=== PATIENT | female | born 1990 | race Caucasian/White ===

== ENCOUNTER 2024-04-24 13:57 | Outpatient (OUT) | payer MEDICAID, SELFPAY ==
--- NOTE | 2024-04-24 13:59 | US_ITS ---
The [address] [address] Patient Name: ELLEN MITCHELL MRN: [id number] date: 1990 Sex: F Assigned Patient Location: Current Patient Location: Accession/Order Number: [id number] Exam Date: 04/24/2024 14:00 Report Date: 04/25/2024 06:34 At the request of: ISRAEL LUNA Procedure: US pelvis w/ transvaginal EXAMINATION: US pelvis w/ transvaginal HISTORY: Polycystic Ovarian Syndrome E28.2 . COMPARISON: No relevant comparison available. TECHNIQUE: Transabdominal and/or transvaginal sonographic examination was performed as indicated by examination type. FINDINGS: UTERUS: Normal size and appearance. Uterus size: 6.7 x 3.9 x 5.1 cm ENDOMETRIUM: Contains a few tiny calcifications; likely dystrophic. Normal homogeneous appearance. Endometrial thickness: 11 mm RIGHT OVARY: Normal size and appearance. Duplex Doppler demonstrates normal waveform and flow; resistive index 0.5. Ovary size: 2. 63.1 x 2.0 cm LEFT OVARY: Normal size and appearance. Duplex Doppler demonstrates normal waveform and flow; resistive index 0.3. Ovary size: 2.8 x 2.1 x 2.1 cm CUL-DE-SAC: Unremarkable. No significant free fluid. BLADDER: Unremarkable. OTHER: None. US/US pelvis w/ transvaginal IMPRESSION: 1. Normal appearance of ovaries. No findings to suggest polycystic ovarian syndrome. Electronically authenticated by: LUBNA HERCULES Date: 04/25/2024 06:34
[2024-04-24 14:56] LABS: Basophils Absolute Auto 0.1 10^3/uL (0.0-0.1); Basophils Percent Auto 0.5 % (0.2-2.0); Eosinophils Absolute Auto 0.3 10^3/uL (0.0-0.7); Eosinophils Percent Auto 2.8 % (0.9-7.0); Hematocrit 39.7 % (36.0-48.0); Hemoglobin 13.4 g/dL (12.0-16.0); Immature Granulocytes Abs Auto 0.03 10^3/uL (0.00-0.03); Immature Granulocytes Pct Auto 0.3 % (0.0-0.5); Lymphocytes Absolute Auto 2.9 10^3/uL (1.2-3.8); Lymphocytes Percent Auto 24.4 % (20.5-60.0); Mean Corpuscular HGB Conc 33.8 g/dL (29.9-35.2); Mean Corpuscular Hemoglobin 30.7 pg (26.7-34.0); Mean Corpuscular Volume 91.1 fL (81.0-99.0); Mean Platelet Volume 10.1 fL (9.5-13.5); Monocytes Absolute Auto 0.6 10^3/uL (0.3-0.8); Monocytes Percent Auto 5.2 % (1.7-12.0); Neutrophils Percent Auto 66.8 % (43.0-75.0); Platelet Count 303 10^3/uL (150-450); Red Blood Count 4.36 10^6/uL (4.20-5.40)
[2024-04-25 04:10] LABS: FSH 2.2 mIU/mL (.); Luteinizing Hormone(LH) 3.7 mIU/mL (.)
[2024-04-25 09:35] LABS: Thyroid Stimulating Hormone 1.117 uIU/mL (0.358-3.740)
[2024-04-25 09:36] LABS: HCG Quantitative <1 mIU/mL
[2024-04-25 09:55] LABS: Free T4 1.02 ng/dL (0.76-1.46)
[2024-04-25 10:46] LABS: Estimated Average Glucose 100 mg/dL; Glycohemoglobin A1C 5.1 % (4.5-6.2)
[2024-04-27 00:10] LABS: DHEA, Serum 250 ng/dL (31-701)
[2024-04-27 03:09] LABS: Anti-Mullerian Hormone (AMH) 2.68 ng/mL (.)
== END 2024-04-24 13:58 | disposition home or self-care (01) ==
LOC: US 13:57
PROVIDERS: PCP Nurse Practitioner; Visit Provider Obstetrics & Gynecology
DX: E28.2 Polycystic ovarian syndrome (principal); R10.2 Pelvic and perineal pain; N93.9 Abnormal uterine and vaginal bleeding, unspecified
CPT/HCPCS: 36415; 76830; 76856; 82397; 82626; 82627; 83001; 83002; 83036; 84439; 84443; 84702; 85025

== ENCOUNTER 2024-05-18 12:18 | Outpatient (OUT) | payer MEDICAID, SELFPAY ==
--- OUTSIDE RECORDS SUMMARY | 2024-05-18 12:20 | XMS_ITS | CCD ---
Author Organization [facility] Care Team Providers Care [employer] Team Member Name Role Phone Pinky Singh Unavailable JOHNNY DELEON Referring Unavailable SERVICES, [facility] Primary Care Unava TUCKER Blake Attending Unavailable JOHNNY DELEON Referring Unavailable SERVICES, [facility] Unava ilISRAEL Moran Attending Unavailable ISRAEL LUNA Attending Unavailable Medications Current Medications Medication Drug Class(es) Dates Sig (Normalized) Sig (Original) amoxicillin 875 mg / clavulanate 125 mg oral tablet (1 source) Penicillin-class Antibacterial Start: 11-24-2023 take 1 tablet by mouth twice daily Amoxicillin-Pot Clavulanate Active 1 TAB PO Twice daily November 24, 2023 12:00am fluticasone propionate 0.05 mg/actuat metered dose nasal spray (1 source) Corticosteroid Start: 11-24-2023 take 1 spray(s) nasal route once daily Fluticasone Propionate Active 2 SPRAY INTRANASAL Daily November 24, 2023 12:00am administer into each nostril predniSONE 20 mg oral tablet (1 source) Start: 11-24-2023 take 20 mg by mouth twice daily Prednisone Active 20 MG PO Twice daily 10 November 24, 2023 12:00am Problems Active Problems Problem Classification Problem Date Documented Da te Episodic/Chronic Cardiac dysrhythmias (1 source) Palpitations; Translations: [Palpitations] Onset: 03-13-2024 Episodic Immunizations and screening for infectious disease (3 sources) Contact with and (suspected) exposure to other viral communicable diseases; Translations: [Contact with or exposure to other viral diseases] Episodic Other upper respiratory infections (1 source) Chronic sinusitis, unspecified; Translations: [Unspecified sinusitis (chronic)] 11-24-2023 Chronic Other upper respiratory infections (2 sources) Sore throat symptom; Translations: [Acute pharyngitis, unspecified] 11-24-2023 Episodic Unclassified (1 source) New Patient Onset: 03-13-2024 Past or Other Problems Problem Classification Problem Date Documented Da te Episodic/Chronic Viral infection (1 source) COVID-19 Results Test Name Value Interpretation Reference Range Facil ity No Panel InformationOrdered By: Pinky Singh on 11-24-2023 Quick Strep (POC) [facility] COVID/FLU/RSV RT-PCRon 10-11 SARS-CoV-2 (COVID-19) RNA PEACE+probe Ql (Unsp spec) Positive [facility] [employer] Other COVID/FLU/RSV RT-PCR Negative [facility] [employer] Other Vital Signs Date Time Vital Sign Value Performing Clinician Facility 11-24-2023 12:26-0400 Body height 172.72 cm [facility] 11-24-2023 12:26-0400 Body mass index (BMI) [Ratio] 42.6 kg/m2 [facility] 11-24-2023 12:26-0400 Body temperature 97.3 [degF] [facility] 11-24-2023 12:26-0400 Body weight 127.11 kg [facility] 11-24-2023 12:26-0400 Diastolic blood pressure 84 mm[Hg] [facility] 11-24-2023 12:26-0400 Heart rate 75 /min [facility] 11-24-2023 12:26-0400 Respiratory rate 18 /min [facility] 11-24-2023 12:26-0400 SaO2% (BldA) [Mass fraction] 98 % [facility] 11-24-2023 12:26-0400 Systolic blood pressure 130 mm[Hg] [facility] 10-11-2022 11:35-0500 Body height 172.72 cm Pinky Singh Other [facility] [employer] Other 10-11-2022 11:35-0500 Body mass index (BMI) [Ratio] 42.27 kg/m2 Pinky Singh Other [email or web address] Other 10-11-2022 11:35-0500 Body temperature 97.8 [degF] Pinky Hernandezmond Other [email or web address] Other 10-11-2022 11:35-0500 Body weight 126.1 kg Pinky Singh Other [email or web address] Other 10-11-2022 11:35-0500 Respiratory rate 18 /min Pinky Hernandezmond Other [email or web address] Other 10-11-2022 11:35-0500 SaO2% (BldA) [Mass fraction] 98 % Pinky Hernandezmond Other [email or web address] Other Encounters Encounter Date Encounter Type Care Provider Facility Start: 05-03-2024 End: 05-03-2024 ambulatory ISRAEL CHERYL Not Available Start: 04-10-2024 End: 04-10-2024 ambulatory ISRAEL CHERYL Not Available Start: 03-13-2024 End: 03-13-2024 ambulatory TUCKER Lerner [facility] Start: 02-06-2024 End: 02-06-2024 ambulatory JOHNNY DELEON [facility] Start: 11-24-2023 End: 11-24-2023 ambulatory [facility] Work Phone: Start: 11-24-2023 End: 11-24-2023 Patient encounter procedure [facility] Work Phone: Start: 10-11-2022 End: 10-11-2022 ambulatory Pinky Singh Other [email or web address] Other Start: 10-11-2022 Office outpatient ne w 20 minutes Pinky Singh [facility] Procedures Date Procedure Procedure Detail Performing Clinician Start: 11-24-2023 Quick Strep (POC) Payers Date Payer Category Payer Medicaid [id number] 2. [id number] 1990 Unknown [id number] 1990 Unknown [id number] 1990 Unknown [id number] [id number] 1990 Unknown [id number] 2.16.84 [id number] Social History Date Type Detail Facility Sex Assigned At [facility] [employer] Other Start: 1990 Sex Assigned At Female F [facility] Evaluation note 10-11-2022 Note Date & Type Note Facility 10-11-2022 Evaluation note Encounter Date Diagnosis Assessment Notes Sep, Contact with and (suspected) exposure to other viral communicable diseases (ICD-10 - Z20.828) Sep, COVID-19 (ICD-10 - U07.1) Discharge Instructions for COVID-19 (Suspected or Confirmed ) material was printed Drink plenty fluids, get plenty of rest. Take Tylenol or Motrin as needed for aches pains or fevers. Follow-up with your family physician if no improvement in 2 to 3 days. You must quarantine for 5 days after the onset of your symptoms of COVID [facility] [employer] Other Chief complaint+Reason for visit Narrative Note Date & Type Note Facility Chief complaint+Reason for visit Narrative Reason for Visit Contact with and (suspected) exposure to covid-19 Sore throat Sinusitis [facility] Work Phone: Evaluation note Note Date & Type Note Facility Evaluation note Diagnosis Onset Date Contact with and (suspected) exposure to covid-19 acute Sore throat acute Sinusitis noneactive [facility] Work Phone: Family History No Family History Records Found Relationship Condition Age at Onset Recorded Date/T ellis father Hypertension Unknown Diabetes mellitus Unknown Not Specified Hypertension Unknown Advance Directives No Advanced Directives Records Found Advance Directive Response Recorded Date/ Time Advance Directives No November 23 12:20pm Summary Purpose Additional Source Comments REASON FOR VISIT (unrecogniz ed section and content) COUGH, CONGESTION, H/A Care Teams (unrecognized sec tion and content) Team Status: Active Member Role Status Dates PHYSICIAN NO FAMILY Primary Care Provider Active Team Status: Inactive Member Role Status Dates PHYSICIAN NO FAMILY Primary Care Provider Active Start: November 24, 2023 End: November 24, 2023 FABI Farias Attending Provider Active S tart: November 24, 2023 End: November 24, 2023 Goals (unrecognized section and content) Goals may be documented in a n alternate section INFORMATION SOURCE (unrecogn ized section and content) DATE CREATED AUTHOR 03/15/2024 [facility] DATE CREATED AUTHOR 'Trent ORGANIZ ATION 05/05/2024 [facility] EPIC FOR RECORDS PERTAINING TO PATIENTS WHO ARE OR HAVE BEEN ENROLLED IN A CHEMICAL DEPENDENCY/SUBSTANCEABUSE PROGRAM, SOME INFORMATION MAY BE OMITTED. This clinical summary was aggregated from multiple sources. Caution should be exercised in using it in the provision of clinical care. This summary normalizes information from multiple sources, and as a consequence, information in this document may materially change the coding, format and clinical context of patient data. In addition, data may be omitted in some cases. CLINICAL DECISIONS SHOULD BE BASED ON THE PRIMARY CLINICAL RECORDS. [facility] [employer] [facility]. provides no warranty or guarantee of the accuracy or completeness of information in this document.
== END 2024-05-18 12:19 | disposition home or self-care (01) ==
LOC: PST 12:18
PROVIDERS: PCP Nurse Practitioner; Visit Provider Obstetrics & Gynecology
DX: Z01.818 Encounter for other preprocedural examination (principal); R10.2 Pelvic and perineal pain; N83.9 Noninflammatory disorder of ovary, fallopian tube and broad ligament, unspecified

== ENCOUNTER 2024-06-01 08:10 | Day surgery (SDC) | payer MEDICAID, SELFPAY ==
[2024-05-18 12:50] VITALS: BP 153/94; PULSE 80; TEMP 36.3; O2SAT 96; BMI 39.9
[2024-06-01] VITALS (20 sets, daily range): BP systolic 110–149; BP diastolic 67–94; PULSE 51–91; TEMP 36.1–36.3; O2SAT 15–99; BMI 39.3
--- OUTSIDE RECORDS SUMMARY | 2024-06-01 08:24 | XMS_ITS | CCD ---
Author Organization [facility] Care Team Providers Care Microfilm Processor Name Role Phone Pinky Singh Unavailable JOHNNY DELEON Referring Unavailable SERVICES, [facility] Primary Care Unava TUCKER Blake Attending Unavailable JOHNNY DELEON Referring Unavailable SERVICES, [facility] Unava ilISRAEL Moran Attending Unavailable ISRAEL LUNA [...] Pinky Singh on 11-24-2023 Quick Strep (POC) [facility] COVID/FLU/RSV RT-PCRon 10-11 SARS-CoV-2 (COVID-19) RNA PEACE+probe Ql (Unsp spec) Positive [place] [employer] Other COVID/FLU/RSV RT-PCR Negative [facility] [employer] Other Vital Signs Date Time Vital Sign Value Performing Clinician Facility 11-24-2023 12:26-0400 Body height 172.72 cm [facility] 11-24-2023 12:26-0400 Body mass index (BMI) [Ratio] 42.6 kg/m2 [facility] 11-24-2023 12:26-0400 Body temperature 97.3 [degF] [facility] 11-24-2023 12:26-0400 Body weight 127.11 kg [facility] 11-24-2023 12:26-0400 Diastolic blood pressure 84 mm[Hg] [facility] 11-24-2023 12:26-0400 Heart rate 75 /min [facility] 11-24-2023 12:26-0400 Respiratory rate 18 /min [facility] 11-24-2023 12:26-0400 SaO2% (BldA) [Mass fraction] 98 % [facility] 11-24-2023 12:26-0400 Systolic blood pressure 130 mm[Hg] [facility] 10-11-2022 11:35-0500 Body height 172.72 cm Pinky Singh Other [place] [employer] Other 10-11-2022 11:35-0500 Body mass index (BMI) [Ratio] 42.27 kg/m2 Pinky Singh Other [facility] Other 10-11-2022 11:35-0500 Body temperature 97.8 [degF] Pinky Hernandezmond Other [facility] Other 10-11-2022 11:35-0500 Body weight 126.1 kg Pinky Singh Other [facility] Other 10-11-2022 11:35-0500 Respiratory rate 18 /min Pinky Hernandezmond Other [facility] Other 10-11-2022 11:35-0500 SaO2% (BldA) [Mass fraction] 98 % Pinky Hernandezmond Other [facility] Other Encounters Encounter Date Encounter Type Care Provider Facility Start: 05-03-2024 End: 05-03-2024 ambulatory ISRAEL CHERYL Not Available Start: 04-10-2024 End: 04-10-2024 ambulatory ISRAEL CHERYL Not Available Start: 03-13-2024 End: 03-13-2024 ambulatory TUCKER Lerner [facility] Start: 02-06-2024 End: 02-06-2024 ambulatory JOHNNY DELEON [facility] Start: 11-24-2023 End: 11-24-2023 ambulatory [facility] Work Phone: Start: 11-24-2023 End: 11-24-2023 Patient encounter procedure [facility] Work Phone: Start: 10-11-2022 End: 10-11-2022 ambulatory Pinky Singh Other [facility] Other Start: 10-11-2022 Office outpatient ne w 20 minutes Pinky Singh [facility] Procedures Date Procedure Procedure Detail Performing Clinician Start: 11-24-2023 Quick Strep (POC) Payers Date Payer Category Payer Medicaid [id number] 2. [id number] 1990 Unknown [id number] [id number] 1990 Unknown [id number] [id number] [id number] 1990 Unknown [id number] [id number] 1990 Unknown [id number] [id number] Social History Date Type Detail Facility Sex Assigned At [facility] Other Start: 1990 Sex Assigned At Female F [facility] Evaluation note 10-11-2022 Note Date & Type [...] the onset of your symptoms of COVID [facility] Other Chief complaint+Reason for visit Narrative Note Date & Type Note Facility Chief complaint+Reason for visit Narrative Reason for Visit Contact with and (suspected) exposure to covid-19 Sore throat Sinusitis [facility] Work Phone: Evaluation note Note Date & Type Note Facility Evaluation note Diagnosis Onset Date Contact with and (suspected) exposure to covid-19 acute Sore throat acute Sinusitis noneactive [facility] Work Phone: Family History No Family History [...] section and content) DATE CREATED AUTHOR 03/15/2024 [facility] DATE CREATED AUTHOR 'Trent ORGANIZ ATION 05/05/2024 [facility] EPIC FOR RECORDS PERTAINING TO [...] BE BASED ON THE PRIMARY CLINICAL RECORDS. [facility] [employer] [facility]. provides no warranty or guarantee of the accuracy or completeness of information in this document.
[2024-06-01 08:31] LABS: Basophils Absolute Auto 0.1 10^3/uL (0.0-0.1); Basophils Percent Auto 0.6 % (0.2-2.0); Eosinophils Absolute Auto 0.2 10^3/uL (0.0-0.7); Eosinophils Percent Auto 2.8 % (0.9-7.0); Hematocrit 40.6 % (36.0-48.0); Hemoglobin 13.5 g/dL (12.0-16.0); Immature Granulocytes Abs Auto 0.02 10^3/uL (0.00-0.03); Immature Granulocytes Pct Auto 0.3 % (0.0-0.5); Lymphocytes Absolute Auto 1.8 10^3/uL (1.2-3.8); Mean Corpuscular HGB Conc 33.3 g/dL (29.9-35.2); Mean Corpuscular Hemoglobin 30.6 pg (26.7-34.0); Mean Corpuscular Volume 92.1 fL (81.0-99.0); Mean Platelet Volume 9.8 fL (9.5-13.5); Monocytes Absolute Auto 0.5 10^3/uL (0.3-0.8); Monocytes Percent Auto 6.6 % (1.7-12.0); Neutrophils Absolute Auto 5.3 10^3/uL (1.4-6.5); Neutrophils Percent Auto 66.7 % (43.0-75.0); Platelet Count 284 10^3/uL (150-450); Red Blood Count 4.41 10^6/uL (4.20-5.40); Red Cell Distribution Width 12.1 % (11.0-15.0)
[2024-06-01 08:47] LABS: HCG Quantitative <1 mIU/mL
[2024-06-01] MEDS: 0.9 % SODIUM CHLORIDE 500 ML 50 ML IV ×3 (08:47→12:46)
--- NOTE | 2024-06-01 10:09 | P.ON_ITS ---
Brief Operative Note Date of procedure: 06/01/24 Pre-op diagnosis general: pelvic pain Post-op diagnosis: same as pre-op Procedure: NAME OF PROCEDURE: [diagnostic laparoscopy with chromopertubation ] PROCEDURE: The patient was taken back to the Operating Room where she was placed in dorsal lithotomy position after given general anesthesia. The patient was prepped and draped in normal sterile fashion. A humi manipulator was placed into the patient's uterus. Attention was turned to the patient's abdomen, where a small umbilical incision was made. The fascia was tented using Augustina clamps and the fascia was entered sharply. Confirmation of intraabdominal placement of the 10 mm port was confirmed under direct visualization using a laparoscope. The patient's abdomen was then insufflated using CO2 gas with approximately 4 liters. A second port was placed left laterally, this was done under direct visualization with a 5 mm port. Survey of the patient's abdomen demonstrated normal liver and gallbladder. Survey of the patient's pelvic anatomy demonstrated normal appearing rt and lt ovary and tubes as well as normal appearing uterus. spillage of dye seen from both tubes. No endometrial implants could be noted, no evidence of any pelvic disease was seen, normal appearing pelvic cavity. All instruments were removed from the patient's abdomen. The patient's abdomen was deinsufflated of CO2 gas. The patient tolerated the procedure well. Sponge stick was removed from the patient's vagina. The patient's infraumbilical fascia was closed using #0 Vicryl on a GI needle. The patient's skin was closed laterally and infraumbilically using 4-0 Vicryl. The patient tolerated the procedure well. Sponge, lap and needle counts were correct x 2. The patient was taken to Recovery Room in stable condition. Anesthesia: EDIA Surgeon: Caesar Broderick Engagement Specialist: Laverne Mallory Estimated blood loss (mL): 5 Pathology: none sent Condition: stable Disposition: PACU Urinary Catheter Management Urinary Catheter Management Urethral: Cath placed during this visit: no
[2024-06-01] MEDS: METHYLENE BLUE 50 MG/10 ML AMPULE INJ (10:15)
[2024-06-01] MEDS: HYDROCODONE/ACET 5-325 MG TABLET 1 TAB PO (10:47)
[2024-06-01] MEDS: HYDROMORPHONE HCL 0.5 MG/0.5 ML SYRINGE IV (10:55)
[2024-06-01] MEDS: PROMETHAZINE HCL 25 MG TABLET PO (11:01)
[2024-06-01] MEDS: MEPERIDINE HCL/PF 25 MG/ML VIAL IM (11:20)
[2024-06-01] MEDS: PROMETHAZINE HCL 25 MG/ML VIAL IM (11:20)
== END 2024-06-01 13:18 | disposition home or self-care (01) ==
PROVIDERS: PCP Nurse Practitioner; Visit Provider Obstetrics & Gynecology
PROC: (CPT 840; principal; 2024-06-01 09:30)
DX: R10.2 Pelvic and perineal pain (principal); N83.9 Noninflammatory disorder of ovary, fallopian tube and broad ligament, unspecified; K21.9 Gastro-esophageal reflux disease without esophagitis
CPT/HCPCS: 00840; 00952; 49320; 58350; 36415; 84702; 85025; J0131; J1100; J1171; J1885; J2175; J2250; J2405; J2704; J3010; Q0169

== ENCOUNTER 2024-07-18 11:38 | Outpatient (RCR) | payer MEDICAID, SELFPAY ==
[2024-07-19 04:07] LABS: Progesterone 16.8 ng/mL (.)
== END 2024-08-21 23:59 | disposition home or self-care (01) ==
LOC: LAB 11:38
PROVIDERS: PCP Nurse Practitioner; Visit Provider Obstetrics & Gynecology
DX: N83.9 Noninflammatory disorder of ovary, fallopian tube and broad ligament, unspecified (principal); E28.2 Polycystic ovarian syndrome
CPT/HCPCS: 36415; 84144

== ENCOUNTER 2024-08-16 15:24 | Outpatient (RCR) | payer MEDICAID, SELFPAY ==
[2024-08-18 04:07] LABS: Progesterone 8.5 ng/mL (.)
== END 2024-08-21 10:42 | disposition home or self-care (01) ==
LOC: LAB 15:24
PROVIDERS: PCP Nurse Practitioner; Visit Provider Obstetrics & Gynecology
DX: N83.9 Noninflammatory disorder of ovary, fallopian tube and broad ligament, unspecified (principal); E28.2 Polycystic ovarian syndrome
CPT/HCPCS: 36415; 84144

== ENCOUNTER 2024-09-17 14:10 | Outpatient (OUT) | payer MEDICAID, SELFPAY ==
--- OUTSIDE RECORDS SUMMARY | 2024-09-17 14:16 | XMS_ITS | CCD ---
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 Name Role Phone Pinky Singh Unavailable JOHNNY DELEON Referring Unavailable SERVICES, Primary Care Unava ilable TUCKER FLORES Attending Unavailable JOHNNY DELEON Referring Unavailable SERVICES, Primary Care Unava ilable Krolman Judy Unavailable Unavailable ISRAEL BRODERICK Attending Unavailable ISRAEL BRODERICK Attending Unavailable ISRAEL BRODERICK Attending Unavailable ISRAEL BRODERICK Attending Unavailable Unavailable Primary Care Provider Unavailabl e Medications Current Medications Medication Drug Class(es) Dates Sig (Normalized) Sig (Original) amoxicillin 875 mg / clavulanate 125 mg oral tablet (1 source) Penicillin-class Antibacterial Start: 11-24-2023 take 1 tablet by mouth twice daily Amoxicillin-Pot Clavulanate Active 1 TAB PO Twice daily November 24, 2023 12:00am fluticasone propionate 0.05 mg/actuat metered dose nasal spray (3 sources) Corticosteroid Start: 11-24-2023 End: 04-10-2024 fluticasone (Flonase) 50 MCG/ACT nasal spray Daily 11/24/2023 04/10/2024 Discontinued (Other) Start: 11-24-2023 take 1 spray(s) nasa l route once daily Fluticasone Propionate Active 2 SPRAY INTRANASAL Daily November 24, 2023 12:00am administer into each nostril 24 hr metFORMIN hydrochloride 500 mg extended release oral tablet (11 sources) Biguanide Start: 04-10-2024 End: 05-10-2024 take 1 tablet by mouth every twenty-four hours at mealtime metFORMIN XR (Glucophage-XR) 500 MG 24 hr tablet Indications: PCOS (polycystic ovarian syndrome) , Abnormal uterine bleeding (AUB) Take 1 tablet (500 mg) by mouth in the evening. Take with meals Do not crush, chew, or split. 30 tablet 11 04/10/2024 Active omeprazole 20 mg delayed release oral capsule (13 sources) Proton Pump Inhibitor Start: 01-24-2024 take 1 capsule by mouth in the morning omeprazole (PriLOSEC) [address] capsule Take 20 mg by mouth in the morning. 01/24/2024 Active predniSONE 20 mg oral tablet (1 source) Start: 11-24-2023 take 20 mg by mouth twice daily Prednisone Active 20 MG PO Twice daily 10 November 24, 2023 12:00am sertraline 50 mg oral tablet (3 sources) Serotonin Reuptake Inhibitor Start: 08-04-2023 End: 04-10-2024 take 1 tablet by mouth once daily sertraline (Zoloft) 50 MG tablet Take 50 mg by mouth Daily 08/04/2023 04/10/2024 Discontinued (Other) End: 05-03-2024 sertraline (Zoloft) 25 MG ta blet Take by mouth Daily 05/03/2024 Discontinued (Therapy completed) Completed/Discontinued Medications Medication Drug Class(es) Dates Sig (Normalized) Sig (Original) cholecalciferol 0.01 mg chewable tablet (14 sources) Vitamin D Start: 01-26-2024 End: 05-03-2024 Cholecalciferol 10 MCG (400 UNIT) chewable tablet 1 (one) time each day at the same time 01/26/2024 05/03/2024 Discontinued (Therapy completed) take 2 tablets by mouth once blaine ly D-400 10 MCG (400 UNIT) tablet TAKE 2 TABLETS BY MOUTH ONCE DAILY FOR 30 DAYS Active Problems Active Problems Problem Classification Problem Date Documented Date Episodic/Chronic Abdominal pain (3 sources) Pain in female pelvis; Translations: [Pelvic and perineal pain] 05-03-2024 Episodic Cardiac dysrhythmias (1 source) Palpitations; Translations: [Palpitations] Onset: 03-13-2024 Episodic Contraceptive and procreative management (4 sources) Patient encounter status; Translations: [Encounter for other procreative management] 07-23-2024 Episodic Immunizations and screening for infectious disease (3 sources) Contact with and (suspected) exposure to other viral communicable diseases; Translations: [Contact with or exposure to other viral diseases] Episodic Other aftercare (2 sources) Postoperative visit; Translations: [Encounter for other specified surgical aftercare] 06-11-2024 Episodic Other endocrine disorders (5 sources) Polycystic ovary syndrome; Translations: [Polycystic ovarian syndrome] Onset: 07-30-2024 07-23-2024 Chronic Other female genital disorders (2 sources) Abnormal uterine bleeding; Translations: [Abnormal uterine and vaginal bleeding, unspecified] 04-10-2024 Chronic Other female genital disorders (2 sources) Fallopian tube disorder; Translations: [Noninflammatory disorder of ovary, fallopian tube and broad ligament, unspecified] Onset: 07-30-2024 05-03-2024 Episodic Other upper respiratory infections (1 source) Chronic sinusitis, unspecified; Translations: [Unspecified sinusitis (chronic)] 11-24-2023 Chronic Other upper respiratory infections (2 sources) Sore throat symptom; Translations: [Acute pharyngitis, unspecified] 11-24-2023 Episodic Residual codes; unclassified (2 sources) History of laparoscopy; Translations: [Other specified postprocedural states] 06-11-2024 Episodic Unclassified (1 source) New Patient Onset: 03-13-2024 Past or Other Problems Problem Classification Problem Date Documented Da te Episodic/Chronic Viral infection (1 source) COVID-19 Results Test Name Value Interpretation Reference Range Facility ALL PROGESTERONEon 4 PROGESTERONE 8.5 ng/mL . [facility] are Comment on above: Follicular phase 0.1 - 0.9 Luteal phase 1.8 - 23.9 Ovulation phase 0.1 - 12.0 First trimester 11.0 - 44.3 Second trimester 25.4 - 83.3 Third trimester 58.7 - 214.0 Postmenopausal 0.0 - 0.1 Performed at: - [facility] [id number] Mold Filler And Drainer: Yobany Blount PhD, Phone: [phone] [facility] ALL PROGESTERONEon 4 PROGESTERONE 16.8 ng/mL . [facility] are Comment on above: Follicular phase 0.1 - 0.9 Luteal phase 1.8 - 23.9 Ovulation phase 0.1 - 12.0 First trimester 11.0 - 44.3 Second trimester 25.4 - 83.3 Third trimester 58.7 - 214.0 Postmenopausal 0.0 - 0.1 Performed at: - [facility] [id number] [employer] Filler And Drainer: Yobany Blount PhD, Phone: [phone] [facility] ALL CBC WITH AUTO DIFFon BASOPHILS ABSOLUTE AUTO 0.1 N [facility] Basophils/100 WBC (Bld) 0.6 % 0.2 - 2.0 % [facility] Eosinophils/100 WBC (Bld) 2.8 % 0.9 - 7.0 % [facility] Erythrocyte distribution width (RBC) [Ratio] 12.1 % 11.0 - 15.0 % [facility] Hematocrit (Bld) [Volume fraction] 40.6 % 36.0 - 48.0 % [facility] Hemoglobin (Bld) [Mass/Vol] 13.5 g/dL 12.0 - 16.0 g/dL [facility] IMMATURE GRANULOCYTES ABS AUTO 0.02 [facility] Immature granulocytes/100 WBC (Bld) 0.3 % 0.0 - 0.5 % [facility] LYMPHOCYTES ABSOLUTE AUTO 1.8 [facility] Lymphocytes/100 WBC (Bld) 23.0 % 20.5 - 60.0 % [facility] MCH (RBC) [Entitic mass] 30.6 pg 26.7 - 34.0 pg [facility] MCHC (RBC) [Mass/Vol] 33.3 g/dL 29.9 - 35.2 g/dL [facility] MCV (RBC) [Entitic vol] 92.1 fL 81.0 - 99.0 fL [facility] MONOCYTES ABSOLUTE AUTO 0.5 N [facility] Monocytes/100 WBC (Bld) 6.6 % 1.7 - 12.0 % [facility] NEUTROPHILS ABSOLUTE AUTO 5.3 [facility] Neutrophils/100 WBC (Bld) 66.7 % 43.0 - 75.0 % [facility] Platelet mean volume (Bld) [Entitic vol] 9.8 fL 9.5 - 13.5 fL [facility] EO # 0.2 [facility] PLT 284 [facility] RBC 4.41 [facility] WBC 8.0 [facility] ALL CBC WITH AUTO DIFFon BASOPHILS ABSOLUTE AUTO 0.1 N [facility] Basophils/100 WBC (Bld) 0.5 % 0.2 - 2.0 % [facility] Eosinophils/100 WBC (Bld) 2.8 % 0.9 - 7.0 % [facility] Erythrocyte distribution width (RBC) [Ratio] 12.0 % 11.0 - 15.0 % [facility] Hematocrit (Bld) [Volume fraction] 39.7 % 36.0 - 48.0 % [facility] Hemoglobin (Bld) [Mass/Vol] 13.4 g/dL 12.0 - 16.0 g/dL [facility] IMMATURE GRANULOCYTES ABS AUTO 0.03 [facility] Immature granulocytes/100 WBC (Bld) 0.3 % 0.0 - 0.5 % [facility] Interpretation and review of laboratory results Abnormal [facility] LYMPHOCYTES ABSOLUTE AUTO 2.9 [facility] Lymphocytes/100 WBC (Bld) 24.4 % 20.5 - 60.0 % [facility] MCH (RBC) [Entitic mass] 30.7 pg 26.7 - 34.0 pg [facility] MCHC (RBC) [Mass/Vol] 33.8 g/dL 29.9 - 35.2 g/dL [facility] MCV (RBC) [Entitic vol] 91.1 fL 81.0 - 99.0 fL [facility] MONOCYTES ABSOLUTE AUTO 0.6 N [facility] Monocytes/100 WBC (Bld) 5.2 % 1.7 - 12.0 % [facility] NEUTROPHILS ABSOLUTE AUTO 8.0 High [facility] Neutrophils/100 WBC (Bld) 66.8 % 43.0 - 75.0 % [facility] Platelet mean volume (Bld) [Entitic vol] 10.1 fL 9.5 - 13.5 fL [facility] EO # 0.3 [facility] PLT 303 [facility] RBC 4.36 [facility] WBC 12.0 High [facility] No Panel InformationOrdered By: Pinky Singh on 11-24-2023 Quick Strep (POC) [facility] Cervical or vaginal smear or scraping studyon 11-19-2022 [facility] COVID/FLU/RSV RT-PCRon 10-11 SARS-CoV-2 (COVID-19) RNA PEACE+probe Ql (Unsp spec) Positive [facility] Other COVID/FLU/RSV RT-PCR Negative [facility] Other Vital Signs Date Time Vital Sign Value Performing Clinician Facility 07-23-2024 13:12-0500 Body mass index (BMI) [Ratio] 40.01 kg/m2 Israel Davie DO Work Phone: [facility] 07-23-2024 13:12-0500 Body weight 119.35 kg Israel Davie DO Work Phone: [facility] 07-23-2024 13:12-0500 Diastolic blood pressure 78 mm[Hg] Israel Davie DO Work Phone: [facility] 07-23-2024 13:12-0500 Systolic blood pressure 130 mm[Hg] Israel Davie DO Work Phone: [facility] 06-11-2024 14:39-0400 Body height 172.7 cm Israel Davie DO Work Phone: [facility] 06-11-2024 14:39-0400 Body mass index (BMI) [Ratio] 39.53 kg/m2 Israel Davie DO Work Phone: [facility] 06-11-2024 14:39-0400 Body weight 117.94 kg Israel Davie DO Work Phone: [facility] 06-11-2024 14:39-0400 Diastolic blood pressure 76 mm[Hg] Israel Davie DO Work Phone: [facility] 06-11-2024 14:39-0400 Systolic blood pressure 128 mm[Hg] Israel Davie DO Work Phone: [facility] 05-03-2024 11:39-0400 Body weight 118.84 kg Israel Davie DO Work Phone: [facility] 05-03-2024 11:39-0400 Diastolic blood pressure 78 mm[Hg] Israel Davie DO Work Phone: [facility] 05-03-2024 11:39-0400 Systolic blood pressure 130 mm[Hg] Israel Davie DO Work Phone: [facility] 04-10-2024 09:36-0400 Body weight 120.57 kg Israel Davie DO Work Phone: [facility] 04-10-2024 09:36-0400 Diastolic blood pressure 78 mm[Hg] Israel Davie DO Work Phone: [facility] 04-10-2024 09:36-0400 Systolic blood pressure 130 mm[Hg] Israel Davie DO Work Phone: [facility] 11-24-2023 12:26-0400 Body height 172.72 cm [facility] 11-24-2023 12:26-0400 Body mass index (BMI) [Ratio] 42.6 kg/m2 [facility] 11-24-2023 12:26-0400 Body temperature 97.3 [degF] [facility] 11-24-2023 12:26-0400 Body weight 127.11 kg [facility] 11-24-2023 12:26-0400 Diastolic blood pressure 84 mm[Hg] [facility] 11-24-2023 12:26-0400 Heart rate 75 /min [facility] 11-24-2023 12:26-0400 Respiratory rate 18 /min [facility] 11-24-2023 12:26-0400 SaO2% (BldA) [Mass fraction] 98 % [facility] 11-24-2023 12:26-0400 Systolic blood pressure 130 mm[Hg] [facility] 10-11-2022 11:35-0500 Body height 172.72 cm Pinky Singh Other [facility] Other 10-11-2022 11:35-0500 Body mass index (BMI) [Ratio] 42.27 kg/m2 Pinky Singh Other [facility] Other 10-11-2022 11:35-0500 Body temperature 97.8 [degF] Pinky Singh Other [facility] Other 10-11-2022 11:35-0500 Body weight 126.1 kg Pinky Singh Other [facility] Other 10-11-2022 11:35-0500 Respiratory rate 18 /min Pinky Singh Other [facility] Other 10-11-2022 11:35-0500 SaO2% (BldA) [Mass fraction] 98 % Pinky Singh Other [facility] Other Encounters Encounter Date Encounter Type Care Provider Facility Start: 08-16-2024 End: 08-18-2024 [facility] Result Encounter Israel Davie DO Work Phone: [facility] Unsolicited Start: 08-16-2024 End: 08-18-2024 [facility] Result Encounter Israel Davie DO Work Phone: [facility] Unsolicited Start: 07-23-2024 End: 07-23-2024 Bamboo flowsheet Israel Davie DO Work Phone: [facility] Start: 07-23-2024 End: 07-23-2024 Bamboo flowsheet Israel Davie DO Work Phone: [facility] Start: 07-23-2024 End: 07-23-2024 ambulatory ISRAEL DAVIE Not Available Start: 07-23-2024 End: 07-23-2024 Office outpatient visit 15 minutes Israel Davie DO Work Phone: [facility] Comment on above: PCOS (polycystic ova charly syndrome); Encounter for fertility planning Start: 07-18-2024 End: 07-19-2024 [facility] Result Encounter Israel Davie DO Work Phone: [facility] External Department Unsolicited Start: 07-18-2024 End: 07-19-2024 [facility] Result Encounter Israel Davie DO Work Phone: [facility] Unsolicited Start: 06-11-2024 End: 06-11-2024 Postop follow up visit related to original px Israel Davie DO Work Phone: [facility] Comment on above: Postoperative visit; S/P laparoscopic procedure Start: 06-11-2024 End: 06-11-2024 Bamboo flowsheet Israel Davie DO Work Phone: [facility] Start: 06-11-2024 End: 06-11-2024 Bamboo flowsheet Israel Davie DO Work Phone: [facility] Start: 06-11-2024 End: 06-11-2024 ambulatory ISRAEL DAVIE Not Available Start: 06-01-2024 End: 06-01-2024 [facility] Result Encounter Israel Davie DO Work Phone: [facility] External Department Unsolicited Start: 06-01-2024 End: 06-01-2024 [facility] Result Encounter Israel Davie DO Work Phone: [facility] External Department Unsolicited Start: 05-03-2024 End: 05-03-2024 Office outpatient visit 15 minutes Israel Davie DO Work Phone: [facility] Comment on above: Pre-op examination; Pelvic pain in female; Fallopian tube disorder Start: 05-03-2024 End: 05-03-2024 Preprocedural examination done Israel Davie DO Work Phone: [facility] Start: 05-03-2024 End: 05-03-2024 ambulatory ISRAEL DAVIE Not Available Start: 04-24-2024 End: 04-24-2024 [facility] Result Encounter Israel Davie DO Work Phone: [facility] External Department Unsolicited Start: 04-24-2024 End: 04-24-2024 [facility] Result Encounter Israel Davie DO Work Phone: [facility] External Department Unsolicited Start: 04-10-2024 End: 04-10-2024 Bamboo flowsheet Israel Davie DO Work Phone: [facility] Start: 04-10-2024 End: 04-10-2024 Bamboo flowsheet Israel Davie DO Work Phone: [facility] Start: 04-10-2024 End: 04-10-2024 Office outpatient visit 15 minutes Israel Davie DO Work Phone: [facility] Comment on above: Encounter for fertil ity planning; PCOS (polycystic ovarian syndrome); Pelvic pain in female; Abnormal uterine bleeding (AUB) Start: 04-10-2024 End: 04-10-2024 ambulatory ISRAEL DAVIE Not Available Start: 03-13-2024 End: 03-13-2024 ambulatory [facility] Start: 02-06-2024 End: 02-06-2024 ambulatory [facility] Start: 11-24-2023 End: 11-24-2023 ambulatory [facility] Work Phone: Start: 11-24-2023 End: 11-24-2023 Patient encounter procedure [facility] Physician [facility] Work Phone: Start: 10-11-2022 End: 10-11-2022 ambulatory Pinky Singh Other [facility] Other Start: 10-11-2022 Office outpatient ne w 20 minutes Pinky Singh [facility] Procedures Date Procedure Procedure Detail Performing Clinician Start: 08-16-2024 ALL PROGESTERONE Israel Davie DO Work Phone: Start: 07-18-2024 ALL PROGESTERONE Israel Davie DO Work Phone: Start: 06-01-2024 ALL CBC WITH AUTO DIFF Israel Davie DO Work Phone: Start: 04-24-2024 ALL CBC WITH AUTO DIFF Israel Davie DO Work Phone: Start: 11-24-2023 Quick Strep (POC) Start: 11-19-2022 Microscopic observat ion [Identifier] in Cervix by Cyto stain Israel Davie DO Work Phone: Start: 11-19-2022 Cytp cerv/vag auto t hin layer prep mnl screen Bethany Raymundo MITER SAW OPERATOR Work Phone: Plan of Treatment Date Care Activity Detail Author Start: 11-24-2027 Screening for malign ant neoplasm of cervix [facility] Start: 11-19-2025 Screening for malign ant neoplasm of cervix Pap Smear [facility] Start: 11-12-2024 End: 11-12-2024 Patient encounter procedure 11/12/2024 2:10 PM EDT Office Visit [facility] [address] [place] [id number] Israel Broderick, DO [address] [place], [place] [id number] [facility] Start: 07-23-2024 End: 07-23-2024 Patient encounter procedure 07/23/2024 1:00 PM EST Office Visit [facility] [address] [place] [address] Israel Broderick, DO [address] [place] [address] [facility] Start: 06-11-2024 End: 06-11-2024 Patient encounter procedure 06/11/2024 2:20 PM EDT Office Visit [facility] [address] [place] [address] Israel Broderick, DO [address] [place], [place] [id number] Arrived [facility] Comment on above: Arrived Start: 06-01-2024 End: 06-01-2024 Patient encounter procedure 06/01/2024 8:30 AM EDT Procedure Visit [facility] Israel Broderick, DO [address] [facility] [place] [address] [facility] Start: 05-03-2024 End: 05-03-2024 Patient encounter procedure 05/03/2024 11:40 AM EDT Consult [facility] [address] [facility] [place] [id number] Israel Broderick, DO [address] [place] [address] [facility] Start: 04-22-2024 Influenza vaccination Influenza Vacc ine (#1) [facility] Start: 04-10-2024 End: 04-10-2025 Antimullerian hormone (AMH) Antimullerian hormone (AMH) Lab Routine PCOS (polycystic ovarian syndrome) Expected: 04/10/2024 (Approximate), Expires: 04/10/2025 [facility] Comment on above: Expected: 04/10/2024 (Approximate), Expires: 04/10/2025 Start: 04-10-2024 End: 04-10-2025 DHEA DHEA Lab Routine PCOS (polycystic ovarian syndrome) Expected: 04/10/2024 (Approximate), Expires: 04/10/2025 [facility] Comment on above: Expected: 04/10/2024 (Approximate), Expires: 04/10/2025 Start: 04-10-2024 End: 04-10-2025 US for US PELVIS-TRANSVAG IF INDICATED Imaging Routine PCOS (polycystic ovarian syndrome) Pelvic pain in female Expected: 04/10/2024 (Approximate), Expires: 04/10/2025 [facility] Comment on above: Expected: 04/10/2024 (Approximate), Expires: 04/10/2025 Start: 04-10-2024 End: 04-10-2024 Patient encounter procedure 04/10/2024 9:10 AM EDT Office Visit [facility] [address] [facility] [place] [id number] Israel Broderick DO [address] [place] [address] Arrived [facility] Comment on above: Arrived CBC W Auto Different ial panel - Blood CBC and differential Lab Routine PCOS (polycystic ovarian syndrome) Ordered: 04/10/2024 [facility] Comment on above: Ordered: 04/10/2024 DHEA-sulfate DHEA-sulfate Lab Routine PCOS (polycystic ovarian syndrome) Ordered: 04/10/2024 [facility] Comment on above: Ordered: 04/10/2024 Follicle stimulating hormone Follicle stimulating hormone Lab Routine PCOS (polycystic ovarian syndrome) Ordered: 04/10/2024 [facility] Comment on above: Ordered: 04/10/2024 hCG, quantitative, hCG, quantitative, Lab Routine PCOS (polycystic ovarian syndrome) Ordered: 04/10/2024 [facility] Work Phone: Comment on above: Ordered: 04/10/2024 Hemoglobin A1c/Hemoglobin.total in Blood Hemoglobin A1c Lab Routine Pelvic pain in female Abnormal uterine bleeding (AUB) Ordered: 04/10/2024 [facility] Comment on above: Ordered: 04/10/2024 Luteinizing hormone Luteinizing hormone Lab Routine PCOS (polycystic ovarian syndrome) Ordered: 04/10/2024 [facility] Comment on above: Ordered: 04/10/2024 Thyrotropin [Units/volume] in Serum or Plasma TSH Lab Routine PCOS (polycystic ovarian syndrome) Ordered: 04/10/2024 [facility] Comment on above: Ordered: 04/10/2024 Thyroxine (T4) free [Mass/volume] in Serum or Plasma T4, free Lab Routine PCOS (polycystic ovarian syndrome) Ordered: 04/10/2024 [facility] Comment on above: Ordered: 04/10/2024 Payers Date Payer Category Payer Medicaid [id number] 2022 Medicaid [id number] 2. [id number] 1992 Unknown [id number] 1992 Unknown [id number] [id number] 1992 Unknown [id number] [id number] 1992 Unknown [id number] [id number] 1992 Unknown [id number] [id number] 1992 Unknown [id number] [id number] Social History Date Type Detail Facility Sex Assigned At [facility] Other Start: 1990 Sex Assigned At Female F [facility] Tobacco smoking status [facility] Tobacco smoking consumption unknown [facility] Start: 1990 Sex assigned at Not on file [facility] Clinical Notes 10-11-2022 to 07-23-2024 Kita Griggs LPN - 07/23/2024 1:00 PM Katie Casillas LPN - 06/11/2024 2:20 PM Ana Laura Painting - 05/03/2024 11:40 AM Levi Griggs LPN - 04/10/2024 9:10 AM EDT Note Date & Type Note Facility 07-23-2024 History of Presen t illness Narrative Reason for Appointment: Patient ID: Chayo Ramires is a 34 y.o. female who presents for Discuss endocrin referral Patient presents today for Fertility Follow Up appointment. MEDICATIONS Current Outpatient Medications Medication Instructions D-400 10 MCG (400 UNIT) tablet TAKE 2 TABLETS BY MOUTH ONCE DAILY FOR 30 DAYS metFORMIN XR (GLUCOPHAGE-XR) 500 mg, Oral, Daily with evening meal, Do not crush, chew, or split. omeprazole (PRILOSEC) 20 mg, Oral, Daily RT ALLERGIES No Known Allergies PROBLEMS Active Ambulatory Problems Diagnosis Date Noted No Active Ambulatory Problems Resolved Ambulatory Problems Diagnosis Date Noted No Resolved Ambulatory Problems No Additional Past Medical History HISTORY PAST MEDICAL HISTORY SOCIAL HISTORY History reviewed. No pertinent past medical history. Social History Tobacco Use Smoking status: Not on file Smokeless tobacco: Not on file Substance Use Topics Alcohol use: Not on file Drug use: Not on file FAMILY HISTORY Family History Problem Relation Name Age of Onset Other (htn) Mother Other (HTN) Father Diabetes Father Other (epilepsy) Brother Pancreatic cancer Maternal Grandfather SURGICAL HISTORY Past Surgical History: Procedure Laterality Date LAPAROSCOPY DIAGNOSTIC / BIOPSY / ASPIRATION / LYSIS 06/01/2024 WISDOM TOOTH EXTRACTION REVIEW OF SYSTEMS Review of Systems: Review of Systems Constitutional: Negative. HENT: Negative. Eyes: Negative. Respiratory: Negative. Cardiovascular: Negative. Gastrointestinal: Negative. Genitourinary: Negative. Musculoskeletal: Negative. Skin: Negative. Neurological: Negative. All other systems reviewed and are negative. Hematological: Negative. Endocrine: Negative. Allergic/Immunologic: Negative. OBJECTIVE Objective: Physical Exam Constitutional: Appearance: Normal appearance. She is well-developed. Cardiovascular: Rate and Rhythm: Normal rate and regular rhythm. Pulmonary: Effort: Pulmonary effort is normal. Breath sounds: Normal breath sounds. Abdominal: General: Bowel sounds are normal. There is no distension. Palpations: Abdomen is soft. Tenderness: There is no abdominal tenderness. There is no guarding or rebound. Musculoskeletal: General: No swelling. Normal range of motion. Right lower leg: No edema. Left lower leg: No edema. Neurological: Mental Status: She is alert and oriented to person, place, and time. Skin: General: Skin is warm and dry. Psychiatric: Mood and Affect: Mood normal. Behavior: Behavior normal. Vitals and nursing note reviewed. Exam conducted with a laborer heading present. Vitals: Estimated body mass index is 40.01 kg/m as calculated from the following: Height as of 06/11/24: 5' 8 . Weight as of this encounter: 263 lb 1.9 oz. BP: 130/78 No LMP recorded. ASSESSMENT & PLAN ICD-10-CM 1. PCOS (polycystic ovarian syndrome) E28.2 2. Encounter for fertility planning Z31.89 Pt presents to discuss fertility. Pt was on femara this past month. Pt to continue with plan of care- progesterone was 16.8. Pt to be referred to Dr Cisse. Documented by Kita Griggs LPN on behalf of: Israel Broderick DO documented in this encounter [facility] 06-11-2024 History of Presen t illness Narrative Reason for Appointment: Patient ID: Chayo Ramires is a 34 y.o. female who presents for Post-op Visit (Pt present today for post operative visit. Pt had a Dx lap on 06/01/2024.) Patient presents today for Post Op and Consult appointment. MEDICATIONS Current Outpatient Medications Medication Instructions D-400 10 MCG (400 UNIT) tablet TAKE 2 TABLETS BY MOUTH ONCE DAILY FOR 30 DAYS metFORMIN XR (GLUCOPHAGE-XR) 500 mg, Oral, Daily with evening meal, Do not crush, chew, or split. omeprazole (PRILOSEC) 20 mg, Oral, Daily RT ALLERGIES No Known Allergies PROBLEMS Active Ambulatory Problems Diagnosis Date Noted No Active Ambulatory Problems Resolved Ambulatory Problems Diagnosis Date Noted No Resolved Ambulatory Problems No Additional Past Medical History HISTORY PAST MEDICAL HISTORY SOCIAL HISTORY No past medical history on file. Social History Tobacco Use Smoking status: Not on file Smokeless tobacco: Not on file Substance Use Topics Alcohol use: Not on file Drug use: Not on file FAMILY HISTORY Family History Problem Relation Name Age of Onset Other (htn) Mother Other (HTN) Father Diabetes Father Other (epilepsy) Brother Pancreatic cancer Maternal Grandfather SURGICAL HISTORY Past Surgical History: Procedure Laterality Date LAPAROSCOPY DIAGNOSTIC / BIOPSY / ASPIRATION / LYSIS 06/01/2024 WISDOM TOOTH EXTRACTION REVIEW OF SYSTEMS Review of Systems: Review of Systems All other systems reviewed and are negative. OBJECTIVE Objective: Physical Exam Constitutional: Appearance: Normal appearance. She is well-developed. Cardiovascular: Rate and Rhythm: Normal rate and regular rhythm. Pulmonary: Effort: Pulmonary effort is normal. Breath sounds: Normal breath sounds. Abdominal: General: Bowel sounds are normal. There is no distension. Palpations: Abdomen is soft. Tenderness: There is no abdominal tenderness. There is no guarding or rebound. Musculoskeletal: General: No swelling. Normal range of motion. Right lower leg: No edema. Left lower leg: No edema. Neurological: Mental Status: She is alert and oriented to person, place, and time. Skin: General: Skin is warm and dry. Psychiatric: Mood and Affect: Mood normal. Behavior: Behavior normal. Vitals and nursing note reviewed. Exam conducted with a laborer heading present. Vitals: Estimated body mass index is 39.53 kg/m as calculated from the following: Height as of this encounter: 5' 8 . Weight as of this encounter: 260 lb. BP: 128/76 Patient's last menstrual period was 05/29/2024 (approximate). ASSESSMENT & PLAN ICD-10-CM 1. Postoperative visit Z48.89 2. S/P laparoscopic procedure Z98.890 Patient presents for post operative appointment. Patient presents today to discuss fertility. Patient was given a standing lab order and ultrasound to have obtained. Patient was instructed to call the office once menstrual cycle begins so femara can be called into patients pharmacy. Patient has been instructed to take Femara on days 3-7 of cycle. On day 21 of cycle patient is to have progesterone labs drawn. Patient was advised to have intercourse on days 12, 14, 16, 18, and 20 of cycle. We will do three rounds of Femara and if patient has not conceived by then, we will perform HSG. Patient has voiced understanding and will call our office for any further questions/concerns. Follow Up: Follow up in months to discuss fertility if not . Patient to also setup for annual appointment. Documented by Karoline Casillas LPN on behalf of: Israel Broderick DO documented in this encounter [facility] 05-03-2024 History of Presen t illness Narrative Reason for Appointment: Patient ID: Chayo Ramires is a 34 y.o. female who presents for Pre-op Visit Patient presents today for Pre Op appointment. Patient is scheduled to undergo Diagnostic Laparoscopy, possible FLAKITO, possible FOE, possible BSO, possible Chromopertubation on 06/01/[address] Broderick at [facility]. MEDICATIONS Current Outpatient Medications Medication Instructions D-400 10 MCG (400 UNIT) tablet TAKE 2 TABLETS BY MOUTH ONCE DAILY FOR 30 DAYS metFORMIN XR (GLUCOPHAGE-XR) 500 mg, Oral, Daily with evening meal, Do not crush, chew, or split. omeprazole (PRILOSEC) 20 mg, Oral, Daily RT ALLERGIES No Known Allergies PROBLEMS Active Ambulatory Problems Diagnosis Date Noted No Active Ambulatory Problems Resolved Ambulatory Problems Diagnosis Date Noted No Resolved Ambulatory Problems No Additional Past Medical History HISTORY PAST MEDICAL HISTORY SOCIAL HISTORY No past medical history on file. Social History Tobacco Use Smoking status: Not on file Smokeless tobacco: Not on file Substance Use Topics Alcohol use: Not on file Drug use: Not on file FAMILY HISTORY Family History Problem Relation Name Age of Onset Other (htn) Mother Other (HTN) Father Diabetes Father Other (epilepsy) Brother Pancreatic cancer Maternal Grandfather SURGICAL HISTORY Past Surgical History: Procedure Laterality Date WISDOM TOOTH EXTRACTION REVIEW OF SYSTEMS Review of Systems: Review of Systems Constitutional: Negative. HENT: Negative. Eyes: Negative. Respiratory: Negative. Cardiovascular: Negative. Gastrointestinal: Negative. Genitourinary: Positive for pelvic pain. Musculoskeletal: Negative. Skin: Negative. Neurological: Negative. All other systems reviewed and are negative. Hematological: Negative. Endocrine: Negative. Allergic/Immunologic: Negative. OBJECTIVE Objective: Physical Exam Constitutional: Appearance: Normal appearance. She is well-developed. Cardiovascular: Rate and Rhythm: Normal rate and regular rhythm. Pulmonary: Effort: Pulmonary effort is normal. Breath sounds: Normal breath sounds. Abdominal: General: Bowel sounds are normal. There is no distension. Palpations: Abdomen is soft. Tenderness: There is no abdominal tenderness. There is no guarding or rebound. Musculoskeletal: General: No swelling. Normal range of motion. Right lower leg: No edema. Left lower leg: No edema. Neurological: Mental Status: She is alert and oriented to person, place, and time. Skin: General: Skin is warm and dry. Psychiatric: Mood and Affect: Mood normal. Behavior: Behavior normal. Vitals and nursing note reviewed. Exam conducted with a laborer heading present. Vitals: There is no height or weight on file to calculate BMI. BP: Patient's last menstrual period was 03/30/2024. ASSESSMENT & PLAN ICD-10-CM 1. Pre-op examination Z01.818 2. Pelvic pain in female R10.2 3. 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 I have discussed conservative management vs. surgical management with the patient in detail and patient desires surgical management at this time. Patient will undergo Diagnostic Laparoscopy, possible FLAKITO, possible FOE, possible BSO, possible Chromopertubation on 06/01/2024. Surgical consents were signed, mmc was reviewed, and patient is to proceed to [facility] OR. Follow Up: Patient is to follow up between 1-2 weeks post operative to assess proper healing and recovery from procedure. Documented by Karoline Casillas LPN on behalf of: Israel Broderick DO documented in this encounter [facility] 04-10-2024 History of Presen t illness Narrative Reason for Appointment: Patient ID: Chayo Rmaires is a 34 y.o. female who presents for Infertility Patient presents today for Acute Visit. MEDICATIONS Current Outpatient Medications Medication Instructions D-400 10 MCG (400 UNIT) tablet TAKE 2 TABLETS BY MOUTH ONCE DAILY FOR 30 DAYS omeprazole (PRILOSEC) 20 mg, Oral, Daily RT ALLERGIES No Known Allergies PROBLEMS Active Ambulatory Problems Diagnosis Date Noted No Active Ambulatory Problems Resolved Ambulatory Problems Diagnosis Date Noted No Resolved Ambulatory Problems No Additional Past Medical History HISTORY PAST MEDICAL HISTORY SOCIAL HISTORY History reviewed. No pertinent past medical history. Social History Tobacco Use Smoking status: Not on file Smokeless tobacco: Not on file Substance Use Topics Alcohol use: Not on file Drug use: Not on file FAMILY HISTORY Family History Problem Relation Name Age of Onset Other (htn) Mother Other (HTN) Father Diabetes Father Other (epilepsy) Brother Pancreatic cancer Maternal Grandfather SURGICAL HISTORY Past Surgical History: Procedure Laterality Date WISDOM TOOTH EXTRACTION REVIEW OF SYSTEMS Review of Systems: Review of Systems Constitutional: Negative. HENT: Negative. Eyes: Negative. Respiratory: Negative. Cardiovascular: Negative. Gastrointestinal: Negative. Genitourinary: Positive for menstrual problem and pelvic pain. Musculoskeletal: Negative. Skin: Negative. Neurological: Negative. All other systems reviewed and are negative. Hematological: Negative. Endocrine: Negative. Allergic/Immunologic: Negative. OBJECTIVE Objective: Physical Exam Constitutional: Appearance: Normal appearance. She is well-developed. Cardiovascular: Rate and Rhythm: Normal rate and regular rhythm. Pulmonary: Effort: Pulmonary effort is normal. Breath sounds: Normal breath sounds. Abdominal: General: Bowel sounds are normal. There is no distension. Palpations: Abdomen is soft. Tenderness: There is no abdominal tenderness. There is no guarding or rebound. Musculoskeletal: General: No swelling. Normal range of motion. Right lower leg: No edema. Left lower leg: No edema. Neurological: Mental Status: She is alert and oriented to person, place, and time. Skin: General: Skin is warm and dry. Psychiatric: Mood and Affect: Mood normal. Behavior: Behavior normal. Vitals and nursing note reviewed. Exam conducted with a laborer heading present. Vitals: There is no height or weight on file to calculate BMI. BP: 130/78 Patient's last menstrual period was 03/30/2024. ASSESSMENT & PLAN ICD-10-CM 1. Encounter for fertility planning Z31.89 2. PCOS (polycystic ovarian syndrome) E28.2 3. Pelvic pain in female R10.2 Patient presents today to discuss fertility. Pt having pelvic pain thinking endometriosis- discussed dx lap with isiah Arvizu, isiah chromopertubation. Pt to start metformin, rx for metformin faxed to pharmacy. Patient was given a standing lab order and ultrasound to have obtained. Patient was instructed to call the office once menstrual cycle begins so femara can be called into patients pharmacy. Patient has been instructed to take Femara on days 3-7 of cycle. On day 21 of cycle patient is to have progesterone labs drawn. Patient was advised to have intercourse on days 12, 14, 16, 18, and 20 of cycle. We will do three rounds of Femara and if patient has not conceived by then, we will perform HSG. Discussed semen analysis. Pt given semen analysis for partner. Patient has voiced understanding and will call our office for any further questions/concerns. Pt to have dx lap then return for fertility and femara. Pt to return for preop/ annual. Orders Placed This Encounter Procedures US PELVIS-TRANSVAG IF INDICATED hCG, quantitative, TSH T4, free CBC and differential Follicle stimulating hormone Luteinizing hormone Hemoglobin A1c DHEA-sulfate DHEA Antimullerian hormone (AMH) Follow Up: Preop/annual. Documented by Kita Griggs LPN on behalf of: Israel Broderick DO documented in this encounter [facility] 10-11-2022 Evaluation note Encounter Date Diagnosis Assessment [...] the onset of your symptoms of COVID [employer] Other Chief complaint+Reason for visit Narrative* Chief Complaint sinus pressure, coug h Reason for Visit Contact with and (matt spected) exposure to covid-19 Sore throat Sinusitis [facility] Work Phone: Evaluation note* Diagnosis Onset Date Resolution Status Contact with and (suspected) exposure to covid-19 acute Sore throat acute Sinusitis noneactive [facility] Work Phone: Evaluation note* Diagnosis Postoperative visit S/P laparoscopic procedure Other postprocedural status documented in this encounter [facility] HealthcareEvaluation note* Diagnosis PCOS (polycystic ovarian syndrome) Polycystic ovaries Encounter for fertility planning documented in this encounter [facility] HealthcareEvaluation note* Diagnosis Pre-op examination Pelvic pain in female Unspecified symptom associated with female genital organs Fallopian tube disorder Unspecified noninflammatory disorder of ovary, fallopian tube, and broad ligament documented in this encounter [facility] HealthcareEvaluation note* Diagnosis Encounter for fertility planning PCOS (polycystic ovarian syndrome) Polycystic ovaries Pelvic pain in female Unspecified symptom associated with female genital organs Abnormal uterine bleeding (AUB) documented in this encounter [facility] Family History Relationship Condition Age at Onset Recorded Date/T ellis father Hypertension Unknown Diabetes mellitus Unknown Not Specified Hypertension Unknown Advance Directives Advance Directive Response Recorded Date/ Time Advance Directives No November 23 12:20pm Summary Purpose Additional Source Comments REASON FOR VISIT (unrecogniz ed section and content) Reason Comments Post-op Visit Pt present today for post operative visit. Pt had a Dx lap on 06/01/2024. Reason Comments Discuss endocrin referral Reason Comments Pre-op Visit Reason Comments [facility] Care Teams (unrecognized sec tion and content) Team Status: Active Member Role Status Dates PHYSICIAN NO FAMILY Primary Care Provider Active Team Status: Inactive Member Role Status Dates PHYSICIAN NO FAMILY Primary Care Provider Active Start: November 24, 2023 End: November 24, 2023 Pinky Singh , JEM-C Attending Provider Active S tart: November 24, 2023 End: November 24, 2023 Senior Mechanical Design Engineer Relationship Specialty Start Date End Date Lima Caalsa PCP - [facility] 02/20/24 Senior Mechanical Design Engineer Relationship Specialty Start Date End Date Kromer, Judy PCP - [facility] 02/20/24 Senior Mechanical Design Engineer Relationship Specialty Start Date End Date Kromer, Judy PCP - [facility] [place] [facility] 02/20/24 Senior Mechanical Design Engineer Relationship Specialty Start Date End Date Kromer, Judy PCP - [facility] [place] [facility] 02/20/24 Senior Mechanical Design Engineer Relationship Specialty Start Date End Date Kromer, Judy PCP - [facility] [place] [facility] 02/20/24 Senior Mechanical Design Engineer Relationship Specialty Start Date End Date Kromer, Judy PCP - [facility] [place] [facility] 02/20/24 Goals (unrecognized section and content) Goals may be documented in a n alternate section INFORMATION SOURCE (unrecogn ized section and content) DATE CREATED AUTHOR 03/15/2024 [facility] DATE CREATED AUTHOR AUTHORGallo RUSSELL 07/24/2024 [facility] EPIC FOR RECORDS PERTAINING TO [...] THE PRIMARY CLINICAL RECORDS. [facility] [employer] provides no warranty or guarantee of the accuracy or completeness of information in this document.
[2024-09-18 04:07] LABS: Progesterone 22.3 ng/mL (.)
== END 2024-09-17 14:11 | disposition home or self-care (01) ==
LOC: LAB 14:11
PROVIDERS: PCP Nurse Practitioner; Visit Provider Obstetrics & Gynecology
DX: N83.9 Noninflammatory disorder of ovary, fallopian tube and broad ligament, unspecified (principal); E28.2 Polycystic ovarian syndrome
CPT/HCPCS: 36415; 84144

== ENCOUNTER 2024-10-18 12:43 | Outpatient (RCR) | payer MEDICAID, SELFPAY ==
[2024-10-19 04:07] LABS: Progesterone 13.8 ng/mL (.)
== END 2024-10-19 16:57 | disposition home or self-care (01) ==
LOC: LAB 12:43
PROVIDERS: PCP Nurse Practitioner; Visit Provider Obstetrics & Gynecology
DX: N83.9 Noninflammatory disorder of ovary, fallopian tube and broad ligament, unspecified (principal); E28.2 Polycystic ovarian syndrome
CPT/HCPCS: 36415; 84144

== ENCOUNTER 2024-11-16 13:09 | Outpatient (OUT) | payer MEDICAID, SELFPAY ==
--- OUTSIDE RECORDS SUMMARY | 2024-11-16 13:13 | XMS_ITS | CCD ---
Author Organization [facility] Care Team Providers Care Beam Press Operator Name Role Phone Pinky Singh Unavailable Judy Caal Unavailable Unavailable Unavailable Primary Care Provider Unavailabl e Services, [facility] Primary Care Provider SABIHA DELEON Referring Unavailable SERVICES, [facility] Primary Care Unava ilable TUCKER FRAIRE Attending Unavailable SABIHA DELEON Referring Unavailable SERVICES, [facility] Primary Care Unava ilable SERVICES, [facility] Primary Care Unava ilable MILLIE VILLAGRAN Attending Unavailable ISRAEL BRODERICK Attending Unavailable ISRAEL BRODERICK Attending Unavailable DAVIE, ISRAEL Attending Unavailable DAVIEISRAEL MARKS Attending Unavailable ISRAEL BRODERICK Attending Unavailable Medications Current Medications Medication Drug Class(es) Dates Sig (Normalized) Sig (Original) amoxicillin 875 mg / clavulanate 125 mg oral tablet (1 source) Penicillin-class Antibacterial Start: 11-24-2023 take 1 tablet by mouth twice daily Amoxicillin-Pot Clavulanate Active 1 TAB PO Twice daily November 24, 2023 12:00am cholecalciferol 0.01 mg oral tablet (20 sources) Vitamin D Start: 01-26-2024 cholecalciferol 10 mcg (400 unit) tablet 2 tablets (800 Units total) in the morning. 01/26/2024 Active Start: 01-26-2024 End: 05-03-2024 Cholecalciferol 10 MCG (400 UNIT) chewable tablet 1 (one) time each day at the same time 01/26/2024 05/03/2024 Discontinued (Therapy completed) take 2 tablets by [facility] once daily D-400 10 MCG (400 UNIT) tablet TAKE 2 TABLETS BY MOUTH ONCE DAILY FOR 30 DAYS Active clomiPHENE citrate 50 mg oral tablet (2 sources) Estrogen Agonist/Antagonist Start: 11-12-2024 End: 11-17-2024 take 2 tablets by mouth once daily clomiPHENE (Clomid) 50 MG tablet Indications: Encounter for fertility planning , PCOS (polycystic ovarian syndrome) , Fallopian tube disorder Take 2 tablets (100 mg) by mouth Daily for 5 days 10 tablet 11/12/2024 11/17/2024 Active fluticasone propionate 0.05 mg/actuat metered dose nasal spray (3 sources) Corticosteroid Start: 11-24-2023 End: 04-10-2024 fluticasone (Flonase) 50 MCG/ACT nasal spray Daily 11/24/2023 04/10/2024 Discontinued (Other) Start: 11-24-2023 take 1 spray(s) nasa l route once daily Fluticasone Propionate Active 2 SPRAY INTRANASAL Daily November 24, 2023 12:00am administer into each nostril 24 hr metFORMIN hydrochloride 500 mg extended release oral tablet (14 sources) Biguanide Start: 04-10-2024 End: 05-10-2024 take [...] omeprazole 20 mg delayed release oral capsule (19 sources) Proton Pump Inhibitor Start: 01-24-2024 take 1 capsule by mouth in the morning omeprazole (PriLOSEC) [address] capsule Take 20 mg by mouth in the morning. 01/24/2024 Active predniSONE 20 mg oral tablet (1 source) Start: 11-24-2023 take 20 mg by mouth twice daily Prednisone Active 20 MG PO Twice daily 10 November 24, 2023 12:00am sertraline 25 mg oral tablet (8 sources) Serotonin Reuptake Inhibitor Start: 11-06-2024 sertraline (Zoloft) 25 MG tablet 1 (one) time each day at the same time 11/06/2024 Active Start: 08-04-2023 End: 04-10-2024 take 1 tablet by mouth once daily sertraline (Zoloft) 50 MG tablet Take 50 mg by mouth Daily 08/04/2023 04/10/2024 Discontinued (Other) End: 05-03-2024 sertraline (Zoloft) 25 MG ta blet Take by mouth Daily 05/03/2024 Discontinued (Therapy completed) Problems Active Problems Problem Classification Problem Date Documented Date Episodic/Chronic Abdominal pain (3 sources) Pain in female pelvis; Translations: [Pelvic and perineal pain] 05-03-2024 Episodic Contraceptive and procreative management (6 sources) Patient encounter status; Translations: [Encounter for other procreative management] 07-23-2024 Episodic Immunizations and screening for infectious disease (3 sources) Contact with and (suspected) exposure to other viral communicable diseases; Translations: [Contact with or exposure to other viral diseases] Episodic Nonspecific chest pain (3 sources) Chest pain, unspecified; Translations: [Chest pain] Onset: 11-03-2024 Episodic Other aftercare (2 sources) Postoperative visit; Translations: [Encounter for other specified surgical aftercare] 06-11-2024 Episodic Other endocrine disorders (14 sources) Polycystic ovary syndrome; Translations: [Polycystic ovarian syndrome] Onset: 07-30-2024 07-23-2024 Chronic Other female genital disorders (2 sources) Abnormal uterine bleeding; Translations: [Abnormal uterine and vaginal bleeding, unspecified] 04-10-2024 Chronic Other female genital disorders (11 sources) Fallopian tube disorder; Translations: [Noninflammatory disorder [...] Unclassified (1 source) New Patient Onset: 03-13-2024 Urinary tract infections (3 sources) Acute cystitis without hematuria; Translations: [Acute cystitis] Onset: 11-03-2024 11-12-2024 Episodic Past or Other Problems Problem Classification Problem Date Documented Da te Episodic/Chronic Cardiac dysrhythmias (3 sources) Palpitations; Translations: [Palpitations] Onset: 03-13-2024 03-13-2024 Episodic Unclassified (2 sources) Patient encounter status 11-12-2024 Viral infection (1 source) COVID-19 Results Test Name Value Interpretation Reference Range Facility CBC AND AUTO DIFFon 11-05-19 25 ABSOLUTE BASOPHIL 0.1 X10E9/L Normal 0.0-0.2 [facility] Comment on above: Performed By: #### C BCA, CMP, 62255-7, 01408-7, THYR #### [facility] ([id number]) [address] [place] [address] 56128 ABSOLUTE NEUTROPHIL 6.9 X10E9/L High 1.5-6.6 [facility] Comment on above: Performed By: #### C BCA, CMP, 01408-4, 84778-1, THYR #### [facility] ([id number]) [address] [place] [address] 72504 Basophils/100 WBC (Bld) 1.1 % Normal [facility] Comment on above: Performed By: #### C BCA, CMP, , 10216-5, THYR #### [facility] ([id number]) [address] [place] [address] 05508 Eosinophils (Bld) [#/Vol] 0.3 10*3/uL Normal 0.0-0.4 [facility] Comment on above: Performed By: #### C BCA, CMP, 70167-5, 40092-1, THYR #### [facility] ([id number]) [address] [place] [address] 68852 Eosinophils/100 WBC (Bld) 2.3 % Normal [facility] Comment on above: Performed By: #### C BCA, CMP, 19497-9, 43003-2, THYR #### [facility] ([id number]) [address] [place] [address] 03201 Erythrocyte distribution width (RBC) [Ratio] 12.6 % Normal 11.5-15.0 [facility] Comment on above: Performed By: #### C COOPER, CMP, , 62061-1, THYR #### [facility] ([id number]) [address] [place] [address] 06963 Hematocrit (Bld) [Volume fraction] 40.4 % Normal 35-47 [facility] Comment on above: Performed By: #### C COOPER, CMP, , 58307-8, THYR #### [facility] ([id number]) [address] [place] [address] 55398 Hemoglobin (Bld) [Mass/Vol] 13.7 g/dL Normal 11.7-15.5 [facility] Comment on above: Performed By: #### Taran GAMBOA, CMP, , 00355-9, THYR #### [facility] ([id number]) [address] [place] [address] 50132 Lymphocytes (Bld) [#/Vol] 3.6 10*3/uL High 1.0-3.5 [facility] Comment on above: Performed By: #### C COOPER, CMP, , 55148-5, THYR #### [facility] ([id number]) [address] [place] [address] 48659 Lymphocytes/100 WBC (Bld) 31.6 % Normal [facility] Comment on above: Performed By: #### C BCA, CMP, , 30545-8, THYR #### [facility] ([id number]) [address] [place] [address] 88207 MCH (RBC) [Entitic mass] 30.9 pg Normal 27-34 [facility] Comment on above: Performed By: #### Taran BCA, CMP, , 83904-5, THYR #### [facility] ([id number]) [address] [place] [address] 43650 MCHC (RBC) [Mass/Vol] 34.0 g/dL Normal 32-36 [facility] Comment on above: Performed By: #### C BCA, CMP, 78682-1, 82343-1, THYR #### [facility] ([id number]) [address] [place] [address] 34158 MCV (RBC) [Entitic vol] 91 fL Normal 80-100 [facility] Comment on above: Performed By: #### C BCA, CMP, , 75813-7, THYR #### [facility] ([id number]) [address] [place] [address] 84900 Monocytes (Bld) [#/Vol] 0.6 10*3/uL Normal 0-0.9 [facility] Comment on above: Performed By: #### C BCA, CMP, , 99765-8, THYR #### [facility] ([id number]) [address] [place] [address] 94061 Monocytes/100 WBC (Bld) 5.4 % Normal [facility] Comment on above: Performed By: #### C BCA, CMP, , 43469-5, THYR #### [facility] ([id number]) [address] [place] [address] 01547 Neutrophils/100 WBC (Bld) 59.6 % Normal [facility] Comment on above: Performed By: #### C BCA, CMP, , 56239-2, THYR #### [facility] ([id number]) [address] [place] [address] 52800 Platelet mean volume (Bld) [Entitic vol] 7.9 fL Normal 7-12 [facility] Comment on above: Performed By: #### C BCA, CMP, 72676-8, 79279-8, THYR #### [facility] ([id number]) [address] [place] [address] 36580 Platelets (Bld) [#/Vol] 346 10*3/uL Normal 150-450 [facility] Comment on above: Performed By: #### C BCA, CMP, 86934-2, 41500-0, THYR #### [facility] ([id number]) [address] [place] [address] 35657 RBC COUNT 4.44 X10E12/L Normal 3.80-5.20 [facility] Comment on above: Performed By: #### C BCA, CMP, , 20486-4, THYR #### [facility] ([id number]) [address] [place] [address] 24531 WBC (Bld) [#/Vol] 11.5 10*3/uL High 4.0-11.0 [facility] Comment on above: Performed By: #### C BCA, CMP, , 53183-5, THYR #### [facility] ([id number]) [address] [place] [address] 93670 COMPREHENSIVE METABOLIC PANE Sabas 11-04-2024 Albumin [Mass/Vol] 4.0 g/dL Normal 3.2-5.3 [facility] Comment on above: Performed By: #### C BCA, CMP, 72954-4, 99880-6, THYR #### [facility] ([id number]) [address] [place] [address] 83920 ALP [Catalytic activity/Vol] 50 U/L Normal 39-130 [facility] Comment on above: Performed By: #### C BCA, CMP, 97438-4, 00586-6, THYR #### [facility] ([id number]) [address] [place] [address] ALT [Catalytic activity/Vol] 19 U/L Normal 0-31 [facility] Comment on above: Performed By: #### C BCA, CMP, 30686-6, 37681-2, THYR #### [facility] ([id number]) [address] [place] [address] 58560 Anion gap [Moles/Vol] 11 mmol/L Normal 5-15 [facility] Comment on above: Performed By: #### C BCA, CMP, 52597-0, 35304-9, THYR #### [facility] ([id number]) [address] [place] [address] 40999 AST [Catalytic activity/Vol] 18 U/L Normal 0-41 [facility] Comment on above: Performed By: #### C BCA, CMP, 42157-2, 04967-5, THYR #### [facility] ([id number]) [address] [place] [address] [place] [address] Bilirubin [Mass/Vol] 0.4 mg/dL Normal 0.3-1.2 [facility] Comment on above: Performed By: #### C BCA, CMP, 10065-1, 49127-6, THYR #### [facility] ([id number]) [address] [place] [address] 88871 Calcium [Mass/Vol] 9.4 mg/dL Normal 8.5-10.5 [facility] Comment on above: Performed By: #### C BCA, CMP, 09090-6, 02593-1, THYR #### [facility] ([id number]) [address] [place] [address] 16903 Chloride [Moles/Vol] 106 mmol/L Normal 98-109 [facility] Comment on above: Performed By: #### C BCA, CMP, 26935-3, 23829-0, THYR #### [facility] ([id number]) [address] [place] [address] [place] [address] CO2 [Moles/Vol] 23 mmol/L Normal 22-32 [facility] Comment on above: Performed By: #### C BCA, CMP, 47984-0, 68869-1, THYR #### [facility] ([id number]) [address] [place] [address] 94473 Creatinine [Mass/Vol] 0.76 mg/dL Normal 0.40-1.00 [facility] Comment on above: Result Comment: METH OD TRACEABLE TO IDMS STANDARD Performed By: #### C COOPER, CMP, 38162-9, 72211-5, THYR #### [facility] ([id number]) [address] [place] [address] 24951 eGFR (CKD-EPI) NON-RACE DEPENDENT >90 Normal >59 [facility] Comment on above: Result Comment: Reported eGFR is based on the CKD-EPI 2020 equation that does not use a race coefficient. Performed By: #### C BCA, CMP, , 52866-4, THYR #### [facility] ([id number]) [address] [place] [address] 40552 Glucose [Mass/Vol] 114 mg/dL High 65-99 [facility] Comment on above: Performed By: #### C BCA, CMP, , 75763-1, THYR #### [facility] ([id number]) [address] [place] [address] 27766 Potassium [Moles/Vol] 4.1 mmol/L Normal 3.5-5.0 [facility] Comment on above: Performed By: #### C BCA, CMP, 75203-9, 88960-2, THYR #### [facility] ([id number]) [address] [place] [address] 44355 Protein [Mass/Vol] 7.3 g/dL Normal 6.0-8.0 [facility] Comment on above: Performed By: #### C COOPER, CMP, 38316-7, 96511-4, THYR #### [facility] ([id number]) [address] [place] [address] 36191 Sodium [Moles/Vol] 140 mmol/L Normal 134-146 [facility] Comment on above: Performed By: #### C COOPER, CMP, 03197-4, 70050-0, THYR #### [facility] ([id number]) [address] [place] [address] 60937 Urea nitrogen [Mass/Vol] 13 mg/dL Normal 5-23 [facility] Comment on above: Performed By: #### C COOPER, LUKAS, 50551-3, 62630-9, THYR #### [facility] ([id number]) [address] [place] [address] 72759 Fibrin D-dimer DDU (PPP) [Ma ss/Vol]on 11-04-2024 D DIMER <150 Normal <255 [facility] Comment on above: Result Comment: Results <255 ng/mL DDU: The presence of a VTE can safely be excluded with a negative D-Dimer result and Wells score. A negative result doesn't exclude the possibility of DIC. The test be repeated along with other diagnostic tests if the patient's symptoms persist or worsen. [email or web address] Performed By: #### C BCA, CMP, 43934-8, 68447-6, THYR #### [facility] ([id number]) [address] [place] [address] 70510 HCG ( test) Ql (U)o n 11-04-2024 Beta HCG ( test) Ql (U) Negative Normal NEG [facility] Comment on above: Performed By: #### 2 106-3 #### [facility] ([id number]) [address] [place] [address] 46173 MAGNESIUMon 11-04-2024 Magnesium [Mass/Vol] 2.3 mg/dL Normal 1.8-2.6 [facility] Comment on above: Performed By: #### C LUKAS GAMBOA, 06676-6, 56451-3, THYR #### [facility] ([id number]) [address] [place] [address] 85698 THYROID PROFILEon 11-04-2024 Free T4 [Mass/Vol] 0.88 ng/dL Normal 0.61-1.60 [facility] Comment on above: Performed By: #### C LUKAS GAMBOA, , 35048-7, THYR #### [facility] ([id number]) [address] [place] [address] 68207 TSH 1.78 uIU/mL Normal 0.49-4.67 [facility] Comment on above: Performed By: #### C [facility]OPER [facility], , 27015-9, THYR #### [facility] ([id number]) [address] [place] [address], [place] [address] URN MACROSCOPIC NURon 2024 BILIRUBIN LEIDA Negative Normal NEG [facility] Comment on above: Performed By: #### N UM #### [facility] ([id number]) [address] [place] [address] [place] [address] BLOOD/HGB LEIDA Trace Abnormal NEG [facility] Comment on above: Performed By: #### N UM #### [facility] ([id number]) [address] [place] [address] [place] [address] GLUCOSE LEIDA Negative Normal NEG [facility] Comment on above: Performed By: #### N UM #### [facility] ([id number]) [address] [place] [address] [place] [address] KETONES LEIDA Negative Normal NEG [facility] Comment on above: Performed By: #### N UM #### [facility] ([id number]) [address] [place] [address] 52316 LEUKOCYTE ESTERASE LEIDA Small Abnormal NEG [facility] Comment on above: Performed By: #### N UM #### [facility] ([id number]) [address] [place] [address] 22503 NITRITE LEIDA Negative Normal NEG [facility] Comment on above: Performed By: #### N UM #### [facility] ([id number]) [address] [place] [address] 91805 PH LEIDA 6.0 Normal 5.0-8.5 [facility] Comment on above: Performed By: #### N UM #### [facility] ([id number]) [address] [place] [address] 06075 PROTEIN LEIDA Negative Normal NEG [facility] Comment on above: Performed By: #### N UM #### [facility] ([id number]) [address] [place] [address] 66745 SPECIFIC GRAVITY LEIDA 1.025 Normal 1.003-1.035 [facility] Comment on above: Performed By: #### N UM #### [facility] ([id number]) [address] [place] [address] 20063 UROBILINOGEN LEIDA 0.2 eu/dL Normal <1.1 [facility] Comment on above: Performed By: #### N UM #### [facility] ([id number]) [address] [place] [address] 03360 XR CHEST 1 VWon 11-04-2024 XR CHEST 1 VW XR CHEST 1 VW History: Palpitations Exam/Technique: Portable upright AP chest Comparison: 11/12/2022 Findings: There is no active pulmonary or pleural disease displayed. Cardiac and mediastinal contours appear within normal limits on this AP projection. IMPRESSION: No evidence of active pulmonary disease. 227 Finalized by Tres Giron MD on 11/04/2024 1:02 AM [facility] ALL PROGESTERONEon 5 PROGESTERONE 13.8 ng/mL . [facility] are Comment on above: Follicular phase 0.1 - 0.9 Luteal phase 1.8 - 23.9 Ovulation phase 0.1 - 12.0 First trimester 11.0 - 44.3 Second trimester 25.4 - 83.3 Third trimester 58.7 - 214.0 Postmenopausal 0.0 - 0.1 Performed at: [employer] [id number] Chief Lock Operator: Yobany Blount PhD, Phone: [phone] e ALL PROGESTERONEon 5 PROGESTERONE 22.3 ng/mL . [facility] are Comment on above: Follicular phase 0.1 - 0.9 Luteal phase 1.8 - 23.9 Ovulation phase 0.1 - 12.0 First trimester 11.0 - 44.3 Second trimester 25.4 - 83.3 Third trimester 58.7 - 214.0 Postmenopausal 0.0 - 0.1 Performed at: [address] [id number] Chief Lock Operator: Yobany Blount PhD, Phone: [facility] [employer] ALL PROGESTERONEon 4 PROGESTERONE 8.5 ng/mL . [facility] are Comment on above: Follicular phase 0.1 - 0.9 Luteal phase 1.8 - 23.9 Ovulation phase 0.1 - 12.0 First trimester 11.0 - 44.3 Second trimester 25.4 - 83.3 Third trimester 58.7 - 214.0 Postmenopausal 0.0 - 0.1 Performed at: [facility] [address] [id number] Chief Lock Operator: Yobany Blount PhD, Phone: [phone] [facility] ALL PROGESTERONEon 4 PROGESTERONE 16.8 ng/mL . [facility] are Comment on above: Follicular phase 0.1 - 0.9 Luteal phase 1.8 - 23.9 Ovulation phase 0.1 - 12.0 First trimester 11.0 - 44.3 Second trimester 25.4 - 83.3 Third trimester 58.7 - 214.0 Postmenopausal 0.0 - 0.1 Performed at: [facility] [employer] [id number] Chief Lock Operator: Yobany Blount PhD, Phone: [phone] [facility] ALL CBC WITH AUTO DIFFon BASOPHILS ABSOLUTE AUTO 0.1 [facility] Basophils/100 WBC (Bld) 0.6 % 0.2 - 2.0 % [facility] Eosinophils/100 WBC (Bld) 2.8 % 0.9 - 7.0 % [facility] Erythrocyte distribution width (RBC) [Ratio] 12.1 % 11.0 - 15.0 % [facility] Hematocrit (Bld) [Volume fraction] 40.6 % 36.0 - 48.0 % [facility] Hemoglobin (Bld) [Mass/Vol] 13.5 g/dL 12.0 - 16.0 g/dL [facility] IMMATURE GRANULOCYTES ABS AUTO 0.02 [facility] Immature granulocytes/100 WBC (Bld) 0.3 % 0.0 - 0.5 % [facility] LYMPHOCYTES ABSOLUTE AUTO 1.8 [facility] Lymphocytes/100 WBC (Bld) 23.0 % 20.5 - 60.0 % [facility] MCH (RBC) [Entitic mass] 30.6 pg 26.7 - 34.0 pg [facility] MCHC (RBC) [Mass/Vol] 33.3 g/dL 29.9 - 35.2 g/dL [facility] MCV (RBC) [Entitic vol] 92.1 fL 81.0 - 99.0 fL [facility] MONOCYTES ABSOLUTE AUTO 0.5 N [facility] Monocytes/100 WBC (Bld) 6.6 % 1.7 - 12.0 % [facility] NEUTROPHILS ABSOLUTE AUTO 5.3 [facility] Neutrophils/100 WBC (Bld) 66.7 % 43.0 - 75.0 % [facility] Platelet mean volume (Bld) [Entitic vol] 9.8 fL 9.5 - 13.5 fL [facility] EO # 0.2 [facility] PLT 284 [facility] RBC 4.41 [facility] WBC 8.0 [facility] ALL CBC WITH AUTO DIFFon BASOPHILS ABSOLUTE AUTO 0.1 N [facility] Basophils/100 WBC (Bld) 0.5 % 0.2 - 2.0 % [facility] Eosinophils/100 WBC (Bld) 2.8 % 0.9 - 7.0 % [facility] Erythrocyte distribution width (RBC) [Ratio] 12.0 % 11.0 - 15.0 % [facility] Hematocrit (Bld) [Volume fraction] 39.7 % 36.0 - 48.0 % [facility] Hemoglobin (Bld) [Mass/Vol] 13.4 g/dL 12.0 - 16.0 g/dL [facility] IMMATURE GRANULOCYTES ABS AUTO 0.03 [facility] Immature granulocytes/100 WBC (Bld) 0.3 % 0.0 - 0.5 % [facility] Interpretation and review of laboratory results Abnormal [facility] LYMPHOCYTES ABSOLUTE AUTO 2.9 [facility] Lymphocytes/100 WBC (Bld) 24.4 % 20.5 - 60.0 % [facility] MCH (RBC) [Entitic mass] 30.7 pg 26.7 - 34.0 pg [facility] MCHC (RBC) [Mass/Vol] 33.8 g/dL 29.9 - 35.2 g/dL [facility] MCV (RBC) [Entitic vol] 91.1 fL 81.0 - 99.0 fL [facility] MONOCYTES ABSOLUTE AUTO 0.6 N [facility] Monocytes/100 WBC (Bld) 5.2 % 1.7 - 12.0 % [facility] NEUTROPHILS ABSOLUTE AUTO 8.0 High [facility] Neutrophils/100 WBC (Bld) 66.8 % 43.0 - 75.0 % [facility] Platelet mean volume (Bld) [Entitic vol] 10.1 fL 9.5 - 13.5 fL [facility] EO # 0.3 [facility] PLT 303 [facility] RBC 4.36 [facility] WBC 12.0 High [facility] POCT EKGOrdered By: Sheyla Powell on 03-13-2024 [facility] No Panel InformationOrdered By: Pikny Singh on 11-24-2023 Quick Strep (POC) [facility] Cytology Cervical or vaginal smear or scraping studyon 11-19-2022 [facility] COVID/FLU/RSV RT-PCRon 10-11 SARS-CoV-2 (COVID-19) RNA PEACE+probe Ql (Unsp spec) Positive [facility] Other COVID/FLU/RSV RT-PCR Negative [facility] Other Vital Signs Date Time Vital Sign Value Performing Clinician Facility 11-12-2024 14:03-0400 Diastolic blood pressure 86 mm[Hg] Israel Davie DO Work Phone: [facility] 11-12-2024 14:03-0400 Systolic blood pressure 120 mm[Hg] Israel Davie DO Work Phone: [facility] 07-23-2024 13:12-0500 Body mass index (BMI) [Ratio] 40.01 kg/m2 Israel Davie DO Work Phone: [facility] 07-23-2024 13:12-0500 Body weight 119.35 kg Israel Davie DO Work Phone: [facility] 07-23-2024 13:12-0500 Diastolic blood pressure 78 mm[Hg] Israel Davie DO Work Phone: [facility] 07-23-2024 13:12-0500 Systolic blood pressure 130 mm[Hg] Israel Davie DO Work Phone: [facility] 06-11-2024 14:39-0400 Body height 172.7 cm Israel Davie DO [facility] [facility] 06-11-2024 14:39-0400 Body mass index (BMI) [Ratio] 39.53 kg/m2 Israel Davie DO Work Phone: [facility] 06-11-2024 14:39-0400 Body weight 117.94 kg Israel Davie DO Work Phone: [facility] 06-11-2024 14:39-0400 Diastolic blood pressure 76 mm[Hg] Israel Davie DO Work Phone: [facility] 06-11-2024 14:39-0400 Systolic blood pressure 128 mm[Hg] Israel Davie DO Work Phone: [facility] 05-03-2024 11:39-0400 Body weight 118.84 kg Israel Davie DO Work Phone: [facility] 05-03-2024 11:39-0400 Diastolic blood pressure 78 mm[Hg] Israel Davie DO Work Phone: [facility] 05-03-2024 11:39-0400 Systolic blood pressure 130 mm[Hg] Israel Davie DO Work Phone: [facility] 04-10-2024 09:36-0400 Body weight 120.57 kg Israel Davie DO Work Phone: [facility] 04-10-2024 09:36-0400 Diastolic blood pressure 78 mm[Hg] Israel Davie DO Work Phone: [facility] 04-10-2024 09:36-0400 Systolic blood pressure 130 mm[Hg] Israel Davie DO Work Phone: [facility] 03-13-2024 10:50-0400 Body height 172.7 cm Tucker Fraire MD Work Phone: [facility] 03-13-2024 10:50-0400 Body mass index (BMI) [Ratio] 40.66 kg/m2 Tucker Fraire MD Work Phone: [facility] 03-13-2024 10:50-0400 Body weight 121.29 kg Tucker Fraire MD Work Phone: [facility] 03-13-2024 10:50-0400 Diastolic blood pressure 94 mm[Hg] Tucker Fraire MD Work Phone: [facility] 03-13-2024 10:50-0400 Heart rate 83 /min Tucker Fraire MD Work Phone: [facility] 03-13-2024 10:50-0400 SaO2% (BldA) [Mass fraction] 98 % Tucker Fraire MD Work Phone: [facility] 03-13-2024 10:50-0400 Systolic blood pressure 136 mm[Hg] Tucker Fraire MD Work Phone: [facility] 11-24-2023 12:26-0400 Body height 172.72 cm [facility] 11-24-2023 12:26-0400 Body mass index (BMI) [Ratio] 42.6 kg/m2 [facility] 11-24-2023 12:26-0400 Body temperature 97.3 [degF] [facility] 11-24-2023 12:26-0400 Body weight 127.11 kg [facility] 11-24-2023 12:26-0400 Diastolic blood pressure 84 mm[Hg] [facility] 11-24-2023 12:26-0400 Heart rate 75 /min [facility] 11-24-2023 12:26-0400 Respiratory rate 18 /min [facility] 11-24-2023 12:26-0400 SaO2% (BldA) [Mass fraction] 98 % [facility] 11-24-2023 12:26-0400 Systolic blood pressure 130 mm[Hg] [facility] 10-11-2022 11:35-0500 Body height 172.72 cm Pinky Singh Other [employer] [facility] [employer] Other 10-11-2022 11:35-0500 Body mass index (BMI) [Ratio] 42.27 kg/m2 Pinky Singh Other [employer] Other 10-11-2022 11:35-0500 Body temperature 97.8 [degF] Pinky Singh Other [employer] Other 10-11-2022 11:35-0500 Body weight 126.1 kg Pinky Singh Other [employer] Other 10-11-2022 11:35-0500 Respiratory rate 18 /min Pinky Singh Other [employer] Other 10-11-2022 11:35-0500 SaO2% (BldA) [Mass fraction] 98 % Pinky Singh Other [employer] Other Encounters Encounter Date Encounter Type Care Provider Facility Start: 11-12-2024 End: 11-12-2024 Office outpatient visit 15 minutes Israel Davie DO Work Phone: [facility] Comment on above: Encounter for fertil ity planning; Acute cystitis without hematuria; PCOS (polycystic ovarian syndrome); Fallopian tube disorder Start: 11-12-2024 End: 11-12-2024 Bamboo flowsheet Israel Davie DO Work Phone: [facility] Start: 11-12-2024 End: 11-12-2024 Bamboo flowsheet Israel Davie DO Work Phone: [facility] Start: 11-12-2024 End: 11-12-2024 ambulatory ISRAEL DAVIE Not Available Start: 11-03-2024 End: 11-04-2024 Emergency department patient visit [facility] Start: 10-18-2024 End: 10-19-2024 Clinisync Result Encounter Israel Davie DO Work Phone: [facility] Unsolicited Start: 10-18-2024 End: 10-19-2024 Clinisync Result Encounter Israel Davie DO Work Phone: [facility] Unsolicited Start: 09-17-2024 End: 09-18-2024 Clinisync Result Encounter Israel Davie DO Work Phone: [facility] Unsolicited Start: 09-17-2024 End: 09-18-2024 Clinisync Result Encounter Israel Davie DO Work [...] Work Phone: [facility] Unsolicited Start: 07-18-2024 End: 07-19-2024 Clinisync Result Encounter Israel Davie DO Work Phone: [facility] Unsolicited Start: 06-11-2024 End: 06-11-2024 Postop follow up visit related to original px Israel Davie DO Work Phone: [facility] Comment on above: Postoperative visit; S/P laparoscopic procedure Start: 06-11-2024 End: 06-11-2024 Bamboo flowsheet Israel Davie DO Work Phone: [facility] Start: 06-11-2024 End: 06-11-2024 Bamboo flowsheet Israel Davie DO Work Phone: [facility] Start: 06-11-2024 End: 06-11-2024 ambulatory ISRAEL DAVIE Not Available Start: 06-01-2024 End: 06-01-2024 Clinisync Result Encounter Israel Davie DO Work Phone: [facility] Unsolicited Start: 06-01-2024 End: 06-01-2024 Clinisync Result Encounter Israel Davie DO Work Phone: [facility] Unsolicited Start: 05-03-2024 End: 05-03-2024 Office outpatient visit 15 minutes Israel Davie DO Work Phone: [facility] Comment on above: Pre-op examination; Pelvic pain in female; Fallopian tube disorder Start: 05-03-2024 End: 05-03-2024 Preprocedural examination done Israel Davie DO Work Phone: [facility] Start: 05-03-2024 End: 05-03-2024 ambulatory ISRAEL DAVIE Not Available Start: 04-24-2024 End: 04-24-2024 Clinisync Result Encounter Israel Davie DO Work Phone: [facility] Unsolicited Start: 04-24-2024 End: 04-24-2024 Clinisync Result Encounter Israel Davie DO Work Phone: [facility] Unsolicited Start: 04-10-2024 End: 04-10-2024 Bamboo flowsheet Israel Davie DO Work Phone: [facility] Start: 04-10-2024 End: 04-10-2024 Bamboo flowsheet Israel Davie DO Work Phone: [facility] Start: 04-10-2024 End: 04-10-2024 Office outpatient visit 15 minutes Israel Davie DO Work Phone: [facility] Comment on above: Encounter for fertil ity planning; PCOS (polycystic ovarian syndrome); Pelvic pain in female; Abnormal uterine bleeding (AUB) Start: 04-10-2024 End: 04-10-2024 ambulatory ISRAEL DAVIE Not Available Start: 03-13-2024 End: 03-13-2024 Office outpatient visit 15 minutes Tucker Fraire MD Work Phone: [facility] Comment on above: Heart palpitations ( Primary Dx) Start: 03-13-2024 End: 03-13-[address] [facility] Start: 03-12-2024 End: 03-12-2024 Telephone encounter Sheyla Powell [facility] Start: 02-22-2024 End: 02-22-2024 Chart abstracting Scanning Provider External [facility] Start: 02-06-2024 End: 02-06-2024 ambulatory [facility] Start: 11-24-2023 End: 11-24-2023 ambulatory [facility] Work Phone: Start: 11-24-2023 End: 11-24-2023 Patient encounter procedure [facility] Work Phone: Start: 10-11-2022 End: 10-11-2022 ambulatory Pinky Singh Other [employer] Other Start: 10-11-2022 Office outpatient ne w 20 minutes Pinky Singh [facility] Procedures Date Procedure Procedure Detail Performing Clinician Start: 10-18-2024 ALL PROGESTERONE Israel Davie DO Work Phone: Start: 09-17-2024 ALL PROGESTERONE Israel Davie DO Work Phone: Start: 08-16-2024 ALL PROGESTERONE Israel Davie DO Work Phone: Start: 07-18-2024 ALL PROGESTERONE Israel Davie DO Work Phone: Start: 06-01-2024 ALL CBC WITH AUTO DIFF Israel Davie DO Work Phone: Start: 04-24-2024 ALL CBC WITH AUTO DIFF Israel Davie DO Work Phone: Start: 03-13-2024 Ecg routine ecg w/le ast 12 lds w/i&r Tucker Fraire MD Work Phone: Start: 11-24-2023 Quick Strep (POC) Start: 11-23-2022 Microscopic observat ion [Identifier] in Cervix by Cyto stain Scanning External Start: 11-19-2022 Microscopic observat ion [Identifier] in Cervix by Cyto stain Israel Broderick DO Work Phone: Start: 11-19-2022 Cytp cerv/vag auto t hin layer prep mnl screen Bethany Zackary [employer] Work Phone: Plan of Treatment Date Care Activity Detail Author Start: 11-24-2027 Screening for malign ant neoplasm of cervix [facility] Start: 11-23-2025 Screening for malign ant neoplasm of cervix Pap Smear [facility] Start: 11-19-2025 Screening for malign ant neoplasm of cervix Pap Smear [facility] Start: 03-13-2025 Adult BMI Screening Adult BMI Screen ing [facility] Start: 03-13-2025 Tobacco Screening Tobacco Screening [facility] Start: 12-10-2024 End: 12-10-2024 Patient encounter procedure 12/10/2024 2:40 PM EDT Office Visit [facility] [address] [place] [phone] Israel Broderick, DO [address] [place] [address] [facility] Start: 11-12-2024 End: 11-12-2024 Patient encounter procedure [facility] Comment on above: Arrived Start: 07-23-2024 End: 07-23-2024 Patient encounter procedure 07/23/2024 1:00 PM EST Office Visit [facility] [address] [place] [phone] Israel Broderick, DO [address] [place], [place] [id number] [facility] Start: 06-11-2024 End: 06-11-2024 Patient encounter procedure 06/11/2024 2:20 PM EDT Office Visit [facility] [address] [place] [phone] Israel Broderick, DO [address] [place] [address] [facility]rived [facility] Comment on above: Arrived Start: 06-01-2024 End: 06-01-2024 Patient encounter procedure 06/01/2024 8:30 AM EDT Procedure Visit [facility] Israel Broderick, DO [address] [place] [address] [facility] Start: 05-03-2024 End: 05-03-2024 Patient encounter procedure 05/03/2024 11:40 AM EDT Consult [facility] [address] [place] [phone] Israel Broderick, DO [address] [place] [address] [facility] Start: 04-22-2024 Influenza vaccination [facility] Start: 04-10-2024 End: 04-10-2025 Antimullerian hormone (AMH) Antimullerian hormone (AMH) Lab Routine PCOS (polycystic ovarian syndrome) Expected: 04/10/2024 (Approximate), Expires: 04/10/2025 [facility] Comment on above: Expected: 04/10/2024 (Approximate), Expires: 04/10/2025 Start: 04-10-2024 End: 04-10-2025 DHEA DHEA Lab Routine PCOS (polycystic ovarian syndrome) Expected: 04/10/2024 (Approximate), Expires: 04/10/2025 [facility] Comment on above: Expected: 04/10/2024 (Approximate), Expires: 04/10/2025 Start: 04-10-2024 End: 04-10-2025 US for US PELVIS-TRANSVAG IF INDICATED Imaging Routine PCOS (polycystic ovarian syndrome) Pelvic pain in female Expected: 04/10/2024 (Approximate), Expires: 04/10/2025 [facility] Comment on above: Expected: 04/10/2024 (Approximate), Expires: 04/10/2025 Start: 04-10-2024 End: 04-10-2024 Patient encounter procedure 04/10/2024 9:10 AM EDT Office Visit [facility] [address] [place] [address] Israel Broderick DO [address] [place] [address] Arrived [facility] Comment on above: Arrived Start: 03-13-2024 End: 03-13-2024 Patient encounter procedure 03/13/2024 11:00 AM EDT Office Visit [facility] [address] [place] [address] Tucker Fraire MD [address] [place] [facility] [place] [address] [facility] Start: 01-21-2024 Adult BMI Screening Adult BMI Screen ing [facility] Start: 01-21-2024 Tobacco Screening Tobacco Screening [facility] Start: 2011 DTaP,Tdap and Td Vaccines (1 - Tdap) DTaP,Tdap and Td Vaccines (1 - Tdap) [facility] Start: 2010 Adult BMI Follow Up Plan Adult BMI Follow Up Plan [facility] Start: 2004 Depression Screening Depression Scre ening [facility] CBC W Auto Different ial panel - Blood CBC and differential Lab Routine PCOS (polycystic ovarian syndrome) Ordered: 04/10/2024 [facility] Comment on above: Ordered: 04/10/2024 DHEA-sulfate DHEA-sulfate Lab Routine PCOS (polycystic ovarian syndrome) Ordered: 04/10/2024 [facility] Comment on above: Ordered: 04/10/2024 Follicle stimulating hormone Follicle stimulating hormone Lab Routine PCOS (polycystic ovarian syndrome) Ordered: 04/10/2024 [facility] Comment on above: Ordered: 04/10/2024 hCG, quantitative, hCG, quantitative, Lab Routine PCOS (polycystic ovarian syndrome) Ordered: 04/10/2024 [facility] [employer] Work Phone: Comment on above: Ordered: 04/10/2024 Hemoglobin A1c/Hemoglobin.total in Blood Hemoglobin A1c Lab Routine Pelvic pain in female Abnormal uterine bleeding (AUB) Ordered: 04/10/2024 [facility] Comment on above: Ordered: 04/10/2024 Luteinizing hormone Luteinizing hormone Lab Routine PCOS (polycystic ovarian syndrome) Ordered: 04/10/2024 [facility] Comment on above: Ordered: 04/10/2024 Thyrotropin [Units/volume] in Serum or Plasma TSH Lab Routine PCOS (polycystic ovarian syndrome) Ordered: 04/10/2024 [facility] Comment on above: Ordered: 04/10/2024 Thyroxine (T4) free [Mass/volume] in Serum or Plasma T4, free Lab Routine PCOS (polycystic ovarian syndrome) Ordered: 04/10/2024 [facility] [employer] Comment on above: Ordered: 04/10/2024 Payers Date Payer Category Payer Medicaid [id number] 2022 Medicaid [id number] 2. [id number] 1990 Unknown [id number] [id number]. [id number] 1990 Unknown [id number] 2.16.8 [id number] 1990 Unknown [id number] 2.16.8 [id number] 1990 Unknown [id number] 2.16.84 [id number] 1992 Unknown [id number] 2.16.84 [id number] 1992 Unknown [id number] 2.16.84 [id number] 1990 Unknown [id number] 2.16.84 [id number] 1990 Unknown [id number] [id number] Social History Date Type Detail Facility Start: 02-22-2024 End: 03-13-2024 Sex Assigned At [facility] Other Start: 1990 Sex Assigned At Female F [facility] Tobacco smoking status [facility] Tobacco smoking consumption unknown [facility] Start: 1990 Sex assigned at Not on file P [facility] Start: 10-09-2022 Tobacco smoking status [facility] Never smoked tobacco [facility] Start: 10-09-2022 Tobacco use and exposure Smokeless tobacco non-user [facility] Start: 02-22-2024 End: 03-13-2024 Alcoholic beverage intake Ex-drinker (finding) [facility] Start: 02-22-2024 End: 03-13-2024 History of Social function [facility] Within the past 12 months we worried whether our food would run out before we got money to buy more. Never True [facility] Clinical Notes 10-11-2022 to 11-12-2024 Karoline Casillas LPN - 11/12/2024 2:10 PM Levi Griggs LPN - 07/23/2024 1:00 PM Katie Casillas RN [facility] - 06/11/2024 2:20 PM Ana Laura Painting - 05/03/2024 11:40 AM EDT Note Date & Type Note Facility 11-12-2024 History of Presen t illness Narrative Reason for Appointment: Patient ID: Chayo Ramires is a 34 y.o. female who presents for Follow-up Patient presents today for Consult appointment. MEDICATIONS Current Outpatient Medications Medication Instructions D-400 10 MCG (400 UNIT) tablet TAKE 2 TABLETS BY MOUTH ONCE DAILY FOR 30 DAYS metFORMIN XR (GLUCOPHAGE-XR) 500 mg, Oral, Daily with evening meal, Do not crush, chew, or split. omeprazole (PRILOSEC) 20 mg, Oral, Daily RT sertraline (Zoloft) 25 MG tablet Every 24 hours ALLERGIES No Known Allergies PROBLEMS Active Ambulatory Problems Diagnosis Date Noted Fallopian tube disorder 07/30/2024 PCOS (polycystic ovarian syndrome) 07/30/2024 Resolved Ambulatory Problems Diagnosis Date Noted No [...] SYSTEMS Review of Systems: Review of Systems OBJECTIVE Objective: OBGyn Exam Vitals: Estimated body mass index is 40.01 kg/m as calculated from the following: Height as of 06/11/24: 5' 8 . Weight as of 07/23/24: 263 lb 1.9 oz. BP: 120/86 No LMP recorded. ASSESSMENT & PLAN ICD-10-CM 1. Encounter for fertility planning Z31.89 2. Acute cystitis without hematuria N30.00 Patient presents today to discuss fertility medication. Patient does not have a referral appointment with Dr. Cisse until December. Patient will switch to Clomid with next cycle if she does not conceive with this last round of Femara. Patient will start out at 100mg of Clomid. Patient to return to clinic in 4 weeks for annual. Documented by Karoline Casillas LPN on behalf of: Israel Broderick DO documented in this encounter [facility] 07-23-2024 History of Presen t illness Narrative [...] nursing note reviewed. Exam conducted with a bridge painter helper present. Vitals: Estimated body mass index is [...] Israel Broderick DO documented in this encounter [facility] 06-11-2024 History of Presen t illness Narrative [...] nursing note reviewed. Exam conducted with a bridge painter helper present. Vitals: Estimated body mass index is [...] Israel Broderick DO documented in this encounter [facility] 05-03-2024 History of Presen t illness Narrative Reason for Appointment: Patient ID: Chayo Ramires is a 34 y.o. female who presents for Pre-op Visit Patient presents today for Pre Op appointment. Patient is scheduled to undergo Diagnostic Laparoscopy, possible FLAKITO, possible FOE, possible BSO, possible Chromopertubation on 06/01/[address] Broderick at [facility]. MEDICATIONS Current Outpatient Medications Medication Instructions D-400 [...] nursing note reviewed. Exam conducted with a bridge painter helper present. Vitals: There is no height or [...] reviewed, and patient is to proceed to [facility] OR. Follow Up: Patient is to follow up between 1-2 weeks post operative to assess proper healing and recovery from procedure. Documented by Karoline Casillas LPN on behalf of: Israel Broderick DO documented in this encounter [facility] 04-10-2024 History of Presen t illness Narrative [...] nursing note reviewed. Exam conducted with a bridge painter helper present. Vitals: There is no height or weight on file to calculate BMI. BP: 130/78 Patient's last menstrual period was 03/30/2024. ASSESSMENT & PLAN ICD-10-CM 1. Encounter for fertility planning Z31.89 2. PCOS (polycystic ovarian syndrome) E28.2 3. Pelvic pain in female R10.2 Patient presents today to discuss fertility. Pt having pelvic pain thinking endometriosis- discussed dx lap with isiah Arvizu poss chromopertubation. Pt to start metformin, rx for [...] Israel Broderick DO documented in this encounter [facility] 03-13-2024 History of Presen t illness Narrative Chayo Ramires Date of visit: 03/13/2024 Date of : 1990 Age: 33 y.o. There is no problem list on file for this patient. No Known Allergies Current Outpatient Medications Medication Sig Dispense Refill cholecalciferol 10 mcg (400 unit) tablet 2 tablets (800 Units total) in the morning. omeprazole (PriLOSEC) 20 mg capsule Take 1 capsule (20 mg total) by mouth in the morning. sertraline (ZOLOFT) 25 mg tablet Take by mouth daily. (Patient not taking: Reported on 03/13/2024) No current facility-administered medications for this visit. Chief Complaint Patient presents with New Patient DIVISION CHAIR PALPITATIONS SCHED W/ PT LABS HM AT [facility]S AT PCP History of Present Illness Patient had episode of palpitations related to which sounds like more of a phonetic. Of events where she was traveling and was under a bit of stress. She had no real chest pain no decline in function actually she is done really well she is started to exercise over the past month in his lost 14 or so lb she feels better she has no further palpitations . She had a monitor but by the time she had the monitor she was not having very many symptoms a monitor was benign she only had 3 PVCs during the entire monitoring. It when she did have symptoms she would sinus rhythm documented on the monitor Past Medical History: Diagnosis Date Anxiety Depression No data recorded No data recorded No data recorded Past Surgical History: Procedure Laterality Date WISDOM TOOTH EXTRACTION Family History Problem Relation Age of Onset Hypertension Mother Diabetes Father Hypertension Father Cancer Maternal Grandfather Hypertension Paternal Grandfather Heart disease Paternal Grandfather Social History Socioeconomic History Marital status: Spouse name: Not on file Number of children: Not on file Years of education: Not on file Highest education level: Not on file Occupational History Not on file Tobacco Use Smoking status: Never Smokeless tobacco: Never Vaping Use Vaping status: Never Used Substance and Sexual Activity Alcohol use: Not Currently Drug use: Never Sexual activity: Not on file Other Topics Concern Caffeine Use No Social History Narrative Not on file Social Determinants of Health Financial Resource Strain: Not on file Food Insecurity: No Food Insecurity (03/13/2024) Hunger Screening Food Insecurity - Worry: Never True Food Insecurity - Inability: Never True Transportation Needs: Not on file Physical Activity: Not on file Stress: Not on file Social Connections: Not on file Interpersonal Safety: Not on file Housing Instability: Not on file Review of Systems Review of Systems Constitutional: Negative. HENT: Negative. Eyes: Negative. Cardiovascular: Negative. Respiratory: Negative. Endocrine: Negative. Hematologic/Lymphatic: Negative. Skin: Negative. Musculoskeletal: Positive for back pain. Gastrointestinal: Negative. Genitourinary: Negative. Neurological: Negative. Psychiatric/Behavioral: The patient is nervous/anxious. Allergic/Immunologic: Negative. Vascular: Negative. CARDIOVASCULAR: Please review HPI. Physical Examination General appearance: Alert, oriented and cooperative. In no acute distress. Skin: Warm and dry to touch. Head: Normocephalic, without obvious abnormality, atraumatic. Ears, Nose, Mouth, Throat: Throat clear without erythema or exudate. Dentition intact. Eyes: Conjunctivae unremarkable, EOM intact. Neck: No JVD, No carotid bruit. Neck supple, trachea midline. Respiratory: Clear to auscultation bilaterally, no use of accessory muscles. Cardiovascular: RRR with normal S1 and S2 with no murmurs. Gastrointestinal: Soft, non-tender. Bowel sounds normal. Musculoskeletal: No peripheral edema. Neurologic: Oriented to time, person and place, affect appropriate. No focal/major motor defects noted. Psychiatric: Appropriate mood, memory and judgement. VITAL SIGNS: BP (!) 136/94 (BP Site: Left Arm, BP Postition: Sitting) Pulse 83 Ht 172.7 cm (5' 8 ) Wt 121.3 kg (267 lb 6.4 oz) SpO2 98% BMI 40.66 kg/m Orders Placed or Reconciled This Encounter Medications omeprazole (PriLOSEC) 20 mg capsule Sig: Take 1 capsule (20 mg total) by mouth in the morning. cholecalciferol 10 mcg (400 unit) tablet Si tablets (800 Units total) in the morning. There are no discontinued medications. IMPRESSIONS/PLAN 1. Heart palpitations - Ambulatory referral to Cardiology ([facility]) 1. Palpitations have resolved most likely from PVCs her stress she is a otherwise doing extremely well losing weight exercising and feels fine presently so I would just wait at this time. If she gets a lot of palpitations again we can always send a monitor to her house TODAYS ORDERS No orders of the defined types were placed in this encounter. FOLLOW UP No follow-ups on file. PCP: MELISSA Noyola Referring Physician: Sabiha Deleon APRN-THEA [address] [place] [phone] documented in this encounter [facility] 03-12-2024 Miscellaneous Notes Left message for patient to remind them to bring their most current medication list with them to their appointment. documented in this encounter [facility] 03-12-2024 Telephone encounter Note Left message for patient to remind them to bring their most current medication list with them to their appointment. [facility] 10-11-2022 Evaluation note Encounter Date Diagnosis Assessment [...] the onset of your symptoms of COVID [employer] Other Chizn complaint+Reason for visit Narrative* Chief Complaint sinus pressure, coug h Reason for Visit Contact with and (matt spected) exposure to covid-19 Sore throat Sinusitis [facility] Work Phone: Evaluation note* Diagnosis Onset Date Resolution Status Contact with and (suspected) exposure to covid-19 acute Sore throat acute Sinusitis noneactive [facility] Work Phone: Evaluation note* Diagnosis Postoperative visit S/P laparoscopic procedure Other postprocedural status [facility] Diagnosis PCOS (polycystic ovarian syndrome) Polycystic ovaries Encounter for fertility planning [facility] Diagnosis Pre-op examination Pelvic pain in female Unspecified symptom associated with female genital organs Fallopian tube disorder Unspecified noninflammatory disorder of ovary, fallopian tube, and broad ligament [facility] Diagnosis Encounter for fertility planning PCOS (polycystic ovarian syndrome) Polycystic ovaries Pelvic pain in female Unspecified symptom associated with female genital organs Abnormal uterine bleeding (AUB) [facility]* Diagnosis Heart palpitations- Primary Palpitations [facility] Diagnosis Encounter for fertility planning Acute cystitis without hematuria PCOS (polycystic ovarian syndrome) Polycystic ovaries Fallopian tube disorder Unspecified noninflammatory disorder of ovary, fallopian tube, and broad ligament documented in this encounter [facility] HealthcareInstructionsNot on filedocumented in this encounterPro[facility] SystemInstructionsNot on filedocumented in this encounterPro[facility] SystemInstructionsNot on filedocumented in this encounterProWexner [facility] System Family History No Family History Records Found [...] Reason Comments Pre-op Visit Reason Comments Infertility Reason Comments New Patient DIVISION CHAIR PALPITATIONS SCHE D W/ PT LABS [facility] AT [facility] AT PCP Specialty Diagnoses / Procedures Referred By Radha t Referred To Contact Cardiology Diagnoses Heart palpitations Sabiha Deleon APRN-THEA [address] [place] [address] [facility] [address] [address] Referral ID Status Reason Start Date Expiration Date Visits Requested Visits Authorized [id number] Pending Review Specialty Services Required 01/25/2024 01/24/2025 1 1 Reason Comments Follow-up Care Teams (unrecognized sec tion and content) Team Status: Active Member Role Status Dates PHYSICIAN NO FAMILY Primary Care Provider Active Team Status: Inactive Member Role Status Dates PHYSICIAN NO FAMILY Primary Care Provider Active Start: November 24, 2023 End: November 24, 2023 DANA FariasC Attending Provider Active S tart: November 24, 2023 End: November 24, 2023 Beam Press Operator Relationship Specialty Start Date End Date Kromer, Judy PCP - [facility] [employer] 02/20/24 Beam Press Operator Relationship Specialty Start Date End Date Kromer, Judy PCP - [facility] [employer] [facility] 02/20/24 Beam Press Operator Relationship Specialty Start Date End Date Kromer, Judy PCP - [facility] [place] [employer] [facility] 02/20/24 Beam Press Operator Relationship Specialty Start Date End Date Kromer, Judy PCP - [facility] [place] [employer] [facility] 02/20/24 Beam Press Operator Relationship Specialty Start Date End Date Kromer, Judy PCP - [facility] [place] [employer] [facility] 02/20/24 Beam Press Operator Relationship Specialty Start Date End Date Kromer, Judy PCP - [facility] [place] [employer] [facility] 02/20/24 Beam Press Operator Relationship Specialty Start Date End Date Kromer, Judy PCP - [facility] [place] [employer] [facility] 02/20/24 Beam Press Operator Relationship Specialty Start Date End Date [facility], [facility] [address], [place] PCP - General Family Medicine 11/12/22 Beam Press Operator Relationship Specialty Start Date End Date [facility] [address] [place] PCP - General Family Medicine 11/12/22 Beam Press Operator Relationship Specialty Start Date End Date [facility] [address] [place] PCP - General Family Medicine 11/12/22 Beam Press Operator Relationship Specialty Start Date End Date Kromer, Judy PCP - [facility] [place] [employer] 02/20/24 Goals (unrecognized section and content) Goals may be documented in a n alternate section INFORMATION SOURCE (unrecogn ized section and content) DATE CREATED AUTHOR 11/06/2024 [facility] DATE CREATED AUTHOR AUTHOR'S EULA RUSSELL 11/13/2024 [facility] EPIC FOR RECORDS PERTAINING TO PATIENTS [...] BE BASED ON THE PRIMARY CLINICAL RECORDS. [facility]. provides no warranty or guarantee of the accuracy or completeness of information in this document.
[2024-11-17 04:11] LABS: Progesterone 11.2 ng/mL (.)
== END 2024-11-16 13:10 | disposition home or self-care (01) ==
LOC: LAB 13:11
PROVIDERS: PCP Nurse Practitioner; Visit Provider Obstetrics & Gynecology
DX: N83.9 Noninflammatory disorder of ovary, fallopian tube and broad ligament, unspecified (principal); E28.2 Polycystic ovarian syndrome
CPT/HCPCS: 36415; 84144

== ENCOUNTER 2024-12-10 20:41 | Outpatient (REF) | payer MEDICAID, SELFPAY ==
[2024-12-13 15:08] LABS: Age Gdln ACOG Testing Note (.); HPV Aptima Negative (Negative); IGP, Aptima HPV, rfx 16/18,45 Note (.)
== END 2024-12-10 20:42 | disposition home or self-care (01) ==
LOC: LAB 20:41
PROVIDERS: PCP Nurse Practitioner; Visit Provider Obstetrics & Gynecology
DX: Z01.419 Encounter for gynecological examination (general) (routine) without abnormal findings (principal)
CPT/HCPCS: 87624; 88175

== ENCOUNTER 2024-12-17 13:00 | Outpatient (OUT) | payer MEDICAID, SELFPAY ==
[2024-12-18 05:09] LABS: Progesterone 37.9 ng/mL (.)
== END 2024-12-17 13:01 | disposition home or self-care (01) ==
LOC: LAB 13:01
PROVIDERS: PCP Nurse Practitioner; Visit Provider Obstetrics & Gynecology
DX: N83.9 Noninflammatory disorder of ovary, fallopian tube and broad ligament, unspecified (principal); E28.2 Polycystic ovarian syndrome
CPT/HCPCS: 36415; 84144

== ENCOUNTER 2024-12-18 14:26 | Outpatient (REF) | payer MEDICAID, SELFPAY | END 2024-12-18 14:27 | disposition home or self-care (01) | LOC: LAB 14:26 | PROVIDERS: PCP Nurse Practitioner; Visit Provider Obstetrics & Gynecology | DX: D22.9 Melanocytic nevi, unspecified (principal) ==

== ENCOUNTER 2025-01-16 15:11 | Outpatient (OUT) | payer MEDICAID, SELFPAY ==
[2025-01-18 05:08] LABS: Progesterone 8.7 ng/mL (.)
== END 2025-01-16 15:12 | disposition home or self-care (01) ==
LOC: LAB 15:11
PROVIDERS: PCP Nurse Practitioner; Visit Provider Obstetrics & Gynecology
DX: N83.9 Noninflammatory disorder of ovary, fallopian tube and broad ligament, unspecified (principal); E28.2 Polycystic ovarian syndrome
CPT/HCPCS: 36415; 84144

== ENCOUNTER 2025-03-20 12:30 | Outpatient (OUT) | payer MEDICAID, SELFPAY ==
--- OUTSIDE RECORDS SUMMARY | 2025-03-05 09:15 | XMS_ITS ---
Author Organization [facility] vices Address [address] [place], [place] [phone] Care Team Providers Care Photograph Retoucher Name Role Phone Sabiha Aviles Primary Care Provider REASON FOR VISIT 3m depression, anxiety Social History Sex Assigned At : Social History Observation Description Sex Assigned At Female Encounters Encounter Location Date Provider Diagnosis East [address] [place] [phone] 03/05 Sabiha Aviles Plan Of Treatment No Information Progress Notes * Chayo RAMIRESDOB: 2 (35 yo F)Acc No.[id number]:03/05/2025 Medical Note Patient: Trent MORALESChayo Biggs Provider: Jill Aviles :1990 A ge:34 Y S ex:Female Date:03/05/2025 Address:[address] [place], [place] [phone] Subjective: * Chief Complaints: * 1 . 3m depression, anxiety. * Medical History: Objective: * Vitals: Assessment: Plan: * Treatment: * Billing Information: * Visit Code: * Procedure Codes: * Electronic signature of THEA Turk on 03/20/2025 at 12:33 PM EDT Sign off status: Pending * Provider: Jill Aviles Date: 03/05/2025 Generated for Carol ng/Jeannie/eTransmitting on: 03/20/2025 12:33 PM EDT
--- OUTSIDE RECORDS SUMMARY | 2025-03-20 12:34 | XMS_ITS | Clinical Summary ---
Author Organization [facility] Address [address] [facility] [place] [address] Care Team Providers Care Transportation Broker Name Role Phone Judy Caal Unavailable Unavailable Allergies No known active allergies Medications D-400 10 MCG (400 UNIT) tablet TAKE 2 TABLETS BY MOUTH ONCE DAILY FOR 30 DAYS Active omeprazole (PriLOSEC) [address] capsule Take 20 mg by mouth in the morning. 4 Active sertraline (Zoloft) 25 MG tablet Take 50 mg by mouth 1 (one) time each day at the same time 5 Active metFORMIN XR (Glucophage-XR) 500 MG 24 hr tabletIndicatio ns:PCOS (polycystic ovarian syndrome),Abnor mal uterine bleeding (AUB) Take 1 tablet (500 mg) by mouth in the evening. Take with meals Do not crush, chew, or split. 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 PCOS (polycystic ovarian syndrome) 07/30/2024 Comments Yes Encounters Date Type Department Care Team Description 03/01/2025 9:30 AM EDT Initial [facility] [address] [place] [id number] 03/01/2025 9:00 AM EDT Ancillary Procedure [facility] [address] [place] [address] Missed menses 02/22/2025 Travel 01/16/2025 Clinisync Result Encounter [facility] External Department Unsolicited Caesar Broderick, 01/03/2025 Abstract [facility] [address] [place] [address] [place] 01/03/2025 Telephone [facility] [address] [facility] [place] [address] T[place], [place] 12/27/2024 Telephone [facility] [address] [place] [address] Karoline Casillas LPN 12/25/2024 Orders Only [facility] [address] [facility] [place] [address] Luz Marina Velez LPN from Last 3 Months Family History Medical History Relation Name Comments epilepsy Brother Diabetes Father HTN Father Pancreatic cancer Maternal Grandfather htn Mother Relation Name Status Comments Brother Father Maternal Grandfather Mother Social History Tobacco Use Types Packs/Day Years Used Date Smoking Tobacco: Never Assessed Comments Yes Sex and Gender Information Value Date Recorded Sex Assigned at Not on file Legal Sex Female 9:48 AM EDT Gender Identity Not on file Sexual Orientation Not on file Last Filed Vital Signs Vital Sign Reading Time Taken Comments Blood Pressure 124/76 03/01/2025 10:03 AM EDT Pulse - - Temperature - - Respiratory Rate - - Oxygen Saturation - - Inhaled Oxygen Concentration - - Weight 124 kg (274 lb) 03/01/2025 10:03 AM EDT Height 172.7 cm (5' 8 ) 06/11/2024 2:39 PM EDT Body Mass Index 41.66 06/11/2024 2:39 PM EDT Plan of Treatment Upcoming Encounters Date Type Department Care Team (Late st Contact Info) Description 03/28/2025 11:40 AM EDT Routine [facility] [address] [place] [address] Caesar Broderick, DO [address] [place] [address] 12/16/2025 3:00 PM EDT Office Visit [facility] [address] [facility] [place] [address] Caesar Broderick, [address] [facility] [place] [address] Health Maintenance Due Date Last Done Comments Influenza Vaccine (#1) 2025 HPV/Cotest 11/24/2027 11/23/2022 Cervical Cancer Screening 12/11/2027 Pap Smear 12/11/2027 12/10/2024, 11/19/2022 Procedures Procedure Name Priority Date/Time Associated Diagnosis Comments POCT URINALYSIS DIPSTICK Routine 03/01/2025 10:11 AM EDT Missed menses POCT , URINE Routine 03/01/2025 10:10 AM EDT Missed menses US OB TRANSVAGINAL Routine 03/01/2025 9: 24 AM EDT Missed menses ALL PROGESTERONE Routine 01/16/2025 3:27 PM EDT PAP SMEAR Routine 12/10/2024 12:00 AM EDT from Last 3 Months or Most Recently Relevant to Health Maintenance Results * POCT urinalysis dipstick manually resulted (03/01/2025 10:11 AM EDT) Color, UA Yellow Clarity, UA Clear Glucose, UA Negative Negative - 1999(110) ++++ mg/dL Bilirubin, UA Negative Negative - 4(70) +++ mg/dL Ketones, UA Negative Negative - 160(16) ++++ mg/dL Spec Grav, UA 1.005 1 - 1.03 Blood, UA Negative Negative - 50 Surjit/mcL pH, UA 7.0 5 - 9 Protein, UA Negative Negative - 1999(20) ++++ mg/dL Urobilinogen, UA 0.2 0.2 - 12 mg/dL Leukocytes, UA Negative Negative - 500+++ Kaleigh/mcL Nitrite, UA Negative Negative - Positive Urine 03/01/2025 10:1 1 AM EDT us Caesar Davie DO POINT OF CARE TEST ENTER/EDIT OR DERABLES Final Result * (ABNORMAL) POCT , urine manually resulted (03/01/2025 10:10 AM EDT) Preg Test, Ur Positive Negative Urine 03/01/2025 10:1 0 AM EDT us Caesar Davie DO POINT OF CARE TEST ENTER/EDIT OR DERABLES Final Result * US OB transvaginal (03/01/2025 9:24 AM EDT) Anatomical Region Laterality Modality Body Ultrasound 03/01/2025 6:14 PM EDT Impressions 03/04/2025 8:01 AM EDT 1. Findings consistent with a live intrauterine gestation, current sonographic age of 9 weeks and 0 days resulting in an estimated date of delivery of October 04, 2025. 2. Left ovarian benign cysts, overall left ovarian size 5.6 x 6.1 x 6.9 cm (123 cc volume). This can serve as a baseline for follow-up examinations if this represents a new finding. TRANSCRIBED BY: ELECTRONICALLY SIGNED BY: Mariusz Altamirano MD Narrative 03/04/2025 8:01 AM EDT FINDINGS: A single intrauterine gestational sac is present. No subchorionic hemorrhage. A single pole is present. Normal heart rate at 180 beats per minute. Yolk sac also is seen. Current sonographic age is 9 weeks and 0 days based on the crown-rump length measurement of 2.3 cm. Based on this age, current estimated date of delivery is October 04, 2025. No pelvic fluid or adnexal mass present. Left adnexal multiseptated cysts, no shadowing or increase in vascularity, largest of the three 6.2 x 5.2 x 5.1 cm, the remaining two measure 2.0 - 3.5 cm. Small amount of pelvic fluid. Procedure Note Mariusz Altamirano MD - 03/04/2025 FINDINGS: A single intrauterine gestational sac is present. No subchorionichemorrhage. A single pole is present. Normal heart rate at180 beats per minute. Yolk sac also is seen. Current sonographic age is9 weeks and 0 days based on the crown-rump length measurement of 2.3 cm.Based on this age, current estimated date of delivery is September. No pelvic fluid or adnexal mass present. Left adnexal multiseptated cysts, no shadowing or increase in vascularity,largest of the three 6.2 x 5.2 x 5.1 cm, the remaining two measure 2.0 -3.5 cm. Small amount of pelvic fluid. IMPRESSION: 1. Findings consistent with a live intrauterine gestation, currentsonographic age of 9 weeks and 0 days resulting in an estimated date ofdelivery of October 04, 2025. 2. Left ovarian benign cysts, overall left ovarian size 5.6 x 6.1 x 6.9 cm(123 cc volume). This can serve as a baseline for follow-up examinationsif this represents a new finding. TRANSCRIBED BY: ELECTRONICALLY SIGNED BY: Mariusz Altamirano MD us Caesar Broderick DO [facility] OB US PROCEDURES Final Resul t * ALL PROGESTERONE (01/16/2025 3:27 PM EDT) PROGESTERONE 8.7 . ng/mL TB Comment: Follicular phase 0.1 - 0.9 Luteal phase 1.8 - 23.9 Ovulation phase 0.1 - 12.0 First trimester 11.0 - 44.3 Second trimester 25.4 - 83.3 Third trimester 58.7 - 214.0 Postmenopausal 0.0 - 0.1 Performed at: [facility] [id number] Eligibility Consultant: Yobany Blount PhD, Phone: [phone] 01/16/2025 3:27 PM EDT 01/16/2025 3:28 PM EDT Narrative [facility] - 01/18/2025 5:08 AM EDT us Caesar Heatho DO [facility] Final Result [facility] * Pap Smear (12/10/2024 12:00 AM EDT) Swab Cervical swab / Unknown us Davie Nurse [facility] CYTOLOGY ORDERABLES Final Result EXTERNAL LAB from Last 3 Months or Most Recently Relevant to Health Maintenance Insurance [employer] [employer] [place] Care Teams Transportation Broker Relationship Specialty Start Date End Date Judy Caal PCP - [facility] MAIL CLERK BILLS 02/20/24
--- OUTSIDE RECORDS SUMMARY | 2025-03-20 12:34 | XMS_ITS | Patient Health Record ---
Author Organization [facility] vices Address [address] [place], [place] [id number] Care Team Providers Care Chain Sales Consultant Name Role Phone Sabiha Aviles Primary Care Provider Noelle Chris Unavailable [phone] Judy Yepez Unavailable [phone] Allergies No Known Allergies Results Component Value Reference Range Notes VITAMIN D 25 HYDROXY Reviewed date:02/08/2025 09:10:44 AM Interpretation: Performing Lab: Notes/Report: VITAMIN D, 25 HYDROXY 22.6 30.0-100.0 ng/mL 25-OH VITAMIN D INTERPRETATION Deficiency.... <20.0 ng/ml Insufficiency..20.0-29.0 ng/ml Sufficiency....30.0-100.0 ng/ml Possible Toxicity...>150 ng/ml UNLESS OTHERWISE INDICATED, ALL TESTING PERFORMED AT: [facility] [address] [place] [address] LIGHTHOUSE KEEPER: BARBARA DASH M.D. CLIA NUMBER [id number] CAP ACCREDITATION AUID [id number] CBC NO DIFF Reviewed date:02/08/2025 11:13:49 AM Interpretation: Performing Lab: Notes/Report: WBC 13.8 3.6-11.0 THDS/CMM RBC 4.25 3.80-5.20 MILL/CMM HGB 13.3 11.9-16.0 G/DL HCT 40.0 35-47 % MCV 94 75-100 fL MCH 31.3 26.0-33.0 pg MCHC 33.3 32.0-35.0 g/dl RDW 12.8 11.2-14.8 % PLATELET 301 140-440 THOUS/CMM COMPREHENSIVE METABOLIC PANE L WITH GFR Reviewed date:02/08/2025 08:56:14 AM Interpretation: Performing Lab: Notes/Report: GLUCOSE 80 70-100 mg/dL BUN 7 6-20 mg/dL CALCIUM 9.4 8.6-10.5 mg/dL CREATININE, BLOOD 0.71 0.51-1.15 mg/dL eGFR (2020 CKD-EPI) 116 >59 mL/min/1.73m2 SODIUM 137 135-148 mmol/L POTASSIUM 4.4 3.5-5.4 mmol/L CHLORIDE 104 96-107 mmol/L CO2 22 18-32 mmol/L ANION GAP 11 7-16 mmol/L T. BILIRUBIN 0.2 <1.3 mg/dL ALK PHOS 50 30-101 U/L AST-SGOT 20 9-40 U/L ALT-SGPT 22 5-33 U/L T. PROTEIN 6.5 6.0-8.3 g/dL ALBUMIN 4.2 3.5-5.2 g/dL TSH + FREE T4 PROFILE Reviewed date:02/08/2025 08:56:14 AM Interpretation: Performing Lab: Notes/Report: TSH 1.69 0.270-4.200 uIU/mL The [place] [employer] (HUGO) recommends the following reference ranges for TSH levels during : First trimester: 0.1 to 2.5 mIU/L Second trimester: 0.2 to 3.0 mIU/L Third trimester: 0.3 to 3.0 mIU/L FREE T4 1.12 0.80-1.90 ng/dL LIPID PANEL WITH REFLEX TO D IRECT LDL Reviewed date:02/08/2025 11:13:42 AM Interpretation: Performing Lab: Notes/Report: CHOLESTEROL 170 100-199 mg/dL TRIGLYCERIDES 208 20-149 mg/dL VLDL-CHOL, CALCULATED 42 <30 mg/dL HDL-CHOL 45 >=50 mg/dL LDL-CHOL, CALCULATED 83 <130 mg/dL ADULT LDL CHOLESTEROL CLASSIFICATION <100mg/dL Optimal 100-129mg/dL Near/Abov e Optimal 130-159mg/dL Borderlin e High >160mg/dL High Risk Desirable range <100 mg/dL for patients with CHD or diabetes and <70 mg/dL for diabetic patients with known heart disease. Direct LDL is recommended for patients with triglycerides >400. LDL/HDL 1.8 <4.1 LDL/HDL RATIO MALE FEMALE below average risk <2.3 <2.3 average risk <5.0 <4.1 moderate risk <7.1 <5.6 high risk >7.1 >5.6 CHOL/HDL 3.8 2.0-4.5 Urine Dip Reviewed date:11/12/2024 05:53:24 PM Interpretation: Performing Lab: Notes/Report: Bilirubin - Occult Blood - Glucose - Ketones - WBC - Nitrite - Ph 6.0 Protein - Specific [place] 1.010 Color yellow Appearance clear URINALYSIS - REFLEX CULTURE/ SENS Reviewed date:11/13/2024 11:59:49 AM Interpretation: Performing Lab: Notes/Report: PH 6.5 5.0-8.0 SP GRAVITY 1.006 1.005-1.030 APPEARANCE CLEAR CLEAR COLOR YELLOW YELLOW PROTEIN NEGATIVE NEGATIVE GLUCOSE NEGATIVE NEGATIVE KETONES NEGATIVE NEGATIVE BILIRUBIN NEGATIVE NEGATIVE OCCULT BLOOD NEGATIVE NEGATIVE LEUKO DANIEL NEGATIVE NEGATIVE NITRITE NEGATIVE NEGATIVE UROBILINOGEN 0.2 <2 mg/dL UNLESS OTHERWISE INDICATED, ALL TESTING PERFORMED AT: [facility] [address] [place] [address] LIGHTHOUSE KEEPER: BARBARA DASH M.D. CLIA NUMBER [id number] [facility] ACCREDITATION AUID [id number] Reason For Referral No Information Medications Medication SIG (Take, Route, Frequency, Duration) Notes Start Date End Date Status Omeprazole 20 MG 1 capsule 30 minutes before morning meal Orally Once a day for 30 day(s) 01/24/2024 Not-Taking Cholecalciferol 10 MCG (400 UNIT) 2 capsules Orally Once a day PA submitted 02/0801/26/2024 Not-Taking Sertraline HCl 50 MG 1 tablet Orally Once a day for 30 days dose increase on 12/04/2024 11/06/2024 Active metFORMIN HCl ER 500 MG 1 tablet with evening meal Orally Once a day for 30 days Not-Taking Clomid 50 MG 1 tablet Oral Once a day for 5 days Not-Taking Social History Tobacco Use: Social History Observation Description Date Details (start date - stop date) Never Smoker NA - NA Sex Assigned At : Social History Observation Description Sex Assigned At Female Household Question Answer Notes Number of adults in household: 1 Number of children in household: 1 Tobacco Use/Smoking Question Answer Notes Tobacco use: nonsmoker patient enter ed data CAGE-AID Questionnaire (2018 Edition) Question Answer Notes Have you ever felt that you ought to cut down on your drinking or drug use? No patient entered data Have people annoyed you by c riticizing your drinking or drug use? No patient entered data Have you ever felt bad or gu ilty about your drinking or drug use? No patient entered data Have you ever had a drink or used drugs first thing in the morning to steady your nerves or to get rid of a hangover? No patient entered data CAGE-AID Score 0 Interpretation Negative PRAPARE Question Answer Notes Date Completed/Updated: 11/06/2024 lucas babin entered data What is your current housing situation? I have housing patient entered data Are you worried about losing your housing? No patient entered data What is the highest level of school that you have finished? 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 Check all that apply I do not have problems meeting my needs Has lack of transportation k ept you from medical appointments, meetings, work or from getting things needed for daily living? No How often do you see or talk to people that you care about and feel close to? (For example: talking to friends on the phone, visiting friends or family, going to sabianism or club meetings) More than 5 times a week patient entered data How stressed are you? Stress is when someone feels tense, nervous, anxious, or can't sleep at night because their mind is troubled Quite a bit patient entered data In the past year have you sp ent more than 2 nights in a row in a group home, custodial, long-term center, or juvenile correctional facility? No patient entered suzette a Are you a refugee? No patient en tered data What country are you from? [place] jillian buckley entered data Do you feel physically and emotionally safe where you currently live? Yes patient entered data In the past year, have you b een afraid of your partner or ex-partner? 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) Active confirmed Vital Signs Heart Rate 74 /min 02/05/2025 Deidre Virk 02/05/2025 02:02:29 PM EDT > Temperature 98.3 degrees Fahrenheit 02/05/2025 Deidre Madrid 02/05/2025 02:02:29 PM EDT > Respiratory Rate 18 /min 02/05/2025 Kaitlin Virk 02/05/2025 02:02:29 PM EDT > Blood pressure diastolic 84 mm Hg 02/05/2025 Deidre Ng 02/05/2025 02:02:29 PM EDT > Oximetry 97 % 02/05/2025 Deidre Virk 02/05/2025 02:02:29 PM EDT > Height-cm 172.72 cm 02/05/2025 Deidre Virk 02/05/2025 02:02:29 PM EDT > Weight-kg 123.61 kg 02/05/2025 Deidre Virk 02/05/2025 02:02:29 PM EDT > Height 68 in 02/05/2025 Deidre Virk 02/05/2025 02:02:29 PM EDT > Blood pressure systolic 131 mm Hg 02/05/2025 Deidre Madrid 02/05/2025 02:02:29 PM EDT > Weight 272.5 lbs 02/05/2025 Deidre Virk 02/05/2025 02:02:29 PM EDT > BMI 41.43 kg/m2 02/05/2025 Deidre Virk 02/05/2025 02:02:29 PM EDT > Encounters Encounter Location Date Provider Diagnosis [address] [id number] 11/06/2024 [facility] Depression with an xiety F41.8 and Hospital discharge follow-up Z09 [address] [id number] 11/12/2024 [facility] Dysuria R30.[address] [id number] [facility] [id number] 02/05/2025 [facility] Encounter for well ness examination Z00.00 ; Screening for cardiovascular condition Z13.6 ; Exercise counseling Z71.82 ; Nutritional counseling Z71.3 ; Screening for thyroid disorder Z13.29 and Vitamin D deficiency E55.9 [address] [place], [place] [id number] 06/24/2024 Judy Yepez Assessments Encounter Date Diagnosis (ICD Code) Assessment Notes Treatment Notes Treatment Clinical Notes Section Notes 11/06/2024 Depression with anxiety (ICD-10 - F41.8) begin zoloft will start with 25mg and increase to 50mg if needed f.u in 4 weeks or sooner if needed if develop SI, please go to ER or call 911. 11/12/2024 Dysuria (ICD-10 - R30.0) urine dip normal in office will send for culture 12/04/2024 Anxiety with depression (ICD-10 - F41.8) increasing zoloft f.u in 3 months or sooner if needed 02/05/2025 Encounter for wellness examination (ICD-10 - Z00.00) The patient comes in today to complete yearly wellness exam with this provider. Blood work that is ordered is explained to the patient as to what we would be screening for and what the blood work specifically looks at. All blood work will be reviewed as it is resulted and then corresponded to the patient either by phone, during a visit, or both. 02/05/2025 Screening for cardiovascular condition (ICD-10 - Z13.6) Based on this patients' elevated BMI, it is in the medical opinion of myself that they are screened for any cardiovascular condition that may detrimental to their health and wellbeing. This is to include a cholesterol panel to evaluate any concerning elevations of their lipids. Based on these findings a collaboration between the patient and this provider will be had either on the phone or at their next office visit to discuss the best course of treatment to help minimize the worsening of any cardiovascular conditions. 02/05/2025 Exercise counseling (ICD-10 - Z71.82) The patient was encouraged to increase exercise weekly to at least 3-4 times per week for 30-45 minutes for each session. Exercise may include but is not limited to walking, jogging, running, resistance training, water aerobics and strength training. Additionally, the patient was encouraged to inquire with their current insurance for any sponsored exercise regimens that would be covered their insurance as well. Benefits of increasing exercise regimens may include healthier lifestyle, stronger bone health, diminished aches and pain, and better metabolism. 11/06/2024 Hospital discharge follow-up (ICD-10 - Z09) 02/05/2025 Nutritional counseling (ICD-10 - Z71.3) The patient was counseled on appropriate nutritional diet choices that should be made daily. It was encouraged that there should be 3 well balanced meals that occur daily with 1-2 healthy snacks that may occur in between those meals. Strong advisement was given to the patient to avoid all fast foods, fried foods, fatty foods, and greasy foods to alleviate any detrimental conditions in the future. The patient was encouraged to reach back out to the office if they find themselves unable to afford fresh fruits and vegetables for themselves or their family and be directed to local groups that would best help their dietary needs. 02/05/2025 Screening for thyroid disorder (ICD-10 - Z13.29) 02/05/2025 Vitamin D deficiency (ICD-10 - E55.9) 02/05/2025 Other Plan Of Treatment No Information Insurance Providers Payer Name Payer Address Payer Phone Subscriber Number Group Number Insured Name Patient Relationship to Insured Coverage Start Date Coverage End Date Rosey [facility] [address] [place] [phone] [id number] [id number] Chayo Ramires Self - patient is the insured 3 Medicaid C[employer] after Rosey [address] [place] [address] [id number] Chayo Ramires Self - patient is the insured 3 Medical (General) History Medical History History ICD Code anxiety depression Surgical History Surgery Date(Month/Year) [place] teeth laparoscopy- endometriosis
--- OUTSIDE RECORDS SUMMARY | 2025-03-20 12:34 | XMS_ITS | Encounter Summary ---
Author Organization [facility] Address [address] [place] [address] Care Team Providers Care Bargain Table Clerk Name Role Phone Judy Caal Unavailable Unavailable Encounter Details Date Type Department Care Team (Late st Contact Info) Description 06/01/2024 Abstract [facility] [place] [address] Caesar Broderick DO [address] [place], [id number] Social History Tobacco Use Types Packs/Day Years Used Date Smoking Tobacco: Never Assessed Comments No Sex and Gender Information Value Date Recorded Sex Assigned at Not on file Legal Sex Female 9:48 AM EDT Gender Identity Not on file Sexual Orientation Not on file documented as of this encounter Plan of Treatment Upcoming Encounters Date Type Department Care Team (Late st Contact Info) Description 03/28/2025 11:40 AM EDT Routine [facility] [place] [address] Caesar Broderick DO [address] [place], [id number] 12/16/2025 3:00 PM EDT Office Visit [facility] [address] [place] [address] Caesar Broderick DO [address] [place], [id number] documented as of this encounter Visit Diagnoses Not on filedocumented in this encounter Care Teams Bargain Table Clerk Relationship Specialty Start Date End Date Judy Caal PCP - [facility] SUPPLY CHAIN PROGRAM MANAGER 02/20/24 documented as of this encounter
--- OUTSIDE RECORDS SUMMARY | 2025-03-20 12:34 | XMS_ITS | Encounter Summary ---
Author Organization [facility] Address [address] [facility] [place] [address] Care Team Providers Care Sanitation Worker Name Role Phone Judy Caal Unavailable Unavailable Encounter Details Date Type Department Care Team (Late st Contact Info) Description 01/03/2025 Abstract [facility] HEAD [facility] [place] [address] Tsering Willingham [place] Social History Tobacco Use Types Packs/Day Years [...] Description 03/28/2025 11:40 AM EDT Routine [facility] EHAD [address] [place] [address] [place] [address] Caesar Broderick DO [address] [place], [place] [id number] 12/16/2025 3:00 PM EDT Office Visit [facility] [address] [place] [address] Caesar Broderick DO [address] [place], [place] [id number] documented as of this encounter Visit Diagnoses Not on filedocumented in this encounter Care Teams Sanitation Worker Relationship Specialty Start Date End Date Judy Caal PCP - [facility] FIELD SALES ASSOCIATE 02/20/24 documented as of this encounter
--- OUTSIDE RECORDS SUMMARY | 2025-03-20 12:34 | XMS_ITS | Encounter Summary ---
Author Organization [facility] Address [address] [place] [address] Care Team Providers Care Grey Goods Marker Name Role Phone Judy Caal Unavailable Unavailable Encounter Details Date Type Department Care Team (Late st Contact Info) Description 06/01/2024 Abstract LIANA HEAD [facility] [place] [address] Caesar Broderick DO [address], [facility]11 Social History Tobacco Use Types Packs/Day Years [...] 03/28/2025 11:40 AM EDT Routine LIANA HEAD [facility] [place] [address] Caesar Broderick DO [address], [facility]11 12/16/2025 3:00 PM EDT Office Visit LIANA HEAD [address] [place] [address] Caesar Broderick DO [address], [facility]11 documented as of this encounter Visit Diagnoses Not on filedocumented in this encounter Care Teams Grey Goods Marker Relationship Specialty Start Date End Date Judy Caal PCP - [facility] FEDERAL DISTRICT CLERK 02/20/24 documented as of this encounter
--- OUTSIDE RECORDS SUMMARY | 2025-03-20 12:34 | XMS_ITS | Clinical Summary ---
Author Organization [facility] Address [address] [place] [address] Phone Care Team Providers Care Hot Iron Worker Name Role Phone June Trinidad LPN Unavailable Unavailable Allergies No known active allergies Medications metFORMIN (Glucophage) 500 mg tablet 1 tablet (500 mg). 05/22/2024 Active Encounters Date Type Department Care Team Description 01/03/2025 10:45 AM EDT Consult [address] [address] Franchesca Cisse MD Encounter for preprocedural laboratory examination (Primary Dx); Abnormal uterine bleeding 01/03/2025 Travel 01/02/2025 Travel from Last 3 Months Social History Tobacco Use Types Packs/Day Years Used Date Smoking Tobacco: Never Smokeless Tobacco: Never Tobacco Cessation:Counseling Given: No Alcohol Use Standard Drinks/Week Comments Never 0 (1 standard drink = 0.6 oz pur e alcohol) PHQ-2 Answer Date Recorded Patient Health Questionnaire-2 Score 0 01/03/2025 Comments Unknown Sex and Gender Information Value Date Recorded Sex Assigned at Not on file Legal Sex Female 12:03 PM EST Gender Identity Not on file Sexual Orientation Not on file Last Filed Vital Signs Vital Sign Reading Time Taken Comments Blood Pressure 132/78 01/03/2025 10:52 AM EDT Pulse 73 01/03/2025 10:52 AM EDT Temperature 36.6 C (97.8 F) 01/03/2025 10:52 AM EDT Respiratory Rate - - Oxygen Saturation - - Inhaled Oxygen Concentration - - Weight 122 kg (268 lb 9.6 oz) 01/03/2025 10:52 A M EDT Height 172.7 cm (5' 8 ) 01/03/2025 10:52 AM EDT Body Mass Index 40.84 01/03/2025 10:52 AM EDT Plan of Treatment Health Maintenance Due Date Last Done Comments HIV Screening 1992 Lipid Panel 1992 MMR Vaccines (1 of 1 - Stand jacques series) 1993 Hepatitis C Screening 2010 Hepatitis B Vaccines (1 of 3 - 19+ 3-dose series) 2011 HPV/Cotest 2013 DTaP/Tdap/Td Vaccines (1 - Tdap) 2014 HPV Vaccines (1 - 3-dose sta ndard series) 2019 COVID-19 Vaccine (1 - 2023-2 5 season) 2024 Influenza Vaccine (#1) 2025 Yearly Adult Physical 12/11/2025 12/10/2024 Cervical Cancer Screening 12/11/2027 Pap Smear 12/11/2027 12/10/2024 Zoster Vaccines (1 of 2) 2042 HIB Vaccines Aged Out No longer eligi ble based on patient's age to complete this topic Hepatitis A Vaccines Aged Out No long er eligible based on patient's age to complete this topic IPV Vaccines Aged Out No longer eligi ble based on patient's age to complete this topic Meningococcal Vaccine Aged Out No shy dean eligible based on patient's age to complete this topic Pneumococcal Vaccine: Pediat rics and At-Risk Adult Patients Aged Out No longer chani gible based on patient's age to complete this topic Rotavirus Vaccines Aged Out No longer eligible based on patient's age to complete this topic Insurance [facility] MEDICAID [place] MED[place]ID Care Teams Hot Iron Worker Relationship Specialty Start Date End Date June Trinidad LPN Licensed Practical Nurse Reproductive Endocrinology and Infertility 01/01/25
--- OUTSIDE RECORDS SUMMARY | 2025-03-20 12:34 | XMS_ITS | Encounter Summary ---
Author Organization [facility] Address [facility] [id number] [address] [place] [address] Care Team Providers Care Citrus Fruit Packer Name Role Phone Services, [facility] Primary Care Provider Encounter Details Date Type Department Care Team (Late st Contact Info) Description 03/21/2024 Orders Only [facility] [address] [place] [id number] External, Scanning Provider Social History Tobacco Use Types Packs/Day Years Used Date Smoking Tobacco: Never Smokeless Tobacco: Never Alcohol Use Standard Drinks/Week Comments Not Currently 0 (1 standard drink = 0.6 oz pur e alcohol) Hunger Screening Answer Date Recorded Within the past 12 months we worried whether our food would run out before we got money to buy more. Never True 03/13/2024 Within the past 12 months th e food we bought just didn't last and we didn't have money to get more. Never True 03/13/2024 Comments Unknown Sex and Gender Information Value Date Recorded Sex Assigned at Not on file Legal Sex Female 2:11 PM EST Gender Identity Not on file Sexual Orientation Not on file documented as of this encounter Plan of Treatment Not on file documented as of this encounter Procedures Procedure Name Priority Date/Time Associated Diagnosis Comments MULTIPLE LABS Routine 03/21/2024 11:19 AM EDT LIPID PROFILE Routine 03/21/2024 documented in this encounter Results * Multiple labs (03/21/2024 11:19 AM EDT) us Scanning Provider External [facility] Final Result MANUALLY TRANSCRIBED RESULTS * Lipid profile (03/21/2024) External Cholesterol 153 MANUALLY TRANSCRIBED RESULTS External Cholesterol:Hdl 3.6 MANUALLY TRANSCRIBED RESULTS External Hdl Cholesterol 43 MANUALLY TRANSCRIBED RESULTS External Ldl (Calc) 82 MANUALLY TRANSCRIBED RESULTS External Triglycerides 140 MANUALLY TRANSCRIBED RESULTS Ldl/Hdl Ratio 1.9 MANUAL LY TRANSCRIBED RESULTS us Scanning Provider External LAB BLOOD ORDERABLES Edited Result - Final Performing Organization Address City/[facility]/ZIP Co de Phone Number MANUALLY TRANSCRIBED RESULTS documented in this encounter Visit Diagnoses Not on filedocumented in this encounter Care Teams Citrus Fruit Packer Relationship Specialty Start Date End Date Services, [facility] [address] [place], [place] PCP - General Family Medicine 11/03/24 documented as of this encounter
--- OUTSIDE RECORDS SUMMARY | 2025-03-20 12:34 | XMS_ITS | Encounter Summary ---
Author Organization [facility] Address [address] [place] [address] Care Team Providers Care Horticultural Agent Name Role Phone Judy Caal Unavailable Unavailable Encounter Details Date Type Department Care Team (Late st Contact Info) Description 04/10/2024 Abstract LIANA HEAD [facility] [place] [address] Caesar Broderick DO [address], [facility]11 Social History Tobacco Use Types Packs/Day Years [...] 03/28/2025 11:40 AM EDT Routine LIANA HEAD [facility] [place] [address] Caesar Broderick DO [address], [facility]11 12/16/2025 3:00 PM EDT Office Visit LIANA HEAD [address] [place] [address] Caesar Broderick DO [address], [facility]11 documented as of this encounter Visit Diagnoses Not on filedocumented in this encounter Care Teams Horticultural Agent Relationship Specialty Start Date End Date Judy Caal PCP - [facility] DESIGN CHECKER 02/20/24 documented as of this encounter
--- OUTSIDE RECORDS SUMMARY | 2025-03-20 12:34 | XMS_ITS | Encounter Summary ---
Author Organization [facility] Address [address] [facility] [place] [address] Care Team Providers Care Railcar Carpenter Name Role Phone Judy Caal Unavailable Unavailable Encounter Details Date Type Department Care Team (Late st Contact Info) Description 07/05/2024 Abstract LIANA HEAD [address] [place] [address] [place] [address] Karoline Casillas LPN Social History Tobacco Use Types Packs/Day Years [...] 03/28/2025 11:40 AM EDT Routine LIANA HEAD [address] [place] [address] Caesar Broderick DO [address] 12/16/2025 3:00 PM EDT Office Visit LIANA HEAD [address] [place] [address] Caesar Broderick DO [address], [place] [id number] documented as of this encounter Visit Diagnoses Not on filedocumented in this encounter Care Teams Railcar Carpenter Relationship Specialty Start Date End Date Judy Caal PCP - [facility] PORTRAIT PAINTER 02/20/24 documented as of this encounter
--- OUTSIDE RECORDS SUMMARY | 2025-03-20 12:34 | XMS_ITS | Clinical Summary ---
Author Organization [facility] Address [id number] [address] [place] [address] Care Team Providers Care Freezer Tunnel Operator Name Role Phone [facility] Primary Care Provider Allergies No known active allergies Medications sertraline (ZOLOFT) 25 mg tablet Take by mouth daily. Active omeprazole (PriLOSEC) 20 mg capsule Take 1 capsule (20 mg total) by mouth in the morning. Active cholecalciferol 10 mcg (400 unit) tablet 2 tablets (800 Units total) in the morning. 01/26/2024 Active Active Problems Problem Noted Date Diagnosed Date Heart palpitations 03/13/2024 Family History Medical History Relation Name Comments Diabetes Father Hypertension Father Cancer Maternal Grandfather Hypertension Mother Heart disease Paternal Grandfather Hypertension Paternal Grandfather Relation Name Status Comments Father Maternal Grandfather Maternal Grandmother Mother Paternal Grandfather Paternal Grandmother Social History Tobacco Use Types Packs/Day Years Used Date Smoking Tobacco: Never Smokeless Tobacco: Never Tobacco Cessation:Counseling Given: Not Answered Alcohol Use Standard Drinks/Week Comments Not Currently 0 (1 standard drink = 0.6 oz pur e alcohol) Hunger Screening Answer Date Recorded Within the past 12 months we worried whether our food would run out before we got money to buy more. Never True 11/03/2024 Within the past 12 months th e food we bought just didn't last and we didn't have money to get more. Never True 11/03/2024 Comments No Sex and Gender Information Value Date Recorded Sex Assigned at Not on file Legal Sex Female 2:11 PM EST Gender Identity Not on file Sexual Orientation Not on file Last Filed Vital Signs Vital Sign Reading Time Taken Comments Blood Pressure 133/92 11/04/2024 1:45 AM EDT Pulse 71 11/04/2024 1:00 AM EDT Temperature 37 C (98.6 F) 11/03/2024 9:11 PM EDT Respiratory Rate 18 11/04/2024 1:00 AM EDT Oxygen Saturation 97% 11/04/2024 1:45 AM EDT Inhaled Oxygen Concentration - - Weight 121.3 kg (267 lb 6.4 oz) 024 10:50 AM EDT Height 172.7 cm (5' 8 ) 03/13/2024 10:5 0 AM EDT Body Mass Index 40.66 03/13/2024 10:50 AM EDT Plan of Treatment Health Maintenance Due Date Last Done Comments Depression Screening 2004 DTaP,Tdap and Td Vaccines (1 - Tdap) 2011 Adult BMI Screening 03/13/2025 03/13/2024 Influenza Vaccine 04/22/2025 Tobacco Screening 11/03/2025 11/03/2024 Pap Smear 11/23/2025 11/23/2022, 04/0 11/2022, 11/19/2022 Medical Devices Not on file Procedures Procedure Name Priority Date/Time Associated Diagnosis Comments PAP SMEAR Routine 11/23/2022 5:20 AM EDT Encounter for screening for malignant neoplasm of cervix Encounter for screening for human papillomavirus (HPV) from Last 3 Months or Most Recently Relevant to Health Maintenance Results * Pap Smear (11/23/2022 5:20 AM EDT) 11/23/2022 5:20 AM EDT 11/23/2022 5:29 AM EDT Narrative COPATH - 11/24/2022 1:05 PM EDT [facility] [address] [place] [address] Gynecologic Cytology Consultation Patient Name:ELLEN RAMIRES:1990 (Age: 32)Gender:FTaken:11/23/2022Reported:4/5/2023Physician(s):Bethany Raymundo CNP ([phone])Copy To: Rec. #:[id number]: #[id number] Final Cytologic Interpretation ThinPrep Pap Test (Cervical): Satisfactory for evaluation. A transformation zone component is present. NEGATIVE FOR INTRAEPITHELIAL LESION OR MALIGNANCY. [facility]/11/24/2022 Interpretation performed at [facility], [address] [place] [id number], License number: [id number]. Electronically Signed Out By ZORA Walter(ASCP) Date of Last Menstrual Period: (None Given) Other Clinical Conditions: Z12.4 Screening for malignant neoplasm of cervix Z11.51 Screening for HPV Source of Specimen ThinPrep Pap Test (Cervical) Thin Prep Pap (FOOD ADVISER) Fee Code(s): G0145 us Bethany Raymundo SUPERVISOR MAILS-UNDERCOVER AGENT PATHOLOGY/CYTOLOGY JYOTSNA STANLEY Final Result COPATH from Last 3 Months or Most Recently Relevant to Health Maintenance Insurance [place] MEDICAID Care Teams Freezer Tunnel Operator Relationship Specialty Start Date End Date Services, [facility] [address] [facility] [facility] [place], [place] PCP - General Family Medicine 11/03/24
--- OUTSIDE RECORDS SUMMARY | 2025-03-20 12:34 | XMS_ITS | Encounter Summary ---
Author Organization [facility] Address [address] [place] [address] Care Team Providers Care Security Alarm Technician Name Role Phone Judy Caal Unavailable Unavailable Encounter Details Date Type Department Care Team (Late st Contact Info) Description 12/25/2024 Orders Only LIANA HEAD [address] [employer] [address] [place] [address] Luz Marina Velez LPN [address] [facility] [place], [facility]11 Social History Tobacco Use Types Packs/Day [...] 03/28/2025 11:40 AM EDT Routine LIANA HEAD [facility] [employer] [address] [place] [place] [address] Caesar Broderick, DO [address] [employer] [address] [place], [place] [id number] 12/16/2025 3:00 PM EDT Office Visit LIANA HEAD [address] [place] [address] Caesar Broderick DO [address] [place], [place] [id number] documented as of this encounter Procedures Procedure Name Priority Date/Time Associated Diagnosis Comments PAP SMEAR Routine 12/10/2024 12:00 AM EDT documented in this encounter Results * Pap Smear (12/10/2024 12:00 AM EDT) Swab Cervical swab / Unknown us Davie Nurse [facility] Ob LAB CYTOLOGY ORDERABLES Final Result EXTERNAL LAB documented in this encounter Visit Diagnoses Not on filedocumented in this encounter Care Teams Security Alarm Technician Relationship Specialty Start Date End Date Judy Caal PCP - [facility] ELECTRICAL INTEGRATOR 02/20/24 documented as of this encounter
--- OUTSIDE RECORDS SUMMARY | 2025-03-20 12:34 | XMS_ITS | Encounter Summary ---
Author Organization [facility] Address [address] [place] [address] Care Team Providers Care Desktop Support Manager Name Role Phone Judy Caal Unavailable Unavailable Encounter Details Date Type Department Care Team (Late st Contact Info) Description 06/21/2024 Abstract LIANA HEAD [facility] [place] [address] Caesar Broderick DO [address], [facility]11 Social History Tobacco Use Types Packs/Day Years [...] 03/28/2025 11:40 AM EDT Routine LIANA HEAD [facility] [place] [address] Caesar Broderick DO [address], [facility]11 12/16/2025 3:00 PM EDT Office Visit LIANA HEAD [address] [place] [address] Caesar Broderick DO [address], [facility]11 documented as of this encounter Visit Diagnoses Not on filedocumented in this encounter Care Teams Desktop Support Manager Relationship Specialty Start Date End Date Judy Caal PCP - [facility] Rose[facility] IN FLIGHT REFUELING SYSTEM REPAIRER 02/20/24 documented as of this encounter
--- OUTSIDE RECORDS SUMMARY | 2025-03-20 12:34 | XMS_ITS | Encounter Summary ---
Author Organization [facility] Address [address] [place] [address] Care Team Providers Care Forest Pathologist Name Role Phone Judy Caal Unavailable Unavailable Encounter Details Date Type Department Care Team (Late st Contact Info) Description 04/25/2024 Clinisync Result Encounter [facility] External Department Unsolicited Israel Broderick, DO [address], [facility]11 Social History Tobacco Use Types Packs/Day [...] 03/28/2025 11:40 AM EDT Routine LIANA HEAD [facility] [place] [address] Israel Broderick, DO [address], [place] [id number] 12/16/2025 3:00 PM [place] [address] Israel Broderick, DO [address], [place] [id number] documented as of this encounter Procedures Procedure Name Priority Date/Time Associated Diagnosis Comments US PELVIS W/ TRANSVAGINAL 04/25/2024 6:34 AM EDT documented in this encounter Results * US PELVIS W/ TRANSVAGINAL (04/25/2024 6:34 AM EDT) Anatomical Region Laterality Modality Other 04/25/2024 6:34 AM EDT Narrative 04/25/2024 6:37 [place] [address] Ultrasound Report Signed Patient: ELLEN RAMIRES MR#: [id number] : 1990 Acct:[id number] Age/Sex: 34 / F ADM Date: 04/24/24 Loc: US Attending Dr: Israel Broderick D.O. Ordering Physician: Israel Broderick D.O. Date of Service: 04/24/24 Procedure(s): US pelvis w/ transvaginal Accession Number(s): [id number] cc: Israel Broderick D.O.; Sabiha Aviles [place] [address] Patient Name: ELLEN RAMIRES MRN: [id number] date: 1990 Sex: F Assigned Patient Location: Current Patient Location: Accession/Order Number: [id number] Exam Date: 04/24/2024 14:00 Report Date: 04/25/2024 06:34 At the request of: ISRAEL BRODERICK Procedure: US pelvis w/ transvaginal EXAMINATION: US pelvis w/ transvaginal HISTORY: Polycystic Ovarian Syndrome E28.2 . COMPARISON: No relevant comparison available. TECHNIQUE: Transabdominal and/or transvaginal sonographic examination was performed as indicated by examination type. FINDINGS: UTERUS: Normal size and appearance. Uterus size: 6.7 x 3.9 x 5.1 cm ENDOMETRIUM: Contains a few tiny calcifications; likely dystrophic. Normal homogeneous appearance. Endometrial thickness: 11 mm RIGHT OVARY: Normal size and appearance. Duplex Doppler demonstrates normal waveform and flow; resistive index 0.5. Ovary size: 2. 63.1 x 2.0 cm LEFT OVARY: Normal size and appearance. Duplex Doppler demonstrates normal waveform and flow; resistive index 0.3. Ovary size: 2.8 x 2.1 x 2.1 cm CUL-DE-SAC: Unremarkable. No significant free fluid. BLADDER: Unremarkable. OTHER: None. US/US pelvis w/ transvaginal IMPRESSION: 1. Normal appearance of ovaries. No findings to suggest polycystic ovarian syndrome. Electronically authenticated by: MICHAEL DEAN Date: 04/25/2024 06:34 Dictated By: Michael Dean M.D. Signed By: 04/25/2437 DD/ 3 TD/TT: Car Construction Superintendent: Procedure Note Radiology, Radiologist, MD - 04/25/2024 [place] [address] Ultrasound Report Signed Patient: ELLEN RAMIRES R#: [id number] : 1990Acct:[id number] Age/Sex: 34 / FADM Date: 04/24/24 Loc: US Attending Dr: Israel Broderick D.O. Ordering Physician: Israel Broderick D.O. Date of Service: 04/24/24 Procedure(s): US pelvis w/ transvaginal Accession Number(s): [id number] cc: Israel Broderick D.O.; Sabiha Aviles [employer] The [place] [id number] Patient Name: ELLEN RAMIRES MRN: [id number] date: 1990 Sex: F Assigned Patient Location: Current Patient Location: Accession/Order Number: [id number] Exam Date: 04/24/2024 14:00 Report Date: 04/25/2024 06:34 At the request of: ISRAEL BRODERICK Procedure: US pelvis w/ transvaginal EXAMINATION: US pelvis w/ transvaginal HISTORY: Polycystic Ovarian Syndrome E28.2 . COMPARISON: No relevant comparison available. TECHNIQUE: Transabdominal and/or transvaginal sonographic examination was performed as indicated by examination type. FINDINGS: UTERUS: Normal size and appearance. Uterus size: 6.7 x 3.9 x 5.1 cm ENDOMETRIUM: Contains a few tiny calcifications; likely dystrophic. Normal homogeneous appearance. Endometrial thickness: 11 mm RIGHT OVARY: Normal size and appearance. Duplex Doppler demonstratesnormal waveform and flow; resistive index 0.5. Ovary size: 2. 63.1 x 2.0 cm LEFT OVARY: Normal size and appearance. Duplex Doppler demonstrates normal waveform and flow; resistive index 0.3. Ovary size: 2.8 x 2.1 x 2.1 cm CUL-DE-SAC: Unremarkable. No significant free fluid. BLADDER: Unremarkable. OTHER: None. US/US pelvis w/ transvaginal IMPRESSION: 1. Normal appearance of ovaries. No findings to suggest polycystic ovarian syndrome. Electronically authenticated by: MICHAEL DEAN Date: 04/25/2024 06:34 Dictated By: Michael Dean M.D. Signed By:04/25/24 0637 DD/ 0634 TD/TT: Car Construction Superintendent: us Israel Davie DO [facility] Final Result documented in this encounter Visit Diagnoses Not on filedocumented in this encounter Care Teams Forest Pathologist Relationship Specialty Start Date End Date Judy Caal PCP - [facility] 02/20/24 documented as of this encounter
[2025-03-20 12:55] LABS: Hematocrit 36.4 % (36.0-48.0); Hemoglobin 12.4 g/dL (12.0-16.0); Immature Granulocytes Abs Auto 0.08 10^3/uL (0.00-0.03); Immature Granulocytes Pct Auto 0.6 % (0.0-0.5); Lymphocytes Absolute Auto 2.6 10^3/uL (1.2-3.8); Mean Corpuscular HGB Conc 34.1 g/dL (29.9-35.2); Mean Corpuscular Hemoglobin 31.5 pg (26.7-34.0); Mean Corpuscular Volume 92.4 fL (81.0-99.0); Platelet Count 261 10^3/uL (150-450); Red Blood Count 3.94 10^6/uL (4.20-5.40); White Blood Count 13.9 10^3/uL (4.0-11.0)
[2025-03-20 14:02] LABS: Cannabinoid Screen Urine NEGATIVE (NEGATIVE); Methamphetamines Screen Urine NEGATIVE (NEGATIVE); Tricyclic Antidepressant Urine NEGATIVE (NEGATIVE)
[2025-03-21 05:07] LABS: Rubella Antibodies, IgG 1.99 index (Immune >0.99)
[2025-03-21 11:11] LABS: Rapid Plasma Reagin, Quant Non Reactive titer (NonRea<1:1)
== END 2025-03-20 12:31 | disposition home or self-care (01) ==
LOC: LAB 12:31
PROVIDERS: PCP Nurse Practitioner; Visit Provider Obstetrics & Gynecology
DX: Z34.01 Encounter for supervision of normal first pregnancy, first trimester (principal); N92.6 Irregular menstruation, unspecified
CPT/HCPCS: 36415; 80307; 83036; 85025; 86592; 86762; 86803; 86850; 86900; 86901; 87086; 87340; 87389

== ENCOUNTER 2025-04-17 12:53 | Outpatient (OUT) | payer MEDICAID, SELFPAY ==
--- OUTSIDE RECORDS SUMMARY | 2025-03-05 09:15 | XMS_ITS ---
Author Organization [facility] vices Address [address] [place], [place] [phone] Care Team Providers Care Oral And Maxillofacial Surgery Resident Name Role Phone Sabiha Aviles Primary Care Provider [phone] REASON FOR VISIT 3m depression, anxiety Social History Sex Assigned At : Social History Observation Description Sex Assigned At Female Encounters Encounter Location Date Provider Diagnosis East [address] [place] [phone] 03/05 Sabiha Aviles Plan Of Treatment No Information Progress Notes * Chayo RAMIRESDOB: 2 (35 yo F)Acc No.[id number]:03/05/2025 Medical Note Patient: Trent MORALESChayo Biggs Provider: Jill Aviles :1990 A ge:34 Y S ex:Female Date:03/05/2025 Address:[address] [place], [place] [phone] Subjective: * Chief Complaints: * 1 . 3m depression, anxiety. * Medical History: Objective: * Vitals: Assessment: Plan: * Treatment: * Billing Information: * Visit Code: * Procedure Codes: * Electronic signature of THEA Turk on 04/17/2025 at 12:57 PM EDT Sign off status: Pending * Provider: Jill Aviles Date: 03/05/2025 Generated for Carol ng/Jeannie/eTransmitting on: 04/17/2025 12:57 PM EDT
--- OUTSIDE RECORDS SUMMARY | 2025-04-11 10:30 | XMS_ITS | Encounter Summary ---
Author Organization [facility] Address [address] [place] [address] Care Team Providers Care Ceiling Installer Name Role Phone Judy Caal Unavailable Unavailable Reason for Visit * Reason Comments Routine Visit Encounter Details Date Type Department Care Team (Latest Contact Info) Description 04/11/2025 10:30 AM EDT Routine [facility] [place] [facility] [address] [place] [address] Caesar Broderick DO [address] [facility] [place] [address] 15 weeks gestation of (HHS-HCC); Second trimester [...] this encounter Progress Notes * Karoline Casillas, CASKET COVERER - 04/11/2025 10:30 AM EDT Reason for [...] nursing note reviewed. Exam conducted with a sales representative printing present. Vitals: Estimated body mass index is 42.63 kg/m?? as calculated from the following: Height as of 06/11/24: 5' 8 . Weight as of this encounter: 280 lb 6.4 oz. BP: 140/86 Patient's last menstrual period was 12/26/2024. ASSESSMENT & PLAN ICD-10-CM 1. 15 weeks gestation of ([facility]) Z3A.15 POCT urinalysis dipstick manually resulted 2. Second trimester ([facility]) Z34.92 POCT urinalysis dipstick manually resulted 3. Acute nonintractable headache, unspecified headache type R51.9 4. BP check Z01.30 Patient presents today for a routine obstetrics appointment. Patient is currently 15w1d with a Estimated Date of Delivery: 10/02/25. Patient is having persistent elevated HTN. Discussed patient being referred to [facility] for management and recommendations for Gestational HTN. Patient is agreeable with referral. Patient to be started on Labetalol 200mg BID. Patient given labs and 24 hour urine to have obtained for baseline testing. Patient aware that once lab results are obtained then referral will be completed, so then all results can be sent to [facility] at onetime. Patient to return to [...] EDT Routine [facility] [address] [place] [address] Caesar Broderick DO [address] [place] [address] 12/16/2025 3:00 PM EDT Office Visit [facility] [address] [place] [address] Caesar Broderick, DO [address] [place] [address] [address] [place], [place] [id number] Scheduled Orders Name Type Priority Associated Diagnoses [...] 11:06 AM EDT 15 weeks gestation of ([facility]-HCC) Second trimester ([facility]) documented in this encounter Results * POCT [...] Visit Diagnoses Diagnosis 15 weeks gestation of ([facility]-HCC) Second trimester ([facility]-H[facility]) state, incidental Acute nonintractable headache, unspecified headache type BP check Screening for hypertension Gestational hypertension, antepartum ([facility]) induced hypertension, antepartum ([facility]) Transient hypertension of , antepartum documented in this encounter Care Teams Ceiling Installer Relationship Specialty Start Date End Date Judy Caal PCP - [facility] FURNACE LINER 02/20/24 documented as of this encounter
--- OUTSIDE RECORDS SUMMARY | 2025-04-17 12:57 | XMS_ITS | Encounter Summary ---
Author Organization [facility] Address [id number] [address] [place] [address] Care Team Providers Care Iuss Analyst Name Role Phone Services, [facility] Primary Care Provider Encounter Details Date Type Department Care Team (Late st Contact Info) Description 03/21/2024 Orders Only [facility] [address] [place] [phone] External, Scanning Provider Social History Tobacco Use [...] 11:19 AM EDT) us Scanning Provider External RI IMAGING Final Result MANUALLY TRANSCRIBED RESULTS * Lipid profile (03/21/2024) External Cholesterol 153 MANUALLY TRANSCRIBED RESULTS External Cholesterol:Hdl 3.6 MANUALLY TRANSCRIBED RESULTS External Hdl Cholesterol 43 MANUALLY TRANSCRIBED RESULTS External Ldl (Calc) 82 MANUALLY TRANSCRIBED RESULTS External Triglycerides 140 MANUALLY TRANSCRIBED RESULTS Ldl/Hdl Ratio 1.9 MANUAL LY TRANSCRIBED RESULTS us Scanning Provider External LAB BLOOD ORDERABLES Edited Result - Final Performing Organization Address City/[facility]/ZIP Co de Phone Number MANUALLY TRANSCRIBED RESULTS documented in this encounter Visit Diagnoses Not on filedocumented in this encounter Care Teams Iuss Analyst Relationship Specialty Start Date End Date Services, [facility] [address] [place], [place] PCP - General Family Medicine 11/03/24 documented as of this encounter
--- OUTSIDE RECORDS SUMMARY | 2025-04-17 12:57 | XMS_ITS | Encounter Summary ---
Author Organization [facility] Address [address] [facility] [place] [address] Care Team Providers Care Cupola Repairer Name Role Phone Judy Caal Unavailable Unavailable Encounter Details Date Type Department Care Team (Late st Contact Info) Description 01/03/2025 Abstract [facility] [place] [address] Tsering Willingham MA Social History Tobacco [...] 04/25/2025 11:10 AM EDT Routine LIA[facility] HEAD [address] [place] [place] [address] [place] [address] Caeasr Broderick DO [address] [place], [place] [id number] 12/16/2025 3:00 PM EDT Office Visit [facility] [address] [place] [address] Caesar Broderick DO [address] [place], [place] [address] documented as of this encounter Visit Diagnoses Not on filedocumented in this encounter Care Teams Cupola Repairer Relationship Specialty Start Date End Date Judy Caal PCP - [facility] MEDICAL APPARATUS MODEL MAKER 02/20/24 documented as of this encounter
--- OUTSIDE RECORDS SUMMARY | 2025-04-17 12:57 | XMS_ITS | Encounter Summary ---
Author Organization [facility] Address [address] [place] [address] Care Team Providers Care Operations Clerk Name Role Phone Judy Caal Unavailable Unavailable Encounter Details Date Type Department Care Team (Late st Contact Info) Description 12/25/2024 Orders Only LIANA HEAD [facility] [employer] [place] [place] [address] Luz Marina Velez LPN [address] [facility] [place], [facility]11 Social History Tobacco Use Types Packs/Day Years [...] 04/25/2025 11:10 AM EDT Routine LIANA HEAD [facility] [employer] [place] [address] Caesar Broderick, DO [address] [place], [place] [address] 12/16/2025 3:00 PM EDT Office Visit L[facility]NA HEAD [address] [place] [address] Caesar Broderick DO [address] [place], [place] [address] documented as of this encounter Procedures Procedure Name Priority Date/Time Associated Diagnosis Comments PAP SMEAR Routine 12/10/2024 12:00 AM EDT documented in this encounter Results * Pap Smear (12/10/2024 12:00 AM EDT) Swab Cervical swab / Unknown us Davie Nurse [facility] Ob LAB CYTOLOGY ORDERABLES Final Result EXTERNAL LAB documented in this encounter Visit Diagnoses Not on filedocumented in this encounter Care Teams Operations Clerk Relationship Specialty Start Date End Date Judy Caal PCP - [facility] TUBER MACHINE OPERATOR 02/20/24 documented as of this encounter
--- OUTSIDE RECORDS SUMMARY | 2025-04-17 12:58 | XMS_ITS | Encounter Summary ---
Author Organization [facility] Address [address] [place] [address] Care Team Providers Care Tire Duster Name Role Phone Judy Caal Unavailable Unavailable Encounter Details Date Type Department Care Team (Late st Contact Info) Description 04/25/2024 Clinisync Result Encounter [facility] External Department Unsolicited Israel Broderick, DO [address] [place], [facility]11 Social History Tobacco Use Types Packs/Day Years [...] 04/25/2025 11:10 AM EDT Routine LIANA HEAD [facility] [place] [address] Israel Broderick, DO [address] [place], [place] [id number] 12/16/2025 3:00 PM [place] [address] Israel Broderick, DO [address] [place], [place] [id number] documented as of this encounter Procedures Procedure Name Priority Date/Time Associated Diagnosis Comments US PELVIS W/ TRANSVAGINAL 04/25/2024 6:34 AM EDT documented in this encounter Results * US PELVIS W/ TRANSVAGINAL (04/25/2024 6:34 AM EDT) Anatomical Region Laterality Modality Other 04/25/2024 6:34 AM EDT Narrative 04/25/2024 6:37 [place] [address] Ultrasound Report Signed Patient: ELLEN RAMIRES MR#: [id number] : 1990 Acct:[id number] Age/Sex: 34 / F ADM Date: 04/24/24 Loc: US Attending Dr: Israel Broderick D.O. Ordering Physician: Israel Broderick D.O. Date of Service: 04/24/24 Procedure(s): US pelvis w/ transvaginal Accession Number(s): [id number] cc: Israel Broderick D.O.; Sabiha Aviles [place] [address] Patient Name: ELLEN RAMIRES MRN: [id number] date: 1990 Sex: F Assigned Patient Location: Current Patient Location: Accession/Order Number: [id number] Exam Date: 04/24/2024 14:00 Report Date: 04/25/2024 [...] M.D. Signed By: 04/25/2437 DD/ 3 TD/TT: Diamond Grinder: Procedure Note Radiology, Radiologist, MD - 04/25/2024 [place] [address] Ultrasound Report Signed Patient: ELLEN RAMIRES R#: [id number] : 1990Acct:[id number] Age/Sex: 34 / FADM Date: 04/24/24 Loc: US Attending Dr: Israel Broderick D.O. Ordering Physician: Israel Broderick D.O. Date of Service: 04/24/24 Procedure(s): US pelvis w/ transvaginal Accession Number(s): [id number] cc: Israel Broderick D.O.; Sabiha Aviles ELECTRIC SHAVER MECHANIC The [place] [id number] Patient Name: ELLEN RAMIRES MRN: [id number] date: 1990 Sex: F Assigned Patient Location: Current Patient Location: Accession/Order Number: [id number] Exam Date: 04/24/2024 14:00 Report Date: 04/25/2024 [...] M.D. Signed By:04/25/24 0637 DD/ 0634 TD/TT: Diamond Grinder: us Israel Davie DO [facility] Final Result documented in this encounter Visit Diagnoses Not on filedocumented in this encounter Care Teams Tire Duster Relationship Specialty Start Date End Date Judy Caal PCP - [facility] 02/20/24 documented as of this encounter
--- OUTSIDE RECORDS SUMMARY | 2025-04-17 12:58 | XMS_ITS | Encounter Summary ---
Author Organization [facility] Address [address] [place] [address] Care Team Providers Care Professor Of Nursing Name Role Phone Judy Caal Unavailable Unavailable Encounter Details Date Type Department Care Team (Late st Contact Info) Description 06/21/2024 Abstract LIANA HEAD [facility] [place] [address] Caesar Broderick DO [address] [place], [facility]11 Social History Tobacco Use Types Packs/Day Years [...] Routine LIANA HEAD [facility] [place] [address] Caesar Broderick DO [address] [place], [facility]11 12/16/2025 3:00 PM EDT Office Visit LIANA HEAD [address] [place] [address] Caesar Broderick DO [address] [place], [facility]11 documented as of this encounter Visit Diagnoses Not on filedocumented in this encounter Care Teams Professor Of Nursing Relationship Specialty Start Date End Date Judy Caal PCP - [facility] CLAY PROCESSING FACTORY WORKER 02/20/24 documented as of this encounter
--- OUTSIDE RECORDS SUMMARY | 2025-04-17 12:58 | XMS_ITS | Clinical Summary ---
Author Organization [facility] tem Address [id number] [address] [place] [address] Care Team Providers Care Pan Devulcanizer Name Role Phone [facility], [facility] Primary Care Provider Allergies No known active [...] Narrative COPATH - 11/24/2022 1:05 PM EDT [facility] [address] [place] [address] Gynecologic Cytology Consultation Patient Name:ELLEN RAMIRES:1990 (Age: 32)Gender:FTaken:11/23/2022Reported:4/5/2023Physician(s):Bethany Raymundo CNP ([phone])Copy To: Rec. #:[id number]: #[id number] Final Cytologic Interpretation ThinPrep Pap Test (Cervical): Satisfactory for evaluation. A transformation zone component is present. NEGATIVE FOR INTRAEPITHELIAL LESION OR MALIGNANCY. [facility]/11/24/2022 Interpretation performed at [place], [address] [place] [id number], License number: [id number]. Electronically Signed Out By ZORA Walter(ASCP) Date of Last Menstrual Period: (None Given) Other Clinical Conditions: Z12.4 Screening for malignant neoplasm of cervix Z11.51 Screening for HPV Source of Specimen ThinPrep Pap Test (Cervical) Thin Prep Pap (VARNISH FINISHER) Fee Code(s): G0145 us Bethany Raymundo HOOP PUNCHER-PROP AND EFFECTS DESIGNER PATHOLOGY/CYTOLOGY JYOTSNA STANLEY Final Result COPATH from Last 3 Months or Most Recently Relevant to Health Maintenance Insurance [employer] Care Teams Pan Devulcanizer Relationship Specialty Start Date End Date Services, [facility] [address] [facility] [address] [facility] [place], [place] PCP - General Family Medicine 11/03/24
--- OUTSIDE RECORDS SUMMARY | 2025-04-17 12:58 | XMS_ITS | Encounter Summary ---
Author Organization [facility] Address [address] [facility] [place] [address] Care Team Providers Care Missile And Missile Checkout Technician Name Role Phone Judy Caal Unavailable Unavailable Encounter Details Date Type Department Care Team (Late st Contact Info) Description 07/05/2024 Abstract LIANA HEAD [address] [place] [address] [place] [address] Karoline Casillas LPN Social History Tobacco [...] 04/25/2025 11:10 AM EDT Routine LIANA HEAD [address] [place] [address] [place] [address] Caesar Broderick DO [address] [place], [facility] 12/16/2025 3:00 PM EDT Office Visit LIANA HEAD [address] [place] [address] Caesar Broderick DO [address] [place], [place] [id number] documented as of this encounter Visit Diagnoses Not on filedocumented in this encounter Care Teams Missile And Missile Checkout Technician Relationship Specialty Start Date End Date Judy Caal PCP - [facility] SWIFT TENDER 02/20/24 documented as of this encounter
--- OUTSIDE RECORDS SUMMARY | 2025-04-17 12:58 | XMS_ITS | Encounter Summary ---
Author Organization [facility] Address [address] [place] [address] Care Team Providers Care Coconut Candy Maker Name Role Phone Judy Caal Unavailable Unavailable Encounter Details Date Type Department Care Team (Late Contact Info) Description 04/11/2025 Bamboo flowsheet LIANA HEAD [address] [place] [address] Caesar Broderick DO [address] [place], [facility]11 Social History Tobacco Use Types Packs/Day Years [...] Info) Description 04/25/2025 11:10 AM EDT Routine [facility] HEAD [address] [place] [address] Caesar Broderick DO [address] [place], [place] [id number] 12/16/2025 3:00 PM EDT Office Visit LIANA HEAD [address] [place] [address] Caesar Broderick, DO [address] [place] [address] Dr [address] [place] [id number] documented as of this encounter Visit Diagnoses Not on filedocumented in this encounter Care Teams Coconut Candy Maker Relationship Specialty Start Date End Date Judy Caal PCP - [facility] [place] MAGENTO WEB DEVELOPER 02/20/24 documented as of this encounter
--- OUTSIDE RECORDS SUMMARY | 2025-04-17 12:58 | XMS_ITS | Patient Health Record ---
Author Organization [facility] vices Address [address] [place], [place] [id number] Care Team Providers Care Associate Media Director Name Role Phone Sabiha Aviles Primary Care Provider [phone] Noelle Chris Unavailable [phone] MarleniLima sparkssa Unavailable [phone] Allergies No Known Allergies Results Component Value Reference Range Notes URINALYSIS - REFLEX CULTURE/ SENS Reviewed date:11/13/2024 11:59:49 AM Interpretation: Performing Lab: Notes/Report: PH 6.5 5.0-8.0 SP GRAVITY 1.006 1.005-1.030 APPEARANCE CLEAR CLEAR COLOR YELLOW YELLOW PROTEIN NEGATIVE NEGATIVE GLUCOSE NEGATIVE NEGATIVE KETONES NEGATIVE NEGATIVE BILIRUBIN NEGATIVE NEGATIVE OCCULT BLOOD NEGATIVE NEGATIVE LEUKO DANIEL NEGATIVE NEGATIVE NITRITE NEGATIVE NEGATIVE UROBILINOGEN 0.2 <2 mg/dL UNLESS OTHERWISE INDICATED, ALL TESTING PERFORMED AT: [facility] [address] [place] [address] FLIGHT ENGINEER: BARBARA DASH M.D. CLIA NUMBER [id number] CAP ACCREDITATION AUID [id number] Urine Dip Reviewed date:11/12/2024 05:53:24 PM Interpretation: Performing Lab: Notes/Report: Bilirubin - Occult Blood - Glucose - Ketones - WBC - Nitrite - Ph 6.0 Protein - Specific [place] 1.010 Color yellow Appearance clear LIPID PANEL WITH REFLEX TO D IRECT [...] high risk >7.1 >5.6 CHOL/HDL 3.8 2.0-4.5 TSH + FREE T4 PROFILE Reviewed date:02/08/2025 08:56:14 AM Interpretation: Performing Lab: Notes/Report: TSH 1.69 0.270-4.200 uIU/mL The [employer] (HUGO) recommends the following reference ranges for TSH levels during : First trimester: 0.1 to 2.5 mIU/L Second trimester: 0.2 to 3.0 mIU/L Third trimester: 0.3 to 3.0 mIU/L FREE T4 1.12 0.80-1.90 ng/dL COMPREHENSIVE METABOLIC PANE L WITH GFR Reviewed [...] 6.5 6.0-8.3 g/dL ALBUMIN 4.2 3.5-5.2 g/dL CBC NO DIFF Reviewed date:02/08/2025 11:13:49 AM Interpretation: Performing Lab: Notes/Report: WBC 13.8 3.6-11.0 THDS/CMM RBC 4.25 3.80-5.20 MILL/CMM HGB 13.3 11.9-16.0 G/DL HCT 40.0 35-47 % MCV 94 75-100 fL MCH 31.3 26.0-33.0 pg MCHC 33.3 32.0-35.0 g/dl RDW 12.8 11.2-14.8 % PLATELET 301 140-440 THOUS/CMM VITAMIN D 25 HYDROXY Reviewed date:02/08/2025 09:10:44 AM Interpretation: Performing Lab: Notes/Report: VITAMIN D, 25 HYDROXY 22.6 30.0-100.0 ng/mL 25-OH VITAMIN D INTERPRETATION Deficiency.... <20.0 ng/ml Insufficiency..20.0-29.0 ng/ml Sufficiency....30.0-100.0 ng/ml Possible Toxicity...>150 ng/ml UNLESS OTHERWISE INDICATED, ALL TESTING PERFORMED AT: [facility] [address] [place] [address] FLIGHT ENGINEER: BARBARA DASH M.D. CLIA NUMBER [id number] CAP ACCREDITATION AUID [id number] Reason For Referral No Information Medications Medication SIG (Take, Route, Frequency, Duration) Notes Start Date End Date Status Omeprazole 20 MG 1 capsule 30 minutes before morning meal Orally Once a day; Duration: 30 day(s) 01/24/2024 Not-Taking Cholecalciferol 10 MCG (400 UNIT) 2 capsules Orally Once a day PA submitted 02/0801/26/2024 Not-Taking Sertraline HCl 50 MG 1 tablet Orally Once a day; Duration: 30 days dose increase on 12/04/2024 11/06/2024 Active metFORMIN HCl ER 500 MG 1 tablet with evening meal Orally Once a day; Duration: 30 days Not-Taking Clomid 50 MG 1 tablet Oral Once a day; Duration: 5 days Not-Taking Social History Tobacco Use: [...] data 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 Stress is when someone feels tense, nervous, anxious, or can't sleep at night because their mind is troubled Quite a bit patient entered data In the past year have you sp ent more than 2 nights in a row in a assisted, snf, chcf center, or juvenile correctional facility? No patient [...] Problem Status W/U Status Risk Notes Problem Exercises teaching, guidance, and counseling (646964876) Exercise counseling (Z71.82) Active confirmed Problem Missed period (59918875) Missed period (N92.6) Active confirmed Problem Vitamin D deficiency (74589399) Vitamin D deficiency (E55.9) Active confirmed Problem Burning sensation of vagina (finding) (620311934) Vaginal burning (N94.9) Active confirmed Problem Anxiety depression (478693715) Anxiety with depression (F41.8) Active confirmed Problem Dietary management surveillance (530365215) Dietary counseling (Z71.3) Active confirmed Problem Female infertility (9119374) Female fertility problem (N97.9) Active confirmed Vital [...] > Encounters Encounter Location Date Provider Diagnosis [address] [id number] [facility] with an xiety F41.8 and Hospital discharge follow-up Z09 [address] [id number] 11/[facility] Dysuria R30.[address] [id number] 12/04[facility] Anxiety with depre ssion F41.[address] [id number] 02/05/2025 [facility] Encounter for well ness examination Z00.00 ; Screening for cardiovascular condition Z13.6 ; Exercise counseling Z71.82 ; Nutritional counseling Z71.3 ; Screening for thyroid disorder Z13.29 and Vitamin D deficiency E55.9 [facility] [address] [place], [place] [id number] 06/24/2024 Judy Yepez Assessments Encounter Date Diagnosis [...] Insured Coverage Start Date [facility]age End Date [facility] [address] [place] [address] [id number] [id number] [employer] Self - patient is the insured 3 Medicaid [employer] after [place] [address] [place] [address] [id number] Chayo Ramires Self - patient is the insured 3 Medical (General) History Medical History History ICD Code anxiety depression Surgical History Surgery Date(Month/Year) [place] teeth laparoscopy- endometriosis
--- OUTSIDE RECORDS SUMMARY | 2025-04-17 12:58 | XMS_ITS | Clinical Summary ---
Author Organization [facility] Address [address] [place] [address] Phone Care Team Providers Care Battalion Fire Chief Name Role Phone June Trinidad LPN Unavailable Unavailable Allergies No known active allergies Medications metFORMIN (Glucophage) 500 mg tablet 1 tablet (500 mg). 05/22/2024 Active Social History Tobacco Use Types Packs/Day Years [...] patient's age to complete this topic Insurance [address] [place] [id number] [employer] MEDICAID [address] [place] [id number] [facility] [address] Care Teams Battalion Fire Chief Relationship Specialty Start Date End Date June Trinidad LPN Licensed Practical Nurse Reproductive Endocrinology and Infertility 01/01/25
--- OUTSIDE RECORDS SUMMARY | 2025-04-17 12:58 | XMS_ITS | Encounter Summary ---
Author Organization [facility] Address [address] [place] [address] Care Team Providers Care Caterpillar Mechanic Name Role Phone Judy Caal Unavailable Unavailable Encounter Details Date Type Department Care Team (Late st Contact Info) Description 06/01/2024 Abstract LIA[facility] [place] [address] Caesar Broderick DO [address], [facility] Social History Tobacco Use Types [...] 04/25/2025 11:10 AM EDT Routine [facility]IA[facility] [place] [address] Caesar Broderick DO [address], [facility] 12/16/2025 3:00 PM EDT Office Visit LIANA HEAD [facility] [place] [address] Caesar Broderick DO [address], [facility] documented as of this encounter Visit Diagnoses Not on filedocumented in this encounter Care Teams Caterpillar Mechanic Relationship Specialty Start Date End Date Judy Caal PCP - [facility] FINGER BUFF SEWER 02/20/24 documented as of this encounter
--- OUTSIDE RECORDS SUMMARY | 2025-04-17 12:58 | XMS_ITS | Encounter Summary ---
Author Organization [facility] Address [address] [place] [address] Care Team Providers Care Studio Technician Name Role Phone Judy Caal Unavailable Unavailable Encounter Details Date Type Department Care Team (Late st Contact Info) Description 04/10/2024 Abstract [facility]IANA [facility] [place] [address] Caesar Broderick DO [address], [facility] Social History Tobacco Use Types Packs/Day [...] 04/25/2025 11:10 AM EDT Routine LIA[facility] [place] [address] Caesar Broderick DO [address], [facility] 12/16/2025 3:00 PM EDT Office Visit LIANA HEAD [address] [place] [address] Caesar Broderick DO [address], [facility] documented as of this encounter Visit Diagnoses Not on filedocumented in this encounter Care Teams Studio Technician Relationship Specialty Start Date End Date Judy Caal PCP - [facility] SODIUM METHYLATE OPERATOR 02/20/24 documented as of this encounter
--- OUTSIDE RECORDS SUMMARY | 2025-04-17 12:58 | XMS_ITS | Encounter Summary ---
Author Organization [facility] Address [address] [place] [address] Care Team Providers Care Reference And Instruction Librarian Name Role Phone Judy Caal Unavailable Unavailable Encounter Details Date Type Department Care Team (Late st Contact Info) Description 06/01/2024 Abstract LIANA HEAD [facility] [place] [address] Caesar Broderick DO [address], [facility]11 Social History Tobacco Use Types Packs/Day [...] 04/25/2025 11:10 AM EDT Routine LIANA HEAD [facility] [place] [address] Caesar Broderick DO [address], [facility] 12/16/2025 3:00 PM EDT Office Visit LIANA HEAD [facility] [place] [address] Caesar Broderick DO [address], [facility] documented as of this encounter Visit Diagnoses Not on filedocumented in this encounter Care Teams Reference And Instruction Librarian Relationship Specialty Start Date End Date Judy Caal PCP - [facility] RAILROAD DINING CAR STEWARDESS 02/20/24 documented as of this encounter
--- OUTSIDE RECORDS SUMMARY | 2025-04-17 13:13 | XMS_ITS | CCD ---
Author Organization [facility] Care Team Providers Care Paper Colorer Name Role Phone Pinky Singh Unavailable Judy Caal Unavailable Unavailable Unavailable Primary Care Provider Unavailabl e Services, [facility] Primary Care Provider SABIHA DELEON Referring Unavailable SERVICES, [facility] Primary Care Unava ilable TUCKER FRAIRE Attending Unavailable SABIHA DELEON Referring Unavailable SERVICES, [facility] Primary Care Unava ilable SERVICES, [facility] Primary Care Unava ilable MILLIE VILLAGRAN Attending Unavailable Israel Broderick DO Attending Provider DavieIsrael koch Attending Unavailable Israel Broderick Admitting Unavailable White BUYING INTERN, June A Unavailable Unavailable ROBBIE LOPEZ Attending Unavailable DAVIE, ISRAEL Attending Unavailable DAVIE, ISRAEL Attending Unavailable DAVIE, ISRAEL Attending Unavailable DAVIE, ISRAEL Attending Unavailable DAVIE, ISRAEL Attending Unavailable DAVIE, ISRAEL Attending Unavailable DAVIE, ISRAEL Attending Unavailable DAVIE, ISRAEL Attending Unavailable Medications Current Medications Medication Drug Class(es) Dates Sig (Normalized) Sig (Original) amoxicillin 875 mg / clavulanate 125 mg oral tablet (2 sources) Penicillin-class Antibacterial Start: 11-24-2023 take 1 tablet by mouth twice daily Amoxicillin-Pot Clavulanate 875-125 mg tablet Active 1 TAB PO Twice daily November 24, 2023 12:00am cholecalciferol 0.01 mg oral tablet (20 sources) Vitamin D Start: 01-26-2024 cholecalciferol 10 mcg (400 unit) tablet 2 tablets (800 Units total) in the morning. 01/26/2024 Active Start: 01-26-2024 End: 05-03-2024 Cholecalciferol 10 MCG (400 UNIT) chewable tablet 1 (one) time each day at the same time 01/26/2024 05/03/2024 Discontinued (Therapy completed) End: 03-28-2025 take 2 tablets by mouth once daily D-400 10 MCG (400 UNIT) tablet TAKE 2 TABLETS BY MOUTH ONCE DAILY FOR 30 DAYS 03/28/2025 Discontinued clomiPHENE citrate 50 mg oral tablet (3 sources) Estrogen Agonist/Antagonist Start: 11-12-2024 End: 11-17-2024 take 2 tablets by mouth once daily clomiPHENE (Clomid) 50 MG tablet Indications: Encounter for fertility planning , PCOS (polycystic ovarian syndrome) , Fallopian tube disorder Take 2 tablets (100 mg) by mouth Daily for 5 days 10 tablet 11/12/2024 11/17/2024 Active fluticasone propionate 0.05 mg/actuat metered dose nasal spray (4 sources) Corticosteroid Start: 11-24-2023 End: 04-10-2024 fluticasone (Flonase) 50 MCG/ACT nasal spray Daily 11/24/2023 04/10/2024 Discontinued (Other) Start: 11-24-2023 take 1 spray(s) nasa l route once daily Fluticasone Propionate 50 mcg/actuation spray,suspension Active 2 SPRAY INTRANASAL Daily November 24, 2023 12:00am administer into each nostril labetalol hydrochloride 200 mg oral tablet (2 sources) beta-Adrenergic Noah Start: 04-11-2025 End: 05-11-2025 take 1 tablet by mouth once in the morning labetalol (Normodyne) 200 MG tablet Indications: Second trimester (HHS-HCC) , Gestational hypertension, antepartum (HHS-HCC) Take 1 tablet (200 mg) by mouth in the morning and 1 tablet (200 mg) before bedtime. 60 tablet 04/11/2025 05/11/2025 Active magnesium oxide 400 mg oral tablet (5 sources) Start: 03-28-2025 End: 04-27-2025 take 1 tablet by mouth once daily magnesium oxide (Mag-Ox) 400 MG tablet Indications: Second trimester (HHS-HCC) , Acute nonintractable headache, unspecified headache type Take 1 tablet (400 mg) by mouth Daily 30 tablet 6 03/28/2025 04/27/2025 Active metFORMIN hydrochloride 500 mg oral tablet (20 sources) Biguanide Start: 05-22-2024 metFORMIN (Glucophage) 500 mg tablet 1 tablet (500 mg). 05/22/2024 Active Start: 04-10-2024 End: 03-01-2025 take 1 tablet by mouth every twenty-four hours at mealtime metFORMIN XR (Glucophage-XR) 500 MG 24 hr tablet Indications: PCOS (polycystic ovarian syndrome) , Abnormal uterine bleeding (AUB) Take 1 tablet (500 mg) by mouth in the evening. Take with meals Do not crush, chew, or split. 30 tablet 11 04/10/2024 03/01/2025 Discontinued (Therapy completed) predniSONE 20 mg oral tablet (2 sources) Start: 11-24-2023 take 1 tablet by mouth twice daily Prednisone 20 mg tablet Active 20 MG PO Twice daily 10 November 24, 2023 12:00am sertraline 25 mg oral tablet (20 sources) Serotonin Reuptake Inhibitor Start: 11-06-2024 take 2 tablets by mouth once daily sertraline (Zoloft) 25 MG tablet Take 50 mg by mouth 1 (one) time each day at the same time 11/06/2024 Active Start: 11-06-2024 sertraline (Zo loft) 25 MG tablet 1 (one) time each [...] Drug Class(es) Dates Sig (Normalized) Sig (Original) omeprazole 20 mg delayed release oral capsule (20 sources) Proton Pump Inhibitor Start: 01-24-2024 End: 03-28-2025 take 1 capsule by mouth in the morning omeprazole (PriLOSEC) [address] capsule Take 20 mg by mouth in the morning. 01/24/2024 03/28/2025 Discontinued Problems Active Problems Problem Classification Problem Date Documented Date Episodic/Chronic Abdominal pain (3 sources) Pain in female pelvis; Translations: [Pelvic and perineal pain] 05-03-2024 Episodic Contraceptive and procreative management (6 sources) Patient encounter status; Translations: [Encounter for other procreative management] 07-23-2024 Episodic Headache; including migraine (4 sources) Acute headache; Translations: [Acute nonintractable headache, unspecified headache type] 03-28-2025 Episodic Hypertension complicating ; childbirth and the puerperium (4 sources) Hypertension AND/OR vomiting complicating childbirth AND/OR puerperium; Translations: [Gestational [-induced] hypertension without significant proteinuria, unspecified trimester] 04-11-2025 Episodic Immunizations and screening for infectious disease (4 sources) Contact with and (suspected) exposure to other viral communicable diseases; Translations: [Contact with or exposure to other viral diseases] Episodic Menstrual disorders (2 sources) Amenorrhea; Translations: [Amenorrhea, unspecified] 03-01-2025 Chronic Nonspecific chest pain (3 sources) Chest pain, unspecified; Translations: [Chest pain] Onset: 11-03-2024 Episodic Nutritional deficiencies (1 source) Vitamin D deficiency; Translations: [Vitamin D deficiency, unspecified] 03-01-2025 Chronic Other aftercare (2 sources) Postoperative visit; Translations: [Encounter for other specified surgical aftercare] 06-11-2024 Episodic Other and unspecified benign neoplasm (1 source) Pigmented skin lesion ; Translations: [Melanocytic nevi, unspecified] 12-18-2024 Episodic Other circulatory disease (1 source) H/O: hypertension; Translations: [Personal history of other diseases of the circulatory system] 03-01-2025 Episodic Other endocrine disorders (20 sources) Polycystic ovary syndrome; Translations: [Polycystic ovarian syndrome] Onset: 07-30-2024 07-23-2024 Chronic Other female genital disorders (4 sources) Abnormal uterine bleeding; Translations: [Abnormal uterine and vaginal bleeding, unspecified] 04-10-2024 Chronic Other female genital disorders (2 sources) Abnormal uterine and vaginal bleeding, unspecified; Translations: [Abnormal uterine and vaginal bleeding, unspecified] Onset: 01-03-2025 Chronic Other and delivery including normal (6 sources) ; Translations: [Encounter for supervision of normal , unspecified, unspecified trimester] 03-01-2025 Episodic Other upper respiratory infections (1 source) Chronic sinusitis, unspecified; Translations: [Unspecified sinusitis (chronic)] 11-24-2023 Chronic Other upper respiratory infections (3 sources) Sore throat symptom; Translations: [Acute pharyngitis, unspecified] 11-24-2023 Episodic Residual codes; unclassified (2 sources) History of laparoscopy; Translations: [Other specified postprocedural states] 06-11-2024 Episodic Residual codes; unclassified (1 source) Gestation period, 9 weeks; Translations: [9 weeks gestation of ] 03-01-2025 Episodic Residual codes; unclassified (2 sources) Gestation period, 13 weeks; Translations: [13 weeks gestation of ] 03-28-2025 Episodic Residual codes; unclassified (2 sources) Gestation period, 15 weeks; Translations: [15 weeks gestation of ] 04-11-2025 Episodic Unclassified (1 source) New Patient Onset: 03-13-2024 Urinary tract infections (3 sources) Acute cystitis without hematuria; Translations: [Acute cystitis] Onset: 11-03-2024 11-12-2024 Episodic Past or Other Problems Problem Classification Problem Date Documented Da te Episodic/Chronic Cardiac dysrhythmias (3 sources) Palpitations; Translations: [Palpitations] Onset: 03-13-2024 03-13-2024 Episodic Other female genital disorders (20 sources) Fallopian tube disorder; Translations: [Noninflammatory disorder of ovary, fallopian tube and broad ligament, unspecified] Onset: 07-30-2024 05-03-2024 Episodic Unclassified (2 sources) Patient encounter status 11-12-2024 Unclassified (1 source) Onset: 01-03-2025 01-03-2025 Viral infection (1 source) COVID-19 Results Test Name Value Interpretation Reference Range Facility Urinalysis macro (dipstick) panel (U)on 04-11-2025 Bilirubin, UA Negative Negative - 4(70) +++ mg/dL [facility] Blood, UA Negative Negative - 50 Surjit/mcL [facility] Clarity, UA Clear [facility] re Color, UA Yellow [facility] Glucose, UA Negative Negative - 2000(110) ++++ mg/dL [facility] Interpretation and review of laboratory results Normal [facility] Ketones, UA Negative Negative - 160(16) ++++ mg/dL [facility] Leukocytes, UA Negative Negative - 500+++ Kaleigh/mcL [facility] Nitrite, UA Negative Negative - Positive [facility] pH, UA 6 5 - 9 [facility] Protein, UA Negative Negative - 1999(20) ++++ mg/dL [facility] Spec Grav, UA 1.015 1 - 1.03 [facility] Urobilinogen, UA 1.0 0.2 - 12 mg/dL [facility] Urinalysis macro (dipstick) panel (U)on 03-28-2025 Bilirubin, UA Negative Negative - 4(70) +++ mg/dL [facility] Blood, UA Negative Negative - 50 Surjit/mcL [facility] Clarity, UA Clear [facility] re Color, UA Yellow [facility] Glucose, UA Negative Negative - 1999(110) ++++ mg/dL [facility] Interpretation and review of laboratory results Abnormal [facility] Ketones, UA Negative Negative - 160(16) ++++ mg/dL [facility] Leukocytes, UA Positive Negative - 500+++ Kaleigh/mcL [facility] Comment on above: 2+ Nitrite, UA Negative Negative - Positive [facility] pH, UA 6 5 - 9 [facility] Protein, UA Negative Negative - 1999(20) ++++ mg/dL [facility] Spec Grav, UA 1.02 1 - 1.03 [facility] Urobilinogen, UA 1.0 0.2 - 12 mg/dL [facility] ALL CBC WITH AUTO DIFFon BASOPHILS ABSOLUTE AUTO 0.1 [facility] Basophils/100 WBC (Bld) 0.5 % 0.2 - 2.0 % [facility] Eosinophils/100 WBC (Bld) 4 % 0.9 - 7.0 % [facility] Erythrocyte distribution width (RBC) [Ratio] 12.2 % 11.0 - 15.0 % [facility] Hematocrit (Bld) [Volume fraction] 36.4 % 36.0 - 48.0 % [facility] Hemoglobin (Bld) [Mass/Vol] 12.4 g/dL 12.0 - 16.0 g/dL [facility] IMMATURE GRANULOCYTES ABS AUTO 0.08 High [facility] Immature granulocytes/100 WBC (Bld) 0.6 % High 0.0 - 0.5 % [facility] Interpretation and review of laboratory results Abnormal [facility] LYMPHOCYTES ABSOLUTE AUTO 2.6 [facility] Lymphocytes/100 WBC (Bld) 18.4 % Low 20.5 - 60.0 % [facility] MCH (RBC) [Entitic mass] 31.5 pg 26.7 - 34.0 pg [facility] MCHC (RBC) [Mass/Vol] 34.1 g/dL 29.9 - 35.2 g/dL [facility] MCV (RBC) [Entitic vol] 92.4 fL 81.0 - 99.0 fL [facility] MONOCYTES ABSOLUTE AUTO 0.6 [facility] Monocytes/100 WBC (Bld) 4.3 % 1.7 - 12.0 % [facility] NEUTROPHILS ABSOLUTE AUTO 10.1 High [facility] Neutrophils/100 WBC (Bld) 72.2 % 43.0 - 75.0 % [facility] Platelet mean volume (Bld) [Entitic vol] 10.2 fL 9.5 - 13.5 fL [facility] EO # 0.6 [facility] TBH PLT 261 [facility] e TB RBC 3.94 Low [facility] TBH WBC 13.9 High [facility] HCG ( test) Ql (U)o n 03-01-2025 Interpretation and review of laboratory results Abnormal [facility] Preg Test, Ur Positive Negative [facility] US OB TRANSVAGINALon 025 US OB TRANSVAGINAL FINDINGS: A single intrauterine gestational sac is [...] 3.5 cm. Small amount of pelvic fluid. IMPRESSION: [...] new finding. TRANSCRIBED BY: ELECTRONICALLY SIGNED BY: Mariuzs Altamirano MD Normal Not Available Comment on above: Order Comment: US OB TRANSVAGINAL No LMP recorded. Urinalysis macro (dipstick) panel (U)on 03-01-2025 Bilirubin, UA Negative Negative - 4(70) +++ mg/dL [facility] Blood, UA Negative Negative - 50 Surjit/mcL [facility] Clarity, UA Clear [facility] re Color, UA Yellow [facility] e Glucose, UA Negative Negative - 1999(110) ++++ mg/dL [facility] Interpretation and review of laboratory results Normal [facility] Ketones, UA Negative Negative - 160(16) ++++ mg/dL [facility] Leukocytes, UA Negative Negative - 500+++ Kaleigh/mcL [facility] Nitrite, UA Negative Negative - Positive [facility] pH, UA 7 5 - 9 [facility] e Protein, UA Negative Negative - 1999(20) ++++ mg/dL [facility] Spec Grav, UA 1.005 1 - 1.03 [facility] Urobilinogen, UA 0.2 0.2 - 12 mg/dL [facility] ALL PROGESTERONEon PROGESTERONE 8.7 ng/mL . [facility] are Comment on above: Follicular phase 0.1 - 0.9 Luteal phase 1.8 - 23.9 Ovulation phase 0.1 - 12.0 First trimester 11.0 - 44.3 Second trimester 25.4 - 83.3 Third trimester 58.7 - 214.0 Postmenopausal 0.0 - 0.1 Performed at: - [facility] [id number] Dye Tub Operator: Yobany Blount PhD, Phone: [phone] [facility] RE[facility] FOR LAB CO RPon 12-26-2024 PATHOLOGY REQUEST FOR LAB RENA [facility] Comment on above: See report. Scanned copy available in EMR. SKIN SPECIMEN [facility] Health[facility] e ALL PROGESTERONEon PROGESTERONE 37.9 ng/mL . [facility] are Comment on above: Follicular phase 0.1 - 0.9 Luteal phase 1.8 - 23.9 Ovulation phase 0.1 - 12.0 First trimester 11.0 - 44.3 Second trimester 25.4 - 83.3 Third trimester 58.7 - 214.0 Postmenopausal 0.0 - 0.1 Performed at: [facility] [id number] Dye Tub Operator: Yobany Blount PhD, Phone: [phone] [facility] Health[facility] e Pathology Request for Lab Co rpon 12-18-2024 Pathology Request for Lab Rena Normal [facility] Comment on above: Order Comment: SKIN SPECIMEN Result Comment: See report. Scanned copy available in EMR. PERFORMED BY: [facility] [address] [place] [address] PATHOLOGIST SENIOR CONSTRUCTION ESTIMATOR ANAHI TRAN M.D. Performed By: #### P ATH TO [facility] #### [facility] [address] IGP,APTIMA HPV,AGE GDLNon AGE GDLN ACOG TESTING Note . [facility] Comment on above: TESTS RESULT FLAG UN ITS REF RANGE LAB Clinician Provided Cytology Information Source.............Cervix;Endocervix No. of containers..01 ThinPrep Vial Age Algo ACOG Marjorie... FLAG LEGEND: L-Low Normal,H-High Normal,LL-Alert Low,HH-Alert High <-Panic Low,>-Panic High,A-Abnormal,AA-Critical Abnormal Performed at: 01 =[address] [address] Vonnie Woodard MD, HPV APTIMA Negative Negative [facility] Comment on above: This nucleic acid am plification test detects fourteen high- risk HPV types (16,18,31,33,35,39,45,51,52,56,58,59,66,68) without differentiation. Performed at: =[address] [id number] Dye Tub Operator: Vonnie Woodard MD, Phone: [phone] Performed at: [address] [id number] Dye Tub Operator: Vonnie Woodard MD, Phone: [phone] IGP, APTIMA HPV, RFX 16/18,45 Note . [facility] Comment on above: TESTS RESULT FLAG U NITS REF RANGE LAB DIAGNOSIS: 02 NEGATIVE FOR INTRAEPITHELIAL LESION OR MALIGNANCY. Specimen adequacy: 02 Satisfactory for evaluation. Endocervical and/or squamous metaplastic cells (endocervical component) are present. Performed by: 02 Quiana Vyas Burlesque Dancer (ASCP) . 02 Note: Note 02 The Pap smear is a screening test designed to aid in the detection of premalignant and malignant conditions of the uterine cervix. It is not a diagnostic procedure and should not be used as the sole means of detecting cervical cancer. Both false-positive and false-negative reports do occur. Test Methodology: Note 02 This liquid based ThinPrep(R) pap test was screened with the use of an image guided system. HPV Genotype Reflex Note 02 Criteria not met, HPV Genotype not performed. FLAG LEGEND: L-Low Normal,H-High Normal,LL-Alert Low,HH-Alert High <-Panic Low,>-Panic High,A-Abnormal,AA-Critical Abnormal Performed at: [address] [facility] [address] [address] Vonnie Woodard MD, BRUSH-SPATULA CERVIX ENDOCERVIX [facility] ALL PROGESTERONEon 5 PROGESTERONE 11.2 ng/mL . [facility] are Comment on above: Follicular phase 0. 1 - 0.9 Luteal phase 1.8 - 23.9 Ovulation phase 0.1 - 12.0 First trimester 11.0 - 44.3 Second trimester 25.4 - 83.3 Third trimester 58.7 - 214.0 Postmenopausal 0.0 - 0.1 Performed at: - [facility] [address] [id number] Dye Tub Operator: Yobany Blount PhD, Phone: [phone] [facility] CBC AND AUTO DIFFon 11-05-19 25 ABSOLUTE BASOPHIL 0.1 X10E9/L Normal 0.0-0.2 [facility] Comment on above: Performed By: #### C BCA, CMP, 93287-9, 18384-2, THYR #### [facility] ([id number]) [address] [place] [address], [place] [address] ABSOLUTE NEUTROPHIL 6.9 X10E9/L High 1.5-6.6 [facility] Comment on above: Performed By: #### C BCA, CMP, , 56935-1, THYR #### [facility] ([id number]) [address] [place] [address] Basophils/100 WBC (Bld) 1.1 % Normal [facility] Comment on above: Performed By: #### C BCA, CMP, , 27997-1, THYR #### [facility] ([id number]) [address] [place] [address] Eosinophils (Bld) [#/Vol] 0.3 10*3/uL Normal 0.0-0.4 [facility] Comment on above: Performed By: #### C BCA, CMP, , 12714-2, THYR #### [facility] ([id number]) [address] [place] [address] Eosinophils/100 WBC (Bld) 2.3 % Normal [facility] Comment on above: Performed By: #### C BCA, CMP, , 11822-2, THYR #### [facility] ([id number]) [address] [place] [address] Erythrocyte distribution width (RBC) [Ratio] 12.6 % Normal 11.5-15.0 [facility] Comment on above: Performed By: #### C BCA, CMP, , 58771-6, THYR #### [facility] ([id number]) [address] [place] [address] Hematocrit (Bld) [Volume fraction] 40.4 % Normal 35-47 [facility] Comment on above: Performed By: #### C BCA, CMP, 09522-8, 73270-0, THYR #### [facility] ([id number]) [address] [place] [address] Hemoglobin (Bld) [Mass/Vol] 13.7 g/dL Normal 11.7-15.5 [facility] Comment on above: Performed By: #### C BCA, CMP, , 24546-5, THYR #### [facility] ([id number]) [address] [place] [address] Lymphocytes (Bld) [#/Vol] 3.6 10*3/uL High 1.0-3.5 [facility] Comment on above: Performed By: #### C BCA, CMP, , 51026-5, THYR #### [facility] ([id number]) [address] [place] [address] Lymphocytes/100 WBC (Bld) 31.6 % Normal [facility] Comment on above: Performed By: #### C BCA, CMP, , 17306-4, THYR #### [facility] ([id number]) [address] [place] [address] MCH (RBC) [Entitic mass] 30.9 pg Normal 27-34 [facility] Comment on above: Performed By: #### C BCA, CMP, , 07469-3, THYR #### [facility] ([id number]) [address] [place] [address] MCHC (RBC) [Mass/Vol] 34.0 g/dL Normal 32-36 [facility] Comment on above: Performed By: #### C BCA, CMP, , 38476-0, THYR #### [facility] ([id number]) [address] [place] [address] MCV (RBC) [Entitic vol] 91 fL Normal 80-100 [facility] Comment on above: Performed By: #### C BCA, CMP, 46189-7, 48810-9, THYR #### [facility] ([id number]) [address] [place] [address] Monocytes (Bld) [#/Vol] 0.6 10*3/uL Normal 0-0.9 [facility] Comment on above: Performed By: #### C BCA, CMP, 16758-7, 14814-6, THYR #### [facility] ([id number]) [address] [place] [address] Monocytes/100 WBC (Bld) 5.4 % Normal [facility] Comment on above: Performed By: #### C BCA, CMP, 45840-9, 59478-2, THYR #### [facility] ([id number]) [address] [place] [address]392 Neutrophils/100 WBC (Bld) 59.6 % Normal [facility] Comment on above: Performed By: #### C BCA, CMP, 81427-5, 19543-0, THYR #### [facility] ([id number]) [address] [place] [address] Platelet mean volume (Bld) [Entitic vol] 7.9 fL Normal 7-12 [facility] Comment on above: Performed By: #### C BCA, CMP, 20155-9, 15256-7, THYR #### [facility] ([id number]) [address] [place] [address] 23027 Platelets (Bld) [#/Vol] 346 10*3/uL Normal 150-450 [facility] Comment on above: Performed By: #### C BCA, CMP, 84177-0, 96539-8, THYR #### [facility] ([id number]) [address] [place] [address] RBC COUNT 4.44 X10E12/L Normal 3.80-5.20 [facility] Comment on above: Performed By: #### Taran BCA, CMP, 69258-9, 14340-9, THYR #### [facility] ([id number]) [address] [place] [address] WBC (Bld) [#/Vol] 11.5 10*3/uL High 4.0-11.0 [facility] Comment on above: Performed By: #### C BCA, CMP, 43067-3, 44753-7, THYR #### [facility] ([id number]) [address] [place] [address] COMPREHENSIVE METABOLIC PANE [place] 11-04-2024 Albumin [Mass/Vol] 4.0 g/dL Normal 3.2-5.3 [facility] Comment on above: Performed By: #### C BCA, CMP, 01942-9, 64605-9, THYR #### [facility] ([id number]) [address] [place] [address]181 ALP [Catalytic activity/Vol] 50 U/L Normal 39-130 [facility] Comment on above: Performed By: #### C BCA, CMP, 47017-8, 11848-6, THYR #### [facility] ([id number]) [address] [place] [address] 35207 ALT [Catalytic activity/Vol] 19 U/L Normal 0-31 [facility] Comment on above: Performed By: #### C BCA, CMP, 54986-6, 74060-7, THYR #### [facility] ([id number]) [address] [place] [address]29 Anion gap [Moles/Vol] 11 mmol/L Normal 5-15 [facility] Comment on above: Performed By: #### C BCA, CMP, 53443-3, 72301-3, THYR #### [facility] ([id number]) [address] [place] [address] 44610 AST [Catalytic activity/Vol] 18 U/L Normal 0-41 [facility] Comment on above: Performed By: #### C BCA, CMP, , 19616-1, THYR #### [facility] ([id number]) [address] [place] [address] 31033 Bilirubin [Mass/Vol] 0.4 mg/dL Normal 0.3-1.2 [facility] [place] Comment on above: Performed By: #### C BCA, CMP, , 57164-8, THYR #### [facility] ([id number]) [address] [place] [address] 02568 Calcium [Mass/Vol] 9.4 mg/dL Normal 8.5-10.5 [facility] Comment on above: Performed By: #### C BCA, CMP, , 16471-7, THYR #### [facility] ([id number]) [address] [place] [address] 89618 Chloride [Moles/Vol] 106 mmol/L Normal 98-109 [facility] [place] Comment on above: Performed By: #### C BCA, CMP, , 33128-1, THYR #### [facility] ([id number]) [address] [place] [address] 95957 CO2 [Moles/Vol] 23 mmol/L Normal 22-32 [facility] Comment on above: Performed By: #### C BCA, CMP, , 85343-0, THYR #### [facility] ([id number]) [address] [place] [address] 80298 Creatinine [Mass/Vol] 0.76 mg/dL Normal 0.40-1.00 [facility] Comment on above: Result Comment: METH OD TRACEABLE TO IDMS STANDARD Performed By: #### C BCA, CMP, , 57509-8, THYR #### [facility] ([id number]) [address] [place] [address] 70698 eGFR (CKD-EPI) NON-RACE DEPENDENT >90 Normal >59 [facility] Comment on above: Result Comment: Reported eGFR is based on the CKD-EPI 2020 equation that does not use a race coefficient. Performed By: #### C BCA, CMP, 72645-9, 47088-2, THYR #### [facility] ([id number]) [address] [place] [address] 85759 Glucose [Mass/Vol] 114 mg/dL High 65-99 [facility] Comment on above: Performed By: #### C BCA, CMP, 78076-7, 16437-6, THYR #### [facility] ([id number]) [address] [place] [address] 37327 Potassium [Moles/Vol] 4.1 mmol/L Normal 3.5-5.0 [facility] Comment on above: Performed By: #### C BCA, CMP, 96979-5, 96871-7, THYR #### [facility] ([id number]) [address] [place] [address] 56568 Protein [Mass/Vol] 7.3 g/dL Normal 6.0-8.0 [facility] Comment on above: Performed By: #### C BCA, CMP, 96111-0, 55734-9, THYR #### [facility] ([id number]) [address] [place] [address] 41041 Sodium [Moles/Vol] 140 mmol/L Normal 134-146 [facility] Comment on above: Performed By: #### C BCA, CMP, 55971-0, 28384-7, THYR #### [facility] ([id number]) [address] [place] [address] 07787 Urea nitrogen [Mass/Vol] 13 mg/dL Normal 5-23 [facility] Comment on above: Performed By: #### C BCA, CMP, 01351-0, 89651-0, THYR #### [facility] ([id number]) [address] [place] [address] 66170 Fibrin D-dimer DDU (PPP) [Ma ss/Vol]on 11-04-2024 D DIMER <150 Normal <255 [facility] Comment on above: Result Comment: Results <255 ng/mL DDU: The presence of a VTE can safely be excluded with a negative D-Dimer result and Wells score. A negative result doesn't exclude the possibility of DIC. The test be repeated along with other diagnostic tests if the patient's symptoms persist or worsen. [email or web address] Performed By: #### C LUKAS GAMBOA, 79960-6, 07805-9, THYR #### [facility] ([id number]) [address] [place] [address] 61000 HCG ( test) Ql (U)o n 11-04-2024 Beta HCG ( test) Ql (U) Negative Normal NEG [facility] Comment on above: Performed By: #### 2 106-3 #### [facility] ([id number]) [address] [place] [address] 12339 MAGNESIUMon 11-04-2024 Magnesium [Mass/Vol] 2.3 mg/dL Normal 1.8-2.6 [facility] [place] Comment on above: Performed By: #### C LUKAS GAMBOA, 17628-4, 62505-6, THYR #### [facility] ([id number]) [address] [place] [address] 94379 THYROID PROFILEon 11-04-2024 Free T4 [Mass/Vol] 0.88 ng/dL Normal 0.61-1.60 [facility] Comment on above: Performed By: #### C LUKAS GAMBOA, 45747-9, 53092-2, THYR #### [facility] ([id number]) [address] [place] [address] 04251 TSH 1.78 uIU/mL Normal 0.49-4.67 [facility] Comment on above: Performed By: #### C BCA, CMP, 14987-8, 44775-5, THYR #### [facility] ([id number]) [address] [place] [address] 41409 URN MACROSCOPIC NURon 2024 BILIRUBIN LEIDA Negative Normal NEG [facility] Comment on above: Performed By: #### N UM #### [facility] ([id number]) [address] [place] [address] 50124 BLOOD/HGB LEIDA Trace Abnormal NEG [facility] Comment on above: Performed By: #### N UM #### [facility] ([id number]) [address] [place] [address] 01120 GLUCOSE LEIDA Negative Normal NEG [facility] Comment on above: Performed By: #### N UM #### [facility] ([id number]) [address] [place] [address] [place] [address] KETONES LEIDA Negative Normal NEG [facility] Comment on above: Performed By: #### N UM #### [facility] ([id number]) [address] [place] [address] [place] [address] LEUKOCYTE ESTERASE LEIDA Small Abnormal NEG Pr [facility] Comment on above: Performed By: #### N UM #### [facility] ([id number]) [address] [place] [address] [place] [address] NITRITE LEIDA Negative Normal NEG [facility] Comment on above: Performed By: #### N UM #### [facility] ([id number]) [address] [place] [address] 41814 PH LEIDA 6.0 Normal 5.0-8.5 [facility] Comment on above: Performed By: #### N UM #### [facility] ([id number]) [address] [place] [address] 56424 PROTEIN LEIDA Negative Normal NEG [facility] Comment on above: Performed By: #### N UM #### [facility] ([id number]) [address] [place] [address] 50994 SPECIFIC GRAVITY LEIDA 1.025 Normal 1.003-1.035 [facility] Comment on above: Performed By: #### N UM #### [facility] ([id number]) [address] [place] [address] 46273 UROBILINOGEN LEIDA 0.2 eu/dL Normal <1.1 [facility] Comment on above: Performed By: #### N UM #### [facility] ([id number]) [address] [place] [address] 72389 XR CHEST 1 VWon 11-04-2024 XR CHEST 1 VW XR CHEST 1 VW History: Palpitations Exam/Technique: Portable upright AP chest Comparison: 11/12/2022 Findings: There is no active pulmonary or pleural disease displayed. Cardiac and mediastinal contours appear within normal limits on this AP projection. IMPRESSION: No evidence of active pulmonary disease. 7 Finalized by Tres Giron MD on 11/04/2024 1:02 AM Normal [facility] ALL PROGESTERONEon 5 PROGESTERONE 13.8 ng/mL . [facility] are Comment on above: Follicular phase 0.1 - 0.9 Luteal phase 1.8 - 23.9 Ovulation phase 0.1 - 12.0 First trimester 11.0 - 44.3 Second trimester 25.4 - 83.3 Third trimester 58.7 - 214.0 Postmenopausal 0.0 - 0.1 Performed at: [address] [id number] Dye Tub Operator: Yboany Blount PhD, Phone: [phone] [facility] ALL PROGESTERONEon 5 PROGESTERONE 22.3 ng/mL . [facility] are Comment on above: Follicular phase 0.1 - 0.9 Luteal phase 1.8 - 23.9 Ovulation phase 0.1 - 12.0 First trimester 11.0 - 44.3 Second trimester 25.4 - 83.3 Third trimester 58.7 - 214.0 Postmenopausal 0.0 - 0.1 Performed at: [address] [id number] D[employer] Operator: Yobany Blount PhD, Phone: [phone] [facility] TechnologyWI XYZE e ALL PROGESTERONEon 4 PROGESTERONE 8.5 ng/mL . [facility] are Comment on above: Follicular phase 0.1 - 0.9 Luteal phase 1.8 - 23.9 Ovulation phase 0.1 - 12.0 First trimester 11.0 - 44.3 Second trimester 25.4 - 83.3 Third trimester 58.7 - 214.0 Postmenopausal 0.0 - 0.1 Performed at: [address] [id number] D[employer] Operator: Yobany Blount PhD, Phone: [phone] [facility]ENTERKurve TechnologyST. LUKE'S HOSPITALVia6 e ALL PROGESTERONEon 4 PROGESTERONE 16.8 ng/mL . [facility] Health are Comment on above: Follicular phase 0.1 - 0.9 Luteal phase 1.8 - 23.9 Ovulation phase 0.1 - 12.0 First trimester 11.0 - 44.3 Second trimester 25.4 - 83.3 Third trimester 58.7 - 214.0 Postmenopausal 0.0 - 0.1 Performed at: [address] [id number] D[employer] Tub Operator: Yobany Blount PhD, Phone: [phone] [facility]ENTERKurve TechnologyST. LUKE'S HOSPITALVia6 e ALL CBC WITH AUTO DIFFon BASOPHILS ABSOLUTE AUTO 0.1 [facility] Basophils/100 WBC (Bld) 0.6 % 0.2 - 2.0 % [facility] Eosinophils/100 WBC (Bld) 2.8 % 0.9 - 7.0 % [facility] Erythrocyte distribution width (RBC) [Ratio] 12.1 % 11.0 - 15.0 % [facility] Hematocrit (Bld) [Volume fraction] 40.6 % 36.0 - 48.0 % [facility] [employer] e Hemoglobin (Bld) [Mass/Vol] 13.5 g/dL 12.0 - 16.0 g/dL [facility] IMMATURE GRANULOCYTES ABS AUTO 0.02 [facility] Immature granulocytes/100 WBC (Bld) 0.3 % 0.0 - 0.5 % [facility] LYMPHOCYTES ABSOLUTE AUTO 1.8 [facility] Lymphocytes/100 WBC (Bld) 23.0 % 20.5 - 60.0 % [facility] MCH (RBC) [Entitic mass] 30.6 pg 26.7 - 34.0 pg [facility] MCHC (RBC) [Mass/Vol] 33.3 g/dL 29.9 - 35.2 g/dL [facility] MCV (RBC) [Entitic vol] 92.1 fL 81.0 - 99.0 fL [facility] MONOCYTES ABSOLUTE AUTO 0.5 [facility] Monocytes/100 WBC (Bld) 6.6 % 1.7 - 12.0 % [facility] NEUTROPHILS ABSOLUTE AUTO 5.3 [facility] Neutrophils/100 WBC (Bld) 66.7 % 43.0 - 75.0 % [facility] Platelet mean volume (Bld) [Entitic vol] 9.8 fL 9.5 - 13.5 fL [facility] EO # 0.2 [facility] TB PLT 284 [facility] TB RBC 4.41 [facility] Healthcar e TB WBC 8.0 [facility] Healthcar e [facility] ALL CBC WITH AUTO DIFFon BASOPHILS ABSOLUTE AUTO 0.1 [facility] Basophils/100 WBC (Bld) 0.5 % 0.2 - 2.0 % [facility] Eosinophils/100 WBC (Bld) 2.8 % 0.9 - 7.0 % [facility] Erythrocyte distribution width (RBC) [Ratio] 12.0 % 11.0 - 15.0 % [facility] Hematocrit (Bld) [Volume fraction] 39.7 % 36.0 - 48.0 % [facility] Health[employer] e Hemoglobin (Bld) [Mass/Vol] 13.4 g/dL 12.0 - 16.0 g/dL [facility] IMMATURE GRANULOCYTES ABS AUTO 0.03 [facility] Immature granulocytes/100 WBC (Bld) 0.3 % 0.0 - 0.5 % [facility] Interpretation and review of laboratory results Abnormal [facility] LYMPHOCYTES ABSOLUTE AUTO 2.9 [facility] Lymphocytes/100 WBC (Bld) 24.4 % 20.5 - 60.0 % [facility] MCH (RBC) [Entitic mass] 30.7 pg 26.7 - 34.0 pg [facility] MCHC (RBC) [Mass/Vol] 33.8 g/dL 29.9 - 35.2 g/dL [facility] MCV (RBC) [Entitic vol] 91.1 fL 81.0 - 99.0 fL [facility] MONOCYTES ABSOLUTE AUTO 0.6 [facility] Monocytes/100 WBC (Bld) 5.2 % 1.7 - 12.0 % [facility] NEUTROPHILS ABSOLUTE AUTO 8.0 High [facility] Neutrophils/100 WBC (Bld) 66.8 % 43.0 - 75.0 % [facility] Platelet mean volume (Bld) [Entitic vol] 10.1 fL 9.5 - 13.5 fL [facility] are [facility] EO # 0.3 [facility] TB[facility] PLT 303 [facility] TB[facility] RBC 4.36 [facility] WBC 12.0 High [facility] POCT EKGOrdered By: Sheyla Powell on 03-13-[address] [facility] No Panel InformationOrdered By: Pinky Singh on 11-24-2023 Quick Strep (POC) [facility] Cytology Cervical or vaginal smear or scraping studyon 11-19-2022 [facility] COVID/FLU/RSV RT-PCRon 10-11 SARS-CoV-2 (COVID-19) RNA PEACE+probe Ql (Unsp spec) Positive [facility] [employer] Other COVID/FLU/RSV RT-PCR Negative [facility] [employer] Other Vital Signs Date Time Vital Sign Value Performing Clinician Facility 04-11-2025 11:00-0400 Body mass index (BMI) [Ratio] 42.63 kg/m2 [employer] Phone: [facility] 04-11-2025 11:00-0400 Body weight 127.19 kg [employer] Work Phone: [facility] 04-11-2025 11:00-0400 Diastolic blood pressure 86 mm[Hg] Sirael Davie DO Work Phone: [facility] 04-11-2025 11:00-0400 Systolic blood pressure 140 mm[Hg] Israel Davie DO Work Phone: [facility] 03-28-2025 11:42-0400 Body mass index (BMI) [Ratio] 42.29 kg/m2 Israel Davie DO Work Phone: [facility] 03-28-2025 11:42-0400 Body weight 126.15 kg Israel Davie DO Work Phone: [facility] 03-28-2025 11:42-0400 Diastolic blood pressure 80 mm[Hg] Israel Davie DO Work Phone: [facility] 03-28-2025 11:42-0400 Systolic blood pressure 138 mm[Hg] Israel Davie DO Work Phone: [facility] 03-01-2025 10:03-0400 Body mass index (BMI) [Ratio] 41.66 kg/m2 [facility] 03-01-2025 10:03-0400 Body weight 124.29 kg [facility] 03-01-2025 10:03-0400 Diastolic blood pressure 76 mm[Hg] [facility] 03-01-2025 10:03-0400 Systolic blood pressure 124 mm[Hg] [facility] 01-03-2025 10:52-0400 Body height 172.7 cm Robbie Lopez MD Work Phone: [facility] 01-03-2025 10:52-0400 Body mass index (BMI) [Ratio] 40.84 kg/m2 Robbie Lopez MD Work Phone: [facility] 01-03-2025 10:52-0400 Body temperature 97.81 [degF] Robbie Lopez MD Work Phone: [facility] 01-03-2025 10:52-0400 Body weight 121.84 kg Robbie Lopez MD Work Phone: [facility] 01-03-2025 10:52-0400 Diastolic blood pressure 78 mm[Hg] Robbie Lopez MD Work Phone: [facility] 01-03-2025 10:52-0400 Heart rate 73 /min Robbie Lopez MD Work Phone: [facility] 01-03-2025 10:52-0400 Systolic blood pressure 132 mm[Hg] Robbie Lopez MD Work Phone: [facility] 12-18-2024 13:38-0400 Body mass index (BMI) [Ratio] 40.35 kg/m2 Israel Davie DO Work Phone: [facility] 12-18-2024 13:38-0400 Body weight 120.39 kg Israel Davie DO Work Phone: [facility] 12-18-2024 13:38-0400 Diastolic blood pressure 72 mm[Hg] Israel Davie DO Work Phone: [facility] 12-18-2024 13:38-0400 Systolic blood pressure 118 mm[Hg] Israel Davie DO Work Phone: [facility] 12-10-2024 14:36-0400 Body mass index (BMI) [Ratio] 40.75 kg/m2 Israel Davie DO Work Phone: [facility] 12-10-2024 14:36-0400 Body weight 121.56 kg Israel Davie DO Work Phone: [facility] 12-10-2024 14:36-0400 Diastolic blood pressure 78 mm[Hg] Israel Davie DO Work Phone: [facility] 12-10-2024 14:36-0400 Systolic blood pressure 130 mm[Hg] Israel Davie DO Work Phone: [facility] 11-12-2024 14:03-0400 Diastolic blood pressure 86 mm[Hg] Israel Davie DO Work Phone: [facility] 11-12-2024 14:03-0400 Systolic blood pressure 120 mm[Hg] Israel Davie DO Work Phone: [facility] 07-23-2024 13:12-0500 Body mass index (BMI) [Ratio] 40.01 kg/m2 Israel Davie DO Work Phone: [facility] 07-23-2024 13:12-0500 Body weight 119.35 kg Israel Davie DO Work Phone: [facility] 07-23-2024 13:12-0500 Diastolic blood pressure 78 mm[Hg] Israel Davie DO Work Phone: [facility] 07-23-2024 13:12-0500 Systolic blood pressure 130 mm[Hg] Israel Davie DO Work Phone: [facility] 06-11-2024 14:39-0400 Body height 172.7 cm Israel Davie DO Work Phone: [facility] 06-11-2024 14:39-0400 Body mass index (BMI) [Ratio] 39.53 kg/m2 Israel Davie DO Work Phone: [facility] 06-11-2024 14:39-0400 Body weight 117.94 kg Israel Davie DO Work Phone: [facility] 06-11-2024 14:39-0400 Diastolic blood pressure 76 mm[Hg] Israel Davie DO Work Phone: [facility] 06-11-2024 14:39-0400 Systolic blood pressure 128 mm[Hg] Israel Davie DO Work Phone: [facility] 05-03-2024 11:39-0400 Body weight 118.84 kg Israel Davie DO Work Phone: [facility] 05-03-2024 11:39-0400 Diastolic blood pressure 78 mm[Hg] Israel Davie DO Work Phone: [facility] 05-03-2024 11:39-0400 Systolic blood pressure 130 mm[Hg] Israel Davie DO Work Phone: [facility] 04-10-2024 09:36-0400 Body weight 120.57 kg Israel Davie DO Work Phone: [facility] 04-10-2024 09:36-0400 Diastolic blood pressure 78 mm[Hg] Israel Davie DO Work Phone: [facility] 04-10-2024 09:36-0400 Systolic blood pressure 130 mm[Hg] Israel Davie DO Work Phone: [facility] 03-13-2024 10:50-0400 Body height 172.7 cm Tucker Fraire MD Work Phone: [facility] 03-13-2024 10:50-0400 Body mass index (BMI) [Ratio] 40.66 kg/m2 Tucker Fraire MD Work Phone: [facility] 03-13-2024 10:50-0400 Body weight 121.29 kg Tucker Fraire MD Work Phone: [facility] 03-13-2024 10:50-0400 Diastolic blood pressure 94 mm[Hg] Tucker Fraire MD Work Phone: [facility] 03-13-2024 10:50-0400 Heart rate 83 /min Tucker Fraire MD Work Phone: [facility] 03-13-2024 10:50-0400 SaO2% (BldA) [Mass fraction] 98 % Tucker Fraire MD Work Phone: [facility] 03-13-2024 10:50-0400 Systolic blood pressure 136 mm[Hg] Tucker Fraire MD Work Phone: [facility] 11-24-2023 12:26-0400 Body height 172.72 cm [facility] 11-24-2023 12:26-0400 Body mass index (BMI) [Ratio] 42.6 kg/m2 [facility] 11-24-2023 12:26-0400 Body temperature 97.3 [degF] [facility] 11-24-2023 12:26-0400 Body weight 127.11 kg [facility] 11-24-2023 12:26-0400 Diastolic blood pressure 84 mm[Hg] [facility] 11-24-2023 12:26-0400 Heart rate 75 /min [facility] 11-24-2023 12:26-0400 Respiratory rate 18 /min [facility] 11-24-2023 12:26-0400 SaO2% (BldA) [Mass fraction] 98 % [facility] 11-24-2023 12:26-0400 Systolic blood pressure 130 mm[Hg] [facility] 10-11-2022 11:35-0500 Body height 172.72 cm Pinky Samantha Other [employer] [facility] [employer] Other 10-11-2022 11:35-0500 Body mass index (BMI) [Ratio] 42.27 kg/m2 Pinky Samantha Other [employer] Other 10-11-2022 11:35-0500 Body temperature 97.8 [degF] Pinky Samantha Other [employer] Other 10-11-2022 11:35-0500 Body weight 126.1 kg Pinky Samantha Other [employer] Other 10-11-2022 11:35-0500 Respiratory rate 18 /min Pinky Samantha Other [employer] Other 10-11-2022 11:35-0500 SaO2% (BldA) [Mass fraction] 98 % Pinky Singh Other [employer] Other Encounters Encounter Date Encounter Type Care Provider Facility Start: 04-11-2025 End: 04-11-2025 Bamboo flowsheet Israel Davie DO Work Phone: [facility] Start: 04-11-2025 End: 04-11-2025 Bamboo flowsheet Israel Davie DO Work Phone: [facility] Start: 04-11-2025 End: 04-11-2025 Office outpatient visit 15 minutes Israel Davie DO Work Phone: [facility] Comment on above: 15 weeks gestation o f ([facility]); Second trimester ([facility]); Acute nonintractable headache, unspecified headache type; BP check; Gestational hypertension, antepartum ([facility]); induced hypertension, antepartum ([facility]) Start: 04-11-2025 End: 04-11-2025 Patient encounter status Israel Davie DO Work Phone: [facility] Start: 04-11-2025 End: 04-11-2025 ambulatory ISRAEL DAVIE Not Available Start: 03-28-2025 End: 03-28-2025 Bamboo flowsheet Israel Davie DO Work Phone: [facility] Start: 03-28-2025 End: 03-28-2025 Bamboo flowsheet Israel Davie DO Work Phone: [facility] Start: 03-28-2025 End: 03-28-2025 Office outpatient visit 15 minutes Israel Davie DO Work Phone: [facility] Comment on above: 13 weeks gestation o f ([facility]); Second trimester ([facility]); Acute nonintractable headache, unspecified headache type Start: 03-28-2025 End: 03-28-2025 ambulatory ISRAEL DAVIE Not Available Start: 03-20-2025 End: 03-20-2025 Clinisync Result Encounter Israel Davie DO Work Phone: [facility]solic[facility] Start: 03-20-2025 End: 03-20-2025 Clinisync Result Encounter Israel Davie DO Work Phone: [facility] Start: 03-01-2025 End: 03-01-2025 Office outpatient visit 5 minutes Davie [facility] Start: 03-01-2025 End: 03-01-2025 ambulatory ISRAEL DAVIE Not Available Start: 01-16-2025 End: 01-18-2025 Clinisync Result Encounter Israel Davie DO Work Phone: [facility] Start: 01-16-2025 End: 01-18-2025 Clinisync Result Encounter Israel Davie DO Work Phone: [facility] Start: 01-03-2025 End: 01-03-2025 Patient encounter procedure Robbie Lopez MD Work Phone: [facility] Comment on above: Encounter for prepro cedural laboratory examination (Primary Dx); Abnormal uterine bleeding Start: 01-03-2025 End: 01-03-2025 Patient encounter status Robbie Lopez MD Work Phone: [facility] Work Phone: Start: 01-03-2025 End: 01-03-2025 ambulatory ROBBIE Newman [facility] Start: 01-03-2025 End: 01-03-2025 Encounter for preprocedural laboratory examination ROBBIE Newman [facility] Start: 12-18-2024 End: 12-26-2024 External Result Encounter Israel Davie DO Work Phone: [facility]olic[facility] Start: 12-18-2024 End: 12-26-2024 External Result Encounter Israel Davie DO Work Phone: [facility] Start: 12-18-2024 End: 12-18-2024 Patient encounter procedure Israel Davie DO Work Phone: [facility] Comment on above: Skin mole Start: 12-18-2024 End: 12-18-2024 ambulatory Israel Davie [facility] Work Phone: Start: 12-18-2024 End: 12-18-2024 Departed Referred Israel Davie DO Work Phone: [facility] Start: 12-17-2024 End: 12-18-2024 Clinisync Result Encounter Israel Davie DO Work Phone: [facility]solic[facility] Start: 12-17-2024 End: 12-18-2024 Clinisync Result Encounter Israel Davie DO Work Phone: [facility]solic[facility] Start: 12-10-2024 End: 12-10-2024 Patient encounter procedure Israel Davie DO Work Phone: [facility] Start: 12-10-2024 End: 12-10-2024 Periodic preventive med est patient 18-39 yrs Israel Davie DO Work Phone: [facility] Comment on above: Well woman exam with routine gynecological exam Start: 12-10-2024 End: 12-10-2024 ambulatory ISRAEL DAVIE Not Available Start: 12-10-2024 End: 12-10-2024 Bamboo flowsheet Israel Davie DO Work Phone: [facility] Start: 12-10-2024 End: 12-13-2024 Bamboo flowsheet Israel Davie DO Work Phone: [facility] Start: 12-10-2024 End: 12-13-2024 Clinisync Result Encounter Israel Davie DO Work Phone: [facility]solic[facility] Start: 11-16-2024 End: 11-17-2024 Clinisync Result Encounter Israel Davie DO Work Phone: [facility] Unsolicited Start: 11-16-2024 End: 11-17-2024 Clinisync Result Encounter Israel Davie DO Work Phone: [facility] Unsolicited Start: 11-12-2024 End: 11-12-2024 Office outpatient visit 15 minutes Israel Davie DO Work Phone: [facility] Comment on above: Encounter for fertil ity planning; Acute cystitis without hematuria; PCOS (polycystic ovarian syndrome); Fallopian tube disorder Start: 11-12-2024 End: 11-12-2024 Bamboo flowsheet Israel Davie DO Work Phone: [facility] Start: 11-12-2024 End: 11-12-2024 Bamboo flowsheet Israel Davie DO Work Phone: [facility] Start: 11-12-2024 End: 11-12-2024 ambulatory ISRAEL DAVIE Not Available Start: 11-03-2024 End: 11-04-2024 Emergency department patient visit [facility] Start: 10-18-2024 End: 10-19-2024 Clinisync Result Encounter [...] Bamboo flowsheet Israel Davie DO Work Phone: [facility] Start: 07-23-2024 End: 07-23-2024 ambulatory ISRAEL DAVIE Not Available Start: 07-23-2024 End: 07-23-2024 Office outpatient visit 15 minutes Israel Davie DO Work Phone: [facility] Comment on above: PCOS (polycystic ova charly syndrome); Encounter for fertility planning Start: 07-18-2024 End: 07-19-2024 Clinisync Result Encounter Israel Davie DO Work Phone: [facility] External Department Unsolicited Start: 07-18-2024 End: 07-19-2024 Clinisync Result Encounter Israel Davie DO Work Phone: [facility] External [facility] Unsolicited Start: 06-11-2024 End: 06-11-2024 Postop follow up visit related to original px Israel Davie DO Work Phone: [facility] Comment on above: Postoperative visit; S/P laparoscopic procedure Start: 06-11-2024 End: 06-11-2024 Bamboo flowsheet Israel Davie DO Work Phone: [facility] Start: 06-11-2024 End: 06-11-2024 Bamboo flowsheet Israel Davie DO Work Phone: [facility] Start: 06-11-2024 End: 06-11-2024 ambulatory ISRAEL DAVIE Not Available Start: 06-01-2024 End: 06-01-2024 Clinisync Result Encounter Israel Davie DO Work Phone: [facility] External [facility] Unsolicited Start: 06-01-2024 End: 06-01-2024 Clinisync Result Encounter Israel Davie DO Work Phone: [facility] External Department Unsolicited Start: 05-03-2024 End: 05-03-2024 Office outpatient visit 15 minutes Israel Davie DO Work Phone: [facility] Comment on above: Pre-op examination; Pelvic pain in female; Fallopian tube disorder Start: 05-03-2024 End: 05-03-2024 Preprocedural examination done Israel Davie DO Work Phone: [facility] Start: 05-03-2024 End: 05-03-2024 ambulatory ISRAEL DAVIE Not Available Start: 04-24-2024 End: 04-24-2024 Clinisync Result Encounter Israel Davie DO Work Phone: [facility] External Department Unsolicited Start: 04-24-2024 End: 04-24-2024 Clinisync Result Encounter Israel Davie DO Work Phone: [facility] External Department Unsolicited Start: 04-10-2024 End: 04-10-2024 Bamboo flowsheet Israel Davie DO Work Phone: [facility] Start: 04-10-2024 End: 04-10-2024 Bamboo flowsheet Israel Davie DO Work Phone: [facility] Start: 04-10-2024 End: 04-10-2024 Office outpatient visit 15 minutes Israel Davie DO Work Phone: [facility] Comment on above: Encounter for fertil ity planning; PCOS (polycystic ovarian syndrome); Pelvic pain in female; Abnormal uterine bleeding (AUB) Start: 03-13-2024 End: 03-13-2024 Office outpatient visit 15 minutes Tucker Fraire MD Work Phone: [facility] Comment on above: Heart palpitations ( Primary Dx) Start: 03-13-2024 End: 03-13-2024 ambulatory TUCKER FRAIRE [facility] Start: 03-12-2024 End: 03-12-2024 Telephone encounter Sheyla Powell [facility] Start: 02-22-2024 End: 02-22-2024 Chart abstracting Scanning Provider External [facility] Start: 02-06-2024 End: 02-06-2024 ambulatory [facility] Start: 11-24-2023 End: 11-24-[address] [facility] Work Phone: Start: 11-24-2023 End: 11-24-2023 Patient encounter procedure [facility] Work Phone: Start: 10-11-2022 End: 10-11-2022 ambulatory Pinky Singh Other [employer] Other Start: 10-11-2022 Office outpatient ne w 20 minutes Pinky Singh [facility] Procedures Date Procedure Procedure Detail Performing Clinician Start: 04-11-2025 Urnls dip stick/tabl et rgnt non-auto w/o micrscp Israel Davie DO Work Phone: Start: 03-28-2025 Urnls dip stick/tabl et rgnt non-auto w/o micrscp Israel Davie DO Work Phone: Start: 03-20-2025 ALL CBC WITH AUTO DIFF Israel Davie DO Work Phone: Start: 03-01-2025 End: 03-01-2025 Urnls dip stick/tablet rgnt non-auto w/o micrscp Israel Davie DO Work Phone: Start: 01-16-2025 ALL PROGESTERONE Israel Davie DO Work Phone: Start: 12-18-2024 PATHOLOGY REQUEST FO R LAB RENA Israel Davie DO Work Phone: Start: 12-17-2024 ALL PROGESTERONE Israel Davie DO Work Phone: Start: 12-10-2024 IGP,APTIMA HPV,AGE GDLN Israel Davie DO Work Phone: Start: 12-10-2024 Microscopic observat ion [Identifier] in Cervix by Cyto stain Israel Davie DO Work Phone: Start: 11-16-2024 ALL PROGESTERONE Israel Davie DO Work Phone: Start: 10-18-2024 ALL PROGESTERONE Israel Davie DO [...] hin layer prep mnl screen Bethany Raymundo MECH[employer]ICAL EQUIPMENT TEST ENGINEER Work Phone: Plan of Treatment Date Care Activity Detail Author Start: 2042 Zoster Vaccines (1 of 2) Zoster Vaccines (1 of 2) [facility] Start: 12-11-2027 Screening for malignant neoplasm of cervix [facility] Start: 11-24-2027 Screening for malignant neoplasm of cervix [facility] Start: 12-16-2025 End: 12-16-2025 Patient encounter procedure [facility] Start: 11-23-2025 Screening for malignant neoplasm of cervix Pap Smear [facility] Start: 11-19-2025 Screening for malignant neoplasm of cervix Pap Smear [facility] Start: 04-25-2025 End: 04-25-2025 Patient encounter procedure 04/25/2025 11:10 AM EDT [facility] [address] [place] [phone] Israel Broderick DO [address] [place] [address] [facility] Start: 04-22-2025 Influenza vaccination [facility] Start: 04-11-2025 End: 04-11-2026 Alanine aminotransferase [Enzymatic activity/volume] in Serum or Plasma ALT Lab Routine Gestational hypertension, antepartum (HHS-HCC) induced hypertension, antepartum (HHS-HCC) Expected: 04/11/2025 (Approximate), Expires: 04/11/2026 [facility] Comment on above: Expected: 04/11/2025 (Approximate), Expi res: 04/11/2026 Start: 04-11-2025 End: 04-11-2026 Aspartate aminotransferase [Enzymatic activity/volume] in Serum or Plasma AST Lab Routine Gestational hypertension, antepartum (HHS-HCC) induced hypertension, antepartum (HHS-HCC) Expected: 04/11/2025 (Approximate), Expires: 04/11/2026 [facility] Comment on above: Expected: 04/11/2025 (Approximate), Expi res: 04/11/2026 Start: 04-11-2025 End: 04-11-2026 CBC W Auto Differential panel - Blood CBC and differential Lab Routine Gestational hypertension, antepartum (HHS-HCC) induced hypertension, antepartum (HHS-HCC) Expected: 04/11/2025 (Approximate), Expires: 04/11/2026 [facility] Comment on above: Expected: 04/11/2025 (Approximate), Expi res: 04/11/2026 Start: 04-11-2025 End: 04-11-2026 Creatinine [Mass/volume] in Serum or Plasma Creatinine Lab Routine Gestational hypertension, antepartum (HHS-HCC) induced hypertension, antepartum (HHS-HCC) Expected: 04/11/2025 (Approximate), Expires: 04/11/2026 [facility] Work Phone: Comment on above: Expected: 04/11/2025 (Approximate), Expi res: 04/11/2026 Start: 04-11-2025 End: 04-11-2026 Lactate dehydrogenase [Enzymatic activity/volume] in Serum or Plasma by Lactate to pyruvate reaction Lactate dehydrogenase Lab Routine Gestational hypertension, antepartum (HHS-HCC) induced hypertension, antepartum (HHS-HCC) Expected: 04/11/2025, Expires: 04/11/2026 [facility] Comment on above: Expected: 04/11/2025, Expires: Start: 04-11-2025 End: 04-11-2026 Protein, urine, 24 hour Protein, urine, 24 hour Lab Routine Gestational hypertension, antepartum (HHS-HCC) induced hypertension, antepartum (HHS-HCC) Expected: 04/11/2025 (Approximate), Expires: 04/11/2026 [facility] Comment on above: Expected: 04/11/2025 (Approximate), Expi res: 04/11/2026 Start: 04-11-2025 End: 04-11-2026 Pt and ptt Pt and ptt Lab Routine Gestational hypertension, antepartum (HHS-HCC) induced hypertension, antepartum (HHS-HCC) Expected: 04/11/2025, Expires: 04/11/2026 [facility] Comment on above: Expected: 04/11/2025, Expires: Start: 04-11-2025 End: 04-11-2026 Urate [Mass/volume] in Serum or Plasma Uric acid Lab Routine Gestational hypertension, antepartum (HHS-HCC) induced hypertension, antepartum (HHS-HCC) Expected: 04/11/2025 (Approximate), Expires: 04/11/2026 [facility] Comment on above: Expected: 04/11/2025 (Approximate), Expi res: 04/11/2026 Start: 04-11-2025 End: 04-11-2026 Urea nitrogen [Mass/volume] in Serum or Plasma BUN Lab Routine Gestational hypertension, antepartum (HHS-HCC) induced hypertension, antepartum ([facility]) Expected: 04/11/2025, Expires: 04/11/2026 [facility] Comment on above: Expected: 04/11/2025, Expires: Start: 04-11-2025 End: 04-11-2025 Patient encounter procedure [facility] Comment on above: Arrived Start: 03-28-2025 End: 03-28-2025 Patient encounter procedure [facility] Comment on above: Arrived Start: 03-13-2025 Adult BMI Screening Adult BMI Screening [facility] Start: 03-13-2025 Tobacco Screening Tobacco Screening [facility] Start: 03-01-2025 End: 03-01-2026 ABO/Rh ABO/Rh Lab Routine Missed menses , unspecified gestational age ([facility]) Expected: 03/01/2025 (Approximate), Expires: 03/01/2026 [facility] Comment on above: Expected: 03/01/2025 (Approximate), Expi res: 03/01/2026 Start: 03-01-2025 End: 03-01-2026 Blood type and Indirect antibody screen panel - Blood Type and screen Lab Routine Missed menses , unspecified gestational age ([facility]) Expected: 03/01/2025 (Approximate), Expires: 03/01/2026 [facility] Work Phone: Comment on above: Expected: 03/01/2025 (Approximate), Expi res: 03/01/2026 Start: 03-01-2025 End: 03-01-2026 Drugs of abuse panel - Urine by Screen method Rapid drug screen, urine Lab Routine , unspecified gestational age ([facility]) Encounter for supervision of normal first in first trimester ([facility]) Expected: 03/01/2025 (Approximate), Expires: 03/01/2026 [facility] Comment on above: Expected: 03/01/2025 (Approximate), Expi res: 03/01/2026 Start: 02-03-2025 End: 04-05-2025 Choriogonadotropin ( test) [Presence] in Urine POCT , urine manually resulted Point of Care Testing Routine Encounter for preprocedural laboratory examination Expected: 02/03/2025 (Approximate), Expires: 04/05/2025 [facility] Work Phone: Comment on above: Expected: 02/03/2025 (Approximate), Expi res: 04/05/2025 Start: 02-03-2025 End: 01-03-2026 Sonohysterogram Sonohysterogram Procedures Routine Abnormal uterine bleeding Expected: 02/03/2025 (Approximate), Expires: 01/03/2026 [facility] Work Phone: Comment on above: Expected: 02/03/2025 (Approximate), Expi res: 01/03/2026 Start: 02-03-2025 End: 01-03-2026 US.doppler Uterus and Fallopian tubes W saline IU US sonohysterogram Imaging Routine Abnormal uterine bleeding Expected: 02/03/2025 (Approximate), Expires: 01/03/2026 [facility] Work Phone: Comment on above: Expected: 02/03/2025 (Approximate), Expi res: 01/03/2026 Start: 12-18-2024 End: 12-18-2024 Patient encounter procedure 12/18/2024 1:30 PM EDT Procedure Visit [facility] [address] [place] [phone] Israel Broderick, DO [address] [place] [address] [facility] Start: 12-18-2024 [facility] Start: 12-10-2024 End: 12-10-2024 Patient encounter procedure [facility] Comment on above: Arrived Start: 11-12-2024 End: 11-12-2024 Patient encounter procedure [facility] Comment on above: Arrived Start: 07-23-2024 End: 07-23-2024 Patient encounter procedure 07/23/2024 1:00 PM EST Office Visit [facility] [address] [place] [phone] Israel Broderick, DO [address] [place] [address] [facility] Start: 06-11-2024 End: 06-11-2024 Patient encounter procedure 06/11/2024 2:20 PM EDT Office Visit [facility] [address] [place] [phone] Irsael Broderick, DO [address] [place] [address] Arrived [facility] Comment on above: Arrived Start: 06-01-2024 End: 06-01-2024 Patient encounter procedure 06/01/2024 8:30 AM EDT Procedure Visit [facility] Israel Broderick, DO [address] [place] [address] [facility] Start: 05-03-2024 End: 05-03-2024 Patient encounter procedure 05/03/2024 11:40 AM EDT Consult [facility] [address] [facility] [place] [phone] Israel Broderick, DO [address] [place] [address] [facility] Start: 04-22-2024 COVID-19 Vaccine ( season) COVID-19 Vaccine ( season) [facility] Start: 04-22-2024 Influenza vaccination [facility] Start: 04-10-2024 End: 04-10-2025 Antimullerian hormone (AMH) Antimullerian hormone (AMH) Lab Routine PCOS (polycystic ovarian syndrome) Expected: 04/10/2024 (Approximate), Expires: 04/10/2025 [facility] Comment on above: Expected: 04/10/2024 (Approximate), Expi res: 04/10/2025 Start: 04-10-2024 End: 04-10-2025 DHEA DHEA Lab Routine PCOS (polycystic ovarian syndrome) Expected: 04/10/2024 (Approximate), Expires: 04/10/2025 [facility] Comment on above: Expected: 04/10/2024 (Approximate), Expi res: 04/10/2025 Start: 04-10-2024 End: 04-10-2025 US for US PELVIS-TRANSVAG IF INDICATED Imaging Routine PCOS (polycystic ovarian syndrome) Pelvic pain in female Expected: 04/10/2024 (Approximate), Expires: 04/10/2025 [facility] Comment on above: Expected: 04/10/2024 (Approximate), Expi res: 04/10/2025 Start: 04-10-2024 End: 04-10-2024 Patient encounter procedure 04/10/2024 9:10 AM EDT Office Visit [facility] [address] [facility] [facility] [facility] [place] [phone] Israel Broderick DO [address] [place] [address] Arrived [facility] Comment on above: Arrived Start: 03-13-2024 End: 03-13-2024 Patient encounter procedure 03/13/2024 11:00 AM EDT Office Visit [facility] [address] [place] [address] Tucker Fraire MD [address] [place] [address] [facility] Start: 01-21-2024 Adult BMI Screening Adult BMI Screening [facility] Start: 01-21-2024 Tobacco Screening Tobacco Screening [facility] Start: 2014 DTaP/Tdap/Td Vaccines (1 - Tdap) DTaP/Tdap/Td Vaccines (1 - Tdap) [facility] Start: 2013 Screening for malignant neoplasm of cervix HPV/Cotest [facility] Start: 2011 DTaP,Tdap and Td Vaccines (1 - Tdap) DTaP,Tdap and Td Vaccines (1 - Tdap) [facility] Start: 2011 Hepatitis B Vaccines (1 of 3 - 19+ 3-dose series) Hepatitis B Vaccines (1 of 3 - 19+ 3-dose series) [facility] Start: 2010 Adult BMI Follow Up Plan Adult BMI Follow Up Plan [facility] Start: 2010 Hepatitis C screening Hepatitis C Screening [facility] Start: 2005 Varicella vaccination Varicella Vaccines (1 of 2 - 13+ 2-dose series) [facility] Start: 2004 Depression Screening Depression Screening [facility] Start: 1993 MMR Vaccines (1 of 1 - Standard series) MMR Vaccines (1 of 1 - Standard series) [facility] Start: 1992 HIV screening HIV Screening [facility] Start: 1992 Lipid panel Lipid Panel [facility] Start: 1992 Yearly Adult Physical Yearly Adult Physical [facility] Bacteria identified in Urine by Culture Urine culture Microbiology Routine Missed menses Ordered: 03/01/2025 [facility] Comment on above: Ordered: 03/01/2025 CBC W Auto Different ial panel - Blood CBC and differential Lab Routine PCOS (polycystic ovarian syndrome) Ordered: 04/10/2024 [facility] Comment on above: Ordered: 04/10/2024 CBC W Auto Different ial panel - Blood CBC and differential Lab Routine Missed menses , unspecified gestational age ([facility]) Ordered: 03/01/2025 [facility] Comment on above: Ordered: 03/01/2025 Cytology Cervical or vaginal smear or scraping study Pap Smear Pathology and Cytology Routine Well woman exam with routine gynecological exam Ordered: 12/10/2024 [facility] Work Phone: Comment on above: Ordered: 12/10/2024 DHEA-sulfate DHEA-sulfate Lab Routine PCOS (polycystic ovarian syndrome) Ordered: 04/10/2024 [facility] Comment on above: Ordered: 04/10/2024 Follicle stimulating hormone Follicle stimulating hormone Lab Routine PCOS (polycystic ovarian syndrome) Ordered: 04/10/2024 [facility] Comment on above: Ordered: 04/10/2024 hCG, quantitative, hCG, quantitative, Lab Routine PCOS (polycystic ovarian syndrome) Ordered: 04/10/2024 [facility] Work Phone: Comment on above: Ordered: 04/10/2024 Hemoglobin A1c/Hemoglobin.total in Blood Hemoglobin A1c Lab Routine Pelvic pain in female Abnormal uterine bleeding (AUB) Ordered: 04/10/2024 [facility] Comment on above: Ordered: 04/10/2024 Hemoglobin A1c/Hemoglobin.total in Blood Hemoglobin A1c Lab Routine Missed menses , unspecified gestational age ([facility]) Ordered: 03/01/2025 [facility] Comment on above: Ordered: 03/01/2025 Hepatitis B virus matt rface Ag [Presence] in Serum or Plasma by Immunoassay Hepatitis B surface antigen Lab Routine Missed menses , unspecified gestational age ([facility]) Ordered: 03/01/2025 [facility] Comment on above: Ordered: 03/01/2025 Hepatitis C virus Ab [Presence] in Serum or Plasma by Immunoassay Hepatitis C antibody Lab Routine Missed menses , unspecified gestational age ([facility]) Ordered: 03/01/2025 [facility] Comment on above: Ordered: 03/01/2025 HIV-1/HIV-2 antigen/antibody combination immunoassay HIV-1 and HIV-2 antibodies Lab Routine Missed menses , unspecified gestational age ([facility]) Ordered: 03/01/2025 [facility] Comment on above: Ordered: 03/01/2025 Human papilloma viru s DNA [Presence] in Unspecified specimen by Probe with amplification HPV DNA probe, amplified Microbiology Routine Well woman exam with routine gynecological exam Ordered: 12/10/2024 [facility] Comment on above: Ordered: 12/10/2024 Luteinizing hormone Luteinizing hormone Lab Routine PCOS (polycystic ovarian syndrome) Ordered: 04/10/2024 [facility] Comment on above: Ordered: 04/10/2024 Reagin Ab [Presence] in Serum by RPR RPR Lab Routine Missed menses , unspecified gestational age ([facility]) Ordered: 03/01/2025 [facility] Comment on above: Ordered: 03/01/2025 Rubella antibody, IgG Rubella an tibody, IgG Lab Routine Missed menses , unspecified gestational age ([facility]) Ordered: 03/01/2025 [facility] Comment on above: Ordered: 03/01/2025 Thyrotropin [Units/v olume] in Serum or Plasma TSH Lab Routine PCOS (polycystic ovarian syndrome) Ordered: 04/10/2024 [facility] Comment on above: Ordered: 04/10/2024 Thyroxine (T4) free [Mass/volume] in Serum or Plasma T4, free Lab Routine PCOS (polycystic ovarian syndrome) Ordered: 04/10/2024 [facility] Comment on above: Ordered: 04/10/2024 Payers Date Payer Category Payer Self-pay 2022 Medicaid [id number] 2022 Medicaid [id number] 2. [id number] 1992 Unknown [id number] 2.16. [id number] 1992 Unknown [id number] 2.16.8 [id number] 1992 Unknown [id number] 2.16.8 [id number] 1992 Unknown [id number] 2.16.8 [id number] 1992 Unknown [id number] 2.16.8 [id number] 1992 Unknown [id number] 2.16.8 [id number] 1992 Unknown [id number] 2.16.8 [id number] 1992 Unknown [id number] 2.16.84 [id number] 1992 Unknown [id number] 2.16.84 [id number] 1992 Unknown [id number] 2.16.84 [id number] 1992 Unknown [id number] 2.16.84 [id number] 1992 Unknown [id number] 2.16.84 [id number] 1992 Unknown [id number] 2.16.84 [id number] Unknown [id number] 2.16.8 [id number] Social History Date Type Detail Facility Start: 02-22-2024 End: 01-03-2025 Sex Assigned At [facility] Other Start: 1990 Sex Assigned At Female F [facility] Tobacco smoking status MEIS Tobacco smoking consumption unknown [facility] Start: 1990 Sex assigned at Not on file P [facility] Start: 10-09-2022 End: 01-03-2025 Tobacco smoking status [facility] Never smoked tobacco [facility] Start: 10-09-2022 End: 01-03-2025 Tobacco use and exposure Smokeless tobacco non-user [facility] Start: 02-22-2024 End: 03-13-2024 Alcoholic beverage intake Ex-drinker (finding) [facility] Start: 02-22-2024 End: 01-03-2025 History of Social function [facility] Within the past 12 months we worried whether our food would run out before we got money to buy more. 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 Exam conducted with a merchant miller present. Vitals: Estimated body mass index is 42.63 kg/m as calculated from the following: Height as of 06/11/24: 5' 8 . Weight as of this encounter: 280 lb 6.4 oz. BP: 140/86 Patient's last menstrual period was 12/26/2024. ASSESSMENT & PLAN ICD-10-CM 1. 15 weeks gestation of ([facility]) Z3A.15 POCT urinalysis dipstick manually resulted 2. Second trimester ([facility]) Z34.92 POCT urinalysis dipstick manually resulted 3. Acute nonintractable headache, unspecified headache type R51.9 4. BP check Z01.30 Patient presents today for a routine obstetrics appointment. Patient is currently 15w1d with a Estimated Date of Delivery: 10/02/25. Patient is having persistent elevated HTN. Discussed patient being referred to [facility] for management and recommendations for Gestational HTN. Patient is agreeable with referral. Patient to be started on Labetalol 200mg BID. Patient given labs and 24 hour urine to have obtained for baseline testing. Patient aware that once lab results are obtained then referral will be completed, so then all results can be sent to [facility] at onetime. Patient to return to clinic in 4 weeks for routine OB appointment. Patient to reach out to office with any concerns/questions. Documented by Karoline Casillas LPN on behalf of: Israel Broderick DO documented in this encounter [facility] 03-28-2025 History of Present illness Narrative Reason for Appointment: Patient ID: Chayo Ramires is a 35 y.o. female who presents for No chief complaint on file. Patient presents today for Return OB appointment. [...] nursing note reviewed. Exam conducted with a merchant miller present. Vitals: Estimated body mass index is 42.29 kg/m as calculated from the following: Height as of 06/11/24: 5' 8 . Weight as of this encounter: 278 lb 1.9 oz. BP: 138/80 Patient's last menstrual period was 12/26/2024. ASSESSMENT & PLAN ICD-10-CM 1. 13 weeks gestation of ([facility]) Z3A.13 POCT urinalysis dipstick manually resulted 2. Second trimester ([facility]) Z34.92 POCT urinalysis dipstick manually resulted magnesium oxide (Mag-Ox) 400 MG tablet 3. Acute nonintractable headache, unspecified headache type R51.9 magnesium oxide (Mag-Ox) 400 MG tablet New OB: Patient presents today for 1st time obstetrics appointment with provider. Patient is currently 13w1d . Patients history has been reviewed in great detail including any potential risks. Patient stated she currently has no complaints. Expectations throughout regarding labs, ultrasounds, and appointments have been discussed with the patient in detail. It was reiterated that the patient is to drink 6-8 glasses of water a day, eat 6 small meals a day, do not consume raw or undercooked meat, and stay away from [facility]. Patient has been consulted regarding any further do's and don'ts of . Patient voiced understanding and all questions and concerns were answered. Patient complaints of headaches, magnesium oxide sent to pharmacy for patient to start taking daily. Orders Placed This Encounter Procedures POCT urinalysis dipstick manually resulted Follow Up: Patient is to return in 4 weeks for routine OB appointment. Documented by Karoline Casillas LPN on behalf of: Israel Broderick DO documented in this encounter [facility] 03-01-2025 History of Present illness Narrative Reason for Appointment: Patient ID: Chayo Ramires is a 34 y.o. female who presents for Amenorrhea Patient presents today for a Nurse OB Intake appointment. Patient is Unknown with a Estimated Date of Delivery: None noted. OB History Para Term AB Living 2 1 SAB IAB Ectopic Multiple Live Births # Outcome Date GA Lbr Jose/2nd Weight Sex Type Anes PTL Lv 2 Current 2019 Current Medications: has a current medication list which includes the following prescription(s): d-400, omeprazole, and sertraline. 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 PCOS (polycystic ovarian syndrome) 07/30/2024 Resolved Ambulatory Problems Diagnosis Date Noted No Resolved Ambulatory Problems No Additional Past Medical History Family History Problem Relation Name Age of Onset Other (htn) Mother Other (HTN) Father Diabetes Father Other (epilepsy) Brother Pancreatic cancer Maternal Grandfather Social History Tobacco Use Smoking status: Not on file Smokeless tobacco: Not on file Substance Use Topics Alcohol use: Not on file Drug use: Not on file Past Surgical History: Procedure Laterality Date LAPAROSCOPY DIAGNOSTIC / BIOPSY / ASPIRATION / LYSIS 06/01/2024 WISDOM TOOTH EXTRACTION No Known Allergies Vitals: Estimated body mass index is 41.66 kg/m as calculated from the following: Height as of 06/11/24: 5' 8 . Weight as of this encounter: 274 lb. BP: 124/76 Patient's last menstrual period was 11/27/2024 (exact date). Assessment/Plan Diagnoses and all orders for this visit: Amenorrhea Missed menses - Type and screen; Future - ABO/Rh; Future - CBC and differential - Hemoglobin A1c - RPR - Rubella antibody, IgG - Hepatitis B surface antigen - Hepatitis C antibody - HIV-1 and HIV-2 antibodies - Urine culture - POCT , urine manually resulted - POCT urinalysis dipstick manually resulted , unspecified gestational age ([facility]) - Type and screen; Future - ABO/Rh; Future - CBC and differential - Hemoglobin A1c - RPR - Rubella antibody, IgG - Hepatitis B surface antigen - Hepatitis C antibody - HIV-1 and HIV-2 antibodies - Rapid drug screen, urine; Future Encounter for supervision of normal first in first trimester ([facility]) - Rapid drug screen, urine; Future 9 weeks gestation of ([facility]) Nurse Note: Pt uncertain of doing the Ar[place] Billion to one. Advised pt if she does to make sure both labs and Arimo is done at the same time. PVU. Pt did state she had a Vit. D deficiency and has a h/o high blood pressure with G1Meghan Uriarte 3DVista advised patient showed in dating US today of 3 ovarian cysts on left ovary. Pt did state she has a h/o ovarian cysts and most of the time the cysts rupture on their own. Pt was advised Dr. Broderick will get the report to see how big the cysts really are and will f/up with you. OB Intake: Patient presents today for first OB visit. Patients history has been reviewed in great detail including any potential risks. Patient signed consent forms and patient desires testing in both trimesters. Patient currently has no complaints and has been advised to drink 6-8 glasses of water a day, eat no raw or undercooked meat, and stay away from [facility]. Patient has also been advised to not change litter boxes and eat 6 small meals a day. Patient has been consulted regarding the do's and don'ts of . Patient was given labs and all questions and concerns were answered. Follow Up: Patient is to return in 4 weeks for routine OB appointment. Follow Up: Patient is to have labs drawn at directed and return to office for initial OB appointment with provider. Patient may call office as needed with any concerns or questions. Nurse Visit Completed by: Melanie Almaraz MA documented in this encounter [facility] 01-03-2025 History of Present illness Narrative Images from the original note were not included. Visit Type: In Person MD reviewed, Authorization obtained to share with partner. NEW FERTILITY PATIENT VISIT Referred by: Dr. Israel Broderick Accompanied today by: Singh Ramires - Chayo Ramires is a 34 y.o. female who presents with Infertility Have you had any concerns about your fertility treatments so far? No What are you goals for today's visit? Figure out what is causing the infertility What causes of infertility have been identified on your workup so far? None Past Infertility Treatments: Yes Please summarize your fertility treatments to date. Prescription medication to ensure ovulation As far as you are aware, do you have insurance coverage for fertility diagnostic testing and/or fertility treatments? No Patient and partner x 6 years They have child together born 2019- conceived easily No conception since ~ 3 years PRIOR EVALUATION / TREATMENT Has seen Dr. Broderick Had laparoscopy- reports no evidence of endometriosis Reports normal SA Has started metformin and Letrozole/TIC x 5 cycles and Clomid/TIC x 2 cycles--> no conception Hysterosalpingogram: None but reports tubal assessment at time of laparoscopy demonstrated bilateral tubal patency Saline Infused Sonography: None CALL CENTER SUPPORT CONSULTANT Pelvic Ultrasound: 2023 FINDINGS: UTERUS: Normal size and appearance. Uterus [...] No findings to suggest polycystic ovarian syndrome. Prior Labs 10/2024 Thyroid profile includes TSH FT4 Order: [id number] Component Ref Range & Units 2 mo ago TSH 0.49 - 4.67 uIU/mL 1.78 T4, free 0.61 - 1.60 ng/dL 0.88 DHEA-SULFATE -- 137.0 -- -- -- -- -- -- -- -- LUTEINIZING HORMONE(LH) -- -- 3.7 -- -- -- -- -- -- -- THYROID STIMULATING HORMONE -- -- -- 1.117 -- -- -- -- -- -- HCG QUANTITATIVE -- -- -- -- <1 -- -- -- -- -- FREE T4 -- -- -- -- -- 1.02 -- -- -- -- GLYCOHEMOGLOBIN A1C -- -- -- -- -- -- 5.1 -- -- -- ESTIMATED AVERAGE GLUCOSE -- -- -- -- -- -- 100 -- -- -- DHEA, SERUM -- -- -- -- -- -- -- 250 -- -- ANTI-MULLERIAN HORMONE (AMH) -- -- -- -- -- -- -- -- 2.68 -- -labs done Relationship Status: Have you ever been ? Yes How many times have you been ? 1 Have you ever had a miscarriage? No How many times have you had a miscarriage? OB Hx OB History 1 Para 1 Term AB Living SAB IAB Ectopic Multiple Live Births 2019- , had GHTN, delivered at 38 6/7 IOL, no complications with delivery -Breastfed x 1 year CALL CENTER SUPPORT CONSULTANT HISTORY Have you ever been diagnosed with a sexually transmitted disease? No Please select all that are applicable: Have you ever had Pelvic Inflammatory Disease? No Have you had an abnormal PAP smear? No Date & Result of last PAP smear: 2024- WNL and HPV negative Have you ever had an abnormal Mammogram? No Date & result of your last mammogram: Do you have pelvic pain? Yes -Internal How many times per week do you have intercourse? 5 Do you have pain with intercourse? Yes Do you use lubricants with intercourse? Water based Do you have pain with bowel movements? No Do you have pain with a full bladder? No MENSTRUAL HISTORY LMP: Other Menarche: Age 12 Contraception: None Cycle length: 29 -Were somewhat irregular prior to starting the letrozole (~35-40 days cycles) Now regular on letrozole/Clomid Describe your bleeding: Heavy Dysmenorrhea: Yes -No evidence of endometriosis on laparoscopy per patient (report not available to review) ENDOCRINE/INFERTILITY HISTORY Duration of infertility: 1-5 years Coital Activity/week: 5 Nipple Discharge: No Vision changes: No Headaches: No Excess hair growth: No Excessive hair loss: No Acne: No Oily skin: Yes Recent weight change Weight gain: Yes -Fluctuates ~ 20 lbs Weight loss: No Exercise more than 3 times a week: No PMH Medical History[1] MEDICATIONS Medications Ordered Prior to Encounter[2] PSH Surgical History[3] PSYCH HISTORY Have you ever been diagnosed with a mental health Issue? Yes -Anxiety/depression, on sertraline Have you ever been hospitalized for a mental health disorder? 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 No Do you have a history of domestic violence? No Do you feel safe at home? Yes Do you have a history of any negative sexual experience such as incest or rape? 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 Tadalafil - 10mg as needed Injuries: No STD: No Please select all that are applicable: SA: Yes SA Results: Yes -Done at [facility] 2023- reports was told normal, no report available to review today 2.5 cc 38 mil/mL 54% motility 11% normal morph TMC=51 million FAMILY HISTORY Family History[5] CANCER HISTORY Breast: No Ovarian: No Colon: No Endometrial: No FAMILY VTE HISTORY Family History of Blood Clots: No GENETIC HISTORY Ethnic Background Patient: Partner: Genetic Disease in Family Patient: No Partner: No Defects in Family Patient: No Partner: No Genetic screening performed previously: None BMI: BMI Readings from Last 1 Encounters: 01/03/25 40.84 kg/m VITALS: BP 132/78 Pulse 73 Temp 36.6 C (97.8 F) (Temporal) Ht 1.727 m (5' 8 ) Wt 122 kg (268 lb 9.6 oz) LMP 12/26/2024 BMI 40.84 kg/m ASSESSMENT 34 y.o. female with secondary infertility x 3 years, suspected oligoovulation and regular ovulation x 7 cycles with letrozole/Clomid and the following pertinent medical issues: obesity, depression . Partner SA: Normal COUNSELING We discussed causes of infertility including hormonal, egg quality issues, structural problems such as endometriosis, adhesions, or tubal problems, uterine factors such as polyps or fibroids, and sperm issues. Reviewed evaluation of such as well. We discussed various methods for achieving in some detail including, ovulation induction, insemination, superovulation and IVF. We discussed that unexplained infertility likely represents a subclinical form of infertility that we cannot diagnosis using our conventional testing techniques. This does not mean that there is no reason for the infertility, just that we cannot with our current technology discover the reason for the infertility. Therefore, our treatments are empiric and our goal is to improve both the quality and quantity of follicular development and also the quality and quantity of sperm that is present in the uterus. We therefore recommend Clomid and intrauterine insemination as the first line treatment in an attempt to improve both sperm and egg quality. It is possible that by slightly improving the sperm and slightly improving the egg that we can improve the chances of conception. Reviewed lifestyle factors that may influence fertility Routine Testing Fertility Center STDs Within 1 year Genetic carrier Waiver/Completed T&S Within 1 year AMH Within 1 year TSH Within 1 year Rubella/Varicella Within 5 years PLAN Orders Placed This Encounter Procedures Sonohysterogram US sonohysterogram POCT , urine manually resulted Intimate Exam Performed: No, an intimate exam was not performed at this encounter. GENETIC SCREENING PATIENT Waiver PARTNER Yes Semen Analysis: Completed previous Yes Genetic screening: Waiver FOLLOW UP Consults: Financial consult Chart to primary nurse for care coordination and patient check list/education Enroll in Engaged MD Take vitamins, vitamin D 2000 IUs daily Discussed that pap and mammogram must be updated per ACOG guidelines before treatment can begin Discussed that treatment cannot proceed until checklist items are complete 6 week follow up with Any provider Additional testing for BMI < 18 or > 40: Yes Already has had CBC/CMP MD Completion: Ectopic Risk: No Medically Complex: No Fertility Plan Update: Patient and partner have completed all recommended testing for infertility, including laparoscopy with Dr. Broderick Recommend patient get operative report for me to review Also recommend SIS with bubble test if patient desires further assessment- does have irregular periods/abnormal bleeding As they have unexplained infertility, would recommend Clomid 100 mg/IUI (vs. Letrozole IUI) for initial treatment x 3 cycles However, patient currently cannot afford IUI or IVF They will schedule virtual FUV if interested in proceeding with IUI In the meantime recommend taking a break from OI meds for at least 2 months and trying lifestyle modifications Will need preconception screening including STDs for both patient and partner if they want to proceed with IUI or IVF in the future. Robbie Lopez 01/03/2025 11:05 AM [1] History reviewed. No pertinent past medical history. [2] Current Outpatient Medications on File Prior to Visit Medication Sig Dispense Refill metFORMIN (Glucophage) 500 mg tablet 1 tablet (500 mg). No current facility-administered medications on file prior to visit. [3] History reviewed. No pertinent surgical history. [4] Social History Tobacco Use Smoking status: Never Smokeless tobacco: Never Substance Use Topics Alcohol use: Never Drug use: Never [5] No family history on file. documented in this encounter [facility] Work Phone: 01-03-2025 Instructions Robbie Lopez MD - 01/03/2025 10:45 AM EDT ASSESSMENT 34 y.o. female with secondary infertility x 3 years, suspected oligoovulation and regular ovulation x 7 cycles with letrozole/Clomid and the following pertinent medical issues: obesity, depression . Partner SA: Normal COUNSELING We discussed causes of infertility including hormonal, egg quality issues, structural problems such as endometriosis, adhesions, or tubal problems, uterine factors such as polyps or fibroids, and sperm issues. Reviewed evaluation of such as well. We discussed various methods for achieving in some detail including, ovulation induction, insemination, superovulation and IVF. We discussed that unexplained infertility likely represents a subclinical form of infertility that we cannot diagnosis using our conventional testing techniques. This does not mean that there is no reason for the infertility, just that we cannot with our current technology discover the reason for the infertility. Therefore, our treatments are empiric and our goal is to improve both the quality and quantity of follicular development and also the quality and quantity of sperm that is present in the uterus. We therefore recommend Clomid and intrauterine insemination as the first line treatment in an attempt to improve both sperm and egg quality. It is possible that by slightly improving the sperm and slightly improving the egg that we can improve the chances of conception. Reviewed lifestyle factors that may influence fertility Routine Testing Fertility Center STDs Within 1 year Genetic carrier Waiver/Completed T&S Within 1 year AMH Within 1 year TSH Within 1 year Rubella/Varicella Within 5 years PLAN Orders Placed This Encounter Procedures Sonohysterogram US sonohysterogram POCT , urine manually resulted Intimate Exam Performed: No, an intimate exam was not performed at this encounter. GENETIC SCREENING PATIENT Waiver PARTNER Yes Semen Analysis: Completed previous Yes Genetic screening: Waiver FOLLOW UP Consults: Financial consult Chart to primary nurse for care coordination and patient check list/education Enroll in Engaged MD Take vitamins, vitamin D 2000 IUs daily Discussed that pap and mammogram must be updated per ACOG guidelines before treatment can begin Discussed that treatment cannot proceed until checklist items are complete 6 week follow up with Any provider Additional testing for BMI < 18 or > 40: Yes Already has had CBC/CMP MD Completion: Ectopic Risk: No Medically Complex: No Fertility Plan Update: Patient and partner have completed all recommended testing for infertility, including laparoscopy with Dr. Broderick Recommend patient get operative report for me to review Also recommend SIS with bubble test if patient desires further assessment- does have irregular periods/abnormal bleeding As they have unexplained infertility, would recommend Clomid 100 mg/IUI (vs. Letrozole IUI) for initial treatment x 3 cycles However, patient currently cannot afford IUI or IVF They will schedule virtual FUV if interested in proceeding with IUI In the meantime recommend taking a break from OI meds for at least 2 months and trying lifestyle modifications Will need preconception screening including STDs for both patient and partner if they want to proceed with IUI or IVF in the future. Robbie Lopez 01/03/2025 11:05 AM documented in this encounter [facility] Work Phone: 12-18-2024 History of Present illness Narrative Reason for Appointment: Patient ID: Chayo Ramires is a 34 y.o. female who presents for Mole removal Patient presents today for Acute Visit. MEDICATIONS Current Outpatient Medications Medication Instructions D-400 10 MCG (400 UNIT) tablet TAKE 2 TABLETS BY MOUTH ONCE DAILY FOR 30 DAYS metFORMIN XR (GLUCOPHAGE-XR) 500 mg, Oral, Daily with evening meal, Do not crush, chew, or split. omeprazole (PRILOSEC) 20 mg, Oral, Daily RT sertraline (ZOLOFT) 50 mg, Oral, Every 24 hours ALLERGIES No Known Allergies [...] nursing note reviewed. Exam conducted with a merchant miller present. Vitals: Estimated body mass index is 40.35 kg/m as calculated from the following: Height as of 06/11/24: 5' 8 . Weight as of this encounter: 265 lb 6.4 oz. BP: 118/72 Patient's last menstrual period was 11/27/2024 (exact date). ASSESSMENT & PLAN ICD-10-CM 1. Skin mole D22.9 Skin Tag Removal: Patient presents today for skin tag removal. Patient signed consents for procedure. Patient was placed in dorsal lithotomy position and was draped in normal fashion. Area cleansed with alcohol, lidocaine injected after allowing sufficient time to take affect. leaf size picker and scissors used to remove affected area. Placed in formalin and sent to pathology. Post-procedure instructions given. Follow Up: as needed Documented by Kita Griggs LPN on behalf of: Israel Broderick DO documented in this encounter [facility] 12-10-2024 History of Present illness Narrative Reason for Appointment: Patient ID: Chayo Ramires is a 34 y.o. female who presents for Gynecologic Exam Patient presents today for Annual Exam. MEDICATIONS Current Outpatient Medications Medication Instructions D-400 [...] Constitutional: Appearance: Normal appearance. She is well-developed. Genitourinary: Vulva normal. Breasts: Breasts are soft. Right: Normal. Left: Normal. Cardiovascular: Rate and Rhythm: Normal rate and [...] nursing note reviewed. Exam conducted with a merchant miller present. Vitals: Estimated body mass index is 40.01 kg/m as calculated from the following: Height as of 06/11/24: 5' 8 . Weight as of 07/23/24: 263 lb 1.9 oz. BP: No LMP recorded. ASSESSMENT & PLAN ICD-10-CM 1. Well woman exam with routine gynecological exam Z01.419 POCT urinalysis dipstick manually resulted Pap Smear HPV DNA probe, amplified Annual Exam: Patient presents today for an annual exam. Patient states she is doing well and has no complaints. Pap was obtained without difficulty. Orders Placed This Encounter Procedures HPV DNA probe, amplified POCT urinalysis dipstick manually resulted Follow Up: Patient is to return in one year for annual unless needed otherwise. Documented by Melanie Almaraz MA on behalf of: Israel Broderick DO documented in this encounter [facility] 11-12-2024 History of Present illness Narrative Reason for Appointment: Patient ID: [...] not have a referral appointment with Dr. Lopez until December. Patient will switch to Clomid with next cycle if she does not conceive with this last round of Femara. Patient will start out at 100mg of Clomid. Patient to return to clinic in 4 weeks for annual. Documented by Karoline Casillas LPN on behalf of: Israel Broderick DO documented in this encounter [facility] 07-23-2024 History of Present illness Narrative Reason for Appointment: Patient ID: [...] nursing note reviewed. Exam conducted with a merchant miller present. Vitals: Estimated body mass index is [...] 16.8. Pt to be referred to Dr Lopez. Documented by Kita Griggs LPN on behalf of: Israel Broderick DO documented in this encounter [facility] 06-11-2024 History of Present illness Narrative Reason for Appointment: Patient ID: [...] nursing note reviewed. Exam conducted with a merchant miller present. Vitals: Estimated body mass index is [...] Israel Broderick DO documented in this encounter [facility] 05-03-2024 History of Present illness Narrative Reason for Appointment: Patient ID: Chayo Ramires is a 34 y.o. female who presents for Pre-op Visit Patient presents today for Pre Op appointment. Patient is scheduled to undergo Diagnostic Laparoscopy, possible FLAKITO, possible FOE, possible BSO, possible Chromopertubation on 06/01/[address] Broderick at [facility]. MEDICATIONS Current Outpatient Medications Medication Instructions D-400 [...] nursing note reviewed. Exam conducted with a merchant miller present. Vitals: There is no height or [...] reviewed, and patient is to proceed to [facility] OR. Follow Up: Patient is to follow up between 1-2 weeks post operative to assess proper healing and recovery from procedure. Documented by Karoline Casillas LPN on behalf of: Israel Broderick DO documented in this encounter [facility] 04-10-2024 History of Present illness Narrative Reason for Appointment: Patient ID: [...] nursing note reviewed. Exam conducted with a merchant miller present. Vitals: There is no height or weight on file to calculate BMI. BP: 130/78 Patient's last menstrual period was 03/30/2024. ASSESSMENT & PLAN ICD-10-CM 1. Encounter for fertility planning Z31.89 2. PCOS (polycystic ovarian syndrome) E28.2 3. Pelvic pain in female R10.2 Patient presents today to discuss fertility. Pt having pelvic pain thinking endometriosis- discussed dx lap with poss FLAKITO, poss FOE, poss chromopertubation. 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 PCP: MELISSA Noyola Referring Physician: JAYLAN Ward [address] [place], [place] [id number] documented in this encounter [facility] 03-12-2024 Miscellaneous Notes Left message for patient to remind them to bring their most current medication list with them to their appointment. documented in this encounter [facility] 03-12-2024 Telephone encounter Note Left message for patient to remind them to bring their most current medication list with them to their appointment. [facility] 10-11-2022 Evaluation note Encounter Date Diagnosis [...] the onset of your symptoms of COVID [employer] Other Chief complaint+Reason for visit Narrative* Chief Complaint sinus pressure, coug h Reason for Visit Contact with and (matt spected) exposure to covid-[address] [facility] Work Phone: Evaluation note* Diagnosis Onset Date Resolution Status Contact with and (suspected) exposure to covid-19 acute Sore throat acute Sinusitis noneactive [facility] Work Phone: Evaluation note* Diagnosis Postoperative visit S/P laparoscopic procedure Other postprocedural status documented in this encounter [facility] HealthcareEvaluation note* Diagnosis PCOS (polycystic ovarian syndrome) Polycystic ovaries Encounter for fertility planning documented in this encounter [facility] HealthcareEvaluation note* Diagnosis Pre-op examination Pelvic pain in female Unspecified symptom associated with female genital organs Fallopian tube disorder Unspecified noninflammatory disorder of ovary, fallopian tube, and broad ligament documented in this encounter [facility] HealthcareEvaluation note* Diagnosis Encounter for fertility planning PCOS (polycystic ovarian syndrome) Polycystic ovaries Pelvic pain in female Unspecified symptom associated with female genital organs Abnormal uterine bleeding (AUB) documented in this encounter [facility] HealthcareEvaluation note* Diagnosis Heart palpitations- Primary Palpitations [facility] Diagnosis Encounter for fertility planning Acute cystitis without hematuria PCOS (polycystic ovarian syndrome) Polycystic ovaries Fallopian tube disorder Unspecified noninflammatory disorder of ovary, fallopian tube, and broad ligament documented in this encounter [facility] HealthcareEvaluation note* Diagnosis Well woman exam with routine gynecological exam Routine gynecological examination documented in this encounter [facility] HealthcareEvaluation note* Diagnosis Skin mole documented in this encounter [facility] HealthcareEvaluation noteNo assessment information [facility] Work Phone: Evaluation note* Diagnosis Encounter for preprocedural laboratory examination- Primary Abnormal uterine bleeding Unspecified disorder of menstruation and other abnormal bleeding from female genital tract documented in this encounter [facility] Work Phone: Evaluation note* Diagnosis Amenorrhea Absence of menstruation Missed menses , unspecified gestational age ([facility]) Encounter for supervision of normal first in first trimester ([facility]) 9 weeks gestation of ([facility]-HCC) Vitamin D deficiency History of hypertension Personal history of other diseases of circulatory system documented [facility] Diagnosis 13 weeks gestation of ([facility]) Second trimester ([facility]-HCC) state, incidental Acute nonintractable headache, unspecified headache type documented in this encounter [facility]* Diagnosis 15 weeks gestation of ([facility]-HCC) Second trimester ([facility]-HCC) state, incidental Acute nonintractable headache, unspecified headache type BP check Screening for hypertension Gestational hypertension, antepartum ([facility]-HCC) induced hypertension, antepartum ([facility]-HCC) Transient hypertension of , antepartum documented in this encounter [facility] HealthcareInstructionsNot on filedocumented in this encounterProMedior Health SystemInstructionsNot on filedocumented in this encounterProCorey [facility] SystemInstructionsNot on filedocumented in this encounterProCorey Hospital [facility] Family History Relationship Condition Age at Onset Recorded Date/T ellis father Hypertension Unknown Diabetes mellitus Unknown Not Specified Hypertension Unknown Relationship Condition Age at Onset Recorded Date/T ellis father Hypertension Unknown Diabetes mellitus Unknown mother Hypertension Unknown Advance Directives Advance Directive Response Recorded Date/ Time Advance Directives No November 23 12:20pm Summary Purpose Additional Source Comments REASON FOR VISIT (unrecogniz ed section and content) Reason Comments Post-op Visit Pt present today for post operative visit. Pt had a Dx lap on 06/01/2024. 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 SCHE D W/ PT LABS HM AT [facility] LABS AT PCP Specialty Diagnoses / Procedures Referred By Radha t Referred To Contact Cardiology Diagnoses Heart palpitations Sabiha Deleon, GUEST SERVICE TEAM LEADER-MECHANICAL EQUIPMENT TEST ENGINEER [address] [place] [address] [facility] [address] [place] [address] Referral ID Status Reason Start Date Expiration Date Visits Requested Visits Authorized [id number] Pending Review Specialty Services Required 01/25/2024 01/24/2025 1 1 Reason Comments Follow-up Reason Comments Gynecologic Exam Reason Comments Mole removal Reason Comments Infertility Reason Comments Amenorrhea Reason Comments Routine Visit Care Teams (unrecognized sec tion and content) Team Status: Active Member Role Status Dates PHYSICIAN NO FAMILY Primary Care Provider Active Team Status: Inactive Member Role Status Dates PHYSICIAN NO FAMILY Primary Care Provider Active Start: November 24, 2023 End: November 24, 2023 Pinky Singh NP-C Attending Provider Active S tart: November 24, 2023 End: November 24, 2023 Paper Colorer Relationship Specialty Start Date End Date Kromer, Judy PCP - [facility] [place] TRIAGE RN 02/20/24 Paper Colorer Relationship Specialty Start Date End Date Kromer, Judy PCP - [facility] [place] TRIAGE RN 02/20/24 Paper Colorer Relationship Specialty Start Date End Date Kromer, Judy PCP - [facility] [place] TRIAGE RN 02/20/24 Paper Colorer Relationship Specialty Start Date End Date Kromer, Judy PCP - [facility] [place] TRIAGE RN 02/20/24 Paper Colorer Relationship Specialty Start Date End Date Kromer, Judy PCP - [facility] [place] TRIAGE RN 02/20/24 Paper Colorer Relationship Specialty Start Date End Date Kromer, Judy PCP - [facility] [place] TRIAGE RN 02/20/24 Paper Colorer Relationship Specialty Start Date End Date Kromer, Judy PCP - [facility] [place] TRIAGE RN 02/20/24 Paper Colorer Relationship Specialty Start Date End Date [facility] [address] [place], [place] PCP - General Family Medicine 11/12/22 Paper Colorer Relationship Specialty Start Date End Date [facility] [address] [place] PCP - General Family Medicine 11/12/22 Paper Colorer Relationship Specialty Start Date End Date [facility] [address] [place], [place] PCP - General Family Medicine 11/12/22 Paper Colorer Relationship Specialty Start Date End Date Kromer, Judy PCP - [facility] [place] TRIAGE RN 02/20/24 Paper Colorer Relationship Specialty Start Date End Date Krolman, Judy PCP - [facility] [place] [facility] 02/20/24 Paper Colorer Relationship Specialty Start Date End Date KrAndres thurmanyssa PCP - [facility] [place] [facility] 02/20/24 Paper Colorer Relationship Specialty Start Date End Date Kromer, Judy PCP - [facility] [place] [facility] 02/20/24 Team Status: Inactive Member Role Status Dates Israel Broderick DO Attending Provider Active Start : December 18, 2024 End: December 18, 2024 Paper Colorer Relationship Specialty Start Date End Date June Trinidad LPN Licensed Practical Nurse Reproductive Endocrinology and Infertility 01/01/25 Paper Colorer Relationship Specialty Start Date End Date KrAndres thurmanyssa PCP - [facility] [place] [facility] 02/20/24 Paper Colorer Relationship Specialty Start Date End Date Krolman, Judy PCP - [facility] [place] [facility] 02/20/24 Paper Colorer Relationship Specialty Start Date End Date Krolman, Judy PCP - [facility] [place] [facility] 02/20/24 Goals (unrecognized section and content) Goals may be documented in a n alternate section INFORMATION SOURCE (unrecogn ized section and content) DATE CREATED AUTHOR 11/06/2024 [facility] DATE CREATED AUTHOR AUTHOR'S ORGANIZ ATION 12/29/2024 [facility] DATE CREATED AUTHOR AUTHOR'S ORGANIZ ATION 01/07/2025 [facility] DATE CREATED AUTHOR AUTHOR'S ORGANIZ ATION 04/13/2025 [facility] d[facility] Special[facility] [place] FOR RECORDS PERTAINING TO PATIENTS WHO ARE [...] BE BASED ON THE PRIMARY CLINICAL RECORDS. [employer] [facility]. provides no warranty or guarantee of the accuracy or completeness of information in this document.
[2025-04-17 13:26] LABS: Hematocrit 35.4 % (36.0-48.0); Hemoglobin 11.9 g/dL (12.0-16.0); Immature Granulocytes Abs Auto 0.09 10^3/uL (0.00-0.03); Immature Granulocytes Pct Auto 0.7 % (0.0-0.5); Lymphocytes Absolute Auto 2.0 10^3/uL (1.2-3.8); Mean Corpuscular HGB Conc 33.6 g/dL (29.9-35.2); Mean Corpuscular Hemoglobin 31.3 pg (26.7-34.0); Mean Corpuscular Volume 93.2 fL (81.0-99.0); Platelet Count 251 10^3/uL (150-450); Red Blood Count 3.80 10^6/uL (4.20-5.40); White Blood Count 13.0 10^3/uL (4.0-11.0)
[2025-04-17 13:39] LABS: Aspartate Amino Transferase 20 U/L (15-37); Blood Urea Nitrogen 7.0 mg/dL (7.0-18.0); Estimated GFR (African America >60 (>=60 mL/min/1.73m^2); Estimated GFR (Non-African Ame >60 (>=60 mL/min/1.73m^2); Uric Acid 5.1 mg/dL (2.6-6.0)
[2025-04-17 13:40] LABS: INR 0.95; Partial Thromboplastin Time 26.5 sec (22.3-36.2); Prothrombin Time 10.1 sec (9.0-11.6)
== END 2025-04-17 12:54 | disposition home or self-care (01) ==
LOC: LAB 12:55
PROVIDERS: PCP Nurse Practitioner; Visit Provider Obstetrics & Gynecology
DX: O13.9 Gestational [pregnancy-induced] hypertension without significant proteinuria, unspecified trimester (principal)
CPT/HCPCS: 36415; 82565; 83615; 84450; 84520; 84550; 85025; 85610; 85730

== ENCOUNTER 2025-04-21 09:19 | Outpatient (REF) | payer MEDICAID, SELFPAY ==
--- OUTSIDE RECORDS SUMMARY | 2025-03-05 09:15 | XMS_ITS ---
Author Organization [facility] vices Address [address] [place], [place] [phone] Care Team Providers Care Truck Cleaner Name Role Phone Sabiha Aviles Primary Care Provider [phone] REASON FOR VISIT 3m depression, anxiety Social History Sex Assigned At : Social History Observation Description Sex Assigned At Female Encounters Encounter Location Date Provider Diagnosis East [address] [place] [phone] 03/05 Sabiha Aviles Plan Of Treatment No Information Progress Notes * Chayo RAMIRESDOB: 2 (35 yo F)Acc No.[id number]:03/05/2025 Medical Note Patient: Trent MORALESChayo Biggs Provider: Jill Aviles :1990 A ge:34 Y S ex:Female Date:03/05/2025 Address:[address] [place], [place] [phone] Subjective: * Chief Complaints: * 1 . 3m depression, anxiety. * Medical History: Objective: * Vitals: Assessment: Plan: * Treatment: * Billing Information: * Visit Code: * Procedure Codes: * Electronic signature of THEA Turk on 04/21/2025 at 09:25 AM EDT Sign off status: Pending * Provider: Jill Aviles Date: 03/05/2025 Generated for Carol grewal/Jeannie/eTransmitting on: 04/21/2025 09:25 AM EDT
--- OUTSIDE RECORDS SUMMARY | 2025-04-11 10:30 | XMS_ITS | Encounter Summary ---
Author Organization [facility] Address [address] [place] [address] Care Team Providers Care General Assembler Installer Name Role Phone Judy Caal Unavailable Unavailable Reason for Visit * Reason Comments Routine Visit Encounter Details Date Type Department Care Team (Latest Contact Info) Description 04/11/2025 10:30 AM EDT Routine [facility] [place] [facility] [address] [place] [phone] Caesar Broderick DO [address] [facility] [place] [address] 15 weeks gestation of (HHS-HCC); Second trimester (HHS-HCC); Acute nonintractable headache, unspecified headache type; BP check; Gestational hypertension, antepartum (HHS-HCC); induced hypertension, antepartum (HHS-HCC) Social History Tobacco Use Types Packs/Day Years Used Date Smoking Tobacco: Never Assessed Estimated Date of Delivery Comme nts Yes 10/02/2025 Based on last me nstrual period of 12/26/2024 Sex and Gender Information Value Date Recorded Sex Assigned at Not on file Legal Sex Female 9:48 AM EDT Gender Identity Not on file Sexual Orientation Not on file documented as of this encounter Last Filed Vital Signs Vital Sign Reading Time Taken Comments Blood Pressure 140/86 04/11/2025 11:00 AM EDT Pulse - - Temperature - - Respiratory Rate - - Oxygen Saturation - - Inhaled Oxygen Concentration - - Weight 127 kg (280 lb 6.4 oz) 04/11/2025 11:00 A M EDT Height - - Body Mass Index 42.63 06/11/2024 2:39 PM EDT documented in this encounter Progress Notes * Karoline Casillas, QUALITY CONTROL ASSOCIATE - 04/11/2025 10:30 AM EDT Reason for Appointment: Patient ID: Chayo Ramires is a 35 y.o. female who presents for Routine Visit Patient presents today for Return OB appointment. MEDICATIONS Current Outpatient Medications Medication Instructions magnesium oxide (MAG-OX) 400 mg, Oral, Daily sertraline (ZOLOFT) 50 mg, Every 24 hours ALLERGIES No Known Allergies [...] nursing note reviewed. Exam conducted with a engineer technician present. Vitals: Estimated body mass index is 42.63 kg/m?? as calculated from the following: Height as of 06/11/24: 5' 8 . Weight as of this encounter: 280 lb 6.4 oz. BP: 140/86 Patient's last menstrual period was 12/26/2024. ASSESSMENT & PLAN ICD-10-CM 1. 15 weeks gestation of ([facility]) Z3A.15 POCT urinalysis dipstick manually resulted 2. Second trimester ([facility]) Z34.92 POCT urinalysis dipstick manually resulted 3. Acute nonintractable headache, unspecified headache type R51.9 4. BP check Z01.30 Patient presents today for a routine obstetrics appointment. Patient is currently 15w1d with a Estimated Date of Delivery: 10/02/25. Patient is having persistent elevated HTN. Discussed patient being referred to [facility] for management and recommendations for Gestational HTN. Patient is agreeable with referral. Patient to be started on Labetalol 200mg BID. Patient given labs and 24 hour urine to have obtained for baseline testing. Patient aware that once lab results are obtained then referral will be completed, so then all results can be sent to [facility] at onetime. Patient to return to clinic in 4 weeks for routine OB appointment. Patient to reach out to office with any concerns/questions. Documented by Karoline Casillas LPN on behalf of: Caesar Broderick DO documented in this encounter Plan of Treatment Upcoming Encounters Date Type Department Care Team (Late st Contact Info) Description 04/25/2025 11:10 AM EDT Routine [facility] [address] [place] [address] Caesar Broderick DO [address] [place] [address] 12/16/2025 3:00 PM EDT Office Visit [facility] [address] [place] [address] Caesar Broderick, DO [address] [place] [address] [address] [place], [place] [id number] Scheduled Orders Name Type Priority Associated Diagnoses Orde r Schedule Creatinine Lab Routine Gestational hypertension, antepartum (HHS-HCC) induced hypertension, antepartum (HHS-HCC) Expected: 04/11/2025 (Approximate), Expires: 04/11/2026 Protein, urine, 24 hour Lab Routine Gestational hypertension, antepartum (HHS-HCC) induced hypertension, antepartum (HHS-HCC) Expected: 04/11/2025 (Approximate), Expires: 04/11/2026 Pt and ptt Lab Routine Gestational hypertension, antepartum (HHS-HCC) induced hypertension, antepartum (HHS-HCC) Expected: 04/11/2025, Expires: 04/11/2026 CBC and differential Lab Routine Gestational hypertension, antepartum (HHS-HCC) induced hypertension, antepartum (HHS-HCC) Expected: 04/11/2025 (Approximate), Expires: 04/11/2026 Uric acid Lab Routine Gestational hypertension, antepartum (HHS-HCC) induced hypertension, antepartum (HHS-HCC) Expected: 04/11/2025 (Approximate), Expires: 04/11/2026 Lactate dehydrogenase Lab Routine Gestational hypertension, antepartum (HHS-HCC) induced hypertension, antepartum (HHS-HCC) Expected: 04/11/2025, Expires: 04/11/2026 ALT Lab Routine Gestational hypertension, antepartum (HHS-HCC) induced hypertension, antepartum (HHS-HCC) Expected: 04/11/2025 (Approximate), Expires: 04/11/2026 AST Lab Routine Gestational hypertension, antepartum (HHS-HCC) induced hypertension, antepartum (HHS-HCC) Expected: 04/11/2025 (Approximate), Expires: 04/11/2026 BUN Lab Routine Gestational hypertension, antepartum (HHS-HCC) induced hypertension, antepartum (HHS-HCC) Expected: 04/11/2025, Expires: 04/11/2026 documented as of this encounter Procedures Procedure Name Priority Date/Time Associated Diagnosis Comments POCT URINALYSIS DIPSTICK Routine 04/11/2025 11:06 AM EDT 15 weeks gestation of ([facility]-HCC) Second trimester ([facility]-HCC) documented in this encounter Results * POCT urinalysis dipstick manually resulted (04/11/2025 11:06 AM EDT) Color, UA Yellow Clarity, UA Clear Glucose, UA Negative Negative - 2000(110) ++++ mg/dL Bilirubin, UA Negative Negative - 4(70) +++ mg/dL Ketones, UA Negative Negative - 160(16) ++++ mg/dL Spec Grav, UA 1.015 1 - 1.03 Blood, UA Negative Negative - 50 Surjit/mcL pH, UA 6.0 5 - 9 Protein, UA Negative Negative - 2000(20) ++++ mg/dL Urobilinogen, UA 1.0 0.2 - 12 mg/dL Leukocytes, UA Negative Negative - 500+++ Kaleigh/mcL Nitrite, UA Negative Negative - Positive Urine 04/11/2025 11:0 6 AM EDT Caesar Broderick DO POINT OF CARE TEST ENTER/EDIT OR DERABLES Final Result documented in this encounter Visit Diagnoses Diagnosis 15 weeks gestation of ([facility]-HCC) Second trimester ([facility]-HCC) state, incidental Acute nonintractable headache, unspecified headache type BP check Screening for hypertension Gestational hypertension, antepartum ([facility]) induced hypertension, antepartum ([facility]) Transient hypertension of , antepartum documented in this encounter Care Teams General Assembler Installer Relationship Specialty Start Date End Date Judy Caal PCP - [facility] RN MATERNAL CHILD 02/20/24 documented as of this encounter
--- OUTSIDE RECORDS SUMMARY | 2025-04-21 09:25 | XMS_ITS | Encounter Summary ---
Author Organization [facility] Address [address] [place] [address] Care Team Providers Care Manager Of Software Name Role Phone Judy Caal Unavailable Unavailable Encounter Details Date Type Department Care Team (Late st Contact Info) Description 12/25/2024 Orders Only LIANA HEAD [facility] [place] [address] [place] [address] Luz Marina Velez LPN [address] [employer] [facility] Jose [place], [facility]11 Social History Tobacco Use Types [...] Routine LIANA HEAD [facility] [place] [address] [place] [address] Caesar Broderick, DO [address] [place], [place] [id number] 12/16/2025 3:00 PM EDT Office Visit LIANA HEAD [address] [place] [address] Caesar Broderick DO [address] [place], [place] [id number] documented as of this encounter Procedures Procedure Name Priority Date/Time Associated Diagnosis Comments PAP SMEAR Routine 12/10/2024 12:00 AM EDT documented in this encounter Results * Pap Smear (12/10/2024 12:00 AM EDT) Swab Cervical swab / Unknown us Davie Nurse [facility] CYTOLOGY ORDERABLES Final Result EXTERNAL LAB documented in this encounter Visit Diagnoses Not on filedocumented in this encounter Care Teams Manager Of Software Relationship Specialty Start Date End Date Judy Caal PCP - [facility] SENIOR REGULATORY AFFAIRS SPECIALIST 02/20/24 documented as of this encounter
--- OUTSIDE RECORDS SUMMARY | 2025-04-21 09:25 | XMS_ITS | Encounter Summary ---
Author Organization [facility] Address [address] [facility] [place] [address] Care Team Providers Care Filter Machine Operator Name Role Phone Judy Caal Unavailable Unavailable Encounter Details Date Type Department Care Team (Late st Contact Info) Description 01/03/2025 Abstract LIANA HEAD [facility] [place] [address] Tsering Willingham MA Social History Tobacco [...] 04/25/2025 11:10 AM EDT Routine LIANA HEAD [address] [place] [address] [place] [address] Caesar Broderick DO [address], [place] [id number] 12/16/2025 3:00 PM EDT Office Visit LIANA HEAD [address] [place] [address] Caesar Broderick DO [address] [place], [place] [phone] documented as of this encounter Visit Diagnoses Not on filedocumented in this encounter Care Teams Filter Machine Operator Relationship Specialty Start Date End Date Judy Caal PCP - [facility] TREE CUTTER 02/20/24 documented as of this encounter
--- OUTSIDE RECORDS SUMMARY | 2025-04-21 09:25 | XMS_ITS | Encounter Summary ---
Author Organization [facility] Address [address] [place] [address] Care Team Providers Care Rod And Tube Straightener Name Role Phone Judy Caal Unavailable Unavailable Encounter Details Date Type Department Care Team (Late st Contact Info) Description 04/17/2025 Clinisync Result Encounter [facility] External Department Unsolicited Caesar Broderick, DO [address], [facility]11 Social History Tobacco Use Types Packs/Day Years [...] 04/25/2025 11:10 AM EDT Routine [facility] HEAD [facility] [place] [address] Caesar Broderick, DO [address], [place] [address] 12/16/2025 3:00 PM [place] [address] Caesar Broderick, DO [address], [facility]11 documented as of this encounter Procedures Procedure Name Priority Date/Time Associated Diagnosis Comments TBH CREATININE Routine 04/17/2025 1:21 PM EDT [facility] PROTHROMBIN TIME INR W/O COUM Routine 04/17/2025 1:21 PM EDT [facility] AST Routine 04/17/2025 1:21 PM EDT CCF APTT Routine 04/17/2025 1:21 PM EDT ALL URIC ACID Routine 04/17/2025 1:21 PM EDT ALL LDH Routine 04/17/2025 1:21 PM EDT ALL CBC WITH AUTO DIFF Routine 04/17/2025 1:21 PM EDT ALL BUN Routine 04/17/2025 1:21 PM EDT documented in this encounter Results * ALL LDH (04/17/2025 1:21 PM EDT) LACTATE DEHYDROGENASE 117 81 - 234 U/L TB 04/17/2025 1:21 PM EDT 04/17/2025 1:22 PM EDT Narrative CLINISYNC - 04/17/2025 1:56 PM EDT us Caesar Davie DO CLINISYNC Final Result CLINIS[facility]NC TB * CCF AST (04/17/2025 1:21 PM EDT) ASPARTATE AMINO TRANSFERASE 20 15 - 37 U/L TB 04/17/2025 1:21 PM EDT 04/17/2025 1:22 PM EDT Narrative CLINISYNC - 04/17/2025 1:56 PM EDT us Caesar Davie DO CLINISYNC Final Result [facility] * ALL URIC ACID (04/17/2025 1:21 PM EDT) URIC ACID 5.1 2.6 - 6.0 mg/dL TB 04/17/2025 1:21 PM EDT 04/17/2025 1:22 PM EDT Narrative CLINISYNC - 04/17/2025 1:56 PM EDT us Caesar Davie DO CLINISYNC Final Result Performing Organization Address [facility] Co de Phone Number CL[facility]ISYNC [facility] * TB CREATININE (04/17/2025 1:21 PM EDT) CREATININE 0.56 0.55 - 1.02 mg/dL TB TB EGFR-AF GABONESE >60 >=60 mL/min/1.7 3m 2 TBH TBH EGFR-NON AF GABONESE >60 >=60 mL/min/1.7 3m 2 TBH 04/17/2025 1:21 PM EDT 04/17/2025 1:22 PM EDT Narrative CLINISYNC - 04/17/2025 1:56 PM EDT us Caesar Davie DO CLINISYNC Final Result Performing Organization Address City/[facility]/ZIP Co de Phone Number CLINIS[facility]NC [facility] * ALL BUN (04/17/2025 1:21 PM EDT) BLOOD UREA NITROGEN 7.0 7.0 - 18.0 mg/dL TB 04/17/2025 1:21 PM EDT 04/17/2025 1:22 PM EDT Narrative CLINISYNC - 04/17/2025 1:56 PM EDT us Caesar Davie DO CLINISYNC Final Result CLINISYNC TBH * CCF APTT (04/17/2025 1:21 PM EDT) PARTIAL THROMBOPLASTIN TIME 26.5 22.3 - 36.2 sec TBH 04/17/2025 1:21 PM EDT 04/17/2025 1:22 PM EDT Narrative CLINISYNC - 04/17/2025 1:54 PM EDT [facility] Final Result Performing Organization Address [facility]/ZIP Co de Phone Number [facility] * [facility] PROTHROMBIN TIME INR W/O COUM (04/17/2025 1:21 PM EDT) Pathologist [facility] PROTHROMBIN TIME 10.1 9.0 - 11.6 sec [facility] INR 0.95 TB Comment: DESIRED INR: 2.0-3.0 CONDITIONS NOT LISTED BELOW 2.5-3.5 FOR PROSTHETIC HEART VALVE REPLACEMENT 2.5-3.5 RECURRENT THROMBOSIS 04/17/2025 1:21 PM EDT 04/17/2025 1:22 PM EDT Narrative CLINISYNC - 04/17/2025 1:54 PM EDT [facility] Final Result Performing Organization Address [facility]/ZIP Co de Phone Number [facility] * (ABNORMAL) ALL CBC WITH AUTO DIFF (04/17/2025 1:21 PM EDT) TB WBC 13.0(H) 4.0 - 11.0 10 3/uL TBH TB RBC 3.80(L) 4.20 - 5.40 10 6/uL TBH TBH HGB 11.9(L) 12.0 - 16.0 g/dL TBH TBH HCT 35.4(L) 36.0 - 48.0 % TBH TBH MCV 93.2 81.0 - 99.0 fL TBH TB MCH 31.3 26.7 - 34.0 pg TBH TBH MCHC 33.6 29.9 - 35.2 g/dL TBH TBH RDW 12.3 11.0 - 15.0 % TBH TBH PLT 251 150 - 450 10 3/uL TBH TBH MPV 10.2 9.5 - 13.5 fL TBH NEUTROPHILS PERCENT AUTO 76.7(H) 43.0 - 75.0 % TBH LYMPHOCYTES PERCENT AUTO 15.4(L) 20.5 - 60.0 % TBH MONOCYTES PERCENT AUTO 4.1 1.7 - 12.0 % TBH TBH EO % 2.9 0.9 - 7.0 % TBH BASOPHILS PERCENT AUTO 0.2 0.2 - 2.0 % TBH IMMATURE GRANULOCYTES PCT AUTO 0.7(H) 0.0 - 0.5 % TBH NEUTROPHILS ABSOLUTE AUTO 9.9(H) 1.4 - 6.5 10 3/uL TBH LYMPHOCYTES ABSOLUTE AUTO 2.0 1.2 - 3.8 10 3/uL TBH MONOCYTES ABSOLUTE AUTO 0.5 0.3 - 0.8 10 3/uL TBH TBH EO # 0.4 0.0 - 0.7 10 3/uL TBH BASOPHILS ABSOLUTE AUTO 0.0 0.0 - 0.1 10 3/uL TBH IMMATURE GRANULOCYTES ABS AUTO 0.09(H) 0.00 - 0.03 10 3/uL TBH 04/17/2025 1:21 PM EDT 04/17/2025 1:22 PM EDT Narrative CLINISYNC - 04/17/2025 1:31 PM EDT Caesar Broderick DO CLINISYNC Final Result CLINISYNC TB documented in this encounter Visit Diagnoses Not on filedocumented in this encounter Care Teams Rod And Tube Straightener Relationship Specialty Start Date End Date Judy Caal PCP - [facility] [place] EXERCISE PHYSIOLOGIST CERTIFIED 02/20/24 documented as of this encounter
--- OUTSIDE RECORDS SUMMARY | 2025-04-21 09:25 | XMS_ITS | Encounter Summary ---
Author Organization [facility] tem Address [facility] [id number] [address] [place] [address] Care Team Providers Care Wood Furniture Assembler Name Role Phone Services, [facility] Primary Care Provider Encounter Details Date Type Department Care Team (Late Contact Info) Description 03/21/2024 Orders Only [facility] [address] [place] [id number] External, Scanning Provider Social History Tobacco Use [...] Encounters Date Type Department Care Team (Late Contact Info) Description 05/17/2025 7:30 AM EDT Appointment [facility] - [facility] Imaging [address] [place] [address] 05/17/2025 9:00 AM EDT Office Visit Maternal- Medicine at [facility] [address] [place] [phone] Clair Hare MD [address] [place] [address] Sheila Cruz MD [address] [place] [address] documented as of this encounter Procedures Procedure Name Priority Date/Time Associated Diagnosis Comments MULTIPLE LABS Routine 03/21/2024 11:19 AM EDT LIPID PROFILE Routine 03/21/2024 documented in this encounter Results * Multiple labs (03/21/2024 11:19 AM EDT) us Scanning Provider External CO IMAGING Final Result Performing Organization Address City/[facility] Co de Phone Number MANUALLY TRANSCRIBED RESULTS * Lipid profile (03/21/2024) External Cholesterol 153 MANUALLY TRANSCRIBED RESULTS External Cholesterol:Hdl 3.6 MANUALLY TRANSCRIBED RESULTS External Hdl Cholesterol 43 MANUALLY TRANSCRIBED RESULTS External Ldl (Calc) 82 MANUALLY TRANSCRIBED RESULTS External Triglycerides 140 MANUALLY TRANSCRIBED RESULTS Ldl/Hdl Ratio 1.9 MANUAL LY TRANSCRIBED RESULTS us Scanning Provider External LAB BLOOD ORDERABLES Edited Result - Final Performing Organization Address City/[facility] Co de Phone Number MANUALLY TRANSCRIBED RESULTS documented in this encounter Visit Diagnoses Not on filedocumented in this encounter Care Teams Wood Furniture Assembler Relationship Specialty Start Date End Date [facility], [facility] [address] [place], [place] PCP - General Family Medicine 11/03/24 documented as of this encounter
--- OUTSIDE RECORDS SUMMARY | 2025-04-21 09:26 | XMS_ITS | Encounter Summary ---
Author Organization [facility] Address [address] [facility] [place] [address] Care Team Providers Care Receiving Barn Custodian Name Role Phone Judy Caal Unavailable Unavailable Encounter Details Date Type Department Care Team (Late st Contact Info) Description 07/05/2024 Abstract LIANA HEAD [address] [place] [address] [place] [address] Karoline Casillas LPN Social History Tobacco [...] 04/25/2025 11:10 AM EDT Routine LIANA HEAD [address] [place] [address] [place] [address] Caesar Broderick DO [address], [facility] 12/16/2025 3:00 PM EDT Office Visit LIANA HEAD [address] [place] [address] Caesar Broderick DO [address] [place], [place] [phone] documented as of this encounter Visit Diagnoses Not on filedocumented in this encounter Care Teams Receiving Barn Custodian Relationship Specialty Start Date End Date Judy Caal PCP - [facility] [place] PROTECTION CHIEF [employer]USTRIAL PLANT 02/20/24 documented as of this encounter
--- OUTSIDE RECORDS SUMMARY | 2025-04-21 09:26 | XMS_ITS | Patient Health Record ---
Author Organization [facility] vices Address [address] [place], [place] [id number] Care Team Providers Care Supervisor Acoustical Tile Carpenters Name Role Phone Sabiha Aviles Primary Care Provider [phone] Noelle Chris Unavailable Judy Yepez Unavailable [phone] Allergies No Known Allergies Results Component Value Reference Range Notes VITAMIN D 25 HYDROXY Reviewed date:02/08/2025 09:10:44 AM Interpretation: Performing Lab: Notes/Report: VITAMIN D, 25 HYDROXY 22.6 30.0-100.0 ng/mL 25-OH VITAMIN D INTERPRETATION Deficiency.... <20.0 ng/ml Insufficiency..20.0-29.0 ng/ml Sufficiency....30.0-100.0 ng/ml Possible Toxicity...>150 ng/ml UNLESS OTHERWISE INDICATED, ALL TESTING PERFORMED AT: [facility] [address] [place] [address] TEACHER EMOTIONALLY IMPAIRED: BARBARA DASH M.D. CLIA NUMBER [id number] [facility] ACCREDITATION AUID [id number] CBC NO DIFF Reviewed date:02/08/2025 11:13:49 AM [...] Lab: Notes/Report: TSH 1.69 0.270-4.200 uIU/mL The [place] [employer] (HUGO) recommends the following reference [...] Nitrite - Ph 6.0 Protein - Specific [place] 1.010 Color yellow Appearance clear URINALYSIS - [...] UNLESS OTHERWISE INDICATED, ALL TESTING PERFORMED AT: [facility] [address] [place] [address] TEACHER EMOTIONALLY IMPAIRED: BARBARA DASH M.D. 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 Stress is when someone feels tense, nervous, anxious, or can't sleep at night because their mind is troubled Quite a bit patient entered data In the past year have you sp ent more than 2 nights in a row in a [place] facility, fpc, retirement center, or juvenile correctional facility? No patient [...] Problem Status W/U Status Risk Notes Problem Information temporarily unavailable Exercise counseling (Z71.82) Active confirmed Problem Information temporarily unavailable Missed period (N92.6) Active confirmed Problem Information temporarily unavailable Vitamin D deficiency (E55.9) Active confirmed Problem Information temporarily unavailable Vaginal burning (N94.9) Active confirmed Problem Information temporarily unavailable Anxiety with depression (F41.8) Active confirmed Problem Information temporarily unavailable Dietary counseling (Z71.3) Active confirmed Problem Information temporarily unavailable Female fertility problem (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) Active confirmed Vital [...] > Encounters Encounter Location Date Provider Diagnosis [address] [id number] 11/06/2024 [place] [facility] Depression with an xiety F41.8 and Hospital discharge follow-up Z09 [address] [id number] 11/12/2024 [place] [facility] Dysuria R30.[address] [id number] [facility].[address] [id number] 02/05/2025 [facility] Encounter for well ness examination Z00.00 ; Screening for cardiovascular condition Z13.6 ; Exercise counseling Z71.82 ; Nutritional counseling Z71.3 ; Screening for thyroid disorder Z13.29 and Vitamin D deficiency E55.9 [address] [place], [place] [id number] 06/24/2024 Judy Yepez Assessments Encounter Date Diagnosis [...] Insured Coverage Start Date Coverage End Date [facility] [address] [place] [address] [id number] [employer] 1 Chayo Ramires Self - patient is the insured 3 Medicaid C[employer] after Rosey [address] [place] [address] [id number] Chayo Ramires Self - patient is the insured 3 Medical (General) History Medical History History ICD Code anxiety depression Surgical History Surgery Date(Month/Year) [place] teeth laparoscopy- endometriosis
--- OUTSIDE RECORDS SUMMARY | 2025-04-21 09:26 | XMS_ITS | Encounter Summary ---
Author Organization [facility] Address [address] [place] [address] Care Team Providers Care Client Onboarding Analyst Name Role Phone Judy Caal Unavailable Unavailable Encounter Details Date Type Department Care Team (Late st Contact Info) Description 04/25/2024 Clinisync Result Encounter [facility] External Department Unsolicited Israel Broderick, DO [address] [place], [facility] Social History Tobacco Use Types Packs/Day Years [...] 04/25/2025 11:10 AM EDT Routine LIANA HEAD [facility] [place] [address] Israel Broderick, DO [address], [place] [id number] 12/16/2025 3:00 PM [place] [address] Israel Broderick, DO [address], [place] [id number] documented as of this encounter Procedures Procedure Name Priority Date/Time Associated Diagnosis Comments US PELVIS W/ TRANSVAGINAL 04/25/2024 6:34 AM EDT documented in this encounter Results * US PELVIS W/ TRANSVAGINAL (04/25/2024 6:34 AM EDT) Anatomical Region Laterality Modality Other 04/25/2024 6:34 AM EDT Narrative 04/25/2024 6:37 [place] [address] Ultrasound Report Signed Patient: ELLEN RAMIRES MR#: [id number] : 1990 Acct:[id number] Age/Sex: 34 / F ADM Date: 04/24/24 Loc: US Attending Dr: Israel Broderick D.O. Ordering Physician: Israel Broderick D.O. Date of Service: 04/24/24 Procedure(s): US pelvis w/ transvaginal Accession Number(s): [id number] cc: Israel Broderick D.O.; Sabiha Aviles [place] [address] Patient Name: ELLEN RAMIRES MRN: [id number] date: 1990 Sex: F Assigned Patient Location: Current Patient Location: Accession/Order Number: [id number] Exam Date: 04/24/2024 14:00 Report Date: 04/25/2024 [...] M.D. Signed By: 04/25/2437 DD/ 3 TD/TT: Telegraph Service Rater: Procedure Note Radiology, Radiologist, MD - 04/25/2024 [place] [address] Ultrasound Report Signed Patient: ELLEN RAMIRES R#: [id number] : 1990Acct:[id number] Age/Sex: 34 / FADM Date: 04/24/24 Loc: US Attending Dr: Israel Broderick D.O. Ordering Physician: Israel Broderick D.O. Date of Service: 04/24/24 Procedure(s): US pelvis w/ transvaginal Accession Number(s): [id number] cc: Israel Broderick D.O.; Sabiha Aviles SECURITY GUARD The [place] [id number] Patient Name: ELLEN RAMIRES MRN: [id number] date: 1990 Sex: F Assigned Patient Location: Current Patient Location: Accession/Order Number: [id number] Exam Date: 04/24/2024 14:00 Report Date: 04/25/2024 [...] M.D. Signed By:04/25/24 0637 DD/ 0634 TD/TT: Telegraph Service Rater: us Israel Davie DO [facility] Final Result documented in this encounter Visit Diagnoses Not on filedocumented in this encounter Care Teams Client Onboarding Analyst Relationship Specialty Start Date End Date Judy Caal PCP - [facility] 02/20/24 documented as of this encounter
--- OUTSIDE RECORDS SUMMARY | 2025-04-21 09:26 | XMS_ITS | Encounter Summary ---
Author Organization [facility] Address [address] [place] [address] Care Team Providers Care Information Systems Security Developer Name Role Phone Judy Caal Unavailable Unavailable Encounter Details Date Type Department Care Team (Late st Contact Info) Description 06/01/2024 Abstract LIANA HEAD [facility] [place] [address] Caesar Broderick DO [address], [facility] Social History Tobacco Use Types Packs/Day [...] 04/25/2025 11:10 AM EDT Routine LIANA HEAD [facility] [place] [address] Caesar Broderick DO [address], [facility] 12/16/2025 3:00 PM EDT Office Visit LIANA HEAD [facility] [place] [address] Caesar Broderick DO [address], [facility] documented as of this encounter Visit Diagnoses Not on filedocumented in this encounter Care Teams Information Systems Security Developer Relationship Specialty Start Date End Date Judy Caal PCP - [facility] [employer] SPECIALIST 02/20/24 documented as of this encounter
--- OUTSIDE RECORDS SUMMARY | 2025-04-21 09:26 | XMS_ITS | Encounter Summary ---
Author Organization [facility] Address [address] [place] [address] Care Team Providers Care Rn Transport Name Role Phone Judy Caal Unavailable Unavailable Encounter Details Date Type Department Care Team (Late Contact Info) Description 04/11/2025 Bamboo flowsheet LIANA HEAD [address] [place] [address] Caesar Broderick DO [address], [id number] Social History Tobacco Use Types Packs/Day Years [...] EDT Routine NOM[facility] HEAD [address] [place] [address] Caesar Broderick DO [address], [place] [id number] 12/16/2025 3:00 PM EDT Office Visit LIANA HEAD [address] [place] [address] Caesar Broderick, DO [address] [place] [address] Dr Jose Chirinos [place] [id number] documented as of this encounter Visit Diagnoses Not on filedocumented in this encounter Care Teams Rn Transport Relationship Specialty Start Date End Date Judy Caal PCP - [facility] [place] POOL NURSE 02/20/24 documented as of this encounter
--- OUTSIDE RECORDS SUMMARY | 2025-04-21 09:26 | XMS_ITS | Encounter Summary ---
Author Organization [facility] tem Address [id number] [address] [place] [address] Care Team Providers Care Telephone Service Adviser Name Role Phone Services, [facility] Primary Care Provider Reason for Referral * Diagnostic Imaging (Routine) - Pending Review Specialty Diagnoses / Procedures Referred By Controberto t Referred To Contact Maternal and Medicine Diagnoses Hypertension affecting in second trimester Procedures US [facility] with or without consult Caesar Broderick DO [address] [place], [place] [address] [place] [address] Phone: tel: fax: Maternal- Medicine at [facility] [address] [place] [address] Phone: tel: fax: Referral ID Status Reason Start Date Expiration Date V isits Requested Visits Authorized [id number] Pending Review 04/19/2025 04/19/2026 1 1 Encounter Details Date Type Department Care Team (Late st Contact Info) Description 04/19/2025 Orders Only Maternal- Medicine at [place] [address] [place] [address] Joann Moise RN Hypertension affecting in second trimester (Primary Dx) Social History Tobacco Use Types Packs/Day Years [...] Care Team (Late st Contact Info) Description 05/17/2025 7:30 AM EDT Appointment [facility] - [facility] [address] [place] [id number] 05/17/2025 9:00 AM EDT Office Visit Maternal- Medicine at [facility] [address] [place] [address] Clair Hare MD [address] [facility], [address] [place] [address] Sheila Cruz MD [address] [address] Scheduled Orders Name Type Priority Associated Diagnoses Orde r Schedule US [facility] with or without consult Imaging Routine Hypertension affecting in second trimester Expected: 05/20/2025 (Approximate), Expires: 04/19/2026 documented as of this encounter Visit Diagnoses Diagnosis Hypertension affecting in second trimester- Primary documented in this encounter Care Teams Telephone Service Adviser Relationship Specialty Start Date End Date Services, [facility] [address] [place] PCP - General Family Medicine 11/03/24 documented as of this encounter
--- OUTSIDE RECORDS SUMMARY | 2025-04-21 09:26 | XMS_ITS | Clinical Summary ---
Author Organization [facility] Address [address] [place] [address] Phone Care Team Providers Care Head Host/Hostess Name Role Phone June Trinidad LPN Unavailable [...] MMR Vaccines (1 of 1 - Stand jacqeus series) 1993 Hepatitis C Screening 2010 Hepatitis [...] age to complete this topic Insurance [address] [place] [id number] [employer] [address] [place] [id number] [facility] MEDICAID Care Teams Head Host/Hostess Relationship Specialty Start Date End Date June Trinidad LPN Licensed Practical Nurse Reproductive Endocrinology and Infertility 01/01/25
--- OUTSIDE RECORDS SUMMARY | 2025-04-21 09:26 | XMS_ITS | Encounter Summary ---
Author Organization [facility] Address [address] [place] [address] Care Team Providers Care Principal Architectural Firm Name Role Phone Judy Caal Unavailable Unavailable Encounter Details Date Type Department Care Team (Late st Contact Info) Description 06/21/2024 Abstract LIANA HEAD [facility] [place] [address] Caesar Broderick DO [address], [id number] Social History Tobacco Use Types Packs/Day Years [...] 04/25/2025 11:10 AM EDT Routine LIANA HEAD [facility] [place] [address] Caesar Broderick DO [address], [id number] 12/16/2025 3:00 PM EDT Office Visit LIANA HEAD [address] [place] [address] Caesar Broderick DO [address], [id number] documented as of this encounter Visit Diagnoses Not on filedocumented in this encounter Care Teams Principal Architectural Firm Relationship Specialty Start Date End Date Judy Caal PCP - [facility] HEADER SET UP OPERATOR 02/20/24 documented as of this encounter
--- OUTSIDE RECORDS SUMMARY | 2025-04-21 09:26 | XMS_ITS | CCD ---
Author Organization [facility] Care Team Providers Care Photo Mask Inspector Name Role Phone Pinky Singh Unavailable Judy Caal Unavailable Unavailable Unavailable Primary Care Provider Unavailabl e Services, [facility] Primary Care Provider SABIHA DELEON Referring Unavailable SERVICES, [facility] Primary Care Unava ilable TUCKER FRAIRE Attending Unavailable SABIHA DELEON Referring Unavailable SERVICES, [facility] Primary Care Unava ilable SERVICES, [facility] Primary Care Unava ilable MILLIE VILLAGRAN Attending Unavailable Israel Broderick DO Attending Provider DavieIsrael koch Attending Unavailable Davie, Israel Admitting Unavailable 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, June A Unavailable Unavailable ROBBIE LOPEZ Attending Unavailable DAVIE, ISRAEL Attending Unavailable DAVIE, ISRAEL Attending Unavailable DAVIE, ISRAEL Attending Unavailable DAVIE, ISRAEL Attending Unavailable DAVIE, ISRAEL Attending Unavailable DAVIE, ISRAEL Attending Unavailable DAVIE, ISRAEL Attending Unavailable DAVIE, ISRAEL Attending Unavailable Services, [facility] Primary Care Provider Medications Current Medications Medication Drug Class(es) Dates [...] nostril labetalol hydrochloride 200 mg oral tablet (3 sources) beta-Adrenergic Noah Start: 04-11-2025 End: 05-11-2025 take 1 tablet by mouth once in the morning labetalol (Normodyne) 200 MG tablet Indications: Second trimester (HHS-HCC) , Gestational hypertension, antepartum (HHS-HCC) Take 1 tablet (200 mg) by mouth in the morning and 1 tablet (200 mg) before bedtime. 60 tablet 04/11/2025 05/11/2025 Active magnesium oxide 400 mg oral tablet (6 sources) Start: 03-28-2025 End: 04-27-2025 take 1 [...] (20 sources) Serotonin Reuptake Inhibitor Start: 11-06-2024 End: 05-03-2024 sertraline (Zoloft) 25 MG tablet 1 (one) time each day at the same time 11/06/2024 Active Start: 11-06-2024 take 2 tablets by mo uth once daily sertraline (Zoloft) 25 MG tablet Take 50 mg by mouth 1 (one) time each day at the same time 11/06/2024 Active Start: 08-04-2023 End: 04-10-2024 take 1 tablet by mouth once daily sertraline (Zoloft) 50 MG tablet Take 50 mg by mouth Daily 08/04/2023 04/10/2024 Discontinued (Other) Completed/Discontinued Medications Medication Drug Class(es) Dates Sig [...] Hypertension complicating ; childbirth and the puerperium (2 sources) Hypertension complicating ; Translations: [Unspecified maternal hypertension, second trimester] 04-19-2025 Chronic Hypertension complicating ; childbirth and the puerperium [...] Date Documented Da te Episodic/Chronic Cardiac dysrhythmias (4 sources) Palpitations; Translations: [Palpitations] Onset: 03-13-2024 03-13-2024 Episodic Other female genital disorders (20 sources) Fallopian tube disorder; Translations: [Noninflammatory disorder of ovary, fallopian tube and broad ligament, unspecified] Onset: 07-30-2024 05-03-2024 Episodic Unclassified (2 sources) Patient encounter status 11-12-2024 Unclassified (1 source) Onset: 01-03-2025 01-03-2025 Viral infection (1 source) COVID-19 Results Test Name Value Interpretation Reference Range Facility ALL CBC WITH AUTO DIFFon BASOPHILS ABSOLUTE AUTO 0 [facility] Basophils/100 WBC (Bld) 0.2 % 0.2 - 2.0 % [facility] Eosinophils/100 WBC (Bld) 2.9 % 0.9 - 7.0 % [facility] Erythrocyte distribution width (RBC) [Ratio] 12.3 % 11.0 - 15.0 % [facility] Hematocrit (Bld) [Volume fraction] 35.4 % Low 36.0 - 48.0 % [facility] Hemoglobin (Bld) [Mass/Vol] 11.9 g/dL Low 12.0 - 16.0 g/dL [facility] IMMATURE GRANULOCYTES ABS AUTO 0.09 High [facility] Immature granulocytes/100 WBC (Bld) 0.7 % High 0.0 - 0.5 % [facility] Interpretation and review of laboratory results Abnormal [facility] LYMPHOCYTES ABSOLUTE AUTO 2 [facility] Lymphocytes/100 WBC (Bld) 15.4 % Low 20.5 - 60.0 % [facility] MCH (RBC) [Entitic mass] 31.3 pg 26.7 - 34.0 pg [facility] MCHC (RBC) [Mass/Vol] 33.6 g/dL 29.9 - 35.2 g/dL [facility] MCV (RBC) [Entitic vol] 93.2 fL 81.0 - 99.0 fL [facility] MONOCYTES ABSOLUTE AUTO 0.5 [facility] Monocytes/100 WBC (Bld) 4.1 % 1.7 - 12.0 % [facility] NEUTROPHILS ABSOLUTE AUTO 9.9 High [facility] Neutrophils/100 WBC (Bld) 76.7 % High 43.0 - 75.0 % [facility] Platelet mean volume (Bld) [Entitic vol] 10.2 fL 9.5 - 13.5 fL [facility] EO # 0.4 [facility] TB PLT 251 [facility] TB RBC 3.8 Low [facility] TB WBC 13 High [facility] e Urinalysis macro (dipstick) panel (U)on 04-11-2025 Bilirubin, UA Negative Negative - 4(70) +++ mg/dL [facility] Blood, UA Negative Negative - 50 Surjit/mcL [facility] Clarity, UA Clear [facility] Healthca re Color, UA Yellow [facility] Glucose, UA Negative Negative - 2000(110) ++++ mg/dL [facility] Interpretation and review of laboratory results Normal [facility] Ketones, UA Negative Negative - 160(16) ++++ mg/dL [facility] Leukocytes, UA Negative Negative - 500+++ Kaleigh/mcL [facility] Nitrite, UA Negative Negative - Positive [facility] pH, UA 6 5 - 9 [facility] Healthcar e Protein, UA Negative Negative - 1999(20) ++++ mg/dL [facility] Spec Grav, UA 1.015 1 - 1.03 [facility] Urobilinogen, UA 1.0 0.2 - 12 mg/dL [facility] Urinalysis macro (dipstick) panel (U)on 03-28-2025 Bilirubin, UA Negative Negative - 4(70) +++ mg/dL [facility] Blood, UA Negative Negative - 50 Surjit/mcL [facility] Clarity, UA Clear [facility] re Color, UA Yellow [facility] Glucose, UA Negative Negative - 1999(110) ++++ mg/dL [facility] Interpretation and review of laboratory results Abnormal [facility] Ketones, UA Negative Negative - 160(16) ++++ mg/dL [facility] Leukocytes, UA Positive Negative - 500+++ Kaleigh/mcL [facility] Comment on above: 2+ Nitrite, UA Negative Negative - Positive [facility] pH, UA 6 5 - 9 [facility] Health[facility] e Protein, UA Negative Negative - 1999(20) ++++ mg/dL [facility] Spec Grav, UA 1.02 1 - 1.03 [facility] Urobilinogen, UA 1.0 0.2 - 12 mg/dL [facility] Healthcar e ALL CBC WITH AUTO DIFFon BASOPHILS ABSOLUTE AUTO 0.1 [facility] Basophils/100 WBC (Bld) 0.5 % 0.2 - 2.0 % [facility] Eosinophils/100 WBC (Bld) 4 % 0.9 - 7.0 % [facility] Erythrocyte distribution width (RBC) [Ratio] 12.2 % 11.0 - 15.0 % [facility] Hematocrit (Bld) [Volume fraction] 36.4 % 36.0 - 48.0 % [facility] Hemoglobin (Bld) [Mass/Vol] 12.4 g/dL 12.0 - 16.0 g/dL [facility] IMMATURE GRANULOCYTES ABS AUTO 0.08 High [facility] Immature granulocytes/100 WBC (Bld) 0.6 % High 0.0 - 0.5 % [facility] Interpretation and review of laboratory results Abnormal [facility] LYMPHOCYTES ABSOLUTE AUTO 2.6 [facility] Lymphocytes/100 WBC (Bld) 18.4 % Low 20.5 - 60.0 % [facility] MCH (RBC) [Entitic mass] 31.5 pg 26.7 - 34.0 pg [facility] MCHC (RBC) [Mass/Vol] 34.1 g/dL 29.9 - 35.2 g/dL [facility] MCV (RBC) [Entitic vol] 92.4 fL 81.0 - 99.0 fL [facility] MONOCYTES ABSOLUTE AUTO 0.6 [facility] Monocytes/100 WBC (Bld) 4.3 % 1.7 - 12.0 % [facility] NEUTROPHILS ABSOLUTE AUTO 10.1 High [facility] Neutrophils/100 WBC (Bld) 72.2 % 43.0 - 75.0 % [facility] Platelet mean volume (Bld) [Entitic vol] 10.2 fL 9.5 - 13.5 fL [facility] EO # 0.6 [facility] Healthcar e TBH PLT 261 [facility] e TB RBC 3.[address] [facility] e [facility]H WBC 13.9 High [facility]car e [facility] Healthcar e HCG ( test) Ql (U)o n 03-01-2025 Interpretation and review of laboratory results Abnormal [facility] Preg Test, Ur Positive Negative [facility] e US OB TRANSVAGINALon 025 [...] BY: ELECTRONICALLY SIGNED BY: Mariusz Altamirano MD Normal Not Available Comment on above: Order Comment: US OB TRANSVAGINAL No LMP recorded. Urinalysis macro (dipstick) panel (U)on 03-01-2025 Bilirubin, UA Negative Negative - 4(70) +++ mg/dL [facility] Blood, UA Negative Negative - 50 Surjit/mcL [facility] Clarity, UA Clear [facility] re Color, UA Yellow [facility] Oxatis e Glucose, UA Negative Negative - 1999(110) ++++ mg/dL [facility] Interpretation and review of laboratory results Normal [facility] Ketones, UA Negative Negative - 160(16) ++++ mg/dL [facility] Leukocytes, UA Negative Negative - 500+++ Kaleigh/mcL [facility] Nitrite, UA Negative Negative - Positive [facility] pH, UA 7 5 - 9 [facility] Oxatis e Protein, UA Negative Negative - 1999(20) ++++ mg/dL [facility] Spec Grav, UA 1.005 1 - 1.03 [facility] Urobilinogen, UA 0.2 0.2 - 12 mg/dL [facility]Say e ALL PROGESTERONEon 5 PROGESTERONE 8.7 ng/mL . [facility] are Comment on above: Follicular phase 0.1 - 0.9 Luteal phase 1.8 - 23.9 Ovulation phase 0.1 - 12.0 First trimester 11.0 - 44.3 Second trimester 25.4 - 83.3 Third trimester 58.7 - 214.0 Postmenopausal 0.0 - 0.1 Performed at: - [facility] [id number] Nailhead Setter: Yobany Blount PhD, Phone: [phone] [facility] Oxatis e PATHOLOGY REQUEST FOR LAB CO RPon 12-26-2024 PATHOLOGY REQUEST FOR LAB RENA [facility] Comment on above: See report. Scanned copy available in EMR. SKIN SPECIMEN [facility] Oxatis e ALL PROGESTERONEon 5 PROGESTERONE 37.9 ng/mL . [facility] are Comment on above: Follicular phase 0.1 - 0.9 Luteal phase 1.8 - 23.9 Ovulation phase 0.1 - 12.0 First trimester 11.0 - 44.3 Second trimester 25.4 - 83.3 Third trimester 58.7 - 214.0 Postmenopausal 0.0 - 0.1 Performed at: [facility] [address] [id number] Nailhead Setter: Yobany Blount PhD, Phone: [phone] [facility] Healthcar e Pathology Request for Lab Co rpon 12-18-2024 Pathology Request for Lab Rena Normal [facility] Comment on above: Order Comment: SKIN SPECIMEN Result Comment: See report. Scanned copy available in EMR. PERFORMED BY: [place] [address] PATHOLOGIST LEATHER DRIER ANAHI TRAN M.D. Performed By: #### P ATH TO [facility] #### [address] IGP,APTIMA HPV,AGE GDLNon AGE GDLN ACOG TESTING Note . [facility] Comment on above: TESTS RESULT FLAG UN ITS REF RANGE LAB Clinician Provided Cytology Information Source.............Cervix;Endocervix No. of containers..01 ThinPrep Vial Age Algo ACOG Marjorie... 30-65 01 FLAG LEGEND: L-Low Normal,H-High Normal,LL-Alert Low,HH-Alert High <-Panic Low,>-Panic High,A-Abnormal,AA-Critical Abnormal Performed at: 01 =G [address] [place] [address] Vonnie Woodard MD, HPV APTIMA Negative Negative [facility] Comment on above: This nucleic acid am plification test detects fourteen high- risk HPV types (16,18,31,33,35,39,45,51,52,56,58,59,66,68) without differentiation. Performed at: = - [address] [id number] Nailhead Setter: Vonnie Woodard MD, Phone: [phone] Performed at: - [address] [id number] Nailhead Setter: Vonnie Woodard MD, Phone: [phone] IGP, APTIMA HPV, RFX 16/18,45 Note . [facility] Comment on above: TESTS RESULT FLAG UN ITS REF RANGE LAB DIAGNOSIS: 02 NEGATIVE FOR INTRAEPITHELIAL LESION OR MALIGNANCY. Specimen adequacy: 02 Satisfactory for evaluation. Endocervical and/or squamous metaplastic cells (endocervical component) are present. Performed by: 02 Quiana Vyas, Green Plumber (ASCP) . 02 Note: Note 02 The [...] Low,>-Panic High,A-Abnormal,AA-Critical Abnormal Performed at: [address] [facility] [address] [address] Vonnie Woodard MD, BRUSH-SPATULA CERVIX ENDOCERVIX CLINIS[facility] e ALL PROGESTERONEon 5 PROGESTERONE 11.2 ng/mL . [facility] are Comment on above: Follicular phase 0.1 - 0.9 Luteal phase 1.8 - 23.9 Ovulation phase 0.1 - 12.0 First trimester 11.0 - 44.3 Second trimester 25.4 - 83.3 Third trimester 58.7 - 214.0 Postmenopausal 0.0 - 0.1 Performed at: - [facility] [address] [id number] Nailhead Setter: Yobany Blount PhD, Phone: [phone] CLIN[facility] CBC AND AUTO DIFFon 11-05-19 25 ABSOLUTE BASOPHIL 0.1 X10E9/L Normal 0.0-0.2 [facility] Comment on above: Performed By: #### C COOPER CMP, 40575-7, 61015-0, THYR #### [facility] ([id number]) [address] [place] [address] ABSOLUTE NEUTROPHIL 6.9 X10E9/L High 1.5-6.6 [facility] Comment on above: Performed By: #### C COOPER CMP, 46954-3, 79234-4, THYR #### [facility] ([id number]) [address] [place] [address]261 Basophils/100 WBC (Bld) 1.1 % Normal [facility] Comment on above: Performed By: #### C BCA, CMP, , 06245-7, THYR #### [facility] ([id number]) [address] [place] [address] 98866 Eosinophils (Bld) [#/Vol] 0.3 10*3/uL Normal 0.0-0.4 [facility] Comment on above: Performed By: #### C COOPER, CMP, , 98667-9, THYR #### [facility] ([id number]) [address] [place] [address] 04362 Eosinophils/100 WBC (Bld) 2.3 % Normal [facility] Comment on above: Performed By: #### C BCA, CMP, , 97929-1, THYR #### [facility] ([id number]) [address] [place] [address] 42346 Erythrocyte distribution width (RBC) [Ratio] 12.6 % Normal 11.5-15.0 [facility] Comment on above: Performed By: #### C BCA, CMP, , 04967-7, THYR #### [facility] ([id number]) [address] [place] [address] 71092 Hematocrit (Bld) [Volume fraction] 40.4 % Normal 35-47 [facility] Comment on above: Performed By: #### C BCA, CMP, , 78149-9, THYR #### [facility] ([id number]) [address] [place] [address] 02078 Hemoglobin (Bld) [Mass/Vol] 13.7 g/dL Normal 11.7-15.5 [facility] Comment on above: Performed By: #### C BCA, CMP, , 95734-9, THYR #### [facility] ([id number]) [address] [place] [address] 56951 Lymphocytes (Bld) [#/Vol] 3.6 10*3/uL High 1.0-3.5 [facility] Comment on above: Performed By: #### C BCA, CMP, , 52167-6, THYR #### [facility] ([id number]) [address] [place] [address] 54802 Lymphocytes/100 WBC (Bld) 31.6 % Normal [facility] Comment on above: Performed By: #### C COOPER, CMP, , 96727-4, THYR #### [facility] ([id number]) [address] [place] [address] 86381 MCH (RBC) [Entitic mass] 30.9 pg Normal 27-34 [facility] Comment on above: Performed By: #### C COOPER, CMP, , 91014-2, THYR #### [facility] ([id number]) [address] [place] [address] 63411 MCHC (RBC) [Mass/Vol] 34.0 g/dL Normal 32-36 [facility] Comment on above: Performed By: #### C COOPER, CMP, , 83733-0, THYR #### [facility] ([id number]) [address] [place] [address] 94594 MCV (RBC) [Entitic vol] 91 fL Normal 80-100 [facility] Comment on above: Performed By: #### C BCA, CMP, , 69693-2, THYR #### [facility] ([id number]) [address] [place] [address] 00014 Monocytes (Bld) [#/Vol] 0.6 10*3/uL Normal 0-0.9 [facility] Comment on above: Performed By: #### C BCA, CMP, 18383-4, 42694-9, THYR #### [facility] ([id number]) [address] [place] [address] 15976 Monocytes/100 WBC (Bld) 5.4 % Normal [facility] Comment on above: Performed By: #### C BCA, CMP, 83185-2, 82891-0, THYR #### [facility] ([id number]) [address] [place] [address] 50753 Neutrophils/100 WBC (Bld) 59.6 % Normal [facility] Comment on above: Performed By: #### C BCA, CMP, 88252-4, 22479-7, THYR #### [facility] ([id number]) [address] [place] [address] 03479 Platelet mean volume (Bld) [Entitic vol] 7.9 fL Normal 7-12 [facility] Comment on above: Performed By: #### C BCA, CMP, 41624-3, 23152-3, THYR #### [facility] ([id number]) [address] [place] [address] 17653 Platelets (Bld) [#/Vol] 346 10*3/uL Normal 150-450 [facility] Comment on above: Performed By: #### C BCA, CMP, 59145-9, 87889-0, THYR #### [facility] ([id number]) [address] [place] [address] 14568 RBC COUNT 4.44 X10E12/L Normal 3.80-5.20 [facility] Comment on above: Performed By: #### C BCA, CMP, 02097-9, 95778-6, THYR #### [facility] ([id number]) [address] [place] [address] 62194 WBC (Bld) [#/Vol] 11.5 10*3/uL High 4.0-11.0 [facility] Comment on above: Performed By: #### C BCA, CMP, 69918-2, 09653-0, THYR #### [facility] ([id number]) [address] [place] [address] 41044 COMPREHENSIVE METABOLIC PANE Sabas 11-04-2024 Albumin [Mass/Vol] 4.0 g/dL Normal 3.2-5.3 [facility] Comment on above: Performed By: #### C BCA, CMP, 52841-6, 60457-7, THYR #### [facility] ([id number]) [address] [place] [address] 90454 ALP [Catalytic activity/Vol] 50 U/L Normal 39-130 [facility] Comment on above: Performed By: #### C BCA, CMP, 62729-1, 83730-8, THYR #### [facility] ([id number]) [address] [place] [address] 75327 ALT [Catalytic activity/Vol] 19 U/L Normal 0-31 [facility] Comment on above: Performed By: #### C BCA, CMP, 27423-3, 73948-4, THYR #### [facility] ([id number]) [address] [place] [address] [place] [address] Anion gap [Moles/Vol] 11 mmol/L Normal 5-15 [facility] Comment on above: Performed By: #### C BCA, CMP, 78739-1, 41617-1, THYR #### [facility] ([id number]) [address] [place] [address] 66726 AST [Catalytic activity/Vol] 18 U/L Normal 0-41 [facility] Comment on above: Performed By: #### C BCA, CMP, 39425-2, 46286-6, THYR #### [facility] ([id number]) [address] [place] [address] 82154 Bilirubin [Mass/Vol] 0.4 mg/dL Normal 0.3-1.2 [facility] Comment on above: Performed By: #### C BCA, CMP, 15153-8, 83588-5, THYR #### [facility] ([id number]) [address] [place] [address] 11829 Calcium [Mass/Vol] 9.4 mg/dL Normal 8.5-10.5 [facility] Comment on above: Performed By: #### C BCA, CMP, , 16696-9, THYR #### [facility] ([id number]) [address] [place] [address] 72268 Chloride [Moles/Vol] 106 mmol/L Normal 98-109 [facility] Comment on above: Performed By: #### C BCA, CMP, , 52272-5, THYR #### [facility] ([id number]) [address] [place] [address] 85243 CO2 [Moles/Vol] 23 mmol/L Normal 22-32 [facility] Comment on above: Performed By: #### C BCA, CMP, , 10735-1, THYR #### [facility] ([id number]) [address] [place] [address] 85554 Creatinine [Mass/Vol] 0.76 mg/dL Normal 0.40-1.00 [facility] Comment on above: Result Comment: METH OD TRACEABLE TO IDMS STANDARD Performed By: #### C BCA, CMP, , 22755-5, THYR #### [facility] ([id number]) [address] [place] [address] 27760 eGFR (CKD-EPI) NON-RACE DEPENDENT >90 Normal >59 [facility] Comment on above: Result Comment: Reported eGFR is based on the CKD-EPI 2020 equation that does not use a race coefficient. Performed By: #### C BCA, CMP, , 13700-3, THYR #### [facility] ([id number]) [address] [place] [address] 01216 Glucose [Mass/Vol] 114 mg/dL High 65-99 [facility] Comment on above: Performed By: #### C BCA, CMP, , 25216-1, THYR #### [facility] ([id number]) [address] [place] [address] 46095 Potassium [Moles/Vol] 4.1 mmol/L Normal 3.5-5.0 [facility] Comment on above: Performed By: #### C BCA, CMP, , 28203-0, THYR #### [facility] ([id number]) [address] [place] [address] 71833 Protein [Mass/Vol] 7.3 g/dL Normal 6.0-8.0 [facility] Comment on above: Performed By: #### C COOPER, CMP, , 14251-4, THYR #### [facility] ([id number]) [address] [place] [address] 68110 Sodium [Moles/Vol] 140 mmol/L Normal 134-146 [facility] Comment on above: Performed By: #### C BCA, CMP, , 34837-5, THYR #### [facility] ([id number]) [address] [place] [address] 49366 Urea nitrogen [Mass/Vol] 13 mg/dL Normal 5-23 [facility] Comment on above: Performed By: #### C BCA, CMP, , 10954-1, THYR #### [facility] ([id number]) [address] [place] [address] 33998 Fibrin D-dimer DDU (PPP) [Ma ss/Vol]on 11-04-2024 D DIMER <150 Normal <255 [facility] Comment on above: Result Comment: Results <255 ng/mL DDU: The presence of a VTE can safely be excluded with a negative D-Dimer result and Wells score. A negative result doesn't exclude the possibility of DIC. The test be repeated along with other diagnostic tests if the patient's symptoms persist or worsen. [email or web address] Performed By: #### C COOPER CMP, 39223-0, 05563-7, THYR #### [facility] ([id number]) [address] [place] [address] 78583 HCG ( test) Ql (U)o n 11-04-2024 Beta HCG ( test) Ql (U) Negative Normal NEG [facility] Comment on above: Performed By: #### 2 106-3 #### [facility] ([id number]) [address] [place] [address] 90155 MAGNESIUMon 11-04-2024 Magnesium [Mass/Vol] 2.3 mg/dL Normal 1.8-2.6 [facility] Comment on above: Performed By: #### C COOPER, CMP, 84613-5, 94214-0, THYR #### [facility] ([id number]) [address] [place] [address] 91961 THYROID PROFILEon 11-04-2024 Free T4 [Mass/Vol] 0.88 ng/dL Normal 0.61-1.60 [facility] Comment on above: Performed By: #### C COOPER, CMP, 55045-7, 79815-0, THYR #### [facility] ([id number]) [address] [place] [address] 65985 TSH 1.78 uIU/mL Normal 0.49-4.67 [facility] Comment on above: Performed By: #### C BCA, CMP, 71829-3, 70986-5, THYR #### [facility] ([id number]) [address] [place] [address] 92521 URN MACROSCOPIC NURon 2024 BILIRUBIN LEIDA Negative Normal NEG [facility] Comment on above: Performed By: #### N UM #### [facility] ([id number]) [address] [place] [address] [place] [address] BLOOD/HGB LEIDA Trace Abnormal NEG [facility] Comment on above: Performed By: #### N UM #### [facility] ([id number]) [address] [place] [address] [place] [address] GLUCOSE LEIDA Negative Normal NEG [facility] [facility] Comment on above: Performed By: #### N UM #### [facility] ([id number]) [address] [place] [address] [place] [address] KETONES LEIDA Negative Normal NEG [facility] Comment on above: Performed By: #### N UM #### [facility] ([id number]) [address] [place] [address] [place] [address] LEUKOCYTE ESTERASE LEIDA Small Abnormal NEG [facility] Comment on above: Performed By: #### N UM #### [facility] ([id number]) [address] [place] [address] [place] [address] NITRITE LEIDA Negative Normal NEG [facility] Comment on above: Performed By: #### N UM #### [facility] ([id number]) [address] [place] [address] [place] [address] PH LEIDA 6.0 Normal 5.0-8.5 [facility] Comment on above: Performed By: #### N UM #### [facility] ([id number]) [address] [place] [address] PROTEIN LEIDA Negative Normal NEG [facility] Comment on above: Performed By: #### N UM #### [facility] ([id number]) [address] [place] [address] SPECIFIC GRAVITY LEIDA 1.025 Normal 1.003-1.035 Pro [facility] Comment on above: Performed By: #### N UM #### [facility] ([id number]) [address] [place] [address] UROBILINOGEN LEIDA 0.2 eu/dL Normal <1.1 [facility] Comment on above: Performed By: #### N UM #### [facility] ([id number]) [address] [place] [address] XR CHEST 1 VWon 11-04-2024 XR CHEST 1 VW XR CHEST 1 VW History: Palpitations Exam/Technique: Portable upright AP chest Comparison: 11/12/2022 Findings: There is no active pulmonary or pleural disease displayed. Cardiac and mediastinal contours appear within normal limits on this AP projection. IMPRESSION: No evidence of active pulmonary disease. 7 Finalized by Tres Giron MD on 11/04/2024 1:02 AM Normal [facility] ALL PROGESTERONEon 5 PROGESTERONE 13.8 ng/mL . [facility] are Comment on above: Follicular phase 0.1 - 0.9 Luteal phase 1.8 - 23.9 Ovulation phase 0.1 - 12.0 First trimester 11.0 - 44.3 Second trimester 25.4 - 83.3 Third trimester 58.7 - 214.0 Postmenopausal 0.0 - 0.1 Performed at: - [facility] [id number] Nailhead Setter: Yobany Blount PhD, Phone: [phone] [facility] ALL PROGESTERONEon 5 PROGESTERONE 22.3 ng/mL . [facility] are Comment on above: Follicular phase 0.1 - 0.9 Luteal phase 1.8 - 23.9 Ovulation phase 0.1 - 12.0 First trimester 11.0 - 44.3 Second trimester 25.4 - 83.3 Third trimester 58.7 - 214.0 Postmenopausal 0.0 - 0.1 Performed at: [address] [id number] Nailhead Setter: Yobany Blount PhD, Phone: [phone] [facility] [employer] [facility] ALL PROGESTERONEon 4 PROGESTERONE 8.5 ng/mL . [facility] are Comment on above: Follicular phase 0.1 - 0.9 Luteal phase 1.8 - 23.9 Ovulation phase 0.1 - 12.0 First trimester 11.0 - 44.3 Second trimester 25.4 - 83.3 Third trimester 58.7 - 214.0 Postmenopausal 0.0 - 0.1 Performed at: [address] [id number] Nailhead Setter: Yobany Blount PhD, Phone: [phone] [facility] [employer] ALL PROGESTERONEon 4 PROGESTERONE 16.8 ng/mL . [facility] are Comment on above: Follicular phase 0.1 - 0.9 Luteal phase 1.8 - 23.9 Ovulation phase 0.1 - 12.0 First trimester 11.0 - 44.3 Second trimester 25.4 - 83.3 Third trimester 58.7 - 214.0 Postmenopausal 0.0 - 0.1 Performed at: [address] [id number] Nailhead Setter: Yobany Blount PhD, Phone: [phone] [facility] [employer] ALL CBC WITH AUTO DIFFon BASOPHILS ABSOLUTE AUTO 0.1 [facility] Basophils/100 WBC (Bld) 0.6 % 0.2 - 2.0 % [facility] Eosinophils/100 WBC (Bld) 2.8 % 0.9 - 7.0 % [facility] Erythrocyte distribution width (RBC) [Ratio] 12.1 % 11.0 - 15.0 % [facility] Hematocrit (Bld) [Volume fraction] 40.6 % 36.0 - 48.0 % [facility] Hemoglobin (Bld) [Mass/Vol] 13.5 g/dL 12.0 - 16.0 g/dL [facility] IMMATURE GRANULOCYTES ABS AUTO 0.02 [facility] Immature granulocytes/100 WBC (Bld) 0.3 % 0.0 - 0.5 % [facility] LYMPHOCYTES ABSOLUTE AUTO 1.8 [facility] Lymphocytes/100 WBC (Bld) 23.0 % 20.5 - 60.0 % [facility] MCH (RBC) [Entitic mass] 30.6 pg 26.7 - 34.0 [facility]CH[facility] (RBC) [Mass/Vol] 33.3 g/dL 29.9 - 35.2 g/dL [facility] MCV (RBC) [Entitic vol] 92.1 fL 81.0 - 99.0 fL [facility] MONOCYTES ABSOLUTE AUTO 0.5 [facility] Monocytes/100 WBC (Bld) 6.6 % 1.7 - 12.0 % [facility] NEUTROPHILS ABSOLUTE AUTO 5.3 [facility] Neutrophils/100 WBC (Bld) 66.7 % 43.0 - 75.0 % [facility] Platelet mean volume (Bld) [Entitic vol] 9.8 fL 9.5 - 13.5 fL [facility] EO # 0.2 [facility] TB PLT 284 [facility] TB RBC 4.41 [facility] TB WBC 8.0 [facility] CLINISYNC [facility] ALL CBC WITH AUTO DIFFon BASOPHILS ABSOLUTE AUTO 0.1 [facility] Basophils/100 WBC (Bld) 0.5 % 0.2 - 2.0 % [facility] Eosinophils/100 WBC (Bld) 2.8 % 0.9 - 7.0 % [facility] Erythrocyte distribution width (RBC) [Ratio] 12.0 % 11.0 - 15.0 % [facility] Hematocrit (Bld) [Volume fraction] 39.7 % 36.0 - 48.0 % [facility] Hemoglobin (Bld) [Mass/Vol] 13.4 g/dL 12.0 - 16.0 g/dL [facility] IMMATURE GRANULOCYTES ABS AUTO 0.03 [facility] Immature granulocytes/100 WBC (Bld) 0.3 % 0.0 - 0.5 % [facility] Interpretation and review of laboratory results Abnormal [facility] LYMPHOCYTES ABSOLUTE AUTO 2.9 [facility] Lymphocytes/100 WBC (Bld) 24.4 % 20.5 - 60.0 % [facility] MCH (RBC) [Entitic mass] 30.7 pg 26.7 - 34.0 pg [facility] MCHC (RBC) [Mass/Vol] 33.8 g/dL 29.9 - 35.2 g/dL [facility] MCV (RBC) [Entitic vol] 91.1 fL 81.0 - 99.0 fL [facility] MONOCYTES ABSOLUTE AUTO 0.6 [facility] Monocytes/100 WBC (Bld) 5.2 % 1.7 - 12.0 % [facility] NEUTROPHILS ABSOLUTE AUTO 8.0 [facility] Neutrophils/100 WBC (Bld) 66.8 % 43.0 - 75.0 % [facility] Platelet mean volume (Bld) [Entitic vol] 10.1 fL 9.5 - 13.5 fL [facility] are [facility] EO # 0.3 [facility] TB[facility] PLT 303 [facility] RBC 4.36 [facility] TB[facility] WBC 12.0 High [facility] POCT EKGOrdered By: Sheyla Powell on 03-13-2024 [employer] No Panel InformationOrdered By: Pinky Singh on 11-24-2023 Quick Strep (POC) [facility] Cytology Cervical or vaginal smear or scraping studyon 11-19-2022 [facility] COVID/FLU/RSV RT-PCRon 10-11 SARS-CoV-2 (COVID-19) RNA PEACE+probe Ql (Unsp spec) Positive [facility] Other COVID/FLU/RSV RT-PCR Negative [facility] Other Vital Signs Date Time Vital Sign Value Performing Clinician Facility 04-11-2025 11:00-0400 Body mass index (BMI) [Ratio] 42.63 kg/m2 [facility] Work Phone: [facility] 04-11-2025 11:00-0400 Body weight 127.19 kg [employer] Phone: [facility] 04-11-2025 11:00-0400 Diastolic blood pressure 86 mm[Hg] Israel Davie DO Work Phone: [facility] 04-11-2025 11:00-0400 Systolic blood pressure 140 mm[Hg] Israel Davie DO Work Phone: [facility] 03-28-2025 11:42-0400 Body mass index (BMI) [Ratio] 42.29 kg/m2 Israel Davie DO Work Phone: [facility] 03-28-2025 11:42-0400 Body weight 126.15 kg Israel Davie DO Work Phone: [facility] 03-28-2025 11:42-0400 Diastolic blood pressure 80 mm[Hg] Israel Davie DO Work Phone: [facility] 03-28-2025 11:42-0400 Systolic blood pressure 138 mm[Hg] Israel Davie DO Work Phone: [facility] 03-01-2025 10:03-0400 Body mass index (BMI) [Ratio] 41.66 kg/m2 Davie Ob [facility] 03-01-2025 10:03-0400 Body weight 124.29 kg Davie Ob [facility] 03-01-2025 10:03-0400 Diastolic blood pressure 76 mm[Hg] Davie Ob [facility] 03-01-2025 10:03-0400 Systolic blood pressure 124 mm[Hg] Davie Ob [facility] 01-03-2025 10:52-0400 Body height 172.7 cm Robbie Lopez MD Work Phone: [facility] 01-03-2025 10:52-0400 Body mass index (BMI) [Ratio] 40.84 kg/m2 Robbie Lopez MD Work Phone: [facility] 01-03-2025 10:52-0400 Body temperature 97.81 [degF] Robbie Lopez MD Work Phone: [facility] 01-03-2025 10:52-0400 Body weight 121.84 kg Robbie Lopez MD Work Phone: [facility] 01-03-2025 10:52-0400 Diastolic blood pressure 78 mm[Hg] Robbie Lopez MD Work Phone: [facility] 01-03-2025 10:52-0400 Heart rate 73 /min Robbie Lopez MD Work Phone: [facility] 01-03-2025 10:52-0400 Systolic blood pressure 132 mm[Hg] Robbie Lopez MD Work Phone: [facility] 12-18-2024 13:38-0400 Body mass index (BMI) [Ratio] 40.35 kg/m2 Israel Davie DO Work Phone: [facility] 12-18-2024 13:38-0400 Body weight 120.39 kg Israel Davie DO Work Phone: [facility] 12-18-2024 13:38-0400 Diastolic blood pressure 72 mm[Hg] Israel Davie DO Work Phone: [facility] 12-18-2024 13:38-0400 Systolic blood pressure 118 mm[Hg] Israel Davie DO Work Phone: [facility] 12-10-2024 14:36-0400 Body mass index (BMI) [Ratio] 40.75 kg/m2 Israel Davie DO Work Phone: [facility] 12-10-2024 14:36-0400 Body weight 121.56 kg Israel Davie DO Work Phone: [facility] 12-10-2024 14:36-0400 Diastolic blood pressure 78 mm[Hg] Israel Davie DO Work Phone: [facility] 12-10-2024 14:36-0400 Systolic blood pressure 130 mm[Hg] Israel Davie DO Work Phone: [facility] 11-12-2024 14:03-0400 Diastolic blood pressure 86 mm[Hg] Israel Davie DO Work Phone: [facility] 11-12-2024 14:03-0400 Systolic blood pressure 120 mm[Hg] Israel Davie DO Work Phone: [facility] 07-23-2024 13:12-0500 Body mass index (BMI) [Ratio] 40.01 kg/m2 Israel Davie DO Work Phone: [facility] 07-23-2024 13:12-0500 Body weight 119.35 kg Israel Davie DO Work Phone: [facility] 07-23-2024 13:12-0500 Diastolic blood pressure 78 mm[Hg] Sirael Davie DO Work Phone: [facility] 07-23-2024 13:12-0500 Systolic blood pressure 130 mm[Hg] Israel Davie DO Work Phone: [facility] 06-11-2024 14:39-0400 Body height 172.7 cm Israel Davie DO Work Phone: [facility] 06-11-2024 14:39-0400 Body mass index (BMI) [Ratio] 39.53 kg/m2 Israel Davie DO Work Phone: [facility] 06-11-2024 14:39-0400 Body weight 117.94 kg Israel Davie DO Work Phone: [facility] 06-11-2024 14:39-0400 Diastolic blood pressure 76 mm[Hg] Israel Davie DO Work Phone: [facility] 06-11-2024 14:39-0400 Systolic blood pressure 128 mm[Hg] Israel Davie DO Work Phone: [facility] 05-03-2024 11:39-0400 Body weight 118.84 kg Israel Davie DO Work Phone: [facility] 05-03-2024 11:39-0400 Diastolic blood pressure 78 mm[Hg] Israel Davie DO Work Phone: [facility] 05-03-2024 11:39-0400 Systolic blood pressure 130 mm[Hg] Israel Davie DO Work Phone: [facility] 04-10-2024 09:36-0400 Body weight 120.57 kg Israel Davie DO Work Phone: [facility] 04-10-2024 09:36-0400 Diastolic blood pressure 78 mm[Hg] Israel Davie DO Work Phone: [facility] 04-10-2024 09:36-0400 Systolic blood pressure 130 mm[Hg] Israel Davie DO Work Phone: [facility] 03-13-2024 10:50-0400 Body height 172.7 cm Tucker Fraire MD Work Phone: [facility] 03-13-2024 10:50-0400 Body mass index (BMI) [Ratio] 40.66 kg/m2 Tucker Fraire MD Work Phone: [facility] 03-13-2024 10:50-0400 Body weight 121.29 kg Tucker Fraire MD Work Phone: [facility] 03-13-2024 10:50-0400 Diastolic blood pressure 94 mm[Hg] Tucker Fraire MD Work Phone: [facility] 03-13-2024 10:50-0400 Heart rate 83 /min Tucker Fraire MD Work Phone: [facility] 03-13-2024 10:50-0400 SaO2% (BldA) [Mass fraction] 98 % Tucker Fraire MD Work Phone: [facility] 03-13-2024 10:50-0400 Systolic blood pressure 136 mm[Hg] Tucker Fraire MD Work Phone: [facility] 11-24-2023 12:26-0400 Body height 172.72 cm [facility] 11-24-2023 12:26-0400 Body mass index (BMI) [Ratio] 42.6 kg/m2 [facility] 11-24-2023 12:26-0400 Body temperature 97.3 [degF] [facility] 11-24-2023 12:26-0400 Body weight 127.11 kg [facility] 11-24-2023 12:26-0400 Diastolic blood pressure 84 mm[Hg] [facility] 11-24-2023 12:26-0400 Heart rate 75 /min [facility] 11-24-2023 12:26-0400 Respiratory rate 18 /min [facility] 11-24-2023 12:26-0400 SaO2% (BldA) [Mass fraction] 98 % [facility] 11-24-2023 12:26-0400 Systolic blood pressure 130 mm[Hg] [facility] 10-11-2022 11:35-0500 Body height 172.72 cm Pinky Singh Other [email or web address] Other 10-11-2022 11:35-0500 Body mass index (BMI) [Ratio] 42.27 kg/m2 Pinky Singh Other [email or web address] Other 10-11-2022 11:35-0500 Body temperature 97.8 [degF] Pinky Samantha Other [email or web address] Other 10-11-2022 11:35-0500 Body weight 126.1 kg Pinky Singh Other [email or web address] Other 10-11-2022 11:35-0500 Respiratory rate 18 /min Pinky Singh Other [email or web address] Other 10-11-2022 11:35-0500 SaO2% (BldA) [Mass fraction] 98 % Pinky Singh Other [email or web address] Other Encounters Encounter Date Encounter Type Care Provider Facility Start: 04-19-2025 End: 04-19-2025 Orders Only Joann Moise RN [facility] Comment on above: Hypertension affecti ng in second trimester (Primary Dx) Start: 04-17-2025 End: 04-17-2025 Clinisync Result Encounter Israel Davie DO Work Phone: [facility] Unsolicited Start: 04-17-2025 End: 04-17-2025 Clinisync Result Encounter Israel Davie DO Work Phone: [facility] Unsolicited Start: 04-11-2025 End: 04-11-2025 Bamboo flowsheet Israel Davie DO Work Phone: [facility] Start: 04-11-2025 End: 04-11-2025 Bamboo flowsheet Israel Davie DO Work Phone: [facility] Start: 04-11-2025 End: 04-11-2025 Office outpatient visit 15 minutes Israel Davie DO Work Phone: [facility] Comment on above: 15 weeks gestation o f ([facility]-HCC); Second trimester (HHS-HCC); Acute nonintractable headache, unspecified headache type; BP check; Gestational hypertension, antepartum (HHS-HCC); induced hypertension, antepartum (HHS-HCC) Start: 04-11-2025 End: 04-11-2025 Patient encounter status Israel Davie DO Work Phone: [facility] Start: 04-11-2025 End: 04-11-2025 ambulatory ISRAEL DAVIE Not Available Start: 03-28-2025 End: 03-28-2025 Bamboo flowsheet Israel Davie DO Work Phone: [facility] Start: 03-28-2025 End: 03-28-2025 Bamboo flowsheet Israel Davie DO Work Phone: [facility] Start: 03-28-2025 End: 03-28-2025 Office outpatient visit 15 minutes Israel Davie DO Work Phone: [facility] Comment on above: 13 weeks gestation o f ([facility]-HCC); Second trimester ([facility]-HCC); Acute nonintractable headache, unspecified headache type Start: [...] encounter status Robbie Lopez MD Work Phone: [facility] Work Phone: Start: 01-03-2025 End: 01-03-2025 ambulatory ROBBIE LOPEZ [facility] Start: 01-03-2025 End: 01-03-2025 Encounter for preprocedural laboratory examination ROBBIE LOPEZ [facility] Start: 12-18-2024 End: 12-26-2024 External Result Encounter Israel Davie DO Work Phone: [facility] Unsolicited Start: 12-18-2024 End: 12-26-2024 External Result Encounter Israel Davie DO Work Phone: [facility] Unsolicited Start: 12-18-2024 End: 12-18-2024 Patient encounter procedure Israel Davie DO Work Phone: [facility] Comment on above: Skin mole Start: 12-18-2024 End: 12-18-2024 ambulatory Israel Davie [facility] Work Phone: Start: 12-18-2024 End: 12-18-2024 Departed Referred Israel Davie DO Work Phone: [facility] Start: 12-17-2024 End: 12-18-2024 Clinisync Result Encounter Israel Davie DO Work Phone: [facility] Unsolicited Start: 12-17-2024 End: 12-18-2024 Clinisync Result Encounter Irsael Davie DO Work Phone: [facility] [...] 15 minutes Israel Davie DO Work Phone: [facility] Comment on above: Encounter for fertil ity planning; Acute cystitis without hematuria; PCOS (polycystic ovarian syndrome); Fallopian tube disorder Start: 11-12-2024 End: 11-12-2024 Bamboo flowsheet Israel Davie DO Work Phone: [facility] Start: 11-12-2024 End: 11-12-2024 Bamboo flowsheet Israel Davie DO Work Phone: [facility] Start: 11-12-2024 End: 11-12-2024 ambulatory ISRAEL DAVIE Not Available Start: 11-03-2024 End: 11-04-2024 Emergency department patient visit [facility] Start: 10-18-2024 End: 10-19-2024 Clinisync Result [...] 15 minutes Israel Davie DO Work Phone: [facility] Comment on above: Pre-op examination; Pelvic pain in female; Fallopian tube disorder Start: 05-03-2024 End: 05-03-2024 Preprocedural examination done Israel Davie DO Work Phone: [facility] Start: 05-03-2024 End: 05-03-2024 ambulatory ISRAEL DAVIE Not Available Start: 04-24-2024 End: 04-24-2024 Clinisync Result Encounter Israel Davie DO Work Phone: [facility] Unsolicited Start: 04-24-2024 End: 04-24-2024 Clinisync Result Encounter Israel Davie DO Work Phone: [facility] Unsolicited Start: 04-10-2024 End: 04-10-2024 Bamboo flowsheet Irsael Davie DO Work Phone: [facility] Start: 04-10-2024 End: 04-10-2024 Bamboo flowsheet Israel Davie DO Work Phone: [facility] Start: 04-10-2024 End: 04-10-2024 Office outpatient visit 15 minutes Israel Davie DO Work Phone: [facility] Comment on above: Encounter for fertil ity planning; PCOS (polycystic ovarian syndrome); Pelvic pain in female; Abnormal uterine bleeding (AUB) Start: 03-13-2024 End: 03-13-2024 Office outpatient visit 15 minutes Tucker Fraire MD Work Phone: [facility] Comment on above: Heart palpitations ( Primary Dx) Start: 03-13-2024 End: 03-13-2024 ambulatory TUCKER FRAIRE [facility] Start: 03-12-2024 End: 03-12-2024 Telephone encounter Sheyla Powell [facility] Start: 02-22-2024 End: 02-22-2024 Chart abstracting Scanning Provider External [facility] Start: 02-06-2024 End: 02-06-2024 ambulatory [facility] Start: 11-24-2023 End: 11-24-2023 ambulatory [facility] Work Phone: Start: 11-24-2023 End: 11-24-2023 Patient encounter procedure [facility] Work Phone: Start: 10-11-2022 End: 10-11-2022 ambulatory Pinky Singh Other [email or web address] Other Start: 10-11-2022 Office outpatient ne w 20 minutes Pinky Singh [facility] Procedures Date Procedure Procedure Detail Performing Clinician Start: 04-17-2025 ALL CBC WITH AUTO DIFF Israel Davie DO Work Phone: Start: 04-11-2025 Urnls dip stick/tabl et rgnt non-auto w/o micrscp Israel Davie DO Work Phone: Start: 03-28-2025 Urnls dip stick/tabl et rgnt non-auto w/o micrscp Irsael Davie DO Work Phone: Start: 03-20-2025 ALL CBC WITH AUTO DIFF Israel Davie DO Work Phone: Start: 03-01-2025 End: 03-01-2025 Urnls dip stick/tablet rgnt non-auto w/o micrscp Israel Daive DO Work Phone: Start: 01-16-2025 ALL PROGESTERONE [...] hin layer prep mnl screen Bethany Raymundo [employer] Work Phone: Plan of Treatment Date Care Activity Detail Author Start: 2042 Zoster Vaccines (1 of 2) Zoster Vaccines (1 of 2) [facility] Start: 12-11-2027 Screening for malignant neoplasm of cervix [facility] Start: 11-24-2027 Screening for malignant neoplasm of cervix [facility] Start: 12-16-2025 End: 12-16-2025 Patient encounter procedure [facility] Start: 11-23-2025 Screening for malignant neoplasm of cervix Pap Smear [facility] Start: 11-19-2025 Screening for malignant neoplasm of cervix Pap Smear [facility] Start: 11-03-2025 Tobacco Screening Tobacco Screening [facility] Start: 05-20-2025 End: 04-19-2026 US MFM with or without consult [facility] with or without consult Imaging Routine Hypertension affecting in second trimester Expected: 05/20/2025 (Approximate), Expires: 04/19/2026 [facility] Work Phone: Comment on above: Expected: 05/20/2025 (Approximate), Expi res: 04/19/2026 Start: 05-17-2025 End: 05-17-2025 Patient encounter procedure [facility] Imaging Start: 04-25-2025 End: 04-25-2025 Patient encounter procedure 04/25/2025 11:10 AM EDT Routine [facility] [address] [place] [address] Israel Broderick DO [address] [place] [address] [facility] [place] [facility] Start: 04-22-2025 Influenza vaccination [facility] Start: 04-11-2025 End: 04-11-2026 Alanine aminotransferase [Enzymatic activity/volume] in Serum or Plasma ALT Lab Routine Gestational hypertension, antepartum (HHS-HCC) induced hypertension, antepartum (HHS-HCC) Expected: 04/11/2025 (Approximate), Expires: 04/11/2026 [facility] Comment on above: Expected: 04/11/2025 (Approximate), Expi res: 04/11/2026 Start: 04-11-2025 End: 04-11-2026 Aspartate aminotransferase [Enzymatic activity/volume] in Serum or Plasma AST Lab Routine Gestational hypertension, antepartum (HHS-HCC) induced hypertension, antepartum (HHS-HCC) Expected: 04/11/2025 (Approximate), Expires: 04/11/2026 [facility] Comment on above: Expected: 04/11/2025 (Approximate), Expi res: 04/11/2026 Start: 04-11-2025 End: 04-11-2026 CBC W Auto Differential panel - Blood CBC and differential Lab Routine Gestational hypertension, antepartum (HHS-HCC) induced hypertension, antepartum (HHS-HCC) Expected: 04/11/2025 (Approximate), Expires: 04/11/2026 [facility] Comment on above: Expected: 04/11/2025 (Approximate), Expi res: 04/11/2026 Start: 04-11-2025 End: 04-11-2026 Creatinine [Mass/volume] in Serum or Plasma Creatinine Lab Routine Gestational hypertension, antepartum (HHS-HCC) induced hypertension, antepartum (HHS-HCC) Expected: 04/11/2025 (Approximate), Expires: 04/11/2026 [facility] Work Phone: Comment on above: Expected: 04/11/2025 (Approximate), Expi res: 04/11/2026 Start: 04-11-2025 End: 04-11-2026 Lactate dehydrogenase [Enzymatic activity/volume] in Serum or Plasma by Lactate to pyruvate reaction Lactate dehydrogenase Lab Routine Gestational hypertension, antepartum (HHS-HCC) induced hypertension, antepartum (HHS-HCC) Expected: 04/11/2025, Expires: 04/11/2026 [facility] Comment on above: Expected: 04/11/2025, Expires: Start: 04-11-2025 End: 04-11-2026 Protein, urine, 24 hour Protein, urine, 24 hour Lab Routine Gestational hypertension, antepartum (HHS-HCC) induced hypertension, antepartum (HHS-HCC) Expected: 04/11/2025 (Approximate), Expires: 04/11/2026 [facility] Comment on above: Expected: 04/11/2025 (Approximate), Expi res: 04/11/2026 Start: 04-11-2025 End: 04-11-2026 Pt and ptt Pt and ptt Lab Routine Gestational hypertension, antepartum (HHS-HCC) induced hypertension, antepartum (HHS-HCC) Expected: 04/11/2025, Expires: 04/11/2026 [facility] Comment on above: Expected: 04/11/2025, Expires: Start: 04-11-2025 End: 04-11-2026 Urate [Mass/volume] in Serum or Plasma Uric acid Lab Routine Gestational hypertension, antepartum (HHS-HCC) induced hypertension, antepartum (HHS-HCC) Expected: 04/11/2025 (Approximate), Expires: 04/11/2026 [facility] Comment on above: Expected: 04/11/2025 (Approximate), Expi res: 04/11/2026 Start: 04-11-2025 End: 04-11-2026 Urea nitrogen [Mass/volume] in Serum or Plasma BUN Lab Routine Gestational hypertension, antepartum (HHS-HCC) induced hypertension, antepartum (HHS-HCC) Expected: 04/11/2025, Expires: 04/11/2026 [facility] Comment on above: Expected: 04/11/2025, Expires: Start: 04-11-2025 End: 04-11-2025 Patient encounter procedure [facility] Comment on above: Arrived Start: 03-28-2025 End: 03-28-2025 Patient encounter procedure [facility] Comment on above: Arrived Start: 03-13-2025 Adult BMI Screening Adult BMI Screening [facility] Start: 03-13-2025 Tobacco Screening Tobacco Screening [facility] Start: 03-01-2025 End: 03-01-2026 ABO/Rh ABO/Rh Lab Routine Missed menses , unspecified gestational age (HHS-HCC) Expected: 03/01/2025 (Approximate), Expires: 03/01/2026 [facility] Comment on above: Expected: 03/01/2025 (Approximate), Expi res: 03/01/2026 Start: 03-01-2025 End: 03-01-2026 Blood type and Indirect antibody screen panel - Blood Type and screen Lab Routine Missed menses , unspecified gestational age ([facility]) Expected: 03/01/2025 (Approximate), Expires: 03/01/2026 [facility] Work Phone: Comment on above: Expected: 03/01/2025 (Approximate), Expi res: 03/01/2026 Start: 03-01-2025 End: 03-01-2026 Drugs of abuse panel - Urine by Screen method Rapid drug screen, urine Lab Routine , unspecified gestational age ([facility]) Encounter for supervision of normal first in first trimester ([facility]) Expected: 03/01/2025 (Approximate), Expires: 03/01/2026 [facility] Comment on above: Expected: 03/01/2025 (Approximate), Expi res: 03/01/2026 Start: 02-03-2025 End: 04-05-2025 Choriogonadotropin ( test) [Presence] in Urine POCT , urine manually resulted Point of Care Testing Routine Encounter for preprocedural laboratory examination Expected: 02/03/2025 (Approximate), Expires: 04/05/2025 [facility] Work Phone: Comment on above: Expected: 02/03/2025 (Approximate), Expi res: 04/05/2025 Start: 02-03-2025 End: 01-03-2026 Sonohysterogram Sonohysterogram Procedures Routine Abnormal uterine bleeding Expected: 02/03/2025 (Approximate), Expires: 01/03/2026 [facility] Work Phone: Comment on above: Expected: 02/03/2025 (Approximate), Expi res: 01/03/2026 Start: 02-03-2025 End: 01-03-2026 US.doppler Uterus and Fallopian tubes W saline IU US sonohysterogram Imaging Routine Abnormal uterine bleeding Expected: 02/03/2025 (Approximate), Expires: 01/03/2026 [facility] Work Phone: Comment on above: Expected: 02/03/2025 (Approximate), Expi res: 01/03/2026 Start: 12-18-2024 End: 12-18-2024 Patient encounter procedure 12/18/2024 1:30 PM EDT Procedure Visit [facility] [address] [place] [id number] Israel Broderick, DO [address] [place] [address] [facility] Start: 12-18-2024 [facility] Start: 12-10-2024 End: 12-10-2024 Patient encounter procedure [facility] Comment on above: Arrived Start: 11-12-2024 End: 11-12-2024 Patient encounter procedure [facility] Comment on above: Arrived Start: 07-23-2024 End: 07-23-2024 Patient encounter procedure 07/23/2024 1:00 PM EST Office Visit [facility] [address] [place] [phone] Israel Broderick, DO [address] [place] [address] [facility] Start: 06-11-2024 End: 06-11-2024 Patient encounter procedure 06/11/2024 2:20 PM EDT Office Visit [facility] [address] [place] [phone] Israel Broderick, DO [address] [place] [address] Arrived [facility] Comment on above: Arrived Start: 06-01-2024 End: 06-01-2024 Patient encounter procedure 06/01/2024 8:30 AM EDT Procedure Visit [facility] Israel Broderick, DO [address] [place] [address] [facility] Start: 05-03-2024 End: 05-03-2024 Patient encounter procedure 05/03/2024 11:40 AM EDT Consult [facility] [address] [place] [id number] Israel Broderick, DO [address] [place] [address] [facility] Start: 04-22-2024 COVID-19 Vaccine ( season) COVID-19 Vaccine ( season) [facility] Start: 04-22-2024 Influenza vaccination [facility] Start: 04-10-2024 End: 04-10-2025 Antimullerian hormone (AMH) Antimullerian hormone (AMH) Lab Routine PCOS (polycystic ovarian syndrome) Expected: 04/10/2024 (Approximate), Expires: 04/10/2025 [facility] Comment on above: Expected: 04/10/2024 (Approximate), Expi res: 04/10/2025 Start: 04-10-2024 End: 04-10-2025 DHEA DHEA Lab Routine PCOS (polycystic ovarian syndrome) Expected: 04/10/2024 (Approximate), Expires: 04/10/2025 [facility] Comment on above: Expected: 04/10/2024 [...] EDT Office Visit [facility] [address] [facility] [phone] Israel Broderick, DO [address] [place] [address] Arrived [facility] Comment on above: Arrived Start: 03-13-2024 End: 03-13-2024 Patient encounter procedure 03/13/2024 11:00 AM EDT Office Visit [facility] [address] [place] [address] Tucker Fraire MD [address] [facility] [place] [phone] [facility] Start: 01-21-2024 Adult BMI Screening Adult BMI Screening [facility] Start: 01-21-2024 Tobacco Screening Tobacco Screening [facility] Start: 2014 DTaP/Tdap/Td Vaccines (1 - Tdap) DTaP/Tdap/Td Vaccines (1 - Tdap) [facility] Start: 2013 Screening for malignant neoplasm of cervix HPV/Cotest [facility] Start: 2011 DTaP,Tdap and Td Vaccines (1 - Tdap) DTaP,Tdap and Td Vaccines (1 - Tdap) [facility] Start: 2011 Hepatitis B Vaccines (1 of 3 - 19+ 3-dose series) Hepatitis B Vaccines (1 of 3 - 19+ 3-dose series) [facility] Start: 2010 Adult BMI Follow Up Plan Adult BMI Follow Up Plan [facility] Start: 2010 Hepatitis C screening Hepatitis C Screening [facility] Start: 2005 Varicella vaccination Varicella Vaccines (1 of 2 - 13+ 2-dose series) [facility] Start: 2004 Depression Screening Depression Screening [facility] Start: 1993 MMR Vaccines (1 of 1 - Standard series) MMR Vaccines (1 of 1 - Standard series) [facility] Start: 1992 HIV screening HIV Screening [facility] Start: 1992 Lipid panel Lipid Panel [facility] Start: 1992 Yearly Adult Physical Yearly Adult Physical [facility] Bacteria identified in Urine by Culture Urine culture Microbiology Routine Missed menses Ordered: 03/01/2025 [facility] Comment on above: Ordered: 03/01/2025 CBC W Auto Different ial panel - Blood CBC and differential Lab Routine PCOS (polycystic ovarian syndrome) Ordered: 04/10/2024 [facility] Comment on above: Ordered: 04/10/2024 CBC W Auto Different ial panel - Blood CBC and differential Lab Routine Missed menses , unspecified gestational age (HHS-HCC) Ordered: 03/01/2025 [facility] Comment on above: Ordered: 03/01/2025 Cytology Cervical or vaginal smear or scraping study Pap Smear Pathology and Cytology Routine Well woman exam with routine gynecological exam Ordered: 12/10/2024 [facility] Work Phone: Comment on above: Ordered: 12/10/2024 DHEA-sulfate DHEA-sulfate Lab Routine PCOS (polycystic ovarian syndrome) Ordered: 04/10/2024 [facility] Comment on above: Ordered: 04/10/2024 Follicle stimulating hormone Follicle stimulating hormone Lab Routine PCOS (polycystic ovarian syndrome) Ordered: 04/10/2024 [facility] Comment on above: Ordered: 04/10/2024 hCG, quantitative, hCG, quantitative, Lab Routine PCOS (polycystic ovarian syndrome) Ordered: 04/10/2024 [facility] Work Phone: Comment on above: Ordered: 04/10/2024 Hemoglobin A1c/Hemoglobin.total in Blood Hemoglobin A1c Lab Routine Pelvic pain in female Abnormal uterine bleeding (AUB) Ordered: 04/10/2024 [facility] Comment on above: Ordered: 04/10/2024 Hemoglobin A1c/Hemoglobin.total in Blood Hemoglobin A1c Lab Routine Missed menses , unspecified gestational age (HHS-HCC) Ordered: 03/01/2025 [facility] Comment on above: Ordered: 03/01/2025 Hepatitis B virus matt rface Ag [Presence] in Serum or Plasma by Immunoassay Hepatitis B surface antigen Lab Routine Missed menses , unspecified gestational age (HHS-HCC) Ordered: 03/01/2025 [facility] Comment on above: Ordered: 03/01/2025 Hepatitis C virus Ab [Presence] in Serum or Plasma by Immunoassay Hepatitis C antibody Lab Routine Missed menses , unspecified gestational age (HHS-HCC) Ordered: 03/01/2025 [facility] Comment on above: Ordered: 03/01/2025 HIV-1/HIV-2 antigen/antibody combination immunoassay HIV-1 and HIV-2 antibodies Lab Routine Missed menses , unspecified gestational age ([facility]) Ordered: 03/01/2025 [facility] Comment on above: Ordered: 03/01/2025 Human papilloma viru s DNA [Presence] in Unspecified specimen by Probe with amplification HPV DNA probe, amplified Microbiology Routine Well woman exam with routine gynecological exam Ordered: 12/10/2024 [facility] Comment on above: Ordered: 12/10/2024 Luteinizing hormone Luteinizing hormone Lab Routine PCOS (polycystic ovarian syndrome) Ordered: 04/10/2024 [facility] Comment on above: Ordered: 04/10/2024 Reagin Ab [Presence] in Serum by RPR RPR Lab Routine Missed menses , unspecified gestational age ([facility]) Ordered: 03/01/2025 [facility] Comment on above: Ordered: 03/01/2025 Rubella antibody, IgG Rubella an tibody, IgG Lab Routine Missed menses , unspecified gestational age ([facility]) Ordered: 03/01/2025 [facility] Comment on above: Ordered: 03/01/2025 Thyrotropin [Units/v olume] in Serum or Plasma TSH Lab Routine PCOS (polycystic ovarian syndrome) Ordered: 04/10/2024 [facility] Comment on above: Ordered: 04/10/2024 Thyroxine (T4) free [Mass/volume] in Serum or Plasma T4, free Lab Routine PCOS (polycystic ovarian syndrome) Ordered: 04/10/2024 [facility] Comment on above: Ordered: 04/10/2024 Payers Date Payer Category Payer Self-pay 2022 Medicaid [id number] 2022 Medicaid [id number] 2. [id number] 1992 Unknown [id number] 2.16. [id number] 1992 Unknown [id number] 2.16.8 [id number] 1992 Unknown [id number] 2.16.8 40.1.611962.3.579.2.1286 1992 Unknown [id number] 2.16.8 40.1.085025.3.579.2.9 1992 Unknown [id number] 2.16.8 [id number] 1992 Unknown [id number] 2.16.8 40.1.902815.3.579.2.9 1992 Unknown [id number] 2.16.8 40.1.034953.3.579.2.9 1992 Unknown [id number] 2.16.84 0.1.923336.3.579.2.9 1992 Unknown [id number] 2.16.84 0.1.737365.3.579.2.1258 1992 Unknown [id number] 2.16.84 0.1.520309.3.579.2.9 1992 Unknown [id number] 2.16.84 0.1.584264.3.579.2.1258 1992 Unknown [id number] 2.16.84 0.1.543778.3.579.2.9 1992 Unknown [id number] 2.16.84 0.1.461148.3.579.2.9 Unknown [id number] 2.16.8 [id number] Social History Date Type Detail Facility Start: 02-22-2024 End: 11-03-2024 Sex Assigned At [facility] [employer] Other Start: 1990 Sex Assigned At Female F [facility] Tobacco smoking status WIIS Tobacco smoking consumption unknown [facility] Start: 1990 Sex assigned at Not on file [place] [place] [facility] Start: 10-09-2022 End: 01-03-2025 Tobacco smoking status NHIS Never smoked tobacco [facility] [employer] [facility] Start: 10-09-2022 End: 01-03-2025 Tobacco use and exposure Smokeless tobacco non-user [facility] [employer] [employer] [facility] Start: 02-22-2024 End: 11-03-2024 Alcoholic beverage intake [facility]-drinker (finding) [facility] Start: 02-22-2024 End: 11-03-2024 History of Social function [facility] Within the past 12 months we worried whether our food would run out before we got money to buy more. 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 Exam conducted with a enforcement safety officer present. Vitals: Estimated body mass index is 42.63 kg/m as calculated from the following: Height as of 06/11/24: 5' 8 . Weight as of this encounter: 280 lb 6.4 oz. BP: 140/86 Patient's last menstrual period was 12/26/2024. ASSESSMENT & PLAN ICD-10-CM 1. 15 weeks gestation of ([facility]) Z3A.15 POCT urinalysis dipstick manually resulted 2. Second trimester ([facility]) Z34.92 POCT urinalysis dipstick manually resulted 3. Acute nonintractable headache, unspecified headache type R51.9 4. BP check Z01.30 Patient presents today for a routine obstetrics appointment. Patient is currently 15w1d with a Estimated Date of Delivery: 10/02/25. Patient is having persistent elevated HTN. Discussed patient being referred to [facility] for management and recommendations for Gestational HTN. Patient is agreeable with referral. Patient to be started on Labetalol 200mg BID. Patient given labs and 24 hour urine to have obtained for baseline testing. Patient aware that once lab results are obtained then referral will be completed, so then all results can be sent to [facility] at onetime. Patient to return to clinic in 4 weeks for routine OB appointment. Patient to reach out to office with any concerns/questions. Documented by Karoline Casillas LPN on behalf of: Israel Broderick DO documented in this encounter [facility] 03-28-2025 History of Present illness Narrative [...] nursing note reviewed. Exam conducted with a enforcement safety officer present. Vitals: Estimated body mass index is 42.29 kg/m as calculated from the following: Height as of 06/11/24: 5' 8 . Weight as of this encounter: 278 lb 1.9 oz. BP: 138/80 Patient's last menstrual period was 12/26/2024. ASSESSMENT & PLAN ICD-10-CM 1. 13 weeks gestation of ([facility]) Z3A.13 POCT urinalysis dipstick manually resulted 2. Second trimester ([facility]) Z34.92 POCT urinalysis dipstick manually resulted magnesium [...] or undercooked meat, and stay away from [facility] [place]. Patient has been consulted regarding any further [...] Israel Broderick DO documented in this encounter [facility] 03-01-2025 History of Present illness Narrative [...] Sex Type Anes PTL Lv 2 Current 1 2019 Current Medications: has a current medication [...] dipstick manually resulted , unspecified gestational age (HHS-HCC) - Type and screen; Future - ABO/Rh; Future - CBC and differential - Hemoglobin A1c - RPR - Rubella antibody, IgG - Hepatitis B surface antigen - Hepatitis C antibody - HIV-1 and HIV-2 antibodies - Rapid drug screen, urine; Future Encounter for supervision of normal first in first trimester ([facility]) - Rapid drug screen, urine; Future 9 weeks gestation of ([facility]) Nurse Note: Pt uncertain of doing the [place] [employer] to one. Advised pt if she does to make sure both labs and [place] is done at the same time. PVU. Pt did state she had a Vit. D deficiency and has a h/o high blood pressure with G1. [employer] advised patient showed in dating [place] today [...] or undercooked meat, and stay away from [facility] [place]. Patient has also been advised to not [...] Melanie Almaraz MA documented in this encounter [facility] 01-03-2025 History of Present illness Narrative [...] 6 years They have child together born 2020- conceived easily No conception since ~ 3 years PRIOR EVALUATION / TREATMENT Has seen Dr. Broderick Had laparoscopy- reports no evidence of endometriosis Reports normal SA Has started metformin and Letrozole/TIC x 5 cycles and Clomid/TIC x 2 cycles--> no conception Hysterosalpingogram: None but reports tubal assessment at time of laparoscopy demonstrated bilateral tubal patency Saline Infused Sonography: None [facility] Pelvic Ultrasound: 2023 FINDINGS: UTERUS: Normal size [...] 10/2024 Thyroid profile includes TSH FT4 Order: [id number] Component Ref Range & Units 2 mo [...] -- -- -- 2.68 -- -labs done [id number] Relationship Status: Have you ever been ? [...] complications with delivery -Breastfed x 1 year [facility] HISTORY Have you ever been diagnosed with a sexually transmitted disease? No Please select all that are applicable: Have you ever had Pelvic Inflammatory Disease? No Have you had an abnormal PAP smear? 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 Tadalafil - 10mg as needed Injuries: No STD: No Please select all that are applicable: SA: Yes SA Results: Yes -Done at [facility] 2023- reports was told normal, no [...] history on file. documented in this encounter [facility] Work Phone: 01-03-2025 Instructions Robbie Lopez [...] 01/03/2025 11:05 AM documented in this encounter [facility] Work Phone: 12-18-2024 History of Present [...] nursing note reviewed. Exam conducted with a enforcement safety officer present. Vitals: Estimated body mass index is [...] after allowing sufficient time to take affect. fish bait picker and scissors used to remove affected area. Placed in formalin and sent to pathology. Post-procedure instructions given. Follow Up: as needed Documented by Kita Griggs LPN on behalf of: Israel Broderick DO documented in this encounter [facility] 12-10-2024 History of Present illness Narrative [...] nursing note reviewed. Exam conducted with a enforcement safety officer present. Vitals: Estimated body mass index is [...] Israel Broderick DO documented in this encounter [facility] 11-12-2024 History of Present illness Narrative [...] Israel Broderick DO documented in this encounter [facility] 07-23-2024 History of Present illness Narrative [...] nursing note reviewed. Exam conducted with a enforcement safety officer present. Vitals: Estimated body mass index is [...] Israel Broderick DO documented in this encounter [facility] 06-11-2024 History of Present illness Narrative [...] nursing note reviewed. Exam conducted with a enforcement safety officer present. Vitals: Estimated body mass index is [...] Israel Broderick DO documented in this encounter [facility] 05-03-2024 History of Present illness Narrative Reason for Appointment: Patient ID: Chayo Ramires is a 34 y.o. female who presents for Pre-op Visit Patient presents today for Pre Op appointment. Patient is scheduled to undergo Diagnostic Laparoscopy, possible FLAKITO, possible FOE, possible BSO, possible Chromopertubation on 06/01/[address] Broderick at [facility]. MEDICATIONS Current Outpatient Medications Medication Instructions D-400 [...] nursing note reviewed. Exam conducted with a enforcement safety officer present. Vitals: There is no height or [...] reviewed, and patient is to proceed to [facility] OR. Follow Up: Patient is to follow up between 1-2 weeks post operative to assess proper healing and recovery from procedure. Documented by Karoline Casillas LPN on behalf of: Israel Broderick DO documented in this encounter [facility] 04-10-2024 History of Present illness Narrative [...] nursing note reviewed. Exam conducted with a enforcement safety officer present. Vitals: There is no height or [...] by Kita Griggs LPN on behalf of: Israle Broderick DO documented in this encounter [facility] 03-13-2024 History of Present illness Narrative Chayo Ramires Date of visit: [...] Chief Complaint Patient presents with New Patient NURSE CASE MANAGEMENT PALPITATIONS SCHED W/ PT LABS HM AT [facility] LABS AT PCP History of Present Illness [...] FOLLOW UP No follow-ups on file. PCP: [facility] Jazmín Referring Physician: Sabiha Deleon APRN-THEA [address] [place] [address] documented in this encounter [facility] 03-12-2024 Miscellaneous Notes Left message for patient to remind them to bring their most current medication list with them to their appointment. documented in this encounter [facility] 03-12-2024 Telephone encounter Note Left message for patient to remind them to bring their most current medication list with them to their appointment. [facility] 10-11-2022 Evaluation note Encounter Date Diagnosis [...] the onset of your symptoms of COVID [email or web address] Other Chief complaint+Reason for visit Narrative* Chief Complaint sinus pressure, coug h Reason for Visit Contact with and (matt spected) exposure to covid-19 Sore throat Sinusitis [facility] Work Phone: Evaluation note* Diagnosis Onset Date Resolution Status Contact with and (suspected) exposure to covid-19 acute Sore throat acute Sinusitis noneactive [facility] Work Phone: Evaluation note* Diagnosis [...] palpitations- Primary Palpitations [facility] Diagnosis Encounter for fertility planning Acute cystitis without hematuria PCOS (polycystic ovarian syndrome) Polycystic ovaries Fallopian tube disorder Unspecified noninflammatory disorder of ovary, fallopian tube, and broad ligament documented in this encounter [facility] Healthcare[facility]* Diagnosis Well woman exam with routine gynecological exam Routine gynecological examination documented in this encounter [facility] Healthcare[facility] note* Diagnosis Skin mole documented in this encounter [facility] HealthcareEvaluation noteNo assessment information [facility] Work Phone: Evaluation note* Diagnosis Encounter for preprocedural laboratory examination- Primary Abnormal uterine bleeding Unspecified disorder of menstruation and other abnormal bleeding from female genital tract documented in this encounter [facility] Work Phone: Evaluation note* Diagnosis Amenorrhea Absence of menstruation Missed menses , unspecified gestational age (HHS-HCC) Encounter for supervision of normal first in first trimester ([facility]) 9 weeks gestation of ([facility]) Vitamin D deficiency History of hypertension Personal history of other diseases of circulatory system [facility] Diagnosis 13 weeks gestation of (HHS-HCC) Second trimester (HHS-HCC) state, incidental Acute nonintractable headache, unspecified headache type documented in this encounter [facility] HealthcareEvaluation note* Diagnosis 15 weeks gestation of (HHS-HCC) Second trimester (HHS-HCC) state, incidental Acute nonintractable headache, unspecified headache type BP check Screening for hypertension Gestational hypertension, antepartum (HHS-HCC) induced hypertension, antepartum (HHS-HCC) Transient hypertension of , antepartum documented in this encounter [facility] HealthcareEvaluation note* Diagnosis Hypertension affecting in second trimester- Primary [facility] filedocumented in this [facility] filedocument[facility] filedocumented in this encounter [facility] Family History Relationship Condition Age [...] Reason Comments Infertility Reason Comments New Patient NURSE CASE MANAGEMENT PALPITATIONS SCHE D W/ PT LABS HM AT [facility] LABS AT PCP Specialty Diagnoses / Procedures Referred By Contac t Referred To Contact Cardiology Diagnoses Heart palpitations Sabiha Deleon, PET CARE ASSISTANT-BRANCH ASSOCIATE [address] [place] [address] [facility] [address] [address] Referral ID Status Reason Start Date Expiration Date Visits Requested Visits Authorized [id number] Pending Review Specialty Services Required 01/25/2024 01/24/2025 [...] November 24, 2023 End: November 24, 2023 Photo Mask Inspector Relationship Specialty Start Date End Date Judy Caal PCP - [facility] 02/20/24 Photo Mask Inspector Relationship Specialty Start Date End Date Judy Caal PCP - [facility] 02/20/24 Photo Mask Inspector Relationship Specialty Start Date End Date Judy Caal PCP - [facility] [place] [facility] 02/20/24 Photo Mask Inspector Relationship Specialty Start Date End Date Kromer, Judy PCP - [facility] [place] [facility] 02/20/24 Photo Mask Inspector Relationship Specialty Start Date End Date Kromer, Judy PCP - [facility] [place] [facility] 02/20/24 Photo Mask Inspector Relationship Specialty Start Date End Date Kromer, Judy PCP - [facility] [place] [facility] 02/20/24 Photo Mask Inspector Relationship Specialty Start Date End Date Kromer, Judy PCP - [facility] [place] [facility] 02/20/24 Photo Mask Inspector Relationship Specialty Start Date End Date [facility] [address] [place], [place] PCP - General Family Medicine 11/12/22 Photo Mask Inspector Relationship Specialty Start Date End Date [facility] [address] [facility] [place] [place] P[facility] - General Family Medicine 11/12/22 Photo Mask Inspector Relationship Specialty Start Date End Date [facility] [address] [facility] [place] [place] PCP - General Family Medicine 11/12/22 Photo Mask Inspector Relationship Specialty Start Date End Date Lima Caalsa PCP - [facility] [place] [facility] 02/20/24 Photo Mask Inspector Relationship Specialty Start Date End Date Alexeyomer, Judy PCP - [facility] [place] [facility] 02/20/24 Photo Mask Inspector Relationship Specialty Start Date End Date Kromer, Judy PCP - [facility] [place] [facility] 02/20/24 Photo Mask Inspector Relationship Specialty Start Date End Date Kromer, Judy PCP - [facility] [place] [facility] 02/20/24 Team Status: Inactive Member Role Status Dates Israel Broderick DO Attending Provider Active Start : December 18, 2024 End: December 18, 2024 Photo Mask Inspector Relationship Specialty Start Date End Date June Trinidad LPN Licensed Practical Nurse Reproductive Endocrinology and Infertility 01/01/25 Photo Mask Inspector Relationship Specialty Start Date End Date Judy Caal PCP - [facility] [place] [facility] 02/20/24 Photo Mask Inspector Relationship Specialty Start Date End Date Judy Caal PCP - [facility] [place] [facility] 02/20/24 Photo Mask Inspector Relationship Specialty Start Date End Date Judy Caal PCP - [facility] [place] [facility] 02/20/24 Photo Mask Inspector Relationship Specialty Start Date End Date Judy Caal PCP - [facility] [place] [facility] 02/20/24 Photo Mask Inspector Relationship Specialty Start Date End Date Health [facility], [facility] [address] [place] PCP - General Family Medicine 11/03/24 Goals (unrecognized section and content) Goals may be documented in a n alternate section INFORMATION SOURCE (unrecogn ized section and content) DATE CREATED AUTHOR 11/06/2024 [facility] DATE CREATED AUTHOR AUTHOR'S ORGANIZ ATION 12/29/2024 [facility] DATE CREATED AUTHOR AUTHOR'S ORGANIZ ATION 01/07/2025 [facility] DATE CREATED AUTHOR AUTHOR'S ORGANIZ ATION 04/13/2025 [facility] dical Specialists [facility] FOR RECORDS PERTAINING TO PATIENTS WHO ARE [...] BE BASED ON THE PRIMARY CLINICAL RECORDS. [facility] [employer] provides no warranty or guarantee of the accuracy or completeness of information in this document.
--- OUTSIDE RECORDS SUMMARY | 2025-04-21 09:26 | XMS_ITS | Encounter Summary ---
Author Organization [facility] Address [address] [place] [address] Care Team Providers Care Human Resource Statistician Name Role Phone Judy Caal Unavailable Unavailable Encounter Details Date Type Department Care Team (Late st Contact Info) Description 06/01/2024 Abstract LIA[facility] HEAD [facility] [place] [address] Caesar Broderick DO [address], [facility]11 Social History Tobacco Use Types Packs/Day [...] 04/25/2025 11:10 AM EDT Routine LIANA HEAD [facility] [place] [address] Caesar Broderick DO [address], [facility]11 12/16/2025 3:00 PM EDT Office Visit LIANA HEAD [facility] [place] [address] Caesar Broderick DO [address], [facility]11 documented as of this encounter Visit Diagnoses Not on filedocumented in this encounter Care Teams Human Resource Statistician Relationship Specialty Start Date End Date Judy Caal PCP - [facility] RECREATION FACILITY MANAGER 02/20/24 documented as of this encounter
--- OUTSIDE RECORDS SUMMARY | 2025-04-21 09:26 | XMS_ITS | Encounter Summary ---
Author Organization [facility] Address [address] [place] [address] Care Team Providers Care Bar Useful Or Busser Name Role Phone Judy Caal Unavailable Unavailable Encounter Details Date Type Department Care Team (Late st Contact Info) Description 04/10/2024 Abstract LIANA HEAD [facility] [place] [address] Caesar Broderick DO [address], [facility]11 Social History Tobacco Use Types Packs/Day [...] 04/25/2025 11:10 AM EDT Routine LIANA HEAD [facility] [place] [address] Caesar Broderick DO [address], [facility]11 12/16/2025 3:00 PM EDT Office Visit LIANA HEAD [address] [place] [address] Caesar Broderick DO [address], [facility]11 documented as of this encounter Visit Diagnoses Not on filedocumented in this encounter Care Teams Bar Useful Or Busser Relationship Specialty Start Date End Date Judy Caal PCP - [facility] RETAIL SUPPORT SPECIALIST 02/20/24 documented as of this encounter
--- OUTSIDE RECORDS SUMMARY | 2025-04-21 09:26 | XMS_ITS | Clinical Summary ---
Author Organization [facility] tem Address [id number] [address] [place] [address] Care Team Providers Care Director Of Sleep Name Role Phone [facility], [facility] Primary Care Provider Allergies No known active allergies Medications sertraline (ZOLOFT) 25 mg tablet Take by mouth daily. Active omeprazole (PriLOSEC) 20 mg capsule Take 1 capsule (20 mg total) by mouth in the morning. Active cholecalciferol 10 mcg (400 unit) tablet 2 tablets (800 Units total) in the morning. 01/26/2024 Active Active Problems Problem Noted Date Diagnosed Date Heart palpitations 03/13/2024 Encounters Date Type Department Care Team Description 04/19/2025 Orders Only Maternal- Medicine at [facility] [address] [place] [address] Joann Moise, RN Hypertension affecting in second trimester (Primary Dx) from Last 3 Months Family History Medical [...] 03/13/2024 10:50 AM EDT Plan of Treatment Upcoming Encounters Date Type Department Care Team (Late st Contact Info) Description 05/17/2025 7:30 AM EDT Appointment [facility] [address] [place] [phone] 05/17/2025 9:00 AM EDT Office Visit Maternal- Medicine at [facility] [address] [place] [address] Clair Hare MD [address] [facility], [address] [place] [address] Sheila Cruz MD [address] [address] Health Maintenance Due Date Last Done Comments Depression Screening 2004 DTaP,Tdap and Td Vaccines (1 - Tdap) 2011 Adult BMI Screening 03/13/2025 03/13/2024 Influenza Vaccine 04/22/2025 Tobacco Screening 11/03/2025 11/03/2024 Pap Smear 11/23/2025 11/23/2022, 04/11/2022, 11/19/2022 Medical Devices Not on file Procedures [...] Narrative COPATH - 11/24/2022 1:05 PM EDT [facility] [address] [place] [address] Gynecologic Cytology Consultation Patient Name:ELLEN RAMIRES:1990 (Age: 32)Gender:FTaken:11/23/2022Reported:11/24/2022hysician(s):Bethany Raymundo CNP ([phone])Copy To: Rec. #:[id number]: #[id number] Final Cytologic Interpretation ThinPrep Pap Test (Cervical): Satisfactory for evaluation. A transformation zone component is present. NEGATIVE FOR INTRAEPITHELIAL LESION OR MALIGNANCY. j/11/24/2022 Interpretation performed at [facility], [address] [place] [address], License number: [id number]. Electronically Signed Out By ZORA Walter(ASCP) Date of Last Menstrual Period: (None Given) Other Clinical Conditions: Z12.4 Screening for malignant neoplasm of cervix Z11.51 Screening for HPV Source of Specimen ThinPrep Pap Test (Cervical) Thin Prep Pap (COLLISION CENTER MANAGER) Fee Code(s): G0145 Bethany Raymundo [employer] PATHOLOGY/CYTOLOGY ORDE LIZETH Final Result COPATH from Last 3 Months or Most Recently Relevant to Health Maintenance Insurance [facility] MEDICAID Care Teams Director Of Sleep Relationship Specialty Start Date End Date Services, [facility] [address] [place], [place] PCP - General Family Medicine 11/03/24
[2025-04-21 13:32] LABS: Total Protein Urine Random <6.0 mg/dL (<=11.9)
[2025-04-21 13:50] LABS: Total Volume 24 Hour Urine 2500 mL/24hr
== END 2025-04-21 09:20 | disposition home or self-care (01) ==
LOC: LAB 09:19
PROVIDERS: PCP Nurse Practitioner; Visit Provider Obstetrics & Gynecology
DX: O13.9 Gestational [pregnancy-induced] hypertension without significant proteinuria, unspecified trimester (principal)
CPT/HCPCS: 84156

== ENCOUNTER 2025-05-23 14:06 | Outpatient (OUT) | payer MEDICAID, SELFPAY ==
--- OUTSIDE RECORDS SUMMARY | 2025-05-23 19:37 | XMS_ITS | CCD ---
Author Organization [facility] Care Team Providers Care System Manager Name Role Phone Pinky Singh Unavailable AfuaJudy Unavailable Unavailable Unavailable Primary Care Provider Unavailabl e Services, [facility] Primary Care Provider Caesar Broderick DO Attending Provider [phone] Davie, Caesar Attending Unavailable Davie, Caesar Admitting Unavailable White HUMAN RESOURCES COMPENSATION ANALYST, June A Unavailable Unavailable ROBBIE LOPEZ Attending Unavailable Services, [facility] Primary Care Provider DAVIE, CAESAR Attending Unavailable DAVIE, CAESAR Attending Unavailable DAVIE, CAESAR Attending Unavailable DAVIE, CAESAR Attending Unavailable DAVIE, CAESAR Attending Unavailable DAVIE, CAESAR Attending Unavailable DAVIE, CAESAR Attending Unavailable DAVIE, CAESAR Attending Unavailable DAVIE, CAESAR Attending Unavailable SERVICES, [facility] Primary Care Unava ilable MILLIE VILLAGRAN Attending Unavailable SERVICES, [facility] Primary Care Unava ilable FRANCIE ABRAMS Attending Unavailable Medications Current Medications Medication Drug Class(es) Dates Sig (Normalized) Sig (Original) amoxicillin 875 mg / clavulanate 125 mg oral tablet (2 sources) Penicillin-class Antibacterial Start: 11-24-2023 take 1 tablet by mouth twice daily Amoxicillin-Pot Clavulanate 875-125 mg tablet Active 1 TAB PO Twice daily November 24, 2023 12:00am aspirin 81 mg delayed release oral tablet (2 sources) Platelet Aggregation Inhibitor, Nonsteroidal Anti-inflammatory Drug take 1 tablet by mouth in the morning aspirin 81 mg Take 1 tablet (81 mg total) by mouth in the morning. Active cholecalciferol 0.01 mg oral tablet (20 sources) [...] ONCE DAILY FOR 30 DAYS 03/28/2025 Discontinued clobetasol propionate 0.0005 mg/mg topical ointment (2 sources) Corticosteroid Start: 05-17-2025 End: 05-31-2025 clobetasoL (TEMOVATE) 0.05 % ointment Indications: Acute palmoplantar pustular psoriasis , Chronic hypertension affecting , 20 weeks gestation of Apply a thin layer to the affected areas twice daily. 30 g 05/17/2025 05/31/2025 Active clomiPHENE citrate 50 mg oral tablet (3 [...] nostril labetalol hydrochloride 200 mg oral tablet (9 sources) beta-Adrenergic Noah Start: 04-11-2025 End: 05-11-2025 take 1 tablet by mouth once in the morning labetalol (Normodyne) 200 MG tablet Indications: Second trimester (HHS-HCC) , Gestational hypertension, antepartum (HHS-HCC) Take 1 tablet (200 mg) by mouth in the morning and 1 tablet (200 mg) before bedtime. 60 tablet 04/11/2025 05/11/2025 Active End: 05-17-2025 take 1 tablet by mouth in the morning, then take 1 tablet by mouth at bedtime labetaloL (NORMODYNE) 200 mg tablet Take 1 tablet (200 mg total) by mouth in the morning and 1 tablet (200 mg total) before bedtime. 05/17/2025 Discontinued magnesium oxide 400 mg oral tablet (13 sources) Start: 03-28-2025 End: 04-27-2025 take 1 tablet by mouth once daily magnesium oxide (Mag-Ox) 400 MG tablet Indications: Second trimester ([facility]) , Acute nonintractable headache, unspecified headache type Take 1 tablet (400 mg) by mouth Daily 30 tablet 6 03/28/2025 04/27/2025 Active metFORMIN hydrochloride 500 mg oral tablet (20 sources) Biguanide Start: 05-22-2024 metFORMIN (Glu cophage) 500 mg tablet 1 tablet (500 mg). [...] tablet 11 04/10/2024 03/01/2025 Discontinued (Therapy completed) End: 05-17-2025 take 1 tablet by mouth once daily at breakfast metFORMIN XR (GLUCOPHAGE XR) 500 mg 24 hr tablet Take 1 tablet (500 mg total) by mouth daily with breakfast. 05/17/2025 Discontinued NIFEdipine 30 mg osmotic 24 hr extended release oral tablet (2 sources) Dihydropyridine Calcium Channel Noah Start: 05-17-2025 take 1 tablet by mouth every twenty-four hours at bedtime NIFEdipine XL (PROCARDIA XL) 30 mg 24 hr tablet Indications: Chronic hypertension affecting , 20 weeks gestation of Take 1 tablet (30 mg total) by mouth in the morning and at bedtime. 60 tablet 2 05/17/2025 Active Start: 05-17-2025 take 1 tablet by curtis th every twenty-four hours at bedtime NIFEdipine XL (PROCARDIA XL) 30 mg 24 hr tablet Indications: Chronic hypertension affecting , 20 weeks gestation of Take 1 tablet (30 mg total) by mouth in the morning and at bedtime. 60 tablet 2 05/17/2025 Active predniSONE 20 mg oral tablet (2 sources) Start: 11-24-2023 take 1 tablet by mouth twice daily Prednisone 20 mg tablet Active 20 MG PO Twice daily 10 November 24, 2023 12:00am 115/iron/folic acid ( 19 ORAL) (2 sources) take 1 tablet by mouth in the morning 115/iron/folic acid ( 19 ORAL) Take 1 tablet by mouth in the morning. Active sertraline 25 mg oral tablet (20 sources) Serotonin Reuptake Inhibitor Start: 11-06-2024 take 2 tablets by mouth once daily sertraline (Zoloft) 25 MG tablet Take 50 mg by mouth 1 (one) time each day at the same time 11/06/2024 Active Start: 11-06-2024 End: 05-03-2024 sertraline (Zoloft) 25 MG ta blet 1 (one) time each day at the same time 11/06/2024 Active Start: 08-04-2023 End: 04-10-2024 take 1 tablet by mouth once daily sertraline (Zoloft) 50 MG tablet Take 50 mg by mouth Daily 08/04/2023 04/10/2024 Discontinued (Other) sertraline (ZOLO FT) 25 mg tablet Take by mouth daily. Active Completed/Discontinued Medications Medication Drug Class(es) Dates Sig [...] pain] 05-03-2024 Episodic Contraceptive and procreative management (8 sources) Patient encounter status; Translations: [Encounter for other procreative management] 07-23-2024 Episodic Headache; including migraine (4 sources) Acute headache; Translations: [Acute nonintractable headache, unspecified headache type] 03-28-2025 Episodic Hypertension complicating ; childbirth and the puerperium (7 sources) Hypertension complicating ; Translations: [Unspecified maternal hypertension, second trimester] 04-19-2025 Chronic Hypertension complicating ; childbirth and the puerperium (8 sources) Hypertension AND/OR vomiting complicating childbirth AND/OR puerperium; Translations: [Gestational [-induced] hypertension without significant proteinuria, unspecified trimester] Onset: 04-25-2025 04-11-2025 Episodic Immunizations and screening for infectious disease (6 sources) Contact with and (suspected) exposure to other viral communicable diseases; Translations: [Contact with or exposure to other viral diseases] Episodic Menstrual disorders (2 sources) Amenorrhea; Translations: [Amenorrhea, unspecified] 03-01-2025 Chronic Nutritional deficiencies (3 sources) Vitamin D deficiency; Translations: [Vitamin D deficiency, unspecified] 03-01-2025 Chronic Open wounds of extremities (2 sources) Laceration without foreign body of right thumb without damage to nail, initial encounter; Translations: [Laceration of finger] Onset: 04-29-2025 Episodic Other aftercare (2 sources) Postoperative visit; Translations: [Encounter for other specified surgical aftercare] 06-11-2024 Episodic Other and unspecified benign neoplasm (1 source) Pigmented skin lesion ; Translations: [Melanocytic nevi, unspecified] 12-18-2024 Episodic Other circulatory disease (1 source) H/O: hypertension; Translations: [Personal history of other diseases of the circulatory system] 03-01-2025 Episodic Other complications of (3 sources) Maternal obesity complicating , childbirth and the puerperium, antepartum; Translations: [Obesity complicating , unspecified trimester] 05-17-2025 Chronic Other endocrine disorders (20 sources) Polycystic ovary syndrome; Translations: [Polycystic ovarian syndrome] Onset: 07-30-2024 07-23-2024 Chronic Other female genital disorders (4 sources) Abnormal uterine bleeding; Translations: [Abnormal uterine and vaginal bleeding, unspecified] 04-10-2024 Chronic Other female genital disorders (2 sources) Abnormal uterine and vaginal bleeding, unspecified; Translations: [Abnormal uterine and vaginal bleeding, unspecified] Onset: 01-03-2025 Chronic Other inflammatory condition of skin (3 sources) Pustular psoriasis of palms and soles; 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] 05-17-2025 Chronic Other and delivery including normal (8 sources) ; Translations: [Encounter for supervision of normal , unspecified, unspecified trimester] 03-01-2025 Episodic Other screening for suspected conditions (not mental disorders or infectious disease) (2 sources) Alpha-fetoprotein blood test status; Translations: [Encounter for screening for raised alphafetoprotein level] 04-25-2025 Episodic Other upper respiratory infections (1 source) [...] [15 weeks gestation of ] 04-11-2025 Episodic Residual codes; unclassified (2 sources) Gestation period, 17 weeks; Translations: [17 weeks gestation of ] 04-25-2025 Episodic Residual codes; unclassified (1 source) Gestation period, 20 weeks; Translations: [20 weeks gestation of ] 05-17-2025 Episodic Past or Other Problems Problem Classification Problem Date Documented Da te Episodic/Chronic Cardiac dysrhythmias (6 sources) Palpitations; Translations: [Palpitations] Onset: 03-13-2024 03-13-2024 Episodic Nonspecific chest pain (3 sources) Chest pain, unspecified; Translations: [Chest pain] Onset: 11-03-2024 Episodic Other female genital disorders (20 sources) Fallopian tube disorder; Translations: [Noninflammatory disorder of ovary, fallopian tube and broad ligament, unspecified] Onset: 07-30-2024 05-03-2024 Episodic Unclassified (2 sources) Patient encounter status 11-12-2024 Unclassified (1 source) Onset: 01-03-2025 01-03-2025 Urinary tract infections (3 sources) Acute cystitis; Translations: [Acute cystitis without hematuria] Onset: 11-03-2024 11-12-2024 Episodic Viral infection (1 source) COVID-19 Results Test Name Value Interpretation Reference Range Facility Urinalysis macro (dipstick) panel (U)on 04-25-2025 Bilirubin, UA Negative Negative - 4(70) +++ mg/dL [facility] Blood, UA Negative Negative - 50 Surjit/mcL [facility] Clarity, UA Clear [facility] re Color, UA Yellow [facility] e Glucose, UA Negative Negative - 2000(110) ++++ mg/dL [facility] Interpretation and review of laboratory results Normal [facility] Ketones, UA Negative Negative - 160(16) ++++ mg/dL [facility] Leukocytes, UA Negative Negative - 500+++ Kaleigh/mcL [facility] Nitrite, UA Negative Negative - Positive [facility] pH, UA 6 5 - 9 [facility] e Protein, UA Negative Negative - 1999(20) ++++ mg/dL [facility] Spec Grav, UA 1.015 1 - 1.03 [facility] Urobilinogen, UA 1.0 0.2 - 12 [facility]dL [facility] TOTAL PROTEIN 24 HOUR UR INEon 04-21-2025 TOTAL PROTEIN URINE RANDOM <6.0 NINF - 11.9 mg/dL [facility] TOTAL VOLUME 24 HOUR URINE 2500 mL/24hr [facility] Health[facility] e ALL CBC WITH AUTO DIFFon BASOPHILS ABSOLUTE AUTO 0 [facility] Basophils/100 WBC (Bld) 0.2 % 0.2 - 2.0 % [facility] Eosinophils/100 WBC (Bld) 2.9 % 0.9 - 7.0 % [facility] Erythrocyte distribution width (RBC) [Ratio] 12.3 % 11.0 - 15.0 % [facility] IMMATURE GRANULOCYTES ABS AUTO 0.09 High [facility] Immature granulocytes/100 WBC (Bld) 0.7 % High 0.0 - 0.5 % [facility] Interpretation and review of laboratory results Abnormal [facility] LYMPHOCYTES ABSOLUTE AUTO 2 [facility] Lymphocytes/100 WBC (Bld) 15.4 % Low 20.5 - 60.0 % [facility] MCH (RBC) [Entitic mass] 31.3 pg 26.7 - 34.0 pg [facility] MCHC (RBC) [Mass/Vol] 33.6 g/dL 29.9 - 35.2 g/dL [facility] MCV (RBC) [Entitic vol] 93.2 fL 81.0 - 99.0 fL [facility] MONOCYTES ABSOLUTE AUTO 0.5 [facility] Monocytes/100 WBC (Bld) 4.1 % 1.7 - 12.0 % [facility] NEUTROPHILS ABSOLUTE AUTO 9.9 High [facility] Neutrophils/100 WBC (Bld) 76.7 % High 43.0 - 75.0 % [facility] Platelet mean volume (Bld) [Entitic vol] 10.2 fL 9.5 - 13.5 fL [facility] EO # 0.4 [facility] e TBH PLT 251 [facility] TBH RBC 3.8 Low [facility] e TB WBC 13 High [facility] e [facility] APTTon 04-17-2025 aPTT Coag (Bld) [Time] 26.5 s Pr [facility] CBC without diffon Platelets (Bld) [#/Vol] 251 10*3/uL [facility] Rbc Mcv (Fl) By Automated Count 93.2 [facility] Laboratory - Hematology and Cell countson 04-17-2025 Hematocrit (Bld) [Volume fraction] 35.4 % [facility] e Hemoglobin (Bld) [Mass/Vol] 11.9 g/dL [facility] No Panel Informationon 04-17 [facility] e Urinalysis macro (dipstick) panel (U)on 04-11-2025 Bilirubin, UA Negative Negative - 4(70) +++ mg/dL [facility] Blood, UA Negative Negative - 50 Surjit/mcL [facility] Clarity, UA Clear [facility] re Color, UA Yellow [facility] e Glucose, UA Negative Negative - 1999(110) ++++ mg/dL [facility] Interpretation and review of laboratory results Normal [facility] Ketones, UA Negative Negative - 160(16) ++++ mg/dL [facility] Leukocytes, UA Negative Negative - 500+++ Kaleigh/mcL [facility] Nitrite, UA Negative Negative - Positive [facility] pH, UA 6 5 - 9 [facility] Health[facility] e Protein, UA Negative Negative - 1999(20) ++++ mg/dL [facility] Spec Grav, UA 1.015 1 - 1.03 [facility] Urobilinogen, UA 1.0 0.2 - 12 mg/dL [facility] Urinalysis macro (dipstick) panel (U)on 03-28-2025 Bilirubin, UA Negative Negative - 4(70) +++ mg/dL [facility] Blood, UA Negative Negative - 50 Surjit/mcL [facility] Clarity, UA Clear [facility] re Color, UA Yellow [facility] e Glucose, UA Negative Negative - 1999(110) ++++ mg/dL [facility] Interpretation and review of laboratory results Abnormal [facility] Ketones, UA Negative Negative - 160(16) ++++ mg/dL [facility] Leukocytes, UA Positive Negative - 500+++ Kaleigh/mcL [facility] Comment on above: 2+ Nitrite, UA Negative Negative - Positive [facility] pH, UA 6 5 - 9 [facility] e Protein, UA Negative Negative - 1999(20) ++++ mg/dL [facility] Spec Grav, UA 1.02 1 - 1.03 [facility] Urobilinogen, UA 1.0 0.2 - 12 mg/dL [facility] ALL CBC WITH AUTO DIFFon BASOPHILS ABSOLUTE AUTO 0.1 [facility] Basophils/100 WBC (Bld) 0.5 % 0.2 - 2.0 % [facility] Eosinophils/100 WBC (Bld) 4 % 0.9 - 7.0 % [facility] Erythrocyte distribution width (RBC) [Ratio] 12.2 % 11.0 - 15.0 % [facility] IMMATURE GRANULOCYTES ABS AUTO 0.08 High [facility] Immature granulocytes/100 WBC (Bld) 0.6 % High 0.0 - 0.5 % [facility] Interpretation and review of laboratory results Abnormal [facility] LYMPHOCYTES ABSOLUTE AUTO 2.6 [facility] Lymphocytes/100 WBC (Bld) 18.4 % Low 20.5 - 60.0 % [facility] MCH (RBC) [Entitic mass] 31.5 pg 26.7 - 34.0 pg [facility] MCHC (RBC) [Mass/Vol] 34.1 g/dL 29.9 - 35.2 g/dL [facility] MCV (RBC) [Entitic vol] 92.4 fL 81.0 - 99.0 fL [facility] MONOCYTES ABSOLUTE AUTO 0.6 [facility] Monocytes/100 WBC (Bld) 4.3 % 1.7 - 12.0 % [facility] NEUTROPHILS ABSOLUTE AUTO 10.1 High [facility] Neutrophils/100 WBC (Bld) 72.2 % 43.0 - 75.0 % [facility] Platelet mean volume (Bld) [Entitic vol] 10.2 fL 9.5 - 13.5 fL [facility] Healthc are TBH EO # 0.6 [facility] e TBH PLT 261 [facility] e TB RBC 3.94 Low [facility] TBH WBC 13.9 High [facility] CBC without diffon Platelets (Bld) [#/Vol] 261 10*3/uL [facility] Rbc Mcv (Fl) By Automated Count 92.4 [facility] Drug Screen, Urineon 025 Amphetamine/Methamphet amine Negative [facility] Barbiturates Negative [facility] Benzodiazepines Negative [facility] Cocaine Metabolite Negative [facility] Methadone Negative [facility] Opiates Negative [facility] Oxycodone Negative [facility] Phencyclidine Negative [facility] Thc Marijuana, Urine Negative [facility] HBV surface Ag IA Qlon 03-20 Hepatitis B Surface Antigen Negative [facility] HCV Ab IA Qlon 03-20-2025 HCV Ab Ql (S) Non-Reactive [facility] HIV 1+2 Ab+HIV1 p24 Ag IA Ql on 03-20-2025 HIV 1&2 AB/AG Non-Reactive [facility] Hemoglobin A1con 03-20-2025 HbA1c (Bld) [Mass fraction] 5.1 % 4.0 - 6.0 % [facility] Laboratory - Hematology and Cell countson 03-20-2025 Hematocrit (Bld) [Volume fraction] 36.4 % [facility] e Hemoglobin (Bld) [Mass/Vol] 12.4 g/dL [facility] No Panel Informationon 03-20 [facility] e Rubella IGG immune statuson 03-20-2025 Rubella immune IgG IMMUNE [facility] T. pallidum IgG+IgM IA Ql (S )Ordered By: Christina Bertrand on 03-20-2025 Syphilis Non-Reactive [facility] Type and screenon 03-20-2025 Abo/Rh(D) Positive [facility] HCG ( test) Ql (U)o n 03-01-2025 Interpretation and review of laboratory results Abnormal [facility] Preg Test, Ur Positive Negative [facility] US OB TRANSVAGINALon 025 US OB [...] UA Negative Negative - 4(70) +++ mg/dL [facility] Blood, UA Negative Negative - 50 Surjit/mcL [facility] Clarity, UA Clear [facility] re Color, UA Yellow [facility] Glucose, UA Negative Negative - 1999(110) ++++ mg/dL [facility] Interpretation and review of laboratory results Normal [facility] Ketones, UA Negative Negative - 160(16) ++++ mg/dL [facility] Leukocytes, UA Negative Negative - 500+++ Kaleigh/mcL [facility] Nitrite, UA Negative Negative - Positive [facility] pH, UA 7 5 - 9 [facility] Protein, UA Negative Negative - 1999(20) ++++ mg/dL [facility] Spec Grav, UA 1.005 1 - 1.03 [facility] Urobilinogen, UA 0.2 0.2 - 12 mg/dL [facility] ALL PROGESTERONEon 5 PROGESTERONE 8.7 ng/mL . [facility] are Comment on above: Follicular phase 0.1 - 0.9 Luteal phase 1.8 - 23.9 Ovulation phase 0.1 - 12.0 First trimester 11.0 - 44.3 Second trimester 25.4 - 83.3 Third trimester 58.7 - 214.0 Postmenopausal 0.0 - 0.1 Performed at: [facility] [id number] Demolition Engineer: Yobany Blount PhD, Phone: [phone] [facility] RE[facility] FOR LAB CO RPon 12-26-2024 PATHOLOGY REQUEST FOR LAB RENA [facility] Comment on above: See report. Scanned copy available in EMR. SKIN SPECIMEN [facility] [employer] [facility] ALL PROGESTERONEon 5 PROGESTERONE 37.9 ng/mL . [facility] are Comment on above: Follicular phase 0.1 - 0.9 Luteal phase 1.8 - 23.9 Ovulation phase 0.1 - 12.0 First trimester 11.0 - 44.3 Second trimester 25.4 - 83.3 Third trimester 58.7 - 214.0 Postmenopausal 0.0 - 0.1 Performed at: [facility] [place] [address] [place], [place] [id number] Demolition Engineer: Yobany Blount PhD, Phone: [phone] [facility] e Pathology Request for Lab Co rpon 12-18-2024 Pathology Request for Lab Rena Normal [facility] Comment on above: Order Comment: SKIN SPECIMEN Result Comment: See report. Scanned copy available in EMR. PERFORMED BY: [facility] [address] [facility]. [place] [id number] PATHOLOGIST HOT TAMALE MAN ANAHI TRAN M.D. Performed By: #### P ATH TO [facility] #### [facility] [address] IGP,APTIMA HPV,AGE GDLNon AGE GDLN ACOG TESTING Note . [facility] Comment on above: TESTS RESULT FLAG UN ITS REF RANGE LAB Clinician Provided Cytology Information Source.............Cervix;Endocervix No. of containers..01 ThinPrep Vial Age Algo ACOG Amrjorie... 30-65 01 FLAG LEGEND: L-Low Normal,H-High Normal,LL-Alert Low,HH-Alert High <-Panic Low,>-Panic High,A-Abnormal,AA-Critical Abnormal Performed at: 01 =[facility] [address] [facility] [place] [address] Vonnie Woodard MD, HPV APTIMA Negative Negative [facility] Comment on above: This nucleic acid am plification test detects fourteen high- risk HPV types (16,18,31,33,35,39,45,51,52,56,58,59,66,68) without differentiation. Performed at: =G - [facility] [id number] Demolition Engineer: Vonnie Woodard MD, Phone: [phone] Performed at: - [facility], [place] [id number] Demolition Engineer: Vonnie Woodard MD, Phone: [phone] IGP, APTIMA HPV, RFX 16/18,45 Note . [facility] Comment on above: TESTS RESULT FLAG UN ITS REF RANGE LAB DIAGNOSIS: 02 NEGATIVE FOR INTRAEPITHELIAL LESION OR MALIGNANCY. Specimen adequacy: 02 Satisfactory for evaluation. Endocervical and/or squamous metaplastic cells (endocervical component) are present. Performed by: Clinton Vyas, Pattern Cutter ([facility] . 02 Note: Note 02 The Pap [...] Low,>-Panic High,A-Abnormal,AA-Critical Abnormal Performed at: [address] [facility] [address] [address] Vonnie Woodard MD, BRUSH-SPATULA CERVIX ENDOCERVIX [facility] ALL PROGESTERONEon 5 PROGESTERONE 11.2 ng/mL . [facility] are Comment on above: Follicular phase 0.1 - 0.9 Luteal phase 1.8 - 23.9 Ovulation phase 0.1 - 12.0 First trimester 11.0 - 44.3 Second trimester 25.4 - 83.3 Third trimester 58.7 - 214.0 Postmenopausal 0.0 - 0.1 Performed at: - [facility] [address] [id number] Demolition Engineer: Yobany Blount PhD, Phone: [phone] [employer] CBC AND AUTO DIFFon 11-05-19 25 ABSOLUTE BASOPHIL 0.1 X10E9/L Normal 0.0-0.2 [facility] Comment on above: Performed By: #### 4 8066-5, , THYR, CBCA, CMP #### [facility] ([id number]) [address] [place] [address] ABSOLUTE NEUTROPHIL 6.9 X10E9/L High 1.5-6.6 [facility] Comment on above: Performed By: #### 4 8066-5, , THYR, CBCA, CMP #### [facility] ([id number]) [address] [place] [address] Basophils/100 WBC (Bld) 1.1 % Normal [facility] Comment on above: Performed By: #### 4 8066-5, , THYR, CBCA, CMP #### [facility] ([id number]) [address] [place] [address] Eosinophils (Bld) [#/Vol] 0.3 10*3/uL Normal 0.0-0.[address] [facility] Comment on above: Performed By: #### 4 8066-5, , THYR, CBCA, CMP #### [facility] ([id number]) [address] [place] [address] Eosinophils/100 WBC (Bld) 2.3 % Normal [facility] Comment on above: Performed By: #### 4 8066-5, , THYR, CBCA, CMP #### [facility] ([id number]) [address] [place] [address] Erythrocyte distribution width (RBC) [Ratio] 12.6 % Normal 11.5-15.[address] [facility] Comment on above: Performed By: #### 4 8066-5, , THYR, CBCA, CMP #### [facility] ([id number]) [address] [place] [address] Hematocrit (Bld) [Volume fraction] 40.4 % Normal 35-[address] [facility] Comment on above: Performed By: #### 4 8066-5, , THYR, CBCA, CMP #### [facility] ([id number]) [address] [place] [address] 65706 Hemoglobin (Bld) [Mass/Vol] 13.7 g/dL Normal 11.7-15.[address] [facility] Comment on above: Performed By: #### 4 8066-5, , THYR, CBCA, CMP #### [facility] ([id number]) [address] [place] [address] 68570 Lymphocytes (Bld) [#/Vol] 3.6 10*3/uL High 1.0-3.[address] [facility] Comment on above: Performed By: #### 4 8066-5, , THYR, CBCA, CMP #### [facility] ([id number]) [address] [place] [address] 45380 Lymphocytes/100 WBC (Bld) 31.6 % Normal [facility] Comment on above: Performed By: #### 4 8066-5, , THYR, CBCA, CMP #### [facility] ([id number]) [address] [place] [address] 26402 MCH (RBC) [Entitic mass] 30.9 pg Normal 27-[address] [facility] Comment on above: Performed By: #### 4 8066-5, , THYR, CBCA, CMP #### [facility] ([id number]) [address] [place] [address] 22488 MCHC (RBC) [Mass/Vol] 34.0 g/dL Normal 32-36 [facility] Comment on above: Performed By: #### 4 8066-5, , THYR, CBCA, CMP #### [facility] ([id number]) [address] [place] [address] 53886 MCV (RBC) [Entitic vol] 91 fL Normal 80-[address] [facility] Comment on above: Performed By: #### 4 8066-5, , THYR, CBCA, CMP #### [facility] ([id number]) [address] [place] [address] 28058 Monocytes (Bld) [#/Vol] 0.6 10*3/uL Normal 0-0.[address] [facility] Comment on above: Performed By: #### 4 8066-5, , THYR, CBCA, CMP #### [facility] ([id number]) [address] [place] [address] 84967 Monocytes/100 WBC (Bld) 5.4 % Normal [facility] Comment on above: Performed By: #### 4 8066-5, , THYR, CBCA, CMP #### [facility] ([id number]) [address] [place] [address] 79787 Neutrophils/100 WBC (Bld) 59.6 % Normal [facility] Comment on above: Performed By: #### 4 8066-5, , THYR, CBCA, CMP #### [facility] ([id number]) [address] [place] [address] 72309 Platelet mean volume (Bld) [Entitic vol] 7.9 fL Normal 7-[address] [facility] Comment on above: Performed By: #### 4 8066-5, , THYR, CBCA, CMP #### [facility] ([id number]) [address] [place] [address] 24210 Platelets (Bld) [#/Vol] 346 10*3/uL Normal 150-[address] [facility] Comment on above: Performed By: #### 4 8066-5, , THYR, CBCA, CMP #### [facility] ([id number]) [address] [place] [address] 82050 RBC COUNT 4.44 X10E12/L Normal 3.80-5.[address] [facility] Comment on above: Performed By: #### 4 8066-5, , THYR, CBCA, CMP #### [facility] ([id number]) [address] [place] [address] 14241 WBC (Bld) [#/Vol] 11.5 10*3/uL High 4.0-11.0 [facility] Comment on above: Performed By: #### 4 8066-5, , THYR, CBCA, CMP #### [facility] ([id number]) [address] [place] [address] 16632 COMPREHENSIVE METABOLIC PANE [place] 11-04-2024 Albumin [Mass/Vol] 4.0 g/dL Normal 3.2-5.3 [facility] Comment on above: Performed By: #### 4 8066-5, , THYR, CBCA, CMP #### [facility] ([id number]) [address] [place] [address] 30534 ALP [Catalytic activity/Vol] 50 U/L Normal 39-[address] [facility] Comment on above: Performed By: #### 4 8066-5, , THYR, CBCA, CMP #### [facility] ([id number]) [address] [place] [address] 75727 ALT [Catalytic activity/Vol] 19 U/L Normal 0-[address] [facility] Comment on above: Performed By: #### 4 8066-5, , THYR, CBCA, CMP #### [facility] ([id number]) [address] [place] [address] 24038 Anion gap [Moles/Vol] 11 mmol/L Normal 5-15 [facility] Comment on above: Performed By: #### 4 8066-5, , THYR, CBCA, CMP #### [facility] ([id number]) [address] [place] [address] 51206 AST [Catalytic activity/Vol] 18 U/L Normal 0-[address] [facility] Comment on above: Performed By: #### 4 8066-5, , THYR, CBCA, CMP #### [facility] ([id number]) [address] [place] [address] 76823 Bilirubin [Mass/Vol] 0.4 mg/dL Normal 0.3-1.2 [facility] Comment on above: Performed By: #### 4 8066-5, , THYR, CBCA, CMP #### [facility] ([id number]) [address] [place] [address] 19826 Calcium [Mass/Vol] 9.4 mg/dL Normal 8.5-10.5 [facility] Comment on above: Performed By: #### 4 8066-5, , THYR, CBCA, CMP #### [facility] ([id number]) [address] [place] [address] 72219 Chloride [Moles/Vol] 106 mmol/L Normal 98-109 [facility] Comment on above: Performed By: #### 4 8066-5, , THYR, CBCA, CMP #### [facility] ([id number]) [address] [place] [address] 39977 CO2 [Moles/Vol] 23 mmol/L Normal 22-[address] [facility] Comment on above: Performed By: #### 4 8066-5, , THYR, CBCA, CMP #### [facility] ([id number]) [address] [place] [address] 94595 Creatinine [Mass/Vol] 0.76 mg/dL Normal 0.40-1.00 [facility] Comment on above: Result Comment: METH OD TRACEABLE TO IDMS STANDARD Performed By: #### 4 8066-5, , THYR, CBCA, CMP #### [facility] ([id number]) [address] [place] [address] 18392 eGFR (CKD-EPI) NON-RACE DEPENDENT >90 Normal >[address] [facility] Comment on above: Result Comment: Reported eGFR is based on the CKD-EPI 2020 equation that does not use a race coefficient. Performed By: #### 4 8066-5, , THYR, CBCA, CMP #### [facility] ([id number]) [address] [place] [address] 33315 Glucose [Mass/Vol] 114 mg/dL High 65-99 [facility] Comment on above: Performed By: #### 4 8066-5, , THYR, CBCA, CMP #### [facility] ([id number]) [address] [place] [address] 68363 Potassium [Moles/Vol] 4.1 mmol/L Normal 3.5-5.0 [facility] Comment on above: Performed By: #### 4 8066-5, , THYR, CBCA, CMP #### [facility] ([id number]) [address] [place] [address] 35078 Protein [Mass/Vol] 7.3 g/dL Normal 6.0-8.0 [facility] Comment on above: Performed By: #### 4 8066-5, , THYR, CBCA, CMP #### [facility] ([id number]) [address] [place] [address] 99687 Sodium [Moles/Vol] 140 mmol/L Normal 134-146 [facility] Comment on above: Performed By: #### 4 8066-5, , THYR, CBCA, CMP #### [facility] ([id number]) [address] [place] [address] 02078 Urea nitrogen [Mass/Vol] 13 mg/dL Normal 5-[address] [facility] Comment on above: Performed By: #### 4 8066-5, , THYR, CBCA, CMP #### [facility] ([id number]) [address] [place] [address] 57141 Fibrin D-dimer DDU (PPP) [Ma ss/Vol]on 11-04-2024 D DIMER <150 Normal <[address] [facility] Comment on above: Result Comment: Results <255 ng/mL DDU: The presence of a VTE can safely be excluded with a negative D-Dimer result and Wells score. A negative result doesn't exclude the possibility of DIC. The test be repeated along with other diagnostic tests if the patient's symptoms persist or worsen. [email or web address] Performed By: #### 4 8066-5, 40983-4, THYR, CBCA, CMP #### [facility] ([id number]) [address] [place] [address] 34534 HCG ( test) Ql (U)o n 11-04-2024 Beta HCG ( test) Ql (U) Negative Normal NEG [facility] Comment on above: Performed By: #### 2 106-3 #### [facility] ([id number]) [address] [place] [address] 74032 MAGNESIUMon 11-04-2024 Magnesium [Mass/Vol] 2.3 mg/dL Normal 1.8-2.6 [facility] Comment on above: Performed By: #### 4 8066-5, , THYR, CBCA, CMP #### [facility] ([id number]) [address] [place] [address] 87098 THYROID PROFILEon 11-04-2024 Free T4 [Mass/Vol] 0.88 ng/dL Normal 0.61-1.60 [facility] Comment on above: Performed By: #### 4 8066-5, 43194-7, THYR, CBCA, CMP #### [facility] ([id number]) [address] [place] [address] 00834 TSH 1.78 uIU/mL Normal 0.49-4.[address] [facility] Comment on above: Performed By: #### 4 8066-5, 87591-6, THYR, CBCA, CMP #### [facility] ([id number]) [address] [place] [address] [place] [address] URN MACROSCOPIC NURon 2024 BILIRUBIN LEIDA Negative Normal NEG [facility] Comment on above: Performed By: #### N UM #### [facility] ([id number]) [address] [place] [address] [place] [address] BLOOD/HGB LEIDA Trace Abnormal NEG [facility] Comment on above: Performed By: #### N UM #### [facility] ([id number]) [address] [place] [address] [place] [address] GLUCOSE LEIDA Negative Normal NEG [facility] Comment on above: Performed By: #### N UM #### [facility] ([id number]) [address] [place] [address] [place] [address] KETONES LEIDA Negative Normal NEG [facility] Comment on above: Performed By: #### N UM #### [facility] ([id number]) [address] [place] [address] [place] [address] LEUKOCYTE ESTERASE LEIDA Small Abnormal NEG [facility] Comment on above: Performed By: #### N UM #### [facility] ([id number]) [address] [place] [address] [place] [address] NITRITE LEIDA Negative Normal NEG [facility] Comment on above: Performed By: #### N UM #### [facility] ([id number]) [address] [place] [address] [place] [address] PH LEIDA 6.0 Normal 5.0-8.[address] [facility] Comment on above: Performed By: #### N UM #### [facility] ([id number]) [address] [place] [address] [place] [address] PROTEIN LEIDA Negative Normal NEG [facility] Comment on above: Performed By: #### N UM #### [facility] ([id number]) [address] [place] [address] [place] [address] SPECIFIC GRAVITY LEIDA 1.025 Normal 1.003-1.035 [facility] Comment on above: Performed By: #### N UM #### [facility] ([id number]) [address] [place] [address] UROBILINOGEN LEIDA 0.2 eu/dL Normal <1.1 [facility] Comment on above: Performed By: #### N UM #### [facility] ([id number]) [address] [place] [address] 63146 XR CHEST 1 VWon 11-04-2024 XR CHEST 1 VW XR CHEST 1 VW History: Palpitations Exam/Technique: Portable upright AP chest Comparison: 11/12/2022 Findings: There is no active pulmonary or pleural disease displayed. Cardiac and mediastinal contours appear within normal limits on this AP projection. IMPRESSION: No evidence of active pulmonary disease. 7 Finalized by Tres Giron MD on 11/04/2024 1:02 AM Normal [facility] ALL PROGESTERONEon 5 PROGESTERONE 13.8 ng/mL . [facility] are Comment on above: Follicular phase 0.1 - 0.9 Luteal phase 1.8 - 23.9 Ovulation phase 0.1 - 12.0 First trimester 11.0 - 44.3 Second trimester 25.4 - 83.3 Third trimester 58.7 - 214.0 Postmenopausal 0.0 - 0.1 Performed at: [employer] [id number] Demolition Engineer: Yobany Blount PhD, Phone: [phone] [facility] Healthcar e ALL PROGESTERONEon 5 PROGESTERONE 22.3 ng/mL . [facility] [facility] Health are Comment on above: Follicular phase 0.1 - 0.9 Luteal phase 1.8 - 23.9 Ovulation phase 0.1 - 12.0 First trimester 11.0 - 44.3 Second trimester 25.4 - 83.3 Third trimester 58.7 - 214.0 Postmenopausal 0.0 - 0.1 Performed at: [employer] [id number] Demolition Engineer: Yobany Blount PhD, Phone: [phone] [facility] HOSPITALMazu NetworksHARRY S. TRUMAN MEMORIAL VETERANS' HOSPITALPrePayMecar e ALL PROGESTERONEon 4 PROGESTERONE 8.5 ng/mL . [facility] are Comment on above: Follicular phase 0.1 - 0.9 Luteal phase 1.8 - 23.9 Ovulation phase 0.1 - 12.0 First trimester 11.0 - 44.3 Second trimester 25.4 - 83.3 Third trimester 58.7 - 214.0 Postmenopausal 0.0 - 0.1 Performed at: [address] [id number] Demolition Engineer: Yobany Blount PhD, Phone: [phone] [facility]OSPITALMazu NetworksHARRY S. TRUMAN MEMORIAL VETERANS' HOSPITALPrePayMecar e ALL PROGESTERONEon 4 PROGESTERONE 16.8 ng/mL . [facility] Health are Comment on above: Follicular phase 0.1 - 0.9 Luteal phase 1.8 - 23.9 Ovulation phase 0.1 - 12.0 First trimester 11.0 - 44.3 Second trimester 25.4 - 83.3 Third trimester 58.7 - 214.0 Postmenopausal 0.0 - 0.1 Performed at: [address] [id number] Demolition Engineer: Yobany Blount PhD, Phone: [phone] [facility] [employer] ALL CBC WITH AUTO DIFFon BASOPHILS ABSOLUTE AUTO 0.1 [facility] Basophils/100 WBC (Bld) 0.6 % 0.2 - 2.0 % [facility] Healthcare Eosinophils/100 WBC (Bld) 2.8 % 0.9 - 7.0 % [facility] Erythrocyte distribution width (RBC) [Ratio] 12.1 % 11.0 - 15.0 % [facility] Hematocrit (Bld) [Volume fraction] 40.6 % 36.0 - 48.0 % [facility] Hemoglobin (Bld) [Mass/Vol] 13.5 g/dL 12.0 - 16.0 g/dL [facility] IMMATURE GRANULOCYTES ABS AUTO 0.02 [facility] Immature granulocytes/100 WBC (Bld) 0.3 % 0.0 - 0.5 % [facility] LYMPHOCYTES ABSOLUTE AUTO 1.8 [facility] Lymphocytes/100 WBC (Bld) 23.0 % 20.5 - 60.0 % [facility] MCH (RBC) [Entitic mass] 30.6 pg 26.7 - 34.0 pg [facility] MCHC (RBC) [Mass/Vol] 33.3 g/dL 29.9 - 35.2 g/dL [facility] MCV (RBC) [Entitic vol] 92.1 fL 81.0 - 99.0 fL [facility] MONOCYTES ABSOLUTE AUTO 0.5 [facility] Monocytes/100 WBC (Bld) 6.6 % 1.7 - 12.0 % [facility] NEUTROPHILS ABSOLUTE AUTO 5.3 [facility] Neutrophils/100 WBC (Bld) 66.7 % 43.0 - 75.0 % [facility] Platelet mean volume (Bld) [Entitic vol] 9.8 fL 9.5 - 13.5 fL [facility] Healthc are TBH EO # 0.2 [facility] TB PLT 284 [facility] TB RBC 4.41 [facility] TBH WBC 8.0 [facility] CLINIS[facility]NC [facility] ALL CBC WITH AUTO DIFFon BASOPHILS ABSOLUTE AUTO 0.1 [facility] Basophils/100 WBC (Bld) 0.5 % 0.2 - 2.0 % [facility] Eosinophils/100 WBC (Bld) 2.8 % 0.9 - 7.0 % [facility] Erythrocyte distribution width (RBC) [Ratio] 12.0 % 11.0 - 15.0 % [facility] Hematocrit (Bld) [Volume fraction] 39.7 % 36.0 - 48.0 % [facility] Health[facility] Hemoglobin (Bld) [Mass/Vol] 13.4 g/dL 12.0 - 16.0 g/dL [facility] IMMATURE GRANULOCYTES ABS AUTO 0.03 [facility] Immature granulocytes/100 WBC (Bld) 0.3 % 0.0 - 0.5 % [facility] Interpretation and review of laboratory results Abnormal [facility] LYMPHOCYTES ABSOLUTE AUTO 2.9 [facility] Lymphocytes/100 WBC (Bld) 24.4 % 20.5 - 60.0 % [facility] MCH (RBC) [Entitic mass] 30.7 pg 26.7 - 34.0 pg [facility] MCHC (RBC) [Mass/Vol] 33.8 g/dL 29.9 - 35.2 g/dL [facility] MCV (RBC) [Entitic vol] 91.1 fL 81.0 - 99.0 fL [facility] MONOCYTES ABSOLUTE AUTO 0.6 [facility] Monocytes/100 WBC (Bld) 5.2 % 1.7 - 12.0 % [facility] NEUTROPHILS ABSOLUTE AUTO 8.0 High [facility] Neutrophils/100 WBC (Bld) 66.8 % 43.0 [...] POCT EKGOrdered By: Sheyla Powell on 03-13-2024 [facility] No Panel InformationOrdered By: Pinky Singh on 11-24-2023 Quick Strep (POC) [facility] Cytology Cervical or vaginal smear or scraping studyon 11-19-2022 [facility] COVID/FLU/RSV RT-PCRon 10-11 SARS-CoV-2 (COVID-19) RNA PEACE+probe Ql (Unsp spec) Positive [facility] [employer] Other COVID/FLU/RSV RT-PCR Negative [facility] [employer] Other Vital Signs Date Time Vital Sign Value Performing Clinician Facility 05-17-2025 07:51-0400 Body height 172.7 cm Sheila Cruz MD Work Phone: [facility] 05-17-2025 07:51-0400 Body mass index (BMI) [Ratio] 42.96 kg/m2 Sheila Cruz MD Work Phone: [facility] 05-17-2025 07:51-0400 Body weight 128.14 kg Sheila Cruz MD Work Phone: [facility] 05-17-2025 07:51-0400 Diastolic blood pressure 84 mm[Hg] Sheila Cruz MD Work Phone: [facility] 05-17-2025 07:51-0400 Heart rate 87 /min Sheila Cruz MD Work Phone: [facility] 05-17-2025 07:51-0400 Systolic blood pressure 147 mm[Hg] Sheila Cruz MD Work Phone: [facility] 04-25-2025 11:30-0400 Body mass index (BMI) [Ratio] 42.88 kg/m2 Caesar Davie DO Work Phone: [facility] 04-25-2025 11:30-0400 Body weight 127.91 kg Caesar Davie DO Work Phone: [facility] 04-25-2025 11:30-0400 Diastolic blood pressure 82 mm[Hg] Caesar Davie DO Work Phone: [facility] 04-25-2025 11:30-0400 Systolic blood pressure 138 mm[Hg] Caesar Davie DO Work Phone: [facility] 04-11-2025 11:00-0400 Body mass index (BMI) [Ratio] 42.63 kg/m2 Caesar Davie DO Work Phone: [facility] 04-11-2025 11:00-0400 Body weight 127.19 kg Caesar Davie DO Work Phone: [facility] 04-11-2025 11:00-0400 Diastolic blood pressure 86 mm[Hg] Caesar Davie DO Work Phone: [facility] 04-11-2025 11:00-0400 Systolic blood pressure 140 mm[Hg] Caesar Davie DO Work Phone: [facility] 03-28-2025 11:42-0400 Body mass index (BMI) [Ratio] 42.29 kg/m2 Caesar Davie DO Work Phone: [facility] 03-28-2025 11:42-0400 Body weight 126.15 kg Caesar Davie DO Work Phone: [facility] 03-28-2025 11:42-0400 Diastolic blood pressure 80 mm[Hg] Caesar Davie DO Work Phone: [facility] 03-28-2025 11:42-0400 Systolic blood pressure 138 mm[Hg] Caesar Davie DO Work Phone: [facility] 03-01-2025 10:03-0400 Body mass index (BMI) [Ratio] 41.66 kg/m2 [facility] 03-01-2025 10:03-0400 Body weight 124.29 kg [facility] 03-01-2025 10:03-0400 Diastolic blood pressure 76 mm[Hg] [facility] 03-01-2025 10:03-0400 Systolic blood pressure 124 mm[Hg] [facility] 01-03-2025 10:52-0400 Body height 172.7 cm Robbie Lopez MD Work Phone: [facility] 01-03-2025 10:52-0400 Body mass index (BMI) [Ratio] 40.84 kg/m2 Robbie Lopez MD Work Phone: [facility] 01-03-2025 10:52-0400 Body temperature 97.81 [degF] Robbie Lopez MD Work Phone: [facility] 01-03-2025 10:52-0400 Body weight 121.84 kg Robbie Lopez MD Work Phone: [facility] 01-03-2025 10:52-0400 Diastolic blood pressure 78 mm[Hg] Robbie Lopez MD Work Phone: [facility] 01-03-2025 10:52-0400 Heart rate 73 /min Robbie Lopez MD Work Phone: [facility] 01-03-2025 10:52-0400 Systolic blood pressure 132 mm[Hg] Robbie Lopez MD Work Phone: [facility] 12-18-2024 13:38-0400 Body mass index (BMI) [Ratio] 40.35 kg/m2 Caesar Davie DO Work Phone: [facility] 12-18-2024 13:38-0400 Body weight 120.39 kg Caesar Davie DO Work Phone: [facility] 12-18-2024 13:38-0400 Diastolic blood pressure 72 mm[Hg] Caesar Davie DO Work Phone: [facility] 12-18-2024 13:38-0400 Systolic blood pressure 118 mm[Hg] Caesar Davie DO Work Phone: [facility] 12-10-2024 14:36-0400 Body mass index (BMI) [Ratio] 40.75 kg/m2 Caesar Davie DO Work Phone: [facility] 12-10-2024 14:36-0400 Body weight 121.56 kg Caesar Davie DO Work Phone: [facility] 12-10-2024 14:36-0400 Diastolic blood pressure 78 mm[Hg] Caesar Davie DO Work Phone: [facility] 12-10-2024 14:36-0400 Systolic blood pressure 130 mm[Hg] Caesar Davie DO Work Phone: [facility] 11-12-2024 14:03-0400 Diastolic blood pressure 86 mm[Hg] Caesar Davie DO Work Phone: [facility] 11-12-2024 14:03-0400 Systolic blood pressure 120 mm[Hg] Caesar Davie DO Work Phone: [facility] 07-23-2024 13:12-0500 Body mass index (BMI) [Ratio] 40.01 kg/m2 Caesar Davie DO Work Phone: [facility] 07-23-2024 13:12-0500 Body weight 119.35 kg Caesar Davie DO Work Phone: [facility] 07-23-2024 13:12-0500 Diastolic blood pressure 78 mm[Hg] Caesar Davie DO Work Phone: [facility] 07-23-2024 13:12-0500 Systolic blood pressure 130 mm[Hg] Caesar Davie DO Work Phone: [facility] 06-11-2024 14:39-0400 Body height 172.7 cm Caesar Davie DO Work Phone: [facility] 06-11-2024 14:39-0400 Body mass index (BMI) [Ratio] 39.53 kg/m2 Caesar Davie DO Work Phone: [facility] 06-11-2024 14:39-0400 Body weight 117.94 kg Caesar Davie DO Work Phone: [facility] 06-11-2024 14:39-0400 Diastolic blood pressure 76 mm[Hg] Caesar Davie DO Work Phone: [facility] 06-11-2024 14:39-0400 Systolic blood pressure 128 mm[Hg] Caesar Davie DO Work Phone: [facility] 05-03-2024 11:39-0400 Body weight 118.84 kg Caesar Davie DO Work Phone: [facility] 05-03-2024 11:39-0400 Diastolic blood pressure 78 mm[Hg] Caesar Davie DO Work Phone: [facility] 05-03-2024 11:39-0400 Systolic blood pressure 130 mm[Hg] Caesar Davie DO Work Phone: [facility] 04-10-2024 09:36-0400 Body weight 120.57 kg Caesar Davie DO Work Phone: [facility] 04-10-2024 09:36-0400 Diastolic blood pressure 78 mm[Hg] Caesar Davie DO Work Phone: [facility] 04-10-2024 09:36-0400 Systolic blood pressure 130 mm[Hg] Caesar Davie DO Work Phone: [facility] 03-13-2024 10:50-0400 Body height 172.7 cm James Fraire MD Work Phone: [facility] 03-13-2024 10:50-0400 Body mass index (BMI) [Ratio] 40.66 kg/m2 James Fraire MD Work Phone: [facility] 03-13-2024 10:50-0400 Body weight 121.29 kg James Fraire MD Work Phone: [facility] 03-13-2024 10:50-0400 Diastolic blood pressure 94 mm[Hg] James Fraire MD Work Phone: [facility] 03-13-2024 10:50-0400 Heart rate 83 /min James Fraire MD Work Phone: [facility] 03-13-2024 10:50-0400 SaO2% (BldA) [Mass fraction] 98 % James Fraire MD Work Phone: [facility] 03-13-2024 10:50-0400 Systolic blood pressure 136 mm[Hg] James Fraire MD Work Phone: [facility] 11-24-2023 12:26-0400 Body height 172.72 cm [facility] 11-24-2023 12:26-0400 Body mass index (BMI) [Ratio] 42.6 kg/m2 [facility] 11-24-2023 12:26-0400 Body temperature 97.3 [degF] [facility] 11-24-2023 12:26-0400 Body weight 127.11 kg [facility] 11-24-2023 12:26-0400 Diastolic blood pressure 84 mm[Hg] [facility] 11-24-2023 12:26-0400 Heart rate 75 /min [facility] 11-24-2023 12:26-0400 Respiratory rate 18 /min [facility] 11-24-2023 12:26-0400 SaO2% (BldA) [Mass fraction] 98 % [facility] 11-24-2023 12:26-0400 Systolic blood pressure 130 mm[Hg] [facility] 10-11-2022 11:35-0500 Body height 172.72 cm Pinky Singh Other [facility] 10-11-2022 11:35-0500 Body mass index (BMI) [Ratio] 42.27 kg/m2 Pinky Singh Other [facility] 10-11-2022 11:35-0500 Body temperature 97.8 [degF] Pinky Singh Other [facility] 10-11-2022 11:35-0500 Body weight 126.1 kg Pinky Singh Other [facility] Other 10-11-2022 11:35-0500 Respiratory rate 18 /min Pinky Singh Other [facility] 10-11-2022 11:35-0500 SaO2% (BldA) [Mass fraction] 98 % Pinky Singh Other [facility] Other Encounters Encounter Date Encounter Type Care Provider Facility Start: 05-17-2025 End: 05-17-2025 Orders Only Bethany Lundy LPN [facility] Comment on above: Acute palmoplantar p ustular psoriasis (Primary Dx); Chronic hypertension affecting ; Severe obesity due to excess calories affecting , antepartum ([facility] [facility]); Hypertension affecting in second trimester Start: 05-17-2025 End: 05-17-2025 Office consultation new/estab patient 60 min Clair Hare MD Work Phone: Maternal- Medicine at [facility] Comment on above: Chronic hypertension affecting (Primary Dx); Acute palmoplantar pustular psoriasis; Severe obesity due to excess calories affecting , antepartum ([facility]); 20 weeks gestation of Start: 04-29-2025 End: 04-29-2025 Emergency department patient visit [facility] Start: 04-25-2025 End: 04-25-2025 Bamboo flowsheet Caesar Davie DO Work Phone: [facility] [place] [facility] Start: 04-25-2025 End: 04-25-2025 Bamboo flowsheet Caesar Davie DO Work Phone: [facility] [place] OBRAZN Start: 04-25-2025 End: 04-25-2025 Office outpatient visit 15 minutes Caesar Davie DO Work Phone: [facility] [place] SONIDO Comment on above: Screening, , for anatomic survey ([facility]); Second trimester ([facility]); 17 weeks gestation of ([facility]); Screen for STD (sexually transmitted disease); Need for maternal serum alpha-protein (MSAFP) screening ([facility]); induced hypertension, antepartum ([facility]); Vitamin D deficiency Start: 04-25-2025 End: 04-25-2025 ambulatory CAESAR DAVIE Not Available Start: 04-23-2025 End: 04-23-2025 Chart abstracting Sheila Cruz MD Work Phone: Maternal- Medicine at [facility] Start: 04-21-2025 End: 04-21-2025 Clinisync Result Encounter Caesar Davie DO Work Phone: [facility] External Department Unsolicited Start: 04-21-2025 End: 04-21-2025 Clinisync Result Encounter Caesar Davie DO Work Phone: [facility] External Department Unsolicited Start: 04-19-2025 End: 04-19-2025 Orders Only Joann Moise RN M[facility]- Medicine at [facility] Comment on above: Hypertension affecti ng in second trimester (Primary Dx) Start: 04-17-2025 End: 04-17-2025 Clinisync Result Encounter Caesar Davie DO Work Phone: [facility] External Department Unsolicited Start: 04-17-2025 End: 04-17-2025 Clinisync Result Encounter Caesar Davie DO Work Phone: [facility] External Department Unsolicited Start: 04-11-2025 End: 04-11-2025 Bamboo flowsheet Caesar Davie DO Work Phone: [facility] Start: 04-11-2025 End: 04-11-2025 Bamboo flowsheet Caesar Davie DO Work Phone: [facility] Start: 04-11-2025 End: 04-11-2025 Office outpatient visit 15 minutes Caesar Davie DO Work Phone: [facility] Comment on above: 15 weeks gestation o f ([facility]); Second trimester ([facility]); Acute nonintractable headache, unspecified headache type; BP check; Gestational hypertension, antepartum ([facility]); induced hypertension, antepartum ([facility]) Start: 04-11-2025 End: 04-11-2025 Patient encounter status Caesar Davie DO Work Phone: [facility] Start: 04-11-2025 End: 04-11-2025 ambulatory CAESAR DAVIE Not Available Start: 03-28-2025 End: 03-28-2025 Bamboo flowsheet Caesar Davie DO Work Phone: [facility] Start: 03-28-2025 End: 03-28-2025 Bamboo flowsheet Caesar Davie DO Work Phone: [facility] Start: 03-28-2025 End: 03-28-2025 Office outpatient visit 15 minutes Caesar Davie DO Work Phone: [facility] Comment on above: 13 weeks gestation o f ([facility]); Second trimester ([facility]); Acute nonintractable headache, unspecified headache type Start: 03-28-2025 End: 03-28-2025 ambulatory CAESAR DAVIE Not Available Start: 03-20-2025 End: 03-20-2025 Clinisync Result Encounter Caesar Davie DO Work Phone: [facility] External Department Unsolicited Start: 03-20-2025 End: 03-20-2025 Clinisync Result Encounter Caesar Davie DO Work Phone: [facility] External Department Unsolicited Start: 03-01-2025 End: 03-01-2025 Office outpatient visit 5 minutes Davie Nurse [facility] Start: 03-01-2025 End: 03-01-2025 ambulatory CAESAR DAVIE Not Available Start: 01-16-2025 End: 01-18-2025 Clinisync Result Encounter Caesar Davie DO Work Phone: [facility] External Department Unsolicited Start: 01-16-2025 End: 01-18-2025 Clinisync Result Encounter Caesar Davie DO Work Phone: [facility] External Department Unsolicited Start: 01-03-2025 End: 01-03-2025 Patient encounter procedure Robbie Lopez MD Work Phone: [facility] Comment on above: Encounter for prepro cedural laboratory examination (Primary Dx); Abnormal uterine bleeding Start: 01-03-2025 End: 01-03-2025 Patient encounter status Robbie Lopez MD Work Phone: [facility] Work Phone: Start: 01-03-2025 End: 01-03-2025 ambulatory ROBBIE LOPEZ [facility] Start: 01-03-2025 End: 01-03-2025 Encounter for preprocedural laboratory examination ROBBIE LOPEZ [facility] Start: 12-18-2024 End: 12-26-2024 External Result Encounter Caesar Davie DO Work Phone: [facility] External Department Unsolicited Start: 12-18-2024 End: 12-26-2024 External Result Encounter Caesar Davie DO Work Phone: [facility] External Department Unsolicited Start: 12-18-2024 End: 12-18-2024 Patient encounter procedure Caesar Davie DO Work Phone: [facility] Comment on above: Skin mole Start: 12-18-2024 End: 12-18-2024 ambulatory Caesar Davie [facility] Work Phone: Start: 12-18-2024 End: 12-18-2024 Departed Referred Caesar Davie DO Work Phone: [facility] Start: 12-17-2024 End: 12-18-2024 Clinisync Result Encounter Caesar Davie DO Work Phone: [facility] External Department Unsolicited Start: 12-17-2024 End: 12-18-2024 Clinisync Result Encounter Caesar Davie DO Work Phone: [facility] External Department Unsolicited Start: 12-10-2024 End: 12-10-2024 Patient encounter procedure Caesar Davie DO Work Phone: [facility] Start: 12-10-2024 End: 12-10-2024 Periodic preventive med est patient 18-39 yrs Caesar Davie DO Work Phone: [facility] Comment on above: Well woman exam with routine gynecological exam Start: 12-10-2024 End: 12-10-2024 ambulatory CAESAR DAVIE Not Available Start: 12-10-2024 End: 12-10-2024 Bamboo flowsheet Caesar Davie DO Work Phone: [facility] Start: 12-10-2024 End: 12-13-2024 Bamboo flowsheet Caesar Davie DO Work Phone: [facility] Start: 12-10-2024 End: 12-13-2024 Clinisync Result Encounter Caesar Davie DO Work Phone: [facility] External Department Unsolicited Start: 11-16-2024 End: 11-17-2024 Clinisync Result Encounter Caesar Davie DO Work Phone: [facility] External Department Unsolicited Start: 11-16-2024 End: 11-17-2024 Clinisync Result Encounter Caesar Davie DO Work Phone: [facility] Department Unsolicited Start: 11-12-2024 End: 11-12-2024 Office outpatient visit 15 minutes Caesar Davie DO Work Phone: [facility] Comment on above: Encounter for fertil ity planning; Acute cystitis without hematuria; PCOS (polycystic ovarian syndrome); Fallopian tube disorder Start: 11-12-2024 End: 11-12-2024 Bamboo flowsheet Caesar Davie DO Work Phone: [facility] Start: 11-12-2024 End: 11-12-2024 Bamboo flowsheet Caesar Davie DO Work Phone: [facility] Start: 11-12-2024 End: 11-12-2024 ambulatory CAESAR DAVIE Not Available Start: 11-03-2024 End: 11-04-2024 Emergency department patient visit [facility] Start: 10-18-2024 End: 10-19-2024 Clinisync Result Encounter Caesar Davie DO Work Phone: [facility] External Department Unsolicited Start: 10-18-2024 End: 10-19-2024 Clinisync Result Encounter Caesar Davie DO Work Phone: [facility] External Department Unsolicited Start: 09-17-2024 End: 09-18-2024 Clinisync Result Encounter Caesar Davie DO Work Phone: [facility] External Department Unsolicited Start: 09-17-2024 End: 09-18-2024 Clinisync Result Encounter Caesar Davie DO Work Phone: [facility] External Department Unsolicited Start: 08-16-2024 End: 08-18-2024 Clinisync Result Encounter Caesar Davie DO Work Phone: [facility] External Department Unsolicited Start: 08-16-2024 End: 08-18-2024 Clinisync Result Encounter Caesar Davie DO Work Phone: [facility] External Department Unsolicited Start: 07-23-2024 End: 07-23-2024 Bamboo flowsheet Caesar Davie DO Work Phone: [facility] Start: 07-23-2024 End: 07-23-2024 Bamboo flowsheet Caesar Davie DO Work Phone: [facility] Start: 07-23-2024 End: 07-23-2024 ambulatory CAESAR DAVIE Not Available Start: 07-23-2024 End: 07-23-2024 Office outpatient visit 15 minutes Caesar Davie DO Work Phone: [facility] Comment on above: PCOS (polycystic ova charly syndrome); Encounter for fertility planning Start: 07-18-2024 End: 07-19-2024 Clinisync Result Encounter Caesar Davie DO Work Phone: [facility] External [facility] Unsolicited Start: 07-18-2024 End: 07-19-2024 Clinisync Result Encounter Caesar Davie DO Work Phone: [facility] Unsolicited Start: 06-11-2024 End: 06-11-2024 Postop follow up visit related to original px Caesar Davie DO Work Phone: [facility] Comment on above: Postoperative visit; S/P laparoscopic procedure Start: 06-11-2024 End: 06-11-2024 Bamboo flowsheet Caesar Davie DO Work Phone: [facility] Start: 06-11-2024 End: 06-11-2024 Bamboo flowsheet Caesar Davie DO Work Phone: [facility] Start: 06-11-2024 End: 06-11-2024 ambulatory CAESAR DAVIE Not Available Start: 06-01-2024 End: 06-01-2024 Clinisync Result Encounter Caesar Davie DO Work Phone: [facility] External Department Unsolicited Start: 06-01-2024 End: 06-01-2024 Clinisync Result Encounter Caesar Davie DO Work Phone: [facility] External Department Unsolicited Start: 05-03-2024 End: 05-03-2024 Office outpatient visit 15 minutes Caesar Davie DO Work Phone: [facility] Comment on above: Pre-op examination; Pelvic pain in female; Fallopian tube disorder Start: 05-03-2024 End: 05-03-2024 Preprocedural examination done Caesar Davie DO Work Phone: [facility] Start: 05-03-2024 End: 05-03-2024 ambulatory CAESAR DAVIE Not Available Start: 04-24-2024 End: 04-24-2024 Clinisync Result Encounter Caesar Davie DO Work Phone: [facility] External Department Unsolicited Start: 04-24-2024 End: 04-24-2024 Clinisync Result Encounter Caesar Davie DO Work Phone: [facility] External Department Unsolicited Start: 04-10-2024 End: 04-10-2024 Bamboo flowsheet Caesar Davie DO Work Phone: [facility] Start: 04-10-2024 End: 04-10-2024 Bamboo flowsheet Caesar Davie DO Work Phone: [facility] Start: 04-10-2024 End: 04-10-2024 Office outpatient visit 15 minutes Caesar Davie DO Work Phone: [facility] Comment on above: Encounter for fertil ity planning; PCOS (polycystic ovarian syndrome); Pelvic pain in female; Abnormal uterine bleeding (AUB) Start: 03-13-2024 End: 03-13-2024 Office outpatient visit 15 minutes James Fraire MD Work Phone: [facility] Comment on above: Heart palpitations ( Primary Dx) Start: 03-12-2024 End: 03-12-2024 Telephone encounter Sheyla Powell CMA [facility] Start: 02-22-2024 End: 02-22-2024 Chart abstracting Scanning Provider External [facility] Start: 11-24-2023 End: 11-24-2023 ambulatory [facility] Work Phone: Start: 11-24-2023 End: 11-24-2023 Patient encounter procedure [facility] Work Phone: Start: 10-11-2022 End: 10-11-2022 ambulatory Pinky Singh Other [facility] Other Start: 10-11-2022 Office outpatient ne w 20 minutes Pinky Singh [facility] Procedures Date Procedure Procedure Detail Performing Clinician Start: 04-25-2025 Urnls dip stick/tabl et rgnt non-auto w/o micrscp Caesar Davie DO Work Phone: Start: 04-21-2025 TBH TOTAL PROTEIN 24 HOUR URINE Caesar Davie DO Work Phone: Start: 04-17-2025 Blood count complete automated Not In System Ref Prov Start: 04-17-2025 ALL CBC WITH AUTO DIFF Caesar Davie DO Work Phone: Start: 04-11-2025 Urnls dip stick/tabl et rgnt non-auto w/o micrscp Caesar Davie DO Work Phone: Start: 03-28-2025 Urnls dip stick/tabl et rgnt non-auto w/o micrscp Caesar Davie DO Work Phone: Start: 03-20-2025 Antibody screen Sheila thomas MD Work Phone: Start: 03-20-2025 Drug scrn 1+ class nonchromo Not In System Ref Prov Start: 03-20-2025 Hemoglobin glycosyla shelley a1c Scanning Provider External Start: 03-20-2025 Hepatitis c antibody No t In System Ref Prov Start: 03-20-2025 HIV 1&2 AB/AG SCREEN (P24 AG) Not In System Ref Prov Start: 03-20-2025 Iaad ia hepatitis b surface antigen Not In System Ref Prov Start: 03-20-2025 SYPHILIS TOTAL(UNKNO WN SYPHILIS STATUS) Not In System Ref Prov Start: 03-20-2025 TYPE AND SCREEN Not In System Ref Prov Start: 03-20-2025 ALL CBC WITH AUTO DIFF Caesar Davie DO Work Phone: Start: 03-01-2025 End: 03-01-2025 Urnls dip stick/tablet rgnt non-auto w/o micrscp Caesar Davie DO Work Phone: Start: 01-16-2025 ALL PROGESTERONE Caesar Davie DO Work Phone: Start: 12-18-2024 PATHOLOGY REQUEST FO R LAB RENA Caesar Davie DO Work Phone: Start: 12-17-2024 ALL PROGESTERONE Caesar Davie DO Work Phone: Start: 12-10-2024 IGP,APTIMA HPV,AGE GDLN Caesar Davie DO Work Phone: Start: 12-10-2024 Microscopic observat ion [Identifier] in Cervix by Cyto stain Caesar Davie DO Work Phone: Start: 11-16-2024 ALL PROGESTERONE Caesar Davie DO Work Phone: Start: 10-18-2024 ALL PROGESTERONE Caesar Davie DO Work Phone: Start: 09-17-2024 ALL PROGESTERONE Caesar Davie DO Work Phone: Start: 08-16-2024 ALL PROGESTERONE Caesar Davie DO Work Phone: Start: 07-18-2024 ALL PROGESTERONE Caesar Davie DO Work Phone: Start: 06-01-2024 ALL CBC WITH AUTO DIFF Caesar Davie DO Work Phone: Start: 04-24-2024 ALL CBC WITH AUTO DIFF Caesar Broderick DO Work Phone: Start: 03-13-2024 Ecg routine ecg w/le ast 12 lds w/i&r James Fraire MD Work Phone: Start: 11-24-2023 Quick Strep (POC) Start: 11-23-2022 Microscopic observat ion [Identifier] in Cervix by Cyto stain Scanning External Start: 11-19-2022 Microscopic observat ion [Identifier] in Cervix by Cyto stain Caesar Broderick DO Work Phone: Start: 11-19-2022 Cytp cerv/vag auto t hin layer prep mnl screen Betahny Raymundo [employer] Work Phone: Plan of Treatment Date Care Activity Detail Author Start: 2042 Zoster Vaccines (1 of 2) Zoster Vaccines (1 of 2) [facility] Start: 12-11-2027 Screening for malignant neoplasm of cervix [facility] Start: 11-24-2027 Screening for malignant neoplasm of cervix [facility] Start: 05-17-2026 Adult BMI Screening Adult BMI Screening [facility] Start: 05-17-2026 Tobacco Screening Tobacco Screening [facility] Start: 12-16-2025 End: 12-16-2025 Patient encounter procedure [facility] Start: 11-23-2025 Screening for malignant neoplasm of cervix Pap Smear [facility] Start: 11-19-2025 Screening for malignant neoplasm of cervix Pap Smear [facility] Start: 11-03-2025 Tobacco Screening Tobacco Screening [facility] Start: 06-18-2025 End: 06-18-2025 Telemedicine consultation with patient 06/18/2025 2:00 PM EDT Telemedicine Maternal- Medicine at [facility] [address] [place] [id number] Sheila Cruz MD [address] [facility] 1[address] [place] [address] [facility] at [facility] Start: 06-18-2025 End: 06-18-2025 Patient encounter procedure 06/18/2025 8:00 AM EDT Appointment [facility] - Ultrasound [address] [place] [id number] [facility] - Ultrasound Start: 05-25-2025 End: 05-25-2025 Alpha fetoprotein, maternal Alpha fetoprotein, maternal Lab Routine Need for maternal serum alpha-protein (MSAFP) screening ([facility]) Expected: 05/25/2025 (Approximate), Expires: 05/25/2025 [facility] Comment on above: Expected: 05/25/2025 (Approximate), Expi res: 05/25/2025 Start: 05-23-2025 End: 05-23-2025 Patient encounter procedure 05/23/2025 2:30 PM EDT Routine LIA[facility] HEAD [address] [place] [address] Rosie Qiu, [employer]ER [address] [place] [address] LIANA HEAD Start: 05-20-2025 End: 04-19-2026 US MFM with or without consult US MFM with or without consult Imaging Routine Hypertension affecting in second trimester Expected: 05/20/2025 (Approximate), Expires: 04/19/2026 [facility] Work Phone: Comment on above: Expected: 05/20/2025 (Approximate), Expi res: 04/19/2026 Start: 05-17-2025 End: 05-17-2026 US MFM with or without consult US MFM with or without consult Imaging Routine 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 Severe obesity due to excess calories affecting , antepartum ([facility]) Hypertension affecting in second trimester Expected: 05/17/2025, Expires: 05/17/2026 [facility] Work Phone: Comment on above: Expected: 05/17/2025, Expires: Start: 05-17-2025 End: 05-17-2025 Patient encounter procedure [facility] US Imaging Start: 04-25-2025 End: 04-25-2025 Patient encounter procedure [facility] Latoya HEAD Comment on above: Arrived Start: 04-22-2025 Influenza vaccination [facility] Start: 04-11-2025 End: 04-11-2026 Alanine aminotransferase [Enzymatic activity/volume] in Serum or Plasma ALT Lab Routine Gestational hypertension, antepartum ([facility]) induced hypertension, antepartum ([facility]) Expected: 04/11/2025 (Approximate), Expires: 04/11/2026 [facility] Comment on above: Expected: 04/11/2025 (Approximate), Expi res: 04/11/2026 Start: 04-11-2025 End: 04-11-2026 Aspartate aminotransferase [Enzymatic activity/volume] in Serum or Plasma AST Lab Routine Gestational hypertension, antepartum ([facility]) induced hypertension, antepartum ([facility]) Expected: 04/11/2025 (Approximate), Expires: 04/11/2026 [facility] Comment on above: Expected: 04/11/2025 (Approximate), Expi res: 04/11/2026 Start: 04-11-2025 End: 04-11-2026 CBC W Auto Differential panel - Blood CBC and differential Lab Routine Gestational hypertension, antepartum ([facility]) induced hypertension, antepartum ([facility]) Expected: 04/11/2025 (Approximate), Expires: 04/11/2026 [facility] Comment on above: Expected: 04/11/2025 (Approximate), Expi res: 04/11/2026 Start: 04-11-2025 End: 04-11-2026 Creatinine [Mass/volume] in Serum or Plasma Creatinine Lab Routine Gestational hypertension, antepartum ([facility]) induced hypertension, antepartum ([facility]) Expected: 04/11/2025 (Approximate), Expires: 04/11/2026 [facility] Work Phone: Comment on above: Expected: 04/11/2025 (Approximate), Expi res: 04/11/2026 Start: 04-11-2025 End: 04-11-2026 Lactate dehydrogenase [Enzymatic activity/volume] in Serum or Plasma by Lactate to pyruvate reaction Lactate dehydrogenase Lab Routine Gestational hypertension, antepartum ([facility]) induced hypertension, antepartum ([facility]) Expected: 04/11/2025, Expires: 04/11/2026 [facility] Comment on above: Expected: 04/11/2025, Expires: Start: 04-11-2025 End: 04-11-2026 Protein, urine, 24 hour Protein, urine, 24 hour Lab Routine Gestational hypertension, antepartum ([facility]) induced hypertension, antepartum ([facility]) Expected: 04/11/2025 (Approximate), Expires: 04/11/2026 [facility] Comment on above: Expected: 04/11/2025 (Approximate), Expi res: 04/11/2026 Start: 04-11-2025 End: 04-11-2026 Pt and ptt Pt and ptt Lab Routine Gestational hypertension, antepartum ([facility]) induced hypertension, antepartum ([facility]) Expected: 04/11/2025, Expires: 04/11/2026 [facility] Comment on above: Expected: 04/11/2025, Expires: Start: 04-11-2025 End: 04-11-2026 Urate [Mass/volume] in Serum or Plasma Uric acid Lab Routine Gestational hypertension, antepartum ([facility]) induced hypertension, antepartum ([facility]) Expected: 04/11/2025 (Approximate), Expires: 04/11/2026 [facility] Comment on above: Expected: 04/11/2025 (Approximate), Expi res: 04/11/2026 Start: 04-11-2025 End: 04-11-2026 Urea nitrogen [Mass/volume] in Serum or Plasma BUN Lab Routine Gestational hypertension, antepartum ([facility]) induced hypertension, antepartum ([facility]) Expected: 04/11/2025, Expires: 04/11/2026 [facility] Comment on above: Expected: 04/11/2025, Expires: Start: 04-11-2025 End: 04-11-2025 Patient encounter procedure [facility] Comment on above: Arrived Start: 03-28-2025 End: 03-28-2025 Patient encounter procedure [facility] Comment on above: Arrived Start: 03-13-2025 Adult BMI Screening Adult BMI Screening [facility] Start: 03-13-2025 Tobacco Screening Tobacco Screening [facility] Start: 03-01-2025 End: 03-01-2026 ABO/Rh ABO/Rh Lab Routine Missed menses , unspecified gestational age ([facility]) Expected: 03/01/2025 (Approximate), Expires: 03/01/2026 [facility] Comment on above: Expected: 03/01/2025 (Approximate), Expi res: 03/01/2026 Start: 03-01-2025 End: 03-01-2026 Blood type and Indirect antibody screen panel - Blood Type and screen Lab Routine Missed menses , unspecified gestational age ([facility]) Expected: 03/01/2025 (Approximate), Expires: 03/01/2026 [facility] Work Phone: Comment on above: Expected: 03/01/2025 (Approximate), Expi res: 03/01/2026 Start: 03-01-2025 End: 03-01-2026 Drugs of abuse panel - Urine by Screen method Rapid drug screen, urine Lab Routine , unspecified gestational age ([facility]) Encounter for supervision of normal first in first trimester ([facility]) Expected: 03/01/2025 (Approximate), Expires: 03/01/2026 [facility] Comment on above: Expected: 03/01/2025 (Approximate), Expi res: 03/01/2026 Start: 02-03-2025 End: 04-05-2025 Choriogonadotropin ( test) [Presence] in Urine POCT , urine manually resulted Point of Care Testing Routine Encounter for preprocedural laboratory examination Expected: 02/03/2025 (Approximate), Expires: 04/05/2025 [facility] Work Phone: Comment on above: Expected: 02/03/2025 (Approximate), Expi res: 04/05/2025 Start: 02-03-2025 End: 01-03-2026 Sonohysterogram Sonohysterogram Procedures Routine Abnormal uterine bleeding Expected: 02/03/2025 (Approximate), Expires: 01/03/2026 [facility] Service Area Work Phone: Comment on above: Expected: 02/03/2025 (Approximate), Expi res: 01/03/2026 Start: 02-03-2025 End: 01-03-2026 US.doppler Uterus and Fallopian tubes W saline IU US sonohysterogram Imaging Routine Abnormal uterine bleeding Expected: 02/03/2025 (Approximate), Expires: 01/03/2026 [facility] Work Phone: Comment on above: Expected: 02/03/2025 (Approximate), Expi res: 01/03/2026 Start: 12-18-2024 End: 12-18-2024 Patient encounter procedure 12/18/2024 1:30 PM EDT Procedure Visit [facility] [address] [place] [phone] Caesar Broderick, [address] [place] [address] [facility] Start: 12-18-2024 [facility] Start: 12-10-2024 End: 12-10-2024 Patient encounter procedure [facility] Comment on above: Arrived Start: 11-12-2024 End: 11-12-2024 Patient encounter procedure [facility] Comment on above: Arrived Start: 07-23-2024 End: 07-23-2024 Patient encounter procedure 07/23/2024 1:00 PM EST Office Visit [facility] [address] [place] [phone] Caesar Broderick, DO [address] [place] [address] [facility] Start: 06-11-2024 End: 06-11-2024 Patient encounter procedure 06/11/2024 2:20 PM EDT Office Visit [facility] [address] [place] [address] Caesar Broderick, DO [address] [place] [address] Arrived [facility] Comment on above: Arrived Start: 06-01-2024 End: 06-01-2024 Patient encounter procedure 06/01/2024 8:30 AM EDT Procedure Visit [facility] Caesar Broderick, DO [address] [address] [facility] Start: 05-03-2024 End: 05-03-2024 Patient encounter procedure 05/03/2024 11:40 AM EDT Consult [facility] [address] [place] [place] [id number] Caesar Broderick, DO [address] [address] [facility] Start: 04-22-2024 COVID-19 Vaccine ( season) COVID-19 Vaccine ( season) [facility] Start: 04-22-2024 Influenza vaccination [employer] [facility] Start: 04-10-2024 End: 04-10-2025 Antimullerian hormone (AMH) Antimullerian hormone (AMH) Lab Routine PCOS (polycystic ovarian syndrome) Expected: 04/10/2024 (Approximate), Expires: 04/10/2025 [facility] Comment on above: Expected: 04/10/2024 (Approximate), Expi res: 04/10/2025 Start: 04-10-2024 End: 04-10-2025 DHEA DHEA Lab Routine PCOS (polycystic ovarian syndrome) Expected: 04/10/2024 (Approximate), Expires: 04/10/2025 [employer] [facility] [facility] [employer] [facility] Comment on above: Expected: 04/10/2024 (Approximate), Expi res: 04/10/2025 Start: 04-10-2024 End: 04-10-2025 US for US PELVIS-TRANSVAG IF INDICATED Imaging Routine PCOS (polycystic ovarian syndrome) Pelvic pain in female Expected: 04/10/2024 (Approximate), Expires: 04/10/2025 [facility] Comment on above: Expected: 04/10/2024 (Approximate), Expi res: 04/10/2025 Start: 04-10-2024 End: 04-10-2024 Patient encounter procedure 04/10/2024 9:10 AM EDT Office Visit [facility] [address] [place] [address] Caesar Broderick DO [address] [place] [address] Arrived [facility] Comment on above: Arrived Start: 03-13-2024 End: 03-13-2024 Patient encounter procedure 03/13/2024 11:00 AM EDT [facility] [address] [place] [address] James Fraire MD [address] [place] [id number] [facility] Start: 01-21-2024 Adult BMI Screening Adult BMI Screening [facility] Start: 01-21-2024 Tobacco Screening Tobacco Screening [facility] Start: 2014 DTaP/Tdap/Td Vaccines (1 - Tdap) DTaP/Tdap/Td Vaccines (1 - Tdap) [facility] Start: 2013 Screening for malignant neoplasm of cervix HPV/Cotest [facility] Start: 2011 DTaP,Tdap and Td Vaccines (1 - Tdap) DTaP,Tdap and Td Vaccines (1 - Tdap) [facility] Start: 2011 Hepatitis B Vaccines (1 of 3 - 19+ 3-dose series) Hepatitis B Vaccines (1 of 3 - 19+ 3-dose series) [facility] Start: 2010 Adult BMI Follow Up Plan Adult BMI Follow Up Plan [facility] Start: 2010 Hepatitis C screening Hepatitis C Screening [facility] Start: 2005 Varicella vaccination Varicella Vaccines (1 of 2 - 13+ 2-dose series) [facility] Start: 2004 Depression Screening Depression Screening [facility] Start: 1993 MMR Vaccines (1 of 1 - Standard series) MMR Vaccines (1 of 1 - Standard series) [facility] Start: 1992 HIV screening HIV Screening [facility] Start: 1992 Lipid panel Lipid Panel [facility] Start: 1992 Yearly Adult Physical Yearly Adult Physical [facility] Bacteria identified in Urine by Culture Urine culture Microbiology Routine Missed menses Ordered: 03/01/2025 [facility] Comment on above: Ordered: 03/01/2025 CBC W Auto Different ial panel - Blood CBC and differential Lab Routine PCOS (polycystic ovarian syndrome) Ordered: 04/10/2024 [facility] Comment on above: Ordered: 04/10/2024 CBC W Auto Different ial panel - Blood CBC and differential Lab Routine Missed menses , unspecified gestational age ([facility]) Ordered: 03/01/2025 [facility] Comment on above: Ordered: 03/01/2025 CHLAMYDIA TRACHOMATI S (GENITO/STI) CHLAMYDIA TRACHOMATIS (GENITO/STI) Lab Routine Screen for STD (sexually transmitted disease) Ordered: 04/25/2025 [facility] Comment on above: Ordered: 04/25/2025 End: 05-17-2026 Creatinine, urine, 24 hour Creatinine, urine, 24 hour Lab Routine Chronic hypertension affecting 20 weeks gestation of 1 Occurrences starting 05/17/2025 until 05/17/2026 [facility] Comment on above: 1 Occurrences starting 05/17/2025 until 05/17/2026 Cytology Cervical or vaginal smear or scraping study Pap Smear Pathology and Cytology Routine Well woman exam with routine gynecological exam Ordered: 12/10/2024 [facility] Work Phone: Comment on above: Ordered: 12/10/2024 DHEA-sulfate DHEA-sulfate Lab Routine PCOS (polycystic ovarian syndrome) Ordered: 04/10/2024 [facility] Comment on above: Ordered: 04/10/2024 Follicle stimulating hormone Follicle stimulating hormone Lab Routine PCOS (polycystic ovarian syndrome) Ordered: 04/10/2024 [facility] Comment on above: Ordered: 04/10/2024 hCG, quantitative, hCG, quantitative, Lab Routine PCOS (polycystic ovarian syndrome) Ordered: 04/10/2024 [facility] Work Phone: Comment on above: Ordered: 04/10/2024 Hemoglobin A1c/Hemoglobin.total in Blood Hemoglobin A1c Lab Routine Pelvic pain in female Abnormal uterine bleeding (AUB) Ordered: 04/10/2024 [facility] Comment on above: Ordered: 04/10/2024 Hemoglobin A1c/Hemoglobin.total in Blood Hemoglobin A1c Lab Routine Missed menses , unspecified gestational age ([facility]) Ordered: 03/01/2025 [facility] Comment on above: Ordered: 03/01/2025 Hepatitis B virus matt rface Ag [Presence] in Serum or Plasma by Immunoassay Hepatitis B surface antigen Lab Routine Missed menses , unspecified gestational age ([facility]) Ordered: 03/01/2025 [facility] Comment on above: Ordered: 03/01/2025 Hepatitis C virus Ab [Presence] in Serum or Plasma by Immunoassay Hepatitis C antibody Lab Routine Missed menses , unspecified gestational age ([facility]) Ordered: 03/01/2025 [facility] Comment on above: Ordered: 03/01/2025 HIV-1/HIV-2 antigen/antibody combination immunoassay HIV-1 and HIV-2 antibodies Lab Routine Missed menses , unspecified gestational age ([facility]) Ordered: 03/01/2025 [facility] Comment on above: Ordered: 03/01/2025 Human papilloma viru s DNA [Presence] in Unspecified specimen by Probe with amplification HPV DNA probe, amplified Microbiology Routine Well woman exam with routine gynecological exam Ordered: 12/10/2024 [facility] Comment on above: Ordered: 12/10/2024 Luteinizing hormone Luteinizing hormone Lab Routine PCOS (polycystic ovarian syndrome) Ordered: 04/10/2024 [facility] Comment on above: Ordered: 04/10/2024 End: 05-17-2026 Natriuretic peptide B [Mass/volume] in Blood B-type natriuretic peptide Lab Routine Chronic hypertension affecting 20 weeks gestation of 1 Occurrences starting 05/17/2025 until 05/17/2026 [facility] Work Phone: Comment on above: 1 Occurrences starting 05/17/2025 until 05/17/2026 Natriuretic peptide B [Mass/volume] in Blood B-type natriuretic peptide Lab Routine Chronic hypertension affecting 20 weeks gestation of 05/17/2025 9:54 AM EDT [facility] Neisseria gonorrhoea e DNA [Presence] in Unspecified specimen by PEACE with probe detection Neisseria gonorrhea DNA probe, direct Lab Routine Screen for STD (sexually transmitted disease) Ordered: 04/25/2025 [facility] Comment on above: Ordered: 04/25/2025 End: 05-17-2026 Protein, urine, 24 hour Protein, urine, 24 hour Lab Routine Chronic hypertension affecting 20 weeks gestation of 1 Occurrences starting 05/17/2025 until 05/17/2026 [facility] Comment on above: 1 Occurrences starting 05/17/2025 until 05/17/2026 Reagin Ab [Presence] in Serum by RPR RPR Lab Routine Missed menses , unspecified gestational age ([facility]) Ordered: 03/01/2025 [facility] Comment on above: Ordered: 03/01/2025 Rubella antibody, IgG Rubella an tibody, IgG Lab Routine Missed menses , unspecified gestational age ([facility]) Ordered: 03/01/2025 [facility] Comment on above: Ordered: 03/01/2025 SURESWAB(R) ADVANCED VAGINITIS PLUS, TMA SURESWAB(R) ADVANCED VAGINITIS PLUS, TMA Pathology and Cytology Routine Screen for STD (sexually transmitted disease) Ordered: 04/25/2025 [facility] Work Phone: Comment on above: Ordered: 04/25/2025 Thyrotropin [Units/v olume] in Serum or Plasma TSH Lab Routine PCOS (polycystic ovarian syndrome) Ordered: 04/10/2024 [facility] Comment on above: Ordered: 04/10/2024 Thyroxine (T4) free [Mass/volume] in Serum or Plasma T4, free Lab Routine PCOS (polycystic ovarian syndrome) Ordered: 04/10/2024 [facility] Comment on above: Ordered: 04/10/2024 Payers Date Payer Category Payer Self-pay 2022 Medicaid [id number] 2022 Medicaid [id number] 2. [id number] 1992 Unknown [id number] 2.16.8 [id number] 1992 Unknown [id number] 2.16.8 [id number] 1992 Unknown [id number] 2.16.8 [id number] 1992 Unknown [id number] 2.16.8 40.1.171466.3.579.2.1258 1992 Unknown [id number] 2.16.8 40.1.739207.3.579.2.9 1992 Unknown [id number] 2.16.84 0.1.210393.3.579.2.1258 1992 Unknown [id number] 2.16.84 0.1.300218.3.579.2.9 1992 Unknown [id number] 2.16.84 0.1.288451.3.579.2.1258 1992 Unknown [id number] 2.16.84 0.1.250803.3.579.2.9 1992 Unknown [id number] 2.16.84 0.1.872681.3.579.2.9 1992 Unknown [id number] 2.16.84 0.1.655608.3.579.2.9 1992 Unknown [id number] 2.16. [id number] 1992 Unknown [id number] 2.16. [id number] Unknown [id number] 2.16.8 [id number] Social History Date Type Detail Facility Start: 02-22-2024 End: 05-17-2025 Sex Assigned At [facility] [employer] Other Start: 1990 Sex Assigned At Female F [facility] Tobacco smoking status NHIS Tobacco smoking consumption unknown [facility] Start: 1990 Sex assigned at Not on file [facility] Start: 10-09-2022 End: 01-03-2025 Tobacco smoking status NHIS Never smoked tobacco [facility] Start: 10-09-2022 End: 01-03-2025 Tobacco use and exposure Smokeless tobacco non-user [facility] Start: 02-22-2024 End: 05-17-2025 Alcoholic beverage intake Ex-drinker (finding) [facility] Start: 02-22-2024 End: 05-17-2025 History of Social function [facility] Within the past 12 months we worried whether our food would run out before we got money to buy more. Never True [facility] Start: 09-30-2022 End: 12-20-2024 Sex Female (finding) [facility] Start: 01-03-2025 Alcoholic beverage intake Lifetime non-drinker (finding) [facility] Work Phone: Start: 12-24-2024 End: 01-03-2025 Exposure to SARS-CoV-2 (event) Not sure [facility] Start: 01-09-2025 [facility] Functional Status Date Assessment Result Facility 01-03-2025 Patient Health [facility] ionnaire 2 item (PHQ-2) [Reported] 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 Work Phone: Clinical Notes 10-11-2022 to 05-17-2025 Bethany Lundy LPN - 05/17/2025 9:00 AM Michael Cruz MD - 05/17/2025 9:00 AM Ricardo Lundy LPN - 05/17/2025 9:00 AM Ra Qiu NP - 04/25/2025 11:10 AM EDTPatient Instructions Note Date & Type Note Facility 05-17-2025 History of Present illness Narrative Headache/epigastric pain/blurry vision/swelling? Headaches are better with magnesium, still getting some that take a while to go away Cramping/contractions? No Spotting/vaginal bleeding? No Loss or gush of fluid like your water may have broken? No Do you have cats at home? No Do you change the litter box (reason: risk of toxoplasmosis)? N/A Genetic testing done this here or other office? No Have you been seen here at [facility] in a previous ? No Recent ER visits or hospitalizations? Yes, for slicing thumb on mandolin Bring blood sugar log or meter with you today? (Please bring them with you for every visit at [facility]) N/A Flu vaccine (Jun-October)? N/A Any concerns that you would like me to mention to the provider today? Hands get itchy with white spots Images from the original note were not included. REASON FOR CONSULTATION: CHTN HISTORY OF PRESENT ILLNESS: Chayo Ramires is a pleasant 35 y.o. at [...] mouth in the morning., Disp: , Rfl: 115/iron/folic acid ( 19 ORAL), Take [...] layer to the affected areas twice daily., Disp: 30 g, Rfl: 0 NIFEdipine XL (PROCARDIA XL) 30 mg 24 hr tablet, Take 1 tablet (30 mg total) by mouth in the morning and at bedtime., Disp: 60 tablet, Rfl: 2 omeprazole (PriLOSEC) 20 mg capsule, Take 1 capsule (20 mg total) by mouth in the morning. (Patient not taking: Reported on 04/29/2025), Disp: , Rfl: [...] lb 8 oz) LMP 12/26/2024 BMI 42.96 kg/m Vitals with Age-Percentiles Systolic Diastolic Pulse Respiration [...] or placental abruption. With mild hypertension, no underlying cardiac disease, and normal renal function, most women do well in . We recommend baseline preeclampsia labs, 24 hour urine protein, BNP. Baseline EKG in October 2024 with a normal limits. I explained that acceptable blood pressures in pregnancies with chronic hypertension < 140 systolic and <90 diastolic. Antihypertensive medication treatment with aim to maintain BPs <140/90 have demonstrated improvements in outcomes including development of severe preeclampsia, indicated delivery < 35 weeks, abruption, or , without increased risk of growth restriction or other serious maternal or adverse outcomes. Based on this data, ACOG recommends utilizing 140/90 as the threshold for initiation or titration of medical therapy for chronic hypertension in , rather than the previously recommended threshold of 160/110. Reference: PMID: [id number], 2021. Blood pressures do increase as progresses [...] the 81 mg dosing regimen for preeclampsia prevention as is recommended by the [place] [employer] Committee Opinion No. 743. Higher doses (150mg) have been studied, but utilized a screening strategy that is not widely performed in the [place] (serum analytes and uterine artery Doppler), limiting [...] the most common aneuploidies. A negative cell free DNA does not ensure an unaffected . A patient with a positive screen should be referred for genetic counseling and offered invasive diagnosis for confirmation of screen results. Limitations of cell free DNA screening were reviewed with the patient. Cell free DNA does not replace the accuracy and diagnostic precision of amniocentesis which remains an option for all women. Patient opted for cell free DNA screening. SUMMARY/RECOMMENDATION: Cell [...] recommend she be admitted to the hospital for evaluation of suspected superimposed preeclampsia. Incomplete level 2 anatomy ultrasound, attempt completion in 4 weeks through M serial growth ultrasounds every 4 weeks following completion of level 2 anatomy US, through primary OB testing recommendation- twice weekly NSTs with CHETAN [...] patient is in complete care of her research professor. Patient does have ultrasound and office visit scheduled with us. Thank you for allowing me to participate in the care of Chayo Ramires. If there any questions please do not hesitate to contact us. Sheila Cruz MD Maternal- Medicine [place] [id number] [facility] [address] [place] [id number] This document was created with [employer] technology. Though I make every effort to review the dictation as it is transcribed, on occasion the spoken word can be misinterpreted by the technology leading to inappropriate words, phrases, or sentences. This note is addressed to the requesting provider as a consultation for clinical guidance. Specific medical abbreviations are occasionally used and those are generally approved by the [place]?Board of?Obstetrics and?Gynecology?as well as?Rama tapia abbreviations. The above plan of care was based solely on the diagnoses for which a consultation was requested. ?More frequent testing may be indicated based on her other medical/obstetrical conditions. The management of other or medical conditions is beyond the scope of requested consultation and will continue to be followed by the primary research professor or primary care provider. Note to patient: The Century Cures Act makes medical notes like these available to patients in the interest of transparency. However, be advised this is a medical document. It is intended as peer to peer communication. It is written in medical language and may contain abbreviations or verbiage that are unfamiliar. It may appear blunt or direct. Medical documents are intended to carry relevant information, facts as evident, and the clinical opinion of the practitioner. Blood drawn for cell-free DNA testing per [facility] phlebotomy. Patient tolerated well. documented in this encounter [facility] 04-25-2025 History of Present illness Narrative Reason for Appointment: Patient ID: Chayo Ramires is a 35 y.o. female who presents for Routine Visit Patient presents today for Return OB appointment. MEDICATIONS Current Outpatient Medications Medication Instructions labetalol (NORMODYNE) 200 mg, Oral, 2 times daily magnesium oxide (MAG-OX) 400 mg, Oral, Daily sertraline (ZOLOFT) 50 mg, Every 24 hours ALLERGIES No Known Allergies PROBLEMS Active Ambulatory Problems Diagnosis Date Noted Fallopian tube disorder 07/30/2024 PCOS (polycystic ovarian syndrome) 07/30/2024 induced hypertension, antepartum ([facility]) 04/25/2025 Resolved Ambulatory Problems Diagnosis Date Noted No [...] Negative. Musculoskeletal: Negative. Skin: Negative. Neurological: Negative. Psychiatric/Behavioral: Negative. Hematological: Negative. Endocrine: Negative. Allergic/Immunologic: Negative. OBJECTIVE [...] nursing note reviewed. Exam conducted with a deoiling machine operator present. Vitals: Estimated body mass index is 42.88 kg/m as calculated from the following: Height as of 06/11/24: 5' 8 . Weight as of this encounter: 282 lb. BP: 138/82 Patient's last menstrual period was 12/26/2024. ASSESSMENT & PLAN ICD-10-CM 1. Screening, , for anatomic survey ([facility]) Z36.89 CANCELED: US OB 14+ weeks anatomy scan 2. Second trimester ([facility]) Z34.92 POCT urinalysis dipstick manually resulted 3. 17 weeks gestation of ([facility]) Z3A.17 4. Screen for STD (sexually transmitted disease) Z11.3 SURESWAB(R) ADVANCED VAGINITIS PLUS, TMA CHLAMYDIA TRACHOMATIS (GENITO/STI) Neisseria gonorrhea DNA probe, direct 5. Need for maternal serum alpha-protein (MSAFP) screening ([facility]) Z36.1 Alpha fetoprotein, maternal Alpha fetoprotein, maternal 6. induced hypertension, antepartum ([facility]) O13.9 7. Vitamin D deficiency E55.9 Return OB: Patient presents today for a routine obstetrics appointment. Patient is currently 17w1d . Patient states she is doing well but has complaints of being tired due to current . Patient has verbalizes frequent movement. labor precautions was discussed/given and patient was instructed to perform kick counts three times a day. Orders Placed This Encounter Procedures CHLAMYDIA TRACHOMATIS (GENITO/STI) Neisseria gonorrhea DNA probe, direct Alpha fetoprotein, maternal POCT urinalysis dipstick manually resulted Follow Up: Patient is to return to office in 4 week for routine OB appointment. Patient currently taking Labetalol 200mg BID and doing well without side effects. She has a scheduled MFM appointment on 05/13/25. Documented by Rosie Qiu NP on behalf of: Caesar Broderick DO documented in this encounter [facility] 04-11-2025 History of Present illness Narrative Reason [...] nursing note reviewed. Exam conducted with a deoiling machine operator present. Vitals: Estimated body mass index is 42.63 kg/m as calculated from the following: Height as of 06/11/24: 5' 8 . Weight as of this encounter: 280 lb 6.4 oz. BP: 140/86 Patient's last menstrual period was 12/26/2024. ASSESSMENT & PLAN ICD-10-CM 1. 15 weeks gestation of ([facility]) Z3A.15 POCT urinalysis dipstick manually resulted 2. Second trimester ([facility]) Z34.92 POCT urinalysis dipstick manually resulted 3. Acute nonintractable headache, unspecified headache type R51.9 4. BP check Z01.30 Patient presents today for a routine obstetrics appointment. Patient is currently 15w1d with a Estimated Date of Delivery: 10/02/25. Patient is having persistent elevated HTN. Discussed patient being referred to [facility] for management and recommendations for Gestational HTN. Patient is agreeable with referral. Patient to be started on Labetalol 200mg BID. Patient given labs and 24 hour urine to have obtained for baseline testing. Patient aware that once lab results are obtained then referral will be completed, so then all results can be sent to [facility] at onetime. Patient to return to clinic in 4 weeks for routine OB appointment. Patient to reach out to office with any concerns/questions. Documented by Karoline Casillas LPN on behalf of: Caesar Broderick DO documented in this encounter [facility] 03-28-2025 History of Present illness Narrative Reason [...] nursing note reviewed. Exam conducted with a deoiling machine operator present. Vitals: Estimated body mass index is 42.29 kg/m as calculated from the following: Height as of 24: 5' 8 . Weight as of this encounter: 278 lb 1.9 oz. BP: 138/80 Patient's last menstrual period was 12/26/2024. ASSESSMENT & PLAN ICD-10-CM 1. 13 weeks gestation of ([facility]) Z3A.13 POCT urinalysis dipstick manually resulted 2. Second trimester ([facility]) Z34.92 POCT urinalysis dipstick manually resulted magnesium [...] or undercooked meat, and stay away from [facility]. Patient has been consulted regarding any further [...] Caesar Broderick DO documented in this encounter [facility] 03-01-2025 History of Present illness Narrative Reason [...] dipstick manually resulted , unspecified gestational age ([facility]) - Type and screen; Future - ABO/Rh; Future - CBC and differential - Hemoglobin A1c - RPR - Rubella antibody, IgG - Hepatitis B surface antigen - Hepatitis C antibody - HIV-1 and HIV-2 antibodies - Rapid drug screen, urine; Future Encounter for supervision of normal first in first trimester ([facility]) - Rapid drug screen, urine; Future 9 weeks gestation of ([facility]) Nurse Note: Pt uncertain of doing the [employer] to one. Advised pt if she does to make sure both labs and [place] is done at the same time. PVU. Pt did state she had a Vit. D deficiency and has a h/o high blood pressure with G1. [employer] tech advised patient showed in dating [place] today [...] or undercooked meat, and stay away from [facility]. Patient has also been advised to not [...] Melanie Almaraz MA documented in this encounter [facility] 01-03-2025 History of Present illness Narrative Images from the original note were not included. Visit Type: In Person MD reviewed, Authorization obtained to share with partner. NEW FERTILITY PATIENT VISIT Referred by: Dr. 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 Tadalafil - 10mg as needed Injuries: No STD: No Please select all that are applicable: SA: Yes SA Results: Yes -Done at [facility] 2023- reports was told normal, no report [...] history on file. documented in this encounter [facility] Work Phone: 01-03-2025 Instructions Robbie Lopez [...] 01/03/2025 11:05 AM documented in this encounter [facility] Work Phone: 12-18-2024 History of Present [...] nursing note reviewed. Exam conducted with a deoiling machine operator present. Vitals: Estimated body mass index is [...] after allowing sufficient time to take affect. case picker and scissors used to remove affected area. Placed in formalin and sent to pathology. Post-procedure instructions given. Follow Up: as needed Documented by Kita rGiggs LPN on behalf of: Caesar Broderick DO documented in this encounter [facility] 12-10-2024 History of Present illness Narrative Reason [...] nursing note reviewed. Exam conducted with a deoiling machine operator present. Vitals: Estimated body mass index is [...] by Melanie Almaraz MA on behalf of: Caesar Broderick DO documented in this encounter [facility] 11-12-2024 History of Present illness Narrative Reason [...] Caesar Broderick DO documented in this encounter [facility] 07-23-2024 History of Present illness Narrative Reason [...] nursing note reviewed. Exam conducted with a deoiling machine operator present. Vitals: Estimated body mass index is [...] by Kita Griggs LPN on behalf of: Caesar Broderick DO documented in this encounter [facility] 06-11-2024 History of Present illness Narrative Reason [...] nursing note reviewed. Exam conducted with a deoiling machine operator present. Vitals: Estimated body mass index is [...] Caesar Broderick DO documented in this encounter [facility] 05-03-2024 History of Present illness Narrative Reason for Appointment: Patient ID: Chayo Ramires is a 34 y.o. female who presents for Pre-op Visit Patient presents today for Pre Op appointment. Patient is scheduled to undergo Diagnostic Laparoscopy, possible FLAKITO, possible FOE, possible BSO, possible Chromopertubation on 06/01/[address] Broderick at [facility]. MEDICATIONS Current Outpatient Medications Medication Instructions [...] nursing note reviewed. Exam conducted with a deoiling machine operator present. Vitals: There is no height or [...] reviewed, and patient is to proceed to [facility] OR. Follow Up: Patient is to follow up between 1-2 weeks post operative to assess proper healing and recovery from procedure. Documented by Karoline Casillas LPN on behalf of: Caesar Broderick DO documented in this encounter [facility] 04-10-2024 History of Present illness Narrative Reason [...] nursing note reviewed. Exam conducted with a deoiling machine operator present. Vitals: There is no height or weight on file to calculate BMI. BP: 130/78 Patient's last menstrual period was 03/30/2024. ASSESSMENT & PLAN ICD-10-CM 1. Encounter for fertility planning Z31.89 2. PCOS (polycystic ovarian syndrome) E28.2 3. Pelvic pain in female R10.2 Patient presents today to discuss fertility. Pt having pelvic pain thinking endometriosis- discussed dx lap with isiah FRAGA, isiah LAGUNA, isiah chromopertubation. Pt to start metformin, rx [...] by Kita Griggs LPN on behalf of: Caesar Broderick DO documented in this encounter [facility] 03-13-2024 History of Present illness Narrative Chayo [...] Chief Complaint Patient presents with New Patient RIM BUSTER PALPITATIONS SCHED W/ [facility] LABS [facility] History of Present [...] file. PCP: MELISSA Noyola Referring Physician: Sabiha Aviles APRN-THEA [address] [place] [address] documented in this encounter [facility] 03-12-2024 Miscellaneous Notes Left message for patient to remind them to bring their most current medication list with them to their appointment. documented in this encounter [facility] 03-12-2024 Telephone encounter Note Left message for patient to remind them to bring their most current medication list with them to their appointment. [facility] 10-11-2022 Evaluation note Encounter Date Diagnosis [...] the onset of your symptoms of COVID Vyyo Other Chinb complaint+Reason for visit Narrative* Chief Complaint sinus pressure, coug h Reason for Visit Contact with and (matt spected) exposure to covid-19 Sore throat Sinusitis [facility] Work Phone: Evaluation note* Diagnosis Onset Date Resolution Status Contact with and (suspected) exposure to covid-19 acute Sore throat acute Sinusitis noneactive [facility] Work Phone: Evaluation note* Diagnosis Postoperative visit S/P laparoscopic procedure Other postprocedural status documented in this encounter [facility] HealthcareEvaluation note* Diagnosis PCOS (polycystic ovarian syndrome) Polycystic ovaries Encounter for fertility planning documented in this encounter [facility] HealthcareEvaluation note* Diagnosis Pre-op examination Pelvic pain in female Unspecified symptom associated with female genital organs Fallopian tube disorder Unspecified noninflammatory disorder of ovary, fallopian tube, and broad ligament documented in this encounter [facility] HealthcareEvaluation note* Diagnosis Encounter for fertility planning PCOS (polycystic ovarian syndrome) Polycystic ovaries Pelvic pain in female Unspecified symptom associated with female genital organs Abnormal uterine bleeding (AUB) documented in this encounter [facility] HealthcareEvaluation note* Diagnosis Heart palpitations- Primary Palpitations documented in this encounter [facility] System[facility]* Diagnosis Encounter for fertility planning Acute cystitis without hematuria PCOS (polycystic ovarian syndrome) Polycystic ovaries Fallopian tube disorder Unspecified noninflammatory disorder of ovary, fallopian tube, and broad ligament documented in this encounter [facility] HealthcareEvaluation note* Diagnosis Well woman exam with routine gynecological exam Routine gynecological examination documented in this encounter [facility] HealthcareEvaluation note* Diagnosis Skin mole documented in this encounter [facility] HealthcareEvaluation noteNo [facility]* Diagnosis Encounter for preprocedural laboratory examination- Primary Abnormal uterine bleeding Unspecified disorder of menstruation and other abnormal bleeding from female genital tract documented in this encounter [facility] Work Phone: Evaluation note* Diagnosis Amenorrhea Absence of menstruation Missed menses , unspecified gestational age ([facility]) Encounter for supervision of normal first in first trimester ([facility]) 9 weeks gestation of ([facility]) Vitamin D deficiency History of hypertension Personal history of other diseases of circulatory system documented [facility] encounter [facility]* Diagnosis 13 weeks gestation of ([facility]) Second trimester ([facility]) state, incidental Acute nonintractable headache, unspecified headache type documented in this encounter [facility]* Diagnosis 15 weeks gestation of ([facility]) Second trimester ([facility]) state, incidental Acute nonintractable headache, unspecified headache type BP check Screening for hypertension Gestational hypertension, antepartum ([facility]) induced hypertension, antepartum ([facility]) Transient hypertension of , antepartum documented in [facility] encounter [facility]* Diagnosis Hypertension affecting in second trimester- Primary [facility] Diagnosis Screening, , for anatomic survey ([facility]) Encounter for anatomic survey Second trimester ([facility]) state, incidental 17 weeks gestation of ([facility]) Screen for STD (sexually transmitted disease) Screening examination for venereal disease Need for maternal serum alpha-protein (MSAFP) screening ([facility]) induced hypertension, antepartum ([facility]) Transient hypertension of , antepartum Vitamin D deficiency documented [facility]* Diagnosis Chronic 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 Severe obesity due to excess calories affecting , antepartum ([facility]) 20 weeks gestation of [facility] 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 Chronic hypertension affecting Severe obesity due to excess calories affecting , antepartum ([facility]) Hypertension affecting in second trimester documented [facility] filedocumented in this encounter [facility] filedocumented in this encounter [facility] on filedocumented in this encounter [facility] on filedocumented in this encounter [facility]Not on filedocumented in this encounter [facility] SystemInstructionsNot on filedocumented in this encounter [facility] SystemInstructionsNot on filedocumented in this encounter [facility] Family History Relationship Condition Age at [...] Reason Comments Infertility Reason Comments New Patient RIM BUSTER PALPITATIONS SCHE D W/ PT LABS [facility] PCP Specialty Diagnoses / Procedures Referred By Radha t Referred To Contact Cardiology Diagnoses Heart palpitations Sabiha Aviles, DEPUTY MANAGER-COMMERCIAL FIELD INSPECTOR [address] [place] [id number] [facility] [address] [id number] Referral ID Status Reason Start Date Expiration Date Visits Requested Visits Authorized [id number] Pending Review Specialty Services Required 01/25/2024 01/24/2025 1 1 Reason Comments Follow-up Reason Comments Gynecologic Exam Reason Comments Mole removal Reason Comments Infertility Reason Comments Amenorrhea Reason Comments Routine Visit Reason Comments gHTN PCOS Care Teams (unrecognized sec tion and content) Team Status: Active Member Role Status Dates PHYSICIAN NO FAMILY Primary Care Provider Active Team Status: Inactive Member Role Status Dates PHYSICIAN NO FAMILY Primary Care Provider Active Start: November 24, 2023 End: November 24, 2023 FABI Farias Attending Provider Active S tart: November 24, 2023 End: November 24, 2023 System Manager Relationship Specialty Start Date End Date Judy Caal PCP - [facility] [place] [facility] 02/20/24 System Manager Relationship Specialty Start Date End Date Judy Caal PCP - [facility] [place] [facility] 02/20/24 System Manager Relationship Specialty Start Date End Date Kromer, Judy PCP - [facility] [place] [facility] 02/20/24 System Manager Relationship Specialty Start Date End Date Kromer, Judy PCP - [facility] [place] [facility] 02/20/24 System Manager Relationship Specialty Start Date End Date Kromer, Judy PCP - [facility] [place] [facility] 02/20/24 System Manager Relationship Specialty Start Date End Date Kromer, Judy PCP - [facility] [place] [facility] 02/20/24 System Manager Relationship Specialty Start Date End Date Kromer, Judy PCP - [facility] [place] [facility] 02/20/24 System Manager Relationship Specialty Start Date End Date [facility] [address] [facility] [place] [place] PCP - General Family Medicine 11/12/22 System Manager Relationship Specialty Start Date End Date [facility] [address] [facility] [place] [place] PCP - General Family Medicine 11/12/22 System Manager Relationship Specialty Start Date End Date [facility] [address] [facility] [place] [place] PCP - General Family Medicine 11/12/22 System Manager Relationship Specialty Start Date End Date Kromer, Judy PCP - [facility] [place] [facility] 02/20/24 System Manager Relationship Specialty Start Date End Date Kromer, Judy PCP - [facility] [place] [facility] 02/20/24 System Manager Relationship Specialty Start Date End Date Kromer, Judy PCP - [facility] [place] [facility] 02/20/24 System Manager Relationship Specialty Start Date End Date Kromer, Judy PCP - [facility] [place] [facility] 02/20/24 Team Status: Inactive Member Role Status Dates Caesar Broderick DO Attending Provider Active Start : December 18, 2024 End: December 18, 2024 System Manager Relationship Specialty Start Date End Date June Trinidad LPN Licensed Practical Nurse Reproductive Endocrinology and Infertility 01/01/25 System Manager Relationship Specialty Start Date End Date Judy Caal PCP - [facility] [place] [facility] 02/20/24 System Manager Relationship Specialty Start Date End Date Judy Caal PCP - [facility] [place] [facility] 02/20/24 System Manager Relationship Specialty Start Date End Date Judy Caal PCP - [facility] [place] [facility] 02/20/24 System Manager Relationship Specialty Start Date End Date Judy Caal PCP - [facility] [place] [facility] 02/20/24 System Manager Relationship Specialty Start Date End Date Services, [facility] [address] [place] PCP - General Family Medicine 11/03/24 System Manager Relationship Specialty Start Date End Date [facility] License Of [facility] [address] [place] PCP - General Family Medicine 11/03/24 System Manager Relationship Specialty Start Date End Date Judy Caal PCP - [facility] [place] [facility] 02/20/24 System Manager Relationship Specialty Start Date End Date [facility] License Of [facility] [address] [place] PCP - General Family Medicine 11/03/24 System Manager Relationship Specialty Start Date End Date [facility] License Of [facility] [address] [place], [place] PCP - General Family Medicine 11/03/24 Goals (unrecognized section and content) Goals may be documented in a n alternate section INFORMATION SOURCE (unrecogn ized section and content) DATE CREATED AUTHOR 12/29/2024 [facility] DATE CREATED AUTHOR AUTHOR'S ORGANIZ ATION 01/07/2025 [facility] DATE CREATED AUTHOR AUTHOR'S ORGANIZ ATION 04/27/2025 [facility] DATE CREATED AUTHOR AUTHOR'S ORGANIZ ATION 05/01/2025 [facility] FOR RECORDS PERTAINING TO PATIENTS WHO ARE [...] BE BASED ON THE PRIMARY CLINICAL RECORDS. [facility]. provides no warranty or guarantee of the accuracy or completeness of information in this document.
== END 2025-05-23 14:07 | disposition home or self-care (01) ==
LOC: LAB 14:08
PROVIDERS: Visit Provider Obstetrics & Gynecology
DX: Z34.92 Encounter for supervision of normal pregnancy, unspecified, second trimester (principal); Z36.1 Encounter for antenatal screening for raised alphafetoprotein level
CPT/HCPCS: 36415; 82105

== ENCOUNTER 2025-05-26 10:02 | Outpatient (REF) | payer MEDICAID, SELFPAY ==
--- OUTSIDE RECORDS SUMMARY | 2025-03-05 09:15 | XMS_ITS ---
Author Organization [facility] vices Address [address] [place], [place] [phone] Care Team Providers Care Patient Care Representative Name Role Phone Sabiha Aviles Primary Care Provider [phone] REASON FOR VISIT 3m depression, anxiety Social History Sex Assigned At : Social History Observation Description Sex Assigned At Female Encounters Encounter Location Date Provider Diagnosis East [address] [place] [phone] 03/05 Sabiha Aviles Plan Of Treatment Next Appt Details Provider Name:Judy Yepez , 08/20/2025 01:15:00 PM, [address] [place], [place], [phone], Progress Notes * Chayo RAMIRESDOB: 2 (35 yo F)Acc No.[id number]:03/05/2025 Medical Note Patient: Trent VALLES Chayo Lockwood Provider: Jill Aviles :1990 A ge:34 Y S ex:Female Date:03/05/2025 Address:[address] [place] [address], [address] [place], [place] [phone] Subjective: * Chief Complaints: * 1 . 3m depression, anxiety. * Medical History: Objective: * Vitals: Assessment: Plan: * Treatment: * Billing Information: * Visit Code: * Procedure Codes: * Electronic signature of THEA Turk on 05/26/2025 at 10:04 AM EDT Sign off status: Pending * Provider: Jill Aviles Date: 0 03/05/2025 Generated for Carol grewal/Jeannie/eTransmitting on: 1 10:04 AM EDT
--- OUTSIDE RECORDS SUMMARY | 2025-03-05 09:15 | XMS_ITS ---
Author Organization [facility] vices Address [address] [place], [place] [phone] Care Team Providers Care Roll Wrapper Name Role Phone Sabiha Aviles Primary Care Provider REASON FOR VISIT 3m depression, anxiety Social History Sex Assigned At : Social History Observation Description Sex Assigned At Female Encounters Encounter Location Date Provider Diagnosis East [address] [place] [phone] 03/05 Sabiha Aviles Plan Of Treatment Next Appt Details Provider Name:Judy Yepez , 08/20/2025 01:15:00 PM, [address] [place], [place], [phone], Progress Notes * Chayo RAMIRESDOB: 2 (35 yo F)Acc No.[id number]:03/05/2025 Medical Note Patient: Trent VALLES Chayo Lockwood Provider: Jill Aviles :1990 A ge:34 Y S ex:Female Date:03/05/2025 Address:[address] [place] [address], [address] [place], [place] [phone] Subjective: * Chief Complaints: * 1 . 3m depression, anxiety. * Medical History: Objective: * Vitals: Assessment: Plan: * Treatment: * Billing Information: * Visit Code: * Procedure Codes: * Electronic signature of THEA Turk on 05/23/2025 at 02:13 PM EDT Sign off status: Pending * Provider: Jill Aviles Date: 0 03/05/2025 Generated for Carol grewal/Jeannie/eTransmitting on: 1 02:13 PM EDT
--- OUTSIDE RECORDS SUMMARY | 2025-05-17 07:12 | XMS_ITS | Encounter Summary ---
Author Organization [facility] tem Address [id number] [address] [place] [address] Care Team Providers Care Biophysics Teacher Name Role Phone Services, [facility] Primary Care Provider Reason for Referral * Diagnostic Imaging (Routine) - Pending Review Specialty Diagnoses / Procedures Referred By Contac t Referred To Contact Maternal and Medicine Diagnoses Hypertension affecting in second trimester Procedures US MFM with or without consult Israel Broderick DO [address] [place] [address] Phone: tel: fax: Maternal- Medicine at [address] [address] Phone: tel: fax: Referral ID Status Reason Start Date Expiration Date V isits Requested Visits Authorized [id number] Pending Review 04/19/2025 04/19/2026 1 1 Reason for Visit * Diagnostic Imaging (Routine) - Pending Review Specialty Diagnoses / Procedures Referred By Contac t Referred To Contact Maternal and Medicine Diagnoses Hypertension affecting in second trimester Procedures US MFM with or without consult Israel Broderick DO [address] [place] [address] Phone: tel: fax: Maternal- Medicine at [address] [place] [address] Phone: tel: fax: Referral ID Status Reason Start Date Expiration Date V isits Requested Visits Authorized [id number] Pending Review 04/19/2025 04/19/2026 1 1 Encounter Details Date Type Department Care Team (Latest Contact Info) Description 05/17/2025 7:12 AM EDT - 05/17/2025 11:59 PM EDT Hospital Encounter [facility] US Imaging [address] [place] [address] Hypertension affecting in second trimester Discharge Disposition: Home Social History Tobacco Use Types Packs/Day Years Used Date Smoking Tobacco: Never Smokeless Tobacco: Never Alcohol Use Standard Drinks/Week Comments Not Currently 0 (1 standard drink = 0.6 oz pur e alcohol) Hunger Screening Answer Date Recorded Within the past 12 months we worried whether our food would run out before we got money to buy more. Never True 05/17/2025 Within the past 12 months th e food we bought just didn't last and we didn't have money to get more. Never True 05/17/2025 Estimated Date of Delivery Comme nts Yes 10/02/2025 Based on last me nstrual period of 12/26/2024 Sex and Gender Information Value Date Recorded Sex Assigned at Not on file Legal Sex Female 2:11 PM EST Gender Identity Not on file Sexual Orientation Not on file documented as of this encounter Medications at Time of Discharge aspirin 81 mg Take 1 tablet (81 mg total) by mouth in the morning. cholecalciferol 10 mcg (400 unit) tablet 2 tablets (800 Units total) in the morning. 01/26/2024 clobetasoL (TEMOVATE) 0.05 % ointmentIndication s:Acute palmoplantar pustular psoriasis,Chronic hypertension affecting ,20 weeks gestation of Apply a thin layer to the affected areas twice daily. 30 g 05/17/2025 magnesium oxide (MAGOX) 400 mg tablet Take 1 tablet (400 mg total) by mouth in the morning. NIFEdipine XL (PROCARDIA XL) 30 mg 24 hr tabletIndications: Chronic hypertension affecting ,20 weeks gestation of Take 1 tablet (30 mg total) by mouth in the morning and at bedtime. 60 tablet 2 05/17/2025 omeprazole (PriLOSEC) 20 mg capsule Take 1 capsule (20 mg total) by mouth in the morning. 115/iron/folic acid ( 19 ORAL) Take 1 tablet by mouth in the morning. sertraline (ZOLOFT) 25 mg tablet Take 2 tablets (50 mg total) by mouth before bedtime. sertraline (ZOLOFT) 25 mg tablet Take 2 tablets (50 mg total) by mouth before bedtime. 11/06/2024 documented as of this encounter Plan of Treatment Upcoming Encounters Date Type Department Care Team (Late st Contact Info) Description 06/18/2025 8:00 AM EDT Appointment [facility] - Ultrasound [address] [place] [address] 06/18/2025 2:00 PM EDT Telemedicine Maternal- Medicine at [facility] [address] [place] [address] Sheila Cruz MD [address] [facility] 1st [place] [address] documented as of this encounter Procedures Procedure Name Priority Date/Time Associated Diagnosis Comments [facility] COMPREHENSIVE ANATOMIC SURVEY Routine 05/17/2025 9:10 AM EDT Hypertension affecting in second trimester documented in this encounter Results * [facility] COMPRE[facility]ATOMIC SURVEY (05/17/2025 9:10 AM EDT) Anatomical Region Laterality Modality OB-WAREHOUSE [employer] Ultrasound 05/17/2025 7:47 AM EDT Narrative 05/17/2025 4:39 PM EDT NAME: PAULA HUGHES : 1990 SEX: F Accession Number: [id number] ORDERING PHYSICIAN: ISRAEL BRODERICK REFERRING PHYSICIAN: ISRAEL BRODERICK Coding ----- --------- Procedures [id number]: Ultrasound, uterus, real time with image documentation, and maternal evaluation plus detailed anatomic examination, transabdominal approach;single or first gestation [id number]: Ultrasound, uterus, real time with image documentation, transvaginal Indication ----- --------- Screening for Anatomic Survey , Screening for cervical length , Anxiety , Depression , Gestational hypertension without significant proteinuria , Obesity in , History of gestational hypertension. History ----- --------- OB History 2. Para 1 [id number] Maternal Assessment ----- --------- Physical Exam Height 173 cm, 5 ft 8 in. Weight 128 kg, 282 lb. Initial weight 124 kg, 274 lb. BMI 42.88 kg/m . Initial BMI 41.66 kg/m . Weight gain 4 kg, 8 lb Method ----- --------- Transabdominal and transvaginal ultrasound examination. View: Suboptimal view: limited by position and maternal body habitus . Images of optimal diagnostic quality could not be obtained. ----- --------- Kumar . Number of fetuses: 1 Dating ----- --------- LMP on: 12/26/2024 GA by LMP 20 w + 2 d PETROS by LMP: 10/02/2025 Previous Ultrasound on: 03/01/2025 Type of prior assessment: CRL U/S measurement at prior assessment date 23.0 mm GA by previous U/S 20 w + 0 d PETROS by previous Ultrasound: 10/04/2025 Ultrasound examination on: 05/17/2025 GA by U/S based upon: AC, BPD, Femur, HC GA by U/S 20 w + 5 d PETROS by U/S: 09/29/2025 Assigned: based on the LMP, selected on 05/17/2025 Assigned GA (weeks days) 20 w + 2 d Assigned PETROS: 10/02/2025 General Evaluation ----- --------- Cardiac activity Present. FHR 155 bpm. Presentation: cephalic Placenta: Placental site: anterior, away from cervical os Umbilical cord: Cord vessels: 3 vessel cord. Insertion site: normal insertion Amniotic fluid: Amount of AF: normal amount. MVP 6.6 cm Biometry ----- --------- Standard BPD 50.3 mm 21w 2d 84% Hadlock OFD 62.7 mm 21w 3d 86% Gavino HC 181.4 mm 20w 4d 54% Hadlock AC 154.7 mm 20w 5d 56% Hadlock Femur 33.2 mm 20w 3d 46% Hadlock Humerus 31.5 mm 20w 4d 60% Gavino HC / AC 1.17 56% Hadlock EFW 362 g 60% Hadlock EFW (lb) 0 lb EFW (oz) 13 oz EFW by: Hadlock ([id number]) Extended Tibia 23.0 mm 18w 1d 2% Gavino Nasal bone 5.4 mm 6% Sonek Head / Face / Neck Cephalic index 0.80 66% Nicolaides Nasal bone: present Extremities / Bony Struc FL / BPD 0.66 12% Hadlock FL / HC 0.18 21% Hadlock FL / AC 0.21 37% Hadlock Other Structures FHR 155 bpm Anatomy ----- --------- The following structures appear normal: Head/Neck: Cranium. Parenchyma. Face: Nasal bone. Heart/Thorax: RVOT view. LVOT view. 3-vessel view. 3-wcxfis-wlelheu view. Situs. Bicaval view. Cardiac position. Cardiac axis. Cardiac size. Cardiac rhythm. Right lung. Left lung. Abdomen: Abdom. wall. Cord insertion. Stomach. Kidneys. Bladder. Small bowel. Large bowel. Genitals. Extremities/Skeleton: Left upper arm. Left forearm. Left hand. Right upper leg. Right lower leg. Right foot. Left upper leg. Left lower leg. The following structures could not be adequately visualized: Head / Neck Cavum septi pellucidi. Neck. Face Profile. Maxilla. Mandible. Heart / Thorax 4-chamber view. Interventricular septum. Diaphragm. Spine: Cervical spine. Thoracic spine. Lumbar spine. Sacral spine. Extremities / Right upper arm. Right forearm. Left foot. Skeleton The following structures could not be examined: Head / Neck Lateral ventricles. Choroid plexus. Midline falx. Cerebellum. Cisterna magna. Vermis. Nuchal fold. Face Lips. Nose. Orbits. Heart / Thorax Aortic arch view. Ductal arch view. Great vessels. Abdomen Right renal artery. Left renal artery. Extremities / Right hand. Skeleton Maternal Structures ----- --------- Uterus Visualized Cervix Visualized Approach - Transvaginal: Cervical length 3.06 cm Right Ovary Not visualized Left Ovary Visualized Size 4.7 cm x 3.8 cm x 2.4 cm. Vol 21.6 cm Cyst(s) Simple cyst. Size 23 mm x 26 mm x 20 mm. Mean 23.0 mm. Vol 6.262 cm Cul de Sac Visualized. No free fluid visualized Impression ----- --------- Single live intrauterine consistent with 20w 2d with an PETROS of 10/02/2025. Normal growth. EFW measures at the 60%, AC measures at the 56%. Transvaginal cervical length measures 3.06 cm. Amniotic fluid MVP measures 6.6 cm. Maternal left ovarian cyst noted. Recommendations ----- --------- Please see [facility] documentation from today. The patient is scheduled in four to six week(s) to complete anatomic survey. Subsequent follow up or other follow up as clinically determined by primary OB provider unless otherwise specified by [facility]. Results forwarded to ordering provider so they can follow up with the patient as necessary. Procedure Note Sheila Cruz MD - 05/17/2025 NAME: PAULA HUGHES : 1990 SEX: F Accession Number: [id number] ORDERING PHYSICIAN: ISRAEL BRODERICK REFERRING PHYSICIAN: ISRAEL BRODERICK Coding ----- --------- Procedures [id number]: Ultrasound, uterus, real time with imagedocumentation, and maternal evaluation plus detailed anatomic examination, transabdominalapproach;single or first gestation [id number]: Ultrasound, uterus, real time with imagedocumentation, transvaginal Indication ----- --------- Screening for Anatomic Survey , Screening for cervical length , Anxiety ,Depression , Gestational hypertension without significant proteinuria , Obesity in , History of gestationalhypertension. History ----- --------- OB History 2. Para 1 [id number] Maternal Assessment ----- --------- Physical Exam Height 173 cm, 5 ft 8 in. Weight 128 kg, 282 lb. Initialweight 124 kg, 274 lb. BMI 42.88 kg/m . Initial BMI 41.66 kg/m . Weight gain 4 kg, 8 lb Method ----- --------- Transabdominal and transvaginal ultrasound examination. View: Suboptimalview: limited by position and maternal body habitus . Images of optimal diagnostic quality could not be obtained. ----- --------- Kumar . Number of fetuses: 1 Dating ----- --------- LMP on: 12/26/2024 GA by LMP 20 w + 2 d PETROS by LMP: 10/02/2025 Previous Ultrasound on: 03/01/2025 Type of prior assessment: CRL U/S measurement at prior assessment date 23.0 mm GA by previous U/S 20 w + 0 d PETROS by previous Ultrasound: 10/04/2025 Ultrasound examination on: 05/17/2025 GA by U/S based upon: AC, BPD, Femur, HC GA by U/S 20 w + 5 d PETROS by U/S: 09/29/2025 Assigned: based on the LMP, selected on 05/17/2025 Assigned GA (weeks days) 20 w + 2 d Assigned PETROS: 10/02/2025 General Evaluation ----- --------- Cardiac activity Present. FHR 155 bpm. Presentation: cephalic Placenta: Placental site: anterior, away from cervical os Umbilical cord: Cord vessels: 3 vessel cord. Insertion site: normalinsertion Amniotic fluid: Amount of AF: normal amount. MVP 6.6 cm Biometry ----- --------- Standard BPD 50.3 mm 21w 2d 84% Hadlock OFD 62.7 mm 21w 3d 86% Gavino HC 181.4 mm 20w 4d 54% Hadlock AC 154.7 mm 20w 5d 56% Hadlock Femur 33.2 mm 20w 3d 46% Hadlock Humerus 31.5 mm 20w 4d 60% Gavino HC / AC 1.17 56% Hadlock EFW 362 g 60% Hadlock EFW (lb) 0 lb EFW (oz) 13 oz EFW by: Hadlock ([id number]) Extended Tibia 23.0 mm 18w 1d 2% Gavino Nasal bone 5.4 mm 6% Sonek Head / Face / Neck Cephalic index 0.80 66% Nicolaides Nasal bone: present Extremities / Bony Struc FL / BPD 0.66 12% Hadlock FL / HC 0.18 21% Hadlock FL / AC 0.21 37% Hadlock Other Structures FHR 155 bpm Anatomy ----- --------- The following structures appear normal: Head/Neck: Cranium. Parenchyma. Face: Nasal bone. Heart/Thorax: RVOT view. LVOT view. 3-vessel view. 6-wdhwgk-ljistts view.Situs. Bicaval view. Cardiac position. Cardiac axis. Cardiac size. Cardiac rhythm. Right lung. Left lung. Abdomen: Abdom. wall. Cord insertion. Stomach. Kidneys. Bladder. Smallbowel. Large bowel. Genitals. Extremities/Skeleton: Left upper arm. Left forearm. Left hand. Right upperleg. Right lower leg. Right foot. Left upper leg. Left lower leg. The following structures could not be adequately visualized: Head / Neck Cavum septi pellucidi. Neck. Face Profile. Maxilla. Mandible. Heart / Thorax 4-chamber view. Interventricular septum. Diaphragm. Spine: Cervical spine. Thoracic spine. Lumbar spine. Sacral spine. Extremities / Right upper arm. Right forearm. Left foot. Skeleton The following structures could not be examined: Head / Neck Lateral ventricles. Choroid plexus. Midline falx.Cerebellum. Cisterna magna. Vermis. Nuchal fold. Face Lips. Nose. Orbits. Heart / Thorax Aortic arch view. Ductal arch view. Great vessels. Abdomen Right renal artery. Left renal artery. Extremities / Right hand. Skeleton Maternal Structures ----- --------- Uterus Visualized Cervix Visualized Approach - Transvaginal: Cervical length 3.06 cm Right Ovary Not visualized Left Ovary Visualized Size 4.7 cm x 3.8 cm x 2.4 cm. Vol 21.6 cm Cyst(s) Simple cyst. Size 23 mm x 26 mm x 20 mm. Mean 23.0 mm. Vol6.262 cm Cul de Sac Visualized. No free fluid visualized Impression ----- --------- Single live intrauterine consistent with 20w 2d with an PETROS of10/02/2025. Normal growth. EFW measures at the 60%, AC measures at the 56%. Transvaginal cervical length measures 3.06 cm. Amniotic fluid MVP measures 6.6 cm. Maternal left ovarian cyst noted. Recommendations ----- --------- Please see [facility] documentation from today. The patient is scheduled in four to six week(s) to complete anatomicsurvey. Subsequent follow up or other follow up as clinically determined byprimary OB provider unless otherwise specified by [facility]. Results forwarded to ordering provider so they can follow up with thepatient as necessary. us Israel Broderick DO [facility] US ORDERABLES Final Result documented in this encounter Visit Diagnoses Diagnosis Hypertension affecting in second trimester documented in this encounter Care Teams Biophysics Teacher Relationship Specialty Start Date End Date [address] PCP - General Family Medicine 11/03/24 documented as of this encounter
--- OUTSIDE RECORDS SUMMARY | 2025-05-17 07:12 | XMS_ITS | Encounter Summary ---
Author Organization [facility] [employer] [facility] tem Address [facility] [id number] [address] [place] [address] Care Team Providers Care Imaging Center Manager Name Role Phone Services, [facility] Primary Care Provider Reason for Referral * Diagnostic Imaging (Routine) - Pending Review Specialty Diagnoses / Procedures Referred By Contac t Referred To Contact Maternal and Medicine Diagnoses Hypertension affecting in second trimester Procedures US MFM with or without consult Israel Broderick DO [address] [place] [address] Phone: tel: fax: Maternal- Medicine at [address] [address] Phone: tel: fax: Referral ID Status Reason Start Date Expiration Date V isits Requested Visits Authorized [id number] Pending Review 04/19/2025 04/19/2026 1 1 Reason for Visit * Diagnostic Imaging (Routine) - Pending Review Specialty Diagnoses / Procedures Referred By Contac t Referred To Contact Maternal and Medicine Diagnoses Hypertension affecting in second trimester Procedures US MFM with or without consult Israel Broderick DO [address] [place] [address] Phone: tel: fax: Maternal- Medicine at [address] [place] [address] Phone: tel: fax: Referral ID Status Reason Start Date Expiration Date V isits Requested Visits Authorized [id number] Pending Review 04/19/2025 04/19/2026 1 1 Encounter Details Date Type Department Care Team (Latest Contact Info) Description 05/17/2025 7:12 AM EDT - 05/17/2025 11:59 PM EDT Hospital Encounter [facility] US Imaging [address] [place] [address] Hypertension affecting in second trimester [...] Info) Description 06/18/2025 8:00 AM EDT Appointment [facility] - Ultrasound [address] [place] [address] 06/18/2025 2:00 PM EDT Telemedicine Maternal- Medicine at [facility] [address] [place] [address] Sheila Cruz MD [address] [facility] 1st [place] [address] documented as of this encounter Procedures Procedure Name Priority Date/Time Associated Diagnosis Comments [facility] COMPREHENSIVE ANATOMIC SURVEY Routine 05/17/2025 9:10 AM EDT Hypertension affecting in second trimester documented in this encounter Results * [facility] COMPREHENSIVE ANATOMIC SURVEY (05/17/2025 9:10 AM EDT) Anatomical Region Laterality Modality OB-HOUSE PIPING INSPECTOR Ultrasound 05/17/2025 7:47 AM EDT Narrative 05/17/2025 4:39 PM EDT NAME: PAULA HUGHES : 1990 SEX: F Accession Number: [id number] ORDERING PHYSICIAN: ISRAEL BRODERICK REFERRING PHYSICIAN: ISRAEL BRODERICK Coding ----- --------- Procedures [id number]: Ultrasound, uterus, real time with image documentation, and maternal evaluation plus detailed anatomic examination, transabdominal approach;single or first gestation [id number]: Ultrasound, uterus, real time with image documentation, transvaginal Indication ----- --------- Screening for Anatomic Survey , Screening for cervical length , Anxiety , Depression , Gestational hypertension without significant proteinuria , Obesity in , History of gestational hypertension. History ----- --------- OB History 2. Para 1 [id number] Maternal Assessment ----- --------- Physical Exam Height [...] EFW (oz) 13 oz EFW by: Hadlock ([id number]) Extended Tibia 23.0 mm 18w 1d 2% [...] Heart/Thorax: RVOT view. LVOT view. 3-vessel view. 0-zbwnqz-drxiemd view. Situs. Bicaval view. Cardiac position. Cardiac [...] cyst noted. Recommendations ----- --------- Please see [facility] documentation from today. The patient is scheduled in four to six week(s) to complete anatomic survey. Subsequent follow up or other follow up as clinically determined by primary OB provider unless otherwise specified by [facility]. Results forwarded to ordering provider so they can follow up with the patient as necessary. Procedure Note Sheila Cruz MD - 05/17/2025 NAME: PAULA HUGHES : 1990 SEX: F Accession Number: [id number] ORDERING PHYSICIAN: ISRAEL BRODERICK REFERRING PHYSICIAN: ISRAEL BRODERICK Coding ----- --------- Procedures [id number]: Ultrasound, uterus, real time with imagedocumentation, and maternal evaluation plus detailed anatomic examination, transabdominalapproach;single or first gestation [id number]: Ultrasound, uterus, real time with imagedocumentation, transvaginal Indication ----- --------- Screening for Anatomic Survey , Screening for cervical length , Anxiety ,Depression , Gestational hypertension without significant proteinuria , Obesity in , History of gestationalhypertension. History ----- --------- OB History 2. Para 1 [id number] Maternal Assessment ----- --------- Physical Exam Height [...] EFW (oz) 13 oz EFW by: Hadlock ([id number]-FL) Extended Tibia 23.0 mm 18w 1d 2% [...] Heart/Thorax: RVOT view. LVOT view. 3-vessel view. 8-cqhuzc-awhkvhu view.Situs. Bicaval view. Cardiac position. Cardiac axis. [...] cyst noted. Recommendations ----- --------- Please see [facility] documentation from today. The patient is scheduled in four to six week(s) to complete anatomicsurvey. Subsequent follow up or other follow up as clinically determined byprimary OB provider unless otherwise specified by [facility]. Results forwarded to ordering provider so they can follow up with thepatient as necessary. us Israel Broderick DO [facility] US ORDERABLES Final Result documented in this encounter Visit Diagnoses Diagnosis Hypertension affecting in second trimester documented in this encounter Care Teams Imaging Center Manager Relationship Specialty Start Date End Date [address] PCP - General Family Medicine 11/03/24 documented as of this encounter
--- OUTSIDE RECORDS SUMMARY | 2025-05-17 09:00 | XMS_ITS | Encounter Summary ---
Author Organization [facility] tem Address [facility] [place]-[id number] [address] [place] [address] Care Team Providers Care Hourly Manager Name Role Phone Services, [facility] Primary Care Provider Reason for Visit * Reason Comments gHTN PCOS Encounter Details Date Type Department Care Team (Late st Contact Info) Description 05/17/2025 9:00 AM EDT Office Visit Maternal- Medicine at [facility] [address] [place] [address] Clair Hare MD [address] [facility], [address] [place] [id number] Sheila Cruz MD [address] [facility] 1[address] [place] [address] Chronic hypertension affecting (Primary Dx); Acute palmoplantar pustular psoriasis; Severe obesity due to excess calories affecting , antepartum ([facility]); 20 weeks gestation of Social History Tobacco Use Types Packs/Day Years [...] Sign Reading Time Taken Comments Blood Pressure 147/84 05/17/2025 7:51 AM EDT Pulse 87 05/17/2025 7:51 AM EDT Temperature - - Respiratory Rate - - Oxygen Saturation - - Inhaled Oxygen Concentration - - Weight 128.1 kg (282 lb 8 oz) 05/17/2025 7:51 AM EDT Height 172.7 cm (5' 7.99 ) 05/17/2025 7:51 AM ED T Body Mass Index 42.96 05/17/2025 7:51 AM EDT documented in this encounter Progress Notes * Bethany Lundy LPN - 05/17/2025 9:00 AM EDT Headache/epigastric pain/blurry vision/swelling? Headaches are better with magnesium, still gettingsome that take a while to go away Cramping/contractions? No Spotting/vaginal bleeding? No Loss or gush of fluid like your water may have broken? No Do you have cats at home? No Do you change the litter box (reason: risk of toxoplasmosis)? N/A Genetic testing done this here or other office? No Have you been seen here at [facility] in a previous ? No Recent ER visits or hospitalizations? Yes, for slicing thumb on mandolin Bring blood sugar log or meter with you today? (Please bring them with you for every visit at [facility]) N/A Flu vaccine (Jun-October)? N/A Any concerns that you would like me to mention to the provider today? Hands get itchy with white spots * Sheila Cruz MD - 05/17/2025 9:00 AM EDT Images from the original note were not included. REASON FOR CONSULTATION: CHTN HISTORY OF PRESENT ILLNESS: Chayo Leandra Ramires is a pleasant 35 y.o. at 20w2d due on Estimated Date of Delivery: 10/02/25. complicated by: CHTN Obesity affecting . 03/20/2025 A1c 5.1%> PCOS, managed on metformin daily to assist with conception Acute palmoplantar eczema Anxiety and depresion, compliant with zoloft 50mg daily Today, the patient is doing well. She denies headaches, vision changes, nausea, vomiting, right upper quadrant or epigastric pain, SOB or chest pain. She denies contractions, vaginal bleeding, leaking of fluid. She reports good movement. She has noted pruritus of bilateral hands. Aneuploidy screening: none Carrier screening: Baby Boy: I have reviewed the pertinent available patient records including but not limited to notes, labs and images. 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 PCOS (polycystic ovarian syndrome) SURGICAL HISTORY: Past Surgical History: Procedure Laterality Date LAPAROSCOPY DIAGNOSTIC / BIOPSY / ASPIRATION / LYSIS WISDOM TOOTH EXTRACTION FAMILY/GENETIC HISTORY: Family History Problem Relation Age of Onset Sudden Paternal Grandfather Hypertension Paternal Grandfather Heart disease Paternal Grandfather Cancer Maternal Grandfather Diabetes Father Hypertension Father Hypertension Mother Epilepsy Brother Sudden Paternal Uncle Autoimmune disease Neg Hx Autism Neg Hx Developmental delay Neg Hx Down syndrome Neg Hx Bleeding Disorder Neg Hx Clotting disorder Neg Hx Heart defect Neg Hx SOCIAL HISTORY: Social History Tobacco Use Smoking status: Never Smokeless tobacco: Never Vaping Use Vaping status: Never Used Substance Use Topics Alcohol use: Not Currently Drug use: Never ALLERGIES: No Known Allergies CURRENT MEDICATIONS: Current Outpatient Medications: aspirin 81 mg, Take 1 tablet (81 mg total) by mouth in the morning., Disp: , Rfl: magnesium oxide (MAGOX) 400 mg tablet, Take 1 tablet (400 mg total) by mouth in the morning., Disp:, Rfl: 115/iron/folic acid ( 19 ORAL), Take 1 tablet by mouth in the morning., Disp: , Rfl: sertraline (ZOLOFT) 25 mg tablet, Take 2 tablets (50 mg total) by mouth before bedtime., Disp: , Rfl: cholecalciferol 10 mcg (400 unit) tablet, 2 tablets (800 Units total) in the morning. (Patient not taking: Reported on 11/03/2024), Disp: , Rfl: clobetasoL (TEMOVATE) 0.05 % ointment, Apply a thin layer to the affected areas twice daily., Disp:30 g, Rfl: 0 NIFEdipine XL (PROCARDIA XL) 30 mg 24 hr tablet, Take 1 tablet (30 mg total) by mouth in the morning and at bedtime., Disp: 60 tablet, Rfl: 2 omeprazole (PriLOSEC) 20 mg capsule, Take 1 capsule (20 mg total) by mouth in the morning. (Patientnot taking: Reported on 04/29/2025), Disp: , Rfl: sertraline (ZOLOFT) 25 mg tablet, Take 2 tablets (50 mg total) by mouth before bedtime. (Patient not taking: Reported on 05/17/2025), Disp: , Rfl: RECENT HOSPITALIZATION: none HABITS: Patient activity no restrictions, diet no restrictions REVIEW OF SYSTEMS: Head and Neck: Negative for any dizziness and headaches. Cardiovascular and Respiratory System: Denies any chest pain, shortness of breath, and coughing. Abdominal and System: Denies any abdominal pain, nausea, vomiting, vaginal bleeding, and vaginal discharge REVIEW OF TESTS AND ULTRASOUND REPORTS: Referral records and epic chart were reviewed Pertinent Ultrasound findings are see formal ultrasound report. PHYSICAL EXAMINATION: BP 147/84 (BP Site: Right Arm, BP Postition: Sitting) Pulse 87 Ht 172.7 cm (5' 7.99 ) Wt 128.1 kg (282 lb 8 oz) LMP 12/26/2024 BMI 42.96 kg/m?? Vitals with Age-Percentiles Systolic Diastolic Pulse Respiration 01/20/2023 158 ! 105 (H) 88 16 03/13/2024 136 ! 94 (H) 83 11/03/2024 159 ! 101 (H) 81 16 11/04/2024 133 ! 92 (H) 71 18 123 ! 106 (H) 134 ! 95 (H) 138 ! 96 (H) 138 ! 96 (H) 149 ! 95 (H) 146 88 145 ! 97 (H) 168 ! 95 (H) 04/29/2025 150 90 74 19 05/17/2025 147 84 87 Well-appearing in no distress. Respirations not labored, speaking comfortably in full sentences Bilateral hands with patchy dryness and small vesicular eruptions on fingers Gravid abdomen OVERALL ASSESSMENT -Chayo Ramires is a pleasant 35 y.o. at 20w2d -chronic hypertension affecting -obesity affecting -Acute palmoplantar eczema -anxiety affecting -depression affecting COUNSELING/MEDICAL DECISION-MAKING Chronic Hypertension We discussed the risks of chronic hypertension including growth restriction, increased risk of preeclampsia, delivery, and/ or placental abruption. With mild hypertension, no underlyingcardiac disease, and normal renal function, most women do well in . We recommend baseline p reeclampsia labs, 24 hour urine protein, BNP. Baseline EKG in October 2024 with a normal limits. I explained that acceptable blood pressures in pregnancies with chronic hypertension < 140 systolic and <90 diastolic. Antihypertensive medication treatment with aim to maintain BPs <140/90 have demonstrated improvements in outcomes including development of severe preeclampsia, indicated delivery < 35 weeks, abruption, or , without increased risk of fetalgrowth restriction or other serious maternal or adverse outcomes. Based on this data, ACOGrecommends utilizing 140/90 as the threshold for initiation or titration of medical therapy for chronic hypertension in , rather than the previously recommended threshold of 160/110. Referenc e: PMID: [id number], 2021. Blood pressures do increase as progresses and it is possible that she may require an increase in her medication dosing. However, any significant exacerbation in baseline BPs in after 20 weeks in a patient with CHTN should be worked up closely for possible superimposed preeclampsia. I recommended serial growth ultrasounds every 4 weeks after 20 weeks to ensure appropriate growth. In addition, testing recommended should be initiated at 32 weeks. With uncomplicated hypertension, reassuring testing, and no evidence of preeclampsia it is reasonable to deliver at 39 weeks. If complications arise, it may be necessary to deliver earlier. I also recommend baby aspirin once daily to reduce the risk of preeclampsia. There have been several dosing strategies for low dose aspirin for preeclampsia prevention, 81 mg (endorsed by ACOG) and 150 mg daily. Our practice continues to endorse the 81 mg dosing regimen for preeclampsia preventionas is recommended by the [place] [employer] Committee Opinion No. 743. Higher doses (150mg) have been studied, but utilized a screening strategy that is not widely performed in the [facility] (serum analytes and uterine artery Doppler), limiting the generalizability of the findings. We discussed the safety profile of nifedipine and betal blockers when used to treat chronic hypertension in . Aneuploidy screening Options for further testing were discussed in detail during today's visit. We reviewed the limitations of ultrasound with up to 2/3 of defects failing to be identified using this modality. In addition, 1 in 2 pregnancies with Down syndrome have no ultrasound findings. The patient was offered cell free DNA screening. Although cell-free DNA is not a diagnostic test , it has high sensitivity and specificity for the most common aneuploidies. A negative cell freeDNA does not ensure an unaffected . A patient with a positive screen should be referred for genetic counseling and offered invasive diagnosis for confirmation of screen results. Limitations of cell free DNA screening were reviewed with the patient. Cell free DNA does not replace the accuracy and diagnostic precision of amniocentesis which remains an option for all women. Patientopted for cell free DNA screening. SUMMARY/RECOMMENDATION: Cell free DNA ordered recommend baseline 24 hour urine protein and BNP, ordered continue daily aspirin for attempted prevention of preeclampsia Labetalol 200 mg b.i.d. discontinued. Transitioned to Procardia 30 mg b.i.d. monitor BP daily at home, BP cuff prescribed, BP logs to be reviewed with primary OB uptitrate antihypertensives, either with labetalol or nifedipine, to maintain blood pressure goal of less than 140/90 if she develops severe range BPs in this , I recommend she be admitted to the hospital forevaluation of suspected superimposed preeclampsia. Incomplete level 2 anatomy ultrasound, attempt completion in 4 weeks through [facility] serial growth ultrasounds every 4 weeks following completion of level 2 anatomy US, through primaryOB testing recommendation- twice weekly NSTs with CHETAN starting at 32 weeks, through primary OB reviewed monitoring for movements reviewed preeclampsia precautions Initiated on clobetasol 0.5% ointment for acute palmoplantar eczema Anticipate term vaginal delivery at local hospital. Timing of delivery pending further clinical course of chronic hypertension. If patient deliveries via section, recommend anticoagulation during hospitalization with Lovenox 40 mg b.i.d., per ACOG guidelines, once hemodynamically stable and cleared from anesthesia DISPOSITION: At this point the patient is in complete care of her clinical quality analyst. Patient does have ultrasound and office visit scheduled with us. Thank you for allowing me to participate in the care of Chayo Ramires. If there any questions please do not hesitate to contact us. Sheila Cruz MD Maternal- Medicine [facility] [address] [facility] [address] [place] [address] This document was created with [email or web address] technology. Though I make every effort to review the dictation as it is transcribed, on occasion the spoken word can be misinterpreted by the technology leading to inappropriate words, phrases, or sentences. This note is addressed to the requesting provider as a consultation for clinical guidance. Specificmedical abbreviations are occasionally used and those are generally approved by the [place]?Board of?Obstetrics and?Gynecology?as well as?Rama???s abbreviations. The above plan of care was based solely on the diagnoses for which a consultation was requested. ?More frequent testing may be indicated based on her other medical/obstetrical conditions. The management of other or medical conditions is beyond the scope of requested consultation and will c ontinue to be followed by the primary clinical quality analyst or primary care provider. Note to patient: The 21st Century Cures Act makes medical notes like these available to patients inthe interest of transparency. However, be advised this is a medical document. It is intended as peer to peer communication. It is written in medical language and may contain abbreviations or verbiagethat are unfamiliar. It may appear blunt or direct. Medical documents are intended to carry relevant information, facts as evident, and the clinical opinion of the practitioner. * Bethany Lundy LPN - 05/17/2025 9:00 AM EDT Blood drawn for cell-free DNA testing per [facility] phlebotomy. Patient tolerated well. documented in this encounter Plan of Treatment Upcoming Encounters Date Type Department Care Team (Late st Contact Info) Description 06/18/2025 8:00 AM EDT Appointment [facility] - Ultrasound [address] [place] [address] 06/18/2025 2:00 PM EDT Telemedicine Maternal- Medicine at [facility] [address] [place] [id number] Sheila Cruz MD [address] [facility] 1st [place] [address] Scheduled Orders Name Type Priority Associated Diagnoses Orde r Schedule Protein, urine, 24 hour Lab Routine Chronic hypertension affecting 20 weeks gestation of 1 Occurrences starting 05/17/2025 until 05/17/2026 Creatinine, urine, 24 hour Lab Routine Chronic hypertension affecting 20 weeks gestation of 1 Occurrences starting 05/17/2025 until 05/17/2026 documented as of this encounter Results * B-type natriuretic peptide (05/17/2025 9:54 AM EDT) BNP 46 <=100 pg/mL 05/17/2025 11:13 AM EDT [facility] Blood Venous blood / Unknown Venipuncture / Unknown 05/17/2025 9:54 AM EDT 05/17/2025 9:54 AM EDT us Sheila Cruz MD LAB BLOOD ORDERABLES Final Resul t [facility] [address] [place] [address], documented in this encounter Visit Diagnoses Diagnosis Chronic 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 Severe obesity due to excess calories affecting , antepartum ([facility]) 20 weeks gestation of documented in this encounter Care Teams Hourly Manager Relationship Specialty Start Date End Date [facility], [facility] [address] [place], [place] PCP - General Family Medicine 11/03/24 documented as of this encounter
--- OUTSIDE RECORDS SUMMARY | 2025-05-17 09:00 | XMS_ITS | Encounter Summary ---
Author Organization [facility] tem Address [facility] [place]-[id number] [address] [place] [address] Care Team Providers Care Air Commodore Name Role Phone Services, [facility] Primary Care Provider Reason for Visit * Reason Comments gHTN PCOS Encounter Details Date Type Department Care Team (Late st Contact Info) Description 05/17/2025 9:00 AM EDT Office Visit Maternal- Medicine at [facility] [address] [place] [address] Clair Hare MD [address] [facility], [address] [place] [address] Sheila Cruz MD [address] [facility] [address] [place] [address] Chronic hypertension affecting (Primary Dx); Acute palmoplantar pustular psoriasis; Severe obesity due to excess calories affecting , antepartum ([facility]); 20 weeks gestation of Social History [...] No Have you been seen here at [facility] in a previous ? No Recent ER visits or hospitalizations? Yes, for slicing thumb on mandolin Bring blood sugar log or meter with you today? (Please bring them with you for every visit at [facility]) N/A Flu vaccine (Jun-October)? N/A Any concerns [...] recommended threshold of 160/110. Referenc e: PMID: [id number], 2021. Blood pressures do increase as progresses [...] for preeclampsia preventionas is recommended by the [place] [employer]ne[employer] Committee Opinion No. 743. Higher doses (150mg) have been studied, but utilized a screening strategy that is not widely performed in the [facility] (serum analytes and uterine artery Doppler), [...] ultrasound, attempt completion in 4 weeks through [facility] serial growth ultrasounds every 4 weeks following [...] patient is in complete care of her vehicle body builder. Patient does have ultrasound and office visit scheduled with us. Thank you for allowing me to participate in the care of Chayo Ramires. If there any questions please do not hesitate to contact us. Sheila Cruz MD Maternal- Medicine [facility] [address] [facility] 1st [place] [address] This document was created with addwish technology. Though I make every effort to review the dictation as it is transcribed, on occasion the spoken word can be misinterpreted by the technology leading to inappropriate words, phrases, or sentences. This note is addressed to the requesting provider as a consultation for clinical guidance. Specificmedical abbreviations are occasionally used and those are generally approved by the [place]?Board of?Obstetrics and?Gynecology?as well as?Rama???s abbreviations. The above plan of care was based solely on the diagnoses for which a consultation was requested. ?More frequent testing may be indicated based on her other medical/obstetrical conditions. The management of other or medical conditions is beyond the scope of requested consultation and will c ontinue to be followed by the primary vehicle body builder or primary care provider. Note to patient: [...] Blood drawn for cell-free DNA testing per [facility] phlebotomy. Patient tolerated well. documented in this encounter Plan of Treatment Upcoming Encounters Date Type Department Care Team (Late st Contact Info) Description 06/18/2025 8:00 AM EDT Appointment [facility] - Ultrasound [address] [place] [address] 06/18/2025 2:00 PM EDT Telemedicine Maternal- Medicine at [facility] [address] [place] [phone] Sheila Cruz MD [address] [facility] 1st [place] [address] Scheduled Orders Name Type Priority Associated Diagnoses [...] 46 <=100 pg/mL 05/17/2025 11:13 AM EDT [facility] Blood Venous blood / Unknown Venipuncture / Unknown 05/17/2025 9:54 AM EDT 05/17/2025 9:54 AM EDT us Sheila Cruz MD LAB BLOOD ORDERABLES Final Resul t [facility] [address] [place] [address], documented in this encounter Visit Diagnoses Diagnosis Chronic 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 Severe obesity due to excess calories affecting , antepartum ([facility]) 20 weeks gestation of documented in this encounter Care Teams Air Commodore Relationship Specialty Start Date End Date [facility], [facility] [address] [place], [place] PCP - General Family Medicine 11/03/24 documented as of this encounter
--- OUTSIDE RECORDS SUMMARY | 2025-05-21 09:15 | XMS_ITS ---
Author Organization [facility] vices Address [address] [place] [id number] Care Team Providers Care Parts Clerk Name Role Phone Sabiha Aviles Primary Care Provider [phone] Judy Yepez Unavailable [phone] Allergies No Known Allergies REASON FOR VISIT depression Medications Medication SIG (Take, Route, Frequency, Duration) Notes Start Date End Date Status Amoxicillin 500 MG 1 capsule Orally marichuy ry 8 hrs; Duration: 7 days 05/21/2025 Active Aspirin Adult Low Dose 81 MG 1 tablet Orally Once a day Active Labetalol HCl 200 MG 1 tablet Orally Twi ce a day Active vitamin Active NIFEdipine ER 30 MG 1 tablet on an empty stomach Orally Once a day Active Magnesium 400 MG as directed Orally Active Sertraline HCl 50 MG 1 tablet Orally Onc e a day; Duration: 90 days 11/06/2024 Active Social History Sex Assigned At : Social History Observation Description Sex Assigned At Female Vital Signs Temperature 98.0 degrees Fahrenheit 05/21/20 25 Weight 284 lbs 05/21/2025 Height 68 in 05/21/2025 BMI 43.18 kg/m2 05/21/2025 Blood pressure systolic 141 mm Hg 05/21/20 25 Blood pressure diastolic 85 mm Hg 025 Heart Rate 95 /min 05/21/2025 Respiratory Rate 18 /min 05/21/2025 Oximetry 99 % 05/21/2025 Weight-kg 128.82 kg 05/21/2025 Height-cm 172.72 cm 05/21/2025 Dayron Shen 025 01:17:11 PM EDT > Encounters Encounter Location Date Provider Diagnosis Main [address] [place], [place] [id number] 05/21/2025 Judy Yepez Anxiety with depress ion F41.8 ; Left otitis media, unspecified otitis media type H66.92 ; 21 weeks gestation of Z3A.21 ; Severe obesity (BMI >= 40) E66.01 and BMI 40.0-44.9, adult Z68.41 Assessments Encounter Date Diagnosis (ICD Code) Assessment Notes Treatment Notes Treatment Clinical Notes Section Notes 05/21/2025 Anxiety with depression (ICD-10 - F41.8) Depression stable. Will continue current medications. Advised pt if they are have suicidal or homicidal to call 911 or go to the ER. F/u 3 months & PRN Continue following w/ OBGYN for 05/21/2025 Left otitis media, unspecified otitis media type (ICD-10 - H66.92) Both ears WNL upon examination Pt reports ongoing pain in L ear for 4 weeks, denies allergies, hx of otiti media in adult life and feels similar RX sent at this time for Amoxicillin F/U PRN 05/21/2025 21 weeks gestation of (ICD-10 - Z3A.21) 05/21/2025 Severe obesity (BMI >= 40) (ICD-10 - E66.01) 05/21/2025 BMI 40.0-44.9, adult (ICD-10 - Z68.41) Plan Of Treatment Medication Medication Name Sig Start Date Stop Date Notes Amoxicillin 500 MG 1 capsule Orally marichuy ry 8 hrs; Duration: 7 days 05/21/2025 Sertraline HCl 50 MG 1 tablet Orally Onc e a day; Duration: 90 days 11/06/2024 Treatment Notes Assessment Notes Anxiety with depression Depression stable. Will continue current medications. Advised pt if they are have suicidal or homicidal to call 911 or go to the ER. F/u 3 months & PRN Continue following w/ OBGYN for Left otitis media, unspecifi ed otitis media type Both ears WNL upon examination Pt reports ongoing pain in L ear for 4 weeks, denies allergies, hx of otiti media in adult life and feels similar RX sent at this time for Amoxicillin F/U PRN Next Appt Details Follow Up: 3 months Depressi on, Reason: Provider Name:Judy Yepez , 08/20/2025 01:15:00 PM, [address] [place], [place], [phone], Progress Notes * Chayo RAMIRES JDOB: [birth year] (35 yo F)Acc No.[id number]:05/21/2025 Medical Note Patient: Chayo DAWSON Provider: Gavin Yepez :1990 A ge:35 Y S ex:Female Date:05/21/2025 Address:[address] [place], [place] [phone] Pcp:Sabiha Aviles Subjective: * Chief Complaints: * D epression * HPI: I nterim History: DEPRESSION Medication: Sertraline 50mg 1QD Pt reports she is dealing w/ issues w/ her BP so unsure whether it stems from anxiety or HTN Pt is 21 weeks at this time, follows w/ Dr. Broderick Pt reports she has chronic HTN Pt follows w/ MFM at this time, first appt was last Tuesday Pt was evaluated by Cardiology in the past and had a Holter 24 hour monitor, only one PVC noted LEFT EAR OTITIS MEDIA Pt has had ear pain on the left ear for about 4 weeks now No issues w/ hearing Has prior hx of ear infection in her adult life. * ROS: N egative except mentioned above in the HPI. * Medical History: * Associate Designer History: M enstrual history: L MP: 0 02/17/2023 A ge of Menarche: 1 1 P eriods : l ast period was in January usually has a period every month. Took several at home test that were negative. B irth control n one. S exual activity c urrently sexually active, with men. S exually Transmitted Diseases (STDs) n one. L ast pap smear date Negative HPV negative. A bnormal pap smear N o. * OB History: P regnancy History: Total pregnancies: 1 Full-term pregnancies: 1 Total living children: 1 * Surgical History: W isdom teeth laparoscopy- endometriosis * Hospitalization/Major Diagno stic Procedure: D enies Past Hospitalization * Family History: F ather: alive, diagnosed with Hypertension, Diabetes. M other: alive, diagnosed with Hypertension. P aternal Grand Father: unknown, diagnosed with Hypertension, Heart Disease. P ategerardl Grand Mother: . M ategerardl Grand Father: , diagnosed with Cancer. M ategerardl Grand Mother: . Gerber michaels: alive. 1 brother(s) . . * Medications: T akingLabetalol HCl 200 MG Tablet 1 tablet Orally Twice a day Aspirin Adult Low Dose 81 MG Tablet Delayed Release 1 tablet Orally Once a day NIFEdipine ER 30 MG Tablet Extended Release 24 Hour 1 tablet on an empty stomach Orally Once a day , Notes to Pharmacist: vitaminMagnesium 400 MG Tablet as directed Orally Sertraline HCl 50 MG Tablet 1 tablet Orally Once a day Taking Labetalol HCl 200 MG Tablet 1 tablet Orally Twice a day Taking Aspirin Adult Low Dose 81 MG Tablet Delayed Release 1 tablet Orally Once a day Taking NIFEdipine ER 30 MG Tablet Extended Release 24 Hour 1 tablet on an empty stomach Orally Once a day Taking , Notes to Pharmacist: vitaminTaking Magnesium 400 MG Tablet as directed Orally Taking Sertraline HCl 50 MG Tablet 1 tablet Orally Once a day DiscontinuedOmeprazole 20 MG Capsule Delayed Release 1 capsule 30 minutes before morning meal Orally Once a day Cholecalciferol 10 MCG (400 UNIT) Capsule 2 capsules Orally Once a day , Notes to Pharmacist: SHWETA submitted 6/20metFORMIN HCl ER 500 MG Tablet Extended Release 24 Hour 1 tablet with evening meal Orally Once a day Clomid 50 MG Tablet 1 tablet Oral Once a day Medication List reviewed and reconciled with the patientDiscontinued Omeprazole 20 MG Capsule Delayed Release 1 capsule 30 minutes before morning meal Orally Once a day Discontinued Cholecalciferol 10 MCG (400 UNIT) Capsule 2 capsules Orally Once a day , Notes to Pharmacist: SHWETA submitted 6/20Discontinued metFORMIN HCl ER 500 MG Tablet Extended Release 24 Hour 1 tablet with evening meal Orally Once a day Discontinued Clomid 50 MG Tablet 1 tablet Oral Once a day Medication List reviewed and reconciled with the patient * Allergies: N .K.D.A.no[Allergies Verified] Objective: * Vitals: T emp:98.0F, Wt:284lbs, Ht: 68 in, BMI:43.18Index, BP:141/85mm Hg, HR:95/min, RR:18/min, Pain scale:01-10, Oxygen sat %:99%, Wt-k.82 kg, Ht-cm: 172.72 cm, Body Surface Area: 2.48. Dayron Shen 05/21/2025 01:17:11 PM EDT >. * Examination: G eneral Examination: General appearance: a lert, pleasant, well-nourished and in no acute distress. Head: n ormocephalic, atraumatic. Ears: b oth ears,normal. Heart: r egular rate and rhythm without murmurs, gallops, clicks or rubs. Lungs: c lear to auscultation bilaterally, with good air movement and no rales, rhonchi or wheezes. Psych: a lert and oriented x 3 , cooperative with exam,?normal affect / mood , speech is clear and coherent. Assessment: * Assessment: 1. A nxiety with depression - F41.8 (Primary) 2 . L eft otitis media, unspecified otitis media type - H66.92 3 . 2 1 weeks gestation of - Z3A.21? 4. S evere obesity (BMI >= 40) - E66.01 5 . B [place] 40.0-44.9, adult - Z68.41 Plan: * Treatment: 2. L eft otitis media, unspecified otitis media type Start Amoxicillin Capsule, 500 MG, 1 capsule, Orally, every 8 hrs, 7 days, 21 Capsule, Refills 0.? Notes: Both ears WNL upon examination Pt reports ongoing pain in L ear for 4 weeks, denies allergies, hx of otiti media in adult life and feels similar RX sent at this time for Amoxicillin F/U PRN * Procedure Codes: 3 077F HTN SYST BP >= 3253807E HTN DIAST BP = 80-89 * Preventive Medicine: Counseling: C ommunication to patient: Counseling for nutrition provided Y es Counseling for physical activity provided Y es * Follow Up: 3 months Depression * Billing Information: * Visit Code: [id number] Office Visit Est 20-29 minutes. * Procedure Codes: 3077F HTN SYST BP >= 140. 3079F HTN DIAST BP = 80-89. * Sign off status: Completed true * Provider: Gavin Yepez Date: 0 05/21/2025 Generated for Carol grewal/Jeannie/eTransmitting on: 1 10:04 AM EDT History and Physical Notes * Examination Category Sub-Category Detail Notes Category Not es General Examination General appearance: alert, p leasant, well-nourished and in no acute distress Head: normocephalic, atrau matic Ears: both ears, normal Heart: regular rate and rhy thm without murmurs, gallops, clicks or rubs Lungs: clear to auscultatio n bilaterally, with good air movement and no rales, rhonchi or wheezes Psych: alert and oriented x 3 , cooperative with exam, normal affect / mood , speech is clear and coherent
--- OUTSIDE RECORDS SUMMARY | 2025-05-21 09:15 | XMS_ITS ---
Author Organization [facility] vices Address [address] [place] [id number] Care Team Providers Care Testing Machine Operator Name Role Phone Sabiha Aviles Primary Care Provider Judy Yepez Unavailable [phone] Allergies No Known Allergies REASON FOR VISIT [...] Date Provider Diagnosis Main [address] [place], [place] [id number] 05/21/2025 Judy Yepez Anxiety with depress ion [...] Name:Judy Yepez , 08/20/2025 01:15:00 PM, [address] [place], [phone], Progress Notes * Chayo RAMIRES JDOB: 2 (35 yo F)Acc No.[id number]:05/21/2025 Medical Note Patient: Chayo DAWSON Provider: Gavin Yepez :1990 A ge:35 Y S ex:Female Date:05/21/2025 Address:[address] [place], [place] [phone] Pcp:Sabiha Aviles Subjective: * Chief Complaints: * [...] in the HPI. 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 B TN 40.0-44.9, adult - Z68.41 Plan: * Treatment: [...] Codes: 3 077F HTN SYST BP >= 5306953S HTN DIAST BP = 80-89 * Preventive Medicine: Counseling: C ommunication to patient: Counseling for nutrition provided Y es Counseling for physical activity provided Y es * Follow Up: 3 months Depression * Billing Information: * Visit Code: [id number] Office Visit Est 20-29 minutes. * Procedure Codes: 3077F HTN SYST BP >= 140. 3079F HTN DIAST BP = 80-89. * Sign off status: Completed true * Provider: Gavin Yepez Date: 0 05/21/2025 Generated for Carol grewal/Jeannie/eTransmitting on: 1 02:13 PM EDT History and Physical Notes * Examination [...]
--- OUTSIDE RECORDS SUMMARY | 2025-05-23 14:13 | XMS_ITS | Encounter Summary ---
Author Organization [facility] Address [address] [place] [address] Care Team Providers Care Gm/Svp Global Publisher Business Name Role Phone Judy Caal Unavailable Unavailable Encounter Details Date Type Department Care Team (Late st Contact Info) Description 05/20/2025 Abstract [facility] [address] [place] [address] Tsering Willingham MA Social History Tobacco [...] Care Team (Late st Contact Info) Description 05/23/2025 2:30 PM EDT Routine [facility] [address] [place] [place] [address] Rosie Qiu, JEM [address] [place] [address] 12/16/2025 3:00 PM EDT Office Visit [facility] [address] [place] [address] Caesar Broderick DO [address] [place] [address] documented as of this encounter Visit Diagnoses Not on filedocumented in this encounter Care Teams Gm/Svp Global Publisher Business Relationship Specialty Start Date End Date Judy Caal PCP - [facility] SCRAP HOIST OPERATOR 02/20/24 documented as of this encounter
--- OUTSIDE RECORDS SUMMARY | 2025-05-23 14:13 | XMS_ITS | Encounter Summary ---
Author Organization [facility] Address [address] [facility] [place] [address] Care Team Providers Care Director Of Infection Control Name Role Phone Judy Caal Unavailable Unavailable Encounter Details Date Type Department Care Team (Late st Contact Info) Description 05/15/2025 Telephone [facility] [address] [place] [phone] Caesar Broderick DO [address] [place] [address] Social History Tobacco Use Types Packs/Day Years Used Date Smoking Tobacco: Never Assessed Estimated Date of Delivery Comme nts Yes 10/02/2025 Based on last me nstrual period of 12/26/2024 Sex and Gender Information Value Date Recorded Sex Assigned at Not on file Legal Sex Female 9:48 AM EDT Gender Identity Not on file Sexual Orientation Not on file documented as of this encounter Miscellaneous Notes * Telephone Encounter - Luz Marina Velez LPN - 05/15/2025 1:32 PM EDT This is Bethany calling from [facility] at [facility], I was just calling on Chayo Ramires. Date of , , and we are going to see her on Tuesday and I just was double checking. I see that she signed a consent form for genetic testing. But I didn't see anything in care everywhere and I did not see anything in her referral sent over, so I just wanted to double check withyou that she did not have it drawn if she did have it drawn, if you do not mind faxing it over justto our normal fax number, um, that would be Amazing. And then if she has not had it done, if you donot mind just giving me a quick call. My direct phone number is [phone]. Thanks so much, thien tubbsstephen. Called and spoke with eBthany and advised that on patient OB Flow sheet she did decline the [place] testing. Bethany voiced understanding and not further needs. documented in this encounter Plan of Treatment Upcoming Encounters Date Type Department Care Team (Late st Contact Info) Description 05/23/2025 2:30 PM EDT Routine [facility] [address] [place] [phone] Rosie Qiu, VALVE TESTER [address] [place] [phone] 12/16/2025 3:00 PM EDT Office Visit [facility] [address] [place] [address] Caesar Broderick DO [address] [place], [place] [phone] documented as of this encounter Visit Diagnoses Not on filedocumented in this encounter Care Teams Director Of Infection Control Relationship Specialty Start Date End Date Judy Caal PCP - [facility] RESIDENTIAL INSTALLER 02/20/24 documented as of this encounter
--- OUTSIDE RECORDS SUMMARY | 2025-05-23 14:13 | XMS_ITS | Encounter Summary ---
Author Organization [facility] Address [address] [facility] [place] [address] Care Team Providers Care Box Stacker Name Role Phone Judy Caal Unavailable Unavailable Encounter Details Date Type Department Care Team (Late st Contact Info) Description 05/17/2025 External Result Encounter [facility] [address] [place] [address] Israel Broderick DO [address] [place], [id number] Social History Tobacco Use Types Packs/Day Years [...] 2:30 PM EDT Routine [facility] [address] [place] [address] Rosie Qiu, JEM [address] [place] [address] 12/16/2025 3:00 PM EDT Office Visit [facility] [address] [place] [address] Israel Broderick, DO [address] [facility] [place] [address] documented as of this encounter Procedures Procedure Name Priority Date/Time Associated Diagnosis Comments US OB 14+ WEEKS ANATOMY SCAN 05/17/2025 4:39 PM EDT documented in this encounter Results * US OB 14+ weeks anatomy scan (05/17/2025 4:39 PM EDT) Anatomical Region Laterality Modality Body Ultrasound 05/17/2025 4:39 PM EDT Narrative 05/17/2025 4:39 PM EDT THIS EXAM WAS PERFORMED AT [facility] NAME: PAULA HUGHES : 1990 SEX: F Accession Number: [id number] ORDERING PHYSICIAN: ISRAEL BRODERICK REFERRING PHYSICIAN: ISRAEL BRODERICK Coding ----- --------- Procedures 98139: Ultrasound, uterus, real time with image documentation, and maternal evaluation plus detailed anatomic examination, transabdominal approach;single or first gestation 60127: Ultrasound, uterus, real time with image documentation, transvaginal Indication ----- --------- Screening for Anatomic Survey , Screening for cervical length , Anxiety , Depression , Gestational hypertension without significant proteinuria , Obesity in , History of gestational hypertension. History ----- --------- OB History 2. Para 1 [id number] Maternal Assessment ----- --------- Physical Exam Height 173 cm, 5 ft 8 in. Weight 128 kg, 282 lb. Initial weight 124 kg, 274 lb. BMI 42.88 kg/m???. Initial BMI 41.66 kg/m???. Weight gain 4 kg, 8 lb Method [...] EFW (oz) 13 oz EFW by: Hadlock ([id number]) Extended Tibia 23.0 mm 18w 1d 2% Gavino Nasal bone 5.4 mm 6% Son Head / Face / Neck Cephalic index 0.80 66% Nicolaides Nasal bone: present Extremities / Bony Struc FL / BPD 0.66 12% Hadlock FL / HC 0.18 21% Hadlock FL / AC 0.21 37% Hadlock Other Structures FHR 155 bpm Anatomy ----- --------- The following structures appear normal: Head/Neck: Cranium. Parenchyma. Face: Nasal bone. Heart/Thorax: RVOT view. LVOT view. 3-vessel view. 6-jwvdhq-aphkdjz view. Situs. Bicaval view. Cardiac position. Cardiac [...] 3.8 cm x 2.4 cm. Vol 21.6 cm??? Cyst(s) Simple cyst. Size 23 mm x 26 mm x 20 mm. Mean 23.0 mm. Vol 6.262 cm??? Cul de Sac Visualized. No free fluid visualized Impression ----- --------- Single live intrauterine consistent with 20w 2d with an PETROS of 10/02/2025. Normal growth. EFW measures at the 60%, AC measures at the 56%. Transvaginal cervical length measures 3.06 cm. Amniotic fluid MVP measures 6.6 cm. Maternal left ovarian cyst noted. Recommendations ----- --------- Please see [facility] documentation from today. The patient is scheduled in four to six week(s) to complete anatomic survey. Subsequent follow up or other follow up as clinically determined by primary OB provider unless otherwise specified by [facility]. Results forwarded to ordering provider so they can follow up with the patient as necessary. Procedure Note Radiology, Radiologist, - 05/17/2025 THIS EXAM WAS PERFORMED AT [facility] NAME: PAULA HUGHES : 1990 SEX: F Accession Number: [id number] ORDERING PHYSICIAN: ISRAEL BRODERICK REFERRING PHYSICIAN: ISRAEL BRODERICK Coding ----- --------- Procedures 70601: Ultrasound, uterus, real time with imagedocumentation, and maternal evaluation plus detailed anatomic examination, transabdominalapproach;single or first gestation 86036: Ultrasound, uterus, real time with imagedocumentation, transvaginal Indication ----- --------- Screening for Anatomic Survey , Screening for cervical length , Anxiety ,Depression , Gestational hypertension without significant proteinuria , Obesity in , History of gestationalhypertension. History ----- --------- OB History 2. Para 1 [id number] Maternal Assessment ----- --------- Physical Exam Height 173 cm, 5 ft 8 in. Weight 128 kg, 282 lb. Initialweight 124 kg, 274 lb. BMI 42.88 kg/m???. Initial BMI 41.66 kg/m???. Weight gain 4 kg, 8 lb Method [...] EFW (oz) 13 oz EFW by: Hadlock ([id number]) Extended Tibia 23.0 mm 18w 1d 2% [...] Heart/Thorax: RVOT view. LVOT view. 3-vessel view. 4-yrujmf-codzjgo view.Situs. Bicaval view. Cardiac position. Cardiac axis. [...] 3.8 cm x 2.4 cm. Vol 21.6 cm??? Cyst(s) Simple cyst. Size 23 mm x 26 mm x 20 mm. Mean 23.0 mm. Vol6.262 cm??? Cul de Sac Visualized. No free fluid visualized Impression ----- --------- Single live intrauterine consistent with 20w 2d with an PETROS of10/02/2025. Normal growth. EFW measures at the 60%, AC measures at the 56%. Transvaginal cervical length measures 3.06 cm. Amniotic fluid MVP measures 6.6 cm. Maternal left ovarian cyst noted. Recommendations ----- --------- Please see [facility] documentation from today. The patient is scheduled in four to six week(s) to complete anatomicsurvey. Subsequent follow up or other follow up as clinically determined byprimary OB provider unless otherwise specified by MFM. Results forwarded to ordering provider so they can follow up with thepatient as necessary. us Israel Davie DO IMG OB US PROCEDURES Final Resul t documented in this encounter Visit Diagnoses Not on filedocumented in this encounter Care Teams Box Stacker Relationship Specialty Start Date End Date Judy Caal PCP - [facility] 02/20/24 documented as of this encounter
--- OUTSIDE RECORDS SUMMARY | 2025-05-23 14:13 | XMS_ITS | Encounter Summary ---
Author Organization [facility] Address [address] [place] [address] Care Team Providers Care Pharmacologist Name Role Phone Judy Caal Unavailable Unavailable Reason for Visit * Reason Comments Med Refill Encounter Details Date Type Department Care Team (Late st Contact Info) Description 05/15/2025 Refill [facility] [address] [place] [address] Caesar Broderick DO [address] [place] [address] Second trimester ([facility]); Gestational hypertension, antepartum ([facility]) Social History Tobacco Use Types Packs/Day Years [...] Encounter - Luz Marina Velez LPN - 05/16/2025 11:00 AM EDT Refill request received and script sent to pharmacy documented in this encounter Plan of Treatment Upcoming Encounters Date Type Department Care Team (Late st Contact Info) Description 05/23/2025 2:30 PM EDT Routine [facility] [address] [place] [address] Rosie Qiu, ANIMAL TRAINER SUPERVISOR [address] [facility] [place] [address] 12/16/2025 3:00 PM EDT Office Visit [facility] [address] [facility] [place] [phone] Caesar Broderick DO [address] [facility] [place] [address] documented as of this encounter Visit Diagnoses Diagnosis Second trimester ([facility]) state, incidental Gestational hypertension, antepartum ([facility]) documented in this encounter Care Teams Pharmacologist Relationship Specialty Start Date End Date Judy Caal PCP - [facility] VIEIRA 02/20/24 documented as of this encounter
--- OUTSIDE RECORDS SUMMARY | 2025-05-23 14:13 | XMS_ITS | Encounter Summary ---
Author Organization [facility] Address [address] [facility] [place] [address] Care Team Providers Care Heavy Equipment Operator Apprentice Name Role Phone Judy Caal Unavailable Unavailable Encounter Details Date Type Department Care Team (Late st Contact Info) Description 01/03/2025 Abstract [facility] [address] [facility] [place] [address] Tsering Willingham MA Social History Tobacco [...] 2:30 PM EDT Routine [facility] [address] [place] [address] Rosie Qiu, JEM [address] [facility] [place] [address] 12/16/2025 3:00 PM EDT Office Visit [facility] [address] [facility] [place] [address] Caesar Broderick DO [address] [facility] [address] [place], [place] [address] documented as of this encounter Visit Diagnoses Not on filedocumented in this encounter Care Teams Heavy Equipment Operator Apprentice Relationship Specialty Start Date End Date Judy Caal PCP - [facility] PNEUMATIC RIVETER 02/20/24 documented as of this encounter
--- OUTSIDE RECORDS SUMMARY | 2025-05-23 14:13 | XMS_ITS | Encounter Summary ---
Author Organization [facility] Address [address] [place] [address] Care Team Providers Care Manager Data Name Role Phone Judy Caal Unavailable Unavailable Encounter Details Date Type Department Care Team (Latest Contact Info) Description 05/22/2025 Travel Social History Tobacco Use Types Packs/Day Years [...] 2:30 PM EDT Routine [facility] [address] [place] [address] Rosie Qiu, RIPENING ROOM OPERATOR [address] [facility] [place] [id number] 12/16/2025 3:00 PM EDT Office Visit [facility] [address] [facility] [place] [address] Caesar Broderick DO [address] [place], [place] [id number] documented as of this encounter Visit Diagnoses Not on filedocumented in this encounter Care Teams Manager Data Relationship Specialty Start Date End Date Judy Caal PCP - [facility] HEALTH SAFETY COORDINATOR 02/20/24 documented as of this encounter
--- OUTSIDE RECORDS SUMMARY | 2025-05-23 14:13 | XMS_ITS | Encounter Summary ---
Author Organization [facility] Address [address] [place] [address] Care Team Providers Care Enterprise Application Administrator Name Role Phone Judy Caal Unavailable Unavailable Encounter Details Date Type Department Care Team (Late st Contact Info) Description 12/25/2024 Orders Only [facility] [address] [place] [address] Luz Marina Velez LPN [address] [facility] Katherin [place], [id number] Social History [...] 2:30 PM EDT Routine [facility] [address] [place] [address] Rosie Qiu, JEM [address] [place] [address] 12/16/2025 3:00 PM EDT Office Visit [facility] [address] [place] [address] Caesar Broderick DO [address] [facility] [address] [place], [place] [id number] documented as of this encounter Procedures Procedure Name Priority Date/Time Associated Diagnosis Comments PAP SMEAR Routine 12/10/2024 12:00 AM EDT documented in this encounter Results * Pap Smear (12/10/2024 12:00 AM EDT) Swab Cervical swab / Unknown [place] [facility] Ob LAB CYTOLOGY ORDERABLES Final Result EXTERNAL LAB documented in this encounter Visit Diagnoses Not on filedocumented in this encounter Care Teams Enterprise Application Administrator Relationship Specialty Start Date End Date Judy Caal PCP - [facility] FORGING DIES FINAL FINISHER 02/20/24 documented as of this encounter
--- OUTSIDE RECORDS SUMMARY | 2025-05-23 14:13 | XMS_ITS | Clinical Summary ---
Author Organization [facility] Healthcare Address [address] [place] [address] Care Team Providers Care Pullman Clerk Name Role Phone Judy Caal Unavailable Unavailable Allergies No known active allergies Medications sertraline (Zoloft) 25 MG tablet Take 50 mg by mouth 1 (one) time each day at the same time 11/07/19 25 Active labetalol (Normodyne) 200 MG tabletIndications: Second trimester ([facility]),Gestatio nal hypertension, antepartum ([facility]) TAKE 1 TABLET (200 MG) BY MOUTH IN THE MORNING AND AT BEDTIME 60 tablet 2 05/16/20 25 Active magnesium oxide (Mag-Ox) 400 MG tabletIndications: Second trimester ([facility]),Acute nonintractable headache, unspecified headache type Take 1 tablet (400 mg) by mouth Daily 30 tablet 6 03/28/20 25 025 labetalol (Normodyne) 200 MG tabletIndications: Second trimester ([facility]),Gestatio nal hypertension, antepartum ([facility]) Take 1 tablet (200 mg) by mouth in the morning and 1 tablet (200 mg) before bedtime. 60 tablet 04/11/20 25 025 Discontinued metroNIDAZOLE (Flagyl) 500 MG tabletIndications: BV (bacterial vaginosis) Take 1 tablet (500 mg) by mouth in the morning and 1 tablet (500 mg) before bedtime. Do all this for 7 days. Do not drink alcohol while taking this medication. 14 tablet 04/26/20 25 025 Active Problems Problem Noted Date Diagnosed Date induced hypertension, antepartum ([facility]) 04/25/2025 Fallopian tube disorder 07/30/2024 PCOS (polycystic ovarian syndrome) 07/30/2024 Estimated Date of Delivery Comme nts Yes 10/02/2025 Based on last me nstrual period of 12/26/2024 Encounters Date Type Department Care Team Description 05/22/2025 Travel 05/20/2025 Abstract [facility] [address] [place] [address] [place] 05/17/2025 External Result Encounter [facility] [address] [place] [address] Israel Broderick DO 05/15/2025 Refill [facility] [address] [place] [address] Israel Broderick DO Second trimester ([facility]); Gestational hypertension, antepartum ([facility]) 05/15/2025 Telephone [facility] [address] [place] [address] Israel Broderick DO 04/26/2025 Abstract [facility] [address] [place] [address] [place] 04/26/2025 Telephone [facility] [address] [place] [address] [place], [place] 04/25/2025 11:10 AM EDT Routine [place] [address] Israel Broderick DO Screening, , for anatomic survey ([facility]); Second trimester ([facility]); 17 weeks gestation of ([facility]); Screen for STD (sexually transmitted disease); Need for maternal serum alpha-protein (MSAFP) screening ([facility]); induced hypertension, [facility] Vitamin D deficiency 04/25/2025 Bamboo flowsheet [facility] [address] [address] Israel Broderick, DO 04/23/2025 Travel 04/21/2025 Clinisync Result Encounter NOMS External Department Unsolicited Israel Broderick, DO 04/17/2025 Clinisync Result Encounter NOMS External Department Unsolicited Israel Broderick, DO 04/11/2025 10:30 AM EDT Routine [facility] [address] [place] [address] Israel Broderick, DO 15 weeks gestation of ([facility]); Second trimester ([facility]); Acute nonintractable headache, unspecified headache type; BP check; Gestational hypertension, antepartum ([facility]); induced hypertension, antepartum ([facility]) 04/11/2025 Bamboo flowsheet [facility] [address] [place] [address] Israel Broderick, DO 03/28/2025 11:40 AM EDT Routine [facility] [address] [place] [address] Israel Broderick, DO 13 weeks gestation of ([facility]); Second trimester ([facility]); Acute nonintractable headache, unspecified headache type 03/28/2025 Bamboo flowsheet [facility] [address] [place] [address] Israel Broderick, 03/21/2025 Telephone [facility] Jerome [facility] [place] [address] [phone] Bethany Simon PA 03/20/2025 Clinisync Result Encounter NOMS External Department Unsolicited Israel Broderick, DO 03/01/2025 9:30 AM EDT Initial [facility] [address] [facility] [place] [address] GA: 9w2d 03/01/2025 9:00 AM EDT Ancillary Procedure [facility] [address] [place] [address] Missed menses 02/22/2025 Travel from Last 3 Months Family History Medical [...] Sign Reading Time Taken Comments Blood Pressure 138/82 04/25/2025 11:30 AM EDT Pulse - - Temperature - - Respiratory Rate - - Oxygen Saturation - - Inhaled Oxygen Concentration - - Weight 128 kg (282 lb) 04/25/2025 11:30 AM EDT Height 172.7 cm (5' 8 ) 06/11/2024 2:39 PM EDT Body Mass Index 42.88 06/11/2024 2:39 PM EDT Plan of Treatment Upcoming Encounters Date Type Department Care Team (Late st Contact Info) Description 05/23/2025 2:30 PM EDT Routine [facility] [address] [place] [address] [place] [address] Rosie Qiu, MANAGER [employer] [address] [place] [address] 12/16/2025 3:00 PM EDT Office Visit [facility] [address] [facility] [place] [address] Israel Broderick DO [address] [place] [address] Health Maintenance Due Date Last Done Comments Influenza Vaccine (#1) 2025 HPV/Cotest 11/24/2027 11/23/2022 Cervical Cancer Screening 12/11/2027 Pap Smear 12/11/2027 12/10/2024, 11/19/2022 Procedures Procedure Name Priority Date/Time Associated Diagnosis Comments US OB 14+ WEEKS ANATOMY SCAN 05/17/2025 4:39 PM EDT RECURRENT VAGINITIS (HTRX) Routine 04/25/2025 3:21 PM EDT POCT URINALYSIS DIPSTICK Routine 04/25/2025 11:38 AM EDT Second trimester ([facility]) TBH TOTAL PROTEIN 24 HOUR URINE Routine 04/21/2025 7:00 AM EDT ALL LDH Routine 04/17/2025 1:21 PM EDT C[facility] AST Routine 04/17/2025 1:21 PM EDT ALL URIC ACID Routine 04/17/2025 1:21 PM EDT TBH CREATININE Routine 04/17/2025 1:21 PM EDT ALL BUN Routine 04/17/2025 1:21 PM EDT [facility]CF APTT Routine 04/17/2025 1:21 PM EDT [facility] PROTHROMBIN TIME INR W/O COUM Routine 04/17/2025 1:21 PM EDT ALL CBC WITH AUTO DIFF Routine 04/17/2025 1:21 PM EDT POCT URINALYSIS DIPSTICK Routine 04/11/2025 11:06 AM EDT 15 weeks gestation of ([facility]) Second trimester ([facility]) POCT URINALYSIS DIPSTICK Routine 03/28/2025 11:44 AM EDT 13 weeks gestation of ([facility]) Second trimester ([facility]) HBSAG SCREEN Routine 03/20/2025 12:48 PM EDT RAPID PLASMA REAGIN, QUANT Routine 03/20/2025 12:48 PM EDT HIV AB/P24 AG WITH REFLEX Routine 03/20/2025 12:48 PM EDT HCV ANTIBODY RFX TO QUANT PCR Routine 03/20/2025 12:48 PM EDT ALL RUBELLA IGG AB Routine 03/20/2025 12 :48 PM EDT ALL TYPE AND SCREEN Routine 03/20/2025 1 2:48 PM EDT MLR HEMOGLOBIN A1C Routine 03/20/2025 12 :48 PM EDT ALL CBC WITH AUTO DIFF Routine 03/20/2025 12:48 PM EDT TBH DRUG SCREEN RAPID (URINE) Routine 03/20/2025 12:33 PM EDT POCT URINALYSIS DIPSTICK Routine 03/01/2025 10:11 AM EDT Missed menses POCT , URINE Routine 03/01/2025 10:10 AM EDT Missed menses US OB TRANSVAGINAL Routine 03/01/2025 9: 24 AM EDT Missed menses PAP SMEAR Routine 12/10/2024 12:00 AM EDT from Last 3 Months or Most Recently Relevant to Health Maintenance Results * US OB 14+ weeks anatomy scan (05/17/2025 4:39 PM EDT) Anatomical Region Laterality Modality Body Ultrasound 05/17/2025 4:39 PM EDT Narrative 05/17/2025 4:39 PM EDT THIS EXAM WAS PERFORMED AT [facility] NAME: PAULA HUGHES : 1990 SEX: F Accession Number: [id number] ORDERING PHYSICIAN: ISRAEL BRODERICK REFERRING PHYSICIAN: ISRAEL BRODERICK Coding ----- --------- Procedures 99231: Ultrasound, uterus, real time with image documentation, and maternal evaluation plus detailed anatomic examination, transabdominal approach;single or first gestation 27491: Ultrasound, uterus, real time with image documentation, transvaginal Indication ----- --------- Screening for Anatomic Survey , Screening for cervical length , Anxiety , Depression , Gestational hypertension without significant proteinuria , Obesity in , History of gestational hypertension. History ----- --------- OB History 2. Para 1 [id number] Maternal Assessment ----- --------- Physical Exam Height [...] EFW (oz) 13 oz EFW by: Hadlock ([id number]) Extended Tibia 23.0 mm 18w 1d 2% [...] Heart/Thorax: RVOT view. LVOT view. 3-vessel view. 1-lalwgb-ccyczhx view. Situs. Bicaval view. Cardiac position. Cardiac [...] cyst noted. Recommendations ----- --------- Please see [facility] documentation from today. The patient is scheduled in four to six week(s) to complete anatomic survey. Subsequent follow up or other follow up as clinically determined by primary OB provider unless otherwise specified by MFM. Results forwarded to ordering provider so they can follow up with the patient as necessary. Procedure Note Radiology, Radiologist, - 05/17/2025 THIS EXAM WAS PERFORMED AT [facility] NAME: PAULA HUGHES : 1990 SEX: F Accession Number: [id number] ORDERING PHYSICIAN: ISRAEL BRODERICK REFERRING PHYSICIAN: ISRAEL BRODERICK Coding ----- --------- Procedures [id number]: Ultrasound, uterus, real time with imagedocumentation, and maternal evaluation plus detailed anatomic examination, transabdominalapproach;single or first gestation 19069: Ultrasound, uterus, real time with imagedocumentation, transvaginal Indication ----- --------- Screening for Anatomic Survey , Screening for cervical length , Anxiety ,Depression , Gestational hypertension without significant proteinuria , Obesity in , History of gestationalhypertension. History ----- --------- OB History 2. Para 1 [id number] Maternal Assessment ----- --------- Physical Exam Height [...] EFW (oz) 13 oz EFW by: Hadlock ([id number]) Extended Tibia 23.0 mm 18w 1d 2% [...] Heart/Thorax: RVOT view. LVOT view. 3-vessel view. 5-rqhrml-dpetejr view.Situs. Bicaval view. Cardiac position. Cardiac axis. [...] cyst noted. Recommendations ----- --------- Please see M documentation from today. The patient is scheduled in four to six week(s) to complete anatomicsurvey. Subsequent follow up or other follow up as clinically determined byprimary OB provider unless otherwise specified by MFM. Results forwarded to ordering provider so they can follow up with thepatient as necessary. us Israel Broderick DO IMG OB US PROCEDURES Final Resul t * (ABNORMAL) RECURRENT VAGINITIS (HTRX) (04/25/2025 3:21 PM EDT) [facility] ATOPOBIUM VAGINAE 0 19.961 - 24.689 ppm 04/26/2025 6:40 AM EDT [facility] ATOPOBIUM VAGINAE Not Detected 19.961 - 24.689 ppm 04/26/2025 6:40 AM EDT [facility] BVAB 2,3 (BACTERIAL VAGINOSIS ASSOCIATED BACTERIA 2, 3); MOBILUNCUS SPP 24.556(A) 19.961 - 24.689 ppm 04/26/2025 6:40 AM EDT [facility] BVAB 2,3 (BACTERIAL VAGINOSIS ASSOCIATED BACTERIA 2, 3); MOBILUNCUS SPP Detected(A) 19.961 - 24.689 ppm 04/26/2025 6:40 AM EDT [facility] DON ALBICANS, PARAPSILOSIS, TROPICALIS 0 23.000 - 30.347 ppm 04/26/2025 6:40 AM EDT [facility] DON ALBICANS, PARAPSILOSIS, TROPICALIS Not Detected 23.000 - 30.347 ppm 04/26/2025 6:40 AM EDT [facility] DON GLABRATA 0 23.000 - 31.618 ppm 04/26/2025 6:40 AM EDT [facility] DON GLABRATA Not Detected 23.000 - 31.618 ppm 04/26/2025 6:40 AM EDT [facility] DON KRUSEI 0 23.000 - 30.873 ppm 04/26/2025 6:40 AM EDT [facility] DON KRUSEI Not Detected 23.000 - 30.873 ppm 04/26/2025 6:40 AM EDT [facility] CHLAMYDIA TRACHOMATIS 0 23.000 - 31.586 ppm 04/26/2025 6:40 AM EDT [facility] CHLAMYDIA TRACHOMATIS Not Detected 23.000 - 31.586 ppm 04/26/2025 6:40 AM EDT [facility] GARDNERELLA VAGINALIS 0 19.961 - 24.689 ppm 04/26/2025 6:40 AM EDT [facility] GARDNERELLA VAGINALIS Not Detected 19.961 - 24.689 ppm 04/26/2025 6:40 AM EDT [facility] MEGASPHAERA (TYPES 1, 2) 0 19.961 - 24.689 ppm 04/26/2025 6:40 AM EDT [facility] MEGASPHAERA (TYPES 1, 2) Not Detected 19.961 - 24.689 ppm 04/26/2025 6:40 AM EDT [facility] NEISSERIA GONORRHOEAE 0 23.000 - 32.587 ppm 04/26/2025 6:40 AM EDT [facility] NEISSERIA GONORRHOEAE Not Detected 23.000 - 32.587 ppm 04/26/2025 6:40 AM EDT [facility] TRICHOMONAS VAGINALIS 0 23.000 - 31.995 ppm 04/26/2025 6:40 AM EDT [facility] TRICHOMONAS VAGINALIS Not Detected 23.000 - 31.995 ppm 04/26/2025 6:40 AM EDT [facility] MYCOPLASMA GENITALIUM 0 19.961 - 24.689 ppm 04/26/2025 6:40 AM EDT [facility] MYCOPLASMA GENITALIUM Not Detected 19.961 - 24.689 ppm 04/26/2025 6:40 AM EDT [facility] Tissue 04/25/2025 3:21 PM EDT 04/26/2025 1:52 AM EDT us Israel Davie DO LAB BLOOD ORDERABLES Final Resul t [facility] [address] [place] [id number] * POCT urinalysis dipstick manually resulted (04/25/2025 11:38 AM EDT) Only the most recent of4 resultswithin the time period is included. Color, UA Yellow Clarity, UA Clear Glucose, UA Negative Negative - 1999(110) ++++ mg/dL Bilirubin, UA Negative Negative - 4(70) +++ mg/dL Ketones, UA Negative Negative - 160(16) ++++ mg/dL Spec Grav, UA 1.015 1 - 1.03 Blood, UA Negative Negative - 50 Surjit/mcL pH, UA 6.0 5 - 9 Protein, UA Negative Negative - 1999(20) ++++ mg/dL Urobilinogen, UA 1.0 0.2 - 12 mg/dL Leukocytes, UA Negative Negative - 500+++ Kaleigh/mcL Nitrite, UA Negative Negative - Positive Urine 04/25/2025 11:3 8 AM EDT us Israel Davie DO POINT OF CARE TEST ENTER/EDIT OR DERABLES Final Result * TB TOTAL PROTEIN 24 HOUR URINE (04/21/2025 7:00 AM EDT) TOTAL PROTEIN URINE RANDOM <6.0 <=11.9 mg/dL TBH TOTAL VOLUME 24 HOUR URINE 2,500 mL/24hr TB 04/21/2025 7:00 AM EDT 04/21/2025 9:25 AM EDT Narrative [facility] - 04/21/2025 1:50 PM EDT us Israel Davie DO CLINISYNC Final Result [facility] TB * TBH CREATININE (04/17/2025 1:21 PM EDT) CREATININE 0.56 0.55 - 1.02 mg/dL TBH TBH EGFR-AF TRINIDADIAN >60 >=60 mL/min/1.7 3m 2 TBH TBH EGFR-NON AF TRINIDADIAN >60 >=60 mL/min/1.7 3m 2 TBH 04/17/2025 1:21 PM EDT 04/17/2025 1:22 PM EDT Narrative [facility] - 04/17/2025 1:56 PM EDT [facility] Davie DO CLINISYNC Final Result Performing Organization Address [facility] Co de Phone Number [facility] * [facility] PROTHROMBIN TIME INR W/O COUM (04/17/2025 1:21 PM EDT) PROTHROMBIN TIME 10.1 9.0 - 11.6 sec TB TB INR 0.95 TBH Comment: DESIRED INR: 2.0-3.0 CONDITIONS NOT LISTED BELOW 2.5-3.5 FOR PROSTHETIC HEART VALVE REPLACEMENT 2.5-3.5 RECURRENT THROMBOSIS 04/17/2025 1:21 PM EDT 04/17/2025 1:22 PM EDT Narrative CLINISY[facility] - 04/17/2025 1:54 PM EDT [facility] Davie DO CLINISYNC Final Result Performing Organization Address [facility] Co de Phone Number [facility] * [facility] AST (04/17/2025 1:21 PM EDT) ASPARTATE AMINO TRANSFERASE 20 15 - 37 U/L TB 04/17/2025 1:21 PM EDT 04/17/2025 1:22 PM EDT Narrative CLINISYNC - 04/17/2025 1:56 PM EDT [facility] Davie DO CLINISYNC Final Result Performing Organization Address [facility]/ZIP Co de Phone Number [facility] * [facility] APTT (04/17/2025 1:21 PM EDT) PARTIAL THROMBOPLASTIN TIME 26.5 22.3 - 36.2 sec TB 04/17/2025 1:21 PM EDT 04/17/2025 1:22 PM EDT Narrative [facility] - 04/17/2025 1:54 PM EDT Israel Davie DO CLINISYNC Final Result Performing Organization Address [facility]/ZIP Co de Phone Number [facility] * ALL URIC ACID (04/17/2025 1:21 PM EDT) URIC ACID 5.1 2.6 - 6.0 mg/dL TB 04/17/2025 1:21 PM EDT 04/17/2025 1:22 PM EDT Narrative CL[facility] - 04/17/2025 1:56 PM EDT Israel Davie DO CLINISYNC Final Result Performing Organization Address [facility] Co de Phone Number [facility] * ALL LDH (04/17/2025 1:21 PM EDT) LACTATE DEHYDROGENASE 117 81 - 234 U/L TB 04/17/2025 1:21 PM EDT 04/17/2025 1:22 PM EDT Narrative [facility] - 04/17/2025 1:56 PM EDT Israel Davie DO CLINISYNC Final Result Performing Organization Address [facility] Co de Phone Number [facility] * (ABNORMAL) ALL CBC WITH AUTO DIFF (04/17/2025 1:21 PM EDT) Only the most recent of2 resultswithin the time period is included. TB WBC 13.0(H) 4.0 - 11.0 10 3/uL TBH TBH RBC 3.80(L) 4.20 - 5.40 10 6/uL TBH TBH HGB 11.9(L) 12.0 - 16.0 g/dL TB TBH HCT 35.4(L) 36.0 - 48.0 % TBH TBH MCV 93.2 81.0 - 99.0 fL TBH TBH MCH 31.3 26.7 - 34.0 pg TBH [...] Narrative CLINISYNC - 04/17/2025 1:31 PM EDT us Israel Broderick DO CLINISYNC Final Result [facility] * ALL BUN (04/17/2025 1:21 PM EDT) BLOOD UREA NITROGEN 7.0 7.0 - 18.0 mg/dL TBH 04/17/2025 1:21 PM EDT 04/17/2025 1:22 PM EDT Narrative CLINISYNC - 04/17/2025 1:56 PM EDT us Israel Davie DO CLINISYNC Final Result Performing Organization Address [facility] Co de Phone Number [facility] * HBSAG SCREEN (03/20/2025 12:48 PM EDT) Pathologist [facility] HBSAG SCREEN Negative Negative [facility] Comment: Performed at: [address] [id number] [employer] Software Engineer: Yobany Blount PhD, Phone: [phone] 03/20/2025 12:4 8 PM EDT 03/20/2025 12:51 PM EDT Narrative CLINISYNC - 03/21/2025 11:11 AM EDT Israel Davie DO LAB BLOOD ORDERABLES Final Resul t Performing Organization Address [facility] de Phone Number [facility] * RAPID PLASMA REAGIN, QUANT (03/20/2025 12:48 PM EDT) Pathologist [facility] RAPID PLASMA REAGIN, QUANT Non Reactive NonRea<1: 1 titer [facility] Comment: Please Note: This test does not meet current guidelines for screening and diagnosis of syphilis. This test is intended for following treatment response in patients being treated for syphilis infection. To screen for syphilis infection, a reflex cascade that includes both RPR and a treponema-specific assay should be utilized, such as Treponema pallidum (Syphilis) Screening [place] (129768) or Rapid Plasma Reagin (RPR) Test With Reflex to Quantitative RPR and Confirmatory Treponema pallidum Antibodies ([id number]). Performed at: [address] [id number] [employer] Software Engineer: Yobany Blount PhD, Phone: [phone] 03/20/2025 12:4 8 PM EDT 03/20/2025 12:51 PM EDT Narrative CLINISYNC - 03/21/2025 11:11 AM EDT us Israel Davie DO LAB BLOOD ORDERABLES Final Resul t Performing Organization Address [facility] Co de Phone Number [facility] * HIV AB/P24 AG WITH REFLEX (03/20/2025 12:48 PM EDT) Pathologist [facility] HIV AB/P24 AG SCREEN Non Reactive Non Reactive [facility] Comment: HIV-1/HIV-2 antibodies and HIV-1 p24 antigen were NOT detected. There is no laboratory evidence of HIV infection. HIV Negative Performed at: [facility] [id number] [employer] Software Engineer: Yobany Blount PhD, Phone: [phone] 03/20/2025 12:4 8 PM EDT 03/20/2025 12:51 PM EDT Narrative [facility] - 03/21/2025 5:07 AM EDT Israel Davie DO LAB BLOOD ORDERABLES Final Resul t Performing Organization Address [facility] de Phone Number [facility] * HCV ANTIBODY RFX TO QUANT PCR (03/20/2025 12:48 PM EDT) [facility] HCV AB Non Reactive Non Reactive [facility] INTERPRETATION: Comment . [facility] Comment: Not infected with HCV unless early or acute infection is suspected (which may be delayed in an immunocompromised individual), or other evidence exists to indicate HCV infection. 03/20/2025 12:4 8 PM EDT 03/20/2025 12:51 PM EDT Narrative [facility] - 03/21/2025 5:07 AM EDT us Israel Davie DO LAB BLOOD ORDERABLES Final Resul t Performing Organization Address [facility] Co de Phone Number [facility] * MLR HEMOGLOBIN A1C (03/20/2025 12:48 PM EDT) [facility] GLYCOHEMOGLOBIN A1C 5.1 4.5 - 6.2 % [facility] Comment: ADA RECOMMENDED LIMIT 4.0 - 6.0 ADA THERAPEUTIC TARGET < 7.0 ACTION SUGGESTED > 7.0 ESTIMATED AVERAGE GLUCOSE 100 mg/dL TBH 03/20/2025 12:4 8 PM EDT 03/20/2025 12:51 PM EDT Narrative [facility] - 03/20/2025 2:20 PM EDT Isarel Davie DO CLINISYNC Final Result Performing Organization Address [facility]/ZIP Co de Phone Number [facility] * ALL TYPE AND SCREEN (03/20/2025 12:48 PM EDT) Pathologist [facility] BLOOD TYPE B Positive TBH ANTIBODY SCREEN NEGATIVE TBH 03/20/2025 12:4 8 PM EDT 03/20/2025 12:51 PM EDT Narrative [facility]IN[facility] - 03/20/2025 2:38 PM EDT [facility] Davie DO CLINISYNC Final Result Performing Organization Address [facility] Co de Phone Number [facility] * ALL RUBELLA IGG AB (03/20/2025 12:48 PM EDT) Pathologist [facility] RUBELLA ANTIBODIES, IGG 1.99 Immune >0.99 index TBH Comment: Non-immune <0.90 Equivocal 0.90 - 0.99 Immune >0.99 Performed at: [facility] [id number] [employer] Software Engineer: Yobany Blount PhD, Phone: [phone] 03/20/2025 12:4 8 PM EDT 03/20/2025 12:51 PM EDT Narrative CLINISYNC - 03/21/2025 5:07 AM EDT [facility] Davie DO CLINISYNC Final Result Performing Organization Address [facility] Co de Phone Number [facility] * TBH DRUG SCREEN RAPID (URINE) (03/20/2025 12:33 PM EDT) Pathologist [facility] CANNABINOID SCREEN URINE NEGATIVE NEGATIVE TBH PHENCYCLIDINE SCREEN URINE NEGATIVE NEGATIVE TBH COCAINE SCREEN URINE NEGATIVE NEGATIVE TBH METHAMPHETAMINES SCREEN URINE NEGATIVE NEGATIVE TBH OPIATE SCREEN URINE NEGATIVE NEGATIVE TBH AMPHETAMINE SCREEN URINE NEGATIVE NEGATIVE TBH BENZODIAZEPINES SCREEN URINE NEGATIVE NEGATIVE TBH TRICYCLIC ANTIDEPRESSANT URINE NEGATIVE NEGATIVE TBH METHADONE SCREEN URINE NEGATIVE NEGATIVE TBH BARBITURATES SCREEN URINE NEGATIVE NEGATIVE TBH OXYCODONE SCREEN URINE NEGATIVE NEGATIVE TBH BUPRENORPHINE SCREEN URINE NEGATIVE NEGATIVE TBH Comment: DRUG CLASS TEST SYSTEM CUT-OFF CONCENTRATIONS ARE FOLLOWS: AMP (Amphetamine): 500 ng/mL BAR (Barbiturates): 200 ng/mL BZO (Benzodiazepines): 150 ng/mL BUP (Buprenorphine): 10 ng/mL CLAY (Cocaine): 150 ng/mL mAMP (Methamphetamine): 500 ng/mL MTD (Methadone): 200 ng/mL OPI (Opiates): 100 ng/mL OXY (Oxycodone): 100 ng/mL PCP (Phencyclidine): 25 ng/mL THC (Cannabinoids): 50 ng/mL TCA (Trycyclic Antidepressants): 300 ng/mL 03/20/2025 12:3 3 PM EDT 03/20/2025 12:58 PM EDT Narrative CLINISYNC - 03/20/2025 2:02 PM EDT Israel Davie DO CLINISYNC Final Result [facility] * (ABNORMAL) POCT , urine manually resulted (03/01/2025 10:10 AM EDT) Preg Test, Ur Positive Negative Urine 03/01/2025 10:1 0 AM EDT us Israel Davie DO POINT OF CARE TEST ENTER/EDIT [...] ELECTRONICALLY SIGNED BY: Mariusz Altamirano MD us Israel Davie DO IMG OB US PROCEDURES Final Resul t * Pap Smear (12/10/2024 12:00 AM EDT) Swab Cervical swab / Unknown us Davie Nurse [facility] Ob LAB CYTOLOGY ORDERABLES Final Result EXTERNAL LAB from Last 3 Months or Most Recently Relevant to Health Maintenance Insurance [employer] [employer] [place] Care Teams Pullman Clerk Relationship Specialty Start Date End Date Judy Caal PCP - [facility] 02/20/24
--- OUTSIDE RECORDS SUMMARY | 2025-05-23 14:14 | XMS_ITS | Encounter Summary ---
Author Organization [facility] Address [address] [place] [address] Care Team Providers Care Grain Roaster Name Role Phone Judy Caal Unavailable Unavailable Encounter Details Date Type Department Care Team (Late st Contact Info) Description 06/21/2024 Abstract LIANA HEAD [address] [place] [address] Caesar Broderick DO [address] [place], [facility] Social History Tobacco Use Types Packs/Day [...] 2:30 PM EDT Routine LIANA HEAD [address] [facility] [place] [address] Rosie Qiu, JEM [address] [place] [address] 12/16/2025 3:00 PM EDT Office Visit LIANA HEAD [address] [place] [address] Caesar Broderick DO [address] [place] [address] documented as of this encounter Visit Diagnoses Not on filedocumented in this encounter Care Teams Grain Roaster Relationship Specialty Start Date End Date Judy Caal PCP - [facility] Rosey [employer] CONCRETE BATCHER 02/20/24 documented as of this encounter
--- OUTSIDE RECORDS SUMMARY | 2025-05-23 14:14 | XMS_ITS | Encounter Summary ---
Author Organization [facility] Address [address] [place] [address] Care Team Providers Care Director Motion Picture Name Role Phone Judy Caal Unavailable Unavailable Encounter Details Date Type Department Care Team (Late st Contact Info) Description 07/05/2024 Abstract LIANA HEAD [address] [facility] [place] [address] Karoline Casillas LPN Social History Tobacco [...] 2:30 PM EDT Routine LIANA HEAD [address] [place] [address] Rosie Qiu, JEM [address] [facility] [place] [address] 12/16/2025 3:00 PM EDT Office Visit LIANA HEAD [address] [place] [address] Caesar Broderick DO [address] [facility] [address] [place], [place] [id number] documented as of this encounter Visit Diagnoses Not on filedocumented in this encounter Care Teams Director Motion Picture Relationship Specialty Start Date End Date AlexeyolmanLimasa PCP - [facility] Rosey SEAT COVERS TRIMMER 02/20/24 documented as of this encounter
--- OUTSIDE RECORDS SUMMARY | 2025-05-23 14:14 | XMS_ITS | Encounter Summary ---
Author Organization [facility] tem Address [id number] [address] [place] [address] Care Team Providers Care Prefinish Operator Name Role Phone Services, [facility] Primary Care Provider Encounter Details Date Type Department Care Team (Late Contact Info) Description 03/21/2024 Orders Only [facility] [address] [place] [address] External, Scanning Provider Social History Tobacco Use [...] Info) Description 06/18/2025 8:00 AM EDT Appointment [facility] - Ultrasound [address] [place] [phone] 06/18/2025 2:00 PM EDT Telemedicine Maternal- Medicine at [facility] [address] [place] [address] Sheila Cruz MD [address] 1st [place] [address] documented as of this encounter Procedures Procedure Name Priority Date/Time Associated Diagnosis Comments MULTIPLE LABS Routine 03/21/2024 11:19 AM EDT LIPID PROFILE Routine 03/21/2024 documented in this encounter Results * Multiple labs (03/21/2024 11:19 AM EDT) us Scanning Provider External MA IMAGING Final Result MANUALLY TRANSCRIBED RESULTS * Lipid profile (03/21/2024) External Cholesterol 153 MANUALLY TRANSCRIBED RESULTS External Cholesterol:Hdl 3.6 MANUALLY TRANSCRIBED RESULTS External Hdl Cholesterol 43 MANUALLY TRANSCRIBED RESULTS External Ldl (Calc) 82 MANUALLY TRANSCRIBED RESULTS External Triglycerides 140 MANUALLY TRANSCRIBED RESULTS Ldl/Hdl Ratio 1.9 MANUAL LY TRANSCRIBED RESULTS us Scanning Provider External LAB BLOOD ORDERABLES Edited Result - Final MANUALLY TRANSCRIBED RESULTS documented in this encounter Visit Diagnoses Not on filedocumented in this encounter Care Teams Prefinish Operator Relationship Specialty Start Date End Date Services, [facility] [address] [place] PCP - General Family Medicine 11/03/24 documented as of this encounter
--- OUTSIDE RECORDS SUMMARY | 2025-05-23 14:14 | XMS_ITS | Encounter Summary ---
Author Organization [facility] Address [address] [place] [address] Care Team Providers Care Candy Cutter Hand Name Role Phone Judy Caal Unavailable Unavailable Encounter Details Date Type Department Care Team (Late st Contact Info) Description 04/25/2024 Clinisync Result Encounter NOMS External Department Unsolicited Israel Broderick, DO [address] [place], [facility] Social History Tobacco Use Types Packs/Day [...] 05/23/2025 2:30 PM EDT Routine NOMT[facility] HEAD [address] [place] [address] [place] [address] Rosie Qiu, JEM [address] [place] [address] 12/16/2025 3:00 PM EDT Office Visit [facility] HEAD [address] [place] [address] Israel Broderick DO [address] [place], [place] [address] documented as of this encounter Procedures Procedure Name Priority Date/Time Associated Diagnosis Comments US PELVIS W/ TRANSVAGINAL 04/25/2024 6:34 AM EDT documented in this encounter Results * US PELVIS W/ TRANSVAGINAL (04/25/2024 6:34 AM EDT) Anatomical Region Laterality Modality Other 04/25/2024 6:34 AM EDT Narrative 04/25/2024 6:37 [place] [address] Ultrasound Report Signed Patient: ELLEN RAMIRES MR#: [id number] : 1990 Acct:[id number] Age/Sex: 34 / F ADM Date: 04/24/24 Loc: US Attending Dr: Israel Broderick D.O. Ordering Physician: Israel Broderick D.O. Date of Service: 04/24/24 Procedure(s): US pelvis w/ transvaginal Accession Number(s): [id number] cc: Israel Broderick D.O.; Sabiha Aviles NP [place] [id number] Patient Name: ELLEN RAMIRES MRN: [id number] date: 1990 Sex: F Assigned Patient Location: Current Patient Location: Accession/Order Number: [id number] Exam Date: 04/24/2024 14:00 Report Date: 04/25/2024 [...] Michael Dean M.D. Signed By: 04/25/2437 DD/ TD/TT: Veneer Production Machine Operator: Procedure Note Radiology, Radiologist, MD - 04/25/2024 [place] [address] Ultrasound Report Signed Patient: ELLEN RAMIRES R#: [id number] : 1990Acct:[id number] Age/Sex: 34 / FADM Date: 04/24/24 Loc: US Attending Dr: Israel Broderick D.O. Ordering Physician: Israel Broderick D.O. Date of Service: 04/24/24 Procedure(s): US pelvis w/ transvaginal Accession Number(s): [id number] cc: Israel Broderick D.O.; Sabiha Aviles MOTOR EXPRESS CLERK [place] [id number] Patient Name: ELLEN RAMIRES MRN: [id number] date: 1990 Sex: F Assigned Patient Location: Current Patient Location: Accession/Order Number: [id number] Exam Date: 04/24/2024 14:00 Report Date: 04/25/2024 [...] M.D. Signed By:04/25/24 0637 DD/ 0634 TD/TT: Veneer Production Machine Operator: us Israel Davie DO [facility] IMAGING Final Result documented in this encounter Visit Diagnoses Not on filedocumented in this encounter Care Teams Candy Cutter Hand Relationship Specialty Start Date End Date Judy Caal PCP - [facility] 02/20/24 documented as of this encounter
--- OUTSIDE RECORDS SUMMARY | 2025-05-23 14:14 | XMS_ITS | Encounter Summary ---
Author Organization [facility] tem Address [facility] [id number] [address] [place] [address] Care Team Providers Care Tip Stretcher Name Role Phone Services, [facility] Primary Care Provider Encounter Details Date Type Department Care Team (Late Contact Info) Description 05/17/2025 Results Follow-Up Maternal- Medicine at [facility] [address] [place] [phone] Sheila Cruz MD [address] [facility] 1st [place] [address] B-type natriuretic peptide Social History Tobacco Use Types Packs/Day Years [...] Department Care Team (Late Contact Info) Description 06/18/2025 8:00 AM EDT Appointment [facility] - Ultrasound [address] [place] [address] 06/18/2025 2:00 PM EDT Telemedicine Maternal- Medicine at [facility] [address] [place] [phone] Sheila Cruz MD [address] [facility] 1st [place] [address] documented as of this encounter Visit Diagnoses Not on filedocumented in this encounter Care Teams Tip Stretcher Relationship Specialty Start Date End Date Services, [facility] [address] [facility] [place] [place] PCP - General Family Medicine 11/03/24 documented as of this encounter
--- OUTSIDE RECORDS SUMMARY | 2025-05-23 14:14 | XMS_ITS | Encounter Summary ---
Author Organization [facility] Address [address] [place] [address] Care Team Providers Care Appliance Installer Name Role Phone Judy Caal Unavailable Unavailable Encounter Details Date Type Department Care Team (Late st Contact Info) Description 06/01/2024 Abstract LIANA HEAD [address] [place] [address] Caesar Broderick DO [address] [place], [facility]11 Social History Tobacco Use Types Packs/Day [...] 2:30 PM EDT Routine LIANA HEAD [address] [facility] [place] [address] Rosie Qiu, JEM [address] [place] [address] 12/16/2025 3:00 PM EDT Office Visit LIANA HEAD [address] [place] [address] Caesar Brodercik DO [address] [place], [facility] documented as of this encounter Visit Diagnoses Not on filedocumented in this encounter Care Teams Appliance Installer Relationship Specialty Start Date End Date Judy Caal PCP - [facility] Rosey AUTO SERVICE WRITER 02/20/24 documented as of this encounter
--- OUTSIDE RECORDS SUMMARY | 2025-05-23 14:14 | XMS_ITS | Encounter Summary ---
Author Organization [facility] tem Address [id number] [address] [place] [address] Care Team Providers Care Data Center Technician Name Role Phone Services, [facility] Primary Care Provider Encounter Details Date Type Department Care Team (Latest Contact Info) Description 05/15/2025 Travel Social History Tobacco Use Types Packs/Day Years Used Date Smoking Tobacco: Never Smokeless Tobacco: Never Alcohol Use Standard Drinks/Week Comments Not Currently 0 (1 standard drink = 0.6 oz pur e alcohol) Hunger Screening Answer Date Recorded Within the past 12 months we worried whether our food would run out before we got money to buy more. Never True 04/29/2025 Within the past 12 months th e food we bought just didn't last and we didn't have money to get more. Never True 04/29/2025 Estimated Date of Delivery Comme nts Yes [...] Info) Description 06/18/2025 8:00 AM EDT Appointment [facility] - Ultrasound [address] [place] [address] 06/18/2025 2:00 PM EDT Telemedicine Maternal- Medicine at [facility] [address] [place] [address] Sheila Cruz MD [address] [place] [address] documented as of this encounter Visit Diagnoses Not on filedocumented in this encounter Care Teams Data Center Technician Relationship Specialty Start Date End Date Services, [facility] [address] [place], [place] PCP - General Family Medicine 11/03/24 documented as of this encounter
--- OUTSIDE RECORDS SUMMARY | 2025-05-23 14:14 | XMS_ITS | Patient Health Record ---
Author Organization [facility] Address [address] [place], [place] [address] Care Team Providers Care Fabric Separator Operator Name Role Phone Sabiha Aviles Primary Care Provider Noelle Chris Unavailable [phone] MarleniLima sparkssa Unavailable [phone] Allergies No Known Allergies Results Component Value [...] UNLESS OTHERWISE INDICATED, ALL TESTING PERFORMED AT: [facility] [employer] [facility] [address] [place] [address] PROOF TECHNICIAN: BARBARA DASH M.D. CLIA NUMBER [id number] CAP ACCREDITATION AUID [id number] Urine Dip Reviewed date:11/12/2024 05:53:24 PM Interpretation: Performing Lab: Notes/Report: Bilirubin - Occult Blood - Glucose - Ketones - WBC - Nitrite - Ph 6.0 Protein - Specific [place] 1.010 Color yellow Appearance clear LIPID PANEL [...] Lab: Notes/Report: TSH 1.69 0.270-4.200 uIU/mL The [place] [employer] (HUGO) recommends the following reference [...] UNLESS OTHERWISE INDICATED, ALL TESTING PERFORMED AT: [facility] [employer] [address] [place] [address] PROOF TECHNICIAN: BARBARA DASH M.D. CLIA NUMBER [id number] CAP ACCREDITATION AUID [id number] Reason For Referral No Information Medications Medication SIG (Take, Route, Frequency, Duration) Notes Start Date End Date Status Aspirin Adult Low Dose 81 MG 1 [...] a day; Duration: 90 days 11/06/2024 Active Amoxicillin 500 MG 1 capsule Orally marichuy ry 8 hrs; Duration: 7 days 05/21/2025 Active Social History Tobacco Use: Social History Observation [...] Question Answer Notes Date Completed/Updated: 11/06/2024 lucas nt entered data What is your current housing situation? I have housing patient entered data Are you worried about losing your housing? No patient entered data What is the highest level of school that you have finished? 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 Stress is when someone feels tense, nervous, anxious, or can't sleep at night because their mind is troubled Quite a bit patient entered data In the past year have you sp ent more than 2 nights in a row in a prison, custodial, long term center, or juvenile correctional facility? No patient [...] Notes Problem Exercises teaching, guidance, and counseling (776144208) Exercise counseling (Z71.82) Active confirmed Problem Missed period (55821444) Missed period (N92.6) Active confirmed Problem Vitamin D deficiency (91015077) Vitamin D deficiency (E55.9) Active confirmed Problem Burning sensation of vagina (finding) (028486415) Vaginal burning (N94.9) Active confirmed Problem Anxiety depression (646043787) Anxiety with depression (F41.8) Active confirmed Problem Dietary management surveillance (121880040) Dietary counseling (Z71.3) Active confirmed Problem Female infertility (5340038) Female fertility problem (N97.9) Active confirmed Vital Signs Heart Rate 95 /min 05/21/2025 Ac Ser vando 05/21/2025 01:17:11 PM EDT > Temperature 98.0 degrees Fahrenheit 05/21/2025 Sonia Banegasando 05/21/2025 01:17:11 PM EDT > Respiratory Rate 18 /min 05/21/2025 Ac Dayron 05/21/2025 01:17:11 PM EDT > Blood pressure diastolic 85 mm Hg 05/21/2025 Jasmina manolo Dayron 05/21/2025 01:17:11 PM EDT > Oximetry 99 % 05/21/2025 Ac Ser vando 05/21/2025 01:17:11 PM EDT > Height-cm 172.72 cm 05/21/2025 Shen, Ser vando 05/21/2025 01:17:11 PM EDT > Weight-kg 128.82 kg 05/21/2025 Shen, Ser vando 05/21/2025 01:17:11 PM EDT > Height 68 in 05/21/2025 Shen, Ser vando 05/21/2025 01:17:11 PM EDT > Blood pressure systolic 141 mm Hg 05/21/2025 Tayo day Dayron 05/21/2025 01:17:11 PM EDT > Weight 284 lbs 05/21/2025 Robert Shen 05/21/2025 01:17:11 PM EDT > BMI 43.18 kg/m2 05/21/2025 Robert Shen 05/21/2025 01:17:11 PM EDT > Encounters Encounter Location Date Provider Diagnosis [address] [id number] 11/06/2024 [facility] Depression with anxi ety F41.8 and Hospital discharge follow-up Z09 [address] [place] [id number] 11/12/2024 [facility] [id number] 12/04/2024 [facility] Anxiety with depress ion F41.[address] [id number] 02/05/2025 [facility] Encounter for wellca ss examination Z00.00 ; Screening for cardiovascular condition Z13.6 ; Exercise counseling Z71.82 ; Nutritional counseling Z71.3 ; Screening for thyroid disorder Z13.29 and Vitamin D deficiency E55.9 [address] [place], [place] [id number] 05/21/2025 Judy Marleni Anxiety with depress ion F41.8 ; Left otitis media, unspecified otitis media type H66.92 ; 21 weeks gestation of Z3A.21 ; Severe obesity (BMI >= 40) E66.01 and BMI 40.0-44.9, adult Z68.41 [address] [place], [place] [phone] 04/26/2025 Noelle Chris Anxiety with depress ion F41.8 [address] [place], [place] [phone] 06/24/2024 Judy Marleni Assessments Encounter Date Diagnosis (ICD Code) Assessment [...] minimize the worsening of any cardiovascular conditions. 04/26/2025 Anxiety with depression (ICD-10 - F41.8) 05/21/2025 Left otitis media, unspecified otitis media type (ICD-10 - H66.92) Both ears WNL upon examination Pt reports ongoing pain in L ear for 4 weeks, denies allergies, hx of otiti media in adult life and feels similar RX sent at this time for Amoxicillin F/U PRN 05/21/2025 Anxiety with depression (ICD-10 - F41.8) Depression stable. Will continue current medications. Advised pt if they are have suicidal or homicidal to call 911 or go to the ER. F/u 3 months & PRN Continue following w/ OBGYN for 05/21/2025 21 weeks gestation of (ICD-10 - Z3A.21) 02/05/2025 Exercise counseling (ICD-10 - Z71.82) The [...] 11/06/2024 Hospital discharge follow-up (ICD-10 - Z09) 05/21/2025 Severe obesity (BMI >= 40) (ICD-10 - E66.01) 02/05/2025 Nutritional counseling (ICD-10 - Z71.3) The [...] that would best help their dietary needs. 05/21/2025 BMI 40.0-44.9, adult (ICD-10 - Z68.41) 02/05/2025 Screening for thyroid disorder (ICD-10 - Z13.29) 02/05/2025 Vitamin D deficiency (ICD-10 - E55.9) 02/05/2025 Other Plan Of Treatment Next Appt Details Provider Name:Judy Yepez , 08/20/2025 01:15:00 PM, [address] [place], [place], [phone], Insurance Providers Payer Name Payer Address Payer Phone Subscriber Number Group Number Insured Name Patient Relationship to Insured Coverage Start Date Coverage End Date [facility] [address] [place] [address] [id number] [id number] 1 RamiresEpifanioen Self - patient is the insured 3 Medicaid CFC after [place] [address] [place] [id number] Chayo Ramires Self - patient is the insured 3 Medical (General) History Medical History History ICD Code anxiety depression Surgical History Surgery Date(Month/Year) [place] teeth laparoscopy- endometriosis
--- OUTSIDE RECORDS SUMMARY | 2025-05-23 14:14 | XMS_ITS | Clinical Summary ---
Author Organization [facility] tem Address [id number] [address] [place] [address] Care Team Providers Care Oil Prospecting Observer Name Role Phone Services, [facility] Primary Care Provider Allergies No known active allergies Medications sertraline (ZOLOFT) 25 mg tablet Take 2 tablets (50 mg total) by mouth before bedtime. Active omeprazole (PriLOSEC) 20 mg capsule Take 1 capsule (20 mg total) by mouth in the morning. Active cholecalciferol 10 mcg (400 unit) tablet 2 tablets (800 Units total) in the morning. 01/26/20 24 Active magnesium oxide (MAGOX) 400 mg tablet Take 1 tablet (400 mg total) by mouth in the morning. Active sertraline (ZOLOFT) 25 mg tablet Take 2 tablets (50 mg total) by mouth before bedtime. 11/07/19 25 Active aspirin 81 mg Take 1 tablet (81 mg total) by mouth in the morning. Active 115/iron/folic acid ( 19 ORAL) Take 1 tablet by mouth in the morning. Active clobetasoL (TEMOVATE) 0.05 % ointmentIndicati ons:Acute palmoplantar pustular psoriasis,Chroni c hypertension affecting ,20 weeks gestation of Apply a thin layer to the affected areas twice daily. 30 g 05/17/20 25 025 Active NIFEdipine XL (PROCARDIA XL) 30 mg 24 hr tabletIndication s:Chronic hypertension affecting ,20 weeks gestation of Take 1 tablet (30 mg total) by mouth in the morning and at bedtime. 60 tablet 2 05/17/20 25 Active labetaloL (NORMODYNE) 200 mg tablet Take 1 tablet (200 mg total) by mouth in the morning and 1 tablet (200 mg total) before bedtime. 025 Discontinued metFORMIN XR (GLUCOPHAGE XR) 500 mg 24 hr tablet Take 1 tablet (500 mg total) by mouth daily with breakfast. 025 Discontinued metroNIDAZOLE (FLAGYL) 500 mg tablet Take 1 tablet (500 mg total) by mouth in the morning and 1 tablet (500 mg total) before bedtime. 04/26/20 25 025 labetaloL (NORMODYNE) 200 mg tablet Take 1 tablet (200 mg total) by mouth in the morning and 1 tablet (200 mg total) before bedtime. 04/11/20 Active Problems Problem Noted Date Diagnosed Date Heart palpitations 03/13/2024 Estimated Date of Delivery Comme nts Yes 10/02/2025 Based on last me nstrual period of 12/26/2024 Encounters Date Type Department Care Team Description 05/17/2025 9:00 AM EDT Office Visit Maternal- Medicine at [facility] [address] [place] [phone] Clair Hare MD Hamilton, Ira, MD Chronic hypertension affecting (Primary Dx); Acute palmoplantar pustular psoriasis; Severe obesity due to excess calories affecting , antepartum ([facility]); 20 weeks gestation of 05/17/2025 7:12 AM EDT - 05/17/2025 11:59 PM EDT Hospital Encounter [facility] - [facility] US Imaging [address] [place] [phone] Hypertension affecting in second trimester Discharge Disposition: Home 05/17/2025 Results Follow-Up Maternal- Medicine at [facility] [address] [facility] [place] [address] Sheila Cruz MD B-type natriuretic peptide 05/17/2025 Orders Only Maternal- Medicine at [facility] [address] [place] [address] Bethany Lundy LPN Acute palmoplantar pustular psoriasis (Primary Dx); Chronic hypertension affecting ; Severe obesity due to excess calories affecting , antepartum ([facility]); Hypertension affecting in second trimester 05/15/2025 Travel 04/29/2025 6:45 PM EDT - 04/29/2025 7:24 PM EDT Emergency [facility] - Emergency [address] [place] [place] [phone] Tian Rodriguez MD Laceration of right thumb without foreign body without damage to nail, initial encounter (Primary Dx) Discharge Disposition: Home 04/29/2025 Travel 04/23/2025 Orders Only Maternal- Medicine at [facility] [address] [place] [phone] Ref Prov, Not In System 04/23/2025 Abstract Maternal- Medicine at [facility] [address] [facility] [place] [phone] Sheila Cruz MD 04/19/2025 Orders Only Maternal- Medicine at [facility] [address] [place] [phone] Joann Moise RN Hypertension affecting in second trimester (Primary Dx) from Last 3 Months Family History Medical History Relation Name Comments Epilepsy Brother Diabetes Father Hypertension Father Cancer Maternal Grandfather Hypertension Mother Heart disease Paternal Grandfather Hypertension Paternal Grandfather Sudden Paternal Grandfather Sudden Paternal Uncle Autism Neg Hx Autoimmune disease Neg Hx Bleeding Disorder Neg Hx Clotting disorder Neg Hx Developmental delay Neg Hx Down syndrome Neg Hx Heart defect Neg Hx Relation Name Status Comments Brother Father Maternal Grandfather Maternal Grandmother Mother Paternal Grandfather Paternal Grandmother Paternal Uncle Alive Social History Tobacco Use Types Packs/Day Years [...] Pulse 87 05/17/2025 7:51 AM EDT Temperature 37.1 C (98.7 F) 04/29/2025 6:26 PM EDT Respiratory Rate 19 04/29/2025 6:26 PM EDT Oxygen Saturation 99% 04/29/2025 6:26 PM EDT Inhaled Oxygen Concentration - - Weight 128.1 kg (282 lb 8 oz) 05/17/2025 7:51 AM EDT Height 172.7 cm (5' 7.99 ) 05/17/2025 7:51 AM ED T Body Mass Index 42.96 05/17/2025 7:51 AM EDT Plan of Treatment Upcoming Encounters Date Type Department Care Team (Late st Contact Info) Description 06/18/2025 8:00 AM EDT Appointment [facility] - Ultrasound [address] [place] [address] 06/18/2025 2:00 PM EDT Telemedicine Maternal- Medicine at [facility] [address] [place] [address] Sheila Cruz MD [address] [place] [address] Health Maintenance Due Date Last Done Comments Depression Screening 2004 Adult BMI Follow Up Plan 2010 DTaP,Tdap and Td Vaccines (1 - Tdap) 2011 Influenza Vaccine 04/22/2025 Adult BMI Screening 05/17/2026 05/17/2025 Tobacco Screening 05/17/2026 05/17/2025 Pap Smear 12/11/2027 12/10/2024, 04/0 11/2022, 11/23/2022, Additional history exists Medical Devices Not on file Procedures Procedure Name Priority Date/Time Associated Diagnosis Comments B-TYPE NATRIURETIC PEPTIDE Routine 05/17/2025 9:54 AM EDT Chronic hypertension affecting 20 weeks gestation of [facility] COMPREHENSIVE ANATOMIC SURVEY Routine 05/17/2025 9:10 AM EDT Hypertension affecting in second trimester PM ED LACERATION REPAIR Routine 04/29/2025 6:52 PM EDT URIC ACID Routine 04/17/2025 1:11 PM EDT BUN Routine 04/17/2025 CREATININE, SERUM Routine 04/17/2025 PROTIME & INR Routine 04/17/2025 APTT Routine 04/17/2025 CBC (NO DIFF) Routine 04/17/2025 TYPE AND SCREEN Routine 03/20/2025 HEMOGLOBIN A1C Routine 03/20/2025 HEPATITIS B SURFACE ANTIGEN Routine 03/20/2025 HEPATITIS C(HCV) ANTIBODY W/REFLEX TO PCR Routine 03/20/2025 DRUG SCREEN, URINE Routine 03/20/2025 CBC (NO DIFF) Routine 03/20/2025 HIV 1&2 AB/AG SCREEN (P24 AG) Routine 03/20/2025 RUBELLA IGG IMMUNE STATUS Routine 03/20/2025 SYPHILIS TOTAL(UNKNOWN SYPHILIS STATUS) Routine 03/20/2025 PAP SMEAR Routine 11/23/2022 5:20 AM EDT Encounter for screening for malignant neoplasm of cervix Encounter for screening for human papillomavirus (HPV) from Last 3 Months or Most Recently Relevant to Health Maintenance Results * B-type natriuretic peptide (05/17/2025 9:54 AM EDT) BNP 46 <=100 pg/mL 05/17/2025 11:13 AM EDT [facility] Blood Venous blood / Unknown Venipuncture / Unknown 05/17/2025 9:54 AM EDT 05/17/2025 9:54 AM EDT us Sheila Cruz MD LAB BLOOD ORDERABLES Final Resul t [facility] [address] [place] [address], [place] [phone] * [facility] COMPREHENSIVE ANATOMIC SURVEY (05/17/2025 9:10 AM EDT) Anatomical Region Laterality Modality OB-GAS MASK INSPECTOR Ultrasound 05/17/2025 7:47 AM EDT Narrative 05/17/2025 4:39 PM EDT NAME: PAULA HUGHES : 1990 SEX: F Accession Number: [id number] ORDERING PHYSICIAN: ISRAEL BRODERICK REFERRING PHYSICIAN: ISRAEL BRODERICK Coding ----- --------- Procedures [id number]: Ultrasound, uterus, real time with image documentation, and maternal evaluation plus detailed anatomic examination, transabdominal approach;single or first gestation [id number]: Ultrasound, uterus, real time with image documentation, transvaginal Indication ----- --------- Screening for Anatomic Survey , Screening for cervical length , Anxiety , Depression , Gestational hypertension without significant proteinuria , Obesity in , History of gestational hypertension. History ----- --------- OB History 2. Para 1 [id number] Maternal Assessment ----- --------- Physical Exam Height [...] EFW (oz) 13 oz EFW by: Hadlock ([id number]-FL) Extended Tibia 23.0 mm 18w 1d 2% [...] Heart/Thorax: RVOT view. LVOT view. 3-vessel view. 1-zgubbz-zfcsmjf view. Situs. Bicaval view. Cardiac position. Cardiac [...] cyst noted. Recommendations ----- --------- Please see [facility] documentation from today. The patient is [...] HUGHES : 1990 SEX: F Accession Number: [id number] ORDERING PHYSICIAN: ISRAEL BRODERICK REFERRING PHYSICIAN: ISRAEL BRODERICK Coding ----- --------- Procedures [id number]: Ultrasound, uterus, real time with imagedocumentation, and maternal evaluation plus detailed anatomic examination, transabdominalapproach;single or first gestation [id number]: Ultrasound, uterus, real time with imagedocumentation, transvaginal Indication ----- --------- Screening for Anatomic Survey , Screening for cervical length , Anxiety ,Depression , Gestational hypertension without significant proteinuria , Obesity in , History of gestationalhypertension. History ----- --------- OB History 2. Para 1 [id number] Maternal Assessment ----- --------- Physical Exam Height [...] EFW (oz) 13 oz EFW by: Hadlock (ZEE-MI-BN-FL) Extended Tibia 23.0 mm 18w 1d 2% [...] Heart/Thorax: RVOT view. LVOT view. 3-vessel view. 1-qzcmhs-rvrjslk view.Situs. Bicaval view. Cardiac position. Cardiac axis. [...] byprimary OB provider unless otherwise specified by [facility]. Results forwarded to ordering provider so they can follow up with thepatient as necessary. Israel Broderick DO [facility] ORDERABLES Final Result * Laceration Repair (04/29/2025 6:52 PM EDT) Tian Cadet MD - 04/29/2025 6:52 PM EDT Tian Rodriguez MD 04/29/2025 8:19 PM Laceration Repair Date/Time: 04/29/2025 6:52 PM Performed by: Tian Rodriguez MD Authorized by: Tian Rodriguez MD Consent: Consent obtained: Verbal Consent given by: Patient Risks, benefits, and alternatives were discussed: yes Risks discussed: Infection and pain Alternatives discussed: No treatment [facility] protocol: Procedure explained and questions answered to patient or proxy's satisfaction: yes Patient identity confirmed: Verbally with patient Anesthesia: Anesthesia method: None Laceration details: Location: Finger Finger location: R thumb Length (cm): 0.5 Exploration: Hemostasis achieved with: Direct pressure Contaminated: no Skin repair: Repair method: Tissue adhesive Repair type: Repair type: Simple Post-procedure details: Dressing: Open (no dressing) Procedure completion: Tolerated us Tian Rodriguez MD PROCEDURE/MINOR SURGICAL ORDERA BLES Final Result * Uric acid (04/17/2025 1:11 PM EDT) Blood Venous blood / Unknown us Not In System Ref Prov LAB BLOOD ORDERABLES Alma l Result Performing Organization Address [facility] de Phone Number MANUALLY TRANSCRIBED RESULTS * APTT (04/17/2025) APTT 26.5 MANUALLY TRANSCRIBED RESULTS Blood Venous blood / Unknown 04/17/2025 us Not In System Ref Prov LAB BLOOD ORDERABLES Alma l Result Performing Organization Address [facility] de Phone Number MANUALLY TRANSCRIBED RESULTS * Protime & INR (04/17/2025) Blood Venous blood / Unknown us Not In System Ref Prov LAB BLOOD ORDERABLES Alma l Result Performing Organization Address [facility] de Phone Number MANUALLY TRANSCRIBED RESULTS * CBC without diff (04/17/2025) Only the most recent of2 resultswithin the time period is included. Hemoglobin 11.9 MANUALLY TRANSCRIBED RESULTS Hematocrit 35.4 MANUALLY TRANSCRIBED RESULTS Rbc Mcv (Fl) By Automated Count 93.2 MANUALLY TRANSCRIBED RESULTS Platelets 251 MANUALLY TRANSCRIBED RESULTS Blood Venous blood / Unknown us Not In System Ref Prov LAB BLOOD ORDERABLES Alma l Result Performing Organization Address [facility] de Phone Number MANUALLY TRANSCRIBED RESULTS * BUN (04/17/2025) Blood Venous blood / Unknown us Not In System Ref Prov LAB BLOOD ORDERABLES Edit ed Result - Final Performing Organization Address [facility] de Phone Number MANUALLY TRANSCRIBED RESULTS * Creatinine includes GFR, serum (04/17/2025) Blood Venous blood / Unknown us Not In System Ref Prov LAB BLOOD ORDERABLES Edit ed Result - Final Performing Organization Address City/[facility]/ZIP Co de Phone Number MANUALLY TRANSCRIBED RESULTS * HIV 1&2 AB/AG Screen (P24 AG) (03/20/2025) HIV 1&2 AB/AG NON REACTIVE MAN UALLY TRANSCRIBED RESULTS Blood Venous blood / Unknown us Not In System Ref Prov LAB BLOOD ORDERABLES Alma l Result Performing Organization Address [facility] Co de Phone Number MANUALLY TRANSCRIBED RESULTS * Rubella IGG immune status (03/20/2025) Rubella immune IgG IMMUNE MANUALLY TRANSCRIBED RESULTS Blood Venous blood / Unknown us Not In System Ref Prov LAB BLOOD ORDERABLES Alma l Result Performing Organization Address [facility]/ZIP Co de Phone Number MANUALLY TRANSCRIBED RESULTS * Syphilis Total (Unknown Syphilis Status) (03/20/2025) Syphilis NON REACTIVE MANUALL Y TRANSCRIBED RESULTS Blood Venous blood / Unknown us Not In System Ref Prov LAB BLOOD ORDERABLES Alma l Result Performing Organization Address [facility] Co de Phone Number MANUALLY TRANSCRIBED RESULTS * Hepatitis C(HCV) Ab w/ Reflex to PCR (03/20/2025) Hepatitis C Antibody NON REACTIVE MANUALLY TRANSCRIBED RESULTS Blood Venous blood / Unknown us Not In System Ref Prov LAB BLOOD ORDERABLES Alma l Result MANUALLY TRANSCRIBED RESULTS * Drug Screen, Urine (03/20/2025) Methadone NEGATIVE MANUALLY TRANSCRIBED RESULTS Opiates NEGATIVE MANUALLY TRANSCRIBED RESULTS Amphetamine/Methamp hetamine NEGATIVE MANUALLY TRANSCRIBED RESULTS Cocaine Metabolite NEGATIVE M ANUALLY TRANSCRIBED RESULTS Phencyclidine NEGATIVE MANUAL LY TRANSCRIBED RESULTS Thc Marijuana, Urine NEGATIVE MANUALLY TRANSCRIBED RESULTS Oxycodone NEGATIVE MANUALLY TRANSCRIBED RESULTS Barbiturates NEGATIVE MANUALL Y TRANSCRIBED RESULTS Benzodiazepines NEGATIVE MANU ALLY TRANSCRIBED RESULTS Urine us Not In System Ref Prov URINE ORDERABLES Final Re sult Performing Organization Address [facility] de Phone Number MANUALLY TRANSCRIBED RESULTS * Hepatitis B surface antigen (03/20/2025) Hepatitis B Surface Antigen NEGATIVE MANUALLY TRANSCRIBED RESULTS Blood Venous blood / Unknown us Not In System Ref Prov LAB BLOOD ORDERABLES Alma l Result Performing Organization Address [facility] de Phone Number MANUALLY TRANSCRIBED RESULTS * Type and screen (03/20/2025) Abo/Rh(D) B Positive MANUALLY TRANSCRIBED RESULTS Antibody Screen NEGATIVE MANUALLY TRANSCRIBED RESULTS Blood Venous blood / Unknown us Not In System Ref Prov BLOOD BANK TEST ORDERABLE S Final Result Performing Organization Address [facility] de Phone Number MANUALLY TRANSCRIBED RESULTS * Hemoglobin A1c (03/20/2025) Hemoglobin A1C 5.1 4.0 - 6.0 % MANUALLY TRANSCRIBED RESULTS Blood Venous blood / Unknown us Scanning Provider External LAB BLOOD ORDERABLES Final Result Performing Organization Address [facility] de Phone Number MANUALLY TRANSCRIBED RESULTS * Pap Smear (11/23/2022 5:20 AM EDT) 11/23/2022 5:20 AM EDT 11/23/2022 5:29 AM EDT Narrative COPATH - 11/24/2022 1:05 PM EDT [facility] [address] [place] [address] Gynecologic Cytology Consultation Patient Name:SANTHOSH RAMIRESEN Jessica:1990 (Age: 32)Gender:FTaken:11/23/2022Reported:11/24/2022hysician(s):Bethany Raymundo CNP ([phone])Copy To: Rec. #:[id number]: #[id number] Final Cytologic Interpretation ThinPrep Pap Test (Cervical): Satisfactory for evaluation. A transformation zone component is present. NEGATIVE FOR INTRAEPITHELIAL LESION OR MALIGNANCY. j/11/24/2022 Interpretation performed at [facility], [address] [place] [id number], License number: [id number]. Electronically Signed Out By ZORA Walter(ASCP) Date of Last Menstrual Period: (None Given) Other Clinical Conditions: Z12.4 Screening for malignant neoplasm of cervix Z11.51 Screening for HPV Source of Specimen ThinPrep Pap Test (Cervical) Thin Prep Pap (GAS MASK INSPECTOR) Fee Code(s): G0145 us Bethany Raymundo HAND ETCHER HELPER-RN RESOURCE NURSE PATHOLOGY/CYTOLOGY ORDE LIZETH Final Result COPATH from Last 3 Months or Most Recently Relevant to Health Maintenance Insurance [employer] Care Teams Oil Prospecting Observer Relationship Specialty Start Date End Date Services, [facility] [address] [place], [place] PCP - General Family Medicine 11/03/24
--- OUTSIDE RECORDS SUMMARY | 2025-05-23 14:14 | XMS_ITS | Encounter Summary ---
Author Organization [facility] Address [address] [place] [address] Care Team Providers Care Presser Cotton Ginning Name Role Phone Judy Caal Unavailable Unavailable Encounter Details Date Type Department Care Team (Late st Contact Info) Description 06/01/2024 Abstract [facility] [address] [place] [address] Caesar Broderick DO [address] [place], [facility] [...] 2:30 PM EDT Routine [facility] [address] [place] [address] Rosie Qiu, JEM [address] [place] [address] 12/16/2025 3:00 PM EDT Office Visit [facility] [address] [place] [address] Caesar Broderick DO [address] [place], [id number] documented as of this encounter Visit Diagnoses Not on filedocumented in this encounter Care Teams Presser Cotton Ginning Relationship Specialty Start Date End Date Judy Caal PCP - [facility] NEEDLE VALVE OPERATOR 02/20/24 documented as of this encounter
--- OUTSIDE RECORDS SUMMARY | 2025-05-23 14:14 | XMS_ITS | Clinical Summary ---
Author Organization [facility] Address [address] [place] [address] Phone Care Team Providers Care Patient Accounts Manager Name Role Phone June Trinidad LPN Unavailable [...] COVID-19 Vaccine (1 - 2023-2 5 season) 2025 Influenza Vaccine (#1) 2025 Yearly Adult Physical [...] age to complete this topic Insurance [address] [place] [id number] [employer] MEDICA[employer] [address] [place] [id number] [facility] MEDICAID Care Teams Patient Accounts Manager Relationship Specialty Start Date End Date June Trinidad LPN Licensed Practical Nurse Reproductive Endocrinology and Infertility 01/01/25
--- OUTSIDE RECORDS SUMMARY | 2025-05-23 14:14 | XMS_ITS | Encounter Summary ---
Author Organization [facility] Address [address] [place] [address] Care Team Providers Care Strategic Marketing Leader Name Role Phone Judy Caal Unavailable Unavailable Encounter Details Date Type Department Care Team (Late st Contact Info) Description 04/26/2025 Abstract [facility] [address] [place] [address] Tsering Willingham MA Social History Tobacco [...] 2:30 PM EDT Routine [facility] [address] [place] [address] Rosie Qiu, JEM [address] [place] [address] 12/16/2025 3:00 PM EDT Office Visit [facility] [address] [place] [address] Caesar Broderick DO [address] [place] [address] documented as of this encounter Visit Diagnoses Not on filedocumented in this encounter Care Teams Strategic Marketing Leader Relationship Specialty Start Date End Date Judy Caal PCP - [facility] REFRIGERATION ENGINEERING TEACHER 02/20/24 documented as of this encounter
--- OUTSIDE RECORDS SUMMARY | 2025-05-23 14:14 | XMS_ITS | Encounter Summary ---
Author Organization [facility] Address [address] [place] [address] Care Team Providers Care Footwear Machinery Instructor Name Role Phone Judy Caal Unavailable Unavailable Encounter Details Date Type Department Care Team (Late st Contact Info) Description 04/10/2024 Abstract [facility] [address] [place] [address] Caesar Broderick DO [address] [place], [facility] Social History Tobacco Use Types Packs/Day Years [...] 2:30 PM EDT Routine [facility] [address] [facility] [place] [address] Rosie Qiu, JEM [address] [place] [address] 12/16/2025 3:00 PM EDT Office Visit [facility] [address] [place] [address] Caesar Broderick DO [address] [place] [address] documented as of this encounter Visit Diagnoses Not on filedocumented in this encounter Care Teams Footwear Machinery Instructor Relationship Specialty Start Date End Date Judy Caal PCP - [facility] INSULATION BLANKET MAKER 02/20/24 documented as of this encounter
--- OUTSIDE RECORDS SUMMARY | 2025-05-23 14:14 | XMS_ITS | Encounter Summary ---
Author Organization [facility] [employer] [facility] tem Address [id number] [address] [place] [address] Care Team Providers Care Police Shift Commander Name Role Phone Services, [facility] Primary Care Provider Reason for Referral * Diagnostic Imaging (Routine) - Pending Review Specialty Diagnoses / Procedures Referred By Radha rodriguez Referred To Contact Maternal and Medicine Diagnoses 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 Severe obesity due to excess calories affecting , antepartum ([facility]) Hypertension affecting in second trimester Procedures US [facility] with or without consult Sheila Cruz MD [address] [facility] 1st [place] [address] Phone: tel: fax: Maternal- Medicine at [facility] [address] [place] [address] Phone: tel: fax: Referral ID Status Reason Start Date Expiration Date V isits Requested Visits Authorized [id number] Pending Review 05/17/2025 05/17/2026 1 1 Encounter Details Date Type Department Care Team (Late st Contact Info) Description 05/17/2025 Orders Only Maternal- Medicine at [facility] [address] [place] [address] Bethany Lundy, SHAD Acute palmoplantar pustular psoriasis (Primary Dx); Chronic hypertension affecting ; Severe obesity due to excess calories affecting , antepartum (CMS-HCC); Hypertension affecting in second trimester Social History Tobacco Use Types Packs/Day Years [...] Info) Description 06/18/2025 8:00 AM EDT Appointment [facility] - Ultrasound [address] [place] [phone] 06/18/2025 2:00 PM EDT Telemedicine Maternal- Medicine at [facility] [address] [place] [phone] Sheila Cruz MD [address] [facility], [facility] 1st [place] [address] Scheduled Orders Name Type Priority Associated Diagnoses Orde r Schedule US MFM with or without consult Imaging Routine 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 Severe obesity due to excess calories affecting , antepartum (CMS-HCC) Hypertension affecting in second trimester Expected: 05/17/2025, Expires: 05/17/2026 documented as of this encounter Visit Diagnoses 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 Chronic hypertension affecting Severe obesity due to excess calories affecting , antepartum (CMS-HCC) Hypertension affecting in second trimester documented in this encounter Care Teams Police Shift Commander Relationship Specialty Start Date End Date Services, [facility] [address] [place], [place] PCP - General Family Medicine 11/03/24 documented as of this encounter
--- OUTSIDE RECORDS SUMMARY | 2025-05-23 14:14 | XMS_ITS | Encounter Summary ---
Author Organization [facility] tem Address [id number] [address] [place] [address] Care Team Providers Care Defense Travel Administrator Name Role Phone Services, [facility] Primary Care Provider Encounter Details Date Type Department Care Team ([facility] Contact Info) Description 04/23/2025 Orders Only Maternal- Medicine at [facility] [address] [place] [phone] Ref Prov, [place] [address] Social History Tobacco Use Types Packs/Day Years [...] money to get more. Never True 11/03/2024 Estimated Date of Delivery Comme nts Yes 10/02/2025 Based on last me nstrual period of 12/26/2024 Sex and Gender Information Value Date Recorded Sex Assigned at Not on file Legal Sex Female 2:11 PM EST Gender Identity Not on file Sexual Orientation Not on file documented as of this encounter Plan of Treatment Upcoming Encounters Date Type Department Care Team ([facility] Contact Info) Description 06/18/2025 8:00 AM EDT Appointment [facility] - Ultrasound [address] [place] [phone] 06/18/2025 2:00 PM EDT Telemedicine Maternal- Medicine at [facility] [address] [place] [phone] Sheila Cruz MD [address] [place] [address] documented as of this encounter Procedures Procedure Name Priority Date/Time Associated Diagnosis Comments URIC ACID Routine 04/17/2025 1:11 PM EDT BUN Routine 04/17/2025 CREATININE, SERUM Routine 04/17/2025 documented in this encounter Results * Uric acid (04/17/2025 1:11 PM EDT) Blood Venous blood / Unknown us Not In System Ref Prov LAB BLOOD ORDERABLES Alma l Result Performing Organization Address City/[facility] Co de Phone Number MANUALLY TRANSCRIBED RESULTS * BUN (04/17/2025) Blood Venous blood / Unknown us Not In System Ref Prov LAB BLOOD ORDERABLES Edit ed Result - Final Performing Organization Address [facility] Co de Phone Number MANUALLY TRANSCRIBED RESULTS * Creatinine includes GFR, serum (04/17/2025) Blood Venous blood / Unknown us Not In System Ref Prov LAB BLOOD ORDERABLES Edit ed Result - Final Performing Organization Address [facility] Co de Phone Number MANUALLY TRANSCRIBED RESULTS documented in this encounter Visit Diagnoses Not on filedocumented in this encounter Care Teams Defense Travel Administrator Relationship Specialty Start Date End Date [facility], [facility] [address] [place], [place] PCP - General Family Medicine 11/03/24 documented as of this encounter
--- OUTSIDE RECORDS SUMMARY | 2025-05-23 14:30 | XMS_ITS | Encounter Summary ---
Author Organization [facility] Address [address] [place] [address] Care Team Providers Care Labor Delivery Specialist Name Role Phone Judy Caal Unavailable Unavailable Reason for Visit * Reason Comments Routine Visit Encounter Details Date Type Department Care Team (Late st Contact Info) Description 05/23/2025 2:30 PM EDT Routine [facility] [place] [facility] [address] [place] [address] Rosie Qiu, AIRLINE OPERATIONS AGENT [address] [place] [address] Second trimester ([facility] 21 weeks gestation of ([facility]); induced hypertension, antepartum ([facility]); Vitamin D deficiency; H/O pre-eclampsia in prior , currently ([facility]) Social History Tobacco Use Types Packs/Day Years [...] 05/30/2025 3:20 PM EDT Routine [facility] [address] [place] [address] [place] [address] Rosie Qiu, AIRLINE OPERATIONS AGENT [address] [facility] [address] [place] [address] 06/24/2025 1:50 PM EST Routine [facility] [address] [place] [address] [place] [phone] Caesar Broderick, DO [address] [facility] [place] [address] 12/16/2025 3:00 PM EDT Office Visit [facility] [place] [address] Caesar Broderick, DO [address] [facility] [address] [place], [place] [phone] documented as of this encounter Visit Diagnoses Diagnosis Second trimester ([facility]) state, incidental 21 weeks gestation of ([facility]) induced hypertension, antepartum ([facility]) Transient hypertension of , antepartum Vitamin D deficiency H/O pre-eclampsia in prior , currently ([facility]) documented in this encounter Care Teams Labor Delivery Specialist Relationship Specialty Start Date End Date Judy Caal PCP - [facility] CABINETMAKER MAINTENANCE 02/20/24 documented as of this encounter
--- OUTSIDE RECORDS SUMMARY | 2025-05-23 19:40 | XMS_ITS | CCD ---
Author Organization [facility] Care Team Providers Care Firearms Expert Name Role Phone Pinky Singh Unavailable AfuaJudy Unavailable Unavailable Unavailable Primary Care Provider Unavailabl e Services, [facility] Primary Care Provider Caesar Broderick DO Attending Provider [phone] Davie, Caesar Attending Unavailable Davie, Caesar Admitting Unavailable White CONTROL CLERK HEAD, June A Unavailable Unavailable ROBBIE LOPEZ Attending Unavailable Services, [facility] Primary Care Provider DAVIE, CAESAR Attending Unavailable DAVIE, CAESAR Attending Unavailable DAVIE, CAESAR Attending Unavailable DAVIE, CAESAR Attending Unavailable DAVIE, CAESAR Attending Unavailable DAVIE, CAESAR Attending Unavailable DAVIE, CAESAR Attending Unavailable DAVIE, CAESAR Attending Unavailable DAVIE, CAESAR Attending Unavailable SERVICES, [facility] Primary Care Unava ilable MILLIE VILLAGRAN Attending Unavailable SERVICES, [facility] Primary Care Unava ilable FRANCIE ABRAMS Attending [...] (Mag-Ox) 400 MG tablet Indications: Second trimester ([facility]) , Acute nonintractable headache, unspecified headache type [...] UA Negative Negative - 4(70) +++ mg/dL [facility] Blood, UA Negative Negative - 50 Surjit/mcL [facility] Clarity, UA Clear [facility] re Color, UA Yellow [facility] e Glucose, UA Negative Negative - 2000(110) ++++ mg/dL [facility] Interpretation and review of laboratory results Normal [facility] Ketones, UA Negative Negative - 160(16) ++++ mg/dL [facility] Leukocytes, UA Negative Negative - 500+++ Kaleigh/mcL [facility] Nitrite, UA Negative Negative - Positive [facility] pH, UA 6 5 - 9 [facility] e Protein, UA Negative Negative - 1999(20) ++++ mg/dL [facility] Spec Grav, UA 1.015 1 - 1.03 [facility] Urobilinogen, UA 1.0 0.2 - 12 mg/dL [facility] TBH TOTAL PROTEIN 24 HOUR UR INEon 04-21-2025 TOTAL PROTEIN URINE RANDOM <6.0 NINF - 11.9 mg/dL [facility] TOTAL VOLUME 24 HOUR URINE 2500 mL/24hr [facility] e ALL CBC WITH AUTO DIFFon BASOPHILS ABSOLUTE AUTO 0 [facility] Basophils/100 WBC (Bld) 0.2 % 0.2 - 2.0 % [facility] Eosinophils/100 WBC (Bld) 2.9 % 0.9 - 7.0 % [facility] Erythrocyte distribution width (RBC) [Ratio] 12.3 % 11.0 - 15.0 % [facility] IMMATURE GRANULOCYTES ABS AUTO 0.09 High [facility] Immature granulocytes/100 WBC (Bld) 0.7 % High 0.0 - 0.5 % [facility] Interpretation and review of laboratory results Abnormal [facility] LYMPHOCYTES ABSOLUTE AUTO 2 [facility] Lymphocytes/100 WBC (Bld) 15.4 % Low 20.5 - 60.0 % [facility] MCH (RBC) [Entitic mass] 31.3 pg 26.7 - 34.0 pg [facility] MCHC (RBC) [Mass/Vol] 33.6 g/dL 29.9 - 35.2 g/dL [facility] MCV (RBC) [Entitic vol] 93.2 fL 81.0 - 99.0 fL [facility] MONOCYTES ABSOLUTE AUTO 0.5 [facility] Monocytes/100 WBC (Bld) 4.1 % 1.7 - 12.0 % [facility] NEUTROPHILS ABSOLUTE AUTO 9.9 High [facility] Neutrophils/100 WBC (Bld) 76.7 % High 43.0 - 75.0 % [facility] Platelet mean volume (Bld) [Entitic vol] 10.2 fL 9.5 - 13.5 fL [facility] TBH EO # 0.4 [facility] TBH PLT 251 [facility] TBH RBC 3.8 Low [facility] TB WBC 13 High [facility] CLINISYNC APTTon 04-17-2025 aPTT Coag (Bld) [Time] 26.5 s [facility] CBC without diffon Platelets (Bld) [#/Vol] 251 10*3/uL [facility] Rbc Mcv (Fl) By Automated Count 93.2 [facility] Laboratory - Hematology and Cell countson 04-17-2025 Hematocrit (Bld) [Volume fraction] 35.4 % [facility] Hemoglobin (Bld) [Mass/Vol] 11.9 g/dL [facility] No Panel Informationon 04-17 [facility] Urinalysis macro (dipstick) panel (U)on 04-11-2025 Bilirubin, UA Negative Negative - 4(70) +++ mg/dL [facility] Blood, UA Negative Negative - 50 Surjit/mcL [facility] Clarity, UA Clear [facility] re Color, UA Yellow [facility] Glucose, UA Negative Negative - 1999(110) ++++ mg/dL [facility] Interpretation and review of laboratory results Normal [facility] Ketones, UA Negative Negative - 160(16) ++++ mg/dL [facility] Leukocytes, UA Negative Negative - 500+++ Kaleigh/mcL [facility] Nitrite, UA Negative Negative - Positive [facility] pH, UA 6 5 - 9 [facility] Protein, UA Negative Negative - 1999(20) ++++ mg/dL [facility] Spec Grav, UA 1.015 1 - 1.03 [facility] Urobilinogen, UA 1.0 0.2 - 12 mg/dL [facility] Urinalysis macro (dipstick) panel (U)on 03-28-2025 Bilirubin, UA Negative Negative - 4(70) +++ mg/dL [facility] Blood, UA Negative Negative - 50 Surjit/mcL [facility] Clarity, UA Clear [facility] re Color, UA Yellow [facility] Glucose, UA Negative Negative - 1999(110) ++++ mg/dL [facility] Interpretation and review of laboratory results Abnormal [facility] Ketones, UA Negative Negative - 160(16) ++++ mg/dL [facility] Leukocytes, UA Positive Negative - 500+++ Kaleigh/mcL [facility] Comment on above: 2+ Nitrite, UA Negative Negative - Positive [facility] pH, UA 6 5 - 9 [facility] Protein, UA Negative Negative - 1999(20) ++++ mg/dL [facility] Spec Grav, UA 1.02 1 - 1.03 [facility] Urobilinogen, UA 1.0 0.2 - 12 mg/dL [facility] ALL CBC WITH AUTO DIFFon BASOPHILS ABSOLUTE AUTO 0.1 [facility] Basophils/100 WBC (Bld) 0.5 % 0.2 - 2.0 % [facility] Eosinophils/100 WBC (Bld) 4 % 0.9 - 7.0 % [facility] Erythrocyte distribution width (RBC) [Ratio] 12.2 % 11.0 - 15.0 % [facility] IMMATURE GRANULOCYTES ABS AUTO 0.08 High [facility] Immature granulocytes/100 WBC (Bld) 0.6 % High 0.0 - 0.5 % [facility] Interpretation and review of laboratory results Abnormal [facility] LYMPHOCYTES ABSOLUTE AUTO 2.6 [facility] Lymphocytes/100 WBC (Bld) 18.4 % Low 20.5 - 60.0 % [facility] MCH (RBC) [Entitic mass] 31.5 pg 26.7 - 34.0 pg [facility] MCHC (RBC) [Mass/Vol] 34.1 g/dL 29.9 - 35.2 g/dL [facility] MCV (RBC) [Entitic vol] 92.4 fL 81.0 - 99.0 fL [facility] MONOCYTES ABSOLUTE AUTO 0.6 [facility] Monocytes/100 WBC (Bld) 4.3 % 1.7 - 12.0 % [facility] NEUTROPHILS ABSOLUTE AUTO 10.1 High [facility] Neutrophils/100 WBC (Bld) 72.2 % 43.0 - 75.0 % [facility] Platelet mean volume (Bld) [Entitic vol] 10.2 fL 9.5 - 13.5 fL [facility] Health[facility] are TBH EO # 0.6 [facility] TBH PLT 261 [facility] TB RBC 3.94 Low [facility] TBH WBC 13.9 High [facility] CLINISYNC CBC without diffon Platelets (Bld) [#/Vol] 261 10*3/uL [facility] Rbc Mcv (Fl) By Automated Count 92.4 [facility] Drug Screen, Urineon 025 Amphetamine/Methamphet amine Negative [facility] Barbiturates Negative [facility] Benzodiazepines Negative [facility] Cocaine Metabolite Negative [facility] Methadone Negative [facility] Opiates Negative [facility] Oxycodone Negative [facility] Phencyclidine Negative [facility] Thc Marijuana, Urine Negative [facility] HBV surface Ag IA Qlon 03-20 Hepatitis B Surface Antigen Negative [facility] HCV Ab IA Qlon 03-20-2025 HCV Ab Ql (S) Non-Reactive [facility] HIV 1+2 Ab+HIV1 p24 Ag IA Ql on 03-20-2025 HIV 1&2 AB/AG Non-Reactive [facility] Hemoglobin A1con 03-20-2025 HbA1c (Bld) [Mass fraction] 5.1 % 4.0 - 6.0 % [facility] Laboratory - Hematology and Cell countson 03-20-2025 Hematocrit (Bld) [Volume fraction] 36.4 % [facility] [employer] e Hemoglobin (Bld) [Mass/Vol] 12.4 g/dL [facility] No Panel Informationon 03-20 [facility] Rubella IGG immune statuson 03-20-2025 Rubella immune IgG [facility] T. pallidum IgG+IgM IA Ql (S )Ordered By: Christina Bertrand on 03-20-2025 Syphilis Non-Reactive [facility] Type and screenon 03-20-2025 Abo/Rh(D) Positive [facility] HCG ( test) Ql (U)o n 03-01-2025 Interpretation and review of laboratory results Abnormal [facility] Preg Test, Ur Positive Negative [facility] US OB TRANSVAGINALon 025 US [...] UA Negative Negative - 4(70) +++ mg/dL [facility] Blood, UA Negative Negative - 50 Surjit/mcL [facility] Clarity, UA Clear [facility] re Color, UA Yellow [facility] e Glucose, UA Negative Negative - 1999(110) ++++ mg/dL [facility] Interpretation and review of laboratory results Normal [facility] Ketones, UA Negative Negative - 160(16) ++++ mg/dL [facility] Leukocytes, UA Negative Negative - 500+++ Kaleigh/mcL [facility] Nitrite, UA Negative Negative - Positive [facility] pH, UA 7 5 - 9 [facility] e Protein, UA Negative Negative - 1999(20) ++++ mg/dL [facility] Spec Grav, UA 1.005 1 - 1.03 [facility] Urobilinogen, UA 0.2 0.2 - 12 mg/dL [facility] e ALL PROGESTERONEon 5 PROGESTERONE 8.7 ng/mL . [facility] are Comment on above: Follicular phase 0.1 - 0.9 Luteal phase 1.8 - 23.9 Ovulation phase 0.1 - 12.0 First trimester 11.0 - 44.3 Second trimester 25.4 - 83.3 Third trimester 58.7 - 214.0 Postmenopausal 0.0 - 0.1 Performed at: [facility] [id number] Forming Machine Operator: Yobany Blount PhD, Phone: [phone] [facility] RE[facility] FOR LAB CO RPon 12-26-2024 PATHOLOGY REQUEST FOR LAB RENA [facility] Comment on above: See report. Scanned copy available in EMR. SKIN SPECIMEN [facility] [employer] e ALL PROGESTERONEon 5 PROGESTERONE 37.9 ng/mL . [facility] are Comment on above: Follicular phase 0.1 - 0.9 Luteal phase 1.8 - 23.9 Ovulation phase 0.1 - 12.0 First trimester 11.0 - 44.3 Second trimester 25.4 - 83.3 Third trimester 58.7 - 214.0 Postmenopausal 0.0 - 0.1 Performed at: [facility] [address] [address] [place], [place] [id number] Forming Machine Operator: Yobany Blount PhD, Phone: [phone] [facility] Pathology Request for Lab Co rpon 12-18-2024 Pathology Request for Lab Rena Normal [facility] Comment on above: Order Comment: SKIN SPECIMEN Result Comment: See report. Scanned copy available in EMR. PERFORMED BY: [facility] [address] [facility]. [place] [id number] PATHOLOGIST REGULATOR TESTER ANAHI TRAN M.D. Performed By: #### P ATH TO [facility] #### [facility] [address] IGP,APTIMA HPV,AGE GDLNon AGE GDLN ACOG TESTING Note . [facility] Comment on above: TESTS RESULT FLAG UN ITS REF RANGE LAB Clinician Provided Cytology Information Source.............Cervix;Endocervix No. of containers..01 ThinPrep Vial Age Algo ACOG Marjorie... 30-65 01 FLAG LEGEND: L-Low Normal,H-High Normal,LL-Alert Low,HH-Alert High <-Panic Low,>-Panic High,A-Abnormal,AA-Critical Abnormal Performed at: 01 =G [facility] [address] [facility] [place] [address] Vonnie Woodard MD, HPV APTIMA Negative Negative [facility] e Comment on above: This nucleic acid am plification test detects fourteen high- risk HPV types (16,18,31,33,35,39,45,51,52,56,58,59,66,68) without differentiation. Performed at: =G - [facility] [id number] Forming Machine Operator: Vonnie Woodard MD, Phone: [phone] Performed at: - [facility], [place] [id number] Forming Machine Operator: Vonnie Woodard MD, Phone: [phone] IGP, APTIMA HPV, RFX 16/18,45 Note . [facility] Comment on above: TESTS RESULT FLAG UN ITS REF RANGE LAB DIAGNOSIS: 02 NEGATIVE FOR INTRAEPITHELIAL LESION OR MALIGNANCY. Specimen adequacy: 02 Satisfactory for evaluation. Endocervical and/or squamous metaplastic cells (endocervical component) are present. Performed by: Clinton Vyas, Adjunct Instructor Of Women'S Studies ([facility]) . 02 Note: Note 02 The [...] Low,>-Panic High,A-Abnormal,AA-Critical Abnormal Performed at: [address] [facility] [address] [address] Vonnie Woodard MD, BRUSH-SPATULA CERVIX ENDOCERVIX [facility] ALL PROGESTERONEon 5 PROGESTERONE 11.2 ng/mL . [facility] are Comment on above: Follicular phase 0.1 - 0.9 Luteal phase 1.8 - 23.9 Ovulation phase 0.1 - 12.0 First trimester 11.0 - 44.3 Second trimester 25.4 - 83.3 Third trimester 58.7 - 214.0 Postmenopausal 0.0 - 0.1 Performed at: - [facility] [address] [id number] Forming Machine Operator: Yobany Blount PhD, Phone: [phone] [employer] CBC AND AUTO DIFFon 11-05-19 25 ABSOLUTE BASOPHIL 0.1 X10E9/L Normal 0.0-0.2 [facility] Comment on above: Performed By: #### 4 8066-5, , THYR, CBCA, CMP #### [facility] ([id number]) [address] [place] [address] ABSOLUTE NEUTROPHIL 6.9 X10E9/L High 1.5-6.6 [facility] Comment on above: Performed By: #### 4 8066-5, , THYR, CBCA, CMP #### [facility] ([id number]) [address] [place] [address]6685 Basophils/100 WBC (Bld) 1.1 % Normal [facility] Comment on above: Performed By: #### 4 8066-5, , THYR, CBCA, CMP #### [facility] ([id number]) [address] [place] [address] Eosinophils (Bld) [#/Vol] 0.3 10*3/uL Normal 0.0-0.4 [facility] Comment on above: Performed By: #### 4 8066-5, , THYR, CBCA, CMP #### [facility] ([id number]) [address] [place] [address]95[address] Eosinophils/100 WBC (Bld) 2.3 % Normal [facility] Comment on above: Performed By: #### 4 8066-5, , THYR, CBCA, CMP #### [facility] ([id number]) [address] [place] [address] Erythrocyte distribution width (RBC) [Ratio] 12.6 % Normal 11.5-15.0 [facility] Comment on above: Performed By: #### 4 8066-5, , THYR, CBCA, CMP #### [facility] ([id number]) [address] [place] [address] 71615 Hematocrit (Bld) [Volume fraction] 40.4 % Normal 35-47 [facility] Comment on above: Performed By: #### 4 8066-5, , THYR, CBCA, CMP #### [facility] ([id number]) [address] [place] [address]407 Hemoglobin (Bld) [Mass/Vol] 13.7 g/dL Normal 11.7-15.5 [facility] Comment on above: Performed By: #### 4 8066-5, , THYR, CBCA, CMP #### [facility] ([id number]) [address] [place] [address] 05857 Lymphocytes (Bld) [#/Vol] 3.6 10*3/uL High 1.0-3.5 [facility] Comment on above: Performed By: #### 4 8066-5, , THYR, CBCA, CMP #### [facility] ([id number]) [address] [place] [address]1556 Lymphocytes/100 WBC (Bld) 31.6 % Normal [facility] Comment on above: Performed By: #### 4 8066-5, , THYR, CBCA, CMP #### [facility] ([id number]) [address] [place] [address] 97291 MCH (RBC) [Entitic mass] 30.9 pg Normal 27-34 [facility] Comment on above: Performed By: #### 4 8066-5, , THYR, CBCA, CMP #### [facility] ([id number]) [address] [place] [address] 74401 MCHC (RBC) [Mass/Vol] 34.0 g/dL Normal 32-36 [facility] Comment on above: Performed By: #### 4 8066-5, , THYR, CBCA, CMP #### [facility] ([id number]) [address] [place] [address] 33879 MCV (RBC) [Entitic vol] 91 fL Normal 80-100 [facility] Comment on above: Performed By: #### 4 8066-5, , THYR, CBCA, CMP #### [facility] ([id number]) [address] [place] [address] 71778 Monocytes (Bld) [#/Vol] 0.6 10*3/uL Normal 0-0.9 [facility] Comment on above: Performed By: #### 4 8066-5, , THYR, CBCA, CMP #### [facility] ([id number]) [address] [place] [address] 89813 Monocytes/100 WBC (Bld) 5.4 % Normal [facility] Comment on above: Performed By: #### 4 8066-5, , THYR, CBCA, CMP #### [facility] ([id number]) [address] [place] [address] 53444 Neutrophils/100 WBC (Bld) 59.6 % Normal [facility] Comment on above: Performed By: #### 4 8066-5, , THYR, CBCA, CMP #### [facility] ([id number]) [address] [place] [address] 5[address] Platelet mean volume (Bld) [Entitic vol] 7.9 fL Normal 7-12 [facility] Comment on above: Performed By: #### 4 8066-5, , THYR, CBCA, CMP #### [facility] ([id number]) [address] [place] [address] 63904 Platelets (Bld) [#/Vol] 346 10*3/uL Normal 150-450 [facility] Comment on above: Performed By: #### 4 8066-5, , THYR, CBCA, CMP #### [facility] ([id number]) [address] [place] [address] 94854 RBC COUNT 4.44 X10E12/L Normal 3.80-5.20 [facility] Comment on above: Performed By: #### 4 8066-5, , THYR, CBCA, CMP #### [facility] ([id number]) [address] [place] [address] 16954 WBC (Bld) [#/Vol] 11.5 10*3/uL High 4.0-11.0 [facility] Comment on above: Performed By: #### 4 8066-5, , THYR, CBCA, CMP #### [facility] ([id number]) [address] [place] [address] 44441 COMPREHENSIVE METABOLIC PANE [place] 11-04-2024 Albumin [Mass/Vol] 4.0 g/dL Normal 3.2-5.3 [facility] Comment on above: Performed By: #### 4 8066-5, , THYR, CBCA, CMP #### [facility] ([id number]) [address] [place] [address] 84955 ALP [Catalytic activity/Vol] 50 U/L Normal 39-130 [facility] Comment on above: Performed By: #### 4 8066-5, , THYR, CBCA, CMP #### [facility] ([id number]) [address] [place] [address] 12943 ALT [Catalytic activity/Vol] 19 U/L Normal 0-31 [facility] Comment on above: Performed By: #### 4 8066-5, , THYR, CBCA, CMP #### [facility] ([id number]) [address] [place] [address] 13135 Anion gap [Moles/Vol] 11 mmol/L Normal 5-15 [facility] Comment on above: Performed By: #### 4 8066-5, , THYR, CBCA, CMP #### [facility] ([id number]) [address] [place] [address] 18181 AST [Catalytic activity/Vol] 18 U/L Normal 0-41 [facility] Comment on above: Performed By: #### 4 8066-5, , THYR, CBCA, CMP #### [facility] ([id number]) [address] [place] [address] 49188 Bilirubin [Mass/Vol] 0.4 mg/dL Normal 0.3-1.2 [facility] Comment on above: Performed By: #### 4 8066-5, , THYR, CBCA, CMP #### [facility] ([id number]) [address] [place] [address] 67099 Calcium [Mass/Vol] 9.4 mg/dL Normal 8.5-10.5 [facility] Comment on above: Performed By: #### 4 8066-5, , THYR, CBCA, CMP #### [facility] ([id number]) [address] [place] [address] 31747 Chloride [Moles/Vol] 106 mmol/L Normal 98-109 [facility] Comment on above: Performed By: #### 4 8066-5, , THYR, CBCA, CMP #### [facility] ([id number]) [address] [place] [address] 19298 CO2 [Moles/Vol] 23 mmol/L Normal 22-32 [facility] Comment on above: Performed By: #### 4 8066-5, , THYR, CBCA, CMP #### [facility] ([id number]) [address] [place] [address] 09671 Creatinine [Mass/Vol] 0.76 mg/dL Normal 0.40-1.00 [facility] Comment on above: Result Comment: METH OD TRACEABLE TO IDMS STANDARD Performed By: #### 4 8066-5, , THYR, CBCA, CMP #### [facility] ([id number]) [address] [place] [address] 62330 eGFR (CKD-EPI) NON-RACE DEPENDENT >90 Normal >59 [facility] Comment on above: Result Comment: Reported eGFR is based on the CKD-EPI 2020 equation that does not use a race coefficient. Performed By: #### 4 8066-5, , THYR, CBCA, CMP #### [facility] ([id number]) [address] [place] [address] 55875 Glucose [Mass/Vol] 114 mg/dL High 65-99 [facility] Comment on above: Performed By: #### 4 8066-5, , THYR, CBCA, CMP #### [facility] ([id number]) [address] [place] [address] 62580 Potassium [Moles/Vol] 4.1 mmol/L Normal 3.5-5.0 [facility] Comment on above: Performed By: #### 4 8066-5, , THYR, CBCA, CMP #### [facility] ([id number]) [address] [place] [address] 26326 Protein [Mass/Vol] 7.3 g/dL Normal 6.0-8.0 [facility] Comment on above: Performed By: #### 4 8066-5, , THYR, CBCA, CMP #### [facility] ([id number]) [address] [place] [address] 04423 Sodium [Moles/Vol] 140 mmol/L Normal 134-146 [facility] Comment on above: Performed By: #### 4 8066-5, , THYR, CBCA, CMP #### [facility] ([id number]) [address] [place] [address] 95092 Urea nitrogen [Mass/Vol] 13 mg/dL Normal 5-23 [facility] Comment on above: Performed By: #### 4 8066-5, , THYR, CBCA, CMP #### [facility] ([id number]) [address] [place] [address] 61473 Fibrin D-dimer DDU (PPP) [Ma ss/Vol]on 11-04-2024 D DIMER <150 Normal <255 [facility] Comment on above: Result Comment: Results <255 ng/mL DDU: The presence of a VTE can safely be excluded with a negative D-Dimer result and Wells score. A negative result doesn't exclude the possibility of DIC. The test be repeated along with other diagnostic tests if the patient's symptoms persist or worsen. [email or web address] Performed By: #### 4 8066-5, 89066-8, THYR, CBCA, CMP #### [facility] ([id number]) [address] [place] [address] 33025 HCG ( test) Ql (U)o n 11-04-2024 Beta HCG ( test) Ql (U) Negative Normal NEG [facility] Comment on above: Performed By: #### 2 106-3 #### [facility] ([id number]) [address] [place] [address] 11072 MAGNESIUMon 11-04-2024 Magnesium [Mass/Vol] 2.3 mg/dL Normal 1.8-2.6 [facility] [facility] Comment on above: Performed By: #### 4 8066-5, , THYR, CBCA, CMP #### [facility] ([id number]) [address] [place] [address] THYROID PROFILEon 11-04-2024 Free T4 [Mass/Vol] 0.88 ng/dL Normal 0.61-1.60 [facility] Comment on above: Performed By: #### 4 8066-5, 24357-4, THYR, CBCA, CMP #### [facility] ([id number]) [address] [place] [address] TSH 1.78 uIU/mL Normal 0.49-4.67 [facility] Comment on above: Performed By: #### 4 8066-5, 67944-1, THYR, CBCA, CMP #### [facility] ([id number]) [address] [place] [address] [place] [address] URN MACROSCOPIC NURon 2024 BILIRUBIN LEIDA Negative Normal NEG [facility] Comment on above: Performed By: #### N UM #### [facility] ([id number]) [address] [place] [address] [place] [address] BLOOD/HGB LEIDA Trace Abnormal NEG [facility] Comment on above: Performed By: #### N UM #### [facility] ([id number]) [address] [place] [address] [place] [address] GLUCOSE LEIDA Negative Normal NEG [facility] Comment on above: Performed By: #### N UM #### [facility] ([id number]) [address] [place] [address] [place] [address] KETONES LEIDA Negative Normal NEG [facility] Comment on above: Performed By: #### N UM #### [facility] ([id number]) [address] [place] [address] [place] [address] LEUKOCYTE ESTERASE LEIDA Small Abnormal NEG [facility] Comment on above: Performed By: #### N UM #### [facility] ([id number]) [address] [place] [address] [place] [address] NITRITE LEIDA Negative Normal NEG [facility] Comment on above: Performed By: #### N UM #### [facility] ([id number]) [address] [place] [address] [place] [address] PH LEIDA 6.0 Normal 5.0-8.5 [facility] Comment on above: Performed By: #### N UM #### [facility] ([id number]) [address] [place] [address] [place] [address] PROTEIN LEIDA Negative Normal NEG [facility] Comment on above: Performed By: #### N UM #### [facility] ([id number]) [address] [place] [address] [place] [address] SPECIFIC GRAVITY LEIDA 1.025 Normal 1.003-1.035 [facility] Comment on above: Performed By: #### N UM #### [facility] ([id number]) [address] [place] [address] UROBILINOGEN LEIDA 0.2 eu/dL Normal <1.1 [facility] Comment on above: Performed By: #### N UM #### [facility] ([id number]) [address] [place] [address] XR CHEST 1 VWon 11-04-2024 XR CHEST 1 VW XR CHEST 1 VW History: Palpitations Exam/Technique: Portable upright AP chest Comparison: 11/12/2022 Findings: There is no active pulmonary or pleural disease displayed. Cardiac and mediastinal contours appear within normal limits on this AP projection. IMPRESSION: No evidence of active pulmonary disease. 7 Finalized by Tres Giron MD on 11/04/2024 1:02 AM Normal [facility] ALL PROGESTERONEon 5 PROGESTERONE 13.8 ng/mL . [facility] Health are Comment on above: Follicular phase 0.1 - 0.9 Luteal phase 1.8 - 23.9 Ovulation phase 0.1 - 12.0 First trimester 11.0 - 44.3 Second trimester 25.4 - 83.3 Third trimester 58.7 - 214.0 Postmenopausal 0.0 - 0.1 Performed at: [facility] [id number] Forming Machine Operator: Yobany Blount PhD, Phone: [phone] [facility] Healthcar e ALL PROGESTERONEon 5 PROGESTERONE 22.3 ng/mL . [facility] Health are Comment on above: Follicular phase 0.1 - 0.9 Luteal phase 1.8 - 23.9 Ovulation phase 0.1 - 12.0 First trimester 11.0 - 44.3 Second trimester 25.4 - 83.3 Third trimester 58.7 - 214.0 Postmenopausal 0.0 - 0.1 Performed at: [employer] [id number] [employer] Machine Operator: Yobany Blount PhD, Phone: [phone] [facility] ALL PROGESTERONEon 4 PROGESTERONE 8.5 ng/mL . [facility] Comment on above: Follicular phase 0.1 - 0.9 Luteal phase 1.8 - 23.9 Ovulation phase 0.1 - 12.0 First trimester 11.0 - 44.3 Second trimester 25.4 - 83.3 Third trimester 58.7 - 214.0 Postmenopausal 0.0 - 0.1 Performed at: [address] [id number] Forming Machine Operator: Yobany Blount PhD, Phone: [phone] [facility] ALL PROGESTERONEon 4 PROGESTERONE 16.8 ng/mL . [facility] Health are Comment on above: Follicular phase 0.1 - 0.9 Luteal phase 1.8 - 23.9 Ovulation phase 0.1 - 12.0 First trimester 11.0 - 44.3 Second trimester 25.4 - 83.3 Third trimester 58.7 - 214.0 Postmenopausal 0.0 - 0.1 Performed at: [address] [id number] Forming Machine Operator: Yobany Blount PhD, Phone: [phone] [facility] [employer] e ALL CBC WITH AUTO DIFFon BASOPHILS ABSOLUTE AUTO 0.1 [facility] Basophils/100 WBC (Bld) 0.6 % 0.2 - 2.0 % [facility] Healthcare Eosinophils/100 WBC (Bld) 2.8 % 0.9 - 7.0 % [facility] Erythrocyte distribution width (RBC) [Ratio] 12.1 % 11.0 - 15.0 % [facility] Hematocrit (Bld) [Volume fraction] 40.6 % 36.0 - 48.0 % [facility] Health[facility] Hemoglobin (Bld) [Mass/Vol] 13.5 g/dL 12.0 - 16.0 g/dL [facility] IMMATURE GRANULOCYTES ABS AUTO 0.02 [facility] Immature granulocytes/100 WBC (Bld) 0.3 % 0.0 - 0.5 % [facility] LYMPHOCYTES ABSOLUTE AUTO 1.8 [facility] Lymphocytes/100 WBC (Bld) 23.0 % 20.5 - 60.0 % [facility] MCH (RBC) [Entitic mass] 30.6 pg 26.7 - 34.0 pg [facility] MCHC (RBC) [Mass/Vol] 33.3 g/dL 29.9 - 35.2 g/dL [facility] MCV (RBC) [Entitic vol] 92.1 fL 81.0 - 99.0 fL [facility] MONOCYTES ABSOLUTE AUTO 0.5 [facility] Monocytes/100 WBC (Bld) 6.6 % 1.7 - 12.0 % [facility] NEUTROPHILS ABSOLUTE AUTO 5.3 [facility] Neutrophils/100 WBC (Bld) 66.7 % 43.0 - 75.0 % [facility] Platelet mean volume (Bld) [Entitic vol] 9.8 fL 9.5 - 13.5 fL [facility] Healthc are TBH EO # 0.2 [facility] TB PLT 284 [facility] TB RBC 4.41 [facility] TBH WBC 8.0 [facility] CLINIS[facility]NC [facility] ALL CBC WITH AUTO DIFFon BASOPHILS ABSOLUTE AUTO 0.1 [facility] Basophils/100 WBC (Bld) 0.5 % 0.2 - 2.0 % [facility] Eosinophils/100 WBC (Bld) 2.8 % 0.9 - 7.0 % [facility] Erythrocyte distribution width (RBC) [Ratio] 12.0 % 11.0 - 15.0 % [facility] Hematocrit (Bld) [Volume fraction] 39.7 % 36.0 - 48.0 % [facility] Healthcar e Hemoglobin (Bld) [Mass/Vol] 13.4 g/dL 12.0 - 16.0 g/dL [facility] IMMATURE GRANULOCYTES ABS AUTO 0.03 [facility] Immature granulocytes/100 WBC (Bld) 0.3 % 0.0 - 0.5 % [facility] Interpretation and review of laboratory results Abnormal [facility] LYMPHOCYTES ABSOLUTE AUTO 2.9 [facility] Lymphocytes/100 WBC (Bld) 24.4 % 20.5 - 60.0 % [facility] MCH (RBC) [Entitic mass] 30.7 pg 26.7 - 34.0 pg [facility] MCHC (RBC) [Mass/Vol] 33.8 g/dL 29.9 - [...] POCT EKGOrdered By: Sheyla Powell on 03-13-[address] [facility] No Panel InformationOrdered By: Pinky Singh on 11-24-2023 Quick Strep (POC) [facility] Cytology Cervical or vaginal smear or scraping studyon 11-19-2022 [facility] COVID/FLU/RSV RT-PCRon 10-11 SARS-CoV-2 (COVID-19) RNA PEACE+probe Ql (Unsp spec) Positive [facility] Traansmission Other COVID/FLU/RSV RT-PCR Negative [facility] Traansmission Other Vital Signs Date Time Vital Sign Value Performing Clinician Facility 05-17-2025 07:51-0400 Body height 172.7 cm Sheila Cruz MD Work Phone: [facility] 05-17-2025 07:51-0400 Body mass index (BMI) [Ratio] 42.96 kg/m2 Sheila Cruz MD Work Phone: [facility] 05-17-2025 07:51-0400 Body weight 128.14 kg Sheila Cruz MD Work Phone: [facility] 05-17-2025 07:51-0400 Diastolic blood pressure 84 mm[Hg] Sheila Cruz MD Work Phone: [facility] 05-17-2025 07:51-0400 Heart rate 87 /min Sheila Cruz MD Work Phone: [facility] 05-17-2025 07:51-0400 Systolic blood pressure 147 mm[Hg] Sheila Cruz MD Work Phone: [facility] 04-25-2025 11:30-0400 Body mass index (BMI) [Ratio] 42.88 kg/m2 Caesar Davie DO Work Phone: [facility] 04-25-2025 11:30-0400 Body weight 127.91 kg Caesar Davie DO Work Phone: [facility] 04-25-2025 11:30-0400 Diastolic blood pressure 82 mm[Hg] Caesar Davie DO Work Phone: [facility] 04-25-2025 11:30-0400 Systolic blood pressure 138 mm[Hg] Caesar Davie DO Work Phone: [facility] 04-11-2025 11:00-0400 Body mass index (BMI) [Ratio] 42.63 kg/m2 Caesar Davie DO Work Phone: [facility] 04-11-2025 11:00-0400 Body weight 127.19 kg Caesar Davie DO Work Phone: [facility] 04-11-2025 11:00-0400 Diastolic blood pressure 86 mm[Hg] Caesar Davie DO Work Phone: [facility] 04-11-2025 11:00-0400 Systolic blood pressure 140 mm[Hg] Caesar Davie DO Work Phone: [facility] 03-28-2025 11:42-0400 Body mass index (BMI) [Ratio] 42.29 kg/m2 Caesar Davie DO Work Phone: [facility] 03-28-2025 11:42-0400 Body weight 126.15 kg Caesar Davie DO Work Phone: [facility] 03-28-2025 11:42-0400 Diastolic blood pressure 80 mm[Hg] Caesar Davie DO Work Phone: [facility] 03-28-2025 11:42-0400 Systolic blood pressure 138 mm[Hg] Caesar Davie DO Work Phone: [facility] 03-01-2025 10:03-0400 Body mass index (BMI) [Ratio] 41.66 kg/m2 Davie Ob [facility] 03-01-2025 10:03-0400 Body weight 124.29 kg Davie Ob [facility] 03-01-2025 10:03-0400 Diastolic blood pressure 76 mm[Hg] Davie Ob [facility] 03-01-2025 10:03-0400 Systolic blood pressure 124 mm[Hg] Davie Ob [facility] 01-03-2025 10:52-0400 Body height 172.7 cm Robbie Lopez MD Work Phone: [facility] 01-03-2025 10:52-0400 Body mass index (BMI) [Ratio] 40.84 kg/m2 Robbie Lopez MD Work Phone: [facility] 01-03-2025 10:52-0400 Body temperature 97.81 [degF] Robbie Lopez MD Work Phone: [facility] 01-03-2025 10:52-0400 Body weight 121.84 kg Robbie Lopez MD Work Phone: [facility] 01-03-2025 10:52-0400 Diastolic blood pressure 78 mm[Hg] Robbie Lopez MD Work Phone: [facility] 01-03-2025 10:52-0400 Heart rate 73 /min Robbie Lopez MD Work Phone: [facility] 01-03-2025 10:52-0400 Systolic blood pressure 132 mm[Hg] Robbie Lopez MD Work Phone: [facility] 12-18-2024 13:38-0400 Body mass index (BMI) [Ratio] 40.35 kg/m2 Caesar Davie DO Work Phone: [facility] 12-18-2024 13:38-0400 Body weight 120.39 kg Caesar Davie DO Work Phone: [facility] 12-18-2024 13:38-0400 Diastolic blood pressure 72 mm[Hg] Caesar Davie DO Work Phone: [facility] 12-18-2024 13:38-0400 Systolic blood pressure 118 mm[Hg] Caesar Davie DO Work Phone: [facility] 12-10-2024 14:36-0400 Body mass index (BMI) [Ratio] 40.75 kg/m2 Caesar Davie DO Work Phone: [facility] 12-10-2024 14:36-0400 Body weight 121.56 kg Caesar Davie DO Work Phone: [facility] 12-10-2024 14:36-0400 Diastolic blood pressure 78 mm[Hg] Caesar Davie DO Work Phone: [facility] 12-10-2024 14:36-0400 Systolic blood pressure 130 mm[Hg] Caesar Davie DO Work Phone: [facility] 11-12-2024 14:03-0400 Diastolic blood pressure 86 mm[Hg] Caesar Davie DO Work Phone: [facility] 11-12-2024 14:03-0400 Systolic blood pressure 120 mm[Hg] Caesar Davie DO Work Phone: [facility] 07-23-2024 13:12-0500 Body mass index (BMI) [Ratio] 40.01 kg/m2 Caesar Davie DO Work Phone: [facility] 07-23-2024 13:12-0500 Body weight 119.35 kg Caesar Davie DO Work Phone: [facility] 07-23-2024 13:12-0500 Diastolic blood pressure 78 mm[Hg] Caesar Davie DO Work Phone: [facility] 07-23-2024 13:12-0500 Systolic blood pressure 130 mm[Hg] Caesar Davie DO Work Phone: [facility] 06-11-2024 14:39-0400 Body height 172.7 cm Caesar Davie DO Work Phone: [facility] 06-11-2024 14:39-0400 Body mass index (BMI) [Ratio] 39.53 kg/m2 Caesar Davie DO Work Phone: [facility] 06-11-2024 14:39-0400 Body weight 117.94 kg Caesar Davie DO Work Phone: [facility] 06-11-2024 14:39-0400 Diastolic blood pressure 76 mm[Hg] Caesar Davie DO Work Phone: [facility] 06-11-2024 14:39-0400 Systolic blood pressure 128 mm[Hg] Caesar Davie DO Work Phone: [facility] 05-03-2024 11:39-0400 Body weight 118.84 kg Caesar Davie DO Work Phone: [facility] 05-03-2024 11:39-0400 Diastolic blood pressure 78 mm[Hg] Caesar Davie DO Work Phone: [facility] 05-03-2024 11:39-0400 Systolic blood pressure 130 mm[Hg] Caesar Davie DO Work Phone: [facility] 04-10-2024 09:36-0400 Body weight 120.57 kg Caesar Davie DO Work Phone: [facility] 04-10-2024 09:36-0400 Diastolic blood pressure 78 mm[Hg] Caesar Davie DO Work Phone: [facility] 04-10-2024 09:36-0400 Systolic blood pressure 130 mm[Hg] Caesar Davie DO Work Phone: [facility] 03-13-2024 10:50-0400 Body height 172.7 cm James Fraire MD Work Phone: [facility] 03-13-2024 10:50-0400 Body mass index (BMI) [Ratio] 40.66 kg/m2 James Fraire MD Work Phone: [facility] 03-13-2024 10:50-0400 Body weight 121.29 kg James Fraire MD Work Phone: [facility] 03-13-2024 10:50-0400 Diastolic blood pressure 94 mm[Hg] James Fraire MD Work Phone: [facility] 03-13-2024 10:50-0400 Heart rate 83 /min Jamse Fraire MD Work Phone: [facility] 03-13-2024 10:50-0400 SaO2% (BldA) [Mass fraction] 98 % James Fraire MD Work Phone: [facility] 03-13-2024 10:50-0400 Systolic blood pressure 136 mm[Hg] James Fraire MD Work Phone: [facility] 11-24-2023 12:26-0400 Body height 172.72 cm [facility] 11-24-2023 12:26-0400 Body mass index (BMI) [Ratio] 42.6 kg/m2 [facility] 11-24-2023 12:26-0400 Body temperature 97.3 [degF] [facility] 11-24-2023 12:26-0400 Body weight 127.11 kg [facility] 11-24-2023 12:26-0400 Diastolic blood pressure 84 mm[Hg] [facility] 11-24-2023 12:26-0400 Heart rate 75 /min [facility] 11-24-2023 12:26-0400 Respiratory rate 18 /min [facility] 11-24-2023 12:26-0400 SaO2% (BldA) [Mass fraction] 98 % [facility] 11-24-2023 12:26-0400 Systolic blood pressure 130 mm[Hg] [facility] 10-11-2022 11:35-0500 Body height 172.72 cm Pinky Singh Other [facility] Other 10-11-2022 11:35-0500 Body mass index (BMI) [Ratio] 42.27 kg/m2 Pinky Singh Other [facility] Other 10-11-2022 11:35-0500 Body temperature 97.8 [degF] Pinky Singh Other [facility] Other 10-11-2022 11:35-0500 Body weight 126.1 kg Pinky Singh Other [facility] Other 10-11-2022 11:35-0500 Respiratory rate 18 /min Pinky Singh Other [facility] Other 10-11-2022 11:35-0500 SaO2% (BldA) [Mass fraction] 98 % Pinky Singh Other [facility] Other Encounters Encounter Date Encounter Type Care Provider Facility Start: 05-17-2025 End: 05-17-2025 Orders Only Bethany Lundy LPN [facility] Comment on above: Acute palmoplantar p ustular psoriasis (Primary Dx); Chronic hypertension affecting ; Severe obesity due to excess calories affecting , antepartum ([facility]); Hypertension affecting in second trimester Start: 05-17-2025 End: 05-17-2025 Office consultation new/estab patient 60 min Clair Hare MD Work Phone: [facility] Comment on above: Chronic hypertension affecting (Primary Dx); Acute palmoplantar pustular psoriasis; Severe obesity due to excess calories affecting , antepartum ([facility]); 20 weeks gestation of Start: 04-29-2025 End: 04-29-2025 Emergency department patient visit [facility] Start: 04-25-2025 End: 04-25-2025 Bamboo flowsheet Caesar Davie DO Work Phone: [facility] Start: 04-25-2025 End: 04-25-2025 Bamboo flowsheet Caesar Davie DO Work Phone: [facility] Start: 04-25-2025 End: 04-25-2025 Office outpatient visit 15 minutes Caesar Davie DO Work Phone: [facility] Comment on above: Screening, , for anatomic survey ([facility]); Second trimester ([facility]); 17 weeks gestation of ([facility]); Screen for STD (sexually transmitted disease); Need for maternal serum alpha-protein (MSAFP) screening ([facility]); induced hypertension, antepartum ([facility]); Vitamin D deficiency Start: 04-25-2025 End: 04-25-2025 ambulatory CAESAR DAVIE Not Available Start: 04-23-2025 End: 04-23-2025 Chart abstracting Sheila Cruz MD Work Phone: [facility] Start: 04-21-2025 End: 04-21-2025 Clinisync Result Encounter Caesar Davie DO Work Phone: [facility] Unsolicited Start: 04-21-2025 End: 04-21-2025 Clinisync Result Encounter Caesar Davie DO Work Phone: [facility] Unsolicited Start: 04-19-2025 End: 04-19-2025 Orders Only Joann Moise RN [facility] Comment on above: Hypertension affecti ng in [...] minutes Caesar Davie DO Work Phone: [facility] Comment on above: 15 weeks gestation o f ([facility]); Second trimester ([facility]); Acute nonintractable headache, unspecified headache type; BP check; Gestational hypertension, antepartum ([facility]); induced hypertension, antepartum ([facility]) Start: 04-11-2025 End: 04-11-2025 Patient encounter status Caesar Davie DO Work Phone: [facility] Start: 04-11-2025 End: 04-11-2025 ambulatory CAESAR DAVIE Not Available Start: 03-28-2025 End: 03-28-2025 Bamboo flowsheet Caesar Davie DO Work Phone: [facility] Start: 03-28-2025 End: 03-28-2025 Bamboo flowsheet Caesar Davie DO Work Phone: [facility] Start: 03-28-2025 End: 03-28-2025 Office outpatient visit 15 minutes Caesar Davie DO Work Phone: [facility] Comment on above: 13 weeks gestation o f ([facility]); Second trimester ([facility]); Acute nonintractable headache, unspecified headache type Start: [...] encounter status Robbie Lopez MD Work Phone: [facility] Work Phone: Start: 01-03-2025 End: 01-03-2025 ambulatory ROBBIE LOPEZ [facility] Start: 01-03-2025 End: 01-03-2025 Encounter for preprocedural laboratory examination ROBBIE LOPEZ [facility] Start: 12-18-2024 End: 12-26-2024 External Result Encounter Caesar Davie DO Work Phone: [facility] Unsolicited Start: 12-18-2024 End: 12-26-2024 External Result Encounter Caesar Davie DO Work Phone: [facility] Unsolicited Start: 12-18-2024 End: 12-18-2024 Patient encounter procedure Caesar Davie DO Work Phone: [facility] Comment on above: Skin mole Start: 12-18-2024 End: 12-18-2024 ambulatory Caesar Davie [facility] Work Phone: Start: 12-18-2024 End: 12-18-2024 Departed Referred Caesar Davie DO Work Phone: [facility] Start: 12-17-2024 End: 12-18-2024 Clinisync Result Encounter Caesar Davie DO Work Phone: [facility] Unsolicited Start: 12-17-2024 End: 12-18-2024 Clinisync Result Encounter Ceasar Davie DO Work Phone: [facility] [...] 11-03-2024 End: 11-04-2024 Emergency department patient visit [facility] Start: 10-18-2024 End: 10-19-2024 Clinisync Result Encounter [...] Result Encounter Caesar Davie DO Work Phone: [facility] External Department Unsolicited Start: 06-01-2024 End: 06-01-2024 Clinisync Result Encounter Caesar Davie DO Work Phone: [facility] External Department Unsolicited Start: 05-03-2024 End: 05-03-2024 Office outpatient visit 15 minutes Caesar Davie DO Work Phone: [facility] Comment on above: Pre-op examination; Pelvic pain in female; Fallopian tube disorder Start: 05-03-2024 End: 05-03-2024 Preprocedural examination done Caesar Davie DO Work Phone: [facility] Start: 05-03-2024 End: 05-03-2024 ambulatory CAESAR DAVIE Not Available Start: 04-24-2024 End: 04-24-2024 Clinisync Result Encounter Caesar Davie DO Work Phone: [facility] External Department Unsolicited Start: 04-24-2024 End: 04-24-2024 Clinisync Result Encounter Caesar Davie DO Work Phone: [facility] External Department Unsolicited Start: 04-10-2024 End: 04-10-2024 Bamboo flowsheet Caesar Davie DO Work Phone: [facility] Start: 04-10-2024 End: 04-10-2024 Bamboo flowsheet Caesar Davie DO Work Phone: [facility] Start: 04-10-2024 End: 04-10-2024 Office outpatient visit 15 minutes Caesar Davie DO Work Phone: [facility] Comment on above: Encounter for fertil [...] Physicians Cardiology Start: 11-24-2023 End: 11-24-2023 ambulatory [facility] Work Phone: Start: 11-24-2023 End: 11-24-2023 Patient encounter procedure [facility] Work Phone: Start: 10-11-2022 End: 10-11-2022 ambulatory Pinky Singh Other [place] [employer] Other Start: 10-11-2022 Office outpatient ne w [...] hin layer prep mnl screen Bethany Raymundo [employer] Work Phone: Plan of Treatment Date Care Activity Detail Author Start: 2042 Zoster Vaccines (1 of 2) Zoster Vaccines (1 of 2) [facility] Start: 12-11-2027 Screening for malignant neoplasm of cervix [facility] Start: 11-24-2027 Screening for malignant neoplasm of cervix [facility] Start: 05-17-2026 Adult BMI Screening Adult BMI Screening [facility] Start: 05-17-2026 Tobacco Screening Tobacco Screening [facility] Start: 12-16-2025 End: 12-16-2025 Patient encounter procedure [facility] Start: 11-23-2025 Screening for malignant neoplasm of cervix Pap Smear [facility] Start: 11-19-2025 Screening for malignant neoplasm of cervix Pap Smear [facility] Start: 11-03-2025 Tobacco Screening Tobacco Screening [facility] Start: 06-18-2025 End: 06-18-2025 Telemedicine consultation with patient 06/18/2025 2:00 PM EDT Telemedicine [facility] [address] [place] [id number] Sheila Cruz MD [address] [facility] [address] [place] [address] Maternal- Medicine at [facility] Start: 06-18-2025 End: 06-18-2025 Patient encounter procedure 06/18/2025 8:00 AM EDT Appointment [facility] - Ultrasound [address] [place] [address] [facility] - Ultrasound Start: 05-25-2025 End: 05-25-2025 Alpha fetoprotein, maternal Alpha fetoprotein, maternal Lab Routine Need for maternal serum alpha-protein (MSAFP) screening ([facility]) Expected: 05/25/2025 (Approximate), Expires: 05/25/2025 [facility] Comment on above: Expected: 05/25/2025 (Approximate), Expi res: 05/25/2025 Start: 05-23-2025 End: 05-23-2025 Patient encounter procedure 05/23/2025 2:30 PM EDT Routine LIANA HEAD [address] [place] [address] Rosie Qiu, MEMBERSHIP DIRECTOR [address] [place] [address] LIANA HEAD Start: 05-20-2025 End: 04-19-2026 US MFM with or without consult US MFM with or without consult Imaging Routine Hypertension affecting in second trimester Expected: 05/20/2025 (Approximate), Expires: 04/19/2026 [facility] Work Phone: Comment on above: Expected: 05/20/2025 (Approximate), Expi res: 04/19/2026 Start: 05-17-2025 End: 05-17-2026 US MFM with or without consult US MFM with or without consult Imaging Routine 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 Severe obesity due to excess calories affecting , antepartum ([facility]) Hypertension affecting in second trimester Expected: 05/17/2025, Expires: 05/17/2026 [facility] Work Phone: Comment on above: Expected: 05/17/2025, Expires: Start: 05-17-2025 End: 05-17-2025 Patient encounter procedure [facility] US Imaging Start: 04-25-2025 End: 04-25-2025 Patient encounter procedure [facility] Latoya HEAD Comment on above: Arrived Start: 04-22-2025 Influenza vaccination [facility] Start: 04-11-2025 End: 04-11-2026 Alanine aminotransferase [Enzymatic activity/volume] in Serum or Plasma ALT Lab Routine Gestational hypertension, antepartum ([facility]-HCC) induced hypertension, antepartum ([facility]HS-HCC) Expected: 04/11/2025 (Approximate), Expires: 04/11/2026 [facility] Comment on above: Expected: 04/11/2025 (Approximate), Expi res: 04/11/2026 Start: 04-11-2025 End: 04-11-2026 Aspartate aminotransferase [Enzymatic activity/volume] in Serum or Plasma AST Lab Routine Gestational hypertension, antepartum ([facility]-HCC) induced hypertension, antepartum (HHS-HCC) Expected: 04/11/2025 (Approximate), Expires: 04/11/2026 [facility] Comment on above: Expected: 04/11/2025 (Approximate), Expi res: 04/11/2026 Start: 04-11-2025 End: 04-11-2026 CBC W Auto Differential panel - Blood CBC and differential Lab Routine Gestational hypertension, antepartum (HHS-HCC) induced hypertension, antepartum (HHS-HCC) Expected: 04/11/2025 (Approximate), Expires: 04/11/2026 [facility] Comment on above: Expected: 04/11/2025 (Approximate), Expi res: 04/11/2026 Start: 04-11-2025 End: 04-11-2026 Creatinine [Mass/volume] in Serum or Plasma Creatinine Lab Routine Gestational hypertension, antepartum (HHS-HCC) induced hypertension, antepartum (HHS-HCC) Expected: 04/11/2025 (Approximate), Expires: 04/11/2026 [facility] Work Phone: Comment on above: Expected: 04/11/2025 (Approximate), Expi res: 04/11/2026 Start: 04-11-2025 End: 04-11-2026 Lactate dehydrogenase [Enzymatic activity/volume] in Serum or Plasma by Lactate to pyruvate reaction Lactate dehydrogenase Lab Routine Gestational hypertension, antepartum (HHS-HCC) induced hypertension, antepartum (HHS-HCC) Expected: 04/11/2025, Expires: 04/11/2026 [facility] Comment on above: Expected: 04/11/2025, Expires: Start: 04-11-2025 End: 04-11-2026 Protein, urine, 24 hour Protein, urine, 24 hour Lab Routine Gestational hypertension, antepartum (HHS-HCC) induced hypertension, antepartum (HHS-HCC) Expected: 04/11/2025 (Approximate), Expires: 04/11/2026 [facility] Comment on above: Expected: 04/11/2025 (Approximate), Expi res: 04/11/2026 Start: 04-11-2025 End: 04-11-2026 Pt and ptt Pt and ptt Lab Routine Gestational hypertension, antepartum (HHS-HCC) induced hypertension, antepartum (HHS-HCC) Expected: 04/11/2025, Expires: 04/11/2026 [facility] Comment on above: Expected: 04/11/2025, Expires: Start: 04-11-2025 End: 04-11-2026 Urate [Mass/volume] in Serum or Plasma Uric acid Lab Routine Gestational hypertension, antepartum (HHS-HCC) induced hypertension, antepartum (HHS-HCC) Expected: 04/11/2025 (Approximate), Expires: 04/11/2026 [facility] Comment on above: Expected: 04/11/2025 (Approximate), Expi res: 04/11/2026 Start: 04-11-2025 End: 04-11-2026 Urea nitrogen [Mass/volume] in Serum or Plasma BUN Lab Routine Gestational hypertension, antepartum (HHS-HCC) induced hypertension, antepartum (HHS-HCC) Expected: 04/11/2025, Expires: 04/11/2026 [facility] Comment on above: Expected: 04/11/2025, Expires: Start: 04-11-2025 End: 04-11-2025 Patient encounter procedure [facility] Comment on above: Arrived Start: 03-28-2025 End: 03-28-2025 Patient encounter procedure [facility] Comment on above: Arrived Start: 03-13-2025 Adult BMI Screening Adult BMI Screening [facility] Start: 03-13-2025 Tobacco Screening Tobacco Screening [facility] Start: 03-01-2025 End: 03-01-2026 ABO/Rh ABO/Rh Lab Routine Missed menses , unspecified gestational age ([facility]) Expected: 03/01/2025 (Approximate), Expires: 03/01/2026 [facility] Comment on above: Expected: 03/01/2025 (Approximate), Expi res: 03/01/2026 Start: 03-01-2025 End: 03-01-2026 Blood type and Indirect antibody screen panel - Blood Type and screen Lab Routine Missed menses , unspecified gestational age ([facility]) Expected: 03/01/2025 (Approximate), Expires: 03/01/2026 [facility] Work Phone: Comment on above: Expected: 03/01/2025 (Approximate), Expi res: 03/01/2026 Start: 03-01-2025 End: 03-01-2026 Drugs of abuse panel - Urine by Screen method Rapid drug screen, urine Lab Routine , unspecified gestational age ([facility]) Encounter for supervision of normal first in first trimester ([facility]) Expected: 03/01/2025 (Approximate), Expires: 03/01/2026 [facility] Comment on above: Expected: 03/01/2025 (Approximate), Expi res: 03/01/2026 Start: 02-03-2025 End: 04-05-2025 Choriogonadotropin ( test) [Presence] in Urine POCT , urine manually resulted Point of Care Testing Routine Encounter for preprocedural laboratory examination Expected: 02/03/2025 (Approximate), Expires: 04/05/2025 [facility] Work Phone: Comment on above: Expected: 02/03/2025 (Approximate), Expi res: 04/05/2025 Start: 02-03-2025 End: 01-03-2026 Sonohysterogram Sonohysterogram Procedures Routine Abnormal uterine bleeding Expected: 02/03/2025 (Approximate), Expires: 01/03/2026 [facility] Service Area Work Phone: Comment on above: Expected: 02/03/2025 (Approximate), Expi res: 01/03/2026 Start: 02-03-2025 End: 01-03-2026 US.doppler Uterus and Fallopian tubes W saline IU US sonohysterogram Imaging Routine Abnormal uterine bleeding Expected: 02/03/2025 (Approximate), Expires: 01/03/2026 [facility] Work Phone: Comment on above: Expected: 02/03/2025 (Approximate), Expi res: 01/03/2026 Start: 12-18-2024 End: 12-18-2024 Patient encounter procedure 12/18/2024 1:30 PM EDT Procedure Visit [facility] [address] [place] [address] Caesar Broderick, [address] [place] [address] [facility] Start: 12-18-2024 [facility] Start: 12-10-2024 End: 12-10-2024 Patient encounter procedure [facility] Comment on above: Arrived Start: 11-12-2024 End: 11-12-2024 Patient encounter procedure [facility] Comment on above: Arrived Start: 07-23-2024 End: 07-23-2024 Patient encounter procedure 07/23/2024 1:00 PM EST Office Visit [facility] [address] [place] [address] Caesar Broderick, DO [address] [place] [address] [facility] Start: 06-11-2024 End: 06-11-2024 Patient encounter procedure 06/11/2024 2:20 PM EDT Office Visit [facility] [address] [place] [address] Caesar Broderick, DO [address] [place] [address] Arrived [facility] Comment on above: Arrived Start: 06-01-2024 End: 06-01-2024 Patient encounter procedure 06/01/2024 8:30 AM EDT Procedure Visit [facility] Caesar Broderikc, DO [address] [place] [address] [facility] Start: 05-03-2024 End: 05-03-2024 Patient encounter procedure 05/03/2024 11:40 AM EDT Consult [facility] [address] [place] [address] Caesar Broderick, DO [address] [place] [address] [facility] Start: 04-22-2024 COVID-19 Vaccine ( season) COVID-19 Vaccine ( season) [facility] Start: 04-22-2024 Influenza vaccination [facility] Start: 04-10-2024 End: 04-10-2025 Antimullerian hormone (AMH) Antimullerian hormone (AMH) Lab Routine PCOS (polycystic ovarian syndrome) Expected: 04/10/2024 (Approximate), Expires: 04/10/2025 [facility] Comment on above: Expected: 04/10/2024 (Approximate), Expi res: 04/10/2025 Start: 04-10-2024 End: 04-10-2025 DHEA DHEA Lab Routine PCOS (polycystic ovarian syndrome) Expected: 04/10/2024 (Approximate), Expires: 04/10/2025 [facility] Comment on above: Expected: 04/10/2024 (Approximate), Expi res: 04/10/2025 Start: 04-10-2024 End: 04-10-2025 US for US PELVIS-TRANSVAG IF INDICATED Imaging Routine PCOS (polycystic ovarian syndrome) Pelvic pain in female Expected: 04/10/2024 (Approximate), Expires: 04/10/2025 [facility] Comment on above: Expected: 04/10/2024 (Approximate), Expi res: 04/10/2025 Start: 04-10-2024 End: 04-10-2024 Patient encounter procedure 04/10/2024 9:10 AM EDT Office Visit [facility] [address] [place] [address] Caesar Broderick DO [address] [place] [address] Arrived [facility] Comment on above: Arrived Start: 03-13-2024 End: 03-13-2024 Patient encounter procedure 03/13/2024 11:00 AM EDT Office Visit [facility] [address] [place] [address] James Fraire MD [address] [place] [phone] [facility] Start: 01-21-2024 Adult BMI Screening Adult BMI Screening [facility] Start: 01-21-2024 Tobacco Screening Tobacco Screening [facility] Start: 2014 DTaP/Tdap/Td Vaccines (1 - Tdap) DTaP/Tdap/Td Vaccines (1 - Tdap) [facility] Start: 2013 Screening for malignant neoplasm of cervix HPV/Cotest [facility] Start: 2011 DTaP,Tdap and Td Vaccines (1 - Tdap) DTaP,Tdap and Td Vaccines (1 - Tdap) [facility] Start: 2011 Hepatitis B Vaccines (1 of 3 - 19+ 3-dose series) Hepatitis B Vaccines (1 of 3 - 19+ 3-dose series) [facility] Start: 2010 Adult BMI Follow Up Plan Adult BMI Follow Up Plan [facility] Start: 2010 Hepatitis C screening Hepatitis C Screening [facility] Start: 2005 Varicella vaccination Varicella Vaccines (1 of 2 - 13+ 2-dose series) [facility] Start: 2004 Depression Screening Depression Screening [facility] Start: 1993 MMR Vaccines (1 of 1 - Standard series) MMR Vaccines (1 of 1 - Standard series) [facility] Start: 1992 HIV screening HIV Screening [facility] Start: 1992 Lipid panel Lipid Panel [facility] Start: 1992 Yearly Adult Physical Yearly Adult Physical [facility] Bacteria identified in Urine by Culture Urine culture Microbiology Routine Missed menses Ordered: 03/01/2025 [facility] Comment on above: Ordered: 03/01/2025 CBC W Auto Different ial panel - Blood CBC and differential Lab Routine PCOS (polycystic ovarian syndrome) Ordered: 04/10/2024 [facility] Comment on above: Ordered: 04/10/2024 CBC W Auto Different ial panel - Blood CBC and differential Lab Routine Missed menses , unspecified gestational age ([facility]-H[facility]) Ordered: 03/01/2025 [facility] Comment on above: Ordered: 03/01/2025 CHLAMYDIA TRACHOMATI S (GENITO/STI) CHLAMYDIA TRACHOMATIS (GENITO/STI) Lab Routine Screen for STD (sexually transmitted disease) Ordered: 04/25/2025 [facility] Comment on above: Ordered: 04/25/2025 End: 05-17-2026 Creatinine, urine, 24 hour Creatinine, urine, 24 hour Lab Routine Chronic hypertension affecting 20 weeks gestation of 1 Occurrences starting 05/17/2025 until 05/17/2026 [facility] Comment on above: 1 Occurrences starting 05/17/2025 until 05/17/2026 Cytology Cervical or vaginal smear or scraping study Pap Smear Pathology and Cytology Routine Well woman exam with routine gynecological exam Ordered: 12/10/2024 [facility] Work Phone: Comment on above: Ordered: 12/10/2024 DHEA-sulfate DHEA-sulfate Lab Routine PCOS (polycystic ovarian syndrome) Ordered: 04/10/2024 [facility] Comment on above: Ordered: 04/10/2024 Follicle stimulating hormone Follicle stimulating hormone Lab Routine PCOS (polycystic ovarian syndrome) Ordered: 04/10/2024 [facility] Comment on above: Ordered: 04/10/2024 hCG, quantitative, hCG, quantitative, Lab Routine PCOS (polycystic ovarian syndrome) Ordered: 04/10/2024 [facility] Work Phone: Comment on above: Ordered: 04/10/2024 Hemoglobin A1c/Hemoglobin.total in Blood Hemoglobin A1c Lab Routine Pelvic pain in female Abnormal uterine bleeding (AUB) Ordered: 04/10/2024 [facility] Comment on above: Ordered: 04/10/2024 Hemoglobin A1c/Hemoglobin.total in Blood Hemoglobin A1c Lab Routine Missed menses , unspecified gestational age ([facility]HS-HCC) Ordered: 03/01/2025 [facility] Comment on above: Ordered: 03/01/2025 Hepatitis B virus matt rface Ag [Presence] in Serum or Plasma by Immunoassay Hepatitis B surface antigen Lab Routine Missed menses , unspecified gestational age ([facility]HS-HCC) Ordered: 03/01/2025 [facility] Comment on above: Ordered: 03/01/2025 Hepatitis C virus Ab [Presence] in Serum or Plasma by Immunoassay Hepatitis C antibody Lab Routine Missed menses , unspecified gestational age (HHS-HCC) Ordered: 03/01/2025 [facility] Comment on above: Ordered: 03/01/2025 HIV-1/HIV-2 antigen/antibody combination immunoassay HIV-1 and HIV-2 antibodies Lab Routine Missed menses , unspecified gestational age (HHS-HCC) Ordered: 03/01/2025 [facility] Comment on above: Ordered: 03/01/2025 Human papilloma viru s DNA [Presence] in Unspecified specimen by Probe with amplification HPV DNA probe, amplified Microbiology Routine Well woman exam with routine gynecological exam Ordered: 12/10/2024 [facility] Comment on above: Ordered: 12/10/2024 Luteinizing hormone Luteinizing hormone Lab Routine PCOS (polycystic ovarian syndrome) Ordered: 04/10/2024 [facility] Comment on above: Ordered: 04/10/2024 End: 05-17-2026 [...] weeks gestation of 05/17/2025 9:54 AM EDT [facility] Neisseria gonorrhoea e DNA [Presence] in Unspecified specimen by [facility] with probe detection Neisseria gonorrhea DNA probe, direct Lab Routine Screen for STD (sexually transmitted disease) Ordered: 04/25/2025 [facility] Comment on above: Ordered: 04/25/2025 End: 05-17-2026 Protein, urine, 24 hour Protein, urine, 24 hour Lab Routine Chronic hypertension affecting 20 weeks gestation of 1 Occurrences starting 05/17/2025 until 05/17/2026 [facility] Comment on above: 1 Occurrences starting 05/17/2025 until 05/17/2026 Reagin Ab [Presence] in Serum by RPR RPR Lab Routine Missed menses , unspecified gestational age ([facility]) Ordered: 03/01/2025 [facility] Comment on above: Ordered: 03/01/2025 Rubella antibody, IgG Rubella an tibody, IgG Lab Routine Missed menses , unspecified gestational age ([facility]) Ordered: 03/01/2025 [facility] Comment on above: Ordered: 03/01/2025 SURESWAB(R) ADVANCED VAGINITIS PLUS, TMA SURESWAB(R) ADVANCED VAGINITIS PLUS, TMA Pathology and Cytology Routine Screen for STD (sexually transmitted disease) Ordered: 04/25/2025 [facility] Work Phone: Comment on above: Ordered: 04/25/2025 Thyrotropin [Units/v olume] in Serum or Plasma TSH Lab Routine PCOS (polycystic ovarian syndrome) Ordered: 04/10/2024 [facility] Comment on above: Ordered: 04/10/2024 Thyroxine (T4) free [Mass/volume] in Serum or Plasma T4, free Lab Routine PCOS (polycystic ovarian syndrome) Ordered: 04/10/2024 [facility] Comment on above: Ordered: 04/10/2024 Payers Date Payer Category Payer Self-pay 2022 Medicaid [id number] 2022 Medicaid [id number] 2. [id number] 1992 Unknown [id number] 2.16.8 [id number] 1992 Unknown [id number] 2.16.8 [id number] 1992 Unknown [id number] 2.16.8 [id number] 1992 Unknown [id number] 2.16.8 [id number] 1992 Unknown [id number] 2.16.8 40.1.562724.3.579.2.9 1992 Unknown [id number] 2.16.84 [id number] 1992 Unknown [id number] 2.16.84 0.1.633069.3.579.2.9 1992 Unknown [id number] 2.16.84 0.1.501289.3.579.2.1258 1992 Unknown [id number] 2.16.84 0.1.265683.3.579.2.9 1992 Unknown [id number] 2.16.84 0.1.773167.3.579.2.9 1992 Unknown [id number] 2.16.84 0.1.144360.3.579.2.9 1992 Unknown [id number] 2.16. [id number] 1992 Unknown [id number] 2.16. [id number] Unknown [id number] 2.16.8 [id number] Social History Date Type Detail Facility Start: 02-22-2024 End: 05-17-2025 Sex Assigned At [facility] [facility] Start: 1990 Sex Assigned At Female F [facility] Tobacco smoking status NHIS Tobacco smoking consumption unknown [facility] Start: 1990 Sex assigned at Not on file [facility] [employer] [facility] Start: 10-09-2022 End: 01-03-2025 Tobacco smoking status NHIS Never smoked tobacco [facility] Start: 10-09-2022 End: 01-03-2025 Tobacco use and exposure Smokeless tobacco non-user [facility] Start: 02-22-2024 End: 05-17-2025 Alcoholic beverage intake Ex-drinker (finding) [facility] Start: 02-22-2024 End: 05-17-2025 History of Social function [facility] Within the past 12 months we worried whether our food would run out before we got money to buy more. 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 No Recent ER visits or hospitalizations? Yes, for slicing thumb on mandolin Bring blood sugar log or meter with you today? (Please bring them with you for every visit at [facility]) N/A Flu vaccine (Jun-October)? N/A Any [...] previously recommended threshold of 160/110. Reference: PMID: [id number], 2021. Blood pressures do increase as progresses [...] preeclampsia prevention as is recommended by the [place] [employer] Committee Opinion No. 743. 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 Patient does have ultrasound and office visit scheduled with us. Thank you for allowing me to participate in the care of Chayo Ramires. If there any questions please do not hesitate to contact us. Sheila Cruz MD Maternal- Medicine [place] [phone] [facility] [address] [place] [phone] This document was created with [employer] technology. Though I make every effort to review the dictation as it is transcribed, on occasion the spoken word can be misinterpreted by the technology leading to inappropriate words, phrases, or sentences. This note is addressed to the requesting provider as a consultation for clinical guidance. Specific medical abbreviations are occasionally used and those are generally approved by the [place]?Board of?Obstetrics and?Gynecology?as well as?Rama tapia abbreviations. The above plan of care was based solely on the diagnoses for which a consultation was requested. ?More frequent testing may be indicated based on her other medical/obstetrical conditions. The management of other or medical conditions is beyond the scope of requested consultation and will continue to be followed by the primary disk and tape machine tender or primary care provider. Note to patient: [...] Blood drawn for cell-free DNA testing per [facility] phlebotomy. Patient tolerated well. documented in this encounter [facility] [email or web address] 04-25-2025 History of Present illness Narrative Reason [...] (polycystic ovarian syndrome) 07/30/2024 induced hypertension, antepartum ([facility]) 04/25/2025 Resolved Ambulatory Problems Diagnosis Date Noted [...] nursing note reviewed. Exam conducted with a florist helper present. Vitals: Estimated body mass index is 42.88 kg/m as calculated from the following: Height as of 06/11/24: 5' 8 . Weight as of this encounter: 282 lb. BP: 138/82 Patient's last menstrual period was 12/26/2024. ASSESSMENT & PLAN ICD-10-CM 1. Screening, , for anatomic survey ([facility]) Z36.89 CANCELED: US OB 14+ weeks anatomy scan 2. Second trimester ([facility]) Z34.92 POCT urinalysis dipstick manually resulted 3. 17 weeks gestation of ([facility]) Z3A.17 4. Screen for STD (sexually transmitted disease) Z11.3 SURESWAB(R) ADVANCED VAGINITIS PLUS, TMA CHLAMYDIA TRACHOMATIS (GENITO/STI) Neisseria gonorrhea DNA probe, direct 5. Need for maternal serum alpha-protein (MSAFP) screening ([facility]) Z36.1 Alpha fetoprotein, maternal Alpha fetoprotein, maternal 6. induced hypertension, antepartum ([facility]) O13.9 7. Vitamin D deficiency E55.9 Return [...] Caesar Broderick DO documented in this encounter [facility] 04-11-2025 History of Present illness Narrative Reason [...] nursing note reviewed. Exam conducted with a florist helper present. Vitals: Estimated body mass index is 42.63 kg/m as calculated from the following: Height as of 06/11/24: 5' 8 . Weight as of this encounter: 280 lb 6.4 oz. BP: 140/86 Patient's last menstrual period was 12/26/2024. ASSESSMENT & PLAN ICD-10-CM 1. 15 weeks gestation of ([facility]) Z3A.15 POCT urinalysis dipstick manually resulted 2. Second trimester ([facility]) Z34.92 POCT urinalysis dipstick manually resulted 3. Acute nonintractable headache, unspecified headache type R51.9 4. BP check Z01.30 Patient presents today for a routine obstetrics appointment. Patient is currently 15w1d with a Estimated Date of Delivery: 10/02/25. Patient is having persistent elevated HTN. Discussed patient being referred to [facility] for management and recommendations for Gestational HTN. Patient is agreeable with referral. Patient to be started on Labetalol 200mg BID. Patient given labs and 24 hour urine to have obtained for baseline testing. Patient aware that once lab results are obtained then referral will be completed, so then all results can be sent to [facility] at onetime. Patient to return to clinic in 4 weeks for routine OB appointment. Patient to reach out to office with any concerns/questions. Documented by Karoline Casillas LPN on behalf of: Caesar Broderick DO documented in this encounter [facility] 03-28-2025 History of Present illness Narrative Reason [...] nursing note reviewed. Exam conducted with a florist helper present. Vitals: Estimated body mass index is 42.29 kg/m as calculated from the following: Height as of 24: 5' 8 . Weight as of this encounter: 278 lb 1.9 oz. BP: 138/80 Patient's last menstrual period was 12/26/2024. ASSESSMENT & PLAN ICD-10-CM 1. 13 weeks gestation of ([facility]) Z3A.13 POCT urinalysis dipstick manually resulted 2. Second trimester ([facility]) Z34.92 POCT urinalysis dipstick manually resulted magnesium [...] or undercooked meat, and stay away from [facility]. Patient has been consulted regarding any [...] Caesar Broderick DO documented in this encounter [facility] 03-01-2025 History of Present illness Narrative Reason [...] dipstick manually resulted , unspecified gestational age ([facility]) - Type and screen; Future - ABO/Rh; Future - CBC and differential - Hemoglobin A1c - RPR - Rubella antibody, IgG - Hepatitis B surface antigen - Hepatitis C antibody - HIV-1 and HIV-2 antibodies - Rapid drug screen, urine; Future Encounter for supervision of normal first in first trimester ([facility]) - Rapid drug screen, urine; Future 9 weeks gestation of ([facility]) Nurse Note: Pt uncertain of doing the [place] [employer] to one. Advised pt if she does to make sure both labs and [place] is done at the same time. PVU. Pt did state she had a Vit. D deficiency and has a h/o high blood pressure with G1. Kalani Swish tech advised patient showed in dating [place] [...] or undercooked meat, and stay away from [facility]. 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 Tadalafil - 10mg as needed Injuries: No STD: No Please select all that are applicable: SA: Yes SA Results: Yes -Done at [facility] 2023- reports was told normal, no report [...] history on file. documented in this encounter [facility] Work Phone: 01-03-2025 Instructions Robbie Lopez MD [...] 01/03/2025 11:05 AM documented in this encounter [facility] Work Phone: 12-18-2024 History of Present illness [...] nursing note reviewed. Exam conducted with a florist helper present. Vitals: Estimated body mass index [...] after allowing sufficient time to take affect. draft roller picker and scissors used to remove affected area. Placed in formalin and sent to pathology. Post-procedure instructions given. Follow Up: as needed Documented by Kita Griggs LPN on behalf of: Caesar Broderick DO documented in this encounter [facility] 12-10-2024 History of Present illness Narrative Reason [...] nursing note reviewed. Exam conducted with a florist helper present. Vitals: Estimated body mass index [...] Caesar Broderick DO documented in this encounter [facility] 11-12-2024 History of Present illness Narrative Reason [...] Caesar Broderick DO documented in this encounter [facility] 07-23-2024 History of Present illness Narrative Reason [...] nursing note reviewed. Exam conducted with a florist helper present. Vitals: Estimated body mass index [...] Caesar Broderick DO documented in this encounter [facility] 06-11-2024 History of Present illness Narrative Reason [...] nursing note reviewed. Exam conducted with a florist helper present. Vitals: Estimated body mass index [...] Caesar Broderick DO documented in this encounter [facility] 05-03-2024 History of Present illness Narrative Reason for Appointment: Patient ID: Chayo Ramires is a 34 y.o. female who presents for Pre-op Visit Patient presents today for Pre Op appointment. Patient is scheduled to undergo Diagnostic Laparoscopy, possible FLAKITO, possible FOE, possible BSO, possible Chromopertubation on 06/01/[address] Broderick at [facility]. MEDICATIONS Current Outpatient Medications Medication Instructions [...] nursing note reviewed. Exam conducted with a florist helper present. Vitals: There is no height [...] reviewed, and patient is to proceed to [facility] OR. Follow Up: Patient is to follow up between 1-2 weeks post operative to assess proper healing and recovery from procedure. Documented by Karoline Casillas LPN on behalf of: Caesar Broderick DO documented in this encounter [facility] 04-10-2024 History of Present illness Narrative Reason [...] nursing note reviewed. Exam conducted with a florist helper present. 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 documented in this encounter [facility] 03-12-2024 Telephone encounter Note Left message for patient to remind them to bring their most current medication list with them to their appointment. [facility] 10-11-2022 Evaluation note Encounter Date Diagnosis [...] the onset of your symptoms of COVID Front Up Other Chima complaint+Reason for visit Narrative* Chief Complaint sinus pressure, coug h Reason for Visit Contact with and (matt spected) exposure to covid-19 Sore throat Sinusitis [facility] Work Phone: Evaluation note* Diagnosis Onset Date Resolution Status Contact with and (suspected) exposure to covid-19 acute Sore throat acute Sinusitis noneactive [facility] Work Phone: Evaluation note* Diagnosis Postoperative visit S/P laparoscopic procedure Other postprocedural status documented in this encounter [facility]* Diagnosis PCOS (polycystic ovarian syndrome) Polycystic ovaries Encounter for fertility planning documented in this encounter [facility]* Diagnosis Pre-op examination Pelvic pain in female Unspecified symptom associated with female genital organs Fallopian tube disorder Unspecified noninflammatory disorder of ovary, fallopian tube, and broad ligament documented in this encounter [facility]* Diagnosis Encounter for fertility planning PCOS (polycystic ovarian syndrome) Polycystic ovaries Pelvic pain in female Unspecified symptom associated with female genital organs Abnormal uterine bleeding (AUB) documented in this encounter [facility]* Diagnosis Heart palpitations- Primary Palpitations [facility] Diagnosis Encounter for fertility planning Acute cystitis without hematuria PCOS (polycystic ovarian syndrome) Polycystic ovaries Fallopian tube disorder Unspecified noninflammatory disorder of ovary, fallopian tube, and broad ligament documented in this encounter [facility]* Diagnosis Well woman exam with routine gynecological exam Routine gynecological examination documented in this encounter [facility]* Diagnosis Skin mole documented in this encounter [facility] HealthcareEvaluation noteNo assessment [facility]: [facility]* Diagnosis Encounter for preprocedural laboratory examination- Primary Abnormal uterine bleeding Unspecified disorder of menstruation and other abnormal bleeding from female genital tract documented in this encounter [facility] Work Phone: Evaluation note* Diagnosis Amenorrhea Absence of menstruation Missed menses , unspecified gestational age ([facility]) Encounter for supervision of normal first in first trimester ([facility]) 9 weeks gestation of ([facility]) Vitamin D deficiency History of hypertension Personal history of other diseases of circulatory system [facility] Diagnosis 13 weeks gestation of ([facility]) Second trimester ([facility]) state, incidental Acute nonintractable headache, unspecified headache type [facility] Diagnosis 15 weeks gestation of ([facility]) Second trimester ([facility]) state, incidental Acute nonintractable headache, unspecified headache type BP check Screening for hypertension Gestational hypertension, antepartum ([facility]) induced hypertension, antepartum ([facility]) Transient hypertension of , antepartum [facility] Diagnosis Hypertension affecting in second trimester- Primary [facility] Diagnosis Screening, , for anatomic survey ([facility]) Encounter for anatomic survey Second trimester ([facility]) state, incidental 17 weeks gestation of ([facility]) Screen for STD (sexually transmitted disease) Screening examination for venereal disease Need for maternal serum alpha-protein (MSAFP) screening ([facility]) induced hypertension, antepartum ([facility]) Transient hypertension of , antepartum Vitamin D deficiency [facility] Diagnosis Chronic 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 Severe obesity due to excess calories affecting , antepartum ([facility]) 20 weeks gestation of [facility] 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 Chronic hypertension affecting Severe obesity due to excess calories affecting , antepartum ([facility]) Hypertension affecting in second trimester documented in this [facility] filedocumented in this encounter [facility] filedocumented in this encounter [facility] on filedocumented in this encounter [facility] on filedocumented in this encounter [facility] on filedocumented in this encounter [facility] on filedocumented in this encounter [facility] on filedocumented in this encounter [facility] Family History Relationship Condition Age [...] Reason Comments Infertility Reason Comments 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 SCHE D W/ PT LABS HM AT [facility] AT PCP Specialty Diagnoses / Procedures Referred By Radha t Referred To Contact Cardiology Diagnoses Heart palpitations Sabiha Aviles, MANAGER SIMULATION-MIDLEVEL PROVIDER [address] [place] [address] [facility] [address] [address] Referral ID Status Reason Start Date Expiration Date Visits Requested Visits Authorized [id number] Pending Review Specialty Services Required 01/25/2024 01/24/2025 [...] November 24, 2023 End: November 24, 2023 Firearms Expert Relationship Specialty Start Date End Date Judy Caal PCP - [facility] 02/20/24 Firearms Expert Relationship Specialty Start Date End Date Judy Caal PCP - [facility] 02/20/24 Firearms Expert Relationship Specialty Start Date End Date Kromer, Judy PCP - [facility] 02/20/24 Firearms Expert Relationship Specialty Start Date End Date Kromer, Judy PCP - [facility] 02/20/24 Firearms Expert Relationship Specialty Start Date End Date Kromer, Judy PCP - [facility] 02/20/24 Firearms Expert Relationship Specialty Start Date End Date Kromer, Judy PCP - [facility] 02/20/24 Firearms Expert Relationship Specialty Start Date End Date Kromer, Ujdy PCP - [facility] 02/20/24 Firearms Expert Relationship Specialty Start Date End Date [facility] [address] [place] [place] PCP - General Family Medicine 11/12/22 Firearms Expert Relationship Specialty Start Date End Date [facility] [address] [place] [place] PCP - General Family Medicine 11/12/22 Firearms Expert Relationship Specialty Start Date End Date [facility] [address] [place] [place] PCP - General Family Medicine 11/12/22 Firearms Expert Relationship Specialty Start Date End Date Kromer, Judy PCP - [facility] 02/20/24 Firearms Expert Relationship Specialty Start Date End Date Kromer, Judy PCP - [facility] 02/20/24 Firearms Expert Relationship Specialty Start Date End Date Kromer, Judy PCP - [facility] 02/20/24 Firearms Expert Relationship Specialty Start Date End Date Kromer, Judy PCP - [facility] 02/20/24 Team Status: Inactive Member Role Status Dates Caesar Broderick DO Attending Provider Active Start : December 18, 2024 End: December 18, 2024 Firearms Expert Relationship Specialty Start Date End Date June Trinidad LPN Licensed Practical Nurse Reproductive Endocrinology and Infertility 01/01/25 Firearms Expert Relationship Specialty Start Date End Date Judy Caal PCP - [facility] 02/20/24 Firearms Expert Relationship Specialty Start Date End Date Judy Caal PCP - [facility] 02/20/24 Firearms Expert Relationship Specialty Start Date End Date Judy Caal PCP - [facility] 02/20/24 Firearms Expert Relationship Specialty Start Date End Date Judy Caal PCP - [facility] 02/20/24 Firearms Expert Relationship Specialty Start Date End Date Services, [facility] [address] [place] PCP - General Family Medicine 11/03/24 Firearms Expert Relationship Specialty Start Date End [facility] [address] [place] PCP - General Family Medicine 11/03/24 Firearms Expert Relationship Specialty Start Date End Date Judy Caal PCP - [facility] 02/20/24 Firearms Expert Relationship Specialty Start Date End [facility] [address] [place] PCP - General Family Medicine 11/03/24 Firearms Expert Relationship Specialty Start Date End Date [facility] [address] [place] PCP - General Family Medicine 11/03/24 Goals (unrecognized section and content) Goals may be documented in a n alternate section INFORMATION SOURCE (unrecogn ized section and content) DATE CREATED AUTHOR 12/29/2024 [facility] DATE CREATED AUTHOR AUTHOR'S ORGANIZ ATION 01/07/2025 [facility] DATE CREATED AUTHOR AUTHOR'S ORGANIZ ATION 04/27/2025 [facility] DATE CREATED AUTHOR AUTHOR'S ORGANIZ ATION 05/01/2025 [facility] FOR RECORDS PERTAINING TO PATIENTS WHO [...] BE BASED ON THE PRIMARY CLINICAL RECORDS. [facility] [facility]. provides no warranty or guarantee of the accuracy or completeness of information in this document.
--- OUTSIDE RECORDS SUMMARY | 2025-05-26 10:04 | XMS_ITS | Encounter Summary ---
Author Organization [facility] Address [address] [place] [address] Care Team Providers Care Biomedical Engineering Internship Name Role Phone Judy Caal Unavailable Unavailable Encounter Details Date Type Department Care Team (Late st Contact Info) Description 05/15/2025 Telephone [facility] [address] [place] [address] Caesar Broderick DO [address] [place] [address] Social History Tobacco Use Types Packs/Day Years [...] Bethany calling from [facility] over at [facility], I was just calling on Chayo [...] quick call. My direct phone number is [phone]. Thanks so much, sulystephen thein. Called and spoke with Bethany and advised that on patient OB Flow sheet she did decline the [place] testing. Bethany voiced understanding and not further needs. documented in this encounter Plan of Treatment Upcoming Encounters Date Type Department Care Team (Late st Contact Info) Description 05/30/2025 3:20 PM EDT Routine [facility] [address] [place] [phone] Rosie Qiu, SHOEBLACK [address] [place] [phone] 06/24/2025 1:50 PM EST Routine [facility] [address] [place] [phone] Caesar Broderick, [address] [place] [address] 12/16/2025 3:00 PM EDT Office Visit [facility] [place] [facility] [address] [place] [phone] Caesar Broderick, DO [address] [place] [address] documented as of this encounter Visit Diagnoses Not on filedocumented in this encounter Care Teams Biomedical Engineering Internship Relationship Specialty Start Date End Date Judy Caal PCP - [facility] MAKING LINE WORKER 02/20/24 documented as of this encounter
--- OUTSIDE RECORDS SUMMARY | 2025-05-26 10:04 | XMS_ITS | Encounter Summary ---
Author Organization [facility] Address [address] [place] [address] Care Team Providers Care Lip And Gate Builder Name Role Phone Judy Caal Unavailable Unavailable [...] Info) Description 05/30/2025 3:20 PM EDT Routine [facility] [address] [place] [address] [place] [phone] Rosie Qiu, HEATING AND COOLING TECHNICIAN [address] [place] [address] 06/24/2025 1:50 PM EST Routine [facility] [address] [facility] [address] [place] [phone] Caesar Broderick DO [address] [place] [address] 12/16/2025 3:00 PM EDT Office Visit [facility] [address] [place] [address] Caesar Broderick, [address] [facility] [address] [place] [address] documented as of this encounter Visit Diagnoses Not on filedocumented in this encounter Care Teams Lip And Gate Builder Relationship Specialty Start Date End Date Judy Caal PCP - [facility] PERSONNEL QUALITY ASSURANCE AUDITOR 02/20/24 documented as of this encounter
--- OUTSIDE RECORDS SUMMARY | 2025-05-26 10:04 | XMS_ITS | Encounter Summary ---
Author Organization [facility] Address [address] [place] [address] Care Team Providers Care Innovation Analyst Name Role Phone Judy Caal Unavailable Unavailable Reason for Visit * Reason Comments Med Refill Encounter Details Date Type Department Care Team (Late st Contact Info) Description 05/15/2025 Refill [facility] [address] [place] [address] Caesar Broderick DO [address] [place] [address] Second trimester ([facility]); Gestational hypertension, antepartum ([facility]) Social History Tobacco Use Types Packs/Day Years [...] Description 05/30/2025 3:20 PM EDT Routine [facility] [address] [place] [address] Rosie Qiu, REAGENT TENDER HELPER [address] [address] [place] [address] 06/24/2025 1:50 PM EST Routine [facility] OB[address] [place] [address] Caesar Broderick, DO [address] [facility] [place] [address] 12/16/2025 3:00 PM EDT Office Visit [facility] [address] [place] [address] [place] [address] Caesar Broderick, DO [address] [facility] [place] [address] documented as of this encounter Visit Diagnoses Diagnosis Second trimester ([facility]) state, incidental Gestational hypertension, antepartum ([facility]) documented in this encounter Care Teams Innovation Analyst Relationship Specialty Start Date End Date Judy Caal PCP - [facility] 02/20/24 documented as of this encounter
--- OUTSIDE RECORDS SUMMARY | 2025-05-26 10:04 | XMS_ITS | Encounter Summary ---
Author Organization [facility] Address [address] [place] [address] Care Team Providers Care College Physics Instructor Name Role Phone Judy Caal Unavailable Unavailable Encounter Details Date Type Department Care Team (Late st Contact Info) Description 01/03/2025 Abstract [facility] [address] [place] [address] Tsering Willingham MA Social History Tobacco [...] 05/30/2025 3:20 PM EDT Routine [facility] [address] [address] Rosie Qiu, JEM [address] [place] [phone] 06/24/2025 1:50 PM EST Routine [facility] [address] [place] [address] Caesar Broderick DO [address] [facility] [place], [place] [phone] 12/16/2025 3:00 PM EDT Office Visit [facility] [place] [facility] [address] [phone] Caesar Broderick DO [address] [facility] [place] [address] documented as of this encounter Visit Diagnoses Not on filedocumented in this encounter Care Teams College Physics Instructor Relationship Specialty Start Date End Date Judy Caal PCP - [facility] YOUTH SERVICES LIBRARIAN 02/20/24 documented as of this encounter
--- OUTSIDE RECORDS SUMMARY | 2025-05-26 10:04 | XMS_ITS | Encounter Summary ---
Author Organization [facility] tem Address [id number] [address] [place] [address] Care Team Providers Care Preschool Lead Teacher Name Role Phone Services, [facility] Primary Care Provider Encounter Details Date Type Department Care Team (Late Contact Info) Description 05/24/2025 Orders Only Maternal- Medicine at [facility] [address] [place] [phone] Bethany Lundy LPN Acute palmoplantar pustular psoriasis [...] Info) Description 06/18/2025 8:00 AM EDT Appointment [facility] [place] [facility] - Ultrasound [address] [place] [phone] 06/18/2025 2:00 PM EDT Telemedicine Maternal- Medicine at [facility] [address] [place] [address] Sheila Cruz MD [address] [facility] 1st [place] [address] documented as of this encounter Results * Unlisted Lab Test (05/17/2025) Free Cell Dna low risk MANUALLY TRANSCRIBED RESULTS Blood (Arm) 05/17/2025 us Sheila Cruz MD LAB BLOOD ORDERABLES Final Resul t MANUALLY TRANSCRIBED RESULTS documented in this encounter Visit Diagnoses 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
--- OUTSIDE RECORDS SUMMARY | 2025-05-26 10:04 | XMS_ITS | Encounter Summary ---
Author Organization [facility] Address [address] [place] [address] Care Team Providers Care Dry Ice Machine Operator Name Role Phone Judy Caal Unavailable Unavailable Encounter Details Date Type Department Care Team (Late st Contact Info) Description 05/20/2025 Abstract [facility] [address] [place] [address] Tsering Willingham MA Social History Tobacco [...] 05/30/2025 3:20 PM EDT Routine [facility] [address] [place] [address] Rosie Qiu, JEM [address] [place] [address] 06/24/2025 1:50 PM EST Routine [facility]NA HEAD [address] [facility] [place] [address] Caesar Broderick DO [address] [place] [address] 12/16/2025 3:00 PM EDT Office Visit [facility] [address] [facility] [place] [address] Caesar Broderick DO [address] [address] documented as of this encounter Visit Diagnoses Not on filedocumented in this encounter Care Teams Dry Ice Machine Operator Relationship Specialty Start Date End Date Judy Caal PCP - [facility] COPY OPERATOR 02/20/24 documented as of this encounter
--- OUTSIDE RECORDS SUMMARY | 2025-05-26 10:04 | XMS_ITS | Encounter Summary ---
Author Organization [facility] Address [address] [place] [address] Care Team Providers Care Tile Setter Apprentice Name Role Phone Judy Caal Unavailable Unavailable Encounter Details Date Type Department Care Team (Late st Contact Info) Description 12/25/2024 Orders Only [facility] [address] [place] [address] Luz Marina Velez LPN [address] [facility] [address] [place], [facility] Social History Tobacco Use Types [...] 05/30/2025 3:20 PM EDT Routine [facility] [address] [place] [address] Rosie Qiu, JEM [address] [place] [address] 06/24/2025 1:50 PM EST Routine [facility] [address] [facility] [place] [address] Caesar Broderick DO [address] [facility] [address] [place], [place] [id number] 12/16/2025 3:00 PM EDT Office Visit [facility] [place] O[facility] [address] [place] [phone] Caesar Broderick DO [address] [facility] [address] [place] [address] documented as of this encounter Procedures Procedure Name Priority Date/Time Associated Diagnosis Comments PAP SMEAR Routine 12/10/2024 12:00 AM EDT documented in this encounter Results * Pap Smear (12/10/2024 12:00 AM EDT) Swab Cervical swab / Unknown [facility] Nurse [facility] LAB CYTOLOGY ORDERABLES Final Result EXTERNAL LAB documented in this encounter Visit Diagnoses Not on filedocumented in this encounter Care Teams Tile Setter Apprentice Relationship Specialty Start Date End Date Judy Caal PCP - [facility] ALTERATIONS SEWER 02/20/24 documented as of this encounter
--- OUTSIDE RECORDS SUMMARY | 2025-05-26 10:04 | XMS_ITS | Encounter Summary ---
Author Organization [facility] Address [address] [facility] [place] [address] Care Team Providers Care Input Output Clerk Name Role Phone Judy Caal Unavailable Unavailable Encounter Details Date Type Department Care Team (Late st Contact Info) Description 05/17/2025 External Result Encounter [facility] HEAD [address] [place] [address] Israel Broderick DO [address] [place], [facility] Social History Tobacco Use Types Packs/Day [...] PM EDT Routine [facility] HEAD [address] [place] [address] Rosie Qiu, JEM [address] [place] [address] 06/24/2025 1:50 PM EST Routine [facility] [address] [place] [address] Israel Broderick, DO [address] [facility] [place], [place] [id number] 12/16/2025 3:00 PM EDT Office Visit [facility] LAWSONGYN [address] [facility] [place] [address] Israel Broderick, DO [address] [facility] [place] [address] documented as of this encounter Procedures Procedure Name Priority Date/Time Associated Diagnosis Comments US OB 14+ WEEKS ANATOMY SCAN 05/17/2025 4:39 PM EDT documented in this encounter Results * US OB 14+ weeks anatomy scan (05/17/2025 4:39 PM EDT) Anatomical Region Laterality Modality Body Ultrasound 05/17/2025 4:39 PM EDT Narrative 05/17/2025 4:39 PM EDT THIS EXAM WAS PERFORMED AT [facility] NAME: PAULA HUGHES : 1990 SEX: F Accession Number: [id number] ORDERING PHYSICIAN: ISRAEL BRODERICK REFERRING PHYSICIAN: ISREAL BRODERICK Coding ----- --------- Procedures [id number]: Ultrasound, uterus, real time with image documentation, and maternal evaluation plus detailed anatomic examination, transabdominal approach;single or first gestation [id number]: Ultrasound, uterus, real time with image documentation, transvaginal Indication ----- --------- Screening for Anatomic Survey , Screening for cervical length , Anxiety , Depression , Gestational hypertension without significant proteinuria , Obesity in , History of gestational hypertension. History ----- --------- OB History 2. Para 1 [id number] Maternal Assessment ----- --------- Physical Exam Height [...] EFW (oz) 13 oz EFW by: Hadlock ([id number]) Extended Tibia 23.0 mm 18w 1d 2% [...] Heart/Thorax: RVOT view. LVOT view. 3-vessel view. 2-axjgir-ystnibl view. Situs. Bicaval view. Cardiac position. Cardiac [...] patient as necessary. Procedure Note Radiology, Radiologist, MD - 05/17/2025 THIS EXAM WAS PERFORMED AT [facility] NAME: PAULA HUGHES : 1990 SEX: F Accession Number: [id number] ORDERING PHYSICIAN: ISRAEL BRODERICK REFERRING PHYSICIAN: ISRAEL BRODERICK Coding ----- --------- Procedures [id number]: Ultrasound, uterus, real time with imagedocumentation, and maternal evaluation plus detailed anatomic examination, transabdominalapproach;single or first gestation [id number]: Ultrasound, uterus, real time with imagedocumentation, transvaginal Indication ----- --------- Screening for Anatomic Survey , Screening for cervical length , Anxiety ,Depression , Gestational hypertension without significant proteinuria , Obesity in , History of gestationalhypertension. History ----- --------- OB History 2. Para 1 [id number] Maternal Assessment ----- --------- Physical Exam Height [...] EFW (oz) 13 oz EFW by: Hadlock ([id number]) Extended Tibia 23.0 mm 18w 1d 2% [...] Heart/Thorax: RVOT view. LVOT view. 3-vessel view. 9-ntezhj-lxoxjlc view.Situs. Bicaval view. Cardiac position. Cardiac axis. [...] byprimary OB provider unless otherwise specified by [facility]. Results forwarded to ordering provider so they can follow up with thepatient as necessary. us Israel FRASER OB US PROCEDURES Final Resul t documented in this encounter Visit Diagnoses Not on filedocumented in this encounter Care Teams Input Output Clerk Relationship Specialty Start Date End Date Judy Caal PCP - [facility] RESOURCE CONSERVATION MANAGER 02/20/24 documented as of this encounter
--- OUTSIDE RECORDS SUMMARY | 2025-05-26 10:04 | XMS_ITS | Encounter Summary ---
Author Organization [facility] tem Address [id number] [address] [place] [address] Care Team Providers Care Statistical Developer Name Role Phone Services, [facility] Primary Care Provider Encounter Details Date Type Department Care Team (Late Contact Info) Description 05/24/2025 Orders Only Maternal- Medicine at [facility] [address] [place] [phone] Bethany Lundy LPN Acute palmoplantar pustular psoriasis; Chronic hypertension affecting ; Severe obesity due to excess calories affecting , antepartum ([facility]-HCC); Hypertension affecting in second trimester Social History [...] Info) Description 06/18/2025 8:00 AM EDT Appointment [facility] - Ultrasound [address] [place] [phone] 06/18/2025 2:00 PM EDT Telemedicine Maternal- Medicine at [facility] [address] [place] [phone] Sheila Cruz MD [address] [facility] 1st [place] [address] documented as of this encounter Procedures Procedure Name Priority Date/Time Associated Diagnosis Comments UNLISTED LAB TEST Routine 05/17/2025 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 Severe obesity due to excess calories affecting , antepartum (CMS-HCC) Hypertension affecting in second trimester documented in this encounter Results * Unlisted Lab Test (05/17/2025) Free Cell Dna low risk MANUALLY TRANSCRIBED RESULTS Blood (Arm) 05/17/2025 us Sheila Cruz MD LAB BLOOD ORDERABLES Final Resul t MANUALLY TRANSCRIBED RESULTS documented in this encounter Visit Diagnoses Diagnosis Acute palmoplantar pustular psoriasis Other psoriasis Chronic hypertension affecting Severe obesity due to excess calories affecting , antepartum (CMS-HCC) Hypertension affecting in second trimester documented in this encounter Care Teams Statistical Developer Relationship Specialty Start Date End Date Services, [facility] [address] [place] [place] PCP - General Family Medicine 11/03/24 documented as of this encounter
--- OUTSIDE RECORDS SUMMARY | 2025-05-26 10:04 | XMS_ITS | Clinical Summary ---
Author Organization [facility] Healthcare Address [address] [place] [address] Care Team Providers Care Neon Technician Name Role Phone Judy Caal Unavailable Unavailable Allergies No known active allergies Medications sertraline (Zoloft) 25 MG tablet Take 50 mg by mouth 1 (one) time each day at the same time 11/07/19 25 Active Procardia XL 30 MG 24 hr tablet Take 30 mg by mouth Daily 05/17/20 25 Active magnesium oxide (Mag-Ox) 400 MG tabletIndications :Second trimester ([facility]),Acute nonintractable headache, unspecified headache type Take 1 tablet (400 mg) by mouth Daily 30 tablet 6 03/28/20 25 025 labetalol (Normodyne) 200 MG tabletIndications :Second trimester ([facility]),Gestati onal hypertension, antepartum ([facility]) Take 1 tablet (200 mg) by mouth in the morning and 1 tablet (200 mg) before bedtime. 60 tablet 04/11/20 25 025 Discontinued metroNIDAZOLE (Flagyl) 500 MG tabletIndications :BV (bacterial vaginosis) Take 1 tablet (500 mg) by mouth in the morning and 1 tablet (500 mg) before bedtime. Do all this for 7 days. Do not drink alcohol while taking this medication . 14 tablet 04/26/20 25 025 labetalol (Normodyne) 200 MG tabletIndications :Second trimester ([facility]),Gestati onal hypertension, antepartum ([facility]) TAKE 1 TABLET (200 MG) BY MOUTH IN THE MORNING AND AT BEDTIME 60 tablet 2 05/16/20 25 025 Discontinued(In effective) Active Problems Problem Noted Date Diagnosed Date Vitamin D deficiency 05/23/2025 H/O pre-eclampsia in prior p regnancy, currently ([facility]) 05/23/2025 induced hypertension, antepartum ([facility]) 04/25/2025 Fallopian tube disorder 07/30/2024 PCOS (polycystic ovarian syndrome) 07/30/2024 Estimated Date of Delivery Comme nts Yes 10/02/2025 Based on last me nstrual period of 12/26/2024 Encounters Date Type Department Care Team Description 05/23/2025 2:30 PM [place] [address] Rosie Qiu, JEM Second trimester ([facility]); 21 weeks gestation of ([facility]); induced hypertension, antepartum ([facility]); Vitamin D deficiency; H/O pre-eclampsia in prior , currently ([facility]) 05/23/2025 Clinisync Result Encounter NOMS External Department Unsolicited Israel Broderick DO 05/23/2025 [place]amboo [place] [address] Rosie Qiu, JEM 05/22/2025 Travel 05/20/2025 [place] [address] Tsering Willingham MA 05/17/2025 External [place] [address] Israel Broderick, 05/15/2025 [place] [address] Israel Broderick, Second trimester ([facility]); Gestational hypertension, antepartum ([facility]) 05/15/2025 [place] [phone] Israel Broderick, 04/26/2025 [place] [address] Maulik Eden, MA 04/26/2025 [place] [address] Maulik Eden, MA 04/25/2025 11:10 AM ED[place] [address] Israel Broderick, Screening, , for anatomic survey ([facility]); Second trimester ([facility]); 17 weeks gestation of ([facility]); Screen for STD (sexually transmitted disease); Need for maternal serum alpha-protein (MSAFP) screening ([facility]); induced hypertension, antepartum ([facility]); Vitamin D deficiency 04/25/2025 [place] [address] Israel Broderick, 04/23/2025 Travel 04/21/2025 Clinisync Result Encounter NOMS External Department Unsolicited Israel Broderick, 04/17/2025 Clinisync Result Encounter NOMS External Department Unsolicited Israel Broderick, 04/11/2025 10:30 AM [place] [phone] Israel Broderick, 15 weeks gestation of ([facility]); Second trimester ([facility]); Acute nonintractable headache, unspecified headache type; BP check; Gestational hypertension, antepartum ([facility]); induced hypertension, antepartum ([facility]) 04/11/2025 Bamboo [place] [phone] Israel Broderick, 03/28/2025 11:40 AM [place] [address] Israel Broderick, DO 13 weeks gestation of ([facility]); Second trimester ([facility]); Acute nonintractable headache, unspecified headache type 03/28/2025 [place]amboo [place] [address] Israel Broderick, 03/21/2025 [place] [address] Bethany Simon PA 03/20/2025 Clinisync Result Encounter NOMS External Department Unsolicited Israel Broderick, 03/01/2025 9:30 AM [place] [address] GA: 9w2d 03/01/2025 9:00 AM EDT [place]illary [place] [phone] Missed menses from Last 3 Months Family History Medical [...] (283 lb) 05/23/2025 3:07 PM EDT Height 172.7 cm (5' 8 ) 06/11/2024 2:39 PM EDT Body Mass Index 43.03 06/11/2024 2:39 PM EDT Plan of Treatment Upcoming Encounters Date Type Department Care Team (Late st Contact Info) Description 05/30/2025 3:20 PM EDT Routine [facility] [address] [phone] Rosie Qiu, JEM [address] [place] [phone] 06/24/2025 1:50 PM EST Routine [facility] [place] OBRAZ[facility] [address] [place] [address] Israel Broderick, DO [address] [place], [place] [phone] 12/16/2025 3:00 PM EDT Office Visit LIANA HEAD [address] [place] [address] Israel Broderick, DO [address] [place], [place] [phone] Health Maintenance Due Date Last Done Comments Influenza Vaccine (#1) 2025 HPV/Cotest 11/24/2027 11/23/2022 Cervical Cancer Screening 12/11/2027 Pap Smear 12/11/2027 12/10/2024, 11/19/2022 Procedures Procedure Name Priority Date/Time Associated Diagnosis Comments AFP, SERUM, OPEN SPINA BIFIDA Routine 05/23/2025 2:30 PM EDT US OB 14+ WEEKS ANATOMY SCAN 05/17/2025 4:39 PM EDT RECURRENT VAGINITIS (HTRX) Routine 04/25/2025 3:21 PM EDT POCT URINALYSIS DIPSTICK Routine 04/25/2025 11:38 AM EDT Second trimester ([facility]) TBH TOTAL PROTEIN 24 HOUR URINE Routine [...] 11:06 AM EDT 15 weeks gestation of ([facility]) Second trimester ([facility]) POCT URINALYSIS DIPSTICK Routine 03/28/2025 11:44 AM EDT 13 weeks gestation of ([facility]) Second trimester ([facility]) HBSAG SCREEN Routine 03/20/2025 12:48 PM EDT [...] AUTO DIFF Routine 03/20/2025 12:48 PM EDT [facility] DRUG SCREEN RAPID (URINE) Routine 03/20/2025 12:33 PM EDT POCT URINALYSIS DIPSTICK Routine 03/01/2025 10:11 AM EDT Missed menses POCT , URINE Routine 03/01/2025 10:10 AM EDT Missed menses US OB TRANSVAGINAL Routine 03/01/2025 9: 24 AM EDT Missed menses PAP SMEAR Routine 12/10/2024 12:00 AM EDT from Last 3 Months or Most Recently Relevant to Health Maintenance Results * AFP, SERUM, OPEN SPINA BIFIDA (05/23/2025 2:30 PM EDT) Pathologist [facility] RESULTS Report . [facility] TEST RESULTS: *Screen Negative* . [facility] GEST. AGE ON COLLECTION DATE 21.1 . weeks [facility] GESTAT. AGE BASED ON LMP . [facility] Comment: Recalculations are not recommended when gestational dating by LMP and ultrasound are within 10 days. [age]ROS [age] [facility] RACE . [facility] WEIGHT 282 . lbs [facility] INSULIN DEP DIABETES No . TB MULTIPLE GESTATION No . [facility] AFP VALUE 38.2 . ng/mL [facility] AFP MOM 0.85 . [facility] [place] [place] [id number] . [facility] INTERPRETATION Comment . [facility] Comment: Interpretation: Screen Negative This result is screen negative for OSB. The AFP MoM calculated is based on the gestational age provided. MS-AFP can identify up to 80% of open neural tube defects. Closed neural tube defects and some open defects may not be detected by this test. This test does not screen for Down Syndrome or Trisomy 18. If screening for Down Syndrome or Trisomy 18 is desired, contact [employer] to discuss available options. The [place] [employer] [place] [employer] recommends amniocentesis be offered to women age 35 and older. COMMENT: Comment . [facility] Comment: Gema Ortez, Ph.D., [facility] Director References: Available Upon Request. Multiples Of Median Cutoffs For AFP Elevations Kumar 2.5 Black 2.8 IDD 2.0 Twins 4.5 Abbreviation Definitions IDD - Insulin Dep Diabetes OSBR - Open Spina Bifida Risk For further inquiries contact [employer] [facility] [facility] at [phone]. This test was developed and its performance characteristics determined by [facility]. It has not been cleared or approved by the Food and Drug Administration. Performed at: [facility] [address] [id number] Bundle Shaker: Jesus Saleh [facility], Phone: [phone] 05/23/2025 2:30 PM EDT 05/23/2025 2:40 PM EDT Narrative EVA - 05/25/2025 1:07 AM EDT N N LMP [id number] 2 9 N 1 282 N N N N N White/ us Israel Broderick DO LAB BLOOD ORDERABLES Final Resul t [facility] * US OB 14+ weeks anatomy scan (05/17/2025 4:39 PM EDT) Anatomical Region Laterality Modality Body Ultrasound 05/17/2025 4:39 PM EDT Narrative 05/17/2025 4:39 PM EDT THIS EXAM WAS PERFORMED AT [facility] NAME: PAULA HUGHES : 1990 SEX: F Accession Number: [id number] ORDERING PHYSICIAN: ISRAEL BRODERICK REFERRING PHYSICIAN: ISRAEL BRODERICK Coding ----- --------- Procedures [id number]: Ultrasound, uterus, real time with image documentation, and maternal evaluation plus detailed anatomic examination, transabdominal approach;single or first gestation [id number]: Ultrasound, uterus, real time with image documentation, transvaginal Indication ----- --------- Screening for Anatomic Survey , Screening for cervical length , Anxiety , Depression , Gestational hypertension without significant proteinuria , Obesity in , History of gestational hypertension. History ----- --------- OB History 2. Para 1 [id number] Maternal Assessment ----- --------- Physical Exam Height [...] EFW (oz) 13 oz EFW by: Hadlock ([id number]) Extended Tibia 23.0 mm 18w 1d 2% [...] Heart/Thorax: RVOT view. LVOT view. 3-vessel view. 5-untlnw-mghghwg view. Situs. Bicaval view. Cardiac position. Cardiac [...] cyst noted. Recommendations ----- --------- Please see [facility] documentation from today. The patient is scheduled in four to six week(s) to complete anatomic survey. Subsequent follow up or other follow up as clinically determined by primary OB provider unless otherwise specified by [facility]. Results forwarded to ordering provider so they can follow up with the patient as necessary. Procedure Note Radiology RadiologistMD - 05/17/2025 THIS EXAM WAS PERFORMED AT [facility] NAME: PAULA HUGHES : 1990 SEX: F Accession Number: [id number] ORDERING PHYSICIAN: ISRAEL BRODERICK REFERRING PHYSICIAN: ISRAEL BRODERICK Coding ----- --------- Procedures [id number]: Ultrasound, uterus, real time with imagedocumentation, and maternal evaluation plus detailed anatomic examination, transabdominalapproach;single or first gestation 42514: Ultrasound, uterus, real time with imagedocumentation, transvaginal Indication ----- --------- Screening for Anatomic Survey , Screening for cervical length , Anxiety ,Depression , Gestational hypertension without significant proteinuria , Obesity in , History of gestationalhypertension. History ----- --------- OB History 2. Para 1 [id number] Maternal Assessment ----- --------- Physical Exam Height [...] EFW (oz) 13 oz EFW by: Hadlock ([id number]) Extended Tibia 23.0 mm 18w 1d 2% Gavino Nasal bone 5.4 mm 6% Hannah Head / Face / Neck Cephalic index 0.80 66% Nicolaides Nasal bone: present Extremities / Bony Struc FL / BPD 0.66 12% Hadlock FL / HC 0.18 21% Hadlock FL / AC 0.21 37% Hadlock Other Structures FHR 155 bpm Anatomy ----- --------- The following structures appear normal: Head/Neck: Cranium. Parenchyma. Face: Nasal bone. Heart/Thorax: RVOT view. LVOT view. 3-vessel view. 7-ipskdr-qgeqgyk view.Situs. Bicaval view. Cardiac position. Cardiac axis. [...] cyst noted. Recommendations ----- --------- Please see [facility] documentation from today. The patient is scheduled in four to six week(s) to complete anatomicsurvey. Subsequent follow up or other follow up as clinically determined byprimary OB provider unless otherwise specified by M. Results forwarded to ordering provider so they can follow up with thepatient as necessary. us Israel Broderick DO IMG OB US PROCEDURES Final Resul t * (ABNORMAL) RECURRENT VAGINITIS (HTRX) (04/25/2025 3:21 PM EDT) [facility] ATOPOBIUM VAGINAE 0 19.961 - 24.689 ppm 04/26/2025 6:40 AM EDT [facility] ATOPOBIUM VAGINAE Not Detected 19.961 - 24.689 ppm 04/26/2025 6:40 AM EDT [facility] BVAB 2,3 (BACTERIAL VAGINOSIS ASSOCIATED BACTERIA 2, 3); MOBILUNCUS SPP 24.556(A) 19.961 - 24.689 ppm 04/26/2025 6:40 AM EDT [facility] BVAB 2,3 (BACTERIAL VAGINOSIS ASSOCIATED BACTERIA 2, 3); MOBILUNCUS SPP Detected(A) 19.961 - 24.689 ppm 04/26/2025 6:40 AM EDT [facility] DON ALBICANS, PARAPSILOSIS, TROPICALIS 0 23.000 - 30.347 ppm 04/26/2025 6:40 AM EDT [facility] DON ALBICANS, PARAPSILOSIS, TROPICALIS Not Detected 23.000 - 30.347 ppm 04/26/2025 6:40 AM EDT [facility] DON GLABRATA 0 23.000 - 31.618 ppm 04/26/2025 6:40 AM EDT [facility] DON GLABRATA Not Detected 23.000 - 31.618 ppm 04/26/2025 6:40 AM EDT [facility] DON KRUSEI 0 23.000 - 30.873 ppm 04/26/2025 6:40 AM EDT [facility] DON KRUSEI Not Detected 23.000 - 30.873 ppm 04/26/2025 6:40 AM EDT [facility] CHLAMYDIA TRACHOMATIS 0 23.000 - 31.586 ppm 04/26/2025 6:40 AM EDT [facility] CHLAMYDIA TRACHOMATIS Not Detected 23.000 - 31.586 ppm 04/26/2025 6:40 AM EDT [facility] GARDNERELLA VAGINALIS 0 19.961 - 24.689 ppm 04/26/2025 6:40 AM EDT [facility] GARDNERELLA VAGINALIS Not Detected 19.961 - 24.689 ppm 04/26/2025 6:40 AM EDT [facility] MEGASPHAERA (TYPES 1, 2) 0 19.961 - 24.689 ppm 04/26/2025 6:40 AM EDT [facility] MEGASPHAERA (TYPES 1, 2) Not Detected 19.961 - 24.689 ppm 04/26/2025 6:40 AM EDT [facility] NEISSERIA GONORRHOEAE 0 23.000 - 32.587 ppm 04/26/2025 6:40 AM EDT [facility] NEISSERIA GONORRHOEAE Not Detected 23.000 - 32.587 ppm 04/26/2025 6:40 AM EDT [facility] TRICHOMONAS VAGINALIS 0 23.000 - 31.995 ppm 04/26/2025 6:40 AM EDT [facility] TRICHOMONAS VAGINALIS Not Detected 23.000 - 31.995 ppm 04/26/2025 6:40 AM EDT [facility] MYCOPLASMA GENITALIUM 0 19.961 - 24.689 ppm 04/26/2025 6:40 AM EDT [facility] MYCOPLASMA GENITALIUM Not Detected 19.961 - 24.689 ppm 04/26/2025 6:40 AM EDT [facility] Tissue 04/25/2025 3:21 PM EDT 04/26/2025 1:52 AM EDT us Israel Broderick DO LAB BLOOD ORDERABLES Final Resul t [facility] [address] [address] * POCT urinalysis dipstick manually resulted (04/25/2025 [...] Positive Urine 04/25/2025 11:3 8 AM EDT Israel Davie DO POINT OF CARE TEST ENTER/EDIT OR DERABLES Final Result * TB TOTAL PROTEIN 24 HOUR URINE (04/21/2025 7:00 AM EDT) TOTAL PROTEIN URINE RANDOM <6.0 <=11.9 mg/dL TBH TOTAL VOLUME 24 HOUR URINE 2,500 mL/24hr TB 04/21/2025 7:00 AM EDT 04/21/2025 9:25 AM EDT Narrative CLIN[facility] - 04/21/2025 1:50 PM EDT Israel Davie DO CLINISYNC Final Result CLINISYNC [facility] * TB CREATININE (04/17/2025 1:21 PM EDT) CREATININE 0.56 0.55 - 1.02 mg/dL TBH TBH EGFR-AF IRISH >60 >=60 mL/min/1.7 3m 2 TBH TBH EGFR-NON AF IRISH >60 >=60 mL/min/1.7 3m 2 TBH 04/17/2025 1:21 PM EDT 04/17/2025 1:22 PM EDT Narrative CL[facility]YNC - 04/17/2025 1:56 PM EDT Israel Heatho DO CLINISYNC Final Result Performing Organization Address [facility] de Phone Number EVA [facility] * SRMCOH PROTHROMBIN TIME INR W/O COUM (04/17/2025 1:21 PM EDT) PROTHROMBIN TIME 10.1 9.0 - 11.6 sec TB TB INR 0.95 TBH Comment: DESIRED INR: 2.0-3.0 CONDITIONS NOT LISTED BELOW 2.5-3.5 FOR PROSTHETIC HEART VALVE REPLACEMENT 2.5-3.5 RECURRENT THROMBOSIS 04/17/2025 1:21 PM EDT 04/17/2025 1:22 PM EDT Narrative CLINISYNC - 04/17/2025 1:54 PM EDT Israel Heatho DO CLINISYNC Final Result Performing Organization Address [facility] de Phone Number [facility] * [facility] AST (04/17/2025 1:21 PM EDT) ASPARTATE AMINO TRANSFERASE 20 15 - 37 U/L TB 04/17/2025 1:21 PM EDT 04/17/2025 1:22 PM EDT Narrative CLINISYNC - 04/17/2025 1:56 PM EDT Israel Heatho DO SHLOMOISYNC Final Result Performing Organization Address [facility] de Phone Number EVA [facility] * [facility] APTT (04/17/2025 1:21 PM EDT) PARTIAL THROMBOPLASTIN TIME 26.5 22.3 - 36.2 sec TB 04/17/2025 1:21 PM EDT 04/17/2025 1:22 PM EDT Narrative CLINISYNC - 04/17/2025 1:54 PM EDT us Israel Davie DO CLINISYNC Final Result CLINISYNC TB * ALL URIC ACID (04/17/2025 1:21 PM EDT) Pathologist [facility] URIC ACID 5.1 2.6 - 6.0 mg/dL TBH 04/17/2025 1:21 PM EDT 04/17/2025 1:22 PM EDT Narrative CLINISYNC - 04/17/2025 1:56 PM EDT Israel Davie DO CLINISYNC Final Result CLINISYGA TB * ALL LDH (04/17/2025 1:21 PM EDT) Pathologist [facility] LACTATE DEHYDROGENASE 117 81 - 234 U/L TBH 04/17/2025 1:21 PM EDT 04/17/2025 1:22 PM EDT Narrative CLINISYNC - 04/17/2025 1:56 PM EDT [facility] Davie DO CLINISYNC Final Result Performing Organization Address City/[facility]/ZIP Co de Phone Number [facility] * (ABNORMAL) ALL CBC WITH AUTO DIFF (04/17/2025 1:21 PM EDT) Only the most recent of2 resultswithin the time period is included. Pathologist [facility] TBH WBC 13.0(H) 4.0 - 11.0 10 3/uL [...] Narrative CLINISYNC - 04/17/2025 1:31 PM EDT Israel Davie DO CLINISYNC Final Result CLINISYNC TB * ALL BUN (04/17/2025 1:21 PM EDT) Pathologist [facility] BLOOD UREA NITROGEN 7.0 7.0 - 18.0 mg/dL TBH 04/17/2025 1:21 PM EDT 04/17/2025 1:22 PM EDT Narrative CLINISYNC - 04/17/2025 1:56 PM EDT Israel Davie DO CLINISYNC Final Result CLINISYNC TB * HBSAG SCREEN (03/20/2025 12:48 PM EDT) [facility] HBSAG SCREEN Negative Negative [facility] Comment: Performed at: [address] [id number] Bundle Shaker: Yobany Blount PhD, Phone: [phone] 03/20/2025 12:4 8 PM EDT 03/20/2025 12:51 PM EDT Narrative CLINISYNC - 03/21/2025 11:11 AM EDT us Israel Davie DO LAB BLOOD ORDERABLES Final Resul t Performing Organization Address [facility]/ZIP Co de Phone Number [facility] * RAPID PLASMA REAGIN, QUANT (03/20/2025 12:48 PM EDT) [facility] RAPID PLASMA REAGIN, QUANT Non Reactive NonRea<1: 1 titer [facility] Comment: Please Note: This test does not meet current guidelines for screening and diagnosis of syphilis. This test is intended for following treatment response in patients being treated for syphilis infection. To screen for syphilis infection, a reflex cascade that includes both RPR and a treponema-specific assay should be utilized, such as Treponema pallidum (Syphilis) Screening Willacy (725421) or Rapid Plasma Reagin (RPR) Test With Reflex to Quantitative RPR and Confirmatory Treponema pallidum Antibodies ([id number]). Performed at: [address] [id number] Bundle Shaker: Yobany Blount PhD, Phone: [phone] 03/20/2025 12:4 8 PM EDT 03/20/2025 12:51 PM EDT Narrative CLINISYNC - 03/21/2025 11:11 AM EDT us Israel Davie DO LAB BLOOD ORDERABLES Final Resul t Performing Organization Address City/[facility]/ZIP Co de Phone Number [facility] * HIV AB/P24 AG WITH REFLEX (03/20/2025 12:48 PM EDT) [facility] HIV AB/P24 AG SCREEN Non Reactive Non Reactive [facility] Comment: HIV-1/HIV-2 antibodies and HIV-1 p24 antigen were NOT detected. There is no laboratory evidence of HIV infection. HIV Negative Performed at: [address] [id number] Bundle Shaker: Yobany Blount PhD, Phone: [phone] 03/20/2025 12:4 8 PM EDT 03/20/2025 12:51 PM EDT Narrative CLINISYGA - 03/21/2025 5:07 AM EDT Abacast DO LAB BLOOD ORDERABLES Final Resul t Performing Organization Address City/[facility]/ZIP Co de Phone Number [facility] * HCV ANTIBODY RFX TO QUANT PCR (03/20/2025 12:48 PM EDT) [facility] HCV AB Non Reactive Non Reactive [facility] INTERPRETATION: Comment . [facility] Comment: Not infected with HCV unless early or acute infection is suspected (which may be delayed in an immunocompromised individual), or other evidence exists to indicate HCV infection. 03/20/2025 12:4 8 PM EDT 03/20/2025 12:51 PM EDT Narrative [facility] - 03/21/2025 5:07 AM EDT Helixbindo DO LAB BLOOD ORDERABLES Final Resul t [facility] * MLR HEMOGLOBIN A1C (03/20/2025 12:48 PM EDT) [facility] GLYCOHEMOGLOBIN A1C 5.1 4.5 - 6.2 % [facility] Comment: ADA RECOMMENDED LIMIT 4.0 - 6.0 ADA THERAPEUTIC TARGET < 7.0 ACTION SUGGESTED > 7.0 ESTIMATED AVERAGE GLUCOSE 100 mg/dL [facility] 03/20/2025 12:4 8 PM EDT 03/20/2025 12:51 PM EDT Narrative CLINISYGA - 03/20/2025 2:20 PM EDT us Israel Davie DO CLINISYNC Final Result Performing Organization Address [facility] Co de Phone Number [facility] * ALL TYPE AND SCREEN (03/20/2025 12:48 PM EDT) Pathologist [facility] BLOOD TYPE B Positive TBH ANTIBODY SCREEN NEGATIVE TBH 03/20/2025 12:4 8 PM EDT 03/20/2025 12:51 PM EDT Narrative CLINISYNC - 03/20/2025 2:38 PM EDT [facility] , Israel Davie DO CLINISYNC Final Result Performing Organization Address [facility] Co de Phone Number [facility] * ALL RUBELLA IGG AB (03/20/2025 12:48 PM EDT) Pathologist [facility] RUBELLA ANTIBODIES, IGG 1.99 Immune >0.99 index [facility]H Comment: Non-immune <0.90 Equivocal 0.90 - 0.99 Immune >0.99 Performed at: [facility] [id number] Bundle Shaker: Yobany Blount PhD, Phone: [phone] 03/20/2025 12:4 8 PM EDT 03/20/2025 12:51 PM EDT Narrative CLINISYNC - 03/21/2025 5:07 AM EDT Israel Davie DO CLINISYNC Final Result Performing Organization Address [facility] Co de Phone Number [facility] * [facility] DRUG SCREEN RAPID (URINE) (03/20/2025 12:33 PM EDT) CANNABINOID SCREEN URINE NEGATIVE NEGATIVE [facility] PHENCYCLIDINE [...] Narrative CLINISYNC - 03/20/2025 2:02 PM EDT us Israel Davie DO CLINISYNC Final Result [facility] * (ABNORMAL) POCT , urine [...] SIGNED BY: Mariusz Altamirano MD us Israel Broderick DO IMG OB US PROCEDURES Final Resul t * Pap Smear (12/10/2024 12:00 AM EDT) Swab Cervical swab / Unknown us Davie Nurse [facility] LAB CYTOLOGY ORDERABLES Final Result EXTERNAL LAB from Last 3 Months or Most Recently Relevant to Health Maintenance Insurance [employer] MEDICAID [place] Care Teams Neon Technician Relationship Specialty Start Date End Date Judy Caal PCP - [facility] 02/20/24
--- OUTSIDE RECORDS SUMMARY | 2025-05-26 10:05 | XMS_ITS | Clinical Summary ---
Author Organization [facility] tem Address [id number] [address] [place] [address] Care Team Providers Care Urban Designer Name Role Phone Services, [facility] Primary Care Provider Allergies No known [...] tablet (200 mg total) before bedtime. 04/11/20 025 Active Problems Problem Noted Date Diagnosed Date Heart palpitations 03/13/2024 Estimated Date of Delivery Comme nts Yes 10/02/2025 Based on last me nstrual period of 12/26/2024 Encounters Date Type Department Care Team Description 05/24/2025 Orders Only Maternal- Medicine at [place] [address] [place] [phone] Bethany Lundy LPN Acute palmoplantar pustular psoriasis; Chronic hypertension affecting ; Severe obesity due to excess calories affecting , antepartum ([facility]); Hypertension affecting in second trimester 05/24/2025 Orders Only Maternal- Medicine at [place] [address] [place] [phone] Bethany Lundy LPN Acute palmoplantar pustular psoriasis (Primary Dx); Chronic hypertension affecting ; Severe obesity due to excess calories affecting , antepartum (CMS-HCC); Hypertension affecting in second trimester 05/17/2025 9:00 AM EDT Office Visit Maternal- Medicine at [place] [address] [place] [phone] Clair Hare MD Hamilton, Ira, MD Chronic hypertension affecting (Primary Dx); Acute palmoplantar pustular psoriasis; Severe obesity due to excess calories affecting , antepartum (CMS-HCC); 20 weeks gestation of 05/17/2025 7:12 AM EDT - 05/17/2025 11:59 PM EDT Hospital Encounter [facility] US Imaging [address] [place] [phone] Hypertension affecting in second trimester Discharge Disposition: Home 05/17/2025 Results Follow-Up Maternal- Medicine at [facility] [address] [place] [phone] Sheila Cruz MD B-type natriuretic peptide 05/17/2025 Orders Only Maternal- Medicine at [facility] [address] [place] [address] Bethany Lundy LPN Acute palmoplantar pustular psoriasis (Primary Dx); Chronic hypertension affecting ; Severe obesity due to excess calories affecting , antepartum ([facility]); Hypertension affecting in second trimester 05/15/2025 Travel 04/29/2025 6:45 PM EDT - 04/29/2025 7:24 PM EDT Emergency [facility] - Emergency [address] [place] [address] Tian Rodriguez MD Laceration of right thumb without foreign body without damage to nail, initial encounter (Primary Dx) Discharge Disposition: Home 04/29/2025 Travel 04/23/2025 Orders Only Maternal- Medicine at [facility] [address] [phone] Ref Prov, Not In System 04/23/2025 Abstract Maternal- Medicine at [facility] [address] [place] [phone] Sheila Cruz MD 04/19/2025 Orders Only Maternal- Medicine at [facility] [address] [phone] Joann Moise, NING Hypertension affecting in second trimester (Primary Dx) [...] Info) Description 06/18/2025 8:00 AM EDT Appointment [facility] - Ultrasound [address] [place] [address] 06/18/2025 2:00 PM EDT Telemedicine Maternal- Medicine at [facility] [address] [place] [address] Sheila Cruz MD [address] [facility] 1[address] [place] [address] Health Maintenance Due Date Last Done Comments [...] Chronic hypertension affecting 20 weeks gestation of US M[facility] COMPREHENSIVE ANATOMIC SURVEY Routine 05/17/2025 9:10 AM EDT Hypertension affecting in second trimester UNLISTED LAB TEST Routine 05/17/2025 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 Severe obesity due to excess calories affecting , antepartum ([facility]-H[facility]) Hypertension affecting in second trimester PM ED [...] 46 <=100 pg/mL 05/17/2025 11:[address] [facility] Blood Venous blood / Unknown Venipuncture / Unknown 05/17/2025 9:54 AM EDT 05/17/2025 9:54 AM EDT us Sheila Cruz MD LAB BLOOD ORDERABLES Final Resul t [facility] [address] [place] [address], [place] [phone] * [facility] COMPREHENSIVE ANATOMIC SURVEY (05/17/2025 9:10 AM EDT) Anatomical Region Laterality Modality OB-RN UNIT MANAGER Ultrasound 05/17/2025 7:47 AM EDT Narrative 05/17/2025 4:39 PM EDT NAME: PAULA HUGHES : 1990 SEX: F Accession Number: [id number] ORDERING PHYSICIAN: ISRAEL BRODERICK REFERRING PHYSICIAN: ISRAEL BRODERICK Coding ----- --------- Procedures [id number]: Ultrasound, uterus, real time with image documentation, and maternal evaluation plus detailed anatomic examination, transabdominal approach;single or first gestation [id number]: Ultrasound, uterus, real time with image documentation, transvaginal Indication ----- --------- Screening for Anatomic Survey , Screening for cervical length , Anxiety , Depression , Gestational hypertension without significant proteinuria , Obesity in , History of gestational hypertension. History ----- --------- OB History 2. Para 1 [id number] Maternal Assessment ----- --------- Physical Exam Height [...] EFW (oz) 13 oz EFW by: Hadlock ([id number]) Extended Tibia 23.0 mm 18w 1d 2% [...] Heart/Thorax: RVOT view. LVOT view. 3-vessel view. 3-cnfmkl-pcksero view. Situs. Bicaval view. Cardiac position. Cardiac [...] cyst noted. Recommendations ----- --------- Please see [facility] documentation from today. The patient is scheduled in four to six week(s) to complete anatomic survey. Subsequent follow up or other follow up as clinically determined by primary OB provider unless otherwise specified by [facility]. Results forwarded to ordering provider so they can follow up with the patient as necessary. Procedure Note Sheila Cruz MD - 05/17/2025 NAME: PAULA HUGHES : 1990 SEX: F Accession Number: [id number] ORDERING PHYSICIAN: ISRAEL BRODERICK REFERRING PHYSICIAN: ISRAEL BRODERICK Coding ----- --------- Procedures [id number]: Ultrasound, uterus, real time with imagedocumentation, and maternal evaluation plus detailed anatomic examination, transabdominalapproach;single or first gestation 59622: Ultrasound, uterus, real time with imagedocumentation, transvaginal Indication ----- --------- Screening for Anatomic Survey , Screening for cervical length , Anxiety ,Depression , Gestational hypertension without significant proteinuria , Obesity in , History of gestationalhypertension. History ----- --------- OB History 2. Para 1 [id number] Maternal Assessment ----- --------- Physical Exam Height [...] EFW (oz) 13 oz EFW by: Hadlock ([id number]) Extended Tibia 23.0 mm 18w 1d 2% [...] Heart/Thorax: RVOT view. LVOT view. 3-vessel view. 3-divstf-yjyldjn view.Situs. Bicaval view. Cardiac position. Cardiac axis. [...] thepatient as necessary. us Israel Broderick DO [facility] US ORDERABLES Final Result * Unlisted Lab Test (05/17/2025) Free Cell Dna low risk MANUALLY TRANSCRIBED RESULTS Blood (Arm) 05/17/2025 Sehila Cruz MD LAB BLOOD ORDERABLES Final Resul t Performing Organization Address City/[facility] Co de Phone Number MANUALLY TRANSCRIBED RESULTS * Laceration Repair (04/29/2025 6:52 PM EDT) Narrative Tian Rodriguez MD - 04/29/2025 6:52 PM EDT Tian Rodriguez MD 04/29/2025 8:19 PM Laceration Repair Date/Time: 04/29/2025 6:52 PM Performed by: Tian Rodriguez MD Authorized by: Tian Rodriguez MD Consent: Consent obtained: Verbal Consent given by: Patient Risks, benefits, and alternatives were discussed: yes Risks discussed: Infection and pain Alternatives discussed: No treatment Marion protocol: Procedure explained and questions answered to patient or proxy's satisfaction: yes Patient identity confirmed: Verbally with patient Anesthesia: Anesthesia method: None Laceration details: Location: Finger Finger location: R thumb Length (cm): 0.5 Exploration: Hemostasis achieved with: Direct pressure Contaminated: no Skin repair: Repair method: Tissue adhesive Repair type: Repair type: Simple Post-procedure details: Dressing: Open (no dressing) Procedure completion: Tolerated Tian Rodriguez MD PROCEDURE/MINOR SURGICAL ORDERA BLES Final Result * Uric acid (04/17/2025 1:11 PM EDT) Blood Venous blood / Unknown Not In System Ref Prov LAB BLOOD ORDERABLES Alma l Result Performing Organization Address City/[facility] Co de Phone Number MANUALLY TRANSCRIBED RESULTS * APTT (04/17/2025) APTT 26.5 MANUALLY TRANSCRIBED RESULTS Blood Venous blood / Unknown 04/17/2025 us Not In System Ref Prov LAB BLOOD ORDERABLES Alma l Result Performing Organization Address [facility] Phone Number MANUALLY TRANSCRIBED RESULTS * Protime & INR (04/17/2025) Blood Venous blood / Unknown us Not In System Ref Prov LAB BLOOD ORDERABLES Alma l Result Performing Organization Address [facility] Phone Number MANUALLY TRANSCRIBED RESULTS * CBC [...] ORDERABLES Alma l Result Performing Organization Address [facility] de Phone Number MANUALLY TRANSCRIBED RESULTS * BUN (04/17/2025) Blood Venous blood / Unknown us Not In System Ref Prov LAB BLOOD ORDERABLES Edit ed Result - Final Performing Organization Address [facility] de Phone Number MANUALLY TRANSCRIBED RESULTS * Creatinine includes GFR, serum (04/17/2025) Blood Venous blood / Unknown us Not In System Ref Prov LAB BLOOD ORDERABLES Edit ed Result - Final Performing Organization Address [facility] de Phone Number MANUALLY TRANSCRIBED RESULTS * HIV 1&2 AB/AG Screen (P24 AG) (03/20/2025) HIV 1&2 AB/AG NON REACTIVE MAN UALLY TRANSCRIBED RESULTS Blood Venous blood / Unknown us Not In System Ref Prov LAB BLOOD ORDERABLES Alma l Result MANUALLY TRANSCRIBED RESULTS * Rubella IGG immune status (03/20/2025) Rubella immune IgG IMMUNE MANUALLY TRANSCRIBED RESULTS Blood Venous blood / Unknown us Not In System Ref Prov LAB BLOOD ORDERABLES Alma l Result MANUALLY TRANSCRIBED RESULTS * Syphilis Total (Unknown Syphilis Status) (03/20/2025) Syphilis NON REACTIVE MANUALL Y TRANSCRIBED RESULTS Blood Venous blood / Unknown us Not In System Ref Prov LAB BLOOD ORDERABLES Alma l Result Performing Organization Address [facility] Co de Phone Number MANUALLY TRANSCRIBED RESULTS * Hepatitis C(HCV) Ab w/ Reflex to PCR (03/20/2025) Hepatitis C Antibody NON REACTIVE MANUALLY TRANSCRIBED RESULTS Blood Venous blood / Unknown us Not In System Ref Prov LAB BLOOD ORDERABLES Alma l Result Performing Organization Address City/[facility] Co de Phone Number MANUALLY TRANSCRIBED RESULTS * Drug Screen, Urine [...] ORDERABLES Final Re sult Performing Organization Address City/[facility]/ZIP Co de Phone Number MANUALLY TRANSCRIBED RESULTS * Hepatitis B surface antigen (03/20/2025) Hepatitis B Surface Antigen NEGATIVE MANUALLY TRANSCRIBED RESULTS Blood Venous blood / Unknown us Not In System Ref Prov LAB BLOOD ORDERABLES Alma l Result Performing Organization Address City/[facility]/ZIP Co de Phone Number MANUALLY TRANSCRIBED RESULTS * Type and screen (03/20/2025) Abo/Rh(D) B Positive MANUALLY TRANSCRIBED RESULTS Antibody Screen NEGATIVE MANUALLY TRANSCRIBED RESULTS Blood Venous blood / Unknown us Not In System Ref Prov BLOOD BANK TEST ORDERABLE S Final Result Performing Organization Address City/[facility] Co de Phone Number MANUALLY TRANSCRIBED RESULTS * Hemoglobin A1c (03/20/2025) Hemoglobin A1C 5.1 4.0 - 6.0 % MANUALLY TRANSCRIBED RESULTS Blood Venous blood / Unknown us Scanning Provider External LAB BLOOD ORDERABLES Final Result Performing Organization Address City/[facility] Co de Phone Number MANUALLY TRANSCRIBED RESULTS * Pap Smear (11/23/2022 5:20 AM EDT) 11/23/2022 5:20 AM EDT 11/23/2022 5:29 AM EDT Narrative COPATH - 11/24/2022 1:05 PM EDT [facility] [address] [place] [address] Gynecologic Cytology Consultation Patient Name:ELLEN RAMIRES:1990 (Age: 32)Gender:FTaken:11/23/2022Reported:11/24/2022hysician(s):Bethany Raymundo CNP ([phone])Copy To: Rec. #:[id number]: #[id number] Final Cytologic Interpretation ThinPrep Pap Test (Cervical): Satisfactory for evaluation. A transformation zone component is present. NEGATIVE FOR INTRAEPITHELIAL LESION OR MALIGNANCY. lani/11/24/2022 Interpretation performed at [facility], [address] [place] [address], License number: [id number]. Electronically Signed Out By ZORA Walter(ASCP) Date of Last Menstrual Period: (None Given) Other Clinical Conditions: Z12.4 Screening for malignant neoplasm of cervix Z11.51 Screening for HPV Source of Specimen ThinPrep Pap Test (Cervical) Thin Prep Pap (RN UNIT MANAGER) Fee Code(s): G0145 us Bethany Raymundo FAGOT HEATER HELPER-CRULLER MAKER PATHOLOGY/CYTOLOGY JYOTSNA STANLEY Final Result COPATH from Last 3 Months or Most Recently Relevant to Health Maintenance Insurance [facility] MEDICAID Care Teams Urban Designer Relationship Specialty Start Date End Date Services, [facility] [address] [place], [place] PCP - General Family Medicine 11/03/24
--- OUTSIDE RECORDS SUMMARY | 2025-05-26 10:05 | XMS_ITS | Encounter Summary ---
Author Organization [facility] Address [address] [place] [address] Care Team Providers Care Corporate Accounting Manager Name Role Phone Judy Caal Unavailable Unavailable Encounter Details Date Type Department Care Team (Late st Contact Info) Description 06/21/2024 Abstract LIANA HEAD [address] [facility] [address] [address] Caesar Broderick DO [address] [facility] [address] [place], [facility] Social History Tobacco Use Types Packs/Day [...] 3:20 PM EDT Routine LIANA HEAD [address] [place] [address] Rosie Qiu, JEM [address] [place] [address] 06/24/2025 1:50 PM EST Routine LIANA HEAD [address] [place] [address] Caesar Broderick DO [address] [place], [facility] 12/16/2025 3:00 PM EDT Office Visit LIANA HEAD [address] [facility] [address] [place] [phone] Caesar Broderick DO [address] [place] [address] documented as of this encounter Visit Diagnoses Not on filedocumented in this encounter Care Teams Corporate Accounting Manager Relationship Specialty Start Date End Date Judy Caal PCP - [facility] PERSONAL COUNSELOR 02/20/24 documented as of this encounter
--- OUTSIDE RECORDS SUMMARY | 2025-05-26 10:05 | XMS_ITS | CCD ---
Author Organization [facility] Care Team Providers Care Baseball Player Name Role Phone Pinky Singh Unavailable AfuaJudy Unavailable Unavailable Unavailable Primary Care Provider Unavailabl e Services, [facility] Primary Care Provider Caesar Broderick DO Attending Provider Caesar Broderick Attending Unavailable Davie, Caesar Admitting Unavailable White BLOCKER AND SEWER, June A Unavailable Unavailable ROBBIE LOPEZ Attending Unavailable Services, [facility] Primary Care Provider CAESAR BRODERICK Attending Unavailable DAVIE, CAESAR Attending Unavailable DAVIE, CAESAR Attending Unavailable DAVIE, CAESAR Attending Unavailable DAVIE, CAESAR Attending Unavailable DAVIE, CASEAR Attending Unavailable DAVIE, CAESAR Attending Unavailable DAVIE, CAESAR Attending Unavailable DAVIE, CAESAR Attending Unavailable SERVICES, [facility] Care Unava ilable MILLIE VILLAGRAN Attending Unavailable SERVICES, [facility] Care Unava ilable FRANCIE ABRAMS Attending Unavailable CAESAR BRODERICK R Referring Unavailable SERVICES, [facility] Care Unava ilable YORDY CRUZ Attending Unavailable DAVIEDEWEYY R Referring Unavailable SERVICES, [facility] Unava ilable CAESAR BRODERICK R Referring Unavailable SERVICES, [facility] Unava ilable Medications Current Medications Medication Drug Class(es) Dates Sig (Normalized) Sig (Original) amoxicillin 875 mg / clavulanate 125 mg oral tablet (2 sources) Penicillin-class Antibacterial Start: 11-24-2023 take 1 tablet by mouth twice daily Amoxicillin-Pot Clavulanate 875-125 mg tablet Active 1 TAB PO Twice daily November 24, 2023 12:00am aspirin 81 mg delayed release oral tablet (3 sources) Platelet Aggregation Inhibitor, Nonsteroidal Anti-inflammatory Drug [...] Discontinued clobetasol propionate 0.0005 mg/mg topical ointment (3 sources) Corticosteroid Start: 05-17-2025 End: 05-31-2025 clobetasoL [...] nostril labetalol hydrochloride 200 mg oral tablet (10 sources) beta-Adrenergic Noah Start: 05-16-2025 take 1 tablet by mouth once at bedtime labetalol (Normodyne) 200 MG tablet Indications: Second trimester (HHS-HCC) , Gestational hypertension, antepartum (HHS-HCC) TAKE 1 TABLET (200 MG) BY MOUTH IN THE MORNING AND AT BEDTIME 60 tablet 2 05/16/2025 Active Start: 04-11-2025 End: 05-11-2025 take 1 tablet [...] Discontinued magnesium oxide 400 mg oral tablet (14 sources) Start: 03-28-2025 End: 04-27-2025 take 1 [...] osmotic 24 hr extended release oral tablet (4 sources) Dihydropyridine Calcium Channel Noah Start: 05-17-2025 take 1 tablet by mouth once daily Procardia XL 30 MG 24 hr tablet Take 30 mg by mouth Daily 05/17/2025 Active Start: 05-17-2025 take 1 tablet [...] 2023 12:00am 115/iron/folic acid ( 19 ORAL) (3 sources) take 1 tablet by mouth in [...] Hypertension complicating ; childbirth and the puerperium (11 sources) Hypertension complicating ; Translations: [Unspecified maternal hypertension, second trimester] Onset: 05-17-2025 04-19-2025 Chronic Hypertension complicating ; childbirth and the puerperium (10 sources) Hypertension AND/OR vomiting complicating childbirth AND/OR puerperium; Translations: [Gestational [-induced] hypertension without significant proteinuria, unspecified trimester] Onset: 04-25-2025 04-11-2025 Episodic Immunizations and screening for infectious disease (6 sources) Contact with and (suspected) exposure to other viral communicable diseases; Translations: [Contact with or exposure to other viral diseases] Episodic Menstrual disorders (2 sources) Amenorrhea; Translations: [Amenorrhea, unspecified] 03-01-2025 Chronic Nutritional deficiencies (4 sources) Vitamin D deficiency; Translations: [Vitamin D deficiency, unspecified] Onset: 05-23-2025 03-01-2025 Chronic Open wounds of extremities (2 [...] circulatory system] 03-01-2025 Episodic Other complications of (4 sources) Maternal obesity complicating , childbirth and the puerperium, antepartum; Translations: [Obesity complicating , unspecified trimester] 05-17-2025 Chronic Other complications of (1 source) Obesity complicating , unspecified trimester; Translations: [Obesity complicating , unspecified trimester] Onset: 05-17-2025 Chronic Other complications of (1 source) History of pre-eclampsia; Translations: [Supervision of with other poor reproductive or obstetric history, unspecified trimester] Onset: 05-23-2025 05-23-2025 Episodic Other endocrine disorders (20 sources) Polycystic ovary syndrome; Translations: [Polycystic ovarian syndrome] Onset: 07-30-2024 07-23-2024 Chronic Other female genital disorders (4 sources) Abnormal uterine bleeding; Translations: [Abnormal uterine and vaginal bleeding, unspecified] 04-10-2024 Chronic Other female genital disorders (2 sources) Abnormal uterine and vaginal bleeding, unspecified; Translations: [Abnormal uterine and vaginal bleeding, unspecified] Onset: 01-03-2025 Chronic Other inflammatory condition of skin (4 sources) Pustular psoriasis of palms and soles; 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] 05-17-2025 Chronic Other inflammatory condition of skin (1 source) Pustulosis palmaris et plantaris; 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] Onset: 05-17-2025 Chronic Other nutritional; endocrine; and metabolic disorders (1 source) Morbid (severe) obesity due to excess calories; Translations: [Morbid (severe) obesity due to excess calories] Onset: 05-17-2025 Chronic Other and delivery including normal [...] [20 weeks gestation of ] 05-17-2025 Episodic Residual codes; unclassified (1 source) 20 weeks gestation of ; Translations: [20 weeks gestation of ] Onset: 05-17-2025 Episodic Unclassified (1 source) gHTN Onset: 05-17-2025 Past or Other Problems Problem Classification Problem Date Documented Da te Episodic/Chronic Cardiac dysrhythmias (7 sources) Palpitations; Translations: [Palpitations] Onset: 03-13-2024 03-13-2024 [...] Test Name Value Interpretation Reference Range Facility AFP, SERUM, OPEN SPINA BIFID Aon 05-25-2025 AFP MOM 0.85 . [facility] AFP VALUE 38.2 ng/mL . [facility] COMMENT: Comment . [facility] Comment on above: Gema Ortez , Ph.D., [facility] Director References: Available Upon Request. Multiples Of Median Cutoffs For AFP Elevations Kumar 2.5 Black 2.8 IDD 2.0 Twins 4.5 Abbreviation Definitions IDD - Insulin Dep Diabetes OSBR - Open Spina Bifida Risk For further inquiries contact [employer] at [phone]. This test was developed and its performance characteristics determined by [employer] It has not been cleared or approved by the Food and Drug Administration. Performed at: [facility] [address] [place], [place] [id number] Jacquard Loom Weaver: Jesus Saleh [facility], Phone: [phone] GEST. AGE ON COLLECTION DATE 23.[address] [facility] GESTAT. AGE BASED ON LMP . [facility] Comment on above: Recalculations are n ot recommended when gestational dating by LMP and ultrasound are within 10 days. INSULIN DEP DIABETES No . [facility] Healthcare INTERPRETATION Comment . [facility] Comment on above: Interpretation: Scre en Negative This result is screen negative for [...] Customer Services to discuss available options. The [employer] recommends amniocentesis be offered to women age 35 and older. MAT[age]ROS 35.[address] [facility] MULTIPLE GESTATION No . [facility] H e[facility] [place] [place] [id number] . [facility] m[facility] RACE . [facility] e RESULTS Report . [facility] TEST RESULTS: Negative . [facility] care WEIGHT 282 . lbs [facility] N N LMP [id number] 2 9 N 1 282 N N N N N White/ [facility] Healthcar e Unlisted Lab Teston 05-24-20 25 Free Cell Dna low risk [facility] B-TYPE NATRIURETIC PEPTIDEon 05-17-2025 Natriuretic peptide B (Bld) [Mass/Vol] 46 pg/mL Normal <=100 [facility] Comment on above: Performed By: #### B BALLAST CLEANING OPERATOR #### [facility] [address] [place] [address] VIR Urinalysis macro (dipstick) panel (U)on 04-25-2025 Bilirubin, UA Negative Negative - 4(70) +++ mg/dL [facility] Blood, UA Negative Negative - 50 Surjit/mcL [facility] Clarity, UA Clear [facility] Healthmn re Color, UA Yellow [facility] Healthcar e Glucose, UA Negative Negative - 1999(110) ++++ mg/dL [facility] Interpretation and review of laboratory results Normal [facility] Ketones, UA Negative Negative - 160(16) ++++ mg/dL [facility] Leukocytes, UA Negative Negative - 500+++ Kaleigh/mcL [facility] Nitrite, UA Negative Negative - Positive [facility] pH, UA 6 5 - 9 [facility] Healthcar e Protein, UA Negative Negative - 1999(20) ++++ mg/dL [facility] Spec Grav, UA 1.015 1 - 1.03 [facility] Urobilinogen, UA 1.0 0.2 - 12 mg/dL [facility] TB TOTAL PROTEIN 24 HOUR UR INEon 04-21-2025 TOTAL PROTEIN URINE RANDOM <6.0 NINF - 11.9 mg/dL [facility] TOTAL VOLUME 24 HOUR URINE 2500 mL/24hr [facility] Healthcar e ALL CBC WITH AUTO DIFFon BASOPHILS ABSOLUTE AUTO 0 [facility] Basophils/100 WBC (Bld) 0.2 % 0.2 - 2.0 % [facility] Eosinophils/100 WBC (Bld) 2.9 % 0.9 - 7.0 % [facility] Erythrocyte distribution width (RBC) [Ratio] 12.3 % 11.0 - 15.0 % [facility] IMMATURE GRANULOCYTES ABS AUTO 0.[address] [facility] Immature granulocytes/100 WBC (Bld) 0.7 % High 0.0 - 0.5 % [facility] Interpretation and review of laboratory results Abnormal [facility] LYMPHOCYTES ABSOLUTE AUTO 2 [facility] Lymphocytes/100 WBC (Bld) 15.4 % Low 20.5 - 60.0 % [facility] MCH (RBC) [Entitic mass] 31.3 pg 26.7 - 34.[address] [facility] MCHC (RBC) [Mass/Vol] 33.6 g/dL 29.9 - 35.2 g/dL [facility] MCV (RBC) [Entitic vol] 93.2 fL 81.0 - 99.[address] [facility] MONOCYTES ABSOLUTE AUTO 0.5 [facility] Monocytes/100 WBC (Bld) 4.1 % 1.7 - 12.0 % [facility] NEUTROPHILS ABSOLUTE AUTO 9.[address] [facility] Neutrophils/100 WBC (Bld) 76.7 % High 43.0 - 75.0 % [facility] Platelet mean volume (Bld) [Entitic vol] 10.2 fL 9.5 - 13.5 [facility]L [facility] # [facility].4 [facility] e TBH PLT 251 [facility] e TB RBC 3.8 Low [facility] e TB WBC 13 High [facility] APTTon 04-17-2025 aPTT Coag (Bld) [Time] 26.5 s Pr [facility] CBC without diffon Platelets (Bld) [#/Vol] 251 10*3/uL [facility] Rbc Mcv (Fl) By Automated Count 93.2 [facility] Laboratory - Hematology and Cell countson 04-17-2025 Hematocrit (Bld) [Volume fraction] 35.4 % [facility] e Hemoglobin (Bld) [Mass/Vol] 11.9 g/dL [facility] No Panel Informationon 04-17 [facility] e Urinalysis macro (dipstick) panel (U)on 04-11-2025 Bilirubin, UA Negative Negative - 4(70) +++ mg/dL [facility] Blood, UA Negative Negative - 50 Surjit/mcL [facility] Clarity, UA Clear [facility] re Color, UA Yellow [facility] e Glucose, UA Negative Negative - 2000(110) ++++ mg/dL [facility] Interpretation and review of laboratory results Normal [facility] Ketones, UA Negative Negative - 160(16) ++++ mg/dL [facility] Leukocytes, UA Negative Negative - 500+++ Kaleigh/mcL [facility] Nitrite, UA Negative Negative - Positive [facility] pH, UA 6 5 - 9 [facility] Health[facility] e Protein, UA Negative Negative - 1999(20) ++++ mg/dL [facility] Spec Grav, UA 1.015 1 - 1.03 [facility] Urobilinogen, UA 1.0 0.2 - 12 mg/dL [facility] Urinalysis macro (dipstick) panel (U)on 03-28-2025 Bilirubin, UA Negative Negative - 4(70) +++ mg/dL [facility] Blood, UA Negative Negative - 50 Surjit/mcL [facility] Clarity, UA Clear [facility] re Color, UA Yellow [facility] Glucose, UA Negative Negative - 1999(110) ++++ mg/dL [facility] Interpretation and review of laboratory results Abnormal [facility] Ketones, UA Negative Negative - 160(16) ++++ mg/dL [facility] Leukocytes, UA Positive Negative - 500+++ Kaleigh/mcL [facility] Comment on above: 2+ Nitrite, UA Negative Negative - Positive [facility] pH, UA 6 5 - 9 [facility] Healthcar e Protein, UA Negative Negative - 1999(20) ++++ mg/dL [facility] Spec Grav, UA 1.02 1 - 1.03 [facility] Urobilinogen, UA 1.0 0.2 - 12 mg/dL [facility] Healthcar e ALL CBC WITH AUTO DIFFon BASOPHILS ABSOLUTE AUTO 0.1 [facility] Basophils/100 WBC (Bld) 0.5 % 0.2 - 2.0 % [facility] Eosinophils/100 WBC (Bld) 4 % 0.9 - 7.0 % [facility] Erythrocyte distribution width (RBC) [Ratio] 12.2 % 11.0 - 15.0 % [facility] IMMATURE GRANULOCYTES ABS AUTO 0.[address] [facility] Immature granulocytes/100 WBC (Bld) 0.6 % High 0.0 - 0.5 % [facility] Interpretation and review of laboratory results Abnormal [facility] LYMPHOCYTES ABSOLUTE AUTO 2.6 [facility] Lymphocytes/100 WBC (Bld) 18.4 % Low 20.5 - 60.0 % [facility] MCH (RBC) [Entitic mass] 31.5 pg 26.7 - 34.[address] [facility] MCHC (RBC) [Mass/Vol] 34.1 g/dL 29.9 - 35.2 g/dL [facility] MCV (RBC) [Entitic vol] 92.4 fL 81.0 - 99.[address] [facility] MONOCYTES ABSOLUTE AUTO 0.6 [facility] Monocytes/100 WBC (Bld) 4.3 % 1.7 - 12.0 % [facility] NEUTROPHILS ABSOLUTE AUTO 10.[address] [facility] Neutrophils/100 WBC (Bld) 72.2 % 43.0 - 75.0 % [facility] Platelet mean volume (Bld) [Entitic vol] 10.2 fL 9.5 - 13.5 fL [facility] are TBH EO # 0.6 [facility] TBH PLT 261 [facility] TB RBC 3.94 Low [facility] Health[facility] e TBH WBC 13.9 High [facility] Healthcar e [facility] CBC without diffon Platelets (Bld) [#/Vol] 261 10*3/uL [facility] Rbc Mcv (Fl) By Automated Count 92.4 [facility] Drug Screen, Urineon 025 Amphetamine/Methamphet amine Negative [facility]biturates [facility] Benzodiazepines Negative [facility] Cocaine Metabolite Negative [facility] Methadone Negative [facility] Opiates Negative [facility] Oxycodone Negative [facility] Phencyclidine Negative [facility] Thc Marijuana, Urine Negative [facility] HBV surface Ag IA Qlon 03-20 Hepatitis B Surface Antigen Negative [facility] HCV Ab IA Qlon 03-20-2025 HCV Ab Ql (S) Non-Reactive [facility] HIV 1+2 Ab+HIV1 p24 Ag IA Ql on 03-20-2025 HIV 1&2 AB/AG Non-Reactive [facility] Hemoglobin A1con 03-20-2025 HbA1c (Bld) [Mass fraction] 5.1 % 4.0 - 6.0 % [facility] Laboratory - Hematology and Cell countson 03-20-2025 Hematocrit (Bld) [Volume fraction] 36.4 % [facility] Hemoglobin (Bld) [Mass/Vol] 12.4 g/dL [facility] EVIIVO No Panel Informationon 03-20 [facility] Rubella IGG immune statuson 03-20-2025 Rubella immune IgG IMMUNE [facility] T. pallidum IgG+IgM IA Ql (S )Ordered By: Christina Bertrand on 03-20-2025 Syphilis Non-Reactive [facility] Type and screenon 03-20-2025 Abo/Rh(D) Positive [facility] HCG ( test) Ql (U)o n 03-01-2025 Interpretation and review of laboratory results Abnormal [facility] Preg Test, Ur Positive Negative [facility] [employer] e US OB TRANSVAGINALon 025 US OB [...] UA Negative Negative - 4(70) +++ mg/dL [facility] Blood, UA Negative Negative - 50 Surjit/mcL [facility] Clarity, UA Clear [facility] re Color, UA Yellow [facility] Healthcar e Glucose, UA Negative Negative - 1999(110) ++++ mg/dL [facility] Interpretation and review of laboratory results Normal [facility] Ketones, UA Negative Negative - 160(16) ++++ mg/dL [facility] Leukocytes, UA Negative Negative - 500+++ Kaleigh/mcL [facility] Nitrite, UA Negative Negative - Positive [facility] pH, UA 7 5 - 9 [facility] e Protein, UA Negative Negative - 1999(20) ++++ mg/dL [facility] Spec Grav, UA 1.005 1 - 1.03 [facility] Urobilinogen, UA 0.2 0.2 - 12 mg/dL [facility] Health[facility] e ALL PROGESTERONEon 5 PROGESTERONE 8.7 ng/mL . [facility] are Comment on above: Follicular phase 0.1 - 0.9 Luteal phase 1.8 - 23.9 Ovulation phase 0.1 - 12.0 First trimester 11.0 - 44.3 Second trimester 25.4 - 83.3 Third trimester 58.7 - 214.0 Postmenopausal 0.0 - 0.1 Performed at: [facility] [id number] Jacquard Loom Weaver: Yobany Blount PhD, Phone: [phone] [facility]ITALService[facility] Online Doctor e PATHOLOGY REQUEST FOR LAB CO RPon 12-26-2024 PATHOLOGY REQUEST FOR LAB RENA [facility] Comment on above: See report. Scanned copy available in EMR. SKIN SPECIMEN [facility] [employer] e ALL PROGESTERONEon 5 PROGESTERONE 37.9 ng/mL . [facility] are Comment on above: Follicular phase 0.1 - 0.9 Luteal phase 1.8 - 23.9 Ovulation phase 0.1 - 12.0 First trimester 11.0 - 44.3 Second trimester 25.4 - 83.3 Third trimester 58.7 - 214.0 Postmenopausal 0.0 - 0.1 Performed at: [facility] [id number] Jacquard Loom Weaver: Yobany Blount PhD, Phone: [phone] [employer] [facility] Healthcar e Pathology Request for Lab Co rpon 12-18-2024 Pathology Request for Lab Rena Normal [facility] Comment on above: Order Comment: SKIN SPECIMEN Result Comment: See report. Scanned copy available in EMR. PERFORMED BY: [address] [place] [id number] PATHOLOGIST FOOD CASHIER ANAHI TRAN M.D. Performed By: #### P ATH TO [facility] #### [address] IGP,APTIMA HPV,AGE GDLNon AGE GDLN ACOG TESTING Note . [facility] Comment on above: TESTS RESULT FLAG UN ITS REF RANGE LAB Clinician Provided Cytology Information Source.............Cervix;Endocervix No. of containers..01 ThinPrep Vial Age Algo ACOG Marjorie... 30-65 01 FLAG LEGEND: L-Low Normal,H-High Normal,LL-Alert Low,HH-Alert High <-Panic Low,>-Panic High,A-Abnormal,AA-Critical Abnormal Performed at: 01 =G [facility] [address] Vonnie Woodard MD, HPV APTIMA Negative Negative [facility] Comment on above: This nucleic acid am plification test detects fourteen high- risk HPV types (16,18,31,33,35,39,45,51,52,56,58,59,66,68) without differentiation. Performed at: =G - [facility] [id number] Jacquard Loom Weaver: Vonnie Woodard MD, Phone: [phone] Performed at: - [facility] [id number] Jacquard Loom Weaver: Vonnie Woodard MD, Phone: [phone] IGP, APTIMA HPV, RFX 16/18,[address] [facility] Comment on above: TESTS RESULT FLAG UN ITS REF RANGE LAB DIAGNOSIS: 02 NEGATIVE FOR INTRAEPITHELIAL LESION OR MALIGNANCY. Specimen adequacy: 02 Satisfactory for evaluation. Endocervical and/or squamous metaplastic cells (endocervical component) are present. Performed by: Clinton Vyas, Social Media Content Specialist (ASCP) . 02 Note: Note 02 The [...] Low,>-Panic High,A-Abnormal,AA-Critical Abnormal Performed at: [address] [facility] [address] [place] [address] Vonnie Woodard MD, BRUSH-SPATULA CERVIX ENDOCERVIX CLINISYArohan FinancialS Healthcar e ALL PROGESTERONEon 5 PROGESTERONE 11.2 ng/mL . [facility] are Comment on above: Follicular phase 0.1 - 0.9 Luteal phase 1.8 - 23.9 Ovulation phase 0.1 - 12.0 First trimester 11.0 - 44.3 Second trimester 25.4 - 83.3 Third trimester 58.7 - 214.0 Postmenopausal 0.0 - 0.1 Performed at: - [facility] [address] [id number] Jacquard Loom Weaver: Yobany Blount PhD, Phone: [phone] [facility] [employer] CBC AND AUTO DIFFon 11-05-19 25 ABSOLUTE BASOPHIL 0.1 X10E9/L Normal 0.0-0.[address] [facility] Comment on above: Performed By: #### 4 8066-5, 77050-9, THYR, CBCA, CMP #### [facility] ([id number]) [address] [place] [address] ABSOLUTE NEUTROPHIL 6.9 X10E9/L High 1.5-6.6 [facility] Comment on above: Performed By: #### 4 8066-5, 02158-2, THYR, CBCA, CMP #### [facility] ([id number]) [address] [place] [address] Basophils/100 WBC (Bld) 1.1 % Normal [facility] Comment on above: Performed By: #### 4 8066-5, 60816-1, THYR, CBCA, CMP #### [facility] ([id number]) [address] [place] [address] Eosinophils (Bld) [#/Vol] 0.3 10*3/uL Normal 0.0-0.4 [facility] Comment on above: Performed By: #### 4 8066-5, , THYR, CBCA, CMP #### [facility] ([id number]) [address] [place] [address] Eosinophils/100 WBC (Bld) 2.3 % Normal [facility] Comment on above: Performed By: #### 4 8066-5, , THYR, CBCA, CMP #### [facility] ([id number]) [address] [place] [address] Erythrocyte distribution width (RBC) [Ratio] 12.6 % Normal 11.5-15.0 [facility] Comment on above: Performed By: #### 4 8066-5, , THYR, CBCA, CMP #### [facility] ([id number]) [address] [place] [address] Hematocrit (Bld) [Volume fraction] 40.4 % Normal 35-47 [facility] Comment on above: Performed By: #### 4 8066-5, , THYR, CBCA, CMP #### [facility] ([id number]) [address] [place] [address] Hemoglobin (Bld) [Mass/Vol] 13.7 g/dL Normal 11.7-15.5 [facility] Comment on above: Performed By: #### 4 8066-5, , THYR, CBCA, CMP #### [facility] ([id number]) [address] [place] [address] Lymphocytes (Bld) [#/Vol] 3.6 10*3/uL High 1.0-3.5 [facility] Comment on above: Performed By: #### 4 8066-5, , THYR, CBCA, CMP #### [facility] ([id number]) [address] [place] [address] Lymphocytes/100 WBC (Bld) 31.6 % Normal [facility] Comment on above: Performed By: #### 4 8066-5, , THYR, CBCA, CMP #### [facility] ([id number]) [address] [place] [address] MCH (RBC) [Entitic mass] 30.9 pg Normal 27-34 [facility] Comment on above: Performed By: #### 4 8066-5, , THYR, CBCA, CMP #### [facility] ([id number]) [address] [place] [address] 71551 MCHC (RBC) [Mass/Vol] 34.0 g/dL Normal 32-36 [facility] Comment on above: Performed By: #### 4 8066-5, , THYR, CBCA, CMP #### [facility] ([id number]) [address] [place] [address] 44266 MCV (RBC) [Entitic vol] 91 fL Normal 80-100 [facility] Comment on above: Performed By: #### 4 8066-5, , THYR, CBCA, CMP #### [facility] ([id number]) [address] [place] [address] 77453 Monocytes (Bld) [#/Vol] 0.6 10*3/uL Normal 0-0.9 [facility] Comment on above: Performed By: #### 4 8066-5, , THYR, CBCA, CMP #### [facility] ([id number]) [address] [place] [address] 91304 Monocytes/100 WBC (Bld) 5.4 % Normal [facility] Comment on above: Performed By: #### 4 8066-5, , THYR, CBCA, CMP #### [facility] ([id number]) [address] [place] [address] 12615 Neutrophils/100 WBC (Bld) 59.6 % Normal [facility] Comment on above: Performed By: #### 4 8066-5, , THYR, CBCA, CMP #### [facility] ([id number]) [address] [place] [address] 90928 Platelet mean volume (Bld) [Entitic vol] 7.9 fL Normal 7-12 [facility] Comment on above: Performed By: #### 4 8066-5, , THYR, CBCA, CMP #### [facility] ([id number]) [address] [place] [address] 19637 Platelets (Bld) [#/Vol] 346 10*3/uL Normal 150-450 [facility] Comment on above: Performed By: #### 4 8066-5, , THYR, CBCA, CMP #### [facility] ([id number]) [address] [place] [address] 83062 RBC COUNT 4.44 X10E12/L Normal 3.80-5.20 [facility] Comment on above: Performed By: #### 4 8066-5, , THYR, CBCA, CMP #### [facility] ([id number]) [address] [place] [address] 67336 WBC (Bld) [#/Vol] 11.5 10*3/uL High 4.0-11.0 [facility] Comment on above: Performed By: #### 4 8066-5, , THYR, CBCA, CMP #### [facility] ([id number]) [address] [place] [address] 60253 COMPREHENSIVE METABOLIC PANE [place]as 11-04-2024 Albumin [Mass/Vol] 4.0 g/dL Normal 3.2-5.[address] [facility] Comment on above: Performed By: #### 4 8066-5, , THYR, CBCA, CMP #### [facility] ([id number]) [address] [place] [address] 13682 ALP [Catalytic activity/Vol] 50 U/L Normal 39-130 [facility] Comment on above: Performed By: #### 4 8066-5, , THYR, CBCA, CMP #### [facility] ([id number]) [address] [place] [address] 70206 ALT [Catalytic activity/Vol] 19 U/L Normal 0-31 [facility] Comment on above: Performed By: #### 4 8066-5, , THYR, CBCA, CMP #### [facility] ([id number]) [address] [place] [address] 05650 Anion gap [Moles/Vol] 11 mmol/L Normal 5-15 [facility] Comment on above: Performed By: #### 4 8066-5, , THYR, CBCA, CMP #### [facility] ([id number]) [address] [place] [address] 92288 AST [Catalytic activity/Vol] 18 U/L Normal 0-41 [facility] Comment on above: Performed By: #### 4 8066-5, , THYR, CBCA, CMP #### [facility] ([id number]) [address] [place] [address] 40649 Bilirubin [Mass/Vol] 0.4 mg/dL Normal 0.3-1.2 [facility] Comment on above: Performed By: #### 4 8066-5, , THYR, CBCA, CMP #### [facility] ([id number]) [address] [place] [address] Calcium [Mass/Vol] 9.4 mg/dL Normal 8.5-10.[address] [facility] Comment on above: Performed By: #### 4 8066-5, , THYR, CBCA, CMP #### [facility] ([id number]) [address] [place] [address] 14953 Chloride [Moles/Vol] 106 mmol/L Normal 98-109 [facility] Comment on above: Performed By: #### 4 8066-5, , THYR, CBCA, CMP #### [facility] ([id number]) [address] [place] [address] 85058 CO2 [Moles/Vol] 23 mmol/L Normal 22-32 [facility] Comment on above: Performed By: #### 4 8066-5, , THYR, CBCA, CMP #### [facility] ([id number]) [address] [place] [address] 38617 Creatinine [Mass/Vol] 0.76 mg/dL Normal 0.40-1.00 [facility] Comment on above: Result Comment: METH OD TRACEABLE TO IDMS STANDARD Performed By: #### 4 8066-5, , THYR, CBCA, CMP #### [facility] ([id number]) [address] [place] [address] 50874 eGFR (CKD-EPI) NON-RACE DEPENDENT >90 Normal >59 [facility] Comment on above: Result Comment: Reported eGFR is based on the CKD-EPI 2020 equation that does not use a race coefficient. Performed By: #### 4 8066-5, 55077-1, THYR, CBCA, CMP #### [facility] ([id number]) [address] [place] [address] 45117 Glucose [Mass/Vol] 114 mg/dL High 65-[address] [facility] Comment on above: Performed By: #### 4 8066-5, , THYR, CBCA, CMP #### [facility] ([id number]) [address] [place] [address] 54304 Potassium [Moles/Vol] 4.1 mmol/L Normal 3.5-5.0 [facility] Comment on above: Performed By: #### 4 8066-5, , THYR, CBCA, CMP #### [facility] ([id number]) [address] [place] [address] 05601 Protein [Mass/Vol] 7.3 g/dL Normal 6.0-8.[address] [facility] Comment on above: Performed By: #### 4 8066-5, , THYR, CBCA, CMP #### [facility] ([id number]) [address] [place] [address] 84106 Sodium [Moles/Vol] 140 mmol/L Normal 134-[address] [facility] Comment on above: Performed By: #### 4 8066-5, , THYR, CBCA, CMP #### [facility] ([id number]) [address] [place] [address] 85995 Urea nitrogen [Mass/Vol] 13 mg/dL Normal 5-23 [facility] Comment on above: Performed By: #### 4 8066-5, , THYR, CBCA, CMP #### [facility] ([id number]) [address] [place] [address] 11577 Fibrin D-dimer DDU (PPP) [Ma ss/Vol]on 11-04-2024 D DIMER <150 Normal <255 [facility] Comment on above: Result Comment: Results <255 ng/mL DDU: The presence of a VTE can safely be excluded with a negative D-Dimer result and Wells score. A negative result doesn't exclude the possibility of DIC. The test be repeated along with other diagnostic tests if the patient's symptoms persist or worsen. [email or web address] Performed By: #### 4 8066-5, 40358-0, THYR, CBCA, CMP #### [facility] ([id number]) [address] [place] [address] 09597 HCG ( test) Ql (U)o n 11-04-2024 Beta HCG ( test) Ql (U) Negative Normal NEG [facility] Comment on above: Performed By: #### 2 106-3 #### [facility] ([id number]) [address] [place] [address] 97211 MAGNESIUMon 11-04-2024 Magnesium [Mass/Vol] 2.3 mg/dL Normal 1.8-2.6 [facility] Comment on above: Performed By: #### 4 8066-5, 41636-4, THYR, CBCA, CMP #### [facility] ([id number]) [address] [place] [address] 87401 THYROID PROFILEon 11-04-2024 Free T4 [Mass/Vol] 0.88 ng/dL Normal 0.61-1.[address] [facility] Comment on above: Performed By: #### 4 8066-5, 95239-6, THYR, CBCA, CMP #### [facility] ([id number]) [address] [place] [address] 08261 TSH 1.78 uIU/mL Normal 0.49-4.67 [facility] Comment on above: Performed By: #### 4 8066-5, 20142-7, THYR, CBCA, CMP #### [facility] ([id number]) [address] [place] [address] 88805 URN MACROSCOPIC NURon 2024 BILIRUBIN LEIDA Negative Normal NEG [facility] Comment on above: Performed By: #### N UM #### [facility] ([id number]) [address] [place] [address] [place] [address] BLOOD/HGB LEIDA Trace Abnormal NEG [facility] Comment on above: Performed By: #### N UM #### [facility] ([id number]) [address] [place] [address] [place] [address] GLUCOSE LEIDA Negative Normal NEG [facility] Comment on above: Performed By: #### N UM #### [facility] ([id number]) [address] [place] [address] [place] [address] KETONES LEIDA Negative Normal NEG [facility] Comment on above: Performed By: #### N UM #### [facility] ([id number]) [address] [place] [address] [place] [address] LEUKOCYTE ESTERASE LEIDA Small Abnormal NEG Pr [facility] Comment on above: Performed By: #### N UM #### [facility] ([id number]) [address] [place] [address] [place] [address] NITRITE LEIDA Negative Normal NEG [facility] Comment on above: Performed By: #### N UM #### [facility] ([id number]) [address] [place] [address] [place] [address] PH LEIDA 6.0 Normal 5.0-8.5 [facility] Comment on above: Performed By: #### N UM #### [facility] ([id number]) [address] [place] [address] [place] [address] PROTEIN LEIDA Negative Normal NEG [facility] Comment on above: Performed By: #### N UM #### [facility] ([id number]) [address] [place] [address] [place] [address] SPECIFIC GRAVITY LEIDA 1.025 Normal 1.003-1.035 [facility] Comment on above: Performed By: #### N UM #### [facility] ([id number]) [address] [facility], [place] [address] UROBILINOGEN LEIDA 0.2 eu/dL Normal <1.1 [facility] Comment on above: Performed By: #### N UM #### [facility] ([id number]) [address] [facility], [place] [address] XR CHEST 1 VWon 11-04-2024 XR CHEST 1 VW XR CHEST 1 VW History: Palpitations Exam/Technique: Portable upright AP chest Comparison: 11/12/2022 Findings: There is no active pulmonary or pleural disease displayed. Cardiac and mediastinal contours appear within normal limits on this AP projection. IMPRESSION: No evidence of active pulmonary disease. 7 Finalized by Tres Giron MD on 11/04/2024 1:02 AM Normal [facility] ALL PROGESTERONEon 5 PROGESTERONE 13.8 ng/mL . [facility] are Comment on above: Follicular phase 0.1 - 0.9 Luteal phase 1.8 - 23.9 Ovulation phase 0.1 - 12.0 First trimester 11.0 - 44.3 Second trimester 25.4 - 83.3 Third trimester 58.7 - 214.0 Postmenopausal 0.0 - 0.1 Performed at: [employer] [id number] Jacquard Loom Weaver: Yobany Blount PhD, Phone: [phone] [facility] ALL PROGESTERONEon 5 PROGESTERONE 22.3 ng/mL . [facility] Health are Comment on above: Follicular phase 0.1 - 0.9 Luteal phase 1.8 - 23.9 Ovulation phase 0.1 - 12.0 First trimester 11.0 - 44.3 Second trimester 25.4 - 83.3 Third trimester 58.7 - 214.0 Postmenopausal 0.0 - 0.1 Performed at: [employer] [id number] Jacquard Loom Weaver: Yobany Blount PhD, Phone: [phone] [facility] ALL PROGESTERONEon 4 PROGESTERONE 8.5 ng/mL . [facility] are Comment on above: Follicular phase 0. 1 - 0.9 Luteal phase 1.8 - 23.9 Ovulation phase 0.1 - 12.0 First trimester 11.0 - 44.3 Second trimester 25.4 - 83.3 Third trimester 58.7 - 214.0 Postmenopausal 0.0 - 0.1 Performed at: [address] [id number] Jacquard Loom Weaver: Yobany Blount PhD, Phone: [phone] [facility]ITALCedexisFREEM[facility] HE[facility] SYSTEMDrEd Online Doctor e ALL PROGESTERONEon PROGESTERONE 16.8 ng/mL . [facility] are Comment on above: Follicular phase 0.1 - 0.9 Luteal phase 1.8 - 23.9 Ovulation phase 0.1 - 12.0 First trimester 11.0 - 44.3 Second trimester 25.4 - 83.3 Third trimester 58.7 - 214.0 Postmenopausal 0.0 - 0.1 Performed at: [address] [id number] Jac[employer]ard Loom Weaver: Yobany Blount PhD, Phone: [phone] [facility]ITALCedexisFREEMAN HEALTH SYSTEMDrEd Online Doctor e ALL CBC WITH AUTO DIFFon BASOPHILS ABSOLUTE AUTO 0.1 [facility] Basophils/100 WBC (Bld) 0.6 % 0.2 - 2.0 % [facility] Eosinophils/100 WBC (Bld) 2.8 % 0.9 - 7.0 % [facility] Erythrocyte distribution width (RBC) [Ratio] 12.1 % 11.0 - 15.0 % [facility] Hematocrit (Bld) [Volume fraction] 40.6 % 36.0 - 48.0 % [facility] Hemoglobin (Bld) [Mass/Vol] 13.5 g/dL 12.0 - 16.0 g/dL [facility] IMMATURE GRANULOCYTES ABS AUTO 0.02 [facility] Immature granulocytes/100 WBC (Bld) 0.3 % 0.0 - 0.5 % [facility] LYMPHOCYTES ABSOLUTE AUTO 1.8 [facility] Lymphocytes/100 WBC (Bld) 23.0 % 20.5 - 60.0 % [facility] MCH (RBC) [Entitic mass] 30.6 pg 26.7 - 34.[address] [facility] MCHC (RBC) [Mass/Vol] 33.3 g/dL 29.9 - 35.2 g/dL [facility] MCV (RBC) [Entitic vol] 92.1 fL 81.0 - 99.[address] [facility] MONOCYTES ABSOLUTE AUTO 0.5 [facility] Monocytes/100 WBC (Bld) 6.6 % 1.7 - 12.0 % [facility] NEUTROPHILS ABSOLUTE AUTO 5.3 [facility] Neutrophils/100 WBC (Bld) 66.7 % 43.0 - 75.0 % [facility] Platelet mean volume (Bld) [Entitic vol] 9.8 fL 9.5 - 13.5 fL [facility] TBH EO # 0.2 [facility] TBH PLT 284 [facility] TB RBC 4.41 [facility] Healthcar e TB WBC 8.0 [facility] Healthcar e CL[facility]IS[facility] Health[facility] ALL CBC WITH AUTO DIFFon BASOPHILS ABSOLUTE AUTO 0.1 [facility] Basophils/100 WBC (Bld) 0.5 % 0.2 - 2.0 % [facility] Eosinophils/100 WBC (Bld) 2.8 % 0.9 - 7.0 % [facility] Erythrocyte distribution width (RBC) [Ratio] 12.0 % 11.0 - 15.0 % [facility] Hematocrit (Bld) [Volume fraction] 39.7 % 36.0 - 48.0 % [facility] Hem[facility] (Bld) [Mass/Vol] 13.4 g/dL 12.0 - 16.0 g/dL [facility] IMMATURE GRANULOCYTES ABS AUTO 0.03 [facility] Immature granulocytes/100 WBC (Bld) 0.3 % 0.0 - 0.5 % [facility] Interpretation and review of laboratory results Abnormal [facility] LYMPHOCYTES ABSOLUTE AUTO 2.9 [facility] Lymphocytes/100 WBC (Bld) 24.4 % 20.5 - 60.0 % [facility] MCH (RBC) [Entitic mass] 30.7 pg 26.7 - 34.[address] [facility] MCHC (RBC) [Mass/Vol] 33.8 g/dL 29.9 - 35.2 g/dL [facility] MCV (RBC) [Entitic vol] 91.1 fL 81.0 - 99.[address] [facility] MONOCYTES ABSOLUTE AUTO 0.6 [facility] Monocytes/100 [...] POCT EKGOrdered By: Sheyla Powell on 03-13-2024 [facility] No Panel InformationOrdered By: Pinky Singh on 11-24-2023 Quick Strep (POC) [facility] Cervical or vaginal smear or scraping studyon 11-19-2022 [facility] COVID/FLU/RSV RT-PCRon 10-11 SARS-CoV-2 (COVID-19) RNA PEACE+probe Ql (Unsp spec) Positive [facility] Other COVID/FLU/RSV RT-PCR Negative [facility] Other Vital Signs Date Time Vital Sign Value Performing Clinician Facility 05-17-2025 07:51-0400 Body height 172.7 cm Yordy Cruz MD Work Phone: [facility] 05-17-2025 07:51-0400 Body mass index (BMI) [Ratio] 42.96 kg/m2 Yordy Cruz MD Work Phone: [facility] 05-17-2025 07:51-0400 Body weight 128.14 kg Yordy Cruz MD Work Phone: [facility] 05-17-2025 07:51-0400 Diastolic blood pressure 84 mm[Hg] Yordy Cruz MD Work Phone: [facility] 05-17-2025 07:51-0400 Heart rate 87 /min Yordy Cruz MD Work Phone: [facility] 05-17-2025 07:51-0400 Systolic blood pressure 147 mm[Hg] Yordy Cruz MD Work Phone: [facility] 04-25-2025 11:30-0400 Body mass index (BMI) [Ratio] 42.88 kg/m2 Caesar Davie DO Work Phone: [facility] 04-25-2025 11:30-0400 Body weight 127.91 kg Caesar Davie DO Work Phone: [facility] 04-25-2025 11:30-0400 Diastolic blood pressure 82 mm[Hg] Caesar Davie DO Work Phone: [facility] 04-25-2025 11:30-0400 Systolic blood pressure 138 mm[Hg] Caesar Davie DO Work Phone: [facility] 04-11-2025 11:00-0400 Body mass index (BMI) [Ratio] 42.63 kg/m2 Caesar Davie DO Work Phone: [facility] 04-11-2025 11:00-0400 Body weight 127.19 kg Caesar Davie DO Work Phone: [facility] 04-11-2025 11:00-0400 Diastolic blood pressure 86 mm[Hg] Caesar Davie DO Work Phone: [facility] 04-11-2025 11:00-0400 Systolic blood pressure 140 mm[Hg] Caesar Davie DO Work Phone: [facility] 03-28-2025 11:42-0400 Body mass index (BMI) [Ratio] 42.29 kg/m2 Caesar Davie DO Work Phone: [facility] 03-28-2025 11:42-0400 Body weight 126.15 kg Caesar Davie DO Work Phone: [facility] 03-28-2025 11:42-0400 Diastolic blood pressure 80 mm[Hg] Caesar Davie DO Work Phone: [facility] 03-28-2025 11:42-0400 Systolic blood pressure 138 mm[Hg] Caesar Davie DO Work Phone: [facility] 03-01-2025 10:03-0400 Body mass index (BMI) [Ratio] 41.66 kg/m2 Davie Ob [facility] 03-01-2025 10:03-0400 Body weight 124.[address] [facility] 03-01-2025 10:03-0400 Diastolic blood pressure 76 mm[Hg] Davie [facility] 03-01-2025 10:03-0400 Systolic blood pressure 124 mm[Hg] Davie [facility] 01-03-2025 10:52-0400 Body height 172.7 cm Robbie Lopez MD Work Phone: [facility] 01-03-2025 10:52-0400 Body mass index (BMI) [Ratio] 40.84 kg/m2 Robbie Lopez MD Work Phone: [facility] 01-03-2025 10:52-0400 Body temperature 97.81 [degF] Robbie Lopez MD Work Phone: [facility] 01-03-2025 10:52-0400 Body weight 121.84 kg Robbie Lopez MD Work Phone: [facility] 01-03-2025 10:52-0400 Diastolic blood pressure 78 mm[Hg] Robbie Lopez MD Work Phone: [facility] 01-03-2025 10:52-0400 Heart rate 73 /min Robbie Lopez MD Work Phone: [facility] 01-03-2025 10:52-0400 Systolic blood pressure 132 mm[Hg] Robbie Lopez MD Work Phone: [facility] 12-18-2024 13:38-0400 Body mass index (BMI) [Ratio] 40.35 kg/m2 Caesar Davie DO Work Phone: [facility] 12-18-2024 13:38-0400 Body weight 120.39 kg Caesar Davie DO Work Phone: [facility] 12-18-2024 13:38-0400 Diastolic blood pressure 72 mm[Hg] Caesar Davie DO Work Phone: [facility] 12-18-2024 13:38-0400 Systolic blood pressure 118 mm[Hg] Caesar Davie DO Work Phone: [facility] 12-10-2024 14:36-0400 Body mass index (BMI) [Ratio] 40.75 kg/m2 Caesar Davie DO Work Phone: [facility] 12-10-2024 14:36-0400 Body weight 121.56 kg Caesar Davie DO Work Phone: [facility] 12-10-2024 14:36-0400 Diastolic blood pressure 78 mm[Hg] Caesar Davie DO Work Phone: [facility] 12-10-2024 14:36-0400 Systolic blood pressure 130 mm[Hg] Caesar Davie DO Work Phone: [facility] 11-12-2024 14:03-0400 Diastolic blood pressure 86 mm[Hg] Caesar Davie DO Work Phone: [facility] 11-12-2024 14:03-0400 Systolic blood pressure 120 mm[Hg] Caesar Davie DO Work Phone: [facility] 07-23-2024 13:12-0500 Body mass index (BMI) [Ratio] 40.01 kg/m2 Caesar Davie DO Work Phone: [facility] 07-23-2024 13:12-0500 Body weight 119.35 kg Caesar Davie DO Work Phone: [facility] 07-23-2024 13:12-0500 Diastolic blood pressure 78 mm[Hg] Caesar Davie DO Work Phone: [facility] 07-23-2024 13:12-0500 Systolic blood pressure 130 mm[Hg] Caesar Davie DO Work Phone: [facility] 06-11-2024 14:39-0400 Body height 172.7 cm Caesar Davie DO Work Phone: [facility] 06-11-2024 14:39-0400 Body mass index (BMI) [Ratio] 39.53 kg/m2 Caesar Davie DO Work Phone: [facility] 06-11-2024 14:39-0400 Body weight 117.94 kg Caesar Davie DO Work Phone: [facility] 06-11-2024 14:39-0400 Diastolic blood pressure 76 mm[Hg] Caesar Davie DO Work Phone: [facility] 06-11-2024 14:39-0400 Systolic blood pressure 128 mm[Hg] Caesar Davie DO Work Phone: [facility] 05-03-2024 11:39-0400 Body weight 118.84 kg Caesar Davie DO Work Phone: [facility] 05-03-2024 11:39-0400 Diastolic blood pressure 78 mm[Hg] Caesar Davie DO Work Phone: [facility] 05-03-2024 11:39-0400 Systolic blood pressure 130 mm[Hg] Caesar Davie DO Work Phone: [facility] 04-10-2024 09:36-0400 Body weight 120.57 kg Caesar Davie DO Work Phone: [facility] 04-10-2024 09:36-0400 Diastolic blood pressure 78 mm[Hg] Caesar Davie DO Work Phone: [facility] 04-10-2024 09:36-0400 Systolic blood pressure 130 mm[Hg] Caesar Davie DO Work Phone: [facility] 03-13-2024 10:50-0400 Body height 172.7 cm James Fraire MD Work Phone: [facility] 03-13-2024 10:50-0400 Body mass index (BMI) [Ratio] 40.66 kg/m2 James Fraire MD Work Phone: [facility] 03-13-2024 10:50-0400 Body weight 121.29 kg James Fraire MD Work Phone: [facility] 03-13-2024 10:50-0400 Diastolic blood pressure 94 mm[Hg] James Fraire MD Work Phone: [facility] 03-13-2024 10:50-0400 Heart rate 83 /min James Fraire MD Work Phone: [facility] 03-13-2024 10:50-0400 SaO2% (BldA) [Mass fraction] 98 % James Fraire MD Work Phone: [facility] 03-13-2024 10:50-0400 Systolic blood pressure 136 mm[Hg] James Fraire MD Work Phone: [facility] 11-24-2023 12:26-0400 Body height 172.72 cm [facility] 11-24-2023 12:26-0400 Body mass index (BMI) [Ratio] 42.6 kg/m2 [facility] 11-24-2023 12:26-0400 Body temperature 97.3 [degF] [facility] 11-24-2023 12:26-0400 Body weight 127.11 kg [facility] 11-24-2023 12:26-0400 Diastolic blood pressure 84 mm[Hg] [facility] 11-24-2023 12:26-0400 Heart rate 75 /min [facility] 11-24-2023 12:26-0400 Respiratory rate 18 /min [facility] 11-24-2023 12:26-0400 SaO2% (BldA) [Mass fraction] 98 % [facility] 11-24-2023 12:26-0400 Systolic blood pressure 130 mm[Hg] [facility] 10-11-2022 11:35-0500 Body height 172.72 cm Pinky Singh Other [facility] Other 10-11-2022 11:35-0500 Body mass index (BMI) [Ratio] 42.27 kg/m2 Pinky Singh Other [facility] Other 10-11-2022 11:35-0500 Body temperature 97.8 [degF] Pinky Singh Other [facility] Other 10-11-2022 11:35-0500 Body weight 126.1 kg Pinky Singh Other [facility] Other 10-11-2022 11:35-0500 Respiratory rate 18 /min Pinky Singh Other [facility] Other 10-11-2022 11:35-0500 SaO2% (BldA) [Mass fraction] 98 % Pinky Singh Other [facility] Other Encounters Encounter Date Encounter Type Care Provider Facility Start: 05-24-2025 End: 05-24-2025 Orders Only Bethany Lundy LPN [facility] Comment on above: Acute palmoplantar p ustular psoriasis (Primary Dx); Chronic hypertension affecting ; Severe obesity due to excess calories affecting , antepartum ([facility]); Hypertension affecting in second trimester Start: 05-23-2025 End: 05-23-2025 Bamboo flowsheet Rosie Qiu B[employer] CLEANING OPERATOR Work Phone: [facility] Start: 05-23-2025 End: 05-25-2025 Bamboo flowsheet Rosie Qiu BALLAST CLEANING OPERATOR Work Phone: [facility] Start: 05-23-2025 End: 05-25-2025 Clinisync Result Encounter Caesar Broderick DO Work Phone: [facility] External Department Unsolicited Start: 05-17-2025 End: 05-17-2025 Office consultation new/estab patient 60 min Clair Hare MD Work Phone: [facility] Comment on above: Chronic hypertension affecting (Primary Dx); Acute palmoplantar pustular psoriasis; Severe obesity due to excess calories affecting , antepartum ([facility]); 20 weeks gestation of Start: 05-17-2025 End: 05-17-2025 Orders Only Bethany Lundy LPN Maternal- Medicine at [facility] Comment on above: Acute palmoplantar p ustular psoriasis (Primary Dx); Chronic hypertension affecting ; Severe obesity due to excess calories affecting , antepartum ([facility]); Hypertension affecting in second trimester Start: 04-29-2025 End: 04-29-2025 Emergency department patient visit COUNTS INCLUDE 234 BEDS AT THE [facility] Start: 04-25-2025 End: 04-25-2025 Bamboo flowsheet Caesar Davie DO Work Phone: [facility] Start: 04-25-2025 End: 04-25-2025 Bamboo flowsheet Caesar Davie DO Work Phone: [facility] [place] [facility] Start: 04-25-2025 End: 04-25-2025 Office outpatient visit 15 minutes Caesar Davie DO Work Phone: [facility] Comment on above: Screening, , for anatomic survey ([facility]); Second trimester ([facility] 17 weeks gestation of ([facility]); Screen for STD (sexually transmitted disease); Need for maternal serum alpha-protein (MSAFP) screening ([facility]); induced hypertension, antepartum ([facility]); Vitamin D deficiency Start: 04-25-2025 End: 04-25-2025 ambulatory CAESAR DAVIE Not Available Start: 04-23-2025 End: 04-23-2025 Chart abstracting Yordy Cruz MD Work Phone: Maternal- Medicine at [facility] Start: 04-21-2025 End: 04-21-2025 Clinisync Result Encounter Caesar Davie DO Work Phone: [facility] External Department Unsolicited Start: 04-21-2025 End: 04-21-2025 Clinisync Result Encounter Caesar Davie DO Work Phone: [facility] External Department Unsolicited Start: 04-19-2025 End: 04-19-2025 Orders Only Joann Moise RN Maternal- Medicine at [facility] Comment on above: Hypertension affecti ng in second trimester (Primary Dx) Start: 04-17-2025 End: 04-17-2025 Clinisync Result Encounter Caesar Davie DO Work Phone: [facility] External Department Unsolicited Start: 04-17-2025 End: 04-17-2025 Clinisync Result Encounter Caesar Davie DO Work Phone: [facility] External Department Unsolicited Start: 04-11-2025 End: 04-11-2025 Bamboo flowsheet Caesar Davie DO Work Phone: [facility] Start: 04-11-2025 End: 04-11-2025 Bamboo flowsheet Caesar Davie DO Work Phone: [facility] Start: 04-11-2025 End: 04-11-2025 Office outpatient visit 15 minutes Caesar Davie DO Work Phone: [facility] Comment on above: 15 weeks gestation [...] flowsheet Caesar Davie DO Work Phone: [facility] Start: 03-28-2025 End: 03-28-2025 Bamboo flowsheet Caesar Davie DO Work Phone: [facility] Start: 03-28-2025 End: 03-28-2025 Office outpatient visit 15 minutes Caesar Davie DO Work Phone: [facility] Comment on above: 13 weeks gestation o f ([facility]); Second trimester ([facility]); Acute nonintractable headache, unspecified headache type Start: [...] encounter status Robbie Lopez MD Work Phone: [facility] Work Phone: Start: 01-03-2025 End: 01-03-2025 ambulatory ROBBIE Trent [facility] Start: 01-03-2025 End: 01-03-2025 Encounter for preprocedural laboratory examination ROBBIE Trent [facility] Start: 12-18-2024 End: 12-26-2024 External Result Encounter Caesar Davie DO Work Phone: [facility] External Department Unsolicited Start: 12-18-2024 End: 12-26-2024 External Result Encounter Caesar Davie DO Work Phone: [facility] External Department Unsolicited Start: 12-18-2024 End: 12-18-2024 Patient encounter procedure Caesar Davie DO Work Phone: [facility] Comment on above: Skin mole Start: 12-18-2024 End: 12-18-2024 ambulatory Caesar Davie [facility] Work Phone: Start: 12-18-2024 End: 12-18-2024 Departed Referred Caesar Davie DO Work Phone: [facility] Start: 12-17-2024 End: 12-18-2024 Clinisync Result [...] 11-03-2024 End: 11-04-2024 Emergency department patient visit [facility] Start: 10-18-2024 End: 10-19-2024 Clinisync Result Encounter [...] original px Caesar Davie DO Work Phone: [facility] Comment on above: Postoperative visit; S/P laparoscopic procedure Start: 06-11-2024 End: 06-11-2024 Bamboo flowsheet Caesar Davie DO Work Phone: [facility] Start: 06-11-2024 End: 06-11-2024 Bamboo flowsheet Caesar Davie DO Work Phone: [facility] Start: 06-11-2024 End: 06-11-2024 ambulatory CAESAR DAVIE Not Available Start: 06-01-2024 End: 06-01-2024 Clinisync Result Encounter Caesar Davie DO Work Phone: [facility] External Department Unsolicited Start: 06-01-2024 End: 06-01-2024 Clinisync Result Encounter Caesar Davie DO Work Phone: [facility] External Department Unsolicited Start: 05-03-2024 End: 05-03-2024 Office outpatient visit 15 minutes Caesar Davie DO Work Phone: [facility] Comment on above: Pre-op examination; Pelvic pain in female; Fallopian tube disorder Start: 05-03-2024 End: 05-03-2024 Preprocedural examination done Caesar Davie DO Work Phone: [facility] Start: 05-03-2024 End: 05-03-2024 ambulatory CAESAR DAVIE Not Available Start: 04-24-2024 End: 04-24-2024 Clinisync Result Encounter Caesar Davie DO Work Phone: [facility] External Department Unsolicited Start: 04-24-2024 End: [...] 03-12-2024 End: 03-12-2024 Telephone encounter Sheyla Powell [facility] Start: 02-22-2024 End: 02-22-2024 Chart abstracting Scanning Provider External [facility] Start: 11-24-2023 End: 11-24-2023 ambulatory [facility] Work Phone: Start: 11-24-2023 End: 11-24-2023 Patient encounter procedure [facility] Work Phone: Start: 10-11-2022 End: 10-11-2022 ambulatory Pinky Singh Other [facility] Other Start: 10-11-2022 Office outpatient ne w 20 minutes Pinky Singh [facility] Procedures Date Procedure Procedure Detail Performing Clinician Start: 05-23-2025 AFP, SERUM, OPEN SPI NA BIFIDA Caesar Davie DO Work Phone: Start: 04-25-2025 Urnls dip stick/tabl et rgnt [...] DO Work Phone: Start: 03-20-2025 Antibody screen Yordy thomas MD Work Phone: Start: 03-20-2025 Drug [...] 04-24-2024 ALL CBC WITH AUTO DIFF Caesar Davie DO Work Phone: Start: 03-13-2024 Ecg routine ecg w/le ast 12 lds w/i&r James Fraire MD Work Phone: Start: 11-24-2023 Quick Strep (POC) Start: 11-23-2022 Microscopic observat ion [Identifier] in Cervix by Cyto stain Scanning External Start: 11-19-2022 Microscopic observat ion [Identifier] in Cervix by Cyto stain Caesar Davie DO Work Phone: Start: 11-19-2022 Cytp cerv/vag auto t hin layer prep mnl screen Bethany Raymundo STONE CRUSHER OPERATOR Work Phone: Plan of Treatment Date Care Activity Detail Author Start: 2042 Zoster Vaccines (1 of 2) Zoster Vaccines (1 of 2) [facility] Start: 12-11-2027 Screening for malignant neoplasm of cervix [facility] Start: 11-24-2027 Screening for malignant neoplasm of cervix [facility] Start: 05-17-2026 Adult BMI Screening Adult BMI Screening [facility] Start: 05-17-2026 Tobacco Screening Tobacco Screening [facility] Start: 12-16-2025 End: 12-16-2025 Patient encounter procedure [facility] Start: 11-23-2025 Screening for malignant neoplasm of cervix Pap Smear [facility] Start: 11-19-2025 Screening for malignant neoplasm of cervix Pap Smear [facility] Start: 11-03-2025 Tobacco Screening Tobacco Screening [facility] Start: 06-24-2025 End: 06-24-2025 Patient encounter procedure 06/24/2025 1:50 PM EST Routine [facility] [place] [facility] [address] [phone] Caesar Broderick DO [address] [place], [place] [id number] [facility] [place] [facility] Start: 06-18-2025 End: 06-18-2025 Telemedicine consultation with patient 06/18/2025 2:00 PM EDT Telemedicine Maternal- Medicine at [facility] [address] [place] [address] Yordy Cruz MD [address] [facility] 1st [place] [address] Maternal- Medicine at [facility] Start: 06-18-2025 End: 06-18-2025 Patient encounter procedure 06/18/2025 8:00 AM EDT Appointment [facility] [address] [place] [address] [facility] Start: 05-30-2025 End: 05-30-2025 Patient encounter procedure 05/30/2025 3:20 PM EDT Routine [facility] [place] [facility] [address] [place] [phone] Rosie Qiu, BALLAST CLEANING OPERATOR [address] [place] [phone] [facility] Start: 05-25-2025 End: 05-25-2025 Alpha fetoprotein, maternal Alpha fetoprotein, maternal Lab Routine Need for maternal serum alpha-protein (MSAFP) screening ([facility]) Expected: 05/25/2025 (Approximate), [facility] Comment on above: Expected: 05/25/2025 (Approximate), Expi res: 05/25/2025 Start: 05-23-2025 End: 05-23-2025 Patient encounter procedure 05/23/2025 2:30 PM EDT Routine [facility] [address] [place] [address] Rosie Qiu, BALLAST CLEANING OPERATOR [address] [place] [address] [facility] Start: 05-20-2025 End: 04-19-2026 US MFM with or without consult US MFM with or without consult Imaging Routine Hypertension affecting in second trimester Expected: 05/20/2025 (Approximate), Expires: 04/19/2026 [facility] Work Phone: Comment on above: Expected: 05/20/2025 (Approximate), Expi res: 04/19/2026 Start: 05-17-2025 End: 05-17-2026 US MFM with or without consult US MFM with or without consult Imaging Routine 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 Severe obesity due to excess calories affecting , antepartum ([facility]) Hypertension affecting in second trimester Expected: 05/17/2025, Expires: 05/17/2026 [facility] Work Phone: Comment on above: Expected: 05/17/2025, Expires: Start: 05-17-2025 End: 05-17-2025 Patient encounter procedure [facility] Start: 04-25-2025 End: 04-25-2025 Patient encounter procedure [facility] Alice[facility] Comment on above: Arrived Start: 04-22-[address] [facility] Start: 04-11-2025 End: 04-11-2026 Alanine aminotransferase [Enzymatic activity/volume] in Serum or Plasma ALT Lab Routine Gestational hypertension, antepartum ([facility]) induced hypertension, antepartum ([facility]) Expected: 04/11/2025 (Approximate), Expires: 04/11/2026 [facility] Comment on above: Expected: 04/11/2025 (Approximate), Expi res: 04/11/2026 Start: 04-11-2025 End: 04-11-2026 Aspartate aminotransferase [Enzymatic activity/volume] in Serum or Plasma AST Lab Routine Gestational hypertension, antepartum ([facility]) induced hypertension, antepartum ([facility]) Expected: 04/11/2025 (Approximate), Expires: 04/11/2026 [facility] Comment on above: Expected: 04/11/2025 (Approximate), Expi res: 04/11/2026 Start: 04-11-2025 End: 04-11-2026 CBC W Auto Differential panel - Blood CBC and differential Lab Routine Gestational hypertension, antepartum ([facility]) induced hypertension, antepartum ([facility]) Expected: 04/11/2025 (Approximate), Expires: 04/11/2026 [facility] Comment on above: Expected: 04/11/2025 (Approximate), Expi res: 04/11/2026 Start: 04-11-2025 End: 04-11-2026 Creatinine [Mass/volume] in Serum or Plasma Creatinine Lab Routine Gestational hypertension, antepartum ([facility]) induced hypertension, antepartum ([facility]) Expected: 04/11/2025 (Approximate), Expires: 04/11/2026 [facility] Work Phone: Comment on above: Expected: 04/11/2025 (Approximate), Expi res: 04/11/2026 Start: 04-11-2025 End: 04-11-2026 Lactate dehydrogenase [Enzymatic activity/volume] in Serum or Plasma by Lactate to pyruvate reaction Lactate dehydrogenase Lab Routine Gestational hypertension, antepartum ([facility]) induced hypertension, antepartum ([facility]) Expected: 04/11/2025, Expires: 04/11/2026 [facility] Comment on above: Expected: 04/11/2025, Expires: Start: 04-11-2025 End: 04-11-2026 Protein, urine, 24 hour Protein, urine, 24 hour Lab Routine Gestational hypertension, antepartum ([facility]) induced hypertension, antepartum ([facility]CC) Expected: 04/11/2025 (Approximate), Expires: 04/11/2026 [facility] Comment on above: Expected: 04/11/2025 (Approximate), Expi res: 04/11/2026 Start: 04-11-2025 End: 04-11-2026 Pt and ptt Pt and ptt Lab Routine Gestational hypertension, antepartum ([facility]) induced hypertension, antepartum ([facility]CC) Expected: 04/11/2025, Expires: 04/11/2026 [facility] Comment on above: Expected: 04/11/2025, Expires: Start: 04-11-2025 End: 04-11-2026 Urate [Mass/volume] in Serum or Plasma Uric acid Lab Routine Gestational hypertension, antepartum ([facility]-HCC) induced hypertension, antepartum ([facility]CC) Expected: 04/11/2025 (Approximate), Expires: 04/11/2026 [facility] Comment on above: Expected: 04/11/2025 (Approximate), Expi res: 04/11/2026 Start: 04-11-2025 End: 04-11-2026 Urea nitrogen [Mass/volume] in Serum or Plasma BUN Lab Routine Gestational hypertension, antepartum ([facility]-HCC) induced hypertension, antepartum ([facility]-HCC) Expected: 04/11/2025, Expires: 04/11/2026 [facility] Comment on above: Expected: 04/11/2025, Expires: Start: 04-11-2025 End: 04-11-2025 Patient encounter procedure [facility] Latoya mitchell [facility] Comment on above: Arrived Start: 03-28-2025 End: 03-28-2025 Patient encounter procedure [facility] Comment on above: Arrived Start: 03-13-2025 Adult BMI Screening Adult BMI Screening [facility] Start: 03-13-2025 Tobacco Screening Tobacco Screening [facility] Start: 03-01-2025 End: 03-01-2026 ABO/Rh ABO/Rh Lab Routine Missed menses , unspecified gestational age ([facility]) Expected: 03/01/2025 (Approximate), Expires: 03/01/2026 [facility] Comment on above: Expected: 03/01/2025 (Approximate), Expi res: 03/01/2026 Start: 03-01-2025 End: 03-01-2026 Blood type and Indirect antibody screen panel - Blood Type and screen Lab Routine Missed menses , unspecified gestational age ([facility]) Expected: 03/01/2025 (Approximate), Expires: 03/01/2026 [facility] Work Phone: Comment on above: Expected: 03/01/2025 (Approximate), Expi res: 03/01/2026 Start: 03-01-2025 End: 03-01-2026 Drugs of abuse panel - Urine by Screen method Rapid drug screen, urine Lab Routine , unspecified gestational age ([facility]) Encounter for supervision of normal first in first trimester ([facility]) Expected: 03/01/2025 (Approximate), Expires: 03/01/2026 [facility] Comment on above: Expected: 03/01/2025 (Approximate), Expi res: 03/01/2026 Start: 02-03-2025 End: 04-05-2025 Choriogonadotropin ( test) [Presence] in Urine POCT , urine manually resulted Point of Care Testing Routine Encounter for preprocedural laboratory examination Expected: 02/03/2025 (Approximate), Expires: 04/05/2025 [facility] Work Phone: Comment on above: Expected: 02/03/2025 (Approximate), Expi res: 04/05/2025 Start: 02-03-2025 End: 01-03-2026 Sonohysterogram Sonohysterogram Procedures Routine Abnormal uterine bleeding Expected: 02/03/2025 (Approximate), Expires: 01/03/2026 [facility] Service Area Work Phone: Comment on above: Expected: 02/03/2025 (Approximate), Expi res: 01/03/2026 Start: 02-03-2025 End: 01-03-2026 US.doppler Uterus and Fallopian tubes W saline IU US sonohysterogram Imaging Routine Abnormal uterine bleeding Expected: 02/03/2025 (Approximate), Expires: 01/03/2026 [facility] Work Phone: Comment on above: Expected: 02/03/2025 (Approximate), Expi res: 01/03/2026 Start: 12-18-2024 End: 12-18-2024 Patient encounter procedure 12/18/2024 1:30 PM EDT Procedure Visit [facility] [address] [place] [phone] Caesar Broderick, DO [address] [place] [address] [facility] Start: 12-18-2024 [facility] Start: 12-10-2024 End: 12-10-2024 Patient encounter procedure [facility] Comment on above: Arrived Start: 11-12-2024 End: 11-12-2024 Patient encounter procedure [facility] Comment on above: Arrived Start: 07-23-2024 End: 07-23-2024 Patient encounter procedure 07/23/2024 1:00 PM EST Office Visit [facility] [address] [place] [phone] Caesar Broderick, DO [address] [place] [address] [facility] Start: 06-11-2024 End: 06-11-2024 Patient encounter procedure 06/11/2024 2:20 PM EDT Office Visit [facility] [address] [place] [phone] Caesar Broderick, DO [address] [place] [address] Arrived [facility] Comment on above: Arrived Start: 06-01-2024 End: 06-01-2024 Patient encounter procedure 06/01/2024 8:30 AM EDT Procedure Visit [facility] EXT DEP Caesar Broderick, DO [address] [facility] [place] [address] [facility] Start: 05-03-2024 End: 05-03-2024 Patient encounter procedure 05/03/2024 11:40 AM EDT Consult [facility] [address] [place] [phone] Caesar Broderick, DO [address] [place] [address] [facility] Start: 04-22-2024 COVID-19 Vaccine ( season) COVID-19 Vaccine ( season) [facility] Start: 04-22-2024 Influenza vaccination [facility] Start: 04-10-2024 End: 04-10-2025 Antimullerian hormone (AMH) Antimullerian hormone (AMH) Lab Routine PCOS (polycystic ovarian syndrome) Expected: 04/10/2024 (Approximate), Expires: 04/10/2025 [facility] Comment on above: Expected: 04/10/2024 (Approximate), Expi res: 04/10/2025 Start: 04-10-2024 End: 04-10-2025 DHEA DHEA Lab Routine PCOS (polycystic ovarian syndrome) Expected: 04/10/2024 (Approximate), Expires: 04/10/2025 [facility] Comment on above: Expected: 04/10/2024 [...] EDT Office Visit [facility] [address] [facility] [address] [place] [address] Davie CaesarDO [address] [place] [address] Arrived [facility] Comment on above: Arrived Start: 03-13-2024 End: 03-13-2024 Patient encounter procedure 03/13/2024 11:00 AM EDT Office Visit [facility] [address] [place] [address] James Fraire MD [address] [place] [address] [facility] Start: 01-21-2024 Adult BMI Screening Adult BMI Screening [facility] Start: 01-21-2024 Tobacco Screening Tobacco Screening [facility] Start: 2014 DTaP/Tdap/Td Vaccines (1 - Tdap) DTaP/Tdap/Td Vaccines (1 - Tdap) [facility] Start: 2013 Screening for malignant neoplasm of cervix HPV/Cotest [facility] Start: 2011 DTaP,Tdap and Td Vaccines (1 - Tdap) DTaP,Tdap and Td Vaccines (1 - Tdap) [facility] Start: 2011 Hepatitis B Vaccines (1 of 3 - 19+ 3-dose series) Hepatitis B Vaccines (1 of 3 - 19+ 3-dose series) [facility] Start: 2010 Adult BMI Follow Up Plan Adult BMI Follow Up Plan [facility] Start: 2010 Hepatitis C screening Hepatitis C Screening [facility] Start: 2005 Varicella vaccination Varicella Vaccines (1 of 2 - 13+ 2-dose series) [facility] Start: 2004 Depression Screening Depression Screening [facility] Start: 1993 MMR Vaccines (1 of 1 - Standard series) MMR Vaccines (1 of 1 - Standard series) [facility] Start: 1992 HIV screening HIV Screening [facility] Start: 1992 Lipid panel Lipid Panel [facility] Start: 1992 Yearly Adult Physical Yearly Adult Physical [facility] Bacteria identified in Urine by Culture Urine culture Microbiology Routine Missed menses Ordered: 03/01/2025 [facility] Comment on above: Ordered: 03/01/2025 CBC W Auto Different ial panel - Blood CBC and differential Lab Routine PCOS (polycystic ovarian syndrome) Ordered: 04/10/2024 [facility] Comment on above: Ordered: 04/10/2024 CBC W Auto Different ial panel - Blood CBC and differential Lab Routine Missed menses , unspecified gestational age ([facility]) Ordered: 03/01/2025 [facility] Comment on above: Ordered: 03/01/2025 CHLAMYDIA TRACHOMATI S (GENITO/STI) CHLAMYDIA TRACHOMATIS (GENITO/STI) Lab Routine Screen for STD (sexually transmitted disease) Ordered: 04/25/2025 [facility] Comment on above: Ordered: 04/25/2025 End: 05-17-2026 Creatinine, urine, 24 hour Creatinine, urine, 24 hour Lab Routine Chronic hypertension affecting 20 weeks gestation of 1 Occurrences starting 05/17/2025 until 05/17/2026 [facility] Comment on above: 1 Occurrences starting 05/17/2025 until 05/17/2026 Cytology Cervical or vaginal smear or scraping study Pap Smear Pathology and Cytology Routine Well woman exam with routine gynecological exam Ordered: 12/10/2024 [facility] Work Phone: Comment on above: Ordered: 12/10/2024 DHEA-sulfate DHEA-sulfate Lab Routine PCOS (polycystic ovarian syndrome) Ordered: 04/10/2024 [facility] Comment on above: Ordered: 04/10/2024 Follicle stimulating hormone Follicle stimulating hormone Lab Routine PCOS (polycystic ovarian syndrome) Ordered: 04/10/2024 [facility] Comment on above: Ordered: 04/10/2024 hCG, quantitative, hCG, quantitative, Lab Routine PCOS (polycystic ovarian syndrome) Ordered: 04/10/2024 [facility] Work Phone: Comment on above: Ordered: 04/10/2024 Hemoglobin A1c/Hemoglobin.total in Blood Hemoglobin A1c Lab Routine Pelvic pain in female Abnormal uterine bleeding (AUB) Ordered: 04/10/2024 [facility] Comment on above: Ordered: 04/10/2024 Hemoglobin A1c/Hemoglobin.total in Blood Hemoglobin A1c Lab Routine Missed menses , unspecified gestational age ([facility]) Ordered: 03/01/2025 [facility] Comment on above: Ordered: 03/01/2025 Hepatitis B virus matt rface Ag [Presence] in Serum or Plasma by Immunoassay Hepatitis B surface antigen Lab Routine Missed menses , unspecified gestational age ([facility]) Ordered: 03/01/2025 [facility] Comment on above: Ordered: 03/01/2025 Hepatitis C virus Ab [Presence] in Serum or Plasma by Immunoassay Hepatitis C antibody Lab Routine Missed menses , unspecified gestational age ([facility]) Ordered: 03/01/2025 [facility] Comment on above: Ordered: 03/01/2025 HIV-1/HIV-2 antigen/antibody combination immunoassay HIV-1 and HIV-2 antibodies Lab Routine Missed menses , unspecified gestational age ([facility]) Ordered: 03/01/2025 [facility] Comment on above: Ordered: 03/01/2025 Human papilloma viru s DNA [Presence] in Unspecified specimen by Probe with amplification HPV DNA probe, amplified Microbiology Routine Well woman exam with routine gynecological exam Ordered: 12/10/2024 [facility] Comment on above: Ordered: 12/10/2024 Luteinizing hormone Luteinizing hormone Lab Routine PCOS (polycystic ovarian syndrome) Ordered: 04/10/2024 [facility] Comment on above: Ordered: 04/10/2024 [...] weeks gestation of 05/17/2025 9:54 AM EDT [facility] Neisseria gonorrhoea e DNA [Presence] in Unspecified specimen by PEACE with probe detection Neisseria gonorrhea DNA probe, direct Lab Routine Screen for STD (sexually transmitted disease) Ordered: 04/25/2025 [facility] Comment on above: Ordered: 04/25/2025 End: 05-17-2026 Protein, urine, 24 hour Protein, urine, 24 hour Lab Routine Chronic hypertension affecting 20 weeks gestation of 1 Occurrences starting 05/17/2025 until 05/17/2026 [facility] Comment on above: 1 Occurrences starting 05/17/2025 until 05/17/2026 Reagin Ab [Presence] in Serum by RPR RPR Lab Routine Missed menses , unspecified gestational age ([facility]) Ordered: 03/01/2025 [facility] Comment on above: Ordered: 03/01/2025 Rubella antibody, IgG Rubella an tibody, IgG Lab Routine Missed menses , unspecified gestational age ([facility]) Ordered: 03/01/2025 [facility] Comment on above: Ordered: 03/01/2025 SURESWAB(R) ADVANCED VAGINITIS PLUS, TMA SURESWAB(R) ADVANCED VAGINITIS PLUS, TMA Pathology and Cytology Routine Screen for STD (sexually transmitted disease) Ordered: 04/25/2025 [facility] Work Phone: Comment on above: Ordered: 04/25/2025 Thyrotropin [Units/v olume] in Serum or Plasma TSH Lab Routine PCOS (polycystic ovarian syndrome) Ordered: 04/10/2024 [facility] Comment on above: Ordered: 04/10/2024 Thyroxine (T4) free [Mass/volume] in Serum or Plasma T4, free Lab Routine PCOS (polycystic ovarian syndrome) Ordered: 04/10/2024 [facility] Comment on above: Ordered: 04/10/2024 Payers Date Payer Category Payer Self-pay 2022 Medicaid [id number] 2022 Medicaid [id number] 2. [id number] 1992 Unknown [id number] 2.16.8 40.1.534389.3.579.2.1258 1992 Unknown [id number] 2.16.8 40.1.407587.3.579.2.1258 1992 Unknown [id number] 2.16.8 40.1.636288.3.579.2.1258 1992 Unknown [id number] 2.16.8 40.1.351641.3.579.2.1258 1992 Unknown [id number] 2.16.8 40.1.454087.3.579.2.1258 1992 Unknown [id number] 2.16.84 0.1.177917.3.579.2.1258 1992 Unknown [id number] 2.16.84 0.1.388510.3.579.2.1258 1992 Unknown [id number] 2.16.84 0.1.872059.3.579.2.1258 1992 Unknown [id number] 2.16.84 0.1.238397.3.579.2.1258 1992 Unknown [id number] 2.16.84 0.1.771436.3.579.2.1258 1992 Unknown [id number] 2.16.84 0.1.865848.3.579.2.1258 1992 Unknown [id number] 2. 840.1.922068.3.579.2.1285 1992 Unknown [id number] 2.. 840.1.448620.3.579.2.1285 1992 Unknown [id number] 2.16 840.1.783106.3.579.2.1285 1992 Unknown [id number] 2.16. 840.1.055816.3.579.2.1285 1992 Unknown [id number] 2.16. 840.1.635036.3.579.2.128 Unknown [id number] 2.16.8 40.1.279961.3.579.2.531 Social History Date Type Detail Facility Start: 02-22-2024 End: 05-17-2025 Sex Assigned At [facility] Other Start: 1990 Sex Assigned At Female F [facility] Tobacco smoking status KSIS Tobacco smoking consumption unknown [facility] Start: 1990 Sex assigned at Not on file P [place] [facility] Start: 10-09-2022 End: 01-03-2025 Tobacco smoking status [facility] Never smoked tobacco [facility] Start: 10-09-2022 End: 01-03-2025 Tobacco use and exposure Smokeless tobacco non-user [facility] Start: 02-22-2024 End: 05-17-2025 Alcoholic beverage intake Ex-drinker (finding) [facility] Start: 02-22-2024 End: 05-17-2025 History of [address] function [facility] Within the past 12 months we worried whether our food would run out before we got money to buy more. Never [facility] 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 No Recent ER visits or hospitalizations? Yes, for slicing thumb on mandolin Bring blood sugar log or meter with you today? (Please bring them with you for every visit at [facility]) N/A Flu vaccine (Jun-October)? N/A Any [...] previously recommended threshold of 160/110. Reference: PMID: 72347954, 2021. Blood pressures do increase as progresses [...] preeclampsia prevention as is recommended by the [place] [employer] Committee Opinion No. 743. [...] patient is in complete care of her poundmaster. Patient does have ultrasound and office visit scheduled with us. Thank you for allowing me to participate in the care of Chayo Ramires. If there any questions please do not hesitate to contact us. Yordy Cruz MD Maternal- Medicine [facility] [address] [place] [address] This document was created with [employer] technology. Though I make every effort to review the dictation as it is transcribed, on occasion the spoken word can be misinterpreted by the technology leading to inappropriate words, phrases, or sentences. This note is addressed to the requesting provider as a consultation for clinical guidance. Specific medical abbreviations are occasionally used and those are generally approved by the [place]?Board of?Obstetrics and?Gynecology?as well as?Rama s abbreviations. The above plan of care was based solely on the diagnoses for which a consultation was requested. ?More frequent testing may be indicated based on her other medical/obstetrical conditions. The management of other or medical conditions is beyond the scope of requested consultation and will continue to be followed by the primary poundmaster or primary care provider. Note to patient: The Cures Act makes medical notes like these [...] Blood drawn for cell-free DNA testing per [facility] phlebotomy. Patient tolerated well. documented in this encounter [facility] 04-25-2025 History of Present illness Narrative Reason [...] (polycystic ovarian syndrome) 07/30/2024 induced hypertension, antepartum ([facility]) 04/25/2025 Resolved Ambulatory Problems Diagnosis Date Noted [...] nursing note reviewed. Exam conducted with a pin drafting machine tender present. Vitals: Estimated body mass index is 42.88 kg/m as calculated from the following: Height as of 06/11/24: 5' 8 . Weight as of this encounter: 282 lb. BP: 138/82 Patient's last menstrual period was 12/26/2024. ASSESSMENT & PLAN ICD-10-CM 1. Screening, , for anatomic survey ([facility]) Z36.89 CANCELED: US OB 14+ weeks anatomy scan 2. Second trimester ([facility]) Z34.92 POCT urinalysis dipstick manually resulted 3. 17 weeks gestation of ([facility]) Z3A.17 4. Screen for STD (sexually transmitted disease) Z11.3 SURESWAB(R) ADVANCED VAGINITIS PLUS, TMA CHLAMYDIA TRACHOMATIS (GENITO/STI) Neisseria gonorrhea DNA probe, direct 5. Need for maternal serum alpha-protein (MSAFP) screening ([facility]) Z36.1 Alpha fetoprotein, maternal Alpha fetoprotein, maternal 6. induced hypertension, antepartum ([facility]) O13.9 7. Vitamin D deficiency E55.9 Return [...] Caesar Broderick DO documented in this encounter [facility] 04-11-2025 History of Present illness [...] nursing note reviewed. Exam conducted with a pin drafting machine tender present. Vitals: Estimated body mass index is 42.63 kg/m as calculated from the following: Height as of 06/11/24: 5' 8 . Weight as of this encounter: 280 lb 6.4 oz. BP: 140/86 Patient's last menstrual period was 12/26/2024. ASSESSMENT & PLAN ICD-10-CM 1. 15 weeks gestation of ([facility]) Z3A.15 POCT urinalysis dipstick manually resulted 2. Second trimester ([facility]) Z34.92 POCT urinalysis dipstick manually resulted 3. Acute nonintractable headache, unspecified headache type R51.9 4. BP check Z01.30 Patient presents today for a routine obstetrics appointment. Patient is currently 15w1d with a Estimated Date of Delivery: 10/02/25. Patient is having persistent elevated HTN. Discussed patient being referred to [facility] for management and recommendations for Gestational HTN. Patient is agreeable with referral. Patient to be started on Labetalol 200mg BID. Patient given labs and 24 hour urine to have obtained for baseline testing. Patient aware that once lab results are obtained then referral will be completed, so then all results can be sent to [facility] at onetime. Patient to return to clinic in 4 weeks for routine OB appointment. Patient to reach out to office with any concerns/questions. Documented by Karoline Casillas LPN on behalf of: Caesar Broderick DO documented in this encounter [facility] 03-28-2025 History of Present illness [...] nursing note reviewed. Exam conducted with a pin drafting machine tender present. Vitals: Estimated body mass index is 42.29 kg/m as calculated from the following: Height as of 06/11/24: 5' 8 . Weight as of this encounter: 278 lb 1.9 oz. BP: 138/80 Patient's last menstrual period was 12/26/2024. ASSESSMENT & PLAN ICD-10-CM 1. 13 weeks gestation of ([facility]) Z3A.13 POCT urinalysis dipstick manually resulted 2. Second trimester ([facility]) Z34.92 POCT urinalysis dipstick manually resulted magnesium [...] or undercooked meat, and stay away from [facility]. Patient has been consulted regarding any [...] Caesar Broderick DO documented in this encounter [facility] 03-01-2025 History of Present illness [...] dipstick manually resulted , unspecified gestational age ([facility]) - Type and screen; Future - ABO/Rh; Future - CBC and differential - Hemoglobin A1c - RPR - Rubella antibody, IgG - Hepatitis B surface antigen - Hepatitis C antibody - HIV-1 and HIV-2 antibodies - Rapid drug screen, urine; Future Encounter for supervision of normal first in first trimester ([facility]) - Rapid drug screen, urine; Future 9 weeks gestation of ([facility]) Nurse Note: Pt uncertain of doing the [place] Billion to one. Advised pt if she does to make sure both labs and [place] is done at the same time. PVU. Pt did state she had a Vit. D deficiency and has a h/o high blood pressure with G1. Kaalni Gigwalk advised patient showed in dating [place] today [...] or undercooked meat, and stay away from [facility]. Patient has also been advised to [...] Melanie Almaraz MA documented in this encounter 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 Tadalafil - 10mg as needed Injuries: No STD: No Please select all that are applicable: SA: Yes SA Results: Yes -Done at [facility] 2023- reports was told normal, no report [...] history on file. documented in this encounter [facility] Work Phone: 01-03-2025 Instructions Robbie Lopez [...] 01/03/2025 11:05 AM documented in this encounter [facility] Work Phone: 12-18-2024 History of Present [...] nursing note reviewed. Exam conducted with a pin drafting machine tender present. Vitals: Estimated body mass index is [...] after allowing sufficient time to take affect. pick pack worker and scissors used to remove affected area. Placed in formalin and sent to pathology. Post-procedure instructions given. Follow Up: as needed Documented by Kita Griggs LPN on behalf of: Caesar Broderick DO documented in this encounter [facility] 12-10-2024 History of Present illness [...] nursing note reviewed. Exam conducted with a pin drafting machine tender present. Vitals: Estimated body mass index is [...] Caesar Broderick DO documented in this encounter [facility] 11-12-2024 History of Present illness [...] Caesar Broderick DO documented in this encounter [facility] 07-23-2024 History of Present illness [...] nursing note reviewed. Exam conducted with a pin drafting machine tender present. Vitals: Estimated body mass index is [...] Caesar Broderick DO documented in this encounter [facility] 06-11-2024 History of Present illness [...] nursing note reviewed. Exam conducted with a pin drafting machine tender present. Vitals: Estimated body mass index is [...] Caesar Broderick DO documented in this encounter [facility] 05-03-2024 History of Present illness Narrative Reason for Appointment: Patient ID: Chayo Ramires is a 34 y.o. female who presents for Pre-op Visit Patient presents today for Pre Op appointment. Patient is scheduled to undergo Diagnostic Laparoscopy, possible FLAKITO, possible FOE, possible BSO, possible Chromopertubation on 06/01/[address] Broderick at [facility]. MEDICATIONS Current Outpatient Medications Medication Instructions [...] nursing note reviewed. Exam conducted with a pin drafting machine tender present. Vitals: There is no height or [...] reviewed, and patient is to proceed to [facility] OR. Follow Up: Patient is to follow up between 1-2 weeks post operative to assess proper healing and recovery from procedure. Documented by Karoline Casillas LPN on behalf of: Caesar Broderick DO documented in this encounter [facility] 04-10-2024 History of Present illness [...] nursing note reviewed. Exam conducted with a pin drafting machine tender present. Vitals: There is no height or [...] Caesar Broderick DO documented in this encounter 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 PCP: [facility] Jazmín Referring Physician: JAYLAN Ward [address] [place] [address] documented in this encounter [facility] 03-12-2024 Miscellaneous Notes Left message for patient to remind them to bring their most current medication list with them to their appointment. documented in this encounter [facility] 03-12-2024 Telephone encounter Note Left message for patient to remind them to bring their most current medication list with them to their appointment. [facility] 10-11-2022 Evaluation note Encounter Date Diagnosis [...] the onset of your symptoms of COVID Spireon Other Chief complaint+Reason for visit Narrative* Chief Complaint sinus pressure, coug h Reason for Visit Contact with and (matt spected) exposure to covid-19 Sore throat Sinusitis [facility] Work Phone: Evaluation note* Diagnosis Onset Date Resolution Status Contact with and (suspected) exposure to covid-19 acute Sore throat acute Sinusitis noneactive [facility] Work Phone: Evaluation note* Diagnosis Postoperative visit S/P laparoscopic procedure Other postprocedural status documented in this encounter [facility] HealthcareEvaluation note* Diagnosis PCOS (polycystic ovarian syndrome) Polycystic ovaries Encounter for fertility planning documented in this encounter [facility] HealthcareEvaluation note* Diagnosis Pre-op examination Pelvic pain in female Unspecified symptom associated with female genital organs Fallopian tube disorder Unspecified noninflammatory disorder of ovary, fallopian tube, and broad ligament documented in this encounter [facility] HealthcareEvaluation note* Diagnosis Encounter for fertility planning PCOS (polycystic ovarian syndrome) Polycystic ovaries Pelvic pain in female Unspecified symptom associated with female genital organs Abnormal uterine bleeding (AUB) documented in this encounter [facility] HealthcareEvaluation note* Diagnosis Heart palpitations- Primary Palpitations documented in this encounter [facility]* Diagnosis Encounter for fertility planning Acute cystitis without hematuria PCOS (polycystic ovarian syndrome) Polycystic ovaries Fallopian tube disorder Unspecified noninflammatory disorder of ovary, fallopian tube, and broad ligament documented in this encounter [facility] HealthcareEvaluation note* Diagnosis Well woman exam with routine gynecological exam Routine gynecological examination documented in this encounter [facility] HealthcareEvaluation note* Diagnosis Skin mole documented in this encounter [facility] HealthcareEvaluation noteNo assessment information [facility] Work Phone: Evaluation note* Diagnosis Encounter for preprocedural laboratory examination- Primary Abnormal uterine bleeding Unspecified disorder of menstruation and other abnormal bleeding from female genital tract documented in this encounter [facility] Work Phone: Evaluation note* Diagnosis Amenorrhea Absence of menstruation Missed menses , unspecified gestational age ([facility]) Encounter for supervision of normal first in first trimester ([facility]) 9 weeks gestation of ([facility]) Vitamin D deficiency History of hypertension Personal history of other diseases of circulatory system documented in this encounter [facility] HealthcareEvaluation note* Diagnosis 13 weeks gestation of ([facility]) Second trimester ([facility]) state, incidental Acute nonintractable headache, unspecified headache type documented in this encounter [facility] HealthcareEvaluation note* Diagnosis 15 weeks gestation of ([facility]) Second trimester ([facility]) state, incidental Acute nonintractable headache, unspecified headache type BP check Screening for hypertension Gestational hypertension, antepartum ([facility]) induced hypertension, antepartum ([facility]) Transient hypertension of , antepartum documented in this encounter [facility] Healthcare[facility] note* Diagnosis Hypertension affecting in second trimester- Primary documented in this encounter [facility]* Diagnosis Screening, , for anatomic survey ([facility]) Encounter for anatomic survey Second trimester ([facility]) state, incidental 17 weeks gestation of ([facility]) Screen for STD (sexually transmitted disease) Screening examination for venereal disease Need for maternal serum alpha-protein (MSAFP) screening ([facility]) induced hypertension, antepartum ([facility]) Transient hypertension of , antepartum Vitamin D deficiency documented in this encounter [facility] HealthcareEvaluation note* Diagnosis Chronic 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 Severe obesity due to excess calories affecting , antepartum ([facility]) 20 weeks gestation of [facility] 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 Chronic hypertension affecting Severe obesity due to excess calories affecting , antepartum ([facility]) Hypertension affecting in second trimester [facility] 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 Chronic hypertension affecting Severe obesity due to excess calories affecting , antepartum ([facility]) Hypertension affecting in second trimester documented in [...] SystemInstructionsNot on filedocumented in this encounter [facility] Family History Relationship Condition Age at [...] Reason Comments Infertility Reason Comments 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 D W/ PT LABS HM AT [facility] AT PCP Specialty Diagnoses / Procedures Referred By Radha t Referred To Contact Cardiology Diagnoses Heart palpitations Sabiha Aviles, REPAIR ARMATURE WINDER-STONE CRUSHER OPERATOR [address] [place] [address] [facility] [address] [place] [address] Referral ID Status Reason Start Date Expiration Date Visits Requested Visits Authorized [id number] Pending Review Specialty Services Required 01/25/2024 01/24/2025 [...] 2023 End: November 24, 2023 Pinky Singh BALLAST CLEANING OPERATOR-C Attending Provider Active S tart: November 24, 2023 End: November 24, 2023 Baseball Player Relationship Specialty Start Date End Date KromerAndresJudy PCP - [facility] [place] MATTRESS WEAVER 02/20/24 Baseball Player Relationship Specialty Start Date End Date Kromer, Judy PCP - [facility] [place] MATTRESS WEAVER 02/20/24 Baseball Player Relationship Specialty Start Date End Date Kromer, Judy PCP - [facility] [place] MATTRESS WEAVER 02/20/24 Baseball Player Relationship Specialty Start Date End Date Kromer, Judy PCP - [facility] [place] MATTRESS WEAVER 02/20/24 Baseball Player Relationship Specialty Start Date End Date Kromer, Judy PCP - [facility] [place] MATTRESS WEAVER 02/20/24 Baseball Player Relationship Specialty Start Date End Date Kromer, Judy PCP - [facility] [place] MATTRESS WEAVER 02/20/24 Baseball Player Relationship Specialty Start Date End Date Kromer Judy PCP - [facility] [place] MATTRESS WEAVER 02/20/24 Baseball Player Relationship Specialty Start Date End Date Services, [facility] [address] [place] PCP - General Family Medicine 11/12/22 Baseball Player Relationship Specialty Start Date End [facility] [address] [place] PCP - General Family Medicine 11/12/22 Baseball Player Relationship Specialty Start Date End [facility] [address] [place], [place] PCP - General Family Medicine 11/12/22 Baseball Player Relationship Specialty Start Date End Date Kromer, Judy PCP - [facility] [place] MATTRESS WEAVER 02/20/24 Baseball Player Relationship Specialty Start Date End Date Kromer, Judy [facility] - [facility] [place] [employer] 02/20/24 Baseball Player Relationship Specialty Start Date End Date Kromer Judy PCP - [facility] [place] [facility] 02/20/24 Baseball Player Relationship Specialty Start Date End Date Kromer, Judy PCP - [facility] [place] [facility] 02/20/24 Team Status: Inactive Member Role Status Dates Caesar Broderick DO Attending Provider Active Start : December 18, 2024 End: December 18, 2024 Baseball Player Relationship Specialty Start Date End Date June Trinidad LPN Licensed Practical Nurse Reproductive Endocrinology and Infertility 01/01/25 Baseball Player Relationship Specialty Start Date End Date KromerAndresJudy PCP - [facility] [place] [facility] 02/20/24 Baseball Player Relationship Specialty Start Date End Date Kromer, Judy PCP - [facility] [place] [facility] 02/20/24 Baseball Player Relationship Specialty Start Date End Date Kromer, Judy PCP - [facility] [place] [facility] 02/20/24 Baseball Player Relationship Specialty Start Date End Date Kromer Judy PCP - [facility] [place] [facility] 02/20/24 Baseball Player Relationship Specialty Start Date End Date Services, [facility] [address] [place] PCP - General Family Medicine 11/03/24 Baseball Player Relationship Specialty Start Date End Date Services, [facility] [address] [place] PCP - General Family Medicine 11/03/24 Baseball Player Relationship Specialty Start Date End Date Kromer Judy PCP - [facility] [place] [facility] 02/20/24 Baseball Player Relationship Specialty Start Date End Date Services, [facility] [address] [place] PCP - General Family Medicine 11/03/24 Baseball Player Relationship Specialty Start Date End Date Services, [facility] [address] [place] PCP - General Family Medicine 11/03/24 Baseball Player Relationship Specialty Start Date End Date [facility], [facility] [address] [place], [place] PCP - General Family Medicine 11/03/24 Goals (unrecognized section and content) Goals may be documented in a n alternate section INFORMATION SOURCE (unrecogn ized section and content) DATE CREATED AUTHOR 12/29/2024 [facility] DATE CREATED AUTHOR AUTHOR'S ORGANIZ ATION 01/07/2025 [facility] DATE CREATED AUTHOR AUTHOR'S ORGANIZ ATION 04/27/2025 [facility] DATE CREATED AUTHOR AUTHOR'S ORGANIZ ATION 05/01/2025 [facility] DATE CREATED AUTHOR AUTHOR'S ORGANIZ ATION 05/24/2025 [facility] FOR RECORDS PERTAINING TO PATIENTS WHO ARE [...] BE BASED ON THE PRIMARY CLINICAL RECORDS. [employer] provides no warranty or guarantee of the accuracy or completeness of information in this document.
--- OUTSIDE RECORDS SUMMARY | 2025-05-26 10:05 | XMS_ITS | Encounter Summary ---
Author Organization [facility] tem Address [facility]-[id number] [address] [place] [address] Care Team Providers Care Bioinformatics Support Specialist Name Role Phone Services, [facility] Primary Care Provider Encounter Details Date Type Department Care Team (Late Contact Info) Description 03/21/2024 Orders Only [facility] [address] [place] [address] External, Scanning Provider Social History [...] Description 06/18/2025 8:00 AM EDT Appointment [facility] - Ultrasound [address] [place] [phone] 06/18/2025 2:00 PM EDT Telemedicine Maternal- Medicine at [facility] [address] [place] [address] Sheila Cruz MD [address] [place] [address] documented as of this encounter Procedures Procedure Name Priority Date/Time Associated Diagnosis Comments MULTIPLE LABS Routine 03/21/2024 11:19 AM EDT LIPID PROFILE Routine 03/21/2024 documented in this encounter Results * Multiple labs (03/21/2024 11:19 AM EDT) us Scanning Provider External [facility] Final Result MANUALLY TRANSCRIBED RESULTS * [...] on filedocumented in this encounter Care Teams Bioinformatics Support Specialist Relationship Specialty Start Date End Date Services, [facility] [address] [place] PCP - General Family Medicine 11/03/24 documented as of this encounter
--- OUTSIDE RECORDS SUMMARY | 2025-05-26 10:05 | XMS_ITS | Encounter Summary ---
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 Severe obesity due to excess calories affecting , antepartum ([facility]) Hypertension affecting in second trimester Procedures US [facility] with or without consult Sheila Cruz MD [address] [facility] 1st [place] [address] Phone: tel: fax: Maternal- Medicine at [facility] [address] [place] [address] Phone: tel: fax: Referral ID Status Reason Start Date Expiration Date V isits Requested Visits Authorized [id number] Pending Review 05/17/2025 05/17/2026 1 1 Encounter Details Date Type Department Care Team (Late st Contact Info) Description 05/17/2025 Orders Only Maternal- Medicine at [facility] [address] [place] [address] Bethany Lundy, SHAD Acute palmoplantar pustular psoriasis [...] Info) Description 06/18/2025 8:00 AM EDT Appointment [facility] - Ultrasound [address] [place] [phone] 06/18/2025 2:00 PM EDT Telemedicine Maternal- Medicine at [facility] [address] [place] [address] Sheila Cruz MD [address] 1st [place] [address] Scheduled Orders Name Type Priority Associated Diagnoses [...] trimester documented in this encounter Care Teams Linux Architect Relationship Specialty Start Date End Date Services, [facility] [address] [place], [place] PCP - General Family Medicine 11/03/24 documented as of this encounter
--- OUTSIDE RECORDS SUMMARY | 2025-05-26 10:05 | XMS_ITS | Encounter Summary ---
Author Organization [facility] tem Address [facility]-[id number] [address] [place] [address] Care Team Providers Care Sales Representative Door To Door Name Role Phone Services, [facility] Primary Care Provider Encounter Details Date Type Department Care Team (Late Contact Info) Description 05/17/2025 Results Follow-Up Maternal- Medicine at [facility] [address] [place] [phone] Sheila Cruz MD [address] [facility] 1st [place] [address] B-type natriuretic peptide Social History Tobacco Use [...] Info) Description 06/18/2025 8:00 AM EDT Appointment [facility] - Ultrasound [address] [place] [address] 06/18/2025 2:00 PM EDT Telemedicine Maternal- Medicine at [facility] [address] [place] [address] Sheila Cruz MD [address] [facility] 1st [place] [address] documented as of this encounter Visit Diagnoses Not on filedocumented in this encounter Care Teams Sales Representative Door To Door Relationship Specialty Start Date End Date Services, [facility] [address] [facility] [place] [place] PCP - General Family Medicine 11/03/24 documented as of this encounter
--- OUTSIDE RECORDS SUMMARY | 2025-05-26 10:05 | XMS_ITS | Patient Health Record ---
Author Organization [facility] Address [address] [place], [place] [id number] Care Team Providers Care Petroleum Inspector Name Role Phone Sabiha Aviles Primary Care Provider [phone] Noelle Chris Unavailable Judy Yepez Unavailable [phone] Allergies No Known Allergies Results Component Value Reference Range Notes AFP, Serum, Open Spina Bifid a (Not yet reviewed by provider) Interpretation: Performing Lab: Notes/Report: , [facility]/ N N N N N 282 1 N 9 2 [id number] LMP N N Results Report . Test Results: *Screen Negative* . Gest. Age on Collection Date 21.1 . weeks Gestat. Age Based On LMP . Recalculations are not recommended when gestational dating by LMP and ultrasound are within 10 days. M[age] PETROS 33[age]5 [age] Race . Weight 282 . lbs Insulin Dep Diabetes No . Multiple Gestation No . AFP Value 38.2 . ng/mL AFP MoM 0.85 . OSBR [place] 1 [place] [address] . Interpretation Comment . Interpretation: Screen Negative This result is screen [...] Customer Services to discuss available options. The [place] [employer] recommends amniocentesis be offered to women age 35 and older. Comment: Comment . Gema Ortez, Ph.D., [facility] Director References: Available Upon Request. Multiples Of Median Cutoffs For AFP Elevations Kumar 2.5 Black 2.8 IDD 2.0 Twins 4.5 Abbreviation Definitions IDD - Insulin Dep Diabetes OSBR - Open Spina Bifida Risk For further inquiries contact [facility] at [phone]. This test was developed and its performance characteristics determined by [facility]. It has not been cleared or approved by the Food and Drug Administration. Performed at: - [facility] RTP [address] [facility], [place], [place] [id number] Specifications Writer: Jesus Saleh [facility], Phone: [phone] Performing Lab: see note - [facility] URINALYSIS - REFLEX CULTURE/ SENS Reviewed date:11/13/2024 11:59:49 AM Interpretation: Performing Lab: Notes/Report: PH 6.5 5.0-8.0 SP GRAVITY 1.006 1.005-1.030 APPEARANCE CLEAR CLEAR COLOR YELLOW YELLOW PROTEIN NEGATIVE NEGATIVE GLUCOSE NEGATIVE NEGATIVE KETONES NEGATIVE NEGATIVE BILIRUBIN NEGATIVE NEGATIVE OCCULT BLOOD NEGATIVE NEGATIVE LEUKO DANIEL NEGATIVE NEGATIVE NITRITE NEGATIVE NEGATIVE UROBILINOGEN 0.2 <2 mg/dL UNLESS OTHERWISE INDICATED, ALL TESTING PERFORMED AT: [facility] [address] [place] [address] IVF EMBRYOLOGIST: BARBARA DASH M.D. CLIA NUMBER [id number] CAP ACCREDITATION AUID [id number] Urine Dip Reviewed date:11/12/2024 05:53:24 PM Interpretation: Performing Lab: Notes/Report: Bilirubin - Occult Blood - Glucose - Ketones - WBC - Nitrite - Ph 6.0 Protein - Specific [place] 1.010 Color yellow Appearance clear LIPID PANEL WITH REFLEX TO D IRECT LDL Reviewed date:02/08/2025 11:13:42 AM Interpretation: Performing Lab: Notes/Report: CHOLESTEROL 170 100-199 mg/dL TRIGLYCERIDES 208 20-149 mg/dL VLDL-CHOL, CALCULATED 42 <30 mg/dL HDL-CHOL 45 >=50 mg/dL LDL-CHOL, CALCULATED 83 <130 mg/dL ADULT LDL CHOLESTEROL CLASSIFICATION <100mg/dL Opti mal 100-129mg/dL Near /Above Optimal 130-159mg/dL Bord adrianne High >160mg/dL High Risk Desirable range <100 [...] Lab: Notes/Report: TSH 1.69 0.270-4.200 uIU/mL The [place] [employer] (HUGO) recommends the following reference [...] 25-[place] VITAMIN D INTERPRETATION Deficiency.... <20.0 ng/ml Insufficiency..20.0-29. 0 ng/ml Sufficiency....30.0-100 .0 ng/ml Possible Toxicity...>150 ng/ml UNLESS OTHERWISE INDICATED, ALL TESTING PERFORMED AT: [facility] [employer]. [address] [place] [address] IVF EMBRYOLOGIST: BARBARA DASH M.D. 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 Stress is when someone feels tense, nervous, anxious, or can't sleep at night because their mind is troubled Quite a bit patient entered data In the past year have you sp ent more than 2 nights in a row in a fdc, residential, longterm center, or juvenile correctional facility? No patient [...] Notes Problem Exercises teaching, guidance, and counseling (330751968) Exercise counseling (Z71.82) Active confirmed Problem Missed period (41905994) Missed period (N92.6) Active confirmed Problem Vitamin D deficiency (64768032) Vitamin D deficiency (E55.9) Active confirmed Problem Burning sensation of vagina (finding) (724430695) Vaginal burning (N94.9) Active confirmed Problem Anxiety depression (421837204) Anxiety with depression (F41.8) Active confirmed Problem Dietary management surveillance (938611355) Dietary counseling (Z71.3) Active confirmed Problem Female infertility (3638978) Female fertility problem (N97.9) Active confirmed Vital Signs Heart Rate 95 /min 05/21/2025 Ac Ser vando 05/21/2025 01:17:11 PM EDT > Temperature 98.0 degrees Fahrenheit 05/21/2025 Tayo day Dayron 05/21/2025 01:17:11 PM EDT > Respiratory Rate 18 /min 05/21/2025 Ac, Dayron 05/21/2025 01:17:11 PM EDT > Height-cm 172.72 cm 05/21/2025 Ac Ser vando 05/21/2025 01:17:11 PM EDT > Oximetry 99 % 05/21/2025 Shen, Ser vando 05/21/2025 01:17:11 PM EDT > Blood pressure diastolic 85 mm Hg 05/21/2025 Jasmina domarty Dayron 05/21/2025 01:17:11 PM EDT > Weight-kg 128.82 kg 05/21/2025 Shen, Ser vando 05/21/2025 01:17:11 PM EDT > Height 68 in 05/21/2025 Shen, Ser vando 05/21/2025 01:17:11 PM EDT > Blood pressure systolic 141 mm Hg 05/21/2025 Tayo day Dayron 05/21/2025 01:17:11 PM EDT > Weight 284 lbs 05/21/2025 Shen, Ser vando 05/21/2025 01:17:11 PM EDT > BMI 43.18 kg/m2 05/21/2025 Shen, Ser vando 05/21/2025 01:17:11 PM EDT > Encounters Encounter Location Date Provider Diagnosis East [address] [place], [place] [phone] 11/06/2024 [facility] Depression with anxi ety F41.8 and Hospital discharge follow-up Z09 [address] [id number] 11/12/2024 [facility] Dysuria R30.[address] [id number] 12/04/2024 [facility] Anxiety with depress ion F41.[address] [id number] 02/05/2025 [facility] Encounter for [facility] ss examination Z00.00 ; Screening for cardiovascular condition Z13.6 ; Exercise counseling Z71.82 ; Nutritional counseling Z71.3 ; Screening for thyroid disorder Z13.29 and Vitamin D deficiency E55.9 [address] [place], [place] [phone] 05/21/2025 [place] Anxiety with depress ion F41.8 ; Left otitis media, unspecified otitis media type H66.92 ; 21 weeks gestation of Z3A.21 ; Severe obesity (BMI >= 40) E66.01 and BMI 40.0-44.9, adult Z68.41 [address] [place], [place] [id number] 04/26/2025 Noelle Chris Anxiety with depress ion F41.8 [address] [place], [place] [phone] 06/24/2024 Judy Yepez Assessments Encounter Date Diagnosis (ICD Code) Assessment Notes Treatment Notes Treatment Clinical Notes Section Notes 02/05/2025 Encounter for wellness examination (ICD-10 - [...] minimize the worsening of any cardiovascular conditions. 05/21/2025 Left otitis media, unspecified otitis media [...] & PRN Continue following w/ OBGYN for 04/26/2025 Anxiety with depression (ICD-10 - F41.8) 12/04/2024 Anxiety with depression (ICD-10 - F41.8) increasing zoloft f.u in 3 months or sooner if needed 11/12/2024 Dysuria (ICD-10 - R30.0) urine dip normal in office will send for culture 11/06/2024 Depression with anxiety (ICD-10 - F41.8) begin zoloft will start with 25mg and increase to 50mg if needed f.u in 4 weeks or sooner if needed if develop SI, please go to ER or call 911. 05/21/2025 21 weeks gestation of (ICD-10 - Z3A.21) 11/06/2024 Hospital discharge follow-up (ICD-10 - Z09) 02/05/2025 Exercise counseling (ICD-10 - Z71.82) The [...] diminished aches and pain, and better metabolism. 05/21/2025 Severe obesity (BMI >= 40) (ICD-10 [...] - E55.9) 02/05/2025 Other Plan Of Treatment Pending Test Test Name Order Date AFP, Serum, Open Spina Bifida 05/23/2025 Next Appt Details Provider Name:Judy Yepez , 08/20/2025 01:15:00 PM, [address] [place], [place], [id number], Insurance Providers Payer Name Payer Address Payer Phone Subscriber Number Group Number Insured Name Patient Relationship to Insured Coverage Start Date Coverage End Date [facility] [address] [place] [address] [phone] [id number] [id number] Chayo Ramires Self - patient is the insured 3 Medicaid [employer] after [place] [address] [place] [id number] Chayo Ramires Self - patient is the insured 3 Medical (General) History Medical History History ICD Code anxiety depression Surgical History Surgery Date(Month/Year) [place] teeth laparoscopy- endometriosis
--- OUTSIDE RECORDS SUMMARY | 2025-05-26 10:05 | XMS_ITS | Encounter Summary ---
Author Organization [facility] Address [address] [facility] [place] [address] Care Team Providers Care Market Research Lead Name Role Phone Judy Caal Unavailable Unavailable Encounter Details Date Type Department Care Team (Late st Contact Info) Description 05/23/2025 Bamboo flowsheet [facility] [address] [place] [address] Rosie Qiu, CANDY SEPARATOR ENROBING [address] [place] [address] Social History Tobacco Use Types Packs/Day Years [...] 3:20 PM EDT Routine [facility] [address] [place] [address] Rosie Qiu, JEM [address] [place] [address] 06/24/2025 1:50 PM EST Routine [facility] [address] [place] [address] Caesar Broderick, DO [address] [facility] [place] [address] 12/16/2025 3:00 PM EDT Office Visit [facility] [address] [place] [address] Caesar Broderick, DO [address] [facility] [place] [address] documented as of this encounter Visit Diagnoses Not on filedocumented in this encounter Care Teams Market Research Lead Relationship Specialty Start Date End Date Judy Caal PCP - [facility] GEOMAGNETICIAN 02/20/24 documented as of this encounter
--- OUTSIDE RECORDS SUMMARY | 2025-05-26 10:05 | XMS_ITS | Encounter Summary ---
Author Organization [facility] Address [address] [place] [address] Care Team Providers Care Technology Resource Teacher Name Role Phone Judy Caal Unavailable Unavailable Encounter Details Date Type Department Care Team (Late st Contact Info) Description 04/25/2024 Clinisync Result Encounter [facility] External Department Unsolicited Israel Broderick, [address] [place], [place] [phone] Social History Tobacco Use Types Packs/Day Years [...] PM EDT Routine [facility] [address] [place] [address] Rosie Qiu, JEM [address] [place] [address] 06/24/2025 1:50 PM EST Routine [facility] [address] [place] [address] Israel Broderick DO [address] [place], [place] [phone] 12/16/2025 3:00 PM EDT Office Visit [facility] [address] [place] [address] Israel Broderick DO [address] [facility] [place] [address] documented as of this encounter Procedures Procedure Name Priority Date/Time Associated Diagnosis Comments US PELVIS W/ TRANSVAGINAL 04/25/2024 6:34 AM EDT documented in this encounter Results * US PELVIS W/ TRANSVAGINAL (04/25/2024 6:34 AM EDT) Anatomical Region Laterality Modality Other 04/25/2024 6:34 AM EDT Narrative 04/25/2024 6:37 AM EDT [address] [address] Ultrasound Report Signed Patient: ELLEN RAMIRES MR#: [id number] : 1990 Acct:[id number] Age/Sex: 34 / F ADM Date: 04/24/24 Loc: US Attending Dr: Israel Broderick D.O. Ordering Physician: Israel Broderick D.O. Date of Service: 04/24/24 Procedure(s): US pelvis w/ transvaginal Accession Number(s): [id number] cc: Israel Broderick D.O.; Sabiha Aviles JACKET PREPARER [address] [address] Patient Name: ELLEN RAMIRES MRN: [id number] date: 1990 Sex: F Assigned Patient Location: US Current Patient Location: Accession/Order Number: [id number] Exam Date: 04/24/2024 14:00 Report Date: 04/25/2024 [...] Dean M.D. Signed By: 04/25/2437 DD/ TD/TT: Programming Instructor: Procedure Note Radiology, Radiologist, MD - 04/25/2024 [place] [address] Ultrasound Report Signed Patient: ELLEN RAMIRES R#: [id number] : 1990Acct:[id number] Age/Sex: 34 / FADM Date: 04/24/24 Loc: US Attending Dr: Israel Broderick D.O. Ordering Physician: Israel Broderick D.O. Date of Service: 04/24/24 Procedure(s): US pelvis w/ transvaginal Accession Number(s): [id number] cc: Israel Broderick D.O.; Sabiha Aviles JACKET PREPARER The [address] [address] Patient Name: ELLEN RAMIRES MRN: [id number] date: 1990 Sex: F Assigned Patient Location: US Current Patient Location: Accession/Order Number: [id number] Exam Date: 04/24/2024 14:00 Report Date: 04/25/2024 [...] M.D. Signed By:04/25/24 0637 DD/ 0634 TD/TT: Programming Instructor: us Israel Broderick DO [facility] Final Result documented in this encounter Visit Diagnoses Not on filedocumented in this encounter Care Teams Technology Resource Teacher Relationship Specialty Start Date End Date Judy Caal PCP - [facility] ORACLE WEBCENTER CONSULTANT 02/20/24 documented as of this encounter
--- OUTSIDE RECORDS SUMMARY | 2025-05-26 10:05 | XMS_ITS | Encounter Summary ---
Author Organization [facility] Address [address] [place] [address] Care Team Providers Care Automotive Assembler Name Role Phone Judy Caal Unavailable Unavailable Encounter Details Date Type Department Care Team (Late st Contact Info) Description 05/23/2025 Clinisync Result Encounter NOMS External Department Unsolicited Caesar Broderick, DO [address] [place], [facility]11 Social History Tobacco Use [...] 3:20 PM EDT Routine [facility] Aman HEAD [address] [place], [place] [address] [place] [address] Rosie Qiu, JEM [address] [place] [address] 06/24/2025 1:50 PM EST Routine NOM[facility]rent HEAD [address] [place] [address] Caesar Broderick, [address] [place], [place] [id number] 12/16/2025 3:00 PM EDT Office Visit [facility] Aman OBGYN [address] [place] [address] Caesar Broderick, [address] [facility] [address] [place], [place] [id number] documented as of this encounter Procedures Procedure Name Priority Date/Time Associated Diagnosis Comments AFP, SERUM, OPEN SPINA BIFIDA Routine 05/23/2025 2:30 PM EDT documented in this encounter Results * AFP, SERUM, OPEN SPINA BIFIDA (05/23/2025 2:30 PM EDT) RESULTS Report . [facility] TEST RESULTS: *Screen Negative* . [facility] GEST. AGE ON COLLECTION DATE 21.1 . weeks [facility] GESTAT. AGE BASED ON LMP . [facility] Comment: Recalculations are not recommended when gestational dating by LMP and ultrasound are within 10 days. [age] . [age] [facility] RACE . [facility] WEIGHT 282 . lbs [facility] INSULIN DEP DIABETES No . [facility] MULTIPLE GESTATION No . [facility] AFP VALUE 38.2 . ng/mL [facility] AFP MOM 0.85 . [facility] [place] [phone] . [facility] INTERPRETATION Comment . [facility] Comment: Interpretation: Screen Negative This result is [...] Customer Services to discuss available options. The [place] [employer] recommends amniocentesis be offered to women age 35 and older. COMMENT: Comment . [facility] Comment: Gema Ortez, Ph.D., [facility] Director References: Available Upon Request. Multiples Of Median Cutoffs For AFP Elevations Kumar 2.5 Black 2.8 IDD 2.0 Twins 4.5 Abbreviation Definitions IDD - Insulin Dep Diabetes OSBR - Open Spina Bifida Risk For further inquiries contact [facility] Genetics Services at [phone]. This test was developed and its performance characteristics determined by [employer]. It has not been cleared or approved by the Food and Drug Administration. Performed at: - [facility] [address] [facility], [place], [place] [id number] Supervisor Webbing: Jesus Saleh [facility], Phone: [phone] 05/23/2025 2:30 PM EDT 05/23/2025 2:40 PM EDT Narrative [facility] - 05/25/2025 1:07 AM EDT N N LMP [id number] 2 9 N 1 282 N N N N N White/ us Caesar Davie DO LAB BLOOD ORDERABLES Final Resul t [facility] documented in this encounter Visit Diagnoses Not on filedocumented in this encounter Care Teams Automotive Assembler Relationship Specialty Start Date End Date Judy Caal PCP - [facility] Rosey FIELD ARTILLERY FIRE CONTROL MAN 02/20/24 documented as of this encounter
--- OUTSIDE RECORDS SUMMARY | 2025-05-26 10:05 | XMS_ITS | Clinical Summary ---
Author Organization [facility] Address [address] [place] [address] Phone Care Team Providers Care Cooler Worker Name Role Phone June Trinidad LPN [...] age to complete this topic Insurance [address] [place] [id number] [employer] MEDICAID [address] [place] [id number] [facility] MEDICAID Care Teams Cooler Worker Relationship Specialty Start Date End Date June Trinidad LPN Licensed Practical Nurse Reproductive Endocrinology and Infertility 01/01/25
--- OUTSIDE RECORDS SUMMARY | 2025-05-26 10:05 | XMS_ITS | Encounter Summary ---
Author Organization [facility] Address [address] [place] [address] Care Team Providers Care Attending Ambulatory Care Name Role Phone Judy Caal Unavailable Unavailable Encounter Details Date Type Department Care Team (Late st Contact Info) Description 04/10/2024 Abstract LIANA HEAD [address] [place] [address] Caesar Broderick DO [address] [facility] [address] [place], [facility]11 Social History Tobacco Use Types Packs/Day [...] 3:20 PM EDT Routine N[facility]Trent HEAD [address] [place] [address] Rosie Qiu, JEM [address] [place] [address] 06/24/2025 1:50 PM EST Routine LIANA HEAD [address] [place] [address] Caesar Broderick DO [address] [place], [facility]11 12/16/2025 3:00 PM EDT Office Visit LIANA HEAD [address] [place] [address] Caesar Broderick DO [address] [facility] [place] [address] documented as of this encounter Visit Diagnoses Not on filedocumented in this encounter Care Teams Attending Ambulatory Care Relationship Specialty Start Date End Date Judy Caal PCP - [facility] Rosey LEATHER PRODUCTION ARTISAN 02/20/24 documented as of this encounter
--- OUTSIDE RECORDS SUMMARY | 2025-05-26 10:05 | XMS_ITS | Encounter Summary ---
Author Organization [facility] Address [address] [place] [address] Care Team Providers Care Transverse Abdominal Muscle Nurse Name Role Phone Judy Caal Unavailable Unavailable Encounter Details Date Type Department Care Team (Late st Contact Info) Description 07/05/2024 Abstract LIANA HEAD [address] [place] [address] Karoline Casillas LPN Social History Tobacco [...] 3:20 PM EDT Routine LIANA HEAD [address] [place] [address] Rosie Qiu, JEM [address] [facility] [place] [phone] 06/24/2025 1:50 PM EST Routine LIANA HEAD [address] [place] [address] Caesar Broderick DO [address] [facility] [address] [place], [place] [address] 12/16/2025 3:00 PM EDT Office Visit LIANA LAWSONGYN [address] [place] [address] Caesar Broderick DO [address] [facility] [place] [address] documented as of this encounter Visit Diagnoses Not on filedocumented in this encounter Care Teams Transverse Abdominal Muscle Nurse Relationship Specialty Start Date End Date Judy Caal PCP - [facility] Rosey TOOTH GRINDER 02/20/24 documented as of this encounter
--- OUTSIDE RECORDS SUMMARY | 2025-05-26 10:05 | XMS_ITS | Encounter Summary ---
Author Organization [facility] Address [address] [place] [address] Care Team Providers Care Grain Sampler Name Role Phone Judy Caal Unavailable Unavailable Encounter Details Date Type Department Care Team (Late st Contact Info) Description 04/26/2025 Abstract LIANA HEAD [address] [facility] [place] [address] Tsering Willingham MA Social History Tobacco [...] 3:20 PM EDT Routine NOMTrent HEAD [address] [place] [address] Rosie Qiu, JEM [address] [facility] [place] [address] 06/24/2025 1:50 PM EST Routine LIANA HEAD [address] [facility] [place] [address] Caesar Broderick DO [address] [place] [address] 12/16/2025 3:00 PM EDT Office Visit N[facility]rent HEAD [address] [facility] [place] [address] Caesar Broderick DO [address] [facility] [place] [address] documented as of this encounter Visit Diagnoses Not on filedocumented in this encounter Care Teams Grain Sampler Relationship Specialty Start Date End Date Judy Caal PCP - [facility]S Rosey AGRICULTURE EXTENSION SPECIALIST 02/20/24 documented as of this encounter
--- OUTSIDE RECORDS SUMMARY | 2025-05-26 10:06 | XMS_ITS | Encounter Summary ---
Author Organization [facility] tem Address [id number] [place] [address] Care Team Providers Care Dough Mixing Machine Operator Name Role Phone Services, [facility] Primary Care Provider Encounter Details Date [...] Description 06/18/2025 8:00 AM EDT Appointment [facility] - Ultrasound [address] [place] [address] 06/18/2025 2:00 PM EDT Telemedicine Maternal- Medicine at [facility] [address] [place] [address] Sheila Cruz MD [address] 1[address] [place] [address] documented as of this encounter Visit Diagnoses Not on filedocumented in this encounter Care Teams Dough Mixing Machine Operator Relationship Specialty Start Date End Date Services, [facility] [address] [place], [place] PCP - General Family Medicine 11/03/24 documented as of this encounter
--- OUTSIDE RECORDS SUMMARY | 2025-05-26 10:06 | XMS_ITS | Encounter Summary ---
Author Organization [facility] Address [address] [place] [address] Care Team Providers Care Hogshead Head Matcher Name Role Phone Judy Caal Unavailable Unavailable Encounter Details Date Type Department Care Team (Late st Contact Info) Description 06/01/2024 Abstract LIANA HEAD [address] [facility] [place] [address] Caesar Broderick DO [address] [facility] [address] [place], [facility] [address] Social History Tobacco Use Types Packs/Day Years [...] 3:20 PM EDT Routine LIANA HEAD [address] [place] [address] Rosie Qiu, JEM [address] [place] [address] 06/24/2025 1:50 PM EST Routine LIANA HEAD [address] [place] [address] Caesar Broderick DO [address] [place], [facility] [address] 12/16/2025 3:00 PM EDT Office Visit LIANA HEAD [address] [facility] [place] [address] Caesar Broderick DO [address] [facility] [place] [address] documented as of this encounter Visit Diagnoses Not on filedocumented in this encounter Care Teams Hogshead Head Matcher Relationship Specialty Start Date End Date Judy Caal PCP - [facility] Rosey MAILING MACHINE HELPER 02/20/24 documented as of this encounter
--- OUTSIDE RECORDS SUMMARY | 2025-05-26 10:06 | XMS_ITS | Encounter Summary ---
Author Organization [facility] tem Address [id number] [address] [place] [address] Care Team Providers Care Director Life Insurance Name Role Phone Services, [facility] Primary Care Provider Encounter Details Date Type Department Care Team ([facility] Contact Info) Description 04/23/2025 Orders Only Maternal- Medicine at [facility] [address] [place] [address] Ref Prov, [place] [address] Social History Tobacco Use Types Packs/Day Years [...] Upcoming Encounters Date Type Department Care Team ([facility] Contact Info) Description 06/18/2025 8:00 AM EDT Appointment [facility] - Ultrasound [address] [address] 06/18/2025 2:00 PM EDT Telemedicine Maternal- Medicine at [facility] [address] [place] [phone] Sheila Cruz MD [address] 1[address] [place] [address] documented as of this encounter Procedures Procedure Name Priority Date/Time Associated Diagnosis Comments URIC ACID Routine 04/17/2025 1:11 PM EDT BUN Routine 04/17/2025 CREATININE, SERUM Routine 04/17/2025 documented in this encounter Results * Uric acid (04/17/2025 1:11 PM EDT) Blood Venous blood / Unknown us Not In System Ref Prov LAB BLOOD ORDERABLES Alma l Result Performing Organization Address City/[facility] Co de Phone Number MANUALLY TRANSCRIBED RESULTS * BUN (04/17/2025) Blood Venous blood / Unknown us Not In System Ref Prov LAB BLOOD ORDERABLES Edit ed Result - Final Performing Organization Address [facility] Co de Phone Number MANUALLY TRANSCRIBED RESULTS * Creatinine includes GFR, serum (04/17/2025) Blood Venous blood / Unknown us Not In System Ref Prov LAB BLOOD ORDERABLES Edit ed Result - Final Performing Organization Address [facility] Co de Phone Number MANUALLY TRANSCRIBED RESULTS documented in this encounter Visit Diagnoses Not on filedocumented in this encounter Care Teams Director Life Insurance Relationship Specialty Start Date End Date [facility], [facility] [address] [place], [place] PCP - General Family Medicine 11/03/24 documented as of this encounter
--- OUTSIDE RECORDS SUMMARY | 2025-05-26 10:06 | XMS_ITS | Encounter Summary ---
Author Organization [facility] Address [address] [place] [address] Care Team Providers Care Director Operating Name Role Phone Judy Caal Unavailable Unavailable Encounter Details Date Type Department Care Team (Late st Contact Info) Description 06/01/2024 Abstract LIANA HEAD [address] [facility] [place] [address] Caesar Broderick DO [address] [facility] [address] [place], [facility]11 Social History Tobacco Use Types Packs/Day [...] 3:20 PM EDT Routine LIANA HEAD [address] [place] [address] Rosie Qiu, JEM [address] [place] [address] 06/24/2025 1:50 PM EST Routine LIANA HEAD [address] [place] [address] Caesar Broderick DO [address] [place], [facility]11 12/16/2025 3:00 PM EDT Office Visit LIANA HEAD [address] [facility] [address] Caesar Broderick DO [address] [facility] [place] [address] documented as of this encounter Visit Diagnoses Not on filedocumented in this encounter Care Teams Director Operating Relationship Specialty Start Date End Date Judy Caal PCP - [facility]OMS Rosey COLLEGE ATHLETIC DIRECTOR 02/20/24 documented as of this encounter
[2025-05-26 10:57] LABS: Total Protein Urine Random <6.0 mg/dL (<=11.9)
[2025-05-26 11:00] LABS: Creatinine 24 Hour Urine 2114.35 mg/24 hr (800.00-1800.00); Total Volume 24 Hour Urine 3500 mL/24hr
== END 2025-05-26 10:03 | disposition home or self-care (01) ==
LOC: LAB 10:02
PROVIDERS: Visit Provider Student in an Organized Health Care Education/Training Program
DX: O10.912 Unspecified pre-existing hypertension complicating pregnancy, second trimester (principal); Z3A.20 20 weeks gestation of pregnancy
CPT/HCPCS: 82570; 84156

== ENCOUNTER 2025-05-28 16:29 | Observation (INO) | payer MEDICAID, SELFPAY ==
--- OUTSIDE RECORDS SUMMARY | 2025-05-17 07:12 | XMS_ITS | Encounter Summary ---
Author Organization [facility] tem Address [id number] [address] [place] [address] Care Team Providers Care Clinical Rn Manager Name Role Phone Services, [facility] Primary Care Provider Reason for Referral * Diagnostic Imaging (Routine) - Pending Review Specialty Diagnoses / Procedures Referred By Contac t Referred To Contact Maternal and Medicine Diagnoses Hypertension affecting in second trimester Procedures US MFM with or without consult Israel Broderick DO [address] [place] [address] Phone: tel: fax: Maternal- Medicine at [address] [address] Phone: tel: fax: Referral ID Status Reason Start Date Expiration Date V isits Requested Visits Authorized [id number] Pending Review 04/19/2025 04/19/2026 1 1 Reason for Visit * Diagnostic Imaging (Routine) - Pending Review Specialty Diagnoses / Procedures Referred By Contac t Referred To Contact Maternal and Medicine Diagnoses Hypertension affecting in second trimester Procedures US MFM with or without consult Israel Broderick DO [address] [place] [address] Phone: tel: fax: Maternal- Medicine at [address] [place] [address] Phone: tel: fax: Referral ID Status Reason Start Date Expiration Date V isits Requested Visits Authorized [id number] Pending Review 04/19/2025 04/19/2026 1 1 Encounter Details Date Type Department Care Team (Latest Contact Info) Description 05/17/2025 7:12 AM EDT - 05/17/2025 11:59 PM EDT Hospital Encounter [facility] US Imaging [address] [place] [address] Hypertension affecting in second trimester [...] mg total) by mouth in the morning. magnesium oxide (MAGOX) 400 mg tablet Take 1 tablet (400 mg total) by mouth in the morning. 115/iron/folic acid ( 19 ORAL) Take 1 tablet by mouth in the morning. sertraline (ZOLOFT) 25 mg tablet Take 2 tablets (50 mg total) by mouth before bedtime. 11/06/2024 cholecalciferol 10 mcg (400 unit) tablet 2 tablets (800 Units total) in the morning. 01/26/2024 clobetasoL (TEMOVATE) 0.05 % ointmentIndication s:Acute palmoplantar pustular psoriasis,Chronic hypertension affecting ,20 weeks gestation of Apply a thin layer to the affected areas twice daily. 30 g 05/17/2025 NIFEdipine XL (PROCARDIA XL) 30 mg 24 [...] (50 mg total) by mouth before bedtime. documented as of this encounter Plan of Treatment Upcoming Encounters Date Type Department Care Team (Late st Contact Info) Description 06/18/2025 8:00 AM EDT Appointment [facility] - Ultrasound [address] [place] [address] 06/18/2025 2:00 PM EDT Telemedicine Maternal- Medicine at [facility] [address] [place] [address] Sheila Cruz MD [address] [facility] 1st [place] [address] documented as of this encounter Procedures Procedure Name Priority Date/Time Associated Diagnosis Comments [facility] COMPREHENSIVE ANATOMIC SURVEY Routine 05/17/2025 9:10 AM EDT Hypertension affecting in second trimester documented in this encounter Results * [facility] COMPREHENSIVE ANATOMIC SURVEY (05/17/2025 9:10 AM EDT) Anatomical Region Laterality Modality OB-MACHINE SAND MIXER Ultrasound 05/17/2025 7:47 AM EDT Narrative 05/17/2025 4:39 PM EDT NAME: PAULA HUGHES : 1990 SEX: F Accession Number: [id number] ORDERING PHYSICIAN: ISRAEL BRODERICK REFERRING PHYSICIAN: ISRAEL BRODERICK Coding ----- --------- Procedures [id number]: Ultrasound, uterus, real time with image documentation, and maternal evaluation plus detailed anatomic examination, transabdominal approach;single or first gestation [id number]: Ultrasound, uterus, real time with image documentation, transvaginal Indication ----- --------- Screening for Anatomic Survey , Screening for cervical length , Anxiety , Depression , Gestational hypertension without significant proteinuria , Obesity in , History of gestational hypertension. History ----- --------- OB History 2. Para 1 [id number] Maternal Assessment ----- --------- Physical Exam Height [...] EFW (oz) 13 oz EFW by: Hadlock ([id number]) Extended Tibia 23.0 mm 18w 1d 2% [...] Heart/Thorax: RVOT view. LVOT view. 3-vessel view. 7-hkikvl-fkgumsm view. Situs. Bicaval view. Cardiac position. Cardiac [...] cyst noted. Recommendations ----- --------- Please see [facility] documentation from today. The patient is scheduled in four to six week(s) to complete anatomic survey. Subsequent follow up or other follow up as clinically determined by primary OB provider unless otherwise specified by [facility]. Results forwarded to ordering provider so they can follow up with the patient as necessary. Procedure Note Sheila Cruz MD - 05/17/2025 NAME: PAULA HUGHES : 1990 SEX: F Accession Number: [id number] ORDERING PHYSICIAN: ISRAEL BRODERICK REFERRING PHYSICIAN: ISRAEL BRODERICK Coding ----- --------- Procedures [id number]: Ultrasound, uterus, real time with imagedocumentation, and maternal evaluation plus detailed anatomic examination, transabdominalapproach;single or first gestation [id number]: Ultrasound, uterus, real time with imagedocumentation, transvaginal Indication ----- --------- Screening for Anatomic Survey , Screening for cervical length , Anxiety ,Depression , Gestational hypertension without significant proteinuria , Obesity in , History of gestationalhypertension. History ----- --------- OB History 2. Para 1 [id number] Maternal Assessment ----- --------- Physical Exam Height [...] EFW (oz) 13 oz EFW by: Hadlock ([id number]) Extended Tibia 23.0 mm 18w 1d 2% [...] Heart/Thorax: RVOT view. LVOT view. 3-vessel view. 5-mulget-pjaybtg view.Situs. Bicaval view. Cardiac position. Cardiac axis. [...] cyst noted. Recommendations ----- --------- Please see [facility] documentation from today. The patient is scheduled in four to six week(s) to complete anatomicsurvey. Subsequent follow up or other follow up as clinically determined byprimary OB provider unless otherwise specified by [facility]. Results forwarded to ordering provider so they can follow up with thepatient as necessary. us Israel Broderick DO [facility] US ORDERABLES Final Result documented in this encounter Visit Diagnoses Diagnosis Hypertension affecting in second trimester documented in this encounter Care Teams Clinical Rn Manager Relationship Specialty Start Date End Date [address] PCP - General Family Medicine 11/03/24 documented as of this encounter
--- OUTSIDE RECORDS SUMMARY | 2025-05-17 09:00 | XMS_ITS | Encounter Summary ---
Author Organization [facility] tem Address [id number] [address] [place] [address] Care Team Providers Care Gut Carrier Name Role Phone Services, [facility] Primary Care Provider Reason for Visit * Reason Comments gHTN PCOS Encounter Details Date Type Department Care Team (Late st Contact Info) Description 05/17/2025 9:00 AM EDT Office Visit Maternal- Medicine at [facility] [address] [place] [address] Clair Hare MD [address] [facility], [address] [place] [address] Sheila Cruz MD [address] [facility] [address] [place] [address] Chronic hypertension affecting (Primary Dx); Acute palmoplantar pustular psoriasis; Severe obesity due to excess calories affecting , antepartum ([facility]); 20 weeks gestation of Social History Tobacco [...] No Have you been seen here at [facility] in a previous ? No Recent ER visits or hospitalizations? Yes, for slicing thumb on mandolin Bring blood sugar log or meter with you today? (Please bring them with you for every visit at [facility]) N/A Flu vaccine (Jun-October)? N/A Any concerns [...] recommended threshold of 160/110. Referenc e: PMID: [id number], 2021. Blood pressures do increase as progresses [...] for preeclampsia preventionas is recommended by the [place] [employer]ne[employer] Committee Opinion No. 743. Higher doses (150mg) have been studied, but utilized a screening strategy that is not widely performed in the [facility] (serum analytes and uterine artery Doppler), [...] ultrasound, attempt completion in 4 weeks through [facility] serial growth ultrasounds every 4 weeks following [...] patient is in complete care of her front end driver. Patient does have ultrasound and office visit scheduled with us. Thank you for allowing me to participate in the care of Chayo Ramires. If there any questions please do not hesitate to contact us. Sheila Cruz MD Maternal- Medicine [facility] [address] [facility] 1st [place] [address] This document was created with StemSave technology. Though I make every effort to review the dictation as it is transcribed, on occasion the spoken word can be misinterpreted by the technology leading to inappropriate words, phrases, or sentences. This note is addressed to the requesting provider as a consultation for clinical guidance. Specificmedical abbreviations are occasionally used and those are generally approved by the [place]?Board of?Obstetrics and?Gynecology?as well as?Rama???s abbreviations. The above plan of care was based solely on the diagnoses for which a consultation was requested. ?More frequent testing may be indicated based on her other medical/obstetrical conditions. The management of other or medical conditions is beyond the scope of requested consultation and will c ontinue to be followed by the primary front end driver or primary care provider. Note to patient: [...] Blood drawn for cell-free DNA testing per [facility] phlebotomy. Patient tolerated well. documented in this encounter Plan of Treatment Upcoming Encounters Date Type Department Care Team (Late st Contact Info) Description 06/18/2025 8:00 AM EDT Appointment [facility] - Ultrasound [address] [place] [address] 06/18/2025 2:00 PM EDT Telemedicine Maternal- Medicine at [facility] [address] [place] [phone] Sheila Cruz MD [address] [facility] 1st [place] [address] Scheduled Orders Name Type Priority Associated Diagnoses [...] 46 <=100 pg/mL 05/17/2025 11:13 AM EDT [facility] Blood Venous blood / Unknown Venipuncture / Unknown 05/17/2025 9:54 AM EDT 05/17/2025 9:54 AM EDT us Sheila Cruz MD LAB BLOOD ORDERABLES Final Resul t [facility] [address] [place] [address], documented in this encounter Visit Diagnoses Diagnosis Chronic 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 Severe obesity due to excess calories affecting , antepartum ([facility]) 20 weeks gestation of documented in this encounter Care Teams Gut Carrier Relationship Specialty Start Date End Date [facility], [facility] [address] [place], [place] PCP - General Family Medicine 11/03/24 documented as of this encounter
--- OUTSIDE RECORDS SUMMARY | 2025-05-23 14:30 | XMS_ITS | Encounter Summary ---
Author Organization [facility] Address [address] [place] [address] Care Team Providers Care Wire Walker Name Role Phone Judy Caal Unavailable Unavailable Reason for Visit * Reason Comments Routine Visit Encounter Details Date Type Department Care Team (Late st Contact Info) Description 05/23/2025 2:30 PM EDT Routine [facility] [place] [facility] [address] [place] [address] Rosie Qiu, MARKET RESEARCH SPECIALIST [address] [place] [address] Second trimester ([facility]); 21 weeks gestation of ([facility]); induced hypertension, antepartum ([facility]); Vitamin D deficiency; H/O pre-eclampsia in prior , currently ([facility]) Social History Tobacco Use Types Packs/Day Years [...] Sign Reading Time Taken Comments Blood Pressure 142/82 05/23/2025 3:07 PM EDT Pulse - - Temperature - - Respiratory Rate - - Oxygen Saturation - - Inhaled Oxygen Concentration - - Weight 128 kg (283 lb) 05/23/2025 3:07 PM EDT Height - - Body Mass Index 43.03 06/11/2024 2:39 PM EDT documented in this encounter Plan of Treatment Upcoming Encounters Date Type Department Care Team (Late st Contact Info) Description 05/30/2025 3:20 PM EDT Routine [facility] [address] [place] [address] [place] [phone] Rosie Qiu, MARKET RESEARCH SPECIALIST [address] [place] [phone] 06/24/2025 1:50 PM EST Routine [facility] [address] [place] [address] [place] [phone] Caesar Broderick, DO [address] [place] [address] 12/16/2025 3:00 PM EDT Office Visit [facility] [place] [phone] Caesar Broderick, DO [address] [place], [place] [phone] documented as of this encounter Visit Diagnoses Diagnosis Second trimester ([facility]) state, incidental 21 weeks gestation of ([facility]) induced hypertension, antepartum ([facility]) Transient hypertension of , antepartum Vitamin D deficiency H/O pre-eclampsia in prior , currently ([facility]) documented in this encounter Care Teams Wire Walker Relationship Specialty Start Date End Date Judy Caal PCP - [facility] RECREATIONAL THERAPY TECHNICIAN 02/20/24 documented as of this encounter
--- OUTSIDE RECORDS SUMMARY | 2025-05-28 16:33 | XMS_ITS | Clinical Summary ---
Author Organization [facility] Address [address] [place] [address] Phone Care Team Providers Care Furniture Assembler Name Role Phone June Trinidad LPN Unavailable [...] age to complete this topic Insurance [address] [place] [id number] [employer] MEDICAID [address] [place] [id number] [facility] [place] [address] Care Teams Furniture Assembler Relationship Specialty Start Date End Date June Trinidad LPN Licensed Practical Nurse Reproductive Endocrinology and Infertility 01/01/25
--- OUTSIDE RECORDS SUMMARY | 2025-05-28 16:33 | XMS_ITS | Encounter Summary ---
Author Organization [facility] Address [address] [place] [address] Care Team Providers Care Hairspring Assembler Name Role Phone Judy Caal Unavailable Unavailable Encounter Details Date Type Department Care Team (Late st Contact Info) Description 05/20/2025 Abstract LIANA HEAD [address] [facility] [place] [address] Tsering Willingham MA Social History Tobacco [...] 3:20 PM EDT Routine NOMTrent HEAD [address] [place] [address] Rosie Qiu, JEM [address] [facility] [place] [address] 06/24/2025 1:50 PM EST Routine LIANA HEAD [address] [facility] [place] [address] Caesar Broderick DO [address] [place] [address] 12/16/2025 3:00 PM EDT Office Visit NOMTrent HEAD [address] [facility] [place] [address] Caesar Broderick DO [address] [facility] [place] [address] documented as of this encounter Visit Diagnoses Not on filedocumented in this encounter Care Teams Hairspring Assembler Relationship Specialty Start Date End Date Judy Caal PCP - NOMS Rosey PLASTER FOREMAN 02/20/24 documented as of this encounter
--- OUTSIDE RECORDS SUMMARY | 2025-05-28 16:33 | XMS_ITS | Encounter Summary ---
Author Organization [facility] Address [address] [place] [address] Care Team Providers Care Circulation Crew Leader Name Role Phone Judy Caal Unavailable Unavailable Reason for Visit * Reason Comments Med Refill Encounter Details Date Type Department Care Team (Late st Contact Info) Description 05/15/2025 Refill N[facility]rent HEAD [address] [place] [address] Caesar Broderick DO [address] [place] [address] Second trimester ([facility]); Gestational hypertension, antepartum ([facility]) Social History Tobacco Use Types Packs/Day [...] Routine NOMS Gali HEAD [address] [place] [address] Rosie Qiu, STREAM CONTROL OFFICER [address] [facility] [place] [address] 06/24/2025 1:50 PM EST Routine NOMS Gali [address] [place] [address] Caesar Broderick, DO [address] [facility] [place] [address] 12/16/2025 3:00 PM EDT Office Visit NOMTrent HEAD [address] [place] [address] [place] [address] Caesar Broderick, DO [address] [facility] [place] [address] documented as of this encounter Visit Diagnoses Diagnosis Second trimester ([facility]) state, incidental Gestational hypertension, antepartum ([facility]) documented in this encounter Care Teams Circulation Crew Leader Relationship Specialty Start Date End Date Judy Caal PCP - [facility] Rosey [facility] 02/20/24 documented as of this encounter
--- OUTSIDE RECORDS SUMMARY | 2025-05-28 16:33 | XMS_ITS | Encounter Summary ---
Author Organization [facility] Address [address] [place] [address] Care Team Providers Care Dental Hygiene Teacher Name Role Phone Judy Caal Unavailable Unavailable Encounter Details Date Type Department Care Team (Late st Contact Info) Description 05/23/2025 Clinisync Result Encounter NOMS External Department Unsolicited Caesar Broderick, DO [address] [place], [facility] Social History Tobacco Use Types Packs/Day Years [...] 3:20 PM EDT Routine NOMS Aman HEAD [address] [place], [place] [address] [address] Rosie Qiu, JEM [address] [place] [address] 06/24/2025 1:50 PM EST Routine NOMTrent HEAD [address] [place] [address] Caesar Broderick, [address] [place], [place] [address] 12/16/2025 3:00 PM EDT Office Visit [facility]S Aman OBGYN [address] [place] [address] Caesar Broderick, [address] [facility] [address] [place], [place] [address] documented as of this encounter Procedures Procedure Name Priority Date/Time Associated Diagnosis Comments AFP, SERUM, OPEN SPINA BIFIDA Routine 05/23/2025 2:30 PM EDT documented in this encounter Results * AFP, SERUM, OPEN SPINA BIFIDA (05/23/2025 2:30 PM EDT) RESULTS Report . [facility] TEST RESULTS: *Screen Negative* . [facility] GEST. AGE ON COLLECTION DATE 21.1 . weeks [facility] GESTAT. AGE BASED ON LMP . [facility] Comment: Recalculations are not recommended when gestational dating by LMP and ultrasound are within 10 days. [age] AT PETROS [age] . [age] [facility] RACE . [facility] WEIGHT 282 . lbs [facility] INSULIN DEP DIABETES No . [facility] MULTIPLE GESTATION No . [facility] AFP VALUE 38.2 . ng/mL [facility] AFP MOM 0.85 . [facility] [place] [address] . [facility] INTERPRETATION Comment . [facility] Comment: Interpretation: Screen Negative This [...] Customer Services to discuss available options. The [place] [employer] recommends amniocentesis be offered to women age 35 and older. COMMENT: Comment . [facility] Comment: Gema Ortez, Ph.D., [facility] Director References: Available Upon Request. Multiples Of Median Cutoffs For AFP Elevations Kumar 2.5 Black 2.8 IDD 2.0 Twins 4.5 Abbreviation Definitions IDD - Insulin Dep Diabetes OSBR - Open Spina Bifida Risk For further inquiries contact [facility] at [phone]. This test was developed and its performance characteristics determined by [employer]. It has not been cleared or approved by the Food and Drug Administration. Performed at: - [facility] [address] [facility], [place], [place] [id number] Warehouse Order Filler: Jesus Saleh [facility], Phone: [phone] 05/23/2025 2:30 PM EDT 05/23/2025 2:40 PM EDT Narrative [facility] - 05/25/2025 1:07 AM EDT N N LMP [id number] 2 9 N 1 282 [address] N N N N White/ us Caesar Davie DO LAB BLOOD ORDERABLES Final Resul t [facility] documented in this encounter Visit Diagnoses Not on filedocumented in this encounter Care Teams Dental Hygiene Teacher Relationship Specialty Start Date End Date Judy Caal PCP - [facility]OMS Rosey CONTRACT ENGINEER 02/20/24 documented as of this encounter
--- OUTSIDE RECORDS SUMMARY | 2025-05-28 16:33 | XMS_ITS | Encounter Summary ---
Author Organization [facility] Address [address] [place] [address] Care Team Providers Care Entry Level Name Role Phone Judy Caal Unavailable Unavailable Encounter Details Date Type Department Care Team (Late st Contact Info) Description 05/28/2025 Telephone [facility] A[facility] OBGYN [address] [place] [address] Melanie Almaraz MA [address] [email or web address] [address] Social History Tobacco Use Types Packs/Day Years [...] encounter Miscellaneous Notes * Telephone Encounter - Melanie Almaraz MA - 05/28/2025 3:24 PM EDT Pt called left message that she is having high blood pressure results all day. Pt stated in her message they have been around 150/90 all morning and afternoon. Pt also complained in her message of having lower/middle back pain along w/racing heartbeat. Wanted to know what she should do? Or should she just wait until when she has her OB visit? I tried reaching patient and was sent to . Left detailed message that anytime she is having elevated B/P she is to go to the hospital not wait to call our office. Being and having those symptoms of elevated b/p, continued back pain and racing heart she is to go and get evaluated. Will try to make contact again w/patient later in the day to see if she went to get checked out. documented in this encounter Plan of Treatment Upcoming Encounters Date Type Department Care Team (Late st Contact Info) Description 05/30/2025 3:20 PM EDT Routine [facility] HEAD [address] [facility] [facility] [address] Rosie Qiu, [employer] WEAPONS SERGEANT [address] [facility] [place] [address] 06/24/2025 1:50 PM EST Routine NOMTrent HEAD [address] [place] [address] Caesar Broderick, DO [address] [place] [address] 12/16/2025 3:00 PM EDT Office Visit LIANA HEAD [address] [place] [address] Caesar Broderick, DO [address] [place] [address] documented as of this encounter Visit Diagnoses Not on filedocumented in this encounter Care Teams Entry Level Relationship Specialty Start Date End Date Judy Caal PCP - [facility]OM[facility] Rosey DISMANTLER 02/20/24 documented as of this encounter
--- OUTSIDE RECORDS SUMMARY | 2025-05-28 16:33 | XMS_ITS | Encounter Summary ---
Author Organization [facility] Address [address] [place] [address] Care Team Providers Care Ornamental Bronze Worker Name Role Phone Judy Caal Unavailable Unavailable Encounter Details Date Type Department Care Team (Late st Contact Info) Description 04/26/2025 Abstract LIANA HEAD [address] [facility] [place] [address] Tsering Willingham MA Social History Tobacco [...] 3:20 PM EDT Routine NOMTrent HEAD [address] [place] [address] Rosie Qiu, JEM [address] [facility] [place] [address] 06/24/2025 1:50 PM EST Routine LIANA HEAD [address] [facility] [place] [address] Caesar Broderick DO [address] [place] [address] 12/16/2025 3:00 PM EDT Office Visit NOM[facility]rent HEAD [address] [facility] [place] [address] Caesar Broderick DO [address] [facility] [place] [address] documented as of this encounter Visit Diagnoses Not on filedocumented in this encounter Care Teams Ornamental Bronze Worker Relationship Specialty Start Date End Date Judy Caal PCP - [facility] Rosey MORTGAGE OPERATIONS MANAGER 02/20/24 documented as of this encounter
--- OUTSIDE RECORDS SUMMARY | 2025-05-28 16:33 | XMS_ITS | Encounter Summary ---
Author Organization [facility] Address [address] [place] [address] Care Team Providers Care Catalogue Illustrator Name Role Phone Judy Caal Unavailable Unavailable Encounter Details Date Type Department Care Team (Late st Contact Info) Description 01/03/2025 Abstract LIANA HEAD [address] [facility] [place] [address] Tsering Willingham [place] Social History Tobacco [...] 3:20 PM EDT Routine LIANA HEAD [address] [facility] [place] [address] Rosie Qiu, JEM [address] [facility] [place] [phone] 06/24/2025 1:50 PM EST Routine LIANA HEAD [address] [place] [address] Caesar Broderick DO [address] [facility] [address] [place], [place] [phone] 12/16/2025 3:00 PM EDT Office Visit LIANA [place] OBGYN [address] [facility] [place] [phone] Caesar Broderick DO [address] [facility] [place] [address] documented as of this encounter Visit Diagnoses Not on filedocumented in this encounter Care Teams Catalogue Illustrator Relationship Specialty Start Date End Date Judy Caal PCP - [facility] Rosey PLUG SAW OPERATOR 02/20/24 documented as of this encounter
--- OUTSIDE RECORDS SUMMARY | 2025-05-28 16:33 | XMS_ITS | Encounter Summary ---
Author Organization [facility] Address [address] [place] [address] Care Team Providers Care Frame Table Operator Helper Name Role Phone Judy Caal Unavailable Unavailable Encounter Details Date Type Department Care Team (Late st Contact Info) Description 06/21/2024 Abstract LIANA HEAD [address] [facility] [place] [address] Caesar Broderick DO [address] [facility] [address] [place], [facility] Social History Tobacco Use Types Packs/Day Years [...] 3:20 PM EDT Routine NOMTrent HEAD [address] [place] [address] Rosie Qiu, JEM [address] [place] [address] 06/24/2025 1:50 PM EST Routine LIANA HEAD [address] [place] [address] Caesar Broderick DO [address] [place] [place], [facility]11 12/16/2025 3:00 PM EDT Office Visit LIANA HEAD [address] [facility] [place] [address] Caesar Broderick DO [address] [facility] [place] [address] documented as of this encounter Visit Diagnoses Not on filedocumented in this encounter Care Teams Frame Table Operator Helper Relationship Specialty Start Date End Date Judy Caal PCP - [facility] Rosey CAPACITY PLANNING MANAGER 02/20/24 documented as of this encounter
--- OUTSIDE RECORDS SUMMARY | 2025-05-28 16:33 | XMS_ITS | Encounter Summary ---
Author Organization [facility] tem Address [id number] [address] [place] [address] Care Team Providers Care Head Boys Golf Coach Name Role Phone Services, [facility] Primary Care Provider Encounter Details Date Type Department Care Team (Late Contact Info) Description 05/24/2025 Orders Only Maternal- Medicine at [facility] [address] [place] [phone] Bethany Lundy LPN Acute palmoplantar pustular psoriasis; Chronic hypertension affecting ; Severe obesity due to excess calories affecting , antepartum ([facility]); Hypertension affecting in second trimester Social History [...] Info) Description 06/18/2025 8:[address] [facility] - Ultrasound [address] [place] [phone] 06/18/2025 2:00 PM EDT Telemedicine Maternal- Medicine at [facility] [address] [place] [phone] Sheila Cruz MD [address] [facility] 1st [place] [address] documented as of this encounter Procedures Procedure [...] trimester documented in this encounter Care Teams Head Boys Golf Coach Relationship Specialty Start Date End Date Services, [facility] [address] [facility] [address] [place] [place] PCP - General Family Medicine 11/03/24 documented as of this encounter
--- OUTSIDE RECORDS SUMMARY | 2025-05-28 16:33 | XMS_ITS | Encounter Summary ---
Author Organization [facility] Address [address] [place] [address] Care Team Providers Care Cookie Mixer Helper Name Role Phone Judy Caal Unavailable Unavailable Encounter Details Date Type Department Care Team (Late st Contact Info) Description 07/05/2024 Abstract LIANA HAED [address] [facility] [place] [address] Karoline Casillas LPN Social History Tobacco [...] 3:20 PM EDT Routine LIANA HEAD [address] [facility] [place] [address] Rosie Qiu, JEM [address] [facility] [place] [address] 06/24/2025 1:50 PM EST Routine LIANA HEAD [address] [facility] [place] [address] Caesar Broderick DO [address] [facility] [address] [place], [place] [phone] 12/16/2025 3:00 PM EDT Office Visit LIANA LAWSONGYN [address] [facility] [place] [address] Caesar Broderick DO [address] [facility] [place] [address] documented as of this encounter Visit Diagnoses Not on filedocumented in this encounter Care Teams Cookie Mixer Helper Relationship Specialty Start Date End Date Judy Caal PCP - [facility] Rosey FLYING INSTRUCTOR 02/20/24 documented as of this encounter
--- OUTSIDE RECORDS SUMMARY | 2025-05-28 16:33 | XMS_ITS | Encounter Summary ---
Author Organization [facility] Address [address] [place] [address] Care Team Providers Care Service And Repair Supervisor Name Role Phone Judy Caal Unavailable Unavailable [...] 05/30/2025 3:20 PM EDT Routine LIANA HEAD [address] [place] [address] [place] [phone] Rosie Qiu, POWER GENERATION ENGINEER [address] [facility] [place] [address] 06/24/2025 1:50 PM EST Routine LIANA HEAD [address] [facility] [phone] Caesar Broderick DO [address] [facility] [place] [address] 12/16/2025 3:00 PM EDT Office Visit LIANA HEAD [address] [place] [address] Caesar Broderick, [address] [facility] [place] [address] documented as of this encounter Visit Diagnoses Not on filedocumented in this encounter Care Teams Service And Repair Supervisor Relationship Specialty Start Date End Date Judy Caal PCP - [facility] Rosey MINIBUS DRIVER 02/20/24 documented as of this encounter
--- OUTSIDE RECORDS SUMMARY | 2025-05-28 16:33 | XMS_ITS | Encounter Summary ---
Author Organization [facility] tem Address [id number] [address] [place] [address] Care Team Providers Care Leasing Agent Name Role Phone Services, [facility] Primary Care Provider Encounter Details Date Type Department Care Team (Late Contact Info) Description 03/21/2024 Orders Only [facility] [address] [place] [address] [place] [address] External, Scanning Provider Social History [...] Info) Description 06/18/2025 8:00 AM EDT Appointment [facility] - Ultrasound [address] [place] [phone] 06/18/2025 2:00 PM EDT Telemedicine Maternal- Medicine at [facility] [address] [place] [address] Sheila Cruz MD [address] 1st [place] [address] documented as of this encounter Procedures Procedure Name Priority Date/Time Associated Diagnosis Comments MULTIPLE LABS Routine 03/21/2024 11:19 AM EDT LIPID PROFILE Routine 03/21/2024 documented in this encounter Results * Multiple labs (03/21/2024 11:19 AM EDT) us Scanning Provider External [place] [facility] Final Result MANUALLY TRANSCRIBED RESULTS * [...] on filedocumented in this encounter Care Teams Leasing Agent Relationship Specialty Start Date End Date Services, [facility] [address] [place] PCP - General Family Medicine 11/03/24 documented as of this encounter
--- OUTSIDE RECORDS SUMMARY | 2025-05-28 16:33 | XMS_ITS | Encounter Summary ---
Author Organization [facility] tem Address [id number] [address] [place] [address] Care Team Providers Care Ground Crewman Aircraft Support Name Role Phone Services, [facility] Primary Care Provider Encounter Details Date Type Department Care Team (Late Contact Info) Description 05/24/2025 Orders Only Maternal- Medicine at [facility] [address] [place] [phone] Bethany Lundy LPN Acute palmoplantar pustular psoriasis [...] Info) Description 06/18/2025 8:00 AM EDT Appointment [facility] - Ultrasound [address] [place] [phone] 06/18/2025 2:00 PM EDT Telemedicine Maternal- Medicine at [facility] [address] [place] [address] Sheila Cruz MD [address] [facility] 1st [place] [address] documented as of this encounter Results * [...] trimester documented in this encounter Care Teams Ground Crewman Aircraft Support Relationship Specialty Start Date End Date Services, [facility] [address] [place], [place] PCP - General Family Medicine 11/03/24 documented as of this encounter
--- OUTSIDE RECORDS SUMMARY | 2025-05-28 16:33 | XMS_ITS | Encounter Summary ---
Author Organization [facility] Address [address] [facility] [place] [address] Care Team Providers Care Hat Blocking Operator Name Role Phone Judy Caal Unavailable Unavailable Encounter Details Date Type Department Care Team (Late st Contact Info) Description 05/17/2025 External Result Encounter NOMS Aman HEAD [address] [place] [address] Israel Broderick DO [address] [place], [facility] Social History Tobacco Use Types Packs/Day [...] Routine NOMS Aman HEAD [address] [place] [address] Rosie Qiu, JEM [address] [place] [address] 06/24/2025 1:50 PM EST Routine NOMTrent HEAD [address] [place] [address] Israel Broderick, DO [address] [facility] [address] [place], [place] [address] 12/16/2025 3:00 PM EDT Office Visit NOMS Aman LAWSONGYN [address] [facility] [place] [address] Israel Broderick, DO [address] [facility] [place] [address] documented as of this encounter Procedures Procedure Name Priority Date/Time Associated Diagnosis Comments US OB 14+ WEEKS ANATOMY SCAN 05/17/2025 4:39 PM EDT documented in this encounter Results * US OB 14+ weeks anatomy scan (05/17/2025 4:39 PM EDT) Anatomical Region Laterality Modality Body Ultrasound 05/17/2025 4:39 PM EDT Narrative 05/17/2025 4:39 PM EDT THIS EXAM WAS PERFORMED AT [facility] NAME: PAULA HUGHES : 1990 SEX: F Accession Number: [id number] ORDERING PHYSICIAN: ISRAEL BRODERICK REFERRING PHYSICIAN: ISRAEL BRODERICK Coding ----- --------- Procedures 19872: Ultrasound, uterus, real time with image documentation, and maternal evaluation plus detailed anatomic examination, transabdominal approach;single or first gestation 22536: Ultrasound, uterus, real time with image documentation, transvaginal Indication ----- --------- Screening for Anatomic Survey , Screening for cervical length , Anxiety , Depression , Gestational hypertension without significant proteinuria , Obesity in , History of gestational hypertension. History ----- --------- OB History 2. Para 1 [id number] Maternal Assessment ----- --------- Physical Exam Height [...] EFW (oz) 13 oz EFW by: Hadlock ([id number]) Extended Tibia 23.0 mm 18w 1d 2% [...] Heart/Thorax: RVOT view. LVOT view. 3-vessel view. 6-lluvoq-hgzcuug view. Situs. Bicaval view. Cardiac position. Cardiac [...] - 05/17/2025 THIS EXAM WAS PERFORMED AT [facility] NAME: PAULA HUGHES : 1990 SEX: F Accession Number: [id number] ORDERING PHYSICIAN: ISRAEL BRODERICK REFERRING PHYSICIAN: ISRAEL BRODERICK Coding ----- --------- Procedures 78765: Ultrasound, uterus, real time with imagedocumentation, and maternal evaluation plus detailed anatomic examination, transabdominalapproach;single or first gestation 99434: Ultrasound, uterus, real time with imagedocumentation, transvaginal Indication ----- --------- Screening for Anatomic Survey , Screening for cervical length , Anxiety ,Depression , Gestational hypertension without significant proteinuria , Obesity in , History of gestationalhypertension. History ----- --------- OB History 2. Para 1 [id number] Maternal Assessment ----- --------- Physical Exam Height [...] EFW (oz) 13 oz EFW by: Hadlock ([id number]) Extended Tibia 23.0 mm 18w 1d 2% [...] Heart/Thorax: RVOT view. LVOT view. 3-vessel view. 3-epvppb-ppofmse view.Situs. Bicaval view. Cardiac position. Cardiac axis. [...] byprimary OB provider unless otherwise specified by [facility]. Results forwarded to ordering provider so they can follow up with thepatient as necessary. us Israel FRASER OB US PROCEDURES Final Resul t documented in this encounter Visit Diagnoses Not on filedocumented in this encounter Care Teams Hat Blocking Operator Relationship Specialty Start Date End Date Judy Caal PCP - [facility] Rosey FOOD AND BEVERAGE SERVER 02/20/24 documented as of this encounter
--- OUTSIDE RECORDS SUMMARY | 2025-05-28 16:33 | XMS_ITS | Encounter Summary ---
Author Organization [facility] Address [address] [place] [address] Care Team Providers Care Financial Wellness Coach Name Role Phone Judy Caal Unavailable Unavailable Encounter Details Date Type Department Care Team (Late st Contact Info) Description 12/25/2024 Orders Only NOMTrent HEAD [address] [facility] [place] [address] Luz Marina Velez LPN [address] [facility] [place], [facility]11 Social History Tobacco Use Types Packs/Day [...] PM EDT Routine NOMS Aman HEAD [address] [facility] [place] [address] Rosie Qiu, JEM [address] [place] [address] 06/24/2025 1:50 PM EST Routine NOMS Aman HEAD [address] [facility] [place] [address] Caesar Broderick DO [address] [facility] [address] [place], [place] [phone] 12/16/2025 3:00 PM EDT Office Visit LIANA [place] OBGYN [address] [facility] [place] [address] Caesar Broderick DO [address] [facility] [place] [address] documented as of this encounter Procedures Procedure Name Priority Date/Time Associated Diagnosis Comments PAP SMEAR Routine 12/10/2024 12:00 AM EDT documented in this encounter Results * Pap Smear (12/10/2024 12:00 AM EDT) Swab Cervical swab / Unknown [place] Nurse [facility] Ob LAB CYTOLOGY ORDERABLES Final Result EXTERNAL LAB documented in this encounter Visit Diagnoses Not on filedocumented in this encounter Care Teams Financial Wellness Coach Relationship Specialty Start Date End Date Judy Caal PCP - [facility] Rosey MINUTE CLERK 02/20/24 documented as of this encounter
--- OUTSIDE RECORDS SUMMARY | 2025-05-28 16:33 | XMS_ITS | Encounter Summary ---
Author Organization [facility] Address [address] [facility] [place] [address] Care Team Providers Care Pinball Machine Repairer Name Role Phone Judy Caal Unavailable Unavailable Encounter Details Date Type Department Care Team (Late st Contact Info) Description 05/15/2025 Telephone NOMS Aman OBGYN [address] [place] [address] Caesar Broderick DO [address] [place] [address] Social History Tobacco Use Types Packs/Day Years [...] Bethany calling from [facility] over at [facility], I was just calling on Chayo Ramires. [...] quick call. My direct phone number is [phone]. Thanks so much, sulystephen thien. Called and spoke with Bethany and advised that on patient OB Flow sheet she did decline the [place] testing. Bethany voiced understanding and not further needs. documented in this encounter Plan of Treatment Upcoming Encounters Date Type Department Care Team (Late st Contact Info) Description 05/30/2025 3:20 PM EDT Routine NOMS Aman OBGYN [address] [place] [address] Rosie Qiu, GENERAL DENTIST/OWNER [address] [place] [address] 06/24/2025 1:50 PM EST Routine NOMS Aman OBGYN [address] [place] [phone] Caesar Broderick, [address] [place] [address] 12/16/2025 3:00 PM EDT Office Visit NOMTrent [place] OBBEN [address] [place] [address] Caesar Broderick, DO [address] [place] [address] documented as of this encounter Visit Diagnoses Not on filedocumented in this encounter Care Teams Pinball Machine Repairer Relationship Specialty Start Date End Date Judy Caal PCP - [facility] Rosey JOY OPERATOR 02/20/24 documented as of this encounter
--- OUTSIDE RECORDS SUMMARY | 2025-05-28 16:33 | XMS_ITS | Encounter Summary ---
Author Organization [facility] Address [address] [facility] [place] [address] Care Team Providers Care Data Management Consultant Name Role Phone Judy Caal Unavailable Unavailable Encounter Details Date Type Department Care Team (Late st Contact Info) Description 05/23/2025 Bamboo flowsheet NOMTrent HEAD [address] [place] [address] Rosie Qiu, HEARING THERAPY TEACHER [address] [place] [address] Social History Tobacco Use Types Packs/Day [...] EDT Routine NOMTrent HEAD [address] [place] [address] Rosie Qiu, JEM [address] [place] [address] 06/24/2025 1:50 PM EST Routine NOMTrent HEAD [address] [place] [address] Caesar Broderick, DO [address] [facility] [place] [address] 12/16/2025 3:00 PM EDT Office Visit NOMTrent HEAD [address] [facility] [place] [address] Caesar Broderick, DO [address] [facility] [place] [address] documented as of this encounter Visit Diagnoses Not on filedocumented in this encounter Care Teams Data Management Consultant Relationship Specialty Start Date End Date Judy Caal PCP - [facility] Rosey SMALL ANIMAL CARETAKER 02/20/24 documented as of this encounter
--- OUTSIDE RECORDS SUMMARY | 2025-05-28 16:34 | XMS_ITS | Clinical Summary ---
Author Organization [facility] tem Address [id number] [address] [place] [address] Care Team Providers Care Entry Level Sales Consultant Name Role Phone Services, [facility] Primary Care Provider Allergies No known active [...] Description 05/24/2025 Orders Only Maternal- Medicine at [place] [address] [place] [address] Bethany Lundy LPN Acute palmoplantar pustular psoriasis; Chronic hypertension affecting ; Severe obesity due to excess calories affecting , antepartum ([facility]); Hypertension affecting in second trimester 05/24/2025 Orders Only Maternal- Medicine at [place] [address] [place] [phone] Bethany Lundy LPN Acute palmoplantar pustular psoriasis (Primary Dx); Chronic hypertension affecting ; Severe obesity due to excess calories affecting , antepartum (CMS-HCC); Hypertension affecting in second trimester 05/17/2025 9:00 AM EDT Office Visit Maternal- Medicine at [place] [address] [place] [address] Clair Hare MD Hamilton, Ira, MD Chronic hypertension affecting (Primary Dx); Acute palmoplantar pustular psoriasis; Severe obesity due to excess calories affecting , antepartum (CMS-HCC); 20 weeks gestation of 05/17/2025 7:12 AM EDT - 05/17/2025 11:59 PM EDT Hospital Encounter [facility] US Imaging [address] [place] [address] Hypertension affecting in second trimester Discharge Disposition: Home 05/17/2025 Results Follow-Up Maternal- Medicine at [facility] [address] [place] [address] Sheila Cruz MD B-type natriuretic peptide 05/17/2025 Orders Only Maternal- Medicine at [facility] [address] [place] [address] Bethany Lunyd LPN Acute palmoplantar pustular psoriasis (Primary Dx); Chronic hypertension affecting ; Severe obesity due to excess calories affecting , antepartum ([facility]); Hypertension affecting in second trimester 05/15/2025 Travel 04/29/2025 6:45 PM EDT - 04/29/2025 7:24 PM EDT Emergency [facility] - Emergency [address] [place] [address] Tian Rodriguez MD Laceration of right thumb without foreign body without damage to nail, initial encounter (Primary Dx) Discharge Disposition: Home 04/29/2025 Travel 04/23/2025 Orders Only Maternal- Medicine at [facility] [address] [place] [address] Ref Prov, Not In System 04/23/2025 Abstract Maternal- Medicine at [facility] [address] [place] [address] Sheila Cruz MD 04/19/2025 Orders Only Maternal- Medicine at [facility] [address] [place] [address] Joann Moise, NING Hypertension affecting in second [...] Info) Description 06/18/2025 8:00 AM EDT Appointment [facility] - Ultrasound [address] [place] [address] 06/18/2025 2:00 PM EDT Telemedicine Maternal- Medicine at [facility] [address] [place] [address] Sheila Cruz MD [address] [facility] 1st [place] [address] Health Maintenance Due Date Last Done Comments [...] due to excess calories affecting , antepartum ([facility]) Hypertension affecting in second trimester PM [...] 46 <=100 pg/mL 05/17/2025 11:13 AM EDT [facility] Blood Venous blood / Unknown Venipuncture / Unknown 05/17/2025 9:54 AM EDT 05/17/2025 9:54 AM EDT us Sheila Cruz MD LAB BLOOD ORDERABLES Final Resul t [facility] [address] [place] [address], [place] [phone] * US [facility] COMPREHENSIVE ANATOMIC SURVEY (05/17/2025 9:10 AM EDT) Anatomical Region Laterality Modality OB-PAINT ROLLER WINDER Ultrasound 05/17/2025 7:47 AM EDT Narrative 05/17/2025 4:39 PM EDT NAME: PAULA HUGHES : 1990 SEX: F Accession Number: [id number] ORDERING PHYSICIAN: ISRAEL BRODERICK REFERRING PHYSICIAN: ISRAEL BRODERICK Coding ----- --------- Procedures 74382: Ultrasound, uterus, real time with image documentation, and maternal evaluation plus detailed anatomic examination, transabdominal approach;single or first gestation [id number]: Ultrasound, uterus, real time with image documentation, transvaginal Indication ----- --------- Screening for Anatomic Survey , Screening for cervical length , Anxiety , Depression , Gestational hypertension without significant proteinuria , Obesity in , History of gestational hypertension. History ----- --------- OB History 2. Para 1 [id number] Maternal Assessment ----- --------- Physical Exam Height [...] EFW (oz) 13 oz EFW by: Hadlock ([id number]) Extended Tibia 23.0 mm 18w 1d 2% [...] Heart/Thorax: RVOT view. LVOT view. 3-vessel view. 7-vjvsgf-bzxnbuj view. Situs. Bicaval view. Cardiac position. Cardiac [...] cyst noted. Recommendations ----- --------- Please see [facility] documentation from today. The patient is scheduled in four to six week(s) to complete anatomic survey. Subsequent follow up or other follow up as clinically determined by primary OB provider unless otherwise specified by [facility]. Results forwarded to ordering provider so they can follow up with the patient as necessary. Procedure Note Sheila Cruz MD - 05/17/2025 NAME: PAULA HUGHES : 1990 SEX: F Accession Number: [id number] ORDERING PHYSICIAN: ISRAEL BRODERICK REFERRING PHYSICIAN: ISRAEL BRODERICK Coding ----- --------- Procedures [id number]: Ultrasound, uterus, real time with imagedocumentation, and maternal evaluation plus detailed anatomic examination, transabdominalapproach;single or first gestation [id number]: Ultrasound, uterus, real time with imagedocumentation, transvaginal Indication ----- --------- Screening for Anatomic Survey , Screening for cervical length , Anxiety ,Depression , Gestational hypertension without significant proteinuria , Obesity in , History of gestationalhypertension. History ----- --------- OB History 2. Para 1 [id number] Maternal Assessment ----- --------- Physical Exam Height [...] EFW (oz) 13 oz EFW by: Hadlock ([id number]) Extended Tibia 23.0 mm 18w 1d 2% [...] Heart/Thorax: RVOT view. LVOT view. 3-vessel view. 3-reiana-sqzeool view.Situs. Bicaval view. Cardiac position. Cardiac axis. [...] thepatient as necessary. us Israel Broderick DO [facility] US ORDERABLES Final Result * Unlisted Lab Test (05/17/2025) Free Cell Dna low risk MANUALLY TRANSCRIBED RESULTS Blood (Arm) 05/17/2025 Sheila Cruz MD LAB BLOOD ORDERABLES Final Resul t Performing Organization Address City/[facility] Co de Phone Number MANUALLY TRANSCRIBED RESULTS [...] Infection and pain Alternatives discussed: No treatment Pelzer protocol: Procedure explained and questions answered to [...] ORDERABLES Alma l Result Performing Organization Address City/[facility] Co de Phone Number MANUALLY TRANSCRIBED RESULTS * APTT (04/17/2025) APTT 26.5 MANUALLY TRANSCRIBED RESULTS Blood Venous blood / Unknown 04/17/2025 us Not In System Ref Prov LAB BLOOD ORDERABLES Alma l Result Performing Organization Address [facility] Phone Number MANUALLY TRANSCRIBED RESULTS * Protime & INR (04/17/2025) Blood Venous blood / Unknown us Not In System Ref Prov LAB BLOOD ORDERABLES Alma l Result Performing Organization Address [facility] Phone Number MANUALLY TRANSCRIBED RESULTS * CBC [...] ORDERABLES Alma l Result Performing Organization Address [facility] Co de Phone Number MANUALLY TRANSCRIBED RESULTS * Hepatitis C(HCV) Ab w/ Reflex to PCR (03/20/2025) Hepatitis C Antibody NON REACTIVE MANUALLY TRANSCRIBED RESULTS Blood Venous blood / Unknown us Not In System Ref Prov LAB BLOOD ORDERABLES Alma l Result Performing Organization Address City/[facility] Co de Phone Number MANUALLY TRANSCRIBED RESULTS [...] ORDERABLES Final Re sult Performing Organization Address City/[facility]/ZIP Co de Phone Number MANUALLY TRANSCRIBED RESULTS * Hepatitis B surface antigen (03/20/2025) Hepatitis B Surface Antigen NEGATIVE MANUALLY TRANSCRIBED RESULTS Blood Venous blood / Unknown us Not In System Ref Prov LAB BLOOD ORDERABLES Alma l Result Performing Organization Address City/[facility]/ZIP Co de Phone Number MANUALLY TRANSCRIBED RESULTS * Type and screen (03/20/2025) Abo/Rh(D) B Positive MANUALLY TRANSCRIBED RESULTS Antibody Screen NEGATIVE MANUALLY TRANSCRIBED RESULTS Blood Venous blood / Unknown us Not In System Ref Prov BLOOD BANK TEST ORDERABLE S Final Result Performing Organization Address City/[facility] Co de Phone Number MANUALLY TRANSCRIBED RESULTS * Hemoglobin A1c (03/20/2025) Hemoglobin A1C 5.1 4.0 - 6.0 % MANUALLY TRANSCRIBED RESULTS Blood Venous blood / Unknown us Scanning Provider External LAB BLOOD ORDERABLES Final Result Performing Organization Address City/[facility] Co de Phone Number MANUALLY TRANSCRIBED RESULTS * Pap Smear (11/23/2022 5:20 AM EDT) 11/23/2022 5:20 AM EDT 11/23/2022 5:29 AM EDT Narrative COPATH - 11/24/2022 1:05 PM EDT [facility] [address] [place] [address] Gynecologic Cytology Consultation Patient Name:ELLEN RAMIRES:1990 (Age: 32)Gender:FTaken:11/23/2022Reported:11/24/2022hysician(s):Bethany Raymundo CNP ([phone])Copy To: Rec. #:[id number]: #[id number] Final Cytologic Interpretation ThinPrep Pap Test (Cervical): Satisfactory for evaluation. A transformation zone component is present. NEGATIVE FOR INTRAEPITHELIAL LESION OR MALIGNANCY. lani/11/24/2022 Interpretation performed at [facility], [address] [place] [address], License number: [id number]. Electronically Signed Out By ZORA Walter(ASCP) Date of Last Menstrual Period: (None Given) Other Clinical Conditions: Z12.4 Screening for malignant neoplasm of cervix Z11.51 Screening for HPV Source of Specimen ThinPrep Pap Test (Cervical) Thin Prep Pap ([facility] ROLLER [facility]ER) Fee Code(s): G0145 us Bethany Raymundo SALES OFFICE ADMINISTRATOR-PASTING MACHINE OFFBEARER PATHOLOGY/CYTOLOGY JYOTSNA STANLEY Final Result COPATH from Last 3 Months or Most Recently Relevant to Health Maintenance Insurance [facility] MEDICAID Care Teams Entry Level Sales Consultant Relationship Specialty Start Date End Date Services, [facility] [address] [place], [place] PCP - General Family Medicine 11/03/24
--- OUTSIDE RECORDS SUMMARY | 2025-05-28 16:34 | XMS_ITS | Encounter Summary ---
Author Organization [facility] tem Address [facility][id number] [address] [place] [address] Care Team Providers Care Sales Consultant Name Role Phone Services, [facility] Primary Care Provider Encounter Details Date Type Department Care Team ([facility] Contact Info) Description 04/23/2025 Orders Only Maternal- Medicine at [facility] [address] [place] [address] Ref Prov, [place] [address] Social History Tobacco Use Types Packs/Day Years [...] Upcoming Encounters Date Type Department Care Team ([facility] Contact Info) Description 06/18/2025 8:00 AM EDT Appointment [facility] - Ultrasound [address] [place] [phone] 06/18/2025 2:00 PM EDT Telemedicine Maternal- Medicine at [facility] [address] [place] [phone] Sheila Cruz MD [address] [place] [address] documented as of this encounter Procedures Procedure Name Priority Date/Time Associated Diagnosis Comments URIC ACID Routine 04/17/2025 1:11 PM EDT BUN Routine 04/17/2025 CREATININE, SERUM Routine 04/17/2025 documented in this encounter Results * Uric acid (04/17/2025 1:11 PM EDT) Blood Venous blood / Unknown us Not In System Ref Prov LAB BLOOD ORDERABLES Alma l Result Performing Organization Address City/[facility] Co de Phone Number MANUALLY TRANSCRIBED RESULTS * BUN (04/17/2025) Blood Venous blood / Unknown us Not In System Ref Prov LAB BLOOD ORDERABLES Edit ed Result - Final Performing Organization Address [facility] Co de Phone Number MANUALLY TRANSCRIBED RESULTS * Creatinine includes GFR, serum (04/17/2025) Blood Venous blood / Unknown us Not In System Ref Prov LAB BLOOD ORDERABLES Edit ed Result - Final Performing Organization Address [facility] Co de Phone Number MANUALLY TRANSCRIBED RESULTS documented in this encounter Visit Diagnoses Not on filedocumented in this encounter Care Teams Sales Consultant Relationship Specialty Start Date End Date [facility] [address] [place], [place] PCP - General Family Medicine 11/03/24 documented as of this encounter
--- OUTSIDE RECORDS SUMMARY | 2025-05-28 16:34 | XMS_ITS | Encounter Summary ---
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 Severe obesity due to excess calories affecting , antepartum ([facility]) Hypertension affecting in second trimester Procedures US [facility] with or without consult Sheila Cruz MD [address] [facility] 1st [place] [address] Phone: tel: fax: Maternal- Medicine at [facility] [address] [place] [address] Phone: tel: fax: Referral ID Status Reason Start Date Expiration Date V isits Requested Visits Authorized [id number] Pending Review 05/17/2025 05/17/2026 1 1 Encounter Details Date Type Department Care Team (Late st Contact Info) Description 05/17/2025 Orders Only Maternal- Medicine at [facility] [address] [place] [address] Bethany Lundy, SHAD Acute palmoplantar pustular psoriasis [...] Info) Description 06/18/2025 8:00 AM EDT Appointment [facility] - Ultrasound [address] [place] [address] 06/18/2025 2:00 PM EDT Telemedicine Maternal- Medicine at [facility] [address] [place] [address] Sheila Cruz MD [address] [facility] 1st [place] [address] Scheduled Orders Name Type Priority Associated Diagnoses [...] trimester documented in this encounter Care Teams Fish Cleaner Relationship Specialty Start Date End Date Services, [facility] [address] [place], [place] PCP - General Family Medicine 11/03/24 documented as of this encounter
--- OUTSIDE RECORDS SUMMARY | 2025-05-28 16:34 | XMS_ITS | Encounter Summary ---
Author Organization [facility] Address [address] [place] [address] Care Team Providers Care Branch Assistant Name Role Phone Judy Caal Unavailable Unavailable Encounter Details Date Type Department Care Team (Late st Contact Info) Description 04/10/2024 Abstract [facility] [address] [facility] [address] Caesar Broderick DO [address] [facility] [address] [place], [facility]11 Social History Tobacco Use Types Packs/Day [...] 3:20 PM EDT Routine [facility] [address] [place] [address] Rosie Qiu, JEM [address] [place] [address] 06/24/2025 1:50 PM EST Routine [facility] [address] [place] [address] Caesar Broderick DO [address] [place], [facility] 12/16/2025 3:00 PM EDT Office Visit [facility] [address] [facility] [place] [address] Caesar Broderick DO [address] [facility] [place] [address] documented as of this encounter Visit Diagnoses Not on filedocumented in this encounter Care Teams Branch Assistant Relationship Specialty Start Date End Date Judy Caal PCP - [facility] CRATE TIER 02/20/24 documented as of this encounter
--- OUTSIDE RECORDS SUMMARY | 2025-05-28 16:34 | XMS_ITS | Encounter Summary ---
Author Organization [facility] Address [address] [place] [address] Care Team Providers Care Roller Embosser Name Role Phone Judy Caal Unavailable Unavailable Encounter Details Date Type Department Care Team (Late st Contact Info) Description 06/01/2024 Abstract [facility] [address] [facility] [place] [address] Caesar Broderick DO [address] [facility] [address] [place], [facility] Social History Tobacco Use Types Packs/Day [...] 3:20 PM EDT Routine [facility] [address] [place] [address] Rosie Qiu, JEM [address] [place] [address] 06/24/2025 1:50 PM EST Routine [facility] [address] [place] [address] Caesar Broderick DO [address] [place], [facility] 12/16/2025 3:00 PM EDT Office Visit [facility] HEAD [address] [facility] [place] [address] Caesar Broderick DO [address] [place] [address] documented as of this encounter Visit Diagnoses Not on filedocumented in this encounter Care Teams Roller Embosser Relationship Specialty Start Date End Date Judy Caal PCP - [facility] PEDIATRIC ANESTHESIOLOGIST 02/20/24 documented as of this encounter
--- OUTSIDE RECORDS SUMMARY | 2025-05-28 16:34 | XMS_ITS | Encounter Summary ---
Author Organization [facility] Address [address] [place] [address] Care Team Providers Care Sander Operator Name Role Phone Judy Caal Unavailable Unavailable Encounter Details Date Type Department Care Team (Late st Contact Info) Description 06/01/2024 Abstract [facility] [address] [facility] [place] [address] Caesar Broderick DO [address] [facility] [address] [place], [facility]11 Social History Tobacco Use Types Packs/Day [...] 3:20 PM EDT Routine [facility] [address] [place] [address] Rosie Qiu, JEM [address] [place] [address] 06/24/2025 1:50 PM EST Routine [facility] [address] [place] [address] Caesar Broderick DO [address] [place], [facility] 12/16/2025 3:00 PM EDT Office Visit [facility] [address] [facility] [place] [address] Caesar Broderick DO [address] [facility] [place] [address] documented as of this encounter Visit Diagnoses Not on filedocumented in this encounter Care Teams Sander Operator Relationship Specialty Start Date End Date Judy Caal PCP - [facility] RENEWAL SPECIALIST 02/20/24 documented as of this encounter
--- OUTSIDE RECORDS SUMMARY | 2025-05-28 16:34 | XMS_ITS | Encounter Summary ---
Author Organization [facility] tem Address [facility][id number] [address] [place] [address] Care Team Providers Care Bone Char Kiln Tender Name Role Phone Services, [facility] Primary Care Provider Encounter Details Date [...] Info) Description 06/18/2025 8:00 AM EDT Appointment [facility] - Ultrasound [address] [place] [address] 06/18/2025 2:00 PM EDT Telemedicine Maternal- Medicine at [facility] [address] [place] [address] Sheila Cruz MD [address] 1st [place] [address] documented as of this encounter Visit Diagnoses Not on filedocumented in this encounter Care Teams Bone Char Kiln Tender Relationship Specialty Start Date End Date Services, [facility] [address] [place], [place] PCP - General Family Medicine 11/03/24 documented as of this encounter
--- OUTSIDE RECORDS SUMMARY | 2025-05-28 16:34 | XMS_ITS | Encounter Summary ---
Author Organization [facility] Address [address] [place] [address] Care Team Providers Care Technical Coordinator Name Role Phone Judy Caal Unavailable Unavailable Encounter Details Date Type Department Care Team (Late st Contact Info) Description 04/25/2024 Clinisync Result Encounter [facility] External Department Unsolicited Israel Broderick, [address] [place], [place] [phone] Social History Tobacco Use Types Packs/Day Years [...] PM EDT Routine [facility] [address] [facility] [place] [address] Rosie Qiu, JEM [address] [place] [address] 06/24/2025 1:50 PM EST Routine [facility] [address] [place] [address] Israel Broderick DO [address] [place], [place] [address] 12/16/2025 3:00 PM EDT Office Visit [facility] [address] [facility] [place] [address] Israel Broderick DO [address] [facility] [place] [address] documented as of this encounter Procedures Procedure Name Priority Date/Time Associated Diagnosis Comments US PELVIS W/ TRANSVAGINAL 04/25/2024 6:34 AM EDT documented in this encounter Results * US PELVIS W/ TRANSVAGINAL (04/25/2024 6:34 AM EDT) Anatomical Region Laterality Modality Other 04/25/2024 6:34 AM EDT Narrative 04/25/2024 6:37 AM EDT [address] [address] Ultrasound Report Signed Patient: ELLEN RAMIRES MR#: [id number] : 1990 Acct:[id number] Age/Sex: 34 / F ADM Date: 04/24/24 Loc: US Attending Dr: Israel Broderick D.O. Ordering Physician: Israel Broderick D.O. Date of Service: 04/24/24 Procedure(s): US pelvis w/ transvaginal Accession Number(s): [id number] cc: Israel Broderick D.O.; Sabiha Aviles FIELD REVIEWER [address] [address] Patient Name: ELLEN RAMIRES MRN: [id number] date: 1990 Sex: F Assigned Patient Location: US Current Patient Location: Accession/Order Number: [id number] Exam Date: 04/24/2024 14:00 Report Date: 04/25/2024 [...] Dean M.D. Signed By: 04/25/2437 DD/ TD/TT: Job Estimator: Procedure Note Radiology, Radiologist, MD - 04/25/2024 [place] [address] Ultrasound Report Signed Patient: ELLEN RAMIRES R#: [id number] : 1990Acct:[id number] Age/Sex: 34 / FADM Date: 04/24/24 Loc: US Attending Dr: Israel Broderick D.O. Ordering Physician: Israel Broderick D.O. Date of Service: 04/24/24 Procedure(s): US pelvis w/ transvaginal Accession Number(s): [id number] cc: Israel Broderick D.O.; Sabiha Aviles FIELD REVIEWER The [address] [address] Patient Name: ELLEN RAMIRES MRN: [id number] date: 1990 Sex: F Assigned Patient Location: US Current Patient Location: Accession/Order Number: [id number] Exam Date: 04/24/2024 14:00 Report Date: 04/25/2024 [...] M.D. Signed By:04/25/24 0637 DD/ 0634 TD/TT: Job Estimator: us Israel Broderick DO [facility] Final Result documented in this encounter Visit Diagnoses Not on filedocumented in this encounter Care Teams Technical Coordinator Relationship Specialty Start Date End Date Judy Caal PCP - [facility] KIER DRIER 02/20/24 documented as of this encounter
--- OUTSIDE RECORDS SUMMARY | 2025-05-28 16:34 | XMS_ITS | Encounter Summary ---
Author Organization [facility] tem Address [id number] [address] [place] [address] Care Team Providers Care Nib Adjuster Name Role Phone Services, [facility] Primary Care Provider Encounter Details Date Type Department Care Team (Late Contact Info) Description 05/17/2025 Results Follow-Up Maternal- Medicine at [facility] [address] [place] [phone] Sheila Cruz MD [address] [facility] [address] [place] [address] B-type natriuretic peptide Social History Tobacco Use [...] 06/18/2025 8:00 AM EDT Appointment [facility] - Ultrasound [address] [address] 06/18/2025 2:00 PM EDT Telemedicine Maternal- Medicine at [facility] [address] [place] [phone] Sheila Cruz MD [address] [facility] [address] [place] [address] documented as of this encounter Visit Diagnoses Not on filedocumented in this encounter Care Teams Nib Adjuster Relationship Specialty Start Date End Date Services, [facility] [address] [facility] [place] [place] PCP - General Family Medicine 11/03/24 documented as of this encounter
--- OUTSIDE RECORDS SUMMARY | 2025-05-28 16:38 | XMS_ITS | CCD ---
Author Organization [facility] Care Team Providers Care Coremaker Name Role Phone Pinky Singh Unavailable Judy Caal Unavailable Unavailable Unavailable Primary Care Provider Unavailabl e Services, [facility] Primary Care Provider Caesar Broderick DO Attending Provider [phone] Caesar Broderick Attending Unavailable Davie, Caesar Admitting Unavailable White SPORTS UMPIRE, June A Unavailable Unavailable ROBBIE LOPEZ Attending Unavailable Services, [facility] Primary Care Provider SERVICES, [facility] Primary Care Unava ilable MILLIE VILLAGRAN Attending Unavailable SERVICES, [facility] Primary Care Unava ilable FRANCIE ABRAMS Attending Unavailable DAVIE, CAESAR R Referring Unavailable SERVICES, [facility] Care Unava ilable YORDY CRUZ Attending Unavailable DAVIE, CAESAR R Referring Unavailable SERVICES, [facility] Care Unava ilable DAVIE, CAESAR R Referring Unavailable SERVICES, [facility] Care Unava ilable DAVIE, CAESAR Attending Unavailable DAVIE, CAESAR Attending Unavailable DAVIE, CAESAR Attending Unavailable DAVIE, CAESAR Attending Unavailable DAVIE, CAESAR Attending Unavailable DAVIE, CAESAR Attending Unavailable DAVIE, CAESAR Attending Unavailable DAVIE, CAESAR Attending Unavailable RODY QIU Attending Unavailable Medications Current Medications Medication Drug [...] BIFID Aon 05-25-2025 AFP MOM 0.85 . [facility] Healthcar e AFP VALUE 38.2 ng/mL . [facility] COMMENT: Comment . [facility] Healthcar e Comment on above: Gema Ortez , Ph.D., [facility] Director References: Available Upon Request. Multiples Of Median Cutoffs For AFP Elevations Kumar 2.5 Black 2.8 IDD 2.0 Twins 4.5 Abbreviation Definitions IDD - Insulin Dep Diabetes OSBR - Open Spina Bifida Risk For further inquiries contact [employer] [facility] at [phone]. This test was developed and its performance characteristics determined by [employer] It has not been cleared or approved by the Food and Drug Administration. Performed at: [facility] [address] [place], [place] [id number] Code And Test Clerk: Jesus Saleh [facility], Phone: [phone] GEST. AGE ON COLLECTION DATE 21.1 . weeks [facility] GESTAT. AGE BASED ON LMP . [facility] Comment on above: Recalculations are n ot recommended when gestational dating by LMP and ultrasound are within 10 days. INSULIN DEP DIABETES No . [facility] Healthcare INTERPRETATION Comment . [facility] Comment on above: Interpretation: Scre [...] Customer Services to discuss available options. The [employer] recommends amniocentesis be offered to women age 35 and older. [age] [facility] MULTIPLE GESTATION No . [facility] [place] [address] [place] [phone] . [facility] . [facility] RESULTS Report . [facility] TEST RESULTS: Negative . Located within [facility] care WEIGHT 282 . lbs [facility] N N LMP [phone] [id number] [phone] N 1 282 N N N N N White/ [facility] Unlisted Lab Teston 05-24-20 25 Free Cell Dna low risk Pro[facility][note 3] System B-TYPE NATRIURETIC PEPTIDEon 05-17-2025 Natriuretic peptide B (Bld) [Mass/Vol] 46 pg/mL Normal <=100 [facility] Comment on above: Performed By: #### B CONTAINER PACKER OPERATOR #### [facility] [address] [place] [address] VIR Urinalysis macro (dipstick) panel (U)on 04-25-2025 Bilirubin, UA Negative Negative - 4(70) +++ mg/dL [facility] Blood, UA Negative Negative - 50 Surjit/mcL [facility] Clarity, UA Clear [facility] re Color, UA Yellow [facility] Healthcar e Glucose, UA Negative Negative - 1999(110) ++++ mg/dL [facility] Interpretation and review of laboratory results Normal [facility] Ketones, UA Negative Negative - 160(16) ++++ mg/dL [facility] Leukocytes, UA Negative Negative - 500+++ Kaleigh/mcL [facility] Nitrite, UA Negative Negative - Positive [facility] pH, UA 6 5 - 9 [facility] Healthcar e Protein, UA Negative Negative - 1999(20) ++++ mg/dL [facility] Spec Grav, UA 1.015 1 - 1.03 [facility] Urobilinogen, UA 1.0 0.2 - 12 mg/dL [facility] TOTAL PROTEIN 24 HOUR UR INEon 04-21-2025 TOTAL PROTEIN URINE RANDOM <6.0 NINF - 11.9 mg/dL [facility] TOTAL VOLUME 24 HOUR URINE 2500 mL/24hr [facility] Health[facility] ALL CBC WITH AUTO DIFFon BASOPHILS ABSOLUTE AUTO 0 [facility] Basophils/100 WBC (Bld) 0.2 % 0.2 - 2.0 % [facility] Eosinophils/100 WBC (Bld) 2.9 % 0.9 - 7.0 % [facility] Erythrocyte distribution width (RBC) [Ratio] 12.3 % 11.0 - 15.0 % [facility] IMMATURE GRANULOCYTES ABS AUTO 0.09 High [facility] Immature granulocytes/100 WBC (Bld) 0.7 % High 0.0 - 0.5 % [facility] Interpretation and review of laboratory results Abnormal [facility] LYMPHOCYTES ABSOLUTE AUTO 2 [facility] Lymphocytes/100 WBC (Bld) 15.4 % Low 20.5 - 60.0 % [facility] MCH (RBC) [Entitic mass] 31.3 pg 26.7 - 34.0 pg [facility] MCHC (RBC) [Mass/Vol] 33.6 g/dL 29.9 - 35.2 g/dL [facility] MCV (RBC) [Entitic vol] 93.2 fL 81.0 - 99.0 fL [facility] MONOCYTES ABSOLUTE AUTO 0.5 [facility] Monocytes/100 WBC (Bld) 4.1 % 1.7 - 12.0 % [facility] NEUTROPHILS ABSOLUTE AUTO 9.9 High [facility] Neutrophils/100 WBC (Bld) 76.7 % High 43.0 - 75.0 % [facility] Platelet mean volume (Bld) [Entitic vol] 10.2 fL 9.5 - 13.5 fL [facility] EO # 0.4 [facility] TBH PLT 251 [facility] e TB RBC 3.8 Low [facility] e TB WBC 13 High [facility] e [facility] APTTon 04-17-2025 aPTT Coag (Bld) [Time] 26.5 s Pr [facility] CBC without diffon Platelets (Bld) [#/Vol] 251 10*3/uL [facility] Rbc Mcv (Fl) By Automated Count 93.2 [facility] Laboratory - Hematology and Cell countson 04-17-2025 Hematocrit (Bld) [Volume fraction] 35.4 % [facility] e Hemoglobin (Bld) [Mass/Vol] 11.9 g/dL [facility] No Panel Informationon 04-17 [facility] e Urinalysis macro (dipstick) panel (U)on 04-11-2025 Bilirubin, UA Negative Negative - 4(70) +++ mg/dL [facility] Blood, UA Negative Negative - 50 Surjit/mcL [facility] Clarity, UA Clear [facility] re Color, UA Yellow [facility] e Glucose, UA Negative Negative - 2000(110) ++++ mg/dL [facility] Interpretation and review of laboratory results Normal [facility] Ketones, UA Negative Negative - 160(16) ++++ mg/dL [facility] Leukocytes, UA Negative Negative - 500+++ Kaleigh/mcL [facility] Nitrite, UA Negative Negative - Positive [facility] pH, UA 6 5 - 9 [facility] Health[facility] Protein, UA Negative Negative - 1999(20) ++++ mg/dL [facility] Spec Grav, UA 1.015 1 - 1.03 [facility] Urobilinogen, UA 1.0 0.2 - 12 mg/dL [facility] Urinalysis macro (dipstick) panel (U)on 03-28-2025 Bilirubin, UA Negative Negative - 4(70) +++ mg/dL [facility] Blood, UA Negative Negative - 50 Surjit/mcL [facility] Clarity, UA Clear [facility] re Color, UA Yellow [facility] Glucose, UA Negative Negative - 1999(110) ++++ mg/dL [facility] Interpretation and review of laboratory results Abnormal [facility] Ketones, UA Negative Negative - 160(16) ++++ mg/dL [facility] Leukocytes, UA Positive Negative - 500+++ Kaleigh/mcL [facility] Comment on above: 2+ Nitrite, UA Negative Negative - Positive [facility] pH, UA 6 5 - 9 [facility] Healthcar e Protein, UA Negative Negative - 1999(20) ++++ mg/dL [facility] Spec Grav, UA 1.02 1 - 1.03 [facility] Urobilinogen, UA 1.0 0.2 - 12 mg/dL [facility] Healthcar e ALL CBC WITH AUTO DIFFon BASOPHILS ABSOLUTE AUTO 0.1 [facility] Basophils/100 WBC (Bld) 0.5 % 0.2 - 2.0 % [facility] Eosinophils/100 WBC (Bld) 4 % 0.9 - 7.0 % [facility] Erythrocyte distribution width (RBC) [Ratio] 12.2 % 11.0 - 15.0 % [facility] IMMATURE GRANULOCYTES ABS AUTO 0.08 High [facility] Immature granulocytes/100 WBC (Bld) 0.6 % High 0.0 - 0.5 % [facility] Interpretation and review of laboratory results Abnormal [facility] LYMPHOCYTES ABSOLUTE AUTO 2.6 [facility] Lymphocytes/100 WBC (Bld) 18.4 % Low 20.5 - 60.0 % [facility] MCH (RBC) [Entitic mass] 31.5 pg 26.7 - 34.0 pg [facility] MCHC (RBC) [Mass/Vol] 34.1 g/dL 29.9 - 35.2 g/dL [facility] MCV (RBC) [Entitic vol] 92.4 fL 81.0 - 99.0 fL [facility] MONOCYTES ABSOLUTE AUTO 0.6 [facility] Monocytes/100 WBC (Bld) 4.3 % 1.7 - 12.0 % [facility] NEUTROPHILS ABSOLUTE AUTO 10.1 High [facility] Neutrophils/100 WBC (Bld) 72.2 % 43.0 - 75.0 % [facility] Platelet mean volume (Bld) [Entitic vol] 10.2 fL 9.5 - 13.5 fL [facility] Healthc are TBH EO # 0.6 [facility] TBH PLT 261 [facility] TB RBC 3.94 Low [facility] Healthcar e TBH WBC 13.9 High [facility] Healthcar e [facility] CBC without diffon Platelets (Bld) [#/Vol] 261 10*3/uL [facility] Rbc Mcv (Fl) By Automated Count 92.4 [facility] Drug Screen, Urineon 025 Amphetamine/Methamphet amine Negative [facility]biturates [facility] Benzodiazepines Negative [facility] Cocaine Metabolite Negative [facility] Methadone [facility] Opiates Negative [facility] Oxycodone Negative [facility] Phencyclidine Negative [facility] Thc Marijuana, Urine Negative [facility] HBV surface Ag IA Qlon 03-20 Hepatitis B Surface Antigen Negative [facility] HCV Ab IA Qlon 03-20-2025 HCV Ab Ql (S) Non-Reactive [facility] HIV 1+2 Ab+HIV1 p24 Ag IA Ql on 03-20-2025 HIV 1&2 AB/AG Non-Reactive [facility] Hemoglobin A1con 03-20-2025 HbA1c (Bld) [Mass fraction] 5.1 % 4.0 - 6.0 % [facility] Laboratory - Hematology and Cell countson 03-20-2025 Hematocrit (Bld) [Volume fraction] 36.4 % [facility] Hemoglobin (Bld) [Mass/Vol] 12.4 g/dL [facility] Brevity No Panel Informationon 03-20 [facility] Health[facility] Rubella IGG immune statuson 03-20-2025 Rubella immune IgG IMMUNE [facility] T. pallidum IgG+IgM IA Ql (S )Ordered By: Christian Bertrand on 03-20-2025 Syphilis Non-Reactive [facility] Type and screenon 03-20-2025 Abo/Rh(D) Positive [facility] HCG ( test) Ql (U)o n 03-01-2025 Interpretation and review of laboratory results Abnormal [facility] Preg Test, Ur Positive Negative [facility] [employer] [employer] US OB TRANSVAGINALon 025 US OB [...] UA Negative Negative - 4(70) +++ mg/dL [facility] Blood, UA Negative Negative - 50 Surjit/mcL [facility] Clarity, UA Clear [facility] re Color, UA Yellow [facility] Healthcar e Glucose, UA Negative Negative - 1999(110) ++++ mg/dL [facility] Interpretation and review of laboratory results Normal [facility] Ketones, UA Negative Negative - 160(16) ++++ mg/dL [facility] Leukocytes, UA Negative Negative - 500+++ Kaleigh/mcL [facility] Nitrite, UA Negative Negative - Positive [facility] pH, UA 7 5 - 9 [facility] e Protein, UA Negative Negative - 1999(20) ++++ mg/dL [facility] Spec Grav, UA 1.005 1 - 1.03 [facility] Urobilinogen, UA 0.2 0.2 - 12 mg/dL [facility] Health[facility] e ALL PROGESTERONEon 5 PROGESTERONE 8.7 ng/mL . [facility] are Comment on above: Follicular phase 0.1 - 0.9 Luteal phase 1.8 - 23.9 Ovulation phase 0.1 - 12.0 First trimester 11.0 - 44.3 Second trimester 25.4 - 83.3 Third trimester 58.7 - 214.0 Postmenopausal 0.0 - 0.1 Performed at: [facility] [id number] Code And Test Clerk: Yobany Blount PhD, Phone: [phone] [facility] e PATHOLOGY REQUEST FOR LAB CO RPon 12-26-2024 PATHOLOGY REQUEST FOR LAB RENA [facility] Comment on above: See report. Scanned copy available in EMR. SKIN SPECIMEN [facility] [employer] ALL PROGESTERONEon 5 PROGESTERONE 37.9 ng/mL . [facility] are Comment on above: Follicular phase 0.1 - 0.9 Luteal phase 1.8 - 23.9 Ovulation phase 0.1 - 12.0 First trimester 11.0 - 44.3 Second trimester 25.4 - 83.3 Third trimester 58.7 - 214.0 Postmenopausal 0.0 - 0.1 Performed at: [facility] [employer] [id number] Code And Test Clerk: Yobany Blount PhD, Phone: [phone] [facility] Health[facility] Pathology Request for Lab Co rpon 12-18-2024 Pathology Request for Lab Rena Normal [facility] Comment on above: Order Comment: SKIN SPECIMEN Result Comment: See report. Scanned copy available in EMR. PERFORMED BY: [place] [id number] PATHOLOGIST SUPPLY TEACHER ANAHI TRAN M.D. Performed By: #### P ATH TO [facility] #### [address] IGP,APTIMA HPV,AGE GDLNon AGE GDLN ACOG TESTING Note . [facility] Comment on above: TESTS RESULT FLAG UN ITS REF RANGE LAB Clinician Provided Cytology Information Source.............Cervix;Endocervix No. of containers..01 ThinPrep Vial Age Algo ACOG Marjorie... 30-65 01 FLAG LEGEND: L-Low Normal,H-High Normal,LL-Alert Low,HH-Alert High <-Panic Low,>-Panic High,A-Abnormal,AA-Critical Abnormal Performed at: 01 =G [facility] [address] Vonnie Woodard MD, HPV APTIMA Negative Negative [facility] Comment on above: This nucleic acid am plification test detects fourteen high- risk HPV types (16,18,31,33,35,39,45,51,52,56,58,59,66,68) without differentiation. Performed at: =G - [facility] [id number] Code And Test Clerk: Vonnie Woodard MD, Phone: [phone] Performed at: - [facility] [id number] Code And Test Clerk: Vonnie Woodard MD, Phone: [phone] IGP, APTIMA HPV, RFX 16/18,45 Note . [facility] Comment on above: TESTS RESULT FLAG UN ITS REF RANGE LAB DIAGNOSIS: 02 NEGATIVE FOR INTRAEPITHELIAL LESION OR MALIGNANCY. Specimen adequacy: 02 Satisfactory for evaluation. Endocervical and/or squamous metaplastic cells (endocervical component) are present. Performed by: Clinton Vyas, Biology Department Chair (ASCP) . 02 Note: Note 02 The [...] Low,>-Panic High,A-Abnormal,AA-Critical Abnormal Performed at: [address] [facility] [address] [address] Vonnie Woodard MD, BRUSH-SPATULA CERVIX ENDOCERVIX [facility] ALL PROGESTERONEon 5 PROGESTERONE 11.2 ng/mL . [facility] are Comment on above: Follicular phase 0.1 - 0.9 Luteal phase 1.8 - 23.9 Ovulation phase 0.1 - 12.0 First trimester 11.0 - 44.3 Second trimester 25.4 - 83.3 Third trimester 58.7 - 214.0 Postmenopausal 0.0 - 0.1 Performed at: - [facility] [address] [id number] Code And Test Clerk: Yobany Blount PhD, Phone: [phone] [facility] CBC AND AUTO DIFFon 11-05-19 25 ABSOLUTE BASOPHIL 0.1 X10E9/L Normal 0.0-0.2 [facility] Comment on above: Performed By: #### 4 8066-5, 73675-1, THYR, CBCA, CMP #### [facility] ([id number]) [address] [place] [address] ABSOLUTE NEUTROPHIL 6.9 X10E9/L High 1.5-6.6 [facility] Comment on above: Performed By: #### 4 8066-5, , THYR, CBCA, CMP #### [facility] ([id number]) [address] [place] [address] Basophils/100 WBC (Bld) 1.1 % Normal [facility] Comment on above: Performed By: #### 4 8066-5, 47715-7, THYR, CBCA, CMP #### [facility] ([id number]) [address] [place] [address]002 Eosinophils (Bld) [#/Vol] 0.3 10*3/uL Normal 0.0-0.4 [facility] Comment on above: Performed By: #### 4 8066-5, , THYR, CBCA, CMP #### [facility] ([id number]) [address] [place] [address] Eosinophils/100 WBC (Bld) 2.3 % Normal [facility] Comment on above: Performed By: #### 4 8066-5, , THYR, CBCA, CMP #### [facility] ([id number]) [address] [place] [address] Erythrocyte distribution width (RBC) [Ratio] 12.6 % Normal 11.5-15.0 [facility] Comment on above: Performed By: #### 4 8066-5, , THYR, CBCA, CMP #### [facility] ([id number]) [address] [place] [address] Hematocrit (Bld) [Volume fraction] 40.4 % Normal 35-47 [facility] Comment on above: Performed By: #### 4 8066-5, , THYR, CBCA, CMP #### [facility] ([id number]) [address] [place] [address] Hemoglobin (Bld) [Mass/Vol] 13.7 g/dL Normal 11.7-15.5 [facility] Comment on above: Performed By: #### 4 8066-5, , THYR, CBCA, CMP #### [facility] ([id number]) [address] [place] [address]27 Lymphocytes (Bld) [#/Vol] 3.6 10*3/uL High 1.0-3.5 [facility] Comment on above: Performed By: #### 4 8066-5, , THYR, CBCA, CMP #### [facility] ([id number]) [address] [place] [address]146 Lymphocytes/100 WBC (Bld) 31.6 % Normal [facility] Comment on above: Performed By: #### 4 8066-5, , THYR, CBCA, CMP #### [facility] ([id number]) [address] [place] [address]755 MCH (RBC) [Entitic mass] 30.9 pg Normal 27-34 [facility] Comment on above: Performed By: #### 4 8066-5, , THYR, CBCA, CMP #### [facility] ([id number]) [address] [place] [address] 36363 MCHC (RBC) [Mass/Vol] 34.0 g/dL Normal 32-36 [facility] Comment on above: Performed By: #### 4 8066-5, , THYR, CBCA, CMP #### [facility] ([id number]) [address] [place] [address] 36157 MCV (RBC) [Entitic vol] 91 fL Normal 80-100 [facility] Comment on above: Performed By: #### 4 8066-5, , THYR, CBCA, CMP #### [facility] ([id number]) [address] [place] [address] 07296 Monocytes (Bld) [#/Vol] 0.6 10*3/uL Normal 0-0.9 [facility] Comment on above: Performed By: #### 4 8066-5, , THYR, CBCA, CMP #### [facility] ([id number]) [address] [place] [address] 09274 Monocytes/100 WBC (Bld) 5.4 % Normal [facility] Comment on above: Performed By: #### 4 8066-5, , THYR, CBCA, CMP #### [facility] ([id number]) [address] [place] [address] 51860 Neutrophils/100 WBC (Bld) 59.6 % Normal [facility] Comment on above: Performed By: #### 4 8066-5, , THYR, CBCA, CMP #### [facility] ([id number]) [address] [place] [address] 50692 Platelet mean volume (Bld) [Entitic vol] 7.9 fL Normal 7-12 [facility] Comment on above: Performed By: #### 4 8066-5, , THYR, CBCA, CMP #### [facility] ([id number]) [address] [place] [address] 12411 Platelets (Bld) [#/Vol] 346 10*3/uL Normal 150-450 [facility] Comment on above: Performed By: #### 4 8066-5, , THYR, CBCA, CMP #### [facility] ([id number]) [address] [place] [address] 39510 RBC COUNT 4.44 X10E12/L Normal 3.80-5.20 [facility] Comment on above: Performed By: #### 4 8066-5, , THYR, CBCA, CMP #### [facility] ([id number]) [address] [place] [address] 31794 WBC (Bld) [#/Vol] 11.5 10*3/uL High 4.0-11.0 [facility] Comment on above: Performed By: #### 4 8066-5, , THYR, CBCA, CMP #### [facility] ([id number]) [address] [place] [address] 27700 COMPREHENSIVE METABOLIC PANE [place] 03-16-2025 Albumin [Mass/Vol] 4.0 g/dL Normal 3.2-5.3 [facility] Comment on above: Performed By: #### 4 8066-5, , THYR, CBCA, CMP #### [facility] ([id number]) [address] [place] [address]3230 ALP [Catalytic activity/Vol] 50 U/L Normal 39-130 [facility] Comment on above: Performed By: #### 4 8066-5, , THYR, CBCA, CMP #### [facility] ([id number]) [address] [place] [address] 04708 ALT [Catalytic activity/Vol] 19 U/L Normal 0-31 [facility] Comment on above: Performed By: #### 4 8066-5, , THYR, CBCA, CMP #### [facility] ([id number]) [address] [place] [address] 23267 Anion gap [Moles/Vol] 11 mmol/L Normal 5-15 [facility] Comment on above: Performed By: #### 4 8066-5, , THYR, CBCA, CMP #### [facility] ([id number]) [address] [place] [address] 71105 AST [Catalytic activity/Vol] 18 U/L Normal 0-41 [facility] Comment on above: Performed By: #### 4 8066-5, , THYR, CBCA, CMP #### [facility] ([id number]) [address] [place] [address] 57209 Bilirubin [Mass/Vol] 0.4 mg/dL Normal 0.3-1.2 [facility] Comment on above: Performed By: #### 4 8066-5, , THYR, CBCA, CMP #### [facility] ([id number]) [address] [place] [address] 85218 Calcium [Mass/Vol] 9.4 mg/dL Normal 8.5-10.5 [facility] Comment on above: Performed By: #### 4 8066-5, , THYR, CBCA, CMP #### [facility] ([id number]) [address] [place] [address] 24065 Chloride [Moles/Vol] 106 mmol/L Normal 98-109 [facility] Comment on above: Performed By: #### 4 8066-5, , THYR, CBCA, CMP #### [facility] ([id number]) [address] [place] [address] 50686 CO2 [Moles/Vol] 23 mmol/L Normal 22-32 [facility] Comment on above: Performed By: #### 4 8066-5, , THYR, CBCA, CMP #### [facility] ([id number]) [address] [place] [address] 01180 Creatinine [Mass/Vol] 0.76 mg/dL Normal 0.40-1.00 [facility] Comment on above: Result Comment: METH OD TRACEABLE TO IDMS STANDARD Performed By: #### 4 8066-5, , THYR, CBCA, CMP #### [facility] ([id number]) [address] [place] [address] 42731 eGFR (CKD-EPI) NON-RACE DEPENDENT >90 Normal >59 [facility] Comment on above: Result Comment: Reported eGFR is based on the CKD-EPI 2020 equation that does not use a race coefficient. Performed By: #### 4 8066-5, 93182-0, THYR, CBCA, CMP #### [facility] ([id number]) [address] [place] [address] 02669 Glucose [Mass/Vol] 114 mg/dL High 65-99 [facility] Comment on above: Performed By: #### 4 8066-5, , THYR, CBCA, CMP #### [facility] ([id number]) [address] [place] [address] 62895 Potassium [Moles/Vol] 4.1 mmol/L Normal 3.5-5.0 [facility] Comment on above: Performed By: #### 4 8066-5, , THYR, CBCA, CMP #### [facility] ([id number]) [address] [place] [address]131 Protein [Mass/Vol] 7.3 g/dL Normal 6.0-8.0 [facility] Comment on above: Performed By: #### 4 8066-5, , THYR, CBCA, CMP #### [facility] ([id number]) [address] [place] [address] 02482 Sodium [Moles/Vol] 140 mmol/L Normal 134-146 [facility] Comment on above: Performed By: #### 4 8066-5, , THYR, CBCA, CMP #### [facility] ([id number]) [address] [place] [address] 37257 Urea nitrogen [Mass/Vol] 13 mg/dL Normal 5-23 [facility] Comment on above: Performed By: #### 4 8066-5, , THYR, CBCA, CMP #### [facility] ([id number]) [address] [place] [address]991 Fibrin D-dimer DDU (PPP) [Ma ss/Vol]on 11-04-2024 D DIMER <150 Normal <255 [facility] Comment on above: Result Comment: Results <255 ng/mL DDU: The presence of a VTE can safely be excluded with a negative D-Dimer result and Wells score. A negative result doesn't exclude the possibility of DIC. The test be repeated along with other diagnostic tests if the patient's symptoms persist or worsen. [email or web address] Performed By: #### 4 8066-5, 64911-0, THYR, CBCA, CMP #### [facility] ([id number]) [address] [place] [address] 60833 HCG ( test) Ql (U)o n 11-04-2024 Beta HCG ( test) Ql (U) Negative Normal NEG [facility] Comment on above: Performed By: #### 2 106-3 #### [facility] ([id number]) [address] [place] [address] 35956 MAGNESIUMon 11-04-2024 Magnesium [Mass/Vol] 2.3 mg/dL Normal 1.8-2.6 [facility] Comment on above: Performed By: #### 4 8066-5, , THYR, CBCA, CMP #### [facility] ([id number]) [address] [place] [address] 15241 THYROID PROFILEon 11-04-2024 Free T4 [Mass/Vol] 0.88 ng/dL Normal 0.61-1.60 [facility] Comment on above: Performed By: #### 4 8066-5, 94465-6, THYR, CBCA, CMP #### [facility] ([id number]) [address] [place] [address] 59820 TSH 1.78 uIU/mL Normal 0.49-4.67 [facility] Comment on above: Performed By: #### 4 8066-5, 24979-1, THYR, CBCA, CMP #### [facility] ([id number]) [address] [place] [address] 77916 URN MACROSCOPIC NURon 2024 BILIRUBIN LEIDA Negative Normal NEG [facility] Comment on above: Performed By: #### N UM #### [facility] ([id number]) [address] [place] [address] [place] [address] BLOOD/HGB LEIDA Trace Abnormal NEG [facility] Comment on above: Performed By: #### N UM #### [facility] ([id number]) [address] [place] [address] [place] [address] GLUCOSE LEIDA Negative Normal NEG [facility] Comment on above: Performed By: #### N UM #### [facility] ([id number]) [address] [place] [address] [place] [address] KETONES LEIDA Negative Normal NEG [facility] Comment on above: Performed By: #### N UM #### [facility] ([id number]) [address] [place] [address] [place] [address] LEUKOCYTE ESTERASE LEIDA Small Abnormal NEG [facility] Comment on above: Performed By: #### N UM #### [facility] ([id number]) [address] [place] [address] [place] [address] NITRITE LEIDA Negative Normal NEG [facility] Comment on above: Performed By: #### N UM #### [facility] ([id number]) [address] [place] [address] [place] [address] PH LEIDA 6.0 Normal 5.0-8.5 [facility] Comment on above: Performed By: #### N UM #### [facility] ([id number]) [address] [place] [address] [place] [address] PROTEIN LEIDA Negative Normal NEG [facility] Comment on above: Performed By: #### N UM #### [facility] ([id number]) [address] [place] [address] [place] [address] SPECIFIC GRAVITY LEIDA 1.025 Normal 1.003-1.035 [facility] Comment on above: Performed By: #### N UM #### [facility] ([id number]) [address], [place] [address] UROBILINOGEN LEIDA 0.2 eu/dL Normal <1.1 [facility] Comment on above: Performed By: #### N UM #### [facility] ([id number]) [address], [place] [address] XR CHEST 1 VWon 11-04-2024 XR CHEST 1 VW XR CHEST 1 VW History: Palpitations Exam/Technique: Portable upright AP chest Comparison: 11/12/2022 Findings: There is no active pulmonary or pleural disease displayed. Cardiac and mediastinal contours appear within normal limits on this AP projection. IMPRESSION: No evidence of active pulmonary disease. 7 Finalized by Tres Giron MD on 11/04/2024 1:02 AM Normal [facility] ALL PROGESTERONEon 5 PROGESTERONE 13.8 ng/mL . [facility] are Comment on above: Follicular phase 0.1 - 0.9 Luteal phase 1.8 - 23.9 Ovulation phase 0.1 - 12.0 First trimester 11.0 - 44.3 Second trimester 25.4 - 83.3 Third trimester 58.7 - 214.0 Postmenopausal 0.0 - 0.1 Performed at: [employer] [id number] Code And Test Clerk: Yobany Blount PhD, Phone: [phone] [employer] ALL PROGESTERONEon 5 PROGESTERONE 22.3 ng/mL . [facility] are Comment on above: Follicular phase 0.1 - 0.9 Luteal phase 1.8 - 23.9 Ovulation phase 0.1 - 12.0 First trimester 11.0 - 44.3 Second trimester 25.4 - 83.3 Third trimester 58.7 - 214.0 Postmenopausal 0.0 - 0.1 Performed at: [employer] [id number] Code And Test Clerk: Yobany Blount PhD, Phone: [phone] [employer] ALL PROGESTERONEon 4 PROGESTERONE 8.5 ng/mL . [facility] are Comment on above: Follicular phase 0.1 - 0.9 Luteal phase 1.8 - 23.9 Ovulation phase 0.1 - 12.0 First trimester 11.0 - 44.3 Second trimester 25.4 - 83.3 Third trimester 58.7 - 214.0 Postmenopausal 0.0 - 0.1 Performed at: [address] [id number] Code And Test Clerk: Yobany Blount PhD, Phone: [phone] FORMERLY [facility] HOSPITALAires PharmaceuticalsAUDRAIN MEDICAL CENTERFlowPay e ALL PROGESTERONEon PROGESTERONE 16.8 ng/mL . [facility] are Comment on above: Follicular phase 0.1 - 0.9 Luteal phase 1.8 - 23.9 Ovulation phase 0.1 - 12.0 First trimester 11.0 - 44.3 Second trimester 25.4 - 83.3 Third trimester 58.7 - 214.0 Postmenopausal 0.0 - 0.1 Performed at: [address] [id number] Code And Test Clerk: Yobany Blount PhD, Phone: [phone] FORMERLY [facility] HOSPITALAires PharmaceuticalsAUDRAIN MEDICAL CENTERFlowPay e ALL CBC WITH AUTO DIFFon BASOPHILS ABSOLUTE AUTO 0.1 [facility] Basophils/100 WBC (Bld) 0.6 % 0.2 - 2.0 % [facility] Eosinophils/100 WBC (Bld) 2.8 % 0.9 - 7.0 % [facility] Erythrocyte distribution width (RBC) [Ratio] 12.1 % 11.0 - 15.0 % [facility] Hematocrit (Bld) [Volume fraction] 40.6 % 36.0 - 48.0 % [facility] [employer] Hemoglobin (Bld) [Mass/Vol] 13.5 g/dL 12.0 - 16.0 g/dL [facility] IMMATURE GRANULOCYTES ABS AUTO 0.02 [facility] Immature granulocytes/100 WBC (Bld) 0.3 % 0.0 - 0.5 % [facility] LYMPHOCYTES ABSOLUTE AUTO 1.8 [facility] Lymphocytes/100 WBC (Bld) 23.0 % 20.5 - 60.0 % [facility] MCH (RBC) [Entitic mass] 30.6 pg 26.7 - 34.0 pg [facility] MCHC (RBC) [Mass/Vol] 33.3 g/dL 29.9 - 35.2 g/dL [facility] MCV (RBC) [Entitic vol] 92.1 fL 81.0 - 99.0 fL [facility] MONOCYTES ABSOLUTE AUTO 0.5 [facility] Monocytes/100 WBC (Bld) 6.6 % 1.7 - 12.0 % [facility] NEUTROPHILS ABSOLUTE AUTO 5.3 [facility] Neutrophils/100 WBC (Bld) 66.7 % 43.0 - 75.0 % [facility] Platelet mean volume (Bld) [Entitic vol] 9.8 fL 9.5 - 13.5 fL [facility] are TBH EO # 0.2 [facility]H PLT 284 [facility] TB RBC 4.41 [facility] Healthcar e TB WBC 8.0 [facility] Healthcar e CLINIS[facility]NC [facility] ALL CBC WITH AUTO DIFFon BASOPHILS ABSOLUTE AUTO 0.1 [facility] Basophils/100 WBC (Bld) 0.5 % 0.2 - 2.0 % [facility] Eosinophils/100 WBC (Bld) 2.8 % 0.9 - 7.0 % [facility] Erythrocyte distribution width (RBC) [Ratio] 12.0 % 11.0 - 15.0 % [facility] Hematocrit (Bld) [Volume fraction] 39.7 % 36.0 - 48.0 % [facility] Hemoglobin (Bld) [Mass/Vol] 13.4 g/dL 12.0 - 16.0 g/dL [facility] IMMATURE GRANULOCYTES ABS AUTO 0.03 [facility] Immature granulocytes/100 WBC (Bld) 0.3 % 0.0 - 0.5 % [facility] Interpretation and review of laboratory results Abnormal [facility] LYMPHOCYTES ABSOLUTE AUTO 2.9 [facility] Lymphocytes/100 WBC (Bld) 24.4 % 20.5 - 60.0 % [facility] MCH (RBC) [Entitic mass] 30.7 pg 26.7 - 34.0 pg [facility] MCHC (RBC) [Mass/Vol] 33.8 g/dL 29.9 - 35.2 g/dL [facility] MCV (RBC) [Entitic vol] 91.1 fL 81.0 - 99.0 fL [facility] MONOCYTES ABSOLUTE AUTO 0.6 [facility] [...] POCT EKGOrdered By: Sheyla Powell on 03-13-2024 [facility] No Panel InformationOrdered By: Pinky Singh on 11-24-2023 Quick Strep (POC) [facility] Cytology Cervical or vaginal smear or scraping studyon 11-19-2022 [facility] COVID/FLU/RSV RT-PCRon 10-11 SARS-CoV-2 (COVID-19) RNA PEACE+probe Ql (Unsp spec) Positive [facility] [employer] Other COVID/FLU/RSV RT-PCR Negative [facility] [employer] Other Vital Signs Date Time Vital Sign Value Performing Clinician Facility 05-17-2025 07:51-0400 Body height 172.7 cm Yordy Cruz MD Work Phone: [facility] 05-17-2025 07:51-0400 Body mass index (BMI) [Ratio] 42.96 kg/m2 Yordy Cruz MD Work Phone: [facility] 05-17-2025 07:51-0400 Body weight 128.14 kg Yordy Cruz MD Work Phone: [facility] 05-17-2025 07:51-0400 Diastolic blood pressure 84 mm[Hg] Yordy Cruz MD Work Phone: [facility] 05-17-2025 07:51-0400 Heart rate 87 /min Yordy Cruz MD Work Phone: [facility] 05-17-2025 07:51-0400 Systolic blood pressure 147 mm[Hg] Yordy Cruz MD Work Phone: [facility] 04-25-2025 11:30-0400 Body mass index (BMI) [Ratio] 42.88 kg/m2 Caesar Davie DO Work Phone: [facility] 04-25-2025 11:30-0400 Body weight 127.91 kg Caesar Davie DO Work Phone: [facility] 04-25-2025 11:30-0400 Diastolic blood pressure 82 mm[Hg] Caesar Davie DO Work Phone: [facility] 04-25-2025 11:30-0400 Systolic blood pressure 138 mm[Hg] Caesar Davie DO Work Phone: [facility] 04-11-2025 11:00-0400 Body mass index (BMI) [Ratio] 42.63 kg/m2 Caesar Davie DO Work Phone: [facility] 04-11-2025 11:00-0400 Body weight 127.19 kg Caesar Davie DO Work Phone: [facility] 04-11-2025 11:00-0400 Diastolic blood pressure 86 mm[Hg] Caesar Davie DO Work Phone: [facility] 04-11-2025 11:00-0400 Systolic blood pressure 140 mm[Hg] Caesar Davie DO Work Phone: [facility] 03-28-2025 11:42-0400 Body mass index (BMI) [Ratio] 42.29 kg/m2 Caesar Davie DO Work Phone: [facility] 03-28-2025 11:42-0400 Body weight 126.15 kg Caesar Davie DO Work Phone: [facility] 03-28-2025 11:42-0400 Diastolic blood pressure 80 mm[Hg] Caesar Davie DO Work Phone: [facility] 03-28-2025 11:42-0400 Systolic blood pressure 138 mm[Hg] Caesar Davie DO Work Phone: [facility] 03-01-2025 10:03-0400 Body mass index (BMI) [Ratio] 41.66 kg/m2 Davie [facility] 03-01-2025 10:03-0400 Body weight 124.29 kg Davie [facility] 03-01-2025 10:03-0400 Diastolic blood pressure 76 mm[Hg] Davie [facility] 03-01-2025 10:03-0400 Systolic blood pressure 124 mm[Hg] [facility]ie [facility] 01-03-2025 10:52-0400 Body height 172.7 cm Robbie Lopez MD Work Phone: [facility] 01-03-2025 10:52-0400 Body mass index (BMI) [Ratio] 40.84 kg/m2 Robbie Lopez MD Work Phone: [facility] 01-03-2025 10:52-0400 Body temperature 97.81 [degF] Robbie Lopez MD Work Phone: [facility] 01-03-2025 10:52-0400 Body weight 121.84 kg Robbie Lopez MD Work Phone: [facility] 01-03-2025 10:52-0400 Diastolic blood pressure 78 mm[Hg] Robbie Lopez MD Work Phone: [facility] 01-03-2025 10:52-0400 Heart rate 73 /min Robbie Lopez MD Work Phone: [facility] 01-03-2025 10:52-0400 Systolic blood pressure 132 mm[Hg] Robbie Lopez MD Work Phone: [facility] 12-18-2024 13:38-0400 Body mass index (BMI) [Ratio] 40.35 kg/m2 Caesar Davie DO Work Phone: [facility] 12-18-2024 13:38-0400 Body weight 120.39 kg Caesar Davie DO Work Phone: [facility] 12-18-2024 13:38-0400 Diastolic blood pressure 72 mm[Hg] Caesar Davie DO Work Phone: [facility] 12-18-2024 13:38-0400 Systolic blood pressure 118 mm[Hg] Caesar Davie DO Work Phone: [facility] 12-10-2024 14:36-0400 Body mass index (BMI) [Ratio] 40.75 kg/m2 Caesar Davie DO Work Phone: [facility] 12-10-2024 14:36-0400 Body weight 121.56 kg Caesar Davie DO Work Phone: [facility] 12-10-2024 14:36-0400 Diastolic blood pressure 78 mm[Hg] Caesar Davie DO Work Phone: [facility] 12-10-2024 14:36-0400 Systolic blood pressure 130 mm[Hg] Caesar Davie DO Work Phone: [facility] 11-12-2024 14:03-0400 Diastolic blood pressure 86 mm[Hg] Caesar Davie DO Work Phone: [facility] 11-12-2024 14:03-0400 Systolic blood pressure 120 mm[Hg] Caesar Davie DO Work Phone: [facility] 07-23-2024 13:12-0500 Body mass index (BMI) [Ratio] 40.01 kg/m2 Caesar Davie DO Work Phone: [facility] 07-23-2024 13:12-0500 Body weight 119.35 kg Caesar Davie DO Work Phone: [facility] 07-23-2024 13:12-0500 Diastolic blood pressure 78 mm[Hg] Caesar Davie DO Work Phone: [facility] 07-23-2024 13:12-0500 Systolic blood pressure 130 mm[Hg] Caesar Davie DO Work Phone: [facility] 06-11-2024 14:39-0400 Body height 172.7 cm Caesar Davie DO Work Phone: [facility] 06-11-2024 14:39-0400 Body mass index (BMI) [Ratio] 39.53 kg/m2 Caesar Davie DO Work Phone: [facility] 06-11-2024 14:39-0400 Body weight 117.94 kg Caesar Davie DO Work Phone: [facility] 06-11-2024 14:39-0400 Diastolic blood pressure 76 mm[Hg] Caesar Davie DO Work Phone: [facility] 06-11-2024 14:39-0400 Systolic blood pressure 128 mm[Hg] Caesar Davie DO Work Phone: [facility] 05-03-2024 11:39-0400 Body weight 118.84 kg Caesar Davie DO Work Phone: [facility] 05-03-2024 11:39-0400 Diastolic blood pressure 78 mm[Hg] Caesar Davie DO Work Phone: [facility] 05-03-2024 11:39-0400 Systolic blood pressure 130 mm[Hg] Caesar Davie DO Work Phone: [facility] 04-10-2024 09:36-0400 Body weight 120.57 kg Caesar Davie DO Work Phone: [facility] 04-10-2024 09:36-0400 Diastolic blood pressure 78 mm[Hg] Caesar Davie DO Work Phone: [facility] 04-10-2024 09:36-0400 Systolic blood pressure 130 mm[Hg] Caesar Davie DO Work Phone: [facility] 03-13-2024 10:50-0400 Body height 172.7 cm James Fraire MD Work Phone: [facility] 03-13-2024 10:50-0400 Body mass index (BMI) [Ratio] 40.66 kg/m2 James Fraire MD Work Phone: [facility] 03-13-2024 10:50-0400 Body weight 121.29 kg James Fraire MD Work Phone: [facility] 03-13-2024 10:50-0400 Diastolic blood pressure 94 mm[Hg] James Fraire MD Work Phone: [facility] 03-13-2024 10:50-0400 Heart rate 83 /min James Fraire MD Work Phone: [facility] 03-13-2024 10:50-0400 SaO2% (BldA) [Mass fraction] 98 % James Fraire MD Work Phone: [facility] 03-13-2024 10:50-0400 Systolic blood pressure 136 mm[Hg] James Fraire MD Work Phone: [facility] 11-24-2023 12:26-0400 Body height 172.72 cm [facility] 11-24-2023 12:26-0400 Body mass index (BMI) [Ratio] 42.6 kg/m2 [facility] 11-24-2023 12:26-0400 Body temperature 97.3 [degF] [facility] 11-24-2023 12:26-0400 Body weight 127.11 kg [facility] 11-24-2023 12:26-0400 Diastolic blood pressure 84 mm[Hg] [facility] 11-24-2023 12:26-0400 Heart rate 75 /min [facility] 11-24-2023 12:26-0400 Respiratory rate 18 /min [facility] 11-24-2023 12:26-0400 SaO2% (BldA) [Mass fraction] 98 % [facility] 11-24-2023 12:26-0400 Systolic blood pressure 130 mm[Hg] [facility] 10-11-2022 11:35-0500 Body height 172.72 cm Pinky Singh Other [employer] Other 10-11-2022 11:35-0500 Body mass index (BMI) [Ratio] 42.27 kg/m2 Pinky Singh Other [employer] Other 10-11-2022 11:35-0500 Body temperature 97.8 [degF] Pinky Singh Other [employer] Other 10-11-2022 11:35-0500 Body weight 126.1 kg Pinky Singh Other [employer] Other 10-11-2022 11:35-0500 Respiratory rate 18 /min Pinky Singh Other [employer] Other 10-11-2022 11:35-0500 SaO2% (BldA) [Mass fraction] 98 % Pinky Singh Other [employer] Other Encounters Encounter Date Encounter Type Care Provider Facility Start: 05-24-2025 End: 05-24-2025 Orders Only Bethany Lundy LPN [facility] Comment on above: Acute palmoplantar p ustular psoriasis (Primary Dx); Chronic hypertension affecting ; Severe obesity due to excess calories affecting , antepartum ([facility]); Hypertension affecting in second trimester Start: 05-23-2025 End: 05-23-2025 ambulatory RODY QIU Not Available Start: 05-23-2025 End: 05-23-2025 Bamboo flowsheet Rody Qiu CONTAINER PACKER OPERATOR Work Phone: [facility] Start: 05-23-2025 End: 05-25-2025 Bamboo flowsheet Rody Qiu NP Work Phone: [facility] Start: 05-23-2025 End: 05-25-2025 Clinisync Result Encounter Caesar Heatho DO Work Phone: [facility] Unsolicited Start: 05-17-2025 End: 05-17-2025 Office consultation new/estab patient 60 min Clair Hare MD Work Phone: [facility] Comment on above: Chronic hypertension affecting (Primary Dx); Acute palmoplantar pustular psoriasis; Severe obesity due to excess calories affecting , antepartum ([facility]); 20 weeks gestation of Start: 05-17-2025 End: 05-17-2025 Orders Only Bethany Lundy LPN [facility] Comment on above: Acute palmoplantar p ustular psoriasis (Primary Dx); Chronic hypertension affecting ; Severe obesity due to excess calories affecting , antepartum ([facility]); Hypertension affecting in second trimester Start: 04-29-2025 End: 04-29-2025 Emergency department patient visit [facility] Start: 04-25-2025 End: 04-25-2025 Bamboo flowsheet Caesar Davie DO Work Phone: [facility] Start: 04-25-2025 End: 04-25-2025 Bamboo flowsheet Caesar Davie DO Work Phone: [facility] Start: 04-25-2025 End: 04-25-2025 Office outpatient visit 15 minutes Caesar Cabrerazio DO Work Phone: [facility] Comment on above: Screening, , for anatomic survey ([facility]); Second trimester ([facility]); 17 weeks gestation of ([facility]); Screen for STD (sexually transmitted disease); Need for maternal serum alpha-protein (MSAFP) screening ([facility]); induced hypertension, antepartum ([facility]); Vitamin D deficiency Start: 04-25-2025 End: 04-25-2025 ambulatory CAESAR DAVIE Not Available Start: 04-23-2025 End: 04-23-2025 Chart abstracting Yordy Cruz MD Work Phone: [facility] Start: 04-21-2025 End: 04-21-2025 Clinisync Result Encounter Caesar Davie DO Work Phone: [facility] Unsolicited Start: 04-21-2025 End: 04-21-2025 Clinisync Result Encounter Caesar Davie DO Work Phone: [facility] Unsolicited Start: 04-19-2025 End: 04-19-2025 Orders Only Joann Moise RN [facility] Comment on above: Hypertension affecti ng in second trimester (Primary Dx) Start: 04-17-2025 End: 04-17-2025 Clinisync Result Encounter Caesar Davie DO Work Phone: [facility] Unsolicited Start: 04-17-2025 End: 04-17-2025 Clinisync Result Encounter Caesar Davie DO Work Phone: [facility] Unsolicited Start: 04-11-2025 End: 04-11-2025 Bamboo flowsheet Caesar Davie DO Work Phone: [facility] Start: 04-11-2025 End: 04-11-2025 Bamboo flowsheet Caesar Davie DO Work Phone: [facility] Start: 04-11-2025 End: 04-11-2025 Office outpatient visit 15 minutes Caesar Davie DO Work Phone: [facility] Comment on above: 15 weeks gestation [...] flowsheet Caesar Davie DO Work Phone: [facility] Start: 03-28-2025 End: 03-28-2025 Office outpatient visit 15 minutes Caesar Davie DO Work Phone: [facility] Comment on above: 13 weeks gestation o f ([facility]); Second trimester ([facility]); Acute nonintractable headache, unspecified headache type [...] encounter status Robbie Lopez MD Work Phone: [facility] Work Phone: Start: 01-03-2025 End: 01-03-2025 ambulatory ROBBIE LOPEZ [facility] Start: 01-03-2025 End: 01-03-2025 Encounter for preprocedural laboratory examination ROBBIE LOPEZ [facility] Start: 12-18-2024 End: 12-26-2024 External Result Encounter Caesar Davie DO Work Phone: [facility] Unsolicited Start: 12-18-2024 End: 12-26-2024 External Result Encounter Caesar Davie DO Work Phone: [facility] Unsolicited Start: 12-18-2024 End: 12-18-2024 Patient encounter procedure Caesar Davie DO Work Phone: [facility] Comment on above: Skin mole Start: 12-18-2024 End: 12-18-2024 ambulatory Caesar Davie [facility] Work Phone: Start: 12-18-2024 End: 12-18-2024 Departed Referred Caesar Davie DO Work Phone: [facility] Start: 12-17-2024 End: 12-18-2024 Clinisync Result [...] Result Encounter Caesar Davie DO Work Phone: [facility] External Department Unsolicited Start: 11-16-2024 End: 11-17-2024 Clinisync Result Encounter Caesar Davie DO Work Phone: [facility] External Department Unsolicited Start: 11-16-2024 End: 11-17-2024 Clinisync Result Encounter Caesar Davie DO Work Phone: [facility] Unsolicited Start: 11-12-2024 End: 11-12-2024 Office outpatient visit 15 minutes Caesar Davie DO Work Phone: [facility] Comment on above: Encounter for [...] 11-03-2024 End: 11-04-2024 Emergency department patient visit [facility] Start: 10-18-2024 End: 10-19-2024 Clinisync Result Encounter [...] original px Caesar Davie DO Work Phone: [facility] Comment on above: Postoperative visit; S/P laparoscopic procedure Start: 06-11-2024 End: 06-11-2024 Bamboo flowsheet Caesar Davie DO Work Phone: [facility] Start: 06-11-2024 End: 06-11-2024 Bamboo flowsheet Caesar Davie DO Work Phone: [facility] Start: 06-11-2024 End: 06-11-2024 ambulatory CAESAR DAVIE Not Available Start: 06-01-2024 End: 06-01-2024 Clinisync Result Encounter Caesar Davie DO Work Phone: [facility] External Department Unsolicited Start: 06-01-2024 End: 06-01-2024 Clinisync Result Encounter Caesar Davie DO Work Phone: [facility] External Department Unsolicited Start: 05-03-2024 End: 05-03-2024 Office outpatient visit 15 minutes Caesar Davie DO Work Phone: [facility] Comment on above: Pre-op examination; Pelvic pain in female; Fallopian tube disorder Start: 05-03-2024 End: 05-03-2024 Preprocedural examination done Caesar Davie DO Work Phone: [facility] Start: 04-24-2024 End: 04-24-2024 Clinisync Result Encounter Caesar Davie DO Work Phone: [facility] External Department Unsolicited Start: 04-24-2024 End: 04-24-2024 Clinisync Result Encounter Caesar Davie DO Work Phone: [facility] External Department Unsolicited Start: 04-10-2024 End: 04-10-2024 [...] 03-12-2024 End: 03-12-2024 Telephone encounter Sheyla Powell [facility] Start: 02-22-2024 End: 02-22-2024 Chart abstracting Scanning Provider External [facility] Start: 11-24-2023 End: 11-24-[address] [facility] Work Phone: Start: 11-24-2023 End: 11-24-2023 Patient encounter procedure [facility] Work Phone: Start: 10-11-2022 End: 10-11-2022 ambulatory Pinky Singh Other [employer] Other Start: 10-11-2022 Office outpatient ne w [...] hin layer prep mnl screen Bethany Raymundo SENIOR SUPPORT ENGINEER Work Phone: Plan of Treatment Date Care Activity Detail Author Start: 2042 Zoster Vaccines (1 of 2) Zoster Vaccines (1 of 2) [facility] Start: 12-11-2027 Screening for malignant neoplasm of cervix [facility] Start: 11-24-2027 Screening for malignant neoplasm of cervix [facility] Start: 05-17-2026 Adult BMI Screening Adult BMI Screening [facility] Start: 05-17-2026 Tobacco Screening Tobacco Screening [facility] Start: 12-16-2025 End: 12-16-2025 Patient encounter procedure [facility] Start: 11-23-2025 Screening for malignant neoplasm of cervix Pap Smear [facility] Start: 11-19-2025 Screening for malignant neoplasm of cervix Pap Smear [facility] Start: 11-03-2025 Tobacco Screening Tobacco Screening [facility] Start: 06-24-2025 End: 06-24-2025 Patient encounter procedure 06/24/2025 1:50 PM EST Routine [facility] [address] [place] [phone] Caesar Broderick DO [address] [place], [place] [id number] [facility] Start: 06-18-2025 End: 06-18-2025 Telemedicine consultation with patient 06/18/2025 2:00 PM EDT Telemedicine Maternal- Medicine at [facility] [address] [place] [address] Yordy Cruz MD [address] [place] [address] Maternal- Medicine at [facility] Start: 06-18-2025 End: 06-18-2025 Patient encounter procedure 06/18/2025 8:00 AM EDT Appointment [facility] [address] [place] [address] [facility] Start: 05-30-2025 End: 05-30-2025 Patient encounter procedure 05/30/2025 3:20 PM EDT [facility] [place] [facility] [address] [place] [phone] Rody Qiu, CONTAINER PACKER OPERATOR [address] [place] [phone] LIANA HEAD Start: 05-25-2025 End: 05-25-2025 Alpha fetoprotein, maternal Alpha fetoprotein, maternal Lab Routine Need for maternal serum alpha-protein (MSAFP) screening ([facility]) Expected: 05/25/2025 (Approximate), Expires: 05/25/2025 [facility] Comment on above: Expected: 05/25/2025 (Approximate), Expi res: 05/25/2025 Start: 05-23-2025 End: 05-23-2025 Patient encounter procedure 05/23/2025 2:30 PM EDT Routine LIANA HEAD [address] [address] Rody Qiu, CONTAINER PACKER OPERATOR [address] [place] [address] LIANA HEAD Start: 05-20-2025 End: 04-19-2026 [...] due to excess calories affecting , antepartum ([facility]) Hypertension affecting in second trimester Expected: 05/17/2025, Expires: 05/17/2026 [facility] Work Phone: Comment on above: Expected: 05/17/2025, Expires: Start: 05-17-2025 End: 05-17-2025 Patient encounter procedure [facility] Start: 04-25-2025 End: 04-25-2025 Patient encounter procedure LIANA Alicea Comment on above: Arrived Start: 04-22-2025 Influenza vaccination [facility] Start: 04-11-2025 End: 04-11-2026 Alanine aminotransferase [Enzymatic activity/volume] in Serum or Plasma ALT Lab Routine Gestational hypertension, antepartum (HHS-HCC) induced hypertension, antepartum (HHS-HCC) Expected: 04/11/2025 (Approximate), Expires: 04/11/2026 [facility] Comment on above: Expected: 04/11/2025 (Approximate), Expi res: 04/11/2026 Start: 04-11-2025 End: 04-11-2026 Aspartate aminotransferase [Enzymatic activity/volume] in Serum or Plasma AST Lab Routine Gestational hypertension, antepartum (HHS-HCC) induced hypertension, antepartum (HHS-HCC) Expected: 04/11/2025 (Approximate), Expires: 04/11/2026 [facility] Comment on above: Expected: 04/11/2025 (Approximate), Expi res: 04/11/2026 Start: 04-11-2025 End: 04-11-2026 CBC W Auto Differential panel - Blood CBC and differential Lab Routine Gestational hypertension, antepartum (HHS-HCC) induced hypertension, antepartum (HHS-HCC) Expected: 04/11/2025 (Approximate), Expires: 04/11/2026 [facility] Comment on above: Expected: 04/11/2025 (Approximate), Expi res: 04/11/2026 Start: 04-11-2025 End: 04-11-2026 Creatinine [Mass/volume] in Serum or Plasma Creatinine Lab Routine Gestational hypertension, antepartum (HHS-HCC) induced hypertension, antepartum (HHS-HCC) Expected: 04/11/2025 (Approximate), Expires: 04/11/2026 [facility] Work Phone: Comment on above: Expected: 04/11/2025 (Approximate), Expi res: 04/11/2026 Start: 04-11-2025 End: 04-11-2026 Lactate dehydrogenase [Enzymatic activity/volume] in Serum or Plasma by Lactate to pyruvate reaction Lactate dehydrogenase Lab Routine Gestational hypertension, antepartum (HHS-HCC) induced hypertension, antepartum (HHS-HCC) Expected: 04/11/2025, Expires: 04/11/2026 [facility] Comment on above: Expected: 04/11/2025, Expires: Start: 04-11-2025 End: 04-11-2026 Protein, urine, 24 hour Protein, urine, 24 hour Lab Routine Gestational hypertension, antepartum (HHS-HCC) induced hypertension, antepartum (HHS-HCC) Expected: 04/11/2025 (Approximate), Expires: 04/11/2026 [facility] Comment on above: Expected: 04/11/2025 (Approximate), Expi res: 04/11/2026 Start: 04-11-2025 End: 04-11-2026 Pt and ptt Pt and ptt Lab Routine Gestational hypertension, antepartum (HHS-HCC) induced hypertension, antepartum (HHS-HCC) Expected: 04/11/2025, Expires: 04/11/2026 [facility] Comment on above: Expected: 04/11/2025, Expires: Start: 04-11-2025 End: 04-11-2026 Urate [Mass/volume] in Serum or Plasma Uric acid Lab Routine Gestational hypertension, antepartum (HHS-HCC) induced hypertension, antepartum (HHS-HCC) Expected: 04/11/2025 (Approximate), Expires: 04/11/2026 [facility] Comment on above: Expected: 04/11/2025 (Approximate), Expi res: 04/11/2026 Start: 04-11-2025 End: 04-11-2026 Urea nitrogen [Mass/volume] in Serum or Plasma BUN Lab Routine Gestational hypertension, antepartum (HHS-HCC) induced hypertension, antepartum (HHS-HCC) Expected: 04/11/2025, Expires: 04/11/2026 [facility] Comment on above: Expected: 04/11/2025, Expires: Start: 04-11-2025 End: 04-11-2025 Patient encounter procedure [facility] Comment on above: Arrived Start: 03-28-2025 End: 03-28-2025 Patient encounter procedure [facility] Comment on above: Arrived Start: 03-13-2025 Adult BMI Screening Adult BMI Screening [facility] Start: 03-13-2025 Tobacco Screening Tobacco Screening [facility] Start: 03-01-2025 End: 03-01-2026 ABO/Rh ABO/Rh Lab Routine Missed menses , unspecified gestational age ([facility]) Expected: 03/01/2025 (Approximate), Expires: 03/01/2026 [facility] Comment on above: Expected: 03/01/2025 (Approximate), Expi res: 03/01/2026 Start: 03-01-2025 End: 03-01-2026 Blood type and Indirect antibody screen panel - Blood Type and screen Lab Routine Missed menses , unspecified gestational age ([facility]) Expected: 03/01/2025 (Approximate), Expires: 03/01/2026 [facility] Work Phone: Comment on above: Expected: 03/01/2025 (Approximate), Expi res: 03/01/2026 Start: 03-01-2025 End: 03-01-2026 Drugs of abuse panel - Urine by Screen method Rapid drug screen, urine Lab Routine , unspecified gestational age ([facility]) Encounter for supervision of normal first in first trimester ([facility]) Expected: 03/01/2025 (Approximate), Expires: 03/01/2026 [facility] Comment on above: Expected: 03/01/2025 (Approximate), Expi res: 03/01/2026 Start: 02-03-2025 End: 04-05-2025 Choriogonadotropin ( test) [Presence] in Urine POCT , urine manually resulted Point of Care Testing Routine Encounter for preprocedural laboratory examination Expected: 02/03/2025 (Approximate), Expires: 04/05/2025 [facility] Work Phone: Comment on above: Expected: 02/03/2025 (Approximate), Expi res: 04/05/2025 Start: 02-03-2025 End: 01-03-2026 Sonohysterogram Sonohysterogram Procedures Routine Abnormal uterine bleeding Expected: 02/03/2025 (Approximate), Expires: 01/03/2026 [facility] Service Area Work Phone: Comment on above: Expected: 02/03/2025 (Approximate), Expi res: 01/03/2026 Start: 02-03-2025 End: 01-03-2026 US.doppler Uterus and Fallopian tubes W saline IU US sonohysterogram Imaging Routine Abnormal uterine bleeding Expected: 02/03/2025 (Approximate), Expires: 01/03/2026 [facility] Work Phone: Comment on above: Expected: 02/03/2025 (Approximate), Expi res: 01/03/2026 Start: 12-18-2024 End: 12-18-2024 Patient encounter procedure 12/18/2024 1:30 PM EDT Procedure Visit [facility] [address] [place] [phone] Caesar Broderick, DO [address] [place] [address] [facility] Start: 12-18-2024 [facility] Start: 12-10-2024 End: 12-10-2024 Patient encounter procedure [facility] Comment on above: Arrived Start: 11-12-2024 End: 11-12-2024 Patient encounter procedure [facility] Comment on above: Arrived Start: 07-23-2024 End: 07-23-2024 Patient encounter procedure 07/23/2024 1:00 PM EST Office Visit [facility] [address] [place] [phone] Caesar Broderick, DO [address] [place] [address] [facility] Start: 06-11-2024 End: 06-11-2024 Patient encounter procedure 06/11/2024 2:20 PM EDT Office Visit [facility] [address] [place] [phone] Caesar Broderick, DO [address] [place] [address] Arrived [facility] Comment on above: Arrived Start: 06-01-2024 End: 06-01-2024 Patient encounter procedure 06/01/2024 8:30 AM EDT Procedure Visit [facility] Caesar Broderick, DO [address] [place] [address] [facility] Start: 05-03-2024 End: 05-03-2024 Patient encounter procedure 05/03/2024 11:40 AM EDT Consult [facility] [address] [phone] Caesar Broderick, DO [address] [place] [address] [facility] Start: 04-22-2024 COVID-19 Vaccine ( season) COVID-19 Vaccine ( season) [facility] Start: 04-22-2024 Influenza vaccination [facility] Start: 04-10-2024 End: 04-10-2025 Antimullerian hormone (AMH) Antimullerian hormone (AMH) Lab Routine PCOS (polycystic ovarian syndrome) Expected: 04/10/2024 (Approximate), Expires: 04/10/2025 [facility] Comment on above: Expected: 04/10/2024 (Approximate), Expi res: 04/10/2025 Start: 04-10-2024 End: 04-10-2025 DHEA DHEA Lab Routine PCOS (polycystic ovarian syndrome) Expected: 04/10/2024 (Approximate), Expires: 04/10/2025 [facility] Comment on above: Expected: 04/10/2024 (Approximate), Expi res: 04/10/2025 Start: 04-10-2024 End: 04-10-2025 US for US PELVIS-TRANSVAG IF INDICATED Imaging Routine PCOS (polycystic ovarian syndrome) Pelvic pain in female Expected: 04/10/2024 (Approximate), Expires: 04/10/2025 [facility] Comment on above: Expected: 04/10/2024 (Approximate), Expi res: 04/10/2025 Start: 04-10-2024 End: 04-10-2024 Patient encounter procedure 04/10/2024 9:10 AM EDT Office Visit [facility] [address] [address] Davie Caesar, [address] [place] [address] Arrived [facility] Comment on above: Arrived Start: 03-13-2024 End: 03-13-2024 Patient encounter procedure 03/13/2024 11:00 AM EDT Office Visit [facility] [address] [place] [address] James Fraire MD [address] [place] [address] [facility] Start: 01-21-2024 Adult BMI Screening Adult BMI Screening [facility] Start: 01-21-2024 Tobacco Screening Tobacco Screening [facility] Start: 2014 DTaP/Tdap/Td Vaccines (1 - Tdap) DTaP/Tdap/Td Vaccines (1 - Tdap) [facility] Start: 2013 Screening for malignant neoplasm of cervix HPV/Cotest [facility] Start: 2011 DTaP,Tdap and Td Vaccines (1 - Tdap) DTaP,Tdap and Td Vaccines (1 - Tdap) [facility] Start: 2011 Hepatitis B Vaccines (1 of 3 - 19+ 3-dose series) Hepatitis B Vaccines (1 of 3 - 19+ 3-dose series) [facility] Start: 2010 Adult BMI Follow Up Plan Adult BMI Follow Up Plan [facility] Start: 2010 Hepatitis C screening Hepatitis C Screening [facility] Start: 2005 Varicella vaccination Varicella Vaccines (1 of 2 - 13+ 2-dose series) [facility] Start: 2004 Depression Screening Depression Screening [facility] Start: 1993 MMR Vaccines (1 of 1 - Standard series) MMR Vaccines (1 of 1 - Standard series) [facility] Start: 1992 HIV screening HIV Screening [facility] Start: 1992 Lipid panel Lipid Panel [facility] Start: 1992 Yearly Adult Physical Yearly Adult Physical [facility] Bacteria identified in Urine by Culture Urine culture Microbiology Routine Missed menses Ordered: 03/01/2025 [facility] Comment on above: Ordered: 03/01/2025 CBC W Auto Different ial panel - Blood CBC and differential Lab Routine PCOS (polycystic ovarian syndrome) Ordered: 04/10/2024 [facility] Comment on above: Ordered: 04/10/2024 CBC W Auto Different ial panel - Blood CBC and differential Lab Routine Missed menses , unspecified gestational age ([facility]) Ordered: 03/01/2025 [facility] Comment on above: Ordered: 03/01/2025 CHLAMYDIA TRACHOMATI S (GENITO/STI) CHLAMYDIA TRACHOMATIS (GENITO/STI) Lab Routine Screen for STD (sexually transmitted disease) Ordered: 04/25/2025 [facility] Comment on above: Ordered: 04/25/2025 End: 05-17-2026 Creatinine, urine, 24 hour Creatinine, urine, 24 hour Lab Routine Chronic hypertension affecting 20 weeks gestation of 1 Occurrences starting 05/17/2025 until 05/17/2026 [facility] Comment on above: 1 Occurrences starting 05/17/2025 until 05/17/2026 Cytology Cervical or vaginal smear or scraping study Pap Smear Pathology and Cytology Routine Well woman exam with routine gynecological exam Ordered: 12/10/2024 [facility] Work Phone: Comment on above: Ordered: 12/10/2024 DHEA-sulfate DHEA-sulfate Lab Routine PCOS (polycystic ovarian syndrome) Ordered: 04/10/2024 [facility] Comment on above: Ordered: 04/10/2024 Follicle stimulating hormone Follicle stimulating hormone Lab Routine PCOS (polycystic ovarian syndrome) Ordered: 04/10/2024 [facility] Comment on above: Ordered: 04/10/2024 hCG, quantitative, hCG, quantitative, Lab Routine PCOS (polycystic ovarian syndrome) Ordered: 04/10/2024 [facility] Work Phone: Comment on above: Ordered: 04/10/2024 Hemoglobin A1c/Hemoglobin.total in Blood Hemoglobin A1c Lab Routine Pelvic pain in female Abnormal uterine bleeding (AUB) Ordered: 04/10/2024 [facility] Comment on above: Ordered: 04/10/2024 Hemoglobin A1c/Hemoglobin.total in Blood Hemoglobin A1c Lab Routine Missed menses , unspecified gestational age ([facility]-HCC) Ordered: 03/01/2025 [facility] Comment on above: Ordered: 03/01/2025 Hepatitis B virus matt rface Ag [Presence] in Serum or Plasma by Immunoassay Hepatitis B surface antigen Lab Routine Missed menses , unspecified gestational age ([facility]HS-HCC) Ordered: 03/01/2025 [facility] Comment on above: Ordered: 03/01/2025 Hepatitis C virus Ab [Presence] in Serum or Plasma by Immunoassay Hepatitis C antibody Lab Routine Missed menses , unspecified gestational age ([facility]HS-HCC) Ordered: 03/01/2025 [facility] Comment on above: Ordered: 03/01/2025 HIV-1/HIV-2 antigen/antibody combination immunoassay HIV-1 and HIV-2 antibodies Lab Routine Missed menses , unspecified gestational age ([facility]HS-HCC) Ordered: 03/01/2025 [facility] Comment on above: Ordered: 03/01/2025 Human papilloma viru s DNA [Presence] in Unspecified specimen by Probe with amplification HPV DNA probe, amplified Microbiology Routine Well woman exam with routine gynecological exam Ordered: 12/10/2024 [facility] Comment on above: Ordered: 12/10/2024 Luteinizing hormone Luteinizing hormone Lab Routine PCOS (polycystic ovarian syndrome) Ordered: 04/10/2024 [facility] Comment on above: Ordered: 04/10/2024 End: [...] weeks gestation of 05/17/2025 9:54 AM EDT [facility] Neisseria gonorrhoea e DNA [Presence] in Unspecified specimen by PEACE with probe detection Neisseria gonorrhea DNA probe, direct Lab Routine Screen for STD (sexually transmitted disease) Ordered: 04/25/2025 [facility] Comment on above: Ordered: 04/25/2025 End: 05-17-2026 Protein, urine, 24 hour Protein, urine, 24 hour Lab Routine Chronic hypertension affecting 20 weeks gestation of 1 Occurrences starting 05/17/2025 until 05/17/2026 [facility] Comment on above: 1 Occurrences starting 05/17/2025 until 05/17/2026 Reagin Ab [Presence] in Serum by RPR RPR Lab Routine Missed menses , unspecified gestational age ([facility]) Ordered: 03/01/2025 [facility] Comment on above: Ordered: 03/01/2025 Rubella antibody, IgG Rubella an tibody, IgG Lab Routine Missed menses , unspecified gestational age ([facility]) Ordered: 03/01/2025 [facility] Comment on above: Ordered: 03/01/2025 SURESWAB(R) ADVANCED VAGINITIS PLUS, TMA SURESWAB(R) ADVANCED VAGINITIS PLUS, TMA Pathology and Cytology Routine Screen for STD (sexually transmitted disease) Ordered: 04/25/2025 [facility] Work Phone: Comment on above: Ordered: 04/25/2025 Thyrotropin [Units/v olume] in Serum or Plasma TSH Lab Routine PCOS (polycystic ovarian syndrome) Ordered: 04/10/2024 [facility] Comment on above: Ordered: 04/10/2024 Thyroxine (T4) free [Mass/volume] in Serum or Plasma T4, free Lab Routine PCOS (polycystic ovarian syndrome) Ordered: 04/10/2024 [facility] Comment on above: Ordered: 04/10/2024 Payers Date Payer Category Payer Self-pay 2022 Medicaid [id number] 2022 Medicaid [id number] 2. [id number] 1992 Unknown [id number] 2.16. [id number] 1992 Unknown [id number] 2.16. [id number] 1992 Unknown [id number] 2.16. 840.1.111761.3.579.2.1285 1992 Unknown [id number] 2.16. [id number] 1992 Unknown [id number] 2.16. 840.1.698194.3.579.2.128 1992 Unknown [id number] 2.16.8 40.1.455821.3.579.2.1258 1992 Unknown [id number] 2.16.8 40.1.921095.3.579.2.1258 1992 Unknown [id number] 2.16.8 40.1.899541.3.579.2.1258 1992 Unknown [id number] 2.16.8 40.1.935722.3.579.2.1258 1992 Unknown [id number] 2.16.8 40.1.191363.3.579.2.1258 1992 Unknown [id number] 2.16.8 40.1.952791.3.579.2.1258 1992 Unknown [id number] 2.16.84 0.1.019230.3.579.2.1258 1992 Unknown [id number] 2.16.84 0.1.693453.3.579.2.1258 1992 Unknown [id number] 2.16.84 0.1.109364.3.579.2.1258 1992 Unknown [id number] 2.16.84 0.1.680438.3.579.2.1258 1992 Unknown [id number] 2.16.84 0.1.504699.3.579.2.1258 Unknown [id number] 2.16.8 [id number] Social History Date Type Detail Facility Start: 02-22-2024 End: 05-17-2025 [facility] At [facility] [employer] Other Start: 1990 Sex Assigned At Female F [facility] Tobacco smoking status NDIS Tobacco smoking consumption unknown [facility] Start: 1990 Sex assigned at Not on file [employer] [facility] Start: 10-09-2022 End: 01-03-2025 Tobacco smoking status [facility] Never smoked tobacco [facility] Start: 10-09-2022 End: 01-03-2025 Tobacco use and exposure Smokeless tobacco non-user [facility] Start: 02-22-2024 End: 05-17-2025 Alcoholic beverage intake Ex-drinker (finding) [facility] Start: 02-22-2024 End: 05-17-2025 History of Social function [facility] Within the past 12 months we worried whether our food would run out before we got money to buy more. Never True [facility] 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 at 20w2d [...] previously recommended threshold of 160/110. Reference: PMID: [id number], 2021. Blood pressures do increase as progresses [...] preeclampsia prevention as is recommended by the [place] [employer] Committee Opinion No. 743. [...] patient is in complete care of her manager quality compliance. Patient does have ultrasound and office visit scheduled with us. Thank you for allowing me to participate in the care of Chayo Ramires. If there any questions please do not hesitate to contact us. Yordy Cruz MD Maternal- Medicine [facility] [address] [place] [address] This document was created with kidthing technology. Though I make every effort to review the dictation as it is transcribed, on occasion the spoken word can be misinterpreted by the technology leading to inappropriate words, phrases, or sentences. This note is addressed to the requesting provider as a consultation for clinical guidance. Specific medical abbreviations are occasionally used and those are generally approved by the [place]?Board of?Obstetrics and?Gynecology?as well as?Rama tapia abbreviations. The above plan of care was based solely on the diagnoses for which a consultation was requested. ?More frequent testing may be indicated based on her other medical/obstetrical conditions. The management of other or medical conditions is beyond the scope of requested consultation and will continue to be followed by the primary manager quality compliance or primary care provider. Note to patient: [...] Blood drawn for cell-free DNA testing per [facility] phlebotomy. Patient tolerated well. documented in this encounter [facility] 04-25-2025 History of Present illness Narrative [...] (polycystic ovarian syndrome) 07/30/2024 induced hypertension, antepartum ([facility]) 04/25/2025 Resolved Ambulatory Problems Diagnosis Date Noted [...] nursing note reviewed. Exam conducted with a tea bag packer present. Vitals: Estimated body mass index is 42.88 kg/m as calculated from the following: Height as of 06/11/24: 5' 8 . Weight as of this encounter: 282 lb. BP: 138/82 Patient's last menstrual period was 12/26/2024. ASSESSMENT & PLAN ICD-10-CM 1. Screening, , for anatomic survey ([facility]) Z36.89 CANCELED: US OB 14+ weeks anatomy scan 2. Second trimester ([facility]) Z34.92 POCT urinalysis dipstick manually resulted 3. 17 weeks gestation of ([facility]) Z3A.17 4. Screen for STD (sexually transmitted disease) Z11.3 SURESWAB(R) ADVANCED VAGINITIS PLUS, TMA CHLAMYDIA TRACHOMATIS (GENITO/STI) Neisseria gonorrhea DNA probe, direct 5. Need for maternal serum alpha-protein (MSAFP) screening ([facility]) Z36.1 Alpha fetoprotein, maternal Alpha fetoprotein, maternal 6. induced hypertension, antepartum ([facility]) O13.9 7. Vitamin D deficiency E55.9 Return [...] scheduled MFM appointment on 05/13/25. Documented by Rody Qiu NP on behalf of: Caesar Broderick DO documented in this encounter [facility] 04-11-2025 History of Present illness Narrative [...] nursing note reviewed. Exam conducted with a tea bag packer present. Vitals: Estimated body mass index is 42.63 kg/m as calculated from the following: Height as of 06/11/24: 5' 8 . Weight as of this encounter: 280 lb 6.4 oz. BP: 140/86 Patient's last menstrual period was 12/26/2024. ASSESSMENT & PLAN ICD-10-CM 1. 15 weeks gestation of ([facility]) Z3A.15 POCT urinalysis dipstick manually resulted 2. Second trimester ([facility]) Z34.92 POCT urinalysis dipstick manually resulted 3. Acute nonintractable headache, unspecified headache type R51.9 4. BP check Z01.30 Patient presents today for a routine obstetrics appointment. Patient is currently 15w1d with a Estimated Date of Delivery: 10/02/25. Patient is having persistent elevated HTN. Discussed patient being referred to [facility] for management and recommendations for Gestational HTN. Patient is agreeable with referral. Patient to be started on Labetalol 200mg BID. Patient given labs and 24 hour urine to have obtained for baseline testing. Patient aware that once lab results are obtained then referral will be completed, so then all results can be sent to [facility] at onetime. Patient to return to clinic in 4 weeks for routine OB appointment. Patient to reach out to office with any concerns/questions. Documented by Karoline Casillas LPN on behalf of: Caesar Broderick DO documented in this encounter [facility] 03-28-2025 History of Present illness Narrative [...] nursing note reviewed. Exam conducted with a tea bag packer present. Vitals: Estimated body mass index is 42.29 kg/m as calculated from the following: Height as of 06/11/24: 5' 8 . Weight as of this encounter: 278 lb 1.9 oz. BP: 138/80 Patient's last menstrual period was 12/26/2024. ASSESSMENT & PLAN ICD-10-CM 1. 13 weeks gestation of ([facility]) Z3A.13 POCT urinalysis dipstick manually resulted 2. Second trimester ([facility]) Z34.92 POCT urinalysis dipstick manually resulted magnesium [...] Caesar Broderick DO documented in this encounter [facility] 03-01-2025 History of Present illness Narrative [...] dipstick manually resulted , unspecified gestational age ([facility]) - Type and screen; Future - ABO/Rh; Future - CBC and differential - Hemoglobin A1c - RPR - Rubella antibody, IgG - Hepatitis B surface antigen - Hepatitis C antibody - HIV-1 and HIV-2 antibodies - Rapid drug screen, urine; Future Encounter for supervision of normal first in first trimester [facility] - Rapid drug screen, urine; Future 9 weeks gestation of ([facility]) Nurse Note: Pt uncertain of doing the [place] [employer] to one. Advised pt if she does to make sure both labs and [place] is done at the same time. PVU. Pt did state she had a Vit. D deficiency and has a h/o high blood pressure with G1. 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 Tadalafil - 10mg as needed Injuries: No STD: No Please select all that are applicable: SA: Yes SA Results: Yes -Done at [facility] 2023- reports was told normal, [...] history on file. documented in this encounter [facility] Work Phone: 01-03-2025 Instructions Robbie Lopez [...] 01/03/2025 11:05 AM documented in this encounter [facility] Work Phone: 12-18-2024 History of Present [...] nursing note reviewed. Exam conducted with a tea bag packer present. Vitals: Estimated body mass index is [...] after allowing sufficient time to take affect. pickers material handlers and scissors used to remove affected area. Placed in formalin and sent to pathology. Post-procedure instructions given. Follow Up: as needed Documented by Kita Griggs LPN on behalf of: Caesar Broderick DO documented in this encounter [facility] 12-10-2024 History of Present illness Narrative [...] nursing note reviewed. Exam conducted with a tea bag packer present. Vitals: Estimated body mass index is [...] Caesar Broderick DO documented in this encounter [facility] 11-12-2024 History of Present illness Narrative [...] Caesar Broderick DO documented in this encounter [facility] 07-23-2024 History of Present illness Narrative [...] nursing note reviewed. Exam conducted with a tea bag packer present. Vitals: Estimated body mass index is [...] Caesar Broderick DO documented in this encounter [facility] 06-11-2024 History of Present illness Narrative [...] nursing note reviewed. Exam conducted with a tea bag packer present. Vitals: Estimated body mass index is [...] Caesar Broderick DO documented in this encounter [facility] 05-03-2024 History of Present illness Narrative Reason for Appointment: Patient ID: Chayo Ramires is a 34 y.o. female who presents for Pre-op Visit Patient presents today for Pre Op appointment. Patient is scheduled to undergo Diagnostic Laparoscopy, possible FLAKITO, possible FOE, possible BSO, possible Chromopertubation on 06/01/[address] Broderick at [facility]. MEDICATIONS Current Outpatient Medications Medication [...] nursing note reviewed. Exam conducted with a tea bag packer present. Vitals: There is no height or [...] reviewed, and patient is to proceed to [facility] OR. Follow Up: Patient is to follow up between 1-2 weeks post operative to assess proper healing and recovery from procedure. Documented by Karoline Casillas LPN on behalf of: Caesar Broderick DO documented in this encounter [facility] 08-20-2024 History of Present illness Narrative Reason for [...] nursing note reviewed. Exam conducted with a tea bag packer present. 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 documented in this encounter [facility] 03-12-2024 Telephone encounter Note Left message for patient to remind them to bring their most current medication list with them to their appointment. [facility] 10-11-2022 Evaluation note Encounter Date Diagnosis [...] the onset of your symptoms of COVID [employer] Other Chief complaint+Reason for visit Narrative* Chief Complaint sinus pressure, coug h Reason for Visit Contact with and (matt spected) exposure to covid-19 Sore throat Sinusitis [facility] Work Phone: Evaluation note* Diagnosis Onset Date Resolution Status Contact with and (suspected) exposure to covid-19 acute Sore throat acute Sinusitis noneactive [facility] Work Phone: Evaluation note* Diagnosis Postoperative visit S/P laparoscopic procedure Other postprocedural status documented in this encounter [facility] HealthcareEvaluation note* Diagnosis PCOS (polycystic ovarian syndrome) Polycystic ovaries Encounter for fertility planning documented in this encounter [facility]* Diagnosis Pre-op examination Pelvic pain in female Unspecified symptom associated with female genital organs Fallopian tube disorder Unspecified noninflammatory disorder of ovary, fallopian tube, and broad ligament documented in this encounter [facility] HealthcareEvaluation note* Diagnosis Encounter for fertility planning PCOS (polycystic ovarian syndrome) Polycystic ovaries Pelvic pain in female Unspecified symptom associated with female genital organs Abnormal uterine bleeding (AUB) documented in this encounter [facility] HealthcareEvaluation note* Diagnosis Heart palpitations- Primary Palpitations [facility] Diagnosis Encounter for fertility planning Acute cystitis without hematuria PCOS (polycystic ovarian syndrome) Polycystic ovaries Fallopian tube disorder Unspecified noninflammatory disorder of ovary, fallopian tube, and broad ligament documented in this encounter [facility]* Diagnosis Well woman exam with routine gynecological exam Routine gynecological examination documented in this encounter [facility] HealthcareEvaluation note* Diagnosis Skin mole documented in this encounter [facility] HealthcareEvaluation noteNo assessment information [facility] Work [facility]: [facility] note* Diagnosis Encounter for preprocedural laboratory examination- Primary Abnormal uterine bleeding Unspecified disorder of menstruation and other abnormal bleeding from female genital tract documented in this encounter [facility] Work Phone: Evaluation note* Diagnosis Amenorrhea Absence of menstruation Missed menses , unspecified gestational age ([facility]) Encounter for supervision of normal first in first trimester ([facility]) 9 weeks gestation of ([facility]) Vitamin D deficiency History of hypertension Personal history of other diseases of circulatory system documented in this encounter [facility] HealthcareEvaluation note* Diagnosis 13 weeks gestation of ([facility]) Second trimester ([facility]) state, incidental Acute nonintractable headache, unspecified headache type documented in this encounter [facility] HealthcareEvaluation note* Diagnosis 15 weeks gestation of ([facility]) Second trimester ([facility]) state, incidental Acute nonintractable headache, unspecified headache type BP check Screening for hypertension Gestational hypertension, antepartum ([facility]) induced hypertension, antepartum ([facility]) Transient hypertension of , antepartum documented in this encounter [facility] HealthcareEvaluation note* Diagnosis Hypertension affecting in second trimester- Primary documented in this [facility]* Diagnosis Screening, , for anatomic survey ([facility]) Encounter for anatomic survey Second trimester ([facility]) state, incidental 17 weeks gestation of ([facility]) Screen for STD (sexually transmitted disease) Screening examination for venereal disease Need for maternal serum alpha-protein (MSAFP) screening ([facility]) induced hypertension, antepartum ([facility]) Transient hypertension of , antepartum Vitamin D deficiency documented in this encounter [facility] HealthcareEvaluation note* Diagnosis Chronic 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 Severe obesity due to excess calories affecting , antepartum ([facility]) 20 weeks gestation of [facility] 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 Chronic hypertension affecting Severe obesity due to excess calories affecting , antepartum ([facility]) Hypertension affecting in second trimester documented in [facility] encounter [facility]* 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 Chronic hypertension affecting Severe obesity due to excess calories affecting , antepartum ([facility]) Hypertension affecting in second trimester documented in [...] on filedocumented in this encounter [facility] Family History No Family History Records Found Relationship Condition Age at Onset Recorded Date/T ellis father Hypertension Unknown Diabetes mellitus Unknown Not Specified Hypertension Unknown Relationship Condition Age at Onset Recorded Date/T ellis father Hypertension Unknown Diabetes mellitus Unknown mother Hypertension Unknown Advance Directives No Advanced Directives [...] Reason Comments Infertility 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/ PT LABS HM AT [facility] LABS AT PCP Specialty Diagnoses / Procedures Referred By Radha t Referred To Contact Cardiology Diagnoses Heart palpitations Sabiha Aviles, ROLL HAND-SENIOR SUPPORT ENGINEER [address] [place] [address] [facility] [address] [place] [address] Referral ID Status Reason Start Date Expiration Date Visits Requested Visits Authorized [id number] Pending Review Specialty Services Required 01/25/2024 01/24/2025 [...] November 24, 2023 End: November 24, 2023 Coremaker Relationship Specialty Start Date End Date Kromer, Judy PCP - [facility] CHECKROOM ATTENDANT 02/20/24 Coremaker Relationship Specialty Start Date End Date Kromer, Judy PCP - [facility] CHECKROOM ATTENDANT 02/20/24 Coremaker Relationship Specialty Start Date End Date Kromer, Judy PCP - [facility] CHECKROOM ATTENDANT 02/20/24 Coremaker Relationship Specialty Start Date End Date Kromer, Judy PCP - [facility] CHECKROOM ATTENDANT 02/20/24 Coremaker Relationship Specialty Start Date End Date Kromer, Judy PCP - [facility] CHECKROOM ATTENDANT 02/20/24 Coremaker Relationship Specialty Start Date End Date Kromer, Judy PCP - [facility] CHECKROOM ATTENDANT 02/20/24 Coremaker Relationship Specialty Start Date End Date Kromer, Judy PCP - [facility] CHECKROOM ATTENDANT 02/20/24 Coremaker Relationship Specialty Start Date End Date [facility] [address] [place], [place] PCP - General Family Medicine 11/12/22 Coremaker Relationship Specialty Start Date End Date [facility] [address] [place], [place] PCP - General Family Medicine 11/12/22 Coremaker Relationship Specialty Start Date End Date [facility] [place] [place] [facility] - General Family Medicine 11/12/22 Coremaker Relationship Specialty Start Date End Date Kromer, Judy PCP - [facility] CHECKROOM ATTENDANT 02/20/24 Coremaker Relationship Specialty Start Date End Date Kromer, Judy PCP - [facility] CHECKROOM ATTENDANT 02/20/24 Coremaker Relationship Specialty Start Date End Date Kromer, Judy PCP - [facility] CHECKROOM ATTENDANT 02/20/24 Coremaker Relationship Specialty Start Date End Date Kromer, Judy PCP - [facility] 02/20/24 Team Status: Inactive Member Role Status Dates Caesar Broderick DO Attending Provider Active Start : December 18, 2024 End: December 18, 2024 Coremaker Relationship Specialty Start Date End Date June Trinidad LPN Licensed Practical Nurse Reproductive Endocrinology and Infertility 01/01/25 Coremaker Relationship Specialty Start Date End Date Kromer, Judy PCP - [facility] 02/20/24 Coremaker Relationship Specialty Start Date End Date Kromer, Judy PCP - [facility] 02/20/24 Coremaker Relationship Specialty Start Date End Date Kromer, Judy PCP - [facility] 02/20/24 Coremaker Relationship Specialty Start Date End Date Kromer, Judy PCP - [facility] 02/20/24 Coremaker Relationship Specialty Start Date End Date Services, [facility] [address] [place] PCP - General Family Medicine 11/03/24 Coremaker Relationship Specialty Start Date End Date Services, [facility] [address] PCP - General Family Medicine 11/03/24 Coremaker Relationship Specialty Start Date End Date Kromer, Judy PCP - [facility] 02/20/24 Coremaker Relationship Specialty Start Date End Date Services, [facility] [address] PCP - General Family Medicine 11/03/24 Coremaker Relationship Specialty Start Date End Date Services, [facility] [address] PCP - General Family Medicine 11/03/24 Coremaker Relationship Specialty Start Date End Date [facility], [facility] [address] [place] PCP - General Family Medicine 11/03/24 Goals (unrecognized section and content) Goals may be documented in a n alternate section INFORMATION SOURCE (unrecogn ized section and content) DATE CREATED AUTHOR 12/29/2024 [facility] DATE CREATED AUTHOR AUTHOR'S ORGANIZ ATION 01/07/2025 [facility] DATE CREATED AUTHOR AUTHOR'S ORGANIZ ATION 05/01/2025 [facility] DATE CREATED AUTHOR AUTHOR'S ORGANIZ ATION 05/24/2025 [facility] DATE CREATED AUTHOR AUTHOR'S ORGANIZ ATION 05/28/2025 [facility] EPIC FOR RECORDS PERTAINING TO PATIENTS [...] BE BASED ON THE PRIMARY CLINICAL RECORDS. [employer] provides no warranty or guarantee of the accuracy or completeness of information in this document.
[2025-05-28 17:11] VITALS: TEMP 36.4
[2025-05-28 17:15] VITALS: BP 134/72; PULSE 78
[2025-05-28 17:19] VITALS: BP 125/70; PULSE 77
[2025-05-28 17:23] VITALS: BP 124/67; PULSE 74
[2025-05-28 18:11] LABS: Glucose Urine UA NEGATIVE (NEGATIVE)
[2025-05-28 18:15] LABS: Cast Seen? NONE SEEN #/LPF (NONE SEEN); Crystals Seen? None Seen #/HPF (None Seen)
== END 2025-05-28 18:20 | disposition home or self-care (01) ==
PROVIDERS: Admitting Provider Obstetrics & Gynecology; Visit Provider Obstetrics & Gynecology
DX: O16.9 Unspecified maternal hypertension, unspecified trimester (principal); Z3A.00 Weeks of gestation of pregnancy not specified
CPT/HCPCS: 81001; G0378; G0379

== ENCOUNTER 2025-06-20 21:01 | Observation (INO) | payer MEDICAID, SELFPAY ==
--- OUTSIDE RECORDS SUMMARY | 2024-05-24 11:00 | XMS_ITS ---
Author Organization [facility] vices Address [address] [place], [place] [address] Care Team Providers Care Residential Real Estate Assistant Name Role Phone Sabiha Aviles Primary Care Provider [phone] Noelle Chris Unavailable REASON FOR VISIT 3 mo Vit D Social History Sex Assigned At : Social History Observation Description Sex Assigned At Female Encounters Encounter Location Date Provider Diagnosis Main [address] [place], [place] [phone] 05/24/2024 Noelle Chris Plan Of Treatment Next Appt Details Provider Name:Judy Yepez , 08/20/2025 01:15:00 PM, [address] [place], [place], [address], Progress Notes * Chayo RAMIRESDOB: 2 (35 yo F)Acc No.[id number]:05/24/2024 Medical Note Patient: Trent VALLES Chayo Lockwood :?DANA PerezCDOB:1990???Age:34 Y???Sex:FemaleDate:05/24/2024hone:[phone]:[address] [facility], [place] [address], [place], [id number]:Sabiha Aviles Subjective: * Chief Complaints: * 1 . 3 mo Vit D. * Medical History: Objective: * Vitals: Assessment: Plan: * Treatment: * Billing Information: * Visit Code: * Procedure Codes: * Electronic signature of FABI Perez on 06/20/2025 at 09:06 PM EDT Sign off status: Pending * Provider: FABI Acevedo Date: Generated for Printing/Faxing/eTransmitting on:?06/20/2025 09:06 PM EDT
--- OUTSIDE RECORDS SUMMARY | 2024-06-25 09:45 | XMS_ITS ---
Author Organization [facility] vices Address [address] [place], [place] [address] Care Team Providers Care Wet Primer Powder Blender Name Role Phone Sabiha Aviles Primary Care Provider [phone] Judy Montenegro Unavailable [phone] REASON FOR VISIT 3mo. F/U Vit. D. Social History Sex Assigned At : Social History Observation Description Sex Assigned At Female Encounters Encounter Location Date Provider Diagnosis Main [address] [facility] [place] [id number] 06/25/2024 Judy Yepez Plan Of Treatment Next Appt Details Provider Name:Judy Yepez , 08/20/2025 01:15:00 PM, [address] [place], [id number], Progress Notes * Chayo RAMIRESDOB: 2 (35 yo F)Acc No.[id number]:06/25/2024 Medical Note Patient: Chayo DAWSON :?Judy WilkinsbridgerDOB:1990???Age:34 Y???Sex: FemaleDate:06/25/2024hone:[phone]:[address] [place] [address], [place] [address], [id number]:Sabiha Aviles Subjective: * Chief Complaints: * 1 . 3mo. F/U Vit. D.. * Medical History: Objective: * Vitals: Assessment: Plan: * Treatment: * Billing Information: * Visit Code: * Procedure Codes: * Electronic signature of SHANNA Baptiste on 06/20/2025 at 09:06 PM EDTSign off status: Pending * Provider: Gavin Yepez Date: 08/25/2023 Generated for Printing/Faxing/eTransmitting on:?06/20/2025 09:06 PM EDT
--- OUTSIDE RECORDS SUMMARY | 2024-06-25 11:00 | XMS_ITS ---
Author Organization [facility] vices Address [address] [place], [place] [address] Care Team Providers Care Stereotyper Apprentice Name Role Phone Sabiha Aviles Primary Care Provider [phone] REASON FOR VISIT 3mo. F/U Vit. D. Social History Sex Assigned At : Social History Observation Description Sex Assigned At Female Encounters Encounter Location Date Provider Diagnosis [address] [id number] 06/25 Sabiha Aviles Plan Of Treatment Next Appt Details Provider Name:Judy Yepez , 08/20/2025 01:15:00 PM, [address] [place], [place], [phone], Progress Notes * Chayo RAMIRESDOB: 2 (35 yo F)Acc No.[id number]:06/25/2024 Medical Note Patient: Trent VALLES Chayo Lockwood :?Sabiha AvilesDOB:1990???Age:34 Y???Sex: FemaleDate:06/25/2024hone:[phone]:[address] [place] [address], [address] [place], [place] [address] Subjective: * Chief Complaints: * 1 . 3mo. F/U Vit. D.. * Medical History: Objective: * Vitals: Assessment: Plan: * Treatment: * Billing Information: * Visit Code: * Procedure Codes: * Electronic signature of THEA Ward on 06/20/2025 at 09:05 PM EDTSign off status: Pending * Provider: Jill Aviles Date: 08/25/2023 Generated for Printing/Faxing/eTransmitting on:?06/20/2025 09:05 PM EDT
--- OUTSIDE RECORDS SUMMARY | 2025-03-05 09:15 | XMS_ITS ---
Author Organization [facility] vices Address [address] [place], [place] [phone] Care Team Providers Care Golf Professional Name Role Phone Sabiha Aviles Primary Care Provider [phone] REASON FOR VISIT 3m depression, anxiety Social History Sex Assigned At : Social History Observation Description Sex Assigned At Female Encounters Encounter Location Date Provider Diagnosis East [address] [place] [phone] 03/05 Sabiha Aviles Plan Of Treatment Next Appt Details Provider Name:Judy Yepez , 08/20/2025 01:15:00 PM, [address] [place], [place], [phone], Progress Notes * Chayo RAMIRESDOB: 2 (35 yo F)Acc No.[id number]:03/05/2025 Medical Note Patient: Trent VALLES Chayo Lockwood :?Sabiha AvilesDOB:1990???Age:34 Y???Sex: FemaleDate:03/05/2025Phone:[phone]:[address] [facility], [address], [place], [place] Subjective: * Chief Complaints: * 1 . 3m depression, anxiety. * Medical History: Objective: * Vitals: Assessment: Plan: * Treatment: * Billing Information: * Visit Code: * Procedure Codes: * Electronic signature of THEA Ward on 06/20/2025 at 08:30 AM EDTSign off status: Pending * Provider: Jill Aviles Date: 0 03/05/2025 Generated for Printing/Faxing/eTransmitting on:?06/20/2025 08:30 AM EDT
--- OUTSIDE RECORDS SUMMARY | 2025-05-20 09:15 | XMS_ITS ---
Author Organization [facility] vices Address [address] [place], [place] [address] Care Team Providers Care Traffic Control Officer Name Role Phone Sabiha Aviles Primary Care Provider Noelle Chris Unavailable REASON FOR VISIT depression Social History Sex Assigned At : Social History Observation Description Sex Assigned At Female Encounters Encounter Location Date Provider Diagnosis Main [address] [place] [place], [place] [phone] 05/20/2025 Noelle Chris Plan Of Treatment Next Appt Details Provider Name:Judy Yepez , 08/20/2025 01:15:00 PM, [address] [place], [place], [phone], Progress Notes * Chayo RAMIRESDOB: 2 (35 yo F)Acc No.[id number]:05/20/2025 Medical Note Patient: Trent VALLES Chayo [place] :?DANA PerezCDOB:1990???Age:35 Y???Sex:FemaleDate:05/20/2025Phone:[phone]:[address] [facility], [place] [address], [facility]ENTER[facility]-[address]Nep:Sabiha Aviles Subjective: * Chief Complaints: * 1 . Depression. * Medical History: Objective: * Vitals: Assessment: Plan: * Treatment: * Billing Information: * Visit Code: * Procedure Codes: * Electronic signature of FABI Perez on 06/20/2025 at 08:30 AM EDT Sign off status: Pending * Provider: FABI Acevedo Date: 0 05/20/2025 Generated for Printing/Faxing/eTransmitting on:?06/20/2025 08:30 AM EDT
--- OUTSIDE RECORDS SUMMARY | 2025-05-30 15:20 | XMS_ITS | Encounter Summary ---
Author Organization [facility] Address [address] [place] [address] Care Team Providers Care Web Content Producer Name Role Phone Judy Caal Unavailable Unavailable Reason for Visit * ReasonCommentsRoutine Visit Encounter Details DateTypeDepartmentCare Team (Latest Contact Info)Jzsaxoalpqo96/09/2025 3:20 PM EDTRoutine [facility] [address] [place] [address] Rosie Qiu, LAND CHECKER [address] [place] [address] Chronic hypertension affecting ([facility]) (Primary Dx); Second trimester ([facility]); 22 weeks gestation of ([facility]) Social History Tobacco UseTypesPacks/DayYears UsedDateSmoking Tobacco: Never AssessedPHQ-2 AnswerDate RecordedPatient Health Questionnaire-2 Xihug744 Estimated Date of WgykqdjvGnvrdzvhQpk49/11/2026ased on last menstrual period of 12/26/2024Sex and Gender InformationValueDate RecordedSex Assigned at BirthNot on fileLegal QtpGzzgoo51/06/2024 9:48 AM EDTGender IdentityNot on fileSexual OrientationNot on filedocumented as of this encounter Last Filed Vital Signs Vital SignReadingTime TakenCommentsBlood Ntocaenp431/8405/30/2025 4:31 PM EDT Pulse--Temperature--Respiratory Rate--Oxygen Saturation--Inhaled Oxygen Concentration--Vyosma739 kg (286 lb)05/30/2025 4:31 PM EDTHeight--Body Mass Index43.4906/11/2024 2:39 PM EDTdocumented in this encounter Functional Status * Over the past 2 weeks, how often have you been bothered by any of the following problems?QuestionAnswerDate of AssessmentAuthorLittle interest or pleasure in doing thingsNot at all06/04/2025 1:54 PM Bethany Venegas LPN Feeling down, depressed, or hopelessNot at all06/04/2025 1:54 PM Bethany Venegas LPNPatient Health Questionnaire-2 Ukner941 1:54 PM Bethany Venegas LPN documented as [...] (polycystic ovarian syndrome) 07/30/2024 induced hypertension, antepartum ([facility]) 04/25/2025 Vitamin D deficiency 05/23/2025 H/O pre-eclampsia in prior , currently ([facility]) 05/23/2025 Resolved Ambulatory Problems Diagnosis Date Noted [...] nursing note reviewed. Exam conducted with a marketing director assisted living present. Vitals: Estimated body mass index is 43.03 kg/m?? as calculated from the following: Height as of 06/11/24: 5' 8 . Weight as of 05/23/25: 283 lb. BP: Patient's last menstrual period was 12/26/2024. ASSESSMENT & PLAN ICD-10-CM 1. Second trimester ([facility]) Z34.92 2. 22 weeks gestation of ([facility]) Z3A.22 POCT urinalysis dipstick manually resulted Return [...] and blood pressure recheck. Documented by Rosie Qiu NP on behalf of: Rosie Qiu NP documented in this encounter Plan of Treatment DateTypeDepartmentCare Team (Latest Contact Info)Cnjkqpiovsh00/03/2025 1:50 PM ESTRoutine [facility] [address] [place] [address] [place] [phone] Caesar Broderick, [address] [place], [place] [phone] 12/16/2025 3:00 PM EDTOffice Visit [facility] [address] [place] [address] [place] [address] Caesar Broderick, DO [address] [place], [place] [phone] documented as of this encounter Procedures Procedure NamePriorityDate/TimeAssociated DiagnosisCommentsPOCT URINALYSIS CMIGQCPBAjxwasd45/09/2025 3:24 PM EDT 22 weeks gestation of ([facility]) documented in this encounter Results * POCT [...] Judy Caal PCP - [facility]02/20/24documented as of this encounter
--- OUTSIDE RECORDS SUMMARY | 2025-06-18 07:48 | XMS_ITS | Encounter Summary ---
Author Organization [facility] obiwon [facility] tem Address [facility]-[id number] [address] [place] [address] Care Team Providers Care Learning Facilitator Name Role Phone [facility], [facility] Primary Care Provider Reason for Referral * Diagnostic Imaging (Routine) - Pending ReviewSpecialtyDiagnoses / Procedures Referred By ContactReferred To ContactMaternal and Medicine Diagnoses 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 Severe obesity due to excess calories affecting , antepartum (CMS-HCC) Hypertension affecting in second trimester Procedures US [facility] with or without consult hSeila Cruz MD [address] [facility] [address] [place] [address] Phone: tel: fax: Maternal- Medicine at [facility] [address] [place] [address] Phone: tel: fax: Referral IDStatusReasonStart DateExpiration DateVisits RequestedVisits [id number] Review/ Reason for Visit * Diagnostic Imaging (Routine) - Pending ReviewSpecialtyDiagnoses / Procedures Referred By ContactReferred To ContactMaternal and Medicine Diagnoses 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 Severe obesity due to excess calories affecting , antepartum (CMS-HCC) Hypertension affecting in second trimester Procedures US [facility] with or without consult Sheila Cruz MD [address] [facility] [address] [place] [address] Phone: tel: fax: Maternal- Medicine at [facility] [address] [facility] [place] [address] Phone: tel: fax: Referral IDStatusReasonStart DateExpiration DateVisits RequestedVisits [id number] Review/ Encounter Details DateTypeDepartmentCare Team (Latest Contact Info)Hbakfyqczqo17/28/2025 7:48 AM EDT - 06/18/2025 11:59 PM EDTHospital Encounter [facility] [address] [place] [phone] Acute palmoplantar pustular psoriasis; Chronic hypertension affecting ; Severe obesity due to excess calories affecting , antepartum ([facility]); Hypertension affecting in second trimester Discharge Disposition: [...] money to get more.Never True05/17/2025Estimated Date of XhesdqmwMilfpsyrAri92/11/2026ased on last menstrual period of 12/26/2024Sex and Gender InformationValueDate RecordedSex Assigned at BirthNot on fileLegal Sex Jwyows8109/30/2022 2:11 PM ESTGender IdentityNot on fileSexual OrientationNot [...] Plan of Treatment DateTypeDepartmentCare Team (Latest Contact Info)Idrhwwyzlql71/09/2025 2:00 PM ESTOffice Visit Maternal- Medicine at [facility] [address] [place] [phone] Sheila Cruz MD [address] [facility] [address] [place] [address] documented as of this encounter Procedures Procedure NamePriorityDate/TimeAssociated DiagnosisCommentsUS [facility] OB FOLLOW-[facility], 1 FWMQFBchwozl52/28/2025 9:09 AM EDT 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 Severe obesity due to excess calories affecting , antepartum ([facility]) Hypertension affecting in second trimester documented in this encounter Results * [facility] OB FOLLOW-UP, 1 FETUS (06/18/2025 9:09 AM EDT)Anatomical Region LateralityModalityOB-GYNUltrasoundSpecimen (Source)Anatomical Location / LateralityCollection Method / VolumeCollection TimeReceived Time06/18/2025 8:05 AM EDT Narrative 06/18/2025 9:41 AM EDT NAME: ??PAULA HUGHES : 1990 SEX: F Accession Number: [id number] ORDERING PHYSICIAN: SHEILA CRUZ REFERRING PHYSICIAN: ISRAEL LUNA Coding Procedures ? 91920: Ultrasound, uterus, real time with image documentation, follow up,transabdominal ? approach per fetus Indication Screening for follow-up survey, Anxiety , Depression, Obesity in , History of gestationalhypertension, Obesity in , Chronic hypertension affecting . History OB History ? 2. Para 1 ? [id number] Maternal Assessment Physical Exam ??Height 173 cm, [...] (oz) ? 15 oz EFW by: ?Hadlock (DAF-AZ-DV-FL) Extended Tibia ??37.8 mm 24w 2d 27% Gav[employer] Manager [employer]ing ? 4.7 mm CM ? 4.4 mm [...] Thorax RVOT view. LVOT view. 3-vessel view. 7-fjsggn-tfwjqys view. ? Right lung. Left lung. Abdomen [...] HUGHES : 1990 SEX: F Accession Number: [id number] ORDERING PHYSICIAN: SHEILA CRUZ REFERRING PHYSICIAN: ISRAEL LUNA Coding Procedures 23767: Ultrasound, uterus, real time with image documentation, follow up, transabdominal approach per fetus Indication Screening for follow-up survey, Anxiety , Depression, Obesity in , History of gestational hypertension, Obesity in , Chronic hypertension affecting . History OB History 2. Para 1 [id number] Maternal Assessment Physical Exam Height 173 cm, [...] EFW (oz) 15 oz EFW by: Hadlock (DAH-JZ-PD-FL) Extended Tibia 37.8 mm 24w 2d 27% Gavino Manager [employer]ing 4.7 mm CM 4.4 mm 8% Nicolaides [...] Thorax RVOT view. LVOT view. 3-vessel view. 3-smowbl-inbhrnrjxny. Right lung. Left lung. Abdomen Abdom. wall. [...] byprimary OB provider unless otherwise specified by [facility]. Results forwarded to ordering provider so they can follow up with thepatient as necessary. Authorizing ProviderResult TypeResult StatusSheila BERMUDEZ ORDERABLES Final Result documented in this encounter Visit Diagnoses Diagnosis Acute palmoplantar pustular psoriasis Other psoriasis Chronic hypertension affecting Severe obesity due to excess calories affecting , antepartum ([facility]) Hypertension affecting in second trimester documented in this encounter Care Teams Team MemberRelationshipSpecialtyStart DateEnd [facility], [address] PCP - GeneralFamily Medicine11/03/24documented as of this encounter
--- OUTSIDE RECORDS SUMMARY | 2025-06-18 14:00 | XMS_ITS | Encounter Summary ---
Author Organization [facility] tem Address [facility]-[id number] [address] [place] [address] Care Team Providers Care Guard Range Name Role Phone Services, [facility] Primary Care Provider Reason for Referral * Medication Prior Authorization - ClosedSpecialtyDiagnoses / ProceduresReferred By ContactReferred To Contact Diagnoses Anxiety disorder affecting , antepartum Sheila Cruz MD [address] [address] Phone: tel: fax: Referral IDStatusReasonStart DateExpiration DateVisits RequestedVisits [id number] Encounter Details DateTypeDepartmentCare Team (Latest Contact Info)Moxvyaidogr45/28/2025 2:00 PM EDTTelemedicine Maternal- Medicine at [facility] [address] [place] [phone] Sheila Cruz MD [address] [facility] [address] [address] Chronic hypertension affecting (Primary Dx); 20 weeks gestation of ; Anxiety disorder affecting , antepartum; Acute palmoplantar pustular psoriasis; Severe obesity due to excess calories affecting , antepartum ([facility]) Social History Tobacco UseTypesPacks/DayYears UsedDateSmoking Tobacco: NeverSmokeless [...] money to get more.Never True05/17/2025Estimated Date of RygkbmiiNfbiufdbCwz53/11/2026ased on last menstrual period of 12/26/2024Sex and Gender InformationValueDate RecordedSex Assigned at BirthNot on fileLegal Sex Utdmgc8609/30/2022 2:11 PM ESTGender IdentityNot on fileSexual OrientationNot on filedocumented as of this encounter Progress Notes * Sheila Cruz MD - 06/18/2025 2:00 PM EDT REASON FOR CONSULTATION: CHTN HISTORY OF PRESENT ILLNESS: Chayo Ramires is a pleasant 35 y.o. at 24w6d due on Estimated Date of Delivery: 10/02/25. complicated by: CHTN History of palpitations, 24 hour monitor in January 2024 with sinus rhythm with rare episodes of ventricular ectopy in the form of single premature ventricular contractions, total of 3 PVCs in 48 hour. Patient denies any recurrent episodes of palpitations. She has remained asymptomatic throughout thispregnancy. Obesity affecting . 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 She denies headaches, vision changes, nausea, vomiting, right upper quadrant or epigastric pain, SOB or chest pain. She denies contractions, vaginal bleeding, leaking of fluid. She reports good fetalmovement. Patient reports that anxiety is increasing in the last few weeks. Aneuploidy screening: low risk cell free DNA Carrier screening: Baby Boy: Peewee Barraza I have reviewed the pertinent available patient [...] Vag-Spont EPI N ANNA Complications: Gestational hypertension ALLERGIES: No Known Allergies CURRENT MEDICATIONS: Current Outpatient Medications: aspirin 81 mg, Take 1 tablet (81 mg total) by mouth in the morning., Disp: , Rfl: cholecalciferol 10 mcg (400 unit) tablet, 2 tablets (800 Units total) in the morning. (Patient not taking: Reported on 11/03/2024), Disp: , Rfl: magnesium oxide (MAGOX) 400 mg tablet, Take 1 tablet (400 mg total) by mouth in the morning., Disp:, Rfl: NIFEdipine XL (PROCARDIA XL) 30 mg 24 hr tablet, Take 1 tablet (30 mg total) by mouth in the morning and at bedtime., Disp: 60 tablet, Rfl: 2 omeprazole (PriLOSEC) 20 mg capsule, Take 1 capsule (20 mg total) by mouth in the morning. (Patientnot taking: Reported on 04/29/2025), Disp: , Rfl: 115/iron/folic acid ( 19 ORAL), Take 1 tablet by mouth in the morning., Disp: , Rfl: sertraline (ZOLOFT) 25 mg tablet, Take 2 tablets (50 mg total) by mouth before bedtime. (Patient not taking: Reported on 05/17/2025), Disp: , Rfl: sertraline (ZOLOFT) 25 mg tablet, Take 2 tablets (50 mg total) by mouth before bedtime., Disp: , Rfl: REVIEW OF TESTS AND ULTRASOUND REPORTS: Referral records and [facility] chart were reviewed Pertinent Ultrasound findings are see formal ultrasound report. PHYSICAL EXAMINATION: LMP 12/26/2024 Well-appearing in no distress. Respirations not labored, speaking comfortably in full sentences Bilateral hands with patchy dryness and small vesicular eruptions on fingers Gravid abdomen OVERALL ASSESSMENT -Chayo Ramires is a pleasant 35 y.o. at 24w6d -chronic hypertension affecting -obesity affecting -Acute palmoplantar eczema -anxiety affecting -depression affecting COUNSELING/MEDICAL DECISION-MAKING Patient reports that blood pressures have overall improved, was increased to Procardia 60 mg in themorning and continued on Procardia 30 mg in the evening by primary OB. She continues to have elevated blood pressures in the evening in the 140s. She remains asymptomatic from a preeclampsia standpoint. SUMMARY/RECOMMENDATION: continue daily aspirin for attempted prevention of preeclampsia Continue clobetasol cream as needed for acute palmar plantar eczema Increase to Procardia 60 mg b.i.d.. I monitor BP daily at home, BP cuff prescribed, BP logs to be reviewed with primary OB If needed, initiate labetalol to maintain blood pressure goal of less than 140/90 if she develops severe range BPs in this , I recommend she be admitted to the hospital forevaluation of suspected superimposed preeclampsia. Increase Zoloft to 75 mg daily with plan to re-evaluate in 4-6 weeks. If no affect, patient desiresto go back down to Zoloft 50 mg daily to decrease the risk of transient withdrawal from Zoloft Incomplete level 2 anatomy ultrasound, attempt completion in 4 weeks through M serial growth ultrasounds every 4 weeks following completion of level 2 anatomy US, through primaryOB testing recommendation- twice weekly NSTs with CHETAN starting at 32 weeks, through primary OB reviewed monitoring for movements reviewed preeclampsia precautions Anticipate term vaginal delivery at local hospital. Delivery recommended at 38wk gestation. If patient deliveries via section, recommend anticoagulation during hospitalization with Lovenox 40 mg b.i.d., per ACOG guidelines, once hemodynamically stable and cleared from anesthesia DISPOSITION: At this point the patient is in complete care of her fire alarm technician. Patient does have ultrasound and office visit scheduled with us. Thank you for allowing me to participate in the care of Chayo Ramires. If there any questions please do not hesitate to contact us. Sheila Cruz MD Maternal- Medicine [facility] [address] [facility] 1st [place] [address] This document was created with Iwebalize technology. Though I make every effort to review the dictation as it is transcribed, on occasion the spoken word can be misinterpreted by the technology leading to inappropriate words, phrases, or sentences. This note is addressed to the requesting provider as a consultation for clinical guidance. Specificmedical abbreviations are occasionally used and those are generally approved by the [place]?Board of?Obstetrics and?Gynecology?as well as?Rama???s abbreviations. The above plan of care was based solely on the diagnoses for which a consultation was requested. ?More frequent testing may be indicated based on her other medical/obstetrical conditions. The management of other or medical conditions is beyond the scope of requested consultation and will c ontinue to be followed by the primary fire alarm technician or primary care provider. Note to patient: [...] and the clinical opinion of the practitioner. documented in this encounter Plan of Treatment DateTypeDepartmentCare Team (Latest Contact Info)Hhjkmssbmmi55/09/2025 2:00 PM ESTOffice Visit Maternal- Medicine at [facility] [address] [place] [address] Sheila Cruz MD [address] [facility] [address] [place] [address] documented as of this encounter Visit Diagnoses Diagnosis Chronic hypertension affecting - Primary 20 weeks gestation of Anxiety disorder affecting , 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 Severe obesity due to excess calories affecting , antepartum ([facility]) documented in this encounter Care Teams Team MemberRelationshipSpecialtyStart DateEnd [facility], [facility] [address] [place] [place] PCP - GeneralFamily Medicine11/03/24documented as of this encounter
--- OUTSIDE RECORDS SUMMARY | 2025-06-20 21:06 | XMS_ITS | Clinical Summary ---
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 Do not crush, chew, or split. 30 tablet 516Active labetalol (Normodyne) 200 MG tablet Indications:Second trimester ([facility]),Gestational hypertension, antepartum ([facility])TAKE 1 TABLET (200 MG) BY MOUTH IN THE MORNING AND AT BEDTIME 60 tablet 51Discontinued(Ineffective) Active Problems ProblemNoted DateDiagnosed DateVitamin D /02/2025H/O pre-eclampsia in prior , currently ([facility])05/23/2025Pregnancy induced hypertension, antepartum ([facility])04/25/2025Fallopian tube qnnootco35/09/2024 PCOS (polycystic ovarian syndrome)07/30/2024Estimated Date of Delivery YvmnliptCif99/11/2026ased on last menstrual period of 12/26/2024 Encounters DateTypeDepartmentCare BgjuUrzhjsmhhaj55/15/2025 8:50 AM EDTRoutine [facility] [address] [place] [address] Rosie Qiu NP Second trimester ([facility]); 23 weeks gestation of ([facility])06/05/2025amboo flowsheet [facility] [address] [place] [address] Rosie Qiu NP 06/04/2025Patient Outreach [facility] [address] [place] [address] Bethany Sheehan LPN 05/31/2025bstract [facility] [address] [place] [address] Bethany Sheehan LPN 05/30/2025 3:20 PM EDTRoutine [facility] [address] [place] [address] Rosie Qiu NP Chronic hypertension affecting ([facility]) (Primary Dx); Second trimester ([facility]); 22 weeks gestation of ([facility])05/30/2025amb flowsheet [facility] [address] [address] Rosie Qiu NP 05/29/20254954Uzlsjx82/07/2025Telephone [facility] [address] [address] Melanie Almaraz MA 05/23/2025 2:30 PM EDTRoutine [facility] [address] [place] [address] Rosie Qiu NP Second trimester ([facility]); 21 weeks gestation of ([facility]); induced hypertension, antepartum ([facility]); Vitamin D deficiency; H/O pre-eclampsia in prior , currently ([facility])05/23/2025 Clinisync Result Encounter [facility] External Department Unsolicited Israel Broderick, 05/23/2025amboo flowsheet [facility] [address] [address] Rosie Qiu, JEM 05/22/20255230Bjxkqd83/29/2025bstract [facility] [address] [address] Tsering Willingham [place] 05/17/2025External Result Encounter [facility] [address] [address] Israel Broderick DO 05/15/2025Refill [facility] [address] [address] Israel Broderick DO Second trimester ([facility]); Gestational hypertension, antepartum ([facility])05/15/2025Telephone [facility] [address] [address] Israel Broderick DO 04/26/2025bstract [facility] [address] [address] Tsering Willingham MA 04/26/2025Telephone [facility] [address] [address] Tsering Willingham LA 04/25/2025 11:10 AM EDTRoutine [facility] [address] [address] Israel Broderick DO Screening, , for anatomic survey ([facility]); Second trimester ([facility]); 17 weeks gestation of ([facility]); Screen for STD (sexually transmitted disease); Need for maternal serum alpha-protein (MSAFP) screening ([facility]); induced hypertension, antepartum ([facility]); Vitamin D pteqqsjtai19/04/2025amboo flowsheet [facility] [address] [place] [address] Israel Broderick, DO 04/23/20254756Munnkb35/31/2025linisync Result Encounter NOMS External Department Unsolicited Israel Broderick, DO 04/17/2025linisync Result Encounter NOMS External Department Unsolicited Israel Broderick, DO 04/11/2025 10:30 AM EDTRoutine [facility] [place] [address] Israel Broderick, DO 15 weeks gestation of ([facility]); Second trimester ([facility]); Acute nonintractable headache, unspecified headache type; BP check; Gestational hypertension, antepartum ([facility]); induced hypertension, antepartum ([facility])04/11/2025amboo flowsheet [facility] [place] [address] Israel Broderick, 03/28/2025 11:40 AM EDTRoutine [facility] [address] Israel Broderick, DO 13 weeks gestation of ([facility]); Second trimester ([facility]); Acute nonintractable headache, unspecified headache type03/28/2025amboo flowsheet [facility] [place] [address] Israel Broderick, 03/21/2025Telephone [facility] [address] [place] [place] [address] Bethany Simon PA 03/20/2025linisync Result Encounter NOMS External Department Unsolicited Israel Broderick DO from Last 3 Months Family History Medical HistoryRelationNameCommentsepilepsyBrotherDiabetesFatherHTNFather Pancreatic cancerMaternal GrandfatherhtnMotherRelationNameStatusCommentsBrother FatherMaternal GrandfatherMother Social History Tobacco UseTypesPacks/DayYears UsedDateSmoking Tobacco: Never AssessedPHQ-2 AnswerDate RecordedPatient Health Questionnaire-2 Jihza254 Estimated Date of FxgcmypcLqrdvzqeTpy57/11/2026ased on last menstrual period of 12/26/2024Sex and Gender InformationValueDate RecordedSex Assigned at BirthNot on fileLegal HzgIjdqae73/06/2024 9:48 AM EDTGender IdentityNot on fileSexual OrientationNot on file Last Filed Vital Signs Vital SignReadingTime TakenCommentsBlood Ubyvvday393/7606/05/2025 9:03 AM EDT Pulse--Temperature--Respiratory Rate--Oxygen Saturation--Inhaled Oxygen Concentration--Hpswmy966 kg (282 lb 12 oz)06/05/2025 9:02 AM FPRWfkokn655.7 cm (5' 8 )06/11/2024 2:39 PM EDTBody Mass Index42.9906/11/2024 2:39 PM EDT Plan of Treatment DateTypeDepartmentCare Team (Latest Contact Info)Jbujykqhryt60/03/2025 1:50 PM ESTRoutine [facility] [address] [place] [address] [place] [address] Israel Broderick DO [address] [place] [address] 12/16/2025 3:00 PM EDTOffice Visit [facility] [address] [place] [address] [place] [address] Israel Broderick DO [address] [place], [place] [phone] Health MaintenanceDue DateLast DoneCommentsMMR Vaccines (1 of 1 - Standard series)1993DTaP/Tdap/Td Vaccines (1 - Tdap)1999Varicella Vaccines (1 of 2 - 13+ 2-dose series)2005Hepatitis B Vaccines (1 of 3 - 19+ 3-dose series)2011HPV Vaccines (1 - 3-dose SCDM series)2019COVID-19 Vaccine (1 - season)2025Influenza Vaccine (#1)2025HPV/Cotest 8011/23/2022ervical Cancer Pfnykunvf25/21/2028Pap Smear12/11/2027 12/10/2024, 11/19/2022HIB VaccinesAged OutNo longer eligible based on patient's age to complete this topicHepatitis A VaccinesAged OutNo longer eligible based on patient's age to complete this topicIPV VaccinesAged OutNo longer eligible based on patient's age to complete this topicMeningococcal B VaccineAged OutNo longer eligible based on patient's age to complete this topicMeningococcal VaccineAged OutNo longer eligible based on patient's age to complete this topic Pneumococcal Vaccine: Pediatrics (0 to 5 Years) and At-Risk Patients (6 to 64 Years)Aged OutNo longer eligible based on patient's age to complete this topic Rotavirus VaccinesAged OutNo longer eligible based on patient's age to complete this topic Procedures Procedure NamePriorityDate/TimeAssociated DiagnosisCommentsPOCT URINALYSIS PUNSEMNAOuxzflk48/15/2025 9:03 AM EDT Second trimester ([facility]) POCT URINALYSIS JGHAIVJZAusbxuu56/09/2025 3:24 PM EDT 22 weeks gestation of ([facility]) AFP, SERUM, OPEN SPINA TVFXWOCqptrsj70/02/2025 2:30 PM EDT US OB 14+ WEEKS ANATOMY SCAN05/17/2025 4:39 PM EDT RECURRENT VAGINITIS (HTRX)Pzbgslt6004/25/2025 3:21 PM EDT POCT URINALYSIS CEHNPCALXheoyap17/04/2025 11:38 AM EDT Second trimester ([facility]) [facility] TOTAL PROTEIN 24 HOUR QBODJSumzpun47/31/2025 7:00 AM EDT ALL DDMRyciqnq59/27/2025 1:21 PM EDT CCF FXMCseqmxy40/27/2025 1:21 PM EDT ALL URIC ISMHPezyhdn49/27/2025 1:21 PM EDT TBH JTSDVODPTJXdrkovj66/27/2025 1:21 PM EDT ALL TGSEysysos45/27/2025 1:21 PM EDT CCF LPGFMdryseq82/27/2025 1:21 PM EDT SRMCOH PROTHROMBIN TIME INR W/O JPGUDneluwh97/27/2025 1:21 PM EDT ALL CBC WITH AUTO PCQGHpqgdkl63/27/2025 1:21 PM EDT POCT URINALYSIS IIJIWHJNVpgtagd81/21/2025 11:06 AM EDT 15 weeks gestation of ([facility]) Second trimester ([facility]) POCT URINALYSIS LXSGAMYISfdulcx34/07/2025 11:44 AM EDT 13 weeks gestation of ([facility]) Second trimester ([facility]) HBSAG CXMOPEXbahdjq41/30/2025 12:48 PM EDT RAPID PLASMA REAGIN, QJMIERnsxywb60/30/2025 12:48 PM EDT HIV AB/P24 AG WITH LCXSVULfryblz22/30/2025 12:48 PM EDT HCV ANTIBODY RFX TO QUANT HWTJazoacs46/30/2025 12:48 PM EDT ALL RUBELLA IGG IWRysdqsj93/30/2025 12:48 PM EDT ALL TYPE AND WHASKDWdptixb62/30/2025 12:48 PM EDT MLR HEMOGLOBIN J8QWhrokea92/30/2025 12:48 PM EDT ALL CBC WITH AUTO IWDUTukuuju39/30/2025 12:48 PM EDT TB DRUG SCREEN RAPID (URINE)Mkvdeto8503/20/2025 12:33 PM EDT PAP IWXFJZooztzj02/21/2025 12:00 AM EDTfrom Last 3 Months or Most Recently Relevant to Health Maintenance Results * (ABNORMAL) POCT urinalysis dipstick manually resulted (06/05/2025 9:03 AM EDT) Only the most recent of5 resultswithin the time period is included. ComponentValueRef RangeTest MethodAnalysis TimePerformed AtPathologist Signature Color, UAYellowClarity, UAClearGlucose, UANegativeNegative - 2000(110) ++++ mg/dLBilirubin, UANegativeNegative - 4(70) +++ mg/dLKetones, UANegativeNegative - 160(16) ++++ mg/dLSpec Grav, UA1.0251 - 1.03Blood, UANegativeNegative - 50 Surjit/mcLpH, UA6.05 - 9Protein, UANegativeNegative - 2000(20) ++++ mg/dL Urobilinogen, UA0.20.2 - 12 mg/dLLeukocytes, UANegativeNegative - 500+++ Kaleigh/mcL Nitrite, UANegativeNegative - PositiveSpecimen (Source)Anatomical Location / LateralityCollection Method / VolumeCollection TimeReceived HzndAgwyh81/15/2025 9:03 AM EDT Narrative Authorizing ProviderResult TypeResult StatusRosie Qiu NPPOINT OF CARE TEST ENTER/EDIT ORDERABLESFinal Result * AFP, SERUM, OPEN SPINA BIFIDA (05/23/2025 2:30 PM EDT)ComponentValueRef Range Test MethodAnalysis TimePerformed AtPathologist SignatureRESULTSReport.TBHTEST RESULTS:*Screen Negative*.TBHGEST. AGE ON COLLECTION DATE21.1. weeksTBHGESTAT. AGE BASED ONLMP.TBHComment: Recalculations are not recommended when gestational dating by LMP and ultrasound are within 10 days. MATERNAL AGE AT EDD33.5. yrTBHRACECaucasian.OLPZGWVJO588. lbsTBHINSULIN DEP DIABETESNo.TBHMULTIPLE GESTATIONNo.TBHAFP VALUE38.2. ng/mLTBHAFP MOM0.85.TBHOSBR RISK 1 [id number].TBHINTERPRETATIONComment.TBHComment: Interpretation: Screen Negative This result is screen [...] Genetic Customer Services to discuss available options. ??The [place] [employer] recommends amniocentesis be offered to women age 35 and older. COMMENT:Comment.TBHComment: Gema Ortez, Ph.D., [facility] Director References: Available Upon Request. Multiples Of Median Cutoffs ?For AFP Elevations Kumar ?? 2.5 ? Black ?2.8 IDD ? 2.0 ? Twins ?4.5 ?Abbreviation Definitions IDD - Insulin Dep Diabetes OSBR - Open Spina Bifida Risk For further inquiries contact [employer] at [phone]. This test was developed and its performance characteristics determined by [facility]. It has not been cleared or approved by the Food and Drug Administration. Performed at: ??[facility] - [facility] [address], [place], [place] ??[id number] Flatbed Stitcher: Jesus Saleh [facility], Phone: ??[phone] Specimen (Source)Anatomical Location / LateralityCollection Method / Volume Collection TimeReceived Time05/23/2025 2:30 PM EDT1 2:40 PM EDT Narrative [facility] - 05/25/2025 1:07 AM EDT N N LMP [id number] 2 9 N 1 282 N N N N N White/ Authorizing ProviderResult TypeResult StatusCorey Davie DOLAB BLOOD ORDERABLES Final ResultPerforming OrganizationAddressCity/State/ZIP CodePhone Number [facility] * US OB 14+ weeks anatomy scan (05/17/2025 4:39 PM EDT)Anatomical Region LateralityModalityBodyUltrasoundSpecimen (Source)Anatomical Location / LateralityCollection Method / VolumeCollection TimeReceived Time05/17/2025 4:39 PM EDT Narrative 05/17/2025 4:39 PM EDT THIS EXAM WAS PERFORMED AT [facility] NAME: ??PAULA HUGHES : 1990 SEX: F Accession Number: [id number] ORDERING PHYSICIAN: ISRAEL BRODERICK REFERRING PHYSICIAN: ISRAEL BRODERICK Coding Procedures ? 24423: Ultrasound, uterus, real time with image documentation, and maternal evaluation ? plus detailed anatomic examination, transabdominal approach;single or first gestation ? 12102: Ultrasound, uterus, real time with image documentation, transvaginal Indication Screening for Anatomic Survey , Screening for cervical length , Anxiety , Depression , Gestational hypertension without significant proteinuria , Obesity in , History of gestational hypertension. History OB History ? 2. Para 1 ? C7H3D2W9 Maternal Assessment Physical Exam ??Height 173 cm, 5 ft 8 in. Weight 128 kg, 282 lb. Initial weight 124 kg, 274 lb. BMI42.88 kg/m???. Initial ? BMI 41.66 kg/m???. Weight gain 4 kg, 8 lb Method Transabdominal and transvaginal ultrasound examination. View: Suboptimal view: limited by position and maternal body habitus . Images of optimal diagnostic quality could not be obtained. Kumar . Number of fetuses: 1 Dating LMP on: ?12/26/2024 GA by LMP ?20 w + 2 d PETROS by LMP: ?10/02/2025 Previous Ultrasound on: ?03/01/2025 Type of prior assessment: ?CRL U/S measurement at prior assessment date ? 23.0 mm GA by previous U/S ? 20 w + 0 d PETROS by previous Ultrasound: ?10/04/2025 Ultrasound examination on: ? 05/17/2025 GA by U/S based upon: ??AC, BPD, Femur, HC GA by U/S ?20 w + 5 d PETROS by U/S: ?09/29/2025 Assigned: ?based on the LMP, selected on 05/17/2025 Assigned GA (weeks days) ? 20 w + 2 d Assigned PETROS: ??10/02/2025 General Evaluation Cardiac activity Present. FHR 155 bpm. Presentation: cephalic Placenta: Placental site: anterior, away from cervical os Umbilical cord: Cord vessels: 3 vessel cord. Insertion site: normal insertion Amniotic fluid: Amount of AF: normal amount. MVP 6.6 cm Biometry Standard BPD ?50.3 mm 21w 2d 84% Hadlock OFD ?62.7 mm 21w 3d 86% Gavino HC ? 181.4 mm ?20w 4d 54% Hadlock AC ? 154.7 mm ?20w 5d 56% Hadlock Femur ??33.2 mm 20w 3d 46% Hadlock Humerus ?31.5 mm 20w 4d 60% Gavino HC / AC ?1.17 ? 56% Hadlock EFW ?362 g ?60% Hadlock EFW (lb) ? 0 lb EFW (oz) ? 13 oz EFW by: ?Hadlock ([id number]) Extended Tibia ??23.0 mm 18w 1d 2% Gavino Nasal bone ? 5.4 mm ?? 6% Sonek Head / Face / Neck Cephalic index 0.80 ? 66% Nicolaides Nasal bone: ?present Extremities / Bony Struc FL / BPD ? 0.66 ? 12% Hadlock FL / HC ?0.18 ? 21% Hadlock FL / AC ?0.21 ? 37% Hadlock Other Structures FHR ?155 bpm Anatomy The following structures appear normal: Head/Neck: Cranium. Parenchyma. Face: Nasal bone. Heart/Thorax: RVOT view. LVOT view. 3-vessel view. 6-npxisr-zsbhcym view. Situs. Bicaval view. Cardiac position. ? Cardiac axis. Cardiac size. Cardiac rhythm. ? Right lung. Left lung. Abdomen: Abdom. wall. Cord insertion. Stomach. Kidneys. Bladder. Small bowel. Large bowel. Genitals. Extremities/Skeleton: Left upper arm. Left forearm. Left hand. Right upper leg. Right lower leg. Right foot. Left upper leg. ? Left lower leg. The following structures could not be adequately visualized: Head / Neck ?Cavum septi pellucidi. ? Neck. Face ?? Profile. Maxilla. Mandible. Heart / Thorax 4-chamber view. Interventricular septum. ? Diaphragm. Spine: Cervical spine. Thoracic spine. Lumbar spine. Sacral spine. Extremities / ??Right upper arm. Right forearm. Left foot. Skeleton The following structures could not be examined: Head / Neck ?Lateral ventricles. Choroid plexus. Midline falx. Cerebellum. Cisterna magna. Vermis. ? Nuchal fold. Face ?? Lips. Nose. Orbits. Heart / Thorax Aortic arch view. Ductal arch view. Great vessels. Abdomen ?Right renal artery. Left renal artery. Extremities / ??Right hand. Skeleton Maternal Structures Uterus Visualized Cervix Visualized ? Approach - Transvaginal: Cervical length 3.06 cm Right Ovary ?Not visualized Left Ovary ? Visualized ? Size 4.7 cm x 3.8 cm x 2.4 cm. Vol 21.6 cm? Cyst(s) Simple cyst. Size 23 mm x 26 mm x 20 mm. Mean 23.0 mm. Vol 6.262 cm??? Cul de Sac ? Visualized. No free fluid visualized Impression Single live intrauterine consistent with 20w 2d with an PETROS of 10/02/2025. Normal growth. EFW measures at the 60%, AC measures at the 56%. Transvaginal cervical length measures 3.06 cm. Amniotic fluid MVP measures 6.6 cm. Maternal left ovarian cyst noted. Recommendations Please see [facility] documentation from today. The patient is scheduled in four to six week(s) to complete anatomic survey. Subsequent follow up or other follow up as clinically determined by primary OB provider unless otherwise specified by [facility]. Results forwarded to ordering provider so they can follow up with the patient as necessary. Procedure Note Radiology, Radiologist, MD - 05/17/2025 THIS EXAM WAS PERFORMED AT [facility] NAME: PAULA HUGHES : 1990 SEX: F Accession Number: [id number] ORDERING PHYSICIAN: ISRAEL BRODERICK REFERRING PHYSICIAN: ISRAEL BRODERICK Coding Procedures 57081: Ultrasound, uterus, real time with image documentation, and maternal evaluation plus detailed anatomic examination, transabdominalapproach;single or first gestation 88119: Ultrasound, uterus, real time with imagedocumentation, transvaginal Indication Screening for Anatomic Survey , Screening for cervical length , Anxiety , Depression , Gestational hypertension without significant proteinuria , Obesity in , History of gestational hypertension. History OB History 2. Para 1 U6O5N7T5 Maternal Assessment Physical Exam Height 173 cm, 5 ft 8 in. Weight 128 kg, 282 lb. Initialweight 124 kg, 274 lb. BMI 42.88 kg/m???. Initial BMI 41.66 kg/m???. Weight gain 4 kg, 8 lb Method Transabdominal and transvaginal ultrasound examination. View: Suboptimalview: limited by position and maternal body habitus . Images of optimal diagnostic quality could not be obtained. Kumar . Number of fetuses: 1 Dating LMP on: 12/26/2024 GA by LMP 20 [...] 2 d Assigned PETROS: 10/02/2025 General Evaluation Cardiac activity Present. FHR 155 bpm. Presentation: cephalic Placenta: Placental site: anterior, away from cervical os Umbilical cord: Cord vessels: 3 vessel cord. Insertion site: normalinsertion Amniotic fluid: Amount of AF: normal amount. MVP 6.6 cm Biometry Standard BPD 50.3 mm 21w 2d 84% [...] EFW (oz) 13 oz EFW by: Hadlock ([id number]) Extended Tibia 23.0 mm 18w 1d 2% Gavino Nasal bone 5.4 mm 6% Sonek Head / Face / Neck Cephalic index 0.80 66% Nicolaides Nasal bone: present Extremities / Bony Struc FL / BPD 0.66 12% Hadlock FL / HC 0.18 21% Hadlock FL / AC 0.21 37% Hadlock Other Structures FHR 155 bpm Anatomy The following structures appear normal: Head/Neck: Cranium. Parenchyma. Face: Nasal bone. Heart/Thorax: RVOT view. LVOT view. 3-vessel view. 6-wqjtmz-nigfcny view.Situs. Bicaval view. Cardiac position. Cardiac axis. [...] Extremities / Right hand. Skeleton Maternal Structures Uterus Visualized Cervix Visualized Approach - Transvaginal: Cervical length 3.06 cm Right Ovary Not visualized Left Ovary Visualized Size 4.7 cm x 3.8 cm x 2.4 cm. Vol 21.6 cm??? Cyst(s) Simple cyst. Size 23 mm x 26 mm x 20 mm. Mean 23.0 mm. Vol6.262 cm??? Cul de Sac Visualized. No free fluid visualized Impression Single live intrauterine consistent with 20w 2d with an PETROS of 10/02/2025. Normal growth. EFW measures at the 60%, AC measures at the 56%. Transvaginal cervical length measures 3.06 cm. Amniotic fluid MVP measures 6.6 cm. Maternal left ovarian cyst noted. Recommendations Please see [facility] documentation from today. The patient is scheduled in four to six week(s) to complete anatomicsurvey. Subsequent follow up or other follow up as clinically determined byprimary OB provider unless otherwise specified by MFM. Results forwarded to ordering provider so they can follow up with thepatient as necessary. Authorizing ProviderResult TypeResult StatusCorey Davie GOLDMANMG OB US PROCEDURES Final Result * (ABNORMAL) RECURRENT VAGINITIS (HTRX) (04/25/2025 3:21 PM EDT)ComponentValue Ref RangeTest MethodAnalysis TimePerformed AtPathologist SignatureATOPOBIUM DHBTTHB607.961 - 24.689 ppm04/26/2025 6:40 AM EDTHealthTrackRx at [facility] ATOPOBIUM VAGINAENot Glizbreg04.961 - 24.689 ppm04/26/2025 6:40 AM EDT [facility]PortBVAB 2,3 (BACTERIAL VAGINOSIS ASSOCIATED BACTERIA 2, 3); MOBILUNCUS SPP24.556(A)19.961 - 24.689 ppm04/26/2025 6:40 AM EDT [facility] 2,3 (BACTERIAL VAGINOSIS ASSOCIATED BACTERIA 2, 3); MOBILUNCUS SPPDetected(A)19.961 - 24.689 ppm04/26/2025 6:40 AM EDT [facility]PortCANDIDA ALBICANS, PARAPSILOSIS, HTCLVPRNCN722.000 - 30.347 ppm04/26/2025 6:40 AM EDTHealthTrackRx at LabPortCANDIDA ALBICANS, PARAPSILOSIS, TROPICALISNot Utpukkxb76.000 - 30.347 ppm04/26/2025 6:40 AM EDT [facility]CANDIDA EFNZCGVL334.000 - 31.618 ppm04/26/2025 6:40 AM EDTHealthTrackRx at LabPortCANDIDA GLABRATANot Oihozdaw34.000 - 31.618 ppm 04/26/2025 6:40 AM EDTHealth[facility]Rx at [facility] HealthcareCANDIDA XUAPEI827.000 - 30.873 ppm04/26/2025 6:40 AM EDTHealthTrackRx at [facility] HealthcareCANDIDA KRUSEINot Detected 23.000 - 30.873 ppm04/26/2025 6:40 AM EDTHealthTrackRx at [facility] HealthcareCHLAMYDIA DOELLPUUTDN028.000 - 31.586 ppm04/26/2025 6:40 AM EDTHealthTrackRx at [facility] CHLAMYDIA TRACHOMATISNot Wrpaymfi84.000 - 31.586 ppm04/26/2025 6:40 AM EDT [facility] HealthcareGARDNERELLA SRWFJLFMX064.961 - 24.689 ppm04/26/2025 6:40 AM EDTHealthTrackRx at Kindred HealthcareGARDNERELLA VAGINALISNot Iqqkvygq25.961 - 24.689 ppm04/26/2025 6:40 AM EDTHealthTrackRx at Kindred HealthcareMEGASPHAERA (TYPES 1, 2)019.961 - 24.689 ppm04/26/2025 6:40 AM EDTHealth[facility]Rx at [facility] MEGASPHAERA (TYPES 1, 2)Not Dffcqsgq10.961 - 24.689 ppm04/26/2025 6:40 AM EDT [facility] HealthcareNEISSERIA MQERERIYEJJ284.000 - 32.587 ppm04/26/2025 6:40 AM EDTHealthTrackRx at Kindred HealthcareNEISSERIA GONORRHOEAENot Crunliwu61.000 - 32.587 ppm04/26/2025 6:40 AM EDTHealthTrackRx at Kindred HealthcareTRICHOMONAS VAGINALIS0 23.000 - 31.995 ppm04/26/2025 6:40 AM EDTHealthTrackRx at Kindred HealthcareTRICHOMONAS VAGINALISNot Ghbdnvwc34.000 - 31.995 ppm04/26/2025 6:40 AM EDTHealthTrackRx at Kindred HealthcareMYCOPLASMA IRQXRUIYZN476.961 - 24.689 ppm04/26/2025 6:40 AM EDT [facility] HealthcareMYCOPLASMA GENITALIUMNot Eqvmllni38.961 - 24.689 ppm 04/26/2025 6:40 AM EDTHealthTrackRx at Kindred HealthcareSpecimen (Source)Anatomical Location / LateralityCollection Method / VolumeCollection TimeReceived Time Okiapy5904/25/2025 3:21 PM EDT04/26/2025 1:52 AM EDT Narrative Authorizing ProviderResult TypeResult StatusCorey Davie DOLAB BLOOD ORDERABLES Final ResultPerforming OrganizationAddressCity/State/ZIP CodePhone Number [facility] [address] [place] [address] * [facility] TOTAL PROTEIN 24 HOUR URINE (04/21/2025 7:00 AM EDT)ComponentValueRef RangeTest MethodAnalysis TimePerformed AtPathologist SignatureTOTAL PROTEIN URINE RANDOM<6.0<=11.9 mg/dLTBHTOTAL VOLUME 24 HOUR URINE2,500mL/24hrTBH Specimen (Source)Anatomical Location / LateralityCollection Method / Volume Collection TimeReceived Time04/21/2025 7:00 AM EDT04/21/2025 9:25 AM EDT Narrative CLINISYNC - 04/21/2025 1:50 PM EDT Authorizing ProviderResult TypeResult StatusCorey Davie DOCLINISYNCFinal Result Performing OrganizationAddressCity/State/ZIP CodePhone Number [facility] * [facility] CREATININE (04/17/2025 1:21 PM EDT)ComponentValueRef RangeTest Method Analysis TimePerformed AtPathologist SignatureCREATININE0.560.55 - 1.02 mg/dL TBHTBH EGFR-AF LIBYAN>60>=60 mL/min/1.73m 2TBHTBH EGFR-NON AF LIBYAN>60 >=60 mL/min/1.73m 2TBHSpecimen (Source)Anatomical Location / Laterality Collection Method / VolumeCollection TimeReceived Time04/17/2025 1:21 PM EDT 04/17/2025 1:22 PM EDT Narrative CLINISYNC - 04/17/2025 1:56 PM EDT Authorizing ProviderResult TypeResult StatusCorey Davie DOCLINISYNCFinal Result Performing OrganizationAddressCity/State/ZIP CodePhone Number EV[facility] ANTONY * SRMCOH PROTHROMBIN TIME INR W/O COUM (04/17/2025 1:21 PM EDT)ComponentValueRef RangeTest MethodAnalysis TimePerformed AtPathologist SignaturePROTHROMBIN TIME 10.19.0 - 11.6 secTBHTBH INR0.95TBHComment: DESIRED INR: 2.0-3.0 CONDITIONS NOT LISTED BELOW 2.5-3.5 FOR PROSTHETIC HEART VALVE REPLACEMENT 2.5-3.5 RECURRENT THROMBOSIS Specimen (Source)Anatomical Location / LateralityCollection Method / Volume Collection TimeReceived Time04/17/2025 1:21 PM EDT04/17/2025 1:22 PM EDT Narrative CLINISYNV - 04/17/2025 1:54 PM EDT Authorizing ProviderResult TypeResult StatusCorey Davie DOCLINISYNCFinal Result Performing OrganizationAddWern[facility] State Hospitalty/State/ZIP CodePhone Number [facility] * CCF AST (04/17/2025 1:21 PM EDT)ComponentValueRef RangeTest MethodAnalysis TimePerformed AtPathologist SignatureASPARTATE AMINO FOWRIFRSWFS3992 - 37 U/L TBHSpecimen (Source)Anatomical Location / LateralityCollection Method / Volume Collection TimeReceived Time04/17/2025 1:21 PM EDT04/17/2025 1:22 PM EDT Narrative CLINISYNC - 04/17/2025 1:56 PM EDT Authorizing ProviderResult TypeResult StatusCorey Davie DOCLINISYNCFinal Result Performing OrganizationAddWern[facility]ville State Hospitalty/State/ZIP CodePhone Number [facility] * CCF APTT (04/17/2025 1:21 PM EDT)ComponentValueRef RangeTest MethodAnalysis TimePerformed AtPathologist SignaturePARTIAL THROMBOPLASTIN TIME26.522.3 - 36.2 secTBHSpecimen (Source)Anatomical Location / LateralityCollection Method / VolumeCollection TimeReceived Time04/17/2025 1:21 PM EDT04/17/2025 1:22 PM EDT Narrative CLINISYNC - 04/17/2025 1:54 PM EDT Authorizing ProviderResult TypeResult StatusCorey Davie DOCLINISYNCFinal Result Performing OrganizationAddressCity/State/ZIP CodePhone Number [facility] * ALL URIC ACID (04/17/2025 1:21 PM EDT)ComponentValueRef RangeTest Method Analysis TimePerformed AtPathologist SignatureURIC ACID5.12.6 - 6.0 mg/dLTBH Specimen (Source)Anatomical Location / LateralityCollection Method / Volume Collection TimeReceived Time04/17/2025 1:21 PM EDT04/17/2025 1:22 PM EDT Narrative CLINISYNC - 04/17/2025 1:56 PM EDT Authorizing ProviderResult TypeResult StatusCorey Davie DOCLINISYNCFinal Result Performing OrganizationAddressCity/State/ZIP CodePhone Number [facility] * ALL LDH (04/17/2025 1:21 PM EDT)ComponentValueRef RangeTest MethodAnalysis TimePerformed AtPathologist SignatureLACTATE [id number] - 234 U/LTBH Specimen (Source)Anatomical Location / LateralityCollection Method / Volume Collection TimeReceived Time04/17/2025 1:21 PM EDT04/17/2025 1:22 PM EDT Narrative CLINISYNC - 04/17/2025 1:56 PM EDT Authorizing ProviderResult TypeResult StatusCorey Davie DOCLINISYNCFinal Result Performing OrganizationAddWernersville State Hospitalty/State/ZIP CodePhone Number [facility] * (ABNORMAL) ALL CBC WITH AUTO DIFF (04/17/2025 1:21 PM EDT) Only the most recent of2 resultswithin the time period is included. ComponentValueRef RangeTest MethodAnalysis TimePerformed AtPathologist Signature TBH WBC13.0(H)4.0 - 11.0 10 3/uLTBHTBH RBC3.80(L)4.20 - 5.40 10 6/uLTBHTBH HGB 11.9(L)12.0 - 16.0 g/dLTBHTBH HCT35.4(L)36.0 - 48.0 %TBHTBH MCV93.281.0 - 99.0 fLTBHTBH MCH31.326.7 - 34.0 pgTBHTBH MCHC33.629.9 - 35.2 g/dLTBHTBH RDW12.311.0 - 15.0 %TBHTBH STG559886 - 450 10 3/uLTBHTBH MPV10.29.5 - 13.5 fLTBHNEUTROPHILS PERCENT AUTO76.7(H)43.0 - 75.0 %TBHLYMPHOCYTES PERCENT AUTO15.4(L)20.5 - 60.0 % TBHMONOCYTES PERCENT AUTO4.11.7 - 12.0 %TBHTBH EO %2.90.9 - 7.0 %TBHBASOPHILS PERCENT AUTO0.20.2 - 2.0 %TBHIMMATURE GRANULOCYTES PCT AUTO0.7(H)0.0 - 0.5 %TBH NEUTROPHILS ABSOLUTE AUTO9.9(H)1.4 - 6.5 10 3/uLTBHLYMPHOCYTES ABSOLUTE AUTO2.0 1.2 - 3.8 10 3/uLTBHMONOCYTES ABSOLUTE AUTO0.50.3 - 0.8 10 3/uLTBHTBH EO #0.40.0 - 0.7 10 3/uLTBHBASOPHILS ABSOLUTE AUTO0.00.0 - 0.1 10 3/uLTBHIMMATURE GRANULOCYTES ABS AUTO0.09(H)0.00 - 0.03 10 3/uLTBHSpecimen (Source)Anatomical Location / LateralityCollection Method / VolumeCollection TimeReceived Time 04/17/2025 1:21 PM EDT04/17/2025 1:22 PM EDT Narrative CLINISYNC - 04/17/2025 1:31 PM EDT Authorizing ProviderResult TypeResult StatusCorey Davie STRICKLANDLINISYNCFinal Result Performing OrganizationAddressCity/State/ZIP CodePhone Number [facility] * ALL BUN (04/17/2025 1:21 PM EDT)ComponentValueRef RangeTest MethodAnalysis TimePerformed AtPathologist SignatureBLOOD UREA NITROGEN7.07.0 - 18.0 mg/dLTBH Specimen (Source)Anatomical Location / LateralityCollection Method / Volume Collection TimeReceived Time04/17/2025 1:21 PM EDT04/17/2025 1:22 PM EDT Narrative CLINISYNC - 04/17/2025 1:56 PM EDT Authorizing ProviderResult TypeResult StatusCorey Davie DOCLINISYNCFinal Result Performing OrganizationAddressCity/State/ZIP CodePhone Number [facility] * HBSAG SCREEN (03/20/2025 12:48 PM EDT)ComponentValueRef RangeTest Method Analysis TimePerformed AtPathologist SignatureHBSAG SCREENNegativeNegativeTBH Comment: Performed at: ??[address] ??[id number] Flatbed Stitcher: Yobany Blount PhD, Phone: ??[phone] Specimen (Source)Anatomical Location / LateralityCollection Method / Volume Collection TimeReceived Time03/20/2025 12:48 PM EDT03/20/2025 12:51 PM EDT Narrative CLINISYNC - 03/21/2025 11:11 AM EDT Authorizing ProviderResult TypeResult StatusCorey Davie DOLAB BLOOD ORDERABLES Final ResultPerforming OrganizationAddressCity/State/ZIP CodePhone Number [facility] * RAPID PLASMA REAGIN, QUANT (03/20/2025 12:48 PM EDT)ComponentValueRef Range Test MethodAnalysis TimePerformed AtPathologist SignatureRAPID PLASMA REAGIN, QUANTNon ReactiveNonRea<1:1 titerTBHComment: Please Note: This test does not meet current guidelines for screening and diagnosis of syphilis. This test is intended for following treatment response in patients being treated for syphilis infection. To screen for syphilis infection, a reflex cascade that includes both RPR and a treponema-specific assay should be utilized, such as Treponema pallidum (Syphilis) Screening [place] (143325) or Rapid Plasma Reagin (RPR) Test With Reflex to Quantitative RPR and Confirmatory Treponema pallidum Antibodies (052660). Performed at: ??[address] ??[id number] Flatbed Stitcher: Yobany Blount PhD, Phone: ??[phone] Specimen (Source)Anatomical Location / LateralityCollection Method / Volume Collection TimeReceived Time03/20/2025 12:48 PM EDT03/20/2025 12:51 PM EDT Narrative CLINISYNC - 03/21/2025 11:11 AM EDT Authorizing ProviderResult TypeResult StatusCorey Davie DOLAB BLOOD ORDERABLES Final ResultPerforming OrganizationAddressty/State/ZIP CodePhone Number [facility] * HIV AB/P24 AG WITH REFLEX (03/20/2025 12:48 PM EDT)ComponentValueRef RangeTest MethodAnalysis TimePerformed AtPathologist SignatureHIV AB/P24 AG SCREENNon ReactiveNon ReactiveTBHComment: HIV-1/HIV-2 antibodies and HIV-1 p24 antigen were NOT detected. There is no laboratory evidence of HIV infection. HIV Negative Performed at: ?? - [facility] [address] ??[id number] Flatbed Stitcher: Yobany Blount PhD, Phone: ??[phone] Specimen (Source)Anatomical Location / LateralityCollection Method / Volume Collection TimeReceived Time03/20/2025 12:48 PM EDT03/20/2025 12:51 PM EDT Narrative [facility] - 03/21/2025 5:07 AM EDT Authorizing ProviderResult TypeResult StatusCorey Davie DOLAB BLOOD ORDERABLES Final ResultPerforming OrganizationAddressty/State/ZIP CodePhone Number [facility] * HCV ANTIBODY RFX TO QUANT PCR (03/20/2025 12:48 PM EDT)ComponentValueRef Range Test MethodAnalysis TimePerformed AtPathologist SignatureHCV ABNon ReactiveNon ReactiveTBHINTERPRETATION:Comment.TBHComment: Not infected with HCV unless early or acute infection is suspected (which may be delayed in an immunocompromised individual), or other evidence exists to indicate HCV infection. Specimen (Source)Anatomical Location / LateralityCollection Method / Volume Collection TimeReceived Time03/20/2025 12:48 PM EDT03/20/2025 12:51 PM EDT Narrative [facility] - 03/21/2025 5:07 AM EDT Authorizing ProviderResult TypeResult StatusCorey Davie DOLAB BLOOD ORDERABLES Final ResultPerforming OrganizationAddressCity/State/ZIP CodePhone Number [facility] * MLR HEMOGLOBIN A1C (03/20/2025 12:48 PM EDT)ComponentValueRef RangeTest Method Analysis TimePerformed AtPathologist SignatureGLYCOHEMOGLOBIN A1C5.14.5 - 6.2 %TBHComment: ADA RECOMMENDED LIMIT 4.0 - 6.0 ADA THERAPEUTIC TARGET < 7.0 ACTION SUGGESTED > 7.0 ESTIMATED AVERAGE EUGRPEL617co/dLTBHSpecimen (Source)Anatomical Location / LateralityCollection Method / VolumeCollection TimeReceived Time03/20/2025 12:48 PM EDT03/20/2025 12:51 PM EDT Narrative CLINISYNC - 03/20/2025 2:20 PM EDT Authorizing ProviderResult TypeResult StatusCorey Davie DOCLINISYNCFinal Result Performing OrganizationAddWernersville State Hospitalty/State/ZIP CodePhone Number [facility] * ALL TYPE AND SCREEN (03/20/2025 12:48 PM EDT)ComponentValueRef RangeTest MethodAnalysis TimePerformed AtPathologist SignatureBLOOD TYPEB PositiveTBH ANTIBODY SCREENNEGATIVETBHSpecimen (Source)Anatomical Location / Laterality Collection Method / VolumeCollection TimeReceived Time03/20/2025 12:48 PM EDT 03/20/2025 12:51 PM EDT Narrative [facility] - 03/20/2025 2:38 PM EDT [facility] , ?? Authorizing ProviderResult TypeResult StatusCorey [facility] Costa MesaLINISYNCFinal Result Performing OrganizationAddressty/State/ZIP CodePhone Number [facility] * ALL RUBELLA IGG AB (03/20/2025 12:48 PM EDT)ComponentValueRef RangeTest Method Analysis TimePerformed AtPathologist SignatureRUBELLA ANTIBODIES, IGG1.99 Immune >0.99 indexTBHComment: Non-immune <0.90 ?Equivocal ??0.90 - 0.99 Immune >0.99 Performed at: ?? - [facility] [address] [facility], [place], [place] ??[id number] Flatbed Stitcher: Yobany Blount PhD, Phone: ??[phone] Specimen (Source)Anatomical Location / LateralityCollection Method / Volume Collection TimeReceived Time03/20/2025 12:48 PM EDT03/20/2025 12:51 PM EDT Narrative CLINISYNV - 03/21/2025 5:07 AM EDT Authorizing ProviderResult TypeResult StatusCorey Davie DOCLINISYNCFinal Result Performing OrganizationAddressCity/State/ZIP CodePhone Number [facility] * [facility] DRUG SCREEN RAPID (URINE) (03/20/2025 12:33 PM EDT)ComponentValueRef Range Test MethodAnalysis TimePerformed AtPathologist SignatureCANNABINOID SCREEN URINENEGATIVENEGATIVETBHPHENCYCLIDINE SCREEN URINENEGATIVENEGATIVETBHCOCAINE SCREEN URINENEGATIVENEGATIVETBHMETHAMPHETAMINES SCREEN URINENEGATIVENEGATIVE TBHOPIATE SCREEN URINENEGATIVENEGATIVETBHAMPHETAMINE SCREEN URINENEGATIVE NEGATIVETBHBENZODIAZEPINES SCREEN URINENEGATIVENEGATIVETBHTRICYCLIC ANTIDEPRESSANT URINENEGATIVENEGATIVETBHMETHADONE SCREEN URINENEGATIVENEGATIVE TBHBARBITURATES SCREEN URINENEGATIVENEGATIVETBHOXYCODONE SCREEN URINENEGATIVE NEGATIVETBHBUPRENORPHINE SCREEN URINENEGATIVENEGATIVETBHComment: DRUG CLASS TEST SYSTEM CUT-OFF CONCENTRATIONS ARE FOLLOWS: AMP (Amphetamine): 500 ng/mL BAR (Barbiturates): 200 ng/mL BZO (Benzodiazepines): 150 ng/mL BUP (Buprenorphine): 10 ng/mL CLAY (Cocaine): 150 ng/mL mAMP (Methamphetamine): 500 ng/mL MTD (Methadone): 200 ng/mL OPI (Opiates): 100 ng/mL OXY (Oxycodone): 100 ng/mL PCP (Phencyclidine): 25 ng/mL THC (Cannabinoids): 50 ng/mL TCA (Trycyclic Antidepressants): 300 ng/mL Specimen (Source)Anatomical Location / LateralityCollection Method / Volume Collection TimeReceived Time03/20/2025 12:33 PM EDT03/20/2025 12:58 PM EDT Narrative CLINISYNV - 03/20/2025 2:02 PM EDT Authorizing ProviderResult TypeResult StatusCorey Davie DOCLINISYNCFinal Result Performing OrganizationAddressCity/State/ZIP CodePhone Number [facility] * Pap Smear (12/10/2024 12:00 AM EDT)Specimen (Source)Anatomical Location / LateralityCollection Method / VolumeCollection TimeReceived TimeSwabCervical swab / Unknown Narrative Authorizing ProviderResult TypeResult StatusFazio Nurse [facility] ObLAB CYTOLOGY ORDERABLESFinal ResultPerforming OrganizationAddressCity/State/ZIP CodePhone Number EXTERNAL LAB from Last 3 Months or Most Recently Relevant to Health Maintenance Insurance * Guarantor: Antoinette Ramires TypeRelation to PatientDate of BirthPhone Billing AddressPersonal/TlpeboNivp1990 [address] [address] Care Teams Team MemberRelationshipSpecialtyStart DateEnd Date Judy Caal PCP - [facility]02/20/24
--- OUTSIDE RECORDS SUMMARY | 2025-06-20 21:06 | XMS_ITS | Clinical Summary ---
Author Organization [facility] Address [address] [place] [address] Phone Care Team Providers Care Information Systems Security Manager Name Role Phone June Trinidad LPN Unavailable Unavailable Allergies No known active allergies Medications MedicationSigDispense QuantityRefillsLast FilledStart DateEnd DateStatus metFORMIN (Glucophage) 500 mg tablet 1 tablet (500 mg).05/22/2024ctive Social History Tobacco UseTypesPacks/DayYears UsedDateSmoking Tobacco: NeverSmokeless Tobacco: Never Tobacco Cessation:Counseling Given: No Alcohol UseStandard Drinks/WeekCommentsNever0 (1 standard drink = 0.6 oz pure alcohol)PHQ-2AnswerDate RecordedPatient Health Questionnaire-2 Kcxiq918 CommentsUnknownSex and Gender InformationValueDate RecordedSex Assigned at BirthNot on fileLegal HnyGhbqjn72/06/2025 12:03 PM ESTGender IdentityNot on fileSexual OrientationNot on file Last Filed Vital Signs Vital SignReadingTime TakenCommentsBlood Scdvudma778/7805 10:52 AM EDT Irxaw999401/03/2025 10:52 AM BYZZkxntbjtoby97.6 ??C (97.8 ??F)01/03/2025 10:52 AM EDTRespiratory Rate--Oxygen Saturation--Inhaled Oxygen Concentration--Qsurru309 kg (268 lb 9.6 oz)01/03/2025 10:52 AM YDLNttxld084.7 cm (5' 8 )01/03/2025 10:52 AM EDTBody Mass Index40.845 10:52 AM EDT Plan of Treatment Health MaintenanceDue DateLast DoneCommentsHIV Mizvundjf1992Lipid Panel 1992MMR Vaccines (1 of 1 - Standard series)1993Hepatitis C Screening 2010Hepatitis B Vaccines (1 of 3 - 19+ 3-dose series)2011HPV/Cotest 2013DTaP/Tdap/Td Vaccines (1 - Tdap)2014HPV Vaccines (1 - 3-dose standard series)2019Influenza Vaccine (#1)2025OVID-19 Vaccine ( - season)2025early Adult Oqpdroxj41/22/453233/ervical Cancer Hvmgtyrxs33/21/2028Pap Smear12/10/610156/Zoster Vaccines (1 of 2) 2042HIB VaccinesAged OutNo longer eligible based on patient's age to complete this topicHepatitis A VaccinesAged OutNo longer eligible based on patient's age to complete this topicIPV VaccinesAged OutNo longer eligible based on patient's age to complete this topicMeningococcal VaccineAged OutNo longer eligible based on patient's age to complete this topicPneumococcal Vaccine: Pediatrics and At-Risk Adult PatientsAged OutNo longer eligible based on patient's age to complete this topicRotavirus VaccinesAged OutNo longer eligible based on patient's age to complete this topic Insurance * Guarantor: Antoinette Ramires TypeRelation to PatientDate of BirthPhone Billing AddressPersonal/DmubjmXcgn1990 [address] [address] * Guarantor: Antoinette Ramires TypeRelation to PatientDate of BirthPhone Billing AddressPersonal/VfwwxwMjmj1990 [address] [address] Care Teams Team MemberRelationshipSpecialtyStart DateEnd Date June Trindiad LPN Licensed Practical NurseReproductive Endocrinology and Infertility01/01/25
--- OUTSIDE RECORDS SUMMARY | 2025-06-20 21:06 | XMS_ITS | CCD ---
Author Organization [facility] [place] [facility] Care Team Providers Care Infant Room Teacher Name Role Phone Pinky Singh Unavailable Judy Caal Unavailable Unavailable Unavailable Primary Care Provider Unavailabl e Services, [facility] Primary Care Provider Caesar Broderick DO Attending Provider [phone] Davie, Caesar Attending Unavailable Davie, Caesar Admitting Unavailable White PATCH DRILLER, June A Unavailable Unavailable ROBBIE LOPEZ Attending Unavailable Services, [facility] Primary Care Provider CAESAR BRODERICK Attending Unavailable DAVIE, CAESAR Attending Unavailable DAVIE, CAESAR Attending Unavailable DAVIE, CAESAR Attending Unavailable DAVIE, CAESAR Attending Unavailable DAVIE, CAESAR Attending Unavailable DAVIE, CAESAR Attending Unavailable DAVIE, CAESAR Attending Unavailable UYEN, RODY Attending Unavailable UYEN, RODY Attending Unavailable UYEN, RODY Attending Unavailable SERVICES, [facility] Primary Care Unava ilable MILLIE VILLAGRAN Attending Unavailable SERVICES, [facility] Primary Care Unava ilable FRANCIE ABRAMS Attending Unavailable DAVIE, CAESAR R Referring Unavailable SERVICES, [facility] Primary Care Unava ilable DAVIE, CAESAR R Referring Unavailable SERVICES, [facility] Primary Care Unava ilable YORDY CRUZ Attending Unavailable DAVIE, CAESAR R Referring Unavailable SERVICES, [facility] Primary Care Unava ilable DAVIE, CAESAR R Referring Unavailable SERVICES, [facility] Primary Care Unava ilable ANTHONY YORDY Attending Unavailable DAVIE, CAESAR R Referring Unavailable SERVICES, [facility] Primary Care Unava ilable Services, [facility] Primary Care Provider Medications Current Medications MedicationDrug Class(es)DatesSig (Normalized)Sig (Original)amoxicillin 875 mg / clavulanate 125 mg oral tablet (2 sources)Penicillin-class AntibacterialStart: 15-09-5087rgeu 1 tablet by mouth twice dailyAmoxicillin-Pot Clavulanate 875-125 mg tablet Active 1 TAB PO Twice daily November 24, 2023 12:00amaspirin 81 mg delayed release oral tablet (4 sources)Platelet Aggregation Inhibitor, Nonsteroidal Anti-inflammatory Drug take 1 tablet by mouth in the morningaspirin 81 mg Take 1 tablet (81 mg total) by mouth in the morning. Activecholecalciferol 0.01 mg oral tablet (20 sources)Vitamin DStart: 92-66-9756mikylafwdnovofv 10 mcg (400 unit) tablet 2 tablets (800 Units total) in the morning. 01/26/2024 ActiveStart: 01-26-2024 End: 82-40-7821Wnebflftrxzctxk 10 MCG (400 UNIT) chewable tablet 1 (one) time each day at the same time Discontinued (Therapy completed) End: 78-28-3279gwob 2 tablets by mouth once dailyD-400 10 MCG (400 UNIT) tablet TAKE 2 TABLETS BY MOUTH ONCE DAILY FOR 30 DAYS 03/28/2025 Discontinuedclobetasol propionate 0.0005 mg/mg topical ointment (3 sources)CorticosteroidStart: 05-17-2025 End: 40-30-3181hwoemororV (TEMOVATE) 0.05 % ointment Indications: Acute palmoplantar pustular psoriasis , Chronic hypertension affecting , 20 weeks gestation of Apply a thin layer to the affected areas twice daily. 30 g 05/17/2025 05/31/2025 ActiveclomiPHENE citrate 50 mg oral tablet (3 sources)Estrogen Agonist/AntagonistStart: 11-12-2024 End: 92-57-4428cdbg 2 tablets by mouth once dailyclomiPHENE (Clomid) 50 MG tablet Indications: Encounter for fertility planning , PCOS (polycystic ovarian syndrome) , Fallopian tube disorder Take 2 tablets (100 mg) by mouth Daily for 5 days 10 tablet 11/12/2024 11/17/2024 Activefluticasone propionate 0.05 mg/actuat metered dose nasal spray (4 sources)CorticosteroidStart: 11-24-2023 End: 12-91-2267hhajvkeowet (Flonase) 50 MCG/ACT nasal spray Daily 11/24/2023 04/10/2024 Discontinued (Other)Start: 25-12-3942xpqr 1 spray(s) nasal route once dailyFluticasone Propionate 50 mcg/actuation spray,suspension Active 2 SPRAY INTRANASAL Daily November 24, 2023 12:00am administer into each nostril magnesium oxide 400 mg oral tablet (15 sources)Start: 03-28-2025 End: 12-28-7243bqzn 1 tablet by mouth once dailymagnesium oxide (Mag-Ox) 400 MG tablet Indications: Second trimester ([facility]) , Acute nonintractable headache, unspecified headache type Take 1 tablet (400 mg) by mouth Daily 30 tablet 6 03/28/2025 04/27/2025 ActivemetFORMIN hydrochloride 500 mg oral tablet (20 sources)BiguanideStart: 76-62-8800rntCNWEAI (Glucophage) 500 mg tablet 1 tablet (500 mg). 05/22/2024 ActiveStart: 04-10-2024 End: 50-74-7207xdrf 1 tablet by mouth every twenty-four hours at mealtime metFORMIN XR (Glucophage-XR) 500 MG 24 hr tablet Indications: PCOS (polycystic ovarian syndrome) , Abnormal uterine bleeding (AUB) Take 1 tablet (500 mg) by mouth in the evening. Take with meals Do not crush, chew, or split. 30 tablet 11 04/10/2024 03/01/2025 Discontinued (Therapy completed) End: 91-04-8235rcop 1 tablet by mouth once daily at breakfastmetFORMIN XR (GLUCOPHAGE XR) 500 mg 24 hr tablet Take 1 tablet (500 mg total) by mouth daily with breakfast. 05/17/2025 DiscontinuedNIFEdipine 30 mg osmotic 24 hr extended release oral tablet (19 sources)Dihydropyridine Calcium Channel BlockerStart: 69-53-7541zgcm 2 tablets by mouth every twenty-four hours at bedtimeNIFEdipine XL (PROCARDIA XL) 30 mg 24 hr tablet Indications: Chronic hypertension affecting , 20 weeks gestation of Take 2 tablets (60 mg total) by mouth in the morning and at bedtime. 60 tablet 2 06/18/2025 ActiveStart: 05-30-2025 End: 37-67-5125ibkr 1 tablet by mouth once daily in the morningNIFEdipine XL (Procardia XL) 60 MG 24 hr tablet Indications: Chronic hypertension affecting ([facility]) Take 1 tablet (60 mg) by mouth Daily Take 1 tablet in the am. Do not crush, chew, or split. 30 tablet 3 05/30/2025 05/30/2026 ActiveStart: 05-17-2025 End: 28-82-6938vmjs 1 tablet by mouth every twenty-four hours at bedtime NIFEdipine XL (PROCARDIA XL) 30 mg 24 hr tablet Indications: Chronic hypertension affecting , 20 weeks gestation of Take 1 tablet (30 mg total) by mouth in the morning and at bedtime. 60 tablet 2 05/17/2025 06/18/2025 DiscontinuedStart: 62-10-1332qrcw 1 tablet by mouth once daily Procardia XL 30 MG 24 hr tablet Take 30 mg by mouth Daily 05/17/2025 Active predniSONE 20 mg oral tablet (2 sources)Start: 97-19-5299nmpm 1 tablet by mouth twice dailyPrednisone 20 mg tablet Active 20 MG PO Twice daily 05 26November 24, 2023 12:00amprenatal 115/iron/folic acid ( 19 ORAL) (4 sources)take 1 tablet by mouth in the morningprenatal 115/iron/folic acid ( 19 ORAL) Take 1 tablet by mouth in the morning. Activesertraline 25 mg oral tablet (20 sources)Serotonin Reuptake InhibitorStart: 93-26-0077xehk 1 tablet by mouth in the morningsertraline (ZOLOFT) 25 mg tablet Indications: Anxiety disorder affecting , antepartum Take1 tablet (25 mg total) by mouth in the morning. 30 tablet 1 06/18/2025 ActiveStart: 65-80-1997fusa 1 tablet by mouth in the morningsertraline (ZOLOFT) 50 mg tablet Indications: Anxiety disorder affecting , antepartum Take1 tablet (50 mg total) by mouth in the morning. 30 tablet 1 06/18/2025 ActiveStart: 11-06-2024 End: 06-25-9748uxms 2 tablets by mouth once dailysertraline (Zoloft) 25 MG tablet Take 50 mg by mouth 1 (one) time each day at the same time 11/06/2024 ActiveStart: 11-06-2024 End: 70-81-0909mnpb 3 tablets by mouth at bedtimesertraline (ZOLOFT) 25 mg tablet Take 3 tablets (75 mg total) by mouth before bedtime. 11/06/2024 DiscontinuedStart: 11-06-2024 End: 14-43-2955ocbvkpcfus (Zoloft) 25 MG tablet 1 (one) time each day at the same time 11/06/2024 ActiveStart: 08-04-2023 End: 97-87-0587yqrs 1 tablet by mouth once dailysertraline (Zoloft) 50 MG tablet Take 50 mg by mouth Daily 08/04/2023 04/10/2024 Discontinued (Other)sertraline (ZOLOFT) 25 mg tablet Take by mouth daily. Active Completed/Discontinued Medications MedicationDrug Class(es)DatesSig (Normalized)Sig (Original)labetalol hydrochloride 200 mg oral tablet (12 sources)beta-Adrenergic BlockerStart: 05-16-2025 End: 88-83-1340chej 1 tablet by mouth once at bedtimelabetalol (Normodyne) 200 MG tablet Indications: Second trimester ([facility]HS-HCC) , Gestational hypertension, antepartum ([facility]HS-HCC) TAKE 1 TABLET (200 MG) BY MOUTH IN THE MORNING AND AT BEDTIME 60tablet 2 05/16/2025 05/23/2025 Discontinued (Ineffective)Start: 04-11-2025 End: 48-05-7648gcjl 1 tablet by mouth once in the morninglabetalol (Normodyne) 200 MG tablet Indications: Second trimester (HHS-HCC) , Gestational hypertension, antepartum ([facility]HS-HCC) Take 1 tablet (200 mg) by mouth in the morning and 1 tablet (200mg) before bedtime. 60 tablet 04/11/2025 05/11/2025 Active End: 10-88-9070aewo 1 tablet by mouth in the morning, then take 1 tablet by mouth at bedtimelabetaloL (NORMODYNE) 200 mg tablet Take 1 tablet (200 mg total) by mouth in the morning and 1 tablet (200 mg total) before bedtime. 05/17/2025 Discontinuedomeprazole 20 mg delayed release oral capsule (20 sources)Proton Pump InhibitorStart: 01-24-2024 End: 12-35-3176autf 1 capsule by mouth in the morningomeprazole (PriLOSEC) [address] capsule Take 20 mg by mouth in the morning. 01/24/2024 03/28/2025 Dis continued Problems Active Problems Problem ClassificationProblemDateDocumented DateEpisodic/ChronicAbdominal pain (3 sources)Pain in female pelvis; Translations: [Pelvic and perineal pain] 81-54-9922EwwnkeohBdnmqkw disorders (1 source)Anxiety disorder, unspecified; Translations: [Anxiety disorder, unspecified]Onset: 42-72-1794GmsbcixBwmxjhcmsskew and procreative management (8 sources)Patient encounter status; Translations: [Encounter for other procreative management]64-38-1840AuomrlgoNbkrjlye; including migraine (4 sources)Acute headache; Translations: [Acute nonintractable headache, unspecified headache type]61-05-6094UipjhfbyRngxtcijdpqg complicating ; childbirth and the puerperium (16 sources)Hypertension complicating ; Translations: [Unspecified maternal hypertension, second trimester]Onset: hronic Hypertension complicating ; childbirth and the puerperium (20 sources)Hypertension AND/OR vomiting complicating childbirth AND/OR puerperium; Translations: [Gestational [-induced] hypertension without significant proteinuria, unspecified trimester]Onset: 04-25-2025 08-60-0274AlkuamcqJjcubavwdluea and screening for infectious disease (6 sources)Contact with and (suspected) exposure to other viral communicable diseases; Translations: [Contact with or exposure to other viral diseases] EpisodicMenstrual disorders (2 sources)Amenorrhea; Translations: [Amenorrhea, unspecified]86-21-1067Xjoevdk Nutritional deficiencies (14 sources)Vitamin D deficiency; Translations: [Vitamin D deficiency, unspecified]Onset: 303788-99-5164HcnluykFtfh wounds of extremities (2 sources)Laceration without foreign body of right thumb without damage to nail, initial encounter; Translations: [Laceration of finger]Onset: 04-29-2025 EpisodicOther aftercare (2 sources)Postoperative visit; Translations: [Encounter for other specified surgical aftercare]17-53-6759FkowghflBcwak and unspecified benign neoplasm (1 source)Pigmented skin lesion ; Translations: [Melanocytic nevi, unspecified] 31-90-9101OlxzyfewDwmeg circulatory disease (1 source)H/O: hypertension; Translations: [Personal history of other diseases of the circulatory system]91-08-6038JphsqlefErsfp complications of (5 sources)Maternal obesity complicating , childbirth and the puerperium, antepartum; Translations: [Obesity complicating , unspecified trimester]67-61-4855SkwmydbKjqul complications of (2 sources)Obesity complicating , unspecified trimester; Translations: [Obesity complicating , unspecified trimester]Onset: 48-97-5635Mdpnxzr Other complications of (11 sources)History of pre-eclampsia; Translations: [Supervision of with other poor reproductive or obstetric history, unspecified trimester]Onset: 211546-09-0820LuqtpnvcXdfcr complications of (2 sources)Other mental disorders complicating , unspecified trimester; Translations: [Mental disorders of mother, antepartum condition or complication] Onset: 028852-16-3201XutjfkypBdjmn endocrine disorders (20 sources)Polycystic ovary syndrome; Translations: [Polycystic ovarian syndrome]Onset: 550016-35-6391VfuyemoEmhoa female genital disorders (4 sources)Abnormal uterine bleeding; Translations: [Abnormal uterine and vaginal bleeding, unspecified]05-79-3670ZzewwxqOnyuj female genital disorders (2 sources)Abnormal uterine and vaginal bleeding, unspecified; Translations: [Abnormal uterine and vaginal bleeding, unspecified]Onset: 61-78-9890Qymzoaw Other inflammatory condition of skin (5 sources)Pustular psoriasis of palms and soles; 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]14-57-8377KkaatmxAffzl inflammatory condition of skin (2 sources)Pustulosis palmaris et plantaris; 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]Onset: 26-47-2299VyqljovRslch nutritional; endocrine; and metabolic disorders (2 sources)Morbid (severe) obesity due to excess calories; Translations: [Morbid (severe) obesity due to excess calories]Onset: 35-87-8030YlriyqtKkoxz and delivery including normal (14 sources); Translations: [Encounter for supervision of normal , unspecified, unspecified trimester]82-40-5687KfhrsmdlPtzox screening for suspected conditions (not mental disorders or infectious disease) (2 sources)Alpha-fetoprotein blood test status; Translations: [Encounter for screening for raised alphafetoprotein level]46-15-4150UkwwqvumUmgeq upper respiratory infections (1 source)Chronic sinusitis, unspecified; Translations: [Unspecified sinusitis (chronic)]67-53-3065OnncrjoJxebp upper respiratory infections (3 sources)Sore throat symptom; Translations: [Acute pharyngitis, unspecified] 82-90-0015NjvagqpvMisnwezf codes; unclassified (2 sources)History of laparoscopy; Translations: [Other specified postprocedural states]97-58-9194PghbbnhsQwggoypi codes; unclassified (1 source)Gestation period, 9 weeks; Translations: [9 weeks gestation of ]44-86-9189BvuswsjzXsodytuj codes; unclassified (2 sources)Gestation period, 13 weeks; Translations: [13 weeks gestation of ]23-70-7858HftetkiaTgwovfep codes; unclassified (2 sources)Gestation period, 15 weeks; Translations: [15 weeks gestation of ]32-55-4070YuthjsvfJmqqblly codes; unclassified (2 sources)Gestation period, 17 weeks; Translations: [17 weeks gestation of ]32-05-8542CtoxjfvyWgewwskv codes; unclassified (2 sources)Gestation period, 20 weeks; Translations: [20 weeks gestation of ]06-34-6198AqkvodfqSuppvqxk codes; unclassified (2 sources)Gestation period, 22 weeks; Translations: [22 weeks gestation of ]80-01-7588RovzshpvSoaiytzn codes; unclassified (2 sources)Gestation period, 21 weeks; Translations: [21 weeks gestation of ]91-80-5034KyuwcthsFgzqiioo codes; unclassified (2 sources)Gestation period, 23 weeks; Translations: [23 weeks gestation of ]83-00-9764VvovlvqsHdjmiqaq codes; unclassified (1 source)20 weeks gestation of ; Translations: [20 weeks gestation of ]Onset: 06-57-9924IrhxcmysZwydewmkjuca (1 source)gHTNOnset: 05-17-2025 Past or Other Problems Problem ClassificationProblemDateDocumented DateEpisodic/ChronicCardiac dysrhythmias (8 sources)Palpitations; Translations: [Palpitations]Onset: 694824-01-0827 EpisodicNonspecific chest pain (3 sources)Chest pain, unspecified; Translations: [Chest pain]Onset: 11-03-2024 EpisodicOther female genital disorders (20 sources)Fallopian tube disorder; Translations: [Noninflammatory disorder of ovary, fallopian tube and broadligament, unspecified]Onset: 777222-74-6465 EpisodicUnclassified (2 sources)Patient encounter jqijnn68-66-7672Pchyvdsubohz (1 source)Onset: 485884-45-4745Pstgzznmrovf (1 source)Anxiety disorder affecting , funzzwxtac23-38-7895Mzefebh tract infections (3 sources)Acute cystitis; Translations: [Acute cystitis without hematuria] Onset: 442337-60-8240GcepbqhsSqzuw infection (1 source)COVID-19 Results Test NameValueInterpretationReference RangeFacilityUrinalysis macro (dipstick) panel (U)on 30-06-1234Antxfcbuh, UANegativeNegative - 4(70) +++ mg/dLNOMS HealthcareBlood, UANegativeNegative - 50 Surjit/mcLNOMS HealthcareClarity, UAClear NOMS HealthcareColor, UAYellowNOMS HealthcareGlucose, UANegativeNegative - 2000(110) ++++ mg/dLNOMS HealthcareInterpretation and review of laboratory resultsAbnormalNOMS HealthcareKetones, UANegativeNegative - 160(16) ++++ mg/dL NOMS HealthcareLeukocytes, UANegativeNegative - 500+++ Kaleigh/mcLNOMS Healthcare Nitrite, UANegativeNegative - PositiveNOMS HealthcarepH, UA6.05 - 9NOMS HealthcareProtein, UANegativeNegative - 2000(20) ++++ mg/dLNOMS HealthcareSpec Grav, UA1.0251 - 1.03NOMS HealthcareUrobilinogen, UA0.20.2 - 12 mg/dLNOMS HealthcareNOMS HealthcareUrinalysis macro (dipstick) panel (U)on 05-30-2025 Bilirubin, UANegativeNegative - 4(70) +++ mg/dLNOMS HealthcareBlood, UANegative Negative - 50 Surjit/mcLNOMS HealthcareClarity, UAClearNOMS HealthcareColor, UA YellowNOMS HealthcareGlucose, UANegativeNegative - 1999(110) ++++ mg/dLNOMS HealthcareInterpretation and review of laboratory resultsNormalNOAR Healthcare Ketones, UANegativeNegative - 160(16) ++++ mg/dLNOMS HealthcareLeukocytes, UA NegativeNegative - 500+++ Kaleigh/mcLNOMS HealthcareNitrite, UANegativeNegative - PositiveNOMS HealthcarepH, UA65 - 9NOMS HealthcareProtein, UANegativeNegative - 2000(20) ++++ mg/dLNOMS HealthcareSpec Grav, UA1.0251 - 1.03NOMS Healthcare Urobilinogen, UA0.20.2 - 12 mg/dLNOMS HealthcareNOMS HealthcareAFP, SERUM, OPEN SPINA BIFIDAon 86-97-3435ORW MOM0.85.NOMS HealthcareAFP VALUE38.2 ng/mL.NOMS HealthcareCOMMENT:Comment.[facility] HealthcareComment on above:Gema Ortez, Ph.D., [facility] Director References: Available Upon Request. Multiples Of Median Cutoffs For AFP Elevations Kumar 2.5 Black 2.8 IDD 2.0 Twins 4.5 Abbreviation Definitions IDD - Insulin Dep Diabetes OSBR - Open Spina Bifida Risk For further inquiries contact [email or web address] [facility] at [phone]. This test was developed and its performance characteristics determined by [employer]. It has not been cleared or approved by the Food and Drug Administration. Performed at: [facility] [address], [place], [place] [id number] Husbandry Person: Jesus Saleh [facility], Phone: [phone] GEST. AGE ON COLLECTION DATE21.1. weeksNOMS HealthcareGESTAT. AGE BASED ONLMP. [facility] HospitalComment on above:Recalculations are not recommended when gestational dating by LMP and ultrasound are within 10 days. INSULIN DEP DIABETESNo.[facility] HospitalINTERPRETATIONComment.[facility] Comment on above:Interpretation: Screen Negative This result is screen negative [...] Customer Services to discuss available options. The [employer] recommends amniocentesis be offered to women age 35 and older. MATERNAL AGE AT EDD35.5. yrJ[facility] HealthcareMULTIPLE GESTATIONNo.[facility] OSBR RISK 1 [id number].[facility] HospitalRACECaucasian.[facility] HospitalRESULTSReport. [facility] HospitalTEST RESULTS:Negative.[facility] HospitalCbeqssklrdDNLDSU762. lbsNOAR HealthcareN N LMP [id number] [phone] N 1 282 N [address] N N N White/ CLINISYNCSalem Memorial District HospitalUnlisted Lab Teston 00-22-0640Izqnv Free Cell Dnalow riskKindred Hospital Lima Health SystemProOhiohealth Hardin Memorial Hospital SystemB-TYPE NATRIURETIC PEPTIDEon 88-23-3743Rzttrlzukqd peptide B (Bld) [Mass/Vol]46 pg/mLNormal<=100ProOhiohealth Shelby Hospitalca Cleveland ClinicComment on above:Performed By: #### BNP #### [facility] ([facility]) [address] [place] [address] VIRUrinalysis macro (dipstick) panel (U)on 98-24-2321Hrbfuqbsi, UANegativeNegative - 4(70) +++ mg/dLNOAR HealthcareBlood, UANegativeNegative - 50 Surjit/mcLNOMS HealthcareClarity, UAClearNOMS HealthcareColor, UAYellowNOMS HealthcareGlucose, UANegativeNegative - 2000(110) ++++ mg/dLJORDAN VALLEY MEDICAL [facility]ENTER Healthcare Interpretation and review of laboratory resultsNormalNOMS HealthcareKetones, UA NegativeNegative - 160(16) ++++ mg/dLSalem Memorial District HospitalLeukocytes, UANegative Negative - 500+++ Kaleigh/mcLNOUniversity of Missouri Children's HospitalNitrite, UANegativeNegative - Positive NOMS HealthcarepH, UA65 - 9NOAR HealthcareProtein, UANegativeNegative - 2000(20) ++++ mg/dLJORDAN VALLEY MEDICAL CENTER HealthcareSpec Grav, UA1.0151 - 1.03NOAR HealthcareUrobilinogen, UA1.00.2 - 12 mg/dLFormerly [facility], [facility]antonTBH TOTAL PROTEIN 24 HOUR URINEon 81-54-5571PFANO PROTEIN URINE RANDOM<6.0NINF - 11.9 mg/dLSalem Memorial District Hospital TOTAL VOLUME 24 HOUR GNFGZ0749fQ/24hrSalem Memorial District HospitalCLINISYNCNOMS [facility] Hospital At SouthwoodsALL CBC WITH AUTO DIFFon 30-68-8398YEZTJBESP ABSOLUTE FTFL6ZNCWSalem Memorial District Hospital Basophils/100 WBC (Bld)0.2 %0.2 - 2.0 %[facility] HospitalEosinophils/100 WBC (Bld) 2.9 %0.9 - 7.0 %[facility] HospitalErythrocyte distribution width (RBC) [Ratio]12.3 %11.0 - 15.0 %[facility] HospitalIMMATURE GRANULOCYTES ABS AUTO0.09HighSalem Memorial District HospitalImmature granulocytes/100 WBC (Bld)0.7 %High0.0 - 0.5 %[facility] Interpretation and review of laboratory resultsAbnormMoses Taylor Hospital LYMPHOCYTES ABSOLUTE OXBD3SJRPSalem Memorial District HospitalLymphocytes/100 WBC (Bld)15.4 %Low20.5 - 60.0 %Christian HospitalH (RBC) [Entitic mass]31.3 pg26.7 - 34.0 pgChristian HospitalHC (RBC) [Mass/Vol]33.6 g/dL29.9 - 35.2 g/dLChristian HospitalV (RBC) [Entitic vol]93.2 fL81.0 - 99.0 fLSalem Memorial District HospitalMONOCYTES ABSOLUTE AUTO0.5[facility] HospitalMonocytes/100 WBC (Bld)4.1 %1.7 - 12.0 %[facility] HospitalNEUTROPHILS ABSOLUTE AUTO9.9HighSalem Memorial District HospitalNeutrophils/100 WBC (Bld)76.7 %High43.0 - 75.0 %[facility] HealthcarePlatelet mean volume (Bld) [Entitic vol]10.2 fL9.5 - 13.5 fLNOMS HealthcareTBH EO #0.4NOMS HealthcareTBH AQP403SBNG HealthcareTBH RBC3.8 LowNOMS HealthcareTBH TUT43FmxyQLME HealthcareCLINISYNCAPTTon 38-10-0333vMIK Coag (Bld) [Time]26.5 [facility] without diffon 04-17-2025 Platelets (Bld) [#/Vol]251 10*3/uLKindred Hospital DaytonRb Mcv (Fl) By Automated Count93.2PUniversity Hospitals Elyria Medical CenterLaboratory - Hematology and Cell countson 16-87-1993Bpifcifjei (Bld) [Volume fraction]35.4 %[facility] Hemoglobin (Bld) [Mass/Vol]11.9 g/dLNOAR HealthcareNo Panel Informationon 05-82-0870AMMT HealthcareUrinalysis macro (dipstick) panel (U)on 04-11-2025 Bilirubin, UANegativeNegative - 4(70) +++ mg/dLNOMS HealthcareBlood, UANegative Negative - 50 Surjit/mcLNOAR HealthcareClarity, UAClearNOMS HealthcareColor, UA YellowNOMS HealthcareGlucose, UANegativeNegative - 2000(110) ++++ mg/dLNOAR HealthcareInterpretation and review of laboratory resultsNormalNOAR Healthcare Ketones, UANegativeNegative - 160(16) ++++ mg/dLNOAR HealthcareLeukocytes, UA NegativeNegative - 500+++ [place]aleigh/mcLNOAR HealthcareNitrite, UANegativeNegative - PositiveNOMS HealthcarepH, UA65 - 9NOMS HealthcareProtein, UANegativeNegative - 2000(20) ++++ mg/dLNOAR HealthcareSpec Grav, UA1.0151 - 1.03NOAR Healthcare Urobilinogen, UA1.00.2 - 12 mg/dLNOAR HealthcareNOAR HealthcareUrinalysis macro (dipstick) panel (U)on 54-98-7995Bzhjeebao, UANegativeNegative - 4(70) +++ mg/dL [facility] HealthcareBlood, UANegativeNegative - 50 Surjit/mcLJORDAN VALLEY MEDICAL CENTER HealthcareClarity, UA ClearNOAR HealthcareColor, UAYellowNOAR HealthcareGlucose, UANegativeNegative - 2000(110) ++++ mg/dLJORDAN VALLEY [facility]ENTER HealthcareInterpretation and review of laboratory resultsAbnormalJORDAN VALLEY MEDICAL [facility] HealthcareKetones, UANegativeNegative - 160(16) ++++ mg/dL [facility] HospitalLeukocytes, UAPositiveNegative - 500+++ Kaleigh/mcLJORDAN VALLEY MEDICAL CENTER Healthcare Comment on above:2+Nitrite, UANegativeNegative - PositiveNOAR HealthcarepH, UA65 - 9NOMS HealthcareProtein, UANegativeNegative - 2000(20) ++++ mg/dLJORDAN VALLEY MEDICAL [facility]ENTER HealthcareSpec Grav, UA1.021 - 1.03NOAR HealthcareUrobilinogen, UA1.00.2 - 12 mg/dLSalem Memorial District HospitalNOAR HealthcareALL CBC WITH AUTO DIFFon 08-51-5125ABKFXSPFF ABSOLUTE AUTO0.1NOMS HealthcareBasophils/100 WBC (Bld)0.5 %0.2 - 2.0 %NOMColumbia Regional HospitalEosinophils/100 WBC (Bld)4 %0.9 - 7.0 %[facility] HospitalErythrocyte distribution width (RBC) [Ratio]12.2 %11.0 - 15.0 %NOMColumbia Regional HospitalIMMATURE GRANULOCYTES ABS AUTO0.08HighSalem Memorial District HospitalImmature granulocytes/100 WBC (Bld) 0.6 %High0.0 - 0.5 %[facility] HealthcareInterpretation and review of laboratory resultsAbnoVeterans Affairs Pittsburgh Healthcare SystemLYMPHOCYTES ABSOLUTE AUTO2.6NOUniversity of [facility] Lymphocytes/100 WBC (Bld)18.4 %Low20.5 - 60.0 %Christian HospitalH (RBC) [Entitic mass]31.5 pg26.7 - 34.0 pgChristian HospitalHC (RBC) [Mass/Vol]34.1 g/dL29.9 - 35.2 g/dLChristian HospitalV (RBC) [Entitic vol]92.4 fL81.0 - 99.0 fLSalem Memorial District HospitalMONOCYTES ABSOLUTE AUTO0.6[facility] HospitalMonocytes/100 WBC (Bld)4.3 % 1.7 - 12.0 %NOMColumbia Regional HospitalNEUTROPHILS ABSOLUTE AUTO10.1HighSalem Memorial District Hospital Neutrophils/100 WBC (Bld)72.2 %43.0 - 75.0 %NOM HealthcarePlatelet mean volume (Bld) [Entitic vol]10.2 fL9.5 - 13.5 fLNOUniversity of Missouri Children's HospitalTBH EO #0.6NOAR Healthcare TBH ZZH615RUYCRusk Rehabilitation Center RBC3.94LowNORusk Rehabilitation Center WBC13.9HighNOUniversity of [place] Children's HospitalCLINISYNCCBC without diffon 31-98-1840Kvjaveood (Bld) [#/Vol]261 10*3/uLKindred Hospital DaytonRb Mcv (Fl) By Automated Count92.4[facility] DaytonDrug Screen, Urineon 84-22-9841Jboapwvaamb/MethamphetamineNegative [facility] DaytonBarbituratesNegativeKindred Hospital Dayton BenzodiazepinesNegativeKindred Hospital DaytonCocaine MetaboliteNegative [facility] DaytonMethadoneNegativeKindred Hospital DaytonOpiatesNegative [facility] DaytonOxycodoneNegativeKindred Hospital DaytonPhencyclidine NegativeKindred Hospital DaytonThc Marijuana, UrineNegativeKindred Hospital DaytonHBV surface Ag IA Qlon 23-82-2146Qvnedheqy B Surface AntigenNegative [facility] DaytonHCV Ab IA Qlon 75-19-0146WCA Ab Ql (S)Non-Reactive [facility] DaytonHIV 1+2 Ab+HIV1 p24 Ag IA Qlon 10-14-3820ELR 1&2 AB/AG Non-ReactiveKindred Hospital DaytonHemoglobin A1con 35-11-7662XjJ0l (Bld) [Mass fraction]5.1 %4.0 - 6.0 %[facility] DaytonLaboratory - Hematology and Cell countson 95-43-4564Fndhmjbmyz (Bld) [Volume fraction]36.4 %[facility] Hemoglobin (Bld) [Mass/Vol]12.4 g/dLSalem Memorial District HospitalNo Panel Informationon 36-40-4038STTO HealthcareRubella IGG immune statuson 41-80-1178Uqesytl immune IgGIMMUNEKindred Hospital DaytonT. pallidum IgG+IgM IA Ql (S)Ordered By: Christina Bertrand on 89-44-5264NmxdsnqoIqq-ReactiveProMedica Health SystemType and screenon 20-01-8398Uex/Rh(D)PositiveKindred Hospital DaytonHCG ( test) Ql (U)on 24-03-5156Udkcqjebaiuqxt and review of laboratory resultsAbnormalJORDAN VALLEY [facility]ICAL [facility]ENTER Healthcare Preg Test, UrPositiveNegativeNOMS HealthcareNOMS HealthcareUS OB TRANSVAGINALon 24-19-8737NZ OB TRANSVAGINALFINDINGS: A single intrauterine gestational sac is present. [...] increase in vascularity, largest of the three 6.2x 5.2 x 5.1 cm, the remaining two measure 2.0 - 3.5 cm. Small amount of pelvic fluid. IMPRESSION: 1. Findings consistent with a live intrauterine gestation, current sonographic age of 9 weeks and 0days resulting in an estimated date of delivery of October 04, 2025. 2. Left ovarian benign cysts, overall left ovarian size 5.6 x 6.1 x 6.9 cm (123 cc volume). This can serve as a baseline for follow-up examinations if this represents a new finding. TRANSCRIBED BY: ELECTRONICALLY SIGNED BY: Apollo TinocoalNot AvailableComment on above:Order Comment: US OB TRANSVAGINAL No LMP recorded.Urinalysis macro (dipstick) panel (U)on 98-53-7370Fcphkjrfr, UA NegativeNegative - 4(70) +++ mg/dLNOMS HealthcareBlood, UANegativeNegative - 50 Surjit/mcLNOMS HealthcareClarity, UAClearNOMS HealthcareColor, UAYellowNOMS HealthcareGlucose, UANegativeNegative - 2000(110) ++++ mg/dLNOMS Healthcare Interpretation and review of laboratory resultsNormMoses Taylor HospitalKetones, UA NegativeNegative - 160(16) ++++ mg/dLNOMS HealthcareLeukocytes, UANegative Negative - 500+++ Kaleigh/mcLNOAR HealthcareNitrite, UANegativeNegative - Positive NOMS HealthcarepH, UA75 - 9NOMS HealthcareProtein, UANegativeNegative - 2000(20) ++++ mg/dLNOAR HealthcareSpec Grav, UA1.0051 - 1.03NOMS HealthcareUrobilinogen, UA0.20.2 - 12 mg/dLNOUniversity of Missouri Children's HospitalNOAR HealthcareALL PROGESTERONEon 01-18-2025 PROGESTERONE8.7 ng/mL.[facility] HealthcareComment on above:Follicular phase 0.1 - 0.9 Luteal phase 1.8 - 23.9 Ovulation phase 0.1 - 12.0 First trimester 11.0 - 44.3 Second trimester 25.4 - 83.3 Third trimester 58.7 - 214.0 Postmenopausal 0.0 - 0.1 Performed at: [facility] [address] [id number] Husbandry Person: Yobany Blount PhD, Phone: [phone] [facility] HospitalPATHOLOGY REQUEST FOR LAB CORPon 11-02-0141TRIULVFTA REQUEST FOR LAB [facility] HEALTHNOUniversity of [place] Children's HospitalComment on above:See report. Scanned copy available in EMR.SKIN SPECIMENFIREllwood Medical Center PROGESTERONEon 94-16-6835TVWSEEYBSLDC53.9 ng/mL.[facility] HealthcareComment on above:Follicular phase 0.1 - 0.9 Luteal phase 1.8 - 23.9 Ovulation phase 0.1 - 12.0 First trimester 11.0 - 44.3 Second trimester 25.4 - 83.3 Third trimester 58.7 - 214.0 Postmenopausal 0.0 - 0.1 Performed at: [facility] [address] [id number] Husbandry Person: Yobany Blount PhD, Phone: [phone] [facility] HospitalPathology Request for Lab Corpon 27-53-8020Lzglbvhvr Request for Lab [facility] Physician GroupComment on above:Order Comment: SKIN SPECIMENResult Comment: See report. Scanned copy available in EMR. PERFORMED BY: [place] [address] [place] [address] PATHOLOGIST SANITARIAN AIDE ANAHI TRAN M.D.Performed By: #### PATH TO [facility] #### [facility] [address] [place] [address] SKYLAP,APTIMA HPV,AGE GDLNon 17-82-9741HTH GDLN ACOG TESTING Note.NOMS HealthcareComment on above:TESTS RESULT FLAG UNITS REF RANGE LAB Clinician Provided Cytology Information Source.............Cervix;Endocervix No. of containers..01 ThinPrep Vial Age Algo ACOG Marjorie... FLAG LEGEND: L-Low Normal,H-High Normal,LL-Alert Low,HH-Alert High <-Panic Low,>-Panic High,A-Abnormal,AA-Critical Abnormal Performed at: 01 =G [address] [address] Vonnie Woodard MD, HPV APTIMANegativeNegativeNOMS HealthcareComment on above:This nucleic acid amplification test detects fourteen high- risk HPV types (16,18,31,33,35,39,45,51,52,56,58,59,66,68) without differentiation. Performed at: =[address] [id number] Husbandry Person: Vonnie Woodard MD, Phone: [phone] Performed at: [address] [id number] Husbandry Person: Vonnie Woodard MD, Phone: [phone] IGP, APTIMA HPV, RFX 16/18,45Note.NOMS HealthcareComment on above:TESTS RESULT FLAG UNITS REF RANGE LAB DIAGNOSIS: 02 NEGATIVE FOR INTRAEPITHELIAL LESION OR MALIGNANCY. Specimen adequacy: 02 Satisfactory for evaluation. Endocervical and/or squamous metaplastic cells (endocervical component) are present. Performed by: 02 Quiana Vyas, Human Services Program Specialist ([facility]) . 02 Note: Note 02 The Pap [...] <-Panic Low,>-Panic High,A-Abnormal,AA-Critical Abnormal Performed at: 02 [address] [facility] [address] [place] [address] Vonnie Woodard MD, BRUSH-SPATULA CERVIX ENDOCERVIX CLINISYNCNOMS [facility] SouthwoodsALL PROGESTERONEon 21-73-7905YRMGIWMVNPKC03.2 ng/mL.[facility] HealthcareComment on above:Follicular phase 0.1 - 0.9 Luteal phase 1.8 - 23.9 Ovulation phase 0.1 - 12.0 First trimester 11.0 - 44.3 Second trimester 25.4 - 83.3 Third trimester 58.7 - 214.0 Postmenopausal 0.0 - 0.1 Performed at: [facility] Lab[address] [id number] Husbandry Person: Yobany Blount PhD, Phone: [phone] [facility] AND AUTO DIFFon 64-70-7152SWGEEKSM BASOPHIL0.1 X10E9/LNormal0.0-0.2ProMedica [address]. Mary Regional Medical CenterComment on above:Performed By: #### LUKAS TY, , 31888-5, THYR #### [facility] ([id number]) [address] [place] [address] 87562VLRYOYJZ NEUTROPHIL6.9 X10E9/LHigh1.5-6.6ProUt Health [facility] Athens HospitalComment on above:Performed By: #### LUKAS TY, , 17594-5, THYR #### [facility] ([id number]) [address] [place] [address] 94462Uabwxxmal/100 WBC (Bld)1.1 %NormalProUt Health [facility] Hospital Comment on above:Performed By: #### LUKAS TY, , 42349-7, THYR #### [facility] ([id number]) [address] [place] [address] 18376Frrqjlvcciv (Bld) [#/Vol]0.3 10*3/uLNormal0.0-0.4Paulding County HospitalComment on above:Performed By: #### LUKAS TY, , 01158-7, THYR #### [facility] ([id number]) [address] [place] [address] 03301Dipmbuxkfjg/100 WBC (Bld)2.3 %NormalPaulding County Hospital Comment on above:Performed By: #### LUKAS TY, 50121-1, 26191-6, THYR #### [facility] ([id number]) [address] [place] [address] 92671Buzmynhxsdk distribution width (RBC) [Ratio]12.6 %Normal 11.5-15.0Paulding County HospitalComment on above:Performed By: #### KARSON, LUKAS, , 40853-9, THYR #### [facility] ([id number]) [address] [place] [address] 76054Fdvjtcnmcl (Bld) [Volume fraction]40.4 %Zlqyrj05-66XnxSyoacrUt Health East Texas Athens HospitalComment on above:Performed By: #### LUKAS TY, , 25813-1, THYR #### [facility] ([id number]) [address] [place] [address] 29248Gazdgecpbu (Bld) [Mass/Vol]13.7 g/aQBdbpgx18.7-15.5PMercy Health St. Charles HospitalComment on above:Performed By: #### LUKAS TY, , 46135-9, THYR #### [facility] ([id number]) [address] [place] [address] 19199Meflmcwmpbt (Bld) [#/Vol]3.6 10*3/uLHigh1.0-3.5PMercy Health St. Charles HospitalComment on above:Performed By: #### CBCGavin CMP, , 05706-8, THYR #### [facility] ([id number]) [address] [place] [address] 82379Dbcjsssqipw/100 WBC (Bld)31.6 %NormalPaulding County Hospital Comment on above:Performed By: #### CBCGavin, CMP, , 74284-0, THYR #### [facility] ([id number]) [address] [place] [address] 94889FJA (RBC) [Entitic mass]30.9 hqJaafdy80-82RzzFddvjcUt Health East Texas Athens HospitalComment on above:Performed By: #### CBCA, CMP, 32213-5, 65133-3, THYR #### [facility] ([id number]) [address] [place] [address] 04329HQKG (RBC) [Mass/Vol]34.0 g/jZNnxuqk46-54HliTjzgiyUt Health East Texas Athens HospitalComment on above:Performed By: #### CBCA, CMP, 82671-8, 13188-6, THYR #### [facility] ([id number]) [address] [place] [address] 46095MEK (RBC) [Entitic vol]91 cPNpjdsh31-700UiqDqtuas [facility]remont HospitalComment on above:Performed By: #### CBCA, CMP, 02632-9, 80376-8, THYR #### [facility] ([id number]) [address] [place] [address] 59554Rollkbfcq (Bld) [#/Vol]0.6 10*3/uLNormal0-0.9Paulding County HospitalComment on above:Performed By: #### CBCA, CMP, 50667-4, 36214-7, THYR #### [facility] ([id number]) [address] [place] [address] 86632Inislzdot/100 WBC (Bld)5.4 %NormalPaulding County Hospital Comment on above:Performed By: #### CBCA, CMP, 11790-2, 36509-6, THYR #### [facility] ([id number]) [address] [place] [address] 38110Msksidrqhqj/100 WBC (Bld)59.6 %NormalPaulding County Hospital Comment on above:Performed By: #### KARSON, CMP, 93798-5, 89702-3, THYR #### [facility] ([id number]) [address] [place] [address] 74138Dimdpkhx mean volume (Bld) [Entitic vol]7.9 fLNormal7-12 [facility] HospitalComment on above:Performed By: #### CBCGavin, CMP, - 9, 85728-3, THYR #### [facility] ([id number]) [address] [place] [address] 48713Jfjqndmbs (Bld) [#/Vol]346 10*3/kPKnpxbm947-543QveHrlasg [facility] HospitalComment on above:Performed By: #### KARSON, CMP, , 64690-4, THYR #### [facility] ([id number]) [address] [place] [address] 13806PYV COUNT4.44 X10E12/LNormal3.80-5.20[facility] Comment on above:Performed By: #### KARSON, CMP, , 90810-7, THYR #### [facility] ([id number]) [address] [place] [address] 04083WGT (Bld) [#/Vol]11.5 10*3/uLHigh4.0-11.0Paulding County HospitalComment on above:Performed By: #### CBCGavin, CMP, 45589-5, 30129-8, THYR #### [facility] ([id number]) [address] [place] [address] 72724DEANACKTHXGMM METABOLIC PANELon 91-23-1413Nmjlgbm [Mass/Vol]4.0 g/dLNormal3.2-5.3PMercy Health St. Charles HospitalComment on above:Performed By: #### CBCGavin, CMP, 48091-6, 30704-3, THYR #### [facility] ([id number]) [address] [place] [address], [place] [address]ALD [Catalytic activity/Vol]50 U/MJolgwi43-836NcuFpdstdUt Health East Texas Athens HospitalComment on above:Performed By: #### KARSON, LUKAS, 68841-0, 83994-7, THYR #### [facility] ([id number]) [address] [place] [address], [place] [address]PWZ [Catalytic activity/Vol]19 U/LNormal0-31PMercy Health St. Charles HospitalComment on above:Performed By: #### KARSON, LUKAS, 32881-6, 78401-6, THYR #### [facility] ([id number]) [address] [place] [address] [place] [address]Mcmft gap [Moles/Vol]11 mmol/LNormal5-15ProUt Health [facility] HospitalComment on above:Performed By: #### LUKAS TY, 48561-7, 77960-4, THYR #### [facility] ([id number]) [address] [place] [address] [place] [address]EDW [Catalytic activity/Vol]18 U/LNormal0-41ProUt Health [facility] HospitalComment on above:Performed By: #### LUKAS TY, 59036-7, 83594-5, THYR #### [facility] ([id number]) [address] [place] [address] 09856Xiomneaix [Mass/Vol]0.4 mg/dLNormal0.3-1.2PMercy Health St. Charles HospitalComment on above:Performed By: #### KARSON, LUKAS, 80447-0, 61120-5, THYR #### [facility] ([id number]) [address] [place] [address], [place] [address]Uschcrd [Mass/Vol]9.4 mg/dLNormal8.5-10.5PMercy Health St. Charles HospitalComment on above:Performed By: #### LUKAS TY, 43862-4, 96167-5, THYR #### [facility] ([id number]) [address] [place] [address] 17800Bnenwqtm [Moles/Vol]106 mmol/KXrxnsj03-708SqrAgzgsnPaulding County HospitalComment on above:Performed By: #### LUKAS TY, 04739-6, 92979-2, THYR #### [facility] ([id number]) [address] [place] [address] 27139FD9 [Moles/Vol]23 mmol/EJtpgod31-50WhvHropssMercy Health St. Charles Hospital Comment on above:Performed By: #### LUKAS TY, 18760-4, 36036-1, THYR #### [facility] ([id number]) [address] [place] [address] 29335Igidkzmodi [Mass/Vol]0.76 mg/dLNormal0.40-1.00Paulding County HospitalComment on above:Result Comment: METHOD TRACEABLE TO IDMS STANDARD Performed By: #### LUKAS TY, 79612-1, 27474-1, THYR #### [facility] ([id number]) [address] [place] [address] 83159zAUT (CKD-EPI) NON-RACE DEPENDENT>90Normal>59ProUt Health East [facility] HospitalComment on above:Result Comment: Reported eGFR is based on the CKD-EPI 2021 equation that does not use a race coefficient.Performed By: #### LUKAS TY, 98539-3, 10567-8, THYR #### [facility] ([id number]) [address] [place] [address] 89118Txjzidp [Mass/Vol]114 mg/uONadz93-86XhmLtvxniPaulding County Hospital Comment on above:Performed By: #### LUKAS TY, 05513-4, 44758-6, THYR #### [facility] ([id number]) [address] [place] [address] 86452Vhsvqkgvi [Moles/Vol]4.1 mmol/LNormal3.5-5.0ProUt Health [facility] HospitalComment on above:Performed By: #### LUKAS TY, 82805-5, 87182-2, THYR #### [facility] ([id number]) [address] [place] [address] 21520Tzcrije [Mass/Vol]7.3 g/dLNormal6.0-8.0ProUt [facility] HospitalComment on above:Performed By: #### LUKAS TY, 91487-9, 88741-5, THYR #### [facility] ([id number]) [address] [place] [address] 10219Ukhszl [Moles/Vol]140 mmol/WSmyywh248-316PhnBwapgr [facility] HospitalComment on above:Performed By: #### LUKAS TY, 38904-1, 30453-5, THYR #### [facility] ([id number]) [address] [place] [address] 19217Sbsi nitrogen [Mass/Vol]13 mg/dLNormal5-23Pro[facility] HospitalComment on above:Performed By: #### LUKAS TY, 05002-2, 26219-3, THYR #### [facility] ([id number]) [address] [place] [address] 97655Lvyzbe D-dimer DDU (PPP) [Mass/Vol]on 11-04-2024D DIMER<150 Normal<255ProUt Health East Texas Athens HospitalComment on above:Result Comment: Results <255 ng/mL DDU: The presence of a VTE can safely be excluded with a negative D-Dimer result and Wells score. A negative result doesn't exclude the possibility of DIC. The test be repeated along with other diagnostic tests if the patient's symptoms persist or worsen. [email or web address] By: #### LUKAS TY, 39487-7, 57794-7, THYR #### [facility] ([id number]) [address] [place] [address] 59962GXJ ( test) Ql (U)on 78-77-2006Kdfn HCG ( test) Ql (U)NegativeNormalNEGProUt Health East Texas Athens HospitalComment on above: Performed By: #### 2106-3 #### [facility] ([id number]) [address] [place] [address] 10719WIJDWSSJYwp 57-21-1684Vxrisisrz [Mass/Vol]2.3 mg/dLNormal 1.8-2.6Pro[facility] HospitalComment on above:Performed By: #### LUKAS TY, , 00749-0, THYR #### [facility] ([id number]) [address] [place] [address] 80405TVUWTQU PROFILEon 97-93-7137Wltp T4 [Mass/Vol]0.88 ng/dLNormal 0.61-1.60Paul[facility] County HospitalComment on above:Performed By: #### LUKAS TY, , 37503-5, THYR #### [facility] ([id number]) [address] [place] [address] 98972XBQ0.78 uIU/mLNormal0.49-4.67Pro[facility] Health [facility] HospitalComment on above:Performed By: #### LUKAS TY, 09490-9, 90307-4, THYR #### [facility] ([id number]) [address] [place] [address] 08114NNV MACROSCOPIC NURon 52-39-6259VVINDQRSQ NURNegativeNormalNEG ProMKaiser Foundation HospitalComment on above:Performed By: #### NUM #### [facility] ([id number]) [address] [place] [address] 94478TDIGJ/HGB NURTraceAbnormalNEGPaulding County HospitalComup health system on above:Performed By: #### NUM #### [facility] ([id number]) [address] [place] [address] 76660JOZPUQB NURNegativeNormalNEGPaulding County HospitalComment on above:Performed By: #### NUM #### [facility] ([id number]) [address] [place] [address] 00804KWCNMGM NURNegativeNormalNEGPaulding County HospitalComup health system on above:Performed By: #### NUM #### [facility] ([id number]) [address] [place] [address] 51672UNHDDGTXR ESTERASE NURSmallAbnormalNEGPaulding County HospitalComment on above:Performed By: #### NUM #### [facility] ([id number]) [address] [place] [address] 09874UNUBMOV NURNegativeNormalNEGPaulding County HospitalComup health system on above:Performed By: #### NUM #### [facility] ([id number]) [address] [place] [address] [place] [address]CY NUR6.7Ikkuet5.0-8.5ProMed[facility] St[facility] Mary Regional Medical CenterComment on above:Performed By: #### NUM #### [facility] ([id number]) [address] [place] [address] 34853UHLPGVH NURNegativeNormalNEGProUt Health East [facility] HospitalComup health system on above:Performed By: #### NUM #### [facility] ([id number]) [address] [place] [address] [place] [address]YAWZUBRN GRAVITY NUR1.783Hvyclu8.003-1.035ProUt Health [facility] HospitalComment on above:Performed By: #### NUM #### [facility] ([id number]) [address] [place] [address] 53250DHRCVPMEQDON NUR0.2 eu/dLNormal<1.1PMercy Health St. Charles Hospital Comment on above:Performed By: #### NUM #### [facility] ([id number]) [address] [place] [address] 62265EY CHEST 1 VWon 75-15-9296LV CHEST 1 VWXR CHEST 1 VW History: Palpitations Exam/Technique: Portable upright AP chest Comparison: 11/12/2022 Findings: There is no active pulmonary or pleural disease displayed. Cardiac and mediastinal contours appear within normal limits on this AP projection. IMPRESSION: No evidence of active pulmonary disease. Finalized by Tres Giron MD on 11/04/2024 1:02 AMNormalBarberton Citizens Hospital PROGESTERONEon 80-79-3541QDHAHRJUSFKJ94.8 ng/mL.[facility] Comment on above:Follicular phase 0.1 - 0.9 Luteal phase 1.8 - 23.9 Ovulation phase 0.1 - 12.0 First trimester 11.0 - 44.3 Second trimester 25.4 - 83.3 Third trimester 58.7 - 214.0 Postmenopausal 0.0 - 0.1 Performed at: [employer] [id number] Husbandry Person: Yobany Blount PhD, Phone: [phone] [facility] HOSPITALSegetisHeartland Behavioral Health Services PROGESTERONEon 05-42-1555HDDZYNQXATER62.3 ng/mL.[facility] HospitalComment on above:Follicular phase 0.1 - 0.9 Luteal phase 1.8 - 23.9 Ovulation phase 0.1 - 12.0 First trimester 11.0 - 44.3 Second trimester 25.4 - 83.3 Third trimester 58.7 - 214.0 Postmenopausal 0.0 - 0.1 Performed at: [facility] [address] [id number] Husband[employer] Person: Yobany Blount PhD, Phone: [phone] [facility] PROGESTERONEon [id number] ng/mL.[facility] HealthcareComment on above:Follicular phase 0.1 - 0.9 Luteal phase 1.8 - 23.9 Ovulation phase 0.1 - 12.0 First trimester 11.0 - 44.3 Second trimester 25.4 - 83.3 Third trimester 58.7 - 214.0 Postmenopausal 0.0 - 0.1 Performed at: [address] [id number] Husband[employer] Person: Yobany Blount PhD, Phone: [phone] [facility] PROGESTERONEon [id number] ng/mL.[facility] HealthcareComment on above:Follicular phase 0.1 - 0.9 Luteal phase 1.8 - 23.9 Ovulation phase 0.1 - 12.0 First trimester 11.0 - 44.3 Second trimester 25.4 - 83.3 Third trimester 58.7 - 214.0 Postmenopausal 0.0 - 0.1 Performed at: [address] [id number] Husband[employer] Person: Yobany Blount PhD, Phone: [phone] [facility] CBC WITH AUTO DIFFon [id number] ABSOLUTE AUTO0.1[facility] HealthcareBasophils/100 WBC (Bld)0.6 %0.2 - 2.0 %[facility] Eosinophils/100 WBC (Bld)2.8 %0.9 - 7.0 %[facility] HealthcareErythrocyte distribution width (RBC) [Ratio]12.1 %11.0 - 15.0 %[facility] HealthcareHematocrit (Bld) [Volume fraction]40.6 %36.0 - 48.0 %[facility] HealthcareHemoglobin (Bld) [Mass/Vol]13.5 g/dL 12.0 - 16.0 g/dLNOAR HealthcareIMMATURE GRANULOCYTES ABS AUTO0.02[facility] Immature granulocytes/100 WBC (Bld)0.3 %0.0 - 0.5 %[facility] HealthcareLYMPHOCYTES ABSOLUTE AUTO1.8[facility] HealthcareLymphocytes/100 WBC (Bld)23.0 %20.5 - 60.0 %[facility] HealthcareMCH (RBC) [Entitic mass]30.6 pg26.7 - 34.0 pgChristian HospitalHC (RBC) [Mass/Vol]33.3 g/dL29.9 - 35.2 g/dLChristian HospitalV (RBC) [Entitic vol]92.1 fL 81.0 - 99.0 fLSalem Memorial District HospitalMONOCYTES ABSOLUTE AUTO0.5[facility] Monocytes/100 WBC (Bld)6.6 %1.7 - 12.0 %[facility] HospitalNEUTROPHILS ABSOLUTE AUTO 5.3NOMS [facility]woodsNeutrophils/100 WBC (Bld)66.7 %43.0 - 75.0 %[facility] Platelet mean volume (Bld) [Entitic vol]9.8 fL9.5 - 13.5 fLSalem Memorial District HospitalTB EO #0.2NOMS [facility] SouthwoodsTB [id number] Rehabilitation Center RBC4.41NORusk Rehabilitation Center WBC8.0 [facility] HospitalCLINISYNCNMetropolitan Saint Louis Psychiatric CenterALL CBC WITH AUTO DIFFon 04-24-2024 BASOPHILS ABSOLUTE AUTO0.1NOMS [facility]woodsBasophils/100 WBC (Bld)0.5 %0.2 - 2.0 % [facility] HospitalEosinophils/100 WBC (Bld)2.8 %0.9 - 7.0 %[facility] Erythrocyte distribution width (RBC) [Ratio]12.0 %11.0 - 15.0 %[facility] Hematocrit (Bld) [Volume fraction]39.7 %36.0 - 48.0 %[facility] HospitalHemoglobin (Bld) [Mass/Vol]13.4 g/dL12.0 - 16.0 g/dLSalem Memorial District HospitalIMMATURE GRANULOCYTES ABS AUTO0.03NOUniversity of Missouri Children's HospitalImmature granulocytes/100 WBC (Bld)0.3 %0.0 - 0.5 % [facility] HospitalInterpretation and review of laboratory resultsAbnormalNOUniversity of Missouri Children's HospitalLYMPHOCYTES ABSOLUTE AUTO2.9NOMS [facility] SouthwoodsLymphocytes/100 WBC (Bld) 24.4 %20.5 - 60.0 %[facility] HospitalH (RBC) [Entitic mass]30.7 pg26.7 - 34.0 pg Christian HospitalHC (RBC) [Mass/Vol]33.8 g/dL29.9 - 35.2 g/dLNOAR HealthcareMCV (RBC) [Entitic vol]91.1 fL81.0 - 99.0 fLNOMS HealthcareMONOCYTES ABSOLUTE AUTO 0.6NOMS HealthcareMonocytes/100 WBC (Bld)5.2 %1.7 - 12.0 %[facility] NEUTROPHILS ABSOLUTE AUTO8.0HighNOMS HealthcareNeutrophils/100 WBC (Bld)66.8 % 43.0 - 75.0 %NOMS HealthcarePlatelet mean volume (Bld) [Entitic vol]10.1 fL9.5 - 13.5 fLNOMS HealthcareTBH EO #0.3NOMS HealthcareTBH GKC262DRGT HealthcareTBH RBC 4.36NOMS HealthcareTBH WBC12.0HighNOMS HealthcareCLINISYNCNOMS HealthcarePOCT EKGOrdered By: Sheyla Powell on 02-55-7990GljUqfcrnUniversity Hospitals Elyria Medical CenterNo Panel InformationOrdered By: Pinky Singh on 59-22-1575Penwz Strep (POC)[facility] Medical CenterCytology Cervical or vaginal smear or scraping studyon 45-45-9801LEFB HealthcareCOVID/FLU/RSV RT-PCRon 25-90-1015LAMP-CoV-2 (COVID-19) RNA PEACE+probe Ql (Unsp spec)PositiveNosoutheast missouri hospital [facility] Other COVID/FLU/RSV RT-PCRNegativeNort [facility] Other Vital Signs Date TimeVital SignValuePerforming EekrahlsjXrqhbdif96-98-3033 09:03-0400 Diastolic blood mm[Hg]Rody Qiu COLLAR POINTER Work Phone: [facility] HospitalCcqjlstops16-54-1287 09:03-0400Systolic blood jobigbgi196 mm[Hg]Rody Qiu COLLAR POINTER Work Phone: [facility] HospitalNkclhminut17-56-8219 09:02-0400Body mass index (BMI) [Ratio]42.99 kg/m2UxnoxrqoRody Qiu COLLAR POINTER Work Phone: [facility] HospitalFplztipxkj29-90-8348 09:02-0400Body oosqmg062.25 kgAlexeybibiana Resendezly COLLAR POINTER Work Phone: [phone])[address] [place], [place] 2797010-09-2025 16:31-0400Body mass index (BMI) [Ratio]43.49 kg/u6Hlvrcgug Uyen COLLAR POINTER Work Phone: 1(419)[address] [place], [place] 2797010-09-2025 16:31-0400Body tmszsy436.73 kgAlexeybibiana Branderly COLLAR POINTER Work Phone: 1(419)[address] [place] [address]-09-2025 16:31-0400Diastolic blood efpfgalx37 mm[Hg]Rody Uyen COLLAR POINTER Work Phone: 1(419)[address] [place], [place] 2797010-09-2025 16:31-0400Systolic blood spzedpeg517 mm[Hg]Rody Uyen COLLAR POINTER Work Phone: 1(419)[address] [place], [place] 2797010-02-2025 15:07-0400Body mass index (BMI) [Ratio]43.03 kg/r0Hmsjkvsm Uyen COLLAR POINTER Work Phone: 1(419)[address] [place], [place] 2797010-02-2025 15:07-0400Body lgfozn651.37 kgAlexeyminga Uyen COLLAR POINTER Work Phone: [phone])[address] [place], [place] 2797010-02-2025 15:07-0400Diastolic blood ywrsnnef30 mm[Hg]Rody Uyen COLLAR POINTER Work Phone: 1(904)[address] [place], [place] 2797010-02-2025 15:07-0400Systolic blood bzqmwhwu165 mm[Hg]Rody Uyen COLLAR POINTER Work Phone: 1(419)[address] [place], [place] 2797009-26-2025 07:51-0400Body ytfpjz307.7 cmYordy Cruz MD Work Phone: 1(419)[address]09-26-2025 07:51-0400Body mass index (BMI) [Ratio]42.96 kg/m2Yordy Cruz MD Work Phone: 1(419)[address]09-26-2025 07:51-0400Body .14 kgYordy Cruz MD Work Phone: 1(419)[address]09-26-2025 07:51-0400Diastolic blood ivprarsl59 mm[Hg]Yordy Cruz MD Work Phone: 1(571)[address]09-26-2025 07:51-0400Heart rate 87 /Glenna Cruz MD Work Phone: 1(627)[address]09-26-2025 07:51-0400Systolic blood epzeaweb005 mm[Hg]Yordy Cruz MD Work Phone: 1(521)[address]09-04-2025 11:30-0400Body mass index (BMI) [Ratio]42.88 kg/a2Kaubc Davie DO Work Phone: 1(158)[address]09-04-2025 11:30-0400Body ijzrpf075.91 kgCorey Davie DO Work Phone: 1(074)639-[address] [place], [place] [address]Nnhgvptybj88-09-0629 11:30-0400Diastolic blood kickkvbj85 mm[Hg]Caesar Davie DO Work Phone: 1(890)[facility] [place], [place] [address]Kkumhxguju79-86-6334 11:30-0400Systolic blood wahoufkr927 mm[Hg]Caesar Davie DO Work Phone: 1(587)394-[address] [place], [place] [address]Eveldrukxb78-35-2744 11:00-0400Body mass index (BMI) [Ratio]42.63 kg/i3Xmntt Davie DO Work Phone: 1(830)799-[address] [place], [place] [address]Kuwzvoykzq56-51-6179 11:00-0400Body osqtmm084.19 kgCorey Davie DO Work Phone: 1(836)842-[address] [place], [place] [address]Etoyuvwbbl38-61-1457 11:00-0400Diastolic blood vhocsghc46 mm[Hg]Caesar Davie DO Work Phone: 1(136)521-[address] [place] [address]-21-2025 11:00-0400Systolic blood vmyphwzh951 mm[Hg]Caesar Davie DO Work Phone: 1(206)896-[address] [place], [place] [address]Tuqazfvpnb95-73-4514 11:42-0400Body mass index (BMI) [Ratio]42.29 kg/f5Yrpvz Davie DO Work Phone: 1(942)987-[address] [place] [address]-07-2025 11:42-0400Body .15 kgCorey Davie DO Work Phone: [facility] HospitalLzonnfbubm03-81-5690 11:42-0400Diastolic blood opysnwfm03 mm[Hg]Caesar Davie DO Work Phone: [facility] HospitalTblriyydge48-33-3217 11:42-0400Systolic blood vkejdxtj723 mm[Hg]Caesar Davie DO Work Phone: 1(596)679-[address] [place], [place] [address]Bpvohtufwc50-50-9620 10:03-0400Body mass index (BMI) [Ratio]41.66 kg/i2AagudVA [facility]07-11-2025 10:03-0400Body weight 124.29 kgVA [facility]07-11-2025 10:03-0400Diastolic blood szktbvel77 mm[Hg][facility]07-11-2025 10:03-0400Systolic blood zvfezlnw887 mm[Hg][facility]05-15-2025 10:52-0400Body zypxie798.7 Gilmer Lopez MD Work Phone: 1()[address]05-15-2025 10:52-0400 Body mass index (BMI) [Ratio]40.84 kg/s6PozhxuRobbie Lopez MD Work Phone: 1(216)[address] [place], [place] [address]05-15-2025 10:52-0400 Body jwxrlacfrhi10.81 [degF]Robbie Lopez MD Work Phone: 1(216)[facility] [place], [place] 3730705-15-2025 10:52-0400 Body icruwe880.84 kgRobbie Lopez MD Work Phone: 1(216)[address] [place], [place] [address]57[address]05-15-2025 10:52-0400 Diastolic blood rutmboyn47 mm[Hg]Robbie Lopez MD Work Phone: 1(216)[address]05-15-2025 10:52-0400 Heart rate73 /minRobbie Lopez MD Work Phone: 1(216)714-[address] [place], [place] [address]30705-15-2025 10:52-0400 Systolic blood azpokfyh772 mm[Hg]Robbie Lopez MD Work Phone: [facility]04-29-2025 13:38-0400 Body mass index (BMI) [Ratio]40.35 kg/x4Lsfyg Davie DO Work Phone: [facility] HospitalYgmcjdndda98-61-5060 13:38-0400Body xpyuyq563.39 kgCorey Davie DO Work Phone: 1(926)381-[address] [place], [place] [address]Lnanmzrafz42-42-6567 13:38-0400Diastolic blood mm[Hg]Caesar Davie DO Work Phone: [facility] HospitalCisujpvuru49-82-5485 13:38-0400Systolic blood vgiomhqv478 mm[Hg]Caesar Davie DO Work Phone: [facility] HospitalIkcubdqfwz47-66-1771 14:36-0400Body mass index (BMI) [Ratio]40.75 kg/r2Ryvli Davie DO Work Phone: 1(601)424-[address] [place], [place] [address]Xrjnxfxovq89-77-8790 14:36-0400Body .56 kgCorey Davie DO Work Phone: 1(079)887-[address] [place], [place] [address]Orpfilvagu49-06-0720 14:36-0400Diastolic blood pknziphr59 mm[Hg]Caesar Davie DO Work Phone: [facility] HospitalBvttgtlkrj23-76-3340 14:36-0400Systolic blood yuzpclws574 mm[Hg]Caesar Davie DO Work Phone: 1(132)006-[address] [place], [place] [address]Zrkweboltu97-38-1657 14:03-0400Diastolic blood pkuejsft00 mm[Hg]Caesar Davie DO Work Phone: [facility] HospitalPutdqbfchh02-39-3765 14:03-0400Systolic blood krhovhnu559 mm[Hg]Caesar Davie DO Work Phone: [facility] HospitalRosofzpkqw81-34-5805 13:12-0500Body mass index (BMI) [Ratio]40.01 kg/b0Davqi Davie DO Work Phone: 1(419)[address] [place], [place] 2797012-02-2024 13:12-0500Body iqqdrp767.35 kgCorey Davie DO Work Phone: 1(120)[address] [place], [place] 2797012-02-2024 13:12-0500Diastolic blood qnqoqqgq66 mm[Hg]Caesar Davie DO Work Phone: 1(010)[facility] [place], [place] [address]Gaoynbnzfl17-03-3345 13:12-0500Systolic blood xblkqynj170 mm[Hg]Caesar Davie DO Work Phone: 1(187)[address] [place], [place] 2797010-21-2024 14:39-0400Body tiqmuo738.7 cmCorey Davie DO Work Phone: 1(608)[address] [place], [place] 2797010-21-2024 14:39-0400Body mass index (BMI) [Ratio]39.53 kg/i7Yncah Davie DO Work Phone: 1(417)[address] [place], [place] 2797010-21-2024 14:39-0400Body xptxai734.94 kgCorey Davie DO Work Phone: 1(137)[address] [place], [place] 2797010-21-2024 14:39-0400Diastolic blood mm[Hg]Caesar Davie DO Work Phone: 1(884)[address] [place], [place] 2797010-21-2024 14:39-0400Systolic blood usqtamyz070 mm[Hg]Caesar Davie DO Work Phone: 1(060)[address] [place], [place] 2797009-12-2024 11:39-0400Body adiybg494.84 kgCorey Davie DO Work Phone: 1(156)[address] [place], [place] 2797009-12-2024 11:39-0400Diastolic blood sjoalqvy28 mm[Hg]Caesar Davie DO Work Phone: 1(342)[address] [place], [place] 2797009-12-2024 11:39-0400Systolic blood ocbtweip841 mm[Hg]Caesar Davie DO Work Phone: 1(481)[address] [place], [place] 2797008-20-2024 09:36-0400Body aqrftt610.57 kgCorey Daive DO Work Phone: 1(462)[address] [place], [place] 2797008-20-2024 09:36-0400Diastolic blood qaksihpp98 mm[Hg]Caesar Broderick DO Work Phone: [facility] HospitalYovetvdkpu57-90-7754 09:36-0400Systolic blood tvnecqcs053 mm[Hg]Caesar Broderick DO Work Phone: [facility] HospitalFgulvtoooo13-58-9131 10:50-0400Body ikyzie056.7 cmTelham Fraire MD Work Phone: 1(170)989-[facility]Power[facility]07-23-2024 10:50-0400Body mass index (BMI) [Ratio]40.66 kg/r7DpfoslJames Fraire MD Work Phone: 1(249)224TextPowerKind[facility]07-23-2024 10:50-0400Body qsonex005.29 kgJames Fraire MD Work Phone: 1(205)139-TextPowerKind[facility]07-23-2024 10:50-0400Diastolic blood asjfunbj38 mm[Hg]James Fraire MD Work Phone: 1(247)676-[address] [place], [place] 8332707-23-2024 10:50-0400Heart rate 83 /minJames Fraire MD Work Phone: 1(498)3TextPowerKind[facility]07-23-2024 10:50-6608BuQ2% (BldA) [Mass fraction]98 %James Fraire MD Work Phone: [facility]07-23-2024 10:50-0400Systolic blood zaqfzqdr577 mm[Hg]James Fraire MD Work Phone: 1(136)137-TextPowerKind[facility]04-04-2024 12:26-0400Body .72 cm[facility]04-04-2024 12:26-0400Body mass index (BMI) [Ratio]42.6 kg/h8UklhvnchkMetrohealth Main Campus Medical Center04-04-2024 12:26-0400Body ijmblrmorsz07.3 [degF][facility]04-04-2024 12:26-0400Body .11 kgMet[facility] Center04-04-2024 12:26-0400Diastolic blood jrerjnjn69 mm[Hg][facility] 11-24-2023 12:26-0400Heart rate75 /[facility] 11-24-2023 12:26-0400Respiratory rate18 /[facility] 11-24-2023 12:26-2183AzY1% (BldA) [Mass fraction]98 %[facility]04-04-2024 12:26-0400Systolic blood sdenrzul981 mm[Hg][facility]02-20-2023 11:35-0500Body scunik544.72 cmPamelgavin Singh Other [employer] Other 02-20-2023 11:35-0500Body mass index (BMI) [Ratio] 42.27 kg/p0AlypmmPinky Singh Other [employer] Other 02-20-2023 11:35-0500Body lfxmifqhtwz04.8 [degF]Pinky Hernandezmond Other [employer] Other 02-20-2023 11:35-0500Body .1 kgPinky Singh Other [employer] Other 02-20-2023 11:35-0500Respiratory rate18 /Sera Singh Other [employer] Other 02-20-2023 11:35-6925YcZ5% (BldA) [Mass fraction]98 % Pinkypushpa Singh Other [employer] Other Encounters Encounter DateEncounter TypeCare ProviderFacilityStart: 06-18-2025 End: 67-46-7164Butesx outpatient visit 25 minutesIra Anthony MCKEON Work Phone: [phone]-Gvmng [facility] Comment on above:Chronic hypertension affecting (Primary Dx); 20 weeks gestation of ; Anxiety disorder affecting , antepartum; Acute palmoplantar pustular psoriasis; Severe obesity due to excess calories affecting , antepartum ([facility]) Start: 06-18-2025 End: 29-30-2763rrgplsnwsxYRNPiedmont Athens Regional HospitalStart: 06-18-2025 End: 22-25-7124vlucahefwdOUTHXLeConte Medical Center HospitalStart: 06-05-2025 End: 35-29-8535Mxaltb flowsMark Qiu COLLAR POINTER Work Phone: [facility]BGYNStart: 06-05-2025 End: 30-07-4397Ipjcpo flowsMark Qiu COLLAR POINTER Work Phone: [facility]BGYNStart: 06-05-2025 End: 04-72-6398Xqlcnrms flow sheetRody Qiu COLLAR POINTER Work Phone: [facility] OBGYNComment on above:Second trimester ([facility]); 23 weeks gestation of ([facility]Start: 06-05-2025 End: 12-28-0634nyljkdmkccVPPXUPAP EBERLYNot AvailableStart: 05-30-2025 End: 59-05-5749Atkeqbnv flow sheetTheresaa Uyen COLLAR POINTER Work Phone: [facility] [place] [facility]BGYNComment on above:Chronic hypertension affecting ([facility]) (Primary Dx); Second trimester ([facility]); 22 weeks gestation of ([facility])Start: 05-30-2025 End: 04-96-1420nbxziksswqBHVXIVIY EBERLYNot AvailableStart: 05-30-2025 End: 87-51-4907Xujokj flowsheetTheresaa Uyen COLLAR POINTER Work Phone: [facility] [place] [facility]BGYNStart: 05-30-2025 End: 29-37-9614Yzfjxq flowsheetRody Qiu COLLAR POINTER Work Phone: [facility]BGYNStart: 05-24-2025 End: 88-44-3138Nbdamv OnlyAmy Lithonia LPFLaternal- Medicine at [facility] HospitalComment on above:Acute palmoplantar pustular psoriasis (Primary Dx); Chronic hypertension affecting ; Severe obesity due to excess calories affecting , antepartum ([facility]); Hypertension affecting in second trimesterStart: 05-23-2025 End: 96-50-0644rxccsaimgmIRLDEQMI EBERLYNot AvailableStart: 05-23-2025 End: 94-54-5249Qphhrbpa flow Karel Qiu NP Work Phone: [facility] [place] OBGYNComment on above:Second trimester ([facility]); 21 weeks gestation of ([facility]); induced hypertension, antepartum ([facility]); Vitamin D deficiency; H/O pre-eclampsia in prior , currently ([facility])Start: 05-23-2025 End: 54-79-3693Gybiuj Jennyfer Qiu NP Work Phone: [facility] [place] [facility]BGYNStart: 05-23-2025 End: 64-17-2271Lumibpherminio Qiu NP Work Phone: [facility] [place] [facility]BGYNStart: 05-23-2025 End: 49-77-7154Acrzdtntp Result EncounterCorey Davie DO Work Phone: NOEF External Department UnsolicitedStart: 05-17-2025 End: 93-00-1596Pietki consultation new/estab patient 62 Hannah Hare MD Work Phone: [phone]-Jvhfu [facility] Comment on above:Chronic hypertension affecting (Primary Dx); Acute palmoplantar pustular psoriasis; Severe obesity due to excess calories affecting , antepartum ([facility]); 20 weeks gestation of pregnancyStart: 05-17-2025 End: 96-50-6532Lriihe OnlyAmy Lithonia LPFLaternal- Medicine at [facility] HospitalComment on above:Acute palmoplantar pustular psoriasis (Primary Dx); Chronic hypertension affecting ; Severe obesity due to excess calories affecting , antepartum ([facility]); Hypertension affecting in second trimesterStart: 04-29-2025 End: 89-77-5313Bnqrgzkcx department patient visitCOMMUNFORT HAMILTON [facility] Hospitaltart: 04-25-2025 End: 74-52-1256Kbqgah flowsheetCorey Davie DO Work Phone: [facility]BGYNStart: 04-25-2025 End: 79-79-4441Gtnssj flowsheetCorey Davie DO Work Phone: [facility]BGYNStart: 04-25-2025 End: 10-26-0289Syrcjy outpatient visit 15 minutesCorey Davie DO Work Phone: [facility] [place] OBGYNComment on above:Screening, , for anatomic survey ([facility]); Second trimester ([facility]); 17 weeks gestation of ([facility]); Screen for STD (sexually transmitted disease); Need for maternal serum alpha-protein (MSAFP) screening ([facility]); induced hypertension, antepartum ([facility]); Vitamin D deficiencyStart: 04-25-2025 End: 46-23-1567rxxbxajkoqGQZMW FAZIONot AvailableStart: 04-23-2025 End: 08-23-0678Smirm Caroline Cruz MD Work Phone: [phone]-Qucmv [facility] Start: 04-21-2025 End: 43-02-4671Beujhulag Result EncounterCorey Davie DO Work Phone: noms External Department UnsolicitedStart: 04-21-2025 End: 93-72-7741Rkuuqayjg Result EncounterCorey Davie DO Work Phone: noms External Department UnsolicitedStart: 04-19-2025 End: 56-63-0959Iunjvq Fozia Moise RNMaternal- Medicine at [facility] HospitalComment on above:Hypertension affecting in second trimester (Primary Dx)Start: 04-17-2025 End: 67-45-8065Ftfvhgtup Result EncounterCorey Davie DO Work Phone: noms External Department UnsolicitedStart: 04-17-2025 End: 82-25-3999Krxuqaxkw Result EncounterCorey Davie DO Work Phone: noms External Department UnsolicitedStart: 04-11-2025 End: 99-18-5713Cxgobt flowsheetCorey Davie DO Work Phone: [facility] OBGYNStart: 04-11-2025 End: 02-50-2313Poljkt flowsheetCorey Davie DO Work Phone: [facility] OBGYNStart: 04-11-2025 End: 30-80-2323Ygeudo outpatient visit 15 minutesCorey Dvaie DO Work Phone: [facility] [place] OBGYNComment on above:15 weeks gestation of ([facility]); Second trimester ([facility]); Acute nonintractable headache, unspecified headache type; BP check; Gestational hypertension, antepartum ([facility]); induced hypertension, antepartum ([facility])Start: 04-11-2025 End: 95-72-9620Ipfwrzc encounter statusCorey Davie DO Work Phone: NO HealthcareStart: 04-11-2025 End: 63-62-3873nzkdyekiulJMDGT FAZIONot AvailableStart: 03-28-2025 End: 65-92-9698Hkphde flowsheetCorey Davie DO Work Phone: [facility] [place] [facility]BGYNStart: 03-28-2025 End: 84-76-3285Yhajda flowsheetCorey Davie DO Work Phone: [facility] [place] [facility]BGYNStart: 03-28-2025 End: 73-21-9310Aqvzdr outpatient visit 15 minutesCorey Davie DO Work Phone: [facility] OBGYNComment on above:13 weeks gestation of ([facility]); Second trimester ([facility]); Acute nonintractable headache, unspecified headache typeStart: 03-28-2025 End: 69-95-0129reiztqwoliEHVIQ FAZIONot AvailableStart: 03-20-2025 End: 11-56-6221Skeifmozp Result EncounterCorey Davie DO Work Phone: noms External Department UnsolicitedStart: 03-20-2025 End: 68-28-3502Ngzjglvzj Result EncounterCorey Davie DO Work Phone: noms External Department UnsolicitedStart: 03-01-2025 End: 73-97-1810Istttw outpatient visit 5 minutesFazio Nurse [facility] Bcp ObNOMS BCP OBStart: 03-01-2025 End: 31-44-6669beblghbkpwFXQAC FAZIONot AvailableStart: 01-16-2025 End: 91-95-2577Rgwwvnpdt Result EncounterCorey Davie DO Work Phone: noms External Department UnsolicitedStart: 01-16-2025 End: 00-14-3166Hlftjdiml Result EncounterCorey Davie DO Work Phone: noms External Department UnsolicitedStart: 01-03-2025 End: 89-41-8340Tqlthbb encounter procedureRobbie Lopez MD Work Phone: Steve OrrmabieComment on above:Encounter for preprocedural laboratory examination (Primary Dx); Abnormal uterine bleedingStart: 01-03-2025 End: 03-65-4494Kbeulda encounter statusRobbie Lopez MD Work Phone: [facility] Work Phone: Start: 01-03-2025 End: 19-40-4970fevxphzbqaSBNPUF S WEINERMANUnCommunity Memorial Hospitaltart: 01-03-2025 End: 45-80-4402Ydfmxhccv for preprocedural laboratory examinationRACHEL S [facility] Centertart: 12-18-2024 End: 40-64-3544Xtkejbpa Result EncounterCorey Davie DO Work Phone: noms External Department UnsolicitedStart: 12-18-2024 End: 61-30-3289Aoyapeju Result EncounterCorey Davie DO Work Phone: noms External Department UnsolicitedStart: 12-18-2024 End: 00-32-1133Qhyirtv encounter procedureCorey Davie DO Work Phone: noms BCP OBComment on above:Skin moleStart: 12-18-2024 End: 63-00-8065kgnybjypudTpicx FazioFiUniversity [facility]als [facility] Work Phone: Start: 12-18-2024 End: 03-93-7363Urhsisur ReferredCorey Davie DO Work Phone: [facility] Path Spec [place] HospStart: 12-17-2024 End: 74-86-3949Anbfcndjf Result EncounterCorey Davie DO Work Phone: noms External Department UnsolicitedStart: 12-17-2024 End: 79-93-7087Ehydoqovn Result EncounterCorey Davie DO Work Phone: noms External Department UnsolicitedStart: 12-10-2024 End: 55-39-1946Sapsoyx encounter procedureCorey Davie DO Work Phone: noms HealthcareStart: 12-10-2024 End: 71-30-9974Pwyvulyk preventive med est patient 18-39 yrsCorey Davie DO Work Phone: noms BCP OBComment on above:Well woman exam with routine gynecological examStart: 12-10-2024 End: 00-15-0198zjiagjcdsgPFLZC FAZIONot AvailableStart: 12-10-2024 End: 85-42-1007Crminv flowsheetCorey Davie DO Work Phone: [facility] BCP OBStart: 12-10-2024 End: 17-76-3692Ngjqdk flowsheetCorey Davie DO Work Phone: [facility] BCP OBStart: 12-10-2024 End: 00-93-4770Tkofjzqof Result EncounterCorey Davie DO Work Phone: [facility] External Department UnsolicitedStart: 11-16-2024 End: 26-69-4991Bcjcstnwn Result EncounterCorey Davie DO Work Phone: [facility] External Department UnsolicitedStart: 11-16-2024 End: 25-20-7695Myikiugjh Result EncounterCorey Davie DO Work Phone: [facility] External Department UnsolicitedStart: 11-12-2024 End: 82-02-8873Hvqpnz outpatient visit 15 minutesCorey Davie DO Work Phone: [facility] OBComment on above:Encounter for fertility planning; Acute cystitis without hematuria; PCOS (polycystic ovarian syndrome); Fallopian tube disorderStart: 11-12-2024 End: 24-49-8937Dsruwu flowsheetCorey Davie DO Work Phone: [facility] OBStart: 11-12-2024 End: 55-06-1068Ukssxo flowsheetCorey Davie DO Work Phone: [facility] OBStart: 11-12-2024 End: 63-79-4056kiyumtnwjbLWNVK FAZIONot AvailableStart: 11-03-2024 End: 99-76-9073Edmckzxuo department patient visitCOMMUNFORT [facility]tart: 10-18-2024 End: 16-82-1923Bnkiuzfnl Result EncounterCorey Davie DO Work Phone: [facility] External Department UnsolicitedStart: 10-18-2024 End: 30-31-0208Djomdqtpq Result EncounterCorey Davie DO Work Phone: [facility] External Department UnsolicitedStart: 09-17-2024 End: 76-10-3165Dfugwqpwt Result EncounterCorey Davie DO Work Phone: [facility] External Department UnsolicitedStart: 09-17-2024 End: 07-17-0111Psnnwgfuc Result EncounterCorey Davie DO Work Phone: [facility] External Department UnsolicitedStart: 08-16-2024 End: 14-43-8434Njyzncsmc Result EncounterCorey Davie DO Work Phone: [facility] External Department UnsolicitedStart: 08-16-2024 End: 31-82-8192Taxyndqzm Result EncounterCorey Davie DO Work Phone: [facility] External Department UnsolicitedStart: 07-23-2024 End: 28-50-6197Rozfwy flowsheetCorey Davie DO Work Phone: [facility] BCP OBStart: 07-23-2024 End: 71-84-5549Veacvv flowsheetCorey Davie DO Work Phone: NOPG BCP OBStart: 07-23-2024 End: 83-73-4225jfmxtozgluNVVGJ FAZIONot AvailableStart: 07-23-2024 End: 22-46-7811Kgaaie outpatient visit 15 minutesCorey Davie DO Work Phone: NOYN BCP OBComment on above:PCOS (polycystic ovarian syndrome); Encounter for fertility planningStart: 07-18-2024 End: 40-00-8176Mqtwlnywb Result EncounterCorey Davie DO Work Phone: NOHF External Department UnsolicitedStart: 07-18-2024 End: 83-00-4187Yerxhxuzd Result EncounterCorey Davie DO Work Phone: NOMS External Department UnsolicitedStart: 06-11-2024 End: 80-01-0745Qpxmbi follow up visit related to original pxCorey Davie DO Work Phone: NOMS BCP OBComment on above:Postoperative visit; S/P laparoscopic procedureStart: 06-11-2024 End: 73-91-2881Phtuwk flowsheetCorey Davie DO Work Phone: NOMS BCP OBStart: 06-11-2024 End: 89-01-5422Gybiys flowsheetCorey Davie DO Work Phone: NOSJ BCP OBStart: 06-11-2024 End: 46-15-6262uxbzhgepkbMWTOT FAZIONot AvailableStart: 06-01-2024 End: 54-98-4584Huzfwkyjn Result EncounterCorey Davie DO Work Phone: NOMS External Department UnsolicitedStart: 06-01-2024 End: 20-13-9904Vixqvidea Result EncounterCorey Davie DO Work Phone: NOMS External Department UnsolicitedStart: 05-03-2024 End: 70-91-3382Teanod outpatient visit 15 minutesCorey Davie DO Work Phone: [facility] OBComment on above:Pre-op examination; Pelvic pain in female; Fallopian tube disorderStart: 05-03-2024 End: 40-61-5163Ncxryezvcmlsa examination doneCorey Davie DO Work Phone: NOMS HealthcareStart: 04-24-2024 End: 72-87-1759Bihtfirif Result EncounterCorey Davie DO Work Phone: NOMS External Department UnsolicitedStart: 04-24-2024 End: 33-40-2195Hivvgiyfx Result EncounterCorey Davie DO Work Phone: NOMS External Department UnsolicitedStart: 04-10-2024 End: 15-59-9447Ejvunj flowsheetCorey Davie DO Work Phone: NOMS BCP OBStart: 04-10-2024 End: 82-61-3511Fberrz flowsheetCorey Davie DO Work Phone: NOMS BCP OBStart: 04-10-2024 End: 59-10-0007Szyrru outpatient visit 15 minutesCorey Davie DO Work Phone: [facility] OBComment on above:Encounter for fertility planning; PCOS (polycystic ovarian syndrome); Pelvic pain in female; Abnormal uterine bleeding (AUB)Start: 03-13-2024 End: 85-15-5946Mqzhzt outpatient visit 15 minutesJames Fraire MD Work Phone: [facility] CardiologyComment on above:Heart palpitations (Primary Dx)Start: 03-12-2024 End: 98-82-5895Mvtxctcgq encounterJennshayne Powell [facility]ITALProMedica Physicians CardiologyStart: 02-22-2024 End: 60-26-4617Yhixo abstractingScanning Provider ExternalProMedica Physicians CardiologyStart: 11-24-2023 End: 23-35-9290icqvxayopqIiklsfvxrKettering Health Hamilton Work Phone: Start: 11-24-2023 End: 66-68-0777Ojqbewq encounter procedureBetsy [facility] Work Phone: Start: 10-11-2022 End: 75-30-0038zmwgrrakboEgetzy Dymond Other [facility] Other Start: 28-82-0057Ifntht outpatient new 20 minutes Pinky SinghFPG Urgent Care [facility] Procedures DateProcedureProcedure DetailPerforming ClinicianStart: 41-90-2679Fzohg dip stick/tablet rgnt non-auto w/o micrscpKristina Uyen COLLAR POINTER Work Phone: Start: 47-94-4477Qdfkk dip stick/tablet rgnt non-auto w/o micrscpKristina Uyen COLLAR POINTER Work Phone: Start: 83-02-8502NUP, SERUM, OPEN SPINA BIFIDACorey Davie DO Work Phone: Start: 42-79-0769Hhfvt dip stick/tablet rgnt non-auto w/o micrscpCorey Davie DO Work Phone: Start: 01-75-5374NKD TOTAL PROTEIN 24 HOUR URINECorey Davie DO Work Phone: Start: 88-44-7771Wruff count complete automatedNot In System Ref ProvStart: 84-30-7111MBI CBC WITH AUTO DIFFCorey Davie DO Work Phone: Start: 99-69-0397Ctwhu dip stick/tablet rgnt non-auto w/o micrscpCorey Davie DO Work Phone: Start: 31-04-0911Ebtpg dip stick/tablet rgnt non-auto w/o micrscpCorey Davie DO Work Phone: Start: 60-96-2003Wvoibrim screenYordy Cruz MD Work Phone: Start: 87-84-4024Jwas scrn 1+ class nonchromoNot In System Ref ProvStart: 79-98-8433Lxmxaorywv glycosylated q2cBaxgknlc Provider ExternalStart: 15-52-4485Kfqxcxzzd c antibodyNot In System Ref ProvStart: 00-37-0828YXS 1&2 AB/AG SCREEN (P24 AG)Not In System Ref ProvStart: 03-20-2025 Iaad ia hepatitis b surface antigenNot In System Ref ProvStart: 03-20-2025 SYPHILIS TOTAL(UNKNOWN SYPHILIS STATUS)Not In System Ref ProvStart: 03-20-2025 TYPE AND SCREENNot In System Ref ProvStart: 38-21-8186MFT CBC WITH AUTO DIFF Caesar Davie DO Work Phone: Start: 03-01-2025 End: 27-55-4521Ojdmm dip stick/tablet rgnt non-auto w/o micrscpCorey Davie DO Work Phone: Start: 74-75-0510PBG PROGESTERONECorey Davie DO Work Phone: Start: 89-58-9324SYTKHFWXK REQUEST FOR LAB CORPCorey Davie DO Work Phone: Start: 07-56-9545KKN PROGESTERONECorey Davie DO Work Phone: Start: 65-52-0578OZM,APTIMA HPV,AGE GDLNCorey Davie DO Work Phone: Start: 50-88-9527Bylxabpkbwh observation [Identifier] in Cervix by Cyto stainCorey Davie DO Work Phone: Start: 73-49-5871IZM PROGESTERONECorey Davie DO Work Phone: Start: 75-35-9162AAO PROGESTERONECorey Davie DO Work Phone: Start: 90-90-7061NCG PROGESTERONECorey Davie DO Work Phone: Start: 21-41-0901DJH PROGESTERONECorey Davie DO Work Phone: Start: 30-19-1770WWW PROGESTERONECorey Davie DO Work Phone: Start: 12-40-2151ADT CBC WITH AUTO DIFFCorey Davie DO Work Phone: Start: 74-07-3292LBN CBC WITH AUTO DIFFCorey Davie DO Work Phone: Start: 64-80-9232Lme routine ecg w/least 12 lds w/i&r James Fraire MD Work Phone: Start: 62-18-8275Emidl Strep (POC)Start: 11-23-2022 Microscopic observation [Identifier] in Cervix by Cyto stainScanning External Start: 62-63-3236Epynltwkjgf observation [Identifier] in Cervix by Cyto stain Caesar Davie DO Work Phone: Start: 61-29-0849Wgbg cerv/vag auto thin layer prep mnl screenAmy Zackary RECREATION PROGRAM SPECIALIST Work Phone: Plan of Treatment DateCare ActivityDetailAuthorStart: 68-66-6964Kfaqjo Vaccines (1 of 2)Zoster Vaccines (1 of 2)[facility], IncStart: 25-44-4733Tudfhahov for malignant neoplasm of cervixNOMS HealthcareStart: 43-64-1005Dizikwbzl for malignant neoplasm of cervixNOMS HealthcareStart: 85-51-3442Hapdj BMI Screening Adult BMI ScreeningCincinnati Shriners Hospital SystemStart: 56-28-1463Araheug Screening Tobacco ScreeningCincinnati Shriners Hospital SystemStart: 12-16-2025 End: 39-46-4408Tfoclod encounter procedureNOMS BCP OBStart: 95-82-4853Cvwrclgvw for malignant neoplasm of cervixPap SmearCincinnati Shriners Hospital SystemStart: 73-85-0323Ozslebebi for malignant neoplasm of cervixPap SmearNOAR Healthcare Start: 54-60-7182Mcgjuyo ScreeningTobacco ScreeningCincinnati Shriners Hospital SystemStart: 06-24-2025 End: 29-80-7545Mkuzlwf encounter mkeochcpk67/03/2025 1:50 PM EST Routine NOMTrent WUN [address] [place], [id number] Caesar Broderick DO [address] [place] [address] LIANA WUNStart: 06-18-2025 End: 72-89-5044Zdtlcvpasuuq consultation with vzuzsgs9106/18/2025 2:00 PM EDT Telemedicine Maternal- Medicine at [facility] [address] [place] [phone] Yordy Cruz MD [address] [facility] [address] [place] [address] [facility] 06-18-2025 End: 27-64-0282Ieyboie encounter mtlvqeycq04/28/2025 8:00 AM EDT Appointment [facility] - Ultrasound [address] [place] [address] [facility]Do[facility] - [facility]trasoundStart: 06-05-2025 End: 31-58-1322Rslvjnk encounter procedureNOMS [place] OBGYNComment on above: ArrivedStart: 05-30-2025 End: 64-37-9415Lwmzzfb encounter procedureNOMS [place] OBGYNComment on above: ArrivedStart: 05-25-2025 End: 76-85-8430Ijind fetoprotein, maternalAlpha fetoprotein, maternal Lab Routine Need for maternal serum alpha-protein (MSAFP) screening ([facility]) Expected: 05/25/2025 (Approximate), Expires: 05/25/2025N[facility]S HealthcareComment on above:Expected: 05/25/2025 (Approximate), Expires: 05/25/2025Start: 05-23-2025 End: 63-34-7299Pikqwar encounter ehzzpjpdm42/02/2025 2:30 PM EDT Routine [facility] [place] [facility] [address] [place], [id number] Rody Qiu, JEM [address] [place] [phone] NOMS [place] OBGYNStart: 05-20-2025 End: 01-46-5524EZ MFM with or without consultUS MFM with or without consult Imaging Routine Hypertension affecting in second trimesterExpected: 05/20/2025 (Approximate), Expires: 04/19/2026[facility] Work Phone: comment on above:Expected: 05/20/2025 (Approximate), Expires: 04/19/2026Start: 05-17-2025 End: 47-94-5468NZ MFM with or without consultUS MFM with or without consult Imaging Routine 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 Severe obesity due to excess calories affecting , antepartum ([facility]) Hypertension affecting in second trimester Expected: 05/17/2025, Expires: 05/17/2026[facility] Work Phone: Comment on above:Expected: 05/17/2025, Expires: 05/17/2026Start: 05-17-2025 End: 98-09-1869Etkqedu encounter procedureProTrumbull Regional [facility] US ImagingStart: 04-25-2025 End: 56-72-0537Etuijyf encounter procedureNOAR [place] OBGYNComment on above: ArrivedStart: 17-13-4801Ezrbcchww vaccinationNOMS HealthcareStart: 04-11-2025 End: 99-72-9965Mcmbnil aminotransferase [Enzymatic activity/volume] in Serum or PlasmaALT Lab Routine Gestational hypertension, antepartum ([facility]-HCC) induced hypertension, antepartum ([facility]HS-HCC) Expected: 04/11/2025 (Approximate), Expires: 04/11/2026[facility] HealthcareComment on above:Expected: 04/11/2025 (Approximate), Expires: 04/11/2026Start: 04-11-2025 End: 74-00-5865Tdncwacdr aminotransferase [Enzymatic activity/volume] in Serum or PlasmaAST Lab Routine Gestational hypertension, antepartum (HHS-HCC) induced hypertension, antepartum (HHS-HCC) Expected: 04/11/2025 (Approximate), Expires: 04/11/2026NO[facility] HealthcareComment on above:Expected: 04/11/2025 (Approximate), Expires: 04/11/2026Start: 04-11-2025 End: 04-07-5060VFA W Auto Differential panel - BloodCBC and differential Lab Routine Gestational hypertension, antepartum (HHS-HCC) induced hy pertension, antepartum (HHS-HCC) Expected: 04/11/2025 (Approximate), Expires: 04/11/2026[facility] HealthcareComment on above:Expected: 04/11/2025 (Approximate), Expires: 04/11/2026Start: 04-11-2025 End: 74-67-0173Atqdchtbqf [Mass/volume] in Serum or PlasmaCreatinine Lab Routine Gestational hypertension, antepartum (HHS-HCC) induced hypertension, antepartum ([facility]-HCC) Expected: 04/11/2025 (Approximate), Expires: 04/11/2026[facility] Healthcare Work Phone: comment on above:Expected: 04/11/2025 (Approximate), Expires: 04/11/2026Start: 04-11-2025 End: 86-77-2267Qsnvypi dehydrogenase [Enzymatic activity/volume] in Serum or Plasma by Lactate to pyruvate reactionLactate dehydrogenase Lab Routine Gestational hypertension, antepartum (HHS-HCC) induced hypertension, antepartum (HHS-HCC) Expected: 04/11/2025, Expires: 04/11/2026[facility] Comment on above:Expected: 04/11/2025, Expires: 04/11/2026Start: 04-11-2025 End: 84-60-2459Xjhrxos, urine, 24 hourProtein, urine, 24 hour Lab Routine Gestational hypertension, antepartum (HHS-HCC) induced hypertension, antepartum (HHS-HCC) Expected: 04/11/2025 (Approximate), Expires: 04/11/2026[facility] HealthcareComment on above:Expected: 04/11/2025 (Approximate), Expires: 04/11/2026Start: 04-11-2025 End: 54-88-4119By and pttPt and ptt Lab Routine Gestational hypertension, antepartum (HHS-HCC) induced hypertension, antepartum (HHS-HCC) Expected: 04/11/2025, Expires: 04/11/2026[facility] HealthcareComment on above: Expected: 04/11/2025, Expires: 04/11/2026Start: 04-11-2025 End: 89-68-5275Bhpqu [Mass/volume] in Serum or PlasmaUric acid Lab Routine Gestational hypertension, antepartum (HHS-HCC) induced hypertension, antepartum (HHS-HCC) Expected: 04/11/2025 (Approximate), Expires: 04/11/2026[facility] HealthcareComment on above:Expected: 04/11/2025 (Approximate), Expires: 04/11/2026Start: 04-11-2025 End: 60-62-9510Vwls nitrogen [Mass/volume] in Serum or PlasmaBUN Lab Routine Gestational hypertension, antepartum (HHS-HCC) induced hypertension, antepartum (HHS-HCC) Expected: 04/11/2025, Expires: 04/11/2026[facility] Comment on above:Expected: 04/11/2025, Expires: 04/11/2026Start: 04-11-2025 End: 85-54-7667Egptmmw encounter procedureNOMS Aman OBGYNComment on above: ArrivedStart: 03-28-2025 End: 22-27-3970Ckoeoiy encounter procedureNOMS BCP OBComment on above:Arrived Start: 96-95-0456Bzfom BMI ScreeningAdult BMI ScreeningCincinnati Shriners Hospital System Start: 27-73-2351Qoncqvs ScreeningTobacco ScreeningProOhiohealth Hardin Memorial Hospital SystemStart: 03-01-2025 End: 37-18-4849MGY/RhABO/Rh Lab Routine Missed menses , unspecified gestational age ([facility]) Expected: 03/01/2025 (Approximate), Expires: 03/01/2026[facility] HealthcareComment on above:Expected: 03/01/2025 (Approximate), Expires: 03/01/2026Start: 03-01-2025 End: 17-74-5985Tagat type and Indirect antibody screen panel - BloodType and screen Lab Routine Missed menses , unspecified gestational age ([facility]) Expected: 03/01/2025 (Approximate), Expires: 03/01/2026[facility] Work Phone: comment on above:Expected: 03/01/2025 (Approximate), Expires: 03/01/2026Start: 03-01-2025 End: 35-45-0881Pfjyg of abuse panel - Urine by Screen methodRapid drug screen, urine Lab Routine , unspecified gestational age ([facility]) Encounter for supervision of normal first in first trimester ([facility]) Expected: 03/01/2025 (Approximate), Expires: 03/01/2026[facility] HealthcareComment on above: Expected: 03/01/2025 (Approximate), Expires: 03/01/2026Start: 02-03-2025 End: 41-20-5749Qksnmynvwzwvqhzmid ( test) [Presence] in UrinePOCT , urine manually resulted Point of Care Testing Routine Encounter for preprocedural laboratory examination Expected: 02/03/2025 (Approximate), Expires: 04/05/2025[facility] Work Phone: Comment on above:Expected: 02/03/2025 (Approximate), Expires: 04/05/2025Start: 02-03-2025 End: 97-18-9336ArkspdcuzxusdtiXnmybebnjekyhkv Procedures Routine Abnormal uterine bleeding Expected: 02/03/2025 (Approximate), Expires: 01/03/2026[facility] Service Area Work Phone: Comment on above:Expected: 02/03/2025 (Approximate), Expires: 01/03/2026Start: 02-03-2025 End: 14-91-0027VE.doppler Uterus and Fallopian tubes W saline IUUS sonohysterogram Imaging Routine Abnormal uterine bleeding Expected: 02/03/2025 (Approximate), Expires: 01/03/2026[facility] Work Phone: Comment on above:Expected: 02/03/2025 (Approximate), Expires: 01/03/2026Start: 12-18-2024 End: 91-71-9776Yqrfpsy encounter jbqbnjisv02/29/2025 1:30 PM EDT Procedure Visit [facility] [address] [place] [phone] Caesar Broderick, DO [address] [place] [address] NOMS BCP OBStart: 45-39-6036ZxpummbftKettering Health Hamiltontart: 12-10-2024 End: 27-60-8747Mfmnsct encounter procedureNOMS BCP OBComment on above:Arrived Start: 11-12-2024 End: 16-47-1082Xaauohf encounter procedureNOMS BCP OBComment on above:Arrived Start: 07-23-2024 End: 96-83-3593Rkwdakc encounter vafhcgdaf64/02/2024 1:00 PM EST Office Visit [facility] [address] [place] [phone] Caesar Broderick, DO [address] [place] [address] N[facility]S BCP OBStart: 06-11-2024 End: 19-14-9027Juarfuw encounter /21/2024 2:20 PM EDT Office Visit [facility] [address] [place] [phone] Caesar Broderick, DO [address] [place] [address] ArrivedNOAR BCP OBComment on above:ArrivedStart: 06-01-2024 End: 26-10-4834Lmfalfa encounter /11/2024 8:30 AM EDT Procedure Visit [facility] EXT DEP Caesar Broderick, DO [address] [place] [address] [place] [address] NOMS EXT DEPStart: 05-03-2024 End: 82-29-8549Lupmydx encounter tyrhevryh63/12/2024 11:40 AM EDT Consult [facility] [address] [place] [phone] Caesar Broderick, DO [address] [place] [address] [place] [address] NOMS BCP OBStart: 49-18-6011RPWLS-19 Vaccine ( season)COVID-19 Vaccine ( season)[facility] Start: 54-82-6578Fftouzmkm vaccinationNOAR HealthcareStart: 04-10-2024 End: 22-58-6256Rnzluonadkaqm hormone (AMH)Antimullerian hormone (AMH) Lab Routine PCOS (polycystic ovarian syndrome) Expected: 04/10/2024 (Approximate), Expires: 04/10/2025[facility] HealthcareComment on above:Expected: 04/10/2024 (Approximate), Expires: 04/10/2025Start: 04-10-2024 End: 50-10-5141CCMXCKUW Lab Routine PCOS (polycystic ovarian syndrome) Expected: 04/10/2024 (Approximate), Expires: 04/10/2025[facility] HealthcareComment on above: Expected: 04/10/2024 (Approximate), Expires: 04/10/2025Start: 04-10-2024 End: 40-24-9513YT for pregnancyUS PELVIS-TRANSVAG IF INDICATED Imaging Routine PCOS (polycystic ovarian syndrome) Pelvic pain in female Expected: 04/10/2024 (Approximate), Expires: 04/10/2025N[facility] HealthcareComment on above:Expected: 04/10/2024 (Approximate), Expires: 04/10/2025Start: 04-10-2024 End: 84-74-3511Jhagnyl encounter nelrqywnw64/20/2024 9:10 AM EDT Office Visit [facility] [address] [phone] Caesar Broderick, DO [address] [place] [address] ArrivedJORDAN VALLEY [facility] BCP OBComment on above:ArrivedStart: 03-13-2024 End: 96-27-0954Fjmpevv encounter zobciqqvh30/23/2024 11:00 AM EDT Office Visit [facility] [address] [place] [address] James Fraire MD [address] [facility] [place], [place] [facility] CardiologyStart: 82-72-1568Miwma BMI ScreeningAdult BMI ScreeningProMedica Health SystemStart: 77-77-5667Bdaiifc ScreeningTobacco ScreeningProMedica Health SystemStart: 40-38-3332VEsS/Tdap/Td Vaccines (1 - Tdap)DTaP/Tdap/Td Vaccines (1 - Tdap)[facility], IncStflagstaff: 93-98-5253Lcinjdxji for malignant neoplasm of cervixHP/CotestTrinity Health System [facility] Campus: 77-28-7893ECbA,Tdap and Td Vaccines (1 - Tdap)DTaP,Tdap and Td Vaccines (1 - Tdap)ProMCambridge Medical Center SystemStart: 94-14-3590Bvqykldux B Vaccines (1 of 3 - 19+ 3-dose series)Hepatitis B Vaccines (1 of 3 - 19+ 3-dose series)[facility]: 38-19-8448Anvel BMI Follow Up PlanAdult BMI Follow Up PlanProGrand Lake Joint Township District Memorial Hospitaltart: 71-75-5655Qmarhclwn C screeningHepatitis C ScreeningTrinity Health System West Campus: 75-57-6077Npsgthqeo vaccination Varicella Vaccines (1 of 2 - 13+ 2-dose series)[facility] Start: 76-17-9040Vwfephuxfm ScreeningDepression ScreeningKindred Hospital Dayton Start: 79-20-5706FQU Vaccines (1 of 1 - Standard series)MMR Vaccines (1 of 1 - Standard series)[facility]: 74-36-6519OWF screening HIV ScreeningTrinity Health System West Campus: 68-92-8807Ieznl panelLipid PanelTrinity Health System West Campus: 05-88-4534Gvgpsa Adult Physical Yearly Adult PhysicalSelect Medical Specialty [facility], IncBacteria identified in Urine by CultureUrine culture Microbiology Routine Missed menses Ordered: 03/01/2025[facility] HealthcareComment on above:Ordered: 03/01/2025BC W Auto Differential panel - BloodCBC and differential Lab Routine PCOS (polycystic ovarian syndrome) Ordered: 04/10/2024[facility] HealthcareComment on above:Ordered: 04/10/2024BC W Auto Differential panel - BloodCBC and differential Lab Routine Missed menses , unspecified gestational age ([facility]) Ordered: 03/01/2025[facility] HealthcareComment on above:Ordered: 03/01/2025HLAMYDIA TRACHOMATIS (GENITO/STI)CHLAMYDIA TRACHOMATIS (GENITO/STI) Lab Routine Screen for STD (sexually transmitted disease) Ordered: 04/25/2025[facility] HealthcareComment on above:Ordered: 04/25/2025 End: 90-48-1867Ywsgtiyxeh, urine, 24 hourCreatinine, urine, 24 hour Lab Routine Chronic hypertension affecting 20 weeks gestation of 1 Occurrences starting 05/17/2025 until 05/17/2026[facility] SystemComment on above:1 Occurrences starting 05/17/2025 until 05/17/2026ytology Cervical or vaginal smear or scraping studyPap Smear Pathology and Cytology Routine Well woman exam with routine gynecological exam Ordered: 12/10/2024[facility] Healthcare Work Phone: comment on above:Ordered: 12/10/2024DHEA-sulfateDHEA- sulfate Lab Routine PCOS (polycystic ovarian syndrome) Ordered: 04/10/2024[facility] HealthcareComment on above:Ordered: 04/10/2024Follicle stimulating hormone Follicle stimulating hormone Lab Routine PCOS (polycystic ovarian syndrome) Ordered: 04/10/2024[facility] HealthcareComment on above:Ordered: 04/10/2024hCG, quantitative, pregnancyhCG, quantitative, Lab Routine PCOS (polycystic ovarian syndrome) Ordered: 04/10/2024[facility] Healthcare Work Phone: comment on above:Ordered: 04/10/2024Hemoglobin A1c/Hemoglobin.total in BloodHemoglobin A1c Lab Routine Pelvic pain in female Abnormal uterine bleeding (AUB) Ordered: 04/10/2024[facility] HealthcareComment on above:Ordered: 04/10/2024Hemoglobin A1c/Hemoglobin.total in BloodHemoglobin A1c Lab Routine Missed menses , unspecified gestational age ([facility]) Ordered: 03/01/2025[facility] HealthcareComment on above:Ordered: 03/01/2025Hepatitis B virus surface Ag [Presence] in Serum or Plasma by ImmunoassayHepatitis B surface antigen Lab Routine Missed menses , unspecified gestational age ([facility]) Ordered: 03/01/2025[facility] HealthcareComment on above:Ordered: 03/01/2025Hepatitis C virus Ab [Presence] in Serum or Plasma by Immunoassay Hepatitis C antibody Lab Routine Missed menses , unspecified gestational age ([facility]) Ordered: 03/01/2025[facility] HealthcareComment on above: Ordered: 03/01/2025HIV-1/HIV-2 antigen/antibody combination immunoassayHIV-1 and HIV-2 antibodies Lab Routine Missed menses , unspecified gestational age ([facility]) Ordered: 03/01/2025[facility] HealthcareComment on above:Ordered: 03/01/2025Human papilloma virus DNA [Presence] in Unspecified specimen by Probe with amplificationHPV DNA probe, amplified Microbiology Routine Well woman exam with routine gynecological exam Ordered: 12/10/2024[facility] HealthcareComment on above:Ordered: 12/10/2024Luteinizing hormoneLuteinizing hormone Lab Routine PCOS (polycystic ovarian syndrome) Ordered: 04/10/2024[facility] HealthcareComment on above:Ordered: 04/10/2024 End: 75-24-3242Plvwtumvpqq peptide B [Mass/volume] in BloodB-type natriuretic peptide Lab Routine Chronic hypertension affecting 20 weeks gestation of 1 Occurrences starting 05/17/2025 until 05/17/2026[employer] Work Phone: comment on above:1 Occurrences starting 05/17/2025 until 05/17/2026Natriuretic peptide B [Mass/volume] in BloodB-type natriuretic peptide Lab Routine Chronic hypertension affecting 20 weeks gestation of 05/17/2025 9:54 AM [facility] CenterNeisseria gonorrhoeae DNA [Presence] in Unspecified specimen by PEACE with probe detectionNeisseria gonorrhea DNA probe, direct Lab Routine Screen for STD (sexually transmitted disease) Ordered: 04/25/2025[facility] HospitalComment on above:Ordered: 04/25/2025 End: 16-39-4324Tqeqyyr, urine, 24 hourProtein, urine, 24 hour Lab Routine Chronic hypertension affecting 20 weeks gestation of 1 Occurrences starting 05/17/2025 until 05/17/2026[facility] SystemComment on above:1 Occurrences starting 05/17/2025 until 05/17/2026Reagin Ab [Presence] in Serum by RPRRPR Lab Routine Missed menses , unspecified gestational age ([facility]) Ordered: 03/01/2025[facility] HealthcareComment on above:Ordered: 03/01/2025Rubella antibody, IgGRubella antibody, IgG Lab Routine Missed menses , unspecified gestational age ([facility]) Ordered: 03/01/2025[facility] HealthcareComment on above:Ordered: 03/01/2025SURESWAB(R) ADVANCED VAGINITIS PLUS, TMASURESWAB(R) ADVANCED VAGINITIS PLUS, TMA Pathology and Cytology Routine Screen for STD (sexually transmitted disease) Ordered: 04/25/2025[facility] [employer] Work Phone: comment on above:Ordered: 04/25/2025Thyrotropin [Units/volume] in Serum or PlasmaTSH Lab Routine PCOS (polycystic ovarian syndrome) Ordered: 04/10/2024[facility] HealthcareComment on above:Ordered: 04/10/2024 Thyroxine (T4) free [Mass/volume] in Serum or PlasmaT4, free Lab Routine PCOS (polycystic ovarian syndrome) Ordered: 04/10/2024[facility] HealthcareComment on above:Ordered: 04/10/2024 Payers DatePayer CategoryPayerPoly [id number]-pay2023Medicaid [id number] [id number] [id number] 2.840.1.302497.3.57[id number] 2.0.1.918709.3.579.2.753477-44-0266Ecttths [id number] 2.0.1.737883.3.57[id number] 2.840.1.629816.3.57[id number] 2.16.840.1.737356.3.57[id number] 2.840.1.604882.3.57[id number] 2..840.1.829972.3.57[id number] 2.16.840.1.926022.3.57[id number] 2.840.1.356622.3.57[id number] 2.16.840.1.139860.3.57[id number] 2.0.1.469207.3.57[id number] 2.840.1.095074.3.57[id number] 2.0.1.630486.3.57[id number] 2.0.1.468219.3.57[id number] 2.0.1.605343.3.57[id number] 2.0.1.158289.3.57[id number] 2.0.1.754045.3.57[id number] 2.0.1.549168.3.57[id number] 2.0.1.369307.3.57[id number] 2.0.1.79[id number] 2.840.1.526807.3.579.2.531 Social History DateTypeDetailFacilityStart: 02-22-2024 End: 97-43-8957Rut Assigned At [facility] Other Start: 79-97-3510Fey Assigned At BirthFeCommunity Regional Medical CenterTobacco smoking status NHISTobacco smoking consumption unknownSalem Memorial District HospitalStart: 59-10-2602Iya assigned at birthNot on fileProOhiohealth Hardin Memorial Hospital SystemStart: 10-09-2022 End: 55-36-2823Llniema smoking status NHISNever smoked tobaccoCincinnati Shriners Hospital SystemStart: 10-09-2022 End: 55-86-2859Cjevcut use and exposureSmokeless tobacco non-userCincinnati Shriners Hospital SystemStart: 02-22-2024 End: 46-30-5383Zvfkmdkuv beverage intakeEx-drinker (finding)[facility] SystemStart: 02-22-2024 End: 11-51-7485Jqkrzua of Social functionProOhiohealth Hardin Memorial Hospital SystemStart: 95-40-8890Vvfgwm the past 12 months we worried whether our food would run out before we got money to buy more.Never TrueCincinnati Shriners Hospital SystemStart: 09-30-2022 End: 42-55-0325ZfpGizapw (finding)[facility] Hamiltontart: 46-01-6410Lntnesoto beverage intakeLifetime non-drinker (finding)[facility] Work Phone: Start: 12-24-2024 End: 78-34-8418Bumvqvks to SARS-CoV-2 (event)Not sureUnMercy Health St. Charles HospitalStart: 55-88-0918FepimiolaMXBN Healthcare Functional Status TjxjWayjwmscivEskvyuPnbzodki31-43-3370Snxryko Health Questionnaire 2 item (PHQ- 2) [Reported][facility] Work Phone: [phone] [phone]uqzli - suicide severity rating scale screener - recent [C-SSRS][facility] Work Phone: Clinical Notes 10-11-2022 to 06-18-2025 Note Date & FxznHpbdCiknkuiw15-27-0340 History of Present illness Narrative* Yordy Cruz MD - 06/18/2025 2:00 PM EDT REASON FOR CONSULTATION: CHTN HISTORY OF PRESENT ILLNESS: Ellen Ramires is a pleasant 35 y.o. at [...] free DNA Carrier screening: Baby Boy: Peewee Alvesmamadou Barraza I have reviewed the pertinent available [...] eruptions on fingers Gravid abdomen OVERALL ASSESSMENT -Ellen Ramires is a pleasant 35 y.o. at [...] ultrasound, attempt completion in 4 weeks through [facility] serial growth ultrasounds every 4 weeks [...] patient is in complete care of her residential solar sales consultant. Patient does have ultrasound and office visit scheduled with us. Thank you for allowing me to participate in the care of Ellen Ramires. If there any questions please do not hesitate to contact us. Yordy Cruz MD Maternal- Medicine [facility] [address] [facility] 1st Floor [place] [id number] This document was created with Gen[employer] technology. Though I make every effort to review the dictation as it is transcribed, on occasion the spoken word can be misinterpreted by the technology leading to inappropriate words, phrases, or sentences. This note is addressed to the requesting provider as a consultation for clinical guidance. Specificmedical abbreviations are occasionally used and those are generally approved by the [place]?Board of?Obstetrics and?Gynecology?as well as?Rama tapia abbreviations. The above plan of care was based solely on the diagnoses for which a consultation was requested. ?More frequent testing may be indicated based on her other medical/obstetrical conditions. The management of other or medical conditions is beyond the scope of requested consultation and will c ontinue to be followed by the primary residential solar sales consultant or primary care provider. Note to patient: [...] opinion of the practitioner. documented in this encounterKindred Hospital Dayton10-15-2025 History of Present illness Narrative* Rody Qiu, JEM - 06/05/2025 8:50 AM EDT Reason for Appointment: Patient ID: Ellen Ramires is a 35 y.o. female who presents for Routine Visit Patient presents today for Return OB appointment. MEDICATIONS Current Outpatient Medications Medication Instructions NIFEdipine XL (PROCARDIA XL) 60 mg, Oral, Daily, Take 1 tablet in the am. Do not crush, chew, or split. Procardia XL 30 mg, Daily sertraline (ZOLOFT) 50 mg, Every 24 hours ALLERGIES Allergies[1] PROBLEMS Active Ambulatory Problems Diagnosis Date Noted Fallopian tube disorder 07/30/2024 PCOS (polycystic ovarian syndrome) 07/30/2024 induced hypertension, antepartum ([facility]) 04/25/2025 Vitamin D deficiency 05/23/2025 H/O pre-eclampsia in prior , currently ([facility]) 05/23/2025 Resolved Ambulatory Problems Diagnosis Date Noted No Resolved Ambulatory Problems No Additional Past Medical History HISTORY PAST MEDICAL HISTORY SOCIAL HISTORY Medical History[2] Social History Tobacco Use Smoking status: Not on file Smokeless tobacco: Not on file Substance Use Topics Alcohol use: Not on file Drug use: Not on file FAMILY HISTORY Family History[3] SURGICAL HISTORY Surgical History[4] REVIEW OF SYSTEMS Review of Systems: Review [...] nursing note reviewed. Exam conducted with a sand mill operator facing sand present. Vitals: Estimated body mass index is 42.99 kg/m as calculated from the following: Height as of 06/11/24: 5' 8 . Weight as of this encounter: 282 lb 12 oz. BP: 130/76 Patient's last menstrual period was 12/26/2024. ASSESSMENT & PLAN ICD-10-CM 1. Second trimester ([facility]) Z34.92 POCT urinalysis dipstick manually resulted 2. 23 weeks gestation of ([facility]) Z3A.23 Return OB: Patient presents today for a routine obstetrics appointment. Patient is currently 23w0d . Patient states she is doing well but has complaints of being tired due to current . Patient has verbalizes frequent movement. labor precautions was discussed/given and patient was instructed to perform kick counts three times a day. Orders Placed This Encounter Procedures POCT urinalysis dipstick manually resulted Follow Up: Patient is to return to office in 2 week for routine OB appointment. Documented by Rody Qiu NP on behalf of: Rody Qiu NP [1] No Known Allergies [2] No past medical history on file. [3] Family History Problem Relation Name Age of Onset Other (htn) Mother Other (HTN) Father Diabetes Father Other (epilepsy) Brother Pancreatic cancer Maternal Grandfather [4] Past Surgical History: Procedure Laterality Date LAPAROSCOPY DIAGNOSTIC / BIOPSY / ASPIRATION / LYSIS 06/01/2024 WISDOM TOOTH EXTRACTION documented in this encounterSalem Memorial District HospitalPkiarvhvik35-59-9701 History of Present illness Narrative* Rody Qiu NP - 05/30/2025 3:20 PM EDT Reason for Appointment: Patient ID: Ellen Ramires is a 35 y.o. female who presents for Routine Visit Patient presents today for Return OB appointment. MEDICATIONS Current Outpatient Medications Medication Instructions Procardia XL 30 mg, Daily sertraline (ZOLOFT) 50 mg, Every 24 hours ALLERGIES No Known Allergies PROBLEMS Active Ambulatory Problems Diagnosis Date Noted Fallopian tube disorder 07/30/2024 PCOS (polycystic ovarian syndrome) 07/30/2024 induced hypertension, antepartum ([facility]) 04/25/2025 Vitamin D deficiency 05/23/2025 H/O pre-eclampsia in prior , currently ([facility] 05/23/2025 Resolved Ambulatory Problems Diagnosis Date Noted [...] nursing note reviewed. Exam conducted with a sand mill operator facing sand present. Vitals: Estimated body mass index is 43.03 kg/m as calculated from the following: Height as of 06/11/24: 5' 8 . Weight as of 05/23/25: 283 lb. BP: Patient's last menstrual period was 12/26/2024. ASSESSMENT & PLAN ICD-10-CM 1. Second trimester ([facility]) Z34.92 2. 22 weeks gestation of ([facility]) Z3A.22 POCT urinalysis dipstick manually resulted [...] appointment and blood pressure recheck. Documented by Rody Qiu NP on behalf of: Rody Qiu NP documented in this encounterSalem Memorial District [id number] History of Present illness Narrative* Rody Qiu NP - 05/23/2025 2:30 PM EDT Reason for Appointment: Patient ID: Ellen Ramires is a 35 y.o. female who presents for Routine Visit Patient presents today for Return OB appointment. MEDICATIONS Current Outpatient Medications Medication Instructions Procardia XL 30 mg, Daily sertraline (ZOLOFT) 50 mg, Every 24 hours ALLERGIES No Known Allergies PROBLEMS Active Ambulatory Problems Diagnosis Date Noted Fallopian tube disorder 07/30/2024 PCOS (polycystic ovarian syndrome) 07/30/2024 induced hypertension, antepartum ([facility]) 04/25/2025 Vitamin D deficiency 05/23/2025 H/O pre-eclampsia in prior , currently ([facility]) 05/23/2025 Resolved Ambulatory Problems Diagnosis Date [...] nursing note reviewed. Exam conducted with a sand mill operator facing sand present. Vitals: Estimated body mass index is 43.03 kg/m as calculated from the following: Height as of 06/11/24: 5' 8 . Weight as of this encounter: 283 lb. BP: 142/82 Patient's last menstrual period was 12/26/2024. ASSESSMENT & PLAN ICD-10-CM 1. Second trimester ([facility]) Z34.92 POCT urinalysis dipstick manually resulted 2. 21 weeks gestation of ([facility]) Z3A.21 3. induced hypertension, antepartum ([facility]) O13.9 4. Vitamin D deficiency E55.9 5. H/O pre-eclampsia in prior , currently ([facility]) O09.299 Return OB: Patient presents today for a routine obstetrics appointment. Patient is currently 21w1d . Patient states she is doing well but has complaints of being tired due to current . Patient has verbalizes frequent movement. labor precautions was discussed/given and patient was instructed to perform kick counts three times a day. Patient does have elevated B/P 142/82 at today's visit. Pt is currently on 30 mg of Procardia. And pt stated she is continually taking the medication. Pt states she is a little concerned that her B/Pis still elevated. I would like to continue to monitor Ellen's Blood Pressure and she is scheduled for follow up Blood Pressure check next week. She reports no complaints of headaches, vision changes and edema. She has been evaluated by [facility] andin the process of obtaining B/P monitoring through durable medical equipment and [facility]. Orders Placed This Encounter Procedures POCT urinalysis dipstick manually resulted Follow Up: Patient is to return to office in 3 week for routine OB appointment. Documented by Melanie Almaraz MA on behalf of: Rody Qiu NP documented in this encounterSalem Memorial District HospitalWqjgxssxuw75-71-4509 History of Present illness Narrative* Bethany Lundy LPN - 05/17/2025 9:00 AM [...] No Have you been seen here at [facility] in a previous ? No Recent ER visits or hospitalizations? Yes, for slicing thumb on mandolin Bring blood sugar log or meter with you today? (Please bring them with you for every visit at [facility]) N/A Flu vaccine (Jun-October)? N/A Any concerns that you would like me to mention to the provider today? Hands get itchy with white spots * Yordy Cruz MD - 05/17/2025 9:00 AM EDT Images from the original note were not included. REASON FOR CONSULTATION: CHTN HISTORY OF PRESENT ILLNESS: Ellen Ramires is a pleasant 35 y.o. at [...] eruptions on fingers Gravid abdomen OVERALL ASSESSMENT -Ellen Ramires is a pleasant 35 y.o. at [...] recommended threshold of 160/110. Referenc e: PMID: [id number], 2021. Blood pressures do increase as progresses [...] preeclampsia prevention as is recommended by the [place] [employer] Gynecology Committee Opinion No. 743. [...] patient is in complete care of her residential solar sales consultant. Patient does have ultrasound and office visit scheduled with us. Thank you for allowing me to participate in the care of Ellen Ramires. If there any questions please do not hesitate to contact us. Yordy Cruz MD Maternal- Medicine [facility] [address] [facility] [address] [place] [address] This document was created with Genmab technology. Though I make every effort to review the dictation as it is transcribed, on occasion the spoken word can be misinterpreted by the technology leading to inappropriate words, phrases, or sentences. This note is addressed to the requesting provider as a consultation for clinical guidance. Specificmedical abbreviations are occasionally used and those are generally approved by the [place]?Board of?Obstetrics and?Gynecology?as well as?Rama tapia abbreviations. The above plan of care was based solely on the diagnoses for which a consultation was requested. ?More frequent testing may be indicated based on her other medical/obstetrical conditions. The management of other or medical conditions is beyond the scope of requested consultation and will c ontinue to be followed by the primary residential solar sales consultant or primary care provider. Note to patient: [...] Blood drawn for cell-free DNA testing per [facility] phlebotomy. Patient tolerated well. documented in this encounterOhioHealth Dublin Methodist HospitalCentral [facility]lip [facility]09-04-[facility] History of Present illness Narrative* Rody Uyen, COLLAR POINTER - 04/25/2025 11:10 AM EDT Reason for Appointment: Patient ID: Ellen Ramires is a 35 y.o. female who [...] (polycystic ovarian syndrome) 07/30/2024 induced hypertension, antepartum ([facility]) 04/25/2025 Resolved Ambulatory Problems Diagnosis Date [...] nursing note reviewed. Exam conducted with a sand mill operator facing sand present. Vitals: Estimated body mass index is 42.88 kg/m as calculated from the following: Height as of 06/11/24: 5' 8 . Weight as of this encounter: 282 lb. BP: 138/82 Patient's last menstrual period was 12/26/2024. ASSESSMENT & PLAN ICD-10-CM 1. Screening, , for anatomic survey ([facility]) Z36.89 CANCELED: US OB 14+ weeks anatomy scan 2. Second trimester ([facility]) Z34.92 POCT urinalysis dipstick manually resulted 3. 17 weeks gestation of ([facility]) Z3A.17 4. Screen for STD (sexually transmitted disease) Z11.3 SURESWAB(R) ADVANCED VAGINITIS PLUS, TMA CHLAMYDIA TRACHOMATIS (GENITO/STI) Neisseria gonorrhea DNA probe, direct 5. Need for maternal serum alpha-protein (MSAFP) screening ([facility]) Z36.1 Alpha fetoprotein, maternal Alpha fetoprotein, maternal 6. induced hypertension, antepartum ([facility]) O13.9 7. Vitamin D deficiency E55.9 Return [...] of: Caesar Broderick DO documented in this encounterSalem Memorial District HospitalIdnihqvoag57-93-6942 History of Present illness Narrative* Karoline Casillas, PATCH DRILLER - 04/11/2025 10:30 AM EDT Reason for Appointment: Patient ID: Ellen Ramires is a 35 y.o. female who [...] nursing note reviewed. Exam conducted with a sand mill operator facing sand present. Vitals: Estimated body mass index is 42.63 kg/m as calculated from the following: Height as of 06/11/24: 5' 8 . Weight as of this encounter: 280 lb 6.4 oz. BP: 140/86 Patient's last menstrual period was 12/26/2024. ASSESSMENT & PLAN ICD-10-CM 1. 15 weeks gestation of ([facility]) Z3A.15 POCT urinalysis dipstick manually resulted 2. Second trimester ([facility]) Z34.92 POCT urinalysis dipstick manually resulted 3. Acute nonintractable headache, unspecified headache type R51.9 4. BP check Z01.30 Patient presents today for a routine obstetrics appointment. Patient is currently 15w1d with a Estimated Date of Delivery: 10/02/25. Patient is having persistent elevated HTN. Discussed patient being referred to [facility] for management and recommendations for Gestational HTN. Patient is agreeable with referral. Patient to be started on Labetalol 200mg BID. Patient given labs and 24 hour urine to have obtained for baseline testing. Patient aware that once lab results are obtained then referral will be completed, so then all results can be sent to [facility] at onetime. Patient to return to clinic in 4 weeks for routine OB appointment. Patient to reach out to office with any concerns/questions. Documented by Karoline Casillas LPN on behalf of: Caesar Broderick DO documented in this encounterSalem Memorial District [id number] History of Present illness Narrative* Karoline Casillas LPN - 03/28/2025 11:40 AM EDT Reason for Appointment: Patient ID: Ellen Ramires is a 35 y.o. female who [...] nursing note reviewed. Exam conducted with a sand mill operator facing sand present. Vitals: Estimated body mass index is 42.29 kg/m as calculated from the following: Height as of 06/11/24: 5' 8 . Weight as of this encounter: 278 lb 1.9 oz. BP: 138/80 Patient's last menstrual period was 12/26/2024. ASSESSMENT & PLAN ICD-10-CM 1. 13 weeks gestation of ([facility]) Z3A.13 POCT urinalysis dipstick manually resulted 2. Second trimester ([facility]) Z34.92 POCT urinalysis dipstick manually resulted magnesium [...] or undercooked meat, and stay away from [facility]. Patient has been consulted regarding any further do's and don'tsof . Patient voiced understanding and all questions and concerns were answered. Patient complaints of headaches, magnesium oxide sent to pharmacy for patient to start taking daily. Orders Placed This Encounter Procedures POCT urinalysis dipstick manually resulted Follow Up: Patient is to return in 4 weeks for routine OB appointment. Documented by Karoline Casillas LPN on behalf of: Caesar Broderick DO documented in this encounterSalem Memorial District HospitalTwcvnlxpkh02-89-3435 History of Present illness Narrative* Melanie Almaraz MA - 03/01/2025 9:30 AM EDT Reason for Appointment: Patient ID: Ellen Ramires is a 34 y.o. female who [...] medication list which includes the following prescription(s): d- 400, omeprazole, and sertraline. Medical History: Active Ambulatory [...] dipstick manually resulted , unspecified gestational age ([facility]) - Type and screen; Future - ABO/Rh; Future - CBC and differential - Hemoglobin A1c - RPR - Rubella antibody, IgG - Hepatitis B surface antigen - Hepatitis C antibody - HIV-1 and HIV-2 antibodies - Rapid drug screen, urine; Future Encounter for supervision of normal first in first trimester ([facility]) - Rapid drug screen, urine; Future 9 weeks gestation of ([facility]) Nurse Note: Pt uncertain of doing the [place] Billion to one. Advised pt if she does to make sure both labs and [place] is done at the same time. PVU. Pt did state she had a Vit. D deficiency and has a h/o high blood pressure with G1Meghan Uriarte Tweetflow advised patient showed in dating [place] today [...] drink 6-8 glasses of water a day, eatno raw or undercooked meat, and stay away from [facility]. Patient has also been advised to not change litter boxes and eat 6 small meals a day. Patient has been consulted regarding the do's and don'ts ofpregnancy. Patient was given labs and all questions [...] by: Melanie Almaraz MA documented in this encounterSalem Memorial District HospitalFsfpuicbgj38-12-4601 History of Present illness Narrative* Robbie Lopze MD - 01/03/2025 10:45 AM EDT Images from the original note were not included. Visit Type: In Person reviewed, Authorization obtained to share with partner. NEW FERTILITY PATIENT VISIT Referred by: Dr. Caesar Broderick Accompanied today by: Singh Ramires - Ellen Ramires is a 34 y.o. 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 Yes How many times have you been ? 1 Have you ever had a miscarriage? No How many times have you had a miscarriage? 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 Tadalafil - 10mg as needed Injuries: No STD: No Please select all that are applicable: SA: Yes SA Results: Yes -Done at [facility] 2023- reports was told normal, no [...] including hormonal, egg quality issues, structural problems suchas endometriosis, adhesions, or tubal problems, uterine factors such as polyps or fibroids, and sperm issues. Reviewed evaluation of such as well. We discussed various methods for achieving pregnancyin some detail including, ovulation induction, insemination, superovulation [...] family history on file. 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 Partner SA: Normal COUNSELING We discussed causes of infertility including hormonal, egg quality issues, structural problems suchas endometriosis, adhesions, or tubal problems, uterine factors such as polyps or fibroids, and sperm issues. Reviewed evaluation of such as well. We discussed various methods for achieving pregnancyin some detail including, ovulation induction, insemination, superovulation [...] Lopez 01/03/2025 11:05 AM documented in this [facility] Work Phone: [phone]) 107-458704-29-2025 History of Present illness Narrative* Kitaesther Griggs, SHAD - 12/18/2024 1:30 PM EDT Reason for Appointment: Patient ID: Ellen Ramires is a 34 y.o. female who [...] nursing note reviewed. Exam conducted with a sand mill operator facing sand present. Vitals: Estimated body mass index is [...] after allowing sufficient time to take affect. orange picking supervisor and scissors used to remove affected area. Placed in formalin and sent to pathology. Post-procedure instructions given. Follow Up: as needed Documented by Kita Griggs LPN on behalf of: Caesar Broderick DO documented in this encounterSalem Memorial District [id number] History of Present illness Narrative* Melanie Almaraz MA - 12/10/2024 2:40 PM EDT Reason for Appointment: Patient ID: Ellen Ramires is a 34 y.o. female who [...] nursing note reviewed. Exam conducted with a sand mill operator facing sand present. Vitals: Estimated body mass index is [...] of: Caesar Broderick DO documented in this encounterSalem Memorial District [id number] History of Present illness Narrative* Karoline Casillas LPN - 11/12/2024 2:10 PM EDT Reason for Appointment: Patient ID: Ellen Ramires is a 34 y.o. female who [...] of: Caesar Broderick DO documented in this encounterSalem Memorial District [id number] History of Present illness Narrative* Kita Griggs LPN - 07/23/2024 1:00 PM EST Reason for Appointment: Patient ID: Ellen Ramires is a 34 y.o. female who [...] nursing note reviewed. Exam conducted with a sand mill operator facing sand present. Vitals: Estimated body mass index is [...] of: Caesar Broderick DO documented in this encounterSalem Memorial District [id number] History of Present illness Narrative* Karoline Casillas LPN - 06/11/2024 2:20 PM EDT Reason for Appointment: Patient ID: Ellen Ramires is a 34 y.o. female who [...] nursing note reviewed. Exam conducted with a sand mill operator facing sand present. Vitals: Estimated body mass index is [...] 21 of cycle patient is to have progesteronelabs drawn. Patient was advised to have intercourse [...] of: Caesar Broderick DO documented in this encounterSalem Memorial District [id number] History of Present illness Narrative* Whitney Mert - 05/03/2024 11:40 AM EDT Reason for Appointment: Patient ID: Ellen Ramires is a 34 y.o. female who presents for Pre-op Visit Patient presents today for Pre Op appointment. Patient is scheduled to undergo Diagnostic Laparoscopy, possible FLAKITO, possible FOE, possible BSO, possible Chromopertubation on 06/01/[address] Broderick at [facility]. MEDICATIONS Current Outpatient Medications Medication [...] nursing note reviewed. Exam conducted with a sand mill operator facing sand present. Vitals: There is no height or [...] possible FLAKITO, possible FOE, possible BSO, possible C hromopertubation on 06/01/2024. Surgical consents were signed, mmc was reviewed, and patient is to proceed to [facility] OR. Follow Up: Patient is to follow up between 1-2 weeks post operative to assess proper healing and recovery fromprocedure. Documented by Karoline Casillas LPN on behalf of: Caesar Broderick DO documented in this encounterSalem Memorial District [id number] History of Present illness Narrative* Kita Griggs, PATCH DRILLER - 04/10/2024 9:10 AM EDT Reason for Appointment: Patient ID: Ellen Ramires is a 34 y.o. female who [...] nursing note reviewed. Exam conducted with a sand mill operator facing sand present. Vitals: There is no height or [...] order and ultrasound to have obtained. Patient wasinstructed to call the office once menstrual cycle [...] has not conceived by then, we will p erform HSG. Discussed semen analysis. Pt given semen [...] of: Caesar Broderick DO documented in this encounterSalem Memorial District [id number] History of Present illness Narrative* James Fraire MD - 03/13/2024 11:00 AM EDT Ellen Ramires Date of visit: 03/13/2024 Date of [...] Chief Complaint Patient presents with New Patient COLLAR POINTER PALPITATIONS SCHED W/ PT LABS HM AT [facility] LABS AT PCP History of Present Illness Patient had episode of palpitations related to which sounds like more of a phonetic. Of events where she was traveling and was under a bit of stress. She had no real chest pain no decline in functionactually she is done really well she is [...] just wait at this time. If she getsa lot of palpitations again we can always send a monitor to her house TODAYS ORDERS No orders of the defined types were placed in this encounter. FOLLOW UP No follow-ups on file. PCP: MELISSA Noyola Referring Physician: Sabiha Aviles APRN-THEA [address] [place] [address] documented in this [facility]07-22-2024 Miscellaneous Notes* Telephone Encounter - Sheyla Powell CMA - 03/12/2024 2:47 PM EDT Left message for patient to remind them to bring their most current medication list with them to their appointment. documented in this [facility]07-22-2024 Telephone encounter Note* Telephone Encounter - Sheyla Powell CMA - 03/12/2024 2:47 PM EDT Left message for patient to remind them to bring their most current medication list with them to their appointment. [facility] CenterClif[facility] [id number] Evaluation note* Encounter Date Diagnosis Assessment Notes Treatment Notes Treatment Clinical Notes Sep, Contact with and (matt spected) exposure to other viral communicable diseases (ICD-10 - Z20.828) Sep,OVID-19 (ICD-10 - U07.1)Discharge Instructions for COVID-19 (Suspected or Confirmed ) material was printed Drink plenty fluids, get plenty of rest. Take Tylenol or Motrin as needed for aches pains or fevers. Follow-up with your family physician if no improvement in 2 to 3 days. You must quarantine for 5 days after the onset of your symptoms of COVID [employer] Other Chief complaint+Reason for visit Narrative* Chief Complaint sinus pressure, coug h Reason for Visit Contact with and (matt spected) exposure to covid-19 Sore throat Sinusitis [facility] Work Phone: Evaluation note* Diagnosis Onset Date Resolution Status Contact with and (suspected) exposure to covid-19 acuteSore throatacuteSinusitisnoneactive [facility] Work Phone: Evaluation note* Diagnosis Postoperative [...] palpitations- Primary Palpitations documented in this encounter [facility] Diagnosis Encounter for fertility planning Acute cystitis without hematuria PCOS (polycystic ovarian syndrome) Polycystic ovaries Fallopian tube disorder Unspecified noninflammatory disorder of ovary, fallopian tube, and broad ligament documented in this encounter [facility] HealthcareEvaluation note* Diagnosis Well woman exam with routine gynecological exam Routine gynecological examination documented in this encounter [facility] HealthcareEvaluation note* Diagnosis Skin mole documented in this encounter [facility] HealthcareEvaluation noteNo assessment information availableCorey Hospital Work Phone: Evaluation note* Diagnosis Encounter for preprocedural laboratory examination- Primary Abnormal uterine bleeding Unspecified disorder of menstruation and other abnormal bleeding from female genital tract documented in this encounter [facility] Work Phone: Evaluation note* Diagnosis Amenorrhea Absence of menstruation Missed menses , unspecified gestational age ([facility]) Encounter for supervision of normal first in first trimester ([facility]) 9 weeks gestation of ([facility]) Vitamin D deficiency History of hypertension Personal history of other diseases of circulatory system documented in this encounter [facility] HealthcareEvaluation note* Diagnosis 13 weeks gestation of ([facility]) Second trimester ([facility]) state, incidental Acute nonintractable headache, unspecified headache type documented in this encounter [facility] HealthcareEvaluation note* Diagnosis 15 weeks gestation of ([facility]) Second trimester ([facility]) state, incidental Acute nonintractable headache, unspecified headache type BP check Screening for hypertension Gestational hypertension, antepartum ([facility]) induced hypertension, antepartum ([facility]) Transient hypertension of , antepartum documented in this encounter [facility] HealthcareEvaluation note* Diagnosis Hypertension affecting in second trimester- Primary [facility] this [facility]* Diagnosis Screening, , for anatomic survey ([facility]) Encounter for anatomic survey Second trimester ([facility]) state, incidental 17 weeks gestation of ([facility]) Screen for STD (sexually transmitted disease) Screening examination for venereal disease Need for maternal serum alpha-protein (MSAFP) screening ([facility]) induced hypertension, antepartum ([facility]) Transient hypertension of , antepartum Vitamin D deficiency documented in this encounter [facility] HealthcareEvaluation note* Diagnosis Chronic 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 Severe obesity due to excess calories affecting , antepartum (CMS-HCC) 20 weeks gestation of [facility] 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 Chronic hypertension affecting Severe obesity due to excess calories affecting , antepartum (CMS-HCC) Hypertension affecting in second trimester documented [facility] 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 Chronic hypertension affecting Severe obesity due to excess calories affecting , antepartum (CMS-HCC) Hypertension affecting in second trimester documented [facility] Diagnosis Chronic hypertension affecting (HHS-HCC)- Primary Second trimester (HHS-HCC) state, incidental 22 weeks gestation of (HHS-HCC) documented in this encounter [facility]* Diagnosis Second trimester (HHS-HCC) state, incidental 21 weeks gestation of (HHS-HCC) induced hypertension, antepartum (HHS-HCC) Transient hypertension of , antepartum Vitamin D deficiency H/O pre-eclampsia in prior , currently (HHS-HCC) documented in this encounter [facility]* Diagnosis Second trimester (HHS-HCC) state, incidental 23 weeks gestation of (HHS-HCC) documented in this encounter [facility]* Diagnosis Chronic hypertension affecting - Primary 20 weeks gestation of Anxiety disorder affecting , 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 Severe obesity due to excess calories affecting , antepartum (CMS-HCC) documented in this encounter [facility] SystemInstructionsNot [...] this encounter [facility] Family History Relationship Condition Age at Onset Recorded Date/T ellis father Hypertension Unknown Diabetes mellitusUnknownNot SpecifiedHypertensionUnknown Relationship Condition Age at Onset Recorded Date/T ellis father Hypertension Unknown Diabetes mellitusUnknownmotherHypertensionUnknown Advance Directives Advance Directive Response Recorded Date/ Time Advance Directives No November 23 12:20pm Summary Purpose Additional Source Comments REASON FOR VISIT (unrecogniz ed section and content) ReasonCommentsPost-op VisitPt present today for post operative visit. Pt had a Dx lap on 06/01/2024.ReasonCommentsDiscuss endocrin referralReasonCommentsPre-op VisitReasonCommentsInfertilityReasonCommentsNew PatientNP PALPITATIONS SCHED W/ [facility] AT PCPSpecialtyDiagnoses / ProceduresReferred By Contact Referred To ContactCardiology Diagnoses Heart palpitations Sabiha Aviles, METAL FRAMER-RECREATION PROGRAM SPECIALIST [address] [place] [address] [facility] [address] [address] Referral IDStatusReasonStart DateExpiration DateVisits RequestedVisits [id number] Review Specialty Services Required /[id number] ExamReason CommentsMole removalReasonCommentsInfertilityReasonCommentsAmenorrheaReason CommentsRoutine VisitReasonCommentsgHTNPCOS Care Teams (unrecognized sec tion and content) Team Status: Active Member Role Status Dates PHYSICIAN NO FAMILY Primary Care Provider Active Team Status: Inactive Member Role Status Dates PHYSICIAN NO FAMILY Primary Care Provider Active Start: November 24, 2023 End: November 23cosmo Singh NP-CAttending ProviderActiveStart: November 24, 2023 End: November 24, 2023Team MemberRelationshipSpecialtyStart DateEnd Date Judy Caal PCP - [facility] 02/20/24Team MemberRelationshipSpecialtyStart DateEnd Date Judy Caal PCP - [facility]7/09/14Team MemberRelationshipSpecialtyStart DateEnd Date Kromer, Judy PCP - [facility]PC7Team MemberRelationshipSpecialtyStart DateEnd Date Kromer, Judy PCP - [facility]7Team MemberRelationshipSpecialtyStart DateEnd Date Kromer, Judy PCP - [facility]7Team MemberRelationshipSpecialtyStart DateEnd Date Kromer, Judy PCP - [facility]7Team MemberRelationshipSpecialtyStart DateEnd Date Kromer, Judy PCP - [facility]7Team MemberRelationshipSpecialtyStart DateEnd Date [facility] [address] [place], [place] PCP - GeneralFamily Medicine11/12/22Team MemberRelationshipSpecialtyStart DateEnd Date [facility] [address] [place], [place] PCP - GeneralFamily Medicine11/12/22Team MemberRelationshipSpecialtyStart DateEnd Date [facility] [address] [place], [place] PCP - GeneralFamily Medicine11/12/22Team MemberRelationshipSpecialtyStart DateEnd Date Kromer, Judy PCP - [facility]7Team MemberRelationshipSpecialtyStart DateEnd Date Kromer, Judy PCP - [facility]7/09/14Team MemberRelationshipSpecialtyStart DateEnd Date Kromer, Judy PCP - [facility]7Team MemberRelationshipSpecialtyStart DateEnd Date Kromer, Judy PCP - [facility]02/20/24 Team Status: Inactive Member Role Status Dates Caesar Broderick DO Attending Provider Active Start : December 18, 2024 End: December 18, 2024Team MemberRelationshipSpecialtyStart DateEnd Date June Trinidad LPN Licensed Practical NurseReproductive Endocrinology and Infertility01/01/25Team MemberRelationshipSpecialtyStart DateEnd Date Kromer, Judy PCP - [facility]02/20/24Team MemberRelationshipSpecialtyStart DateEnd Date Kromer, Judy PCP - [facility]02/20/24Team MemberRelationshipSpecialtyStart DateEnd Date Kromer, Judy PCP - [facility]02/20/24Team MemberRelationshipSpecialtyStart DateEnd Date Kromer, Judy PCP - [facility]02/20/24Team MemberRelationshipSpecialtyStart DateEnd Date [facility] [address] [place] PCP - GeneralFamily Medicine11/03/24Team MemberRelationshipSpecialtyStart DateEnd Date [facility] [address] [place] PCP - GeneralFamily Medicine11/03/24Team MemberRelationshipSpecialtyStart DateEnd Date Kromer, Judy PCP - [facility]02/20/24Team MemberRelationshipSpecialtyStart DateEnd Date [facility] [address] [place] PCP - Generalmily Medicine11/03/24Team MemberRelationshipSpecialtyStart DateEnd Date [facility] [address] [place] PCP - GeneralFamily Medicine11/03/24Team MemberRelationshipSpecialtyStart DateEnd Date [facility] [address] [place] PCP - Generalmily Medicine11/03/24Team MemberRelationshipSpecialtyStart DateEnd Date Judy Caal PCP - [facility]02/20/24Team MemberRelationshipSpecialtyStart DateEnd Date Afua, Judy PCP - [facility]02/20/24Team MemberRelationshipSpecialtyStart DateEnd Date [facility] [address] [place] PCP - [facility]11/03/24 Goals (unrecognized section and content) Goals may be documented in a n alternate section INFORMATION SOURCE (unrecogn ized section and content) DATE CREATED AUTHOR 12/29/2024 [facility] DATE CREATED AUTHOR AUTHOR'S ORGANIZ ATION 01/07/2025 [facility] DATE CREATED AUTHOR AUTHOR'S ORGANIZ ATION 06/06/2025 [facility] DATE CREATED AUTHOR AUTHOR'S ORGANIZ ATION 06/19/2025 [facility] DATE CREATED AUTHOR AUTHOR'S ORGANIZ ATION 06/20/2025 [facility] FOR RECORDS PERTAINING TO PATIENTS WHO [...] BE BASED ON THE PRIMARY CLINICAL RECORDS. [facility] [facility]. provides no warranty or guarantee of the accuracy or completeness of information in this document.
--- OUTSIDE RECORDS SUMMARY | 2025-06-20 21:06 | XMS_ITS | Patient Health Record ---
Author Organization [facility] vices Address [address] [place], [place] [address] Care Team Providers Care Seat Pack Inspector Name Role Phone Sabiha Aviles Primary Care Provider Merary Espino Unavailable [phone] Noelle Chris Unavailable [phone] Judy Yepez Unavailable [phone] Allergies No Known Allergies Results Component Value Reference Range Notes Creatinine 24 Hour Urine Reviewed date:05/26/2025 02:26:35 PM Interpretation: Performing Lab: Notes/Report: , [facility] Creatinine Urine Random 60.41 20.00-300.00 mg/d L Total Volume 24 Hour Rqfqc3239Gjetozulhi 24 Hour Yevva0581.38700.00-1800.00 mg/24 hrPerforming Lab:see noteML - [facility] LBTotal Protein 24 Hour Urine Reviewed date:05/26/2025 02:26:35 PM Interpretation: Performing Lab: Notes/Report: [facility] ,Total Protein Urine Random<6.0<=11.9 mg/dLPerforming Lab:see noteML - [facility] LBAFP, Serum, Open Spina Bifida Reviewed date:05/26/2025 02:17:58 PM Interpretation: Performing Lab: Notes/Report: , [facility]/ N N N N N 282 1 N 9 2 [id number] LMP N NResultsReport.Test Results:*Screen Negative*.Gest. Age on Collection Date21.1. weeksGestat. Age Based OnLMP. Recalculations are not recommended when gestational dating by LMP and ultrasound are within 10 days. Maternal Age At EDD33.5. yrRaceCaucasian.Cpbldf752. lbsInsulin Dep DiabetesNo. Multiple GestationNo.AFP Value38.2. ng/mLAFP MoM0.85.OSBR Risk 1 [id number]. InterpretationComment. Interpretation: Screen Negative This result is screen [...] Customer Services to discuss available options. The [employer] recommends amniocentesis be offered to women age 35 and older. Comment:Comment. Gema Ortez, Ph.D., [facility] Director References: Available Upon Request. Multiples Of Median Cutoffs For AFP Elevations Kumar 2.5 Black 2.8 IDD 2.0 Twins 4.5 Abbreviation Definitions IDD - Insulin Dep Diabetes OSBR - Open Spina Bifida Risk For further inquiries contact [employer] [facility] at [phone]. This test was developed and its performance characteristics determined by [employer]. It has not been cleared or approved by the Food and Drug Administration. Performed at: [facility] [employer] [address] [id number] Retail Product Demo Specialist: Jesus Saleh [facility], Phone: [phone] Performing Lab:see noteLC - [facility] LBUA Culture/Micro if Indicated Reviewed date:05/30/2025 09:54:53 AM Interpretation: Performing Lab: Notes/Report: , [facility] UrineLT YELLOWYELLOWClarity UrineCLEARCLEARSpecific [place] Urine<=1.0051.005-1.025pH Urine7.05.0-9.0Protein UrineNEGATIVENEG/TRACE mg/dLGlucose Urine UANEGATIVENEGATIVE mg/dLBilirubin UrineNEGATIVENEGATIVE Ketones UrineNEGATIVENEGATIVE mg/dLBlood UrineNEGATIVENEGATIVENitrite Urine NEGATIVENEGATIVEUrobilinogen Urine0.20.2-1.0 EU/dLLeukocyte Esterase UrineTRACE NEGATIVEUrine Microscopic IndicatedYESPerforming Lab:see noteML - [facility] LBUrine Microscopic Reviewed date:05/30/2025 09:54:53 AM Interpretation: Performing Lab: Notes/Report: [facility] ,WBC Urine0-2NONE SEEN #/HPFRBC Urine0-20-2 #/HPFBacteria UrineTRACENONE SEEN #/HPFMucus UrineNONE SEENNONE SEENSquamous Epithelial Cell UrineFEWNONE/RARE #/LPFCrystals Seen?None SeenNone Seen #/HPFCast Seen?NONE SEENNONE SEEN #/LPF Performing Lab:see noteML - [facility] LBURINALYSIS - REFLEX CULTURE/SENS Reviewed date:11/13/2024 11:59:49 AM Interpretation: Performing Lab: Notes/Report:PH6.55.0-8.0SP GRAVITY1.0061.005-1.030APPEARANCECLEARCLEARCOLOR YELLOWYELLOWPROTEINNEGATIVENEGATIVEGLUCOSENEGATIVENEGATIVEKETONESNEGATIVE NEGATIVEBILIRUBINNEGATIVENEGATIVEOCCULT BLOODNEGATIVENEGATIVELEUKO ESTERNEGATIVE NEGATIVENITRITENEGATIVENEGATIVEUROBILINOGEN0.2<2 mg/dL UNLESS OTHERWISE INDICATED, ALL TESTING PERFORMED AT: [facility] [address] [place] [address] ELEMENTARY SUBSTITUTE TEACHER: BARBARA DASH M.D. CLIA NUMBER [id number] [facility] ACCREDITATION AUID [id number] Urine Dip Reviewed date:11/12/2024 05:53:24 PM Interpretation: Performing Lab: Notes/Report: Bilirubin-Occult Qcmjj-Sdlmtxf-Volkpix-UJP-Uxtoblg-Ft3.0Protein-Specific [place] 1.010ColoryellowAppearanceclearLIPID PANEL WITH REFLEX TO DIRECT LDL Reviewed date:02/08/2025 11:13:42 AM Interpretation: Performing Lab: Notes/Report:KVGHYBMWAUU729779-828 mg/tEJBCEHAXSRFIJD84576-535 mg/dLVLDL-CHOL, WUMNFIARMS36<30 mg/dLHDL-CHOL45>=50 mg/dLLDL-CHOL, OTUASIMOYO67<130 mg/dL ADULT LDL CHOLESTEROL CLASSIFICATION <100mg/dL Optimal 100-129mg/dL Near/Above Optimal 130-159mg/dL Borderline High >160mg/dL High Risk Desirable range <100 mg/dL for patients with CHD or diabetes and <70 mg/dL for diabetic patients with known heart disease. Direct LDL is recommended for patients with triglycerides >400. LDL/HDL1.8<4.1 LDL/HDL RATIO MALE FEMALE below average risk <2.3 <2.3 average risk <5.0 <4.1 moderate risk <7.1 <5.6 high risk >7.1 >5.6 CHOL/HDL3.82.0-4.5TSH + FREE T4 PROFILE Reviewed date:02/08/2025 08:56:14 AM Interpretation: Performing Lab: Notes/Report:TSH1.690.270-4.200 uIU/mL The [employer] ([employer]) recommends the following reference ranges for TSH levels during : First trimester: 0.1 to 2.5 mIU/L Second trimester: 0.2 to 3.0 mIU/L Third trimester: 0.3 to 3.0 mIU/L FREE T41.120.80-1.90 ng/dLCOMPREHENSIVE METABOLIC PANEL WITH GFR Reviewed date:02/08/2025 08:56:14 AM Interpretation: Performing Lab: Notes/Report:HHXGVOX7394-581 mg/yXQTR23-37 mg/dLCALCIUM9.48.6-10.5 mg/dL CREATININE, BLOOD0.710.51-1.15 mg/dLeGFR (2020 CKD-EPI)116>59 mL/min/1.73m2 XOXWJF923234-268 mmol/LPOTASSIUM4.43.5-5.4 mmol/XLWPBUADV33947-231 mmol/JGA542 18-32 mmol/LANION BKJ935-13 mmol/LT. BILIRUBIN0.2<1.3 mg/dLALK KAVK1899-511 U/L GEL-NWAM670-26 U/AGIU-JLLH438-35 U/LT. PROTEIN6.56.0-8.3 g/dLALBUMIN4.23.5-5.2 g/dLCBC NO DIFF Reviewed date:02/08/2025 11:13:49 AM Interpretation: Performing Lab: Notes/Report:WBC13.83.6-11.0 THDS/CMMRBC4.253.80-5.20 MILL/GRJHCH43.311.9-16.0 G/DLHCT40.035-47 %BZC9751-344 fLMCH31.326.0-33.0 iyTGCR80.332.0-35.0 g/dlRDW12.8 11.2-14.8 %EGXHEHEX614035-622 THOUS/CMMVITAMIN D 25 HYDROXY Reviewed date:02/08/2025 09:10:44 AM Interpretation: Performing Lab: Notes/Report:VITAMIN D, 25 WRNKYGL64.630.0-100.0 ng/mL 25-OH VITAMIN D INTERPRETATION Deficiency.... <20.0 ng/ml Insufficiency..20.0-29.0 ng/ml Sufficiency....30.0-100.0 ng/ml Possible Toxicity...>150 ng/ml UNLESS OTHERWISE INDICATED, ALL TESTING PERFORMED AT: [facility] [address] [place] [address] ELEMENTARY SUBSTITUTE TEACHER: BARBARA DASH M.D. CLIA NUMBER [id number] [facility] ACCREDITATION AUID [id number] Reason For Referral No Information Medications Medication SIG (Take, Route, Frequency, Duration) Notes Start Date End Date Status Aspirin Adult Low Dose 81 MG 1 tablet Orally Onc e a day ActiveLabetalol HCl 200 MG1 tablet Orally Twice a dayActivePrenatalvitaminActive NIFEdipine ER 30 MG1 tablet on an empty stomach Orally Once a dayActiveMagnesium 400 MGas directed OrallyActiveSertraline HCl 50 MG1 tablet Orally Once a day; Duration: 90 days5ActiveAmoxicillin 500 MG1 capsule Orally every 8 hrs; Duration: 7 days5Active Social History Tobacco Use: Social History Observation Description Date Details (start date - stop date) Never Smoker NA - NA Sex Assigned At : Social History Observation Description Sex Assigned At Female Household Question Answer Notes Number of adults in household: 1 Number of children in household:1Tobacco Use/Smoking Question Answer Notes Tobacco use: nonsmoker [...] No patient entered data CAGE-AID Score 0 InterpretationNegativePRAPARE Question Answer Notes Date Completed/Updated: 11/06/2024 lucas nt entered data What is your current housing situation? I have housing patient entered data Are you worried about losing your housing? No patient entered data What is the highest level of school that you have finished? 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 Check all that apply I do not have problems meeting my needs Has lack of transportation kept you from medical appointments, meetings, work or from getting things needed for daily living?NoHow often do you see or talk to people that you care about and feel close to? (For example: talkingto friends on the phone, visiting friends or family, going to baptism or club meetings)More than 5 times a weekpatient entered dataHow stressed are you? Stress is when someone feels tense, nervous, anxious, or can't sleep at nightbecause their mind is troubledQuite a bitpatient entered dataIn the past year have you spent more than 2 nights in a row in a chcf, fpc, group home center, orjuvenile correctional facility?Nopatient entered dataAre you a refugee?Nopatient entered dataWhat country are you from?[place] Statespatient entered dataDo you feel physically and emotionally safe where you currently live?Yespatient entered dataIn the past year, have you been afraid of your partner or ex-partner?Nopatient entered dataPRAPARE Score:4 Problems Problem Type SNOMED Code ICD Code Onset Dates Problem Status W/U Status Risk Notes Problem Exercises teaching, guidance, and counseling (718686054) Exercise counseling (Z71.82) ActiveconfirmedProblemMissed period (07977531)Missed period (N92.6)Active confirmedProblemVitamin D deficiency (85555845)Vitamin D deficiency (E55.9) ActiveconfirmedProblemBurning sensation of vagina (finding) (404703303)Vaginal burning (N94.9)ActiveconfirmedProblemAnxiety depression (312463544)Anxiety with depression (F41.8)ActiveconfirmedProblemDietary management surveillance (285446291)Dietary counseling (Z71.3)ActiveconfirmedProblemFemale infertility (2438337)Female fertility problem (N97.9)Activeconfirmed Vital Signs Heart Rate 95 /min 05/21/2025 Ac Ser jayleeno 05/21/2025 01:17:11 PM EDT > Temperature 98.0 degrees Fahrenheit 05/21/2025 Tayo day, Dayron 05/21/2025 01:17:11 PM EDT > Respiratory Rate 18 /min 05/21/2025 Ac Dayron 05/21/2025 01:17:11 PM EDT > Blood pressure diastolic 85 mm Hg 05/21/2025 Jasmina domarty Dayron 05/21/2025 01:17:11 PM EDT > Oximetry 99 % 05/21/2025 Shen, Ser vando 05/21/2025 01:17:11 PM EDT > Height-cm 172.72 cm 05/21/2025 Shen, Ser vando 05/21/2025 01:17:11 PM EDT > Weight-kg 128.82 kg 05/21/2025 Shen, Ser vando 05/21/2025 01:17:11 PM EDT > Height 68 in 05/21/2025 Shen, Ser vando 05/21/2025 01:17:11 PM EDT > Blood pressure systolic 141 mm Hg 05/21/2025 Tayo day, Dayron 05/21/2025 01:17:11 PM EDT > Weight 284 lbs 05/21/2025 Shen, Ser vando 05/21/2025 01:17:11 PM EDT > BMI 43.18 kg/m2 05/21/2025 Robert Shen 05/21/2025 01:17:11 PM EDT > Encounters Encounter Location Date Provider Diagnosis [address] [id number] 11/06/2024 Sabiha Traci Depression with anxi ety F41.8 and Hospital discharge follow-up Z09 [address] [place] [id number] 11/12/2024 Sabiha Traci Dysuria R30.[address] [id number] 12/04/2024 [place] Traci Anxiety with depress ion F41.[address] [id number] [facility].00 ; Screening for cardiovascular condition Z13.6 ; Exercise counseling Z71.82 ; Nutritional counseling Z71.3 ; Screening for thyroid disorder Z13.29 and Vitamin D deficiency E55.9 [address] [place], [place] [id number] 05/21/2025 Judy Marleni Anxiety with depress ion F41.8 ; Left otitis media, unspecified otitis media type H66.92 ; 21 weeks gestation of Z3A.21 ; Severe obesity (BMI >= 40) E66.01 and BMI 40.0-44.9, adult Z68.41 [address] [place], [place] [id number] 04/26/2025 Noelle Chris Anxiety with depress ion F41.8 [address] [place], [place] [id number] 06/17/2025 Merary Espino [address] [place], [place] [address]/03/2024lyssa Marleni Assessments Encounter Date Diagnosis (ICD Code) Assessment Notes Treatment Notes Treatment Clinical Notes Section Notes 11/06/2024 Depression with anxiety (ICD-10 - F41.8) begin zoloft will start with 25mg and increase to 50mg if needed f.u in 4 weeks or sooner if needed if develop SI, please go to ER or call 911. 12/04/2024nxiety with depression (ICD-10 - F41.8) increasing zoloft f.u in 3 months or sooner if needed 04/26/2025nxiety with depression (ICD-10 - F41.8)02/05/2025Encounter for wellness examination (ICD-10 - Z00.00)The patient comes in today to complete yearly wellness exam with this provider. Blood work that is ordered is explained to the patient as to what we would be screening for and what the blood work spec ifically looks at. All blood work will be reviewed as it is resulted and then corresponded to the patient either by phone, during a visit, or both.02/05/2025 Screening for cardiovascular condition (ICD-10 - Z13.6) Based on this patients' elevated BMI, it is in the medical opinion of myself that they are screenedfor any cardiovascular condition that may detrimental to their health and wellbeing. This is to include a cholesterol panel to evaluate any concerning elevations of their lipids. Based on these findings a collaboration between the patient and this provider will be had either onthe phone or at their next office visit to discuss the best course of treatment to help minimize the worsening of any cardiovascular conditions. 05/21/2025Left otitis media, unspecified otitis media type (ICD-10 - H66.92) Both ears WNL upon examination Pt reports ongoing pain in L ear for 4 weeks, denies allergies, hx of otiti media in adult life andfeels similar RX sent at this time for Amoxicillin F/U PRN 05/21/2025nxiety with depression (ICD-10 - F41.8) Depression stable. Will continue current medications. Advised pt if they are have suicidal or homicidal to call 911 or go to the ER. F/u 3 months & PRN Continue following w/ OBGYN for 11/12/2024Dysuria (ICD-10 - R30.0) urine dip normal in office will send for culture weeks gestation of (ICD-10 - Z3A.21)02/05/2025Exercise counseling (ICD-10 - Z71.82) The patient was [...] diminished aches and pain, and better metabolism. 11/06/2024Hospital discharge follow-up (ICD-10 - Z09)05/21/2025Severe obesity (BMI >= 40) (ICD-10 - E66.01)02/05/2025Nutritional counseling (ICD-10 - Z71.3) The patient was counseled on appropriate nutritional diet choices that should be made daily. It wasencouraged that there should be 3 well balanced meals that occur daily with 1-2 healthy snacks thatmay occur in between those meals. Strong advisement was given to the patient to avoid all fast foods, fried foods, fatty foods, and greasy foods to alleviate any detrimental conditions in the future. The patient was encouraged to reach back out to the office if they find themselves unable to affordfresh fruits and vegetables for themselves or their family and be directed to local groups that would best help their dietary needs. 05/21/2025MI 40.0-44.9, adult (ICD-10 - Z68.41)02/05/2025Screening for thyroid disorder (ICD-10 - Z13.29)02/05/2025Vitamin D deficiency (ICD-10 - E55.9) 02/05/2025Other Plan Of Treatment Next Appt Details Provider Name:Judy Yepez , 08/20/2025 01:15:00 PM, [address] [place], [place], [id number], Insurance Providers Payer Name Payer Address Payer Phone Subscriber Number Group Number Insured Name Patient Relationship to Insured Coverage Start Date Coverage End Date [facility] [address] [place] [phone] [id number] Chayo Ramires Self - patient is the insured 3 Medicaid [facility] [facility] [address] [place], [place] [id number], Lauren Self - patient is the [id number] 2022 Medical (General) History Medical History History ICD Code anxiety depressionSurgical History Surgery Date(Month/Year) [place] teeth laparoscopy- endometriosis
--- OUTSIDE RECORDS SUMMARY | 2025-06-20 21:06 | XMS_ITS | Encounter Summary ---
Author Organization [facility] tem Address [id number] [address] [place] [address] Care Team Providers Care Med Spec Name Role Phone Services, [facility] Primary Care Provider Encounter Details DateTypeDepartmentCare Team (Latest Contact Info)Yisevymbrpt33/26/2025Travel Social History Tobacco UseTypesPacks/DayYears UsedDateSmoking Tobacco: NeverSmokeless [...] money to get more.Never True05/17/2025Estimated Date of YorbcdqzFpwiqnixBav85/11/2026ased on last menstrual period of 12/26/2024Sex and Gender InformationValueDate RecordedSex Assigned at BirthNot on fileLegal Sex Vsaurl4409/30/2022 2:11 PM ESTGender IdentityNot on fileSexual OrientationNot on filedocumented as of this encounter Plan of Treatment DateTypeDepartmentCare Team (Latest Contact Info)Rablfeimqpb42/09/2025 2:00 PM ESTOffice Visit Maternal- [facility] at [facility] [address] [place] [phone] Sheila Cruz MD [address] [facility] 1st Floor [place], [place] [phone] documented as of this encounter Visit Diagnoses Not on filedocumented in this encounter Care Teams Team MemberRelationshipSpecialtyStart DateEnd Date Services, [facility] [address] [place], [place] PCP - GeneralFamily Medicine11/03/24documented as of this encounter
--- OUTSIDE RECORDS SUMMARY | 2025-06-20 21:07 | XMS_ITS | Clinical Summary ---
Author Organization official.fm [facility] tem Address [facility] [id number] [address] [place] [address] Care Team Providers Care Cylinder Checker Name Role Phone Services, [facility] Primary Care Provider Allergies No known active allergies Medications MedicationSigDispense QuantityRefillsLast FilledStart DateEnd DateStatus omeprazole (PriLOSEC) 20 mg capsule Take 1 capsule (20 mg total) by mouth in the morning.Active cholecalciferol 10 mcg (400 unit) tablet 2 tablets (800 Units total) in the morning.01/26/2024ctive magnesium oxide (MAGOX) 400 mg tablet Take 1 tablet (400 mg total) by mouth in the morning.Active aspirin 81 mg Take 1 tablet (81 mg total) by mouth in the morning.Active 115/iron/folic acid ( 19 ORAL) Take 1 tablet by mouth in the morning.Active NIFEdipine XL (PROCARDIA XL) 30 mg 24 hr tablet Indications:Chronic hypertension affecting ,20 weeks gestation of pregnancyTake 2 tablets (60 mg total) by mouth in the morning and at bedtime. 60 tablet 5Active sertraline (ZOLOFT) 25 mg tablet Indications:Anxiety disorder affecting , antepartumTake 1 tablet (25 mg total) by mouth in the morning. 30 tablet 5Active sertraline (ZOLOFT) 50 mg tablet Indications:Anxiety disorder affecting , antepartumTake 1 tablet (50 mg total) by mouth in the morning. 30 tablet 5Active sertraline (ZOLOFT) 25 mg tablet Take 2 tablets (50 mg total) by mouth before bedtime.06/18/2025Discontinued sertraline (ZOLOFT) 25 mg tablet Take 3 tablets (75 mg total) by mouth before bedtime.51 Discontinued clobetasoL (TEMOVATE) 0.05 % ointment Indications:Acute palmoplantar pustular psoriasis,Chronic hypertension affecting ,20 weeks gestation of pregnancyApply a thin layer to the affected areas twice daily. 30 g Expired NIFEdipine XL (PROCARDIA XL) 30 mg 24 hr tablet Indications:Chronic hypertension affecting ,20 weeks gestation of pregnancyTake 1 tablet (30 mg total) by mouth in the morning and at bedtime. 60 tablet Discontinued Active Problems ProblemNoted DateDiagnosed DateHeart vubfedszqdlb64/23/2024Estimated Date of BmkhuuzmRwhajysqDls71/11/2026ased on last menstrual period of 12/26/2024 Encounters DateTypeDepartmentCare FjvvInqwqlnlbiy31/28/2025 2:00 PM EDTTelemedicine Maternal- Medicine at [address] [phone] Yordy Cruz MD Chronic hypertension affecting (Primary Dx); 20 weeks gestation of ; Anxiety disorder affecting , antepartum; Acute palmoplantar pustular psoriasis; Severe obesity due to excess calories affecting , antepartum ([facility]) 06/18/2025 7:48 AM EDT - 06/18/2025 11:59 PM EDTHospital Encounter [facility] [address] [place] [address] Acute palmoplantar pustular psoriasis; Chronic hypertension affecting ; Severe obesity due to excess calories affecting , antepartum ([facility]); Hypertension affecting in second trimester Discharge Disposition: Home06/16/20258902Ojlhbl55/03/2025Orders Only Maternal- Medicine at [address] [phone] Bethany Lundy LPN Acute palmoplantar pustular psoriasis; Chronic hypertension affecting ; Severe obesity due to excess calories affecting , antepartum ([facility]); Hypertension affecting in second uynutfmmv24/03/2025Orders Only Maternal- Medicine at [facility] [address] [place] [address] Bethany Lundy, GAMMA OPERATOR Acute palmoplantar pustular psoriasis (Primary Dx); Chronic hypertension affecting ; Severe obesity due to excess calories affecting , antepartum (CMS-HCC); Hypertension affecting in second wpmzavypj77/26/2025 9:00 AM EDTOffice Visit Maternal- Medicine at [facility] [address] [place] [address] Clair Hare MD Hamilton, Ira, MD Chronic hypertension affecting (Primary Dx); Acute palmoplantar pustular psoriasis; Severe obesity due to excess calories affecting , antepartum ([facility]); 20 weeks gestation of fqhjysqws01/26/2025 7:12 AM EDT - 05/17/2025 11:59 PM EDT Hospital Encounter [facility] - [facility] Imaging [address] [place] [address] Hypertension affecting in second trimester Discharge Disposition: Home05/17/2025Results Follow-Up Maternal- Medicine at [facility] [address] [place] [address] Yordy Cruz MD B-type natriuretic giwkivk2705/17/2025Orders Only Maternal- Medicine at [facility] [address] [place] [address] Bethany Lundy, GAMMA OPERATOR Acute palmoplantar pustular psoriasis (Primary Dx); Chronic hypertension affecting ; Severe obesity due to excess calories affecting , antepartum ([facility]); Hypertension affecting in second rgpefxfhb34/24/8002Czbppv83/08/2025 6:45 PM EDT - 04/29/2025 7:24 PM EDTEmergency [facility] [address] [place] [phone] Tian Rodriguez MD Laceration of right thumb without foreign body without damage to nail, initial encounter (Primary Dx) Discharge Disposition: Home04/29/20250470Hidinb03/02/2025Orders Only Maternal- Medicine at [facility] [address] [place] [phone] Ref Prov, Not In System 04/23/2025bstract Maternal- Medicine at [facility] [address] [place] [phone] Yordy Cruz MD 04/19/2025Orders Only Maternal- Medicine at [facility] [address] [place] [phone] Joann Moise RN Hypertension affecting in second trimester (Primary Dx)from Last 3 Months Family History Medical HistoryRelationNameCommentsEpilepsyBrotherDiabetesFatherHypertension FatherCancerMaternal GrandfatherHypertensionMotherHeart diseasePaternal GrandfatherHypertensionPaternal GrandfatherSudden deathPaternal Grandfather Sudden deathPaternal UncleAutismNeg HxAutoimmune diseaseNeg HxBleeding Disorder Neg HxClotting disorderNeg HxDevelopmental delayNeg HxDown syndromeNeg HxHeart defectNeg HxRelationNameStatusCommentsBrotherFatherMaternal GrandfatherDeceased Maternal GrandmotherDeceasedMotherPaternal GrandfatherPaternal Grandmother DeceasedPaternal UncleAlive Social History Tobacco UseTypesPacks/DayYears UsedDateSmoking Tobacco: NeverSmokeless Tobacco: Never Tobacco Cessation:Counseling Given: Not Answered Alcohol UseStandard Drinks/WeekCommentsNot Currently0 (1 standard drink = 0.6 oz pure alcohol)Hunger ScreeningAnswerDate RecordedWithin the past 12 months we worried whether our food would run out before we got money to buy more.Never True05/17/2025Within the past 12 months the food we bought just didn't last and we didn't have money to get more.Never True05/17/2025Estimated Date of KxseucjgUmrrujelXhf44/11/2026ased on last menstrual period of 12/26/2024Sex and Gender InformationValueDate RecordedSex Assigned at BirthNot on fileLegal Sex Ilvxcx5409/30/2022 2:11 PM ESTGender IdentityNot on fileSexual OrientationNot on file Last Filed Vital Signs Vital SignReadingTime TakenCommentsBlood Etupyayt546/8405/17/2025 7:51 AM EDT Bxdqy600705/17/2025 7:51 AM DRNPeotkrccrve79.1 ??C (98.7 ??F)04/29/2025 6:26 PM EDTRespiratory Gbds841804/29/2025 6:26 PM EDTOxygen Fosgkwptfu91%04/29/2025 6:26 PM EDTInhaled Oxygen Concentration--Vtvuup205.1 kg (282 lb 8 oz)05/17/2025 7:51 AM EBVCzujuy049.7 cm (5' 7.99 )05/17/2025 7:51 AM EDTBody Mass Index42.96 05/17/2025 7:51 AM EDT Plan of Treatment DateTypeDepartmentCare Team (Latest Contact Info)Xkludfwzwsm84/09/2025 2:00 PM ESTOffice Visit Maternal- Medicine at [facility] [address] [place] [address] Yordy Cruz MD [address] [address] Health MaintenanceDue DateLast DoneCommentsDepression Ajxyvynlz98/29/2004Adult BMI Follow Up Plan2010DTaP,Tdap and Td Vaccines (1 - Tdap)2011 Influenza Qztkxbn4004/22/2025RSV ( or age 60+ yrs) (1 - Risk 1- dose series)08/07/2025dult BMI Saaayblvc72Tobacco Screening Pap Smear//, 11/23/2022, 11/23/2022, Additional history exists Medical Devices Not on file Procedures Procedure NamePriorityDate/TimeAssociated DiagnosisCommentsUS [facility], 1 DRBCUNnzymlo33/28/2025 9:09 AM EDT 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 Severe obesity due to excess calories affecting , antepartum (CMS-HCC) Hypertension affecting in second trimester B-TYPE NATRIURETIC YAOXDVUSewgavq75/26/2025 9:54 AM EDT Chronic hypertension affecting 20 weeks gestation of [facility] COMPREHENSIVE ANATOMIC NUUXUORvgapjv23/26/2025 9:10 AM EDT Hypertension affecting in second trimester UNLISTED LAB VDJGBznjiiw02/26/2025 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 Severe obesity due to excess calories affecting , antepartum (CMS-HCC) Hypertension affecting in second trimester PM ED LACERATION YPXGRSKjaafvk51/08/2025 6:52 PM EDT URIC NMUJXcxhcse77/27/2025 1:11 PM JKFEEIErsyiff55/27/2025CREATININE, SERUM Jphajah9104/17/2025PROTIME & SWFQebhqsx11/27/9665OBONUisdtwd38/27/2025 CBC (NO DIFF)Ivyvoxz2804/17/2025 TYPE AND GOYRXQVfzdwkh42/30/2025 HEMOGLOBIN W1TSnkqfgx07/30/2025 HEPATITIS B SURFACE JVRHVXUCnmwkks82/30/2025 HEPATITIS C(HCV) ANTIBODY W/REFLEX TO NONLohlwxp18/30/2025 DRUG SCREEN, OANCIBytamtw39/30/2025 CBC (NO DIFF)Erfsywn0803/20/2025 HIV 1&2 AB/AG SCREEN (P24 AG)Pzmxycj2903/20/2025 RUBELLA IGG IMMUNE ZRJEYUYhyykcj97/30/2025 SYPHILIS TOTAL(UNKNOWN SYPHILIS STATUS)Hawactq0603/20/2025 PAP LBSAIOkcwaky17/04/2023 5:20 AM EDT Encounter for screening for malignant neoplasm of cervix Encounter for screening for human papillomavirus (HPV) from Last 3 Months or Most Recently Relevant to Health Maintenance Results * [facility] OB FOLLOW-UP, 1 FETUS (06/18/2025 9:09 AM EDT) Only the most recent of2 resultswithin the time period is included. Anatomical RegionLateralityModalityOB-GYNUltrasoundSpecimen (Source)Anatomical Location / LateralityCollection Method / VolumeCollection TimeReceived Time 06/18/2025 8:05 AM EDT Narrative 06/18/2025 9:41 AM EDT NAME: ??PAULA HUGHES : 1990 SEX: F Accession Number: [id number] ORDERING PHYSICIAN: YORDY CRUZ REFERRING PHYSICIAN: ISRAEL LUNA Coding Procedures ? 64749: Ultrasound, uterus, real time with image documentation, follow up,transabdominal ? approach per fetus Indication Screening for follow-up survey, Anxiety , Depression, Obesity in , History of gestationalhypertension, Obesity in , Chronic hypertension affecting . History OB History ? 2. Para 1 ? [id number] Maternal Assessment Physical Exam ??Height 173 cm, [...] (oz) ? 15 oz EFW by: ?Hadlock (HAF-IX-PV-FL) Extended Tibia ??37.8 mm 24w 2d 27% Gavino [employer] Field Service Engineer ? 4.7 mm CM ? 4.4 mm [...] Thorax RVOT view. LVOT view. 3-vessel view. 2-xtadhc-jmfzzud view. ? Right lung. Left lung. Abdomen [...] primary OB provider unless otherwise specified by M. Results forwarded to ordering provider so they can follow up with the patient as necessary. Procedure Note Daniel Arndt MD - 06/18/2025 NAME: PAULA HUGHES : 1990 SEX: F Accession Number: [id number] ORDERING PHYSICIAN: YORDY CRUZ REFERRING PHYSICIAN: ISRAEL LUNA Coding Procedures 90691: Ultrasound, uterus, real time with image documentation, follow up, transabdominal approach per fetus Indication Screening for follow-up survey, Anxiety , Depression, Obesity in , History of gestational hypertension, Obesity in , Chronic hypertension affecting . History OB History 2. Para 1 [id number] Maternal Assessment Physical Exam Height 173 cm, 5 ft 8 in. Initial weight 124 kg, 274 lb.Initial BMI 41.66 kg/m?? Method Transabdominal ultrasound examination. View: Suboptimal view: limited byfetal position. Ukmar . Number of fetuses: 1 Dating LMP [...] EFW (oz) 15 oz EFW by: Hadlock (KJK-OJ-HO-FL) Extended Tibia 37.8 mm 24w 2d 27% Gavino Electronic Field Service Engineer 4.7 mm CM 4.4 mm 8% Nicolaides [...] Thorax RVOT view. LVOT view. 3-vessel view. 7-atvjcn-ualhwwgjalu. Right lung. Left lung. Abdomen Abdom. wall. [...] with thepatient as necessary. Authorizing ProviderResult TypeResult Araceli Cruz MDHASKELL [facility] ORDERABLES Final Result * B-type natriuretic peptide (05/17/2025 9:54 AM EDT)ComponentValueRef RangeTest MethodAnalysis TimePerformed AtPathologist RrastpvdrLZX91<=100 pg/mL05/17/2025 11:13 AM EDMAGRUDER HOSPITAL LABORATORYSpecimen (Source)Anatomical Location / LateralityCollection Method / VolumeCollection TimeReceived Time BloodVenous blood / UnknownVenipuncture / Qmzyoag9005/17/2025 9:54 AM EDT 05/17/2025 9:54 AM EDT Narrative Authorizing ProviderResult TypeResult Araceli Cruz MDLAB BLOOD ORDERABLES Final ResultPerforming OrganizationAddressCity/State/ZIP CodePhone Number [facility] [address] [place] [address], * Unlisted Lab Test (05/17/2025)ComponentValueRef RangeTest MethodAnalysis Time Performed AtPathologist SignatureFetal Free Cell Dnalow riskMANUALLY TRANSCRIBED RESULTSSpecimen (Source)Anatomical Location / LateralityCollection Method / VolumeCollection TimeReceived TimeBlood (Arm)05/17/2025 Narrative Authorizing ProviderResult TypeResult Araceli Cruz MDCRAWFORD [facility] BLOOD ORDERABLES Final ResultPerforming OrganizationAddressCity/State/ZIP CodePhone Number MANUALLY TRANSCRIBED RESULTS * Laceration Repair (04/29/2025 6:52 PM EDT) Narrative Tian Rodriguez MD - 04/29/2025 6:52 PM EDT Tian Rodriguez MD 04/29/2025 8:19 PM Laceration Repair Date/Time: 04/29/2025 6:52 PM Performed by: Tian Rodriguez MD Authorized by: Tian Rodriguez MD ?? Consent: ??Consent obtained: ??Verbal ??Consent given by: ??Patient ??Risks, benefits, and alternatives were discussed: yes ?Risks discussed: ??Infection and pain ??Alternatives discussed: ??No treatment [place] protocol: ??Procedure explained and questions answered to patient or proxy's satisfaction: yes ?Patient identity confirmed: ??Verbally with patient Anesthesia: ??Anesthesia method: ??None Laceration details: ??Location: ??Finger ??Finger location: ??R thumb ??Length (cm): ??0.5 Exploration: ??Hemostasis achieved with: ??Direct pressure ??Contaminated: no ?? Skin repair: ??Repair method: ??Tissue adhesive Repair type: ??Repair type: ??Simple Post-procedure details: ??Dressing: ??Open (no dressing) ??Procedure completion: ??Tolerated Authorizing ProviderResult TypeResult StatusPaul Jarred Rodriguez MDPROCEDURE/MINOR SURGICAL ORDERABLESFinal Result * Uric acid (04/17/2025 1:11 PM EDT)Specimen (Source)Anatomical Location / LateralityCollection Method / VolumeCollection TimeReceived TimeBloodVenous blood / Unknown Narrative Authorizing ProviderResult TypeResult StatusNot In System Ref ProvLAB BLOOD ORDERABLESFinal ResultPerforming OrganizationAddressCity/State/ZIP CodePhone Number MANUALLY TRANSCRIBED RESULTS * APTT (04/17/2025)ComponentValueRef RangeTest MethodAnalysis TimePerformed At Pathologist OcvqmtcagYDDE09.5MANUALLY TRANSCRIBED RESULTSSpecimen (Source) Anatomical Location / LateralityCollection Method / VolumeCollection Time Received TimeBloodVenous blood / Mnsopas8204/17/2025 Narrative Authorizing ProviderResult TypeResult StatusNot In System Ref ProvLAB BLOOD ORDERABLESFinal ResultPerforming OrganizationAddressCity/State/ZIP CodePhone Number MANUALLY TRANSCRIBED RESULTS * Protime & INR (04/17/2025)Specimen (Source)Anatomical Location / Laterality Collection Method / VolumeCollection TimeReceived TimeBloodVenous blood / Unknown Narrative Authorizing ProviderResult TypeResult StatusNot In System LiveHealthierLAB BLOOD ORDERABLESFinal ResultPerforming OrganizationAddressCity/State/ZIP CodePhone Number MANUALLY TRANSCRIBED RESULTS * CBC without diff (04/17/2025) Only the most recent of2 resultswithin the time period is included. ComponentValueRef RangeTest MethodAnalysis TimePerformed AtPathologist Signature Tsgrnowiqd99.9MANUALLY TRANSCRIBED IXEQTKGApevyfmmip12.4MANUALLY TRANSCRIBED RESULTSRbc Mcv (Fl) By Automated Count93.2MANUALLY TRANSCRIBED RESULTSPlatelets 251MANUALLY TRANSCRIBED RESULTSSpecimen (Source)Anatomical Location / Laterality Collection Method / VolumeCollection TimeReceived TimeBloodVenous blood / Unknown Narrative Authorizing ProviderResult TypeResult StatusNot In System LiveHealthierLAB BLOOD ORDERABLESFinal ResultPerforming OrganizationAddressCity/State/ZIP CodePhone Number MANUALLY TRANSCRIBED RESULTS * BUN (04/17/2025)Specimen (Source)Anatomical Location / LateralityCollection Method / VolumeCollection TimeReceived TimeBloodVenous blood / Unknown Narrative Authorizing ProviderResult TypeResult StatusNot In System [employer] BLOOD ORDERABLESEdited Result - FinalPerforming OrganizationAddressCity/State/ZIP Code Phone Number MANUALLY TRANSCRIBED RESULTS * Creatinine includes GFR, serum (04/17/2025)Specimen (Source)Anatomical Location / LateralityCollection Method / VolumeCollection TimeReceived Time BloodVenous blood / Unknown Narrative Authorizing ProviderResult TypeResult StatusNot In System [employer] BLOOD ORDERABLESEdited Result - FinalPerforming OrganizationAddressCity/State/ZIP Code Phone Number MANUALLY TRANSCRIBED RESULTS * HIV 1&2 AB/AG Screen (P24 AG) (03/20/2025)ComponentValueRef RangeTest Method Analysis TimePerformed AtPathologist SignatureHIV 1&2 AB/AGNON REACTIVE MANUALLY TRANSCRIBED RESULTSSpecimen (Source)Anatomical Location / Laterality Collection Method / VolumeCollection TimeReceived TimeBloodVenous blood / Unknown Narrative Authorizing ProviderResult TypeResult StatusNot In System LiveHealthierLAB BLOOD ORDERABLESFinal ResultPerforming OrganizationAddressCity/State/ZIP CodePhone Number MANUALLY TRANSCRIBED RESULTS * Rubella IGG immune status (03/20/2025)ComponentValueRef RangeTest Method Analysis TimePerformed AtPathologist SignatureRubella immune IgGIMMUNEMANUALLY TRANSCRIBED RESULTSSpecimen (Source)Anatomical Location / LateralityCollection Method / VolumeCollection TimeReceived TimeBloodVenous blood / Unknown Narrative Authorizing ProviderResult TypeResult StatusNot In System Ref ProvLAB BLOOD ORDERABLESFinal ResultPerforming OrganizationAddressCity/State/ZIP CodePhone Number MANUALLY TRANSCRIBED RESULTS * Syphilis Total (Unknown Syphilis Status) (03/20/2025)ComponentValueRef Range Test MethodAnalysis TimePerformed AtPathologist SignatureSyphilisNON REACTIVE MANUALLY TRANSCRIBED RESULTSSpecimen (Source)Anatomical Location / Laterality Collection Method / VolumeCollection TimeReceived TimeBloodVenous blood / Unknown Narrative Authorizing ProviderResult TypeResult StatusNot In System Ref ProvLAB BLOOD ORDERABLESFinal ResultPerforming OrganizationAddressCity/State/ZIP CodePhone Number MANUALLY TRANSCRIBED RESULTS * Hepatitis C(HCV) Ab w/ Reflex to PCR (03/20/2025)ComponentValueRef RangeTest MethodAnalysis TimePerformed AtPathologist SignatureHepatitis C AntibodyNON REACTIVEMANUALLY TRANSCRIBED RESULTSSpecimen (Source)Anatomical Location / LateralityCollection Method / VolumeCollection TimeReceived TimeBloodVenous blood / Unknown Narrative Authorizing ProviderResult TypeResult StatusNot In System Ref ProvLAB BLOOD ORDERABLESFinal ResultPerforming OrganizationAddressCity/State/ZIP CodePhone Number MANUALLY TRANSCRIBED RESULTS * Drug Screen, Urine (03/20/2025)ComponentValueRef RangeTest MethodAnalysis Time Performed AtPathologist SignatureMethadoneNEGATIVEMANUALLY TRANSCRIBED RESULTS OpiatesNEGATIVEMANUALLY TRANSCRIBED RESULTSAmphetamine/MethamphetamineNEGATIVE MANUALLY TRANSCRIBED RESULTSCocaine MetaboliteNEGATIVEMANUALLY TRANSCRIBED RESULTSPhencyclidineNEGATIVEMANUALLY TRANSCRIBED RESULTSThc Marijuana, Urine NEGATIVEMANUALLY TRANSCRIBED RESULTSOxycodoneNEGATIVEMANUALLY TRANSCRIBED RESULTSBarbituratesNEGATIVEMANUALLY TRANSCRIBED RESULTSBenzodiazepinesNEGATIVE MANUALLY TRANSCRIBED RESULTSSpecimen (Source)Anatomical Location / Laterality Collection Method / VolumeCollection TimeReceived TimeUrine Narrative Authorizing ProviderResult TypeResult StatusNot In System Ref ProvURINE ORDERABLESFinal ResultPerforming OrganizationAddressCity/State/ZIP CodePhone Number MANUALLY TRANSCRIBED RESULTS * Hepatitis B surface antigen (03/20/2025)ComponentValueRef RangeTest Method Analysis TimePerformed AtPathologist SignatureHepatitis B Surface Antigen NEGATIVEMANUALLY TRANSCRIBED RESULTSSpecimen (Source)Anatomical Location / LateralityCollection Method / VolumeCollection TimeReceived TimeBloodVenous blood / Unknown Narrative Authorizing ProviderResult TypeResult StatusNot In System Ref ProvLAB BLOOD ORDERABLESFinal ResultPerforming OrganizationAddressCity/State/ZIP CodePhone Number MANUALLY TRANSCRIBED RESULTS * Type and screen (03/20/2025)ComponentValueRef RangeTest MethodAnalysis Time Performed AtPathologist SignatureAbo/Rh(D)B PositiveMANUALLY TRANSCRIBED RESULTSAntibody ScreenNEGATIVEMANUALLY TRANSCRIBED RESULTSSpecimen (Source) Anatomical Location / LateralityCollection Method / VolumeCollection Time Received TimeBloodVenous blood / Unknown Narrative Authorizing ProviderResult TypeResult StatusNot In System Ref ProvBLOOD BANK TEST ORDERABLESFinal ResultPerforming OrganizationAddressty/State/ZIP Code Phone Number MANUALLY TRANSCRIBED RESULTS * Hemoglobin A1c (03/20/2025)ComponentValueRef RangeTest MethodAnalysis Time Performed AtPathologist SignatureHemoglobin A1C5.14.0 - 6.0 %MANUALLY TRANSCRIBED RESULTSSpecimen (Source)Anatomical Location / LateralityCollection Method / VolumeCollection TimeReceived TimeBloodVenous blood / Unknown Narrative Authorizing ProviderResult TypeResult StatusScanning Provider ExternalLAB BLOOD ORDERABLESFinal ResultPerforming OrganizationAddressCity/State/ZIP CodePhone Number MANUALLY TRANSCRIBED RESULTS * Pap Smear (11/23/2022 5:20 AM EDT)Specimen (Source)Anatomical Location / LateralityCollection Method / VolumeCollection TimeReceived Time11/23/2022 5:20 AM EDT11/23/2022 5:29 AM EDT Narrative COPATH - 11/24/2022 1:05 PM EDT [facility] ? [address] ? [place] [id number] ? Gynecologic Cytology Consultation ? Patient Name:SANTHOSH RAMIRESJULISSA Lopez:1990 (Age: 32)Gender:FTaken:11/23/2022Reported:11/24/2022hysician(s):Bethany Raymundo CNP ([phone])Copy To: Rec. #:[id number]: #10 [id number] Final Cytologic Interpretation ThinPrep Pap Test (Cervical): Satisfactory for evaluation. A transformation zone component is present. NEGATIVE FOR INTRAEPITHELIAL LESION OR MALIGNANCY. ?? jja/11/24/2022 Interpretation performed at [email or web address], [address] [place] [address], License number: [id number]. Electronically Signed Out By ?ZORA Walter(ASCP) Date of Last Menstrual Period: ? (None Given) Other Clinical Conditions: Z12.4 Screening for malignant neoplasm of cervix Z11.51 Screening for HPV Source of Specimen ??ThinPrep Pap Test (Cervical) ? Thin Prep Pap ([employer]) Fee Code(s): ?? G0145 Authorizing ProviderResult TypeResult StatusAmy Meliza Raymundo APRN-[facility]/CYTOLOGY ORDERABLESFinal ResultPerforming OrganizationAddress City/State/ZIP CodePhone Number COPATH from Last 3 Months or Most Recently Relevant to Health Maintenance Insurance Care Teams Team MemberRelationshipSpecialtyStart DateEnd Services, [facility] [address] [place], [place] [facility]11/03/24
[2025-06-20 21:19] LABS: Glucose Urine UA 250 mg/dL (NEGATIVE)
[2025-06-20 21:31] VITALS: BP 136/71; PULSE 80; TEMP 37.2; O2SAT 95
[2025-06-20 21:32] VITALS: BP 136/71; PULSE 87
--- NOTE | 2025-06-20 22:05 | PC.NURSE ---
Discharge Instructions are given and pt verbalizes understanding. Reassurance is provided from a standpoint. heart rate tracing is reassuring. Pt reports that she would like to go to the ER for a cardiac workup. RN offers a wheelchair and pt denies the need and prefers to walk.
--- NOTE | 2025-06-20 22:08 | PC.NURSE ---
Pt is discharged from [facility] per Dr. Smith's orders. RN escorts pt and her significant other down to ER.
== END 2025-06-20 22:00 | disposition home or self-care (01) ==
PROVIDERS: Admitting Provider Obstetrics & Gynecology; Visit Provider Obstetrics & Gynecology
DX: O16.2 Unspecified maternal hypertension, second trimester (principal); O99.891 Other specified diseases and conditions complicating pregnancy; R00.2 Palpitations; Z3A.25 25 weeks gestation of pregnancy; O99.342 Other mental disorders complicating pregnancy, second trimester; F41.9 Anxiety disorder, unspecified
CPT/HCPCS: 36415; 59025; 80048; 81001; 81003; 85025; 93005; 99285; G0378; G0379

== ENCOUNTER 2025-06-20 22:03 | Emergency (ER) | payer MEDICAID, SELFPAY ==
--- OUTSIDE RECORDS SUMMARY | 2025-05-30 15:20 | XMS_ITS | Encounter Summary ---
Author Organization [facility] Address [address] [place] [address] Care Team Providers Care Marketing Sales Supervisor Name Role Phone Judy Caal Unavailable Unavailable Reason for Visit * ReasonCommentsRoutine Visit Encounter Details DateTypeDepartmentCare Team (Latest Contact Info)Ekekximrurx91/09/2025 3:20 PM EDTRoutine [facility] [address] [place] [address] Rosie Qiu, GRINDER HAND [address] [place] [address] Chronic hypertension affecting ([facility]) (Primary Dx); Second trimester ([facility]); 22 weeks gestation of ([facility]) Social History Tobacco UseTypesPacks/DayYears UsedDateSmoking Tobacco: Never AssessedPHQ-2 AnswerDate RecordedPatient Health Questionnaire-2 Lgrin084 Estimated Date of RfoqamaeVzfvleusRgf92/11/2026ased on last menstrual period of 12/26/2024Sex and Gender InformationValueDate RecordedSex Assigned at BirthNot on fileLegal JcdWtwclj43/06/2024 9:48 AM EDTGender IdentityNot on fileSexual OrientationNot on filedocumented as of this encounter Last Filed Vital Signs Vital SignReadingTime TakenCommentsBlood Yrbpwzab381/8405/30/2025 4:31 PM EDT Pulse--Temperature--Respiratory Rate--Oxygen Saturation--Inhaled Oxygen Concentration--Iifvjv373 kg (286 lb)05/30/2025 4:31 PM EDTHeight--Body Mass Index43.4906/11/2024 2:39 PM EDTdocumented in this encounter Functional Status * Over the past 2 weeks, how often have you been bothered by any of the following problems?QuestionAnswerDate of AssessmentAuthorLittle interest or pleasure in doing thingsNot at all06/04/2025 1:54 PM Bethany Veneags LPN Feeling down, depressed, or hopelessNot at all06/04/2025 1:54 PM Bethany Venegas LPNPatient Health Questionnaire-2 Clbzi539 1:54 PM Bethany Venegas LPN documented as of this encounter Progress Notes * Rosie Qiu NP - 05/30/2025 3:20 PM EDT Reason for Appointment: Patient ID: Chayo Ramires is a 35 y.o. female who presents for Routine Visit Patient presents today for Return OB appointment. MEDICATIONS Current Outpatient Medications Medication Instructions Procardia XL 30 mg, Daily sertraline (ZOLOFT) 50 mg, Every 24 hours ALLERGIES No Known Allergies PROBLEMS Active Ambulatory Problems Diagnosis Date Noted Fallopian tube disorder 07/30/2024 PCOS (polycystic ovarian syndrome) 07/30/2024 induced hypertension, antepartum ([facility]) 04/25/2025 Vitamin D deficiency 05/23/2025 H/O pre-eclampsia in prior , currently ([facility]) 05/23/2025 Resolved Ambulatory Problems Diagnosis Date Noted No [...] nursing note reviewed. Exam conducted with a boom tender present. Vitals: Estimated body mass index is 43.03 kg/m?? as calculated from the following: Height as of 06/11/24: 5' 8 . Weight as of 05/23/25: 283 lb. BP: Patient's last menstrual period was 12/26/2024. ASSESSMENT & PLAN ICD-10-CM 1. Second trimester ([facility]) Z34.92 2. 22 weeks gestation of ([facility]) Z3A.22 POCT urinalysis dipstick manually resulted Return OB: Patient presents today for a routine obstetrics appointment. Patient is currently 22w1d . Patient states she is doing well but has complaints of being tired due to current . Patient has verbalizes frequent movement. labor precautions was discussed/given and patient was instructed to perform kick counts three times a day. Patient denies any headache, vision changes or significant soft tissue swelling. Patient currently taking Procardia 30mg BID and discussed with Dr. Broderick and will increase Procardia 60mg in am and continue 30 mg in the evening. Orders Placed This Encounter Procedures POCT urinalysis dipstick manually resulted Follow Up: Patient is to return to office in 1 week for routine OB appointment and blood pressure recheck. Documented by Rosie iQu NP on behalf of: Rosie Qiu NP documented in this encounter Plan of Treatment DateTypeDepartmentCare Team (Latest Contact Info)Xsvkzyyialv17/03/2025 1:50 PM ESTRoutine [facility] [address] [place] [address] [place] [phone] Caesar Broderick, [address] [place], [place] [id number] 12/16/2025 3:00 PM EDTOffice Visit [facility] [address] [place] [address] [place] [address] Caesar Broderick, DO [address] [place], [place] [phone] documented as of this encounter Procedures Procedure NamePriorityDate/TimeAssociated DiagnosisCommentsPOCT URINALYSIS DJDVXCERUyqhefg59/09/2025 3:24 PM EDT 22 weeks gestation of ([facility]) documented in this encounter Results * POCT urinalysis dipstick manually resulted (05/30/2025 3:24 PM EDT)Component ValueRef RangeTest MethodAnalysis TimePerformed AtPathologist SignatureColor, UAYellowClarity, UAClearGlucose, UANegativeNegative - 2000(110) ++++ mg/dL Bilirubin, UANegativeNegative - 4(70) +++ mg/dLKetones, UANegativeNegative - 160(16) ++++ mg/dLSpec Grav, UA1.0251 - 1.03Blood, UANegativeNegative - 50 Surjit/mcLpH, UA6.05 - 9Protein, UANegativeNegative - 2000(20) ++++ mg/dL Urobilinogen, UA0.20.2 - 12 mg/dLLeukocytes, UANegativeNegative - 500+++ Kaleigh/mcLNitrite, UANegativeNegative - PositiveSpecimen (Source)Anatomical Location / LateralityCollection Method / VolumeCollection TimeReceived Time Urine05/30/2025 3:24 PM EDT Narrative Authorizing ProviderResult TypeResult StatusRosie Qiu NPPOINT OF CARE TEST ENTER/EDIT ORDERABLESFinal Result documented in this encounter Visit Diagnoses Diagnosis Chronic hypertension affecting ([facility])- Primary Second trimester ([facility]) state, incidental 22 weeks gestation of ([facility]) documented in this encounter Care Teams Team MemberRelationshipSpecialtyStart DateEnd Date Judy Caal PCP - [facility]02/20/24documented as of this encounter
--- OUTSIDE RECORDS SUMMARY | 2025-06-18 07:48 | XMS_ITS | Encounter Summary ---
Author Organization [facility] [employer] [facility] tem Address [id number] [place] [address] Care Team Providers Care Energy Conservation Engineer Name Role Phone [facility], [facility] Primary Care Provider Reason for Referral * Diagnostic Imaging (Routine) - Pending ReviewSpecialtyDiagnoses / Procedures Referred By ContactReferred To ContactMaternal and Medicine Diagnoses 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 Severe obesity due to excess calories affecting , antepartum (CMS-HCC) Hypertension affecting in second trimester Procedures US [facility] with or without consult Sheila Cruz MD [address] [facility] [address] [place] [address] Phone: tel: fax: Maternal- Medicine at [facility] [address] [place] [address] Phone: tel: fax: Referral IDStatusReasonStart DateExpiration DateVisits RequestedVisits [id number] Review/ Reason for Visit * Diagnostic Imaging (Routine) - Pending ReviewSpecialtyDiagnoses / Procedures Referred By ContactReferred To ContactMaternal and Medicine Diagnoses 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 Severe obesity due to excess calories affecting , antepartum (CMS-HCC) Hypertension affecting in second trimester Procedures US [facility] with or without consult Sehila Cruz MD [address] [facility] 1[address] [place] [address] Phone: tel: fax: Maternal- Medicine at [facility] [address] [facility] [place] [address] Phone: tel: fax: Referral IDStatusReasonStart DateExpiration DateVisits RequestedVisits [id number] Review/ Encounter Details DateTypeDepartmentCare Team (Latest Contact Info)Xsqsbkzuypq71/28/2025 7:48 AM EDT - 06/18/2025 11:[address] [facility] [address] [place] [place] [phone] Acute palmoplantar pustular psoriasis; Chronic hypertension affecting ; Severe obesity due to excess calories affecting , antepartum ([facility]); Hypertension affecting in second trimester Discharge Disposition: Home Social History Tobacco UseTypesPacks/DayYears UsedDateSmoking Tobacco: NeverSmokeless Tobacco: NeverAlcohol UseStandard Drinks/WeekCommentsNot Currently0 (1 standard drink = 0.6 oz pure alcohol)Hunger ScreeningAnswerDate RecordedWithin the past 12 months we worried whether our food would run out before we got money to buy more.Never True05/17/2025Within the past 12 months the food we bought just didn't last and we didn't have money to get more.Never True05/17/2025Estimated Date of GjzkoemjEaeotvmbMml59/11/2026ased on last menstrual period of 12/26/2024Sex and Gender InformationValueDate RecordedSex Assigned at BirthNot on fileLegal Sex Zepzxg5509/30/2022 2:11 PM ESTGender IdentityNot on fileSexual OrientationNot on filedocumented as of this encounter Medications at Time of Discharge MedicationSigDispense QuantityRefillsLast FilledStart DateEnd Date aspirin 81 mg Take 1 tablet (81 mg total) by mouth in the morning. cholecalciferol 10 mcg (400 unit) tablet 2 tablets (800 Units total) in the morning.01/26/2024 magnesium oxide (MAGOX) 400 mg tablet Take 1 tablet (400 mg total) by mouth in the morning. NIFEdipine XL (PROCARDIA XL) 30 mg 24 hr tablet Indications:Chronic hypertension affecting ,20 weeks gestation of pregnancyTake 2 tablets (60 mg total) by mouth in the morning and at bedtime. 60 tablet omeprazole (PriLOSEC) 20 mg capsule Take 1 capsule (20 mg total) by mouth in the morning. 115/iron/folic acid ( 19 ORAL) Take 1 tablet by mouth in the morning. sertraline (ZOLOFT) 25 mg tablet Indications:Anxiety disorder affecting , antepartumTake 1 tablet (25 mg total) by mouth in the morning. 30 tablet sertraline (ZOLOFT) 50 mg tablet Indications:Anxiety disorder affecting , antepartumTake 1 tablet (50 mg total) by mouth in the morning. 30 tablet documented as of this encounter Plan of Treatment DateTypeDepartmentCare Team (Latest Contact Info)Sbknhpuemow45/09/2025 2:00 PM ESTOffice Visit Maternal- Medicine at [facility] [address] [place] [phone] Sheila Cruz MD [address] [facility] [address] [place] [address] documented as of this encounter Procedures Procedure NamePriorityDate/TimeAssociated DiagnosisCommentsUS [facility] OB FOLLOW-UP, 1 PWHJXRyuswtf90/28/2025 9:09 AM EDT 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 Severe obesity due to excess calories affecting , antepartum ([facility]) Hypertension affecting in second trimester documented in this encounter Results * [facility] OB FOLLOW-UP, 1 FETUS (06/18/2025 9:09 AM EDT)Anatomical Region LateralityModalityOB-GYNUltrasoundSpecimen (Source)Anatomical Location / LateralityCollection Method / VolumeCollection TimeReceived Time06/18/2025 8:05 AM EDT Narrative 06/18/2025 9:41 AM EDT NAME: ??PAULA HUGHES : 1990 SEX: F Accession Number: [id number] ORDERING PHYSICIAN: SHEILA CRUZ REFERRING PHYSICIAN: ISRAEL LUNA Coding Procedures ? 40718: Ultrasound, uterus, real time with image documentation, follow up,transabdominal ? approach per fetus Indication Screening for follow-up survey, Anxiety , Depression, Obesity in , History of gestationalhypertension, Obesity in , Chronic hypertension affecting . History OB History ? 2. Para 1 ? [id number] Maternal Assessment Physical Exam ??Height 173 cm, 5 ft 8 in. Initial weight 124 kg, 274 lb. Initial BMI 41.66 kg/m?? Method Transabdominal ultrasound examination. View: Suboptimal view: limited by position. Kumar . Number of fetuses: 1 Dating LMP on: ?12/26/2024 GA by LMP ?24 w + 6 d PETROS by LMP: ?10/02/2025 Previous Ultrasound on: ?03/01/2025 Type of prior assessment: ?CRL U/S measurement at prior assessment date ? 23.0 mm GA by previous U/S ? 24 w + 4 d PETROS by previous Ultrasound: ?10/04/2025 Ultrasound examination on: ? 06/18/2025 GA by U/S based upon: ??AC, BPD, Femur, HC GA by U/S ?25 w + 5 d PETROS by U/S: ?09/26/2025 Assigned: ?based on the LMP, selected on 05/17/2025 Assigned GA (weeks days) ? 24 w + 6 d Assigned PETROS: ??10/02/2025 General Evaluation Cardiac activity Present. FHR 146 bpm. Presentation: cephalic Placenta: Placental site: anterior, previously documented away from cervical os Umbilical cord: Cord vessels: 3 vessel cord. Insertion site: documented previously Amniotic fluid: Amount of AF: normal amount. MVP 6.9 cm Biometry Standard BPD ?63.0 mm 25w 4d 66% Hadlock OFD ?82.4 mm 26w 6d 95% Gavino HC ? 232.5 mm ?25w 2d 45% Hadlock Cerebellum tr ??28.3 mm 25w 0d 62% Hill AC ? 219.1 mm ?26w 3d 84% Hadlock Femur ??46.6 mm 25w 4d 58% Hadlock Humerus ?41.5 mm 25w 0d 46% Gavino HC / AC ?1.06 EFW ?868 g ?83% Hadlock EFW (lb) ? 1 lb EFW (oz) ? 15 oz EFW by: ?Hadlock (CRG-US-QW-FL) Extended Tibia ??37.8 mm 24w 2d 27% Gavino Electric Knife Operator ? 4.7 mm CM ? 4.4 mm ?? 8% Nicolaides Head / Face / Neck Cephalic index 0.76 ? 27% Nicolaides Nasal bone: ?present Extremities / Bony Struc FL / BPD ? 0.74 FL / HC ?0.20 FL / AC ?0.21 Other Structures FHR ?146 bpm Anatomy The following structures appear normal: Head/Neck: Cranium. Lateral ventricles. Choroid plexus. Midline falx. Cavum septi pellucidi. Cerebellum. Cisterna ? magna. Parenchyma. Vermis. ? Neck. Face: Lips. Profile. Nose. Nasal bone. Maxilla. Mandible. Orbits. Heart/Thorax: 4-chamber view. Situs. Aortic arch view. Bicaval view. Ductal arch view. Interventricular septum. Great ? vessels. Cardiac position. Cardiac axis. Cardiac size. Cardiac rhythm. ? Diaphragm. Abdomen: Stomach. Kidneys. Bladder. Right renal artery. Left renal artery. Extremities/Skeleton: Right upper arm. Right forearm. Right hand. Left foot. Skeleton The following structures could not be adequately visualized: Spine: Cervical spine. Thoracic spine. Lumbar spine. Sacral spine. The following structures were documented previously: Heart / Thorax RVOT view. LVOT view. 3-vessel view. 9-ldcbiv-qwfncjd view. ? Right lung. Left lung. Abdomen ?Abdom. wall. Cord insertion. Genitals. Extremities / ??Left upper arm. Left forearm. Left hand. Right upper leg. Right lower leg. Right foot. Left upper leg. ? Left lower leg. Maternal Structures Uterus Visualized Cervix Suboptimal Right Ovary ?Not visualized Left Ovary ? Not visualized Cul de Sac ? Suboptimal Impression Single live intrauterine . 24w 6d. Normal growth. EFW measures at the 83%, AC measures at the 84%. Amniotic fluid MVP measures 6.9 cm. Recommendations The patient is scheduled in four weeks to complete anatomic survey. Subsequent follow up or other follow up as clinically determined by primary OB provider unless otherwise specified by MFM. Results forwarded to ordering provider so they can follow up with the patient as necessary. Procedure Note Daniel Arndt MD - 06/18/2025 NAME: PAULA HUGHES : 1990 SEX: F Accession Number: [id number] ORDERING PHYSICIAN: SHEILA CRUZ REFERRING PHYSICIAN: ISRAEL LUNA Coding Procedures 84556: Ultrasound, uterus, real time with image documentation, follow up, transabdominal approach per fetus Indication Screening for follow-up survey, Anxiety , Depression, Obesity in , History of gestational hypertension, Obesity in , Chronic hypertension affecting . History OB History 2. Para 1 [id number] Maternal Assessment Physical Exam Height 173 cm, 5 ft 8 in. Initial weight 124 kg, 274 lb.Initial BMI 41.66 kg/m?? Method Transabdominal ultrasound examination. View: Suboptimal view: limited byfetal position. Kumar . Number of fetuses: 1 Dating LMP on: 12/26/2024 GA by LMP 24 w + 6 d PETROS by LMP: 10/02/2025 Previous Ultrasound on: 03/01/2025 Type of prior assessment: CRL U/S measurement at prior assessment date 23.0 mm GA by previous U/S 24 w + 4 d PETROS by previous Ultrasound: 10/04/2025 Ultrasound examination on: 06/18/2025 GA by U/S based upon: AC, BPD, Femur, HC GA by U/S 25 w + 5 d PETROS by U/S: 09/26/2025 Assigned: based on the LMP, selected on 05/17/2025 Assigned GA (weeks days) 24 w + 6 d Assigned PETROS: 10/02/2025 General Evaluation Cardiac activity Present. FHR 146 bpm. Presentation: cephalic Placenta: Placental site: anterior, previously documented away fromcervical os Umbilical cord: Cord vessels: 3 vessel cord. Insertion site: documented previously Amniotic fluid: Amount of AF: normal amount. MVP 6.9 cm Biometry Standard BPD 63.0 mm 25w 4d 66% Hadlock OFD 82.4 mm 26w 6d 95% Gavino HC 232.5 mm 25w 2d 45% Hadlock Cerebellum tr 28.3 mm 25w 0d 62% Hill AC 219.1 mm 26w 3d 84% Hadlock Femur 46.6 mm 25w 4d 58% Hadlock Humerus 41.5 mm 25w 0d 46% Gavino HC / AC 1.06 EFW 868 g 83% Hadlock EFW (lb) 1 lb EFW (oz) 15 oz EFW by: Hadlock (FET-QD-YI-FL) Extended Tibia 37.8 mm 24w 2d 27% Gavino Electric Knife Operator 4.7 mm CM 4.4 mm 8% Nicolaides Head / Face / Neck Cephalic index 0.76 27% Nicolaides Nasal bone: present Extremities / Bony Struc FL / BPD 0.74 FL / HC 0.20 FL / AC 0.21 Other Structures FHR 146 bpm Anatomy The following structures appear normal: Head/Neck: Cranium. Lateral ventricles. Choroid plexus. Midline falx.Cavum septi pellucidi. Cerebellum. Cisterna magna. Parenchyma. Vermis. Neck. Face: Lips. Profile. Nose. Nasal bone. Maxilla. Mandible. Orbits. Heart/Thorax: 4-chamber view. Situs. Aortic arch view. Bicaval view.Ductal arch view. Interventricular septum. Great vessels. Cardiac position. Cardiac axis. Cardiac size. Cardiacrhythm. Diaphragm. Abdomen: Stomach. Kidneys. Bladder. Right renal artery. Left renalartery. Extremities/Skeleton: Right upper arm. Right forearm. Right hand. Leftfoot. Skeleton The following structures could not be adequately visualized: Spine: Cervical spine. Thoracic spine. Lumbar spine. Sacral spine. The following structures were documented previously: Heart / Thorax RVOT view. LVOT view. 3-vessel view. 9-dzubdp-xawxyksolpu. Right lung. Left lung. Abdomen Abdom. wall. Cord insertion. Genitals. Extremities / Left upper arm. Left forearm. Left hand. Right upper leg.Right lower leg. Right foot. Left upper leg. Left lower leg. Maternal Structures Uterus Visualized Cervix Suboptimal Right Ovary Not visualized Left Ovary Not visualized Cul de Sac Suboptimal Impression Single live intrauterine . 24w 6d. Normal growth. EFW measures at the 83%, AC measures at the 84%. Amniotic fluid MVP measures 6.9 cm. Recommendations The patient is scheduled in four weeks to complete anatomic survey. Subsequent follow up or other follow up as clinically determined byprimary OB provider unless otherwise specified by [facility]. Results forwarded to ordering provider so they can follow up with thepatient as necessary. Authorizing ProviderResult TypeResult StatusSheila BERMUDEZ ORDERABLES Final Result documented in this encounter Visit Diagnoses Diagnosis Acute palmoplantar pustular psoriasis Other psoriasis Chronic hypertension affecting Severe obesity due to excess calories affecting , antepartum ([facility]) Hypertension affecting in second trimester documented in this encounter Care Teams Team MemberRelationshipSpecialtyStart DateEnd [facility], [address] PCP - GeneralFamily Medicine11/03/24documented as of this encounter
--- OUTSIDE RECORDS SUMMARY | 2025-06-18 14:00 | XMS_ITS | Encounter Summary ---
Author Organization [facility] tem Address [id number] [address] [place] [address] Care Team Providers Care Talent Engineer Name Role Phone Services, [facility] Primary Care Provider Reason for Referral * Medication Prior Authorization - ClosedSpecialtyDiagnoses / ProceduresReferred By ContactReferred To Contact Diagnoses Anxiety disorder affecting , antepartum Sheila Cruz MD [address] [address] Phone: tel: fax: Referral IDStatusReasonStart DateExpiration DateVisits RequestedVisits [id number] Encounter Details DateTypeDepartmentCare Team (Latest Contact Info)Liadifpchyu95/28/2025 2:00 PM EDTTelemedicine Maternal- Medicine at [facility] [address] [place] [phone] Sheila [facility] MD [address] [facility] [address] [address] Chronic hypertension affecting (Primary Dx); 20 weeks gestation of ; Anxiety disorder affecting , antepartum; Acute palmoplantar pustular psoriasis; Severe obesity due to excess calories affecting , antepartum ([facility]) Social History Tobacco UseTypesPacks/DayYears UsedDateSmoking Tobacco: [...] money to get more.Never True05/17/2025Estimated Date of LpopvkhdIsdboimjKsq88/11/2026ased on last menstrual period of 12/26/2024Sex and Gender InformationValueDate RecordedSex Assigned at BirthNot on fileLegal Sex Snjqll3509/30/2022 2:11 PM ESTGender IdentityNot on fileSexual OrientationNot [...] TESTS AND ULTRASOUND REPORTS: Referral records and [facility] chart were reviewed Pertinent Ultrasound findings [...] patient is in complete care of her sharepoint application developer. Patient does have ultrasound and office visit scheduled with us. Thank you for allowing me to participate in the care of Chayo Ramires. If there any questions please do not hesitate to contact us. Sheila Cruz MD Maternal- Medicine [facility] [address] [facility] 1[address] [place] [address] This document was created with AutoMoneyBack technology. Though I make every effort to review the dictation as it is transcribed, on occasion the spoken word can be misinterpreted by the technology leading to inappropriate words, phrases, or sentences. This note is addressed to the requesting provider as a consultation for clinical guidance. Specificmedical abbreviations are occasionally used and those are generally approved by the [place]?Board of?Obstetrics and?Gynecology?as well as?Rama???s abbreviations. The above plan of care was based solely on the diagnoses for which a consultation was requested. ?More frequent testing may be indicated based on her other medical/obstetrical conditions. The management of other or medical conditions is beyond the scope of requested consultation and will c ontinue to be followed by the primary sharepoint application developer or primary care provider. Note to patient: [...] Plan of Treatment DateTypeDepartmentCare Team (Latest Contact Info)Hxederpxvkw20/09/2025 2:00 PM ESTOffice Visit Maternal- Medicine at [facility] [address] [place] [address] Sheila Cruz MD [address] [facility] [address] [place] [address] documented as of this encounter Visit Diagnoses Diagnosis Chronic hypertension affecting - Primary 20 weeks gestation of Anxiety disorder affecting , 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 Severe obesity due to excess calories affecting , antepartum ([facility]) documented in this encounter Care Teams Team MemberRelationshipSpecialtyStart DateEnd [facility], [facility] [address] [place] [place] PCP - GeneralFamily Medicine11/03/24documented as of this encounter
[2025-06-20] VITALS (16 sets, daily range): BP systolic 148–169; BP diastolic 84–105; PULSE 77–91; TEMP 36.6; O2SAT 96–99; BMI 42.9
--- OUTSIDE RECORDS SUMMARY | 2025-06-20 22:09 | XMS_ITS | CCD ---
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 Role Phone Pinky Singh Unavailable Judy Caal Unavailable Unavailable Unavailable Primary Care Provider Unavailabl e Services, [facility] Primary Care Provider Caesar Broderick DO Attending Provider [phone] Davie, Caesar Attending Unavailable Davie, Caesar Admitting Unavailable White DIRECTOR OF GRADUATE ADMISSIONS, June A Unavailable Unavailable ROBBIE LOPEZ Attending Unavailable Services, [facility] Primary Care Provider CAESAR BRODERICK Attending Unavailable DAVIE, CAESAR Attending Unavailable DAVIE, CAESAR Attending Unavailable DAVIE, CAESAR Attending Unavailable DAVIE, CAESAR Attending Unavailable DAVIE, CAESAR Attending Unavailable DAVIE, CAESAR Attending Unavailable DAVIE, CAESAR Attending Unavailable UYEN, ORDY Attending Unavailable UYEN, RODY Attending Unavailable UYEN, RODY Attending Unavailable SERVICES, [facility] Primary Care Unava ilable MILLIE VILLAGRAN Attending Unavailable SERVICES, [facility] Primary Care Unava ilable FRANCIE ABRAMS Attending Unavailable DAVIE, CAESAR R Referring Unavailable SERVICES, [facility] Primary Care Unava ilable DAVIE, CAESAR R Referring Unavailable SERVICES, [facility] Primary Care Unava ilable YORDY CRUZ Attending Unavailable DAVIE, CAESAR R Referring Unavailable SERVICES, [facility] Primary Care Unava ilable DAVIE, CAESAR R Referring Unavailable SERVICES, [facility] Primary Care Unava ilable ANTHONY YORDY Attending Unavailable DAVIE, CAESAR R Referring Unavailable SERVICES, [facility] Primary Care Unava ilable Services, [facility] Primary Care Provider Medications Current Medications MedicationDrug Class(es)DatesSig (Normalized)Sig (Original)amoxicillin 875 mg / clavulanate 125 mg oral tablet (2 sources)Penicillin-class AntibacterialStart: 53-05-0880bydo 1 tablet by mouth twice dailyAmoxicillin-Pot Clavulanate 875-125 mg tablet Active 1 TAB PO Twice daily November 24, 2023 12:00amaspirin 81 mg delayed release oral tablet (4 sources)Platelet Aggregation Inhibitor, Nonsteroidal Anti-inflammatory Drug take 1 tablet by mouth in the morningaspirin 81 mg Take 1 tablet (81 mg total) by mouth in the morning. Activecholecalciferol 0.01 mg oral tablet (20 sources)Vitamin DStart: 28-09-3467iznpqvrwodcgffm 10 mcg (400 unit) tablet 2 tablets (800 Units total) in the morning. 01/26/2024 ActiveStart: 01-26-2024 End: 75-67-5461Ccthuxqmhlyllqz 10 MCG (400 UNIT) chewable tablet 1 (one) time each day at the same time Discontinued (Therapy completed) End: 97-48-2777vfjj 2 tablets by mouth once dailyD-400 10 MCG (400 UNIT) tablet TAKE 2 TABLETS BY MOUTH ONCE DAILY FOR 30 DAYS 03/28/2025 Discontinuedclobetasol propionate 0.0005 mg/mg topical ointment (3 sources)CorticosteroidStart: 05-17-2025 End: 88-10-1341kpcjxdbhcL (TEMOVATE) 0.05 % ointment Indications: Acute palmoplantar pustular psoriasis , Chronic hypertension affecting , 20 weeks gestation of Apply a thin layer to the affected areas twice daily. 30 g 05/17/2025 05/31/2025 ActiveclomiPHENE citrate 50 mg oral tablet (3 sources)Estrogen Agonist/AntagonistStart: 11-12-2024 End: 85-95-9324qvfq 2 tablets by mouth once dailyclomiPHENE (Clomid) 50 MG tablet Indications: Encounter for fertility planning , PCOS (polycystic ovarian syndrome) , Fallopian tube disorder Take 2 tablets (100 mg) by mouth Daily for 5 days 10 tablet 11/12/2024 11/17/2024 Activefluticasone propionate 0.05 mg/actuat metered dose nasal spray (4 sources)CorticosteroidStart: 11-24-2023 End: 39-65-9302kktlzzpnlwb (Flonase) 50 MCG/ACT nasal spray Daily 11/24/2023 04/10/2024 Discontinued (Other)Start: 52-62-0354meix 1 spray(s) nasal route once dailyFluticasone Propionate 50 mcg/actuation spray,suspension Active 2 SPRAY INTRANASAL Daily November 24, 2023 12:00am administer into each nostril magnesium oxide 400 mg oral tablet (15 sources)Start: 03-28-2025 End: 61-27-1445bvsu 1 tablet by mouth once dailymagnesium oxide (Mag-Ox) 400 MG tablet Indications: Second trimester ([facility]) , Acute nonintractable headache, unspecified headache type Take 1 tablet (400 mg) by mouth Daily 30 tablet 6 03/28/2025 04/27/2025 ActivemetFORMIN hydrochloride 500 mg oral tablet (20 sources)BiguanideStart: 31-97-7977jloEXMNLP (Glucophage) 500 mg tablet 1 tablet (500 mg). 05/22/2024 ActiveStart: 04-10-2024 End: 87-09-6678dqua 1 tablet by mouth every twenty-four hours at mealtime metFORMIN XR (Glucophage-XR) 500 MG 24 hr tablet Indications: PCOS (polycystic ovarian syndrome) , Abnormal uterine bleeding (AUB) Take 1 tablet (500 mg) by mouth in the evening. Take with meals Do not crush, chew, or split. 30 tablet 11 04/10/2024 03/01/2025 Discontinued (Therapy completed) End: 69-79-1266gtjk 1 tablet by mouth once daily at breakfastmetFORMIN XR (GLUCOPHAGE XR) 500 mg 24 hr tablet Take 1 tablet (500 mg total) by mouth daily with breakfast. 05/17/2025 DiscontinuedNIFEdipine 30 mg osmotic 24 hr extended release oral tablet (19 sources)Dihydropyridine Calcium Channel BlockerStart: 65-38-8966wphm 2 tablets by mouth every twenty-four hours at bedtimeNIFEdipine XL (PROCARDIA XL) 30 mg 24 hr tablet Indications: Chronic hypertension affecting , 20 weeks gestation of Take 2 tablets (60 mg total) by mouth in the morning and at bedtime. 60 tablet 2 06/18/2025 ActiveStart: 05-30-2025 End: 67-68-7195dgcs 1 tablet by mouth once daily in the morningNIFEdipine XL (Procardia XL) 60 MG 24 hr tablet Indications: Chronic hypertension affecting ([facility]) Take 1 tablet (60 mg) by mouth Daily Take 1 tablet in the am. Do not crush, chew, or split. 30 tablet 3 05/30/2025 05/30/2026 ActiveStart: 05-17-2025 End: 22-45-6087cxzi 1 tablet by mouth every twenty-four hours at bedtime NIFEdipine XL (PROCARDIA XL) 30 mg 24 hr tablet Indications: Chronic hypertension affecting , 20 weeks gestation of Take 1 tablet (30 mg total) by mouth in the morning and at bedtime. 60 tablet 2 05/17/2025 06/18/2025 DiscontinuedStart: 46-19-9631mrcj 1 tablet by mouth once daily Procardia XL 30 MG 24 hr tablet Take 30 mg by mouth Daily 05/17/2025 Active predniSONE 20 mg oral tablet (2 sources)Start: 93-91-1937uhpl 1 tablet by mouth twice dailyPrednisone 20 mg tablet Active 20 MG PO Twice daily 05 26November 24, 2023 12:00amprenatal 115/iron/folic acid ( 19 ORAL) (4 sources)take 1 tablet by mouth in the morningprenatal 115/iron/folic acid ( 19 ORAL) Take 1 tablet by mouth in the morning. Activesertraline 25 mg oral tablet (20 sources)Serotonin Reuptake InhibitorStart: 05-90-5781vdom 1 tablet by mouth in the morningsertraline (ZOLOFT) 25 mg tablet Indications: Anxiety disorder affecting , antepartum Take1 tablet (25 mg total) by mouth in the morning. 30 tablet 1 06/18/2025 ActiveStart: 56-23-7466plmr 1 tablet by mouth in the morningsertraline (ZOLOFT) 50 mg tablet Indications: Anxiety disorder affecting , antepartum Take1 tablet (50 mg total) by mouth in the morning. 30 tablet 1 06/18/2025 ActiveStart: 11-06-2024 End: 10-71-5119laqa 2 tablets by mouth once dailysertraline (Zoloft) 25 MG tablet Take 50 mg by mouth 1 (one) time each day at the same time 11/06/2024 ActiveStart: 11-06-2024 End: 39-17-2927amlt 3 tablets by mouth at bedtimesertraline (ZOLOFT) 25 mg tablet Take 3 tablets (75 mg total) by mouth before bedtime. 11/06/2024 DiscontinuedStart: 11-06-2024 End: 16-66-1167ufhdpvqfns (Zoloft) 25 MG tablet 1 (one) time each day at the same time 11/06/2024 ActiveStart: 08-04-2023 End: 88-81-9058qeyg 1 tablet by mouth once dailysertraline (Zoloft) 50 MG tablet Take 50 mg by mouth Daily 08/04/2023 04/10/2024 Discontinued (Other)sertraline (ZOLOFT) 25 mg tablet Take by mouth daily. Active Completed/Discontinued Medications MedicationDrug Class(es)DatesSig (Normalized)Sig (Original)labetalol hydrochloride 200 mg oral tablet (12 sources)beta-Adrenergic BlockerStart: 05-16-2025 End: 34-69-0879brkf 1 tablet by mouth once at bedtimelabetalol (Normodyne) 200 MG tablet Indications: Second trimester ([facility]HS-HCC) , Gestational hypertension, antepartum ([facility]HS-HCC) TAKE 1 TABLET (200 MG) BY MOUTH IN THE MORNING AND AT BEDTIME 60tablet 2 05/16/2025 05/23/2025 Discontinued (Ineffective)Start: 04-11-2025 End: 96-36-2586kbra 1 tablet by mouth once in the morninglabetalol (Normodyne) 200 MG tablet Indications: Second trimester ([facility]HS-HCC) , Gestational hypertension, antepartum ([facility]HS-HCC) Take 1 tablet (200 mg) by mouth in the morning and 1 tablet (200mg) before bedtime. 60 tablet 04/11/2025 05/11/2025 Active End: 10-96-7533bpux 1 tablet by mouth in the morning, then take 1 tablet by mouth at bedtimelabetaloL (NORMODYNE) 200 mg tablet Take 1 tablet (200 mg total) by mouth in the morning and 1 tablet (200 mg total) before bedtime. 05/17/2025 Discontinuedomeprazole 20 mg delayed release oral capsule (20 sources)Proton Pump InhibitorStart: 01-24-2024 End: 90-94-2119wmdd 1 capsule by mouth in the morningomeprazole (PriLOSEC) [address] capsule Take 20 mg by mouth in the morning. 01/24/2024 03/28/2025 Dis continued Problems Active Problems Problem ClassificationProblemDateDocumented DateEpisodic/ChronicAbdominal pain (3 sources)Pain in female pelvis; Translations: [Pelvic and perineal pain] 55-17-1840EvzolfyjMaebbin disorders (1 source)Anxiety disorder, unspecified; Translations: [Anxiety disorder, unspecified]Onset: 50-19-6983AimenvuGlisbqsucbdtq and procreative management (8 sources)Patient encounter status; Translations: [Encounter for other procreative management]24-25-2853EoeahnooWeusmdoq; including migraine (4 sources)Acute headache; Translations: [Acute nonintractable headache, unspecified headache type]38-03-5963PmolulumDldobtbrwkfc complicating ; childbirth and the puerperium (16 sources)Hypertension complicating ; Translations: [Unspecified maternal hypertension, second trimester]Onset: hronic Hypertension complicating ; childbirth and the puerperium (20 sources)Hypertension AND/OR vomiting complicating childbirth AND/OR puerperium; Translations: [Gestational [-induced] hypertension without significant proteinuria, unspecified trimester]Onset: 04-25-2025 52-63-1954UneznkhlXdhnvnezwgdct and screening for infectious disease (6 sources)Contact with and (suspected) exposure to other viral communicable diseases; Translations: [Contact with or exposure to other viral diseases] EpisodicMenstrual disorders (2 sources)Amenorrhea; Translations: [Amenorrhea, unspecified]01-56-7531Phxwhiv Nutritional deficiencies (14 sources)Vitamin D deficiency; Translations: [Vitamin D deficiency, unspecified]Onset: 312017-97-3078UoefigoCgwv wounds of extremities (2 sources)Laceration without foreign body of right thumb without damage to nail, initial encounter; Translations: [Laceration of finger]Onset: 04-29-2025 EpisodicOther aftercare (2 sources)Postoperative visit; Translations: [Encounter for other specified surgical aftercare]91-81-6255PjgnrplhJftbq and unspecified benign neoplasm (1 source)Pigmented skin lesion ; Translations: [Melanocytic nevi, unspecified] 05-96-8380KygrkanvMzmwu circulatory disease (1 source)H/O: hypertension; Translations: [Personal history of other diseases of the circulatory system]91-98-0106FfidcflsGrhve complications of (5 sources)Maternal obesity complicating , childbirth and the puerperium, antepartum; Translations: [Obesity complicating , unspecified trimester]87-00-8036TbshixsXaqdy complications of (2 sources)Obesity complicating , unspecified trimester; Translations: [Obesity complicating , unspecified trimester]Onset: 37-50-9949Svggeni Other complications of (11 sources)History of pre-eclampsia; Translations: [Supervision of with other poor reproductive or obstetric history, unspecified trimester]Onset: 977866-99-8205AprfmieyPkots complications of (2 sources)Other mental disorders complicating , unspecified trimester; Translations: [Mental disorders of mother, antepartum condition or complication] Onset: 969504-36-7652ItwoizrpKrzei endocrine disorders (20 sources)Polycystic ovary syndrome; Translations: [Polycystic ovarian syndrome]Onset: 142050-65-3312VvzkigiGofwr female genital disorders (4 sources)Abnormal uterine bleeding; Translations: [Abnormal uterine and vaginal bleeding, unspecified]02-74-0429EiunrfzTaouu female genital disorders (2 sources)Abnormal uterine and vaginal bleeding, unspecified; Translations: [Abnormal uterine and vaginal bleeding, unspecified]Onset: 50-47-2514Vcpbhso Other inflammatory condition of skin (5 sources)Pustular psoriasis of palms and soles; 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]08-90-8849OpdxgczRjzzu inflammatory condition of skin (2 sources)Pustulosis palmaris et plantaris; 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]Onset: 43-76-5347TkqzpziRgkwx nutritional; endocrine; and metabolic disorders (2 sources)Morbid (severe) obesity due to excess calories; Translations: [Morbid (severe) obesity due to excess calories]Onset: 10-37-4045OpuouyjMpyek and delivery including normal (14 sources); Translations: [Encounter for supervision of normal , unspecified, unspecified trimester]88-15-2116YnxouuiiHgter screening for suspected conditions (not mental disorders or infectious disease) (2 sources)Alpha-fetoprotein blood test status; Translations: [Encounter for screening for raised alphafetoprotein level]38-61-5242TkzuttiwBqlml upper respiratory infections (1 source)Chronic sinusitis, unspecified; Translations: [Unspecified sinusitis (chronic)]77-77-2499GnoftioBcxto upper respiratory infections (3 sources)Sore throat symptom; Translations: [Acute pharyngitis, unspecified] 05-56-2103TgimcdjfEqvkvqci codes; unclassified (2 sources)History of laparoscopy; Translations: [Other specified postprocedural states]31-12-2473QevekltdQdnmvmum codes; unclassified (1 source)Gestation period, 9 weeks; Translations: [9 weeks gestation of ]49-91-8205PbellmmgZybiwvpd codes; unclassified (2 sources)Gestation period, 13 weeks; Translations: [13 weeks gestation of ]03-80-7409QnffwfriHphsnmqp codes; unclassified (2 sources)Gestation period, 15 weeks; Translations: [15 weeks gestation of ]18-53-4526UtaltaipAewkyyrh codes; unclassified (2 sources)Gestation period, 17 weeks; Translations: [17 weeks gestation of ]15-09-6635UwbltztkSmexczqf codes; unclassified (2 sources)Gestation period, 20 weeks; Translations: [20 weeks gestation of ]26-26-3136JopmrefhHdrjugwp codes; unclassified (2 sources)Gestation period, 22 weeks; Translations: [22 weeks gestation of ]92-14-4203SempcvnjExzkjntx codes; unclassified (2 sources)Gestation period, 21 weeks; Translations: [21 weeks gestation of ]03-85-6807XnostvlyLuzewgpq codes; unclassified (2 sources)Gestation period, 23 weeks; Translations: [23 weeks gestation of ]15-31-5564CyavlymuMdqtwnmr codes; unclassified (1 source)20 weeks gestation of ; Translations: [20 weeks gestation of ]Onset: 39-57-1099NzxbdxnjGxblhgjasepw (1 source)gHTNOnset: 05-17-2025 Past or Other Problems Problem ClassificationProblemDateDocumented DateEpisodic/ChronicCardiac dysrhythmias (8 sources)Palpitations; Translations: [Palpitations]Onset: 124457-45-0079 EpisodicNonspecific chest pain (3 sources)Chest pain, unspecified; Translations: [Chest pain]Onset: 11-03-2024 EpisodicOther female genital disorders (20 sources)Fallopian tube disorder; Translations: [Noninflammatory disorder of ovary, fallopian tube and broadligament, unspecified]Onset: 777670-75-7541 EpisodicUnclassified (2 sources)Patient encounter bhawkk40-42-4490Mgikcxmjnvgo (1 source)Onset: 074478-44-2057Gjmlsifqncos (1 source)Anxiety disorder affecting , lwjhlziuwb81-90-7427Ohrntwq tract infections (3 sources)Acute cystitis; Translations: [Acute cystitis without hematuria] Onset: 963221-49-5104VfypgpueHcget infection (1 source)COVID-19 Results Test NameValueInterpretationReference RangeFacilityUrinalysis macro (dipstick) panel (U)on 96-91-8773Mfrbmvrgo, UANegativeNegative - 4(70) +++ mg/dLNOMS HealthcareBlood, UANegativeNegative [...] ++++ mg/dLNOMS HealthcareInterpretation and review of laboratory resultsNormalNOTN Healthcare Ketones, UANegativeNegative - 160(16) ++++ mg/dLNOMS HealthcareLeukocytes, UA NegativeNegative - 500+++ [place]aleigh/mcLNOMS HealthcareNitrite, UANegativeNegative - PositiveNOMS HealthcarepH, UA65 - 9NOMS HealthcareProtein, UANegativeNegative - 2000(20) ++++ mg/dLNOMS HealthcareSpec Grav, UA1.0251 - 1.03NOMS Healthcare Urobilinogen, UA0.20.2 - 12 mg/dLNOMS HealthcareNOMS HealthcareAFP, SERUM, OPEN SPINA BIFIDAon 06-86-3629ZUT MOM0.85.NOMS HealthcareAFP VALUE38.2 ng/mL.NOMS HealthcareCOMMENT:Comment.[facility] HealthcareComment on above:Gema Ortez, Ph.D., [facility] Director References: Available Upon Request. Multiples Of Median Cutoffs For AFP Elevations Kumar 2.5 Black 2.8 IDD 2.0 Twins 4.5 Abbreviation Definitions IDD - Insulin Dep Diabetes OSBR - Open Spina Bifida Risk For further inquiries contact [facility] at [phone]. This test was developed and its performance characteristics determined by [employer]. It has not been cleared or approved by the Food and Drug Administration. Performed at: [facility] [address], [place], [place] [id number] Signaling Design Engineer: Jesus Saleh [facility], Phone: [phone] GEST. AGE ON COLLECTION DATE21.1. weeksNOMS HealthcareGESTAT. AGE BASED ONLMP. [facility] HospitalComment on above:Recalculations are not recommended when gestational dating by LMP and ultrasound are within 10 days. INSULIN DEP DIABETESNo.[facility] HospitalINTERPRETATIONComment.[facility] Comment on above:Interpretation: Screen Negative This [...] Customer Services to discuss available options. The [employer] recommends amniocentesis be offered to women age 35 and older. MATER[facility] EDD33.5. yr[facility] HealthcareMULTIPLE GESTATIONNo.[facility] OSBR RISK 1 [id number].[facility] HospitalRACECaucasian.[facility] HospitalRESULTSReport. [facility] HospitalTEST RESULTS:Negative.[facility] HospitalNfdvsrnddsPLXGCH224. lbsNOTN HealthcareN N LMP [id number] 2 9 N 1 282 N N N N N White/ CLINISYNCPutnam County Memorial HospitalUnlisted Lab Teston 78-40-8745Mgete Free Cell Dnalow riskMercy Health Springfield Regional Medical Center Health SystemProSt. Mary'S [facility] SystemB-TYPE NATRIURETIC PEPTIDEon 22-00-4802Eufxafhzrvr peptide B (Bld) [Mass/Vol]46 pg/mLNormal<=100ProMarion Hospitalca Veterans Health AdministrationComment on above:Performed By: #### BNP #### [facility] ([facility]) [address] [place] [address] VIRUrinalysis macro (dipstick) panel (U)on 69-25-5703Rqxsmznxf, UANegativeNegative - 4(70) +++ mg/dLNOTN HealthcareBlood, UANegativeNegative - 50 Surjit/mcLNOMS HealthcareClarity, UAClearNOMS HealthcareColor, UAYellowNOMS HealthcareGlucose, UANegativeNegative - 2000(110) ++++ mg/dLCEDAR CITY HOSPITAL Healthcare Interpretation and review of laboratory resultsNormalNOMS HealthcareKetones, UA NegativeNegative - 160(16) ++++ mg/dLPutnam County Memorial HospitalLeukocytes, UANegative Negative - 500+++ [place]aleigh/mcLNOBarnes-Jewish Saint Peters HospitalNitrite, UANegativeNegative - Positive NOMS HealthcarepH, UA65 - 9NOTN HealthcareProtein, UANegativeNegative - 2000(20) ++++ mg/dLCEDAR CITY HOSPITAL HealthcareSpec Grav, UA1.0151 - 1.03NOTN HealthcareUrobilinogen, UA1.00.2 - 12 mg/dLHaywood Regional Medical CenterTBH TOTAL PROTEIN 24 HOUR URINEon 67-11-0680LHNPO PROTEIN URINE RANDOM<6.0NINF - 11.9 mg/dLPutnam County Memorial Hospital TOTAL VOLUME 24 HOUR KRVYV2076hJ/24hrPutnam County Memorial HospitalCLINISYNCNOMS Samaritan HospitalALL CBC WITH AUTO DIFFon 91-65-6009MYKSMDSYH ABSOLUTE DBVB3JEULPutnam County Memorial Hospital Basophils/100 WBC (Bld)0.2 %0.2 - 2.0 %[facility] HospitalEosinophils/100 WBC (Bld) 2.9 %0.9 - 7.0 %[facility] HospitalErythrocyte distribution width (RBC) [Ratio]12.3 %11.0 - 15.0 %[facility] HospitalIMMATURE GRANULOCYTES ABS AUTO0.09HighPutnam County Memorial HospitalImmature granulocytes/100 WBC (Bld)0.7 %High0.0 - 0.5 %[facility] Interpretation and review of laboratory resultsAbnormSelect Specialty Hospital - [facility]rie LYMPHOCYTES ABSOLUTE VHGB5IYGUPutnam County Memorial HospitalLymphocytes/100 WBC (Bld)15.4 %Low20.5 - 60.0 %[facility] CenterH (RBC) [Entitic mass]31.3 pg26.7 - 34.0 pgSoutheast Missouri Community Treatment CenterHC (RBC) [Mass/Vol]33.6 g/dL29.9 - 35.2 g/dLSoutheast Missouri Community Treatment CenterV (RBC) [Entitic vol]93.2 fL81.0 - 99.0 fLPutnam County Memorial HospitalMONOCYTES ABSOLUTE AUTO0.5Put[facility] Memorial HospitalMonocytes/100 WBC (Bld)4.1 %1.7 - 12.0 %[facility] HospitalNEUTROPHILS ABSOLUTE AUTO9.9HighPutnam County Memorial HospitalNeutrophils/100 WBC (Bld)76.7 %High43.0 - 75.0 %[facility] HealthcarePlatelet mean volume (Bld) [Entitic vol]10.2 fL9.5 - 13.5 fLNOMS HealthcareTBH EO #0.4NOMS HealthcareTBH [id number] HealthcareTBH RBC3.8 LowNOMS HealthcareTBH IEM98NgdnNAKP HealthcareCLINISYNCAPTTon 08-32-0347tDEE Coag (Bld) [Time]26.5 [facility] without diffon 04-17-2025 Platelets (Bld) [#/Vol]251 10*3/uLUniversity Hospitals Elyria Medical CenterRb Mcv (Fl) By Automated Count93.2PUniversity Hospitals Geauga Medical CenterLaboratory - Hematology and Cell countson 12-97-1465Hrgoxpcmko (Bld) [Volume fraction]35.4 %[facility] Hemoglobin (Bld) [Mass/Vol]11.9 g/dLNOTN HealthcareNo Panel Informationon 00-75-5540OICW HealthcareUrinalysis macro (dipstick) panel (U)on 04-11-2025 Bilirubin, UANegativeNegative - 4(70) +++ mg/dLNOMS HealthcareBlood, UANegative Negative - 50 Surjit/mcLNOTN HealthcareClarity, UAClearNOMS HealthcareColor, UA YellowNOMS HealthcareGlucose, UANegativeNegative - 2000(110) ++++ mg/dLNOTN HealthcareInterpretation and review of laboratory resultsNormalNOTN Healthcare Ketones, UANegativeNegative - 160(16) ++++ mg/dLNOTN HealthcareLeukocytes, UA NegativeNegative - 500+++ [place]/mcLNOTN HealthcareNitrite, UANegativeNegative - PositiveNOMS HealthcarepH, UA65 - 9NOMS HealthcareProtein, UANegativeNegative - 2000(20) ++++ mg/dLNOTN HealthcareSpec Grav, UA1.0151 - 1.03NOTN Healthcare Urobilinogen, UA1.00.2 - 12 mg/dLNOTN HealthcareNOTN HealthcareUrinalysis macro (dipstick) panel (U)on 05-27-9416Dlnaxyyub, UANegativeNegative - 4(70) +++ mg/dL [facility] HealthcareBlood, UANegativeNegative - 50 Surjit/mcLCEDAR CITY HOSPITAL HealthcareClarity, UA ClearNOTN HealthcareColor, UAYellowNOTN HealthcareGlucose, UANegativeNegative - 2000(110) ++++ mg/dLCEDAR CITY HOSPITAL HealthcareInterpretation and review of laboratory resultsAbnormalCEDAR CITY [facility]OSPITAL HealthcareKetones, UANegativeNegative - 160(16) ++++ mg/dL [facility] HospitalLeukocytes, UAPositiveNegative - 500+++ [place]/mcLCEDAR CITY HOSPITAL Healthcare Comment on above:2+Nitrite, UANegativeNegative - PositiveNOTN HealthcarepH, UA65 - 9NOMS HealthcareProtein, UANegativeNegative - 2000(20) ++++ mg/dLCEDAR CITY HOSPITAL HealthcareSpec Grav, UA1.021 - 1.03NOTN HealthcareUrobilinogen, UA1.00.2 - 12 mg/dLPutnam County Memorial HospitalNOTN HealthcareALL CBC WITH AUTO DIFFon 55-05-0457XKARXGLNW ABSOLUTE AUTO0.1NOMS HealthcareBasophils/100 WBC (Bld)0.5 %0.2 - 2.0 %NOMCarondelet HealthEosinophils/100 WBC (Bld)4 %0.9 - 7.0 %[facility] HospitalErythrocyte distribution width (RBC) [Ratio]12.2 %11.0 - 15.0 %NOMCarondelet HealthIMMATURE GRANULOCYTES ABS AUTO0.08HighPutnam County Memorial HospitalImmature granulocytes/100 WBC (Bld) 0.6 %High0.0 - 0.5 %[facility] [facility] HealthcareInterpretation and review of laboratory resultsAbnoMount Nittany Medical CenterLYMPHOCYTES ABSOLUTE AUTO2.6NOBarnes-Jewish Saint [facility] Lymphocytes/100 WBC (Bld)18.4 %Low20.5 - 60.0 %[facility] CenterH (RBC) [Entitic mass]31.5 pg26.7 - 34.0 pgSoutheast Missouri Community Treatment CenterHC (RBC) [Mass/Vol]34.1 g/dL29.9 - 35.2 g/dLSoutheast Missouri Community Treatment CenterV (RBC) [Entitic vol]92.4 fL81.0 - 99.0 fLPutnam County Memorial HospitalMONOCYTES ABSOLUTE AUTO0.6Putnam County Memorial HospitalMonocytes/100 WBC (Bld)4.3 % 1.7 - 12.0 %NOMCarondelet HealthNEUTROPHILS ABSOLUTE AUTO10.1HighPutnam County Memorial Hospital Neutrophils/100 WBC (Bld)72.2 %43.0 - 75.0 %NOM HealthcarePlatelet mean volume (Bld) [Entitic vol]10.2 fL9.5 - 13.5 fLNOBarnes-Jewish Saint Peters HospitalTBH EO #0.6NOTN Healthcare TBH OPZ553VFUXThe Rehabilitation Institute of [facility] RBC3.94LowNOThe [facility] WBC13.9HighNOBarnes-Jewish Saint Peters HospitalCLINISYNCCBC without diffon 14-04-0691Pwvxdbzlm (Bld) [#/Vol]261 10*3/uLUniversity Hospitals Elyria Medical CenterRb Mcv (Fl) By Automated Count92.4[facility] Medical CenterDrug Screen, Urineon 96-82-4720Qjousacaurv/MethamphetamineNegative [facility] Medical CenterBarbituratesNegativeUniversity Hospitals Ely[facility] Medical Center BenzodiazepinesNegativeUniversity Hospitals Elyria Medical CenterCocaine MetaboliteNegative [facility] Medical CenterMethadoneNegativeUniversity Hospitals Elyria Medical CenterOpiatesNegative [facility] Medical CenterOxycodoneNegativeUniversity Hospitals Elyria Medical CenterPhencyclidine NegativeUniversity Hospitals Elyria Medical CenterThc Marijuana, UrineNegativeUniversity Hospitals Elyria Medical CenterHBV surface Ag IA Qlon 15-84-7897Osyckjegi B Surface AntigenNegative [facility] Medical CenterHCV Ab IA Qlon 61-62-8863YCB Ab Ql (S)Non-Reactive [facility] Medical CenterHIV 1+2 Ab+HIV1 p24 Ag IA Qlon 80-59-8392DHV 1&2 AB/AG Non-ReactiveUniversity Hospitals Elyria Medical CenterHemoglobin A1con 23-99-1006EvW0k (Bld) [Mass fraction]5.1 %4.0 - 6.0 %[facility] Medical CenterLaboratory - Hematology and Cell countson 63-83-3243Fviirznhxe (Bld) [Volume fraction]36.4 %[facility] Hemoglobin (Bld) [Mass/Vol]12.4 g/dLPutnam County Memorial HospitalNo Panel Informationon 34-44-5719JQEC HealthcareRubella IGG immune statuson 75-01-9639Cgoqvpb immune IgGIMMUNEUniversity Hospitals Elyria Medical CenterT. pallidum IgG+IgM IA Ql (S)Ordered By: Christina Bertrand on 91-66-1516RyiijyqkEdb-ReactiveProMedica Health SystemType and screenon 43-21-3502Htu/Rh(D)PositiveUniversity Hospitals Elyria Medical CenterHCG ( test) Ql (U)on 13-89-2587Nlvicvxwwhxbup and review of laboratory resultsAbnormalCED[facility] Preg Test, UrPositiveNegativeNOMS HealthcareNOMS HealthcareUS OB TRANSVAGINALon 66-58-2223TQ OB TRANSVAGINALFINDINGS: A single intrauterine gestational sac [...] No LMP recorded.Urinalysis macro (dipstick) panel (U)on 93-94-6221Mkuzoitma, UA NegativeNegative - 4(70) +++ mg/dLNOMS HealthcareBlood, UANegativeNegative - 50 Surjit/mcLNOMS HealthcareClarity, UAClearNOMS HealthcareColor, UAYellowNOMS HealthcareGlucose, UANegativeNegative - 2000(110) ++++ mg/dLNOMS Healthcare Interpretation and review of laboratory resultsNormSelect Specialty Hospital - ErieKetones, UA NegativeNegative - 160(16) ++++ mg/dLNOMS HealthcareLeukocytes, UANegative Negative - 500+++ Kaleigh/mcLNOTN HealthcareNitrite, UANegativeNegative - Positive NOMS HealthcarepH, UA75 - 9NOMS HealthcareProtein, UANegativeNegative - 2000(20) ++++ mg/dLNOTN HealthcareSpec Grav, UA1.0051 - 1.03NOMS HealthcareUrobilinogen, UA0.20.2 - 12 mg/dLNOBarnes-Jewish Saint Peters HospitalNOTN HealthcareALL PROGESTERONEon 01-18-2025 PROGESTERONE8.7 ng/mL.[facility] HealthcareComment on above:Follicular phase 0.1 - 0.9 Luteal phase 1.8 - 23.9 Ovulation phase 0.1 - 12.0 First trimester 11.0 - 44.3 Second trimester 25.4 - 83.3 Third trimester 58.7 - 214.0 Postmenopausal 0.0 - 0.1 Performed at: [facility] [address] [id number] Signaling Design Engineer: Yobany Blount PhD, Phone: [phone] [facility] HospitalPATHOLOGY REQUEST FOR LAB CORPon 89-40-9419EEJJIKMIJ REQUEST FOR LAB [facility]ITALNOBarnes-Jewish Saint [facility] HospitalComment on above:See report. Scanned copy available in EMR.SKIN SPECIMENFIRVA hospital PROGESTERONEon 13-69-8052GRSZAKEIHEGD12.9 ng/mL.[facility] HealthcareComment on above:Follicular phase 0.1 - 0.9 Luteal phase 1.8 - 23.9 Ovulation phase 0.1 - 12.0 First trimester 11.0 - 44.3 Second trimester 25.4 - 83.3 Third trimester 58.7 - 214.0 Postmenopausal 0.0 - 0.1 Performed at: [facility] [address] [id number] Signaling Design Engineer: Yobany Blount PhD, Phone: [phone] [facility] HospitalPathology Request for Lab Corpon 35-83-5585Rpehknlmp Request for Lab [facility] Physician GroupComment on above:Order Comment: SKIN SPECIMENResult Comment: See report. Scanned copy available in EMR. PERFORMED BY: [place] [address] [place] [address] PATHOLOGIST VENDOR MANAGEMENT ASSOCIATE ANAHI TRAN M.D.Performed By: #### PATH TO [facility] #### [facility] [address] [place] [address] SKYLAP,APTIMA HPV,AGE GDLNon 78-78-7341MXD GDLN ACOG TESTING Note.NOMS HealthcareComment on above:TESTS RESULT FLAG UNITS REF RANGE LAB Clinician Provided Cytology Information Source.............Cervix;Endocervix No. of containers..01 ThinPrep Vial Age Algo ACOG Marjorie... FLAG LEGEND: L-Low Normal,H-High Normal,LL-Alert Low,HH-Alert High <-Panic Low,>-Panic High,A-Abnormal,AA-Critical Abnormal Performed at: 01 =[address] [address] Vonnie Woodard MD, HPV APTIMANegativeNegativeNOMS HealthcareComment on above:This nucleic acid amplification test detects fourteen high- risk HPV types (16,18,31,33,35,39,45,51,52,56,58,59,66,68) without differentiation. Performed at: =[address] [id number] Signaling Design Engineer: Vonnie Woodard MD, Phone: [phone] Performed at: [address] [id number] Signaling Design Engineer: Vonnie Woodard MD, Phone: [phone] IGP, APTIMA HPV, RFX 16/18,45Note.NOMS HealthcareComment on above:TESTS RESULT FLAG UNITS REF RANGE LAB DIAGNOSIS: 02 NEGATIVE FOR INTRAEPITHELIAL LESION OR MALIGNANCY. Specimen adequacy: 02 Satisfactory for evaluation. Endocervical and/or squamous metaplastic cells (endocervical component) are present. Performed by: 02 Quiana Vyas, Lowerator Operator ([facility]) . 02 Note: Note 02 The Pap [...] High,A-Abnormal,AA-Critical Abnormal Performed at: 02 [address] [facility] [address] [place] [address] Vonnie Woodard MD, BRUSH-SPATULA CERVIX ENDOCERVIX CLINISYNCNOMS Samaritan HospitalALL PROGESTERONEon 29-08-9446YUCFTUURAALB56.2 ng/mL.[facility] HealthcareComment on above:Follicular phase 0.1 - 0.9 Luteal phase 1.8 - 23.9 Ovulation phase 0.1 - 12.0 First trimester 11.0 - 44.3 Second trimester 25.4 - 83.3 Third trimester 58.7 - 214.0 Postmenopausal 0.0 - 0.1 Performed at: [facility] [address] [id number] Signaling Design Engineer: Yobany Blount PhD, Phone: [phone] [facility] AND AUTO DIFFon 51-40-0067BLDNBZSG BASOPHIL0.1 X10E9/LNormal0.0-0.2ProMedica [facility] University Children'S HospitalComment on above:Performed By: #### LUKAS TY, , 59883-4, THYR #### [facility] ([id number]) [address] [place] [address] 87983OMJFZJMR NEUTROPHIL6.9 X10E9/LHigh1.5-6.6ProQuail Creek Surgical HospitalComment on above:Performed By: #### LUKAS TY, , 89649-9, THYR #### [facility] ([id number]) [address] [place] [address] 77885Npoeyhzad/100 WBC (Bld)1.1 %NormalProQuail Creek Surgical Hospital Comment on above:Performed By: #### LUKAS TY, , 26277-6, THYR #### [facility] ([id number]) [address] [place] [address] 69631Pkmfxvigafr (Bld) [#/Vol]0.3 10*3/uLNormal0.0-0.4[facility] City Medical CenterComment on above:Performed By: #### LUKAS TY, , 77899-2, THYR #### [facility] ([id number]) [address] [place] [address] 91491Euknmtdnugi/100 WBC (Bld)2.3 %NormalTrinity Health System Twin City Medical Center Comment on above:Performed By: #### LUKAS TY, 44279-2, 42975-0, THYR #### [facility] ([id number]) [address] [place] [address] 25908Waszkofplgg distribution width (RBC) [Ratio]12.6 %Normal 11.5-15.0Tr[facility] City Medical CenterComment on above:Performed By: #### KARSON, LUKAS, , 43147-3, THYR #### [facility] ([id number]) [address] [place] [address] 18279Flxjobcjek (Bld) [Volume fraction]40.4 %Ovrunw94-17PaxBukzsiQuail Creek Surgical HospitalComment on above:Performed By: #### LUKAS TY, , 06222-0, THYR #### [facility] ([id number]) [address] [place] [address] 42903Eoquipteer (Bld) [Mass/Vol]13.7 g/nVWrlumi62.7-15.5PMartins Ferry HospitalComment on above:Performed By: #### LUKAS TY, , 96913-2, THYR #### [facility] ([id number]) [address] [place] [address] 27715Vdmgxxsqkue (Bld) [#/Vol]3.6 10*3/uLHigh1.0-3.5PMartins Ferry HospitalComment on above:Performed By: #### CBCGavin CMP, , 92227-8, THYR #### [facility] ([id number]) [address] [place] [address] 91393Lwnykwltmfm/100 WBC (Bld)31.6 %NormalTrinity Health System Twin City Medical Center Comment on above:Performed By: #### CBCGavin, CMP, , 91192-6, THYR #### [facility] ([id number]) [address] [place] [address] 35935CKN (RBC) [Entitic mass]30.9 grOgbxcu36-90GsqIxfxdkQuail Creek Surgical HospitalComment on above:Performed By: #### CBCA, CMP, 60585-3, 41036-5, THYR #### [facility] ([id number]) [address] [place] [address] 30373ZFUG (RBC) [Mass/Vol]34.0 g/zLDpcpbn75-42XckZbvmjsQuail Creek Surgical HospitalComment on above:Performed By: #### CBCA, CMP, 98832-8, 44113-8, THYR #### [facility] ([id number]) [address] [place] [address] 92027QBG (RBC) [Entitic vol]91 xEYqplgq57-221XikJdbeyz Fremont HospitalComment on above:Performed By: #### CBCA, CMP, 80863-6, 44755-4, THYR #### [facility] ([id number]) [address] [place] [address] 12654Pmuhadnfx (Bld) [#/Vol]0.6 10*3/uLNormal0-0.9Tr[facility] City Medical CenterComment on above:Performed By: #### CBCA, CMP, 22131-0, 88566-9, THYR #### [facility] ([id number]) [address] [place] [address] 16438Ryxejdnip/100 WBC (Bld)5.4 %NormalTrinity Health System [facility] City Medical Center Comment on above:Performed By: #### CBCA, CMP, 78407-7, 33877-9, THYR #### [facility] ([id number]) [address] [place] [address] 47167Xpketweagxb/100 WBC (Bld)59.6 %NormalTrinity Health System [facility] Comment on above:Performed By: #### KARSON, CMP, 84608-3, 22428-5, THYR #### [facility] ([id number]) [address] [place] [address] 09008Qiafhaqw mean volume (Bld) [Entitic vol]7.9 fLNormal7-12 [facility] Medical CenterComment on above:Performed By: #### CBCGavin, CMP, - 9, 72541-1, THYR #### [facility] ([id number]) [address] [place] [address] 66217Tqcmyraya (Bld) [#/Vol]346 10*3/dTBnqijl941-874HfxPrwmrs Fremont HospitalComment on above:Performed By: #### KAROSN, CMP, , 44358-3, THYR #### [facility] ([id number]) [address] [place] [address] 02768MJU COUNT4.44 X10E12/LNormal3.80-5.20[facility] Comment on above:Performed By: #### KARSON, CMP, , 41391-2, THYR #### [facility] ([id number]) [address] [place] [address] 44934EMV (Bld) [#/Vol]11.5 10*3/uLHigh4.0-11.0[facility] City Medical CenterComment on above:Performed By: #### CBCGavin, CMP, 36998-5, 11176-2, THYR #### [facility] ([id number]) [address] [place] [address] 86883APFDPFNAQOQYX METABOLIC PANELon 96-08-8398Mhnteys [Mass/Vol]4.0 g/dLNormal3.2-5.3PMartins Ferry HospitalComment on above:Performed By: #### CBCGavin, CMP, 52172-3, 29527-5, THYR #### [facility] ([id number]) [address] [place] [address], [place] [address]YXV [Catalytic activity/Vol]50 U/VRooriu77-373UfmLclrlbQuail Creek Surgical HospitalComment on above:Performed By: #### KARSON, LUKAS, 94000-5, 84156-9, THYR #### [facility] ([id number]) [address] [place] [address], [place] [address]MEM [Catalytic activity/Vol]19 U/LNormal0-31PMartins Ferry HospitalComment on above:Performed By: #### KARSON, LUKAS, 01485-1, 46828-0, THYR #### [facility] ([id number]) [address] [place] [address] [place] [address]Qmagp gap [Moles/Vol]11 mmol/LNormal5-15ProQuail Creek Surgical HospitalComment on above:Performed By: #### LUKAS TY, 78254-5, 12823-9, THYR #### [facility] ([id number]) [address] [place] [address] [place] [address]BQQ [Catalytic activity/Vol]18 U/LNormal0-41ProQuail Creek Surgical HospitalComment on above:Performed By: #### LUKAS TY, 31921-0, 87121-7, THYR #### [facility] ([id number]) [address] [place] [address] 92714Gichfyadx [Mass/Vol]0.4 mg/dLNormal0.3-1.2PMartins Ferry HospitalComment on above:Performed By: #### KARSON, LUKAS, 28167-2, 84783-0, THYR #### [facility] ([id number]) [address] [place] [address], [place] [address]Ggmzsfq [Mass/Vol]9.4 mg/dLNormal8.5-10.5PMartins Ferry HospitalComment on above:Performed By: #### LUKAS TY, 54546-8, 36447-2, THYR #### [facility] ([id number]) [address] [place] [address] 22825Bhbtaecw [Moles/Vol]106 mmol/DThtimz97-361SbsNpehyiTrinity Health System Twin City Medical CenterComment on above:Performed By: #### LUKAS TY, 91490-5, 28324-2, THYR #### [facility] ([id number]) [address] [place] [address] 82085AY6 [Moles/Vol]23 mmol/PRrdwsb98-80DlaZhhhgeMartins Ferry Hospital Comment on above:Performed By: #### LUKAS TY, 14508-4, 81537-9, THYR #### [facility] ([id number]) [address] [place] [address] 75281Feennfjiiq [Mass/Vol]0.76 mg/dLNormal0.40-1.00[facility] Medical CenterComment on above:Result Comment: METHOD TRACEABLE TO IDMS STANDARD Performed By: #### LUKAS TY, 71417-4, 33197-1, THYR #### [facility] ([id number]) [address] [place] [address] 29571hRPA (CKD-EPI) NON-RACE DEPENDENT>90Normal>59ProQuail Creek Surgical HospitalComment on above:Result Comment: Reported eGFR is based on the CKD-EPI 2021 equation that does not use a race coefficient.Performed By: #### LUKAS TY, 78399-9, 10716-7, THYR #### [facility] ([id number]) [address] [place] [address] 68495Vxvrzkm [Mass/Vol]114 mg/nLWxmv22-89OadKtzfojTrinity Health System [facility] Comment on above:Performed By: #### LUKAS TY, 36271-3, 44577-3, THYR #### [facility] ([id number]) [address] [place] [address] 97842Sywlntccg [Moles/Vol]4.1 mmol/LNormal3.5-5.0ProQuail Creek Surgical HospitalComment on above:Performed By: #### LUKAS YT, 71759-0, 58191-3, THYR #### [facility] ([id number]) [address] [place] [address] 66020Ppxqpkf [Mass/Vol]7.3 g/dLNormal6.0-8.0ProQuail Creek Surgical HospitalComment on above:Performed By: #### LUKAS TY, 06000-8, 23252-2, THYR #### [facility] ([id number]) [address] [place] [address] 56898Rtmnfu [Moles/Vol]140 mmol/CAsljfs071-688LrcXsrmsd Fremont HospitalComment on above:Performed By: #### LUKAS TY, 03208-0, 61132-0, THYR #### [facility] ([id number]) [address] [place] [address] 61819Qtmf nitrogen [Mass/Vol]13 mg/dLNormal5-23ProQuail Creek Surgical HospitalComment on above:Performed By: #### LUKAS TY, 57227-6, 14898-0, THYR #### [facility] ([id number]) [address] [place] [address] 08208Gfnmdi D-dimer DDU (PPP) [Mass/Vol]on 11-04-2024D DIMER<150 Normal<255ProQuail Creek Surgical HospitalComment on above:Result Comment: Results <255 ng/mL DDU: The presence of a VTE can safely be excluded with a negative D-Dimer result and Wells score. A negative result doesn't exclude the possibility of DIC. The test be repeated along with other diagnostic tests if the patient's symptoms persist or worsen. [email or web address] By: #### LUKAS TY, 61509-6, 92837-1, THYR #### [facility] ([id number]) [address] [place] [address] 89168GOP ( test) Ql (U)on 96-92-1093Dnju HCG ( test) Ql (U)NegativeNormalNEGProQuail Creek Surgical HospitalComment on above: Performed By: #### 2106-3 #### [facility] ([id number]) [address] [place] [address] 22226HQJGKGBPOwu 20-65-4320Zepxfrhxv [Mass/Vol]2.3 mg/dLNormal 1.8-2.6ProQuail Creek Surgical HospitalComment on above:Performed By: #### LUKAS TY, , 12133-2, THYR #### [facility] ([id number]) [address] [place] [address] 08929ODUAGQC PROFILEon 30-10-7206Plar T4 [Mass/Vol]0.88 ng/dLNormal 0.61-1.60[facility] Medical CenterComment on above:Performed By: #### LUKAS TY, , 41213-9, THYR #### [facility] ([id number]) [address] [place] [address] 19533YIY8.78 uIU/mLNormal0.49-4.67ProQuail Creek Surgical HospitalComment on above:Performed By: #### LUKAS TY, 06555-4, 53051-3, THYR #### [facility] ([id number]) [address] [place] [address] 45509HJS MACROSCOPIC NURon 81-59-5222GEIHGBGXK NURNegativeNormalNEG ProMSt. John's Regional Medical CenterComment on above:Performed By: #### NUM #### [facility] ([id number]) [address] [place] [address] 74537RRYMY/HGB NURTraceAbnormalNEGTrinity Health System Twin City Medical CenterComsheridan community hospital on above:Performed By: #### NUM #### [facility] ([id number]) [address] [place] [address] 54182HGSYBPS NURNegativeNormalNEGTrinity Health System Twin City Medical CenterComment on above:Performed By: #### NUM #### [facility] ([id number]) [address] [place] [address] 93232AFBSEEN NURNegativeNormalNEGTrinity Health System Twin City Medical CenterComsheridan community hospital on above:Performed By: #### NUM #### [facility] ([id number]) [address] [place] [address] 63101RMLASZUWJ ESTERASE NURSmallAbnormalNEGTrinity Health System Twin City Medical CenterComment on above:Performed By: #### NUM #### [facility] ([id number]) [address] [place] [address] 37830LAMGSQO NURNegativeNormalNEGTrinity Health System Twin City Medical CenterComsheridan community hospital on above:Performed By: #### NUM #### [facility] ([id number]) [address] [place] [address] [place] 85[address]YL NUR6.3Gqzlnm8.0-8.5ProMedica [facility] University Children'S HospitalComment on above:Performed By: #### NUM #### [facility] ([id number]) [address] [place] [address] 50118KVCKQKC NURNegativeNormalNEGProQuail Creek Surgical HospitalComsheridan community hospital on above:Performed By: #### NUM #### [facility] ([id number]) [address] [place] [address] [place] [address]AOGXCZLO GRAVITY NUR1.263Uvvaqu7.003-1.035ProQuail Creek Surgical HospitalComment on above:Performed By: #### NUM #### [facility] ([id number]) [address] [place] [address] 99185XKASUOGPNHQW NUR0.2 eu/dLNormal<1.1PMartins Ferry Hospital Comment on above:Performed By: #### NUM #### [facility] ([id number]) [address] [place] [address] 27449EY CHEST 1 VWon 32-80-2523AH CHEST 1 VWXR CHEST 1 VW History: Palpitations Exam/Technique: Portable upright AP chest Comparison: 11/12/2022 Findings: There is no active pulmonary or pleural disease displayed. Cardiac and mediastinal contours appear within normal limits on this AP projection. IMPRESSION: No evidence of active pulmonary disease. Finalized by Tres Giron MD on 11/04/2024 1:02 AMNormalSumma Health PROGESTERONEon 17-77-9955VSTVVPXCVAZA70.8 ng/mL.[facility] Comment on above:Follicular phase 0.1 - 0.9 Luteal phase 1.8 - 23.9 Ovulation phase 0.1 - 12.0 First trimester 11.0 - 44.3 Second trimester 25.4 - 83.3 Third trimester 58.7 - 214.0 Postmenopausal 0.0 - 0.1 Performed at: [employer] [id number] Signaling Design Engineer: Yobany Blount PhD, Phone: [phone] [facility] HOSPITALDigbySaint Luke's [facility] PROGESTERONEon 89-15-0610ICBAFRYELMYX94.3 ng/mL.[facility] HospitalComment on above:Follicular phase 0.1 - 0.9 Luteal phase 1.8 - 23.9 Ovulation phase 0.1 - 12.0 First trimester 11.0 - 44.3 Second trimester 25.4 - 83.3 Third trimester 58.7 - 214.0 Postmenopausal 0.0 - 0.1 Performed at: [facility] [address] [id number] Signaling Design Engineer: Yobany Blount PhD, Phone: [phone] [facility] PROGESTERONEon [id number] ng/mL.[facility] HealthcareComment on above:Follicular phase 0.1 - 0.9 Luteal phase 1.8 - 23.9 Ovulation phase 0.1 - 12.0 First trimester 11.0 - 44.3 Second trimester 25.4 - 83.3 Third trimester 58.7 - 214.0 Postmenopausal 0.0 - 0.1 Performed at: [address] [id number] Signaling Design Engineer: Yobany Blount PhD, Phone: [phone] [facility] PROGESTERONEon [id number] ng/mL.[facility] HealthcareComment on above:Follicular phase 0.1 - 0.9 Luteal phase 1.8 - 23.9 Ovulation phase 0.1 - 12.0 First trimester 11.0 - 44.3 Second trimester 25.4 - 83.3 Third trimester 58.7 - 214.0 Postmenopausal 0.0 - 0.1 Performed at: [address] [id number] Signaling Design Engineer: Yobany Blount PhD, Phone: [phone] [facility] CBC WITH AUTO DIFFon [id number] ABSOLUTE AUTO0.1[facility] HealthcareBasophils/100 WBC (Bld)0.6 %0.2 - 2.0 %[facility] Eosinophils/100 WBC (Bld)2.8 %0.9 - 7.0 %[facility] HealthcareErythrocyte distribution width (RBC) [Ratio]12.1 %11.0 - 15.0 %[facility] HealthcareHematocrit (Bld) [Volume fraction]40.6 %36.0 - 48.0 %[facility] HealthcareHemoglobin (Bld) [Mass/Vol]13.5 g/dL 12.0 - 16.0 g/dLNOTN HealthcareIMMATURE GRANULOCYTES ABS AUTO0.02[facility] Immature granulocytes/100 WBC (Bld)0.3 %0.0 - 0.5 %[facility] HealthcareLYMPHOCYTES ABSOLUTE AUTO1.8[facility] HealthcareLymphocytes/100 WBC (Bld)23.0 %20.5 - 60.0 %[facility] HealthcareMCH (RBC) [Entitic mass]30.6 pg26.7 - 34.0 pgSoutheast Missouri Community Treatment CenterHC (RBC) [Mass/Vol]33.3 g/dL29.9 - 35.2 g/dLSoutheast Missouri Community Treatment CenterV (RBC) [Entitic vol]92.1 fL 81.0 - 99.0 fLPutnam County Memorial HospitalMONOCYTES ABSOLUTE AUTO0.5[facility] Monocytes/100 WBC (Bld)6.6 %1.7 - 12.0 %[facility] HospitalNEUTROPHILS ABSOLUTE AUTO 5.3N[facility] HospitalNeutrophils/100 WBC (Bld)66.7 %43.0 - 75.0 %[facility] Platelet mean volume (Bld) [Entitic vol]9.8 fL9.5 - 13.5 fLPutnam County Memorial HospitalTB EO #0.2N[facility]S [facility]itan HospitalTB [id number] [facility] RBC4.41NOThe [facility] WBC8.0 [facility] HospitalCLINISYNCNKindred HospitalALL CBC WITH AUTO DIFFon 04-24-2024 BASOPHILS ABSOLUTE AUTO0.1[facility] HospitalBasophils/100 WBC (Bld)0.5 %0.2 - 2.0 % [facility] HospitalEosinophils/100 WBC (Bld)2.8 %0.9 - 7.0 %[facility] Erythrocyte distribution width (RBC) [Ratio]12.0 %11.0 - 15.0 %[facility] Hematocrit (Bld) [Volume fraction]39.7 %36.0 - 48.0 %[facility] HospitalHemoglobin (Bld) [Mass/Vol]13.4 g/dL12.0 - 16.0 g/dLPutnam County Memorial HospitalIMMATURE GRANULOCYTES ABS AUTO0.03NOBarnes-Jewish Saint Peters HospitalImmature granulocytes/100 WBC (Bld)0.3 %0.0 - 0.5 % [facility] HospitalInterpretation and review of laboratory resultsAbnormalNOBarnes-Jewish Saint Peters HospitalLYMPHOCYTES ABSOLUTE AUTO2.9[facility] HospitalLymphocytes/100 WBC (Bld) 24.4 %20.5 - 60.0 %[facility] CenterH (RBC) [Entitic mass]30.7 pg26.7 - 34.0 pg [facility] CenterHC (RBC) [Mass/Vol]33.8 g/dL29.9 - 35.2 g/dLNOTN HealthcareMCV (RBC) [Entitic vol]91.1 fL81.0 - 99.0 fLNOMS HealthcareMONOCYTES ABSOLUTE AUTO 0.6NOMS HealthcareMonocytes/100 WBC (Bld)5.2 %1.7 - 12.0 %[facility] NEUTROPHILS ABSOLUTE AUTO8.0HighNOMS HealthcareNeutrophils/100 WBC (Bld)66.8 % 43.0 - 75.0 %[facility]OM[facility] HealthcarePlatelet mean volume (Bld) [Entitic vol]10.1 fL9.5 - 13.5 fLNOMS HealthcareTBH EO #0.3NOMS HealthcareTBH TCR645RKSS HealthcareTBH RBC 4.36NOMS HealthcareTBH WBC12.0HighNOMS HealthcareCLINISYNCNOMS HealthcarePOCT EKGOrdered By: Sheyla Powell on 90-33-6634TisXcaicvUniversity Hospitals Geauga Medical CenterNo Panel InformationOrdered By: Pinky Singh on 62-95-6404Lqunp Strep (POC)[facility] SystemCytology Cervical or vaginal smear or scraping studyon 37-06-1812DZWF HealthcareCOVID/FLU/RSV RT-PCRon 17-56-3653HUFF-CoV-2 (COVID-19) RNA PEACE+probe Ql (Unsp spec)PositiveNopemiscot memorial health systems Help [facility]edies Other COVID/FLU/RSV RT-PCRNegativeNort Help Remedies Other Vital Signs Date TimeVital SignValuePerforming ZjzqtlpdrUuxbmkcr02-15-7639 09:03-0400 Diastolic blood kzwuhllo46 mm[Hg]Rody Qiu PATIENT ACCESS SPECIALIST Work Phone: [facility] HospitalDghrwpmvsp60-59-9442 09:03-0400Systolic blood esnbbstu062 mm[Hg]Rody Qiu PATIENT ACCESS SPECIALIST Work Phone: [facility] HospitalQggiqzloak83-79-7098 09:02-0400Body mass index (BMI) [Ratio]42.99 kg/o8JnvriujhRody Qiu PATIENT ACCESS SPECIALIST Work Phone: [facility] HospitalIndxgiwdvp61-09-2566 09:02-0400Body iymopf045.25 kgAlexeybibiana Resendezly PATIENT ACCESS SPECIALIST Work Phone: [phone] [place], [place] 9413010-09-2025 16:31-0400Body mass index (BMI) [Ratio]43.49 kg/f9Kqqryrze Uyen PATIENT ACCESS SPECIALIST Work Phone: 1([phone])[address] [place], [place] 9413010-09-2025 16:31-0400Body rkryhr951.73 kgAlexeybibiana Branderly PATIENT ACCESS SPECIALIST Work Phone: 1([phone])[address] [place] [address]-09-2025 16:31-0400Diastolic blood mm[Hg]Rody Uyen PATIENT ACCESS SPECIALIST Work Phone: [phone] [place], [place] 9413010-09-2025 16:31-0400Systolic blood iftiitci312 mm[Hg]Rody Uyen PATIENT ACCESS SPECIALIST Work Phone: [phone] [place], [place] 9413010-02-2025 15:07-0400Body mass index (BMI) [Ratio]43.03 kg/a5Flrtgfay Uyen PATIENT ACCESS SPECIALIST Work Phone: 1(419)[address] [place], [place] 9413010-02-2025 15:07-0400Body iiqnct989.37 kgAlexeyminga Uyen PATIENT ACCESS SPECIALIST Work Phone: 1(989)[address] [place], [place] 9413010-02-2025 15:07-0400Diastolic blood mm[Hg]Rody Uyen PATIENT ACCESS SPECIALIST Work Phone: 1(194)[address] [place], [place] 9413010-02-2025 15:07-0400Systolic blood mm[Hg]Rody Uyen PATIENT ACCESS SPECIALIST Work Phone: 1(419)[address] [place], [place] 9413009-26-2025 07:51-0400Body rdqyuj370.7 cmYordy Cruz MD Work Phone: [phone])[address]09-26-2025 07:51-0400Body mass index (BMI) [Ratio]42.96 kg/m2Yordy Cruz MD Work Phone: 1(419)[address]09-26-2025 07:51-0400Body cwprif539.14 kgYordy Cruz MD Work Phone: 1(419)[address]09-26-2025 07:51-0400Diastolic blood gfvzwulw69 mm[Hg]Yordy Cruz MD Work Phone: 1([phone])[address]09-26-2025 07:51-0400Heart rate 87 /Glenna Cruz MD Work Phone: 1([phone])[address]09-26-2025 07:51-0400Systolic blood wuhzyhcq304 mm[Hg]Yordy Cruz MD Work Phone: [phone])[address]09-04-2025 11:30-0400Body mass index (BMI) [Ratio]42.88 kg/l7Opeuj Davie DO Work Phone: [phone])[address]09-04-2025 11:30-0400Body bucfay855.91 kgCorey Davie DO Work Phone: 1([phone])149-[address] [place], [place] [address]Pctiazpfax58-13-2236 11:30-0400Diastolic blood coxcikda42 mm[Hg]Caesar Davie DO Work Phone: 1(459)[facility] [place], [place] [address]Ipfehpzxyj05-23-0209 11:30-0400Systolic blood izcrtnxi035 mm[Hg]Caesar Davie DO Work Phone: 1([phone])672-[address] [place], [place] [address]Qytgpxyiik95-12-3089 11:00-0400Body mass index (BMI) [Ratio]42.63 kg/w2Pvffp Davie DO Work Phone: [phone] [place], [place] [address]Tspufkxcfc89-59-0491 11:00-0400Body ylaizi321.19 kgCorey Davie DO Work Phone: 1(937)686-[address] [place], [place] [address]Wrmrsnhkkn35-31-2267 11:00-0400Diastolic blood dqfytigo04 mm[Hg]Caesar Davie DO Work Phone: 1(699)540-[address] [place] [address]-21-2025 11:00-0400Systolic blood fjatsjgw893 mm[Hg]Caesar Davie DO Work Phone: 1(504)381-[address] [place], [place] [address]Lxgmfqnvtx82-19-7609 11:42-0400Body mass index (BMI) [Ratio]42.29 kg/c1Jjfut Davie DO Work Phone: 1(792)696-[address] [place] [address]-07-2025 11:42-0400Body .15 kgCorey Davie DO Work Phone: [facility] HospitalEjdrxwkasc33-91-2022 11:42-0400Diastolic blood zwgzhevr54 mm[Hg]Caesar Davie DO Work Phone: [facility] HospitalOhkrgaraal90-71-1073 11:42-0400Systolic blood hnvpwwpi717 mm[Hg]Caesar Davie DO Work Phone: 1([phone] [place], [place] [address]Xrgozpvrqf75-99-0424 10:03-0400Body mass index (BMI) [Ratio]41.66 kg/a9HzrfiMontefiore Medical Center07-11-2025 10:03-0400Body weight 124.29 kgMontefiore Medical Center07-11-2025 10:03-0400Diastolic blood honycujp76 mm[Hg][facility]07-11-2025 10:03-0400Systolic blood wgmjhkah913 mm[Hg][facility]05-15-2025 10:52-0400Body ycwksx561.7 Gilmer Lopez MD Work Phone: 1()[address]05-15-2025 10:52-0400 Body mass index (BMI) [Ratio]40.84 kg/s6HxjttzRobbie Lopez MD Work Phone: 1(216)[address] [place], [place] 1156905-15-2025 10:52-0400 Body hgrebvazpts35.81 [degF]Robbie Lopez MD Work Phone: 1(216)[facility] [place], [place] 6103205-15-2025 10:52-0400 Body lrziji620.84 kgRobbie Lopez MD Work Phone: 1(216)[address] [place], [place] 1156905-15-2025 10:52-0400 Diastolic blood jegqlent63 mm[Hg]Robbie Lopez MD Work Phone: 1(216)[address]05-15-2025 10:52-0400 Heart rate73 /minRobbie Lopez MD Work Phone: 1(216)378-[address] [place], [place] 6103205-15-2025 10:52-0400 Systolic blood acgwbnjw604 mm[Hg]Robbie Lopez MD Work Phone: [facility]04-29-2025 13:38-0400 Body mass index (BMI) [Ratio]40.35 kg/y2Twued Davie DO Work Phone: [facility] HospitalHhberuhbzm76-73-5623 13:38-0400Body .39 kgCorey Davie DO Work Phone: 1(525)935-[address] [place], [place] [address]Izahhhvgbh40-63-2228 13:38-0400Diastolic blood ahddcmax19 mm[Hg]Caesar Davie DO Work Phone: [facility] HospitalWkabepljef58-35-1665 13:38-0400Systolic blood gwuiimhf428 mm[Hg]Caesar Davie DO Work Phone: [facility] HospitalSnfnugzalr58-77-8365 14:36-0400Body mass index (BMI) [Ratio]40.75 kg/h4Mwscv Davie DO Work Phone: 1(701)448-[address] [place], [place] [address]Nfdaaoniff75-33-2877 14:36-0400Body feexza198.56 kgCorey Davie DO Work Phone: 1(305)574-[address] [place], [place] [address]Oyinrapbga29-55-6546 14:36-0400Diastolic blood unbqkgin46 mm[Hg]Caesar Davie DO Work Phone: [facility] HospitalOqnutwpcrg22-30-0516 14:36-0400Systolic blood zsmlcdur637 mm[Hg]Caesar Davie DO Work Phone: 1(737)807-[address] [place], [place] [address]Zkkpuehzzc00-75-6936 14:03-0400Diastolic blood bjyopvin37 mm[Hg]Caesar Davie DO Work Phone: [facility] HospitalNxcaxjdxcj55-98-7954 14:03-0400Systolic blood mm[Hg]Caesar Davie DO Work Phone: [facility] HospitalHytfysezvp67-74-6554 13:12-0500Body mass index (BMI) [Ratio]40.01 kg/c2Ofpga Davie DO Work Phone: 1(419)[address] [place], [place] 9413012-02-2024 13:12-0500Body .35 kgCorey Davie DO Work Phone: 1(672)[address] [place], [place] 9413012-02-2024 13:12-0500Diastolic blood ihhtayrj61 mm[Hg]Caesar Davie DO Work Phone: 1(298)[facility] [place], [place] [address]Uuokwlsequ30-39-1959 13:12-0500Systolic blood dxhjztyq855 mm[Hg]Caesar Davie DO Work Phone: 1(656)[address] [place], [place] 9413010-21-2024 14:39-0400Body yklunw291.7 cmCorey Davie DO Work Phone: 1(220)[address] [place], [place] 9413010-21-2024 14:39-0400Body mass index (BMI) [Ratio]39.53 kg/w7Cacrn Davie DO Work Phone: 1(910)[address] [place], [place] 9413010-21-2024 14:39-0400Body guglgd567.94 kgCorey Davie DO Work Phone: 1(621)[address] [place], [place] 9413010-21-2024 14:39-0400Diastolic blood ejvjxhuo87 mm[Hg]Caesar Davie DO Work Phone: 1(098)[address] [place], [place] 9413010-21-2024 14:39-0400Systolic blood mm[Hg]Caesar Davie DO Work Phone: 1(387)[address] [place], [place] 9413009-12-2024 11:39-0400Body ggsohc916.84 kgCorey Davie DO Work Phone: 1(585)[address] [place], [place] 9413009-12-2024 11:39-0400Diastolic blood nsydovxl03 mm[Hg]Caesar Davie DO Work Phone: 1(147)[address] [place], [place] 9413009-12-2024 11:39-0400Systolic blood twgflfny708 mm[Hg]Caesar Davie DO Work Phone: 1(164)[address] [place], [place] 9413008-20-2024 09:36-0400Body smjdvo783.57 kgCorey Davie DO Work Phone: 1(233)[address] [place], [place] 9413008-20-2024 09:36-0400Diastolic blood vwqpvadg51 mm[Hg]Caesar Broderick DO Work Phone: [facility] HospitalPzzbrolkli29-12-4201 09:36-0400Systolic blood gtlyjkcs328 mm[Hg]Caesar Broderick DO Work Phone: [facility] HospitalTurisupacb75-61-6252 10:50-0400Body wauynf382.7 cmTelham Fraire MD Work Phone: 1(114)354-Lyrically [facility] LoungeUniversity Hospitals [facility]07-23-2024 10:50-0400Body mass index (BMI) [Ratio]40.66 kg/e2PkvsuzJames Fraire MD Work Phone: 1([phone] [facility] Cafe & LoungeUniversity Hospitals Ely[facility] Center07-23-2024 10:50-0400Body nhqpil824.29 kgJames Fraire MD Work Phone: 1(515)898-Lyrically [facility] [facility] LoungeUniversity Hospitals Ely[facility]07-23-2024 10:50-0400Diastolic blood dfkopnnj89 mm[Hg]James Fraire MD Work Phone: 1(345)295-[address] [place], [place] 3595107-23-2024 10:50-0400Heart rate 83 /minJames Fraire MD Work Phone: 1(469)7Lyrically [facility] Cafe [facility] LoungeUniversity Hospitals Ely[facility]07-23-2024 10:50-6723GfM7% (BldA) [Mass fraction]98 %James Fraire MD Work Phone: [facility]07-23-2024 10:50-0400Systolic blood ghqtwuhm945 mm[Hg]James Fraire MD Work Phone: 1([phone])612-Lyrically [facility] LoungeUniversity Hospitals Ely[facility] Center04-04-2024 12:26-0400Body .72 cmMount [facility]04-04-2024 12:26-0400Body mass index (BMI) [Ratio]42.6 kg/h3ZksoguyskMount Carmel Health System04-04-2024 12:26-0400Body loedlwqolpt37.3 [degF][facility]04-04-2024 12:26-0400Body ugvbmj339.11 kgMount Carmel Health System04-04-2024 12:26-0400Diastolic blood jyuhhloy63 mm[Hg][facility] 11-24-2023 12:26-0400Heart rate75 /[facility] 11-24-2023 12:26-0400Respiratory rate18 /[facility] 11-24-2023 12:26-8555XbP9% (BldA) [Mass fraction]98 %[facility]04-04-2024 12:26-0400Systolic blood gysavhhd622 mm[Hg][facility]02-20-2023 11:35-0500Body .72 cmPamelgavin Singh Other [employer] Other 02-20-2023 11:35-0500Body mass index (BMI) [Ratio] 42.27 kg/j6HfaguwPinky Singh Other [employer] Other 02-20-2023 11:35-0500Body qmupnxcnhpc70.8 [degF]Pinky Hernandezmond Other [employer] Other 02-20-2023 11:35-0500Body ngclef397.1 kgPinky Singh Other [employer] Other 02-20-2023 11:35-0500Respiratory rate18 /Sera Singh Other [employer] Other 02-20-2023 11:35-5100StB8% (BldA) [Mass fraction]98 % Pinkypushpa Singh Other [employer] Other Encounters Encounter DateEncounter TypeCare ProviderFacilityStart: 06-18-2025 End: 19-85-7228Rkypdl outpatient visit 25 minutesIra Anthony MCKEON Work Phone: [phone]-Zvdyq [facility] Comment on above:Chronic hypertension affecting (Primary Dx); 20 weeks gestation of ; Anxiety disorder affecting , antepartum; Acute palmoplantar pustular psoriasis; Severe obesity due to excess calories affecting , antepartum ([facility]) Start: 06-18-2025 End: 26-02-2091ivqumulvnnURPWellstar [facility] HospitalStart: 06-18-2025 End: 01-46-9364wildfyjfspMMAMUFranklin Woods Community Hospital HospitalStart: 06-05-2025 End: 75-62-0527Qrgidb flowsMark Qiu PATIENT ACCESS SPECIALIST Work Phone: [facility] OBGYNStart: 06-05-2025 End: 98-31-2307Tndghc flowsMark Qiu PATIENT ACCESS SPECIALIST Work Phone: [facility]BGYNStart: 06-05-2025 End: 11-20-2741Rhzstdej flow sheetRody Qiu PATIENT ACCESS SPECIALIST Work Phone: [facility] OBGYNComment on above:Second trimester ([facility]); 23 weeks gestation of ([facility])Start: 06-05-2025 End: 12-86-6111xiredvfdljIFGDEYUM EBERLYNot AvailableStart: 05-30-2025 End: 84-25-8945Cadhccsm flow sheetTheresaa Uyen PATIENT ACCESS SPECIALIST Work Phone: [facility] [place] OBGYNComment on above:Chronic hypertension affecting ([facility]) (Primary Dx); Second trimester ([facility]); 22 weeks gestation of ([facility])Start: 05-30-2025 End: 72-61-3527izhgrkeberIVYKTNYD EBERLYNot AvailableStart: 05-30-2025 End: 69-16-2842Gobbnq flowsheetTheresaa Uyen PATIENT ACCESS SPECIALIST Work Phone: [facility] [place] OBGYNStart: 05-30-2025 End: 65-93-2363Kfmmsr flowsheetRody Qiu PATIENT ACCESS SPECIALIST Work Phone: [facility]BGYNStart: 05-24-2025 End: 05-78-8517Tycxva OnlyAmy [place] LPTNaternal- Medicine at [facility] HospitalComment on above:Acute palmoplantar pustular psoriasis (Primary Dx); Chronic hypertension affecting ; Severe obesity due to excess calories affecting , antepartum ([facility]); Hypertension affecting in second trimesterStart: 05-23-2025 End: 51-38-1063zdjpgjkwzbOHBSUKCF EBERLYNot AvailableStart: 05-23-2025 End: 50-11-0684Xcssnrsu flow Karel Qiu NP Work Phone: [facility] [place] OBGYNComment on above:Second trimester ([facility]); 21 weeks gestation of ([facility]); induced hypertension, antepartum ([facility]); Vitamin D deficiency; H/O pre-eclampsia in prior , currently ([facility])Start: 05-23-2025 End: 01-22-3222Talgnx Jennyfer Qiu NP Work Phone: [facility] [place] OBGYNStart: 05-23-2025 End: 88-73-1374Sjfpuqherminio Qiu NP Work Phone: [facility] [place] OBGYNStart: 05-23-2025 End: 51-14-6334Wurkxlpmg Result EncounterCorey Davie DO Work Phone: NO[facility] External Department UnsolicitedStart: 05-17-2025 End: 94-52-7449Oijpgw consultation new/estab patient 62 Hannah Hare MD Work Phone: [phone]-Qngzw [facility] at [facility] Comment on above:Chronic hypertension affecting (Primary Dx); Acute palmoplantar pustular psoriasis; Severe obesity due to excess calories affecting , antepartum ([facility]); 20 weeks gestation of pregnancyStart: 05-17-2025 End: 46-67-5240Bfgdgx OnlyAmy [place] LPTNaternal- Medicine at [facility] HospitalComment on above:Acute palmoplantar pustular psoriasis (Primary Dx); Chronic hypertension affecting ; Severe obesity due to excess calories affecting , antepartum ([facility]); Hypertension affecting in second trimesterStart: 04-29-2025 End: 49-45-6082Rlbwaqrwv department patient visitCOMMUNPREMIER HEALTH [facility] Centertart: 04-25-2025 End: 91-90-2065Oetghs flowsheetCorey Davie DO Work Phone: [facility]BGYNStart: 04-25-2025 End: 17-76-3282Ckqkxu flowsheetCorey Davie DO Work Phone: [facility]BGYNStart: 04-25-2025 End: 59-62-7686Dpsgui outpatient visit 15 minutesCorey Davie DO Work Phone: [facility] [place] OBGYNComment on above:Screening, , for anatomic survey ([facility]); Second trimester ([facility]); 17 weeks gestation of ([facility]); Screen for STD (sexually transmitted disease); Need for maternal serum alpha-protein (MSAFP) screening ([facility]); induced hypertension, antepartum ([facility]); Vitamin D deficiencyStart: 04-25-2025 End: 22-58-3076ulmtajqpvlIJIEJ FAZIONot AvailableStart: 04-23-2025 End: 32-71-0785Jfsyh Caroline Cruz MD Work Phone: [phone]-Kjrcl [facility] Start: 04-21-2025 End: 20-36-9036Hognmelbl Result EncounterCorey Davie DO Work Phone: noms External Department UnsolicitedStart: 04-21-2025 End: 12-03-2858Vbetqzome Result EncounterCorey Davie DO Work Phone: noms External Department UnsolicitedStart: 04-19-2025 End: 99-69-5743Rbeiak Fozia Moise RNMaternal- Medicine at [facility] HospitalComment on above:Hypertension affecting in second trimester (Primary Dx)Start: 04-17-2025 End: 35-49-0626Lpopbteud Result EncounterCorey Davie DO Work Phone: noms External Department UnsolicitedStart: 04-17-2025 End: 28-47-4505Llttauate Result EncounterCorey Davie DO Work Phone: noms External Department UnsolicitedStart: 04-11-2025 End: 74-02-7037Lcexjg flowsheetCorey Davie DO Work Phone: [facility]BGYNStart: 04-11-2025 End: 17-46-6944Wzhftw flowsheetCorey Davie DO Work Phone: [facility] OBGYNStart: 04-11-2025 End: 07-61-1754Gdtskd outpatient visit 15 minutesCorey Davie DO Work Phone: [facility] [place] OBGYNComment on above:15 weeks gestation of ([facility]); Second trimester ([facility]); Acute nonintractable headache, unspecified headache type; BP check; Gestational hypertension, antepartum ([facility]); induced hypertension, antepartum ([facility])Start: 04-11-2025 End: 08-31-4451Bmrngka encounter statusCorey Davie DO Work Phone: NO HealthcareStart: 04-11-2025 End: 90-84-6435zxytzrlxkiMDMEG FAZIONot AvailableStart: 03-28-2025 End: 03-84-3595Wimnzo flowsheetCorey Davie DO Work Phone: [facility] [place] OBGYNStart: 03-28-2025 End: 89-68-4326Laqcbh flowsheetCorey Davie DO Work Phone: [facility] [place] OBGYNStart: 03-28-2025 End: 55-40-3515Gfqjai outpatient visit 15 minutesCorey Davie DO Work Phone: [facility] OBGYNComment on above:13 weeks gestation of ([facility]); Second trimester ([facility]); Acute nonintractable headache, unspecified headache typeStart: 03-28-2025 End: 60-07-8202bqvetgqsgiWVBEV FAZIONot AvailableStart: 03-20-2025 End: 49-22-9001Wkjvujepb Result EncounterCorey Davie DO Work Phone: noms External Department UnsolicitedStart: 03-20-2025 End: 37-04-3620Ygxagwbbh Result EncounterCorey Davie DO Work Phone: noms External Department UnsolicitedStart: 03-01-2025 End: 14-58-2866Ntuoxs outpatient visit 5 minutesFazio Nurse [facility]oms Bcp ObNOMS BCP OBStart: 03-01-2025 End: 29-21-5953bxxcaaxpxzMFORW FAZIONot AvailableStart: 01-16-2025 End: 03-86-1384Rludhyfei Result EncounterCorey Davie DO Work Phone: noms External Department UnsolicitedStart: 01-16-2025 End: 49-23-7017Xdzzpcqig Result EncounterCorey Davie DO Work Phone: noms External Department UnsolicitedStart: 01-03-2025 End: 88-96-3730Eoeodsh encounter procedureRobbie Lopez MD Work Phone: Steve OrrargyleComment on above:Encounter for preprocedural laboratory examination (Primary Dx); Abnormal uterine bleedingStart: 01-03-2025 End: 61-38-4073Fujcsrw encounter statusRobbie Lopez MD Work Phone: [facility] Work Phone: Start: 01-03-2025 End: 12-25-9035ivaqpahpryRVYXRE S WEINERMANUnSelect Medical Specialty Hospital [facility]man, Inctart: 01-03-2025 End: 88-40-0047Osuphugti for preprocedural laboratory examinationRACHEL S [facility] Hospitaltart: 12-18-2024 End: 77-63-2869Oamovblz Result EncounterCorey Davie DO Work Phone: noms External Department UnsolicitedStart: 12-18-2024 End: 73-28-5302Aiimghnc Result EncounterCorey Davie DO Work Phone: noms External Department UnsolicitedStart: 12-18-2024 End: 27-85-7121Baybmlx encounter procedureCorey Davie DO Work Phone: noms BCP OBComment on above:Skin moleStart: 12-18-2024 End: 20-89-0715zbrhquyuxaVoalg FazioFiKindred Hospital [facility] Work Phone: Start: 12-18-2024 End: 49-46-0503Auxuktfb ReferredCorey Davie DO Work Phone: [facility] Path Spec [place] HospStart: 12-17-2024 End: 83-90-3127Oceklqvry Result EncounterCorey Davie DO Work Phone: noms External Department UnsolicitedStart: 12-17-2024 End: 17-17-7375Vkollckmf Result EncounterCorey Davie DO Work Phone: noms External Department UnsolicitedStart: 12-10-2024 End: 25-77-0023Alreblr encounter procedureCorey Davie DO Work Phone: noms HealthcareStart: 12-10-2024 End: 47-76-4050Mtvmqqfe preventive med est patient 18-39 yrsCorey Davie DO Work Phone: noms BCP OBComment on above:Well woman exam with routine gynecological examStart: 12-10-2024 End: 81-01-5274ijotmltvscQDPUR FAZIONot AvailableStart: 12-10-2024 End: 24-54-3017Ubwrcx flowsheetCorey Davie DO Work Phone: [facility] BCP OBStart: 12-10-2024 End: 15-87-9183Tezvre flowsheetCorey Davie DO Work Phone: [facility] BCP OBStart: 12-10-2024 End: 33-88-8642Txkwisrod Result EncounterCorey Davie DO Work Phone: [facility] External Department UnsolicitedStart: 11-16-2024 End: 97-97-9066Txtxzodji Result EncounterCorey Davie DO Work Phone: [facility] External Department UnsolicitedStart: 11-16-2024 End: 15-31-5305Pihygmfli Result EncounterCorey Davie DO Work Phone: [facility] External Department UnsolicitedStart: 11-12-2024 End: 97-36-1362Zlixal outpatient visit 15 minutesCorey Davie DO Work Phone: [facility] OBComment on above:Encounter for fertility planning; Acute cystitis without hematuria; PCOS (polycystic ovarian syndrome); Fallopian tube disorderStart: 11-12-2024 End: 77-28-9470Hvhbwp flowsheetCorey Davie DO Work Phone: [facility] OBStart: 11-12-2024 End: 26-60-8534Ysopto flowsheetCorey Davie DO Work Phone: [facility] OBStart: 11-12-2024 End: 92-64-9240admrcxmehrWGRUM FAZIONot AvailableStart: 11-03-2024 End: 01-33-1752Yqsuuminz department patient visitCOMMUNPREMIER [facility]art: 10-18-2024 End: 26-17-8052Khzzrkqos Result EncounterCorey Davie DO Work Phone: [facility] External Department UnsolicitedStart: 10-18-2024 End: 44-23-8161Heprdgokl Result EncounterCorey Davie DO Work Phone: [facility] External Department UnsolicitedStart: 09-17-2024 End: 39-88-3390Nvfjxxqyt Result EncounterCorey Davie DO Work Phone: [facility] External Department UnsolicitedStart: 09-17-2024 End: 54-20-4849Bslcgfqzf Result EncounterCorey Davie DO Work Phone: NODJ External Department UnsolicitedStart: 08-16-2024 End: 66-73-9119Rcxqzfkmn Result EncounterCorey Davie DO Work Phone: NOQU External Department UnsolicitedStart: 08-16-2024 End: 31-90-3734Fxeucicso Result EncounterCorey Davie DO Work Phone: NOGR External Department UnsolicitedStart: 07-23-2024 End: 92-41-9650Oomabg flowsheetCorey Davie DO Work Phone: NOGY BCP OBStart: 07-23-2024 End: 07-32-0193Nrjhae flowsheetCorey Davie DO Work Phone: NOBP BCP OBStart: 07-23-2024 End: 65-82-1809jztazdyyrbALIXH FAZIONot AvailableStart: 07-23-2024 End: 89-98-4355Hgvpwl outpatient visit 15 minutesCorey Davie DO Work Phone: NOLY BCP OBComment on above:PCOS (polycystic ovarian syndrome); Encounter for fertility planningStart: 07-18-2024 End: 81-25-2471Sgdtcgzps Result EncounterCorey Davie DO Work Phone: NOVI External Department UnsolicitedStart: 07-18-2024 End: 35-55-0359Bbshqbkey Result EncounterCorey Davie DO Work Phone: NOMS External Department UnsolicitedStart: 06-11-2024 End: 67-52-3375Bprsfh follow up visit related to original pxCorey Davie DO Work Phone: NOMS BCP OBComment on above:Postoperative visit; S/P laparoscopic procedureStart: 06-11-2024 End: 62-78-8424Gnhfdy flowsheetCorey Davie DO Work Phone: NOMS BCP OBStart: 06-11-2024 End: 31-85-0987Tdzsba flowsheetCorey Davie DO Work Phone: NOVL BCP OBStart: 06-11-2024 End: 55-08-2885ncitcclilfZDMNL FAZIONot AvailableStart: 06-01-2024 End: 45-84-8756Repfvmskk Result EncounterCorey Davie DO Work Phone: NOMS External Department UnsolicitedStart: 06-01-2024 End: 74-67-6665Bsaefcarm Result EncounterCorey Davie DO Work Phone: NOMS External Department UnsolicitedStart: 05-03-2024 End: 75-43-2252Jmooit outpatient visit 15 minutesCorey Davie DO Work Phone: [facility] OBComment on above:Pre-op examination; Pelvic pain in female; Fallopian tube disorderStart: 05-03-2024 End: 39-57-5200Dttbohadxhoyt examination doneCorey Davie DO Work Phone: NOMS HealthcareStart: 04-24-2024 End: 60-74-7066Lfrqmotvf Result EncounterCorey Davie DO Work Phone: NOMS External Department UnsolicitedStart: 04-24-2024 End: 28-58-7913Edptdtzir Result EncounterCorey Davie DO Work Phone: NOMS External Department UnsolicitedStart: 04-10-2024 End: 11-62-7307Pvnsli flowsheetCorey Davie DO Work Phone: NOMS BCP OBStart: 04-10-2024 End: 70-65-6828Daibfa flowsheetCorey Davie DO Work Phone: NOMS BCP OBStart: 04-10-2024 End: 90-70-9299Rxturu outpatient visit 15 minutesCorey Davie DO Work Phone: [facility] OBComment on above:Encounter for fertility planning; PCOS (polycystic ovarian syndrome); Pelvic pain in female; Abnormal uterine bleeding (AUB)Start: 03-13-2024 End: 94-44-2193Boljuu outpatient visit 15 minutesJames Fraire MD Work Phone: [facility] CardiologyComment on above:Heart palpitations (Primary Dx)Start: 03-12-2024 End: 89-88-6786Qcgbsmgzb encounterJennshayne Powell [facility]ITALProMedica Physicians CardiologyStart: 02-22-2024 End: 48-08-4140Gidni abstractingScanning Provider ExternalProMedica Physicians CardiologyStart: 11-24-2023 End: 83-64-9229qodsflfvtgHzdqtfylnWilson Health Work Phone: Start: 11-24-2023 End: 56-39-8300Gxdbetc encounter procedureDuke University [facility] Work Phone: Start: 10-11-2022 End: 81-71-9932szdgzmlwvjHdajmq Dymond Other [facility] [employer] Other Start: 64-23-5385Nmfowf outpatient new 20 minutes Pinky SinghFPG Urgent [facility] Procedures DateProcedureProcedure DetailPerforming ClinicianStart: 60-95-3741Pomxc dip stick/tablet rgnt non-auto w/o micrscpKristina Uyen PATIENT ACCESS SPECIALIST Work Phone: Start: 87-50-0292Hnzfb dip stick/tablet rgnt non-auto w/o micrscpKristina Uyen PATIENT ACCESS SPECIALIST Work Phone: Start: 80-76-4030UZR, SERUM, OPEN SPINA BIFIDACorey Davie DO Work Phone: Start: 56-06-7212Qzpdn dip stick/tablet rgnt non-auto w/o micrscpCorey Davie DO Work Phone: Start: 89-85-8301BKH TOTAL PROTEIN 24 HOUR URINECorey Davie DO Work Phone: Start: 54-12-8881Vwqzz count complete automatedNot In System Ref ProvStart: 91-41-7915IJK CBC WITH AUTO DIFFCorey Davie DO Work Phone: Start: 60-39-4465Kvnoy dip stick/tablet rgnt non-auto w/o micrscpCorey Davie DO Work Phone: Start: 70-42-9218Sxenn dip stick/tablet rgnt non-auto w/o micrscpCorey Davie DO Work Phone: Start: 63-62-2420Godvmbmk screenYordy Cruz MD Work Phone: Start: 44-83-7651Rplz scrn 1+ class nonchromoNot In System Ref ProvStart: 88-24-2021Nvyaemozvd glycosylated l5sDtcqjtwa Provider ExternalStart: 12-84-0174Ytzehzndc c antibodyNot In System Ref ProvStart: 20-32-0334NMS 1&2 AB/AG SCREEN (P24 AG)Not In System Ref ProvStart: 03-20-2025 Iaad ia hepatitis b surface antigenNot In System Ref ProvStart: 03-20-2025 SYPHILIS TOTAL(UNKNOWN SYPHILIS STATUS)Not In System Ref ProvStart: 03-20-2025 TYPE AND SCREENNot In System Ref ProvStart: 78-75-9321WED CBC WITH AUTO DIFF Caesar Davie DO Work Phone: Start: 03-01-2025 End: 12-86-7049Zqvjb dip stick/tablet rgnt non-auto w/o micrscpCorey Davie DO Work Phone: Start: 27-49-8545PMW PROGESTERONECorey Davie DO Work Phone: Start: 09-13-1334TYDRWQLHU REQUEST FOR LAB CORPCorey Davie DO Work Phone: Start: 95-86-4206BKK PROGESTERONECorey Davie DO Work Phone: Start: 31-77-0798MHL,APTIMA HPV,AGE GDLNCorey Davie DO Work Phone: Start: 49-19-7722Aazzadnuwdr observation [Identifier] in Cervix by Cyto stainCorey Davie DO Work Phone: Start: 75-33-7344EPA PROGESTERONECorey Davie DO Work Phone: Start: 93-75-3623XBU PROGESTERONECorey Davie DO Work Phone: Start: 55-51-6111EPN PROGESTERONECorey Davie DO Work Phone: Start: 75-66-6787LRS PROGESTERONECorey Davie DO Work Phone: Start: 57-53-0316NXN PROGESTERONECorey Davie DO Work Phone: Start: 06-43-3756VGR CBC WITH AUTO DIFFCorey Davie DO Work Phone: Start: 46-23-7957AYI CBC WITH AUTO DIFFCorey Davie DO Work Phone: Start: 63-30-7205Snb routine ecg w/least 12 lds w/i&r James Fraire MD Work Phone: Start: 10-55-5339Ogytl Strep (POC)Start: 11-23-2022 Microscopic observation [Identifier] in Cervix by Cyto stainScanning External Start: 70-21-0755Cszwmkmhyoi observation [Identifier] in Cervix by Cyto stain Caesar Davie DO Work Phone: Start: 88-70-2255Oqzl cerv/vag auto thin layer prep mnl screenAmy Zackary [employer] Work Phone: Plan of Treatment DateCare ActivityDetailAuthorStart: 01-51-3845Kvnyml Vaccines (1 of 2)Zoster Vaccines (1 of 2)[facility] HospitalStart: 17-12-9668Jwtzhiplx for malignant neoplasm of cervixNOMS HealthcareStart: 36-28-6868Xwvqpykps for malignant neoplasm of cervixNOMS HealthcareStart: 55-16-3408Epodz BMI Screening Adult BMI ScreeningJoint Township District Memorial Hospital SystemStart: 71-30-2476Spavllb Screening Tobacco ScreeningJoint Township District Memorial Hospital SystemStart: 12-16-2025 End: 47-46-1383Lwyayvz encounter procedureNOMS BCP OBStart: 24-73-5747Tzsljylww for malignant neoplasm of cervixPap SmearJoint Township District Memorial Hospital SystemStart: 40-51-6865Acsxnalvq for malignant neoplasm of cervixPap SmearNOTN Healthcare Start: 81-64-7304Ckpcgjm ScreeningTobacco ScreeningJoint Township District Memorial Hospital SystemStart: 06-24-2025 End: 96-91-2665Bmcbcro encounter blagmtxfy74/03/2025 1:50 PM EST Routine NOMTrent WUN [address] [place], [id number] Caesar Broderick DO [address] [place] [address] LIANA WUNStart: 06-18-2025 End: 72-22-1507Wqduoomgxsdt consultation with phhxlay2706/18/2025 2:00 PM EDT Telemedicine Maternal- Medicine at [facility] [address] [place] [phone] Yordy Cruz MD [address] [facility] [address] [place] [address] [facility]: 06-18-2025 End: 14-69-5122Epnijlb encounter tsgvaopgj75/28/2025 8:00 AM EDT Appointment [facility] - Ultrasound [address] [place] [address] SkoShkdicSelect Medical [facility] - UltrasoundStart: 06-05-2025 End: 15-74-9408Kzrcvzo encounter procedureNOMS [place] OBGYNComment on above: ArrivedStart: 05-30-2025 End: 57-79-6331Alyqkhb encounter procedureNOMS Aman OBGYNComment on above: ArrivedStart: 05-25-2025 End: 52-83-9370Cfjou fetoprotein, maternalAlpha fetoprotein, maternal Lab Routine Need for maternal serum alpha-protein (MSAFP) screening ([facility]-H[facility]) Expected: 05/25/2025 (Approximate), Expires: 05/25/2025NOMS HealthcareComment on above:Expected: 05/25/2025 (Approximate), Expires: 05/25/2025Start: 05-23-2025 End: 79-31-8562Pzlwmhf encounter ltuhmvyjf36/02/2025 2:30 PM EDT Routine [facility] [place] [facility] [address] [place], [id number] Rody Qiu, JEM [address] [place] [phone] N[facility] [place] OBGYNStart: 05-20-2025 End: 55-53-2500HX MFM with or without consultUS MFM with or without consult Imaging Routine Hypertension affecting in second trimesterExpected: 05/20/2025 (Approximate), Expires: 04/19/2026[facility] Work Phone: comment on above:Expected: 05/20/2025 (Approximate), Expires: 04/19/2026Start: 05-17-2025 End: 43-06-6732UU MFM with or without consultUS MFM with or without consult Imaging Routine 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 Severe obesity due to excess calories affecting , antepartum ([facility]) Hypertension affecting in second trimester Expected: 05/17/2025, Expires: 05/17/2026[facility] Work Phone: Comment on above:Expected: 05/17/2025, Expires: 05/17/2026Start: 05-17-2025 End: 11-10-8085Qikqvkz encounter procedureProMer[facility] Health [facility] US ImagingStart: 04-25-2025 End: 51-58-0293Qvmdhxi encounter procedureNOTN [place] OBGYNComment on above: ArrivedStart: 05-51-2700Whvcvzdfw vaccinationNOMS HealthcareStart: 04-11-2025 End: 25-37-8047Qzukxxr aminotransferase [Enzymatic activity/volume] in Serum or PlasmaALT Lab Routine Gestational hypertension, antepartum ([facility]-HCC) induced hypertension, antepartum ([facility]HS-HCC) Expected: 04/11/2025 (Approximate), Expires: 04/11/2026[facility] HealthcareComment on above:Expected: 04/11/2025 (Approximate), Expires: 04/11/2026Start: 04-11-2025 End: 96-10-0278Wbmidwusg aminotransferase [Enzymatic activity/volume] in Serum or PlasmaAST Lab Routine Gestational hypertension, antepartum (HHS-HCC) induced hypertension, antepartum (HHS-HCC) Expected: 04/11/2025 (Approximate), Expires: 04/11/2026NOTN HealthcareComment on above:Expected: 04/11/2025 (Approximate), Expires: 04/11/2026Start: 04-11-2025 End: 87-84-1189ARB W Auto Differential panel - BloodCBC and differential Lab Routine Gestational hypertension, antepartum (HHS-HCC) induced hy pertension, antepartum (HHS-HCC) Expected: 04/11/2025 (Approximate), Expires: 04/11/2026[facility] HealthcareComment on above:Expected: 04/11/2025 (Approximate), Expires: 04/11/2026Start: 04-11-2025 End: 57-71-2203Dxllctacsd [Mass/volume] in Serum or PlasmaCreatinine Lab Routine Gestational hypertension, antepartum (HHS-HCC) induced hypertension, antepartum (HHS-HCC) Expected: 04/11/2025 (Approximate), Expires: 04/11/2026[facility] Healthcare Work Phone: comment on above:Expected: 04/11/2025 (Approximate), Expires: 04/11/2026Start: 04-11-2025 End: 19-67-1975Jmfgnlu dehydrogenase [Enzymatic activity/volume] in Serum or Plasma by Lactate to pyruvate reactionLactate dehydrogenase Lab Routine Gestational hypertension, antepartum (HHS-HCC) induced hypertension, antepartum (HHS-HCC) Expected: 04/11/2025, Expires: 04/11/2026[facility] Comment on above:Expected: 04/11/2025, Expires: 04/11/2026Start: 04-11-2025 End: 21-45-2931Qvgfzfo, urine, 24 hourProtein, urine, 24 hour Lab Routine Gestational hypertension, antepartum (HHS-HCC) induced hypertension, antepartum (HHS-HCC) Expected: 04/11/2025 (Approximate), Expires: 04/11/2026[facility] HealthcareComment on above:Expected: 04/11/2025 (Approximate), Expires: 04/11/2026Start: 04-11-2025 End: 97-62-5252Vj and pttPt and ptt Lab Routine Gestational hypertension, antepartum (HHS-HCC) induced hypertension, antepartum (HHS-HCC) Expected: 04/11/2025, Expires: 04/11/2026[facility] HealthcareComment on above: Expected: 04/11/2025, Expires: 04/11/2026Start: 04-11-2025 End: 87-09-3281Ejcqu [Mass/volume] in Serum or PlasmaUric acid Lab Routine Gestational hypertension, antepartum (HHS-HCC) induced hypertension, antepartum (HHS-HCC) Expected: 04/11/2025 (Approximate), Expires: 04/11/2026[facility] HealthcareComment on above:Expected: 04/11/2025 (Approximate), Expires: 04/11/2026Start: 04-11-2025 End: 68-92-9401Mfzn nitrogen [Mass/volume] in Serum or PlasmaBUN Lab Routine Gestational hypertension, antepartum (HHS-HCC) induced hypertension, antepartum (HHS-HCC) Expected: 04/11/2025, Expires: 04/11/2026[facility] Comment on above:Expected: 04/11/2025, Expires: 04/11/2026Start: 04-11-2025 End: 71-40-0955Izaiici encounter procedureNOMS Aman OBGYNComment on above: ArrivedStart: 03-28-2025 End: 69-69-1068Ocegyrt encounter procedureNOMS BCP OBComment on above:Arrived Start: 30-42-9921Rksef BMI ScreeningAdult BMI ScreeningJoint Township District Memorial Hospital System Start: 51-41-1516Tumoiqn ScreeningTobacco ScreeningProSt. Mary'S [facility] SystemStart: 03-01-2025 End: 45-64-0762WOL/RhABO/Rh Lab Routine Missed menses , unspecified gestational age ([facility]) Expected: 03/01/2025 (Approximate), Expires: 03/01/2026NOTN HealthcareComment on above:Expected: 03/01/2025 (Approximate), Expires: 03/01/2026Start: 03-01-2025 End: 97-75-7051Aoawf type and Indirect antibody screen panel - BloodType and screen Lab Routine Missed menses , unspecified gestational age ([facility]- HCC) Expected: 03/01/2025 (Approximate), Expires: 03/01/2026[facility] Work Phone: comment on above:Expected: 03/01/2025 (Approximate), Expires: 03/01/2026Start: 03-01-2025 End: 05-36-2162Nupbq of abuse panel - Urine by Screen methodRapid drug screen, urine Lab Routine , unspecified gestational age ([facility]) Encounter for supervision of normal first in first trimester ([facility]) Expected: 03/01/2025 (Approximate), Expires: 03/01/2026[facility] HealthcareComment on above: Expected: 03/01/2025 (Approximate), Expires: 03/01/2026Start: 02-03-2025 End: 05-88-5534Xywoitenssqnxhrcpr ( test) [Presence] in UrinePOCT , urine manually resulted Point of Care Testing Routine Encounter for preprocedural laboratory examination Expected: 02/03/2025 (Approximate), Expires: 04/05/2025[facility] Work Phone: Comment on above:Expected: 02/03/2025 (Approximate), Expires: 04/05/2025Start: 02-03-2025 End: 84-32-9897QapmeecqtfywbaoCxigznyydytidob Procedures Routine Abnormal uterine bleeding Expected: 02/03/2025 (Approximate), Expires: 01/03/2026[facility] Service Area Work Phone: Comment on above:Expected: 02/03/2025 (Approximate), Expires: 01/03/2026Start: 02-03-2025 End: 92-82-2904ZT.doppler Uterus and Fallopian tubes W saline IUUS sonohysterogram Imaging Routine Abnormal uterine bleeding Expected: 02/03/2025 (Approximate), Expires: 01/03/2026[facility] Work Phone: Comment on above:Expected: 02/03/2025 (Approximate), Expires: 01/03/2026Start: 12-18-2024 End: 90-51-3271Hlyqtcb encounter qdcnxvegm96/29/2025 1:30 PM EDT Procedure Visit [facility] [address] [place] [phone] Caesar Broderick, DO [address] [place] [address] [facility] BCP OBStart: 82-15-2588LavkyzsvqAdams County Regional Medical Centertart: 12-10-2024 End: 82-28-8126Hijizew encounter procedureNOMS BCP OBComment on above:Arrived Start: 11-12-2024 End: 47-16-5104Zpgpaxp encounter procedureNOMS BCP OBComment on above:Arrived Start: 07-23-2024 End: 27-56-6240Fmcxruc encounter /02/2024 1:00 PM EST Office Visit [facility] [address] [place] [phone] Caesar Broderick, DO [address] [place] [address] [facility] BCP OBStart: 06-11-2024 End: 60-59-9260Jlfpost encounter tbzmhexae86/21/2024 2:20 PM EDT Office Visit [facility] [address] [place] [phone] Caesar Broderick, DO [address] [place] [address] ArrivedNOTN BCP OBComment on above:ArrivedStart: 06-01-2024 End: 60-92-1355Glbzelv encounter rbpehynpd97/11/2024 8:30 AM EDT Procedure Visit [facility] EXT DEP Caesar Broderick, DO [address] [place] [address] [place] [address] NOMS EXT DEPStart: 05-03-2024 End: 80-14-1206Ltqhgcc encounter ixiqjuxel41/12/2024 11:40 AM EDT Consult [facility] [address] [place] [phone] Caesar Broderick, DO [address] [place] [address] [place] [address] NOMS BCP OBStart: 62-07-6839CPESO-19 Vaccine ( season)COVID-19 Vaccine ( season)[facility] Start: 19-82-1526Xoikmwptn vaccinationNOTN HealthcareStart: 04-10-2024 End: 37-80-9991Nyjnpqheneuij hormone (AMH)Antimullerian hormone (AMH) Lab Routine PCOS (polycystic ovarian syndrome) Expected: 04/10/2024 (Approximate), Expires: 04/10/2025NOTN HealthcareComment on above:Expected: 04/10/2024 (Approximate), Expires: 04/10/2025Start: 04-10-2024 End: 75-89-3061NQGHZBRD Lab Routine PCOS (polycystic ovarian syndrome) Expected: 04/10/2024 (Approximate), Expires: 04/10/2025[facility] HealthcareComment on above: Expected: 04/10/2024 (Approximate), Expires: 04/10/2025Start: 04-10-2024 End: 68-14-5538CX for pregnancyUS PELVIS-TRANSVAG IF INDICATED Imaging Routine PCOS (polycystic ovarian syndrome) Pelvic pain in female Expected: 04/10/2024 (Approximate), Expires: 04/10/2025N[facility] HealthcareComment on above:Expected: 04/10/2024 (Approximate), Expires: 04/10/2025Start: 04-10-2024 End: 55-92-0103Lxduedv encounter zxubybdni87/20/2024 9:10 AM EDT Office Visit [facility] [address] [place] [address] Caesar Broderick, DO [address] [place] [address] ArrivedCEDAR CITY [facility] BCP OBComment on above:ArrivedStart: 03-13-2024 End: 02-72-0043Yjfmggk encounter dixplouho60/23/2024 11:00 AM EDT Office Visit [facility] [address] [place] [address] James Fraire MD [address] [facility] [place], [place] [facility] CardiologyStart: 38-95-3839Sykxe BMI ScreeningAdult BMI ScreeningProMedica Health SystemStart: 11-71-6424Znpccva ScreeningTobacco ScreeningProMedica Health SystemStart: 28-04-8486EEoJ/Tdap/Td Vaccines (1 - Tdap)DTaP/Tdap/Td Vaccines (1 - Tdap)[facility] HospitalStdownie[place]: 19-07-4346Nzmkuhyyt for malignant neoplasm of cervixHP/CotestCoshocton Regional Medical Center: 59-31-7975PYjL,Tdap and Td Vaccines (1 - Tdap)DTaP,Tdap and Td Vaccines (1 - Tdap)ProMSt. Josephs Area Health Services SystemStart: 36-60-0782Miacwvhpf B Vaccines (1 of 3 - 19+ 3-dose series)Hepatitis B Vaccines (1 of 3 - 19+ 3-dose series)[facility]: 91-81-9550Msptl BMI Follow Up PlanAdult BMI Follow Up PlanProUniversity Hospitals Portage Medical Centertart: 09-13-6714Wxgjewmhb C screeningHepatitis C ScreeningCoshocton Regional Medical Center: 03-81-0622Oyvvvzqbo vaccination Varicella Vaccines (1 of 2 - 13+ 2-dose series)[facility] Start: 98-69-4597Nszfklanot ScreeningDepression ScreeningUniversity Hospitals Ely[facility] Medical [facility] Start: 00-09-7914LQV Vaccines (1 of 1 - Standard series)MMR Vaccines (1 of 1 - Standard series)[facility]: 67-95-1558SCT screening HIV ScreeningCoshocton Regional Medical Center: 62-17-7313Omvvi panelLipid PanelCoshocton Regional Medical Center: 39-01-9354Smzwuu Adult Physical Yearly Adult PhysicalMagruder HospitalBacteria identified in Urine by CultureUrine culture Microbiology Routine Missed menses Ordered: 03/01/2025[facility] HealthcareComment on above:Ordered: 03/01/2025BC W Auto Differential panel - BloodCBC and differential Lab Routine PCOS (polycystic ovarian syndrome) Ordered: 04/10/2024[facility] HealthcareComment on above:Ordered: 04/10/2024BC W Auto Differential panel - BloodCBC and differential Lab Routine Missed menses , unspecified gestational age ([facility]) Ordered: 03/01/2025[facility] HealthcareComment on above:Ordered: 03/01/2025HLAMYDIA TRACHOMATIS (GENITO/STI)CHLAMYDIA TRACHOMATIS (GENITO/STI) Lab Routine Screen for STD (sexually transmitted disease) Ordered: 04/25/2025[facility] HealthcareComment on above:Ordered: 04/25/2025 End: 89-38-4546Cbdoxwwzzu, urine, 24 hourCreatinine, urine, 24 hour Lab Routine Chronic hypertension affecting 20 weeks gestation of 1 Occurrences starting 05/17/2025 until 05/17/2026[facility] SystemComment on above:1 Occurrences starting 05/17/2025 until 05/17/2026ytology Cervical or vaginal smear or scraping studyPap Smear Pathology and Cytology Routine Well woman exam with routine gynecological exam Ordered: 12/10/2024[facility] Healthcare Work Phone: comment on above:Ordered: 12/10/2024DHEA-sulfateDHEA- sulfate Lab Routine PCOS (polycystic ovarian syndrome) Ordered: 04/10/2024[facility] HealthcareComment on above:Ordered: 04/10/2024Follicle stimulating hormone Follicle stimulating hormone Lab Routine PCOS (polycystic ovarian syndrome) Ordered: 04/10/2024[facility] HealthcareComment on above:Ordered: 04/10/2024hCG, quantitative, pregnancyhCG, quantitative, Lab Routine PCOS (polycystic ovarian syndrome) Ordered: 04/10/2024[facility] Healthcare Work Phone: comment on above:Ordered: 04/10/2024Hemoglobin A1c/Hemoglobin.total in BloodHemoglobin A1c Lab Routine Pelvic pain in female Abnormal uterine bleeding (AUB) Ordered: 04/10/2024[facility] HealthcareComment on above:Ordered: 04/10/2024Hemoglobin A1c/Hemoglobin.total in BloodHemoglobin A1c Lab Routine Missed menses , unspecified gestational age ([facility]-HCC) Ordered: 03/01/2025[facility] HealthcareComment on above:Ordered: 03/01/2025Hepatitis B virus surface Ag [Presence] in Serum or Plasma by ImmunoassayHepatitis B surface antigen Lab Routine Missed menses , unspecified gestational age ([facility]) Ordered: 03/01/2025[facility] HealthcareComment on above:Ordered: 03/01/2025Hepatitis C virus Ab [Presence] in Serum or Plasma by Immunoassay Hepatitis C antibody Lab Routine Missed menses , unspecified gestational age ([facility]) Ordered: 03/01/2025[facility] HealthcareComment on above: Ordered: 03/01/2025HIV-1/HIV-2 antigen/antibody combination immunoassayHIV-1 and HIV-2 antibodies Lab Routine Missed menses , unspecified gestational age ([facility]) Ordered: 03/01/2025[facility] HealthcareComment on above:Ordered: 03/01/2025Human papilloma virus DNA [Presence] in Unspecified specimen by Probe with amplificationHPV DNA probe, amplified Microbiology Routine Well woman exam with routine gynecological exam Ordered: 12/10/2024[facility] HealthcareComment on above:Ordered: 12/10/2024Luteinizing hormoneLuteinizing hormone Lab Routine PCOS (polycystic ovarian syndrome) Ordered: 04/10/2024[facility] HealthcareComment on above:Ordered: 04/10/2024 End: 36-86-5804Elvdgglhmwj peptide B [Mass/volume] in BloodB-type natriuretic peptide Lab Routine Chronic hypertension affecting 20 weeks gestation of 1 Occurrences starting 05/17/2025 until 05/17/2026[employer] Work Phone: comment on above:1 Occurrences starting 05/17/2025 until 05/17/2026Natriuretic peptide B [Mass/volume] in BloodB-type natriuretic peptide Lab Routine Chronic hypertension affecting 20 weeks gestation of 05/17/2025 9:54 AM [facility] HospitalNeisseria gonorrhoeae DNA [Presence] in Unspecified specimen by PEACE with probe detectionNeisseria gonorrhea DNA probe, direct Lab Routine Screen for STD (sexually transmitted disease) Ordered: 04/25/2025[facility] HospitalComment on above:Ordered: 04/25/2025 End: 63-74-3684Brguuzn, urine, 24 hourProtein, urine, 24 hour Lab Routine Chronic hypertension affecting 20 weeks gestation of 1 Occurrences starting 05/17/2025 until 05/17/2026[facility] SystemComment on above:1 Occurrences starting 05/17/2025 until 05/17/2026Reagin Ab [Presence] in Serum by RPRRPR Lab Routine Missed menses , unspecified gestational age ([facility]) Ordered: 03/01/2025[facility] HealthcareComment on above:Ordered: 03/01/2025Rubella antibody, IgGRubella antibody, IgG Lab Routine Missed menses , unspecified gestational age ([facility]) Ordered: 03/01/2025[facility] HealthcareComment on above:Ordered: 03/01/2025SURESWAB(R) ADVANCED VAGINITIS PLUS, TMASURESWAB(R) ADVANCED VAGINITIS PLUS, TMA Pathology and Cytology Routine Screen for STD (sexually transmitted disease) Ordered: 04/25/2025[facility] [employer] Work Phone: comment on above:Ordered: 04/25/2025Thyrotropin [Units/volume] in Serum or PlasmaTSH Lab Routine PCOS (polycystic ovarian syndrome) Ordered: 04/10/2024[facility] HealthcareComment on above:Ordered: 04/10/2024 Thyroxine (T4) free [Mass/volume] in Serum or PlasmaT4, free Lab Routine PCOS (polycystic ovarian syndrome) Ordered: 04/10/2024[facility] HealthcareComment on above:Ordered: 04/10/2024 Payers DatePayer CategoryPayerPoly [id number]-pay2023Medicaid [id number] [id number] [id number] 2.840.1.439576.3.57[id number] 2.0.1.712793.3.579.2.039619-97-0025Dratgbh [id number] 2.0.1.292145.3.57[id number] 2.840.1.409382.3.57[id number] 2.16.840.1.031911.3.57[id number] 2.840.1.887127.3.57[id number] 2..840.1.879835.3.57[id number] 2.16.840.1.437898.3.57[id number] 2.840.1.288054.3.57[id number] 2.16.840.1.171210.3.57[id number] 2.0.1.751249.3.57[id number] 2.840.1.423418.3.57[id number] 2.0.1.053696.3.57[id number] 2.0.1.615495.3.57[id number] 2.0.1.265107.3.57[id number] 2.0.1.336608.3.57[id number] 2.0.1.361118.3.57[id number] 2.0.1.758013.3.57[id number] 2.0.1.284392.3.57[id number] 2.0.1.01[id number] 2.840.1.363966.3.579.2.531 Social History DateTypeDetailFacilityStart: 02-22-2024 End: 08-50-4030Kuu Assigned At [facility] Help Remedies Other Start: 09-56-9501Oud Assigned At BirthFeLake County Memorial Hospital - WestTobacco smoking status NHISTobacco smoking consumption unknownPutnam County Memorial HospitalStart: 67-75-7221Ddk assigned at birthNot on fileProSt. Mary'S [facility] SystemStart: 10-09-2022 End: 39-30-4561Ubysaen smoking status NHISNever smoked tobaccoJoint Township District Memorial Hospital SystemStart: 10-09-2022 End: 78-71-2012Phqmkug use and exposureSmokeless tobacco non-userJoint Township District Memorial Hospital SystemStart: 02-22-2024 End: 19-62-1599Btdvdffiq beverage intakeEx-drinker (finding)[facility] SystemStart: 02-22-2024 End: 72-56-8935Bzzdyhr of Social functionProSt. Mary'S [facility] SystemStart: 41-89-3022Mwuyce the past 12 months we worried whether our food would run out before we got money to buy more.Never TrueJoint Township District Memorial Hospital SystemStart: 09-30-2022 End: 54-00-2696OdxGmxijj (finding)[facility] Centertart: 94-00-8718Ftfdgrmfq beverage intakeLifetime non-drinker (finding)[facility] Work Phone: Start: 12-24-2024 End: 25-69-1584Vrbvsoby to SARS-CoV-2 (event)Not sureUnLakeHealth TriPoint Medical CenterStart: 48-05-8629GuxzteulyHNSQ Healthcare Functional Status GnntXfjnmyuohaKrecdxMotpbjin43-20-2550Ehshlom Health Questionnaire 2 item (PHQ- 2) [Reported][facility] Work Phone: [phone]) [phone]yhdpl - suicide severity rating scale screener - recent [C-SSRS][facility] Work Phone: Clinical Notes 10-11-2022 to 06-18-2025 Note Date & FgujYjkrDefzxyvw78-20-5143 History of Present illness Narrative* Yordy Cruz [...] ultrasound, attempt completion in 4 weeks through [facility] serial growth ultrasounds every 4 weeks [...] patient is in complete care of her door and arrival attendant. Patient does have ultrasound and office visit scheduled with us. Thank you for allowing me to participate in the care of Ellen Ramires. If there any questions please do not hesitate to contact us. Yordy Cruz MD Maternal- Medicine [facility] [address] [facility] [address] [place] [phone] This document was created with Cleo technology. Though I make every effort to review the dictation as it is transcribed, on occasion the spoken word can be misinterpreted by the technology leading to inappropriate words, phrases, or sentences. This note is addressed to the requesting provider as a consultation for clinical guidance. Specificmedical abbreviations are occasionally used and those are generally approved by the [place]?Board of?Obstetrics and?Gynecology?as well as?Rama tapia abbreviations. The above plan of care was based solely on the diagnoses for which a consultation was requested. ?More frequent testing may be indicated based on her other medical/obstetrical conditions. The management of other or medical conditions is beyond the scope of requested consultation and will c ontinue to be followed by the primary door and arrival attendant or primary care provider. Note to patient: [...] opinion of the practitioner. documented in this encounterUniversity Hospitals [facility]ly[facility]10-15-2025 History of Present illness Narrative* Rody Qiu, [...] (polycystic ovarian syndrome) 07/30/2024 induced hypertension, antepartum ([facility]) 04/25/2025 Vitamin D deficiency 05/23/2025 H/O pre-eclampsia in prior , currently ([facility]) 05/23/2025 Resolved Ambulatory Problems Diagnosis Date [...] nursing note reviewed. Exam conducted with a warehouse manager present. Vitals: Estimated body mass index is 42.99 kg/m as calculated from the following: Height as of 06/11/24: 5' 8 . Weight as of this encounter: 282 lb 12 oz. BP: 130/76 Patient's last menstrual period was 12/26/2024. ASSESSMENT & PLAN ICD-10-CM 1. Second trimester ([facility]) Z34.92 POCT urinalysis dipstick manually resulted 2. 23 weeks gestation of ([facility]) Z3A.23 Return OB: Patient presents today [...] 06/01/2024 WISDOM TOOTH EXTRACTION documented in this encounterPutnam County Memorial HospitalAmrpkleqrx58-24-9028 History of Present illness Narrative* Rody Qiu [...] ovarian syndrome) 07/30/2024 induced hypertension, antepartum ([facility]) 04/25/2025 Vitamin D deficiency 05/23/2025 H/O pre-eclampsia in prior , currently ([facility]) 05/23/2025 Resolved Ambulatory Problems Diagnosis Date [...] nursing note reviewed. Exam conducted with a warehouse manager present. Vitals: Estimated body mass index is 43.03 kg/m as calculated from the following: Height as of 06/11/24: 5' 8 . Weight as of 05/23/25: 283 lb. BP: Patient's last menstrual period was 12/26/2024. ASSESSMENT & PLAN ICD-10-CM 1. Second trimester ([facility]) Z34.92 2. 22 weeks gestation of ([facility]) Z3A.22 POCT urinalysis dipstick manually resulted [...] of: Rody Qiu NP documented in this encounterPutnam County Memorial HospitalPcxxigtoxi18-14-2851 History of Present illness Narrative* Rody Qiu [...] (polycystic ovarian syndrome) 07/30/2024 induced hypertension, antepartum ([facility]) 04/25/2025 Vitamin D deficiency 05/23/2025 H/O pre-eclampsia in prior , currently ([facility]) 05/23/2025 Resolved Ambulatory Problems Diagnosis Date [...] nursing note reviewed. Exam conducted with a warehouse manager present. Vitals: Estimated body mass index is 43.03 kg/m as calculated from the following: Height as of 06/11/24: 5' 8 . Weight as of this encounter: 283 lb. BP: 142/82 Patient's last menstrual period was 12/26/2024. ASSESSMENT & PLAN ICD-10-CM 1. Second trimester ([facility]) Z34.92 POCT urinalysis dipstick manually resulted 2. 21 weeks gestation of ([facility]) Z3A.21 3. induced hypertension, antepartum ([facility]) O13.9 4. Vitamin D deficiency E55.9 5. H/O pre-eclampsia in prior , currently ([facility]) O09.299 Return OB: Patient presents today [...] and edema. She has been evaluated by [facility] andin the process of obtaining B/P monitoring through durable medical equipment and [facility]. Orders Placed This Encounter Procedures POCT urinalysis dipstick manually resulted Follow Up: Patient is to return to office in 3 week for routine OB appointment. Documented by Melanie Almaraz MA on behalf of: Rody Qiu NP documented in this encounterPutnam County Memorial HospitalTcubygcuwd76-10-9227 History of Present illness Narrative* Bethany Lundy [...] No Have you been seen here at [facility] in a previous ? No Recent ER visits or hospitalizations? Yes, for slicing thumb on mandolin Bring blood sugar log or meter with you today? (Please bring them with you for every visit at [facility]) N/A Flu vaccine (Jun-October)? N/A Any [...] recommended threshold of 160/110. Referenc e: PMID: [id number], 2021. Blood pressures do increase as progresses [...] preeclampsia prevention as is recommended by the [place] [employer]ne[employer] Committee Opinion No. 743. [...] patient is in complete care of her door and arrival attendant. Patient does have ultrasound and office visit scheduled with us. Thank you for allowing me to participate in the care of Ellen Ramires. If there any questions please do not hesitate to contact us. Yordy Cruz MD Maternal- Medicine [facility] [address] [place] [address] This document was created with Cleo technology. Though I make every effort to review the dictation as it is transcribed, on occasion the spoken word can be misinterpreted by the technology leading to inappropriate words, phrases, or sentences. This note is addressed to the requesting provider as a consultation for clinical guidance. Specificmedical abbreviations are occasionally used and those are generally approved by the [place]?Board of?Obstetrics and?Gynecology?as well as?Rama tapia abbreviations. The above plan of care was based solely on the diagnoses for which a consultation was requested. ?More frequent testing may be indicated based on her other medical/obstetrical conditions. The management of other or medical conditions is beyond the scope of requested consultation and will c ontinue to be followed by the primary door and arrival attendant or primary care provider. Note to patient: [...] Blood drawn for cell-free DNA testing per [facility] phlebotomy. Patient tolerated well. documented in this encounterPeoples HospitalWeill [facility] Center09-04-[facility] History of Present illness Narrative* Rody Uyen, PATIENT ACCESS SPECIALIST - 04/25/2025 11:10 AM EDT Reason for [...] ovarian syndrome) 07/30/2024 induced hypertension, antepartum ([facility]) 04/25/2025 Resolved Ambulatory Problems Diagnosis Date [...] nursing note reviewed. Exam conducted with a warehouse manager present. Vitals: Estimated body mass index is 42.88 kg/m as calculated from the following: Height as of 06/11/24: 5' 8 . Weight as of this encounter: 282 lb. BP: 138/82 Patient's last menstrual period was 12/26/2024. ASSESSMENT & PLAN ICD-10-CM 1. Screening, , for anatomic survey ([facility]) Z36.89 CANCELED: US OB 14+ weeks anatomy scan 2. Second trimester ([facility]) Z34.92 POCT urinalysis dipstick manually resulted 3. 17 weeks gestation of ([facility]) Z3A.17 4. Screen for STD (sexually transmitted disease) Z11.3 SURESWAB(R) ADVANCED VAGINITIS PLUS, TMA CHLAMYDIA TRACHOMATIS (GENITO/STI) Neisseria gonorrhea DNA probe, direct 5. Need for maternal serum alpha-protein (MSAFP) screening ([facility]) Z36.1 Alpha fetoprotein, maternal Alpha fetoprotein, maternal 6. induced hypertension, antepartum ([facility]) O13.9 7. Vitamin D deficiency E55.9 [...] of: Caesar Broderick DO documented in this encounterPutnam County Memorial HospitalPeszfgdfpk31-63-1761 History of Present illness Narrative* Karoline Casillas, DIRECTOR OF GRADUATE ADMISSIONS - 04/11/2025 10:30 AM EDT Reason for [...] nursing note reviewed. Exam conducted with a warehouse manager present. Vitals: Estimated body mass index is 42.63 kg/m as calculated from the following: Height as of 06/11/24: 5' 8 . Weight as of this encounter: 280 lb 6.4 oz. BP: 140/86 Patient's last menstrual period was 12/26/2024. ASSESSMENT & PLAN ICD-10-CM 1. 15 weeks gestation of ([facility]) Z3A.15 POCT urinalysis dipstick manually resulted 2. Second trimester ([facility]) Z34.92 POCT urinalysis dipstick manually resulted 3. Acute nonintractable headache, unspecified headache type R51.9 4. BP check Z01.30 Patient presents today for a routine obstetrics appointment. Patient is currently 15w1d with a Estimated Date of Delivery: 10/02/25. Patient is having persistent elevated HTN. Discussed patient being referred to [facility] for management and recommendations for Gestational HTN. Patient is agreeable with referral. Patient to be started on Labetalol 200mg BID. Patient given labs and 24 hour urine to have obtained for baseline testing. Patient aware that once lab results are obtained then referral will be completed, so then all results can be sent to [facility] at onetime. Patient to return to clinic in 4 weeks for routine OB appointment. Patient to reach out to office with any concerns/questions. Documented by Karoline Casillas LPN on behalf of: Caesar Broderick DO documented in this encounterPutnam County Memorial HospitalMexttjxvky56-05-3729 History of Present illness Narrative* Karoline Casillas [...] nursing note reviewed. Exam conducted with a warehouse manager present. Vitals: Estimated body mass index is 42.29 kg/m as calculated from the following: Height as of 06/11/24: 5' 8 . Weight as of this encounter: 278 lb 1.9 oz. BP: 138/80 Patient's last menstrual period was 12/26/2024. ASSESSMENT & PLAN ICD-10-CM 1. 13 weeks gestation of ([facility]) Z3A.13 POCT urinalysis dipstick manually resulted 2. Second trimester ([facility]) Z34.92 POCT urinalysis dipstick manually resulted [...] or undercooked meat, and stay away from formerly [facility]. Patient has been consulted regarding any [...] of: Caesar Broderick DO documented in this encounterPutnam County Memorial HospitalKavkyofiaw84-91-6642 History of Present illness Narrative* Melanie Almaraz [...] manually resulted , unspecified gestational age ([facility]) - Type and screen; Future - ABO/Rh; Future - CBC and differential - Hemoglobin A1c - RPR - Rubella antibody, IgG - Hepatitis B surface antigen - Hepatitis C antibody - HIV-1 and HIV-2 antibodies - Rapid drug screen, urine; Future Encounter for supervision of normal first in first trimester ([facility]) - Rapid drug screen, urine; Future 9 weeks gestation of ([facility]) Nurse Note: Pt uncertain of doing the Lott Billion to one. Advised pt if she does to make sure both labs and Lott is done at the same time. PVU. Pt did state she had a Vit. D deficiency and has a h/o high blood pressure with G1Meghan Uriarte [place] advised patient showed in dating [place] today [...] or undercooked meat, and stay away from formerly [facility]. Patient has also been advised to [...] by: Melanie Almaraz MA documented in this encounterPutnam County Memorial HospitalOfgditnlqo54-03-0425 History of Present illness Narrative* Robbie Lopez MD - 01/03/2025 10:45 AM EDT Images [...] bilateral tubal patency Saline Infused Sonography: None CAPABILITY LEAD Pelvic Ultrasound: 2023 FINDINGS: UTERUS: Normal size [...] 10/2024 Thyroid profile includes TSH FT4 Order: [id number] Component Ref Range & Units 2 mo [...] -- -- -- 2.68 -- -labs done [id number] Relationship Status: Have you ever been ? Yes How many times have you been ? 1 Have you ever had a miscarriage? No How many times have you had a miscarriage? 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 Tadalafil - 10mg as needed Injuries: No STD: No Please select all that are applicable: SA: Yes SA Results: Yes -Done at [facility] 2023- reports was told normal, no [...] family history on file. documented in this [facility] Work Phone: 1(860) 162-632105-15-2025 Instructions* Patient Instructions* Robbie Lopez MD - [...] Lopez 01/03/2025 11:05 AM documented in this [facility] Work Phone: 1(748) 545-364404-29-2025 History of Present illness Narrative* Kitaesther Griggs, [...] nursing note reviewed. Exam conducted with a warehouse manager present. Vitals: Estimated body mass index is [...] after allowing sufficient time to take affect. continuous pickling line pickler and scissors used to remove affected area. Placed in formalin and sent to pathology. Post-procedure instructions given. Follow Up: as needed Documented by Kita Griggs LPN on behalf of: Caesar Broderick DO documented in this encounterPutnam County Memorial HospitalEbzvfynbak39-37-2795 History of Present illness Narrative* Melanie Almaraz [...] nursing note reviewed. Exam conducted with a warehouse manager present. Vitals: Estimated body mass index is [...] of: Caesar Broderick DO documented in this encounterPutnam County Memorial HospitalDexskezecz44-78-8588 History of Present illness Narrative* Karoline Casillas [...] of: Caesar Broderick DO documented in this encounterPutnam County Memorial HospitalNasebcmcwo85-19-8709 History of Present illness Narrative* Kita Griggs [...] nursing note reviewed. Exam conducted with a warehouse manager present. Vitals: Estimated body mass index is [...] of: Caesar Broderick DO documented in this encounterPutnam County Memorial HospitalZrjungrxvz51-93-7546 History of Present illness Narrative* Karoline Casillas [...] nursing note reviewed. Exam conducted with a warehouse manager present. Vitals: Estimated body mass index is [...] of: Caesar Broderick DO documented in this encounterPutnam County Memorial HospitalIbhsokutko74-21-2545 History of Present illness Narrative* Whitney Mert - 05/03/2024 11:40 AM EDT Reason for Appointment: Patient ID: Ellen Ramires is a 34 y.o. female who presents for Pre-op Visit Patient presents today for Pre Op appointment. Patient is scheduled to undergo Diagnostic Laparoscopy, possible FLAKITO, possible FOE, possible BSO, possible Chromopertubation on 06/01/[address] [facility]ick at [facility]. MEDICATIONS Current Outpatient Medications Medication Instructions [...] nursing note reviewed. Exam conducted with a warehouse manager present. Vitals: There is no height or [...] reviewed, and patient is to proceed to [facility] OR. Follow Up: Patient is to follow up between 1-2 weeks post operative to assess proper healing and recovery fromprocedure. Documented by Karoline Casillas LPN on behalf of: Caesar Broderick DO documented in this encounterPutnam County Memorial HospitalTlzoicojpx71-55-9476 History of Present illness Narrative* Kita Griggs, DIRECTOR OF GRADUATE ADMISSIONS - 04/10/2024 9:10 AM EDT Reason for [...] nursing note reviewed. Exam conducted with a warehouse manager present. Vitals: There is no height or [...] of: Caesar Broderick DO documented in this encounterPutnam County Memorial HospitalRlriwwwblu43-95-9970 History of Present illness Narrative* James Fraire [...] Chief Complaint Patient presents with New Patient PATIENT ACCESS SPECIALIST PALPITATIONS SCHED W/ PT LABS HM AT [facility] LABS AT PCP History of [...] MELISSA Noyola Referring Physician: Sabiha Aviles APRN-THEA [address] [place] [address] documented in this [facility]07-22-2024 Miscellaneous Notes* Telephone Encounter - Sheyla Powell CMA - 03/12/2024 2:47 PM EDT Left message for patient to remind them to bring their most current medication list with them to their appointment. documented in this [facility]07-22-2024 Telephone encounter Note* Telephone Encounter - Sheyla Powell CMA - 03/12/2024 2:47 PM EDT Left message for patient to remind them to bring their most current medication list with them to their appointment. [facility] [id number] Evaluation note* Encounter Date Diagnosis Assessment Notes [...] the onset of your symptoms of COVID [employer] Other Chief complaint+Reason for visit Narrative* Chief Complaint sinus pressure, coug h Reason for Visit Contact with and (matt spected) exposure to covid-19 Sore throat Sinusitis [facility] Work Phone: Evaluation note* Diagnosis Onset Date Resolution Status Contact with and (suspected) exposure to covid-19 acuteSore throatacuteSinusitisnoneactive [facility] Work Phone: Evaluation note* Diagnosis Postoperative visit [...] palpitations- Primary Palpitations documented in this encounter [facility] Diagnosis Encounter for fertility planning Acute cystitis without hematuria PCOS (polycystic ovarian syndrome) Polycystic ovaries Fallopian tube disorder Unspecified noninflammatory disorder of ovary, fallopian tube, and broad ligament documented in this encounter [facility] HealthcareEvaluation note* Diagnosis Well woman exam with routine gynecological exam Routine gynecological examination documented in this encounter [facility] HealthcareEvaluation note* Diagnosis Skin mole documented in this encounter [facility] HealthcareEvaluation noteNo assessment information availableGenesis Hospital Work Phone: Evaluation note* Diagnosis Encounter for preprocedural laboratory examination- Primary Abnormal uterine bleeding Unspecified disorder of menstruation and other abnormal bleeding from female genital tract documented in this encounter [facility] Work Phone: Evaluation note* Diagnosis Amenorrhea Absence of menstruation Missed menses , unspecified gestational age ([facility]) Encounter for supervision of normal first in first trimester ([facility]) 9 weeks gestation of ([facility]) Vitamin D deficiency History of hypertension Personal history of other diseases of circulatory system documented in this encounter [facility] HealthcareEvaluation note* Diagnosis 13 weeks gestation of ([facility]) Second trimester ([facility]) state, incidental Acute nonintractable headache, unspecified headache type documented in this encounter [facility] HealthcareEvaluation note* Diagnosis 15 weeks gestation of ([facility]) Second trimester ([facility]) state, incidental Acute nonintractable headache, unspecified headache type BP check Screening for hypertension Gestational hypertension, antepartum ([facility]) induced hypertension, antepartum ([facility]) Transient hypertension of , antepartum documented in this encounter [facility] HealthcareEvaluation note* Diagnosis Hypertension affecting in second trimester- [facility] Diagnosis Screening, , for anatomic survey ([facility]) Encounter for anatomic survey Second trimester ([facility]) state, incidental 17 weeks gestation of ([facility]) Screen for STD (sexually transmitted disease) Screening examination for venereal disease Need for maternal serum alpha-protein (MSAFP) screening ([facility]) induced hypertension, antepartum ([facility]) Transient hypertension of , antepartum Vitamin D deficiency documented in this encounter [facility] HealthcareEvaluation note* Diagnosis Chronic hypertension affecting - [...] W/ PT LABS [facility] LABS AT PCPSpecialtyDiagnoses / ProceduresReferred By Contact Referred To ContactCardiology Diagnoses Heart palpitations Sabiha Aviles, LEAD SYSTEMS ANALYST-[employer] [address] [place] [address] [facility] [address] [address] Referral IDStatusReasonStart DateExpiration DateVisits RequestedVisits [id number] Review Specialty Services Required /[id number] ExamReason CommentsMole removalReasonCommentsInfertilityReasonCommentsAmenorrheaReason CommentsRoutine VisitReasonCommentsgHTNPCOS Care Teams [...] DateEnd Date Judy Caal PCP - [facility] 02/20/24Team MemberRelationshipSpecialtyStart DateEnd Date Judy Caal PCP - [facility] CPC7/09/14Team MemberRelationshipSpecialtyStart DateEnd Date Kromer, Judy PCP - [facility] CPC7Team MemberRelationshipSpecialtyStart DateEnd Date Kromer, Judy PCP - [facility] CPC7Team MemberRelationshipSpecialtyStart DateEnd Date Kromer, Judy PCP - [facility] CPC7Team MemberRelationshipSpecialtyStart DateEnd Date Kromer, Judy PCP - [facility] CPC7Team MemberRelationshipSpecialtyStart DateEnd Date Kromer, Judy PCP - [facility] CPC7Team MemberRelationshipSpecialtyStart DateEnd Date [facility] [address] [place], [place] PCP - GeneralFamily Medicine11/12/22Team MemberRelationshipSpecialtyStart DateEnd Date [facility] [address] [place], [place] PCP - GeneralFamily Medicine11/12/22Team MemberRelationshipSpecialtyStart DateEnd Date [facility] [address] [place], [place] PCP - GeneralFamily Medicine11/12/22Team MemberRelationshipSpecialtyStart DateEnd Date Kromer, Judy PCP - [facility] CPC7Team MemberRelationshipSpecialtyStart DateEnd Date Kromer, Judy PCP - [facility] CPC7/09/14Team MemberRelationshipSpecialtyStart DateEnd Date Kromer, Judy PCP - [facility] CPC7Team MemberRelationshipSpecialtyStart DateEnd Date Kromer, Judy PCP - [facility]02/20/24 Team Status: Inactive Member Role Status Dates Caesar Broderick DO Attending Provider Active Start : December 18, 2024 End: December 18, 2024Team MemberRelationshipSpecialtyStart DateEnd Date June Trinidad LPN Licensed Practical NurseReproductive Endocrinology and Infertility01/01/25Team MemberRelationshipSpecialtyStart DateEnd Date Kromer, Judy PCP - [facility]02/20/24Team MemberRelationshipSpecialtyStart DateEnd Date Kromer, Judy PCP - [facility]02/20/24Team MemberRelationshipSpecialtyStart DateEnd Date Kromer, Judy PCP - [facility]02/20/24Team MemberRelationshipSpecialtyStart DateEnd Date Kromer, Judy PCP - [facility]02/20/24Team MemberRelationshipSpecialtyStart DateEnd Date [facility] [address] [place], [place] PCP - GeneralFamily Medicine11/03/24Team MemberRelationshipSpecialtyStart DateEnd Date [facility] [address] [place] PCP - GeneralFamily Medicine11/03/24Team MemberRelationshipSpecialtyStart DateEnd Date Kromer, Judy PCP - [facility]02/20/24Team MemberRelationshipSpecialtyStart DateEnd Date [facility] [address] [place], [place] PCP - Generalmily Medicine11/03/24Team MemberRelationshipSpecialtyStart DateEnd Date [facility] [address] [place] PCP - GeneralFamily Medicine11/03/24Team MemberRelationshipSpecialtyStart DateEnd Date [facility] [address] [place] PCP - Generalmily Medicine11/03/24Team MemberRelationshipSpecialtyStart DateEnd Date Judy Caal PCP - [facility]02/20/24Team MemberRelationshipSpecialtyStart DateEnd Date Afua, Judy PCP - [facility]02/20/24Team MemberRelationshipSpecialtyStart DateEnd Date [facility] [address] [place] PCP - [facility]11/03/24 Goals (unrecognized section and content) Goals may be documented in a n alternate section INFORMATION SOURCE (unrecogn ized section and content) DATE CREATED AUTHOR 12/29/2024 [facility] DATE CREATED AUTHOR AUTHOR'S ORGANIZ ATION 01/07/2025 [facility] DATE CREATED AUTHOR AUTHOR'S ORGANIZ ATION 06/06/2025 [facility] [place] DATE CREATED AUTHOR AUTHOR'S ORGANIZ ATION 06/19/2025 [facility] DATE CREATED AUTHOR AUTHOR'S ORGANIZ ATION 06/20/2025 [facility] FOR RECORDS PERTAINING TO PATIENTS WHO [...] BE BASED ON THE PRIMARY CLINICAL RECORDS. [email or web address] [facility]. provides no warranty or guarantee of the accuracy or completeness of information in this document.
--- OUTSIDE RECORDS SUMMARY | 2025-06-20 22:10 | XMS_ITS | Clinical Summary ---
Author Organization [facility] Healthcare Address [address] [place] [address] Care Team Providers Care Sample Dye Mixer Name Role Phone Judy Caal Unavailable Unavailable Allergies No known active allergies Medications MedicationSigDispense QuantityRefillsLast FilledStart DateEnd DateStatus sertraline (Zoloft) 25 MG tablet Take 50 mg by mouth 1 (one) time each day at the same time5Active Procardia XL 30 MG 24 hr tablet Take 30 mg by mouth Daily5Active NIFEdipine XL (Procardia XL) 60 MG 24 hr tablet Indications:Chronic hypertension affecting ([facility])Take 1 tablet (60 mg) by mouth Daily Take 1 tablet in the am. Do not crush, chew, or split. 30 tablet 516Active labetalol (Normodyne) 200 MG tablet Indications:Second trimester ([facility]),Gestational hypertension, antepartum ([facility])TAKE 1 TABLET (200 MG) BY MOUTH IN THE MORNING AND AT BEDTIME 60 tablet 51Discontinued(Ineffective) Active Problems ProblemNoted DateDiagnosed DateVitamin D huoevqfdin04/02/2025H/O pre-eclampsia in prior , currently ([facility])05/23/2025Pregnancy induced hypertension, antepartum ([facility])04/25/2025Fallopian tube hqirkevo66/09/2024 PCOS (polycystic ovarian syndrome)07/30/2024Estimated Date of Delivery LtwphowtTrs87/11/2026ased on last menstrual period of 12/26/2024 Encounters DateTypeDepartmentCare LwcwUheuzasboqd09/15/2025 8:50 AM EDTRoutine [facility] [address] [place] [address] Rosie Qiu NP Second trimester ([facility]); 23 weeks gestation of ([facility])06/05/2025amboo flowsheet [facility] [address] [place] [address] Rosie Qiu NP 06/04/2025Patient Outreach [facility] [address] [place] [address] Bethany Sheehan LPN 05/31/2025bstract [facility] [address] [place] [address] Bethany Sheehan LPN 05/30/2025 3:20 PM EDTRoutine [facility] [address] [place] [address] Rosie Qiu NP Chronic hypertension affecting ([facility]) (Primary Dx); Second trimester ([facility]); 22 weeks gestation of ([facility])05/30/2025amb flowsheet [facility] [address] [place] [address] Rosie Qiu NP 05/29/20254590Tlmmdg08/07/2025Telephone [facility] [address] [place] [address] Melanie Almaraz MA 05/23/2025 2:30 PM EDTRoutine [facility] [address] [place] [address] Rosie Qiu NP Second trimester ([facility]); 21 weeks gestation of ([facility]); induced hypertension, antepartum ([facility]); Vitamin D deficiency; H/O pre-eclampsia in prior , currently ([facility])05/23/2025 Clinisync Result Encounter NOM[facility] External Department Unsolicited Israel Broderick, 05/23/2025amboo flowsheet [facility] [address] [place] [address] Rosie Qiu, JEM 05/22/20259518Tcbjby55/29/2025bstract [facility] [address] [place] [address] Tsering Willingham AR 05/17/2025External Result Encounter [facility] [address] [place] [address] Israel Broderick DO 05/15/2025Refill [facility] [address] [place] [address] Israel Broderick DO Second trimester ([facility]); Gestational hypertension, antepartum ([facility])05/15/2025Telephone [facility] [address] [place] [address] Israel Broderick DO 04/26/2025bstract [facility] [address] [place] [address] Tsering Willingham MA 04/26/2025Telephone [facility] [address] [place] [address] Tsering Willingham AR 04/25/2025 11:10 AM EDTRoutine [facility] [address] [place] [address] Israel Broderick DO Screening, , for anatomic survey ([facility]); Second trimester ([facility]); 17 weeks gestation of ([facility]); Screen for STD (sexually transmitted disease); Need for maternal serum alpha-protein (MSAFP) screening ([facility]); induced hypertension, antepartum ([facility]); Vitamin D raaohosufe73/04/2025amboo flowsheet [facility] [address] [place] [address] Israel Broderick, DO 04/23/20258866Kqqyct30/31/2025linisync Result Encounter NOMS External Department Unsolicited Israel Broderick, DO 04/17/2025linisync Result Encounter NOMS External Department Unsolicited Israel Broderick, DO 04/11/2025 10:30 AM EDTRoutine [facility] [place] [address] Israel Broderick, DO 15 weeks gestation of ([facility]); Second trimester ([facility]); Acute nonintractable headache, unspecified headache type; BP check; Gestational hypertension, antepartum ([facility]); induced hypertension, antepartum ([facility])04/11/2025amboo flowsheet [facility] [place] [address] Israel Broderick, 03/28/2025 11:40 AM EDTRoutine [facility] [place] [address] Israel Broderick, DO 13 weeks gestation of ([facility]); Second trimester ([facility]); Acute nonintractable headache, unspecified headache type03/28/2025amboo flowsheet [facility] [place] [address] Israel Broderick, 03/21/2025Telephone [facility] [address] [place] [address] Bethany Simon PA 03/20/2025linisync Result Encounter NOMS External Department Unsolicited Israel Broderick DO from Last 3 Months Family History Medical HistoryRelationNameCommentsepilepsyBrotherDiabetesFatherHTNFather Pancreatic cancerMaternal GrandfatherhtnMotherRelationNameStatusCommentsBrother FatherMaternal GrandfatherMother Social History Tobacco UseTypesPacks/DayYears UsedDateSmoking Tobacco: Never AssessedPHQ-2 AnswerDate RecordedPatient Health Questionnaire-2 Twzgu957 Estimated Date of IslvkcbnCubarowwWaj73/11/2026ased on last menstrual period of 12/26/2024Sex and Gender InformationValueDate RecordedSex Assigned at BirthNot on fileLegal VqnFdcesb43/06/2024 9:48 AM EDTGender IdentityNot on fileSexual OrientationNot on file Last Filed Vital Signs Vital SignReadingTime TakenCommentsBlood Ixuehcqq594/7606/05/2025 9:03 AM EDT Pulse--Temperature--Respiratory Rate--Oxygen Saturation--Inhaled Oxygen Concentration--Mjwfxh134 kg (282 lb 12 oz)06/05/2025 9:02 AM BWTSizcji145.7 cm (5' 8 )06/11/2024 2:39 PM EDTBody Mass Index42.9906/11/2024 2:39 PM EDT Plan of Treatment DateTypeDepartmentCare Team (Latest Contact Info)Nybkhpebmmt72/03/2025 1:50 PM ESTRoutine NOMTrent [facility] [address] [place] [address] [place] [address] Israel Broderick DO [address] [place] [address] 12/16/2025 3:00 PM EDTOffice Visit [facility] [address] [place] [address] [place] [address] Israel Broderick DO [address] [place], [place] [phone] Health MaintenanceDue DateLast DoneCommentsMMR Vaccines (1 of 1 - Standard series)1993DTaP/Tdap/Td Vaccines (1 - Tdap)1999Varicella Vaccines (1 of 2 - 13+ 2-dose series)2005Hepatitis B Vaccines (1 of 3 - 19+ 3-dose series)2011HPV Vaccines (1 - 3-dose SCDM series)2019COVID-19 Vaccine (1 - season)2025Influenza Vaccine (#1)2025HPV/Cotest 8011/23/2022ervical Cancer Fwksigicb11/21/2028Pap Smear12/11/2027 12/10/2024, 11/19/2022HIB VaccinesAged OutNo longer eligible [...] this topic Procedures Procedure NamePriorityDate/TimeAssociated DiagnosisCommentsPOCT URINALYSIS EEAZXHFISjhlgyf79/15/2025 9:03 AM EDT Second trimester ([facility]) POCT URINALYSIS UDUZBBYLUwnybkk19/09/2025 3:24 PM EDT 22 weeks gestation of ([facility]) AFP, SERUM, OPEN SPINA UWUWVCOmmdbhz79/02/2025 2:30 PM EDT US OB 14+ WEEKS ANATOMY SCAN05/17/2025 4:39 PM EDT RECURRENT VAGINITIS (HTRX)Abkyhtj5304/25/2025 3:21 PM EDT POCT URINALYSIS JVRPYZCXNxyckox79/04/2025 11:38 AM EDT Second trimester ([facility]) TBH TOTAL PROTEIN 24 HOUR HAKIWXhwqyrg38/31/2025 7:00 AM EDT ALL IORSntjqxm82/27/2025 1:21 PM EDT CCF TERCeecfej47/27/2025 1:21 PM EDT ALL URIC WNNCQkjethy14/27/2025 1:21 PM EDT TBH POFSVQDVUAQtwxsbv69/27/2025 1:21 PM EDT ALL NMCXfknyra80/27/2025 1:21 PM EDT CCF VPKKPyxoant88/27/2025 1:21 PM EDT SRMCOH PROTHROMBIN TIME INR W/O ZJTUBcfhuzb84/27/2025 1:21 PM EDT ALL CBC WITH AUTO UKXGMfioist83/27/2025 1:21 PM EDT POCT URINALYSIS PPGTMLKHUanovpo43/21/2025 11:06 AM EDT 15 weeks gestation of ([facility]) Second trimester ([facility]) POCT URINALYSIS UYNFGTTVNueapmd36/07/2025 11:44 AM EDT 13 weeks gestation of ([facility]) Second trimester ([facility]) HBSAG YZWSIOHrqfdxt01/30/2025 12:48 PM EDT RAPID PLASMA REAGIN, NDMBWGayoqlu35/30/2025 12:48 PM EDT HIV AB/P24 AG WITH RWGYWCBgnojhd39/30/2025 12:48 PM EDT HCV ANTIBODY RFX TO QUANT EIKObuccdg83/30/2025 12:48 PM EDT ALL RUBELLA IGG IFRiqhuks07/30/2025 12:48 PM EDT ALL TYPE AND NOOSWKCevanvb77/30/2025 12:48 PM EDT MLR HEMOGLOBIN I7WDkxhxhf42/30/2025 12:48 PM EDT ALL CBC WITH AUTO NCRZOozutbx49/30/2025 12:48 PM EDT TB DRUG SCREEN RAPID (URINE)Vqxyvqu1103/20/2025 12:33 PM EDT PAP NTLNFAbzqbdu28/21/2025 12:00 AM EDTfrom Last 3 Months or [...] Location / LateralityCollection Method / VolumeCollection TimeReceived RuezQheup91/15/2025 9:03 AM EDT Narrative Authorizing ProviderResult TypeResult StatusRosie Qiu NPPOINT OF CARE TEST ENTER/EDIT ORDERABLESFinal Result * AFP, SERUM, OPEN SPINA BIFIDA (05/23/2025 2:30 PM EDT)ComponentValueRef Range Test MethodAnalysis TimePerformed AtPathologist SignatureRESULTSReport.TBHTEST RESULTS:*Screen Negative*.TBHGEST. AGE ON COLLECTION DATE21.1. weeksTBHGESTAT. AGE BASED ONLMP.TBHComment: Recalculations are not recommended when gestational dating by LMP and ultrasound are within 10 days. MATERNAL AGE AT EDD33.5. yrTBHRACECaucasian.NMWPYMUJQ529. lbsTBHINSULIN DEP DIABETESNo.TBHMULTIPLE GESTATIONNo.TBHAFP VALUE38.2. ng/mLTBHAFP MOM0.85.TBHOSBR RISK 1 [id number].TBHINTERPRETATIONComment.TBHComment: Interpretation: Screen Negative This result is screen [...] Customer Services to discuss available options. ??The [employer] recommends amniocentesis be offered to women age 35 and older. COMMENT:Comment.TBHComment: Gema Ortez, Ph.D., [facility] Director References: Available Upon Request. Multiples Of Median Cutoffs ?For AFP Elevations Kumar ?? 2.5 ? Black ?2.8 IDD ? 2.0 ? Twins ?4.5 ?Abbreviation Definitions IDD - Insulin Dep Diabetes OSBR - Open Spina Bifida Risk For further inquiries contact [employer] at [phone]. This test was developed and its performance characteristics determined by [facility]. It has not been cleared or approved by the Food and Drug Administration. Performed at: ??TG - [facility] [address], [place], [place] [id number] Assurance Services Manager Health Care: Jesus Saleh [facility], Phone: ??[phone] Specimen (Source)Anatomical Location / LateralityCollection Method / Volume Collection TimeReceived Time05/23/2025 2:30 PM EDT1 2:40 PM EDT Narrative CLINISYNC - 05/25/2025 1:07 AM EDT N N LMP [id number] 2 9 N 1 282 N N N N N White/ Authorizing ProviderResult TypeResult StatusCorey Davie DOLAB BLOOD ORDERABLES Final ResultPerforming OrganizationAddressCity/State/ZIP CodePhone Number [facility] * US OB 14+ weeks anatomy scan (05/17/2025 4:39 PM EDT)Anatomical Region LateralityModalityBodyUltrasoundSpecimen (Source)Anatomical Location / LateralityCollection Method / VolumeCollection TimeReceived Time05/17/2025 4:39 PM EDT Narrative 05/17/2025 4:39 PM EDT THIS EXAM WAS PERFORMED AT [facility] NAME: ??PAULA HUGHES : 1990 SEX: F Accession Number: [id number] ORDERING PHYSICIAN: ISRAEL BRODERICK REFERRING PHYSICIAN: ISRAEL BRODERICK Coding Procedures ? 80317: Ultrasound, uterus, real time with image documentation, and maternal evaluation ? plus detailed anatomic examination, transabdominal approach;single or first gestation ? 00387: Ultrasound, uterus, real time with image documentation, transvaginal Indication Screening for Anatomic Survey , Screening for cervical length , Anxiety , Depression , Gestational hypertension without significant proteinuria , Obesity in , History of gestational hypertension. History OB History ? 2. Para 1 ? [id number] Maternal Assessment Physical Exam ??Height 173 cm, [...] (oz) ? 13 oz EFW by: ?Hadlock (NSS-CR-EY-FL) Extended Tibia ??23.0 mm 18w 1d 2% [...] Heart/Thorax: RVOT view. LVOT view. 3-vessel view. 8-rtueyo-kyxtlqm view. Situs. Bicaval view. Cardiac position. ? [...] left ovarian cyst noted. Recommendations Please see [facility] documentation from today. The patient is scheduled in four to six week(s) to complete anatomic survey. Subsequent follow up or other follow up as clinically determined by primary OB provider unless otherwise specified by [facility]. Results forwarded to ordering provider so they can follow up with the patient as necessary. Procedure Note Radiology, Radiologist, MD - 05/17/2025 THIS EXAM WAS PERFORMED AT [facility] NAME: PAULA HUGHES : 1990 SEX: F Accession Number: [id number] ORDERING PHYSICIAN: ISRAEL BRODERICK REFERRING PHYSICIAN: ISRAEL BRODERICK Coding Procedures 49302: Ultrasound, uterus, real time with image documentation, and maternal evaluation plus detailed anatomic examination, transabdominalapproach;single or first gestation 79434: Ultrasound, uterus, real time with imagedocumentation, transvaginal Indication Screening for Anatomic Survey , Screening for cervical length , Anxiety , Depression , Gestational hypertension without significant proteinuria , Obesity in , History of gestational hypertension. History OB History 2. Para 1 Q9F1F0N3 Maternal Assessment Physical Exam Height 173 cm, [...] EFW (oz) 13 oz EFW by: Hadlock (UHM-KG-PF-FL) Extended Tibia 23.0 mm 18w 1d 2% [...] Heart/Thorax: RVOT view. LVOT view. 3-vessel view. 0-acnbsp-bjvzkox view.Situs. Bicaval view. Cardiac position. Cardiac axis. [...] EDT)ComponentValue Ref RangeTest MethodAnalysis TimePerformed AtPathologist SignatureATOPOBIUM WZHTMGI218.961 - 24.689 ppm04/26/2025 6:40 AM EDTHealthTrackRx at [facility] ATOPOBIUM VAGINAENot Lghklmat68.961 - 24.689 ppm04/26/2025 6:40 AM EDT [facility] at [facility]PortBVAB 2,3 (BACTERIAL VAGINOSIS ASSOCIATED BACTERIA 2, 3); MOBILUNCUS SPP24.556(A)19.961 - 24.689 ppm04/26/2025 6:40 AM EDT [facility]BV[facility] 2,3 (BACTERIAL VAGINOSIS ASSOCIATED BACTERIA 2, 3); MOBILUNCUS SPPDetected(A)19.961 - 24.689 ppm04/26/2025 6:40 AM EDT [facility]CANDIDA ALBICANS, PARAPSILOSIS, IIDWHNEMVK522.000 - 30.347 ppm04/26/2025 6:40 AM EDTHealthTrackRx at LabPortCANDIDA ALBICANS, PARAPSILOSIS, TROPICALISNot Avwwlapr24.000 - 30.347 ppm04/26/2025 6:40 AM EDT [facility]CANDIDA PTCPWCHF111.000 - 31.618 ppm04/26/2025 6:40 AM EDTHealthTrackRx at LabPortCANDIDA GLABRATANot Dyyuuzsx22.000 - 31.618 ppm 04/26/2025 6:40 AM EDTHealth[facility]Rx at [facility] YBWEGR703.000 - 30.873 ppm04/26/2025 6:40 AM EDTHealthTrackRx at [facility] CenterCANDIDA KRUSEINot Detected 23.000 - 30.873 ppm04/26/2025 6:40 AM EDTHealthTrackRx at [facility] CenterCHLAMYDIA MAECAVFFVXF435.000 - 31.586 ppm04/26/2025 6:40 AM EDTHealthTrackRx at [facility] CHLAMYDIA TRACHOMATISNot Rwhdpina45.000 - 31.586 ppm04/26/2025 6:40 AM EDT [facility] CenterGARDNERELLA XFHDVIJUL077.961 - 24.689 ppm04/26/2025 6:40 AM EDTHealthTrackRx at [facility] CenterGARDNERELLA VAGINALISNot Goanxwsz29.961 - 24.689 ppm04/26/2025 6:40 AM EDTHealthTrackRx at [facility] CenterMEGASPHAERA (TYPES 1, 2)019.961 - 24.689 ppm04/26/2025 6:40 AM EDTHealthTrackRx at [facility] MEGASPHAERA (TYPES 1, 2)Not Bmbtucza37.961 - 24.689 ppm04/26/2025 6:40 AM EDT [facility] CenterNEISSERIA NRKZNVXCLYE563.000 - 32.587 ppm04/26/2025 6:40 AM EDTHealthTrackRx at [facility] CenterNEISSERIA GONORRHOEAENot Cveipsyl93.000 - 32.587 ppm04/26/2025 6:40 AM EDTHealthTrackRx at [facility] CenterTRICHOMONAS VAGINALIS0 23.000 - 31.995 ppm04/26/2025 6:40 AM EDTHealthTrackRx at [facility] CenterTRICHOMONAS VAGINALISNot Nvchxiqm10.000 - 31.995 ppm04/26/2025 6:40 AM EDTHealthTrackRx at [facility] CenterMYCOPLASMA KBNHSGZTPG545.961 - 24.689 ppm04/26/2025 6:40 AM EDT [facility] CenterMYCOPLASMA GENITALIUMNot Iafulayt81.961 - 24.689 ppm 04/26/2025 6:40 AM EDTHealthTrackRx at [facility] CenterSpecimen (Source)Anatomical Location / LateralityCollection Method / VolumeCollection TimeReceived Time Otcnfm0104/25/2025 3:21 PM EDT04/26/2025 1:52 AM EDT Narrative Authorizing ProviderResult TypeResult StatusCorey Davie DOLAB BLOOD ORDERABLES Final ResultPerforming OrganizationAddressCity/State/ZIP CodePhone Number [facility] [address] [place] [address] * [facility] TOTAL PROTEIN 24 HOUR URINE [...] AtPathologist SignatureCREATININE0.560.55 - 1.02 mg/dL TBHTBH EGFR-AF BRAZILIAN>60>=60 mL/min/1.73m 2TBHTBH EGFR-NON AF BRAZILIAN>60 >=60 mL/min/1.73m 2TBHSpecimen (Source)Anatomical Location / Laterality [...] 1:21 PM EDT04/17/2025 1:22 PM EDT Narrative CLINISYSD - 04/17/2025 1:54 PM EDT Authorizing ProviderResult TypeResult StatusCorey Davie DOCLINISYNCFinal Result Performing OrganizationAddGuthrie Robert Packer Hospitalty/State/ZIP CodePhone Number [facility] * [facility] AST (04/17/2025 1:21 PM EDT)ComponentValueRef RangeTest MethodAnalysis TimePerformed AtPathologist SignatureASPARTATE AMINO PHTTTWVNSJZ2968 - 37 U/L TBHSpecimen (Source)Anatomical Location / LateralityCollection Method / Volume Collection TimeReceived Time04/17/2025 1:21 PM EDT04/17/2025 1:22 PM EDT Narrative CLINISYNC - 04/17/2025 1:56 PM EDT Authorizing ProviderResult TypeResult StatusCorey Davie DOCLINISYNCFinal Result Performing OrganizationAddGuthrie Robert Packer Hospitalty/State/ZIP CodePhone Number [facility] * [facility] APTT (04/17/2025 1:21 PM EDT)ComponentValueRef RangeTest MethodAnalysis TimePerformed AtPathologist SignaturePARTIAL THROMBOPLASTIN TIME26.522.3 - 36.2 secTBHSpecimen (Source)Anatomical Location / LateralityCollection Method / VolumeCollection TimeReceived Time04/17/2025 1:21 PM EDT04/17/2025 1:22 PM EDT Narrative CLINISYNC - 04/17/2025 1:54 PM EDT Authorizing ProviderResult TypeResult StatusCorey Davie DOCLINISYNCFinal Result Performing OrganizationAddressCity/State/ZIP CodePhone Number [facility] * ALL URIC ACID (04/17/2025 1:21 PM EDT)ComponentValueRef RangeTest Method Analysis TimePerformed AtPathologist SignatureURIC ACID5.12.6 - 6.0 mg/dLTBH Specimen (Source)Anatomical Location / LateralityCollection Method / Volume Collection TimeReceived Time04/17/2025 1:21 PM EDT04/17/2025 1:22 PM EDT Narrative CLINISYNC - 04/17/2025 1:56 PM EDT Authorizing ProviderResult TypeResult StatusCorey Davie DOCLINISYNCFinal Result Performing OrganizationAddressCity/State/ZIP CodePhone Number [facility] * ALL LDH (04/17/2025 1:21 PM EDT)ComponentValueRef RangeTest MethodAnalysis TimePerformed AtPathologist SignatureLACTATE [id number] - 234 U/LTBH Specimen (Source)Anatomical Location / LateralityCollection Method / Volume Collection TimeReceived Time04/17/2025 1:21 PM EDT04/17/2025 1:22 PM EDT Narrative CLINISYNC - 04/17/2025 1:56 PM EDT Authorizing ProviderResult TypeResult StatusCorey Davie DOCLINISYNCFinal Result Performing OrganizationAddGuthrie Robert Packer Hospitalty/State/ZIP CodePhone Number [facility] * (ABNORMAL) ALL CBC WITH AUTO [...] - 35.2 g/dLTBHTBH RDW12.311.0 - 15.0 %TBHTBH [id number] - 450 10 3/uLTBHTBH MPV10.29.5 - 13.5 [...] Davie STRICKLANDLINISYNCFinal Result Performing OrganizationAddressCity/State/ZIP CodePhone Number [facility] * ALL BUN (04/17/2025 1:21 PM EDT)ComponentValueRef RangeTest MethodAnalysis TimePerformed AtPathologist SignatureBLOOD UREA NITROGEN7.07.0 - 18.0 mg/dLTBH Specimen (Source)Anatomical Location / LateralityCollection Method / Volume Collection TimeReceived Time04/17/2025 1:21 PM EDT04/17/2025 1:22 PM EDT Narrative CLINISYNC - 04/17/2025 1:56 PM EDT Authorizing ProviderResult TypeResult StatusCorey Davie DOCLINISYNCFinal Result Performing OrganizationAddressCity/State/ZIP CodePhone Number [facility] * HBSAG SCREEN (03/20/2025 12:48 PM EDT)ComponentValueRef RangeTest Method Analysis TimePerformed AtPathologist SignatureHBSAG SCREENNegativeNegativeTBH Comment: Performed at: ??[address] ??[id number] Assurance Services Manager Health Care: Yobany Blount PhD, Phone: ??[phone] Specimen (Source)Anatomical Location / LateralityCollection Method / [...] utilized, such as Treponema pallidum (Syphilis) Screening Diana (798330) or Rapid Plasma Reagin (RPR) Test With Reflex to Quantitative RPR and Confirmatory Treponema pallidum Antibodies (761739). Performed at: ??[address] ??[id number] Assurance Services Manager Health Care: Yobany Blount PhD, Phone: ??[phone] Specimen (Source)Anatomical Location / LateralityCollection Method / Volume Collection TimeReceived Time03/20/2025 12:48 PM EDT03/20/2025 12:51 PM EDT Narrative CLINISYNC - 03/21/2025 11:11 AM EDT Authorizing ProviderResult TypeResult StatusCorey Davie DOLAB BLOOD ORDERABLES Final ResultPerforming OrganizationAddressty/State/ZIP CodePhone Number [facility] * HIV AB/P24 AG WITH REFLEX (03/20/2025 12:48 PM EDT)ComponentValueRef RangeTest MethodAnalysis TimePerformed AtPathologist SignatureHIV AB/P24 AG SCREENNon ReactiveNon ReactiveTBHComment: HIV-1/HIV-2 antibodies and HIV-1 p24 antigen were NOT detected. There is no laboratory evidence of HIV infection. HIV Negative Performed at: ?? - [facility] [address] ??[id number] Assurance Services Manager Health Care: Yobany Blount PhD, Phone: ??[phone] Specimen (Source)Anatomical Location / LateralityCollection Method / Volume Collection TimeReceived Time03/20/2025 12:48 PM EDT03/20/2025 12:51 PM EDT Narrative [facility] - 03/21/2025 5:07 AM EDT Authorizing ProviderResult TypeResult StatusCorey Davie DOLAB BLOOD ORDERABLES Final ResultPerforming OrganizationAddressty/State/ZIP CodePhone Number [facility] * HCV ANTIBODY RFX TO QUANT [...] 12:48 PM EDT03/20/2025 12:51 PM EDT Narrative [facility] - 03/21/2025 5:07 AM EDT Authorizing ProviderResult TypeResult StatusCorey Davie DOLAB BLOOD ORDERABLES Final ResultPerforming OrganizationAddressCity/State/ZIP CodePhone Number [facility] * MLR HEMOGLOBIN A1C (03/20/2025 12:48 PM EDT)ComponentValueRef RangeTest Method Analysis TimePerformed AtPathologist SignatureGLYCOHEMOGLOBIN A1C5.14.5 - 6.2 %TBHComment: ADA RECOMMENDED LIMIT 4.0 - 6.0 ADA THERAPEUTIC TARGET < 7.0 ACTION SUGGESTED > 7.0 ESTIMATED AVERAGE UHMOOLR671hl/dLTBHSpecimen (Source)Anatomical Location / LateralityCollection Method / VolumeCollection TimeReceived Time03/20/2025 12:48 PM EDT03/20/2025 12:51 PM EDT Narrative CLINISYNC - 03/20/2025 2:20 PM EDT Authorizing ProviderResult TypeResult StatusCorey Davie DOCLINISYNCFinal Result Performing OrganizationAddGuthrie Robert Packer Hospitalty/State/ZIP CodePhone Number [facility] * ALL TYPE AND SCREEN (03/20/2025 12:48 PM EDT)ComponentValueRef RangeTest MethodAnalysis TimePerformed AtPathologist SignatureBLOOD TYPEB PositiveTBH ANTIBODY SCREENNEGATIVETBHSpecimen (Source)Anatomical Location / Laterality Collection Method / VolumeCollection TimeReceived Time03/20/2025 12:48 PM EDT 03/20/2025 12:51 PM EDT Narrative [facility] - 03/20/2025 2:38 PM EDT [facility] , ?? Authorizing ProviderResult TypeResult StatusCorey Broadway Community HospitalLINISYNCFinal Result Performing OrganizationAddressty/State/ZIP CodePhone Number [facility] * ALL RUBELLA IGG AB (03/20/2025 12:48 PM EDT)ComponentValueRef RangeTest Method Analysis TimePerformed AtPathologist SignatureRUBELLA ANTIBODIES, IGG1.99 Immune >0.99 indexTBHComment: Non-immune <0.90 ?Equivocal ??0.90 - 0.99 Immune >0.99 Performed at: ?? - [facility] [address], [place], [place] ??[id number] Assurance Services Manager Health Care: Yobany Blount PhD, Phone: ??[phone] Specimen (Source)Anatomical Location / LateralityCollection Method / Volume Collection TimeReceived Time03/20/2025 12:48 PM EDT03/20/2025 12:51 PM EDT Narrative [facility] - 03/21/2025 5:07 AM EDT Authorizing ProviderResult TypeResult StatusCorey Davie DOCLINISYNCFinal Result Performing OrganizationAddressCity/State/ZIP CodePhone Number [facility] * [facility] DRUG SCREEN RAPID (URINE) [...] 12:33 PM EDT03/20/2025 12:58 PM EDT Narrative [facility] - 03/20/2025 2:02 PM EDT Authorizing ProviderResult TypeResult StatusCorey Davie DOCLINISYNCFinal Result Performing OrganizationAddressCity/State/ZIP CodePhone Number [facility] * Pap Smear (12/10/2024 12:00 AM EDT)Specimen (Source)Anatomical Location / LateralityCollection Method / VolumeCollection TimeReceived TimeSwabCervical swab / Unknown Narrative Authorizing ProviderResult TypeResult StatusFazio Nurse [facility] ObLAB CYTOLOGY ORDERABLESFinal ResultPerforming OrganizationAddressCity/State/ZIP CodePhone Number EXTERNAL LAB from Last 3 Months or Most Recently Relevant to Health Maintenance Insurance * Guarantor: Antoinette Ramires TypeRelation to PatientDate of BirthPhone Billing AddressPersonal/LotpqnXejt1990 [address] [address] Care Teams Team MemberRelationshipSpecialtyStart DateEnd Date Judy Caal PCP - [facility]02/20/24
--- OUTSIDE RECORDS SUMMARY | 2025-06-20 22:10 | XMS_ITS | Encounter Summary ---
Author Organization [facility] tem Address [id number] [address] [place] [address] Care Team Providers Care Baggage Security Checker Name Role Phone Services, Formerly [facility], [facility] Primary Care Provider Encounter Details DateTypeDepartmentCare Team (Latest Contact Info)Zoclrybdtig31/26/2025Travel Social History Tobacco UseTypesPacks/DayYears UsedDateSmoking Tobacco: NeverSmokeless [...] money to get more.Never True05/17/2025Estimated Date of JoyvfwkqRanyzhjvJpn24/11/2026ased on last menstrual period of 12/26/2024Sex and Gender InformationValueDate RecordedSex Assigned at BirthNot on fileLegal Sex Txshax6909/30/2022 2:11 PM ESTGender IdentityNot on fileSexual OrientationNot on filedocumented as of this encounter Plan of Treatment DateTypeDepartmentCare Team (Latest Contact Info)Oqitdpauzja57/09/2025 2:00 PM ESTOffice Visit Maternal- Medicine at [facility] [address] [place] [phone] Sheila Cruz MD [address] [facility] 1st Floor [place], [place] [phone] documented as of this encounter Visit Diagnoses Not on filedocumented in this encounter Care Teams Team MemberRelationshipSpecialtyStart DateEnd Date Services, Former[facility], [facility] [address] [place], [place] PCP - GeneralFamily Medicine11/03/24documented as of this encounter
--- OUTSIDE RECORDS SUMMARY | 2025-06-20 22:10 | XMS_ITS | Clinical Summary ---
Author Organization [employer] [facility] tem Address [id number] [address] [place] [address] Care Team Providers Care Stainless Steel Finisher Name Role Phone Services, [facility], [facility] Primary Care Provider Allergies No known active [...] tablet Discontinued Active Problems ProblemNoted DateDiagnosed DateHeart lfblkwejizpo22/23/2024Estimated Date of GvgaathgEswmsreeGvp59/11/2026ased on last menstrual period of 12/26/2024 Encounters DateTypeDepartmentCare JgvuJrmzsprrgwf76/28/2025 2:00 PM EDTTelemedicine Maternal- Medicine at [address] [phone] Yordy Cruz MD Chronic hypertension affecting (Primary Dx); 20 weeks gestation of ; Anxiety disorder affecting , antepartum; Acute palmoplantar pustular psoriasis; Severe obesity due to excess calories affecting , antepartum ([facility]) 06/18/2025 7:48 AM EDT - 06/18/2025 11:59 PM EDTHospital Encounter [facility] [address] [place] [address] Acute palmoplantar pustular psoriasis; Chronic hypertension affecting ; Severe obesity due to excess calories affecting , antepartum ([facility]); Hypertension affecting in second trimester Discharge Disposition: Home06/16/20254616Vjqgcr61/03/2025Orders Only Maternal- Medicine at [address] [phone] Bethany Lundy LPN Acute palmoplantar pustular psoriasis; Chronic hypertension affecting ; Severe obesity due to excess calories affecting , antepartum ([facility]); Hypertension affecting in second iutronhzh72/03/2025Orders Only Maternal- Medicine at [facility] [address] [place] [address] Bethany Lundy, RETREAD BUILDER Acute palmoplantar pustular psoriasis (Primary Dx); Chronic hypertension affecting ; Severe obesity due to excess calories affecting , antepartum (CMS-HCC); Hypertension affecting in second yvqsragek55/26/2025 9:00 AM EDTOffice Visit Maternal- Medicine at [facility] [address] [place] [address] Clair Hare MD Hamilton, Ira, MD Chronic hypertension affecting (Primary Dx); Acute palmoplantar pustular psoriasis; Severe obesity due to excess calories affecting , antepartum ([facility]); 20 weeks gestation of gbasqavfw27/26/2025 7:12 AM EDT - 05/17/2025 11:59 PM EDT Hospital Encounter [facility] [address] [place] [address] Hypertension affecting in second trimester Discharge Disposition: Home05/17/2025Results Follow-Up Maternal- Medicine at [facility] [address] [place] [address] Yordy Cruz MD B-type natriuretic fdczkqv7505/17/2025Orders Only Maternal- Medicine at [facility] [address] [place] [address] Bethany Lundy, RETREAD BUILDER Acute palmoplantar pustular psoriasis (Primary Dx); Chronic hypertension affecting ; Severe obesity due to excess calories affecting , antepartum ([facility]); Hypertension affecting in second xqhepsusg38/24/1724Lknpti76/08/2025 6:45 PM EDT - 04/29/2025 7:24 PM EDTEmergency [facility] [address] [place] [phone] Tian Rodriguez MD Laceration of right thumb without foreign body without damage to nail, initial encounter (Primary Dx) Discharge Disposition: Home04/29/20250467Mjxoyg03/02/2025Orders Only Maternal- Medicine at [facility] [address] [place] [phone] Ref Prov, Not In System 04/23/2025bstract Maternal- Medicine at [facility] [address] [place] [phone] Yordy Cruz MD 04/19/2025Orders Only Maternal- Medicine at [facility] [address] [place] [phone] Joann Moise RN Hypertension affecting in second [...] money to get more.Never True05/17/2025Estimated Date of AxvtctbwMjwsbswpQyt85/11/2026ased on last menstrual period of 12/26/2024Sex and Gender InformationValueDate RecordedSex Assigned at BirthNot on fileLegal Sex Pcjldh4509/30/2022 2:11 PM ESTGender IdentityNot on fileSexual OrientationNot on file Last Filed Vital Signs Vital SignReadingTime TakenCommentsBlood Tyhackac813/8405/17/2025 7:51 AM EDT Uftvg593205/17/2025 7:51 AM ZQYToiabbzmiue58.1 ??C (98.7 ??F)04/29/2025 6:26 PM EDTRespiratory Mavv382004/29/2025 6:26 PM EDTOxygen Kfbtnvwzdp13%04/29/2025 6:26 PM EDTInhaled Oxygen Concentration--Tiddkr251.1 kg (282 lb 8 oz)05/17/2025 7:51 AM IVGHdgrue163.7 cm (5' 7.99 )05/17/2025 7:51 AM EDTBody Mass Index42.96 05/17/2025 7:51 AM EDT Plan of Treatment DateTypeDepartmentCare Team (Latest Contact Info)Pkgitfuwdes61/09/2025 2:00 PM ESTOffice Visit Maternal- Medicine at [facility] [address] [place] [address] Yordy Cruz MD [address] [address] Health MaintenanceDue DateLast DoneCommentsDepression Zllsndawu35/29/2004Adult BMI Follow Up Plan2010DTaP,Tdap and Td Vaccines (1 - Tdap)2011 Influenza Ntvbdcw4104/22/2025RSV ( or age 60+ yrs) (1 - Risk 1- dose series)08/07/2025dult BMI Hdexynuel24Tobacco Screening Pap Smear//, 11/23/2022, 11/23/2022, Additional history exists Medical Devices Not on file Procedures Procedure NamePriorityDate/TimeAssociated DiagnosisCommentsUS [facility], 1 QOHKXOztmbey41/28/2025 9:09 AM EDT 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 Severe obesity due to excess calories affecting , antepartum (CMS-HCC) Hypertension affecting in second trimester B-TYPE NATRIURETIC TXCRNICMvreoxy22/26/2025 9:54 AM EDT Chronic hypertension affecting 20 weeks gestation of [facility] COMPREHENSIVE ANATOMIC GJSQKSKdikcne84/26/2025 9:10 AM EDT Hypertension affecting in second trimester UNLISTED LAB WDMSTxdvklp92/26/2025 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 Severe obesity due to excess calories affecting , antepartum (CMS-HCC) Hypertension affecting in second trimester PM ED LACERATION RUFJICKfrnoqr42/08/2025 6:52 PM EDT URIC BJZQKzoodno35/27/2025 1:11 PM UGDVZJNtjnaeo26/27/2025CREATININE, SERUM Ejbyrpc5704/17/2025PROTIME & UOVDveomzz12/27/1037FENCWbshtiz48/27/2025 CBC (NO DIFF)Rakzsqi8504/17/2025 TYPE AND IJVFZUJgeetfx02/30/2025 HEMOGLOBIN B3BSqdzdwu53/30/2025 HEPATITIS B SURFACE NUWUHNWPjbompw50/30/2025 HEPATITIS C(HCV) ANTIBODY W/REFLEX TO PMEXijyrfm44/30/2025 DRUG SCREEN, GDROINadlgpu91/30/2025 CBC (NO DIFF)Rrdcmia7803/20/2025 HIV 1&2 AB/AG SCREEN (P24 AG)Ohrpmxn5703/20/2025 RUBELLA IGG IMMUNE JXBBKBNupryhj99/30/2025 SYPHILIS TOTAL(UNKNOWN SYPHILIS STATUS)Cqwoqvm5303/20/2025 PAP KCTHUDxxzoxp39/04/2023 5:20 AM EDT Encounter for screening for malignant neoplasm of cervix Encounter for screening for human papillomavirus (HPV) from Last 3 Months or Most Recently Relevant to Health Maintenance Results * [facility] FOLLOW-[facility], 1 FETUS (06/18/2025 9:09 AM EDT) Only the most recent of2 resultswithin the time period is included. Anatomical RegionLateralityModalityOB-GYNUltrasoundSpecimen (Source)Anatomical Location / LateralityCollection Method / VolumeCollection TimeReceived Time 06/18/2025 8:05 AM EDT Narrative 06/18/2025 9:41 AM EDT NAME: ??PAULA HUGHES : 1990 SEX: F Accession Number: [id number] ORDERING PHYSICIAN: YORDY CRUZ REFERRING PHYSICIAN: ISRAEL LUNA Coding Procedures ? 46241: Ultrasound, uterus, real time with image documentation, follow up,transabdominal ? approach per fetus Indication Screening for follow-up survey, Anxiety , Depression, Obesity in , History of gestationalhypertension, Obesity in , Chronic hypertension affecting . History OB History ? 2. Para 1 ? [id number] Maternal Assessment Physical Exam ??Height 173 cm, [...] (oz) ? 15 oz EFW by: ?Hadlock (URM-WI-XQ-FL) Extended Tibia ??37.8 mm 24w 2d 27% Gavino Tax Specialist ? 4.7 mm CM ? 4.4 mm [...] Thorax RVOT view. LVOT view. 3-vessel view. 8-kkxbub-guhkego view. ? Right lung. Left lung. Abdomen [...] HUGHES : 1990 SEX: F Accession Number: [id number] ORDERING PHYSICIAN: YORDY CRUZ REFERRING PHYSICIAN: ISRAEL LUNA Coding Procedures 86437: Ultrasound, uterus, real time with image documentation, follow up, transabdominal approach per fetus Indication Screening for follow-up survey, Anxiety , Depression, Obesity in , History of gestational hypertension, Obesity in , Chronic hypertension affecting . History OB History 2. Para 1 [id number] Maternal Assessment Physical Exam Height 173 cm, [...] EFW (oz) 15 oz EFW by: Hadlock (JHG-DH-IL-FL) Extended Tibia 37.8 mm 24w 2d 27% Gavino Tax Specialist 4.7 mm CM 4.4 mm 8% Nicolaides [...] Thorax RVOT view. LVOT view. 3-vessel view. 4-ijzzbb-mfdgrxfdvzj. Right lung. Left lung. Abdomen Abdom. wall. [...] as necessary. Authorizing ProviderResult TypeResult Araceli Cruz [facility] [place] ORDERABLES Final Result * B-type natriuretic peptide (05/17/2025 9:54 AM EDT)ComponentValueRef RangeTest MethodAnalysis TimePerformed AtPathologist KivbnsihmKZK20<=100 pg/mL05/17/2025 11:13 AM [facility] LABORATORYSpecimen (Source)Anatomical Location / LateralityCollection Method / VolumeCollection TimeReceived Time BloodVenous blood / UnknownVenipuncture / Mssdxvz0605/17/2025 9:54 AM EDT 05/17/2025 9:54 AM EDT Narrative Authorizing ProviderResult TypeResult Araceli Cruz MDLAB BLOOD ORDERABLES Final ResultPerforming OrganizationAddressCity/State/ZIP CodePhone Number [facility] [address] [place] [address], * Unlisted Lab Test (05/17/2025)ComponentValueRef RangeTest MethodAnalysis Time Performed AtPathologist SignatureFetal Free Cell Dnalow riskMANUALLY TRANSCRIBED RESULTSSpecimen (Source)Anatomical Location / LateralityCollection Method / VolumeCollection TimeReceived TimeBlood (Arm)05/17/2025 Narrative Authorizing ProviderResult TypeResult Araceli Cruz [facility] BLOOD ORDERABLES Final ResultPerforming OrganizationAddressCity/State/ZIP CodePhone Number [...] ??Infection and pain ??Alternatives discussed: ??No treatment [place] protocol: ??Procedure explained and questions answered to [...] APTT (04/17/2025)ComponentValueRef RangeTest MethodAnalysis TimePerformed At Pathologist MwsanlnjaJEZW29.5MANUALLY TRANSCRIBED RESULTSSpecimen (Source) Anatomical Location / LateralityCollection Method / VolumeCollection Time Received TimeBloodVenous blood / Kcywxie0204/17/2025 Narrative Authorizing ProviderResult TypeResult StatusNot In System Ref ProvLAB BLOOD ORDERABLESFinal ResultPerforming OrganizationAddressCity/State/ZIP CodePhone Number MANUALLY TRANSCRIBED RESULTS * Protime & INR (04/17/2025)Specimen (Source)Anatomical Location / Laterality Collection Method / VolumeCollection TimeReceived TimeBloodVenous blood / Unknown Narrative Authorizing ProviderResult TypeResult StatusNot In System [facility] Park UniversityLAB BLOOD ORDERABLESFinal ResultPerforming OrganizationAddressCity/State/ZIP CodePhone Number MANUALLY TRANSCRIBED RESULTS * CBC without diff (04/17/2025) Only the most recent of2 resultswithin the time period is included. ComponentValueRef RangeTest MethodAnalysis TimePerformed AtPathologist Signature Smgxnuveaf14.9MANUALLY TRANSCRIBED VPLMFMIPebsrvmnmn75.4MANUALLY TRANSCRIBED RESULTSRbc Mcv (Fl) By Automated Count93.2MANUALLY TRANSCRIBED RESULTSPlatelets 251MANUALLY TRANSCRIBED RESULTSSpecimen (Source)Anatomical Location / Laterality Collection Method / VolumeCollection TimeReceived TimeBloodVenous blood / Unknown Narrative Authorizing ProviderResult TypeResult StatusNot In System [facility] Park UniversityLAB BLOOD ORDERABLESFinal ResultPerforming OrganizationAddressCity/State/ZIP CodePhone Number MANUALLY TRANSCRIBED RESULTS * BUN (04/17/2025)Specimen (Source)Anatomical Location / LateralityCollection Method / VolumeCollection TimeReceived TimeBloodVenous blood / Unknown Narrative Authorizing ProviderResult TypeResult StatusNot In System [employer] BLOOD ORDERABLESEdited Result - FinalPerforming OrganizationAddressCity/State/ZIP Code Phone Number MANUALLY TRANSCRIBED RESULTS * Creatinine includes GFR, serum (04/17/2025)Specimen (Source)Anatomical Location / LateralityCollection Method / VolumeCollection TimeReceived Time BloodVenous blood / Unknown Narrative Authorizing ProviderResult TypeResult StatusNot In System [employer] BLOOD ORDERABLESEdited Result - FinalPerforming OrganizationAddressCity/State/ZIP Code Phone Number MANUALLY TRANSCRIBED RESULTS * HIV 1&2 AB/AG Screen (P24 AG) (03/20/2025)ComponentValueRef RangeTest Method Analysis TimePerformed AtPathologist SignatureHIV 1&2 AB/AGNON REACTIVE MANUALLY TRANSCRIBED RESULTSSpecimen (Source)Anatomical Location / Laterality Collection Method / VolumeCollection TimeReceived TimeBloodVenous blood / Unknown Narrative Authorizing ProviderResult TypeResult StatusNot In System [facility] UniversityLAB BLOOD ORDERABLESFinal ResultPerforming OrganizationAddressCity/State/ZIP CodePhone Number MANUALLY [...] Laboratory Medicine ? [address] ? [place] [id number] ? Gynecologic Cytology Consultation ? Patient Name:SANTHOSH RAMIRESJULISSA Lopez:1990 (Age: 32)Gender:FTaken:11/23/2022Reported:11/24/2022hysician(s):Bethany Raymundo CNP ([phone])Copy To: Rec. #:[id number]: #[id number] Final Cytologic Interpretation ThinPrep Pap Test (Cervical): Satisfactory for evaluation. A transformation zone component is present. NEGATIVE FOR INTRAEPITHELIAL LESION OR MALIGNANCY. ?? jja/11/24/2022 Interpretation performed at [facility], [address] [place] [address], License number: [id number]. Electronically Signed Out By ?ZORA Walter(ASCP) Date of Last Menstrual Period: ? (None Given) Other Clinical Conditions: Z12.4 Screening for malignant neoplasm of cervix Z11.51 Screening for HPV Source of Specimen ??ThinPrep Pap Test (Cervical) ? Thin Prep Pap ([employer]LE[employer]) Fee Code(s): ?? G0145 Authorizing ProviderResult TypeResult StatusAmy Meliza Raymundo APRN-[facility] PATH[facility]/CYTOLOGY ORDERABLESFinal ResultPerforming OrganizationAddress City/State/ZIP CodePhone Number COPATH from Last 3 Months or Most Recently Relevant to Health Maintenance Insurance Care Teams Team MemberRelationshipSpecialtyStart DateEnd Services, [facility] [address] [place], [place] [facility]11/03/24
--- OUTSIDE RECORDS SUMMARY | 2025-06-20 22:10 | XMS_ITS | Clinical Summary ---
Author Organization [facility] Address [address] [place] [address] Phone Care Team Providers Care Personal Lines Underwriter Name Role Phone June Trinidad LPN Unavailable Unavailable Allergies No known active allergies Medications MedicationSigDispense QuantityRefillsLast FilledStart DateEnd DateStatus metFORMIN (Glucophage) 500 mg tablet 1 tablet (500 mg).05/22/2024ctive Social History Tobacco UseTypesPacks/DayYears UsedDateSmoking Tobacco: NeverSmokeless Tobacco: Never Tobacco Cessation:Counseling Given: No Alcohol UseStandard Drinks/WeekCommentsNever0 (1 standard drink = 0.6 oz pure alcohol)PHQ-2AnswerDate RecordedPatient Health Questionnaire-2 Owcng526 CommentsUnknownSex and Gender InformationValueDate RecordedSex Assigned at BirthNot on fileLegal CwmDxdnha69/06/2025 12:03 PM ESTGender IdentityNot on fileSexual OrientationNot on file Last Filed Vital Signs Vital SignReadingTime TakenCommentsBlood Tdqklkxv284/7805 10:52 AM EDT Wcxdb929601/03/2025 10:52 AM VIPPbqzgzbtbrq12.6 ??C (97.8 ??F)01/03/2025 10:52 AM EDTRespiratory Rate--Oxygen Saturation--Inhaled Oxygen Concentration--Buoykx843 kg (268 lb 9.6 oz)01/03/2025 10:52 AM MXEXaucsn193.7 cm (5' 8 )01/03/2025 10:52 AM EDTBody Mass Index40.845 10:52 AM EDT Plan of Treatment Health MaintenanceDue DateLast DoneCommentsHIV Psqohockl1992Lipid Panel 1992MMR Vaccines (1 of 1 - Standard series)1993Hepatitis C Screening 2010Hepatitis B Vaccines (1 of 3 - 19+ 3-dose series)2011HPV/Cotest 2013DTaP/Tdap/Td Vaccines (1 - Tdap)2014HPV Vaccines (1 - 3-dose standard series)2019Influenza Vaccine (#1)2025OVID-19 Vaccine ( - season)2025early Adult Onruywiu71/22/433659/ervical Cancer Fmhhxaxkr05/21/2028Pap Smear12/10/951515/Zoster Vaccines (1 of 2) 2042HIB VaccinesAged OutNo [...] Ramires TypeRelation to PatientDate of BirthPhone Billing AddressPersonal/TmkbjgUzod1990 [address] [address] [place] [address] * Guarantor: Antoinette Ramires TypeRelation to PatientDate of BirthPhone Billing AddressPersonal/YonpanYgay1990 [address] [address] [place] [address] Care Teams Team MemberRelationshipSpecialtyStart DateEnd Date June Trinidad LPN Licensed Practical NurseReproductive Endocrinology and Infertility01/01/25
--- NOTE | 2025-06-20 22:12 | ECG_ITS ---
[facility] Test Date: 2025-06-20 Pat Name: ELLEN MITCHELL Department: Room: - Gender: Female Supervisor Coin Machine: : 1990 Requested By: [id number] Order Number: [id number] Reading MD: RANDOLPH MIXON M.D. Measurements Intervals Hydro Rate: 79 P: 43 WY: 130 QRS: 39 QRSD: 90 T: 8 QT: 398 QTc: 432 Interpretive Statements 1100 Sinus rhythm 4068 Nonspecific Twave abnormality 9130 borderline ECG No previous ECG available for comparison Electronically Signed On 06-21-2025 6:28:32 EDT by RANDOLPH MIXON M.D.
--- NOTE | 2025-06-20 22:22 | ED.ANXIETY1 ---
HPI - Anxiety General Chief Complaint: Arrhythmia/Palpitations Stated Complaint: PALPITATIONS Time Seen by Provider: 06/20/25 22:16 Source: patient Mode of arrival: walk-in History of Present Illness HPI narrative: V5A1Sm2. 25 weeks . Has gestation hypertension and is on medication for HTN. On procardia and dose was increased over the past couple of days. Also history of anxiety and recently her zoloft dose was increased. Past history of palpitations similar to what she is experiencing now. States other times when she came in with this presentation she was found to have a URI or UTI. She has not urinary symptoms or fever. Not short of breath or abdominal pain. baby still kicking Related Data Home Medications ?Medication ?Instructions ?Recorded ?Confirmed cholecalciferol (vitamin D3) 10 800 unit PO DAILY 05/18/24 06/20/25 mcg (400 unit) chewable tablet (Vitamin D3) Held on 06/20/25. Instructions: Order Change nifedipine 60 mg tablet,extended mg PO BID 06/20/25 release 24 hr sertraline 50 mg tablet mg PO Q24H 06/20/25 Allergies Allergy/AdvReac Type Severity Reaction Status Date / Time No Known Drug Allergies Allergy Verified 06/20/25 22:25 Review of Systems ROS Status of ROS 10 or more systems reviewed and unremarkable except as noted in history and below PFSH [facility] Medical History (Updated 06/20/25 @ 23:43 by Vince Chadwick MD) Fallopian tube disorder ?N83.9 - Noninflammatory disorder of ovary, fallopian tube and broad ligament, unspecified (ICD-10) Pelvic pain ?R10.2 - Pelvic and perineal pain (ICD-10) Anxiety ?F41.9 - Anxiety disorder, unspecified (ICD-10) Vitamin D deficiency ?E55.9 - Vitamin D deficiency, unspecified (ICD-10) GERD (gastroesophageal reflux disease) ?K21.9 - Gastro-esophageal reflux disease without esophagitis (ICD-10) PCOS (polycystic ovarian syndrome) ?E28.2 - Polycystic ovarian syndrome (ICD-10) Surgical History (Updated 05/18/24 @ 12:42 by Yazmin Parham RN) H/O wisdom tooth extraction ?K08.409 - Partial loss of teeth, unspecified cause, unspecified class (ICD-10) Family History (Updated 05/18/24 @ 12:43 by Yazmin Parham RN) Other Epilepsy Family history of cancer Family history of diabetes mellitus Family history of hypertension Family history of myocardial infarction Social History (Updated 05/18/24 @ 12:45 by Yazmin Parham RN) Within the past year, how often did you have a drink containing alcohol: never Score interpretation: A score less than 3 is consistent with normal alcohol consumption. 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 Highest level of school completed/degree received: Bachelor's degree Little interest or pleasure in doing things: not at all Feeling down, depressed, or hopeless: not at all Exam Constitutional Vital Signs, click to edit/add: Last Vital Signs Temp 97.8 F 06/20/25 22:09 Pulse 80 06/20/25 23:50 Resp 17 06/20/25 23:50 BP 148/105 H 06/20/25 23:31 Pulse Ox 97 06/20/25 23:50 O2 Del Method Room Air 06/20/25 22:51 Common normals: no apparent distress, average body habitus, oriented x3, no limitations, healthy appearing, alert and well nourished [facility] Common normals: normocephalic and head/scalp atraumatic Eye Common normals: EOMs intact bilaterally and conjunctivae normal Respiratory Common normals: normal respiratory effort, no retractions, no use of accessory muscles and clear to auscultation bilaterally Cardio Common normals: regular rate, regular rhythm, S1 normal heart sound and S2 normal heart sound GI Common normals: Normal to inspection, nondistended, normoactive bowel sounds present, soft to palpation and non-tender Extremity Common normals: normal to inspection and full ROM Neuro Common normals: oriented x3, CN's II-XII intact bilaterally, moves all extremities and no focal motor deficits Psych Appearance: grossly normal Course Vital Signs Vital signs: Vital Signs Temperature 97.8 F 06/20/25 22:09 Pulse Rate 89 06/20/25 22:09 Respiratory Rate 22 H 06/20/25 22:09 Blood Pressure 169/93 H 06/20/25 22:09 Pulse Oximetry 97 06/20/25 22:09 Oxygen Delivery Method Room Air 06/20/25 22:09 Temperature 97.8 F 06/20/25 22:09 Pulse Rate 80 06/20/25 23:50 Respiratory Rate 17 06/20/25 23:50 Blood Pressure 148/105 H 06/20/25 23:31 Pulse Oximetry 97 06/20/25 23:50 Oxygen Delivery Method Room Air 06/20/25 22:51 MDM - Anxiety MDM Narrative Medical decision making narrative: patient has a history of gestation HTN and just a couple of days ago procardia was increased for her BP. she is 25 weeks . Also history of anxiety. past history of similar palpitations and anxiety for which she is on zoloft. Zoloft recently increased from 50mg to 75mg. Exam neg. labs with mild elevated WBC. she is afebrile. Her blood pressure was elevated at 169 systolic on arrival but improved to 148 systolic without intervention. Patient advised of working diagnosis of anxiety. Advised to continue her current medication and to follow up with her doctor for recheck of her BP Lab Data Labs: Lab Results 06/20/25 06/20/25 Range/Units 20:35 23:00 WBC 14.6 H (4.0-11.0) 10^3/uL RBC 3.69 L (4.20-5.40) 10^6/uL Hgb 11.5 L (12.0-16.0) g/dL Hct 34.2 L (36.0-48.0) % MCV 92.7 (81.0-99.0) fL MCH 31.2 (26.7-34.0) pg MCHC 33.6 (29.9-35.2) g/dL RDW 12.9 (11.0-15.0) % Plt Count 263 (150-450) 10^3/uL MPV 10.4 (9.5-13.5) fL Neut % (Auto) 74.5 (43.0-75.0) % Lymph % (Auto) 15.4 L (20.5-60.0) % [place] % (Auto) 6.7 (1.7-12.0) % Eos % (Auto) 1.9 (0.9-7.0) % Baso % (Auto) 0.3 (0.2-2.0) % Neut # (Auto) 10.9 H (1.4-6.5) 10^3/uL Lymph # (Auto) 2.2 (1.2-3.8) 10^3/uL [place] # (Auto) 1.0 H (0.3-0.8) 10^3/uL Eos # (Auto) 0.3 (0.0-0.7) 10^3/uL Baso # (Auto) 0.0 (0.0-0.1) 10^3/uL Abs Immat Gran (auto) 0.18 H (0.00-0.03) 10^3/uL Imm/Tot Granulo (auto) 1.2 H (0.0-0.5) % Sodium 140 (136-145) mmol/L Potassium 3.3 L (3.5-5.1) mmol/L Chloride 105 (98-107) mmol/L Carbon Dioxide 23.3 (21.0-32.0) mmol/L Anion Gap 15.0 BUN 5.0 L (7.0-18.0) mg/dL Creatinine 0.57 (0.55-1.02) mg/dL Est GFR ( Amer) >60 (>=60 mL/min/1.73m^2) Est GFR (Non-Af Amer) >60 (>=60 mL/min/1.73m^2) BUN/Creatinine Ratio 8.8 Glucose 113 H (74-106) mg/dL Calcium 8.7 (8.5-10.1) mg/dL Urine Color Lt. yellow (YELLOW) Urine Clarity Clear (CLEAR) Urine pH 7.0 (5.0-9.0) Ur Specific [place] 1.010 (1.005-1.025) Urine Protein Negative (NEG/TRACE) mg/dL Urine Glucose (UA) Negative (NEGATIVE) mg/dL Urine Ketones Negative (NEGATIVE) mg/dL Urine Occult Blood Negative (NEGATIVE) Urine Nitrite Negative (NEGATIVE) Urine Bilirubin Negative (NEGATIVE) Urine Urobilinogen 0.2 (0.2-1.0) EU/dL Ur Leukocyte Esterase Negative (NEGATIVE) Urine RBC 0-2 (0-2) #/HPF Urine WBC 0-2 A (NONE SEEN) #/HPF Ur Squamous Epith Cells Few A (NONE/RARE) #/LPF Urine Crystals None seen (None Seen) #/HPF Urine Bacteria Trace A (NONE SEEN) #/HPF Urine Casts None seen (NONE SEEN) #/LPF Urine Mucus None seen (NONE SEEN) Ur Culture Indicated? No Discharge Plan Discharge Chief Complaint: Arrhythmia/Palpitations Clinical Impression: Anxiety, Palpitations Patient Disposition: Home, Self-Care Prescriptions / Home Meds: No Action cholecalciferol (vitamin D3) [Vitamin D3] 10 mcg (400 unit) tablet,chewable 800 unit PO DAILY nifedipine 60 mg tablet extended release 24hr PO BID sertraline 50 mg tablet PO Q24H Rx Instructions: 75mg Print Language: Swiss Instructions: Heart Palpitations (ED), Anxiety (ED) Additional Instructions: follow up with your doctor next week for recheck Referrals: Judy Yepez NP [Primary Care Provider] - 1 week
--- NOTE | 2025-06-20 22:47 | PC.NURSE ---
patient having cough for a couple of weeks. shortness of breath and has hx of anxiety
[2025-06-20 22:49] LABS: Hematocrit 34.2 % (36.0-48.0); Hemoglobin 11.5 g/dL (12.0-16.0); Immature Granulocytes Abs Auto 0.18 10^3/uL (0.00-0.03); Immature Granulocytes Pct Auto 1.2 % (0.0-0.5); Lymphocytes Absolute Auto 2.2 10^3/uL (1.2-3.8); Mean Corpuscular HGB Conc 33.6 g/dL (29.9-35.2); Mean Corpuscular Hemoglobin 31.2 pg (26.7-34.0); Mean Corpuscular Volume 92.7 fL (81.0-99.0); Platelet Count 263 10^3/uL (150-450); Red Blood Count 3.69 10^6/uL (4.20-5.40); White Blood Count 14.6 10^3/uL (4.0-11.0)
[2025-06-20 22:56] LABS: Anion Gap 15.0; Blood Urea Nitrogen 5.0 mg/dL (7.0-18.0); Calcium 8.7 mg/dL (8.5-10.1); Carbon Dioxide 23.3 mmol/L (21.0-32.0); Chloride 105 mmol/L (98-107); Estimated GFR (African America >60 (>=60 mL/min/1.73m^2); Estimated GFR (Non-African Ame >60 (>=60 mL/min/1.73m^2); Glucose 113 mg/dL (74-106); Potassium 3.3 mmol/L (3.5-5.1); Sodium 140 mmol/L (136-145)
[2025-06-20 23:20] LABS: Glucose Urine UA NEGATIVE (NEGATIVE)
[2025-06-20 23:30] LABS: Cast Seen? NONE SEEN #/LPF (NONE SEEN); Crystals Seen? None Seen #/HPF (None Seen); Urine Culture Indicated NO
[2025-06-21 00:13] VITALS: BP 147/89; PULSE 79; O2SAT 96
== END 2025-06-21 00:21 | disposition home or self-care (01) ==
PROVIDERS: Emergency Provider Internal Medicine
DX: O99.891 Other specified diseases and conditions complicating pregnancy (principal); R00.2 Palpitations; O99.342 Other mental disorders complicating pregnancy, second trimester; F41.9 Anxiety disorder, unspecified; O13.2 Gestational [pregnancy-induced] hypertension without significant proteinuria, second trimester; Z3A.25 25 weeks gestation of pregnancy
CPT/HCPCS: 36415; 80048; 81001; 85025; 93005; 99285

== ENCOUNTER 2025-07-04 09:19 | Outpatient (OUT) | payer MEDICAID, SELFPAY ==
[2025-07-04 10:39] LABS: Hematocrit 35.0 % (36.0-48.0); Hemoglobin 11.8 g/dL (12.0-16.0); Immature Granulocytes Abs Auto 0.18 10^3/uL (0.00-0.03); Immature Granulocytes Pct Auto 1.0 % (0.0-0.5); Lymphocytes Absolute Auto 1.7 10^3/uL (1.2-3.8); Mean Corpuscular HGB Conc 33.7 g/dL (29.9-35.2); Mean Corpuscular Hemoglobin 31.6 pg (26.7-34.0); Mean Corpuscular Volume 93.6 fL (81.0-99.0); Platelet Count 292 10^3/uL (150-450); Red Blood Count 3.74 10^6/uL (4.20-5.40); White Blood Count 17.3 10^3/uL (4.0-11.0)
[2025-07-04 11:24] LABS: Glucose 1 Hour 159 mg/dL (<130)
== END 2025-07-04 09:20 | disposition home or self-care (01) ==
LOC: LAB 09:21
PROVIDERS: Visit Provider Obstetrics & Gynecology
DX: Z13.1 Encounter for screening for diabetes mellitus (principal)
CPT/HCPCS: 36415; 82950; 85025

== ENCOUNTER 2025-07-06 08:02 | Outpatient (OUT) | payer MEDICAID, SELFPAY ==
--- OUTSIDE RECORDS SUMMARY | 2025-06-24 13:50 | XMS_ITS | Encounter Summary ---
Author Organization [facility] Address [address] [place] [address] Care Team Providers Care Frozen Foods Manager Name Role Phone Judy Caal Unavailable Unavailable Reason for Visit * ReasonCommentsRoutine Visit Encounter Details DateTypeDepartmentCare Team (Latest Contact Info)Adsztsuojax79/03/2025 1:50 PM ESTRoutine [facility] [address] [place] [phone] Caesar Broderick DO [address] [place] [address] Second trimester ([facility]); 25 weeks gestation of ([facility]); H/O pre-eclampsia in prior , currently ([facility]); Vitamin D deficiency; Chronic hypertension affecting ([facility]); Diabetes mellitus screening Social History Tobacco UseTypesPacks/DayYears UsedDateSmoking Tobacco: Never AssessedPHQ-2 AnswerDate RecordedPatient Health Questionnaire-2 Cyait813 Estimated Date of SirktegjOkksvocgJej29/11/2026Based on last menstrual period of 12/26/2024Sex and Gender InformationValueDate RecordedSex Assigned at BirthNot on fileLegal AcxFjalbp36/06/2024 9:48 AM EDTGender IdentityNot on fileSexual OrientationNot on filedocumented as of this encounter Last Filed Vital Signs Vital SignReadingTime TakenCommentsBlood Gowgvuvr639/8611 1:42 PM EST Pulse--Temperature--Respiratory Rate--Oxygen Saturation--Inhaled Oxygen Concentration--Sjpyjt456 kg (285 lb)06/24/2025 1:42 PM ESTHeight--Body Mass Index43.331 2:39 PM EDTdocumented in this encounter Progress Notes * Karoline Casillas, STAMP PRESS OPERATOR - 06/24/2025 1:50 PM EST Reason for Appointment: Patient ID: Chayo Ramires is a 35 y.o. female who presents for Routine Visit Patient presents today for Return OB appointment. MEDICATIONS Current Outpatient Medications Medication Instructions labetalol (NORMODYNE) 100 mg, Oral, Daily NIFEdipine XL (PROCARDIA XL) 60 mg, Oral, Daily, Take 1 tablet in the am. Do not crush, chew, or split. Procardia XL 30 mg, Daily sertraline (ZOLOFT) 50 mg, Every 24 hours ALLERGIES No Known Allergies PROBLEMS Active Ambulatory Problems Diagnosis Date Noted Fallopian tube disorder 07/30/2024 PCOS (polycystic ovarian syndrome) 07/30/2024 induced hypertension, antepartum ([facility]) 04/25/2025 Vitamin D deficiency 05/23/2025 H/O pre-eclampsia in prior , currently ([facility]) 05/23/2025 Resolved Ambulatory Problems Diagnosis Date Noted [...] nursing note reviewed. Exam conducted with a blow down operator present. Vitals: Estimated body mass index is 43.33 kg/m?? as calculated from the following: Height as of 06/11/24: 5' 8 . Weight as of this encounter: 285 lb. BP: 150/86 Patient's last menstrual period was 12/26/2024. Assessment/Plan ICD-10-CM 1. Second trimester ([facility]) Z34.92 POCT urinalysis dipstick manually resulted 2. 25 weeks gestation of ([facility]) Z3A.25 labetalol (Normodyne) 100 MG tablet 3. H/O pre-eclampsia in prior , currently ([facility]) O09.299 labetalol (Normodyne)100 MG tablet 4. Vitamin D deficiency E55.9 5. Chronic hypertension affecting ([facility]) O10.919 labetalol (Normodyne) 100 MG tablet 6. Diabetes mellitus screening Z13.1 CBC Glucose tolerance, 1 hour CBC Glucose tolerance, 1 hour Patient presents today for a routine obstetrics appointment. Patient is currently 25w5d with a Estimated Date of Delivery: 10/02/25. Patient is having elevated BP's and is currently taking Procardia 60mg BID per MFM. Patient is now going to add Labetalol 100mg back into her daily regimen. Patient is also to come off of work for the remainder of , as she is already having issues with HTN. Patient to start NST/BPP at 28 weeks gestation. Orders given for patient to get scheduled at [facility] and [facility] Scheduling. Patient to return to clinic in 2 weeks for routine OB appointment. Patient has had ER visits since last appointment due to headaches and elevated BP. Patient to have no lifting and to rest while off work. Documented by Karoline Casillas LPN on behalf of: Caesar Broderick DO documented in this encounter Plan of Treatment DateTypeDepartmentCare Team (Latest Contact Info)Ezyufxkoyaa17/18/2025 1:20 PM ESTRoutine [facility] [address] [place] [address] [place] [address] Bethany Simon PA [address] [place] [address] 12/16/2025 3:00 PM EDTOffice Visit [facility] [address] [place] [address] [place] [address] Caesar Broderick DO [address] [place] [address] NameTypePriorityAssociated DiagnosesOrder ScheduleCBCLabRoutine Diabetes mellitus screening Expected: 06/24/2025 (Approximate), Expires: 06/24/2026Glucose tolerance, 1 hour LabRoutine Diabetes mellitus screening Expected: 06/24/2025 (Approximate), Expires: 06/24/2026US biophysical profile w non stress testImagingRoutine 25 weeks gestation of ([facility]) H/O pre-eclampsia in prior , currently ([facility]) Chronic hypertension affecting ([facility]) Expected: 06/24/2025 (Approximate), Expires: 12/22/2025US OB follow up transabdominal approachImagingRoutine H/O pre-eclampsia in prior , currently ([facility]) Chronic hypertension affecting ([facility]) Expected: 06/24/2025, Expires: 10/22/2025documented as of this encounter Procedures Procedure NamePriorityDate/TimeAssociated DiagnosisCommentsPOCT URINALYSIS MNJONTMQJgyftld34/03/2025 1:51 PM EST Second trimester ([facility]) documented in this encounter Results * POCT urinalysis dipstick manually resulted (06/24/2025 1:51 PM EST)Component ValueRef RangeTest MethodAnalysis TimePerformed AtPathologist SignatureColor, UAYellowClarity, UAClearGlucose, UANegativeNegative - 2000(110) ++++ mg/dL Bilirubin, UANegativeNegative - 4(70) +++ mg/dLKetones, UANegativeNegative - 160(16) ++++ mg/dLSpec Grav, UA1.0301 - 1.03Blood, UANegativeNegative - 50 Surjit/mcLpH, UA6.05 - 9Protein, UANegativeNegative - 2000(20) ++++ mg/dL Urobilinogen, UA1.00.2 - 12 mg/dLLeukocytes, UANegativeNegative - 500+++ Kaleigh/mcLNitrite, UANegativeNegative - PositiveSpecimen (Source)Anatomical Location / LateralityCollection Method / VolumeCollection TimeReceived Time Urine06/24/2025 1:51 PM EST Narrative Authorizing ProviderResult TypeResult StatusCorey Davie DOPOINT OF CARE TEST ENTER/EDIT ORDERABLESFinal Result documented in this encounter Visit Diagnoses Diagnosis Second trimester ([facility]) state, incidental 25 weeks gestation of ([facility]) H/O pre-eclampsia in prior , currently ([facility]) Vitamin D deficiency Chronic hypertension affecting ([facility]) Diabetes mellitus screening Screening for diabetes mellitus documented in this encounter Care Teams Team MemberRelationshipSpecialtyStart DateEnd Date Judy Caal PCP - [facility] 02/20/24documented as of this encounter
--- OUTSIDE RECORDS SUMMARY | 2025-07-06 08:05 | XMS_ITS | Clinical Summary ---
Author Organization [facility] Address [address] [place] [address] Phone Care Team Providers Care Consumer Services Consultant Name Role Phone June Trinidad LPN Unavailable Unavailable Allergies No known active allergies Medications MedicationSigDispense QuantityRefillsLast FilledStart DateEnd DateStatus metFORMIN (Glucophage) 500 mg tablet 1 tablet (500 mg).05/22/2024ctive Social History Tobacco UseTypesPacks/DayYears UsedDateSmoking Tobacco: NeverSmokeless Tobacco: Never Tobacco Cessation:Counseling Given: No Alcohol UseStandard Drinks/WeekCommentsNever0 (1 standard drink = 0.6 oz pure alcohol)PHQ-2AnswerDate RecordedPatient Health Questionnaire-2 Neypd065 CommentsUnknownSex and Gender InformationValueDate RecordedSex Assigned at BirthNot on fileLegal KgmWstjqc29/06/2025 12:03 PM ESTGender IdentityNot on fileSexual OrientationNot on file Last Filed Vital Signs Vital SignReadingTime TakenCommentsBlood Bxrpgkbb800/7805 10:52 AM EDT Xcmbh809601/03/2025 10:52 AM RIOHxuxshugxwo35.6 ??C (97.8 ??F)01/03/2025 10:52 AM EDTRespiratory Rate--Oxygen Saturation--Inhaled Oxygen Concentration--Bnfhoh396 kg (268 lb 9.6 oz)01/03/2025 10:52 AM TMXQlpohm187.7 cm (5' 8 )01/03/2025 10:52 AM EDTBody Mass Index40.845 10:52 AM EDT Plan of Treatment Health MaintenanceDue DateLast DoneCommentsHIV Tivdbbkqo1992Lipid Panel 1992MMR Vaccines (1 of 1 - Standard series)1993Hepatitis C Screening 2010Hepatitis B Vaccines (1 of 3 - 19+ 3-dose series)2011HPV/Cotest 2013DTaP/Tdap/Td Vaccines (1 - Tdap)2014HPV Vaccines (1 - 3-dose standard series)2019Influenza Vaccine (#1)2025OVID-19 Vaccine ( - season)2025early Adult Opjnrjmt95/22/543779/ervical Cancer Hrsnwtfbe54/21/2028Pap Smear12/10/290864/Zoster Vaccines (1 of 2) 2042HIB VaccinesAged OutNo [...] Ramires TypeRelation to PatientDate of BirthPhone Billing AddressPersonal/BorwlrGojf1990 [address] [address] * Guarantor: Antoinette Ramires TypeRelation to PatientDate of BirthPhone Billing AddressPersonal/RidtfnUlbs1990 [address] [address] Care Teams Team MemberRelationshipSpecialtyStart DateEnd Date June Trinidad LPN Licensed Practical NurseReproductive Endocrinology and Infertility01/01/25
--- OUTSIDE RECORDS SUMMARY | 2025-07-06 08:05 | XMS_ITS | Encounter Summary ---
Author Organization [facility] Address [address] [place] [address] Care Team Providers Care Collector Of Port Name Role Phone Judy Cala Unavailable Unavailable Encounter Details DateTypeDepartmentCare Team (Latest Contact Info)Mykpbsdtbzj56/02/2025Travel Social History Tobacco UseTypesPacks/DayYears UsedDateSmoking Tobacco: Never AssessedPHQ-2 AnswerDate RecordedPatient Health Questionnaire-2 Zcgtl135 Estimated Date of EhuxwuhcIingiygfFdw20/11/2026Based on last menstrual period of 12/26/2024Sex and Gender InformationValueDate RecordedSex Assigned at BirthNot on fileLegal JthUjfmal61/06/2024 9:48 AM EDTGender IdentityNot on fileSexual OrientationNot on filedocumented as of this encounter Plan of Treatment DateTypeDepartmentCare Team (Latest Contact Info)Vhobvrxzezz25/18/2025 1:20 PM ESTRoutine [facility] [address] [place] [address] [place] [address] Bethany Simon PA [address] [place], [facility] 12/16/2025 3:00 PM EDTOffice Visit [facility] [address] [place] [address] Caesar Broderick DO [address] [place] [address] documented as of this encounter Visit Diagnoses Not on filedocumented in this encounter Care Teams Team MemberRelationshipSpecialtyStart DateEnd Date Judy Caal PCP - [facility] [employer]02/20/24documented as of this encounter
--- OUTSIDE RECORDS SUMMARY | 2025-07-06 08:05 | XMS_ITS | CCD ---
Author Organization [facility] Care Team Providers Care Customer Marketing Manager Name Role Phone Pinky Singh Unavailable Judy Caal Unavailable Unavailable Unavailable Primary Care Provider Unavailabl e Services, [facility] Primary Care Provider Caesar Broderick DO Attending Provider Caesar Broderick Attending Unavailable Davie, Caesar Admitting Unavailable White PROFESSIONAL TUTOR, June A Unavailable Unavailable ROBBIE LOPEZ Attending Unavailable Services, [facility] Primary Care Provider SERVICES, [facility] Care Unava ilable MILLIE VILLAGRAN Attending Unavailable SERVICES, [facility] Care Unava ilable FRANCIE ABRAMS Attending Unavailable DAVIE, CAESAR R Referring Unavailable SERVICES, [facility] Care Unava ilable DAVIE, CAESAR R Referring Unavailable SERVICES, [facility] Care Unava ilable YORDY CRUZ Attending Unavailable DAVIE, CAESAR R Referring Unavailable SERVICES, [facility] Care Unava ilable DAVIE, CAESAR R Referring Unavailable SERVICES, [facility] Care Unava ilable YORDY CRUZ Attending Unavailable DAVIE, CAESAR R Referring Unavailable SERVICES, [facility] Care Unava ilable Services, [facility] Primary Care Provider DEWEY BRODERICKY Attending Unavailable DAVIE, CAESAR Attending Unavailable DAVIE, CAESAR Attending Unavailable DAVIE, CAESAR Attending Unavailable DAVIE, CAESAR Attending Unavailable DAVIE, CAESAR Attending Unavailable DAVIE, CAESAR Attending Unavailable UYEN, RODY Attending Unavailable UYEN, RODY Attending Unavailable UYEN, RODY Attending Unavailable DAVIE, CAESAR Attending Unavailable Medications Current Medications MedicationDrug Class(es)DatesSig (Normalized)Sig (Original)amoxicillin 875 mg / clavulanate 125 mg oral tablet (2 sources)Penicillin-class AntibacterialStart: 19-72-7316rbtn 1 tablet by mouth twice dailyAmoxicillin-Pot Clavulanate 875-125 mg tablet Active 1 TAB PO Twice daily November 24, 2023 12:00amaspirin 81 mg delayed release oral tablet (4 sources)Platelet Aggregation Inhibitor, Nonsteroidal Anti-inflammatory Drug take 1 tablet by mouth in the morningaspirin 81 mg Take 1 tablet (81 mg total) by mouth in the morning. Activecholecalciferol 0.01 mg oral tablet (20 sources)Vitamin DStart: 94-97-8220qwotvljfyisbebt 10 mcg (400 unit) tablet 2 tablets (800 Units total) in the morning. 01/26/2024 ActiveStart: 01-26-2024 End: 84-87-1776Lharursnjlguojk 10 MCG (400 UNIT) chewable tablet 1 (one) time each day at the same time Discontinued (Therapy completed) End: 91-39-4792qiez 2 tablets by mouth once dailyD-400 10 MCG (400 UNIT) tablet TAKE 2 TABLETS BY MOUTH ONCE DAILY FOR 30 DAYS 03/28/2025 Discontinuedclobetasol propionate 0.0005 mg/mg topical ointment (3 sources)CorticosteroidStart: 05-17-2025 End: 78-23-6650yjhmzvwmjF (TEMOVATE) 0.05 % ointment Indications: Acute palmoplantar pustular psoriasis , Chronic hypertension affecting , 20 weeks gestation of Apply a thin layer to the affected areas twice daily. 30 g 05/17/2025 05/31/2025 ActiveclomiPHENE citrate 50 mg oral tablet (3 sources)Estrogen Agonist/AntagonistStart: 11-12-2024 End: 40-20-6470enab 2 tablets by mouth once dailyclomiPHENE (Clomid) 50 MG tablet Indications: Encounter for fertility planning , PCOS (polycystic ovarian syndrome) , Fallopian tube disorder Take 2 tablets (100 mg) by mouth Daily for 5 days 10 tablet 11/12/2024 11/17/2024 Activefluticasone propionate 0.05 mg/actuat metered dose nasal spray (4 sources)CorticosteroidStart: 11-24-2023 End: 87-14-1667bdmlmkbzkwy (Flonase) 50 MCG/ACT nasal spray Daily 11/24/2023 04/10/2024 Discontinued (Other)Start: 43-20-4563iczy 1 spray(s) nasal route once dailyFluticasone Propionate 50 mcg/actuation spray,suspension Active 2 SPRAY INTRANASAL Daily November 24, 2023 12:00am administer into each nostril labetalol hydrochloride 100 mg oral tablet (14 sources)beta-Adrenergic BlockerStart: 06-24-2025 End: 40-74-8026srti 1 tablet by mouth once dailylabetalol (Normodyne) 100 MG tablet Indications: Hypertension Take 1 tablet (100 mg) by mouth Daily30 tablet 3 06/24/2025 07/24/2025 ActiveStart: 05-16-2025 End: 87-96-4653metz 1 tablet by mouth once at bedtimelabetalol (Normodyne) 200 MG tablet Indications: Second trimester (HHS-HCC) , Gestational hypertension, antepartum (HHS-HCC) TAKE 1 TABLET (200 MG) BY MOUTH IN THE MORNING AND AT BEDTIME 60tablet 2 05/16/2025 05/23/2025 Discontinued (Ineffective)Start: 04-11-2025 End: 06-09-0944gqln 1 tablet by mouth once in the morninglabetalol (Normodyne) 200 MG tablet Indications: Second trimester (HHS-HCC) , Gestational hypertension, antepartum (HHS-HCC) Take 1 tablet (200 mg) by mouth in the morning and 1 tablet (200mg) before bedtime. 60 tablet 04/11/2025 05/11/2025 Active End: 94-51-4746niey 1 tablet by mouth in the morning, then take 1 tablet by mouth at bedtimelabetaloL (NORMODYNE) 200 mg tablet Take 1 tablet (200 mg total) by mouth in the morning and 1 tablet (200 mg total) before bedtime. 05/17/2025 Discontinuedmagnesium oxide 400 mg oral tablet (15 sources)Start: 03-28-2025 End: 75-22-4885xczs 1 tablet by mouth once dailymagnesium oxide (Mag-Ox) 400 MG tablet Indications: Second trimester (HHS-HCC) , Acute nonintractable headache, unspecified headache type Take 1 tablet (400 mg) by mouth Daily 30 tablet 6 03/28/2025 04/27/2025 ActivemetFORMIN hydrochloride 500 mg oral tablet (20 sources)BiguanideStart: 64-80-5531dkmEIMDJR (Glucophage) 500 mg tablet 1 tablet (500 mg). 05/22/2024 ActiveStart: 04-10-2024 End: 83-70-6394sqey 1 tablet by mouth every twenty-four hours at mealtime metFORMIN XR (Glucophage-XR) 500 MG 24 hr tablet Indications: PCOS (polycystic ovarian syndrome) , Abnormal uterine bleeding (AUB) Take 1 tablet (500 mg) by mouth in the evening. Take with meals Do not crush, chew, or split. 30 tablet 11 04/10/2024 03/01/2025 Discontinued (Therapy completed) End: 62-80-1542ange 1 tablet by mouth once daily at breakfastmetFORMIN XR (GLUCOPHAGE XR) 500 mg 24 hr tablet Take 1 tablet (500 mg total) by mouth daily with breakfast. 05/17/2025 DiscontinuedNIFEdipine 30 mg osmotic 24 hr extended release oral tablet (20 sources)Dihydropyridine Calcium Channel BlockerStart: 59-70-8773sgto 2 tablets by mouth every twenty-four hours at bedtimeNIFEdipine XL (PROCARDIA XL) 30 mg 24 hr tablet Indications: Chronic hypertension affecting , 20 weeks gestation of Take 2 tablets (60 mg total) by mouth in the morning and at bedtime. 60 tablet 2 06/18/2025 ActiveStart: 05-30-2025 End: 53-81-5014ddce 1 tablet by mouth once daily in the morningNIFEdipine XL (Procardia XL) 60 MG 24 hr tablet Indications: Chronic hypertension affecting ([facility]) Take 1 tablet (60 mg) by mouth Daily Take 1 tablet in the am. Do not crush, chew, or split. 30 tablet 3 05/30/2025 05/30/2026 ActiveStart: 99-17-3209nxyo 1 tablet by mouth once dailyProcardia XL 30 MG 24 hr tablet Take 30 mg by mouth Daily 05/17/2025 ActiveStart: 05-17-2025 End: 28-23-5395hnmx 1 tablet by mouth every twenty-four hours at bedtime NIFEdipine XL (PROCARDIA XL) 30 mg 24 hr tablet Indications: Chronic hypertension affecting , 20 weeks gestation of Take 1 tablet (30 mg total) by mouth in the morning and at bedtime. 60 tablet 2 05/17/2025 06/18/2025 DiscontinuedpredniSONE 20 mg oral tablet (2 sources)Start: 51-12-7214jhyp 1 tablet by mouth twice dailyPrednisone 20 mg tablet Active 20 MG PO Twice daily 10 November 24, 2023 12:00amprenatal 115/iron/folic acid ( 19 ORAL) (4 sources)take 1 tablet by mouth in the morningprenatal 115/iron/folic acid ( 19 ORAL) Take 1 tablet by mouth in the morning. Activesertraline 25 mg oral tablet (20 sources)Serotonin Reuptake InhibitorStart: 79-51-2798bzbm 1 tablet by mouth in the morningsertraline (ZOLOFT) 25 mg tablet Indications: Anxiety disorder affecting , antepartum Take1 tablet (25 mg total) by mouth in the morning. 30 tablet 1 06/18/2025 ActiveStart: 18-03-9680fryt 1 tablet by mouth in the morningsertraline (ZOLOFT) 50 mg tablet Indications: Anxiety disorder affecting , antepartum Take1 tablet (50 mg total) by mouth in the morning. 30 tablet 1 06/18/2025 ActiveStart: 11-06-2024 End: 41-29-6773ecys 2 tablets by mouth once dailysertraline (Zoloft) 25 MG tablet Take 50 mg by mouth 1 (one) time each day at the same time 11/06/2024 ActiveStart: 11-06-2024 End: 00-64-1147qrcn 3 tablets by mouth at bedtimesertraline (ZOLOFT) 25 mg tablet Take 3 tablets (75 mg total) by mouth before bedtime. 11/06/2024 DiscontinuedStart: 11-06-2024 End: 33-20-4444xfwfrkxeca (Zoloft) 25 MG tablet 1 (one) time each day at the same time 11/06/2024 ActiveStart: 08-04-2023 End: 13-72-6147leem 1 tablet by mouth once dailysertraline (Zoloft) 50 MG tablet Take 50 mg by mouth Daily 08/04/2023 04/10/2024 Discontinued (Other)sertraline (ZOLOFT) 25 mg tablet Take by mouth daily. Active Completed/Discontinued Medications MedicationDrug Class(es)DatesSig (Normalized)Sig (Original)omeprazole 20 mg delayed release oral capsule (20 sources)Proton Pump InhibitorStart: 01-24-2024 End: 23-19-4781diuk 1 capsule by mouth in the morningomeprazole (PriLOSEC) [address] capsule Take 20 mg by mouth in the morning. 01/24/2024 03/28/2025 Dis continued Problems Active Problems Problem ClassificationProblemDateDocumented DateEpisodic/ChronicAbdominal pain (3 sources)Pain in female pelvis; Translations: [Pelvic and perineal pain] 78-49-0461HdxupbfmUrikyuf disorders (1 source)Anxiety disorder, unspecified; Translations: [Anxiety disorder, unspecified]Onset: 25-61-8874SogvmeiColtyjllsgrre and procreative management (10 sources)Patient encounter status; Translations: [Encounter for other procreative management]62-62-3690DkdpzgjdHvupocll; including migraine (4 sources)Acute headache; Translations: [Acute nonintractable headache, unspecified headache type]18-56-0637FklrtmeiQubuqujnlrra complicating ; childbirth and the puerperium (18 sources)Hypertension complicating ; Translations: [Unspecified maternal hypertension, second trimester]Onset: hronic Hypertension complicating ; childbirth and the puerperium (20 sources)Hypertension AND/OR vomiting complicating childbirth AND/OR puerperium; Translations: [Gestational [-induced] hypertension without significant proteinuria, unspecified trimester]Onset: 04-25-2025 51-29-1294HewimrdqQttutxgxvalww and screening for infectious disease (6 sources)Contact with and (suspected) exposure to other viral communicable diseases; Translations: [Contact with or exposure to other viral diseases] EpisodicMenstrual disorders (2 sources)Amenorrhea; Translations: [Amenorrhea, unspecified]23-35-4344Uqjogyo Nutritional deficiencies (20 sources)Vitamin D deficiency; Translations: [Vitamin D deficiency, unspecified]Onset: 143406-11-8292AhghcweOrkx wounds of extremities (2 sources)Laceration without foreign body of right thumb without damage to nail, initial encounter; Translations: [Laceration of finger]Onset: 04-29-2025 EpisodicOther aftercare (2 sources)Postoperative visit; Translations: [Encounter for other specified surgical aftercare]48-98-6707KzqridaeYyxii and unspecified benign neoplasm (1 source)Pigmented skin lesion ; Translations: [Melanocytic nevi, unspecified] 85-61-6550UgnscsxoJawud circulatory disease (1 source)H/O: hypertension; Translations: [Personal history of other diseases of the circulatory system]76-49-8767LtsxitulDbttj complications of (5 sources)Maternal obesity complicating , childbirth and the puerperium, antepartum; Translations: [Obesity complicating , unspecified trimester]20-49-4200LxgecpkHpjlf complications of (2 sources)Obesity complicating , unspecified trimester; Translations: [Obesity complicating , unspecified trimester]Onset: 97-02-2438Dztzreg Other complications of (17 sources)History of pre-eclampsia; Translations: [Supervision of with other poor reproductive or obstetric history, unspecified trimester]Onset: 683832-12-4979NshariklCudqw complications of (2 sources)Other mental disorders complicating , unspecified trimester; Translations: [Mental disorders of mother, antepartum condition or complication] Onset: 295228-63-8741KrtkoxydVbcvu endocrine disorders (20 sources)Polycystic ovary syndrome; Translations: [Polycystic ovarian syndrome]Onset: 618778-09-3190JehmontWkdfz female genital disorders (4 sources)Abnormal uterine bleeding; Translations: [Abnormal uterine and vaginal bleeding, unspecified]48-78-0543AofschpTruuj female genital disorders (2 sources)Abnormal uterine and vaginal bleeding, unspecified; Translations: [Abnormal uterine and vaginal bleeding, unspecified]Onset: 57-06-0782Pjspuyv Other inflammatory condition of skin (5 sources)Pustular psoriasis of palms and soles; 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]33-91-1350KcsnehzSftao inflammatory condition of skin (2 sources)Pustulosis palmaris et plantaris; 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]Onset: 55-80-0162UxsryfgUhukf nutritional; endocrine; and metabolic disorders (2 sources)Morbid (severe) obesity due to excess calories; Translations: [Morbid (severe) obesity due to excess calories]Onset: 01-88-6479SafhdedGhfda and delivery including normal (16 sources); Translations: [Encounter for supervision of normal , unspecified, unspecified trimester]72-34-0059JjemtxahUeifi screening for suspected conditions (not mental disorders or infectious disease) (2 sources)Alpha-fetoprotein blood test status; Translations: [Encounter for screening for raised alphafetoprotein level]50-46-0978FfyytiziSxnly upper respiratory infections (1 source)Chronic sinusitis, unspecified; Translations: [Unspecified sinusitis (chronic)]35-47-6516LiuygbjXurol upper respiratory infections (3 sources)Sore throat symptom; Translations: [Acute pharyngitis, unspecified] 17-48-7251HjlhnxxeRyfvoifc codes; unclassified (2 sources)History of laparoscopy; Translations: [Other specified postprocedural states]78-66-2301JseaieraZbwrngol codes; unclassified (1 source)Gestation period, 9 weeks; Translations: [9 weeks gestation of ]19-23-3113PybiyetwAdidgrkr codes; unclassified (2 sources)Gestation period, 13 weeks; Translations: [13 weeks gestation of ]93-49-5102HklbpkrmPvcbimky codes; unclassified (2 sources)Gestation period, 15 weeks; Translations: [15 weeks gestation of ]28-96-8677WoubbnohOtbaozpv codes; unclassified (2 sources)Gestation period, 17 weeks; Translations: [17 weeks gestation of ]40-98-2782FobmevjaPnzrdtik codes; unclassified (2 sources)Gestation period, 20 weeks; Translations: [20 weeks gestation of ]56-77-6504MsqzdkyzVrlbafvk codes; unclassified (2 sources)Gestation period, 22 weeks; Translations: [22 weeks gestation of ]53-94-0973NhpptzbzPwncrgus codes; unclassified (2 sources)Gestation period, 21 weeks; Translations: [21 weeks gestation of ]65-25-0991FsgxsnuvJysquqrc codes; unclassified (2 sources)Gestation period, 23 weeks; Translations: [23 weeks gestation of ]78-43-4463JpnaewuuLkwsrfft codes; unclassified (1 source)20 weeks gestation of ; Translations: [20 weeks gestation of ]Onset: 77-35-5578AcxsahmfWhxhmoqm codes; unclassified (2 sources)Gestation period, 25 weeks; Translations: [25 weeks gestation of ]69-55-4789EdrwkubiSnpbnzsaigsb (1 source)gHTNOnset: 05-17-2025 Past or Other Problems Problem ClassificationProblemDateDocumented DateEpisodic/ChronicCardiac dysrhythmias (8 sources)Palpitations; Translations: [Palpitations]Onset: 870384-25-5598 EpisodicNonspecific chest pain (3 sources)Chest pain, unspecified; Translations: [Chest pain]Onset: 11-03-2024 EpisodicOther female genital disorders (20 sources)Fallopian tube disorder; Translations: [Noninflammatory disorder of ovary, fallopian tube and broadligament, unspecified]Onset: 921128-48-2793 EpisodicUnclassified (2 sources)Patient encounter -61-3125Enlegfdfljgh (1 source)Onset: 755414-79-0288Fraoqpeopiac (1 source)Anxiety disorder affecting , gbdbxkbymk62-57-0774Amqvqlo tract infections (3 sources)Acute cystitis; Translations: [Acute cystitis without hematuria] Onset: 452220-48-3693RrcjqvrtWzowc infection (1 source)COVID-19 Results Test NameValueInterpretationReference RangeFacilityUrinalysis macro (dipstick) panel (U)on 23-58-2614Kazghsduk, UANegativeNegative - 4(70) +++ mg/dLNOMS HealthcareBlood, UANegativeNegative - 50 Surjit/mcLNOMS HealthcareClarity, UAClear NOMS HealthcareColor, UAYellowNOMS HealthcareGlucose, UANegativeNegative - 1999(110) ++++ mg/dLNOMS HealthcareInterpretation and review of laboratory resultsNormalNOMS HealthcareKetones, UANegativeNegative - 160(16) ++++ mg/dLNOMS HealthcareLeukocytes, UANegativeNegative - 500+++ Kaleigh/mcLNOMS HealthcareNitrite, UANegativeNegative - PositiveNOMS HealthcarepH, UA6.05 - 9N[facility]S Healthcare Protein, UANegativeNegative - 1999(20) ++++ mg/dLNOMS HealthcareSpec Grav, UA 1.0301 - 1.03NOMS HealthcareUrobilinogen, UA1.00.2 - 12 mg/dLNOMS HealthcareNOMS HealthcareUrinalysis macro (dipstick) panel (U)on 36-34-8324Ojpvprzmm, UA NegativeNegative - 4(70) +++ mg/dLNOMS HealthcareBlood, UANegativeNegative - 50 Surjit/mcLNOMS HealthcareClarity, UAClearNOMS HealthcareColor, UAYellowNOMS HealthcareGlucose, UANegativeNegative - 1999(110) ++++ mg/dLNOMS Healthcare Interpretation and review of laboratory resultsAbnormalNOMS HealthcareKetones, UANegativeNegative - 160(16) ++++ mg/dLNOMS HealthcareLeukocytes, UANegative Negative - 500+++ [place]/mcLNOMS HealthcareNitrite, UANegativeNegative - Positive NOMS HealthcarepH, UA6.05 - 9NOMS HealthcareProtein, UANegativeNegative - 1999(20) ++++ mg/dLNOMS HealthcareSpec Grav, UA1.0251 - 1.03N[facility] Healthcare Urobilinogen, UA0.20.2 - 12 mg/dLNOMS HealthcareNOMS HealthcareUrinalysis macro (dipstick) panel (U)on 60-47-2349Hcvpmdgwo, UANegativeNegative - 4(70) +++ mg/dL NOMS HealthcareBlood, UANegativeNegative - 50 Surjit/mcLNOMS HealthcareClarity, UA ClearNOMS HealthcareColor, UAYellowNOMS HealthcareGlucose, UANegativeNegative - 1999(110) ++++ mg/dLNOMS HealthcareInterpretation and review of laboratory resultsNormalNOMS HealthcareKetones, UANegativeNegative - 160(16) ++++ mg/dLNOCT HealthcareLeukocytes, UANegativeNegative - 500+++ [place]/mcLNOMS HealthcareNitrite, UANegativeNegative - PositiveNOMS HealthcarepH, UA65 - 9NOMS HealthcareProtein, UANegativeNegative - 2000(20) ++++ mg/dLNOMS HealthcareSpec Grav, UA1.0251 - 1.03NOMS HealthcareUrobilinogen, UA0.20.2 - 12 mg/dLNOMS HealthcareNOMS HealthcareAFP, SERUM, OPEN SPINA BIFIDAon 90-88-5389ENG MOM0.85.[facility] AFP VALUE38.2 ng/mL.[facility] HospitalCOMMENT:Comment.[facility] HospitalComment on above:Gema Ortez, Ph.D., [facility] Director References: Available Upon Request. Multiples Of Median Cutoffs For AFP Elevations Kumar 2.5 Black 2.8 IDD 2.0 Twins 4.5 Abbreviation Definitions IDD - Insulin Dep Diabetes OSBR - Open Spina Bifida Risk For further inquiries contact [facility] at [phone]. This test was developed and its performance characteristics determined by [facility]. It has not been cleared or approved by the Food and Drug Administration. Performed at: [facility] [address], [place] [id number] Cut In Station Operator: Jesus Saleh [facility], Phone: [phone] GEST. AGE ON COLLECTION DATE21.1. weeksNOCT HealthcareGESTAT. AGE BASED ONLMP. [facility] HospitalComment on above:Recalculations are not recommended when gestational dating by LMP and ultrasound are within 10 days. INSULIN DEP DIABETESNo.[facility] HealthcareINTERPRETATIONComment.[facility] Comment on above:Interpretation: Screen Negative This [...] Customer Services to discuss available options. The [employer] recommends amniocentesis be offered to women age 35 and older. MATERNAL AGE AT EDD33.5. yrNOCT HealthcareMULTIPLE GESTATIONNo.[facility] Healthcare OSBR RISK 1 [id number].NOMS HealthcareRACECaucasian.[facility] HealthcareRESULTSReport. [facility] HealthcareTEST RESULTS:Negative.[facility] AwbxukzllmOHBZUO874. lbsNOMS HealthcareN N LMP [id number] 2 9 N 1 [address] N White/ CLINISYNCNOCT HealthcareUnlisted Lab Teston 93-54-8079Lybqy Free Cell Dnalow riskProSumma Health [facility] Campus SystemProSt. Mary'[facility]on CampusB-TYPE NATRIURETIC PEPTIDEon 55-33-1719Xrtqbsqotji peptide B (Bld) [Mass/Vol]46 pg/mLNormal<=100ProSelect Medical Specialty Hospital - YoungstownComment on above:Performed By: #### BNP #### [facility] (TT) [address] [place] [address] VIRUrinalysis macro (dipstick) panel (U)on 88-78-3576Tiabnpzru, UANegativeNegative - 4(70) +++ mg/dLNOCT HealthcareBlood, UANegativeNegative - 50 Surjit/mcLNOCT HealthcareClarity, UAClearNOCT HealthcareColor, UAYellowNOCT HealthcareGlucose, UANegativeNegative - 2000(110) ++++ mg/dLSaint John's Hospital Interpretation and review of laboratory resultsNormalNOCT HealthcareKetones, UA NegativeNegative - 160(16) ++++ mg/dLBRIGHAM CITY COMMUNITY HOSPITAL HealthcareLeukocytes, UANegative Negative - 500+++ [place]/mcLNOCT HealthcareNitrite, UANegativeNegative - Positive [facility] HealthcarepH, UA65 - 9NOCT HealthcareProtein, UANegativeNegative - 2000(20) ++++ mg/dLNOCT HealthcareSpec Grav, UA1.0151 - 1.03NOCT HealthcareUrobilinogen, UA1.00.2 - 12 mg/dLNOSaint Mary's Hospital of [facility] Springs HealthcareTBH TOTAL PROTEIN 24 HOUR URINEon 68-98-7501MYXXL PROTEIN URINE RANDOM<6.0NINF - 11.9 mg/dLSaint John's Hospital TOTAL VOLUME 24 HOUR [id number]/24hrNOCT HealthcareCLINISYNCNOMS HealthcareALL CBC WITH AUTO DIFFon 76-92-1363YFNBENMKY ABSOLUTE FQCT0AZII Healthcare Basophils/100 WBC (Bld)0.2 %0.2 - 2.0 %NOMExcelsior Springs Medical CenterEosinophils/100 WBC (Bld) 2.9 %0.9 - 7.0 %[facility] HospitalErythrocyte distribution width (RBC) [Ratio]12.3 %11.0 - 15.0 %[facility] HospitalIMMATURE GRANULOCYTES ABS AUTO0.09HighNOSt. Joseph Medical CenterImmature granulocytes/100 WBC (Bld)0.7 %High0.0 - 0.5 %[facility] Interpretation and review of laboratory resultsAbnormalSaint John's Hospital LYMPHOCYTES ABSOLUTE FKMK4ZMNBSt. Joseph Medical CenterLymphocytes/100 WBC (Bld)15.4 %Low20.5 - 60.0 %[facility] CenterH (RBC) [Entitic mass]31.3 pg26.7 - 34.0 pgNorthwest Medical CenterHC (RBC) [Mass/Vol]33.6 g/dL29.9 - 35.2 g/dLNorthwest Medical CenterV (RBC) [Entitic vol]93.2 fL81.0 - 99.0 fLSaint John's HospitalMONOCYTES ABSOLUTE AUTO0.5NOSt. Joseph Medical CenterMonocytes/100 WBC (Bld)4.1 %1.7 - 12.0 %[facility] HospitalNEUTROPHILS ABSOLUTE AUTO9.9HighNOSt. Joseph Medical CenterNeutrophils/100 WBC (Bld)76.7 %High43.0 - 75.0 %[facility] HospitalPlatelet mean volume (Bld) [Entitic vol]10.2 fL9.5 - 13.5 fLSaint John's HospitalTBH EO #0.4NOSt. Joseph Medical CenterTBH KZA347AJSECenterPointe Hospital RBC3.8 LowNOSt. Joseph Medical CenterTB LDG35IhlsBFYESaint John's HospitalCLINISYNCAPTTon 26-86-0149gHVX Coag (Bld) [Time]26.5 [facility] without diffon 04-17-2025 Platelets (Bld) [#/Vol]251 10*3/uLFort Hamilton Hospital Mcv (Fl) By Automated Count93.2[facility] SystemLaboratory - Hematology and Cell countson 40-89-7209Pbjpwmyhqx (Bld) [Volume fraction]35.4 %[facility] Hemoglobin (Bld) [Mass/Vol]11.9 g/dLNOCT HealthcareNo Panel Informationon 71-57-5199APLC HealthcareUrinalysis macro (dipstick) panel (U)on 04-11-2025 Bilirubin, UANegativeNegative - 4(70) +++ mg/dLNOMS HealthcareBlood, UANegative Negative - 50 Surjit/mcLNOMS HealthcareClarity, UAClearNOMS HealthcareColor, UA YellowNOMS HealthcareGlucose, UANegativeNegative - 2000(110) ++++ mg/dLNOCT HealthcareInterpretation and review of laboratory resultsNormalBRIGHAM CITY COMM[facility]ITY [facility]ITAL Healthcare Ketones, UANegativeNegative - 160(16) ++++ mg/dLNOMS HealthcareLeukocytes, UA NegativeNegative - 500+++ [place]/mcLNOCT HealthcareNitrite, UANegativeNegative - PositiveNOMS HealthcarepH, UA65 - 9NOMS HealthcareProtein, UANegativeNegative - 2000(20) ++++ mg/dLNOCT HealthcareSpec Grav, UA1.0151 - 1.03[facility] Urobilinogen, UA1.00.2 - 12 mg/dLNOCT HealthcareNOCT HealthcareUrinalysis macro (dipstick) panel (U)on 22-71-4336Uezqbhcii, UANegativeNegative - 4(70) +++ mg/dL [facility] HealthcareBlood, UANegativeNegative - 50 Surjit/mcLNOMS HealthcareClarity, UA ClearNOMS HealthcareColor, UAYellowNOMS HealthcareGlucose, UANegativeNegative - 2000(110) ++++ mg/dLNOCT HealthcareInterpretation and review of laboratory resultsAbnormalNOMS HealthcareKetones, UANegativeNegative - 160(16) ++++ mg/dL [facility] HealthcareLeukocytes, UAPositiveNegative - 500+++ Kaleigh/mcLNOMS Healthcare Comment on above:2+Nitrite, UANegativeNegative - PositiveNOMS HealthcarepH, UA65 - 9NOMS HealthcareProtein, UANegativeNegative - 2000(20) ++++ mg/dLNOMS HealthcareSpec Grav, UA1.021 - 1.03NOCT HealthcareUrobilinogen, UA1.00.2 - 12 mg/dLMineral Area Regional Medical Center HealthcareALL CBC WITH AUTO DIFFon 01-06-4653EOCTUQYSX ABSOLUTE AUTO0.1NOMS HealthcareBasophils/100 WBC (Bld)0.5 %0.2 - 2.0 %NOMExcelsior Springs Medical CenterEosinophils/100 WBC (Bld)4 %0.9 - 7.0 %[facility] HospitalErythrocyte distribution width (RBC) [Ratio]12.2 %11.0 - 15.0 %[facility] HospitalIMMATURE GRANULOCYTES ABS AUTO0.08HighSaint John's HospitalImmature granulocytes/100 WBC (Bld) 0.6 %High0.0 - 0.5 %[facility] HospitalInterpretation and review of laboratory resultsAbnormalSaint John's HospitalLYMPHOCYTES ABSOLUTE AUTO2.6NOSt. [facility] Medical [facility] Lymphocytes/100 WBC (Bld)18.4 %Low20.5 - 60.0 %[facility] CenterH (RBC) [Entitic mass]31.5 pg26.7 - 34.0 pgNorthwest Medical CenterHC (RBC) [Mass/Vol]34.1 g/dL29.9 - 35.2 g/dLNorthwest Medical CenterV (RBC) [Entitic vol]92.4 fL81.0 - 99.0 fLSaint John's HospitalMONOCYTES ABSOLUTE AUTO0.6Saint [facility] HospitalMonocytes/100 WBC (Bld)4.3 % 1.7 - 12.0 %[facility] HospitalNEUTROPHILS ABSOLUTE AUTO10.1HighSaint John's Hospital Neutrophils/100 WBC (Bld)72.2 %43.0 - 75.0 %[facility] HospitalPlatelet mean volume (Bld) [Entitic vol]10.2 fL9.5 - 13.5 fLSaint John's HospitalTB EO #0.6[facility] TBH XXB926ITJCCenterPointe Hospital RBC3.94LowThe [facility] Institute of St[facility] WBC13.9HighSaint John's HospitalCLINISYNCCBC without diffon 89-61-0233Fcvwymdsi (Bld) [#/Vol]261 10*3/uLUniversity Hospitals Cleveland Medical CenterRb Mcv (Fl) By Automated Count92.4[facility] CenterDrug Screen, Urineon 01-89-1450Jdbpyvxcgpu/MethamphetamineNegative [facility] CenterBarbituratesNegativeUniversity [facility]als [facility] BenzodiazepinesNegativeUniversity Hospitals Cleveland Medical CenterCocaine MetaboliteNegative [facility] CenterMethadoneNegativeUniversity Hospitals Cleveland Medical CenterOpiatesNegative [facility] CenterOxycodoneNegativeUniversity Hospitals Cleveland Medical CenterPhencyclidine NegativeUniversity Hospitals Cleveland Medical CenterThc Marijuana, UrineNegativeUniversity Hospitals Cleveland Medical CenterHBV surface Ag IA Qlon 49-12-1209Tpvucffqj B Surface AntigenNegative [facility] CenterHCV Ab IA Qlon 22-81-6972ABU Ab Ql (S)Non-Reactive [facility] CenterHIV 1+2 Ab+HIV1 p24 Ag IA Qlon 32-57-3501PIB 1&2 AB/AG Non-ReactiveUniversity Hospitals Cleveland Medical CenterHemoglobin A1con 27-77-1834XqX9e (Bld) [Mass fraction]5.1 %4.0 - 6.0 %[facility] CenterLaboratory - Hematology and Cell countson 12-57-1603Jnjbxvomrr (Bld) [Volume fraction]36.4 %[facility] Hemoglobin (Bld) [Mass/Vol]12.4 g/dLSaint John's HospitalNo Panel Informationon 95-69-1950DTQZ HealthcareRubella IGG immune statuson 67-62-7595Boajlbx immune IgGIMMUNEUniversity Hospitals Cleveland Medical CenterT. pallidum IgG+IgM IA Ql (S)Ordered By: Christina Bertrand on 67-45-6048UmewvnpoTiv-ReactiveUniversity Hospitals Cleveland Medical CenterType and screenon 25-64-9563Uvb/Rh(D)PositiveUniversity Hospitals Cleveland Medical CenterHCG ( test) Ql (U)on 34-11-0068Qybvuvqribjmei and review of laboratory resultsAbnormMeadville Medical Center Preg Test, UrPositiveNegativeNOSt. Joseph Medical CenterNOCT HealthcareUS OB TRANSVAGINALon 57-95-9484JV OB TRANSVAGINALFINDINGS: A single intrauterine gestational sac [...] TRANSCRIBED BY: ELECTRONICALLY SIGNED BY: Mariusz Altamirano MDNormalNot AvailableComment on above:Order Comment: US OB TRANSVAGINAL No LMP recorded.Urinalysis macro (dipstick) panel (U)on 70-44-5258Fcfyeknzz, UA NegativeNegative - 4(70) +++ mg/dLNOMS HealthcareBlood, UANegativeNegative - 50 Surjit/[facility] CenterNOCT HealthcareClarity, UAClearNOMS HealthcareColor, UAYellowNOMS HealthcareGlucose, UANegativeNegative - 2000(110) ++++ mg/dLNO[facility] Healthcare Interpretation and review of laboratory resultsNormalNOMS HealthcareKetones, UA NegativeNegative - 160(16) ++++ mg/dLNOCT HealthcareLeukocytes, UANegative Negative - 500+++ Kaleigh/mcLNOCT HealthcareNitrite, UANegativeNegative - Positive N[facility] HealthcarepH, UA75 - 9NOMS HealthcareProtein, UANegativeNegative - 2000(20) ++++ mg/dLNOCT HealthcareSpec Grav, UA1.0051 - 1.03NOMS HealthcareUrobilinogen, UA0.20.2 - 12 mg/dLNOMS HealthcareNOMS HealthcareALL PROGESTERONEon 01-18-2025 PROGESTERONE8.7 ng/mL.[facility] HealthcareComment on above:Follicular phase 0.1 - 0.9 Luteal phase 1.8 - 23.9 Ovulation phase 0.1 - 12.0 First trimester 11.0 - 44.3 Second trimester 25.4 - 83.3 Third trimester 58.7 - 214.0 Postmenopausal 0.0 - 0.1 Performed at: [address] [id number] Cut In Station Operator: Yobany Blount PhD, Phone: [phone] [facility] ChildrenPATHOLOGY REQUEST FOR LAB CORPon 80-30-4259ZIKPMFMHD REQUEST FOR LAB CORPNOMS HealthcareComment on above:See report. Scanned copy available in EMR.SKIN SPECIMENFIREncompass Health Rehabilitation Hospital of YorkALL PROGESTERONEon 53-64-5672ZOBZHYXVONUH51.9 ng/mL.NOMS HealthcareComment on above:Follicular phase 0.1 - 0.9 Luteal phase 1.8 - 23.9 Ovulation phase 0.1 - 12.0 First trimester 11.0 - 44.3 Second trimester 25.4 - 83.3 Third trimester 58.7 - 214.0 Postmenopausal 0.0 - 0.1 Performed at: [address] [id number] Cut In Station Operator: Yobany Blount PhD, Phone: [phone] [facility] ChildrenPathology Request for Lab Corpon 06-42-3264Bypwlgldl Request for Lab CorpNoCritical access hospital Physician GroupComment on above:Order Comment: SKIN SPECIMENResult Comment: See report. Scanned copy available in EMR. PERFORMED BY: [place] [address] PATHOLOGIST SYSTEM ADMINISTRATION MANAGER ANAHI TRAN M.D.Performed By: #### PATH TO [facility] #### [place] [address] USAIGP,APTIMA HPV,AGE GDLNon 35-47-4468WEH GDLN ACOG TESTING Note.NOMS HealthcareComment on above:TESTS RESULT FLAG UNITS REF RANGE LAB Clinician Provided Cytology Information Source.............Cervix;Endocervix No. of containers..01 ThinPrep Vial Age Alberto FORREST Marjorie... 30 FLAG LEGEND: L-Low Normal,H-High Normal,LL-Alert Low,HH-Alert High <-Panic Low,>-Panic High,A-Abnormal,AA-Critical Abnormal Performed at: 01 =[address] [phone] Vonnie Woodard MD, HPV APTIMANegativeNegativeNOMS HealthcareComment on above:This nucleic acid amplification test detects fourteen high- risk HPV types (16,18,31,33,35,39,45,51,52,56,58,59,66,68) without differentiation. Performed at: =[address] [id number] Cut In Station Operator: Vonnie Woodard MD, Phone: [phone] Performed at: [address] [phone] Cut In Station Operator: Vonnie Woodard MD, Phone: [phone] IGP, APTIMA HPV, RFX 16/18,45Note.NOMS HealthcareComment on above:TESTS RESULT FLAG UNITS REF RANGE LAB DIAGNOSIS: 02 NEGATIVE FOR INTRAEPITHELIAL LESION OR MALIGNANCY. Specimen adequacy: 02 Satisfactory for evaluation. Endocervical and/or squamous metaplastic cells (endocervical component) are present. Performed by: 02 Quiana Vysa, An Employee Sponsor Or Advocate And (ASCP) . 02 Note: Note 02 The [...] <-Panic Low,>-Panic High,A-Abnormal,AA-Critical Abnormal Performed at: [address] [address] Vonnie Woodard MD, BRUSH-SPATULA CERVIX ENDOCERVIX CLINISYNCNOSt. Joseph Medical CenterALL PROGESTERONEon 97-05-3788ZRFKIOCJDHKX67.2 ng/mL.[facility] HealthcareComment on above:Follicular phase 0.1 - 0.9 Luteal phase 1.8 - 23.9 Ovulation phase 0.1 - 12.0 First trimester 11.0 - 44.3 Second trimester 25.4 - 83.3 Third trimester 58.7 - 214.0 Postmenopausal 0.0 - 0.1 Performed at: [facility] LabcoJeff[facility] [address] [place], [place] [id number] Cut In Station Operator: Yobany Blount PhD, Phone: [phone] CLINISYNCNOFreeman Orthopaedics & Sports Medicine AND AUTO DIFFon 60-23-3437NYNCYXEF BASOPHIL0.1 X10E9/LNormal0.0-0.2PParkview Health Montpelier HospitalComment on above:Performed By: #### CBCGavin, CMP, 22117-8, 75081-5, THYR #### [facility] ([id number]) [address] [place] [address] 05115NMNFQGHJ NEUTROPHIL6.9 X10E9/LHigh1.5-6.6ProGraham Regional Medical CenterComment on above:Performed By: #### CBCA, [facility], , 37975-4, THYR #### [facility] ([id number]) [address] [place] [address] 48804Szdnixuid/100 WBC (Bld)1.1 %NormalWilson Street Hospital Comment on above:Performed By: #### CBCA, [facility], , 30564-2, THYR #### [facility] ([id number]) [address] [place] [address] 52813Bggrmwshkji (Bld) [#/Vol]0.3 10*3/uLNormal0.0-0.4[address] HospitalComment on above:Performed By: #### CBCA, [facility], , 79504-6, THYR #### [facility] ([id number]) [address] [place] [address] 12964Mcwkgkobmtk/100 WBC (Bld)2.3 %NormalWilson [address] Hospital Comment on above:Performed By: #### CBCA, CMP, , 87648-0, THYR #### [facility] ([id number]) [address] [place] [address] 67099Rsgumefdkhj distribution width (RBC) [Ratio]12.6 %Normal 11.5-15.0[address] HospitalComment on above:Performed By: #### CBCA, CMP, , 45448-5, THYR #### [facility] ([id number]) [address] [place] [address] 33268Jghjjwhndw (Bld) [Volume fraction]40.4 %Xzysdh13-05BwfLnthkiGraham Regional Medical CenterComment on above:Performed By: #### KARSON, CMP, 11766-2, 60362-1, THYR #### [facility] ([id number]) [address] [place] [address] 08748Lgjdggoohu (Bld) [Mass/Vol]13.7 g/wSHxfrrq00.7-15.5PParkview Health Montpelier HospitalComment on above:Performed By: #### KARSON, CMP, 67911-3, 29875-0, THYR #### [facility] ([id number]) [address] [place] [address] 18029Plszamlauvk (Bld) [#/Vol]3.6 10*3/uLHigh1.0-3.5PParkview Health Montpelier HospitalComment on above:Performed By: #### KARSON, CMP, 61531-4, 75209-5, THYR #### [facility] ([id number]) [address] [place] [address] 10207Npubeohiofx/100 WBC (Bld)31.6 %NormalWilson [address] Hospital Comment on above:Performed By: #### CBCGavin, CMP, 07868-3, 08119-6, THYR #### [facility] ([id number]) [address] [place] [address] 60084UUT (RBC) [Entitic mass]30.9 zcDiioua25-77DmfAmyzusGraham Regional Medical CenterComment on above:Performed By: #### CBCA, CMP, 74094-1, 35446-1, THYR #### [facility] ([id number]) [address] [place] [address] 15798UUTP (RBC) [Mass/Vol]34.0 g/dPWvunjn00-74SvaYjevjoWilson [address] HospitalComment on above:Performed By: #### CBCA, CMP, 25087-9, 71846-1, THYR #### [facility] ([id number]) [address] [place] [address] 33078SPS (RBC) [Entitic vol]91 aRIxzocr61-789NatSxolzf [facility]remont HospitalComment on above:Performed By: #### CBCA, CMP, 43367-9, 10676-5, THYR #### [facility] ([id number]) [address] [place] [address] 42522Jpizjfozy (Bld) [#/Vol]0.6 10*3/uLNormal0-0.9[address] HospitalComment on above:Performed By: #### CBCA, CMP, 30438-1, 90482-4, THYR #### [facility] ([id number]) [address] [place] [address] 03059Nkbcoocqn/100 WBC (Bld)5.4 %[facility] Comment on above:Performed By: #### CBCA, CMP, 65394-5, 87943-3, THYR #### [facility] ([id number]) [address] [place] [address] 60222Ukvvzaqvgby/100 WBC (Bld)59.6 %[facility] Comment on above:Performed By: #### CBCA, CMP, 19248-7, 49035-6, THYR #### [facility] ([id number]) [address] [place] [address] 87659Ifgldcfe mean volume (Bld) [Entitic vol]7.9 fLNormal7-12 ProMOroville HospitalComment on above:Performed By: #### CBCA, CMP, 88160- 9, 44789-0, THYR #### [facility] ([id number]) [address] [place] [address] 31267Sjyxddxna (Bld) [#/Vol]346 10*3/uLLlnita315-189GpvOyqspp [facility] HospitalComment on above:Performed By: #### KARSON, CMP, 39202-1, 83269-5, THYR #### [facility] ([id number]) [address] [place] [address] 54938QWL COUNT4.44 X10E12/LNormal3.80-5.20[facility] Comment on above:Performed By: #### KARSON, CMP, 79519-1, 07374-5, THYR #### [facility] ([id number]) [address] [place] [address] 41764LAD (Bld) [#/Vol]11.5 10*3/uLHigh4.0-11.0[address] HospitalComment on above:Performed By: #### KARSON, CMP, 47267-4, 70059-6, THYR #### [facility] ([id number]) [address] [place] [address] 86157GUFAKNPVMPOCO METABOLIC PANELon 93-34-4796Flexuhj [Mass/Vol]4.0 g/dLNormal3.2-5.3PParkview Health Montpelier HospitalComment on above:Performed By: #### KARSON, CMP, 94518-4, 91104-0, THYR #### [facility] ([id number]) [address] [place] [address] 80391JUE [Catalytic activity/Vol]50 U/ZRskuen50-631HllIbwkgyGraham Regional Medical CenterComment on above:Performed By: #### MATTHEWA, CMP, 65349-5, 87251-0, THYR #### [facility] ([id number]) [address] [place] [address] 75867FBQ [Catalytic activity/Vol]19 U/LNormal0-31PParkview Health Montpelier HospitalComment on above:Performed By: #### LUKAS TY, 49483-7, 96434-1, THYR #### [facility] ([id number]) [address] [place] [address] 67619Whlzx gap [Moles/Vol]11 mmol/LNormal5-15ProGraham Regional Medical CenterComment on above:Performed By: #### KARSON, LUKAS, 98330-4, 16821-3, THYR #### [facility] ([id number]) [address] [place] [address] 98039BHP [Catalytic activity/Vol]18 U/LNormal0-41ProGraham Regional Medical CenterComment on above:Performed By: #### LUKAS TY, 24494-2, 43658-2, THYR #### [facility] ([id number]) [address] [place] [address] 67000Vnewllsgb [Mass/Vol]0.4 mg/dLNormal0.3-1.2PParkview Health Montpelier HospitalComment on above:Performed By: #### LUKAS TY, 62857-2, 70382-7, THYR #### [facility] ([id number]) [address] [place] [address] 13070Nndynfd [Mass/Vol]9.4 mg/dLNormal8.5-10.5PParkview Health Montpelier HospitalComment on above:Performed By: #### KARSON, LUKAS, 64894-5, 25504-4, THYR #### [facility] ([id number]) [address] [place] [address] 08644Rkvunlto [Moles/Vol]106 mmol/ZQtkove25-909NztNmbtijGraham Regional Medical CenterComment on above:Performed By: #### LUKAS TY, 73426-6, 10510-6, THYR #### [facility] ([id number]) [address] [place] [address] 19827YI3 [Moles/Vol]23 mmol/TRbzvol02-62MewQfhfsqParkview Health Montpelier Hospital Comment on above:Performed By: #### LUKAS TY, 27483-6, 79437-4, THYR #### [facility] ([id number]) [address] [place] [address] 81145Gjgczzgzpn [Mass/Vol]0.76 mg/dLNormal0.40-1.00[address] HospitalComment on above:Result Comment: METHOD TRACEABLE TO IDMS STANDARD Performed By: #### LUKAS TY, 15658-8, 75381-3, THYR #### [facility] ([id number]) [address] [place] [address] 71544rSSL (CKD-EPI) NON-RACE DEPENDENT>90Normal>59ProGraham Regional Medical CenterComment on above:Result Comment: Reported eGFR is based on the CKD-EPI 2020 equation that does not use a race coefficient.Performed By: #### LUKAS TY, , 29737-3, THYR #### [facility] ([id number]) [address] [place] [address] 52363Xgozonu [Mass/Vol]114 mg/mXXyeu61-51JmgVsvsufWilson [address] Hospital Comment on above:Performed By: #### LUKAS TY, , 21377-3, THYR #### [facility] ([id number]) [address] [place] [address] 01080Ouivrnmfn [Moles/Vol]4.1 mmol/LNormal3.5-5.0[address] HospitalComment on above:Performed By: #### LUKAS TY, 95733-5, 50772-1, THYR #### [facility] ([id number]) [address] [place] [address] 73981Qvwpxnq [Mass/Vol]7.3 g/dLNormal6.0-8.0[address] HospitalComment on above:Performed By: #### CBCGavin, CMP, 80486-5, 89723-4, THYR #### [facility] ([id number]) [address] [place] [address] 85218Txfdco [Moles/Vol]140 mmol/SHfdyfs408-223VvcCkotey [facility] HospitalComment on above:Performed By: #### KARSON, LUKAS, 85506-2, 39166-7, THYR #### [facility] ([id number]) [address] [place] [address] 80868Jtwn nitrogen [Mass/Vol]13 mg/dLNormal5-23[address] HospitalComment on above:Performed By: #### KARSON, LUKAS, 83992-9, 15378-1, THYR #### [facility] ([id number]) [address] [place] [address] 10415Kkdhgi D-dimer DDU (PPP) [Mass/Vol]on 11-04-2024D DIMER<150 Normal<[address] HospitalComup health system on above:Result Comment: Results <255 ng/mL DDU: The presence of a VTE can safely be excluded with a negative D-Dimer result and Wells score. A negative result doesn't exclude the possibility of DIC. The test be repeated along with other diagnostic tests if the patient's symptoms persist or worsen. [email or web address] By: #### CBCA, CMP, 02622-7, 37770-5, THYR #### [facility] ([id number]) [address] [place] [address] 19470AVX ( test) Ql (U)on 00-50-0840Dkwa HCG ( test) Ql (U)NegativeNormalNEGProGraham Regional Medical CenterComment on above: Performed By: #### 2106-3 #### [facility] ([id number]) [address] [place] [address], [place] [address]OOLVQIRGGrq 52-73-1429Sqnzvzjci [Mass/Vol]2.3 mg/dLNormal 1.8-2.6ProGraham Regional Medical CenterComment on above:Performed By: #### LUKAS TY, 82535-8, 71346-6, THYR #### [facility] ([id number]) [address] [place] [address], [place] [address]CRXZBVM PROFILEon 28-03-6043Auar T4 [Mass/Vol]0.88 ng/dLNormal 0.61-1.60ProGraham Regional Medical CenterComment on above:Performed By: #### LUKAS TY, 36407-5, 50860-7, THYR #### [facility] ([id number]) [address] [place] [address], [place] [address]LTC9.78 uIU/mLNormal0.49-4.67ProGraham Regional Medical CenterComment on above:Performed By: #### LUKAS TY, 34256-1, 06815-4, THYR #### [facility] ([id number]) [address] [place] [address] [place] [address]JOR MACROSCOPIC NURon 29-74-9709HGULBPWVK NURNegativeNormalNEG ProMOroville HospitalComment on above:Performed By: #### NUM #### [facility] ([id number]) [address] [place] [address], [place] [address]PEFAQ/HGB NURTraceAbnormalNEGWilson Street HospitalComment on above:Performed By: #### NUM #### [facility] ([id number]) [address] [place] [address], [place] [address]ZFARZHH NURNegativeNormalNEGWilson Street HospitalComment on above:Performed By: #### NUM #### [facility] ([id number]) [address] [place] [address] 18472ORGUFHE NURNegativeNormalNEGWilson [address] HospitalComment on above:Performed By: #### NUM #### [facility] ([id number]) [address] [place] [address] 45429UOFKWUWFX ESTERASE NURSmallAbnormalNEGWilson Street HospitalComment on above:Performed By: #### NUM #### [facility] ([id number]) [address] [place] [address] 58328DNTKYBA NURNegativeNormalNEGWilson [address] HospitalComment on above:Performed By: #### NUM #### [facility] ([id number]) [address] [place] [address] 46263YH NUR6.0Wytoub4.0-8.5PParkview Health Montpelier HospitalComment on above:Performed By: #### NUM #### [facility] ([id number]) [address] [place] [address] 03219NUQPHXM NURNeg[address]NormalNE[address] HospitalComment on above:Performed By: #### NUM #### [facility] ([id number]) [address] [place] [address] [place] [address]GIBMPOIB GRAVITY NUR1.545Zqqbbg0.003-1.035ProGraham Regional Medical CenterComment on above:Performed By: #### NUM #### [facility] ([id number]) [address] [place] [address] 36322DEMHBFYMPTQS NUR0.2 eu/dLNormal<1.1PParkview Health Montpelier Hospital Comment on above:Performed By: #### NUM #### [facility] ([id number]) [address] [place] [address] 06069AM CHEST 1 VWon 90-94-6403FM CHEST 1 VWXR CHEST 1 VW History: Palpitations Exam/Technique: Portable upright AP chest Comparison: 11/12/2022 Findings: There is no active pulmonary or pleural disease displayed. Cardiac and mediastinal contours appear within normal limits on this AP projection. IMPRESSION: No evidence of active pulmonary disease. Finalized by Tres Giron MD on 11/04/2024 1:02 AMNormalFort Hamilton Hospitalca [facility] PROGESTERONEon 76-32-2825OGYQGQAHGETD73.8 ng/mL.[facility] Comment on above:Follicular phase 0.1 - 0.9 Luteal phase 1.8 - 23.9 Ovulation phase 0.1 - 12.0 First trimester 11.0 - 44.3 Second trimester 25.4 - 83.3 Third trimester 58.7 - 214.0 Postmenopausal 0.0 - 0.1 Performed at: [facility] AdFinance[address] [id number] Cut In Station Operator: Yobany Blount PhD, Phone: [phone] [facility] HOSPITALCoupleSt. Luke's Hospital PROGESTERONEon 81-30-0300NROMPWDPNOMR29.3 ng/mL.[facility] HealthcareComment on above:Follicular phase 0.1 - 0.9 Luteal phase 1.8 - 23.9 Ovulation phase 0.1 - 12.0 First trimester 11.0 - 44.3 Second trimester 25.4 - 83.3 Third trimester 58.7 - 214.0 Postmenopausal 0.0 - 0.1 Performed at: [facility] [employer] [phone] Cut In Station Operator: Yobany Blount PhD, Phone: [phone] [facility] PROGESTERONEon 47-21-9342GRBVNHZNZPWV7.5 ng/mL.[facility]S HealthcareComment on above:Follicular phase 0.1 - 0.9 Luteal phase 1.8 - 23.9 Ovulation phase 0.1 - 12.0 First trimester 11.0 - 44.3 Second trimester 25.4 - 83.3 Third trimester 58.7 - 214.0 Postmenopausal 0.0 - 0.1 Performed at: [facility] [address] [id number] Cut In Station Operator: Yobany Blount PhD, Phone: [phone] [facility] HOSPITALUserAppBaptist Memorial Hospital for Women PROGESTERONEon [id number] ng/mL.[facility] HealthcareComment on above:Follicular phase 0.1 - 0.9 Luteal phase 1.8 - 23.9 Ovulation phase 0.1 - 12.0 First trimester 11.0 - 44.3 Second trimester 25.4 - 83.3 Third trimester 58.7 - 214.0 Postmenopausal 0.0 - 0.1 Performed at: [facility] Lab[address] [phone] [employer] Operator: Yobany Blount PhD, Phone: [phone] [facility] CBC WITH AUTO DIFFon [id number] ABSOLUTE AUTO0.1NOMS HealthcareBasophils/100 WBC (Bld)0.6 %0.2 - 2.0 %[facility] Eosinophils/100 WBC (Bld)2.8 %0.9 - 7.0 %NOM HealthcareErythrocyte distribution width (RBC) [Ratio]12.1 %11.0 - 15.0 %NOM HealthcareHematocrit (Bld) [Volume fraction]40.6 %36.0 - 48.0 %[facility] HospitalHemoglobin (Bld) [Mass/Vol]13.5 g/dL 12.0 - 16.0 g/dLSaint John's HospitalIMMATURE GRANULOCYTES ABS AUTO0.02N[facility] Immature granulocytes/100 WBC (Bld)0.3 %0.0 - 0.5 %NOMExcelsior Springs Medical CenterLYMPHOCYTES ABSOLUTE AUTO1.8NOMS HealthcareLymphocytes/100 WBC (Bld)23.0 %20.5 - 60.0 %[facility] CenterH (RBC) [Entitic mass]30.6 pg26.7 - 34.0 pgNOExcelsior Springs Medical CenterHC (RBC) [Mass/Vol]33.3 g/dL29.9 - 35.2 g/dLSaint John's HospitalMCV (RBC) [Entitic vol]92.1 fL 81.0 - 99.0 fLNOSt. Joseph Medical CenterMONOCYTES ABSOLUTE AUTO0.5NOMS [facility] Monocytes/100 WBC (Bld)6.6 %1.7 - 12.0 %NOM HealthcareNEUTROPHILS ABSOLUTE AUTO 5.3NOMS HealthcareNeutrophils/100 WBC (Bld)66.7 %43.0 - 75.0 %[facility] Platelet mean volume (Bld) [Entitic vol]9.8 fL9.5 - 13.5 fLNOMS [facility] EO #0.2NOMS [facility] HealthTBH [id number] [facility] RBC4.41NOMS [facility] WBC8.0 NOMS HealthcareCLINISYNCNOMS HealthcareUS PELVIS W/ TRANSVAGINALon 87-10[place]0663[place], [place] [address] Ultrasound Report Signed Patient: ELLEN RAMIRES MR#: [id number] : 1990 Acct:[id number] Age/Sex: 34 / F ADM Date: 04/24/24 Loc: US Attending Dr: Caesar Broderick D.O. Ordering Physician: Caesar Broderick D.O. Date of Service: 04/24/24 Procedure(s): US pelvis w/ transvaginal Accession Number(s): [id number] cc: Caesar Broderick D.O.; Sabiha Aviles [place] [address] Patient Name: ELLEN RAMIRES MRN: [id number] date: 1990 Sex: F Assigned Patient Location: US Current Patient Location: Accession/Order Number: [id number] Exam Date: 04/24/2024 14:00 Report Date: 04/25/2024 06:34 At the request of: CAESAR BRODERICK Procedure: US pelvis w/ transvaginal EXAMINATION: [...] suggest polycystic ovarian syndrome. Electronically authenticated by: LUBNA DEAN Date: 04/25/2024 06:34 Dictated By: Lubna Dean M.D. Signed By: 04/25/2437 DD/ TD/TT: Senior Hr Business Partner:TBHRadiology, Radiologist, - 04/25/2024 [place] [address] Ultrasound Report Signed Patient: ELLEN RAMIRES MR#: [id number] : 1990 Acct:[id number] Age/Sex: 34 / F ADM Date: 04/24/24 Loc: US Attending Dr: Caesar Broderick D.O. Ordering Physician: Caesar Broderick D.O. Date of Service: 04/24/24 Procedure(s): US pelvis w/ transvaginal Accession Number(s): [id number] cc: Caesar Broderick D.O.; Sabiha Aviles PRICE ACCURACY SUPERVISOR [place] [id number] Patient Name: ELLEN RAMIRES MRN: [id number] date: 1990 Sex: F Assigned Patient Location: Current Patient Location: Accession/Order Number: [id number] Exam Date: 04/24/2024 14:00 Report Date: 04/25/2024 06:34 At the request of: CAESAR BRODERICK Procedure: US pelvis w/ transvaginal EXAMINATION: [...] suggest polycystic ovarian syndrome. Electronically authenticated by: LUBNA DEAN Date: 04/25/2024 06:34 Dictated By: Lubna Dean M.D. Signed By: 04/25/2437 DD/ 3 TD/TT: Senior Hr Business Partner: [facility] HospitalRadiology Study observation (narrative)[facility] HospitalUS PELVIS W/ TRANSVAGINALOrdered By: Radiologist Radiology on 06-93-7712GERASaint John's Hospital Work Phone: aLL CBC WITH AUTO DIFFon 37-08-3887DADWIZYVS ABSOLUTE AUTO0.1NOMS HealthcareBasophils/100 WBC (Bld)0.5 %0.2 - 2.0 %[facility] Eosinophils/100 WBC (Bld)2.8 %0.9 - 7.0 %[facility] HospitalErythrocyte distribution width (RBC) [Ratio]12.0 %11.0 - 15.0 %[facility] HospitalHematocrit (Bld) [Volume fraction]39.7 %36.0 - 48.0 %[facility] HospitalHemoglobin (Bld) [Mass/Vol]13.4 g/dL 12.0 - 16.0 g/dLSaint John's HospitalIMMATURE GRANULOCYTES ABS AUTO0.03NOSt. [facility] Medical Center Immature granulocytes/100 WBC (Bld)0.3 %0.0 - 0.5 %[facility] HospitalInterpretation and review of laboratory resultsAbnormalNOSt. Joseph Medical CenterLYMPHOCYTES ABSOLUTE AUTO2.9NOMS [facility] HealthLymphocytes/100 WBC (Bld)24.4 %20.5 - 60.0 %[facility] CenterH (RBC) [Entitic mass]30.7 pg26.7 - 34.0 pgNorthwest Medical CenterHC (RBC) [Mass/Vol]33.8 g/dL29.9 - 35.2 g/dLNorthwest Medical CenterV (RBC) [Entitic vol]91.1 fL 81.0 - 99.0 fLBRIGHAM CITY COMMUNITY [facility]PITAL HealthcareMONOCYTES ABSOLUTE AUTO0.6NOMS Healthcare Monocytes/100 WBC (Bld)5.2 %1.7 - 12.0 %[facility] HealthcareNEUTROPHILS ABSOLUTE AUTO 8.0HighNOCT HealthcareNeutrophils/100 WBC (Bld)66.8 %43.0 - 75.0 %[facility] HealthcarePlatelet mean volume (Bld) [Entitic vol]10.1 fL9.5 - 13.5 fLSaint John's HospitalTBH EO #0.3NOMS HealthcareTB [id number] Parkview HealthTB RBC4.36NOMS Parkview HealthTBH WBC12.0HighNOCT HealthcareCLINISYNCNOMS HealthcarePOCT EKGOrdered By: Sheyla Powell on 08-02-0793CncIyvmokCommunity Regional Medical CenterNo Panel Information Ordered By: Pinky Singh on 59-49-4657Iezbi Strep (POC)[facility] HospitalCytology Cervical or vaginal smear or scraping studyon 11-19-2022 [facility] HealthcareCOVID/FLU/RSV RT-PCRon 80-46-0473COFR-CoV-2 (COVID-19) RNA PEACE+probe Ql (Unsp spec)PositiveNort Razume Other COVID/FLU/RSV RT-PCRNegativeNort Razume Other Vital Signs Date TimeVital SignValuePerforming MzcomzorvFyojedct44-34-2535 13:42-0500Body mass index (BMI) [Ratio]43.33 kg/f4Mynqb Davie DO Work Phone: [facility] HospitalKiklufdufu20-71-3719 13:42-0500Body eymukk180.28 kgCorey Davie DO Work Phone: NOSt. Joseph Medical CenterTstrqfbkyx35-06-3634 13:42-0500Diastolic blood nvpmidwr45 mm[Hg]Caesar Davie DO Work Phone: [phone] [place], [place] [address]Tznqhrpcbf68-73-3493 13:42-0500Systolic blood ucucqfxu273 mm[Hg]Caesar Davie DO Work Phone: [phone] [place], [place] 8912210-15-2025 09:03-0400Diastolic blood rhikqrdz37 mm[Hg]Royd Uyen PRICE ACCURACY SUPERVISOR Work Phone: 1(419)[facility] [place], [place] [address]Eptqxwhjwg16-09-7302 09:03-0400Systolic blood hodgbmoo213 mm[Hg]Rody Uyen PRICE ACCURACY SUPERVISOR Work Phone: 1([phone])[address] [place] [address]-15-2025 09:02-0400Body mass index (BMI) [Ratio]42.99 kg/d5Ednswimk Uyen PRICE ACCURACY SUPERVISOR Work Phone: 1(488)[address] [place], [place] 8912210-15-2025 09:02-0400Body bigzsf962.25 kgKristina Uyen PRICE ACCURACY SUPERVISOR Work Phone: [phone])[address] [place], [place] 8912210-09-2025 16:31-0400Body mass index (BMI) [Ratio]43.49 kg/v6Ifxaflrr Uyen PRICE ACCURACY SUPERVISOR Work Phone: 1(128)[address] [place], [place] 8912210-09-2025 16:31-0400Body mravxy497.73 kgKristina Uyen PRICE ACCURACY SUPERVISOR Work Phone: 1(790)[facility] [place], [place] [address]Nearsfhgnb19-04-3011 16:31-0400Diastolic blood kyzbvqop98 mm[Hg]Rody Uyen PRICE ACCURACY SUPERVISOR Work Phone: 1(419)[address] [place], [place] 8912210-09-2025 16:31-0400Systolic blood ifredtte877 mm[Hg]Rody Uyen PRICE ACCURACY SUPERVISOR Work Phone: 1(270)[address] [place], [place] 8912210-02-2025 15:07-0400Body mass index (BMI) [Ratio]43.03 kg/z1Eayxhvby Uyen PRICE ACCURACY SUPERVISOR Work Phone: 1(419)[address] [place], [place] 8912210-02-2025 15:07-0400Body ohnuxv134.37 kgKristina Uyen PRICE ACCURACY SUPERVISOR Work Phone: 1(926)[address] [place], [place] 8912210-02-2025 15:07-0400Diastolic blood muqythps07 mm[Hg]Rody Qiu PRICE ACCURACY SUPERVISOR Work Phone: 1(450)[address] [place], [place] 8912210-02-2025 15:07-0400Systolic blood dlovncdz888 mm[Hg]Rody Qiu PRICE ACCURACY SUPERVISOR Work Phone: 1(419)[address] [place], [place] 8912209-26-2025 07:51-0400Body egneyz708.7 cmYordy Cruz MD Work Phone: 1(419)[address] [place], [place] 4814609-26-2025 07:51-0400Body mass index (BMI) [Ratio]42.96 kg/m2Yordy Cruz MD Work Phone: 1(419)[address] [place], [place] 4814609-26-2025 07:51-0400Body .14 kgYordy Cruz MD Work Phone: 1(419)[address] [place], [place] 4814609-26-2025 07:51-0400Diastolic blood tbjeuzbm75 mm[Hg]Yordy Cruz MD Work Phone: 1(419)[address] [place], [place] 4814609-26-2025 07:51-0400Heart rate 87 /Glenna Cruz MD Work Phone: 1(419)[address] [place], [place] 4814609-26-2025 07:51-0400Systolic blood xrqfwjei206 mm[Hg]Yordy Cruz MD Work Phone: 1(550)[address] [place], [place] 4814609-04-2025 11:30-0400Body mass index (BMI) [Ratio]42.88 kg/l4Givnj Davie DO Work Phone: 1(865)[facility] [place], [place] [address]Zmrgujdttr78-47-0245 11:30-0400Body .91 kgCorey Davie DO Work Phone: 1(930)[address] [place], [place] 8912209-04-2025 11:30-0400Diastolic blood dfaxrcbl35 mm[Hg]Caesar Davie DO Work Phone: 1(318)[address] [place], [place] 8912209-04-2025 11:30-0400Systolic blood zlsurrny597 mm[Hg]Caesar Davie DO Work Phone: 1(174)[address] [place], [place] 8912208-21-2025 11:00-0400Body mass index (BMI) [Ratio]42.63 kg/h6Khumb Davie DO Work Phone: 1(247)443-[address] [place], [place] [address]Oinqhazpmt17-51-8390 11:00-0400Body ivnrpv990.19 kgCorey Davie DO Work Phone: 1(218)936-[address] [place], [place] [address]Svyuzygshe65-82-5987 11:00-0400Diastolic blood gzpuvenn59 mm[Hg]Caesar Davie DO Work Phone: 1(918)933-[address] [place], [place] [address]Hekxdbzcjq19-32-8537 11:00-0400Systolic blood mm[Hg]Caesar Davie DO Work Phone: 1(793)374-[address] [place], [place] [address]Hjqfghsfrg75-07-8503 11:42-0400Body mass index (BMI) [Ratio]42.29 kg/h0Itwby Davie DO Work Phone: 1(794)284-[address] [place], [place] [address]Vkbogvmsxx70-63-1837 11:42-0400Body bkihct271.15 kgCorey Davie DO Work Phone: 1(949)822-[address] [place], [place] [address]Vitbbujpqj10-53-6880 11:42-0400Diastolic blood kvohkssy59 mm[Hg]Caesar Davie DO Work Phone: 1(882)895-[address] [place], [place] [address]Gcwlcxfnjd84-16-7196 11:42-0400Systolic blood gcpmurnp135 mm[Hg]Caesar Davie DO Work Phone: 1(616)774-[address] [place], [place] [address]Zrdhzhwrcb74-81-5359 10:03-0400Body mass index (BMI) [Ratio]41.66 kg/b4CulnmB[facility]07-11-2025 10:03-0400Body weight 124.29 kgBinghamton [facility] Hospital07-11-2025 10:03-0400Diastolic blood boovwvyh51 mm[Hg][facility]07-11-2025 10:03-0400Systolic blood mchsaxqk125 mm[Hg][facility]05-15-2025 10:52-0400Body ysovxm927.7 Gilmer Lopez MD Work Phone: [facility]05-15-2025 10:52-0400 Body mass index (BMI) [Ratio]40.84 kg/k8GgahrlRobbie Lopez MD Work Phone: 1(216)[address] [place], [place] 7355905-15-2025 10:52-0400 Body hetrvlsvusg87.81 [degF]Robbie Lopez MD Work Phone: 1(216)[address] [place], [place] 7355905-15-2025 10:52-0400 Body nkykdm144.84 kgRobbie Lopez MD Work Phone: 1(216)[address] [place], [place] 7355905-15-2025 10:52-0400 Diastolic blood uqokvetw02 mm[Hg]Robbie Lopez MD Work Phone: 1(216)[address] [place], [place] 7355905-15-2025 10:52-0400 Heart rate73 /minRobbie Lopez MD Work Phone: 1(216)[address] [place], [place] 7355905-15-2025 10:52-0400 Systolic blood oqflbgoq546 mm[Hg]Robbie Lopez MD Work Phone: 1(216)[address] [place], [place] 7355904-29-2025 13:38-0400 Body mass index (BMI) [Ratio]40.35 kg/d1Joyrg Davie DO Work Phone: 1(609)430-[address] [place], [place] [address]Hdvxizgjze11-10-8673 13:38-0400Body dlzijv557.39 kgCorey Davie DO Work Phone: 1(124)329-[address] [place], [place] [address]Kjzekfaoqn87-58-0369 13:38-0400Diastolic blood ngsssnin00 mm[Hg]Caesar Davie DO Work Phone: 1(120)512-[address] [place], [place] [address]Nljeimffrd57-82-0596 13:38-0400Systolic blood xikimyiw160 mm[Hg]Caesar Davie DO Work Phone: 1(110)123-[address] [place], [place] [address]Euoopdvweb23-49-8068 14:36-0400Body mass index (BMI) [Ratio]40.75 kg/d3Oavtp Davie DO Work Phone: 1(776)687-[address] [place], [place] [address]Vjmhzevzlk51-25-4556 14:36-0400Body soyyqx183.56 kgCorey Davie DO Work Phone: 1(560)546-[address] [place] [address]-21-2025 14:36-0400Diastolic blood zkuqudxd13 mm[Hg]Caesar Davie DO Work Phone: 1(296)829-[address] [place], [place] [address]Iczwywsxxd36-56-6868 14:36-0400Systolic blood mm[Hg]Caesar Davie DO Work Phone: 1(017)[facility] [place], [place] [address]Eugwltyvbu36-57-4181 14:03-0400Diastolic blood zswdiksw76 mm[Hg]Caesar Davie DO Work Phone: 1(399)[facility] [place], [place] [address]Msgqopmbiw61-61-8266 14:03-0400Systolic blood gkshumkk454 mm[Hg]Caesar Davie DO Work Phone: 1(876)[facility] [place], [place] [address]Nevcbrzwkx25-22-9507 13:12-0500Body mass index (BMI) [Ratio]40.01 kg/c8Qkskg Davie DO Work Phone: 1(322)[facility] [place], [place] [address]Mjwmtnjyhh37-50-5334 13:12-0500Body aqqneb236.35 kgCorey Davie DO Work Phone: 1(375)[facility] [place], [place] [address]Wvnaeooddu79-20-0213 13:12-0500Diastolic blood odcneonf87 mm[Hg]Caesar Davie DO Work Phone: 1(307)[facility] [place], [place] [address]Zbvoofvjpe67-81-9130 13:12-0500Systolic blood abaiwiso146 mm[Hg]Caesar Davie DO Work Phone: 1(831)[facility] [place], [place] [address]Kpaukgynnu44-37-2038 14:39-0400Body ruabow935.7 cmCorey Davie DO Work Phone: 1(080)[facility] [place], [place] [address]Uunnrxmces68-70-6436 14:39-0400Body mass index (BMI) [Ratio]39.53 kg/f4Xiush Davie DO Work Phone: 1(824)[facility] [place], [place] [address]Mcizisrwpa77-35-9406 14:39-0400Body xqwapb072.94 kgCorey Davie DO Work Phone: 1(470)[facility] [place], [place] [address]Tbwakyipsq98-23-5095 14:39-0400Diastolic blood mqvvnmaz03 mm[Hg]Caesar Davie DO Work Phone: 1(229)[address] [place], [place] 8912210-21-2024 14:39-0400Systolic blood ysyjdmnd288 mm[Hg]Caesar Davie DO Work Phone: [facility] HospitalGxjjbirbsu94-83-6988 11:39-0400Body mibmjf211.84 kgCorey Davie DO Work Phone: [facility] HospitalSgrxgdkbea30-36-4754 11:39-0400Diastolic blood isboawai13 mm[Hg]Caesar Davie DO Work Phone: [facility] HospitalMqhxduhwke82-59-0338 11:39-0400Systolic blood knzfaofv407 mm[Hg]Caesar Davie DO Work Phone: 1(347)423-[address] [place], [place] [address]Yvtawqdpok34-91-0964 09:36-0400Body yaprvm350.57 kgCorey Davie DO Work Phone: [facility] HospitalQlfoaegtkg14-24-4049 09:36-0400Diastolic blood xbnfudlg01 mm[Hg]Caesar Davie DO Work Phone: 1(727)713-[address] [place], [place] [address]Lkhovsiita94-23-1835 09:36-0400Systolic blood ufjueimr443 mm[Hg]Caesar Davie DO Work Phone: 1(904)671-[address] [place], [place] [address]Avcnzgtuyv14-35-9781 10:50-0400Body wixggr951.7 Ji Fraire MD Work Phone: [facility]07-23-2024 10:50-0400Body mass index (BMI) [Ratio]40.66 kg/l4EciapiJames Fraire MD Work Phone: 1(442)152-[address] [place], [place] 4587107-23-2024 10:50-0400Body .29 kgJames Fraire MD Work Phone: [facility]07-23-2024 10:50-0400Diastolic blood fcryklcv93 mm[Hg]James Fraire MD Work Phone: [facility]07-23-2024 10:50-0400Heart rate 83 /minJames Fraire MD Work Phone: [facility]07-23-2024 10:50-7079AsE4% (BldA) [Mass fraction]98 %James Fraire MD Work Phone: [facility]07-23-2024 10:50-0400Systolic blood urvovznj914 mm[Hg]James Fraire MD Work Phone: [facility]04-04-2024 12:26-0400Body xmdyus414.72 cmOhio [facility]04-04-2024 12:26-0400Body mass index (BMI) [Ratio]42.6 kg/r5UrsrcjbxfOhio Valley Surgical Hospital04-04-2024 12:26-0400Body extwvcbtoit37.3 [degF][facility]04-04-2024 12:26-0400Body .11 kgOhio Valley Surgical Hospital04-04-2024 12:26-0400Diastolic blood qouzrvee54 mm[Hg][facility] 11-24-2023 12:26-0400Heart rate75 /[facility] 11-24-2023 12:26-0400Respiratory rate18 /[facility] 11-24-2023 12:26-4164EaZ1% (BldA) [Mass fraction]98 %[facility]04-04-2024 12:26-0400Systolic blood cjgiwmad824 mm[Hg][facility]02-20-2023 11:35-0500Body okldfg245.72 Glendy Singh Other [employer] Other 02-20-2023 11:35-0500Body mass index (BMI) [Ratio] 42.27 kg/i3FcfksiPinky Singh Other [employer] Other 02-20-2023 11:35-0500Body wuxjuabahrp74.8 [degF]Pinky Singh Other [employer] Other 02-20-2023 11:35-0500Body .1 kgPinky Singh Other [employer] Other 02-20-2023 11:35-0500Respiratory rate18 /minPinky Singh Other [employer] Other 02-20-2023 11:35-3880HyD6% (BldA) [Mass fraction]98 % Pniky Singh Other [employer] Other Encounters Encounter DateEncounter TypeCare ProviderFacilityStart: 06-24-2025 End: 23-05-2567Avqtgx flowsheetCorey Davie DO Work Phone: [facility] [place] [facility]YNStart: 06-24-2025 End: 15-64-9921Xtjlyn flowsheetCorey Davie DO Work Phone: [facility]BGYNStart: 06-24-2025 End: 12-05-3382Fislgx outpatient visit 15 minutesCorey Davie DO Work Phone: noms [place] OBGYNComment on above:Second trimester ([facility]); 25 weeks gestation of ([facility]); H/O pre-eclampsia in prior , currently ([facility]); Vitamin D deficiency; Chronic hypertension affecting ([facility]); Diabetes mellitus screeningStart: 06-24-2025 End: 24-00-0461hhpueretumEDCEJ FAZIONot AvailableStart: 06-18-2025 End: 77-14-2288Ukbllv outpatient visit 25 minutesYordy Cruz MD Work Phone: [phone]-Lweqv [facility] Comment on above:Chronic hypertension affecting (Primary Dx); 20 weeks gestation of ; Anxiety disorder affecting , antepartum; Acute palmoplantar pustular psoriasis; Severe obesity due to excess calories affecting , antepartum ([facility]) Start: 06-18-2025 End: 22-99-2603hmzylxhdwlRZS [facility] HospitalStart: 06-18-2025 End: 10-08-6514kceykscadxLNNZB [facility] HospitalStart: 06-05-2025 End: 56-01-8241Klqqto flowsMark Qiu PRICE ACCURACY SUPERVISOR Work Phone: [facility]BGYNStart: 06-05-2025 End: 56-62-7440Rsphwt flowsMark Qiu PRICE ACCURACY SUPERVISOR Work Phone: [facility]BGYNStart: 06-05-2025 End: 76-00-7165Zswnhmrk flow Karel Qiu PRICE ACCURACY SUPERVISOR Work Phone: NOMS [facility] OBGYNComment on above:Second trimester ([facility]); 23 weeks gestation of ([facility])Start: 06-05-2025 End: 42-95-0860bsgdkdykrkWJAWMLPT UYENNot AvailableStart: 05-30-2025 End: 42-59-2140Tkdmjenc flow Karel Qiu PRICE ACCURACY SUPERVISOR Work Phone: [facility] [place] [facility]BGYNComment on above:Chronic hypertension affecting ([facility]) (Primary Dx); Second trimester ([facility]); 22 weeks gestation of ([facility])Start: 05-30-2025 End: 85-92-2849jswcwhebtxYGHZKJZI UYENNot AvailableStart: 05-30-2025 End: 04-71-8525Jcifww flowsMark Qiu PRICE ACCURACY SUPERVISOR Work Phone: [facility]BGYNStart: 05-30-2025 End: 33-11-0602Gxugez flowsMark Qiu PRICE ACCURACY SUPERVISOR Work Phone: [facility] [place] [facility]BGYNStart: 05-24-2025 End: 55-47-2290Jahbti OnlyAmy Nikkie LPNMaternal- Medicine at [facility] for RehabilitationComment on above:Acute palmoplantar pustular psoriasis (Primary Dx); Chronic hypertension affecting ; Severe obesity due to excess calories affecting , antepartum ([facility]); Hypertension affecting in second trimesterStart: 05-23-2025 End: 36-05-2951kdljxdgxxsPAIESQUS EBERLYNot AvailableStart: 05-23-2025 End: 28-10-9505Xafhiugw flow Karel Qiu NP Work Phone: [facility] OBGYNComment on above:Second trimester ([facility]); 21 weeks gestation of ([facility]); induced hypertension, antepartum ([facility]); Vitamin D deficiency; H/O pre-eclampsia in prior , currently ([facility])Start: 05-23-2025 End: 98-96-3714Qbyzyf Jennyfer Qiu NP Work Phone: [facility] [place] [facility]BGYNStart: 05-23-2025 End: 59-90-0780Oeiyou Jennyfer Qiu NP Work Phone: NOGM [place] [facility]BGYNStart: 05-23-2025 End: 47-57-9418Ockohjkkz Result EncounterCorey Davie DO Work Phone: noms External Department UnsolicitedStart: 05-17-2025 End: 32-29-0954Woztzs consultation new/estab patient 60 Hannah Haer MD Work Phone: [phone]-Hffxr [facility] Comment on above:Chronic hypertension affecting (Primary Dx); Acute palmoplantar pustular psoriasis; Severe obesity due to excess calories affecting , antepartum ([facility]); 20 weeks gestation of pregnancyStart: 05-17-2025 End: 92-40-1518Bkisgh OnlyAmy Nikkie LPNMaternal- Medicine at [facility] for RehabilitationComment on above:Acute palmoplantar pustular psoriasis (Primary Dx); Chronic hypertension affecting ; Severe obesity due to excess calories affecting , antepartum ([facility]); Hypertension affecting in second trimesterStart: 04-29-2025 End: 19-21-0958Aerbfufle department patient visitCOMMUNBERGER HOS[facility]start: 04-25-2025 End: 31-41-5647Zojdgc flowsheetCorey Davie DO Work Phone: noMS [place] [facility]BGYNStart: 04-25-2025 End: 20-42-0771Fjwmky flowsheetCorey Davie DO Work Phone: noMS [place] [facility]BGYNStart: 04-25-2025 End: 93-58-3302Rjefpw outpatient visit 15 minutesCorey Davie DO Work Phone: noms [facility] OBGYNComment on above:Screening, , for anatomic survey ([facility]); Second trimester ([facility]); 17 weeks gestation of ([facility]); Screen for STD (sexually transmitted disease); Need for maternal serum alpha-protein (MSAFP) screening ([facility]); induced hypertension, antepartum ([facility]); Vitamin D deficiencyStart: 04-25-2025 End: 03-10-2211pcghfwdcvhGESNH FAZIONot AvailableStart: 04-23-2025 End: 04-21-3688Urpjk Caroline Cruz MD Work Phone: [phone]-[place] [facility] Start: 04-21-2025 End: 87-54-8139Ybjpyhmwi Result EncounterCorey Davie DO Work Phone: noms External Department UnsolicitedStart: 04-21-2025 End: 61-08-8921Ntwbjulvb Result EncounterCorey Davie DO Work Phone: noms External Department UnsolicitedStart: 04-19-2025 End: 70-91-5565BmtrvrBettina Moise RNMaternal- Medicine at [facility] RehabilitationComment on above:Hypertension affecting in second trimester (Primary Dx)Start: 04-17-2025 End: 71-13-6420Qyddwyncy Result EncounterCorey Davie DO Work Phone: noms External Department UnsolicitedStart: 04-17-2025 End: 64-73-0373Zmkivfsru Result EncounterCorey Davie DO Work Phone: no External Department UnsolicitedStart: 04-11-2025 End: 57-41-7401Qsissh flowsheetCorey Davie DO Work Phone: [facility] [place] [facility]Start: 04-11-2025 End: 45-30-3512Hhfmqi flowsheetCorey Davie DO Work Phone: [facility] [place] [facility]YNStart: 04-11-2025 End: 65-81-0211Wfxsjd outpatient visit 15 minutesCorey Davie DO Work Phone: [facility] [place] OBGYNComment on above:15 weeks gestation of ([facility]); Second trimester ([facility]); Acute nonintractable headache, unspecified headache type; BP check; Gestational hypertension, antepartum ([facility]); induced hypertension, antepartum ([facility])Start: 04-11-2025 End: 07-10-2600Yfuzcmn encounter statusCorey Davie DO Work Phone: NO HealthcareStart: 04-11-2025 End: 12-29-3770rviivgebsuNKYFP FAZIONot AvailableStart: 03-28-2025 End: 70-57-9893Adbtsu flowsheetCorey Davie DO Work Phone: [facility] [place] [facility]BGYNStart: 03-28-2025 End: 81-57-1988Cccmpr flowsheetCorey Davie DO Work Phone: no [place] [facility]BGYNStart: 03-28-2025 End: 76-52-7587Agqfln outpatient visit 15 minutesCorey Davie DO Work Phone: [facility] [place] [facility]BGYNComment on above:13 weeks gestation of ([facility]); Second trimester ([facility]); Acute nonintractable headache, unspecified headache typeStart: 03-28-2025 End: 39-55-0209kakybvwinrIEFYQ FAZIONot AvailableStart: 03-20-2025 End: 77-57-3342Fivmhlxbi Result EncounterCorey Davie DO Work Phone: noms External Department UnsolicitedStart: 03-20-2025 End: 19-23-7131Wbpynzbbv Result EncounterCorey Davie DO Work Phone: noms External Department UnsolicitedStart: 03-01-2025 End: 37-60-1123Uowjqf outpatient visit 5 minutesFazio Nurse Noms Bcp ObNOMS BCP OBStart: 03-01-2025 End: 51-07-3837yfbgzzlqhiOFEYR FAZIONot AvailableStart: 01-16-2025 End: 25-16-3582Rxyvjhwcr Result EncounterCorey Davie DO Work Phone: noms External Department UnsolicitedStart: 01-16-2025 End: 58-49-8675Kbggfmwfo Result EncounterCorey Davie DO Work Phone: noms External Department UnsolicitedStart: 01-03-2025 End: 37-89-6112Aziqyzh encounter procedureRobbie Lopez MD Work Phone: Steve JaneComment on above:Encounter for preprocedural laboratory examination (Primary Dx); Abnormal uterine bleedingStart: 01-03-2025 End: 14-57-9060Xrafqtv encounter statusRobbie Lopez MD Work Phone: [facility] Work Phone: Start: 01-03-2025 End: 05-83-9588ptrcilsqdoNIGHAD S [facility]: 01-03-2025 End: 38-54-2296Rsumeewyb for preprocedural laboratory examinationROBBIE Tapia [facility] Hospitaltart: 12-18-2024 End: 14-16-6873Pybupmck Result EncounterCorey Davie DO Work Phone: NOMS External Department UnsolicitedStart: 12-18-2024 End: 44-19-1347Heamusrr Result EncounterCorey Davie DO Work Phone: noMS External Department UnsolicitedStart: 12-18-2024 End: 66-11-3912Zwwoibv encounter procedureCorey Davie DO Work Phone: noms BCP OBComment on above:Skin moleStart: 12-18-2024 End: 54-97-5518ziaomkalzcTbxfm [facility]FiBar[facility] Work Phone: Start: 12-18-2024 End: 06-91-9176Tsoyibog ReferredCorey Davie DO Work Phone: [facility]-LAB Path Spec [facility] HospStart: 12-17-2024 End: 92-79-4770Izyeqiupi Result EncounterCorey Davie DO Work Phone: NOMS External Department UnsolicitedStart: 12-17-2024 End: 48-24-6505Buvyvebyz Result EncounterCorey Davie DO Work Phone: noms External Department UnsolicitedStart: 12-10-2024 End: 43-50-7397Axxotrn encounter procedureCorey Davie DO Work Phone: noms HealthcareStart: 12-10-2024 End: 28-63-1737Gvhftonq preventive med est patient 18-39 yrsCorey Davie DO Work Phone: NOMS BCP OBComment on above:Well woman exam with routine gynecological examStart: 12-10-2024 End: 52-28-7936yhqkljbtmjQNYQU FAZIONot AvailableStart: 12-10-2024 End: 76-94-2584Smrahv flowsheetCorey Davie DO Work Phone: NOMS BCP OBStart: 12-10-2024 End: 87-86-2929Eeqsgx flowsheetCorey Davie DO Work Phone: NOMS BCP OBStart: 12-10-2024 End: 48-62-5240Jewjfbkbs Result EncounterCorey Davie DO Work Phone: noms External Department UnsolicitedStart: 11-16-2024 End: 99-34-6642Lqwbfyfrv Result EncounterCorey Davie DO Work Phone: noms External Department UnsolicitedStart: 11-16-2024 End: 94-38-2997Htrdkogff Result EncounterCorey Davie DO Work Phone: NOMS External Department UnsolicitedStart: 11-12-2024 End: 13-89-0254Wunosu outpatient visit 15 minutesCorey Davie DO Work Phone: noMS [facility] OBComment on above:Encounter for fertility planning; Acute cystitis without hematuria; PCOS (polycystic ovarian syndrome); Fallopian tube disorderStart: 11-12-2024 End: 85-06-1515Skrnhx flowsheetCorey Davie DO Work Phone: NOMS BCP OBStart: 11-12-2024 End: 02-55-7443Mpyzdr flowsheetCorey Davie DO Work Phone: noms [facility] OBStart: 11-12-2024 End: 88-68-4607eyuvkiztrnMHPDA FAZIONot AvailableStart: 11-03-2024 End: 51-29-2534Eeszfwlvx department patient visitCOMMUNBERGER H[facility] HospitalStart: 10-18-2024 End: 10-41-5897Kkpbcqnyg Result EncounterCorey Davie DO Work Phone: noms External Department UnsolicitedStart: 10-18-2024 End: 20-91-0304Dlpoovfjy Result EncounterCorey Davie DO Work Phone: noms External Department UnsolicitedStart: 09-17-2024 End: 09-87-1478Dsescxvrx Result EncounterCorey Davie DO Work Phone: noms External Department UnsolicitedStart: 09-17-2024 End: 35-55-9753Immnfyozk Result EncounterCorey Davie DO Work Phone: noms External Department UnsolicitedStart: 08-16-2024 End: 83-74-8501Guophotll Result EncounterCorey Daive DO Work Phone: noms External Department UnsolicitedStart: 08-16-2024 End: 09-83-4930Vufzmcegv Result EncounterCorey Davie DO Work Phone: noms External Department UnsolicitedStart: 07-23-2024 End: 44-10-8531Flbpwq flowsheetCorey Davie DO Work Phone: noms BCP OBStart: 07-23-2024 End: 41-13-2672Flnbii flowsheetCorey Davie DO Work Phone: NOHW BCP OBStart: 07-23-2024 End: 81-36-5833hflipfhbppJAQFO FAZIONot AvailableStart: 07-23-2024 End: 15-04-3709Fbakrh outpatient visit 15 minutesCorey Davie DO Work Phone: noms [facility] OBComment on above:PCOS (polycystic ovarian syndrome); Encounter for fertility planningStart: 07-18-2024 End: 59-55-1647Alfrmpyir Result EncounterCorey Davie DO Work Phone: noms External Department UnsolicitedStart: 07-18-2024 End: 32-74-0956Etbnsigqo Result EncounterCorey Davie DO Work Phone: NOAQ External Department UnsolicitedStart: 06-11-2024 End: 81-68-1413Rcjkev follow up visit related to original pxCorey Davie DO Work Phone: NOSM [facility] OBComment on above:Postoperative visit; S/P laparoscopic procedureStart: 06-11-2024 End: 22-82-5754Caofmq flowsheetCorey Davie DO Work Phone: noms BCP OBStart: 06-11-2024 End: 50-47-3688Indiat flowsheetCorey Davie DO Work Phone: NOKI BCP OBStart: 06-01-2024 End: 03-90-0455Yhpuanfrj Result EncounterCorey Davie DO Work Phone: NOUW External Department UnsolicitedStart: 06-01-2024 End: 02-40-9484Qhvezurpw Result EncounterCorey Davie DO Work Phone: NOMS External Department UnsolicitedStart: 05-03-2024 End: 05-26-7702Wlytvc outpatient visit 15 minutesCorey Davie DO Work Phone: NOTR [facility] OBComment on above:Pre-op examination; Pelvic pain in female; Fallopian tube disorderStart: 05-03-2024 End: 99-38-8820Fxgimggtgnbit examination doneCorey Davie DO Work Phone: NOMS HealthcareStart: 04-25-2024 End: 84-73-6129Sopiaqfvz Result EncounterCorey Davie DO Work Phone: noms External Department UnsolicitedStart: 04-25-2024 End: 72-89-7752Nydikczva Result EncounterCorey Davie DO Work Phone: NOBF External Department UnsolicitedStart: 04-24-2024 End: 56-54-0169Mnyevmriq Result EncounterCorey Davie DO Work Phone: noms External Department UnsolicitedStart: 04-24-2024 End: 89-38-6632Kbuyxbokx Result EncounterCorey Davie DO Work Phone: NOGH External Department UnsolicitedStart: 04-10-2024 End: 43-16-9739Fqktcw flowsheetCorey Davie DO Work Phone: NOMS BCP OBStart: 04-10-2024 End: 20-46-5023Qzxxts flowsheetCorey Davie DO Work Phone: NOMS BCP OBStart: 04-10-2024 End: 53-20-6488Qgdcew outpatient visit 15 minutesCorey Davie DO Work Phone: [facility] OBComment on above:Encounter for fertility planning; PCOS (polycystic ovarian syndrome); Pelvic pain in female; Abnormal uterine bleeding (AUB)Start: 03-13-2024 End: 85-92-4857Cltrug outpatient visit 15 minutesJames Fraire MD Work Phone: [facility] CardiologyComment on above:Heart palpitations (Primary Dx)Start: 03-12-2024 End: 13-44-3400Rwjboqzlv encounterJennshayne Powell [facility]ITALPro[facility]ica Physicians CardiologyStart: 02-22-2024 End: 87-70-4980Xtvfi abstractingScanning Provider ExternalProMedica Physicians CardiologyStart: 11-24-2023 End: 01-35-0642tlocffspdpMeelqoolk [facility] Work Phone: Start: 11-24-2023 End: 86-19-6502Vplvgax encounter procedureAmerican Healthcare Systems [facility] Work Phone: Start: 10-11-2022 End: 30-57-1319rbpzvytbpcYucvyx Dymond Other [facility] [employer] Other Start: 89-76-2182Zhtsio outpatient new 20 minutes Pinky SinghFPG Urgent [facility] Procedures DateProcedureProcedure DetailPerforming ClinicianStart: 51-62-3422Rqlnk dip stick/tablet rgnt non-auto w/o micrscpCorey Davie DO Work Phone: Start: 08-23-3780Gcvbp dip stick/tablet rgnt non-auto w/o micrscpKristina Uyen PRICE ACCURACY SUPERVISOR Work Phone: Start: 20-07-1810Jcfjr dip stick/tablet rgnt non-auto w/o micrscpKristina Uyen PRICE ACCURACY SUPERVISOR Work Phone: Start: 39-15-1745QXV, SERUM, OPEN SPINA BIFIDACorey Davie DO Work Phone: Start: 34-52-3807Lzrnb dip stick/tablet rgnt non-auto w/o micrscpCorey Davie DO Work Phone: Start: 41-87-5883BKX TOTAL PROTEIN 24 HOUR URINECorey Davie DO Work Phone: Start: 77-27-5451Klhvs count complete automatedNot In System Ref ProvStart: 27-62-3952THW CBC WITH AUTO DIFFCorey Davie DO Work Phone: Start: 91-20-6405Wpqrd dip stick/tablet rgnt non-auto w/o micrscpCorey Davie DO Work Phone: Start: 69-46-9657Vgeqg dip stick/tablet rgnt non-auto w/o micrscpCorey Davie DO Work Phone: Start: 53-63-2733Hiapezyf Cathi Cruz MD Work Phone: Start: 03-03-5306Qjjz scrn 1+ class nonchromoNot In System Ref ProvStart: 80-77-4593Lzxolhzcfp glycosylated z0sVvisiwfa Provider ExternalStart: 13-91-1442Esccyqkjy c antibodyNot In System Ref ProvStart: 92-82-7129ISA 1&2 AB/AG SCREEN (P24 AG)Not In System Ref ProvStart: 03-20-2025 Iaad ia hepatitis b surface antigenNot In System Ref ProvStart: 03-20-2025 SYPHILIS TOTAL(UNKNOWN SYPHILIS STATUS)Not In System Ref ProvStart: 03-20-2025 TYPE AND SCREENNot In System Ref ProvStart: 75-09-0267HND CBC WITH AUTO DIFF Caesar Davie DO Work Phone: Start: 03-01-2025 End: 84-00-8075Lzusz dip stick/tablet rgnt non-auto w/o micrscpCorey Davie DO Work Phone: Start: 88-17-9858KZO PROGESTERONECorey Davie DO Work Phone: Start: 27-71-4667KXGJUXMMW REQUEST FOR LAB CORPCorey Davie DO Work Phone: Start: 52-73-1379GBA PROGESTERONECorey Davie DO Work Phone: Start: 86-65-0305HVO,APTIMA HPV,AGE GDLNCorey InSightec DO Work Phone: Start: 93-25-5851Aclmgyjdolq observation [Identifier] in Cervix by Cyto stainCorey Davie DO Work Phone: Start: 99-20-4630LLC PROGESTERONECorey Davie DO Work Phone: Start: 67-09-3472PQC PROGESTERONECorey InSightec DO Work Phone: Start: 73-72-8521KDM PROGESTERONECorey Davie DO Work Phone: Start: 12-85-2239WFO PROGESTERONECorey Davie DO Work Phone: Start: 16-80-2954MLL PROGESTERONECorey Davie DO Work Phone: Start: 91-67-6286KDL CBC WITH AUTO DIFFCorey InSightec DO Work Phone: Start: 05-07-8315NF PELVIS W/ TRANSVAGINALCorey Davie DO Work Phone: Start: 15-42-9237YTD CBC WITH AUTO DIFFCorey InSightec DO Work Phone: Start: 35-64-2759Rwn routine ecg w/least 12 lds w/i&r Jamse Fraire MD Work Phone: Start: 77-01-7790Mwaty Strep (POC)Start: 11-23-2022 Microscopic observation [Identifier] in Cervix by Cyto stainScanning External Start: 85-98-7387Ofjkxzoerky observation [Identifier] in Cervix by Cyto stain Caesar InSightec DO Work Phone: Start: 07-30-9312Jowp cerv/vag auto thin layer prep mnl screenAmy Zackary [employer]CTIONAL TESTER TYPEWRIT[employer] Work Phone: Plan of Treatment DateCare ActivityDetailAuthorStart: 07-17-4428Nszpla Vaccines (1 of 2)Zoster Vaccines (1 of 2)[facility] HospitalStart: 11-74-6790Znhxiifug for malignant neoplasm of cervixNOMS HealthcareStart: 70-57-0727Kpfmcxlpp for malignant neoplasm of cervixNOMS HealthcareStart: 16-32-8368Afnko BMI Screening Adult BMI ScreeningChillicothe VA Medical Center SystemStart: 71-34-4997Hqeqpzh Screening Tobacco ScreeningAtrium Healthtart: 12-16-2025 End: 86-00-5216Pfyjsnl encounter procedureNOMS BCP OBStart: 96-33-1345Mucyccutu for malignant neoplasm of cervixPap SmearChillicothe VA Medical Center SystemStart: 78-19-2376Qlssmtbxv for malignant neoplasm of cervixPap SmearNOCT Healthcare Start: 17-08-2298Nmxeamw ScreeningTobacco ScreeningChillicothe VA Medical Center SystemStart: 07-09-2025 End: 32-10-7353Rjxisoq encounter yfpdcuokl05/18/2025 1:20 PM EST Routine LIANA HEAD [address] [place], [id number] Bethany Simon PA [address] [place] [address] LIANA LAWSONGYNStart: 06-24-2025 End: 34-74-1443IRG panel - Blood by Automated countCBC Lab Routine Diabetes mellitus screening Expected: 06/24/2025 (Approximate), Expires: 06/24/2026NOSt[facility] Work Phone: comment on above:Expected: 06/24/2025 (Approximate), Expires: 06/24/2026Start: 06-24-2025 End: 52-26-4197Itsqvdifmmw of glucose 1 hour after glucose challenge for glucose tolerance testGlucose tolerance, 1 hour Lab Routine Diabetes mellitus screening Expected: 06/24/2025 (Approximate), Expires: 06/24/2026NOCT HealthcareComment on above:Expected: 06/24/2025 (Approximate), Expires: 06/24/2026Start: 06-24-2025 End: 94-15-6946OY biophysical profile w non stress testUS biophysical profile w non stress test Imaging Routine 25 weeks gestation of ([facility]) H/O pre-eclampsia in prior , currently ([facility]) Chronic hypertension affecting ([facility]) Expected: 06/24/2025 (Approximate), Expires: 12/22/2025NOMS HealthcareComment on above: Expected: 06/24/2025 (Approximate), Expires: 12/22/2025Start: 06-24-2025 End: 53-10-0254PP for pregnancyUS OB follow up transabdominal approach Imaging Routine H/O pre-eclampsia in prior , currently ([facility]) Chronic hypertension affecting ([facility]) Expected: 06/24/2025, Expi res: 10/22/2025NOCT HealthcareComment on above:Expected: 06/24/2025, Expires: 10/22/2025Start: 06-24-2025 End: 85-83-1892Feikrid encounter procedureNOMS Aman OBGYNComment on above: ArrivedStart: 06-18-2025 End: 42-78-7120Ummceextjwdq consultation with qnwmgcy3506/18/2025 2:00 PM EDT Telemedicine Maternal- Medicine at [facility] [address] [place] [phone] Yordy Cruz MD [address] [place] [address] [facility]: 06-18-2025 End: 63-25-1066Cwanbpg encounter yvjjxlwae56/28/2025 8:00 AM EDT Appointment [facility] - Ultrasound [address] [place] [phone] [phone] [facility] - UltrasoundStart: 06-05-2025 End: 53-70-2879Vegbgzz encounter procedureNOMS [place] OBGYNComment on above: ArrivedStart: 05-30-2025 End: 53-07-2432Qqcdosr encounter procedureNOMS Aman OBGYNComment on above: ArrivedStart: 05-25-2025 End: 92-72-1117Rdenj fetoprotein, maternalAlpha fetoprotein, maternal Lab Routine Need for maternal serum alpha-protein (MSAFP) screening ([facility]) Expected: 05/25/2025 (Approximate), Expires: 05/25/2025NOMS HealthcareComment on above:Expected: 05/25/2025 (Approximate), Expires: 05/25/2025Start: 05-23-2025 End: 27-51-9820Cxsktoa encounter txeknqirx38/02/2025 2:30 PM EDT Routine LIANA HEAD [address] [place], [id number] Rody Qiu, PRICE ACCURACY SUPERVISOR [address] [place] [phone] LIANA LAWSONGYNStart: 05-20-2025 End: 86-87-4027EI MFM with or without consultUS MFM with or without consult Imaging Routine Hypertension affecting in second trimesterExpected: 05/20/2025 (Approximate), Expires: 04/19/2026[facility] Work Phone: comment on above:Expected: 05/20/2025 (Approximate), Expires: 04/19/2026Start: 05-17-2025 End: 33-93-7733GL MFM with or without consultUS MFM with or without consult Imaging Routine 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 Severe obesity due to excess calories affecting , antepartum ([facility]) Hypertension affecting in second trimester Expected: 05/17/2025, Expires: 05/17/2026[facility] Work Phone: Comment on above:Expected: 05/17/2025, Expires: 05/17/2026Start: 05-17-2025 End: 55-24-1084Yhsypxp encounter procedureProSelect Medical [facility] US ImagingStart: 04-25-2025 End: 81-25-9807Ulizqkb encounter procedureNOChilton [facility] Hospital OBGYNComment on above: ArrivedStart: 08-13-0170BLTUF-19 Vaccine ( season)COVID-19 Vaccine ()NOMS HealthcareStart: 85-70-3657Pzxlzvxxb vaccinationNOMS HealthcareStart: 04-11-2025 End: 41-61-0864Trwasao aminotransferase [Enzymatic activity/volume] in Serum or PlasmaALT Lab Routine Gestational hypertension, antepartum ([facility]) induced hypertension, antepartum ([facility]-H[facility]) Expected: 04/11/2025 (Approximate), Expires: 04/11/2026NOCT HealthcareComment on above:Expected: 04/11/2025 (Approximate), Expires: 04/11/2026Start: 04-11-2025 End: 72-37-4951Ncyffatbc aminotransferase [Enzymatic activity/volume] in Serum or PlasmaAST Lab Routine Gestational hypertension, antepartum ([facility]-HCC) induced hypertension, antepartum ([facility]-HCC) Expected: 04/11/2025 (Approximate), Expires: 04/11/2026NOCT HealthcareComment on above:Expected: 04/11/2025 (Approximate), Expires: 04/11/2026Start: 04-11-2025 End: 27-46-4209DRE W Auto Differential panel - BloodCBC and differential Lab Routine Gestational hypertension, antepartum ([facility]-HCC) induced hy pertension, antepartum ([facility]-HCC) Expected: 04/11/2025 (Approximate), Expires: 04/11/2026[facility] HealthcareComment on above:Expected: 04/11/2025 (Approximate), Expires: 04/11/2026Start: 04-11-2025 End: 12-43-5324Rgwefnjwvh [Mass/volume] in Serum or PlasmaCreatinine Lab Routine Gestational hypertension, antepartum ([facility]HS-HCC) induced hypertension, antepartum ([facility]-HCC) Expected: 04/11/2025 (Approximate), Expires: 04/11/2026[facility] [employer] Work Phone: comment on above:Expected: 04/11/2025 (Approximate), Expires: 04/11/2026Start: 04-11-2025 End: 33-11-9898Rthzssd dehydrogenase [Enzymatic activity/volume] in Serum or Plasma by Lactate to pyruvate reactionLactate dehydrogenase Lab Routine Gestational hypertension, antepartum ([facility]HS-HCC) induced hypertension, antepartum ([facility]-HCC) Expected: 04/11/2025, Expires: 04/11/2026[facility] Comment on above:Expected: 04/11/2025, Expires: 04/11/2026Start: 04-11-2025 End: 67-58-9363Fqmhoqd, urine, 24 hourProtein, urine, 24 hour Lab Routine Gestational hypertension, antepartum (HHS-HCC) induced hypertension, antepartum ([facility]HS-HCC) Expected: 04/11/2025 (Approximate), Expires: 04/11/2026[facility] HealthcareComment on above:Expected: 04/11/2025 (Approximate), Expires: 04/11/2026Start: 04-11-2025 End: 86-81-3737Ou and pttPt and ptt Lab Routine Gestational hypertension, antepartum ([facility]HS-HCC) induced hypertension, antepartum ([facility]-HCC) Expected: 04/11/2025, Expires: 04/11/2026[facility] HealthcareComment on above: Expected: 04/11/2025, Expires: 04/11/2026Start: 04-11-2025 End: 87-64-0529Octlp [Mass/volume] in Serum or PlasmaUric acid Lab Routine Gestational hypertension, antepartum (HHS-HCC) induced hypertension, antepartum ([facility]HS-HCC) Expected: 04/11/2025 (Approximate), Expires: 04/11/2026[facility] HealthcareComment on above:Expected: 04/11/2025 (Approximate), Expires: 04/11/2026Start: 04-11-2025 End: 60-14-7532Bsnj nitrogen [Mass/volume] in Serum or PlasmaBUN Lab Routine Gestational hypertension, antepartum ([facility]HS-HCC) induced hypertension, antepartum ([facility]) Expected: 04/11/2025, Expires: 04/11/2026[facility] Healthcare Comment on above:Expected: 04/11/2025, Expires: 04/11/2026Start: 04-11-2025 End: 60-20-0325Erzoysk encounter procedureNOMS Aman OBGYNComment on above: ArrivedStart: 03-28-2025 End: 87-42-8495Qngswwi encounter procedureNOMS BCP OBComment on above:Arrived Start: 38-05-1110Wlaej BMI ScreeningAdult BMI ScreeningChillicothe VA Medical Center System Start: 82-18-4338Nugdkly ScreeningTobacco ScreeningAtrium Healthtart: 03-01-2025 End: 51-53-5402ZYX/RhABO/Rh Lab Routine Missed menses , unspecified gestational age ([facility]) Expected: 03/01/2025 (Approximate), Expires: 03/01/2026NOCT HealthcareComment on above:Expected: 03/01/2025 (Approximate), Expires: 03/01/2026Start: 03-01-2025 End: 21-51-9240Eswpx type and Indirect antibody screen panel - BloodType and screen Lab Routine Missed menses , unspecified gestational age ([facility]) Expected: 03/01/2025 (Approximate), Expires: 03/01/2026[facility] Healthcare Work Phone: comment on above:Expected: 03/01/2025 (Approximate), Expires: 03/01/2026Start: 03-01-2025 End: 67-08-6599Ojmjb of abuse panel - Urine by Screen methodRapid drug screen, urine Lab Routine , unspecified gestational age ([facility]) Encounter for supervision of normal first in first trimester ([facility]) Expected: 03/01/2025 (Approximate), Expires: 03/01/2026[facility] HealthcareComment on above: Expected: 03/01/2025 (Approximate), Expires: 03/01/2026Start: 02-03-2025 End: 04-93-4665Gyawrmxqlvojgupddf ( test) [Presence] in UrinePOCT , urine manually resulted Point of Care Testing Routine Encounter for preprocedural laboratory examination Expected: 02/03/2025 (Approximate), Expires: 04/05/2025[facility] Work Phone: Comment on above:Expected: 02/03/2025 (Approximate), Expires: 04/05/2025Start: 02-03-2025 End: 80-67-1349AuhptfpucopvnvwRenwynhoyajrybd Procedures Routine Abnormal uterine bleeding Expected: 02/03/2025 (Approximate), Expires: 01/03/2026[facility] Service Area Work Phone: Comment on above:Expected: 02/03/2025 (Approximate), Expires: 01/03/2026Start: 02-03-2025 End: 05-27-2215ED.doppler Uterus and Fallopian tubes W saline IUUS sonohysterogram Imaging Routine Abnormal uterine bleeding Expected: 02/03/2025 (Approximate), Expires: 01/03/2026[facility] Work Phone: Comment on above:Expected: 02/03/2025 (Approximate), Expires: 01/03/2026Start: 12-18-2024 End: 12-06-2863Hehmrsg encounter calkdfyfl54/29/2025 1:30 PM EDT Procedure Visit [facility] [address] [phone] Caesar Broderick, DO [address] [place] [address] N[facility] BCP OBStart: 43-93-8681MlrqmztweHocking Valley Community Hospitaltart: 12-10-2024 End: 88-26-6032Knirvov encounter procedureNOMS BCP OBComment on above:Arrived Start: 11-12-2024 End: 60-64-8765Dkufrxn encounter procedureNOMS BCP OBComment on above:Arrived Start: 07-23-2024 End: 86-49-3261Zsvniwe encounter zizhadkdu53/02/2024 1:00 PM EST Office Visit [facility] [address] [place] [address] Caesar Broderick, DO [address] [place] [address] [place] [address] [facility] BCP OBStart: 06-11-2024 End: 80-80-4691Qomdssp encounter /21/2024 2:20 PM EDT Office Visit [facility] [address] [place] [phone] Caesar Broderick, DO [address] [place] [address] [place] [address] ArrivedNOMS BCP OBComment on above:ArrivedStart: 06-01-2024 End: 86-07-5565Hackhta encounter dfekaamuj61/11/2024 8:30 AM EDT Procedure Visit [facility] EXT DEP Caesar Broderick, DO [address] [place] [address] [place] [address] NOMS EXT DEPStart: 05-03-2024 End: 90-35-0541Jhyqsqw encounter dgowjmylt49/12/2024 11:40 AM EDT Consult [facility] [address] [place] [phone] Caesar Broderick, DO [address] [place] [address] [place] [address] [facility]S BCP OBStart: 80-33-7749MWRJQ-19 Vaccine ( season)COVID-19 Vaccine ( season)[facility] Start: 76-30-5327Kfjnbklct vaccinationNOCT HealthcareStart: 04-10-2024 End: 11-20-4669Mxfwjydickkdu hormone ([facility])Antimullerian hormone ([facility]) Lab Routine PCOS (polycystic ovarian syndrome) Expected: 04/10/2024 (Approximate), Expires: 04/10/2025N[facility] HealthcareComment on above:Expected: 04/10/2024 (Approximate), Expires: 04/10/2025Start: 04-10-2024 End: 70-80-0935ARGCNGGB Lab Routine PCOS (polycystic ovarian syndrome) Expected: 04/10/2024 (Approximate), Expires: 04/10/2025N[facility] HealthcareComment on above: Expected: 04/10/2024 (Approximate), Expires: 04/10/2025Start: 04-10-2024 End: 89-40-0114YU for pregnancyUS PELVIS-TRANSVAG IF INDICATED Imaging Routine PCOS (polycystic ovarian syndrome) Pelvic pain in female Expected: 04/10/2024 (Approximate), Expires: 04/10/2025NO HealthcareComment on above:Expected: 04/10/2024 (Approximate), Expires: 04/10/2025Start: 04-10-2024 End: 73-65-5820Tokjmef encounter llvkothqh71/20/2024 9:10 AM EDT Office Visit [facility] [address] [place] [address] Caesar Broderick, [address] [place] [address] [facility] OBComment on above:ArrivedStart: 03-13-2024 End: 71-28-1650Lqpbfkg encounter okcsaipns59/23/2024 11:00 AM EDT Office Visit [facility] [address] [place] [id number] James Fraire MD [address] [place] [facility] [place], [id number] [facility] CardiologyStart: 97-79-3359Mnrdo BMI ScreeningAdult BMI ScreeningProMercy Health Willard Hospitalca Health SystemStart: 69-21-3549Ifoowht ScreeningTobacco ScreeningProMercy Health Willard Hospitalca [facility] SystemStart: 59-95-9024IPY Vaccines (1 - 3-dose SCDM series)HPV Vaccines (1 - 3-dose SCDM series)[facility] HospitalStart: 09-37-6989ZLwS/Tdap/Td Vaccines (1 - Tdap)DTaP/Tdap/Td Vaccines (1 - Tdap)[facility]: 69-01-6763Kebdtrnmo for malignant neoplasm of cervixHPV/CotestUnParkview Health: 27-80-7396VMmT,Tdap and Td Vaccines (1 - Tdap) DTaP,Tdap and Td Vaccines (1 - Tdap)[facility] SystemStart: 2011 Hepatitis B Vaccines (1 of 3 - 19+ 3-dose series)Hepatitis B Vaccines (1 of 3 - 19+ 3-dose series)[facility]: 98-50-0417Aekgs BMI Follow Up PlanAdult BMI Follow Up PlanAtrium Healthtart: 2010 Hepatitis C screeningHepatitis C ScreeningSheltering Arms Hospital Start: 36-04-2275Laxvjzi of varicella vaccinationVaricella Vaccines (1 of 2 - 13+ 2-dose series)[facility] HealthcareStart: 40-28-2323Dcbxjxmoz vaccinationVaricella Vaccines (1 of 2 - 13+ 2-dose series)[facility]: 52-30-2356Hanikvyexx ScreeningDepression ScreeningProLouis Stokes Cleveland VA Medical Centertart: 77-46-9981DTlU/Tdap/Td Vaccines (1 - Tdap)DTaP/Tdap/Td Vaccines (1 - Tdap)[facility] HospitalStart: 63-93-8523SBK Vaccines (1 of 1 - Standard series)MMR Vaccines (1 of 1 - Standard series)[facility]: 54-33-6923SVK screeningHIV ScreeningUnParkview Health: 90-98-5523Benin panelLipid PanelBrecksville VA / [facility]: 10-66-1883Plhtii Adult PhysicalYearly Adult PhysicalUnProMedica Flower HospitalBacteria identified in Urine by CultureUrine culture Microbiology Routine Missed menses Ordered: 03/01/2025[facility] HealthcareComment on above:Ordered: 5CBC W Auto Differential panel - BloodCBC and differential Lab Routine PCOS (polycystic ovarian syndrome) Ordered: 04/10/2024[facility] HealthcareComment on above:Ordered: 04/10/2024BC W Auto Differential panel - BloodCBC and differential Lab Routine Missed menses , unspecified gestational age ([facility]) Ordered: 03/01/2025[facility] HealthcareComment on above:Ordered: 03/01/2025HLAMYDIA TRACHOMATIS (GENITO/STI)CHLAMYDIA TRACHOMATIS (GENITO/STI) Lab Routine Screen for STD (sexually transmitted disease) Ordered: 04/25/2025[facility] HealthcareComment on above:Ordered: 04/25/2025 End: 82-71-4513Hnnfoedilt, urine, 24 hourCreatinine, urine, 24 hour Lab Routine Chronic hypertension affecting 20 weeks gestation of 1 Occurrences starting 05/17/2025 until 05/17/2026ProCho[facility] Health SystemComment on above:1 Occurrences starting 05/17/2025 until 05/17/2026ytology Cervical or vaginal smear or scraping studyPap Smear Pathology and Cytology Routine Well woman exam with routine gynecological exam Ordered: 12/10/2024[facility] Healthcare Work Phone: comment on above:Ordered: 12/10/2024DHEA-sulfateDHEA- sulfate Lab Routine PCOS (polycystic ovarian syndrome) Ordered: 04/10/2024[facility] HealthcareComment on above:Ordered: 04/10/2024Follicle stimulating hormone Follicle stimulating hormone Lab Routine PCOS (polycystic ovarian syndrome) Ordered: 04/10/2024[facility] HealthcareComment on above:Ordered: 04/10/2024hCG, quantitative, pregnancyhCG, quantitative, Lab Routine PCOS (polycystic ovarian syndrome) Ordered: 04/10/2024[facility] Healthcare Work Phone: comment on above:Ordered: 04/10/2024Hemoglobin A1c/Hemoglobin.total in BloodHemoglobin A1c Lab Routine Pelvic pain in female Abnormal uterine bleeding (AUB) Ordered: 04/10/2024[facility] HealthcareComment on above:Ordered: 04/10/2024Hemoglobin A1c/Hemoglobin.total in BloodHemoglobin A1c Lab Routine Missed menses , unspecified gestational age ([facility]) Ordered: 03/01/2025[facility] HealthcareComment on above:Ordered: 03/01/2025Hepatitis B virus surface Ag [Presence] in Serum or Plasma by ImmunoassayHepatitis B surface antigen Lab Routine Missed menses , unspecified gestational age ([facility]) Ordered: 03/01/2025[facility] HealthcareComment on above:Ordered: 03/01/2025Hepatitis C virus Ab [Presence] in Serum or Plasma by Immunoassay Hepatitis C antibody Lab Routine Missed menses , unspecified gestational age ([facility]) Ordered: 03/01/2025[facility] HealthcareComment on above: Ordered: 03/01/2025HIV-1/HIV-2 antigen/antibody combination immunoassayHIV-1 and HIV-2 antibodies Lab Routine Missed menses , unspecified gestational age ([facility]) Ordered: 03/01/2025[facility] HealthcareComment on above:Ordered: 03/01/2025Human papilloma virus DNA [Presence] in Unspecified specimen by Probe with amplificationHPV DNA probe, amplified Microbiology Routine Well woman exam with routine gynecological exam Ordered: 12/10/2024[facility] HealthcareComment on above:Ordered: 12/10/2024Luteinizing hormoneLuteinizing hormone Lab Routine PCOS (polycystic ovarian syndrome) Ordered: 04/10/2024[facility] HealthcareComment on above:Ordered: 04/10/2024 End: 13-75-8161Eelsuogxkpa peptide B [Mass/volume] in BloodB-type natriuretic peptide Lab Routine Chronic hypertension affecting 20 weeks gestation of 1 Occurrences starting 05/17/2025 until 05/17/2026[facility] Work Phone: Comment on above:1 Occurrences starting 05/17/2025 until 05/17/2026Natriuretic peptide B [Mass/volume] in BloodB-type natriuretic peptide Lab Routine Chronic hypertension affecting 20 weeks gestation of 05/17/2025 9:54 AM [facility] HospitalNeisseria gonorrhoeae DNA [Presence] in Unspecified specimen by PEACE with probe detectionNeisseria gonorrhea DNA probe, direct Lab Routine Screen for STD (sexually transmitted disease) Ordered: 04/25/2025[facility] HealthcareComment on above:Ordered: 04/25/2025 End: 71-43-8274Dlaulwb, urine, 24 hourProtein, urine, 24 hour Lab Routine Chronic hypertension affecting 20 weeks gestation of 1 Occurrences starting 05/17/2025 until 05/17/2026[facility] SystemComment on above:1 Occurrences starting 05/17/2025 until 05/17/2026Reagin Ab [Presence] in Serum by RPRRPR Lab Routine Missed menses , unspecified gestational age ([facility]) Ordered: 03/01/2025[facility] HospitalComment on above:Ordered: 03/01/2025Rubella antibody, IgGRubella antibody, IgG Lab Routine Missed menses , unspecified gestational age ([facility]) Ordered: 03/01/2025[facility] HealthcareComment on above:Ordered: 03/01/2025SURESWAB(R) ADVANCED VAGINITIS PLUS, TMASURESWAB(R) ADVANCED VAGINITIS PLUS, TMA Pathology and Cytology Routine Screen for STD (sexually transmitted disease) Ordered: 04/25/2025[facility] Work Phone: comment on above:Ordered: 04/25/2025Thyrotropin [Units/volume] in Serum or PlasmaTSH Lab Routine PCOS (polycystic ovarian syndrome) Ordered: 04/10/2024[facility] HospitalComment on above:Ordered: 04/10/2024 Thyroxine (T4) free [Mass/volume] in Serum or PlasmaT4, free Lab Routine PCOS (polycystic ovarian syndrome) Ordered: 04/10/2024[facility] HospitalComment on above:Ordered: 04/10/2024 Payers DatePayer CategoryPayerPolunitypoint health-[facility] [id number]-pay2023Medicaid [id number] [id number] 2..[id number] 2.0.1.603975.3.57[id number] 2.0.1.906358.3.579.2.822886-50-0648Xkaqwrs [id number] 2.0.1.639017.3.57[id number] 2.16840.1.742428.3.57[id number] 2.16840.1.951865.3.57[id number] 2.16840.1.275773.3.57[id number] 2.16840.1.777027.3.57[id number] 2..1.542889.3.57[id number] 2..1.905019.3.57[id number] 2.0.1.381927.3.57[id number] 2..1.262448.3.57[id number] 2..1.191524.3.57[id number] 2..1.758714.3.57[id number] 2.840.1.429572.3.57[id number] 2.0.1.189274.3.57[id number] 2.16840.1.808106.3.57[id number] 2.840.1.038154.3.57[id number] 2.16.840.1.132276.3.57[id number] 2.16.840.1.499380.3.57[id number] 2.16.840.1.74[id number] 2.16.840.1.977495.3.579.2.531 Social History DateTypeDetailFacilityStart: 02-22-2024 End: 16-54-6054K[facility] Other Start: 27-09-2397Vvy Assigned At [facility] HospitalTobacco smoking status NHISTobacco smoking consumption unknownNOCT HealthcareStart: 33-58-3343Hzn assigned at birthNot on fileProChoctaw General Hospital Smarter Pockets SystemStart: 10-09-2022 End: 48-65-8227Kaiqsmt smoking status NHISNever smoked tobaccoProChoctaw General Hospital Smarter Pockets SystemStart: 10-09-2022 End: 90-92-6790Brmfeos use and exposureSmokeless tobacco non-userProChoctaw General Hospital Smarter Pockets SystemStart: 02-22-2024 End: 78-33-7104Pdljyjsnk beverage intakeEx-drinker (finding)[facility] SystemStart: 02-22-2024 End: 45-48-7237Zneayio of Social functionProMediUpper Valley Medical Center SystemStart: 51-43-7244Rxkbta the past 12 months we worried whether our food would run out before we got money to buy more.Never TrueProMercy Health Willard HospitalWizpert SystemStart: 09-30-2022 End: 49-03-9569MoaHutgtv (finding)[facility] Hospitaltart: 30-77-7335Tqdjnwclg beverage intakeLifetime non-drinker (finding)[facility] Work Phone: Start: 12-24-2024 End: 08-14-2018Qrdgfgic to SARS-CoV-2 (event)Not sureUnProMedica Flower HospitalStart: 59-27-6796HlpcnqwpqTXPI Healthcare Functional Status WyjoBdgsnrqmzpJapjjuGkqqnntx34-18-0650Ijmyfxc Health Questionnaire 2 item (PHQ- 2) [Reported][facility]'s HospitalEjlytvdmgy82-20-4625Wuggvzr Health Questionnaire 2 item (PHQ- 2) [Reported][facility] Work Phone: [phone]hphyv - suicide severity rating scale screener - recent [C-SSRS][facility] Work Phone: Clinical Notes 10-11-2022 to 06-24-2025 Note Date & RnwwQqhvLiaetsrm77-87-3002 History of Present illness Narrative* Karoline Casillas, SHAD - 06/24/2025 1:50 PM EST Reason for [...] (polycystic ovarian syndrome) 07/30/2024 induced hypertension, antepartum ([facility]) 04/25/2025 Vitamin D deficiency 05/23/2025 H/O pre-eclampsia in prior , currently ([facility]) 05/23/2025 Resolved Ambulatory Problems Diagnosis Date [...] nursing note reviewed. Exam conducted with a dinkey brakeman present. Vitals: Estimated body mass index is 43.33 kg/m as calculated from the following: Height as of 06/11/24: 5' 8 . Weight as of this encounter: 285 lb. BP: 150/86 Patient's last menstrual period was 12/26/2024. Assessment/Plan ICD-10-CM 1. Second trimester ([facility]) Z34.92 POCT urinalysis dipstick manually resulted 2. 25 weeks gestation of ([facility]) Z3A.25 labetalol (Normodyne) 100 MG tablet 3. H/O pre-eclampsia in prior , currently ([facility]) O09.299 labetalol (Normodyne)100 MG tablet 4. Vitamin D deficiency E55.9 5. Chronic hypertension affecting ([facility]) O10.919 labetalol (Normodyne) 100 MG tablet 6. [...] given for patient to get scheduled at [facility] and [facility] Scheduling. Patient to return to clinic in 2 weeks for routine OB appointment. Patient has had ER visits since last appointment due to headaches and elevated BP. Patient to have no lifting and to rest while off work. 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 Patient does have ultrasound and office visit scheduled with us. Thank you for allowing me to participate in the care of Ellen Ramires. If there any questions please do not hesitate to contact us. Yordy Cruz MD Maternal- Medicine [facility] [address] [place] [address] This document was created with inSparq technology. Though I make every effort to review the dictation as it is transcribed, on occasion the spoken word can be misinterpreted by the technology leading to inappropriate words, phrases, or sentences. This note is addressed to the requesting provider as a consultation for clinical guidance. Specificmedical abbreviations are occasionally used and those are generally approved by the [place]?Board of?Obstetrics and?Gynecology?as well as?Rama tapia abbreviations. The above plan of care was based solely on the diagnoses for which a consultation was requested. ?More frequent testing may be indicated based on her other medical/obstetrical conditions. The management of other or medical conditions is beyond the scope of requested consultation and will c ontinue to be followed by the primary dental office receptionist or primary care provider. Note to patient: [...] the practitioner. documented in this encounterUniversity Hospitals Cleveland Medical Center10-15-2025 History of Present illness Narrative* Rody Qiu NP - 06/05/2025 8:50 AM EDT Reason for [...] (polycystic ovarian syndrome) 07/30/2024 induced hypertension, antepartum ([facility]) 04/25/2025 Vitamin D deficiency 05/23/2025 H/O pre-eclampsia in prior , currently ([facility]) 05/23/2025 Resolved Ambulatory Problems Diagnosis Date [...] nursing note reviewed. Exam conducted with a dinkey brakeman present. Vitals: Estimated body mass index is 42.99 kg/m as calculated from the following: Height as of 06/11/24: 5' 8 . Weight as of this encounter: 282 lb 12 oz. BP: 130/76 Patient's last menstrual period was 12/26/2024. ASSESSMENT & PLAN ICD-10-CM 1. Second trimester ([facility]) Z34.92 POCT urinalysis dipstick manually resulted 2. 23 weeks gestation of ([facility]) Z3A.23 Return OB: Patient presents today [...] 06/01/2024 WISDOM TOOTH EXTRACTION documented in this encounterSaint John's HospitalWavknpeeuy03-27-2041 History of Present illness Narrative* Rody Qiu [...] (polycystic ovarian syndrome) 07/30/2024 induced hypertension, antepartum ([facility]) 04/25/2025 Vitamin D deficiency 05/23/2025 H/O pre-eclampsia in prior , currently ([facility]) 05/23/2025 Resolved Ambulatory Problems Diagnosis Date [...] nursing note reviewed. Exam conducted with a dinkey brakeman present. Vitals: Estimated body mass index is 43.03 kg/m as calculated from the following: Height as of 06/11/24: 5' 8 . Weight as of 05/23/25: 283 lb. BP: Patient's last menstrual period was 12/26/2024. ASSESSMENT & PLAN ICD-10-CM 1. Second trimester ([facility]) Z34.92 2. 22 weeks gestation of ([facility]) Z3A.22 POCT urinalysis dipstick manually resulted [...] of: Rody Qiu NP documented in this encounterSaint John's HospitalWhuktqhuba75-78-4284 History of Present illness Narrative* Rody Qiu [...] (polycystic ovarian syndrome) 07/30/2024 induced hypertension, antepartum ([facility]) 04/25/2025 Vitamin D deficiency 05/23/2025 H/O pre-eclampsia in prior , currently ([facility]) 05/23/2025 Resolved Ambulatory Problems Diagnosis Date [...] nursing note reviewed. Exam conducted with a dinkey brakeman present. Vitals: Estimated body mass index is 43.03 kg/m as calculated from the following: Height as of 06/11/24: 5' 8 . Weight as of this encounter: 283 lb. BP: 142/82 Patient's last menstrual period was 12/26/2024. ASSESSMENT & PLAN ICD-10-CM 1. Second trimester ([facility]) Z34.92 POCT urinalysis dipstick manually resulted 2. 21 weeks gestation of ([facility]) Z3A.21 3. induced hypertension, antepartum ([facility]) O13.9 4. Vitamin D deficiency E55.9 5. H/O pre-eclampsia in prior , currently ([facility]) O09.299 Return OB: Patient presents today [...] and edema. She has been evaluated by MFM andin the process of obtaining B/P monitoring through durable medical equipment and MFM. Orders Placed This Encounter Procedures POCT urinalysis dipstick manually resulted Follow Up: Patient is to return to office in 3 week for routine OB appointment. Documented by Melanie Almaraz MA on behalf of: Rody Qiu NP documented in this encounterSaint John's HospitalMmixmhwzqm67-39-7641 History of Present illness Narrative* Bethany Lundy [...] No Have you been seen here at [facility] in a previous ? No Recent ER visits or hospitalizations? Yes, for slicing thumb on mandolin Bring blood sugar log or meter with you today? (Please bring them with you for every visit at [facility]) N/A Flu vaccine (Jun-October)? N/A [...] TESTS AND ULTRASOUND REPORTS: Referral records and [facility] chart were reviewed Pertinent Ultrasound findings are [...] recommended threshold of 160/110. Referenc e: PMID: [id number], 2021. Blood pressures do increase as progresses [...] preeclampsia prevention as is recommended by the [place] [employer] Committee Opinion No. 743. [...] patient is in complete care of her dental office receptionist. Patient does have ultrasound and office visit scheduled with us. Thank you for allowing me to participate in the care of Ellen Ramires. If there any questions please do not hesitate to contact us. Yordy Cruz MD Maternal- Medicine [address] 1st [place] [address] This document was created with inSparq technology. Though I make every effort to review the dictation as it is transcribed, on occasion the spoken word can be misinterpreted by the technology leading to inappropriate words, phrases, or sentences. This note is addressed to the requesting provider as a consultation for clinical guidance. Specificmedical abbreviations are occasionally used and those are generally approved by the [place]?Board of?Obstetrics and?Gynecology?as well as?Rama tapia abbreviations. The above plan of care was based solely on the diagnoses for which a consultation was requested. ?More frequent testing may be indicated based on her other medical/obstetrical conditions. The management of other or medical conditions is beyond the scope of requested consultation and will c ontinue to be followed by the primary dental office receptionist or primary care provider. Note to patient: [...] Blood drawn for cell-free DNA testing per [facility] phlebotomy. Patient tolerated well. documented in this encounterUniversity Hospitals Cleveland Medical Center09-04-2025 History of Present illness Narrative* Rody Qiu NP - 04/25/2025 11:10 AM EDT Reason for [...] (polycystic ovarian syndrome) 07/30/2024 induced hypertension, antepartum ([facility]) 04/25/2025 Resolved Ambulatory Problems Diagnosis Date [...] nursing note reviewed. Exam conducted with a dinkey brakeman present. Vitals: Estimated body mass index is 42.88 kg/m as calculated from the following: Height as of 06/11/24: 5' 8 . Weight as of this encounter: 282 lb. BP: 138/82 Patient's last menstrual period was 12/26/2024. ASSESSMENT & PLAN ICD-10-CM 1. Screening, , for anatomic survey ([facility]) Z36.89 CANCELED: US OB 14+ weeks anatomy scan 2. Second trimester ([facility]) Z34.92 POCT urinalysis dipstick manually resulted 3. 17 weeks gestation of ([facility]) Z3A.17 4. Screen for STD (sexually transmitted disease) Z11.3 SURESWAB(R) ADVANCED VAGINITIS PLUS, TMA CHLAMYDIA TRACHOMATIS (GENITO/STI) Neisseria gonorrhea DNA probe, direct 5. Need for maternal serum alpha-protein (MSAFP) screening ([facility]) Z36.1 Alpha fetoprotein, maternal Alpha fetoprotein, maternal 6. induced hypertension, antepartum ([facility]) O13.9 7. Vitamin D deficiency E55.9 [...] of: Caesar Broderick DO documented in this encounterSaint John's HospitalHoxixjmzhq14-78-8143 History of Present illness Narrative* Karoline Casillas, PROFESSIONAL TUTOR - 04/11/2025 10:30 AM EDT Reason for [...] nursing note reviewed. Exam conducted with a dinkey brakeman present. Vitals: Estimated body mass index is 42.63 kg/m as calculated from the following: Height as of 06/11/24: 5' 8 . Weight as of this encounter: 280 lb 6.4 oz. BP: 140/86 Patient's last menstrual period was 12/26/2024. ASSESSMENT & PLAN ICD-10-CM 1. 15 weeks gestation of ([facility]) Z3A.15 POCT urinalysis dipstick manually resulted 2. Second trimester ([facility]) Z34.92 POCT urinalysis dipstick manually resulted 3. Acute nonintractable headache, unspecified headache type R51.9 4. BP check Z01.30 Patient presents today for a routine obstetrics appointment. Patient is currently 15w1d with a Estimated Date of Delivery: 10/02/25. Patient is having persistent elevated HTN. Discussed patient being referred to [facility] for management and recommendations for Gestational HTN. Patient is agreeable with referral. Patient to be started on Labetalol 200mg BID. Patient given labs and 24 hour urine to have obtained for baseline testing. Patient aware that once lab results are obtained then referral will be completed, so then all results can be sent to [facility] at onetime. Patient to return to clinic in 4 weeks for routine OB appointment. Patient to reach out to office with any concerns/questions. Documented by Karoline Casillas LPN on behalf of: Caesar Broderick DO documented in this encounterSaint John's HospitalYozbuxsfrk61-23-3772 History of Present illness Narrative* Karoline Casillas [...] nursing note reviewed. Exam conducted with a dinkey brakeman present. Vitals: Estimated body mass index is 42.29 kg/m as calculated from the following: Height as of 24: 5' 8 . Weight as of this encounter: 278 lb 1.9 oz. BP: 138/80 Patient's last menstrual period was 12/26/2024. ASSESSMENT & PLAN ICD-10-CM 1. 13 weeks gestation of ([facility]) Z3A.13 POCT urinalysis dipstick manually resulted 2. Second trimester ([facility]) Z34.92 POCT urinalysis dipstick manually resulted [...] or undercooked meat, and stay away from [facility]. Patient has been consulted regarding any [...] of: Caesar Broderick DO documented in this encounterSaint John's HospitalCynjfhhaad84-60-4744 History of Present illness Narrative* Melanie Almaraz [...] dipstick manually resulted , unspecified gestational age ([facility]) - Type and screen; Future - ABO/Rh; Future - CBC and differential - Hemoglobin A1c - RPR - Rubella antibody, IgG - Hepatitis B surface antigen - Hepatitis C antibody - HIV-1 and HIV-2 antibodies - Rapid drug screen, urine; Future Encounter for supervision of normal first in first trimester ([facility]) - Rapid drug screen, urine; Future 9 weeks gestation of ([facility]) Nurse Note: Pt uncertain of doing the [place] Billion to one. Advised pt if she does to make sure both labs and [place] is done at the same time. PVU. Pt did state she had a Vit. D deficiency and has a h/o high blood pressure with G1. [employer] advised patient showed in dating [place] today [...] or undercooked meat, and stay away from [facility]. Patient has also been advised to [...] by: Melanie Almaraz MA documented in this encounterSaint John's [id number] History of Present illness Narrative* Robbie Lopez [...] bilateral tubal patency Saline Infused Sonography: None FIXTURE RELAMPER Pelvic Ultrasound: 2023 FINDINGS: UTERUS: Normal size [...] 10/2024 Thyroid profile includes TSH FT4 Order: [id number] Component Ref Range & Units 2 mo [...] -- -- -- 2.68 -- -labs done [id number] Relationship Status: Have you ever been ? 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 Tadalafil - 10mg as needed Injuries: No STD: No Please select all that are applicable: SA: Yes SA Results: Yes -Done at [facility] 2023- reports was told normal, no report [...] family history on file. [facility] Work Phone: 1(419) 573-649205-15-2025 Instructions* Patient Instructions* Robbie Lopez MD - [...] Lopez 01/03/2025 11:05 AM documented in this encounterS[facility] Work Phone: 1(227) 126-977904-29-2025 History of Present illness Narrative* Kita Griggs LPN - 12/18/2024 1:30 PM EDT Reason for [...] nursing note reviewed. Exam conducted with a dinkey brakeman present. Vitals: Estimated body mass index is [...] after allowing sufficient time to take affect. steel pickler and scissors used to remove affected area. Placed in formalin and sent to pathology. Post-procedure instructions given. Follow Up: as needed Documented by Kita Griggs LPN on behalf of: Caesar Broderick DO documented in this encounterSaint John's HospitalAbeunoneog05-34-3064 History of Present illness Narrative* Melanie Almaraz [...] nursing note reviewed. Exam conducted with a dinkey brakeman present. Vitals: Estimated body mass index is [...] of: Caesar Broderick DO documented in this encounterSaint John's [id number] History of Present illness Narrative* Karoline Casillas [...] of: Caesar Broderick DO documented in this encounterSaint John's [id number] History of Present illness Narrative* Kita Griggs [...] nursing note reviewed. Exam conducted with a dinkey brakeman present. Vitals: Estimated body mass index is [...] of: Caesar Broderick DO documented in this encounterSaint John's [id number] History of Present illness Narrative* Karoline Casillas [...] nursing note reviewed. Exam conducted with a dinkey brakeman present. Vitals: Estimated body mass index is [...] of: Caesar Broderick DO documented in this encounterSaint John's [id number] History of Present illness Narrative* Whitney Painting - 05/03/2024 11:40 AM EDT Reason for Appointment: Patient ID: Ellen Ramires is a 34 y.o. female who presents for Pre-op Visit Patient presents today for Pre Op appointment. Patient is scheduled to undergo Diagnostic Laparoscopy, possible FLAKITO, possible FOE, possible BSO, possible Chromopertubation on 06/01/[address] Broderick at [facility]. MEDICATIONS Current Outpatient Medications Medication Instructions D-400 [...] nursing note reviewed. Exam conducted with a dinkey brakeman present. Vitals: There is no height or [...] reviewed, and patient is to proceed to [facility] OR. Follow Up: Patient is to follow up between 1-2 weeks post operative to assess proper healing and recovery fromprocedure. Documented by Karoline Casillas LPN on behalf of: Caesar Broderick DO documented in this encounterSaint John's [id number] History of Present illness Narrative* Kita Griggs LPN - 04/10/2024 9:10 AM EDT Reason for [...] nursing note reviewed. Exam conducted with a dinkey brakeman present. 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 PCP: [facility] Jazmín Referring Physician: Sabiha Aviles APRN-FUNCTIONAL [place] [address] documented in this encounterUniversity Hospitals [facility]07-22-2024 Miscellaneous Notes* Telephone Encounter - Sheyla Powell CMA - 03/12/2024 2:47 PM EDT Left message for patient to remind them to bring their most current medication list with them to their appointment. documented in this encounterUniversity Hospitals [facility]07-22-2024 Telephone encounter Note* Telephone Encounter - Sheyla Powell CMA - 03/12/2024 2:47 PM EDT Left message for patient to remind them to bring their most current medication list with them to their appointment. [facility]02-20-2023 Evaluation note* Encounter Date Diagnosis Assessment Notes [...] the onset of your symptoms of COVID [employer] Other Chief complaint+Reason for visit Narrative* Chief Complaint sinus pressure, coug h Reason for Visit Contact with and (matt spected) exposure to covid-19 Sore throat Sinusitis [facility] Work Phone: Evaluation note* Diagnosis Onset Date Resolution Status Contact with and (suspected) exposure to covid-19 acuteSore throatacuteSinusitisnoneactive [facility] Work Phone: Evaluation note* Diagnosis Postoperative visit S/P laparoscopic procedure Other postprocedural status documented in this encounter [facility] HealthcareEvaluation note* Diagnosis PCOS (polycystic ovarian syndrome) Polycystic ovaries Encounter for fertility planning documented in this encounter [facility] HealthcareEvaluation note* Diagnosis Pre-op examination Pelvic pain in female Unspecified symptom associated with female genital organs Fallopian tube disorder Unspecified noninflammatory disorder of ovary, fallopian tube, and broad ligament documented in this encounter [facility] HealthcareEvaluation note* Diagnosis Encounter for fertility planning PCOS (polycystic ovarian syndrome) Polycystic ovaries Pelvic pain in female Unspecified symptom associated with female genital organs Abnormal uterine bleeding (AUB) documented in this encounter [facility] HealthcareEvaluation note* Diagnosis Heart palpitations- Primary Palpitations documented in this encounter [facility] SystemEvaluation note* Diagnosis Encounter for fertility planning Acute cystitis without hematuria PCOS (polycystic ovarian syndrome) Polycystic ovaries Fallopian tube disorder Unspecified noninflammatory disorder of ovary, fallopian tube, and broad ligament documented in this encounter [facility] HealthcareEvaluation note* Diagnosis Well woman exam with routine gynecological exam Routine gynecological examination documented in this encounter [facility] HealthcareEvaluation note* Diagnosis Skin mole documented in this encounter [facility] HealthcareEvaluation noteNo assessment information availableCleveland Clinic Work Phone: Evaluation note* Diagnosis Encounter for preprocedural laboratory examination- Primary Abnormal uterine bleeding Unspecified disorder of menstruation and other abnormal bleeding from female genital tract documented in this encounter [facility] Work Phone: Evaluation note* Diagnosis Amenorrhea Absence of menstruation Missed menses , unspecified gestational age ([facility]) Encounter for supervision of normal first in first trimester ([facility]) 9 weeks gestation of ([facility]) Vitamin D deficiency History of hypertension Personal history of other diseases of circulatory system documented in this encounter [facility] HealthcareEvaluation note* Diagnosis 13 weeks gestation of ([facility]) Second trimester ([facility]) state, incidental Acute nonintractable headache, unspecified headache type documented in this encounter [facility] HealthcareEvaluation note* Diagnosis 15 weeks gestation of ([facility]) Second trimester ([facility]) state, incidental Acute nonintractable headache, unspecified headache type BP check Screening for hypertension Gestational hypertension, antepartum ([facility]) induced hypertension, antepartum ([facility]) Transient hypertension of , antepartum documented in this encounter [facility]* Diagnosis Hypertension affecting in second trimester- Primary [facility]* Diagnosis Screening, , for anatomic survey ([facility]) Encounter for anatomic survey Second trimester ([facility]) state, incidental 17 weeks gestation of ([facility]) Screen for STD (sexually transmitted disease) Screening examination for venereal disease Need for maternal serum alpha-protein (MSAFP) screening ([facility]) induced hypertension, antepartum ([facility]) Transient hypertension of , antepartum Vitamin D deficiency documented in this encounter [facility]* Diagnosis Chronic 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 Severe obesity due to excess calories affecting , antepartum ([facility]) 20 weeks gestation of documented in this encounter [facility]* 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 Chronic hypertension affecting Severe obesity due to excess calories affecting , antepartum ([facility]) Hypertension affecting in second trimester documented in this encounter [facility]* 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 Chronic hypertension affecting Severe obesity due to excess calories affecting , antepartum ([facility]) Hypertension affecting in second trimester documented in this encounter [facility] System[facility]* Diagnosis Chronic hypertension affecting ([facility])- Primary Second trimester ([facility]) state, incidental 22 weeks gestation of ([facility]) documented in this encounter [facility]* Diagnosis Second trimester ([facility]) state, incidental 21 weeks gestation of ([facility]) induced hypertension, antepartum ([facility]) Transient hypertension of , antepartum Vitamin D deficiency H/O pre-eclampsia in prior , currently ([facility]) documented in this encounter [facility]* Diagnosis Second trimester ([facility]) state, incidental 23 weeks gestation of ([facility]) documented in this encounter [facility]* Diagnosis Chronic hypertension affecting - Primary 20 weeks gestation of Anxiety disorder affecting , 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 Severe obesity due to excess calories affecting , antepartum ([facility]) documented [facility] Diagnosis Second trimester ([facility]) state, incidental 25 weeks gestation of ([facility]) H/O pre-eclampsia in prior , currently ([facility]) Vitamin D deficiency Chronic hypertension affecting ([facility]) Diabetes mellitus screening Screening for diabetes mellitus documented in this encounter [facility] HealthcareInstructionsNot on filedocumented in this encounterChillicothe [facility] SystemInstructionsNot on filedocumented in this encounterChillicothe [facility] SystemInstructionsNot on filedocumented in this encounterChillicothe [facility] SystemInstructionsNot on filedocumented in this encounterChillicothe [facility] System InstructionsNot on filedocumented in this [facility] InstructionsNot on filedocumented in this [facility] InstructionsNot on filedocumented in this encounterChillicothe [facility] InstructionsNot on filedocumented in this encounterChillicothe [facility] InstructionsNot on filedocumented in this [facility] Family History No Family History Records Found Relationship Condition Age at Onset Recorded Date/T ellis father Hypertension Unknown Diabetes mellitusUnknownNot SpecifiedHypertensionUnknown Relationship Condition Age at Onset Recorded Date/T ellis father Hypertension Unknown Diabetes mellitusUnknownmotherHypertensionUnknown Advance Directives No Advanced Directives Records Found Advance Directive Response Recorded Date/ Time Advance Directives No November 23 12:20pm Summary Purpose Additional Source Comments REASON FOR VISIT (unrecogniz ed section and content) ReasonCommentsPost-op VisitPt present today for post operative visit. Pt had a Dx lap on 06/01/2024.ReasonCommentsDiscuss endocrin referralReasonCommentsPre-op VisitReasonCommentsInfertilityReasonCommentsNew PatientNP PALPITATIONS SCHED W/ PT [facility]S [facility] AT PCPSpecialtyDiagnoses / ProceduresReferred By Contact Referred To ContactCardiology Diagnoses Heart palpitations Sabiha Aviles, KRISTINE-FUNCTIONAL TESTER [employer] [address] [place] [id number] [facility] [address] [place] [address] Referral IDStatusReasonStart DateExpiration DateVisits RequestedVisits [id number] Review Specialty Services Required /[id number] ExamReason CommentsMole removalReasonCommentsInfertilityReasonCommentsAmenorrheaReason CommentsRoutine VisitReasonCommentsgHTNPCOS Care Teams (unrecognized sec tion and content) Team Status: Active Member Role Status Dates PHYSICIAN NO FAMILY Primary Care Provider Active Team Status: Inactive Member Role Status Dates PHYSICIAN NO FAMILY Primary Care Provider Active Start: November 24, 2023 End: November 23amelgavin Singh NP-CAttending ProviderActiveStart: November 24, 2023 End: November 24, 2023Team MemberRelationshipSpecialtyStart DateEnd Date Kromer, Judy PCP - [facility]7/09/14Team MemberRelationshipSpecialtyStart DateEnd Date Kromer, Judy PCP - [facility]7/09/14Team MemberRelationshipSpecialtyStart DateEnd Date Kromer, Judy PCP - [facility]7/09/14Team MemberRelationshipSpecialtyStart DateEnd Date Kromer, Judy PCP - [facility]7/09/14Team MemberRelationshipSpecialtyStart DateEnd Date Kromer, Judy PCP - [facility]7/09/14Team MemberRelationshipSpecialtyStart DateEnd Date Kromer, Judy PCP - [facility]7/09/14Team MemberRelationshipSpecialtyStart DateEnd Date Kromer, Judy PCP - [facility]7/09/14Team MemberRelationshipSpecialtyStart DateEnd Date [address] [place] PCP - GeneralFamily Medicine11/12/22Team MemberRelationshipSpecialtyStart DateEnd Date [facility] [address] [place] PCP - GeneralFamily Medicine11/12/22Team MemberRelationshipSpecialtyStart DateEnd Date [facility] [address] [place] PCP - GeneralFamily Medicine11/12/22Team MemberRelationshipSpecialtyStart DateEnd Date Kromer, Judy PCP - [facility]02/20/24Team MemberRelationshipSpecialtyStart DateEnd Date Kromer, Judy PCP - [facility]02/20/24Team MemberRelationshipSpecialtyStart DateEnd Date Kromer, Judy PCP - [facility]02/20/24Team MemberRelationshipSpecialtyStart DateEnd Date Kromer, Judy PCP - [facility]02/20/24 Team Status: Inactive Member Role Status Dates Caesar Broderick DO Attending Provider Active Start : December 18, 2024 End: December 18, 2024Team MemberRelationshipSpecialtyStart DateEnd Date June Trinidad LPN Licensed Practical NurseReproductive Endocrinology and Infertility01/01/25Team MemberRelationshipSpecialtyStart DateEnd Date Kromer, Judy PCP - [facility]02/20/24Team MemberRelationshipSpecialtyStart DateEnd Date Kromer, Judy PCP - [facility]02/20/24Team MemberRelationshipSpecialtyStart DateEnd Date Kromer, Judy PCP - [facility]02/20/24Team MemberRelationshipSpecialtyStart DateEnd Date Judy Caal PCP - [facility]02/20/24am MemberRelationshipSpecialtyStart DateEnd Date Services, [facility] [address] [place], [place] PCP - GeneralFamily Medicine11/03/24Team MemberRelationshipSpecialtyStart DateEnd Date Services, [facility] [address] [place], [place] PCP - GeneralFamily Medicine11/03/24Team MemberRelationshipSpecialtyStart DateEnd Date Lima Caalsa PCP - [facility]02/20/24Team MemberRelationshipSpecialtyStart DateEnd Date [facility], [facility] [address] [place], [place] PCP - GeneralFamily Medicine11/03/24Team MemberRelationshipSpecialtyStart DateEnd Date Services, [facility] [address] [place], [place] PCP - GeneralFamily Medicine11/03/24Team MemberRelationshipSpecialtyStart DateEnd Date [facility] [address] [place], [place] PCP - GeneralFamily Medicine11/03/24Team MemberRelationshipSpecialtyStart DateEnd Date Andres Caalyssa PCP - [facility]02/20/24Team MemberRelationshipSpecialtyStart DateEnd Date Afua Judy PCP - [facility]02/20/24Team MemberRelationshipSpecialtyStart DateEnd Date Services, [facility] [address] [place], [place] PCP - GeneralFamily Medicine11/03/24Team MemberRelationshipSpecialtyStart DateEnd Date Judy Caal PCP - [facility]02/20/24 Goals (unrecognized section and content) Goals may be documented in a n alternate section INFORMATION SOURCE (unrecogn ized section and content) DATE CREATED AUTHOR 12/29/2024 [facility] DATE CREATED AUTHOR AUTHOR'S ORGANIZ ATION 01/07/2025 [facility] DATE CREATED AUTHOR AUTHOR'S ORGANIZ ATION 06/19/[address] [facility] DATE CREATED AUTHOR AUTHOR'S ORGANIZ ATION 06/20/2025 [facility] DATE CREATED AUTHOR AUTHOR'S ORGANIZ ATION 06/25/2025 [facility] EPIC FOR RECORDS PERTAINING TO PATIENTS [...] BE BASED ON THE PRIMARY CLINICAL RECORDS. [employer] provides no warranty or guarantee of the accuracy or completeness of information in this document.
--- OUTSIDE RECORDS SUMMARY | 2025-07-06 08:05 | XMS_ITS | Clinical Summary ---
Author Organization [employer] [facility] tem Address [id number] [address] [place] [address] Care Team Providers Care Forging Roll Operator Name Role Phone Services, [facility] Primary Care Provider Allergies No known [...] (75 mg total) by mouth before bedtime. Discontinued NIFEdipine XL (PROCARDIA XL) 30 mg 24 hr tablet Indications:Chronic hypertension affecting ,20 weeks gestation of pregnancyTake 1 tablet (30 mg total) by mouth in the morning and at bedtime. 60 tablet Discontinued Active Problems ProblemNoted DateDiagnosed DateHeart viagpysgrzme15/23/2024Estimated Date of YdpksqaiTjojgirgHhg58/11/2026ased on last menstrual period of 12/26/2024 Encounters DateTypeDepartmentCare DgvcFcvxgoyhbvr30/28/2025 2:00 PM EDTTelemedicine Maternal- Medicine at [address] [phone] Yordy Cruz MD Chronic hypertension affecting (Primary Dx); 20 weeks gestation of ; Anxiety disorder affecting , antepartum; Acute palmoplantar pustular psoriasis; Severe obesity due to excess calories affecting , antepartum (CMS-HCC) 06/18/2025 7:48 AM EDT - 06/18/2025 11:59 PM EDTHospital Encounter [facility]ound [address] [place] [phone] Acute palmoplantar pustular psoriasis; Chronic hypertension affecting ; Severe obesity due to excess calories affecting , antepartum ([facility]); Hypertension affecting in second trimester Discharge Disposition: Home06/16/20259999Yeucay77/03/2025Orders Only Maternal- Medicine at [facility] [address] [place] [phone] Bethany Lundy LPN Acute palmoplantar pustular psoriasis; Chronic hypertension affecting ; Severe obesity due to excess calories affecting , antepartum ([facility]); Hypertension affecting in second hthuewtyz89/03/2025Orders Only Maternal- Medicine at [place] [address] [place] [phone] Nikkie, Bethany, STONE PAVER Acute palmoplantar pustular psoriasis (Primary Dx); Chronic hypertension affecting ; Severe obesity due to excess calories affecting , antepartum ([facility]-HCC); Hypertension affecting in second qrdcfczpu43/26/2025 9:00 AM EDTOffice Visit Maternal- Medicine at [facility] [address] [place] [phone] Clair Hare MD Hamilton, Ira, MD Chronic hypertension affecting (Primary Dx); Acute palmoplantar pustular psoriasis; Severe obesity due to excess calories affecting , antepartum ([facility]); 20 weeks gestation of opdqpqtje09/26/2025 7:12 AM EDT - 05/17/2025 11:59 PM EDT Hospital Encounter [facility] Imaging [address] [place] [phone] Hypertension affecting in second trimester Discharge Disposition: Home05/17/2025Results Follow-Up Maternal- Medicine at [place] [place] [phone] Yordy Cruz MD B-type natriuretic scarsvi9205/17/2025Orders Only Maternal- Medicine at [place] [address] [place] [address] Bethany Lundy STONE PAVER Acute palmoplantar pustular psoriasis (Primary Dx); Chronic hypertension affecting ; Severe obesity due to excess calories affecting , antepartum ([facility]); Hypertension affecting in second twsriqkvq81/24/0056Pfglwk39/08/2025 6:45 PM EDT - 04/29/2025 7:24 PM EDTEmergency [facility] Emergency [address] [place] [address] Tian Rodriguez MD Laceration of right thumb without foreign body without damage to nail, initial encounter (Primary Dx) Discharge Disposition: Home04/29/20255072Iasawl73/02/2025Orders Only Maternal- Medicine at [facility] [address] [place] [phone] Ref Prov, Not In System 04/23/2025bstract Maternal- Medicine at [facility] [address] [place] [phone] Yordy Cruz MD 04/19/2025Orders Only Maternal- Medicine at [facility] [address] [place] [phone] Joann Moise RN Hypertension affecting in second [...] money to get more.Never True05/17/2025Estimated Date of GytquywsDprwxistDrh46/11/2026Based on last menstrual period of 12/26/2024Sex and Gender InformationValueDate RecordedSex Assigned at BirthNot on fileLegal Sex Janywu6509/30/2022 2:11 PM ESTGender IdentityNot on fileSexual OrientationNot on file Last Filed Vital Signs Vital SignReadingTime TakenCommentsBlood Qhishxub960/8409 7:51 AM EDT Lkkve818605/17/2025 7:51 AM KECAbmvwmoxxtg42.1 ??C (98.7 ??F)04/29/2025 6:26 PM EDTRespiratory Ngae591704/29/2025 6:26 PM EDTOxygen Ummxpxtwmm26%04/29/2025 6:26 PM EDTInhaled Oxygen Concentration--Hfhlzs519.1 kg (282 lb 8 oz)05/17/2025 7:51 AM QCPKnkqhk383.7 cm (5' 7.99 )05/17/2025 7:51 AM EDTBody Mass Index42.96 05/17/2025 7:51 AM EDT Plan of Treatment DateTypeDepartmentCare Team (Latest Contact Info)Pxkgmcbjmiv32/09/2025 2:00 PM ESTOffice Visit Maternal- Medicine at [facility] [address] [place] [address] Yordy Cruz MD [address] [facility] [address] [place] [address] Health MaintenanceDue DateLast DoneCommentsDepression Jgbazclyz08/29/2004Adult BMI Follow Up Plan2010DTaP,Tdap and Td Vaccines (1 - Tdap)2011 Influenza Gtgffan1504/22/2025RSV ( or age 60+ yrs) (1 - Risk 1- dose series)08/07/2025dult BMI Bzikdkecb01Tobacco Screening Pap Smear, 11/23/2022, 11/23/2022, Additional history exists Medical Devices Not on file Procedures Procedure NamePriorityDate/TimeAssociated DiagnosisCommentsUS M OB FOLLOW-UP, 1 MLKPESgfcaag27/28/2025 9:09 AM EDT 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 Severe obesity due to excess calories affecting , antepartum ([facility]) Hypertension affecting in second trimester B-TYPE NATRIURETIC XQMNBVZLknopkf11/26/2025 9:54 AM EDT Chronic hypertension affecting 20 weeks gestation of [facility] COMPREHENSIVE ANATOMIC VUDHAKIairaff64/26/2025 9:10 AM EDT Hypertension affecting in second trimester UNLISTED LAB PAILMpeokwg52/26/2025 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 Severe obesity due to excess calories affecting , antepartum (CMS-HCC) Hypertension affecting in second trimester PM ED LACERATION PQVEXCAtlferp25/08/2025 6:52 PM EDT URIC PFSULfeljqd65/27/2025 1:11 PM ROPCKMFlyxkaf20/27/2025CREATININE, SERUM Qqhxsir2904/17/2025PROTIME & UNQXbnqrbw71/27/0762CCZDJuypdwt20/27/2025 CBC (NO DIFF)Vtmffja0204/17/2025 PAP GOEXFVkvueuc80/04/2023 5:20 AM EDT Encounter for screening for malignant neoplasm of cervix Encounter for screening for human papillomavirus (HPV) from Last 3 Months or Most Recently Relevant to Health Maintenance Results * [facility] OB FOLLOW-UP, 1 FETUS (06/18/2025 9:09 AM EDT) Only the most recent of2 resultswithin the time period is included. Anatomical RegionLateralityModalityOB-GYNUltrasoundSpecimen (Source)Anatomical Location / LateralityCollection Method / VolumeCollection TimeReceived Time 06/18/2025 8:05 AM EDT Narrative 06/18/2025 9:41 AM EDT NAME: ??PAULA HUGHES : 1990 SEX: F Accession Number: [id number] ORDERING PHYSICIAN: YORDY CRUZ REFERRING PHYSICIAN: ISRAEL LUNA Coding Procedures ? 71248: Ultrasound, uterus, real time with image documentation, follow up,transabdominal ? approach per fetus Indication Screening for follow-up survey, Anxiety , Depression, Obesity in , History of gestationalhypertension, Obesity in , Chronic hypertension affecting . History OB History ? 2. Para 1 ? [id number] Maternal Assessment Physical Exam ??Height 173 cm, [...] (oz) ? 15 oz EFW by: ?Hadlock (JSP-MN-YF-FL) Extended Tibia ??37.8 mm 24w 2d 27% Gavino Nitric Acid Plant Operator ? 4.7 mm CM ? 4.4 [...] Thorax RVOT view. LVOT view. 3-vessel view. 3-zzstqt-froczob view. ? Right lung. Left lung. Abdomen [...] HUGHES : 1990 SEX: F Accession Number: [id number] ORDERING PHYSICIAN: YORDY CRUZ REFERRING PHYSICIAN: ISRAEL LUNA Coding Procedures 72207: Ultrasound, uterus, real time with image documentation, follow up, transabdominal approach per fetus Indication Screening for follow-up survey, Anxiety , Depression, Obesity in , History of gestational hypertension, Obesity in , Chronic hypertension affecting . History OB History 2. Para 1 [id number] Maternal Assessment Physical Exam Height 173 cm, [...] EFW (oz) 15 oz EFW by: Hadlock (HFT-TL-YT-FL) Extended Tibia 37.8 mm 24w 2d 27% Gavino Nitric Acid Plant Operator 4.7 mm CM 4.4 mm 8% [...] Thorax RVOT view. LVOT view. 3-vessel view. 3-zabxiu-phgcdoqcihl. Right lung. Left lung. Abdomen Abdom. wall. [...] as necessary. Authorizing ProviderResult TypeResult Araceli Cruz MDFA[facility]VIEW [facility] [place] ORDERABLES Final Result * B-type natriuretic peptide (05/17/2025 9:54 AM EDT)ComponentValueRef RangeTest MethodAnalysis TimePerformed AtPathologist BrcnkrxhyEZE46<=100 pg/mL05/17/2025 11:13 AM [facility] LABORATORYSpecimen (Source)Anatomical Location / LateralityCollection Method / VolumeCollection TimeReceived Time BloodVenous blood / UnknownVenipuncture / Iixghgv9005/17/2025 9:54 AM EDT 05/17/2025 9:54 AM EDT Narrative Authorizing ProviderResult TypeResult Araceli YOU BLOOD ORDERABLES Final ResultPerforming OrganizationAddressCity/State/ZIP CodePhone Number [facility] [address] [place] [address], * Unlisted Lab Test (05/17/2025)ComponentValueRef RangeTest MethodAnalysis Time Performed AtPathologist SignatureFetal Free Cell Dnalow riskMANUALLY TRANSCRIBED RESULTSSpecimen (Source)Anatomical Location / LateralityCollection Method / VolumeCollection TimeReceived TimeBlood (Arm)05/17/2025 Narrative Authorizing ProviderResult TypeResult Araceli Cruz MDLAB [...] ??Infection and pain ??Alternatives discussed: ??No treatment [place] protocol: ??Procedure explained and questions answered to [...] dressing) ??Procedure completion: ??Tolerated Authorizing ProviderResult TypeResult StatusTian Rodriguez MDPROCEDURE/MINOR SURGICAL ORDERABLESFinal Result * Uric acid (04/17/2025 1:11 PM EDT)Specimen (Source)Anatomical Location / LateralityCollection Method / VolumeCollection TimeReceived TimeBloodVenous blood / Unknown Narrative Authorizing ProviderResult TypeResult StatusNot In System Ref ProvLAB BLOOD ORDERABLESFinal ResultPerforming OrganizationAddressCity/State/ZIP CodePhone Number MANUALLY TRANSCRIBED RESULTS * APTT (04/17/2025)ComponentValueRef RangeTest MethodAnalysis TimePerformed At Pathologist XyxuecwywMDMB56.5MANUALLY TRANSCRIBED RESULTSSpecimen (Source) Anatomical Location / LateralityCollection Method / VolumeCollection Time Received TimeBloodVenous blood / Udhbcba8604/17/2025 Narrative Authorizing ProviderResult TypeResult StatusNot In System Ref ProvLAB BLOOD ORDERABLESFinal ResultPerforming OrganizationAddressCity/State/ZIP CodePhone Number MANUALLY TRANSCRIBED RESULTS * Protime & INR (04/17/2025)Specimen (Source)Anatomical Location / Laterality Collection Method / VolumeCollection TimeReceived TimeBloodVenous blood / Unknown Narrative Authorizing ProviderResult TypeResult StatusNot In System Ref ProvLAB BLOOD ORDERABLESFinal ResultPerforming OrganizationAddressCity/State/ZIP CodePhone Number MANUALLY TRANSCRIBED RESULTS * CBC without diff (04/17/2025)ComponentValueRef RangeTest MethodAnalysis Time Performed AtPathologist DjzwywavkMqqmclfykg21.9MANUALLY TRANSCRIBED RESULTS Rqekqxmlkz72.4MANUALLY TRANSCRIBED RESULTSRbc Mcv (Fl) By Automated Count93.2 MANUALLY TRANSCRIBED LOMJBMDMmnnyvuif332UWAOFNOY TRANSCRIBED RESULTSSpecimen (Source)Anatomical Location / LateralityCollection Method / VolumeCollection TimeReceived TimeBloodVenous blood / Unknown Narrative Authorizing ProviderResult TypeResult StatusNot In System Ref ProvLAB BLOOD ORDERABLESFinal ResultPerforming OrganizationAddressCity/State/ZIP CodePhone Number MANUALLY TRANSCRIBED RESULTS * BUN (04/17/2025)Specimen (Source)Anatomical Location / LateralityCollection Method / VolumeCollection TimeReceived TimeBloodVenous blood / Unknown Narrative Authorizing ProviderResult TypeResult StatusNot In System TrapsterLAB BLOOD ORDERABLESEdited Result - FinalPerforming OrganizationAddressCity/State/ZIP Code Phone Number MANUALLY TRANSCRIBED RESULTS * Creatinine includes GFR, serum (04/17/2025)Specimen (Source)Anatomical Location / LateralityCollection Method / VolumeCollection TimeReceived Time BloodVenous blood / Unknown Narrative Authorizing ProviderResult TypeResult StatusNot In System Ref ProvLAB BLOOD ORDERABLESEdited Result - FinalPerforming OrganizationAddressCity/State/ZIP Code Phone Number MANUALLY TRANSCRIBED RESULTS * Pap Smear (11/23/2022 5:20 AM EDT)Specimen (Source)Anatomical Location / LateralityCollection Method / VolumeCollection TimeReceived Time11/23/2022 5:20 AM EDT11/23/2022 5:29 AM EDT Narrative COPATH - 11/24/2022 1:05 PM EDT [email or web address] ? [facility] ? [address] [place] [address] ? [place] [address] ? Gynecologic Cytology Consultation ? Patient Name:ELLEN RAMIRESMeghan:1990 (Age: 32)Gender:FTaken:11/23/2022Reported:11/24/2022hysician(s):Bethany Raymundo MARKER MACHINE ([phone])Copy To: Rec. #:[id number]: #[id number] Final Cytologic Interpretation ThinPrep Pap Test (Cervical): Satisfactory for evaluation. A transformation zone component is present. NEGATIVE FOR INTRAEPITHELIAL LESION OR MALIGNANCY. ?? jja/11/24/2022 Interpretation performed at [email or web address], [address] [place] [address], License number: [id number]. Electronically Signed Out By ?ZORA Walter(ASCP) Date of Last Menstrual Period: ? (None Given) Other Clinical Conditions: Z12.4 Screening for malignant neoplasm of cervix Z11.51 Screening for HPV Source of Specimen ??ThinPrep Pap Test (Cervical) ? Thin Prep Pap (ORGANIZATIONAL DEVELOPMENT DIRECTOR) Fee Code(s): ?? G0145 Authorizing ProviderResult TypeResult StatusAmy Meliza Raymundo BOOKKEEPER-MARKER MACHINE PATHOLOGY/CYTOLOGY ORDERABLESFinal ResultPerforming OrganizationAddress City/State/ZIP CodePhone Number [facility] from Last 3 Months or Most Recently Relevant to Health Maintenance Insurance * Guarantor: Ellen Ramires TypeRelation to PatientDate of BirthPhone Billing AddressPersonal/XrjctbElid1990 [address] [address] Care Teams Team MemberRelationshipSpecialtyStart DateEnd Date Services, [facility] [address] [place], [place] PCP - GeneralFamily Medicine11/03/24
--- OUTSIDE RECORDS SUMMARY | 2025-07-06 08:05 | XMS_ITS | Encounter Summary ---
Author Organization [facility] Address [address] [place] [address] Care Team Providers Care Superintendent Tests Name Role Phone Judy Caal Unavailable Unavailable Encounter Details DateTypeDepartmentCare Team (Latest Contact Info)Wojmgxvneey35/14/2025Telephone [facility] [address] [place] [address] Tsering Willingham MA Social History Tobacco UseTypesPacks/DayYears UsedDateSmoking Tobacco: Never AssessedPHQ-2 AnswerDate RecordedPatient Health Questionnaire-2 Wbhne75609/01/2024 Estimated Date of GqecxjopAyhjpigjRez46/11/2026Based on last menstrual period of 12/26/2024Sex and Gender InformationValueDate RecordedSex Assigned at BirthNot on fileLegal MgtCkveuo63/06/2024 9:48 AM EDTGender IdentityNot on fileSexual OrientationNot on filedocumented as of this encounter Miscellaneous Notes * Telephone Encounter - Tsering Willingham MA - 07/05/2025 10:41 AM EST Pt advised of results and recommendations. PVU. Orders faxed to [facility] documented in this encounter Plan of Treatment DateTypeDepartmentCare Team (Latest Contact Info)Nwphfxmqkcc49/18/2025 1:20 PM ESTRoutine [facility] [address] [place] [address] Bethany Simon PA [address] [place], [facility]11 12/16/2025 3:00 PM EDTOffice Visit [facility] [address] [address] Caesar Broderick DO [address] [place] [address] NameTypePriorityAssociated DiagnosesOrder ScheduleGlucose tolerance, 3 hoursLab Routine Elevated glucose tolerance test Expected: 07/05/2025 (Approximate), Expires: 07/05/2026BC and differentialLab Routine Elevated glucose tolerance test Expected: 07/05/2025 (Approximate), Expires: 07/05/2026documented as of this encounter Visit Diagnoses Diagnosis Elevated glucose tolerance test Impaired glucose tolerance test documented in this encounter Care Teams Team MemberRelationshipSpecialtyStart DateEnd Date Judy Caal PCP - [facility] 02/20/24documented as of this encounter
--- OUTSIDE RECORDS SUMMARY | 2025-07-06 08:05 | XMS_ITS | Clinical Summary ---
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 Do not crush, chew, or split. 30 tablet 310516Active labetalol (Normodyne) 100 MG tablet Indications:HypertensionTake 1 tablet (100 mg) by mouth Daily 30 tablet 515Active Active Problems ProblemNoted DateDiagnosed DateVitamin D ghuuvxhtut91/02/2025H/O pre-eclampsia in prior , currently ([facility])05/23/2025Pregnancy induced hypertension, antepartum ([facility])04/25/2025Fallopian tube qetnbynj86/09/2024 PCOS (polycystic ovarian syndrome)07/30/2024Estimated Date of Delivery SpulnbxfLxt74/11/2026ased on last menstrual period of 12/26/2024 Encounters DateTypeDepartmentCare RfisFiagomkychq51/14/2025Telephone [facility] [address] [place] [address] [place] [address] Tsering Willingham MA 07/04/2025linisync Result Encounter [facility] External Department Unsolicited DavieIsrael, 07/02/2025Patient Outreach [facility] [address] [place] [address] Bethany Sheehan LPN 06/24/2025 1:50 PM ESTRoutine [facility] [address] [place] [address] [place] Broderick, Second trimester ([facility]); 25 weeks gestation of ([facility]); H/O pre-eclampsia in prior , currently ([facility]); Vitamin D deficiency; Chronic hypertension affecting ([facility]); Diabetes mellitus psegzcapl45/03/2025amboo flowsheet [facility] [address] [place] [address] [place] Broderick, 06/23/20250790Srfwas25/15/2025 8:50 AM EDTRoutine [facility] [address] [place] [address] [place] Qiu, JEM Second trimester ([facility]); 23 weeks gestation of ([facility])06/05/2025amboo flowsheet [facility] [address] [place] [address] [place] Qiu, JEM 06/04/2025Patient Outreach [facility] [address] [place] [address] Bethany Sheehan LPN 05/31/2025bstract [facility] [address] [place] [address] Bethany Sheehan LPN 05/30/2025 3:20 PM EDTRoutine [facility] [address] [place] [phone] [place] Qiu, JEM Chronic [facility] ([facility] Dx); Second trimester ([facility]); 22 weeks gestation of ([facility])05/30/2025amboo flowsheet [facility] [address] [facility] [place] [phone] [place] Qiu NP 05/29/20250033Nllhpa37/07/2025Telephone [facility] [address] [facility] [place] [phone] Melanie Almaraz MA 05/23/2025 2:30 PM EDTRoutine [facility] [address] [facility] [place] [phone] [place] Qiu, JEM Second trimester ([facility]); 21 weeks gestation of ([facility]); induced hypertension, antepartum ([facility]); Vitamin D deficiency; H/O pre-eclampsia in prior , currently ([facility])05/23/2025 Clinisync Result Encounter NOMS External Department Unsolicited [place] Broderick DO 05/23/2025amboo flowsheet [facility] [address] [facility] [place] [phone] [place] Qiu NP 05/22/20252873Ftfyyl65/29/2025bstract [facility] [address] [facility] [place] [phone] Tsering Willingham MA 05/17/2025External Result Encounter [facility] Aman OBRAZN [address] [facility] [place] [address] [place] Broderick DO 05/15/2025Refill [facility] [address] [facility] [place] [address] [place] Broderick, Second trimester ([facility]); Gestational hypertension, antepartum ([facility])05/15/2025Telephone [facility] Aman Jerome [facility] [place] [phone] [place] Broderick, 04/26/2025bstract [facility] Aman Jerome [facility] [place] [address] Jackson WillinghamGoodman, [place] 04/26/2025Telephone [facility] [place] [phone] Maulik TseringDONALD, MA 04/25/2025 11:10 AM EDTRoutine NOMS Aman [address] [place] [address] [place] Broderick, Screening, , for anatomic survey ([facility]); Second trimester ([facility]); 17 weeks gestation of ([facility]); Screen for STD (sexually transmitted disease); Need for maternal serum alpha-protein (MSAFP) screening ([facility]); induced hypertension, antepartum ([facility]); Vitamin D ohsvnlegxa56/04/2025amboo flowsheet N[facility] [address]man [address] [place] [phone] [place] Broderick, 04/23/20250855Serftk46/31/2025Clinisync Result Encounter NOMS External Department Unsolicited [place] Bro[place]ick, 5Clinisync Result Encounter NOMS External Department Unsolicited [place] Bro[place], DO 04/11/2025 10:30 AM EDTRoutine NOMS Aman [address] [place] [phone] [place] Broderick, DO 15 weeks gestation of ([facility]); Second trimester ([facility]); Acute nonintractable headache, unspecified headache type; BP check; Gestational hypertension, antepartum ([facility]); induced hypertension, antepartum ([facility])5Bamboo flowsheet LIANA [facility] [address] [place] [address] [place] [address] [place] Broderick DO from Last 3 Months Family History Medical HistoryRelationNameCommentsepilepsyBrotherDiabetesFatherHTNFather Pancreatic cancerMaternal GrandfatherhtnMotherRelationNameStatusCommentsBrother FatherMaternal GrandfatherMother Social History Tobacco UseTypesPacks/DayYears UsedDateSmoking Tobacco: Never AssessedPHQ-2 AnswerDate RecordedPatient Health Questionnaire-2 Labna19109/01/2024 Estimated Date of NnyddhiqXoxahzjuGxm86/11/2026ased on last menstrual period of 12/26/2024Sex and Gender InformationValueDate RecordedSex Assigned at BirthNot on fileLegal VxnBmxyzu03/06/2024 9:48 AM EDTGender IdentityNot on fileSexual OrientationNot on file Last Filed Vital Signs Vital SignReadingTime TakenCommentsBlood Lhftlhne494/8606/24/2025 1:42 PM EST Pulse--Temperature--Respiratory Rate--Oxygen Saturation--Inhaled Oxygen Concentration--Mrlmec024 kg (285 lb)06/24/2025 1:42 PM AIKBvgrzw785.7 cm (5' 8 ) 06/11/2024 2:39 PM EDTBody Mass Index43.331 2:39 PM EDT Plan of Treatment DateTypeDepartmentCare Team (Latest Contact Info)Abobtolrofc56/18/2025 1:20 PM ESTRoutine NOMTrent HEAD [address] [place] [address] [place] [address] Bethany Simon PA [address] [facility] [place] [address] 12/16/2025 3:00 PM EDTOffice Visit LIANA HEAD [address] [place] [address] [place] [address] [place] Broderick DO [address] [place] [address] [place] [address] Health MaintenanceDue DateLast DoneCommentsCOVID-19 Vaccine ( season) 2025Influenza Vaccine (#1)2025HPV/Tcrhtd65///ervical Cancer Bkauotrtg64/21/2028Pap Smear, 3Pneumococcal Vaccine: Pediatrics (0 to 5 Years) and At-Risk Patients (6 to 64 Years)Aged Out No longer eligible based on patient's age to complete this topic Procedures Procedure NamePriorityDate/TimeAssociated DiagnosisCommentsGLUCOSE 1 HOURRoutine 07/04/2025 10:25 AM EST ALL CBC WITH AUTO UBBNMraqwbh02/13/2025 10:25 AM EST POCT URINALYSIS YAWRWTSSYkcwagv84/03/2025 1:51 PM EST Second trimester ([facility]) POCT URINALYSIS KUXWFIEDKjjcgos18/15/2025 9:03 AM EDT Second trimester ([facility]) POCT URINALYSIS BQDXQRUAQtcnexd18/09/2025 3:24 PM EDT 22 weeks gestation of ([facility]) AFP, SERUM, OPEN SPINA CMLEUMZtawauw16/02/2025 2:30 PM EDT US OB 14+ WEEKS ANATOMY SCAN05/17/2025 4:39 PM EDT RECURRENT VAGINITIS (HTRX)Pxwjpee5104/25/2025 3:21 PM EDT POCT URINALYSIS PITROUXKTmvbdqy74/04/2025 11:38 AM EDT Second trimester ([facility]) [facility] TOTAL PROTEIN 24 HOUR QMQZMGgrodqa11/31/2025 7:00 AM EDT ALL LFKGallcgs99/27/2025 1:21 PM EDT CCF PTCCvyimjs60/27/2025 1:21 PM EDT ALL URIC ILUMTcmrshm96/27/2025 1:21 PM EDT TBH UIGSWAJJVAOmrrmtp30/27/2025 1:21 PM EDT ALL GSWTcsftuw34/27/2025 1:21 PM EDT CCF KRVQKvjrdnw26/27/2025 1:21 PM EDT SRMCOH PROTHROMBIN TIME INR W/O DGUHRkoeeta80/27/2025 1:21 PM EDT ALL CBC WITH AUTO LECTIteipfy75/27/2025 1:21 PM EDT POCT URINALYSIS SGHDKWUHLkuyiaj21/21/2025 11:06 AM EDT 15 weeks gestation of ([facility]) Second trimester ([facility]) PAP MQGJOMncwrtq15/21/2025 12:00 AM EDTfrom Last 3 Months or Most Recently Relevant to Health Maintenance Results * (ABNORMAL) GLUCOSE 1 HOUR (07/04/2025 10:25 AM EST)ComponentValueRef RangeTest MethodAnalysis TimePerformed AtPathologist SignatureGLUCOSE 1 NTEH966(H)<130 mg/dLTBHSpecimen (Source)Anatomical Location / LateralityCollection Method / VolumeCollection TimeReceived Time07/04/2025 10:25 AM EST07/04/2025 10:33 AM EST Narrative CLINISYNC - 07/04/2025 11:32 AM EST Authorizing ProviderResult TypeResult StatusCorey Davie DOLAB BLOOD ORDERABLES Final ResultPerforming OrganizationAddressCity/State/ZIP CodePhone Number CLINISYNC TB * (ABNORMAL) ALL CBC WITH AUTO DIFF (07/04/2025 10:25 AM EST) Only the most recent of2 resultswithin the time period is included. ComponentValueRef RangeTest MethodAnalysis TimePerformed AtPathologist Signature TBH WBC17.3(H)4.0 - 11.0 10 3/uLTBHTBH RBC3.74(L)4.20 - 5.40 10 6/uLTBHTBH HGB 11.8(L)12.0 - 16.0 g/dLTBHTBH HCT35.0(L)36.0 - 48.0 %TBHTBH MCV93.681.0 - 99.0 fLTBHTBH MCH31.626.7 - 34.0 pgTBHTBH MCHC33.729.9 - 35.2 g/dLTBHTBH RDW13.111.0 - 15.0 %TBHTBH AQY430530 - 450 10 3/uLTBHTBH MPV10.49.5 - 13.5 fLTBHNEUTROPHILS PERCENT AUTO84.2(H)43.0 - 75.0 %TBHLYMPHOCYTES PERCENT AUTO10.0(L)20.5 - 60.0 % TBHMONOCYTES PERCENT AUTO3.01.7 - 12.0 %TBHTBH EO %1.60.9 - 7.0 %TBHBASOPHILS PERCENT AUTO0.20.2 - 2.0 %TBHIMMATURE GRANULOCYTES PCT AUTO1.0(H)0.0 - 0.5 %TBH NEUTROPHILS ABSOLUTE AUTO14.6(H)1.4 - 6.5 10 3/uLTBHLYMPHOCYTES ABSOLUTE AUTO1.7 1.2 - 3.8 10 3/uLTBHMONOCYTES ABSOLUTE AUTO0.50.3 - 0.8 10 3/uLTBHTBH EO #0.30.0 - 0.7 10 3/uLTBHBASOPHILS ABSOLUTE AUTO0.00.0 - 0.1 10 3/uLTBHIMMATURE GRANULOCYTES ABS AUTO0.18(H)0.00 - 0.03 10 3/uLTBHSpecimen (Source)Anatomical Location / LateralityCollection Method / VolumeCollection TimeReceived Time 07/04/2025 10:25 AM EST11/ 10:33 AM EST Narrative CLINISYNC - 07/04/2025 10:41 AM EST Authorizing ProviderResult TypeResult StatusCorey Davie DOCLINISYNCFinal Result Performing OrganizationAddressCity/State/ZIP CodePhone Number EVA H * POCT urinalysis dipstick manually resulted (06/24/2025 1:51 PM EST) Only the most recent of5 resultswithin the time period is included. ComponentValueRef RangeTest MethodAnalysis TimePerformed AtPathologist Signature Color, UAYellowClarity, UAClearGlucose, UANegativeNegative - 2000(110) ++++ mg/dLBilirubin, UANegativeNegative - 4(70) +++ mg/dLKetones, UANegativeNegative - 160(16) ++++ mg/dLSpec Grav, UA1.0301 - 1.03Blood, UANegativeNegative - 50 Surjit/mcLpH, UA6.05 - 9Protein, UANegativeNegative - 2000(20) ++++ mg/dL Urobilinogen, UA1.00.2 - 12 mg/dLLeukocytes, UANegativeNegative - 500+++ Kaleigh/mcL Nitrite, UANegativeNegative - PositiveSpecimen (Source)Anatomical Location / LateralityCollection Method / VolumeCollection TimeReceived WkruOewgf23/03/2025 1:51 PM EST Narrative Authorizing ProviderResult TypeResult StatusCorey Davie DOPOINT OF CARE TEST ENTER/EDIT ORDERABLESFinal Result * AFP, SERUM, OPEN SPINA BIFIDA (05/23/2025 2:30 PM EDT)ComponentValueRef Range Test MethodAnalysis TimePerformed AtPathologist SignatureRESULTSReport.TBHTEST RESULTS:*Screen Negative*.TBHGEST. AGE ON COLLECTION DATE21.1. weeksTBHGESTAT. AGE BASED ONLMP.TBHComment: Recalculations are not recommended when gestational dating by LMP and ultrasound are within 10 days. MATERNAL AGE AT EDD33.5. yrTBHRACECaucasian.HWEUTLBVV707. lbsTBHINSULIN DEP DIABETESNo.TBHMULTIPLE GESTATIONNo.TBHAFP VALUE38.2. ng/mLTBHAFP MOM0.85.TBHOSBR RISK 1 [id number].TBHINTERPRETATIONComment.TBHComment: Interpretation: Screen Negative This result is screen [...] Customer Services to discuss available options. ??The [place] [employer] recommends amniocentesis be offered to women age 35 and older. COMMENT:Comment.TBHComment: Gema Ortez, Ph.D., [facility] Director References: Available Upon Request. Multiples Of Median Cutoffs ?For AFP Elevations Kumar ?? 2.5 ? Black ?2.8 IDD ? 2.0 ? Twins ?4.5 ?Abbreviation Definitions IDD - Insulin Dep Diabetes OSBR - Open Spina Bifida Risk For further inquiries contact [employer] at [phone]. This test was developed and its performance characteristics determined by [employer]. It has not been cleared or approved by the Food and Drug Administration. Performed at: ?? - [facility] [place], [place] ??[id number] Rental Car Porter: Jesus Saleh [facility], Phone: ??[phone] Specimen (Source)Anatomical Location / LateralityCollection Method / Volume Collection TimeReceived Time05/23/2025 2:30 PM EDT1 2:40 PM EDT Narrative CLINISYNC - 05/25/2025 1:07 AM EDT N N LMP [id number] 2 9 N 1 282 N N N N N White/ Authorizing ProviderResult TypeResult StatusCorey Davie DOLAB BLOOD ORDERABLES Final ResultPerforming OrganizationAddressCity/State/ZIP CodePhone Number CLINISYNC TBH * US OB 14+ weeks anatomy scan (05/17/2025 4:39 PM EDT)Anatomical Region LateralityModalityBodyUltrasoundSpecimen (Source)Anatomical Location / LateralityCollection Method / VolumeCollection TimeReceived Time05/17/2025 4:39 PM EDT Narrative 05/17/2025 4:39 PM EDT THIS EXAM WAS PERFORMED AT [facility] NAME: ??PAULA HUGHES : 1990 SEX: F Accession Number: [id number] ORDERING PHYSICIAN: ISRAEL BRODERICK REFERRING PHYSICIAN: ISRAEL BRODERICK Coding Procedures ? 04921: Ultrasound, uterus, real time with image documentation, and maternal evaluation ? plus detailed anatomic examination, transabdominal approach;single or first gestation ? 91829: Ultrasound, uterus, real time with image documentation, transvaginal Indication Screening for Anatomic Survey , Screening for cervical length , Anxiety , Depression , Gestational hypertension without significant proteinuria , Obesity in , History of gestational hypertension. History OB History ? 2. Para 1 ? J0T3V5O7 Maternal Assessment Physical Exam ??Height 173 cm, [...] (oz) ? 13 oz EFW by: ?Hadlock (VAS-VY-DA-FL) Extended Tibia ??23.0 mm 18w 1d 2% [...] Heart/Thorax: RVOT view. LVOT view. 3-vessel view. 6-fqbwlw-iitzhvw view. Situs. Bicaval view. Cardiac position. ? [...] left ovarian cyst noted. Recommendations Please see [facility] documentation from today. The patient is scheduled in four to six week(s) to complete anatomic survey. Subsequent follow up or other follow up as clinically determined by primary OB provider unless otherwise specified by [facility]. Results forwarded to ordering provider so they can follow up with the patient as necessary. Procedure Note Radiology, RadiologistMD - 05/17/2025 THIS EXAM WAS PERFORMED AT [facility] NAME: PAULA HUGHES : 1990 SEX: F Accession Number: [id number] ORDERING PHYSICIAN: ISRAEL BRODERICK REFERRING PHYSICIAN: ISRAEL BRODERICK Coding Procedures 76192: Ultrasound, uterus, real time with image documentation, and maternal evaluation plus detailed anatomic examination, transabdominalapproach;single or first gestation 38847: Ultrasound, uterus, real time with imagedocumentation, transvaginal Indication Screening for Anatomic Survey , Screening for cervical length , Anxiety , Depression , Gestational hypertension without significant proteinuria , Obesity in , History of gestational hypertension. History OB History 2. Para 1 [id number] Maternal Assessment Physical Exam Height 173 cm, [...] EFW (oz) 13 oz EFW by: Hadlock (GUX-YR-QT-FL) Extended Tibia 23.0 mm 18w 1d 2% [...] Heart/Thorax: RVOT view. LVOT view. 3-vessel view. 3-rdfjqp-zybscxw view.Situs. Bicaval view. Cardiac position. Cardiac axis. [...] left ovarian cyst noted. Recommendations Please see [facility] documentation from today. The patient is scheduled in four to six week(s) to complete anatomicsurvey. Subsequent follow up or other follow up as clinically determined byprimary OB provider unless otherwise specified by [facility]. Results forwarded to ordering provider so they can follow up with thepatient as necessary. Authorizing ProviderResult TypeResult StatusCorey Davie DURHAM OB US PROCEDURES Final Result * (ABNORMAL) RECURRENT VAGINITIS (HTRX) (04/25/2025 3:21 PM EDT)ComponentValue Ref RangeTest MethodAnalysis TimePerformed AtPathologist SignatureATOPOBIUM XCGCWCS856.961 - 24.689 ppm04/26/2025 6:[address] [facility] ATOPOBIUM VAGINAENot Mezludwv31.961 - 24.689 ppm04/26/2025 6:40 AM EDT [facility]BV[facility] 2,3 (BACTERIAL VAGINOSIS ASSOCIATED BACTERIA 2, 3); MOBILUNCUS SPP24.556(A)19.961 - 24.689 ppm04/26/2025 6:40 AM EDT [facility] 2,3 (BACTERIAL VAGINOSIS ASSOCIATED BACTERIA 2, 3); MOBILUNCUS SPPDetected(A)19.961 - 24.689 ppm04/26/2025 6:40 AM EDT [facility] HospitalCANDIDA ALBICANS, PARAPSILOSIS, CWWWORHCFD225.000 - 30.347 ppm04/26/2025 6:[address] [facility] HospitalCANDIDA ALBICANS, PARAPSILOSIS, TROPICALISNot Rucyqafw37.000 - 30.347 ppm04/26/2025 6:40 AM EDT [facility] HospitalCANDIDA EFNJGLIX275.000 - 31.618 ppm04/26/2025 6:40 AM EDTHealthTrackRx at LabInd[facility] HospitalCANDIDA GLABRATANot Ibuijfzg18.000 - 31.618 ppm 04/26/2025 6:[address] [facility] HospitalCANDIDA UBUHNQ465.000 - 30.873 ppm04/26/2025 6:[address] [facility] HospitalCANDIDA KRUSEINot Detected 23.000 - 30.873 ppm04/26/2025 6:[address] Elizabeth HospitalCHLAMYDIA YDRFZLHSYPX363.000 - 31.586 ppm04/26/2025 6:[address] [facility] CHLAMYDIA TRACHOMATISNot Umrlpkey19.000 - 31.586 ppm04/26/2025 6:40 AM EDT [facility] HospitalGARDNERELLA SDCQRWEXY423.961 - 24.689 ppm04/26/2025 6:40 AM EDTHealthTrackRx at LabInd[facility] HospitalGARDNERELLA VAGINALISNot Wxpoujqs73.961 - 24.689 ppm04/26/2025 6:40 AM EDTHealthTrackRx at LabPortMEGASPHAERA (TYPES 1, 2)019.961 - 24.689 ppm04/26/2025 6:40 AM EDTHealthTrackRx at LabPort MEGASPHAERA (TYPES 1, 2)Not Xjtjqmdh54.961 - 24.689 ppm04/26/2025 6:40 AM EDT [facility] LabPortNEISSERIA VHBWMQYKGCE233.000 - 32.587 ppm04/26/2025 6:40 AM EDTHealthTrackRx at LabInd[facility] HospitalNEISSERIA GONORRHOEAENot Huzjzazd42.000 - 32.587 ppm04/26/2025 6:40 AM EDTHealthTrackRx at LabPortTRICHOMONAS VAGINALIS0 23.000 - 31.995 ppm04/26/2025 6:40 AM EDTHealthTrackRx at LabPortTRICHOMONAS VAGINALISNot Qjgbxmgf23.000 - 31.995 ppm04/26/2025 6:40 AM EDTHealthTrackRx at LabPortMYCOPLASMA OAUBTBHLTB944.961 - 24.689 ppm04/26/2025 6:40 AM EDT [facility] LabPortMYCOPLASMA GENITALIUMNot Xfkkgjaj58.961 - 24.689 ppm 04/26/2025 6:40 AM EDTHealthTrackRx at LabPortSpecimen (Source)Anatomical Location / LateralityCollection Method / VolumeCollection TimeReceived Time Yhswaw0304/25/2025 3:21 PM EDT04/26/2025 1:52 AM EDT Narrative Authorizing ProviderResult TypeResult StatusCorey Davie DOLAB BLOOD ORDERABLES Final ResultPerforming OrganizationAddressCity/State/ZIP CodePhone Number [facility] [address] [address] * [facility] TOTAL PROTEIN 24 HOUR URINE (04/21/2025 7:00 AM EDT)ComponentValueRef RangeTest MethodAnalysis TimePerformed AtPathologist SignatureTOTAL PROTEIN URINE RANDOM<6.0<=11.9 mg/dLTBHTOTAL VOLUME 24 HOUR URINE2,500mL/24hrTBH Specimen (Source)Anatomical Location / LateralityCollection Method / Volume Collection TimeReceived Time04/21/2025 7:00 AM EDT04/21/2025 9:25 AM EDT Narrative CLINISYNC - 04/21/2025 1:50 PM EDT Authorizing ProviderResult TypeResult StatusCorey Davie DOCLINISYNCFinal Result Performing OrganizationAddressCity/State/ZIP CodePhone Number [facility] * TB[facility] CREATININE (04/17/2025 1:21 PM EDT)ComponentValueRef RangeTest Method Analysis TimePerformed AtPathologist SignatureCREATININE0.560.55 - 1.02 mg/dL TBHTBH EGFR-AF PARAGUAYAN>60>=60 mL/min/1.73m 2TBHTBH EGFR-NON AF PARAGUAYAN>60 >=60 mL/min/1.73m 2TBHSpecimen (Source)Anatomical Location / Laterality Collection Method / VolumeCollection TimeReceived Time04/17/2025 1:21 PM EDT 04/17/2025 1:22 PM EDT Narrative CLINISYNC - 04/17/2025 1:56 PM EDT Authorizing ProviderResult TypeResult StatusCorey Davie DOCLINISYNCFinal Result Performing OrganizationAddressCity/State/ZIP CodePhone Number [facility] * SRMCOH PROTHROMBIN TIME INR W/O COUM [...] Performing OrganizationAddressCity/State/ZIP CodePhone Number CLINISYNC TB[facility] * [facility] AST (04/17/2025 1:21 PM EDT)ComponentValueRef RangeTest MethodAnalysis TimePerformed AtPathologist SignatureASPARTATE AMINO [id number] - 37 U/L TBHSpecimen (Source)Anatomical Location / LateralityCollection Method / Volume Collection TimeReceived Time04/17/2025 1:21 PM EDT04/17/2025 1:22 PM EDT Narrative CLINISYNC - 04/17/2025 1:56 PM EDT Authorizing ProviderResult TypeResult StatusCorey Davie DOCLINISYNCFinal Result Performing OrganizationAddressCity/State/ZIP CodePhone Number CLINISYNC TB * C[facility] APTT (04/17/2025 1:21 PM EDT)ComponentValueRef RangeTest MethodAnalysis TimePerformed AtPathologist SignaturePARTIAL THROMBOPLASTIN TIME26.522.3 - 36.2 secTBHSpecimen (Source)Anatomical Location / LateralityCollection Method / VolumeCollection TimeReceived Time04/17/2025 1:21 PM EDT04/17/2025 1:22 PM EDT Narrative CLINISYNC - 04/17/2025 1:54 PM EDT Authorizing ProviderResult TypeResult StatusCorey Davie DOCLINISYNCFinal Result Performing OrganizationAddressCity/State/ZIP CodePhone Number CLINISYNC TB * ALL URIC ACID (04/17/2025 1:21 PM EDT)ComponentValueRef RangeTest Method Analysis TimePerformed AtPathologist SignatureURIC ACID5.12.6 - 6.0 mg/dLTBH Specimen (Source)Anatomical Location / LateralityCollection Method / Volume Collection TimeReceived Time04/17/2025 1:21 PM EDT04/17/2025 1:22 PM EDT Narrative CLINISYNC - 04/17/2025 1:56 PM EDT Authorizing ProviderResult TypeResult StatusCorey Davie DOCLINISYNCFinal Result Performing OrganizationAddressCity/State/ZIP CodePhone Number CLINISYNC [facility] * ALL LDH (04/17/2025 1:21 PM EDT)ComponentValueRef RangeTest MethodAnalysis TimePerformed AtPathologist SignatureLACTATE [id number] - 234 U/LTBH Specimen (Source)Anatomical Location / LateralityCollection Method / Volume Collection TimeReceived Time04/17/2025 1:21 PM EDT04/17/2025 1:22 PM EDT Narrative CLINISYNC - 04/17/2025 1:56 PM EDT Authorizing ProviderResult TypeResult StatusCorey Davie DOCLINISYNCFinal Result Performing OrganizationAddressCity/State/ZIP CodePhone Number [facility] * ALL BUN (04/17/2025 1:21 PM EDT)ComponentValueRef RangeTest MethodAnalysis TimePerformed AtPathologist SignatureBLOOD UREA NITROGEN7.07.0 - 18.0 mg/dLTBH Specimen (Source)Anatomical Location / LateralityCollection Method / Volume Collection TimeReceived Time04/17/2025 1:21 PM EDT04/17/2025 1:22 PM EDT Narrative CLINISYNC - 04/17/2025 1:56 PM EDT Authorizing ProviderResult TypeResult StatusCorey Davie DOCLINISYNCFinal Result Performing OrganizationAddKind[facility]ownty/State/ZIP CodePhone Number [facility] * Pap Smear (12/10/2024 12:00 AM EDT)Specimen (Source)Anatomical Location / LateralityCollection Method / VolumeCollection TimeReceived TimeSwabCervical swab / Unknown Narrative Authorizing ProviderResult TypeResult StatusFazio Nurse Noms Bcp ObLAB CYTOLOGY ORDERABLESFinal ResultPerforming OrganizationAddKindred Hospital [facility] Havertownty/State/ZIP CodePhone Number EXTERNAL LAB from Last 3 Months or Most Recently Relevant to Health Maintenance Insurance Care Teams Team MemberRelationshipSpecialtyStart DateEnd Date Judy Caal PCP - [facility]02/20/24
--- OUTSIDE RECORDS SUMMARY | 2025-07-06 08:06 | XMS_ITS | Encounter Summary ---
Author Organization [facility] Address [address] [place] [address] Care Team Providers Care Water Valve Mechanic Name Role Phone Judy Caal Unavailable Unavailable Encounter Details DateTypeDepartmentCare Team (Latest Contact Info)Csotsoqflna54/11/2025Patient Outreach [facility] [address] [place] [phone] Bethany Sheehan LPN [address] [place] [address] Social History Tobacco UseTypesPacks/DayYears UsedDateSmoking Tobacco: Never AssessedPHQ-2 AnswerDate RecordedPatient Health Questionnaire-2 Adyqh67909/01/2024 Estimated Date of KdnhavyyLeabvhhhXgn73/11/2026Based on last menstrual period of 12/26/2024Sex and Gender InformationValueDate RecordedSex Assigned at BirthNot on fileLegal OguBfekyv32/06/2024 9:48 AM EDTGender IdentityNot on fileSexual OrientationNot on filedocumented as of this encounter Functional Status * Over the past 2 weeks, how often have you been bothered by any of the following problems?QuestionAnswerDate of AssessmentAuthorLittle interest or pleasure in doing thingsNot at all07/02/2025 12:18 PM Bethany Langford LPN Feeling down, depressed, or hopelessNot at all07/02/2025 12:18 PM Bethany Langford LPNPatient Health Questionnaire-2 Hetsh14009/01/2024 12:18 PM Bethany Langford LPN documented as of this encounter Progress Notes * Bethany Sheehan LPN - 07/02/2025 12:18 PM EST Monthly Outreach. Call to pt. Pt reports she is now home from work for remainder of per OB, due to elevated Bps. Pt reports she monitors BP daily as ordered and they are much improved sincebeing managed at home. Pt reports she feels baby moving frequently. Appetite and sleep are adequate. Bowels are regular. Pt denies any depression or difficulty coping at this time. Pt denies any questions, concerns or needs today. Meds reviewed. Next OB OV 07/09/25. documented in this encounter Plan of Treatment DateTypeDepartmentCare Team (Latest Contact Info)Hrsszlkypek62/18/2025 1:20 PM ESTRoutine [facility] HEAD [address] [facility] [place] [phone] Bethany Simon, PA [address] [facility] [address] [place], [place] [address] 12/16/2025 3:00 PM EDTOffice Visit NOM[facility]rent HEAD [address] [facility] [place] [phone] Caesar Broderick DO [address] [facility] [address] [place], [place] [address] documented as of this encounter Visit Diagnoses Not on filedocumented in this encounter Care Teams Team MemberRelationshipSpecialtyStart DateEnd Date Judy Caal PCP - [facility]02/20/24documented as of this encounter
--- OUTSIDE RECORDS SUMMARY | 2025-07-06 08:06 | XMS_ITS | Encounter Summary ---
Author Organization [facility] Address [address] [place] [address] Care Team Providers Care Group Work Program Director Name Role Phone Judy Caal Unavailable Unavailable Encounter Details DateTypeDepartmentCare Team (Latest Contact Info)Trnhrxqvzsk29/13/2025linisync Result Encounter NOMS External Department Unsolicited Caesar Broderick DO [address] [facility] [address] [place], [facility]11 Social History Tobacco UseTypesPacks/DayYears UsedDateSmoking Tobacco: Never AssessedPHQ-2 AnswerDate RecordedPatient Health Questionnaire-2 Fdjsq57509/01/2024 Estimated Date of TyhpgmhkHyvbfmnhWlf77/11/2026ased on last menstrual period of 12/26/2024Sex and Gender InformationValueDate RecordedSex Assigned at BirthNot on fileLegal BbjGmobfx99/06/2024 9:48 AM EDTGender IdentityNot on fileSexual OrientationNot on filedocumented as of this encounter Plan of Treatment DateTypeDepartmentCare Team (Latest Contact Info)Sfwgsgvwssq55/18/2025 1:20 PM ESTRoutine [facility] [address] [facility] [address] Bethany Simon PA [address] [facility] [address] [place], [facility]11 12/16/2025 3:00 PM EDTOffice Visit [facility] [address] [facility] [place] [address] Caesar Broderick, [address] [place] [address] documented as of this encounter Procedures Procedure NamePriorityDate/TimeAssociated DiagnosisCommentsGLUCOSE 1 HOURRoutine 07/04/2025 10:25 AM EST ALL CBC WITH AUTO QOFTTomzvbr39/13/2025 10:25 AM EST documented in this encounter Results * (ABNORMAL) GLUCOSE 1 HOUR (07/04/2025 10:25 AM EST)ComponentValueRef RangeTest MethodAnalysis TimePerformed AtPathologist SignatureGLUCOSE 1 SBFC579(H)<130 mg/dLTBHSpecimen (Source)Anatomical Location / LateralityCollection Method / VolumeCollection TimeReceived Time07/04/2025 10:25 AM EST07/04/2025 10:33 AM EST Narrative CLINISYNC - 07/04/2025 11:32 AM EST Authorizing ProviderResult TypeResult StatusCorey Davie DOL BLOOD ORDERABLES Final ResultPerforming OrganizationAddressCity/State/ZIP CodePhone Number [facility] * (ABNORMAL) ALL CBC WITH AUTO DIFF (07/04/2025 10:25 AM EST)ComponentValueRef RangeTest MethodAnalysis TimePerformed AtPathologist SignatureTBH WBC17.3(H) 4.0 - 11.0 10 3/uLTBHTBH RBC3.74(L)4.20 - 5.40 10 6/uLTBHTBH HGB11.8(L)12.0 - 16.0 g/dLTBHTBH HCT35.0(L)36.0 - 48.0 %TBHTBH MCV93.681.0 - 99.0 fLTBHTBH MCH 31.626.7 - 34.0 pgTBHTBH MCHC33.729.9 - 35.2 g/dLTBHTBH RDW13.111.0 - 15.0 % TBHTBH PIR425926 - 450 10 3/uLTBHTBH MPV10.49.5 - 13.5 fLTBHNEUTROPHILS PERCENT AUTO84.2(H)43.0 - 75.0 %TBHLYMPHOCYTES PERCENT AUTO10.0(L)20.5 - 60.0 %TBHMONOCYTES PERCENT AUTO3.01.7 - 12.0 %TBHTBH EO %1.60.9 - 7.0 %TBHBASOPHILS PERCENT AUTO0.20.2 - 2.0 %TBHIMMATURE GRANULOCYTES PCT AUTO1.0(H)0.0 - 0.5 % TBHNEUTROPHILS ABSOLUTE AUTO14.6(H)1.4 - 6.5 10 3/uLTBHLYMPHOCYTES ABSOLUTE AUTO1.71.2 - 3.8 10 3/uLTBHMONOCYTES ABSOLUTE AUTO0.50.3 - 0.8 10 3/uLTBHTBH EO #0.30.0 - 0.7 10 3/uLTBHBASOPHILS ABSOLUTE AUTO0.00.0 - 0.1 10 3/uLTBH IMMATURE GRANULOCYTES ABS AUTO0.18(H)0.00 - 0.03 10 3/uLTBHSpecimen (Source) Anatomical Location / LateralityCollection Method / VolumeCollection Time Received Time07/04/2025 10:25 AM EST07/04/2025 10:33 AM EST Narrative CLINISYNC - 07/04/2025 10:41 AM EST Authorizing ProviderResult TypeResult StatusCorey Davie DOCLINISYNCFinal Result Performing OrganizationAddressCity/State/ZIP CodePhone Number CLINISYFORMERLY [facility] documented in this encounter Visit Diagnoses Not on filedocumented in this encounter Care Teams Team MemberRelationshipSpecialtyStart DateEnd Date Judy Caal PCP - [facility]02/20/24documented as of this encounter
--- OUTSIDE RECORDS SUMMARY | 2025-07-06 08:07 | XMS_ITS | Encounter Summary ---
Author Organization [facility] Address [address] [place] [address] Care Team Providers Care Centrex Radio Operator Name Role Phone Jduy Caal Unavailable Unavailable Encounter Details DateTypeDepartmentCare Team (Latest Contact Info)Npoenyujfdn55/03/2025amboo flowsheet LIANA HEAD [address] [facility] [place] [address] Caesar Broderick DO [address] [facility] [address] [place], [facility]11 Social History Tobacco UseTypesPacks/DayYears UsedDateSmoking Tobacco: Never AssessedPHQ-2 AnswerDate RecordedPatient Health Questionnaire-2 Bjhtj620 Estimated Date of XhghofjsXioiscxiBmw45/11/2026Based on last menstrual period of 12/26/2024Sex and Gender InformationValueDate RecordedSex Assigned at BirthNot on fileLegal LgdGkmqfp48/06/2024 9:48 AM EDTGender IdentityNot on fileSexual OrientationNot on filedocumented as of this encounter Plan of Treatment DateTypeDepartmentCare Team (Latest Contact Info)Qqwrflmbkff00/18/2025 1:20 PM ESTRoutine NOMTrent HEAD [address] [facility] [place] [address] Bethany Simon PA [address] [facility] [place] [address] 12/16/2025 3:00 PM EDTOffice Visit [facility] [address] [facility] [place] [phone] Caesar Broderick DO [address] [facility] [place] [address] documented as of this encounter Visit Diagnoses Not on filedocumented in this encounter Care Teams Team MemberRelationshipSpecialtyStart DateEnd Date Judy Caal PCP - [facility]02/20/24documented as of this encounter
[2025-07-06 08:36] LABS: Hematocrit 35.1 % (36.0-48.0); Hemoglobin 11.7 g/dL (12.0-16.0); Immature Granulocytes Abs Auto 0.18 10^3/uL (0.00-0.03); Immature Granulocytes Pct Auto 1.2 % (0.0-0.5); Lymphocytes Absolute Auto 2.0 10^3/uL (1.2-3.8); Mean Corpuscular HGB Conc 33.3 g/dL (29.9-35.2); Mean Corpuscular Hemoglobin 31.0 pg (26.7-34.0); Mean Corpuscular Volume 93.1 fL (81.0-99.0); Platelet Count 253 10^3/uL (150-450); Red Blood Count 3.77 10^6/uL (4.20-5.40); White Blood Count 15.3 10^3/uL (4.0-11.0)
[2025-07-06 09:50] LABS: Glucose 1 Hour 157 mg/dL (<180)
[2025-07-06 11:28] LABS: Glucose 2 Hour 107 mg/dL (<155)
[2025-07-06 12:02] LABS: Glucose 3 Hour 67 mg/dL (<140)
== END 2025-07-06 08:03 | disposition home or self-care (01) ==
LOC: LAB 08:02
PROVIDERS: Visit Provider Obstetrics & Gynecology
DX: R73.09 Other abnormal glucose (principal)
CPT/HCPCS: 36415; 82951; 82952; 85025

== ENCOUNTER 2025-07-12 09:50 | Outpatient (OUT) | payer MEDICAID, SELFPAY ==
--- OUTSIDE RECORDS SUMMARY | 2024-05-14 08:30 | XMS_ITS ---
Author Organization [facility] vices Address [address] [place], [place] [address] Care Team Providers Care Photographic Laboratory Technician Name Role Phone Sabiha Aviles Primary Care Provider [phone] REASON FOR VISIT 3 mo Vit D Social History Sex Assigned At : Social History Observation Description Sex Assigned At Female Encounters Encounter Location Date Provider Diagnosis [address] [id number] 05/14 Sabiha Aviles Plan Of Treatment Next Appt Details Provider Name:Judy Yepez , 08/20/2025 01:15:00 PM, [address] [place], [place], [id number], Progress Notes * Chayo RAMIRESDOB: 2 (35 yo F)Acc No.[id number]:05/14/2024 Medical Note Patient: Trent murphy Chayo Lockwood :?Sabiha AvilesDOB:1990???Age:34 Y???Sex: FemaleDate:05/14/2024hone:[phone]:[address] [facility], [address], [place], [place] Subjective: * Chief Complaints: * 3 mo Vit D * Electronic signature of THEA Ward on 07/12/2025 at 09:50 AM ESTSign off status: Pending * Provider: Jill Aviles Date: 0 05/14/2024 Generated for Printing/Faxing/eTransmitting on:?07/12/2025 09:50 AM EST
--- OUTSIDE RECORDS SUMMARY | 2024-05-24 10:00 | XMS_ITS ---
Author Organization [facility] vices Address [address] [place], [place] [phone] Care Team Providers Care Butcher Chicken And Fish Name Role Phone Sabiha Aviles Primary Care Provider [phone] Noelle Chris Unavailable REASON FOR VISIT 3 mo Vit D Social History Sex Assigned At : Social History Observation Description Sex Assigned At Female Encounters Encounter Location Date Provider Diagnosis Main [address] [place], [place] [id number] 05/24/2024 Noelle Chris Plan Of Treatment Next Appt Details Provider Name:Judy Yepez , 08/20/2025 01:15:00 PM, [address] [place], [place], [phone], Progress Notes * Chayo RAMIRESDOB: 2 (35 yo F)Acc No.[id number]:05/24/2024 Medical Note Patient: Trent murphy Chayo Lockwood :?DANA PerezCDOB:1990???Age:34 Y???Sex:FemaleDate:05/24/2024hone:[phone]:[address] [facility], [address], [place], [place]Vvi:Sabiha Aviles Subjective: * Chief Complaints: * 3 mo Vit D Billing Information: * Procedure Codes: * Electronic signature of FABI Perez on 07/12/2025 at 09:49 AM EST Sign off status: Pending * Provider: FABI Acevedo Date: Generated for Printing/Faxing/eTransmitting on:?07/12/2025 09:49 AM EST
--- OUTSIDE RECORDS SUMMARY | 2024-06-25 10:00 | XMS_ITS ---
Author Organization [facility] vices Address [address] [place], [place] [address] Care Team Providers Care Research & Analytics Manager Name Role Phone Sabiha Aviles Primary Care Provider [phone] REASON FOR VISIT 3mo. F/U Vit. D. Social History Sex Assigned At : Social History Observation Description Sex Assigned At Female Encounters Encounter Location Date Provider Diagnosis [address] [phone] 06/25 Sabiha Aviles Plan Of Treatment Next Appt Details Provider Name:Judy Yepez , 08/20/2025 01:15:00 PM, [address] [place], [place], [phone], Progress Notes * Chayo RAMIRESDOB: 2 (35 yo F)Acc No.[id number]:06/25/2024 Medical Note Patient: Trent murphy Chayo Lockwood :?Sabiha AvilesDOB:1990???Age:34 Y???Sex: FemaleDate:06/25/2024hone:[phone]:[address] [place] [address], [address] [place] [address] Subjective: * Chief Complaints: * 3 mo. F/U Vit. D. Billing Information: * Procedure Codes: * Electronic signature of THEA Ward on 07/12/2025 at 09:49 AM ESTSign off status: Pending * Provider: Jill Aviles Date: 08/25/2023 Generated for Printing/Faxing/eTransmitting on:?07/12/2025 09:49 AM EST
--- OUTSIDE RECORDS SUMMARY | 2025-03-05 08:15 | XMS_ITS ---
Author Organization [facility] vices Address [address] [place], [place] [phone] Care Team Providers Care Laborer General Name Role Phone Sabiha Aviles Primary Care Provider REASON FOR VISIT 3m depression, anxiety Social History Sex Assigned At : Social History Observation Description Sex Assigned At Female Encounters Encounter Location Date Provider Diagnosis [address] [phone] 03/05 Sabiha Aviles Plan Of Treatment Next Appt Details Provider Name:Judy Yepez , 08/20/2025 01:15:00 PM, [address] [place], [place], [phone], Progress Notes * Chayo RAMIRESDOB: 2 (35 yo F)Acc No.[id number]:03/05/2025 Medical Note Patient: Trent murphy Chayo Lockwood :?Sabiha AvilesDOB:1990???Age:34 Y???Sex: FemaleDate:03/05/2025Phone:[phone]:[address] [facility], [address], [place], [place] Subjective: * Chief Complaints: * 3 m depression, anxiety * Electronic signature of THEA Ward on 07/12/2025 at 09:49 AM ESTSign off status: Pending * Provider: Jill Aviles Date: 0 03/05/2025 Generated for Printing/Faxing/eTransmitting on:?07/12/2025 09:49 AM EST
--- OUTSIDE RECORDS SUMMARY | 2025-05-20 08:15 | XMS_ITS ---
Author Organization [facility] vices Address [address] [place], [place] [address] Care Team Providers Care Wellness Director Name Role Phone Sabiha Aviles Primary Care Provider Noelle Chris Unavailable REASON FOR VISIT depression Social History Sex Assigned At : Social History Observation Description Sex Assigned At Female Encounters Encounter Location Date Provider Diagnosis Main [address] [place], [place] [id number] 05/20/2025 Noelle Chris Plan Of Treatment Next Appt Details Provider Name:Judy Yepez , 08/20/2025 01:15:00 PM, [address] [place], [place], [phone], Progress Notes * Chayo RAMIRESDOB: 2 (35 yo F)Acc No.[id number]:05/20/2025 Medical Note Patient: Trent murphy Chayo Lock[place] :?DANA PerezCDOB:1990???Age:35 Y???Sex:FemaleDate:05/20/2025Phone:[phone]:[address] [facility], [address] [facility], [place], [place]Ual:Sabiha Aviles Subjective: * Chief Complaints: * D epression Billing Information: * Procedure Codes: * Electronic signature of FABI Perez on 07/12/2025 at 09:49 AM EST Sign off status: Pending * Provider: FABI Acevedo Date: 0 05/20/2025 Generated for Printing/Faxing/eTransmitting on:?07/12/2025 09:49 AM EST
--- OUTSIDE RECORDS SUMMARY | 2025-07-09 13:20 | XMS_ITS | Encounter Summary ---
Author Organization [facility] Address [address] [place] [address] Care Team Providers Care Operations Superintendent Name Role Phone Judy Caal Unavailable Unavailable Reason for Visit * ReasonCommentsRoutine Visit Encounter Details DateTypeDepartmentCare Team (Latest Contact Info)Btrywnhdfkx56/18/2025 1:20 PM ESTRoutine [facility] [address] [facility] [place] [phone] Bethany Simon PA [address] [facility] [place] [address] 27 weeks gestation of ([facility]); Second trimester ([facility]); H/O pre-eclampsia in prior , currently ([facility]); Vitamin D deficiency; Chronic hypertension affecting ([facility]); BV (bacterial vaginosis) Social History Tobacco UseTypesPacks/DayYears UsedDateSmoking Tobacco: Never AssessedPHQ-2 AnswerDate RecordedPatient Health Questionnaire-2 Jnuut67209/01/2024 Estimated Date of IrkqwpbrWrwdmfouRxf33/11/2026Based on last menstrual period of 12/26/2024Sex and Gender InformationValueDate RecordedSex Assigned at BirthNot on fileLegal WpoEbtrkn24/06/2024 9:48 AM EDTGender IdentityNot on fileSexual OrientationNot on filedocumented as of this encounter Last Filed Vital Signs Vital SignReadingTime TakenCommentsBlood Iavyyick119/7007/09/2025 1:41 PM EST Pulse--Temperature--Respiratory Rate--Oxygen Saturation--Inhaled Oxygen Concentration--Rzzqjh001 kg (286 lb 1.9 oz)07/09/2025 1:41 PM ESTHeight--Body Mass Index43. 2:39 PM EDTdocumented in this encounter Progress Notes * SHWETA Platt - 07/09/2025 1:20 PM EST Reason for Appointment: Patient ID: Chayo Ramires is a 35 y.o. female who presents for Routine Visit Patient presents today for Return OB appointment. MEDICATIONS Current Outpatient Medications Medication Instructions labetalol (NORMODYNE) 100 mg, Oral, Daily metroNIDAZOLE (Metrogel) 0.75 % vaginal gel Vaginal, Daily NIFEdipine XL (PROCARDIA XL) 60 mg, Oral, Twice a day (mid-day and evening), Take 1 tablet in the am. Do not crush, chew, or split. sertraline (ZOLOFT) 50 mg, Every 24 hours ALLERGIES No Known Allergies PROBLEMS Active Ambulatory Problems Diagnosis Date Noted Fallopian tube disorder 07/30/2024 PCOS (polycystic ovarian syndrome) 07/30/2024 induced hypertension, antepartum ([facility]) 04/25/2025 Vitamin D deficiency 05/23/2025 H/O pre-eclampsia in prior , currently ([facility]) 05/23/2025 Resolved Ambulatory Problems Diagnosis Date [...] nursing note reviewed. Exam conducted with a editor map present. Vitals: Estimated body mass index is 43.5 kg/m?? as calculated from the following: Height as of 06/11/24: 5' 8 . Weight as of this encounter: 286 lb 1.9 oz. BP: 130/70 Patient's last menstrual period was 12/26/2024. Assessment/Plan ICD-10-CM 1. 27 weeks gestation of ([facility]) Z3A.27 POCT urinalysis dipstick manually resulted 2. Second trimester ([facility]) Z34.92 POCT urinalysis dipstick manually resulted 3. H/O pre-eclampsia in prior , currently ([facility]) O09.299 4. Vitamin D deficiency E55.9 5. Chronic hypertension affecting ([facility]) O10.919 NIFEdipine XL (Procardia XL) 60 MG 24hr tablet 6. BV (bacterial vaginosis) N76.0 metroNIDAZOLE (Metrogel) 0.75 % vaginal gel B96.89 Assessment/Plan Return OB: Patient presents today for a routine obstetrics appointment. Patient is currently 27w6d . Patient states she is doing well but has complaints of being tired due to current . Patient has verbalizes frequent movement. labor precautions was discussed/given and patient was instructed to perform kick counts three times a day. Patient does have complaints of burningand odor with urination. UA in office is negative. She has history of BV. Pt declined cultures today. Patient advised script would be sent in for BV. Orders Placed This Encounter Procedures POCT urinalysis dipstick manually resulted Follow Up: Patient is to return to office in 2 week for routine OB appointment. Documented by Luz Marina Velez LPN on behalf of: SHWETA Platt documented in this encounter Plan of Treatment DateTypeDepartmentCare Team (Latest Contact Info)Bzdbzhhybcs79/03/2025 11:20 AM ESTRoutine NOMTrent HEAD [address] [place] [address] [place] [phone] Caesar Broderick, DO [address] [place] [address] [place] [address] 12/16/2025 3:00 PM EDTOffice Visit NOMTrent HEAD [address] [place] [address] [place] [address] Caesar Broderick, [address] [facility] [address] [place], [place] [address] documented as of this encounter Procedures Procedure NamePriorityDate/TimeAssociated DiagnosisCommentsPOCT URINALYSIS UWGAIGOAVbpoqke97/18/2025 1:46 PM EST 27 weeks gestation of ([facility]) Second trimester ([facility]) documented in this encounter Results * POCT urinalysis dipstick manually resulted (07/09/2025 1:46 PM EST)Component ValueRef RangeTest MethodAnalysis TimePerformed AtPathologist SignatureColor, UAYellowClarity, UAClearGlucose, UANegativeNegative - 2000(110) ++++ mg/dL Bilirubin, UANegativeNegative - 4(70) +++ mg/dLKetones, UANegativeNegative - 160(16) ++++ mg/dLSpec Grav, UA1.0101 - 1.03Blood, UANegativeNegative - 50 Surjit/mcLpH, UA6.05 - 9Protein, UANegativeNegative - 2000(20) ++++ mg/dL Urobilinogen, UA1.00.2 - 12 mg/dLLeukocytes, UANegativeNegative - 500+++ Kaleigh/mcLNitrite, UANegativeNegative - PositiveSpecimen (Source)Anatomical Location / LateralityCollection Method / VolumeCollection TimeReceived Time Urine07/09/2025 1:46 PM EST Narrative Authorizing ProviderResult TypeResult StatusBethany Grandin PAPOINT OF CARE TEST ENTER/EDIT ORDERABLESFinal Result documented in this encounter Visit Diagnoses Diagnosis 27 weeks gestation of ([facility]) Second trimester ([facility]) state, incidental H/O pre-eclampsia in prior , currently ([facility]) Vitamin D deficiency Chronic hypertension affecting ([facility]) BV (bacterial vaginosis) Unspecified vaginitis and vulvovaginitis documented in this encounter Care Teams Team MemberRelationshipSpecialtyStart DateEnd Date Judy Caal PCP - [facility]02/20/24documented as of this encounter
--- NOTE | 2025-07-12 | US_ITS ---
[address] [address] Patient Name: ELLEN MITCHELL MRN: [id number] date: 1990 Sex: F Assigned Patient Location: Current Patient Location: [facility] Accession/Order Number: [id number] Exam Date: 07/12/2025 09:56 Report Date: 07/12/2025 14:57 At the request of: ISRAEL LUNA DO Procedure: US OB growth OB growth ultrasound. Reason for exam:History of preeclampsia. Comparison:None Technique: Transabdominal imaging of the gravid uterus was obtained. Findings: Single live intrauterine measuring 29 weeks 1 day by anatomic measurements. Appropriate growth by dating. heart rate 1 39 bpm. Estimated weight is 1286 g. CHETAN is normal at 12.81 cm. Fetus position is cephalic at time of scanning. US/US OB growth Impression: Single live intrauterine 29 weeks 1 day by anatomic measurements. Appropriate growth. Impression dictated by: Mariusz Malloy Jr., D.O. 07/12/2025 2:57 PM Dictation Location: [place] [address] Electronically authenticated by: [id number] Y Date: 07/12/2025 14:57
--- NOTE | 2025-07-12 | US_ITS ---
The [address] [address] Patient Name: ELLEN MITCHELL MRN: [id number] date: 1990 Sex: F Assigned Patient Location: Current Patient Location: [facility] [place] Accession/Order Number: [id number] Exam Date: 07/12/2025 09:56 Report Date: 07/12/2025 14:56 At the request of: ISRAEL LUNA DO Procedure: US OB BPP w non-stress Biophysical profile. Reason for exam: History of preeclampsia COMPARISON: None TECHNIQUE: Transabdominal imaging of the gravid uterus was obtained. FINDINGS: The lpn care manager reports a BPP of 8 out of 8. CHETAN is normal at 12.8 cm. heart rate 159 bpm. US/US OB BPP w non-stress IMPRESSION: BPP 8 out of 8. Impression dictated by: Mariusz Malloy Jr. DMeghanOMeghan 07/12/2025 2:56 PM Dictation [facility] Electron[facility] authenticated by: [id number] Y Date: 07/12/2025 14:56
--- OUTSIDE RECORDS SUMMARY | 2025-07-12 09:54 | XMS_ITS | Encounter Summary ---
Author Organization [facility] Address [address] [place] [address] Care Team Providers Care Trackwalker Name Role Phone Judy Caal Unavailable Unavailable Encounter Details DateTypeDepartmentCare Team (Latest Contact Info)Ajlaebfviay89/11/2025Patient Outreach [facility] [address] [place] [phone] Bethany Sheehan LPN [address] [place] [address] Social History Tobacco UseTypesPacks/DayYears UsedDateSmoking Tobacco: Never AssessedPHQ-2 AnswerDate RecordedPatient Health Questionnaire-2 Fgwoo13109/01/2024 Estimated Date of LwzjwlleTwspaweaDbn86/11/2026Based on last menstrual period of 12/26/2024Sex and Gender InformationValueDate RecordedSex Assigned at BirthNot on fileLegal CcqQmsncn12/06/2024 9:48 AM EDTGender IdentityNot on fileSexual OrientationNot on filedocumented as of this encounter Functional Status * Over the past 2 weeks, how often have you been bothered by any of the following problems?QuestionAnswerDate of AssessmentAuthorLittle interest or pleasure in doing thingsNot at all07/02/2025 12:18 PM Bethany Langford LPN Feeling down, depressed, or hopelessNot at all07/02/2025 12:18 PM Bethany Langford LPNPatient Health Questionnaire-2 Alhpg00309/01/2024 12:18 PM Bethany Langford LPN documented as [...] Plan of Treatment DateTypeDepartmentCare Team (Latest Contact Info)Dtrhphqyqot65/03/2025 11:20 AM ESTRoutine [facility]OM[facility]rent HEAD [address] [place] [address] [place] [address] Caesar Broderick, DO [address] [facility] [address] [place], [facility] 12/16/2025 3:00 PM EDTOffice Visit NOMTretn HEAD [address] [place] [address] [place] [address] Caesar Broderick, DO [address] [facility] [place] [address] documented as of this encounter Visit Diagnoses Not on filedocumented in this encounter Care Teams Team MemberRelationshipSpecialtyStart DateEnd Date Judy Caal PCP - [facility]02/20/24documented as of this encounter
--- OUTSIDE RECORDS SUMMARY | 2025-07-12 09:54 | XMS_ITS | Clinical Summary ---
Author Organization [facility] tem Address [id number] [address] [place] [address] Care Team Providers Care Tire Fabric Inspector Name Role Phone Services, [facility] Primary Care Provider Allergies [...] tablet Discontinued Active Problems ProblemNoted DateDiagnosed DateHeart jivqyzgjpion61/23/2024Estimated Date of UrgkofntEyagknytZjh49/11/2026ased on last menstrual period of 12/26/2024 Encounters DateTypeDepartmentCare QhxrJgtjxucmqaf76/28/2025 2:00 PM EDTTelemedicine Maternal- Medicine at [address] [phone] Yordy Cruz MD Chronic hypertension affecting (Primary Dx); 20 weeks gestation of ; Anxiety disorder affecting , antepartum; Acute palmoplantar pustular psoriasis; Severe obesity due to excess calories affecting , antepartum (CMS-HCC) 06/18/2025 7:48 AM EDT - 06/18/2025 11:59 PM EDTHospital Encounter [facility]ound [address] [place] [phone] Acute palmoplantar pustular psoriasis; Chronic hypertension affecting ; Severe obesity due to excess calories affecting , antepartum ([facility]); Hypertension affecting in second trimester Discharge Disposition: Home06/16/20251725Ppxckq04/03/2025Orders Only Maternal- Medicine at [facility] [address] [place] [phone] Bethany Lundy LPN Acute palmoplantar pustular psoriasis; Chronic hypertension affecting ; Severe obesity due to excess calories affecting , antepartum ([facility]); Hypertension affecting in second jykkezwor59/03/2025Orders Only Maternal- Medicine at [place] [address] [place] [phone] Nikkie, Bethany, BRUSHER Acute palmoplantar pustular psoriasis (Primary Dx); Chronic hypertension affecting ; Severe obesity due to excess calories affecting , antepartum ([facility]); Hypertension affecting in second fgltdndja08/26/2025 9:00 AM EDTOffice Visit Maternal- Medicine at [facility] [address] [place] [phone] Clair Hare MD Hamilton, Ira, MD Chronic hypertension affecting (Primary Dx); Acute palmoplantar pustular psoriasis; Severe obesity due to excess calories affecting , antepartum ([facility]); 20 weeks gestation of ljowzdptf52/26/2025 7:12 AM EDT - 05/17/2025 11:59 PM EDT Hospital Encounter [facility] US Imaging [address] [place] [phone] Hypertension affecting in second trimester Discharge Disposition: Home05/17/2025Results Follow-Up Maternal- Medicine at [place] [address] [place] [phone] Yordy Cruz MD B-type natriuretic dqoxjmk8505/17/2025Orders Only Maternal- Medicine at [place] [address] [place] [address] Bethany Lundy BRUSHER Acute palmoplantar pustular psoriasis (Primary Dx); Chronic hypertension affecting ; Severe obesity due to excess calories affecting , antepartum ([facility]); Hypertension affecting in second edzmwjpvp77/24/6777Xoiacx12/08/2025 6:45 PM EDT - 04/29/2025 7:24 PM EDTEmergency [facility] Emergency [address] [place] [place] [address] Tian Rodriguez MD Laceration of right thumb without foreign body without damage to nail, initial encounter (Primary Dx) Discharge Disposition: Home04/29/20253814Ykbymo76/02/2025Orders Only Maternal- Medicine at [facility] [address] [place] [phone] Ref Prov, Not In System 04/23/2025bstract Maternal- Medicine at [facility] [address] [place] [phone] Yordy Cruz MD 04/19/2025Orders Only Maternal- Medicine at [facility] [address] [place] [phone] Joann Moise RN Hypertension affecting in second [...] money to get more.Never True05/17/2025Estimated Date of EdfnsulvJvqdlnhwLtj92/11/2026Based on last menstrual period of 12/26/2024Sex and Gender InformationValueDate RecordedSex Assigned at BirthNot on fileLegal Sex Hhtcle2809/30/2022 2:11 PM ESTGender IdentityNot on fileSexual OrientationNot on file Last Filed Vital Signs Vital SignReadingTime TakenCommentsBlood Jhlpbjtl887/8409 7:51 AM EDT Rzafl215905/17/2025 7:51 AM SEMXzwhnhyucbu06.1 ??C (98.7 ??F)04/29/2025 6:26 PM EDTRespiratory Figs317504/29/2025 6:26 PM EDTOxygen Gefnpeffli85%04/29/2025 6:26 PM EDTInhaled Oxygen Concentration--Tzxgey794.1 kg (282 lb 8 oz)05/17/2025 7:51 AM BPPHrbeso621.7 cm (5' 7.99 )05/17/2025 7:51 AM EDTBody Mass Index42.96 05/17/2025 7:51 AM EDT Plan of Treatment DateTypeDepartmentCare Team (Latest Contact Info)Hdrekwmyaav42/09/2025 2:00 PM ESTOffice Visit Maternal- Medicine at [facility] [address] [place] [address] Yordy Cruz MD [address] [facility] [address] [place] [address] Health MaintenanceDue DateLast DoneCommentsDepression Uixelvnxf77/29/2004Adult BMI Follow Up Plan2010DTaP,Tdap and Td Vaccines (1 - Tdap)2011 Influenza Twqivvj6104/22/2025RSV ( or age 60+ yrs) (1 - Risk 1- dose series)08/07/2025dult BMI Ehcbfikzb83Tobacco Screening Pap Smear, 11/23/2022, 11/23/2022, Additional history exists Medical Devices Not on file Procedures Procedure NamePriorityDate/TimeAssociated DiagnosisCommentsUS M OB FOLLOW-UP, 1 OHMLSYunjcxm84/28/2025 9:09 AM EDT 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 Severe obesity due to excess calories affecting , antepartum ([facility]) Hypertension affecting in second trimester B-TYPE NATRIURETIC CCUEWTNThqawik84/26/2025 9:54 AM EDT Chronic hypertension affecting 20 weeks gestation of [facility] COMPREHENSIVE ANATOMIC VKDPIIXsawivn30/26/2025 9:10 AM EDT Hypertension affecting in second trimester UNLISTED LAB OCGUQinzarz26/26/2025 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 Severe obesity due to excess calories affecting , antepartum (CMS-HCC) Hypertension affecting in second trimester PM ED LACERATION YTMLMJFwjighd29/08/2025 6:52 PM EDT URIC BOSLUcopyer41/27/2025 1:11 PM WGYBNLGtngljh19/27/2025CREATININE, SERUM Mccjwzx4904/17/2025PROTIME & FMKLfzqyrw90/27/6302BHPGNrmubvg69/27/2025 CBC (NO DIFF)Wanvjeg4004/17/2025 PAP XVILVPdlzqye20/04/2023 5:20 AM EDT Encounter for screening for malignant neoplasm of cervix Encounter for screening for human papillomavirus (HPV) from Last 3 Months or Most Recently Relevant to Health Maintenance Results * [facility] OB FOLLOW-UP, 1 FETUS (06/18/2025 9:09 AM EDT) Only the most recent of2 resultswithin the time period is included. Anatomical RegionLateralityModalityOB-GYNUltrasoundSpecimen (Source)Anatomical Location / LateralityCollection Method / VolumeCollection TimeReceived Time 06/18/2025 8:05 AM EDT Narrative 06/18/2025 9:41 AM EDT NAME: ??PAULA HUGHES : 1990 SEX: F Accession Number: [id number] ORDERING PHYSICIAN: YORDY CRUZ REFERRING PHYSICIAN: ISRAEL LUNA Coding Procedures ? 10608: Ultrasound, uterus, real time with image documentation, follow up,transabdominal ? approach per fetus Indication Screening for follow-up survey, Anxiety , Depression, Obesity in , History of gestationalhypertension, Obesity in , Chronic hypertension affecting . History OB History ? 2. Para 1 ? Q5H8B2P0 Maternal Assessment Physical Exam ??Height 173 cm, [...] (oz) ? 15 oz EFW by: ?Hadlock (UXM-DJ-KJ-FL) Extended Tibia ??37.8 mm 24w 2d 27% Gavino Datawarehouse Developer ? 4.7 mm CM ? 4.4 mm [...] Thorax RVOT view. LVOT view. 3-vessel view. 0-iybrhr-aiqnlhe view. ? Right lung. Left lung. Abdomen [...] HUGHES : 1990 SEX: F Accession Number: [id number] ORDERING PHYSICIAN: YORDY CRUZ REFERRING PHYSICIAN: ISRAEL LUNA Coding Procedures 02115: Ultrasound, uterus, real time with image documentation, follow up, transabdominal approach per fetus Indication Screening for follow-up survey, Anxiety , Depression, Obesity in , History of gestational hypertension, Obesity in , Chronic hypertension affecting . History OB History 2. Para 1 R9X4K2P0 Maternal Assessment Physical Exam Height 173 cm, [...] EFW (oz) 15 oz EFW by: Hadlock (OHB-VU-SW-FL) Extended Tibia 37.8 mm 24w 2d 27% Gavino Datawarehouse Developer 4.7 mm CM 4.4 mm 8% Nicolaides [...] Thorax RVOT view. LVOT view. 3-vessel view. 0-csbrbp-plrfctcvgnx. Right lung. Left lung. Abdomen Abdom. wall. [...] as necessary. Authorizing ProviderResult TypeResult Araceli Cruz MDOKLAHOMA HOSPITAL ASSOCIATION US ORDERABLES Final Result * B-type natriuretic peptide (05/17/2025 9:54 AM EDT)ComponentValueRef RangeTest MethodAnalysis TimePerformed AtPathologist IwqazbqhbAQE28<=100 pg/mL05/17/2025 11:13 AM [facility] LABORATORYSpecimen (Source)Anatomical Location / LateralityCollection Method / VolumeCollection TimeReceived Time BloodVenous blood / UnknownVenipuncture / Odarwai0205/17/2025 9:54 AM EDT 05/17/2025 9:54 AM EDT Narrative Authorizing ProviderResult TypeResult Araceli YOU BLOOD ORDERABLES Final ResultPerforming OrganizationAddressCity/State/ZIP CodePhone Number [facility] [address] [place] [address], * Unlisted Lab Test (05/17/2025)ComponentValueRef RangeTest MethodAnalysis [...] ??Infection and pain ??Alternatives discussed: ??No treatment Morrison protocol: ??Procedure explained and questions answered to [...] APTT (04/17/2025)ComponentValueRef RangeTest MethodAnalysis TimePerformed At Pathologist WkhmtliehWCJI45.5MANUALLY TRANSCRIBED RESULTSSpecimen (Source) Anatomical Location / LateralityCollection Method / VolumeCollection Time Received TimeBloodVenous blood / Epdbonf5904/17/2025 Narrative Authorizing ProviderResult TypeResult StatusNot In System [...] diff (04/17/2025)ComponentValueRef RangeTest MethodAnalysis Time Performed AtPathologist FnhnwhkrdHptmioeucb44.9MANUALLY TRANSCRIBED RESULTS Dnruxqfpye80.4MANUALLY TRANSCRIBED RESULTSRbc Mcv (Fl) By Automated Count93.2 MANUALLY TRANSCRIBED AXPOTPIAzflltfsn283WOZHBYSP TRANSCRIBED RESULTSSpecimen (Source)Anatomical Location / LateralityCollection Method / VolumeCollection TimeReceived TimeBloodVenous blood / Unknown Narrative Authorizing ProviderResult TypeResult StatusNot In System Ref ProvLAB BLOOD ORDERABLESFinal ResultPerforming OrganizationAddressCity/State/ZIP CodePhone Number MANUALLY TRANSCRIBED RESULTS * BUN (04/17/2025)Specimen (Source)Anatomical Location / LateralityCollection Method / VolumeCollection TimeReceived TimeBloodVenous blood / Unknown Narrative Authorizing ProviderResult TypeResult StatusNot In System YastLAB BLOOD ORDERABLESEdited Result - FinalPerforming OrganizationAddressCity/State/ZIP Code [...] Narrative COPATH - 11/24/2022 1:05 PM EDT [facility] ? [address] [place] [address] ? [place] [address] ? Gynecologic Cytology Consultation ? Patient Name:ELLEN RAMIRESMeghan:1990 (Age: 32)Gender:FTaken:11/23/2022Reported:11/24/2022hysician(s):Bethany Raymundo REINSURANCE ACCOUNTANT ([phone])Copy To: Rec. #:[id number]: #[phone] [id number] Final Cytologic Interpretation ThinPrep Pap Test (Cervical): Satisfactory for evaluation. A transformation zone component is present. NEGATIVE FOR INTRAEPITHELIAL LESION OR MALIGNANCY. ?? jja/11/24/2022 Interpretation performed at [facility], [address] [place] [address], License number: [id number]. Electronically Signed Out By ?ZORA Walter(ASCP) Date of Last Menstrual Period: ? (None Given) Other Clinical Conditions: Z12.4 Screening for malignant neoplasm of cervix Z11.51 Screening for HPV Source of Specimen ??ThinPrep Pap Test (Cervical) ? Thin Prep Pap ([employer]OCKER) Fee Code(s): ?? G0145 Authorizing ProviderResult TypeResult StatusAmy Meliza Raymundo REHAB NURSE-REINSURANCE ACCOUNTANT PATHOLOGY/CYTOLOGY ORDERABLESFinal ResultPerforming OrganizationAddress City/State/ZIP CodePhone Number COPATH from Last 3 Months or Most Recently Relevant to Health Maintenance Insurance * Guarantor: Ellen Ramires TypeRelation to PatientDate of BirthPhone Billing AddressPersonal/FafbybAefs1990 [address] [address] Care Teams Team MemberRelationshipSpecialtyStart DateEnd Date Services, [facility] [address] [place], [place] PCP - GeneralFamily Medicine11/03/24
--- OUTSIDE RECORDS SUMMARY | 2025-07-12 09:54 | XMS_ITS | Patient Health Record ---
Author Organization [facility] vices Address [address] [place], [place] [id number] Care Team Providers Care Enrollment Advisor Name Role Phone Sabiha Aviles Primary Care Provider Srinivas Merary Unavailable [phone] Noelle Chris Unavailable [phone] Judy Yepez Unavailable [phone] Allergies No Known Allergies Results Component Value Reference Range Flag Notes AFP, Serum, Open Spina Bifid a Reviewed date:05/26/2025 02:17:58 PM Interpretation: Performing Lab: Notes/Report: , [facility]/ N N N N N 282 1 N 9 2 [id number] LMP N N Results Report . Test Results:*Screen Negative*.Gest. Age on Collection Date21.1. weeksGestat. Age Based OnLMP. Recalculations are not recommended when gestational dating by LMP and ultrasound are within 10 days. Maternal Age At EDD33.5. yrRaceCaucasian.Dfsjsk995. lbsInsulin Dep DiabetesNo. Multiple GestationNo.AFP Value38.2. ng/mLAFP MoM0.85.OSBR Risk 1 [id number]. InterpretationComment. Interpretation: Screen Negative This result is [...] Customer Services to discuss available options. The [employer] recommends amniocentesis be offered to women age 35 and older. Comment:Comment. Gema Ortez, Ph.D., [facility] Director References: Available Upon Request. Multiples Of Median Cutoffs For AFP Elevations Kumar 2.5 Black 2.8 IDD 2.0 Twins 4.5 Abbreviation Definitions IDD - Insulin Dep Diabetes OSBR - Open Spina Bifida Risk For further inquiries contact [facility] at [phone]. This test was developed and its performance characteristics determined by [facility]. It has not been cleared or approved by the Food and Drug Administration. Performed at: - [facility] [address] [place], [place] [address] Pipeline Controller: Jesus Saleh [facility], Phone: [phone] Performing Lab:see [facility]Good [facility] LBComplete Blood Count Auto Diff Reviewed date:07/04/2025 12:45:54 PM Interpretation: Performing Lab: Notes/Report: , [facility] Blood Count17.34.0-11.0 10 3/uLHRed Blood Count3.74 4.20-5.40 10 6/xUARisqlpwczb82.812.0-16.0 g/yHYOvuybfgauw39.036.0-48.0 %LMean Corpuscular Lzliso76.681.0-99.0 fLNMean Corpuscular Oozxupgclf04.626.7-34.0 pgN Mean Corpuscular HGB Conc33.729.9-35.2 g/dLNRed Cell Distribution Width13.111.0- 15.0 %NPlatelet Ukqqz649604-420 10 3/uLNMean Platelet Kndioo89.49.5-13.5 fLN Neutrophils Percent Auto84.243.0-75.0 %HLymphocytes Percent Auto10.020.5-60.0 %L Monocytes Percent Auto3.01.7-12.0 %NEosinophils Percent Auto1.60.9-7.0 %N Basophils Percent Auto0.20.2-2.0 %NImmature Granulocytes Pct Auto1.00.0-0.5 %H Neutrophils Absolute Auto14.61.4-6.5 10 3/uLHLymphocytes Absolute Auto1.71.2-3.8 10 3/uLNMonocytes Absolute Auto0.50.3-0.8 10 3/uLNEosinophils Absolute Auto0.3 0.0-0.7 10 3/uLNBasophils Absolute Auto0.00.0-0.1 10 3/uLNImmature Granulocytes Abs Auto0.180.00-0.03 10 3/uLHPerforming Lab:see noteML - [facility] LBGlucose 1 Hour Reviewed date:07/04/2025 12:45:54 PM Interpretation: Performing Lab: Notes/Report: [facility] ,Glucose 1 Wbyd510<130 mg/dLHPerforming Lab:see noteML - [facility] LBGlucose Tolerance 3 Hour Reviewed date:07/07/2025 10:36:45 PM Interpretation: Performing Lab: Notes/Report: , [facility] Center[facility] Tolerance 3 Hour GLU FAST 94 (<95) Col: 07/06/25 0809 GLU 1HR 157 (<180) Col: 07/06/25 0917 GLU 2HR 107 (<155) Col: 07/06/25 1012 GLU 3HR 67 (<140) Col: 07/06/25 1120 Performing Lab:see noteML - [facility] LBComplete Blood Count Auto Diff Reviewed date:07/07/2025 10:36:45 PM Interpretation: Performing Lab: Notes/Report: , [facility] Count15.34.0-11.0 10 3/uLHRed Blood Count3.77 4.20-5.40 10 6/eLCRomaueliec17.712.0-16.0 g/gATKhzdxrjapb20.136.0-48.0 %LMean Corpuscular Toxljo16.181.0-99.0 fLNMean Corpuscular Tthmlzndak94.026.7-34.0 pgN Mean Corpuscular HGB Conc33.329.9-35.2 g/dLNRed Cell Distribution Width13.011.0- 15.0 %NPlatelet Qdtoi309776-935 10 3/uLNMean Platelet Rnbyyv65.59.5-13.5 fLN Neutrophils Percent Auto78.143.0-75.0 %HLymphocytes Percent Auto12.920.5-60.0 %L Monocytes Percent Auto4.61.7-12.0 %NEosinophils Percent Auto2.90.9-7.0 %N Basophils Percent Auto0.30.2-2.0 %NImmature Granulocytes Pct Auto1.20.0-0.5 %H Neutrophils Absolute Auto12.01.4-6.5 10 3/uLHLymphocytes Absolute Auto2.01.2-3.8 10 3/uLNMonocytes Absolute Auto0.70.3-0.8 10 3/uLNEosinophils Absolute Auto0.4 0.0-0.7 10 3/uLNBasophils Absolute Auto0.00.0-0.1 10 3/uLNImmature Granulocytes Abs Auto0.180.00-0.03 10 3/uLHPerforming Lab:see noteML - [facility] LBECG 12 lead Reviewed date:06/23/2025 10:27:35 PM Interpretation: Performing Lab: Notes/Report: Source Facility: [place] [address] Electrocardiograph Report Signed Patient: ELLEN RAMIRES MR#: [id number] : 1990 Acct:[id number] Age/Sex: 35 / F ADM Date: 06/20/25 Loc: ER Attending Dr: Ordering Physician: Vince Chadwick Date of Service: 06/20/25 Procedure(s): ECG 12 lead Accession Number(s): [id number] cc: 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 Measurements Intervals Wilbur Rate: 79 P: 43 WI: 130 QRS: 39 QRSD: 90 T: 8 QT: 398 QTc: 432 Interpretive Statements 1100 Sinus rhythm 4068 Nonspecific Twave abnormality 9130 borderline ECG No previous ECG available for comparison Electronically Signed On 06-21-2025 6:28:32 EDT by RANDOLPH MIXON M.D. Dictated By: RANDOLPH MIXON Signed By: 06/21/25 0629 DD/ 2215 TD/TT: Disability Counselor:EMILE Gomes, reflex to culture Reviewed date:06/23/2025 10:27:35 PM Interpretation: Performing Lab: Notes/Report: , [facility] UrineLT. YELLOWYELLOWClarity UrineCLEARCLEARSpecific [place] Urine1.0101.005-1.025pH Urine7.05.0-9.0Protein UrineNEGATIVENEG/TRACE mg/dLGlucose Urine UANEGATIVENEGATIVE mg/dLBilirubin UrineNEGATIVENEGATIVE Ketones UrineNEGATIVENEGATIVE mg/dLBlood UrineNEGATIVENEGATIVENitrite Urine NEGATIVENEGATIVEUrobilinogen Urine0.20.2-1.0 EU/dLLeukocyte Esterase Urine NEGATIVENEGATIVEWBC Urine0-2NONE SEEN #/HPFARBC Urine0-20-2 #/HPFBacteria Urine TRACENONE SEEN #/HPFAMucus UrineNONE SEENNONE SEENSquamous Epithelial Cell Urine FEWNONE/RARE #/LPFACrystals Seen?None SeenNone Seen #/HPFCast Seen?NONE SEENNONE SEEN #/LPFUrine Culture IndicatedNOPerforming Lab:see noteML - [facility] LBUA Culture/Micro if Indicated Reviewed date:06/23/2025 10:27:19 PM Interpretation: Performing Lab: Notes/Report: , [facility] UrineLT. YELLOWYELLOWClarity UrineCLEARCLEARSpecific [place] Urine<=1.0051.005-1.025ApH Urine6.05.0-9.0Protein UrineNEGATIVENEG/TRACE mg/dLGlucose Urine GB748MXEIWPGA mg/dLABilirubin UrineNEGATIVENEGATIVEKetones UrineNEGATIVENEGATIVE mg/dLBlood UrineNEGATIVENEGATIVENitrite UrineNEGATIVE NEGATIVEUrobilinogen Urine0.20.2-1.0 EU/dLLeukocyte Esterase UrineNEGATIVE NEGATIVEUrine Microscopic IndicatedNOPerforming Lab:see noteML - [facility] LBComplete Blood Count Auto Diff Reviewed date:06/23/2025 10:27:19 PM Interpretation: Performing Lab: Notes/Report: , [facility]White Blood Count14.64.0-11.0 10 3/uLHRed Blood Count3.69 4.20-5.40 10 6/pOOKnexcnpfbv50.512.0-16.0 g/lYHGnzegczemv52.236.0-48.0 %LMean Corpuscular Tdezsl20.781.0-99.0 fLNMean Corpuscular Bgcsuwmlqm63.226.7-34.0 pgN Mean Corpuscular HGB Conc33.629.9-35.2 g/dLNRed Cell Distribution Width12.911.0- 15.0 %NPlatelet Sfhie497472-813 10 3/uLNMean Platelet Bbfqdd52.49.5-13.5 fLN Neutrophils Percent Auto74.543.0-75.0 %NLymphocytes Percent Auto15.420.5-60.0 %L Monocytes Percent Auto6.71.7-12.0 %NEosinophils Percent Auto1.90.9-7.0 %N Basophils Percent Auto0.30.2-2.0 %NImmature Granulocytes Pct Auto1.20.0-0.5 %H Neutrophils Absolute Auto10.91.4-6.5 10 3/uLHLymphocytes Absolute Auto2.21.2-3.8 10 3/uLNMonocytes Absolute Auto1.00.3-0.8 10 3/uLHEosinophils Absolute Auto0.3 0.0-0.7 10 3/uLNBasophils Absolute Auto0.00.0-0.1 10 3/uLNImmature Granulocytes Abs Auto0.180.00-0.03 10 3/uLHPerforming Lab:see noteML - [facility] LBBasic Metabolic Panel Reviewed date:06/23/2025 10:27:19 PM Interpretation: Performing Lab: Notes/Report: [facility] ,Kxnism807442-488 mmol/LNPotassium3.33.5-5.1 mmol/SSYceteuox60797-385 mmol/LN Carbon Ouurkqf31.321.0-32.0 mmol/LNAnion Gap15.0Mzhyuqi03824-337 mg/dLHBlood Urea Nitrogen5.07.0-18.0 mg/dLLCreatinine0.570.55-1.02 mg/dLNEstimated GFR ( Claritza>60>=60 mL/min/1.73m 2Estimated GFR (Non- Meghana>60>=60 mL/min/1.73m 2BUN Creatinine Ratio8.1Gzzbbls1.78.5-10.1 mg/dLNPerforming Lab:see note - [facility] LBTotal Protein 24 Hour Urine Reviewed date:05/26/2025 02:26:35 PM Interpretation: Performing Lab: Notes/Report: , [facility] CenterTotal Protein Urine Random<6.0<=11.9 mg/dLPerforming Lab: [facility] noteMain [facility] LBCreatinine 24 Hour Urine Reviewed date:05/26/2025 02:26:35 PM Interpretation: Performing Lab: Notes/Report: [facility] ,Creatinine Urine Qedopr17.4120.00-300.00 mg/dLNTotal Volume 24 Hour Sswcg1979 Creatinine 24 Hour Vqddt1009.52236.00-1800.00 mg/24 hrHPerforming Lab:see noteMain Campus Medical Center LBURINALYSIS - REFLEX CULTURE/SENS Reviewed date:11/13/2024 11:59:49 AM Interpretation: Performing Lab: Notes/Report:PH6.55.0-8.0SP GRAVITY1.0061.005-1.030APPEARANCECLEARCLEARCOLOR YELLOWYELLOWPROTEINNEGATIVENEGATIVEGLUCOSENEGATIVENEGATIVEKETONESNEGATIVE NEGATIVEBILIRUBINNEGATIVENEGATIVEOCCULT BLOODNEGATIVENEGATIVELEUKO ESTERNEGATIVE NEGATIVENITRITENEGATIVENEGATIVEUROBILINOGEN0.2<2 mg/dL UNLESS OTHERWISE INDICATED, ALL TESTING PERFORMED AT: [employer] [address] [place] [address] MACHINE MAINTENANCE SUPERVISOR: BARBARA DASH M.D. CLIA NUMBER [id number] CAP ACCREDITATION AUID [id number] Urine Dip Reviewed date:11/12/2024 05:53:24 PM Interpretation: Performing Lab: Notes/Report: Bilirubin-Occult Xddag-Gbfbvrh-Iwhqabu-ZTZ-Lryarty-Fd9.0Protein-Specific [place] 1.010ColoryellowAppearanceclearLIPID PANEL WITH REFLEX TO DIRECT LDL Reviewed date:02/08/2025 11:13:42 AM Interpretation: Performing Lab: Notes/Report:QODZVZBALWV146183-606 mg/tEYKJTFQBODTKTC99327-843 mg/dLHVLDL-CHOL, LKKKOTIBVY68<30 mg/dLHHDL-CHOL45>=50 mg/dLLLDL-CHOL, LMNTHRBJYY61<130 mg/dL ADULT LDL CHOLESTEROL CLASSIFICATION <100mg/dL Optimal [...] AM Interpretation: Performing Lab: Notes/Report:TSH1.690.270-4.200 uIU/mL The [employer] [employer] (HUGO) recommends the following reference ranges for TSH levels during : First trimester: 0.1 to 2.5 mIU/L Second trimester: 0.2 to 3.0 mIU/L Third trimester: 0.3 to 3.0 mIU/L FREE T41.120.80-1.90 ng/dLCOMPREHENSIVE METABOLIC PANEL WITH GFR Reviewed date:02/08/2025 08:56:14 AM Interpretation: Performing Lab: Notes/Report:CGNDHMG7292-400 mg/wTLED19-02 mg/dLCALCIUM9.48.6-10.5 mg/dL CREATININE, BLOOD0.710.51-1.15 mg/dLeGFR (2020 CKD-EPI)116>59 mL/min/1.73m2 RALXYR485803-543 mmol/LPOTASSIUM4.43.5-5.4 mmol/AXRJXRJPG01054-316 mmol/XZK097 18-32 mmol/LANION AJO817-45 mmol/LT. BILIRUBIN0.2<1.3 mg/dLALK FVCC7301-460 U/L KDL-ZRCB176-38 U/PNPR-SSCU989-69 U/LT. PROTEIN6.56.0-8.3 g/dLALBUMIN4.23.5-5.2 g/dLCBC NO DIFF Reviewed date:02/08/2025 11:13:49 AM Interpretation: Performing Lab: Notes/Report:WBC13.83.6-11.0 THDS/CMMHRBC4.253.80-5.20 MILL/EBSQMP87.311.9-16.0 G/DLHCT40.035-47 %BWM8822-888 fLMCH31.326.0-33.0 byFDPK45.332.0-35.0 g/dlRDW12.8 11.2-14.8 %SSUYKROV676769-934 THOUS/CMMVITAMIN D 25 HYDROXY Reviewed date:02/08/2025 09:10:44 AM Interpretation: Performing Lab: Notes/Report:VITAMIN D, 25 ZJKIWVC94.630.0-100.0 ng/mLL 25-OH VITAMIN D INTERPRETATION Deficiency.... <20.0 ng/ml Insufficiency..20.0-29.0 ng/ml Sufficiency....30.0-100.0 ng/ml Possible Toxicity...>150 ng/ml UNLESS OTHERWISE INDICATED, ALL TESTING PERFORMED AT: [facility] [address] [place] [address] MACHINE MAINTENANCE SUPERVISOR: BARBARA DASH M.D. CLIA NUMBER [id number] CAP ACCREDITATION AUID [id number] Urine Microscopic Reviewed date:05/30/2025 09:54:53 AM Interpretation: Performing Lab: Notes/Report: , [facility] Urine0-2NONE SEEN #/HPFARBC Urine0-20-2 #/HPFBacteria UrineTRACENONE SEEN #/HPFAMucus UrineNONE SEENNONE SEENSquamous Epithelial Cell UrineFEWNONE/RARE #/LPFACrystals Seen?None SeenNone Seen #/HPFCast Seen?NONE SEENNONE SEEN #/LPFPerforming Lab:see noteML - [facility] LBUA Culture/Micro if Indicated Reviewed date:05/30/2025 09:54:53 AM Interpretation: Performing Lab: Notes/Report: [facility] ,Color UrineLT YELLOWYELLOWClarity UrineCLEARCLEARSpecific [place] Urine<=1.005 1.005-1.025ApH Urine7.05.0-9.0Protein UrineNEGATIVENEG/TRACE mg/dLGlucose Urine UANEGATIVENEGATIVE mg/dLBilirubin UrineNEGATIVENEGATIVEKetones UrineNEGATIVE NEGATIVE mg/dLBlood UrineNEGATIVENEGATIVENitrite UrineNEGATIVENEGATIVE Urobilinogen Urine0.20.2-1.0 EU/dLLeukocyte Esterase UrineTRACENEGATIVEAUrine Microscopic IndicatedYESPerforming Lab:see noteML - [facility] LB Reason For Referral No Information Medications Medication SIG (Take, Route, Frequency, Duration) Notes Start Date End Date Status Aspirin Adult Low Dose 81 MG Tablet Delayed Rele ase 1 tablet Orally Once a day ActiveLabetalol HCl 200 MG Tablet1 tablet Orally Twice a dayActivePrenatal vitaminActiveNIFEdipine ER 30 MG Tablet Extended Release 24 Hour1 tablet on an empty stomach Orally Once a dayActiveMagnesium 400 MG Tabletas directed Orally ActiveSertraline HCl 50 MG Tablet1 tablet Orally Once a day; Duration: 90 days 5ActiveAmoxicillin 500 MG Capsule1 capsule Orally every 8 hrs; Duration: 7 days5Active Social History Tobacco Use: Social History Observation Description Date Details (start date - stop date) Never Smoker NA - NA Sex Assigned At : Social History Observation Description Sex Assigned At Female Social History Social DeterminantsSocial InfoQuestionAnswerNotesPRAPAREDate Completed/Updated: 11/06/2024patient entered dataWhat is your current housing situation?I have housingpatient entered dataAre you worried about losing your housing?No patient entered dataWhat is the highest level of school that you have finished?More than high schoolpatient entered dataWhat is your 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 Check all that applyI do not have problems meeting my needsHas lack of transportation kept you from medical appointments, meetings, work or from getting things needed for daily living?NoHow often do you see or talk to people that you care about and feel close to? (For example: talkingto friends on the phone, visiting friends or family, going to pentecostal or club meetings)More than 5 times a weekpatient entered dataHow stressed are you? Stress is when someone feels tense, nervous, anxious, or can't sleep at nightbecause their mind is troubledQuite a bitpatient entered dataIn the past year have you spent more than 2 nights in a row in a custodial, mcfp, halfway center, orjuvenile correctional facility?Nopatient entered dataAre you a refugee?Nopatient entered dataWhat country are you from?[place] Statespatient entered dataDo you feel physically and emotionally safe where you currently live?Yespatient entered dataIn the past year, have you been afraid of your partner or ex-partner?Nopatient entered dataPRAPARE Score:4Sexual History:Social Info QuestionAnswerNotesFamily PlanningAre you or your partner planning on becoming in the next year if not already ?YesPCMH and UDS Demographics Social InfoQuestionAnswerNotesPrimary Care Medical Home QuestionsDo you have any barriers to learning?Nonepatient entered dataWhat is your preferred method of learning?Doing or practicingpatient entered dataHow often do you need to have someone help you read instructions?Neverpatient entered dataHousehold:Social InfoQuestionAnswerNotesHouseholdNumber of adults in household:1Number of children in household:1Drugs/Alcohol/Caffeine:Social InfoQuestionAnswerNotes DrugsHave you used drugs other than those for medical reasons in the past 12 months?NoCAGE-AID Questionnaire (2018 Edition)Have you ever felt that you ought to cut down on your drinking or drug use?Nopatient entered dataHave people annoyed you by criticizing your drinking or drug use?Nopatient entered data Have you ever felt bad or guilty about your drinking or drug use?Nopatient entered dataHave you ever had a drink or used drugs first thing in the morning to steady your nerves or to get rid of a hangover?Nopatient entered dataCAGE- AID Rhsnn5WcmrnkulrxkzniZlnnizxnOiyoygqxMtxxko:1-2 cups per daypopTobacco Use: Social InfoQuestionAnswerNotesTobacco Use/SmokingTobacco use:nonsmokerpatient entered dataAdditional DetailsCategorySocial InfoOptionsDetailsMiscellaneous: Occupation:works full-timeCulture/Language BarrierNoEducation LevelGrade 7-12 Barriers to LearningNoneLearning PreferenceDoing or practicingHow often do you need to have someone help you read instructionsNeverSafetyPatient feels safe in relationshipsYesDrugs/Alcohol/Caffeine:Do you drink alcohol?No Problems Problem Type SNOMED Code ICD Code Onset Dates Problem Status W/U Status Risk Notes Problem Exercises teaching, guidance, and counseling (104625623) Exercise counseling (Z71.82) ActiveconfirmedProblemMissed period (81545223)Missed period (N92.6)Active confirmedProblemVitamin D deficiency (56699370)Vitamin D deficiency (E55.9) ActiveconfirmedProblemBurning sensation of vagina (finding) (813759642)Vaginal burning (N94.9)ActiveconfirmedProblemAnxiety depression (438368688)Anxiety with depression (F41.8)ActiveconfirmedProblemDietary management surveillance (960960250)Dietary counseling (Z71.3)ActiveconfirmedProblemFemale infertility (7755718)Female fertility problem (N97.9)Activeconfirmed Vital Signs Heart Rate 95 /min 05/21/2025 Robert Shen 05/21/2025 01:17:11 PM EDT > Temperature 98.0 degrees Fahrenheit 05/21/2025 Dayron Banegas 05/21/2025 01:17:11 PM EDT > Respiratory Rate 18 /min 05/21/2025 Ac Dayron 05/21/2025 01:17:11 PM EDT > Height-cm 172.72 cm 05/21/2025 Robert Shen 05/21/2025 01:17:11 PM EDT > Oximetry 99 % 05/21/2025 Shen, Ser vando 05/21/2025 01:17:11 PM EDT > Blood pressure diastolic 85 mm Hg 05/21/2025 Jasmina dovinos, Dayron 05/21/2025 01:17:11 PM EDT > Weight-kg 128.82 kg 05/21/2025 Shen, Ser vando 05/21/2025 01:17:11 PM EDT > Height 68 in 05/21/2025 Shen, Ser vando 05/21/2025 01:17:11 PM EDT > Blood pressure systolic 141 mm Hg 05/21/2025 Vald ovlamar, Dayron 05/21/2025 01:17:11 PM EDT > Weight 284 lbs 05/21/2025 Shen, Ser vando 05/21/2025 01:17:11 PM EDT > BMI 43.18 kg/m2 05/21/2025 Shen, Ser vando 05/21/2025 01:17:11 PM EDT > Encounters Encounter Location Date Provider Diagnosis [address] [id number] [facility] F[facility].8 and [facility] discharge follow-up Z09 [address] [id number] [facility] [id number] [facility] Anxiety with depress [facility] F41.[address] [id number] 02/05/2025 Sabiha Traci Encounter for wellne ss examination Z00.00 ; Screening for cardiovascular condition Z13.6 ; Exercise counseling Z71.82 ; Nutritional counseling Z71.3 ; Screening for thyroid disorder Z13.29 and Vitamin D deficiency E55.9 [address] [place], [place] [id number] 05/21/2025 Judy Marleni Anxiety with depress ion F41.8 ; Left otitis media, unspecified otitis media type H66.92 ; 21 weeks gestation of Z3A.21 ; Severe obesity (BMI >= 40) E66.01 and BMI 40.0-44.9, adult Z68.41 [address] [place], [place] [id number] 04/26/2025 Noelle Chris Anxiety with depress ion F41.8 [address] [place], [place] [id number] 06/17/2025 Merary Guerreroood Assessments Encounter Date Diagnosis (ICD Code) Assessment [...] in 3 months or sooner if needed 02/05/2025Encounter for wellness examination (ICD-10 - Z00.00)The patient [...] either by phone, during a visit, or both.02/05/2025Screening for cardiovascular condition (ICD-10 - Z13.6) Based [...] minimize the worsening of any cardiovascular conditions. 04/26/2025nxiety with depression (ICD-10 - F41.8)05/21/2025Left otitis media, unspecified otitis media type (ICD-10 - H66.92) Both ears WNL upon examination Pt reports ongoing pain in L ear for 4 weeks, denies allergies, hx of otiti media in adult life andfeels similar RX sent at this time for Amoxicillin F/U PRN 09/30/2025Anxiety with depression (ICD-10 - F41.8) Depression stable. [...] better metabolism. 11/06/2024Hospital discharge follow-up (ICD-10 - Z09)02/05/2025Nutritional counseling (ICD-10 - Z71.3)The patient was counseled on appropriate nutritional diet choices that should be made daily. It wasencouraged that there should be 3 well balanced meals that occur daily with 1-2 healthy snacks thatmay occur in between those meals. Strong advisement was given to the patient to avoid all fast foods, fried foods, fatty foods, and greasy foods to alleviate any detrimental conditions in the future.The patient was encouraged to reach back out to the office if they find themselves unable to affordfresh fruits and vegetables for themselves or their family and be directed to local groups that would best help their dietary needs.05/21/2025Severe obesity (BMI >= 40) (ICD-10 - E66.01)05/21/2025MI 40.0-44.9, adult (ICD-10 - Z68.41)02/05/2025Screening for thyroid disorder (ICD-10 - Z13.29)02/05/2025Vitamin D deficiency (ICD-10 - E55.9) Plan Of Treatment Next Appt Details Provider Name:Judy Yepez , 08/20/2025 01:15:00 PM, [address] [place], [id number], Insurance Providers Payer Name Payer Address Payer Phone Subscriber Number Group Number Insured Name Patient Relationship to Insured Coverage Start Date Coverage End Date [facility] [address] [place] [address] [id number] Ellen Ramires Self - patient is the insured 3 Medicaid [facility] [facility] [address] [place], [place] [id number], Lauren Self - patient is the [id number] 2022 Medical (General) History Medical History History ICD Code anxiety depressionSurgical History Surgery Date(Month/Year) Agar teeth laparoscopy- endometriosis
--- OUTSIDE RECORDS SUMMARY | 2025-07-12 09:54 | XMS_ITS | Encounter Summary ---
Author Organization [facility] Address [address] [place] [address] Care Team Providers Care Special Duty Nurse Name Role Phone Judy Caal Unavailable Unavailable Encounter Details DateTypeDepartmentCare Team (Latest Contact Info)Yvwbegajiia51/18/2025amboo flowsheet LIANA HEAD [address] [place] [address] Bethany Simon PA [address] [place], [facility] Social History Tobacco UseTypesPacks/DayYears UsedDateSmoking Tobacco: Never AssessedPHQ-2 AnswerDate RecordedPatient Health Questionnaire-2 Asmfq13109/01/2024 Estimated Date of ZoaafjjcXvyegsmnRvz24/11/2026Based on last menstrual period of 12/26/2024Sex and Gender InformationValueDate RecordedSex Assigned at BirthNot on fileLegal UfuPmxqab21/06/2024 9:48 AM EDTGender IdentityNot on fileSexual OrientationNot on filedocumented as of this encounter Plan of Treatment DateTypeDepartmentCare Team (Latest Contact Info)Cijtmclqwxr70/03/2025 11:20 AM ESTRoutine LIANA HEAD [address] [place] [address] Caesar Broderick DO [address] [place], [place] [id number] 12/16/2025 3:00 PM EDTOffice Visit [facility] [address] [place] [phone] Caesar Broderick DO [address] [place] [address] documented as of this encounter Visit Diagnoses Not on filedocumented in this encounter Care Teams Team MemberRelationshipSpecialtyStart DateEnd Date Judy Caal [facility]/20/24documented as of this encounter
--- OUTSIDE RECORDS SUMMARY | 2025-07-12 09:54 | XMS_ITS | Clinical Summary ---
Author Organization [facility] Healthcare Address [address] [place] [address] Care Team Providers Care B Operator Name Role Phone Judy Caal Unavailable Unavailable Allergies No known active allergies Medications MedicationSigDispense QuantityRefillsLast FilledStart DateEnd DateStatus sertraline (Zoloft) 25 MG tablet Take 50 mg by mouth 1 (one) time each day at the same time5Active labetalol (Normodyne) 100 MG tablet Indications:HypertensionTake 1 tablet (100 mg) by mouth Daily 30 tablet 5Active NIFEdipine XL (Procardia XL) 60 MG 24 hr tablet Indications:Chronic hypertension affecting ([facility])Take 1 tablet (60 mg) by mouth at noon and 1 tablet (60 mg) in the evening. Take 1 tablet in the am. Do not crush, chew, or split. 30 tablet 6Active metroNIDAZOLE (Metrogel) 0.75 % vaginal gel Indications:BV (bacterial vaginosis)Insert into the vagina Daily for 5 days 70 g /5Active Procardia XL 30 MG 24 hr tablet Take 30 mg by mouth DailyDiscontinued NIFEdipine XL (Procardia XL) 60 MG 24 hr tablet Indications:Chronic hypertension affecting ([facility])Take 1 tablet (60 mg) by mouth Daily Take 1 tablet in the am. Do not crush, chew, or split. 30 tablet Discontinued(Dose adjustment) Active Problems ProblemNoted DateDiagnosed DateVitamin D zhygvvxrgp86/02/2025H/O pre-eclampsia in prior , currently ([facility])05/23/2025Pregnancy induced hypertension, antepartum ([facility])04/25/2025Fallopian tube qfmvyrdd30/09/2024 PCOS (polycystic ovarian syndrome)07/30/2024Estimated Date of Delivery JguvcsboOqz96/11/2026ased on last menstrual period of 12/26/2024 Encounters DateTypeDepartmentCare HiklYclevkwanmd88/18/2025 1:20 PM ESTRoutine NOMS Aman [facility] [place] [address] Bethany Simon PA 27 weeks gestation of ([facility]); Second trimester ([facility]); H/O pre-eclampsia in prior , currently ([facility]); Vitamin D deficiency; Chronic hypertension affecting ([facility]); BV (bacterial vaginosis)5Bamboo flowsheet NOM[facility] Amna Jerome [facility] [place] [address] Bethany Simon PA 5Clinisync Result Encounter NOMS External Department Unsolicited [place] Broderick DO 07/05/2025Telephone [facility] [address] [place] [address] [place] [address] Tsering Willingham MA 5Clinisync Result Encounter NOMS External Department Unsolicited [place] Broderick, 07/02/2025Patient Outreach [facility] [address] [place] [address] Bethany Sheehan LPN 06/24/2025 1:50 PM ESTRoutine NOM[facility] Aman Jerome [facility] [address] [place] Broderick, DO Second trimester ([facility]); 25 weeks gestation of ([facility]); H/O pre-eclampsia in prior , currently ([facility]); Vitamin D deficiency; Chronic hypertension affecting ([facility]); Diabetes mellitus napqlrtfb23/03/2025amboo flowsheet [facility] [address] [facility] [address] [place] Broderick DO 06/23/20257242Ibcfhv61/15/2025 8:50 AM EDTRoutine [facility] [address] [facility] [place] [address] Rosie Qiu NP Second trimester ([facility]); 23 weeks gestation of ([facility])06/05/2025amboo flowsheet [facility] [address] [facility] [address] Rosie Qiu NP 06/04/2025Patient Outreach [facility] [address] [place] [address] Bethany Sheehan LPN 05/31/2025bstract [facility] [address] [place] [address] Bethany Sheehan LPN 05/30/2025 3:20 PM EDTRoutine [facility] [address] [facility] [place] [address] Rosie Qiu NP Chronic hypertension affecting ([facility]) (Primary Dx); Second trimester ([facility]); 22 weeks gestation of ([facility])05/30/2025amboo flowsheet [facility] [address] [facility] [address] Rosie Qiu NP 05/29/20253132Cmzdzn54/07/2025Telephone [facility] [address] [facility] [address] Melanie Almaraz MA 05/23/2025 2:30 PM EDTRoutine [facility] [address] [facility] [address] Rosie Qiu, JEM Second trimester ([facility]); 21 weeks gestation of ([facility]); induced hypertension, antepartum ([facility]); Vitamin D deficiency; H/O pre-eclampsia in prior , currently ([facility])05/23/2025 Clinisync Result Encounter NOMS External Department Unsolicited [place] Broderick, DO 05/23/2025amboo flowsheet [facility] [address] [facility] [address] Rosie Qiu, JEM 05/22/20257234Celcsi62/29/2025bstract [facility] [address] [facility] [address] Tsering Willingham MA 05/17/2025External Result Encounter [facility] [address] [facility] [place] [address] [place] Broderick, 05/15/2025Refill [facility] [address] [facility] [address] [place] Broderick, DO Second trimester ([facility]); Gestational hypertension, antepartum ([facility])05/15/2025Telephone [facility] [address] [facility] [address] [place] Broderick, 04/26/2025bstract [facility] [address] [facility] [place] [address] Tsering Willingham MA 04/26/2025Telephone [facility] [address] [facility] [place] [address] Tsering Willingham MA 04/25/2025 11:10 AM EDTRoutine NOMS Aman [place] [facility] [address] [place] Broderick DO Screening, , for anatomic survey ([facility]); Second trimester ([facility]); 17 weeks gestation of ([facility]); Screen for STD (sexually transmitted disease); Need for maternal serum alpha-protein (MSAFP) screening ([facility]); induced hypertension, antepartum ([facility]); Vitamin D qwjulwndmu13/04/2025Bambfavian flowsheet NOM[facility] [place] [address] [place] Broderick DO 04/23/20254271Zbtama67/31/2025Clinisync Result Encounter NOMS External Department Unsolicited [place] Broderick, 5Clinisync Result Encounter NOMS External Department Unsolicited [place] Broderick, 04/11/2025 10:30 AM EDTRoutine N[facility] [address] [place] [address] [place] Broderick DO 15 weeks gestation of ([facility]); Second trimester ([facility]); Acute nonintractable headache, unspecified headache type; BP check; Gestational hypertension, antepartum ([facility]); induced hypertension, antepartum ([facility])04/11/2025amb flowsheet NOMS [place] [address] [place] Broderick DO from Last 3 Months Family History Medical HistoryRelationNameCommentsepilepsyBrotherDiabetesFatherHTNFather Pancreatic cancerMaternal GrandfatherhtnMotherRelationNameStatusCommentsBrother FatherMaternal GrandfatherMother Social History Tobacco UseTypesPacks/DayYears UsedDateSmoking Tobacco: Never AssessedPHQ-2 AnswerDate RecordedPatient Health Questionnaire-2 Zwmkl30909/01/2024 Estimated Date of EvewlxsdRlaipjjpNya20/11/2026Based on last menstrual period of 12/26/2024Sex and Gender InformationValueDate RecordedSex Assigned at BirthNot on fileLegal JqjUfoqjj99/06/2024 9:48 AM EDTGender IdentityNot on fileSexual OrientationNot on file Last Filed Vital Signs Vital SignReadingTime TakenCommentsBlood Ondbhlym672/7011 1:41 PM EST Pulse--Temperature--Respiratory Rate--Oxygen Saturation--Inhaled Oxygen Concentration--Odbbga890 kg (286 lb 1.9 oz)07/09/2025 1:41 PM RYYVppoqz716.7 cm (5' 8 )06/11/2024 2:39 PM EDTBody Mass Index43. 2:39 PM EDT Plan of Treatment DateTypeDepartmentCare Team (Latest Contact Info)Dlikaeuzcwp11/03/2025 11:20 AM ESTRoutine NOMTrent [facility] [address] [place] [address] [place] [address] Israel Broderick, [address] [place], [place] [address] 12/16/2025 3:00 PM EDTOffice Visit [facility] [address] [place] [address] [place] [address] Israel Broderick, [address] [place], [place] [address] Health MaintenanceDue DateLast DoneCommentsCOVID-19 Vaccine (2023- season) 2025Influenza Vaccine (#1)2025HPV/Pljmuu34//ervical Cancer Klsyhcacf17/21/2028Pap Smear/, 3Pneumococcal Vaccine: Pediatrics (0 to 5 Years) and At-Risk Patients (6 to 64 Years)Aged Out No longer eligible based on patient's age to complete this topic Procedures Procedure NamePriorityDate/TimeAssociated DiagnosisCommentsPOCT URINALYSIS ZQNCMCBXWsskjsr44/18/2025 1:46 PM EST 27 weeks gestation of ([facility]) Second trimester ([facility]) GLUCOSE TOLERANCE 3 BUPDXrpiuav99/15/2025 8:09 AM EST ALL CBC WITH AUTO LBEYXuesdsy86/15/2025 8:09 AM EST GLUCOSE 1 KXEAIcwepph73/13/2025 10:25 AM EST ALL CBC WITH AUTO ULDGVjltuqf00/13/2025 10:25 AM EST POCT URINALYSIS SSDQLVQFCxocbxp03/03/2025 1:51 PM EST Second trimester ([facility]) POCT URINALYSIS KQMCVFBCXvbivgn58/15/2025 9:03 AM EDT Second trimester ([facility]) POCT URINALYSIS XCUSPQILKnmaawe37/09/2025 3:24 PM EDT 22 weeks gestation of ([facility]) AFP, SERUM, OPEN SPINA XPTONZNlvotyo03/02/2025 2:30 PM EDT US OB 14+ WEEKS ANATOMY SCAN05/17/2025 4:39 PM EDT RECURRENT VAGINITIS (HTRX)Omiltec0004/25/2025 3:21 PM EDT POCT URINALYSIS MNHPQRVWVixrymx27/04/2025 11:38 AM EDT Second trimester ([facility]) TBH TOTAL PROTEIN 24 HOUR JASZNIvkqaaq82/31/2025 7:00 AM EDT ALL ECFFbxpwgk84/27/2025 1:21 PM EDT CCF TGKHmqsjfg98/27/2025 1:21 PM EDT ALL URIC SXMOPrquqkc37/27/2025 1:21 PM EDT TBH LGKHMNVQOEPsombay93/27/2025 1:21 PM EDT ALL PVOVylsyqx48/27/2025 1:21 PM EDT C[facility] OIHDSvmwobj67/27/2025 1:21 PM EDT SRMCOH PROTHROMBIN TIME INR W/O GHJCSrbbqni23/27/2025 1:21 PM EDT ALL CBC WITH AUTO FLBISqphyri61/27/2025 1:21 PM EDT POCT URINALYSIS BQHVXZFSDssoqzj51/21/2025 11:06 AM EDT 15 weeks gestation of ([facility]) Second trimester ([facility]) PAP QMEPRQjxdqod04/21/2025 12:00 AM EDTfrom Last 3 Months or Most Recently Relevant to Health Maintenance Results * POCT urinalysis dipstick manually resulted (07/09/2025 1:46 PM EST) Only the most recent of6 resultswithin the time period is included. ComponentValueRef [...] Location / LateralityCollection Method / VolumeCollection TimeReceived EqtuIpobq31/18/2025 1:46 PM EST Narrative Authorizing ProviderResult TypeResult StatusAmy Aurora [facility] OF CARE TEST ENTER/EDIT ORDERABLESFinal Result * GLUCOSE TOLERANCE 3 HOUR (07/06/2025 8:09 AM EST)ComponentValueRef RangeTest MethodAnalysis TimePerformed AtPathologist SignatureGLUCOSE TOLERANCE 3 HOUR mg/dLTBHComment: GLU FAST 94 (<95) Col: 07/06/25 0809 GLU 1HR 157 (<180) Col: 07/06/25 0917 GLU 2HR 107 (<155) Col: 07/06/25 1012 GLU 3HR 67 (<140) Col: 07/06/25 1120 Specimen (Source)Anatomical Location / LateralityCollection Method / Volume Collection TimeReceived Time07/06/2025 8:09 AM EST07/06/2025 8:10 AM EST Narrative [facility] - 07/06/2025 12:14 PM EST Authorizing ProviderResult TypeResult StatusCorey Davie DOLAB BLOOD ORDERABLES Final ResultPerforming OrganizationAddressCity/State/ZIP CodePhone Number [facility] TB * (ABNORMAL) ALL CBC WITH AUTO DIFF (07/06/2025 8:09 AM EST) Only the most recent of3 resultswithin the time period is included. ComponentValueRef RangeTest MethodAnalysis TimePerformed AtPathologist Signature TBH WBC15.3(H)4.0 - 11.0 10 3/uLTBHTBH RBC3.77(L)4.20 - 5.40 10 6/uLTBHTBH HGB 11.7(L)12.0 - 16.0 g/dLTBHTBH HCT35.1(L)36.0 - 48.0 %TBHTBH MCV93.181.0 - 99.0 fLTBHTBH MCH31.026.7 - 34.0 pgTBHTBH MCHC33.329.9 - 35.2 g/dLTBHTBH RDW13.011.0 - 15.0 %TBHTBH CUA598562 - 450 10 3/uLTBHTBH MPV10.59.5 - 13.5 fLTBHNEUTROPHILS PERCENT AUTO78.1(H)43.0 - 75.0 %TBHLYMPHOCYTES PERCENT AUTO12.9(L)20.5 - 60.0 % TBHMONOCYTES PERCENT AUTO4.61.7 - 12.0 %TBHTBH EO %2.90.9 - 7.0 %TBHBASOPHILS PERCENT AUTO0.30.2 - 2.0 %TBHIMMATURE GRANULOCYTES PCT AUTO1.2(H)0.0 - 0.5 %TBH NEUTROPHILS ABSOLUTE AUTO12.0(H)1.4 - 6.5 10 3/uLTBHLYMPHOCYTES ABSOLUTE AUTO2.0 1.2 - 3.8 10 3/uLTBHMONOCYTES ABSOLUTE AUTO0.70.3 - 0.8 10 3/uLTBHTBH EO #0.40.0 - 0.7 10 3/uLTBHBASOPHILS ABSOLUTE AUTO0.00.0 - 0.1 10 3/uLTBHIMMATURE GRANULOCYTES ABS AUTO0.18(H)0.00 - 0.03 10 3/uLTBHSpecimen (Source)Anatomical Location / LateralityCollection Method / VolumeCollection TimeReceived Time 07/06/2025 8:09 AM EST07/06/2025 8:10 AM EST Narrative [facility] - 07/06/2025 8:58 AM EST Authorizing ProviderResult TypeResult StatusCorey Davie DOCLINISYNCFinal Result Performing OrganizationAddressCity/State/ZIP CodePhone Number [facility] * (ABNORMAL) GLUCOSE 1 HOUR (07/04/2025 10:25 AM EST)ComponentValueRef RangeTest MethodAnalysis TimePerformed AtPathologist SignatureGLUCOSE 1 KEGM743(H)<130 mg/dLTBHSpecimen (Source)Anatomical Location / LateralityCollection Method / VolumeCollection TimeReceived Time07/04/2025 10:25 AM EST07/04/2025 10:33 AM EST Narrative [facility] - 07/04/2025 11:32 AM EST Authorizing ProviderResult TypeResult StatusCorey Davie DOLAB BLOOD ORDERABLES Final ResultPerforming OrganizationAddressCity/State/ZIP CodePhone Number ELISHANC [facility] * AFP, SERUM, OPEN SPINA BIFIDA (05/23/2025 2:30 PM EDT)ComponentValueRef Range Test MethodAnalysis TimePerformed AtPathologist SignatureRESULTSReport.TBHTEST RESULTS:*Screen Negative*.TBHGEST. AGE ON COLLECTION DATE21.1. weeksTBHGESTAT. AGE BASED ONLMP.TBHComment: Recalculations are not recommended when gestational dating by LMP and ultrasound are within 10 days. MATERNAL AGE AT EDD33.5. yrTBHRACECaucasian.ITFQXLTVP903. lbsTBHINSULIN DEP DIABETESNo.TBHMULTIPLE GESTATIONNo.TBHAFP VALUE38.2. ng/mLTBHAFP MOM0.85.TBHOSBR RISK 1 [id number].TBHINTERPRETATIONComment.TBHComment: Interpretation: Screen Negative This result is screen [...] Customer Services to discuss available options. ??The [employer] recommends amniocentesis be offered to women age 35 and older. COMMENT:Comment.TBHComment: Gema Ortez, Ph.D., [facility] Director References: Available Upon Request. Multiples Of Median Cutoffs ?For AFP Elevations Kumar ?? 2.5 ? Black ?2.8 IDD ? 2.0 ? Twins ?4.5 ?Abbreviation Definitions IDD - Insulin Dep Diabetes OSBR - Open Spina Bifida Risk For further inquiries contact [employer] [facility] at [phone]. This test was developed and its performance characteristics determined by [employer]. It has not been cleared or approved by the Food and Drug Administration. Performed at: ??[facility] [address] [place], [place] ??[id number] [employer]: [facility], located [facility], Phone: ??[phone] Specimen (Source)Anatomical Location / LateralityCollection Method / Volume Collection TimeReceived Time05/23/2025 2:30 PM EDT1 2:40 PM EDT Narrative [facility] - 05/25/2025 1:07 AM EDT N N LMP [id number] 2 9 N 1 282 N N N N N White/ Authorizing ProviderResult TypeResult StatusCorenitesh Broderick DOLAB BLOOD ORDERABLES Final ResultPerforming OrganizationAddressCity/State/ZIP CodePhone Number [facility] * US OB 14+ weeks anatomy scan (05/17/2025 4:39 PM EDT)Anatomical Region LateralityModalityBodyUltrasoundSpecimen (Source)Anatomical Location / LateralityCollection Method / VolumeCollection TimeReceived Time05/17/2025 4:39 PM EDT Narrative 05/17/2025 4:39 PM EDT THIS EXAM WAS PERFORMED AT [facility] NAME: ??PAULA HUGHES : 1990 SEX: F Accession Number: [id number] ORDERING PHYSICIAN: ISRAEL BRODERICK REFERRING PHYSICIAN: ISRAEL BRODERICK Coding Procedures ? 19813: Ultrasound, uterus, real time with image documentation, and maternal evaluation ? plus detailed anatomic examination, transabdominal approach;single or first gestation ? 40621: Ultrasound, uterus, real time with image documentation, transvaginal Indication Screening for Anatomic Survey , Screening for cervical length , Anxiety , Depression , Gestational hypertension without significant proteinuria , Obesity in , History of gestational hypertension. History OB History ? 2. Para 1 ? [id number] Maternal Assessment Physical Exam ??Height 173 cm, [...] (oz) ? 13 oz EFW by: ?Hadlock (SIB-NC-HY-FL) Extended Tibia ??23.0 mm 18w 1d 2% [...] Heart/Thorax: RVOT view. LVOT view. 3-vessel view. 9-okpygk-ecxjtdt view. Situs. Bicaval view. Cardiac position. ? [...] - 05/17/2025 THIS EXAM WAS PERFORMED AT [facility] NAME: PAULA HUGHES : 1990 SEX: F Accession Number: [id number] ORDERING PHYSICIAN: ISRAEL BRODERICK REFERRING PHYSICIAN: ISRAEL BRODERICK Coding Procedures 73331: Ultrasound, uterus, real time with image documentation, and maternal evaluation plus detailed anatomic examination, transabdominalapproach;single or first gestation 04075: Ultrasound, uterus, real time with imagedocumentation, transvaginal Indication Screening for Anatomic Survey , Screening for cervical length , Anxiety , Depression , Gestational hypertension without significant proteinuria , Obesity in , History of gestational hypertension. History OB History 2. Para 1 [id number] Maternal Assessment Physical Exam Height 173 cm, [...] EFW (oz) 13 oz EFW by: Hadlock (TAJ-PX-SS-FL) Extended Tibia 23.0 mm 18w 1d 2% [...] Heart/Thorax: RVOT view. LVOT view. 3-vessel view. 1-dypkiv-djmmvim view.Situs. Bicaval view. Cardiac position. Cardiac axis. [...] left ovarian cyst noted. Recommendations Please see [facility] documentation from today. The patient is scheduled in four to six week(s) to complete anatomicsurvey. Subsequent follow up or other follow up as clinically determined byprimary OB provider unless otherwise specified by MFM. Results forwarded to ordering provider so they can follow up with thepatient as necessary. Authorizing ProviderResult TypeResult StatusCorey Davie DOIMG OB US PROCEDURES Final Result * (ABNORMAL) RECURRENT VAGINITIS (HTRX) (04/25/2025 3:21 PM EDT)ComponentValue Ref RangeTest MethodAnalysis TimePerformed AtPathologist SignatureATOPOBIUM ERAJHAD700.961 - 24.689 ppm04/26/2025 6:40 AM EDTHealthTrackRx at [facility] ATOPOBIUM VAGINAENot Dqbuqlrj24.961 - 24.689 ppm04/26/2025 6:40 AM EDT [facility] LabPortBVAB 2,3 (BACTERIAL VAGINOSIS ASSOCIATED BACTERIA 2, 3); MOBILUNCUS SPP24.556(A)19.961 - 24.689 ppm04/26/2025 6:40 AM EDT [facility] LabPortBVAB 2,3 (BACTERIAL VAGINOSIS ASSOCIATED BACTERIA 2, 3); MOBILUNCUS SPPDetected(A)19.961 - 24.689 ppm04/26/2025 6:40 AM EDT [facility] LabPortCANDIDA ALBICANS, PARAPSILOSIS, BVEOPJKBGF738.000 - 30.347 ppm04/26/2025 6:40 AM EDTHealthTrackRx at LabPortCANDIDA ALBICANS, PARAPSILOSIS, TROPICALISNot Lxqcphts14.000 - 30.347 ppm04/26/2025 6:40 AM EDT [facility]PortCANDIDA AZMPZMZT230.000 - 31.618 ppm04/26/2025 6:40 AM EDTHealthTrackRx at LabPortCANDIDA GLABRATANot Hcirnkhc09.000 - 31.618 ppm 04/26/2025 6:40 AM EDTHealthTrackRx at LabPortCANDIDA SVLFLV917.000 - 30.873 ppm04/26/2025 6:[address] [facility] CenterCANDIDA KRUSEINot Detected 23.000 - 30.873 ppm04/26/2025 6:[address] [facility] CenterCHLAMYDIA KSFOMNKCNSM205.000 - 31.586 ppm04/26/2025 6:[address] [facility] CHLAMYDIA TRACHOMATISNot Cjneyhgt24.000 - 31.586 ppm04/26/2025 6:40 AM EDT [facility] CenterGARDNERELLA PTUSMCFRZ472.961 - 24.689 ppm04/26/2025 6:[address] [facility] CenterGARDNERELLA VAGINALISNot Qqoctubd91.961 - 24.689 ppm04/26/2025 6:[address] [facility] Medical CenterMEGASPHAERA (TYPES 1, 2)019.961 - 24.689 ppm04/26/2025 6:[address] [facility] MEGASPHAERA (TYPES 1, 2)Not Dhzuffgv44.961 - 24.689 ppm04/26/2025 6:40 AM EDT [facility] CenterNEISSERIA MRKBYOZPXWY092.000 - 32.587 ppm04/26/2025 6:[address] [facility] CenterNEISSERIA GONORRHOEAENot Qcsmxvof81.000 - 32.587 ppm04/26/2025 6:40 AM EDTHealthTrackRx at LabMajor HospitalTRICHOMONAS VAGINALIS0 23.000 - 31.995 ppm04/26/2025 6:40 AM EDTHealthTrackRx at LabMajor HospitalTRICHOMONAS VAGINALISNot Uoylqpfe72.000 - 31.995 ppm04/26/2025 6:[address] [facility] CenterMYCOPLASMA SCDLPTDUSU551.961 - 24.689 ppm04/26/2025 6:40 AM EDT [facility] CenterMYCOPLASMA GENITALIUMNot Jsqfinti43.961 - 24.689 ppm 04/26/2025 6:40 AM EDTHealthTrackRx at LabPortSpecimen (Source)Anatomical Location / LateralityCollection Method / VolumeCollection TimeReceived Time Bqhbuw7304/25/2025 3:21 PM EDT04/26/2025 1:52 AM EDT Narrative Authorizing ProviderResult TypeResult StatusCorey Davie DOLAB BLOOD ORDERABLES Final ResultPerforming OrganizationAddressCity/State/ZIP CodePhone Number [facility] [address] [place] [phone] * TBH TOTAL PROTEIN 24 HOUR URINE [...] AtPathologist SignatureCREATININE0.560.55 - 1.02 mg/dL TBHTBH EGFR-AF DJIBOUTIAN>60>=60 mL/min/1.73m 2TBHTBH EGFR-NON AF DJIBOUTIAN>60 >=60 mL/min/1.73m 2TBHSpecimen (Source)Anatomical Location / Laterality Collection Method / VolumeCollection TimeReceived Time04/17/2025 1:21 PM EDT 04/17/2025 1:22 PM EDT Narrative [facility] - 04/17/2025 1:56 PM EDT Authorizing ProviderResult TypeResult StatusCorey Davie DOCLINISYNCFinal Result Performing OrganizationAddressCity/State/ZIP CodePhone Number [facility] * SRMCOH PROTHROMBIN TIME INR W/O COUM [...] Davie DOCLINISYNCFinal Result Performing OrganizationAddressCity/State/ZIP CodePhone Number [facility] * [facility] AST (04/17/2025 1:21 PM EDT)ComponentValueRef RangeTest MethodAnalysis TimePerformed AtPathologist SignatureASPARTATE AMINO AQAWXQCIONV5600 - 37 U/L TBHSpecimen (Source)Anatomical Location / LateralityCollection Method / Volume Collection TimeReceived Time04/17/2025 1:21 PM EDT04/17/2025 1:22 PM EDT Narrative [facility] - 04/17/2025 1:56 PM EDT Authorizing ProviderResult TypeResult StatusCorey Davie DOCLINISYNCFinal Result Performing OrganizationAddressCity/State/ZIP CodePhone Number [facility] * [facility] APTT (04/17/2025 1:21 PM EDT)ComponentValueRef RangeTest MethodAnalysis TimePerformed AtPathologist SignaturePARTIAL THROMBOPLASTIN TIME26.522.3 - 36.2 secTBHSpecimen (Source)Anatomical Location / LateralityCollection Method / VolumeCollection TimeReceived Time04/17/2025 1:21 PM EDT04/17/2025 1:22 PM EDT Narrative [facility] - 04/17/2025 1:54 PM EDT Authorizing ProviderResult TypeResult StatusCorey Davie DOCLINISYNCFinal Result Performing OrganizationAddressCity/State/ZIP CodePhone Number [facility] * ALL URIC ACID (04/17/2025 1:21 PM EDT)ComponentValueRef RangeTest Method Analysis TimePerformed AtPathologist SignatureURIC ACID5.12.6 - 6.0 mg/dLTBH Specimen (Source)Anatomical Location / LateralityCollection Method / Volume Collection TimeReceived Time04/17/2025 1:21 PM EDT04/17/2025 1:22 PM EDT Narrative [facility] - 04/17/2025 1:56 PM EDT Authorizing ProviderResult TypeResult StatusCorey Davie DOCLINISYNCFinal Result Performing OrganizationAddressCity/State/ZIP CodePhone Number [facility] * ALL LDH (04/17/2025 1:21 PM EDT)ComponentValueRef RangeTest MethodAnalysis TimePerformed AtPathologist SignatureLACTATE [id number] - 234 U/LTBH Specimen (Source)Anatomical Location / LateralityCollection Method / Volume Collection TimeReceived Time04/17/2025 1:21 PM EDT04/17/2025 1:22 PM EDT Narrative CLINISYNC - 04/17/2025 1:56 PM EDT Authorizing ProviderResult TypeResult StatusCorey Davie DOCLINISYNCFinal Result Performing OrganizationAddressCity/State/ZIP CodePhone Number [facility] * ALL BUN (04/17/2025 1:21 PM EDT)ComponentValueRef RangeTest MethodAnalysis TimePerformed AtPathologist SignatureBLOOD UREA NITROGEN7.07.0 - 18.0 mg/dLTBH Specimen (Source)Anatomical Location / LateralityCollection Method / Volume Collection TimeReceived Time04/17/2025 1:21 PM EDT04/17/2025 1:22 PM EDT Narrative CLINISYNC - 04/17/2025 1:56 PM EDT Authorizing ProviderResult TypeResult StatusCorey Davie DOCLINISYNCFinal Result Performing OrganizationAddWest [facility] Hospitalty/State/ZIP CodePhone Number [facility] * Pap Smear (12/10/2024 12:00 AM EDT)Specimen (Source)Anatomical Location / LateralityCollection Method / VolumeCollection TimeReceived TimeSwabCervical swab / Unknown Narrative Authorizing ProviderResult TypeResult StatusFazio Nurse [facility] ObLAB CYTOLOGY ORDERABLESFinal ResultPerforming OrganizationAddressCity/State/ZIP CodePhone Number EXTERNAL LAB from Last 3 Months or Most Recently Relevant to Health Maintenance Insurance Care Teams Team MemberRelationshipSpecialtyStart DateEnd Date Judy Caal PCP - [facility]02/20/24
--- OUTSIDE RECORDS SUMMARY | 2025-07-12 09:54 | XMS_ITS | Clinical Summary ---
Author Organization [facility] Address [address] [place] [address] Phone Care Team Providers Care Jewish Thought Professor Name Role Phone June Trinidad LPN Unavailable Unavailable Allergies No known active allergies Medications MedicationSigDispense QuantityRefillsLast FilledStart DateEnd DateStatus metFORMIN (Glucophage) 500 mg tablet 1 tablet (500 mg).05/22/2024ctive Social History Tobacco UseTypesPacks/DayYears UsedDateSmoking Tobacco: NeverSmokeless Tobacco: Never Tobacco Cessation:Counseling Given: No Alcohol UseStandard Drinks/WeekCommentsNever0 (1 standard drink = 0.6 oz pure alcohol)PHQ-2AnswerDate RecordedPatient Health Questionnaire-2 Weghx428 CommentsUnknownSex and Gender InformationValueDate RecordedSex Assigned at BirthNot on fileLegal SkwNkzfpi15/06/2025 12:03 PM ESTGender IdentityNot on fileSexual OrientationNot on file Last Filed Vital Signs Vital SignReadingTime TakenCommentsBlood Wsqcmjji764/7805 10:52 AM EDT Uxcoj886601/03/2025 10:52 AM ZADTzmmrsszqwu92.6 ??C (97.8 ??F)01/03/2025 10:52 AM EDTRespiratory Rate--Oxygen Saturation--Inhaled Oxygen Concentration--Vkjvej650 kg (268 lb 9.6 oz)01/03/2025 10:52 AM YWVIthayp630.7 cm (5' 8 )01/03/2025 10:52 AM EDTBody Mass Index40.845 10:52 AM EDT Plan of Treatment Health MaintenanceDue DateLast DoneCommentsHIV Jyantdgfe1992Lipid Panel 1992MMR Vaccines (1 of 1 - Standard series)1993Hepatitis C Screening 2010Hepatitis B Vaccines (1 of 3 - 19+ 3-dose series)2011HPV/Cotest 2013DTaP/Tdap/Td Vaccines (1 - Tdap)2014HPV Vaccines (1 - 3-dose standard series)2019Influenza Vaccine (#1)2025OVID-19 Vaccine ( - season)2025early Adult Ltpimguu76/22/354151/ervical Cancer Xhvrlkatf04/21/2028Pap Smear12/10/381282/Zoster Vaccines (1 of 2) 2042HIB VaccinesAged OutNo [...] Ramires TypeRelation to PatientDate of BirthPhone Billing AddressPersonal/VvarlyZdtg1990 [address] [address] * Guarantor: Antoinette Ramires TypeRelation to PatientDate of BirthPhone Billing AddressPersonal/UqewvxVuhs1990 [address] [address] Care Teams Team MemberRelationshipSpecialtyStart DateEnd Date June Trinidad LPN Licensed Practical NurseReproductive Endocrinology and Infertility01/01/25
--- OUTSIDE RECORDS SUMMARY | 2025-07-12 09:54 | XMS_ITS | Encounter Summary ---
Author Organization [facility] Address [address] [place] [address] Care Team Providers Care Business Development Director Name Role Phone Judy Caal Unavailable Unavailable Encounter Details DateTypeDepartmentCare Team (Latest Contact Info)Vlscsrftkxj88/15/2025linisync Result Encounter [facility] External Department Unsolicited Caesar Broderick, [address] [place], [place] [phone] Social History Tobacco UseTypesPacks/DayYears UsedDateSmoking Tobacco: Never AssessedPHQ-2 AnswerDate RecordedPatient Health Questionnaire-2 Knqqt46509/01/2024 Estimated Date of SnfbhpesQzhrbfciFrl27/11/2026Based on last menstrual period of 12/26/2024Sex and Gender InformationValueDate RecordedSex Assigned at BirthNot on fileLegal WguFjmhkm64/06/2024 9:48 AM EDTGender IdentityNot on fileSexual OrientationNot on filedocumented as of this encounter Plan of Treatment DateTypeDepartmentCare Team (Latest Contact Info)Kbrdengcbzw91/03/2025 11:20 AM ESTRoutine [facility] [address] [place] [phone] Caesar Broderick DO [address] [place], [place] [id number] 12/16/2025 3:00 PM EDTOffice Visit [facility] [address] [place] [address] [place] [address] Caesar Broderick, DO [address] [place] [address] [place] [address] documented as of this encounter Procedures Procedure NamePriorityDate/TimeAssociated DiagnosisCommentsGLUCOSE TOLERANCE 3 TPXLSptlxdw71/15/2025 8:09 AM EST ALL CBC WITH AUTO BTZBTfbpvrt72/15/2025 8:09 AM EST documented in this encounter Results * GLUCOSE TOLERANCE 3 HOUR (07/06/2025 8:09 [...] ORDERABLES Final ResultPerforming OrganizationAddressCity/State/ZIP CodePhone Number CLINISYNC [facility] * (ABNORMAL) ALL CBC WITH AUTO DIFF (07/06/2025 8:09 AM EST)ComponentValueRef RangeTest MethodAnalysis TimePerformed AtPathologist SignatureTBH WBC15.3(H) 4.0 - 11.0 10 3/uLTBHTBH RBC3.77(L)4.20 - 5.40 10 6/uLTBHTBH HGB11.7(L)12.0 - 16.0 g/dLTBHTBH HCT35.1(L)36.0 - 48.0 %TBHTBH MCV93.181.0 - 99.0 fLTBHTBH MCH 31.026.7 - 34.0 pgTBHTBH MCHC33.329.9 - 35.2 g/dLTBHTBH RDW13.011.0 - 15.0 % TBHTBH OXS296231 - 450 10 3/uLTBHTBH MPV10.59.5 - 13.5 fLTBHNEUTROPHILS PERCENT AUTO78.1(H)43.0 - 75.0 %TBHLYMPHOCYTES PERCENT AUTO12.9(L)20.5 - 60.0 %TBHMONOCYTES PERCENT AUTO4.61.7 - 12.0 %TBHTBH EO %2.90.9 - 7.0 %TBHBASOPHILS PERCENT AUTO0.30.2 - 2.0 %TBHIMMATURE GRANULOCYTES PCT AUTO1.2(H)0.0 - 0.5 % TBHNEUTROPHILS ABSOLUTE AUTO12.0(H)1.4 - 6.5 10 3/uLTBHLYMPHOCYTES ABSOLUTE AUTO2.01.2 - 3.8 10 3/uLTBHMONOCYTES ABSOLUTE AUTO0.70.3 - 0.8 10 3/uLTBHTBH EO #0.40.0 - 0.7 10 3/uLTBHBASOPHILS ABSOLUTE AUTO0.00.0 - 0.1 10 3/uLTBH IMMATURE GRANULOCYTES ABS AUTO0.18(H)0.00 - 0.03 10 3/uLTBHSpecimen (Source) Anatomical Location / LateralityCollection Method / VolumeCollection Time Received Time07/06/2025 8:09 AM EST07/06/2025 8:10 AM EST Narrative CLINISYNC - 07/06/2025 8:58 AM EST Authorizing ProviderResult TypeResult StatusCorey Davie DOCLINISYNCFinal Result Performing OrganizationAddressCity/State/ZIP CodePhone Number CLINISYNC [facility] documented in this encounter Visit Diagnoses Not on filedocumented in this encounter Care Teams Team MemberRelationshipSpecialtyStart DateEnd Date Judy Caal PCP - [facility]02/20/24documented as of this encounter
--- OUTSIDE RECORDS SUMMARY | 2025-07-12 09:54 | XMS_ITS | Encounter Summary ---
Author Organization [facility] Address [address] [place] [address] Care Team Providers Care Hand Woven Carpet And Rug Mender Name Role Phone Judy Caal Unavailable Unavailable Encounter Details DateTypeDepartmentCare Team (Latest Contact Info)Clwxhwzaqxu70/13/2025linisync Result Encounter [facility] External Department Unsolicited Caesar Broderick, [address] [place], [place] [phone] Social History Tobacco UseTypesPacks/DayYears UsedDateSmoking Tobacco: Never AssessedPHQ-2 AnswerDate RecordedPatient Health Questionnaire-2 Lhysh70009/01/2024 Estimated Date of QxezjwngPiiwijetSyv96/11/2026Based on last menstrual period of 12/26/2024Sex and Gender InformationValueDate RecordedSex Assigned at BirthNot on fileLegal RyuAazoir08/06/2024 9:48 AM EDTGender IdentityNot on fileSexual OrientationNot on filedocumented as of this encounter Plan of Treatment DateTypeDepartmentCare Team (Latest Contact Info)Vkzmzwolacj85/03/2025 11:20 AM ESTRoutine [facility] [address] [facility] [place] [phone] Caesar Broderick DO [address] [place], [place] [phone] 12/16/2025 3:00 PM EDTOffice Visit [facility] [address] [place] [address] [place] [address] Caesar Broderick, DO [address] [place] [address] [place] [address] documented as of this encounter Procedures Procedure NamePriorityDate/TimeAssociated DiagnosisCommentsGLUCOSE 1 HOURRoutine 07/04/2025 10:25 AM EST ALL CBC WITH AUTO UYZCSayhzox00/13/2025 10:25 AM EST documented in this encounter Results * (ABNORMAL) GLUCOSE 1 HOUR (07/04/2025 10:25 AM EST)ComponentValueRef RangeTest MethodAnalysis TimePerformed AtPathologist SignatureGLUCOSE 1 ZECJ288(H)<130 mg/dLTBHSpecimen (Source)Anatomical Location / LateralityCollection Method / VolumeCollection TimeReceived Time07/04/2025 10:25 AM EST07/04/2025 10:33 AM EST Narrative CLINISYNC - 07/04/2025 11:32 AM EST Authorizing ProviderResult TypeResult StatusCorey Davie DOL BLOOD ORDERABLES Final ResultPerforming OrganizationAddressCity/State/ZIP CodePhone Number [facility] * (ABNORMAL) ALL CBC WITH AUTO DIFF (07/04/2025 10:25 AM EST)ComponentValueRef RangeTest MethodAnalysis TimePerformed AtPathologist SignatureTBH WBC17.3(H) 4.0 - 11.0 10 3/uLTBHTBH RBC3.74(L)4.20 - 5.40 10 6/uLTBHTBH HGB11.8(L)12.0 - 16.0 g/dLTBHTBH HCT35.0(L)36.0 - 48.0 %TBHTBH MCV93.681.0 - 99.0 fLTBHTBH MCH 31.626.7 - 34.0 pgTBHTBH MCHC33.729.9 - 35.2 g/dLTBHTBH RDW13.111.0 - 15.0 % TBHTBH EJL225038 - 450 10 3/uLTBHTBH MPV10.49.5 - 13.5 [...] Davie DOCLINISYNCFinal Result Performing OrganizationAddressCity/State/ZIP CodePhone Number [facility] documented in this encounter Visit Diagnoses Not on filedocumented in this encounter Care Teams Team MemberRelationshipSpecialtyStart DateEnd Date Judy Caal PCP - [facility]02/20/24documented as of this encounter
--- OUTSIDE RECORDS SUMMARY | 2025-07-12 09:54 | XMS_ITS | Encounter Summary ---
Author Organization [facility] Address [address] [place] [address] Care Team Providers Care Alliances Consultant Name Role Phone Judy Caal Unavailable Unavailable Encounter Details DateTypeDepartmentCare Team (Latest Contact Info)Sothvzfnjfh36/14/2025Telephone [facility] [address] [place] [address] Tsering Willingham MA Social History Tobacco UseTypesPacks/DayYears UsedDateSmoking Tobacco: Never AssessedPHQ-2 AnswerDate RecordedPatient Health Questionnaire-2 Jcpuc08509/01/2024 Estimated Date of QprkkkbsLevkcczuOun68/11/2026Based on last menstrual period of 12/26/2024Sex and Gender InformationValueDate RecordedSex Assigned at BirthNot on fileLegal EwtRibqvb05/06/2024 9:48 AM EDTGender IdentityNot on fileSexual OrientationNot on filedocumented as of this encounter Miscellaneous Notes * Telephone Encounter - Tsering Willingham MA - 07/05/2025 10:41 AM EST Pt advised of results and recommendations. PVU. Orders faxed to [facility] documented in this encounter Plan of Treatment DateTypeDepartmentCare Team (Latest Contact Info)Kfhlinhkqep88/03/2025 11:20 AM ESTRoutine [facility] [address] [place] [address] Caesar Brdoerick, DO [address] [facility] [address] [place] [address] 12/16/2025 3:00 PM EDTOffice Visit [facility] [address] [place] [phone] Caesar Broderick, DO [address] [facility] [address] [place], [place] [phone] NameTypePriorityAssociated DiagnosesOrder ScheduleGlucose tolerance, 3 hoursLab Routine [...]
--- OUTSIDE RECORDS SUMMARY | 2025-07-12 09:55 | XMS_ITS | CCD ---
Author Organization [facility] Care Team Providers Care Pest Controller Assistant Name Role Phone Pinky Singh Unavailable Judy Caal Unavailable Unavailable Unavailable Primary Care Provider Unavailabl e Services, [facility] Primary Care Provider Caesar Broderick DO Attending Provider Caesar Broderick Attending Unavailable Davie, Caesar Admitting Unavailable White TEST AND RESEARCH REACTOR OPERATOR, June A Unavailable Unavailable ROBBIE LOPEZ Attending Unavailable Services, [facility] Primary Care Provider SERVICES, [facility] Care Unava ilable MILLIE VILLAGRAN Attending Unavailable SERVICES, [facility] Care Unava ilable FRANCIE ABRAMS Attending Unavailable DAVIE, CAESAR R Referring Unavailable SERVICES, [facility] Care Unava ilable DAVIE, CAESAR R Referring Unavailable SERVICES, [facility] Care Unava ilable YORDY CRUZ Attending Unavailable DAVIE, CAESAR R Referring Unavailable SERVICES, [facility] Care Unava ilable DAVIE, CAESAR R Referring Unavailable SERVICES, [facility] Care Unava ilable YORDY CRUZ Attending Unavailable DAVIE, CAESAR R Referring Unavailable SERVICES, [facility] Care Unava ilable Services, [facility] Primary Care Provider DEWEY BRODERICKY Attending [...] 125 mg oral tablet (2 sources)Penicillin-class AntibacterialStart: 95-41-5041blyp 1 tablet by mouth twice dailyAmoxicillin-Pot Clavulanate 875-125 mg tablet Active 1 TAB PO Twice daily November 24, 2023 12:00amaspirin 81 mg delayed release oral tablet (4 sources)Platelet Aggregation Inhibitor, Nonsteroidal Anti-inflammatory Drug take 1 tablet by mouth in the morningaspirin 81 mg Take 1 tablet (81 mg total) by mouth in the morning. Activecholecalciferol 0.01 mg oral tablet (20 sources)Vitamin DStart: 97-33-0690lzdlhxxuyjikfuk 10 mcg (400 unit) tablet 2 tablets (800 Units total) in the morning. 01/26/2024 ActiveStart: 01-26-2024 End: 61-13-0008Lrzzgqmyddztrgi 10 MCG (400 UNIT) chewable tablet 1 (one) time each day at the same time Discontinued (Therapy completed) End: 22-28-2966kmys 2 tablets by mouth once dailyD-400 10 MCG (400 UNIT) tablet TAKE 2 TABLETS BY MOUTH ONCE DAILY FOR 30 DAYS 03/28/2025 Discontinuedclobetasol propionate 0.0005 mg/mg topical ointment (3 sources)CorticosteroidStart: 05-17-2025 End: 48-85-7142cyiammrmlX (TEMOVATE) 0.05 % ointment Indications: Acute palmoplantar pustular psoriasis , Chronic hypertension affecting , 20 weeks gestation of Apply a thin layer to the affected areas twice daily. 30 g 05/17/2025 05/31/2025 ActiveclomiPHENE citrate 50 mg oral tablet (3 sources)Estrogen Agonist/AntagonistStart: 11-12-2024 End: 84-54-8386glsb 2 tablets by mouth once dailyclomiPHENE (Clomid) 50 MG tablet Indications: Encounter for fertility planning , PCOS (polycystic ovarian syndrome) , Fallopian tube disorder Take 2 tablets (100 mg) by mouth Daily for 5 days 10 tablet 11/12/2024 11/17/2024 Activefluticasone propionate 0.05 mg/actuat metered dose nasal spray (4 sources)CorticosteroidStart: 11-24-2023 End: 25-99-0933hytufmtpuec (Flonase) 50 MCG/ACT nasal spray Daily 11/24/2023 04/10/2024 Discontinued (Other)Start: 38-51-8637kpub 1 spray(s) nasal route once dailyFluticasone Propionate 50 mcg/actuation spray,suspension Active 2 SPRAY INTRANASAL Daily November 24, 2023 12:00am administer into each nostril labetalol hydrochloride 100 mg oral tablet (14 sources)beta-Adrenergic BlockerStart: 06-24-2025 End: 10-06-8320buus 1 tablet by mouth once dailylabetalol (Normodyne) 100 MG tablet Indications: Hypertension Take 1 tablet (100 mg) by mouth Daily30 tablet 3 06/24/2025 07/24/2025 ActiveStart: 05-16-2025 End: 99-03-3069nvsq 1 tablet by mouth once at bedtimelabetalol (Normodyne) 200 MG tablet Indications: Second trimester (HHS-HCC) , Gestational hypertension, antepartum (HHS-HCC) TAKE 1 TABLET (200 MG) BY MOUTH IN THE MORNING AND AT BEDTIME 60tablet 2 05/16/2025 05/23/2025 Discontinued (Ineffective)Start: 04-11-2025 End: 62-57-0216skjb 1 tablet by mouth once in the morninglabetalol (Normodyne) 200 MG tablet Indications: Second trimester (HHS-HCC) , Gestational hypertension, antepartum (HHS-HCC) Take 1 tablet (200 mg) by mouth in the morning and 1 tablet (200mg) before bedtime. 60 tablet 04/11/2025 05/11/2025 Active End: 79-03-6241hvsh 1 tablet by mouth in the morning, then take 1 tablet by mouth at bedtimelabetaloL (NORMODYNE) 200 mg tablet Take 1 tablet (200 mg total) by mouth in the morning and 1 tablet (200 mg total) before bedtime. 05/17/2025 Discontinuedmagnesium oxide 400 mg oral tablet (15 sources)Start: 03-28-2025 End: 02-76-5322xota 1 tablet by mouth once dailymagnesium oxide (Mag-Ox) 400 MG tablet Indications: Second trimester (HHS-HCC) , Acute nonintractable headache, unspecified headache type Take 1 tablet (400 mg) by mouth Daily 30 tablet 6 03/28/2025 04/27/2025 ActivemetFORMIN hydrochloride 500 mg oral tablet (20 sources)BiguanideStart: 02-09-6598acsMEMBID (Glucophage) 500 mg tablet 1 tablet (500 mg). 05/22/2024 ActiveStart: 04-10-2024 End: 44-16-6169dwvz 1 tablet by mouth every twenty-four hours at mealtime metFORMIN XR (Glucophage-XR) 500 MG 24 hr tablet Indications: PCOS (polycystic ovarian syndrome) , Abnormal uterine bleeding (AUB) Take 1 tablet (500 mg) by mouth in the evening. Take with meals Do not crush, chew, or split. 30 tablet 11 04/10/2024 03/01/2025 Discontinued (Therapy completed) End: 60-58-2389jvuc 1 tablet by mouth once daily at breakfastmetFORMIN XR (GLUCOPHAGE XR) 500 mg 24 hr tablet Take 1 tablet (500 mg total) by mouth daily with breakfast. 05/17/2025 DiscontinuedNIFEdipine 30 mg osmotic 24 hr extended release oral tablet (20 sources)Dihydropyridine Calcium Channel BlockerStart: 42-56-1500fjkv 2 tablets by mouth every twenty-four hours at bedtimeNIFEdipine XL (PROCARDIA XL) 30 mg 24 hr tablet Indications: Chronic hypertension affecting , 20 weeks gestation of Take 2 tablets (60 mg total) by mouth in the morning and at bedtime. 60 tablet 2 06/18/2025 ActiveStart: 05-30-2025 End: 12-63-4963beti 1 tablet by mouth once daily in the morningNIFEdipine XL (Procardia XL) 60 MG 24 hr tablet Indications: Chronic hypertension affecting ([facility]) Take 1 tablet (60 mg) by mouth Daily Take 1 tablet in the am. Do not crush, chew, or split. 30 tablet 3 05/30/2025 05/30/2026 ActiveStart: 26-75-6105ylbv 1 tablet by mouth once dailyProcardia XL 30 MG 24 hr tablet Take 30 mg by mouth Daily 05/17/2025 ActiveStart: 05-17-2025 End: 95-52-2524jzpk 1 tablet by mouth every twenty-four hours at bedtime NIFEdipine XL (PROCARDIA XL) 30 mg 24 hr tablet Indications: Chronic hypertension affecting , 20 weeks gestation of Take 1 tablet (30 mg total) by mouth in the morning and at bedtime. 60 tablet 2 05/17/2025 06/18/2025 DiscontinuedpredniSONE 20 mg oral tablet (2 sources)Start: 17-06-7645xslk 1 tablet by mouth twice dailyPrednisone 20 mg tablet Active 20 MG PO Twice daily 10 November 24, 2023 12:00amprenatal 115/iron/folic acid ( 19 ORAL) (4 sources)take 1 tablet by mouth in the morningprenatal 115/iron/folic acid ( 19 ORAL) Take 1 tablet by mouth in the morning. Activesertraline 25 mg oral tablet (20 sources)Serotonin Reuptake InhibitorStart: 22-28-5644lzyh 1 tablet by mouth in the morningsertraline (ZOLOFT) 25 mg tablet Indications: Anxiety disorder affecting , antepartum Take1 tablet (25 mg total) by mouth in the morning. 30 tablet 1 06/18/2025 ActiveStart: 37-87-5357wlhe 1 tablet by mouth in the morningsertraline (ZOLOFT) 50 mg tablet Indications: Anxiety disorder affecting , antepartum Take1 tablet (50 mg total) by mouth in the morning. 30 tablet 1 06/18/2025 ActiveStart: 11-06-2024 End: 20-10-2937eirc 2 tablets by mouth once dailysertraline (Zoloft) 25 MG tablet Take 50 mg by mouth 1 (one) time each day at the same time 11/06/2024 ActiveStart: 11-06-2024 End: 33-75-1547fevs 3 tablets by mouth at bedtimesertraline (ZOLOFT) 25 mg tablet Take 3 tablets (75 mg total) by mouth before bedtime. 11/06/2024 DiscontinuedStart: 11-06-2024 End: 52-07-9668klfwpsmktl (Zoloft) 25 MG tablet 1 (one) time each day at the same time 11/06/2024 ActiveStart: 08-04-2023 End: 11-92-8353odyg 1 tablet by mouth once dailysertraline (Zoloft) 50 MG tablet Take 50 mg by mouth Daily 08/04/2023 04/10/2024 Discontinued (Other)sertraline (ZOLOFT) 25 mg tablet Take by mouth daily. Active Completed/Discontinued Medications MedicationDrug Class(es)DatesSig (Normalized)Sig (Original)omeprazole 20 mg delayed release oral capsule (20 sources)Proton Pump InhibitorStart: 01-24-2024 End: 99-85-4839qzll 1 capsule by mouth in the morningomeprazole (PriLOSEC) [address] capsule Take 20 mg by mouth in the morning. 01/24/2024 03/28/2025 Dis continued Problems Active Problems Problem ClassificationProblemDateDocumented DateEpisodic/ChronicAbdominal pain (3 sources)Pain in female pelvis; Translations: [Pelvic and perineal pain] 93-45-2285AzersgiiFwwaakp disorders (1 source)Anxiety disorder, unspecified; Translations: [Anxiety disorder, unspecified]Onset: 84-57-4379GbggjytPvvnihymdpzko and procreative management (10 sources)Patient encounter status; Translations: [Encounter for other procreative management]15-76-3432OxgqhupiPtvxuovn; including migraine (4 sources)Acute headache; Translations: [Acute nonintractable headache, unspecified headache type]86-61-1182BaorijmiYacnqkvbnqqs complicating ; childbirth and the puerperium (18 sources)Hypertension complicating ; Translations: [Unspecified maternal hypertension, second trimester]Onset: hronic Hypertension complicating ; childbirth and the puerperium (20 sources)Hypertension AND/OR vomiting complicating childbirth AND/OR puerperium; Translations: [Gestational [-induced] hypertension without significant proteinuria, unspecified trimester]Onset: 04-25-2025 91-78-2161TaxwadwtXicaqnietfngu and screening for infectious disease (6 sources)Contact with and (suspected) exposure to other viral communicable diseases; Translations: [Contact with or exposure to other viral diseases] EpisodicMenstrual disorders (2 sources)Amenorrhea; Translations: [Amenorrhea, unspecified]09-75-6595Qyuilze Nutritional deficiencies (20 sources)Vitamin D deficiency; Translations: [Vitamin D deficiency, unspecified]Onset: 067841-35-9547WrimeyqOydv wounds of extremities (2 sources)Laceration without foreign body of right thumb without damage to nail, initial encounter; Translations: [Laceration of finger]Onset: 04-29-2025 EpisodicOther aftercare (2 sources)Postoperative visit; Translations: [Encounter for other specified surgical aftercare]27-20-1603TmwzikjrFknor and unspecified benign neoplasm (1 source)Pigmented skin lesion ; Translations: [Melanocytic nevi, unspecified] 81-60-1641GpvjczysFauam circulatory disease (1 source)H/O: hypertension; Translations: [Personal history of other diseases of the circulatory system]42-37-1701ZtzjwwtlYsxlb complications of (5 sources)Maternal obesity complicating , childbirth and the puerperium, antepartum; Translations: [Obesity complicating , unspecified trimester]37-80-1218XwraddoBpipy complications of (2 sources)Obesity complicating , unspecified trimester; Translations: [Obesity complicating , unspecified trimester]Onset: 44-93-5533Gbkfjqw Other complications of (17 sources)History of pre-eclampsia; Translations: [Supervision of with other poor reproductive or obstetric history, unspecified trimester]Onset: 424715-01-2916HxtdlpcuOaxlh complications of (2 sources)Other mental disorders complicating , unspecified trimester; Translations: [Mental disorders of mother, antepartum condition or complication] Onset: 792534-65-1322CyiviyzeXohki endocrine disorders (20 sources)Polycystic ovary syndrome; Translations: [Polycystic ovarian syndrome]Onset: 560713-25-3046HvqcfswKkthm female genital disorders (4 sources)Abnormal uterine bleeding; Translations: [Abnormal uterine and vaginal bleeding, unspecified]47-18-0853OttvddcKeknf female genital disorders (2 sources)Abnormal uterine and vaginal bleeding, unspecified; Translations: [Abnormal uterine and vaginal bleeding, unspecified]Onset: 68-74-1058Nrrmxtc Other inflammatory condition of skin (5 sources)Pustular psoriasis of palms and soles; 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]47-19-5618CbdwmbaEvecm inflammatory condition of skin (2 sources)Pustulosis palmaris et plantaris; 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]Onset: 30-41-2222QgcosmnNygcz nutritional; endocrine; and metabolic disorders (2 sources)Morbid (severe) obesity due to excess calories; Translations: [Morbid (severe) obesity due to excess calories]Onset: 92-80-3979SkhykmoWkttx and delivery including normal (16 sources); Translations: [Encounter for supervision of normal , unspecified, unspecified trimester]83-00-6186QanobxjwPnxbo screening for suspected conditions (not mental disorders or infectious disease) (2 sources)Alpha-fetoprotein blood test status; Translations: [Encounter for screening for raised alphafetoprotein level]79-33-6660GhvrbxbcJtaww upper respiratory infections (1 source)Chronic sinusitis, unspecified; Translations: [Unspecified sinusitis (chronic)]02-23-8452ZammptgIskgk upper respiratory infections (3 sources)Sore throat symptom; Translations: [Acute pharyngitis, unspecified] 47-18-0055LbbiyjgrDtdfmvhm codes; unclassified (2 sources)History of laparoscopy; Translations: [Other specified postprocedural states]70-42-7959BvrbgjkkUtchelks codes; unclassified (1 source)Gestation period, 9 weeks; Translations: [9 weeks gestation of ]14-49-9217TdmzpygoLkqugits codes; unclassified (2 sources)Gestation period, 13 weeks; Translations: [13 weeks gestation of ]27-68-2312JtfeyckqNqrhxleo codes; unclassified (2 sources)Gestation period, 15 weeks; Translations: [15 weeks gestation of ]45-74-4182LgxphoqoPxeffhgt codes; unclassified (2 sources)Gestation period, 17 weeks; Translations: [17 weeks gestation of ]17-33-8095KcqunyuxOdeltdzq codes; unclassified (2 sources)Gestation period, 20 weeks; Translations: [20 weeks gestation of ]84-83-2990JpgcpvxqXowoppuf codes; unclassified (2 sources)Gestation period, 22 weeks; Translations: [22 weeks gestation of ]34-28-1876HqyojuyhDigwdsnq codes; unclassified (2 sources)Gestation period, 21 weeks; Translations: [21 weeks gestation of ]53-82-2170ZokoqqcnHhjamgap codes; unclassified (2 sources)Gestation period, 23 weeks; Translations: [23 weeks gestation of ]04-03-5505QsuebwouMmowqthl codes; unclassified (1 source)20 weeks gestation of ; Translations: [20 weeks gestation of ]Onset: 39-45-4003OhgiuktjXmlttmwr codes; unclassified (2 sources)Gestation period, 25 weeks; Translations: [25 weeks gestation of ]64-22-3607GizwoprqJbulbnklmpkc (1 source)gHTNOnset: 05-17-2025 Past or Other Problems Problem ClassificationProblemDateDocumented DateEpisodic/ChronicCardiac dysrhythmias (8 sources)Palpitations; Translations: [Palpitations]Onset: 392480-96-3910 EpisodicNonspecific chest pain (3 sources)Chest pain, unspecified; Translations: [Chest pain]Onset: 11-03-2024 EpisodicOther female genital disorders (20 sources)Fallopian tube disorder; Translations: [Noninflammatory disorder of ovary, fallopian tube and broadligament, unspecified]Onset: 658642-16-4527 EpisodicUnclassified (2 sources)Patient encounter vnogwf62-94-6354Mrftywfqzsbw (1 source)Onset: 159427-55-8071Gxhjggzinvfh (1 source)Anxiety disorder affecting , ejbnuyxchc11-42-3624Iphcxfl tract infections (3 sources)Acute cystitis; Translations: [Acute cystitis without hematuria] Onset: 526445-82-6542UufexznsHxtqr infection (1 source)COVID-19 Results Test NameValueInterpretationReference RangeFacilityUrinalysis macro (dipstick) panel (U)on 64-27-7695Auiryteky, UANegativeNegative - 4(70) +++ mg/dLNOMS HealthcareBlood, UANegativeNegative [...] mg/dLNOMS HealthcareNOMS HealthcareUrinalysis macro (dipstick) panel (U)on 53-10-8447Qzxiewydv, UA NegativeNegative - 4(70) +++ mg/dLNOMS HealthcareBlood, [...] mg/dLNOMS HealthcareNOMS HealthcareUrinalysis macro (dipstick) panel (U)on 49-14-5774Cxiowlfue, UANegativeNegative - 4(70) +++ mg/dL NOMS HealthcareBlood, UANegativeNegative - 50 Surjit/mcLNOMS HealthcareClarity, UA ClearNOMS HealthcareColor, UAYellowNOMS HealthcareGlucose, UANegativeNegative - 1999(110) ++++ mg/dLNOMS HealthcareInterpretation and review of laboratory resultsNormalNOMS HealthcareKetones, UANegativeNegative - 160(16) ++++ mg/dLNODE HealthcareLeukocytes, UANegativeNegative - 500+++ Kaleigh/mcLNOMS HealthcareNitrite, UANegativeNegative - PositiveNOMS HealthcarepH, UA65 - 9NOMS HealthcareProtein, UANegativeNegative - 2000(20) ++++ mg/dLNOMS HealthcareSpec Grav, UA1.0251 - 1.03NOMS HealthcareUrobilinogen, UA0.20.2 - 12 mg/dLNOMS HealthcareNOMS HealthcareAFP, SERUM, OPEN SPINA BIFIDAon 06-59-6340MOY MOM0.85.[facility] AFP VALUE38.2 ng/mL.[facility] HospitalCOMMENT:Comment.[facility] HospitalComment on above:Gema Ortez, Ph.D., [facility] Director References: Available Upon Request. Multiples Of Median Cutoffs For AFP Elevations Kumar 2.5 Black 2.8 IDD 2.0 Twins 4.5 Abbreviation Definitions IDD - Insulin Dep Diabetes OSBR - Open Spina Bifida Risk For further inquiries contact [employer] [facility] at [phone]. This test was developed and its performance characteristics determined by [employer]. It has not been cleared or approved by the Food and Drug Administration. Performed at: [facility] [address] [place], [place] [id number] Boardmarker: [facility], located within [facility], Phone: [phone] GEST. AGE ON COLLECTION DATE21.1. weeksNODE HealthcareGESTAT. AGE BASED ONLMP. [facility] HospitalComment on above:Recalculations are not recommended when gestational dating by LMP and ultrasound are within 10 days. INSULIN DEP DIABETESNo.[facility] HealthcareINTERPRETATIONComment.[facility] Comment on above:Interpretation: Screen [...] Customer Services to discuss available options. The [employer] recommends amniocentesis be offered to women age 35 and older. MATERNAL A[age] AT EDD35.5. yrNODE HealthcareMULTIPLE GESTATIONNo.[facility] Healthcare OSBR RISK 1 [id number].NOMS HealthcareRACECaucasian.[facility] HealthcareRESULTSReport. [facility] HealthcareTEST RESULTS:Negative.[facility] VqwsrqlpmhJLPBOY614. lbsNOMS HealthcareN N LMP [id number] 2 9 N 1 [address] White/ CLINISYNCNODE HealthcareUnlisted Lab Teston 74-23-9985Uavxm Free Cell Dnalow riskProCherrington Hospital SystemProSouthern Ohio Medical CenterB-TYPE NATRIURETIC PEPTIDEon 61-52-3308Zlybfeikwcb peptide B (Bld) [Mass/Vol]46 pg/mLNormal<=100ProMartin Memorial HospitalComment on above:Performed By: #### BNP #### [facility] (TT) [address] [place] [address] VIRUrinalysis macro (dipstick) panel (U)on 68-83-4405Bsxukfnxo, UANegativeNegative - 4(70) +++ mg/dLNODE HealthcareBlood, UANegativeNegative - 50 Surjit/mcLNODE HealthcareClarity, UAClearNODE HealthcareColor, UAYellowNODE HealthcareGlucose, UANegativeNegative - 2000(110) ++++ mg/dLWashington [facility] Hospital Interpretation and review of laboratory resultsNormalNODE HealthcareKetones, UA NegativeNegative - 160(16) ++++ mg/dLBL[facility] MOUNTAIN [facility]OSPITAL HealthcareLeukocytes, UANegative Negative - 500+++ Kaleigh/mcLNODE HealthcareNitrite, UANegativeNegative - Positive [facility] HealthcarepH, UA65 - 9NODE HealthcareProtein, UANegativeNegative - 2000(20) ++++ mg/dLNODE HealthcareSpec Grav, UA1.0151 - 1.03NODE HealthcareUrobilinogen, UA1.00.2 - 12 mg/dLNOMosaic Life Care at St. Joseph HealthcareTBH TOTAL PROTEIN 24 HOUR URINEon 59-76-3055QBNQL PROTEIN URINE RANDOM<6.0NINF - 11.9 mg/dLWashington [facility] Memorial Hospital TOTAL VOLUME 24 HOUR RBGQM5501kS/24hrNODE HealthcareCLINISYNCNOMS HealthcareALL CBC WITH AUTO DIFFon 54-47-3211HEFJIJARR ABSOLUTE MYYR9DKDH Healthcare Basophils/100 WBC (Bld)0.2 %0.2 - 2.0 %NOMBates County Memorial HospitalEosinophils/100 WBC (Bld) 2.9 %0.9 - 7.0 %[facility] HospitalErythrocyte distribution width (RBC) [Ratio]12.3 %11.0 - 15.0 %[facility] HospitalIMMATURE GRANULOCYTES ABS AUTO0.09HighNOColumbia Regional HospitalImmature granulocytes/100 WBC (Bld)0.7 %High0.0 - 0.5 %[facility] Interpretation and review of laboratory resultsAbnormalWashington [facility] Hospital LYMPHOCYTES ABSOLUTE BORG9ZAWCColumbia Regional HospitalLymphocytes/100 WBC (Bld)15.4 %Low20.5 - 60.0 %[facility] St. JosephH (RBC) [Entitic mass]31.3 pg26.7 - 34.[address] JosephHC (RBC) [Mass/Vol]33.6 g/dL29.9 - 35.2 g/dLMosaic Life Care at St. JosephV (RBC) [Entitic vol]93.2 fL81.0 - 99.0 fLWashington County Memorial HospitalMONOCYTES ABSOLUTE AUTO0.5NOColumbia Regional HospitalMonocytes/100 WBC (Bld)4.1 %1.7 - 12.0 %[facility] HospitalNEUTROPHILS ABSOLUTE AUTO9.9HighNOColumbia Regional HospitalNeutrophils/100 WBC (Bld)76.7 %High43.0 - 75.0 %[facility] HospitalPlatelet mean volume (Bld) [Entitic vol]10.2 fL9.5 - 13.5 fLWashington County Memorial HospitalTBH EO #0.4NOColumbia Regional HospitalTBH NBS015WBCNEllis Fischel Cancer Center RBC3.8 LowNOColumbia Regional HospitalTB QCL72AyzvIOTEWashington County Memorial HospitalCLINISYNCAPTTon 79-93-9171vSIV Coag (Bld) [Time]26.5 [facility] without diffon 04-17-2025 Platelets (Bld) [#/Vol]251 10*3/uLJoint Township District Memorial Hospital Mcv (Fl) By Automated Count93.2Pro[facility]ica [facility] SystemLaboratory - Hematology and Cell countson 34-06-0046Icgwzqihxb (Bld) [Volume fraction]35.4 %[facility] Hemoglobin (Bld) [Mass/Vol]11.9 g/dLNODE HealthcareNo Panel Informationon 85-32-5965OHNA HealthcareUrinalysis macro (dipstick) panel (U)on 04-11-2025 Bilirubin, UANegativeNegative - 4(70) +++ mg/dLNOMS HealthcareBlood, UANegative Negative - 50 Surjit/mcLNOMS HealthcareClarity, UAClearNOMS HealthcareColor, UA YellowNOMS HealthcareGlucose, UANegativeNegative - 2000(110) ++++ mg/dLNODE HealthcareInterpretation and review of laboratory resultsNormalBL[facility]OUNTAIN [facility] Healthcare Ketones, UANegativeNegative - 160(16) ++++ mg/dLNOMS HealthcareLeukocytes, UA NegativeNegative - 500+++ [place]aleigh/mcLNODE HealthcareNitrite, UANegativeNegative - PositiveNOMS HealthcarepH, UA65 - 9NOMS HealthcareProtein, UANegativeNegative - 2000(20) ++++ mg/dLNODE HealthcareSpec Grav, UA1.0151 - 1.03NODE Healthcare Urobilinogen, UA1.00.2 - 12 mg/dLNODE HealthcareNODE HealthcareUrinalysis macro (dipstick) panel (U)on 21-76-8027Sgsxmwuqv, UANegativeNegative - 4(70) +++ mg/dL NOMS HealthcareBlood, UANegativeNegative - 50 Surjit/mcLNOMS HealthcareClarity, UA ClearNOMS HealthcareColor, UAYellowNOMS HealthcareGlucose, UANegativeNegative - 2000(110) ++++ mg/dLNODE HealthcareInterpretation and review of laboratory resultsAbnormalNOMS HealthcareKetones, UANegativeNegative - 160(16) ++++ mg/dL NOMS HealthcareLeukocytes, UAPositiveNegative - 500+++ [place]aleigh/mcLNOMS Healthcare Comment on above:2+Nitrite, UANegativeNegative - PositiveNOMS HealthcarepH, UA65 - 9NOMS HealthcareProtein, UANegativeNegative - 2000(20) ++++ mg/dLNOMS HealthcareSpec Grav, UA1.021 - 1.03NODE HealthcareUrobilinogen, UA1.00.2 - 12 mg/dLReynolds County General Memorial Hospital HealthcareALL CBC WITH AUTO DIFFon 02-05-3220EQSFXGCKC ABSOLUTE AUTO0.1NOMS HealthcareBasophils/100 WBC (Bld)0.5 %0.2 - 2.0 %NOMBates County Memorial HospitalEosinophils/100 WBC (Bld)4 %0.9 - 7.0 %[facility] HospitalErythrocyte distribution width (RBC) [Ratio]12.2 %11.0 - 15.0 %[facility] HospitalIMMATURE GRANULOCYTES ABS AUTO0.08HighWashington County Memorial HospitalImmature granulocytes/100 WBC (Bld) 0.6 %High0.0 - 0.5 %[facility] HospitalInterpretation and review of laboratory resultsAbnormalWashington [facility] HospitalLYMPHOCYTES ABSOLUTE AUTO2.6NOColumbia Regional Hospital Lymphocytes/100 WBC (Bld)18.4 %Low20.5 - 60.0 %[facility]H (RBC) [Entitic mass]31.5 pg26.7 - 34.[address] JosephHC (RBC) [Mass/Vol]34.1 g/dL29.9 - 35.2 g/dLMosaic Life Care at St. JosephV (RBC) [Entitic vol]92.4 fL81.0 - 99.0 fLWashington County Memorial HospitalMONOCYTES ABSOLUTE AUTO0.6Washington [facility] HospitalMonocytes/100 WBC (Bld)4.3 % 1.7 - 12.0 %[facility] HospitalNEUTROPHILS ABSOLUTE AUTO10.1HighWashington County Memorial Hospital Neutrophils/100 WBC (Bld)72.2 %43.0 - 75.0 %[facility] HospitalPlatelet mean volume (Bld) [Entitic vol]10.2 fL9.5 - 13.5 fLWashington County Memorial HospitalTB EO #0.6[facility] TBH UIF292FZNEEllis Fischel Cancer Center RBC3.94LowSoutheast Missouri Hospital WBC13.9HighWashington County Memorial HospitalCLINISYNCCBC without diffon 80-51-1199Hrvpztkzg (Bld) [#/Vol]261 10*3/uLMiddletown HospitalRb Mcv (Fl) By Automated Count92.4M[facility]letown HospitalDrug Screen, Urineon 35-51-2489Umssjmvikzo/MethamphetamineNegative [facility] HospitalBarbituratesNegativeMiddletown Hospital BenzodiazepinesNegativeMiddletown HospitalCocaine MetaboliteNegative [facility] HospitalMethadoneNegativeMiddletown HospitalOpiatesNegative [facility] HospitalOxycodoneNegativeMiddletown HospitalPhencyclidine NegativeMiddletown HospitalThc Marijuana, UrineNegativeMiddletown HospitalHBV surface Ag IA Qlon 88-55-1695Fxkrccgow B Surface AntigenNegative [facility] HospitalHCV Ab IA Qlon 08-77-4607SSI Ab Ql (S)Non-Reactive [facility] HospitalHIV 1+2 Ab+HIV1 p24 Ag IA Qlon 48-80-8037UZO 1&2 AB/AG Non-ReactiveMiddletown HospitalHemoglobin A1con 48-56-6291MzH6z (Bld) [Mass fraction]5.1 %4.0 - 6.0 %[facility] HospitalLaboratory - Hematology and Cell countson 41-59-9534Wtdubwubjc (Bld) [Volume fraction]36.4 %[facility] Hemoglobin (Bld) [Mass/Vol]12.4 g/dLWashington County Memorial HospitalNo Panel Informationon 16-08-0694IMMB HealthcareRubella IGG immune statuson 09-43-1386Elwzuxt immune IgGIMMUNEMiddletown HospitalT. pallidum IgG+IgM IA Ql (S)Ordered By: Christina Bertrand on 07-29-8755FmhuhiryPgn-ReactiveMiddletown HospitalType and screenon 57-48-4707Zas/Rh(D)PositiveMiddletown HospitalHCG ( test) Ql (U)on 68-80-1380Soqzzcxhnvbyjs and review of laboratory resultsAbnormJefferson Health Preg Test, UrPositiveNegativeNOColumbia Regional HospitalNODE HealthcareUS OB TRANSVAGINALon 42-47-0628OP OB TRANSVAGINALFINDINGS: A single intrauterine gestational sac [...] No LMP recorded.Urinalysis macro (dipstick) panel (U)on 34-33-5156Clkjrsllx, UA NegativeNegative - 4(70) +++ mg/dLNOMS HealthcareBlood, UANegativeNegative - 50 Surjit/[facility]NODE HealthcareClarity, UAClearNOMS HealthcareColor, UAYellowNOMS HealthcareGlucose, UANegativeNegative - 2000(110) ++++ mg/dLNODE Healthcare Interpretation and review of laboratory resultsNormalNOMS HealthcareKetones, UA NegativeNegative - 160(16) ++++ mg/dLNODE HealthcareLeukocytes, UANegative Negative - 500+++ Kaleigh/mcLNODE HealthcareNitrite, UANegativeNegative - Positive NOMS HealthcarepH, UA75 - 9NOMS HealthcareProtein, UANegativeNegative - 2000(20) ++++ mg/dLNODE HealthcareSpec Grav, UA1.0051 - 1.03NOMS HealthcareUrobilinogen, UA0.20.2 - 12 mg/dLNOMS HealthcareNOMS HealthcareALL PROGESTERONEon 01-18-2025 PROGESTERONE8.7 ng/mL.[facility] HealthcareComment on above:Follicular phase 0.1 - 0.9 Luteal phase 1.8 - 23.9 Ovulation phase 0.1 - 12.0 First trimester 11.0 - 44.3 Second trimester 25.4 - 83.3 Third trimester 58.7 - 214.0 Postmenopausal 0.0 - 0.1 Performed at: [address] [id number] Boardmarker: Yobany Blount PhD, Phone: [phone] [facility] SewickleyPATHOLOGY REQUEST FOR LAB CORPon 98-74-1308CLCHZWLRS REQUEST FOR LAB CORPNOMS HealthcareComment on above:See report. Scanned copy available in EMR.SKIN SPECIMENFIRSelect Specialty Hospital - HarrisburgALL PROGESTERONEon 90-70-7133QDMPZQIMTTXM06.9 ng/mL.NOMS HealthcareComment on above:Follicular phase 0.1 - 0.9 Luteal phase 1.8 - 23.9 Ovulation phase 0.1 - 12.0 First trimester 11.0 - 44.3 Second trimester 25.4 - 83.3 Third trimester 58.7 - 214.0 Postmenopausal 0.0 - 0.1 Performed at: [address] [id number] Boardmarker: Yobany Blount PhD, Phone: [phone] [facility] SewickleyPathology Request for Lab Corpon 41-63-7918Ahdomuulc Request for Lab CorpNoNovant Health Franklin Medical Center Physician GroupComment on above:Order Comment: SKIN SPECIMENResult Comment: See report. Scanned copy available in EMR. PERFORMED BY: [place] [address] PATHOLOGIST BOSS MINER ANAHI TRAN M.D.Performed By: #### PATH TO [facility] #### [place] [address] USAIGP,APTIMA HPV,AGE GDLNon 33-66-6248WFZ GDLN ACOG TESTING Note.NOMS HealthcareComment on above:TESTS RESULT FLAG UNITS REF RANGE LAB Clinician Provided Cytology Information Source.............Cervix;Endocervix No. of containers..01 ThinPrep Vial Age Alberto FORREST Marjorie... 32 FLAG LEGEND: L-Low Normal,H-High Normal,LL-Alert Low,HH-Alert High <-Panic Low,>-Panic High,A-Abnormal,AA-Critical Abnormal Performed at: 01 =[address] [address] Vonnie Woodard MD, HPV APTIMANegativeNegativeNOMS HealthcareComment on above:This nucleic acid amplification test detects fourteen high- risk HPV types (16,18,31,33,35,39,45,51,52,56,58,59,66,68) without differentiation. Performed at: =[address] [id number] Boardmarker: Vonnie Woodard MD, Phone: [phone] Performed at: [address] [id number] Boardmarker: Vonnie Woodard MD, Phone: [phone] IGP, APTIMA HPV, RFX 16/18,45Note.NOMS HealthcareComment on above:TESTS RESULT FLAG UNITS REF RANGE LAB DIAGNOSIS: 02 NEGATIVE FOR INTRAEPITHELIAL LESION OR MALIGNANCY. Specimen adequacy: 02 Satisfactory for evaluation. Endocervical and/or squamous metaplastic cells (endocervical component) are present. Performed by: 02 Quiana Vyas, Lifter/Driver (ASCP) . 02 Note: Note 02 The [...] <-Panic Low,>-Panic High,A-Abnormal,AA-Critical Abnormal Performed at: [address] [address] Vonnie Woodard MD, BRUSH-SPATULA CERVIX ENDOCERVIX CLINISYNCNOColumbia Regional HospitalALL PROGESTERONEon 94-71-8148VKVUYFDWCVJC95.2 ng/mL.[facility] HealthcareComment on above:Follicular phase 0.1 - 0.9 Luteal phase 1.8 - 23.9 Ovulation phase 0.1 - 12.0 First trimester 11.0 - 44.3 Second trimester 25.4 - 83.3 Third trimester 58.7 - 214.0 Postmenopausal 0.0 - 0.1 Performed at: [facility]coThe [facility] [address] [place], [place] [id number] Boardmarker: Yobany Blount PhD, Phone: [phone] CLINISYNCNOTwo [facility] AND AUTO DIFFon 99-75-8243XRCEPFJL BASOPHIL0.1 X10E9/LNormal0.0-0.2PSt. John of God HospitalComment on above:Performed By: #### CBCGavin, CMP, 94450-2, 98376-8, THYR #### [facility] ([id number]) [address] [place] [address] 53080JTGMDZTP NEUTROPHIL6.9 X10E9/LHigh1.5-6.6ProBaylor Scott & White Medical Center – Trophy ClubComment on above:Performed By: #### CBCA, [facility], , 25352-7, THYR #### [facility] ([id number]) [address] [place] [address] 94365Yxrrbsuou/100 WBC (Bld)1.1 %NormalHolzer Medical Center – Jackson Comment on above:Performed By: #### CBCA, [facility], , [address]-6, THYR #### [facility] ([id number]) [address] [place] [address] 60078Ayothymexul (Bld) [#/Vol]0.3 10*3/uLNormal0.0-0.4Holzer Medical Center – JacksonComment on above:Performed By: #### CBCA, [facility], , 187[address]-0, THYR #### [facility] ([id number]) [address] [place] [address] 92588Fducvchgwln/100 WBC (Bld)2.3 %NormalHolzer Medical Center – Jackson Comment on above:Performed By: #### CBCA, CMP, , 65032-1, THYR #### [facility] ([id number]) [address] [place] [address] 79302Qtfcrdfjeqj distribution width (RBC) [Ratio]12.6 %Normal 11.5-15.0Holzer Medical Center – JacksonComment on above:Performed By: #### CBCA, CMP, , 09061-8, THYR #### [facility] ([id number]) [address] [place] [address] 83831Tltqsumwkl (Bld) [Volume fraction]40.4 %Urudsa86-61WkhKiyzoeBaylor Scott & White Medical Center – Trophy ClubComment on above:Performed By: #### KARSON, CMP, 32151-1, 93602-3, THYR #### [facility] ([id number]) [address] [place] [address] 74670Oiqdbjksxk (Bld) [Mass/Vol]13.7 g/rTMgdcru10.7-15.5PSt. John of God HospitalComment on above:Performed By: #### KARSON, CMP, 53930-9, 65341-9, THYR #### [facility] ([id number]) [address] [place] [address] 59893Imacddoredh (Bld) [#/Vol]3.6 10*3/uLHigh1.0-3.5PSt. John of God HospitalComment on above:Performed By: #### KARSON, CMP, 29340-1, 72979-1, THYR #### [facility] ([id number]) [address] [place] [address] 23990Jenjrfykghp/100 WBC (Bld)31.6 %NormalHolzer Medical Center – Jackson Comment on above:Performed By: #### CBCGavin, CMP, 20735-1, 47088-5, THYR #### [facility] ([id number]) [address] [place] [address] 17344GDN (RBC) [Entitic mass]30.9 hyHitcaw61-64QtxOomtyaBaylor Scott & White Medical Center – Trophy ClubComment on above:Performed By: #### CBCA, CMP, 13005-5, 14105-8, THYR #### [facility] ([id number]) [address] [place] [address] 98921MPMY (RBC) [Mass/Vol]34.0 g/mILekdnr75-01LlkMgpkciHolzer Medical Center – JacksonComment on above:Performed By: #### CBCA, CMP, 99950-3, 84835-1, THYR #### [facility] ([id number]) [address] [place] [address] 18277KVD (RBC) [Entitic vol]91 zDSfvjxf45-981QofUundbd Fremont HospitalComment on above:Performed By: #### CBCA, CMP, 40819-1, 10389-2, THYR #### [facility] ([id number]) [address] [place] [address] 50070Yvvscfvyu (Bld) [#/Vol]0.6 10*3/uLNormal0-0.9Holzer Medical Center – JacksonComment on above:Performed By: #### CBCA, CMP, 99081-3, 77872-4, THYR #### [facility] ([id number]) [address] [place] [address] 29076Jiafrpblh/100 WBC (Bld)5.4 %[facility] Comment on above:Performed By: #### CBCA, CMP, 34511-7, 21985-6, THYR #### [facility] ([id number]) [address] [place] [address] 96581Ehgvqpuinmh/100 WBC (Bld)59.6 %[facility] Comment on above:Performed By: #### CBCA, CMP, 38371-9, 49508-0, THYR #### [facility] ([id number]) [address] [place] [address] 02023Opuywapc mean volume (Bld) [Entitic vol]7.9 fLNormal7-12 ProMVeterans Affairs Medical Center San DiegoComment on above:Performed By: #### CBCA, CMP, 37278- 9, 37097-2, THYR #### [facility] ([id number]) [address] [place] [address] 50000Swyihgnch (Bld) [#/Vol]346 10*3/eZMtwgft189-477GbiGueszx [facility]remont HospitalComment on above:Performed By: #### KARSON, CMP, 29586-0, 13569-7, THYR #### [facility] ([id number]) [address] [place] [address] 67413OJB COUNT4.44 X10E12/LNormal3.80-5.20[facility] Comment on above:Performed By: #### KARSON, CMP, 70774-0, 63727-2, THYR #### [facility] ([id number]) [address] [place] [address] 79935BFG (Bld) [#/Vol]11.5 10*3/uLHigh4.0-11.0Holzer Medical Center – JacksonComment on above:Performed By: #### KARSON, CMP, 82444-3, 73816-8, THYR #### [facility] ([id number]) [address] [place] [address] 02751IFUKWMPMKHFVY METABOLIC PANELon 31-71-6202Jwbzenb [Mass/Vol]4.0 g/dLNormal3.2-5.3PSt. John of God HospitalComment on above:Performed By: #### KARSON, CMP, 45987-1, 97371-9, THYR #### [facility] ([id number]) [address] [place] [address] 23708WXO [Catalytic activity/Vol]50 U/THfjoon19-729FgcAbohioBaylor Scott & White Medical Center – Trophy ClubComment on above:Performed By: #### MATTHEWA, CMP, 70665-8, 55112-6, THYR #### [facility] ([id number]) [address] [place] [address] 18121URB [Catalytic activity/Vol]19 U/LNormal0-31PSt. John of God HospitalComment on above:Performed By: #### LUKAS TY, 53522-9, 07990-9, THYR #### [facility] ([id number]) [address] [place] [address] 67438Qdqer gap [Moles/Vol]11 mmol/LNormal5-15ProBaylor Scott & White Medical Center – Trophy ClubComment on above:Performed By: #### KARSON, LUKAS, 77767-1, 27727-8, THYR #### [facility] ([id number]) [address] [place] [address] 70150IXM [Catalytic activity/Vol]18 U/LNormal0-41ProBaylor Scott & White Medical Center – Trophy ClubComment on above:Performed By: #### LUKAS TY, 37187-5, 17132-1, THYR #### [facility] ([id number]) [address] [place] [address] 84815Pxmjyklip [Mass/Vol]0.4 mg/dLNormal0.3-1.2PSt. John of God HospitalComment on above:Performed By: #### LUKAS TY, 19560-9, 63798-1, THYR #### [facility] ([id number]) [address] [place] [address] 27242Ujgvvny [Mass/Vol]9.4 mg/dLNormal8.5-10.5PSt. John of God HospitalComment on above:Performed By: #### KARSON, LUKAS, 34643-1, 73997-4, THYR #### [facility] ([id number]) [address] [place] [address] 67950Bajcvtzw [Moles/Vol]106 mmol/JXftxwg31-866EabFvfogsBaylor Scott & White Medical Center – Trophy ClubComment on above:Performed By: #### LUKAS TY, 69521-6, 85724-5, THYR #### [facility] ([id number]) [address] [place] [address] 89617LO2 [Moles/Vol]23 mmol/FPplsgc26-47GyrTqxgsdSt. John of God Hospital Comment on above:Performed By: #### LUKAS TY, 50110-3, 94189-2, THYR #### [facility] ([id number]) [address] [place] [address] 38155Zrnvhexryh [Mass/Vol]0.76 mg/dLNormal0.40-1.00Holzer Medical Center – JacksonComment on above:Result Comment: METHOD TRACEABLE TO IDMS STANDARD Performed By: #### LUKAS TY, 77390-9, 95310-3, THYR #### [facility] ([id number]) [address] [place] [address] 56181cUHZ (CKD-EPI) NON-RACE DEPENDENT>90Normal>59ProBaylor Scott & White Medical Center – Trophy ClubComment on above:Result Comment: Reported eGFR is based on the CKD-EPI 2020 equation that does not use a race coefficient.Performed By: #### LUKAS TY, , 11855-0, THYR #### [facility] ([id number]) [address] [place] [address] 10417Qgbyozb [Mass/Vol]114 mg/lLBnav18-58GepTptpnoHolzer Medical Center – Jackson Comment on above:Performed By: #### LUKAS TY, , 72084-3, THYR #### [facility] ([id number]) [address] [place] [address] 97760Xckqcvzuq [Moles/Vol]4.1 mmol/LNormal3.5-5.0Holzer Medical Center – JacksonComment on above:Performed By: #### LUKAS TY, 70587-9, 83068-6, THYR #### [facility] ([id number]) [address] [place] [address] 77315Gcsypun [Mass/Vol]7.3 g/dLNormal6.0-8.0Holzer Medical Center – JacksonComment on above:Performed By: #### CBCGavin, CMP, 69406-3, 48031-5, THYR #### [facility] ([id number]) [address] [place] [address] 33134Gsyuey [Moles/Vol]140 mmol/FHteevh727-426LtrZejeyu [facility]remont HospitalComment on above:Performed By: #### KARSON, LUKAS, 78530-5, 36656-0, THYR #### [facility] ([id number]) [address] [place] [address] 98442Xdte nitrogen [Mass/Vol]13 mg/dLNormal5-23Holzer Medical Center – JacksonComment on above:Performed By: #### KARSON, LUKAS, 96199-0, 08269-9, THYR #### [facility] ([id number]) [address] [place] [address] 47718Tahurd D-dimer DDU (PPP) [Mass/Vol]on 11-04-2024D DIMER<150 Normal<255Holzer Medical Center – JacksonComhenry ford jack[facility] on above:Result Comment: Results <255 ng/mL DDU: The presence of a VTE can safely be excluded with a negative D-Dimer result and Wells score. A negative result doesn't exclude the possibility of DIC. The test be repeated along with other diagnostic tests if the patient's symptoms persist or worsen. [email or web address] By: #### CBCA, CMP, 95484-1, 50182-3, THYR #### [facility] ([id number]) [address] [place] [address] 50023QNP ( test) Ql (U)on 04-89-1493Jbcv HCG ( test) Ql (U)NegativeNormalNEGProBaylor Scott & White Medical Center – Trophy ClubComment on above: Performed By: #### 2106-3 #### [facility] ([id number]) [address] [place] [address], [place] [address]DBMQTCMIQfj 31-49-3944Obtfcbhzr [Mass/Vol]2.3 mg/dLNormal 1.8-2.6ProBaylor Scott & White Medical Center – Trophy ClubComment on above:Performed By: #### LUKAS TY, 14555-8, 28913-6, THYR #### [facility] ([id number]) [address] [place] [address], [place] [address]XJMUJRL PROFILEon 01-64-1733Zynx T4 [Mass/Vol]0.88 ng/dLNormal 0.61-1.60ProBaylor Scott & White Medical Center – Trophy ClubComment on above:Performed By: #### LUKAS TY, 97909-4, 10729-6, THYR #### [facility] ([id number]) [address] [place] [address], [place] [address]LSG8.78 uIU/mLNormal0.49-4.67ProBaylor Scott & White Medical Center – Trophy ClubComment on above:Performed By: #### LUKAS TY, 72867-5, 15850-8, THYR #### [facility] ([id number]) [address] [place] [address] [place] [address]TXW MACROSCOPIC NURon 00-29-0993IQFMDUHKL NURNegativeNormalNEG ProMVeterans Affairs Medical Center San DiegoComment on above:Performed By: #### NUM #### [facility] ([id number]) [address] [place] [address], [place] [address]HSOLJ/HGB NURTraceAbnormalNEGHolzer Medical Center – JacksonComment on above:Performed By: #### NUM #### [facility] ([id number]) [address] [place] [address], [place] [address]VEQXQJY NURNegativeNormalNEGHolzer Medical Center – JacksonComment on above:Performed By: #### NUM #### [facility] ([id number]) [address] [place] [address] 95328CLHNAAW NURNegativeNormalNEGHolzer Medical Center – JacksonComment on above:Performed By: #### NUM #### [facility] ([id number]) [address] [place] [address] 86064XOSWNKFHR ESTERASE NURSmallAbnormalNEGHolzer Medical Center – JacksonComment on above:Performed By: #### NUM #### [facility] ([id number]) [address] [place] [address] 97476QWDQBAL NURNegativeNormalNEGHolzer Medical Center – JacksonComment on above:Performed By: #### NUM #### [facility] ([id number]) [address] [place] [address] 18374WR NUR6.7Xdvabr8.0-8.5PSt. John of God HospitalComment on above:Performed By: #### NUM #### [facility] ([id number]) [address] [place] [address] 63709CQLCNUW NURNegativeNormalNEGHolzer Medical Center – JacksonComment on above:Performed By: #### NUM #### [facility] ([id number]) [address] [place] [address] [place] [address]LGBTQRLP GRAVITY NUR1.840Ppfvyt8.003-1.035ProBaylor Scott & White Medical Center – Trophy ClubComment on above:Performed By: #### NUM #### [facility] ([id number]) [address] [place] [address] 33113XYWVHHXEHOZT NUR0.2 eu/dLNormal<1.1PSt. John of God Hospital Comment on above:Performed By: #### NUM #### [facility] ([id number]) [address] [place] [address] 52398TL CHEST 1 VWon 08-95-6287FZ CHEST 1 VWXR CHEST 1 VW History: Palpitations Exam/Technique: Portable upright AP chest Comparison: 11/12/2022 Findings: There is no active pulmonary or pleural disease displayed. Cardiac and mediastinal contours appear within normal limits on this AP projection. IMPRESSION: No evidence of active pulmonary disease. Finalized by Tres Giron MD on 11/04/2024 1:02 AMNormalOhioHealth Pickerington Methodist Hospitalca [facility] PROGESTERONEon 74-77-9876WRHDBKDQFVMZ12.8 ng/mL.[facility] Comment on above:Follicular phase 0.1 - 0.9 Luteal phase 1.8 - 23.9 Ovulation phase 0.1 - 12.0 First trimester 11.0 - 44.3 Second trimester 25.4 - 83.3 Third trimester 58.7 - 214.0 Postmenopausal 0.0 - 0.1 Performed at: [facility] [employer] [id number] Boardmarker: Yobany Blount PhD, Phone: [phone] [facility] HOSPITALAries CoveBarton County Memorial Hospital PROGESTERONEon 55-47-5705SMRFXLFKUECZ35.3 ng/mL.NOMS HealthcareComment on above:Follicular phase 0.1 - 0.9 Luteal phase 1.8 - 23.9 Ovulation phase 0.1 - 12.0 First trimester 11.0 - 44.3 Second trimester 25.4 - 83.3 Third trimester 58.7 - 214.0 Postmenopausal 0.0 - 0.1 Performed at: [facility] [employer] [id number] Boardmarker: Yobany Blount PhD, Phone: [phone] [facility] PROGESTERONEon 98-45-4954ZAKBXDRJGKPR4.5 ng/mL.NOMS HealthcareComment on above:Follicular phase 0.1 - 0.9 Luteal phase 1.8 - 23.9 Ovulation phase 0.1 - 12.0 First trimester 11.0 - 44.3 Second trimester 25.4 - 83.3 Third trimester 58.7 - 214.0 Postmenopausal 0.0 - 0.1 Performed at: [facility] [employer] [id number] Boardmarker: Yobany Blount PhD, Phone: [phone] [facility] HOSPITALPicfairCumberland Medical Center PROGESTERONEon 90-57-3266QNGMSNGKKTTC89.8 ng/mL.[facility] HealthcareComment on above:Follicular phase 0.1 - 0.9 Luteal phase 1.8 - 23.9 Ovulation phase 0.1 - 12.0 First trimester 11.0 - 44.3 Second trimester 25.4 - 83.3 Third trimester 58.7 - 214.0 Postmenopausal 0.0 - 0.1 Performed at: [facility] [address] [id number] Boardmarker: Yobany Blount PhD, Phone: [phone] [facility] CBC WITH AUTO DIFFon 06-95-8877BYWVBHJCF ABSOLUTE AUTO0.1NOMS HealthcareBasophils/100 WBC (Bld)0.6 %0.2 - 2.0 %[facility] Eosinophils/100 WBC (Bld)2.8 %0.9 - 7.0 %[facility] HealthcareErythrocyte distribution width (RBC) [Ratio]12.1 %11.0 - 15.0 %[facility] HealthcareHematocrit (Bld) [Volume fraction]40.6 %36.0 - 48.0 %[facility] HospitalHemoglobin (Bld) [Mass/Vol]13.5 g/dL 12.0 - 16.0 g/dLWashington County Memorial HospitalIMMATURE GRANULOCYTES ABS AUTO0.02[facility] Immature granulocytes/100 WBC (Bld)0.3 %0.0 - 0.5 %[facility]OMB[facility] HospitalLYMPHOCYTES ABSOLUTE AUTO1.8[facility] HealthcareLymphocytes/100 WBC (Bld)23.0 %20.5 - 60.0 %[facility] (RBC) [Entitic mass]30.6 pg26.7 - 34.0 pgNOEllett Memorial HospitalHC (RBC) [Mass/Vol]33.3 g/dL29.9 - 35.2 g/dLWashington County Memorial HospitalMCV (RBC) [Entitic vol]92.1 fL 81.0 - 99.0 fLNOColumbia Regional HospitalMONOCYTES ABSOLUTE AUTO0.5[facility] Monocytes/100 WBC (Bld)6.6 %1.7 - 12.0 %[facility] HealthcareNEUTROPHILS ABSOLUTE AUTO 5.3[facility] HealthcareNeutrophils/100 WBC (Bld)66.7 %43.0 - 75.0 %[facility] Platelet mean volume (Bld) [Entitic vol]9.8 fL9.5 - 13.5 fLNOMS [facility] EO #0.2[facility] HospitalTBH [id number] [facility] RBC4.41[facility] WBC8.0 N[facility]S HealthcareCLINISYNCNOMS HealthcareUS PELVIS W/ TRANSVAGINALon [id number], [place] [address] Ultrasound Report Signed Patient: ELLEN RAMIRES MR#: [id number] : 1990 Acct:[id number] Age/Sex: 34 / F ADM Date: 04/24/24 Loc: US Attending Dr: Caesar Broderick D.O. Ordering Physician: Caesar Broderick D.O. Date of Service: 04/24/24 Procedure(s): US pelvis w/ transvaginal Accession Number(s): [id number] cc: Caesar Broderick D.O.; Sabiha Aviles [place] [address] Patient Name: ELLEN RAMIRES MRN: [id number] date: 1990 Sex: F Assigned Patient Location: US Current Patient Location: Accession/Order Number: [id number] Exam Date: 04/24/2024 14:00 Report Date: 04/25/2024 [...] Dean M.D. Signed By: 04/25/2437 DD/ TD/TT: Customer Marketing Manager:TBHRadiology, Radiologist, - 04/25/2024 [place] [address] Ultrasound Report Signed Patient: ELLEN RAMIRES MR#: [id number] : 1990 Acct:[id number] Age/Sex: 34 / F ADM Date: 04/24/24 Loc: US Attending Dr: Caesar Broderick D.O. Ordering Physician: Caesar Broderick D.O. Date of Service: 04/24/24 Procedure(s): US pelvis w/ transvaginal Accession Number(s): [id number] cc: Caesar Broderick D.O.; Sabiha Aviles CELL TENDER [facility] [place] [id number] Patient Name: ELLEN RAMIRES MRN: [id number] date: 1990 Sex: F Assigned Patient Location: Current Patient Location: Accession/Order Number: [id number] Exam Date: 04/24/2024 14:00 Report Date: 04/25/2024 [...] M.D. Signed By: 04/25/2437 DD/ 3 TD/TT: Customer Marketing Manager: [facility] HospitalRadiology Study observation (narrative)[facility] HospitalUS PELVIS W/ TRANSVAGINALOrdered By: Radiologist Radiology on 84-36-4625BMAUWashington County Memorial Hospital Work Phone: aLL CBC WITH AUTO DIFFon [id number] ABSOLUTE AUTO0.1NOMS HealthcareBasophils/100 WBC (Bld)0.5 %0.2 - 2.0 %[facility] Eosinophils/100 WBC (Bld)2.8 %0.9 - 7.0 %[facility] HospitalErythrocyte distribution width (RBC) [Ratio]12.0 %11.0 - 15.0 %[facility] HospitalHematocrit (Bld) [Volume fraction]39.7 %36.0 - 48.0 %[facility] HospitalHemoglobin (Bld) [Mass/Vol]13.4 g/dL 12.0 - 16.0 g/dLWashington County Memorial HospitalIMMATURE GRANULOCYTES ABS AUTO0.03NOColumbia [facility] Hospital Immature granulocytes/100 WBC (Bld)0.3 %0.0 - 0.5 %[facility] HospitalInterpretation and review of laboratory resultsAbnormalNOColumbia Regional HospitalLYMPHOCYTES ABSOLUTE AUTO2.9NOMS [facility] HospitalLymphocytes/100 WBC (Bld)24.4 %20.5 - 60.0 %[facility] (RBC) [Entitic mass]30.7 pg26.7 - 34.[address] JosephHC (RBC) [Mass/Vol]33.8 g/dL29.9 - 35.2 g/dLMosaic Life Care at St. JosephV (RBC) [Entitic vol]91.1 fL 81.0 - 99.0 fLBL[facility] MOUNTAIN [facility]PITAL HealthcareMONOCYTES ABSOLUTE AUTO0.6[facility] Monocytes/100 WBC (Bld)5.2 %1.7 - 12.0 %[facility] HealthcareNEUTROPHILS ABSOLUTE AUTO 8.0HighNODE HealthcareNeutrophils/100 WBC (Bld)66.8 %43.0 - 75.0 %[facility] HealthcarePlatelet mean volume (Bld) [Entitic vol]10.1 fL9.5 - 13.5 fLWashington County Memorial HospitalTBH EO #0.3NOMS HealthcareTB VCI968CSTA [facility] HospitalTB RBC4.36NOMS [facility] HospitalTBH WBC12.0HighNODE HealthcareCLINISYNCNOMS HealthcarePOCT EKGOrdered By: Sheyla Powell on 24-05-4933AvaQxninoAdena Regional Medical CenterNo Panel Information Ordered By: Pinky Singh on 58-24-9298Kbvqy Strep (POC)[facility]Cyt[facility] Cervical or vaginal smear or scraping studyon 11-19-2022 [facility] HealthcareCOVID/FLU/RSV RT-PCRon 14-59-8776PPTE-CoV-2 (COVID-19) RNA PEACE+probe Ql (Unsp spec)PositiveNort [employer] Other COVID/FLU/RSV RT-PCRNegativeNort [employer] Other Vital Signs Date TimeVital SignValuePerforming FchbfetdhFgndxaez04-80-0554 13:42-0500Body mass index (BMI) [Ratio]43.33 kg/j4Kcadv Davie DO Work Phone: [facility] HospitalDjlicwwonl07-50-4447 13:42-0500Body wfqojl653.28 kgCorey Davie DO Work Phone: NOColumbia Regional HospitalAjnwzyewvz67-80-6606 13:42-0500Diastolic blood yzrbnhsr08 mm[Hg]Caesar Davie DO Work Phone: [phone] [place], [place] [address]Mecdfwufpt76-63-7921 13:42-0500Systolic blood yjjjusqx239 mm[Hg]Caesar Davie DO Work Phone: 1(419)[address] [place], [place] 4972610-15-2025 09:03-0400Diastolic blood xilxmtfc46 mm[Hg]Rody Uyen CELL TENDER Work Phone: 1(419)[facility] [place], [place] [address]Inhwbvbuoj24-13-8434 09:03-0400Systolic blood fwonontv461 mm[Hg]Rody Uyen CELL TENDER Work Phone: 1(419)[address] [place] [address]-15-2025 09:02-0400Body mass index (BMI) [Ratio]42.99 kg/z0Qwkjajhr Uyen CELL TENDER Work Phone: 1(397)[address] [place], [place] 4972610-15-2025 09:02-0400Body vdsjhe267.25 kgKristina Uyen CELL TENDER Work Phone: 1(419)[address] [place], [place] 4972610-09-2025 16:31-0400Body mass index (BMI) [Ratio]43.49 kg/j9Zozhhmtn Uyen CELL TENDER Work Phone: 1(262)[address] [place], [place] 4972610-09-2025 16:31-0400Body doxyvp952.73 kgKristina Uyen CELL TENDER Work Phone: 1(059)[facility] [place], [place] [address]Pthgccqxjr10-80-5587 16:31-0400Diastolic blood bnkqyaef19 mm[Hg]Rody Uyen CELL TENDER Work Phone: 1(419)[address] [place], [place] 4972610-09-2025 16:31-0400Systolic blood aiignsis251 mm[Hg]Rody Uyen CELL TENDER Work Phone: 1(401)[address] [place], [place] 4972610-02-2025 15:07-0400Body mass index (BMI) [Ratio]43.03 kg/n2Zvesspfi Uyen CELL TENDER Work Phone: 1(419)[address] [place], [place] 4972610-02-2025 15:07-0400Body .37 kgKristina Uyen CELL TENDER Work Phone: 1(067)[address] [place], [place] 4972610-02-2025 15:07-0400Diastolic blood atkgijel48 mm[Hg]Rody Qiu CELL TENDER Work Phone: 1(556)[address] [place], [place] 4972610-02-2025 15:07-0400Systolic blood icjsvsny578 mm[Hg]Rody Qiu CELL TENDER Work Phone: 1(419)[address] [place], [place] 4972609-26-2025 07:51-0400Body bawjdv818.7 cmYordy Cruz MD Work Phone: 1(419)[address] [place], [place] 0784009-26-2025 07:51-0400Body mass index (BMI) [Ratio]42.96 kg/m2Yordy Cruz MD Work Phone: 1(419)[address] [place], [place] 0784009-26-2025 07:51-0400Body bfyvlh970.14 kgYordy Cruz MD Work Phone: 1(419)[address] [place], [place] 0784009-26-2025 07:51-0400Diastolic blood voewhzkm72 mm[Hg]Yordy Cruz MD Work Phone: 1(419)[address] [place], [place] 0784009-26-2025 07:51-0400Heart rate 87 /Glenna Cruz MD Work Phone: 1(419)[address] [place], [place] 0784009-26-2025 07:51-0400Systolic blood kmzbsyms936 mm[Hg]Yordy Cruz MD Work Phone: 1(970)[address] [place], [place] 0784009-04-2025 11:30-0400Body mass index (BMI) [Ratio]42.88 kg/u0Wzlir Davie DO Work Phone: 1(658)[facility] [place], [place] [address]Hapddzvhgk46-23-8843 11:30-0400Body rggryw865.91 kgCorey Davie DO Work Phone: 1(634)[address] [place], [place] 4972609-04-2025 11:30-0400Diastolic blood onsvghol30 mm[Hg]Caesar Davie DO Work Phone: 1(949)[address] [place], [place] 4972609-04-2025 11:30-0400Systolic blood qbdztsad088 mm[Hg]Caesar Davie DO Work Phone: 1(523)[address] [place], [place] 4972608-21-2025 11:00-0400Body mass index (BMI) [Ratio]42.63 kg/h5Vyvlg Davie DO Work Phone: 1(498)470-[address] [place], [place] [address]Gsgugywdxe92-99-8347 11:00-0400Body .19 kgCorey Davie DO Work Phone: 1(593)307-[address] [place], [place] [address]Sponzlqtdr39-34-5618 11:00-0400Diastolic blood xceutcns21 mm[Hg]Caesar Davie DO Work Phone: 1(838)436-[address] [place], [place] [address]Viuyjcayws06-71-6105 11:00-0400Systolic blood qdygbalv653 mm[Hg]Caesar Davie DO Work Phone: 1(564)337-[address] [place], [place] [address]Ejspridxsm87-30-3143 11:42-0400Body mass index (BMI) [Ratio]42.29 kg/u4Jvukb Davie DO Work Phone: 1(356)243-[address] [place], [place] [address]Ovzpiaqnpe30-07-3902 11:42-0400Body aeqvso738.15 kgCorey Davie DO Work Phone: 1(824)397-[address] [place] [address]Fwaubazxpi29-33-8722 11:42-0400Diastolic blood vzutioxm09 mm[Hg]Caesar Davie DO Work Phone: 1(887)777-[address] [place], [place] [address]Frpurtnjef74-09-6964 11:42-0400Systolic blood luzmxuho640 mm[Hg]Caesar Davie DO Work Phone: 1(952)050-[address] [place], [place] [address]Uqzcopptzf72-81-4795 10:03-0400Body mass index (BMI) [Ratio]41.66 kg/y1PtxrrNYU [facility]07-11-2025 10:03-0400Body weight 124.29 kgNY[facility]07-11-2025 10:03-0400Diastolic blood kthohntv07 mm[Hg][facility]07-11-2025 10:03-0400Systolic blood wyblyprk847 mm[Hg][facility]05-15-2025 10:52-0400Body eammgs391.7 Gilmer Lopez MD Work Phone: [facility]05-15-2025 10:52-0400 Body mass index (BMI) [Ratio]40.84 kg/e9KkiwjvRobbie Lopez MD Work Phone: 1(216)[address] [place], [place] 9703305-15-2025 10:52-0400 Body pbsylyochdg30.81 [degF]Robbie Lopez MD Work Phone: 1(216)[address] [place], [place] 9703305-15-2025 10:52-0400 Body wqxsix337.84 kgRobbie Lopez MD Work Phone: 1(216)[address] [place], [place] 9703305-15-2025 10:52-0400 Diastolic blood tgjsxugb99 mm[Hg]Robbie Lopez MD Work Phone: 1(216)[address] [place], [place] 9703305-15-2025 10:52-0400 Heart rate73 /minRobbie Lopez MD Work Phone: 1(216)[address] [place], [place] 9703305-15-2025 10:52-0400 Systolic blood mm[Hg]Robbie Lopez MD Work Phone: 1(216)[address] [place], [place] 9703304-29-2025 13:38-0400 Body mass index (BMI) [Ratio]40.35 kg/q3Dioyk Davie DO Work Phone: 1(493)355-[address] [place], [place] [address]Aiqdtinduk62-11-0064 13:38-0400Body yhvlsc581.39 kgCorey Davie DO Work Phone: 1(143)816-[address] [place], [place] [address]Weruwzvmft60-34-2135 13:38-0400Diastolic blood bzpuqpij14 mm[Hg]Caesar Davie DO Work Phone: 1(113)914-[address] [place], [place] [address]Jpqvpoqhvy99-97-1853 13:38-0400Systolic blood mm[Hg]Caesar Davie DO Work Phone: 1(071)689-[address] [place], [place] [address]Cwzgrlsywj57-50-0008 14:36-0400Body mass index (BMI) [Ratio]40.75 kg/i1Zafev Davie DO Work Phone: 1(668)541-[address] [place], [place] [address]Rvgtjziluv86-55-0433 14:36-0400Body itlavk971.56 kgCorey Davie DO Work Phone: 1(528)684-[address] [place] [address]-21-2025 14:36-0400Diastolic blood mm[Hg]Caesar Davie DO Work Phone: 1(647)794-[address] [place], [place] [address]Vgnkdfoxjm53-72-6723 14:36-0400Systolic blood owkcyzfb258 mm[Hg]Caesar Davie DO Work Phone: 1(439)[facility] [place], [place] [address]Aweisfittf44-15-9942 14:03-0400Diastolic blood idcumoqr96 mm[Hg]Caesar Davie DO Work Phone: 1(091)[facility] [place], [place] [address]Gldinqalaq34-84-8373 14:03-0400Systolic blood memdotjm532 mm[Hg]Caesar Davie DO Work Phone: 1(078)[facility] [place], [place] [address]Emsjhkhhed83-04-4011 13:12-0500Body mass index (BMI) [Ratio]40.01 kg/b9Xbvtj Davie DO Work Phone: 1(482)[facility] [place], [place] [address]Bazealhwwj29-38-7979 13:12-0500Body ofkxhf918.35 kgCorey Davie DO Work Phone: 1(876)[facility] [place], [place] [address]Khoivkfzac91-41-1091 13:12-0500Diastolic blood mm[Hg]Caesar Davie DO Work Phone: 1(142)[facility] [place], [place] [address]Opsdwztxgg26-20-5678 13:12-0500Systolic blood ocgrcqet060 mm[Hg]Caesar Advie DO Work Phone: 1(804)[facility] [place], [place] [address]Exjokmzove99-54-1189 14:39-0400Body igttsk300.7 cmCorey Davie DO Work Phone: 1(760)[facility] [place], [place] [address]Cviimakugu06-39-5622 14:39-0400Body mass index (BMI) [Ratio]39.53 kg/m2Xofnx Davie DO Work Phone: 1(095)[facility] [place], [place] [address]Tueusfeesc83-61-6904 14:39-0400Body ilbpfx786.94 kgCorey Davie DO Work Phone: 1(603)[facility] [place], [place] [address]Dvnonakzxv59-69-3776 14:39-0400Diastolic blood mm[Hg]Caesar Davie DO Work Phone: 1(531)[address] [place], [place] 4972610-21-2024 14:39-0400Systolic blood mm[Hg]Caesar Davie DO Work Phone: [facility] HospitalLudviukdbc48-86-0573 11:39-0400Body pajhek767.84 kgCorey Davie DO Work Phone: [facility] HospitalBamdnwbjyy31-95-2887 11:39-0400Diastolic blood sjrnhzdu58 mm[Hg]Caesar Davie DO Work Phone: [facility] HospitalZehlgjnsqm31-60-6985 11:39-0400Systolic blood mmkjwcod907 mm[Hg]Caesar Davie DO Work Phone: 1(022)073-[address] [place], [place] [address]Cwaqfslcjc49-40-8903 09:36-0400Body .57 kgCorey Davie DO Work Phone: [facility] HospitalKzlrrneuvc31-18-7908 09:36-0400Diastolic blood dsazwips78 mm[Hg]Caesar Davie DO Work Phone: 1(686)963-[address] [place], [place] [address]Wkezsoeoiq81-18-1929 09:36-0400Systolic blood vhnprpna868 mm[Hg]Caesar Davie DO Work Phone: 1(206)094-[address] [place] [address]Ksqzxyrpbi63-08-6368 10:50-0400Body .7 Ji Fraire MD Work Phone: [facility]07-23-2024 10:50-0400Body mass index (BMI) [Ratio]40.66 kg/n5CochedJames Fraire MD Work Phone: 1(823)221-[address] [place], [place] 1447707-23-2024 10:50-0400Body .29 kgJames Fraire MD Work Phone: [facility]07-23-2024 10:50-0400Diastolic blood ivcfwohx18 mm[Hg]James Fraire MD Work Phone: [facility]07-23-2024 10:50-0400Heart rate 83 /minJames Fraire MD Work Phone: [facility]07-23-2024 10:50-3873GhT2% (BldA) [Mass fraction]98 %James Fraire MD Work Phone: [facility]07-23-2024 10:50-0400Systolic blood awfhdlbx104 mm[Hg]James Fraire MD Work Phone: [facility]04-04-2024 12:26-0400Body jzzxci389.72 cmReg[facility]04-04-2024 12:26-0400Body mass index (BMI) [Ratio]42.6 kg/h1WvdunbtwcRegency Hospital [facility] East04-04-2024 12:26-0400Body mesyrscpdpr73.3 [degF][facility]04-04-2024 12:26-0400Body ofuqei050.11 kgReg[facility] Hospital [facility]04-04-2024 12:26-0400Diastolic blood zixcykmz40 mm[Hg][facility] 11-24-2023 12:26-0400Heart rate75 /[facility] 11-24-2023 12:26-0400Respiratory rate18 /[facility] 11-24-2023 12:26-5446CwJ8% (BldA) [Mass fraction]98 %[facility]04-04-2024 12:26-0400Systolic blood wkijqpaa234 mm[Hg][facility]02-20-2023 11:35-0500Body sbrzok995.72 Glendy Singh Other [employer] Other 02-20-2023 11:35-0500Body mass index (BMI) [Ratio] 42.27 kg/v7IfxivwPinky Singh Other [employer] Other 02-20-2023 11:35-0500Body pavitqotlmy82.8 [degF]Pinky Singh Other [employer] Other 02-20-2023 11:35-0500Body yzvvyd009.1 kgPinky Singh Other [employer] Other 02-20-2023 11:35-0500Respiratory rate18 /minPinky Singh Other [employer] Other 02-20-2023 11:35-6969IzU4% (BldA) [Mass fraction]98 % Pinky Singh Other [employer] Other Encounters Encounter DateEncounter TypeCare ProviderFacilityStart: 06-24-2025 End: 15-61-0067Ppisem flowsheetCorey Davie DO Work Phone: N[facility]B [facility] OBGYNStart: 06-24-2025 End: 53-31-4922Reeyil flowsheetCorey Davie DO Work Phone: NOAS [facility] OBGYNStart: 06-24-2025 End: 31-87-5915Ggslyz outpatient visit 15 minutesCorey Davie DO Work Phone: noms [facility] OBGYNComment on above:Second trimester ([facility]); 25 weeks gestation of ([facility]); H/O pre-eclampsia in prior , currently ([facility]); Vitamin D deficiency; Chronic hypertension affecting ([facility]); Diabetes mellitus screeningStart: 06-24-2025 End: 14-78-6367tgeyzusjqgXVKGC FAZIONot AvailableStart: 06-18-2025 End: 23-72-9472Vhoecd outpatient visit 25 minutesYordy Cruz MD Work Phone: [phone]-Jyolu Medicine at [facility] Comment on above:Chronic hypertension affecting (Primary Dx); 20 weeks gestation of ; Anxiety disorder affecting , antepartum; Acute palmoplantar pustular psoriasis; Severe obesity due to excess calories affecting , antepartum ([facility]) Start: 06-18-2025 End: 98-62-7575xeykwxshktXWM [facility] HospitalStart: 06-18-2025 End: 80-84-0153qabwgxxxvsNEPCX [facility] HospitalStart: 06-05-2025 End: 96-45-7736Lcisfn flowsMark Qiu CELL TENDER Work Phone: NOMS [facility] OBGYNStart: 06-05-2025 End: 76-74-7874Yguuuh flowsMark Qiu CELL TENDER Work Phone: N[facility] OBGYNStart: 06-05-2025 End: 63-14-6778Lmvzxbdw flow Karel Qiu CELL TENDER Work Phone: NOMS [facility]man OBGYNComment on above:Second trimester ([facility] 23 weeks gestation of ([facility])Start: 06-05-2025 End: 20-10-3884xsoxntdihkOBOQPIJO UYENNot AvailableStart: 05-30-2025 End: 01-10-5499Kifevxdr flow Karel Qiu CELL TENDER Work Phone: NOM[facility] OBGYNComment on above:Chronic hypertension affecting ([facility]) (Primary Dx); Second trimester ([facility]); 22 weeks gestation of ([facility])Start: 05-30-2025 End: 26-85-2175eluwehwqibJQJOOGTL UYENNot AvailableStart: 05-30-2025 End: 36-95-2346Ymmvmc flowsMark Qiu CELL TENDER Work Phone: [facility] OBGYNStart: 05-30-2025 End: 05-28-9061Lnungo flowsMark Qiu CELL TENDER Work Phone: N[facility]BGYNStart: 05-24-2025 End: 53-39-9829Ymgjga OnlyAmy Nikkie LPNMaternal- Medicine at [facility]Comment on above:Acute palmoplantar pustular psoriasis (Primary Dx); Chronic hypertension affecting ; Severe obesity due to excess calories affecting , antepartum ([facility]); Hypertension affecting in second trimesterStart: 05-23-2025 End: 33-71-8831scckwiqkwsRRMUWUIR EBERLYNot AvailableStart: 05-23-2025 End: 69-78-5261Gujgswav flow Karel Qiu NP Work Phone: NOVR Aman OBGYNComment on above:Second trimester ([facility]); 21 weeks gestation of ([facility]); induced hypertension, antepartum ([facility]); Vitamin D deficiency; H/O pre-eclampsia in prior , currently ([facility])Start: 05-23-2025 End: 52-89-0242Nxyfyk Jennyfer Qiu NP Work Phone: NOXZ [facility] OBGYNStart: 05-23-2025 End: 61-61-5721Tmlhuu Jennyfer Qiu NP Work Phone: NOYU [facility] OBGYNStart: 05-23-2025 End: 60-76-8753Wbkhjcaqk Result EncounterCorey Davie DO Work Phone: noms External Department UnsolicitedStart: 05-17-2025 End: 43-39-6246Imhchp consultation new/estab patient 62 Hannah Hare MD Work Phone: [phone]-Jckss Medicine at [facility] Comment on above:Chronic hypertension affecting (Primary Dx); Acute palmoplantar pustular psoriasis; Severe obesity due to excess calories affecting , antepartum ([facility]); 20 weeks gestation of pregnancyStart: 05-17-2025 End: 18-02-2864Bhnauc OnlyAmy Nikkie LPNMaternal- Medicine at [facility]Comment on above:Acute palmoplantar pustular psoriasis (Primary Dx); Chronic hypertension affecting ; Severe obesity due to excess calories affecting , antepartum ([facility]); Hypertension affecting in second trimesterStart: 04-29-2025 End: 06-91-8739Tlsyrtyuy department patient visitCOMMUNTHE J[facility] Healthtart: 04-25-2025 End: 74-21-8670Kzjejn flowsheetCorey Davie DO Work Phone: noMS [facility] OBGYNStart: 04-25-2025 End: 59-83-9826Dwwaht flowsheetCorey Davie DO Work Phone: noMS [facility] OBGYNStart: 04-25-2025 End: 02-98-4152Ztforz outpatient visit 15 minutesCorey Davie DO Work Phone: noms Aman OBGYNComment on above:Screening, , for anatomic survey ([facility]); Second trimester ([facility]); 17 weeks gestation of ([facility]); Screen for STD (sexually transmitted disease); Need for maternal serum alpha-protein (MSAFP) screening ([facility]); induced hypertension, antepartum ([facility]); Vitamin D deficiencyStart: 04-25-2025 End: 67-36-9057wgcmpspivgFFBKF FAZIONot AvailableStart: 04-23-2025 End: 86-82-9350Poued Caroline Cruz MD Work Phone: [phone]-Zabtg Medicine at [facility] Start: 04-21-2025 End: 79-77-8888Zsklpnxqa Result EncounterCorey Davie DO Work Phone: noms External Department UnsolicitedStart: 04-21-2025 End: 12-03-5047Sonitmgcd Result EncounterCorey Davie DO Work Phone: noms External Department UnsolicitedStart: 04-19-2025 End: 88-68-0233VvrfdwBettina Moise RNMaternal- Medicine at [facility]Comment on above:Hypertension affecting in second trimester (Primary Dx)Start: 04-17-2025 End: 73-71-6685Xluoitkzu Result EncounterCorey Davie DO Work Phone: noms External Department UnsolicitedStart: 04-17-2025 End: 61-31-2252Tvtevpkwk Result EncounterCorey Davie DO Work Phone: no External Department UnsolicitedStart: 04-11-2025 End: 93-69-9838Cufdig flowsheetCorey Davie DO Work Phone: NOM[facility] [place] OBGYNStart: 04-11-2025 End: 14-57-6669Hcivem flowsheetCorey Davie DO Work Phone: NO [facility] OBGYNStart: 04-11-2025 End: 56-68-0157Otqtkz outpatient visit 15 minutesCorey Davie DO Work Phone: NOMS [place] OBGYNComment on above:15 weeks gestation of ([facility]); Second trimester ([facility]); Acute nonintractable headache, unspecified headache type; BP check; Gestational hypertension, antepartum ([facility]); induced hypertension, antepartum ([facility])Start: 04-11-2025 End: 71-06-8809Fqwrwua encounter statusCorey Davie DO Work Phone: NO HealthcareStart: 04-11-2025 End: 33-78-6195lyehbsidfmFALYD FAZIONot AvailableStart: 03-28-2025 End: 02-72-7546Iewnkm flowsheetCorey Davie DO Work Phone: NO [facility] OBGYNStart: 03-28-2025 End: 67-93-9197Bfptaj flowsheetCorey Davie DO Work Phone: no [facility] OBGYNStart: 03-28-2025 End: 44-57-7846Tlgptu outpatient visit 15 minutesCorey Davie DO Work Phone: NOMS [place] OBGYNComment on above:13 weeks gestation of ([facility]); Second trimester ([facility]); Acute nonintractable headache, unspecified headache typeStart: 03-28-2025 End: 24-75-2363rnebstqkwyKBFOZ FAZIONot AvailableStart: 03-20-2025 End: 89-91-1938Wrglpaort Result EncounterCorey Davie DO Work Phone: noms External Department UnsolicitedStart: 03-20-2025 End: 10-51-6417Jmpyhahje Result EncounterCorey Davie DO Work Phone: noms External Department UnsolicitedStart: 03-01-2025 End: 16-05-6319Vlkrqi outpatient visit 5 minutesFazio Nurse Noms Bcp ObNOMS BCP OBStart: 03-01-2025 End: 59-54-8827mswglsohstSVEJN FAZIONot AvailableStart: 01-16-2025 End: 83-20-1590Bqcpukbdb Result EncounterCorey Davie DO Work Phone: [facility] External Department UnsolicitedStart: 01-16-2025 End: 64-15-7699Hrrzcygfh Result EncounterCorey Davie DO Work Phone: [facility] External Department UnsolicitedStart: 01-03-2025 End: 62-66-2484Ccdfqxm encounter procedureRobbie Lopez MD Work Phone: Steve JaneComment on above:Encounter for preprocedural laboratory examination (Primary Dx); Abnormal uterine bleedingStart: 01-03-2025 End: 98-88-2131Dbiegfc encounter statusRobbie Lopez MD Work Phone: [facility] Work Phone: Start: 01-03-2025 End: 51-56-8543rgxeyigucaWMNQKV [facility]: 01-03-2025 End: 57-15-6060Pnizhiqyt for preprocedural laboratory examinationROBBIE Tapia [facility]: 12-18-2024 End: 57-62-4558Ounmmard Result EncounterCorey Davie DO Work Phone: [facility] External Department UnsolicitedStart: 12-18-2024 End: 30-90-0141Gsuvjvdw Result EncounterCorey Davie DO Work Phone: noMS External Department UnsolicitedStart: 12-18-2024 End: 36-79-3563Wsfnfzp encounter procedureCorey Davie DO Work Phone: n[facility] BCP OBComment on above:Skin moleStart: 12-18-2024 End: 38-74-9879jkfjodjhosMthim FazioFiFirelands [facility] Work Phone: Start: 12-18-2024 End: 24-00-5188Zcjqhudz ReferredCorey Davie DO Work Phone: [facility] Path Spec [facility] HospStart: 12-17-2024 End: 67-26-8047Belvojvap Result EncounterCorey Davie DO Work Phone: [facility] External Department UnsolicitedStart: 12-17-2024 End: 46-95-2968Tijdqvpiw Result EncounterCorey Davie DO Work Phone: noms External Department UnsolicitedStart: 12-10-2024 End: 60-36-5833Feazofm encounter procedureCorey Davie DO Work Phone: noms HealthcareStart: 12-10-2024 End: 89-52-5872Uljmffzx preventive med est patient 18-39 yrsCorey Davie DO Work Phone: NOMS BCP OBComment on above:Well woman exam with routine gynecological examStart: 12-10-2024 End: 66-18-5819zfgjxcqyhnJRDOX FAZIONot AvailableStart: 12-10-2024 End: 31-76-9023Lkgxyk flowsheetCorey Davie DO Work Phone: NOMS BCP OBStart: 12-10-2024 End: 19-65-3551Gxrxkw flowsheetCorey Davie DO Work Phone: NOMS BCP OBStart: 12-10-2024 End: 83-75-8604Jnnlvgdql Result EncounterCorey Davie DO Work Phone: noms External Department UnsolicitedStart: 11-16-2024 End: 06-58-2150Blfaqmger Result EncounterCorey Davie DO Work Phone: noms External Department UnsolicitedStart: 11-16-2024 End: 11-38-4386Ywrddurdh Result EncounterCorey Davie DO Work Phone: NOMS External Department UnsolicitedStart: 11-12-2024 End: 86-41-9258Mzqmzi outpatient visit 15 minutesCorey Davie DO Work Phone: noMS [facility] OBComment on above:Encounter for fertility planning; Acute cystitis without hematuria; PCOS (polycystic ovarian syndrome); Fallopian tube disorderStart: 11-12-2024 End: 56-14-2024Jqgngs flowsheetCorey Davie DO Work Phone: NOMS BCP OBStart: 11-12-2024 End: 76-30-5538Natlut flowsheetCorey Davie DO Work Phone: noms [facility] OBStart: 11-12-2024 End: 47-79-3743lgrjzuqjxxCTXRV FAZIONot AvailableStart: 11-03-2024 End: 74-51-7009Cpnlauiaw department patient visitCOMMUNTHE J[facility] HospitalStart: 10-18-2024 End: 15-31-9261Gdjzhymhm Result EncounterCorey Davie DO Work Phone: noms External Department UnsolicitedStart: 10-18-2024 End: 65-38-9935Gwbnlrwxd Result EncounterCorey Davie DO Work Phone: noms External Department UnsolicitedStart: 09-17-2024 End: 36-25-2735Pyraeccmp Result EncounterCorey Davie DO Work Phone: noms External Department UnsolicitedStart: 09-17-2024 End: 87-44-1172Aasxiwbda Result EncounterCorey Davie DO Work Phone: noms External Department UnsolicitedStart: 08-16-2024 End: 07-10-9727Wtfjylair Result EncounterCorey Davie DO Work Phone: noms External Department UnsolicitedStart: 08-16-2024 End: 40-06-5793Btkyknzyi Result EncounterCorey Davie DO Work Phone: noms External Department UnsolicitedStart: 07-23-2024 End: 43-11-0688Qnexvx flowsheetCorey Davie DO Work Phone: noms BCP OBStart: 07-23-2024 End: 12-10-1682Bglfnx flowsheetCorey Davie DO Work Phone: NOFK BCP OBStart: 07-23-2024 End: 48-76-1680aklrvtomyeZECWP FAZIONot AvailableStart: 07-23-2024 End: 83-33-1970Uzfjgi outpatient visit 15 minutesCorey Davie DO Work Phone: noms [facility] OBComment on above:PCOS (polycystic ovarian syndrome); Encounter for fertility planningStart: 07-18-2024 End: 28-30-3703Iodbvyjoh Result EncounterCorey Davie DO Work Phone: noms External Department UnsolicitedStart: 07-18-2024 End: 53-19-0813Vjnxaghsf Result EncounterCorey Davie DO Work Phone: NOOK External Department UnsolicitedStart: 06-11-2024 End: 65-54-8455Ucnwua follow up visit related to original pxCorey Davie DO Work Phone: NOEC [facility] OBComment on above:Postoperative visit; S/P laparoscopic procedureStart: 06-11-2024 End: 24-76-3018Xmavjh flowsheetCorey Davie DO Work Phone: noms BCP OBStart: 06-11-2024 End: 84-74-9103Pcszhz flowsheetCorey Davie DO Work Phone: NOQH BCP OBStart: 06-01-2024 End: 65-85-2385Npifmeiws Result EncounterCorey Davie DO Work Phone: NOFW External Department UnsolicitedStart: 06-01-2024 End: 11-26-0797Jqoszepbw Result EncounterCorey Davie DO Work Phone: NOMS External Department UnsolicitedStart: 05-03-2024 End: 04-21-0653Laspsk outpatient visit 15 minutesCorey Davie DO Work Phone: NOWG [facility] OBComment on above:Pre-op examination; Pelvic pain in female; Fallopian tube disorderStart: 05-03-2024 End: 42-32-6323Poidmwoljtrdm examination doneCorey Davie DO Work Phone: NOMS HealthcareStart: 04-25-2024 End: 72-12-4922Mmdpoqkex Result EncounterCorey Davie DO Work Phone: noms External Department UnsolicitedStart: 04-25-2024 End: 16-13-2830Esokbgyxn Result EncounterCorey Davie DO Work Phone: NORL External Department UnsolicitedStart: 04-24-2024 End: 72-52-0187Igqnkljmt Result EncounterCorey Davie DO Work Phone: noms External Department UnsolicitedStart: 04-24-2024 End: 14-39-9779Iladgjmvg Result EncounterCorey Davie DO Work Phone: NOGZ External Department UnsolicitedStart: 04-10-2024 End: 54-86-3814Lkhgor flowsheetCorey Davie DO Work Phone: NOMS BCP OBStart: 04-10-2024 End: 93-74-8278Wqabxt flowsheetCorey Davie DO Work Phone: NOMS BCP OBStart: 04-10-2024 End: 36-67-7502Lmllxl outpatient visit 15 minutesCorey Davie DO Work Phone: [facility] OBComment on above:Encounter for fertility planning; PCOS (polycystic ovarian syndrome); Pelvic pain in female; Abnormal uterine bleeding (AUB)Start: 03-13-2024 End: 18-31-6915Cpodmc outpatient visit 15 minutesJames Fraire MD Work Phone: [facility] CardiologyComment on above:Heart palpitations (Primary Dx)Start: 03-12-2024 End: 73-15-2641Ugbhdxfpe encounterJennshayne Powell [facility] CENTERProMedica Physicians CardiologyStart: 02-22-2024 End: 19-37-5321Xjyql abstractingScanning Provider ExternalProMedica Physicians CardiologyStart: 11-24-2023 End: 69-46-7899qlhxedjahaHfpadqkfr [facility] Work Phone: Start: 11-24-2023 End: 94-39-0734Mxftgav encounter procedureNorthern Regional [facility] Work Phone: Start: 10-11-2022 End: 97-13-6325vpjdxvodqbBdnmic Dymond Other [facility] [employer] Other Start: 78-81-7391Plgmeg outpatient new 20 minutes Pinky SinghFPG Urgent [facility] Procedures DateProcedureProcedure DetailPerforming ClinicianStart: 92-37-1619Ozmmh dip stick/tablet rgnt non-auto w/o micrscpCorey Davie DO Work Phone: Start: 07-75-5948Bitqi dip stick/tablet rgnt non-auto w/o micrscpKristina Uyen CELL TENDER Work Phone: Start: 62-71-2437Thfxw dip stick/tablet rgnt non-auto w/o micrscpKristina Uyen CELL TENDER Work Phone: Start: 03-47-5977ZTT, SERUM, OPEN SPINA BIFIDACorey Davie DO Work Phone: Start: 62-45-7735Csyac dip stick/tablet rgnt non-auto w/o micrscpCorey Davie DO Work Phone: Start: 52-64-5497QCU TOTAL PROTEIN 24 HOUR URINECorey Davie DO Work Phone: Start: 11-54-6903Jlvqa count complete automatedNot In System Ref ProvStart: 99-40-9848SWB CBC WITH AUTO DIFFCorey Davie DO Work Phone: Start: 97-74-8596Nuowv dip stick/tablet rgnt non-auto w/o micrscpCorey Davie DO Work Phone: Start: 54-90-6710Ycsne dip stick/tablet rgnt non-auto w/o micrscpCorey Davie DO Work Phone: Start: 02-21-0813Cpgyhapg Cathi Cruz MD Work Phone: Start: 13-73-6902Whrb scrn 1+ class nonchromoNot In System Ref ProvStart: 12-89-6776Mcixpujrkz glycosylated i0oLilmahql Provider ExternalStart: 67-48-7497Utgdtfhcn c antibodyNot In System Ref ProvStart: 21-55-1760DMU 1&2 AB/AG SCREEN (P24 AG)Not In System Ref ProvStart: 03-20-2025 Iaad ia hepatitis b surface antigenNot In System Ref ProvStart: 03-20-2025 SYPHILIS TOTAL(UNKNOWN SYPHILIS STATUS)Not In System Ref ProvStart: 03-20-2025 TYPE AND SCREENNot In System Ref ProvStart: 69-89-5793HCA CBC WITH AUTO DIFF Caesar Davie DO Work Phone: Start: 03-01-2025 End: 42-68-1752Lkjus dip stick/tablet rgnt non-auto w/o micrscpCorey Davie DO Work Phone: Start: 61-96-1328TLX PROGESTERONECorey Davie DO Work Phone: Start: 26-41-5242DRLCZOXGQ REQUEST FOR LAB CORPCorey Davie DO Work Phone: Start: 34-51-7271ABD PROGESTERONECorey Davie DO Work Phone: Start: 64-46-6332YUS,APTIMA HPV,AGE GDLNCorey UmBio DO Work Phone: Start: 58-01-7976Jyysfobjaju observation [Identifier] in Cervix by Cyto stainCorey Davie DO Work Phone: Start: 05-48-9241UZC PROGESTERONECorey Davie DO Work Phone: Start: 48-42-5846CCA PROGESTERONECorey UmBio DO Work Phone: Start: 34-28-8539BZM PROGESTERONECorey Davie DO Work Phone: Start: 18-00-1353DET PROGESTERONECorey Davie DO Work Phone: Start: 36-91-4991WCM PROGESTERONECorey Davie DO Work Phone: Start: 73-75-5415GEV CBC WITH AUTO DIFFCorey UmBio DO Work Phone: Start: 94-16-2362AJ PELVIS W/ TRANSVAGINALCorey Davie DO Work Phone: Start: 88-07-4539KMC CBC WITH AUTO DIFFCorey UmBio DO Work Phone: Start: 98-66-4059Exj routine ecg w/least 12 lds w/i&r James Fraire MD Work Phone: Start: 49-62-3594Inwet Strep (POC)Start: 11-23-2022 Microscopic observation [Identifier] in Cervix by Cyto stainScanning External Start: 14-93-0214Umttbvkjqzo observation [Identifier] in Cervix by Cyto stain Caesar UmBio DO Work Phone: Start: 85-62-7398Bgkw cerv/vag auto thin layer prep mnl screenAmy Zackary ELECTRO MECHANICAL ENGINEER Work Phone: Plan of Treatment DateCare ActivityDetailAuthorStart: 28-66-1152Nmkubk Vaccines (1 of 2)Zoster Vaccines (1 of 2)[facility] CenterStart: 75-51-3215Znrcuszyx for malignant neoplasm of cervixNOMS HealthcareStart: 68-98-8634Pqqwbwmpa for malignant neoplasm of cervixNOMS HealthcareStart: 81-40-7460Prdti BMI Screening Adult BMI ScreeningHolzer Health System SystemStart: 46-37-4596Nphdxcm Screening Tobacco ScreeningNovant Health Ballantyne Medical Centertart: 12-16-2025 End: 08-14-1728Fhjyuxp encounter procedureNOMS BCP OBStart: 17-94-4956Cairocpeb for malignant neoplasm of cervixPap SmearHolzer Health System SystemStart: 42-84-9210Uvwmwupcu for malignant neoplasm of cervixPap SmearNODE Healthcare Start: 46-24-1823Quqjvdx ScreeningTobacco ScreeningHolzer Health System SystemStart: 07-09-2025 End: 59-24-2686Ugeesoa encounter /18/2025 1:20 PM EST Routine LIANA HEAD [address] [place], [phone] Bethany Simon PA [address] [place] [address] LIANA LAWSONGYNStart: 06-24-2025 End: 57-49-0458RJM panel - Blood by Automated countCBC Lab Routine Diabetes mellitus screening Expected: 06/24/2025 (Approximate), Expires: 06/24/2026[facility] Work Phone: comment on above:Expected: 06/24/2025 (Approximate), Expires: 06/24/2026Start: 06-24-2025 End: 98-76-2565Eskvgejgrze of glucose 1 hour after glucose challenge for glucose tolerance testGlucose tolerance, 1 hour Lab Routine Diabetes mellitus screening Expected: 06/24/2025 (Approximate), Expires: 06/24/2026NODE HealthcareComment on above:Expected: 06/24/2025 (Approximate), Expires: 06/24/2026Start: 06-24-2025 End: 69-16-2172PZ biophysical profile w non stress testUS biophysical profile w non stress test Imaging Routine 25 weeks gestation of ([facility]) H/O pre-eclampsia in prior , currently ([facility]) Chronic hypertension affecting ([facility]) Expected: 06/24/2025 (Approximate), Expires: 12/22/2025NOMS HealthcareComment on above: Expected: 06/24/2025 (Approximate), Expires: 12/22/2025Start: 06-24-2025 End: 87-07-1385YU for pregnancyUS OB follow up transabdominal approach Imaging Routine H/O pre-eclampsia in prior , currently ([facility]) Chronic hypertension affecting ([facility]) Expected: 06/24/2025, Expi res: 10/22/2025NODE HealthcareComment on above:Expected: 06/24/2025, Expires: 10/22/2025Start: 06-24-2025 End: 43-75-7939Zktbmxj encounter procedureNOMS Aman OBGYNComment on above: ArrivedStart: 06-18-2025 End: 31-86-7414Puyotochpbze consultation with vjvqmrb2806/18/2025 2:00 PM EDT Telemedicine Maternal- Medicine at [facility] [address] [place] [phone] Yordy Cruz MD [address] [place] [address] [facility] 06-18-2025 End: 56-96-1643Nimrrod encounter /28/2025 8:00 AM EDT Appointment [facility] - Ultrasound [address] [address] [phone] [facility] - UltrasoundStart: 06-05-2025 End: 53-14-1466Gdmtgiv encounter procedureNOMS [place] OBGYNComment on above: ArrivedStart: 05-30-2025 End: 98-85-0701Osnosqp encounter procedureNOMS Aman OBGYNComment on above: ArrivedStart: 05-25-2025 End: 91-13-2156Mioxn fetoprotein, maternalAlpha fetoprotein, maternal Lab Routine Need for maternal serum alpha-protein (MSAFP) screening ([facility]) Expected: 05/25/2025 (Approximate), Expires: 05/25/2025NOMS HealthcareComment on above:Expected: 05/25/2025 (Approximate), Expires: 05/25/2025Start: 05-23-2025 End: 85-64-5888Kxrtytv encounter zksaqxgjg44/02/2025 2:30 PM EDT Routine LIANA HEAD [address] [place], [phone] Rody Qiu, CELL TENDER [address] [place] [phone] LIANA LAWSONGYNStart: 05-20-2025 End: 01-42-2192HU MFM with or without consultUS MFM with or without consult Imaging Routine Hypertension affecting in second trimesterExpected: 05/20/2025 (Approximate), Expires: 04/19/2026[facility] Work Phone: comment on above:Expected: 05/20/2025 (Approximate), Expires: 04/19/2026Start: 05-17-2025 End: 05-27-3134GE MFM with or without consultUS MFM with or without consult Imaging Routine 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 Severe obesity due to excess calories affecting , antepartum ([facility]) Hypertension affecting in second trimester Expected: 05/17/2025, Expires: 05/17/2026[facility] Work Phone: Comment on above:Expected: 05/17/2025, Expires: 05/17/2026Start: 05-17-2025 End: 30-65-9074Roifyxh encounter procedureProMartin [facility] US ImagingStart: 04-25-2025 End: 77-44-9885Aqyjvyk encounter procedureNOHoboken [facility] Medical Center OBGYNComment on above: ArrivedStart: 14-33-3948ITMUH-19 Vaccine ( season)COVID-19 Vaccine ()NOMS HealthcareStart: 55-29-7978Zrscrgbtg vaccinationNOMS HealthcareStart: 04-11-2025 End: 95-88-8020Axlwoyh aminotransferase [Enzymatic activity/volume] in Serum or PlasmaALT Lab Routine Gestational hypertension, antepartum ([facility]) induced hypertension, antepartum ([facility]) Expected: 04/11/2025 (Approximate), Expires: 04/11/2026NODE HealthcareComment on above:Expected: 04/11/2025 (Approximate), Expires: 04/11/2026Start: 04-11-2025 End: 36-67-5116Vqepayjey aminotransferase [Enzymatic activity/volume] in Serum or PlasmaAST Lab Routine Gestational hypertension, antepartum ([facility]) induced hypertension, antepartum ([facility]) Expected: 04/11/2025 (Approximate), Expires: 04/11/2026NODE HealthcareComment on above:Expected: 04/11/2025 (Approximate), Expires: 04/11/2026Start: 04-11-2025 End: 82-42-3402SPJ W Auto Differential panel - BloodCBC and differential Lab Routine Gestational hypertension, antepartum ([facility]-HCC) induced hy pertension, antepartum ([facility]-HCC) Expected: 04/11/2025 (Approximate), Expires: 04/11/2026[facility] HealthcareComment on above:Expected: 04/11/2025 (Approximate), Expires: 04/11/2026Start: 04-11-2025 End: 68-17-9874Agigdcyfvt [Mass/volume] in Serum or PlasmaCreatinine Lab Routine Gestational hypertension, antepartum ([facility]HS-HCC) induced hypertension, antepartum ([facility]-HCC) Expected: 04/11/2025 (Approximate), Expires: 04/11/2026[facility] [employer] Work Phone: comment on above:Expected: 04/11/2025 (Approximate), Expires: 04/11/2026Start: 04-11-2025 End: 44-11-5075Whlibop dehydrogenase [Enzymatic activity/volume] in Serum or Plasma by Lactate to pyruvate reactionLactate dehydrogenase Lab Routine Gestational hypertension, antepartum ([facility]-HCC) induced hypertension, antepartum ([facility]-HCC) Expected: 04/11/2025, Expires: 04/11/2026[facility] Comment on above:Expected: 04/11/2025, Expires: 04/11/2026Start: 04-11-2025 End: 69-21-5544Xzoflqr, urine, 24 hourProtein, urine, 24 hour Lab Routine Gestational hypertension, antepartum ([facility]-HCC) induced hypertension, antepartum ([facility]-HCC) Expected: 04/11/2025 (Approximate), Expires: 04/11/2026[facility] HealthcareComment on above:Expected: 04/11/2025 (Approximate), Expires: 04/11/2026Start: 04-11-2025 End: 07-60-6292Jd and pttPt and ptt Lab Routine Gestational hypertension, antepartum ([facility]-HCC) induced hypertension, antepartum ([facility]-HCC) Expected: 04/11/2025, Expires: 04/11/2026[facility] HealthcareComment on above: Expected: 04/11/2025, Expires: 04/11/2026Start: 04-11-2025 End: 80-08-5838Kywfc [Mass/volume] in Serum or PlasmaUric acid Lab Routine Gestational hypertension, antepartum ([facility]-HCC) induced hypertension, antepartum ([facility]-HCC) Expected: 04/11/2025 (Approximate), Expires: 04/11/2026[facility] HealthcareComment on above:Expected: 04/11/2025 (Approximate), Expires: 04/11/2026Start: 04-11-2025 End: 89-89-6187Eqhu nitrogen [Mass/volume] in Serum or PlasmaBUN Lab Routine Gestational hypertension, antepartum ([facility]-HCC) induced hypertension, antepartum ([facility]) Expected: 04/11/2025, Expires: 04/11/2026[facility] Healthcare Comment on above:Expected: 04/11/2025, Expires: 04/11/2026Start: 04-11-2025 End: 63-98-7288Ymjiaaj encounter procedureNOMS Aman OBGYNComment on above: ArrivedStart: 03-28-2025 End: 64-70-2032Eokvagh encounter procedureNOMS BCP OBComment on above:Arrived Start: 86-00-3653Chdjl BMI ScreeningAdult BMI ScreeningHolzer Health System System Start: 73-83-7320Kgjcsyb ScreeningTobacco ScreeningNovant Health Ballantyne Medical Centertart: 03-01-2025 End: 54-99-6368HNC/RhABO/Rh Lab Routine Missed menses , unspecified gestational age ([facility]) Expected: 03/01/2025 (Approximate), Expires: 03/01/2026NODE HealthcareComment on above:Expected: 03/01/2025 (Approximate), Expires: 03/01/2026Start: 03-01-2025 End: 98-68-0569Orznq type and Indirect antibody screen panel - BloodType and screen Lab Routine Missed menses , unspecified gestational age ([facility]) Expected: 03/01/2025 (Approximate), Expires: 03/01/2026[facility] Healthcare Work Phone: comment on above:Expected: 03/01/2025 (Approximate), Expires: 03/01/2026Start: 03-01-2025 End: 26-00-4757Boovr of abuse panel - Urine by Screen methodRapid drug screen, urine Lab Routine , unspecified gestational age ([facility]) Encounter for supervision of normal first in first trimester ([facility]) Expected: 03/01/2025 (Approximate), Expires: 03/01/2026[facility] HealthcareComment on above: Expected: 03/01/2025 (Approximate), Expires: 03/01/2026Start: 02-03-2025 End: 04-78-3501Wzldxoivkozckabphh ( test) [Presence] in UrinePOCT , urine manually resulted Point of Care Testing Routine Encounter for preprocedural laboratory examination Expected: 02/03/2025 (Approximate), Expires: 04/05/2025[facility] Work Phone: Comment on above:Expected: 02/03/2025 (Approximate), Expires: 04/05/2025Start: 02-03-2025 End: 67-68-0966ZmpgqsqpeawzkrnNflqllohwywjbgg Procedures Routine Abnormal uterine bleeding Expected: 02/03/2025 (Approximate), Expires: 01/03/2026[facility] Service Area Work Phone: Comment on above:Expected: 02/03/2025 (Approximate), Expires: 01/03/2026Start: 02-03-2025 End: 82-11-2252DA.doppler Uterus and Fallopian tubes W saline IUUS sonohysterogram Imaging Routine Abnormal uterine bleeding Expected: 02/03/2025 (Approximate), Expires: 01/03/2026[facility] Work Phone: Comment on above:Expected: 02/03/2025 (Approximate), Expires: 01/03/2026Start: 12-18-2024 End: 75-78-3568Afcfshi encounter wppvmomwz26/29/2025 1:30 PM EDT Procedure Visit [facility] [address] [phone] Caesar Brodreick, DO [address] [place] [address] NOMS BCP OBStart: 31-16-0067IdsuaikziAultman Alliance Community Hospitaltart: 12-10-2024 End: 40-51-9568Izvnprf encounter procedureNOMS BCP OBComment on above:Arrived Start: 11-12-2024 End: 08-33-7926Xpynyby encounter procedureNOMS BCP OBComment on above:Arrived Start: 07-23-2024 End: 31-14-5974Fmvgcwk encounter tkarjwspn64/02/2024 1:00 PM EST Office Visit [facility] [address] [place] [address] Caesar Broderick, DO [address] [place] [address] [place] [address] NOMS BCP OBStart: 06-11-2024 End: 51-43-0120Ncrwgsk encounter dxegkjxig26/21/2024 2:20 PM EDT Office Visit [facility] [address] [place] [address] Caesar Broderick, DO [address] [place] [address] [place] [address] ArrivedNOMS BCP OBComment on above:ArrivedStart: 06-01-2024 End: 64-99-7056Scgnrcq encounter tupvwhhoi28/11/2024 8:30 AM EDT Procedure Visit [facility] EXT DEP Caesar Broderick, DO [address] [place] [address] [place] [address] NOMS EXT DEPStart: 05-03-2024 End: 21-30-4106Ylcagun encounter owkzzfjsx02/12/2024 11:40 AM EDT Consult [facility] OB [address] [place] [address] Caesar Broderick, DO [address] [place] [address] [place] [address] NOMS BCP OBStart: 74-20-8279QBGOY-19 Vaccine ( season)COVID-19 Vaccine ( season)[facility] Start: 11-69-3131Fpgsothfc vaccinationNODE HealthcareStart: 04-10-2024 End: 03-63-3636Wxkxnhkspxroy hormone (AMH)Antimullerian hormone (AMH) Lab Routine PCOS (polycystic ovarian syndrome) Expected: 04/10/2024 (Approximate), Expires: 04/10/2025NOMS HealthcareComment on above:Expected: 04/10/2024 (Approximate), Expires: 04/10/2025Start: 04-10-2024 End: 34-05-3604UEPBLBGI Lab Routine PCOS (polycystic ovarian syndrome) Expected: 04/10/2024 (Approximate), Expires: 04/10/2025NOMS HealthcareComment on above: Expected: 04/10/2024 (Approximate), Expires: 04/10/2025Start: 04-10-2024 End: 75-18-3470IF for pregnancyUS PELVIS-TRANSVAG IF INDICATED Imaging Routine PCOS (polycystic ovarian syndrome) Pelvic pain in female Expected: 04/10/2024 (Approximate), Expires: 04/10/2025NO HealthcareComment on above:Expected: 04/10/2024 (Approximate), Expires: 04/10/2025Start: 04-10-2024 End: 87-84-6281Htlrhbm encounter musfbdcfj05/20/2024 9:10 AM EDT Office Visit [facility] OB [address] [place] [address] Caesar Broderick, [address] [place] [address] [facility] OBComment on above:ArrivedStart: 03-13-2024 End: 99-19-6285Kcgdqcs encounter fjaradnwk41/23/2024 11:00 AM EDT Office Visit [facility] [address] [place] [address] James Fraire MD [address] [facility] [place], [phone] [facility] CardiologyStart: 08-34-4354Yfdmu BMI ScreeningAdult BMI ScreeningProCleveland Clinic Euclid Hospitalca Health SystemStart: 87-54-8409Flpxbcs ScreeningTobacco ScreeningProCleveland Clinic Euclid Hospitalca [facility] SystemStart: 82-62-0107VPJ Vaccines (1 - 3-dose SCDM series)HPV Vaccines (1 - 3-dose SCDM series)[facility] HospitalStart: 80-48-0592QPoZ/Tdap/Td Vaccines (1 - Tdap)DTaP/Tdap/Td Vaccines (1 - Tdap)[facility]: 37-34-6093Jqzqvlubl for malignant neoplasm of cervixHPV/[facility]otestUnWayne Hospital: 28-81-1217MTdZ,Tdap and Td Vaccines (1 - Tdap) DTaP,Tdap and Td Vaccines (1 - Tdap)[facility] Health SystemStart: 2011 Hepatitis B Vaccines (1 of 3 - 19+ 3-dose series)Hepatitis B Vaccines (1 of 3 - 19+ 3-dose series)[facility]: [phone] BMI Follow Up PlanAdult BMI Follow Up PlanNovant Health Ballantyne Medical Centertart: 2010 Hepatitis C screeningHepatitis C ScreeningFisher-[facility]itus [facility] Start: [id number] of varicella vaccinationVaricella Vaccines (1 of 2 - 13+ 2-dose series)[facility] HealthcareStart: [phone] vaccinationVaricella Vaccines (1 of 2 - 13+ 2-dose series)[facility]: [phone] ScreeningDepression ScreeningProMagruder Hospitaltart: 86-93-6819OUuW/Tdap/Td Vaccines (1 - Tdap)DTaP/Tdap/Td Vaccines (1 - Tdap)[facility] Hospital[facility]: 30-29-4132VJR Vaccines (1 of 1 - Standard series)MMR Vaccines (1 of 1 - Standard series)[facility]: 15-44-3971ANS screeningHIV ScreeningUnWayne Hospital: 62-13-3060Nhutd panelLipid PanelOhioHealth Shelby Hospital: 23-96-1037Tqauny Adult PhysicalYearly Adult PhysicalUnOhioHealth Van Wert HospitalBacteria identified in Urine by CultureUrine culture Microbiology Routine Missed menses Ordered: 03/01/2025[facility] HealthcareComment on above:Ordered: 5CBC W Auto Differential panel - BloodCBC and differential Lab Routine PCOS (polycystic ovarian syndrome) Ordered: 04/10/2024[facility] HealthcareComment on above:Ordered: 04/10/2024BC W Auto Differential panel - BloodCBC and differential Lab Routine Missed menses , unspecified gestational age ([facility]) Ordered: 03/01/2025[facility] HealthcareComment on above:Ordered: 03/01/2025HLAMYDIA TRACHOMATIS (GENITO/STI)CHLAMYDIA TRACHOMATIS (GENITO/STI) Lab Routine Screen for STD (sexually transmitted disease) Ordered: 04/25/2025[facility] HealthcareComment on above:Ordered: 04/25/2025 End: 80-92-1251Kxihaujimf, urine, 24 hourCreatinine, urine, 24 hour Lab Routine Chronic hypertension affecting 20 weeks gestation of 1 Occurrences starting 05/17/2025 until 05/17/2026ProM[facility] Hospital Health SystemComment on above:1 Occurrences starting 05/17/2025 until 05/17/2026ytology Cervical or vaginal smear or scraping studyPap Smear Pathology and Cytology Routine Well woman exam with routine gynecological exam Ordered: 12/10/2024[facility] Healthcare Work Phone: comment on above:Ordered: 12/10/2024DHEA-sulfateDHEA- sulfate Lab Routine PCOS (polycystic ovarian syndrome) Ordered: 04/10/2024[facility] HealthcareComment on above:Ordered: 04/10/2024Follicle stimulating hormone Follicle stimulating hormone Lab Routine PCOS (polycystic ovarian syndrome) Ordered: 04/10/2024[facility] HealthcareComment on above:Ordered: 04/10/2024hCG, quantitative, pregnancyhCG, quantitative, Lab Routine PCOS (polycystic ovarian syndrome) Ordered: 04/10/2024[facility] Healthcare Work Phone: comment on above:Ordered: 04/10/2024Hemoglobin A1c/Hemoglobin.total in BloodHemoglobin A1c Lab Routine Pelvic pain in female Abnormal uterine bleeding (AUB) Ordered: 04/10/2024[facility] HealthcareComment on above:Ordered: 04/10/2024Hemoglobin A1c/Hemoglobin.total in BloodHemoglobin A1c Lab Routine Missed menses , unspecified gestational age ([facility]) Ordered: 03/01/2025[facility] HealthcareComment on above:Ordered: 03/01/2025Hepatitis B virus surface Ag [Presence] in Serum or Plasma by ImmunoassayHepatitis B surface antigen Lab Routine Missed menses , unspecified gestational age ([facility]) Ordered: 03/01/2025[facility] HealthcareComment on above:Ordered: 03/01/2025Hepatitis C virus Ab [Presence] in Serum or Plasma by Immunoassay Hepatitis C antibody Lab Routine Missed menses , unspecified gestational age ([facility]) Ordered: 03/01/2025[facility] HealthcareComment on above: Ordered: 03/01/2025HIV-1/HIV-2 antigen/antibody combination immunoassayHIV-1 and HIV-2 antibodies Lab Routine Missed menses , unspecified gestational age ([facility]) Ordered: 03/01/2025[facility] HealthcareComment on above:Ordered: 03/01/2025Human papilloma virus DNA [Presence] in Unspecified specimen by Probe with amplificationHPV DNA probe, amplified Microbiology Routine Well woman exam with routine gynecological exam Ordered: 12/10/2024[facility] HealthcareComment on above:Ordered: 12/10/2024Luteinizing hormoneLuteinizing hormone Lab Routine PCOS (polycystic ovarian syndrome) Ordered: 04/10/2024[facility] HealthcareComment on above:Ordered: 04/10/2024 End: 79-03-1890Dskwvywjlfg peptide B [Mass/volume] in BloodB-type natriuretic peptide Lab Routine Chronic hypertension affecting 20 weeks gestation of 1 Occurrences starting 05/17/2025 until 05/17/2026[facility] Work Phone: Comment on above:1 Occurrences starting 05/17/2025 until 05/17/2026Natriuretic peptide B [Mass/volume] in BloodB-type natriuretic peptide Lab Routine Chronic hypertension affecting 20 weeks gestation of 05/17/2025 9:[address] [facility] HospitalNeisseria gonorrhoeae DNA [Presence] in Unspecified specimen by PEACE with probe detectionNeisseria gonorrhea DNA probe, direct Lab Routine Screen for STD (sexually transmitted disease) Ordered: 04/25/2025[facility] HealthcareComment on above:Ordered: 04/25/2025 End: 33-40-9684Myligpc, urine, 24 hourProtein, urine, 24 hour Lab Routine Chronic hypertension affecting 20 weeks gestation of 1 Occurrences starting 05/17/2025 until 05/17/2026[facility] SystemComment on above:1 Occurrences starting 05/17/2025 until 05/17/2026Reagin Ab [Presence] in Serum by RPRRPR Lab Routine Missed menses , unspecified gestational age ([facility]) Ordered: 03/01/2025[facility] HospitalComment on above:Ordered: 03/01/2025Rubella antibody, IgGRubella antibody, IgG Lab Routine Missed menses , unspecified gestational age ([facility]) Ordered: 03/01/2025[facility] HealthcareComment on above:Ordered: 03/01/2025SURESWAB(R) ADVANCED VAGINITIS PLUS, TMASURESWAB(R) ADVANCED VAGINITIS PLUS, TMA Pathology and Cytology Routine Screen for STD (sexually transmitted disease) Ordered: 04/25/2025[facility] Work Phone: comment on above:Ordered: 04/25/2025Thyrotropin [Units/volume] in Serum or PlasmaTSH Lab Routine PCOS (polycystic ovarian syndrome) Ordered: 04/10/2024[facility] HospitalComment on above:Ordered: 04/10/2024 Thyroxine (T4) free [Mass/volume] in Serum or PlasmaT4, free Lab Routine PCOS (polycystic ovarian syndrome) Ordered: 04/10/2024[facility] HospitalComment on above:Ordered: 04/10/2024 Payers DatePayer CategoryPayerPollucas [facility] [id number]-pay2023Medicaid [id number] [id number] 2..[id number] 2.0.1.226132.3.57[id number] 2.0.1.489710.3.579.2.245217-77-3063Dlyavcn [id number] 2.0.1.044821.3.57[id number] 2.16840.1.576547.3.57[id number] 2.16840.1.129904.3.57[id number] 2.16840.1.160859.3.57[id number] 2.16840.1.471013.3.57[id number] 2..1.734982.3.57[id number] 2..1.094771.3.57[id number] 2.0.1.206173.3.57[id number] 2..1.360690.3.57[id number] 2..1.222347.3.57[id number] 2..1.904583.3.57[id number] 2.840.1.918726.3.57[id number] 2.0.1.836856.3.57[id number] 2.16840.1.278047.3.57[id number] 2.840.1.048965.3.57[id number] 2.16.840.1.692282.3.579.[id number] 2.16.840.1.632919.3.579.[id number] 2.16.840.1.25[id number] 2.16.840.1.286390.3.579.2.531 Social History DateTypeDetailFacilityStart: 02-22-2024 End: 58-00-2114Sbr Assigned At [facility] [employer] Other Start: 14-19-2802Wsn Assigned At [facility] HospitalTobacco smoking status NHISTobacco smoking consumption unknownNODE HealthcareStart: 09-70-4868Auo assigned at birthNot on fileProMoody Hospital VenuCare Medical SystemStart: 10-09-2022 End: 41-45-3246Yjjudbx smoking status NHISNever smoked tobaccoProMoody Hospital VenuCare Medical SystemStart: 10-09-2022 End: 94-77-5856Urfckal use and exposureSmokeless tobacco non-userProMoody Hospital VenuCare Medical SystemStart: 02-22-2024 End: 46-49-4479Lqbilxsud beverage intakeEx-drinker (finding)[facility] SystemStart: 02-22-2024 End: 31-90-0195Twtrdbl of Social functionProMediSt. Mary's Medical Center SystemStart: 80-37-8295Vptsbe the past 12 months we worried whether our food would run out before we got money to buy more.Never TrueProCleveland Clinic Euclid HospitalProprietárioDireto SystemStart: 09-30-2022 End: 53-73-7445TdcWpbaeb (finding)[facility] Hospitaltart: 10-81-9757Ygyxouuhy beverage intakeLifetime non-drinker (finding)[facility] Work Phone: Start: 12-24-2024 End: 93-10-6655Xfuhyglz to SARS-CoV-2 (event)Not sureUnOhioHealth Van Wert HospitalStart: 47-02-2001VokxudhbhXBGQ Healthcare Functional Status CdzsTblmfixnohGgmnkmDmnnfkwb13-93-0563Ujmyfjm Health Questionnaire 2 item (PHQ- 2) [Reported][facility] HospitalKwpbpfqjve00-59-3995Xdcjfxs Health Questionnaire 2 item (PHQ- 2) [Reported][facility] Work Phone: 1(911) 176-317505035866-17-1880Desyhviv - suicide severity rating scale screener - recent [C-SSRS][facility] Work Phone: Clinical Notes 10-11-2022 to 06-24-2025 Note Date & GhqcGworCljyrvyt03-29-0594 History of Present illness Narrative* Karoline Casillas, [...] hypertension, antepartum ([facility]) 04/25/2025 Vitamin D deficiency 05/23/2025 H/O pre-eclampsia in prior , currently ([facility]) 05/23/2025 Resolved Ambulatory Problems Diagnosis Date [...] nursing note reviewed. Exam conducted with a algebra teacher present. Vitals: Estimated body mass index is 43.33 kg/m as calculated from the following: Height as of 06/11/24: 5' 8 . Weight as of this encounter: 285 lb. BP: 150/86 Patient's last menstrual period was 12/26/2024. Assessment/Plan ICD-10-CM 1. Second trimester ([facility]) Z34.92 POCT urinalysis dipstick manually resulted 2. 25 weeks gestation of ([facility]) Z3A.25 labetalol (Normodyne) 100 MG tablet 3. H/O pre-eclampsia in prior , currently ([facility]) O09.299 labetalol (Normodyne)100 MG tablet 4. Vitamin D deficiency E55.9 5. Chronic hypertension affecting ([facility]) O10.919 labetalol (Normodyne) 100 MG tablet [...] given for patient to get scheduled at [facility] F[facility] and [facility] Scheduling. Patient to return to clinic in 2 weeks for routine OB appointment. Patient has had ER visits since last appointment due to headaches and elevated BP. Patient to have no lifting and to rest while off work. Documented by Karoline Casillas LPN on behalf of: Caesar Broderick DO documented in this encounterWashington County Memorial HospitalHhzltauzlv49-00-1740 History of Present illness Narrative* Yordy Cruz [...] TESTS AND ULTRASOUND REPORTS: Referral records and [facility] chart were reviewed Pertinent Ultrasound [...] ultrasound, attempt completion in 4 weeks through [facility] serial growth ultrasounds every 4 weeks [...] patient is in complete care of her collar setter. Patient does have ultrasound and office visit scheduled with us. Thank you for allowing me to participate in the care of Ellen Ramires. If there any questions please do not hesitate to contact us. Yordy Cruz MD Maternal- Medicine [facility] [address] [place] [address] This document was created with [employer] technology. Though I make every effort to review the dictation as it is transcribed, on occasion the spoken word can be misinterpreted by the technology leading to inappropriate words, phrases, or sentences. This note is addressed to the requesting provider as a consultation for clinical guidance. Specificmedical abbreviations are occasionally used and those are generally approved by the [place]?Board of?Obstetrics and?Gynecology?as well as?Rama tapia abbreviations. The above plan of care was based solely on the diagnoses for which a consultation was requested. ?More frequent testing may be indicated based on her other medical/obstetrical conditions. The management of other or medical conditions is beyond the scope of requested consultation and will c ontinue to be followed by the primary collar setter or primary care provider. Note to patient: [...] opinion of the practitioner. documented in this encounterMiddletown Hospital10-15-2025 History of Present illness Narrative* Rody Qiu [...] hypertension, antepartum ([facility]) 04/25/2025 Vitamin D deficiency 05/23/2025 H/O pre-eclampsia in prior , currently ([facility]) 05/23/2025 Resolved Ambulatory Problems Diagnosis Date [...] nursing note reviewed. Exam conducted with a algebra teacher present. Vitals: Estimated body mass index is 42.99 kg/m as calculated from the following: Height as of 06/11/24: 5' 8 . Weight as of this encounter: 282 lb 12 oz. BP: 130/76 Patient's last menstrual period was 12/26/2024. ASSESSMENT & PLAN ICD-10-CM 1. Second trimester ([facility]) Z34.92 POCT urinalysis dipstick manually resulted 2. 23 weeks gestation of ([facility]) Z3A.23 Return OB: Patient presents today [...] 06/01/2024 WISDOM TOOTH EXTRACTION documented in this encounterWashington County Memorial HospitalYqrhjfgguy16-92-6980 History of Present illness Narrative* Rody Qiu [...] hypertension, antepartum ([facility]) 04/25/2025 Vitamin D deficiency 05/23/2025 H/O pre-eclampsia in prior , currently ([facility]) 05/23/2025 Resolved Ambulatory Problems Diagnosis Date [...] nursing note reviewed. Exam conducted with a algebra teacher present. Vitals: Estimated body mass index is 43.03 kg/m as calculated from the following: Height as of 06/11/24: 5' 8 . Weight as of 05/23/25: 283 lb. BP: Patient's last menstrual period was 12/26/2024. ASSESSMENT & PLAN ICD-10-CM 1. Second trimester ([facility]) Z34.92 2. 22 weeks gestation of ([facility]) Z3A.22 POCT urinalysis dipstick manually resulted [...] of: Rody Qiu NP documented in this encounterWashington County Memorial HospitalIblgwqfmoz25-35-3794 History of Present illness Narrative* Rody Qiu [...] hypertension, antepartum ([facility]) 04/25/2025 Vitamin D deficiency 05/23/2025 H/O pre-eclampsia in prior , currently ([facility]) 05/23/2025 Resolved Ambulatory Problems Diagnosis Date [...] nursing note reviewed. Exam conducted with a algebra teacher present. Vitals: Estimated body mass index is 43.03 kg/m as calculated from the following: Height as of 06/11/24: 5' 8 . Weight as of this encounter: 283 lb. BP: 142/82 Patient's last menstrual period was 12/26/2024. ASSESSMENT & PLAN ICD-10-CM 1. Second trimester ([facility]) Z34.92 POCT urinalysis dipstick manually resulted 2. 21 weeks gestation of ([facility]) Z3A.21 3. induced hypertension, antepartum ([facility]) O13.9 4. Vitamin D deficiency E55.9 5. H/O pre-eclampsia in prior , currently ([facility]) O09.299 Return OB: Patient presents today [...] of: Rody Qiu NP documented in this encounterWashington County Memorial HospitalQczzuorksd78-34-6452 History of Present illness Narrative* Bethany Lundy [...] No Have you been seen here at [facility] in a previous ? No Recent ER visits or hospitalizations? Yes, for slicing thumb on mandolin Bring blood sugar log or meter with you today? (Please bring them with you for every visit at [facility]) N/A Flu vaccine (Jun-October)? N/A Any [...] TESTS AND ULTRASOUND REPORTS: Referral records and [facility] chart were reviewed Pertinent Ultrasound [...] recommended threshold of 160/110. Referenc e: PMID: [id number], 2021. Blood pressures do increase as progresses [...] preeclampsia prevention as is recommended by the [place] College [employer] Gynecology Committee Opinion No. 743. [...] patient is in complete care of her collar setter. Patient does have ultrasound and office visit scheduled with us. Thank you for allowing me to participate in the care of Ellen Ramires. If there any questions please do not hesitate to contact us. Yordy Cruz MD Maternal- Medicine [address]st [place] [address] This document was created with [employer] technology. Though I make every effort to review the dictation as it is transcribed, on occasion the spoken word can be misinterpreted by the technology leading to inappropriate words, phrases, or sentences. This note is addressed to the requesting provider as a consultation for clinical guidance. Specificmedical abbreviations are occasionally used and those are generally approved by the [place]?Board of?Obstetrics and?Gynecology?as well as?Rama tapia abbreviations. The above plan of care was based solely on the diagnoses for which a consultation was requested. ?More frequent testing may be indicated based on her other medical/obstetrical conditions. The management of other or medical conditions is beyond the scope of requested consultation and will c ontinue to be followed by the primary collar setter or primary care provider. Note to patient: [...] Blood drawn for cell-free DNA testing per [facility] phlebotomy. Patient tolerated well. documented in this encounterMiddletown Hospital09-04-2025 History of Present illness Narrative* Rody Qiu [...] (polycystic ovarian syndrome) 07/30/2024 induced hypertension, antepartum ([facility]) 04/25/2025 Resolved Ambulatory Problems Diagnosis Date Noted [...] nursing note reviewed. Exam conducted with a algebra teacher present. Vitals: Estimated body mass index is 42.88 kg/m as calculated from the following: Height as of 06/11/24: 5' 8 . Weight as of this encounter: 282 lb. BP: 138/82 Patient's last menstrual period was 12/26/2024. ASSESSMENT & PLAN ICD-10-CM 1. Screening, , for anatomic survey ([facility]) Z36.89 CANCELED: US OB 14+ weeks anatomy scan 2. Second trimester ([facility]) Z34.92 POCT urinalysis dipstick manually resulted 3. 17 weeks gestation of ([facility]) Z3A.17 4. Screen for STD (sexually transmitted disease) Z11.3 SURESWAB(R) ADVANCED VAGINITIS PLUS, TMA CHLAMYDIA TRACHOMATIS (GENITO/STI) Neisseria gonorrhea DNA probe, direct 5. Need for maternal serum alpha-protein (MSAFP) screening ([facility]) Z36.1 Alpha fetoprotein, maternal Alpha fetoprotein, maternal 6. induced hypertension, antepartum ([facility]) O13.9 7. Vitamin D deficiency E55.9 [...] of: Caesar Broderick DO documented in this encounterWashington County Memorial HospitalSwmglhzwbg46-43-4726 History of Present illness Narrative* Karoline Casillas, TEST AND RESEARCH REACTOR OPERATOR - 04/11/2025 10:30 AM EDT Reason for [...] nursing note reviewed. Exam conducted with a algebra teacher present. Vitals: Estimated body mass index is 42.63 kg/m as calculated from the following: Height as of 06/11/24: 5' 8 . Weight as of this encounter: 280 lb 6.4 oz. BP: 140/86 Patient's last menstrual period was 12/26/2024. ASSESSMENT & PLAN ICD-10-CM 1. 15 weeks gestation of ([facility]) Z3A.15 POCT urinalysis dipstick manually resulted 2. Second trimester ([facility]) Z34.92 POCT urinalysis dipstick manually resulted 3. Acute nonintractable headache, unspecified headache type R51.9 4. BP check Z01.30 Patient presents today for a routine obstetrics appointment. Patient is currently 15w1d with a Estimated Date of Delivery: 10/02/25. Patient is having persistent elevated HTN. Discussed patient being referred to [facility] for management and recommendations for Gestational HTN. Patient is agreeable with referral. Patient to be started on Labetalol 200mg BID. Patient given labs and 24 hour urine to have obtained for baseline testing. Patient aware that once lab results are obtained then referral will be completed, so then all results can be sent to [facility] at onetime. Patient to return to clinic in 4 weeks for routine OB appointment. Patient to reach out to office with any concerns/questions. Documented by Karoline Casillas LPN on behalf of: Caesar Broderick DO documented in this encounterWashington County Memorial HospitalRlmgfuturb57-49-3131 History of Present illness Narrative* Karoline Casillas [...] nursing note reviewed. Exam conducted with a algebra teacher present. Vitals: Estimated body mass index is 42.29 kg/m as calculated from the following: Height as of 24: 5' 8 . Weight as of this encounter: 278 lb 1.9 oz. BP: 138/80 Patient's last menstrual period was 12/26/2024. ASSESSMENT & PLAN ICD-10-CM 1. 13 weeks gestation of ([facility]) Z3A.13 POCT urinalysis dipstick manually resulted 2. Second trimester ([facility]) Z34.92 POCT urinalysis dipstick manually resulted [...] or undercooked meat, and [facility]. Patient has been consulted regarding any further [...] of: Caesar Broderick DO documented in this encounterWashington County Memorial HospitalWzhochzrbz28-19-8364 History of Present illness Narrative* Melanie Almaraz [...] dipstick manually resulted , unspecified gestational age ([facility]) - Type and screen; Future - ABO/Rh; Future - CBC and differential - Hemoglobin A1c - RPR - Rubella antibody, IgG - Hepatitis B surface antigen - Hepatitis C antibody - HIV-1 and HIV-2 antibodies - Rapid drug screen, urine; Future Encounter for supervision of normal first in first trimester ([facility]) - Rapid drug screen, urine; Future 9 weeks gestation of ([facility]) Nurse Note: Pt uncertain of doing the [place] [employer] to one. Advised pt if she does to make sure both labs and [place] is done at the same time. PVU. Pt did state she had a Vit. D deficiency and has a h/o high blood pressure with G1. Kalani Tysdo advised patient showed in dating [place] today [...] or undercooked meat, and [facility] away [facility]. Patient has also been advised to not [...] or questions. Nurse Visit Completed by: Melanie Almraaz MA documented in this encounterWashington County Memorial HospitalAhpeweqrsb49-73-4632 History of Present illness Narrative* Robbie Lopez [...] bilateral tubal patency Saline Infused Sonography: None TUGBOAT OPERATOR Pelvic Ultrasound: 2023 FINDINGS: UTERUS: Normal [...] 10/2024 Thyroid profile includes TSH FT4 Order: [id number] Component Ref Range & Units 2 mo [...] -- -- -- 2.68 -- -labs done [id number] Relationship Status: Have you ever been ? 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 Tadalafil - 10mg as needed Injuries: No STD: No Please select all that are applicable: SA: Yes SA Results: Yes -Done at [facility] 2023- reports was told normal, [...] family history on file. documented in this encounterFisher[facility] Work Phone: 1(226) 389-438605-15-2025 Instructions* Patient Instructions* Robbie Lopez MD - [...] Lopez 01/03/2025 11:05 AM documented in this encounterFisher-Titus Medical Center Work Phone: 1(357) 382-313104-29-2025 History of Present illness Narrative* Kita Griggs [...] nursing note reviewed. Exam conducted with a algebra teacher present. Vitals: Estimated body mass index is [...] after allowing sufficient time to take affect. brass pickler and scissors used to remove affected area. Placed in formalin and sent to pathology. Post-procedure instructions given. Follow Up: as needed Documented by Kita Griggs LPN on behalf of: Caesar Broderick DO documented in this encounterWashington County Memorial [id number] History of Present illness Narrative* Melanie Almaraz [...] nursing note reviewed. Exam conducted with a algebra teacher present. Vitals: Estimated body mass index is [...] of: Caesar Broderick DO documented in this encounterWashington County Memorial [id number] History of Present illness Narrative* Karoline Casillas [...] of: Caesar Broderick DO documented in this encounterWashington County Memorial [id number] History of Present illness Narrative* iKta Griggs LPN - 07/23/2024 1:00 PM EST [...] nursing note reviewed. Exam conducted with a algebra teacher present. Vitals: Estimated body mass index is [...] of: Caesar Broderick DO documented in this encounterWashington County Memorial [id number] History of Present illness Narrative* Karoline Casillas [...] nursing note reviewed. Exam conducted with a algebra teacher present. Vitals: Estimated body mass index is [...] of: Caesar Broderick DO documented in this encounterWashington County Memorial [id number] History of Present illness Narrative* Whitney Painting - 05/03/2024 11:40 AM EDT Reason for Appointment: Patient ID: Ellen Ramires is a 34 y.o. female who presents for Pre-op Visit Patient presents today for Pre Op appointment. Patient is scheduled to undergo Diagnostic Laparoscopy, possible FLAKITO, possible FOE, possible BSO, possible Chromopertubation on 06/01/[address] Broderick at [facility]. MEDICATIONS Current Outpatient Medications Medication [...] nursing note reviewed. Exam conducted with a algebra teacher present. Vitals: There is no height or [...] reviewed, and patient is to proceed to [facility] OR. Follow Up: Patient is to follow up between 1-2 weeks post operative to assess proper healing and recovery fromprocedure. Documented by Karoline Casillas LPN on behalf of: Caesar Broderick DO documented in this encounterWashington County Memorial [id number] History of Present illness Narrative* Kita Griggs [...] nursing note reviewed. Exam conducted with a algebra teacher present. 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 PCP: [facility] Jazmín Referring Physician: Sabiha Aviles APRN-[place] [address] documented [facility] Miscellaneous Notes* Telephone Encounter - Sheyla Powell CMA - 03/12/2024 2:47 PM EDT Left message for patient to remind them to bring their most current medication list with them to their appointment. documented in this encounterM[facility] Telephone encounter Note* Telephone Encounter - Sheyla Powell CMA - 03/12/2024 2:47 PM EDT Left message for patient to remind them to bring their most current medication list with them to their appointment. [facility] Evaluation note* Encounter Date Diagnosis Assessment Notes [...] the onset of your symptoms of COVID [employer] Other Chief complaint+Reason for visit Narrative* Chief Complaint sinus pressure, coug h Reason for Visit Contact with and (matt spected) exposure to covid-19 Sore throat Sinusitis [facility] Work Phone: Evaluation note* Diagnosis Onset Date Resolution Status Contact with and (suspected) exposure to covid-19 acuteSore throatacuteSinusitisnoneactive [facility] Work Phone: Evaluation note* Diagnosis Postoperative visit S/P laparoscopic procedure Other postprocedural status documented in this encounter [facility] HealthcareEvaluation note* Diagnosis PCOS (polycystic ovarian syndrome) Polycystic ovaries Encounter for fertility planning documented in this encounter [facility] HealthcareEvaluation note* Diagnosis Pre-op examination Pelvic pain in female Unspecified symptom associated with female genital organs Fallopian tube disorder Unspecified noninflammatory disorder of ovary, fallopian tube, and broad ligament documented in this encounter [facility] HealthcareEvaluation note* Diagnosis Encounter for fertility planning PCOS (polycystic ovarian syndrome) Polycystic ovaries Pelvic pain in female Unspecified symptom associated with female genital organs Abnormal uterine bleeding (AUB) documented in this encounter [facility] HealthcareEvaluation note* Diagnosis Heart palpitations- Primary Palpitations documented [facility]* Diagnosis Encounter for fertility planning Acute cystitis without hematuria PCOS (polycystic ovarian syndrome) Polycystic ovaries Fallopian tube disorder Unspecified noninflammatory disorder of ovary, fallopian tube, and broad ligament documented in this encounter [facility] HealthcareEvaluation note* Diagnosis Well woman exam with routine gynecological exam Routine gynecological examination documented in this encounter [facility] HealthcareEvaluation note* Diagnosis Skin mole documented in this encounter [facility] HealthcareEvaluation noteNo assessment information availableDelaware County Hospital Work Phone: Evaluation note* Diagnosis Encounter for preprocedural laboratory examination- Primary Abnormal uterine bleeding Unspecified disorder of menstruation and other abnormal bleeding from female genital tract documented in this encounter [facility] Work Phone: Evaluation note* Diagnosis Amenorrhea Absence of menstruation Missed menses , unspecified gestational age ([facility]) Encounter for supervision of normal first in first trimester ([facility]) 9 weeks gestation of ([facility]) Vitamin D deficiency History of hypertension Personal history of other diseases of circulatory system documented in this encounter [facility] HealthcareEvaluation note* Diagnosis 13 weeks gestation of ([facility]) Second trimester ([facility]) state, incidental Acute nonintractable headache, unspecified headache type documented in this encounter [facility] HealthcareEvaluation note* Diagnosis 15 weeks gestation of ([facility]) Second trimester ([facility]) state, incidental Acute nonintractable headache, unspecified headache type BP check Screening for hypertension Gestational hypertension, antepartum ([facility]) induced hypertension, antepartum ([facility]) Transient hypertension of , antepartum documented [facility]* Diagnosis Hypertension affecting in second trimester- Primary [facility] Diagnosis Screening, , for anatomic survey ([facility]) Encounter for anatomic survey Second trimester ([facility]) state, incidental 17 weeks gestation of ([facility]) Screen for STD (sexually transmitted disease) Screening examination for venereal disease Need for maternal serum alpha-protein (MSAFP) screening ([facility]) induced hypertension, antepartum ([facility]) Transient hypertension of , antepartum Vitamin D deficiency documented [facility]* Diagnosis Chronic 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 Severe obesity due to excess calories affecting , antepartum ([facility]) 20 weeks gestation of documented [facility]* 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 Chronic hypertension affecting Severe obesity due to excess calories affecting , antepartum ([facility]) Hypertension affecting in second trimester documented in [facility] encounter [facility]* 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 Chronic hypertension affecting Severe obesity due to excess calories affecting , antepartum ([facility]) Hypertension affecting in second trimester documented [facility] encounter [facility]* Diagnosis Chronic hypertension affecting ([facility])- Primary Second trimester ([facility]) state, incidental 22 weeks gestation of ([facility]) documented in this encounter [facility]* Diagnosis Second trimester ([facility]) state, incidental 21 weeks gestation of ([facility]) induced hypertension, antepartum ([facility]) Transient hypertension of , antepartum Vitamin D deficiency H/O pre-eclampsia in prior , currently ([facility]) documented in this encounter [facility]* Diagnosis Second trimester ([facility]) state, incidental 23 weeks gestation of ([facility]) documented in this encounter [facility]* Diagnosis Chronic hypertension affecting - Primary 20 weeks gestation of Anxiety disorder affecting , 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 Severe obesity due to excess calories affecting , antepartum ([facility]) [facility] Diagnosis Second trimester ([facility]) state, incidental 25 weeks gestation of ([facility]) H/O pre-eclampsia in prior , currently ([facility]) Vitamin D deficiency Chronic hypertension affecting ([facility]) Diabetes mellitus screening Screening for diabetes mellitus documented in this encounter [facility] HealthcareInstructionsNot on filedocumented in this encounterHolzer [facility] System SystemInstructionsNot on filedocumented in this encounterHolzer Health System SystemInstructionsNot on filedocumented in this encounterHolzer Health System SystemInstructionsNot on filedocumented in this encounterHolzer [facility] System InstructionsNot on filedocumented in this [facility] InstructionsNot on filedocumented in this [facility] InstructionsNot on filedocumented in this encounterHol[facility] System InstructionsNot on filedocumented in this encounterHol[facility] System InstructionsNot on filedocumented in this [facility] Family History No Family History [...] PALPITATIONS SCHED W/ PT LABS [facility] LABS AT PCPSpecialtyDiagnoses / ProceduresReferred By Contact Referred To ContactCardiology Diagnoses Heart palpitations Sabiha Aviles, KRISTINE-ELECTRO MECHANICAL ENGINEER [address] [place] [id number] [facility] [address] [place] [address] Referral IDStatusReasonStart DateExpiration DateVisits RequestedVisits [id number] Review Specialty Services Required /[id number] ExamReason CommentsMole removalReasonCommentsInfertilityReasonCommentsAmenorrheaReason CommentsRoutine VisitReasonCommentsgHTNPCOS Care Teams [...] DateEnd Date Kromer, Judy PCP - [facility]7/09/14Team MemberRelationshipSpecialtyStart DateEnd Date Kromer, Judy PCP - [facility]7/09/14Team MemberRelationshipSpecialtyStart DateEnd Date Kromer, Judy PCP - [facility]7/09/14Team MemberRelationshipSpecialtyStart DateEnd Date Kromer, Judy PCP - [facility]7/09/14Team MemberRelationshipSpecialtyStart DateEnd Date Kromer, Judy PCP - [facility]7/09/14Team MemberRelationshipSpecialtyStart DateEnd Date Kromer, Judy PCP - [facility]7/09/14Team MemberRelationshipSpecialtyStart DateEnd Date Kromer, Judy PCP - [facility]7/09/14Team MemberRelationshipSpecialtyStart DateEnd Date [address] [place] PCP - GeneralFamily Medicine11/12/22Team MemberRelationshipSpecialtyStart DateEnd Date [facility] [address] [place] PCP - GeneralFamily Medicine11/12/22Team MemberRelationshipSpecialtyStart DateEnd Date [facility] [address] [place] PCP - GeneralFamily Medicine11/12/22Team MemberRelationshipSpecialtyStart DateEnd Date Kromer, Judy PCP - [facility]02/20/24Team MemberRelationshipSpecialtyStart DateEnd Date Kromer, Judy PCP - [facility]02/20/24Team MemberRelationshipSpecialtyStart DateEnd Date Kromer, Judy PCP - [facility]02/20/24Team MemberRelationshipSpecialtyStart DateEnd Date Kromer, Judy PCP - [facility]02/20/24 Team Status: Inactive Member Role Status Dates Caesar Broderick DO Attending Provider Active Start : December 18, 2024 End: December 18, 2024Team MemberRelationshipSpecialtyStart DateEnd Date June Trinidad LPN Licensed Practical NurseReproductive Endocrinology and Infertility01/01/25Team MemberRelationshipSpecialtyStart DateEnd Date Kromer, Judy PCP - [facility]02/20/24Team MemberRelationshipSpecialtyStart DateEnd Date Kromer, Judy PCP - [facility]02/20/24Team MemberRelationshipSpecialtyStart DateEnd Date Kromer, Judy PCP - [facility]02/20/24Team MemberRelationshipSpecialtyStart DateEnd Date Judy Caal PCP - [facility]02/20/24am MemberRelationshipSpecialtyStart DateEnd Date Services, [facility] [address] [place], [place] PCP - GeneralFamily Medicine11/03/24Team MemberRelationshipSpecialtyStart DateEnd Date Services, [facility] [address] [place], [place] PCP - GeneralFamily Medicine11/03/24Team MemberRelationshipSpecialtyStart DateEnd Date Lima Caalsa PCP - [facility]02/20/24Team MemberRelationshipSpecialtyStart DateEnd Date [facility], [facility] [address] [place], [place] PCP - GeneralFamily Medicine11/03/24Team MemberRelationshipSpecialtyStart DateEnd Date Services, [facility] [address] [place], [place] PCP - GeneralFamily Medicine11/03/24Team MemberRelationshipSpecialtyStart DateEnd Date [facility] [address] [place], [place] PCP - GeneralFamily Medicine11/03/24Team MemberRelationshipSpecialtyStart DateEnd Date Andres Caalyssa PCP - [facility]02/20/24Team MemberRelationshipSpecialtyStart DateEnd Date Afua Judy PCP - [facility]02/20/24Team MemberRelationshipSpecialtyStart DateEnd Date Services, [facility] [address] [place], [place] PCP - GeneralFamily Medicine11/03/24Team MemberRelationshipSpecialtyStart DateEnd Date Judy Caal PCP - [facility]02/20/24 Goals (unrecognized section and content) Goals may be documented in a n alternate section INFORMATION SOURCE (unrecogn ized section and content) DATE CREATED AUTHOR 12/29/2024 [facility] DATE CREATED AUTHOR AUTHOR'S ORGANIZ ATION 01/07/2025 [facility] DATE CREATED AUTHOR AUTHOR'S ORGANIZ ATION 06/19/2025 [facility] DATE CREATED AUTHOR AUTHOR'S ORGANIZ ATION 06/20/2025 [facility] DATE CREATED AUTHOR AUTHOR'S ORGANIZ ATION 06/25/2025 [facility] EPIC FOR RECORDS [...] BE BASED ON THE PRIMARY CLINICAL RECORDS. [employer] provides no warranty or guarantee of the accuracy or completeness of information in this document.
[2025-07-12 10:18] VITALS: BP 116/75; PULSE 88
== END 2025-07-12 11:20 | disposition home or self-care (01) ==
LOC: US 09:51 → FBC 09:55
PROVIDERS: Visit Provider Obstetrics & Gynecology
DX: O10.913 Unspecified pre-existing hypertension complicating pregnancy, third trimester (principal); Z3A.29 29 weeks gestation of pregnancy
CPT/HCPCS: 76816; 76818

== ENCOUNTER 2025-07-16 10:08 | Outpatient (OUT) | payer MEDICAID, SELFPAY ==
--- OUTSIDE RECORDS SUMMARY | 2025-07-16 10:15 | XMS_ITS | CCD ---
Author Organization [facility] Care Team Providers Care Topographic Computator Name Role Phone Pinky Singh Unavailable Judy Caal Unavailable Unavailable Unavailable Primary Care Provider Unavailabl e Services, [facility] Primary Care Provider Caesar Broderick DO Attending Provider Caesar Broderick Attending Unavailable Davie, Caesar Admitting Unavailable White GUEST SERVICES REPRESENTATIVE, June A Unavailable Unavailable ROBBIE LOPEZ Attending Unavailable Services, [facility] Primary Care Provider SERVICES, [facility] Care Unava ilable MILLIE VILLAGRAN Attending Unavailable SERVICES, [facility] Care Unava ilable FRANCIE ABRAMS Attending Unavailable DAVIE, CAESAR R Referring Unavailable SERVICES, [facility] Care Unava ilable DAVIE, CAESAR R Referring Unavailable SERVICES, [facility] Care Unava ilable YORDY CRUZ Attending Unavailable DAVIE, CAESAR R Referring Unavailable SERVICES, [facility] Care Unava ilable DAVIE, CAESAR R Referring Unavailable SERVICES, [facility] Care Unava ilable YORDY CRUZ Attending Unavailable DAVIE, CAESAR R Referring Unavailable SERVICES, [facility] Care Unava ilable Services, [facility] Primary Care Provider DEWEY BRODERICKY Attending Unavailable [...] 125 mg oral tablet (2 sources)Penicillin-class AntibacterialStart: 17-51-5780sumv 1 tablet by mouth twice dailyAmoxicillin-Pot Clavulanate 875-125 mg tablet Active 1 TAB PO Twice daily November 24, 2023 12:00amaspirin 81 mg delayed release oral tablet (4 sources)Platelet Aggregation Inhibitor, Nonsteroidal Anti-inflammatory Drug take 1 tablet by mouth in the morningaspirin 81 mg Take 1 tablet (81 mg total) by mouth in the morning. Activecholecalciferol 0.01 mg oral tablet (20 sources)Vitamin DStart: 08-96-9708bqqeubcxbovjdaz 10 mcg (400 unit) tablet 2 tablets (800 Units total) in the morning. 01/26/2024 ActiveStart: 01-26-2024 End: 55-23-2521Ldlwocrtmbddcqi 10 MCG (400 UNIT) chewable tablet 1 (one) time each day at the same time Discontinued (Therapy completed) End: 48-69-9951rvgb 2 tablets by mouth once dailyD-400 10 MCG (400 UNIT) tablet TAKE 2 TABLETS BY MOUTH ONCE DAILY FOR 30 DAYS 03/28/2025 Discontinuedclobetasol propionate 0.0005 mg/mg topical ointment (3 sources)CorticosteroidStart: 05-17-2025 End: 51-79-9563ykuemhzvcM (TEMOVATE) 0.05 % ointment Indications: Acute palmoplantar pustular psoriasis , Chronic hypertension affecting , 20 weeks gestation of Apply a thin layer to the affected areas twice daily. 30 g 05/17/2025 05/31/2025 ActiveclomiPHENE citrate 50 mg oral tablet (3 sources)Estrogen Agonist/AntagonistStart: 11-12-2024 End: 98-33-7538tsxo 2 tablets by mouth once dailyclomiPHENE (Clomid) 50 MG tablet Indications: Encounter for fertility planning , PCOS (polycystic ovarian syndrome) , Fallopian tube disorder Take 2 tablets (100 mg) by mouth Daily for 5 days 10 tablet 11/12/2024 11/17/2024 Activefluticasone propionate 0.05 mg/actuat metered dose nasal spray (4 sources)CorticosteroidStart: 11-24-2023 End: 05-03-7344yfftjvydjtl (Flonase) 50 MCG/ACT nasal spray Daily 11/24/2023 04/10/2024 Discontinued (Other)Start: 14-24-4889pqwp 1 spray(s) nasal route once dailyFluticasone Propionate 50 mcg/actuation spray,suspension Active 2 SPRAY INTRANASAL Daily November 24, 2023 12:00am administer into each nostril labetalol hydrochloride 100 mg oral tablet (14 sources)beta-Adrenergic BlockerStart: 06-24-2025 End: 81-63-8940fjrk 1 tablet by mouth once dailylabetalol (Normodyne) 100 MG tablet Indications: Hypertension Take 1 tablet (100 mg) by mouth Daily30 tablet 3 06/24/2025 07/24/2025 ActiveStart: 05-16-2025 End: 94-60-2600psjh 1 tablet by mouth once at bedtimelabetalol (Normodyne) 200 MG tablet Indications: Second trimester (HHS-HCC) , Gestational hypertension, antepartum (HHS-HCC) TAKE 1 TABLET (200 MG) BY MOUTH IN THE MORNING AND AT BEDTIME 60tablet 2 05/16/2025 05/23/2025 Discontinued (Ineffective)Start: 04-11-2025 End: 46-71-3585umcf 1 tablet by mouth once in the morninglabetalol (Normodyne) 200 MG tablet Indications: Second trimester (HHS-HCC) , Gestational hypertension, antepartum (HHS-HCC) Take 1 tablet (200 mg) by mouth in the morning and 1 tablet (200mg) before bedtime. 60 tablet 04/11/2025 05/11/2025 Active End: 05-98-8164rioi 1 tablet by mouth in the morning, then take 1 tablet by mouth at bedtimelabetaloL (NORMODYNE) 200 mg tablet Take 1 tablet (200 mg total) by mouth in the morning and 1 tablet (200 mg total) before bedtime. 05/17/2025 Discontinuedmagnesium oxide 400 mg oral tablet (15 sources)Start: 03-28-2025 End: 59-60-9976rgel 1 tablet by mouth once dailymagnesium oxide (Mag-Ox) 400 MG tablet Indications: Second trimester (HHS-HCC) , Acute nonintractable headache, unspecified headache type Take 1 tablet (400 mg) by mouth Daily 30 tablet 6 03/28/2025 04/27/2025 ActivemetFORMIN hydrochloride 500 mg oral tablet (20 sources)BiguanideStart: 22-54-0592hqpHNLCXD (Glucophage) 500 mg tablet 1 tablet (500 mg). 05/22/2024 ActiveStart: 04-10-2024 End: 84-07-6372egyr 1 tablet by mouth every twenty-four hours at mealtime metFORMIN XR (Glucophage-XR) 500 MG 24 hr tablet Indications: PCOS (polycystic ovarian syndrome) , Abnormal uterine bleeding (AUB) Take 1 tablet (500 mg) by mouth in the evening. Take with meals Do not crush, chew, or split. 30 tablet 11 04/10/2024 03/01/2025 Discontinued (Therapy completed) End: 81-60-4899ywnv 1 tablet by mouth once daily at breakfastmetFORMIN XR (GLUCOPHAGE XR) 500 mg 24 hr tablet Take 1 tablet (500 mg total) by mouth daily with breakfast. 05/17/2025 DiscontinuedNIFEdipine 30 mg osmotic 24 hr extended release oral tablet (20 sources)Dihydropyridine Calcium Channel BlockerStart: 26-39-2097vvqe 2 tablets by mouth every twenty-four hours at bedtimeNIFEdipine XL (PROCARDIA XL) 30 mg 24 hr tablet Indications: Chronic hypertension affecting , 20 weeks gestation of Take 2 tablets (60 mg total) by mouth in the morning and at bedtime. 60 tablet 2 06/18/2025 ActiveStart: 05-30-2025 End: 92-96-1373zspd 1 tablet by mouth once daily in the morningNIFEdipine XL (Procardia XL) 60 MG 24 hr tablet Indications: Chronic hypertension affecting ([facility]) Take 1 tablet (60 mg) by mouth Daily Take 1 tablet in the am. Do not crush, chew, or split. 30 tablet 3 05/30/2025 05/30/2026 ActiveStart: 77-95-4518wdcp 1 tablet by mouth once dailyProcardia XL 30 MG 24 hr tablet Take 30 mg by mouth Daily 05/17/2025 ActiveStart: 05-17-2025 End: 06-72-2386pryl 1 tablet by mouth every twenty-four hours at bedtime NIFEdipine XL (PROCARDIA XL) 30 mg 24 hr tablet Indications: Chronic hypertension affecting , 20 weeks gestation of Take 1 tablet (30 mg total) by mouth in the morning and at bedtime. 60 tablet 2 05/17/2025 06/18/2025 DiscontinuedpredniSONE 20 mg oral tablet (2 sources)Start: 22-67-1062jzak 1 tablet by mouth twice dailyPrednisone 20 mg tablet Active 20 MG PO Twice daily 10 November 24, 2023 12:00amprenatal 115/iron/folic acid ( 19 ORAL) (4 sources)take 1 tablet by mouth in the morningprenatal 115/iron/folic acid ( 19 ORAL) Take 1 tablet by mouth in the morning. Activesertraline 25 mg oral tablet (20 sources)Serotonin Reuptake InhibitorStart: 66-94-8107injw 1 tablet by mouth in the morningsertraline (ZOLOFT) 25 mg tablet Indications: Anxiety disorder affecting , antepartum Take1 tablet (25 mg total) by mouth in the morning. 30 tablet 1 06/18/2025 ActiveStart: 14-41-4722zksg 1 tablet by mouth in the morningsertraline (ZOLOFT) 50 mg tablet Indications: Anxiety disorder affecting , antepartum Take1 tablet (50 mg total) by mouth in the morning. 30 tablet 1 06/18/2025 ActiveStart: 11-06-2024 End: 84-58-8010ihzl 2 tablets by mouth once dailysertraline (Zoloft) 25 MG tablet Take 50 mg by mouth 1 (one) time each day at the same time 11/06/2024 ActiveStart: 11-06-2024 End: 98-15-8622hxey 3 tablets by mouth at bedtimesertraline (ZOLOFT) 25 mg tablet Take 3 tablets (75 mg total) by mouth before bedtime. 11/06/2024 DiscontinuedStart: 11-06-2024 End: 68-15-1440bfchjukxlf (Zoloft) 25 MG tablet 1 (one) time each day at the same time 11/06/2024 ActiveStart: 08-04-2023 End: 76-77-3988cwxy 1 tablet by mouth once dailysertraline (Zoloft) 50 MG tablet Take 50 mg by mouth Daily 08/04/2023 04/10/2024 Discontinued (Other)sertraline (ZOLOFT) 25 mg tablet Take by mouth daily. Active Completed/Discontinued Medications MedicationDrug Class(es)DatesSig (Normalized)Sig (Original)omeprazole 20 mg delayed release oral capsule (20 sources)Proton Pump InhibitorStart: 01-24-2024 End: 86-36-7791wksb 1 capsule by mouth in the morningomeprazole (PriLOSEC) [address] capsule Take 20 mg by mouth in the morning. 01/24/2024 03/28/2025 Dis continued Problems Active Problems Problem ClassificationProblemDateDocumented DateEpisodic/ChronicAbdominal pain (3 sources)Pain in female pelvis; Translations: [Pelvic and perineal pain] 92-82-8344RjzlxkasEqykqks disorders (1 source)Anxiety disorder, unspecified; Translations: [Anxiety disorder, unspecified]Onset: 04-95-0202VgeeevfJgoliirqfwang and procreative management (10 sources)Patient encounter status; Translations: [Encounter for other procreative management]57-84-2923XtyafmseCcdejezg; including migraine (4 sources)Acute headache; Translations: [Acute nonintractable headache, unspecified headache type]80-66-8618NixqseceSjxrrumnsxxj complicating ; childbirth and the puerperium (18 sources)Hypertension complicating ; Translations: [Unspecified maternal hypertension, second trimester]Onset: hronic Hypertension complicating ; childbirth and the puerperium (20 sources)Hypertension AND/OR vomiting complicating childbirth AND/OR puerperium; Translations: [Gestational [-induced] hypertension without significant proteinuria, unspecified trimester]Onset: 04-25-2025 40-31-7378FtuudxakJysbbxlmxulye and screening for infectious disease (6 sources)Contact with and (suspected) exposure to other viral communicable diseases; Translations: [Contact with or exposure to other viral diseases] EpisodicMenstrual disorders (2 sources)Amenorrhea; Translations: [Amenorrhea, unspecified]72-20-5035Eveonjb Nutritional deficiencies (20 sources)Vitamin D deficiency; Translations: [Vitamin D deficiency, unspecified]Onset: 650423-64-3107OyexqjbPpvl wounds of extremities (2 sources)Laceration without foreign body of right thumb without damage to nail, initial encounter; Translations: [Laceration of finger]Onset: 04-29-2025 EpisodicOther aftercare (2 sources)Postoperative visit; Translations: [Encounter for other specified surgical aftercare]19-36-3869UslmgjbiFypuy and unspecified benign neoplasm (1 source)Pigmented skin lesion ; Translations: [Melanocytic nevi, unspecified] 21-43-3678ZwkvlajwQjtpn circulatory disease (1 source)H/O: hypertension; Translations: [Personal history of other diseases of the circulatory system]49-35-3162PkuqobjwCinpy complications of (5 sources)Maternal obesity complicating , childbirth and the puerperium, antepartum; Translations: [Obesity complicating , unspecified trimester]35-69-9601UsnymraMpqto complications of (2 sources)Obesity complicating , unspecified trimester; Translations: [Obesity complicating , unspecified trimester]Onset: 07-24-6399Axbyxyf Other complications of (17 sources)History of pre-eclampsia; Translations: [Supervision of with other poor reproductive or obstetric history, unspecified trimester]Onset: 946177-73-3050AsgwnacdUfswp complications of (2 sources)Other mental disorders complicating , unspecified trimester; Translations: [Mental disorders of mother, antepartum condition or complication] Onset: 848972-23-2757JebudxpiZilgo endocrine disorders (20 sources)Polycystic ovary syndrome; Translations: [Polycystic ovarian syndrome]Onset: 657804-47-2068SjrsoelHocxe female genital disorders (4 sources)Abnormal uterine bleeding; Translations: [Abnormal uterine and vaginal bleeding, unspecified]88-82-9880BowabhfNsigg female genital disorders (2 sources)Abnormal uterine and vaginal bleeding, unspecified; Translations: [Abnormal uterine and vaginal bleeding, unspecified]Onset: 66-06-6440Oklamwl Other inflammatory condition of skin (5 sources)Pustular psoriasis of palms and soles; 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]11-33-7790OgsayfyTmcon inflammatory condition of skin (2 sources)Pustulosis palmaris et plantaris; 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]Onset: 22-78-4233HrhvhgrQzaij nutritional; endocrine; and metabolic disorders (2 sources)Morbid (severe) obesity due to excess calories; Translations: [Morbid (severe) obesity due to excess calories]Onset: 54-97-3703AhkrsjrKxrhe and delivery including normal (16 sources); Translations: [Encounter for supervision of normal , unspecified, unspecified trimester]23-44-8047BoofjifcWuhfi screening for suspected conditions (not mental disorders or infectious disease) (2 sources)Alpha-fetoprotein blood test status; Translations: [Encounter for screening for raised alphafetoprotein level]74-14-2914DoaoygsvTjtvc upper respiratory infections (1 source)Chronic sinusitis, unspecified; Translations: [Unspecified sinusitis (chronic)]33-17-8306ThvbtfrGqypq upper respiratory infections (3 sources)Sore throat symptom; Translations: [Acute pharyngitis, unspecified] 61-38-3837KznpmcbsJuhbynsn codes; unclassified (2 sources)History of laparoscopy; Translations: [Other specified postprocedural states]52-98-7719ErjjznvjYcyrkinh codes; unclassified (1 source)Gestation period, 9 weeks; Translations: [9 weeks gestation of ]48-06-1095RzeccxlnTudhumjo codes; unclassified (2 sources)Gestation period, 13 weeks; Translations: [13 weeks gestation of ]91-21-8020LqufiytqRjixwhzs codes; unclassified (2 sources)Gestation period, 15 weeks; Translations: [15 weeks gestation of ]26-32-2722NuoeowigYsrykcfh codes; unclassified (2 sources)Gestation period, 17 weeks; Translations: [17 weeks gestation of ]12-96-4703WrifyzmqDqjbwxaj codes; unclassified (2 sources)Gestation period, 20 weeks; Translations: [20 weeks gestation of ]20-80-3314ZsyjplirFhzlrzat codes; unclassified (2 sources)Gestation period, 22 weeks; Translations: [22 weeks gestation of ]23-43-1997YcbgonegLojbbsat codes; unclassified (2 sources)Gestation period, 21 weeks; Translations: [21 weeks gestation of ]22-89-9552XbcroxybZoigonqs codes; unclassified (2 sources)Gestation period, 23 weeks; Translations: [23 weeks gestation of ]81-71-9222AzbxhlmkSvallgko codes; unclassified (1 source)20 weeks gestation of ; Translations: [20 weeks gestation of ]Onset: 05-81-5325XddvanmcPqxhwjsl codes; unclassified (2 sources)Gestation period, 25 weeks; Translations: [25 weeks gestation of ]40-13-4269EbvdyntiCkrznxhyxzps (1 source)gHTNOnset: 05-17-2025 Past or Other Problems Problem ClassificationProblemDateDocumented DateEpisodic/ChronicCardiac dysrhythmias (8 sources)Palpitations; Translations: [Palpitations]Onset: 144660-82-5903 EpisodicNonspecific chest pain (3 sources)Chest pain, unspecified; Translations: [Chest pain]Onset: 11-03-2024 EpisodicOther female genital disorders (20 sources)Fallopian tube disorder; Translations: [Noninflammatory disorder of ovary, fallopian tube and broadligament, unspecified]Onset: 734879-30-4300 EpisodicUnclassified (2 sources)Patient encounter dortjl49-90-6648Efjlctbmakpg (1 source)Onset: 625358-84-7223Ddojmnjhkjch (1 source)Anxiety disorder affecting , llsvvprnce79-69-0436Ukgcnha tract infections (3 sources)Acute cystitis; Translations: [Acute cystitis without hematuria] Onset: 709255-13-7376YlmmsppxRkakd infection (1 source)COVID-19 Results Test NameValueInterpretationReference RangeFacilityUrinalysis macro (dipstick) panel (U)on 51-93-6397Shnnfaqry, UANegativeNegative - 4(70) +++ mg/dLNOMS HealthcareBlood, UANegativeNegative [...] mg/dLNOMS HealthcareNOMS HealthcareUrinalysis macro (dipstick) panel (U)on 33-75-5316Mwspqorny, UA NegativeNegative - 4(70) +++ mg/dLNOMS HealthcareBlood, [...] mg/dLNOMS HealthcareNOMS HealthcareUrinalysis macro (dipstick) panel (U)on 33-83-1989Vwvkztmsh, UANegativeNegative - 4(70) +++ mg/dL NOMS HealthcareBlood, UANegativeNegative - 50 Surjit/mcLNOMS HealthcareClarity, UA ClearNOMS HealthcareColor, UAYellowNOMS HealthcareGlucose, UANegativeNegative - 1999(110) ++++ mg/dLNOMS HealthcareInterpretation and review of laboratory resultsNormalNOMS HealthcareKetones, UANegativeNegative - 160(16) ++++ mg/dLNOMN HealthcareLeukocytes, UANegativeNegative - 500+++ [place]aleigh/mcLNOMS HealthcareNitrite, UANegativeNegative - PositiveNOMS HealthcarepH, UA65 - 9NOMS HealthcareProtein, UANegativeNegative - 2000(20) ++++ mg/dLNOMS HealthcareSpec Grav, UA1.0251 - 1.03NOMS HealthcareUrobilinogen, UA0.20.2 - 12 mg/dLNOMS HealthcareNOMS HealthcareAFP, SERUM, OPEN SPINA BIFIDAon 23-21-4966SDY MOM0.85.[facility] AFP VALUE38.2 ng/mL.[facility] CenterCOMMENT:Comment.[facility] CenterComment on above:Gema Ortez, Ph.D., [facility] Director References: Available Upon Request. Multiples Of Median Cutoffs For AFP Elevations Kumar 2.5 Black 2.8 IDD 2.0 Twins 4.5 Abbreviation Definitions IDD - Insulin Dep Diabetes OSBR - Open Spina Bifida Risk For further inquiries contact [employer] [facility] [facility] at [phone]. This test was developed and its performance characteristics determined by [employer]. It has not been cleared or approved by the Food and Drug Administration. Performed at: [facility] [address] [place], [place] [id number] Air Tank Assembler: Jesus Saleh [facility], Phone: [phone] GEST. AGE ON COLLECTION DATE21.1. weeksNOMN HealthcareGESTAT. AGE BASED ONLMP. [facility] CenterComment on above:Recalculations are not recommended when gestational dating by LMP and ultrasound are within 10 days. INSULIN DEP DIABETESNo.[facility] HealthcareINTERPRETATIONComment.[facility] Comment on above:Interpretation: Screen Negative This result [...] Customer Services to discuss available options. The [employer] recommends amniocentesis be offered to women age 35 and older. MATERNAL AGE AT EDD33.5. yrNOMN HealthcareMULTIPLE GESTATIONNo.[facility] Healthcare OSBR RISK 1 [id number].NOMS HealthcareRACECaucasian.[facility] HealthcareRESULTSReport. [facility] HealthcareTEST RESULTS:Negative.[facility] LmfahtjnfuZTEFYR502. lbsNOMS HealthcareN N LMP [id number] 2 9 N 1 282 N N N N N White/ CLINISYNCNOMN HealthcareUnlisted Lab Teston 28-74-2177Hxjgw Free Cell Dnalow riskProGalion Hospital SystemProMagruder Memorial HospitalB-TYPE NATRIURETIC PEPTIDEon 56-91-1565Xfbvfoheqii peptide B (Bld) [Mass/Vol]46 pg/mLNormal<=100ProSumma Health Wadsworth - Rittman Medical CenterComment on above:Performed By: #### BNP #### [facility] (TT) [address] [place] [address] VIRUrinalysis macro (dipstick) panel (U)on 73-00-6867Nszwjtuep, UANegativeNegative - 4(70) +++ mg/dLNOMN HealthcareBlood, UANegativeNegative - 50 Surjit/mcLNOMN HealthcareClarity, UAClearNOMN HealthcareColor, UAYellowNOMN HealthcareGlucose, UANegativeNegative - 2000(110) ++++ mg/dLCrossroads Regional Medical Center Interpretation and review of laboratory resultsNormalNOMN HealthcareKetones, UA NegativeNegative - 160(16) ++++ mg/dLENCOMPASS HEALTH HealthcareLeukocytes, UANegative Negative - 500+++ [place]aleigh/mcLNOMN HealthcareNitrite, UANegativeNegative - Positive [facility] HealthcarepH, UA65 - 9NOMN HealthcareProtein, UANegativeNegative - 2000(20) ++++ mg/dLNOMN HealthcareSpec Grav, UA1.0151 - 1.03NOMN HealthcareUrobilinogen, UA1.00.2 - 12 mg/dLNOProgress [facility] Hospital HealthcareTBH TOTAL PROTEIN 24 HOUR URINEon 47-31-1769SVVWN PROTEIN URINE RANDOM<6.0NINF - 11.9 mg/dLCrossroads Regional Medical Center TOTAL VOLUME 24 HOUR TKBKQ8229dR/24hrNOMN HealthcareCLINISYNCNOMS HealthcareALL CBC WITH AUTO DIFFon 92-95-9144VYWXPPFRW ABSOLUTE XQLL0WQMX Healthcare Basophils/100 WBC (Bld)0.2 %0.2 - 2.0 %NOMWashington University Medical CenterEosinophils/100 WBC (Bld) 2.9 %0.9 - 7.0 %[facility] CenterErythrocyte distribution width (RBC) [Ratio]12.3 %11.0 - 15.0 %[facility] CenterIMMATURE GRANULOCYTES ABS AUTO0.09HighNOSaint Mary's Health CenterImmature granulocytes/100 WBC (Bld)0.7 %High0.0 - 0.5 %[facility] Interpretation and review of laboratory resultsAbnormalCrossroads Regional Medical Center LYMPHOCYTES ABSOLUTE YCTX7QFNPSaint Mary's Health CenterLymphocytes/100 WBC (Bld)15.4 %Low20.5 - 60.0 %[facility] HospitalH (RBC) [Entitic mass]31.3 pg26.7 - 34.0 pgRay County Memorial HospitalHC (RBC) [Mass/Vol]33.6 g/dL29.9 - 35.2 g/dLRay County Memorial HospitalV (RBC) [Entitic vol]93.2 fL81.0 - 99.0 fLCrossroads Regional Medical CenterMONOCYTES ABSOLUTE AUTO0.5NOSaint Mary's Health CenterMonocytes/100 WBC (Bld)4.1 %1.7 - 12.0 %[facility] CenterNEUTROPHILS ABSOLUTE AUTO9.9HighNOSaint Mary's Health CenterNeutrophils/100 WBC (Bld)76.7 %High43.0 - 75.0 %[facility] CenterPlatelet mean volume (Bld) [Entitic vol]10.2 fL9.5 - 13.5 fLCrossroads Regional Medical CenterTBH EO #0.4NOSaint Mary's Health CenterTBH AJD422OCIVCass Medical Center RBC3.8 LowNOSaint Mary's Health CenterTB FQD49XwhxQLCNCrossroads Regional Medical CenterCLINISYNCAPTTon 16-51-3865nJKG Coag (Bld) [Time]26.5 [facility] without diffon 04-17-2025 Platelets (Bld) [#/Vol]251 10*3/uLUniversity Hospitals Parma Medical Center Mcv (Fl) By Automated Count93.2ProMedica Health SystemLaboratory - Hematology and Cell countson 55-34-6231Vsqcfpgodr (Bld) [Volume fraction]35.4 %[facility] Hemoglobin (Bld) [Mass/Vol]11.9 g/dLNOMN HealthcareNo Panel Informationon 31-91-0273PSIE HealthcareUrinalysis macro (dipstick) panel (U)on 04-11-2025 Bilirubin, UANegativeNegative - 4(70) +++ mg/dLNOMS HealthcareBlood, UANegative Negative - 50 Surjit/mcLNOMS HealthcareClarity, UAClearNOMS HealthcareColor, UA YellowNOMS HealthcareGlucose, UANegativeNegative - 2000(110) ++++ mg/dLNOMN HealthcareInterpretation and review of laboratory resultsNormalENCOMPASS HEALTH Healthcare Ketones, UANegativeNegative - 160(16) ++++ mg/dLNOMS HealthcareLeukocytes, UA NegativeNegative - 500+++ [place]/mcLNOMN HealthcareNitrite, UANegativeNegative - PositiveNOMS HealthcarepH, UA65 - 9NOMS HealthcareProtein, UANegativeNegative - 2000(20) ++++ mg/dLNOMN HealthcareSpec Grav, UA1.0151 - 1.03N[facility] Healthcare Urobilinogen, UA1.00.2 - 12 mg/dLNOMN HealthcareNOMN HealthcareUrinalysis macro (dipstick) panel (U)on 94-68-5299Xhlgdknkg, UANegativeNegative - 4(70) +++ mg/dL NOMS HealthcareBlood, UANegativeNegative - 50 Surjit/mcLNOMS HealthcareClarity, UA ClearNOMS HealthcareColor, UAYellowNOMS HealthcareGlucose, UANegativeNegative - 2000(110) ++++ mg/dLNOMN HealthcareInterpretation and review of laboratory resultsAbnormalNOMS HealthcareKetones, UANegativeNegative - 160(16) ++++ mg/dL NOMS HealthcareLeukocytes, UAPositiveNegative - 500+++ [place]/mcLNOMS Healthcare Comment on above:2+Nitrite, UANegativeNegative - PositiveNOMS HealthcarepH, UA65 - 9NOMS HealthcareProtein, UANegativeNegative - 2000(20) ++++ mg/dLNOMS HealthcareSpec Grav, UA1.021 - 1.03NOMN HealthcareUrobilinogen, UA1.00.2 - 12 mg/dLSouthPointe Hospital HealthcareALL CBC WITH AUTO DIFFon 78-03-0680MDVHZQBBB ABSOLUTE AUTO0.1NOMS HealthcareBasophils/100 WBC (Bld)0.5 %0.2 - 2.0 %NOMWashington University Medical CenterEosinophils/100 WBC (Bld)4 %0.9 - 7.0 %[facility] CenterErythrocyte distribution width (RBC) [Ratio]12.2 %11.0 - 15.0 %[facility] Medical CenterIMMATURE GRANULOCYTES ABS AUTO0.08HighCrossroads Regional Medical CenterImmature granulocytes/100 WBC (Bld) 0.6 %High0.0 - 0.5 %[facility] Medical CenterInterpretation and review of laboratory resultsAbnormalCrossroads Regional Medical CenterLYMPHOCYTES ABSOLUTE AUTO2.6NOSaint Mary's Health Center Lymphocytes/100 WBC (Bld)18.4 %Low20.5 - 60.0 %[facility] HospitalH (RBC) [Entitic mass]31.5 pg26.7 - 34.0 pgRay County Memorial HospitalHC (RBC) [Mass/Vol]34.1 g/dL29.9 - 35.2 g/dLRay County Memorial HospitalV (RBC) [Entitic vol]92.4 fL81.0 - 99.0 fLCrossroads Regional Medical CenterMONOCYTES ABSOLUTE AUTO0.6[facility] CenterMonocytes/100 WBC (Bld)4.3 % 1.7 - 12.0 %[facility] CenterNEUTROPHILS ABSOLUTE AUTO10.1HighCrossroads Regional Medical Center Neutrophils/100 WBC (Bld)72.2 %43.0 - 75.0 %[facility] Medical CenterPlatelet mean volume (Bld) [Entitic vol]10.2 fL9.5 - 13.5 fLCrossroads Regional Medical CenterTB EO #0.6[facility] TBH PCG057FUBMCass Medical Center RBC3.94LowSaint Louis University Health Science Center WBC13.9HighCrossroads Regional Medical CenterCLINISYNCCBC without diffon 45-27-1572Ueiaiznsk (Bld) [#/Vol]261 10*3/uLPaulding County HospitalRb Mcv (Fl) By Automated Count92.4Paulding County HospitalDrug Screen, Urineon 63-86-1091Wrnyiprdekp/MethamphetamineNegative [facility] HospitalBarbituratesNegativePaulding County Hospital BenzodiazepinesNegativePaulding County HospitalCocaine MetaboliteNegative [facility] HospitalMethadoneNegativePaulding County HospitalOpiatesNegative [facility] HospitalOxycodoneNegativePaulding County HospitalPhencyclidine NegativePaulding County HospitalThc Marijuana, UrineNegativePaulding County HospitalHBV surface Ag IA Qlon 49-08-8536Tcmewodhg B Surface AntigenNegative [facility] HospitalHCV Ab IA Qlon 98-38-6490FBJ Ab Ql (S)Non-Reactive [facility] HospitalHIV 1+2 Ab+HIV1 p24 Ag IA Qlon 06-71-7314BVR 1&2 AB/AG Non-ReactivePaulding County HospitalHemoglobin A1con 30-03-8477DfS7n (Bld) [Mass fraction]5.1 %4.0 - 6.0 %[facility] County HospitalLaboratory - Hematology and Cell countson 90-28-9058Zrjitenwxb (Bld) [Volume fraction]36.4 %[facility] Hemoglobin (Bld) [Mass/Vol]12.4 g/dLCrossroads Regional Medical CenterNo Panel Informationon 72-80-7147YWIT HealthcareRubella IGG immune statuson 07-69-1623Xoneygp immune IgGIMMUNEPaulding County HospitalT. pallidum IgG+IgM IA Ql (S)Ordered By: Christina Bertrand on 90-59-3927UqryaznxMai-ReactivePaulding County HospitalType and screenon 37-53-8960Ble/Rh(D)PositivePaulding County HospitalHCG ( test) Ql (U)on 43-59-9374Lqkqjdyefxbhab and review of laboratory resultsAbnormPenn Highlands Healthcare Preg Test, UrPositiveNegativeNOSaint Mary's Health CenterNOMN HealthcareUS OB TRANSVAGINALon 81-42-0981UA OB TRANSVAGINALFINDINGS: A single intrauterine gestational sac [...] No LMP recorded.Urinalysis macro (dipstick) panel (U)on 06-05-9992Clqecrxcj, UA NegativeNegative - 4(70) +++ mg/dLNOMS HealthcareBlood, UANegativeNegative - 50 Surjit/City HospitalNOMN HealthcareClarity, UAClearNOMS HealthcareColor, UAYellowNOMS HealthcareGlucose, UANegativeNegative - 2000(110) ++++ mg/dLNOMN Healthcare Interpretation and review of laboratory resultsNormalNOMS HealthcareKetones, UA NegativeNegative - 160(16) ++++ mg/dLNOMN HealthcareLeukocytes, UANegative Negative - 500+++ Kaleigh/mcLNOMN HealthcareNitrite, UANegativeNegative - Positive NOMS HealthcarepH, UA75 - 9NOMS HealthcareProtein, UANegativeNegative - 2000(20) ++++ mg/dLNOMN HealthcareSpec Grav, UA1.0051 - 1.03NOMS HealthcareUrobilinogen, UA0.20.2 - 12 mg/dLNOMS HealthcareNOMS HealthcareALL PROGESTERONEon 01-18-2025 PROGESTERONE8.7 ng/mL.[facility] HealthcareComment on above:Follicular phase 0.1 - 0.9 Luteal phase 1.8 - 23.9 Ovulation phase 0.1 - 12.0 First trimester 11.0 - 44.3 Second trimester 25.4 - 83.3 Third trimester 58.7 - 214.0 Postmenopausal 0.0 - 0.1 Performed at: [address] [id number] Air Tank Assembler: Yobany Blount PhD, Phone: [phone] [facility] HospitalPATHOLOGY REQUEST FOR LAB CORPon 17-65-1395MHOOZSQVE REQUEST FOR LAB CORPNOMS HealthcareComment on above:See report. Scanned copy available in EMR.SKIN SPECIMENFIRThe Children's Hospital FoundationALL PROGESTERONEon 75-14-9501LCYVXPJQNCHK42.9 ng/mL.NOMS HealthcareComment on above:Follicular phase 0.1 - 0.9 Luteal phase 1.8 - 23.9 Ovulation phase 0.1 - 12.0 First trimester 11.0 - 44.3 Second trimester 25.4 - 83.3 Third trimester 58.7 - 214.0 Postmenopausal 0.0 - 0.1 Performed at: [address] [id number] [employer] Tank Assembler: Yobany Blount PhD, Phone: [phone] [facility] HospitalPathology Request for Lab Corpon 52-91-4819Zsxacxmgg Request for Lab CorpNoFrye Regional Medical Center Physician GroupComment on above:Order Comment: SKIN SPECIMENResult Comment: See report. Scanned copy available in EMR. PERFORMED BY: [place] [address] PATHOLOGIST BENEFITS COORDINATOR ANAHI TRAN M.D.Performed By: #### PATH TO [facility] #### [place] [address] USAIGP,APTIMA HPV,AGE GDLNon 29-96-6194JAC GDLN ACOG TESTING Note.NOMS HealthcareComment on above:TESTS RESULT FLAG UNITS REF RANGE LAB Clinician Provided Cytology Information Source.............Cervix;Endocervix No. of containers..01 ThinPrep Vial Age Alberto FORREST Marjorie... 32 FLAG LEGEND: L-Low Normal,H-High Normal,LL-Alert Low,HH-Alert High <-Panic Low,>-Panic High,A-Abnormal,AA-Critical Abnormal Performed at: 01 =[address] [address] Vonnie Woodard MD, HPV APTIMANegativeNegativeNOMS HealthcareComment on above:This nucleic acid amplification test detects fourteen high- risk HPV types (16,18,31,33,35,39,45,51,52,56,58,59,66,68) without differentiation. Performed at: =[address] [id number] Air Tank Assembler: Vonnie Woodard MD, Phone: [phone] Performed at: [address] [id number] Air Tank Assembler: Vonnie Woodard MD, Phone: [phone] IGP, APTIMA HPV, RFX 16/18,45Note.NOMS HealthcareComment on above:TESTS RESULT FLAG UNITS REF RANGE LAB DIAGNOSIS: 02 NEGATIVE FOR INTRAEPITHELIAL LESION OR MALIGNANCY. Specimen adequacy: 02 Satisfactory for evaluation. Endocervical and/or squamous metaplastic cells (endocervical component) are present. Performed by: 02 Quiana Vyas, Heat Treat Technician (ASCP) . 02 Note: Note 02 The [...] <-Panic Low,>-Panic High,A-Abnormal,AA-Critical Abnormal Performed at: [address] [address] Vonnie Woodard MD, BRUSH-SPATULA CERVIX ENDOCERVIX CLINISYNCNOSaint Mary's Health CenterALL PROGESTERONEon 92-48-8881TIWCYVXHOOHT52.2 ng/mL.[facility] HealthcareComment on above:Follicular phase 0.1 - 0.9 Luteal phase 1.8 - 23.9 Ovulation phase 0.1 - 12.0 First trimester 11.0 - 44.3 Second trimester 25.4 - 83.3 Third trimester 58.7 - 214.0 Postmenopausal 0.0 - 0.1 Performed at: [facility]coSaint [facility] [address] [place], [place] [id number] Air Tank Assembler: Yobany Blount PhD, Phone: [phone] CLINISYNCNOHermann Area District Hospital AND AUTO DIFFon 96-98-4744ETULRBYB BASOPHIL0.1 X10E9/LNormal0.0-0.2PRiverside Methodist HospitalComment on above:Performed By: #### CBCGavin, CMP, 23433-2, 93776-2, THYR #### [facility] ([id number]) [address] [place] [address] 63693SPRFSFAT NEUTROPHIL6.9 X10E9/LHigh1.5-6.6ProTexas Health Presbyterian Hospital Of RockwallComment on above:Performed By: #### CBCA, [facility], , 16318-9, THYR #### [facility] ([id number]) [address] [place] [address] 17473Llmuygamz/100 WBC (Bld)1.1 %NormalMedina Hospital Comment on above:Performed By: #### CBCA, [facility], , 15065-1, THYR #### [facility] ([id number]) [address] [place] [address] 28174Gwpcywirtok (Bld) [#/Vol]0.3 10*3/uLNormal0.0-0.4Medina HospitalComment on above:Performed By: #### CBCA, [facility], , 77202-6, THYR #### [facility] ([id number]) [address] [place] [address] 19504Zscszrlbusq/100 WBC (Bld)2.3 %NormalMedina Hospital Comment on above:Performed By: #### CBCA, CMP, , 57154-1, THYR #### [facility] ([id number]) [address] [place] [address] 76361Nlxiokuoxxa distribution width (RBC) [Ratio]12.6 %Normal 11.5-15.0Medina HospitalComment on above:Performed By: #### CBCA, CMP, , 89162-0, THYR #### [facility] ([id number]) [address] [place] [address] 42195Wckbwwugtt (Bld) [Volume fraction]40.4 %Hgtvtx57-82IetDjjobnTexas Health Presbyterian Hospital Of RockwallComment on above:Performed By: #### KARSON, CMP, 76749-3, 63240-0, THYR #### [facility] ([id number]) [address] [place] [address] 74398Twzrazpjwf (Bld) [Mass/Vol]13.7 g/vLRqmkje90.7-15.5PRiverside Methodist HospitalComment on above:Performed By: #### KARSON, CMP, 62058-0, 34233-2, THYR #### [facility] ([id number]) [address] [place] [address] 52986Otcvlyalbpv (Bld) [#/Vol]3.6 10*3/uLHigh1.0-3.5PRiverside Methodist HospitalComment on above:Performed By: #### KARSON, CMP, 42520-7, 02145-8, THYR #### [facility] ([id number]) [address] [place] [address] 76158Gtqaiwahdvk/100 WBC (Bld)31.6 %NormalMedina Hospital Comment on above:Performed By: #### CBCGavin, CMP, 90256-4, 49195-0, THYR #### [facility] ([id number]) [address] [place] [address] 70881PZL (RBC) [Entitic mass]30.9 paRpksni16-75EfzWzjcwnTexas Health Presbyterian Hospital Of RockwallComment on above:Performed By: #### CBCA, CMP, 96381-4, 78926-8, THYR #### [facility] ([id number]) [address] [place] [address] 35562XUME (RBC) [Mass/Vol]34.0 g/aOQkcsyq14-94PmbOcqgbdMedina HospitalComment on above:Performed By: #### CBCA, CMP, 82001-2, 98883-8, THYR #### [facility] ([id number]) [address] [place] [address] 42539KCW (RBC) [Entitic vol]91 rQCscrid25-187EjaJtfpke Fremont HospitalComment on above:Performed By: #### CBCA, CMP, 14197-5, 92961-9, THYR #### [facility] ([id number]) [address] [place] [address] 14709Unuyucxqq (Bld) [#/Vol]0.6 10*3/uLNormal0-0.9Medina HospitalComment on above:Performed By: #### CBCA, CMP, 33854-5, 31466-4, THYR #### [facility] ([id number]) [address] [place] [address] 15188Kbnpqumft/100 WBC (Bld)5.4 %[facility] Comment on above:Performed By: #### CBCA, CMP, 74477-4, 82702-3, THYR #### [facility] ([id number]) [address] [place] [address] 96592Mdgywxixqch/100 WBC (Bld)59.6 %[facility] Comment on above:Performed By: #### CBCA, CMP, 89877-0, 31674-8, THYR #### [facility] ([id number]) [address] [place] [address] 35507Aqadvaik mean volume (Bld) [Entitic vol]7.9 fLNormal7-12 ProMScripps Mercy HospitalComment on above:Performed By: #### CBCA, CMP, 33546- 9, 92125-7, THYR #### [facility] ([id number]) [address] [place] [address] 77876Tfqdclpgx (Bld) [#/Vol]346 10*3/iSFwfcdk639-871VseFenfsm Fremont HospitalComment on above:Performed By: #### KARSON, CMP, 87923-0, 96294-7, THYR #### [facility] ([id number]) [address] [place] [address] 38647PAT COUNT4.44 X10E12/LNormal3.80-5.20[facility] Comment on above:Performed By: #### KARSON, CMP, 62798-8, 63522-6, THYR #### [facility] ([id number]) [address] [place] [address] 61868IDL (Bld) [#/Vol]11.5 10*3/uLHigh4.0-11.0Medina HospitalComment on above:Performed By: #### KARSON, CMP, 74971-0, 77450-2, THYR #### [facility] ([id number]) [address] [place] [address] 09227IMYIPXLZWZXLQ METABOLIC PANELon 42-75-7821Yxjpqbz [Mass/Vol]4.0 g/dLNormal3.2-5.3PRiverside Methodist HospitalComment on above:Performed By: #### KARSON, CMP, 58205-5, 77792-6, THYR #### [facility] ([id number]) [address] [place] [address] 67776GVS [Catalytic activity/Vol]50 U/EWdwpbz54-469XjoAvyxsxTexas Health Presbyterian Hospital Of RockwallComment on above:Performed By: #### MATTHEWA, CMP, 99327-1, 84180-1, THYR #### [facility] ([id number]) [address] [place] [address] 28734YYY [Catalytic activity/Vol]19 U/LNormal0-31PRiverside Methodist HospitalComment on above:Performed By: #### LUKAS TY, 43445-3, 04496-3, THYR #### [facility] ([id number]) [address] [place] [address] 99104Vdnei gap [Moles/Vol]11 mmol/LNormal5-15ProTexas Health Presbyterian Hospital Of RockwallComment on above:Performed By: #### KARSON, LUKAS, 84183-3, 36831-4, THYR #### [facility] ([id number]) [address] [place] [address] 24728RBD [Catalytic activity/Vol]18 U/LNormal0-41ProTexas Health Presbyterian Hospital Of RockwallComment on above:Performed By: #### LUKAS TY, 88127-9, 41746-4, THYR #### [facility] ([id number]) [address] [place] [address] 66938Xzfecywvp [Mass/Vol]0.4 mg/dLNormal0.3-1.2PRiverside Methodist HospitalComment on above:Performed By: #### LUKAS TY, 69140-6, 43291-1, THYR #### [facility] ([id number]) [address] [place] [address] 34093Jwntcwi [Mass/Vol]9.4 mg/dLNormal8.5-10.5PRiverside Methodist HospitalComment on above:Performed By: #### KARSON, LUKAS, 07669-2, 03129-5, THYR #### [facility] ([id number]) [address] [place] [address] 06542Bzkkvklu [Moles/Vol]106 mmol/KNnjagr01-090LlcViyowzTexas Health Presbyterian Hospital Of RockwallComment on above:Performed By: #### LUKAS TY, 84882-9, 35728-4, THYR #### [facility] ([id number]) [address] [place] [address] 02481QC4 [Moles/Vol]23 mmol/APafuku61-64XstKbvkqyRiverside Methodist Hospital Comment on above:Performed By: #### LUKAS TY, 76983-3, 64844-9, THYR #### [facility] ([id number]) [address] [place] [address] 16796Oygrfnljgj [Mass/Vol]0.76 mg/dLNormal0.40-1.00Medina HospitalComment on above:Result Comment: METHOD TRACEABLE TO IDMS STANDARD Performed By: #### LUKAS TY, 75831-9, 70623-6, THYR #### [facility] ([id number]) [address] [place] [address] 05028dUGV (CKD-EPI) NON-RACE DEPENDENT>90Normal>59ProTexas Health Presbyterian Hospital Of RockwallComment on above:Result Comment: Reported eGFR is based on the CKD-EPI 2020 equation that does not use a race coefficient.Performed By: #### LUKAS TY, , 47735-0, THYR #### [facility] ([id number]) [address] [place] [address] 63542Tjfklqp [Mass/Vol]114 mg/yZUdfe97-93VreQdylckMedina Hospital Comment on above:Performed By: #### LUKAS TY, , 54984-7, THYR #### [facility] ([id number]) [address] [place] [address] 43505Cbdlztouu [Moles/Vol]4.1 mmol/LNormal3.5-5.0Medina HospitalComment on above:Performed By: #### LUKAS TY, 98607-7, 58229-4, THYR #### [facility] ([id number]) [address] [place] [address] 88546Dqaifsy [Mass/Vol]7.3 g/dLNormal6.0-8.0Medina HospitalComment on above:Performed By: #### CBCGavin, CMP, 65234-6, 69662-8, THYR #### [facility] ([id number]) [address] [place] [address] 45255Lmuasc [Moles/Vol]140 mmol/FDhcwcu276-389VtmBseqku Fremont HospitalComment on above:Performed By: #### KARSON, LUKAS, 54430-2, 53682-7, THYR #### [facility] ([id number]) [address] [place] [address] 45234Mznx nitrogen [Mass/Vol]13 mg/dLNormal5-23Medina HospitalComment on above:Performed By: #### KARSON, LUKAS, 10436-4, 92329-5, THYR #### [facility] ([id number]) [address] [place] [address] 31205Ayfiem D-dimer DDU (PPP) [Mass/Vol]on 11-04-2024D DIMER<150 Normal<255Medina HospitalComselect specialty hospital-grosse [facility]inte on above:Result Comment: Results <255 ng/mL DDU: The presence of a VTE can safely be excluded with a negative D-Dimer result and Wells score. A negative result doesn't exclude the possibility of DIC. The test be repeated along with other diagnostic tests if the patient's symptoms persist or worsen. [email or web address] By: #### CBCA, CMP, 95444-6, 46826-6, THYR #### [facility] ([id number]) [address] [place] [address] 39673BFS ( test) Ql (U)on 73-74-8895Hzwy HCG ( test) Ql (U)NegativeNormalNEGProTexas Health Presbyterian Hospital Of RockwallComment on above: Performed By: #### 2106-3 #### [facility] ([id number]) [address] [place] [address], [place] [address]ZKVWXLPZZji 40-79-1140Kjpbuidhd [Mass/Vol]2.3 mg/dLNormal 1.8-2.6ProTexas Health Presbyterian Hospital Of RockwallComment on above:Performed By: #### LUKAS TY, 46364-5, 86727-1, THYR #### [facility] ([id number]) [address] [place] [address], [place] [address]JZHAJSQ PROFILEon 27-14-9015Sria T4 [Mass/Vol]0.88 ng/dLNormal 0.61-1.60ProTexas Health Presbyterian Hospital Of RockwallComment on above:Performed By: #### LUKAS TY, 61390-3, 18190-9, THYR #### [facility] ([id number]) [address] [place] [address], [place] [address]ZNU9.78 uIU/mLNormal0.49-4.67ProTexas Health Presbyterian Hospital Of RockwallComment on above:Performed By: #### LUKAS TY, 06447-0, 54913-2, THYR #### [facility] ([id number]) [address] [place] [address] [place] [address]JFR MACROSCOPIC NURon 30-19-4604QUZJDLNZS NURNegativeNormalNEG ProMScripps Mercy HospitalComment on above:Performed By: #### NUM #### [facility] ([id number]) [address] [place] [address], [place] [address]WSBES/HGB NURTraceAbnormalNEGMedina HospitalComment on above:Performed By: #### NUM #### [facility] ([id number]) [address] [place] [address], [place] [address]SEUXYBF NURNegativeNormalNEGMedina HospitalComment on above:Performed By: #### NUM #### [facility] ([id number]) [address] [place] [address] 70220HIFYNJH NURNegativeNormalNEGMedina HospitalComment on above:Performed By: #### NUM #### [facility] ([id number]) [address] [place] [address] 04003ONAAGKGVP ESTERASE NURSmallAbnormalNEGMedina HospitalComment on above:Performed By: #### NUM #### [facility] ([id number]) [address] [place] [address] 24632PYXFYGE NURNegativeNormalNEGMedina HospitalComment on above:Performed By: #### NUM #### [facility] ([id number]) [address] [place] [address] 37861FQ NUR6.3Docssb4.0-8.5PRiverside Methodist HospitalComment on above:Performed By: #### NUM #### [facility] ([id number]) [address] [place] [address] 81201EYRGNNU NURNegativeNormalNEGMedina HospitalComment on above:Performed By: #### NUM #### [facility] ([id number]) [address] [place] [address] [place] [address]NEHCZVIB GRAVITY NUR1.155Xewjde1.003-1.035ProTexas Health Presbyterian Hospital Of RockwallComment on above:Performed By: #### NUM #### [facility] ([id number]) [address] [place] [address] 13624TZHTIZBKDZDG NUR0.2 eu/dLNormal<1.1PRiverside Methodist Hospital Comment on above:Performed By: #### NUM #### [facility] ([id number]) [address] [place] [address] 97694AK CHEST 1 VWon 41-15-1335SQ CHEST 1 VWXR CHEST 1 VW History: Palpitations Exam/Technique: Portable upright AP chest Comparison: 11/12/2022 Findings: There is no active pulmonary or pleural disease displayed. Cardiac and mediastinal contours appear within normal limits on this AP projection. IMPRESSION: No evidence of active pulmonary disease. Finalized by Tres Giron MD on 11/04/2024 1:02 AMNormalSelect Medical Specialty Hospital - Cincinnati Northca [facility] PROGESTERONEon 50-63-4546JPGIFDNRAMWS63.8 ng/mL.[facility] Comment on above:Follicular phase 0.1 - 0.9 Luteal phase 1.8 - 23.9 Ovulation phase 0.1 - 12.0 First trimester 11.0 - 44.3 Second trimester 25.4 - 83.3 Third trimester 58.7 - 214.0 Postmenopausal 0.0 - 0.1 Performed at: [facility] [employer] [id number] Air Tank Assembler: Yobany Blount PhD, Phone: [phone] [facility]EE HOSPITALAnnexonBarnes-Jewish Saint [facility] PROGESTERONEon 48-32-6069MQNZFXEWCAET72.3 ng/mL.NOMS HealthcareComment on above:Follicular phase 0.1 - 0.9 Luteal phase 1.8 - 23.9 Ovulation phase 0.1 - 12.0 First trimester 11.0 - 44.3 Second trimester 25.4 - 83.3 Third trimester 58.7 - 214.0 Postmenopausal 0.0 - 0.1 Performed at: [facility] [employer] [id number] Air Tank Assembler: Yobany Blount PhD, Phone: [phone] [facility] PROGESTERONEon 50-49-9196XYOEZCQUXHCW8.5 ng/mL.NOMS HealthcareComment on above:Follicular phase 0.1 - 0.9 Luteal phase 1.8 - 23.9 Ovulation phase 0.1 - 12.0 First trimester 11.0 - 44.3 Second trimester 25.4 - 83.3 Third trimester 58.7 - 214.0 Postmenopausal 0.0 - 0.1 Performed at: [facility] [employer] [id number] [employer]er: Yobany Blount PhD, Phone: [phone] [facility] MANISTEE HOSPITALHydra BiosciencesHumbold[facility] ([facility] PROGESTERONEon [id number] ng/mL.[facility] HealthcareComment on above:Follicular phase 0.1 - 0.9 Luteal phase 1.8 - 23.9 Ovulation phase 0.1 - 12.0 First trimester 11.0 - 44.3 Second trimester 25.4 - 83.3 Third trimester 58.7 - 214.0 Postmenopausal 0.0 - 0.1 Performed at: [facility] [address] [id number] [employer]: Yobany Blount PhD, Phone: [phone] [facility] CBC WITH AUTO DIFFon [id number] ABSOLUTE AUTO0.1NOMS HealthcareBasophils/100 WBC (Bld)0.6 %0.2 - 2.0 %[facility] Eosinophils/100 WBC (Bld)2.8 %0.9 - 7.0 %NOM HealthcareErythrocyte distribution width (RBC) [Ratio]12.1 %11.0 - 15.0 %NOM HealthcareHematocrit (Bld) [Volume fraction]40.6 %36.0 - 48.0 %[facility] CenterHemoglobin (Bld) [Mass/Vol]13.5 g/dL 12.0 - 16.0 g/dLCrossroads Regional Medical CenterIMMATURE GRANULOCYTES ABS AUTO0.02NOMS [facility] Immature granulocytes/100 WBC (Bld)0.3 %0.0 - 0.5 %NOMWashington University Medical CenterLYMPHOCYTES ABSOLUTE AUTO1.8NOMS HealthcareLymphocytes/100 WBC (Bld)23.0 %20.5 - 60.0 %[facility] HospitalH (RBC) [Entitic mass]30.6 pg26.7 - 34.0 pgNOSaint Luke's North Hospital–Barry RoadHC (RBC) [Mass/Vol]33.3 g/dL29.9 - 35.2 g/dLCrossroads Regional Medical CenterMCV (RBC) [Entitic vol]92.1 fL 81.0 - 99.0 fLNOSaint Mary's Health CenterMONOCYTES ABSOLUTE AUTO0.5NOMS [facility] Monocytes/100 WBC (Bld)6.6 %1.7 - 12.0 %NOM HealthcareNEUTROPHILS ABSOLUTE AUTO 5.3NOMS HealthcareNeutrophils/100 WBC (Bld)66.7 %43.0 - 75.0 %[facility] Platelet mean volume (Bld) [Entitic vol]9.8 fL9.5 - 13.5 fLNOMS [facility] EO #0.2[facility] HospitalTBH [id number] [facility] RBC4.41[facility] WBC8.0 NOMS HealthcareCLINISYNCNOMS HealthcareUS PELVIS W/ TRANSVAGINALon [id number], [place] [id number] Ultrasound Report Signed Patient: ELLEN RAMIRES MR#: [id number] : 1990 Acct:[id number] Age/Sex: 34 / F ADM Date: 04/24/24 Loc: US Attending Dr: Caesar Broderick D.O. Ordering Physician: Caesar Broderick D.O. Date of Service: 04/24/24 Procedure(s): US pelvis w/ transvaginal Accession Number(s): [id number] cc: Caesar Broderick D.O.; Sabiha Aviles [place] [id number] Patient Name: ELLEN RAMIRES MRN: [id number] date: 1990 Sex: F Assigned Patient Location: [place] Current Patient Location: Accession/Order Number: [id number] Exam Date: 04/24/2024 14:00 Report Date: 04/25/2024 [...] Dean M.D. Signed By: 04/25/2437 DD/ TD/TT: Refurbish Technician:TBHRadiology, Radiologist, - 04/25/2024 [place] [address] Ultrasound Report Signed Patient: ELLEN RAMIRES MR#: [id number] : 1990 Acct:[id number] Age/Sex: 34 / F ADM Date: 04/24/24 Loc: US Attending Dr: Caesar Broderick D.O. Ordering Physician: Caesar Broderick D.O. Date of Service: 04/24/24 Procedure(s): US pelvis w/ transvaginal Accession Number(s): [id number] cc: Caesar Broderick D.O.; Sabiha Aviles GATHERING MACHINE FEEDER [facility] [place] [id number] Patient Name: ELLEN RAMIRES MRN: [id number] date: 1990 Sex: F Assigned Patient Location: Current Patient Location: Accession/Order Number: [id number] Exam Date: 04/24/2024 14:00 Report Date: 04/25/2024 [...] M.D. Signed By: 04/25/2437 DD/ 3 TD/TT: Refurbish Technician: [facility] CenterRadiology Study observation (narrative)[facility] CenterUS PELVIS W/ TRANSVAGINALOrdered By: Radiologist Radiology on 25-04-8985SSJECrossroads Regional Medical Center Work Phone: aLL CBC WITH AUTO DIFFon 62-90-2344PUNIPJZRV ABSOLUTE AUTO0.1NOMS HealthcareBasophils/100 WBC (Bld)0.5 %0.2 - 2.0 %[facility] Eosinophils/100 WBC (Bld)2.8 %0.9 - 7.0 %[facility] CenterErythrocyte distribution width (RBC) [Ratio]12.0 %11.0 - 15.0 %[facility] CenterHematocrit (Bld) [Volume fraction]39.7 %36.0 - 48.0 %[facility] CenterHemoglobin (Bld) [Mass/Vol]13.4 g/dL 12.0 - 16.0 g/dLCrossroads Regional Medical CenterIMMATURE GRANULOCYTES ABS AUTO0.03NOSaint Mary's Health Center Immature granulocytes/100 WBC (Bld)0.3 %0.0 - 0.5 %[facility] CenterInterpretation and review of laboratory resultsAbnormalNOSaint Mary's Health CenterLYMPHOCYTES ABSOLUTE AUTO2.9NOMS [facility] HospitalLymphocytes/100 WBC (Bld)24.4 %20.5 - 60.0 %[facility] HospitalH (RBC) [Entitic mass]30.7 pg26.7 - 34.0 pgRay County Memorial HospitalHC (RBC) [Mass/Vol]33.8 g/dL29.9 - 35.2 g/dLRay County Memorial HospitalV (RBC) [Entitic vol]91.1 fL 81.0 - 99.0 fLENCOMPASS HEALTH HealthcareMONOCYTES ABSOLUTE AUTO0.6[facility] Monocytes/100 WBC (Bld)5.2 %1.7 - 12.0 %[facility] HealthcareNEUTROPHILS ABSOLUTE AUTO 8.0HighNOMN HealthcareNeutrophils/100 WBC (Bld)66.8 %43.0 - 75.0 %[facility] HealthcarePlatelet mean volume (Bld) [Entitic vol]10.1 fL9.5 - 13.5 fLCrossroads Regional Medical CenterTBH EO #0.3NOMS HealthcareTB [id number] [facility] HospitalTB RBC4.36NOMS [facility] HospitalTBH WBC12.0HighNOMN HealthcareCLINISYNCNOMS HealthcarePOCT EKGOrdered By: Sheyla Powell on 49-70-4600LtxOzzslxWayne HealthCare Main CampusNo Panel Information Ordered By: Pinky Singh on 15-47-4668Blmks Strep (POC)[facility] CenterCytology Cervical or vaginal smear or scraping studyon 11-19-2022 [facility] HealthcareCOVID/FLU/RSV RT-PCRon 00-08-3814ZOAE-CoV-2 (COVID-19) RNA PEACE+probe Ql (Unsp spec)PositiveNort ForgeRock Other COVID/FLU/RSV RT-PCRNegativeNort ForgeRock Other Vital Signs Date TimeVital SignValuePerforming EpjmhmmisYqeeiuky58-08-1661 13:42-0500Body mass index (BMI) [Ratio]43.33 kg/h7Kcxfi Davie DO Work Phone: [facility] CenterWaksvghqwo89-85-6189 13:42-0500Body .28 kgCorey Davie DO Work Phone: NOSaint Mary's Health CenterSbmopkvepe40-99-2507 13:42-0500Diastolic blood vicxtajt62 mm[Hg]Caesar Davie DO Work Phone: [phone] [place], [place] [address]Xfszclzmlg01-20-3502 13:42-0500Systolic blood mruoohcl388 mm[Hg]Caesar Davie DO Work Phone: 1(419)[address] [place], [place] 4044010-15-2025 09:03-0400Diastolic blood vpymhfom11 mm[Hg]Rody Uyen GATHERING MACHINE FEEDER Work Phone: 1(419)[facility] [place], [place] [address]Qlgplcgcvo61-15-7018 09:03-0400Systolic blood qgsigglv740 mm[Hg]Rody Uyen GATHERING MACHINE FEEDER Work Phone: 1(419)[address] [place] [address]-15-2025 09:02-0400Body mass index (BMI) [Ratio]42.99 kg/z5Xonixonr Uyen GATHERING MACHINE FEEDER Work Phone: 1(290)[address] [place], [place] 4044010-15-2025 09:02-0400Body szteom130.25 kgKristina Uyen GATHERING MACHINE FEEDER Work Phone: 1(419)[address] [place], [place] 4044010-09-2025 16:31-0400Body mass index (BMI) [Ratio]43.49 kg/w3Tcilerbm Uyen GATHERING MACHINE FEEDER Work Phone: 1(151)[address] [place], [place] 4044010-09-2025 16:31-0400Body pscpab379.73 kgKristina Uyen GATHERING MACHINE FEEDER Work Phone: 1(119)[facility] [place], [place] [address]Ehdesvtbwp59-36-8233 16:31-0400Diastolic blood wfkhcmee95 mm[Hg]Rody Uyen GATHERING MACHINE FEEDER Work Phone: 1(419)[address] [place], [place] 4044010-09-2025 16:31-0400Systolic blood jlvpaezf448 mm[Hg]Rody Uyen GATHERING MACHINE FEEDER Work Phone: 1(333)[address] [place], [place] 4044010-02-2025 15:07-0400Body mass index (BMI) [Ratio]43.03 kg/k6Geqdaiov Uyen GATHERING MACHINE FEEDER Work Phone: 1(419)[address] [place], [place] 4044010-02-2025 15:07-0400Body dmyxiw608.37 kgKristina Uyen GATHERING MACHINE FEEDER Work Phone: 1(592)[address] [place], [place] 4044010-02-2025 15:07-0400Diastolic blood qjnpanga41 mm[Hg]Rody Qiu GATHERING MACHINE FEEDER Work Phone: 1(257)[address] [place], [place] 4044010-02-2025 15:07-0400Systolic blood obxopjwp445 mm[Hg]Rody Qiu GATHERING MACHINE FEEDER Work Phone: 1(419)[address] [place], [place] 4044009-26-2025 07:51-0400Body zqigte903.7 cmYordy Cruz MD Work Phone: 1(419)[address] [place], [place] 7709209-26-2025 07:51-0400Body mass index (BMI) [Ratio]42.96 kg/m2Yordy Cruz MD Work Phone: 1(419)[address] [place], [place] 7709209-26-2025 07:51-0400Body .14 kgYordy Cruz MD Work Phone: 1(419)[address] [place], [place] 7709209-26-2025 07:51-0400Diastolic blood onkkwlue43 mm[Hg]Yordy Cruz MD Work Phone: 1(419)[address] [place], [place] 7709209-26-2025 07:51-0400Heart rate 87 /Glenna Cruz MD Work Phone: 1(419)[address] [place], [place] 7709209-26-2025 07:51-0400Systolic blood mm[Hg]Yordy Cruz MD Work Phone: 1(191)[address] [place], [place] 7709209-04-2025 11:30-0400Body mass index (BMI) [Ratio]42.88 kg/y9Mxpkc Davie DO Work Phone: 1(138)[facility] [place], [place] [address]Xqnnjzdplm66-27-5431 11:30-0400Body eqkcpu697.91 kgCorey Davie DO Work Phone: 1(427)[address] [place], [place] 4044009-04-2025 11:30-0400Diastolic blood bxubnboo91 mm[Hg]Caesar Davie DO Work Phone: 1(016)[address] [place], [place] 4044009-04-2025 11:30-0400Systolic blood panwfcxl206 mm[Hg]Caesar Davie DO Work Phone: 1(258)[address] [place], [place] 4044008-21-2025 11:00-0400Body mass index (BMI) [Ratio]42.63 kg/b1Pgxus Davie DO Work Phone: 1(360)225-[address] [place], [place] [address]Bfrnvduxbh38-02-7162 11:00-0400Body kqrmak454.19 kgCorey Davie DO Work Phone: 1(564)813-[address] [place], [place] [address]Qgsdmmdiwb37-89-9611 11:00-0400Diastolic blood rdbkzsaf95 mm[Hg]Caesar Davie DO Work Phone: 1(384)469-[address] [place], [place] [address]Fxekormzte09-05-7927 11:00-0400Systolic blood npawnfke813 mm[Hg]Caesar Davie DO Work Phone: 1(528)290-[address] [place], [place] [address]Chfnzmkcbx86-99-6324 11:42-0400Body mass index (BMI) [Ratio]42.29 kg/u0Cfczt Davie DO Work Phone: 1(663)698-[address] [place], [place] [address]Bomcskizqk78-64-0760 11:42-0400Body wjfase306.15 kgCorey Davie DO Work Phone: 1(166)163-[address] [place], [place] [address]Gimutevfet24-23-0394 11:42-0400Diastolic blood mm[Hg]Caesar Davie DO Work Phone: 1(398)857-[address] [place], [place] [address]Luwlocqqjp04-56-1948 11:42-0400Systolic blood lsnoucvq529 mm[Hg]Caesar Davie DO Work Phone: 1(699)417-[address] [place], [place] [address]Wedzrelxcv72-09-9835 10:03-0400Body mass index (BMI) [Ratio]41.66 kg/v0MknyfBur[facility]07-11-2025 10:03-0400Body weight 124.29 [facility]Bur[facility]07-11-2025 10:03-0400Diastolic blood kouduwog95 mm[Hg][facility]07-11-2025 10:03-0400Systolic blood qhjblluf418 mm[Hg][facility]05-15-2025 10:52-0400Body .7 Gilmer Lopez MD Work Phone: [facility]05-15-2025 10:52-0400 Body mass index (BMI) [Ratio]40.84 kg/z0LzrzodRobbie Lopez MD Work Phone: 1(216)[address] [place], [place] 1569505-15-2025 10:52-0400 Body tdikktwnpdf78.81 [degF]Robbie Lopez MD Work Phone: 1(216)[address] [place], [place] 1569505-15-2025 10:52-0400 Body syjjzs928.84 kgRobbie Lopez MD Work Phone: 1(216)[address] [place], [place] 1569505-15-2025 10:52-0400 Diastolic blood gfmloeuv78 mm[Hg]Robbie Lopez MD Work Phone: 1(216)[address] [place], [place] 1569505-15-2025 10:52-0400 Heart rate73 /minRobbie Lopez MD Work Phone: 1(216)[address] [place], [place] 1569505-15-2025 10:52-0400 Systolic blood jxxjpejp400 mm[Hg]Robbie Lopez MD Work Phone: 1(216)[address] [place], [place] 1569504-29-2025 13:38-0400 Body mass index (BMI) [Ratio]40.35 kg/l3Whepu Davie DO Work Phone: 1(435)879-[address] [place], [place] [address]Dmnxraftpc37-06-5296 13:38-0400Body iiyzzk030.39 kgCorey Davie DO Work Phone: 1(013)009-[address] [place], [place] [address]Jsoacrwmdw82-15-1200 13:38-0400Diastolic blood qvdgtabf77 mm[Hg]Caesar Davie DO Work Phone: 1(907)184-[address] [place], [place] [address]Smnnxffffh34-93-8804 13:38-0400Systolic blood icnmlvps787 mm[Hg]Caesar Davie DO Work Phone: 1(472)266-[address] [place], [place] [address]Auetaghymt01-06-0082 14:36-0400Body mass index (BMI) [Ratio]40.75 kg/o1Rnlqt Davie DO Work Phone: 1(225)709-[address] [place], [place] [address]Pmhlohhsdu04-93-0425 14:36-0400Body huukyt746.56 kgCorey Davie DO Work Phone: 1(572)028-[address] [place] [address]-21-2025 14:36-0400Diastolic blood oymxheln12 mm[Hg]Caesar Davie DO Work Phone: 1(125)376-[address] [place], [place] [address]Hijdgvfrke85-02-9301 14:36-0400Systolic blood leummbtc804 mm[Hg]Caesar Davie DO Work Phone: 1(417)[facility] [place], [place] [address]Saeyhymzma86-12-5366 14:03-0400Diastolic blood zbviqxyl13 mm[Hg]Caesar Davie DO Work Phone: 1(365)[facility] [place], [place] [address]Lyqjfouqpz85-41-7716 14:03-0400Systolic blood bsmpqydb733 mm[Hg]Caesar Davie DO Work Phone: 1(823)[facility] [place], [place] [address]Nxhpoggtsq84-26-3165 13:12-0500Body mass index (BMI) [Ratio]40.01 kg/r3Giimh Davie DO Work Phone: 1(267)[facility] [place], [place] [address]Jefaqqrnpu30-47-8163 13:12-0500Body outadb764.35 kgCorey Davie DO Work Phone: 1(427)[facility] [place], [place] [address]Jnyipkoekw18-35-2070 13:12-0500Diastolic blood obeuivip62 mm[Hg]Caesar Davie DO Work Phone: 1(409)[facility] [place], [place] [address]Jvbmmsodce98-70-5802 13:12-0500Systolic blood icomwvhs865 mm[Hg]Caesar Davie DO Work Phone: 1(920)[facility] [place], [place] [address]Itvsxuhugy04-39-9081 14:39-0400Body cqxyrh819.7 cmCorey Davie DO Work Phone: 1(756)[facility] [place], [place] [address]Epcrcwbttg26-23-7312 14:39-0400Body mass index (BMI) [Ratio]39.53 kg/s6Cxorw Davie DO Work Phone: 1(178)[facility] [place], [place] [address]Aitxvxsdtg49-95-3363 14:39-0400Body .94 kgCorey Davie DO Work Phone: 1(675)[facility] [place], [place] [address]Thcejaesqg93-47-2832 14:39-0400Diastolic blood noxdtlfa96 mm[Hg]Caesar Davie DO Work Phone: 1(361)[address] [place], [place] 4044010-21-2024 14:39-0400Systolic blood mm[Hg]Caesar Davie DO Work Phone: [facility] CenterAwjrfjranj19-58-1287 11:39-0400Body usjieu234.84 kgCorey Davie DO Work Phone: [facility] CenterJxwxphnnmf23-66-5280 11:39-0400Diastolic blood omiljiyw76 mm[Hg]Caesar Davie DO Work Phone: [facility] CenterHulgankfdu64-66-5552 11:39-0400Systolic blood jycoqftv284 mm[Hg]Caesar Davie DO Work Phone: 1(694)414-[address] [place], [place] [address]Ggtwrzutso79-72-4780 09:36-0400Body .57 kgCorey Davie DO Work Phone: [facility] CenterYizwabamhw69-54-2326 09:36-0400Diastolic blood kfuahdsg26 mm[Hg]Caesar Davie DO Work Phone: 1(335)194-[address] [place], [place] [address]Ufylrfpxcz28-26-7275 09:36-0400Systolic blood mm[Hg]Caesar Davie DO Work Phone: 1(681)088-[address] [place], [place] [address]Yvjdlltcva87-47-5668 10:50-0400Body ecvxgw056.7 Ji Fraire MD Work Phone: [facility]07-23-2024 10:50-0400Body mass index (BMI) [Ratio]40.66 kg/h9WrajayJamse Fraire MD Work Phone: 1(113)773-[address] [place], [place] 3294807-23-2024 10:50-0400Body osmtxt597.29 kgJames Fraire MD Work Phone: [facility]07-23-2024 10:50-0400Diastolic blood ybznpajk98 mm[Hg]James Fraire MD Work Phone: [facility]07-23-2024 10:50-0400Heart rate 83 /minJames Fraire MD Work Phone: [facility]07-23-2024 10:50-1723AeC6% (BldA) [Mass fraction]98 %James Fraire MD Work Phone: [facility]07-23-2024 10:50-0400Systolic blood pnvojagv143 mm[Hg]James Fraire MD Work Phone: [facility]04-04-2024 12:26-0400Body zfqmvu955.72 cmL[facility]04-04-2024 12:26-0400Body mass index (BMI) [Ratio]42.6 kg/p5UpzrqxrxaLakehealth Beachwood Medical Center04-04-2024 12:26-0400Body kghtpetfzxs30.3 [degF][facility]04-04-2024 12:26-0400Body evnmct727.11 kgLakehealth Beachwood Medical Center04-04-2024 12:26-0400Diastolic blood psukcpoo07 mm[Hg][facility] 11-24-2023 12:26-0400Heart rate75 /[facility] 11-24-2023 12:26-0400Respiratory rate18 /[facility] 11-24-2023 12:26-2043GlW3% (BldA) [Mass fraction]98 %[facility]04-04-2024 12:26-0400Systolic blood tfebymzk738 mm[Hg][facility]02-20-2023 11:35-0500Body gvjnap859.72 Glendy Singh Other [employer] Other 02-20-2023 11:35-0500Body mass index (BMI) [Ratio] 42.27 kg/a9NucnhyPinky Singh Other [employer] Other 02-20-2023 11:35-0500Body vezvremnupf24.8 [degF]Pinky Singh Other [employer] Other 02-20-2023 11:35-0500Body eoumcr706.1 kgPinky Singh Other [employer] Other 02-20-2023 11:35-0500Respiratory rate18 /minPinky Singh Other [employer] Other 02-20-2023 11:35-9531KlP8% (BldA) [Mass fraction]98 % Pinky Singh Other [employer] Other Encounters Encounter DateEncounter TypeCare ProviderFacilityStart: 06-24-2025 End: 95-88-6363Rhkljr flowsheetCorey Davie DO Work Phone: [facility] [place] [facility]YNStart: 06-24-2025 End: 31-54-3328Ijkdjd flowsheetCorey Davie DO Work Phone: [facility] [place] [facility]BGYNStart: 06-24-2025 End: 90-51-9576Hvspoi outpatient visit 15 minutesCorey Davie DO Work Phone: noms [place] OBGYNComment on above:Second trimester ([facility]); 25 weeks gestation of ([facility]); H/O pre-eclampsia in prior , currently ([facility]); Vitamin D deficiency; Chronic hypertension affecting ([facility]); Diabetes mellitus screeningStart: 06-24-2025 End: 59-52-3597degyswjjiqKKCNB FAZIONot AvailableStart: 06-18-2025 End: 70-41-3459Qibqed outpatient visit 25 minutesYordy Cruz MD Work Phone: [phone]-Ftzfu [facility] at [facility] Comment on above:Chronic hypertension affecting (Primary Dx); 20 weeks gestation of ; Anxiety disorder affecting , antepartum; Acute palmoplantar pustular psoriasis; Severe obesity due to excess calories affecting , antepartum ([facility]) Start: 06-18-2025 End: 41-92-1884izzclgwbowHQF [facility] HospitalStart: 06-18-2025 End: 30-45-7367vpbknfgwmcTSFAQ [facility] HospitalStart: 06-05-2025 End: 84-15-8662Esiooe flowsMark Qiu GATHERING MACHINE FEEDER Work Phone: [facility]BGYNStart: 06-05-2025 End: 89-31-2764Zmqpgy flowsMark Qiu GATHERING MACHINE FEEDER Work Phone: [facility] [place] [facility]BGYNStart: 06-05-2025 End: 74-35-2303Zasylzxk flow Karel Qiu GATHERING MACHINE FEEDER Work Phone: [facility] [place] OBGYNComment on above:Second trimester ([facility]); 23 weeks gestation of ([facility])Start: 06-05-2025 End: 61-16-7529mipggxabsrBPZUZLXO UYENNot AvailableStart: 05-30-2025 End: 19-59-8863Zayptlyo flow Karel Qiu GATHERING MACHINE FEEDER Work Phone: [facility] [place] OBGYNComment on above:Chronic hypertension affecting ([facility]) (Primary Dx); Second trimester ([facility]); 22 weeks gestation of ([facility])Start: 05-30-2025 End: 17-08-7721xoisxamlihDHAJQAFO UYENNot AvailableStart: 05-30-2025 End: 75-29-8387Ajdygu flowsMark Qiu GATHERING MACHINE FEEDER Work Phone: [facility] [facility]BGYNStart: 05-30-2025 End: 44-62-4462Gapftc flowsMark Qiu GATHERING MACHINE FEEDER Work Phone: [facility] [place] [facility]BGYNStart: 05-24-2025 End: 52-43-0982Yvodeb OnlyAmy Nikkie LPNMaternal- Medicine at [facility] CenterComment on above:Acute palmoplantar pustular psoriasis (Primary Dx); Chronic hypertension affecting ; Severe obesity due to excess calories affecting , antepartum ([facility]); Hypertension affecting in second trimesterStart: 05-23-2025 End: 94-98-0464nmgipgdlijZFHSTGJA EBERLYNot AvailableStart: 05-23-2025 End: 48-86-4956Xbvzbdgr flow Karel Qiu NP Work Phone: [facility] OBGYNComment on above:Second trimester ([facility]); 21 weeks gestation of ([facility]); induced hypertension, antepartum ([facility]); Vitamin D deficiency; H/O pre-eclampsia in prior , currently ([facility])Start: 05-23-2025 End: 82-17-2553Pqnlzc Jennyfer Qiu NP Work Phone: NO[facility] [place] [facility]BGYNStart: 05-23-2025 End: 94-78-1981Pzwmwz Jennyfer Qiu NP Work Phone: NOP[facility] [place] [facility]BGYNStart: 05-23-2025 End: 93-18-3191Qqhbegnzo Result EncounterCorey Davie DO Work Phone: noms External Department UnsolicitedStart: 05-17-2025 End: 47-06-0408Hqnppa consultation new/estab patient 62 Hannah Hare MD Work Phone: [phone]-Obkgj Medicine at [facility] Comment on above:Chronic hypertension affecting (Primary Dx); Acute palmoplantar pustular psoriasis; Severe obesity due to excess calories affecting , antepartum ([facility]); 20 weeks gestation of pregnancyStart: 05-17-2025 End: 18-59-9598Aimbsc OnlyAmy Nikkie LPNMaternal- Medicine at [facility] CenterComment on above:Acute palmoplantar pustular psoriasis (Primary Dx); Chronic hypertension affecting ; Severe obesity due to excess calories affecting , antepartum ([facility]); Hypertension affecting in second trimesterStart: 04-29-2025 End: 03-61-3717Klqtderlq department patient visitCOMMUNCLEVELAND [facility] Centertart: 04-25-2025 End: 65-65-4422Yvsutx flowsheetCorey Davie DO Work Phone: noMS [place] OBGYNStart: 04-25-2025 End: 39-06-8834Fahpht flowsheetCorey Davie DO Work Phone: noMS [place] OBGYNStart: 04-25-2025 End: 29-60-2534Jwtqke outpatient visit 15 minutesCorey Davie DO Work Phone: noms [place] OBGYNComment on above:Screening, , for anatomic survey ([facility]); Second trimester ([facility]); 17 weeks gestation of ([facility]); Screen for STD (sexually transmitted disease); Need for maternal serum alpha-protein (MSAFP) screening ([facility]); induced hypertension, antepartum ([facility]); Vitamin D deficiencyStart: 04-25-2025 End: 08-52-8283alssmpeszpMUQNW FAZIONot AvailableStart: 04-23-2025 End: 10-75-7414Tykua Caroline Cruz MD Work Phone: [phone]-Anegd Medicine at [facility] Start: 04-21-2025 End: 20-35-5099Ipjsejbvc Result EncounterCorey Davie DO Work Phone: noms External Department UnsolicitedStart: 04-21-2025 End: 60-41-1771Zrhsvztbx Result EncounterCorey Davie DO Work Phone: noms External Department UnsolicitedStart: 04-19-2025 End: 32-66-2631NismbgBettina Moise RNMaternal- Medicine at [facility] CenterComment on above:Hypertension affecting in second trimester (Primary Dx)Start: 04-17-2025 End: 38-74-1792Hxwecbwud Result EncounterCorey Davie DO Work Phone: noms External Department UnsolicitedStart: 04-17-2025 End: 00-24-6288Jhrvjdqjz Result EncounterCorey Davie DO Work Phone: no External Department UnsolicitedStart: 04-11-2025 End: 58-76-2484Lxboal flowsheetCorey Davie DO Work Phone: [facility] [place] OBGYNStart: 04-11-2025 End: 05-28-9212Gduiqh flowsheetCorey Davie DO Work Phone: [facility] [place] [facility]BGYNStart: 04-11-2025 End: 18-64-6843Mprkaf outpatient visit 15 minutesCorey Davie DO Work Phone: N[facility] [place] OBGYNComment on above:15 weeks gestation of ([facility]); Second trimester ([facility]); Acute nonintractable headache, unspecified headache type; BP check; Gestational hypertension, antepartum ([facility]); induced hypertension, antepartum ([facility])Start: 04-11-2025 End: 06-67-8817Ahpmooa encounter statusCorey Davie DO Work Phone: NO HealthcareStart: 04-11-2025 End: 31-88-5246qtcvxxcfbtJFDQF FAZIONot AvailableStart: 03-28-2025 End: 52-67-3374Qcrsmo flowsheetCorey Davie DO Work Phone: NO [facility]YNStart: 03-28-2025 End: 19-89-9853Kwvogz flowsheetCorey Davie DO Work Phone: no [place] OBGYNStart: 03-28-2025 End: 79-82-2438Icnwww outpatient visit 15 minutesCorey Davie DO Work Phone: [facility] [place] OBGYNComment on above:13 weeks gestation of ([facility]); Second trimester ([facility]); Acute nonintractable headache, unspecified headache typeStart: 03-28-2025 End: 37-96-9998jwnhfmdkjgYPPTO FAZIONot AvailableStart: 03-20-2025 End: 44-49-8183Fbjtdqnfc Result EncounterCorey Davie DO Work Phone: noms External Department UnsolicitedStart: 03-20-2025 End: 05-13-0090Mmwjwrjfq Result EncounterCorey Davie DO Work Phone: noms External Department UnsolicitedStart: 03-01-2025 End: 72-17-8275Scexrl outpatient visit 5 minutesFazio Nurse [facility]cp ObNOMS BCP OBStart: 03-01-2025 End: 37-78-7947jkiocifjczDEONI FAZIONot AvailableStart: 01-16-2025 End: 06-23-7538Hahwtshvk Result EncounterCorey Davie DO Work Phone: noms External Department UnsolicitedStart: 01-16-2025 End: 51-18-0893Dilpgeiml Result EncounterCorey Davie DO Work Phone: noms External Department UnsolicitedStart: 01-03-2025 End: 59-44-2091Wngpuby encounter procedureRobbie Lopez MD Work Phone: Steve JaneComment on above:Encounter for preprocedural laboratory examination (Primary Dx); Abnormal uterine bleedingStart: 01-03-2025 End: 66-62-2196Kfaijqi encounter statusRobbie Lopez MD Work Phone: [facility] Work Phone: Start: 01-03-2025 End: 07-70-3700tosvkwzyumFYPGTQ S [facility] Centertart: 01-03-2025 End: 35-74-4692Ltaixbycv for preprocedural laboratory examinationROBBIE Tap[facility] Centertart: 12-18-2024 End: 26-26-9514Isbcqgzj Result EncounterCorey Davie DO Work Phone: NOMS External Department UnsolicitedStart: 12-18-2024 End: 44-63-2644Fztyytls Result EncounterCorey Davie DO Work Phone: noMS External Department UnsolicitedStart: 12-18-2024 End: 92-59-0353Oijrrql encounter procedureCorey Davie DO Work Phone: noms BCP OBComment on above:Skin moleStart: 12-18-2024 End: 73-78-5451oplflfuswdOursx FazioFiSt. Vincent Hospital [facility]tr Work Phone: Start: 12-18-2024 End: 33-66-6718Hgqcnitr ReferredCorey Davie DO Work Phone: [facility] Path Spec [facility] HospStart: 12-17-2024 End: 65-66-1023Tpahhiplm Result EncounterCorey Davie DO Work Phone: NOMS External Department UnsolicitedStart: 12-17-2024 End: 02-94-2015Xpbvtidlp Result EncounterCorey Davie DO Work Phone: noms External Department UnsolicitedStart: 12-10-2024 End: 19-37-9775Gakikxd encounter procedureCorey Davie DO Work Phone: noms HealthcareStart: 12-10-2024 End: 97-90-6902Moadfymz preventive med est patient 18-39 yrsCorey Davie DO Work Phone: NOMS BCP OBComment on above:Well woman exam with routine gynecological examStart: 12-10-2024 End: 00-40-5025bdkavjguekVAGJC FAZIONot AvailableStart: 12-10-2024 End: 81-23-5620Hbatln flowsheetCorey Davie DO Work Phone: NOMS BCP OBStart: 12-10-2024 End: 15-71-2717Aqhzjr flowsheetCorey Davie DO Work Phone: NOMS BCP OBStart: 12-10-2024 End: 74-11-7506Wrftyfmes Result EncounterCorey Davie DO Work Phone: noms External Department UnsolicitedStart: 11-16-2024 End: 74-84-2907Dpsdrjkdu Result EncounterCorey Davie DO Work Phone: noms External Department UnsolicitedStart: 11-16-2024 End: 57-95-0033Tirbmdbjq Result EncounterCorey Davie DO Work Phone: NOMS External Department UnsolicitedStart: 11-12-2024 End: 72-20-0282Pedhgo outpatient visit 15 minutesCorey Davie DO Work Phone: noMS [facility] OBComment on above:Encounter for fertility planning; Acute cystitis without hematuria; PCOS (polycystic ovarian syndrome); Fallopian tube disorderStart: 11-12-2024 End: 30-27-5459Dfgvqu flowsheetCorey Davie DO Work Phone: NOMS BCP OBStart: 11-12-2024 End: 51-15-0960Kcftub flowsheetCorey Davie DO Work Phone: noms [facility] OBStart: 11-12-2024 End: 36-37-5105afyhlsteugSBNIE FAZIONot AvailableStart: 11-03-2024 End: 11-27-0746Gznkvdifa department patient visitCOMMUNCLEVELAND CLINIC [facility] HospitalStart: 10-18-2024 End: 54-45-8582Nbebbhbsc Result EncounterCorey Davie DO Work Phone: noms External Department UnsolicitedStart: 10-18-2024 End: 36-19-9036Jwgvddemj Result EncounterCorey Davie DO Work Phone: noms External Department UnsolicitedStart: 09-17-2024 End: 41-16-3601Wxxlchlaf Result EncounterCorey Davie DO Work Phone: noms External Department UnsolicitedStart: 09-17-2024 End: 12-51-8014Zpmjxrlns Result EncounterCorey Davie DO Work Phone: noms External Department UnsolicitedStart: 08-16-2024 End: 88-04-6954Zkhwuzkzr Result EncounterCorey Davie DO Work Phone: noms External Department UnsolicitedStart: 08-16-2024 End: 85-02-2580Ydeyamugt Result EncounterCorey Davie DO Work Phone: noms External Department UnsolicitedStart: 07-23-2024 End: 30-79-8899Zgzsml flowsheetCorey Davie DO Work Phone: noms BCP OBStart: 07-23-2024 End: 76-67-8697Bksrhm flowsheetCorey Davie DO Work Phone: NOCC BCP OBStart: 07-23-2024 End: 65-38-7329higtfkvizxAWXWW FAZIONot AvailableStart: 07-23-2024 End: 49-67-4129Uyxrsd outpatient visit 15 minutesCorey Davie DO Work Phone: noms [facility] OBComment on above:PCOS (polycystic ovarian syndrome); Encounter for fertility planningStart: 07-18-2024 End: 08-63-6332Yargmbuaw Result EncounterCorey Davie DO Work Phone: noms External Department UnsolicitedStart: 07-18-2024 End: 22-93-3237Amxqsejkq Result EncounterCorey Davie DO Work Phone: NOED External Department UnsolicitedStart: 06-11-2024 End: 98-40-0551Nmllck follow up visit related to original pxCorey Davie DO Work Phone: NOKI [facility] OBComment on above:Postoperative visit; S/P laparoscopic procedureStart: 06-11-2024 End: 37-31-3858Qetrwl flowsheetCorey Davie DO Work Phone: noms BCP OBStart: 06-11-2024 End: 14-40-4748Dkvvrn flowsheetCorey Davie DO Work Phone: NOWZ BCP OBStart: 06-01-2024 End: 72-48-5319Vpvrvldze Result EncounterCorey Davie DO Work Phone: NOEV External Department UnsolicitedStart: 06-01-2024 End: 35-07-3570Yvstuqdnq Result EncounterCorey Davie DO Work Phone: NOMS External Department UnsolicitedStart: 05-03-2024 End: 29-66-7541Feabpf outpatient visit 15 minutesCorey Davie DO Work Phone: NOEC [facility] OBComment on above:Pre-op examination; Pelvic pain in female; Fallopian tube disorderStart: 05-03-2024 End: 17-97-8774Lfhtolkfailun examination doneCorey Davie DO Work Phone: NOMS HealthcareStart: 04-25-2024 End: 88-91-8937Ddmsteuyr Result EncounterCorey Davie DO Work Phone: noms External Department UnsolicitedStart: 04-25-2024 End: 20-81-6220Jvkzvstid Result EncounterCorey Davie DO Work Phone: NONU External Department UnsolicitedStart: 04-24-2024 End: 20-34-9898Omttjqtgn Result EncounterCorey Davie DO Work Phone: noms External Department UnsolicitedStart: 04-24-2024 End: 54-73-7002Oardtiwkd Result EncounterCorey Davie DO Work Phone: NOXN External Department UnsolicitedStart: 04-10-2024 End: 29-44-9984Lgmozy flowsheetCorey Davie DO Work Phone: NOMS BCP OBStart: 04-10-2024 End: 21-93-0635Ixsqvn flowsheetCorey Davie DO Work Phone: NOMS BCP OBStart: 04-10-2024 End: 17-87-7353Fxtuke outpatient visit 15 minutesCorey Davie DO Work Phone: [facility] OBComment on above:Encounter for fertility planning; PCOS (polycystic ovarian syndrome); Pelvic pain in female; Abnormal uterine bleeding (AUB)Start: 03-13-2024 End: 26-62-9964Swngyl outpatient visit 15 minutesJames Fraire MD Work Phone: [facility] CardiologyComment on above:Heart palpitations (Primary Dx)Start: 03-12-2024 End: 16-96-8526Ujsvykhol encounterJennshayne Powell [facility]AREProMedica Physicians CardiologyStart: 02-22-2024 End: 90-03-9828Wurux abstractingScanning Provider ExternalProMedica Physicians CardiologyStart: 11-24-2023 End: 22-70-1364qukqsvupqlRnerfutlk [facility] Work Phone: Start: 11-24-2023 End: 93-21-3759Vwzfvce encounter procedureSloop [facility] Work Phone: Start: 10-11-2022 End: 21-39-7616yrpnbdnoumSuddvp Dymond Other [facility] [employer] Other Start: 83-87-3246Qptmww outpatient new 20 minutes Pinky SinghFPG Urgent [facility] Procedures DateProcedureProcedure DetailPerforming ClinicianStart: 41-28-0583Leeer dip stick/tablet rgnt non-auto w/o micrscpCorey Davie DO Work Phone: Start: 79-96-7820Zbgri dip stick/tablet rgnt non-auto w/o micrscpKristina Uyen GATHERING MACHINE FEEDER Work Phone: Start: 12-64-9643Bokkp dip stick/tablet rgnt non-auto w/o micrscpKristina Uyen GATHERING MACHINE FEEDER Work Phone: Start: 18-38-2987RCI, SERUM, OPEN SPINA BIFIDACorey Davie DO Work Phone: Start: 53-79-1474Uevqd dip stick/tablet rgnt non-auto w/o micrscpCorey Davie DO Work Phone: Start: 76-08-0350DTA TOTAL PROTEIN 24 HOUR URINECorey Davie DO Work Phone: Start: 80-62-3646Dsqcw count complete automatedNot In System Ref ProvStart: 96-13-9162IYT CBC WITH AUTO DIFFCorey Davie DO Work Phone: Start: 10-47-8547Qdxhi dip stick/tablet rgnt non-auto w/o micrscpCorey Davie DO Work Phone: Start: 90-63-4974Xuhfp dip stick/tablet rgnt non-auto w/o micrscpCorey Davie DO Work Phone: Start: 69-19-5063Zwwcdlbp Cathi Cruz MD Work Phone: Start: 67-42-8910Tpss scrn 1+ class nonchromoNot In System Ref ProvStart: 30-29-7654Viipeneeqd glycosylated f3iDolkitsl Provider ExternalStart: 93-47-0092Wxocmcdnz c antibodyNot In System Ref ProvStart: 47-81-0969WYJ 1&2 AB/AG SCREEN (P24 AG)Not In System Ref ProvStart: 03-20-2025 Iaad ia hepatitis b surface antigenNot In System Ref ProvStart: 03-20-2025 SYPHILIS TOTAL(UNKNOWN SYPHILIS STATUS)Not In System Ref ProvStart: 03-20-2025 TYPE AND SCREENNot In System Ref ProvStart: 56-02-0759RSY CBC WITH AUTO DIFF Caesar Davie DO Work Phone: Start: 03-01-2025 End: 76-09-6240Zubwc dip stick/tablet rgnt non-auto w/o micrscpCorey Davie DO Work Phone: Start: 64-07-4736ACN PROGESTERONECorey Davie DO Work Phone: Start: 14-87-1330DMBYDQXER REQUEST FOR LAB CORPCorey Davie DO Work Phone: Start: 05-98-0906QHL PROGESTERONECorey Davie DO Work Phone: Start: 09-97-3954WKI,APTIMA HPV,AGE GDLNCorey [employer] DO Work Phone: Start: 61-83-5757Oxdwzwrihrp observation [Identifier] in Cervix by Cyto stainCorey Davie DO Work Phone: Start: 38-25-2176QAW PROGESTERONECorey Davie DO Work Phone: Start: 54-98-8816FCF PROGESTERONECorey [employer] DO Work Phone: Start: 73-40-2551FGT PROGESTERONECorey Davie DO Work Phone: Start: 71-50-1907VJK PROGESTERONECorey Davie DO Work Phone: Start: 39-12-1518YGC PROGESTERONECorey Davie DO Work Phone: Start: 40-98-5947CJV CBC WITH AUTO DIFFCorey [employer] DO Work Phone: Start: 31-88-2159AC PELVIS W/ TRANSVAGINALCorey Davie DO Work Phone: Start: 33-92-9496YKM CBC WITH AUTO DIFFCorey [employer] DO Work Phone: Start: 21-95-9828Uwd routine ecg w/least 12 lds w/i&r James Fraire MD Work Phone: Start: 26-48-9149Uguil Strep (POC)Start: 11-23-2022 Microscopic observation [Identifier] in Cervix by Cyto stainScanning External Start: 98-82-0004Mrskfqrlibb observation [Identifier] in Cervix by Cyto stain Caesar [employer] DO Work Phone: Start: 39-71-2956Dcpu cerv/vag auto thin layer prep mnl screenAmy Zackary NIGHT CLERK Work Phone: Plan of Treatment DateCare ActivityDetailAuthorStart: 29-74-3861Gakxbp Vaccines (1 of 2)Zoster Vaccines (1 of 2)[facility] HospitalStart: 76-24-3185Mblqtlcqa for malignant neoplasm of cervixNOMS HealthcareStart: 21-44-0234Masfwhadm for malignant neoplasm of cervixNOMS HealthcareStart: 33-14-4657Zbljm BMI Screening Adult BMI ScreeningAdams County Hospital SystemStart: 07-57-4947Dmxrcii Screening Tobacco ScreeningCaroMont Regional Medical Center - Mount Hollytart: 12-16-2025 End: 65-00-3932Cqjpuct encounter procedureNOMS BCP OBStart: 97-93-1274Ybskvizit for malignant neoplasm of cervixPap SmearAdams County Hospital SystemStart: 66-35-6193Peixxwgjz for malignant neoplasm of cervixPap SmearNOMN Healthcare Start: 41-60-8185Aaxepbw ScreeningTobacco ScreeningAdams County Hospital SystemStart: 07-09-2025 End: 00-13-6407Nerovux encounter /18/2025 1:20 PM EST Routine LIANA HEAD [address] [place], [id number] Bethany Simon PA [address] [address] LIANA LAWSONGYNStart: 06-24-2025 End: 58-78-7836TSU panel - Blood by Automated countCBC Lab Routine Diabetes mellitus screening Expected: 06/24/2025 (Approximate), Expires: 06/24/2026[facility] Work Phone: comment on above:Expected: 06/24/2025 (Approximate), Expires: 06/24/2026Start: 06-24-2025 End: 82-93-3754Bxskespabof of glucose 1 hour after glucose challenge for glucose tolerance testGlucose tolerance, 1 hour Lab Routine Diabetes mellitus screening Expected: 06/24/2025 (Approximate), Expires: 06/24/2026NOMN HealthcareComment on above:Expected: 06/24/2025 (Approximate), Expires: 06/24/2026Start: 06-24-2025 End: 34-35-5184QD biophysical profile w non stress testUS biophysical profile w non stress test Imaging Routine 25 weeks gestation of ([facility]) H/O pre-eclampsia in prior , currently ([facility]) Chronic hypertension affecting ([facility]) Expected: 06/24/2025 (Approximate), Expires: 12/22/2025NOMS HealthcareComment on above: Expected: 06/24/2025 (Approximate), Expires: 12/22/2025Start: 06-24-2025 End: 40-92-3850AK for pregnancyUS OB follow up transabdominal approach Imaging Routine H/O pre-eclampsia in prior , currently ([facility]) Chronic hypertension affecting ([facility]) Expected: 06/24/2025, Expi res: 10/22/2025NOMN HealthcareComment on above:Expected: 06/24/2025, Expires: 10/22/2025Start: 06-24-2025 End: 66-44-3477Uokzrrk encounter procedureNOMS Aman OBGYNComment on above: ArrivedStart: 06-18-2025 End: 01-22-9838Sejscgemdnrx consultation with txjxamy7906/18/2025 2:00 PM EDT Telemedicine Maternal- Medicine at [facility] [address] [place] [phone] Yordy Cruz MD [address] [place] [address] [facility] at [facility] Systemtart: 06-18-2025 End: 88-92-7026Plmowaj encounter qqspxzdyv16/28/2025 8:00 AM EDT Appointment [facility] - Ultrasound [address] [place] [phone] [phone] [facility] - UltrasoundStart: 06-05-2025 End: 05-07-9273Qrygxne encounter procedureNOMS [place] OBGYNComment on above: ArrivedStart: 05-30-2025 End: 36-53-2074Feqwvrt encounter procedureNOMS Aman OBGYNComment on above: ArrivedStart: 05-25-2025 End: 96-09-8368Dpets fetoprotein, maternalAlpha fetoprotein, maternal Lab Routine Need for maternal serum alpha-protein (MSAFP) screening ([facility]) Expected: 05/25/2025 (Approximate), Expires: 05/25/2025NOMS HealthcareComment on above:Expected: 05/25/2025 (Approximate), Expires: 05/25/2025Start: 05-23-2025 End: 14-11-3491Exrchwb encounter krfrixxmt17/02/2025 2:30 PM EDT Routine LIANA HEAD [address] [place], [id number] Rody Qiu, GATHERING MACHINE FEEDER [address] [place] [phone] LIANA LAWSONGYNStart: 05-20-2025 End: 52-94-9998GO MFM with or without consultUS MFM with or without consult Imaging Routine Hypertension affecting in second trimesterExpected: 05/20/2025 (Approximate), Expires: 04/19/2026[facility] Work Phone: comment on above:Expected: 05/20/2025 (Approximate), Expires: 04/19/2026Start: 05-17-2025 End: 79-57-6357JG MFM with or without consultUS MFM with or without consult Imaging Routine 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 Severe obesity due to excess calories affecting , antepartum ([facility]) Hypertension affecting in second trimester Expected: 05/17/2025, Expires: 05/17/2026[facility] Work Phone: Comment on above:Expected: 05/17/2025, Expires: 05/17/2026Start: 05-17-2025 End: 51-93-2937Bzonevm encounter procedureProSumma Health [facility] US ImagingStart: 04-25-2025 End: 92-85-2324Lvepflc encounter procedureNOKindred Hospital at Morris OBGYNComment on above: ArrivedStart: 20-35-9064ISFFG-19 Vaccine ( season)COVID-19 Vaccine ()NOMS HealthcareStart: 82-25-9737Mdsilxtkq vaccinationNOMS HealthcareStart: 04-11-2025 End: 47-46-7337Psfwhel aminotransferase [Enzymatic activity/volume] in Serum or PlasmaALT Lab Routine Gestational hypertension, antepartum ([facility]-HCC) induced hypertension, antepartum (HHS-HCC) Expected: 04/11/2025 (Approximate), Expires: 04/11/2026NOMN HealthcareComment on above:Expected: 04/11/2025 (Approximate), Expires: 04/11/2026Start: 04-11-2025 End: 64-91-7940Zgzddknet aminotransferase [Enzymatic activity/volume] in Serum or PlasmaAST Lab Routine Gestational hypertension, antepartum (HHS-HCC) induced hypertension, antepartum (HHS-HCC) Expected: 04/11/2025 (Approximate), Expires: 04/11/2026NOMN HealthcareComment on above:Expected: 04/11/2025 (Approximate), Expires: 04/11/2026Start: 04-11-2025 End: 52-00-9797BQW W Auto Differential panel - BloodCBC and differential Lab Routine Gestational hypertension, antepartum (HHS-HCC) induced hy pertension, antepartum (HHS-HCC) Expected: 04/11/2025 (Approximate), Expires: 04/11/2026[facility] HealthcareComment on above:Expected: 04/11/2025 (Approximate), Expires: 04/11/2026Start: 04-11-2025 End: 56-48-5800Xjonndhees [Mass/volume] in Serum or PlasmaCreatinine Lab Routine Gestational hypertension, antepartum (HHS-HCC) induced hypertension, antepartum (HHS-HCC) Expected: 04/11/2025 (Approximate), Expires: 04/11/2026[facility] Vaprema Work Phone: comment on above:Expected: 04/11/2025 (Approximate), Expires: 04/11/2026Start: 04-11-2025 End: 61-50-8807Meofcvf dehydrogenase [Enzymatic activity/volume] in Serum or Plasma by Lactate to pyruvate reactionLactate dehydrogenase Lab Routine Gestational hypertension, antepartum (HHS-HCC) induced hypertension, antepartum (HHS-HCC) Expected: 04/11/2025, Expires: 04/11/2026[facility] Comment on above:Expected: 04/11/2025, Expires: 04/11/2026Start: 04-11-2025 End: 98-67-5096Caxdzso, urine, 24 hourProtein, urine, 24 hour Lab Routine Gestational hypertension, antepartum (HHS-HCC) induced hypertension, antepartum (HHS-HCC) Expected: 04/11/2025 (Approximate), Expires: 04/11/2026[facility] HealthcareComment on above:Expected: 04/11/2025 (Approximate), Expires: 04/11/2026Start: 04-11-2025 End: 94-16-0865Dx and pttPt and ptt Lab Routine Gestational hypertension, antepartum (HHS-HCC) induced hypertension, antepartum (HHS-HCC) Expected: 04/11/2025, Expires: 04/11/2026[facility] HealthcareComment on above: Expected: 04/11/2025, Expires: 04/11/2026Start: 04-11-2025 End: 74-35-5389Antin [Mass/volume] in Serum or PlasmaUric acid Lab Routine Gestational hypertension, antepartum (HHS-HCC) induced hypertension, antepartum (HHS-HCC) Expected: 04/11/2025 (Approximate), Expires: 04/11/2026[facility] HealthcareComment on above:Expected: 04/11/2025 (Approximate), Expires: 04/11/2026Start: 04-11-2025 End: 33-73-6297Qnoz nitrogen [Mass/volume] in Serum or PlasmaBUN Lab Routine Gestational hypertension, antepartum (HHS-HCC) induced hypertension, antepartum ([facility]) Expected: 04/11/2025, Expires: 04/11/2026[facility] Healthcare Comment on above:Expected: 04/11/2025, Expires: 04/11/2026Start: 04-11-2025 End: 08-02-9733Hwgamkg encounter procedureNOMS Aman OBGYNComment on above: ArrivedStart: 03-28-2025 End: 32-43-5195Vcnuaks encounter procedureNOMS BCP OBComment on above:Arrived Start: 23-97-4155Soyaf BMI ScreeningAdult BMI ScreeningAdams County Hospital System Start: 27-08-0130Mxsnlou ScreeningTobacco ScreeningCaroMont Regional Medical Center - Mount Hollytart: 03-01-2025 End: 11-61-3514MWG/RhABO/Rh Lab Routine Missed menses , unspecified gestational age ([facility]) Expected: 03/01/2025 (Approximate), Expires: 03/01/2026N[facility] HealthcareComment on above:Expected: 03/01/2025 (Approximate), Expires: 03/01/2026Start: 03-01-2025 End: 17-05-4909Wrxyg type and Indirect antibody screen panel - BloodType and screen Lab Routine Missed menses , unspecified gestational age ([facility]) Expected: 03/01/2025 (Approximate), Expires: 03/01/2026[facility] Healthcare Work Phone: comment on above:Expected: 03/01/2025 (Approximate), Expires: 03/01/2026Start: 03-01-2025 End: 72-33-0534Euzfv of abuse panel - Urine by Screen methodRapid drug screen, urine Lab Routine , unspecified gestational age ([facility]) Encounter for supervision of normal first in first trimester ([facility]) Expected: 03/01/2025 (Approximate), Expires: 03/01/2026[facility] HealthcareComment on above: Expected: 03/01/2025 (Approximate), Expires: 03/01/2026Start: 02-03-2025 End: 12-98-3867Omvhbwctthnoypuqjs ( test) [Presence] in UrinePOCT , urine manually resulted Point of Care Testing Routine Encounter for preprocedural laboratory examination Expected: 02/03/2025 (Approximate), Expires: 04/05/2025[facility] Work Phone: Comment on above:Expected: 02/03/2025 (Approximate), Expires: 04/05/2025Start: 02-03-2025 End: 01-53-2474NvfhelowcanbndjJjvczhnirbywbym Procedures Routine Abnormal uterine bleeding Expected: 02/03/2025 (Approximate), Expires: 01/03/2026[facility] Service Area Work Phone: Comment on above:Expected: 02/03/2025 (Approximate), Expires: 01/03/2026Start: 02-03-2025 End: 14-91-3770NE.doppler Uterus and Fallopian tubes W saline IUUS sonohysterogram Imaging Routine Abnormal uterine bleeding Expected: 02/03/2025 (Approximate), Expires: 01/03/2026[facility] Work Phone: Comment on above:Expected: 02/03/2025 (Approximate), Expires: 01/03/2026Start: 12-18-2024 End: 50-16-6668Pibrwya encounter ldrhcigwu15/29/2025 1:30 PM EDT Procedure Visit [facility] [address] [place] [phone] Caesar Broderick, DO [address] [place] [address] N[facility] BCP OBStart: 51-80-6811MztncjvzmBlanchard Valley Health Systemtart: 12-10-2024 End: 32-60-4403Uyaqvoi encounter procedureNOMS BCP OBComment on above:Arrived Start: 11-12-2024 End: 59-58-3063Nyekfmm encounter procedureNOMS BCP OBComment on above:Arrived Start: 07-23-2024 End: 53-33-3085Vsgddyb encounter vpocvpjyh15/02/2024 1:00 PM EST Office Visit [facility] [address] [place] [address] Caesar Broderick, DO [address] [place] [address] [place] [address] [facility] BCP OBStart: 06-11-2024 End: 58-02-7884Nuuljak encounter fxukabbbg56/21/2024 2:20 PM EDT Office Visit [facility] [address] [place] [address] Caesar Broderick, DO [address] [place] [address] [place] [address] ArrivedNOMS BCP OBComment on above:ArrivedStart: 06-01-2024 End: 57-72-6703Objzqcj encounter qmsiugpzz32/11/2024 8:30 AM EDT Procedure Visit [facility] EXT DEP Caesar Broderick, DO [address] [place] [address] [place] [address] NOMS EXT DEPStart: 05-03-2024 End: 77-82-3899Pwquteu encounter addfnkaem96/12/2024 11:40 AM EDT Consult [facility] [address] [place] [phone] Caesar Broderick, DO [address] [place] [address] [place] [address] [facility]OM[facility] BCP OBStart: 15-16-4503JUELK-19 Vaccine ( season)COVID-19 Vaccine ( season)[facility] Start: 08-95-0386Fdtsbzsjd vaccinationNOMN HealthcareStart: 04-10-2024 End: 57-82-4044Ykxvuvgioqqcp hormone (AMH)Antimullerian hormone (AMH) Lab Routine PCOS (polycystic ovarian syndrome) Expected: 04/10/2024 (Approximate), Expires: 04/10/2025N[facility]S HealthcareComment on above:Expected: 04/10/2024 (Approximate), Expires: 04/10/2025Start: 04-10-2024 End: 35-93-7725SZJBKRWJ Lab Routine PCOS (polycystic ovarian syndrome) Expected: 04/10/2024 (Approximate), Expires: 04/10/2025[facility] HealthcareComment on above: Expected: 04/10/2024 (Approximate), Expires: 04/10/2025Start: 04-10-2024 End: 66-03-7526QL for pregnancyUS PELVIS-TRANSVAG IF INDICATED Imaging Routine PCOS (polycystic ovarian syndrome) Pelvic pain in female Expected: 04/10/2024 (Approximate), Expires: 04/10/2025NO HealthcareComment on above:Expected: 04/10/2024 (Approximate), Expires: 04/10/2025Start: 04-10-2024 End: 93-41-1192Wyykgkf encounter /20/2024 9:10 AM EDT Office Visit [facility] OB [address] [place] [address] Caesar Broderick, [address] [place] [address] [facility] OBComment on above:ArrivedStart: 03-13-2024 End: 80-54-7899Ixcmhoh encounter afgblwzoe86/23/2024 11:00 AM EDT Office Visit [facility] [address] [place] [phone] James Fraire MD [address] [facility] [id number] [facility] CardiologyStart: 44-00-8759Xiicc BMI ScreeningAdult BMI ScreeningProBlanchard Valley Health System [facility] SystemStart: 51-86-9060Hogolbj ScreeningTobacco ScreeningProBlanchard Valley Health [facility] SystemStart: 20-38-1455JVV Vaccines (1 - 3-dose SCDM series)HPV Vaccines (1 - 3-dose SCDM series)[facility] CenterStart: 59-65-6455MUkU/Tdap/Td Vaccines (1 - Tdap)DTaP/Tdap/Td Vaccines (1 - Tdap)[facility]: 52-36-2211Ydxmwyqxa for malignant neoplasm of cervixHPV/CotestUnPremier Health [facility]: 04-15-3750KGiD,Tdap and Td Vaccines (1 - Tdap) DTaP,Tdap and Td Vaccines (1 - Tdap)[facility] SystemStart: 2011 Hepatitis B Vaccines (1 of 3 - 19+ 3-dose series)Hepatitis B Vaccines (1 of 3 - 19+ 3-dose series)[facility]: 89-46-1221Zkcrp BMI Follow Up PlanAdult BMI Follow Up PlanCaroMont Regional Medical Center - Mount Hollytart: 2010 Hepatitis C screeningHepatitis C ScreeningMercy Health [facility] Start: 86-16-1832Czljkkt of varicella vaccinationVaricella Vaccines (1 of 2 - 13+ 2-dose series)[facility] HealthcareStart: 14-95-3994Sybmsgeib vaccinationVaricella Vaccines (1 of 2 - 13+ 2-dose series)[facility]: 54-91-5197Yxifjcrnes ScreeningDepression ScreeningProRegency Hospital Toledotart: 43-35-8632HWgY/Tdap/Td Vaccines (1 - Tdap)DTaP/Tdap/Td Vaccines (1 - Tdap)[facility] CenterStart: 07-73-9685PDO Vaccines (1 of 1 - Standard series)MMR Vaccines (1 of 1 - Standard series)[facility]: 34-95-6874EHS screeningHIV ScreeningUnPremier Health [facility] Hospital: 57-19-7235Mkzyx panelLipid PanelMemorial Health System: 44-21-0883Tbxgjz Adult PhysicalYearly Adult PhysicalUnMartin Memorial HospitalBacteria identified in Urine by CultureUrine culture Microbiology Routine Missed menses Ordered: 03/01/2025[facility] HealthcareComment on above:Ordered: 5CBC W Auto Differential panel - BloodCBC and differential Lab Routine PCOS (polycystic ovarian syndrome) Ordered: 04/10/2024[facility] HealthcareComment on above:Ordered: 04/10/2024BC W Auto Differential panel - BloodCBC and differential Lab Routine Missed menses , unspecified gestational age ([facility]) Ordered: 03/01/2025[facility] HealthcareComment on above:Ordered: 03/01/2025HLAMYDIA TRACHOMATIS (GENITO/STI)CHLAMYDIA TRACHOMATIS (GENITO/STI) Lab Routine Screen for STD (sexually transmitted disease) Ordered: 04/25/2025[facility] HealthcareComment on above:Ordered: 04/25/2025 End: 56-82-9516Stayvbqtcr, urine, 24 hourCreatinine, urine, 24 hour Lab Routine Chronic hypertension affecting 20 weeks gestation of 1 Occurrences starting 05/17/2025 until 05/17/2026ProCitizens Baptist Health SystemComment on above:1 Occurrences starting 05/17/2025 until 05/17/2026ytology Cervical or vaginal smear or scraping studyPap Smear Pathology and Cytology Routine Well woman exam with routine gynecological exam Ordered: 12/10/2024[facility] Work Phone: comment on above:Ordered: 12/10/2024DHEA-sulfateDHEA- sulfate Lab Routine PCOS (polycystic ovarian syndrome) Ordered: 04/10/2024[facility] HealthcareComment on above:Ordered: 04/10/2024Follicle stimulating hormone Follicle stimulating hormone Lab Routine PCOS (polycystic ovarian syndrome) Ordered: 04/10/2024[facility] HealthcareComment on above:Ordered: 04/10/2024hCG, quantitative, pregnancyhCG, quantitative, Lab Routine PCOS (polycystic ovarian syndrome) Ordered: 04/10/2024[facility] Work Phone: comment on above:Ordered: 04/10/2024Hemoglobin A1c/Hemoglobin.total in BloodHemoglobin A1c Lab Routine Pelvic pain in female Abnormal uterine bleeding (AUB) Ordered: 04/10/2024[facility] HealthcareComment on above:Ordered: 04/10/2024Hemoglobin A1c/Hemoglobin.total in BloodHemoglobin A1c Lab Routine Missed menses , unspecified gestational age ([facility]) Ordered: 03/01/2025[facility] HealthcareComment on above:Ordered: 03/01/2025Hepatitis B virus surface Ag [Presence] in Serum or Plasma by ImmunoassayHepatitis B surface antigen Lab Routine Missed menses , unspecified gestational age ([facility]-HCC) Ordered: 03/01/2025[facility] HealthcareComment on above:Ordered: 03/01/2025Hepatitis C virus Ab [Presence] in Serum or Plasma by Immunoassay Hepatitis C antibody Lab Routine Missed menses , unspecified gestational age ([facility]-HCC) Ordered: 03/01/2025[facility] HealthcareComment on above: Ordered: 03/01/2025HIV-1/HIV-2 antigen/antibody combination immunoassayHIV-1 and HIV-2 antibodies Lab Routine Missed menses , unspecified gestational age ([facility]-HCC) Ordered: 03/01/2025[facility] HealthcareComment on above:Ordered: 03/01/2025Human papilloma virus DNA [Presence] in Unspecified specimen by Probe with amplificationHPV DNA probe, amplified Microbiology Routine Well woman exam with routine gynecological exam Ordered: 12/10/2024[facility] HealthcareComment on above:Ordered: 12/10/2024Luteinizing hormoneLuteinizing hormone Lab Routine PCOS (polycystic ovarian syndrome) Ordered: 04/10/2024[facility] HealthcareComment on above:Ordered: 04/10/2024 End: 10-25-8997Rrigsddyoki peptide B [Mass/volume] in BloodB-type natriuretic peptide Lab Routine Chronic hypertension affecting 20 weeks gestation of 1 Occurrences starting 05/17/2025 until 05/17/2026[facility] Work Phone: Comment on above:1 Occurrences starting 05/17/2025 until 05/17/2026Natriuretic peptide B [Mass/volume] in BloodB-type natriuretic peptide Lab Routine Chronic hypertension affecting 20 weeks gestation of 05/17/2025 9:54 AM [facility] HospitalNeisseria gonorrhoeae DNA [Presence] in Unspecified specimen by [facility] with probe detectionNeisseria gonorrhea DNA probe, direct Lab Routine Screen for STD (sexually transmitted disease) Ordered: 04/25/2025[facility] HealthcareComment on above:Ordered: 04/25/2025 End: 25-58-5089Evabmay, urine, 24 hourProtein, urine, 24 hour Lab Routine Chronic hypertension affecting 20 weeks gestation of 1 Occurrences starting 05/17/2025 until 05/17/2026[facility] SystemComment on above:1 Occurrences starting 05/17/2025 until 05/17/2026Reagin Ab [Presence] in Serum by RPRRPR Lab Routine Missed menses , unspecified gestational age ([facility]) Ordered: 03/01/2025[facility] CenterComment on above:Ordered: 03/01/2025Rubella antibody, IgGRubella antibody, IgG Lab Routine Missed menses , unspecified gestational age ([facility]) Ordered: 03/01/2025[facility] HealthcareComment on above:Ordered: 03/01/2025SURESWAB(R) ADVANCED VAGINITIS PLUS, TMASURESWAB(R) ADVANCED VAGINITIS PLUS, TMA Pathology and Cytology Routine Screen for STD (sexually transmitted disease) Ordered: 04/25/2025[facility] Work Phone: comment on above:Ordered: 04/25/2025Thyrotropin [Units/volume] in Serum or PlasmaTSH Lab Routine PCOS (polycystic ovarian syndrome) Ordered: 04/10/2024[facility] CenterComment on above:Ordered: 04/10/2024 Thyroxine (T4) free [Mass/volume] in Serum or PlasmaT4, free Lab Routine PCOS (polycystic ovarian syndrome) Ordered: 04/10/2024[facility] CenterComment on above:Ordered: 04/10/2024 Payers DatePayer CategoryPayerPolmercy medical [facility] [id number]-pay2023Medicaid [id number] [id number] 2..[id number] 2.0.1.339122.3.57[id number] 2.0.1.230337.3.579.2.450168-67-4441Zcyyckr [id number] 2.0.1.397803.3.57[id number] 2.16840.1.420052.3.57[id number] 2.16840.1.812931.3.57[id number] 2.16840.1.808155.3.57[id number] 2.16840.1.634843.3.57[id number] 2..1.604712.3.57[id number] 2..1.179103.3.57[id number] 2.0.1.562521.3.57[id number] 2..1.566010.3.57[id number] 2..1.719569.3.57[id number] 2..1.919467.3.57[id number] 2.840.1.738856.3.57[id number] 2.0.1.227941.3.57[id number] 2.16840.1.361035.3.57[id number] 2.840.1.449885.3.57[id number] 2.16.840.1.532849.3.57[id number] 2.16.840.1.341634.3.57[id number] 2.16.840.1.23[id number] 2.16.840.1.006235.3.579.2.531 Social History DateTypeDetailFacilityStart: 02-22-2024 End: 18-96-8361Ogr Assigned At [facility] [employer] Other Start: 11-85-6208Yqv Assigned At [facility] CenterTobacco smoking status NHISTobacco smoking consumption unknownNOMN HealthcareStart: 51-61-3118Bpg assigned at birthNot on fileProCitizens Baptist Eutechnyx SystemStart: 10-09-2022 End: 89-66-1876Hoyhxrz smoking status NHISNever smoked tobaccoProCitizens Baptist Eutechnyx SystemStart: 10-09-2022 End: 17-69-1672Ejhpaan use and exposureSmokeless tobacco non-userProCitizens Baptist Eutechnyx SystemStart: 02-22-2024 End: 22-67-8057Cjxdkjguv beverage intakeEx-drinker (finding)[facility] SystemStart: 02-22-2024 End: 40-04-6308Namvlze of Social functionProMediLouis Stokes [facility] SystemStart: 78-28-6726Hnogjd the past 12 months we worried whether our food would run out before we got money to buy more.Never TrueProBlanchard [facility] Health System [facility] HospitalLight-Based Technologies SystemStart: 09-30-2022 End: 93-20-6167EsuByjlta (finding)[facility] Systemtart: 48-03-3185Oejiucdpu beverage intakeLifetime non-drinker (finding)[facility] Work Phone: Start: 12-24-2024 End: 52-76-6394Iqngejaw to SARS-CoV-2 (event)Not sureUnMartin Memorial HospitalStart: 09-26-5479HlwrohhmaOLAI Healthcare Functional Status PxueMahhdvhcdoUactivFcysjakf50-47-5564Xjctgep Health Questionnaire 2 item (PHQ- 2) [Reported][facility] Medical CenterFwuucwkbne42-06-0203Cyyqnsm Health Questionnaire 2 item (PHQ- 2) [Reported][facility] Work Phone: [phone]plmnc - suicide severity rating scale screener - recent [C-SSRS][facility] Work Phone: Clinical Notes 10-11-2022 to 06-24-2025 Note Date & YawcKjijMyjbnvzg11-13-5841 History of Present illness Narrative* Karoline Casillas, [...] (polycystic ovarian syndrome) 07/30/2024 induced hypertension, antepartum ([facility]) 04/25/2025 Vitamin D deficiency 05/23/2025 H/O pre-eclampsia in prior , currently ([facility]) 05/23/2025 Resolved Ambulatory Problems Diagnosis [...] nursing note reviewed. Exam conducted with a trim carpenter present. Vitals: Estimated body mass index is 43.33 kg/m as calculated from the following: Height as of 06/11/24: 5' 8 . Weight as of this encounter: 285 lb. BP: 150/86 Patient's last menstrual period was 12/26/2024. Assessment/Plan ICD-10-CM 1. Second trimester ([facility]) Z34.92 POCT urinalysis dipstick manually resulted 2. 25 weeks gestation of ([facility]) Z3A.25 labetalol (Normodyne) 100 MG tablet 3. H/O pre-eclampsia in prior , currently ([facility]) O09.299 labetalol (Normodyne)100 MG tablet 4. Vitamin D deficiency E55.9 5. Chronic hypertension affecting ([facility]) O10.919 labetalol (Normodyne) 100 MG tablet 6. [...] given for patient to get scheduled at [facility] and [facility] Scheduling. Patient to return to clinic in 2 weeks for routine OB appointment. Patient has had ER visits since last appointment due to headaches and elevated BP. Patient to have no lifting and to rest while off work. Documented by Karoline Casillas LPN on behalf of: Caesar Broderick DO documented in this encounterCrossroads Regional Medical CenterMaaqdgiubk55-12-8525 History of Present illness Narrative* Yordy Cruz [...] TESTS AND ULTRASOUND REPORTS: Referral records and [facility] chart were reviewed Pertinent Ultrasound findings [...] ultrasound, attempt completion in 4 weeks through [facility] serial growth ultrasounds every 4 weeks [...] patient is in complete care of her branch general manager. Patient does have ultrasound and office visit scheduled with us. Thank you for allowing me to participate in the care of Ellen Ramires. If there any questions please do not hesitate to contact us. Yordy Cruz MD Maternal- Medicine [facility] [address] [place] [address] This document was created with [employer] technology. Though I make every effort to review the dictation as it is transcribed, on occasion the spoken word can be misinterpreted by the technology leading to inappropriate words, phrases, or sentences. This note is addressed to the requesting provider as a consultation for clinical guidance. Specificmedical abbreviations are occasionally used and those are generally approved by the [place]?Board of?Obstetrics and?Gynecology?as well as?Rama tapia abbreviations. The above plan of care was based solely on the diagnoses for which a consultation was requested. ?More frequent testing may be indicated based on her other medical/obstetrical conditions. The management of other or medical conditions is beyond the scope of requested consultation and will c ontinue to be followed by the primary branch general manager or primary care provider. Note to patient: [...] opinion of the practitioner. documented in this encounterPaulding County Hospital10-[facility] History of Present illness Narrative* Rody [...] (polycystic ovarian syndrome) 07/30/2024 induced hypertension, antepartum ([facility]) 04/25/2025 Vitamin D deficiency 05/23/2025 H/O pre-eclampsia in prior , currently ([facility]) 05/23/2025 Resolved Ambulatory Problems Diagnosis [...] nursing note reviewed. Exam conducted with a trim carpenter present. Vitals: Estimated body mass index is 42.99 kg/m as calculated from the following: Height as of 06/11/24: 5' 8 . Weight as of this encounter: 282 lb 12 oz. BP: 130/76 Patient's last menstrual period was 12/26/2024. ASSESSMENT & PLAN ICD-10-CM 1. Second trimester ([facility]) Z34.92 POCT urinalysis dipstick manually resulted 2. 23 weeks gestation of ([facility]) Z3A.23 Return OB: Patient presents today for [...] 06/01/2024 WISDOM TOOTH EXTRACTION documented in this encounterCrossroads Regional Medical CenterUplhzrujvv41-82-2057 History of Present illness Narrative* Rody Qiu [...] (polycystic ovarian syndrome) 07/30/2024 induced hypertension, antepartum ([facility]) 04/25/2025 Vitamin D deficiency 05/23/2025 H/O pre-eclampsia in prior , currently ([facility]) 05/23/2025 Resolved Ambulatory Problems Diagnosis [...] nursing note reviewed. Exam conducted with a trim carpenter present. Vitals: Estimated body mass index is 43.03 kg/m as calculated from the following: Height as of 06/11/24: 5' 8 . Weight as of 05/23/25: 283 lb. BP: Patient's last menstrual period was 12/26/2024. ASSESSMENT & PLAN ICD-10-CM 1. Second trimester ([facility]) Z34.92 2. 22 weeks gestation of ([facility]) Z3A.22 POCT urinalysis dipstick manually [...] of: Rody Qiu NP documented in this encounterCrossroads Regional Medical CenterWfyhszfbud62-40-5976 History of Present illness Narrative* Rody Qiu [...] (polycystic ovarian syndrome) 07/30/2024 induced hypertension, antepartum ([facility]) 04/25/2025 Vitamin D deficiency 05/23/2025 H/O pre-eclampsia in prior , currently ([facility]) 05/23/2025 Resolved Ambulatory Problems Diagnosis [...] nursing note reviewed. Exam conducted with a trim carpenter present. Vitals: Estimated body mass index is 43.03 kg/m as calculated from the following: Height as of 06/11/24: 5' 8 . Weight as of this encounter: 283 lb. BP: 142/82 Patient's last menstrual period was 12/26/2024. ASSESSMENT & PLAN ICD-10-CM 1. Second trimester ([facility]) Z34.92 POCT urinalysis dipstick manually resulted 2. 21 weeks gestation of ([facility]) Z3A.21 3. induced hypertension, antepartum ([facility]) O13.9 4. Vitamin D deficiency E55.9 5. H/O pre-eclampsia in prior , currently ([facility]) O09.299 Return OB: Patient presents today for [...] of: Rody Qiu NP documented in this encounterCrossroads Regional Medical CenterXutuphygwk25-24-5369 History of Present illness Narrative* Bethany Lundy [...] No Have you been seen here at [facility] in a previous ? No Recent ER visits or hospitalizations? Yes, for slicing thumb on mandolin Bring blood sugar log or meter with you today? (Please bring them with you for every visit at [facility]) N/A Flu vaccine (Jun-October)? N/A Any [...] TESTS AND ULTRASOUND REPORTS: Referral records and [facility] chart were reviewed Pertinent Ultrasound findings [...] recommended threshold of 160/110. Referenc e: PMID: [id number], 2021. Blood pressures do increase as progresses [...] preeclampsia prevention as is recommended by the [place] [employer] Gyne[employer] Committee Opinion No. 743. [...] patient is in complete care of her branch general manager. Patient does have ultrasound and office visit scheduled with us. Thank you for allowing me to participate in the care of Ellen Ramires. If there any questions please do not hesitate to contact us. Yordy Cruz MD Maternal- Medicine [address] [place] [address] This document was created with [employer] technology. Though I make every effort to review the dictation as it is transcribed, on occasion the spoken word can be misinterpreted by the technology leading to inappropriate words, phrases, or sentences. This note is addressed to the requesting provider as a consultation for clinical guidance. Specificmedical abbreviations are occasionally used and those are generally approved by the [place]?Board of?Obstetrics and?Gynecology?as well as?Rama tapia abbreviations. The above plan of care was based solely on the diagnoses for which a consultation was requested. ?More frequent testing may be indicated based on her other medical/obstetrical conditions. The management of other or medical conditions is beyond the scope of requested consultation and will c ontinue to be followed by the primary branch general manager or primary care provider. Note to patient: [...] Blood drawn for cell-free DNA testing per [facility] phlebotomy. Patient tolerated well. documented in this encounterPaulding County Hospital09-04-2025 History of Present illness Narrative* Rody [...] (polycystic ovarian syndrome) 07/30/2024 induced hypertension, antepartum ([facility]) 04/25/2025 Resolved Ambulatory Problems Diagnosis Date Noted [...] nursing note reviewed. Exam conducted with a trim carpenter present. Vitals: Estimated body mass index is 42.88 kg/m as calculated from the following: Height as of 06/11/24: 5' 8 . Weight as of this encounter: 282 lb. BP: 138/82 Patient's last menstrual period was 12/26/2024. ASSESSMENT & PLAN ICD-10-CM 1. Screening, , for anatomic survey ([facility]) Z36.89 CANCELED: US OB 14+ weeks anatomy scan 2. Second trimester ([facility]) Z34.92 POCT urinalysis dipstick manually resulted 3. 17 weeks gestation of ([facility]) Z3A.17 4. Screen for STD (sexually transmitted disease) Z11.3 SURESWAB(R) ADVANCED VAGINITIS PLUS, TMA CHLAMYDIA TRACHOMATIS (GENITO/STI) Neisseria gonorrhea DNA probe, direct 5. Need for maternal serum alpha-protein (MSAFP) screening ([facility]) Z36.1 Alpha fetoprotein, maternal Alpha fetoprotein, maternal 6. induced hypertension, antepartum ([facility]) O13.9 7. Vitamin D deficiency E55.9 Return [...] of: Caesar Broderick DO documented in this encounterCrossroads Regional Medical CenterHuvqsgrwup87-37-8678 History of Present illness Narrative* Karoline Casillas, GUEST SERVICES REPRESENTATIVE - 04/11/2025 10:30 AM EDT Reason for [...] nursing note reviewed. Exam conducted with a trim carpenter present. Vitals: Estimated body mass index is 42.63 kg/m as calculated from the following: Height as of 06/11/24: 5' 8 . Weight as of this encounter: 280 lb 6.4 oz. BP: 140/86 Patient's last menstrual period was 12/26/2024. ASSESSMENT & PLAN ICD-10-CM 1. 15 weeks gestation of ([facility]) Z3A.15 POCT urinalysis dipstick manually resulted 2. Second trimester ([facility]) Z34.92 POCT urinalysis dipstick manually resulted 3. Acute nonintractable headache, unspecified headache type R51.9 4. BP check Z01.30 Patient presents today for a routine obstetrics appointment. Patient is currently 15w1d with a Estimated Date of Delivery: 10/02/25. Patient is having persistent elevated HTN. Discussed patient being referred to [facility] for management and recommendations for Gestational HTN. Patient is agreeable with referral. Patient to be started on Labetalol 200mg BID. Patient given labs and 24 hour urine to have obtained for baseline testing. Patient aware that once lab results are obtained then referral will be completed, so then all results can be sent to [facility] at onetime. Patient to return to clinic in 4 weeks for routine OB appointment. Patient to reach out to office with any concerns/questions. Documented by Karoline Casillas LPN on behalf of: Caesar Broderick DO documented in this encounterCrossroads Regional Medical CenterEvuitsqcwq24-42-8950 History of Present illness Narrative* Karoline Casillas [...] nursing note reviewed. Exam conducted with a trim carpenter present. Vitals: Estimated body mass index is 42.29 kg/m as calculated from the following: Height as of 24: 5' 8 . Weight as of this encounter: 278 lb 1.9 oz. BP: 138/80 Patient's last menstrual period was 12/26/2024. ASSESSMENT & PLAN ICD-10-CM 1. 13 weeks gestation of ([facility]) Z3A.13 POCT urinalysis dipstick manually resulted 2. Second trimester ([facility]) Z34.92 POCT urinalysis dipstick manually resulted magnesium [...] or undercooked meat, and stay away from [facility]. Patient has been consulted regarding any [...] of: Caesar Broderick DO documented in this encounterCrossroads Regional Medical CenterEtbgxvisyz91-73-4671 History of Present illness Narrative* Melanie Almaraz [...] dipstick manually resulted , unspecified gestational age ([facility]) - Type and screen; Future - ABO/Rh; Future - CBC and differential - Hemoglobin A1c - RPR - Rubella antibody, IgG - Hepatitis B surface antigen - Hepatitis C antibody - HIV-1 and HIV-2 antibodies - Rapid drug screen, urine; Future Encounter for supervision of normal first in first trimester ([facility]) - Rapid drug screen, urine; Future 9 weeks gestation of ([facility]) Nurse Note: Pt uncertain of doing the [place] [employer] to one. Advised pt if she does to make sure both labs and [place] is done at the same time. PVU. Pt did state she had a Vit. D deficiency and has a h/o high blood pressure with G1. [employer]ani [employer] advised patient showed in dating [place] today [...] or undercooked meat, and stay away from [facility]. Patient has also been advised to [...] by: Melanie Almaraz MA documented in this encounterCrossroads Regional Medical CenterUcpjupkchk12-83-1789 History of Present illness Narrative* Robbie Lopez [...] bilateral tubal patency Saline Infused Sonography: None [employer] Pelvic Ultrasound: 2023 FINDINGS: UTERUS: Normal size [...] 10/2024 Thyroid profile includes TSH FT4 Order: [id number] Component Ref Range & Units 2 mo [...] -- -- -- 2.68 -- -labs done [id number] Relationship Status: Have you ever been ? 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 Tadalafil - 10mg as needed Injuries: No STD: No Please select all that are applicable: SA: Yes SA Results: Yes -Done at [facility] 2023- reports was told normal, no [...] family history on file. [facility] Work Phone: 1(963) 795-529105-15-2025 Instructions* Patient Instructions* Robbie Lopez MD - [...] Lopez 01/03/2025 11:05 AM documented [facility] Work Phone: 1(360) 854-591004-29-2025 History of Present illness Narrative* Kita Griggs [...] nursing note reviewed. Exam conducted with a trim carpenter present. Vitals: Estimated body mass index is [...] after allowing sufficient time to take affect. corn picker and scissors used to remove affected area. Placed in formalin and sent to pathology. Post-procedure instructions given. Follow Up: as needed Documented by Kita Griggs LPN on behalf of: Caesar Broderick DO documented in this encounterCrossroads Regional Medical [id number] History of Present illness Narrative* Melanie Almaraz [...] nursing note reviewed. Exam conducted with a trim carpenter present. Vitals: Estimated body mass index is [...] of: Caesar Broderick DO documented in this encounterCrossroads Regional Medical [id number] History of Present illness Narrative* Karoline Casillas [...] of: Caesar Broderick DO documented in this encounterCrossroads Regional Medical [id number] History of Present illness Narrative* Kita Griggs [...] nursing note reviewed. Exam conducted with a trim carpenter present. Vitals: Estimated body mass index is [...] of: Caesar Broderick DO documented in this encounterCrossroads Regional Medical CenterUdhzcoaius76-45-0902 History of Present illness Narrative* Karoline Casillas [...] nursing note reviewed. Exam conducted with a trim carpenter present. Vitals: Estimated body mass index is [...] of: Caesar Broderick DO documented in this encounterCrossroads Regional Medical CenterWknhxfybea10-88-3652 History of Present illness Narrative* [employer] - 05/03/2024 11:40 AM EDT Reason for Appointment: Patient ID: Ellen Ramires is a 34 y.o. female who presents for Pre-op Visit Patient presents today for Pre Op appointment. Patient is scheduled to undergo Diagnostic Laparoscopy, possible FLAKITO, possible FOE, possible BSO, possible Chromopertubation on 06/01/[address] Broderick at [facility]. MEDICATIONS Current Outpatient Medications Medication Instructions D-400 [...] nursing note reviewed. Exam conducted with a trim carpenter present. Vitals: There is no height or [...] reviewed, and patient is to proceed to [facility] OR. Follow Up: Patient is to follow up between 1-2 weeks post operative to assess proper healing and recovery fromprocedure. Documented by Karoline Casillas LPN on behalf of: Caesar Broderick DO documented in this encounterCrossroads Regional Medical [id number] History of Present illness Narrative* Kita Griggs [...] nursing note reviewed. Exam conducted with a trim carpenter present. 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 PCP: [facility] Jazmín Referring Physician: Sabiha Aviles [place] [address] documented in this encounterPaul[facility]07[facility]24 Miscellaneous Notes* Telephone Encounter - Sheyla Powell CMA - 03/12/2024 2:47 PM EDT Left message for patient to remind them to bring their most current medication list with them to their appointment. documented in this encounterPaulding [facility]07-22-2024 Telephone encounter Note* Telephone Encounter - Sheyla Powell CMA - 03/12/2024 2:47 PM EDT Left message for patient to remind them to bring their most current medication list with them to their appointment. [facility]02[facility] Evaluation note* Encounter Date Diagnosis Assessment [...] the onset of your symptoms of COVID [employer] Other Chief complaint+Reason for visit Narrative* Chief Complaint sinus pressure, coug h Reason for Visit Contact with and (matt spected) exposure to covid-19 Sore throat Sinusitis [facility] Work Phone: Evaluation note* Diagnosis Onset Date Resolution Status Contact with and (suspected) exposure to covid-19 acuteSore throatacuteSinusitisnoneactive [facility] Work Phone: Evaluation note* Diagnosis Postoperative visit S/P laparoscopic procedure Other postprocedural status [facility]* Diagnosis PCOS (polycystic ovarian syndrome) Polycystic ovaries Encounter for fertility planning documented in this [facility]* Diagnosis Pre-op examination Pelvic pain in female Unspecified symptom associated with female genital organs Fallopian tube disorder Unspecified noninflammatory disorder of ovary, fallopian tube, and broad ligament documented in this [facility]* Diagnosis Encounter for fertility planning PCOS (polycystic ovarian syndrome) Polycystic ovaries Pelvic pain in female Unspecified symptom associated with female genital organs Abnormal uterine bleeding (AUB) documented in [facility]* Diagnosis Heart palpitations- Primary Palpitations [facility] Diagnosis Encounter for fertility planning Acute cystitis without hematuria PCOS (polycystic ovarian syndrome) Polycystic ovaries Fallopian tube disorder Unspecified noninflammatory disorder of ovary, fallopian tube, and broad ligament documented in this [facility]* Diagnosis Well woman exam with routine gynecological exam Routine gynecological examination documented in this [facility]* Diagnosis Skin mole documented in this encounter [facility] HealthcareEvaluation noteNo assessment information availablePomerene Hospital Work Phone: Evaluation note* Diagnosis Encounter for preprocedural laboratory examination- Primary Abnormal uterine bleeding Unspecified disorder of menstruation and other abnormal bleeding from female genital tract documented in this [facility] Work Phone: Evaluation note* Diagnosis Amenorrhea Absence of menstruation Missed menses , unspecified gestational age ([facility]) Encounter for supervision of normal first in first trimester ([facility]) 9 weeks gestation of ([facility]) Vitamin D deficiency History of hypertension Personal history of other diseases of circulatory system documented [facility]* Diagnosis 13 weeks gestation of ([facility]) Second trimester ([facility]) state, incidental Acute nonintractable headache, unspecified headache type documented in this [facility]* Diagnosis 15 weeks gestation of ([facility]) Second trimester ([facility]) state, incidental Acute nonintractable headache, unspecified headache type BP check Screening for hypertension Gestational hypertension, antepartum ([facility]) induced hypertension, antepartum ([facility]) Transient hypertension of , antepartum [facility]* Diagnosis Hypertension affecting in second trimester- Primary [facility] Diagnosis Screening, , for anatomic survey ([facility]) Encounter for anatomic survey Second trimester ([facility]) state, incidental 17 weeks gestation of ([facility]) Screen for STD (sexually transmitted disease) Screening examination for venereal disease Need for maternal serum alpha-protein (MSAFP) screening ([facility]) induced hypertension, antepartum ([facility]) Transient hypertension of , antepartum Vitamin D deficiency documented [facility]* Diagnosis Chronic 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 Severe obesity due to excess calories affecting , antepartum ([facility]) 20 weeks gestation of [facility] encounter [facility]* 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 Chronic hypertension affecting Severe obesity due to excess calories affecting , antepartum ([facility]) Hypertension affecting in second trimester documented [facility] encounter [facility]* 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 Chronic hypertension affecting Severe obesity due to excess calories affecting , antepartum ([facility]) Hypertension affecting in second trimester documented [facility] Diagnosis Chronic hypertension affecting ([facility])- Primary Second trimester ([facility]) state, incidental 22 weeks gestation of ([facility]) documented in this encounter [facility]* Diagnosis Second trimester ([facility]) state, incidental 21 weeks gestation of ([facility]) induced hypertension, antepartum ([facility]) Transient hypertension of , antepartum Vitamin D deficiency H/O pre-eclampsia in prior , currently ([facility]) documented in this encounter [facility]* Diagnosis Second trimester ([facility]) state, incidental 23 weeks gestation of ([facility]) documented in this encounter [facility]* Diagnosis Chronic hypertension affecting - Primary 20 weeks gestation of Anxiety disorder affecting , 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 Severe obesity due to excess calories affecting , antepartum ([facility]) documented [facility] Diagnosis Second trimester ([facility]) state, incidental 25 weeks gestation of ([facility]) H/O pre-eclampsia in prior , currently ([facility]) Vitamin D deficiency Chronic hypertension affecting ([facility]) Diabetes mellitus screening Screening for diabetes mellitus documented in this encounter [facility] HealthcareInstructionsNot on filedocumented in this encounterAdams County Hospital SystemInstructionsNot on filedocumented in this encounterAdams County Hospital SystemInstructionsNot on filedocumented in this encounterAdams County Hospital SystemInstructionsNot on filedocumented in this encounterAdams [facility] InstructionsNot on filedocumented in this [facility] InstructionsNot on filedocumented in this [facility] InstructionsNot on filedocumented in this encounterAd[facility] InstructionsNot on filedocumented in this encounterAd[facility] InstructionsNot on filedocumented in this [facility] Family History No Family [...] PALPITATIONS SCHED W/ PT LABS HM AT [facility] AT PCPSpecialtyDiagnoses / ProceduresReferred By Contact Referred To ContactCardiology Diagnoses Heart palpitations Sabiha Aviles, KRISTINE-NIGHT CLERK [address] [place] [address] [facility] [address] [place] [address] Referral IDStatusReasonStart DateExpiration DateVisits RequestedVisits [id number] Review Specialty Services Required /[id number]syx ExamReason CommentsMole removalReasonCommentsInfertilityReasonCommentsAmenorrheaReason CommentsRoutine VisitReasonCommentsgHTNPCOS Care Teams [...] DateEnd Date Kromer, Judy PCP - [facility]7/09/14Team MemberRelationshipSpecialtyStart DateEnd Date Kromer, Judy PCP - [facility]7/09/14Team MemberRelationshipSpecialtyStart DateEnd Date Kromer, Judy PCP - [facility]7/09/14Team MemberRelationshipSpecialtyStart DateEnd Date Kromer, Judy PCP - [facility]7/09/14Team MemberRelationshipSpecialtyStart DateEnd Date Kromer, Judy PCP - [facility]7/09/14Team MemberRelationshipSpecialtyStart DateEnd Date Kromer, Judy PCP - [facility]7/09/14Team MemberRelationshipSpecialtyStart DateEnd Date Kromer, Judy PCP - [facility]7/09/14Team MemberRelationshipSpecialtyStart DateEnd Date [address] [place] PCP - GeneralFamily Medicine11/12/22Team MemberRelationshipSpecialtyStart DateEnd Date [facility] [address] [place], [place] PCP - GeneralFamily Medicine11/12/22Team MemberRelationshipSpecialtyStart DateEnd Date [facility] [address] [place] PCP - GeneralFamily Medicine11/12/22Team MemberRelationshipSpecialtyStart DateEnd Date Kromer, Judy PCP - [facility]02/20/24Team MemberRelationshipSpecialtyStart DateEnd Date Kromer, Judy PCP - [facility]02/20/24Team MemberRelationshipSpecialtyStart DateEnd Date Kromer, Judy PCP - [facility]02/20/24Team MemberRelationshipSpecialtyStart DateEnd Date Kromer, Judy PCP - [facility]02/20/24 Team Status: Inactive Member Role Status Dates Caesar Broderick DO Attending Provider Active Start : December 18, 2024 End: December 18, 2024Team MemberRelationshipSpecialtyStart DateEnd Date June Trinidad LPN Licensed Practical NurseReproductive Endocrinology and Infertility01/01/25Team MemberRelationshipSpecialtyStart DateEnd Date Kromer, Judy PCP - [facility]02/20/24Team MemberRelationshipSpecialtyStart DateEnd Date Kromer, Judy PCP - [facility]02/20/24Team MemberRelationshipSpecialtyStart DateEnd Date Kromer, Judy PCP - [facility]02/20/24Team MemberRelationshipSpecialtyStart DateEnd Date Judy Caal PCP - [facility]02/20/24am MemberRelationshipSpecialtyStart DateEnd Date Services, [facility] [address] [place], [place] PCP - GeneralFamily Medicine11/03/24Team MemberRelationshipSpecialtyStart DateEnd Date Services, [facility] [address] [place], [place] PCP - GeneralFamily Medicine11/03/24Team MemberRelationshipSpecialtyStart DateEnd Date Lima Caalsa PCP - [facility]02/20/24Team MemberRelationshipSpecialtyStart DateEnd Date [facility], [facility] [address] [place], [place] PCP - GeneralFamily Medicine11/03/24Team MemberRelationshipSpecialtyStart DateEnd Date Services, [facility] [address] [place], [place] PCP - GeneralFamily Medicine11/03/24Team MemberRelationshipSpecialtyStart DateEnd Date [facility] [address] [place], [place] PCP - GeneralFamily Medicine11/03/24Team MemberRelationshipSpecialtyStart DateEnd Date Andres Caalyssa PCP - [facility]02/20/24Team MemberRelationshipSpecialtyStart DateEnd Date Afua Judy PCP - [facility]02/20/24Team MemberRelationshipSpecialtyStart DateEnd Date Services, [facility] [address] [place], [place] PCP - GeneralFamily Medicine11/03/24Team MemberRelationshipSpecialtyStart DateEnd Date Judy Caal PCP - [facility]02/20/24 Goals (unrecognized section and content) Goals may be documented in a n alternate section INFORMATION SOURCE (unrecogn ized section and content) DATE CREATED AUTHOR 12/29/2024 [facility] DATE CREATED AUTHOR AUTHOR'S ORGANIZ ATION 01/07/2025 [facility] DATE CREATED AUTHOR AUTHOR'S ORGANIZ ATION 06/19/2025 [facility] DATE CREATED AUTHOR AUTHOR'S ORGANIZ ATION 06/20/2025 [facility] DATE CREATED AUTHOR AUTHOR'S ORGANIZ ATION 06/25/2025 [facility] EPIC FOR RECORDS [...] BE BASED ON THE PRIMARY CLINICAL RECORDS. [employer] provides no warranty or guarantee of the accuracy or completeness of information in this document.
[2025-07-16 10:17] VITALS: BP 134/76; PULSE 97
== END 2025-07-16 11:35 | disposition home or self-care (01) ==
LOC: FBCO 10:09 → FBC 10:10
PROVIDERS: Visit Provider Obstetrics & Gynecology
DX: O10.913 Unspecified pre-existing hypertension complicating pregnancy, third trimester (principal)
CPT/HCPCS: 59025

== ENCOUNTER 2025-07-23 10:00 | Outpatient (OUT) | payer MEDICAID, SELFPAY ==
--- OUTSIDE RECORDS SUMMARY | 2025-07-09 13:20 | XMS_ITS | Encounter Summary ---
Author Organization [facility] Address [address] [place] [address] Care Team Providers Care Acute Care Surgeon Name Role Phone Judy Caal Unavailable Unavailable Reason for Visit * ReasonCommentsRoutine Visit Encounter Details DateTypeDepartmentCare Team (Latest Contact Info)Hvfciohxfle78/18/2025 1:20 PM ESTRoutine [facility] [address] [facility] [address] Bethany Simon PA [address] [facility] [place] [address] 27 weeks gestation of ([facility]); Second trimester ([facility]); H/O pre-eclampsia in prior , currently ([facility]); Vitamin D deficiency; Chronic hypertension affecting ([facility]); BV (bacterial vaginosis) Social History Tobacco UseTypesPacks/DayYears UsedDateSmoking Tobacco: Never AssessedPHQ-2 AnswerDate RecordedPatient Health Questionnaire-2 Xwgxa47809/01/2024 Estimated Date of PeqwleikJxkrwrqpDud90/11/2026Based on last menstrual period of 12/26/2024Sex and Gender InformationValueDate RecordedSex Assigned at BirthNot on fileLegal FjgJzxmdb09/06/2024 9:48 AM EDTGender IdentityNot on fileSexual OrientationNot on filedocumented as of this encounter Last Filed Vital Signs Vital SignReadingTime TakenCommentsBlood Qsiinouv932/7007/09/2025 1:41 PM EST Pulse--Temperature--Respiratory Rate--Oxygen Saturation--Inhaled Oxygen Concentration--Fgjjkh939 kg (286 lb 1.9 oz)07/09/2025 1:41 PM [...] (polycystic ovarian syndrome) 07/30/2024 induced hypertension, antepartum ([facility]) 04/25/2025 Vitamin D deficiency 05/23/2025 H/O pre-eclampsia in prior , currently ([facility]) 05/23/2025 Resolved Ambulatory Problems Diagnosis Date Noted [...] nursing note reviewed. Exam conducted with a search engine optimization analyst present. Vitals: Estimated body mass index is 43.5 kg/m?? as calculated from the following: Height as of 06/11/24: 5' 8 . Weight as of this encounter: 286 lb 1.9 oz. BP: 130/70 Patient's last menstrual period was 12/26/2024. Assessment/Plan ICD-10-CM 1. 27 weeks gestation of ([facility]) Z3A.27 POCT urinalysis dipstick manually resulted 2. Second trimester ([facility]) Z34.92 POCT urinalysis dipstick manually resulted 3. H/O pre-eclampsia in prior , currently ([facility]) O09.299 4. Vitamin D deficiency E55.9 5. Chronic hypertension affecting ([facility]) O10.919 NIFEdipine XL (Procardia XL) 60 MG [...] Plan of Treatment DateTypeDepartmentCare Team (Latest Contact Info)Oxktehrxkir17/03/2025 11:20 AM ESTRoutine NOMTrent HEAD [address] [place] [address] [place] [phone] Caesar Broderick, DO [address] [place] [address] [place] [address] 12/16/2025 3:00 PM EDTOffice Visit NOMTrent HEAD [address] [place] [address] [place] [address] Caesar Broderick, [address] [facility] [address] [place], [place] [address] documented as of this encounter Procedures Procedure NamePriorityDate/TimeAssociated DiagnosisCommentsPOCT URINALYSIS VUGHLQEPOqvsucz30/18/2025 1:46 PM EST 27 weeks gestation of ([facility]) Second trimester ([facility]) documented in this encounter Results * POCT [...] PM EST Narrative Authorizing ProviderResult TypeResult StatusBethany Winton PAPOINT OF CARE TEST ENTER/EDIT ORDERABLESFinal Result documented in this encounter Visit Diagnoses Diagnosis 27 weeks gestation of ([facility]) Second trimester ([facility]) state, incidental H/O pre-eclampsia in prior , currently ([facility]) Vitamin D deficiency Chronic hypertension affecting ([facility]) BV (bacterial vaginosis) Unspecified vaginitis and vulvovaginitis documented in this encounter Care Teams Team MemberRelationshipSpecialtyStart DateEnd Date Judy Caal PCP - [facility]02/20/24documented as of this encounter
--- NOTE | 2025-07-23 | US_ITS ---
[facility] [place] [address] Patient Name: ELLEN MITCHELL MRN: [id number] date: 1990 Sex: F Assigned Patient Location: [facility] Current Patient Location: Accession/Order Number: [id number] Exam Date: 07/23/2025 10:04 Report Date: 07/23/2025 10:49 At the request of: ISRAEL LUNA DO Procedure: US OB BPP w non-stress BIOPHYSICAL PROFILE: CLINICAL INFORMATION: HISTORY OF PRE ECLAMPSIA COMPARISON: 07/12/2025 There is a single live intrauterine gestation in cephalic presentation. The reported gestational age is 29 weeks 6 days. The heart rate measures 155 beats per minute. FINDINGS: TONE: 1 or more episodes of activity extension and flexion of extremity or opening and closing of the hand [Y] 2/2 GROSS BODY MOVEMENTS: 3 or more discrete body or limb movements [Y] 2/2 BREATHING MOVEMENTS: 1 or more episodes of breathing lasting at least 30 seconds [Y] 2/2 CHETAN: A single deepest vertical pocket of amniotic fluid greater than 2 cm [Y] 2/2 CHETAN: 13.4 cm Total score: 8/8 US/US OB BPP w non-stress IMPRESSION: NORMAL BIOPHYSICAL PROFILE Impression dictated by: Kita Florentino M.D. 07/23/2025 10:49 AM Dictation Location: [place] [address] Electronically authenticated by: [id number] Y Date: 07/23/2025 10:49
--- OUTSIDE RECORDS SUMMARY | 2025-07-23 10:02 | XMS_ITS | Clinical Summary ---
Author Organization [facility] Healthcare Address [address] [place] [address] Care Team Providers Care Design Engineer Name Role Phone Judy Caal Unavailable Unavailable [...] MG 24 hr tablet Indications:Chronic hypertension affecting (HHS-HCC)Take 1 tablet (60 mg) by mouth at noon and 1 tablet (60 mg) in the evening. Take 1 tablet in the am. Do not crush, chew, or split. 30 tablet 6Active Procardia XL 30 MG 24 hr tablet Take 30 mg by mouth DailyDiscontinued NIFEdipine XL (Procardia XL) 60 MG 24 hr tablet Indications:Chronic hypertension affecting (HHS-HCC)Take 1 tablet (60 mg) by mouth Daily Take 1 tablet in the am. Do not crush, chew, or split. 30 tablet Discontinued(Dose adjustment) metroNIDAZOLE (Metrogel) 0.75 % vaginal gel Indications:BV (bacterial vaginosis)Insert into the vagina Daily for 5 days 70 g Expired Active Problems ProblemNoted DateDiagnosed DateVitamin D kpgjgvtipe67/02/2025H/O pre-eclampsia in prior , currently ([facility])05/23/2025Pregnancy induced hypertension, antepartum ([facility])04/25/2025Fallopian tube udfjzrcw46/09/2024 PCOS (polycystic ovarian syndrome)07/30/2024Estimated Date of Delivery ThfcdbauMgw38/11/2026ased on last menstrual period of 12/26/2024 Encounters DateTypeDepartmentCare HrquGarbnselfce68/21/2025linisync Result Encounter NOMS External Department Unsolicited Israel Broderick, DO 07/12/2025linisync Result Encounter NOMS External Department Unsolicited Israel Broderick, DO 07/09/2025 1:20 PM ESTRoutine NOMS Aman [place] [address] Bethany Simon PA 27 weeks gestation of ([facility]); Second trimester ([facility]); H/O pre-eclampsia in prior , currently ([facility]); Vitamin D deficiency; Chronic hypertension affecting ([facility]); BV (bacterial vaginosis)07/09/2025amboo flowsheet [facility] [address] [place] [address] Bethany Simon PA 07/06/2025linisync Result Encounter NOMS External Department Unsolicited Israel Broderick, DO 07/05/2025Telephone [facility] [address] [place] [address] Tsering Willingham MA 07/04/2025linisync Result Encounter NOMS External Department Unsolicited Israel Broderick, DO 07/02/2025Patient Outreach [facility] [address] [place] [phone] [phone] Bethany Sheehan LPN 06/24/2025 1:50 PM ESTRoutine [facility] [address] [place] [address] Israel Broderick, DO Second trimester ([facility]); 25 weeks gestation of ([facility]); H/O pre-eclampsia in prior , currently ([facility]); Vitamin D deficiency; Chronic hypertension affecting ([facility]); Diabetes mellitus kgkviyjfg58/03/2025amboo flowsheet [facility] [address] [place] [address] Israel Broderick DO 06/23/20250699Hhcutk73/15/2025 8:50 AM EDTRoutine N[facility] [address] [place] [address] Rosie Qiu NP Second trimester ([facility]); 23 weeks gestation of ([facility])06/05/2025amboo flowsheet [facility] [address] [place] [address] Rosie Qiu NP 06/04/2025Patient Outreach [facility] [address] [place] [address] Bethany Sheehan LPN 05/31/2025bstract [facility] [address] [place] [address] Bethany Sheehan LPN 05/30/2025 3:20 PM EDTRoutine [facility] [address] [place] [address] Rosie Qiu NP Chronic hypertension affecting ([facility]) (Primary Dx); Second trimester ([facility]); 22 weeks gestation of ([facility])05/30/2025amboo flowsheet [facility] [address] [place] [address] Rosie Qiu NP 05/29/20258546Rmndwu41/07/2025Telephone [facility] [place] [facility] [address] [place] [address] Melanie Almaraz MA 05/23/2025 2:30 PM EDTRoutine [facility] [place] [facility] [address] [place] [address] [place] Qiu, JEM Second trimester ([facility]); 21 weeks gestation of ([facility]); induced hypertension, antepartum ([facility]); Vitamin D deficiency; H/O pre-eclampsia in prior , currently ([facility])05/23/2025 Clinisync Result Encounter NOMS External Department Unsolicited Israel Broderick, 05/23/2025amboo flowsheet [facility] [place] [facility] [address] [place] [address] [place] Qiu, JEM 05/22/20254070Bwnbgg80/29/2025bstract [facility] [address] [place] [address] Tsering Willingham [place] 05/17/2025External Result Encounter [facility] [place] [facility] [address] [place] [address] Israel Broderick, 05/15/2025Refill [facility] [place] [facility] [address] [place] [address] Israel Broderick, Second trimester ([facility]); Gestational hypertension, antepartum ([facility])05/15/2025Telephone [facility] [place] [facility] [address] [place] [address] Israel Broderick, 04/26/2025bstract [facility] [place] [facility] [address] [place] [address] Tsering [place] 04/26/2025Telephone [facility] [address] [place] [address] [place] [address] Tsering Willingham MA 04/25/2025 11:10 AM EDTRoutine NOMS Aman WUN [address] [place] [address] [place] [address] Israel Broderick DO Screening, , for anatomic survey ([facility]); Second trimester ([facility]); 17 weeks gestation of ([facility]); Screen for STD (sexually transmitted disease); Need for maternal serum alpha-protein (MSAFP) screening ([facility]); induced hypertension, antepartum ([facility]); Vitamin D uvtaqglsmj39/04/2025amboo flowsheet NOMTrent [address] [place] [address] Israel Broderick DO 04/23/2025Travelfrom Last 3 Months Family History Medical HistoryRelationNameCommentsepilepsyBrotherDiabetesFatherHTNFather Pancreatic cancerMaternal GrandfatherhtnMotherRelationNameStatusCommentsBrother FatherMaternal GrandfatherMother Social History Tobacco UseTypesPacks/DayYears UsedDateSmoking Tobacco: Never AssessedPHQ-2 AnswerDate RecordedPatient Health Questionnaire-2 Xtzqf82009/01/2024 Estimated Date of CfpatdwlZzgedbikNcs09/11/2026Based on last menstrual period of 12/26/2024Sex and Gender InformationValueDate RecordedSex Assigned at BirthNot on fileLegal YxuHejtxa43/06/2024 9:48 AM EDTGender IdentityNot on fileSexual OrientationNot on file Last Filed Vital Signs Vital SignReadingTime TakenCommentsBlood Vdarxqyr055/7007/09/2025 1:41 PM EST Pulse--Temperature--Respiratory Rate--Oxygen Saturation--Inhaled Oxygen Concentration--Ruyjeh372 kg (286 lb 1.9 oz)07/09/2025 1:41 PM XYYHbdlon067.7 cm (5' 8 )06/11/2024 2:39 PM EDTBody Mass Index43. 2:39 PM EDT Plan of Treatment DateTypeDepartmentCare Team (Latest Contact Info)Hwtumjcqlal71/03/2025 11:20 AM ESTRoutine NOMTrent HEAD [address] [place] [address] [place] [phone] Israel Broderick, DO [address] [place] [address] 12/16/2025 3:00 PM EDTOffice Visit LIANA HEAD [address] [place] [address] [place] [phone] Israel Broderick, DO [address] [place], [place] [phone] Health MaintenanceDue DateLast DoneCommentsCOVID-19 Vaccine (2024- season) 2025Influenza Vaccine (#1)2025HPV/Pnbsfu44/804/3Cervical Cancer Ywtbrmpcr39/21/2028Pap Smear, 3Pneumococcal Vaccine: Pediatrics (0 to 5 Years) and At-Risk Patients (6 to 64 Years)Aged Out No longer eligible based on patient's age to complete this topic Procedures Procedure NamePriorityDate/TimeAssociated DiagnosisCommentsUS OB GROWTH 07/12/2025 2:57 PM EST US OB BPP W NON-RSVYCT1907/12/2025 2:56 PM EST POCT URINALYSIS TXMFACWFJvyrrsl07/18/2025 1:46 PM EST 27 weeks gestation of ([facility]) Second trimester ([facility]) GLUCOSE TOLERANCE 3 YYCWJmkqnqg56/15/2025 8:09 AM EST ALL CBC WITH AUTO ZATVExpwvcg66/15/2025 8:09 AM EST GLUCOSE 1 XAQLIvaudlu66/13/2025 10:25 AM EST ALL CBC WITH AUTO PNIRZkeediw58/13/2025 10:25 AM EST POCT URINALYSIS QTJPKSZULqdflxh08/03/2025 1:51 PM EST Second trimester ([facility]) POCT URINALYSIS ARRQYUZSBbatgiu28/15/2025 9:03 AM EDT Second trimester ([facility]) POCT URINALYSIS NXBCTJHPPlieyvy39/09/2025 3:24 PM EDT 22 weeks gestation of ([facility]) AFP, SERUM, OPEN SPINA VDIXMGXkqrhqr94/02/2025 2:30 PM EDT US OB 14+ WEEKS ANATOMY SCAN05/17/2025 4:39 PM EDT RECURRENT VAGINITIS (HTRX)Fufzagp2704/25/2025 3:21 PM EDT POCT URINALYSIS ORUAYPSRJzzxaux87/04/2025 11:38 AM EDT Second trimester ([facility]) PAP HUHEYChedqtl29/21/2025 12:00 AM EDTfrom Last 3 Months or Most Recently Relevant to Health Maintenance Results * US OB GROWTH (07/12/2025 2:57 PM EST)Anatomical RegionLateralityModalityOther Specimen (Source)Anatomical Location / LateralityCollection Method / Volume Collection TimeReceived Time07/12/2025 2:57 PM EST Narrative 07/12/2025 3:00 PM EST [facility] ?[address] ? [place] [address] ? Ultrasound Report ? Signed ? Patient: ELLEN RAMIRES ?MR#: [id number] ?? : 1990 ?Acct:[id number] ?? Age/Sex: 35 / F ?ADM Date: 11/21/25 ?? Loc: US ? Attending Dr: Israel Broderick D.O. ? Ordering Physician: Israel Broderick D.O. ?? Date of Service: 07/12/25 ?? Procedure(s): US OB growth ?? Accession Number(s): [id number] ? cc: Israel Broderick D.O.; Judy Yepez PERSONAL CLOTHING LAUNDRY AIDE ? [facility] ? [address] ? [place] [address] ? Patient Name: ?? ELLEN RAMIRES ? MRN: [facility]:[id number] ? date: 1990 ?Sex: F ?? Assigned Patient Location: ?? Current Patient Location: [facility] ?? Accession/Order Number: [id number] ?? Exam Date: 07/12/2025 ??09:56 ?Report Date: 07/12/2025 ??14:57 ? At the request of: ?? ISRAEL ??DAVIE ??DO ? Procedure: ??US OB growth ? OB growth ultrasound. ? Reason for exam:History of preeclampsia. ? Comparison:None ? Technique: Transabdominal imaging of the gravid uterus was obtained. ? Findings: ? Single live intrauterine measuring 29 weeks 1 day by anatomic ?? measurements. ??Appropriate growth by dating. ?? heart rate 1 39 bpm. ? Estimated weight is 1286 g. ??CHETAN is normal at 12.81 cm. ??Fetus position ?? is cephalic at time of scanning. ? US/US OB growth ?? Impression: ? Single live intrauterine 29 weeks 1 day by anatomic measurements. ? Appropriate growth. ? Impression dictated by: Mariusz Malloy Jr. D.OMeghan ??07/12/2025 2:57 PM ? Dictation Location: [facility]- ? Electronically authenticated by: [id number] ??Y ?? Date: 07/12/2025 ??14:57 ? Dictated By: ?Mariusz Malloy M.D. ? Signed By: ?07/12/25 1500 ? DD/ 145 ? TD/TT: ? Medical Pathologist: Procedure Note Radiology, Radiologist, MD - 07/12/2025 [place] [address] Ultrasound Report Signed Patient: SANTHOSH RAMIRESEN JMR#: [id number] : 1990Acct:[id number] Age/Sex: 35 / FADM Date: 07/12/25 Loc: US Attending Dr: Israel Broderick D.O. Ordering Physician: Israel Broderick D.O. Date of Service: 07/12/25 Procedure(s): US OB growth Accession Number(s): [id number] cc: Israel Broderick D.O.; Judy Yepez NP [place] [phone] Patient Name: ELLEN RAMIRES MRN: [facility]:[id number] date: 1990 Sex: F Assigned Patient Location: US Current Patient Location: [facility] Accession/Order Number: [id number] Exam Date: 07/12/2025 09:56 Report Date: 07/12/2025 14:57 At the request of: ISRAEL BRODERICK DO Procedure: US OB growth OB growth ultrasound. Reason for exam:History of preeclampsia. Comparison:None Technique: Transabdominal imaging of the gravid uterus was obtained. Findings: Single live intrauterine measuring 29 weeks 1 day by anatomic measurements. Appropriate growth by dating. heart rate 1 39 bpm. Estimated weight is 1286 g. CHETAN is normal at 12.81 cm. Fetusposition is cephalic at time of scanning. US/US OB growth Impression: Single live intrauterine 29 weeks 1 day by anatomicmeasurements. Appropriate growth. Impression dictated by: Mariusz Malloy Jr., D.O. 07/12/2025 2:57 PM Dictation Location: [place] [address] Electronically authenticated by: [id number] Y Date: 4:57 Dictated By: Mariusz Malloy M.D. Signed By:07/12/25 1500 DD/ 1457 TD/TT: Medical Pathologist: Authorizing ProviderResult TypeResult StatusCorey Davie DOCLINISYNC IMAGINGFinal Result * US OB BPP W NON-STRESS (07/12/2025 2:56 PM EST)Anatomical Region LateralityModalityOtherSpecimen (Source)Anatomical Location / Laterality Collection Method / VolumeCollection TimeReceived Time07/12/2025 2:56 PM EST Narrative 07/12/2025 2:58 PM EST [facility] ?[address] ? [place] [address] ? Ultrasound Report ? Signed ? Patient: RAMIRES,ELLEN J ?MR#: [id number] ?? : 1990 ?Acct:[id number] ?? Age/Sex: 35 / F ?ADM Date: 07/12/25 ?? Loc: US ? Attending Dr: Israel Broderick D.O. ? Ordering Physician: Israel Broderick D.O. ?? Date of Service: 07/12/25 ?? Procedure(s): US OB BPP w non-stress ?? Accession Number(s): [id number] ? cc: Israel Broderick D.O.; Judy Yepez PERSONAL CLOTHING LAUNDRY AIDE ? [facility] ? [address] ? [place] [address] ? Patient Name: ?? ELLEN RAMIRES ? MRN: [facility]:[id number] ? date: 1990 ?Sex: F ?? Assigned Patient Location: ?? Current Patient Location: [facility] ?? Accession/Order Number: [id number] ?? Exam Date: 07/12/2025 ??09:56 ?Report Date: 07/12/2025 ??14:56 ? At the request of: ?? ISRAEL ??DAVIE ??DO ? Procedure: ??US OB BPP w non-stress ? Biophysical profile. ? Reason for exam: History of preeclampsia ? COMPARISON: None ? TECHNIQUE: Transabdominal imaging of the gravid uterus was obtained. ? FINDINGS: The turkey roll maker reports a BPP of 8 out of 8. ??CHETAN is normal at 12.8 ?? cm. ?? heart rate 159 bpm. ? US/US OB BPP w non-stress ?? IMPRESSION: BPP 8 out of 8. ? Impression dictated by: Mariusz Malloy Jr., D.O. ??07/12/2025 2:56 PM ? Dictation Location: [facility] ? Electronically authenticated by: [id number] ??Y ?? Date: 07/12/2025 ??14:56 ? Dictated By: ?Mariusz Malloy M.D. ? Signed By: ?07/12/25 1458 ? DD/ 1456 ? TD/TT: ? Medical Pathologist: Procedure Note Radiology, Radiologist, MD - 07/12/[address] [address] Ultrasound Report Signed Patient: ELLEN RAMIRES JMR#: [id number] : 1990Acct:[id number] Age/Sex: 35 / FADM Date: 07/12/25 Loc: US Attending Dr: Israel Broderick D.O. Ordering Physician: Israel Broderick D.O. Date of Service: 07/12/25 Procedure(s): US OB BPP w non-stress Accession Number(s): [id number] cc: Israel Broderick D.O.; Judy Yepez NP The [place] [address] Patient Name: ELLEN RAMIRES MRN: [facility]:[id number] date: 1990 Sex: F Assigned Patient Location: US Current Patient Location: [facility] Accession/Order Number: [id number] Exam Date: 07/12/2025 09:56 Report Date: 07/12/2025 14:56 At the request of: ISRAEL BRODERICK DO Procedure: US OB BPP w non-stress Biophysical profile. Reason for exam: History of preeclampsia COMPARISON: None TECHNIQUE: Transabdominal imaging of the gravid uterus was obtained. FINDINGS: The turkey roll maker reports a BPP of 8 out of 8. CHETAN is normal at12.8 cm. heart rate 159 bpm. US/US OB BPP w non-stress IMPRESSION: BPP 8 out of 8. Impression dictated by: Mariusz Malloy Jr., D.O. 07/12/2025 2:56 PM Dictation Location: [place] [address] Electronically authenticated by: [id number] Y Date: 4:56 Dictated By: Mariusz Malloy M.D. Signed By:07/12/25 1458 DD/ 1456 TD/TT: Medical Pathologist: Authorizing ProviderResult TypeResult StatusCorey Davie DOCLINISYNC IMAGINGFinal Result * POCT urinalysis dipstick manually resulted (07/09/2025 1:46 PM EST) Only the most recent of5 [...] Location / LateralityCollection Method / VolumeCollection TimeReceived MakhHxlhp72/18/2025 1:46 PM EST Narrative Authorizing ProviderResult TypeResult StatusSentara [facility] TEST ENTER/EDIT ORDERABLESFinal Result * GLUCOSE TOLERANCE [...] ResultPerforming OrganizationAddressCity/State/ZIP CodePhone Number CLINISYNC TB[facility] * (ABNORMAL) ALL CBC WITH AUTO DIFF (07/06/2025 8:09 AM EST) Only the most recent of2 resultswithin the time period is included. ComponentValueRef RangeTest MethodAnalysis TimePerformed AtPathologist Signature TBH WBC15.3(H)4.0 - 11.0 10 3/uLTBHTBH RBC3.77(L)4.20 - 5.40 10 6/uLTBHTBH HGB 11.7(L)12.0 - 16.0 g/dLTBHTBH HCT35.1(L)36.0 - 48.0 %TBHTBH MCV93.181.0 - 99.0 fLTBHTBH MCH31.026.7 - 34.0 pgTBHTBH MCHC33.329.9 - 35.2 g/dLTBHTBH RDW13.011.0 - 15.0 %TBHTBH GOL811907 - 450 10 3/uLTBHTBH MPV10.59.5 - 13.5 [...] DOCLINISYNCFinal Result Performing OrganizationAddressCity/State/ZIP CodePhone Number EVA ANTONYH * (ABNORMAL) GLUCOSE 1 HOUR (07/04/2025 10:25 AM EST)ComponentValueRef RangeTest MethodAnalysis TimePerformed AtPathologist SignatureGLUCOSE 1 XPIW808(H)<130 mg/dLTBHSpecimen (Source)Anatomical Location / LateralityCollection Method / VolumeCollection TimeReceived Time07/04/2025 10:25 AM EST07/04/2025 10:33 AM EST Narrative CLINISYNC - 07/04/2025 11:32 AM EST Authorizing ProviderResult TypeResult StatusCorey Davie DOLAB BLOOD ORDERABLES Final ResultPerforming OrganizationAddressCity/State/ZIP CodePhone Number EVA ANTONYH * AFP, SERUM, OPEN SPINA BIFIDA (05/23/2025 2:30 PM EDT)ComponentValueRef Range Test MethodAnalysis TimePerformed AtPathologist SignatureRESULTSReport.TBHTEST RESULTS:*Screen Negative*.TBHGEST. AGE ON COLLECTION DATE21.1. weeksTBHGESTAT. AGE BASED ONLMP.TBHComment: Recalculations are not recommended when gestational dating by LMP and ultrasound are within 10 days. MATERNAL AGE AT EDD33.5. yrTBHRACECaucasian.VZRKGRQOL343. lbsTBHINSULIN DEP DIABETESNo.TBHMULTIPLE GESTATIONNo.TBHAFP VALUE38.2. ng/mLTBHAFP MOM0.85.TBHOSBR RISK 1 TR53122.TBHINTERPRETATIONComment.TBHComment: Interpretation: Screen Negative This result is screen [...] Customer Services to discuss available options. ??The [employer] recommends amniocentesis be offered to women age 35 and older. COMMENT:Comment.TBHComment: Gema Ortez, Ph.D., [facility] Director References: Available Upon Request. Multiples Of Median Cutoffs ?For AFP Elevations Kumar ?? 2.5 ? Black ?2.8 IDD ? 2.0 ? Twins ?4.5 ?Abbreviation Definitions IDD - Insulin Dep Diabetes OSBR - Open Spina Bifida Risk For further inquiries contact [employer] [facility] at [phone]. This test was developed and its performance characteristics determined by [employer]. It has not been cleared or approved by the Food and Drug Administration. Performed at: ?? - [place] [address] [place], [place] ??[id number] Living Supervisor: Jesus Saleh [facility], Phone: ??[phone] Specimen (Source)Anatomical Location / LateralityCollection Method / Volume Collection TimeReceived Time05/23/2025 2:30 PM EDT1 2:40 PM EDT Narrative CLINISYNC - 05/25/2025 1:07 AM EDT N N LMP [id number] 2 9 N 1 282 N N N N N White/ Authorizing ProviderResult TypeResult StatusCorey Davie DOLAB BLOOD ORDERABLES Final ResultPerforming OrganizationAddressCity/State/ZIP CodePhone Number [facility] TB * OB 14+ weeks anatomy scan (05/17/2025 4:39 PM EDT)Anatomical Region LateralityModalityBodyUltrasoundSpecimen (Source)Anatomical Location / LateralityCollection Method / VolumeCollection TimeReceived Time05/17/2025 4:39 PM EDT Narrative 05/17/2025 4:39 PM EDT THIS EXAM WAS PERFORMED AT [facility] NAME: ??PAULA HUGHES : 1990 SEX: F Accession Number: [id number] ORDERING PHYSICIAN: ISRAEL BRODERICK REFERRING PHYSICIAN: ISRAEL BRODERICK Coding Procedures ? 72492: Ultrasound, uterus, real time with image documentation, and maternal evaluation ? plus detailed anatomic examination, transabdominal approach;single or first gestation ? 77308: Ultrasound, uterus, real time with image documentation, transvaginal Indication Screening for Anatomic Survey , Screening for cervical length , Anxiety , Depression , Gestational hypertension without significant proteinuria , Obesity in , History of gestational hypertension. History OB History ? 2. Para 1 ? [id number] Maternal Assessment Physical Exam ??Height 173 cm, [...] (oz) ? 13 oz EFW by: ?Hadlock (FJI-XB-XW-FL) Extended Tibia ??23.0 mm 18w 1d 2% [...] Heart/Thorax: RVOT view. LVOT view. 3-vessel view. 1-ppzxne-wztbext view. Situs. Bicaval view. Cardiac position. ? [...] - 05/17/2025 THIS EXAM WAS PERFORMED AT [facility] NAME: PAULA HUGHES : 1990 SEX: F Accession Number: [id number] ORDERING PHYSICIAN: ISRAEL BRODERICK REFERRING PHYSICIAN: ISRAEL BRODERICK Coding Procedures 72869: Ultrasound, uterus, real time with image documentation, and maternal evaluation plus detailed anatomic examination, transabdominalapproach;single or first gestation 99021: Ultrasound, uterus, real time with imagedocumentation, transvaginal Indication Screening for Anatomic Survey , Screening for cervical length , Anxiety , Depression , Gestational hypertension without significant proteinuria , Obesity in , History of gestational hypertension. History OB History 2. Para 1 [id number] Maternal Assessment Physical Exam Height 173 cm, [...] EFW (oz) 13 oz EFW by: Hadlock (QJU-TH-GV-FL) Extended Tibia 23.0 mm 18w 1d 2% [...] Heart/Thorax: RVOT view. LVOT view. 3-vessel view. 9-spxxko-xuvjzct view.Situs. Bicaval view. Cardiac position. Cardiac axis. [...] byprimary OB provider unless otherwise specified by [facility]. Results forwarded to ordering provider so they can follow up with thepatient as necessary. Authorizing ProviderResult TypeResult StatusCorey Davie DOIMG OB US PROCEDURES Final Result * (ABNORMAL) RECURRENT VAGINITIS (HTRX) (04/25/2025 3:21 PM EDT)ComponentValue Ref RangeTest MethodAnalysis TimePerformed AtPathologist SignatureATOPOBIUM YTTBIXZ823.961 - ppm04/26/2025 6:40 AM EDTHealthTrackRx at [facility] ATOPOBIUM VAGINAENot Mmepexot97.961 - . ppm04/26/2025 6:40 AM EDT [facility],3 (BACTERIAL VAGINOSIS ASSOCIATED BACTERIA 2, 3); MOBILUNCUS SPP24.556(A).961 - .9 ppm04/26/2025 6:40 AM EDT [facility] (BACTERIAL VAGINOSIS ASSOCIATED BACTERIA 2, 3); MOBILUNCUS SPPDetected(A)19.961 - 24.689 ppm04/26/2025 6:40 AM EDT [facility] ALBICANS, PARAPSILOSIS, BVZCWLVSAP706.000 - 30.347 ppm04/26/2025 6:40 AM EDTHealthTrackRx at [facility]PortC[facility] ALBICANS, PARAPSILOSIS, TROPICALISNot Hxxsdhfw16.000 - 30.347 ppm04/26/2025 6:40 AM EDT [facility] VPKTWBCM464.000 - 31.618 ppm04/26/2025 6:40 AM EDTHealthTrackRx at [facility]PortC[facility]IDA GLABRATANot Wbopghsi02.000 - 31.618 ppm 04/26/2025 6:40 AM EDTHealthTrackRx at [facility]PortC[facility] TKTWWJ157.000 - 30.873 ppm04/26/2025 6:40 AM EDTHealthTrackRx at [facility]PortC[facility]IDA KRUSEINot Detected 23.000 - 30.873 ppm04/26/2025 6:40 AM EDTHealthTrackRx at LabPortCHLAMYDIA NEZZGAJQCJJ342.000 - 31.586 ppm04/26/2025 6:40 AM EDTHealthTrackRx at [facility] CHLAMYDIA TRACHOMATISNot Klewmpbk78.000 - 31.586 ppm04/26/2025 6:40 AM EDT [facility] at LabPortGARDNERELLA KIDBCSWAO508.961 - 24.689 ppm04/26/2025 6:40 AM EDTHealthTrackRx at LabPortGARDNERELLA VAGINALISNot Gpvgezdg55.961 - 24.689 ppm04/26/2025 6:40 AM EDTHealthTrackRx at LabPortMEGASPHAERA (TYPES 1, 2)019.961 - 24.689 ppm09 6:40 AM EDTHealthTrackRx at LabPort MEGASPHAERA (TYPES 1, 2)Not Tjnhguib46.961 - 24.689 ppm04/26/2025 6:40 AM EDT [facility] at LabPortNEISSERIA RLRMIZLJPJO145.000 - 32.587 ppm04/26/2025 6:40 AM EDTHealthTrackRx at LabPortNEISSERIA GONORRHOEAENot Wjnzdhiy27.000 - 32.587 ppm04/26/2025 6:40 AM EDTHealthTrackRx at LabPortTRICHOMONAS VAGINALIS0 23.000 - 31.995 ppm04/26/2025 6:40 AM EDTHealthTrackRx at LabPortTRICHOMONAS VAGINALISNot Kuryipps81.000 - 31.995 ppm04/26/2025 6:40 AM EDTHealthTrackRx at LabPortMYCOPLASMA JJZYQESUGP868.961 - 24.689 ppm04/26/2025 6:40 AM EDT [facility]TrackRx at LabPortMYCOPLASMA GENITALIUMNot Oceniala20.961 - 24.689 ppm 04/26/2025 6:40 AM EDTHealthTrackRx at LabPortSpecimen (Source)Anatomical Location / LateralityCollection Method / VolumeCollection TimeReceived Time Sczrcs4504/25/2025 3:21 PM EDT04/26/2025 1:52 AM EDT Narrative Authorizing ProviderResult TypeResult StatusCorey Davie DOLAB BLOOD ORDERABLES Final ResultPerforming OrganizationAddressCity/State/ZIP CodePhone Number [facility] [address] [address] * Pap Smear (12/10/2024 12:00 AM EDT)Specimen (Source)Anatomical Location / LateralityCollection Method / VolumeCollection TimeReceived TimeSwabCervical swab / Unknown Narrative Authorizing ProviderResult TypeResult StatusFazio Nurse [facility] ObLAB CYTOLOGY ORDERABLESFinal ResultPerforming OrganizationAddressCity/State/ZIP CodePhone Number EXTERNAL LAB from Last 3 Months or Most Recently Relevant to Health Maintenance Insurance Care Teams Team MemberRelationshipSpecialtyStart DateEnd Date Judy Caal PCP - [facility]02/20/24
--- OUTSIDE RECORDS SUMMARY | 2025-07-23 10:02 | XMS_ITS | Clinical Summary ---
Author Organization [facility] Address [address] [place] [address] Phone Care Team Providers Care Riveter Name Role Phone June Trinidad LPN Unavailable Unavailable Allergies No known active allergies Medications MedicationSigDispense QuantityRefillsLast FilledStart DateEnd DateStatus metFORMIN (Glucophage) 500 mg tablet 1 tablet (500 mg).05/22/2024ctive Social History Tobacco UseTypesPacks/DayYears UsedDateSmoking Tobacco: NeverSmokeless Tobacco: Never Tobacco Cessation:Counseling Given: No Alcohol UseStandard Drinks/WeekCommentsNever0 (1 standard drink = 0.6 oz pure alcohol)PHQ-2AnswerDate RecordedPatient Health Questionnaire-2 Xxfbu122 CommentsUnknownSex and Gender InformationValueDate RecordedSex Assigned at BirthNot on fileLegal IenSsihbs11/06/2025 12:03 PM ESTGender IdentityNot on fileSexual OrientationNot on file Last Filed Vital Signs Vital SignReadingTime TakenCommentsBlood Hedaofne985/7805 10:52 AM EDT Xcdbj581201/03/2025 10:52 AM OKPEchjahgfvqm22.6 ??C (97.8 ??F)01/03/2025 10:52 AM EDTRespiratory Rate--Oxygen Saturation--Inhaled Oxygen Concentration--Lfpgyv527 kg (268 lb 9.6 oz)01/03/2025 10:52 AM IMDKkjynn949.7 cm (5' 8 )01/03/2025 10:52 AM EDTBody Mass Index40.845 10:52 AM EDT Plan of Treatment Health MaintenanceDue DateLast DoneCommentsHIV Wkapcyqyn1992Lipid Panel 1992MMR Vaccines (1 of 1 - Standard series)1993Hepatitis C Screening 2010Hepatitis B Vaccines (1 of 3 - 19+ 3-dose series)2011HPV/Cotest 2013DTaP/Tdap/Td Vaccines (1 - Tdap)2014HPV Vaccines (1 - 3-dose standard series)2019Influenza Vaccine (#1)2025OVID-19 Vaccine ( - season)2025early Adult Teszwowj41/22/980453/ervical Cancer Ujqvnrnxe21/21/2028Pap Smear12/10/706318/Zoster Vaccines (1 of 2) 2042HIB VaccinesAged OutNo [...] Ramires TypeRelation to PatientDate of BirthPhone Billing AddressPersonal/OsogtmFada1990 [address] [address] [place] [address] * Guarantor: Antoinette Ramires TypeRelation to PatientDate of BirthPhone Billing AddressPersonal/CknopxXxcn1990 [address] [address] [place] [address] Care Teams Team MemberRelationshipSpecialtyStart DateEnd Date June Trinidad LPN Licensed Practical NurseReproductive Endocrinology and Infertility01/01/25
--- OUTSIDE RECORDS SUMMARY | 2025-07-23 10:02 | XMS_ITS | Encounter Summary ---
Author Organization [facility] Address [address] [place] [address] Care Team Providers Care Retail Custodial Associate Name Role Phone Judy Caal Unavailable Unavailable Encounter Details DateTypeDepartmentCare Team (Latest Contact Info)Bkjlyexglai01/21/2025linisync Result Encounter [facility] External Department Unsolicited Israel Broderick, [address] [place], [place] [id number] Social History Tobacco UseTypesPacks/DayYears UsedDateSmoking Tobacco: Never AssessedPHQ-2 AnswerDate RecordedPatient Health Questionnaire-2 Cqxji60609/01/2024 Estimated Date of OlfxxwzyIqeizvdqUbe77/11/2026Based on last menstrual period of 12/26/2024Sex and Gender InformationValueDate RecordedSex Assigned at BirthNot on fileLegal DuwIswfpn44/06/2024 9:48 AM EDTGender IdentityNot on fileSexual OrientationNot on filedocumented as of this encounter Plan of Treatment DateTypeDepartmentCare Team (Latest Contact Info)Dbbeiotwsbx89/03/2025 11:20 AM ESTRoutine [facility] [facility] [address] [place] [phone] Israel Broderick DO [address] [place], [place] [address] 12/16/2025 3:00 PM EDTOffice Visit [facility] [address] [place] [address] [place] [address] Israel Broderick, DO [address] [facility] [place] [address] documented as of this encounter Procedures Procedure NamePriorityDate/TimeAssociated DiagnosisCommentsUS OB BPP W NON-NAUIHA6607/12/2025 2:56 PM EST documented in this encounter Results * US OB BPP W NON-STRESS (07/12/2025 2:56 PM EST)Anatomical Region LateralityModalityOtherSpecimen (Source)Anatomical Location / Laterality Collection Method / VolumeCollection TimeReceived Time07/12/2025 2:56 PM EST Narrative 07/12/2025 2:58 PM EST [facility] ?[address] ? [place] [address] ? Ultrasound Report ? Signed ? Patient: ELLEN RAMIRES ?MR#: [id number] ?? : 1990 ?Acct:[id number] ?? Age/Sex: 35 / F ?ADM Date: 07/12/25 ?? Loc: US ? Attending Dr: Israel Broderick D.O. ? Ordering Physician: Israel Broderick D.O. ?? Date of Service: 07/12/25 ?? Procedure(s): US OB BPP w non-stress ?? Accession Number(s): [id number] ? cc: Israel Broderick D.O.; Judy Yepez VICTIM WITNESS ADMINISTRATOR ? [facility] ? [address] ? [place] [address] ? Patient Name: ?? ELLEN RAMIRES ? MRN: [id number] ? date: 1990 ?Sex: F ?? Assigned Patient Location: US ?? Current Patient Location: [facility] ?? Accession/Order Number: [id number] ?? Exam Date: 07/12/2025 ??09:56 ?Report Date: 07/12/2025 ??14:56 ? At the request of: ?? ISRAEL ??DAVIE ??DO ? Procedure: ??US OB BPP w non-stress ? Biophysical profile. ? Reason for exam: History of preeclampsia ? COMPARISON: None ? TECHNIQUE: Transabdominal imaging of the gravid uterus was obtained. ? FINDINGS: The mash grinder reports a BPP of 8 out of 8. ??CHETAN is normal at 12.8 ?? cm. ?? heart rate 159 bpm. ? US/US OB BPP w non-stress ?? IMPRESSION: BPP 8 out of 8. ? Impression dictated by: Mariusz Malloy Jr., D.O. ??07/12/2025 2:56 PM ? Dictation Location: [facility]--22 ? Electronically authenticated by: [id number] ??Y ?? Date: 07/12/2025 ??14:56 ? Dictated By: ?Mariusz Malloy M.D. ? Signed By: ?07/12/25 1458 ? DD/ 1456 ? TD/TT: ? Health Services Coordinator: Procedure Note Radiology, Radiologist, MD - 07/12/2025 [place] [address] Ultrasound Report Signed Patient: ELLEN RAMIRES JMR#: [id number] : 1990Acct:[id number] Age/Sex: 35 / FADM Date: 07/12/25 Loc: US Attending Dr: Israel Broderick D.O. Ordering Physician: Israel Broderick D.O. Date of Service: 07/12/25 Procedure(s): US OB BPP w non-stress Accession Number(s): [id number] cc: Israel Broderick D.O.; Judy Yepez NP The [address] [address] Patient Name: ELLEN RAMIRES MRN: [facility]:[id number] date: 1990 Sex: F Assigned Patient Location: Current Patient Location: [facility] Accession/Order Number: [id number] Exam Date: 07/12/2025 09:56 Report Date: 07/12/2025 14:56 At the request of: ISRAEL BRODERICK DO Procedure: US OB BPP w non-stress Biophysical profile. Reason for exam: History of preeclampsia COMPARISON: None TECHNIQUE: Transabdominal imaging of the gravid uterus was obtained. FINDINGS: The mash grinder reports a BPP of 8 out of 8. CHETAN is normal at12.8 cm. heart rate 159 bpm. US/US OB BPP w non-stress IMPRESSION: BPP 8 out of 8. Impression dictated by: Mariusz Malloy Jr., D.O. 07/12/2025 2:56 PM Dictation Location: [place] [address] Electronically authenticated by: [id number] Y Date: 4:56 Dictated By: Mariusz Malloy M.D. Signed By:07/12/25 1458 DD/ 1456 TD/TT: Health Services Coordinator: Authorizing ProviderResult TypeResult StatusCorey Davie DOCLINISYNC IMAGINGFinal Result documented in this encounter Visit Diagnoses Not on filedocumented in this encounter Care Teams Team MemberRelationshipSpecialtyStart DateEnd Date Judy Caal PCP - [facility]02/20/24documented as of this encounter
--- OUTSIDE RECORDS SUMMARY | 2025-07-23 10:02 | XMS_ITS | Encounter Summary ---
Author Organization [facility] Address [address] [place] [address] Care Team Providers Care Telephone Lineworker Name Role Phone Judy Caal Unavailable Unavailable Encounter Details DateTypeDepartmentCare Team (Latest Contact Info)Tlgzulysrtt94/21/2025linisync Result Encounter [facility] External Department Unsolicited Israel Broderick, [address] [place], [place] [id number] Social History Tobacco UseTypesPacks/DayYears UsedDateSmoking Tobacco: Never AssessedPHQ-2 AnswerDate RecordedPatient Health Questionnaire-2 Tpbhr63109/01/2024 Estimated Date of OjiyxocoTpovijghZrc62/11/2026Based on last menstrual period of 12/26/2024Sex and Gender InformationValueDate RecordedSex Assigned at BirthNot on fileLegal YczXcxiso11/06/2024 9:48 AM EDTGender IdentityNot on fileSexual OrientationNot on filedocumented as of this encounter Plan of Treatment DateTypeDepartmentCare Team (Latest Contact Info)Fnnkxjyfxfp14/03/2025 11:20 AM ESTRoutine [facility] [address] [place] [phone] Israel Broderick DO [address] [place], [place] [address] 12/16/2025 3:00 PM EDTOffice Visit [facility] [address] [place] [address] [place] [address] Israel Broderick, DO [address] [facility] [place] [address] documented as of this encounter Procedures Procedure NamePriorityDate/TimeAssociated DiagnosisCommentsUS OB GROWTH 07/12/2025 2:57 PM EST documented in this encounter Results * US OB GROWTH (07/12/2025 2:57 PM EST)Anatomical RegionLateralityModalityOther Specimen (Source)Anatomical Location / LateralityCollection Method / Volume Collection TimeReceived Time07/12/2025 2:57 PM EST Narrative 07/12/2025 3:00 PM EST [facility] ?[address] ? [place] [address] ? Ultrasound Report ? Signed ? Patient: ELLEN RAMIRES ?MR#: [id number] ?? : 1990 ?Acct:[id number] ?? Age/Sex: 35 / F ?ADM Date: 07/12/25 ?? Loc: US ? Attending Dr: Israel Broderick D.O. ? Ordering Physician: Israel Broderick D.O. ?? Date of Service: 07/12/25 ?? Procedure(s): US OB growth ?? Accession Number(s): [id number] ? cc: Israel Broderick D.O.; Judy Yepez EPIDEMIOLOGY INTERN ? [facility] ? [address] ? [place] [address] ? Patient Name: ?? ELLEN RAMIRES ? MRN: [id number]:[id number] ? date: 1990 ?Sex: F ?? Assigned Patient Location: US ?? Current Patient Location: [facility] ?? Accession/Order Number: [id number] ?? Exam Date: 07/12/2025 ??09:56 ?Report Date: [...] growth. ? Impression dictated by: Mariusz Malloy Jr., D.O. ??07/12/2025 2:57 PM ? Dictation Location: [facility]-22 ? Electronically authenticated by: [id number] ??Y ?? Date: 07/12/2025 ??14:57 ? Dictated By: ?Mariusz Malloy M.D. ? Signed By: ?07/12/25 1500 ? DD/ 1457 ? TD/TT: ? Senior Water/Wastewater Engineer: Procedure Note Radiology, Radiologist, - 07/12/2025 [place] [address] Ultrasound Report Signed Patient: ELLEN RAMIRES R#: [id number] : 1990Acct:[id number] Age/Sex: 35 / FADM Date: 07/12/25 Loc: US Attending Dr: Israel Broderick D.O. Ordering Physician: Israel Broderick D.O. Date of Service: 07/12/25 Procedure(s): US OB growth Accession Number(s): [id number] cc: Israel Broderick D.O.; Judy Yepez NP The [address] [address] Patient Name: ELLEN RAMIRES MRN: [id number]:[id number] date: 1990 Sex: F Assigned Patient Location: [place] [facility] Accession/Order Number: [id number] Exam Date: 07/12/2025 09:56 Report Date: 07/12/2025 [...] Jr., D.O. 07/12/2025 2:57 PM Dictation Location: [place] [address] Electronically authenticated by: [id number] Y Date: 4:57 Dictated By: Mariusz Malloy M.D. Signed By:07/12/25 1500 DD/ 1457 TD/TT: Senior Water/Wastewater Engineer: Authorizing ProviderResult TypeResult StatusCorey Davie DOCLINISYNC IMAGINGFinal Result documented in this encounter Visit Diagnoses Not on filedocumented in this encounter Care Teams Team MemberRelationshipSpecialtyStart DateEnd Date Judy Caal PCP - [facility]02/20/24documented as of this encounter
--- OUTSIDE RECORDS SUMMARY | 2025-07-23 10:02 | XMS_ITS | Encounter Summary ---
Author Organization [facility] Address [address] [place] [address] Care Team Providers Care Ladies Suit Operator Name Role Phone Judy Caal Unavailable Unavailable Encounter Details DateTypeDepartmentCare Team (Latest Contact Info)Tkzddvvazni48/18/2025amboo flowsheet [facility] [address] [facility] [place] [address] Bethany Simon PA [address] [place], [facility] Social History Tobacco UseTypesPacks/DayYears UsedDateSmoking Tobacco: Never AssessedPHQ-2 AnswerDate RecordedPatient Health Questionnaire-2 Yofkm49109/01/2024 Estimated Date of DndnhrclZreotkyoXkt78/11/2026Based on last menstrual period of 12/26/2024Sex and Gender InformationValueDate RecordedSex Assigned at BirthNot on fileLegal SwyVlzmas08/06/2024 9:48 AM EDTGender IdentityNot on fileSexual OrientationNot on filedocumented as of this encounter Plan of Treatment DateTypeDepartmentCare Team (Latest Contact Info)Zqfwqfmoolc07/03/2025 11:20 AM ESTRoutine [facility] [address] [facility] [place] [address] Caesar Broderick DO [address] [place], [place] [address] 12/16/2025 3:00 PM EDTOffice Visit [facility] [address] [facility] [place] [phone] Caesar Broderick DO [address] [place] [address] documented as of this encounter Visit Diagnoses Not on filedocumented in this encounter Care Teams Team MemberRelationshipSpecialtyStart DateEnd Date Judy Caal PCP - [facility]02/20/24documented as of this encounter
--- OUTSIDE RECORDS SUMMARY | 2025-07-23 10:06 | XMS_ITS | CCD ---
Author Organization [facility] Care Team Providers Care Python Developer Name Role Phone Pinky Singh Unavailable Judy Caal Unavailable Unavailable Unavailable Primary Care Provider Unavailabl e Services, [facility] Primary Care Provider Caesar Broderick DO Attending Provider Caesar Broderick Attending Unavailable Davie, Caesar Admitting Unavailable White ANIMAL NUTRITIONIST, June A Unavailable Unavailable ROBBIE LOPEZ Attending Unavailable Services, [facility] Primary Care Provider SERVICES, [facility] Unava ilable MILLIE VILLAGRAN Attending Unavailable SERVICES, [facility] Unava ilable FRANCIE ABRAMS Attending Unavailable DAVIE, CAESAR R Referring Unavailable SERVICES, [facility] Unava ilable DAVIE, CAESAR R Referring Unavailable SERVICES, [facility] Unava ilable YORDY CRUZ Attending Unavailable DAVIE, CAESAR R Referring Unavailable SERVICES, [facility] Unava ilable DAVIE, CAESAR R Referring Unavailable SERVICES, [facility] Unava ilable YORDY CRUZ Attending Unavailable DAVIE, CAESAR R Referring Unavailable SERVICES, [facility] Unava ilable Services, [facility] Primary Care Provider DEWEY BRODERICKY Attending Unavailable [...] 125 mg oral tablet (2 sources)Penicillin-class AntibacterialStart: 60-43-8072odsn 1 tablet by mouth twice dailyAmoxicillin-Pot Clavulanate 875-125 mg tablet Active 1 TAB PO Twice daily November 24, 2023 12:00amaspirin 81 mg delayed release oral tablet (4 sources)Platelet Aggregation Inhibitor, Nonsteroidal Anti-inflammatory Drug take 1 tablet by mouth in the morningaspirin 81 mg Take 1 tablet (81 mg total) by mouth in the morning. Activecholecalciferol 0.01 mg oral tablet (20 sources)Vitamin DStart: 05-72-1091zdyexwbqdgbbhfl 10 mcg (400 unit) tablet 2 tablets (800 Units total) in the morning. 01/26/2024 ActiveStart: 01-26-2024 End: 69-87-6051Hfsxufelsdydnrj 10 MCG (400 UNIT) chewable tablet 1 (one) time each day at the same time Discontinued (Therapy completed) End: 70-01-4578iyxj 2 tablets by mouth once dailyD-400 10 MCG (400 UNIT) tablet TAKE 2 TABLETS BY MOUTH ONCE DAILY FOR 30 DAYS 03/28/2025 Discontinuedclobetasol propionate 0.0005 mg/mg topical ointment (3 sources)CorticosteroidStart: 05-17-2025 End: 56-68-3081dqgedraguH (TEMOVATE) 0.05 % ointment Indications: Acute palmoplantar pustular psoriasis , Chronic hypertension affecting , 20 weeks gestation of Apply a thin layer to the affected areas twice daily. 30 g 05/17/2025 05/31/2025 ActiveclomiPHENE citrate 50 mg oral tablet (3 sources)Estrogen Agonist/AntagonistStart: 11-12-2024 End: 59-61-8990isux 2 tablets by mouth once dailyclomiPHENE (Clomid) 50 MG tablet Indications: Encounter for fertility planning , PCOS (polycystic ovarian syndrome) , Fallopian tube disorder Take 2 tablets (100 mg) by mouth Daily for 5 days 10 tablet 11/12/2024 11/17/2024 Activefluticasone propionate 0.05 mg/actuat metered dose nasal spray (4 sources)CorticosteroidStart: 11-24-2023 End: 27-83-0213lwcdyjtcivc (Flonase) 50 MCG/ACT nasal spray Daily 11/24/2023 04/10/2024 Discontinued (Other)Start: 34-17-3763egpe 1 spray(s) nasal route once dailyFluticasone Propionate 50 mcg/actuation spray,suspension Active 2 SPRAY INTRANASAL Daily November 24, 2023 12:00am administer into each nostril labetalol hydrochloride 100 mg oral tablet (14 sources)beta-Adrenergic BlockerStart: 06-24-2025 End: 74-17-0294hzuq 1 tablet by mouth once dailylabetalol (Normodyne) 100 MG tablet Indications: Hypertension Take 1 tablet (100 mg) by mouth Daily30 tablet 3 06/24/2025 07/24/2025 ActiveStart: 05-16-2025 End: 97-45-8240ntwk 1 tablet by mouth once at bedtimelabetalol (Normodyne) 200 MG tablet Indications: Second trimester (HHS-HCC) , Gestational hypertension, antepartum (HHS-HCC) TAKE 1 TABLET (200 MG) BY MOUTH IN THE MORNING AND AT BEDTIME 60tablet 2 05/16/2025 05/23/2025 Discontinued (Ineffective)Start: 04-11-2025 End: 33-07-4917utdd 1 tablet by mouth once in the morninglabetalol (Normodyne) 200 MG tablet Indications: Second trimester (HHS-HCC) , Gestational hypertension, antepartum (HHS-HCC) Take 1 tablet (200 mg) by mouth in the morning and 1 tablet (200mg) before bedtime. 60 tablet 04/11/2025 05/11/2025 Active End: 12-74-4926jmjd 1 tablet by mouth in the morning, then take 1 tablet by mouth at bedtimelabetaloL (NORMODYNE) 200 mg tablet Take 1 tablet (200 mg total) by mouth in the morning and 1 tablet (200 mg total) before bedtime. 05/17/2025 Discontinuedmagnesium oxide 400 mg oral tablet (15 sources)Start: 03-28-2025 End: 16-93-5849slif 1 tablet by mouth once dailymagnesium oxide (Mag-Ox) 400 MG tablet Indications: Second trimester (HHS-HCC) , Acute nonintractable headache, unspecified headache type Take 1 tablet (400 mg) by mouth Daily 30 tablet 6 03/28/2025 04/27/2025 ActivemetFORMIN hydrochloride 500 mg oral tablet (20 sources)BiguanideStart: 56-90-2817bcuVKSDHC (Glucophage) 500 mg tablet 1 tablet (500 mg). 05/22/2024 ActiveStart: 04-10-2024 End: 38-07-5280dxpo 1 tablet by mouth every twenty-four hours at mealtime metFORMIN XR (Glucophage-XR) 500 MG 24 hr tablet Indications: PCOS (polycystic ovarian syndrome) , Abnormal uterine bleeding (AUB) Take 1 tablet (500 mg) by mouth in the evening. Take with meals Do not crush, chew, or split. 30 tablet 11 04/10/2024 03/01/2025 Discontinued (Therapy completed) End: 90-36-7420dnbp 1 tablet by mouth once daily at breakfastmetFORMIN XR (GLUCOPHAGE XR) 500 mg 24 hr tablet Take 1 tablet (500 mg total) by mouth daily with breakfast. 05/17/2025 DiscontinuedNIFEdipine 30 mg osmotic 24 hr extended release oral tablet (20 sources)Dihydropyridine Calcium Channel BlockerStart: 06-84-6135ysrw 2 tablets by mouth every twenty-four hours at bedtimeNIFEdipine XL (PROCARDIA XL) 30 mg 24 hr tablet Indications: Chronic hypertension affecting , 20 weeks gestation of Take 2 tablets (60 mg total) by mouth in the morning and at bedtime. 60 tablet 2 06/18/2025 ActiveStart: 05-30-2025 End: 44-78-8374hhqs 1 tablet by mouth once daily in the morningNIFEdipine XL (Procardia XL) 60 MG 24 hr tablet Indications: Chronic hypertension affecting ([facility]) Take 1 tablet (60 mg) by mouth Daily Take 1 tablet in the am. Do not crush, chew, or split. 30 tablet 3 05/30/2025 05/30/2026 ActiveStart: 55-00-8430rimg 1 tablet by mouth once dailyProcardia XL 30 MG 24 hr tablet Take 30 mg by mouth Daily 05/17/2025 ActiveStart: 05-17-2025 End: 73-28-1103dxhk 1 tablet by mouth every twenty-four hours at bedtime NIFEdipine XL (PROCARDIA XL) 30 mg 24 hr tablet Indications: Chronic hypertension affecting , 20 weeks gestation of Take 1 tablet (30 mg total) by mouth in the morning and at bedtime. 60 tablet 2 05/17/2025 06/18/2025 DiscontinuedpredniSONE 20 mg oral tablet (2 sources)Start: 46-52-3822eksk 1 tablet by mouth twice dailyPrednisone 20 mg tablet Active 20 MG PO Twice daily 10 November 24, 2023 12:00amprenatal 115/iron/folic acid ( 19 ORAL) (4 sources)take 1 tablet by mouth in the morningprenatal 115/iron/folic acid ( 19 ORAL) Take 1 tablet by mouth in the morning. Activesertraline 25 mg oral tablet (20 sources)Serotonin Reuptake InhibitorStart: 88-20-7053evnr 1 tablet by mouth in the morningsertraline (ZOLOFT) 25 mg tablet Indications: Anxiety disorder affecting , antepartum Take1 tablet (25 mg total) by mouth in the morning. 30 tablet 1 06/18/2025 ActiveStart: 66-27-8440xdev 1 tablet by mouth in the morningsertraline (ZOLOFT) 50 mg tablet Indications: Anxiety disorder affecting , antepartum Take1 tablet (50 mg total) by mouth in the morning. 30 tablet 1 06/18/2025 ActiveStart: 11-06-2024 End: 73-03-1868krcm 2 tablets by mouth once dailysertraline (Zoloft) 25 MG tablet Take 50 mg by mouth 1 (one) time each day at the same time 11/06/2024 ActiveStart: 11-06-2024 End: 66-31-0414lklo 3 tablets by mouth at bedtimesertraline (ZOLOFT) 25 mg tablet Take 3 tablets (75 mg total) by mouth before bedtime. 11/06/2024 DiscontinuedStart: 11-06-2024 End: 69-18-8710bqvwwxrqiu (Zoloft) 25 MG tablet 1 (one) time each day at the same time 11/06/2024 ActiveStart: 08-04-2023 End: 79-60-3391ooof 1 tablet by mouth once dailysertraline (Zoloft) 50 MG tablet Take 50 mg by mouth Daily 08/04/2023 04/10/2024 Discontinued (Other)sertraline (ZOLOFT) 25 mg tablet Take by mouth daily. Active Completed/Discontinued Medications MedicationDrug Class(es)DatesSig (Normalized)Sig (Original)omeprazole 20 mg delayed release oral capsule (20 sources)Proton Pump InhibitorStart: 01-24-2024 End: 92-89-3210udop 1 capsule by mouth in the morningomeprazole (PriLOSEC) [address] capsule Take 20 mg by mouth in the morning. 01/24/2024 03/28/2025 Dis continued Problems Active Problems Problem ClassificationProblemDateDocumented DateEpisodic/ChronicAbdominal pain (3 sources)Pain in female pelvis; Translations: [Pelvic and perineal pain] 95-17-7558MvuomjduLiddblq disorders (1 source)Anxiety disorder, unspecified; Translations: [Anxiety disorder, unspecified]Onset: 75-40-8674VvtrbvuOloaccpauqrye and procreative management (10 sources)Patient encounter status; Translations: [Encounter for other procreative management]92-06-5185IlruxmfbEaficijn; including migraine (4 sources)Acute headache; Translations: [Acute nonintractable headache, unspecified headache type]16-41-0557OrvmxcccXbaxwynajuao complicating ; childbirth and the puerperium (18 sources)Hypertension complicating ; Translations: [Unspecified maternal hypertension, second trimester]Onset: hronic Hypertension complicating ; childbirth and the puerperium (20 sources)Hypertension AND/OR vomiting complicating childbirth AND/OR puerperium; Translations: [Gestational [-induced] hypertension without significant proteinuria, unspecified trimester]Onset: 04-25-2025 19-90-9262TbsssmaqLtpkvvyjmfsle and screening for infectious disease (6 sources)Contact with and (suspected) exposure to other viral communicable diseases; Translations: [Contact with or exposure to other viral diseases] EpisodicMenstrual disorders (2 sources)Amenorrhea; Translations: [Amenorrhea, unspecified]49-33-0744Xytsmnl Nutritional deficiencies (20 sources)Vitamin D deficiency; Translations: [Vitamin D deficiency, unspecified]Onset: 282615-82-8761FhwdlotMbkm wounds of extremities (2 sources)Laceration without foreign body of right thumb without damage to nail, initial encounter; Translations: [Laceration of finger]Onset: 04-29-2025 EpisodicOther aftercare (2 sources)Postoperative visit; Translations: [Encounter for other specified surgical aftercare]22-15-8139BtmnrrwmWahvl and unspecified benign neoplasm (1 source)Pigmented skin lesion ; Translations: [Melanocytic nevi, unspecified] 08-82-9376AhljaqaoOivil circulatory disease (1 source)H/O: hypertension; Translations: [Personal history of other diseases of the circulatory system]92-67-0367KehbdbakUsmey complications of (5 sources)Maternal obesity complicating , childbirth and the puerperium, antepartum; Translations: [Obesity complicating , unspecified trimester]88-51-0971WcudpwhJgxvl complications of (2 sources)Obesity complicating , unspecified trimester; Translations: [Obesity complicating , unspecified trimester]Onset: 45-54-4331Rdhlbgf Other complications of (17 sources)History of pre-eclampsia; Translations: [Supervision of with other poor reproductive or obstetric history, unspecified trimester]Onset: 998097-04-1625IjrnybmdYpyus complications of (2 sources)Other mental disorders complicating , unspecified trimester; Translations: [Mental disorders of mother, antepartum condition or complication] Onset: 077095-88-5128GkcccpwdHlwbm endocrine disorders (20 sources)Polycystic ovary syndrome; Translations: [Polycystic ovarian syndrome]Onset: 013692-21-9310AopztpzFcexo female genital disorders (4 sources)Abnormal uterine bleeding; Translations: [Abnormal uterine and vaginal bleeding, unspecified]35-38-6549UyjaqieToldi female genital disorders (2 sources)Abnormal uterine and vaginal bleeding, unspecified; Translations: [Abnormal uterine and vaginal bleeding, unspecified]Onset: 44-94-7347Vljbwok Other inflammatory condition of skin (5 sources)Pustular psoriasis of palms and soles; 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]56-89-7565IrxlrtuMuyjs inflammatory condition of skin (2 sources)Pustulosis palmaris et plantaris; 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]Onset: 60-80-1366DbqkrveZvnhi nutritional; endocrine; and metabolic disorders (2 sources)Morbid (severe) obesity due to excess calories; Translations: [Morbid (severe) obesity due to excess calories]Onset: 87-74-2662SjwopotYrxci and delivery including normal (16 sources); Translations: [Encounter for supervision of normal , unspecified, unspecified trimester]81-07-0395AtmqyewyUsslv screening for suspected conditions (not mental disorders or infectious disease) (2 sources)Alpha-fetoprotein blood test status; Translations: [Encounter for screening for raised alphafetoprotein level]56-39-7887NwnmudiyAfzdx upper respiratory infections (1 source)Chronic sinusitis, unspecified; Translations: [Unspecified sinusitis (chronic)]69-35-8456YqjkkknDpuur upper respiratory infections (3 sources)Sore throat symptom; Translations: [Acute pharyngitis, unspecified] 49-23-4848FtvqwdkwCaynussj codes; unclassified (2 sources)History of laparoscopy; Translations: [Other specified postprocedural states]35-29-9870ErisgvnpXrbwflra codes; unclassified (1 source)Gestation period, 9 weeks; Translations: [9 weeks gestation of ]00-63-3432EcjxkzagFkjypjxr codes; unclassified (2 sources)Gestation period, 13 weeks; Translations: [13 weeks gestation of ]94-68-7068RknhrtkgGotuzqcv codes; unclassified (2 sources)Gestation period, 15 weeks; Translations: [15 weeks gestation of ]91-12-9830YkmsisgnZonlmqne codes; unclassified (2 sources)Gestation period, 17 weeks; Translations: [17 weeks gestation of ]71-26-2953ZaiesvtjRnrlyyuf codes; unclassified (2 sources)Gestation period, 20 weeks; Translations: [20 weeks gestation of ]94-38-4733PycfeadjKdhtmuzn codes; unclassified (2 sources)Gestation period, 22 weeks; Translations: [22 weeks gestation of ]18-15-8193DmecgacqVhnmgmyq codes; unclassified (2 sources)Gestation period, 21 weeks; Translations: [21 weeks gestation of ]00-33-7708VjtqzpsyZfvwrlee codes; unclassified (2 sources)Gestation period, 23 weeks; Translations: [23 weeks gestation of ]51-66-8815PbqtvfyyKsonigxf codes; unclassified (1 source)20 weeks gestation of ; Translations: [20 weeks gestation of ]Onset: 52-54-5336QhglmyjbIomrhocu codes; unclassified (2 sources)Gestation period, 25 weeks; Translations: [25 weeks gestation of ]88-26-5345XqjsgjzmXtllyzyeadpk (1 source)gHTNOnset: 05-17-2025 Past or Other Problems Problem ClassificationProblemDateDocumented DateEpisodic/ChronicCardiac dysrhythmias (8 sources)Palpitations; Translations: [Palpitations]Onset: 843214-28-9792 EpisodicNonspecific chest pain (3 sources)Chest pain, unspecified; Translations: [Chest pain]Onset: 11-03-2024 EpisodicOther female genital disorders (20 sources)Fallopian tube disorder; Translations: [Noninflammatory disorder of ovary, fallopian tube and broadligament, unspecified]Onset: 149856-16-4909 EpisodicUnclassified (2 sources)Patient encounter qhdaor75-49-5259Iteuyppkfexa (1 source)Onset: 231737-76-6405Sioxjodjshjy (1 source)Anxiety disorder affecting , jpfheffcze70-64-9118Svkwvnl tract infections (3 sources)Acute cystitis; Translations: [Acute cystitis without hematuria] Onset: 779907-44-5323SmnzgplgQiyhb infection (1 source)COVID-19 Results Test NameValueInterpretationReference RangeFacilityUrinalysis macro (dipstick) panel (U)on 15-18-5954Xrbbpdpka, UANegativeNegative - 4(70) +++ mg/dLNOMS HealthcareBlood, UANegativeNegative [...] mg/dLNOMS HealthcareNOMS HealthcareUrinalysis macro (dipstick) panel (U)on 60-53-4300Xceqnhlzc, UA NegativeNegative - 4(70) +++ mg/dLNOMS HealthcareBlood, [...] mg/dLNOMS HealthcareNOMS HealthcareUrinalysis macro (dipstick) panel (U)on 54-20-5198Phhcmjuta, UANegativeNegative - 4(70) +++ mg/dL NOMS HealthcareBlood, UANegativeNegative - 50 Surjit/mcLNOMS HealthcareClarity, UA ClearNOMS HealthcareColor, UAYellowNOMS HealthcareGlucose, UANegativeNegative - 1999(110) ++++ mg/dLNOMS HealthcareInterpretation and review of laboratory resultsNormalNOMS HealthcareKetones, UANegativeNegative - 160(16) ++++ mg/dLNOPR HealthcareLeukocytes, UANegativeNegative - 500+++ Kaleigh/mcLNOMS HealthcareNitrite, UANegativeNegative - PositiveNOMS HealthcarepH, UA65 - 9NOMS HealthcareProtein, UANegativeNegative - 2000(20) ++++ mg/dLNOMS HealthcareSpec Grav, UA1.0251 - 1.03NOMS HealthcareUrobilinogen, UA0.20.2 - 12 mg/dLNOMS HealthcareNOMS HealthcareAFP, SERUM, OPEN SPINA BIFIDAon 36-57-5816IGC MOM0.85.[facility] AFP VALUE38.2 ng/mL.[facility] HospitalCOMMENT:Comment.[facility] HospitalComment on above:Gema Ortez, Ph.D., [facility] Director References: Available Upon Request. Multiples Of Median Cutoffs For AFP Elevations Kumar 2.5 Black 2.8 IDD 2.0 Twins 4.5 Abbreviation Definitions IDD - Insulin Dep Diabetes OSBR - Open Spina Bifida Risk For further inquiries contact [employer] [facility] at [phone]. This test was developed and its performance characteristics determined by [employer]. It has not been cleared or approved by the Food and Drug Administration. Performed at: [facility] [address], [place] [id number] Pleater Hand: Jesus Saleh [facility], Phone: [phone] GEST. AGE ON COLLECTION DATE21.1. weeksNOPR HealthcareGESTAT. AGE BASED ONLMP. [facility] HospitalComment on above:Recalculations are not recommended when gestational dating by LMP and ultrasound are within 10 days. INSULIN DEP DIABETESNo.[facility] HealthcareINTERPRETATIONComment.[facility] Comment on above:Interpretation: Screen Negative This [...] Customer Services to discuss available options. The [employer] recommends amniocentesis be offered to women age 35 and older. MATERNAL AGE AT EDD33.5. yrNOPR HealthcareMULTIPLE GESTATIONNo.[facility] Healthcare OSBR RISK 1 [id number].NOMS HealthcareRACECaucasian.[facility] HealthcareRESULTSReport. [facility] HealthcareTEST RESULTS:Negative.[facility] LicgexuyuqYNTUFM533. lbsNOMS HealthcareN N LMP [id number] 2 9 N 1 [address] White/ CLINISYNCNOPR HealthcareUnlisted Lab Teston 41-72-1344Ujudv Free Cell Dnalow riskProWestern Reserve Hospital SystemProChillicothe HospitalB-TYPE NATRIURETIC PEPTIDEon 77-80-7685Tbxssjdkdbt peptide B (Bld) [Mass/Vol]46 pg/mLNormal<=100ProWooster Community HospitalComment on above:Performed By: #### BNP #### [facility] (TT) [address] [place] [address] VIRUrinalysis macro (dipstick) panel (U)on 30-73-9607Hueyoqhqt, UANegativeNegative - 4(70) +++ mg/dLNOPR HealthcareBlood, UANegativeNegative - 50 Surjit/mcLNOPR HealthcareClarity, UAClearNOPR HealthcareColor, UAYellowNOPR HealthcareGlucose, UANegativeNegative - 2000(110) ++++ mg/dLOzarks Community Hospital Interpretation and review of laboratory resultsNormalNOPR HealthcareKetones, UA NegativeNegative - 160(16) ++++ mg/dLUTAH VALLEY HOSPITAL HealthcareLeukocytes, UANegative Negative - 500+++ [place]aleigh/mcLNOPR HealthcareNitrite, UANegativeNegative - Positive [facility] HealthcarepH, UA65 - 9NOPR HealthcareProtein, UANegativeNegative - 2000(20) ++++ mg/dLNOPR HealthcareSpec Grav, UA1.0151 - 1.03NOPR HealthcareUrobilinogen, UA1.00.2 - 12 mg/dLNOSaint John's Saint Francis Hospital HealthcareTBH TOTAL PROTEIN 24 HOUR URINEon 53-48-3579GQOFP PROTEIN URINE RANDOM<6.0NINF - 11.9 mg/dLOzarks Community Hospital TOTAL VOLUME 24 HOUR EUFPI1981oL/24hrNOPR HealthcareCLINISYNCNOMS HealthcareALL CBC WITH AUTO DIFFon 71-73-9263JWVGSKKFP ABSOLUTE VSOP3YFTV Healthcare Basophils/100 WBC (Bld)0.2 %0.2 - 2.0 %NOMNevada Regional Medical CenterEosinophils/100 WBC (Bld) 2.9 %0.9 - 7.0 %[facility] HospitalErythrocyte distribution width (RBC) [Ratio]12.3 %11.0 - 15.0 %[facility] HospitalIMMATURE GRANULOCYTES ABS AUTO0.09HighNOLiberty HospitalImmature granulocytes/100 WBC (Bld)0.7 %High0.0 - 0.5 %[facility] Interpretation and review of laboratory resultsAbnormalOzarks Community Hospital LYMPHOCYTES ABSOLUTE QDRJ3UBXWLiberty HospitalLymphocytes/100 WBC (Bld)15.4 %Low20.5 - 60.0 %[facility] HealthH (RBC) [Entitic mass]31.3 pg26.7 - 34.0 pgCarondelet HealthHC (RBC) [Mass/Vol]33.6 g/dL29.9 - 35.2 g/dLCarondelet HealthV (RBC) [Entitic vol]93.2 fL81.0 - 99.0 fLOzarks Community HospitalMONOCYTES ABSOLUTE AUTO0.5NOLiberty HospitalMonocytes/100 WBC (Bld)4.1 %1.7 - 12.0 %[facility] HospitalNEUTROPHILS ABSOLUTE AUTO9.9HighNOLiberty HospitalNeutrophils/100 WBC (Bld)76.7 %High43.0 - 75.0 %[facility] HospitalPlatelet mean volume (Bld) [Entitic vol]10.2 fL9.5 - 13.5 fLOzarks Community HospitalTBH EO #0.4NOLiberty HospitalTBH WVU554KDFMEllis Fischel Cancer Center RBC3.8 LowNOLiberty HospitalTB RXG16XyhvHOELOzarks Community HospitalCLINISYNCAPTTon 57-88-9466nKLF Coag (Bld) [Time]26.5 [facility] without diffon 04-17-2025 Platelets (Bld) [#/Vol]251 10*3/uLTriHealth McCullough[facility] Mcv (Fl) By Automated Count93.2Pro[facility] SystemLaboratory - Hematology and Cell countson 29-85-8482Sypkfxtmec (Bld) [Volume fraction]35.4 %[facility] Hemoglobin (Bld) [Mass/Vol]11.9 g/dLNOPR HealthcareNo Panel Informationon 70-33-9315DZAD HealthcareUrinalysis macro (dipstick) panel (U)on 04-11-2025 Bilirubin, UANegativeNegative - 4(70) +++ mg/dLNOMS HealthcareBlood, UANegative Negative - 50 Surjit/mcLNOMS HealthcareClarity, UAClearNOMS HealthcareColor, UA YellowNOMS HealthcareGlucose, UANegativeNegative - 2000(110) ++++ mg/dLNOPR HealthcareInterpretation and review of laboratory resultsNormalUTAH VALLEY [facility]ITAL Healthcare Ketones, UANegativeNegative - 160(16) ++++ mg/dLNOMS HealthcareLeukocytes, UA NegativeNegative - 500+++ [place]/mcLNOPR HealthcareNitrite, UANegativeNegative - PositiveNOMS HealthcarepH, UA65 - 9NOMS HealthcareProtein, UANegativeNegative - 2000(20) ++++ mg/dLNOPR HealthcareSpec Grav, UA1.0151 - 1.03NOPR Healthcare Urobilinogen, UA1.00.2 - 12 mg/dLNOPR HealthcareNOPR HealthcareUrinalysis macro (dipstick) panel (U)on 16-39-4238Hnoynpgsm, UANegativeNegative - 4(70) +++ mg/dL NOMS HealthcareBlood, UANegativeNegative - 50 Surjit/mcLNOMS HealthcareClarity, UA ClearNOMS HealthcareColor, UAYellowNOMS HealthcareGlucose, UANegativeNegative - 2000(110) ++++ mg/dLNOPR HealthcareInterpretation and review of laboratory resultsAbnormalNOMS HealthcareKetones, UANegativeNegative - 160(16) ++++ mg/dL NOMS HealthcareLeukocytes, UAPositiveNegative - 500+++ [place]/mcLNOMS Healthcare Comment on above:2+Nitrite, UANegativeNegative - PositiveNOMS HealthcarepH, UA65 - 9NOMS HealthcareProtein, UANegativeNegative - 2000(20) ++++ mg/dLNOMS HealthcareSpec Grav, UA1.021 - 1.03NOPR HealthcareUrobilinogen, UA1.00.2 - 12 mg/dLCrossroads Regional Medical Center HealthcareALL CBC WITH AUTO DIFFon 72-04-9119UTJODVHOF ABSOLUTE AUTO0.1NOMS HealthcareBasophils/100 WBC (Bld)0.5 %0.2 - 2.0 %NOMNevada Regional Medical CenterEosinophils/100 WBC (Bld)4 %0.9 - 7.0 %[facility] HospitalErythrocyte distribution width (RBC) [Ratio]12.2 %11.0 - 15.0 %[facility] HospitalIMMATURE GRANULOCYTES ABS AUTO0.08HighOzarks Community HospitalImmature granulocytes/100 WBC (Bld) 0.6 %High0.0 - 0.5 %[facility] HospitalInterpretation and review of laboratory resultsAbnormalOzarks Community HospitalLYMPHOCYTES ABSOLUTE AUTO2.6NOLiberty Hospital Lymphocytes/100 WBC (Bld)18.4 %Low20.5 - 60.0 %[facility] HealthH (RBC) [Entitic mass]31.5 pg26.7 - 34.0 pgCarondelet HealthHC (RBC) [Mass/Vol]34.1 g/dL29.9 - 35.2 g/dLCarondelet HealthV (RBC) [Entitic vol]92.4 fL81.0 - 99.0 fLOzarks Community HospitalMONOCYTES ABSOLUTE AUTO0.6Ozarks [facility] HospitalMonocytes/100 WBC (Bld)4.3 % 1.7 - 12.0 %[facility] HospitalNEUTROPHILS ABSOLUTE AUTO10.1HighOzarks Community Hospital Neutrophils/100 WBC (Bld)72.2 %43.0 - 75.0 %[facility] HospitalPlatelet mean volume (Bld) [Entitic vol]10.2 fL9.5 - 13.5 fLOzarks Community HospitalTB EO #0.6[facility] TBH YZV806UWKZEllis Fischel Cancer Center RBC3.94LowSaint Francis Medical Center WBC13.9HighOzarks Community HospitalCLINISYNCCBC without diffon 67-75-3124Zewtffwni (Bld) [#/Vol]261 10*3/uLOhioHealth Shelby HospitalRb Mcv (Fl) By Automated Count92.4OhioHealth [facility] HospitalDrug Screen, Urineon 10-33-9291Zktsokcgrnd/MethamphetamineNegative [facility] HospitalBarbituratesNegativeOhioHealth Shelby Hospital BenzodiazepinesNegativeOhioHealth Shelby HospitalCocaine MetaboliteNegative [facility] HospitalMethadoneNegativeOhioHealth Shelby HospitalOpiatesNegative [facility] HospitalOxycodoneNegativeOhioHealth Shelby HospitalPhencyclidine NegativeOhioHealth Shelby HospitalThc Marijuana, UrineNegativeOhioHealth Shelby HospitalHBV surface Ag IA Qlon 23-11-6334Nuwhuuoko B Surface AntigenNegative [facility] HospitalHCV Ab IA Qlon 41-28-9374DOG Ab Ql (S)Non-Reactive [facility] HospitalHIV 1+2 Ab+HIV1 p24 Ag IA Qlon 63-91-8280WMT 1&2 AB/AG Non-ReactiveOhioHealth Shelby HospitalHemoglobin A1con 14-76-2448FvE1s (Bld) [Mass fraction]5.1 %4.0 - 6.0 %[facility] HospitalLaboratory - Hematology and Cell countson 36-91-9922Djbshrcqpu (Bld) [Volume fraction]36.4 %[facility] Hemoglobin (Bld) [Mass/Vol]12.4 g/dLOzarks Community HospitalNo Panel Informationon 11-57-3855PDJJ HealthcareRubella IGG immune statuson 75-50-3964Mwdluzt immune IgGIMMUNEOhioHealth Shelby HospitalT. pallidum IgG+IgM IA Ql (S)Ordered By: Christina Bertrand on 16-55-5230XvljlfriRdv-ReactiveOhioHealth Shelby HospitalType and screenon 79-79-2147Sfr/Rh(D)PositiveOhioHealth Shelby HospitalHCG ( test) Ql (U)on 69-10-7470Ksvniyyebkslud and review of laboratory resultsAbnormLehigh Valley Hospital - Pocono Preg Test, UrPositiveNegativeNOLiberty HospitalNOPR HealthcareUS OB TRANSVAGINALon 46-06-1889OO OB TRANSVAGINALFINDINGS: A single intrauterine gestational sac [...] No LMP recorded.Urinalysis macro (dipstick) panel (U)on 72-32-9848Hbegczoyo, UA NegativeNegative - 4(70) +++ mg/dLNOMS HealthcareBlood, UANegativeNegative - 50 Surjit/[facility] Medical CenterNOPR HealthcareClarity, UAClearNOMS HealthcareColor, UAYellowNOMS HealthcareGlucose, UANegativeNegative - 2000(110) ++++ mg/dLNOPR Healthcare Interpretation and review of laboratory resultsNormalNOMS HealthcareKetones, UA NegativeNegative - 160(16) ++++ mg/dLNOPR HealthcareLeukocytes, UANegative Negative - 500+++ Kaleigh/mcLNOPR HealthcareNitrite, UANegativeNegative - Positive NOMS HealthcarepH, UA75 - 9NOMS HealthcareProtein, UANegativeNegative - 2000(20) ++++ mg/dLNOPR HealthcareSpec Grav, UA1.0051 - 1.03NOMS HealthcareUrobilinogen, UA0.20.2 - 12 mg/dLNOMS HealthcareNOMS HealthcareALL PROGESTERONEon 01-18-2025 PROGESTERONE8.7 ng/mL.[facility] HealthcareComment on above:Follicular phase 0.1 - 0.9 Luteal phase 1.8 - 23.9 Ovulation phase 0.1 - 12.0 First trimester 11.0 - 44.3 Second trimester 25.4 - 83.3 Third trimester 58.7 - 214.0 Postmenopausal 0.0 - 0.1 Performed at: [address] [id number] Pleater Hand: Yobany Blount PhD, Phone: [phone] [facility] SystemPATHOLOGY REQUEST FOR LAB CORPon 20-54-0845YGOCIHGLT REQUEST FOR LAB CORPNOMS HealthcareComment on above:See report. Scanned copy available in EMR.SKIN SPECIMENFIRLehigh Valley Health NetworkALL PROGESTERONEon 67-81-4916BVHYYLYJKADI26.9 ng/mL.NOMS HealthcareComment on above:Follicular phase 0.1 - 0.9 Luteal phase 1.8 - 23.9 Ovulation phase 0.1 - 12.0 First trimester 11.0 - 44.3 Second trimester 25.4 - 83.3 Third trimester 58.7 - 214.0 Postmenopausal 0.0 - 0.1 Performed at: [address] [id number] Pleater Hand: Yobany Blount PhD, Phone: [phone] [facility] SystemPathology Request for Lab Corpon 15-41-4703Athmsayym Request for Lab CorpNoSelect Specialty Hospital Physician GroupComment on above:Order Comment: SKIN SPECIMENResult Comment: See report. Scanned copy available in EMR. PERFORMED BY: [place] [address] PATHOLOGIST BULL GANG SUPERVISOR ANAHI TRAN M.D.Performed By: #### PATH TO [facility] #### [place] [address] USAIGP,APTIMA HPV,AGE GDLNon 99-92-3088TVE GDLN ACOG TESTING Note.NOMS HealthcareComment on above:TESTS RESULT FLAG UNITS REF RANGE LAB Clinician Provided Cytology Information Source.............Cervix;Endocervix No. of containers..01 ThinPrep Vial Age Alberto FORREST Marjorie... 32 FLAG LEGEND: L-Low Normal,H-High Normal,LL-Alert Low,HH-Alert High <-Panic Low,>-Panic High,A-Abnormal,AA-Critical Abnormal Performed at: 01 =[address] [address] Vonnie Woodard MD, HPV APTIMANegativeNegativeNOMS HealthcareComment on above:This nucleic acid amplification test detects fourteen high- risk HPV types (16,18,31,33,35,39,45,51,52,56,58,59,66,68) without differentiation. Performed at: =[address] [id number] Pleater Hand: Vonnie Woodard MD, Phone: [phone] Performed at: [address] [id number] Pleater Hand: Vonnie Woodard MD, Phone: [phone] IGP, APTIMA HPV, RFX 16/18,45Note.NOMS HealthcareComment on above:TESTS RESULT FLAG UNITS REF RANGE LAB DIAGNOSIS: 02 NEGATIVE FOR INTRAEPITHELIAL LESION OR MALIGNANCY. Specimen adequacy: 02 Satisfactory for evaluation. Endocervical and/or squamous metaplastic cells (endocervical component) are present. Performed by: 02 Quiana Vyas, Aviation Electrician (ASCP) . 02 Note: Note 02 The [...] <-Panic Low,>-Panic High,A-Abnormal,AA-Critical Abnormal Performed at: [address] [address] Vonnie Woodard MD, BRUSH-SPATULA CERVIX ENDOCERVIX CLINISYNCNOLiberty HospitalALL PROGESTERONEon 65-82-6480IPZUXIDJMKAC27.2 ng/mL.[facility] HealthcareComment on above:Follicular phase 0.1 - 0.9 Luteal phase 1.8 - 23.9 Ovulation phase 0.1 - 12.0 First trimester 11.0 - 44.3 Second trimester 25.4 - 83.3 Third trimester 58.7 - 214.0 Postmenopausal 0.0 - 0.1 Performed at: [facility]coSt[facility] [address] [place], [place] [id number] Pleater Hand: Yobany Blount PhD, Phone: [phone] CLINISYNCNOThe Rehabilitation Institute of St[facility] AND AUTO DIFFon 75-67-1066RMTTZVOR BASOPHIL0.1 X10E9/LNormal0.0-0.2PBlanchard Valley Health SystemComment on above:Performed By: #### CBCGavin, CMP, 60639-9, 00728-1, THYR #### [facility] ([id number]) [address] [place] [address] 21350DOLVZJOQ NEUTROPHIL6.9 X10E9/LHigh1.5-6.6ProHouston Methodist Sugar Land HospitalComment on above:Performed By: #### CBCA, [facility], , 70000-0, THYR #### [facility] ([id number]) [address] [place] [address] 44200Kpqznuaqh/100 WBC (Bld)1.1 %NormalParma Community General Hospital Comment on above:Performed By: #### CBCA, [facility], , 30807-6, THYR #### [facility] ([id number]) [address] [place] [address] 09052Dmhazfvrqjj (Bld) [#/Vol]0.3 10*3/uLNormal0.0-0.4Parma Community General HospitalComment on above:Performed By: #### CBCA, [facility], , 77247-8, THYR #### [facility] ([id number]) [address] [place] [address] 89594Mknhmvfdzel/100 WBC (Bld)2.3 %NormalParma Community General Hospital Comment on above:Performed By: #### CBCA, CMP, , 04076-4, THYR #### [facility] ([id number]) [address] [place] [address] 72623Zkxhigfymww distribution width (RBC) [Ratio]12.6 %Normal 11.5-15.0Parma Community General HospitalComment on above:Performed By: #### CBCA, CMP, , 94496-9, THYR #### [facility] ([id number]) [address] [place] [address] 90629Cuqxkgwbkp (Bld) [Volume fraction]40.4 %Nlzodt70-66BevSgbczvHouston Methodist Sugar Land HospitalComment on above:Performed By: #### KARSON, CMP, 84930-2, 21909-7, THYR #### [facility] ([id number]) [address] [place] [address] 23279Jpxrcqhypp (Bld) [Mass/Vol]13.7 g/oPWypczi18.7-15.5PBlanchard Valley Health SystemComment on above:Performed By: #### KARSON, CMP, 08962-6, 29731-0, THYR #### [facility] ([id number]) [address] [place] [address] 17117Aggqmgrwqwb (Bld) [#/Vol]3.6 10*3/uLHigh1.0-3.5PBlanchard Valley Health SystemComment on above:Performed By: #### KARSON, CMP, 92915-4, 23956-8, THYR #### [facility] ([id number]) [address] [place] [address] 79199Wptteqayzox/100 WBC (Bld)31.6 %NormalParma Community General Hospital Comment on above:Performed By: #### CBCGavin, CMP, 85121-9, 12670-6, THYR #### [facility] ([id number]) [address] [place] [address] 75889MVY (RBC) [Entitic mass]30.9 xbWynopp72-26UybJvpytcHouston Methodist Sugar Land HospitalComment on above:Performed By: #### CBCA, CMP, 65203-4, 86729-1, THYR #### [facility] ([id number]) [address] [place] [address] 82757BFUF (RBC) [Mass/Vol]34.0 g/pLDotaai67-16KouTthttoParma Community General HospitalComment on above:Performed By: #### CBCA, CMP, 84368-7, 06781-3, THYR #### [facility] ([id number]) [address] [place] [address] 00893BII (RBC) [Entitic vol]91 zWJfmrum60-117JgbFococm [facility]remont HospitalComment on above:Performed By: #### CBCA, CMP, 74823-3, 58396-3, THYR #### [facility] ([id number]) [address] [place] [address] 32023Fiujsxtma (Bld) [#/Vol]0.6 10*3/uLNormal0-0.9Parma Community General HospitalComment on above:Performed By: #### CBCA, CMP, 49821-5, 82664-5, THYR #### [facility] ([id number]) [address] [place] [address] 02810Gvrwldbel/100 WBC (Bld)5.4 %[facility] Comment on above:Performed By: #### CBCA, CMP, 38180-9, 02147-0, THYR #### [facility] ([id number]) [address] [place] [address] 22095Dqoxtfqfsns/100 WBC (Bld)59.6 %[facility] Comment on above:Performed By: #### CBCA, CMP, 30588-2, 71270-0, THYR #### [facility] ([id number]) [address] [place] [address] 02864Ymczbtyn mean volume (Bld) [Entitic vol]7.9 fLNormal7-12 ProMSan Francisco General HospitalComment on above:Performed By: #### CBCA, CMP, 35303- 9, 99023-8, THYR #### [facility] ([id number]) [address] [place] [address] 69096Kdwkphhyd (Bld) [#/Vol]346 10*3/aGSazvgm838-740DlcFwxgoy [facility]ont HospitalComment on above:Performed By: #### KARSON, CMP, 87176-1, 66425-7, THYR #### [facility] ([id number]) [address] [place] [address] 46831ZBZ COUNT4.44 X10E12/LNormal3.80-5.20[facility] Comment on above:Performed By: #### KARSON, CMP, 35184-0, 16456-7, THYR #### [facility] ([id number]) [address] [place] [address] 18896YKX (Bld) [#/Vol]11.5 10*3/uLHigh4.0-11.0Parma [facility] General HospitalComment on above:Performed By: #### KARSON, CMP, 04212-7, 81421-4, THYR #### [facility] ([id number]) [address] [place] [address] 14123ITBJONSKZKMON METABOLIC PANELon 07-53-9800Mskloxu [Mass/Vol]4.0 g/dLNormal3.2-5.3PBlanchard Valley Health SystemComment on above:Performed By: #### KARSON, CMP, 29411-0, 36740-0, THYR #### [facility] ([id number]) [address] [place] [address] 23143JGE [Catalytic activity/Vol]50 U/CConhny59-427JczDnagqgHouston Methodist Sugar Land HospitalComment on above:Performed By: #### MATTHEWA, CMP, 58052-8, 42717-7, THYR #### [facility] ([id number]) [address] [place] [address] 25237GCR [Catalytic activity/Vol]19 U/LNormal0-31PBlanchard Valley Health SystemComment on above:Performed By: #### LUKAS TY, 42247-7, 76415-2, THYR #### [facility] ([id number]) [address] [place] [address] 37671Zwifw gap [Moles/Vol]11 mmol/LNormal5-15ProHouston Methodist Sugar Land HospitalComment on above:Performed By: #### KARSON, LUKAS, 58480-7, 47023-3, THYR #### [facility] ([id number]) [address] [place] [address] 21786UQW [Catalytic activity/Vol]18 U/LNormal0-41ProHouston Methodist Sugar Land HospitalComment on above:Performed By: #### LUKAS TY, 50833-7, 77585-1, THYR #### [facility] ([id number]) [address] [place] [address] 24798Vlsmbxrzq [Mass/Vol]0.4 mg/dLNormal0.3-1.2PBlanchard Valley Health SystemComment on above:Performed By: #### LUKAS TY, 17725-5, 53138-9, THYR #### [facility] ([id number]) [address] [place] [address] 33561Gqdrrfo [Mass/Vol]9.4 mg/dLNormal8.5-10.5PBlanchard Valley Health SystemComment on above:Performed By: #### KARSON, LUKAS, 58215-8, 81784-3, THYR #### [facility] ([id number]) [address] [place] [address] 81020Shbvqxuc [Moles/Vol]106 mmol/TKafxgf75-358YscJbzsnvHouston Methodist Sugar Land HospitalComment on above:Performed By: #### LUKAS TY, 78053-6, 26044-0, THYR #### [facility] ([id number]) [address] [place] [address] 33947UL9 [Moles/Vol]23 mmol/XQifglt77-10JxnEamediBlanchard Valley Health System Comment on above:Performed By: #### LUKAS TY, 72684-6, 14012-3, THYR #### [facility] ([id number]) [address] [place] [address] 01926Hkncbxxivh [Mass/Vol]0.76 mg/dLNormal0.40-1.00Par[facility] HospitalComment on above:Result Comment: METHOD TRACEABLE TO IDMS STANDARD Performed By: #### LUKAS TY, 85018-9, 23954-8, THYR #### [facility] ([id number]) [address] [place] [address] 52860mKVS (CKD-EPI) NON-RACE DEPENDENT>90Normal>59ProHouston Methodist Sugar Land HospitalComment on above:Result Comment: Reported eGFR is based on the CKD-EPI 2020 equation that does not use a race coefficient.Performed By: #### LUKAS TY, , 40315-7, THYR #### [facility] ([id number]) [address] [place] [address] 20291Uffrabh [Mass/Vol]114 mg/iNDokx62-94EhjUupnruParma Community General Hospital Comment on above:Performed By: #### LUKAS TY, , 76221-8, THYR #### [facility] ([id number]) [address] [place] [address] 55806Qxlzleivi [Moles/Vol]4.1 mmol/LNormal3.5-5.0Par[facility] HospitalComment on above:Performed By: #### LUKAS TY, 13448-9, 59615-3, THYR #### [facility] ([id number]) [address] [place] [address] 18193Drvrsir [Mass/Vol]7.3 g/dLNormal6.0-8.0Par[facility] HospitalComment on above:Performed By: #### CBCGavin, CMP, 53557-8, 37179-5, THYR #### [facility] ([id number]) [address] [place] [address] 13509Fygbwg [Moles/Vol]140 mmol/ZOqqfpy359-032XmiGppggd [facility]remont HospitalComment on above:Performed By: #### KARSON, LUKAS, 12384-7, 00672-9, THYR #### [facility] ([id number]) [address] [place] [address] 33522Azmo nitrogen [Mass/Vol]13 mg/dLNormal5-23Par[facility] HospitalComment on above:Performed By: #### KARSON, LUKAS, 74849-1, 30054-8, THYR #### [facility] ([id number]) [address] [place] [address] 95578Reeymo D-dimer DDU (PPP) [Mass/Vol]on 11-04-2024D DIMER<150 Normal<255Par[facility] General HospitalCommarshfield medical center on above:Result Comment: Results <255 ng/mL DDU: The presence of a VTE can safely be excluded with a negative D-Dimer result and Wells score. A negative result doesn't exclude the possibility of DIC. The test be repeated along with other diagnostic tests if the patient's symptoms persist or worsen. [email or web address]=acaeaPerformed By: #### CBCA, CMP, 52831-5, 25275-6, THYR #### [facility] ([id number]) [address] [place] [address] 00736JYY ( test) Ql (U)on 92-38-4732Qyfl HCG ( test) Ql (U)NegativeNormalNEGProHouston Methodist Sugar Land HospitalComment on above: Performed By: #### 2106-3 #### [facility] ([id number]) [address] [place] [address], [place] [address]OHCMOJBYErt 07-12-1007Kflstvqqd [Mass/Vol]2.3 mg/dLNormal 1.8-2.6ProHouston Methodist Sugar Land HospitalComment on above:Performed By: #### LUKAS TY, 70957-0, 25296-0, THYR #### [facility] ([id number]) [address] [place] [address], [place] [address]FGKBCWL PROFILEon 30-63-7331Szrt T4 [Mass/Vol]0.88 ng/dLNormal 0.61-1.60ProHouston Methodist Sugar Land HospitalComment on above:Performed By: #### LUKAS TY, 78493-0, 30288-1, THYR #### [facility] ([id number]) [address] [place] [address], [place] [address]PCR0.78 uIU/mLNormal0.49-4.67ProHouston Methodist Sugar Land HospitalComment on above:Performed By: #### LUKAS TY, 40036-2, 67001-2, THYR #### [facility] ([id number]) [address] [place] [address] [place] [address]VCT MACROSCOPIC NURon 10-41-3715KOOYIHTUO NURNegativeNormalNEG ProMSan Francisco General HospitalComment on above:Performed By: #### NUM #### [facility] ([id number]) [address] [place] [address], [place] [address]KMIPA/HGB NURTraceAbnormalNEGParma Community General HospitalComment on above:Performed By: #### NUM #### [facility] ([id number]) [address] [place] [address], [place] [address]NAYVTAP NURNegativeNormalNEGParma Community General HospitalComment on above:Performed By: #### NUM #### [facility] ([id number]) [address] [place] [address] 84927DGTIIMH NURNegativeNormalNEGParma Community General HospitalComment on above:Performed By: #### NUM #### [facility] ([id number]) [address] [place] [address] 41618GHWJMTNCT ESTERASE NURSmallAbnormalNEGParma Community General HospitalComment on above:Performed By: #### NUM #### [facility] ([id number]) [address] [place] [address] 86000OMIJRGV NURNegativeNormalNEGParma Community General HospitalComment on above:Performed By: #### NUM #### [facility] ([id number]) [address] [place] [address]84[address]JF NUR6.2Llnpdo9.0-8.5PBlanchard Valley Health SystemComment on above:Performed By: #### NUM #### [facility] ([id number]) [address] [place] [address] 01410UMIINPI NURNegativeNormalNEGParma Community General HospitalComment on above:Performed By: #### NUM #### [facility] ([id number]) [address] [place] [address] [place] [address]BCTRUSNS GRAVITY NUR1.046Ppibem4.003-1.035ProHouston Methodist Sugar Land HospitalComment on above:Performed By: #### NUM #### [facility] ([id number]) [address] [place] [address] 35956HQWJNKJFIUIE NUR0.2 eu/dLNormal<1.1PBlanchard Valley Health System Comment on above:Performed By: #### NUM #### [facility] ([id number]) [address] [place] [address] 93631WH CHEST 1 VWon 82-61-1596GE CHEST 1 VWXR CHEST 1 VW History: Palpitations Exam/Technique: Portable upright AP chest Comparison: 11/12/2022 Findings: There is no active pulmonary or pleural disease displayed. Cardiac and mediastinal contours appear within normal limits on this AP projection. IMPRESSION: No evidence of active pulmonary disease. Finalized by Tres Giron MD on 11/04/2024 1:02 AMNormalKeenan Private Hospitalca [facility] PROGESTERONEon 56-59-5618ICCGAYJXBJYF44.8 ng/mL.[facility] Comment on above:Follicular phase 0.1 - 0.9 Luteal phase 1.8 - 23.9 Ovulation phase 0.1 - 12.0 First trimester 11.0 - 44.3 Second trimester 25.4 - 83.3 Third trimester 58.7 - 214.0 Postmenopausal 0.0 - 0.1 Performed at: [facility] [employer] [id number] Pleater Hand: Yobany Blount PhD, Phone: [phone] [facility] HOSPITALWolongeLee's Summit Hospital PROGESTERONEon 96-57-8902HGLQKTJJFTOX34.3 ng/mL.[facility]OMS HealthcareComment on above:Follicular phase 0.1 - 0.9 Luteal phase 1.8 - 23.9 Ovulation phase 0.1 - 12.0 First trimester 11.0 - 44.3 Second trimester 25.4 - 83.3 Third trimester 58.7 - 214.0 Postmenopausal 0.0 - 0.1 Performed at: [facility] [employer] [id number] Pleater Hand: Yobany Blount PhD, Phone: [phone] [facility] PROGESTERONEon 55-19-6237KNNVZCLLJTIS4.5 ng/mL.NOMS HealthcareComment on above:Follicular phase 0.1 - 0.9 Luteal phase 1.8 - 23.9 Ovulation phase 0.1 - 12.0 First trimester 11.0 - 44.3 Second trimester 25.4 - 83.3 Third trimester 58.7 - 214.0 Postmenopausal 0.0 - 0.1 Performed at: [facility] [employer] [id number] Pleater Hand: Yobany Blount PhD, Phone: [phone] [facility]AL HOSPITALApplied OptoelectronicsUniversity of Tennessee Medical Center PROGESTERONEon 07-78-9443OBHKVOGLZOGS28.8 ng/mL.[facility] HealthcareComment on above:Follicular phase 0.1 - 0.9 Luteal phase 1.8 - 23.9 Ovulation phase 0.1 - 12.0 First trimester 11.0 - 44.3 Second trimester 25.4 - 83.3 Third trimester 58.7 - 214.0 Postmenopausal 0.0 - 0.1 Performed at: [facility] [address] [id number] Pleater Hand: Yobany Blount PhD, Phone: [phone] [facility] CBC WITH AUTO DIFFon 25-90-2702QIHGEQDZV ABSOLUTE AUTO0.1NOMS HealthcareBasophils/100 WBC (Bld)0.6 %0.2 - 2.0 %[facility] Eosinophils/100 WBC (Bld)2.8 %0.9 - 7.0 %NOM HealthcareErythrocyte distribution width (RBC) [Ratio]12.1 %11.0 - 15.0 %NOM HealthcareHematocrit (Bld) [Volume fraction]40.6 %36.0 - 48.0 %[facility] Community HospitalHemoglobin (Bld) [Mass/Vol]13.5 g/dL 12.0 - 16.0 g/dLOzarks Community HospitalIMMATURE GRANULOCYTES ABS AUTO0.02NOMS [facility] Immature granulocytes/100 WBC (Bld)0.3 %0.0 - 0.5 %NOMNevada Regional Medical CenterLYMPHOCYTES ABSOLUTE AUTO1.8NOMS HealthcareLymphocytes/100 WBC (Bld)23.0 %20.5 - 60.0 %[facility] (RBC) [Entitic mass]30.6 pg26.7 - 34.0 pgNOJohn J. Pershing VA Medical CenterHC (RBC) [Mass/Vol]33.3 g/dL29.9 - 35.2 g/dLOzarks Community HospitalMCV (RBC) [Entitic vol]92.1 fL 81.0 - 99.0 fLNOLiberty HospitalMONOCYTES ABSOLUTE AUTO0.5NOMS [facility] Monocytes/100 WBC (Bld)6.6 %1.7 - 12.0 %NOM HealthcareNEUTROPHILS ABSOLUTE AUTO 5.3NOMS HealthcareNeutrophils/100 WBC (Bld)66.7 %43.0 - 75.0 %[facility] Platelet mean volume (Bld) [Entitic vol]9.8 fL9.5 - 13.5 fLNOMS [facility] EO #0.2[facility] CenterTBH [id number] [facility] RBC4.41[facility] WBC8.0 NOMS HealthcareCLINISYNCNOMS HealthcareUS PELVIS W/ TRANSVAGINALon [id number], [place] [address] Ultrasound Report Signed Patient: ELLEN RAMIRES MR#: [id number] : 1990 Acct:[id number] Age/Sex: 34 / F ADM Date: 04/24/24 Loc: US Attending Dr: Caesar Broderick D.O. Ordering Physician: Caesar Broderick D.O. Date of Service: 04/24/24 Procedure(s): US pelvis w/ transvaginal Accession Number(s): [id number] cc: Caesar Broderick D.O.; Sabiha Aviles [place] [address] Patient Name: ELLEN RAMIRES MRN: [id number] date: 1990 Sex: F Assigned Patient Location: US Current Patient Location: Accession/Order Number: [id number] Exam Date: 04/24/2024 14:00 Report Date: 04/25/2024 [...] Dean M.D. Signed By: 04/25/2437 DD/ TD/TT: Furniture Mover:TBHRadiology, Radiologist, - 04/25/2024 [place] [address] Ultrasound Report Signed Patient: ELLEN RAMIRES MR#: [id number] : 1990 Acct:[id number] Age/Sex: 34 / F ADM Date: 04/24/24 Loc: US Attending Dr: Caesar Broderick D.O. Ordering Physician: Caesar Broderick D.O. Date of Service: 04/24/24 Procedure(s): US pelvis w/ transvaginal Accession Number(s): [id number] cc: Caesar Broderick D.O.; Sabiha Aviles [employer] [facility] [place] [id number] Patient Name: ELLEN RAMIRES MRN: [id number] date: 1990 Sex: F Assigned Patient Location: Current Patient Location: Accession/Order Number: [id number] Exam Date: 04/24/2024 14:00 Report Date: 04/25/2024 [...] M.D. Signed By: 04/25/2437 DD/ 3 TD/TT: Furniture Mover: [facility] HospitalRadiology Study observation (narrative)[facility] HospitalUS PELVIS W/ TRANSVAGINALOrdered By: Radiologist Radiology on 99-35-9985QGIROzarks Community Hospital Work Phone: aLL CBC WITH AUTO DIFFon [id number] ABSOLUTE AUTO0.1[facility] HealthcareBasophils/100 WBC (Bld)0.5 %0.2 - 2.0 %[facility] Eosinophils/100 WBC (Bld)2.8 %0.9 - 7.0 %[facility] HospitalErythrocyte distribution width (RBC) [Ratio]12.0 %11.0 - 15.0 %[facility] HospitalHematocrit (Bld) [Volume fraction]39.7 %36.0 - 48.0 %[facility] HospitalHemoglobin (Bld) [Mass/Vol]13.4 g/dL 12.0 - 16.0 g/dLOzarks Community HospitalIMMATURE GRANULOCYTES ABS AUTO0.03[facility] Immature granulocytes/100 WBC (Bld)0.3 %0.0 - 0.5 %[facility] HospitalInterpretation and review of laboratory resultsAbnormalNOLiberty HospitalLYMPHOCYTES ABSOLUTE AUTO2.9N[facility]S [facility] CenterLymphocytes/100 WBC (Bld)24.4 %20.5 - 60.0 %[facility] (RBC) [Entitic mass]30.7 pg26.7 - 34.0 pgCarondelet HealthHC (RBC) [Mass/Vol]33.8 g/dL29.9 - 35.2 g/dLCarondelet HealthV (RBC) [Entitic vol]91.1 fL 81.0 - 99.0 fL[facility] HealthcareMONOCYTES ABSOLUTE AUTO0.6[facility] Monocytes/100 WBC (Bld)5.2 %1.7 - 12.0 %[facility] HealthcareNEUTROPHILS ABSOLUTE AUTO 8.0HighNOPR HealthcareNeutrophils/100 WBC (Bld)66.8 %43.0 - 75.0 %[facility] HealthcarePlatelet mean volume (Bld) [Entitic vol]10.1 fL9.5 - 13.5 fLOzarks Community HospitalTBH EO #0.3[facility]S HealthcareTB ZJP225CCME [facility] CenterTB RBC4.36[facility] CenterTBH WBC12.0HighNOPR HealthcareCLINISYNCNOMS HealthcarePOCT EKGOrdered By: Sheyla Powell on 63-90-1384EcpZlylcyMercy Health Clermont HospitalNo Panel Information Ordered By: Pinky Singh on 41-38-6452Kucgt Strep (POC)[facility] For RehabilitationCytology Cervical or vaginal smear or scraping studyon 11-19-2022 [facility] HealthcareCOVID/FLU/RSV RT-PCRon [id number]-CoV-2 (COVID-19) RNA PEACE+probe Ql (Unsp spec)PositiveNort Inquirly Other COVID/FLU/RSV RT-PCRNegativeNort Inquirly Other Vital Signs Date TimeVital SignValuePerforming PadmhfdouFjrbqlqu35-72-9055 13:42-0500Body mass index (BMI) [Ratio]43.33 kg/x2Cgfdr Davie DO Work Phone: [facility] HospitalBlmxuhjhig49-19-2529 13:42-0500Body ftmoke213.28 kgCorey Davie DO Work Phone: NOLiberty HospitalYpdujcanax90-95-8094 13:42-0500Diastolic blood ejbzzedo59 mm[Hg]Caesar Davie DO Work Phone: [phone] [place], [place] [address]Xcdexxewit76-20-5450 13:42-0500Systolic blood bsulfjuw161 mm[Hg]Caesar Davie DO Work Phone: 1(419)[address] [place], [place] 0820410-15-2025 09:03-0400Diastolic blood ifdgrhma76 mm[Hg]Rody Uyen SENIOR FINANCIAL CONSULTANT Work Phone: 1(419)[facility] [place], [place] [address]Sxocojzqbc81-32-3832 09:03-0400Systolic blood mvsyvuuc204 mm[Hg]Rody Uyen SENIOR FINANCIAL CONSULTANT Work Phone: 1(419)[address] [place] [address]-15-2025 09:02-0400Body mass index (BMI) [Ratio]42.99 kg/y2Lbapsvjq Uyen SENIOR FINANCIAL CONSULTANT Work Phone: 1(700)[address] [place], [place] 0820410-15-2025 09:02-0400Body rbvuju569.25 kgKristina Uyen SENIOR FINANCIAL CONSULTANT Work Phone: 1(419)[address] [place], [place] 0820410-09-2025 16:31-0400Body mass index (BMI) [Ratio]43.49 kg/c7Xwytkxfj Uyen SENIOR FINANCIAL CONSULTANT Work Phone: 1(192)[address] [place], [place] 0820410-09-2025 16:31-0400Body jyfjtg615.73 kgKristina Uyen SENIOR FINANCIAL CONSULTANT Work Phone: 1(714)[facility] [place], [place] [address]Clblwfmqhg31-05-6586 16:31-0400Diastolic blood jklwjfku54 mm[Hg]Rody Uyen SENIOR FINANCIAL CONSULTANT Work Phone: 1(419)[address] [place], [place] 0820410-09-2025 16:31-0400Systolic blood egequuwj445 mm[Hg]Rody Uyen SENIOR FINANCIAL CONSULTANT Work Phone: 1(728)[address] [place], [place] 0820410-02-2025 15:07-0400Body mass index (BMI) [Ratio]43.03 kg/c2Oorpztyc Uyen SENIOR FINANCIAL CONSULTANT Work Phone: 1(419)[address] [place], [place] 0820410-02-2025 15:07-0400Body .37 kgKristina Uyen SENIOR FINANCIAL CONSULTANT Work Phone: 1(076)[address] [place], [place] 0820410-02-2025 15:07-0400Diastolic blood aghbtkro35 mm[Hg]Rody Qiu SENIOR FINANCIAL CONSULTANT Work Phone: 1(760)[address] [place], [place] 0820410-02-2025 15:07-0400Systolic blood ijrrwnsj778 mm[Hg]Rody Qiu SENIOR FINANCIAL CONSULTANT Work Phone: 1(419)[address] [place], [place] 0820409-26-2025 07:51-0400Body winagq715.7 cmYordy Cruz MD Work Phone: 1(419)[address] [place], [place] 8047809-26-2025 07:51-0400Body mass index (BMI) [Ratio]42.96 kg/m2Yordy Cruz MD Work Phone: 1(419)[address] [place], [place] 8047809-26-2025 07:51-0400Body .14 kgYordy Cruz MD Work Phone: 1(419)[address] [place], [place] 8047809-26-2025 07:51-0400Diastolic blood ojdxxsfg44 mm[Hg]Yordy Cruz MD Work Phone: 1(419)[address] [place], [place] 8047809-26-2025 07:51-0400Heart rate 87 /Glenna Cruz MD Work Phone: 1(419)[address] [place], [place] 8047809-26-2025 07:51-0400Systolic blood gpopaobm583 mm[Hg]Yordy Cruz MD Work Phone: 1(664)[address] [place], [place] 8047809-04-2025 11:30-0400Body mass index (BMI) [Ratio]42.88 kg/v1Fizcr Davie DO Work Phone: 1(826)[facility] [place], [place] [address]Akfczyzoyb08-73-7528 11:30-0400Body aearfy363.91 kgCorey Davie DO Work Phone: 1(291)[address] [place], [place] 0820409-04-2025 11:30-0400Diastolic blood rnpnwrfy29 mm[Hg]Caesar Davie DO Work Phone: 1(894)[address] [place], [place] 0820409-04-2025 11:30-0400Systolic blood mm[Hg]Caesar Davie DO Work Phone: 1(758)[address] [place], [place] 0820408-21-2025 11:00-0400Body mass index (BMI) [Ratio]42.63 kg/r3Xsxrb Davie DO Work Phone: 1(847)536-[address] [place], [place] [address]Ytzlvdqarm47-34-6265 11:00-0400Body uedhqg462.19 kgCorey Davie DO Work Phone: 1(969)985-[address] [place], [place] [address]Scyzthsktx41-07-6124 11:00-0400Diastolic blood fmltiknf05 mm[Hg]Caesar Davie DO Work Phone: 1(299)957-[address] [place], [place] [address]Wqzcesgbyn26-82-1947 11:00-0400Systolic blood xvvhtben159 mm[Hg]Caesar Davie DO Work Phone: 1(898)738-[address] [place], [place] [address]Anicksgofx84-98-8336 11:42-0400Body mass index (BMI) [Ratio]42.29 kg/t8Eowmk Davie DO Work Phone: 1(305)685-[address] [place], [place] [address]Ffpttjrett19-20-4339 11:42-0400Body .15 kgCorey Davie DO Work Phone: 1(153)159-[address] [place], [place] [address]Ybuihcrate70-98-3118 11:42-0400Diastolic blood mm[Hg]Caesar Davie DO Work Phone: 1(872)217-[address] [place], [place] [address]Zrstvcbqzt65-00-1838 11:42-0400Systolic blood bhthirst888 mm[Hg]Caesar Davie DO Work Phone: 1(585)542-[address] [place], [place] [address]Pvaxuyojwy94-92-1865 10:03-0400Body mass index (BMI) [Ratio]41.66 kg/z3MxwfaBronxCare Health System07-11-2025 10:03-0400Body weight 124.29 kgBronxCare Health System07-11-2025 10:03-0400Diastolic blood nxglimjj79 mm[Hg][facility]07-11-2025 10:03-0400Systolic blood xssvuznq112 mm[Hg][facility]05-15-2025 10:52-0400Body vhohfn774.7 Gilmer Lopez MD Work Phone: [facility]05-15-2025 10:52-0400 Body mass index (BMI) [Ratio]40.84 kg/u2JzkyhfRobbie Lopez MD Work Phone: 1(216)[address] [place], [place] 3354105-15-2025 10:52-0400 Body nnqbrorwgtx00.81 [degF]Robbie Lopez MD Work Phone: 1(216)[address] [place], [place] 3354105-15-2025 10:52-0400 Body kebpfg668.84 kgRobbie Lopez MD Work Phone: 1(216)[address] [place], [place] 3354105-15-2025 10:52-0400 Diastolic blood mm[Hg]Robbie Lopez MD Work Phone: 1(216)[address] [place], [place] 3354105-15-2025 10:52-0400 Heart rate73 /minRobbie Lopez MD Work Phone: 1(216)[address] [place], [place] 3354105-15-2025 10:52-0400 Systolic blood mm[Hg]Robbie Lopez MD Work Phone: 1(216)[address] [place], [place] 3354104-29-2025 13:38-0400 Body mass index (BMI) [Ratio]40.35 kg/z9Bjwrh Davie DO Work Phone: 1(421)339-[address] [place], [place] [address]Fcxyhshulf29-65-6900 13:38-0400Body .39 kgCorey Davie DO Work Phone: 1(393)803-[address] [place], [place] [address]Wuyndacsip22-27-6068 13:38-0400Diastolic blood mkkpeqlt16 mm[Hg]Caesar Davie DO Work Phone: 1(829)392-[address] [place], [place] [address]Zkslsisfby97-32-0055 13:38-0400Systolic blood ovjdkpgz559 mm[Hg]Caesar Davie DO Work Phone: 1(114)521-[address] [place], [place] [address]Igwnnoephw12-67-0136 14:36-0400Body mass index (BMI) [Ratio]40.75 kg/n3Bftuu Davie DO Work Phone: 1(734)751-[address] [place], [place] [address]Hzlbedmmiy01-76-4092 14:36-0400Body lldiaj289.56 kgCorey Davie DO Work Phone: 1(197)561-[address] [place] [address]-21-2025 14:36-0400Diastolic blood mm[Hg]Caesar Davie DO Work Phone: 1(832)697-[address] [place], [place] [address]Ypfdzkvwux71-43-9197 14:36-0400Systolic blood gcxyqnlp730 mm[Hg]Caesar Davie DO Work Phone: 1(119)[facility] [place], [place] [address]Ycuuxcdxba76-01-2452 14:03-0400Diastolic blood mm[Hg]Caesar Davie DO Work Phone: 1(908)[facility] [place], [place] [address]Zqldfujcee84-12-8519 14:03-0400Systolic blood mm[Hg]Caesar Davie DO Work Phone: 1(521)[facility] [place], [place] [address]Azqxuahqyf99-55-8610 13:12-0500Body mass index (BMI) [Ratio]40.01 kg/d7Rczee Davie DO Work Phone: 1(613)[facility] [place], [place] [address]Fhidesrqcn34-94-6933 13:12-0500Body fygpuw057.35 kgCorey Davie DO Work Phone: 1(611)[facility] [place], [place] [address]Bnymogjhyt27-01-7412 13:12-0500Diastolic blood jvgnucly71 mm[Hg]Caesar Davie DO Work Phone: 1(486)[facility] [place], [place] [address]Qgcnsbndoe17-96-2112 13:12-0500Systolic blood rijxttou507 mm[Hg]Caesar Davie DO Work Phone: 1(630)[facility] [place], [place] [address]Ukdhzraafd74-31-9619 14:39-0400Body .7 cmCorey Davie DO Work Phone: 1(047)[facility] [place], [place] [address]Fdanqgoxjz75-47-9231 14:39-0400Body mass index (BMI) [Ratio]39.53 kg/w9Cmnwf Davie DO Work Phone: 1(188)[facility] [place], [place] [address]Aaluqruuwa34-57-8854 14:39-0400Body .94 kgCorey Davie DO Work Phone: 1(307)[facility] [place], [place] [address]Jxxalzpovg54-55-3250 14:39-0400Diastolic blood uuirfnkz46 mm[Hg]Caesar Daive DO Work Phone: 1(115)[address] [place], [place] 0820410-21-2024 14:39-0400Systolic blood obyfdvmp647 mm[Hg]Caesar Davie DO Work Phone: [facility] HospitalHophzyrvpo08-08-5566 11:39-0400Body nyxqpv463.84 kgCorey Davie DO Work Phone: [facility] HospitalJdvdtqdkdq87-21-5802 11:39-0400Diastolic blood ytrwmzix65 mm[Hg]Caesar Davie DO Work Phone: [facility] HospitalWfyafuamuj55-95-7109 11:39-0400Systolic blood pvitmpla488 mm[Hg]Caesar Davie DO Work Phone: 1(673)341-[address] [place], [place] [address]Jmfsbjhgmh50-39-2130 09:36-0400Body ypigik791.57 kgCorey Davie DO Work Phone: [facility] HospitalNrohjunahc44-25-0937 09:36-0400Diastolic blood soamhmip16 mm[Hg]Caesar Davie DO Work Phone: 1(097)460-[address] [place], [place] [address]Jyhxbgbokm12-30-0365 09:36-0400Systolic blood yhfzyqlp783 mm[Hg]Caesar Davie DO Work Phone: 1(569)862-[address] [place], [place] [address]Tcwivkjrjb88-04-3608 10:50-0400Body imnhsd071.7 Ji Fraire MD Work Phone: [facility]07-23-2024 10:50-0400Body mass index (BMI) [Ratio]40.66 kg/c5VkdzjkJames Fraire MD Work Phone: 1(610)840-[address] [place], [place] 6764807-23-2024 10:50-0400Body kguzuz042.29 kgJames Fraire MD Work Phone: [facility]07-23-2024 10:50-0400Diastolic blood bzgbeafx73 mm[Hg]James Fraire MD Work Phone: [facility]07-23-2024 10:50-0400Heart rate 83 /minJames Fraire MD Work Phone: [facility]07-23-2024 10:50-3019CmZ0% (BldA) [Mass fraction]98 %James Fraire MD Work Phone: [facility]07-23-2024 10:50-0400Systolic blood fduifegy636 mm[Hg]James Fraire MD Work Phone: [facility]04-04-2024 12:26-0400Body zoorpc753.72 cmChildren[facility]04-04-2024 12:26-0400Body mass index (BMI) [Ratio]42.6 kg/h9NiqjfccjzChildren'S Hospital For Rehabilitation04-04-2024 12:26-0400Body efhoeyvlmwy16.3 [degF][facility]04-04-2024 12:26-0400Body tshuyd156.11 kgChildren'S Hospital For Rehabilitation04-04-2024 12:26-0400Diastolic blood fuiuiequ00 mm[Hg][facility] 11-24-2023 12:26-0400Heart rate75 /[facility] 11-24-2023 12:26-0400Respiratory rate18 /[facility] 11-24-2023 12:26-0871JvF9% (BldA) [Mass fraction]98 %[facility]04-04-2024 12:26-0400Systolic blood jzvobgaw890 mm[Hg][facility]02-20-2023 11:35-0500Body oagmdg171.72 Glendy Singh Other [employer] Other 02-20-2023 11:35-0500Body mass index (BMI) [Ratio] 42.27 kg/p8FooaapPinky Singh Other [employer] Other 02-20-2023 11:35-0500Body wuhwlsortfz05.8 [degF]Pinky Singh Other [employer] Other 02-20-2023 11:35-0500Body kifhxh246.1 kgPinky Singh Other [employer] Other 02-20-2023 11:35-0500Respiratory rate18 /minPinky Singh Other [employer] Other 02-20-2023 11:35-9344GjT9% (BldA) [Mass fraction]98 % Pinky Singh Other [employer] Other Encounters Encounter DateEncounter TypeCare ProviderFacilityStart: 06-24-2025 End: 58-83-9939Mvuptb flowsheetCorey Davie DO Work Phone: [facility]BGYNStart: 06-24-2025 End: 62-44-2407Fvfrct flowsheetCorey Davie DO Work Phone: [facility] [place] [facility]BGYNStart: 06-24-2025 End: 05-31-2562Nbbsxe outpatient visit 15 minutesCorey Davie DO Work Phone: noms [place] OBGYNComment on above:Second trimester ([facility]); 25 weeks gestation of ([facility]); H/O pre-eclampsia in prior , currently ([facility]); Vitamin D deficiency; Chronic hypertension affecting ([facility]); Diabetes mellitus screeningStart: 06-24-2025 End: 04-22-7363wouvshywclVGXWD FAZIONot AvailableStart: 06-18-2025 End: 19-93-2214Clgudu outpatient visit 25 minutesYordy Cruz MD Work Phone: [phone]-Wwndu [facility] Comment on above:Chronic hypertension affecting (Primary Dx); 20 weeks gestation of ; Anxiety disorder affecting , antepartum; Acute palmoplantar pustular psoriasis; Severe obesity due to excess calories affecting , antepartum ([facility]) Start: 06-18-2025 End: 04-81-3770viegyvnzbwECV [facility] HospitalStart: 06-18-2025 End: 11-75-4594szjkupletfGHLNO [facility] HospitalStart: 06-05-2025 End: 24-34-5574Cqgmvx flowsMark Qiu SENIOR FINANCIAL CONSULTANT Work Phone: [facility] [place] [facility]BGYNStart: 06-05-2025 End: 29-57-9698Uglgeu flowsMark Qiu SENIOR FINANCIAL CONSULTANT Work Phone: [facility]BGYNStart: 06-05-2025 End: 04-13-5659Vknaktsn flow Karel Qiu SENIOR FINANCIAL CONSULTANT Work Phone: N[facility]S [facility] OBGYNComment on above:Second trimester ([facility]); 23 weeks gestation of ([facility])Start: 06-05-2025 End: 55-74-1127ndpgdiwnadVZZHPKRQ UYENNot AvailableStart: 05-30-2025 End: 09-37-2248Bkhoqqyd flow Karel Qiu SENIOR FINANCIAL CONSULTANT Work Phone: N[facility] OBGYNComment on above:Chronic hypertension affecting ([facility]) (Primary Dx); Second trimester ([facility]); 22 weeks gestation of ([facility])Start: 05-30-2025 End: 96-97-3994hbibgbhmswSKUDOJFP UYENNot AvailableStart: 05-30-2025 End: 38-54-0159Lvrcxw flowsMark Qiu SENIOR FINANCIAL CONSULTANT Work Phone: [facility] [place] [facility]BGYNStart: 05-30-2025 End: 72-98-8140Ioigqx flowsMark Qiu SENIOR FINANCIAL CONSULTANT Work Phone: [facility]BGYNStart: 05-24-2025 End: 41-37-4751Dedfql OnlyAmy Nikkie LPNMaternal- Medicine at [facility] CampusComment on above:Acute palmoplantar pustular psoriasis (Primary Dx); Chronic hypertension affecting ; Severe obesity due to excess calories affecting , antepartum ([facility]); Hypertension affecting in second trimesterStart: 05-23-2025 End: 06-00-9637ldcrsazvjxUSLGKFRH EBERLYNot AvailableStart: 05-23-2025 End: 44-59-4085Yjdmdvry flow Karel Qiu NP Work Phone: NOCV [facility] OBGYNComment on above:Second trimester ([facility]); 21 weeks gestation of ([facility]); induced hypertension, antepartum ([facility]); Vitamin D deficiency; H/O pre-eclampsia in prior , currently ([facility])Start: 05-23-2025 End: 12-25-7564Jzzruv Jennyfer Qiu NP Work Phone: NOLX [facility]BGYNStart: 05-23-2025 End: 57-93-1437Oxgilb Jennyfer Qiu NP Work Phone: NOSQ [facility]BGYNStart: 05-23-2025 End: 99-09-6873Dbxwlhhda Result EncounterCorey Davie DO Work Phone: noms External Department UnsolicitedStart: 05-17-2025 End: 16-11-0242Fetjdf consultation new/estab patient 62 Hannah Hare MD Work Phone: [phone]-Hqymt [facility] Comment on above:Chronic hypertension affecting (Primary Dx); Acute palmoplantar pustular psoriasis; Severe obesity due to excess calories affecting , antepartum ([facility]); 20 weeks gestation of pregnancyStart: 05-17-2025 End: 46-35-4398Vhoeat OnlyAmy Yoncalla LPNMaternal- Medicine at [facility] CampusComment on above:Acute palmoplantar pustular psoriasis (Primary Dx); Chronic hypertension affecting ; Severe obesity due to excess calories affecting , antepartum ([facility]); Hypertension affecting in second trimesterStart: 04-29-2025 End: 66-29-3573Xjmvvwhsn department patient visitCOMMUNREGENCY HOSPITAL [facility] Centertart: 04-25-2025 End: 82-60-1352Pfwozi flowsheetCorey Davie DO Work Phone: noMS [place] OBGYNStart: 04-25-2025 End: 61-11-6265Rcgehr flowsheetCorey Davie DO Work Phone: noMS [place] OBGYNStart: 04-25-2025 End: 39-68-6350Fjtsut outpatient visit 15 minutesCorey Davie DO Work Phone: noms [facility] OBGYNComment on above:Screening, , for anatomic survey ([facility]); Second trimester ([facility]); 17 weeks gestation of ([facility]); Screen for STD (sexually transmitted disease); Need for maternal serum alpha-protein (MSAFP) screening ([facility]); induced hypertension, antepartum ([facility]); Vitamin D deficiencyStart: 04-25-2025 End: 76-34-3619npifvosdbxYQRMM FAZIONot AvailableStart: 04-23-2025 End: 71-71-8198Odayt Caroline Cruz MD Work Phone: [phone]-Enzyx [facility] Start: 04-21-2025 End: 12-68-6501Ldspqtblx Result EncounterCorey Davie DO Work Phone: noms External Department UnsolicitedStart: 04-21-2025 End: 34-01-9867Acptxpigh Result EncounterCorey Davie DO Work Phone: noms External Department UnsolicitedStart: 04-19-2025 End: 31-12-5374RfnzrrBettina Moise RNMaternal- Medicine at [facility] CampusComment on above:Hypertension affecting in second trimester (Primary Dx)Start: 04-17-2025 End: 81-73-8552Cokniwmmz Result EncounterCorey Davie DO Work Phone: noms External Department UnsolicitedStart: 04-17-2025 End: 29-70-8054Mtoveimst Result EncounterCorey Davie DO Work Phone: no External Department UnsolicitedStart: 04-11-2025 End: 90-32-3346Cxyokb flowsheetCorey Davie DO Work Phone: NOM[facility] [place] OBGYNStart: 04-11-2025 End: 55-68-0983Cmeitg flowsheetCorey Davie DO Work Phone: NO [facility]BGYNStart: 04-11-2025 End: 50-09-4499Liqjsg outpatient visit 15 minutesCorey Davie DO Work Phone: NOMS [place] OBGYNComment on above:15 weeks gestation of ([facility]); Second trimester ([facility]); Acute nonintractable headache, unspecified headache type; BP check; Gestational hypertension, antepartum ([facility]); induced hypertension, antepartum ([facility])Start: 04-11-2025 End: 96-45-0319Mhucjff encounter statusCorey Davie DO Work Phone: NO HealthcareStart: 04-11-2025 End: 04-27-8926ggforpdigmUVAEU FAZIONot AvailableStart: 03-28-2025 End: 90-62-5360Kauszb flowsheetCorey Davie DO Work Phone: NO [place] [facility]BGYNStart: 03-28-2025 End: 70-01-2078Pealjk flowsheetCorey Davie DO Work Phone: no [place] [facility]BGYNStart: 03-28-2025 End: 69-74-3898Kwliyr outpatient visit 15 minutesCorey Davie DO Work Phone: NOM[facility] [place] OBGYNComment on above:13 weeks gestation of ([facility]); Second trimester ([facility]); Acute nonintractable headache, unspecified headache typeStart: 03-28-2025 End: 56-20-1237iphkzteaxpLDHFG FAZIONot AvailableStart: 03-20-2025 End: 25-11-0299Clroopjfo Result EncounterCorey Davie DO Work Phone: noms External Department UnsolicitedStart: 03-20-2025 End: 27-84-0097Aihrcrbkj Result EncounterCorey Davie DO Work Phone: noms External Department UnsolicitedStart: 03-01-2025 End: 70-67-3708Ncpuud outpatient visit 5 minutesFazio Nurse Noms Bcp ObNOMS BCP OBStart: 03-01-2025 End: 40-60-2513ouqqhlwdivXDSNU FAZIONot AvailableStart: 01-16-2025 End: 95-40-1979Qpmgwebua Result EncounterCorey Davie DO Work Phone: noms External Department UnsolicitedStart: 01-16-2025 End: 28-40-0211Zupzerase Result EncounterCorey Davie DO Work Phone: noms External Department UnsolicitedStart: 01-03-2025 End: 70-19-2496Nfihxiy encounter procedureRobbie Lopez MD Work Phone: Steve JaneComment on above:Encounter for preprocedural laboratory examination (Primary Dx); Abnormal uterine bleedingStart: 01-03-2025 End: 91-92-7803Npmmxhp encounter statusRobbie Lopez MD Work Phone: [facility] Work Phone: Start: 01-03-2025 End: 84-23-9000jwjsxkhziwFHLLSO S [facility] Centertart: 01-03-2025 End: 68-61-7462Cbxsvuafn for preprocedural laboratory examinationROBBIE Tapia [facility]: 12-18-2024 End: 36-86-8070[place] Result EncounterCorey Davie DO Work Phone: [facility] External Department UnsolicitedStart: 12-18-2024 End: 29-38-6638Ywhpypmi Result EncounterCorey Davie DO Work Phone: [facility] External Department UnsolicitedStart: 12-18-2024 End: 64-49-6682Leyjgkb encounter procedureCorey Davie DO Work Phone: [facility] OBComment on above:Skin moleStart: 12-18-2024 End: 86-98-7664fvgywoekbtJpllj [facility]Fi[facility] Work Phone: Start: 12-18-2024 End: 70-32-5546Tjfyfpfq ReferredCorey Davie DO Work Phone: [facility] Path Spec [facility] HospStart: 12-17-2024 End: 52-07-6562Jttskqydi Result EncounterCorey Davie DO Work Phone: [facility] External Department UnsolicitedStart: 12-17-2024 End: 19-08-3119Daujxgloa Result EncounterCorey Davie DO Work Phone: [facility] External Department UnsolicitedStart: 12-10-2024 End: 64-68-9027Tspofkx encounter procedureCorey Davie DO Work Phone: [facility] HealthcareStart: 12-10-2024 End: 84-49-0076Bpwezvqg preventive med est patient 18-39 yrsCorey Davie DO Work Phone: [facility] BCP OBComment on above:Well woman exam with routine gynecological examStart: 12-10-2024 End: 42-45-6321uwrudagxomDFMLB FAZIONot AvailableStart: 12-10-2024 End: 71-17-5269Wiwjga flowsheetCorey Davie DO Work Phone: [facility] BCP OBStart: 12-10-2024 End: 71-90-3531Csoyma flowsheetCorey Davie DO Work Phone: [facility] BCP OBStart: 12-10-2024 End: 80-60-5892Gzolxegfb Result EncounterCorey Davie DO Work Phone: [facility] External Department UnsolicitedStart: 11-16-2024 End: 67-80-6148Wqwykyiqj Result EncounterCorey Davie DO Work Phone: [facility] External Department UnsolicitedStart: 11-16-2024 End: 91-64-5181Oggpupmen Result EncounterCorey Davie DO Work Phone: NOMS External Department UnsolicitedStart: 11-12-2024 End: 79-46-7704Iaaxvd outpatient visit 15 minutesCorey Davie DO Work Phone: noMS [facility] OBComment on above:Encounter for fertility planning; Acute cystitis without hematuria; PCOS (polycystic ovarian syndrome); Fallopian tube disorderStart: 11-12-2024 End: 23-52-0510Jwprcr flowsheetCorey Davie DO Work Phone: NOMS BCP OBStart: 11-12-2024 End: 02-26-0661Ikbceo flowsheetCorey Davie DO Work Phone: noms [facility] OBStart: 11-12-2024 End: 29-40-1194zqmkevcuyuILDDX FAZIONot AvailableStart: 11-03-2024 End: 33-55-6876Yqtdiqxqd department patient visitCOMMUNREGENCY HOS[facility] HospitalStart: 10-18-2024 End: 25-22-2096Eyxhkxzdr Result EncounterCorey Davie DO Work Phone: noms External Department UnsolicitedStart: 10-18-2024 End: 48-43-7970Zrcwforad Result EncounterCorey Davie DO Work Phone: noms External Department UnsolicitedStart: 09-17-2024 End: 86-13-0638Wcmfineht Result EncounterCorey Davie DO Work Phone: noms External Department UnsolicitedStart: 09-17-2024 End: 12-62-5432Dbxuekvqa Result EncounterCorey Davie DO Work Phone: noms External Department UnsolicitedStart: 08-16-2024 End: 31-01-5760Eshjbupez Result EncounterCorey Davie DO Work Phone: noms External Department UnsolicitedStart: 08-16-2024 End: 60-76-5640Rirhwwatt Result EncounterCorey Davie DO Work Phone: noms External Department UnsolicitedStart: 07-23-2024 End: 38-56-9159Kdlshi flowsheetCorey Davie DO Work Phone: noms BCP OBStart: 07-23-2024 End: 04-67-5263Vhobhr flowsheetCorey Davie DO Work Phone: NOMA BCP OBStart: 07-23-2024 End: 63-09-2702vkvdwbscbzFTANW FAZIONot AvailableStart: 07-23-2024 End: 00-18-3425Uzaisj outpatient visit 15 minutesCorey Davie DO Work Phone: noms [facility] OBComment on above:PCOS (polycystic ovarian syndrome); Encounter for fertility planningStart: 07-18-2024 End: 91-14-8692Iarmfhxfd Result EncounterCorey Davie DO Work Phone: noms External Department UnsolicitedStart: 07-18-2024 End: 86-71-4423Mufdbqxna Result EncounterCorey Davie DO Work Phone: NOHB External Department UnsolicitedStart: 06-11-2024 End: 72-07-4332Ilndkh follow up visit related to original pxCorey Davie DO Work Phone: NOED [facility] OBComment on above:Postoperative visit; S/P laparoscopic procedureStart: 06-11-2024 End: 45-82-4933Xjjvpv flowsheetCorey Davie DO Work Phone: noms BCP OBStart: 06-11-2024 End: 13-03-3152Iidaud flowsheetCorey Davie DO Work Phone: NOGU BCP OBStart: 06-01-2024 End: 19-91-2823Potsivvml Result EncounterCorey Davie DO Work Phone: NOQJ External Department UnsolicitedStart: 06-01-2024 End: 86-10-4092Kakhpspql Result EncounterCorey Davie DO Work Phone: NOMS External Department UnsolicitedStart: 05-03-2024 End: 85-55-5570Jnskuq outpatient visit 15 minutesCorey Davie DO Work Phone: NOQO [facility] OBComment on above:Pre-op examination; Pelvic pain in female; Fallopian tube disorderStart: 05-03-2024 End: 19-58-2863Qiwkcjrxsksde examination doneCorey Davie DO Work Phone: NOMS HealthcareStart: 04-25-2024 End: 97-99-7639Yrslpjumf Result EncounterCorey Davie DO Work Phone: noms External Department UnsolicitedStart: 04-25-2024 End: 48-68-2840Eizkiejet Result EncounterCorey Davie DO Work Phone: NOFG External Department UnsolicitedStart: 04-24-2024 End: 29-72-0316Cwediinmi Result EncounterCorey Davie DO Work Phone: noms External Department UnsolicitedStart: 04-24-2024 End: 47-44-1930Qwdkdprsd Result EncounterCorey Davie DO Work Phone: NOQG External Department UnsolicitedStart: 04-10-2024 End: 05-31-0135Qvmpuj flowsheetCorey Davie DO Work Phone: NOMS BCP OBStart: 04-10-2024 End: 62-17-3349Brxdji flowsheetCorey Davie DO Work Phone: NOMS BCP OBStart: 04-10-2024 End: 37-55-1078Srniip outpatient visit 15 minutesCorey Davie DO Work Phone: [facility] OBComment on above:Encounter for fertility planning; PCOS (polycystic ovarian syndrome); Pelvic pain in female; Abnormal uterine bleeding (AUB)Start: 03-13-2024 End: 33-65-5000Kgpwvg outpatient visit 15 minutesJames Fraire MD Work Phone: [facility] CardiologyComment on above:Heart palpitations (Primary Dx)Start: 03-12-2024 End: 03-07-9140Dqxwihytf encounterJennshayne Powell [facility]GHProMedica Physicians CardiologyStart: 02-22-2024 End: 56-16-0462Dltff abstractingScanning Provider ExternalProMedica Physicians CardiologyStart: 11-24-2023 End: 02-63-1560qlfuilgkxgNlrflhbkn [facility] Work Phone: Start: 11-24-2023 End: 82-77-5789Cekdvoy encounter procedurePending Sale To [facility] Work Phone: Start: 10-11-2022 End: 91-55-7233iamndycktcFnzjpi Dymond Other [facility] Other Start: 73-38-6648Olqsnt outpatient new 20 minutes Pinky SinghFPG Urgent [facility] Procedures DateProcedureProcedure DetailPerforming ClinicianStart: 09-10-0166Iadzo dip stick/tablet rgnt non-auto w/o micrscpCorey Davie DO Work Phone: Start: 20-35-0068Harwz dip stick/tablet rgnt non-auto w/o micrscpKristina Uyen SENIOR FINANCIAL CONSULTANT Work Phone: Start: 39-98-3638Ijphb dip stick/tablet rgnt non-auto w/o micrscpKristina Uyen SENIOR FINANCIAL CONSULTANT Work Phone: Start: 17-51-6524FUG, SERUM, OPEN SPINA BIFIDACorey Davie DO Work Phone: Start: 52-62-7951Vscma dip stick/tablet rgnt non-auto w/o micrscpCorey Davie DO Work Phone: Start: 56-55-1905WPC TOTAL PROTEIN 24 HOUR URINECorey Davie DO Work Phone: Start: 48-62-6769Jvthu count complete automatedNot In System Ref ProvStart: 48-82-7575YGS CBC WITH AUTO DIFFCorey Davie DO Work Phone: Start: 94-65-1920Mzgey dip stick/tablet rgnt non-auto w/o micrscpCorey Davie DO Work Phone: Start: 72-51-5165Jpnjy dip stick/tablet rgnt non-auto w/o micrscpCorey Davie DO Work Phone: Start: 53-41-7629Zmlgdnba Cathi Cruz MD Work Phone: Start: 03-37-1019Wcnp scrn 1+ class nonchromoNot In System Ref ProvStart: 87-98-8450Bhpmvfptnn glycosylated r4mOsdojtuy Provider ExternalStart: 13-01-9449Ahooznpju c antibodyNot In System Ref ProvStart: 61-02-4153SCM 1&2 AB/AG SCREEN (P24 AG)Not In System Ref ProvStart: 03-20-2025 Iaad ia hepatitis b surface antigenNot In System Ref ProvStart: 03-20-2025 SYPHILIS TOTAL(UNKNOWN SYPHILIS STATUS)Not In System Ref ProvStart: 03-20-2025 TYPE AND SCREENNot In System Ref ProvStart: 42-79-4868DPV CBC WITH AUTO DIFF Caesar Davie DO Work Phone: Start: 03-01-2025 End: 41-12-5012Tbnts dip stick/tablet rgnt non-auto w/o micrscpCorey Davie DO Work Phone: Start: 56-38-2346WZW PROGESTERONECorey Davie DO Work Phone: Start: 46-07-3684EZOTPIUWI REQUEST FOR LAB CORPCorey Davie DO Work Phone: Start: 01-76-9715IKW PROGESTERONECorey Davie DO Work Phone: Start: 54-49-7054BTL,APTIMA HPV,AGE GDLNCorey GOSO DO Work Phone: Start: 22-58-0526Oiofzfqtvpv observation [Identifier] in Cervix by Cyto stainCorey Davie DO Work Phone: Start: 95-05-8124OZD PROGESTERONECorey Davie DO Work Phone: Start: 37-81-0709MAE PROGESTERONECorey GOSO DO Work Phone: Start: 06-55-9141MUB PROGESTERONECorey Davie DO Work Phone: Start: 90-56-0747DVJ PROGESTERONECorey Davie DO Work Phone: Start: 20-24-6888OTA PROGESTERONECorey Davie DO Work Phone: Start: 25-18-4148NLB CBC WITH AUTO DIFFCorey GOSO DO Work Phone: Start: 77-43-7705MQ PELVIS W/ TRANSVAGINALCorey Davie DO Work Phone: Start: 49-51-6940GQJ CBC WITH AUTO DIFFCorey GOSO DO Work Phone: Start: 50-77-7458Wil routine ecg w/least 12 lds w/i&r James Fraire MD Work Phone: Start: 04-70-8701Ybkqt Strep (POC)Start: 11-23-2022 Microscopic observation [Identifier] in Cervix by Cyto stainScanning External Start: 40-41-1278Oerebvkfqco observation [Identifier] in Cervix by Cyto stain Caesar GOSO DO Work Phone: Start: 45-37-0689Oigm cerv/vag auto thin layer prep mnl screenAmy Zackary DIGITAL IMAGING SPECIALIST Work Phone: Plan of Treatment DateCare ActivityDetailAuthorStart: 64-84-4816Qwjliv Vaccines (1 of 2)Zoster Vaccines (1 of 2)[facility] CenterStart: 60-13-2889Gppbwpnbp for malignant neoplasm of cervixNOMS HealthcareStart: 90-02-4012Khoztgxyf for malignant neoplasm of cervixNOMS HealthcareStart: 32-55-8932Qzvvk BMI Screening Adult BMI ScreeningMarymount Hospital SystemStart: 39-28-0772Nryildy Screening Tobacco ScreeningFormerly [facility]s Memorial Hospitaltart: 12-16-2025 End: 30-07-7534Ruyvtul encounter procedureNOMS BCP OBStart: 52-45-9855Qblnkezfg for malignant neoplasm of cervixPap SmearMarymount Hospital SystemStart: 97-24-5539Fvgooafnu for malignant neoplasm of cervixPap SmearNOPR Healthcare Start: 52-98-0155Vqunjfn ScreeningTobacco ScreeningMarymount Hospital SystemStart: 07-09-2025 End: 12-37-0096Apbpkjv encounter ikjztjaii31/18/2025 1:20 PM EST Routine LIANA HEAD [address] [place], [id number] Bethany Simon PA [address] [place] [address] LIANA LAWSONGYNStart: 06-24-2025 End: 74-68-2215LTA panel - Blood by Automated countCBC Lab Routine Diabetes mellitus screening Expected: 06/24/2025 (Approximate), Expires: 06/24/2026[facility] Work Phone: comment on above:Expected: 06/24/2025 (Approximate), Expires: 06/24/2026Start: 06-24-2025 End: 13-90-3197Dmjvmbftnbj of glucose 1 hour after glucose challenge for glucose tolerance testGlucose tolerance, 1 hour Lab Routine Diabetes mellitus screening Expected: 06/24/2025 (Approximate), Expires: 06/24/2026N[facility] HealthcareComment on above:Expected: 06/24/2025 (Approximate), Expires: 06/24/2026Start: 06-24-2025 End: 40-01-2651SV biophysical profile w non stress testUS biophysical profile w non stress test Imaging Routine 25 weeks gestation of ([facility]) H/O pre-eclampsia in prior , currently ([facility]) Chronic hypertension affecting ([facility]) Expected: 06/24/2025 (Approximate), Expires: 12/22/2025N[facility] HealthcareComment on above: Expected: 06/24/2025 (Approximate), Expires: 12/22/2025Start: 06-24-2025 End: 01-73-6159DU for pregnancyUS OB follow up transabdominal approach Imaging Routine H/O pre-eclampsia in prior , currently ([facility]) Chronic hypertension affecting ([facility]) Expected: 06/24/2025, Expi res: 10/22/2025NOPR HealthcareComment on above:Expected: 06/24/2025, Expires: 10/22/2025Start: 06-24-2025 End: 80-31-0785Sizfhqq encounter procedureNOMS [place] OBGYNComment on above: ArrivedStart: 06-18-2025 End: 48-72-1679Vobpwjmazqer consultation with jdompvv8206/18/2025 2:00 PM EDT Telemedicine Maternal- Medicine at [facility] [address] [place] [phone] Yordy Cruz MD [address] [place] [address] [facility]: 06-18-2025 End: 80-80-2412Olhswvr encounter babgjhvwy35/28/2025 8:00 AM EDT Appointment [facility] - Ultrasound [address] [place] [address] [phone] [facility] - UltrasoundStart: 06-05-2025 End: 98-84-2290Aktlbgr encounter procedureNOMS [place] OBGYNComment on above: ArrivedStart: 05-30-2025 End: 18-92-1651Zlaxhur encounter procedureNOMS [place] OBGYNComment on above: ArrivedStart: 05-25-2025 End: 50-38-5377Sjrmb fetoprotein, maternalAlpha fetoprotein, maternal Lab Routine Need for maternal serum alpha-protein (MSAFP) screening ([facility]) Expected: 05/25/2025 (Approximate), Expires: 05/25/2025NOMS HealthcareComment on above:Expected: 05/25/2025 (Approximate), Expires: 05/25/2025Start: 05-23-2025 End: 68-10-1022Groljzu encounter loeqzhbbj54/02/2025 2:30 PM EDT Routine LIANA HEAD [address] [place], [id number] Rody Qiu, SENIOR FINANCIAL CONSULTANT [address] [place] [phone] LIANA LAWSONGYNStart: 05-20-2025 End: 99-15-3361DR MFM with or without consultUS MFM with or without consult Imaging Routine Hypertension affecting in second trimesterExpected: 05/20/2025 (Approximate), Expires: 04/19/2026[facility] Work Phone: comment on above:Expected: 05/20/2025 (Approximate), Expires: 04/19/2026Start: 05-17-2025 End: 49-98-9134WG MFM with or without consultUS MFM with or without consult Imaging Routine 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 Severe obesity due to excess calories affecting , antepartum ([facility]) Hypertension affecting in second trimester Expected: 05/17/2025, Expires: 05/17/2026[facility] Work Phone: Comment on above:Expected: 05/17/2025, Expires: 05/17/2026Start: 05-17-2025 End: 53-60-9866Pacgjzz encounter procedureProWooster [facility] US ImagingStart: 04-25-2025 End: 93-68-0115Fzsruug encounter procedureNOJefferson [facility] ([facility] OBGYNComment on above: ArrivedStart: 11-19-7840UPWRD-19 Vaccine ( season)COVID-19 Vaccine ()[facility] HealthcareStart: 01-18-3908Bgfmvzgnm vaccinationNOMS HealthcareStart: 04-11-2025 End: 70-66-9720Gfxsocs aminotransferase [Enzymatic activity/volume] in Serum or PlasmaALT Lab Routine Gestational hypertension, antepartum ([facility]) induced hypertension, antepartum ([facility]-HCC) Expected: 04/11/2025 (Approximate), Expires: 04/11/2026NOPR HealthcareComment on above:Expected: 04/11/2025 (Approximate), Expires: 04/11/2026Start: 04-11-2025 End: 15-68-1963Nvwuqhscj aminotransferase [Enzymatic activity/volume] in Serum or PlasmaAST Lab Routine Gestational hypertension, antepartum (HHS-HCC) induced hypertension, antepartum ([facility]-HCC) Expected: 04/11/2025 (Approximate), Expires: 04/11/2026NOPR HealthcareComment on above:Expected: 04/11/2025 (Approximate), Expires: 04/11/2026Start: 04-11-2025 End: 53-98-0649ECZ W Auto Differential panel - BloodCBC and differential Lab Routine Gestational hypertension, antepartum (HHS-HCC) induced hy pertension, antepartum (HHS-HCC) Expected: 04/11/2025 (Approximate), Expires: 04/11/2026[facility] HealthcareComment on above:Expected: 04/11/2025 (Approximate), Expires: 04/11/2026Start: 04-11-2025 End: 65-05-0573Eqcnsqykli [Mass/volume] in Serum or PlasmaCreatinine Lab Routine Gestational hypertension, antepartum (HHS-HCC) induced hypertension, antepartum (HHS-HCC) Expected: 04/11/2025 (Approximate), Expires: 04/11/2026[facility] [employer] Work Phone: comment on above:Expected: 04/11/2025 (Approximate), Expires: 04/11/2026Start: 04-11-2025 End: 94-76-6944Qikbdby dehydrogenase [Enzymatic activity/volume] in Serum or Plasma by Lactate to pyruvate reactionLactate dehydrogenase Lab Routine Gestational hypertension, antepartum (HHS-HCC) induced hypertension, antepartum (HHS-HCC) Expected: 04/11/2025, Expires: 04/11/2026[facility] Comment on above:Expected: 04/11/2025, Expires: 04/11/2026Start: 04-11-2025 End: 57-86-4065Mefcvcp, urine, 24 hourProtein, urine, 24 hour Lab Routine Gestational hypertension, antepartum (HHS-HCC) induced hypertension, antepartum (HHS-HCC) Expected: 04/11/2025 (Approximate), Expires: 04/11/2026[facility] HealthcareComment on above:Expected: 04/11/2025 (Approximate), Expires: 04/11/2026Start: 04-11-2025 End: 28-82-7935Ne and pttPt and ptt Lab Routine Gestational hypertension, antepartum (HHS-HCC) induced hypertension, antepartum (HHS-HCC) Expected: 04/11/2025, Expires: 04/11/2026[facility] HealthcareComment on above: Expected: 04/11/2025, Expires: 04/11/2026Start: 04-11-2025 End: 48-50-9249Dsodt [Mass/volume] in Serum or PlasmaUric acid Lab Routine Gestational hypertension, antepartum (HHS-HCC) induced hypertension, antepartum (HHS-HCC) Expected: 04/11/2025 (Approximate), Expires: 04/11/2026[facility] HealthcareComment on above:Expected: 04/11/2025 (Approximate), Expires: 04/11/2026Start: 04-11-2025 End: 56-89-7989Nhks nitrogen [Mass/volume] in Serum or PlasmaBUN Lab Routine Gestational hypertension, antepartum (HHS-HCC) induced hypertension, antepartum ([facility]) Expected: 04/11/2025, Expires: 04/11/2026[facility] Healthcare Comment on above:Expected: 04/11/2025, Expires: 04/11/2026Start: 04-11-2025 End: 10-01-2282Cpirqqe encounter procedureNOMS Aman OBGYNComment on above: ArrivedStart: 03-28-2025 End: 03-88-3163Htjhnsa encounter procedureNOMS BCP OBComment on above:Arrived Start: 26-68-3732Lyenu BMI ScreeningAdult BMI ScreeningMarymount Hospital System Start: 61-06-7313Kpkkasp ScreeningTobacco ScreeningFormerly [facility] Hospitaltart: 03-01-2025 End: 31-53-8397YCL/RhABO/Rh Lab Routine Missed menses , unspecified gestational age ([facility]) Expected: 03/01/2025 (Approximate), Expires: 03/01/2026[facility] HealthcareComment on above:Expected: 03/01/2025 (Approximate), Expires: 03/01/2026Start: 03-01-2025 End: 37-69-5670Scvsd type and Indirect antibody screen panel - BloodType and screen Lab Routine Missed menses , unspecified gestational age ([facility]) Expected: 03/01/2025 (Approximate), Expires: 03/01/2026[facility] Healthcare Work Phone: comment on above:Expected: 03/01/2025 (Approximate), Expires: 03/01/2026Start: 03-01-2025 End: 56-73-2061Nvfhw of abuse panel - Urine by Screen methodRapid drug screen, urine Lab Routine , unspecified gestational age ([facility]) Encounter for supervision of normal first in first trimester ([facility]) Expected: 03/01/2025 (Approximate), Expires: 03/01/2026[facility] HealthcareComment on above: Expected: 03/01/2025 (Approximate), Expires: 03/01/2026Start: 02-03-2025 End: 24-25-4766Ceucueujtyuagrdgfv ( test) [Presence] in UrinePOCT , urine manually resulted Point of Care Testing Routine Encounter for preprocedural laboratory examination Expected: 02/03/2025 (Approximate), Expires: 04/05/2025[facility] Work Phone: Comment on above:Expected: 02/03/2025 (Approximate), Expires: 04/05/2025Start: 02-03-2025 End: 89-54-1928IjlfpkggnwcxyvtVfculwlqzideydm Procedures Routine Abnormal uterine bleeding Expected: 02/03/2025 (Approximate), Expires: 01/03/2026[facility] Service Area Work Phone: Comment on above:Expected: 02/03/2025 (Approximate), Expires: 01/03/2026Start: 02-03-2025 End: 12-99-4260VE.doppler Uterus and Fallopian tubes W saline IUUS sonohysterogram Imaging Routine Abnormal uterine bleeding Expected: 02/03/2025 (Approximate), Expires: 01/03/2026[facility] Work Phone: Comment on above:Expected: 02/03/2025 (Approximate), Expires: 01/03/2026Start: 12-18-2024 End: 98-06-4462Djtnezo encounter usyllzkib33/29/2025 1:30 PM EDT Procedure Visit [facility] [address] [place] [phone] Caesar Broderick, DO [address] [place] [address] N[facility]S BCP OBStart: 60-25-6503CpennluuaAdena Pike Medical Centertart: 12-10-2024 End: 38-89-9185Ognvool encounter procedureNOMS BCP OBComment on above:Arrived Start: 11-12-2024 End: 46-44-9378Uicswxy encounter procedureNOMS BCP OBComment on above:Arrived Start: 07-23-2024 End: 35-93-3661Duvaeif encounter cvgdcanff61/02/2024 1:00 PM EST Office Visit [facility] [address] [place] [address] Caesar Broderick, DO [address] [place] [address] [place] [address] NOMS BCP OBStart: 06-11-2024 End: 98-86-1171Raxzcyy encounter zeusiaofc75/21/2024 2:20 PM EDT Office Visit [facility] [address] [place] [address] Caesar Broderick, DO [address] [place] [address] [place] [address] ArrivedNOMS BCP OBComment on above:ArrivedStart: 06-01-2024 End: 04-17-8478Pnesnlk encounter lyukctmry47/11/2024 8:30 AM EDT Procedure Visit [facility] EXT DEP Caesar Broderick, DO [address] [place] [address] [place] [address] NOMS EXT DEPStart: 05-03-2024 End: 66-29-1059Dqsnvfm encounter swpruaqya52/12/2024 11:40 AM EDT Consult [facility] [address] [place] [address] Caesar Broderick, DO [address] [place] [address] [place] [address] NOMS BCP OBStart: 30-78-1703NOEUY-19 Vaccine ( season)COVID-19 Vaccine ( season)[facility] Start: 86-48-2478Mbuqbnrgv vaccinationNOPR HealthcareStart: 04-10-2024 End: 16-45-9479Kveetpyffxjff hormone (AMH)Antimullerian hormone (AMH) Lab Routine PCOS (polycystic ovarian syndrome) Expected: 04/10/2024 (Approximate), Expires: 04/10/2025N[facility]S HealthcareComment on above:Expected: 04/10/2024 (Approximate), Expires: 04/10/2025Start: 04-10-2024 End: 07-97-2856VQDNYQRV Lab Routine PCOS (polycystic ovarian syndrome) Expected: 04/10/2024 (Approximate), Expires: 04/10/2025N[facility] HealthcareComment on above: Expected: 04/10/2024 (Approximate), Expires: 04/10/2025Start: 04-10-2024 End: 82-98-3307CE for pregnancyUS PELVIS-TRANSVAG IF INDICATED Imaging Routine PCOS (polycystic ovarian syndrome) Pelvic pain in female Expected: 04/10/2024 (Approximate), Expires: 04/10/2025NO HealthcareComment on above:Expected: 04/10/2024 (Approximate), Expires: 04/10/2025Start: 04-10-2024 End: 05-79-1795Ghqktpj encounter wteffpsyf15/20/2024 9:10 AM EDT Office Visit [facility] [address] [place] [address] Caesar Broderick, [address] [place] [address] [facility] OBComment on above:ArrivedStart: 03-13-2024 End: 42-46-0006Ryullwj encounter jithgmoeg33/23/2024 11:00 AM EDT Office Visit [facility] [address] [place] [phone] James Fraire MD [address] [facility] [place], [id number] [facility] CardiologyStart: 97-10-7027Tyieu BMI ScreeningAdult BMI ScreeningProFostoria City Hospitalca Health SystemStart: 06-87-8527Sdkwtpf ScreeningTobacco ScreeningProFostoria City Hospitalca [facility] SystemStart: 13-24-8018FZK Vaccines (1 - 3-dose SCDM series)HPV Vaccines (1 - 3-dose SCDM series)[facility]: 70-66-1799IZhW/Tdap/Td Vaccines (1 - Tdap)DTaP/Tdap/Td Vaccines (1 - Tdap)[facility]: 58-90-4015Zuttqicod for malignant neoplasm of cervixHPV/CotestUnBarberton Citizens Hospital: 47-27-2766SFzQ,Tdap and Td Vaccines (1 - Tdap) DTaP,Tdap and Td Vaccines (1 - Tdap)[facility] SystemStart: 2011 Hepatitis B Vaccines (1 of 3 - 19+ 3-dose series)Hepatitis B Vaccines (1 of 3 - 19+ 3-dose series)[facility]: 88-46-1802Ppoeb BMI Follow Up PlanAdult BMI Follow Up PlanFormerly [facility] Hospitaltart: 2010 Hepatitis C screeningHepatitis C ScreeningUniversity Hospitals [facility] Start: 22-70-7618Pxwciga of varicella vaccinationVaricella Vaccines (1 of 2 - 13+ 2-dose series)[facility] HealthcareStart: 54-38-5860Sttmrdbhq vaccinationVaricella Vaccines (1 of 2 - 13+ 2-dose series)[facility]: 08-98-2181Xgbtnljueo ScreeningDepression ScreeningProFostoria City Hospitaltart: 95-52-7606QLeJ/Tdap/Td Vaccines (1 - Tdap)DTaP/Tdap/Td Vaccines (1 - Tdap)[facility]Start: 81-81-7110GNR Vaccines (1 of 1 - Standard series)MMR Vaccines (1 of 1 - Standard series)[facility]: 42-42-1763UJA screeningHIV ScreeningUnBarberton Citizens Hospital: 49-32-5952Gznjg panelLipid PanelHocking Valley Community Hospital: 59-88-4987Cwderq Adult PhysicalYearly Adult PhysicalUnBerger HospitalBacteria identified in Urine by CultureUrine culture Microbiology Routine Missed menses Ordered: 03/01/2025[facility] HealthcareComment on above:Ordered: 5CBC W Auto Differential panel - BloodCBC and differential Lab Routine PCOS (polycystic ovarian syndrome) Ordered: 04/10/2024[facility] HealthcareComment on above:Ordered: 04/10/2024BC W Auto Differential panel - BloodCBC and differential Lab Routine Missed menses , unspecified gestational age ([facility]) Ordered: 03/01/2025[facility] HealthcareComment on above:Ordered: 03/01/2025HLAMYDIA TRACHOMATIS (GENITO/STI)CHLAMYDIA TRACHOMATIS (GENITO/STI) Lab Routine Screen for STD (sexually transmitted disease) Ordered: 04/25/2025[facility] HealthcareComment on above:Ordered: 04/25/2025 End: 10-86-4022Crrcadesgt, urine, 24 hourCreatinine, urine, 24 hour Lab Routine Chronic hypertension affecting 20 weeks gestation of 1 Occurrences starting 05/17/2025 until 05/17/2026[facility] SystemComment on above:1 Occurrences starting 05/17/2025 until 05/17/2026ytology Cervical or vaginal smear or scraping studyPap Smear Pathology and Cytology Routine Well woman exam with routine gynecological exam Ordered: 12/10/2024[facility] Healthcare Work Phone: comment on above:Ordered: 12/10/2024DHEA-sulfateDHEA- sulfate Lab Routine PCOS (polycystic ovarian syndrome) Ordered: 04/10/2024[facility] HealthcareComment on above:Ordered: 04/10/2024Follicle stimulating hormone Follicle stimulating hormone Lab Routine PCOS (polycystic ovarian syndrome) Ordered: 04/10/2024[facility] HealthcareComment on above:Ordered: 04/10/2024hCG, quantitative, pregnancyhCG, quantitative, Lab Routine PCOS (polycystic ovarian syndrome) Ordered: 04/10/2024[facility] Healthcare Work Phone: comment on above:Ordered: 04/10/2024Hemoglobin A1c/Hemoglobin.total in BloodHemoglobin A1c Lab Routine Pelvic pain in female Abnormal uterine bleeding (AUB) Ordered: 04/10/2024[facility] HealthcareComment on above:Ordered: 04/10/2024Hemoglobin A1c/Hemoglobin.total in BloodHemoglobin A1c Lab Routine Missed menses , unspecified gestational age ([facility]) Ordered: 03/01/2025[facility] HealthcareComment on above:Ordered: 03/01/2025Hepatitis B virus surface Ag [Presence] in Serum or Plasma by ImmunoassayHepatitis B surface antigen Lab Routine Missed menses , unspecified gestational age ([facility]) Ordered: 03/01/2025[facility] HealthcareComment on above:Ordered: 03/01/2025Hepatitis C virus Ab [Presence] in Serum or Plasma by Immunoassay Hepatitis C antibody Lab Routine Missed menses , unspecified gestational age ([facility]) Ordered: 03/01/2025[facility] HealthcareComment on above: Ordered: 03/01/2025HIV-1/HIV-2 antigen/antibody combination immunoassayHIV-1 and HIV-2 antibodies Lab Routine Missed menses , unspecified gestational age ([facility]) Ordered: 03/01/2025[facility] HealthcareComment on above:Ordered: 03/01/2025Human papilloma virus DNA [Presence] in Unspecified specimen by Probe with amplificationHPV DNA probe, amplified Microbiology Routine Well woman exam with routine gynecological exam Ordered: 12/10/2024[facility] HealthcareComment on above:Ordered: 12/10/2024Luteinizing hormoneLuteinizing hormone Lab Routine PCOS (polycystic ovarian syndrome) Ordered: 04/10/2024[facility] HealthcareComment on above:Ordered: 04/10/2024 End: 09-31-2120Dpwowampadg peptide B [Mass/volume] in BloodB-type natriuretic peptide Lab Routine Chronic hypertension affecting 20 weeks gestation of 1 Occurrences starting 05/17/2025 until 05/17/2026[facility] Work Phone: Comment on above:1 Occurrences starting 05/17/2025 until 05/17/2026Natriuretic peptide B [Mass/volume] in BloodB-type natriuretic peptide Lab Routine Chronic hypertension affecting 20 weeks gestation of 05/17/2025 9:54 AM [facility] [Presence] in Unspecified specimen by [facility] with probe detectionNeisseria gonorrhea DNA probe, direct Lab Routine Screen for STD (sexually transmitted disease) Ordered: 04/25/2025[facility] HealthcareComment on above:Ordered: 04/25/2025 End: 00-14-4749Ygqpejt, urine, 24 hourProtein, urine, 24 hour Lab Routine Chronic hypertension affecting 20 weeks gestation of 1 Occurrences starting 05/17/2025 until 05/17/2026[facility]Comment [facility]:1 Occurrences starting 05/17/2025 until 05/17/2026Reagin Ab [Presence] in Serum by RPRRPR Lab Routine Missed menses , unspecified gestational age ([facility]) Ordered: 03/01/2025[facility]:Ordered: 03/01/2025Rubella antibody, IgGRubella antibody, IgG Lab Routine Missed menses , unspecified gestational age ([facility]) Ordered: 03/01/2025[facility] HealthcareComment on above:Ordered: 03/01/2025SURESWAB(R) ADVANCED VAGINITIS PLUS, TMASURESWAB(R) ADVANCED VAGINITIS PLUS, TMA Pathology and Cytology Routine Screen for STD (sexually transmitted disease) Ordered: 04/25/2025[facility] Work Phone: comment on above:Ordered: 04/25/2025Thyrotropin [Units/volume] in Serum or PlasmaTSH Lab Routine PCOS (polycystic ovarian syndrome) Ordered: 04/10/2024[facility] HospitalComment on above:Ordered: 04/10/2024 Thyroxine (T4) free [Mass/volume] in Serum or PlasmaT4, free Lab Routine PCOS (polycystic ovarian syndrome) Ordered: 04/10/2024[facility] HospitalComment on above:Ordered: 04/10/2024 Payers DatePayer CategoryPayerPolsanford [facility] [id number]-pay2023Medicaid [id number] [id number] 2..[id number] 2.0.1.977449.3.57[id number] 2.0.1.894658.3.579.2.589569-07-9873Qxubxmk [id number] 2.0.1.020603.3.57[id number] 2.16840.1.426720.3.57[id number] 2.16840.1.799974.3.57[id number] 2.16840.1.190432.3.57[id number] 2.16840.1.354136.3.57[id number] 2..1.505106.3.57[id number] 2..1.107259.3.57[id number] 2.0.1.344654.3.57[id number] 2..1.482623.3.57[id number] 2..1.775214.3.57[id number] 2..1.346641.3.57[id number] 2.840.1.117811.3.57[id number] 2.0.1.916114.3.57[id number] 2.16840.1.912075.3.57[id number] 2.840.1.396387.3.57[id number] 2.16.840.1.100431.3.57[id number] 2.16.840.1.106909.3.57[id number] 2.16.840.1.92[id number] 2.16.840.1.711063.3.579.2.531 Social History DateTypeDetailFacilityStart: 02-22-2024 End: 94-75-0700Xbj Assigned At [facility] Inquirly Other Start: 06-50-7182Jpr Assigned At [facility] SystemTobacco smoking status NHISTobacco smoking consumption unknownNOPR HealthcareStart: 74-77-4739Vgi assigned at birthNot on fileProDekalb Regional Medical Center Inform Genomics SystemStart: 10-09-2022 End: 45-82-4990Syaadsg smoking status NHISNever smoked tobaccoProDekalb Regional Medical Center Inform Genomics SystemStart: 10-09-2022 End: 52-05-1548Ztdxnxj use and exposureSmokeless tobacco non-userProDekalb Regional Medical Center Inform Genomics SystemStart: 02-22-2024 End: 48-18-6225Cyoldkmas beverage intakeEx-drinker (finding)[facility] SystemStart: 02-22-2024 End: 13-25-3854Bqglzmo of Social functionProMediWhite Hospital SystemStart: 97-34-0727Tyomls the past 12 months we worried whether our food would run out before we got money to buy more.Never TrueProFostoria City HospitalPROTEIN LOUNGE SystemStart: 09-30-2022 End: 36-08-8914PlaEzgkvz (finding)[facility] Centertart: 56-65-3203Werrpogxz beverage intakeLifetime non-drinker (finding)[facility] Work Phone: Start: 12-24-2024 End: 82-75-7068Bvawtwmn to SARS-CoV-2 (event)Not sureUnBerger HospitalStart: 11-93-8968EelrzxlysNYEG Healthcare Functional Status MbofKsdrtaybdnEcumglCqdzagmb13-54-7120Bimpsev Health Questionnaire 2 item (PHQ- 2) [Reported][facility] HospitalFadjhliria69-86-1143Ukizwzj Health Questionnaire 2 item (PHQ- 2) [Reported][facility] Work Phone: 1(316) 467-508705847894-51-7938Wfwlcbpb - suicide severity rating scale screener - recent [C-SSRS][facility] Work Phone: Clinical Notes 10-11-2022 to 06-24-2025 Note Date & LcfrZcpsCtuxqzfo99-34-2524 History of Present illness Narrative* Karoline Casillas, [...] (polycystic ovarian syndrome) 07/30/2024 induced hypertension, antepartum ([facility]) 04/25/2025 Vitamin D deficiency 05/23/2025 H/O pre-eclampsia in prior , currently ([facility]) 05/23/2025 Resolved Ambulatory Problems Diagnosis Date [...] nursing note reviewed. Exam conducted with a gopherman present. Vitals: Estimated body mass index is 43.33 kg/m as calculated from the following: Height as of 06/11/24: 5' 8 . Weight as of this encounter: 285 lb. BP: 150/86 Patient's last menstrual period was 12/26/2024. Assessment/Plan ICD-10-CM 1. Second trimester ([facility]) Z34.92 POCT urinalysis dipstick manually resulted 2. 25 weeks gestation of ([facility]) Z3A.25 labetalol (Normodyne) 100 MG tablet 3. H/O pre-eclampsia in prior , currently ([facility]) O09.299 labetalol (Normodyne)100 MG tablet 4. Vitamin D deficiency E55.9 5. Chronic hypertension affecting ([facility]) O10.919 labetalol (Normodyne) 100 MG tablet [...] given for patient to get scheduled at [facility] and [facility] Scheduling. Patient to return to clinic in 2 weeks for routine OB appointment. Patient has had ER visits since last appointment due to headaches and elevated BP. Patient to have no lifting and to rest while off work. Documented by Karoline Casillas LPN on behalf of: Caesar Broderick DO documented in this encounterOzarks Community HospitalCscxwjylvd94-37-3313 History of Present illness Narrative* Yordy Cruz [...] TESTS AND ULTRASOUND REPORTS: Referral records and [facility] chart were reviewed Pertinent Ultrasound findings [...] ultrasound, attempt completion in 4 weeks through [facility] serial growth ultrasounds every 4 weeks following [...] patient is in complete care of her data processing equipment repairer. Patient does have ultrasound and office visit scheduled with us. Thank you for allowing me to participate in the care of Ellen Ramires. If there any questions please do not hesitate to contact us. Yordy Cruz MD Maternal- Medicine [facility] [address] [facility] [facility] [address] [place] [address] This document was created with [employer] technology. Though I make every effort to review the dictation as it is transcribed, on occasion the spoken word can be misinterpreted by the technology leading to inappropriate words, phrases, or sentences. This note is addressed to the requesting provider as a consultation for clinical guidance. Specificmedical abbreviations are occasionally used and those are generally approved by the [place]?Board of?Obstetrics and?Gynecology?as well as?Rama tapia abbreviations. The above plan of care was based solely on the diagnoses for which a consultation was requested. ?More frequent testing may be indicated based on her other medical/obstetrical conditions. The management of other or medical conditions is beyond the scope of requested consultation and will c ontinue to be followed by the primary data processing equipment repairer or primary care provider. Note to patient: [...] opinion of the practitioner. documented in this encounterOhioHealth [facility] Hospital10-15-2025 History of Present illness Narrative* Rody [...] (polycystic ovarian syndrome) 07/30/2024 induced hypertension, antepartum ([facility]) 04/25/2025 Vitamin D deficiency 05/23/2025 H/O pre-eclampsia in prior , currently ([facility]) 05/23/2025 Resolved Ambulatory Problems Diagnosis Date [...] nursing note reviewed. Exam conducted with a gopherman present. Vitals: Estimated body mass index is 42.99 kg/m as calculated from the following: Height as of 06/11/24: 5' 8 . Weight as of this encounter: 282 lb 12 oz. BP: 130/76 Patient's last menstrual period was 12/26/2024. ASSESSMENT & PLAN ICD-10-CM 1. Second trimester ([facility]) Z34.92 POCT urinalysis dipstick manually resulted 2. 23 weeks gestation of ([facility]) Z3A.23 Return OB: Patient presents today [...] 06/01/2024 WISDOM TOOTH EXTRACTION documented in this encounterOzarks Community HospitalRhfurmvvxl74-11-0811 History of Present illness Narrative* Rody Qiu [...] (polycystic ovarian syndrome) 07/30/2024 induced hypertension, antepartum ([facility]) 04/25/2025 Vitamin D deficiency 05/23/2025 H/O pre-eclampsia in prior , currently ([facility]) 05/23/2025 Resolved Ambulatory Problems Diagnosis Date [...] nursing note reviewed. Exam conducted with a gopherman present. Vitals: Estimated body mass index is 43.03 kg/m as calculated from the following: Height as of 06/11/24: 5' 8 . Weight as of 05/23/25: 283 lb. BP: Patient's last menstrual period was 12/26/2024. ASSESSMENT & PLAN ICD-10-CM 1. Second trimester ([facility]) Z34.92 2. 22 weeks gestation of ([facility]) Z3A.22 POCT urinalysis dipstick manually resulted [...] of: Rody Qiu NP documented in this encounterOzarks Community HospitalJosnvyewix76-46-8457 History of Present illness Narrative* Rody Qiu [...] (polycystic ovarian syndrome) 07/30/2024 induced hypertension, antepartum ([facility]) 04/25/2025 Vitamin D deficiency 05/23/2025 H/O pre-eclampsia in prior , currently ([facility]) 05/23/2025 Resolved Ambulatory Problems Diagnosis Date [...] nursing note reviewed. Exam conducted with a gopherman present. Vitals: Estimated body mass index is 43.03 kg/m as calculated from the following: Height as of 06/11/24: 5' 8 . Weight as of this encounter: 283 lb. BP: 142/82 Patient's last menstrual period was 12/26/2024. ASSESSMENT & PLAN ICD-10-CM 1. Second trimester ([facility]) Z34.92 POCT urinalysis dipstick manually resulted 2. 21 weeks gestation of ([facility]) Z3A.21 3. induced hypertension, antepartum ([facility]) O13.9 4. Vitamin D deficiency E55.9 5. H/O pre-eclampsia in prior , currently ([facility]) O09.299 Return OB: Patient presents today [...] of: Rody Qiu NP documented in this encounterOzarks Community HospitalJlnssrtzwm16-62-9509 History of Present illness Narrative* Bethany Lundy [...] No Have you been seen here at [facility] in a previous ? No Recent ER visits or hospitalizations? Yes, for slicing thumb on mandolin Bring blood sugar log or meter with you today? (Please bring them with you for every visit at [facility]) N/A Flu vaccine (Jun-October)? N/A Any concerns [...] TESTS AND ULTRASOUND REPORTS: Referral records and [facility] chart were reviewed Pertinent Ultrasound findings [...] recommended threshold of 160/110. Referenc e: PMID: [id number], 2021. Blood pressures do increase as progresses [...] preeclampsia prevention as is recommended by the [place] [employer] Gynecology Committee Opinion No. 743. [...] patient is in complete care of her data processing equipment repairer. Patient does have ultrasound and office visit scheduled with us. Thank you for allowing me to participate in the care of Ellen Ramires. If there any questions please do not hesitate to contact us. Yordy Cruz MD Maternal- Medicine [address] [place] [address] This document was created with [employer] technology. Though I make every effort to review the dictation as it is transcribed, on occasion the spoken word can be misinterpreted by the technology leading to inappropriate words, phrases, or sentences. This note is addressed to the requesting provider as a consultation for clinical guidance. Specificmedical abbreviations are occasionally used and those are generally approved by the [place]?Board of?Obstetrics and?Gynecology?as well as?Rama tapia abbreviations. The above plan of care was based solely on the diagnoses for which a consultation was requested. ?More frequent testing may be indicated based on her other medical/obstetrical conditions. The management of other or medical conditions is beyond the scope of requested consultation and will c ontinue to be followed by the primary data processing equipment repairer or primary care provider. Note to patient: [...] Blood drawn for cell-free DNA testing per [facility] phlebotomy. Patient tolerated well. documented in this encounterOhioHealth Shelby Hospital09-04-2025 History of Present illness Narrative* Rody [...] (polycystic ovarian syndrome) 07/30/2024 induced hypertension, antepartum ([facility]) 04/25/2025 Resolved Ambulatory Problems Diagnosis Date Noted [...] nursing note reviewed. Exam conducted with a gopherman present. Vitals: Estimated body mass index is 42.88 kg/m as calculated from the following: Height as of 06/11/24: 5' 8 . Weight as of this encounter: 282 lb. BP: 138/82 Patient's last menstrual period was 12/26/2024. ASSESSMENT & PLAN ICD-10-CM 1. Screening, , for anatomic survey ([facility]) Z36.89 CANCELED: US OB 14+ weeks anatomy scan 2. Second trimester ([facility]) Z34.92 POCT urinalysis dipstick manually resulted 3. 17 weeks gestation of ([facility]) Z3A.17 4. Screen for STD (sexually transmitted disease) Z11.3 SURESWAB(R) ADVANCED VAGINITIS PLUS, TMA CHLAMYDIA TRACHOMATIS (GENITO/STI) Neisseria gonorrhea DNA probe, direct 5. Need for maternal serum alpha-protein (MSAFP) screening ([facility]) Z36.1 Alpha fetoprotein, maternal Alpha fetoprotein, maternal 6. induced hypertension, antepartum ([facility]) O13.9 7. Vitamin D deficiency E55.9 [...] of: Caesar Broderick DO documented in this encounterOzarks Community HospitalCjhtnifrba73-76-1232 History of Present illness Narrative* Karoline Casillas, ANIMAL NUTRITIONIST - 04/11/2025 10:30 AM EDT Reason for [...] nursing note reviewed. Exam conducted with a gopherman present. Vitals: Estimated body mass index is 42.63 kg/m as calculated from the following: Height as of 06/11/24: 5' 8 . Weight as of this encounter: 280 lb 6.4 oz. BP: 140/86 Patient's last menstrual period was 12/26/2024. ASSESSMENT & PLAN ICD-10-CM 1. 15 weeks gestation of ([facility]) Z3A.15 POCT urinalysis dipstick manually resulted 2. Second trimester ([facility]) Z34.92 POCT urinalysis dipstick manually resulted 3. Acute nonintractable headache, unspecified headache type R51.9 4. BP check Z01.30 Patient presents today for a routine obstetrics appointment. Patient is currently 15w1d with a Estimated Date of Delivery: 10/02/25. Patient is having persistent elevated HTN. Discussed patient being referred to [facility] for management and recommendations for Gestational HTN. Patient is agreeable with referral. Patient to be started on Labetalol 200mg BID. Patient given labs and 24 hour urine to have obtained for baseline testing. Patient aware that once lab results are obtained then referral will be completed, so then all results can be sent to [facility] at onetime. Patient to return to clinic in 4 weeks for routine OB appointment. Patient to reach out to office with any concerns/questions. Documented by Karoline Casillas LPN on behalf of: Caesar Broderick DO documented in this encounterOzarks Community HospitalBmfkvvjvcz88-43-9442 History of Present illness Narrative* Karoline Casillas [...] nursing note reviewed. Exam conducted with a gopherman present. Vitals: Estimated body mass index is 42.29 kg/m as calculated from the following: Height as of 24: 5' 8 . Weight as of this encounter: 278 lb 1.9 oz. BP: 138/80 Patient's last menstrual period was 12/26/2024. ASSESSMENT & PLAN ICD-10-CM 1. 13 weeks gestation of ([facility]) Z3A.13 POCT urinalysis dipstick manually resulted 2. Second trimester ([facility]) Z34.92 POCT urinalysis dipstick manually resulted [...] or undercooked meat, and stay away from [facility]. Patient has been consulted regarding any [...] of: Caesar Broderick DO documented in this encounterOzarks Community HospitalWscktxecsz14-57-1438 History of Present illness Narrative* Melanie Almaraz [...] dipstick manually resulted , unspecified gestational age ([facility]) - Type and screen; Future - ABO/Rh; Future - CBC and differential - Hemoglobin A1c - RPR - Rubella antibody, IgG - Hepatitis B surface antigen - Hepatitis C antibody - HIV-1 and HIV-2 antibodies - Rapid drug screen, urine; Future Encounter for supervision of normal first in first trimester ([facility]) - Rapid drug screen, urine; Future 9 weeks gestation of ([facility]) Nurse Note: Pt uncertain of doing the [place] [employer] to one. Advised pt if she does to make sure both labs and [place] is done at the same time. PVU. Pt did state she had a Vit. D deficiency and has a h/o high blood pressure with G1. [employer] advised patient showed in dating [place] today [...] or undercooked meat, and stay away from [facility]. 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 Tadalafil - 10mg as needed Injuries: No STD: No Please select all that are applicable: SA: Yes SA Results: Yes -Done at [facility] 2023- reports was told normal, no report [...] family history on file. documented in this encounterUniversity [facility] Work Phone: 1(722) 256-574305-15-2025 Instructions* Patient Instructions* Robbie Lopez MD - [...] Lopez 01/03/2025 11:05 AM documented in this encounterUniversity Hospitals [facility] Work Phone: 1(228) 848-616004-29-2025 History of Present illness Narrative* Kita Griggs [...] nursing note reviewed. Exam conducted with a gopherman present. Vitals: Estimated body mass index is [...] after allowing sufficient time to take affect. metal pickling equipment operator and scissors used to remove affected area. Placed in formalin and sent to pathology. Post-procedure instructions given. Follow Up: as needed Documented by Kita Griggs LPN on behalf of: Caesar Broderick DO documented in this encounterOzarks Community HospitalGkpqklntow29-65-9983 History of Present illness Narrative* Melanie Almaraz [...] nursing note reviewed. Exam conducted with a gopherman present. Vitals: Estimated body mass index is [...] of: Caesar Broderick DO documented in this encounterOzarks Community HospitalAeydgrwvqm41-63-8996 History of Present illness Narrative* Karoline Casillas [...] of: Caesar Broderick DO documented in this encounterOzarks Community HospitalXedrrsxwss73-23-7700 History of Present illness Narrative* Kita Griggs [...] nursing note reviewed. Exam conducted with a gopherman present. Vitals: Estimated body mass index is [...] of: Caesar Broderick DO documented in this encounterOzarks Community HospitalVzrstaxebr75-74-5259 History of Present illness Narrative* Karoline Casillas [...] nursing note reviewed. Exam conducted with a gopherman present. Vitals: Estimated body mass index is [...] of: Caesar Broderick DO documented in this encounterOzarks Community [id number] History of Present illness Narrative* Whitney Painting - 05/03/2024 11:40 AM EDT Reason for Appointment: Patient ID: Ellen Ramires is a 34 y.o. female who presents for Pre-op Visit Patient presents today for Pre Op appointment. Patient is scheduled to undergo Diagnostic Laparoscopy, possible FLAKITO, possible FOE, possible BSO, possible Chromopertubation on 06/01/[address] Broderick at [facility]. MEDICATIONS Current Outpatient Medications Medication Instructions D-400 [...] nursing note reviewed. Exam conducted with a gopherman present. Vitals: There is no height or [...] reviewed, and patient is to proceed to [facility] OR. Follow Up: Patient is to follow up between 1-2 weeks post operative to assess proper healing and recovery fromprocedure. Documented by Karoline Casillas LPN on behalf of: Caesar Broderick DO documented in this encounterOzarks Community [id number] History of Present illness Narrative* Kita Griggs [...] nursing note reviewed. Exam conducted with a gopherman present. 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 PCP: [facility] Jazmín Referring Physician: Sabiha Aviles APRN-[place] [address] documented in [facility] encounter[facility] Miscellaneous Notes* Telephone Encounter - Sheyla Powell CMA - 03/12/2024 2:47 PM EDT Left message for patient to remind them to bring their most current medication list with them to their appointment. documented in this encounterOhio[facility]07-22-2024 Telephone encounter Note* Telephone Encounter - Sheyla Powell CMA - 03/12/2024 2:47 PM EDT Left message for patient to remind them to bring their most current medication list with them to their appointment. [facility] Evaluation note* Encounter Date Diagnosis Assessment [...] the onset of your symptoms of COVID [employer] Other Chief complaint+Reason for visit Narrative* Chief Complaint sinus pressure, coug h Reason for Visit Contact with and (matt spected) exposure to covid-19 Sore throat Sinusitis [facility] Work Phone: Evaluation note* Diagnosis Onset Date Resolution Status Contact with and (suspected) exposure to covid-19 acuteSore throatacuteSinusitisnoneactive [facility] Work Phone: Evaluation note* Diagnosis Postoperative visit S/P laparoscopic procedure Other postprocedural status documented in this encounter [facility]* Diagnosis PCOS (polycystic ovarian syndrome) Polycystic ovaries Encounter for fertility planning documented in this encounter [facility]Evaluation [facility]* Diagnosis Pre-op examination Pelvic pain in female Unspecified symptom associated with female genital organs Fallopian tube disorder Unspecified noninflammatory disorder of ovary, fallopian tube, and broad ligament documented in this encounter [facility] HealthcareEvaluation note* Diagnosis Encounter for fertility planning PCOS (polycystic ovarian syndrome) Polycystic ovaries Pelvic pain in female Unspecified symptom associated with female genital organs Abnormal uterine bleeding (AUB) documented in this encounter [facility] HealthcareEvaluation note* Diagnosis Heart palpitations- Primary Palpitations [facility] Diagnosis Encounter for fertility planning Acute cystitis without hematuria PCOS (polycystic ovarian syndrome) Polycystic ovaries Fallopian tube disorder Unspecified noninflammatory disorder of ovary, fallopian tube, and broad ligament documented in this encounter [facility] HealthcareEvaluation note* Diagnosis Well woman exam with routine gynecological exam Routine gynecological examination documented in this encounter [facility] Healthcare[facility] note* Diagnosis Skin mole documented in this encounter [facility] HealthcareEvaluation noteNo assessment information availableMemorial Hospital Work Phone: Evaluation note* Diagnosis Encounter for preprocedural laboratory examination- Primary Abnormal uterine bleeding Unspecified disorder of menstruation and other abnormal bleeding from female genital tract documented in this encounter [facility] Work Phone: Evaluation note* Diagnosis Amenorrhea Absence of menstruation Missed menses , unspecified gestational age ([facility]) Encounter for supervision of normal first in first trimester ([facility]) 9 weeks gestation of ([facility]) Vitamin D deficiency History of hypertension Personal history of other diseases of circulatory system documented in this encounter [facility] HealthcareEvaluation note* Diagnosis 13 weeks gestation of ([facility]) Second trimester ([facility]) state, incidental Acute nonintractable headache, unspecified headache type documented in this encounter [facility]* Diagnosis 15 weeks gestation of ([facility]) Second trimester ([facility]) state, incidental Acute nonintractable headache, unspecified headache type BP check Screening for hypertension Gestational hypertension, antepartum ([facility]) induced hypertension, antepartum ([facility]) Transient hypertension of , antepartum [facility] Diagnosis Hypertension affecting in second trimester- Primary [facility] Diagnosis Screening, , for anatomic survey ([facility]) Encounter for anatomic survey Second trimester ([facility]) state, incidental 17 weeks gestation of ([facility]) Screen for STD (sexually transmitted disease) Screening examination for venereal disease Need for maternal serum alpha-protein (MSAFP) screening ([facility]) induced hypertension, antepartum ([facility]) Transient hypertension of , antepartum Vitamin D deficiency [facility]* Diagnosis Chronic 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 Severe obesity due to excess calories affecting , antepartum ([facility]) 20 weeks gestation of [facility] 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 Chronic hypertension affecting Severe obesity due to excess calories affecting , antepartum ([facility]) Hypertension affecting in second trimester [facility]* 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 Chronic hypertension affecting Severe obesity due to excess calories affecting , antepartum ([facility]) Hypertension affecting in second trimester [facility]* Diagnosis Chronic hypertension affecting ([facility])- Primary Second trimester ([facility]) state, incidental 22 weeks gestation of ([facility]) [facility]* Diagnosis Second trimester ([facility]) state, incidental 21 weeks gestation of ([facility]) induced hypertension, antepartum ([facility]) Transient hypertension of , antepartum Vitamin D deficiency H/O pre-eclampsia in prior , currently ([facility]) documented [facility]* Diagnosis Second trimester ([facility]) state, incidental 23 weeks gestation of ([facility]) documented [facility]* Diagnosis Chronic hypertension affecting - Primary 20 weeks gestation of Anxiety disorder affecting , 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 Severe obesity due to excess calories affecting , antepartum ([facility]) [facility] Diagnosis Second trimester ([facility]) state, incidental 25 weeks gestation of ([facility]) H/O pre-eclampsia in prior , currently ([facility]) Vitamin D deficiency Chronic hypertension affecting ([facility]) Diabetes mellitus screening Screening for diabetes mellitus documented in this encounter [facility] HealthcareInstructionsNot on filedocumented in this encounterMarymount Hospital SystemInstructionsNot on filedocumented in this encounterMarymount Hospital SystemInstructionsNot on filedocumented in this encounterMarymount Hospital SystemInstructionsNot on filedocumented in this encounterMarymount [facility] InstructionsNot on filedocumented in this [facility] InstructionsNot on filedocumented in this [facility] InstructionsNot on filedocumented in this encounterMary[facility] InstructionsNot on filedocumented in this encounterMary[facility] InstructionsNot on filedocumented in this [facility] Family History No Family History Records [...] [facility] LABS AT PCPSpecialtyDiagnoses / ProceduresReferred By Contact Referred To ContactCardiology Diagnoses Heart palpitations Sabiha Aviles, KRISTINE-DIGITAL IMAGING SPECIALIST [address] [place] [address] [facility] [address] [place] [address] Referral IDStatusReasonStart DateExpiration DateVisits RequestedVisits [id number] Review Specialty Services Required /[id number]-juZkwnysPolsmigdRdhfnudqxsv ExamReason CommentsMole removalReasonCommentsInfertilityReasonCommentsAmenorrheaReason CommentsRoutine VisitReasonCommentsgHTNPCOS Care Teams [...] DateEnd Date Kromer, Judy PCP - [facility]7/09/14Team MemberRelationshipSpecialtyStart DateEnd Date Kromer, Judy PCP - [facility]7/09/14Team MemberRelationshipSpecialtyStart DateEnd Date Kromer, Judy PCP - [facility]7/09/14Team MemberRelationshipSpecialtyStart DateEnd Date Kromer, Judy PCP - [facility]7/09/14Team MemberRelationshipSpecialtyStart DateEnd Date Kromer, Judy PCP - [facility]7/09/14Team MemberRelationshipSpecialtyStart DateEnd Date Kromer, Judy PCP - [facility]7/09/14Team MemberRelationshipSpecialtyStart DateEnd Date Kromer, Judy PCP - [facility]7/09/14Team MemberRelationshipSpecialtyStart DateEnd Date [address] [place] PCP - GeneralFamily Medicine11/12/22Team MemberRelationshipSpecialtyStart DateEnd Date [facility] [address] [place] PCP - GeneralFamily Medicine11/12/22Team MemberRelationshipSpecialtyStart DateEnd Date [facility] [address] [place] PCP - GeneralFamily Medicine11/12/22Team MemberRelationshipSpecialtyStart DateEnd Date Kromer, Judy PCP - [facility]02/20/24Team MemberRelationshipSpecialtyStart DateEnd Date Kromer, Judy PCP - [facility]02/20/24Team MemberRelationshipSpecialtyStart DateEnd Date Kromer, Judy PCP - [facility]02/20/24Team MemberRelationshipSpecialtyStart DateEnd Date Kromer, Judy PCP - [facility]02/20/24 Team Status: Inactive Member Role Status Dates Caesar Broderick DO Attending Provider Active Start : December 18, 2024 End: December 18, 2024Team MemberRelationshipSpecialtyStart DateEnd Date June Trinidad LPN Licensed Practical NurseReproductive Endocrinology and Infertility01/01/25Team MemberRelationshipSpecialtyStart DateEnd Date Kromer, Judy PCP - [facility]02/20/24Team MemberRelationshipSpecialtyStart DateEnd Date Kromer, Judy PCP - [facility]02/20/24Team MemberRelationshipSpecialtyStart DateEnd Date Kromer, Judy PCP - [facility]02/20/24Team MemberRelationshipSpecialtyStart DateEnd Date Judy Caal PCP - [facility]02/20/24am MemberRelationshipSpecialtyStart DateEnd Date Services, [facility] [address] [place], [place] PCP - GeneralFamily Medicine11/03/24Team MemberRelationshipSpecialtyStart DateEnd Date Services, [facility] [address] [place], [place] PCP - GeneralFamily Medicine11/03/24Team MemberRelationshipSpecialtyStart DateEnd Date Lima Caalsa PCP - [facility]02/20/24Team MemberRelationshipSpecialtyStart DateEnd Date [facility], [facility] [address] [place], [place] PCP - GeneralFamily Medicine11/03/24Team MemberRelationshipSpecialtyStart DateEnd Date Services, [facility] [address] [place], [place] PCP - GeneralFamily Medicine11/03/24Team MemberRelationshipSpecialtyStart DateEnd Date [facility] [address] [place], [place] PCP - GeneralFamily Medicine11/03/24Team MemberRelationshipSpecialtyStart DateEnd Date Andres Caalyssa PCP - [facility]02/20/24Team MemberRelationshipSpecialtyStart DateEnd Date Afua Judy PCP - [facility]02/20/24Team MemberRelationshipSpecialtyStart DateEnd Date Services, [facility] [address] [place], [place] PCP - GeneralFamily Medicine11/03/24Team MemberRelationshipSpecialtyStart DateEnd Date Judy Caal PCP - [facility]02/20/24 Goals (unrecognized section and content) Goals may be documented in a n alternate section INFORMATION SOURCE (unrecogn ized section and content) DATE CREATED AUTHOR 12/29/2024 [facility] DATE CREATED AUTHOR AUTHOR'S ORGANIZ ATION 01/07/2025 [facility] DATE CREATED AUTHOR AUTHOR'S ORGANIZ ATION 06/19/2025 [facility] DATE CREATED AUTHOR AUTHOR'S ORGANIZ ATION 06/20/2025 [facility] DATE CREATED AUTHOR AUTHOR'S ORGANIZ ATION 06/25/2025 [facility] EPIC FOR RECORDS [...] BE BASED ON THE PRIMARY CLINICAL RECORDS. [employer] provides no warranty or guarantee of the accuracy or completeness of information in this document.
[2025-07-23 10:22] VITALS: BP 113/56; PULSE 93
== END 2025-07-23 10:59 | disposition home or self-care (01) ==
LOC: US 10:00 → FBC 10:02
PROVIDERS: Visit Provider Obstetrics & Gynecology
DX: O10.913 Unspecified pre-existing hypertension complicating pregnancy, third trimester (principal); Z3A.29 29 weeks gestation of pregnancy
CPT/HCPCS: 76818

== ENCOUNTER 2025-07-26 15:04 | Outpatient (OUT) | payer MEDICAID, SELFPAY ==
--- OUTSIDE RECORDS SUMMARY | 2025-07-26 15:09 | XMS_ITS | CCD ---
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, June A Unavailable Unavailable ROBBIE LOPEZ Attending Unavailable Services, [facility] Primary Care Provider SERVICES, [facility] Care Unava ilable MILLIE VILLAGRAN Attending Unavailable SERVICES, [facility] Care Unava ilable FRANCIE ABRAMS Attending Unavailable DAVIE, CAESAR R Referring Unavailable SERVICES, [facility] Care Unava ilable DAVIE, CAESAR R Referring Unavailable SERVICES, [facility] Care Unava ilable YORDY CRUZ Attending Unavailable DAVIE, CAESAR R Referring Unavailable SERVICES, [facility] Care Unava ilable DAVIE, CAESAR R Referring Unavailable SERVICES, [facility] Care Unava ilable YORDY CRUZ Attending Unavailable DAVIE, CAESAR R Referring Unavailable SERVICES, [facility] Care Unava ilable Services, [facility] Primary Care Provider DEWEY BRODERICKY Attending [...] 125 mg oral tablet (2 sources)Penicillin-class AntibacterialStart: 99-46-6423xhxu 1 tablet by mouth twice dailyAmoxicillin-Pot Clavulanate 875-125 mg tablet Active 1 TAB PO Twice daily November 24, 2023 12:00amaspirin 81 mg delayed release oral tablet (4 sources)Platelet Aggregation Inhibitor, Nonsteroidal Anti-inflammatory Drug take 1 tablet by mouth in the morningaspirin 81 mg Take 1 tablet (81 mg total) by mouth in the morning. Activecholecalciferol 0.01 mg oral tablet (20 sources)Vitamin DStart: 51-72-0158pdzxlwnzndnlqme 10 mcg (400 unit) tablet 2 tablets (800 Units total) in the morning. 01/26/2024 ActiveStart: 01-26-2024 End: 58-08-1636Awgdvhdtvzifyrj 10 MCG (400 UNIT) chewable tablet 1 (one) time each day at the same time Discontinued (Therapy completed) End: 16-01-4574fhhp 2 tablets by mouth once dailyD-400 10 MCG (400 UNIT) tablet TAKE 2 TABLETS BY MOUTH ONCE DAILY FOR 30 DAYS 03/28/2025 Discontinuedclobetasol propionate 0.0005 mg/mg topical ointment (3 sources)CorticosteroidStart: 05-17-2025 End: 49-47-2798wovymmnccY (TEMOVATE) 0.05 % ointment Indications: Acute palmoplantar pustular psoriasis , Chronic hypertension affecting , 20 weeks gestation of Apply a thin layer to the affected areas twice daily. 30 g 05/17/2025 05/31/2025 ActiveclomiPHENE citrate 50 mg oral tablet (3 sources)Estrogen Agonist/AntagonistStart: 11-12-2024 End: 45-50-1257mlgm 2 tablets by mouth once dailyclomiPHENE (Clomid) 50 MG tablet Indications: Encounter for fertility planning , PCOS (polycystic ovarian syndrome) , Fallopian tube disorder Take 2 tablets (100 mg) by mouth Daily for 5 days 10 tablet 11/12/2024 11/17/2024 Activefluticasone propionate 0.05 mg/actuat metered dose nasal spray (4 sources)CorticosteroidStart: 11-24-2023 End: 91-92-7541hhkwrfxdjxp (Flonase) 50 MCG/ACT nasal spray Daily 11/24/2023 04/10/2024 Discontinued (Other)Start: 92-17-1479ltfj 1 spray(s) nasal route once dailyFluticasone Propionate 50 mcg/actuation spray,suspension Active 2 SPRAY INTRANASAL Daily November 24, 2023 12:00am administer into each nostril labetalol hydrochloride 100 mg oral tablet (14 sources)beta-Adrenergic BlockerStart: 06-24-2025 End: 87-06-1708psqw 1 tablet by mouth once dailylabetalol (Normodyne) 100 MG tablet Indications: Hypertension Take 1 tablet (100 mg) by mouth Daily30 tablet 3 06/24/2025 07/24/2025 ActiveStart: 05-16-2025 End: 65-27-5434igli 1 tablet by mouth once at bedtimelabetalol (Normodyne) 200 MG tablet Indications: Second trimester (HHS-HCC) , Gestational hypertension, antepartum (HHS-HCC) TAKE 1 TABLET (200 MG) BY MOUTH IN THE MORNING AND AT BEDTIME 60tablet 2 05/16/2025 05/23/2025 Discontinued (Ineffective)Start: 04-11-2025 End: 04-73-4982rouq 1 tablet by mouth once in the morninglabetalol (Normodyne) 200 MG tablet Indications: Second trimester (HHS-HCC) , Gestational hypertension, antepartum (HHS-HCC) Take 1 tablet (200 mg) by mouth in the morning and 1 tablet (200mg) before bedtime. 60 tablet 04/11/2025 05/11/2025 Active End: 73-52-6056beeq 1 tablet by mouth in the morning, then take 1 tablet by mouth at bedtimelabetaloL (NORMODYNE) 200 mg tablet Take 1 tablet (200 mg total) by mouth in the morning and 1 tablet (200 mg total) before bedtime. 05/17/2025 Discontinuedmagnesium oxide 400 mg oral tablet (15 sources)Start: 03-28-2025 End: 55-35-2924qpnw 1 tablet by mouth once dailymagnesium oxide (Mag-Ox) 400 MG tablet Indications: Second trimester (HHS-HCC) , Acute nonintractable headache, unspecified headache type Take 1 tablet (400 mg) by mouth Daily 30 tablet 6 03/28/2025 04/27/2025 ActivemetFORMIN hydrochloride 500 mg oral tablet (20 sources)BiguanideStart: 89-31-4130enhDMEPXJ (Glucophage) 500 mg tablet 1 tablet (500 mg). 05/22/2024 ActiveStart: 04-10-2024 End: 61-56-5168xbes 1 tablet by mouth every twenty-four hours at mealtime metFORMIN XR (Glucophage-XR) 500 MG 24 hr tablet Indications: PCOS (polycystic ovarian syndrome) , Abnormal uterine bleeding (AUB) Take 1 tablet (500 mg) by mouth in the evening. Take with meals Do not crush, chew, or split. 30 tablet 11 04/10/2024 03/01/2025 Discontinued (Therapy completed) End: 89-01-9907iufh 1 tablet by mouth once daily at breakfastmetFORMIN XR (GLUCOPHAGE XR) 500 mg 24 hr tablet Take 1 tablet (500 mg total) by mouth daily with breakfast. 05/17/2025 DiscontinuedNIFEdipine 30 mg osmotic 24 hr extended release oral tablet (20 sources)Dihydropyridine Calcium Channel BlockerStart: 77-17-2546apmc 2 tablets by mouth every twenty-four hours at bedtimeNIFEdipine XL (PROCARDIA XL) 30 mg 24 hr tablet Indications: Chronic hypertension affecting , 20 weeks gestation of Take 2 tablets (60 mg total) by mouth in the morning and at bedtime. 60 tablet 2 06/18/2025 ActiveStart: 05-30-2025 End: 20-95-4176wnzj 1 tablet by mouth once daily in the morningNIFEdipine XL (Procardia XL) 60 MG 24 hr tablet Indications: Chronic hypertension affecting ([facility]) Take 1 tablet (60 mg) by mouth Daily Take 1 tablet in the am. Do not crush, chew, or split. 30 tablet 3 05/30/2025 05/30/2026 ActiveStart: 98-97-4797yoov 1 tablet by mouth once dailyProcardia XL 30 MG 24 hr tablet Take 30 mg by mouth Daily 05/17/2025 ActiveStart: 05-17-2025 End: 20-67-2522mqay 1 tablet by mouth every twenty-four hours at bedtime NIFEdipine XL (PROCARDIA XL) 30 mg 24 hr tablet Indications: Chronic hypertension affecting , 20 weeks gestation of Take 1 tablet (30 mg total) by mouth in the morning and at bedtime. 60 tablet 2 05/17/2025 06/18/2025 DiscontinuedpredniSONE 20 mg oral tablet (2 sources)Start: 60-43-1689bxnp 1 tablet by mouth twice dailyPrednisone 20 mg tablet Active 20 MG PO Twice daily 10 November 24, 2023 12:00amprenatal 115/iron/folic acid ( 19 ORAL) (4 sources)take 1 tablet by mouth in the morningprenatal 115/iron/folic acid ( 19 ORAL) Take 1 tablet by mouth in the morning. Activesertraline 25 mg oral tablet (20 sources)Serotonin Reuptake InhibitorStart: 22-84-9795rfpr 1 tablet by mouth in the morningsertraline (ZOLOFT) 25 mg tablet Indications: Anxiety disorder affecting , antepartum Take1 tablet (25 mg total) by mouth in the morning. 30 tablet 1 06/18/2025 ActiveStart: 92-13-6667xizv 1 tablet by mouth in the morningsertraline (ZOLOFT) 50 mg tablet Indications: Anxiety disorder affecting , antepartum Take1 tablet (50 mg total) by mouth in the morning. 30 tablet 1 06/18/2025 ActiveStart: 11-06-2024 End: 25-90-6568thdi 2 tablets by mouth once dailysertraline (Zoloft) 25 MG tablet Take 50 mg by mouth 1 (one) time each day at the same time 11/06/2024 ActiveStart: 11-06-2024 End: 55-96-7375bypf 3 tablets by mouth at bedtimesertraline (ZOLOFT) 25 mg tablet Take 3 tablets (75 mg total) by mouth before bedtime. 11/06/2024 DiscontinuedStart: 11-06-2024 End: 15-17-6824uxdlxvcist (Zoloft) 25 MG tablet 1 (one) time each day at the same time 11/06/2024 ActiveStart: 08-04-2023 End: 38-10-9912uvwa 1 tablet by mouth once dailysertraline (Zoloft) 50 MG tablet Take 50 mg by mouth Daily 08/04/2023 04/10/2024 Discontinued (Other)sertraline (ZOLOFT) 25 mg tablet Take by mouth daily. Active Completed/Discontinued Medications MedicationDrug Class(es)DatesSig (Normalized)Sig (Original)omeprazole 20 mg delayed release oral capsule (20 sources)Proton Pump InhibitorStart: 01-24-2024 End: 72-08-6583phwi 1 capsule by mouth in the morningomeprazole (PriLOSEC) [address] capsule Take 20 mg by mouth in the morning. 01/24/2024 03/28/2025 Dis continued Problems Active Problems Problem ClassificationProblemDateDocumented DateEpisodic/ChronicAbdominal pain (3 sources)Pain in female pelvis; Translations: [Pelvic and perineal pain] 26-40-7049WkcfyfuwThhrikg disorders (1 source)Anxiety disorder, unspecified; Translations: [Anxiety disorder, unspecified]Onset: 89-94-8491OuwmdbqLifbtgvbazvxj and procreative management (10 sources)Patient encounter status; Translations: [Encounter for other procreative management]92-31-0732XrkqocrxAszmwofx; including migraine (4 sources)Acute headache; Translations: [Acute nonintractable headache, unspecified headache type]81-09-4422RhxdvmebOvnrqmjigfnh complicating ; childbirth and the puerperium (18 sources)Hypertension complicating ; Translations: [Unspecified maternal hypertension, second trimester]Onset: hronic Hypertension complicating ; childbirth and the puerperium (20 sources)Hypertension AND/OR vomiting complicating childbirth AND/OR puerperium; Translations: [Gestational [-induced] hypertension without significant proteinuria, unspecified trimester]Onset: 04-25-2025 13-88-2171MoszhtlsZrtfpwfulvonr and screening for infectious disease (6 sources)Contact with and (suspected) exposure to other viral communicable diseases; Translations: [Contact with or exposure to other viral diseases] EpisodicMenstrual disorders (2 sources)Amenorrhea; Translations: [Amenorrhea, unspecified]07-94-3655Zopeupp Nutritional deficiencies (20 sources)Vitamin D deficiency; Translations: [Vitamin D deficiency, unspecified]Onset: 486458-75-0678RyclqciExjj wounds of extremities (2 sources)Laceration without foreign body of right thumb without damage to nail, initial encounter; Translations: [Laceration of finger]Onset: 04-29-2025 EpisodicOther aftercare (2 sources)Postoperative visit; Translations: [Encounter for other specified surgical aftercare]97-43-7699FlnxtcerAgqlp and unspecified benign neoplasm (1 source)Pigmented skin lesion ; Translations: [Melanocytic nevi, unspecified] 82-30-8160GgseqjjlDznnv circulatory disease (1 source)H/O: hypertension; Translations: [Personal history of other diseases of the circulatory system]86-22-7133OaowbqumRexoe complications of (5 sources)Maternal obesity complicating , childbirth and the puerperium, antepartum; Translations: [Obesity complicating , unspecified trimester]33-04-6080ItyczckPvxac complications of (2 sources)Obesity complicating , unspecified trimester; Translations: [Obesity complicating , unspecified trimester]Onset: 08-20-1958Ihqsxfh Other complications of (17 sources)History of pre-eclampsia; Translations: [Supervision of with other poor reproductive or obstetric history, unspecified trimester]Onset: 914050-69-1041VnszrxomSqcvw complications of (2 sources)Other mental disorders complicating , unspecified trimester; Translations: [Mental disorders of mother, antepartum condition or complication] Onset: 550705-20-2504ChgufcflPtoaz endocrine disorders (20 sources)Polycystic ovary syndrome; Translations: [Polycystic ovarian syndrome]Onset: 092868-32-4347CpqrnrrZkdla female genital disorders (4 sources)Abnormal uterine bleeding; Translations: [Abnormal uterine and vaginal bleeding, unspecified]45-71-1098ZvatibqZqyev female genital disorders (2 sources)Abnormal uterine and vaginal bleeding, unspecified; Translations: [Abnormal uterine and vaginal bleeding, unspecified]Onset: 12-63-5045Ewapqaw Other inflammatory condition of skin (5 sources)Pustular psoriasis of palms and soles; 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]77-11-2904GosvohxXjhrw inflammatory condition of skin (2 sources)Pustulosis palmaris et plantaris; 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]Onset: 15-11-9740BnnbpaeFmpwf nutritional; endocrine; and metabolic disorders (2 sources)Morbid (severe) obesity due to excess calories; Translations: [Morbid (severe) obesity due to excess calories]Onset: 52-41-2444ZwzsaypAyxzf and delivery including normal (16 sources); Translations: [Encounter for supervision of normal , unspecified, unspecified trimester]08-46-7650WrhstmirYcwif screening for suspected conditions (not mental disorders or infectious disease) (2 sources)Alpha-fetoprotein blood test status; Translations: [Encounter for screening for raised alphafetoprotein level]07-48-9608UdsxvxviSwnyr upper respiratory infections (1 source)Chronic sinusitis, unspecified; Translations: [Unspecified sinusitis (chronic)]58-35-9923SebcuomBapic upper respiratory infections (3 sources)Sore throat symptom; Translations: [Acute pharyngitis, unspecified] 96-43-8874JevbrojuWstmropj codes; unclassified (2 sources)History of laparoscopy; Translations: [Other specified postprocedural states]74-46-7172IwoowguvLrgjnoub codes; unclassified (1 source)Gestation period, 9 weeks; Translations: [9 weeks gestation of ]30-32-0755LyksxhzgGkdfaxjb codes; unclassified (2 sources)Gestation period, 13 weeks; Translations: [13 weeks gestation of ]53-17-0717ScnroanzPdzvyovl codes; unclassified (2 sources)Gestation period, 15 weeks; Translations: [15 weeks gestation of ]67-21-4448NfytocqyHvhztbkd codes; unclassified (2 sources)Gestation period, 17 weeks; Translations: [17 weeks gestation of ]74-93-9204FnfgetvpPbnggigk codes; unclassified (2 sources)Gestation period, 20 weeks; Translations: [20 weeks gestation of ]59-14-1672TeutfdmyIkyftbck codes; unclassified (2 sources)Gestation period, 22 weeks; Translations: [22 weeks gestation of ]21-09-0951QdmkpgymIfrtkoxc codes; unclassified (2 sources)Gestation period, 21 weeks; Translations: [21 weeks gestation of ]49-65-7135VjndyixyBseqgqds codes; unclassified (2 sources)Gestation period, 23 weeks; Translations: [23 weeks gestation of ]34-06-7471FcduxpdcWtdayqvi codes; unclassified (1 source)20 weeks gestation of ; Translations: [20 weeks gestation of ]Onset: 97-17-6111GujpgchpZkuxnsvd codes; unclassified (2 sources)Gestation period, 25 weeks; Translations: [25 weeks gestation of ]67-42-0016HpjoqelsXvjdyhgstres (1 source)gHTNOnset: 05-17-2025 Past or Other Problems Problem ClassificationProblemDateDocumented DateEpisodic/ChronicCardiac dysrhythmias (8 sources)Palpitations; Translations: [Palpitations]Onset: 596554-83-7906 EpisodicNonspecific chest pain (3 sources)Chest pain, unspecified; Translations: [Chest pain]Onset: 11-03-2024 EpisodicOther female genital disorders (20 sources)Fallopian tube disorder; Translations: [Noninflammatory disorder of ovary, fallopian tube and broadligament, unspecified]Onset: 567816-52-4142 EpisodicUnclassified (2 sources)Patient encounter zhkbwa81-25-3201Skrejdtlgunw (1 source)Onset: 516117-81-3776Homofojuwfoj (1 source)Anxiety disorder affecting , gnfjqdcizp32-34-7190Lhmeizu tract infections (3 sources)Acute cystitis; Translations: [Acute cystitis without hematuria] Onset: 702347-48-0076YjuugbtpFvmhn infection (1 source)COVID-19 Results Test NameValueInterpretationReference RangeFacilityUrinalysis macro (dipstick) panel (U)on 45-53-4746Jxyqbhhzg, UANegativeNegative - 4(70) +++ mg/dLNOMS HealthcareBlood, UANegativeNegative [...] mg/dLNOMS HealthcareNOMS HealthcareUrinalysis macro (dipstick) panel (U)on 41-80-1236Uyqfwmdkj, UA NegativeNegative - 4(70) +++ mg/dLNOMS HealthcareBlood, [...] mg/dLNOMS HealthcareNOMS HealthcareUrinalysis macro (dipstick) panel (U)on 28-10-4392Nalzsfnks, UANegativeNegative - 4(70) +++ mg/dL NOMS HealthcareBlood, UANegativeNegative - 50 Surjit/mcLNOMS HealthcareClarity, UA ClearNOMS HealthcareColor, UAYellowNOMS HealthcareGlucose, UANegativeNegative - 1999(110) ++++ mg/dLNOMS HealthcareInterpretation and review of laboratory resultsNormalNOMS HealthcareKetones, UANegativeNegative - 160(16) ++++ mg/dLNOOH HealthcareLeukocytes, UANegativeNegative - 500+++ [place]/mcLNOMS HealthcareNitrite, UANegativeNegative - PositiveNOMS HealthcarepH, UA65 - 9NOMS HealthcareProtein, UANegativeNegative - 2000(20) ++++ mg/dLNOMS HealthcareSpec Grav, UA1.0251 - 1.03NOMS HealthcareUrobilinogen, UA0.20.2 - 12 mg/dLNOMS HealthcareNOMS HealthcareAFP, SERUM, OPEN SPINA BIFIDAon 58-08-8589BPN MOM0.85.[facility] AFP VALUE38.2 ng/mL.[facility] Medical CenterCOMMENT:Comment.[facility] Medical CenterComment on above:Gema Ortez, Ph.D., [facility] Director References: Available Upon Request. Multiples Of Median Cutoffs For AFP Elevations Kumar 2.5 Black 2.8 IDD 2.0 Twins 4.5 Abbreviation Definitions IDD - Insulin Dep Diabetes OSBR - Open Spina Bifida Risk For further inquiries contact [employer] [facility] at [phone]. This test was developed and its performance characteristics determined by [employer]. It has not been cleared or approved by the Food and Drug Administration. Performed at: [facility] [address], [place] [id number] Motion Study Technician: Jesus Saleh [facility], Phone: [phone] GEST. AGE ON COLLECTION DATE21.1. weeksNOOH HealthcareGESTAT. AGE BASED ONLMP. [facility]point Medical CenterComment on above:Recalculations are not recommended when gestational dating by LMP and ultrasound are within 10 days. INSULIN DEP DIABETESNo.[facility] HealthcareINTERPRETATIONComment.[facility] Comment on above:Interpretation: Screen Negative [...] to discuss available options. The [place] [employer] recommends amniocentesis be offered to women age 35 and older. MATERNAL AGE AT EDD33.5. yrNOOH HealthcareMULTIPLE GESTATIONNo.[facility] Healthcare OSBR RISK 1 [id number].NOMS HealthcareRACECaucasian.[facility] HealthcareRESULTSReport. [facility] HealthcareTEST RESULTS:Negative.[facility] IynthfpjwfKRFHPQ069. lbsNOMS HealthcareN N LMP [id number] 2 9 N 1 [address] White/ CLINISYNCNOOH HealthcareUnlisted Lab Teston 09-73-4617Obbaq Free Cell Dnalow riskProFort Hamilton Hospital SystemProPremier Health Miami Valley HospitalB-TYPE NATRIURETIC PEPTIDEon 90-74-2856Yhlyuzbdobd peptide B (Bld) [Mass/Vol]46 pg/mLNormal<=100ProKettering Health Behavioral Medical CenterComment on above:Performed By: #### BNP #### [facility] (TT) [address] [place] [address] VIRUrinalysis macro (dipstick) panel (U)on 59-77-6686Vgdxtdnhp, UANegativeNegative - 4(70) +++ mg/dLNOOH HealthcareBlood, UANegativeNegative - 50 Surjit/mcLNOOH HealthcareClarity, UAClearNOOH HealthcareColor, UAYellowNOOH HealthcareGlucose, UANegativeNegative - 2000(110) ++++ mg/dLCenterpoint Medical Center Interpretation and review of laboratory resultsNormalNOOH HealthcareKetones, UA NegativeNegative - 160(16) ++++ mg/dLSALT LAKE REGIONAL MEDICAL [facility]ENTER HealthcareLeukocytes, UANegative Negative - 500+++ [place]aleigh/mcLNOOH HealthcareNitrite, UANegativeNegative - Positive [facility] HealthcarepH, UA65 - 9NOOH HealthcareProtein, UANegativeNegative - 2000(20) ++++ mg/dLNOOH HealthcareSpec Grav, UA1.0151 - 1.03NOOH HealthcareUrobilinogen, UA1.00.2 - 12 mg/dLNOThree [facility] Healthcare HealthcareTBH TOTAL PROTEIN 24 HOUR URINEon 54-43-4652ZMLQQ PROTEIN URINE RANDOM<6.0NINF - 11.9 mg/dLCenterpoint Medical Center TOTAL VOLUME 24 HOUR XOQVQ1247xN/24hrNOOH HealthcareCLINISYNCNOMS HealthcareALL CBC WITH AUTO DIFFon 89-03-2166JPVLEZSIZ ABSOLUTE KNAJ2FUOE Healthcare Basophils/100 WBC (Bld)0.2 %0.2 - 2.0 %NOMMercy Hospital St. John'SEosinophils/100 WBC (Bld) 2.9 %0.9 - 7.0 %[facility] Medical CenterErythrocyte distribution width (RBC) [Ratio]12.3 %11.0 - 15.0 %[facility] Medical CenterIMMATURE GRANULOCYTES ABS AUTO0.09HighNOThree Rivers HealthcareImmature granulocytes/100 WBC (Bld)0.7 %High0.0 - 0.5 %[facility] Interpretation and review of laboratory resultsAbnormalCenterpoint Medical Center LYMPHOCYTES ABSOLUTE MAGZ8XIYKThree Rivers HealthcareLymphocytes/100 WBC (Bld)15.4 %Low20.5 - 60.0 %[facility] CenterH (RBC) [Entitic mass]31.3 pg26.7 - 34.0 pgSaint Louis University Health Science CenterHC (RBC) [Mass/Vol]33.6 g/dL29.9 - 35.2 g/dLSaint Louis University Health Science CenterV (RBC) [Entitic vol]93.2 fL81.0 - 99.0 fLCenterpoint Medical CenterMONOCYTES ABSOLUTE AUTO0.5NOThree Rivers HealthcareMonocytes/100 WBC (Bld)4.1 %1.7 - 12.0 %[facility] CenterNEUTROPHILS ABSOLUTE AUTO9.9HighNOThree Rivers HealthcareNeutrophils/100 WBC (Bld)76.7 %High43.0 - 75.0 %[facility] Medical CenterPlatelet mean volume (Bld) [Entitic vol]10.2 fL9.5 - 13.5 fLCenterpoint Medical CenterTBH EO #0.4NOThree Rivers HealthcareTBH BJH213PATKShriners Hospitals for Children RBC3.8 LowNOThree Rivers HealthcareTB UWW77XgajBNFSCenterpoint Medical CenterCLINISYNCAPTTon 01-29-6331uYOC Coag (Bld) [Time]26.5 [facility] without diffon 04-17-2025 Platelets (Bld) [#/Vol]251 10*3/uLMemorial Health System Mcv (Fl) By Automated Count93.2Pro[facility]ica Health SystemLaboratory - Hematology and Cell countson 96-42-8099Guhtrhrrvf (Bld) [Volume fraction]35.4 %[facility] Hemoglobin (Bld) [Mass/Vol]11.9 g/dLNOOH HealthcareNo Panel Informationon 69-10-2161NDPR HealthcareUrinalysis macro (dipstick) panel (U)on 04-11-2025 Bilirubin, UANegativeNegative - 4(70) +++ mg/dLNOMS HealthcareBlood, UANegative Negative - 50 Surjit/mcLNOMS HealthcareClarity, UAClearNOMS HealthcareColor, UA YellowNOMS HealthcareGlucose, UANegativeNegative - 2000(110) ++++ mg/dLNOOH HealthcareInterpretation and review of laboratory resultsNormalSALT LAKE [facility] Healthcare Ketones, UANegativeNegative - 160(16) ++++ mg/dLNOMS HealthcareLeukocytes, UA NegativeNegative - 500+++ [place]/mcLNOOH HealthcareNitrite, UANegativeNegative - PositiveNOMS HealthcarepH, UA65 - 9NOMS HealthcareProtein, UANegativeNegative - 2000(20) ++++ mg/dLNOOH HealthcareSpec Grav, UA1.0151 - 1.03NOOH Healthcare Urobilinogen, UA1.00.2 - 12 mg/dLNOOH HealthcareNOOH HealthcareUrinalysis macro (dipstick) panel (U)on 84-87-9170Dumsfvdra, UANegativeNegative - 4(70) +++ mg/dL NOMS HealthcareBlood, UANegativeNegative - 50 Surjit/mcLNOMS HealthcareClarity, UA ClearNOMS HealthcareColor, UAYellowNOMS HealthcareGlucose, UANegativeNegative - 2000(110) ++++ mg/dLNOOH HealthcareInterpretation and review of laboratory resultsAbnormalNOMS HealthcareKetones, UANegativeNegative - 160(16) ++++ mg/dL NOMS HealthcareLeukocytes, UAPositiveNegative - 500+++ [place]/mcLNOMS Healthcare Comment on above:2+Nitrite, UANegativeNegative - PositiveNOMS HealthcarepH, UA65 - 9NOMS HealthcareProtein, UANegativeNegative - 2000(20) ++++ mg/dLNOMS HealthcareSpec Grav, UA1.021 - 1.03NOOH HealthcareUrobilinogen, UA1.00.2 - 12 mg/dLSSM Health Cardinal [facility] HealthcareALL CBC WITH AUTO DIFFon 24-21-6511FELAJXHDK ABSOLUTE AUTO0.1NOMS HealthcareBasophils/100 WBC (Bld)0.5 %0.2 - 2.0 %NOMMercy Hospital St. John'SEosinophils/100 WBC (Bld)4 %0.9 - 7.0 %[facility] Medical CenterErythrocyte distribution width (RBC) [Ratio]12.2 %11.0 - 15.0 %[facility] CenterIMMATURE GRANULOCYTES ABS AUTO0.08HighCenterpoint Medical CenterImmature granulocytes/100 WBC (Bld) 0.6 %High0.0 - 0.5 %[facility] CenterInterpretation and review of laboratory resultsAbnormalCenterpoint Medical CenterLYMPHOCYTES ABSOLUTE AUTO2.6NOThree Rivers Healthcare Lymphocytes/100 WBC (Bld)18.4 %Low20.5 - 60.0 %[facility] CenterH (RBC) [Entitic mass]31.5 pg26.7 - 34.0 pgSaint Louis University Health Science CenterHC (RBC) [Mass/Vol]34.1 g/dL29.9 - 35.2 g/dLSaint Louis University Health Science CenterV (RBC) [Entitic vol]92.4 fL81.0 - 99.0 fLCenterpoint Medical CenterMONOCYTES ABSOLUTE AUTO0.6Centerpoint Medical CenterMonocytes/100 WBC (Bld)4.3 % 1.7 - 12.0 %[facility] CenterNEUTROPHILS ABSOLUTE AUTO10.1HighCenterpoint Medical Center Neutrophils/100 WBC (Bld)72.2 %43.0 - 75.0 %[facility] CenterPlatelet mean volume (Bld) [Entitic vol]10.2 fL9.5 - 13.5 fLCenterpoint Medical CenterTB EO #0.6[facility] TBH MOV847YGCJShriners Hospitals for Children RBC3.94LowHarry S. Truman Memorial [facility]' [facility] WBC13.9HighCenterpoint Medical CenterCLINISYNCCBC without diffon 19-40-2105Ptndemtvb (Bld) [#/Vol]261 10*3/uLMercy Health Urbana HospitalRb Mcv (Fl) By Automated Count92.4Mer[facility] HospitalDrug Screen, Urineon 40-31-9034Gigbttykdpy/MethamphetamineNegative [facility] HospitalBarbituratesNegativeMercy Health Urbana Hospital BenzodiazepinesNegativeMercy Health Urbana HospitalCocaine MetaboliteNegative [facility] HospitalMethadoneNegativeMercy Health Urbana HospitalOpiatesNegative [facility] HospitalOxycodoneNegativeMercy Health Urbana HospitalPhencyclidine NegativeMercy Health Urbana HospitalThc Marijuana, UrineNegativeMercy Health Urbana HospitalHBV surface Ag IA Qlon 67-29-2914Axhrdertr B Surface AntigenNegative [facility]ana HospitalHCV Ab IA Qlon 70-04-8163VKQ Ab Ql (S)Non-Reactive [facility] HospitalHIV 1+2 Ab+HIV1 p24 Ag IA Qlon 86-28-4567MFK 1&2 AB/AG Non-ReactiveMercy Health Urbana HospitalHemoglobin A1con 93-69-2043GjQ3o (Bld) [Mass fraction]5.1 %4.0 - 6.0 %[facility] HospitalLaboratory - Hematology and Cell countson 10-48-1352Yayiuqvbyc (Bld) [Volume fraction]36.4 %[facility] Hemoglobin (Bld) [Mass/Vol]12.4 g/dLCenterpoint Medical CenterNo Panel Informationon 00-03-2017ISMK HealthcareRubella IGG immune statuson 44-99-7267Njdofoc immune IgGIMMUNEMercy Health Urbana HospitalT. pallidum IgG+IgM IA Ql (S)Ordered By: Christina Bertrand on 83-89-7687JxgtqudoUao-ReactiveMercy Health Urbana HospitalType and screenon 75-38-8118Rhs/Rh(D)PositiveMercy Health Urbana HospitalHCG ( test) Ql (U)on 16-53-0793Bvyjwjfuhduzur and review of laboratory resultsAbnormSelect [facility]ty [facility] Preg Test, UrPositiveNegativeNOThree Rivers HealthcareNOOH HealthcareUS OB TRANSVAGINALon 69-06-8891ZI OB TRANSVAGINALFINDINGS: A single intrauterine gestational sac [...] No LMP recorded.Urinalysis macro (dipstick) panel (U)on 61-98-8707Kgyejfmhc, UA NegativeNegative - 4(70) +++ mg/dLNOMS HealthcareBlood, UANegativeNegative - 50 Surjit/[facility] University HospitalNOOH HealthcareClarity, UAClearNOMS HealthcareColor, UAYellowNOMS HealthcareGlucose, UANegativeNegative - 2000(110) ++++ mg/dLNOOH Healthcare Interpretation and review of laboratory resultsNormalNOMS HealthcareKetones, UA NegativeNegative - 160(16) ++++ mg/dLNOOH HealthcareLeukocytes, UANegative Negative - 500+++ Kaleigh/mcLNOOH HealthcareNitrite, UANegativeNegative - Positive NOMS HealthcarepH, UA75 - 9NOMS HealthcareProtein, UANegativeNegative - 2000(20) ++++ mg/dLNOOH HealthcareSpec Grav, UA1.0051 - 1.03NOMS HealthcareUrobilinogen, UA0.20.2 - 12 mg/dLNOMS HealthcareNOMS HealthcareALL PROGESTERONEon 01-18-2025 PROGESTERONE8.7 ng/mL.[facility] HealthcareComment on above:Follicular phase 0.1 - 0.9 Luteal phase 1.8 - 23.9 Ovulation phase 0.1 - 12.0 First trimester 11.0 - 44.3 Second trimester 25.4 - 83.3 Third trimester 58.7 - 214.0 Postmenopausal 0.0 - 0.1 Performed at: [address] [id number] Motion Study Technician: Yobany Blount PhD, Phone: [phone] [facility] HospitalPATHOLOGY REQUEST FOR LAB CORPon 56-35-6011TJVLMAOCH REQUEST FOR LAB CORPNOMS HealthcareComment on above:See report. Scanned copy available in EMR.SKIN SPECIMENFIREndless Mountains Health SystemsALL PROGESTERONEon 23-75-4884XFLIVMGVUHUO01.9 ng/mL.NOMS HealthcareComment on above:Follicular phase 0.1 - 0.9 Luteal phase 1.8 - 23.9 Ovulation phase 0.1 - 12.0 First trimester 11.0 - 44.3 Second trimester 25.4 - 83.3 Third trimester 58.7 - 214.0 Postmenopausal 0.0 - 0.1 Performed at: [address] [id number] Motion Study Technician: Yobany Blount PhD, Phone: [phone] [facility] HospitalPathology Request for Lab Corpon 87-21-6014Nckmtxezn Request for Lab CorpNoDavis Regional Medical Center Physician GroupComment on above:Order Comment: SKIN SPECIMENResult Comment: See report. Scanned copy available in EMR. PERFORMED BY: [place] [address] PATHOLOGIST GATE AGENT ANAHI TRAN M.D.Performed By: #### PATH TO [facility] #### [place] [address] USAIGP,APTIMA HPV,AGE GDLNon 88-87-9046FPV GDLN ACOG TESTING Note.NOMS HealthcareComment on above:TESTS RESULT FLAG UNITS REF RANGE LAB Clinician Provided Cytology Information Source.............Cervix;Endocervix No. of containers..01 ThinPrep Vial Age Alberto FORREST Marjorie... 30 FLAG LEGEND: L-Low Normal,H-High Normal,LL-Alert Low,HH-Alert High <-Panic Low,>-Panic High,A-Abnormal,AA-Critical Abnormal Performed at: 01 =[address] [address] Vonnie Woodard MD, HPV APTIMANegativeNegativeNOMS HealthcareComment on above:This nucleic acid amplification test detects fourteen high- risk HPV types (16,18,31,33,35,39,45,51,52,56,58,59,66,68) without differentiation. Performed at: =[address] [id number] Motion Study Technician: Vonnie Woodard MD, Phone: [phone] Performed at: [address] [id number] Motion Study Technician: Vonnie Woodard MD, Phone: [phone] IGP, APTIMA HPV, RFX 16/18,45Note.NOMS HealthcareComment on above:TESTS RESULT FLAG UNITS REF RANGE LAB DIAGNOSIS: 02 NEGATIVE FOR INTRAEPITHELIAL LESION OR MALIGNANCY. Specimen adequacy: 02 Satisfactory for evaluation. Endocervical and/or squamous metaplastic cells (endocervical component) are present. Performed by: 02 Quiana Vyas, Car Salesman (ASCP) . 02 Note: Note 02 The [...] <-Panic Low,>-Panic High,A-Abnormal,AA-Critical Abnormal Performed at: [address] [address] Vonnie Woodard MD, BRUSH-SPATULA CERVIX ENDOCERVIX CLINISYNCNOThree Rivers HealthcareALL PROGESTERONEon 79-76-3888XTMMEJQAPSNN95.2 ng/mL.[facility] HealthcareComment on above:Follicular phase 0.1 - 0.9 Luteal phase 1.8 - 23.9 Ovulation phase 0.1 - 12.0 First trimester 11.0 - 44.3 Second trimester 25.4 - 83.3 Third trimester 58.7 - 214.0 Postmenopausal 0.0 - 0.1 Performed at: [facility] [address], [place] [id number] Motion Study Technician: Yobany Blount PhD, Phone: [phone] CLINISYNCNOThree Rivers Healthcare AND AUTO DIFFon 89-23-4041LHNFCTDK BASOPHIL0.1 X10E9/LNormal0.0-0.2PAshtabula County Medical CenterComment on above:Performed By: #### CBCGavin, CMP, 50963-2, 48708-3, THYR #### [facility] ([id number]) [address] [place] [address] 87472SSTWDBOE NEUTROPHIL6.9 X10E9/LHigh1.5-6.6ProMichael E. Debakey Department Of Veterans Affairs Medical CenterComment on above:Performed By: #### CBCA, [facility], , 45508-8, THYR #### [facility] ([id number]) [address] [place] [address] 76188Svrtisrtt/100 WBC (Bld)1.1 %NormalUC Health Comment on above:Performed By: #### CBCA[facility], , [address]-7, THYR #### [facility] ([id number]) [address] [place] [address] 37892Cjljxshblat (Bld) [#/Vol]0.3 10*3/uLNormal0.0-0.4UC HealthComment on above:Performed By: #### CBCA, [facility], , 18607-3, THYR #### [facility] ([id number]) [address] [place] [address] 20470Xxivebdkabr/100 WBC (Bld)2.3 %NormalUC Health Comment on above:Performed By: #### CBCA, CMP, , 25303-7, THYR #### [facility] ([id number]) [address] [place] [address] 08406Gxlvssxbwov distribution width (RBC) [Ratio]12.6 %Normal 11.5-15.0UC HealthComment on above:Performed By: #### CBCA, CMP, , 81138-0, THYR #### [facility] ([id number]) [address] [place] [address] 96297Ezrplznvcm (Bld) [Volume fraction]40.4 %Ptemsd31-12EenOpqvwwMichael E. Debakey Department Of Veterans Affairs Medical CenterComment on above:Performed By: #### KARSON, CMP, 50750-3, 35221-0, THYR #### [facility] ([id number]) [address] [place] [address] 24380Zydcjiplmj (Bld) [Mass/Vol]13.7 g/wTBvqgun67.7-15.5PAshtabula County Medical CenterComment on above:Performed By: #### KARSON, CMP, 37268-3, 08361-7, THYR #### [facility] ([id number]) [address] [place] [address] 04185Yhqderfnytt (Bld) [#/Vol]3.6 10*3/uLHigh1.0-3.5PAshtabula County Medical CenterComment on above:Performed By: #### KARSON, CMP, 35332-9, 93042-8, THYR #### [facility] ([id number]) [address] [place] [address] 25847Whiyykustpp/100 WBC (Bld)31.6 %NormalUC Health Comment on above:Performed By: #### CBCGavin, CMP, 21161-9, 56156-7, THYR #### [facility] ([id number]) [address] [place] [address] 17944IBL (RBC) [Entitic mass]30.9 pdZyosob07-10AlmFwxddbMichael E. Debakey Department Of Veterans Affairs Medical CenterComment on above:Performed By: #### CBCA, CMP, 01084-8, 78605-0, THYR #### [facility] ([id number]) [address] [place] [address] 77069TTMA (RBC) [Mass/Vol]34.0 g/zAWgfklx18-41EbiKiscepUC HealthComment on above:Performed By: #### CBCA, CMP, 31947-4, 99890-6, THYR #### [facility] ([id number]) [address] [place] [address] 80280YJG (RBC) [Entitic vol]91 bWEkyfym73-709ElxRlvcjo Fremont HospitalComment on above:Performed By: #### CBCA, CMP, 89443-9, 49597-9, THYR #### [facility] ([id number]) [address] [place] [address] 76286Kvesozhni (Bld) [#/Vol]0.6 10*3/uLNormal0-0.9UC HealthComment on above:Performed By: #### CBCA, CMP, 80047-4, 13610-8, THYR #### [facility] ([id number]) [address] [place] [address] 53794Hphhkuiba/100 WBC (Bld)5.4 %[facility] Comment on above:Performed By: #### CBCA, CMP, 15004-3, 95288-7, THYR #### [facility] ([id number]) [address] [place] [address] 61522Kxottkrsise/100 WBC (Bld)59.6 %[facility] Comment on above:Performed By: #### CBCA, CMP, 12705-7, 69540-3, THYR #### [facility] ([id number]) [address] [place] [address] 62170Jtddgdds mean volume (Bld) [Entitic vol]7.9 fLNormal7-12 ProMUniversity of California, Irvine Medical CenterComment on above:Performed By: #### CBCA, CMP, 54114- 9, 39886-3, THYR #### [facility] ([id number]) [address] [place] [address] 32494Oiyaygwfn (Bld) [#/Vol]346 10*3/gVSudfcw016-739DekXgsucl Fremont HospitalComment on above:Performed By: #### KARSON, CMP, 21643-9, 52344-4, THYR #### [facility] ([id number]) [address] [place] [address] 91720NNK COUNT4.44 X10E12/LNormal3.80-5.20UC [facility] Comment on above:Performed By: #### KRASON, CMP, 93009-3, 80971-8, THYR #### [facility] ([id number]) [address] [place] [address] 66249LRC (Bld) [#/Vol]11.5 10*3/uLHigh4.0-11.0UC HealthComment on above:Performed By: #### KARSON, CMP, 56590-6, 30407-8, THYR #### [facility] ([id number]) [address] [place] [address] 05096WKLGTRQEMPMDH METABOLIC PANELon 51-39-3958Ywpttkw [Mass/Vol]4.0 g/dLNormal3.2-5.3PAshtabula County Medical CenterComment on above:Performed By: #### KARSON, CMP, 19905-2, 48637-8, THYR #### [facility] ([id number]) [address] [place] [address] 28518REQ [Catalytic activity/Vol]50 U/PJpwpst00-784GurLzuzcbMichael E. Debakey Department Of Veterans Affairs Medical CenterComment on above:Performed By: #### MATTHEWA, CMP, 50082-5, 67567-9, THYR #### [facility] ([id number]) [address] [place] [address] 31592OCX [Catalytic activity/Vol]19 U/LNormal0-31PAshtabula County Medical CenterComment on above:Performed By: #### LUKAS TY, 48298-0, 58353-8, THYR #### [facility] ([id number]) [address] [place] [address] 06355Eebve gap [Moles/Vol]11 mmol/LNormal5-15ProMichael E. Debakey Department Of Veterans Affairs Medical CenterComment on above:Performed By: #### KARSON, LUKAS, 59668-6, 15983-1, THYR #### [facility] ([id number]) [address] [place] [address] 89325YAE [Catalytic activity/Vol]18 U/LNormal0-41ProMichael E. Debakey [facility] Of Veterans Affairs Medical CenterComment on above:Performed By: #### LUKAS TY, 56382-9, 84053-0, THYR #### [facility] ([id number]) [address] [place] [address] 67596Tjtrpeabi [Mass/Vol]0.4 mg/dLNormal0.3-1.2PAshtabula County Medical CenterComment on above:Performed By: #### LUKAS TY, 82098-1, 24624-1, THYR #### [facility] ([id number]) [address] [place] [address] 69378Gkjbkls [Mass/Vol]9.4 mg/dLNormal8.5-10.5PAshtabula County Medical CenterComment on above:Performed By: #### KARSON, LUKAS, 82120-6, 90013-1, THYR #### [facility] ([id number]) [address] [place] [address] 75004Tiammvlt [Moles/Vol]106 mmol/HFjzauj35-903PbyErmqulMichael E. Debakey Department Of Veterans Affairs Medical CenterComment on above:Performed By: #### LUKAS TY, 48874-0, 28785-1, THYR #### [facility] ([id number]) [address] [place] [address] 79186FQ8 [Moles/Vol]23 mmol/HBrdplj82-80ZxcYspmwaAshtabula County Medical Center Comment on above:Performed By: #### LUKAS TY, 28534-0, 19726-0, THYR #### [facility] ([id number]) [address] [place] [address] 84530Ukvqbczdfk [Mass/Vol]0.76 mg/dLNormal0.40-1.00UC HealthComment on above:Result Comment: METHOD TRACEABLE TO IDMS STANDARD Performed By: #### LUKAS TY, 23840-5, 74944-2, THYR #### [facility] ([id number]) [address] [place] [address] 70512iVFA (CKD-EPI) NON-RACE DEPENDENT>90Normal>59ProMichael E. Debakey Department Of Veterans Affairs Medical CenterComment on above:Result Comment: Reported eGFR is based on the CKD-EPI 2020 equation that does not use a race coefficient.Performed By: #### LUKAS TY, , 64949-9, THYR #### [facility] ([id number]) [address] [place] [address] 42884Mfokdbl [Mass/Vol]114 mg/pHTwpl05-16UuqYiyjskUC Health Comment on above:Performed By: #### LUKAS TY, , 23507-7, THYR #### [facility] ([id number]) [address] [place] [address] 16502Ypiurhotn [Moles/Vol]4.1 mmol/LNormal3.5-5.0UC HealthComment on above:Performed By: #### LUKAS TY, 86050-1, 77407-0, THYR #### [facility] ([id number]) [address] [place] [address] 82772Ribqyax [Mass/Vol]7.3 g/dLNormal6.0-8.0UC HealthComment on above:Performed By: #### CBCGavin, CMP, 50361-0, 02094-7, THYR #### [facility] ([id number]) [address] [place] [address] 19449Sdghvk [Moles/Vol]140 mmol/LAftiam251-215VtoOujtop Fremont HospitalComment on above:Performed By: #### KARSON, LUKAS, 69466-5, 68273-6, THYR #### [facility] ([id number]) [address] [place] [address] 31530Aeyc nitrogen [Mass/Vol]13 mg/dLNormal5-23UC HealthComment on above:Performed By: #### KARSON, LUKAS, 16643-5, 71547-4, THYR #### [facility] ([id number]) [address] [place] [address] 74569Xrqien D-dimer DDU (PPP) [Mass/Vol]on 11-04-2024D DIMER<150 Normal<255UC HealthCombeaumont hospital on above:Result Comment: Results <255 ng/mL DDU: The presence of a VTE can safely be excluded with a negative D-Dimer result and Wells score. A negative result doesn't exclude the possibility of DIC. The test be repeated along with other diagnostic tests if the patient's symptoms persist or worsen. [email or web address] By: #### CBCA, CMP, 75767-0, 40001-9, THYR #### [facility] ([id number]) [address] [place] [address] 09763OUA ( test) Ql (U)on 44-14-7252Rrxu HCG ( test) Ql (U)NegativeNormalNEGProMichael E. Debakey Department Of Veterans Affairs Medical CenterComment on above: Performed By: #### 2106-3 #### [facility] ([id number]) [address] [place] [address], [place] [address]SOOOEINDSok 23-41-6383Ukyixisav [Mass/Vol]2.3 mg/dLNormal 1.8-2.6ProMichael E. Debakey [facility] Of Veterans Affairs Medical CenterComment on above:Performed By: #### LUKAS TY, 19654-2, 91308-2, THYR #### [facility] ([id number]) [address] [place] [address], [place] [address]UIWKXIA PROFILEon 37-78-6392Jllx T4 [Mass/Vol]0.88 ng/dLNormal 0.61-1.60ProMichael E. Debakey [facility] Of Veterans Affairs Medical CenterComment on above:Performed By: #### LUKAS TY, 55291-0, 76290-8, THYR #### [facility] ([id number]) [address] [place] [address], [place] [address]FAM9.78 uIU/mLNormal0.49-4.67ProMichael E. Debakey [facility] Of Veterans Affairs Medical CenterComment on above:Performed By: #### LUKAS TY, 34480-7, 53741-6, THYR #### [facility] ([id number]) [address] [place] [address] [place] [address]TOO MACROSCOPIC NURon 25-57-6176WONLXRHWG NURNegativeNormalNEG ProMUniversity of California, Irvine Medical CenterComment on above:Performed By: #### NUM #### [facility] ([id number]) [address] [place] [address], [place] [address]GVCRS/HGB NURTraceAbnormalNEGUC HealthComment on above:Performed By: #### NUM #### [facility] ([id number]) [address] [place] [address], [place] [address]IFQRKZN NURNegativeNormalNEGUC HealthComment on above:Performed By: #### NUM #### [facility] ([id number]) [address] [place] [address] 75089APBYQOF NURNegativeNormalNEGUC HealthComment on above:Performed By: #### NUM #### [facility] ([id number]) [address] [place] [address] 00970JPHBMDLEX ESTERASE NURSmallAbnormalNEGUC HealthComment on above:Performed By: #### NUM #### [facility] ([id number]) [address] [place] [address] 08582OMJGPWO NURNegativeNormalNEGUC HealthComment on above:Performed By: #### NUM #### [facility] ([id number]) [address] [place] [address] 11467FF NUR6.7Gwtipc6.0-8.5PAshtabula County Medical CenterComment on above:Performed By: #### NUM #### [facility] ([id number]) [address] [place] [address] 25874AFVPNOU NURNegativeNormalNEGUC HealthComment on above:Performed By: #### NUM #### [facility] ([id number]) [address] [place] [address] [place] [address]ALOYARDI GRAVITY NUR1.338Hdokpj9.003-1.035ProMichael E. Debakey Department Of Veterans Affairs Medical CenterComment on above:Performed By: #### NUM #### [facility] ([id number]) [address] [place] [address] 26254RCBJCOVEWIBR NUR0.2 eu/dLNormal<1.1PAshtabula County Medical Center Comment on above:Performed By: #### NUM #### [facility] ([id number]) [address] [place] [address] 43242HS CHEST 1 VWon 07-13-4096VE CHEST 1 VWXR CHEST 1 VW History: Palpitations Exam/Technique: Portable upright AP chest Comparison: 11/12/2022 Findings: There is no active pulmonary or pleural disease displayed. Cardiac and mediastinal contours appear within normal limits on this AP projection. IMPRESSION: No evidence of active pulmonary disease. Finalized by Tres Giron MD on 11/04/2024 1:02 AMNormalOhioHealth Nelsonville Health Centerca [facility] PROGESTERONEon 34-41-3891JJFTAPFEBJUJ11.8 ng/mL.[facility] Comment on above:Follicular phase 0.1 - 0.9 Luteal phase 1.8 - 23.9 Ovulation phase 0.1 - 12.0 First trimester 11.0 - 44.3 Second trimester 25.4 - 83.3 Third trimester 58.7 - 214.0 Postmenopausal 0.0 - 0.1 Performed at: [facility] [employer] [id number] Motion Study Technician: Yobany Blount PhD, Phone: [phone] [facility] LIVONIAWorldStoresMercy Hospital Washington PROGESTERONEon 79-28-1016AVFHVTTQPJDA46.3 ng/mL.NOMS HealthcareComment on above:Follicular phase 0.1 - 0.9 Luteal phase 1.8 - 23.9 Ovulation phase 0.1 - 12.0 First trimester 11.0 - 44.3 Second trimester 25.4 - 83.3 Third trimester 58.7 - 214.0 Postmenopausal 0.0 - 0.1 Performed at: [facility] [address] [id number] Motion Study Technician: Yobany Blount PhD, Phone: [phone] [facility] PROGESTERONEon 71-36-5098MWNKUUDYJAUR0.5 ng/mL.NOMS HealthcareComment on above:Follicular phase 0.1 - 0.9 Luteal phase 1.8 - 23.9 Ovulation phase 0.1 - 12.0 First trimester 11.0 - 44.3 Second trimester 25.4 - 83.3 Third trimester 58.7 - 214.0 Postmenopausal 0.0 - 0.1 Performed at: [facility] [address] [id number] Motion Study Technician: Yobany Blount PhD, Phone: [phone] [facility] LIVONIAArgo Navis ConsultingFort Sanders Regional [facility] [place] PROGESTERONEon 78-64-2471BOHEERDLEQKK89.8 ng/mL.[facility] HealthcareComment on above:Follicular phase 0.1 - 0.9 Luteal phase 1.8 - 23.9 Ovulation phase 0.1 - 12.0 First trimester 11.0 - 44.3 Second trimester 25.4 - 83.3 Third trimester 58.7 - 214.0 Postmenopausal 0.0 - 0.1 Performed at: [facility] [address] [id number] Motion Study Technician: Yobany Blount PhD, Phone: [phone] [facility] CBC WITH AUTO DIFFon 61-19-9015XPIYCXJZL ABSOLUTE AUTO0.1NOMS HealthcareBasophils/100 WBC (Bld)0.6 %0.2 - 2.0 %[facility] Eosinophils/100 WBC (Bld)2.8 %0.9 - 7.0 %NOM HealthcareErythrocyte distribution width (RBC) [Ratio]12.1 %11.0 - 15.0 %NOM HealthcareHematocrit (Bld) [Volume fraction]40.6 %36.0 - 48.0 %Centerpoint Medical CenterHemoglobin (Bld) [Mass/Vol]13.5 g/dL 12.0 - 16.0 g/dLCenterpoint Medical CenterIMMATURE GRANULOCYTES ABS AUTO0.02NOMS [facility] Immature granulocytes/100 WBC (Bld)0.3 %0.0 - 0.5 %[facility]'SLYMPHOCYTES ABSOLUTE AUTO1.8[facility]OMS HealthcareLymphocytes/100 WBC (Bld)23.0 %20.5 - 60.0 %[facility] CenterH (RBC) [Entitic mass]30.6 pg26.7 - 34.0 pgNOLakeland Regional HospitalHC (RBC) [Mass/Vol]33.3 g/dL29.9 - 35.2 g/dLCenterpoint Medical CenterMCV (RBC) [Entitic vol]92.1 fL 81.0 - 99.0 fLNOThree Rivers HealthcareMONOCYTES ABSOLUTE AUTO0.5N[facility]S [facility] Monocytes/100 WBC (Bld)6.6 %1.7 - 12.0 %NOM HealthcareNEUTROPHILS ABSOLUTE AUTO 5.3NOMS HealthcareNeutrophils/100 WBC (Bld)66.7 %43.0 - 75.0 %[facility] Platelet mean volume (Bld) [Entitic vol]9.8 fL9.5 - 13.5 fLNOMS [facility] EO #0.2[facility] CenterTBH [id number] [facility] RBC4.41[facility] WBC8.0 NOMS HealthcareCLINISYNCNOMS HealthcareUS PELVIS W/ TRANSVAGINALon [id number] [address] Ultrasound Report Signed Patient: ELLEN RAMIRES MR#: [id number] : 1990 Acct:[id number] Age/Sex: 34 / F ADM Date: 04/24/24 Loc: US Attending Dr: Caesar Broderick D.O. Ordering Physician: Caesar Broderick D.O. Date of Service: 04/24/24 Procedure(s): US pelvis w/ transvaginal Accession Number(s): [id number] cc: Caesar Broderick D.O.; Sabiha Aviles [place] [address] Patient Name: ELLEN RAMIRES MRN: [id number] date: 1990 Sex: F Assigned Patient Location: US Current Patient Location: Accession/Order Number: [id number] Exam Date: 04/24/2024 14:00 Report Date: 04/25/2024 [...] Dean M.D. Signed By: 04/25/2437 DD/ TD/TT: [facility] Operator:TBHRadiology, Radiologist, - 04/25/2024 [place] [address] Ultrasound Report Signed Patient: ELLEN RAMIRES MR#: [id number] : 1990 Acct:[id number] Age/Sex: 34 / F ADM Date: 04/24/24 Loc: US Attending Dr: Caesar Broderick D.O. Ordering Physician: Caesar Broderick D.O. Date of Service: 04/24/24 Procedure(s): US pelvis w/ transvaginal Accession Number(s): [id number] cc: Caesar Broderick D.O.; Sabiha Aviles SENIOR DIRECTOR [facility] [place] [id number] Patient Name: ELLEN RAMIRES MRN: [id number] date: 1990 Sex: F Assigned Patient Location: Current Patient Location: Accession/Order Number: [id number] Exam Date: 04/24/2024 14:00 Report Date: 04/25/2024 [...] M.D. Signed By: 04/25/2437 DD/ 3 TD/TT: [place]one Operator: [facility] CenterRadiology Study observation (narrative)[facility] CenterUS PELVIS W/ TRANSVAGINALOrdered By: Radiologist Radiology on 86-68-8712KEWNCenterpoint Medical Center Work Phone: aLL CBC WITH AUTO DIFFon 15-40-8447UQBUQTQRJ ABSOLUTE AUTO0.1NOMS HealthcareBasophils/100 WBC (Bld)0.5 %0.2 - 2.0 %[facility] Eosinophils/100 WBC (Bld)2.8 %0.9 - 7.0 %[facility] CenterErythrocyte distribution width (RBC) [Ratio]12.0 %11.0 - 15.0 %[facility] CenterHematocrit (Bld) [Volume fraction]39.7 %36.0 - 48.0 %[facility] CenterHemoglobin (Bld) [Mass/Vol]13.4 g/dL 12.0 - 16.0 g/dLCenterpoint Medical CenterIMMATURE GRANULOCYTES ABS AUTO0.03NOThree [facility] Immature granulocytes/100 WBC (Bld)0.3 %0.0 - 0.5 %[facility] CenterInterpretation and review of laboratory resultsAbnormalNOThree Rivers HealthcareLYMPHOCYTES ABSOLUTE AUTO2.9NOMS [facility] CenterLymphocytes/100 WBC (Bld)24.4 %20.5 - 60.0 %[facility] CenterH (RBC) [Entitic mass]30.7 pg26.7 - 34.0 pgSaint Louis University Health Science CenterHC (RBC) [Mass/Vol]33.8 g/dL29.9 - 35.2 g/dLSaint Louis University Health Science CenterV (RBC) [Entitic vol]91.1 fL 81.0 - 99.0 fLSALT [facility] HealthcareMONOCYTES ABSOLUTE AUTO0.6[facility] Monocytes/100 WBC (Bld)5.2 %1.7 - 12.0 %[facility] HealthcareNEUTROPHILS ABSOLUTE AUTO 8.0HighNOOH HealthcareNeutrophils/100 WBC (Bld)66.8 %43.0 - 75.0 %[facility] HealthcarePlatelet mean volume (Bld) [Entitic vol]10.1 fL9.5 - 13.5 fLCenterpoint Medical CenterTBH EO #0.3NOMS HealthcareTB AEF060AYIQ [facility] CenterTB RBC4.36NOMS [facility] Medical CenterTBH WBC12.0HighNOOH HealthcareCLINISYNCNOMS HealthcarePOCT EKGOrdered By: Sheyla Powell on 14-19-6307SncCgtiedSuburban Community Hospital & Brentwood HospitalNo Panel Information Ordered By: Pinky Singh on 13-22-2722Numdb Strep (POC)[facility] HospitalCytology Cervical or vaginal smear or scraping studyon 11-19-2022 [facility] HealthcareCOVID/FLU/RSV RT-PCRon 14-80-4105OMMD-CoV-2 (COVID-19) RNA PEACE+probe Ql (Unsp spec)PositiveNort The Moment Other COVID/FLU/RSV RT-PCRNegativeNort The Moment Other Vital Signs Date TimeVital SignValuePerforming ZljwrfdaaNmukovju04-94-0698 13:42-0500Body mass index (BMI) [Ratio]43.33 kg/m8Ywtkh Davie DO Work Phone: [facility] Medical CenterBzkhoekqqj39-76-5899 13:42-0500Body qsujjo372.28 kgCorey Davie DO Work Phone: NOThree Rivers HealthcareRxksjwatdf77-98-2069 13:42-0500Diastolic blood tecrfdse21 mm[Hg]Caesar Davie DO Work Phone: [phone] [place], [place] [address]Vtgnngoozt29-11-3297 13:42-0500Systolic blood xnoqwqgs934 mm[Hg]Caesar Davie DO Work Phone: 1([phone] [place], [place] 5213410-15-2025 09:03-0400Diastolic blood ehgszxsq78 mm[Hg]Rody Uyen SENIOR DIRECTOR Work Phone: 1(419)[facility] [place], [place] [address]Tlputgbwfu10-57-2064 09:03-0400Systolic blood zzxirqrl549 mm[Hg]Rody Uyen SENIOR DIRECTOR Work Phone: 1(419)[address] [place] [address]-15-2025 09:02-0400Body mass index (BMI) [Ratio]42.99 kg/g9Edyhyuwn Uyen SENIOR DIRECTOR Work Phone: 1(241)[address] [place], [place] 5213410-15-2025 09:02-0400Body mqqirj278.25 kgKristina Uyen SENIOR DIRECTOR Work Phone: 1(419)[address] [place], [place] 5213410-09-2025 16:31-0400Body mass index (BMI) [Ratio]43.49 kg/c9Avgbkiig Uyen SENIOR DIRECTOR Work Phone: 1(915)[address] [place], [place] 5213410-09-2025 16:31-0400Body .73 kgKristina Uyen SENIOR DIRECTOR Work Phone: 1(338)[facility] [place], [place] [address]Vmxadzyjuz55-03-3148 16:31-0400Diastolic blood ldgiqfei47 mm[Hg]Rody Uyen SENIOR DIRECTOR Work Phone: 1(419)[address] [place], [place] 5213410-09-2025 16:31-0400Systolic blood yitmmxbq742 mm[Hg]Rody Uyen SENIOR DIRECTOR Work Phone: 1(155)[address] [place], [place] 5213410-02-2025 15:07-0400Body mass index (BMI) [Ratio]43.03 kg/p6Kprraswm Uyen SENIOR DIRECTOR Work Phone: 1(419)[address] [place], [place] 5213410-02-2025 15:07-0400Body .37 kgKristina Uyen SENIOR DIRECTOR Work Phone: 1(971)[address] [place], [place] 5213410-02-2025 15:07-0400Diastolic blood ddbeqdpz64 mm[Hg]Rody Qiu SENIOR DIRECTOR Work Phone: 1(206)[address] [place], [place] 5213410-02-2025 15:07-0400Systolic blood vzqghnee530 mm[Hg]Rody Qiu SENIOR DIRECTOR Work Phone: 1(419)[address] [place], [place] 5213409-26-2025 07:51-0400Body enqqck082.7 cmYordy Cruz MD Work Phone: 1(419)[address] [place], [place] 5256109-26-2025 07:51-0400Body mass index (BMI) [Ratio]42.96 kg/m2Yordy Cruz MD Work Phone: 1(419)[address] [place], [place] 5256109-26-2025 07:51-0400Body dipozc044.14 kgYordy Cruz MD Work Phone: 1(419)[address] [place], [place] 5256109-26-2025 07:51-0400Diastolic blood vjzebmma57 mm[Hg]Yordy Cruz MD Work Phone: 1(419)[address] [place], [place] 5256109-26-2025 07:51-0400Heart rate 87 /Glenna Cruz MD Work Phone: 1(419)[address] [place], [place] 5256109-26-2025 07:51-0400Systolic blood mm[Hg]Yordy Cruz MD Work Phone: 1(158)[address] [place], [place] 5256109-04-2025 11:30-0400Body mass index (BMI) [Ratio]42.88 kg/b6Bsavo Davie DO Work Phone: 1(439)[facility] [place], [place] [address]Ejamywpgnk10-45-5792 11:30-0400Body zlcvsy849.91 kgCorey Davie DO Work Phone: 1(458)[address] [place], [place] 5213409-04-2025 11:30-0400Diastolic blood poeqewkc84 mm[Hg]Caesar Davie DO Work Phone: 1(319)[address] [place], [place] 5213409-04-2025 11:30-0400Systolic blood kpezwnzg323 mm[Hg]Caesar Davie DO Work Phone: 1(534)[address] [place], [place] 5213408-21-2025 11:00-0400Body mass index (BMI) [Ratio]42.63 kg/t7Rvtde Davie DO Work Phone: 1(620)025-[address] [place], [place] [address]Ziekpacfmj91-83-4594 11:00-0400Body xffbso097.19 kgCorey Davie DO Work Phone: 1(283)031-[address] [place], [place] [address]Qidesnnvhy15-02-9892 11:00-0400Diastolic blood thryemlq95 mm[Hg]Caesar Davie DO Work Phone: 1(364)029-[address] [place], [place] [address]Dcpngudhwg19-10-5835 11:00-0400Systolic blood yeqgnlmo571 mm[Hg]Caesar Davie DO Work Phone: 1(118)622-[address] [place], [place] [address]Zbouipacjs01-23-5404 11:42-0400Body mass index (BMI) [Ratio]42.29 kg/t2Qcvqw Davie DO Work Phone: 1(883)321-[address] [place], [place] [address]Sopxovhftf71-86-5153 11:42-0400Body nlaokh900.15 kgCorey Davie DO Work Phone: 1(047)195-[address] [place], [place] [address]Iwzyhhqmes38-58-8006 11:42-0400Diastolic blood tnyufdtt51 mm[Hg]Caesar Davie DO Work Phone: 1(729)719-[address] [place], [place] [address]Ysqdghtdup84-92-5198 11:42-0400Systolic blood wwyuyhid697 mm[Hg]Caesar Davie DO Work Phone: 1(934)265-[address] [place], [place] [address]Yqlmxsqycl30-19-4220 10:03-0400Body mass index (BMI) [Ratio]41.66 kg/y7ZpvhlCap[facility]07-11-2025 10:03-0400Body weight 124.29 kgCap[facility]07-11-2025 10:03-0400Diastolic blood cpxycotj64 mm[Hg][facility]07-11-2025 10:03-0400Systolic blood ejjydjgy289 mm[Hg][facility]05-15-2025 10:52-0400Body vgzetg713.7 Gilmer Lopez MD Work Phone: [facility]05-15-2025 10:52-0400 Body mass index (BMI) [Ratio]40.84 kg/g7PnufipRobbie Lopez MD Work Phone: 1(216)[address] [place], [place] 4934305-15-2025 10:52-0400 Body wpstcnkarwc70.81 [degF]Robbie Lopez MD Work Phone: 1(216)[address] [place], [place] 4934305-15-2025 10:52-0400 Body .84 kgRobbie Lopez MD Work Phone: 1(216)[address] [place], [place] 4934305-15-2025 10:52-0400 Diastolic blood mm[Hg]Robbie Lopez MD Work Phone: 1(216)[address] [place], [place] 4934305-15-2025 10:52-0400 Heart rate73 /minRobbie Lopez MD Work Phone: 1(216)[address] [place], [place] 4934305-15-2025 10:52-0400 Systolic blood pbfyoaxq372 mm[Hg]Robbie Lopez MD Work Phone: 1(216)[address] [place], [place] 4934304-29-2025 13:38-0400 Body mass index (BMI) [Ratio]40.35 kg/h8Wnwdv Davie DO Work Phone: 1(476)336-[address] [place], [place] [address]Jnkgyktqtk41-73-6551 13:38-0400Body .39 kgCorey Davie DO Work Phone: 1(784)282-[address] [place], [place] [address]Ezfnwmyzoy67-62-3352 13:38-0400Diastolic blood afghidsm35 mm[Hg]Caesar Davie DO Work Phone: 1(930)615-[address] [place], [place] [address]Cuofbybwtu33-86-2450 13:38-0400Systolic blood zxzpvnur534 mm[Hg]Caesar Davie DO Work Phone: 1(665)420-[address] [place], [place] [address]Qasyxjkskm16-88-6854 14:36-0400Body mass index (BMI) [Ratio]40.75 kg/w7Jhxub Davie DO Work Phone: 1(033)370-[address] [place], [place] [address]Hwyqwvuzgc04-74-5330 14:36-0400Body .56 kgCorey Davie DO Work Phone: 1(594)155-[address] [place] [address]-21-2025 14:36-0400Diastolic blood xkgpwwou67 mm[Hg]Caesar Davie DO Work Phone: 1(168)708-[address] [place], [place] [address]Erqecdpbsm11-44-4034 14:36-0400Systolic blood otiicgum668 mm[Hg]Caesar Davie DO Work Phone: 1(576)[facility] [place], [place] [address]Bpiumbzehv84-83-6324 14:03-0400Diastolic blood eluwbefy93 mm[Hg]Caesar Davie DO Work Phone: 1(440)[facility] [place], [place] [address]Qixqrkmyij23-46-3152 14:03-0400Systolic blood nytrwaeq598 mm[Hg]Caesar Davie DO Work Phone: 1(406)[facility] [place], [place] [address]Kuzzpqjoal04-18-6575 13:12-0500Body mass index (BMI) [Ratio]40.01 kg/z0Qncsw Davie DO Work Phone: 1(378)[facility] [place], [place] [address]Iyeoplujff67-90-4254 13:12-0500Body olfbhk529.35 kgCorey Davie DO Work Phone: 1(249)[facility] [place], [place] [address]Gfyxzeojsr81-89-3909 13:12-0500Diastolic blood amzvspdi36 mm[Hg]Caesar Davie DO Work Phone: 1(637)[facility] [place], [place] [address]Xuyebytlry75-32-4787 13:12-0500Systolic blood iylsdrpr224 mm[Hg]Caesar Davie DO Work Phone: 1(553)[facility] [place], [place] [address]Cwebryisur09-78-4034 14:39-0400Body oswfmn710.7 cmCorey Davie DO Work Phone: 1(736)[facility] [place], [place] [address]Cjqcszajrn73-47-8761 14:39-0400Body mass index (BMI) [Ratio]39.53 kg/q0Tvvnf Davie DO Work Phone: 1(981)[facility] [place], [place] [address]Meiccmvurw98-70-8555 14:39-0400Body .94 kgCorey Davie DO Work Phone: 1(193)[facility] [place], [place] [address]Zugfvcodzd65-64-5774 14:39-0400Diastolic blood fcuslxqu42 mm[Hg]Caesra Davie DO Work Phone: 1(526)[address] [place], [place] 5213410-21-2024 14:39-0400Systolic blood myawlswg543 mm[Hg]Caesar Davie DO Work Phone: [facility] CenterMzolpoyrhn39-91-1904 11:39-0400Body mgayjc424.84 kgCorey Davie DO Work Phone: [facility] CenterBpisfmxvhg39-29-2345 11:39-0400Diastolic blood dqtmkeha96 mm[Hg]Caesar Davie DO Work Phone: [facility] CenterHelijpypuj47-43-4312 11:39-0400Systolic blood odtlgqon820 mm[Hg]Caesar Davie DO Work Phone: 1(225)720-[address] [place], [place] [address]Yypnpxmysl65-11-3620 09:36-0400Body fluhwl264.57 kgCorey Davie DO Work Phone: [facility] CenterDfgfvhiwrz80-75-5944 09:36-0400Diastolic blood lapdzkqr84 mm[Hg]Caesar Davie DO Work Phone: 1(560)291-[address] [place], [place] [address]Fpjnlwbpsf01-23-5570 09:36-0400Systolic blood aiyahckf127 mm[Hg]Caesar Davie DO Work Phone: 1(942)420-[address] [place], [place] [address]Yqarcroxpv14-92-9941 10:50-0400Body awxwwl720.7 Ji Fraire MD Work Phone: [facility]07-23-2024 10:50-0400Body mass index (BMI) [Ratio]40.66 kg/n0PlctubJames Fraire MD Work Phone: 1(746)222-[address] [place], [place] 3904407-23-2024 10:50-0400Body wnukjd073.29 kgJames Fraire MD Work Phone: [facility]07-23-2024 10:50-0400Diastolic blood aoaijtpg34 mm[Hg]James Fraire MD Work Phone: [facility]07-23-2024 10:50-0400Heart rate 83 /minJames Fraire MD Work Phone: [facility]07-23-2024 10:50-6967EoW0% (BldA) [Mass fraction]98 %James Fraire MD Work Phone: [facility]07-23-2024 10:50-0400Systolic blood shibmjec980 mm[Hg]James Fraire MD Work Phone: [facility]04-04-2024 12:26-0400Body nwjhki918.72 cmW[facility]04-04-2024 12:26-0400Body mass index (BMI) [Ratio]42.6 kg/s8SwxedqkxeWooster Community Hospital04-04-2024 12:26-0400Body icdkferwltl81.3 [degF][facility]04-04-2024 12:26-0400Body uffnmm821.11 kgW[facility]oster Community Hospital04-04-2024 12:26-0400Diastolic blood wqzrlwmi97 mm[Hg][facility] 11-24-2023 12:26-0400Heart rate75 /[facility] 11-24-2023 12:26-0400Respiratory rate18 /[facility] 11-24-2023 12:26-5277RrR7% (BldA) [Mass fraction]98 %[facility]04-04-2024 12:26-0400Systolic blood mm[Hg][facility]02-20-2023 11:35-0500Body zgnotg457.72 Glendy Singh Other [employer] Other 02-20-2023 11:35-0500Body mass index (BMI) [Ratio] 42.27 kg/l2QfermfPinky Singh Other [employer] Other 02-20-2023 11:35-0500Body diwuvbobhze09.8 [degF]Pinky Singh Other [employer] Other 02-20-2023 11:35-0500Body nyshns072.1 kgPinky Singh Other [employer] Other 02-20-2023 11:35-0500Respiratory rate18 /minPinky Singh Other [employer] Other 02-20-2023 11:35-0442DkK4% (BldA) [Mass fraction]98 % Pinky Singh Other [employer] Other Encounters Encounter DateEncounter TypeCare ProviderFacilityStart: 06-24-2025 End: 36-12-2457Waxrth flowsheetCorey Davie DO Work Phone: [facility]BGYNStart: 06-24-2025 End: 68-12-4199Odekxu flowsheetCorey Davie DO Work Phone: [facility] [place] [facility]BGYNStart: 06-24-2025 End: 29-40-7144Itylke outpatient visit 15 minutesCorey Davie DO Work Phone: noms [place] OBGYNComment on above:Second trimester ([facility]); 25 weeks gestation of ([facility]); H/O pre-eclampsia in prior , currently ([facility]); Vitamin D deficiency; Chronic hypertension affecting ([facility]); Diabetes mellitus screeningStart: 06-24-2025 End: 58-41-9538wbxasqivnxYBVVL FAZIONot AvailableStart: 06-18-2025 End: 39-13-8423Oovecl outpatient visit 25 minutesYordy Cruz MD Work Phone: [phone]-Xqcza [facility] Comment on above:Chronic hypertension affecting (Primary Dx); 20 weeks gestation of ; Anxiety disorder affecting , antepartum; Acute palmoplantar pustular psoriasis; Severe obesity due to excess calories affecting , antepartum ([facility]) Start: 06-18-2025 End: 91-04-9543eersubcosfUEL [facility] HospitalStart: 06-18-2025 End: 89-15-1896yxwndyxdguNTIWM [facility] HospitalStart: 06-05-2025 End: 56-21-9627Pnlouo flowsMark Qiu SENIOR DIRECTOR Work Phone: [facility] [place] [facility]BGYNStart: 06-05-2025 End: 62-01-2499Biwbxh flowsMark Qiu SENIOR DIRECTOR Work Phone: [facility]BGYNStart: 06-05-2025 End: 82-02-8070Ccovxgjy flow Karel Qiu SENIOR DIRECTOR Work Phone: [facility] OBGYNComment on above:Second trimester ([facility] 23 weeks gestation of ([facility])Start: 06-05-2025 End: 84-34-2740wyqjimavdnCMZTDGWK UYENNot AvailableStart: 05-30-2025 End: 41-58-7953Jpseueeg flow Karel Qiu SENIOR DIRECTOR Work Phone: [facility] OBGYNComment on above:Chronic hypertension affecting ([facility]) (Primary Dx); Second trimester ([facility]); 22 weeks gestation of ([facility])Start: 05-30-2025 End: 69-52-5218kcwobhqbkqVSWFGUCD UYENNot AvailableStart: 05-30-2025 End: 40-37-1351Fidurk flowsMark Qiu SENIOR DIRECTOR Work Phone: [facility] [place] [facility]BGYNStart: 05-30-2025 End: 48-67-8135Lxlmha flowsMark Qiu SENIOR DIRECTOR Work Phone: [facility]BGYNStart: 05-24-2025 End: 99-03-9281Ocgzok OnlyAmy Nikkie LPNMaternal- Medicine at [facility] HospitalComment on above:Acute palmoplantar pustular psoriasis (Primary Dx); Chronic hypertension affecting ; Severe obesity due to excess calories affecting , antepartum ([facility]); Hypertension affecting in second trimesterStart: 05-23-2025 End: 40-58-3879galdunpfxxPPLONKZB EBERLYNot AvailableStart: 05-23-2025 End: 62-94-2268Eyiqhqpd flow Karel Qiu NP Work Phone: NOKB [facility] OBGYNComment on above:Second trimester ([facility] 21 weeks gestation of ([facility]); induced hypertension, antepartum ([facility]); Vitamin D deficiency; H/O pre-eclampsia in prior , currently ([facility])Start: 05-23-2025 End: 40-00-3905Apskrj Jennyfer Qiu NP Work Phone: NODR [facility]BGYNStart: 05-23-2025 End: 11-93-5118Icpdox Jennyfer Qiu NP Work Phone: NOAC [facility]BGYNStart: 05-23-2025 End: 10-32-9695Fgiylmkgi Result EncounterCorey Davie DO Work Phone: noms External Department UnsolicitedStart: 05-17-2025 End: 59-55-0318Xmdzgq consultation new/estab patient 60 Hannah Hare MD Work Phone: [phone]-Ntxwi [facility] at [facility] Comment on above:Chronic hypertension affecting (Primary Dx); Acute palmoplantar pustular psoriasis; Severe obesity due to excess calories affecting , antepartum ([facility]); 20 weeks gestation of pregnancyStart: 05-17-2025 End: 36-74-7881Ibxqrq OnlyAmy Churubusco LPNMaternal- Medicine at [facility] HospitalComment on above:Acute palmoplantar pustular psoriasis (Primary Dx); Chronic hypertension affecting ; Severe obesity due to excess calories affecting , antepartum ([facility]); Hypertension affecting in second trimesterStart: 04-29-2025 End: 10-61-1293Djamggvzx department patient visitCOMMUNGALION HOSPITAL HEALTH SERVICES Community Memorial Hospitaltart: 04-25-2025 End: 45-24-7496Ckoqdk flowsheetCorey Davie DO Work Phone: noMS [place] OBGYNStart: 04-25-2025 End: 54-01-1496Jdtusj flowsheetCorey Davie DO Work Phone: noMS [place] OBGYNStart: 04-25-2025 End: 90-78-9156Hwljen outpatient visit 15 minutesCorey Davie DO Work Phone: noms [facility] OBGYNComment on above:Screening, , for anatomic survey ([facility]); Second trimester ([facility]); 17 weeks gestation of ([facility]); Screen for STD (sexually transmitted disease); Need for maternal serum alpha-protein (MSAFP) screening ([facility]); induced hypertension, antepartum ([facility]); Vitamin D deficiencyStart: 04-25-2025 End: 92-76-2717lscuwrmhkpWRAWD FAZIONot AvailableStart: 04-23-2025 End: 02-82-2569Kzqat [place] Cruz MD Work Phone: [phone]-Jqrsk [facility] Start: 04-21-2025 End: 17-95-7506Agegpkpbm Result EncounterCorey Davie DO Work Phone: noms External Department UnsolicitedStart: 04-21-2025 End: 14-50-6546Zhttvzmzu Result EncounterCorey Davie DO Work Phone: noms External Department UnsolicitedStart: 04-19-2025 End: 20-30-2228YniahlBettina Moise RNMaternal- [facility] at [facility] HospitalComment on above:Hypertension affecting in second trimester (Primary Dx)Start: 04-17-2025 End: 57-01-4770Tkrgvikmn Result EncounterCorey Davie DO Work Phone: noms External Department UnsolicitedStart: 04-17-2025 End: 40-15-9430Tzwkhuyjo Result EncounterCorey Davie DO Work Phone: no External Department UnsolicitedStart: 04-11-2025 End: 73-17-6748Qyjtoq flowsheetCorey Davie DO Work Phone: [facility] [place] OBGYNStart: 04-11-2025 End: 89-00-9881Pdwtof flowsheetCorey Davie DO Work Phone: NO [facility] OBGYNStart: 04-11-2025 End: 39-48-8864Jtboss outpatient visit 15 minutesCorey Davie DO Work Phone: NOM[facility] [place] OBGYNComment on above:15 weeks gestation of ([facility]); Second trimester ([facility]); Acute nonintractable headache, unspecified headache type; BP check; Gestational hypertension, antepartum ([facility]); induced hypertension, antepartum ([facility])Start: 04-11-2025 End: 71-86-3523Tofhtxi encounter statusCorey Davie DO Work Phone: NO HealthcareStart: 04-11-2025 End: 56-14-1492gwcbuwchhrAYTQC FAZIONot AvailableStart: 03-28-2025 End: 63-01-4370Bicdmh flowsheetCorey Davie DO Work Phone: NO [place] [facility]BGYNStart: 03-28-2025 End: 00-85-2942Ghiguf flowsheetCorey Davie DO Work Phone: no [place] OBGYNStart: 03-28-2025 End: 53-39-6048Gfuxoz outpatient visit 15 minutesCorey Davie DO Work Phone: [facility] [place] OBGYNComment on above:13 weeks gestation of ([facility]); Second trimester ([facility]); Acute nonintractable headache, unspecified headache typeStart: 03-28-2025 End: 78-28-7989acinzblytbLMHYV FAZIONot AvailableStart: 03-20-2025 End: 08-67-7797Kpipulpjj Result EncounterCorey Davie DO Work Phone: noms External Department UnsolicitedStart: 03-20-2025 End: 47-85-9769Fyntuftkb Result EncounterCorey Davie DO Work Phone: noms External Department UnsolicitedStart: 03-01-2025 End: 06-59-6804Jsgsiz outpatient visit 5 minutesFazio Nurse Noms Bcp ObNOMS BCP OBStart: 03-01-2025 End: 03-96-3207dwyfyagkqbMERPL FAZIONot AvailableStart: 01-16-2025 End: 31-64-8769Qvrduthao Result EncounterCorey Davie DO Work Phone: noms External Department UnsolicitedStart: 01-16-2025 End: 23-05-2195Rdebazizk Result EncounterCorey Davie DO Work Phone: noms External Department UnsolicitedStart: 01-03-2025 End: 78-31-1019Ugklyej encounter procedureRobbie Lopez MD Work Phone: Steve JaneComment on above:Encounter for preprocedural laboratory examination (Primary Dx); Abnormal uterine bleedingStart: 01-03-2025 End: 61-33-0884Onjqxmu encounter statusRobbie Lopez MD Work Phone: [facility] Work Phone: Start: 01-03-2025 End: 47-65-9119pvoaiggtygEZXCDB S [facility]: 01-03-2025 End: 18-29-2912Osolvcfvy for preprocedural laboratory examinationROBBIE Tapia [facility]: 12-18-2024 End: 69-03-0007Ecdrrvyq Result EncounterCorey Davie DO Work Phone: [facility] External Department UnsolicitedStart: 12-18-2024 End: 45-71-8133Avkkcdja Result EncounterCorey Davie DO Work Phone: noMS External Department UnsolicitedStart: 12-18-2024 End: 09-98-3680Yaqygly encounter procedureCorey Davie DO Work Phone: [facility] BCP OBComment on above:Skin moleStart: 12-18-2024 End: 01-61-5926ccahbgophxIgphr FazioFiFisher[facility] Work Phone: Start: 12-18-2024 End: 39-69-2948Fniutesz ReferredCorey Davie DO Work Phone: [facility] HospStart: 12-17-2024 End: 20-81-4658Ikmlbzoin Result EncounterCorey Davie DO Work Phone: [facility] External Department UnsolicitedStart: 12-17-2024 End: 72-50-0358Vnbbhenke Result EncounterCorey Davie DO Work Phone: [facility] External Department UnsolicitedStart: 12-10-2024 End: 49-70-8178Oopfimw encounter procedureCorey Davie DO Work Phone: [facility] HealthcareStart: 12-10-2024 End: 24-94-3865Kxtylksw preventive med est patient 18-39 yrsCorey Davie DO Work Phone: [facility] BCP OBComment on above:Well woman exam with routine gynecological examStart: 12-10-2024 End: 98-71-3265lubtitzzerKYQOY FAZIONot AvailableStart: 12-10-2024 End: 47-54-0632Rguuph flowsheetCorey Davie DO Work Phone: [facility] BCP OBStart: 12-10-2024 End: 39-41-2977Yekncg flowsheetCorey Davie DO Work Phone: N[facility]S BCP OBStart: 12-10-2024 End: 53-18-7257Jmipcgecm Result EncounterCorey Davie DO Work Phone: noms External Department UnsolicitedStart: 11-16-2024 End: 26-48-1889Qcfvseluv Result EncounterCorey Davie DO Work Phone: noms External Department UnsolicitedStart: 11-16-2024 End: 89-92-4472Rcqqioauc Result EncounterCorey Davie DO Work Phone: NOMS External Department UnsolicitedStart: 11-12-2024 End: 70-42-2788Kyyglg outpatient visit 15 minutesCorey Davie DO Work Phone: noMS [facility] OBComment on above:Encounter for fertility planning; Acute cystitis without hematuria; PCOS (polycystic ovarian syndrome); Fallopian tube disorderStart: 11-12-2024 End: 31-17-9126Xfnmsi flowsheetCorey Davie DO Work Phone: N[facility]S BCP OBStart: 11-12-2024 End: 93-93-4481Ubettk flowsheetCorey Davie DO Work Phone: noms [facility] OBStart: 11-12-2024 End: 54-64-8673xbdooqmaeiHAKWN FAZIONot AvailableStart: 11-03-2024 End: 01-91-9784Weopawvly department patient visitCOMMUNGALION HOS[facility]ITAL [facility] HospitalStart: 10-18-2024 End: 48-57-2991Swhlotuur Result EncounterCorey Davie DO Work Phone: noms External Department UnsolicitedStart: 10-18-2024 End: 80-24-7346Eylfybjqf Result EncounterCorey Davie DO Work Phone: noms External Department UnsolicitedStart: 09-17-2024 End: 06-85-4784Fvbynnutc Result EncounterCorey Davie DO Work Phone: noms External Department UnsolicitedStart: 09-17-2024 End: 29-55-0003Eaoxbtmiy Result EncounterCorey Davie DO Work Phone: noms External Department UnsolicitedStart: 08-16-2024 End: 19-27-7520Vosegkflp Result EncounterCorey Davie DO Work Phone: noms External Department UnsolicitedStart: 08-16-2024 End: 11-96-7898Nakpcihrp Result EncounterCorey Davie DO Work Phone: noms External Department UnsolicitedStart: 07-23-2024 End: 96-44-8912Azylem flowsheetCorey Davie DO Work Phone: noms BCP OBStart: 07-23-2024 End: 62-68-3849Zolqce flowsheetCorey Davie DO Work Phone: NORO BCP OBStart: 07-23-2024 End: 83-88-6193hevhdbchnpYOPRK FAZIONot AvailableStart: 07-23-2024 End: 06-38-8947Gryqua outpatient visit 15 minutesCorey Davie DO Work Phone: noms [facility] OBComment on above:PCOS (polycystic ovarian syndrome); Encounter for fertility planningStart: 07-18-2024 End: 61-75-5729Ynaidghez Result EncounterCorey Davie DO Work Phone: noms External Department UnsolicitedStart: 07-18-2024 End: 60-58-8542Udnkuhuvm Result EncounterCorey Davie DO Work Phone: NORZ External Department UnsolicitedStart: 06-11-2024 End: 10-57-5825Srwyln follow up visit related to original pxCorey Davie DO Work Phone: NOBV [facility] OBComment on above:Postoperative visit; S/P laparoscopic procedureStart: 06-11-2024 End: 94-50-8039Lycaql flowsheetCorey Davie DO Work Phone: noms BCP OBStart: 06-11-2024 End: 00-95-0833Gmyosk flowsheetCorey Davie DO Work Phone: NOCE BCP OBStart: 06-01-2024 End: 06-59-3155Csgenconi Result EncounterCorey Davie DO Work Phone: NOMK External Department UnsolicitedStart: 06-01-2024 End: 89-96-1143Fudrdvhbj Result EncounterCorey Davie DO Work Phone: NOMS External Department UnsolicitedStart: 05-03-2024 End: 29-23-5613Qyuffv outpatient visit 15 minutesCorey Davie DO Work Phone: NOYQ [facility] OBComment on above:Pre-op examination; Pelvic pain in female; Fallopian tube disorderStart: 05-03-2024 End: 30-96-1324Yqwaaogyfjhas examination doneCorey Davie DO Work Phone: NOMS HealthcareStart: 04-25-2024 End: 16-23-3239Teidtaond Result EncounterCorey Davie DO Work Phone: noms External Department UnsolicitedStart: 04-25-2024 End: 19-89-0023Xlnjpfdlb Result EncounterCorey Davie DO Work Phone: NOTE External Department UnsolicitedStart: 04-24-2024 End: 81-32-4053Jzlgwilbe Result EncounterCorey Davie DO Work Phone: noms External Department UnsolicitedStart: 04-24-2024 End: 08-54-7518Ncajvmpol Result EncounterCorey Davie DO Work Phone: NOUS External Department UnsolicitedStart: 04-10-2024 End: 73-60-7618Abpeou flowsheetCorey Davie DO Work Phone: [facility] BCP OBStart: 04-10-2024 End: 28-00-7044Dufxgz flowsheetCorey Davie DO Work Phone: [facility] BCP OBStart: 04-10-2024 End: 23-07-8369Xrfgcc outpatient visit 15 minutesCorey Davie DO Work Phone: [facility] OBComment on above:Encounter for fertility planning; PCOS (polycystic ovarian syndrome); Pelvic pain in female; Abnormal uterine bleeding (AUB)Start: 03-13-2024 End: 42-19-5687Qspioy outpatient visit 15 minutesJames Fraire MD Work Phone: [facility] CardiologyComment on above:Heart palpitations (Primary Dx)Start: 03-12-2024 End: 75-64-8575Npgfofpaa encounterJennshayne Powell [facility]ITALProMedica Physicians CardiologyStart: 02-22-2024 End: 00-07-7193Hmflv abstractingScanning Provider ExternalProMedica Physicians CardiologyStart: 11-24-2023 End: 64-32-7303kwpwxzjzywKrvxjfpoe [facility] Work Phone: Start: 11-24-2023 End: 58-94-8207Ecjizsd encounter procedureUnc Health [facility] Work Phone: Start: 10-11-2022 End: 30-27-5327rauhdykjoqDyuvjn Dymond Other [facility] [employer] Other Start: 73-66-7908Jrihio outpatient new 20 minutes Pinky SinghFPG Urgent Care [facility] Procedures DateProcedureProcedure DetailPerforming ClinicianStart: 08-18-9402Egrot dip stick/tablet rgnt non-auto w/o micrscpCorey Davie DO Work Phone: Start: 56-69-6340Hwpbz dip stick/tablet rgnt non-auto w/o micrscpKristina Uyen SENIOR DIRECTOR Work Phone: Start: 13-71-6934Rnfms dip stick/tablet rgnt non-auto w/o micrscpKristina Uyen SENIOR DIRECTOR Work Phone: Start: 44-25-4381ZLA, SERUM, OPEN SPINA BIFIDACorey Davie DO Work Phone: Start: 97-25-7009Rajfs dip stick/tablet rgnt non-auto w/o micrscpCorey Davie DO Work Phone: Start: 31-80-7384UJN TOTAL PROTEIN 24 HOUR URINECorey Davie DO Work Phone: Start: 85-32-9908Wmnjf count complete automatedNot In System Ref ProvStart: 80-43-3012MYC CBC WITH AUTO DIFFCorey Davie DO Work Phone: Start: 43-84-0191Knkci dip stick/tablet rgnt non-auto w/o micrscpCorey Davie DO Work Phone: Start: 54-76-2702Askbg dip stick/tablet rgnt non-auto w/o micrscpCorey Davie DO Work Phone: Start: 02-83-9291Aalhtedj Cathi Cruz MD Work Phone: Start: 79-02-8697Flwe scrn 1+ class nonchromoNot In System Ref ProvStart: 46-95-1985Hyarufsmhp glycosylated f2uRhetjdpr Provider ExternalStart: 94-90-8079Avezvlecv c antibodyNot In System Ref ProvStart: 40-39-7051OQQ 1&2 AB/AG SCREEN (P24 AG)Not In System Ref ProvStart: 03-20-2025 Iaad ia hepatitis b surface antigenNot In System Ref ProvStart: 03-20-2025 SYPHILIS TOTAL(UNKNOWN SYPHILIS STATUS)Not In System Ref ProvStart: 03-20-2025 TYPE AND SCREENNot In System Ref ProvStart: 29-18-6658AZI CBC WITH AUTO DIFF Caesar Davie DO Work Phone: Start: 03-01-2025 End: 59-56-9740Cxjga dip stick/tablet rgnt non-auto w/o micrscpCorey Davie DO Work Phone: Start: 28-97-8585KQS PROGESTERONECorey Davie DO Work Phone: Start: 12-50-0913ASHSPZLAS REQUEST FOR LAB CORPCorey Davie DO Work Phone: Start: 26-93-3964CRO PROGESTERONECorey Davie DO Work Phone: Start: 14-12-8555ZIU,APTIMA HPV,AGE GDLNCorey Five Cool DO Work Phone: Start: 74-74-1457Usaytgjfeva observation [Identifier] in Cervix by Cyto stainCorey Davie DO Work Phone: Start: 25-65-3921EQK PROGESTERONECorey Davie DO Work Phone: Start: 57-15-9861ENG PROGESTERONECorey Five Cool DO Work Phone: Start: 08-09-7796JHL PROGESTERONECorey Davie DO Work Phone: Start: 43-37-9294QBU PROGESTERONECorey Davie DO Work Phone: Start: 04-68-6100WOF PROGESTERONECorey Davie DO Work Phone: Start: 03-80-3453KEF CBC WITH AUTO DIFFCorey Five Cool DO Work Phone: Start: 70-93-4622BT PELVIS W/ TRANSVAGINALCorey Davie DO Work Phone: Start: 10-32-2981BIU CBC WITH AUTO DIFFCorey Five Cool DO Work Phone: Start: 68-38-5879Icc routine ecg w/least 12 lds w/i&r James Fraire MD Work Phone: Start: 60-40-7662Aoorn Strep (POC)Start: 11-23-2022 Microscopic observation [Identifier] in Cervix by Cyto stainScanning External Start: 82-66-9311Spegqodwdtl observation [Identifier] in Cervix by Cyto stain Caesar Five Cool DO Work Phone: Start: 60-26-9732Qbti cerv/vag auto thin layer prep mnl screenAmy Zackary UNIX MANAGER Work Phone: Plan of Treatment DateCare ActivityDetailAuthorStart: 32-85-2521Hfmofb Vaccines (1 of 2)Zoster Vaccines (1 of 2)[facility] CenterStart: 45-08-2885Lniavjwsh for malignant neoplasm of cervixNOMS HealthcareStart: 87-37-5693Vmsluqnbn for malignant neoplasm of cervixNOMS HealthcareStart: 78-48-3957Sjsel BMI Screening Adult BMI ScreeningFulton County Health Center SystemStart: 68-98-5907Xhuxwtl Screening Tobacco ScreeningECU Health Medical Centertart: 12-16-2025 End: 59-81-2254Yuhecvg encounter procedureNOMS BCP OBStart: 14-92-4800Ctbeibryl for malignant neoplasm of cervixPap SmearFulton County Health Center SystemStart: 75-18-9209Pxccjdfbt for malignant neoplasm of cervixPap SmearNOOH Healthcare Start: 48-35-4826Bonakzh ScreeningTobacco ScreeningFulton County Health Center SystemStart: 07-09-2025 End: 34-59-0700Czemwig encounter szgigejbh24/18/2025 1:20 PM EST Routine LIANA HEAD [address] [place], [phone] Bethany Simon PA [address] [place] [address] LIANA LAWSONGYNStart: 06-24-2025 End: 24-00-5287YQJ panel - Blood by Automated countCBC Lab Routine Diabetes mellitus screening Expected: 06/24/2025 (Approximate), Expires: 06/24/2026[facility] Work Phone: comment on above:Expected: 06/24/2025 (Approximate), Expires: 06/24/2026Start: 06-24-2025 End: 61-91-2455Miivvvwemia of glucose 1 hour after glucose challenge for glucose tolerance testGlucose tolerance, 1 hour Lab Routine Diabetes mellitus screening Expected: 06/24/2025 (Approximate), Expires: 06/24/2026NOOH HealthcareComment on above:Expected: 06/24/2025 (Approximate), Expires: 06/24/2026Start: 06-24-2025 End: 76-23-1223SJ biophysical profile w non stress testUS biophysical profile w non stress test Imaging Routine 25 weeks gestation of ([facility]) H/O pre-eclampsia in prior , currently ([facility]) Chronic hypertension affecting ([facility]) Expected: 06/24/2025 (Approximate), Expires: 12/22/2025NOMS HealthcareComment on above: Expected: 06/24/2025 (Approximate), Expires: 12/22/2025Start: 06-24-2025 End: 93-80-0477KZ for pregnancyUS OB follow up transabdominal approach Imaging Routine H/O pre-eclampsia in prior , currently ([facility]) Chronic hypertension affecting ([facility]) Expected: 06/24/2025, Expi res: 10/22/2025NOOH HealthcareComment on above:Expected: 06/24/2025, Expires: 10/22/2025Start: 06-24-2025 End: 30-38-9852Sspaglh encounter procedureNOMS [place] OBGYNComment on above: ArrivedStart: 06-18-2025 End: 82-63-1683Gndmjzdslbjk consultation with gdhooli4506/18/2025 2:00 PM EDT Telemedicine Maternal- Medicine at [facility] [address] [place] [phone] Yordy Cruz MD [address] [place] [address] [facility]: 06-18-2025 End: 12-34-5571Eadtlpc encounter /28/2025 8:00 AM EDT Appointment [facility] - Ultrasound [address] [place] [address] [phone] [facility] - UltrasoundStart: 06-05-2025 End: 73-98-2994Qhtidhk encounter procedureNOMS [place] OBGYNComment on above: ArrivedStart: 05-30-2025 End: 23-12-7270Kbphhla encounter procedureNOMS [place] OBGYNComment on above: ArrivedStart: 05-25-2025 End: 82-46-0832Uwgfp fetoprotein, maternalAlpha fetoprotein, maternal Lab Routine Need for maternal serum alpha-protein (MSAFP) screening ([facility]) Expected: 05/25/2025 (Approximate), Expires: 05/25/2025NOMS HealthcareComment on above:Expected: 05/25/2025 (Approximate), Expires: 05/25/2025Start: 05-23-2025 End: 07-87-0586Hklstoc encounter qysdeminx79/02/2025 2:30 PM EDT Routine LIANA HEAD [address] [phone] Rody Qiu, SENIOR DIRECTOR [address] [place] [address] LIANA LAWSONGYNStart: 05-20-2025 End: 36-79-3227QN MFM with or without consultUS MFM with or without consult Imaging Routine Hypertension affecting in second trimesterExpected: 05/20/2025 (Approximate), Expires: 04/19/2026[facility] Work Phone: comment on above:Expected: 05/20/2025 (Approximate), Expires: 04/19/2026Start: 05-17-2025 End: 45-55-6911CZ MFM with or without consultUS MFM with or without consult Imaging Routine 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 Severe obesity due to excess calories affecting , antepartum ([facility]) Hypertension affecting in second trimester Expected: 05/17/2025, Expires: 05/17/2026[facility] Work Phone: Comment on above:Expected: 05/17/2025, Expires: 05/17/2026Start: 05-17-2025 End: 14-16-4528Qguhbym encounter procedureProKettering Health [facility] US ImagingStart: 04-25-2025 End: 09-37-8439Lwdwmsl encounter procedureNOSouthern Ocean Medical Center OBGYNComment on above: ArrivedStart: 24-75-8701MPAGB-19 Vaccine ( season)COVID-19 Vaccine ()NOMS HealthcareStart: 72-52-8786Hsmhaohgb vaccinationNOMS HealthcareStart: 04-11-2025 End: 92-42-3888Azxvvxu aminotransferase [Enzymatic activity/volume] in Serum or PlasmaALT Lab Routine Gestational hypertension, antepartum ([facility]) induced hypertension, antepartum ([facility]) Expected: 04/11/2025 (Approximate), Expires: 04/11/2026NOO[facility] HealthcareComment on above:Expected: 04/11/2025 (Approximate), Expires: 04/11/2026Start: 04-11-2025 End: 53-20-6779Bjtlqwtel aminotransferase [Enzymatic activity/volume] in Serum or PlasmaAST Lab Routine Gestational hypertension, antepartum ([facility]) induced hypertension, antepartum ([facility]) Expected: 04/11/2025 (Approximate), Expires: 04/11/2026NOO[facility] HealthcareComment on above:Expected: 04/11/2025 (Approximate), Expires: 04/11/2026Start: 04-11-2025 End: 06-10-0075HZX W Auto Differential panel - BloodCBC and differential Lab Routine Gestational hypertension, antepartum ([facility]) induced hy pertension, antepartum ([facility]) Expected: 04/11/2025 (Approximate), Expires: 04/11/2026[facility] HealthcareComment on above:Expected: 04/11/2025 (Approximate), Expires: 04/11/2026Start: 04-11-2025 End: 68-06-0279Zciyrrztcg [Mass/volume] in Serum or PlasmaCreatinine Lab Routine Gestational hypertension, antepartum ([facility]-HCC) induced hypertension, antepartum ([facility]CC) Expected: 04/11/2025 (Approximate), Expires: 04/11/2026[facility] [employer] Work Phone: comment on above:Expected: 04/11/2025 (Approximate), Expires: 04/11/2026Start: 04-11-2025 End: 62-51-9514Bfuopeo dehydrogenase [Enzymatic activity/volume] in Serum or Plasma by Lactate to pyruvate reactionLactate dehydrogenase Lab Routine Gestational hypertension, antepartum ([facility]-H[facility]) induced hypertension, antepartum ([facility]) Expected: 04/11/2025, Expires: 04/11/2026[facility] Comment on above:Expected: 04/11/2025, Expires: 04/11/2026Start: 04-11-2025 End: 38-93-0035Fmhnlqa, urine, 24 hourProtein, urine, 24 hour Lab Routine Gestational hypertension, antepartum ([facility]-HCC) induced hypertension, antepartum ([facility]-HCC) Expected: 04/11/2025 (Approximate), Expires: 04/11/2026[facility] HealthcareComment on above:Expected: 04/11/2025 (Approximate), Expires: 04/11/2026Start: 04-11-2025 End: 46-86-8186We and pttPt and ptt Lab Routine Gestational hypertension, antepartum ([facility]-HCC) induced hypertension, antepartum ([facility]) Expected: 04/11/2025, Expires: 04/11/2026[facility] HealthcareComment on above: Expected: 04/11/2025, Expires: 04/11/2026Start: 04-11-2025 End: 95-57-2280Pulnp [Mass/volume] in Serum or PlasmaUric acid Lab Routine Gestational hypertension, antepartum ([facility]-HCC) induced hypertension, antepartum ([facility]) Expected: 04/11/2025 (Approximate), Expires: 04/11/2026[facility] HealthcareComment on above:Expected: 04/11/2025 (Approximate), Expires: 04/11/2026Start: 04-11-2025 End: 65-16-6696Mkwg nitrogen [Mass/volume] in Serum or PlasmaBUN Lab Routine Gestational hypertension, antepartum ([facility]-HCC) induced hypertension, antepartum ([facility]) Expected: 04/11/2025, Expires: 04/11/2026[facility] Healthcare Comment on above:Expected: 04/11/2025, Expires: 04/11/2026Start: 04-11-2025 End: 42-13-1819Hrfqjkb encounter procedureNOMS Aman OBGYNComment on above: ArrivedStart: 03-28-2025 End: 29-43-8063Vslkdaj encounter procedureNOMS BCP OBComment on above:Arrived Start: 89-40-2401Yxveu BMI ScreeningAdult BMI ScreeningFulton County Health Center System Start: 85-28-1111Afckvwa ScreeningTobacco ScreeningECU Health Medical Centertart: 03-01-2025 End: 13-70-7532DNV/RhABO/Rh Lab Routine Missed menses , unspecified gestational age ([facility]) Expected: 03/01/2025 (Approximate), Expires: 03/01/2026NOO[facility] HealthcareComment on above:Expected: 03/01/2025 (Approximate), Expires: 03/01/2026Start: 03-01-2025 End: 13-51-7339Sqftx type and Indirect antibody screen panel - BloodType and screen Lab Routine Missed menses , unspecified gestational age ([facility]) Expected: 03/01/2025 (Approximate), Expires: 03/01/2026[facility] Healthcare Work Phone: comment on above:Expected: 03/01/2025 (Approximate), Expires: 03/01/2026Start: 03-01-2025 End: 57-04-8424Lsfeu of abuse panel - Urine by Screen methodRapid drug screen, urine Lab Routine , unspecified gestational age ([facility]) Encounter for supervision of normal first in first trimester ([facility]) Expected: 03/01/2025 (Approximate), Expires: 03/01/2026[facility] HealthcareComment on above: Expected: 03/01/2025 (Approximate), Expires: 03/01/2026Start: 02-03-2025 End: 03-37-4483Kuqfckmmwxnoqknhyr ( test) [Presence] in UrinePOCT , urine manually resulted Point of Care Testing Routine Encounter for preprocedural laboratory examination Expected: 02/03/2025 (Approximate), Expires: 04/05/2025[facility] Work Phone: Comment on above:Expected: 02/03/2025 (Approximate), Expires: 04/05/2025Start: 02-03-2025 End: 37-09-5229NxxflqhfoktqdmrMzijrxpxxwqpifz Procedures Routine Abnormal uterine bleeding Expected: 02/03/2025 (Approximate), Expires: 01/03/2026[facility] Service Area Work Phone: Comment on above:Expected: 02/03/2025 (Approximate), Expires: 01/03/2026Start: 02-03-2025 End: 69-87-9134UP.doppler Uterus and Fallopian tubes W saline IUUS sonohysterogram Imaging Routine Abnormal uterine bleeding Expected: 02/03/2025 (Approximate), Expires: 01/03/2026[facility] Work Phone: Comment on above:Expected: 02/03/2025 (Approximate), Expires: 01/03/2026Start: 12-18-2024 End: 76-01-3782Mdprhpu encounter ybbnizxjp08/29/2025 1:30 PM EDT Procedure Visit [facility] [address] [phone] Caesar Broderick, DO [address] [place] [address] N[facility] BCP OBStart: 75-34-3581OsnpzklygTriHealth Bethesda Butler Hospitaltart: 12-10-2024 End: 58-68-6943Hpjxaop encounter procedureNOMS BCP OBComment on above:Arrived Start: 11-12-2024 End: 59-89-3969Yjxvnce encounter procedureNOMS BCP OBComment on above:Arrived Start: 07-23-2024 End: 24-45-5731Onytqry encounter hyyprtfca31/02/2024 1:00 PM EST Office Visit [facility] [address] [place] [address] Caesar Broderick, DO [address] [place] [address] [place] [address] [facility] BCP OBStart: 06-11-2024 End: 14-06-6351Abzugxs encounter pbqklywzm34/21/2024 2:20 PM EDT Office Visit [facility] [address] [place] [address] Caesar Broderick, DO [address] [place] [address] [place] [address] ArrivedNOMS BCP OBComment on above:ArrivedStart: 06-01-2024 End: 80-63-9216Lizwihr encounter billjzcoh15/11/2024 8:30 AM EDT Procedure Visit [facility] EXT DEP Caesar Broderick, DO [address] [place] [address] [place] [address] NOMS EXT DEPStart: 05-03-2024 End: 77-23-0029Fitlyzf encounter jydorhwic15/12/2024 11:40 AM EDT Consult [facility] [address] [place] [address] Caesar Broderick, DO [address] [place] [address] [place] [address] [facility] BCP OBStart: 72-60-0780PZWKZ-19 Vaccine ( season)COVID-19 Vaccine ( season)[facility] Start: 93-31-7644Capcquogt vaccinationNOOH HealthcareStart: 04-10-2024 End: 51-92-0648Gdvrsbwucckxm hormone (AMH)Antimullerian hormone (AMH) Lab Routine PCOS (polycystic ovarian syndrome) Expected: 04/10/2024 (Approximate), Expires: 04/10/2025N[facility] HealthcareComment on above:Expected: 04/10/2024 (Approximate), Expires: 04/10/2025Start: 04-10-2024 End: 33-11-0210OISNVKTU Lab Routine PCOS (polycystic ovarian syndrome) Expected: 04/10/2024 (Approximate), Expires: 04/10/2025N[facility] HealthcareComment on above: Expected: 04/10/2024 (Approximate), Expires: 04/10/2025Start: 04-10-2024 End: 49-80-2626BS for pregnancyUS PELVIS-TRANSVAG IF INDICATED Imaging Routine PCOS (polycystic ovarian syndrome) Pelvic pain in female Expected: 04/10/2024 (Approximate), Expires: 04/10/2025NO HealthcareComment on above:Expected: 04/10/2024 (Approximate), Expires: 04/10/2025Start: 04-10-2024 End: 46-69-4762Wvvrtcl encounter upmaqxqgs17/20/2024 9:10 AM EDT Office Visit [facility] [address] [address] Caesar Broderick, [address] [place] [address] [facility] OBComment on above:ArrivedStart: 03-13-2024 End: 69-89-2224Bukknzm encounter sisfvmwki04/23/2024 11:00 AM EDT Office Visit [facility] [address] [place] [address] James Fraire MD [address] [place] [facility] [place], [id number] [facility] CardiologyStart: 78-91-6567Veiae BMI ScreeningAdult BMI ScreeningProRegency Hospital Cleveland Westca Health SystemStart: 78-40-1666Cwcdokc ScreeningTobacco ScreeningProRegency Hospital [facility] Westca [facility] SystemStart: 61-16-9226WIT Vaccines (1 - 3-dose SCDM series)HPV Vaccines (1 - 3-dose SCDM series)[facility]Start: 90-40-5137BZlH/Tdap/Td Vaccines (1 - Tdap)DTaP/Tdap/Td Vaccines (1 - Tdap)[facility]: 31-11-6870Korydltxp for malignant neoplasm of cervixHPV/CotestUnWilson Street Hospital: 52-24-7083FEbC,Tdap and Td Vaccines (1 - Tdap) DTaP,Tdap and Td Vaccines (1 - Tdap)[facility] SystemStart: 2011 Hepatitis B Vaccines (1 of 3 - 19+ 3-dose series)Hepatitis B Vaccines (1 of 3 - 19+ 3-dose series)[facility]: 73-05-7285Qljlk BMI Follow Up PlanAdult BMI Follow Up PlanECU Health Medical Centertart: 2010 Hepatitis C screeningHepatitis C ScreeningUniversity Hospitals [facility] Start: 03-26-4097Lgonlwi of varicella vaccinationVaricella Vaccines (1 of 2 - 13+ 2-dose series)[facility] HealthcareStart: 17-14-1617Sdhbmclkp vaccinationVaricella Vaccines (1 of 2 - 13+ 2-dose series)[facility]: 29-16-3710Dykaguetmf ScreeningDepression ScreeningProSouthwest General Health Centertart: 30-42-4061OUpV/Tdap/Td Vaccines (1 - Tdap)DTaP/Tdap/Td Vaccines (1 - Tdap)[facility] CenterStart: 61-34-9102HSJ Vaccines (1 of 1 - Standard series)MMR Vaccines (1 of 1 - Standard series)[facility]: 77-70-0227TYB screeningHIV ScreeningUnWilson Street Hospital: 40-45-7316Eqpud panelLipid PanelJoint Township District Memorial Hospital: 42-00-6954Wyzxjo Adult PhysicalYearly Adult PhysicalUnKettering Health [place] identified in Urine by CultureUrine culture Microbiology Routine Missed menses Ordered: 03/01/2025[facility] HealthcareComment on above:Ordered: 5CBC W Auto Differential panel - BloodCBC and differential Lab Routine PCOS (polycystic ovarian syndrome) Ordered: 04/10/2024[facility] HealthcareComment on above:Ordered: 04/10/2024BC W Auto Differential panel - BloodCBC and differential Lab Routine Missed menses , unspecified gestational age ([facility]) Ordered: 03/01/2025[facility] HealthcareComment on above:Ordered: 03/01/2025HLAMYDIA TRACHOMATIS (GENITO/STI)CHLAMYDIA TRACHOMATIS (GENITO/STI) Lab Routine Screen for STD (sexually transmitted disease) Ordered: 04/25/2025[facility] HealthcareComment on above:Ordered: 04/25/2025 End: 32-54-5932Jovvzmvnwq, urine, 24 hourCreatinine, urine, 24 hour Lab Routine Chronic hypertension affecting 20 weeks gestation of 1 Occurrences starting 05/17/2025 until 05/17/2026[facility] SystemComment on above:1 Occurrences starting 05/17/2025 until 05/17/2026ytology Cervical or vaginal smear or scraping studyPap Smear Pathology and Cytology Routine Well woman exam with routine gynecological exam Ordered: 12/10/2024[facility] Healthcare Work Phone: comment on above:Ordered: 12/10/2024DHEA-sulfateDHEA- sulfate Lab Routine PCOS (polycystic ovarian syndrome) Ordered: 04/10/2024[facility] HealthcareComment on above:Ordered: 04/10/2024Follicle stimulating hormone Follicle stimulating hormone Lab Routine PCOS (polycystic ovarian syndrome) Ordered: 04/10/2024[facility] HealthcareComment on above:Ordered: 04/10/2024hCG, quantitative, pregnancyhCG, quantitative, Lab Routine PCOS (polycystic ovarian syndrome) Ordered: 04/10/2024[facility] Healthcare Work Phone: comment on above:Ordered: 04/10/2024Hemoglobin A1c/Hemoglobin.total in BloodHemoglobin A1c Lab Routine Pelvic pain in female Abnormal uterine bleeding (AUB) Ordered: 04/10/2024[facility] HealthcareComment on above:Ordered: 04/10/2024Hemoglobin A1c/Hemoglobin.total in BloodHemoglobin A1c Lab Routine Missed menses , unspecified gestational age ([facility]) Ordered: 03/01/2025[facility] HealthcareComment on above:Ordered: 03/01/2025Hepatitis B virus surface Ag [Presence] in Serum or Plasma by ImmunoassayHepatitis B surface antigen Lab Routine Missed menses , unspecified gestational age ([facility]) Ordered: 03/01/2025[facility] HealthcareComment on above:Ordered: 03/01/2025Hepatitis C virus Ab [Presence] in Serum or Plasma by Immunoassay Hepatitis C antibody Lab Routine Missed menses , unspecified gestational age ([facility]) Ordered: 03/01/2025[facility] HealthcareComment on above: Ordered: 03/01/2025HIV-1/HIV-2 antigen/antibody combination immunoassayHIV-1 and HIV-2 antibodies Lab Routine Missed menses , unspecified gestational age ([facility]) Ordered: 03/01/2025[facility] HealthcareComment on above:Ordered: 03/01/2025Human papilloma virus DNA [Presence] in Unspecified specimen by Probe with amplificationHPV DNA probe, amplified Microbiology Routine Well woman exam with routine gynecological exam Ordered: 12/10/2024[facility] HealthcareComment on above:Ordered: 12/10/2024Luteinizing hormoneLuteinizing hormone Lab Routine PCOS (polycystic ovarian syndrome) Ordered: 04/10/2024[facility] HealthcareComment on above:Ordered: 04/10/2024 End: 04-48-8263Ijhgcbshqxt peptide B [Mass/volume] in BloodB-type natriuretic peptide Lab Routine Chronic hypertension affecting 20 weeks gestation of 1 Occurrences starting 05/17/2025 until 05/17/2026[facility] Work Phone: Comment on above:1 Occurrences starting 05/17/2025 until 05/17/2026Natriuretic peptide B [Mass/volume] in BloodB-type natriuretic peptide Lab Routine Chronic hypertension affecting 20 weeks gestation of 05/17/2025 9:54 AM [facility] CenterNeisseria gonorrhoeae DNA [Presence] in Unspecified specimen by [facility] with probe detectionNeisseria gonorrhea DNA probe, direct Lab Routine Screen for STD (sexually transmitted disease) Ordered: 04/25/2025[facility] HealthcareComment on above:Ordered: 04/25/2025 End: 50-72-9516Ydwyzyt, urine, 24 hourProtein, urine, 24 hour Lab Routine Chronic hypertension affecting 20 weeks gestation of 1 Occurrences starting 05/17/2025 until 05/17/2026[facility] SystemComment on above:1 Occurrences starting 05/17/2025 until 05/17/2026Reagin Ab [Presence] in Serum by RPRRPR Lab Routine Missed menses , unspecified gestational age ([facility]) Ordered: 03/01/2025[facility] Center[facility]:Ordered: 03/01/2025Rubella antibody, IgGRubella antibody, IgG Lab Routine Missed menses , unspecified gestational age ([facility]) Ordered: 03/01/2025[facility] HealthcareComment on above:Ordered: 03/01/2025SURESWAB(R) ADVANCED VAGINITIS PLUS, TMASURESWAB(R) ADVANCED VAGINITIS PLUS, TMA Pathology and Cytology Routine Screen for STD (sexually transmitted disease) Ordered: 04/25/2025[facility] Work Phone: comment on above:Ordered: 04/25/2025Thyrotropin [Units/volume] in Serum or PlasmaTSH Lab Routine PCOS (polycystic ovarian syndrome) Ordered: 04/10/2024[facility] CenterComment on above:Ordered: 04/10/2024 Thyroxine (T4) free [Mass/volume] in Serum or PlasmaT4, free Lab Routine PCOS (polycystic ovarian syndrome) Ordered: 04/10/2024[facility] CenterComment on above:Ordered: 04/10/2024 Payers DatePayer CategoryPayerPolcass county health [id number] [id number] 2..[id number] 2.0.1.263281.3.57[id number] 2.0.1.826287.3.579.2.686570-85-7541Fupldfq [id number] 2.0.1.317247.3.57[id number] 2.16840.1.899901.3.57[id number] 2.16840.1.971571.3.57[id number] 2.16840.1.998019.3.57[id number] 2.16840.1.991660.3.57[id number] 2..1.133820.3.57[id number] 2..1.375140.3.57[id number] 2.0.1.771634.3.57[id number] 2..1.096076.3.57[id number] 2..1.830253.3.57[id number] 2..1.210891.3.57[id number] 2.840.1.559816.3.57[id number] 2.0.1.404361.3.57[id number] 2.16840.1.017399.3.57[id number] 2.840.1.521601.3.57[id number] 2.16.840.1.076138.3.57[id number] 2.16.840.1.759084.3.57[id number] 2.16.840.1.3624[id number] 2.16.840.1.597757.3.579.2.531 Social History DateTypeDetailFacilityStart: 02-22-2024 End: 62-33-6256Cux Assigned At [facility] The Moment Other Start: 67-08-8869Mfe Assigned At [facility] CenterTobacco smoking status NHISTobacco smoking consumption unknownNOOH HealthcareStart: 74-03-1961Fjj assigned at birthNot on fileProBaypointe Hospital BluelightApp SystemStart: 10-09-2022 End: 75-68-1464Dnqettu smoking status NHISNever smoked tobaccoProBaypointe Hospital BluelightApp SystemStart: 10-09-2022 End: 01-95-1029Cjlpwmg use and exposureSmokeless tobacco non-userProBaypointe Hospital BluelightApp SystemStart: 02-22-2024 End: 52-11-1534Wtvwkjvwk beverage intakeEx-drinker (finding)[facility] SystemStart: 02-22-2024 End: 22-55-7046Ygaajva of Social functionProMediMary Rutan Hospital SystemStart: 94-63-2085Iwgyfg the past 12 months we worried whether our food would run out before we got money to buy more.Never TrueProRegency Hospital Cleveland WestKupu [place] SystemStart: 09-30-2022 End: 63-64-6503OiaWukcgu (finding)[facility] Hospitaltart: 56-34-5500Qrdbyictv beverage intakeLifetime non-drinker (finding)[facility] Work Phone: Start: 12-24-2024 End: 38-92-8785Nzsfowzq to SARS-CoV-2 (event)Not sureUnKettering Health [place]burgStart: 53-28-6519OxrynmahlECIU Healthcare Functional Status KuxfErklsgekgrMwcxdhZpabvuhc56-56-9045Meyyfuk Health Questionnaire 2 item (PHQ- 2) [Reported][facility] Medical CenterFhopcnoycu91-47-7124Doteosv Health Questionnaire 2 item (PHQ- 2) [Reported][facility] Work Phone: [phone] 600-529405080110-83-3075Hcvgpztc - suicide severity rating scale screener - recent [C-SSRS][facility] Work Phone: Clinical Notes 10-11-2022 to 06-24-2025 Note Date & NrhbRifzJvndrifa05-92-5250 History of Present illness Narrative* Karoline Casillas, [...] (polycystic ovarian syndrome) 07/30/2024 induced hypertension, antepartum ([facility]) 04/25/2025 Vitamin D deficiency 05/23/2025 H/O pre-eclampsia in prior , currently ([facility]) 05/23/2025 Resolved Ambulatory Problems Diagnosis Date [...] nursing note reviewed. Exam conducted with a sound printer present. Vitals: Estimated body mass index is 43.33 kg/m as calculated from the following: Height as of 06/11/24: 5' 8 . Weight as of this encounter: 285 lb. BP: 150/86 Patient's last menstrual period was 12/26/2024. Assessment/Plan ICD-10-CM 1. Second trimester ([facility]) Z34.92 POCT urinalysis dipstick manually resulted 2. 25 weeks gestation of ([facility]) Z3A.25 labetalol (Normodyne) 100 MG tablet 3. H/O pre-eclampsia in prior , currently ([facility]) O09.299 labetalol (Normodyne)100 MG tablet 4. Vitamin D deficiency E55.9 5. Chronic hypertension affecting ([facility]) O10.919 labetalol (Normodyne) 100 MG tablet [...] given for patient to get scheduled at [facility] FBC and [facility] Scheduling. Patient to return to clinic in 2 weeks for routine OB appointment. Patient has had ER visits since last appointment due to headaches and elevated BP. Patient to have no lifting and to rest while off work. Documented by Karoline Casillas LPN on behalf of: Caesar Broderick DO documented in this encounterCenterpoint Medical CenterUjorrciyys16-03-6618 History of Present illness Narrative* Yordy Cruz [...] TESTS AND ULTRASOUND REPORTS: Referral records and [facility] chart were reviewed Pertinent Ultrasound findings [...] ultrasound, attempt completion in 4 weeks through [facility] serial growth ultrasounds every 4 weeks [...] patient is in complete care of her application penetration tester. Patient does have ultrasound and office visit scheduled with us. Thank you for allowing me to participate in the care of Ellen Ramires. If there any questions please do not hesitate to contact us. Yordy Cruz MD Maternal- Medicine [facility] [address] [place] [address] This document was created with [employer] technology. Though I make every effort to review the dictation as it is transcribed, on occasion the spoken word can be misinterpreted by the technology leading to inappropriate words, phrases, or sentences. This note is addressed to the requesting provider as a consultation for clinical guidance. Specificmedical abbreviations are occasionally used and those are generally approved by the [place]?Board of?Obstetrics and?Gynecology?as well as?Rama tapia abbreviations. The above plan of care was based solely on the diagnoses for which a consultation was requested. ?More frequent testing may be indicated based on her other medical/obstetrical conditions. The management of other or medical conditions is beyond the scope of requested consultation and will c ontinue to be followed by the primary application penetration tester or primary care provider. Note to patient: [...] opinion of the practitioner. documented in this encounterMer[facility]10-[facility] History of Present illness Narrative* Rody [...] (polycystic ovarian syndrome) 07/30/2024 induced hypertension, antepartum ([facility]) 04/25/2025 Vitamin D deficiency 05/23/2025 H/O pre-eclampsia in prior , currently ([facility]) 05/23/2025 Resolved Ambulatory Problems Diagnosis Date [...] nursing note reviewed. Exam conducted with a sound printer present. Vitals: Estimated body mass index is 42.99 kg/m as calculated from the following: Height as of 06/11/24: 5' 8 . Weight as of this encounter: 282 lb 12 oz. BP: 130/76 Patient's last menstrual period was 12/26/2024. ASSESSMENT & PLAN ICD-10-CM 1. Second trimester ([facility]) Z34.92 POCT urinalysis dipstick manually resulted 2. 23 weeks gestation of ([facility]) Z3A.23 Return OB: Patient presents today [...] 06/01/2024 WISDOM TOOTH EXTRACTION documented in this encounterCenterpoint Medical CenterXnvcmmgdex78-30-3025 History of Present illness Narrative* Rody Qiu [...] (polycystic ovarian syndrome) 07/30/2024 induced hypertension, antepartum ([facility]) 04/25/2025 Vitamin D deficiency 05/23/2025 H/O pre-eclampsia in prior , currently ([facility]) 05/23/2025 Resolved Ambulatory Problems Diagnosis Date [...] nursing note reviewed. Exam conducted with a sound printer present. Vitals: Estimated body mass index is 43.03 kg/m as calculated from the following: Height as of 06/11/24: 5' 8 . Weight as of 05/23/25: 283 lb. BP: Patient's last menstrual period was 12/26/2024. ASSESSMENT & PLAN ICD-10-CM 1. Second trimester ([facility]) Z34.92 2. 22 weeks gestation of ([facility]) Z3A.22 POCT urinalysis dipstick manually resulted [...] of: Rody Qiu NP documented in this encounterCenterpoint Medical CenterTfhmshpwry47-83-0398 History of Present illness Narrative* Rody Qiu [...] (polycystic ovarian syndrome) 07/30/2024 induced hypertension, antepartum ([facility]) 04/25/2025 Vitamin D deficiency 05/23/2025 H/O pre-eclampsia in prior , currently ([facility]) 05/23/2025 Resolved Ambulatory Problems Diagnosis Date [...] nursing note reviewed. Exam conducted with a sound printer present. Vitals: Estimated body mass index is 43.03 kg/m as calculated from the following: Height as of 06/11/24: 5' 8 . Weight as of this encounter: 283 lb. BP: 142/82 Patient's last menstrual period was 12/26/2024. ASSESSMENT & PLAN ICD-10-CM 1. Second trimester ([facility]) Z34.92 POCT urinalysis dipstick manually resulted 2. 21 weeks gestation of ([facility]) Z3A.21 3. induced hypertension, antepartum ([facility]) O13.9 4. Vitamin D deficiency E55.9 5. H/O pre-eclampsia in prior , currently ([facility]) O09.299 Return OB: Patient presents today [...] of: Rody Qiu NP documented in this encounterCenterpoint Medical CenterRnhqnaffrq19-24-9470 History of Present illness Narrative* Bethany Lundy [...] No Have you been seen here at [facility] in a previous ? No Recent ER visits or hospitalizations? Yes, for slicing thumb on mandolin Bring blood sugar log or meter with you today? (Please bring them with you for every visit at [facility]) N/A Flu vaccine (Jun-October)? N/A Any [...] TESTS AND ULTRASOUND REPORTS: Referral records and [facility] chart were reviewed Pertinent Ultrasound findings [...] recommended threshold of 160/110. Referenc e: PMID: [id number], 2021. Blood pressures do increase as progresses [...] preeclampsia prevention as is recommended by the [place] College of Gynecology Committee Opinion No. 743. [...] patient is in complete care of her application penetration tester. Patient does have ultrasound and office visit scheduled with us. Thank you for allowing me to participate in the care of Ellen Ramires. If there any questions please do not hesitate to contact us. Yordy Cruz MD Maternal- Medicine [address] [place] [address] This document was created with [employer] technology. Though I make every effort to review the dictation as it is transcribed, on occasion the spoken word can be misinterpreted by the technology leading to inappropriate words, phrases, or sentences. This note is addressed to the requesting provider as a consultation for clinical guidance. Specificmedical abbreviations are occasionally used and those are generally approved by the [place]?Board of?Obstetrics and?Gynecology?as well as?Rama tapia abbreviations. The above plan of care was based solely on the diagnoses for which a consultation was requested. ?More frequent testing may be indicated based on her other medical/obstetrical conditions. The management of other or medical conditions is beyond the scope of requested consultation and will c ontinue to be followed by the primary application penetration tester or primary care provider. Note to patient: [...] Blood drawn for cell-free DNA testing per [facility] phlebotomy. Patient tolerated well. documented in this encounterMercy [facility]09-04-2025 History of Present illness Narrative* Rody [...] (polycystic ovarian syndrome) 07/30/2024 induced hypertension, antepartum ([facility]) 04/25/2025 Resolved Ambulatory Problems Diagnosis Date [...] nursing note reviewed. Exam conducted with a sound printer present. Vitals: Estimated body mass index is 42.88 kg/m as calculated from the following: Height as of 06/11/24: 5' 8 . Weight as of this encounter: 282 lb. BP: 138/82 Patient's last menstrual period was 12/26/2024. ASSESSMENT & PLAN ICD-10-CM 1. Screening, , for anatomic survey ([facility]) Z36.89 CANCELED: US OB 14+ weeks anatomy scan 2. Second trimester ([facility]) Z34.92 POCT urinalysis dipstick manually resulted 3. 17 weeks gestation of ([facility]) Z3A.17 4. Screen for STD (sexually transmitted disease) Z11.3 SURESWAB(R) ADVANCED VAGINITIS PLUS, TMA CHLAMYDIA TRACHOMATIS (GENITO/STI) Neisseria gonorrhea DNA probe, direct 5. Need for maternal serum alpha-protein (MSAFP) screening ([facility]) Z36.1 Alpha fetoprotein, maternal Alpha fetoprotein, maternal 6. induced hypertension, antepartum ([facility]) O13.9 7. Vitamin D deficiency E55.9 [...] of: Caesar Broderick DO documented in this encounterCenterpoint Medical CenterFkdphgpykz25-56-3725 History of Present illness Narrative* Karoline Casillas, REWORK MACHINE OPERATOR - 04/11/2025 10:30 AM EDT Reason [...] nursing note reviewed. Exam conducted with a sound printer present. Vitals: Estimated body mass index is 42.63 kg/m as calculated from the following: Height as of 06/11/24: 5' 8 . Weight as of this encounter: 280 lb 6.4 oz. BP: 140/86 Patient's last menstrual period was 12/26/2024. ASSESSMENT & PLAN ICD-10-CM 1. 15 weeks gestation of ([facility]) Z3A.15 POCT urinalysis dipstick manually resulted 2. Second trimester ([facility]) Z34.92 POCT urinalysis dipstick manually resulted 3. Acute nonintractable headache, unspecified headache type R51.9 4. BP check Z01.30 Patient presents today for a routine obstetrics appointment. Patient is currently 15w1d with a Estimated Date of Delivery: 10/02/25. Patient is having persistent elevated HTN. Discussed patient being referred to [facility] for management and recommendations for Gestational HTN. Patient is agreeable with referral. Patient to be started on Labetalol 200mg BID. Patient given labs and 24 hour urine to have obtained for baseline testing. Patient aware that once lab results are obtained then referral will be completed, so then all results can be sent to [facility] at onetime. Patient to return to clinic in 4 weeks for routine OB appointment. Patient to reach out to office with any concerns/questions. Documented by Karoline Casillas LPN on behalf of: Caesar Broderick DO documented in this encounterCenterpoint Medical CenterOmwtfkkmhc16-27-7041 History of Present illness Narrative* Karoline Casillas [...] nursing note reviewed. Exam conducted with a sound printer present. Vitals: Estimated body mass index is 42.29 kg/m as calculated from the following: Height as of 24: 5' 8 . Weight as of this encounter: 278 lb 1.9 oz. BP: 138/80 Patient's last menstrual period was 12/26/2024. ASSESSMENT & PLAN ICD-10-CM 1. 13 weeks gestation of ([facility]) Z3A.13 POCT urinalysis dipstick manually resulted 2. Second trimester ([facility]) Z34.92 POCT urinalysis dipstick manually resulted [...] or undercooked meat, and stay away from [facility]. Patient has been consulted regarding any [...] of: Caesar Broderick DO documented in this encounterCenterpoint Medical CenterOuviajocbr46-60-6357 History of Present illness Narrative* Melanie Almaraz [...] dipstick manually resulted , unspecified gestational age ([facility]) - Type and screen; Future - ABO/Rh; Future - CBC and differential - Hemoglobin A1c - RPR - Rubella antibody, IgG - Hepatitis B surface antigen - Hepatitis C antibody - HIV-1 and HIV-2 antibodies - Rapid drug screen, urine; Future Encounter for supervision of normal first in first trimester ([facility]) - Rapid drug screen, urine; Future 9 weeks gestation of ([facility]) Nurse Note: Pt uncertain of doing the Maxwell Billion to one. Advised pt if she does to make sure both labs and Maxwell is done at the same time. PVU. Pt did state she had a Vit. D deficiency and has a h/o high blood pressure with G1. Kalani Hatch advised patient showed in dating [place] today [...] or undercooked meat, and stay away from [facility]. Patient has also been advised to [...] by: Melanie Almaraz MA documented in this encounterCenterpoint Medical CenterMzrdnbznrj17-04-0881 History of Present illness Narrative* Robbie Lopez MD - 01/03/2025 10:45 AM EDT Images from the original note were not included. Visit Type: In Person reviewed, Authorization obtained to share with partner. NEW FERTILITY PATIENT VISIT Referred by: Dr. Caesar rBoderick Accompanied today by: Singh Ramires - Ellen [...] bilateral tubal patency Saline Infused Sonography: None ROBOT OPERATOR Pelvic Ultrasound: 2023 FINDINGS: UTERUS: Normal [...] 10/2024 Thyroid profile includes TSH FT4 Order: [id number] Component Ref Range & Units 2 mo [...] -- -- -- 2.68 -- -labs done [id number] Relationship Status: Have you ever been ? [...] complications with delivery -Breastfed x 1 year ROBOT OPERATOR HISTORY Have you ever been diagnosed [...] Singh Ramires Partner : 08/09/89 Partner email: [email or web address] 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 Tadalafil - 10mg as needed Injuries: No STD: No Please select all that are applicable: SA: Yes SA Results: Yes -Done at [facility] 2023- reports was told normal, no [...] on file. documented in this encounterUniversity [facility]als [facility] Work Phone: 1(573) 772-939305-15-2025 Instructions* Patient Instructions* Robbie Lopez MD - [...] 11:05 AM documented in this encounterUniversity Hospitals [facility] Work Phone: 1(648) 888-484304-29-2025 History of Present illness Narrative* Kita Griggs [...] nursing note reviewed. Exam conducted with a sound printer present. Vitals: Estimated body mass index is [...] after allowing sufficient time to take affect. supervisor picking crew and scissors used to remove affected area. Placed in formalin and sent to pathology. Post-procedure instructions given. Follow Up: as needed Documented by Kita Griggs LPN on behalf of: Caesar Broderick DO documented in this encounterCenterpoint Medical [id number] History of Present illness Narrative* Melanie Almaraz [...] nursing note reviewed. Exam conducted with a sound printer present. Vitals: Estimated body mass index is [...] of: Caesar Broderick DO documented in this encounterCenterpoint Medical [id number] History of Present illness Narrative* Karoline Casillas [...] of: Caesar Broderick DO documented in this encounterCenterpoint Medical CenterDsbiqfqwkc07-04-6111 History of Present illness Narrative* Kita Griggs [...] nursing note reviewed. Exam conducted with a sound printer present. Vitals: Estimated body mass index is [...] of: Caesar Broderick DO documented in this encounterCenterpoint Medical [id number] History of Present illness Narrative* Karoline Casillas [...] nursing note reviewed. Exam conducted with a sound printer present. Vitals: Estimated body mass index is [...] of: Caesar Broderick DO documented in this encounterCenterpoint Medical [id number] History of Present illness Narrative* Whitney Painting - 05/03/2024 11:40 AM EDT Reason for Appointment: Patient ID: Ellen Ramires is a 34 y.o. female who presents for Pre-op Visit Patient presents today for Pre Op appointment. Patient is scheduled to undergo Diagnostic Laparoscopy, possible FLAKITO, possible FOE, possible BSO, possible Chromopertubation on 06/01/[address] Broderick at [facility]. MEDICATIONS Current Outpatient Medications Medication Instructions D-400 [...] nursing note reviewed. Exam conducted with a sound printer present. Vitals: There is no height or [...] reviewed, and patient is to proceed to [facility] OR. Follow Up: Patient is to follow up between 1-2 weeks post operative to assess proper healing and recovery fromprocedure. Documented by Karoline Casillas LPN on behalf of: Caesar Broderick DO documented in this encounterCenterpoint Medical [id number] History of Present illness Narrative* Kita Griggs [...] nursing note reviewed. Exam conducted with a sound printer present. Vitals: There is no height or [...] of: Caesar Broderick DO documented in this encounterCenterpoint Medical [id number] History of Present illness Narrative* James Fraire [...] Complaint Patient presents with New Patient SENIOR DIRECTOR PALPITATIONS SCHED W/ PT LABS HM [...] FOLLOW UP No follow-ups on file. PCP: [facility] Jazmín Referring Physician: Sabiha Aviles [place] [address] documented [facility] Miscellaneous Notes* Telephone Encounter - Sheyla Powell CMA - 03/12/2024 2:47 PM EDT Left message for patient to remind them to bring their most current medication list with them to their appointment. documented in this encounter[facility] Telephone encounter Note* Telephone Encounter - Sheyla Powell CMA - 03/12/2024 2:47 PM EDT Left message for patient to remind them to bring their most current medication list with them to their appointment. [facility]02-[facility] Evaluation note* Encounter Date Diagnosis Assessment [...] the onset of your symptoms of COVID [employer] Other Chief complaint+Reason for visit Narrative* Chief Complaint sinus pressure, coug h Reason for Visit Contact with and (matt spected) exposure to covid-19 Sore throat Sinusitis [facility] Work Phone: Evaluation note* Diagnosis Onset Date Resolution Status Contact with and (suspected) exposure to covid-19 acuteSore throatacuteSinusitisnoneactive [facility] Work Phone: Evaluation note* Diagnosis Postoperative visit S/P laparoscopic procedure Other postprocedural status documented in this encounter [facility] HealthcareEvaluation note* Diagnosis PCOS (polycystic ovarian syndrome) Polycystic ovaries Encounter for fertility planning documented in this encounter [facility] HealthcareEvaluation note* Diagnosis Pre-op examination Pelvic pain in female Unspecified symptom associated with female genital organs Fallopian tube disorder Unspecified noninflammatory disorder of ovary, fallopian tube, and broad ligament documented in this encounter [facility] HealthcareEvaluation note* Diagnosis Encounter for fertility planning PCOS (polycystic ovarian syndrome) Polycystic ovaries Pelvic pain in female Unspecified symptom associated with female genital organs Abnormal uterine bleeding (AUB) documented in this encounter [facility] HealthcareEvaluation note* Diagnosis Heart palpitations- Primary Palpitations documented in this [facility]* Diagnosis Encounter for fertility planning Acute cystitis without hematuria PCOS (polycystic ovarian syndrome) Polycystic ovaries Fallopian tube disorder Unspecified noninflammatory disorder of ovary, fallopian tube, and broad ligament documented in this encounter [facility] HealthcareEvaluation note* Diagnosis Well woman exam with routine gynecological exam Routine gynecological examination documented in this encounter [facility] HealthcareEvaluation note* Diagnosis Skin mole documented in this encounter [facility] HealthcareEvaluation noteNo assessment information availableSelect [facility] Work Phone: Evaluation note* Diagnosis Encounter for preprocedural laboratory examination- Primary Abnormal uterine bleeding Unspecified disorder of menstruation and other abnormal bleeding from female genital tract documented in this encounter [facility] Work Phone: Evaluation note* Diagnosis Amenorrhea Absence of menstruation Missed menses , unspecified gestational age ([facility]) Encounter for supervision of normal first in first trimester ([facility]) 9 weeks gestation of ([facility]) Vitamin D deficiency History of hypertension Personal history of other diseases of circulatory system documented in this encounter [facility] HealthcareEvaluation note* Diagnosis 13 weeks gestation of ([facility]) Second trimester ([facility]) state, incidental Acute nonintractable headache, unspecified headache type documented in this encounter [facility] HealthcareEvaluation note* Diagnosis 15 weeks gestation of ([facility]) Second trimester ([facility]) state, incidental Acute nonintractable headache, unspecified headache type BP check Screening for hypertension Gestational hypertension, antepartum ([facility]) induced hypertension, antepartum ([facility]) Transient hypertension of , antepartum documented [facility]* Diagnosis Hypertension affecting in second trimester- Primary [facility] Diagnosis Screening, , for anatomic survey ([facility]) Encounter for anatomic survey Second trimester ([facility]) state, incidental 17 weeks gestation of ([facility]) Screen for STD (sexually transmitted disease) Screening examination for venereal disease Need for maternal serum alpha-protein (MSAFP) screening ([facility]) induced hypertension, antepartum ([facility]) Transient hypertension of , antepartum Vitamin D deficiency documented in [facility]* Diagnosis Chronic 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 Severe obesity due to excess calories affecting , antepartum ([facility]) 20 weeks gestation of documented in this [facility]* 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 Chronic hypertension affecting Severe obesity due to excess calories affecting , antepartum ([facility]) Hypertension affecting in second trimester documented in this [facility]* 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 Chronic hypertension affecting Severe obesity due to excess calories affecting , antepartum ([facility]) Hypertension affecting in second trimester documented in this encounter [facility]* Diagnosis Chronic hypertension affecting ([facility])- Primary Second trimester ([facility]) state, incidental 22 weeks gestation of ([facility]) documented in this encounter [facility]* Diagnosis Second trimester ([facility]) state, incidental 21 weeks gestation of ([facility]) induced hypertension, antepartum ([facility]) Transient hypertension of , antepartum Vitamin D deficiency H/O pre-eclampsia in prior , currently ([facility]) documented in this encounter [facility]* Diagnosis Second trimester ([facility]) state, incidental 23 weeks gestation of ([facility]) documented in this encounter [facility]* Diagnosis Chronic hypertension affecting - Primary 20 weeks gestation of Anxiety disorder affecting , 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 Severe obesity due to excess calories affecting , antepartum ([facility]) [facility] Diagnosis Second trimester ([facility]) state, incidental 25 weeks gestation of ([facility]) H/O pre-eclampsia in prior , currently ([facility]) Vitamin D deficiency Chronic hypertension affecting ([facility]) Diabetes mellitus screening Screening for diabetes mellitus documented in this encounter [facility] HealthcareInstructionsNot on filedocumented in this encounterFult[facility] SystemInstructionsNot on filedocumented in this encounterFulton [facility] SystemInstructionsNot on filedocumented in this encounterFulton [facility] SystemInstructionsNot on filedocumented in this encounterFulton [facility] System InstructionsNot on filedocumented in this [facility] System InstructionsNot on filedocumented in this [facility] InstructionsNot on filedocumented in this encounterF[facility] InstructionsNot on filedocumented in this encounterFulton [facility] System InstructionsNot on filedocumented in this [facility] Family History No Family [...] [facility] AT PCPSpecialtyDiagnoses / ProceduresReferred By Contact Referred To ContactCardiology Diagnoses Heart palpitations Sabiha Aviles, KRISTINE-UNIX MANAGER [address] [place] [address] [facility] [address] [place] [address] Referral IDStatusReasonStart DateExpiration DateVisits RequestedVisits [id number] Review Specialty Services Required /[id number] ExamReason CommentsMole removalReasonCommentsInfertilityReasonCommentsAmenorrheaReason CommentsRoutine VisitReasonCommentsgHTNPCOS Care Teams [...] DateEnd Date Kromer, Judy PCP - [facility]7/09/14Team MemberRelationshipSpecialtyStart DateEnd Date Kromer, Judy PCP - [facility]7/09/14Team MemberRelationshipSpecialtyStart DateEnd Date Kromer, Judy PCP - [facility]7/09/14Team MemberRelationshipSpecialtyStart DateEnd Date Kromer, Judy PCP - [facility]7/09/14Team MemberRelationshipSpecialtyStart DateEnd Date Kromer, Judy PCP - [facility]7/09/14Team MemberRelationshipSpecialtyStart DateEnd Date Kromer, Judy PCP - [facility]7/09/14Team MemberRelationshipSpecialtyStart DateEnd Date Kromer, Judy PCP - [facility]7/09/14Team MemberRelationshipSpecialtyStart DateEnd Date [address] [place] PCP - GeneralFamily Medicine11/12/22Team MemberRelationshipSpecialtyStart DateEnd Date [facility] [address] [place], [place] PCP - GeneralFamily Medicine11/12/22Team MemberRelationshipSpecialtyStart DateEnd Date [facility] [address] [place] PCP - GeneralFamily Medicine11/12/22Team MemberRelationshipSpecialtyStart DateEnd Date Kromer, Judy PCP - [facility]02/20/24Team MemberRelationshipSpecialtyStart DateEnd Date Kromer, Judy PCP - [facility]02/20/24Team MemberRelationshipSpecialtyStart DateEnd Date Kromer, Judy PCP - [facility]02/20/24Team MemberRelationshipSpecialtyStart DateEnd Date Kromer, Judy PCP - [facility]02/20/24 Team Status: Inactive Member Role Status Dates Caesar Broderick DO Attending Provider Active Start : December 18, 2024 End: December 18, 2024Team MemberRelationshipSpecialtyStart DateEnd Date June Trinidad LPN Licensed Practical NurseReproductive Endocrinology and Infertility01/01/25Team MemberRelationshipSpecialtyStart DateEnd Date Kromer, Judy PCP - [facility]02/20/24Team MemberRelationshipSpecialtyStart DateEnd Date Kromer, Judy PCP - [facility]02/20/24Team MemberRelationshipSpecialtyStart DateEnd Date Kromer, Judy PCP - [facility]02/20/24Team MemberRelationshipSpecialtyStart DateEnd Date Judy Caal PCP - [facility]02/20/24am MemberRelationshipSpecialtyStart DateEnd Date Services, [facility] [address] [place], [place] PCP - GeneralFamily Medicine11/03/24Team MemberRelationshipSpecialtyStart DateEnd Date Services, [facility] [address] [place], [place] PCP - GeneralFamily Medicine11/03/24Team MemberRelationshipSpecialtyStart DateEnd Date Lima Caalsa PCP - [facility]02/20/24Team MemberRelationshipSpecialtyStart DateEnd Date [facility], [facility] [address] [place], [place] PCP - GeneralFamily Medicine11/03/24Team MemberRelationshipSpecialtyStart DateEnd Date Services, [facility] [address] [place], [place] PCP - GeneralFamily Medicine11/03/24Team MemberRelationshipSpecialtyStart DateEnd Date [facility] [address] [place], [place] PCP - GeneralFamily Medicine11/03/24Team MemberRelationshipSpecialtyStart DateEnd Date Andres Caalyssa PCP - [facility]02/20/24Team MemberRelationshipSpecialtyStart DateEnd Date Afua Judy PCP - [facility]02/20/24Team MemberRelationshipSpecialtyStart DateEnd Date Services, [facility] [address] [place], [place] PCP - GeneralFamily Medicine11/03/24Team MemberRelationshipSpecialtyStart DateEnd Date Judy Caal PCP - [facility]02/20/24 Goals (unrecognized section and content) Goals may be documented in a n alternate section INFORMATION SOURCE (unrecogn ized section and content) DATE CREATED AUTHOR 12/29/2024 [facility] DATE CREATED AUTHOR AUTHOR'S ORGANIZ ATION 01/07/2025 [facility] DATE CREATED AUTHOR AUTHOR'S ORGANIZ ATION 06/19/2025 [facility] DATE CREATED AUTHOR AUTHOR'S ORGANIZ ATION 06/20/2025 [facility] DATE CREATED AUTHOR AUTHOR'S ORGANIZ ATION 06/25/2025 [facility] EPIC FOR RECORDS [...] BE BASED ON THE PRIMARY CLINICAL RECORDS. [employer] provides no warranty or guarantee of the accuracy or completeness of information in this document.
[2025-07-26 15:12] VITALS: BP 137/78; PULSE 86
== END 2025-07-26 15:41 | disposition home or self-care (01) ==
LOC: US 15:04 → FBC 15:06
PROVIDERS: Visit Provider Obstetrics & Gynecology
DX: O16.3 Unspecified maternal hypertension, third trimester (principal)
CPT/HCPCS: 59025

== ENCOUNTER 2025-07-30 10:14 | Outpatient (OUT) | payer MEDICAID, SELFPAY ==
[2025-07-30 10:21] VITALS: BP 134/71; PULSE 95
--- OUTSIDE RECORDS SUMMARY | 2025-07-30 10:23 | XMS_ITS | CCD ---
Author Organization [facility] Care Team Providers Care Security Police Officer Name Role Phone Pinky Singh Unavailable Judy Caal Unavailable Unavailable Unavailable Primary Care Provider Unavailabl e Services, [facility] Primary Care Provider Caesar Broderick DO Attending Provider Caesar Broderick Attending Unavailable Davie, Caesar Admitting Unavailable White CUSTOMER RETENTION SPECIALIST, June A Unavailable Unavailable ROBBIE LOPEZ Attending Unavailable Services, [facility] Primary Care Provider SERVICES, [facility] Unava ilable MILLIE VILLAGRAN Attending Unavailable SERVICES, [facility] Unava ilable FRANCIE ABRAMS Attending Unavailable DAVIE, CAESAR R Referring Unavailable SERVICES, [facility] Unava ilable DAVIE, CAESAR R Referring Unavailable SERVICES, [facility] Unava ilable YORDY CRUZ Attending Unavailable DAVIE, CAESAR R Referring Unavailable SERVICES, [facility] Unava ilable DAVIE, CAESAR R Referring Unavailable SERVICES, [facility] Unava ilable YORDY CRUZ Attending Unavailable DAVIE, CAESAR R Referring Unavailable SERVICES, [facility] Unava ilable Services, [facility] Primary Care Provider DEWEY BRODERICKY Attending Unavailable DAVIE, CAESAR Attending Unavailable DAVIE, CAESAR Attending Unavailable DAVEI, CAESAR Attending Unavailable DAVIE, CAESAR Attending Unavailable DAVIE, CAESAR Attending Unavailable DAVIE, CAESAR Attending Unavailable UYEN, RODY Attending Unavailable UYEN, RODY Attending Unavailable UYEN, RODY Attending Unavailable DAVIE, CAESAR Attending Unavailable Medications Current Medications MedicationDrug Class(es)DatesSig (Normalized)Sig (Original)amoxicillin 875 mg / clavulanate 125 mg oral tablet (2 sources)Penicillin-class AntibacterialStart: 81-10-5669bwjp 1 tablet by mouth twice dailyAmoxicillin-Pot Clavulanate 875-125 mg tablet Active 1 TAB PO Twice daily November 24, 2023 12:00amaspirin 81 mg delayed release oral tablet (4 sources)Platelet Aggregation Inhibitor, Nonsteroidal Anti-inflammatory Drug take 1 tablet by mouth in the morningaspirin 81 mg Take 1 tablet (81 mg total) by mouth in the morning. Activecholecalciferol 0.01 mg oral tablet (20 sources)Vitamin DStart: 16-16-5845ojwmyppubvijcqj 10 mcg (400 unit) tablet 2 tablets (800 Units total) in the morning. 01/26/2024 ActiveStart: 01-26-2024 End: 11-57-0821Dnvzzjvjyddzhls 10 MCG (400 UNIT) chewable tablet 1 (one) time each day at the same time Discontinued (Therapy completed) End: 01-70-8343nonl 2 tablets by mouth once dailyD-400 10 MCG (400 UNIT) tablet TAKE 2 TABLETS BY MOUTH ONCE DAILY FOR 30 DAYS 03/28/2025 Discontinuedclobetasol propionate 0.0005 mg/mg topical ointment (3 sources)CorticosteroidStart: 05-17-2025 End: 99-33-3465qfwpzrokvA (TEMOVATE) 0.05 % ointment Indications: Acute palmoplantar pustular psoriasis , Chronic hypertension affecting , 20 weeks gestation of Apply a thin layer to the affected areas twice daily. 30 g 05/17/2025 05/31/2025 ActiveclomiPHENE citrate 50 mg oral tablet (3 sources)Estrogen Agonist/AntagonistStart: 11-12-2024 End: 94-72-4540xxrg 2 tablets by mouth once dailyclomiPHENE (Clomid) 50 MG tablet Indications: Encounter for fertility planning , PCOS (polycystic ovarian syndrome) , Fallopian tube disorder Take 2 tablets (100 mg) by mouth Daily for 5 days 10 tablet 11/12/2024 11/17/2024 Activefluticasone propionate 0.05 mg/actuat metered dose nasal spray (4 sources)CorticosteroidStart: 11-24-2023 End: 01-31-8615fghzqzxxkvs (Flonase) 50 MCG/ACT nasal spray Daily 11/24/2023 04/10/2024 Discontinued (Other)Start: 77-77-1361wcxn 1 spray(s) nasal route once dailyFluticasone Propionate 50 mcg/actuation spray,suspension Active 2 SPRAY INTRANASAL Daily November 24, 2023 12:00am administer into each nostril labetalol hydrochloride 100 mg oral tablet (14 sources)beta-Adrenergic BlockerStart: 06-24-2025 End: 57-30-5415myfq 1 tablet by mouth once dailylabetalol (Normodyne) 100 MG tablet Indications: Hypertension Take 1 tablet (100 mg) by mouth Daily30 tablet 3 06/24/2025 07/24/2025 ActiveStart: 05-16-2025 End: 82-61-6979fwkv 1 tablet by mouth once at bedtimelabetalol (Normodyne) 200 MG tablet Indications: Second trimester (HHS-HCC) , Gestational hypertension, antepartum (HHS-HCC) TAKE 1 TABLET (200 MG) BY MOUTH IN THE MORNING AND AT BEDTIME 60tablet 2 05/16/2025 05/23/2025 Discontinued (Ineffective)Start: 04-11-2025 End: 2937jbgh 1 tablet by mouth once in the morninglabetalol (Normodyne) 200 MG tablet Indications: Second trimester (HHS-HCC) , Gestational hypertension, antepartum (HHS-HCC) Take 1 tablet (200 mg) by mouth in the morning and 1 tablet (200mg) before bedtime. 60 tablet 04/11/2025 05/11/2025 Active End: 98-37-4419syuz 1 tablet by mouth in the morning, then take 1 tablet by mouth at bedtimelabetaloL (NORMODYNE) 200 mg tablet Take 1 tablet (200 mg total) by mouth in the morning and 1 tablet (200 mg total) before bedtime. 05/17/2025 Discontinuedmagnesium oxide 400 mg oral tablet (15 sources)Start: 03-28-2025 End: 13-48-6793bkim 1 tablet by mouth once dailymagnesium oxide (Mag-Ox) 400 MG tablet Indications: Second trimester (HHS-HCC) , Acute nonintractable headache, unspecified headache type Take 1 tablet (400 mg) by mouth Daily 30 tablet 6 03/28/2025 04/27/2025 ActivemetFORMIN hydrochloride 500 mg oral tablet (20 sources)BiguanideStart: 33-53-8447lviKGZFKD (Glucophage) 500 mg tablet 1 tablet (500 mg). 05/22/2024 ActiveStart: 04-10-2024 End: 71-52-2018mbng 1 tablet by mouth every twenty-four hours at mealtime metFORMIN XR (Glucophage-XR) 500 MG 24 hr tablet Indications: PCOS (polycystic ovarian syndrome) , Abnormal uterine bleeding (AUB) Take 1 tablet (500 mg) by mouth in the evening. Take with meals Do not crush, chew, or split. 30 tablet 11 04/10/2024 03/01/2025 Discontinued (Therapy completed) End: 67-27-4377phet 1 tablet by mouth once daily at breakfastmetFORMIN XR (GLUCOPHAGE XR) 500 mg 24 hr tablet Take 1 tablet (500 mg total) by mouth daily with breakfast. 05/17/2025 DiscontinuedNIFEdipine 30 mg osmotic 24 hr extended release oral tablet (20 sources)Dihydropyridine Calcium Channel BlockerStart: 28-31-8959lrzr 2 tablets by mouth every twenty-four hours at bedtimeNIFEdipine XL (PROCARDIA XL) 30 mg 24 hr tablet Indications: Chronic hypertension affecting , 20 weeks gestation of Take 2 tablets (60 mg total) by mouth in the morning and at bedtime. 60 tablet 2 06/18/2025 ActiveStart: 05-30-2025 End: 33-35-8214sqyu 1 tablet by mouth once daily in the morningNIFEdipine XL (Procardia XL) 60 MG 24 hr tablet Indications: Chronic hypertension affecting ([facility]-HCC) Take 1 tablet (60 mg) by mouth Daily Take 1 tablet in the am. Do not crush, chew, or split. 30 tablet 3 05/30/2025 05/30/2026 ActiveStart: 08-19-1490qhce 1 tablet by mouth once dailyProcardia XL 30 MG 24 hr tablet Take 30 mg by mouth Daily 05/17/2025 ActiveStart: 05-17-2025 End: 98-38-5308aoxh 1 tablet by mouth every twenty-four hours at bedtime NIFEdipine XL (PROCARDIA XL) 30 mg 24 hr tablet Indications: Chronic hypertension affecting , 20 weeks gestation of Take 1 tablet (30 mg total) by mouth in the morning and at bedtime. 60 tablet 2 05/17/2025 06/18/2025 DiscontinuedpredniSONE 20 mg oral tablet (2 sources)Start: 70-03-4813kncj 1 tablet by mouth twice dailyPrednisone 20 mg tablet Active 20 MG PO Twice daily 10 November 24, 2023 12:00amprenatal 115/iron/folic acid ( 19 ORAL) (4 sources)take 1 tablet by mouth in the morningprenatal 115/iron/folic acid ( 19 ORAL) Take 1 tablet by mouth in the morning. Activesertraline 25 mg oral tablet (20 sources)Serotonin Reuptake InhibitorStart: 37-45-4586jizr 1 tablet by mouth in the morningsertraline (ZOLOFT) 25 mg tablet Indications: Anxiety disorder affecting , antepartum Take1 tablet (25 mg total) by mouth in the morning. 30 tablet 1 06/18/2025 ActiveStart: 85-23-4819tleq 1 tablet by mouth in the morningsertraline (ZOLOFT) 50 mg tablet Indications: Anxiety disorder affecting , antepartum Take1 tablet (50 mg total) by mouth in the morning. 30 tablet 1 06/18/2025 ActiveStart: 11-06-2024 End: 41-80-9079mmnl 2 tablets by mouth once dailysertraline (Zoloft) 25 MG tablet Take 50 mg by mouth 1 (one) time each day at the same time 11/06/2024 ActiveStart: 11-06-2024 End: 10-88-1768kojt 3 tablets by mouth at bedtimesertraline (ZOLOFT) 25 mg tablet Take 3 tablets (75 mg total) by mouth before bedtime. 11/06/2024 DiscontinuedStart: 11-06-2024 End: 06-06-4749ahuhyaaupx (Zoloft) 25 MG tablet 1 (one) time each day at the same time 11/06/2024 ActiveStart: 08-04-2023 End: 97-50-5474qxlh 1 tablet by mouth once dailysertraline (Zoloft) 50 MG tablet Take 50 mg by mouth Daily 08/04/2023 04/10/2024 Discontinued (Other)sertraline (ZOLOFT) 25 mg tablet Take by mouth daily. Active Completed/Discontinued Medications MedicationDrug Class(es)DatesSig (Normalized)Sig (Original)omeprazole 20 mg delayed release oral capsule (20 sources)Proton Pump InhibitorStart: 01-24-2024 End: 28-77-7443qpld 1 capsule by mouth in the morningomeprazole (PriLOSEC) [address] capsule Take 20 mg by mouth in the morning. 01/24/2024 03/28/2025 Dis continued Problems Active Problems Problem ClassificationProblemDateDocumented DateEpisodic/ChronicAbdominal pain (3 sources)Pain in female pelvis; Translations: [Pelvic and perineal pain] 58-02-2924CnnupinqLgzikgn disorders (1 source)Anxiety disorder, unspecified; Translations: [Anxiety disorder, unspecified]Onset: 54-12-3719ZsaspjgYwuldugzlyier and procreative management (10 sources)Patient encounter status; Translations: [Encounter for other procreative management]23-02-5629SenxjcyiTlirvedo; including migraine (4 sources)Acute headache; Translations: [Acute nonintractable headache, unspecified headache type]00-63-9468KpjhauodGqswczvzzmth complicating ; childbirth and the puerperium (18 sources)Hypertension complicating ; Translations: [Unspecified maternal hypertension, second trimester]Onset: hronic Hypertension complicating ; childbirth and the puerperium (20 sources)Hypertension AND/OR vomiting complicating childbirth AND/OR puerperium; Translations: [Gestational [-induced] hypertension without significant proteinuria, unspecified trimester]Onset: 04-25-2025 40-20-1677FnemmzdaJuxuqbfidalmf and screening for infectious disease (6 sources)Contact with and (suspected) exposure to other viral communicable diseases; Translations: [Contact with or exposure to other viral diseases] EpisodicMenstrual disorders (2 sources)Amenorrhea; Translations: [Amenorrhea, unspecified]31-85-7440Ijlehol Nutritional deficiencies (20 sources)Vitamin D deficiency; Translations: [Vitamin D deficiency, unspecified]Onset: 916675-33-5560UdltobxIcvm wounds of extremities (2 sources)Laceration without foreign body of right thumb without damage to nail, initial encounter; Translations: [Laceration of finger]Onset: 04-29-2025 EpisodicOther aftercare (2 sources)Postoperative visit; Translations: [Encounter for other specified surgical aftercare]68-30-2997ZsadfuofTswdl and unspecified benign neoplasm (1 source)Pigmented skin lesion ; Translations: [Melanocytic nevi, unspecified] 90-00-4415RagizrmzVwxcw circulatory disease (1 source)H/O: hypertension; Translations: [Personal history of other diseases of the circulatory system]75-98-5613IutxkumsGeluv complications of (5 sources)Maternal obesity complicating , childbirth and the puerperium, antepartum; Translations: [Obesity complicating , unspecified trimester]27-66-0635LqewjnzJqliw complications of (2 sources)Obesity complicating , unspecified trimester; Translations: [Obesity complicating , unspecified trimester]Onset: 36-64-6429Vsccgfl Other complications of (17 sources)History of pre-eclampsia; Translations: [Supervision of with other poor reproductive or obstetric history, unspecified trimester]Onset: 934140-40-3065WdangqrmMlvlk complications of (2 sources)Other mental disorders complicating , unspecified trimester; Translations: [Mental disorders of mother, antepartum condition or complication] Onset: 319528-12-0462NptlqgfxRvghb endocrine disorders (20 sources)Polycystic ovary syndrome; Translations: [Polycystic ovarian syndrome]Onset: 270195-80-8172DrrswnbKcrrn female genital disorders (4 sources)Abnormal uterine bleeding; Translations: [Abnormal uterine and vaginal bleeding, unspecified]14-37-0434MxnuteoJfmjp female genital disorders (2 sources)Abnormal uterine and vaginal bleeding, unspecified; Translations: [Abnormal uterine and vaginal bleeding, unspecified]Onset: 36-86-4932Dskwyvr Other inflammatory condition of skin (5 sources)Pustular psoriasis of palms and soles; 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]94-28-2068GfrdehfMbush inflammatory condition of skin (2 sources)Pustulosis palmaris et plantaris; 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]Onset: 43-41-7281AoujxscLklmw nutritional; endocrine; and metabolic disorders (2 sources)Morbid (severe) obesity due to excess calories; Translations: [Morbid (severe) obesity due to excess calories]Onset: 77-89-5500MagmsyxXavux and delivery including normal (16 sources); Translations: [Encounter for supervision of normal , unspecified, unspecified trimester]82-81-1507LmynupmeTjzns screening for suspected conditions (not mental disorders or infectious disease) (2 sources)Alpha-fetoprotein blood test status; Translations: [Encounter for screening for raised alphafetoprotein level]76-28-1876BrviqsacLjvky upper respiratory infections (1 source)Chronic sinusitis, unspecified; Translations: [Unspecified sinusitis (chronic)]32-82-9069ZnnycrkLjbcy upper respiratory infections (3 sources)Sore throat symptom; Translations: [Acute pharyngitis, unspecified] 46-10-4210OlqqpfekDntgpsvn codes; unclassified (2 sources)History of laparoscopy; Translations: [Other specified postprocedural states]37-82-6326TmzfsczaJjggjmkw codes; unclassified (1 source)Gestation period, 9 weeks; Translations: [9 weeks gestation of ]37-38-3533WdsluiziJcqfmchj codes; unclassified (2 sources)Gestation period, 13 weeks; Translations: [13 weeks gestation of ]51-06-1432OskyecdbTmuryknk codes; unclassified (2 sources)Gestation period, 15 weeks; Translations: [15 weeks gestation of ]73-22-1840YmrindosApxtbvxw codes; unclassified (2 sources)Gestation period, 17 weeks; Translations: [17 weeks gestation of ]94-85-1770VgwifviuFxaycpmb codes; unclassified (2 sources)Gestation period, 20 weeks; Translations: [20 weeks gestation of ]77-98-9559UbowskazFbhzqski codes; unclassified (2 sources)Gestation period, 22 weeks; Translations: [22 weeks gestation of ]62-56-4578VeajwgaoZoqpudno codes; unclassified (2 sources)Gestation period, 21 weeks; Translations: [21 weeks gestation of ]92-04-8139IqagasuxXtcjwblk codes; unclassified (2 sources)Gestation period, 23 weeks; Translations: [23 weeks gestation of ]70-72-9888QdaxufphDeairqus codes; unclassified (1 source)20 weeks gestation of ; Translations: [20 weeks gestation of ]Onset: 69-35-2624QczacllePuirohah codes; unclassified (2 sources)Gestation period, 25 weeks; Translations: [25 weeks gestation of ]12-80-2432LiuupjbtJmlbtwcpkiuq (1 source)gHTNOnset: 05-17-2025 Past or Other Problems Problem ClassificationProblemDateDocumented DateEpisodic/ChronicCardiac dysrhythmias (8 sources)Palpitations; Translations: [Palpitations]Onset: 006943-59-3470 EpisodicNonspecific chest pain (3 sources)Chest pain, unspecified; Translations: [Chest pain]Onset: 11-03-2024 EpisodicOther female genital disorders (20 sources)Fallopian tube disorder; Translations: [Noninflammatory disorder of ovary, fallopian tube and broadligament, unspecified]Onset: 362029-49-7694 EpisodicUnclassified (2 sources)Patient encounter -97-6870Tirefymrautg (1 source)Onset: 648530-64-4062Bfbhtdjbskkz (1 source)Anxiety disorder affecting , pcwfmquzyk50-94-7967Szneyvi tract infections (3 sources)Acute cystitis; Translations: [Acute cystitis without hematuria] Onset: 801617-69-3145RwxnqixnOnmud infection (1 source)COVID-19 Results Test NameValueInterpretationReference RangeFacilityUrinalysis macro (dipstick) panel (U)on 66-77-8318Hehrrapcv, UANegativeNegative - 4(70) +++ mg/dLNOMS HealthcareBlood, UANegativeNegative [...] mg/dLNOMS HealthcareNOMS HealthcareUrinalysis macro (dipstick) panel (U)on 17-11-7665Hchacpohg, UA NegativeNegative - 4(70) +++ mg/dLNOMS HealthcareBlood, [...] mg/dLNOMS HealthcareNOMS HealthcareUrinalysis macro (dipstick) panel (U)on 98-64-8283Hmpjjtnyh, UANegativeNegative - 4(70) +++ mg/dL N[facility]S HealthcareBlood, UANegativeNegative - 50 Surjit/mcLNOMS HealthcareClarity, UA ClearNOMS HealthcareColor, UAYellowNOMS HealthcareGlucose, UANegativeNegative - 1999(110) ++++ mg/dLNOMS HealthcareInterpretation and review of laboratory resultsNormalNOMS HealthcareKetones, UANegativeNegative - 160(16) ++++ mg/dLNOMT HealthcareLeukocytes, UANegativeNegative - 500+++ Kaleigh/mcLNOMS HealthcareNitrite, UANegativeNegative - PositiveNOMS HealthcarepH, UA65 - 9NOMS HealthcareProtein, UANegativeNegative - 2000(20) ++++ mg/dLNOMS HealthcareSpec Grav, UA1.0251 - 1.03NOMS HealthcareUrobilinogen, UA0.20.2 - 12 mg/dLNOMS HealthcareNOMS HealthcareAFP, SERUM, OPEN SPINA BIFIDAon 94-76-8362TEM MOM0.85.[facility] AFP VALUE38.2 ng/mL.[facility] HospitalCOMMENT:Comment.[facility] HospitalComment on above:Gema Ortez, Ph.D., [facility] Director References: Available Upon Request. Multiples Of Median Cutoffs For AFP Elevations Kumar 2.5 Black 2.8 IDD 2.0 Twins 4.5 Abbreviation Definitions IDD - Insulin Dep Diabetes OSBR - Open Spina Bifida Risk For further inquiries contact [facility] at [phone]. This test was developed and its performance characteristics determined by [employer]. It has not been cleared or approved by the Food and Drug Administration. Performed at: [facility] [address], [place] [id number] Studio Operator: Jesus Saleh [facility], Phone: [phone] GEST. AGE ON COLLECTION DATE21.1. weeksNOMT HealthcareGESTAT. AGE BASED ONLMP. [facility] HospitalComment on above:Recalculations are not recommended when gestational dating by LMP and ultrasound are within 10 days. INSULIN DEP DIABETESNo.[facility] HealthcareINTERPRETATIONComment.[facility] Comment on above:Interpretation: Screen Negative This [...] Customer Services to discuss available options. The [place] [employer] [employer] recommends amniocentesis be offered to women age 35 and older. MATERNAL AGE AT EDD33.5. yrNOMT HealthcareMULTIPLE GESTATIONNo.[facility] Healthcare OSBR RISK 1 [id number].NOMS HealthcareRACECaucasian.[facility] HealthcareRESULTSReport. [facility] HealthcareTEST RESULTS:Negative.[facility] SvugnfrkeyJTVXVZ979. lbsNOMS HealthcareN N LMP [id number] 2 9 N 1 [address] White/ CLINISYNCNOMT HealthcareUnlisted Lab Teston 74-51-2413Zeqzm Free Cell Dnalow riskProCincinnati Children'S Hospital Medical Center SystemProMercer County Community HospitalB-TYPE NATRIURETIC PEPTIDEon 17-72-7640Ecqjnxorvkq peptide B (Bld) [Mass/Vol]46 pg/mLNormal<=100ProScci Hospital LimaComment on above:Performed By: #### BNP #### [facility] (TT) [address] [place] [address] VIRUrinalysis macro (dipstick) panel (U)on 46-00-0307Duqxtecbo, UANegativeNegative - 4(70) +++ mg/dLNOMT HealthcareBlood, UANegativeNegative - 50 Surjit/mcLNOMT HealthcareClarity, UAClearNOMT HealthcareColor, UAYellowNOMT HealthcareGlucose, UANegativeNegative - 2000(110) ++++ mg/dLSac-Osage Hospital Interpretation and review of laboratory resultsNormalNOMT HealthcareKetones, UA NegativeNegative - 160(16) ++++ mg/dLCEDAR CITY HOSPITAL HealthcareLeukocytes, UANegative Negative - 500+++ Kaleigh/mcLNOMT HealthcareNitrite, UANegativeNegative - Positive [facility] HealthcarepH, UA65 - 9NOMT HealthcareProtein, UANegativeNegative - 2000(20) ++++ mg/dLNOMT HealthcareSpec Grav, UA1.0151 - 1.03NOMT HealthcareUrobilinogen, UA1.00.2 - 12 mg/dLNORanken Jordan Pediatric Specialty Hospital HealthcareTBH TOTAL PROTEIN 24 HOUR URINEon 74-39-4873QEQTN PROTEIN URINE RANDOM<6.0NINF - 11.9 mg/dLSac-Osage Hospital TOTAL VOLUME 24 HOUR TGHHO2941aE/24hrNOMT HealthcareCLINISYNCNOMS HealthcareALL CBC WITH AUTO DIFFon 97-66-2698SEJHIBIDD ABSOLUTE JOPG3LKXI Healthcare Basophils/100 WBC (Bld)0.2 %0.2 - 2.0 %NOMSt. Joseph Medical CenterEosinophils/100 WBC (Bld) 2.9 %0.9 - 7.0 %[facility] HospitalErythrocyte distribution width (RBC) [Ratio]12.3 %11.0 - 15.0 %[facility] HospitalIMMATURE GRANULOCYTES ABS AUTO0.09HighNOPemiscot Memorial Health SystemsImmature granulocytes/100 WBC (Bld)0.7 %High0.0 - 0.5 %[facility] Interpretation and review of laboratory resultsAbnormalSac-[facility] Hospital LYMPHOCYTES ABSOLUTE KHEN1DLRFPemiscot Memorial Health SystemsLymphocytes/100 WBC (Bld)15.4 %Low20.5 - 60.0 %[facility]' HospitalH (RBC) [Entitic mass]31.3 pg26.7 - 34.0 pgHarry S. Truman Memorial Veterans' HospitalHC (RBC) [Mass/Vol]33.6 g/dL29.9 - 35.2 g/dLHarry S. Truman Memorial Veterans' HospitalV (RBC) [Entitic vol]93.2 fL81.0 - 99.0 fLSac-Osage HospitalMONOCYTES ABSOLUTE AUTO0.5NOPemiscot Memorial Health SystemsMonocytes/100 WBC (Bld)4.1 %1.7 - 12.0 %[facility] HospitalNEUTROPHILS ABSOLUTE AUTO9.9HighNOPemiscot Memorial Health SystemsNeutrophils/100 WBC (Bld)76.7 %High43.0 - 75.0 %[facility] HospitalPlatelet mean volume (Bld) [Entitic vol]10.2 fL9.5 - 13.5 fLSac-Osage HospitalTBH EO #0.4NOPemiscot Memorial Health SystemsTBH CCO984CZZWParkland Health Center RBC3.8 LowNOPemiscot Memorial Health SystemsTB DAU23ElctUKRISac-Osage HospitalCLINISYNCAPTTon 40-28-7004mTOA Coag (Bld) [Time]26.5 [facility] without diffon 04-17-2025 Platelets (Bld) [#/Vol]251 10*3/uLSelect Medical Specialty Hospital [facility] Mcv (Fl) By Automated Count93.2Pro[facility] Health SystemLaboratory - Hematology and Cell countson 69-02-7455Kfosggnflp (Bld) [Volume fraction]35.4 %[facility] Hemoglobin (Bld) [Mass/Vol]11.9 g/dLNOMT HealthcareNo Panel Informationon 42-31-2751ODKX HealthcareUrinalysis macro (dipstick) panel (U)on 04-11-2025 Bilirubin, UANegativeNegative - 4(70) +++ mg/dLNOMS HealthcareBlood, UANegative Negative - 50 Surjit/mcLNOMS HealthcareClarity, UAClearNOMS HealthcareColor, UA YellowNOMS HealthcareGlucose, UANegativeNegative - 2000(110) ++++ mg/dLNOMT HealthcareInterpretation and review of laboratory resultsNormalCEDAR CITY [facility]ITAL Healthcare Ketones, UANegativeNegative - 160(16) ++++ mg/dLNOMS HealthcareLeukocytes, UA NegativeNegative - 500+++ Kaleigh/mcLNOMT HealthcareNitrite, UANegativeNegative - PositiveNOMS HealthcarepH, UA65 - 9NOMS HealthcareProtein, UANegativeNegative - 2000(20) ++++ mg/dLNOMT HealthcareSpec Grav, UA1.0151 - 1.03N[facility] Healthcare Urobilinogen, UA1.00.2 - 12 mg/dLNOMT HealthcareNOMT HealthcareUrinalysis macro (dipstick) panel (U)on 75-87-3699Jhxymotzs, UANegativeNegative - 4(70) +++ mg/dL N[facility]S HealthcareBlood, UANegativeNegative - 50 Surjit/mcLNOMS HealthcareClarity, UA ClearNOMS HealthcareColor, UAYellowNOMS HealthcareGlucose, UANegativeNegative - 2000(110) ++++ mg/dLNOMT HealthcareInterpretation and review of laboratory resultsAbnormalNOMS HealthcareKetones, UANegativeNegative - 160(16) ++++ mg/dL NOMS HealthcareLeukocytes, UAPositiveNegative - 500+++ Kaliegh/mcLNOMS Healthcare Comment on above:2+Nitrite, UANegativeNegative - PositiveNOMS HealthcarepH, UA65 - 9NOMS HealthcareProtein, UANegativeNegative - 2000(20) ++++ mg/dLNOMS HealthcareSpec Grav, UA1.021 - 1.03NOMT HealthcareUrobilinogen, UA1.00.2 - 12 mg/dLSaint Joseph Hospital West HealthcareALL CBC WITH AUTO DIFFon 32-40-7099ZWEJLJPGY ABSOLUTE AUTO0.1NOMS HealthcareBasophils/100 WBC (Bld)0.5 %0.2 - 2.0 %NOMSt. Joseph Medical CenterEosinophils/100 WBC (Bld)4 %0.9 - 7.0 %[facility] HospitalErythrocyte distribution width (RBC) [Ratio]12.2 %11.0 - 15.0 %[facility] HospitalIMMATURE GRANULOCYTES ABS AUTO0.08HighSac-Osage HospitalImmature granulocytes/100 WBC (Bld) 0.6 %High0.0 - 0.5 %[facility]age HospitalInterpretation and review of laboratory resultsAbnormalSac-Osage HospitalLYMPHOCYTES ABSOLUTE AUTO2.6NOPemiscot Memorial Health Systems Lymphocytes/100 WBC (Bld)18.4 %Low20.5 - 60.0 %[facility] HospitalH (RBC) [Entitic mass]31.5 pg26.7 - 34.0 pgHarry S. Truman Memorial Veterans' HospitalHC (RBC) [Mass/Vol]34.1 g/dL29.9 - 35.2 g/dLHarry S. Truman Memorial Veterans' HospitalV (RBC) [Entitic vol]92.4 fL81.0 - 99.0 fLSac-Osage HospitalMONOCYTES ABSOLUTE AUTO0.6S[facility] HospitalMonocytes/100 WBC (Bld)4.3 % 1.7 - 12.0 %[facility] HospitalNEUTROPHILS ABSOLUTE AUTO10.1HighSac-Osage Hospital Neutrophils/100 WBC (Bld)72.2 %43.0 - 75.0 %[facility] HospitalPlatelet mean volume (Bld) [Entitic vol]10.2 fL9.5 - 13.5 fLSac-Osage HospitalTB EO #0.6[facility] TBH CDH053TMSLParkland Health Center RBC3.94LowCitizens Memorial Healthcare WBC13.9HighSac-Osage HospitalCLINISYNCCBC without diffon 35-72-4058Hezlvsehj (Bld) [#/Vol]261 10*3/uLKettering Health Washington TownshipRb Mcv (Fl) By Automated Count92.4[facility] TownshipDrug Screen, Urineon 95-40-4874Euamrbuqnpy/MethamphetamineNegative [facility] TownshipBarbituratesNegativeK[facility] BenzodiazepinesNegativeK[facility]tering Health Washington TownshipCocaine MetaboliteNegative [facility] TownshipMethadoneNegativeKettering Health Washington TownshipOpiatesNegative [facility] TownshipOxycodoneNegativeKettering Health Washington TownshipPhencyclidine NegativeKettering Health Washington TownshipThc Marijuana, UrineNegativeKettering Health Washington TownshipHBV surface Ag IA Qlon 55-88-5491Emfhxawie B Surface AntigenNegative [facility] TownshipHCV Ab IA Qlon 57-37-5834WMV Ab Ql (S)Non-Reactive [facility] TownshipHIV 1+2 Ab+HIV1 p24 Ag IA Qlon 78-26-6690IQJ 1&2 AB/AG Non-ReactiveKettering Health Washington TownshipHemoglobin A1con 80-08-4081GlX0w (Bld) [Mass fraction]5.1 %4.0 - 6.0 %[facility] TownshipLaboratory - Hematology and Cell countson 63-28-0825Ezbtvnociq (Bld) [Volume fraction]36.4 %[facility] Hemoglobin (Bld) [Mass/Vol]12.4 g/dLSac-Osage HospitalNo Panel Informationon 36-15-1196XNUD HealthcareRubella IGG immune statuson 58-54-7104Hniznzo immune IgGIMMUNEKettering Health Washington TownshipT. pallidum IgG+IgM IA Ql (S)Ordered By: Christina Bertrand on 82-16-0007KeeuadjeQxs-ReactiveKettering Health Washington TownshipType and screenon 53-64-0757Dvh/Rh(D)PositiveKettering Health Washington TownshipHCG ( test) Ql (U)on 27-62-6967Bfvwylkkpsoqwo and review of laboratory resultsAbnormThomas Jefferson University Hospital Preg Test, UrPositiveNegativeNOPemiscot Memorial Health SystemsNOMT HealthcareUS OB TRANSVAGINALon 61-85-4370KV OB TRANSVAGINALFINDINGS: A single intrauterine gestational sac [...] No LMP recorded.Urinalysis macro (dipstick) panel (U)on 14-12-7081Gudnmokpi, UA NegativeNegative - 4(70) +++ mg/dLNOMS HealthcareBlood, UANegativeNegative - 50 Surjit/[facility]ingham[facility] State HospitalNOMT HealthcareClarity, UAClearNOMS HealthcareColor, UAYellowNOMS HealthcareGlucose, UANegativeNegative - 2000(110) ++++ mg/dLNOMT Healthcare Interpretation and review of laboratory resultsNormalNOMS HealthcareKetones, UA NegativeNegative - 160(16) ++++ mg/dLNOMT HealthcareLeukocytes, UANegative Negative - 500+++ Kaleigh/mcLNOMT HealthcareNitrite, UANegativeNegative - Positive NOMS HealthcarepH, UA75 - 9NOMS HealthcareProtein, UANegativeNegative - 2000(20) ++++ mg/dLNOMT HealthcareSpec Grav, UA1.0051 - 1.03NOMS HealthcareUrobilinogen, UA0.20.2 - 12 mg/dLNOMS HealthcareNOMS HealthcareALL PROGESTERONEon 01-18-2025 PROGESTERONE8.7 ng/mL.[facility] HealthcareComment on above:Follicular phase 0.1 - 0.9 Luteal phase 1.8 - 23.9 Ovulation phase 0.1 - 12.0 First trimester 11.0 - 44.3 Second trimester 25.4 - 83.3 Third trimester 58.7 - 214.0 Postmenopausal 0.0 - 0.1 Performed at: [address] [id number] Studio Operator: Yobany Blount PhD, Phone: [phone] [facility] PhiladelphiaPATHOLOGY REQUEST FOR LAB CORPon 53-18-8341NDSGCLLKC REQUEST FOR LAB CORPNOMS HealthcareComment on above:See report. Scanned copy available in EMR.SKIN SPECIMENFIRLehigh Valley Hospital - MuhlenbergALL PROGESTERONEon 33-41-4794FBQJMOONWPTJ88.9 ng/mL.NOMS HealthcareComment on above:Follicular phase 0.1 - 0.9 Luteal phase 1.8 - 23.9 Ovulation phase 0.1 - 12.0 First trimester 11.0 - 44.3 Second trimester 25.4 - 83.3 Third trimester 58.7 - 214.0 Postmenopausal 0.0 - 0.1 Performed at: [address] [id number] Studio Operator: Yobany Blount PhD, Phone: [phone] [facility] PhiladelphiaPathology Request for Lab Corpon 01-28-1568Rzmyqlquc Request for Lab CorpNoFirstHealth Moore Regional Hospital - Richmond Physician GroupComment on above:Order Comment: SKIN SPECIMENResult Comment: See report. Scanned copy available in EMR. PERFORMED BY: [place] [address] PATHOLOGIST LOCOMOTIVE DRIVER ANAHI TRAN M.D.Performed By: #### PATH TO [facility] #### [place] [address] USAIGP,APTIMA HPV,AGE GDLNon 62-05-3142WZG GDLN ACOG TESTING Note.NOMS HealthcareComment on above:TESTS RESULT FLAG UNITS REF RANGE LAB Clinician Provided Cytology Information Source.............Cervix;Endocervix No. of containers..01 ThinPrep Vial Age Alberto FORREST Marjorie... 32 FLAG LEGEND: L-Low Normal,H-High Normal,LL-Alert Low,HH-Alert High <-Panic Low,>-Panic High,A-Abnormal,AA-Critical Abnormal Performed at: 01 =[address] [address] Vonnie Woodard MD, HPV APTIMANegativeNegativeNOMS HealthcareComment on above:This nucleic acid amplification test detects fourteen high- risk HPV types (16,18,31,33,35,39,45,51,52,56,58,59,66,68) without differentiation. Performed at: =[address] [id number] Studio Operator: Vonnie Woodard MD, Phone: [phone] Performed at: [address] [id number] Studio Operator: Vonnie Woodard MD, Phone: [phone] IGP, APTIMA HPV, RFX 16/18,45Note.NOMS HealthcareComment on above:TESTS RESULT FLAG UNITS REF RANGE LAB DIAGNOSIS: 02 NEGATIVE FOR INTRAEPITHELIAL LESION OR MALIGNANCY. Specimen adequacy: 02 Satisfactory for evaluation. Endocervical and/or squamous metaplastic cells (endocervical component) are present. Performed by: 02 Quiana Vyas, Business Division Chair (ASCP) . 02 Note: Note 02 [...] <-Panic Low,>-Panic High,A-Abnormal,AA-Critical Abnormal Performed at: [address] [address] Vonnie Woodard MD, BRUSH-SPATULA CERVIX ENDOCERVIX CLINISYNCNOPemiscot Memorial Health SystemsALL PROGESTERONEon 82-56-6116LGKWIDKNEICZ49.2 ng/mL.[facility] HealthcareComment on above:Follicular phase 0.1 - 0.9 Luteal phase 1.8 - 23.9 Ovulation phase 0.1 - 12.0 First trimester 11.0 - 44.3 Second trimester 25.4 - 83.3 Third trimester 58.7 - 214.0 Postmenopausal 0.0 - 0.1 Performed at: [facility]coAtl[facility] [address] [place], [place] [id number] Studio Operator: Yobany Blount PhD, Phone: [phone] CLINISYNCNOGeneral Leonard Wood Army [facility] AND AUTO DIFFon 96-00-1889COCFVEZQ BASOPHIL0.1 X10E9/LNormal0.0-0.2PMorrow County HospitalComment on above:Performed By: #### CBCGavin, CMP, 09547-1, 17667-7, THYR #### [facility] ([id number]) [address] [place] [address] 29096ICJGRODY NEUTROPHIL6.9 X10E9/LHigh1.5-6.6ProNorth Texas Medical CenterComment on above:Performed By: #### CBCA, [facility], , [address]-2, THYR #### [facility] ([id number]) [address] [place] [address] 59057Hlxccaaif/100 WBC (Bld)1.1 %NormalPomerene Hospital Comment on above:Performed By: #### CBCA, [facility], , 22971-6, THYR #### [facility] ([id number]) [address] [place] [address] 87022Vbjmwgfwkbf (Bld) [#/Vol]0.3 10*3/uLNormal0.0-0.4Pomerene HospitalComment on above:Performed By: #### CBCA, [facility], , 47598-1, THYR #### [facility] ([id number]) [address] [place] [address] 66664Embnfbwcesy/100 WBC (Bld)2.3 %NormalPomerene Hospital Comment on above:Performed By: #### CBCA, CMP, , 63529-3, THYR #### [facility] ([id number]) [address] [place] [address] 94066Xwsholsduzf distribution width (RBC) [Ratio]12.6 %Normal 11.5-15.0Pomerene HospitalComment on above:Performed By: #### CBCA, CMP, , 05290-1, THYR #### [facility] ([id number]) [address] [place] [address] 68164Kmbazzpmwy (Bld) [Volume fraction]40.4 %Lrrxjr70-49VwdNljqqmNorth Texas Medical CenterComment on above:Performed By: #### KARSON, CMP, 85424-9, 23826-3, THYR #### [facility] ([id number]) [address] [place] [address] 05347Kypjtntbrb (Bld) [Mass/Vol]13.7 g/zHJzueng27.7-15.5PMorrow County HospitalComment on above:Performed By: #### KARSON, CMP, 02700-1, 25548-2, THYR #### [facility] ([id number]) [address] [place] [address] 57786Leuusiovusq (Bld) [#/Vol]3.6 10*3/uLHigh1.0-3.5PMorrow County HospitalComment on above:Performed By: #### KARSON, CMP, 12467-5, 78386-3, THYR #### [facility] ([id number]) [address] [place] [address] 22658Tldrwdpxwho/100 WBC (Bld)31.6 %NormalPomerene Hospital Comment on above:Performed By: #### CBCGavin, CMP, 01892-0, 11698-0, THYR #### [facility] ([id number]) [address] [place] [address] 23421NCQ (RBC) [Entitic mass]30.9 vbNwcihz39-13GqzVzmaocNorth Texas Medical CenterComment on above:Performed By: #### CBCA, CMP, 25992-7, 18760-7, THYR #### [facility] ([id number]) [address] [place] [address] 44218MKIP (RBC) [Mass/Vol]34.0 g/bOMophyl53-17BkyCayrwjPomerene HospitalComment on above:Performed By: #### CBCA, CMP, 61458-9, 41925-5, THYR #### [facility] ([id number]) [address] [place] [address] 70833RNX (RBC) [Entitic vol]91 rONoqmwi96-870KyhWinwnp [facility]remont HospitalComment on above:Performed By: #### CBCA, CMP, 40035-5, 34318-3, THYR #### [facility] ([id number]) [address] [place] [address] 39575Cfyszylnn (Bld) [#/Vol]0.6 10*3/uLNormal0-0.9Pomerene HospitalComment on above:Performed By: #### CBCA, CMP, 45475-3, 16864-1, THYR #### [facility] ([id number]) [address] [place] [address] 21481Ljfsbquki/100 WBC (Bld)5.4 %[facility] Comment on above:Performed By: #### CBCA, CMP, 52331-6, 38363-1, THYR #### [facility] ([id number]) [address] [place] [address] 08111Aotdkkxowxe/100 WBC (Bld)59.6 %[facility] Comment on above:Performed By: #### CBCA, CMP, 91626-9, 05698-1, THYR #### [facility] ([id number]) [address] [place] [address] 83992Nzgdsezo mean volume (Bld) [Entitic vol]7.9 fLNormal7-12 ProMKaiser Foundation Hospital SunsetComment on above:Performed By: #### CBCA, CMP, 30018- 9, 15790-8, THYR #### [facility] ([id number]) [address] [place] [address] 53933Uyiggecwr (Bld) [#/Vol]346 10*3/zVWyuexf762-665LqaBgrzyw [facility]ont HospitalComment on above:Performed By: #### KARSON, CMP, 53361-5, 77056-9, THYR #### [facility] ([id number]) [address] [place] [address] 45687UIV COUNT4.44 X10E12/LNormal3.80-5.20[facility] Comment on above:Performed By: #### KARSON, CMP, 74873-7, 99141-8, THYR #### [facility] ([id number]) [address] [place] [address] 48717SBJ (Bld) [#/Vol]11.5 10*3/uLHigh4.0-11.0Pomerene HospitalComment on above:Performed By: #### KARSON, CMP, 22123-3, 14543-9, THYR #### [facility] ([id number]) [address] [place] [address] 11594BSEKTYHLZDZKT METABOLIC PANELon 42-61-2547Kbfyovh [Mass/Vol]4.0 g/dLNormal3.2-5.3PMorrow County HospitalComment on above:Performed By: #### KARSON, CMP, 24761-6, 63961-1, THYR #### [facility] ([id number]) [address] [place] [address] 46551LQG [Catalytic activity/Vol]50 U/JMfjvno86-519ZjwShuwpuNorth Texas Medical CenterComment on above:Performed By: #### MATTHEWA, CMP, 61057-7, 80463-7, THYR #### [facility] ([id number]) [address] [place] [address] 65768MIP [Catalytic activity/Vol]19 U/LNormal0-31PMorrow County HospitalComment on above:Performed By: #### LUKAS TY, 00792-7, 57546-5, THYR #### [facility] ([id number]) [address] [place] [address] 71200Dbakt gap [Moles/Vol]11 mmol/LNormal5-15ProNorth Texas Medical CenterComment on above:Performed By: #### KARSON, LUKAS, 71435-9, 71502-9, THYR #### [facility] ([id number]) [address] [place] [address] 61091WQW [Catalytic activity/Vol]18 U/LNormal0-41ProNorth Texas Medical CenterComment on above:Performed By: #### LUKAS TY, 11919-0, 85014-8, THYR #### [facility] ([id number]) [address] [place] [address] 20709Czzxkrhpt [Mass/Vol]0.4 mg/dLNormal0.3-1.2PMorrow County HospitalComment on above:Performed By: #### LUKAS TY, 63360-3, 12073-2, THYR #### [facility] ([id number]) [address] [place] [address] 24761Evrggwf [Mass/Vol]9.4 mg/dLNormal8.5-10.5PMorrow County HospitalComment on above:Performed By: #### KARSON, LUKAS, 58851-1, 56837-2, THYR #### [facility] ([id number]) [address] [place] [address] 25365Ajhmcjpy [Moles/Vol]106 mmol/ZStlhdl59-300AgcUfljniNorth Texas Medical CenterComment on above:Performed By: #### LUKAS TY, 56575-4, 41453-0, THYR #### [facility] ([id number]) [address] [place] [address] 48996IB7 [Moles/Vol]23 mmol/VVshntr54-94LroMypjidMorrow County Hospital Comment on above:Performed By: #### LUKAS TY, 15027-9, 77068-1, THYR #### [facility] ([id number]) [address] [place] [address] 81094Cccljubtmt [Mass/Vol]0.76 mg/dLNormal0.40-1.00Pomerene HospitalComment on above:Result Comment: METHOD TRACEABLE TO IDMS STANDARD Performed By: #### LUKAS TY, 55990-5, 48032-1, THYR #### [facility] ([id number]) [address] [place] [address] 86859mRKL (CKD-EPI) NON-RACE DEPENDENT>90Normal>59ProNorth Texas Medical CenterComment on above:Result Comment: Reported eGFR is based on the CKD-EPI 2020 equation that does not use a race coefficient.Performed By: #### LUKAS TY, , 45975-9, THYR #### [facility] ([id number]) [address] [place] [address] 83281Yvslocu [Mass/Vol]114 mg/rDZfht20-18FrqTbtbtiPomerene Hospital Comment on above:Performed By: #### LUKAS TY, , 00569-4, THYR #### [facility] ([id number]) [address] [place] [address] 58965Tfnhxonpg [Moles/Vol]4.1 mmol/LNormal3.5-5.0Pomerene HospitalComment on above:Performed By: #### LUKAS TY, 88419-6, 96114-5, THYR #### [facility] ([id number]) [address] [place] [address] 87037Bbrufxp [Mass/Vol]7.3 g/dLNormal6.0-8.0Pomerene HospitalComment on above:Performed By: #### CBCGavin, CMP, 99626-6, 89407-5, THYR #### [facility] ([id number]) [address] [place] [address] 52998Tsfztu [Moles/Vol]140 mmol/KApaqyq723-818JtaQykdjp [facility]remont HospitalComment on above:Performed By: #### KARSON, LUKAS, 72135-2, 65027-7, THYR #### [facility] ([id number]) [address] [place] [address] 72489Vkwv nitrogen [Mass/Vol]13 mg/dLNormal5-23Pomerene HospitalComment on above:Performed By: #### KARSON, LUKAS, 16204-8, 30513-5, THYR #### [facility] ([id number]) [address] [place] [address] 97691Xaxgxb D-dimer DDU (PPP) [Mass/Vol]on 11-04-2024D DIMER<150 Normal<255Pomerene HospitalCombrighton hospital on above:Result Comment: Results <255 ng/mL DDU: The presence of a VTE can safely be excluded with a negative D-Dimer result and Wells score. A negative result doesn't exclude the possibility of DIC. The test be repeated along with other diagnostic tests if the patient's symptoms persist or worsen. [email or web address] By: #### CBCA, CMP, 14225-2, 59142-6, THYR #### [facility] ([id number]) [address] [place] [address] 54519XMC ( test) Ql (U)on 29-18-2663Dycj HCG ( test) Ql (U)NegativeNormalNEGProNorth Texas Medical CenterComment on above: Performed By: #### 2106-3 #### [facility] ([id number]) [address] [place] [address], [place] [address]WLTHVJHIMyk 53-75-0632Uijewnkjl [Mass/Vol]2.3 mg/dLNormal 1.8-2.6ProNorth Texas Medical CenterComment on above:Performed By: #### LUKAS TY, 36507-5, 61429-0, THYR #### [facility] ([id number]) [address] [place] [address], [place] [address]UXOQKXO PROFILEon 37-69-0545Qvzx T4 [Mass/Vol]0.88 ng/dLNormal 0.61-1.60ProNorth Texas Medical CenterComment on above:Performed By: #### LUKAS TY, 59384-3, 69069-8, THYR #### [facility] ([id number]) [address] [place] [address], [place] [address]GMC6.78 uIU/mLNormal0.49-4.67ProNorth Texas Medical CenterComment on above:Performed By: #### LUKAS TY, 02903-4, 28346-9, THYR #### [facility] ([id number]) [address] [place] [address] [place] [address]UYA MACROSCOPIC NURon 87-59-5890GPXMNCRZI NURNegativeNormalNEG ProMKaiser Foundation Hospital SunsetComment on above:Performed By: #### NUM #### [facility] ([id number]) [address] [place] [address], [place] [address]BFMTY/HGB NURTraceAbnormalNEGPomerene HospitalComment on above:Performed By: #### NUM #### [facility] ([id number]) [address] [place] [address], [place] [address]IWTWSUN NURNegativeNormalNEGPomerene HospitalComment on above:Performed By: #### NUM #### [facility] ([id number]) [address] [place] [address] 00370MGTAYVG NURNegativeNormalNEGPomerene HospitalComment on above:Performed By: #### NUM #### [facility] ([id number]) [address] [place] [address] 34791MPJSDVXRP ESTERASE NURSmallAbnormalNEGPomerene HospitalComment on above:Performed By: #### NUM #### [facility] ([id number]) [address] [place] [address] 50067FFZCNJO NURNegativeNormalNEGPomerene HospitalComment on above:Performed By: #### NUM #### [facility] ([id number]) [address] [place] [address] 72632RF NUR6.6Ylqjto9.0-8.5PMorrow County HospitalComment on above:Performed By: #### NUM #### [facility] ([id number]) [address] [place] [address] 85249UADWLNH NURNegativeNormalNEGPomerene HospitalComment on above:Performed By: #### NUM #### [facility] ([id number]) [address] [place] [address] [place] [address]QVZBUKPV GRAVITY NUR1.315Huulzc2.003-1.035ProNorth Texas Medical CenterComment on above:Performed By: #### NUM #### [facility] ([id number]) [address] [place] [address] 85575CHFGYPLZNVPS NUR0.2 eu/dLNormal<1.1PMorrow County Hospital Comment on above:Performed By: #### NUM #### [facility] ([id number]) [address] [place] [address] 14096NC CHEST 1 VWon 41-93-8478QJ CHEST 1 VWXR CHEST 1 VW History: Palpitations Exam/Technique: Portable upright AP chest Comparison: 11/12/2022 Findings: There is no active pulmonary or pleural disease displayed. Cardiac and mediastinal contours appear within normal limits on this AP projection. IMPRESSION: No evidence of active pulmonary disease. Finalized by Tres Giron MD on 11/04/2024 1:02 AMNormalJ.W. Ruby Memorial Hospitalca [facility] PROGESTERONEon 96-35-0945KKMPPCSXMJTP26.8 ng/mL.[facility] Comment on above:Follicular phase 0.1 - 0.9 Luteal phase 1.8 - 23.9 Ovulation phase 0.1 - 12.0 First trimester 11.0 - 44.3 Second trimester 25.4 - 83.3 Third trimester 58.7 - 214.0 Postmenopausal 0.0 - 0.1 Performed at: [facility] [address] [id number] Studio Operator: Yobany Blount PhD, Phone: [phone] [facility]ENTERIglu.comSaint Francis Medical Center PROGESTERONEon 73-70-0322HNWNORIRBZOB44.3 ng/mL.[facility] HealthcareComment on above:Follicular phase 0.1 - 0.9 Luteal phase 1.8 - 23.9 Ovulation phase 0.1 - 12.0 First trimester 11.0 - 44.3 Second trimester 25.4 - 83.3 Third trimester 58.7 - 214.0 Postmenopausal 0.0 - 0.1 Performed at: [facility] [address] [id number] Studio Operator: Yobany Blount PhD, Phone: [phone] [facility] PROGESTERONEon 77-18-0220QYHCASOKREDT1.5 ng/mL.[facility] HealthcareComment on above:Follicular phase 0.1 - 0.9 Luteal phase 1.8 - 23.9 Ovulation phase 0.1 - 12.0 First trimester 11.0 - 44.3 Second trimester 25.4 - 83.3 Third trimester 58.7 - 214.0 Postmenopausal 0.0 - 0.1 Performed at: [facility] [address] [id number] Studio Operator: Yobany Blount PhD, Phone: [phone] [facility]ENTERAehr Test SystemsMa[facility], [place] PROGESTERONEon [id number] ng/mL.[facility] HealthcareComment on above:Follicular phase 0.1 - 0.9 Luteal phase 1.8 - 23.9 Ovulation phase 0.1 - 12.0 First trimester 11.0 - 44.3 Second trimester 25.4 - 83.3 Third trimester 58.7 - 214.0 Postmenopausal 0.0 - 0.1 Performed at: [facility] [address] [id number] Studio Operator: Yobany Bolunt PhD, Phone: [phone] [facility] CBC WITH AUTO DIFFon [id number] ABSOLUTE AUTO0.1N[facility] HealthcareBasophils/100 WBC (Bld)0.6 %0.2 - 2.0 %[facility] Eosinophils/100 WBC (Bld)2.8 %0.9 - 7.0 %NOM HealthcareErythrocyte distribution width (RBC) [Ratio]12.1 %11.0 - 15.0 %[facility] HealthcareHematocrit (Bld) [Volume fraction]40.6 %36.0 - 48.0 %[facility] HospitalHemoglobin (Bld) [Mass/Vol]13.5 g/dL 12.0 - 16.0 g/dLSac-Osage HospitalIMMATURE GRANULOCYTES ABS AUTO0.02[facility]OMS [facility] Immature granulocytes/100 WBC (Bld)0.3 %0.0 - 0.5 %NOMSt. Joseph Medical CenterLYMPHOCYTES ABSOLUTE AUTO1.8NOMS HealthcareLymphocytes/100 WBC (Bld)23.0 %20.5 - 60.0 %[facility] HospitalH (RBC) [Entitic mass]30.6 pg26.7 - 34.0 pgNOFreeman Cancer InstituteHC (RBC) [Mass/Vol]33.3 g/dL29.9 - 35.2 g/dLSac-Osage HospitalMCV (RBC) [Entitic vol]92.1 fL 81.0 - 99.0 fLNOPemiscot Memorial Health SystemsMONOCYTES ABSOLUTE AUTO0.5NOMS [facility] Monocytes/100 WBC (Bld)6.6 %1.7 - 12.0 %NOM HealthcareNEUTROPHILS ABSOLUTE AUTO 5.3NOMS HealthcareNeutrophils/100 WBC (Bld)66.7 %43.0 - 75.0 %[facility] Platelet mean volume (Bld) [Entitic vol]9.8 fL9.5 - 13.5 fLNOMS [facility] EO #0.2[facility] SystemTBH [id number] [facility] RBC4.41[facility] WBC8.0 NOMS HealthcareCLINISYNCNOMS HealthcareUS PELVIS W/ TRANSVAGINALon [id number], [place] [id number] Ultrasound Report Signed Patient: ELLEN RAMIRES MR#: [id number] : 1990 Acct:[id number] Age/Sex: 34 / F ADM Date: 04/24/24 Loc: US Attending Dr: Caesar Broderick D.O. Ordering Physician: Caesar Broderick D.O. Date of Service: 04/24/24 Procedure(s): US pelvis w/ transvaginal Accession Number(s): [id number] cc: Caesar Broderick D.O.; Sabiha Aviles [place] [address] Patient Name: ELLEN RAMIRES MRN: [id number] date: 1990 Sex: F Assigned Patient Location: [place] Current Patient Location: Accession/Order Number: [id number] Exam Date: 04/24/2024 14:00 Report Date: 04/25/2024 [...] Dean M.D. Signed By: 04/25/2437 DD/ TD/TT: Powerhouse Operator:TBHRadiology, Radiologist, - 04/25/2024 [place] [address] Ultrasound Report Signed Patient: ELLEN RAMIRES MR#: [id number] : 1990 Acct:[id number] Age/Sex: 34 / F ADM Date: 04/24/24 Loc: US Attending Dr: Caesar Broderick D.O. Ordering Physician: Caesar Broderick D.O. Date of Service: 04/24/24 Procedure(s): US pelvis w/ transvaginal Accession Number(s): [id number] cc: Caesar Broderick D.O.; Sabiha Aviles SHINGLE CARRIER [facility] [place] [id number] Patient Name: ELLEN RAMIRES MRN: [id number] date: 1990 Sex: F Assigned Patient Location: Current Patient Location: Accession/Order Number: [id number] Exam Date: 04/24/2024 14:00 Report Date: 04/25/2024 [...] M.D. Signed By: 04/25/2437 DD/ 3 TD/TT: Powerhouse Operator: [facility] HospitalRadiology Study observation (narrative)[facility] HospitalUS PELVIS W/ TRANSVAGINALOrdered By: Radiologist Radiology on 56-83-1879XMYMSac-Osage Hospital Work Phone: aLL CBC WITH AUTO DIFFon 47-57-4711PGTQUMMNH ABSOLUTE AUTO0.1NOMS HealthcareBasophils/100 WBC (Bld)0.5 %0.2 - 2.0 %[facility] Eosinophils/100 WBC (Bld)2.8 %0.9 - 7.0 %[facility] HospitalErythrocyte distribution width (RBC) [Ratio]12.0 %11.0 - 15.0 %[facility] HospitalHematocrit (Bld) [Volume fraction]39.7 %36.0 - 48.0 %[facility] HospitalHemoglobin (Bld) [Mass/Vol]13.4 g/dL 12.0 - 16.0 g/dLSac-Osage HospitalIMMATURE GRANULOCYTES ABS AUTO0.03NOPemiscot [facility] Immature granulocytes/100 WBC (Bld)0.3 %0.0 - 0.5 %[facility] HospitalInterpretation and review of laboratory resultsAbnormalNOPemiscot Memorial Health SystemsLYMPHOCYTES ABSOLUTE AUTO2.9NOMS [facility] SystemLymphocytes/100 WBC (Bld)24.4 %20.5 - 60.0 %[facility] HospitalH (RBC) [Entitic mass]30.7 pg26.7 - 34.0 pgHarry S. Truman Memorial Veterans' HospitalHC (RBC) [Mass/Vol]33.8 g/dL29.9 - 35.2 g/dLHarry S. Truman Memorial Veterans' HospitalV (RBC) [Entitic vol]91.1 fL 81.0 - 99.0 fLCEDAR CITY HOSPITAL HealthcareMONOCYTES ABSOLUTE AUTO0.6[facility] Monocytes/100 WBC (Bld)5.2 %1.7 - 12.0 %[facility] HealthcareNEUTROPHILS ABSOLUTE AUTO 8.0HighNOMT HealthcareNeutrophils/100 WBC (Bld)66.8 %43.0 - 75.0 %[facility] HealthcarePlatelet mean volume (Bld) [Entitic vol]10.1 fL9.5 - 13.5 fLSac-Osage HospitalTBH EO #0.3NOMS HealthcareTB [id number] [facility] SystemTB RBC4.36NOMS [facility] SystemTBH WBC12.0HighNOMT HealthcareCLINISYNCNOMS HealthcarePOCT EKGOrdered By: Sheyla Powell on 68-39-4326MxvKvrlhlMcCullough-Hyde Memorial HospitalNo Panel Information Ordered By: Pinky Singh on 94-96-8336Swvri Strep (POC)[facility] AdministrationCytology Cervical or vaginal smear or scraping studyon 11-19-2022 [facility] HealthcareCOVID/FLU/RSV RT-PCRon 10-96-2122MYVO-CoV-2 (COVID-19) RNA PEACE+probe Ql (Unsp spec)PositiveNort [facility] Other COVID/FLU/RSV RT-PCRNegativeNort Express Med Pharmacy Services Other Vital Signs Date TimeVital SignValuePerforming EkivgjlufTphhckzm75-88-0344 13:42-0500Body mass index (BMI) [Ratio]43.33 kg/y8Mwthc Davie DO Work Phone: [facility] HospitalHkeocezrfu18-82-7202 13:42-0500Body iginyb149.28 kgCorey Davie DO Work Phone: NOPemiscot Memorial Health SystemsCdwivjdphg65-50-1154 13:42-0500Diastolic blood ybtmymjz18 mm[Hg]Caesar Davie DO Work Phone: [phone] [place], [place] [address]Ctfjztmnpq15-06-2416 13:42-0500Systolic blood toalihun081 mm[Hg]Caesar Davie DO Work Phone: 1(419)[address] [place], [place] 9239410-15-2025 09:03-0400Diastolic blood mm[Hg]Rody Uyen SHINGLE CARRIER Work Phone: 1(419)[facility] [place], [place] [address]Xxypiyuups26-21-8673 09:03-0400Systolic blood pmilgdor218 mm[Hg]Rody Uyen SHINGLE CARRIER Work Phone: 1(419)[address] [place] [address]-15-2025 09:02-0400Body mass index (BMI) [Ratio]42.99 kg/q4Kdhannqm Uyen SHINGLE CARRIER Work Phone: 1(049)[address] [place], [place] 9239410-15-2025 09:02-0400Body tdptde269.25 kgKristina Uyen SHINGLE CARRIER Work Phone: 1(419)[address] [place], [place] 9239410-09-2025 16:31-0400Body mass index (BMI) [Ratio]43.49 kg/s2Mwqmtket Uyen SHINGLE CARRIER Work Phone: 1(045)[address] [place], [place] 9239410-09-2025 16:31-0400Body .73 kgKristina Uyen SHINGLE CARRIER Work Phone: 1(597)[facility] [place], [place] [address]Xxnluyensw67-79-3471 16:31-0400Diastolic blood ccfomsta96 mm[Hg]Rody Uyen SHINGLE CARRIER Work Phone: 1(419)[address] [place], [place] 9239410-09-2025 16:31-0400Systolic blood mm[Hg]Rody Uyen SHINGLE CARRIER Work Phone: 1(338)[address] [place], [place] 923[address]10-02-2025 15:07-0400Body mass index (BMI) [Ratio]43.03 kg/w4Vfltlciu Uyen SHINGLE CARRIER Work Phone: 1(419)[address] [place], [place] 9239410-02-2025 15:07-0400Body mlimww080.37 kgKristina Uyen SHINGLE CARRIER Work Phone: 1(444)[address] [place], [place] 923[address]10-02-2025 15:07-0400Diastolic blood cmowihkh69 mm[Hg]Rody Qiu SHINGLE CARRIER Work Phone: 1(888)[address] [place], [place] 923[address]10-02-2025 15:07-0400Systolic blood cdypomim102 mm[Hg]Rody Qiu SHINGLE CARRIER Work Phone: 1(419)[address] [place], [place] 9239409-26-2025 07:51-0400Body xsnogh024.7 cmYordy Cruz MD Work Phone: 1(419)[address] [place], [place] 6412009-26-2025 07:51-0400Body mass index (BMI) [Ratio]42.96 kg/m2Yordy Cruz MD Work Phone: 1(419)[address] [place], [place] 6412009-26-2025 07:51-0400Body ioztus350.14 kgYordy Cruz MD Work Phone: 1(419)[address] [place], [place] 6412009-26-2025 07:51-0400Diastolic blood afpixpod32 mm[Hg]Yordy Cruz MD Work Phone: 1(419)[address] [place], [place] 6412009-26-2025 07:51-0400Heart rate 87 /Glenna Cruz MD Work Phone: 1(419)[address] [place], [place] 6412009-26-2025 07:51-0400Systolic blood ujxnusbn572 mm[Hg]Yordy Cruz MD Work Phone: 1(822)[address] [place], [place] 6412009-04-2025 11:30-0400Body mass index (BMI) [Ratio]42.88 kg/h8Nvqzj Davie DO Work Phone: 1(415)[facility] [place], [place] [address]Tlfewufolw23-33-9029 11:30-0400Body fkptvy676.91 kgCorey Davie DO Work Phone: 1(072)[address] [place], [place] 9239409-04-2025 11:30-0400Diastolic blood yxeilqwl24 mm[Hg]Caesar Davie DO Work Phone: 1(537)[address] [place], [place] 9239409-04-2025 11:30-0400Systolic blood vwnaaztm283 mm[Hg]Caesar Davie DO Work Phone: 1(560)[address] [place], [place] 9239408-21-2025 11:00-0400Body mass index (BMI) [Ratio]42.63 kg/h7Ahlaf Davie DO Work Phone: 1(959)901-[address] [place], [place] [address]Dgneapglal22-81-0586 11:00-0400Body qwislx017.19 kgCorey Davie DO Work Phone: 1(674)397-[address] [place], [place] [address]Nmimoqzsvx91-10-2326 11:00-0400Diastolic blood exoeibbj30 mm[Hg]Caesar Davie DO Work Phone: 1(970)620-[address] [place], [place] [address]Sptuuawula32-36-9718 11:00-0400Systolic blood kkqhipvq766 mm[Hg]Caesar Davie DO Work Phone: 1(011)472-[address] [place], [place] [address]Cmlenksvgx90-73-1563 11:42-0400Body mass index (BMI) [Ratio]42.29 kg/d5Bybsy Davie DO Work Phone: 1(638)970-[address] [place], [place] [address]Faskdcqvph21-02-1186 11:42-0400Body myjdol014.15 kgCorey Davie DO Work Phone: 1(389)629-[address] [place], [place] [address]Gnzzomdmap56-95-9712 11:42-0400Diastolic blood mm[Hg]Caesar Davie DO Work Phone: 1(350)177-[address] [place], [place] [address]Nuseyxbbea75-56-5127 11:42-0400Systolic blood lmzxnjuf244 mm[Hg]Caesar Davie DO Work Phone: 1(232)353-[address] [place], [place] [address]Rpsyxidcal83-25-1679 10:03-0400Body mass index (BMI) [Ratio]41.66 kg/i1KttmgSt. John's [facility]07-11-2025 10:03-0400Body weight 124.29 kgSt. [facility]07-11-2025 10:03-0400Diastolic blood mm[Hg][facility]07-11-2025 10:03-0400Systolic blood sluvzzba361 mm[Hg][facility]05-15-2025 10:52-0400Body ukiiwr451.7 Gilmer Lopez MD Work Phone: [facility]05-15-2025 10:52-0400 Body mass index (BMI) [Ratio]40.84 kg/z8YikrftRobbie Lopez MD Work Phone: 1(216)[address] [place], [place] 5463205-15-2025 10:52-0400 Body vehxapljgmu67.81 [degF]Robbie Lopez MD Work Phone: 1(216)[address] [place], [place] 5463205-15-2025 10:52-0400 Body .84 kgRobbie Lopez MD Work Phone: 1(216)[address] [place], [place] 5463205-15-2025 10:52-0400 Diastolic blood axobfccz55 mm[Hg]Robbie Lopez MD Work Phone: 1(216)[address] [place], [place] 5463205-15-2025 10:52-0400 Heart rate73 /minRobbie Lopez MD Work Phone: 1(216)[address] [place], [place] 5463205-15-2025 10:52-0400 Systolic blood raimksal415 mm[Hg]Robbie Lopez MD Work Phone: 1(216)[address] [place], [place] 5463204-29-2025 13:38-0400 Body mass index (BMI) [Ratio]40.35 kg/g3Yzrqs Davie DO Work Phone: 1(904)835-[address] [place], [place] [address]Uydiqahijd59-57-1560 13:38-0400Body jyqqjy303.39 kgCorey Davie DO Work Phone: 1(609)371-[address] [place], [place] [address]Cjmxolsfqz18-10-1528 13:38-0400Diastolic blood bawqquzl51 mm[Hg]Caesar Davie DO Work Phone: 1(776)537-[address] [place], [place] [address]Kwpwqorsoz41-40-9912 13:38-0400Systolic blood ldfmcjun413 mm[Hg]Caesar Davie DO Work Phone: 1(820)282-[address] [place], [place] [address]Zmzobytcsz55-09-8570 14:36-0400Body mass index (BMI) [Ratio]40.75 kg/j5Goasy Davie DO Work Phone: 1(953)119-[address] [place], [place] [address]Yyroeoarpp61-22-3550 14:36-0400Body .56 kgCorey Davie DO Work Phone: 1(715)797-[address] [place] [address]-21-2025 14:36-0400Diastolic blood qoaoegmq24 mm[Hg]Caesar Davie DO Work Phone: 1(368)367-[address] [place], [place] [address]Xsczwyjykf42-43-3178 14:36-0400Systolic blood rsqdezdp103 mm[Hg]Caesar Davie DO Work Phone: 1(641)[facility] [place], [place] [address]Sjokewobmk25-19-2505 14:03-0400Diastolic blood ahbguazi63 mm[Hg]Caesar Davie DO Work Phone: 1(357)[facility] [place], [place] [address]Mnndgroipi15-78-4644 14:03-0400Systolic blood dbxkhhbo006 mm[Hg]Caesar Davie DO Work Phone: 1(305)[facility] [place], [place] [address]Tfwucaknhz30-43-1485 13:12-0500Body mass index (BMI) [Ratio]40.01 kg/a9Crmaa Davie DO Work Phone: 1(444)[facility] [place], [place] [address]Giofgfgtrd19-08-4428 13:12-0500Body jkapju941.35 kgCorey Davie DO Work Phone: 1(026)[facility] [place], [place] [address]Tkakzpeteh06-98-7285 13:12-0500Diastolic blood mm[Hg]Caesar Davie DO Work Phone: 1(642)[facility] [place], [place] [address]Yvxtovjomk72-85-8138 13:12-0500Systolic blood sfvnabpy669 mm[Hg]Caesar Davie DO Work Phone: 1(696)[facility] [place], [place] [address]Slluelzkrp58-80-0543 14:39-0400Body dmeidl509.7 cmCorey Davie DO Work Phone: 1(246)[facility] [place], [place] [address]Zusqyadgso84-45-5830 14:39-0400Body mass index (BMI) [Ratio]39.53 kg/w9Psfhw Davie DO Work Phone: 1(174)[facility] [place], [place] [address]Yssbtrxzqw14-35-9228 14:39-0400Body tebtzy723.94 kgCorey Davie DO Work Phone: 1(459)[facility] [place], [place] [address]Khngitgarw63-22-2989 14:39-0400Diastolic blood mm[Hg]Caesar Davie DO Work Phone: 1(110)[address] [place], [place] 923[address]10-21-2024 14:39-0400Systolic blood pwcxngti799 mm[Hg]Caesar Davie DO Work Phone: [facility] HospitalJpbatamgrb80-88-1487 11:39-0400Body clloyk201.84 kgCorey Davie DO Work Phone: [facility] HospitalGfhmmadvpo17-30-0671 11:39-0400Diastolic blood mm[Hg]Caesar Davie DO Work Phone: [facility] HospitalCchprlprzb46-70-2158 11:39-0400Systolic blood qsaxlgiw989 mm[Hg]Caesar Davie DO Work Phone: 1(050)132-[address] [place], [place] [address]Agncmxsvuy99-47-7397 09:36-0400Body apzadp124.57 kgCorey Davie DO Work Phone: [facility] HospitalOtlykzsyki34-91-7409 09:36-0400Diastolic blood abtomfvu30 mm[Hg]Caesar Davie DO Work Phone: 1(242)783-[address] [place], [place] [address]Hknzasekja59-65-3748 09:36-0400Systolic blood xazhaylj374 mm[Hg]Caesar Davie DO Work Phone: 1(510)425-[address] [place], [place] [address]Xwlmpjwyal35-45-9084 10:50-0400Body wynoro827.7 Ji Fraire MD Work Phone: [facility]07-23-2024 10:50-0400Body mass index (BMI) [Ratio]40.66 kg/b1IqvmdvJames Fraire MD Work Phone: 1(646)612-[address] [place], [place] 4702307-23-2024 10:50-0400Body uahuxk156.29 kgJames Fraire MD Work Phone: [facility]07-23-2024 10:50-0400Diastolic blood mm[Hg]James Fraire MD Work Phone: [facility]07-23-2024 10:50-0400Heart rate 83 /minJames Fraire MD Work Phone: [facility]07-23-2024 10:50-0693GzO7% (BldA) [Mass fraction]98 %James Fraire MD Work Phone: [facility]07-23-2024 10:50-0400Systolic blood gofazmom239 mm[Hg]James Fraire MD Work Phone: [facility]04-04-2024 12:26-0400Body nsdukk885.72 cmVeterans Health Administration04-04-2024 12:26-0400Body mass index (BMI) [Ratio]42.6 kg/a1IomphjdikVeterans Health Administration04-04-2024 12:26-0400Body xstllsvxjij11.3 [degF][facility]04-04-2024 12:26-0400Body tynblh623.11 kgVeterans Health Administration04-04-2024 12:26-0400Diastolic blood mm[Hg][facility] 11-24-2023 12:26-0400Heart rate75 /[facility] 11-24-2023 12:26-0400Respiratory rate18 /[facility] 11-24-2023 12:26-6391GdK0% (BldA) [Mass fraction]98 %[facility]04-04-2024 12:26-0400Systolic blood badbzsvy375 mm[Hg][facility]02-20-2023 11:35-0500Body hedvdk827.72 Glendy Singh Other [employer] Other 02-20-2023 11:35-0500Body mass index (BMI) [Ratio] 42.27 kg/o2RksrxmPinky Singh Other [employer] Other 02-20-2023 11:35-0500Body hfnbxjjyqgn43.8 [degF]Pinky Singh Other [employer] Other 02-20-2023 11:35-0500Body aaxuef899.1 kgPinky Singh Other [employer] Other 02-20-2023 11:35-0500Respiratory rate18 /minPinky Singh Other [employer] Other 02-20-2023 11:35-8474KcQ3% (BldA) [Mass fraction]98 % Pinky Singh Other [employer] Other Encounters Encounter DateEncounter TypeCare ProviderFacilityStart: 06-24-2025 End: 09-87-6733Ierrdf flowsheetCorey Davie DO Work Phone: NOSG [facility] OBGYNStart: 06-24-2025 End: 63-89-4217Frsuci flowsheetCorey Davie DO Work Phone: NODP [facility] OBGYNStart: 06-24-2025 End: 70-08-3159Bzhfve outpatient visit 15 minutesCorey Davie DO Work Phone: noms [facility] OBGYNComment on above:Second trimester ([facility]); 25 weeks gestation of ([facility]); H/O pre-eclampsia in prior , currently ([facility]); Vitamin D deficiency; Chronic hypertension affecting ([facility]); Diabetes mellitus screeningStart: 06-24-2025 End: 91-14-6991ywvevpzmyuIOMSK FAZIONot AvailableStart: 06-18-2025 End: 55-72-2891Cdfoyl outpatient visit 25 minutesYordy Cruz MD Work Phone: [phone]-Pjmol [facility] Comment on above:Chronic hypertension affecting (Primary Dx); 20 weeks gestation of ; Anxiety disorder affecting , antepartum; Acute palmoplantar pustular psoriasis; Severe obesity due to excess calories affecting , antepartum ([facility]) Start: 06-18-2025 End: 90-85-2639djloaieqioZAX [facility] HospitalStart: 06-18-2025 End: 65-86-5384fmnlpjkizbQFPAK [facility]Start: 06-05-2025 End: 18-14-7210Yujstn flowsMark Qiu SHINGLE CARRIER Work Phone: NOMS [facility]BGYNStart: 06-05-2025 End: 90-02-1449Comioh flowsMark Qiu SHINGLE CARRIER Work Phone: NOMS [facility] OBGYNStart: 06-05-2025 End: 86-80-1092Yewwsqjv flow Karel Qiu SHINGLE CARRIER Work Phone: NOMS [facility]man OBGYNComment on above:Second trimester ([facility]); 23 weeks gestation of ([facility])Start: 06-05-2025 End: 24-40-1383hgqiqzmoqfOCHJUSIU UYENNot AvailableStart: 05-30-2025 End: 48-74-9697Dlgmctim flow Karel Qiu SHINGLE CARRIER Work Phone: NOMS [facility] OBGYNComment on above:Chronic hypertension affecting ([facility]) (Primary Dx); Second trimester ([facility]); 22 weeks gestation of ([facility])Start: 05-30-2025 End: 05-63-0667qfjxswtdlaXXBKRCOS UYENNot AvailableStart: 05-30-2025 End: 14-46-8297Igvrgs flowsMark Qiu SHINGLE CARRIER Work Phone: NOM[facility]BGYNStart: 05-30-2025 End: 14-22-6215Otzzgl flowsMark Qiu SHINGLE CARRIER Work Phone: NOM[facility]BGYNStart: 05-24-2025 End: 42-01-1524Oouopy OnlyAmy Nikkie LPNMaternal- Medicine at [facility] Medical CenterComment on above:Acute palmoplantar pustular psoriasis (Primary Dx); Chronic hypertension affecting ; Severe obesity due to excess calories affecting , antepartum ([facility]); Hypertension affecting in second trimesterStart: 05-23-2025 End: 01-71-3916kgbecvsgwsUQQXVNIC EBERLYNot AvailableStart: 05-23-2025 End: 06-02-5531Wegenbzm flow Karel Qiu NP Work Phone: NOEP [facility] OBGYNComment on above:Second trimester ([facility]); 21 weeks gestation of ([facility]); induced hypertension, antepartum ([facility]); Vitamin D deficiency; H/O pre-eclampsia in prior , currently ([facility])Start: 05-23-2025 End: 52-16-4414Swxhhm Jennyfer Qiu NP Work Phone: NOBW [facility] OBGYNStart: 05-23-2025 End: 10-87-5174Xtjkzn Jennyfer Qiu NP Work Phone: NOEG [facility] OBGYNStart: 05-23-2025 End: 86-58-7770Phnsdphrw Result EncounterCorey Davie DO Work Phone: noms External Department UnsolicitedStart: 05-17-2025 End: 22-09-8737Acvlzu consultation new/estab patient 60 Hannah Hare MD Work Phone: [phone]-Kujjb [facility] Comment on above:Chronic hypertension affecting (Primary Dx); Acute palmoplantar pustular psoriasis; Severe obesity due to excess calories affecting , antepartum ([facility]); 20 weeks gestation of pregnancyStart: 05-17-2025 End: 43-25-3600Ecurab OnlyAmy Forman LPNMaternal- Medicine at [facility] CenterComment on above:Acute palmoplantar pustular psoriasis (Primary Dx); Chronic hypertension affecting ; Severe obesity due to excess calories affecting , antepartum ([facility]); Hypertension affecting in second trimesterStart: 04-29-2025 End: 32-03-0047Owradcjzh department patient visitCOMMUNMEDINA HOSPITAL [facility] Companytart: 04-25-2025 End: 15-74-0481Cthbpl flowsheetCorey Davie DO Work Phone: noMS [facility] OBGYNStart: 04-25-2025 End: 71-71-1983Mkvppx flowsheetCorey Davie DO Work Phone: noMS [facility]BGYNStart: 04-25-2025 End: 56-22-9357Pqgekx outpatient visit 15 minutesCorey Davie DO Work Phone: noms [facility] OBGYNComment on above:Screening, , for anatomic survey ([facility]); Second trimester ([facility]); 17 weeks gestation of ([facility]); Screen for STD (sexually transmitted disease); Need for maternal serum alpha-protein (MSAFP) screening ([facility]); induced hypertension, antepartum ([facility]); Vitamin D deficiencyStart: 04-25-2025 End: 12-99-4539mcffzcfbjdAOEBO FAZIONot AvailableStart: 04-23-2025 End: 42-90-5234Gnnoc Caroline Cruz MD Work Phone: [phone]-Jddlv [facility] Start: 04-21-2025 End: 12-84-3320Igozgofrt Result EncounterCorey Davie DO Work Phone: noms External Department UnsolicitedStart: 04-21-2025 End: 63-12-1858Zvacynopd Result EncounterCorey Davie DO Work Phone: noms External Department UnsolicitedStart: 04-19-2025 End: 88-64-3797RjmeomBettina Moise RNMaternal- Medicine at [facility] CenterComment on above:Hypertension affecting in second trimester (Primary Dx)Start: 04-17-2025 End: 33-06-8390Wzszjxiip Result EncounterCorey Davie DO Work Phone: noms External Department UnsolicitedStart: 04-17-2025 End: 36-39-5620Nfakhycfp Result EncounterCorey Davie DO Work Phone: no External Department UnsolicitedStart: 04-11-2025 End: 51-21-0961Vedkcg flowsheetCorey Davie DO Work Phone: NOMS [place] OBGYNStart: 04-11-2025 End: 76-55-0103Wdjqqx flowsheetCorey Davie DO Work Phone: NO [facility] OBGYNStart: 04-11-2025 End: 53-02-7838Ylluva outpatient visit 15 minutesCorey Davie DO Work Phone: NOMS [place] OBGYNComment on above:15 weeks gestation of ([facility]); Second trimester ([facility]); Acute nonintractable headache, unspecified headache type; BP check; Gestational hypertension, antepartum ([facility]); induced hypertension, antepartum ([facility])Start: 04-11-2025 End: 29-44-4773Omuxbsj encounter statusCorey Davie DO Work Phone: NO HealthcareStart: 04-11-2025 End: 66-58-7003nsmmhxumjnQJERB FAZIONot AvailableStart: 03-28-2025 End: 20-44-8395Vtecwl flowsheetCorey Davie DO Work Phone: NO [facility]BGYNStart: 03-28-2025 End: 19-06-3394Bnudiy flowsheetCorey Davie DO Work Phone: no [facility]BGYNStart: 03-28-2025 End: 80-57-0468Aogkob outpatient visit 15 minutesCorey Davie DO Work Phone: [facility] [place] OBGYNComment on above:13 weeks gestation of ([facility]); Second trimester ([facility]); Acute nonintractable headache, unspecified headache typeStart: 03-28-2025 End: 90-37-0328eddfjvmahwVPGUH FAZIONot AvailableStart: 03-20-2025 End: 56-98-8305Yshymwuur Result EncounterCorey Davie DO Work Phone: noms External Department UnsolicitedStart: 03-20-2025 End: 52-65-8596Douokpfbr Result EncounterCorey Davie DO Work Phone: noms External Department UnsolicitedStart: 03-01-2025 End: 52-16-9939Mfxpcr outpatient visit 5 minutesFazio Nurse [facility] Bcp ObNOMS BCP OBStart: 03-01-2025 End: 92-86-3891ogbxefrgnnQKBPC FAZIONot AvailableStart: 01-16-2025 End: 83-69-1149Kmqdxojqc Result EncounterCorey Davie DO Work Phone: noms External Department UnsolicitedStart: 01-16-2025 End: 05-30-2723Hmntlondm Result EncounterCorey Davie DO Work Phone: noms External Department UnsolicitedStart: 01-03-2025 End: 86-12-3083Tsimzxh encounter procedureRobbie Lopez MD Work Phone: Steve JaneComment on above:Encounter for preprocedural laboratory examination (Primary Dx); Abnormal uterine bleedingStart: 01-03-2025 End: 45-93-6365Pulbnps encounter statusRobbie Lopez MD Work Phone: [facility] Work Phone: Start: 01-03-2025 End: 50-82-1618cuyqjjrqbsEAPYBA [facility]: 01-03-2025 End: 32-97-2143Kdqrxnmil for preprocedural laboratory examinationROBBIE Tapia [facility]: 12-18-2024 End: 09-58-5571Wzrhmtwb Result EncounterCorey Davie DO Work Phone: [facility] External Department UnsolicitedStart: 12-18-2024 End: 82-85-2905Uaovqirq Result EncounterCorey Davie DO Work Phone: noMS External Department UnsolicitedStart: 12-18-2024 End: 96-07-2796Mnmuuzn encounter procedureCorey Davie DO Work Phone: noms BCP OBComment on above:Skin moleStart: 12-18-2024 End: 80-40-2801yswcleuisaRjigy FazioFiCleveland Clinic [facility] Work Phone: Start: 12-18-2024 End: 51-74-8756Aptdstfb ReferredCorey Davie DO Work Phone: [facility] Path Spec [facility]man HospStart: 12-17-2024 End: 94-90-8893Ukwpojmmx Result EncounterCorey Davie DO Work Phone: NOMS External Department UnsolicitedStart: 12-17-2024 End: 68-71-3194Lnynezwin Result EncounterCorey Davie DO Work Phone: noms External Department UnsolicitedStart: 12-10-2024 End: 35-80-4280Gskuaqn encounter procedureCorey Davie DO Work Phone: noms HealthcareStart: 12-10-2024 End: 29-93-8484Lpwqkigp preventive med est patient 18-39 yrsCorey Davie DO Work Phone: NOMS BCP OBComment on above:Well woman exam with routine gynecological examStart: 12-10-2024 End: 03-33-0841jcbpnrklwnCHPZR FAZIONot AvailableStart: 12-10-2024 End: 13-23-6030Hfyeso flowsheetCorey Davie DO Work Phone: [facility] BCP OBStart: 12-10-2024 End: 53-23-2052Zwwqpd flowsheetCorey Davie DO Work Phone: [facility] BCP OBStart: 12-10-2024 End: 04-40-6980Cjsgdluhe Result EncounterCorey Davie DO Work Phone: noms External Department UnsolicitedStart: 11-16-2024 End: 36-56-0364Ionfzekto Result EncounterCorey Davie DO Work Phone: noms External Department UnsolicitedStart: 11-16-2024 End: 55-80-5809Witxphfhb Result EncounterCorey Davie DO Work Phone: NOMS External Department UnsolicitedStart: 11-12-2024 End: 52-90-0104Bndpan outpatient visit 15 minutesCorey Davie DO Work Phone: noMS [facility] OBComment on above:Encounter for fertility planning; Acute cystitis without hematuria; PCOS (polycystic ovarian syndrome); Fallopian tube disorderStart: 11-12-2024 End: 38-13-5767Zqlaxg flowsheetCorey Davie DO Work Phone: [facility] BCP OBStart: 11-12-2024 End: 54-76-7314Dhvwxg flowsheetCorey Davie DO Work Phone: noms [facility] OBStart: 11-12-2024 End: 06-75-9599vwhrhqwjopBEMKN FAZIONot AvailableStart: 11-03-2024 End: 88-79-9287Riybjsupa department patient visitCOMMUNMEDINA HOSPITAL [facility] HospitalStart: 10-18-2024 End: 20-63-8116Qfauialmo Result EncounterCorey Davie DO Work Phone: noms External Department UnsolicitedStart: 10-18-2024 End: 56-77-2602Oxizfzseg Result EncounterCorey Davie DO Work Phone: noms External Department UnsolicitedStart: 09-17-2024 End: 72-80-1313Urmnbukvu Result EncounterCorey Davie DO Work Phone: noms External Department UnsolicitedStart: 09-17-2024 End: 85-91-1070Olkdgtldk Result EncounterCorey Davie DO Work Phone: noms External Department UnsolicitedStart: 08-16-2024 End: 14-91-3519Jekwalylx Result EncounterCorey Davie DO Work Phone: noms External Department UnsolicitedStart: 08-16-2024 End: 18-84-4687Uhclvtzwn Result EncounterCorey Davie DO Work Phone: noms External Department UnsolicitedStart: 07-23-2024 End: 14-38-7602Yketqo flowsheetCorey Davie DO Work Phone: noms BCP OBStart: 07-23-2024 End: 67-12-5736Yzyecy flowsheetCorey Davie DO Work Phone: NOAO BCP OBStart: 07-23-2024 End: 93-19-7866naztlozataVRFME FAZIONot AvailableStart: 07-23-2024 End: 31-66-0337Wdsiql outpatient visit 15 minutesCorey Davie DO Work Phone: noms [facility] OBComment on above:PCOS (polycystic ovarian syndrome); Encounter for fertility planningStart: 07-18-2024 End: 25-53-9986Sbtgvmxas Result EncounterCorey Davie DO Work Phone: noms External Department UnsolicitedStart: 07-18-2024 End: 75-48-8035Khggczmhc Result EncounterCorey Davie DO Work Phone: NOBB External Department UnsolicitedStart: 06-11-2024 End: 03-48-0362Anqxao follow up visit related to original pxCorey Davie DO Work Phone: NOTX [facility] OBComment on above:Postoperative visit; S/P laparoscopic procedureStart: 06-11-2024 End: 19-59-5032Qmynzl flowsheetCorey Davie DO Work Phone: noms BCP OBStart: 06-11-2024 End: 34-14-7476Irktng flowsheetCorey Davie DO Work Phone: NOWI BCP OBStart: 06-01-2024 End: 09-34-3135Kxqhtyejv Result EncounterCorey Davie DO Work Phone: NOTW External Department UnsolicitedStart: 06-01-2024 End: 19-31-6717Vtnqkywvc Result EncounterCorey Davie DO Work Phone: NOMS External Department UnsolicitedStart: 05-03-2024 End: 61-91-8242Xldgnt outpatient visit 15 minutesCorey Davie DO Work Phone: NOFE [facility] OBComment on above:Pre-op examination; Pelvic pain in female; Fallopian tube disorderStart: 05-03-2024 End: 51-94-7359Ghfiaufaqiawe examination doneCorey Davie DO Work Phone: NOMS HealthcareStart: 04-25-2024 End: 69-40-2596Hvcbdnmzz Result EncounterCorey Davie DO Work Phone: noms External Department UnsolicitedStart: 04-25-2024 End: 62-03-5705Mmdzpzbgo Result EncounterCorey Davie DO Work Phone: NONX External Department UnsolicitedStart: 04-24-2024 End: 10-96-4098Fjsejfzuq Result EncounterCorey Davie DO Work Phone: noms External Department UnsolicitedStart: 04-24-2024 End: 99-18-4407Lvfjewvjl Result EncounterCorey Davie DO Work Phone: NOBK External Department UnsolicitedStart: 04-10-2024 End: 76-05-9054Ivpzwx flowsheetCorey Davie DO Work Phone: [facility] BCP OBStart: 04-10-2024 End: 00-83-8554Xblwmn flowsheetCorey Davie DO Work Phone: [facility] BCP OBStart: 04-10-2024 End: 30-93-3368Dzgakm outpatient visit 15 minutesCorey Davie DO Work Phone: [facility] OBComment on above:Encounter for fertility planning; PCOS (polycystic ovarian syndrome); Pelvic pain in female; Abnormal uterine bleeding (AUB)Start: 03-13-2024 End: 62-08-5354Ncswqp outpatient visit 15 minutesJames Fraire MD Work Phone: [facility] CardiologyComment on above:Heart palpitations (Primary Dx)Start: 03-12-2024 End: 28-84-8607Ctwnsxgkj encounterJennshayne Powell [facility]IAProMedica Physicians CardiologyStart: 02-22-2024 End: 13-02-3643Gsfhv abstractingScanning Provider ExternalProMedica Physicians CardiologyStart: 11-24-2023 End: 03-41-6573pgfmtzqlcaBpgvwbepf [facility] Work Phone: Start: 11-24-2023 End: 25-99-5549Uqwhnsj encounter procedureFirsthealth [facility] Work Phone: Start: 10-11-2022 End: 42-18-8959irjepnqehxGlplyl Dymond Other [facility] Other Start: 38-70-7158Djhecf outpatient new 20 minutes Pinky SinghFPG [facility] Procedures DateProcedureProcedure DetailPerforming ClinicianStart: 49-50-2807Xdrac dip stick/tablet rgnt non-auto w/o micrscpCorey Davie DO Work Phone: Start: 98-83-5332Sesdb dip stick/tablet rgnt non-auto w/o micrscpKristina Uyen [employer]INGLE [employer]ER Work Phone: Start: 95-57-2404Htoih dip stick/tablet rgnt non-auto w/o micrscpKristina Uyen [employer]INGLE [employer]ER Work Phone: Start: 11-06-5628JRD, SERUM, OPEN SPINA BIFIDACorey Davie DO Work Phone: Start: 47-35-2101Hhuxv dip stick/tablet rgnt non-auto w/o micrscpCorey Davie DO Work Phone: Start: 81-25-4585GNY TOTAL PROTEIN 24 HOUR URINECorey Davie DO Work Phone: Start: 65-55-5017Uoocl count complete automatedNot In System Ref ProvStart: 62-63-4636EIA CBC WITH AUTO DIFFCorey Davie DO Work Phone: Start: 61-16-2258Nzwyn dip stick/tablet rgnt non-auto w/o micrscpCorey Davie DO Work Phone: Start: 29-51-8783Uhkyl dip stick/tablet rgnt non-auto w/o micrscpCorey Davie DO Work Phone: Start: 00-73-3747Syjtpqei Cathi Cruz MD Work Phone: Start: 39-93-3341Sjtd scrn 1+ class nonchromoNot In System Ref ProvStart: 81-57-9203Aluqfffflc glycosylated c1sWdqrfgkb Provider ExternalStart: 47-78-4204Ylcfitxbm c antibodyNot In System Ref ProvStart: 51-66-5073TYS 1&2 AB/AG SCREEN (P24 AG)Not In System Ref ProvStart: 03-20-2025 Iaad ia hepatitis b surface antigenNot In System Ref ProvStart: 03-20-2025 SYPHILIS TOTAL(UNKNOWN SYPHILIS STATUS)Not In System Ref ProvStart: 03-20-2025 TYPE AND SCREENNot In System Ref ProvStart: 44-27-0071MFF CBC WITH AUTO DIFF Caesar Davie DO Work Phone: Start: 03-01-2025 End: 44-77-9546Yuxfi dip stick/tablet rgnt non-auto w/o micrscpCorey Davie DO Work Phone: Start: 59-55-9053PXK PROGESTERONECorey Davie DO Work Phone: Start: 60-66-8714MCCYUKFXJ REQUEST FOR LAB CORPCorey Davie DO Work Phone: Start: 95-37-6468DOZ PROGESTERONECorey Davie DO Work Phone: Start: 08-76-4088TNV,APTIMA HPV,AGE GDLNCorey Results Scorecard DO Work Phone: Start: 33-28-6198Ojstuvharcx observation [Identifier] in Cervix by Cyto stainCorey Davie DO Work Phone: Start: 41-62-4721YAQ PROGESTERONECorey Davie DO Work Phone: Start: 04-54-6478GLJ PROGESTERONECorey Results Scorecard DO Work Phone: Start: 78-00-3139KLV PROGESTERONECorey Davie DO Work Phone: Start: 79-38-5564UUT PROGESTERONECorey Davie DO Work Phone: Start: 71-67-4190QLG PROGESTERONECorey Davie DO Work Phone: Start: 96-01-9099OZN CBC WITH AUTO DIFFCorey Results Scorecard DO Work Phone: Start: 28-92-9208KV PELVIS W/ TRANSVAGINALCorey Davie DO Work Phone: Start: 84-14-2729LFT CBC WITH AUTO DIFFCorey Results Scorecard DO Work Phone: Start: 81-31-9988Npx routine ecg w/least 12 lds w/i&r James Fraire MD Work Phone: Start: 24-40-2950Reroz Strep (POC)Start: 11-23-2022 Microscopic observation [Identifier] in Cervix by Cyto stainScanning External Start: 95-90-5830Zouguxctbjk observation [Identifier] in Cervix by Cyto stain Caesar Results Scorecard DO Work Phone: Start: 20-95-6369Wkqb cerv/vag auto thin layer prep mnl screenAmy Zackary RN BIRTHING Work Phone: Plan of Treatment DateCare ActivityDetailAuthorStart: 88-84-4329Mgcjzw Vaccines (1 of 2)Zoster Vaccines (1 of 2)[facility] HospitalStart: 54-29-1701Ilugitgcw for malignant neoplasm of cervixNOMS HealthcareStart: 05-92-7397Nidvdeern for malignant neoplasm of cervixNOMS HealthcareStart: 97-74-9870Fsvxu BMI Screening Adult BMI ScreeningGrand Lake Joint Township [facility] Memorial Hospital SystemStart: 29-76-4544Umzcuog Screening Tobacco ScreeningCone Health MedCenter High Pointtart: 12-16-2025 End: 54-90-5190Ghqcyjd encounter procedureNOMS BCP OBStart: 87-27-3881Seyqisftf for malignant neoplasm of cervixPap SmearGrand Lake Joint [facility] Memorial Hospital SystemStart: 05-47-6432Ndmzdwktu for malignant neoplasm of cervixPap SmearNOMT Healthcare Start: 43-40-7744Xtglbel ScreeningTobacco ScreeningGrand Lake [facility] Hospital SystemStart: 07-09-2025 End: 62-78-4757Mtsmqvh encounter cxsuxgbox45/18/2025 1:20 PM EST Routine LIANA HEAD [address] [place], [id number] Bethany Simon PA [address] [place] [address] LIANA LAWSONGYNStart: 06-24-2025 End: 55-53-0462JYS panel - Blood by Automated countCBC Lab Routine Diabetes mellitus screening Expected: 06/24/2025 (Approximate), Expires: 06/24/2026[facility]OPemiscot [facility] Work Phone: comment on above:Expected: 06/24/2025 (Approximate), Expires: 06/24/2026Start: 06-24-2025 End: 82-68-0386Krojutschhh of glucose 1 hour after glucose challenge for glucose tolerance testGlucose tolerance, 1 hour Lab Routine Diabetes mellitus screening Expected: 06/24/2025 (Approximate), Expires: 06/24/2026NOMT HealthcareComment on above:Expected: 06/24/2025 (Approximate), Expires: 06/24/2026Start: 06-24-2025 End: 96-44-3447FP biophysical profile w non stress testUS biophysical profile w non stress test Imaging Routine 25 weeks gestation of ([facility]) H/O pre-eclampsia in prior , currently ([facility]) Chronic hypertension affecting ([facility]) Expected: 06/24/2025 (Approximate), Expires: 12/22/2025NOMS HealthcareComment on above: Expected: 06/24/2025 (Approximate), Expires: 12/22/2025Start: 06-24-2025 End: 61-57-8470IU for pregnancyUS OB follow up transabdominal approach Imaging Routine H/O pre-eclampsia in prior , currently ([facility]) Chronic hypertension affecting ([facility]) Expected: 06/24/2025, Expi res: 10/22/2025NOMT HealthcareComment on above:Expected: 06/24/2025, Expires: 10/22/2025Start: 06-24-2025 End: 84-94-4467Tdikftr encounter procedureNOMS [place]ac[place] OBGYNComment on above: ArrivedStart: 06-18-2025 End: 34-11-0925Qovkcmkndcna consultation with qszmumc3806/18/2025 2:00 PM EDT Telemedicine Maternal- Medicine at [facility] [address] [place] [phone] Yordy Cruz MD [address] [place] [address] [facility]: 06-18-2025 End: 64-76-8952Odemtok encounter zgddrrnuc26/28/2025 8:00 AM EDT Appointment [facility] - Ultrasound [address] [place] [address] [phone] [facility] - UltrasoundStart: 06-05-2025 End: 83-31-8548Ldtgrul encounter procedureNOMS [place] OBGYNComment on above: ArrivedStart: 05-30-2025 End: 02-51-0486Xwfniwx encounter procedureNOMS Aman OBGYNComment on above: ArrivedStart: 05-25-2025 End: 87-72-9004Dygvk fetoprotein, maternalAlpha fetoprotein, maternal Lab Routine Need for maternal serum alpha-protein (MSAFP) screening ([facility]) Expected: 05/25/2025 (Approximate), Expires: 05/25/2025NOMS HealthcareComment on above:Expected: 05/25/2025 (Approximate), Expires: 05/25/2025Start: 05-23-2025 End: 60-12-9344Dkrekmz encounter kgejrdexd03/02/2025 2:30 PM EDT Routine LIANA HEAD [address] [place], [id number] Rody Qiu, [employer]ING[employer]ER [address] [place] [phone] LIANA LAWSONGYNStart: 05-20-2025 End: 75-71-5371SB MFM with or without consultUS MFM with or without consult Imaging Routine Hypertension affecting in second trimesterExpected: 05/20/2025 (Approximate), Expires: 04/19/2026[facility] Work Phone: comment on above:Expected: 05/20/2025 (Approximate), Expires: 04/19/2026Start: 05-17-2025 End: 63-38-5571W[place] MFM with or without consultUS MFM with or without consult Imaging Routine 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 Severe obesity due to excess calories affecting , antepartum ([facility]) Hypertension affecting in second trimester Expected: 05/17/2025, Expires: 05/17/2026[facility] Work Phone: Comment on above:Expected: 05/17/2025, Expires: 05/17/2026Start: 05-17-2025 End: 94-10-7519Eplahlh encounter procedureProScci [facility] US ImagingStart: 04-25-2025 End: 36-10-9773Jnoifjx encounter procedureNORaritan Bay [facility] [place] OBGYNComment on above: ArrivedStart: 72-13-6175XAOXE-19 Vaccine ( season)COVID-19 Vaccine ()NOMS HealthcareStart: 50-20-6875Fzxikfmgg vaccinationNOMS HealthcareStart: 04-11-2025 End: 99-22-9545Yhzqozk aminotransferase [Enzymatic activity/volume] in Serum or PlasmaALT Lab Routine Gestational hypertension, antepartum ([facility]) induced hypertension, antepartum ([facility]) Expected: 04/11/2025 (Approximate), Expires: 04/11/2026NOMT HealthcareComment on above:Expected: 04/11/2025 (Approximate), Expires: 04/11/2026Start: 04-11-2025 End: 41-06-9315Xzackwwye aminotransferase [Enzymatic activity/volume] in Serum or PlasmaAST Lab Routine Gestational hypertension, antepartum ([facility]) induced hypertension, antepartum ([facility]) Expected: 04/11/2025 (Approximate), Expires: 04/11/2026NOMT HealthcareComment on above:Expected: 04/11/2025 (Approximate), Expires: 04/11/2026Start: 04-11-2025 End: 31-74-3639BDZ W Auto Differential panel - BloodCBC and differential Lab Routine Gestational hypertension, antepartum ([facility]) induced hy pertension, antepartum ([facility]) Expected: 04/11/2025 (Approximate), Expires: 04/11/2026[facility] HealthcareComment on above:Expected: 04/11/2025 (Approximate), Expires: 04/11/2026Start: 04-11-2025 End: 85-59-6575Aegmdgxidv [Mass/volume] in Serum or PlasmaCreatinine Lab Routine Gestational hypertension, antepartum ([facility]) induced hypertension, antepartum ([facility]) Expected: 04/11/2025 (Approximate), Expires: 04/11/2026[facility] [employer] Work Phone: comment on above:Expected: 04/11/2025 (Approximate), Expires: 04/11/2026Start: 04-11-2025 End: 95-02-9369Egkolug dehydrogenase [Enzymatic activity/volume] in Serum or Plasma by Lactate to pyruvate reactionLactate dehydrogenase Lab Routine Gestational hypertension, antepartum ([facility]) induced hypertension, antepartum ([facility]) Expected: 04/11/2025, Expires: 04/11/2026[facility] Comment on above:Expected: 04/11/2025, Expires: 04/11/2026Start: 04-11-2025 End: 63-58-6477Kvpjxiy, urine, 24 hourProtein, urine, 24 hour Lab Routine Gestational hypertension, antepartum ([facility]) induced hypertension, antepartum ([facility]) Expected: 04/11/2025 (Approximate), Expires: 04/11/2026[facility] HealthcareComment on above:Expected: 04/11/2025 (Approximate), Expires: 04/11/2026Start: 04-11-2025 End: 62-58-9798Qn and pttPt and ptt Lab Routine Gestational hypertension, antepartum ([facility]) induced hypertension, antepartum ([facility]) Expected: 04/11/2025, Expires: 04/11/2026[facility] HealthcareComment on above: Expected: 04/11/2025, Expires: 04/11/2026Start: 04-11-2025 End: 42-81-6374Oppgh [Mass/volume] in Serum or PlasmaUric acid Lab Routine Gestational hypertension, antepartum ([facility]) induced hypertension, antepartum ([facility]) Expected: 04/11/2025 (Approximate), Expires: 04/11/2026[facility] HealthcareComment on above:Expected: 04/11/2025 (Approximate), Expires: 04/11/2026Start: 04-11-2025 End: 87-92-6607Ghkn nitrogen [Mass/volume] in Serum or PlasmaBUN Lab Routine Gestational hypertension, antepartum ([facility]) induced hypertension, antepartum ([facility]) Expected: 04/11/2025, Expires: 04/11/2026[facility] Healthcare Comment on above:Expected: 04/11/2025, Expires: 04/11/2026Start: 04-11-2025 End: 02-42-7038Yqhlrwr encounter procedureNOMS Aman OBGYNComment on above: ArrivedStart: 03-28-2025 End: 62-14-6289Qddqoxs encounter procedureNOMS BCP OBComment on above:Arrived Start: 50-44-5870Fonnl BMI ScreeningAdult BMI ScreeningGrand Lake [facility] System Start: 68-51-1822Famnzpd ScreeningTobacco ScreeningCone Health MedCenter High Pointtart: 03-01-2025 End: 86-04-0252JRS/RhABO/Rh Lab Routine Missed menses , unspecified gestational age ([facility]) Expected: 03/01/2025 (Approximate), Expires: 03/01/2026NOMT HealthcareComment on above:Expected: 03/01/2025 (Approximate), Expires: 03/01/2026Start: 03-01-2025 End: 83-20-3451Gneox type and Indirect antibody screen panel - BloodType and screen Lab Routine Missed menses , unspecified gestational age ([facility]) Expected: 03/01/2025 (Approximate), Expires: 03/01/2026[facility] Healthcare Work Phone: comment on above:Expected: 03/01/2025 (Approximate), Expires: 03/01/2026Start: 03-01-2025 End: 50-75-2034Vfxfr of abuse panel - Urine by Screen methodRapid drug screen, urine Lab Routine , unspecified gestational age ([facility]) Encounter for supervision of normal first in first trimester ([facility]) Expected: 03/01/2025 (Approximate), Expires: 03/01/2026[facility] HealthcareComment on above: Expected: 03/01/2025 (Approximate), Expires: 03/01/2026Start: 02-03-2025 End: 13-74-1153Xeycwnrxcfibgmlnwe ( test) [Presence] in UrinePOCT , urine manually resulted Point of Care Testing Routine Encounter for preprocedural laboratory examination Expected: 02/03/2025 (Approximate), Expires: 04/05/2025[facility] Work Phone: Comment on above:Expected: 02/03/2025 (Approximate), Expires: 04/05/2025Start: 02-03-2025 End: 81-01-5346GsjrqljglqciaxwZmdjoeugauhucwf Procedures Routine Abnormal uterine bleeding Expected: 02/03/2025 (Approximate), Expires: 01/03/2026[facility] Service Area Work Phone: Comment on above:Expected: 02/03/2025 (Approximate), Expires: 01/03/2026Start: 02-03-2025 End: 08-07-5365UB.doppler Uterus and Fallopian tubes W saline IUUS sonohysterogram Imaging Routine Abnormal uterine bleeding Expected: 02/03/2025 (Approximate), Expires: 01/03/2026[facility] Work Phone: Comment on above:Expected: 02/03/2025 (Approximate), Expires: 01/03/2026Start: 12-18-2024 End: 34-36-8934Amjhitk encounter twswmxyaa72/29/2025 1:30 PM EDT Procedure Visit [facility] [address] [place] [phone] Caesar Broderick, DO [address] [place] [address] [facility] BCP OBStart: 04-04-6081NekvabhzcSalem Regional Medical Centertart: 12-10-2024 End: 97-72-1638Hmfzkax encounter procedureNOMS BCP OBComment on above:Arrived Start: 11-12-2024 End: 78-82-3366Bnffpom encounter procedureNOMS BCP OBComment on above:Arrived Start: 07-23-2024 End: 71-78-7917Grtgfag encounter dzrbltqni99/02/2024 1:00 PM EST Office Visit [facility] [address] [place] [address] Caesar Broderick, DO [address] [place] [address] [place] [address] NOMS BCP OBStart: 06-11-2024 End: 59-17-1531Ocjxbhf encounter jseupftnv94/21/2024 2:20 PM EDT Office Visit [facility] [address] [place] [address] Caesar Broderick, DO [address] [place] [address] [place] [address] ArrivedNOMS BCP OBComment on above:ArrivedStart: 06-01-2024 End: 77-89-6323Geokfdz encounter xdpeobgul97/11/2024 8:30 AM EDT Procedure Visit [facility] EXT DEP Caesar Broderick, DO [address] [place] [address] [place] [address] NOMS EXT DEPStart: 05-03-2024 End: 11-07-9880Esgbnob encounter wyyvlmdyr29/12/2024 11:40 AM EDT Consult [facility] [address] [place] [address] Caesar Broderick, DO [address] [place] [address] [place] [address] NOMS BCP OBStart: 49-37-2870XYVZZ-19 Vaccine ( season)COVID-19 Vaccine ( season)[facility] Start: 53-33-6886Joikqhlzg vaccinationNOMT HealthcareStart: 04-10-2024 End: 44-23-7660Bksvfdhchuydp hormone (AMH)Antimullerian hormone (AMH) Lab Routine PCOS (polycystic ovarian syndrome) Expected: 04/10/2024 (Approximate), Expires: 04/10/2025N[facility]S HealthcareComment on above:Expected: 04/10/2024 (Approximate), Expires: 04/10/2025Start: 04-10-2024 End: 54-68-3624CBTQNQAG Lab Routine PCOS (polycystic ovarian syndrome) Expected: 04/10/2024 (Approximate), Expires: 04/10/2025N[facility] HealthcareComment on above: Expected: 04/10/2024 (Approximate), Expires: 04/10/2025Start: 04-10-2024 End: 65-93-0588CM for pregnancyUS PELVIS-TRANSVAG IF INDICATED Imaging Routine PCOS (polycystic ovarian syndrome) Pelvic pain in female Expected: 04/10/2024 (Approximate), Expires: 04/10/2025NO HealthcareComment on above:Expected: 04/10/2024 (Approximate), Expires: 04/10/2025Start: 04-10-2024 End: 32-16-7959Kxwxwpv encounter pomguwcfk24/20/2024 9:10 AM EDT Office Visit [facility] [address] [place] [address] Caesar Broderick, [address] [facility] [place] [address] [facility] OBComment on above:ArrivedStart: 03-13-2024 End: 34-14-8834Kvjrsuq encounter /23/2024 11:00 AM EDT Office Visit [facility] [address] [place] [phone] James Fraire MD [address] [facility] [id number] [facility] CardiologyStart: 14-50-6527Amwus BMI ScreeningAdult BMI ScreeningProOhiohealth Riverside Methodist Hospitalca Health SystemStart: 25-80-9453Rxdhhiv ScreeningTobacco ScreeningProOhiohealth Riverside Methodist Hospitalca [facility] SystemStart: 49-82-7030AEV Vaccines (1 - 3-dose SCDM series)HPV Vaccines (1 - 3-dose SCDM series)[facility]: 19-49-5775RQcN/Tdap/Td Vaccines (1 - Tdap)DTaP/Tdap/Td Vaccines (1 - Tdap)[facility]: 11-92-3123Dngcdbsmm for malignant neoplasm of cervixHPV/C[facility]Un[facility]: [id number],Tdap and Td Vaccines (1 - Tdap) DTaP,Tdap and Td Vaccines (1 - Tdap)[facility]: 2011 Hepatitis B Vaccines (1 of 3 - 19+ 3-dose series)Hepatitis B Vaccines (1 of 3 - 19+ 3-dose series)[facility]: [id number] BMI Follow Up PlanAdult BMI Follow Up PlanC[facility] Health MedCenter High Pointtart: 2010 Hepatitis C screeningHepatitis C ScreeningJoint [facility] Start: 17-47-5266Phdekpm of varicella vaccinationVaricella Vaccines (1 of 2 - 13+ 2-dose series)[facility] HealthcareStart: 91-95-5706Kukcsqbsk vaccinationVaricella Vaccines (1 of 2 - 13+ 2-dose series)[facility]: 29-68-0690Qewdublnyb ScreeningDepression ScreeningProLima City Hospitaltart: 88-12-7623EEwP/Tdap/Td Vaccines (1 - Tdap)DTaP/Tdap/Td Vaccines (1 - Tdap)[facility]Start: 94-00-5429FMK Vaccines (1 of 1 - Standard series)MMR Vaccines (1 of 1 - Standard series)[facility]: 55-96-5325RMZ screeningHIV ScreeningUnMercy Health: 47-05-8165Ygbll panelLipid PanelMartins Ferry Hospital: 26-70-1425Pcsayn Adult PhysicalYearly Adult PhysicalUnPremier HealthBacteria identified in Urine by CultureUrine culture Microbiology Routine Missed menses Ordered: 03/01/2025[facility] HealthcareComment on above:Ordered: 5CBC W Auto Differential panel - BloodCBC and differential Lab Routine PCOS (polycystic ovarian syndrome) Ordered: 04/10/2024[facility] HealthcareComment on above:Ordered: 04/10/2024BC W Auto Differential panel - BloodCBC and differential Lab Routine Missed menses , unspecified gestational age ([facility]) Ordered: 03/01/2025[facility] HealthcareComment on above:Ordered: 03/01/2025HLAMYDIA TRACHOMATIS (GENITO/STI)CHLAMYDIA TRACHOMATIS (GENITO/STI) Lab Routine Screen for STD (sexually transmitted disease) Ordered: 04/25/2025[facility] HealthcareComment on above:Ordered: 04/25/2025 End: 20-40-0208Wxjiiukljo, urine, 24 hourCreatinine, urine, 24 hour Lab Routine Chronic hypertension affecting 20 weeks gestation of 1 Occurrences starting 05/17/2025 until 05/17/2026ProW. D. [facility] Health SystemComment on above:1 Occurrences starting [...] Routine Missed menses , unspecified gestational age ([facility]) Ordered: 03/01/2025[facility] HealthcareComment on above:Ordered: [...] ([facility]HCC) Ordered: 03/01/2025[facility] HealthcareComment on above: [...] [facility] HealthcareComment on above:Ordered: 04/10/2024 End: 96-55-4334Ckhbyfixrpw peptide B [Mass/volume] in BloodB-type natriuretic peptide Lab Routine Chronic hypertension affecting 20 weeks gestation of 1 Occurrences starting 05/17/2025 until 05/17/2026[facility] Work Phone: Comment on above:1 Occurrences starting 05/17/2025 until 05/17/2026Natriuretic peptide B [Mass/volume] in BloodB-type natriuretic peptide Lab Routine Chronic hypertension affecting 20 weeks gestation of 05/17/2025 9:54 AM [facility]Ne[facility] gonorrhoeae DNA [Presence] in Unspecified specimen by [facility] with probe detectionNeisseria gonorrhea DNA probe, direct Lab Routine Screen for STD (sexually transmitted disease) Ordered: 04/25/2025[facility] HealthcareComment on above:Ordered: 04/25/2025 End: 35-42-2354Sudekff, urine, 24 hourProtein, urine, 24 hour Lab Routine Chronic hypertension affecting 20 weeks gestation of 1 Occurrences starting 05/17/2025 until 05/17/2026[facility] SystemComment on above:1 Occurrences starting 05/17/2025 until 05/17/2026Reagin Ab [Presence] in Serum by RPRRPR Lab Routine Missed menses , unspecified gestational age ([facility]) Ordered: 03/01/2025[facility] HospitalComment on above:Ordered: 03/01/2025Rubella antibody, IgGRubella antibody, IgG Lab Routine Missed menses , unspecified gestational age ([facility]) Ordered: 03/01/2025[facility] HealthcareComment on above:Ordered: 03/01/2025SURESWAB(R) ADVANCED VAGINITIS PLUS, TMASURESWAB(R) ADVANCED VAGINITIS PLUS, TMA Pathology and Cytology Routine Screen for STD (sexually transmitted disease) Ordered: 04/25/2025[facility] Work Phone: comment on above:Ordered: 04/25/2025Thyrotropin [Units/volume] in Serum or PlasmaTSH Lab Routine PCOS (polycystic ovarian syndrome) Ordered: 04/10/2024[facility] HospitalComment on above:Ordered: 04/10/2024 Thyroxine (T4) free [Mass/volume] in Serum or PlasmaT4, free Lab Routine PCOS (polycystic ovarian syndrome) Ordered: 04/10/2024[facility] HospitalComment on above:Ordered: 04/10/2024 Payers DatePayer CategoryPayerPolmercyone [facility] [id number]-pay2023Medicaid [id number] [id number] 2..[id number] 2.0.1.682694.3.57[id number] 2.0.1.187282.3.579.2.340116-81-7699Xhilvhu [id number] 2.0.1.548726.3.57[id number] 2.16840.1.303167.3.57[id number] 2.16840.1.895410.3.57[id number] 2.16840.1.579953.3.57[id number] 2.16840.1.451497.3.57[id number] 2..1.140378.3.57[id number] 2..1.939416.3.57[id number] 2.0.1.283032.3.57[id number] 2..1.573629.3.57[id number] 2..1.503948.3.57[id number] 2..1.333937.3.57[id number] 2.840.1.870568.3.57[id number] 2.0.1.993116.3.579.[id number] 2.16840.1.011559.3.57[id number] 2.840.1.894269.3.579.2.[id number] 2.16.840.1.633840.3.579.2.610058-48-1330Tjkkmfj7879500 2.16.840.1.246485.3.57[id number] 2.16.840.1.25[id number] 2.16.840.1.734904.3.579.2.531 Social History DateTypeDetailFacilityStart: 02-22-2024 End: 81-02-1124Apm Assigned At [facility] Other Start: 78-44-8647Nla Assigned At [facility] HospitalTobacco smoking status NHISTobacco smoking consumption unknownNOMT HealthcareStart: 94-67-3983Fmf assigned at birthNot on fileProW. D. [facility] [employer] SystemStart: 10-09-2022 End: 58-73-5645Tufrlmq smoking status NHISNever smoked tobaccoProW. D. Partlow Developmental Center [employer] SystemStart: 10-09-2022 End: 09-74-9961Lwnojyv use and exposureSmokeless tobacco non-userProW. D. [facility]al [facility] [employer] SystemStart: 02-22-2024 End: 45-34-0297Ffiyvrwlk beverage intakeEx-drinker (finding)[facility] SystemStart: 02-22-2024 End: 88-78-0770Fojvfoe of Social functionProMediMercy Health St. [facility] SystemStart: 76-13-9079Rraoyp the past 12 months we worried whether our food would run out before we got money to buy more.Never TrueProOhiohealth Riverside Methodist HospitalCommonTime SystemStart: 09-30-2022 End: 71-90-8166IneOlcozb (finding)[facility] Centertart: 18-52-9904Yttywxrxa beverage intakeLifetime non-drinker (finding)[facility] Work Phone: Start: 12-24-2024 End: 79-47-0455Nlxjiorx to SARS-CoV-2 (event)Not sureUnPremier HealthStart: 68-45-1797RmlpfqyprWGOR Healthcare Functional Status MpnlTdvpipxlbjZokbywOztsyqax06-60-5838Gxphxsc Health Questionnaire 2 item (PHQ- 2) [Reported][facility] HospitalKcoonibujx64-91-6445Rytqxjt Health Questionnaire 2 item (PHQ- 2) [Reported][facility] Work Phone: [phone]) 947-231005265255-83-6936Xhkoyvtq - 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 Exam conducted with a prepress stripper present. Vitals: Estimated body mass index is 43.33 kg/m as calculated from the following: Height as of 06/11/24: 5' 8 . Weight as of this encounter: 285 lb. BP: 150/86 Patient's last menstrual period was 12/26/2024. Assessment/Plan ICD-10-CM 1. Second trimester ([facility]) Z34.92 POCT urinalysis dipstick manually resulted 2. 25 weeks gestation of ([facility]) Z3A.25 labetalol (Normodyne) 100 MG tablet 3. H/O pre-eclampsia in prior , currently ([facility]) O09.299 labetalol (Normodyne)100 MG tablet 4. Vitamin D deficiency E55.9 5. Chronic hypertension affecting ([facility]) O10.919 labetalol (Normodyne) 100 MG tablet [...] given for patient to get scheduled at [facility] and [facility] Scheduling. Patient to return to clinic in 2 weeks for routine OB appointment. Patient has had ER visits since last appointment due to headaches and elevated BP. Patient to have no lifting and to rest while off work. Documented by Karoline Casillas LPN on behalf of: Caesar Broderick DO documented in this encounterSac-Osage HospitalRslbaglaxs76-91-1152 History of Present illness Narrative* Yordy Cruz [...] AND ULTRASOUND REPORTS: Referral records and [facility] chart were reviewed Pertinent Ultrasound findings are [...] ultrasound, attempt completion in 4 weeks through [facility] serial growth ultrasounds every 4 weeks [...] patient is in complete care of her photolithographic stripper. Patient does have ultrasound and office visit scheduled with us. Thank you for allowing me to participate in the care of Ellen Ramires. If there any questions please do not hesitate to contact us. Yordy Cruz MD Maternal- Medicine [facility] [address] [place] [address] This document was created with [employer] technology. Though I make every effort to review the dictation as it is transcribed, on occasion the spoken word can be misinterpreted by the technology leading to inappropriate words, phrases, or sentences. This note is addressed to the requesting provider as a consultation for clinical guidance. Specificmedical abbreviations are occasionally used and those are generally approved by the [place]?Board of?Obstetrics and?Gynecology?as well as?Rama tapia abbreviations. The above plan of care was based solely on the diagnoses for which a consultation was requested. ?More frequent testing may be indicated based on her other medical/obstetrical conditions. The management of other or medical conditions is beyond the scope of requested consultation and will c ontinue to be followed by the primary photolithographic stripper or primary care provider. Note to patient: [...] opinion of the practitioner. documented in this encounterK[facility]10-15-2025 History of Present illness Narrative* Rody Qiu [...] (polycystic ovarian syndrome) 07/30/2024 induced hypertension, antepartum ([facility]) 04/25/2025 Vitamin D deficiency 05/23/2025 H/O pre-eclampsia in prior , currently ([facility]) 05/23/2025 Resolved Ambulatory Problems Diagnosis Date [...] nursing note reviewed. Exam conducted with a prepress stripper present. Vitals: Estimated body mass index is 42.99 kg/m as calculated from the following: Height as of 06/11/24: 5' 8 . Weight as of this encounter: 282 lb 12 oz. BP: 130/76 Patient's last menstrual period was 12/26/2024. ASSESSMENT & PLAN ICD-10-CM 1. Second trimester ([facility]) Z34.92 POCT urinalysis dipstick manually resulted 2. 23 weeks gestation of ([facility]) Z3A.23 Return OB: Patient presents today [...] 06/01/2024 WISDOM TOOTH EXTRACTION documented in this encounterSac-Osage HospitalSpgrpeugki94-50-6812 History of Present illness Narrative* Rody Qiu [...] (polycystic ovarian syndrome) 07/30/2024 induced hypertension, antepartum ([facility]) 04/25/2025 Vitamin D deficiency 05/23/2025 H/O pre-eclampsia in prior , currently ([facility]) 05/23/2025 Resolved Ambulatory Problems Diagnosis Date [...] nursing note reviewed. Exam conducted with a prepress stripper present. Vitals: Estimated body mass index is 43.03 kg/m as calculated from the following: Height as of 06/11/24: 5' 8 . Weight as of 05/23/25: 283 lb. BP: Patient's last menstrual period was 12/26/2024. ASSESSMENT & PLAN ICD-10-CM 1. Second trimester ([facility]) Z34.92 2. 22 weeks gestation of ([facility]) Z3A.22 POCT urinalysis dipstick manually resulted [...] of: Rody Qiu NP documented in this encounterSac-Osage HospitalHqigkbbtef36-41-1807 History of Present illness Narrative* Rody Qiu [...] (polycystic ovarian syndrome) 07/30/2024 induced hypertension, antepartum ([facility]) 04/25/2025 Vitamin D deficiency 05/23/2025 H/O pre-eclampsia in prior , currently ([facility]) 05/23/2025 Resolved Ambulatory Problems Diagnosis Date [...] nursing note reviewed. Exam conducted with a prepress stripper present. Vitals: Estimated body mass index is 43.03 kg/m as calculated from the following: Height as of 06/11/24: 5' 8 . Weight as of this encounter: 283 lb. BP: 142/82 Patient's last menstrual period was 12/26/2024. ASSESSMENT & PLAN ICD-10-CM 1. Second trimester ([facility]) Z34.92 POCT urinalysis dipstick manually resulted 2. 21 weeks gestation of ([facility]) Z3A.21 3. induced hypertension, antepartum ([facility]) O13.9 4. Vitamin D deficiency E55.9 5. H/O pre-eclampsia in prior , currently ([facility]) O09.299 Return OB: Patient presents today [...] of: Rody Qiu NP documented in this encounterSac-Osage HospitalIxknhgiwcj00-84-4012 History of Present illness Narrative* Bethany Lundy [...] No Have you been seen here at [facility] in a previous ? No Recent ER visits or hospitalizations? Yes, for slicing thumb on mandolin Bring blood sugar log or meter with you today? (Please bring them with you for every visit at [facility]) N/A Flu vaccine (Jun-October)? N/A [...] AND ULTRASOUND REPORTS: Referral records and [facility] chart were reviewed Pertinent Ultrasound findings are [...] recommended threshold of 160/110. Referenc e: PMID: [id number], 2021. Blood pressures do increase as progresses [...] preeclampsia prevention as is recommended by the [place] [employer] Gynecology Committee Opinion No. 743. [...] patient is in complete care of her photolithographic stripper. Patient does have ultrasound and office visit scheduled with us. Thank you for allowing me to participate in the care of Ellen Ramires. If there any questions please do not hesitate to contact us. Yordy Cruz MD Maternal- Medicine [address] [place] [address] This document was created with [employer] technology. Though I make every effort to review the dictation as it is transcribed, on occasion the spoken word can be misinterpreted by the technology leading to inappropriate words, phrases, or sentences. This note is addressed to the requesting provider as a consultation for clinical guidance. Specificmedical abbreviations are occasionally used and those are generally approved by the [place]?Board of?Obstetrics and?Gynecology?as well as?Rama tapia abbreviations. The above plan of care was based solely on the diagnoses for which a consultation was requested. ?More frequent testing may be indicated based on her other medical/obstetrical conditions. The management of other or medical conditions is beyond the scope of requested consultation and will c ontinue to be followed by the primary photolithographic stripper or primary care provider. Note to patient: [...] Blood drawn for cell-free DNA testing per [facility] phlebotomy. Patient tolerated well. documented in this encounterK[facility]tering [facility]09-04-2025 History of Present illness Narrative* Rody Qiu [...] (polycystic ovarian syndrome) 07/30/2024 induced hypertension, antepartum ([facility]) 04/25/2025 Resolved Ambulatory Problems Diagnosis Date Noted [...] nursing note reviewed. Exam conducted with a prepress stripper present. Vitals: Estimated body mass index is 42.88 kg/m as calculated from the following: Height as of 06/11/24: 5' 8 . Weight as of this encounter: 282 lb. BP: 138/82 Patient's last menstrual period was 12/26/2024. ASSESSMENT & PLAN ICD-10-CM 1. Screening, , for anatomic survey ([facility]) Z36.89 CANCELED: US OB 14+ weeks anatomy scan 2. Second trimester ([facility]) Z34.92 POCT urinalysis dipstick manually resulted 3. 17 weeks gestation of ([facility]) Z3A.17 4. Screen for STD (sexually transmitted disease) Z11.3 SURESWAB(R) ADVANCED VAGINITIS PLUS, TMA CHLAMYDIA TRACHOMATIS (GENITO/STI) Neisseria gonorrhea DNA probe, direct 5. Need for maternal serum alpha-protein (MSAFP) screening ([facility]) Z36.1 Alpha fetoprotein, maternal Alpha fetoprotein, maternal 6. induced hypertension, antepartum ([facility]) O13.9 7. Vitamin D deficiency E55.9 [...] of: Caesar Broderick DO documented in this encounterSac-Osage HospitalDyysaltijl16-45-0510 History of Present illness Narrative* Karoline Casillas, CUSTOMER RETENTION SPECIALIST - 04/11/2025 10:30 AM EDT Reason for [...] nursing note reviewed. Exam conducted with a prepress stripper present. Vitals: Estimated body mass index is 42.63 kg/m as calculated from the following: Height as of 06/11/24: 5' 8 . Weight as of this encounter: 280 lb 6.4 oz. BP: 140/86 Patient's last menstrual period was 12/26/2024. ASSESSMENT & PLAN ICD-10-CM 1. 15 weeks gestation of ([facility]) Z3A.15 POCT urinalysis dipstick manually resulted 2. Second trimester ([facility]) Z34.92 POCT urinalysis dipstick manually resulted 3. Acute nonintractable headache, unspecified headache type R51.9 4. BP check Z01.30 Patient presents today for a routine obstetrics appointment. Patient is currently 15w1d with a Estimated Date of Delivery: 10/02/25. Patient is having persistent elevated HTN. Discussed patient being referred to [facility] for management and recommendations for Gestational HTN. Patient is agreeable with referral. Patient to be started on Labetalol 200mg BID. Patient given labs and 24 hour urine to have obtained for baseline testing. Patient aware that once lab results are obtained then referral will be completed, so then all results can be sent to [facility] at onetime. Patient to return to clinic in 4 weeks for routine OB appointment. Patient to reach out to office with any concerns/questions. Documented by Karoline Casillas LPN on behalf of: Caesar Broderick DO documented in this encounterSac-Osage HospitalGvqegsogss12-07-1356 History of Present illness Narrative* Karoline Casillas [...] nursing note reviewed. Exam conducted with a prepress stripper present. Vitals: Estimated body mass index is 42.29 kg/m as calculated from the following: Height as of 24: 5' 8 . Weight as of this encounter: 278 lb 1.9 oz. BP: 138/80 Patient's last menstrual period was 12/26/2024. ASSESSMENT & PLAN ICD-10-CM 1. 13 weeks gestation of ([facility]) Z3A.13 POCT urinalysis dipstick manually resulted 2. Second trimester ([facility]) Z34.92 POCT urinalysis dipstick manually resulted [...] or undercooked meat, and stay away from [facility]. Patient has been consulted regarding any [...] of: Caesar Broderick DO documented in this encounterSac-Osage HospitalBvxcbkjgtm63-72-3315 History of Present illness Narrative* Melanie Almaraz [...] dipstick manually resulted , unspecified gestational age ([facility]) - Type and screen; Future - ABO/Rh; Future - CBC and differential - Hemoglobin A1c - RPR - Rubella antibody, IgG - Hepatitis B surface antigen - Hepatitis C antibody - HIV-1 and HIV-2 antibodies - Rapid drug screen, urine; Future Encounter for supervision of normal first in first trimester ([facility]) - Rapid drug screen, urine; Future 9 weeks gestation of ([facility]) Nurse Note: Pt uncertain of doing the [place] [employer] to one. Advised pt if she does to make sure both labs and [place] is done at the same time. PVU. Pt did state she had a Vit. D deficiency and has a h/o high blood pressure with G1. Kalani ID [employer] advised patient showed in dating [place] today [...] or undercooked meat, and stay away from [facility]. Patient has also been advised to [...] by: Melanie Almaraz MA documented in this encounterSac-Osage HospitalAwsjfsxzsf12-68-6773 History of Present illness Narrative* Robbie Lopez [...] bilateral tubal patency Saline Infused Sonography: None LOAN BROKER Pelvic Ultrasound: 2023 FINDINGS: UTERUS: Normal size [...] 10/2024 Thyroid profile includes TSH FT4 Order: [id number] Component Ref Range & Units 2 mo [...] -- -- -- 2.68 -- -labs done 1022-8517 Relationship Status: Have you ever been ? 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 Tadalafil - 10mg as needed Injuries: No STD: No Please select all that are applicable: SA: Yes SA Results: Yes -Done at [facility] 2023- reports was told normal, no report [...] family history on file. documented in [facility] encounterJoint [facility] Work Phone: 1(383) 873-844205-15-2025 Instructions* Patient Instructions* Robbie Lopez MD - [...] Lopez 01/03/2025 11:05 AM documented in this encounterJoint [facility] District [facility] Hospital Work Phone: 1(826) 586-126704-29-2025 History of Present illness Narrative* Kita Griggs [...] nursing note reviewed. Exam conducted with a prepress stripper present. Vitals: Estimated body mass index is [...] after allowing sufficient time to take affect. mixing picker tender and scissors used to remove affected area. Placed in formalin and sent to pathology. Post-procedure instructions given. Follow Up: as needed Documented by Kita Griggs LPN on behalf of: Caesar Broderick DO documented in this encounterSac-Osage HospitalIcrnohgmta76-37-8906 History of Present illness Narrative* Melanie Almaraz [...] nursing note reviewed. Exam conducted with a prepress stripper present. Vitals: Estimated body mass index is [...] of: Caesar Broderick DO documented in this encounterSac-Osage HospitalOpvkyfppqp80-08-0819 History of Present illness Narrative* Karoline Casillas [...] of: Caesar Broderick DO documented in this encounterSac-Osage HospitalQngvccdgmn12-27-4384 History of Present illness Narrative* Kita Griggs [...] nursing note reviewed. Exam conducted with a prepress stripper present. Vitals: Estimated body mass index is [...] of: Caesar Broderick DO documented in this encounterSac-Osage HospitalXxokwnfqkm21-52-9811 History of Present illness Narrative* Karoline Casillas [...] nursing note reviewed. Exam conducted with a prepress stripper present. Vitals: Estimated body mass index is [...] of: Caesar Broderick DO documented in this encounterSac-Osage HospitalFsvkfnaaju62-73-1187 History of Present illness Narrative* Whitney Pain[employer] - 05/03/2024 11:40 AM EDT Reason for Appointment: Patient ID: Ellen Ramires is a 34 y.o. female who presents for Pre-op Visit Patient presents today for Pre Op appointment. Patient is scheduled to undergo Diagnostic Laparoscopy, possible FLAKITO, possible FOE, possible BSO, possible Chromopertubation on 06/01/[address] [facility]derick at [facility]. MEDICATIONS Current Outpatient Medications Medication [...] nursing note reviewed. Exam conducted with a prepress stripper present. Vitals: There is no height or [...] reviewed, and patient is to proceed to [facility] OR. Follow Up: Patient is to follow up between 1-2 weeks post operative to assess proper healing and recovery fromprocedure. Documented by Karoline Casillas LPN on behalf of: Caesar Broderick DO documented in this encounterSac-Osage [id number] History of Present illness Narrative* Kita Griggs [...] nursing note reviewed. Exam conducted with a prepress stripper present. 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 PCP: [facility] Jazmín Referring Physician: Sabiha [place] [address] [facility] Miscellaneous Notes* Telephone Encounter - Sheyla Powell CMA - 03/12/2024 2:47 PM EDT Left message for patient to remind them to bring their most current medication list with them to their appointment. documented in this encounterK[facility]24 Telephone encounter Note* Telephone Encounter - Sheyla Powell CMA - 03/12/2024 2:47 PM EDT Left message for patient to remind them to bring their most current medication list with them to their appointment. [facility]-20[facility] Evaluation note* Encounter Date Diagnosis Assessment Notes [...] the onset of your symptoms of COVID Meuugame Other Chief complaint+Reason for visit Narrative* Chief Complaint sinus pressure, coug h Reason for Visit Contact with and (matt spected) exposure to covid-19 Sore throat Sinusitis [facility] Work Phone: Evaluation note* Diagnosis Onset Date Resolution Status Contact with and (suspected) exposure to covid-19 acuteSore throatacuteSinusitisnoneactive [facility] Work Phone: Evaluation note* Diagnosis Postoperative visit S/P laparoscopic procedure Other postprocedural status documented in this encounter [facility]* Diagnosis PCOS (polycystic ovarian syndrome) Polycystic ovaries Encounter for fertility planning documented in this encounter [facility]* Diagnosis Pre-op examination Pelvic [...] uterine bleeding (AUB) documented in this encounter [facility]* Diagnosis Heart palpitations- Primary Palpitations documented in this encounter [facility]* Diagnosis Encounter for [...] [facility] HealthcareEvaluation noteNo assessment information availableGreen [facility] Work Phone: Evaluation note* Diagnosis Encounter for preprocedural laboratory examination- Primary Abnormal uterine bleeding Unspecified disorder of menstruation and other abnormal bleeding from female genital tract documented in this encounter [facility] Work Phone: Evaluation note* Diagnosis Amenorrhea Absence of menstruation Missed menses , unspecified gestational age ([facility]) Encounter for supervision of normal first in first trimester ([facility]) 9 weeks gestation of ([facility]) Vitamin D deficiency History of hypertension Personal history of other diseases of circulatory system documented in this encounter [facility]* Diagnosis 13 weeks gestation of ([facility]) Second trimester ([facility]) state, incidental Acute nonintractable headache, unspecified headache type documented in this encounter [facility]* Diagnosis 15 weeks gestation of ([facility]) Second trimester ([facility]) state, incidental Acute nonintractable headache, unspecified headache type BP check Screening for hypertension Gestational hypertension, antepartum ([facility]) induced hypertension, antepartum ([facility]) Transient hypertension of , antepartum documented [facility] encounter [facility]* Diagnosis Hypertension affecting in second trimester- Primary [facility] Diagnosis Screening, , for anatomic survey ([facility]) Encounter for anatomic survey Second trimester ([facility]) state, incidental 17 weeks gestation of ([facility]) Screen for STD (sexually transmitted disease) Screening examination for venereal disease Need for maternal serum alpha-protein (MSAFP) screening ([facility]) induced hypertension, antepartum ([facility]) Transient hypertension of , antepartum Vitamin D deficiency documented in this encounter [facility]* Diagnosis Chronic 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 Severe obesity due to excess calories affecting , antepartum ([facility]) 20 weeks gestation of documented in this encounter [facility]* 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 Chronic hypertension affecting Severe obesity due to excess calories affecting , antepartum ([facility]) Hypertension affecting in second trimester documented in this encounter [facility]* 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 Chronic hypertension affecting Severe obesity due to excess calories affecting , antepartum ([facility]) Hypertension affecting in second trimester documented [facility] encounter [facility]* Diagnosis Chronic hypertension affecting ([facility])- Primary Second trimester ([facility]) state, incidental 22 weeks gestation of ([facility]) documented in this encounter [facility]* Diagnosis Second trimester ([facility]) state, incidental 21 weeks gestation of ([facility]) induced hypertension, antepartum ([facility]) Transient hypertension of , antepartum Vitamin D deficiency H/O pre-eclampsia in prior , currently ([facility]) documented in this encounter [facility]* Diagnosis Second trimester ([facility]) state, incidental 23 weeks gestation of ([facility]) documented in this encounter [facility]* Diagnosis Chronic hypertension affecting - Primary 20 weeks gestation of Anxiety disorder affecting , 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 Severe obesity due to excess calories affecting , antepartum ([facility]) documented [facility] Diagnosis Second trimester ([facility]) state, incidental 25 weeks gestation of ([facility]) H/O pre-eclampsia in prior , currently ([facility]) Vitamin D deficiency Chronic hypertension affecting ([facility]) Diabetes mellitus screening Screening for diabetes mellitus documented in this encounter [facility] HealthcareInstructionsNot on filedocumented in this encounterGrand [facility] SystemInstructionsNot on filedocumented in this encounterGrand [facility] SystemInstructionsNot on filedocumented in this encounterGrand [facility] SystemInstructionsNot on filedocumented in this encounterGrand [facility] InstructionsNot on filedocumented in this [facility] InstructionsNot on filedocumented in this [facility] InstructionsNot on filedocumented in this encounterGrand [facility] InstructionsNot on filedocumented in this encounterGrand [facility] InstructionsNot on filedocumented in this [facility] Family History No Family [...] PALPITATIONS SCHED W/ PT LABS [facility] AT PCPSpecialtyDiagnoses / ProceduresReferred By Contact Referred To ContactCardiology Diagnoses Heart palpitations Sabiha Aviles, KRISTINE-RN BIRTHING [address] [place] [id number] [facility] [address] [place] [address] Referral IDStatusReasonStart DateExpiration DateVisits RequestedVisits [id number] Review Specialty Services Required /[id number]-[id number] ExamReason CommentsMole removalReasonCommentsInfertilityReasonCommentsAmenorrheaReason CommentsRoutine VisitReasonCommentsgHTNPCOS Care Teams [...] DateEnd Date Kromer, Judy PCP - [facility] [place] [facility]7/09/14Team MemberRelationshipSpecialtyStart DateEnd Date Kromer, Judy PCP - [facility] [place] [facility]7/09/14Team MemberRelationshipSpecialtyStart DateEnd Date Kromer, Judy PCP - [facility] [place] [facility]7/09/14Team MemberRelationshipSpecialtyStart DateEnd Date Kromer, Judy PCP - [facility] [place] [facility]7/09/14Team MemberRelationshipSpecialtyStart DateEnd Date Kromer, Judy PCP - [facility] [place] [facility]7/09/14Team MemberRelationshipSpecialtyStart DateEnd Date Kromer, Judy PCP - [facility] [place] [facility]7/09/14Team MemberRelationshipSpecialtyStart DateEnd Date Kromer, Judy PCP - [facility] [place] [facility]7/09/14Team MemberRelationshipSpecialtyStart DateEnd Date [address] [place] PCP - GeneralFamily Medicine11/12/22Team MemberRelationshipSpecialtyStart DateEnd Date [facility] [address] [place] PCP - GeneralFamily Medicine11/12/22Team MemberRelationshipSpecialtyStart DateEnd Date [facility] [address] [place] PCP - GeneralFamily Medicine11/12/22Team MemberRelationshipSpecialtyStart DateEnd Date Kromer, Judy PCP - [facility] [place] [facility]02/20/24Team MemberRelationshipSpecialtyStart DateEnd Date Kromer, Judy PCP - [facility] [place] [facility]02/20/24Team MemberRelationshipSpecialtyStart DateEnd Date Kromer, Judy PCP - [facility] [place] [facility]02/20/24Team MemberRelationshipSpecialtyStart DateEnd Date Kromer, Judy PCP - [facility] [place] [facility]02/20/24 Team Status: Inactive Member Role Status Dates Caesar Broderick DO Attending Provider Active Start : December 18, 2024 End: December 18, 2024Team MemberRelationshipSpecialtyStart DateEnd Date June Trinidad LPN Licensed Practical NurseReproductive Endocrinology and Infertility01/01/25Team MemberRelationshipSpecialtyStart DateEnd Date Kromer, Judy PCP - [facility] [place] [facility]02/20/24Team MemberRelationshipSpecialtyStart DateEnd Date Kromer, Judy PCP - [facility] [place] [facility]02/20/24Team MemberRelationshipSpecialtyStart DateEnd Date Kromer, Judy PCP - [facility] [place] [facility]02/20/24Team MemberRelationshipSpecialtyStart DateEnd Date Judy Caal PCP - [facility] [place] [facility]02/20/24am MemberRelationshipSpecialtyStart DateEnd Date Services, [facility] [address] [place], [place] PCP - GeneralFamily Medicine11/03/24Team MemberRelationshipSpecialtyStart DateEnd Date Services, [facility] [address] [place], [place] PCP - GeneralFamily Medicine11/03/24Team MemberRelationshipSpecialtyStart DateEnd Date Lima Caalsa PCP - [facility]02/20/24Team MemberRelationshipSpecialtyStart DateEnd Date [facility], [facility] [address] [place], [place] PCP - GeneralFamily Medicine11/03/24Team MemberRelationshipSpecialtyStart DateEnd Date Services, [facility] [address] [place], [place] PCP - GeneralFamily Medicine11/03/24Team MemberRelationshipSpecialtyStart DateEnd Date [facility] [address] [place], [place] PCP - GeneralFamily Medicine11/03/24Team MemberRelationshipSpecialtyStart DateEnd Date Andres Caalyssa PCP - [facility] [place] [facility]02/20/24Team MemberRelationshipSpecialtyStart DateEnd Date Afua Judy PCP - [facility] [place] [facility]02/20/24Team MemberRelationshipSpecialtyStart DateEnd Date Services, [facility] [address] [place], [place] PCP - GeneralFamily Medicine11/03/24Team MemberRelationshipSpecialtyStart DateEnd Date Judy Caal PCP - [facility]02/20/24 Goals (unrecognized section and content) Goals may be documented in a n alternate section INFORMATION SOURCE (unrecogn ized section and content) DATE CREATED AUTHOR 12/29/2024 [facility] DATE CREATED AUTHOR AUTHOR'S ORGANIZ ATION 01/07/2025 [facility] DATE CREATED AUTHOR AUTHOR'S ORGANIZ ATION 06/19/2025 [facility] DATE CREATED AUTHOR AUTHOR'S ORGANIZ ATION 06/20/2025 [facility] DATE CREATED AUTHOR AUTHOR'S ORGANIZ ATION 06/25/2025 [facility] EPIC FOR RECORDS PERTAINING TO [...] BE BASED ON THE PRIMARY CLINICAL RECORDS. [employer] provides no warranty or guarantee of the accuracy or completeness of information in this document.
== END 2025-07-30 10:55 | disposition home or self-care (01) ==
LOC: FBCO 10:14 → FBC 10:15
PROVIDERS: Visit Provider Obstetrics & Gynecology
DX: O10.913 Unspecified pre-existing hypertension complicating pregnancy, third trimester (principal); Z3A.30 30 weeks gestation of pregnancy
CPT/HCPCS: 59025

== ENCOUNTER 2025-08-02 10:08 | Outpatient (OUT) | payer MEDICAID, SELFPAY ==
--- NOTE | 2025-08-02 10:11 | US_ITS ---
[place] [id number] Patient Name: ELLEN MITCHELL MRN: [id number] date: 1990 Sex: F Assigned Patient Location: Current Patient Location: Accession/Order Number: [id number] Exam Date: 08/02/2025 10:15 Report Date: 08/02/2025 16:49 At the request of: ISRAEL LUNA DO Procedure: US OB BPP w non-stress US OB BPP w non-stress 08/02/2025 11:21 AM SIGNS AND SYMPTOMS: ^10/02/2025 ^H/O PREECLAMPSIA O09.299 COMPARISON: None. TECHNIQUE: Transabdominal sonographic imaging of the gravid uterus FINDINGS: Estimated age: 33 weeks and 3 days heart rate: 155 bpm. Amniotic fluid index: 14.4 cm with the deepest vertical pocket measuring 5.0 cm. Biophysical profile: breathing movements: 2/2 Gross body movements: 2/2 tone: 2/2 Amniotic fluid volume: 2/2 US/US OB BPP w non-stress IMPRESSION: With biophysical profile score: 8/8 Impression dictated by: Raffy Gibson M.D. 08/02/2025 4:49 PM Dictation Location[facility] Electron[facility] authenticated by: [id number] Y Date: 08/02/2025 16:49
--- NOTE | 2025-08-02 10:12 | US_ITS ---
The [address] [address] Patient Name: LELEN MITCHELL MRN: [id number] date: 1990 Sex: F Assigned Patient Location: Current Patient Location: Accession/Order Number: [id number] Exam Date: 08/02/2025 10:15 Report Date: 08/02/2025 16:46 At the request of: ISRAEL LUNA DO Procedure: US OB growth US OB growth 08/02/2025 11:21 AM SIGNS AND SYMPTOMS: ^10/02/2025 ^H/O PREECLAMPSIA O09.299 COMPARISON: None. TECHNIQUE: Limited pelvic ultrasound using transvesical sonography. FINDINGS: An intrauterine is identified. The fetus has an estimated gestational age of 33 weeks and 3 days. A heart rate is identified at 155 bpm. A normal amount of amniotic fluid is present. The amniotic fluid index is 14.4 cm. The largest vertical pocket measures 5.0 cm. There is no evidence for placenta previa or subchorionic hemorrhage. Estimated weight is 1 lb. 7 oz. Pelvic survey reveals no gross abnormalities. US/US OB growth IMPRESSION: Single live IUP with an estimated gestational age of 33 weeks and 3 days with a normal heart rate. Impression dictated by: Raffy Gibson M.D. 08/02/2025 4:46 PM Dictation Location: [place] [address] Electronically authenticated by: [id number] Y Date: 08/02/2025 16:46
[2025-08-02 10:45] VITALS: BP 120/75; PULSE 83
== END 2025-08-02 11:07 | disposition home or self-care (01) ==
LOC: US 10:08 → FBC 10:10
PROVIDERS: Visit Provider Obstetrics & Gynecology
DX: O16.3 Unspecified maternal hypertension, third trimester (principal); O09.293 Supervision of pregnancy with other poor reproductive or obstetric history, third trimester; Z3A.33 33 weeks gestation of pregnancy
CPT/HCPCS: 76816; 76818

== ENCOUNTER 2025-08-06 09:54 | Outpatient (OUT) | payer MEDICAID, SELFPAY ==
--- OUTSIDE RECORDS SUMMARY | 2024-05-14 08:30 | XMS_ITS ---
Author Organization [facility] vices Address [address] [place], [place] [address] Care Team Providers Care Starch Cooker Name Role Phone Sabiha Aviles Primary Care Provider REASON FOR VISIT 3 mo Vit D Social History Sex Assigned At : Social History Observation Description Sex Assigned At Female Encounters Encounter Location Date Provider Diagnosis [address] [id number] 05/14 Sabiha Aviles Plan Of Treatment Next Appt Details Provider Name:Judy Yepez , 08/20/2025 01:15:00 PM, [address] [place], [place], [phone], Progress Notes * Chayo RAMIRESDOB: 2 (35 yo F)Acc No.[id number]:05/14/2024 Medical Note Patient: Trent murphy Chayo Lockwood :?Sabiha AvilesDOB:1990???Age:34 Y???Sex: FemaleDate:05/14/2024hone:[phone]:[address] [facility], [address], [place], [place] Subjective: * Chief Complaints: * 3 mo Vit D * Electronic signature of THEA Ward on 08/06/2025 at 08:28 AM ESTSign off status: Pending * Provider: Jill Aviles Date: 0 05/14/2024 Generated for Printing/Faxing/eTransmitting on:?08/06/2025 08:28 AM EST
--- OUTSIDE RECORDS SUMMARY | 2024-05-24 10:00 | XMS_ITS ---
Author Organization [facility] vices Address [address] [place], [place] [address] Care Team Providers Care Lead Ramp Service Man Name Role Phone Sabiha Aviles Primary Care Provider [phone] Noelle Chris Unavailable [phone] REASON FOR VISIT 3 mo Vit D Social History Sex Assigned At : Social History Observation Description Sex Assigned At Female Encounters Encounter Location Date Provider Diagnosis Main [address] [place], [place] [phone] 05/24/2024 Noelle Chris Plan Of Treatment Next Appt Details Provider Name:Judy Yepez , 08/20/2025 01:15:00 PM, [address] [place], [place], [phone], Progress Notes * Chayo RAMIRESDOB: 2 (35 yo F)Acc No.[id number]:05/24/2024 Medical Note Patient: Trent murphy Chayo Lockwood :?DANA PerezCDOB:1990???Age:34 Y???Sex:FemaleDate:05/24/2024hone:[phone]:[address] [facility], [address], [place], [place]Gxi:Sabiha Aviles Subjective: * Chief Complaints: * 3 mo Vit D Billing Information: * Procedure Codes: * Electronic signature of FABI Perez on 08/06/2025 at 08:28 AM EST Sign off status: Pending * Provider: FABI Acevedo Date: Generated for Printing/Faxing/eTransmitting on:?08/06/2025 08:28 AM EST
--- OUTSIDE RECORDS SUMMARY | 2024-06-25 10:00 | XMS_ITS ---
Author Organization [facility] vices Address [address] [place], [place] [address] Care Team Providers Care Employment Consultant Name Role Phone Sabiha Aviles Primary Care Provider [phone] REASON FOR VISIT 3mo. F/U Vit. D. Social History Sex Assigned At : Social History Observation Description Sex Assigned At Female Encounters Encounter Location Date Provider Diagnosis [address] [id number] 06/25 Sabiha Aviles Plan Of Treatment Next Appt Details Provider Name:Judy Yepez , 08/20/2025 01:15:00 PM, [address] [place], [place], [phone], Progress Notes * Chayo RAMIRESDOB: 2 (35 yo F)Acc No.[id number]:06/25/2024 Medical Note Patient: Trent murphy Chayo Lockwood :?Sabiha AvilesDOB:1990???Age:34 Y???Sex: FemaleDate:06/25/2024hone:[phone]:[address] [place] [address], [address] [facility], [place], [place] Subjective: * Chief Complaints: * 3 mo. F/U Vit. D. Billing Information: * Procedure Codes: * Electronic signature of THEA Ward on 08/06/2025 at 08:28 AM ESTSign off status: Pending * Provider: Jill Aviles Date: 08/25/2023 Generated for Printing/Faxing/eTransmitting on:?08/06/2025 08:28 AM EST
--- OUTSIDE RECORDS SUMMARY | 2025-03-05 08:15 | XMS_ITS ---
Author Organization [facility] vices Address [address] [place], [place] [phone] Care Team Providers Care Sharemilker Name Role Phone Sabiha Aviles Primary Care Provider REASON FOR VISIT 3m depression, anxiety Social History Sex Assigned At : Social History Observation Description Sex Assigned At Female Encounters Encounter Location Date Provider Diagnosis East [address] [place] [phone] 03/05 Sabiha Aviles Plan Of Treatment Next Appt Details Provider Name:Judy Yepez , 08/20/2025 01:15:00 PM, [address] [place], [place], [phone], Progress Notes * Chayo RAMIRESDOB: 2 (35 yo F)Acc No.[id number]:03/05/2025 Medical Note Patient: Trent murphy Chayo Lockwood :?Sabiha AvilesDOB:1990???Age:34 Y???Sex: FemaleDate:03/05/2025Phone:[phone]:[address] [facility], [address], [place], [phone] Subjective: * Chief Complaints: * 3 m depression, anxiety * Electronic signature of THEA Ward on 08/06/2025 at 08:28 AM ESTSign off status: Pending * Provider: Jill Aviles Date: 0 03/05/2025 Generated for Printing/Faxing/eTransmitting on:?08/06/2025 08:28 AM EST
--- OUTSIDE RECORDS SUMMARY | 2025-05-20 08:15 | XMS_ITS ---
Author Organization [facility] Address [address] [place], [place] [address] Care Team Providers Care Personal Computer Network Analyst Name Role Phone Sabiha Aviles Primary Care Provider Noelle Chris Unavailable REASON FOR VISIT depression Social History Sex Assigned At : Social History Observation Description Sex Assigned At Female Encounters Encounter Location Date Provider Diagnosis Main [address] [place], [place] [id number] 05/20/2025 Noelle Chris Plan Of Treatment Next Appt Details Provider Name:Judy Yepze , 08/20/2025 01:15:00 PM, [address] [place], [place], [phone], Progress Notes * Chayo RAMIRESDOB: 2 (35 yo F)Acc No.[id number]:05/20/2025 Medical Note Patient: Trent murphy Chayo [place] :?DANA PerezCDOB:1990???Age:35 Y???Sex:FemaleDate:05/20/2025Phone:[phone]:[address] [facility], [address] [facility], [facility]Nsz:Sabiha Aviles Subjective: * Chief Complaints: * D epression Billing Information: * Procedure Codes: * Electronic signature of FABI Perez on 08/06/2025 at 08:28 AM EST Sign off status: Pending * Provider: FABI Acevedo Date: 0 05/20/2025 Generated for Printing/Faxing/eTransmitting on:?08/06/2025 08:28 AM EST
--- OUTSIDE RECORDS SUMMARY | 2025-07-24 11:20 | XMS_ITS | Encounter Summary ---
Author Organization [facility] Address [address] [place] [address] Care Team Providers Care Cloth Opener Hand Name Role Phone Judy Caal Unavailable Unavailable Reason for Visit * ReasonCommentsRoutine Visit Encounter Details DateTypeDepartmentCare Team (Latest Contact Info)Woffxriipht20/03/2025 11:20 AM ESTRoutine [facility] [address] [place] [id number] Caesar Broderick DO [address] [place] [address] Third trimester ([facility]); 30 weeks gestation of ([facility]) Social History Tobacco UseTypesPacks/DayYears UsedDateSmoking Tobacco: NeverSmokeless Tobacco: Never Tobacco Cessation:Counseling Given: Not Answered Alcohol UseStandard Drinks/WeekCommentsNever0 (1 standard drink = 0.6 oz pure alcohol)PHQ-2AnswerDate RecordedPatient Health Questionnaire-2 Cgjgv42609/01/2024 Estimated Date of UlusztobKylkfxweUhm04/11/2026ased on last menstrual period of 12/26/2024Sex and Gender InformationValueDate RecordedSex Assigned at BirthNot on fileLegal CwqYuaxsq26/06/2024 9:48 AM EDTGender IdentityNot on file Sexual OrientationNot on fileTravel HistoryTravel StartTravel EndPen[place] documented as of this encounter Last Filed Vital Signs Vital SignReadingTime TakenCommentsBlood Tixkxfts047/7412/10/2024 11:31 AM EST Pulse--Temperature--Respiratory Rate--Oxygen Saturation--Inhaled Oxygen Concentration--Mlyaxj580 kg (289 lb)07/24/2025 11:31 AM ESTHeight--Body Mass Index43.9410 2:39 PM EDTdocumented in this encounter Progress Notes * Tonya Hunt - 07/24/2025 11:20 AM EST Reason for Appointment: Patient ID: Chayo Ramires is a 35 y.o. female who presents for Routine Visit Patient presents today for Return OB appointment. MEDICATIONS Current Outpatient Medications Medication Instructions labetalol (NORMODYNE) 100 mg, Oral, Daily magnesium oxide (Mag-Ox) 400 mg tablet as directed Orally magnesium oxide (Mag-Ox) 400 MG tablet 1 tablet, Daily metFORMIN XR (Glucophage-XR) 500 MG 24 hr tablet Every 24 hours NIFEdipine XL (PROCARDIA XL) 60 mg, Oral, Twice a day (mid-day and evening), Take 1 tablet in the am. Do not crush, chew, or split. Ydjcfexw-Mnm-Ei-FA ( 1 + IRON PO) sertraline (ZOLOFT) 50 mg, Every 24 hours ALLERGIES No Known Allergies PROBLEMS Active Ambulatory Problems Diagnosis Date Noted Fallopian tube disorder 07/30/2024 PCOS (polycystic ovarian syndrome) 07/30/2024 induced hypertension, antepartum ([facility]) 04/25/2025 Vitamin D deficiency 05/23/2025 H/O pre-eclampsia in prior , currently ([facility]) 05/23/2025 Resolved Ambulatory Problems Diagnosis Date Noted No Resolved Ambulatory Problems Past Medical History: Diagnosis Date Female infertility May 2022 Ovarian cyst November 2022 HISTORY PAST MEDICAL HISTORY SOCIAL HISTORY Past Medical History: Diagnosis Date Female infertility May 2022 Ovarian cyst November 2022 Social History Tobacco Use Smoking status: Never Smokeless tobacco: Never Substance Use Topics Alcohol use: Never Drug use: Never FAMILY HISTORY Family History Problem Relation Name Age of Onset Other (htn) Mother Renee Arroyo Rheum arthritis Mother Renee Arroyo Other (HTN) Father Joes Luis Arroyo Diabetes Father Jose Luis Arroyo Other (epilepsy) Brother Pancreatic cancer Maternal Grandfather Mack Robles Cancer Maternal Grandfather Mack Robles Heart failure Father's Brother Chacorta Arroyo Heart failure Father's Brother Chacorta Arroyo Heart failure Father's Brother Chacorta Arroyo Heart failure Father's Brother Chacorta Arroyo SURGICAL HISTORY Past Surgical History: Procedure Laterality [...] Exam Constitutional: Appearance: Normal appearance. She is normal weight. HENT: Head: Normocephalic. Cardiovascular: Rate and Rhythm: Normal rate. Pulses: Normal pulses. Pulmonary: Effort: Pulmonary effort is normal. Breath sounds: Normal breath sounds. Abdominal: Palpations: Abdomen is soft. Musculoskeletal: General: Normal range of motion. Neurological: General: No focal deficit present. Mental Status: She is alert and oriented to person, place, and time. Psychiatric: Mood and Affect: Mood normal. Behavior: Behavior normal. Thought Content: Thought content normal. Judgment: Judgment normal. Vitals and nursing note reviewed. Vitals: Estimated body mass index is 43.5 kg/m?? as calculated from the following: Height as of 06/11/24: 5' 8 . Weight as of 07/09/25: 286 lb 1.9 oz. BP: Patient's last menstrual period was 12/26/2024. ASSESSMENT & PLAN ICD-10-CM 1. Third trimester ([facility]) Z34.93 2. 30 weeks gestation of ([facility]) Z3A.30 Assessment/Plan Return OB: Patient presents today for a routine obstetrics appointment. Patient is currently 30w0d . Patient states she is doing well but has complaints of being tired due to current . Patient has verbalizes frequent movement. labor precautions was discussed/given and patient was instructed to perform kick counts three times a day. No orders of the defined types were placed in this encounter. Follow Up: Patient is to return to office in 2 week for routine OB appointment. Documented by Tonya Hunt CST on behalf of: Caesar Broderick DO documented in this encounter Plan of Treatment DateTypeDepartmentCare Team (Latest Contact Info)Fruuescrzjf07/30/2025 1:20 PM ESTRoutine [facility] [address] [place] [address] [place] [address] Bethany Simon PA [address] [place] [address] [place], [place] [id number] 12/16/2025 3:00 PM EDTOffice Visit [facility] [address] [place] [address] [place] [address] Caesar Broderick DO [address] [place], [place] [id number] documented as of this encounter Procedures Procedure NamePriorityDate/TimeAssociated DiagnosisCommentsPOCT URINALYSIS LZVIQYZEZziwykn82/03/2025 11:40 AM EST 30 weeks gestation of ([facility]) documented in this encounter Results * (ABNORMAL) POCT urinalysis dipstick manually resulted (07/24/2025 11:40 AM EST)ComponentValueRef RangeTest MethodAnalysis TimePerformed AtPathologist SignatureColor, UAYellowClarity, UAClearGlucose, UANegativeNegative - 1999(110) ++++ mg/dLBilirubin, UANegativeNegative - 4(70) +++ mg/dLKetones, UA NegativeNegative - 160(16) ++++ mg/dLSpec Grav, UA1.0201 - 1.03Blood, UA NegativeNegative - 50 Surjit/mcLpH, UA6.05 - 9Protein, UATraceNegative - 2000(20) ++++ mg/dLUrobilinogen, UA1.00.2 - 12 mg/dLLeukocytes, UANegativeNegative - 500+++ Kaleigh/mcLNitrite, UANegativeNegative - PositiveSpecimen (Source) Anatomical Location / LateralityCollection Method / VolumeCollection Time Received ClxoOsiit27/03/2025 11:40 AM EST Narrative Authorizing ProviderResult TypeResult StatusCorey Davie DOPOINT OF CARE TEST ENTER/EDIT ORDERABLESFinal Result documented in this encounter Visit Diagnoses Diagnosis Third trimester ([facility]) state, incidental 30 weeks gestation of ([facility]) documented in this encounter Care Teams Team MemberRelationshipSpecialtyStart DateEnd Date Judy Caal PCP - [facility]02/20/24documented as of this encounter
--- OUTSIDE RECORDS SUMMARY | 2025-07-30 14:00 | XMS_ITS | Encounter Summary ---
Author Organization [facility] tem Address [id number] [address] [place] [address] Care Team Providers Care Mosaic Tiler Name Role Phone Services, [facility] Primary Care Provider Reason for Visit * ReasonCommentsCHTNbmi Encounter Details DateTypeDepartmentCare Team (Latest Contact Info)Znyccgkegwn29/09/2025 2:00 PM ESTOffice Visit Maternal- Medicine at [facility] [address] [place] [phone] Sheila Cruz MD [address] [facility] 1st [place] [address] Chronic hypertension affecting (Primary Dx); Anxiety disorder affecting , antepartum; Severe obesity due to excess calories affecting , antepartum ([facility]); Acute palmoplantar pustular psoriasis; Depression affecting ; 30 weeks gestation of Social History Tobacco UseTypesPacks/DayYears UsedDateSmoking Tobacco: NeverSmokeless Tobacco: NeverAlcohol UseStandard Drinks/WeekCommentsNot Currently0 (1 standard drink = 0.6 oz pure alcohol)AUDIT-CAnswerDate RecordedFrequency of Alcohol Consumption Not on file07/30/2025Q2: How many drinks containing alcohol do you have on a typical day when you are drinking?Patient does not drink07/30/2025Frequency of Binge DrinkingNot on file07/30/2025Hunger ScreeningAnswerDate RecordedWithin the past 12 months we worried whether our food would run out before we got money to buy more.Never True07/30/2025Within the past 12 months the food we bought just didn't last and we didn't have money to get more.Never True07/30/2025 Estimated Date of BrxajmhiOgwjdjirAlw55/11/2026ased on last menstrual period of 12/26/2024Sex and Gender InformationValueDate RecordedSex Assigned at BirthNot on fileLegal EcuIhmmup16/09/2023 2:11 PM ESTGender IdentityNot on fileSexual OrientationNot on fileTravel HistoryTravel StartTravel NqjDhevmpnbkibv72/25/2025 07/20/2025documented as of this encounter Last Filed Vital Signs Vital SignReadingTime TakenCommentsBlood Uydvldsy069/8707/30/2025 1:48 PM EST Jwinn339007/30/2025 1:48 PM ESTTemperature--Respiratory Rate--Oxygen Saturation-- Inhaled Oxygen Concentration--Mmaope999.9 kg (290 lb 12.8 oz)07/30/2025 1:48 PM ESTHeight--Body Mass Index44.23005/17/2025 7:51 AM EDTdocumented in this encounter Functional Status documented as of this encounter Progress Notes * Denita Franklin MA - 07/30/2025 2:00 PM EST Headache/epigastric pain/blurry vision/swelling? no Cramping/contractions? no Spotting or vaginal bleeding? no Loss or gush of fluid like your water may have broken? no Recent ER visits or hospitalizations? no Any concerns that you would like me to mention to the provider today? no * Sheila Cruz MD - 07/30/2025 2:00 PM EST REASON FOR OFFICE VISIT: CHTN HISTORY OF PRESENT ILLNESS: Chayo Ramires is a pleasant 35 y.o. at 30w6d due on Estimated Date of Delivery: 10/02/25. [...] cream Anxiety and depresion, compliant with zoloft 75mg daily Abnormal timed GCT, nl 3hr GTT She reports that pruritus of hands has improved with cortisone cream. She denies headaches, vision changes, nausea, vomiting, right upper quadrant or epigastric pain, SOB or chest pain. She denies contractions, vaginal bleeding, leaking of fluid. She reports good fetalmovement. Patient reports that anxiety is increasing in the last few weeks. Aneuploidy screening: low risk cell free DNA Carrier screening: Baby Boy: Peewee Vidales Madi I have reviewed the pertinent available patient [...] mouth in the morning., Disp: , Rfl: labetaloL (NORMODYNE) 100 mg tablet, Take 1 tablet (100 mg total) by mouth in the morning., Disp: ,Rfl: magnesium oxide (MAGOX) 400 mg tablet, Take 1 tablet (400 mg total) by mouth in the morning., Disp:, Rfl: NIFEdipine XL (PROCARDIA XL) 30 mg 24 hr tablet, Take 2 tablets (60 mg total) by mouth in the morning and at bedtime., Disp: 60 tablet, Rfl: 2 115/iron/folic acid ( 19 ORAL), Take 1 tablet by mouth in the morning., Disp: , Rfl: sertraline (ZOLOFT) 25 mg tablet, Take 1 tablet (25 mg total) by mouth in the morning., Disp: 30 tablet, Rfl: 1 sertraline (ZOLOFT) 50 mg tablet, Take 1 tablet (50 mg total) by mouth in the morning., Disp: 30 tablet, Rfl: 1 cholecalciferol 10 mcg (400 unit) tablet, 2 tablets (800 Units total) in the morning. (Patient not taking: Reported on 07/30/2025), Disp: , Rfl: omeprazole (PriLOSEC) 20 mg capsule, Take 1 capsule (20 mg total) by mouth in the morning. (Patientnot taking: Reported on 04/29/2025), Disp: , Rfl: REVIEW OF TESTS AND ULTRASOUND REPORTS: Referral records and epic chart were reviewed Pertinent Ultrasound findings are see formal ultrasound report. PHYSICAL EXAMINATION: BP 143/87 (BP Site: Right Arm, BP Postition: Sitting, BP CUFF SIZE: L (13-17 inches)) Pulse 99 Wt 131.9 kg (290 lb 12.8 oz) LMP 12/26/2024 BMI 44.23 kg/m?? Well-appearing in no distress. Respirations not labored, speaking comfortably in full sentences Bilateral hands with patchy dryness and small vesicular eruptions on fingers Gravid abdomen OVERALL ASSESSMENT -Chayo Ramires is a pleasant 35 y.o. at 30w6d -chronic hypertension affecting -obesity affecting -Acute palmoplantar eczema -anxiety affecting -depression affecting COUNSELING/MEDICAL DECISION-MAKING SUMMARY/RECOMMENDATION: continue daily aspirin for attempted prevention of preeclampsia Continue clobetasol cream as needed for acute palmar plantar eczema Continue Procardia 60 mg b.i.d.. Increase labetalol to 200 mg b.i.d.. monitor BP daily at home, BP cuff prescribed, BP logs to be reviewed with primary OB If needed, initiate labetalol to maintain blood pressure goal of less than 140/90 if she develops severe range BPs in this , I recommend she be admitted to the hospital forevaluation of suspected superimposed preeclampsia. Continue Zoloft to 75 mg daily serial growth ultrasounds every 4 weeks following completion of level 2 anatomy US, through primaryOB testing recommendation- twice weekly NSTs with CHETAN starting at 32 weeks, through primary OB reviewed monitoring for movements reviewed preeclampsia precautions Reviewed diet and healthy eating Anticipate term vaginal delivery at local hospital. Delivery recommended at 37-38wk gestation. If patient deliveries via section, recommend anticoagulation during hospitalization with Lovenox 40 mg b.i.d., per ACOG guidelines, once hemodynamically stable and cleared from anesthesia DISPOSITION: At this point the patient is in complete care of her plant breeder scientist. Patient does have ultrasound and office visit scheduled with us. Thank you for allowing me to participate in the care of Chayo Ramires. If there any questions please do not hesitate to contact us. Total time spent was 35 minutes: Preparing to see the patient (e.g., review of tests) Obtaining and/or reviewing separately obtained history Performing a medically appropriate examination and/or evaluation Counseling and educating the patient/family/caregiver Ordering medications, tests, or procedures Referring and communicating with other health resident care provider (not separately reported) Documenting clinical information in the electronic or other health record Sheila Cruz MD Maternal- Medicine [place] [address] [facility] [address] [place] [id number] This document was created with [employer] technology. Though I make every effort to review the dictation as it is transcribed, on occasion the spoken word can be misinterpreted by the technology leading to inappropriate words, phrases, or sentences. This note is addressed to the requesting provider as a consultation for clinical guidance. Specificmedical abbreviations are occasionally used and those are generally approved by the [place]?Board of?Obstetrics and?Gynecology?as well as?[place]???s abbreviations. The above plan of care was based solely on the diagnoses for which a consultation was requested. ?More frequent testing may be indicated based on her other medical/obstetrical conditions. The management of other or medical conditions is beyond the scope of requested consultation and will c ontinue to be followed by the primary plant breeder scientist or primary care provider. Note to patient: [...] Plan of Treatment DateTypeDepartmentCare Team (Latest Contact Info)Mnlsdabgzah42/15/2026 2:00 PM ESTTelemedicine Maternal- Medicine at [facility] [address] [facility] [place] [phone] Sheila Cruz MD [address] [facility] 1st [place] [address] documented as of this encounter Visit Diagnoses Diagnosis Chronic hypertension affecting - Primary Anxiety disorder affecting , antepartum Severe obesity due to excess calories affecting , antepartum ([facility]) Acute palmoplantar pustular psoriasis Other psoriasis Depression affecting 30 weeks gestation of documented in this encounter Care Teams Team MemberRelationshipSpecialtyStart DateEnd [facility], [facility] [address] [place], [place] PCP - GeneralFamily Medicine11/03/24documented as of this encounter
--- OUTSIDE RECORDS SUMMARY | 2025-08-06 08:40 | XMS_ITS | Encounter Summary ---
Author Organization [facility] Address [address] [place] [address] Care Team Providers Care Occupational Safety And Health Manager Name Role Phone Judy Caal Unavailable Unavailable Reason for Visit * ReasonCommentsRoutine Visit Encounter Details DateTypeDepartmentCare Team (Latest Contact Info)Zrizzehosek29/16/2025 8:40 AM ESTRoutine [facility] [place] [facility] [address] [place] [phone] Caesar Broderick DO [address] [place] [address] 31 weeks gestation of ([facility]); Third trimester ([facility]); H/O pre-eclampsia in prior , currently ([facility]); Vitamin D deficiency Social History Tobacco UseTypesPacks/DayYears UsedDateSmoking Tobacco: NeverSmokeless Tobacco: NeverAlcohol UseStandard Drinks/WeekCommentsNever0 (1 standard drink = 0.6 oz pure alcohol)PHQ-2AnswerDate RecordedPatient Health Questionnaire-2 Score0 07/30/2025Estimated Date of DdtthygbNubsnpvqXxx98/11/2026ased on last menstrual period of 12/26/2024Sex and Gender InformationValueDate RecordedSex Assigned at BirthNot on fileLegal UkzMwtztc77/06/2024 9:48 AM EDTGender Identity Not on fileSexual OrientationNot on fileTravel HistoryTravel StartTravel End Vnjieoyhgziv30documented as of this encounter Last Filed Vital Signs Vital SignReadingTime TakenCommentsBlood Xjxpczql338/6808/06/2025 8:43 AM EST Pulse--Temperature--Respiratory Rate--Oxygen Saturation--Inhaled Oxygen Concentration--Webasv736 kg (291 lb 1.9 oz)08/06/2025 8:43 AM ESTHeight--Body Mass Index44.261 2:39 PM EDTdocumented in this encounter Plan of Treatment DateTypeDepartmentCare Team (Latest Contact Info)Emkpseljouw26/30/2025 1:20 PM ESTRoutine [facility] [address] [place] [address] Bethany Simon PA [address] [place], [place] [address] 12/16/2025 3:00 PM EDTOffice Visit [facility] [address] [place] [address] Caesar Broderick DO [address] [place], [place] [phone] documented as of this encounter Procedures Procedure NamePriorityDate/TimeAssociated DiagnosisCommentsPOCT URINALYSIS WSZKBGSRYreraqi89/16/2025 8:46 AM EST 31 weeks gestation of ([facility]) Third trimester ([facility]) documented in this encounter Results * (ABNORMAL) POCT urinalysis dipstick manually resulted (08/06/2025 8:46 AM EST) ComponentValueRef RangeTest MethodAnalysis TimePerformed AtPathologist SignatureColor, UAYellowClarity, UAClearGlucose, UANegativeNegative - 2000(110) ++++ mg/dLBilirubin, UANegativeNegative - 4(70) +++ mg/dLKetones, UA NegativeNegative - 160(16) ++++ mg/dLSpec Grav, UA1.0201 - 1.03Blood, UA NegativeNegative - 50 Surjit/mcLpH, UA6.05 - 9Protein, UAPositiveNegative - 1999(20) ++++ mg/dLUrobilinogen, UA1.00.2 - 12 mg/dLLeukocytes, UA3+Negative - 500+++ Kaleigh/mcLNitrite, UANegativeNegative - PositiveSpecimen (Source) Anatomical Location / LateralityCollection Method / VolumeCollection Time Received IguxGihqz96/16/2025 8:46 AM EST Narrative Authorizing ProviderResult TypeResult StatusCorey Davie DOPOINT OF CARE TEST ENTER/EDIT ORDERABLESFinal Result documented in this encounter Visit Diagnoses Diagnosis 31 weeks gestation of ([facility]) Third trimester ([facility]) state, incidental H/O pre-eclampsia in prior , currently ([facility]) Vitamin D deficiency documented in this encounter Care Teams Team MemberRelationshipSpecialtyStart DateEnd Date Judy Caal PCP - [facility] 02/20/24documented as of this encounter
--- OUTSIDE RECORDS SUMMARY | 2025-08-06 09:56 | XMS_ITS | Encounter Summary ---
Author Organization [facility] Address [address] [place] [address] Care Team Providers Care Hotel Security Officer Name Role Phone Judy Caal Unavailable Unavailable Encounter Details DateTypeDepartmentCare Team (Latest Contact Info)Zuqfidgloaq43/02/2025linisync Result Encounter [facility] Unsolicited Israel Broderick DO [address] [place], [place] [phone] Social History Tobacco UseTypesPacks/DayYears UsedDateSmoking Tobacco: Never AssessedPHQ-2 AnswerDate RecordedPatient Health Questionnaire-2 Xtfbs84109/01/2024 Estimated Date of JnyrfhynHwaplgyqYgi51/11/2026Based on last menstrual period of 12/26/2024Sex and Gender InformationValueDate RecordedSex Assigned at BirthNot on fileLegal RtwYlvlrk63/06/2024 9:48 AM EDTGender IdentityNot on fileSexual OrientationNot on fileTravel HistoryTravel StartTravel NqaUvnhjajkuwjb71/25/2025 07/20/2025documented as of this encounter Plan of Treatment DateTypeDepartmentCare Team (Latest Contact Info)Qoxgaktmdfa38/30/2025 1:20 PM ESTRoutine [facility] [place] [facility] [address] [place] [address] Bethany Simon PA [address] [place], [place] [address] 12/16/2025 3:00 PM EDTOffice Visit [facility] [place] [facility] [address] [place] [phone] Israel Broderick, DO [address] [address] documented as of this encounter Procedures Procedure NamePriorityDate/TimeAssociated DiagnosisCommentsUS OB BPP W NON-RUHFTO2807/23/2025 10:49 AM EST documented in this encounter Results * US OB BPP W NON-STRESS (07/23/2025 10:49 AM EST)Anatomical Region LateralityModalityOtherSpecimen (Source)Anatomical Location / Laterality Collection Method / VolumeCollection TimeReceived Time07/23/2025 10:49 AM EST Narrative 07/23/2025 10:51 AM EST [facility] ?[address] ? [place] [address] ? Ultrasound Report ? Signed ? Patient: ELLEN RAMIRES ?MR#: [id number] ?? : 1990 ?Acct:[id number] ?? Age/Sex: 35 / F ?ADM Date: 07/23/25 ?? Loc: [facility] ??250-1 ? Attending Dr: Israel Broderick D.O. ? Ordering Physician: Israel Broderick D.O. ?? Date of Service: 07/23/25 ?? Procedure(s): US OB BPP w non-stress ?? Accession Number(s): [id number] ? cc: Israel Broderick D.O.; Judy Yepez CUSTOMER SERVICE RECEPTIONIST ? [facility] ? [address] ? [place] [address] ? Patient Name: ?? ELLEN RAMIRES ? MRN: [id number] ? date: 1990 ?Sex: F ?? Assigned Patient Location: [facility] ?? Current Patient Location: [place] ?? Accession/Order Number: [id number] ?? Exam Date: 07/23/2025 ??10:04 ?Report Date: 07/23/2025 ??10:49 ? At the request of: ?? ISRAEL ??DAVIE ??DO ? Procedure: ??US OB BPP w non-stress ? BIOPHYSICAL PROFILE: ? CLINICAL INFORMATION: HISTORY OF PRE ECLAMPSIA ? COMPARISON: 07/12/2025 ? There is a single live intrauterine gestation in cephalic presentation. ??The ?? reported gestational age is 29 weeks 6 days. ??The heart rate measures ?? 155 beats per minute. ? FINDINGS: ? TONE: 1 or more episodes of activity extension and flexion of ?? extremity or opening and closing of the hand ?[Y] ? 2/2 ?? GROSS BODY MOVEMENTS: 3 or more discrete body or limb movements ?[Y] ? 2/2 ?? BREATHING MOVEMENTS: 1 or more episodes of breathing lasting at ?? least 30 seconds ? [Y] ? 2/2 ?? CHETAN: A single deepest vertical pocket of amniotic fluid greater than 2 cm ? [Y] ? 2/2 ?CHETAN: 13.4 cm ? Total score: ? 8/8 ? US/US OB BPP w non-stress ?? IMPRESSION: ? NORMAL BIOPHYSICAL PROFILE ? Impression dictated by: Kita Florentino M.D. ??07/23/2025 10:49 AM ? Dictation Location: RADIO-PC-02 ? Electronically authenticated by: [id number] ??Y ?? Date: 07/23/2025 ??10:49 ? Dictated By: ?Kita Florentino M.D. ? Signed By: ?12/02/25 1051 ? DD/ 1049 ? TD/TT: ? [employer]room Foundry Laborer: Procedure Note Radiology, Radiologist, - 07/23/2025 [place] [address] Ultrasound Report Signed Patient: ELLEN RAMIRES JMR#: [id number] : 1990Acct:[id number] Age/Sex: 35 / FADM Date: 07/23/25 Loc: [facility] 250- Attending Dr: Israel Broderick D.O. Ordering Physician: Israel Broderick D.O. Date of Service: 07/23/25 Procedure(s): US OB BPP w non-stress Accession Number(s): [id number] cc: Israel Broderick D.O.; Judy Yepez NP The [address] [address] Patient Name: ELLEN RAMIRES MRN: [id number] date: 1990 Sex: F Assigned Patient Location: [facility] Current Patient Location: [place] Accession/Order Number: [id number] Exam Date: 07/23/2025 10:04 Report Date: 07/23/2025 10:49 At the request of: ISRAEL DAVIE DO Procedure: US OB BPP w non-stress BIOPHYSICAL PROFILE: CLINICAL INFORMATION: HISTORY OF PRE ECLAMPSIA COMPARISON: 07/12/2025 There is a single live intrauterine gestation in cephalic presentation.The reported gestational age is 29 weeks 6 days. The heart ratemeasures 155 beats per minute. FINDINGS: TONE: 1 or more episodes of activity extension and flexion of extremity or opening and closing of the hand [Y] 2/2 GROSS BODY MOVEMENTS: 3 or more discrete body or limb movements [Y] 2/2 BREATHING MOVEMENTS: 1 or more episodes of breathing lastingat least 30 seconds [Y] 2/2 CHETAN: A single deepest vertical pocket of amniotic fluid greater than 2 cm [Y] 2/2 CHETAN: 13.4 cm Total score: 8/8 US/US OB BPP w non-stress IMPRESSION: NORMAL BIOPHYSICAL PROFILE Impression dictated by: Kita Florentino M.D. 07/23/2025 10:49 AM Dictation Location: [place] [address] Electronically authenticated by: [id number] Y Date: 0:49 Dictated By: Kita Florentino M.D. Signed By:07/23/25 1051 DD/ 1049 TD/TT: [employer] Laborer: Authorizing ProviderResult TypeResult StatusCorey Davie DOCLINISYNC IMAGINGFinal Result documented in this encounter Visit Diagnoses Not on filedocumented in this encounter Care Teams Team MemberRelationshipSpecialtyStart DateEnd Date Judy Caal PCP - [facility]02/20/24documented as of this encounter
--- OUTSIDE RECORDS SUMMARY | 2025-08-06 09:56 | XMS_ITS | Encounter Summary ---
Author Organization [facility] Address [address] [facility] [place] [address] Care Team Providers Care Senior Bookkeeper Name Role Phone Judy Caal Unavailable Unavailable Encounter Details DateTypeDepartmentCare Team (Latest Contact Info)Gasctuptjhy56/02/2025Travel Social History Tobacco UseTypesPacks/DayYears UsedDateSmoking Tobacco: Never AssessedPHQ-2 AnswerDate RecordedPatient Health Questionnaire-2 Oqsry74809/01/2024 Estimated Date of NkbijczaPbvoxrmlTcg86/11/2026Based on last menstrual period of 12/26/2024Sex and Gender InformationValueDate RecordedSex Assigned at BirthNot on fileLegal FkeRfyhak37/06/2024 9:48 AM EDTGender IdentityNot on fileSexual OrientationNot on fileTravel HistoryTravel StartTravel OorMwvjobslarhv26/25/2025 07/20/2025documented as of this encounter Plan of Treatment DateTypeDepartmentCare Team (Latest Contact Info)Reqxevwpxel46/30/2025 1:20 PM ESTRoutine [facility] [address] [place] [address] Bethany Simon PA [address] [place], [place] [address] 12/16/2025 3:00 PM EDTOffice Visit [facility] [address] [place] [address] Caesar Broderick DO [address] [place] [address] documented as of this encounter Visit Diagnoses Not on filedocumented in this encounter Care Teams Team MemberRelationshipSpecialtyStart DateEnd Date Judy Caal PCP - [facility]02/20/24documented as of this encounter
--- OUTSIDE RECORDS SUMMARY | 2025-08-06 09:56 | XMS_ITS | Encounter Summary ---
Author Organization [facility] Address [address] [place] [address] Care Team Providers Care Administration Clerk Name Role Phone Judy Caal Unavailable Unavailable Encounter Details DateTypeDepartmentCare Team (Latest Contact Info)Phlccdczeuv09/03/2025amboo flowsheet [facility] [address] [place] [address] Caesar Broderick DO [address] [place] [address] Social History Tobacco UseTypesPacks/DayYears UsedDateSmoking Tobacco: NeverSmokeless Tobacco: NeverAlcohol UseStandard Drinks/WeekCommentsNever0 (1 standard drink = 0.6 oz pure alcohol)PHQ-2AnswerDate RecordedPatient Health Questionnaire-2 Score0 07/02/2025Estimated Date of AgbxxojvKjenajbbXka75/11/2026ased on last menstrual period of 12/26/2024Sex and Gender InformationValueDate RecordedSex Assigned at BirthNot on fileLegal BiaVlpsli48/06/2024 9:48 AM EDTGender Identity Not on fileSexual OrientationNot on fileTravel HistoryTravel StartTravel End Eekoahtezoxf52documented as of this encounter Plan of Treatment DateTypeDepartmentCare Team (Latest Contact Info)Vkyfikjfnfk61/30/2025 1:20 PM ESTRoutine [facility] [address] [place] [address] Bethany Simon PA [address] [place] [address] 12/16/2025 3:00 PM EDTOffice Visit [facility] [place] [facility] [address] [address] Caesar Broderick DO [address] [place], [facility] documented as of this encounter Visit Diagnoses Not on filedocumented in this encounter Care Teams Team MemberRelationshipSpecialtyStart DateEnd Date Judy Caal PCP - [facility]02/20/24documented as of this encounter
--- OUTSIDE RECORDS SUMMARY | 2025-08-06 09:57 | XMS_ITS | Encounter Summary ---
Author Organization [facility] tem Address [id number] [address] [place] [address] Care Team Providers Care Java Software Developer Name Role Phone Services, [facility] Primary Care Provider Encounter Details DateTypeDepartmentCare Team (Latest Contact Info)Dbmfqdjkbhi92/09/2025Telephone Maternal- Medicine at [facility] [address] [place] [phone] Antonina Mcdonough Social History Tobacco UseTypesPacks/DayYears UsedDateSmoking Tobacco: NeverSmokeless [...] to get more.Never True07/30/2025 Estimated Date of OqhaefteRzhacdisAqm69/11/2026ased on last menstrual period of 12/26/2024Sex and Gender InformationValueDate RecordedSex Assigned at BirthNot on fileLegal UjoNajtbt23/04/2023 2:11 PM ESTGender IdentityNot on fileSexual OrientationNot on fileTravel HistoryTravel StartTravel NsfAabesztmktya00/25/2025 07/20/2025documented as of this encounter Functional Status documented as of this encounter Plan of Treatment DateTypeDepartmentCare Team (Latest Contact Info)Agoxwuirbyc13/15/2026 2:00 PM ESTTelemedicine Maternal- Medicine at [facility] [address] [place] [address] Sheila Cruz MD [address] [facility] [address] [place] [address] documented as of this encounter Visit Diagnoses Not on filedocumented in this encounter Care Teams Team MemberRelationshipSpecialtyStholly grove DateEnd Date Services, [facility] [address] [place], [place] PCP - GeneralFamily Medicine11/03/24documented as of this encounter
--- OUTSIDE RECORDS SUMMARY | 2025-08-06 09:57 | XMS_ITS | Encounter Summary ---
Author Organization [facility] Healthcare Address [address] [place] [address] Care Team Providers Care Paint Line Operator Name Role Phone Judy Caal Unavailable Unavailable Encounter Details DateTypeDepartmentCare Team (Latest Contact Info)Qjqmzngtedb89/09/2025Patient Outreach [facility] [address] [place] [phone] Bethany Sheehan LPN [address] [place] [address] Social History Tobacco UseTypesPacks/DayYears UsedDateSmoking Tobacco: NeverSmokeless Tobacco: NeverAlcohol UseStandard Drinks/WeekCommentsNever0 (1 standard drink = 0.6 oz pure alcohol)PHQ-2AnswerDate RecordedPatient Health Questionnaire-2 Score0 07/30/2025Estimated Date of RhoioljxAhaywzwhMfc92/11/2026ased on last menstrual period of 12/26/2024Sex and Gender InformationValueDate RecordedSex Assigned at BirthNot on fileLegal DmgGutich63/06/2024 9:48 AM EDTGender Identity Not on fileSexual OrientationNot on fileTravel HistoryTravel StartTravel End Ycudkmyllkhn91documented as of this encounter Functional Status * Over the past 2 weeks, how often have you been bothered by any of the following problems?QuestionAnswerDate of AssessmentAuthorLittle interest or pleasure in doing thingsNot at all07/30/2025 2:43 PM ESTChapman, Bethany, EVP MARKETING Feeling down, depressed, or hopelessNot at all07/30/2025 2:43 PM Bethany Langford LPNPatient Health Questionnaire-2 Fvixj28809/30/2024 2:43 PM Bethany Langford LPN documented as of this encounter Progress Notes * Bethany Sheehan LPN - 07/30/2025 2:43 PM EST Monthly Outreach. Call to pt. Pt reports she feels baby moving frequently Appetite and sleep are adequate. Bowels are regular. Pt denies any depression or difficulty coping at this time. Pt denies any questions, concerns or needs today as she has OB and MFM following her care. Meds reviewed with pt. Next OB OV 08/06/25. documented in this encounter Plan of Treatment DateTypeDepartmentCare Team (Latest Contact Info)Qtjkztuoiyg82/30/2025 1:20 PM ESTRoutine [facility] [address] [place] [address] Bethany Simon, PA [address] [place], [facility] 12/16/2025 3:00 PM EDTOffice Visit [facility] [address] [place] [address] Caesar Broderick DO [address] [place], [place] [address] documented as of this encounter Visit Diagnoses Not on filedocumented in this encounter Care Teams Team MemberRelationshipSpecialtyStart DateEnd Date Judy Caal PCP - [facility]02/20/24documented as of this encounter
--- OUTSIDE RECORDS SUMMARY | 2025-08-06 09:57 | XMS_ITS | Clinical Summary ---
Author Organization [facility] Address [address] [place] [address] Phone Care Team Providers Care Conformal Pad Former Name Role Phone June Trinidad LPN Unavailable Unavailable Allergies No known active allergies Medications MedicationSigDispense QuantityRefillsLast FilledStart DateEnd DateStatus metFORMIN (Glucophage) 500 mg tablet 1 tablet (500 mg).05/22/2024ctive Social History Tobacco UseTypesPacks/DayYears UsedDateSmoking Tobacco: NeverSmokeless Tobacco: Never Tobacco Cessation:Counseling Given: No Alcohol UseStandard Drinks/WeekCommentsNever0 (1 standard drink = 0.6 oz pure alcohol)PHQ-2AnswerDate RecordedPatient Health Questionnaire-2 Jjajm556 CommentsUnknownSex and Gender InformationValueDate RecordedSex Assigned at BirthNot on fileLegal GtpVmcuoj00/06/2025 12:03 PM ESTGender IdentityNot on fileSexual OrientationNot on file Last Filed Vital Signs Vital SignReadingTime TakenCommentsBlood Gujfceik656/7805 10:52 AM EDT Crwib019901/03/2025 10:52 AM OEDKrbabgqwknw75.6 ??C (97.8 ??F)01/03/2025 10:52 AM EDTRespiratory Rate--Oxygen Saturation--Inhaled Oxygen Concentration--Cymecj488 kg (268 lb 9.6 oz)01/03/2025 10:52 AM PKIDkoopr933.7 cm (5' 8 )01/03/2025 10:52 AM EDTBody Mass Index40.845 10:52 AM EDT Plan of Treatment Health MaintenanceDue DateLast DoneCommentsHIV Vucqapldy1992Lipid Panel 1992MMR Vaccines (1 of 1 - Standard series)1993Hepatitis C Screening 2010Hepatitis B Vaccines (1 of 3 - 19+ 3-dose series)2011HPV/Cotest 2013DTaP/Tdap/Td Vaccines (1 - Tdap)2014HPV Vaccines (1 - 3-dose standard series)2019Influenza Vaccine (#1)2025OVID-19 Vaccine ( - season)2025early Adult Toyjqmlv23/22/229499/ervical Cancer Wacmxxnbw01/21/2028Pap Smear12/10/731416/Zoster Vaccines (1 of 2) 2042HIB VaccinesAged OutNo [...] Ramires TypeRelation to PatientDate of BirthPhone Billing AddressPersonal/FczfqvMzkf1990 [address] [address] [place] [address] * Guarantor: Antoinette Ramires TypeRelation to PatientDate of BirthPhone Billing AddressPersonal/NpaalaZcmz1990 [address] [address] [place] [address] Care Teams Team MemberRelationshipSpecialtyStart DateEnd Date June Trinidad LPN Licensed Practical NurseReproductive Endocrinology and Infertility01/01/25
--- OUTSIDE RECORDS SUMMARY | 2025-08-06 09:57 | XMS_ITS | Encounter Summary ---
Author Organization [facility] Address [address] [place] [address] Care Team Providers Care Foster Care Social Worker Name Role Phone Judy Caal Unavailable Unavailable Encounter Details DateTypeDepartmentCare Team (Latest Contact Info)Wqvcxmfovbv62/12/2025linisync Result Encounter [facility] External Department Unsolicited Israel Broderick DO [address] [address] Social History Tobacco UseTypesPacks/DayYears UsedDateSmoking Tobacco: NeverSmokeless Tobacco: NeverAlcohol UseStandard Drinks/WeekCommentsNever0 (1 standard drink = 0.6 oz pure alcohol)PHQ-2AnswerDate RecordedPatient Health Questionnaire-2 Score0 07/30/2025Estimated Date of RxlbzfzfJgvafexiLtp02/11/2026ased on last menstrual period of 12/26/2024Sex and Gender InformationValueDate RecordedSex Assigned at BirthNot on fileLegal IbkQqawzh16/06/2024 9:48 AM EDTGender Identity Not on fileSexual OrientationNot on fileTravel HistoryTravel StartTravel End Ubrwaadqwoox14documented as of this encounter Plan of Treatment DateTypeDepartmentCare Team (Latest Contact Info)Ljogsxqibyk38/30/2025 1:20 PM ESTRoutine [facility] [place] [facility] [address] [place] [address] Bethany Simon PA [address] [place] [address] 12/16/2025 3:00 PM EDTOffice Visit [facility] [place] [facility] [address] [place] [address] Israel Broderick, DO [address] [address] documented as of this encounter Procedures Procedure NamePriorityDate/TimeAssociated DiagnosisCommentsUS OB GROWTH 08/02/2025 4:46 PM EST documented in this encounter Results * US OB GROWTH (08/02/2025 4:46 PM EST)Anatomical RegionLateralityModalityOther Specimen (Source)Anatomical Location / LateralityCollection Method / Volume Collection TimeReceived Time08/02/2025 4:46 PM EST Narrative 08/02/2025 4:49 PM EST [facility] ?[address] ? [place] [address] ? Ultrasound Report ? Signed ? Patient: ELLEN RAMIRES ?MR#: [id number] ?? : 1990 ?Acct:[id number] ?? Age/Sex: 35 / F ?ADM Date: 08/02/25 ?? Loc: US ? Attending Dr: Israel Broderick D.O. ? Ordering Physician: Israel Broderick D.O. ?? Date of Service: 08/02/25 ?? Procedure(s): US OB growth ?? Accession Number(s): [id number] ? cc: Israel Broderick D.O.; Judy Yepez DISTRIBUTION DISPATCHER ? [facility] ? [address] ? [place] [address] ? Patient Name: ?? ELLEN RAMIRES ? MRN: [id number] ? date: 1990 ?Sex: F ?? Assigned Patient Location: US ?? Current Patient Location: ? Accession/Order Number: [id number] ?? Exam Date: 08/02/2025 ??10:15 ?Report Date: 08/02/2025 ??16:46 ? At the request of: ?? ISRAEL ??CHERYL ??DO ? Procedure: ??US OB growth ? US OB growth ??08/02/2025 11:21 AM ? SIGNS AND SYMPTOMS: ?? 10/02/2025 ?? H/O PREECLAMPSIA O09.299 ? COMPARISON: None. ? TECHNIQUE: Limited pelvic ultrasound using transvesical sonography. ? FINDINGS: ? An intrauterine is identified. ??The fetus has an estimated ?? gestational age of 33 weeks and 3 days. A heart rate is identified at 155 bpm. ?? A normal amount of amniotic fluid is present. ??The amniotic fluid index is ?? 14.4 cm. ??The largest vertical pocket measures 5.0 cm. ??There is no evidence ?? for placenta previa or subchorionic hemorrhage. ??Estimated weight is 1 ?? lb. 7 oz. ? Pelvic survey reveals no gross abnormalities. ? US/US OB growth ?? IMPRESSION: ? Single live IUP with an estimated gestational age of 33 weeks and 3 days with ?? a normal heart rate. ? Impression dictated by: Raffy Gibson M.D. ??08/02/2025 4:46 PM ? Dictation Location: [place] [address] ? Electronically authenticated by: [id number] ??Y ?? Date: 08/02/2025 ??16:46 ? Dictated By: ?Raffy Gibson M.D. ? Signed By: ?08/02/25 1649 ? DD/ ? TD/TT: ? Coin Machine Collector: Procedure Note Radiology, Radiologist, MD - 08/02/2025 [place] [address] Ultrasound Report Signed Patient: ELLEN RAMIRES JMR#: [id number] : 1990Acct:[id number] Age/Sex: 35 / FADM Date: 08/02/25 Loc: US Attending Dr: Israel Broderick D.O. Ordering Physician: Israel Broderick D.O. Date of Service: 08/02/25 Procedure(s): US OB growth Accession Number(s): [id number] cc: Israel Broderick D.O.; Judy Yepez NP The [address] [address] Patient Name: ELLEN RAMIRES MRN: [id number] date: 1990 Sex: F Assigned Patient Location: Current Patient Location: Accession/Order Number: [id number] Exam Date: 08/02/2025 10:15 Report Date: 08/02/2025 16:46 At the request of: ISRAEL BRODERICK DO Procedure: US OB growth US OB growth 08/02/2025 11:21 AM SIGNS AND SYMPTOMS: 10/02/2025 H/O PREECLAMPSIA O09.299 COMPARISON: None. TECHNIQUE: Limited pelvic ultrasound using transvesical sonography. FINDINGS: An intrauterine is identified. The fetus has an estimated gestational age of 33 weeks and 3 days. A heart rate is identified at 155bpm. A normal amount of amniotic fluid is present. The amniotic fluid index is 14.4 cm. The largest vertical pocket measures 5.0 cm. There is noevidence for placenta previa or subchorionic hemorrhage. Estimated weight is1 lb. 7 oz. Pelvic survey reveals no gross abnormalities. US/US OB growth IMPRESSION: Single live IUP with an estimated gestational age of 33 weeks and 3 dayswith a normal heart rate. Impression dictated by: Raffy Gibson M.D. 08/02/2025 4:46 PM Dictation Location: [place] [address] Electronically authenticated by: [id number] Y Date: 6:46 Dictated By: Raffy Gibson M.D. Signed By:08/02/259 DD/ 45 TD/TT: Coin Machine Collector: Authorizing ProviderResult TypeResult StatusCorenitesh Broderick DOCLINISYNC IMAGINGFinal Result documented in this encounter Visit Diagnoses Not on filedocumented in this encounter Care Teams Team MemberRelationshipSpecialtyStart DateEnd Date Judy Caal PCP - [facility]02/20/24documented as of this encounter
--- OUTSIDE RECORDS SUMMARY | 2025-08-06 09:57 | XMS_ITS | Clinical Summary ---
Author Organization [facility] tem Address [facility] [address] [place] [address] Care Team Providers Care Nurse Emergency Name Role Phone Services, [facility] Primary Care Provider Allergies No known [...] mouth in the morning. 30 tablet 5Active labetaloL (NORMODYNE) 100 mg tablet Take 1 tablet (100 mg total) by mouth in the morning.Active Active Problems ProblemNoted DateDiagnosed DateHeart swpgazsvndeb42/23/2024Estimated Date of PagmhzwkEmehadyhCti66/11/2026ased on last menstrual period of 12/26/2024 Encounters DateTypeDepartmentCare TyxoVtvpbcjmwgt92/09/2025 2:00 PM ESTOffice Visit Maternal- Medicine at [address] [address] Yordy Cruz MD Chronic hypertension affecting (Primary Dx); Anxiety disorder affecting , antepartum; Severe obesity due to excess calories affecting , antepartum (CMS-HCC); Acute palmoplantar pustular psoriasis; Depression affecting ; 30 weeks gestation of nwdxrlubc66/09/2025Telephone Maternal- Medicine at [address] [address] Antonina Mcdonough 07/28/20254926Lhzjtg45/28/2025 2:00 PM EDTTelemedicine Maternal- Medicine at [address] [address] Yordy Cruz MD Chronic hypertension affecting (Primary Dx); 20 weeks gestation of ; Anxiety disorder affecting , antepartum; Acute palmoplantar pustular psoriasis; Severe obesity due to excess calories affecting , antepartum (CMS-HCC) 06/18/2025 7:48 AM EDT - 06/18/2025 11:59 PM EDTHospital Encounter [facility] [address] [place] [place] [address] Acute palmoplantar pustular psoriasis; Chronic hypertension affecting ; Severe obesity due to excess calories affecting , antepartum (CMS-HCC); Hypertension affecting in second trimester Discharge Disposition: Home06/16/20257022Etvjla55/03/2025Orders Only Maternal- Medicine at [address] [address] Bethany Lundy LPN Acute palmoplantar pustular psoriasis; Chronic hypertension affecting ; Severe obesity due to excess calories affecting , antepartum (CMS-HCC); Hypertension affecting in second vrsmjuzuq27/03/2025Orders Only Maternal- Medicine at [facility] [address] [place] [address] Bethany Lundy LPN Acute palmoplantar pustular psoriasis (Primary Dx); Chronic hypertension affecting ; Severe obesity due to excess calories affecting , antepartum ([facility]-HCC); Hypertension affecting in second qkddasoma21/26/2025 9:00 AM EDTOffice Visit Maternal- Medicine at [facility] [address] [place] [address] Clair Hare MD Hamilton, Ira, MD Chronic hypertension affecting (Primary Dx); Acute palmoplantar pustular psoriasis; Severe obesity due to excess calories affecting , antepartum ([facility]-HCC); 20 weeks gestation of mebqvcgzd38/26/2025 7:12 AM EDT - 05/17/2025 11:59 PM EDT Hospital Encounter [facility] [address] [place] [address] Hypertension affecting in second trimester Discharge Disposition: Home05/17/2025Results Follow-Up Maternal- Medicine at [facility] [address] [place] [address] Yordy Cruz MD B-type natriuretic ptwbgkt7405/17/2025Orders Only Maternal- Medicine at [facility] [address] [place] [address] Bethany Lundy LPN Acute palmoplantar pustular psoriasis (Primary Dx); Chronic hypertension affecting ; Severe obesity due to excess calories affecting , antepartum ([facility]-HCC); Hypertension affecting in second xiuhzrwwx17/24/2025Travelfrom Last 3 Months Family History Medical HistoryRelationNameCommentsEpilepsyBrotherDiabetesFatherHypertension [...] 0.6 oz pure alcohol)AUDIT-CAnswerDate RecordedFrequency of Alcohol ConsumptionNot on file07/30/2025Q2: How many drinks containing alcohol [...] to get more.Never True07/30/2025 Estimated Date of EvdclcyzOpxbuvtuAqy68/11/2026ased on last menstrual period of 12/26/2024Sex and Gender InformationValueDate RecordedSex Assigned at BirthNot on fileLegal UziVlubtw97/09/2023 2:11 PM ESTGender IdentityNot on fileSexual OrientationNot on fileTravel HistoryTravel StartTravel IfnHrytjmejgmdi83/25/2025 07/20/2025 Last Filed Vital Signs Vital SignReadingTime TakenCommentsBlood Hvlgyvhq760/8707/30/2025 1:48 PM EST Cirps069607/30/2025 1:48 PM ZIKPnpknqpzyey84.1 ??C (98.7 ??F)04/29/2025 6:26 PM EDTRespiratory Ndvc675004/29/2025 6:26 PM EDTOxygen Vfzumzdqvy33%04/29/2025 6:26 PM EDTInhaled Oxygen Concentration--Fubqza648.9 kg (290 lb 12.8 oz)07/30/2025 1:48 PM VIFSytmwd048.7 cm (5' 7.99 )05/17/2025 7:51 AM EDTBody Mass Index44.23 05/17/2025 7:51 AM EDT Plan of Treatment DateTypeDepartmentCare Team (Latest Contact Info)Nhycsfbdesb28/15/2026 2:00 PM ESTTelemedicine Maternal- Medicine at [facility] [address] [place] [address] Yordy Cruz MD [address] [facility] 1[address] [place] [address] Health MaintenanceDue DateLast DoneCommentsDepression Exoxeamzg17/29/2004Adult BMI Follow Up Plan2010DTaP,Tdap and Td Vaccines (1 - Tdap)2011 Influenza Qxtkqbj6404/22/2025RSV ( or age 60+ yrs) (1 - Risk 1- dose series)08/07/2025dult BMI Tenxnbjdq18Tobacco Screening /04/2025Pap Smear/, 11/23/2022, 11/23/2022, Additional history exists Medical Devices Not on file Procedures Procedure NamePriorityDate/TimeAssociated DiagnosisCommentsUS [facility], 1 MSXOMKpleslj93/28/2025 9:09 AM EDT 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 Severe obesity due to excess calories affecting , antepartum ([facility]-HCC) Hypertension affecting in second trimester B-TYPE NATRIURETIC YGNOTMNTmveqfd02/26/2025 9:54 AM EDT Chronic hypertension affecting 20 weeks gestation of [facility] COMPREHENSIVE ANATOMIC KERJXJThuuyqg12/26/2025 9:10 AM EDT Hypertension affecting in second trimester UNLISTED LAB ZMHCLpzoyfl55/ 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 Severe obesity due to excess calories affecting , antepartum ([facility]-HCC) Hypertension affecting in second trimester PAP DWZQMOgqbaov50/04/2023 5:20 AM EDT Encounter for screening for malignant neoplasm of cervix Encounter for screening for human papillomavirus (HPV) from Last 3 Months or Most Recently Relevant to Health Maintenance Results * [facility] OB FOLLOW-UP, 1 FETUS (06/18/2025 9:09 AM EDT) Only the most recent of2 resultswithin the time period is included. Anatomical RegionLateralityModalityOB-GYNUltrasoundSpecimen (Source)Anatomical Location / LateralityCollection Method / VolumeCollection TimeReceived Time 06/18/2025 8:05 AM EDT Narrative 06/18/2025 9:41 AM EDT NAME: ??PAULA HUGHES : 1990 SEX: F Accession Number: [id number] ORDERING PHYSICIAN: YORDY CRUZ REFERRING PHYSICIAN: ISRAEL LUNA Coding Procedures ? 87272: Ultrasound, uterus, real time with image documentation, follow up,transabdominal ? approach per fetus Indication Screening for follow-up survey, Anxiety , Depression, Obesity in , History of gestationalhypertension, Obesity in , Chronic hypertension affecting . History OB History ? 2. Para 1 ? A3Y6L2A5 Maternal Assessment Physical Exam ??Height 173 cm, [...] (oz) ? 15 oz EFW by: ?Hadlock (CKA-[id number]-FL) Extended Tibia ??37.8 mm 24w 2d 27% Gavino Bingo Floater ? 4.7 mm CM ? 4.4 mm [...] Thorax RVOT view. LVOT view. 3-vessel view. 9-lnddae-lqanfpe view. ? Right lung. Left lung. Abdomen [...] HUGHES : 1990 SEX: F Accession Number: [id number] ORDERING PHYSICIAN: YORDY CRUZ REFERRING PHYSICIAN: ISRAEL LUNA Coding Procedures 70429: Ultrasound, uterus, real time with image documentation, follow up, transabdominal approach per fetus Indication Screening for follow-up survey, Anxiety , Depression, Obesity in , History of gestational hypertension, Obesity in , Chronic hypertension affecting . History OB History 2. Para 1 X1H2E2X6 Maternal Assessment Physical Exam Height 173 cm, [...] EFW (oz) 15 oz EFW by: Hadlock (SDA-JM-TY-FL) Extended Tibia 37.8 mm 24w 2d 27% Gavino Bingo Floater 4.7 mm CM 4.4 mm 8% Nicolaides [...] Thorax RVOT view. LVOT view. 3-vessel view. 1-vxrbwt-nvsdxqqolou. Right lung. Left lung. Abdomen Abdom. wall. [...] as necessary. Authorizing ProviderResult TypeResult Araceli Cruz [facility] ORDERABLES Final Result * B-type natriuretic peptide (05/17/2025 9:54 AM EDT)ComponentValueRef RangeTest MethodAnalysis TimePerformed AtPathologist GrrcauwajTNG67<=100 pg/mL05/17/2025 11:13 AM [facility] LABORATORYSpecimen (Source)Anatomical Location / LateralityCollection Method / VolumeCollection TimeReceived Time BloodVenous blood / UnknownVenipuncture / Aypekki1505/17/2025 9:54 AM EDT 05/17/2025 9:54 AM EDT Narrative Authorizing ProviderResult TypeResult Araceli Cruz [facility] BLOOD ORDERABLES Final ResultPerforming OrganizationAddressCity/State/ZIP CodePhone Number [facility] [address] [place] [address], [place] [phone] * Unlisted Lab Test (05/17/2025)ComponentValueRef RangeTest MethodAnalysis Time Performed AtPathologist SignatureFetal Free Cell Dnalow riskMANUALLY TRANSCRIBED RESULTSSpecimen (Source)Anatomical Location / LateralityCollection Method / VolumeCollection TimeReceived TimeBlood (Arm)05/17/2025 Narrative Authorizing ProviderResult TypeResult [facility] CenterYordy [facility] BLOOD ORDERABLES Final ResultPerforming OrganizationAddressCity/State/ZIP CodePhone Number MANUALLY TRANSCRIBED RESULTS * Pap Smear (11/23/2022 5:20 AM EDT)Specimen (Source)Anatomical Location / LateralityCollection Method / VolumeCollection TimeReceived Time11/23/2022 5:20 AM EDT11/23/2022 5:29 AM EDT Narrative COPATH - 11/24/2022 1:05 PM EDT [facility] ? [address] [facility] [address] [facility] ? [place] [address] ? Gynecologic Cytology Consultation ? Patient Name:SANTHOSH RAMIRESJULISSA LockwoodMeghan:1990 (Age: 32)Gender:FTaken:11/23/2022Reported:11/24/2022hysician(s):Bethany Raymundo CNP ([phone])Copy To: Rec. #:[id number]: #[id number] Final Cytologic Interpretation ThinPrep Pap Test (Cervical): Satisfactory for evaluation. A transformation zone component is present. NEGATIVE FOR INTRAEPITHELIAL LESION OR MALIGNANCY. ?? jja/11/24/2022 Interpretation performed at [facility], [address] [place] [address], License number: [id number]. Electronically Signed Out By ?ZORA Walter(ASCP) Date of Last Menstrual Period: ? (None Given) Other Clinical Conditions: Z12.4 Screening for malignant neoplasm of cervix Z11.51 Screening for HPV Source of Specimen ??ThinPrep Pap Test (Cervical) ? Thin Prep Pap (PLANT RELIABILITY ENGINEER) Fee Code(s): ?? G0145 Authorizing ProviderResult TypeResult StatusBethany Raymundo DESK SERGEANT-BINGO FLOATER PATHOLOGY/CYTOLOGY ORDERABLESFinal ResultPerforming OrganizationAddress City/State/ZIP CodePhone Number COPATH from Last 3 Months or Most Recently Relevant to Health Maintenance Insurance * Guarantor: Ellen Ramires TypeRelation to PatientDate of BirthPhone Billing AddressPersonal/HexcoiVsjn1990 [address] [address] Care Teams Team MemberRelationshipSpecialtyStart DateEnd Date Services, [facility] [address] [place], [place] PCP - GeneralFanew [facility] Medicine11/03/24
--- OUTSIDE RECORDS SUMMARY | 2025-08-06 09:57 | XMS_ITS | Patient Health Record ---
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 Name Role Phone Sabiha Aviles Primary Care Provider [phone] Merary Espino Unavailable [phone] Noelle Chris Unavailable Marleni Judy Unavailable [phone] Allergies No Known Allergies Results Component Value Reference Range Flag Notes Glucose 1 Hour Reviewed date:07/04/2025 12:45:54 PM Interpretation: Performing Lab: Notes/Report: , [facility] Glucose 1 Hour 159 <130 mg/dL H Performing Lab:see noteML - [facility] LBLIPID PANEL WITH REFLEX TO DIRECT LDL Reviewed date:02/08/2025 11:13:42 AM Interpretation: Performing Lab: Notes/Report:OHNJHNNCJIM184650-889 mg/zGBFVEXFOJUEFPR02485-955 mg/dLHVLDL-CHOL, QVXORMYCEF41<30 mg/dLHHDL-CHOL45>=50 mg/dLLLDL-CHOL, FPMGQETTLL42<130 mg/dL ADULT LDL CHOLESTEROL CLASSIFICATION <100mg/dL Optimal [...] risk <7.1 <5.6 high risk >7.1 >5.6 CHOL/HDL3.82.0-4.5COMPREHENSIVE METABOLIC PANEL WITH GFR Reviewed date:02/08/2025 08:56:14 AM Interpretation: Performing Lab: Notes/Report:QLQFKTS8003-473 mg/dMUFU41-57 mg/dLCALCIUM9.48.6-10.5 mg/dL CREATININE, BLOOD0.710.51-1.15 mg/dLeGFR (2020 CKD-EPI)116>59 mL/min/1.73m2 SWLEYZ696511-167 mmol/LPOTASSIUM4.43.5-5.4 mmol/JZMMGNKMU13145-944 mmol/HJD254 18-32 mmol/LANION ZMO610-70 mmol/LT. BILIRUBIN0.2<1.3 mg/dLALK HTCQ6708-240 U/L WIE-CMYG077-75 U/ZKIA-NXOH712-15 U/LT. PROTEIN6.56.0-8.3 g/dLALBUMIN4.23.5-5.2 g/dLCBC NO DIFF Reviewed date:02/08/2025 11:13:49 AM Interpretation: Performing Lab: Notes/Report:WBC13.83.6-11.0 THDS/CMMHRBC4.253.80-5.20 MILL/FHSEZN55.311.9-16.0 G/DLHCT40.035-47 %RDY4164-361 fLMCH31.326.0-33.0 dnPVSX35.332.0-35.0 g/dlRDW12.8 11.2-14.8 %INCBDQQK063589-047 THOUS/CMMTSH + FREE T4 PROFILE Reviewed date:02/08/2025 08:56:14 AM Interpretation: Performing Lab: Notes/Report:TSH1.690.270-4.200 uIU/mL The [employer] [employer] (HUGO) recommends the following reference ranges for TSH levels during : First trimester: 0.1 to 2.5 mIU/L Second trimester: 0.2 to 3.0 mIU/L Third trimester: 0.3 to 3.0 mIU/L FREE T41.120.80-1.90 ng/dLComplete Blood Count Auto Diff Reviewed date:07/07/2025 10:36:45 PM Interpretation: Performing Lab: Notes/Report: , [facility] Blood Count15.34.0-11.0 10 3/uLHRed Blood Count3.77 4.20-5.40 10 6/kSBNxalxxocom47.712.0-16.0 g/vVZBqocjjgdkx73.136.0-48.0 %LMean Corpuscular Rlqere55.181.0-99.0 fLNMean Corpuscular Avtgwrerjb64.026.7-34.0 pgN Mean Corpuscular HGB Conc33.329.9-35.2 g/dLNRed Cell Distribution Width13.011.0- 15.0 %NPlatelet Plxkj633519-415 10 3/uLNMean Platelet Ytkeib73.59.5-13.5 fLN Neutrophils Percent Auto78.143.0-75.0 %HLymphocytes Percent Auto12.920.5-60.0 %L Monocytes Percent Auto4.61.7-12.0 %NEosinophils Percent Auto2.90.9-7.0 %N Basophils Percent Auto0.30.2-2.0 %NImmature Granulocytes Pct Auto1.20.0-0.5 %H Neutrophils Absolute Auto12.01.4-6.5 10 3/uLHLymphocytes Absolute Auto2.01.2-3.8 10 3/uLNMonocytes Absolute Auto0.70.3-0.8 10 3/uLNEosinophils Absolute Auto0.4 0.0-0.7 10 3/uLNBasophils Absolute Auto0.00.0-0.1 10 3/uLNImmature Granulocytes Abs Auto0.180.00-0.03 10 3/uLHPerforming Lab:see noteML - [facility] LBGlucose Tolerance 3 Hour Reviewed date:07/07/2025 10:36:45 PM Interpretation: Performing Lab: Notes/Report: , [facility] GLU FAST 94 (<95) Col: 07/06/25 0809 GLU 1HR 157 (<180) Col: 07/06/25 0917 GLU 2HR 107 (<155) Col: 07/06/25 1012 GLU 3HR 67 (<140) Col: 07/06/25 1120 Performing Lab:see noteML - [facility] LBUS OB BPP w non-stress Reviewed date:08/05/2025 07:01:01 AM Interpretation: Performing Lab: Notes/Report: Source Facility: [facility] [place] [address] [place] [address] Ultrasound Report Signed Patient: ELLEN RAMIRES MR#: [id number] : 1990 Acct:[id number] Age/Sex: 35 / F ADM Date: 08/02/25 Loc: US Attending Dr: Israel Broderick D.O. Ordering Physician: Israel Broderick D.O. Date of Service: 08/02/25 Procedure(s): US OB BPP w non-stress Accession Number(s): [id number] cc: Israel Broderick D.O.; Judy Yepez [place] [address] Patient Name: ELLEN RAMIRES MRN: [id number] date: 1990 Sex: F Assigned Patient Location: Current Patient Location: Accession/Order Number: [id number] Exam Date: 08/02/2025 10:15 Report Date: 08/02/2025 16:49 At the request of: ISRAEL BRODERICK DO Procedure: US OB BPP w non-stress US OB BPP w non-stress 08/02/2025 11:21 AM SIGNS AND SYMPTOMS: 10/02/2025 H/O PREECLAMPSIA O09.299 COMPARISON: None. TECHNIQUE: Transabdominal sonographic imaging of the gravid uterus FINDINGS: Estimated age: 33 weeks and 3 days heart rate: 155 bpm. Amniotic fluid index: 14.4 cm with the deepest vertical pocket measuring 5.0 cm. Biophysical profile: breathing movements: 2/2 Gross body movements: 2/2 tone: 2/2 Amniotic fluid volume: 2/2 US/US OB BPP w non-stress IMPRESSION: With biophysical profile score: 8/8 Impression dictated by: Raffy Gibson M.D. 08/02/2025 4:49 PM Dictation Location: [place] [address] Electronically authenticated by: [id number] Y Date: 08/02/2025 16:49 Dictated By: Raffy Gibson M.D. Signed By: 08/02/251651 DD/ 48 TD/TT: Padded Products Inspector Trimmer:US OB growth Reviewed date:08/05/2025 07:01:01 AM Interpretation: Performing Lab: Notes/Report: Source Facility: [place] [address] Ultrasound Report Signed Patient: ELLEN RAMIRES MR#: [id number] : 1990 Acct:[id number] Age/Sex: 35 / F ADM Date: 08/02/25 Loc: US Attending Dr: Israel Broderick D.O. Ordering Physician: Israel Broderick D.O. Date of Service: 08/02/25 Procedure(s): US OB growth Accession Number(s): [id number] cc: Israel Broderick D.O.; Judy Yepez [place] [address] Patient Name: ELLEN RAMIRES MRN: [id number] date: 1990 Sex: F Assigned Patient Location: Current Patient Location: Accession/Order Number: [id number] Exam Date: 08/02/2025 10:15 Report Date: 08/02/2025 [...] heart rate is identified at 155 bpm. A normal amount of amniotic fluid is present. The amniotic fluid index is 14.4 cm. The largest vertical pocket measures 5.0 cm. There is no evidence for placenta previa or subchorionic hemorrhage. Estimated weight is 1 lb. 7 oz. Pelvic survey reveals no gross abnormalities. US/US OB growth IMPRESSION: Single live IUP with an estimated gestational age of 33 weeks and 3 days with a normal heart rate. Impression dictated by: Raffy Gibson M.D. 08/02/2025 4:46 PM Dictation Location: [place] [address] Electronically authenticated by: [id number] Y Date: 08/02/2025 16:46 Dictated By: Raffy Gibson M.D. Signed By: 08/02/251648 DD/ 45 TD/TT: Padded Products Inspector Trimmer:US OB BPP w non-stress Reviewed date:07/24/2025 09:24:52 AM Interpretation: Performing Lab: Notes/Report: Source Facility: [place] [address] Ultrasound Report Signed Patient: ELLEN RAMIRES MR#: [id number] : 1990 Acct:[id number] Age/Sex: 35 / F ADM Date: 07/23/25 Loc: [place] [address]: Israel Broderick D.O. Ordering Physician: Israel Broderick D.O. Date of Service: 07/23/25 Procedure(s): US OB BPP w non-stress Accession Number(s): [id number] cc: Israel Broderick D.O.; Judy Yepez NP The [place] [address] Patient Name: ELLEN RAMIRES MRN: [id number] date: 1990 Sex: F Assigned Patient Location: [facility] Current Patient Location: US Accession/Order Number: [id number] Exam Date: 07/23/2025 10:04 Report Date: 07/23/2025 10:49 At the request of: ISRAEL BRODERICK DO Procedure: US OB BPP w non-stress BIOPHYSICAL PROFILE: CLINICAL INFORMATION: HISTORY OF PRE ECLAMPSIA COMPARISON: 07/12/2025 There is a single live intrauterine gestation in cephalic presentation. The reported gestational age is 29 weeks 6 days. The heart rate measures 155 beats per minute. FINDINGS: TONE: 1 or more episodes of activity extension and flexion of extremity or opening and closing of the hand [Y] 2/2 GROSS BODY MOVEMENTS: 3 or more discrete body or limb movements [Y] 2/2 BREATHING MOVEMENTS: 1 or more episodes of breathing lasting at least 30 seconds [Y] 2/2 CHETAN: A single deepest vertical pocket of amniotic fluid greater than 2 cm [Y] 2/2 CHETAN: 13.4 cm Total score: 8/8 US/US OB BPP w non-stress IMPRESSION: NORMAL BIOPHYSICAL PROFILE Impression dictated by: Kita Florentino M.D. 07/23/2025 10:49 AM Dictation Location: [place] [address] Electronically authenticated by: [id number] Y Date: 07/23/2025 10:49 Dictated By: Kita Florentino M.D. Signed By: 07/23/25 1051 DD/ 1049 TD/TT: Padded Products Inspector Trimmer:Complete Blood Count Auto Diff Reviewed date:07/04/2025 12:45:54 PM Interpretation: Performing Lab: Notes/Report: [facility] ,White Blood Count17.34.0-11.0 10 3/uLHRed Blood Count3.744.20-5.40 10 6/uLL Ckjayacxbb89.812.0-16.0 g/uKUIymtggotbx47.036.0-48.0 %LMean Corpuscular Volume 93.681.0-99.0 fLNMean Corpuscular Beajuaabzr84.626.7-34.0 pgNMean Corpuscular HGB Conc33.729.9-35.2 g/dLNRed Cell Distribution Width13.111.0-15.0 %NPlatelet Ybxxj949832-404 10 3/uLNMean Platelet Aaksww02.49.5-13.5 fLNNeutrophils Percent Auto84.243.0-75.0 %HLymphocytes Percent Auto10.020.5-60.0 %LMonocytes Percent Auto3.01.7-12.0 %NEosinophils Percent Auto1.60.9-7.0 %NBasophils Percent Auto0.2 0.2-2.0 %NImmature Granulocytes Pct Auto1.00.0-0.5 %HNeutrophils Absolute Auto 14.61.4-6.5 10 3/uLHLymphocytes Absolute Auto1.71.2-3.8 10 3/uLNMonocytes Absolute Auto0.50.3-0.8 10 3/uLNEosinophils Absolute Auto0.30.0-0.7 10 3/uLN Basophils Absolute Auto0.00.0-0.1 10 3/uLNImmature Granulocytes Abs Auto0.18 0.00-0.03 10 3/uLHPerforming Lab:see noteML - [facility] LBVITAMIN D 25 HYDROXY Reviewed date:02/08/2025 09:10:44 AM Interpretation: Performing Lab: Notes/Report:VITAMIN D, 25 PPUWALG93.630.0-100.0 ng/mLL 25-OH VITAMIN D INTERPRETATION Deficiency.... <20.0 ng/ml Insufficiency..20.0-29.0 ng/ml Sufficiency....30.0-100.0 ng/ml Possible Toxicity...>150 ng/ml UNLESS OTHERWISE INDICATED, ALL TESTING PERFORMED AT: [facility] [employer] [employer] [address] [place] [address] WEATHER FORECASTER: BARBARA DASH M.D. CLIA NUMBER [id number] [facility] ACCREDITATION AUID [id number] Creatinine 24 Hour Urine Reviewed date:05/26/2025 02:26:35 PM Interpretation: Performing Lab: Notes/Report: , [facility] Urine Blykbn88.4120.00-300.00 mg/dLNTotal Volume 24 Hour Muakl6310Ahshlfppyj 24 Hour Zfooo7554.30120.00-1800.00 mg/24 hrH Performing Lab:see noteML - [facility] LBTotal Protein 24 Hour Urine Reviewed date:05/26/2025 02:26:35 PM Interpretation: Performing Lab: Notes/Report: [facility] ,Total Protein Urine Random<6.0<=11.9 mg/dLPerforming Lab:see noteML - [facility] LBUS OB growth Reviewed date:07/19/2025 09:17:12 PM Interpretation: Performing Lab: Notes/Report: Source Facility: [facility]-[address] [place] [address] [place] [address] Ultrasound Report Signed with Addterrie Patient: ELLEN RAMIRES MR#: [id number] : 1990 Acct:[id number] Age/Sex: 35 / F ADM Date: 07/12/25 Loc: US Attending Dr: Israel Broderick D.O. Ordering Physician: Israel Broderick D.O. Date of Service: 07/12/25 Procedure(s): US OB growth Accession Number(s): [id number] cc: Israel Broderick D.O.; Judy Yepez SOCIAL PSYCHOLOGIST ADDENDUM [place] [address] This is an addendum 57th percentile for estimated weight. Impression dictated by: Mariusz aMlloy Jr., D.O. 07/17/2025 8:54 AM Dictation Location: [place] [address] Electronically authenticated by: [id number] Y Date: 07/17/2025 08:54 Patient Name: ELLEN RAMIRES MRN: [id number] date: 1990 Sex: F Assigned Patient Location: US Current Patient Location: Accession/Order Number: [id number] Exam Date: 07/12/2025 09:56 Report Date: 07/17/2025 08:54 At the request of: ISRAEL BRODERICK DO Procedure: US OB growth The [place] [address] Patient Name: ELLEN RAMIRES MRN: [id number] date: 1990 Sex: F Assigned Patient Location: US Current Patient Location: [facility] Accession/Order Number: [id number] Exam Date: 07/12/2025 09:56 Report Date: 07/12/2025 [...] g. CHETAN is normal at 12.81 cm. Fetus position is cephalic at time of scanning. Addendum Dictated By: Mariusz Malloy M.D. Addendum Signed By: 07/17/25 0 857 Addendum Cosigned By: DD/ TD/TT: / ADDENDUM US/US OB growth Impression: Single live intrauterine 29 weeks 1 day by anatomic measurements. Appropriate growth. Impression dictated by: Mariusz Malloy Jr., D.OMeghan 07/12/2025 2:57 PM Dictation Location: [employer] Electronically authenticated by: [id number] Y Date: 07/12/2025 14:57 Addendum Dictated By: Mariusz Malloy M.D. Addendum Signed By: 07/17/25 0 857 Addendum Cosigned By: DD/ TD/TT: / [place] [address] Patient Name: ELLEN RAMIRES MRN: [id number] date: 1990 Sex: F Assigned Patient Location: Current Patient Location: [facility] Accession/Order Number: [id number] Exam Date: 07/12/2025 09:56 Report Date: 07/12/2025 [...] g. CHETAN is normal at 12.81 cm. Fetus position is cephalic at time of scanning. US/US OB growth Impression: Single live intrauterine 29 weeks 1 day by anatomic measurements. Appropriate growth. Impression dictated by: Mariusz Malloy Jr., D.O. 07/12/2025 2:57 PM Dictation Location: [place] [address] Electronically authenticated by: [id number] Y Date: 07/12/2025 14:57 Dictated By: Mariusz Malloy M.D. Signed By: 07/12/25 1500 DD/ 1457 TD/TT: Padded Products Inspector Trimmer:US OB BPP w non-stress Reviewed date:07/14/2025 11:11:37 PM Interpretation: Performing Lab: Notes/Report: Source Facility: [place] [address] Ultrasound Report Signed Patient: ELLEN RAMIRES MR#: [id number] : 1990 Acct:[id number] Age/Sex: 35 / F ADM Date: 07/12/25 Loc: US Attending Dr: Israel Broderick D.O. Ordering Physician: Israel Broderick D.O. Date of Service: 07/12/25 Procedure(s): US OB BPP w non-stress Accession Number(s): [id number] cc: Israel Broderick D.O.; Judy Yepez NP [place] [address] Patient Name: ELLEN RAMIRES MRN: [id number] date: 1990 Sex: F Assigned Patient Location: Current Patient Location: [facility] Accession/Order Number: [id number] Exam Date: 07/12/2025 09:56 Report Date: 07/12/2025 14:56 At the request of: ISRAEL BRODERICK DO Procedure: US OB BPP w non-stress Biophysical profile. Reason for exam: History of preeclampsia COMPARISON: None TECHNIQUE: Transabdominal imaging of the gravid uterus was obtained. FINDINGS: The supervising floorperson reports a BPP of 8 out of 8. CHETAN is normal at 12.8 cm. heart rate 159 bpm. US/US OB BPP w non-stress IMPRESSION: BPP 8 out of 8. Impression dictated by: Mariusz Malloy Jr., D.O. 07/12/2025 2:56 PM Dictation Location: [place] [address] Electronically authenticated by: [id number] Y Date: 07/12/2025 14:56 Dictated By: Mariusz Malloy M.D. Signed By: 07/12/258 DD/ 55 TD/TT: Padded Products Inspector Trimmer:ECG 12 lead Reviewed date:06/23/2025 10:27:35 PM Interpretation: Performing Lab: Notes/Report: Source Facility: [place] [address] Electrocardiograph Report Signed Patient: ELLEN RAMIRES MR#: [id number] : 1990 Acct:[id number] Age/Sex: 35 / F ADM Date: 06/20/25 Loc: ER Attending Dr: Ordering Physician: Vince Chadwick Date of Service: 06/20/25 Procedure(s): ECG 12 lead Accession Number(s): [id number] cc: [facility] Test Date: 2025-06-20 Pat Name: ELLEN RAMIRES Department: Room: - Gender: Female Director Of Sales And Marketing: : 1990 Requested By: 1031 Order Number: [id number] Reading MD: RANDOLPH MIXON M.D. Measurements Intervals [place] Rate: 79 P: 43 [place]: 130 QRS: 39 QRSD: 90 T: 8 QT: 398 QTc: 432 Interpretive Statements 1100 Sinus rhythm 4068 Nonspecific Twave abnormality 9130 borderline ECG No previous ECG available for comparison Electronically Signed On 06-21-2025 6:28:32 EDT by RANDOLPH MIXON M.D. Dictated By: RANDOLPH MIXON Signed By: 06/21/25 0629 DD/ 14 TD/TT: Padded Products Inspector Trimmer:EMILE Gomes, reflex to culture Reviewed date:06/23/2025 10:27:35 PM Interpretation: Performing Lab: Notes/Report: , [facility] CenterColor UrineLT. YELLOWYELLOWClarity UrineCLEARCLEARSpecific [place] Urine1.0101.005-1.025pH Urine7.05.0-9.0Protein UrineNEGATIVENEG/TRACE mg/dLGlucose Urine UANEGATIVENEGATIVE mg/dLBilirubin UrineNEGATIVENEGATIVE Ketones UrineNEGATIVENEGATIVE mg/dLBlood UrineNEGATIVENEGATIVENitrite Urine NEGATIVENEGATIVEUrobilinogen Urine0.20.2-1.0 EU/dLLeukocyte Esterase Urine NEGATIVENEGATIVEWBC Urine0-2NONE SEEN #/HPFARBC Urine0-20-2 #/HPFBacteria Urine TRACENONE SEEN #/HPFAMucus UrineNONE SEENNONE SEENSquamous Epithelial Cell Urine FEWNONE/RARE #/LPFACrystals Seen?None SeenNone Seen #/HPFCast Seen?NONE SEENNONE SEEN #/LPFUrine Culture IndicatedNOPerforming Lab:see noteML - [facility] LBBasic Metabolic Panel Reviewed date:06/23/2025 10:27:19 PM Interpretation: Performing Lab: Notes/Report: , [facility] HospitalOsbiultcEcafyz022417-873 mmol/LNPotassium3.33.5-5.1 mmol/LLChloride 86370-944 mmol/LNCarbon Xtnvker12.321.0-32.0 mmol/LNAnion Gap15.8Kbpblhz84881- 106 mg/dLHBlood Urea Nitrogen5.07.0-18.0 mg/dLLCreatinine0.570.55-1.02 mg/dLN Estimated GFR ( Claritza>60>=60 mL/min/1.73m 2Estimated GFR (Non- Meghana>60>=60 mL/min/1.73m 2BUN Creatinine Ratio8.0Yidrkxj6.78.5-10.1 mg/dLN Performing Lab:see note - [facility] LBComplete Blood Count Auto Diff Reviewed date:06/23/2025 10:27:19 PM Interpretation: Performing Lab: Notes/Report: [facility] ,White Blood Count14.64.0-11.0 10 3/uLHRed Blood Count3.694.20-5.40 10 6/uLL Ridjslmucz77.512.0-16.0 g/iYXNmngbcberk63.236.0-48.0 %LMean Corpuscular Volume 92.781.0-99.0 fLNMean Corpuscular Beogqilfnk10.226.7-34.0 pgNMean Corpuscular HGB Conc33.629.9-35.2 g/dLNRed Cell Distribution Width12.911.0-15.0 %NPlatelet Guxbn690065-873 10 3/uLNMean Platelet Zthurx12.49.5-13.5 fLNNeutrophils Percent Auto74.543.0-75.0 %NLymphocytes Percent Auto15.420.5-60.0 %LMonocytes Percent Auto6.71.7-12.0 %NEosinophils Percent Auto1.90.9-7.0 %NBasophils Percent Auto0.3 0.2-2.0 %NImmature Granulocytes Pct Auto1.20.0-0.5 %HNeutrophils Absolute Auto 10.91.4-6.5 10 3/uLHLymphocytes Absolute Auto2.21.2-3.8 10 3/uLNMonocytes Absolute Auto1.00.3-0.8 10 3/uLHEosinophils Absolute Auto0.30.0-0.7 10 3/uLN Basophils Absolute Auto0.00.0-0.1 10 3/uLNImmature Granulocytes Abs Auto0.18 0.00-0.03 10 3/uLHPerforming Lab:see noteML - [facility] LBUA Culture/Micro if Indicated Reviewed date:06/23/2025 10:27:19 PM Interpretation: Performing Lab: Notes/Report: , [facility] UrineLT. YELLOWYELLOWClarity UrineCLEARCLEARSpecific [place] Urine<=1.0051.005-1.025ApH Urine6.05.0-9.0Protein UrineNEGATIVENEG/TRACE mg/dLGlucose Urine SD912LLNKAGII mg/dLABilirubin UrineNEGATIVENEGATIVEKetones UrineNEGATIVENEGATIVE mg/dLBlood UrineNEGATIVENEGATIVENitrite UrineNEGATIVE NEGATIVEUrobilinogen Urine0.20.2-1.0 EU/dLLeukocyte Esterase UrineNEGATIVE NEGATIVEUrine Microscopic IndicatedNOPerforming Lab:see noteML - [facility] LBUA Culture/Micro if Indicated Reviewed date:05/30/2025 09:54:53 AM Interpretation: Performing Lab: Notes/Report: , [facility] CenterColor UrineLT YELLOWYELLOWClarity UrineCLEARCLEARSpecific [place] Urine<=1.0051.005-1.025ApH Urine7.05.0-9.0Protein UrineNEGATIVENEG/TRACE mg/dLGlucose Urine UANEGATIVENEGATIVE mg/dLBilirubin UrineNEGATIVENEGATIVE Ketones UrineNEGATIVENEGATIVE mg/dLBlood UrineNEGATIVENEGATIVENitrite Urine NEGATIVENEGATIVEUrobilinogen Urine0.20.2-1.0 EU/dLLeukocyte Esterase UrineTRACE NEGATIVEAUrine Microscopic IndicatedYESPerforming Lab:see noteML - [facility] LBUrine Microscopic Reviewed date:05/30/2025 09:54:53 AM Interpretation: Performing Lab: Notes/Report: [facility] ,WBC Urine0-2NONE SEEN #/HPFARBC Urine0-20-2 #/HPFBacteria UrineTRACENONE SEEN #/HPFAMucus UrineNONE SEENNONE SEENSquamous Epithelial Cell UrineFEWNONE/RARE #/LPFACrystals Seen?None SeenNone Seen #/HPFCast Seen?NONE SEENNONE SEEN #/LPF Performing Lab:see noteML - [facility] LBAFP, Serum, Open Spina Bifida Reviewed date:05/26/2025 02:17:58 PM Interpretation: Performing Lab: Notes/Report: , [facility] White/ N N N N N 282 1 N 9 2 [id number] LMP N NResultsReport.Test Results:*Screen Negative*.Gest. Age on Collection Date21.1. weeksGestat. Age Based OnLMP. Recalculations are not recommended when gestational dating by LMP and ultrasound are within 10 days. Maternal Age At EDD33.5. yrRaceCaucasian.Vklaqr647. lbsInsulin Dep DiabetesNo. Multiple GestationNo.AFP Value38.2. ng/mLAFP MoM0.85.OSBR Risk 1 [id number]. InterpretationComment. Interpretation: Screen Negative This result is [...] Customer Services to discuss available options. The [employer] [employer] recommends amniocentesis be offered to women age 35 and older. Comment:Comment. Gema Ortez, Ph.D., [facility] Director References: Available Upon Request. Multiples Of Median Cutoffs For AFP Elevations Kumar 2.5 Black 2.8 IDD 2.0 Twins 4.5 Abbreviation Definitions IDD - Insulin Dep Diabetes OSBR - Open Spina Bifida Risk For further inquiries contact [facility] at [phone]. This test was developed and its performance characteristics determined by [facility]. It has not been cleared or approved by the Food and Drug Administration. Performed at: [facility] [place], [place] [id number] Single Resource Boss: Jesus Saleh [facility], Phone: [phone] Performing Lab:[facility]SA[facility] LBUrine Dip Reviewed date:11/12/2024 05:53:24 PM Interpretation: Performing Lab: Notes/Report: Bilirubin-Occult [place]-Ipxoeyu-Qqloesw-ENV-Uzdqwlz-Ts7.0Protein-Specific [place] 1.010ColoryellowAppearanceclearURINALYSIS - REFLEX CULTURE/SENS Reviewed date:11/13/2024 11:59:49 AM Interpretation: Performing Lab: Notes/Report:PH6.55.0-8.0SP GRAVITY1.0061.005-1.030APPEARANCECLEARCLEARCOLOR YELLOWYELLOWPROTEINNEGATIVENEGATIVEGLUCOSENEGATIVENEGATIVEKETONESNEGATIVE NEGATIVEBILIRUBINNEGATIVENEGATIVEOCCULT BLOODNEGATIVENEGATIVELEUKO ESTERNEGATIVE NEGATIVENITRITENEGATIVENEGATIVEUROBILINOGEN0.2<2 mg/dL UNLESS OTHERWISE INDICATED, ALL TESTING PERFORMED AT: [facility] [employer] [employer] [address] [place] [address] WEATHER FORECASTER: BARBARA DASH M.D. 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 Check all that applyI do not have problems meeting my needs Has lack of transportation kept you from medical appointments, meetings, work or from getting things needed for daily living?NoHow often do you see or talk to people that you care about and feel close to? (For example: talkingto friends on the phone, visiting friends or family, going to mormonism or club meetings)More than 5 times a weekpatient entered dataHow stressed are you? Stress is when someone feels tense, nervous, anxious, or can't sleep at nightbecause their mind is troubledQuite a bitpatient entered dataIn the past year have you spent more than 2 nights in a row in a custodial, long term, retirement center, orjuvenile correctional facility?Nopatient entered dataAre you [...] not already ?YesPCMH and UDS Demographics Social InfoQuestionAnswerNotesPriflowers hospitaly [facility] QuestionsDo you have any barriers to learning?Nonepatient entered dataWhat is your preferred method of learning?Doing or practicingpatient entered dataHow often do you need to have someone help you read instructions?Neverpatient entered dataHousehold: Social InfoQuestionAnswerNotesHouseholdNumber of adults in household:1Number of children [...] rid of a hangover?Nopatient entered dataCAGE- AID Qgobd2FraltcowvbtefjEqewguebLnhhkptmOircis:1-2 cups per daypopTobacco Use: Social InfoQuestionAnswerNotesTobacco Use/SmokingTobacco use:nonsmokerpatient entered dataAdditional DetailsCategorySocial InfoOptionsDetailsMiscellaneous: Occupation:works full-timeCulture/Language BarrierNoEducation LevelGrade 7-12 Barriers to LearningNoneLearning PreferenceDoing or practicingHow often do you need to have someone help you read instructionsNeverSafetyPatient feels safe in relationshipsYesDrugs/Alcohol/Caffeine:Do you drink alcohol?No Problems Problem Type SNOMED Code ICD Code Onset Dates Problem Status W/U Status Risk Notes Problem Exercises teaching, guidance, and counseling (531870717) Exercise counseling (Z71.82) ActiveconfirmedProblemMissed period (24639148)Missed period (N92.6)Active confirmedProblemVitamin D deficiency (47352710)Vitamin D deficiency (E55.9) ActiveconfirmedProblemBurning sensation of vagina (finding) (490328198)Vaginal burning (N94.9)ActiveconfirmedProblemAnxiety depression (022044042)Anxiety with depression (F41.8)ActiveconfirmedProblemDietary management surveillance (717036915)Dietary counseling (Z71.3)ActiveconfirmedProblemFemale infertility (4119424)Female fertility problem (N97.9)Activeconfirmed Vital Signs Heart Rate 95 /min 05/21/2025 Robert Shen 05/21/2025 01:17:11 PM EDT > Temperature 98.0 degrees Fahrenheit 05/21/2025 Dayron Banegas 05/21/2025 01:17:11 PM EDT > Respiratory Rate 18 /min 05/21/2025 Dayron Shen 05/21/2025 01:17:11 PM EDT > Height-cm 172.72 cm 05/21/2025 Robert Shen 05/21/2025 01:17:11 PM EDT > Oximetry 99 % 05/21/2025 Ac Ser vando 05/21/2025 01:17:11 PM EDT > Blood pressure diastolic 85 mm Hg 05/21/2025 Dayron Nuñez 05/21/2025 01:17:11 PM EDT > Weight-kg 128.82 kg 05/21/2025 Robert Sheno 05/21/2025 01:17:11 PM EDT > Height 68 in 05/21/2025 Robert Sheno 05/21/2025 01:17:11 PM EDT > Blood pressure systolic 141 mm Hg 05/21/2025 Dayron Banegas 05/21/2025 01:17:11 PM EDT > Weight 284 lbs 05/21/2025 Robert Shen 05/21/2025 01:17:11 PM EDT > BMI 43.18 kg/m2 05/21/2025 Robert Shen 05/21/2025 01:17:11 PM EDT > Encounters Encounter Location Date Provider Diagnosis [address] [id number] 11/06/2024 [facility] Depression with anxi ety F41.8 and Hospital discharge follow-up Z09 [address] [id number] 11/12/2024 [facility] Dysuria R30.[address] [id number] 12/04/2024 [facility] Anxiety with depress ion F41.[address] [id number] 02/05/2025 [facility] Encounter for [facility] examination Z00.00 ; Screening for cardiovascular condition Z13.6 ; Exercise counseling Z71.82 ; Nutritional counseling Z71.3 ; Screening for thyroid disorder Z13.29 and Vitamin D deficiency E55.9 [address] [place], [place] [id number] 05/21/2025 Judy Yepez Anxiety with depress ion F41.8 ; Left otitis media, unspecified otitis media type H66.92 ; 21 weeks gestation of Z3A.21 ; Severe obesity (BMI >= 40) E66.01 and BMI 40.0-44.9, adult Z68.41 [address] [place], [place] [id number] 04/26/2025 Noelle Chris Anxiety with depress ion F41.8 [address] [place], [place] [id number] 06/17/2025 Merary Espino Assessments Encounter Date Diagnosis (ICD Code) Assessment Notes Treatment Notes Treatment Clinical Notes Section Notes 11/06/2024 Depression with anxiety (ICD-10 - F41.8) begin zoloft will start with 25mg and increase to 50mg if needed f.u in 4 weeks or sooner if needed if develop SI, please go to ER or call 911. 11/12/2024Dysuria (ICD-10 - R30.0) urine dip normal in office will send for culture 12/04/2024nxiety with depression (ICD-10 - F41.8) increasing [...] & PRN Continue following w/ OBGYN for weeks gestation of (ICD-10 - Z3A.21)02/05/2025Exercise counseling [...] Name:Judy Yepez , 08/20/2025 01:15:00 PM, [address] [place], [id number], Insurance Providers Payer Name Payer Address Payer Phone Subscriber Number Group Number Insured Name Patient Relationship to Insured Coverage Start Date Coverage End Date [facility] [address] [place] [phone] [id number] Ellen Ramires Self - patient is the insured Medicaid CFC after [address] [place] [id number], Lauren Self - patient is the [id number] 2022 Medical (General) History Medical History History ICD Code anxiety depressionSurgical History Surgery Date(Month/Year) Fowler teeth laparoscopy- endometriosis
--- OUTSIDE RECORDS SUMMARY | 2025-08-06 09:57 | XMS_ITS | Encounter Summary ---
Author Organization [facility] Address [address] [place] [address] Care Team Providers Care Registered Medical Assistant Name Role Phone Judy Caal Unavailable Unavailable Encounter Details DateTypeDepartmentCare Team (Latest Contact Info)Zjuaszcovsx63/16/2025amboo flowsheet [facility] [address] [place] [address] Caesar Broderick DO [address] [facility] [place] [address] Social History Tobacco UseTypesPacks/DayYears UsedDateSmoking Tobacco: NeverSmokeless Tobacco: NeverAlcohol UseStandard Drinks/WeekCommentsNever0 (1 standard drink = 0.6 oz pure alcohol)PHQ-2AnswerDate RecordedPatient Health Questionnaire-2 Score0 07/30/2025Estimated Date of KwdxtjybYfzhdeppOxq48/11/2026ased on last menstrual period of 12/26/2024Sex and Gender InformationValueDate RecordedSex Assigned at BirthNot on fileLegal EjtBepigi21/06/2024 9:48 AM EDTGender Identity Not on fileSexual OrientationNot on fileTravel HistoryTravel StartTravel End Xjszhopvgssl64documented as of this encounter Plan of Treatment DateTypeDepartmentCare Team (Latest Contact Info)Deznckpxcet44/30/2025 1:20 PM ESTRoutine [facility]OM[facility] [address] [place] [address] Bethany Simon PA [address] [place] [address] 12/16/2025 3:00 PM EDTOffice Visit [facility] [address] [facility] [place] [address] Caesar Broderick DO [address] [facility] [place], [facility]11 documented as of this encounter Visit Diagnoses Not on filedocumented in this encounter Care Teams Team MemberRelationshipSpecialtyStart DateEnd Date Judy Caal PCP - [facility]02/20/24documented as of this encounter
--- OUTSIDE RECORDS SUMMARY | 2025-08-06 09:57 | XMS_ITS | Encounter Summary ---
Author Organization [facility] Address [address] [facility] [place] [address] Care Team Providers Care Form Builder Name Role Phone Judy Caal Unavailable Unavailable Encounter Details DateTypeDepartmentCare Team (Latest Contact Info)Qcjhpnnqyil38/15/2025Travel Social History Tobacco UseTypesPacks/DayYears UsedDateSmoking Tobacco: NeverSmokeless Tobacco: NeverAlcohol UseStandard Drinks/WeekCommentsNever0 (1 standard drink = 0.6 oz pure alcohol)PHQ-2AnswerDate RecordedPatient Health Questionnaire-2 Score0 07/30/2025Estimated Date of XsbbmkikXejrrlvtKcn80/11/2026ased on last menstrual period of 12/26/2024Sex and Gender InformationValueDate RecordedSex Assigned at BirthNot on fileLegal PhdNxaiav87/06/2024 9:48 AM EDTGender Identity Not on fileSexual OrientationNot on fileTravel HistoryTravel StartTravel End Qzrapjkrguqr88documented as of this encounter Plan of Treatment DateTypeDepartmentCare Team (Latest Contact Info)Fuectayvrix53/30/2025 1:20 PM ESTRoutine [facility] [address] [facility] [address] [address] Bethany Simon PA [address] [facility] [address] [place], [place] [id number] 12/16/2025 3:00 PM EDTOffice Visit [facility] [address] [place] [address] Caesar Broderick, DO [address] [place] [address] [place] [address] documented as of this encounter Visit Diagnoses Not on filedocumented in this encounter Care Teams Team MemberRelationshipSpecialtyStart DateEnd Date Judy Caal PCP - [facility]02/20/24documented as of this encounter
--- OUTSIDE RECORDS SUMMARY | 2025-08-06 09:57 | XMS_ITS | Clinical Summary ---
Author Organization [facility] Healthcare Address [address] [place] [address] Care Team Providers Care Reservations Manager Name Role Phone Judy Caal Unavailable Unavailable Allergies No known active allergies Medications MedicationSigDispense QuantityRefillsLast FilledStart DateEnd DateStatus sertraline (Zoloft) 25 MG tablet Take 50 mg by mouth 1 (one) time each day at the same time5Active labetalol (Normodyne) 100 MG tablet Indications:HypertensionTake 1 tablet (100 mg) by mouth Daily 30 tablet 5Active Additional Information Patient taking differently: 200 mgOral2 times daily, Morning, Bedtime, Indications: Hypertension, Reported on 08/06/2025 NIFEdipine XL (Procardia XL) 60 MG 24 hr tablet Indications:Chronic hypertension affecting (HHS-HCC)Take 1 tablet (60 mg) by mouth at noon and 1 tablet (60 mg) in the evening. Take 1 tablet in the am. Do not crush, chew, or split. 30 tablet ctive Nitxfmtd-Vbj-Kv-FA ( 1 + IRON PO) PrenatalActive magnesium oxide (Mag-Ox) 400 mg tablet as directed OrallyActive magnesium oxide (Mag-Ox) 400 MG tablet Take 1 tablet by mouth Daily5Active Procardia XL 30 MG 24 hr tablet [...] vagina Daily for 5 days 70 g 5109/13/2024Expired metFORMIN XR (Glucophage-XR) 500 MG 24 hr tablet 1 (one) time each day at the same time08/06/2025Discontinued Active Problems ProblemNoted DateDiagnosed DateVitamin D xtwxuzlqhg80/02/2025H/O pre-eclampsia in prior , currently ([facility])05/23/2025Pregnancy induced hypertension, antepartum ([facility])04/25/2025Fallopian tube dfxkiipq00/09/2024 PCOS (polycystic ovarian syndrome)07/30/2024Estimated Date of Delivery GyhzecdpLjc00/11/2026ased on last menstrual period of 12/26/2024 Encounters DateTypeDepartmentCare OqvxSrjzbvsuksq15/16/2025 8:40 [place] [phone] Israel Broderick, DO 31 weeks gestation of ([facility]); Third trimester ([facility]); H/O pre-eclampsia in prior , currently ([facility]); Vitamin D ewbbffkowj68/16/2025amboo [place] [phone] Israel Broderick, DO 08/05/20255794Hgemio92/12/2025linisync Result Encounter NOMS External Department Unsolicited Israel Broderick, DO 08/02/2025linisync Result Encounter NOMS External Department Unsolicited Israel Broderick, DO 07/30/2025Patient Outreach [facility] [address] [place] [address] Bethany Sheehan LPN 07/24/2025 11:20 [place] [phone] DavieIsrael koch, DO Third trimester ([facility]); 30 weeks gestation of ([facility])5Bamboo flowsheet [facility] [address] [facility] [phone] DavieIsrael, DO 07/23/20251724Kethhe86/02/2025Clinisync Result Encounter NOMS External Department Unsolicited Davie, Israel, DO 5Clinisync Result Encounter NOMS External Department Unsolicited Davie, Israel, DO 5Clinisync Result Encounter NOMS External Department Unsolicited DavieJuliocesary, DO 07/09/2025 1:20 PM ESTRoutine [facility] [address] [facility] [place] [address] Bethany Simon PA 27 weeks gestation of ([facility]); Second trimester ([facility]); H/O pre-eclampsia in prior , currently ([facility]); Vitamin D deficiency; Chronic hypertension affecting ([facility]); BV (bacterial vaginosis)5Bamboo flowsheet [facility] HEAD [address] [place] [address] [place] [phone] Bethany Simon PA 5Clinisync Result Encounter NOMS External Department Unsolicited Israel Broderick, DO 07/05/2025Telephone [facility] [address] [facility] [place] [phone] Tsering Willingham MA 5Clinisync Result Encounter NOMS External Department Unsolicited Israel Broderick, DO 07/02/2025Patient Outreach [facility] [address] [place] [address] Bethany Sheehan LPN 06/24/2025 1:50 PM ESTRoutine [facility] OBBEN [address] [place] [address] [place] [address] Israel Broderick, Second trimester ([facility]); 25 weeks gestation of ([facility]); H/O pre-eclampsia in prior , currently ([facility]); Vitamin D deficiency; Chronic hypertension affecting ([facility]); Diabetes mellitus avhyozsjv36/03/2025amboo flowsheet [facility] Jerome [facility] [place] [address] Israel Broderick DO 06/23/20254184Potgkj58/15/2025 8:50 AM EDTRoutine [facility] Jerome [facility] [place] [address] Rosie Qiu NP Second trimester ([facility]); 23 weeks gestation of ([facility])06/05/2025amboo flowsheet [facility] Jerome [facility] [place] [address] Rosie Qiu NP 06/04/2025Patient Outreach [facility] [address] [place] [address] Bethany Sheehan LPN 05/31/2025bstract [facility] [address] [place] [address] Bethany Sheehan LPN 05/30/2025 3:20 PM EDTRoutine [facility] Jerome [facility] [place] [address] Rosie Qiu NP Chronic hypertension affecting ([facility]) (Primary Dx); Second trimester ([facility]); 22 weeks gestation of ([facility])05/30/2025amboo flowsheet [facility] [address] [place] [address] [place] [address] Rosie Qiu NP 05/29/20256905Pciisx56/07/2025Telephone [facility] [address] [facility] [place] [phone] Melanie Almaraz MA 05/23/2025 2:30 PM EDTRoutine [facility] [address] [place] [phone] Rosie Qiu, JEM Second trimester ([facility]); 21 weeks gestation of ([facility]); induced hypertension, antepartum ([facility]); Vitamin D deficiency; H/O pre-eclampsia in prior , currently ([facility])05/23/2025 Clinisync Result Encounter NOMS External Department Unsolicited Israel Broderick DO 05/23/2025amboo flowsheet [facility] [address] [facility] [place] [phone] Rosie Qiu, JEM 05/22/20250537Lmxuju88/29/2025bstract [facility] [place] [facility] [address] [facility] [place] [phone] Tsering Willingham MA 05/17/2025External Result Encounter [facility] [address] [place] [address] Israel Broderick DO 05/15/2025Refill [facility] [address] [facility] [place] [phone] Israel Broderick, Second trimester ([facility]); Gestational hypertension, antepartum ([facility])05/15/2025Telephone [facility] [address] [place] [address] Israel Broderick DO from Last 3 Months Family History Medical HistoryRelationNameCommentsepilepsyBrotherDiabetesFatherDerrick Cruz HTNFatherDerrick HofferHeart failureFather's Brother 1Elmer HofferHeart failure Father's Brother 2Elmer HofferHeart failureFather's Brother 3Elmer HofferHeart failureFather's Brother 4Elmer HofferCancerMaternal GrandfatherFrank Ross Pancreatic cancerMaternal GrandfatherFrank RossRheum arthritisMotherVanessa HofferhtnMotherVanessa HofferRelationNameStatusCommentsBrotherFatherDerrick HofferAliveFather's Brother 1Elmer HofferAliveFather's Brother 2Elmer Cruz AliveFather's Brother 3Elmer HofferAliveFather's Brother 4Elmer HofferAlive Maternal GrandfatherFrank RossAliveMotherVanessa HofferAlive Social History Tobacco UseTypesPacks/DayYears UsedDateSmoking Tobacco: NeverSmokeless Tobacco: Never Tobacco Cessation:Counseling Given: Not Answered Alcohol UseStandard Drinks/WeekCommentsNever0 (1 standard drink = 0.6 oz pure alcohol)PHQ-2AnswerDate RecordedPatient Health Questionnaire-2 Cvogw68109/30/2024 Estimated Date of YmdhoyajMegcjddaVex51/11/2026ased on last menstrual period of 12/26/2024Sex and Gender InformationValueDate RecordedSex Assigned at BirthNot on fileLegal PkiFcqcjd23/06/2024 9:48 AM EDTGender IdentityNot on file Sexual OrientationNot on fileTravel HistoryTravel StartTravel EndPen[place] Last Filed Vital Signs Vital SignReadingTime TakenCommentsBlood Woafjrua428/6808/06/2025 8:43 AM EST Pulse--Temperature--Respiratory Rate--Oxygen Saturation--Inhaled Oxygen Concentration--Qertbx498 kg (291 lb 1.9 oz)08/06/2025 8:43 AM ASKXfhymt533.7 cm (5' 8 )06/11/2024 2:39 PM EDTBody Mass Index44.261 2:39 PM EDT Plan of Treatment DateTypeDepartmentCare Team (Latest Contact Info)Igfuvhkweov40/30/2025 1:20 PM ESTRoutine [facility] [address] [place] [address] [place] [address] Bethany Simon PA [address] [facility] [place] [address] 12/16/2025 3:00 PM EDTOffice Visit [facility] LAWSONGYRafal [address] [facility] [place] [address] Israel Broderick DO [address] [facility] [place] [address] Health MaintenanceDue DateLast DoneCommentsCOVID-19 Vaccine (2024- season) 2025Influenza Vaccine (#1)2025HPV/Vjqybi75/804/3Cervical Cancer Twaikyunm95/21/2028Pap Smear/, 3Pneumococcal Vaccine: Pediatrics (0 to 5 Years) and At-Risk Patients (6 to 64 Years)Aged Out No longer eligible based on patient's age to complete this topic Procedures Procedure NamePriorityDate/TimeAssociated DiagnosisCommentsPOCT URINALYSIS PURACSSEFtelxap50/16/2025 8:46 AM EST 31 weeks gestation of ([facility]) Third trimester ([facility]) US OB BPP W NON-MQRSGH3808/02/2025 4:49 PM EST OB XDNPGH6108/02/2025 4:46 PM EST POCT URINALYSIS NBLVTSPMMwtklux82/03/2025 11:40 AM EST 30 weeks gestation of ([facility]) US OB BPP W NON-GCUOVP2807/23/2025 10:49 AM EST OB IAJHAE2407/12/2025 2:57 PM EST US OB BPP W NON-KEHMEI4907/12/2025 2:56 PM EST POCT URINALYSIS OQCEKGGRNvqjqbd12/18/2025 1:46 PM EST 27 weeks gestation of ([facility]) Second trimester ([facility]) GLUCOSE TOLERANCE 3 CPHFIfidfml95/15/2025 8:09 AM EST ALL CBC WITH AUTO VUPWWgqzsrw59/15/2025 8:09 AM EST GLUCOSE 1 TETRUxhogef58/13/2025 10:25 AM EST ALL CBC WITH AUTO RLGOHtlgvoe17/13/2025 10:25 AM EST POCT URINALYSIS QTXDHQBQRqhgfrr82/03/2025 1:51 PM EST Second trimester ([facility]) POCT URINALYSIS TRFMZNEXGgcyipl74/15/2025 9:03 AM EDT Second trimester ([facility]) POCT URINALYSIS ZZPVTONGEkuycrl05/09/2025 3:24 PM EDT 22 weeks gestation of ([facility]) AFP, SERUM, OPEN SPINA TUTWINDikzskd21/02/2025 2:30 PM EDT US OB 14+ WEEKS ANATOMY SCAN05/17/2025 4:39 PM EDT PAP HNUXVPtpgrpr98/21/2025 12:00 AM EDTfrom Last 3 Months or Most Recently Relevant to Health Maintenance Results * (ABNORMAL) POCT urinalysis dipstick manually resulted (08/06/2025 8:46 AM EST) Only the most recent of6 resultswithin the time period is included. ComponentValueRef RangeTest MethodAnalysis TimePerformed AtPathologist Signature Color, UAYellowClarity, UAClearGlucose, UANegativeNegative - 2000(110) ++++ mg/dLBilirubin, UANegativeNegative - 4(70) +++ mg/dLKetones, UANegativeNegative - 160(16) ++++ mg/dLSpec Grav, UA1.0201 - 1.03Blood, UANegativeNegative - 50 Surjit/mcLpH, UA6.05 - 9Protein, UAPositiveNegative - 2000(20) ++++ mg/dL Urobilinogen, UA1.00.2 - 12 mg/dLLeukocytes, UA3+Negative - 500+++ Kaleigh/mcL Nitrite, UANegativeNegative - PositiveSpecimen (Source)Anatomical Location / LateralityCollection Method / VolumeCollection TimeReceived CqgpBlums74/16/2025 8:46 AM EST Narrative Authorizing ProviderResult TypeResult StatusCorey Davie DOPOINT OF CARE TEST ENTER/EDIT ORDERABLESFinal Result * US OB BPP W NON-STRESS (08/02/2025 4:49 PM EST) Only the most recent of3 resultswithin the time period is included. Anatomical RegionLateralityModalityOtherSpecimen (Source)Anatomical Location / LateralityCollection Method / VolumeCollection TimeReceived Time08/02/2025 4:49 PM EST Narrative 08/02/2025 4:52 PM EST [facility] ?[address] ? [place] [address] ? Ultrasound Report ? Signed ? Patient: PAULAELLEN Lockwood ?MR#: [id number] ?? : 1990 ?Acct:[id number] ?? Age/Sex: 35 / F ?ADM Date: 08/02/25 ?? Loc: US ? Attending Dr: Israel Broderick D.O. ? Ordering Physician: Israel Broderick D.O. ?? Date of Service: 08/02/25 ?? Procedure(s): US OB BPP w non-stress ?? Accession Number(s): [id number] ? cc: Israel Broderick D.O.; Judy Yepez TOBACCO PACKER ? [facility] ? [address] ? [place] [address] ? Patient Name: ?? ELLEN RAMIRES ? MRN: [facility]:[id number] ? date: 1990 ?Sex: F ?? Assigned Patient Location: ?? Current Patient Location: ? Accession/Order Number: [id number] ?? Exam Date: 08/02/2025 ??10:15 ?Report Date: 08/02/2025 ??16:49 ? At the request of: ?? ISRAEL ??DAVIE ??DO ? Procedure: ??US OB BPP w non-stress ? US OB BPP w non-stress ??08/02/2025 11:21 AM ? SIGNS AND SYMPTOMS: ?? 10/02/2025 ?? H/O PREECLAMPSIA O09.299 ? COMPARISON: None. ? TECHNIQUE: Transabdominal sonographic imaging of the gravid uterus ? FINDINGS: ? Estimated age: 33 weeks and 3 days ? heart rate: 155 bpm. ? Amniotic fluid index: 14.4 cm with the deepest vertical pocket measuring 5.0 ?? cm. ? Biophysical profile: ? breathing movements: 2/2 ? Gross body movements: 2/2 ? tone: 2/2 ? Amniotic fluid volume: 2/2 ? US/US OB BPP w non-stress ?? IMPRESSION: ? With biophysical profile score: 8/8 ? Impression dictated by: Raffy Gibson M.D. ??08/02/2025 4:49 PM ? Dictation Location: [facility]-- ? Electronically authenticated by: [id number] ??Y ?? Date: 08/02/2025 ??16:49 ? Dictated By: ?Raffy Gibson M.D. ? Signed By: ?08/02/25 1652 ? DD/ 1649 ? TD/TT: ? Hospital Insurance Clerk: Procedure Note Radiology, Radiologist, MD - 08/02/2025 [place] [address] Ultrasound Report Signed Patient: ELLEN RAMIRES JUAN#: [id number] : 1990Acct:[id number] Age/Sex: 35 / FADM Date: 08/02/25 Loc: US Attending Dr: Israel Broderick D.O. Ordering Physician: Israel Broderick D.O. Date of Service: 08/02/25 Procedure(s): US OB BPP w non-stress Accession Number(s): [id number] cc: Israel Broderick D.O.; Judy Yepez NP [address] [address] Patient Name: ELLEN RAMIRES MRN: [id number] date: 1990 Sex: F Assigned Patient Location: US Current Patient Location: Accession/Order Number: [id number] Exam Date: 08/02/2025 10:15 Report Date: 08/02/2025 [...] 14.4 cm with the deepest vertical pocket measuring5.0 cm. Biophysical profile: breathing movements: 2/2 Gross body movements: 2/2 tone: 2/2 Amniotic fluid volume: 2/2 US/US OB BPP w non-stress IMPRESSION: With biophysical profile score: 8/8 Impression dictated by: Raffy Gibson M.D. 08/02/2025 4:49 PM Dictation Location: [place] [address] Electronically authenticated by: [id number] Y Date: 6:49 Dictated By: Raffy Gibson M.D. Signed By:08/02/25 165 DD/ 48 TD/TT: Hospital Insurance Clerk: Authorizing ProviderResult TypeResult StatusCorey Davie DOCLINISYNC IMAGINGFinal Result * US OB GROWTH (08/02/2025 4:46 PM EST) Only the most recent of2 resultswithin the time period is included. Anatomical RegionLateralityModalityOtherSpecimen (Source)Anatomical Location / LateralityCollection Method / VolumeCollection TimeReceived Time08/02/2025 4:46 PM EST Narrative 08/02/2025 4:49 PM EST [facility] ?[address] ? [place] [address] ? Ultrasound Report ? Signed ? Patient: RAMIRES,ELLEN J ?MR#: [id number] ?? : 1990 ?Acct:[id number] ?? Age/Sex: 35 / F ?ADM Date: 08/02/ ?? Loc: US ? Attending Dr: Israel Broderick D.O. ? Ordering Physician: Israel Broderick D.O. ?? Date of Service: 08/02/25 ?? Procedure(s): US OB growth ?? Accession Number(s): [id number] ? cc: Israel Broderick D.O.; Judy Yepez TOBACCO PACKER ? [facility] ? [address] ? [place] [address] ? Patient Name: ?? ELLEN Mandie RAMIRES ? MRN: [facility]:[id number] ? date: 1990 ?Sex: F ?? Assigned Patient Location: US ?? Current Patient Location: ? Accession/Order Number: [id number] ?? Exam Date: 08/02/2025 ??10:15 ?Report Date: [...] M.D. ??08/02/2025 4:46 PM ? Dictation Location: [facility]-23 ? Electronically authenticated by: [id number] ??Y ?? Date: 08/02/2025 ??16:46 ? Dictated By: ?Raffy Gibson M.D. ? Signed By: ?08/02/259 ? DD/ 1646 ? TD/TT: ? Hospital Insurance Clerk: Procedure Note Radiology, Radiologist, MD - 08/02/2025 [place] [address] Ultrasound Report Signed Patient: ELLEN RAMIRES JMR#: [id number] : 1990Acct:[id number] Age/Sex: 35 / FADM Date: 08/02/25 Loc: US Attending Dr: Israel Broderick D.O. Ordering Physician: Israel Broderick D.O. Date of Service: 08/02/25 Procedure(s): US OB growth Accession Number(s): [id number] cc: Israel Broderick D.O.; Judy Yepez NP The [address] [address] Patient Name: ELLEN RAMIRES MRN: [id number] date: 1990 Sex: F Assigned Patient Location: Current Patient Location: Accession/Order Number: [id number] Exam Date: 08/02/2025 10:15 Report Date: 08/02/2025 [...] Gibson M.D. 08/02/2025 4:46 PM Dictation Location: [place] [address] Electronically authenticated by: [id number] Y Date: :[birth year] Dictated By: Raffy Gibson M.D. Signed By:08/02/251648 DD/ 45 TD/TT: Hospital Insurance Clerk: Authorizing ProviderResult TypeResult StatusCorenitesh WHATLEY IMAGINGFinal Result * GLUCOSE TOLERANCE 3 HOUR (07/06/2025 [...] - 35.2 g/dLTBHTBH RDW13.011.0 - 15.0 %TBHTBH [id number] - 450 10 3/uLTBHTBH MPV10.59.5 - 13.5 [...] Performing OrganizationAddressCity/State/ZIP CodePhone Number CLINISYNC TB * (ABNORMAL) GLUCOSE 1 HOUR (07/04/2025 10:25 AM EST)ComponentValueRef RangeTest MethodAnalysis TimePerformed AtPathologist SignatureGLUCOSE 1 ZLYI409(H)<130 mg/dLTBHSpecimen (Source)Anatomical Location / LateralityCollection Method / VolumeCollection TimeReceived Time07/04/2025 10:25 AM EST07/04/2025 10:33 AM EST Narrative CLINISYNC - 07/04/2025 11:32 AM EST Authorizing ProviderResult TypeResult StatusCorey Davie MCNAIR BLOOD ORDERABLES Final ResultPerforming OrganizationAddressCity/State/ZIP CodePhone Number CLINISYGEOVANY [facility] * AFP, SERUM, OPEN SPINA BIFIDA (05/23/2025 2:30 PM EDT)ComponentValueRef Range Test MethodAnalysis TimePerformed AtPathologist SignatureRESULTSReport.TBHTEST RESULTS:*Screen Negative*.TBHGEST. AGE ON COLLECTION DATE21.1. weeksTBHGESTAT. AGE BASED ONLMP.TBHComment: Recalculations are not recommended when gestational dating by LMP and ultrasound are within 10 days. MATERNAL AGE AT EDD33.5. yrTBHRACECaucasian.ZIABKRNNR152. lbsTBHINSULIN DEP DIABETESNo.TBHMULTIPLE GESTATIONNo.TBHAFP VALUE38.2. ng/mLTBHAFP MOM0.85.TBHOSBR RISK 1 UD52969.TBHINTERPRETATIONComment.TBHComment: Interpretation: Screen Negative This result is screen [...] Customer Services to discuss available options. ??The [employer] recommends amniocentesis be offered to women age 35 and older. COMMENT:Comment.TBHComment: Gema Ortez, Ph.D., [facility] Director References: Available Upon Request. Multiples Of Median Cutoffs ?For AFP Elevations Kumar ?? 2.5 ? Black ?2.8 IDD ? 2.0 ? Twins ?4.5 ?Abbreviation Definitions IDD - Insulin Dep Diabetes OSBR - Open Spina Bifida Risk For further inquiries contact [facility] at [phone]. This test was developed and its performance characteristics determined by [employer]. It has not been cleared or approved by the Food and Drug Administration. Performed at: ??[facility] [place], [place] [id number] Water Systems Engineer: Jesus Saleh [facility], Phone: ??[phone] Specimen (Source)Anatomical Location / LateralityCollection Method / Volume Collection TimeReceived Time05/23/2025 2:30 PM EDT1 2:40 PM EDT Narrative CLINISYNC - 05/25/2025 1:07 AM EDT N N LMP [id number] 2 9 N 1 282 N N N N N White/ Authorizing ProviderResult TypeResult StatusCorey Davie DOLAB BLOOD ORDERABLES Final ResultPerforming OrganizationAddressCity/State/ZIP CodePhone Number CLINISYNC TB * OB 14+ weeks anatomy scan (05/17/2025 4:39 PM EDT)Anatomical Region LateralityModalityBodyUltrasoundSpecimen (Source)Anatomical Location / LateralityCollection Method / VolumeCollection TimeReceived Time05/17/2025 4:39 PM EDT Narrative 05/17/2025 4:39 PM EDT THIS EXAM WAS PERFORMED AT [facility] NAME: ??PAULA HUGHES : 1990 SEX: F Accession Number: [id number] ORDERING PHYSICIAN: ISRAEL BRODERICK REFERRING PHYSICIAN: ISRAEL BRODERICK Coding Procedures ? 15269: Ultrasound, uterus, real time with image documentation, and maternal evaluation ? plus detailed anatomic examination, transabdominal approach;single or first gestation ? 47629: Ultrasound, uterus, real time with image documentation, transvaginal Indication Screening for Anatomic Survey , Screening for cervical length , Anxiety , Depression , Gestational hypertension without significant proteinuria , Obesity in , History of gestational hypertension. History OB History ? 2. Para 1 ? [id number] Maternal Assessment Physical Exam ??Height 173 cm, [...] Hadlock Humerus ?31.5 mm 20w 4d 60% Gavnio HC / AC ?1.17 ? 56% Hadlock EFW ?362 g ?60% Hadlock EFW (lb) ? 0 lb EFW (oz) ? 13 oz EFW by: ?Hadlock (OFF-CO-AC-FL) Extended Tibia ??23.0 mm 18w 1d 2% [...] Heart/Thorax: RVOT view. LVOT view. 3-vessel view. 1-fbmoti-qfcifwj view. Situs. Bicaval view. Cardiac position. ? [...] left ovarian cyst noted. Recommendations Please see [facility] documentation from today. The patient is scheduled in four to six week(s) to complete anatomic survey. Subsequent follow up or other follow up as clinically determined by primary OB provider unless otherwise specified by [facility]. Results forwarded to ordering provider so they can follow up with the patient as necessary. Procedure Note Radiology, Radiologist, - 05/17/2025 THIS EXAM WAS PERFORMED AT [facility] NAME: PAULA HUGHES : 1990 SEX: F Accession Number: [id number] ORDERING PHYSICIAN: ISRAEL BRODERICK REFERRING PHYSICIAN: ISRAEL BRODERICK Coding Procedures 03104: Ultrasound, uterus, real time with image documentation, and maternal evaluation plus detailed anatomic examination, transabdominalapproach;single or first gestation 91708: Ultrasound, uterus, real time with imagedocumentation, transvaginal Indication Screening for Anatomic Survey , Screening for cervical length , Anxiety , Depression , Gestational hypertension without significant proteinuria , Obesity in , History of gestational hypertension. History OB History 2. Para 1 [id number] Maternal Assessment Physical Exam Height 173 cm, [...] EFW (oz) 13 oz EFW by: Hadlock (QLS-UG-EA-FL) Extended Tibia 23.0 mm 18w 1d 2% [...] Heart/Thorax: RVOT view. LVOT view. 3-vessel view. 7-vemkbr-wlbhrzb view.Situs. Bicaval view. Cardiac position. Cardiac axis. [...] [place] OB US PROCEDURES Final Result * Pap Smear (12/10/2024 12:00 AM EDT)Specimen (Source)Anatomical Location / LateralityCollection Method / VolumeCollection TimeReceived TimeSwabCervical swab / Unknown Narrative Authorizing ProviderResult TypeResult StatusFazio Nurse Noms Bcp ObLAB CYTOLOGY ORDERABLESFinal ResultPerforming OrganizationAddressCity/State/ZIP CodePhone Number EXTERNAL LAB from Last 3 Months or Most Recently Relevant to Health Maintenance Insurance Care Teams Team MemberRelationshipSpecialtyStart DateEnd Date Judy Caal PCP - [facility] [facility]02/20/24
--- OUTSIDE RECORDS SUMMARY | 2025-08-06 09:57 | XMS_ITS | Encounter Summary ---
Author Organization [facility] Address [address] [place] [address] Care Team Providers Care Medical Transcriber Name Role Phone Judy Caal Unavailable Unavailable Encounter Details DateTypeDepartmentCare Team (Latest Contact Info)Nfphzloeluf02/12/2025linisync Result Encounter [facility] External Department Unsolicited Caesar Broderick DO [address] [place] [address] Social History Tobacco UseTypesPacks/DayYears UsedDateSmoking Tobacco: NeverSmokeless Tobacco: NeverAlcohol UseStandard Drinks/WeekCommentsNever0 (1 standard drink = 0.6 oz pure alcohol)PHQ-2AnswerDate RecordedPatient Health Questionnaire-2 Score0 07/30/2025Estimated Date of OeiqdofrNqzemwkgMqw37/11/2026ased on last menstrual period of 12/26/2024Sex and Gender InformationValueDate RecordedSex Assigned at BirthNot on fileLegal WtyOcnzme70/06/2024 9:48 AM EDTGender Identity Not on fileSexual OrientationNot on fileTravel HistoryTravel StartTravel End Koxmamkgrvzo41documented as of this encounter Plan of Treatment DateTypeDepartmentCare Team (Latest Contact Info)Ptuypkkrawj68/30/2025 1:20 PM ESTRoutine [facility] [place] [facility] [address] [place] [address] Bethany Simon PA [address] [place] [address] 12/16/2025 3:00 PM EDTOffice Visit [facility] [place] [facility] [address] [place] [phone] Caesar Broderick, DO [address] [place] [address] documented as of this encounter Procedures Procedure NamePriorityDate/TimeAssociated DiagnosisCommentsUS OB BPP W NON-RZNSAC8108/02/2025 4:49 PM EST documented in this encounter Results * US OB BPP W NON-STRESS (08/02/2025 4:49 PM EST)Anatomical Region LateralityModalityOtherSpecimen (Source)Anatomical Location / Laterality Collection Method / VolumeCollection TimeReceived Time08/02/2025 4:49 PM EST Narrative 08/02/2025 4:52 PM EST [facility] ?[address] ? [place] [address] ? Ultrasound Report ? Signed ? Patient: ELLEN RAMIRES ?MR#: [id number] ?? : 1990 ?Acct:[id number] ?? Age/Sex: 35 / F ?ADM Date: 08/02/25 ?? Loc: US ? Attending Dr: Caesar Broderick D.O. ? Ordering Physician: Caesar Broderick D.O. ?? Date of Service: 08/02/25 ?? Procedure(s): US OB BPP w non-stress ?? Accession Number(s): [id number] ? cc: Caesar Broderick D.O.; Judy Yepez RN HOUSE SUPERVISOR ? [facility] ? [address] ? [place] [address] ? Patient Name: ?? ELLENJULISSA RAMIRES ? MRN: [id number] ? date: 1990 ?Sex: F ?? Assigned Patient Location: US ?? Current Patient Location: ? Accession/Order Number: [id number] ?? Exam Date: 08/02/2025 ??10:15 ?Report Date: 08/02/2025 ??16:49 ? At the request of: ?? CAESAR ??DAVIE ??DO ? Procedure: ??US OB BPP [...] M.D. ??08/02/2025 4:49 PM ? Dictation Location: [facility]-- ? Electronically authenticated by: [id number] ??Y ?? Date: 08/02/2025 ??16:49 ? Dictated By: ?Raffy Gibson M.D. ? Signed By: ?08/02/25 1652 ? DD/ 1649 ? TD/TT: ? Program Instructor: Procedure Note Radiology, Radiologist, - 08/02/2025 [place] [address] Ultrasound Report Signed Patient: ELLEN RAMIRES JMR#: [id number] : 1990Acct:[id number] Age/Sex: 35 / FADM Date: 08/02/25 Loc: US Attending Dr: Caesar Broderick D.O. Ordering Physician: Caesar Broderick D.O. Date of Service: 08/02/25 Procedure(s): US OB BPP w non-stress Accession Number(s): [id number] cc: Caesar Broderick D.O.; Judy Yepez RN HOUSE SUPERVISOR The [place] [address] Patient Name: ELLEN RAMIRES MRN: [id number] date: 1990 Sex: F Assigned Patient Location: Current Patient Location: Accession/Order Number: [id number] Exam Date: 08/02/2025 10:15 Report Date: 08/02/2025 16:49 At the request of: CAESAR BRODERICK DO Procedure: US OB BPP w [...] Gibson M.D. 08/02/2025 4:49 PM Dictation Location: [place] [address] Electronically authenticated by: [id number] Y Date: 6:49 Dictated By: Raffy Gibson M.D. Signed By:08/02/251651 DD/ 48 TD/TT: Program Instructor: Authorizing ProviderResult TypeResult StatusCorey Davie DOCLINISYNC IMAGINGFinal Result documented in this encounter Visit Diagnoses Not on filedocumented in this encounter Care Teams Team MemberRelationshipSpecialtyStart DateEnd Date Judy Caal PCP - [facility]02/20/24documented as of this encounter
--- OUTSIDE RECORDS SUMMARY | 2025-08-06 09:57 | XMS_ITS | Encounter Summary ---
Author Organization [facility] tem Address [id number] [address] [place] [address] Care Team Providers Care Carbide Tool Die Maker Name Role Phone Services, [facility] Primary Care Provider Encounter Details DateTypeDepartmentCare Team (Latest Contact Info)Knwdgcyovlp08/07/2025Travel Social History Tobacco UseTypesPacks/DayYears UsedDateSmoking Tobacco: NeverSmokeless [...] money to get more.Never True05/17/2025Estimated Date of FlbfrkuwAbbwemngIyu68/11/2026ased on last menstrual period of 12/26/2024Sex and Gender InformationValueDate RecordedSex Assigned at BirthNot on fileLegal Sex Nskyaq2409/30/2022 2:11 PM ESTGender IdentityNot on fileSexual OrientationNot on fileTravel HistoryTravel StartTravel XarAhgtmxjciryy32 documented as of this encounter Plan of Treatment DateTypeDepartmentCare Team (Latest Contact Info)Iusccdzfgfi41/15/2026 2:00 PM ESTTelemedicine Maternal- Medicine at [facility] [address] [place] [phone] Sheila Cruz MD [address] [facility] [address] [place] [address] documented as of this encounter Visit Diagnoses Not on filedocumented in this encounter Care Teams Team MemberRelationshipSpecialtyStart DateEnd Date Services, [facility] [address] [place], [place] PCP - GeneralFamily Medicine11/03/24documented as of this encounter
[2025-08-06 10:06] VITALS: BP 130/66; PULSE 85
== END 2025-08-06 10:40 | disposition home or self-care (01) ==
LOC: FBCO 09:54 → FBC 09:57
PROVIDERS: Visit Provider Obstetrics & Gynecology
DX: O10.913 Unspecified pre-existing hypertension complicating pregnancy, third trimester (principal)
CPT/HCPCS: 59025

== ENCOUNTER 2025-08-09 10:16 | Outpatient (OUT) | payer MEDICAID, SELFPAY ==
--- OUTSIDE RECORDS SUMMARY | 2024-05-14 08:30 | XMS_ITS ---
Author Organization [facility] vices Address [address] [place], [place] [address] Care Team Providers Care Factory Representative Name Role Phone Sabiha Aviles Primary Care Provider [phone] REASON FOR VISIT 3 mo Vit D Social History Sex Assigned At : Social History Observation Description Sex Assigned At Female Encounters Encounter Location Date Provider Diagnosis East [address] [place] [id number] 05/14 Sabiha Aviles Plan Of Treatment Next Appt Details Provider Name:Judy Yepez , 08/27/2025 08:15:00 AM, [address] [place], [place], [id number], Progress Notes * Chayo RAMIRESDOB: 2 (35 yo F)Acc No.[id number]:05/14/2024 Medical Note Patient: Trent murphy Chayo Lockwood :?Sabiha AvilesDOB:1990???Age:34 Y???Sex: FemaleDate:05/14/2024hone:[phone]:[address] [facility], [address], [place], [place] Subjective: * Chief Complaints: * 3 mo Vit D * Electronic signature of THEA Ward on 08/09/2025 at 10:20 AM ESTSign off status: Pending * Provider: Jill Aviles Date: 0 05/14/2024 Generated for Printing/Faxing/eTransmitting on:?08/09/2025 10:20 AM EST
--- OUTSIDE RECORDS SUMMARY | 2024-05-24 10:00 | XMS_ITS ---
Author Organization [facility] vices Address [address] [place], [place] [address] Care Team Providers Care Restrike Hammer Operator Name Role Phone Sabiha Aviles Primary Care Provider [phone] Noelle Chris Unavailable REASON FOR VISIT 3 mo Vit D Social History Sex Assigned At : Social History Observation Description Sex Assigned At Female Encounters Encounter Location Date Provider Diagnosis Main [address] [place], [place] [id number] 05/24/2024 Noelle Chris Plan Of Treatment Next Appt Details Provider Name:Judy Yepez , 08/27/2025 08:15:00 AM, [address] [place], [place], [phone], Progress Notes * Chayo RAMIRESDOB: 2 (35 yo F)Acc No.[id number]:05/24/2024 Medical Note Patient: Trent murphy Chayo Lockwood :?DANA PerezCDOB:1990???Age:34 Y???Sex:FemaleDate:05/24/2024hone:[phone]:[address] [facility], [address], [place], [place]Zke:Sabiha Aviles Subjective: * Chief Complaints: * 3 mo Vit D Billing Information: * Procedure Codes: * Electronic signature of FABI Perez on 08/09/2025 at 10:20 AM EST Sign off status: Pending * Provider: FABI Acevedo Date: Generated for Printing/Faxing/eTransmitting on:?08/09/2025 10:20 AM EST
--- OUTSIDE RECORDS SUMMARY | 2024-06-25 10:00 | XMS_ITS ---
Author Organization [facility] vices Address [address] [place], [place] [address] Care Team Providers Care Jewel Grinder Name Role Phone Sabiha Aviles Primary Care Provider [phone] REASON FOR VISIT 3mo. F/U Vit. D. Social History Sex Assigned At : Social History Observation Description Sex Assigned At Female Encounters Encounter Location Date Provider Diagnosis [address] [phone] 06/25 Sabiha Aviles Plan Of Treatment Next Appt Details Provider Name:Judy Yepez , 08/27/2025 08:15:00 AM, [address] [place], [place], [id number], Progress Notes * Chayo RAMIRESDOB: 2 (35 yo F)Acc No.[id number]:06/25/2024 Medical Note Patient: Trent murphy Chayo Lockwood :?Sabiha AvilesDOB:1990???Age:34 Y???Sex: FemaleDate:06/25/2024hone:[phone]:[address] [place] [address], [address] [facility], [place], [place] Subjective: * Chief Complaints: * 3 mo. F/U Vit. D. Billing Information: * Procedure Codes: * Electronic signature of THEA Ward on 08/09/2025 at 10:19 AM ESTSign off status: Pending * Provider: Jill Aviles Date: 08/25/2023 Generated for Printing/Faxing/eTransmitting on:?08/09/2025 10:19 AM EST
--- OUTSIDE RECORDS SUMMARY | 2025-03-05 08:15 | XMS_ITS ---
Author Organization [facility] vices Address [address] [place], [place] [phone] Care Team Providers Care Environmental Journalist Name Role Phone Sabiha Aviles Primary Care Provider REASON FOR VISIT 3m depression, anxiety Social History Sex Assigned At : Social History Observation Description Sex Assigned At Female Encounters Encounter Location Date Provider Diagnosis East [address] [place] [phone] 03/05 Sabiha Aviles Plan Of Treatment Next Appt Details Provider Name:Judy Yepez , 08/27/2025 08:15:00 AM, [address] [place], [place], [phone], Progress Notes * Chayo RAMIRESDOB: 2 (35 yo F)Acc No.[id number]:03/05/2025 Medical Note Patient: Trent murphy Chayo Lockwood :?Sabiha AvilesDOB:1990???Age:34 Y???Sex: FemaleDate:03/05/2025Phone:[phone]:[address] [facility], [address], [place], [place] Subjective: * Chief Complaints: * 3 m depression, anxiety * Electronic signature of THEA Ward on 08/09/2025 at 10:19 AM ESTSign off status: Pending * Provider: Jill Aviles Date: 0 03/05/2025 Generated for Printing/Faxing/eTransmitting on:?08/09/2025 10:19 AM EST
--- OUTSIDE RECORDS SUMMARY | 2025-05-20 08:15 | XMS_ITS ---
Author Organization [facility]ices Address [address] [place], [place] [address] Care Team Providers Care Teletypesetter Operator Name Role Phone Sabiha Aviles Primary Care Provider [phone] Noelle Chris Unavailable REASON FOR VISIT depression Social History Sex Assigned At : Social History Observation Description Sex Assigned At Female Encounters Encounter Location Date Provider Diagnosis Main [address] [place], [place] [id number] 05/20/2025 Noelle Chris Plan Of Treatment Next Appt Details Provider Name:Judy Yepez , 08/27/2025 08:15:00 AM, [address] [place], [place], [phone], Progress Notes * Chayo RAMIRESDOB: 2 (35 yo F)Acc No.[id number]:05/20/2025 Medical Note Patient: Trent murphy Chayo [place] :?DANA PerezCDOB:1990???Age:35 Y???Sex:FemaleDate:05/20/2025Phone:[phone]:[address] [facility], [address] [facility], [place], [place]Hap:Sabiha Aviles Subjective: * Chief Complaints: * D epression Billing Information: * Procedure Codes: * Electronic signature of FABI Perez on 08/09/2025 at 10:19 AM EST Sign off status: Pending * Provider: FABI Acevedo Date: 0 05/20/2025 Generated for Printing/Faxing/eTransmitting on:?08/09/2025 10:19 AM EST
--- OUTSIDE RECORDS SUMMARY | 2025-07-30 14:00 | XMS_ITS | Encounter Summary ---
Author Organization [facility] tem Address [id number] [address] [place] [address] Care Team Providers Care Cement Side Laster Name Role Phone Services, [facility] Primary Care Provider Reason for Visit * ReasonCommentsCHTNbmi Encounter Details DateTypeDepartmentCare Team (Latest Contact Info)Sjozzlsssbx13/09/2025 2:00 PM ESTOffice Visit Maternal- Medicine at [facility] [address] [place] [phone] Sheila Cruz MD [address] [facility] 1st [place] [address] Chronic hypertension affecting (Primary Dx); Anxiety disorder affecting , antepartum; Severe obesity due to excess calories affecting , antepartum ([facility]); Acute palmoplantar pustular psoriasis; Depression affecting ; [...] to get more.Never True07/30/2025 Estimated Date of KcheofeeEjrfrdzaTng93/11/2026ased on last menstrual period of 12/26/2024Sex and Gender InformationValueDate RecordedSex Assigned at BirthNot on fileLegal WumYieiyl63/09/2023 2:11 PM ESTGender IdentityNot on fileSexual OrientationNot on fileTravel HistoryTravel StartTravel AvyTvnxrkshaucy44/25/2025 07/20/2025documented as of this encounter Last Filed Vital Signs Vital SignReadingTime TakenCommentsBlood Tmwxmudg924/8707/30/2025 1:48 PM EST Evhvm039207/30/2025 1:48 PM ESTTemperature--Respiratory Rate--Oxygen Saturation-- Inhaled Oxygen Concentration--Rgvaea673.9 kg (290 lb 12.8 oz)07/30/2025 1:48 PM ESTHeight--Body Mass Index44.23005/17/2025 7:51 AM EDTdocumented in this encounter Functional Status * BPAnswerDate of RdvmfbjcjzYvlhdj492/8707/30/2025 1:48 PM Denita Coats MA * PulseAnswerDate of MwsbckvsfnAnuofd4543/09/2025 1:48 PM Denita Coats MA * WeightAnswerDate of TgakhmusbaVhnkki2948.8109/30/2024 1:48 PM Denita Coats MA * Food InsecurityQuestionAnswerDate of AssessmentAuthorWithin the past 12 months the food we bought just didn't last and we didn't have money to get more.Never True07/30/2025 1:54 PM Denita Coats MAWithin the past 12 months we worried whether our food would run out before we got money to buy more.Never True07/30/2025 1:54 PM Denita Coats MA * Alcohol UseQuestionAnswerDate of AssessmentAuthorQ2: How many drinks containing alcohol do you have on a typical day when you are drinking?Patient does not drink07/30/2025 1:52 PM Denita Coats MA * BPAnswerDate of BtupfdgklcEtaphp606 1:48 PM Denita Coats MA * PulseAnswerDate of ZykhkeriihEsnedy8392/09/2025 1:48 PM Denita Coats MA * WeightAnswerDate of HpgujmridsTiwfqm0380.8109/30/2024 1:48 PM Denita Coats MA documented as of this encounter Mental Status * BPAnswerEntry StuyGxandz848/ 1:48 PM Denita Coats MA * PulseAnswerEntry LhieEskmsr8449/09/2025 1:48 PM Denita Coats MA documented in this encounter Progress Notes * Denita Franklin [...] patient is in complete care of her oral surgery physician. Patient does have ultrasound and office visit [...] procedures Referring and communicating with other health health care specialist (not separately reported) Documenting clinical information in the electronic or other health record Sheila Cruz MD Maternal- Medicine [facility] [address] [address] This document was created with [employer] technology. Though I make every effort to review the dictation as it is transcribed, on occasion the spoken word can be misinterpreted by the technology leading to inappropriate words, phrases, or sentences. This note is addressed to the requesting provider as a consultation for clinical guidance. Specificmedical abbreviations are occasionally used and those are generally approved by the [place]?Board of?Obstetrics and?Gynecology?as well as?Rama???s abbreviations. The above plan of care was based solely on the diagnoses for which a consultation was requested. ?More frequent testing may be indicated based on her other medical/obstetrical conditions. The management of other or medical conditions is beyond the scope of requested consultation and will c ontinue to be followed by the primary oral surgery physician or primary care provider. Note to patient: [...] Plan of Treatment DateTypeDepartmentCare Team (Latest Contact Info)Gklsyrrddxo71/15/2026 2:00 PM ESTTelemedicine Maternal- Medicine at [facility] [address] [place] [address] Sheila Cruz MD [address] [address] documented as of this encounter Visit Diagnoses Diagnosis Chronic hypertension affecting - Primary Anxiety disorder affecting , antepartum Severe obesity due to excess calories affecting , antepartum ([facility]) Acute palmoplantar pustular psoriasis Other psoriasis Depression affecting 30 weeks gestation of documented in this encounter Care Teams Team MemberRelationshipSpecialtyStart DateEnd Date [facility], [facility] [address] [place], [place] PCP - GeneralFamily Medicine11/03/24documented as of this encounter
--- OUTSIDE RECORDS SUMMARY | 2025-08-06 08:40 | XMS_ITS | Encounter Summary ---
Author Organization [facility] Address [address] [place] [address] Care Team Providers Care Oyster Tonger Name Role Phone Judy Caal Unavailable Unavailable Reason for Visit * ReasonCommentsRoutine Visit Encounter Details DateTypeDepartmentCare Team (Latest Contact Info)Qlpueyhvvqv96/16/2025 8:40 AM ESTRoutine [facility] [address] [place] [phone] Caesar Broderick DO [address] [place] [address] 31 weeks gestation of ([facility]); Third trimester ([facility]); H/O pre-eclampsia in prior , currently ([facility]); Vitamin D deficiency Social History Tobacco UseTypesPacks/DayYears UsedDateSmoking Tobacco: NeverSmokeless Tobacco: NeverAlcohol UseStandard Drinks/WeekCommentsNever0 (1 standard drink = 0.6 oz pure alcohol)PHQ-2AnswerDate RecordedPatient Health Questionnaire-2 Score0 07/30/2025Estimated Date of ZzqexdwsStkbchnoGbk87/11/2026ased on last menstrual period of 12/26/2024Sex and Gender InformationValueDate RecordedSex Assigned at BirthNot on fileLegal FpfSgscpm54/06/2024 9:48 AM EDTGender Identity Not on fileSexual OrientationNot on fileTravel HistoryTravel StartTravel End Twblhvvmmnqt94documented as of this encounter Last Filed Vital Signs Vital SignReadingTime TakenCommentsBlood Rjfmhmej172/6808/06/2025 8:43 AM EST Pulse--Temperature--Respiratory Rate--Oxygen Saturation--Inhaled Oxygen Concentration--Exaulk874 kg (291 lb 1.9 oz)08/06/2025 8:43 AM ESTHeight--Body Mass Index44.261 2:39 PM EDTdocumented in this encounter Progress Notes * Kitaesther Griggs LPN - 08/06/2025 8:40 AM EST Reason for [...] am. Do not crush, chew, or split. Ofvxdoix-Gqr-Yj-FA ( 1 + IRON PO) sertraline (ZOLOFT) 50 mg, Every 24 hours ALLERGIES No Known Allergies PROBLEMS Active Ambulatory Problems Diagnosis Date Noted Fallopian tube disorder 07/30/2024 PCOS (polycystic ovarian syndrome) 07/30/2024 induced hypertension, antepartum ([facility]) 04/25/2025 Vitamin D deficiency 05/23/2025 H/O pre-eclampsia in prior , currently ([facility]) 05/23/2025 Resolved Ambulatory Problems Diagnosis Date Noted [...] nursing note reviewed. Exam conducted with a telecommunications manager present. Vitals: Estimated body mass index is 44.26 kg/m?? as calculated from the following: Height as of 06/11/24: 5' 8 . Weight as of this encounter: 291 lb 1.9 oz. BP: 122/68 Patient's last menstrual period was 12/26/2024. Assessment/Plan ICD-10-CM 1. 31 weeks gestation of ([facility]) Z3A.31 POCT urinalysis dipstick manually resulted 2. Third trimester ([facility]) Z34.93 POCT urinalysis dipstick manually resulted 3. H/O pre-eclampsia in prior , currently ([facility]) O09.299 4. Vitamin D deficiency E55.9 Assessment/Plan [...] Plan of Treatment DateTypeDepartmentCare Team (Latest Contact Info)Qzccsasktrz41/30/2025 1:20 PM ESTRoutine [facility] [address] [place] [phone] Bethany Simon PA [address] [place] [address] 12/16/2025 3:00 PM EDTOffice Visit [facility] [address] [place] [phone] Caesar Broderick DO [address] [place], [place] [phone] documented as of this encounter Procedures Procedure NamePriorityDate/TimeAssociated DiagnosisCommentsPOCT URINALYSIS TWOLZJKRFmkndju74/16/2025 8:46 AM EST 31 weeks gestation of ([facility]) Third trimester ([facility]) documented in this encounter Results * (ABNORMAL) [...] / LateralityCollection Method / VolumeCollection Time Received MriqFtxwi80/16/2025 8:46 AM EST Narrative Authorizing ProviderResult TypeResult StatusCorey Davie DOPOINT OF CARE TEST ENTER/EDIT ORDERABLESFinal Result documented in this encounter Visit Diagnoses Diagnosis 31 weeks gestation of ([facility]) Third trimester ([facility]) state, incidental H/O pre-eclampsia in prior , currently ([facility]) Vitamin D deficiency documented in this encounter Care Teams Team MemberRelationshipSpecialtyStart DateEnd Date Andres Caalyssa PCP - [facility] 02/20/24documented as of this encounter
--- NOTE | 2025-08-09 10:18 | US_ITS ---
The [place] [id number] Patient Name: ELLEN MITCHELL MRN: [id number] date: 1990 Sex: F Assigned Patient Location: [facility] Current Patient Location: [facility] Accession/Order Number: [id number] Exam Date: 08/09/2025 10:20 Report Date: 08/09/2025 10:47 At the request of: ISRAEL LUNA DO Procedure: US OB BPP w non-stress BIOPHYSICAL PROFILE: CLINICAL INFORMATION: Chronic hypertension affecting O10.919 COMPARISON: 08/02/2025 There is a single live intrauterine gestation in cephalic presentation. The reported gestational age is 32 weeks 2 days. The heart rate measures 150 beats per minute. FINDINGS: TONE: 1 or more episodes of activity extension and flexion of extremity or opening and closing of the hand [Y] 2/2 GROSS BODY MOVEMENTS: 3 or more discrete body or limb movements [Y] 2/2 BREATHING MOVEMENTS: 1 or more episodes of breathing lasting at least 30 seconds [Y] 2/2 CHETAN: A single deepest vertical pocket of amniotic fluid greater than 2 cm [Y] 2/2 CHETAN: 12.5 cm. Total score: 8/8 US/US OB BPP w non-stress IMPRESSION: NORMAL BIOPHYSICAL PROFILE Impression dictated by: Kita Florentino M.D. 08/09/2025 10:47 AM Dictation Location: [place] [address] Electronically authenticated by: [id number] Y Date: 08/09/2025 10:47
--- OUTSIDE RECORDS SUMMARY | 2025-08-09 10:20 | XMS_ITS | Encounter Summary ---
Author Organization [facility] Address [address] [place] [address] Care Team Providers Care Wireless Consultant Name Role Phone Judy Caal Unavailable Unavailable Encounter Details DateTypeDepartmentCare Team (Latest Contact Info)Qgbqrfnxuda70/16/2025bstract LIANA HEAD [address] [place] [address] Caesar Broderick DO [address] [place] [address] Social History Tobacco UseTypesPacks/DayYears UsedDateSmoking Tobacco: NeverSmokeless Tobacco: NeverAlcohol UseStandard Drinks/WeekCommentsNever0 (1 standard drink = 0.6 oz pure alcohol)PHQ-2AnswerDate RecordedPatient Health Questionnaire-2 Score0 07/30/2025Estimated Date of EgeaicysJmjbawsdFwn16/11/2026ased on last menstrual period of 12/26/2024Sex and Gender InformationValueDate RecordedSex Assigned at BirthNot on fileLegal EprQudxze62/06/2024 9:48 AM EDTGender Identity Not on fileSexual OrientationNot on fileTravel HistoryTravel StartTravel End Myxdhjjfbhyy90documented as of this encounter Plan of Treatment DateTypeDepartmentCare Team (Latest Contact Info)Lsgsbskmrgo83/30/2025 1:20 PM ESTRoutine LIANA HEAD [address] [place] [address] Bethany Simon PA [address] [place] [address] 12/16/2025 3:00 PM EDTOffice Visit [facility] [place] [facility] [address] [facility] [place] [address] Caesar Broderick DO [address] [place] [address] documented as of this encounter Visit Diagnoses Not on filedocumented in this encounter Care Teams Team MemberRelationshipSpecialtyStart DateEnd Date Judy Caal PCP - [facility]02/20/24documented as of this encounter
--- OUTSIDE RECORDS SUMMARY | 2025-08-09 10:20 | XMS_ITS | Clinical Summary ---
Author Organization [facility] Healthcare Address [address] [place] [address] Care Team Providers Care Landing Gear Mechanic Name Role Phone Judy Caal Unavailable [...] MG 24 hr tablet Indications:Chronic hypertension affecting ([facility])Take 1 tablet (60 mg) by mouth at noon and 1 tablet (60 mg) in the evening. Take 1 tablet in the am. Do not crush, chew, or split. 30 tablet 6Active Efycyfae-Zkw-Ot-FA ( 1 + IRON PO) PrenatalActive magnesium oxide (Mag-Ox) 400 mg tablet as directed OrallyActive magnesium oxide (Mag-Ox) 400 MG tablet Take 1 tablet by mouth Daily5Active metroNIDAZOLE (Metrogel) 0.75 % vaginal gel Indications:BV (bacterial vaginosis)Insert into the vagina Daily for 5 days 70 g Expired metFORMIN XR (Glucophage-XR) 500 MG 24 hr tablet 1 (one) time each day at the same time08/06/2025Discontinued Active Problems ProblemNoted DateDiagnosed DateVitamin D kmlvlibjxe10/02/2025H/O pre-eclampsia in prior , currently ([facility])05/23/2025Pregnancy induced hypertension, antepartum ([facility])04/25/2025Fallopian tube ijfxqdca97/09/2024 PCOS (polycystic ovarian syndrome)07/30/2024Estimated Date of Delivery CnmltqsrBuf32/11/2026ased on last menstrual period of 12/26/2024 Encounters DateTypeDepartmentCare HeknDvxzegtuyoa05/16/2025 8:40 AM [place] [address] [place] Broderick, DO 31 weeks gestation of ([facility]); Third trimester ([facility]); H/O pre-eclampsia in prior , currently ([facility]); Vitamin D zrbduoyjvp25/16/2025bstract [facility] [place] [address] [place] Broderick, DO 5Bamboo flowsheet [facility] [place] [facility] [place] [address] [place] Broderick, DO 08/05/20251061Cxqwjr61/12/2025Clinisync Result Encounter NOMS External Department Unsolicited [place] Broderick, DO 5Clinisync Result Encounter NOMS External Department Unsolicited [place] Broderick, DO 07/30/2025Patient Outreach [facility] [address] [place] [address] Behtany Sheehan LPN 07/24/2025 11:20 AM ESTRoutine [facility] [place] [facility] [place] [address] [place] Broderick, DO Third trimester ([facility]); 30 weeks gestation of ([facility])5Bamboo flowsheet [facility] [place] [facility] [place] [address] [place] Broderick, DO 07/23/20252741Hsvhgw50/02/2025Clinisync Result Encounter NOMS External Department Unsolicited DavieIsrael koch, DO 5Clinisync Result Encounter NOMS External Department Unsolicited DavieJuliocesary, DO 5Clinisync Result Encounter NOMS External Department Unsolicited DavieIsrael koch, DO 07/09/2025 1:20 PM ESTRoutine [facility] [place] [facility] [address] [place] [address] Bethany Simon PA 27 weeks gestation of ([facility]); Second trimester ([facility]); H/O pre-eclampsia in prior , currently ([facility]); Vitamin D deficiency; Chronic hypertension affecting ([facility]); BV (bacterial vaginosis)5Bamboo flowsheet [facility] [place] [facility] [address] [facility] [place] [address] Bethany Simon PA 5Clinisync Result Encounter NOMS External Department Unsolicited [place] Broderick, DO 07/05/2025Telephone [facility] [place] [facility] [address] [facility] [place] [address] Tsering iWllingham MA 5Clinisync Result Encounter NOMS External Department Unsolicited [place] Broderick, DO 07/02/2025Patient Outreach [facility] [address] [place] [address] Bethany Sheehan LPN 06/24/2025 1:50 PM ESTRoutine [facility] [place] [facility] [address] [facility] [place] [address] [place] Broderick, DO Second trimester ([facility]); 25 weeks gestation of ([facility]); H/O pre-eclampsia in prior , currently ([facility]); Vitamin D deficiency; Chronic hypertension affecting ([facility]); Diabetes mellitus vogfvmmty09/03/2025amboo flowsheet [facility] [address] [facility] [place] [address] [place] Broderick DO 06/23/20253212Bvhrhu95/15/2025 8:50 AM EDTRoutine [facility] [address] [facility] [place] [address] [place] Qiu NP Second trimester ([facility]); 23 weeks gestation of ([facility])06/05/2025amboo flowsheet [facility] [place] [facility] [address] [facility] [place] [address] Rosie Qiu NP 06/04/2025Patient Outreach [facility] [address] [place] [address] Bethany Sheehan LPN 05/31/2025bstract [facility] [address] [place] [address] Bethany Sheehan LPN 05/30/2025 3:20 PM EDTRoutine [facility] [place] [facility] [address] [facility] [place] [address] [place] Qiu NP Chronic hypertension affecting ([facility]) (Primary Dx); Second trimester ([facility]); 22 weeks gestation of ([facility])05/30/2025amboo flowsheet [facility] [place] [facility] [address] [facility] [place] [address] [place] Qiu NP 05/29/20251098Jfbrlu28/07/2025Telephone [facility] [address] [facility] [place] [address] Melanie Almaraz MA 05/23/2025 2:30 PM EDTRoutine [facility] [address] [facility] [place] [address] [place] Qiu, JEM Second trimester ([facility]); 21 weeks gestation of ([facility]); induced hypertension, antepartum ([facility]); Vitamin D deficiency; H/O pre-eclampsia in prior , currently ([facility])05/23/2025 Clinisync Result Encounter NOMS External Department Unsolicited [place] Broderick, 05/23/2025amboo flowsheet [facility] [place] [facility] [address] [facility] [place] [address] [place] Qiu, JEM 05/22/20258148Ltfrfk80/29/2025bstract [facility] [place] [facility] [address] [facility] [place] [address] Tsering Willingham MA 05/17/2025External Result Encounter [facility] [address] [facility] [place] [place] [address] [place] Broderick, 05/15/2025Refill [facility] [address] [place] [address] [place] Broderick, Second trimester ([facility]); Gestational hypertension, antepartum ([facility])05/15/2025Telephone [facility] [place] [facility] [address] [facility] [place] [address] [place] Broderick, from Last 3 Months Family History Medical HistoryRelationNameCommentsepilepsyBrotherDiabetesFatherDerrick Cruz HTNFatherDerrick HofferHeart failureFather's Brother 1Elmer HofferHeart failure Father's Brother 2Elmer HofferHeart failureFather's Brother 3Elmer HofferHeart failureFather's Brother 4Elmer HofferCancerMaternal GrandfatherFrank Ross Pancreatic cancerMaternal GrandfatherFrank RossRheum arthritisMotherVanessa DoriserhtnMotherVanessa HofferRelationNameStatusCommentsBrotherFatherDerrick HofferAliveFather's Brother 1Elmer HofferAliveFather's Brother 2Elmer Cruz AliveFather's Brother 3Elmer HofferAliveFather's Brother 4Elmer HofferAlive Maternal GrandfatherFrank RossAliveMotherVanessa HofferAlive Social History Tobacco UseTypesPacks/DayYears UsedDateSmoking Tobacco: NeverSmokeless Tobacco: Never Tobacco Cessation:Counseling Given: Not Answered Alcohol UseStandard Drinks/WeekCommentsNever0 (1 standard drink = 0.6 oz pure alcohol)PHQ-2AnswerDate RecordedPatient Health Questionnaire-2 Fbgzd21809/30/2024 Estimated Date of DctjtnwoYaanslatUph23/11/2026ased on last menstrual period of 12/26/2024Sex and Gender InformationValueDate RecordedSex Assigned at BirthNot on fileLegal BwmDeswcx91/06/2024 9:48 AM EDTGender IdentityNot on file Sexual OrientationNot on fileTravel HistoryTravel StartTravel EndPen[place] Last Filed Vital Signs Vital SignReadingTime TakenCommentsBlood Vaiabjpi101/6808/06/2025 8:43 AM EST Pulse--Temperature--Respiratory Rate--Oxygen Saturation--Inhaled Oxygen Concentration--Tmxmoq141 kg (291 lb 1.9 oz)08/06/2025 8:43 AM RTVYbdbqw848.7 cm (5' 8 )06/11/2024 2:39 PM EDTBody Mass Index44.261 2:39 PM EDT Plan of Treatment DateTypeDepartmentCare Team (Latest Contact Info)Txpmxactqfg30/30/2025 1:20 PM ESTRoutine [facility] [place] [facility] [address] [facility] [place] [address] Bethany Simon PA [address] [facility] [place] [address] 12/16/2025 3:00 PM EDTOffice Visit [facility] [place] [facility] [address] [facility] [place] [address] [place] Broderick, [address] [place] [address] Health MaintenanceDue DateLast DoneCommentsCOVID-19 Vaccine (2024- season) 2025Influenza Vaccine (#1)2025HPV/Maiwgm43//080783/3Cervical Cancer Shspmbjfk23/21/2028Pap Smear/, 3Pneumococcal Vaccine: Pediatrics (0 to 5 Years) and At-Risk Patients (6 to 64 Years)Aged Out No longer eligible based on patient's age to complete this topic Procedures Procedure NamePriorityDate/TimeAssociated DiagnosisCommentsPOCT URINALYSIS AXDBYDLOWjdxlea41/16/2025 8:46 AM EST 31 weeks gestation of ([facility]) Third trimester ([facility]) US OB BPP W NON-SKPNKO7508/02/2025 4:49 PM EST OB SMPKAH5908/02/2025 4:46 PM EST POCT URINALYSIS OYIRCPLUKuubcpe99/03/2025 11:40 AM EST 30 weeks gestation of ([facility]) US OB BPP W NON-NBTINK3107/23/2025 10:49 AM EST OB XDGERJ3907/12/2025 2:57 PM EST US OB BPP W NON-DKRLYT8607/12/2025 2:56 PM EST POCT URINALYSIS XBQRBCDDOoxcqrr63/18/2025 1:46 PM EST 27 weeks gestation of ([facility]) Second trimester ([facility]) GLUCOSE TOLERANCE 3 LXMRRiycgtl76/15/2025 8:09 AM EST ALL CBC WITH AUTO QVXOBoovnqq59/15/2025 8:09 AM EST GLUCOSE 1 PIQHTixgddb10/13/2025 10:25 AM EST ALL CBC WITH AUTO PYSXSliekyh13/13/2025 10:25 AM EST POCT URINALYSIS FRXGAGOLGucxdbx93/03/2025 1:51 PM EST Second trimester ([facility]) POCT URINALYSIS MDATOHRPPljokag36/15/2025 9:03 AM EDT Second trimester ([facility]) POCT URINALYSIS CKGBQSGOArmxiup43/09/2025 3:24 PM EDT 22 weeks gestation of ([facility]) AFP, SERUM, OPEN SPINA ZJLVNSHvycahp58/02/2025 2:30 PM EDT US OB 14+ WEEKS ANATOMY SCAN05/17/2025 4:39 PM EDT PAP TJALPIlqgogq47/21/2025 12:00 AM EDTfrom Last 3 Months or [...] Location / LateralityCollection Method / VolumeCollection TimeReceived ZvqqJxepr09/16/2025 8:46 AM EST Narrative Authorizing ProviderResult TypeResult StatusCorey Davie DOPOINT OF CARE TEST ENTER/EDIT ORDERABLESFinal Result * US OB BPP W NON-STRESS (08/02/2025 4:49 PM EST) Only the most recent of3 resultswithin the time period is included. Anatomical RegionLateralityModalityOtherSpecimen (Source)Anatomical Location / LateralityCollection Method / VolumeCollection TimeReceived Time08/02/2025 4:49 PM EST Narrative 08/02/2025 4:52 PM EST [facility] ?[address] ? [place] [address] ? Ultrasound Report ? Signed ? Patient: ELLEN RAMIRES ?MR#: [id number] ?? : 1990 ?Acct:[id number] ?? Age/Sex: 35 / F ?ADM Date: 08/02/25 ?? Loc: US ? Attending Dr: Israel Broderick D.O. ? Ordering Physician: Israel Broderick D.O. ?? Date of Service: 08/02/25 ?? Procedure(s): US OB BPP w non-stress ?? Accession Number(s): [id number] ? cc: Israel Broderick D.O.; Judy Yepez COMPLIANCE OFFICER ? [facility] ? [address] ? [place] [address] ? Patient Name: ?? ELELN RAMIRES ? MRN: [id number] ? date: 1990 ?Sex: F ?? Assigned Patient Location: US ?? Current Patient Location: ? Accession/Order Number: [id number] ?? Exam Date: 08/02/2025 ??10:15 ?Report Date: [...] M.D. ??08/02/2025 4:49 PM ? Dictation Location: RADIO-PC-23 ? Electronically authenticated by: [id number] ??Y ?? Date: 08/02/2025 ??16:49 ? Dictated By: ?Raffy Gibson M.D. ? Signed By: ?08/02/25 1652 ? DD/ 1649 ? TD/TT: ? Tip Stretcher: Procedure Note Radiology, Radiologist, - 08/02/2025 [place] [address] Ultrasound Report Signed Patient: ELLEN RAMIRES JMR#: [id number] : 1990Acct:[id number] Age/Sex: 35 / FADM Date: 08/02/25 Loc: US Attending Dr: Israel Broderick D.O. Ordering Physician: Israel Broderick D.O. Date of Service: 08/02/25 Procedure(s): US OB BPP w non-stress Accession Number(s): [id number] cc: Israel Broderick D.O.; Judy Yepez [place] [address] Patient Name: ELLEN RAMIRES MRN: [id number] date: 1990 Sex: F Assigned Patient Location: Current Patient Location: Accession/Order Number: [id number] Exam Date: 08/02/2025 10:15 Report Date: 08/02/2025 [...] Gibson M.D. 08/02/2025 4:49 PM Dictation Location: [place] [address] Electronically authenticated by: [id number] Y Date: 6:49 Dictated By: Raffy Gibson M.D. Signed By:08/02/251651 DD/ 48 TD/TT: Tip Stretcher: Authorizing ProviderResult TypeResult StatusCorenitesh Broderick DOCLINISYNC IMAGINGFinal Result * US OB GROWTH (08/02/2025 4:46 PM EST) Only the most recent of2 resultswithin the time period is included. Anatomical RegionLateralityModalityOtherSpecimen (Source)Anatomical Location / LateralityCollection Method / VolumeCollection TimeReceived Time08/02/2025 4:46 PM EST Narrative 08/02/2025 4:49 PM EST [facility] ?[address] ? [place] [address] ? Ultrasound Report ? Signed ? Patient: RAMIRES,ELLEN J ?MR#: [id number] ?? : 1990 ?Acct:[id number] ?? Age/Sex: 35 / F ?ADM Date: 12/12/25 ?? Loc: US ? Attending Dr: Israel Broderick D.O. ? Ordering Physician: Israel Broderick D.O. ?? Date of Service: 08/02/25 ?? Procedure(s): US OB growth ?? Accession Number(s): [id number] ? cc: Israel Broderick D.O.; Judy Yepez COMPLIANCE OFFICER ? [facility] ? [address] ? [place] [address] ? Patient Name: ?? ELLEN RAMIRES ? MRN: [facility]:[id number] ? date: 1990 ?Sex: F ?? Assigned Patient Location: US ?? Current Patient Location: ? Accession/Order Number: [id number] ?? Exam Date: 08/02/2025 ??10:15 ?Report Date: [...] Dictation Location: RADIO-PC-23 ? Electronically authenticated by: [id number] ??Y ?? Date: 08/02/2025 ??16:46 ? Dictated By: ?Raffy Gibson M.D. ? Signed By: ?08/02/ 1649 ? DD/ ? TD/TT: ? Tip Stretcher: Procedure Note Radiology, Radiologist, - 08/02/2025 [place] [address] Ultrasound Report Signed Patient: ELLEN RAMIRES JMR#: [id number] : 1990Acct:[id number] Age/Sex: 35 / FADM Date: 08/02/25 Loc: US Attending Dr: Israel Broderick D.O. Ordering Physician: Israel Broderick D.O. Date of Service: 08/02/25 Procedure(s): US OB growth Accession Number(s): [id number] cc: Israel Broderick D.O.; Judy Yepez NP The [place] [id number] Patient Name: ELLEN RAMIRES MRN: [id number] date: 1990 Sex: F Assigned Patient Location: US Current Patient Location: Accession/Order Number: [id number] Exam Date: 08/02/2025 10:15 Report Date: 08/02/2025 [...] Gibson M.D. 08/02/2025 4:46 PM Dictation Location: [place] [address] Electronically authenticated by: [id number] Y Date: 6:46 Dictated By: Raffy Gibson M.D. Signed By:08/02/251648 DD/ 45 TD/TT: Tip Stretcher: Authorizing ProviderResult TypeResult StatusCorey Davie DOCLINISYNC IMAGINGFinal Result * GLUCOSE TOLERANCE 3 HOUR [...] BLOOD ORDERABLES Final ResultPerforming OrganizationAddressCity/State/ZIP CodePhone Number [facility] * (ABNORMAL) ALL CBC WITH AUTO DIFF [...] - 35.2 g/dLTBHTBH RDW13.011.0 - 15.0 %TBHTBH [id number] - 450 10 3/uLTBHTBH MPV10.59.5 - 13.5 [...] Davie DOCLINISYNCFinal Result Performing OrganizationAddressCity/State/ZIP CodePhone Number [facility] * (ABNORMAL) GLUCOSE 1 HOUR (07/04/2025 10:25 AM EST)ComponentValueRef RangeTest MethodAnalysis TimePerformed AtPathologist SignatureGLUCOSE 1 QFRV580(H)<130 mg/dLTBHSpecimen (Source)Anatomical Location / LateralityCollection Method / VolumeCollection TimeReceived Time07/04/2025 10:25 AM EST07/04/2025 10:33 AM EST Narrative [facility] - 07/04/2025 11:32 AM EST Authorizing ProviderResult TypeResult StatusCorey Davie MCNAIR BLOOD ORDERABLES Final ResultPerforming OrganizationAddressCity/State/ZIP CodePhone Number [facility] H * AFP, SERUM, OPEN SPINA BIFIDA (05/23/2025 2:30 PM EDT)ComponentValueRef Range Test MethodAnalysis TimePerformed AtPathologist SignatureRESULTSReport.TBHTEST RESULTS:*Screen Negative*.TBHGEST. AGE ON COLLECTION DATE21.1. weeksTBHGESTAT. AGE BASED ONLMP.TBHComment: Recalculations are not recommended when gestational dating by LMP and ultrasound are within 10 days. MATERNAL AGE AT EDD33.5. yrTBHRACECaucasian.GOUKNNQJN921. lbsTBHINSULIN DEP DIABETESNo.TBHMULTIPLE GESTATIONNo.TBHAFP VALUE38.2. ng/mLTBHAFP MOM0.85.TBHOSBR RISK 1 MF73710.TBHINTERPRETATIONComment.TBHComment: Interpretation: Screen Negative This result is screen [...] Customer Services to discuss available options. ??The [employer] recommends amniocentesis be offered to women age 35 and older. COMMENT:Comment.TBHComment: Gema Ortez, Ph.D., [facility] Director References: Available Upon Request. Multiples Of Median Cutoffs ?For AFP Elevations Kumar ?? 2.5 ? Black ?2.8 IDD ? 2.0 ? Twins ?4.5 ?Abbreviation Definitions IDD - Insulin Dep Diabetes OSBR - Open Spina Bifida Risk For further inquiries contact [employer] [facility] at [phone]. This test was developed and its performance characteristics determined by [facility]. It has not been cleared or approved by the Food and Drug Administration. Performed at: ??[facility] [address] [place], [place] ??[id number] Survey Workers Supervisor: Jesus Saleh [facility], Phone: ??[phone] Specimen (Source)Anatomical Location / LateralityCollection Method / Volume Collection TimeReceived Time05/23/2025 2:30 PM EDT1 2:40 PM EDT Narrative [facility]IN[facility] - 05/25/2025 1:07 AM EDT N N LMP [id number] 2 9 N 1 282 N N N N N White/ Authorizing ProviderResult TypeResult StatusCorey Davie DOLAB BLOOD ORDERABLES Final ResultPerforming OrganizationAddressCity/State/ZIP CodePhone Number [facility] * US OB 14+ weeks anatomy scan (05/17/2025 4:39 PM EDT)Anatomical Region LateralityModalityBodyUltrasoundSpecimen (Source)Anatomical Location / LateralityCollection Method / VolumeCollection TimeReceived Time05/17/2025 4:39 PM EDT Narrative 05/17/2025 4:39 PM EDT THIS EXAM WAS PERFORMED AT [facility] NAME: ??PAULA HUGHES : 1990 SEX: F Accession Number: [id number] ORDERING PHYSICIAN: ISRAEL BRODERICK REFERRING PHYSICIAN: ISRAEL BRODERICK Coding Procedures ? 12189: Ultrasound, uterus, real time with image documentation, and maternal evaluation ? plus detailed anatomic examination, transabdominal approach;single or first gestation ? 27800: Ultrasound, uterus, real time with image documentation, transvaginal Indication Screening for Anatomic Survey , Screening for cervical length , Anxiety , Depression , Gestational hypertension without significant proteinuria , Obesity in , History of gestational hypertension. History OB History ? 2. Para 1 ? K1O0P0X4 Maternal Assessment Physical Exam ??Height 173 cm, [...] (oz) ? 13 oz EFW by: ?Hadlock (FIE-MP-GP-FL) Extended Tibia ??23.0 mm 18w 1d 2% Gavino Nasal bone ? 5.4 mm ?? 6% [facility] / Face / Neck Cephalic index [...] Heart/Thorax: RVOT view. LVOT view. 3-vessel view. 4-qzvirm-dudncgx view. Situs. Bicaval view. Cardiac position. ? [...] ovarian cyst noted. Recommendations Please see [facility] documentation from today. The patient is scheduled in four to six week(s) to complete anatomic survey. Subsequent follow up or other follow up as clinically determined by primary OB provider unless otherwise specified by [facility]. Results forwarded to ordering provider so they can follow up with the patient as necessary. Procedure Note Radiology, Radiologist, - 05/17/2025 THIS EXAM WAS PERFORMED AT [facility] NAME: PAULA HUGHES : 1990 SEX: F Accession Number: [id number] ORDERING PHYSICIAN: ISRAEL BRODERICK REFERRING PHYSICIAN: ISRAEL BRODERICK Coding Procedures 08041: Ultrasound, uterus, real time with image documentation, and maternal evaluation plus detailed anatomic examination, transabdominalapproach;single or first gestation 02504: Ultrasound, uterus, real time with imagedocumentation, transvaginal Indication Screening for Anatomic Survey , Screening for cervical length , Anxiety , Depression , Gestational hypertension without significant proteinuria , Obesity in , History of gestational hypertension. History OB History 2. Para 1 [id number] Maternal Assessment Physical Exam Height 173 cm, [...] EFW (oz) 13 oz EFW by: Hadlock (EJL-XU-XH-FL) Extended Tibia 23.0 mm 18w 1d 2% [...] Heart/Thorax: RVOT view. LVOT view. 3-vessel view. 2-zripuj-vvlrknh view.Situs. Bicaval view. Cardiac position. Cardiac axis. [...] DOIMG OB US PROCEDURES Final Result * Pap [...] Date Judy Caal PCP - [facility]02/20/24
--- OUTSIDE RECORDS SUMMARY | 2025-08-09 10:20 | XMS_ITS | Encounter Summary ---
Author Organization [facility] tem Address [id number] [address] [place] [address] Care Team Providers Care Sports Physiotherapist Name Role Phone Services, [facility] Primary Care Provider Encounter Details DateTypeDepartmentCare Team (Latest Contact Info)Wbtqqjjzziu47/07/2025Travel Social History Tobacco UseTypesPacks/DayYears UsedDateSmoking Tobacco: NeverSmokeless [...] money to get more.Never True05/17/2025Estimated Date of UjddbsxoBfvafhwnDga74/11/2026ased on last menstrual period of 12/26/2024Sex and Gender InformationValueDate RecordedSex Assigned at BirthNot on fileLegal Sex Wvwcrd9809/30/2022 2:11 PM ESTGender IdentityNot on fileSexual OrientationNot on fileTravel HistoryTravel StartTravel OqaWrltdalgosap35 documented as of this encounter Plan of Treatment DateTypeDepartmentCare Team (Latest Contact Info)Dvlktphqrek29/15/2026 2:00 PM ESTTelemedicine Maternal- Medicine at [facility] [address] [place] [phone] Sheila Cruz MD [address] [facility] [address] [place] [address] documented as of this encounter Visit Diagnoses Not on filedocumented in this encounter Care Teams Team MemberRelationshipSpecialtyStart DateEnd Date Services, [facility] [address] [place], [place] PCP - GeneralFamily Medicine11/03/24documented as of this encounter
--- OUTSIDE RECORDS SUMMARY | 2025-08-09 10:20 | XMS_ITS | Encounter Summary ---
Author Organization [facility] Healthcare Address [address] [place] [address] Care Team Providers Care Php Wordpress Developer Name Role Phone Judy Caal Unavailable Unavailable Encounter Details DateTypeDepartmentCare Team (Latest Contact Info)Muqbfscrall82/09/2025Patient Outreach [facility] [address] [place] [phone] Bethany Sheehan LPN [address] [place] [address] Social History Tobacco UseTypesPacks/DayYears UsedDateSmoking Tobacco: NeverSmokeless Tobacco: NeverAlcohol UseStandard Drinks/WeekCommentsNever0 (1 standard drink = 0.6 oz pure alcohol)PHQ-2AnswerDate RecordedPatient Health Questionnaire-2 Score0 07/30/2025Estimated Date of LmmamjkzZzjgjpdhHxv03/11/2026ased on last menstrual period of 12/26/2024Sex and Gender InformationValueDate RecordedSex Assigned at BirthNot on fileLegal ZuiEixgaw13/06/2024 9:48 AM EDTGender Identity Not on fileSexual OrientationNot on fileTravel HistoryTravel StartTravel End Phqdtrgkqasg91documented as of this encounter Functional Status * Over the past 2 weeks, how often have you been bothered by any of the following problems?QuestionAnswerDate of AssessmentAuthorLittle interest or pleasure in doing thingsNot at all07/30/2025 2:43 PM ESTChapman, Bethany, DEPARTMENT CLINICIAN Feeling down, depressed, or hopelessNot at all07/30/2025 2:43 PM Bethany Langford LPNPatient Health Questionnaire-2 Uxigh98009/30/2024 2:43 PM Bethany Langford LPN documented as [...] Plan of Treatment DateTypeDepartmentCare Team (Latest Contact Info)Nuviswyiuxu18/30/2025 1:20 PM ESTRoutine [facility] [address] [address] Bethany Simon, PA [address] [place], [facility]11 12/16/2025 3:00 PM EDTOffice Visit [facility] [address] [address] Caesar Broderick DO [address] [place], [place] [address] documented as of this encounter Visit Diagnoses Not on filedocumented in this encounter Care Teams Team MemberRelationshipSpecialtyStart DateEnd Date Judy Caal PCP - [facility]02/20/24documented as of this encounter
--- OUTSIDE RECORDS SUMMARY | 2025-08-09 10:20 | XMS_ITS | Encounter Summary ---
Author Organization [facility] Address [address] [place] [address] Care Team Providers Care Linen Room Custodian Name Role Phone Judy Caal Unavailable Unavailable Encounter Details DateTypeDepartmentCare Team (Latest Contact Info)Lbtsnlhtfim68/12/2025linisync Result Encounter [facility] External Department Unsolicited Caesar Broderick DO [address] [place] [address] Social History Tobacco UseTypesPacks/DayYears UsedDateSmoking Tobacco: NeverSmokeless Tobacco: NeverAlcohol UseStandard Drinks/WeekCommentsNever0 (1 standard drink = 0.6 oz pure alcohol)PHQ-2AnswerDate RecordedPatient Health Questionnaire-2 Score0 07/30/2025Estimated Date of EhbcvovnAcupioguQjh89/11/2026ased on last menstrual period of 12/26/2024Sex and Gender InformationValueDate RecordedSex Assigned at BirthNot on fileLegal IwyYoghvp89/06/2024 9:48 AM EDTGender Identity Not on fileSexual OrientationNot on fileTravel HistoryTravel StartTravel End Vrlkrcoqikvp96documented as of this encounter Plan of Treatment DateTypeDepartmentCare Team (Latest Contact Info)Yccbbgvdfyt40/30/2025 1:20 PM ESTRoutine [facility] [place] [facility] [address] [place] [address] Bethany Simon PA [address] [place] [address] 12/16/2025 3:00 PM EDTOffice Visit [facility] [place] [facility] [address] [place] [address] Caesar Broderick, DO [address] [place] [address] documented as of this encounter Procedures Procedure NamePriorityDate/TimeAssociated DiagnosisCommentsUS OB BPP W NON-ZKTFCN5608/02/2025 4:49 PM EST documented in this encounter Results * US OB BPP W NON-STRESS (08/02/2025 4:49 PM EST)Anatomical Region LateralityModalityOtherSpecimen (Source)Anatomical Location / Laterality Collection Method / VolumeCollection TimeReceived Time08/02/2025 4:49 PM EST Narrative 08/02/2025 4:52 PM EST [facility] ?[address] ? [place] [address] ? Ultrasound Report ? Signed ? Patient: ELLEN RAMIRES ?MR#: [id number] ?? : 1990 ?Acct:[id number] ?? Age/Sex: 35 / F ?ADM Date: 08/02/25 ?? Loc: US ? Attending Dr: Caesar Broderick D.O. ? Ordering Physician: Caesar Broderick D.O. ?? Date of Service: 08/02/25 ?? Procedure(s): US OB BPP w non-stress ?? Accession Number(s): [id number] ? cc: Caesar Broderick D.O.; Judy Yepez DRIVE SHAFT AND STEERING POST REPAIRER ? [facility] ? [address] ? [place] [address] ? Patient Name: ?? ELLENJULISSA RAMIRES ? MRN: [id number] ? date: 1990 ?Sex: F ?? Assigned Patient Location: US ?? Current Patient Location: ? Accession/Order Number: [id number] ?? Exam Date: 08/02/2025 ??10:15 ?Report Date: [...] M.D. ??08/02/2025 4:49 PM ? Dictation Location: [facility]-- ? Electronically authenticated by: [id number] ??Y ?? Date: 08/02/2025 ??16:49 ? Dictated By: ?Raffy Gibson M.D. ? Signed By: ?08/02/25 1652 ? DD/ 1649 ? TD/TT: ? Monitor Tech: Procedure Note Radiology, Radiologist, - 08/02/2025 [place] [address] Ultrasound Report Signed Patient: ELLEN RAMIRES JMR#: [id number] : 1990Acct:[id number] Age/Sex: 35 / FADM Date: 08/02/25 Loc: US Attending Dr: Caesar Broderick D.O. Ordering Physician: Caesar Broderick D.O. Date of Service: 08/02/25 Procedure(s): US OB BPP w non-stress Accession Number(s): [id number] cc: Caesar Broderick D.O.; Judy Yepez DRIVE SHAFT AND STEERING POST REPAIRER The [place] [address] Patient Name: ELLEN RAMIRES MRN: [id number] date: 1990 Sex: F Assigned Patient Location: Current Patient Location: Accession/Order Number: [id number] Exam Date: 08/02/2025 10:15 Report Date: 08/02/2025 [...] Gibson M.D. 08/02/2025 4:49 PM Dictation Location: [place] [address] Electronically authenticated by: [id number] Y Date: 6:49 Dictated By: Raffy Gibson M.D. Signed By:08/02/251651 DD/ 48 TD/TT: Monitor Tech: Authorizing ProviderResult TypeResult StatusCorey Davie DOCLINISYNC IMAGINGFinal Result documented in this encounter Visit Diagnoses Not on filedocumented in this encounter Care Teams Team MemberRelationshipSpecialtyStart DateEnd Date Judy Caal PCP - [facility]02/20/24documented as of this encounter
--- OUTSIDE RECORDS SUMMARY | 2025-08-09 10:20 | XMS_ITS | Encounter Summary ---
Author Organization [facility] Address [address] [place] [address] Care Team Providers Care Auto Body Worker Name Role Phone Judy Caal Unavailable Unavailable Encounter Details DateTypeDepartmentCare Team (Latest Contact Info)Gabovadolrt02/12/2025linisync Result Encounter [facility] External Department Unsolicited Israel Broderick DO [address] [facility] [place] [address] Social History Tobacco UseTypesPacks/DayYears UsedDateSmoking Tobacco: NeverSmokeless Tobacco: NeverAlcohol UseStandard Drinks/WeekCommentsNever0 (1 standard drink = 0.6 oz pure alcohol)PHQ-2AnswerDate RecordedPatient Health Questionnaire-2 Score0 07/30/2025Estimated Date of TyvygcueVyiwmdscDtl06/11/2026ased on last menstrual period of 12/26/2024Sex and Gender InformationValueDate RecordedSex Assigned at BirthNot on fileLegal KtkDglrev97/06/2024 9:48 AM EDTGender Identity Not on fileSexual OrientationNot on fileTravel HistoryTravel StartTravel End Bxqvzswhargr84documented as of this encounter Plan of Treatment DateTypeDepartmentCare Team (Latest Contact Info)Mbvuzqjsjwb77/30/2025 1:20 PM ESTRoutine [facility] [place] [facility] [address] [place] [address] Bethany Simon PA [address] [facility] [place] [address] 12/16/2025 3:00 PM EDTOffice Visit [facility] [facility] [address] [facility] [address] [facility] [place] [phone] Israel Broderick, DO [address] [facility] [place] [address] documented as of this encounter Procedures Procedure NamePriorityDate/TimeAssociated DiagnosisCommentsUS OB GROWTH 08/02/2025 4:46 PM EST documented in this encounter Results * US OB GROWTH (08/02/2025 4:46 PM EST)Anatomical RegionLateralityModalityOther Specimen (Source)Anatomical Location / LateralityCollection Method / Volume Collection TimeReceived Time08/02/2025 4:46 PM EST Narrative 08/02/2025 4:49 PM EST [facility] ?[address] ? [place] [address] ? Ultrasound Report ? Signed ? Patient: ELLEN RAMIRES ?MR#: [id number] ?? : 1990 ?Acct:[id number] ?? Age/Sex: 35 / F ?ADM Date: 08/02/25 ?? Loc: US ? Attending Dr: Israel Broderick D.O. ? Ordering Physician: Israel Broderick D.O. ?? Date of Service: 08/02/25 ?? Procedure(s): US OB growth ?? Accession Number(s): [id number] ? cc: Israel Broderick D.O.; Judy Yepez INSURANCE SERVICE REPRESENTATIVE ? [facility] ? [address] ? [place] [address] ? Patient Name: ?? ELLEN RAMIRES ? MRN: [id number] ? date: 1990 ?Sex: F ?? Assigned Patient Location: US ?? Current Patient Location: ? Accession/Order Number: [id number] ?? Exam Date: 08/02/2025 ??10:15 ?Report Date: [...] M.D. ??08/02/2025 4:46 PM ? Dictation Location: [place] [address] ? Electronically authenticated by: [id number] ??Y ?? Date: 08/02/2025 ??16:46 ? Dictated By: ?Raffy Gibson M.D. ? Signed By: ?08/02/25 1649 ? DD/ ? TD/TT: ? Securities Attorney: Procedure Note Radiology, Radiologist, MD - 08/02/2025 [place] [address] Ultrasound Report Signed Patient: ELLEN RAMIRES JMR#: [id number] : 1990Acct:[id number] Age/Sex: 35 / FADM Date: 08/02/25 Loc: US Attending Dr: Israel Broderick D.O. Ordering Physician: Israel Broderick D.O. Date of Service: 08/02/25 Procedure(s): US OB growth Accession Number(s): [id number] cc: Israel Broderick D.O.; Judy Yepez NP The [address] [address] Patient Name: ELLEN RAMIRES MRN: [id number] date: 1990 Sex: F Assigned Patient Location: Current Patient Location: Accession/Order Number: [id number] Exam Date: 08/02/2025 10:15 Report Date: 08/02/2025 [...] Gibson M.D. 08/02/2025 4:46 PM Dictation Location: [place] [address] Electronically authenticated by: [id number] Y Date: 6:46 Dictated By: Raffy Gibson M.D. Signed By:08/02/259 DD/ 45 TD/TT: Securities Attorney: Authorizing ProviderResult TypeResult StatusCorenitesh Broderick DOCLINISYNC IMAGINGFinal Result documented in this encounter Visit Diagnoses Not on filedocumented in this encounter Care Teams Team MemberRelationshipSpecialtyStart DateEnd Date Judy Caal PCP - [facility]02/20/24documented as of this encounter
--- OUTSIDE RECORDS SUMMARY | 2025-08-09 10:20 | XMS_ITS | Encounter Summary ---
Author Organization [facility] Address [address] [place] [place] [address] Care Team Providers Care Repairer Kiln Car Name Role Phone Judy Caal Unavailable Unavailable Encounter Details DateTypeDepartmentCare Team (Latest Contact Info)Frwmxbvjghz19/15/2025Travel Social History Tobacco UseTypesPacks/DayYears UsedDateSmoking Tobacco: NeverSmokeless Tobacco: NeverAlcohol UseStandard Drinks/WeekCommentsNever0 (1 standard drink = 0.6 oz pure alcohol)PHQ-2AnswerDate RecordedPatient Health Questionnaire-2 Score0 07/30/2025Estimated Date of QolrxyabMvjkflqiRkp22/11/2026ased on last menstrual period of 12/26/2024Sex and Gender InformationValueDate RecordedSex Assigned at BirthNot on fileLegal BzgPleaye96/06/2024 9:48 AM EDTGender Identity Not on fileSexual OrientationNot on fileTravel HistoryTravel StartTravel End Csjqarawegni45documented as of this encounter Plan of Treatment DateTypeDepartmentCare Team (Latest Contact Info)Nyhfhzqynyx17/30/2025 1:20 PM ESTRoutine [facility] [place] [facility] [address] [place] [address] Bethany Simon PA [address] [facility] [address] [place], [place] [address] 12/16/2025 3:00 PM EDTOffice Visit [facility] [place] [facility] [address] [place] [address] Caesar Broderick, DO [address] [place] [address] [place] [address] documented as of this encounter Visit Diagnoses Not on filedocumented in this encounter Care Teams Team MemberRelationshipSpecialtyStart DateEnd Date Judy Caal PCP - [facility]02/20/24documented as of this encounter
--- OUTSIDE RECORDS SUMMARY | 2025-08-09 10:20 | XMS_ITS | Encounter Summary ---
Author Organization [facility] Address [address] [place] [address] Care Team Providers Care Firearms Instructor Name Role Phone Judy Caal Unavailable Unavailable Encounter Details DateTypeDepartmentCare Team (Latest Contact Info)Ffcvbnssrkq52/16/2025amboo flowsheet [facility] [address] [place] [address] Caesar Broderick DO [address] [facility] [address] [place] [address] Social History Tobacco UseTypesPacks/DayYears UsedDateSmoking Tobacco: NeverSmokeless Tobacco: NeverAlcohol UseStandard Drinks/WeekCommentsNever0 (1 standard drink = 0.6 oz pure alcohol)PHQ-2AnswerDate RecordedPatient Health Questionnaire-2 Score0 07/30/2025Estimated Date of AikjgmhlXvwsbngnMwq86/11/2026ased on last menstrual period of 12/26/2024Sex and Gender InformationValueDate RecordedSex Assigned at BirthNot on fileLegal UhlIvocuv29/06/2024 9:48 AM EDTGender Identity Not on fileSexual OrientationNot on fileTravel HistoryTravel StartTravel End Gltlxziwkjxb44documented as of this encounter Plan of Treatment DateTypeDepartmentCare Team (Latest Contact Info)Coqqkbmfydp46/30/2025 1:20 PM ESTRoutine [facility] [address] [place] [address] Bethnay Simon PA [address] [facility] [place] [address] 12/16/2025 3:00 PM EDTOffice Visit [facility] [place] [facility] [address] [address] Caesar Broderick DO [address] [facility] [address] [place], [facility]11 documented as of this encounter Visit Diagnoses Not on filedocumented in this encounter Care Teams Team MemberRelationshipSpecialtyStart DateEnd Date Judy Caal PCP - [facility] Rosey [facility]02/20/24documented as of this encounter
--- OUTSIDE RECORDS SUMMARY | 2025-08-09 10:20 | XMS_ITS | Encounter Summary ---
Author Organization [facility] tem Address [id number] [address] [place] [address] Care Team Providers Care Metal Cnc Operator Name Role Phone Services, [facility] Primary Care Provider Encounter Details DateTypeDepartmentCare Team (Latest Contact Info)Wwcqzysjknl45/09/2025Telephone Maternal- Medicine at [facility] [address] [place] [phone] Antonina Mcdonough Social History Tobacco UseTypesPacks/DayYears UsedDateSmoking [...] to get more.Never True07/30/2025 Estimated Date of BqgilnwtBvsecwpaSrn99/11/2026ased on last menstrual period of 12/26/2024Sex and Gender InformationValueDate RecordedSex Assigned at BirthNot on fileLegal CjmSjyqgc37/04/2023 2:11 PM ESTGender IdentityNot on fileSexual OrientationNot on fileTravel HistoryTravel StartTravel EvuIxeirjdpbdkb60/25/2025 07/20/2025documented as of this encounter Plan of Treatment DateTypeDepartmentCare Team (Latest Contact Info)Kvygwlowzpi50/15/2026 2:00 PM ESTTelemedicine Maternal- Medicine at [facility] [address] [place] [address] Sheila Cruz MD [address] [facility] 1[address] [place] [address] documented as of this encounter Visit Diagnoses Not on filedocumented in this encounter Care Teams Team MemberRelationshipSpecialtyStart DateEnd Date Services, [facility] [address] [place], [place] PCP - GeneralFamily Medicine11/03/24documented as of this encounter
--- OUTSIDE RECORDS SUMMARY | 2025-08-09 10:21 | XMS_ITS | Clinical Summary ---
Author Organization [facility] Address [address] [place] [address] Phone Care Team Providers Care Master Electrician Name Role Phone June Trinidad LPN Unavailable Unavailable Allergies No known active allergies Medications MedicationSigDispense QuantityRefillsLast FilledStart DateEnd DateStatus metFORMIN (Glucophage) 500 mg tablet 1 tablet (500 mg).05/22/2024ctive Social History Tobacco UseTypesPacks/DayYears UsedDateSmoking Tobacco: NeverSmokeless Tobacco: Never Tobacco Cessation:Counseling Given: No Alcohol UseStandard Drinks/WeekCommentsNever0 (1 standard drink = 0.6 oz pure alcohol)PHQ-2AnswerDate RecordedPatient Health Questionnaire-2 Rplnm559 CommentsUnknownSex and Gender InformationValueDate RecordedSex Assigned at BirthNot on fileLegal MsdDgcwft62/06/2025 12:03 PM ESTGender IdentityNot on fileSexual OrientationNot on file Last Filed Vital Signs Vital SignReadingTime TakenCommentsBlood Splssxsu169/7805 10:52 AM EDT Dvcog611301/03/2025 10:52 AM LQQZrsswxykjmo70.6 ??C (97.8 ??F)01/03/2025 10:52 AM EDTRespiratory Rate--Oxygen Saturation--Inhaled Oxygen Concentration--Oyylcf313 kg (268 lb 9.6 oz)01/03/2025 10:52 AM LLUTjoipj421.7 cm (5' 8 )01/03/2025 10:52 AM EDTBody Mass Index40.845 10:52 AM EDT Plan of Treatment Health MaintenanceDue DateLast DoneCommentsHIV Ijvugfmxz1992Lipid Panel 1992MMR Vaccines (1 of 1 - Standard series)1993Hepatitis C Screening 2010Hepatitis B Vaccines (1 of 3 - 19+ 3-dose series)2011HPV/Cotest 2013DTaP/Tdap/Td Vaccines (1 - Tdap)2014HPV Vaccines (1 - 3-dose standard series)2019Influenza Vaccine (#1)2025OVID-19 Vaccine ( - season)2025early Adult Aejyzrqk61/22/910943/ervical Cancer Czcsbgymy73/21/2028Pap Smear12/10/033520/Zoster Vaccines (1 of 2) 2042HIB VaccinesAged OutNo [...] Ramires TypeRelation to PatientDate of BirthPhone Billing AddressPersonal/HcnvnxWrqh1990 [address] [address] [place] [address] * Guarantor: Antoinette Ramires TypeRelation to PatientDate of BirthPhone Billing AddressPersonal/XekoemAmbf1990 [address] [address] [place] [address] Care Teams Team MemberRelationshipSpecialtyStart DateEnd Date June Trinidad LPN Licensed Practical NurseReproductive Endocrinology and Infertility01/01/25
--- OUTSIDE RECORDS SUMMARY | 2025-08-09 10:21 | XMS_ITS | Clinical Summary ---
Author Organization [employer] [facility] tem Address [id number] [address] [place] [address] Care Team Providers Care Graduate Internship Name Role Phone Services, [facility] Primary Care Provider Allergies No [...] the morning.Active Active Problems ProblemNoted DateDiagnosed DateHeart vizjyrvwtfek75/23/2024Estimated Date of AlkomlhpZlilghkxHzs21/11/2026ased on last menstrual period of 12/26/2024 Encounters DateTypeDepartmentCare CnkrEnxvlvmhpmk04/09/2025 2:00 PM ESTOffice Visit Maternal- Medicine at [address] [address] Yordy Cruz MD Chronic hypertension affecting (Primary Dx); Anxiety disorder affecting , antepartum; Severe obesity due to excess calories affecting , antepartum (CMS-HCC); Acute palmoplantar pustular psoriasis; Depression affecting ; 30 weeks gestation of wulqldjur06/09/2025Telephone Maternal- Medicine at [address] [address] Antonina Mcdonough 07/28/20258544Xziazp87/28/2025 2:00 PM EDTTelemedicine Maternal- Medicine at [address] [phone] Yordy Cruz MD Chronic hypertension affecting (Primary Dx); 20 weeks gestation of ; Anxiety disorder affecting , antepartum; Acute palmoplantar pustular psoriasis; Severe obesity due to excess calories affecting , antepartum (CMS-HCC) 06/18/2025 7:48 AM EDT - 06/18/2025 11:59 PM EDTHospital Encounter [facility] [address] [place] [address] Acute palmoplantar pustular psoriasis; Chronic hypertension affecting ; Severe obesity due to excess calories affecting , antepartum (CMS-HCC); Hypertension affecting in second trimester Discharge Disposition: Home06/16/20254035Txkodf25/03/2025Orders Only Maternal- Medicine at [address] [address] Bethany Lundy LPN Acute palmoplantar pustular psoriasis; Chronic hypertension affecting ; Severe obesity due to excess calories affecting , antepartum (CMS-HCC); Hypertension affecting in second funziuazp84/03/2025Orders Only Maternal- Medicine at [facility] [address] [place] [address] Btehany Lundy LPN Acute palmoplantar pustular psoriasis (Primary Dx); Chronic hypertension affecting ; Severe obesity due to excess calories affecting , antepartum ([facility]CC); Hypertension affecting in second xklxmxegp71/26/2025 9:00 AM EDTOffice Visit Maternal- Medicine at [facility] [address] [place] [address] Clair Hare MD Hamilton, Ira, MD Chronic hypertension affecting (Primary Dx); Acute palmoplantar pustular psoriasis; Severe obesity due to excess calories affecting , antepartum ([facility]-HCC); 20 weeks gestation of qiyljllix16/26/2025 7:12 AM EDT - 05/17/2025 11:59 PM EDT Hospital Encounter [facility] - [facility] [address] [place] [address] Hypertension affecting in second trimester Discharge Disposition: Home05/17/2025Results Follow-Up Maternal- Medicine at [facility] [address] [place] [address] Yordy Cruz MD B-type natriuretic ulibnpk4905/17/2025Orders Only Maternal- Medicine at [facility] [address] [place] [address] Bethany Lundy LPN Acute palmoplantar pustular psoriasis (Primary Dx); Chronic hypertension affecting ; Severe obesity due to excess calories affecting , antepartum ([facility]-HCC); Hypertension affecting in second aquvfwwdw17/24/2025Travelfrom Last 3 Months Family History Medical HistoryRelationNameCommentsEpilepsyBrotherDiabetesFatherHypertension [...] to get more.Never True07/30/2025 Estimated Date of CvmurruwFnsvhhpoPmj48/11/2026ased on last menstrual period of 12/26/2024Sex and Gender InformationValueDate RecordedSex Assigned at BirthNot on fileLegal CmmQqswdo91/09/2023 2:11 PM ESTGender IdentityNot on fileSexual OrientationNot on fileTravel HistoryTravel StartTravel SvwYvgromyocuwt92/25/2025 07/20/2025 Last Filed Vital Signs Vital SignReadingTime TakenCommentsBlood Ayxyveuy621/8707/30/2025 1:48 PM EST Vxugf317307/30/2025 1:48 PM RCEPbxbrdsmvpn02.1 ??C (98.7 ??F)04/29/2025 6:26 PM EDTRespiratory Rmoz863304/29/2025 6:26 PM EDTOxygen Fzqwneswbr54%04/29/2025 6:26 PM EDTInhaled Oxygen Concentration--Mjplvp255.9 kg (290 lb 12.8 oz)07/30/2025 1:48 PM UKEAkiorv795.7 cm (5' 7.99 )05/17/2025 7:51 AM EDTBody Mass Index44.23 05/17/2025 7:51 AM EDT Plan of Treatment DateTypeDepartmentCare Team (Latest Contact Info)Fhbawbmamwq67/15/2026 2:00 PM ESTTelemedicine Maternal- Medicine at [facility] [address] [place] [phone] Yordy Cruz MD [address] [facility] [address] [place] [address] Health MaintenanceDue DateLast DoneCommentsDepression Huiabcbre97/29/2004Adult BMI Follow Up Plan2010DTaP,Tdap and Td Vaccines (1 - Tdap)2011 Influenza Zhqfkdt5904/22/2025RSV ( or age 60+ yrs) (1 - Risk 1- dose series)08/07/2025dult BMI Zsdnmulwo13Tobacco Screening /04/2025Pap Smear/, 11/23/2022, 11/23/2022, Additional history exists Medical Devices Not on file Procedures Procedure NamePriorityDate/TimeAssociated DiagnosisCommentsUS [facility] OB FOLLOW-UP, 1 POGJJFgfusjx54/28/2025 9:09 AM EDT 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 Severe obesity due to excess calories affecting , antepartum ([facility]-HCC) Hypertension affecting in second trimester B-TYPE NATRIURETIC OMEDDIVLggryhv42/26/2025 9:54 AM EDT Chronic hypertension affecting 20 weeks gestation of [facility] COMPREHENSIVE ANATOMIC OLBEYCHtijkgv97/26/2025 9:10 AM EDT Hypertension affecting in second trimester UNLISTED LAB MBSNKmrhmjk84/ 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 Severe obesity due to excess calories affecting , antepartum ([facility]CC) Hypertension affecting in second trimester PAP XXAZMSqnleyc11/04/2023 5:20 AM EDT Encounter for screening for malignant neoplasm of cervix Encounter for screening for human papillomavirus (HPV) from Last 3 Months or Most Recently Relevant to Health Maintenance Results * [facility] OB FOLLOW-UP, 1 FETUS (06/18/2025 9:09 AM EDT) Only the most recent of2 resultswithin the time period is included. Anatomical RegionLateralityModalityOB-GYNUltrasoundSpecimen (Source)Anatomical Location / LateralityCollection Method / VolumeCollection TimeReceived Time 06/18/2025 8:05 AM EDT Narrative 06/18/2025 9:41 AM EDT NAME: ??PAULA HUGHES : 1990 SEX: F Accession Number: [id number] ORDERING PHYSICIAN: YORDY CRUZ REFERRING PHYSICIAN: ISRAEL LUNA Coding Procedures ? 49817: Ultrasound, uterus, real time with image documentation, follow up,transabdominal ? approach per fetus Indication Screening for follow-up survey, Anxiety , Depression, Obesity in , History of gestationalhypertension, Obesity in , Chronic hypertension affecting . History OB History ? 2. Para 1 ? [id number] Maternal Assessment Physical Exam ??Height 173 cm, [...] (oz) ? 15 oz EFW by: ?Hadlock (AAB-LJ-QC-FL) Extended Tibia ??37.8 mm 24w 2d 27% [employer] Manager ? 4.7 mm CM ? 4.4 mm [...] Thorax RVOT view. LVOT view. 3-vessel view. 0-acgjnb-zgrhxur view. ? Right lung. Left lung. Abdomen [...] HUGHES : 1990 SEX: F Accession Number: [id number] ORDERING PHYSICIAN: YORDY CRUZ REFERRING PHYSICIAN: ISRAEL LUNA Coding Procedures [id number]: Ultrasound, uterus, real time with image documentation, follow up, transabdominal approach per fetus Indication Screening for follow-up survey, Anxiety , Depression, Obesity in , History of gestational hypertension, Obesity in , Chronic hypertension affecting . History OB History 2. Para 1 [id number] Maternal Assessment Physical Exam Height 173 cm, [...] EFW (oz) 15 oz EFW by: Hadlock (WOX-AF-DZ-FL) Extended Tibia 37.8 mm 24w 2d 27% [employer] Manager 4.7 mm CM 4.4 mm 8% Nicolaides [...] Thorax RVOT view. LVOT view. 3-vessel view. 2-tpbast-wasebnuivto. Right lung. Left lung. Abdomen Abdom. wall. [...] as necessary. Authorizing ProviderResult TypeResult Araceli Cruz MDJIM TAL[facility] US ORDERABLES Final Result * B-type natriuretic peptide (05/17/2025 9:54 AM EDT)ComponentValueRef RangeTest MethodAnalysis TimePerformed AtPathologist MfgnaypviTHB57<=100 pg/mL05/17/2025 11:13 AM [facility] LABORATORYSpecimen (Source)Anatomical Location / LateralityCollection Method / VolumeCollection TimeReceived Time BloodVenous blood / UnknownVenipuncture / Ymjanai5505/17/2025 9:54 AM EDT 05/17/2025 9:54 AM EDT Narrative Authorizing ProviderResult TypeResult Araceli Cruz [facility] BLOOD ORDERABLES Final ResultPerforming OrganizationAddressCity/State/ZIP CodePhone Number [facility] [address] [place] [address], [place] [phone] * Unlisted Lab Test (05/17/2025)ComponentValueRef RangeTest MethodAnalysis Time Performed AtPathologist SignatureFetal Free Cell Dnalow riskMANUALLY TRANSCRIBED RESULTSSpecimen (Source)Anatomical Location / LateralityCollection Method / VolumeCollection TimeReceived TimeBlood (Arm)05/17/2025 Narrative Authorizing ProviderResult TypeResult BannerYordy [facility] BLOOD ORDERABLES Final ResultPerforming OrganizationAddressCity/State/ZIP CodePhone Number MANUALLY TRANSCRIBED RESULTS * Pap Smear (11/23/2022 5:20 AM EDT)Specimen (Source)Anatomical Location / LateralityCollection Method / VolumeCollection TimeReceived Time11/23/2022 5:20 AM EDT11/23/2022 5:29 AM EDT Narrative COPATH - 11/24/2022 1:05 PM EDT [facility] ? [address] ? [place] [address] ? Gynecologic Cytology Consultation ? Patient Name:SANTHOSH RAMIRESJULISSA LockwoodMeghan:1990 (Age: 32)Gender:FTaken:11/23/2022Reported:11/24/2022hysician(s):Bethany Raymundo CNP ([phone])Copy To: Rec. #:[id number]: #[id number] Final Cytologic Interpretation ThinPrep Pap Test (Cervical): Satisfactory for evaluation. A transformation zone component is present. NEGATIVE FOR INTRAEPITHELIAL LESION OR MALIGNANCY. ?? jja/11/24/2022 Interpretation performed at [facility], [address] [place] [address], License number: [id number]. Electronically Signed Out By ?ZORA Walter(ASCP) Date of Last Menstrual Period: ? (None Given) Other Clinical Conditions: Z12.4 Screening for malignant neoplasm of cervix Z11.51 Screening for HPV Source of Specimen ??ThinPrep Pap Test (Cervical) ? Thin Prep Pap (QUALITY WORKER) Fee Code(s): ?? G0145 Authorizing ProviderResult TypeResult StatusBethany Raymundo CASINO ASSISTANT MANAGER-SPRING MAKER PATHOLOGY/CYTOLOGY ORDERABLESFinal ResultPerforming OrganizationAddress City/State/ZIP CodePhone Number COPATH from Last 3 Months or Most Recently Relevant to Health Maintenance Insurance * Guarantor: Ellen Ramires TypeRelation to PatientDate of BirthPhone Billing AddressPersonal/IpcykiUeyg1990 [address] [address] Care Teams Team MemberRelationshipSpecialtyStart DateEnd Date Services, [facility] [address] [place], [place] PCP - GeneralFajosiah [facility] Medicine11/03/24
--- OUTSIDE RECORDS SUMMARY | 2025-08-09 10:21 | XMS_ITS | Patient Health Record ---
Author Organization [facility] vices Address [address] [place], [place] [id number] Care Team Providers Care Child Abuse Worker Name Role Phone Sabiha Aviles Primary Care Provider [phone] Merary Espino Unavailable [phone] Noelle Chris Unavailable Judy Yepez Unavailable [phone] Allergies No Known Allergies Results Component Value Reference Range Flag Notes US OB growth Reviewed date:08/05/2025 07:01:01 AM Interpretation: Performing Lab: Notes/Report: Source Facility: [place] [address] Ultrasound Report Signed Patient: ELLEN RAMIRES MR#: [id number] : 1990 Acct:[id number] Age/Sex: 35 / F ADM Date: 08/02/25 Loc: US Attending Dr: Israel Broderick D.O. Ordering Physician: Israel Broderick D.O. Date of Service: 08/02/25 Procedure(s): US OB growth Accession Number(s): [id number] cc: Israel Broderick D.O.; Judy Yepez NP [facility] [place] [address] Patient Name: ELLEN RAMIRES MRN: [facility]:[id number] date: 1990 Sex: F Assigned Patient Location: US Current Patient Location: Accession/Order Number: [id number] Exam Date: 08/02/2025 10:15 Report Date: 08/02/2025 [...] Gibson M.D. 08/02/2025 4:46 PM Dictation Location: [place] [address] Electronically authenticated by: [id number] Y Date: 08/02/2025 16:46 Dictated By: Raffy Gibson M.D. Signed By: 08/02/251648 DD/ 45 TD/TT: Propellant Assembler: US OB BPP w non-stress Reviewed date:08/05/2025 07:01:01 AM Interpretation: Performing Lab: Notes/Report: Source Facility: [place] [address] Ultrasound Report Signed Patient: ELLEN RAMIRES MR#: [id number] : 1990 Acct:[id number] Age/Sex: 35 / F ADM Date: 08/02/25 Loc: US Attending Dr: Israel Broderick D.O. Ordering Physician: Israel Broderick D.O. Date of Service: 08/02/25 Procedure(s): US OB BPP w non-stress Accession Number(s): [id number] cc: Israel Broderick D.O.; Judy Yepez NP [facility] [place] [address] Patient Name: ELLEN RAMIRES MRN: [facility]:[id number] date: 1990 Sex: F Assigned Patient Location: Current Patient Location: Accession/Order Number: [id number] Exam Date: 08/02/2025 10:15 Report Date: 08/02/2025 [...] Gibson M.D. 08/02/2025 4:49 PM Dictation Location: [place] [address] Electronically authenticated by: [id number] Y Date: 08/02/2025 16:49 Dictated By: Raffy Gibson M.D. Signed By: 08/02/251651 DD/ 48 TD/TT: Propellant Assembler: Urine Dip Reviewed date:11/12/2024 05:53:24 PM Interpretation: Performing Lab: Notes/Report: Bilirubin - Occult Lgnqz-Ljfxhyn-Kmlhghn-TGQ-Tvticlm-Dc5.0Protein-Specific Gravity1.010Color yellowAppearanceclearURINALYSIS - REFLEX CULTURE/SENS Reviewed date:11/13/2024 11:59:49 AM Interpretation: Performing Lab: Notes/Report:PH6.55.0-8.0SP GRAVITY1.0061.005-1.030APPEARANCECLEARCLEARCOLOR YELLOWYELLOWPROTEINNEGATIVENEGATIVEGLUCOSENEGATIVENEGATIVEKETONESNEGATIVE NEGATIVEBILIRUBINNEGATIVENEGATIVEOCCULT BLOODNEGATIVENEGATIVELEUKO ESTERNEGATIVE NEGATIVENITRITENEGATIVENEGATIVEUROBILINOGEN0.2<2 mg/dL UNLESS OTHERWISE INDICATED, ALL TESTING PERFORMED AT: [employer] [place]. [address] [place] [address] COUNTY RECORDS MANAGEMENT OFFICER: BARBARA DASH M.D. CLIA NUMBER [id number] CAP ACCREDITATION AUID [id number] UA Culture/Micro if Indicated Reviewed date:06/23/2025 10:27:19 PM Interpretation: Performing Lab: Notes/Report: , [facility] UrineLT. YELLOWYELLOWClarity UrineCLEARCLEARSpecific [place] Urine<=1.0051.005-1.025ApH Urine6.05.0-9.0Protein UrineNEGATIVENEG/TRACE mg/dLGlucose Urine QH180ORDKENYZ mg/dLABilirubin UrineNEGATIVENEGATIVEKetones UrineNEGATIVENEGATIVE mg/dLBlood UrineNEGATIVENEGATIVENitrite UrineNEGATIVE NEGATIVEUrobilinogen Urine0.20.2-1.0 EU/dLLeukocyte Esterase UrineNEGATIVE NEGATIVEUrine Microscopic IndicatedNOPerforming Lab:see noteML - [facility] LBComplete Blood Count Auto Diff Reviewed date:06/23/2025 10:27:19 PM Interpretation: Performing Lab: Notes/Report: , [facility] Blood Count14.64.0-11.0 10 3/uLHRed Blood Count3.69 4.20-5.40 10 6/aZTQeagdlywwx63.512.0-16.0 g/bPQZpvtrkzegj91.236.0-48.0 %LMean Corpuscular Wuqggu21.781.0-99.0 fLNMean Corpuscular Pquemydqvj46.226.7-34.0 pgN Mean Corpuscular HGB Conc33.629.9-35.2 g/dLNRed Cell Distribution Width12.911.0- 15.0 %NPlatelet Axpow887230-969 10 3/uLNMean Platelet Uzatry32.49.5-13.5 fLN Neutrophils Percent Auto74.543.0-75.0 %NLymphocytes Percent Auto15.420.5-60.0 %L Monocytes Percent Auto6.71.7-12.0 %NEosinophils Percent Auto1.90.9-7.0 %N Basophils Percent Auto0.30.2-2.0 %NImmature Granulocytes Pct Auto1.20.0-0.5 %H Neutrophils Absolute Auto10.91.4-6.5 10 3/uLHLymphocytes Absolute Auto2.21.2-3.8 10 3/uLNMonocytes Absolute Auto1.00.3-0.8 10 3/uLHEosinophils Absolute Auto0.3 0.0-0.7 10 3/uLNBasophils Absolute Auto0.00.0-0.1 10 3/uLNImmature Granulocytes Abs Auto0.180.00-0.03 10 3/uLHPerforming Lab:see noteML - [facility] LBBasic Metabolic Panel Reviewed date:06/23/2025 10:27:19 PM Interpretation: Performing Lab: Notes/Report: [facility] ,Iszpwn724291-846 mmol/LNPotassium3.33.5-5.1 mmol/ZPHhebdejl87777-373 mmol/LN Carbon Pjqngxy03.321.0-32.0 mmol/LNAnion Gap15.1Jxfrqex77692-148 mg/dLHBlood Urea Nitrogen5.07.0-18.0 mg/dLLCreatinine0.570.55-1.02 mg/dLNEstimated GFR ( Claritza>60>=60 mL/min/1.73m 2Estimated GFR (Non- Meghana>60>=60 mL/min/1.73m 2BUN Creatinine Ratio8.9Enrahkz2.78.5-10.1 mg/dLNPerforming Lab:see noteML - [facility] LBUA Micro, reflex to culture Reviewed date:06/23/2025 10:27:35 PM Interpretation: Performing Lab: Notes/Report: , [facility] CenterColor UrineLT. YELLOWYELLOWClarity UrineCLEARCLEARSpecific [place] Urine1.0101.005-1.025pH Urine7.05.0-9.0Protein UrineNEGATIVENEG/TRACE mg/dLGlucose Urine UANEGATIVENEGATIVE mg/dLBilirubin UrineNEGATIVENEGATIVE Ketones UrineNEGATIVENEGATIVE mg/dLBlood UrineNEGATIVENEGATIVENitrite Urine NEGATIVENEGATIVEUrobilinogen Urine0.20.2-1.0 EU/dLLeukocyte Esterase Urine NEGATIVENEGATIVEWBC Urine0-2NONE SEEN #/HPFARBC Urine0-20-2 #/HPFBacteria Urine TRACENONE SEEN #/HPFAMucus UrineNONE SEENNONE SEENSquamous Epithelial Cell Urine FEWNONE/RARE #/LPFACrystals Seen?None SeenNone Seen #/HPFCast Seen?NONE SEENNONE SEEN #/LPFUrine Culture IndicatedNOPerforming Lab:see noteML - [facility] LBECG 12 lead Reviewed date:06/23/2025 10:27:35 PM Interpretation: Performing Lab: Notes/Report: Source Facility: [place] [address] Electrocardiograph Report Signed Patient: ELLEN RAMIRES MR#: [id number] : 1990 Acct:[id number] Age/Sex: 35 / F ADM Date: 06/20/25 Loc: ER Attending Dr: Ordering Physician: Vince Chadwick Date of Service: 06/20/25 Procedure(s): ECG 12 lead Accession Number(s): [id number] cc: [facility] Test Date: 2025-06-20 Pat Name: ELLEN RAMIRES Department: Room: - Gender: Female Lead Ramp Service Man: : 1990 Requested By: 1031 Order Number: [id number] Reading MD: RANDOLPH MIXON M.D. Measurements Intervals [place] Rate: 79 P: 43 NM: 130 QRS: 39 QRSD: 90 T: 8 QT: 398 QTc: 432 Interpretive Statements 1100 Sinus rhythm 4068 Nonspecific Twave abnormality 9130 borderline ECG No previous ECG available for comparison Electronically Signed On 06-21-2025 6:28:32 EDT by RANDOLPH MIXON M.D. Dictated By: RANDOLPH MIXON Signed By: 06/21/2529 DD/ 14 TD/TT: Propellant Assembler:TSH + FREE T4 PROFILE Reviewed date:02/08/2025 08:56:14 AM Interpretation: Performing Lab: Notes/Report:TSH1.690.270-4.200 uIU/mL The [employer] (HUGO) recommends the following reference ranges for TSH levels during : First trimester: 0.1 to 2.5 mIU/L Second trimester: 0.2 to 3.0 mIU/L Third trimester: 0.3 to 3.0 mIU/L FREE T41.120.80-1.90 ng/dLCBC NO DIFF Reviewed date:02/08/2025 11:13:49 AM Interpretation: Performing Lab: Notes/Report:WBC13.83.6-11.0 THDS/CMMHRBC4.253.80-5.20 MILL/SRGMOK23.311.9-16.0 G/DLHCT40.035-47 %RFV1673-439 fLMCH31.326.0-33.0 utYZXT07.332.0-35.0 g/dlRDW12.8 11.2-14.8 %EHOTBNMM843711-805 THOUS/CMMCOMPREHENSIVE METABOLIC PANEL WITH GFR Reviewed date:02/08/2025 08:56:14 AM Interpretation: Performing Lab: Notes/Report:MHCVZWJ7706-269 mg/wMHOU59-32 mg/dLCALCIUM9.48.6-10.5 mg/dL CREATININE, BLOOD0.710.51-1.15 mg/dLeGFR (2020 CKD-EPI)116>59 mL/min/1.73m2 XFLWRK979603-253 mmol/LPOTASSIUM4.43.5-5.4 mmol/DDFNAJHPY24567-148 mmol/GZT474 18-32 mmol/LANION ZRC546-97 mmol/LT. BILIRUBIN0.2<1.3 mg/dLALK OCVN5600-549 U/L WLY-GFNX200-76 U/SHBN-TQJB143-17 U/LT. PROTEIN6.56.0-8.3 g/dLALBUMIN4.23.5-5.2 g/dLLIPID PANEL WITH REFLEX TO DIRECT LDL Reviewed date:02/08/2025 11:13:42 AM Interpretation: Performing Lab: Notes/Report:VDOVOFRUYNZ448011-672 mg/vQADKRZCMYCVVZS02939-445 mg/dLHVLDL-CHOL, ZLXFESAVWA28<30 mg/dLHHDL-CHOL45>=50 mg/dLLLDL-CHOL, RTFJBPAISD75<130 mg/dL ADULT LDL CHOLESTEROL CLASSIFICATION <100mg/dL Optimal [...] risk <7.1 <5.6 high risk >7.1 >5.6 CHOL/HDL3.82.0-4.5VITAMIN D 25 HYDROXY Reviewed date:02/08/2025 09:10:44 AM Interpretation: Performing Lab: Notes/Report:VITAMIN D, 25 HGLRUHF52.630.0-100.0 ng/mLL 25-OH VITAMIN D INTERPRETATION Deficiency.... <20.0 ng/ml Insufficiency..20.0-29.0 ng/ml Sufficiency....30.0-100.0 ng/ml Possible Toxicity...>150 ng/ml UNLESS OTHERWISE INDICATED, ALL TESTING PERFORMED AT: [employer] [employer] [address] [place] [address] COUNTY RECORDS MANAGEMENT OFFICER: BARBARA DASH M.D. CLIA NUMBER [id number] [facility] ACCREDITATION AUID [id number] AFP, Serum, Open Spina Bifida Reviewed date:05/26/2025 02:17:58 PM Interpretation: Performing Lab: Notes/Report: , [facility]/ N N N N N 282 1 N 9 2 [id number] LMP N NResultsReport.Test Results:*Screen Negative*.Gest. Age on Collection Date21.1. weeksGestat. Age Based OnLMP. Recalculations are not recommended when gestational dating by LMP and ultrasound are within 10 days. Maternal Age At EDD33.5. yrRaceCaucasian.Xvwgfr893. lbsInsulin Dep DiabetesNo. Multiple GestationNo.AFP Value38.2. ng/mLAFP MoM0.85.OSBR Risk 1 ZJ24824. InterpretationComment. Interpretation: Screen Negative This result is [...] Customer Services to discuss available options. The [employer] recommends amniocentesis be offered to women age 35 and older. Comment:Comment. Gema Ortez, Ph.D., [facility] Director References: Available Upon Request. Multiples Of Median Cutoffs For AFP Elevations Kumar 2.5 Black 2.8 IDD 2.0 Twins 4.5 Abbreviation Definitions IDD - Insulin Dep Diabetes OSBR - Open Spina Bifida Risk For further inquiries contact [employer] [employer] [facility] at [phone]. This test was developed and its performance characteristics determined by [employer]. It has not been cleared or approved by the Food and Drug Administration. Performed at: [facility] [place], [place] [id number] Transcribing Operators Supervisor: Jesus Saleh [facility], Phone: [phone] Performing Lab:see note - [facility] LBCreatinine 24 Hour Urine Reviewed date:05/26/2025 02:26:35 PM Interpretation: Performing Lab: Notes/Report: , [facility] HospitalCreatinine Urine Pgbhnm91.4120.00-300.00 mg/dLNTotal Volume 24 Hour Xdtxs3226Ajmbyqyjlv 24 Hour Auffx3729.77153.00-1800.00 mg/24 hrH Performing Lab:see noteML - [facility] LBTotal Protein 24 Hour Urine Reviewed date:05/26/2025 02:26:35 PM Interpretation: Performing Lab: Notes/Report: [facility] ,Total Protein Urine Random<6.0<=11.9 mg/dLPerforming Lab:see noteML - [facility] LBUA Culture/Micro if Indicated Reviewed date:05/30/2025 09:54:53 AM Interpretation: Performing Lab: Notes/Report: , [facility] CenterColor UrineLT YELLOWYELLOWClarity UrineCLEARCLEARSpecific [place] Urine<=1.0051.005-1.025ApH Urine7.05.0-9.0Protein UrineNEGATIVENEG/TRACE mg/dLGlucose Urine UANEGATIVENEGATIVE mg/dLBilirubin UrineNEGATIVENEGATIVE Ketones UrineNEGATIVENEGATIVE mg/dLBlood UrineNEGATIVENEGATIVENitrite Urine NEGATIVENEGATIVEUrobilinogen Urine0.20.2-1.0 EU/dLLeukocyte Esterase UrineTRACE NEGATIVEAUrine Microscopic IndicatedYESPerforming Lab:see noteML - [facility] LBUrine Microscopic Reviewed date:05/30/2025 09:54:53 AM Interpretation: Performing Lab: Notes/Report: [facility] ,WBC Urine0-2NONE SEEN #/HPFARBC Urine0-20-2 #/HPFBacteria UrineTRACENONE SEEN #/HPFAMucus UrineNONE SEENNONE SEENSquamous Epithelial Cell UrineFEWNONE/RARE #/LPFACrystals Seen?None SeenNone Seen #/HPFCast Seen?NONE SEENNONE SEEN #/LPF Performing Lab:see noteML - [facility] LBComplete Blood Count Auto Diff Reviewed date:07/04/2025 12:45:54 PM Interpretation: Performing Lab: Notes/Report: , [facility] CenterWhite Blood Count17.34.0-11.0 10 3/uLHRed Blood Count3.74 4.20-5.40 10 6/kFSCtzlzouqjs91.812.0-16.0 g/bDUJlcgcesolx78.036.0-48.0 %LMean Corpuscular Uazhpc27.681.0-99.0 fLNMean Corpuscular Sqwhgxozyy13.626.7-34.0 pgN Mean Corpuscular HGB Conc33.729.9-35.2 g/dLNRed Cell Distribution Width13.111.0- 15.0 %NPlatelet Jtptl721395-039 10 3/uLNMean Platelet Dyxkqn30.49.5-13.5 fLN Neutrophils Percent Auto84.243.0-75.0 %HLymphocytes Percent Auto10.020.5-60.0 %L Monocytes Percent Auto3.01.7-12.0 %NEosinophils Percent Auto1.60.9-7.0 %N Basophils Percent Auto0.20.2-2.0 %NImmature Granulocytes Pct Auto1.00.0-0.5 %H Neutrophils Absolute Auto14.61.4-6.5 10 3/uLHLymphocytes Absolute Auto1.71.2-3.8 10 3/uLNMonocytes Absolute Auto0.50.3-0.8 10 3/uLNEosinophils Absolute Auto0.3 0.0-0.7 10 3/uLNBasophils Absolute Auto0.00.0-0.1 10 3/uLNImmature Granulocytes Abs Auto0.180.00-0.03 10 3/uLHPerforming Lab:see noteML - [facility] LBGlucose 1 Hour Reviewed date:07/04/2025 12:45:54 PM Interpretation: Performing Lab: Notes/Report: [facility] ,Glucose 1 Wstt776<130 mg/dLHPerforming Lab:see noteML - [facility] LBComplete Blood Count Auto Diff Reviewed date:07/07/2025 10:36:45 PM Interpretation: Performing Lab: Notes/Report: , [facility] HospitalWhite Blood Count15.34.0-11.0 10 3/uLHRed Blood Count3.77 4.20-5.40 10 6/jXZEcfsrosegw22.712.0-16.0 g/wFAMnslwjmkyk39.136.0-48.0 %LMean Corpuscular Zdxnsd42.181.0-99.0 fLNMean Corpuscular Bdbmkutgqa99.026.7-34.0 pgN Mean Corpuscular HGB Conc33.329.9-35.2 g/dLNRed Cell Distribution Width13.011.0- 15.0 %NPlatelet Stogz027747-609 10 3/uLNMean Platelet Tlttes40.59.5-13.5 fLN Neutrophils Percent Auto78.143.0-75.0 %HLymphocytes Percent Auto12.920.5-60.0 %L Monocytes Percent Auto4.61.7-12.0 %NEosinophils Percent Auto2.90.9-7.0 %N Basophils Percent Auto0.30.2-2.0 %NImmature Granulocytes Pct Auto1.20.0-0.5 %H Neutrophils Absolute Auto12.01.4-6.5 10 3/uLHLymphocytes Absolute Auto2.01.2-3.8 10 3/uLNMonocytes Absolute Auto0.70.3-0.8 10 3/uLNEosinophils Absolute Auto0.4 0.0-0.7 10 3/uLNBasophils Absolute Auto0.00.0-0.1 10 3/uLNImmature Granulocytes Abs Auto0.180.00-0.03 10 3/uLHPerforming Lab:see noteML - [facility] LBGlucose Tolerance 3 Hour Reviewed date:07/07/2025 10:36:45 PM Interpretation: Performing Lab: Notes/Report: , [facility] HospitalGlucose Tolerance 3 Hour GLU FAST 94 (<95) Col: 07/06/25 0809 GLU 1HR 157 (<180) Col: 07/06/25 0917 GLU 2HR 107 (<155) Col: 07/06/25 1012 GLU 3HR 67 (<140) Col: 07/06/25 1120 Performing Lab:see noteML - [facility] LBUS OB BPP w non-stress Reviewed date:07/24/2025 09:24:52 AM Interpretation: Performing Lab: Notes/Report: Source Facility: [place] [address] [place] [address] Ultrasound Report Signed Patient: ELLEN RAMIRES MR#: [id number] : 1990 Acct:[id number] Age/Sex: 35 / F ADM Date: 07/23/25 Loc: [facility] 250-[address]: Israel Broderick D.O. Ordering Physician: Israel Broderick D.O. Date of Service: 07/23/25 Procedure(s): OB BPP w non-stress Accession Number(s): [id number] cc: Israel Broderick D.O.; Judy Yepez NP [facility] [place] [address] Patient Name: ELLEN RAMIRES MRN: [id number] date: 1990 Sex: F Assigned Patient Location: [facility] Current Patient Location: Accession/Order Number: [id number] Exam Date: 07/23/2025 10:04 Report Date: 07/23/2025 [...] Florentino M.D. 07/23/2025 10:49 AM Dictation Location: [place] [address] Electronically authenticated by: [id number] Y Date: 07/23/2025 10:49 Dictated By: Kita Florentino M.D. Signed By: 07/23/25 1051 DD/ 1049 TD/TT: Propellant Assembler: OB growth Reviewed date:07/19/2025 09:17:12 PM Interpretation: Performing Lab: Notes/Report: Source Facility: [place] [address] [place] [address] Ultrasound Report Signed with Jolanta Patient: ELLEN RAMIRES MR#: [id number] : 1990 Acct:[id number] Age/Sex: 35 / F ADM Date: 07/12/25 Loc: US Attending Dr: Israel Broderick D.O. Ordering Physician: Israel Broderick D.O. Date of Service: 07/12/25 Procedure(s): US OB growth Accession Number(s): [id number] cc: Israel Broderick D.O.; Judy Yepez REGISTERED VETERINARY TECHNICIAN ADDENDUM The [address] [address] This is an addendum 57th percentile for estimated weight. Impression dictated by: Mariusz Malloy Jr., D.O. 07/17/2025 8:54 AM Dictation Location: [place] [address] Electronically authenticated by: [id number] Y Date: 07/17/2025 08:54 Patient Name: ELLEN RAMIRES MRN: [facility]:[id number] date: 1990 Sex: F Assigned Patient Location: Current Patient Location: Accession/Order Number: [id number] Exam Date: 07/12/2025 09:56 Report Date: 07/17/2025 08:54 At the request of: ISRAEL BRODERICK DO Procedure: US OB growth The [address] [address] Patient Name: ELLEN RAMIRES MRN: [id number] date: 1990 Sex: F Assigned Patient Location: [place] Current [place] [facility] Accession/Order Number: [id number] Exam Date: 07/12/2025 09:56 Report Date: 07/12/2025 [...] Jr., D.O. 07/12/2025 2:57 PM Dictation Location: [facility] Electronically authenticated by: [id number] Y Date: 07/12/2025 14:57 Addendum Dictated By: Mariusz Malloy M.D. Addendum Signed By: 07/17/25 0 857 Addendum Cosigned By: DD/ TD/TT: / [place] [id number] Patient Name: ELLEN RAMIRES MRN: [id number] date: 1990 Sex: F Assigned Patient Location: Current Patient Location: [facility] Accession/Order Number: [id number] Exam Date: 07/12/2025 09:56 Report Date: 07/12/2025 [...] Jr., D.O. 07/12/2025 2:57 PM Dictation Location: [facility] Electronically authenticated by: [id number] Y Date: 07/12/2025 14:57 Dictated By: Mariusz Malloy M.D. Signed By: 07/12/25 1500 DD/ 1457 TD/TT: Propellant Assembler:US OB BPP w non-stress Reviewed date:07/14/2025 11:11:37 PM Interpretation: Performing Lab: Notes/Report: Source Facility: [place] [address] [place] [address] Ultrasound Report Signed Patient: ELLEN RAMIRES MR#: [id number] : 1990 Acct:[id number] Age/Sex: 35 / F ADM Date: 07/12/25 Loc: US Attending Dr: Israel Broderick D.O. Ordering Physician: Israel Broderick D.O. Date of Service: 07/12/25 Procedure(s): US OB BPP w non-stress Accession Number(s): [id number] cc: Israel Broderick D.O.; Judy Yepez [facility] [place] [address] Patient Name: ELLEN RAMIRES MRN: [id number] date: 1990 Sex: F Assigned Patient Location: Current Patient Location: [facility] Accession/Order Number: [id number] Exam Date: 07/12/2025 09:56 Report Date: 07/12/2025 14:56 At the request of: ISRAEL BRODERICK DO Procedure: US OB BPP w non-stress Biophysical profile. Reason for exam: History of preeclampsia COMPARISON: None TECHNIQUE: Transabdominal imaging of the gravid uterus was obtained. FINDINGS: The supervisor multifocal lens reports a BPP of 8 out of 8. CHETAN is normal at 12.8 cm. heart rate 159 bpm. US/US OB BPP w non-stress IMPRESSION: BPP 8 out of 8. Impression dictated by: Mariusz Malloy Jr., D.O. 07/12/2025 2:56 PM Dictation Location: [place] [address] Electronically authenticated by: [id number] Y Date: 07/12/2025 14:56 Dictated By: Mariusz Malloy M.D. 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 Stress is when someone feels tense, nervous, anxious, or can't sleep at nightbecause their mind is troubledQuite a bitpatient entered dataIn the past year have you spent more than 2 nights in a row in a custodial, intermediate, fdc center, orjuvenile correctional facility?Nopatient entered dataAre you [...] not already ?YesPCMH and UDS Demographics Social InfoQuestionAnswerNotesPriParkland Health Center Medical Home QuestionsDo you have any barriers [...] rid of a hangover?Nopatient entered dataCAGE- AID Qpfzh9BghueuqgkfplqeJhbhbbyeBfzhhvufHitqqh:1-2 cups per daypopTobacco Use: Social InfoQuestionAnswerNotesTobacco Use/SmokingTobacco use:nonsmokerpatient entered dataAdditional DetailsCategorySocial InfoOptionsDetailsMiscellaneous: Occupation:works full-timeCulture/Language BarrierNoEducation LevelGrade 7-12 Barriers to LearningNoneLearning PreferenceDoing or practicingHow often do you need to have someone help you read instructionsNeverSafetyPatient feels safe in relationshipsYesDrugs/Alcohol/Caffeine:Do you drink alcohol?No Problems Problem Type SNOMED Code ICD Code Onset Dates Problem Status W/U Status Risk Notes Problem Exercises teaching, guidance, and counseling (338823951) Exercise counseling (Z71.82) ActiveconfirmedProblemMissed period (70795558)Missed period (N92.6)Active confirmedProblemVitamin D deficiency (11679276)Vitamin D deficiency (E55.9) ActiveconfirmedProblemBurning sensation of vagina (finding) (747982021)Vaginal burning (N94.9)ActiveconfirmedProblemAnxiety depression (482317444)Anxiety with depression (F41.8)ActiveconfirmedProblemDietary management surveillance (894211844)Dietary counseling (Z71.3)ActiveconfirmedProblemFemale infertility (5991957)Female fertility problem (N97.9)Activeconfirmed Vital Signs Heart Rate 95 /min 05/21/2025 Robert Shen 05/21/2025 01:17:11 PM EDT > Temperature 98.0 degrees Fahrenheit 05/21/2025 Dayron Banegas 05/21/2025 01:17:11 PM EDT > Respiratory Rate 18 /min 05/21/2025 Dayron Shen 05/21/2025 01:17:11 PM EDT > Oximetry 99 % 05/21/2025 Robert Shen 05/21/2025 01:17:11 PM EDT > Blood pressure diastolic 85 mm Hg 05/21/2025 Sonia Nuñezando 05/21/2025 01:17:11 PM EDT > Height-cm 172.72 cm 05/21/2025 Ac Ser jayleeno 05/21/2025 01:17:11 PM EDT > Weight-kg 128.82 kg 05/21/2025 Ac Ser vando 05/21/2025 01:17:11 PM EDT > Height 68 in 05/21/2025 Ac Ser vando 05/21/2025 01:17:11 PM EDT > Blood pressure systolic 141 mm Hg 05/21/2025 Dayron Banegas 05/21/2025 01:17:11 PM EDT > Weight 284 lbs 05/21/2025 Robert Shen 05/21/2025 01:17:11 PM EDT > BMI 43.18 kg/m2 05/21/2025 Robert Shen 05/21/2025 01:17:11 PM EDT > Encounters Encounter Location Date Provider Diagnosis [address] [id number] 11/06/2024 Sabiha Aviles Depression with anxi ety F41.8 and Hospital discharge follow-up Z09 [address] [place] [address] [id number] 11/12/2024 Sabiha Aviles Dysuria R30.[address] [id number] 12/04/2024 Sabiha Aviles Anxiety with depress ion F41.[address] [id number] 02/05/2025 Sabiha Aviles Encounter for [facility] examination Z00.00 ; Screening for cardiovascular condition Z13.6 ; Exercise counseling Z71.82 ; Nutritional counseling Z71.3 ; Screening for thyroid disorder Z13.29 and Vitamin D deficiency E55.9 [address] [place], [place] [id number] 05/21/2025 Judy Marleni Anxiety with depress ion F41.8 ; Left otitis media, unspecified otitis media type H66.92 ; 21 weeks gestation of Z3A.21 ; Severe obesity (BMI >= 40) E66.01 and BMI 40.0-44.9, adult Z68.41 [address] [place], [place] [id number] 04/26/2025 Noelle Chris Anxiety with depress ion F41.8 [address] [place], [place] [id number] 06/17/2025 Merary Espino Assessments Encounter Date Diagnosis [...] Of Treatment Next Appt Details Provider Name:Judy Wilkinsland , 08/27/2025 08:15:00 AM, [address] [place], [place], [id number], Insurance Providers Payer Name Payer Address Payer Phone Subscriber Number Group Number Insured Name Patient Relationship to Insured Coverage Start Date Coverage End Date [facility] [address] [place] [phone] [id number] Ellen Ramires Self - patient is the insured Medicaid [facility] after [address] [place], [place] [id number], Lauren Self - patient is the [id number] 2022 Medical (General) History Medical History History ICD Code anxiety depressionSurgical History Surgery Date(Month/Year) [place] teeth laparoscopy- endometriosis
[2025-08-09 10:37] VITALS: BP 126/66; PULSE 81
== END 2025-08-09 11:02 | disposition home or self-care (01) ==
LOC: US 10:16 → FBC 10:17
PROVIDERS: Visit Provider Obstetrics & Gynecology
DX: O10.913 Unspecified pre-existing hypertension complicating pregnancy, third trimester (principal); Z3A.32 32 weeks gestation of pregnancy
CPT/HCPCS: 76818

== ENCOUNTER 2025-08-13 10:07 | Outpatient (OUT) | payer MEDICAID, SELFPAY ==
--- OUTSIDE RECORDS SUMMARY | 2024-05-14 08:30 | XMS_ITS ---
Author Organization [facility] vices Address [address] [place], [place] [address] Care Team Providers Care Committee Member Name Role Phone Sabiha Aviles Primary Care Provider [phone] REASON FOR VISIT 3 mo Vit D Social History Sex Assigned At : Social History Observation Description Sex Assigned At Female Encounters Encounter Location Date Provider Diagnosis East [address] [place] [phone] 05/14 Sabiha Aviles Plan Of Treatment Next Appt Details Provider Name:Judy Yepez , 08/27/2025 08:15:00 AM, [address] [place], [place], [phone], Progress Notes * Chayo RAMIRESDOB: 2 (35 yo F)Acc No.[id number]:05/14/2024 Medical Note Patient: Trent murphy Chayo Lockwood :?Sabiha AvilesDOB:1990???Age:34 Y???Sex: FemaleDate:05/14/2024hone:[phone]:[address] [facility], [address], [place], [place] Subjective: * Chief Complaints: * 3 mo Vit D * Electronic signature of THEA Ward on 08/13/2025 at 10:10 AM ESTSign off status: Pending * Provider: Jill Aviles Date: 0 05/14/2024 Generated for Printing/Faxing/eTransmitting on:?08/13/2025 10:10 AM EST
--- OUTSIDE RECORDS SUMMARY | 2024-05-24 10:00 | XMS_ITS ---
Author Organization [facility] vices Address [address] [place], [place] [address] Care Team Providers Care Content Developer Name Role Phone Sabiha Aviles Primary Care Provider Noelle Chris Unavailable [phone] REASON FOR VISIT 3 mo Vit D Social History Sex Assigned At : Social History Observation Description Sex Assigned At Female Encounters Encounter Location Date Provider Diagnosis [place] [address] [place], [place] [phone] 05/24/2024 Noelle Chris Plan Of Treatment Next Appt Details Provider Name:Judy Yepez , 08/27/2025 08:15:00 AM, [address] [place], [place], [phone], Progress Notes * Chayo RAMIRESDOB: 2 (35 yo F)Acc No.[id number]:05/24/2024 Medical Note Patient: Trent murphy Chayo Lockwood :?DANA PerezCDOB:1990???Age:34 Y???Sex:FemaleDate:05/24/2024hone:[phone]:[address] [facility], [address], [place], [place]Zib:Sabiha Aviles Subjective: * Chief Complaints: * 3 mo Vit D Billing Information: * Procedure Codes: * Electronic signature of FABI Perez on 08/13/2025 at 10:10 AM EST Sign off status: Pending * Provider: FABI Acevedo Date: Generated for Printing/Faxing/eTransmitting on:?08/13/2025 10:10 AM EST
--- OUTSIDE RECORDS SUMMARY | 2024-06-25 10:00 | XMS_ITS ---
Author Organization [facility] vices Address [address] [place], [place] [address] Care Team Providers Care Clinical Education Assistant Name Role Phone Sabiha Aviles Primary Care Provider REASON FOR VISIT 3mo. F/U Vit. D. Social History Sex Assigned At : Social History Observation Description Sex Assigned At Female Encounters Encounter Location Date Provider Diagnosis [address] [id number] 06/25 Sabiha Aviles Plan Of Treatment Next Appt Details Provider Name:Judy Yepez , 08/27/2025 08:15:00 AM, [address] [place], [place], [id number], Progress Notes * Chayo RAMIRESDOB: 2 (35 yo F)Acc No.[id number]:06/25/2024 Medical Note Patient: Trent murphy Chayo Lockwood :?Sabiha AvilesDOB:1990???Age:34 Y???Sex: FemaleDate:06/25/2024hone:[phone]:[address] [place] [address], [address] [facility], [place], [id number] Subjective: * Chief Complaints: * 3 mo. F/U Vit. D. Billing Information: * Procedure Codes: * Electronic signature of THEA Ward on 08/13/2025 at 10:10 AM ESTSign off status: Pending * Provider: Jill Aviles Date: 08/25/2023 Generated for Printing/Faxing/eTransmitting on:?08/13/2025 10:10 AM EST
--- OUTSIDE RECORDS SUMMARY | 2025-03-05 08:15 | XMS_ITS ---
Author Organization [facility] vices Address [address] [place], [place] [phone] Care Team Providers Care Lithograph Press Feeder Name Role Phone Sabiha Aviles Primary Care Provider [phone] REASON FOR VISIT 3m depression, anxiety Social History Sex Assigned At : Social History Observation Description Sex Assigned At Female Encounters Encounter Location Date Provider Diagnosis East [address] [place] [phone] 03/05 Sabiha Aviles Plan Of Treatment Next Appt Details Provider Name:Judy Yepez , 08/27/2025 08:15:00 AM, [address] [place], [place], [phone], Progress Notes * Chayo RAMIRESDOB: 2 (35 yo F)Acc No.[id number]:03/05/2025 Medical Note Patient: Trent murphy Chayo Lockwood :?Sabiha AvilesDOB:1990???Age:34 Y???Sex: FemaleDate:03/05/2025Phone:[phone]:[address] [facility], [address], [place], [phone] Subjective: * Chief Complaints: * 3 m depression, anxiety * Electronic signature of THEA Ward on 08/13/2025 at 10:10 AM ESTSign off status: Pending * Provider: Jill Aviles Date: 0 03/05/2025 Generated for Printing/Faxing/eTransmitting on:?08/13/2025 10:10 AM EST
--- OUTSIDE RECORDS SUMMARY | 2025-05-20 08:15 | XMS_ITS ---
Author Organization [facility] vices Address [address], [place] [address] Care Team Providers Care Return Agent Airport Name Role Phone Sabiha Aviles Primary Care Provider Noelle Chris Unavailable REASON FOR VISIT depression Social History Sex Assigned At : Social History Observation Description Sex Assigned At Female Encounters Encounter Location Date Provider Diagnosis Main [address] [place], [place] [phone] 05/20/2025 Noelle Chris Plan Of Treatment Next Appt Details Provider Name:Judy Yepez , 08/27/2025 08:15:00 AM, [address] [place], [place], [phone], Progress Notes * Chayo RAMIRESDOB: 2 (35 yo F)Acc No.[id number]:05/20/2025 Medical Note Patient: Trent murphy Chayo [place] :?DANA PerezCDOB:1990???Age:35 Y???Sex:FemaleDate:05/20/2025Phone:[phone]:[address] [facility], [address] [facility], [place], [place]Fem:Sabiha Aviles Subjective: * Chief Complaints: * D epression Billing Information: * Procedure Codes: * Electronic signature of FABI Perez on 08/13/2025 at 10:09 AM EST Sign off status: Pending * Provider: FABI Acevedo Date: 0 05/20/2025 Generated for Printing/Faxing/eTransmitting on:?08/13/2025 10:09 AM EST
--- OUTSIDE RECORDS SUMMARY | 2025-07-30 14:00 | XMS_ITS | Encounter Summary ---
Author Organization [facility] tem Address [facility] [id number] [address] [place] [address] Care Team Providers Care Pnp Name Role Phone Services, Counts Include [address] At [facility] Primary Care Provider Reason for Visit * ReasonCommentsCHTNbmi Encounter Details DateTypeDepartmentCare Team (Latest Contact Info)Xfkwwrwwgcv09/09/2025 2:00 PM ESTOffice Visit Maternal- Medicine at [facility] [address] [place] [phone] Sheila Cruz MD [address] [facility] 1st [place] [address] Chronic hypertension affecting (Primary Dx); Anxiety disorder affecting , antepartum; Severe obesity due to excess calories affecting , antepartum ([facility]); Acute palmoplantar pustular psoriasis; Depression affecting ; [...] to get more.Never True07/30/2025 Estimated Date of HvynkcceJgaggingQvf42/11/2026ased on last menstrual period of 12/26/2024Sex and Gender InformationValueDate RecordedSex Assigned at BirthNot on fileLegal HnoJdzith19/09/2023 2:11 PM ESTGender IdentityNot on fileSexual OrientationNot on fileTravel HistoryTravel StartTravel QbtSxdgkfpyuyjr54/25/2025 07/20/2025documented as of this encounter Last Filed Vital Signs Vital SignReadingTime TakenCommentsBlood Cxkhyqmn732/8707/30/2025 1:48 PM EST Lyumy276807/30/2025 1:48 PM ESTTemperature--Respiratory Rate--Oxygen Saturation-- Inhaled Oxygen Concentration--Iwxvee597.9 kg (290 lb 12.8 oz)07/30/2025 1:48 PM ESTHeight--Body Mass Index44.23005/17/2025 7:51 AM EDTdocumented in this encounter Functional Status * BPAnswerDate of NzdlfvgkdzSiroyp398/8707/30/2025 1:48 PM Denita Coats MA * PulseAnswerDate of LdcpytgcdsQwdrsc6034/09/2025 1:48 PM Denita Coats MA * WeightAnswerDate of WgrlorjwhfAeijmp6137.8109/30/2024 1:48 PM Denita Coats MA * Food [...] PM Denita Coats MA * BPAnswerDate of FwshwxskeyNrbtea145 1:48 PM Denita Coats MA * PulseAnswerDate of ZegtlrzqgnQgshln1079/09/2025 1:48 PM Denita Coats MA * WeightAnswerDate of OrwoyuuonhBbsjhx5163.8109/30/2024 1:48 PM Denita Coats MA documented as of this encounter Mental Status * BPAnswerEntry OnifAxbedi640/ 1:48 PM Denita Coats MA * PulseAnswerEntry BvuwLgdjvz8704/09/2025 1:48 PM Denita Coats MA documented in [...] patient is in complete care of her yard hostler. Patient does have ultrasound and office visit [...] procedures Referring and communicating with other health patient care (not separately reported) Documenting clinical information in the electronic or other health record Sheila Cruz MD Maternal- Medicine [facility] [address] [address] This document was created with eIQnetworks technology. Though I make every effort to review the dictation as it is transcribed, on occasion the spoken word can be misinterpreted by the technology leading to inappropriate words, phrases, or sentences. This note is addressed to the requesting provider as a consultation for clinical guidance. Specificmedical abbreviations are occasionally used and those are generally approved by the [place]?Board of?Obstetrics and?Gynecology?as well as?Rama???s abbreviations. The above plan of care was based solely on the diagnoses for which a consultation was requested. ?More frequent testing may be indicated based on her other medical/obstetrical conditions. The management of other or medical conditions is beyond the scope of requested consultation and will c ontinue to be followed by the primary yard hostler or primary care provider. Note to patient: [...] Plan of Treatment DateTypeDepartmentCare Team (Latest Contact Info)Mhfdoiaccmc00/15/2026 2:00 PM ESTTelemedicine Maternal- Medicine at [facility] [address] [place] [address] Sheila Cruz MD [address] [address] documented as of this encounter Visit Diagnoses Diagnosis Chronic hypertension affecting - Primary Anxiety disorder affecting , antepartum Severe obesity due to excess calories affecting , antepartum ([facility]) Acute palmoplantar pustular psoriasis Other psoriasis Depression affecting 30 weeks gestation of documented in this encounter Care Teams Team MemberRelationshipSpecialtyStart DateEnd Date [facility], Counts Include [address] At [facility] [address] [place], [place] PCP - GeneralFamily Medicine11/03/24documented as of this encounter
--- OUTSIDE RECORDS SUMMARY | 2025-08-06 08:40 | XMS_ITS | Encounter Summary ---
Author Organization [facility] Address [address] [place] [address] Care Team Providers Care Investor Relations Director Name Role Phone Judy Caal Unavailable Unavailable Reason for Visit * ReasonCommentsRoutine Visit Encounter Details DateTypeDepartmentCare Team (Latest Contact Info)Gyjtanjuuhn49/16/2025 8:40 AM ESTRoutine [facility] [place] [facility] [address] [place] [phone] Caesar Broderick DO [address] [place] [address] 31 weeks gestation of ([facility]); Third trimester ([facility]); H/O pre-eclampsia in prior , currently ([facility]); Vitamin D deficiency Social History Tobacco UseTypesPacks/DayYears UsedDateSmoking Tobacco: NeverSmokeless Tobacco: NeverAlcohol UseStandard Drinks/WeekCommentsNever0 (1 standard drink = 0.6 oz pure alcohol)PHQ-2AnswerDate RecordedPatient Health Questionnaire-2 Score0 07/30/2025Estimated Date of ZqnrvwvqDsrjzwcjCkv13/11/2026ased on last menstrual period of 12/26/2024Sex and Gender InformationValueDate RecordedSex Assigned at BirthNot on fileLegal PcdKmdfxi33/06/2024 9:48 AM EDTGender Identity Not on fileSexual OrientationNot on fileTravel HistoryTravel StartTravel End Cbreyjlmhffa45documented as of this encounter Last Filed Vital Signs Vital SignReadingTime TakenCommentsBlood Mhxfikwt254/6808/06/2025 8:43 AM EST Pulse--Temperature--Respiratory Rate--Oxygen Saturation--Inhaled Oxygen Concentration--Pokfgu045 kg (291 lb 1.9 oz)08/06/2025 8:43 AM [...] am. Do not crush, chew, or split. Qilqcyol-Hay-Mc-FA ( 1 + IRON PO) sertraline (ZOLOFT) 50 mg, Every 24 hours ALLERGIES No Known Allergies PROBLEMS Active Ambulatory Problems Diagnosis Date Noted Fallopian tube disorder 07/30/2024 PCOS (polycystic ovarian syndrome) 07/30/2024 induced hypertension, antepartum ([facility]) 04/25/2025 Vitamin D deficiency 05/23/2025 H/O pre-eclampsia in prior , currently ([facility]) 05/23/2025 Resolved Ambulatory Problems Diagnosis Date [...] nursing note reviewed. Exam conducted with a service correspondent present. Vitals: Estimated body mass index is 44.26 kg/m?? as calculated from the following: Height as of 06/11/24: 5' 8 . Weight as of this encounter: 291 lb 1.9 oz. BP: 122/68 Patient's last menstrual period was 12/26/2024. Assessment/Plan ICD-10-CM 1. 31 weeks gestation of ([facility]) Z3A.31 POCT urinalysis dipstick manually resulted 2. Third trimester ([facility]) Z34.93 POCT urinalysis dipstick manually resulted 3. H/O pre-eclampsia in prior , currently ([facility]) O09.299 4. Vitamin D deficiency E55.9 Assessment/Plan [...] Plan of Treatment DateTypeDepartmentCare Team (Latest Contact Info)Rmyzvhtfoez26/30/2025 1:20 PM ESTRoutine [facility] [address] [place] [phone] Bethany Simon PA [address] [place] [address] 12/16/2025 3:00 PM EDTOffice Visit [facility] [address] [place] [phone] Caesar Broderick DO [address] [place], [place] [address] documented as of this encounter Procedures Procedure NamePriorityDate/TimeAssociated DiagnosisCommentsPOCT URINALYSIS GEJZZNREVpubmyl50/16/2025 8:46 AM EST 31 weeks gestation of ([facility]) Third trimester ([facility]) documented in this encounter Results * [...] / LateralityCollection Method / VolumeCollection Time Received OnhtEfqlp35/16/2025 8:46 AM EST Narrative Authorizing ProviderResult TypeResult StatusCorey Davie DOPOINT OF CARE TEST ENTER/EDIT ORDERABLESFinal Result documented in this encounter Visit Diagnoses Diagnosis 31 weeks gestation of ([facility]) Third trimester ([facility]) state, incidental H/O pre-eclampsia in prior , currently ([facility]) Vitamin D deficiency documented in this encounter Care Teams Team MemberRelationshipSpecialtyStart DateEnd Date Andres Caalyssa PCP - [facility] 02/20/24documented as of this encounter
--- OUTSIDE RECORDS SUMMARY | 2025-08-13 10:10 | XMS_ITS | Encounter Summary ---
Author Organization [facility] Address [address] [place] [address] Care Team Providers Care Local Area Network Administrator Name Role Phone Judy Caal Unavailable Unavailable Encounter Details DateTypeDepartmentCare Team (Latest Contact Info)Vnyfbkjdwjq89/12/2025linisync Result Encounter [facility] External Department Unsolicited Caesar Broderick DO [address] [place] [place] [address] Social History Tobacco UseTypesPacks/DayYears UsedDateSmoking Tobacco: NeverSmokeless Tobacco: NeverAlcohol UseStandard Drinks/WeekCommentsNever0 (1 standard drink = 0.6 oz pure alcohol)PHQ-2AnswerDate RecordedPatient Health Questionnaire-2 Score0 07/30/2025Estimated Date of YaxanjtnJrkfsvghHgh81/11/2026ased on last menstrual period of 12/26/2024Sex and Gender InformationValueDate RecordedSex Assigned at BirthNot on fileLegal AchSybytp03/06/2024 9:48 AM EDTGender Identity Not on fileSexual OrientationNot on fileTravel HistoryTravel StartTravel End Gdzsmvcjjrow49documented as of this encounter Plan of Treatment DateTypeDepartmentCare Team (Latest Contact Info)Ezzilhuabin44/30/2025 1:20 PM ESTRoutine [facility] [place] [facility] [address] [place] [address] Bethany Simon PA [address] [place] [address] 12/16/2025 3:00 PM EDTOffice Visit [facility] [place] [facility] [address] [place] [phone] Caesar Broderick, DO [address] [place] [address] documented as of this encounter Procedures Procedure NamePriorityDate/TimeAssociated DiagnosisCommentsUS OB BPP W NON-KASDXT0908/02/2025 4:49 PM EST documented in this encounter Results * US OB BPP W NON-STRESS (08/02/2025 4:49 PM EST)Anatomical Region LateralityModalityOtherSpecimen (Source)Anatomical Location / Laterality Collection Method / VolumeCollection TimeReceived Time08/02/2025 4:49 PM EST Narrative 08/02/2025 4:52 PM EST The [facility] ?[address] ? [place] [address] ? Ultrasound Report ? Signed ? Patient: ELLEN RAMIRES ?MR#: [id number] ?? : 1990 ?Acct:[id number] ?? Age/Sex: 35 / F ?ADM Date: 08/02/25 ?? Loc: US ? Attending Dr: Caesar Broderick D.O. ? Ordering Physician: Caesar Broderick D.O. ?? Date of Service: 08/02/25 ?? Procedure(s): US OB BPP w non-stress ?? Accession Number(s): [id number] ? cc: Caesar Broderick D.O.; Judy Yepez INFORMATION TECHNOLOGY TEACHER ? The [facility] ? [address] ? [place] [address] ? Patient Name: ?? ELLENJULISSA RAMIRES ? MRN: [id number] ? date: 1990 ?Sex: F ?? Assigned Patient Location: US ?? Current Patient Location: ? Accession/Order Number: [id number] ?? Exam Date: 08/02/2025 ??10:15 ?Report Date: [...] M.D. ??08/02/2025 4:49 PM ? Dictation Location: [facility]-- ? Electronically authenticated by: [id number] ??Y ?? Date: 08/02/2025 ??16:49 ? Dictated By: ?Raffy Gibson M.D. ? Signed By: ?08/02/25 1652 ? DD/ 1649 ? TD/TT: ? Ssn/Ssbn Weapons Equipment Operator: Procedure Note Radiology, Radiologist, - 08/02/2025 [place] [address] Ultrasound Report Signed Patient: ELLEN RAMIRES JMR#: [id number] : 1990Acct:[id number] Age/Sex: 35 / FADM Date: 08/02/25 Loc: US Attending Dr: Caesar Broderick D.O. Ordering Physician: Caesar Broderick D.O. Date of Service: 08/02/25 Procedure(s): US OB BPP w non-stress Accession Number(s): [id number] cc: Caesar Broderick D.O.; Judy Yepez INFORMATION TECHNOLOGY TEACHER The [place] [address] Patient Name: ELLEN RAMIRES MRN: [id number] date: 1990 Sex: F Assigned Patient Location: Current Patient Location: Accession/Order Number: [id number] Exam Date: 08/02/2025 10:15 Report Date: 08/02/2025 [...] Gibson M.D. 08/02/2025 4:49 PM Dictation Location: [place] [address] Electronically authenticated by: [id number] Y Date: 6:49 Dictated By: Raffy Gibson M.D. Signed By:08/02/251651 DD/ 48 TD/TT: Ssn/Ssbn Weapons Equipment Operator: Authorizing ProviderResult TypeResult StatusCorey Davie DOCLINISYNC IMAGINGFinal Result documented in this encounter Visit Diagnoses Not on filedocumented in this encounter Care Teams Team MemberRelationshipSpecialtyStart DateEnd Date Judy Caal PCP - [facility]02/20/24documented as of this encounter
--- OUTSIDE RECORDS SUMMARY | 2025-08-13 10:10 | XMS_ITS | Encounter Summary ---
Author Organization [facility] Address [address] [place] [address] Care Team Providers Care Upkeep Mechanic Name Role Phone Judy Caal Unavailable Unavailable Encounter Details DateTypeDepartmentCare Team (Latest Contact Info)Nmdbzurcjir92/12/2025linisync Result Encounter [facility] External Department Unsolicited Israel Broderick DO [address] [place] [address] Social History Tobacco UseTypesPacks/DayYears UsedDateSmoking Tobacco: NeverSmokeless Tobacco: NeverAlcohol UseStandard Drinks/WeekCommentsNever0 (1 standard drink = 0.6 oz pure alcohol)PHQ-2AnswerDate RecordedPatient Health Questionnaire-2 Score0 07/30/2025Estimated Date of FfjcgvecKinzpghkLtp47/11/2026ased on last menstrual period of 12/26/2024Sex and Gender InformationValueDate RecordedSex Assigned at BirthNot on fileLegal BmrHsiszy26/06/2024 9:48 AM EDTGender Identity Not on fileSexual OrientationNot on fileTravel HistoryTravel StartTravel End Mzqcqgwqbdwd00documented as of this encounter Plan of Treatment DateTypeDepartmentCare Team (Latest Contact Info)Lxdgsjzdbrs64/30/2025 1:20 PM ESTRoutine [facility] [place] [facility] [address] [place] [address] Bethany Simon PA [address] [place] [address] 12/16/2025 3:00 PM EDTOffice Visit [facility] [place] [facility] [address] [place] [phone] Israel Broderick, DO [address] [place] [address] documented as of this encounter Procedures Procedure NamePriorityDate/TimeAssociated DiagnosisCommentsUS OB GROWTH 08/02/2025 4:46 PM EST documented in this encounter Results * US OB GROWTH (08/02/2025 4:46 PM EST)Anatomical RegionLateralityModalityOther Specimen (Source)Anatomical Location / LateralityCollection Method / Volume Collection TimeReceived Time08/02/2025 4:46 PM EST Narrative 08/02/2025 4:49 PM EST The [facility] ?[address] ? [place] [address] ? Ultrasound Report ? Signed ? Patient: ELLEN RAMIRES ?MR#: [id number] ?? : 1990 ?Acct:[id number] ?? Age/Sex: 35 / F ?ADM Date: 08/02/25 ?? Loc: US ? Attending Dr: Israel Broderick D.O. ? Ordering Physician: Israel Broderick D.O. ?? Date of Service: 08/02/25 ?? Procedure(s): US OB growth ?? Accession Number(s): [id number] ? cc: Israel Broderick D.O.; Judy Yepez PARTITION SETTER ? [facility] ? [address] ? [place] [address] ? Patient Name: ?? ELLEN RAMIRES ? MRN: [id number] ? date: 1990 ?Sex: F ?? Assigned Patient Location: US ?? Current Patient Location: ? Accession/Order Number: [id number] ?? Exam Date: 08/02/2025 ??10:15 ?Report Date: [...] M.D. ??08/02/2025 4:46 PM ? Dictation Location: [place] [address] ? Electronically authenticated by: [id number] ??Y ?? Date: 08/02/2025 ??16:46 ? Dictated By: ?Raffy Gibson M.D. ? Signed By: ?08/02/25 1649 ? DD/ ? TD/TT: ? Ui Developer With Angular Js: Procedure Note Radiology, Radiologist, MD - 08/02/2025 [place] [address] Ultrasound Report Signed Patient: ELLEN RAMIRES JMR#: [id number] : 1990Acct:[id number] Age/Sex: 35 / FADM Date: 08/02/25 Loc: US Attending Dr: Israel Broderick D.O. Ordering Physician: Israel Broderick D.O. Date of Service: 08/02/25 Procedure(s): US OB growth Accession Number(s): [id number] cc: Israel Broderick D.O.; Judy Yepez NP The [address] [address] Patient Name: ELLEN RAMIRES MRN: [id number] date: 1990 Sex: F Assigned Patient Location: Current Patient Location: Accession/Order Number: [id number] Exam Date: 08/02/2025 10:15 Report Date: 08/02/2025 [...] Gibson M.D. 08/02/2025 4:46 PM Dictation Location: [place] [address] Electronically authenticated by: [id number] Y Date: 6:46 Dictated By: Raffy Gibson M.D. Signed By:08/02/259 DD/ 45 TD/TT: Ui Developer With Angular Js: Authorizing ProviderResult TypeResult StatusCorenitesh Broderick DOCLINISYNC IMAGINGFinal Result documented in this encounter Visit Diagnoses Not on filedocumented in this encounter Care Teams Team MemberRelationshipSpecialtyStart DateEnd Date Judy Caal PCP - [facility]02/20/24documented as of this encounter
--- OUTSIDE RECORDS SUMMARY | 2025-08-13 10:10 | XMS_ITS | Encounter Summary ---
Author Organization [facility] tem Address [id number] [address] [place] [address] Care Team Providers Care Client Support Associate Name Role Phone Services, [facility] Primary [facility] Provider Encounter Details DateTypeDepartmentCare Team (Latest Contact Info)Qvamogaudau37/09/2025Telephone Maternal- Medicine at [facility] [address] [place] [phone] Antonina Mcdonough Social History Tobacco UseTypesPacks/DayYears UsedDateSmoking [...] to get more.Never True07/30/2025 Estimated Date of CpcdodzdGwxzhyzqZia49/11/2026ased on last menstrual period of 12/26/2024Sex and Gender InformationValueDate RecordedSex Assigned at BirthNot on fileLegal OljGcpzci16/04/2023 2:11 PM ESTGender IdentityNot on fileSexual OrientationNot on fileTravel HistoryTravel StartTravel QonJltjtxjvwzrm96/25/2025 07/20/2025documented as of this encounter Plan of Treatment DateTypeDepartmentCare Team (Latest Contact Info)Fqwnxizdxtx25/15/2026 2:00 PM ESTTelemedicine Maternal- Medicine at [facility] [address] [place] [address] Sheila Cruz MD [address] [facility] 1[address] [place] [address] documented as of this encounter Visit Diagnoses Not on filedocumented in this encounter Care Teams Team MemberRelationshipSpecialtyStart DateEnd Date Services, [facility] [address] [place] PCP - GeneralFamily Medicine11/03/24documented as of this encounter
--- OUTSIDE RECORDS SUMMARY | 2025-08-13 10:10 | XMS_ITS | Encounter Summary ---
Author Organization [facility] Address [address] [facility] [place] [address] Care Team Providers Care Supervisor Pastry Name Role Phone Judy Caal Unavailable Unavailable Encounter Details DateTypeDepartmentCare Team (Latest Contact Info)Dofuqsestkv09/09/2025Patient Outreach [facility] [address] [place] [place] [phone] Bethany Sheehan LPN [address] [place] [address] Social History Tobacco UseTypesPacks/DayYears UsedDateSmoking Tobacco: NeverSmokeless Tobacco: NeverAlcohol UseStandard Drinks/WeekCommentsNever0 (1 standard drink = 0.6 oz pure alcohol)PHQ-2AnswerDate RecordedPatient Health Questionnaire-2 Score0 07/30/2025Estimated Date of DirxbauoVwfordkvMbm35/11/2026ased on last menstrual period of 12/26/2024Sex and Gender InformationValueDate RecordedSex Assigned at BirthNot on fileLegal SlrRjmyam34/06/2024 9:48 AM EDTGender Identity Not on fileSexual OrientationNot on fileTravel HistoryTravel StartTravel End Xoelceswhrro31documented as of this encounter Functional Status * Over the past 2 weeks, how often have you been bothered by any of the following problems?QuestionAnswerDate of AssessmentAuthorLittle interest or pleasure in doing thingsNot at all07/30/2025 2:43 PM ESTChapman, Bethany, ACCOUNTS RECEIVABLE ASSISTANT Feeling down, depressed, or hopelessNot at all07/30/2025 2:43 PM Bethany Langford LPNPatient Health Questionnaire-2 Ftxum91609/30/2024 2:43 PM Bethany Langford LPN documented as [...] Plan of Treatment DateTypeDepartmentCare Team (Latest Contact Info)Vhsedhjhgub37/30/2025 1:20 PM ESTRoutine [facility] [address] [phone] Bethany Simon, PA [address] [place], [facility] 12/16/2025 3:00 PM EDTOffice Visit [facility] [address] [phone] Caesar Broderick DO [address] [place], [place] [id number] documented as of this encounter Visit Diagnoses Not on filedocumented in this encounter Care Teams Team MemberRelationshipSpecialtyStart DateEnd Date Judy Caal PCP - [facility]02/20/24documented as of this encounter
--- OUTSIDE RECORDS SUMMARY | 2025-08-13 10:10 | XMS_ITS | Clinical Summary ---
Author Organization [facility] Healthcare Address [address] [place] [address] Care Team Providers Care Milking Worker Name Role Phone Judy Caal Unavailable [...] MG 24 hr tablet Indications:Chronic hypertension affecting ([facility])Take 1 tablet (60 mg) by mouth at noon and 1 tablet (60 mg) in the evening. Take 1 tablet in the am. Do not crush, chew, or split. 30 tablet 6Active Eotzcpor-Zpj-Aa-FA ( 1 + IRON PO) PrenatalActive magnesium [...] time08/06/2025Discontinued Active Problems ProblemNoted DateDiagnosed DateVitamin D jzdkpsthuy00/02/2025H/O pre-eclampsia in prior , currently ([facility])05/23/2025Pregnancy induced hypertension, antepartum ([facility])04/25/2025Fallopian tube ksuaczxu63/09/2024 PCOS (polycystic ovarian syndrome)07/30/2024Estimated Date of Delivery WcithhcxVbs25/11/2026ased on last menstrual period of 12/26/2024 Encounters DateTypeDepartmentCare NxfePhuqaswioow11/19/2025linisync Result Encounter [facility] External Department Unsolicited Israel Broderick, DO 08/06/2025 8:40 AM [place] [address] Israel Broderick, DO 31 weeks gestation of ([facility]); Third trimester ([facility]); H/O pre-eclampsia in prior , currently ([facility]); Vitamin D awydgoktub25/16/2025bstract [facility] [address] [place] [address] [place] Broderick, DO 08/06/2025amboo flowsheet [facility] [address] [place] [address] Israel Broderick, DO 08/05/20253349Iqmvon85/12/2025Clinisync Result Encounter NOMS External Department Unsolicited Israel Broderick, DO 08/02/2025linisync Result Encounter NOMS External Department Unsolicited Israel Broderick, DO 07/30/2025Patient Outreach [facility] [address] [place] [address] Bethany Sheehan LPN 07/24/2025 11:20 AM ESTRoutine [facility] [address] [place] [address] Israel Broderick, DO Third trimester ([facility]); 30 weeks gestation of ([facility])5Bamboo flowsheet [facility] [address] [place] [address] Israel Broderick, DO 07/23/20259442Ffehds45/02/2025Clinisync Result Encounter NOMS External Department Unsolicited DavieJuliocesary, DO 5Clinisync Result Encounter NOMS External Department Unsolicited Davie [place], DO 5Clinisync Result Encounter NOMS External Department Unsolicited DavieJuliocesary, DO 07/09/2025 1:20 PM ESTRoutine [facility] [address] [place] [address] Bethany Simon, PA 27 weeks gestation of ([facility]); Second trimester ([facility]); H/O pre-eclampsia in prior , currently ([facility]); Vitamin D deficiency; Chronic hypertension affecting ([facility]); BV (bacterial vaginosis)07/09/2025amboo flowsheet [facility] OBGYRafal [address] [place] [address] Bethany Simon PA 5Clinisync Result Encounter NOMS External Department Unsolicited [place] Broderick, DO 07/05/2025Telephone [facility] [address] [address] Tsering Willingham MA 5Clinisync Result Encounter NOMS External Department Unsolicited [place] Broderick, DO 07/02/2025Patient Outreach [facility] [address] [place] [address] Bethany Sheehan LPN 06/24/2025 1:50 PM ESTRoutine [facility] [address] [facility] [address] Israel Broderick, DO Second trimester ([facility]); 25 weeks gestation of ([facility]); H/O pre-eclampsia in prior , currently ([facility]); Vitamin D deficiency; Chronic hypertension affecting ([facility]); Diabetes mellitus ofpykcget90/03/2025amb flowsheet [facility] [place] [facility] [address] [place] [address] Israel Broderick DO 06/23/20255584Crtjai84/15/2025 8:50 AM EDTRoutine [facility] [address] [place] [address] [place] Qiu NP Second trimester ([facility]); 23 weeks gestation of ([facility])06/05/2025amboo flowsheet [facility] [place] [facility] [address] [place] [address] Rosie Qiu NP 06/04/2025Patient Outreach [facility] [address] [place] [address] Bethany Sheehan LPN 05/31/2025bstract [facility] [address] [place] [address] Bethany Sheehan LPN 05/30/2025 3:20 PM EDTRoutine [facility] [address] [place] [address] [place] Qiu NP Chronic hypertension affecting ([facility]) (Primary Dx); Second trimester ([facility]); 22 weeks gestation of ([facility])05/30/2025amboo flowsheet [facility] [address] [place] [address] [place] Qiu NP 05/29/20258140Opnulr75/07/2025Telephone [facility] [address] [place] [address] Almaraz Melanie, CLARY 05/23/2025 2:30 PM EDTRoutine [facility] [address] [place] [address] [place] Qiu, JEM Second trimester ([facility]); 21 weeks gestation of ([facility]); induced hypertension, antepartum ([facility]); Vitamin D deficiency; H/O pre-eclampsia in prior , currently ([facility])05/23/2025 Clinisync Result Encounter NOMS External Department Unsolicited Israel Broderick, DO 05/23/2025amboo flowsheet [facility] [place] [facility] [address] [place] [address] [place] iQu, JEM 05/22/20253633Hgsqrb60/29/2025bstract [facility] [address] [facility] [place] [address] Tsering Willingham MA 05/17/2025External Result Encounter [facility] [address] [facility] [place] [address] Israel Broedrick, 05/15/2025Refill [facility] [address] [facility] [place] [address] Israel Broderick, Second trimester ([facility]); Gestational hypertension, antepartum ([facility])05/15/2025Telephone [facility] [address] [facility] [address] Israel Broderick DO from Last 3 Months [...] 0.6 oz pure alcohol)PHQ-2AnswerDate RecordedPatient Health Questionnaire-2 Ymelm08709/30/2024 Estimated Date of RsmmyfamPdvrulruZac68/11/2026ased on last menstrual period of 12/26/2024Sex and Gender InformationValueDate RecordedSex Assigned at BirthNot on fileLegal QrcQuokha99/06/2024 9:48 AM EDTGender IdentityNot on file Sexual OrientationNot on fileTravel HistoryTravel StartTravel EndPen[place] Last Filed Vital Signs Vital SignReadingTime TakenCommentsBlood Soefyhvt157/6808/06/2025 8:43 AM EST Pulse--Temperature--Respiratory Rate--Oxygen Saturation--Inhaled Oxygen Concentration--Rnpstv632 kg (291 lb 1.9 oz)08/06/2025 8:43 AM ZYGXdopoy356.7 cm (5' 8 )06/11/2024 2:39 PM EDTBody Mass Index44.261 2:39 PM EDT Plan of Treatment DateTypeDepartmentCare Team (Latest Contact Info)Laoncurkwhe59/30/2025 1:20 PM ESTRoutine [facility] OBRAZN [address] [facility] [place] [address] Bethany Simon PA [address] [place] [address] 12/16/2025 3:00 PM EDTOffice Visit [facility] [address] [facility] [address] [address] [place] Broderick, DO [address] [place], [place] [phone] Health MaintenanceDue DateLast DoneCommentsCOVID-19 Vaccine (1 - 2024- season) 2025Influenza Vaccine (#1)2025HPV/Zlhrjv17/ervical Cancer Iptkvwlfl28/21/2028Pap Smear/, 3Pneumococcal Vaccine: Pediatrics (0 to 5 Years) and At-Risk Patients (6 to 64 Years)Aged Out No longer eligible based on patient's age to complete this topic Procedures Procedure NamePriorityDate/TimeAssociated DiagnosisCommentsUS OB BPP W NON-ZFMRFY9808/09/2025 10:47 AM EST POCT URINALYSIS IKRIUVJIGcypiui47/16/2025 8:46 AM EST 31 weeks gestation of ([facility]) Third trimester ([facility]) US OB BPP W NON-KYCHSO6508/02/2025 4:49 PM EST US OB HDVLOG7408/02/2025 4:46 PM EST POCT URINALYSIS RUWMZQPCDueoneg43/03/2025 11:40 AM EST 30 weeks gestation of ([facility]) US OB BPP W NON-PDHBLZ0907/23/2025 10:49 AM EST OB IDSUTP9407/12/2025 2:57 PM EST US OB BPP W NON-UBWUMC9807/12/2025 2:56 PM EST POCT URINALYSIS IUKVPRVXAzlxtrc57/18/2025 1:46 PM EST 27 weeks gestation of ([facility]) Second trimester ([facility]) GLUCOSE TOLERANCE 3 CMOOGpfecnx38/15/2025 8:09 AM EST ALL CBC WITH AUTO MOTFKmwlyjl63/15/2025 8:09 AM EST GLUCOSE 1 VJPQKeyeozs58/13/2025 10:25 AM EST ALL CBC WITH AUTO NWPGGbxzata07/13/2025 10:25 AM EST POCT URINALYSIS GRTMSUUQKfotnxw54/03/2025 1:51 PM EST Second trimester ([facility]) POCT URINALYSIS IIPMNYKNGwgsjjc90/15/2025 9:03 AM EDT Second trimester ([facility]) POCT URINALYSIS DPYYFVISWqpbtro59/09/2025 3:24 PM EDT 22 weeks gestation of ([facility]) AFP, SERUM, OPEN SPINA HISJCXKzvovlk65/02/2025 2:30 PM EDT US OB 14+ WEEKS ANATOMY SCAN05/17/2025 4:39 PM EDT PAP KOYHKGncybex71/21/2025 12:00 AM EDTfrom Last 3 Months or Most Recently Relevant to Health Maintenance Results * US OB BPP W NON-STRESS (08/09/2025 10:47 AM EST) Only the most recent of4 resultswithin the time period is included. Anatomical RegionLateralityModalityOtherSpecimen (Source)Anatomical Location / LateralityCollection Method / VolumeCollection TimeReceived Time08/09/2025 10:47 AM EST Narrative 08/09/2025 10:50 AM EST [facility] ?[address] ? [place] [address] ? Ultrasound Report ? Signed ? Patient: RAMIRES,ELLEN J ?MR#: [id number] ?? : 1990 ?Acct:[id number] ?? Age/Sex: 35 / F ?ADM Date: //25 ?? Loc: [facility] ??250-1 ? Attending Dr: Israel Broderick D.O. ? Ordering Physician: Israel Broderick D.O. ?? Date of Service: 08/09/25 ?? Procedure(s): US OB BPP w non-stress ?? Accession Number(s): [id number] ? cc: [place] Broderick D.O.; Judy Yepez HEAD MACHINE FEEDER ? [facility] ? [address] ? [place] [address] ? Patient Name: ?? ELLEN RAMIRES ? MRN: [facility]:[id number] ? date: 1990 ?Sex: F ?? Assigned Patient Location: [facility] ?? Current Patient Location: [facility] ?? Accession/Order Number: [id number] ?? Exam Date: 08/09/2025 ??10:20 ?Report Date: 08/09/2025 ??10:47 ? At the request of: ?? ISRAEL ??DAVIE ??DO ? Procedure: ??US OB BPP w non-stress ? BIOPHYSICAL PROFILE: ? CLINICAL INFORMATION: Chronic hypertension affecting O10.919 ? COMPARISON: 08/02/2025 ? There is a single live intrauterine gestation in cephalic presentation. ??The ?? reported gestational age is 32 weeks 2 days. ??The heart rate measures ?? 150 beats per minute. ? FINDINGS: ? TONE: [...] 2 cm ? [Y] ? 2/2 ?CHETAN: 12.5 cm. ? Total score: ? 8/8 ? US/US OB BPP w non-stress ?? IMPRESSION: ? NORMAL BIOPHYSICAL PROFILE ? Impression dictated by: Kita Florentino M.D. ??08/09/2025 10:47 AM ? Dictation Location: RADIO-PC-30 ? Electronically authenticated by: [id number] ??Y ?? Date: 08/09/2025 ??10:47 ? Dictated By: ?Kita Florentino M.D. ? Signed By: ?12/19/25 1050 ? DD/DT: 08/09/7 ? TD/TT: ? Occupational Therapy Director: Procedure Note Radiology, Radiologist, - 08/09/2025 [place] [address] Ultrasound Report Signed Patient: ELLEN RAMIRES JMR#: [id number] : 1990Acct:[id number] Age/Sex: 35 / FADM Date: 08/09/25 Loc: [facility] 250-[address]: Israel Broderick D.O. Ordering Physician: Israel Broderick D.O. Date of Service: 08/09/25 Procedure(s): US OB BPP w non-stress Accession Number(s): [id number] cc: [place] Broderick D.O.; Judy Yepez NP [facility] [place] [address] Patient Name: ELLEN RAMIRES MRN: [facility]:[id number] date: 1990 Sex: F Assigned Patient Location: [facility] Current Patient Location: [facility] Accession/Order Number: [id number] Exam Date: 08/09/2025 10:20 Report Date: 08/09/2025 10:47 At the request of: ISRAEL BRODERICK DO Procedure: US OB BPP w non-stress BIOPHYSICAL PROFILE: CLINICAL INFORMATION: Chronic hypertension affecting O10.919 COMPARISON: 08/02/2025 There is a single live intrauterine gestation in cephalic presentation.The reported gestational age is 32 weeks 2 days. The heart ratemeasures 150 beats per minute. FINDINGS: TONE: 1 or [...] greater than 2 cm [Y] 2/2 CHETAN: 12.5 cm. Total score: 8/8 US/US OB BPP w non-stress IMPRESSION: NORMAL BIOPHYSICAL PROFILE Impression dictated by: Kita Florentino M.D. 08/09/2025 10:47 AM Dictation Location: [place] [address] Electronically authenticated by: [id number] Y Date: 0:47 Dictated By: Kita Florentino M.D. Signed By:08/09/25 1050 DD/ 1047 TD/TT: Occupational Therapy Director: Authorizing ProviderResult TypeResult StatusCorenitesh Broderick DOCLINISYNC IMAGINGFinal Result * (ABNORMAL) POCT urinalysis dipstick manually resulted [...] Location / LateralityCollection Method / VolumeCollection TimeReceived QcaeFnodv81/16/2025 8:46 AM EST Narrative Authorizing ProviderResult TypeResult StatusIsrael Broderick DOPOINT OF CARE TEST ENTER/EDIT ORDERABLESFinal Result * US OB GROWTH (08/02/2025 4:46 PM EST) Only the most recent of2 resultswithin the time period is included. Anatomical RegionLateralityModalityOtherSpecimen (Source)Anatomical Location / LateralityCollection Method / VolumeCollection TimeReceived Time08/02/2025 4:46 PM EST Narrative 08/02/2025 4:49 PM EST [facility] ?[address] ? [place] [address] ? Ultrasound Report ? Signed ? Patient: RAMIRES,ELLEN J ?MR#: [id number] ?? : 1990 ?Acct:[id number] ?? Age/Sex: 35 / F ?ADM Date: 12/12/25 ?? Loc: US ? Attending Dr: Israel Broderick D.O. ? Ordering Physician: Israel Broderick D.O. ?? Date of Service: 08/02/25 ?? Procedure(s): US OB growth ?? Accession Number(s): [id number] ? cc: Israel Broderick D.O.; Judy Yepez HEAD MACHINE FEEDER ? [facility] ? [address] ? [place] [address] ? Patient Name: ?? ELLEN RAMIRES ? MRN: [facility]:[id number] ? date: 1990 ?Sex: F ?? Assigned Patient Location: US ?? Current Patient Location: ? Accession/Order Number: [id number] ?? Exam Date: 08/02/2025 ??10:15 ?Report Date: [...] M.D. ??08/02/2025 4:46 PM ? Dictation Location: [facility]-- ? Electronically authenticated by: [id number] ??Y ?? Date: 08/02/2025 ??16:46 ? Dictated By: ?Raffy Gibson M.D. ? Signed By: ?08/02/251648 ? DD/ 1646 ? TD/TT: ? Occupational Therapy Director: Procedure Note Radiology, Radiologist, MD - 08/02/2025 [place] [address] Ultrasound Report Signed Patient: ELLEN RAMIRES JMR#: [id number] : 1990Acct:[id number] Age/Sex: 35 / FADM Date: 08/02/25 Loc: US Attending Dr: Israel Broderick D.O. Ordering Physician: Israel Broderick D.O. Date of Service: 08/02/25 Procedure(s): US OB growth Accession Number(s): [id number] cc: [place] Broderick D.O.; Judy Yepez NP The [place] [id number] Patient Name: ELLEN RAMIRES MRN: [id number]:[id number] date: 1990 Sex: F Assigned Patient Location: Current Patient Location: Accession/Order Number: [id number] Exam Date: 08/02/2025 10:15 Report Date: 08/02/2025 [...] 08/02/2025 4:46 PM Dictation Location: [place] [address] Electronically authenticated by: [id number] Y Date: 6:46 Dictated By: Raffy Gibson M.D. Signed By:08/02/251648 DD/ 45 TD/TT: Occupational Therapy Director: Authorizing ProviderResult TypeResult StatusCorey Davie STRICKLANDLINISYGEOVANY IMAGINGFinal Result * GLUCOSE TOLERANCE 3 HOUR [...] ORDERABLES Final ResultPerforming OrganizationAddressCity/State/ZIP CodePhone Number [facility]ISYNC [facility] * (ABNORMAL) ALL CBC WITH [...] - 35.2 g/dLTBHTBH RDW13.011.0 - 15.0 %TBHTBH [id number] - 450 10 3/uLTBHTBH MPV10.59.5 - 13.5 [...] Davie DOCLINISYNCFinal Result Performing OrganizationAddressCity/State/ZIP CodePhone Number [facility] * (ABNORMAL) GLUCOSE 1 HOUR (07/04/2025 10:25 AM EST)ComponentValueRef RangeTest MethodAnalysis TimePerformed AtPathologist SignatureGLUCOSE 1 MNDF099(H)<130 mg/dLTBHSpecimen (Source)Anatomical Location / LateralityCollection Method / VolumeCollection TimeReceived Time07/04/2025 10:25 AM EST07/04/2025 10:33 AM EST Narrative [facility] - 07/04/2025 11:32 AM EST Authorizing ProviderResult TypeResult StatusCorey Davie MCNAIR BLOOD ORDERABLES Final ResultPerforming OrganizationAddressCity/State/ZIP CodePhone Number [facility] * AFP, SERUM, OPEN SPINA BIFIDA (05/23/2025 2:30 PM EDT)ComponentValueRef Range Test MethodAnalysis TimePerformed AtPathologist SignatureRESULTSReport.TBHTEST RESULTS:*Screen Negative*.TBHGEST. AGE ON COLLECTION DATE21.1. weeksTBH GESTAT. AGE BASED ONLMP.TBHComment: Recalculations are not recommended when gestational dating by LMP and ultrasound are within 10 days. MATERNAL AGE AT EDD33.5. yrTBHRACECaucasian.XNYRZZIYI149. lbsTBHINSULIN DEP DIABETESNo.TBHMULTIPLE GESTATIONNo.TBHAFP VALUE38.2. ng/mLTBHAFP MOM0.85.TBHOSBR RISK 1 VF30968.TBHINTERPRETATIONComment.TBHComment: Interpretation: Screen Negative This result is screen [...] Customer Services to discuss available options. ??The [employer] recommends amniocentesis be offered to women age 35 and older. COMMENT:Comment.TBHComment: Gema Ortez, Ph.D., [facility] Director References: Available Upon Request. Multiples Of Median Cutoffs ?For AFP Elevations Kumar ?? 2.5 ? Black ?2.8 IDD ? 2.0 ? Twins ?4.5 ?Abbreviation Definitions IDD - Insulin Dep Diabetes OSBR - Open Spina Bifida Risk For further inquiries contact [facility] at [phone]. This test was developed and its performance characteristics determined by [employer]. It has not been cleared or approved by the Food and Drug Administration. Performed at: ??TG - [facility] [address] [place], [place] ??[id number] Resolution Agent: Jesus Saleh [facility], Phone: ??[phone] Specimen (Source)Anatomical Location / LateralityCollection Method / Volume Collection TimeReceived Time05/23/2025 2:30 PM EDT1 2:40 PM EDT Narrative CLIN[facility]NC - 05/25/2025 1:07 AM EDT N N LMP [id number] 2 9 N 1 282 N N N N N White/ Authorizing ProviderResult TypeResult StatusCorey Davie DOLAB BLOOD ORDERABLES Final ResultPerforming OrganizationAddressCity/State/ZIP CodePhone Number [facility] * OB 14+ weeks anatomy scan (05/17/2025 4:39 PM EDT)Anatomical Region LateralityModalityBodyUltrasoundSpecimen (Source)Anatomical Location / LateralityCollection Method / VolumeCollection TimeReceived Time05/17/2025 4:39 PM EDT Narrative 05/17/2025 4:39 PM EDT THIS EXAM WAS PERFORMED AT [facility] NAME: ??PAULA HUGHES : 1990 SEX: F Accession Number: [id number] ORDERING PHYSICIAN: ISRAEL BRODERICK REFERRING PHYSICIAN: ISRAEL BRODERICK Coding Procedures ? 45771: Ultrasound, uterus, real time with image documentation, and maternal evaluation ? plus detailed anatomic examination, transabdominal approach;single or first gestation ? 99673: Ultrasound, uterus, real time with image documentation, transvaginal Indication Screening for Anatomic Survey , Screening for cervical length , Anxiety , Depression , Gestational hypertension without significant proteinuria , Obesity in , History of gestational hypertension. History OB History ? 2. Para 1 ? W1X3E3L3 Maternal Assessment Physical Exam ??Height 173 cm, [...] (oz) ? 13 oz EFW by: ?Hadlock (WZL-QS-GS-FL) Extended Tibia ??23.0 mm 18w 1d 2% [...] Heart/Thorax: RVOT view. LVOT view. 3-vessel view. 7-hfdewf-vhyaobe view. Situs. Bicaval view. Cardiac position. ? [...] left ovarian cyst noted. Recommendations Please see [facility] documentation from today. The patient is scheduled in four to six week(s) to complete anatomic survey. Subsequent follow up or other follow up as clinically determined by primary OB provider unless otherwise specified by [facility]. Results forwarded to ordering provider so they can follow up with the patient as necessary. Procedure Note Radiology, Radiologist, MD - 05/17/2025 THIS EXAM WAS PERFORMED AT [facility] NAME: PAUAL HUGHES : 1990 SEX: F Accession Number: [id number] ORDERING PHYSICIAN: ISRAEL BRODERICK REFERRING PHYSICIAN: ISRAEL BRODERICK Coding Procedures 95385: Ultrasound, uterus, real time with image documentation, and maternal evaluation plus detailed anatomic examination, transabdominalapproach;single or first gestation 02872: Ultrasound, uterus, real time with imagedocumentation, transvaginal Indication Screening for Anatomic Survey , Screening for cervical length , Anxiety , Depression , Gestational hypertension without significant proteinuria , Obesity in , History of gestational hypertension. History OB History 2. Para 1 K2D8H1P9 Maternal Assessment Physical Exam Height 173 cm, [...] EFW (oz) 13 oz EFW by: Hadlock (FMK-BK-RU-FL) Extended Tibia 23.0 mm 18w 1d 2% [...] Heart/Thorax: RVOT view. LVOT view. 3-vessel view. 0-xmbkfy-firibbq view.Situs. Bicaval view. Cardiac position. Cardiac axis. [...] Insurance Care Teams Team MemberRelationshipSpecialtyStart DateEnd Date Andres Caalyssa PCP - [facility]02/20/24
--- OUTSIDE RECORDS SUMMARY | 2025-08-13 10:10 | XMS_ITS | Encounter Summary ---
Author Organization [facility] Address [address] [place] [address] Care Team Providers Care Newspaper Photo Editor Name Role Phone Judy Caal Unavailable Unavailable Encounter Details DateTypeDepartmentCare Team (Latest Contact Info)Uhplalrkagy98/16/2025bstract [facility] [address] [place] [address] Caesar Broderick DO [address] [address] Social History Tobacco UseTypesPacks/DayYears UsedDateSmoking Tobacco: NeverSmokeless Tobacco: NeverAlcohol UseStandard Drinks/WeekCommentsNever0 (1 standard drink = 0.6 oz pure alcohol)PHQ-2AnswerDate RecordedPatient Health Questionnaire-2 Score0 07/30/2025Estimated Date of SvuutbaiAnllwmnaLug09/11/2026ased on last menstrual period of 12/26/2024Sex and Gender InformationValueDate RecordedSex Assigned at BirthNot on fileLegal PydAljgoj18/06/2024 9:48 AM EDTGender Identity Not on fileSexual OrientationNot on fileTravel HistoryTravel StartTravel End Avicykbrbyts66documented as of this encounter Plan of Treatment DateTypeDepartmentCare Team (Latest Contact Info)Argojxukvyh09/30/2025 1:20 PM ESTRoutine [facility] [address] [place] [address] Bethany Simon PA [address] [place] [address] 12/16/2025 3:00 PM EDTOffice Visit [facility] [address] [place] [address] Caesar Broderick DO [address] [address] documented as of this encounter Visit Diagnoses Not on filedocumented in this encounter Care Teams Team MemberRelationshipSpecialtyStart DateEnd Date Judy Caal PCP - [facility]02/20/24documented as of this encounter
--- OUTSIDE RECORDS SUMMARY | 2025-08-13 10:10 | XMS_ITS | Encounter Summary ---
Author Organization [facility] Address [address] [place] [address] Care Team Providers Care Geriatric Physical Therapist Name Role Phone Judy Caal Unavailable Unavailable Encounter Details DateTypeDepartmentCare Team (Latest Contact Info)Gxrkabbqvoa21/19/2025linisync Result Encounter [facility] Unsolicited Israel Broderick DO [address] [place] [address] Social History Tobacco UseTypesPacks/DayYears UsedDateSmoking Tobacco: NeverSmokeless Tobacco: NeverAlcohol UseStandard Drinks/WeekCommentsNever0 (1 standard drink = 0.6 oz pure alcohol)PHQ-2AnswerDate RecordedPatient Health Questionnaire-2 Score0 07/30/2025Estimated Date of YyqzcsgoRlkrnuphHfu97/11/2026ased on last menstrual period of 12/26/2024Sex and Gender InformationValueDate RecordedSex Assigned at BirthNot on fileLegal BirCpegtr44/06/2024 9:48 AM EDTGender Identity Not on fileSexual OrientationNot on fileTravel HistoryTravel StartTravel End Bukxrblpunsm59documented as of this encounter Plan of Treatment DateTypeDepartmentCare Team (Latest Contact Info)Fpvlhhgqkxq59/30/2025 1:20 PM ESTRoutine [facility] [place] [facility] [address] [place] [address] Bethany Simon PA [address] [place] [address] 12/16/2025 3:00 PM EDTOffice Visit [facility] [place] [facility] [address] [id number] Israel Broderick, DO [address] [place] [address] documented as of this encounter Procedures Procedure NamePriorityDate/TimeAssociated DiagnosisCommentsUS OB BPP W NON-DVVNSS5408/09/2025 10:47 AM EST documented in this encounter Results * US OB BPP W NON-STRESS (08/09/2025 10:47 AM EST)Anatomical Region LateralityModalityOtherSpecimen (Source)Anatomical Location / Laterality Collection Method / VolumeCollection TimeReceived Time08/09/2025 10:47 AM EST Narrative 08/09/2025 10:50 AM EST [facility] ?[address] ? [place] [address] ? Ultrasound Report ? Signed ? Patient: ELLEN RAMIRES ?MR#: [id number] ?? : 1990 ?Acct:[id number] ?? Age/Sex: 35 / F ?ADM Date: 08/09/25 ?? Loc: [facility] ??250-1 ? Attending Dr: Israel Broderick D.O. ? Ordering Physician: Israel Broderick D.O. ?? Date of Service: 08/09/25 ?? Procedure(s): US OB BPP w non-stress ?? Accession Number(s): [id number] ? cc: Israel Broderick D.O.; Judy Yepez DRIVER STARTING [employer] ? [facility] ? [address] ? [place] [address] ? Patient Name: ?? ELLEN RAMIRES ? MRN: [id number] ? date: 1990 ?Sex: F ?? Assigned Patient Location: [facility] ?? Current Patient Location: [facility] ?? Accession/Order Number: [id number] ?? Exam Date: 08/09/2025 ??10:20 ?Report Date: [...] Dictation Location: RADIO-PC-30 ? Electronically authenticated by: [id number] ??Y ?? Date: 08/09/2025 ??10:47 ? Dictated By: ?Kita Florentino M.D. ? Signed By: ?12/19/25 1050 ? DD/ 1047 ? TD/TT: ? [employer]: Procedure Note Radiology, Radiologist, MD - 08/09/2025 [place] [address] Ultrasound Report Signed Patient: ELLEN RAMIRES JMR#: [id number] : 1990Acct:[id number] Age/Sex: 35 / FADM Date: 08/09/25 Loc: [facility] 250-[address]: Israel Broderick D.O. Ordering Physician: Israel Broderick D.O. Date of Service: 08/09/25 Procedure(s): US OB BPP w non-stress Accession Number(s): [id number] cc: Israel Broderick D.O.; Judy Yepez NP The [address] [address] Patient Name: ELLEN RAMIRES MRN: [id number] date: 1990 Sex: F Assigned Patient Location: [facility] Current Patient Location: [facility] Accession/Order Number: [id number] Exam Date: 08/09/2025 10:20 Report Date: 08/09/2025 [...] Florentino M.D. 08/09/2025 10:47 AM Dictation Location: [place] [address] Electronically authenticated by: [id number] Y Date: 0:47 Dictated By: Kita Florentino M.D. Signed By:08/09/25 1050 DD/ 1047 TD/TT: [employer]: Authorizing ProviderResult TypeResult StatusCorey Davie DOCLINISYNC IMAGINGFinal Result documented in this encounter Visit Diagnoses Not on filedocumented in this encounter Care Teams Team MemberRelationshipSpecialtyStart DateEnd Date Judy Caal PCP - [facility]02/20/24documented as of this encounter
--- OUTSIDE RECORDS SUMMARY | 2025-08-13 10:11 | XMS_ITS | Encounter Summary ---
Author Organization [facility] Address [address] [place] [address] Care Team Providers Care Lead Refiner Name Role Phone Judy Caal Unavailable Unavailable Encounter Details DateTypeDepartmentCare Team (Latest Contact Info)Qqqqzevwibm98/16/2025amboo flowsheet LIANA HEAD [address] [place] [address] Caesar Broderick DO [address] [place] [address] Social History Tobacco UseTypesPacks/DayYears UsedDateSmoking Tobacco: NeverSmokeless Tobacco: NeverAlcohol UseStandard Drinks/WeekCommentsNever0 (1 standard drink = 0.6 oz pure alcohol)PHQ-2AnswerDate RecordedPatient Health Questionnaire-2 Score0 07/30/2025Estimated Date of PsafhgbvThjgbvguPvb00/11/2026ased on last menstrual period of 12/26/2024Sex and Gender InformationValueDate RecordedSex Assigned at BirthNot on fileLegal CyiBdgnyv68/06/2024 9:48 AM EDTGender Identity Not on fileSexual OrientationNot on fileTravel HistoryTravel StartTravel End Bssfqchdniem44documented as of this encounter Plan of Treatment DateTypeDepartmentCare Team (Latest Contact Info)Xxnjtftnfiw96/30/2025 1:20 PM ESTRoutine [facility] [address] [place] [place] [address] Bethany Simon PA [address] [place] [address] 12/16/2025 3:00 PM EDTOffice Visit [facility] [place] [facility] [address] [place] [address] Caesar Broderick DO [address] [place], [facility] documented as of this encounter Visit Diagnoses Not on filedocumented in this encounter Care Teams Team MemberRelationshipSpecialtyStart DateEnd Date Judy Caal PCP - [facility]02/20/24documented as of this encounter
--- OUTSIDE RECORDS SUMMARY | 2025-08-13 10:11 | XMS_ITS | Clinical Summary ---
Author Organization [facility] Address [address] [place] [address] Phone Care Team Providers Care Tobacco Primer Machine Operator Name Role Phone June Trinidad LPN Unavailable Unavailable Allergies No known active allergies Medications MedicationSigDispense QuantityRefillsLast FilledStart DateEnd DateStatus metFORMIN (Glucophage) 500 mg tablet 1 tablet (500 mg).05/22/2024ctive Social History Tobacco UseTypesPacks/DayYears UsedDateSmoking Tobacco: NeverSmokeless Tobacco: Never Tobacco Cessation:Counseling Given: No Alcohol UseStandard Drinks/WeekCommentsNever0 (1 standard drink = 0.6 oz pure alcohol)PHQ-2AnswerDate RecordedPatient Health Questionnaire-2 Seigo400 CommentsUnknownSex and Gender InformationValueDate RecordedSex Assigned at BirthNot on fileLegal GzwKqfpno77/06/2025 12:03 PM ESTGender IdentityNot on fileSexual OrientationNot on file Last Filed Vital Signs Vital SignReadingTime TakenCommentsBlood Mqdfaqjc258/7805 10:52 AM EDT Mpeqz893501/03/2025 10:52 AM WCJKkdscfocnvw97.6 ??C (97.8 ??F)01/03/2025 10:52 AM EDTRespiratory Rate--Oxygen Saturation--Inhaled Oxygen Concentration--Holzev203 kg (268 lb 9.6 oz)01/03/2025 10:52 AM AGWSjnxks477.7 cm (5' 8 )01/03/2025 10:52 AM EDTBody Mass Index40.8401/03/2025 10:52 AM EDT Plan of Treatment Health MaintenanceDue DateLast DoneCommentsHIV Dsqmyvfpq1992Lipid Panel 1992MMR Vaccines (1 of 1 - Standard series)1993Hepatitis C Screening 2010Hepatitis B Vaccines (1 of 3 - 19+ 3-dose series)2011HPV/Cotest 2013DTaP/Tdap/Td Vaccines (1 - Tdap)2014HPV Vaccines (1 - 3-dose standard series)2019COVID-19 Vaccine (1 - season)2025 Influenza Vaccine (#1)2025early Adult Yxcrtknx06/22/807862/ Cervical Cancer Yykfbyuzj20/21/2028Pap Smear804/Zoster Vaccines (1 of 2)2042HIB VaccinesAged OutNo longer eligible based on patient's [...] Ramires TypeRelation to PatientDate of BirthPhone Billing AddressPersonal/OdzmyrNprz1990 [address] [address] Care Teams Team MemberRelationshipSpecialtyStart DateEnd Date June Trinidad LPN Licensed Practical NurseReproductive Endocrinology and Infertility01/01/25
--- OUTSIDE RECORDS SUMMARY | 2025-08-13 10:11 | XMS_ITS | Patient Health Record ---
Author Organization [facility] vices Address [address] [place], [place] [id number] Care Team Providers Care Sales Specialist Name Role Phone Sabiha Aviles Primary Care Provider [phone] Merary Espino Unavailable [phone] Noelle Chris Unavailable [phone] Judy Yepez Unavailable [phone] Allergies No Known Allergies Results Component Value Reference Range Flag Notes UA Culture/Micro if Indicate d Reviewed date:05/30/2025 09:54:53 AM Interpretation: Performing Lab: Notes/Report: [facility] , Color Urine LT YELLOW YELLOW Clarity UrineCLEARCLEARSpecific Dequincy Urine<=1.0051.005-1.025ApH Urine7.0 5.0-9.0Protein UrineNEGATIVENEG/TRACE mg/dLGlucose Urine UANEGATIVENEGATIVE mg/dLBilirubin UrineNEGATIVENEGATIVEKetones UrineNEGATIVENEGATIVE mg/dLBlood UrineNEGATIVENEGATIVENitrite UrineNEGATIVENEGATIVEUrobilinogen Urine0.20.2-1.0 EU/dLLeukocyte Esterase UrineTRACENEGATIVEAUrine Microscopic IndicatedYES Performing Lab:see noteML - [facility] LBUrine Microscopic Reviewed date:05/30/2025 09:54:53 AM Interpretation: Performing Lab: Notes/Report: [facility] ,WBC Urine0-2NONE SEEN #/HPFARBC Urine0-20-2 #/HPFBacteria UrineTRACENONE SEEN #/HPFAMucus UrineNONE SEENNONE SEENSquamous Epithelial Cell UrineFEWNONE/RARE #/LPFACrystals Seen?None SeenNone Seen #/HPFCast Seen?NONE SEENNONE SEEN #/LPF Performing Lab:see noteML - [facility] LBComplete Blood Count Auto Diff Reviewed date:07/04/2025 12:45:54 PM Interpretation: Performing Lab: Notes/Report: [facility] ,White Blood Count17.34.0-11.0 10 3/uLHRed Blood Count3.744.20-5.40 10 6/uLL Mlojktyiwe48.812.0-16.0 g/gOFAqqlrxxsjo69.036.0-48.0 %LMean Corpuscular Volume 93.681.0-99.0 fLNMean Corpuscular Tvesptrscw56.626.7-34.0 pgNMean Corpuscular HGB Conc33.729.9-35.2 g/dLNRed Cell Distribution Width13.111.0-15.0 %NPlatelet Meevk828407-914 10 3/uLNMean Platelet Bvroyb77.49.5-13.5 fLNNeutrophils Percent Auto84.243.0-75.0 %HLymphocytes Percent Auto10.020.5-60.0 %LMonocytes Percent Auto3.01.7-12.0 %NEosinophils Percent Auto1.60.9-7.0 %NBasophils Percent Auto0.2 0.2-2.0 %NImmature Granulocytes Pct Auto1.00.0-0.5 %HNeutrophils Absolute Auto 14.61.4-6.5 10 3/uLHLymphocytes Absolute Auto1.71.2-3.8 10 3/uLNMonocytes Absolute Auto0.50.3-0.8 10 3/uLNEosinophils Absolute Auto0.30.0-0.7 10 3/uLN Basophils Absolute Auto0.00.0-0.1 10 3/uLNImmature Granulocytes Abs Auto0.18 0.00-0.03 10 3/uLHPerforming Lab:see noteML - [facility] LBGlucose 1 Hour Reviewed date:07/04/2025 12:45:54 PM Interpretation: Performing Lab: Notes/Report: [facility] ,Glucose 1 Xzjl878<130 mg/dLHPerforming Lab:see noteML - [facility] LBUS OB BPP w non-stress Reviewed date:07/24/2025 09:24:52 AM Interpretation: Performing Lab: Notes/Report: Source Facility: [facility]-[address] [place] [address] [place] [address] Ultrasound Report Signed Patient: ELLEN RAMIRES MR#: [id number] : 1990 Acct:[id number] Age/Sex: 35 / F ADM Date: 07/23/25 Loc: [facility] 250-[address]: Israel Broderick D.O. Ordering Physician: Israel Broderick D.O. Date of Service: 07/23/25 Procedure(s): US OB BPP w non-stress Accession Number(s): [id number] cc: Israel Broderick D.O.; Judy Yepez NP [place] [address] Patient Name: ELLEN RAMIRES MRN: [id number] date: 1990 Sex: F Assigned Patient Location: [facility] Current Patient Location: [place] Accession/Order Number: [id number] Exam Date: 07/23/2025 10:04 Report Date: 07/23/2025 [...] Florentino M.D. 07/23/2025 10:49 AM Dictation Location: [place] [address] Electronically authenticated by: [id number] Y Date: 07/23/2025 10:49 Dictated By: Kita Florentino M.D. Signed By: 07/23/25 1051 DD/ 1049 TD/TT: Tire Beader Maker:Complete Blood Count Auto Diff Reviewed date:07/07/2025 10:36:45 PM Interpretation: Performing Lab: Notes/Report: [facility] ,White Blood Count15.34.0-11.0 10 3/uLHRed Blood Count3.774.20-5.40 10 6/uLL Boudfifzxe14.712.0-16.0 g/qECIienkefcev20.136.0-48.0 %LMean Corpuscular Volume 93.181.0-99.0 fLNMean Corpuscular Vfdskdmlbu81.026.7-34.0 pgNMean Corpuscular HGB Conc33.329.9-35.2 g/dLNRed Cell Distribution Width13.011.0-15.0 %NPlatelet Tyycm609413-492 10 3/uLNMean Platelet Pisqpn73.59.5-13.5 fLNNeutrophils Percent Auto78.143.0-75.0 %HLymphocytes Percent Auto12.920.5-60.0 %LMonocytes Percent Auto4.61.7-12.0 %NEosinophils Percent Auto2.90.9-7.0 %NBasophils Percent Auto0.3 0.2-2.0 %NImmature Granulocytes Pct Auto1.20.0-0.5 %HNeutrophils Absolute Auto 12.01.4-6.5 10 3/uLHLymphocytes Absolute Auto2.01.2-3.8 10 3/uLNMonocytes Absolute Auto0.70.3-0.8 10 3/uLNEosinophils Absolute Auto0.40.0-0.7 10 3/uLN Basophils Absolute Auto0.00.0-0.1 10 3/uLNImmature Granulocytes Abs Auto0.18 0.00-0.03 10 3/uLHPerforming Lab:see noteML - [facility] LBUS OB BPP w non-stress Reviewed date:07/14/2025 11:11:37 PM Interpretation: Performing Lab: Notes/Report: Source Facility: [facility]-[address] [place] [address] [place] [address] Ultrasound Report Signed Patient: ELLEN RAMIRES MR#: [id number] : 1990 Acct:[id number] Age/Sex: 35 / F ADM Date: 07/12/25 Loc: US Attending Dr: Israel Broderick D.O. Ordering Physician: Israel Broderick D.O. Date of Service: 07/12/25 Procedure(s): US OB BPP w non-stress Accession Number(s): [id number] cc: Israel Broderick D.O.; Judy Yepez [place] [address] Patient Name: ELLEN RAMIRES MRN: [id number] date: 1990 Sex: F Assigned Patient Location: Current Patient Location: [facility] Accession/Order Number: [id number] Exam Date: 07/12/2025 09:56 Report Date: 07/12/2025 14:56 At the request of: ISRAEL BRODERICK DO Procedure: US OB BPP w non-stress Biophysical profile. Reason for exam: History of preeclampsia COMPARISON: None TECHNIQUE: Transabdominal imaging of the gravid uterus was obtained. FINDINGS: The senior informatica developer reports a BPP of 8 out of 8. CHETAN is normal at 12.8 cm. heart rate 159 bpm. US/US OB BPP w non-stress IMPRESSION: BPP 8 out of 8. Impression dictated by: Loraine Martines Jr.OMeghan 07/12/2025 2:56 PM Dictation Location: [place] [address] Electronically authenticated by: [id number] Y Date: 07/12/2025 14:56 Dictated By: Mariusz Malloy M.D. Signed By: 07/12/25 1458 DD/ 1456 TD/TT: Tire Beader Maker:US OB growth Reviewed date:07/19/2025 09:17:12 PM Interpretation: Performing Lab: Notes/Report: Source Facility: [facility]-[address] [place] [address] [place] [address] Ultrasound Report Signed with Addenda Patient: ELLEN RAMIRES MR#: [id number] : 1990 Acct:[id number] Age/Sex: 35 / F ADM Date: 07/12/25 Loc: US Attending Dr: Israel Broderick D.O. Ordering Physician: Israel Broderick D.O. Date of Service: 07/12/25 Procedure(s): US OB growth Accession Number(s): [id number] cc: Israel Broderick D.O.; Judy Yepez CHARTING CLERK ADDENDUM [place] [address] This is an addendum 57th percentile for estimated weight. Impression dictated by: Mariusz Malloy Jr., D.O. 07/17/2025 8:54 AM Dictation Location: [place] [address] Electronically authenticated by: [id number] Y Date: 07/17/2025 08:54 Patient Name: ELLEN RAMIRES MRN: [id number] date: 1990 Sex: F Assigned Patient Location: Current Patient Location: Accession/Order Number: [id number] Exam Date: 07/12/2025 09:56 Report Date: 07/17/2025 08:54 At the request of: ISRAEL BRODERICK DO Procedure: US OB growth [place] [address] Patient Name: ELLEN RAMIRES MRN: [id number] date: 1990 Sex: F Assigned Patient Location: [place] Current Patient Location: [facility] Accession/Order Number: [id number] Exam Date: 07/12/2025 09:56 Report Date: 07/12/2025 [...] Jr., D.O. 07/12/2025 2:57 PM Dictation Location: [place] [address] Electronically authenticated by: [id number] Y Date: 07/12/2025 14:57 Addendum Dictated By: Mariusz Malloy M.D. Addendum Signed By: 07/17/25 0 857 Addendum Cosigned By: DD/ TD/TT: / [place] [address] Patient Name: ELLEN RAMIRES MRN: [id number] date: 1990 Sex: F Assigned Patient Location: Current Patient Location: [facility] Accession/Order Number: [id number] Exam Date: 07/12/2025 09:56 Report Date: 07/12/2025 [...] Jr., D.O. 07/12/2025 2:57 PM Dictation Location: [place] [address] Electronically authenticated by: [id number] Y Date: 07/12/2025 14:57 Dictated By: Mariusz Malloy M.D. Signed By: 07/12/25 1500 DD/ 1457 TD/TT: Tire Beader Maker:US OB BPP w non-stress Reviewed date:08/10/2025 02:34:46 PM Interpretation: Performing Lab: Notes/Report: Source Facility: [place] [address] Ultrasound Report Signed Patient: ELLEN RAMIRES MR#: [id number] : 1990 Acct:[id number] Age/Sex: 35 / F ADM Date: 08/09/25 Loc: [facility] 250-[address]: Israel Broderick D.O. Ordering Physician: Israel Broderick D.O. Date of Service: 08/09/25 Procedure(s): US OB BPP w non-stress Accession Number(s): [id number] cc: Israel Broderick D.O.; Judy Yepez [place] [address] Patient Name: ELLEN RAMIRES MRN: [id number] date: 1990 Sex: F Assigned Patient Location: [facility] Current Patient Location: [facility] Accession/Order Number: [id number] Exam Date: 08/09/2025 10:20 Report Date: 08/09/2025 10:47 At the request of: ISRAEL BRODERICK DO Procedure: US OB BPP w non-stress BIOPHYSICAL PROFILE: CLINICAL INFORMATION: Chronic hypertension affecting O10.919 COMPARISON: 08/02/2025 There is a single live intrauterine gestation in cephalic presentation. The reported gestational age is 32 weeks 2 days. The heart rate measures 150 beats per minute. FINDINGS: TONE: 1 [...] Florentino M.D. 08/09/2025 10:47 AM Dictation Location: [email or web address] Electronically authenticated by: [id number] Y Date: 08/09/2025 10:47 Dictated By: Kita Florentino M.D. Signed By: 08/09/25 1050 DD/ 1047 TD/TT: Tire Beader Maker:Basic Metabolic Panel Reviewed date:06/23/2025 10:27:19 PM Interpretation: Performing Lab: Notes/Report: [facility] ,Iyhozx398703-910 mmol/LNPotassium3.33.5-5.1 mmol/ISAqwznfjs86410-632 mmol/LN Carbon Owualwb59.321.0-32.0 mmol/LNAnion Gap15.0Zyiloqh17523-888 mg/dLHBlood Urea Nitrogen5.07.0-18.0 mg/dLLCreatinine0.570.55-1.02 mg/dLNEstimated GFR ( Claritza>60>=60 mL/min/1.73m 2Estimated GFR (Non- Meghana>60>=60 mL/min/1.73m 2BUN Creatinine Ratio8.9Lrhfzhz7.78.5-10.1 mg/dLNPerforming Lab:see noteML - [facility] LBComplete Blood Count Auto Diff Reviewed date:06/23/2025 10:27:19 PM Interpretation: Performing Lab: Notes/Report: [facility] ,White Blood Count14.64.0-11.0 10 3/uLHRed Blood Count3.694.20-5.40 10 6/uLL Jjwhfilcpg47.512.0-16.0 g/gHIJbnycjkfvp58.236.0-48.0 %LMean Corpuscular Volume 92.781.0-99.0 fLNMean Corpuscular Ibwrlnugzi27.226.7-34.0 pgNMean Corpuscular HGB Conc33.629.9-35.2 g/dLNRed Cell Distribution Width12.911.0-15.0 %NPlatelet Lfqik950220-912 10 3/uLNMean Platelet Fdgodu48.49.5-13.5 fLNNeutrophils Percent Auto74.543.0-75.0 %NLymphocytes Percent Auto15.420.5-60.0 %LMonocytes Percent Auto6.71.7-12.0 %NEosinophils Percent Auto1.90.9-7.0 %NBasophils Percent Auto0.3 0.2-2.0 %NImmature Granulocytes Pct Auto1.20.0-0.5 %HNeutrophils Absolute Auto 10.91.4-6.5 10 3/uLHLymphocytes Absolute Auto2.21.2-3.8 10 3/uLNMonocytes Absolute Auto1.00.3-0.8 10 3/uLHEosinophils Absolute Auto0.30.0-0.7 10 3/uLN Basophils Absolute Auto0.00.0-0.1 10 3/uLNImmature Granulocytes Abs Auto0.18 0.00-0.03 10 3/uLHPerforming Lab:see noteML - [facility] LBUA Culture/Micro if Indicated Reviewed date:06/23/2025 10:27:19 PM Interpretation: Performing Lab: Notes/Report: [facility] ,Color UrineLT. YELLOWYELLOWClarity UrineCLEARCLEARSpecific Dequincy Urine<=1.005 1.005-1.025ApH Urine6.05.0-9.0Protein UrineNEGATIVENEG/TRACE mg/dLGlucose Urine MI195IPYXOZDL mg/dLABilirubin UrineNEGATIVENEGATIVEKetones UrineNEGATIVENEGATIVE mg/dLBlood UrineNEGATIVENEGATIVENitrite UrineNEGATIVENEGATIVEUrobilinogen Urine 0.20.2-1.0 EU/dLLeukocyte Esterase UrineNEGATIVENEGATIVEUrine Microscopic IndicatedNOPerforming Lab:see noteML - [facility] LBUA Micro, reflex to culture Reviewed date:06/23/2025 10:27:35 PM Interpretation: Performing Lab: Notes/Report: , [facility] UrineLT. YELLOWYELLOWClarity UrineCLEARCLEARSpecific Dequincy Urine1.0101.005-1.025pH Urine7.05.0-9.0Protein UrineNEGATIVENEG/TRACE mg/dLGlucose Urine UANEGATIVENEGATIVE mg/dLBilirubin UrineNEGATIVENEGATIVE Ketones UrineNEGATIVENEGATIVE mg/dLBlood UrineNEGATIVENEGATIVENitrite Urine NEGATIVENEGATIVEUrobilinogen Urine0.20.2-1.0 EU/dLLeukocyte Esterase Urine NEGATIVENEGATIVEWBC Urine0-2NONE SEEN #/HPFARBC Urine0-20-2 #/HPFBacteria Urine TRACENONE SEEN #/HPFAMucus UrineNONE SEENNONE SEENSquamous Epithelial Cell Urine FEWNONE/RARE #/LPFACrystals Seen?None SeenNone Seen #/HPFCast Seen?NONE SEENNONE SEEN #/LPFUrine Culture IndicatedNOPerforming Lab:see noteML - [facility] LBECG 12 lead Reviewed date:06/23/2025 10:27:35 PM Interpretation: Performing Lab: Notes/Report: Source Facility: [place] [address] [place] [address] Electrocardiograph Report Signed Patient: ELLEN RAMIRES MR#: [id number] : 1990 Acct:[id number] Age/Sex: 35 / F ADM Date: 06/20/25 Loc: ER Attending Dr: Ordering Physician: Vince Chadwick Date of Service: 06/20/25 Procedure(s): ECG 12 lead Accession Number(s): [id number] cc: [facility] Test Date: 2025-06-20 Pat Name: ELLEN RAMIRES Department: Room: - Gender: Female Orderly: : 1990 Requested By: 1031 Order Number: [id number] Reading MD: RANDOLPH MIXON M.D. Measurements Intervals Waggoner Rate: 79 P: 43 MA: 130 QRS: 39 QRSD: 90 T: 8 QT: 398 QTc: 432 Interpretive Statements 1100 Sinus rhythm 4068 Nonspecific Twave abnormality 9130 borderline ECG No previous ECG available for comparison Electronically Signed On 06-21-2025 6:28:32 EDT by RANDOLPH MIXON M.D. Dictated By: RANDOLPH MIXON Signed By: 06/21/25 0629 DD/ TD/TT: Tire Beader Maker:US OB growth Reviewed date:08/05/2025 07:01:01 AM Interpretation: Performing Lab: Notes/Report: Source Facility: [place] [address] Ultrasound Report Signed Patient: ELLEN RAMIRES MR#: [id number] : 1990 Acct:[id number] Age/Sex: 35 / F ADM Date: 08/02/25 Loc: US Attending Dr: Israel Broderick D.O. Ordering Physician: Israel Broderick D.O. Date of Service: 08/02/25 Procedure(s): US OB growth Accession Number(s): [id number] cc: Israel Broderick D.O.; Judy Yepez [place] [address] Patient Name: ELLEN RAMIRES MRN: [id number] date: 1990 Sex: F Assigned Patient Location: Current Patient Location: Accession/Order Number: [id number] Exam Date: 08/02/2025 10:15 Report Date: 08/02/2025 [...] Gibson M.D. 08/02/2025 4:46 PM Dictation Location: [place] [address] Electronically authenticated by: [id number] Y Date: 08/02/2025 16:46 Dictated By: Raffy Gibson M.D. Signed By: 08/02/251648 DD/ 45 TD/TT: Tire Beader Maker:US OB BPP w non-stress Reviewed date:08/05/2025 07:01:01 AM Interpretation: Performing Lab: Notes/Report: Source Facility: [place] [address] Ultrasound Report Signed Patient: ELLEN RAMIRES MR#: [id number] : 1990 Acct:[id number] Age/Sex: 35 / F ADM Date: 08/02/25 Loc: US Attending Dr: Israel Broderick D.O. Ordering Physician: Israel Broderick D.O. Date of Service: 08/02/25 Procedure(s): US OB BPP w non-stress Accession Number(s): [id number] cc: Israel Broderick D.O.; Judy Yepez NP [place] [address] Patient Name: ELLEN RAMIRES MRN: [id number] date: 1990 Sex: F Assigned Patient Location: US Current Patient Location: Accession/Order Number: [id number] Exam Date: 08/02/2025 10:15 Report Date: 08/02/2025 [...] Gibson M.D. 08/02/2025 4:49 PM Dictation Location: [place] [address] Electronically authenticated by: [id number] Y Date: 08/02/2025 16:49 Dictated By: Raffy Gibson M.D. Signed By: 08/02/252 DD/ 48 TD/TT: Tire Beader Maker:Glucose Tolerance 3 Hour Reviewed date:07/07/2025 10:36:45 PM Interpretation: Performing Lab: Notes/Report: [facility] ,Glucose Tolerance 3 Hour GLU FAST 94 (<95) Col: 07/06/25 0809 GLU 1HR 157 (<180) Col: 07/06/25 0917 GLU 2HR 107 (<155) Col: 07/06/25 1012 GLU 3HR 67 (<140) Col: 07/06/25 1120 Performing Lab:see noteML - [facility] LBTotal Protein 24 Hour Urine Reviewed date:05/26/2025 02:26:35 PM Interpretation: Performing Lab: Notes/Report: , [facility] Protein Urine Random<6.0<=11.9 mg/dLPerforming Lab: see noteML - [facility] LBCreatinine 24 Hour Urine Reviewed date:05/26/2025 02:26:35 PM Interpretation: Performing Lab: Notes/Report: [facility] ,Creatinine Urine Rhzrvu09.4120.00-300.00 mg/dLNTotal Volume 24 Hour Pbybt9235 Creatinine 24 Hour Iehaf7131.69599.00-1800.00 mg/24 hrHPerforming Lab:see noteML - [facility] LBAFP, Serum, Open Spina Bifida Reviewed date:05/26/2025 02:17:58 PM Interpretation: Performing Lab: Notes/Report: , Labmsrp White/ N N N N N 282 1 N 9 2 [id number] LMP N NResultsReport.Test Results:*Screen Negative*.Gest. Age on Collection Date21.1. weeksGestat. Age Based OnLMP. Recalculations are not recommended when gestational dating by LMP and ultrasound are within 10 days. Maternal Age At EDD33.5. yrRaceCaucasian.Gyjegx466. lbsInsulin Dep DiabetesNo. Multiple GestationNo.AFP Value38.2. ng/mLAFP MoM0.85.OSBR Risk 1 TH63256. InterpretationComment. Interpretation: Screen Negative This result is [...] Customer Services to discuss available options. The [employer] recommends amniocentesis be offered to women age 35 and older. Comment:Comment. Gema Ortez, Ph.D., [facility] Director References: Available Upon Request. Multiples Of Median Cutoffs For AFP Elevations Kumar 2.5 Black 2.8 IDD 2.0 Twins 4.5 Abbreviation Definitions IDD - Insulin Dep Diabetes OSBR - Open Spina Bifida Risk For further inquiries contact [facility] at [phone]. This test was developed and its performance characteristics determined by [facility]. It has not been cleared or approved by the Food and Drug Administration. Performed at: - [facility] [address] [facility], [place], [place] [address] Producer Arborist Manager: Jesus Saleh [facility], Phone: [phone] Performing Lab:see noteLC - [facility] LBVITAMIN D 25 HYDROXY Reviewed date:02/08/2025 09:10:44 AM Interpretation: Performing Lab: Notes/Report:VITAMIN D, 25 DGONCRK90.630.0-100.0 ng/mLL 25-OH VITAMIN D INTERPRETATION Deficiency.... <20.0 ng/ml Insufficiency..20.0-29.0 ng/ml Sufficiency....30.0-100.0 ng/ml Possible Toxicity...>150 ng/ml UNLESS OTHERWISE INDICATED, ALL TESTING PERFORMED AT: [facility] [address] [place] [address] GUNCOTTON PACKER: BARBARA DASH M.D. CLIA NUMBER [id number] CAP ACCREDITATION AUID [id number] CBC NO DIFF Reviewed date:02/08/2025 11:13:49 AM Interpretation: Performing Lab: Notes/Report:WBC13.83.6-11.0 THDS/CMMHRBC4.253.80-5.20 MILL/SMQSUF02.311.9-16.0 G/DLHCT40.035-47 %RNK9956-939 fLMCH31.326.0-33.0 qgQOGO51.332.0-35.0 g/dlRDW12.8 11.2-14.8 %KDPDIKYF988022-019 THOUS/CMMCOMPREHENSIVE METABOLIC PANEL WITH GFR Reviewed date:02/08/2025 08:56:14 AM Interpretation: Performing Lab: Notes/Report:ASTJNFY0819-800 mg/nSJCY30-50 mg/dLCALCIUM9.48.6-10.5 mg/dL CREATININE, BLOOD0.710.51-1.15 mg/dLeGFR (2020 CKD-EPI)116>59 mL/min/1.73m2 PMEURJ238918-227 mmol/LPOTASSIUM4.43.5-5.4 mmol/GUSIXDBCD38474-913 mmol/AIP261 18-32 mmol/LANION DKU243-44 mmol/LT. BILIRUBIN0.2<1.3 mg/dLALK PDJC8598-482 U/L WUM-TDAJ989-43 U/DZTZ-YVQI115-78 U/LT. PROTEIN6.56.0-8.3 g/dLALBUMIN4.23.5-5.2 g/dLTSH + FREE T4 PROFILE Reviewed date:02/08/2025 08:56:14 AM Interpretation: Performing Lab: Notes/Report:TSH1.690.270-4.200 uIU/mL The [employer] (HUGO) recommends the following reference ranges for TSH levels during : First trimester: 0.1 to 2.5 mIU/L Second trimester: 0.2 to 3.0 mIU/L Third trimester: 0.3 to 3.0 mIU/L FREE T41.120.80-1.90 ng/dLLIPID PANEL WITH REFLEX TO DIRECT LDL Reviewed date:02/08/2025 11:13:42 AM Interpretation: Performing Lab: Notes/Report:PUZOWBBZTMT514314-343 mg/pCAQQGFMVPSOZZO87553-078 mg/dLHVLDL-CHOL, LKSRRDIQUK52<30 mg/dLHHDL-CHOL45>=50 mg/dLLLDL-CHOL, CBWRJVWEGR21<130 mg/dL ADULT LDL CHOLESTEROL CLASSIFICATION <100mg/dL Optimal [...] risk <7.1 <5.6 high risk >7.1 >5.6 CHOL/HDL3.82.0-4.5Urine Dip Reviewed date:11/12/2024 05:53:24 PM Interpretation: Performing Lab: Notes/Report: Bilirubin-Occult Tvldt-Jyepnat-Mxcnxkw-HTZ-Wyswoyd-Px1.0Protein-Specific Dequincy 1.010ColoryellowAppearanceclearURINALYSIS - REFLEX CULTURE/SENS Reviewed date:11/13/2024 11:59:49 AM Interpretation: Performing Lab: Notes/Report:PH6.55.0-8.0SP GRAVITY1.0061.005-1.030APPEARANCECLEARCLEARCOLOR YELLOWYELLOWPROTEINNEGATIVENEGATIVEGLUCOSENEGATIVENEGATIVEKETONESNEGATIVE NEGATIVEBILIRUBINNEGATIVENEGATIVEOCCULT BLOODNEGATIVENEGATIVELEUKO ESTERNEGATIVE NEGATIVENITRITENEGATIVENEGATIVEUROBILINOGEN0.2<2 mg/dL UNLESS OTHERWISE INDICATED, ALL TESTING PERFORMED AT: [facility] [address] [place] [address] GUNCOTTON PACKER: BARBARA DASH M.D. [place] NUMBER [id number] 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 Stress is when someone feels tense, nervous, anxious, or can't sleep at nightbecause their mind is troubledQuite a bitpatient entered dataIn the past year have you spent more than 2 nights in a row in a retirement, residential, longterm center, orjuvenile correctional facility?Nopatient entered dataAre you [...] rid of a hangover?Nopatient entered dataCAGE- AID Idhwz8UidyadvhuuzlhbXbzcamhlZdkwvgefUplsal:1-2 cups per daypopTobacco Use: Social InfoQuestionAnswerNotesTobacco Use/SmokingTobacco use:nonsmokerpatient entered dataAdditional DetailsCategorySocial InfoOptionsDetailsMiscellaneous: Occupation:works full-timeCulture/Language BarrierNoEducation LevelGrade 7-12 Barriers to LearningNoneLearning PreferenceDoing or practicingHow often do you need to have someone help you read instructionsNeverSafetyPatient feels safe in relationshipsYesDrugs/Alcohol/Caffeine:Do you drink alcohol?No Problems Problem Type SNOMED Code ICD Code Onset Dates Problem Status W/U Status Risk Notes Problem Exercises teaching, guidance, and counseling (744514642) Exercise counseling (Z71.82) ActiveconfirmedProblemMissed period (66096743)Missed period (N92.6)Active confirmedProblemVitamin D deficiency (12213562)Vitamin D deficiency (E55.9) ActiveconfirmedProblemBurning sensation of vagina (finding) (020625670)Vaginal burning (N94.9)ActiveconfirmedProblemAnxiety depression (305091477)Anxiety with depression (F41.8)ActiveconfirmedProblemDietary management surveillance (180583991)Dietary counseling (Z71.3)ActiveconfirmedProblemFemale infertility (8270622)Female fertility problem (N97.9)Activeconfirmed Vital Signs Heart Rate 95 /min 05/21/2025 Robert Shen 05/21/2025 01:17:11 PM EDT > Temperature 98.0 degrees Fahrenheit 05/21/2025 Dayron Banegas 05/21/2025 01:17:11 PM EDT > Respiratory Rate 18 /min 05/21/2025 Dayron Shen 05/21/2025 01:17:11 PM EDT > Blood pressure diastolic 85 mm Hg 05/21/2025 Dayron Nuñez 05/21/2025 01:17:11 PM EDT > Oximetry 99 % 05/21/2025 Robert Shen 05/21/2025 01:17:11 PM EDT > Height-cm 172.72 cm 05/21/2025 Shen, Ser vando 05/21/2025 01:17:11 PM EDT > Weight-kg 128.82 kg 05/21/2025 Shen, Ser vando 05/21/2025 01:17:11 PM EDT > Height 68 in 05/21/2025 Shen, Ser vando 05/21/2025 01:17:11 PM EDT > Blood pressure systolic 141 mm Hg 05/21/2025 Vald ovinos, Dayron 05/21/2025 01:17:11 PM EDT > Weight 284 lbs 05/21/2025 Shen, Ser vando 05/21/2025 01:17:11 PM EDT > BMI 43.18 kg/m2 05/21/2025 Shen, Ser vando 05/21/2025 01:17:11 PM EDT > Encounters Encounter Location Date Provider Diagnosis [address] [id number] 11/06/2024 Sabiha Aviles Depression with anxi ety F41.8 and Hospital discharge follow-up Z09 [address] [id number] 11/12/2024 Sabiha Aviles Dysuria R30.[address] [id number] 12/04/2024 Sabiha Aviles Anxiety with depress ion F41.[address] [id number] 02/05/2025 Sabiha Aviles [facility] examination Z00.00 ; Screening for cardiovascular condition Z13.6 ; Exercise counseling Z71.82 ; Nutritional counseling Z71.3 ; Screening for thyroid disorder Z13.29 and Vitamin D deficiency E55.9 [address] [place], [place] [id number] 05/21/2025 Judy Marleni Anxiety with depress ion F41.8 ; Left otitis media, unspecified otitis media type H66.92 ; 21 weeks gestation of Z3A.21 ; Severe obesity (BMI >= 40) E66.01 and BMI 40.0-44.9, adult Z68.41 [address] [place], [place] [id number] 04/26/2025 Noelle Garciabeka Anxiety with depress ion F41.8 [address] [place] [place] [id number] 06/17/2025 Merary Espino Assessments Encounter Date Diagnosis [...] & PRN Continue following w/ OBGYN for 1 weeks gestation of (ICD-10 - Z3A.21)02/05/2025Exercise counseling [...] Name:Judy Yepez , 08/27/2025 08:15:00 AM, [address] [place], [id number], Insurance Providers Payer Name Payer Address Payer Phone Subscriber Number Group Number Insured Name Patient Relationship to Insured Coverage Start Date Coverage End Date [facility] [address] [place] [address] [id number] Ellen Ramires Self - patient is the insured 3 Medicaid CFC [facility] [address] [place], [place] [id number], Lauren Self - patient is the [id number] 2022 Medical (General) History Medical History History ICD Code anxiety depressionSurgical History Surgery Date(Month/Year) [place] teeth laparoscopy- endometriosis
--- OUTSIDE RECORDS SUMMARY | 2025-08-13 10:11 | XMS_ITS | Clinical Summary ---
Author Organization [employer] [facility] tem Address [id number] [address] [place] [address] Care Team Providers Care Facility Assistant Name Role Phone Services, [facility] [...] the morning.Active Active Problems ProblemNoted DateDiagnosed DateHeart qsyhqufpqmzr50/23/2024Estimated Date of CmxtvhuwNcibkjmuKjh96/11/2026ased on last menstrual period of 12/26/2024 Encounters DateTypeDepartmentCare UwxhNwerzbcoklc80/09/2025 2:00 PM ESTOffice Visit Maternal- Medicine at [address] [address] Yordy Cruz MD Chronic hypertension affecting (Primary Dx); Anxiety disorder affecting , antepartum; Severe obesity due to excess calories affecting , antepartum (CMS-HCC); Acute palmoplantar pustular psoriasis; Depression affecting ; 30 weeks gestation of kzdnzmpem95/09/2025Telephone Maternal- Medicine at [address] [address] Antonina Mcdonough 07/28/20250371Hwimwd17/28/2025 2:00 PM EDTTelemedicine Maternal- Medicine at [address] [address] Yordy Cruz MD Chronic hypertension affecting (Primary Dx); 20 weeks gestation of ; Anxiety disorder affecting , antepartum; Acute palmoplantar pustular psoriasis; Severe obesity due to excess calories affecting , antepartum (CMS-HCC) 06/18/2025 7:48 AM EDT - 06/18/2025 11:59 PM EDTHospital Encounter [facility] [address] [place] [address] Acute palmoplantar pustular psoriasis; Chronic hypertension affecting ; Severe obesity due to excess calories affecting , antepartum (CMS-HCC); Hypertension affecting in second trimester Discharge Disposition: Home06/16/20257102Elxnrt23/03/2025Orders Only Maternal- Medicine at [address] [address] Bethany Lundy LPN Acute palmoplantar pustular psoriasis; Chronic hypertension affecting ; Severe obesity due to excess calories affecting , antepartum (CMS-HCC); Hypertension affecting in second fkocotinl47/03/2025Orders Only Maternal- Medicine at [facility] [address] [place] [address] Bethany Lundy LPN Acute palmoplantar pustular psoriasis (Primary Dx); Chronic hypertension affecting ; Severe obesity due to excess calories affecting , antepartum ([facility]-H[facility]); Hypertension affecting in second hxpnkhnke62/26/2025 9:00 AM EDTOffice Visit Maternal- Medicine at [facility] [address] [place] [address] Clair Hare MD Hamilton, Ira, MD Chronic hypertension affecting (Primary Dx); Acute palmoplantar pustular psoriasis; Severe obesity due to excess calories affecting , antepartum ([facility]-HCC); 20 weeks gestation of exwnledkc40/26/2025 7:12 AM EDT - 05/17/2025 11:59 PM EDT Hospital Encounter [facility] - [facility] [address] [place] [address] Hypertension affecting in second trimester Discharge Disposition: Home05/17/2025Results Follow-Up Maternal- Medicine at [facility] [address] [place] [address] Yordy Cruz MD B-type natriuretic ddlkujb9605/17/2025Orders Only Maternal- Medicine at [facility] [address] [place] [address] Bethany Lundy LPN Acute palmoplantar pustular psoriasis (Primary Dx); Chronic hypertension affecting ; Severe obesity due to excess calories affecting , antepartum ([facility]-HCC); Hypertension affecting in second /24/2025Travelfrom Last 3 Months Family History Medical HistoryRelationNameCommentsEpilepsyBrotherDiabetesFatherHypertension [...] to get more.Never True07/30/2025 Estimated Date of GhlhuxruNfuhhjntMcv34/11/2026ased on last menstrual period of 12/26/2024Sex and Gender InformationValueDate RecordedSex Assigned at BirthNot on fileLegal JlgAdrniq60/09/2023 2:11 PM ESTGender IdentityNot on fileSexual OrientationNot on fileTravel HistoryTravel StartTravel VgdZqlojrvvzibt93/25/2025 07/20/2025 Last Filed Vital Signs Vital SignReadingTime TakenCommentsBlood Wzmvbwuz512/8707/30/2025 1:48 PM EST Azgzx429907/30/2025 1:48 PM HFBLlgcjundwtx18.1 ??C (98.7 ??F)04/29/2025 6:26 PM EDTRespiratory Orya662004/29/2025 6:26 PM EDTOxygen Stndftyukx22%04/29/2025 6:26 PM EDTInhaled Oxygen Concentration--Ioauwz007.9 kg (290 lb 12.8 oz)07/30/2025 1:48 PM QCKXkxgvd121.7 cm (5' 7.99 )05/17/2025 7:51 AM EDTBody Mass Index44.23 05/17/2025 7:51 AM EDT Plan of Treatment DateTypeDepartmentCare Team (Latest Contact Info)Czvjwtjsuxq09/15/2026 2:00 PM ESTTelemedicine Maternal- Medicine at [facility] [address] [place] [address] Yordy Cruz MD [address] [facility] 1st [place] [address] Health MaintenanceDue DateLast DoneCommentsDepression Yudlzsjfc07/29/2004Adult BMI Follow Up Plan2010DTaP,Tdap and Td Vaccines (1 - Tdap)2011 Influenza Esrmjhj6304/22/2025RSV ( or age 60+ yrs) (1 - Risk 1- dose series)08/07/2025dult BMI Uwbmzahuo01Tobacco Screening /04/2025Pap Smear/, 11/23/2022, 11/23/2022, Additional history exists Medical Devices Not on file Procedures Procedure NamePriorityDate/TimeAssociated DiagnosisCommentsUS [facility], 1 TKGGLQvvlixl35/28/2025 9:09 AM EDT 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 Severe obesity due to excess calories affecting , antepartum ([facility]) Hypertension affecting in second trimester B-TYPE NATRIURETIC LAESGLIRzpmdgy80/26/2025 9:54 AM EDT Chronic hypertension affecting 20 weeks gestation of [facility] COMPREHENSIVE ANATOMIC ONJYJYXatlebo77/26/2025 9:10 AM EDT Hypertension affecting in second trimester UNLISTED LAB SVUIFzowesk75/ 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 Severe obesity due to excess calories affecting , antepartum ([facility]) Hypertension affecting in second trimester PAP LWMSSSwrosvo76/04/2023 5:20 AM EDT Encounter for screening for malignant neoplasm of cervix Encounter for screening for human papillomavirus (HPV) from Last 3 Months or Most Recently Relevant to Health Maintenance Results * [facility] OB FOLLOW-[facility], 1 FETUS (06/18/2025 9:09 AM EDT) Only the most recent of2 resultswithin the time period is included. Anatomical RegionLateralityModalityOB-GYNUltrasoundSpecimen (Source)Anatomical Location / LateralityCollection Method / VolumeCollection TimeReceived Time 06/18/2025 8:05 AM EDT Narrative 06/18/2025 9:41 AM EDT NAME: ??PAULA HUGHES : 1990 SEX: F Accession Number: [id number] ORDERING PHYSICIAN: YORDY CRUZ REFERRING PHYSICIAN: ISRAEL LUNA Coding Procedures ? 26277: Ultrasound, uterus, real time with image documentation, follow up,transabdominal ? approach per fetus Indication Screening for follow-up survey, Anxiety , Depression, Obesity in , History of gestationalhypertension, Obesity in , Chronic hypertension affecting . History OB History ? 2. Para 1 ? [id number] Maternal Assessment Physical Exam ??Height 173 cm, [...] (oz) ? 15 oz EFW by: ?Hadlock (KNA-SI-HA-FL) Extended Tibia ??37.8 mm 24w 2d 27% [employer] Room Supervisor ? 4.7 mm CM ? 4.4 mm [...] Thorax RVOT view. LVOT view. 3-vessel view. 0-swnzho-hojpnsk view. ? Right lung. Left lung. Abdomen [...] HUGHES : 1990 SEX: F Accession Number: [id number] ORDERING PHYSICIAN: YORDY CRUZ REFERRING PHYSICIAN: ISRAEL LUNA Coding Procedures 21717: Ultrasound, uterus, real time with image documentation, follow up, transabdominal approach per fetus Indication Screening for follow-up survey, Anxiety , Depression, Obesity in , History of gestational hypertension, Obesity in , Chronic hypertension affecting . History OB History 2. Para 1 [id number] Maternal Assessment Physical Exam Height 173 cm, [...] EFW (oz) 15 oz EFW by: Hadlock (GOE-FH-JK-FL) Extended Tibia 37.8 mm 24w 2d 27% [employer] Room Supervisor 4.7 mm CM 4.4 mm 8% Nicolaides [...] Thorax RVOT view. LVOT view. 3-vessel view. 4-qbrgdk-zqiatrmsdwb. Right lung. Left lung. Abdomen Abdom. wall. [...] as necessary. Authorizing ProviderResult TypeResult Araceli Cruz [facility] [place] ORDERABLES Final Result * B-type natriuretic peptide (05/17/2025 9:54 AM EDT)ComponentValueRef RangeTest MethodAnalysis TimePerformed AtPathologist ZjnnzyshdCHD06<=100 pg/mL05/17/2025 11:13 AM [facility] LABORATORYSpecimen (Source)Anatomical Location / LateralityCollection Method / VolumeCollection TimeReceived Time BloodVenous blood / UnknownVenipuncture / Yamngqd7705/17/2025 9:54 AM EDT 05/17/2025 9:54 AM EDT Narrative Authorizing ProviderResult TypeResult Araceli Cruz [facility] BLOOD ORDERABLES Final ResultPerforming OrganizationAddressCity/State/ZIP CodePhone Number [facility] [address] [place] [address], [place] [phone] * Unlisted Lab Test (05/17/2025)ComponentValueRef RangeTest MethodAnalysis Time Performed AtPathologist SignatureFetal Free Cell Dnalow riskMANUALLY TRANSCRIBED RESULTSSpecimen (Source)Anatomical Location / LateralityCollection Method / VolumeCollection TimeReceived TimeBlood (Arm)05/17/2025 Narrative Authorizing ProviderResult TypeResult [facility] HospitalYord[facility] BLOOD ORDERABLES Final ResultPerforming OrganizationAddressCity/State/ZIP CodePhone Number MANUALLY TRANSCRIBED RESULTS * Pap Smear (11/23/2022 5:20 AM EDT)Specimen (Source)Anatomical Location / LateralityCollection Method / VolumeCollection TimeReceived Time11/23/2022 5:20 AM EDT11/23/2022 5:29 AM EDT Narrative COPATH - 11/24/2022 1:05 PM EDT [facility] ? [address] [facility] ? [place] [address] ? Gynecologic Cytology Consultation ? Patient Name:SANTHOSH RAMIRESJULISSA LockwoodMeghan:1990 (Age: 32)Gender:FTaken:11/23/2022Reported:11/24/2022hysician(s):Bethany Raymundo CNP ([phone])Copy To: Rec. #:[id number]: #[id number] Final Cytologic Interpretation ThinPrep Pap Test (Cervical): Satisfactory for evaluation. A transformation zone component is present. NEGATIVE FOR INTRAEPITHELIAL LESION OR MALIGNANCY. ?? jja/11/24/2022 Interpretation performed at [facility], [address] [place] [address], License number: [id number]. Electronically Signed Out By ?ZORA Walter(ASCP) Date of Last Menstrual Period: ? (None Given) Other Clinical Conditions: Z12.4 Screening for malignant neoplasm of cervix Z11.51 Screening for HPV Source of Specimen ??ThinPrep Pap Test (Cervical) ? Thin Prep Pap (DIRECTOR OF CATEGORY MANAGEMENT) Fee Code(s): ?? G0145 Authorizing ProviderResult TypeResult StatusBethany Raymundo CORN PRESS OPERATOR-DIRECTOR DIVERSITY PATHOLOGY/CYTOLOGY ORDERABLESFinal ResultPerforming OrganizationAddress City/State/ZIP CodePhone Number [facility] from Last 3 Months or Most Recently Relevant to Health Maintenance Insurance * Guarantor: Ellen Ramires TypeRelation to PatientDate of BirthPhone Billing AddressPersonal/SwlyayScxj1990 [address] [address] Care Teams Team MemberRelationshipSpecialtyStart DateEnd Date Services, [facility] [address] [place], [place] PCP - [facility]11/03/24
--- OUTSIDE RECORDS SUMMARY | 2025-08-13 10:11 | XMS_ITS | Encounter Summary ---
Author Organization [facility] Address [address] [facility] [place] [address] Care Team Providers Care Product Development Assistant Name Role Phone Judy Caal Unavailable Unavailable Encounter Details DateTypeDepartmentCare Team (Latest Contact Info)Ynzhhwuihst65/15/2025Travel Social History Tobacco UseTypesPacks/DayYears UsedDateSmoking Tobacco: NeverSmokeless Tobacco: NeverAlcohol UseStandard Drinks/WeekCommentsNever0 (1 standard drink = 0.6 oz pure alcohol)PHQ-2AnswerDate RecordedPatient Health Questionnaire-2 Score0 07/30/2025Estimated Date of MemhixqbRqeavqojDxk22/11/2026ased on last menstrual period of 12/26/2024Sex and Gender InformationValueDate RecordedSex Assigned at BirthNot on fileLegal ZdsAlufqq36/06/2024 9:48 AM EDTGender Identity Not on fileSexual OrientationNot on fileTravel HistoryTravel StartTravel End Tzvdeufnpahf87documented as of this encounter Plan of Treatment DateTypeDepartmentCare Team (Latest Contact Info)Fapguurkgmd24/30/2025 1:20 PM ESTRoutine [facility] [place] [facility] [address] [place] [address] Bethany Simon PA [address] [facility] [address] [place], [place] [id number] 12/16/2025 3:00 PM EDTOffice Visit [facility] [place] [facility] [address] [place] [address] Caesar Broderick, DO [address] [place] [address] [place] [address] documented as of this encounter Visit Diagnoses Not on filedocumented in this encounter Care Teams Team MemberRelationshipSpecialtyStart DateEnd Date Judy Caal PCP - [facility]02/20/24documented as of this encounter
[2025-08-13 10:32] VITALS: BP 90/55; PULSE 81
[2025-08-13 10:47] VITALS: BP 90/53; PULSE 81
[2025-08-13 11:02] VITALS: BP 91/53; PULSE 76
== END 2025-08-13 11:05 | disposition home or self-care (01) ==
LOC: FBCO 10:07 → FBC 10:09
PROVIDERS: Visit Provider Obstetrics & Gynecology
DX: O16.3 Unspecified maternal hypertension, third trimester (principal); Z3A.32 32 weeks gestation of pregnancy
CPT/HCPCS: 59025

== ENCOUNTER 2025-08-16 15:10 | Outpatient (OUT) | payer MEDICAID, SELFPAY ==
--- OUTSIDE RECORDS SUMMARY | 2024-05-14 08:30 | XMS_ITS ---
Author Organization [facility] vices Address [address] [place], [place] [address] Care Team Providers Care Last Dipper Name Role Phone Sabiha Aviles Primary Care Provider REASON FOR VISIT 3 mo Vit D Social History Sex Assigned At : Social History Observation Description Sex Assigned At Female Encounters Encounter Location Date Provider Diagnosis East [address] [place] [id number] 05/14 Sabiha Aviles Plan Of Treatment Next Appt Details Provider Name:Judy Yepez , 08/27/2025 08:15:00 AM, [address] [place], [place], [id number], Progress Notes * Chayo RAMIRESDOB: 2 (35 yo F)Acc No.[id number]:05/14/2024 Medical Note Patient: Trent murphy Chayo Lockwood :?Sabiha AvilesDOB:1990???Age:34 Y???Sex: FemaleDate:05/14/2024hone:[phone]:[address] [facility], [address], [place], [place] Subjective: * Chief Complaints: * 3 mo Vit D * Electronic signature of THEA Ward on 08/16/2025 at 03:13 PM ESTSign off status: Pending * Provider: Jill Aviles Date: 0 05/14/2024 Generated for Printing/Faxing/eTransmitting on:?08/16/2025 03:13 PM EST
--- OUTSIDE RECORDS SUMMARY | 2024-05-24 10:00 | XMS_ITS ---
Author Organization [facility] vices Address [address] [place], [place] [address] Care Team Providers Care Shipfitters Supervisor Name Role Phone Sabiha Aviles Primary Care Provider Noelle Chris Unavailable [phone] REASON FOR VISIT 3 mo Vit D Social History Sex Assigned At : Social History Observation Description Sex Assigned At Female Encounters Encounter Location Date Provider Diagnosis Main [address] [place], [place] [id number] 05/24/2024 Noelle Chris Plan Of Treatment Next Appt Details Provider Name:Judy Yepez , 08/27/2025 08:15:00 AM, [address] [place], [place], [phone], Progress Notes * Chayo RAMIRESDOB: 2 (35 yo F)Acc No.[id number]:05/24/2024 Medical Note Patient: Trent murphy Chayo Lockwood :?DANA PerezCDOB:1990???Age:34 Y???Sex:FemaleDate:05/24/2024hone:[phone]:[address] [facility], [address], [place], [place]Hei:Sabiha Aviles Subjective: * Chief Complaints: * 3 mo Vit D Billing Information: * Procedure Codes: * Electronic signature of FABI Perez on 08/16/2025 at 03:13 PM EST Sign off status: Pending * Provider: FABI Acevedo Date: Generated for Printing/Faxing/eTransmitting on:?08/16/2025 03:13 PM EST
--- OUTSIDE RECORDS SUMMARY | 2024-06-25 10:00 | XMS_ITS ---
Author Organization [facility] vices Address [address] [place], [place] [address] Care Team Providers Care Bin Worker Name Role Phone Sabiha Aviles Primary Care Provider REASON FOR VISIT 3mo. F/U Vit. D. Social History Sex Assigned At : Social History Observation Description Sex Assigned At Female Encounters Encounter Location Date Provider Diagnosis [address] [id number] 06/25 Sabiha Aviles Plan Of Treatment Next Appt Details Provider Name:Judy Yepez , 08/27/2025 08:15:00 AM, [address] [place], [place], [phone], Progress Notes * Chayo RAMIRESDOB: 2 (35 yo F)Acc No.[id number]:06/25/2024 Medical Note Patient: Trent murphy Chayo Lockwood :?Sabiha AvilesDOB:1990???Age:34 Y???Sex: FemaleDate:06/25/2024hone:[phone]:[address] [place] [address], [address] [facility], [place], [place] Subjective: * Chief Complaints: * 3 mo. F/U Vit. D. Billing Information: * Procedure Codes: * Electronic signature of THEA Ward on 08/16/2025 at 03:13 PM ESTSign off status: Pending * Provider: Jill Aviles Date: 08/25/2023 Generated for Printing/Faxing/eTransmitting on:?08/16/2025 03:13 PM EST
--- OUTSIDE RECORDS SUMMARY | 2025-03-05 08:15 | XMS_ITS ---
Author Organization [facility] vices Address [address] [place], [place] [phone] Care Team Providers Care Tape Transferrer Name Role Phone Sabiha Aviles Primary Care Provider REASON FOR VISIT 3m depression, anxiety Social History Sex Assigned At : Social History Observation Description Sex Assigned At Female Encounters Encounter Location Date Provider Diagnosis East [address] [place] [phone] 03/05 Sabiha Aviles Plan Of Treatment Next Appt Details Provider Name:Judy Yepez , 08/27/2025 08:15:00 AM, [address] [place], [place], [phone], Progress Notes * Chayo RAMIRESDOB: 2 (35 yo F)Acc No.[id number]:03/05/2025 Medical Note Patient: Trent murphy Chayo Lockwood :?Sabiha AvilesDOB:1990???Age:34 Y???Sex: FemaleDate:03/05/2025Phone:[phone]:[address] [facility], [address], [place], [phone] Subjective: * Chief Complaints: * 3 m depression, anxiety * Electronic signature of THEA Ward on 08/16/2025 at 03:13 PM ESTSign off status: Pending * Provider: Jill Aviles Date: 0 03/05/2025 Generated for Printing/Faxing/eTransmitting on:?08/16/2025 03:13 PM EST
--- OUTSIDE RECORDS SUMMARY | 2025-05-20 08:15 | XMS_ITS ---
Author Organization [facility] vices Address [address] [place], [place] [address] Care Team Providers Care Retort Condenser Attendant Name Role Phone aSbiha Aviles Primary Care Provider Noelle Chris Unavailable REASON FOR VISIT depression Social History Sex Assigned At : Social History Observation Description Sex Assigned At Female Encounters Encounter Location Date Provider Diagnosis Main [address] [place], [place] [id number] 05/20/2025 Noelle Chris Plan Of Treatment Next Appt Details Provider Name:Judy Yepez , 08/27/2025 08:15:00 AM, [address] [place], [place], [phone], Progress Notes * Chayo RAMIRESDOB: 2 (35 yo F)Acc No.[id number]:05/20/2025 Medical Note Patient: Trent murphy Chayo [place] :?DANA PerezCDOB:1990???Age:35 Y???Sex:FemaleDate:05/20/2025Phone:[phone]:[address] [facility], [address] [facility], [place], [place]Opc:Sabiha Aviles Subjective: * Chief Complaints: * D epression Billing Information: * Procedure Codes: * Electronic signature of FABI Perez on 08/16/2025 at 03:12 PM EST Sign off status: Pending * Provider: FABI Acevedo Date: 0 05/20/2025 Generated for Printing/Faxing/eTransmitting on:?08/16/2025 03:12 PM EST
--- OUTSIDE RECORDS SUMMARY | 2025-08-06 08:40 | XMS_ITS | Encounter Summary ---
Author Organization [facility] Address [address] [place] [address] Care Team Providers Care Underwriting Service Representative Name Role Phone Judy Caal Unavailable Unavailable Reason for Visit * ReasonCommentsRoutine Visit Encounter Details DateTypeDepartmentCare Team (Latest Contact Info)Pgkwqzoucyu72/16/2025 8:40 AM ESTRoutine [facility] [place] [facility] [address] [place] [phone] Caesar Broderick DO [address] [place] [address] 31 weeks gestation of ([facility]); Third trimester ([facility]); H/O pre-eclampsia in prior , currently ([facility]); Vitamin D deficiency Social History Tobacco UseTypesPacks/DayYears UsedDateSmoking Tobacco: NeverSmokeless Tobacco: NeverAlcohol UseStandard Drinks/WeekCommentsNever0 (1 standard drink = 0.6 oz pure alcohol)PHQ-2AnswerDate RecordedPatient Health Questionnaire-2 Score0 07/30/2025Estimated Date of VsgdkkhdCgikohcbBal67/11/2026ased on last menstrual period of 12/26/2024Sex and Gender InformationValueDate RecordedSex Assigned at BirthNot on fileLegal SasSenboa72/06/2024 9:48 AM EDTGender Identity Not on fileSexual OrientationNot on fileTravel HistoryTravel StartTravel End Ybpolpjcnakw08documented as of this encounter Last Filed Vital Signs Vital SignReadingTime TakenCommentsBlood Jhderfst729/6808/06/2025 8:43 AM EST Pulse--Temperature--Respiratory Rate--Oxygen Saturation--Inhaled Oxygen Concentration--Ioeeei245 kg (291 lb 1.9 oz)08/06/2025 8:43 AM [...] am. Do not crush, chew, or split. Refszepu-Usf-Il-FA ( 1 + IRON PO) sertraline (ZOLOFT) 50 mg, Every 24 hours ALLERGIES No Known Allergies PROBLEMS Active Ambulatory Problems Diagnosis Date Noted Fallopian tube disorder 07/30/2024 PCOS (polycystic ovarian syndrome) 07/30/2024 induced hypertension, antepartum ([facility]) 04/25/2025 Vitamin D deficiency 05/23/2025 H/O pre-eclampsia in prior , currently ([facility]) 05/23/2025 Resolved Ambulatory Problems Diagnosis Date Noted [...] nursing note reviewed. Exam conducted with a technical applications specialist present. Vitals: Estimated body mass index is 44.26 kg/m?? as calculated from the following: Height as of 06/11/24: 5' 8 . Weight as of this encounter: 291 lb 1.9 oz. BP: 122/68 Patient's last menstrual period was 12/26/2024. Assessment/Plan ICD-10-CM 1. 31 weeks gestation of ([facility]) Z3A.31 POCT urinalysis dipstick manually resulted 2. Third trimester ([facility]) Z34.93 POCT urinalysis dipstick manually resulted 3. H/O pre-eclampsia in prior , currently ([facility]) O09.299 4. Vitamin D deficiency E55.9 Assessment/Plan [...] Plan of Treatment DateTypeDepartmentCare Team (Latest Contact Info)Llpplacqsyw72/30/2025 1:20 PM ESTRoutine [facility] [address] [place] [phone] Bethany Simon PA [address] [place] [address] 12/16/2025 3:00 PM EDTOffice Visit [facility] [address] [place] [phone] Caesar Broderick DO [address] [place], [place] [phone] documented as of this encounter Procedures Procedure NamePriorityDate/TimeAssociated DiagnosisCommentsPOCT URINALYSIS RQGMIZBKUsuwqcn15/16/2025 8:46 AM EST 31 weeks gestation of ([facility]) Third trimester ([facility]) documented in this encounter Results [...] / LateralityCollection Method / VolumeCollection Time Received GnumUnphf45/16/2025 8:46 AM EST Narrative Authorizing ProviderResult TypeResult StatusCorey Davie DOPOINT OF CARE TEST ENTER/EDIT ORDERABLESFinal Result documented in this encounter Visit Diagnoses Diagnosis 31 weeks gestation of ([facility]) Third trimester ([facility]) state, incidental H/O pre-eclampsia in prior , currently ([facility]) Vitamin D deficiency documented in this encounter Care Teams Team MemberRelationshipSpecialtyStart DateEnd Date Andres Caalyssa PCP - [facility] 02/20/24documented as of this encounter
--- OUTSIDE RECORDS SUMMARY | 2025-08-16 15:13 | XMS_ITS | Encounter Summary ---
Author Organization [facility] Address [address] [facility] [place] [address] Care Team Providers Care Dissolver Operator Name Role Phone Judy Caal Unavailable Unavailable Encounter Details DateTypeDepartmentCare Team (Latest Contact Info)Ytxrepmkymi40/15/2025Travel Social History Tobacco UseTypesPacks/DayYears UsedDateSmoking Tobacco: NeverSmokeless Tobacco: NeverAlcohol UseStandard Drinks/WeekCommentsNever0 (1 standard drink = 0.6 oz pure alcohol)PHQ-2AnswerDate RecordedPatient Health Questionnaire-2 Score0 07/30/2025Estimated Date of UtfgctlzWbjhnltvHnn62/11/2026ased on last menstrual period of 12/26/2024Sex and Gender InformationValueDate RecordedSex Assigned at BirthNot on fileLegal JokDlahwv72/06/2024 9:48 AM EDTGender Identity Not on fileSexual OrientationNot on fileTravel HistoryTravel StartTravel End Dzpkoclbrsls21documented as of this encounter Plan of Treatment DateTypeDepartmentCare Team (Latest Contact Info)Uxyplrifshi33/30/2025 1:20 PM ESTRoutine [facility] [place] [facility] [address] [facility] [place] [address] Bethany Simon PA [address] [facility] [address] [place], [place] [id number] 12/16/2025 3:00 PM EDTOffice Visit [facility] [place] [facility] [address] [address] Caesar Broderick, DO [address] [place] [address] [place] [address] documented as of this encounter Visit Diagnoses Not on filedocumented in this encounter Care Teams Team MemberRelationshipSpecialtyStart DateEnd Date Judy Caal PCP - [facility]02/20/24documented as of this encounter
--- OUTSIDE RECORDS SUMMARY | 2025-08-16 15:13 | XMS_ITS | Encounter Summary ---
Author Organization [facility] Address [address] [place] [address] Care Team Providers Care Retail Stock Clerk Name Role Phone Judy Caal Unavailable Unavailable Encounter Details DateTypeDepartmentCare Team (Latest Contact Info)Nshhosnsvwj39/16/2025bstract [facility] [address] [place] [address] Caesar Broderick DO [address] [facility] [place] [address] Social History Tobacco UseTypesPacks/DayYears UsedDateSmoking Tobacco: NeverSmokeless Tobacco: NeverAlcohol UseStandard Drinks/WeekCommentsNever0 (1 standard drink = 0.6 oz pure alcohol)PHQ-2AnswerDate RecordedPatient Health Questionnaire-2 Score0 07/30/2025Estimated Date of EzbycjrrHoinghrsYnb86/11/2026ased on last menstrual period of 12/26/2024Sex and Gender InformationValueDate RecordedSex Assigned at BirthNot on fileLegal DrjZxljql64/06/2024 9:48 AM EDTGender Identity Not on fileSexual OrientationNot on fileTravel HistoryTravel StartTravel End Fxeosgwsjhxo52documented as of this encounter Plan of Treatment DateTypeDepartmentCare Team (Latest Contact Info)Nfpoupkmiko81/30/2025 1:20 PM ESTRoutine [facility] [address] [place] [address] Bethany Simon PA [address] [facility] [place] [address] 12/16/2025 3:00 PM EDTOffice Visit [facility] [place] [facility] [address] [place] [address] Caesar Broderick DO [address] [facility] [place] [address] documented as of this encounter Visit Diagnoses Not on filedocumented in this encounter Care Teams Team MemberRelationshipSpecialtyStart DateEnd Date Judy Caal PCP - [facility]02/20/24documented as of this encounter
--- OUTSIDE RECORDS SUMMARY | 2025-08-16 15:13 | XMS_ITS | Encounter Summary ---
Author Organization [facility] Address [address] [place] [address] Care Team Providers Care Professional Sports Scout Name Role Phone Judy Caal Unavailable Unavailable Encounter Details DateTypeDepartmentCare Team (Latest Contact Info)Omnosxbcykp32/12/2025linisync Result Encounter [facility] External Department Unsolicited Caesar Broderick DO [address] [facility] [place] [address] Social History Tobacco UseTypesPacks/DayYears UsedDateSmoking Tobacco: NeverSmokeless Tobacco: NeverAlcohol UseStandard Drinks/WeekCommentsNever0 (1 standard drink = 0.6 oz pure alcohol)PHQ-2AnswerDate RecordedPatient Health Questionnaire-2 Score0 07/30/2025Estimated Date of QaevddvqAjknzoyaScp53/11/2026ased on last menstrual period of 12/26/2024Sex and Gender InformationValueDate RecordedSex Assigned at BirthNot on fileLegal AbqDawkto20/06/2024 9:48 AM EDTGender Identity Not on fileSexual OrientationNot on fileTravel HistoryTravel StartTravel End Kojbjnryedzz98documented as of this encounter Plan of Treatment DateTypeDepartmentCare Team (Latest Contact Info)Liwsdhvaidp94/30/2025 1:20 PM ESTRoutine [facility] [place] [facility] [address] [facility] [address] Bethany Simon PA [address] [facility] [place] [address] 12/16/2025 3:00 PM EDTOffice Visit [facility] [place] [facility] [address] [facility] [place] [address] Caesar Broderick, DO [address] [facility] [place] [address] documented as of this encounter Procedures Procedure NamePriorityDate/TimeAssociated DiagnosisCommentsUS OB BPP W NON-TKVPGH9208/02/2025 4:49 PM EST documented in this encounter Results * US OB BPP W NON-STRESS (08/02/2025 4:49 PM EST)Anatomical Region LateralityModalityOtherSpecimen (Source)Anatomical Location / Laterality Collection Method / VolumeCollection TimeReceived Time08/02/2025 4:49 PM EST Narrative 08/02/2025 4:52 PM EST [facility] ?[address] ? [place] [address] ? Ultrasound Report ? Signed ? Patient: ELLEN RAMIRES ?MR#: [id number] ?? : 1990 ?Acct:[id number] ?? Age/Sex: 35 / F ?ADM Date: 08/02/25 ?? Loc: US ? Attending Dr: Caesar Broderick D.O. ? Ordering Physician: Caesar Broderick D.O. ?? Date of Service: 08/02/25 ?? Procedure(s): US OB BPP w non-stress ?? Accession Number(s): [id number] ? cc: Caesar Broderick D.O.; Judy Yepez [employer] ? [facility] ? [address] ? [place] [address] ? Patient Name: ?? ELLENJULISSA RAMIRES ? MRN: [id number] ? date: 1990 ?Sex: F ?? Assigned Patient Location: US ?? Current Patient Location: ? Accession/Order Number: [id number] ?? Exam Date: 08/02/2025 ??10:15 ?Report Date: [...] M.D. ??08/02/2025 4:49 PM ? Dictation Location: [facility]-- ? Electronically authenticated by: [id number] ??Y ?? Date: 08/02/2025 ??16:49 ? Dictated By: ?Raffy Gibson M.D. ? Signed By: ?08/02/25 1652 ? DD/ 1649 ? TD/TT: ? Wire Sawyer: Procedure Note Radiology, Radiologist, - 08/02/2025 [place] [address] Ultrasound Report Signed Patient: ELLEN RAMIRES JMR#: [id number] : 1990Acct:[id number] Age/Sex: 35 / FADM Date: 08/02/25 Loc: US Attending Dr: Caesar Broderick D.O. Ordering Physician: Caesar Broderick D.O. Date of Service: 08/02/25 Procedure(s): US OB BPP w non-stress Accession Number(s): [id number] cc: Caesar Broderick D.O.; Judy Yepez [employer] The [place] [address] Patient Name: ELLEN RAMIRES MRN: [id number] date: 1990 Sex: F Assigned Patient Location: Current Patient Location: Accession/Order Number: [id number] Exam Date: 08/02/2025 10:15 Report Date: 08/02/2025 [...] Gibson M.D. 08/02/2025 4:49 PM Dictation Location: [place] [address] Electronically authenticated by: [id number] Y Date: 6:49 Dictated By: Raffy Gibson M.D. Signed By:08/02/251651 DD/ 48 TD/TT: Wire Sawyer: Authorizing ProviderResult TypeResult StatusCorey Davie DOCLINISYNC IMAGINGFinal Result documented in this encounter Visit Diagnoses Not on filedocumented in this encounter Care Teams Team MemberRelationshipSpecialtyStart DateEnd Date Judy Caal PCP - [facility]02/20/24documented as of this encounter
--- OUTSIDE RECORDS SUMMARY | 2025-08-16 15:13 | XMS_ITS | Encounter Summary ---
Author Organization [facility] Address [address] [place] [address] Care Team Providers Care Hardboard Panel Printer Name Role Phone Judy Caal Unavailable Unavailable Encounter Details DateTypeDepartmentCare Team (Latest Contact Info)Sqptkhcqrxf61/19/2025linisync Result Encounter [facility] External Department Unsolicited Israel Broderick DO [address] [facility] [place] [address] Social History Tobacco UseTypesPacks/DayYears UsedDateSmoking Tobacco: NeverSmokeless Tobacco: NeverAlcohol UseStandard Drinks/WeekCommentsNever0 (1 standard drink = 0.6 oz pure alcohol)PHQ-2AnswerDate RecordedPatient Health Questionnaire-2 Score0 07/30/2025Estimated Date of FlugquaoCfzzdlrvFzr75/11/2026ased on last menstrual period of 12/26/2024Sex and Gender InformationValueDate RecordedSex Assigned at BirthNot on fileLegal SshQqxsgi08/06/2024 9:48 AM EDTGender Identity Not on fileSexual OrientationNot on fileTravel HistoryTravel StartTravel End Jwwlmivcxmei23documented as of this encounter Plan of Treatment DateTypeDepartmentCare Team (Latest Contact Info)Uacmveiobnf93/30/2025 1:20 PM ESTRoutine [facility] [place] [facility] [address] [facility] [place] [address] Bethany Simon PA [address] [facility] [place] [address] 12/16/2025 3:00 PM EDTOffice Visit [facility] [place] [facility] [address] [facility] [place] [phone] Israel Broderick, DO [address] [facility] [place] [address] documented as of this encounter Procedures Procedure NamePriorityDate/TimeAssociated DiagnosisCommentsUS OB BPP W NON-KHUUHK4508/09/2025 10:47 AM EST documented in this encounter Results * US OB BPP W NON-STRESS (08/09/2025 10:47 AM EST)Anatomical Region LateralityModalityOtherSpecimen (Source)Anatomical Location / Laterality Collection Method / VolumeCollection TimeReceived Time08/09/2025 10:47 AM EST Narrative 08/09/2025 10:50 AM EST [facility] ?[address] ? [place] [address] ? Ultrasound Report ? Signed ? Patient: ELLEN RAMIRES ?MR#: [id number] ?? : 1990 ?Acct:[id number] ?? Age/Sex: 35 / F ?ADM Date: 08/09/25 ?? Loc: [facility] ??250-1 ? Attending Dr: Israel Broderick D.O. ? Ordering Physician: Israel Broderick D.O. ?? Date of Service: 08/09/25 ?? Procedure(s): US OB BPP w non-stress ?? Accession Number(s): [id number] ? cc: Israel Broderick D.O.; Judy Yepez CHROME POLISHER ? [facility] ? [address] ? [place] [address] ? Patient Name: ?? ELLEN RAMIRES ? MRN: [id number] ? date: 1990 ?Sex: F ?? Assigned Patient Location: [facility] ?? Current Patient Location: [facility] ?? Accession/Order Number: [id number] ?? Exam Date: 08/09/2025 ??10:20 ?Report Date: [...] Dictation Location: RADIO-PC-30 ? Electronically authenticated by: [id number] ??Y ?? Date: 08/09/2025 ??10:47 ? Dictated By: ?Kita Florentino M.D. ? Signed By: ?12/19/25 1050 ? DD/ 1047 ? TD/TT: ? Package Collector: Procedure Note Radiology, Radiologist, MD - 08/09/2025 [place] [address] Ultrasound Report Signed Patient: ELLEN RAMIRES JMR#: [id number] : 1990Acct:[id number] Age/Sex: 35 / FADM Date: 08/09/25 Loc: [facility] 250-[address]: Israel Broderick D.O. Ordering Physician: Israel Broderick D.O. Date of Service: 08/09/25 Procedure(s): US OB BPP w non-stress Accession Number(s): [id number] cc: Israel Broderick D.O.; Judy Yepez NP The [address] [address] Patient Name: ELLEN RAMIRES MRN: [id number] date: 1990 Sex: F Assigned Patient Location: [facility] Current Patient Location: [facility] Accession/Order Number: [id number] Exam Date: 08/09/2025 10:20 Report Date: 08/09/2025 [...] Florentino M.D. 08/09/2025 10:47 AM Dictation Location: [place] [address] Electronically authenticated by: [id number] Y Date: 0:47 Dictated By: Kita Florentino M.D. Signed By:08/09/25 1050 DD/ 1047 TD/TT: Package Collector: Authorizing ProviderResult TypeResult StatusCorey Davie DOCLINISYNC IMAGINGFinal Result documented in this encounter Visit Diagnoses Not on filedocumented in this encounter Care Teams Team MemberRelationshipSpecialtyStart DateEnd Date Judy Caal PCP - [facility]02/20/24documented as of this encounter
--- OUTSIDE RECORDS SUMMARY | 2025-08-16 15:13 | XMS_ITS | Encounter Summary ---
Author Organization [facility] Address [address] [place] [address] Care Team Providers Care Application Software Engineer Name Role Phone Judy Caal Unavailable Unavailable Encounter Details DateTypeDepartmentCare Team (Latest Contact Info)Qivfqtsuzkr87/12/2025linisync Result Encounter [facility] External Department Unsolicited Israel Broderick DO [address] [facility] [place] [address] Social History Tobacco UseTypesPacks/DayYears UsedDateSmoking Tobacco: NeverSmokeless Tobacco: NeverAlcohol UseStandard Drinks/WeekCommentsNever0 (1 standard drink = 0.6 oz pure alcohol)PHQ-2AnswerDate RecordedPatient Health Questionnaire-2 Score0 07/30/2025Estimated Date of BnqtdyehDhlvrncoFpa44/11/2026ased on last menstrual period of 12/26/2024Sex and Gender InformationValueDate RecordedSex Assigned at BirthNot on fileLegal FgcDwshfg84/06/2024 9:48 AM EDTGender Identity Not on fileSexual OrientationNot on fileTravel HistoryTravel StartTravel End Qkmbbzwkyxkf06documented as of this encounter Plan of Treatment DateTypeDepartmentCare Team (Latest Contact Info)Zpxeholbkkb76/30/2025 1:20 PM ESTRoutine [facility] [place] [facility] [address] [facility] [place] [address] Bethany Simon PA [address] [facility] [place] [address] 12/16/2025 3:00 PM EDTOffice Visit [facility] [place] [facility] [address] [facility] [place] [phone] Israel Broderick, DO [address] [facility] [place] [address] documented as of this encounter Procedures Procedure NamePriorityDate/TimeAssociated DiagnosisCommentsUS OB GROWTH 08/02/2025 4:46 PM EST documented in this encounter Results * US OB GROWTH (08/02/2025 4:46 PM EST)Anatomical RegionLateralityModalityOther Specimen (Source)Anatomical Location / LateralityCollection Method / Volume Collection TimeReceived Time08/02/2025 4:46 PM EST Narrative 08/02/2025 4:49 PM EST [facility] ?[address] ? [place] [address] ? Ultrasound Report ? Signed ? Patient: ELLEN RAMIRES ?MR#: [id number] ?? : 1990 ?Acct:[id number] ?? Age/Sex: 35 / F ?ADM Date: 08/02/25 ?? Loc: [place] ? Attending Dr: Israel Broderick D.O. ? Ordering Physician: Israel Broderick D.O. ?? Date of Service: 08/02/25 ?? Procedure(s): US OB growth ?? Accession Number(s): [id number] ? cc: Israel Broderick D.O.; Judy Yepez SUPERVISOR DISPLAY FABRICATION ? [facility] ? [address] ? [place] [address] ? Patient Name: ?? ELLEN RAMIRES ? MRN: [id number] ? date: 1990 ?Sex: F ?? Assigned Patient Location: [place] ?? Current Patient Location: ? Accession/Order Number: [id number] ?? Exam Date: 08/02/2025 ??10:15 ?Report Date: [...] M.D. ??08/02/2025 4:46 PM ? Dictation Location: [place] [address] ? Electronically authenticated by: [id number] ??Y ?? Date: 08/02/2025 ??16:46 ? Dictated By: ?Raffy Gibson M.D. ? Signed By: ?08/02/25 1649 ? DD/ ? TD/TT: ? Domestic Housekeeper: Procedure Note Radiology, Radiologist, MD - 08/02/2025 [place] [address] Ultrasound Report Signed Patient: ELLEN RAMIRES JMR#: [id number] : 1990Acct:[id number] Age/Sex: 35 / FADM Date: 08/02/25 Loc: [place] Attending Dr: Israel Broderick D.O. Ordering Physician: Israel Broderick D.O. Date of Service: 08/02/25 Procedure(s): US OB growth Accession Number(s): [id number] cc: Israel Broderick D.O.; Judy Yepez NP The [address] [address] Patient Name: ELLEN RAMIRES MRN: [id number] date: 1990 Sex: F Assigned Patient Location: Current Patient Location: Accession/Order Number: [id number] Exam Date: 08/02/2025 10:15 Report Date: 08/02/2025 [...] Gibson M.D. 08/02/2025 4:46 PM Dictation Location: [place] [address] Electronically authenticated by: [id number] Y Date: 6:46 Dictated By: Raffy Gibson M.D. Signed By:08/02/259 DD/ 45 TD/TT: Domestic Housekeeper: Authorizing ProviderResult TypeResult StatusCorenitesh Broderick DOCLINISYNC IMAGINGFinal Result documented in this encounter Visit Diagnoses Not on filedocumented in this encounter Care Teams Team MemberRelationshipSpecialtyStart DateEnd Date Judy Caal PCP - [facility]02/20/24documented as of this encounter
--- OUTSIDE RECORDS SUMMARY | 2025-08-16 15:13 | XMS_ITS | Encounter Summary ---
Author Organization [facility] Address [address] [place] [address] Care Team Providers Care Paper Sorter And Counter Name Role Phone Judy Caal Unavailable Unavailable Encounter Details DateTypeDepartmentCare Team (Latest Contact Info)Ywmzjqrnbyd99/16/2025amboo flowsheet [facility] [address] [place] [address] Caesar Broderick DO [address] [facility] [place] [address] Social History Tobacco UseTypesPacks/DayYears UsedDateSmoking Tobacco: NeverSmokeless Tobacco: NeverAlcohol UseStandard Drinks/WeekCommentsNever0 (1 standard drink = 0.6 oz pure alcohol)PHQ-2AnswerDate RecordedPatient Health Questionnaire-2 Score0 07/30/2025Estimated Date of LrelrmcaKsuiqqukSbh32/11/2026ased on last menstrual period of 12/26/2024Sex and Gender InformationValueDate RecordedSex Assigned at BirthNot on fileLegal VveJokaht98/06/2024 9:48 AM EDTGender Identity Not on fileSexual OrientationNot on fileTravel HistoryTravel StartTravel End Zuwwqyyppsgs12documented as of this encounter Plan of Treatment DateTypeDepartmentCare Team (Latest Contact Info)Azeawncdxms94/30/2025 1:20 PM ESTRoutine [facility] [address] [place] [address] Bethany Simon PA [address] [facility] [place] [address] 12/16/2025 3:00 PM EDTOffice Visit [facility] [place] [facility] [address] [facility] [place] [address] Caesar Broderick DO [address] [facility] [address] [place], [facility] documented as of this encounter Visit Diagnoses Not on filedocumented in this encounter Care Teams Team MemberRelationshipSpecialtyStart DateEnd Date Judy Caal PCP - [facility]02/20/24documented as of this encounter
--- OUTSIDE RECORDS SUMMARY | 2025-08-16 15:13 | XMS_ITS | Clinical Summary ---
Author Organization [facility] Healthcare Address [address] [place] [address] Care Team Providers Care Pbx Supervisor Name Role Phone Judy Caal Unavailable [...] MG 24 hr tablet Indications:Chronic hypertension affecting ([facility])Take 1 tablet (60 mg) by mouth at noon and 1 tablet (60 mg) in the evening. Take 1 tablet in the am. Do not crush, chew, or split. 30 tablet 6Active Hvpetmlk-Tjz-Ci-FA ( 1 + IRON PO) PrenatalActive magnesium oxide (Mag-Ox) 400 mg tablet as directed OrallyActive magnesium oxide (Mag-Ox) 400 MG tablet Take 1 tablet by mouth Daily5Active metFORMIN XR (Glucophage-XR) 500 MG 24 hr tablet 1 (one) time each day at the same time08/06/2025Discontinued Active Problems ProblemNoted DateDiagnosed DateVitamin D ivkbqookfp91/02/2025H/O pre-eclampsia in prior , currently ([facility])05/23/2025Pregnancy induced hypertension, antepartum ([facility])04/25/2025Fallopian tube pitswtwb81/09/2024 PCOS (polycystic ovarian syndrome)07/30/2024Estimated Date of Delivery MxkovrkdKyy83/11/2026ased on last menstrual period of 12/26/2024 Encounters DateTypeDepartmentCare GnjbLgkzxxdules79/19/2025linisync Result Encounter NOMS External Department Unsolicited Israel Broderick, DO 08/06/2025 8:40 AM ESTRoutine [facility] [place] [address] Israel Broderick, DO 31 weeks gestation of ([facility]); Third trimester ([facility]); H/O pre-eclampsia in prior , currently ([facility]); Vitamin D pqiaoiuqha44/16/2025bstract [facility] [place] [address] Israel Broderick, DO 5Bamboo flowsheet [facility] [address] [place] [address] Israel Broderick, DO 08/05/20255005Qawxbr61/12/2025Clinisync Result Encounter NOMS External Department Unsolicited Israel Broderick, DO 08/02/2025linisync Result Encounter NOMS External Department Unsolicited Israel Broderick, DO 07/30/2025Patient Outreach [facility] [address] [place] [address] Bethany Sheehan LPN 07/24/2025 11:20 AM ESTRoutine [facility] [place] [address] Israel Broderick, DO Third trimester ([facility]); 30 weeks gestation of ([facility])07/24/2025amboo flowsheet [facility] [address] [facility] [place] [phone] Israel Broderick, DO 07/23/20254589Xeqsuz98/02/2025Clinisync Result Encounter NOMS External Department Unsolicited Israel Broderick, DO 5Clinisync Result Encounter NOMS External Department Unsolicited Israel Broderick, DO 5Clinisync Result Encounter NOMS External Department Unsolicited Israel Broderick, DO 07/09/2025 1:20 PM ESTRoutine [facility] [place] [address] Bethany Simon, PA 27 weeks gestation of ([facility]); Second trimester ([facility]); H/O pre-eclampsia in prior , currently ([facility]); Vitamin D deficiency; Chronic hypertension affecting ([facility]); BV (bacterial vaginosis)07/09/2025amboo flowsheet [facility] [place] [address] Bethany Simon PA 07/06/2025linisync Result Encounter NOMS External Department Unsolicited Israel Broderick, DO 07/05/2025Telephone [facility] [address] [place] [address] [place] [address] Tsering Willingham MA 07/04/2025linisync Result Encounter NOMS External Department Unsolicited Israel Broderick, DO 07/02/2025Patient Outreach [facility] [address] [place] [address] Bethany Sheehan LPN 06/24/2025 1:50 PM ESTRoutine [facility] [place] [address] Israel Broderick, DO Second trimester ([facility]); 25 weeks gestation of ([facility]); H/O pre-eclampsia in prior , currently ([facility]); Vitamin D deficiency; Chronic hypertension affecting ([facility]); Diabetes mellitus ykmryehga28/03/2025amboo flowsheet [facility] [address] [place] [address] Israel Broderick DO 06/23/20252344Csgurd81/15/2025 8:50 AM EDTRoutine [facility] [address] [place] [address] Rosie Qiu NP Second trimester ([facility]); 23 weeks gestation of ([facility])06/05/2025amboo flowsheet [facility] [address] [place] [address] Rosie Qiu NP 06/04/2025Patient Outreach [facility] [address] [place] [address] Bethany Sheehan LPN 05/31/2025bstract [facility] [address] [place] [address] Bethany Sheehan LPN 05/30/2025 3:20 PM EDTRoutine [facility] [address] [place] [address] Rosie Qiu NP Chronic hypertension affecting ([facility]) (Primary Dx); Second trimester ([facility]); 22 weeks gestation of ([facility])05/30/2025amboo flowsheet [facility] [address] [place] [address] Rosie Qiu NP 05/29/20258695Aeavyg88/07/2025Telephone [facility] [address] [place] [phone] Melanie Almaraz MA 05/23/2025 2:30 PM EDTRoutine [facility] [address] [place] [address] Rosie Qiu, JEM Second trimester ([facility]); 21 weeks gestation of ([facility]); induced hypertension, antepartum ([facility]); Vitamin D deficiency; H/O pre-eclampsia in prior , currently ([facility])05/23/2025 Clinisync Result Encounter NOMS External Department Unsolicited Israel Broderick DO 05/23/2025amboo flowsheet [facility] [address] [place] [address] Rosie Qiu NP 05/22/20257318Kvveeo92/29/2025bstract [facility] [address] [place] [address] Tsering Willingham MA 05/17/2025External Result Encounter [facility] [address] [place] [address] Israel Broderick DO from Last 3 Months [...] 0.6 oz pure alcohol)PHQ-2AnswerDate RecordedPatient Health Questionnaire-2 Jogct84909/30/2024 Estimated Date of IovabrhrPrkxuowgImr51/11/2026ased on last menstrual period of 12/26/2024Sex and Gender InformationValueDate RecordedSex Assigned at BirthNot on fileLegal CjlEcfktt32/06/2024 9:48 AM EDTGender IdentityNot on file Sexual OrientationNot on fileTravel HistoryTravel StartTravel EndPen[place] Last Filed Vital Signs Vital SignReadingTime TakenCommentsBlood Rqufctrs359/6808/06/2025 8:43 AM EST Pulse--Temperature--Respiratory Rate--Oxygen Saturation--Inhaled Oxygen Concentration--Buxstu549 kg (291 lb 1.9 oz)08/06/2025 8:43 AM PEOBfsgmx364.7 cm (5' 8 )06/11/2024 2:39 PM EDTBody Mass Index44.261 2:39 PM EDT Plan of Treatment DateTypeDepartmentCare Team (Latest Contact Info)Heaxuyvbdel29/30/2025 1:20 PM ESTRoutine [facility] [address] [place] [address] [place] [address] Bethany Simon PA [address] [place] [address] 12/16/2025 3:00 PM EDTOffice Visit [facility] [address] [place] [address] Israel Broderick DO [address] [place] [address] Health MaintenanceDue DateLast DoneCommentsInfluenza Vaccine (#1)04/22/2025 HPV/Fzpiur66/8011/23/2022ervical Cancer Aitjtpsju19/21/2028Pap Smear 8012/10/2024, 3Pneumococcal Vaccine: Pediatrics (0 to 5 Years) and At-Risk Patients (6 to 64 Years)Aged OutNo longer eligible based on patient's age to complete this topic Procedures Procedure NamePriorityDate/TimeAssociated DiagnosisCommentsUS OB BPP W NON-JZLXBL0908/09/2025 10:47 AM EST POCT URINALYSIS HFGMDNXVSnjbjyb30/16/2025 8:46 AM EST 31 weeks gestation of ([facility]) Third trimester [facility]) US OB BPP W NON-JUERRQ1008/02/2025 4:49 PM EST US OB EEYPRK1508/02/2025 4:46 PM EST POCT URINALYSIS ZEGDBBOAUppkuwb59/03/2025 11:40 AM EST 30 weeks gestation of ([facility]) US OB BPP W NON-OQNLWU3807/23/2025 10:49 AM EST US OB PCSHYD6507/12/2025 2:57 PM EST US OB BPP W NON-ZYQBEJ6607/12/2025 2:56 PM EST POCT URINALYSIS PNTCZVSPIxfzsax96/18/2025 1:46 PM EST 27 weeks gestation of ([facility]) Second trimester ([facility]) GLUCOSE TOLERANCE 3 DPSTOvcfgyd24/15/2025 8:09 AM EST ALL CBC WITH AUTO LXPTLmnefzi40/15/2025 8:09 AM EST GLUCOSE 1 ICZRCuiowbh35/13/2025 10:25 AM EST ALL CBC WITH AUTO EJKVEolyvva33/13/2025 10:25 AM EST POCT URINALYSIS PEOLZFPDAmddpgw99/03/2025 1:51 PM EST Second trimester ([facility]) POCT URINALYSIS EQQHFMFHHmdraec64/15/2025 9:03 AM EDT Second trimester ([facility]) POCT URINALYSIS UILWNMCXKdwxwky59/09/2025 3:24 PM EDT 22 weeks gestation of ([facility]) AFP, SERUM, OPEN SPINA PNPQVLFwgccva86/02/2025 2:30 PM EDT US OB 14+ WEEKS ANATOMY SCAN05/17/2025 4:39 PM EDT PAP ZJAYMXbarrcw57/21/2025 12:00 AM EDTfrom Last 3 Months or Most Recently Relevant to Health Maintenance Results * US OB BPP W NON-STRESS (08/09/2025 10:47 AM EST) Only the most recent of4 resultswithin the time period is included. Anatomical RegionLateralityModalityOtherSpecimen (Source)Anatomical Location / LateralityCollection Method / VolumeCollection TimeReceived Time08/09/2025 10:47 AM EST Narrative 08/09/2025 10:50 AM EST [facility] ?[address] ? [place] [address] ? Ultrasound Report ? Signed ? Patient: ELLEN RAMIRES ?MR#: [id number] ?? : 1990 ?Acct:[id number] ?? Age/Sex: 35 / F ?ADM Date: 08/09/25 ?? Loc: [facility] ??250-1 ? Attending Dr: Israel Broderick D.O. ? Ordering Physician: Israel Broderick D.O. ?? Date of Service: 08/09/25 ?? Procedure(s): US OB BPP w non-stress ?? Accession Number(s): [id number] ? cc: Israel Broderick D.O.; Judy Yepez CORPORATE INTERN ? [facility] ? [address] ? [place] [address] ? Patient Name: ?? ELLEN RAMIRES ? MRN: [facility]:[id number] ? date: 1990 ?Sex: F ?? Assigned Patient Location: [facility] ?? Current Patient Location: [facility] ?? Accession/Order Number: [id number] ?? Exam Date: 08/09/2025 ??10:20 ?Report Date: [...] Dictation Location: RADIO-PC-30 ? Electronically authenticated by: [id number] ??Y ?? Date: 08/09/2025 ??10:47 ? Dictated By: ?Kita Florentino M.D. ? Signed By: ?08/09/25 1050 ? DD/ 1047 ? TD/TT: ? Equipment Maintenance Tech: Procedure Note Radiology, Radiologist, - 08/09/2025 [place] [address] Ultrasound Report Signed Patient: ELLEN RAMIRES JMR#: [id number] : 1990Acct:[id number] Age/Sex: 35 / FADM Date: 08/09/25 Loc: [facility] 250-[address]: Israel Broderick D.O. Ordering Physician: Israel Broderick D.O. Date of Service: 08/09/25 Procedure(s): US OB BPP w non-stress Accession Number(s): [id number] cc: Israel Broderick D.O.; Judy Yepez NP [place] [phone] Patient Name: ELLEN RAMIRES MRN: [facility]:[id number] date: 1990 Sex: F Assigned Patient Location: [facility] Current Patient Location: [facility] Accession/Order Number: [id number] Exam Date: 08/09/2025 10:20 Report Date: 08/09/2025 [...] Florentino M.D. 08/09/2025 10:47 AM Dictation Location: [place] [address] Electronically authenticated by: [id number] Y Date: 0:47 Dictated By: Kita Florentino M.D. Signed By:08/09/25 1050 DD/ 1047 TD/TT: Equipment Maintenance Tech: Authorizing ProviderResult TypeResult StatusCorey Davie DOCLINISYNC IMAGINGFinal Result * (ABNORMAL) POCT urinalysis [...] Location / LateralityCollection Method / VolumeCollection TimeReceived IatrBobhg86/16/2025 8:46 AM EST Narrative Authorizing ProviderResult TypeResult StatusCorey Davie DOPOINT OF CARE TEST ENTER/EDIT ORDERABLESFinal Result * US OB GROWTH (08/02/2025 4:46 PM EST) Only the most recent of2 resultswithin the time period is included. Anatomical RegionLateralityModalityOtherSpecimen (Source)Anatomical Location / LateralityCollection Method / VolumeCollection TimeReceived Time08/02/2025 4:46 PM EST Narrative 08/02/2025 4:49 PM EST [facility] ?[address] ? [place] [address] ? Ultrasound Report ? Signed ? Patient: ELLEN RAMIRES ?MR#: [id number] ?? : 1990 ?Acct:[id number] ?? Age/Sex: 35 / F ?ADM Date: 08/02/25 ?? Loc: US ? Attending Dr: Israel Broderick D.O. ? Ordering Physician: Israel Broderick D.O. ?? Date of Service: 08/02/25 ?? Procedure(s): US OB growth ?? Accession Number(s): [id number] ? cc: Israel Broderick D.O.; Judy Yepez CORPORATE INTERN ? [facility] ? [address] ? [place] [address] ? Patient Name: ?? ELLEN RAMIRES ? MRN: [facility]:[id number] ? date: 1990 ?Sex: F ?? Assigned Patient Location: US ?? Current Patient Location: ? Accession/Order Number: [id number] ?? Exam Date: 08/02/2025 ??10:15 ?Report Date: [...] M.D. ??08/02/2025 4:46 PM ? Dictation Location: [facility]--23 ? Electronically authenticated by: [id number] ??Y ?? Date: 08/02/2025 ??16:46 ? Dictated By: ?Raffy Gibson M.D. ? Signed By: ?08/02/25 1649 ? DD/ 1646 ? TD/TT: ? Equipment Maintenance Tech: Procedure Note Radiology, Radiologist, MD - 08/02/[address] [address] Ultrasound Report Signed Patient: ELLEN RAMIRES JUAN#: [id number] : 1990Acct:[id number] Age/Sex: 35 / FADM Date: 08/02/25 Loc: US Attending Dr: Israel Broderick D.O. Ordering Physician: Israel Broderick D.O. Date of Service: 08/02/25 Procedure(s): US OB growth Accession Number(s): [id number] cc: Israel Broderick D.O.; Judy Yepez NP [place] [phone] Patient Name: ELLEN RAMIRES MRN: [facility]:[id number] date: 1990 Sex: F Assigned Patient Location: Current Patient Location: Accession/Order Number: [id number] Exam Date: 08/02/2025 10:15 Report Date: 08/02/2025 [...] Gibson M.D. 08/02/2025 4:46 PM Dictation Location: [place] [address] Electronically authenticated by: [id number] Y Date: 6:46 Dictated By: Raffy Gibson M.D. Signed By:08/02/25 1649 DD/ 45 TD/TT: Equipment Maintenance Tech: Authorizing ProviderResult TypeResult StatusCorey Davie DOCLINISYNC [...] 12:14 PM EST Authorizing ProviderResult TypeResult StatusCorey Davieaugust MCNAIR BLOOD ORDERABLES Final ResultPerforming OrganizationAddressCity/State/ZIP CodePhone Number [facility] * (ABNORMAL) ALL CBC WITH AUTO [...] - 35.2 g/dLTBHTBH RDW13.011.0 - 15.0 %TBHTBH MTP884816 - 450 10 3/uLTBHTBH MPV10.59.5 - 13.5 [...] 8:09 AM EST07/06/2025 8:10 AM EST Narrative [facility] - 07/06/2025 8:58 AM EST Authorizing ProviderResult TypeResult StatusCorey Davie DOCLINISYNCFinal Result Performing OrganizationAddressCity/State/ZIP CodePhone Number [facility] * (ABNORMAL) GLUCOSE 1 HOUR (07/04/2025 10:25 AM EST)ComponentValueRef RangeTest MethodAnalysis TimePerformed AtPathologist SignatureGLUCOSE 1 ZMXJ423(H)<130 mg/dLTBHSpecimen (Source)Anatomical Location / LateralityCollection Method / VolumeCollection TimeReceived Time07/04/2025 10:25 AM EST07/04/2025 10:33 AM EST Narrative [facility] - 07/04/2025 11:32 AM EST Authorizing ProviderResult TypeResult StatusCorey Davie DOLAB BLOOD ORDERABLES Final ResultPerforming OrganizationAddressCity/State/ZIP CodePhone Number [facility] * AFP, SERUM, OPEN SPINA BIFIDA (05/23/2025 2:30 PM EDT)ComponentValueRef Range Test MethodAnalysis TimePerformed AtPathologist SignatureRESULTSReport.TBHTEST RESULTS:*Screen Negative*.TBHGEST. AGE ON COLLECTION DATE21.1. weeksTBH GESTAT. AGE BASED ONLMP.TBHComment: Recalculations are not recommended when gestational dating by LMP and ultrasound are within 10 days. MATERNAL AGE AT EDD33.5. yrTBHRACECaucasian.KAXWDENEZ329. lbsTBHINSULIN DEP DIABETESNo.TBHMULTIPLE GESTATIONNo.TBHAFP VALUE38.2. ng/mLTBHAFP MOM0.85.TBHOSBR RISK 1 QS03710.TBHINTERPRETATIONComment.TBHComment: Interpretation: Screen Negative This result is screen [...] Customer Services to discuss available options. ??The [employer] recommends amniocentesis be offered to women age 35 and older. COMMENT:Comment.TBHComment: Gema Ortez, Ph.D., [facility] Director References: Available Upon Request. Multiples Of Median Cutoffs ?For AFP Elevations Kumar ?? 2.5 ? Black ?2.8 IDD ? 2.0 ? Twins ?4.5 ?Abbreviation Definitions IDD - Insulin Dep Diabetes OSBR - Open Spina Bifida Risk For further inquiries contact [employer] [facility] at [phone]. This test was developed and its performance characteristics determined by [facility]. It has not been cleared or approved by the Food and Drug Administration. Performed at: ??[facility] [place], [place] ??[id number] School Based Therapist: Jesus Saleh [facility], Phone: ??[phone] Specimen (Source)Anatomical Location / LateralityCollection Method / Volume Collection TimeReceived Time05/23/2025 2:30 PM EDT1 2:40 PM EDT Narrative [facility] - 05/25/2025 1:07 AM EDT N N LMP [id number] 2 9 N 1 282 N N N N N White/ Authorizing ProviderResult TypeResult StatusIsrael Broderick DOLAB BLOOD ORDERABLES Final ResultPerforming OrganizationAddressCity/State/ZIP CodePhone Number [facility] * US OB 14+ weeks anatomy scan (05/17/2025 4:39 PM EDT)Anatomical Region LateralityModalityBodyUltrasoundSpecimen (Source)Anatomical Location / LateralityCollection Method / VolumeCollection TimeReceived Time05/17/2025 4:39 PM EDT Narrative 05/17/2025 4:39 PM EDT THIS EXAM WAS PERFORMED AT [facility] NAME: ??PAULA HUGHES : 1990 SEX: F Accession Number: [id number] ORDERING PHYSICIAN: ISRAEL BRODERICK REFERRING PHYSICIAN: ISRAEL BRODERICK Coding Procedures ? 64768: Ultrasound, uterus, real time with image documentation, and maternal evaluation ? plus detailed anatomic examination, transabdominal approach;single or first gestation ? 13541: Ultrasound, uterus, real time with image documentation, transvaginal Indication Screening for Anatomic Survey , Screening for cervical length , Anxiety , Depression , Gestational hypertension without significant proteinuria , Obesity in , History of gestational hypertension. History OB History ? 2. Para 1 ? [id number] Maternal Assessment Physical Exam ??Height 173 cm, [...] (oz) ? 13 oz EFW by: ?Hadlock (INE-TB-SY-FL) Extended Tibia ??23.0 mm 18w 1d 2% [...] Heart/Thorax: RVOT view. LVOT view. 3-vessel view. 8-wuwffj-qgosjom view. Situs. Bicaval view. Cardiac position. ? [...] - 05/17/2025 THIS EXAM WAS PERFORMED AT [facility] NAME: PAULA HUGHES : 1990 SEX: F Accession Number: [id number] ORDERING PHYSICIAN: ISRAEL BRODERICK REFERRING PHYSICIAN: ISRAEL BRODERICK Coding Procedures 97911: Ultrasound, uterus, real time with image documentation, and maternal evaluation plus detailed anatomic examination, transabdominalapproach;single or first gestation 68266: Ultrasound, uterus, real time with imagedocumentation, transvaginal Indication Screening for Anatomic Survey , Screening for cervical length , Anxiety , Depression , Gestational hypertension without significant proteinuria , Obesity in , History of gestational hypertension. History OB History 2. Para 1 [id number] Maternal Assessment Physical Exam Height 173 cm, [...] EFW (oz) 13 oz EFW by: Hadlock (FPS-AH-KJ-FL) Extended Tibia 23.0 mm 18w 1d 2% [...] Heart/Thorax: RVOT view. LVOT view. 3-vessel view. 6-rfbljq-quwgrlt view.Situs. Bicaval view. Cardiac position. Cardiac axis. [...] left ovarian cyst noted. Recommendations Please see [facility] documentation from today. The patient is scheduled in four to six week(s) to complete anatomicsurvey. Subsequent follow up or other follow up as clinically determined byprimary OB provider unless otherwise specified by [facility]. Results forwarded to ordering provider [...] Ramires TypeRelation to PatientDate of BirthPhone Billing AddressPersonal/LdghytAfyw1990 [address] [address] Care Teams Team MemberRelationshipSpecialtyStart DateEnd Date Judy Caal PCP - [facility]02/20/24
--- OUTSIDE RECORDS SUMMARY | 2025-08-16 15:14 | XMS_ITS | Clinical Summary ---
Author Organization [facility] tem Address [facility] [id number] [address] [place] [address] Care Team Providers Care Screen Handler Name Role Phone Services, [facility] Primary Care Provider Allergies No known active [...] the morning.Active Active Problems ProblemNoted DateDiagnosed DateHeart vpyqkufvdkin06/23/2024Estimated Date of UumczusxBrzksjdcSeb13/11/2026ased on last menstrual period of 12/26/2024 Encounters DateTypeDepartmentCare OtcgJadstrcwpcn10/09/2025 2:00 PM ESTOffice Visit Maternal- Medicine at [address] [address] Yordy Cruz MD Chronic hypertension affecting (Primary Dx); Anxiety disorder affecting , antepartum; Severe obesity due to excess calories affecting , antepartum (CMS-HCC); Acute palmoplantar pustular psoriasis; Depression affecting ; 30 weeks gestation of gqdkxhbyv39/09/2025Telephone Maternal- Medicine at [address] [address] Antonina Mcdonough 07/28/20257421Vnmtlu86/28/2025 2:00 PM EDTTelemedicine Maternal- Medicine at [address] [address] Yordy Cruz MD Chronic hypertension affecting (Primary Dx); 20 weeks gestation of ; Anxiety disorder affecting , antepartum; Acute palmoplantar pustular psoriasis; Severe obesity due to excess calories affecting , antepartum (CMS-HCC) 06/18/2025 7:48 AM EDT - 06/18/2025 11:59 PM EDTHospital Encounter [facility] [address] [place] [address] Acute palmoplantar pustular psoriasis; Chronic hypertension affecting ; Severe obesity due to excess calories affecting , antepartum (CMS-HCC); Hypertension affecting in second trimester Discharge Disposition: Home06/16/20254962Wtdfqn00/03/2025Orders Only Maternal- Medicine at [address] [address] Bethany Lundy LPN Acute palmoplantar pustular psoriasis; Chronic hypertension affecting ; Severe obesity due to excess calories affecting , antepartum (CMS-HCC); Hypertension affecting in second vsythtaeg51/03/2025Orders Only Maternal- Medicine at [facility] [address] [place] [address] Bethany Lundy LPN Acute palmoplantar pustular psoriasis (Primary Dx); Chronic hypertension affecting ; Severe obesity due to excess calories affecting , antepartum ([facility]-HCC); Hypertension affecting in second nmvbtetdp39/26/2025 9:00 AM EDTOffice Visit Maternal- Medicine at [facility] [address] [place] [address] Clair Hare MD Hamilton, Ira, MD Chronic hypertension affecting (Primary Dx); Acute palmoplantar pustular psoriasis; Severe obesity due to excess calories affecting , antepartum ([facility]-HCC); 20 weeks gestation of /26/2025 7:12 AM EDT - 05/17/2025 11:59 PM EDT Hospital Encounter [facility] [address] [place] [phone] Hypertension affecting in second trimester Discharge Disposition: Home05/17/2025Results Follow-Up Maternal- Medicine at [facility] [address] [place] [address] Yordy Cruz MD B-type natriuretic nklzznf6105/17/2025Orders Only Maternal- Medicine at [facility] [address] [place] [address] Bethany Lundy LPN Acute palmoplantar pustular psoriasis (Primary Dx); Chronic hypertension affecting ; Severe obesity due to excess calories affecting , antepartum ([facility]-HCC); Hypertension affecting in second trimesterfrom Last 3 Months Family History Medical HistoryRelationNameCommentsEpilepsyBrotherDiabetesFatherHypertension [...] to get more.Never True07/30/2025 Estimated Date of TkejyhihKznjxpwuVyv90/11/2026ased on last menstrual period of 12/26/2024Sex and Gender InformationValueDate RecordedSex Assigned at BirthNot on fileLegal AvmCvdqme14/09/2023 2:11 PM ESTGender IdentityNot on fileSexual OrientationNot on fileTravel HistoryTravel StartTravel HepAtffybbuzubc72/25/2025 07/20/2025 Last Filed Vital Signs Vital SignReadingTime TakenCommentsBlood Ttgnxmsc255/8707/30/2025 1:48 PM EST Jgkhb037607/30/2025 1:48 PM AIYUnipruufufm53.1 ??C (98.7 ??F)04/29/2025 6:26 PM EDTRespiratory Cpyh054904/29/2025 6:26 PM EDTOxygen Ecmdqcqzzw68%04/29/2025 6:26 PM EDTInhaled Oxygen Concentration--Ngrhji509.9 kg (290 lb 12.8 oz)07/30/2025 1:48 PM QICSaersz317.7 cm (5' 7.99 )05/17/2025 7:51 AM EDTBody Mass Index44.23 05/17/2025 7:51 AM EDT Plan of Treatment DateTypeDepartmentCare Team (Latest Contact Info)Gqqxstlouby48/15/2026 2:00 PM ESTTelemedicine Maternal- Medicine at [facility] [address] [place] [phone] Yordy Cruz MD [address] [facility] [address] [place] [address] Health MaintenanceDue DateLast DoneCommentsDepression Ucauqdmbp74/29/2004Adult BMI Follow Up Plan2010DTaP,Tdap and Td Vaccines (1 - Tdap)2011 Influenza Zhstdzx4904/22/2025RSV ( or age 60+ yrs) (1 - Risk 1- dose series)08/07/2025dult BMI Ulqhvlfkm83/04/2025Tobacco Screening /04/2025Pap Smear/, 11/23/2022, 11/23/2022, Additional history exists Medical Devices Not on file Procedures Procedure NamePriorityDate/TimeAssociated DiagnosisCommentsUS [facility] LJULHWsdzkcm32/28/2025 9:09 AM EDT 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 Severe obesity due to excess calories affecting , antepartum ([facility]-HCC) Hypertension affecting in second trimester B-TYPE NATRIURETIC RCLIEUXBwdiytu86/26/2025 9:54 AM EDT Chronic hypertension affecting 20 weeks gestation of [facility] COMPREHENSIVE ANATOMIC YVKDVZNczxtiy40/26/2025 9:10 AM EDT Hypertension affecting in second trimester UNLISTED LAB STHTUrorjtd22/26/2025 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 Severe obesity due to excess calories affecting , antepartum ([facility]-HCC) Hypertension affecting in second trimester PAP DMYGFDvvdymp07/04/2023 5:20 AM EDT Encounter for screening for malignant neoplasm of cervix Encounter for screening for human papillomavirus (HPV) from Last 3 Months or Most Recently Relevant to Health Maintenance Results * [facility] OB FOLLOW-UP, 1 FETUS (06/18/2025 9:09 AM EDT) Only the most recent of2 resultswithin the time period is included. Anatomical RegionLateralityModalityOB-GYNUltrasoundSpecimen (Source)Anatomical Location / LateralityCollection Method / VolumeCollection TimeReceived Time 06/18/2025 8:05 AM EDT Narrative 06/18/2025 9:41 AM EDT NAME: ??PAULA HUGHES : 1990 SEX: F Accession Number: [id number] ORDERING PHYSICIAN: YORDY CRUZ REFERRING PHYSICIAN: ISRAEL LUNA Coding Procedures ? 39817: Ultrasound, uterus, real time with image documentation, follow up,transabdominal ? approach per fetus Indication Screening for follow-up survey, Anxiety , Depression, Obesity in , History of gestationalhypertension, Obesity in , Chronic hypertension affecting . History OB History ? 2. Para 1 ? [id number] Maternal Assessment Physical Exam ??Height 173 cm, [...] (oz) ? 15 oz EFW by: ?Hadlock (IQX-ZB-BM-FL) Extended Tibia ??37.8 mm 24w 2d 27% Gavino Green End Man ? 4.7 mm CM ? 4.4 mm [...] Thorax RVOT view. LVOT view. 3-vessel view. 6-ncvzmc-mzygdxs view. ? Right lung. Left lung. Abdomen [...] HUGHES : 1990 SEX: F Accession Number: [id number] ORDERING PHYSICIAN: YORDY CRUZ REFERRING PHYSICIAN: ISRAEL LUNA Coding Procedures 73707: Ultrasound, uterus, real time with image documentation, follow up, transabdominal approach per fetus Indication Screening for follow-up survey, Anxiety , Depression, Obesity in , History of gestational hypertension, Obesity in , Chronic hypertension affecting . History OB History 2. Para 1 [id number] Maternal Assessment Physical Exam Height 173 cm, [...] EFW (oz) 15 oz EFW by: Hadlock (DDT-RP-ZS-FL) Extended Tibia 37.8 mm 24w 2d 27% Gavino Green End Man 4.7 mm CM 4.4 mm 8% Nicolaides [...] Thorax RVOT view. LVOT view. 3-vessel view. 3-rjyfwh-znewjejnofs. Right lung. Left lung. Abdomen Abdom. wall. [...] as necessary. Authorizing ProviderResult TypeResult Araceli Cruz [facility]ALL[facility] [place] ORDER[facility]LES Final Result * B-type natriuretic peptide (05/17/2025 9:54 AM EDT)ComponentValueRef RangeTest MethodAnalysis TimePerformed AtPathologist KsnkcptoyBHW90<=100 pg/mL05/17/2025 11:13 AM EDCLEVEL[facility] LABORATORYSpecimen (Source)Anatomical Location / LateralityCollection Method / VolumeCollection TimeReceived Time BloodVenous blood / UnknownVenipuncture / Atddneu6005/17/2025 9:54 AM EDT 05/17/2025 9:54 AM EDT Narrative Authorizing ProviderResult TypeResult Araceli Cruz [facility] BLOOD ORDERABLES Final ResultPerforming OrganizationAddressCity/State/ZIP CodePhone Number [facility] [address] [place] [address], [place] [phone] * Unlisted Lab Test (05/17/2025)ComponentValueRef RangeTest MethodAnalysis Time Performed AtPathologist SignatureFetal Free Cell Dnalow riskMANUALLY TRANSCRIBED RESULTSSpecimen (Source)Anatomical Location / LateralityCollection Method / VolumeCollection TimeReceived TimeBlood (Arm)05/17/2025 Narrative Authorizing ProviderResult TypeResult Araceli Cruz MDOSAWATOMIE STATE [facility] BLOOD ORDERABLES Final ResultPerforming OrganizationAddressCity/State/ZIP CodePhone Number MANUALLY TRANSCRIBED RESULTS * Pap Smear (11/23/2022 5:20 AM EDT)Specimen (Source)Anatomical Location / LateralityCollection Method / VolumeCollection TimeReceived Time11/23/2022 5:20 AM EDT11/23/2022 5:29 AM EDT Narrative COPATH - 11/24/2022 1:05 PM EDT [facility] ? [address] ? [place], [place] [address] ? Gynecologic Cytology Consultation ? Patient Name:SANTHOSH RAMIRESJULISSA LockwoodMeghan:1990 (Age: 32)Gender:FTaken:11/23/2022Reported:11/24/2022hysician(s):Bethany Raymundo CNP ([phone])Copy To: Rec. #:[id number]: #[id number] Final Cytologic Interpretation ThinPrep Pap Test (Cervical): Satisfactory for evaluation. A transformation zone component is present. NEGATIVE FOR INTRAEPITHELIAL LESION OR MALIGNANCY. ?? jja/11/24/2022 Interpretation performed at [facility], [address] [place] [address], License number: [id number]. Electronically Signed Out By ?ZORA Walter(ASCP) Date of Last Menstrual Period: ? (None Given) Other Clinical Conditions: Z12.4 Screening for malignant neoplasm of cervix Z11.51 Screening for HPV Source of Specimen ??ThinPrep Pap Test (Cervical) ? Thin Prep Pap ([employer] [employer]) Fee Code(s): ?? G0145 Authorizing ProviderResult TypeResult StatusBethany Raymundo HIDE AND SKIN COLERER-FILE CLERK PATHOLOGY/CYTOLOGY ORDERABLESFinal ResultPerforming OrganizationAddress City/State/ZIP CodePhone Number COPATH from Last 3 Months or Most Recently Relevant to Health Maintenance Insurance Care Teams Team MemberRelationshipSpecialtyStart DateEnd Date Services, [facility] [address] [place], [place] PCP - GeneralFamily Medicine11/03/24
--- OUTSIDE RECORDS SUMMARY | 2025-08-16 15:14 | XMS_ITS | Clinical Summary ---
Author Organization [facility] Address [address] [place] [address] Phone Care Team Providers Care Denture Model Maker Name Role Phone June Trinidad LPN Unavailable Unavailable Allergies No known active allergies Medications MedicationSigDispense QuantityRefillsLast FilledStart DateEnd DateStatus metFORMIN (Glucophage) 500 mg tablet 1 tablet (500 mg).05/22/2024ctive Social History Tobacco UseTypesPacks/DayYears UsedDateSmoking Tobacco: NeverSmokeless Tobacco: Never Tobacco Cessation:Counseling Given: No Alcohol UseStandard Drinks/WeekCommentsNever0 (1 standard drink = 0.6 oz pure alcohol)PHQ-2AnswerDate RecordedPatient Health Questionnaire-2 Svkfr275 CommentsUnknownSex and Gender InformationValueDate RecordedSex Assigned at BirthNot on fileLegal JkyVakoox52/06/2025 12:03 PM ESTGender IdentityNot on fileSexual OrientationNot on file Last Filed Vital Signs Vital SignReadingTime TakenCommentsBlood Nmvjlgkt252/7805 10:52 AM EDT Dmild228301/03/2025 10:52 AM UWFEehjavqvifd57.6 ??C (97.8 ??F)01/03/2025 10:52 AM EDTRespiratory Rate--Oxygen Saturation--Inhaled Oxygen Concentration--Maaghe552 kg (268 lb 9.6 oz)01/03/2025 10:52 AM BGSQjthci357.7 cm (5' 8 )01/03/2025 10:52 AM EDTBody Mass Index40.8401/03/2025 10:52 AM EDT Plan of Treatment Health MaintenanceDue DateLast DoneCommentsHIV Xkcstajnm1992Lipid Panel 1990MMR Vaccines (1 of 1 - Standard series)1993Hepatitis C Screening 2010Hepatitis B Vaccines (1 of 3 - 19+ 3-dose series)2011HPV/Cotest 2013DTaP/Tdap/Td Vaccines (1 - Tdap)2014HPV Vaccines (1 - 3-dose standard series)2019COVID-19 Vaccine (1 - season)2025 Influenza Vaccine (#1)2025early Adult Igirehgl71/22/653478/ Cervical Cancer Boyvpyxdx59/21/2028Pap Smear804/Zoster Vaccines (1 of 2)2042HIB VaccinesAged OutNo [...] Ramires TypeRelation to PatientDate of BirthPhone Billing AddressPersonal/TfgxamFxms1990 [address] [address] Care Teams Team MemberRelationshipSpecialtyStart DateEnd Date June Trinidad LPN Licensed Practical NurseReproductive Endocrinology and Infertility01/01/25
--- OUTSIDE RECORDS SUMMARY | 2025-08-16 15:14 | XMS_ITS | Patient Health Record ---
Author Organization [facility] vices Address [address] [place], [place] [address] Care Team Providers Care Curam Developer Name Role Phone Sabiha Aviles Primary Care Provider [phone] Merary Espino Unavailable [phone] Noelle Chris Unavailable [phone] Judy Yepez Unavailable [phone] Allergies No Known Allergies Results Component Value Reference Range Flag Notes Glucose 1 Hour Reviewed date:07/04/2025 12:45:54 PM Interpretation: Performing Lab: Notes/Report: [facility] , Glucose 1 Hour 159 <130 mg/dL H Performing Lab:see noteML - [facility] LBUS OB BPP w non-stress Reviewed date:07/24/2025 09:24:52 AM Interpretation: Performing Lab: Notes/Report: Source Facility: [place] [address] [place] [address] Ultrasound Report Signed Patient: ELLEN RAMIRES MR#: [id number] : 1990 Acct:[id number] Age/Sex: 35 / F ADM Date: 07/23/25 Loc: [facility] 250-[address]: Israel Broderick D.O. Ordering Physician: Israel Broderick D.O. Date of Service: 07/23/25 Procedure(s): US OB BPP w non-stress Accession Number(s): [id number] cc: Israel Broderick D.O.; Judy Yepez [place] [address] Patient Name: ELLEN RAMIRES MRN: [id number] date: 1990 Sex: F Assigned Patient Location: [facility] Current Patient Location: US Accession/Order Number: [id number] Exam Date: 07/23/2025 10:04 Report Date: 07/23/2025 [...] Florentino M.D. 07/23/2025 10:49 AM Dictation Location: [place] [address] Electronically authenticated by: [id number] Y Date: 07/23/2025 10:49 Dictated By: Kita Florentino M.D. Signed By: 07/23/25 1051 DD/ 1049 TD/TT: Practice Advisor:Complete Blood Count Auto Diff Reviewed date:07/07/2025 10:36:45 PM Interpretation: Performing Lab: Notes/Report: [facility] ,White Blood Count15.34.0-11.0 10 3/uLHRed Blood Count3.774.20-5.40 10 6/uLL Ymwhnaqdrk49.712.0-16.0 g/mQLWrpjqzhmte50.136.0-48.0 %LMean Corpuscular Volume 93.181.0-99.0 fLNMean Corpuscular Cjivscrmrq75.026.7-34.0 pgNMean Corpuscular HGB Conc33.329.9-35.2 g/dLNRed Cell Distribution Width13.011.0-15.0 %NPlatelet Tjdwn071269-998 10 3/uLNMean Platelet Ooqkka57.59.5-13.5 fLNNeutrophils Percent Auto78.143.0-75.0 %HLymphocytes Percent Auto12.920.5-60.0 %LMonocytes Percent Auto4.61.7-12.0 %NEosinophils Percent Auto2.90.9-7.0 %NBasophils Percent Auto0.3 0.2-2.0 %NImmature Granulocytes Pct Auto1.20.0-0.5 %HNeutrophils Absolute Auto 12.01.4-6.5 10 3/uLHLymphocytes Absolute Auto2.01.2-3.8 10 3/uLNMonocytes Absolute Auto0.70.3-0.8 10 3/uLNEosinophils Absolute Auto0.40.0-0.7 10 3/uLN Basophils Absolute Auto0.00.0-0.1 10 3/uLNImmature Granulocytes Abs Auto0.18 0.00-0.03 10 3/uLHPerforming Lab:see noteML - [facility] LBComplete Blood Count Auto Diff Reviewed date:07/04/2025 12:45:54 PM Interpretation: Performing Lab: Notes/Report: [facility] ,White Blood Count17.34.0-11.0 10 3/uLHRed Blood Count3.744.20-5.40 10 6/uLL Iusrxjoabn76.812.0-16.0 g/hSARacmkjgxqu58.036.0-48.0 %LMean Corpuscular Volume 93.681.0-99.0 fLNMean Corpuscular Shgscwduqj96.626.7-34.0 pgNMean Corpuscular HGB Conc33.729.9-35.2 g/dLNRed Cell Distribution Width13.111.0-15.0 %NPlatelet Qooth032837-036 10 3/uLNMean Platelet Bdzezh21.49.5-13.5 fLNNeutrophils Percent Auto84.243.0-75.0 %HLymphocytes Percent Auto10.020.5-60.0 %LMonocytes Percent Auto3.01.7-12.0 %NEosinophils Percent Auto1.60.9-7.0 %NBasophils Percent Auto0.2 0.2-2.0 %NImmature Granulocytes Pct Auto1.00.0-0.5 %HNeutrophils Absolute Auto 14.61.4-6.5 10 3/uLHLymphocytes Absolute Auto1.71.2-3.8 10 3/uLNMonocytes Absolute Auto0.50.3-0.8 10 3/uLNEosinophils Absolute Auto0.30.0-0.7 10 3/uLN Basophils Absolute Auto0.00.0-0.1 10 3/uLNImmature Granulocytes Abs Auto0.18 0.00-0.03 10 3/uLHPerforming Lab:see noteML - [facility] LBUS OB BPP w non-stress Reviewed date:08/10/2025 02:34:46 PM Interpretation: Performing Lab: Notes/Report: Source Facility: [place] [address] Ultrasound Report Signed Patient: ELLEN RAMIRES MR#: [id number] : 1990 Acct:[id number] Age/Sex: 35 / F ADM Date: 08/09/25 Loc: [facility] 250-[address]: Israel Broderick D.O. Ordering Physician: Israel Broderick D.O. Date of Service: 08/09/25 Procedure(s): OB BPP w non-stress Accession Number(s): [id number] cc: Israel Broderick D.O.; Judy Yepez [place] [address] Patient Name: ELLEN RAMIRES MRN: [id number] date: 1990 Sex: F Assigned Patient Location: [facility] Current Patient Location: [facility] Accession/Order Number: [id number] Exam Date: 08/09/2025 10:20 Report Date: 08/09/2025 [...] Florentino M.D. 08/09/2025 10:47 AM Dictation Location: [place] [address] Electronically authenticated by: [id number] Y Date: 08/09/2025 10:47 Dictated By: Kita Florentino M.D. Signed By: 08/09/25 1050 DD/ 1047 TD/TT: Practice Advisor:Glucose Tolerance 3 Hour Reviewed date:07/07/2025 10:36:45 PM Interpretation: Performing Lab: Notes/Report: [facility] ,Glucose Tolerance 3 Hour GLU FAST 94 (<95) Col: 07/06/25 0809 GLU 1HR 157 (<180) Col: 07/06/25 0917 GLU 2HR 107 (<155) Col: 07/06/25 1012 GLU 3HR 67 (<140) Col: 07/06/25 1120 Performing Lab:see noteML - [facility] LBECG 12 lead Reviewed date:06/23/2025 10:27:35 PM Interpretation: Performing Lab: Notes/Report: Source Facility: [facility]-[address] [place] [address] [place] [address] Electrocardiograph Report Signed Patient: ELLEN RAMIRES MR#: [id number] : 1990 Acct:[id number] Age/Sex: 35 / F ADM Date: 06/20/25 Loc: ER Attending Dr: Ordering Physician: Vince Chadwick Date of Service: 06/20/25 Procedure(s): ECG 12 lead Accession Number(s): [id number] cc: [facility] Test Date: 2025-06-20 Pat Name: ELLEN RAMIRES Department: Room: - Gender: Female Clinic Director: : 1990 Requested By: 1031 Order Number: [id number] Reading MD: RANDOLPH MIXON M.D. Measurements Intervals [place] Rate: 79 P: 43 RI: 130 QRS: 39 QRSD: 90 T: 8 QT: 398 QTc: 432 Interpretive Statements 1100 Sinus rhythm 4068 Nonspecific Twave abnormality 9130 borderline ECG No previous ECG available for comparison Electronically Signed On 06-21-2025 6:28:32 EDT by RANDOLPH MIXON M.D. Dictated By: RANDOLPH MIXON Signed By: 06/21/2529 DD/ 14 TD/TT: Practice Advisor:EMILE Gomes, reflex to culture Reviewed date:06/23/2025 10:27:35 PM Interpretation: Performing Lab: Notes/Report: [facility] ,Color UrineLT. YELLOWYELLOWClarity UrineCLEARCLEARSpecific [place] Urine1.010 1.005-1.025pH Urine7.05.0-9.0Protein UrineNEGATIVENEG/TRACE mg/dLGlucose Urine UANEGATIVENEGATIVE mg/dLBilirubin UrineNEGATIVENEGATIVEKetones UrineNEGATIVE NEGATIVE mg/dLBlood UrineNEGATIVENEGATIVENitrite UrineNEGATIVENEGATIVE Urobilinogen Urine0.20.2-1.0 EU/dLLeukocyte Esterase UrineNEGATIVENEGATIVEWBC Urine0-2NONE SEEN #/HPFARBC Urine0-20-2 #/HPFBacteria UrineTRACENONE SEEN #/HPFA Mucus UrineNONE SEENNONE SEENSquamous Epithelial Cell UrineFEWNONE/RARE #/LPFA Crystals Seen?None SeenNone Seen #/HPFCast Seen?NONE SEENNONE SEEN #/LPFUrine Culture IndicatedNOPerforming Lab:see noteML - [facility] LBUA Culture/Micro if Indicated Reviewed date:06/23/2025 10:27:19 PM Interpretation: Performing Lab: Notes/Report: [facility] ,Color UrineLT. YELLOWYELLOWClarity UrineCLEARCLEARSpecific [place] Urine<=1.005 1.005-1.025ApH Urine6.05.0-9.0Protein UrineNEGATIVENEG/TRACE mg/dLGlucose Urine II934LLARUEFZ mg/dLABilirubin UrineNEGATIVENEGATIVEKetones UrineNEGATIVENEGATIVE mg/dLBlood UrineNEGATIVENEGATIVENitrite UrineNEGATIVENEGATIVEUrobilinogen Urine 0.20.2-1.0 EU/dLLeukocyte Esterase UrineNEGATIVENEGATIVEUrine Microscopic IndicatedNOPerforming Lab:see noteML - [facility] LBComplete Blood Count Auto Diff Reviewed date:06/23/2025 10:27:19 PM Interpretation: Performing Lab: Notes/Report: [facility] ,White Blood Count14.64.0-11.0 10 3/uLHRed Blood Count3.694.20-5.40 10 6/uLL Fwmqydkuro52.512.0-16.0 g/yXUQzrctycqhq54.236.0-48.0 %LMean Corpuscular Volume 92.781.0-99.0 fLNMean Corpuscular Kiqhjmcsgz23.226.7-34.0 pgNMean Corpuscular HGB Conc33.629.9-35.2 g/dLNRed Cell Distribution Width12.911.0-15.0 %NPlatelet Ewqsu495070-142 10 3/uLNMean Platelet Nspmub65.49.5-13.5 fLNNeutrophils Percent Auto74.543.0-75.0 %NLymphocytes Percent Auto15.420.5-60.0 %LMonocytes Percent Auto6.71.7-12.0 %NEosinophils Percent Auto1.90.9-7.0 %NBasophils Percent Auto0.3 0.2-2.0 %NImmature Granulocytes Pct Auto1.20.0-0.5 %HNeutrophils Absolute Auto 10.91.4-6.5 10 3/uLHLymphocytes Absolute Auto2.21.2-3.8 10 3/uLNMonocytes Absolute Auto1.00.3-0.8 10 3/uLHEosinophils Absolute Auto0.30.0-0.7 10 3/uLN Basophils Absolute Auto0.00.0-0.1 10 3/uLNImmature Granulocytes Abs Auto0.18 0.00-0.03 10 3/uLHPerforming Lab:see noteML - [facility] LBBasic Metabolic Panel Reviewed date:06/23/2025 10:27:19 PM Interpretation: Performing Lab: Notes/Report: [facility] ,Hfzebi231787-871 mmol/LNPotassium3.33.5-5.1 mmol/AOFxtbdigm12045-137 mmol/LN Carbon Krqzurr85.321.0-32.0 mmol/LNAnion Gap15.0Pzdcmtb64051-851 mg/dLHBlood Urea Nitrogen5.07.0-18.0 mg/dLLCreatinine0.570.55-1.02 mg/dLNEstimated GFR ( Claritza>60>=60 mL/min/1.73m 2Estimated GFR (Non- Meghana>60>=60 mL/min/1.73m 2BUN Creatinine Ratio8.3Mnabvmx0.78.5-10.1 mg/dLNPerforming Lab:see noteML - [facility] LBUS OB BPP w non-stress Reviewed date:07/14/2025 11:11:37 PM Interpretation: Performing Lab: Notes/Report: Source Facility: [facility]-[address] [place] [address] [place] [address] Ultrasound Report Signed Patient: ELLEN RAMIRES MR#: [id number] : 1990 Acct:[id number] Age/Sex: 35 / F ADM Date: 07/12/25 Loc: US Attending Dr: Israel Broderick D.O. Ordering Physician: Israel Broderick D.O. Date of Service: 07/12/25 Procedure(s): US OB BPP w non-stress Accession Number(s): [id number] cc: Israel Broderick D.O.; Judy Yepez NP [place] [address] Patient Name: ELLEN RAMIRES MRN: [facility]:[id number] date: 1990 Sex: F Assigned Patient Location: Current Patient Location: [facility] Accession/Order Number: [id number] Exam Date: 07/12/2025 09:56 Report Date: 07/12/2025 14:56 At the request of: ISRAEL BRODERICK DO Procedure: US OB BPP w non-stress Biophysical profile. Reason for exam: History of preeclampsia COMPARISON: None TECHNIQUE: Transabdominal imaging of the gravid uterus was obtained. FINDINGS: The senior project architect reports a BPP of 8 out of 8. CHETAN is normal at 12.8 cm. heart rate 159 bpm. US/US OB BPP w non-stress IMPRESSION: BPP 8 out of 8. Impression dictated by: Mariusz Malloy Jr., D.O. 07/12/2025 2:56 PM Dictation Location: [place] [address] Electronically authenticated by: [id number] Y Date: 07/12/2025 14:56 Dictated By: Mariusz Malloy M.D. Signed By: 07/12/25 1458 DD/ 1456 TD/TT: Practice Advisor:US OB growth Reviewed date:07/19/2025 09:17:12 PM Interpretation: Performing Lab: Notes/Report: Source Facility: [place] [address] [place] [address] Ultrasound Report Signed with Jolanta Patient: ELLEN RAMIRES MR#: [id number] : 1990 Acct:[id number] Age/Sex: 35 / F ADM Date: 07/12/25 Loc: US Attending Dr: Israel Broderick D.O. Ordering Physician: Israel Broderick D.O. Date of Service: 07/12/25 Procedure(s): US OB growth Accession Number(s): [id number] cc: Israel Broderick D.O.; Judy Yepez NP ADDENDUM The [address] [address] This is an addendum 57th percentile for estimated weight. Impression dictated by: Mariusz Malloy Jr., D.O. 07/17/2025 8:54 AM Dictation Location: [place] [address] Electronically authenticated by: [id number] Y Date: 07/17/2025 08:54 Patient Name: ELLEN RAMIRES MRN: [facility]:[id number] date: 1990 Sex: F Assigned Patient Location: Current Patient Location: Accession/Order Number: [id number] Exam Date: 07/12/2025 09:56 Report Date: 07/17/2025 08:54 At the request of: ISRAEL BRODERICK DO Procedure: US OB growth The [address] [address] Patient Name: ELLEN RAMIRES MRN: [facility]:[id number] date: 1990 Sex: F Assigned Patient Location: Current Patient Location: [facility] Accession/Order Number: [id number] Exam Date: 07/12/2025 09:56 Report Date: 07/12/2025 [...] Jr., D.O. 07/12/2025 2:57 PM Dictation Location: [facility]--22 Electronically authenticated by: [id number] Y Date: 07/12/2025 14:57 Addendum Dictated By: Mariusz Malloy M.D. Addendum Signed By: 07/17/25 0 857 Addendum Cosigned By: DD/ TD/TT: / [place] [id number] Patient Name: ELLEN RAMIRES MRN: [facility]:[id number] date: 1990 Sex: F Assigned Patient Location: US Current Patient Location: [facility] Accession/Order Number: [id number] Exam Date: 07/12/2025 09:56 Report Date: 07/12/2025 [...] Jr., D.O. 07/12/2025 2:57 PM Dictation Location: [facility]-22 Electronically authenticated by: [id number] Y Date: 07/12/2025 14:57 Dictated By: Mariusz Malloy M.D. Signed By: 07/12/25 1500 DD/ 1457 TD/TT: Practice Advisor:US OB BPP w non-stress Reviewed date:08/05/2025 07:01:01 AM Interpretation: Performing Lab: Notes/Report: Source Facility: [place] [address] Ultrasound Report Signed Patient: ELLEN RAMIRES MR#: [id number] : 1990 Acct:[id number] Age/Sex: 35 / F ADM Date: 08/02/25 Loc: US Attending Dr: Israel Broderick D.O. Ordering Physician: Israel Broderick D.O. Date of Service: 08/02/25 Procedure(s): US OB BPP w non-stress Accession Number(s): [id number] cc: Israel Broderick D.O.; Judy Yepez [place] [address] Patient Name: ELLEN RAMIRES MRN: [id number] date: 1990 Sex: F Assigned Patient Location: Current Patient Location: Accession/Order Number: [id number] Exam Date: 08/02/2025 10:15 Report Date: 08/02/2025 [...] Gibson M.D. 08/02/2025 4:49 PM Dictation Location: [place] [address] Electronically authenticated by: [id number] Y Date: 08/02/2025 16:49 Dictated By: Raffy Gibson M.D. Signed By: 08/02/251651 DD/ 48 TD/TT: Practice Advisor:US OB growth Reviewed date:08/05/2025 07:01:01 AM Interpretation: Performing Lab: Notes/Report: Source Facility: [place] [address] [place] [address] Ultrasound Report Signed Patient: ELLEN RAMIRES MR#: [id number] : 1990 Acct:[id number] Age/Sex: 35 / F ADM Date: 08/02/25 Loc: US Attending Dr: Israel Broderick D.O. Ordering Physician: Israel Broderick D.O. Date of Service: 08/02/25 Procedure(s): US OB growth Accession Number(s): [id number] cc: Israel Broderick D.O.; Judy Yepez [place] [address] Patient Name: ELLEN RAMIRES MRN: [id number] date: 1990 Sex: F Assigned Patient Location: Current Patient Location: Accession/Order Number: [id number] Exam Date: 08/02/2025 10:15 Report Date: 08/02/2025 [...] Gibson M.D. 08/02/2025 4:46 PM Dictation Location: [place] [address] Electronically authenticated by: [id number] Y Date: 08/02/2025 16:46 Dictated By: Raffy Gibson M.D. Signed By: 08/02/259 DD/ 45 TD/TT: Practice Advisor:Urine Microscopic Reviewed date:05/30/2025 09:54:53 AM Interpretation: Performing Lab: Notes/Report: [facility] ,WBC Urine0-2NONE SEEN #/HPFARBC Urine0-20-2 #/HPFBacteria UrineTRACENONE SEEN #/HPFAMucus UrineNONE SEENNONE SEENSquamous Epithelial Cell UrineFEWNONE/RARE #/LPFACrystals Seen?None SeenNone Seen #/HPFCast Seen?NONE SEENNONE SEEN #/LPF Performing Lab:see noteML - [facility] LBUA Culture/Micro if Indicated Reviewed date:05/30/2025 09:54:53 AM Interpretation: Performing Lab: Notes/Report: [facility] ,Color UrineLT YELLOWYELLOWClarity UrineCLEARCLEARSpecific [place] Urine<=1.005 1.005-1.025ApH Urine7.05.0-9.0Protein UrineNEGATIVENEG/TRACE mg/dLGlucose Urine UANEGATIVENEGATIVE mg/dLBilirubin UrineNEGATIVENEGATIVEKetones UrineNEGATIVE NEGATIVE mg/dLBlood UrineNEGATIVENEGATIVENitrite UrineNEGATIVENEGATIVE Urobilinogen Urine0.20.2-1.0 EU/dLLeukocyte Esterase UrineTRACENEGATIVEAUrine Microscopic IndicatedYESPerforming Lab:see noteML - [facility] LB Creatinine 24 Hour Urine Reviewed date:05/26/2025 02:26:35 PM Interpretation: Performing Lab: Notes/Report: [facility] ,Creatinine Urine Irtkjx34.4120.00-300.00 mg/dLNTotal Volume 24 Hour Hfuyg4689 Creatinine 24 Hour Ajucf2991.05448.00-1800.00 mg/24 hrHPerforming Lab:see noteML - [facility] LBTotal Protein 24 Hour Urine Reviewed date:05/26/2025 02:26:35 PM Interpretation: Performing Lab: Notes/Report: [facility] ,Total Protein Urine Random<6.0<=11.9 mg/dLPerforming Lab:see noteML - [facility] LBAFP, Serum, Open Spina Bifida Reviewed date:05/26/2025 02:17:58 PM Interpretation: Performing Lab: Notes/Report: N N LMP [id number] 2 9 N 1 282 N N N N N White/ [facility] ,ResultsReport.Test Results:*Screen Negative*.Gest. Age on Collection Date21.1. weeksGestat. Age Based OnLMP. Recalculations are not recommended when gestational dating by LMP and ultrasound are within 10 days. Maternal Age At EDD33.5. yrRaceCaucasian.Lwjrhn234. lbsInsulin Dep DiabetesNo. Multiple GestationNo.AFP Value38.2. ng/mLAFP MoM0.85.OSBR Risk 1 [id number]. InterpretationComment. Interpretation: Screen Negative This result is [...] Customer Services to discuss available options. The [place] [employer] recommends amniocentesis be offered to women age 35 and older. Comment:Comment. Gema Ortez, Ph.D., [facility] Director References: Available Upon Request. Multiples Of Median Cutoffs For AFP Elevations Kumar 2.5 Black 2.8 IDD 2.0 Twins 4.5 Abbreviation Definitions IDD - Insulin Dep Diabetes OSBR - Open Spina Bifida Risk For further inquiries contact [facility] at [phone]. This test was developed and its performance characteristics determined by [employer]. It has not been cleared or approved by the Food and Drug Administration. Performed at: [facility] [address] [place], [place] [address] Oncology Specialist: Jesus Saleh [facility], Phone: [phone] Performing Lab:see noteLC - [facility] LBVITAMIN D 25 HYDROXY Reviewed date:02/08/2025 09:10:44 AM Interpretation: Performing Lab: Notes/Report:VITAMIN D, 25 LWXZRCB47.630.0-100.0 ng/mLL 25-OH VITAMIN D INTERPRETATION Deficiency.... <20.0 ng/ml Insufficiency..20.0-29.0 ng/ml Sufficiency....30.0-100.0 ng/ml Possible Toxicity...>150 ng/ml UNLESS OTHERWISE INDICATED, ALL TESTING PERFORMED AT: [employer] [address] [place] [address] SERVICE COORDINATOR ELDERLY FACILITY: BARBARA DASH M.D. CLIA NUMBER [id number] CAP ACCREDITATION AUID [id number] CBC NO DIFF Reviewed date:02/08/2025 11:13:49 AM Interpretation: Performing Lab: Notes/Report:WBC13.83.6-11.0 THDS/CMMHRBC4.253.80-5.20 MILL/AUUXTR96.311.9-16.0 G/DLHCT40.035-47 %UMZ3727-398 fLMCH31.326.0-33.0 ypGOTR74.332.0-35.0 g/dlRDW12.8 11.2-14.8 %PQLXEYCT761238-323 THOUS/CMMCOMPREHENSIVE METABOLIC PANEL WITH GFR Reviewed date:02/08/2025 08:56:14 AM Interpretation: Performing Lab: Notes/Report:COATYMD4032-165 mg/aPHVC41-14 mg/dLCALCIUM9.48.6-10.5 mg/dL CREATININE, BLOOD0.710.51-1.15 mg/dLeGFR (2020 CKD-EPI)116>59 mL/min/1.73m2 DUDCUA742930-174 mmol/LPOTASSIUM4.43.5-5.4 mmol/XXMLQEYPD35819-123 mmol/GAF908 18-32 mmol/LANION CXD611-11 mmol/LT. BILIRUBIN0.2<1.3 mg/dLALK SMPH4814-183 U/L WCW-WVLK177-32 U/MCZP-GYCU590-49 U/LT. PROTEIN6.56.0-8.3 g/dLALBUMIN4.23.5-5.2 g/dLTSH + FREE T4 PROFILE Reviewed date:02/08/2025 08:56:14 AM Interpretation: Performing Lab: Notes/Report:TSH1.690.270-4.200 uIU/mL The [employer] (HUGO) recommends the following reference ranges for TSH levels during : First trimester: 0.1 to 2.5 mIU/L Second trimester: 0.2 to 3.0 mIU/L Third trimester: 0.3 to 3.0 mIU/L FREE T41.120.80-1.90 ng/dLLIPID PANEL WITH REFLEX TO DIRECT LDL Reviewed date:02/08/2025 11:13:42 AM Interpretation: Performing Lab: Notes/Report:XRHIEXUOYDK291357-591 mg/fGAKLONBWUCKCZI72541-473 mg/dLHVLDL-CHOL, CBNQWNVEHN09<30 mg/dLHHDL-CHOL45>=50 mg/dLLLDL-CHOL, ULDOAXZVWI70<130 mg/dL ADULT LDL CHOLESTEROL CLASSIFICATION <100mg/dL Optimal [...] risk <7.1 <5.6 high risk >7.1 >5.6 CHOL/HDL3.82.0-4.5URINALYSIS - REFLEX CULTURE/SENS Reviewed date:11/13/2024 11:59:49 AM Interpretation: Performing Lab: Notes/Report:PH6.55.0-8.0SP GRAVITY1.0061.005-1.030APPEARANCECLEARCLEARCOLOR YELLOWYELLOWPROTEINNEGATIVENEGATIVEGLUCOSENEGATIVENEGATIVEKETONESNEGATIVE NEGATIVEBILIRUBINNEGATIVENEGATIVEOCCULT BLOODNEGATIVENEGATIVELEUKO ESTERNEGATIVE NEGATIVENITRITENEGATIVENEGATIVEUROBILINOGEN0.2<2 mg/dL UNLESS OTHERWISE INDICATED, ALL TESTING PERFORMED AT: [employer] [address] [place] [address] SERVICE COORDINATOR ELDERLY FACILITY: BARBARA DASH M.D. 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 Stress is when someone feels tense, nervous, anxious, or can't sleep at nightbecause their mind is troubledQuite a bitpatient entered dataIn the past year have you spent more than 2 nights in a row in a skilled nursing, senior care, penitentiary center, orjuvenile correctional facility?Nopatient entered dataAre you [...] rid of a hangover?Nopatient entered dataCAGE- AID Qmcsx0CjkasvbhckspimPkkksfxwDnhmcnizWdoeit:1-2 cups per daypopTobacco Use: Social InfoQuestionAnswerNotesTobacco Use/SmokingTobacco use:nonsmokerpatient entered dataAdditional DetailsCategorySocial InfoOptionsDetailsMiscellaneous: Occupation:works full-timeCulture/Language BarrierNoEducation LevelGrade 7-12 Barriers to LearningNoneLearning PreferenceDoing or practicingHow often do you need to have someone help you read instructionsNeverSafetyPatient feels safe in relationshipsYesDrugs/Alcohol/Caffeine:Do you drink alcohol?No Problems Problem Type SNOMED Code ICD Code Onset Dates Problem Status W/U Status Risk Notes Problem Exercises teaching, guidance, and counseling (140443080) Exercise counseling (Z71.82) ActiveconfirmedProblemMissed period (66415488)Missed period (N92.6)Active confirmedProblemVitamin D deficiency (31356126)Vitamin D deficiency (E55.9) ActiveconfirmedProblemBurning sensation of vagina (finding) (265642395)Vaginal burning (N94.9)ActiveconfirmedProblemAnxiety depression (627455046)Anxiety with depression (F41.8)ActiveconfirmedProblemDietary management surveillance (186772419)Dietary counseling (Z71.3)ActiveconfirmedProblemFemale infertility (6854676)Female fertility problem (N97.9)Activeconfirmed Vital Signs Heart Rate [...] pressure systolic 141 mm Hg 05/21/2025 Tayo ovlamar Dayron 05/21/2025 01:17:11 PM EDT > Weight 284 lbs 05/21/2025 Shen, Ser vando 05/21/2025 01:17:11 PM EDT > BMI 43.18 kg/m2 05/21/2025 Ac Ser vando 05/21/2025 01:17:11 PM EDT > Encounters Encounter Location Date Provider Diagnosis [address] [id number] 11/06/2024 Sabiha Aviles Depression with anxi ety F41.8 and Hospital discharge follow-up Z09 [address] [place] [address] [id number] 11/12/2024 Sabiha Aviles Dysuria R30.[address] [id number] 12/04/2024 Sabiha Aviles Anxiety with depress ion F41.[address] [id number] 02/05/2025 Sabiha Aviles Encounter for [facility] ss examination Z00.00 ; Screening for cardiovascular condition Z13.6 ; Exercise counseling Z71.82 ; Nutritional counseling Z71.3 ; Screening for thyroid disorder Z13.29 and Vitamin D deficiency E55.9 [address] [place], [place] [id number] 05/21/2025 Judy Marleni Anxiety with depress ion F41.8 ; Left otitis media, unspecified otitis media type H66.92 ; 21 weeks gestation of Z3A.21 ; Severe obesity (BMI >= 40) E66.01 and BMI 40.0-44.9, adult Z68.41 [address] [place], [place] [id number] 04/26/2025 Noelle Chris Anxiety with depress ion F41.8 [address] [place], [place] [id number] 06/17/2025 Merary Espino Assessments Encounter Date Diagnosis [...] Plan Of Treatment Next Appt Details Provider Name:Judyedwin Yepez , 08/27/2025 08:15:00 AM, [address] [place], [id number], Insurance Providers Payer Name Payer Address Payer Phone Subscriber Number Group Number Insured Name Patient Relationship to Insured Coverage Start Date Coverage End Date [facility] [address] [place] [phone] [id number] Ellen Ramires Self - patient is the insured 3 Medicaid [employer] after [address] [place], [place] [id number], Lauren Self - patient is the [id number] 2022 Medical (General) History Medical History History ICD Code anxiety depressionSurgical History Surgery Date(Month/Year) Crum [place] teeth laparoscopy- endometriosis
--- OUTSIDE RECORDS SUMMARY | 2025-08-16 15:14 | XMS_ITS | CCD ---
Author Organization [facility] Care Team Providers Care Catapult And Arresting Gear Officer Name Role Phone Pinky Singh Unavailable Judy Caal Unavailable Unavailable Unavailable Primary Care Provider Unavailabl e Services, Formerly [facility], [facility] Primary Care Provider Caesar Broderick DO Attending Provider [phone] Caesar Broderick Attending Unavailable Davie, Caesar Admitting Unavailable White WOMEN'S MINISTRY DIRECTOR, June A Unavailable Unavailable ROBBIE LOPEZ Attending Unavailable Services, [facility], [facility] Primary Care Provider SERVICES, [facility] Care Unava ilable MILLIE VILLAGRAN Attending Unavailable SERVICES, [facility] Care Unava ilable FRANCIE ABRAMS Attending Unavailable DAVIE, CAESAR R Referring Unavailable SERVICES, [facility] Care Unava ilable DAVIE, CAESAR R Referring Unavailable SERVICES, [facility] Care Unava ilable YORDY CRUZ Attending Unavailable DAVIE, CAESAR R Referring Unavailable SERVICES, [facility] Care Unava ilable DAVIE, CAESAR R Referring Unavailable SERVICES, [facility] Care Unava ilable YORDY CRUZ Attending Unavailable DAVIE, CAESAR R Referring Unavailable SERVICES, [facility] Care Unava ilable Services, [facility], [facility] Primary Care Provider DEWEY BRODERICKY Attending [...] 125 mg oral tablet (2 sources)Penicillin-class AntibacterialStart: 64-07-2476yhrz 1 tablet by mouth twice dailyAmoxicillin-Pot Clavulanate 875-125 mg tablet Active 1 TAB PO Twice daily November 24, 2023 12:00amaspirin 81 mg delayed release oral tablet (4 sources)Platelet Aggregation Inhibitor, Nonsteroidal Anti-inflammatory Drug take 1 tablet by mouth in the morningaspirin 81 mg Take 1 tablet (81 mg total) by mouth in the morning. Activecholecalciferol 0.01 mg oral tablet (20 sources)Vitamin DStart: 77-18-2904cgrllqpqxhhdlyo 10 mcg (400 unit) tablet 2 tablets (800 Units total) in the morning. 01/26/2024 ActiveStart: 01-26-2024 End: 90-50-7031Mtzamznzwqiudws 10 MCG (400 UNIT) chewable tablet 1 (one) time each day at the same time Discontinued (Therapy completed) End: 21-34-7180wdiv 2 tablets by mouth once dailyD-400 10 MCG (400 UNIT) tablet TAKE 2 TABLETS BY MOUTH ONCE DAILY FOR 30 DAYS 03/28/2025 Discontinuedclobetasol propionate 0.0005 mg/mg topical ointment (3 sources)CorticosteroidStart: 05-17-2025 End: 82-39-7665mcddqwmvfO (TEMOVATE) 0.05 % ointment Indications: Acute palmoplantar pustular psoriasis , Chronic hypertension affecting , 20 weeks gestation of Apply a thin layer to the affected areas twice daily. 30 g 05/17/2025 05/31/2025 ActiveclomiPHENE citrate 50 mg oral tablet (3 sources)Estrogen Agonist/AntagonistStart: 11-12-2024 End: 52-89-5292pwgl 2 tablets by mouth once dailyclomiPHENE (Clomid) 50 MG tablet Indications: Encounter for fertility planning , PCOS (polycystic ovarian syndrome) , Fallopian tube disorder Take 2 tablets (100 mg) by mouth Daily for 5 days 10 tablet 11/12/2024 11/17/2024 Activefluticasone propionate 0.05 mg/actuat metered dose nasal spray (4 sources)CorticosteroidStart: 11-24-2023 End: 68-75-1203eugzpeetwcl (Flonase) 50 MCG/ACT nasal spray Daily 11/24/2023 04/10/2024 Discontinued (Other)Start: 52-46-2997bard 1 spray(s) nasal route once dailyFluticasone Propionate 50 mcg/actuation spray,suspension Active 2 SPRAY INTRANASAL Daily November 24, 2023 12:00am administer into each nostril labetalol hydrochloride 100 mg oral tablet (14 sources)beta-Adrenergic BlockerStart: 06-24-2025 End: 55-08-4946okvt 1 tablet by mouth once dailylabetalol (Normodyne) 100 MG tablet Indications: Hypertension Take 1 tablet (100 mg) by mouth Daily30 tablet 3 06/24/2025 07/24/2025 ActiveStart: 05-16-2025 End: 09-04-3859zvjw 1 tablet by mouth once at bedtimelabetalol (Normodyne) 200 MG tablet Indications: Second trimester (HHS-HCC) , Gestational hypertension, antepartum (HHS-HCC) TAKE 1 TABLET (200 MG) BY MOUTH IN THE MORNING AND AT BEDTIME 60tablet 2 05/16/2025 05/23/2025 Discontinued (Ineffective)Start: 04-11-2025 End: 58-69-9378tliu 1 tablet by mouth once in the morninglabetalol (Normodyne) 200 MG tablet Indications: Second trimester (HHS-HCC) , Gestational hypertension, antepartum (HHS-HCC) Take 1 tablet (200 mg) by mouth in the morning and 1 tablet (200mg) before bedtime. 60 tablet 04/11/2025 05/11/2025 Active End: 38-76-3645mpqw 1 tablet by mouth in the morning, then take 1 tablet by mouth at bedtimelabetaloL (NORMODYNE) 200 mg tablet Take 1 tablet (200 mg total) by mouth in the morning and 1 tablet (200 mg total) before bedtime. 05/17/2025 Discontinuedmagnesium oxide 400 mg oral tablet (15 sources)Start: 03-28-2025 End: 27-12-6884evqz 1 tablet by mouth once dailymagnesium oxide (Mag-Ox) 400 MG tablet Indications: Second trimester (HHS-HCC) , Acute nonintractable headache, unspecified headache type Take 1 tablet (400 mg) by mouth Daily 30 tablet 6 03/28/2025 04/27/2025 ActivemetFORMIN hydrochloride 500 mg oral tablet (20 sources)BiguanideStart: 60-81-3915byxSDZNOX (Glucophage) 500 mg tablet 1 tablet (500 mg). 05/22/2024 ActiveStart: 04-10-2024 End: 64-68-4995ovij 1 tablet by mouth every twenty-four hours at mealtime metFORMIN XR (Glucophage-XR) 500 MG 24 hr tablet Indications: PCOS (polycystic ovarian syndrome) , Abnormal uterine bleeding (AUB) Take 1 tablet (500 mg) by mouth in the evening. Take with meals Do not crush, chew, or split. 30 tablet 11 04/10/2024 03/01/2025 Discontinued (Therapy completed) End: 22-34-1308sigk 1 tablet by mouth once daily at breakfastmetFORMIN XR (GLUCOPHAGE XR) 500 mg 24 hr tablet Take 1 tablet (500 mg total) by mouth daily with breakfast. 05/17/2025 DiscontinuedNIFEdipine 30 mg osmotic 24 hr extended release oral tablet (20 sources)Dihydropyridine Calcium Channel BlockerStart: 31-54-3549lerw 2 tablets by mouth every twenty-four hours at bedtimeNIFEdipine XL (PROCARDIA XL) 30 mg 24 hr tablet Indications: Chronic hypertension affecting , 20 weeks gestation of Take 2 tablets (60 mg total) by mouth in the morning and at bedtime. 60 tablet 2 06/18/2025 ActiveStart: 05-30-2025 End: 04-84-6519edzy 1 tablet by mouth once daily in the morningNIFEdipine XL (Procardia XL) 60 MG 24 hr tablet Indications: Chronic hypertension affecting ([facility]) Take 1 tablet (60 mg) by mouth Daily Take 1 tablet in the am. Do not crush, chew, or split. 30 tablet 3 05/30/2025 05/30/2026 ActiveStart: 72-68-6367lort 1 tablet by mouth once dailyProcardia XL 30 MG 24 hr tablet Take 30 mg by mouth Daily 05/17/2025 ActiveStart: 05-17-2025 End: 05-86-7737xtbh 1 tablet by mouth every twenty-four hours at bedtime NIFEdipine XL (PROCARDIA XL) 30 mg 24 hr tablet Indications: Chronic hypertension affecting , 20 weeks gestation of Take 1 tablet (30 mg total) by mouth in the morning and at bedtime. 60 tablet 2 05/17/2025 06/18/2025 DiscontinuedpredniSONE 20 mg oral tablet (2 sources)Start: 17-44-3907suxm 1 tablet by mouth twice dailyPrednisone 20 mg tablet Active 20 MG PO Twice daily 10 November 24, 2023 12:00amprenatal 115/iron/folic acid ( 19 ORAL) (4 sources)take 1 tablet by mouth in the morningprenatal 115/iron/folic acid ( 19 ORAL) Take 1 tablet by mouth in the morning. Activesertraline 25 mg oral tablet (20 sources)Serotonin Reuptake InhibitorStart: 74-27-1261murm 1 tablet by mouth in the morningsertraline (ZOLOFT) 25 mg tablet Indications: Anxiety disorder affecting , antepartum Take1 tablet (25 mg total) by mouth in the morning. 30 tablet 1 06/18/2025 ActiveStart: 03-48-8803krtp 1 tablet by mouth in the morningsertraline (ZOLOFT) 50 mg tablet Indications: Anxiety disorder affecting , antepartum Take1 tablet (50 mg total) by mouth in the morning. 30 tablet 1 06/18/2025 ActiveStart: 11-06-2024 End: 84-63-8568cwst 2 tablets by mouth once dailysertraline (Zoloft) 25 MG tablet Take 50 mg by mouth 1 (one) time each day at the same time 11/06/2024 ActiveStart: 11-06-2024 End: 55-62-2997vrka 3 tablets by mouth at bedtimesertraline (ZOLOFT) 25 mg tablet Take 3 tablets (75 mg total) by mouth before bedtime. 11/06/2024 DiscontinuedStart: 11-06-2024 End: 36-06-8698oncorpmhwy (Zoloft) 25 MG tablet 1 (one) time each day at the same time 11/06/2024 ActiveStart: 08-04-2023 End: 61-56-1922czwy 1 tablet by mouth once dailysertraline (Zoloft) 50 MG tablet Take 50 mg by mouth Daily 08/04/2023 04/10/2024 Discontinued (Other)sertraline (ZOLOFT) 25 mg tablet Take by mouth daily. Active Completed/Discontinued Medications MedicationDrug Class(es)DatesSig (Normalized)Sig (Original)omeprazole 20 mg delayed release oral capsule (20 sources)Proton Pump InhibitorStart: 01-24-2024 End: 14-05-3951ygdd 1 capsule by mouth in the morningomeprazole (PriLOSEC) [address] capsule Take 20 mg by mouth in the morning. 01/24/2024 03/28/2025 Dis continued Problems Active Problems Problem ClassificationProblemDateDocumented DateEpisodic/ChronicAbdominal pain (3 sources)Pain in female pelvis; Translations: [Pelvic and perineal pain] 32-10-4378OthtgzptLxjwdfv disorders (1 source)Anxiety disorder, unspecified; Translations: [Anxiety disorder, unspecified]Onset: 28-59-6029HlinwiiUmmtdhtsaegcr and procreative management (10 sources)Patient encounter status; Translations: [Encounter for other procreative management]02-59-9744AcfuvwwvVfqdamfu; including migraine (4 sources)Acute headache; Translations: [Acute nonintractable headache, unspecified headache type]14-43-1967XnlhgnpaEjofhrmxwyeg complicating ; childbirth and the puerperium (18 sources)Hypertension complicating ; Translations: [Unspecified maternal hypertension, second trimester]Onset: hronic Hypertension complicating ; childbirth and the puerperium (20 sources)Hypertension AND/OR vomiting complicating childbirth AND/OR puerperium; Translations: [Gestational [-induced] hypertension without significant proteinuria, unspecified trimester]Onset: 04-25-2025 94-42-8914NbtmnnifXnhvnkucrdyto and screening for infectious disease (6 sources)Contact with and (suspected) exposure to other viral communicable diseases; Translations: [Contact with or exposure to other viral diseases] EpisodicMenstrual disorders (2 sources)Amenorrhea; Translations: [Amenorrhea, unspecified]08-03-1710Kzkdhgb Nutritional deficiencies (20 sources)Vitamin D deficiency; Translations: [Vitamin D deficiency, unspecified]Onset: 536094-42-5313JpwkflyEusl wounds of extremities (2 sources)Laceration without foreign body of right thumb without damage to nail, initial encounter; Translations: [Laceration of finger]Onset: 04-29-2025 EpisodicOther aftercare (2 sources)Postoperative visit; Translations: [Encounter for other specified surgical aftercare]71-37-5545OycpxqjqIdomc and unspecified benign neoplasm (1 source)Pigmented skin lesion ; Translations: [Melanocytic nevi, unspecified] 93-07-8753EtiolkpcQfdff circulatory disease (1 source)H/O: hypertension; Translations: [Personal history of other diseases of the circulatory system]74-64-2314WsbjynbsEhzmd complications of (5 sources)Maternal obesity complicating , childbirth and the puerperium, antepartum; Translations: [Obesity complicating , unspecified trimester]59-73-4321JejfujzMxhfh complications of (2 sources)Obesity complicating , unspecified trimester; Translations: [Obesity complicating , unspecified trimester]Onset: 02-00-5145Fwygjhc Other complications of (17 sources)History of pre-eclampsia; Translations: [Supervision of with other poor reproductive or obstetric history, unspecified trimester]Onset: 607258-06-8739DlkxwsdiQpjmm complications of (2 sources)Other mental disorders complicating , unspecified trimester; Translations: [Mental disorders of mother, antepartum condition or complication] Onset: 663978-34-3869HjyrcpvwRwtti endocrine disorders (20 sources)Polycystic ovary syndrome; Translations: [Polycystic ovarian syndrome]Onset: 439063-16-1249FiaznbbCgavd female genital disorders (4 sources)Abnormal uterine bleeding; Translations: [Abnormal uterine and vaginal bleeding, unspecified]09-76-1720BkhzafqNqluj female genital disorders (2 sources)Abnormal uterine and vaginal bleeding, unspecified; Translations: [Abnormal uterine and vaginal bleeding, unspecified]Onset: 18-30-3959Dhcmeeu Other inflammatory condition of skin (5 sources)Pustular psoriasis of palms and soles; 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]74-80-8042ZnvdtfyPzxlx inflammatory condition of skin (2 sources)Pustulosis palmaris et plantaris; 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]Onset: 37-79-9996EuwxmogGrprw nutritional; endocrine; and metabolic disorders (2 sources)Morbid (severe) obesity due to excess calories; Translations: [Morbid (severe) obesity due to excess calories]Onset: 39-24-4732YkazponYlbci and delivery including normal (16 sources); Translations: [Encounter for supervision of normal , unspecified, unspecified trimester]10-18-7215ThjrvbgnGmmkf screening for suspected conditions (not mental disorders or infectious disease) (2 sources)Alpha-fetoprotein blood test status; Translations: [Encounter for screening for raised alphafetoprotein level]44-70-1792TrewnjilLmiyi upper respiratory infections (1 source)Chronic sinusitis, unspecified; Translations: [Unspecified sinusitis (chronic)]18-94-0808PbhyjioGgxzx upper respiratory infections (3 sources)Sore throat symptom; Translations: [Acute pharyngitis, unspecified] 69-83-0840JadhrrxkJtiljzgn codes; unclassified (2 sources)History of laparoscopy; Translations: [Other specified postprocedural states]19-30-5738LyfzvejuBhdevvzz codes; unclassified (1 source)Gestation period, 9 weeks; Translations: [9 weeks gestation of ]34-86-3020CumdmbigOlfkkyxb codes; unclassified (2 sources)Gestation period, 13 weeks; Translations: [13 weeks gestation of ]32-12-1856IfrrvuknYisiosfn codes; unclassified (2 sources)Gestation period, 15 weeks; Translations: [15 weeks gestation of ]12-16-7131SelcwrvkGyeopmsd codes; unclassified (2 sources)Gestation period, 17 weeks; Translations: [17 weeks gestation of ]38-42-5325JuewahhjEgdpijvl codes; unclassified (2 sources)Gestation period, 20 weeks; Translations: [20 weeks gestation of ]28-90-9491XrqzhpvbGmjpffkz codes; unclassified (2 sources)Gestation period, 22 weeks; Translations: [22 weeks gestation of ]00-32-8598NucdybdkIyvqvpny codes; unclassified (2 sources)Gestation period, 21 weeks; Translations: [21 weeks gestation of ]32-00-8590UgvmvvljGkeoizft codes; unclassified (2 sources)Gestation period, 23 weeks; Translations: [23 weeks gestation of ]02-67-7466QtrsyvnmXefqynrm codes; unclassified (1 source)20 weeks gestation of ; Translations: [20 weeks gestation of ]Onset: 41-87-5090BtgwzfnzEabzljhi codes; unclassified (2 sources)Gestation period, 25 weeks; Translations: [25 weeks gestation of ]38-10-5850WqbuoiixUyqefvpvhzni (1 source)gHTNOnset: 05-17-2025 Past or Other Problems Problem ClassificationProblemDateDocumented DateEpisodic/ChronicCardiac dysrhythmias (8 sources)Palpitations; Translations: [Palpitations]Onset: 367437-95-9573 EpisodicNonspecific chest pain (3 sources)Chest pain, unspecified; Translations: [Chest pain]Onset: 11-03-2024 EpisodicOther female genital disorders (20 sources)Fallopian tube disorder; Translations: [Noninflammatory disorder of ovary, fallopian tube and broadligament, unspecified]Onset: 014753-95-1058 EpisodicUnclassified (2 sources)Patient encounter exooyq61-63-7506Kxjdzdxpzdip (1 source)Onset: 445063-18-1157Oaiwqkapuhgx (1 source)Anxiety disorder affecting , clsguvjvwq37-40-3627Jodrivq tract infections (3 sources)Acute cystitis; Translations: [Acute cystitis without hematuria] Onset: 377245-00-9772TrpqivdeEmfyd infection (1 source)COVID-19 Results Test NameValueInterpretationReference RangeFacilityUrinalysis macro (dipstick) panel (U)on 07-37-5363Lujelyyjd, UANegativeNegative - 4(70) +++ mg/dLNOMS HealthcareBlood, UANegativeNegative [...] mg/dLNOMS HealthcareNOMS HealthcareUrinalysis macro (dipstick) panel (U)on 79-61-3961Kmcbiehrh, UA NegativeNegative - 4(70) +++ mg/dLNOMS HealthcareBlood, [...] mg/dLNOMS HealthcareNOMS HealthcareUrinalysis macro (dipstick) panel (U)on 14-63-5625Wxitbfsrq, UANegativeNegative - 4(70) +++ mg/dL NOMS HealthcareBlood, UANegativeNegative - 50 Surjit/mcLNOMS HealthcareClarity, UA ClearNOMS HealthcareColor, UAYellowNOMS HealthcareGlucose, UANegativeNegative - 1999(110) ++++ mg/dLNOMS HealthcareInterpretation and review of laboratory resultsNormalNOMS HealthcareKetones, UANegativeNegative - 160(16) ++++ mg/dLNOMA HealthcareLeukocytes, UANegativeNegative - 500+++ Kaleigh/mcLNOMS HealthcareNitrite, UANegativeNegative - PositiveNOMS HealthcarepH, UA65 - 9NOMS HealthcareProtein, UANegativeNegative - 2000(20) ++++ mg/dLNOMS HealthcareSpec Grav, UA1.0251 - 1.03NOMS HealthcareUrobilinogen, UA0.20.2 - 12 mg/dLNOMS HealthcareNOMS HealthcareAFP, SERUM, OPEN SPINA BIFIDAon 97-16-6314QXL MOM0.85.[facility] AFP VALUE38.2 ng/mL.[facility]ansonCOMMENT:Comment.[facility]ansonComment on above:Gema Ortez, Ph.D., [facility] Director References: Available Upon Request. Multiples Of Median Cutoffs For AFP Elevations Kumar 2.5 Black 2.8 IDD 2.0 Twins 4.5 Abbreviation Definitions IDD - Insulin Dep Diabetes OSBR - Open Spina Bifida Risk For further inquiries contact [employer] at [phone]. This test was developed and its performance characteristics determined by [facility]. It has not been cleared or approved by the Food and Drug Administration. Performed at: [facility] [address] [place], [place] [id number] Avid Editor: Jesus Saleh Formerly [facility], Phone: [phone] GEST. AGE ON COLLECTION DATE21.1. weeksNOMA HealthcareGESTAT. AGE BASED ONLMP. [facility] BransonComment on above:Recalculations are not recommended when gestational dating by LMP and ultrasound are within 10 days. INSULIN DEP DIABETESNo.[facility] HealthcareINTERPRETATIONComment.[facility] Comment on above:Interpretation: Screen Negative This result [...] Customer Services to discuss available options. The [employer] recommends amniocentesis be offered to women age 35 and older. MATERNAL AGE AT EDD33.5. yrNOMA HealthcareMULTIPLE GESTATIONNo.[facility] Healthcare OSBR RISK 1 [id number].NOMS HealthcareRACECaucasian.[facility] HealthcareRESULTSReport. [facility] HealthcareTEST RESULTS:Negative.[facility] IoaoccrfwhZHZMTT657. lbsNOMS HealthcareN N LMP [id number] 9 N 1 282 N N N N N White/ CLINISYNCNOMA HealthcareUnlisted Lab Teston 08-34-8211Wjkbr Free Cell Dnalow riskProSamaritan North Health Center SystemProMagruder HospitalB-TYPE NATRIURETIC PEPTIDEon 84-50-7144Dopjrgjndgs peptide B (Bld) [Mass/Vol]46 pg/mLNormal<=100ProDayton Children'S HospitalComment on above:Performed By: #### BNP #### [facility] (TT) [address] [place] [address] VIRUrinalysis macro (dipstick) panel (U)on 08-99-8053Agryfgxix, UANegativeNegative - 4(70) +++ mg/dLNOMA HealthcareBlood, UANegativeNegative - 50 Surjit/mcLNOMA HealthcareClarity, UAClearNOMA HealthcareColor, UAYellowNOMA HealthcareGlucose, UANegativeNegative - 2000(110) ++++ mg/dLCox Branson Interpretation and review of laboratory resultsNormalNOMA HealthcareKetones, UA NegativeNegative - 160(16) ++++ mg/dLOR[facility]ITAL HealthcareLeukocytes, UANegative Negative - 500+++ Kaleigh/mcLNOMA HealthcareNitrite, UANegativeNegative - Positive [facility] HealthcarepH, UA65 - 9NOMA HealthcareProtein, UANegativeNegative - 2000(20) ++++ mg/dLNOMA HealthcareSpec Grav, UA1.0151 - 1.03NOMA HealthcareUrobilinogen, UA1.00.2 - 12 mg/dLNOPerry County Memorial Hospital HealthcareTBH TOTAL PROTEIN 24 HOUR URINEon 26-51-9913KOGYJ PROTEIN URINE RANDOM<6.0NINF - 11.9 mg/dLCox Branson TOTAL VOLUME 24 HOUR FTUEG3809wQ/24hrNOMA HealthcareCLINISYNCNOMS HealthcareALL CBC WITH AUTO DIFFon 49-06-6771JKSGRFRSD ABSOLUTE QVQQ2IVYS Healthcare Basophils/100 WBC (Bld)0.2 %0.2 - 2.0 %NOMHca Midwest DivisionEosinophils/100 WBC (Bld) 2.9 %0.9 - 7.0 %[facility] BransonErythrocyte distribution width (RBC) [Ratio]12.3 %11.0 - 15.0 %[facility] BransonIMMATURE GRANULOCYTES ABS AUTO0.09HighNOCenterPointe HospitalImmature granulocytes/100 WBC (Bld)0.7 %High0.0 - 0.5 %[facility] Interpretation and review of laboratory resultsAbnormalC[facility] LYMPHOCYTES ABSOLUTE WFCF7XJWWCenterPointe HospitalLymphocytes/100 WBC (Bld)15.4 %Low20.5 - 60.0 %[facility] HospitalH (RBC) [Entitic mass]31.3 pg26.7 - 34.0 pgColumbia Regional HospitalHC (RBC) [Mass/Vol]33.6 g/dL29.9 - 35.2 g/dLColumbia Regional HospitalV (RBC) [Entitic vol]93.2 fL81.0 - 99.0 fLCox BransonMONOCYTES ABSOLUTE AUTO0.5NOCenterPointe HospitalMonocytes/100 WBC (Bld)4.1 %1.7 - 12.0 %[facility]ansonNEUTROPHILS ABSOLUTE AUTO9.9HighNOCenterPointe HospitalNeutrophils/100 WBC (Bld)76.7 %High43.0 - 75.0 %[facility] BransonPlatelet mean volume (Bld) [Entitic vol]10.2 fL9.5 - 13.5 fLCox BransonTBH EO #0.4NOCenterPointe HospitalTBH JPV747JGVOSoutheast Missouri Community Treatment Center RBC3.8 LowNOCenterPointe HospitalTB WCO08GrywQTVQCox BransonCLINISYNCAPTTon 35-80-0954pKUT Coag (Bld) [Time]26.5 [facility] without diffon 04-17-2025 Platelets (Bld) [#/Vol]251 10*3/uLDunlap Memorial Hospital Mcv (Fl) By Automated Count93.2[facility] SystemLaboratory - Hematology and Cell countson 63-28-8432Stpuudfdsp (Bld) [Volume fraction]35.4 %[facility] Hemoglobin (Bld) [Mass/Vol]11.9 g/dLNOMA HealthcareNo Panel Informationon 74-82-7531JPGP HealthcareUrinalysis macro (dipstick) panel (U)on 04-11-2025 Bilirubin, UANegativeNegative - 4(70) +++ mg/dLNOMS HealthcareBlood, UANegative Negative - 50 Surjit/mcLNOMS HealthcareClarity, UAClearNOMS HealthcareColor, UA YellowNOMS HealthcareGlucose, UANegativeNegative - 2000(110) ++++ mg/dLNOMA HealthcareInterpretation and review of laboratory resultsNormalOR[facility] Healthcare Ketones, UANegativeNegative - 160(16) ++++ mg/dLNOMS HealthcareLeukocytes, UA NegativeNegative - 500+++ Kaleigh/mcLNOMA HealthcareNitrite, UANegativeNegative - PositiveNOMS HealthcarepH, UA65 - 9NOMS HealthcareProtein, UANegativeNegative - 2000(20) ++++ mg/dLNOMA HealthcareSpec Grav, UA1.0151 - 1.03NOMA Healthcare Urobilinogen, UA1.00.2 - 12 mg/dLNOMA HealthcareNOMA HealthcareUrinalysis macro (dipstick) panel (U)on 81-89-7752Ejczkqwhn, UANegativeNegative - 4(70) +++ mg/dL NOMS HealthcareBlood, UANegativeNegative - 50 Surjit/mcLNOMS HealthcareClarity, UA ClearNOMS HealthcareColor, UAYellowNOMS HealthcareGlucose, UANegativeNegative - 2000(110) ++++ mg/dLNOMA HealthcareInterpretation and review of laboratory resultsAbnormalNOMS HealthcareKetones, UANegativeNegative - 160(16) ++++ mg/dL NOMS HealthcareLeukocytes, UAPositiveNegative - 500+++ Kaleigh/mcLNOMS Healthcare Comment on above:2+Nitrite, UANegativeNegative - PositiveNOMS HealthcarepH, UA65 - 9NOMS HealthcareProtein, UANegativeNegative - 2000(20) ++++ mg/dLNOMS HealthcareSpec Grav, UA1.021 - 1.03NOMA HealthcareUrobilinogen, UA1.00.2 - 12 mg/dLBothwell Regional Health Center HealthcareALL CBC WITH AUTO DIFFon 92-64-5309ONHRRQOKG ABSOLUTE AUTO0.1NOMS HealthcareBasophils/100 WBC (Bld)0.5 %0.2 - 2.0 %NOMHca Midwest DivisionEosinophils/100 WBC (Bld)4 %0.9 - 7.0 %[facility] BransonErythrocyte distribution width (RBC) [Ratio]12.2 %11.0 - 15.0 %[facility] BransonIMMATURE GRANULOCYTES ABS AUTO0.08HighCox BransonImmature granulocytes/100 WBC (Bld) 0.6 %High0.0 - 0.5 %[facility]ansonInterpretation and review of laboratory resultsAbnormalCox BransonLYMPHOCYTES ABSOLUTE AUTO2.6NOCenterPointe Hospital Lymphocytes/100 WBC (Bld)18.4 %Low20.5 - 60.0 %[facility] HospitalH (RBC) [Entitic mass]31.5 pg26.7 - 34.0 pgColumbia Regional HospitalHC (RBC) [Mass/Vol]34.1 g/dL29.9 - 35.2 g/dLColumbia Regional HospitalV (RBC) [Entitic vol]92.4 fL81.0 - 99.0 fLCox BransonMONOCYTES ABSOLUTE AUTO0.6Cox BransonMonocytes/100 WBC (Bld)4.3 % 1.7 - 12.0 %[facility]ox BransonNEUTROPHILS ABSOLUTE AUTO10.1HighCox Branson Neutrophils/100 WBC (Bld)72.2 %43.0 - 75.0 %Cox BransonPlatelet mean volume (Bld) [Entitic vol]10.2 fL9.5 - 13.5 fLCox BransonTB EO #0.6[facility] TBH PXA251GGEHSoutheast Missouri Community Treatment Center RBC3.94LowSaint Luke's North [facility] WBC13.9HighCox BransonCLINISYNCCBC without diffon 79-81-5633Lzndonjph (Bld) [#/Vol]261 10*3/uLProMedica Memorial HospitalRb Mcv (Fl) By Automated Count92.4ProMedica Memorial HospitalDrug Screen, Urineon 00-32-0382Svyhutbgjcy/MethamphetamineNegative [facility] HospitalBarbituratesNegativeProMedica Memorial Hospital BenzodiazepinesNegativeProMedica Memorial HospitalCocaine MetaboliteNegative [facility] HospitalMethadoneNegativeProMedica Memorial HospitalOpiatesNegative [facility] HospitalOxycodoneNegativeProMedica Memorial HospitalPhencyclidine NegativeProMedica Memorial HospitalThc Marijuana, UrineNegativeProMedica Memorial HospitalHBV surface Ag IA Qlon 03-17-4210Nwccvvawn B Surface AntigenNegative Pro[facility] Memorial HospitalHCV Ab IA Qlon 59-20-9051CVQ Ab Ql (S)Non-Reactive [facility] HospitalHIV 1+2 Ab+HIV1 p24 Ag IA Qlon 08-84-3514FLJ 1&2 AB/AG Non-ReactiveProMedica Memorial HospitalHemoglobin A1con 99-75-3232LeF1o (Bld) [Mass fraction]5.1 %4.0 - 6.0 %[facility] Memorial HospitalLaboratory - Hematology and Cell countson 70-30-5506Wejvqhlvzd (Bld) [Volume fraction]36.4 %[facility] Hemoglobin (Bld) [Mass/Vol]12.4 g/dLCox BransonNo Panel Informationon 52-98-0101VXFW HealthcareRubella IGG immune statuson 93-57-1448Zsqzfro immune IgGIMMUNEProMedica Memorial HospitalT. pallidum IgG+IgM IA Ql (S)Ordered By: Christina Bertrand on 80-75-3414LyzfxqbfJft-ReactiveProMedica Memorial HospitalType and screenon 91-29-0995Unj/Rh(D)PositiveProMedica Memorial HospitalHCG ( test) Ql (U)on 18-79-9334Itrbpaghkwdlkb and review of laboratory resultsAbnormLankenau Medical Center Preg Test, UrPositiveNegativeNOCenterPointe HospitalNOMA HealthcareUS OB TRANSVAGINALon 36-80-7843ID OB TRANSVAGINALFINDINGS: A single intrauterine gestational sac [...] No LMP recorded.Urinalysis macro (dipstick) panel (U)on 39-69-4468Ztaygnqrq, UA NegativeNegative - 4(70) +++ mg/dLNOMS HealthcareBlood, UANegativeNegative - 50 Surjit/Gracie Square HospitalNOMA HealthcareClarity, UAClearNOMS HealthcareColor, UAYellowNOMS HealthcareGlucose, UANegativeNegative - 2000(110) ++++ mg/dLNOMA Healthcare Interpretation and review of laboratory resultsNormalNOMS HealthcareKetones, UA NegativeNegative - 160(16) ++++ mg/dLNOMA HealthcareLeukocytes, UANegative Negative - 500+++ Kaleigh/mcLNOMA HealthcareNitrite, UANegativeNegative - Positive NOMS HealthcarepH, UA75 - 9NOMS HealthcareProtein, UANegativeNegative - 2000(20) ++++ mg/dLNOMA HealthcareSpec Grav, UA1.0051 - 1.03NOMS HealthcareUrobilinogen, UA0.20.2 - 12 mg/dLNOMS HealthcareNOMS HealthcareALL PROGESTERONEon 01-18-2025 PROGESTERONE8.7 ng/mL.[facility] HealthcareComment on above:Follicular phase 0.1 - 0.9 Luteal phase 1.8 - 23.9 Ovulation phase 0.1 - 12.0 First trimester 11.0 - 44.3 Second trimester 25.4 - 83.3 Third trimester 58.7 - 214.0 Postmenopausal 0.0 - 0.1 Performed at: [address] [id number] Avid Editor: Yobany Blount PhD, Phone: [phone] [facility] SystemsPATHOLOGY REQUEST FOR LAB CORPon 88-90-2244CDZBZOVXZ REQUEST FOR LAB CORPNOMS HealthcareComment on above:See report. Scanned copy available in EMR.SKIN SPECIMENFIRTemple University Health SystemALL PROGESTERONEon 83-83-9176WLUNRJSNINFQ49.9 ng/mL.NOMS HealthcareComment on above:Follicular phase 0.1 - 0.9 Luteal phase 1.8 - 23.9 Ovulation phase 0.1 - 12.0 First trimester 11.0 - 44.3 Second trimester 25.4 - 83.3 Third trimester 58.7 - 214.0 Postmenopausal 0.0 - 0.1 Performed at: [address] [id number] Avid Editor: Yobany Blount PhD, Phone: [phone] [facility] SystemsPathology Request for Lab Corpon 10-50-5258Cmjopgtwc Request for Lab CorpNoNovant Health, Encompass Health Physician GroupComment on above:Order Comment: SKIN SPECIMENResult Comment: See report. Scanned copy available in EMR. PERFORMED BY: [place] [address] PATHOLOGIST ACCOUNT DEVELOPMENT REPRESENTATIVE ANAHI TRAN M.D.Performed By: #### PATH TO [facility] #### [place] [address] USAIGP,APTIMA HPV,AGE GDLNon 14-57-5561CWW GDLN ACOG TESTING Note.NOMS HealthcareComment on above:TESTS RESULT FLAG UNITS REF RANGE LAB Clinician Provided Cytology Information Source.............Cervix;Endocervix No. of containers..01 ThinPrep Vial Age Alberto FORREST Marjorie... 32 FLAG LEGEND: L-Low Normal,H-High Normal,LL-Alert Low,HH-Alert High <-Panic Low,>-Panic High,A-Abnormal,AA-Critical Abnormal Performed at: 01 =[address] [phone] oVnnie Woodard MD, HPV APTIMANegativeNegativeNOMS HealthcareComment on above:This nucleic acid amplification test detects fourteen high- risk HPV types (16,18,31,33,35,39,45,51,52,56,58,59,66,68) without differentiation. Performed at: =[address] [id number] Avid Editor: Vonnie Woodard MD, Phone: [phone] Performed at: [address] [id number] Avid Editor: Vonnie Woodard MD, Phone: [phone] IGP, APTIMA HPV, RFX 16/18,45Note.NOMS HealthcareComment on above:TESTS RESULT FLAG UNITS REF RANGE LAB DIAGNOSIS: 02 NEGATIVE FOR INTRAEPITHELIAL LESION OR MALIGNANCY. Specimen adequacy: 02 Satisfactory for evaluation. Endocervical and/or squamous metaplastic cells (endocervical component) are present. Performed by: 02 Quiana Vyas, Centrifugal Drier Operator (ASCP) . 02 Note: Note 02 The [...] <-Panic Low,>-Panic High,A-Abnormal,AA-Critical Abnormal Performed at: [address] [phone] Vonnie Woodard MD, BRUSH-SPATULA CERVIX ENDOCERVIX CLINISYNCNOCenterPointe HospitalALL PROGESTERONEon 09-98-2757RRQYJYOGHYLY11.2 ng/mL.[facility] HealthcareComment on above:Follicular phase 0.1 - 0.9 Luteal phase 1.8 - 23.9 Ovulation phase 0.1 - 12.0 First trimester 11.0 - 44.3 Second trimester 25.4 - 83.3 Third trimester 58.7 - 214.0 Postmenopausal 0.0 - 0.1 Performed at: [facility]coSaint [facility] [address] [place], [place] [id number] Avid Editor: Yobany Blount PhD, Phone: [phone] CLINISYNCNOMid [facility] AND AUTO DIFFon 74-50-3805VSDGYOIB BASOPHIL0.1 X10E9/LNormal0.0-0.2PMarietta Osteopathic ClinicComment on above:Performed By: #### CBCGavin, CMP, 99931-4, 13480-3, THYR #### [facility] ([id number]) [address] [place] [address] 73753ZEGKXFWW NEUTROPHIL6.9 X10E9/LHigh1.5-6.6ProHuntsville Memorial HospitalComment on above:Performed By: #### CBCA, [facility], , [address]190-3, THYR #### [facility] ([id number]) [address] [place] [address] 31109Njdauhfwr/100 WBC (Bld)1.1 %NormalLake County Memorial Hospital - West Comment on above:Performed By: #### CBCA, [facility], , [address]-8, THYR #### [facility] ([id number]) [address] [place] [address] 45666Yxlqydjhyoe (Bld) [#/Vol]0.3 10*3/uLNormal0.0-0.4L[facility] County Memorial Hospital - WestComment on above:Performed By: #### CBCA, [facility], , [address]-0, THYR #### [facility] ([id number]) [address] [place] [address] 32537Iwktmtbwhdr/100 WBC (Bld)2.3 %NormalLake County Memorial Hospital - West Comment on above:Performed By: #### CBCA, CMP, , 00310-5, THYR #### [facility] ([id number]) [address] [place] [address] 66488Ekkellsable distribution width (RBC) [Ratio]12.6 %Normal 11.5-15.0Lake County Memorial Hospital - WestComment on above:Performed By: #### CBCA, CMP, , 48058-6, THYR #### [facility] ([id number]) [address] [place] [address] 43208Laaeegrzku (Bld) [Volume fraction]40.4 %Nwjdtn26-23QqxCecyvzHuntsville Memorial HospitalComment on above:Performed By: #### KARSON, CMP, 63861-0, 95869-6, THYR #### [facility] ([id number]) [address] [place] [address] 53540Ardktitnyh (Bld) [Mass/Vol]13.7 g/bSRuwqez20.7-15.5PMarietta Osteopathic ClinicComment on above:Performed By: #### KARSON, CMP, 56281-0, 77008-3, THYR #### [facility] ([id number]) [address] [place] [address] 83611Ljftcgnprve (Bld) [#/Vol]3.6 10*3/uLHigh1.0-3.5PMarietta Osteopathic ClinicComment on above:Performed By: #### KARSON, CMP, 14425-3, 72211-4, THYR #### [facility] ([id number]) [address] [place] [address] 86443Rgeiryspwnl/100 WBC (Bld)31.6 %NormalLake County Memorial Hospital - West Comment on above:Performed By: #### CBCGavin, CMP, 69677-5, 05997-8, THYR #### [facility] ([id number]) [address] [place] [address] 90310JDV (RBC) [Entitic mass]30.9 wsIkycfh43-05QykYbyqzaHuntsville Memorial HospitalComment on above:Performed By: #### CBCA, CMP, 15606-6, 74277-0, THYR #### [facility] ([id number]) [address] [place] [address] 33005EGTH (RBC) [Mass/Vol]34.0 g/iHTscjet00-12VdgZfqukvLake County Memorial Hospital - WestComment on above:Performed By: #### CBCA, CMP, 45425-7, 48290-4, THYR #### [facility] ([id number]) [address] [place] [address] 87221RGG (RBC) [Entitic vol]91 iTQtiwvs03-810ZdqMublrd Fremont HospitalComment on above:Performed By: #### CBCA, CMP, 35625-6, 80582-9, THYR #### [facility] ([id number]) [address] [place] [address] 07969Qlxuembqs (Bld) [#/Vol]0.6 10*3/uLNormal0-0.9L[facility] Hospital - WestComment on above:Performed By: #### CBCA, CMP, 53042-0, 96223-1, THYR #### [facility] ([id number]) [address] [place] [address] 43014Bfrixzwdx/100 WBC (Bld)5.4 %[facility] Comment on above:Performed By: #### CBCA, CMP, 02274-5, 93677-0, THYR #### [facility] ([id number]) [address] [place] [address] 92878Olhphgylpsz/100 WBC (Bld)59.6 %[facility] Comment on above:Performed By: #### CBCA, CMP, 16922-3, 03248-6, THYR #### [facility] ([id number]) [address] [place] [address] 72349Tkalbnqr mean volume (Bld) [Entitic vol]7.9 fLNormal7-12 ProMSonora Regional Medical CenterComment on above:Performed By: #### CBCA, CMP, 86934- 9, 16072-4, THYR #### [facility] ([id number]) [address] [place] [address] 63841Sbdwklaxz (Bld) [#/Vol]346 10*3/zWZdqozo946-300LsiPpavqf Fremont HospitalComment on above:Performed By: #### KARSON, CMP, 15153-2, 93093-5, THYR #### [facility] ([id number]) [address] [place] [address] 78592LUU COUNT4.44 X10E12/LNormal3.80-5.20[facility] Comment on above:Performed By: #### KARSON, CMP, 84783-6, 74309-1, THYR #### [facility] ([id number]) [address] [place] [address] 48182KLN (Bld) [#/Vol]11.5 10*3/uLHigh4.0-11.0L[facility] County [facility] Hospital - WestComment on above:Performed By: #### KARSON, CMP, 43018-5, 85217-8, THYR #### [facility] ([id number]) [address] [place] [address] 18298HYABYPUTPEGDP METABOLIC PANELon 43-27-0821Anxlmak [Mass/Vol]4.0 g/dLNormal3.2-5.3PMarietta Osteopathic ClinicComment on above:Performed By: #### KARSON, CMP, 78627-2, 07951-2, THYR #### [facility] ([id number]) [address] [place] [address] 29208YZR [Catalytic activity/Vol]50 U/YEhbxfn71-862CutTedjzfHuntsville Memorial HospitalComment on above:Performed By: #### MATTHEWA, CMP, 96043-8, 85130-3, THYR #### [facility] ([id number]) [address] [place] [address] 99369IUW [Catalytic activity/Vol]19 U/LNormal0-31PMarietta Osteopathic ClinicComment on above:Performed By: #### LUKAS TY, 71914-8, 76573-2, THYR #### [facility] ([id number]) [address] [place] [address] 30963Kixuw gap [Moles/Vol]11 mmol/LNormal5-15ProHuntsville Memorial HospitalComment on above:Performed By: #### KARSON, LUKAS, 35885-8, 87998-8, THYR #### [facility] ([id number]) [address] [place] [address] 68143ZKU [Catalytic activity/Vol]18 U/LNormal0-41ProHuntsville Memorial HospitalComment on above:Performed By: #### LUKAS TY, 48573-8, 04803-1, THYR #### [facility] ([id number]) [address] [place] [address] 95671Hjcpxsxtg [Mass/Vol]0.4 mg/dLNormal0.3-1.2PMarietta Osteopathic ClinicComment on above:Performed By: #### LUKAS TY, 54975-4, 18534-8, THYR #### [facility] ([id number]) [address] [place] [address] 24056Jphocbu [Mass/Vol]9.4 mg/dLNormal8.5-10.5PMarietta Osteopathic ClinicComment on above:Performed By: #### KARSON, LUKAS, 12840-3, 12567-5, THYR #### [facility] ([id number]) [address] [place] [address] 36722Zqjctyxq [Moles/Vol]106 mmol/RGylmcy53-273MjgQuyhcqHuntsville Memorial HospitalComment on above:Performed By: #### LUKAS TY, 38913-8, 69697-9, THYR #### [facility] ([id number]) [address] [place] [address] 32309JB9 [Moles/Vol]23 mmol/PCkflwc44-73PmlMibwxxMarietta Osteopathic Clinic Comment on above:Performed By: #### LUKAS TY, 38352-5, 43741-2, THYR #### [facility] ([id number]) [address] [place] [address] 25048Zitnsbuplb [Mass/Vol]0.76 mg/dLNormal0.40-1.00L[facility] Hospital - WestComment on above:Result Comment: METHOD TRACEABLE TO IDMS STANDARD Performed By: #### LUKAS TY, 40627-2, 60926-6, THYR #### [facility] ([id number]) [address] [place] [address] 79546mKGU (CKD-EPI) NON-RACE DEPENDENT>90Normal>59ProHuntsville Memorial HospitalComment on above:Result Comment: Reported eGFR is based on the CKD-EPI 2020 equation that does not use a race coefficient.Performed By: #### LUKAS TY, , 57617-9, THYR #### [facility] ([id number]) [address] [place] [address] 87479Irxwqfv [Mass/Vol]114 mg/lGLyna71-31JncBtzfohLake County Memorial Hospital - West Comment on above:Performed By: #### LUKAS TY, , 13388-4, THYR #### [facility] ([id number]) [address] [place] [address] 52250Ohisfplmp [Moles/Vol]4.1 mmol/LNormal3.5-5.0L[facility] Hospital - WestComment on above:Performed By: #### LUKAS TY, 00399-7, 99485-8, THYR #### [facility] ([id number]) [address] [place] [address] 74600Ofqjjzq [Mass/Vol]7.3 g/dLNormal6.0-8.0L[facility] Hospital - WestComment on above:Performed By: #### CBCGavin, CMP, 83930-7, 57363-2, THYR #### [facility] ([id number]) [address] [place] [address] 85970Jmhzfy [Moles/Vol]140 mmol/JSgctlt847-532UnyAjjava Fremont HospitalComment on above:Performed By: #### KARSON, LUKAS, 20152-3, 33156-8, THYR #### [facility] ([id number]) [address] [place] [address] 64975Nads nitrogen [Mass/Vol]13 mg/dLNormal5-23L[facility] Hospital - WestComment on above:Performed By: #### KARSON, LUKAS, 70974-9, 48966-9, THYR #### [facility] ([id number]) [address] [place] [address] 45354Pjpkym D-dimer DDU (PPP) [Mass/Vol]on 11-04-2024D DIMER<150 Normal<255L[facility] Hospital - WestCommemorial healthcare on above:Result Comment: Results <255 ng/mL DDU: The presence of a VTE can safely be excluded with a negative D-Dimer result and Wells score. A negative result doesn't exclude the possibility of DIC. The test be repeated along with other diagnostic tests if the patient's symptoms persist or worsen. [email or web address] By: #### CBCA, CMP, 50464-0, 54891-7, THYR #### [facility] ([id number]) [address] [place] [address] 33197JAP ( test) Ql (U)on 01-49-7688Rkvw HCG ( test) Ql (U)NegativeNormalNEGProHuntsville Memorial HospitalComment on above: Performed By: #### 2106-3 #### [facility] ([id number]) [address] [place] [address], [place] [address]KOGINSHUGeh 12-42-0481Ilrqrshnq [Mass/Vol]2.3 mg/dLNormal 1.8-2.6ProHuntsville Memorial HospitalComment on above:Performed By: #### LUKAS TY, 56535-7, 06278-7, THYR #### [facility] ([id number]) [address] [place] [address], [place] [address]JYTWLBT PROFILEon 00-56-9194Eiam T4 [Mass/Vol]0.88 ng/dLNormal 0.61-1.60ProHuntsville Memorial HospitalComment on above:Performed By: #### LUKAS TY, 13793-9, 16078-9, THYR #### [facility] ([id number]) [address] [place] [address], [place] [address]XEJ9.78 uIU/mLNormal0.49-4.67ProHuntsville Memorial HospitalComment on above:Performed By: #### LUKAS TY, 79703-7, 14187-5, THYR #### [facility] ([id number]) [address] [place] [address] [place] [address]ONX MACROSCOPIC NURon 78-59-5697IZWDMSGRN NURNegativeNormalNEG ProMSonora Regional Medical CenterComment on above:Performed By: #### NUM #### [facility] ([id number]) [address] [place] [address], [place] [address]VGOFD/HGB NURTraceAbnormalNEGLake County Memorial Hospital - WestComment on above:Performed By: #### NUM #### [facility] ([id number]) [address] [place] [address], [place] [address]HJJQWVX NURNegativeNormalNEGLake County Memorial Hospital - WestComment on above:Performed By: #### NUM #### [facility] ([id number]) [address] [place] [address]CWDRCLC NURNegativeNormalNEGLake County Memorial Hospital - WestComment on above:Performed By: #### NUM #### [facility] ([id number]) [address] [place] [address] 29030TGINAQVKO ESTERASE NURSmallAbnormalNEGLake County Memorial Hospital - WestComment on above:Performed By: #### NUM #### [facility] ([id number]) [address] [place] [address]60JTQDSNG NURNegativeNormalNEGLake County Memorial Hospital - WestComment on above:Performed By: #### NUM #### [facility] ([id number]) [address] [place] [address] 36973UR NUR6.1Zfdznx2.0-8.5PMarietta Osteopathic ClinicComment on above:Performed By: #### NUM #### [facility] ([id number]) [address] [place] [address] 55716CXUYSPO NURNegativeNormalNEGLake County Memorial Hospital - WestComment on above:Performed By: #### NUM #### [facility] ([id number]) [address] [place] [address] [place] [address]NVDAYPLL GRAVITY NUR1.761Eldwhn9.003-1.035ProHuntsville Memorial HospitalComment on above:Performed By: #### NUM #### [facility] ([id number]) [address] [place] [address] 23876EUEREMAIVCYM NUR0.2 eu/dLNormal<1.1PMarietta Osteopathic Clinic Comment on above:Performed By: #### NUM #### [facility] ([id number]) [address] [place] [address] 68338HR CHEST 1 VWon 33-45-5083GF CHEST 1 VWXR CHEST 1 VW History: Palpitations Exam/Technique: Portable upright AP chest Comparison: 11/12/2022 Findings: There is no active pulmonary or pleural disease displayed. Cardiac and mediastinal contours appear within normal limits on this AP projection. IMPRESSION: No evidence of active pulmonary disease. Finalized by Tres Giron MD on 11/04/2024 1:[address] [facility] PROGESTERONEon 29-63-1381HXWAQFVDHSNR33.8 ng/mL.[facility] Comment on above:Follicular phase 0.1 - 0.9 Luteal phase 1.8 - 23.9 Ovulation phase 0.1 - 12.0 First trimester 11.0 - 44.3 Second trimester 25.4 - 83.3 Third trimester 58.7 - 214.0 Postmenopausal 0.0 - 0.1 Performed at: [facility] [employer] [id number] Avid Editor: Yobany Blount PhD, Phone: [phone] [facility] SERVICESZouxiuSaint John's Hospital PROGESTERONEon 17-31-2060NRDYVUVPDZLN03.3 ng/mL.NOM[facility] HealthcareComment on above:Follicular phase 0.1 - 0.9 Luteal phase 1.8 - 23.9 Ovulation phase 0.1 - 12.0 First trimester 11.0 - 44.3 Second trimester 25.4 - 83.3 Third trimester 58.7 - 214.0 Postmenopausal 0.0 - 0.1 Performed at: [facility] [employer] [id number] Avid Editor: Yobany Blount PhD, Phone: [phone] [facility] PROGESTERONEon 68-48-5035RKWAKQUJOHVV6.5 ng/mL.[facility] HealthcareComment on above:Follicular phase 0.1 - 0.9 Luteal phase 1.8 - 23.9 Ovulation phase 0.1 - 12.0 First trimester 11.0 - 44.3 Second trimester 25.4 - 83.3 Third trimester 58.7 - 214.0 Postmenopausal 0.0 - 0.1 Performed at: [facility] [employer] [id number] Avid Editor: Yobany Blount PhD, Phone: [phone] [facility] SERVICESSphere FluidicsSkyline Medical Center PROGESTERONEon 26-16-0422TGBGWACUNQFS54.8 ng/mL.[facility] HealthcareComment on above:Follicular phase 0.1 - 0.9 Luteal phase 1.8 - 23.9 Ovulation phase 0.1 - 12.0 First trimester 11.0 - 44.3 Second trimester 25.4 - 83.3 Third trimester 58.7 - 214.0 Postmenopausal 0.0 - 0.1 Performed at: [facility] [address] [id number] Avid Editor: oYbany Blount PhD, Phone: [phone] [facility] CBC WITH AUTO DIFFon 36-41-2980AMSPDWWMB ABSOLUTE AUTO0.1NOMS HealthcareBasophils/100 WBC (Bld)0.6 %0.2 - 2.0 %[facility] Eosinophils/100 WBC (Bld)2.8 %0.9 - 7.0 %NOM HealthcareErythrocyte distribution width (RBC) [Ratio]12.1 %11.0 - 15.0 %NOM HealthcareHematocrit (Bld) [Volume fraction]40.6 %36.0 - 48.0 %Cox BransonHemoglobin (Bld) [Mass/Vol]13.5 g/dL 12.0 - 16.0 g/dLCox BransonIMMATURE GRANULOCYTES ABS AUTO0.02NOMS [facility] Immature granulocytes/100 WBC (Bld)0.3 %0.0 - 0.5 %NOMHca Midwest DivisionLYMPHOCYTES ABSOLUTE AUTO1.8NOMS HealthcareLymphocytes/100 WBC (Bld)23.0 %20.5 - 60.0 %[facility] HospitalH (RBC) [Entitic mass]30.6 pg26.7 - 34.0 pgNOSouthPointe HospitalHC (RBC) [Mass/Vol]33.3 g/dL29.9 - 35.2 g/dLCox BransonMCV (RBC) [Entitic vol]92.1 fL 81.0 - 99.0 fLNOCenterPointe HospitalMONOCYTES ABSOLUTE AUTO0.5NOMS [facility] Monocytes/100 WBC (Bld)6.6 %1.7 - 12.0 %NOM HealthcareNEUTROPHILS ABSOLUTE AUTO 5.3NOMS HealthcareNeutrophils/100 WBC (Bld)66.7 %43.0 - 75.0 %NOMS [facility] Platelet mean volume (Bld) [Entitic vol]9.8 fL9.5 - 13.[address] [facility] EO #0.2[facility] HospitalTBH [id number] [facility] RBC4.41[facility]S [facility] WBC8.0 NOMS HealthcareCLINISYNCNOMS HealthcareUS PELVIS W/ TRANSVAGINALon [id number], [place] [address] Ultrasound Report Signed Patient: ELLEN RAMIRES MR#: [id number] : 1990 Acct:[id number] Age/Sex: 34 / F ADM Date: 04/24/24 Loc: US Attending Dr: Caesar Broderick D.O. Ordering Physician: Caesar Broderick D.O. Date of Service: 04/24/24 Procedure(s): US pelvis w/ transvaginal Accession Number(s): [id number] cc: Caesar Broderick D.O.; Sabiha Aviles [place] [address] Patient Name: ELLEN RAMIRES MRN: [id number] date: 1990 Sex: F Assigned Patient Location: US Current Patient Location: Accession/Order Number: [id number] Exam Date: 04/24/2024 14:00 Report Date: 04/25/2024 [...] Dean M.D. Signed By: 04/25/2437 DD/ TD/TT: Conference Assistant:TBHRadiology, Radiologist, - 04/25/2024 [place] [address] Ultrasound Report Signed Patient: ELLEN RAMIRES MR#: [id number] : 1990 Acct:[id number] Age/Sex: 34 / F ADM Date: 04/24/24 Loc: US Attending Dr: Caesar Broderick D.O. Ordering Physician: Caesar Broderick D.O. Date of Service: 04/24/24 Procedure(s): US pelvis w/ transvaginal Accession Number(s): [id number] cc: Caesar Broderick D.O.; Sabiha Aviles [employer] [facility] [place] [id number] Patient Name: ELLEN RAMIRES MRN: [id number] date: 1990 Sex: F Assigned Patient Location: Current Patient Location: Accession/Order Number: [id number] Exam Date: 04/24/2024 14:00 Report Date: 04/25/2024 [...] M.D. Signed By: 04/25/2437 DD/ 3 TD/TT: Conference Assistant: [facility] BransonRadiology Study observation (narrative)[facility] BransonUS PELVIS W/ TRANSVAGINALOrdered By: Radiologist Radiology on [id number] Branson Work Phone: aLL CBC WITH AUTO DIFFon [id number] ABSOLUTE AUTO0.1NOMS HealthcareBasophils/100 WBC (Bld)0.5 %0.2 - 2.0 %[facility] Eosinophils/100 WBC (Bld)2.8 %0.9 - 7.0 %[facility] BransonErythrocyte distribution width (RBC) [Ratio]12.0 %11.0 - 15.0 %[facility] BransonHematocrit (Bld) [Volume fraction]39.7 %36.0 - 48.0 %[facility] BransonHemoglobin (Bld) [Mass/Vol]13.4 g/dL 12.0 - 16.0 g/dLCox BransonIMMATURE GRANULOCYTES ABS AUTO0.03NOCenterPointe Hospital Immature granulocytes/100 WBC (Bld)0.3 %0.0 - 0.5 %[facility] BransonInterpretation and review of laboratory resultsAbnormalNOCenterPointe HospitalLYMPHOCYTES ABSOLUTE AUTO2.9[facility] HospitalLymphocytes/100 WBC (Bld)24.4 %20.5 - 60.0 %[facility] ([facility]) [Entitic mass]30.7 pg26.7 - 34.0 pgColumbia Regional HospitalHC (RBC) [Mass/Vol]33.8 g/dL29.9 - 35.2 g/dLColumbia Regional HospitalV (RBC) [Entitic vol]91.1 fL 81.0 - 99.0 [facility] HealthcareMONOCYTES ABSOLUTE AUTO0.6[facility] Monocytes/100 WBC (Bld)5.2 %1.7 - 12.0 %[facility] HealthcareNEUTROPHILS ABSOLUTE AUTO 8.0HighNOMA HealthcareNeutrophils/100 WBC (Bld)66.8 %43.0 - 75.0 %[facility] HealthcarePlatelet mean volume (Bld) [Entitic vol]10.1 fL9.5 - 13.5 fLCox BransonTBH EO #0.3NOMS HealthcareTB CWN247HWOV [facility] RBC4.36[facility] HospitalTBH WBC12.0HighNOMA HealthcareCLINISYNCNOMS HealthcarePOCT EKGOrdered By: Sheyla Powell on 97-07-8178ZcyFocbhcKettering Health MiamisburgNo Panel Information Ordered By: Pinky Singh on 29-49-2926Nqlwx Strep (POC)[facility] CenterCytology Cervical or vaginal smear or scraping studyon 11-19-2022 [facility] HealthcareCOVID/FLU/RSV RT-PCRon 89-55-3139OECG-CoV-2 (COVID-19) RNA PEACE+probe Ql (Unsp spec)PositiveNort [facility] Other COVID/FLU/RSV RT-PCRNegativeNort [place] Other Vital Signs Date TimeVital SignValuePerforming FsqutvpfcWvqknrhr62-86-3698 13:42-0500Body mass index (BMI) [Ratio]43.33 kg/p2Qkpsq Davie DO Work Phone: [facility]ansonUhmzlrcywg76-88-1838 13:42-0500Body .28 kgCorey Davie DO Work Phone: [facility]OCenterPointe HospitalFcqfvfmoly88-48-0200 13:42-0500Diastolic blood lbxvavpi37 mm[Hg]Caesar Davie DO Work Phone: [phone])229-[address] [place], [place] [address]Eildprzkdc88-69-3505 13:42-0500Systolic blood ceyknrsk443 mm[Hg]Caesar Davie DO Work Phone: 1(419)[address] [place], [place] 7923910-15-2025 09:03-0400Diastolic blood lgxlqvyu49 mm[Hg]Rody Uyen [employer] Work Phone: 1(419)[facility] [place], [place] [address]Hujsgomjts30-29-9567 09:03-0400Systolic blood opgcgpbq296 mm[Hg]Rody Uyen [employer] Work Phone: 1(419)[address] [place] [address]-15-2025 09:02-0400Body mass index (BMI) [Ratio]42.99 kg/x5Uvrjdblt Uyen [employer] Work Phone: 1(112)[address] [place], [place] 7923910-15-2025 09:02-0400Body oavgol153.25 kgKristina Uyen [employer] Work Phone: 1(419)[address] [place], [place] 7923910-09-2025 16:31-0400Body mass index (BMI) [Ratio]43.49 kg/u8Yrhnwqqp Uyen [employer] Work Phone: 1(596)[address] [place], [place] 7923910-09-2025 16:31-0400Body aikhhf599.73 kgKristina Uyen [employer] Work Phone: 1(347)[facility] [place], [place] [address]Avdloyqnsd05-66-5687 16:31-0400Diastolic blood luqquajq60 mm[Hg]Rody Uyen [employer] Work Phone: 1(419)[address] [place], [place] 7923910-09-2025 16:31-0400Systolic blood lhqeiffe782 mm[Hg]Rody Uyen [employer] Work Phone: 1(810)[address] [place], [place] 7923910-02-2025 15:07-0400Body mass index (BMI) [Ratio]43.03 kg/f6Ucersici Uyen [employer] Work Phone: 1(419)[address] [place], [place] 7923910-02-2025 15:07-0400Body hekgyn778.37 kgKristina Uyen [employer] Work Phone: 1(769)[address] [place], [place] 7923910-02-2025 15:07-0400Diastolic blood kuuwucnj93 mm[Hg]Rody Qiu [employer] Work Phone: 1(272)[address] [place], [place] 7923910-02-2025 15:07-0400Systolic blood ayiotuyu580 mm[Hg]Rody Qiu [employer] Work Phone: 1(419)[address] [place], [place] 7923909-26-2025 07:51-0400Body .7 cmYordy Cruz MD Work Phone: 1(419)[address] [place], [place] 7216009-26-2025 07:51-0400Body mass index (BMI) [Ratio]42.96 kg/m2Yordy Cruz MD Work Phone: 1(419)[address] [place], [place] 7216009-26-2025 07:51-0400Body viqihy093.14 kgYordy Cruz MD Work Phone: 1(419)[address] [place], [place] 7216009-26-2025 07:51-0400Diastolic blood gzizluyz05 mm[Hg]Yordy Cruz MD Work Phone: 1(419)[address] [place], [place] 7216009-26-2025 07:51-0400Heart rate 87 /Glenna Cruz MD Work Phone: 1(419)[address] [place], [place] 7216009-26-2025 07:51-0400Systolic blood mvhpcaws285 mm[Hg]Yordy Cruz MD Work Phone: 1(482)[address] [place], [place] 7216009-04-2025 11:30-0400Body mass index (BMI) [Ratio]42.88 kg/k9Lddpn Davie DO Work Phone: 1(002)[facility] [place], [place] [address]Hvlnlbjbxd47-45-6817 11:30-0400Body ejyxrp768.91 kgCorey Davie DO Work Phone: 1(747)[address] [place], [place] 7923909-04-2025 11:30-0400Diastolic blood wnaiinhr26 mm[Hg]Caesar Davie DO Work Phone: 1(021)[address] [place], [place] 7923909-04-2025 11:30-0400Systolic blood bwprwwda791 mm[Hg]Caesar Davie DO Work Phone: 1(104)[address] [place], [place] 7923908-21-2025 11:00-0400Body mass index (BMI) [Ratio]42.63 kg/l2Pcguz Davie DO Work Phone: 1(551)632-[address] [place], [place] [address]Tznqtrivxe28-71-5035 11:00-0400Body mehwou811.19 kgCorey Davie DO Work Phone: 1(623)056-[address] [place], [place] [address]Klluxlcsln07-78-5747 11:00-0400Diastolic blood lqzrscfa54 mm[Hg]Caesar Davie DO Work Phone: 1(826)701-[address] [place], [place] [address]Oupljxrnwo65-13-1245 11:00-0400Systolic blood lrormuze269 mm[Hg]Caesar Davie DO Work Phone: 1(912)456-[address] [place], [place] [address]Ngzwdzksdd76-51-5006 11:42-0400Body mass index (BMI) [Ratio]42.29 kg/j6Isaci Davie DO Work Phone: 1(566)367-[address] [place], [place] [address]Xtxqyflixd39-35-6566 11:42-0400Body .15 kgCorey Davie DO Work Phone: 1(714)915-[address] [place], [place] [address]Qywsdyofel09-34-7546 11:42-0400Diastolic blood ulbnabqj45 mm[Hg]Caesar Davie DO Work Phone: 1(885)251-[address] [place], [place] [address]Hxskupoymb79-77-8585 11:42-0400Systolic blood gkergidz468 mm[Hg]Caesar Davie DO Work Phone: 1(926)806-[address] [place], [place] [address]Lfeqheufcg76-86-8190 10:03-0400Body mass index (BMI) [Ratio]41.66 kg/q3[facility]uu[facility]07-11-2025 10:03-0400Body weight 124.29 kgAm[facility]07-11-2025 10:03-0400Diastolic blood mm[Hg][facility]07-11-2025 10:03-0400Systolic blood nzjzifuz209 mm[Hg][facility]05-15-2025 10:52-0400Body awcenf094.7 Gilmer Lopez MD Work Phone: [facility]05-15-2025 10:52-0400 Body mass index (BMI) [Ratio]40.84 kg/t8BzghmeRobbie Lopez MD Work Phone: 1(216)[address] [place], [place] 9253905-15-2025 10:52-0400 Body izuciufiuml12.81 [degF]Robbie Lopez MD Work Phone: 1(216)[address] [place], [place] 9253905-15-2025 10:52-0400 Body imujml481.84 kgRobbie Lopez MD Work Phone: 1(216)[address] [place], [place] 9253905-15-2025 10:52-0400 Diastolic blood iblarmsv65 mm[Hg]Robbie Lopez MD Work Phone: 1(216)[address] [place], [place] 9253905-15-2025 10:52-0400 Heart rate73 /minRobbie Lopez MD Work Phone: 1(216)[address] [place], [place] 9253905-15-2025 10:52-0400 Systolic blood duvegewo512 mm[Hg]Robbie Lopez MD Work Phone: 1(216)[address] [place], [place] 9253904-29-2025 13:38-0400 Body mass index (BMI) [Ratio]40.35 kg/g1Sqotf Davie DO Work Phone: 1(052)800-[address] [place], [place] [address]Kcqkyxvtlo68-61-1771 13:38-0400Body mihxod560.39 kgCorey Davie DO Work Phone: 1(535)202-[address] [place], [place] [address]Bvnmajhfxa23-35-5902 13:38-0400Diastolic blood coxivmdp80 mm[Hg]Caesar Davie DO Work Phone: 1(854)639-[address] [place], [place] [address]Ydihjvijhp63-03-4446 13:38-0400Systolic blood kkcozovo807 mm[Hg]Caesar Davie DO Work Phone: 1(658)844-[address] [place], [place] [address]Gcxnwuolwv13-82-3329 14:36-0400Body mass index (BMI) [Ratio]40.75 kg/d1Epqjh Davie DO Work Phone: 1(727)897-[address] [place], [place] [address]Oehcyxopma11-15-5261 14:36-0400Body jemmzl226.56 kgCorey Davie DO Work Phone: 1(563)835-[address] [place] [address]-21-2025 14:36-0400Diastolic blood bzyzhgoj33 mm[Hg]Caesar Davie DO Work Phone: 1(970)464-[address] [place], [place] [address]Nrfgkovluw75-53-9749 14:36-0400Systolic blood zbupcgxw518 mm[Hg]Caesar Davie DO Work Phone: 1(302)[facility] [place], [place] [address]Ninkfchzey39-52-8695 14:03-0400Diastolic blood bazikgav66 mm[Hg]Caesar Davie DO Work Phone: 1(478)[facility] [place], [place] [address]Phwrkxdali09-17-8964 14:03-0400Systolic blood ipndcika258 mm[Hg]Caesar Davie DO Work Phone: 1(527)[facility] [place], [place] [address]Gcryxyljig09-96-3966 13:12-0500Body mass index (BMI) [Ratio]40.01 kg/q3Ldmjh Davie DO Work Phone: 1(232)[facility] [place], [place] [address]Eswqjdlnwa03-94-6781 13:12-0500Body lplfzi753.35 kgCorey Davie DO Work Phone: 1(671)[facility] [place], [place] [address]Lqbstedfhi89-82-1194 13:12-0500Diastolic blood iagizrbj80 mm[Hg]Caesar Davie DO Work Phone: 1(747)[facility] [place], [place] [address]Ormwjgawbs10-56-2784 13:12-0500Systolic blood engdtocu238 mm[Hg]Caesar Davie DO Work Phone: 1(106)[facility] [place], [place] [address]Qbcdipbnpl61-28-0781 14:39-0400Body znowfi915.7 cmCorey Davie DO Work Phone: 1(972)[facility] [place], [place] [address]Bnkadbumci79-85-1155 14:39-0400Body mass index (BMI) [Ratio]39.53 kg/x8Mqilc Davie DO Work Phone: 1(500)[facility] [place], [place] [address]Rguwnrqrgt07-54-1085 14:39-0400Body awfpdt752.94 kgCorey Davie DO Work Phone: 1(561)[facility] [place], [place] [address]Mgheftcfsd80-60-2606 14:39-0400Diastolic blood cpqebzln57 mm[Hg]Caesar Davie DO Work Phone: 1(040)[address] [place], [place] 7923910-21-2024 14:39-0400Systolic blood zuxtkaua060 mm[Hg]Caesar Davie DO Work Phone: [facility]ansonWkpvezsucx76-97-0805 11:39-0400Body .84 kgCorey Davie DO Work Phone: [facility]ansonFwsaqaelnz88-96-5008 11:39-0400Diastolic blood mkilgdcp42 mm[Hg]Caesar Davie DO Work Phone: [facility] BransonAmjwwmxdhn44-64-1867 11:39-0400Systolic blood mm[Hg]Caesar Davie DO Work Phone: 1(714)337-[address] [place], [place] [address]Rgenozkqiw63-82-7299 09:36-0400Body bictkn104.57 kgCorey Davie DO Work Phone: [facility] BransonDeyalswgrn04-38-8145 09:36-0400Diastolic blood mm[Hg]Caesar Davie DO Work Phone: 1(619)433-[address] [place], [place] [address]Gmevzjyfjl14-10-0775 09:36-0400Systolic blood sjwftawa473 mm[Hg]Caesar Davie DO Work Phone: 1(852)380-[address] [place], [place] [address]Vkydjhugaf34-86-1133 10:50-0400Body ekkvvj292.7 Ji Fraire MD Work Phone: [facility]07-23-2024 10:50-0400Body mass index (BMI) [Ratio]40.66 kg/n2VvaqumJames Fraire MD Work Phone: 1(749)424-[address] [place], [place] 7901407-23-2024 10:50-0400Body expzec258.29 kgJames Fraire MD Work Phone: [facility]07-23-2024 10:50-0400Diastolic blood dkfpuehi08 mm[Hg]James Fraire MD Work Phone: [facility]07-23-2024 10:50-0400Heart rate 83 /minJames Fraire MD Work Phone: [facility]07-23-2024 10:50-1980NyV3% (BldA) [Mass fraction]98 %James Fraire MD Work Phone: [facility]07-23-2024 10:50-0400Systolic blood tefnrwim777 mm[Hg]James Fraire MD Work Phone: [facility]04-04-2024 12:26-0400Body ytvenu275.72 cmOhio[facility]04-04-2024 12:26-0400Body mass index (BMI) [Ratio]42.6 kg/b6CzrptnggoOhiohealth Nelsonville Health Center04-04-2024 12:26-0400Body gryeeszxart54.3 [degF][facility]04-04-2024 12:26-0400Body wybxkl834.11 kgOhiohealth [facility] Health Center04-04-2024 12:26-0400Diastolic blood oqghgnkj34 mm[Hg][facility] 11-24-2023 12:26-0400Heart rate75 /[facility] 11-24-2023 12:26-0400Respiratory rate18 /[facility] 11-24-2023 12:26-9718NgW7% (BldA) [Mass fraction]98 %[facility]04-04-2024 12:26-0400Systolic blood zkmwoucg299 mm[Hg][facility]02-20-2023 11:35-0500Body .72 Glendy Singh Other [employer] Other 02-20-2023 11:35-0500Body mass index (BMI) [Ratio] 42.27 kg/b3YbfqjxPinky Singh Other [employer] Other 02-20-2023 11:35-0500Body qpqkviidhog83.8 [degF]Pinky Singh Other [employer] Other 02-20-2023 11:35-0500Body .1 kgPinky Singh Other noCleeng Other 02-20-2023 11:35-0500Respiratory rate18 /minPinky Singh Other noCleeng Other 02-20-2023 11:35-7187YlE1% (BldA) [Mass fraction]98 % Pinky Singh Other noCleeng Other Encounters Encounter DateEncounter TypeCare ProviderFacilityStart: 06-24-2025 End: 67-27-6565Acyyqr flowsheetCorey Davie DO Work Phone: NOMI [facility] OBGYNStart: 06-24-2025 End: 63-12-7803Ivlmts flowsheetCorey Davie DO Work Phone: NOQR [facility] OBGYNStart: 06-24-2025 End: 07-65-8092Enncsc outpatient visit 15 minutesCorey Davie DO Work Phone: noms Luana OBGYNComment on above:Second trimester ([facility]); 25 weeks gestation of ([facility]); H/O pre-eclampsia in prior , currently ([facility]); Vitamin D deficiency; Chronic hypertension affecting ([facility]); Diabetes mellitus screeningStart: 06-24-2025 End: 19-82-7331oovhuozkhnINNSE FAZIONot AvailableStart: 06-18-2025 End: 31-99-1492Zmqqmw outpatient visit 25 minutesYordy Cruz MD Work Phone: [phone]-Ooruu [facility] Comment on above:Chronic hypertension affecting (Primary Dx); 20 weeks gestation of ; Anxiety disorder affecting , antepartum; Acute palmoplantar pustular psoriasis; Severe obesity due to excess calories affecting , antepartum ([facility]) Start: 06-18-2025 End: 61-87-3648wbgiglzuirPAG [facility] HospitalStart: 06-18-2025 End: 85-26-2146kvurmdxbipUKOEA [facility] HospitalStart: 06-05-2025 End: 22-64-9364Dfanfv flowsMark Qiu [employer] Work Phone: NOMS [facility] OBGYNStart: 06-05-2025 End: 66-68-3844Hyfyvp flowsMark Qiu [employer] Work Phone: NOMS [facility] OBGYNStart: 06-05-2025 End: 34-75-7411Padobkxv flow Karel Qiu [employer] Work Phone: NOMS Aman OBGYNComment on above:Second trimester ([facility]); 23 weeks gestation of ([facility])Start: 06-05-2025 End: 65-65-2676yhxjkiyrwrTHGIIEEM UYENNot AvailableStart: 05-30-2025 End: 44-28-0550Kfhtwqgp flow Karel Qiu [employer] Work Phone: NOMS Luana OBGYNComment on above:Chronic hypertension affecting ([facility]) (Primary Dx); Second trimester ([facility]); 22 weeks gestation of ([facility])Start: 05-30-2025 End: 57-33-2012lrzuzowospWDERLCEA UYENNot AvailableStart: 05-30-2025 End: 46-21-0739Xktsmo flowsMark Qiu [employer] Work Phone: NOMS [facility] OBGYNStart: 05-30-2025 End: 33-42-6027Lznupl flowsMark Qiu [employer] Work Phone: NOMS [facility] OBGYNStart: 05-24-2025 End: 46-91-6049Mlofjs OnlyAmy Nikkie LPNMaternal- Medicine at [facility] CenterComment on above:Acute palmoplantar pustular psoriasis (Primary Dx); Chronic hypertension affecting ; Severe obesity due to excess calories affecting , antepartum ([facility]); Hypertension affecting in second trimesterStart: 05-23-2025 End: 51-38-7312odhdrhzbcsYHQYGENS EBERLYNot AvailableStart: 05-23-2025 End: 98-60-7355Tuyyxbki flow Karel Qiu NP Work Phone: NOQU [facility]man OBGYNComment on above:Second trimester ([facility]); 21 weeks gestation of ([facility]); induced hypertension, antepartum ([facility]); Vitamin D deficiency; H/O pre-eclampsia in prior , currently ([facility])Start: 05-23-2025 End: 81-13-9128Qmdtkh Jennyfer Qiu NP Work Phone: NOWR [facility]ana OBGYNStart: 05-23-2025 End: 85-33-4923Osxwoa Jennyfer Qiu NP Work Phone: NOQR [facility]ana OBGYNStart: 05-23-2025 End: 18-10-1496Rjlptoguz Result EncounterCorey Davie DO Work Phone: noms External Department UnsolicitedStart: 05-17-2025 End: 29-45-7058Rclqtk consultation new/estab patient 62 Hannah Hare MD Work Phone: [phone]-Wjpkz [facility] Comment on above:Chronic hypertension affecting (Primary Dx); Acute palmoplantar pustular psoriasis; Severe obesity due to excess calories affecting , antepartum ([facility]); 20 weeks gestation of pregnancyStart: 05-17-2025 End: 81-28-8882Avupof OnlyAmy Nikkie LPNMaternal- Medicine at [facility] CenterComment on above:Acute palmoplantar pustular psoriasis (Primary Dx); Chronic hypertension affecting ; Severe obesity due to excess calories affecting , antepartum ([facility]); Hypertension affecting in second trimesterStart: 04-29-2025 End: 02-27-8442Ovmintemo department patient visitCOMMUNOHIOHEALTH HEALTH SERVICES [facility] Centertart: 04-25-2025 End: 81-50-4079Lqavls flowsheetCorey Davie DO Work Phone: noMS [place] OBGYNStart: 04-25-2025 End: 47-22-6784Tigykc flowsheetCorey Davie DO Work Phone: noMS [place] OBGYNStart: 04-25-2025 End: 40-24-0602Jqvmog outpatient visit 15 minutesCorey Davie DO Work Phone: noms Aman OBGYNComment on above:Screening, , for anatomic survey ([facility]); Second trimester ([facility]); 17 weeks gestation of ([facility]); Screen for STD (sexually transmitted disease); Need for maternal serum alpha-protein (MSAFP) screening ([facility]); induced hypertension, antepartum ([facility]); Vitamin D deficiencyStart: 04-25-2025 End: 43-06-0181azvzsizklmSTRHY FAZIONot AvailableStart: 04-23-2025 End: 58-08-6388Jhklx [place] Cruz MD Work Phone: [phone]-Jajfq [facility] Start: 04-21-2025 End: 32-38-5100Aheaqmaef Result EncounterCorey Davie DO Work Phone: noms External Department UnsolicitedStart: 04-21-2025 End: 99-77-5382Vqsdwmiom Result EncounterCorey Davie DO Work Phone: noms External Department UnsolicitedStart: 04-19-2025 End: 27-31-0989MmumszBettina Moise RNMaternal- Medicine at [facility] CenterComment on above:Hypertension affecting in second trimester (Primary Dx)Start: 04-17-2025 End: 24-06-8294Qqnokxqzn Result EncounterCorey Davie DO Work Phone: noms External Department UnsolicitedStart: 04-17-2025 End: 63-23-7532Rxmjlqsxl Result EncounterCorey Davie DO Work Phone: no External Department UnsolicitedStart: 04-11-2025 End: 02-41-7639Boxhua flowsheetCorey Davie DO Work Phone: NOMS [place] OBGYNStart: 04-11-2025 End: 25-29-1873Rnbbhf flowsheetCorey Davie DO Work Phone: NO [facility]ana OBGYNStart: 04-11-2025 End: 80-84-2458Gkwhwp outpatient visit 15 minutesCorey Davie DO Work Phone: NOMS [place] OBGYNComment on above:15 weeks gestation of ([facility]); Second trimester ([facility]); Acute nonintractable headache, unspecified headache type; BP check; Gestational hypertension, antepartum ([facility]); induced hypertension, antepartum ([facility])Start: 04-11-2025 End: 08-54-4268Dbqezno encounter statusCorey Davie DO Work Phone: NO HealthcareStart: 04-11-2025 End: 79-91-7926achsosbqcdLOVSH FAZIONot AvailableStart: 03-28-2025 End: 11-16-2878Jwiqas flowsheetCorey Davie DO Work Phone: NO [facility] OBGYNStart: 03-28-2025 End: 45-18-1670Hxldxb flowsheetCorey Davie DO Work Phone: no [facility]ana OBGYNStart: 03-28-2025 End: 12-59-8426Uiivss outpatient visit 15 minutesCorey Davie DO Work Phone: NOMS [place] OBGYNComment on above:13 weeks gestation of ([facility]); Second trimester ([facility]); Acute nonintractable headache, unspecified headache typeStart: 03-28-2025 End: 18-01-7722jbavxuwcnuYBAKN FAZIONot AvailableStart: 03-20-2025 End: 40-75-8762Epzgxlbki Result EncounterCorey Davie DO Work Phone: noms External Department UnsolicitedStart: 03-20-2025 End: 77-07-9120Ypjybxyii Result EncounterCorey Davie DO Work Phone: noms External Department UnsolicitedStart: 03-01-2025 End: 68-68-4521Loacxj outpatient visit 5 minutesFazio Nurse Noms Bcp ObNOMS BCP OBStart: 03-01-2025 End: 90-80-4895psowqjfgzyXYHQY FAZIONot AvailableStart: 01-16-2025 End: 53-75-8381Rbpzmoasv Result EncounterCorey Davie DO Work Phone: noms External Department UnsolicitedStart: 01-16-2025 End: 65-61-0787Sdjcyjbwg Result EncounterCorey Davie DO Work Phone: noms External Department UnsolicitedStart: 01-03-2025 End: 20-53-7610Sjdvakx encounter procedureRobbie Lopez MD Work Phone: Steve JaneComment on above:Encounter for preprocedural laboratory examination (Primary Dx); Abnormal uterine bleedingStart: 01-03-2025 End: 81-65-8499Sfydjyk encounter statusRobbie Lopez MD Work Phone: [facility] Work Phone: Start: 01-03-2025 End: 46-80-6022ymwqhhwuyeOCOBZI S [facility] Centertart: 01-03-2025 End: 89-44-2056Thzrebbub for preprocedural laboratory examinationROBBIE Tapia [facility] Centertart: 12-18-2024 End: 90-20-5876Xnuacinj Result EncounterCorey Davie DO Work Phone: NOMS External Department UnsolicitedStart: 12-18-2024 End: 15-92-3057Vxihhhry Result EncounterCorey Davie DO Work Phone: noMS External Department UnsolicitedStart: 12-18-2024 End: 32-21-4450Qocharu encounter procedureCorey Davie DO Work Phone: noms BCP OBComment on above:Skin moleStart: 12-18-2024 End: 49-81-5506nqdgimqgyhQznas [facility]FiB[facility] Work Phone: Start: 12-18-2024 End: 72-86-2009Gmxrhgxu ReferredCorey Davie DO Work Phone: [facility] Path Spec Aman HospStart: 12-17-2024 End: 80-05-1391Rmwudyyoh Result EncounterCorey Davie DO Work Phone: NOMS External Department UnsolicitedStart: 12-17-2024 End: 46-40-6146Byxivgxys Result EncounterCorey Davie DO Work Phone: noms External Department UnsolicitedStart: 12-10-2024 End: 30-86-8622Pyvaqht encounter procedureCorey Davie DO Work Phone: noms HealthcareStart: 12-10-2024 End: 05-03-9465Pcumhnog preventive med est patient 18-39 yrsCorey Davie DO Work Phone: NOMS BCP OBComment on above:Well woman exam with routine gynecological examStart: 12-10-2024 End: 34-58-8803pzjutohqpsUYZHR FAZIONot AvailableStart: 12-10-2024 End: 40-62-3311Dssweq flowsheetCorey Davie DO Work Phone: [facility] OBStart: 12-10-2024 End: 23-95-8715Nulkaz flowsheetCorey Davie DO Work Phone: [facility] OBStart: 12-10-2024 End: 34-80-1645Ogkgkawnv Result EncounterCorey Davie DO Work Phone: [facility] Department UnsolicitedStart: 11-16-2024 End: 97-81-7823Fpoixpsvc Result EncounterCorey Davie DO Work Phone: [facility] UnsolicitedStart: 11-16-2024 End: 62-45-1193Uandzjyqw Result EncounterCorey Davie DO Work Phone: [facility] Department UnsolicitedStart: 11-12-2024 End: 06-93-4938Xmvkhs outpatient visit 15 minutesCorey Davie DO Work Phone: [facility] OBComment on above:Encounter for fertility planning; Acute cystitis without hematuria; PCOS (polycystic ovarian syndrome); Fallopian tube disorderStart: 11-12-2024 End: 44-53-1509Bsyduj flowsheetCorey Davie DO Work Phone: [facility] OBStart: 11-12-2024 End: 37-10-5046Gxafza flowsheetCorey Davie DO Work Phone: [facility] OBStart: 11-12-2024 End: 92-39-8912kumcyfrnbwQGHYP FAZIONot AvailableStart: 11-03-2024 End: 96-91-9881Wvkhkuwri department patient visitCOMMUNOHIOHEALTH [facility] HospitalStart: 10-18-2024 End: 01-68-4839Ahgsprmga Result EncounterCorey Davie DO Work Phone: [facility] Department UnsolicitedStart: 10-18-2024 End: 33-58-8385Ylzfjwzdh Result EncounterCorey Davie DO Work Phone: [facility] Department UnsolicitedStart: 09-17-2024 End: 97-15-3367Oswcgmkyr Result EncounterCorey Davie DO Work Phone: noms External Department UnsolicitedStart: 09-17-2024 End: 94-26-6847Ybcszimwk Result EncounterCorey Davie DO Work Phone: noms External Department UnsolicitedStart: 08-16-2024 End: 25-48-6756Ichzkngoy Result EncounterCorey Davie DO Work Phone: noms External Department UnsolicitedStart: 08-16-2024 End: 99-42-1020Nnjxxfvsn Result EncounterCorey Davie DO Work Phone: noms External Department UnsolicitedStart: 07-23-2024 End: 60-54-2553Swtqwo flowsheetCorey Davie DO Work Phone: noms BCP OBStart: 07-23-2024 End: 14-66-9662Ogtblj flowsheetCorey Davie DO Work Phone: NOAK BCP OBStart: 07-23-2024 End: 96-70-3278aofczyssbdQWQHY FAZIONot AvailableStart: 07-23-2024 End: 72-95-6090Faraol outpatient visit 15 minutesCorey Davie DO Work Phone: noms [facility] OBComment on above:PCOS (polycystic ovarian syndrome); Encounter for fertility planningStart: 07-18-2024 End: 79-56-0176Votmyazjl Result EncounterCorey Davie DO Work Phone: noms External Department UnsolicitedStart: 07-18-2024 End: 50-76-5309Qravtkkbd Result EncounterCorey Davie DO Work Phone: NOWI External Department UnsolicitedStart: 06-11-2024 End: 81-36-9047Vanleh follow up visit related to original pxCorey Davie DO Work Phone: NOXZ [facility] OBComment on above:Postoperative visit; S/P laparoscopic procedureStart: 06-11-2024 End: 28-65-0623Cwyfet flowsheetCorey Davie DO Work Phone: noms BCP OBStart: 06-11-2024 End: 71-86-0881Bxkijw flowsheetCorey Davie DO Work Phone: NOTO BCP OBStart: 06-01-2024 End: 05-24-6385Vqkvgwmpm Result EncounterCorey Davie DO Work Phone: NOSO External Department UnsolicitedStart: 06-01-2024 End: 33-46-9105Axutxnyzy Result EncounterCorey Davie DO Work Phone: NOMS External Department UnsolicitedStart: 05-03-2024 End: 31-73-7790Bpbaxq outpatient visit 15 minutesCorey Davie DO Work Phone: NOKQ [facility] OBComment on above:Pre-op examination; Pelvic pain in female; Fallopian tube disorderStart: 05-03-2024 End: 72-64-6054Tuazdyrwmpsqo examination doneCorey Davie DO Work Phone: NOMS HealthcareStart: 04-25-2024 End: 18-07-6731Ezmynoiov Result EncounterCorey Davie DO Work Phone: noms External Department UnsolicitedStart: 04-25-2024 End: 68-39-1152Zprfhjdmy Result EncounterCorey Davie DO Work Phone: NOMP External Department UnsolicitedStart: 04-24-2024 End: 12-83-5845Ditiweyzo Result EncounterCorey Davie DO Work Phone: noms External Department UnsolicitedStart: 04-24-2024 End: 88-29-8825Zspxxfdwt Result EncounterCorey Davie DO Work Phone: NOWE External Department UnsolicitedStart: 04-10-2024 End: 69-96-7421Akmupe flowsheetCorey Davie DO Work Phone: NOMS BCP OBStart: 04-10-2024 End: 15-22-3812Xlbyvs flowsheetCorey Davie DO Work Phone: NOMS BCP OBStart: 04-10-2024 End: 33-67-5318Bvqcjb outpatient visit 15 minutesCorey Davie DO Work Phone: [facility] OBComment on above:Encounter for fertility planning; PCOS (polycystic ovarian syndrome); Pelvic pain in female; Abnormal uterine bleeding (AUB)Start: 03-13-2024 End: 36-35-4045Rafonl outpatient visit 15 minutesJames Fraire MD Work Phone: [facility] CardiologyComment on above:Heart palpitations (Primary Dx)Start: 03-12-2024 End: 08-03-0420Uebgaerco encounterJennshayne Powell [facility]ENTERProMedica Physicians CardiologyStart: 02-22-2024 End: 32-03-1453Btvyf abstractingScanning Provider ExternalProMedica Physicians CardiologyStart: 11-24-2023 End: 96-32-9020ncyjkzkuvcZdktfhkzr [facility] Work Phone: Start: 11-24-2023 End: 17-02-6537Kxhyvlx encounter procedureC[facility] Work Phone: Start: 10-11-2022 End: 54-77-9356qyxsyufzdiFlhkuq Dymond Other [facility] [employer] Other Start: 29-65-9930Ynzopo outpatient new 20 minutes Pinky SinghFPG Urgent [facility] Procedures DateProcedureProcedure DetailPerforming ClinicianStart: 29-46-7340Fyvvt dip stick/tablet rgnt non-auto w/o micrscpCorey Davie DO Work Phone: Start: 72-82-9356Aqdok dip stick/tablet rgnt non-auto w/o micrscpKristina Uyen PROCUREMENT PROFESSIONAL LOGISTICS Work Phone: Start: 37-22-9676Jimbt dip stick/tablet rgnt non-auto w/o micrscpKristina Uyen [employer]UREMENT PROFESSIONAL LOGISTICS Work Phone: Start: 85-37-3772BYI, SERUM, OPEN SPINA BIFIDACorey Davie DO Work Phone: Start: 78-61-7941Bylco dip stick/tablet rgnt non-auto w/o micrscpCorey Davie DO Work Phone: Start: 90-02-5001JHG TOTAL PROTEIN 24 HOUR URINECorey Davie DO Work Phone: Start: 91-89-1313Ptmnj count complete automatedNot In System Ref ProvStart: 80-58-9875AWJ CBC WITH AUTO DIFFCorey Davie DO Work Phone: Start: 01-48-7830Xvkff dip stick/tablet rgnt non-auto w/o micrscpCorey Davie DO Work Phone: Start: 26-16-4585Zeysc dip stick/tablet rgnt non-auto w/o micrscpCorey Davie DO Work Phone: Start: 69-03-1774Qlaabsuu Cathi Cruz MD Work Phone: Start: 19-14-6614Ewjq scrn 1+ class nonchromoNot In System Ref ProvStart: 78-40-7867Wmwmdtebnh glycosylated p7dNzqqnurk Provider ExternalStart: 12-04-8822Mekpzwkmd c antibodyNot In System Ref ProvStart: 78-49-7590WFA 1&2 AB/AG SCREEN (P24 AG)Not In System Ref ProvStart: 03-20-2025 Iaad ia hepatitis b surface antigenNot In System Ref ProvStart: 03-20-2025 SYPHILIS TOTAL(UNKNOWN SYPHILIS STATUS)Not In System Ref ProvStart: 03-20-2025 TYPE AND SCREENNot In System Ref ProvStart: 12-07-7292YBV CBC WITH AUTO DIFF Caesar Davie DO Work Phone: Start: 03-01-2025 End: 87-46-6062Owelj dip stick/tablet rgnt non-auto w/o micrscpCorey Davie DO Work Phone: Start: 23-42-1608LXF PROGESTERONECorey Davie DO Work Phone: Start: 06-48-0124HTJFZKSXE REQUEST FOR LAB CORPCorey Davie DO Work Phone: Start: 23-10-2558RQK PROGESTERONECorey Davie DO Work Phone: Start: 81-64-3034KIX,APTIMA HPV,AGE GDLNCorey flo.do DO Work Phone: Start: 21-66-4341Ehivsfvoylo observation [Identifier] in Cervix by Cyto stainCorey Davie DO Work Phone: Start: 69-81-0364YEL PROGESTERONECorey Davie DO Work Phone: Start: 83-82-3584JUV PROGESTERONECorey flo.do DO Work Phone: Start: 19-65-9022SGL PROGESTERONECorey Davie DO Work Phone: Start: 92-28-8078QGS PROGESTERONECorey Davie DO Work Phone: Start: 86-16-9298VEF PROGESTERONECorey Davie DO Work Phone: Start: 04-35-6152NQR CBC WITH AUTO DIFFCorey flo.do DO Work Phone: Start: 41-08-6072WR PELVIS W/ TRANSVAGINALCorey Davie DO Work Phone: Start: 95-77-9841EJO CBC WITH AUTO DIFFCorey flo.do DO Work Phone: Start: 43-44-7799Tzw routine ecg w/least 12 lds w/i&r James Fraire MD Work Phone: Start: 14-10-4231Qzoyx Strep (POC)Start: 11-23-2022 Microscopic observation [Identifier] in Cervix by Cyto stainScanning External Start: 68-46-0651Jduczkaerkn observation [Identifier] in Cervix by Cyto stain Caesar flo.do DO Work Phone: Start: 13-00-7425Gvor cerv/vag auto thin layer prep mnl screenAmy Zackary SEARCH ENGINE OPTIMIZATION ANALYST Work Phone: Plan of Treatment DateCare ActivityDetailAuthorStart: 42-27-2493Yzxfhe Vaccines (1 of 2)Zoster Vaccines (1 of 2)[facility] HospitalStart: 98-97-4886Vppyavjkm for malignant neoplasm of cervixNOMS HealthcareStart: 57-87-5297Kpjgjxqxp for malignant neoplasm of cervixNOMS HealthcareStart: 24-07-3295Bkacf BMI Screening Adult BMI ScreeningMain Campus Medical Center SystemStart: 45-12-2037Zlpezyi Screening Tobacco ScreeningAtrium Health Carolinas Rehabilitation Charlottetart: 12-16-2025 End: 69-11-3233Benymzo encounter procedureNOMS BCP OBStart: 55-14-8337Tkaykjezx for malignant neoplasm of cervixPap SmearMain Campus Medical Center SystemStart: 93-33-8685Msilbjwig for malignant neoplasm of cervixPap SmearNOMA Healthcare Start: 58-26-9238Ccbxrzf ScreeningTobacco ScreeningMain Campus Medical Center SystemStart: 07-09-2025 End: 02-65-2644Hplcepd encounter acrhggxus56/18/2025 1:20 PM EST Routine LIANA HEAD [address] [place], [id number] Bethany Simon PA [address] [place] [address] LIANA LAWSONGYNStart: 06-24-2025 End: 33-60-1549ZMW panel - Blood by Automated countCBC Lab Routine Diabetes mellitus screening Expected: 06/24/2025 (Approximate), Expires: 06/24/2026[facility] Work Phone: comment on above:Expected: 06/24/2025 (Approximate), Expires: 06/24/2026Start: 06-24-2025 End: 44-02-4645Gizfzovnfjd of glucose 1 hour after glucose challenge for glucose tolerance testGlucose tolerance, 1 hour Lab Routine Diabetes mellitus screening Expected: 06/24/2025 (Approximate), Expires: 06/24/2026N[facility] HealthcareComment on above:Expected: 06/24/2025 (Approximate), Expires: 06/24/2026Start: 06-24-2025 End: 71-01-9089AW biophysical profile w non stress testUS biophysical profile w non stress test Imaging Routine 25 weeks gestation of ([facility]) H/O pre-eclampsia in prior , currently ([facility]) Chronic hypertension affecting ([facility]) Expected: 06/24/2025 (Approximate), Expires: 12/22/2025NOMS HealthcareComment on above: Expected: 06/24/2025 (Approximate), Expires: 12/22/2025Start: 06-24-2025 End: 45-87-1238MW for pregnancyUS OB follow up transabdominal approach Imaging Routine H/O pre-eclampsia in prior , currently ([facility]) Chronic hypertension affecting ([facility]) Expected: 06/24/2025, Expi res: 10/22/2025N[facility] HealthcareComment on above:Expected: 06/24/2025, Expires: 10/22/2025Start: 06-24-2025 End: 41-19-0981Kesfvtw encounter procedureNOMS Aman OBGYNComment on above: ArrivedStart: 06-18-2025 End: 09-16-9314Cqiisyydcapv consultation with udgtour5806/18/2025 2:00 PM EDT Telemedicine Maternal- Medicine at [facility] [address] [place] [phone] Yordy Cruz MD [address] [place] [address] [facility]: 06-18-2025 End: 56-03-2523Gmgieir encounter pmofaqmbd07/28/2025 8:00 AM EDT Appointment [facility] - Ultrasound [address] [place] [address] [phone] [facility] - UltrasoundStart: 06-05-2025 End: 83-06-2230Swtlmxt encounter procedureNOMS [place] OBGYNComment on above: ArrivedStart: 05-30-2025 End: 93-54-9497Maxwbgm encounter procedureNOMS Aman OBGYNComment on above: ArrivedStart: 05-25-2025 End: 85-99-0086Huchn fetoprotein, maternalAlpha fetoprotein, maternal Lab Routine Need for maternal serum alpha-protein (MSAFP) screening ([facility]) Expected: 05/25/2025 (Approximate), Expires: 05/25/2025NOMS HealthcareComment on above:Expected: 05/25/2025 (Approximate), Expires: 05/25/2025Start: 05-23-2025 End: 87-87-4010Lektbiw encounter mxlcflpop13/02/2025 2:30 PM EDT Routine LIANA HEAD [address] [place], [id number] Rody Qiu, PROCUREMENT PROFESSIONAL LOGISTICS [address] [place] [phone] LIANA LAWSONGYNStart: 05-20-2025 End: 37-73-2908WR MFM with or without consultUS MFM with or without consult Imaging Routine Hypertension affecting in second trimesterExpected: 05/20/2025 (Approximate), Expires: 04/19/2026[facility] Work Phone: comment on above:Expected: 05/20/2025 (Approximate), Expires: 04/19/2026Start: 05-17-2025 End: 10-18-3574MT MFM with or without consultUS MFM with or without consult Imaging Routine 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 Severe obesity due to excess calories affecting , antepartum ([facility]) Hypertension affecting in second trimester Expected: 05/17/2025, Expires: 05/17/2026[facility] Work Phone: Comment on above:Expected: 05/17/2025, Expires: 05/17/2026Start: 05-17-2025 End: 64-23-5298Keaomzs encounter procedureProDayton [facility] US ImagingStart: 04-25-2025 End: 96-22-5220Jqritpj encounter procedureNORiverview Medical Center OBGYNComment on above: ArrivedStart: 36-47-9744ZEZNQ-19 Vaccine ( season)COVID-19 Vaccine ()NOMS HealthcareStart: 60-20-3660Juqvgvcja vaccinationNOMS HealthcareStart: 04-11-2025 End: 38-99-8183Mfdfwgq aminotransferase [Enzymatic activity/volume] in Serum or PlasmaALT Lab Routine Gestational hypertension, antepartum ([facility]) induced hypertension, antepartum ([facility]) Expected: 04/11/2025 (Approximate), Expires: 04/11/2026N[facility] HealthcareComment on above:Expected: 04/11/2025 (Approximate), Expires: 04/11/2026Start: 04-11-2025 End: 64-39-3560Qjweqjnsl aminotransferase [Enzymatic activity/volume] in Serum or PlasmaAST Lab Routine Gestational hypertension, antepartum ([facility]) induced hypertension, antepartum ([facility]) Expected: 04/11/2025 (Approximate), Expires: 04/11/2026N[facility] HealthcareComment on above:Expected: 04/11/2025 (Approximate), Expires: 04/11/2026Start: 04-11-2025 End: 98-72-3664MTP W Auto Differential panel - BloodCBC and differential Lab Routine Gestational hypertension, antepartum ([facility]-HCC) induced hy pertension, antepartum ([facility]) Expected: 04/11/2025 (Approximate), Expires: 04/11/2026[facility] HealthcareComment on above:Expected: 04/11/2025 (Approximate), Expires: 04/11/2026Start: 04-11-2025 End: 18-19-0245Zocwhaqwza [Mass/volume] in Serum or PlasmaCreatinine Lab Routine Gestational hypertension, antepartum ([facility]-HCC) induced hypertension, antepartum ([facility]-HCC) Expected: 04/11/2025 (Approximate), Expires: 04/11/2026[facility] Work Phone: comment on above:Expected: 04/11/2025 (Approximate), Expires: 04/11/2026Start: 04-11-2025 End: 79-90-4404Ycvjdzv dehydrogenase [Enzymatic activity/volume] in Serum or Plasma by Lactate to pyruvate reactionLactate dehydrogenase Lab Routine Gestational hypertension, antepartum ([facility]-HCC) induced hypertension, antepartum ([facility]-HCC) Expected: 04/11/2025, Expires: 04/11/2026[facility] Comment on above:Expected: 04/11/2025, Expires: 04/11/2026Start: 04-11-2025 End: 40-47-7449Vimljnf, urine, 24 hourProtein, urine, 24 hour Lab Routine Gestational hypertension, antepartum ([facility]-HCC) induced hypertension, antepartum ([facility]-HCC) Expected: 04/11/2025 (Approximate), Expires: 04/11/2026[facility] HealthcareComment on above:Expected: 04/11/2025 (Approximate), Expires: 04/11/2026Start: 04-11-2025 End: 37-89-1504Ym and pttPt and ptt Lab Routine Gestational hypertension, antepartum ([facility]-HCC) induced hypertension, antepartum ([facility]-HCC) Expected: 04/11/2025, Expires: 04/11/2026[facility] HealthcareComment on above: Expected: 04/11/2025, Expires: 04/11/2026Start: 04-11-2025 End: 51-62-4481Lyool [Mass/volume] in Serum or PlasmaUric acid Lab Routine Gestational hypertension, antepartum ([facility]-HCC) induced hypertension, antepartum ([facility]-HCC) Expected: 04/11/2025 (Approximate), Expires: 04/11/2026[facility] HealthcareComment on above:Expected: 04/11/2025 (Approximate), Expires: 04/11/2026Start: 04-11-2025 End: 81-75-1529Sgqh nitrogen [Mass/volume] in Serum or PlasmaBUN Lab Routine Gestational hypertension, antepartum ([facility]-HCC) induced hypertension, antepartum ([facility]) Expected: 04/11/2025, Expires: 04/11/2026[facility] Healthcare Comment on above:Expected: 04/11/2025, Expires: 04/11/2026Start: 04-11-2025 End: 67-06-5721Mislbjx encounter procedureNOMS Aman OBGYNComment on above: ArrivedStart: 03-28-2025 End: 07-88-9818Qoobbco encounter procedureNOMS BCP OBComment on above:Arrived Start: 38-55-2726Spjet BMI ScreeningAdult BMI ScreeningMain Campus Medical Center System Start: 32-67-8731Tvhrsuf ScreeningTobacco ScreeningAtrium Health Carolinas Rehabilitation Charlottetart: 03-01-2025 End: 09-19-0672QNG/RhABO/Rh Lab Routine Missed menses , unspecified gestational age ([facility]) Expected: 03/01/2025 (Approximate), Expires: 03/01/2026[facility] HealthcareComment on above:Expected: 03/01/2025 (Approximate), Expires: 03/01/2026Start: 03-01-2025 End: 40-26-3478Glzhx type and Indirect antibody screen panel - BloodType and screen Lab Routine Missed menses , unspecified gestational age ([facility]) Expected: 03/01/2025 (Approximate), Expires: 03/01/2026[facility] Healthcare Work Phone: comment on above:Expected: 03/01/2025 (Approximate), Expires: 03/01/2026Start: 03-01-2025 End: 62-45-3390Kuzcb of abuse panel - Urine by Screen methodRapid drug screen, urine Lab Routine , unspecified gestational age ([facility]) Encounter for supervision of normal first in first trimester ([facility]) Expected: 03/01/2025 (Approximate), Expires: 03/01/2026[facility] HealthcareComment on above: Expected: 03/01/2025 (Approximate), Expires: 03/01/2026Start: 02-03-2025 End: 15-78-9444Htjzvngrvnexidvtof ( test) [Presence] in UrinePOCT , urine manually resulted Point of Care Testing Routine Encounter for preprocedural laboratory examination Expected: 02/03/2025 (Approximate), Expires: 04/05/2025[facility] Work Phone: Comment on above:Expected: 02/03/2025 (Approximate), Expires: 04/05/2025Start: 02-03-2025 End: 31-25-8071HrkmelfhoudcjasPzudrrolyhnlgvj Procedures Routine Abnormal uterine bleeding Expected: 02/03/2025 (Approximate), Expires: 01/03/2026[facility] Service Area Work Phone: Comment on above:Expected: 02/03/2025 (Approximate), Expires: 01/03/2026Start: 02-03-2025 End: 72-44-2812QI.doppler Uterus and Fallopian tubes W saline IUUS sonohysterogram Imaging Routine Abnormal uterine bleeding Expected: 02/03/2025 (Approximate), Expires: 01/03/2026[facility] Work Phone: Comment on above:Expected: 02/03/2025 (Approximate), Expires: 01/03/2026Start: 12-18-2024 End: 56-96-3962Hmaxjho encounter rvymxdvyx00/29/2025 1:30 PM EDT Procedure Visit [facility] [address] [place] [id number] Caesar Broderick, DO [address] [place] [address] [facility] BCP OBStart: 35-05-2987VsdfhsunxGeorgetown Behavioral Hospitaltart: 12-10-2024 End: 07-33-5630Avbfgni encounter procedureNOMS BCP OBComment on above:Arrived Start: 11-12-2024 End: 62-99-4679Ukvbopi encounter procedureNOMS BCP OBComment on above:Arrived Start: 07-23-2024 End: 13-75-1172Qwwpmeh encounter ctjqvomfu37/02/2024 1:00 PM EST Office Visit [facility] [address] [place] [address] Caesar Broderick, DO [address] [place] [address] [place] [address] [facility] BCP OBStart: 06-11-2024 End: 48-87-1351Kzmdxig encounter cbsnmukew08/21/2024 2:20 PM EDT Office Visit [facility] [address] [place] [address] Caesar Broderick, DO [address] [place] [address] [place] [address] ArrivedNOMS BCP OBComment on above:ArrivedStart: 06-01-2024 End: 60-40-1750Dmrskyj encounter /11/2024 8:30 AM EDT Procedure Visit [facility] EXT DEP Caesar Broderick, DO [address] [place] [address] [place] [address] NOMS EXT DEPStart: 05-03-2024 End: 41-61-0687Deoxdea encounter mgvqrofat69/12/2024 11:40 AM EDT Consult [facility] OB [address] [place] [address] Caesar Broderick, DO [address] [place] [address] [place] [address] [facility]OMS BCP OBStart: 85-72-8388QWNFR-19 Vaccine ( season)COVID-19 Vaccine ( season)[facility] Start: 44-72-5241Nfvnsftol vaccinationNOMA HealthcareStart: 04-10-2024 End: 18-83-3139Dxkwazmnaicaj hormone (AMH)Antimullerian hormone (AMH) Lab Routine PCOS (polycystic ovarian syndrome) Expected: 04/10/2024 (Approximate), Expires: 04/10/2025N[facility]S HealthcareComment on above:Expected: 04/10/2024 (Approximate), Expires: 04/10/2025Start: 04-10-2024 End: 51-31-4692XZAOHWHN Lab Routine PCOS (polycystic ovarian syndrome) Expected: 04/10/2024 (Approximate), Expires: 04/10/2025N[facility] HealthcareComment on above: Expected: 04/10/2024 (Approximate), Expires: 04/10/2025Start: 04-10-2024 End: 31-92-9135KF for pregnancyUS PELVIS-TRANSVAG IF INDICATED Imaging Routine PCOS (polycystic ovarian syndrome) Pelvic pain in female Expected: 04/10/2024 (Approximate), Expires: 04/10/2025NO HealthcareComment on above:Expected: 04/10/2024 (Approximate), Expires: 04/10/2025Start: 04-10-2024 End: 37-28-5905Xghrvha encounter uojgmoqmf96/20/2024 9:10 AM EDT Office Visit [facility] [address] [place] [address] Caesar Broderick, [address] [place] [address] [facility] OBComment on above:ArrivedStart: 03-13-2024 End: 59-92-2365Jpccsjb encounter brnveqolf90/23/2024 11:00 AM EDT Office Visit [facility] [address] [place] [address] James Fraire MD [address] [facility] [place], [id number] [facility] CardiologyStart: 53-85-9181Xebwg BMI ScreeningAdult BMI ScreeningProUniversity Hospitals Geneva Medical Centerca Health SystemStart: 15-28-3370Qwxkzqh ScreeningTobacco ScreeningProUniversity Hospitals Geneva Medical Centerca [facility] SystemStart: 38-14-2592YEI Vaccines (1 - 3-dose SCDM series)HPV Vaccines (1 - 3-dose SCDM series)[facility]: 48-37-0415EWhB/Tdap/Td Vaccines (1 - Tdap)DTaP/Tdap/Td Vaccines (1 - Tdap)[facility]: 71-24-3832Gnflpcvxl for malignant neoplasm of cervixHPV/CotestUnOhioHealth O'Bleness Hospital: 04-66-2687QRiC,Tdap and Td Vaccines (1 - Tdap) DTaP,Tdap and Td Vaccines (1 - Tdap)[facility] SystemStart: 2011 Hepatitis B Vaccines (1 of 3 - 19+ 3-dose series)Hepatitis B Vaccines (1 of 3 - 19+ 3-dose series)[facility]: 08-64-5356Lxaul BMI Follow Up PlanAdult BMI Follow Up PlanAtrium Health Carolinas Rehabilitation Charlottetart: 2010 Hepatitis C screeningHepatitis C ScreeningCleveland Clinic [facility] Start: 71-16-0763Lbwcmgb of varicella vaccinationVaricella Vaccines (1 of 2 - 13+ 2-dose series)[facility] HealthcareStart: 39-64-7641Sybetoicj vaccinationVaricella Vaccines (1 of 2 - 13+ 2-dose series)[facility]: 47-50-2692Ezvvvwqoak ScreeningDepression ScreeningProWooster Community Hospitaltart: 03-54-4453QChV/Tdap/Td Vaccines (1 - Tdap)DTaP/Tdap/Td Vaccines (1 - Tdap)[facility]: 61-54-2685BGN Vaccines (1 of 1 - Standard series)MMR Vaccines (1 of 1 - Standard series)[facility]: 18-54-3393UES screeningHIV ScreeningUnOhioHealth O'Bleness Hospital: 60-27-6064Vnjvf panelLipid PanelSamaritan North Health Center: 80-05-0440Oehryc Adult PhysicalYearly Adult PhysicalUnAdams County HospitalBacteria identified in Urine by CultureUrine culture Microbiology Routine Missed menses Ordered: 03/01/2025[facility] HealthcareComment on above:Ordered: 5CBC W Auto Differential panel - BloodCBC and differential Lab Routine PCOS (polycystic ovarian syndrome) Ordered: 04/10/2024[facility] HealthcareComment on above:Ordered: 04/10/2024BC W Auto Differential panel - BloodCBC and differential Lab Routine Missed menses , unspecified gestational age ([facility]) Ordered: 03/01/2025[facility] HealthcareComment on above:Ordered: 03/01/2025HLAMYDIA TRACHOMATIS (GENITO/STI)CHLAMYDIA TRACHOMATIS (GENITO/STI) Lab Routine Screen for STD (sexually transmitted disease) Ordered: 04/25/2025[facility] HealthcareComment on above:Ordered: 04/25/2025 End: 72-64-3452Rjnfuksuqz, urine, 24 hourCreatinine, urine, 24 hour Lab Routine Chronic hypertension affecting 20 weeks gestation of 1 Occurrences starting 05/17/2025 until 05/17/2026ProUab Hospital Highlands Health SystemComment on above:1 Occurrences starting 05/17/2025 until 05/17/2026ytology Cervical or vaginal smear or scraping studyPap Smear Pathology and Cytology Routine Well woman exam with routine gynecological exam Ordered: 12/10/2024[facility] Healthcare Work Phone: comment on above:Ordered: 12/10/2024DHEA-sulfateDHEA- sulfate Lab Routine PCOS (polycystic ovarian syndrome) Ordered: 04/10/2024[facility] HealthcareComment on above:Ordered: 04/10/2024Follicle stimulating hormone Follicle stimulating hormone Lab Routine PCOS (polycystic ovarian syndrome) Ordered: 04/10/2024[facility] HealthcareComment on above:Ordered: 04/10/2024hCG, quantitative, pregnancyhCG, quantitative, Lab Routine PCOS (polycystic ovarian syndrome) Ordered: 04/10/2024[facility] Healthcare Work Phone: comment on above:Ordered: 04/10/2024Hemoglobin A1c/Hemoglobin.total in BloodHemoglobin A1c Lab Routine Pelvic pain in female Abnormal uterine bleeding (AUB) Ordered: 04/10/2024[facility] HealthcareComment on above:Ordered: 04/10/2024Hemoglobin A1c/Hemoglobin.total in BloodHemoglobin A1c Lab Routine Missed menses , unspecified gestational age ([facility]) Ordered: 03/01/2025[facility] HealthcareComment on above:Ordered: 03/01/2025Hepatitis B virus surface Ag [Presence] in Serum or Plasma by ImmunoassayHepatitis B surface antigen Lab Routine Missed menses , unspecified gestational age ([facility]) Ordered: 03/01/2025[facility] HealthcareComment on above:Ordered: 03/01/2025Hepatitis C virus Ab [Presence] in Serum or Plasma by Immunoassay Hepatitis C antibody Lab Routine Missed menses , unspecified gestational age ([facility]) Ordered: 03/01/2025[facility] HealthcareComment on above: Ordered: 03/01/2025HIV-1/HIV-2 antigen/antibody combination immunoassayHIV-1 and HIV-2 antibodies Lab Routine Missed menses , unspecified gestational age ([facility]) Ordered: 03/01/2025[facility] HealthcareComment on above:Ordered: 03/01/2025Human papilloma virus DNA [Presence] in Unspecified specimen by Probe with amplificationHPV DNA probe, amplified Microbiology Routine Well woman exam with routine gynecological exam Ordered: 12/10/2024[facility] HealthcareComment on above:Ordered: 12/10/2024Luteinizing hormoneLuteinizing hormone Lab Routine PCOS (polycystic ovarian syndrome) Ordered: 04/10/2024[facility] HealthcareComment on above:Ordered: 04/10/2024 End: 75-37-5068Sgwshugghpx peptide B [Mass/volume] in BloodB-type natriuretic peptide [...] Screen for STD (sexually transmitted disease) Ordered: 04/25/2025[facility] HealthcareComment on above:Ordered: 04/25/2025 End: 29-77-9180Pgrpiuw, urine, 24 hourProtein, urine, 24 hour Lab Routine Chronic hypertension affecting 20 weeks gestation of 1 Occurrences starting 05/17/2025 until 05/17/2026[facility] SystemComment on above:1 Occurrences starting 05/17/2025 until 05/17/2026Reagin Ab [Presence] in Serum by RPRRPR Lab Routine Missed menses , unspecified gestational age ([facility]) Ordered: 03/01/2025[facility]:Ordered: 03/01/2025Rubella antibody, IgGRubella antibody, IgG Lab Routine Missed menses , unspecified gestational age ([facility]) Ordered: 03/01/2025[facility] HealthcareComment on above:Ordered: 03/01/2025SURESWAB(R) ADVANCED VAGINITIS PLUS, TMASURESWAB(R) ADVANCED VAGINITIS PLUS, TMA Pathology and Cytology Routine Screen for STD (sexually transmitted disease) Ordered: 04/25/2025[facility] Work Phone: comment on above:Ordered: 04/25/2025Thyrotropin [Units/volume] in Serum or PlasmaTSH Lab Routine PCOS (polycystic ovarian syndrome) Ordered: 04/10/2024[facility] on above:Ordered: 04/10/2024 Thyroxine (T4) free [Mass/volume] in Serum or PlasmaT4, free Lab Routine PCOS (polycystic ovarian syndrome) Ordered: 04/10/2024[facility]Comment on above:Ordered: 04/10/2024 Payers DatePayer CategoryPayerPolchi health [facility] [id number]-pay2023Medicaid [id number] [id number] 2..[id number] 2.0.1.331180.3.57[id number] 2.0.1.913251.3.579.2.459637-27-8293Mhkzfks [id number] 2.0.1.129585.3.57[id number] 2.16840.1.526358.3.57[id number] 2.16840.1.345026.3.57[id number] 2.16840.1.221962.3.57[id number] 2.16840.1.227812.3.57[id number] 2..1.967754.3.57[id number] 2..1.369966.3.57[id number] 2.0.1.567105.3.57[id number] 2..1.452370.3.57[id number] 2..1.469459.3.57[id number] 2..1.751372.3.57[id number] 2.840.1.551915.3.57[id number] 2.0.1.659605.3.57[id number] 2.16840.1.914171.3.579.2.071524-91-0867Flyzyrr1985228 2.840.1.701121.3.579.2.[id number] 2.16.840.1.701755.3.579.2.[id number] 2.16.840.1.616332.3.579.2.256774-27-2223Apjyrbs2014199 2.16.840.1.890404.3.579.2.3950Ipplaii13706305 2.16.840.1.545154.3.579.2.531 Social History DateTypeDetailFacilityStart: 02-22-2024 End: 52-10-6821Pth Assigned At [facility] Other Start: 92-07-7510Ukg Assigned At [facility] HospitalTobacco smoking status NHISTobacco smoking consumption unknownNOMA HealthcareStart: 47-66-5925Rpc assigned at birthNot on fileProUab Hospital [facility]lands YeahMobi SystemStart: 10-09-2022 End: 11-01-1941Itunnsm smoking status NHISNever smoked tobaccoProUab Hospital [facility]lands YeahMobi SystemStart: 10-09-2022 End: 24-10-0978Nlxuuma use and exposureSmokeless tobacco non-userProUab Hospital [facility] YeahMobi SystemStart: 02-22-2024 End: 53-67-9950Gmiijyvch beverage intakeEx-drinker (finding)[facility] SystemStart: 02-22-2024 End: 00-58-5538Yradkgu of Social functionProMediTrumbull Regional Medical Center SystemStart: 41-36-6080Ivxkru the past 12 months we worried whether our food would run out before we got money to buy more.Never TrueProUniversity Hospitals Geneva Medical CenterData Storage Group SystemStart: 09-30-2022 End: 86-77-7665ZlcPrngga (finding)[facility] Hospitaltart: 21-54-2877Oxxgskvne beverage intakeLifetime non-drinker (finding)[facility] Work Phone: Start: 12-24-2024 End: 69-92-7868Rsbiaizo to SARS-CoV-2 (event)Not sureUnAdams County HospitalStart: 25-53-3240MfdkfmwhzGVDE Healthcare Functional Status WjitLenaxkrjnwYwbzuvAllkutyb75-27-5401Idrnnfg Health Questionnaire 2 item (PHQ- 2) [Reported][facility]ansonZdjfwcnbkf35-17-0587Tpgzrdw Health Questionnaire 2 item (PHQ- 2) [Reported][facility] Work Phone: 1(616) 389-448305093876-56-8617Komkojhk - 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 Exam conducted with a mental hygienist present. Vitals: Estimated body mass index is 43.33 kg/m as calculated from the following: Height as of 06/11/24: 5' 8 . Weight as of this encounter: 285 lb. BP: 150/86 Patient's last menstrual period was 12/26/2024. Assessment/Plan ICD-10-CM 1. Second trimester ([facility]) Z34.92 POCT urinalysis dipstick manually resulted 2. 25 weeks gestation of ([facility]) Z3A.25 labetalol (Normodyne) 100 MG tablet 3. H/O pre-eclampsia in prior , currently ([facility]) O09.299 labetalol (Normodyne)100 MG tablet 4. Vitamin D deficiency E55.9 5. Chronic hypertension affecting ([facility]) O10.919 labetalol (Normodyne) 100 MG tablet [...] given for patient to get scheduled at [facility] and [facility] Scheduling. Patient to return to clinic in 2 weeks for routine OB appointment. Patient has had ER visits since last appointment due to headaches and elevated BP. Patient to have no lifting and to rest while off work. Documented by Karoline Casillas LPN on behalf of: Caesar Broderick DO documented in this encounterCox BransonWovbavnjop74-28-2701 History of Present illness Narrative* Yordy Cruz [...] TESTS AND ULTRASOUND REPORTS: Referral records and [facility] chart were reviewed Pertinent Ultrasound findings [...] completion in 4 weeks through [facility] serial growth ultrasounds every 4 weeks [...] patient is in complete care of her port steward. Patient does have ultrasound and office visit scheduled with us. Thank you for allowing me to participate in the care of Ellen Ramires. If there any questions please do not hesitate to contact us. Yordy Cruz MD Maternal- Medicine [facility] [address] [place] [address] This document was created with Shopt[employer] technology. Though I make every effort to review the dictation as it is transcribed, on occasion the spoken word can be misinterpreted by the technology leading to inappropriate words, phrases, or sentences. This note is addressed to the requesting provider as a consultation for clinical guidance. Specificmedical abbreviations are occasionally used and those are generally approved by the [place]?Board of?Obstetrics and?Gynecology?as well as?Rama tapia abbreviations. The above plan of care was based solely on the diagnoses for which a consultation was requested. ?More frequent testing may be indicated based on her other medical/obstetrical conditions. The management of other or medical conditions is beyond the scope of requested consultation and will c ontinue to be followed by the primary port steward or primary care provider. Note to patient: [...] opinion of the practitioner. documented in this encounterProMedica Memorial Hospital10-15-2025 History of Present illness Narrative* Rody [...] (polycystic ovarian syndrome) 07/30/2024 induced hypertension, antepartum ([facility]) 04/25/2025 Vitamin D deficiency 05/23/2025 H/O pre-eclampsia in prior , currently ([facility]) 05/23/2025 Resolved Ambulatory Problems Diagnosis Date [...] nursing note reviewed. Exam conducted with a mental hygienist present. Vitals: Estimated body mass index is 42.99 kg/m as calculated from the following: Height as of 06/11/24: 5' 8 . Weight as of this encounter: 282 lb 12 oz. BP: 130/76 Patient's last menstrual period was 12/26/2024. ASSESSMENT & PLAN ICD-10-CM 1. Second trimester ([facility]) Z34.92 POCT urinalysis dipstick manually resulted 2. 23 weeks gestation of ([facility]) Z3A.23 Return OB: Patient presents today [...] 06/01/2024 WISDOM TOOTH EXTRACTION documented in this encounterCox BransonYfqypicfuv69-61-7428 History of Present illness Narrative* Rody Qiu [...] (polycystic ovarian syndrome) 07/30/2024 induced hypertension, antepartum ([facility]) 04/25/2025 Vitamin D deficiency 05/23/2025 H/O pre-eclampsia in prior , currently ([facility]) 05/23/2025 Resolved Ambulatory Problems Diagnosis Date [...] nursing note reviewed. Exam conducted with a mental hygienist present. Vitals: Estimated body mass index is 43.03 kg/m as calculated from the following: Height as of 06/11/24: 5' 8 . Weight as of 05/23/25: 283 lb. BP: Patient's last menstrual period was 12/26/2024. ASSESSMENT & PLAN ICD-10-CM 1. Second trimester ([facility]) Z34.92 2. 22 weeks gestation of ([facility]) Z3A.22 POCT urinalysis dipstick manually resulted [...] of: Rody Qiu NP documented in this encounterCox BransonDznunkyenw90-78-6738 History of Present illness Narrative* Rody Qiu [...] (polycystic ovarian syndrome) 07/30/2024 induced hypertension, antepartum ([facility]) 04/25/2025 Vitamin D deficiency 05/23/2025 H/O pre-eclampsia in prior , currently ([facility]) 05/23/2025 Resolved Ambulatory Problems Diagnosis Date [...] nursing note reviewed. Exam conducted with a mental hygienist present. Vitals: Estimated body mass index is 43.03 kg/m as calculated from the following: Height as of 06/11/24: 5' 8 . Weight as of this encounter: 283 lb. BP: 142/82 Patient's last menstrual period was 12/26/2024. ASSESSMENT & PLAN ICD-10-CM 1. Second trimester ([facility]) Z34.92 POCT urinalysis dipstick manually resulted 2. 21 weeks gestation of ([facility]) Z3A.21 3. induced hypertension, antepartum ([facility]) O13.9 4. Vitamin D deficiency E55.9 5. H/O pre-eclampsia in prior , currently ([facility]) O09.299 Return OB: Patient presents today [...] of: Rody Qiu NP documented in this encounterCox BransonQviavztelq90-91-0805 History of Present illness Narrative* Bethany Lundy [...] you been seen here at [facility] in a previous ? No Recent ER visits or hospitalizations? Yes, for slicing thumb on mandolin Bring blood sugar log or meter with you today? (Please bring them with you for every visit at [facility]) N/A Flu vaccine (Jun-October)? N/A Any [...] TESTS AND ULTRASOUND REPORTS: Referral records and [facility] chart were reviewed Pertinent Ultrasound findings [...] recommended threshold of 160/110. Referenc e: PMID: [id number], 2021. Blood pressures do increase as progresses [...] preeclampsia prevention as is recommended by the [place] [employer]ne[employer] Committee Opinion No. 743. [...] patient is in complete care of her port steward. Patient does have ultrasound and office visit scheduled with us. Thank you for allowing me to participate in the care of Ellen Ramires. If there any questions please do not hesitate to contact us. Yordy Cruz MD Maternal- Medicine [address] [place] [address] This document was created with Shoptagr technology. Though I make every effort to review the dictation as it is transcribed, on occasion the spoken word can be misinterpreted by the technology leading to inappropriate words, phrases, or sentences. This note is addressed to the requesting provider as a consultation for clinical guidance. Specificmedical abbreviations are occasionally used and those are generally approved by the [place]?Board of?Obstetrics and?Gynecology?as well as?Rama tapia abbreviations. The above plan of care was based solely on the diagnoses for which a consultation was requested. ?More frequent testing may be indicated based on her other medical/obstetrical conditions. The management of other or medical conditions is beyond the scope of requested consultation and will c ontinue to be followed by the primary port steward or primary care provider. Note to patient: [...] Blood drawn for cell-free DNA testing per [facility] phlebotomy. Patient tolerated well. documented in this encounterProMedica Memorial Hospital09-04-2025 History of Present illness Narrative* Rody [...] ovarian syndrome) 07/30/2024 induced hypertension, antepartum ([facility]) 04/25/2025 Resolved Ambulatory Problems Diagnosis Date [...] nursing note reviewed. Exam conducted with a mental hygienist present. Vitals: Estimated body mass index is 42.88 kg/m as calculated from the following: Height as of 06/11/24: 5' 8 . Weight as of this encounter: 282 lb. BP: 138/82 Patient's last menstrual period was 12/26/2024. ASSESSMENT & PLAN ICD-10-CM 1. Screening, , for anatomic survey ([facility]) Z36.89 CANCELED: US OB 14+ weeks anatomy scan 2. Second trimester ([facility]) Z34.92 POCT urinalysis dipstick manually resulted 3. 17 weeks gestation of ([facility]) Z3A.17 4. Screen for STD (sexually transmitted disease) Z11.3 SURESWAB(R) ADVANCED VAGINITIS PLUS, TMA CHLAMYDIA TRACHOMATIS (GENITO/STI) Neisseria gonorrhea DNA probe, direct 5. Need for maternal serum alpha-protein (MSAFP) screening ([facility]) Z36.1 Alpha fetoprotein, maternal Alpha fetoprotein, maternal 6. induced hypertension, antepartum ([facility]) O13.9 7. Vitamin D deficiency E55.9 [...] of: Caesar Broderick DO documented in this encounterCox BransonThjjbvkjsq89-22-4829 History of Present illness Narrative* Karoline Casillas, WOMEN'S MINISTRY DIRECTOR - 04/11/2025 10:30 AM EDT Reason for [...] nursing note reviewed. Exam conducted with a mental hygienist present. Vitals: Estimated body mass index is 42.63 kg/m as calculated from the following: Height as of 06/11/24: 5' 8 . Weight as of this encounter: 280 lb 6.4 oz. BP: 140/86 Patient's last menstrual period was 12/26/2024. ASSESSMENT & PLAN ICD-10-CM 1. 15 weeks gestation of ([facility]) Z3A.15 POCT urinalysis dipstick manually resulted 2. Second trimester ([facility]) Z34.92 POCT urinalysis dipstick manually resulted 3. Acute nonintractable headache, unspecified headache type R51.9 4. BP check Z01.30 Patient presents today for a routine obstetrics appointment. Patient is currently 15w1d with a Estimated Date of Delivery: 10/02/25. Patient is having persistent elevated HTN. Discussed patient being referred to [facility] for management and recommendations for Gestational HTN. Patient is agreeable with referral. Patient to be started on Labetalol 200mg BID. Patient given labs and 24 hour urine to have obtained for baseline testing. Patient aware that once lab results are obtained then referral will be completed, so then all results can be sent to [facility] at onetime. Patient to return to clinic in 4 weeks for routine OB appointment. Patient to reach out to office with any concerns/questions. Documented by Karoline Casillas LPN on behalf of: Caesar Broderick DO documented in this encounterCox BransonAsxounosax04-20-6262 History of Present illness Narrative* Karoline Casillas [...] nursing note reviewed. Exam conducted with a mental hygienist present. Vitals: Estimated body mass index is 42.29 kg/m as calculated from the following: Height as of 24: 5' 8 . Weight as of this encounter: 278 lb 1.9 oz. BP: 138/80 Patient's last menstrual period was 12/26/2024. ASSESSMENT & PLAN ICD-10-CM 1. 13 weeks gestation of ([facility]) Z3A.13 POCT urinalysis dipstick manually resulted 2. Second trimester ([facility]) Z34.92 POCT urinalysis dipstick manually resulted [...] of: Caesar Broderick DO documented in this encounterCox BransonSevvtinnnt35-26-4760 History of Present illness Narrative* Melanie Almaraz [...] manually resulted , unspecified gestational age ([facility]) - Type and screen; Future - ABO/Rh; Future - CBC and differential - Hemoglobin A1c - RPR - Rubella antibody, IgG - Hepatitis B surface antigen - Hepatitis C antibody - HIV-1 and HIV-2 antibodies - Rapid drug screen, urine; Future Encounter for supervision of normal first in first trimester ([facility]) - Rapid drug screen, urine; Future 9 weeks gestation of ([facility]) Nurse Note: Pt uncertain of doing the [place] [employer] to one. Advised pt if she does to make sure both labs and [place] is done at the same time. PVU. Pt did state she had a Vit. D deficiency and has a h/o high blood pressure with G1. 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 Tadalafil - 10mg as needed Injuries: No STD: No Please select all that are applicable: SA: Yes SA Results: Yes -Done at [facility] 2023- reports was told normal, no [...] family history on file. documented in this encounterC[facility] Work Phone: 1(319) 352-996605-15-2025 Instructions* Patient Instructions* Robbie Lopez MD - [...] Lopez 01/03/2025 11:05 AM documented in this encounterCleveland Clinic [facility]or Hospital Work Phone: 1(871) 958-689404-29-2025 History of Present illness Narrative* Kita Griggs [...] nursing note reviewed. Exam conducted with a mental hygienist present. Vitals: Estimated body mass index is [...] after allowing sufficient time to take affect. crop picker and scissors used to remove affected area. Placed in formalin and sent to pathology. Post-procedure instructions given. Follow Up: as needed Documented by Kita Griggs LPN on behalf of: Caesar Broderick DO documented in this encounterCox BransonQgwkzfqcda68-80-1780 History of Present illness Narrative* Melanie Almaraz [...] nursing note reviewed. Exam conducted with a mental hygienist present. Vitals: Estimated body mass index is [...] of: Caesar Broderick DO documented in this encounterCox BransonWkwbkuwzmy31-73-7988 History of Present illness Narrative* Karoline Casillas LPN - 11/12/2024 2:10 PM EDT Reason for Appointment: Patient ID: Ellen Raimres is a 34 y.o. female who presents [...] of: Caesar Broderick DO documented in this encounterCox BransonRybljbqewq47-66-6313 History of Present illness Narrative* Kita Griggs [...] nursing note reviewed. Exam conducted with a mental hygienist present. Vitals: Estimated body mass index is [...] of: Caesar Broderick DO documented in this encounterCox BransonXmskljllth07-48-5658 History of Present illness Narrative* Karoline Casillas [...] nursing note reviewed. Exam conducted with a mental hygienist present. Vitals: Estimated body mass index is [...] of: Caesar Broderick DO documented in this encounterCox BransonGqvcuweszm52-88-6954 History of Present illness Narrative* Whitney Painting - 05/03/2024 11:40 AM EDT Reason for Appointment: Patient ID: Ellen Ramires is a 34 y.o. female who presents for Pre-op Visit Patient presents today for Pre Op appointment. Patient is scheduled to undergo Diagnostic Laparoscopy, possible FLAKITO, possible FOE, possible BSO, possible Chromopertubation on 06/01/[address] Broderick at [facility]. MEDICATIONS Current Outpatient Medications Medication [...] nursing note reviewed. Exam conducted with a mental hygienist present. Vitals: There is no height or [...] reviewed, and patient is to proceed to [facility] OR. Follow Up: Patient is to follow up between 1-2 weeks post operative to assess proper healing and recovery fromprocedure. Documented by Karoline Casillas LPN on behalf of: Caesar Broderick DO documented in this encounterCox BransonXjwmxzpvos78-43-6861 History of Present illness Narrative* Kita Griggs [...] nursing note reviewed. Exam conducted with a mental hygienist present. 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 PCP: [facility] Jazmín Referring Physician: Sabiha Aviles APRN-SEARCH ENGINE [place] [address] documented in this encounterProMedica Memorial Hospital07-22-2024 Miscellaneous Notes* Telephone Encounter - Sheyla Powell CMA - 03/12/2024 2:47 PM EDT Left message for patient to remind them to bring their most current medication list with them to their appointment. documented in this encounterProMedica Memorial Hospital07-22-2024 Telephone encounter Note* Telephone Encounter - Sheyla Powell CMA - 03/12/2024 2:47 PM EDT Left message for patient to remind them to bring their most current medication list with them to their appointment. [facility]02-20-2023 Evaluation note* Encounter Date Diagnosis Assessment [...] the onset of your symptoms of COVID Dapt Other Chief complaint+Reason for visit Narrative* Chief Complaint sinus pressure, coug h Reason for Visit Contact with and (matt spected) exposure to covid-19 Sore throat Sinusitis [facility] Work Phone: Evaluation note* Diagnosis Onset Date Resolution Status Contact with and (suspected) exposure to covid-19 acuteSore throatacuteSinusitisnoneactive [facility] Work Phone: Evaluation note* Diagnosis Postoperative [...] palpitations- Primary Palpitations documented in this encounter [facility]* Diagnosis Encounter for [...] [facility] HealthcareEvaluation noteNo assessment information [facility] Work Phone: Evaluation [facility]* Diagnosis Encounter for preprocedural laboratory examination- Primary Abnormal uterine bleeding Unspecified disorder of menstruation and other abnormal bleeding from female genital tract documented in this encounter [facility] Work Phone: Evaluation note* Diagnosis Amenorrhea Absence of menstruation Missed menses , unspecified gestational age ([facility]) Encounter for supervision of normal first in first trimester ([facility]) 9 weeks gestation of ([facility]) Vitamin D deficiency History of hypertension Personal history of other diseases of circulatory system documented in this encounter [facility] HealthcareEvaluation note* Diagnosis 13 weeks gestation of ([facility]) Second trimester ([facility]) state, incidental Acute nonintractable headache, unspecified headache type documented in this encounter [facility] HealthcareEvaluation note* Diagnosis 15 weeks gestation of ([facility]) Second trimester ([facility]) state, incidental Acute nonintractable headache, unspecified headache type BP check Screening for hypertension Gestational hypertension, antepartum ([facility]) induced hypertension, antepartum ([facility]) Transient hypertension of , antepartum documented [facility]* Diagnosis Hypertension affecting in second trimester- Primary [facility] Diagnosis Screening, , for anatomic survey ([facility]) Encounter for anatomic survey Second trimester ([facility]) state, incidental 17 weeks gestation of ([facility]) Screen for STD (sexually transmitted disease) Screening examination for venereal disease Need for maternal serum alpha-protein (MSAFP) screening ([facility]) induced hypertension, antepartum ([facility]) Transient hypertension of , antepartum Vitamin D deficiency documented [facility]* Diagnosis Chronic 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 Severe obesity due to excess calories affecting , antepartum ([facility]) 20 weeks gestation of documented in this encounter [facility]* 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 Chronic hypertension affecting Severe obesity due to excess calories affecting , antepartum ([facility]) Hypertension affecting in second trimester documented in this encounter [facility]* 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 Chronic hypertension affecting Severe obesity due to excess calories affecting , antepartum ([facility]) Hypertension affecting in second trimester [facility] Diagnosis Chronic hypertension affecting ([facility])- Primary Second trimester ([facility]) state, incidental 22 weeks gestation of ([facility]) documented in this encounter [facility]* Diagnosis Second trimester ([facility]) state, incidental 21 weeks gestation of ([facility]) induced hypertension, antepartum ([facility]) Transient hypertension of , antepartum Vitamin D deficiency H/O pre-eclampsia in prior , currently ([facility]) documented in this encounter [facility]* Diagnosis Second trimester ([facility]) state, incidental 23 weeks gestation of ([facility]) documented in this encounter [facility]* Diagnosis Chronic hypertension affecting - Primary 20 weeks gestation of Anxiety disorder affecting , 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 Severe obesity due to excess calories affecting , antepartum ([facility]) [facility] Diagnosis Second trimester ([facility]) state, incidental 25 weeks gestation of ([facility]) H/O pre-eclampsia in prior , currently ([facility]) Vitamin D deficiency Chronic hypertension affecting ([facility]) Diabetes mellitus screening Screening for diabetes mellitus documented in this encounter [facility] HealthcareInstructionsNot on filedocumented in this encounter[facility] SystemInstructionsNot on filedocumented in this encounterMain [facility] Center SystemInstructionsNot on filedocumented in this encounterMain Campus Medical Center SystemInstructionsNot on filedocumented in this encounterMain [facility] Center System InstructionsNot on filedocumented in this [facility] InstructionsNot on filedocumented in this [facility] InstructionsNot on filedocumented in this encounterMain [facility] Center System InstructionsNot on filedocumented in this encounterMain [facility] Center System InstructionsNot on filedocumented in this [facility] Family History No Family [...] [facility] LABS AT PCPSpecialtyDiagnoses / ProceduresReferred By Contact Referred To ContactCardiology Diagnoses Heart palpitations Sabiha Aviles, KRISTINE-SEARCH ENGINE OPTIMIZATION ANALYST [address] [place] [address] [facility] [address] [place] [address] Referral IDStatusReasonStart DateExpiration DateVisits RequestedVisits [id number] Review Specialty Services Required /[id number]-inHjzcaaPpvbcljqBmeqqiokbxa ExamReason CommentsMole removalReasonCommentsInfertilityReasonCommentsAmenorrheaReason CommentsRoutine VisitReasonCommentsgHTNPCOS Care Teams [...] DateEnd Date Kromer, Judy PCP - [facility] [place] [facility]7/09/14Team MemberRelationshipSpecialtyStart DateEnd Date Kromer, Judy PCP - [facility] [place] [facility]7/09/14Team MemberRelationshipSpecialtyStart DateEnd Date Kromer, Judy PCP - [facility] [place] [facility]7/09/14Team MemberRelationshipSpecialtyStart DateEnd Date Kromer, Judy PCP - [facility] [place] [facility]7/09/14Team MemberRelationshipSpecialtyStart DateEnd Date Kromer, Judy PCP - [facility] [place] [facility]7/09/14Team MemberRelationshipSpecialtyStart DateEnd Date Kromer, Judy PCP - [facility] [place] [facility]7/09/14Team MemberRelationshipSpecialtyStart DateEnd Date Kromer, Judy PCP - [facility] [place] [facility]7/09/14Team MemberRelationshipSpecialtyStart DateEnd Date [address] [place] PCP - GeneralFamily Medicine11/12/22Team MemberRelationshipSpecialtyStart DateEnd Date [facility] [address] [place] PCP - GeneralFamily Medicine11/12/22Team MemberRelationshipSpecialtyStart DateEnd Date [facility] [address] [place] PCP - GeneralFamily Medicine11/12/22Team MemberRelationshipSpecialtyStart DateEnd Date Kromer, Judy PCP - [facility] [place] [facility]02/20/24Team MemberRelationshipSpecialtyStart DateEnd Date Kromer, Judy PCP - [facility] [place] [facility]02/20/24Team MemberRelationshipSpecialtyStart DateEnd Date Kromer, Judy PCP - [facility] [place] [facility]02/20/24Team MemberRelationshipSpecialtyStart DateEnd Date Kromer, Judy PCP - [facility] [place] [facility]02/20/24 Team Status: Inactive Member Role Status Dates Caesar Broderick DO Attending Provider Active Start : December 18, 2024 End: December 18, 2024Team MemberRelationshipSpecialtyStart DateEnd Date June Trinidad LPN Licensed Practical NurseReproductive Endocrinology and Infertility01/01/25Team MemberRelationshipSpecialtyStart DateEnd Date Kromer, Judy PCP - [facility] [place] [facility]02/20/24Team MemberRelationshipSpecialtyStart DateEnd Date Kromer, Judy PCP - [facility] [place] [facility]02/20/24Team MemberRelationshipSpecialtyStart DateEnd Date Kromer, Judy PCP - [facility] [place] [facility]02/20/24Team MemberRelationshipSpecialtyStart DateEnd Date Judy Caal PCP - [facility] [place] [facility]02/20/24am MemberRelationshipSpecialtyStart DateEnd Date Services, [facility] [address] [place], [place] PCP - GeneralFamily Medicine11/03/24Team MemberRelationshipSpecialtyStart DateEnd Date Services, [facility] [address] [place], [place] PCP - GeneralFamily Medicine11/03/24Team MemberRelationshipSpecialtyStart DateEnd Date Lima Caalsa PCP - [facility]02/20/24Team MemberRelationshipSpecialtyStart DateEnd Date [facility], [facility] [address] [place], [place] PCP - GeneralFamily Medicine11/03/24Team MemberRelationshipSpecialtyStart DateEnd Date Services, [facility] [address] [place], [place] PCP - GeneralFamily Medicine11/03/24Team MemberRelationshipSpecialtyStart DateEnd Date [facility] [address] [place], [place] PCP - GeneralFamily Medicine11/03/24Team MemberRelationshipSpecialtyStart DateEnd Date Andres Caalyssa PCP - [facility] [place] [facility]02/20/24Team MemberRelationshipSpecialtyStart DateEnd Date fAua Judy PCP - [facility] [place] [facility]02/20/24Team MemberRelationshipSpecialtyStart DateEnd Date Services, [facility] [address] [place], [place] PCP - GeneralFamily Medicine11/03/24Team MemberRelationshipSpecialtyStart DateEnd Date Judy Caal PCP - [facility]02/20/24 Goals (unrecognized section and content) Goals may be documented in a n alternate section INFORMATION SOURCE (unrecogn ized section and content) DATE CREATED AUTHOR 12/29/2024 [facility] DATE CREATED AUTHOR AUTHOR'S ORGANIZ ATION 01/07/2025 [facility] DATE CREATED AUTHOR AUTHOR'S ORGANIZ ATION 06/19/2025 [facility] DATE CREATED AUTHOR AUTHOR'S ORGANIZ ATION 06/20/2025 [facility] DATE CREATED AUTHOR AUTHOR'S ORGANIZ ATION 06/25/2025 [facility] EPIC FOR RECORDS PERTAINING TO [...] BE BASED ON THE PRIMARY CLINICAL RECORDS. [employer] provides no warranty or guarantee of the accuracy or completeness of information in this document.
--- NOTE | 2025-08-16 15:19 | US_ITS ---
The [address] [address] Patient Name: ELLEN MITCHELL MRN: [id number] date: 1990 Sex: F Assigned Patient Location: US Current Patient Location: Accession/Order Number: [id number] Exam Date: 08/16/2025 15:20 Report Date: 08/16/2025 21:09 At the request of: ISRAEL LUNA DO Procedure: US OB growth Limited pelvic ultrasound HISTORY: Hypertension Limited assessment for growth. Fetus in cephalic presentation with longitudinal lie. Amniotic fluid index 13.4 cm. Largest pocket measures 4.4 cm. heart rate 167 bpm. The gestational age by ultrasound 35 weeks 2 days consistent with estimated delivery date of delivery 120 01/27/2026. Estimated weight 2650 g which is in the 93.5 percentile. Abdominal circumference greater than 97%. US/US OB growth IMPRESSION: Single live intrauterine gestation 35 weeks 2 days. Impression dictated by: Jama Gaston M.D. 08/16/2025 9:09 PM Dictation Location: [employer] Electronically authenticated by: [id number] Y Date: 08/16/2025 21:09
--- NOTE | 2025-08-16 15:19 | US_ITS ---
The [address] [address] Patient Name: ELLEN MITCHELL MRN: [id number] date: 1990 Sex: F Assigned Patient Location: US Current Patient Location: Accession/Order Number: [id number] Exam Date: 08/16/2025 15:20 Report Date: 08/16/2025 21:10 At the request of: ISRAEL LUNA DO Procedure: US OB BPP w non-stress Ultrasound biophysical profile HISTORY: Preeclampsia. Adequate breathing movement, gross body movement, tone and amniotic fluid volume for total score of 8 out of 8. The amniotic fluid index is 13.4cm within normal limits. The heart rate 167 bpm. US/US OB BPP w non-stress IMPRESSION: Adequate ultrasound biophysical profile Impression dictated by: Jama Gaston M.D. 08/16/2025 9:10 PM Dictation Location: [facility] Electronically authenticated by: [id number] Y Date: 08/16/2025 21:10
== END 2025-08-16 16:10 | disposition home or self-care (01) ==
LOC: US 15:10 → FBC 15:13
PROVIDERS: Visit Provider Obstetrics & Gynecology
DX: O14.93 Unspecified pre-eclampsia, third trimester (principal); Z3A.35 35 weeks gestation of pregnancy
CPT/HCPCS: 76816; 76818

== ENCOUNTER 2025-08-20 10:08 | Outpatient (OUT) | payer MEDICAID, SELFPAY ==
--- OUTSIDE RECORDS SUMMARY | 2024-05-24 10:00 | XMS_ITS ---
Author Organization [facility] vices Address [address] [place], [place] [phone] Care Team Providers Care Safe And Vault Service Mechanic Name Role Phone Sabiha Aviles Primary Care Provider Noelle Chris Unavailable REASON FOR VISIT 3 mo Vit D Social History Sex Assigned At : Social History Observation Description Sex Assigned At Female Encounters Encounter Location Date Provider Diagnosis Main [address] [place], [place] [id number] 05/24/2024 Noelle Chris Plan Of Treatment Next Appt Details Provider Name:Judy Yepez , 08/27/2025 08:15:00 AM, [address] [place], [place], [id number], Progress Notes * Chayo RAMIRESDOB: 2 (35 yo F)Acc No.[id number]:05/24/2024 Medical Note Patient: Trent murphy Chayo Lockwood :?DANA PerezCDOB:1990???Age:34 Y???Sex:FemaleDate:05/24/2024hone:[phone]:[address] [facility], [address], [place], [place]Rdd:Sabiha Aviles Subjective: * Chief Complaints: * 3 mo Vit D Billing Information: * Procedure Codes: * Electronic signature of FABI Perez on 08/20/2025 at 10:12 AM EST Sign off status: Pending * Provider: FABI Acevedo Date: Generated for Printing/Faxing/eTransmitting on:?08/20/2025 10:12 AM EST
--- OUTSIDE RECORDS SUMMARY | 2024-06-25 10:00 | XMS_ITS ---
Author Organization [facility] vices Address [address] [place], [place] [address] Care Team Providers Care Rental Manager Name Role Phone Sabiha Aviles Primary Care Provider REASON FOR VISIT 3mo. F/U Vit. D. Social History Sex Assigned At : Social History Observation Description Sex Assigned At Female Encounters Encounter Location Date Provider Diagnosis [address] [id number] 06/25 Sabiha Aviles Plan Of Treatment Next Appt Details Provider Name:Judy Yepez , 08/27/2025 08:15:00 AM, [address] [place], [place], [phone], Progress Notes * Chayo RAMIRESDOB: 2 (35 yo F)Acc No.[id number]:06/25/2024 Medical Note Patient: Trent murphy Chayo Lockwood :?Sabiha AvilesDOB:1990???Age:34 Y???Sex: FemaleDate:06/25/2024hone:[phone]:[address] [place] [address], [address] [facility], [place], [place] Subjective: * Chief Complaints: * 3 mo. F/U Vit. D. Billing Information: * Procedure Codes: * Electronic signature of THEA Ward on 08/20/2025 at 10:12 AM ESTSign off status: Pending * Provider: Jill Aviles Date: 08/25/2023 Generated for Printing/Faxing/eTransmitting on:?08/20/2025 10:12 AM EST
--- OUTSIDE RECORDS SUMMARY | 2025-03-05 08:15 | XMS_ITS ---
Author Organization [facility] vices Address [address] [place], [place] [phone] Care Team Providers Care Die Cleaner Name Role Phone Sabiha Aviles Primary Care Provider REASON FOR VISIT 3m depression, anxiety Social History Sex Assigned At : Social History Observation Description Sex Assigned At Female Encounters Encounter Location Date Provider Diagnosis East [address] [place] [id number] 03/05 Sabiha Aviles Plan Of Treatment Next Appt Details Provider Name:Judy Yepez , 08/27/2025 08:15:00 AM, [address] [place], [place], [phone], Progress Notes * Chayo RAMIRESDOB: 2 (35 yo F)Acc No.[id number]:03/05/2025 Medical Note Patient: Trent murphy Chayo Lockwood :?Sabiha AvilesDOB:1990???Age:34 Y???Sex: FemaleDate:03/05/2025Phone:[phone]:[address] [facility], [address], [place], [phone] Subjective: * Chief Complaints: * 3 m depression, anxiety * Electronic signature of THEA Ward on 08/20/2025 at 10:12 AM ESTSign off status: Pending * Provider: Jill Aviles Date: 0 03/05/2025 Generated for Printing/Faxing/eTransmitting on:?08/20/2025 10:12 AM EST
--- OUTSIDE RECORDS SUMMARY | 2025-05-20 08:15 | XMS_ITS ---
Author Organization [facility] vices Address [address] [place], [place] [address] Care Team Providers Care Marketing Recruiter Name Role Phone Sabiha Aviles Primary Care Provider [phone] Noelle Chris Unavailable [phone] REASON FOR VISIT depression Social History Sex Assigned At : Social History Observation Description Sex Assigned At Female Encounters Encounter Location Date Provider Diagnosis Main [address] [place], [place] [id number] 05/20/2025 Noelle Chris Plan Of Treatment Next Appt Details Provider Name:Judy Yepez , 08/27/2025 08:15:00 AM, [address] [place], [place], [phone], Progress Notes * Chayo RAMIRESDOB: 2 (35 yo F)Acc No.[id number]:05/20/2025 Medical Note Patient: Trent murphy Chayo [place] :?DANA PerezCDOB:1990???Age:35 Y???Sex:FemaleDate:05/20/2025Phone:[phone]:[address] [facility], [address] [facility], [place], [place]Zec:Sabiha Aviles Subjective: * Chief Complaints: * D epression Billing Information: * Procedure Codes: * Electronic signature of FABI Perez on 08/20/2025 at 10:11 AM EST Sign off status: Pending * Provider: FABI Acevedo Date: 0 05/20/2025 Generated for Printing/Faxing/eTransmitting on:?08/20/2025 10:11 AM EST
--- OUTSIDE RECORDS SUMMARY | 2025-08-06 08:40 | XMS_ITS | Encounter Summary ---
Author Organization [facility] Address [address] [place] [address] Care Team Providers Care Shop Tech Name Role Phone Judy Caal Unavailable Unavailable Reason for Visit * ReasonCommentsRoutine Visit Encounter Details DateTypeDepartmentCare Team (Latest Contact Info)Uwwfmpwvupc05/16/2025 8:40 AM ESTRoutine [facility] [address] [place] [phone] Caesar Broderick DO [address] [place] [address] 31 weeks gestation of ([facility]); Third trimester ([facility]); H/O pre-eclampsia in prior , currently ([facility]); Vitamin D deficiency Social History Tobacco UseTypesPacks/DayYears UsedDateSmoking Tobacco: NeverSmokeless Tobacco: NeverAlcohol UseStandard Drinks/WeekCommentsNever0 (1 standard drink = 0.6 oz pure alcohol)PHQ-2AnswerDate RecordedPatient Health Questionnaire-2 Score0 07/30/2025Estimated Date of WmthxmghKatxuokxYwj00/11/2026ased on last menstrual period of 12/26/2024Sex and Gender InformationValueDate RecordedSex Assigned at BirthNot on fileLegal SxuOstuwn41/06/2024 9:48 AM EDTGender Identity Not on fileSexual OrientationNot on filedocumented as of this encounter Last Filed Vital Signs Vital SignReadingTime TakenCommentsBlood Yjnbkadz836/6808/06/2025 8:43 AM EST Pulse--Temperature--Respiratory Rate--Oxygen Saturation--Inhaled Oxygen Concentration--Egrmcf896 kg (291 lb 1.9 oz)08/06/2025 8:43 AM ESTHeight--Body Mass Index44.261 2:39 PM EDTdocumented in this encounter Progress Notes * Kita Griggs, [employer] - 08/06/2025 8:40 AM EST Reason for Appointment: Patient ID: Chayo Ramires is a 35 y.o. female who presents for Routine Visit Patient presents today for Return OB appointment. MEDICATIONS Current Outpatient Medications Medication Instructions labetalol (NORMODYNE) 100 mg, Oral, Daily magnesium oxide (Mag-Ox) 400 mg tablet as directed Orally magnesium oxide (Mag-Ox) 400 MG tablet 1 tablet, Daily NIFEdipine XL (PROCARDIA XL) 60 mg, Oral, Twice a day (mid-day and evening), Take 1 tablet in the am. Do not crush, chew, or split. Btuthitr-Cmi-Qj-FA ( 1 + IRON PO) sertraline (ZOLOFT) 50 mg, Every 24 hours ALLERGIES No Known Allergies PROBLEMS Active Ambulatory Problems Diagnosis Date Noted Fallopian tube disorder 07/30/2024 PCOS (polycystic ovarian syndrome) 07/30/2024 induced hypertension, antepartum ([facility]) 04/25/2025 Vitamin D deficiency 05/23/2025 H/O pre-eclampsia in prior , currently ([facility]) 05/23/2025 Resolved Ambulatory Problems Diagnosis [...] arthritis Mother Renee Arroyo Other (HTN) Father Jose Luis Arroyo Diabetes Father Jose Luis Arroyo Other (epilepsy) Brother Pancreatic cancer Maternal Grandfather Mack Robles Cancer Maternal Grandfather Mack Robles Heart failure Father's Brother Chacorta Cruz Heart failure Father's Brother Chacorta Cruz Heart failure Father's Brother Chacorta Arroyo Heart [...] nursing note reviewed. Exam conducted with a clay grinder present. Vitals: Estimated body mass index is 44.26 kg/m?? as calculated from the following: Height as of 06/11/24: 5' 8 . Weight as of this encounter: 291 lb 1.9 oz. BP: 122/68 Patient's last menstrual period was 12/26/2024. Assessment/Plan ICD-10-CM 1. 31 weeks gestation of ([facility]) Z3A.31 POCT urinalysis dipstick manually resulted 2. Third trimester ([facility]) Z34.93 POCT urinalysis dipstick manually resulted 3. H/O pre-eclampsia in prior , currently ([facility]) O09.299 4. Vitamin D deficiency E55.9 Assessment/Plan Return OB: Patient presents today for a routine obstetrics appointment. Patient is currently 31w6d . Patient states she is doing well but has complaints of being tired due to current . Patient has verbalizes frequent movement. labor precautions was discussed/given and patient was instructed to perform kick counts three times a day. Discussed early delivery d/t gestational hypertension. Discussed possibility of celestone. Will hold off at this time and continue to monitor BP. Pt to continue NST/BPPs and pt on labetalol 200mg BID. Orders Placed This Encounter Procedures POCT urinalysis dipstick manually resulted Follow Up: Patient is to return to office in 2 week for routine OB appointment. Documented by Kita Griggs LPN on behalf of: Caesar Broderick DO documented in this encounter Plan of Treatment DateTypeDepartmentCare Team (Latest Contact Info)Ftcmrtxajrg85/30/2025 1:20 PM ESTRoutine [facility] [address] [place] [phone] Bethany Simno PA [address] [place], [place] [phone] 12/16/2025 3:00 PM EDTOffice Visit [facility] [address] [place] [address] [place] [address] Caesar Broderick DO [address] [place], [place] [phone] documented as of this encounter Procedures Procedure NamePriorityDate/TimeAssociated DiagnosisCommentsPOCT URINALYSIS YFHYPREILmtxyqx89/16/2025 8:46 AM EST 31 weeks gestation of ([facility]) Third trimester ([facility]) documented in this encounter Results * (ABNORMAL) POCT urinalysis dipstick manually resulted (08/06/2025 8:46 AM EST) ComponentValueRef RangeTest MethodAnalysis TimePerformed AtPathologist SignatureColor, UAYellowClarity, UAClearGlucose, UANegativeNegative - 2000(110) ++++ mg/dLBilirubin, UANegativeNegative - 4(70) +++ mg/dLKetones, UA NegativeNegative - 160(16) ++++ mg/dLSpec Grav, UA1.0201 - 1.03Blood, UA NegativeNegative - 50 Surjit/mcLpH, UA6.05 - 9Protein, UAPositiveNegative - 2000(20) ++++ mg/dLUrobilinogen, UA1.00.2 - 12 mg/dLLeukocytes, UA3+Negative - 500+++ Kaleigh/mcLNitrite, UANegativeNegative - PositiveSpecimen (Source) Anatomical Location / LateralityCollection Method / VolumeCollection Time Received RtgmNclkj99/16/2025 8:46 AM EST Narrative Authorizing ProviderResult TypeResult StatusCorey Davie DOPOINT OF CARE TEST ENTER/EDIT ORDERABLESFinal Result documented in this encounter Visit Diagnoses Diagnosis 31 weeks gestation of ([facility]) Third trimester ([facility]) state, incidental H/O pre-eclampsia in prior , currently ([facility]) Vitamin D deficiency documented in this encounter Care Teams Team MemberRelationshipSpecialtyStart DateEnd Date Judy Caal PCP - [facility]02/20/24documented as of this encounter
--- OUTSIDE RECORDS SUMMARY | 2025-08-20 10:11 | XMS_ITS | Encounter Summary ---
Author Organization [facility] tem Address [id number] [address] [place] [address] Care Team Providers Care Communication Skills Instructor Name Role Phone Services, [facility] Primary Care Provider Reason for Visit * ReasonCommentsMed Refill Encounter Details DateTypeDepartmentCare Team (Latest Contact Info)Siolomgwafj45/28/2025Refill Maternal- Medicine at [facility] [address] [place] [address] Sheila Cruz MD [address] [facility] 1[address] [place] [address] Anxiety disorder affecting , antepartum Social History Tobacco UseTypesPacks/DayYears UsedDateSmoking Tobacco: NeverSmokeless [...] to get more.Never True07/30/2025 Estimated Date of IdnxjffbGgmenmeqYft12/11/2026Based on last menstrual period of 12/26/2024Sex and Gender InformationValueDate RecordedSex Assigned at BirthNot on fileLegal XppVidoeu35/09/2023 2:11 PM ESTGender IdentityNot on fileSexual OrientationNot on filedocumented as of this encounter Plan of Treatment DateTypeDepartmentCare Team (Latest Contact Info)Dfvxdzftwit40/15/2026 2:00 PM ESTTelemedicine Maternal- Medicine at [facility] [address] [place] [address] Sheila Cruz MD [address] [facility] [address] [place] [address] documented as of this encounter Visit Diagnoses Diagnosis Anxiety disorder affecting , antepartum documented in this encounter Care Teams Team MemberRelationshipSpecialtyStart DateEnd Date Services, [facility] [address] [place] PCP - GeneralFamily Medicine11/03/24documented as of this encounter
--- OUTSIDE RECORDS SUMMARY | 2025-08-20 10:12 | XMS_ITS | Encounter Summary ---
Author Organization [facility] Address [address] [place] [address] Care Team Providers Care Land Surveyor Manager Name Role Phone Judy Caal Unavailable Unavailable Encounter Details DateTypeDepartmentCare Team (Latest Contact Info)Nsxvdlcmrcq24/26/2025linisync Result Encounter [facility] Department Unsolicited Israel Broderick DO [address] [facility] [address] [place], [place] [id number] Social History Tobacco UseTypesPacks/DayYears UsedDateSmoking Tobacco: NeverSmokeless Tobacco: NeverAlcohol UseStandard Drinks/WeekCommentsNever0 (1 standard drink = 0.6 oz pure alcohol)PHQ-2AnswerDate RecordedPatient Health Questionnaire-2 Score0 07/30/2025Estimated Date of XjrvlztkOcxgitvxIdk22/11/2026Based on last menstrual period of 12/26/2024Sex and Gender InformationValueDate RecordedSex Assigned at BirthNot on fileLegal JrjRmzcsw52/06/2024 9:48 AM EDTGender Identity Not on fileSexual OrientationNot on filedocumented as of this encounter Plan of Treatment DateTypeDepartmentCare Team (Latest Contact Info)Dddcbamcvyl77/30/2025 1:20 PM ESTRoutine [facility] [place] [facility] [address] [facility] [place] [address] Bethany Simon PA [address] [facility] [address] [place], [place] [address] 12/16/2025 3:00 PM EDTOffice Visit [facility] [place] [facility] [address] [facility] [place] [phone] Israel Broderick, DO [address] [facility] [place] [address] documented as of this encounter Procedures Procedure NamePriorityDate/TimeAssociated DiagnosisCommentsUS OB BPP W NON-FCAIXU5108/16/2025 9:10 PM EST documented in this encounter Results * US OB BPP W NON-STRESS (08/16/2025 9:10 PM EST)Anatomical Region LateralityModalityOtherSpecimen (Source)Anatomical Location / Laterality Collection Method / VolumeCollection TimeReceived Time08/16/2025 9:10 PM EST Narrative 08/16/2025 9:13 PM EST The [facility] ?[address] ? [place] [address] ? Ultrasound Report ? Signed ? Patient: ELLEN RAMIRES ?MR#: [id number] ?? : 1990 ?Acct:[id number] ?? Age/Sex: 35 / F ?ADM Date: 08/16/25 ?? Loc: US ? Attending Dr: Israel Broderick D.O. ? Ordering Physician: Israel Broderick D.O. ?? Date of Service: 08/16/25 ?? Procedure(s): US OB BPP w non-stress ?? Accession Number(s): [id number] ? cc: Israel Broderick D.O.; Judy Yepez FRUIT PACKER ? The [facility] ? [address] ? [place] [address] ? Patient Name: ?? ELLEN RAMIRES ? MRN: [id number] ? date: 1990 ?Sex: F ?? Assigned Patient Location: US ?? Current Patient Location: ? Accession/Order Number: [id number] ?? Exam Date: 08/16/2025 ??15:20 ?Report Date: 08/16/2025 ??21:10 ? At the request of: ?? ISRAEL ??DAVIE ??DO ? Procedure: ??US OB BPP w non-stress ? Ultrasound biophysical profile ? HISTORY: Preeclampsia. ? Adequate breathing movement, gross body movement, tone and ?? amniotic fluid volume for total score of 8 out of 8. ??The amniotic fluid index ?? is 13.4cm within normal limits. ??The heart rate 167 bpm. ? US/US OB BPP w non-stress ?? IMPRESSION: Adequate ultrasound biophysical profile ? Impression dictated by: Jama Gaston M.D. ??08/16/2025 9:10 PM ? Dictation Location: [facility] ? Electronically authenticated by: [id number] ??Y ?? Date: 08/16/2025 ??21:10 ? Dictated By: ?Jama Gaston D.O. ? Signed By: ?08/16/253 ? DD/ ? TD/TT: ? Tower Cleaner: Procedure Note Radiology, Radiologist, - 08/16/2025 [place] [address] Ultrasound Report Signed Patient: ELLEN RAMIRES R#: [id number] : 1990Acct:[id number] Age/Sex: 35 / FADM Date: 08/16/25 Loc: US Attending Dr: Israel Broderick D.O. Ordering Physician: Israel Broderick D.O. Date of Service: 08/16/25 Procedure(s): US OB BPP w non-stress Accession Number(s): [id number] cc: Israel Broderick D.O.; Judy Yepez NP The [address] [address] Patient Name: ELLEN RAMIRES MRN: [id number] date: 1990 Sex: F Assigned Patient Location: Current Patient Location: Accession/Order Number: [id number] Exam Date: 08/16/2025 15:20 Report Date: 08/16/2025 21:10 At the request of: ISRAEL BRODERICK DO Procedure: US OB BPP w non-stress Ultrasound biophysical profile HISTORY: Preeclampsia. Adequate breathing movement, gross body movement, tone and amniotic fluid volume for total score of 8 out of 8. The amniotic fluidindex is 13.4cm within normal limits. The heart rate 167 bpm. US/US OB BPP w non-stress IMPRESSION: Adequate ultrasound biophysical profile Impression dictated by: Jama Gaston M.D. 08/16/2025 9:10 PM Dictation Location: [facility] Electronically authenticated by: [id number] Y Date: 1:10 Dictated By: Jama Gaston D.O. Signed By:08/16/252112 DD/ 09 TD/TT: Tower Cleaner: Authorizing ProviderResult TypeResult StatusCorey Davie DOCLINISYNC IMAGINGFinal Result documented in this encounter Visit Diagnoses Not on filedocumented in this encounter Care Teams Team MemberRelationshipSpecialtyStart DateEnd Date Judy Caal PCP - [facility]02/20/24documented as of this encounter
--- OUTSIDE RECORDS SUMMARY | 2025-08-20 10:12 | XMS_ITS | Encounter Summary ---
Author Organization [facility] Address [address] [place] [address] Care Team Providers Care Hot Tamale Man Name Role Phone Judy Caal Unavailable Unavailable Encounter Details DateTypeDepartmentCare Team (Latest Contact Info)Ljelqoqceuy77/16/2025bstract LIANA HEAD [address] [facility] [place] [address] Caesar Broderick DO [address] [facility] [address] [place], [facility] Social History Tobacco UseTypesPacks/DayYears UsedDateSmoking Tobacco: NeverSmokeless Tobacco: NeverAlcohol UseStandard Drinks/WeekCommentsNever0 (1 standard drink = 0.6 oz pure alcohol)PHQ-2AnswerDate RecordedPatient Health Questionnaire-2 Score0 07/30/2025Estimated Date of GhcbgphhIxigmfvyEox25/11/2026ased on last menstrual period of 12/26/2024Sex and Gender InformationValueDate RecordedSex Assigned at BirthNot on fileLegal ZolStxuyc59/06/2024 9:48 AM EDTGender Identity Not on fileSexual OrientationNot on filedocumented as of this encounter Plan of Treatment DateTypeDepartmentCare Team (Latest Contact Info)Pwwdxgbnhsm02/30/2025 1:20 PM ESTRoutine [facility] [address] [facility] [place] [address] Bethany Simon PA [address] [facility] [place] [address] 12/16/2025 3:00 PM EDTOffice Visit [facility] [place] [facility] [address] [facility] [place] [address] Caesar Broderick DO [address] [facility] [place] [address] documented as of this encounter Visit Diagnoses Not on filedocumented in this encounter Care Teams Team MemberRelationshipSpecialtyStart DateEnd Date Judy Caal PCP - [facility]02/20/24documented as of this encounter
--- OUTSIDE RECORDS SUMMARY | 2025-08-20 10:12 | XMS_ITS | Encounter Summary ---
Author Organization [facility] Address [address] [place] [address] Care Team Providers Care Plastics Heat Welder Name Role Phone Judy Caal Unavailable Unavailable Encounter Details DateTypeDepartmentCare Team (Latest Contact Info)Osiqfvbkhkj31/26/2025linisync Result Encounter [facility] Unsolicited Israel Broderick DO [address] [place], [place] [id number] Social History Tobacco UseTypesPacks/DayYears UsedDateSmoking Tobacco: NeverSmokeless Tobacco: NeverAlcohol UseStandard Drinks/WeekCommentsNever0 (1 standard drink = 0.6 oz pure alcohol)PHQ-2AnswerDate RecordedPatient Health Questionnaire-2 Score0 07/30/2025Estimated Date of IrogrjdxZzddjnqwIiv75/11/2026Based on last menstrual period of 12/26/2024Sex and Gender InformationValueDate RecordedSex Assigned at BirthNot on fileLegal EewKezdfl79/06/2024 9:48 AM EDTGender Identity Not on fileSexual OrientationNot on filedocumented as of this encounter Plan of Treatment DateTypeDepartmentCare Team (Latest Contact Info)Fcwnvpstwsi20/30/2025 1:20 PM ESTRoutine [facility] [address] [place] [address] Bethany Simon PA [address] [place], [place] [id number] 12/16/2025 3:00 PM EDTOffice Visit [facility] [facility] [address] [place] [address] Israel Broderick, DO [address] [place] [address] documented as of this encounter Procedures Procedure NamePriorityDate/TimeAssociated DiagnosisCommentsUS OB GROWTH 08/16/2025 9:09 PM EST documented in this encounter Results * US OB GROWTH (08/16/2025 9:09 PM EST)Anatomical RegionLateralityModalityOther Specimen (Source)Anatomical Location / LateralityCollection Method / Volume Collection TimeReceived Time08/16/2025 9:09 PM EST Narrative 08/16/2025 9:12 PM EST [facility] ?[address] ? [place] [address] ? Ultrasound Report ? Signed ? Patient: ELLEN RAMIRES ?MR#: [id number] ?? : 1990 ?Acct:[id number] ?? Age/Sex: 35 / F ?ADM Date: 08/16/25 ?? Loc: US ? Attending Dr: Israel Broderick D.O. ? Ordering Physician: Israel Broderick D.O. ?? Date of Service: 08/16/25 ?? Procedure(s): US OB growth ?? Accession Number(s): [id number] ? cc: Israel Broderick D.O.; Judy Yepez HOGSHEAD INSPECTOR ? [facility] ? [address] ? [place] [address] ? Patient Name: ?? ELLEN RAMIRES ? MRN: [id number] ? date: 1990 ?Sex: F ?? Assigned Patient Location: [place] ?? Current Patient Location: ? Accession/Order Number: [id number] ?? Exam Date: 08/16/2025 ??15:20 ?Report Date: 08/16/2025 ??21:09 ? At the request of: ?? ISRAEL ??DAVIE ??DO ? Procedure: ??US OB growth ? Limited pelvic ultrasound ? HISTORY: Hypertension ? Limited assessment for growth. ??Fetus in cephalic presentation with ?? longitudinal lie. ??Amniotic fluid index 13.4 cm. ??Largest pocket measures 4.4 ?? cm. ?? heart rate 167 bpm. ??The gestational age by ultrasound 35 weeks 2 ?? days consistent with estimated delivery date of delivery 120 01/27/2026. ? Estimated weight 2650 g which is in the 93.5 percentile. ??Abdominal ?? circumference greater than 97%. ? US/US OB growth ?? IMPRESSION: Single live intrauterine gestation 35 weeks 2 days. ? Impression dictated by: Jama Gaston M.D. ??08/16/2025 9:09 PM ? Dictation Location: RADIO-PC-20 ? Electronically authenticated by: [id number] ??Y ?? Date: 08/16/2025 ??21:09 ? Dictated By: ?Jama Gaston D.O. ? Signed By: ?08/16/252111 ? DD/ 2109 ? TD/TT: ? Gift Consultant: Procedure Note Radiology, Radiologist, MD - 08/16/2025 [place] [address] Ultrasound Report Signed Patient: ELLEN RAMIRES JMR#: [id number] : 1990Acct:[id number] Age/Sex: 35 / FADM Date: 08/16/25 Loc: US Attending Dr: Israel Broderick D.O. Ordering Physician: Israel Broderick D.O. Date of Service: 08/16/25 Procedure(s): US OB growth Accession Number(s): [id number] cc: Israel Broderick D.O.; Judy Yepez NP The [address] [address] Patient Name: ELLEN RAMIRES MRN: [id number] date: 1990 Sex: F Assigned Patient Location: [place] Current Patient Location: Accession/Order Number: [id number] Exam Date: 08/16/2025 15:20 Report Date: 08/16/2025 21:09 At the request of: ISRAEL BRODERICK DO Procedure: US OB growth Limited pelvic ultrasound HISTORY: Hypertension Limited assessment for growth. Fetus in cephalic presentation with longitudinal lie. Amniotic fluid index 13.4 cm. Largest pocket measures4.4 cm. heart rate 167 bpm. The gestational age by ultrasound 35 weeks2 days consistent with estimated delivery date of delivery 120 01/27/2026. Estimated weight 2650 g which is in the 93.5 percentile. Abdominal circumference greater than 97%. US/US OB growth IMPRESSION: Single live intrauterine gestation 35 weeks 2 days. Impression dictated by: Jama Gaston M.D. 08/16/2025 9:09 PM Dictation Location: [employer] Electronically authenticated by: [id number] Y Date: 1:09 Dictated By: Jama Gaston D.O. Signed By:08/16/252111 DD/ 08 TD/TT: Gift Consultant: Authorizing ProviderResult TypeResult StatusCorey Davie DOCLINISYNC IMAGINGFinal Result documented in this encounter Visit Diagnoses Not on filedocumented in this encounter Care Teams Team MemberRelationshipSpecialtyStart DateEnd Date Judy Caal PCP - [facility]02/20/24documented as of this encounter
--- OUTSIDE RECORDS SUMMARY | 2025-08-20 10:12 | XMS_ITS | Clinical Summary ---
Author Organization [facility] Healthcare Address [address] [place] [address] Care Team Providers Care Category Development Analyst Name Role Phone Judy Caal Unavailable [...] MG 24 hr tablet Indications:Chronic hypertension affecting ([facility])Take 1 tablet (60 mg) by mouth at noon and 1 tablet (60 mg) in the evening. Take 1 tablet in the am. Do not crush, chew, or split. 30 tablet 6Active Glmmdaql-Cxg-Hf-FA ( 1 + IRON PO) PrenatalActive magnesium oxide (Mag-Ox) 400 mg tablet as directed OrallyActive magnesium oxide (Mag-Ox) 400 MG tablet Take 1 tablet by mouth Daily5Active metFORMIN XR (Glucophage-XR) 500 MG 24 hr tablet 1 (one) time each day at the same time08/06/2025Discontinued Active Problems ProblemNoted DateDiagnosed DateVitamin D dnoebnegcd07/02/2025H/O pre-eclampsia in prior , currently ([facility])05/23/2025Pregnancy induced hypertension, antepartum ([facility])04/25/2025Fallopian tube joprfulm14/09/2024 PCOS (polycystic ovarian syndrome)07/30/2024Estimated Date of Delivery MhsbxbmxJky52/11/2026ased on last menstrual period of 12/26/2024 Encounters DateTypeDepartmentCare TzgkUtylrqepohs81/26/2025linisync Result Encounter [facility] External Department Unsolicited Israel Broderick, DO 08/16/2025linisync Result Encounter NOMS External Department Unsolicited Israel Broderick, DO 08/09/2025linisync Result Encounter NOMS External Department Unsolicited Israel Broderick, DO 08/06/2025 8:40 [place] [address] Israel Broderick, DO 31 weeks gestation of ([facility]); Third trimester ([facility]); H/O pre-eclampsia in prior , currently ([facility]); Vitamin D iduokrcirj22/16/2025bstract [facility] HEAD [address] [place] [address] Israel Broderick, DO 08/06/2025amboo flowsheet [facility] [address] [facility] [place] [address] Israel Broderick, DO 08/05/20253088Flwdjr18/12/2025linisync Result Encounter NOMS External Department Unsolicited Israel Broderick, DO 08/02/2025linisync Result Encounter NOMS External Department Unsolicited Israel Broderick, DO 07/30/2025Patient Outreach [facility] [address] [place] [address] Bethany Sheehan LPN 07/24/2025 11:20 AM ESTRoutine [facility] HEAD [address] [place] [address] Israel Broderick, DO Third trimester ([facility]); 30 weeks gestation of ([facility])5Bamboo flowsheet [facility] [place] [address] Israel Broderick, DO 07/23/20254413Vmwnwq68/02/2025Clinisync Result Encounter NOMS External Department Unsolicited Israel Broderick, DO 5Clinisync Result Encounter NOMS External Department Unsolicited DavieIsrael koch, DO 5Clinisync Result Encounter NOMS External Department Unsolicited Israel Broderick, DO 07/09/2025 1:20 PM ESTRoutine [facility] Jerome [facility] [place] [address] Bethany Simon, PA 27 weeks gestation of ([facility]); Second trimester ([facility]); H/O pre-eclampsia in prior , currently ([facility]); Vitamin D deficiency; Chronic hypertension affecting ([facility]); BV (bacterial vaginosis)5Bamboo flowsheet [facility] HEAD [address] [place] [address] Bethany Simon PA 5Clinisync Result Encounter NOMS External Department Unsolicited Israel Broderick, DO 07/05/2025Telephone [facility] Jerome [facility] [place] [address] Tsering Willingham MA 5Clinisync Result Encounter NOMS External Department Unsolicited Israel Broderick, DO 07/02/2025Patient Outreach [facility] [address] [place] [address] Bethany Sheehan LPN 06/24/2025 1:50 PM ESTRoutine [facility] HEAD [address] [place] [address] Israel Broderick, DO Second trimester ([facility]); 25 weeks gestation of ([facility]); H/O pre-eclampsia in prior , currently ([facility]); Vitamin D deficiency; Chronic hypertension affecting ([facility]); Diabetes mellitus ksbzpuzke46/03/2025amboo flowsheet [facility] OBGYN [address] [facility] [place] [address] Israel Broderick DO 06/23/20255849Cgbamt43/15/2025 8:50 AM EDTRoutine [facility] LAWSONGYN [address] [facility] [place] [address] Rosie Qiu NP Second trimester ([facility]); 23 weeks gestation of ([facility])06/05/2025amboo flowsheet [facility] [address] [facility] [place] [address] Rosie Qiu NP 06/04/2025Patient Outreach [facility] [address] [place] [address] Bethany Sheehan LPN 05/31/2025bstract [facility] [address] [place] [address] Bethany Sheehan LPN 05/30/2025 3:20 PM EDTRoutine [facility] HEAD [address] [facility] [place] [address] Rosie Qiu NP Chronic hypertension affecting ([facility]) (Primary Dx); Second trimester ([facility]); 22 weeks gestation of ([facility])05/30/2025amboo flowsheet [facility] WUN [address] [facility] [place] [address] Rosie Qiu NP 05/29/20259976Imftif94/07/2025Telephone [facility] LAWSONGYRafal [address] [facility] [place] [address] Sung Melanie, [place] 05/23/2025 2:30 PM EDTRoutine [facility] HEAD [address] [facility] [place] [address] Rosie Qiu, JEM Second trimester ([facility]); 21 weeks gestation of ([facility]); induced hypertension, antepartum ([facility]); Vitamin D deficiency; H/O pre-eclampsia in prior , currently ([facility])05/23/2025 Clinisync Result Encounter NOMS External Department Unsolicited Israel Broderick DO 05/23/2025amboo flowsheet [facility] [address] [facility] [place] [address] Rosie Qiu NP 05/22/2025Travelfrom Last 3 Months Family History Medical HistoryRelationNameCommentsepilepsyBrotherDiabetesFatherDerrick [...] 0.6 oz pure alcohol)PHQ-2AnswerDate RecordedPatient Health Questionnaire-2 Ptscx826/04/2025 Estimated Date of UrtjheopMtapgohmFjj15/11/2026ased on last menstrual period of 12/26/2024Sex and Gender InformationValueDate RecordedSex Assigned at BirthNot on fileLegal JceZqdpex21/06/2024 9:48 AM EDTGender IdentityNot on file Sexual OrientationNot on file Last Filed Vital Signs Vital SignReadingTime TakenCommentsBlood Wgqcvccm736/6808/06/2025 8:43 AM EST Pulse--Temperature--Respiratory Rate--Oxygen Saturation--Inhaled Oxygen Concentration--Srmhur356 kg (291 lb 1.9 oz)08/06/2025 8:43 AM MIQFjkkrf889.7 cm (5' 8 )06/11/2024 2:39 PM EDTBody Mass Index44.261 2:39 PM EDT Plan of Treatment DateTypeDepartmentCare Team (Latest Contact Info)Zdhspchjtev24/30/2025 1:20 PM ESTRoutine NOM[facility]rent HEAD [address] [facility] [place] [address] Bethany Simon PA [address] [facility] [address] [place], [place] [address] 12/16/2025 3:00 PM EDTOffice Visit LIANA HEAD [address] [facility] [place] [address] Israel Broderick DO [address] [facility] [address] [place], [place] [address] Health MaintenanceDue DateLast DoneCommentsInfluenza Vaccine (#1)04/22/2025 HPV/Ivximb63//ervical Cancer Kixdtffkf70/21/2028Pap Smear , 3Pneumococcal Vaccine: Pediatrics (0 to 5 Years) and At-Risk Patients (6 to 64 Years)Aged OutNo longer eligible based on patient's age to complete this topic Procedures Procedure NamePriorityDate/TimeAssociated DiagnosisCommentsUS OB BPP W NON-QSCWEO9808/16/2025 9:10 PM EST US OB FUENAB8508/16/2025 9:09 PM EST US OB BPP W NON-LBMGRW6708/09/2025 10:47 AM EST POCT URINALYSIS WRYMHXTVZvfzmnw55/16/2025 8:46 AM EST 31 weeks gestation of ([facility]) Third trimester ([facility]) US OB BPP W NON-OCPJGX9108/02/2025 4:49 PM EST US OB ZXXWMA4708/02/2025 4:46 PM EST POCT URINALYSIS WKIFATFYIttxuao98/03/2025 11:40 AM EST 30 weeks gestation of ([facility]) US OB BPP W NON-ADRQTM7707/23/2025 10:49 AM EST US OB PVTFAH1707/12/2025 2:57 PM EST US OB BPP W NON-EUBARA8007/12/2025 2:56 PM EST POCT URINALYSIS YRUUZZITWlrrcqr46/18/2025 1:46 PM EST 27 weeks gestation of ([facility]) Second trimester ([facility]) GLUCOSE TOLERANCE 3 MBUEMgziyvn80/15/2025 8:09 AM EST ALL CBC WITH AUTO KXVWHhrvjel59/15/2025 8:09 AM EST GLUCOSE 1 VJMRLuauxxb94/13/2025 10:25 AM EST ALL CBC WITH AUTO YKDDBnpcoog71/13/2025 10:25 AM EST POCT URINALYSIS PYUJEVYAFnbusji60/03/2025 1:51 PM EST Second trimester ([facility]) POCT URINALYSIS GLLAZGCMSybcbuf86/15/2025 9:03 AM EDT Second trimester ([facility]) POCT URINALYSIS SHKNBROHJfusbss10/09/2025 3:24 PM EDT 22 weeks gestation of ([facility]) AFP, SERUM, OPEN SPINA PZDHZOBlwbjyp68/02/2025 2:30 PM EDT PAP KTVQJQvhxqrx52/21/2025 12:00 AM EDTfrom Last 3 Months or Most Recently Relevant to Health Maintenance Results * US OB BPP W NON-STRESS (08/16/2025 9:10 PM EST) Only the most recent of5 resultswithin the time period is included. Anatomical RegionLateralityModalityOtherSpecimen (Source)Anatomical Location / LateralityCollection Method / VolumeCollection TimeReceived Time08/16/2025 9:10 PM EST Narrative 08/16/2025 9:13 PM EST [facility] ?[address] ? [place] [address] ? Ultrasound Report ? Signed ? Patient: SANTHOSH RAMIRESJULISSA Lockwood ?MR#: [id number] ?? : 1990 ?Acct:[id number] ?? Age/Sex: 35 / F ?ADM Date: 08/16/25 ?? Loc: US ? Attending Dr: Israel Broderick D.O. ? Ordering Physician: Israel Broderick D.O. ?? Date of Service: 08/16/25 ?? Procedure(s): US OB BPP w non-stress ?? Accession Number(s): [id number] ? cc: Israel Broderick D.O.; Judy Yepez PULP GRINDER ? [facility] ? [address] ? [place] [address] ? Patient Name: ?? ELLEN RAMIRES ? MRN: [facility]:[id number] ? date: 1990 ?Sex: F ?? Assigned Patient Location: ?? Current Patient Location: ? Accession/Order Number: [id number] ?? Exam Date: 08/16/2025 ??15:20 ?Report Date: [...] M.D. ??08/16/2025 9:10 PM ? Dictation Location: RADIO-PC-20 ? Electronically authenticated by: [id number] ??Y ?? Date: 08/16/2025 ??21:10 ? Dictated By: ?Jama Gaston D.O. ? Signed By: ?08/16/252112 ? DD/ ? TD/TT: ? Retail Salesworker: Procedure Note Radiology, Radiologist, MD - 08/16/2025 [place] [address] Ultrasound Report Signed Patient: ELLEN RAMIRES JMR#: [id number] : 1990Acct:[id number] Age/Sex: 35 / FADM Date: 08/16/25 Loc: US Attending Dr: Israel Broderick D.O. Ordering Physician: Israel Broderick D.O. Date of Service: 08/16/25 Procedure(s): US OB BPP w non-stress Accession Number(s): [id number] cc: Israel Broderick D.O.; Judy Yepez NP The [address] [address] Patient Name: ELLEN RAMIRES MRN: [id number] date: 1990 Sex: F Assigned Patient Location: Current Patient Location: Accession/Order Number: [id number] Exam Date: 08/16/2025 15:20 Report Date: 08/16/2025 [...] Gaston M.D. 08/16/2025 9:10 PM Dictation Location: [place] Electronically authenticated by: [id number] Y Date: 1:10 Dictated By: Jama Gaston D.O. Signed By:08/16/252112 DD/ 09 TD/TT: Retail Salesworker: Authorizing ProviderResult TypeResult StatusCorenitesh Broderick DOCLINISYNC IMAGINGFinal Result * US OB GROWTH (08/16/2025 9:09 PM EST) Only the most recent of3 resultswithin the time period is included. Anatomical RegionLateralityModalityOtherSpecimen (Source)Anatomical Location / LateralityCollection Method / VolumeCollection TimeReceived Time08/16/2025 9:09 PM EST Narrative 08/16/2025 9:12 PM EST [facility] ?[address] ? [place] [address] ? Ultrasound Report ? Signed ? Patient: ELLEN RAMIRES ?MR#: [id number] ?? : 1990 ?Acct:[id number] ?? Age/Sex: 35 / F ?ADM Date: 08/16/25 ?? Loc: US ? Attending Dr: Israel Broderick D.O. ? Ordering Physician: Israel Broderick D.O. ?? Date of Service: 08/16/25 ?? Procedure(s): US OB growth ?? Accession Number(s): [id number] ? cc: Israel Broderick D.O.; Judy Yepez PULP GRINDER ? [facility] ? [address] ? [place] [address] ? Patient Name: ?? ELLEN RAMIRES ? MRN: [facility]:[id number] ? date: 1990 ?Sex: F ?? Assigned Patient Location: ?? Current Patient Location: ? Accession/Order Number: [id number] ?? Exam Date: 08/16/2025 ??15:20 ?Report Date: [...] M.D. ??08/16/2025 9:09 PM ? Dictation Location: [place] [address] ? Electronically authenticated by: [id number] ??Y ?? Date: 08/16/2025 ??21:09 ? Dictated By: ?Jama Gaston D.O. ? Signed By: ?08/16/252 ? DD/ 08 ? TD/TT: ? Retail Salesworker: Procedure Note Radiology, Radiologist, - 08/16/2025 [place] [address] Ultrasound Report Signed Patient: ELLEN RAMIRES JMR#: [id number] : 1990Acct:[id number] Age/Sex: 35 / FADM Date: 08/16/25 Loc: US Attending Dr: Israel Broderick D.O. Ordering Physician: Israel Broderick D.O. Date of Service: 08/16/25 Procedure(s): US OB growth Accession Number(s): [id number] cc: Israel Broderick D.O.; Judy Yepez NP The [address] [address] Patient Name: ELLEN RAMIRES MRN: [id number] date: 1990 Sex: F Assigned Patient Location: Current Patient Location: Accession/Order Number: [id number] Exam Date: 08/16/2025 15:20 Report Date: 08/16/2025 [...] Gaston M.D. 08/16/2025 9:09 PM Dictation Location: [place] [address] Electronically authenticated by: [id number] Y Date: 1:09 Dictated By: Jama Gaston D.O. Signed By:08/16/252111 DD/ 08 TD/TT: Retail Salesworker: Authorizing ProviderResult TypeResult StatusCorey Davie DOCLINISYNC IMAGINGFinal Result * (ABNORMAL) POCT urinalysis dipstick manually resulted (08/06/2025 8:46 AM EST) Only the most recent of6 resultswithin the time period is included. ComponentValueRef RangeTest MethodAnalysis TimePerformed AtPathologist Signature Color, UAYellowClarity, UAClearGlucose, UANegativeNegative - 1999(110) ++++ mg/dLBilirubin, UANegativeNegative - 4(70) +++ mg/dLKetones, UANegativeNegative - 160(16) ++++ mg/dLSpec Grav, UA1.0201 - 1.03Blood, UANegativeNegative - 50 Surjit/mcLpH, UA6.05 - 9Protein, UAPositiveNegative - 2000(20) ++++ mg/dL Urobilinogen, UA1.00.2 - 12 mg/dLLeukocytes, UA3+Negative - 500+++ Kaleigh/mcL Nitrite, UANegativeNegative - PositiveSpecimen (Source)Anatomical Location / LateralityCollection Method / VolumeCollection TimeReceived FryaXtsdr77/16/2025 8:46 AM EST Narrative Authorizing ProviderResult TypeResult [...] ORDERABLES Final ResultPerforming OrganizationAddressCity/State/ZIP CodePhone Number CLINISYNC [facility] * (ABNORMAL) ALL CBC WITH AUTO [...] - 35.2 g/dLTBHTBH RDW13.011.0 - 15.0 %TBHTBH [id number] - 450 10 3/uLTBHTBH MPV10.59.5 - 13.5 [...] 8:09 AM EST07/06/2025 8:10 AM EST Narrative CLINISYDC - 07/06/2025 8:58 AM EST Authorizing ProviderResult TypeResult StatusCorey Davie DOCLINISYNCFinal Result Performing OrganizationAddressCity/State/ZIP CodePhone Number [facility] * (ABNORMAL) GLUCOSE 1 HOUR (07/04/2025 10:25 AM EST)ComponentValueRef RangeTest MethodAnalysis TimePerformed AtPathologist SignatureGLUCOSE 1 GNBV107(H)<130 mg/dLTBHSpecimen (Source)Anatomical Location / LateralityCollection Method / VolumeCollection TimeReceived Time07/04/2025 10:25 AM EST07/04/2025 10:33 AM EST Narrative CLINISYNC - 07/04/2025 11:32 AM EST Authorizing ProviderResult TypeResult StatusCorey Davie DOLAB BLOOD ORDERABLES Final ResultPerforming OrganizationAddressCity/State/ZIP CodePhone Number [facility] * AFP, SERUM, OPEN SPINA BIFIDA (05/23/2025 2:30 PM EDT)ComponentValueRef Range Test MethodAnalysis TimePerformed AtPathologist SignatureRESULTSReport.TBHTEST RESULTS:*Screen Negative*.TBHGEST. AGE ON COLLECTION DATE21.1. weeksTBHGESTAT. AGE BASED ONLMP.TBHComment: Recalculations are not recommended when gestational dating by LMP and ultrasound are within 10 days. MATERNAL AGE AT EDD35.5. yrTBHRACECaucasian.USINXYJUU530. lbsTBHINSULIN DEP DIABETESNo.TBHMULTIPLE GESTATIONNo.TBHAFP VALUE38.2. ng/mLTBHAFP MOM0.85.TBHOSBR RISK 1 [id number].TBHINTERPRETATIONComment.TBHComment: Interpretation: Screen Negative This result is screen [...] Customer Services to discuss available options. ??The [employer] recommends amniocentesis be offered to women age 35 and older. COMMENT:Comment.TBHComment: Gema Ortez, Ph.D., [facility] Director References: Available Upon Request. Multiples Of Median Cutoffs ?For AFP Elevations Kumar ?? 2.5 ? Black ?2.8 IDD ? 2.0 ? Twins ?4.5 ?Abbreviation Definitions IDD - Insulin Dep Diabetes OSBR - Open Spina Bifida Risk For further inquiries contact [facility] at [phone]. This test was developed and its performance characteristics determined by [employer]. It has not been cleared or approved by the Food and Drug Administration. Performed at: ??TG - [facility] [address] [place], [place] ??[id number] Patternmaker Apprentice Wood: Jesus Saleh [facility], Phone: ??[phone] Specimen (Source)Anatomical Location / LateralityCollection Method / Volume Collection TimeReceived Time05/23/2025 2:30 PM EDT1 2:40 PM EDT Narrative CLINISYNC - 05/25/2025 1:07 AM EDT N N LMP [id number] 2 9 N 1 282 N N N N N White/ Authorizing ProviderResult TypeResult StatusCorey Davie DOLAB BLOOD ORDERABLES Final ResultPerforming OrganizationAddressCity/State/ZIP CodePhone Number [facility]INISYNC [facility] * Pap Smear (12/10/2024 12:00 AM EDT)Specimen (Source)Anatomical Location / LateralityCollection Method / VolumeCollection TimeReceived TimeSwabCervical swab / Unknown Narrative Authorizing ProviderResult TypeResult StatusFazio Nurse Noms Bcp ObLAB CYTOLOGY ORDERABLESFinal ResultPerforming OrganizationAddressCity/State/ZIP CodePhone Number EXTERNAL LAB from Last 3 Months or Most Recently Relevant to Health Maintenance Insurance Care Teams Team MemberRelationshipSpecialtyStart DateEnd Date Judy Caal PCP - [facility]02/20/24
--- OUTSIDE RECORDS SUMMARY | 2025-08-20 10:13 | XMS_ITS | Encounter Summary ---
Author Organization [facility] Address [address] [place] [address] Care Team Providers Care Director Of Professional Services Name Role Phone Judy Caal Unavailable Unavailable Encounter Details DateTypeDepartmentCare Team (Latest Contact Info)Vmqlkkjqybm73/16/2025amboo flowsheet NOMTrent HEAD [address] [facility] [place] [address] Caesar Broderick DO [address] [facility] [address] [place], [place] [phone] Social History Tobacco UseTypesPacks/DayYears UsedDateSmoking Tobacco: NeverSmokeless Tobacco: NeverAlcohol UseStandard Drinks/WeekCommentsNever0 (1 standard drink = 0.6 oz pure alcohol)PHQ-2AnswerDate RecordedPatient Health Questionnaire-2 Score0 07/30/2025Estimated Date of PudvmfmdOxuogcxcDyw60/11/2026Based on last menstrual period of 12/26/2024Sex and Gender InformationValueDate RecordedSex Assigned at BirthNot on fileLegal IwuIvglbl21/06/2024 9:48 AM EDTGender Identity Not on fileSexual OrientationNot on filedocumented as of this encounter Plan of Treatment DateTypeDepartmentCare Team (Latest Contact Info)Ymodwbebtus90/30/2025 1:20 PM ESTRoutine [facility] WUN [address] [facility] [place] [address] Bethany Simon PA [address] [facility] [place] [address] 12/16/2025 3:00 PM EDTOffice Visit [facility] HEAD [address] [facility] [place] [address] Caesar Broderick DO [address] [facility] [address] [place], [place] [phone] documented as of this encounter Visit Diagnoses Not on filedocumented in this encounter Care Teams Team MemberRelationshipSpecialtyStart DateEnd Date Judy Caal PCP - [facility]02/20/24documented as of this encounter
--- OUTSIDE RECORDS SUMMARY | 2025-08-20 10:13 | XMS_ITS | Patient Health Record ---
Author Organization [facility] Address [address] [place], [place] [address] Care Team Providers Care Wharf Worker Name Role Phone Sabiha Aviles Primary Care Provider [phone] Merary Espino Unavailable [phone] Noelle Chris Unavailable Judy Yepez Unavailable [phone] Allergies No Known Allergies Results Component Value Reference Range Flag Notes US OB BPP w non-stress Reviewed date:07/24/2025 09:24:52 AM Interpretation: Performing Lab: Notes/Report: Source Facility: [place] [address] Ultrasound Report Signed Patient: ELLEN RAMIRES MR#: [id number] : 1990 Acct:[id number] Age/Sex: 35 / F ADM Date: 07/23/25 Loc: [facility] 250-[address]: Israel Broderick D.O. Ordering Physician: Israel Broderick D.O. Date of Service: 07/23/25 Procedure(s): US OB BPP w non-stress Accession Number(s): [id number] cc: Israel Broderick D.O.; Judy Yepez PARKING ANALYST [place] [address] Patient Name: ELLEN RAMIRES MRN: [id number]:[id number] date: 1990 Sex: F Assigned Patient Location: [facility] Current Patient Location: US Accession/Order Number: [id number] Exam Date: 07/23/2025 10:04 Report Date: 07/23/2025 [...] Florentino M.D. 07/23/2025 10:49 AM Dictation Location: [place] [address] Electronically authenticated by: [id number] Y Date: 07/23/2025 10:49 Dictated By: Kita Florentino M.D. Signed By: 07/23/25 1051 DD/ 1049 TD/TT: Training Engineer: LIPID PANEL WITH REFLEX TO D IRECT LDL Reviewed date:02/08/2025 11:13:42 AM Interpretation: Performing Lab: Notes/Report: CHOLESTEROL 170 100-199 mg/dL QDOBMFELVKTRO40413-191 mg/dLHVLDL-CHOL, LKFYYBLCBY76<30 mg/dLHHDL-CHOL45>=50 mg/dLLLDL-CHOL, INHZWYTNKE88<130 mg/dL ADULT LDL CHOLESTEROL CLASSIFICATION <100mg/dL Optimal [...] AM Interpretation: Performing Lab: Notes/Report:TSH1.690.270-4.200 uIU/mL The [place] [employer] (HUGO) recommends the following reference ranges for TSH levels during : First trimester: 0.1 to 2.5 mIU/L Second trimester: 0.2 to 3.0 mIU/L Third trimester: 0.3 to 3.0 mIU/L FREE T41.120.80-1.90 ng/dLCOMPREHENSIVE METABOLIC PANEL WITH GFR Reviewed date:02/08/2025 08:56:14 AM Interpretation: Performing Lab: Notes/Report:QBXUXAT6215-965 mg/wENAD25-55 mg/dLCALCIUM9.48.6-10.5 mg/dL CREATININE, BLOOD0.710.51-1.15 mg/dLeGFR (2020 CKD-EPI)116>59 mL/min/1.73m2 QDIPUV867549-622 mmol/LPOTASSIUM4.43.5-5.4 mmol/XWUEJOAXW66512-955 mmol/EFA587 18-32 mmol/LANION ZTB767-36 mmol/LT. BILIRUBIN0.2<1.3 mg/dLALK UPKY0189-211 U/L IJS-UAHD992-61 U/DFWP-SWOC555-53 U/LT. PROTEIN6.56.0-8.3 g/dLALBUMIN4.23.5-5.2 g/dLCBC NO DIFF Reviewed date:02/08/2025 11:13:49 AM Interpretation: Performing Lab: Notes/Report:WBC13.83.6-11.0 THDS/CMMHRBC4.253.80-5.20 MILL/RWPXLN81.311.9-16.0 G/DLHCT40.035-47 %REP3704-102 fLMCH31.326.0-33.0 cvBXUJ99.332.0-35.0 g/dlRDW12.8 11.2-14.8 %RSNKCKTA040743-524 THOUS/CMMVITAMIN D 25 HYDROXY Reviewed date:02/08/2025 09:10:44 AM Interpretation: Performing Lab: Notes/Report:VITAMIN D, 25 WZXGCMD80.630.0-100.0 ng/mLL 25-OH VITAMIN D INTERPRETATION Deficiency.... <20.0 ng/ml Insufficiency..20.0-29.0 ng/ml Sufficiency....30.0-100.0 ng/ml Possible Toxicity...>150 ng/ml UNLESS OTHERWISE INDICATED, ALL TESTING PERFORMED AT: [employer] [employer]. [address] [place] [address] HEARING IMPAIRED ITINERANT TEACHER: BARBARA DASH M.D. CLIA NUMBER [id number] CAP ACCREDITATION AUID [id number] Creatinine 24 Hour Urine Reviewed date:05/26/2025 02:26:35 PM Interpretation: Performing Lab: Notes/Report: , [facility] Fjccdm82.4120.00-300.00 mg/dLNTotal Volume 24 Hour Pzsrt6465Bpdkvwipan 24 Hour Hekqj3299.44400.00-1800.00 mg/24 hrH Performing Lab:see noteML - [facility] LBTotal Protein 24 Hour Urine Reviewed date:05/26/2025 02:26:35 PM Interpretation: Performing Lab: Notes/Report: [facility] ,Total Protein Urine Random<6.0<=11.9 mg/dLPerforming Lab:see noteML - [facility] LBUS OB growth Reviewed date:08/19/2025 06:01:04 AM Interpretation: Performing Lab: Notes/Report: Source Facility: [facility]-[address] [place] [address] [place] [address] Ultrasound Report Signed Patient: ELLEN RAMIRES MR#: [id number] : 1990 Acct:[id number] Age/Sex: 35 / F ADM Date: 08/16/25 Loc: US Attending Dr: Israel Broderick D.O. Ordering Physician: Israel Broderick D.O. Date of Service: 08/16/25 Procedure(s): US OB growth Accession Number(s): [id number] cc: Israel Broderick D.O.; Judy Yepez NP [place] [address] Patient Name: ELLEN RAMIRES MRN: [id number] date: 1990 Sex: F Assigned Patient Location: Current Patient Location: Accession/Order Number: [id number] Exam Date: 08/16/2025 15:20 Report Date: 08/16/2025 21:09 At the request of: ISRAEL BRODERICK DO Procedure: US OB growth Limited pelvic ultrasound HISTORY: Hypertension Limited assessment for growth. Fetus in cephalic presentation with longitudinal lie. Amniotic fluid index 13.4 cm. Largest pocket measures 4.4 cm. heart rate 167 bpm. The gestational age by ultrasound 35 weeks 2 days consistent with estimated delivery date of delivery 120 01/27/2026. Estimated weight 2650 g which is in the 93.5 percentile. Abdominal circumference greater than 97%. US/US OB growth IMPRESSION: Single live intrauterine gestation 35 weeks 2 days. Impression dictated by: Jama Gaston M.D. 08/16/2025 9:09 PM Dictation Location: [place] [address] Electronically authenticated by: [id number] Y Date: 08/16/2025 21:09 Dictated By: Jama Gaston D.O. Signed By: 08/16/252111 DD/ 08 TD/TT: Training Engineer:US OB BPP w non-stress Reviewed date:08/19/2025 06:01:04 AM Interpretation: Performing Lab: Notes/Report: Source Facility: [place] [address] [place] [address] Ultrasound Report Signed Patient: ELLEN RAMIRES MR#: [id number] : 1990 Acct:[id number] Age/Sex: 35 / F ADM Date: 08/16/25 Loc: US Attending Dr: Israel Broderick D.O. Ordering Physician: Israel Broderick D.O. Date of Service: 08/16/25 Procedure(s): US OB BPP w non-stress Accession Number(s): [id number] cc: Israel Broderick D.O.; Judy Yepez NP The [place] [address] Patient Name: ELLEN RAMIRES MRN: [facility]:[id number] date: 1990 Sex: F Assigned Patient Location: US Current Patient Location: Accession/Order Number: [id number] Exam Date: 08/16/2025 15:20 Report Date: 08/16/2025 21:10 At the request of: ISRAEL BRODERICK DO Procedure: US OB BPP w non-stress Ultrasound biophysical profile HISTORY: Preeclampsia. Adequate breathing movement, gross body movement, tone and amniotic fluid volume for total score of 8 out of 8. The amniotic fluid index is 13.4cm within normal limits. The heart rate 167 bpm. US/US OB BPP w non-stress IMPRESSION: Adequate ultrasound biophysical profile Impression dictated by: Jama Gaston M.D. 08/16/2025 9:10 PM Dictation Location: [place] [address] Electronically authenticated by: [id number] Y Date: 08/16/2025 21:10 Dictated By: Jama Gaston D.O. Signed By: 08/16/252112 DD/ 09 TD/TT: Training Engineer:US OB BPP w non-stress Reviewed date:08/10/2025 02:34:46 PM Interpretation: Performing Lab: Notes/Report: Source Facility: [place] [address] [place] [address] Ultrasound Report Signed Patient: ELLEN RAMIRES MR#: [id number] : 1990 Acct:[id number] Age/Sex: 35 / F ADM Date: 08/09/25 Loc: [facility] 250-[address]: Israel Broderick D.O. Ordering Physician: Israel Broderick D.O. Date of Service: 08/09/25 Procedure(s): US OB BPP w non-stress Accession Number(s): [id number] cc: Isarel Broderick D.O.; Judy Yepez NP [place] [address] Patient Name: ELLEN RAMIRES MRN: [facility]:[id number] date: 1990 Sex: F Assigned Patient Location: [facility] Current Patient Location: [facility] Accession/Order Number: [id number] Exam Date: 08/09/2025 10:20 Report Date: 08/09/2025 [...] Florentino M.D. 08/09/2025 10:47 AM Dictation Location: [place] [address] Electronically authenticated by: [id number] Y Date: 08/09/2025 10:47 Dictated By: Kita Florentino M.D. Signed By: 08/09/25 1050 DD/ 1047 TD/TT: Training Engineer:AFP, Serum, Open Spina Bifida Reviewed date:05/26/2025 02:17:58 PM Interpretation: Performing Lab: Notes/Report: , [facility]/ N N N N N 282 1 N 9 2 [id number] LMP N NResultsReport.Test Results:*Screen Negative*.Gest. Age on Collection Date21.1. weeksGestat. Age Based OnLMP. Recalculations are not recommended when gestational dating by LMP and ultrasound are within 10 days. Maternal Age At EDD33.5. yrRaceCaucasian.Sfcumi022. lbsInsulin Dep DiabetesNo. Multiple GestationNo.AFP Value38.2. ng/mLAFP MoM0.85.OSBR Risk 1 [id number]. InterpretationComment. Interpretation: Screen Negative This result is [...] Customer Services to discuss available options. The [place] [employer] recommends amniocentesis be offered to women age 35 and older. Comment:Comment. Gema Ortez, Ph.D., [facility] Director References: Available Upon Request. Multiples Of Median Cutoffs For AFP Elevations Kumar 2.5 Black 2.8 IDD 2.0 Twins 4.5 Abbreviation Definitions IDD - Insulin Dep Diabetes OSBR - Open Spina Bifida Risk For further inquiries contact [facility] at [phone]. This test was developed and its performance characteristics determined by [facility]. It has not been cleared or approved by the Food and Drug Administration. Performed at: [facility] [address] [place], [place] [address] Point Of Care Technician: Jesus Saleh [facility], Phone: [phone] Performing Lab:[facility] LBBasic Metabolic Panel Reviewed date:06/23/2025 10:27:19 PM Interpretation: Performing Lab: Notes/Report: [facility] ,Lzvetd165683-507 mmol/LNPotassium3.33.5-5.1 mmol/EZKqpobnuh01407-049 mmol/LN Carbon Hflqlwn37.321.0-32.0 mmol/LNAnion Gap15.4Dgiihqm10058-359 mg/dLHBlood Urea Nitrogen5.07.0-18.0 mg/dLLCreatinine0.570.55-1.02 mg/dLNEstimated GFR ( Claritza>60>=60 mL/min/1.73m 2Estimated GFR (Non- Meghana>60>=60 mL/min/1.73m 2BUN Creatinine Ratio8.2Hmxtbki6.78.5-10.1 mg/dLNPerforming Lab:see noteML - [facility] LBComplete Blood Count Auto Diff Reviewed date:06/23/2025 10:27:19 PM Interpretation: Performing Lab: Notes/Report: [facility] ,White Blood Count14.64.0-11.0 10 3/uLHRed Blood Count3.694.20-5.40 10 6/uLL Hrhaljxjqj86.512.0-16.0 g/cSQXtxvkypidq48.236.0-48.0 %LMean Corpuscular Volume 92.781.0-99.0 fLNMean Corpuscular Qpjvomrzlr73.226.7-34.0 pgNMean Corpuscular HGB Conc33.629.9-35.2 g/dLNRed Cell Distribution Width12.911.0-15.0 %NPlatelet Luitv920373-863 10 3/uLNMean Platelet Uirsur77.49.5-13.5 fLNNeutrophils Percent Auto74.543.0-75.0 %NLymphocytes Percent Auto15.420.5-60.0 %LMonocytes Percent Auto6.71.7-12.0 %NEosinophils Percent Auto1.90.9-7.0 %NBasophils Percent Auto0.3 0.2-2.0 %NImmature Granulocytes Pct Auto1.20.0-0.5 %HNeutrophils Absolute Auto 10.91.4-6.5 10 3/uLHLymphocytes Absolute Auto2.21.2-3.8 10 3/uLNMonocytes Absolute Auto1.00.3-0.8 10 3/uLHEosinophils Absolute Auto0.30.0-0.7 10 3/uLN Basophils Absolute Auto0.00.0-0.1 10 3/uLNImmature Granulocytes Abs Auto0.18 0.00-0.03 10 3/uLHPerforming Lab:see noteML - [facility] LBUA Culture/Micro if Indicated Reviewed date:06/23/2025 10:27:19 PM Interpretation: Performing Lab: Notes/Report: [facility] ,Color UrineLT. YELLOWYELLOWClarity UrineCLEARCLEARSpecific [place] Urine<=1.005 1.005-1.025ApH Urine6.05.0-9.0Protein UrineNEGATIVENEG/TRACE mg/dLGlucose Urine CP817ERNTYIEZ mg/dLABilirubin UrineNEGATIVENEGATIVEKetones UrineNEGATIVENEGATIVE mg/dLBlood UrineNEGATIVENEGATIVENitrite UrineNEGATIVENEGATIVEUrobilinogen Urine 0.20.2-1.0 EU/dLLeukocyte Esterase UrineNEGATIVENEGATIVEUrine Microscopic IndicatedNOPerforming Lab:see noteML - [facility] LBUA Micro, reflex to culture Reviewed date:06/23/2025 10:27:35 PM Interpretation: Performing Lab: Notes/Report: [facility] ,Color UrineLT. YELLOWYELLOWClarity UrineCLEARCLEARSpecific [place] Urine1.010 1.005-1.025pH Urine7.05.0-9.0Protein UrineNEGATIVENEG/TRACE mg/dLGlucose Urine UANEGATIVENEGATIVE mg/dLBilirubin UrineNEGATIVENEGATIVEKetones UrineNEGATIVE NEGATIVE mg/dLBlood UrineNEGATIVENEGATIVENitrite UrineNEGATIVENEGATIVE Urobilinogen Urine0.20.2-1.0 EU/dLLeukocyte Esterase UrineNEGATIVENEGATIVEWBC Urine0-2NONE SEEN #/HPFARBC Urine0-20-2 #/HPFBacteria UrineTRACENONE SEEN #/HPFA Mucus UrineNONE SEENNONE SEENSquamous Epithelial Cell UrineFEWNONE/RARE #/LPFA Crystals Seen?None SeenNone Seen #/HPFCast Seen?NONE SEENNONE SEEN #/LPFUrine Culture IndicatedNOPerforming Lab:see noteML - [facility] LBECG 12 lead Reviewed date:06/23/2025 10:27:35 PM Interpretation: Performing Lab: Notes/Report: Source Facility: [facility]-[address] [place] [address] [place] [address] Electrocardiograph Report Signed Patient: ELLEN RAMIRES MR#: [id number] : 1990 Acct:[id number] Age/Sex: 35 / F ADM Date: 06/20/25 Loc: ER Attending Dr: Ordering Physician: Vince Chadwick Date of Service: 06/20/25 Procedure(s): ECG 12 lead Accession Number(s): [id number] cc: [facility] Test Date: 2025-06-20 Pat Name: ELLEN RAMIRES Department: Room: - Gender: Female Terminal Gauger: : 1990 Requested By: 1031 Order Number: [id number] Reading MD: RANDOLPH MIXON M.D. Measurements Intervals [place]loe Rate: 79 P: 43 DE: 130 QRS: 39 QRSD: 90 T: 8 QT: 398 QTc: 432 Interpretive Statements 1100 Sinus rhythm 4068 Nonspecific Twave abnormality 9130 borderline ECG No previous ECG available for comparison Electronically Signed On 06-21-2025 6:28:32 EDT by RANDOLPH MIXON M.D. Dictated By: RANDOLPH MIXON Signed By: 06/21/25 0629 DD/ 14 TD/TT: Training Engineer:UA Culture/Micro if Indicated Reviewed date:05/30/2025 09:54:53 AM Interpretation: Performing Lab: Notes/Report: [facility] ,Color UrineLT YELLOWYELLOWClarity UrineCLEARCLEARSpecific [place] Urine<=1.005 1.005-1.025ApH Urine7.05.0-9.0Protein UrineNEGATIVENEG/TRACE mg/dLGlucose Urine UANEGATIVENEGATIVE mg/dLBilirubin UrineNEGATIVENEGATIVEKetones UrineNEGATIVE NEGATIVE mg/dLBlood UrineNEGATIVENEGATIVENitrite UrineNEGATIVENEGATIVE Urobilinogen Urine0.20.2-1.0 EU/dLLeukocyte Esterase UrineTRACENEGATIVEAUrine Microscopic IndicatedYESPerforming Lab:see noteML - [facility] LB Urine Microscopic Reviewed date:05/30/2025 09:54:53 AM Interpretation: Performing Lab: Notes/Report: [facility] ,WBC Urine0-2NONE SEEN #/HPFARBC Urine0-20-2 #/HPFBacteria UrineTRACENONE SEEN #/HPFAMucus UrineNONE SEENNONE SEENSquamous Epithelial Cell UrineFEWNONE/RARE #/LPFACrystals Seen?None SeenNone Seen #/HPFCast Seen?NONE SEENNONE SEEN #/LPF Performing Lab:see noteML - [facility] LBComplete Blood Count Auto Diff Reviewed date:07/07/2025 10:36:45 PM Interpretation: Performing Lab: Notes/Report: [facility] ,White Blood Count15.34.0-11.0 10 3/uLHRed Blood Count3.774.20-5.40 10 6/uLL Cuopwxiptt71.712.0-16.0 g/jPKIyhtuuahoo38.136.0-48.0 %LMean Corpuscular Volume 93.181.0-99.0 fLNMean Corpuscular Mftgcntcvq20.026.7-34.0 pgNMean Corpuscular HGB Conc33.329.9-35.2 g/dLNRed Cell Distribution Width13.011.0-15.0 %NPlatelet Ptjqd715090-369 10 3/uLNMean Platelet Yehwpu06.59.5-13.5 fLNNeutrophils Percent Auto78.143.0-75.0 %HLymphocytes Percent Auto12.920.5-60.0 %LMonocytes Percent Auto4.61.7-12.0 %NEosinophils Percent Auto2.90.9-7.0 %NBasophils Percent Auto0.3 0.2-2.0 %NImmature Granulocytes Pct Auto1.20.0-0.5 %HNeutrophils Absolute Auto 12.01.4-6.5 10 3/uLHLymphocytes Absolute Auto2.01.2-3.8 10 3/uLNMonocytes Absolute Auto0.70.3-0.8 10 3/uLNEosinophils Absolute Auto0.40.0-0.7 10 3/uLN Basophils Absolute Auto0.00.0-0.1 10 3/uLNImmature Granulocytes Abs Auto0.18 0.00-0.03 10 3/uLHPerforming Lab:see noteML - [facility] LBGlucose Tolerance 3 Hour Reviewed date:07/07/2025 10:36:45 PM Interpretation: Performing Lab: Notes/Report: [facility] ,Glucose Tolerance 3 Hour GLU FAST 94 (<95) Col: 07/06/25 0809 GLU 1HR 157 (<180) Col: 07/06/25 0917 GLU 2HR 107 (<155) Col: 07/06/25 1012 GLU 3HR 67 (<140) Col: 07/06/25 1120 Performing Lab:see noteML - [facility] LBURINALYSIS - REFLEX CULTURE/SENS Reviewed date:11/13/2024 11:59:49 AM Interpretation: Performing Lab: Notes/Report:PH6.55.0-8.0SP GRAVITY1.0061.005-1.030APPEARANCECLEARCLEARCOLOR YELLOWYELLOWPROTEINNEGATIVENEGATIVEGLUCOSENEGATIVENEGATIVEKETONESNEGATIVE NEGATIVEBILIRUBINNEGATIVENEGATIVEOCCULT BLOODNEGATIVENEGATIVELEUKO ESTERNEGATIVE NEGATIVENITRITENEGATIVENEGATIVEUROBILINOGEN0.2<2 mg/dL UNLESS OTHERWISE INDICATED, ALL TESTING PERFORMED AT: [employer] [address] [place] [address] HEARING IMPAIRED ITINERANT TEACHER: BARBARA DASH M.D. CLIA NUMBER [id number] CAP ACCREDITATION AUID [id number] Urine Dip Reviewed date:11/12/2024 05:53:24 PM Interpretation: Performing Lab: Notes/Report: Bilirubin-Occult Jakkw-Bqiledt-Eriwclh-STP-Trvwdgq-Ze6.0Protein-Specific [place] 1.010ColoryellowAppearanceclearUS OB BPP w non-stress Reviewed date:07/14/2025 11:11:37 PM Interpretation: Performing Lab: Notes/Report: Source Facility: [facility]-[address] [place] [address] [place] [address] Ultrasound Report Signed Patient: ELLEN RAMIRES MR#: [id number] : 1990 Acct:[id number] Age/Sex: 35 / F ADM Date: 07/12/25 Loc: US Attending Dr: Israel Broderick D.O. Ordering Physician: Israel Broderick D.O. Date of Service: 07/12/25 Procedure(s): US OB BPP w non-stress Accession Number(s): [id number] cc: Israel Broderick D.O.; Judy Yepez [place] [address] Patient Name: ELLEN RAMIRES MRN: [id number] date: 1990 Sex: F Assigned Patient Location: Current Patient Location: [facility] Accession/Order Number: [id number] Exam Date: 07/12/2025 09:56 Report Date: 07/12/2025 14:56 At the request of: ISRAEL BRODERICK DO Procedure: US OB BPP w non-stress Biophysical profile. Reason for exam: History of preeclampsia COMPARISON: None TECHNIQUE: Transabdominal imaging of the gravid uterus was obtained. FINDINGS: The commercial estimator reports a BPP of 8 out of 8. CHETAN is normal at 12.8 cm. heart rate 159 bpm. US/US OB BPP w non-stress IMPRESSION: BPP 8 out of 8. Impression dictated by: Mariusz Malloy Jr., D.O. 07/12/2025 2:56 PM Dictation Location: [place] [address] Electronically authenticated by: [id number] Y Date: 07/12/2025 14:56 Dictated By: Mariusz Malloy M.D. Signed By: 07/12/25 1458 DD/ 1456 TD/TT: Training Engineer: OB growth Reviewed date:07/19/2025 09:17:12 PM Interpretation: Performing Lab: Notes/Report: Source Facility: [facility]-[address] [place] [address] [place] [address] Ultrasound Report Signed with Jolanta Patient: ELLEN RAMIRES MR#: [id number] : 1990 Acct:[id number] Age/Sex: 35 / F ADM Date: 07/12/25 Loc: US Attending Dr: Israel Broderick D.O. Ordering Physician: Israel Broderick D.O. Date of Service: 07/12/25 Procedure(s): US OB growth Accession Number(s): [id number] cc: Israel Broderick D.O.; Judy Yepez PARKING ANALYST ADDENDUM The [address] [address] This is an addendum 57th percentile for estimated weight. Impression dictated by: Mariusz Malloy Jr., D.O. 07/17/2025 8:54 AM Dictation Location: [place] [address] Electronically authenticated by: [id number] Y Date: 07/17/2025 08:54 Patient Name: ELLEN RAMIRES MRN: [facility]:[id number] date: 1990 Sex: F Assigned Patient Location: Current Patient Location: Accession/Order Number: [id number] Exam Date: 07/12/2025 09:56 Report Date: 07/17/2025 08:54 At the request of: ISRAEL BRODERICK DO Procedure: US OB growth The [address] [address] Patient Name: ELLEN RAMIRES MRN: [id number]:[id number] date: 1990 Sex: F Assigned Patient Location: Current Patient Location: [facility] Accession/Order Number: [id number] Exam Date: 07/12/2025 09:56 Report Date: 07/12/2025 [...] PM Dictation Location: [facility] Electronically authenticated by: [id number] Y Date: 07/12/2025 14:57 Addendum Dictated By: Mariusz Malloy M.D. Addendum Signed By: 07/17/25 0 857 Addendum Cosigned By: DD/ TD/TT: / [place] [address] Patient Name: ELLEN RAMIRES MRN: [id number]:[id number] date: 1990 Sex: F Assigned Patient Location: Current Patient Location: [facility] Accession/Order Number: [id number] Exam Date: 07/12/2025 09:56 Report Date: 07/12/2025 [...] Jr., D.O. 07/12/2025 2:57 PM Dictation Location: [facility] Electronically authenticated by: [id number] Y Date: 07/12/2025 14:57 Dictated By: Mariusz Malloy M.D. Signed By: 07/12/25 1500 DD/ 1457 TD/TT: Training Engineer:Complete Blood Count Auto Diff Reviewed date:07/04/2025 12:45:54 PM Interpretation: Performing Lab: Notes/Report: [facility] ,White Blood Count17.34.0-11.0 10 3/uLHRed Blood Count3.744.20-5.40 10 6/uLL Cynmlfvjbt78.812.0-16.0 g/sWIEjurhqvokd07.036.0-48.0 %LMean Corpuscular Volume 93.681.0-99.0 fLNMean Corpuscular Xfnroilnkw99.626.7-34.0 pgNMean Corpuscular HGB Conc33.729.9-35.2 g/dLNRed Cell Distribution Width13.111.0-15.0 %NPlatelet Jzhfj067393-564 10 3/uLNMean Platelet Nprbbh03.49.5-13.5 fLNNeutrophils Percent Auto84.243.0-75.0 %HLymphocytes Percent Auto10.020.5-60.0 %LMonocytes Percent Auto3.01.7-12.0 %NEosinophils Percent Auto1.60.9-7.0 %NBasophils Percent Auto0.2 0.2-2.0 %NImmature Granulocytes Pct Auto1.00.0-0.5 %HNeutrophils Absolute Auto 14.61.4-6.5 10 3/uLHLymphocytes Absolute Auto1.71.2-3.8 10 3/uLNMonocytes Absolute Auto0.50.3-0.8 10 3/uLNEosinophils Absolute Auto0.30.0-0.7 10 3/uLN Basophils Absolute Auto0.00.0-0.1 10 3/uLNImmature Granulocytes Abs Auto0.18 0.00-0.03 10 3/uLHPerforming Lab:see noteML - [facility] LBGlucose 1 Hour Reviewed date:07/04/2025 12:45:54 PM Interpretation: Performing Lab: Notes/Report: [facility] ,Glucose 1 Hkpp037<130 mg/dLHPerforming Lab:see noteML - [facility] LBUS OB growth Reviewed date:08/05/2025 07:01:01 AM Interpretation: Performing Lab: Notes/Report: Source Facility: [facility]-[address] [place] [address] [place] [address] Ultrasound Report Signed Patient: ELLEN RAMIRES MR#: [id number] : 1990 Acct:[id number] Age/Sex: 35 / F ADM Date: 08/02/25 Loc: US Attending Dr: Israel Broderick D.O. Ordering Physician: Israel Broderick D.O. Date of Service: 08/02/25 Procedure(s): US OB growth Accession Number(s): [id number] cc: Israel Broderick D.O.; Judy Yepez NP [place] [address] Patient Name: ELLEN RAMIRES MRN: [facility]:[id number] date: 1990 Sex: F Assigned Patient Location: Current Patient Location: Accession/Order Number: [id number] Exam Date: 08/02/2025 10:15 Report Date: 08/02/2025 [...] Gibson M.D. 08/02/2025 4:46 PM Dictation Location: [place] [address] Electronically authenticated by: [id number] Y Date: 08/02/2025 16:46 Dictated By: Raffy Gibson M.D. Signed By: 08/02/251648 DD/ 45 TD/TT: Training Engineer:US OB BPP w non-stress Reviewed date:08/05/2025 07:01:01 AM Interpretation: Performing Lab: Notes/Report: Source Facility: [place] [address] Ultrasound Report Signed Patient: ELLEN RAMIRES MR#: [id number] : 1990 Acct:[id number] Age/Sex: 35 / F ADM Date: 08/02/25 Loc: US Attending Dr: Israel Broderick D.O. Ordering Physician: Israel Broderick D.O. Date of Service: 08/02/25 Procedure(s): US OB BPP w non-stress Accession Number(s): [id number] cc: Israel Broderick D.O.; Judy Yepez [place] [address] Patient Name: ELLEN RAMIRES MRN: [id number] date: 1990 Sex: F Assigned Patient Location: [place] Current Patient Location: Accession/Order Number: [id number] Exam Date: 08/02/2025 10:15 Report Date: 08/02/2025 [...] 2/2 tone: 2/2 Amniotic fluid volume: 2/2 US/ OB BPP w non-stress IMPRESSION: With biophysical profile score: 8/8 Impression dictated by: Raffy Gibson M.D. 08/02/2025 4:49 PM Dictation Location: [place] [id number] Electronically authenticated by: [id number] Y Date: 08/02/2025 16:49 Dictated By: Raffy Gibson M.D. 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 entered dataIn the past year, [...] 2 nights in a row in a residential, longterm, shelter center, orjuvenile correctional facility?Nopatient entered dataAre you [...] rid of a hangover?Nopatient entered dataCAGE- AID Bgdpb2JognvqsijyoxvpAxyajvgpYptwxvmdHmokrh:1-2 cups per daypopTobacco Use: Social InfoQuestionAnswerNotesTobacco Use/SmokingTobacco use:nonsmokerpatient entered dataAdditional DetailsCategorySocial InfoOptionsDetailsMiscellaneous: Occupation:works full-timeCulture/Language BarrierNoEducation LevelGrade 7-12 Barriers to LearningNoneLearning PreferenceDoing or practicingHow often do you need to have someone help you read instructionsNeverSafetyPatient feels safe in relationshipsYesDrugs/Alcohol/Caffeine:Do you drink alcohol?No Problems Problem Type SNOMED Code ICD Code Onset Dates Problem Status W/U Status Risk Notes Problem Exercises teaching, guidance, and counseling (963092407) Exercise counseling (Z71.82) ActiveconfirmedProblemMissed period (15571928)Missed period (N92.6)Active confirmedProblemVitamin D deficiency (64249827)Vitamin D deficiency (E55.9) ActiveconfirmedProblemBurning sensation of vagina (finding) (825390177)Vaginal burning (N94.9)ActiveconfirmedProblemAnxiety depression (043708255)Anxiety with depression (F41.8)ActiveconfirmedProblemDietary management surveillance (114091458)Dietary counseling (Z71.3)ActiveconfirmedProblemFemale infertility (6157180)Female fertility problem (N97.9)Activeconfirmed Vital Signs Heart Rate [...] Encounters Encounter Location Date Provider Diagnosis [address] [id number] 11/06/2024 Sabiha Aviles Depression with anxi ety F41.8 and Hospital discharge follow-up Z09 [address] [id number] 11/12/2024 Sabiha Aviles Dysuria R30.[address] [id number] 12/04/2024 Sabiha Aviles Anxiety with depress ion F41.[address] [id number] 02/05/2025 Sabiha Aviles Encounter for [facility] ss examination Z00.00 ; Screening for cardiovascular condition Z13.6 ; Exercise counseling Z71.82 ; Nutritional counseling Z71.3 ; Screening for thyroid disorder Z13.29 and Vitamin D deficiency E55.9 [address] [place], [place] [id number] 05/21/2025 Judy Marleni Anxiety with depress ion F41.8 ; Left otitis media, unspecified otitis media type H66.92 ; 21 weeks gestation of Z3A.21 ; Severe obesity (BMI >= 40) E66.01 and BMI 40.0-44.9, adult Z68.41 [address] [place], [place] [id number] 04/26/2025 Noelle Garciabeka Anxiety with depress ion F41.8 [address] [place] [id number] 06/17/2025 Merary Espino Assessments Encounter Date Diagnosis [...] Yepez , 08/27/2025 08:15:00 AM, [address] [place], [id number], Insurance Providers Payer Name Payer Address Payer Phone Subscriber Number Group Number Insured Name Patient Relationship to Insured Coverage Start Date Coverage End Date [facility] [address] [place] [phone] [id number] Ellen Ramires Self - patient is the insured 3 Medicaid [facility] [address] [place], [place] [id number], Lauren Self - patient is the [id number] 2022 Medical (General) History Medical History History ICD Code anxiety depressionSurgical History Surgery Date(Month/Year) [place] teeth laparoscopy- endometriosis
--- OUTSIDE RECORDS SUMMARY | 2025-08-20 10:13 | XMS_ITS | Clinical Summary ---
Author Organization [facility] Address [address] [place] [address] Phone Care Team Providers Care Motorized Squad Commanding Officer Name Role Phone June Trinidad LPN Unavailable Unavailable Allergies No known active allergies Medications MedicationSigDispense QuantityRefillsLast FilledStart DateEnd DateStatus metFORMIN (Glucophage) 500 mg tablet 1 tablet (500 mg).05/22/2024ctive Social History Tobacco UseTypesPacks/DayYears UsedDateSmoking Tobacco: NeverSmokeless Tobacco: Never Tobacco Cessation:Counseling Given: No Alcohol UseStandard Drinks/WeekCommentsNever0 (1 standard drink = 0.6 oz pure alcohol)PHQ-2AnswerDate RecordedPatient Health Questionnaire-2 Umxvi835 CommentsUnknownSex and Gender InformationValueDate RecordedSex Assigned at BirthNot on fileLegal JgkRmzcoi37/06/2025 12:03 PM ESTGender IdentityNot on fileSexual OrientationNot on file Last Filed Vital Signs Vital SignReadingTime TakenCommentsBlood Pfhkdoif155/7805 10:52 AM EDT Qorrs537001/03/2025 10:52 AM RVTRdvqizcidqz35.6 ??C (97.8 ??F)01/03/2025 10:52 AM EDTRespiratory Rate--Oxygen Saturation--Inhaled Oxygen Concentration--Xjbmnp554 kg (268 lb 9.6 oz)01/03/2025 10:52 AM BSNLnbrch709.7 cm (5' 8 )01/03/2025 10:52 AM EDTBody Mass Index40.8401/03/2025 10:52 AM EDT Plan of Treatment Health MaintenanceDue DateLast DoneCommentsHIV Cghxyeahe1992Lipid Panel 1992MMR Vaccines (1 of 1 - Standard series)1993Hepatitis C Screening 2010Hepatitis B Vaccines (1 of 3 - 19+ 3-dose series)2011HPV/Cotest 2013DTaP/Tdap/Td Vaccines (1 - Tdap)2014HPV Vaccines (1 - 3-dose standard series)2019COVID-19 Vaccine (1 - season)2025 Influenza Vaccine (#1)2025early Adult Ewqujudg42/22/090043/ Cervical Cancer Vtghvkdwt46/21/2028Pap Smear804/Zoster Vaccines (1 of 2)2042HIB VaccinesAged OutNo [...] Ramires TypeRelation to PatientDate of BirthPhone Billing AddressPersonal/HvkshpGojy1990 [address] [address] Care Teams Team MemberRelationshipSpecialtyStart DateEnd Date June Trinidad LPN Licensed Practical NurseReproductive Endocrinology and Infertility01/01/25
--- OUTSIDE RECORDS SUMMARY | 2025-08-20 10:13 | XMS_ITS | Clinical Summary ---
Author Organization [facility] tem Address [id number] [address] [place] [address] Care Team Providers Care Flattening Machine Operator Name Role Phone Services, [facility] Primary Care Provider Allergies [...] the morning.Active Active Problems ProblemNoted DateDiagnosed DateHeart wrbwcmgxdcas43/23/2024Estimated Date of YkzruqmyZwgkaoddBha59/11/2026ased on last menstrual period of 12/26/2024 Encounters DateTypeDepartmentCare QpevAseqpiilovy29/28/2025Refill Maternal- Medicine at [address] [phone] Sheila Cruz MD Anxiety disorder affecting , xmzpnmmlep03/09/2025 2:00 PM ESTOffice Visit Maternal- Medicine at [address] [phone] Sheila Cruz MD Chronic hypertension affecting (Primary Dx); Anxiety disorder affecting , antepartum; Severe obesity due to excess calories affecting , antepartum ([facility]); Acute palmoplantar pustular psoriasis; Depression affecting ; 30 weeks gestation of vugzkyfry91/09/2025Telephone Maternal- Medicine at [address] [address] Antonina Mcdonough 07/28/20259795Wkvgyh02/28/2025 2:00 PM EDTTelemedicine Maternal- Medicine at [address] [phone] Sheila Cruz MD Chronic hypertension affecting (Primary Dx); 20 weeks gestation of ; Anxiety disorder affecting , antepartum; Acute palmoplantar pustular psoriasis; Severe obesity due to excess calories affecting , antepartum (CMS-HCC) 06/18/2025 7:48 AM EDT - 06/18/2025 11:59 PM EDTHospital Encounter [facility] [address] [place] [phone] Acute palmoplantar pustular psoriasis; Chronic hypertension affecting ; Severe obesity due to excess calories affecting , antepartum (CMS-HCC); Hypertension affecting in second trimester Discharge Disposition: Home06/16/20251624Sjbnbj89/03/2025Orders Only Maternal- Medicine at [address] [place] [phone] Bethany Lundy LPN Acute palmoplantar pustular psoriasis; Chronic hypertension affecting ; Severe obesity due to excess calories affecting , antepartum (CMS-HCC); Hypertension affecting in second mlpculnwu01/03/2025Orders Only Maternal- Medicine at [facility] [address] [place] [address] Bethany Lundy, FIELD SALES TRAINER Acute palmoplantar pustular psoriasis (Primary Dx); Chronic hypertension affecting ; Severe obesity due to excess calories affecting , antepartum ([facility]); Hypertension affecting in second trimesterfrom Last [...] to get more.Never True07/30/2025 Estimated Date of FmlqamzdPvyoavqvXbe01/11/2026ased on last menstrual period of 12/26/2024Sex and Gender InformationValueDate RecordedSex Assigned at BirthNot on fileLegal DrfWwxyyc69/09/2023 2:11 PM ESTGender IdentityNot on fileSexual OrientationNot on file Last Filed Vital Signs Vital SignReadingTime TakenCommentsBlood Aidqghqp868/8707/30/2025 1:48 PM EST Wbvca353007/30/2025 1:48 PM SOPFfaplonkbja01.1 ??C (98.7 ??F)04/29/2025 6:26 PM EDTRespiratory Xhbe533404/29/2025 6:26 PM EDTOxygen Gnfdydusgm79%04/29/2025 6:26 PM EDTInhaled Oxygen Concentration--Vqwhar554.9 kg (290 lb 12.8 oz)07/30/2025 1:48 PM XHOIzzwhb644.7 cm (5' 7.99 )05/17/2025 7:51 AM EDTBody Mass Index44.23 05/17/2025 7:51 AM EDT Plan of Treatment DateTypeDepartmentCare Team (Latest Contact Info)Qmqdtovpaik06/15/2026 2:00 PM ESTTelemedicine Maternal- Medicine at [facility] [address] [place] [phone] Sheila Cruz MD [address] [facility] [address] [place] [address] Health MaintenanceDue DateLast DoneCommentsDepression Fdcwhtjkp59/29/2004Adult BMI Follow Up Plan2010DTaP,Tdap and Td Vaccines (1 - Tdap)2011 Influenza Pclzfpq7304/22/2025RSV ( or age 60+ yrs) (1 - Risk 1- dose series)08/07/2025dult BMI Zmuuttjcg56Tobacco Screening Pap Smear, 11/23/2022, 11/23/2022, Additional history exists Medical Devices Not on file Procedures Procedure NamePriorityDate/TimeAssociated DiagnosisCommentsUS MFM OB FOLLOW-UP, 1 UUEGJVowjctk88/28/2025 9:09 AM EDT 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 Severe obesity due to excess calories affecting , antepartum ([facility]) Hypertension affecting in second trimester PAP XRUPVUajwviw45/04/2023 5:20 AM EDT Encounter for screening for malignant neoplasm of cervix Encounter for screening for human papillomavirus (HPV) from Last 3 Months or Most Recently Relevant to Health Maintenance Results * US [facility] OB FOLLOW-UP, 1 FETUS (06/18/2025 9:09 AM EDT)Anatomical Region LateralityModalityOB-GYNUltrasoundSpecimen (Source)Anatomical Location / LateralityCollection Method / VolumeCollection TimeReceived Time06/18/2025 8:05 AM EDT Narrative 06/18/2025 9:41 AM EDT NAME: ??PAULA HUGHES : 1990 SEX: F Accession Number: [id number] ORDERING PHYSICIAN: SHEILA CRUZ REFERRING PHYSICIAN: ISRAEL LUNA Coding Procedures ? 48324: Ultrasound, uterus, real time with image documentation, follow up,transabdominal ? approach per fetus Indication Screening for follow-up survey, Anxiety , Depression, Obesity in , History of gestationalhypertension, Obesity in , Chronic hypertension affecting . History OB History ? 2. Para 1 ? [id number] Maternal Assessment Physical Exam ??Height 173 cm, [...] (oz) ? 15 oz EFW by: ?Hadlock (EHF-HJ-OQ-FL) Extended Tibia ??37.8 mm 24w 2d 27% [facility] ? 4.7 mm CM ? 4.4 mm [...] Thorax RVOT view. LVOT view. 3-vessel view. 6-afodqo-belxyfh view. ? Right lung. Left lung. Abdomen [...] HUGHES : 1990 SEX: F Accession Number: [id number] ORDERING PHYSICIAN: SHEILA CRUZ REFERRING PHYSICIAN: ISRAEL LUNA Coding Procedures 96646: Ultrasound, uterus, real time with image documentation, follow up, transabdominal approach per fetus Indication Screening for follow-up survey, Anxiety , Depression, Obesity in , History of gestational hypertension, Obesity in , Chronic hypertension affecting . History OB History 2. Para 1 [id number] Maternal Assessment Physical Exam Height 173 cm, [...] EFW (oz) 15 oz EFW by: Hadlock (FXY-BZ-AU-FL) Extended Tibia 37.8 mm 24w 2d 27% [facility] 4.7 mm CM 4.4 mm 8% Nicolaides [...] Thorax RVOT view. LVOT view. 3-vessel view. 6-estcsd-uftpbnwvnjj. Right lung. Left lung. Abdomen Abdom. wall. [...] with thepatient as necessary. Authorizing ProviderResult TypeResult StatusIra Wyncote [facility] ORDERABLES Final Result * Pap Smear (11/23/2022 5:20 AM EDT)Specimen (Source)Anatomical Location / LateralityCollection Method / VolumeCollection TimeReceived Time11/23/2022 5:20 AM EDT11/23/2022 5:29 AM EDT Narrative COPATH - 11/24/2022 1:05 PM EDT [facility] ? [address] [place] [address] ? [place] [address] ? Gynecologic Cytology Consultation ? Patient Name:ELLEN RAMIRES:1990 (Age: 32)Gender:FTaken:11/23/2022Reported:11/24/2022hysician(s):Bethany Raymundo CNP ([phone])Copy To: Rec. #:[id number]: #[id number] Final Cytologic Interpretation ThinPrep Pap Test (Cervical): Satisfactory for evaluation. A transformation zone component is present. NEGATIVE FOR INTRAEPITHELIAL LESION OR MALIGNANCY. ?? jja/11/24/2022 Interpretation performed at [facility], [address] [place] [address], License number: [id number]. Electronically Signed Out By ?J.J. Ezra, CT(ASCP) Date of Last Menstrual Period: ? (None Given) Other Clinical Conditions: Z12.4 Screening for malignant neoplasm of cervix Z11.51 Screening for HPV Source of Specimen ??ThinPrep Pap Test (Cervical) ? Thin Prep Pap ([employer]) Fee Code(s): ?? G0145 Authorizing ProviderResult TypeResult StatusBethany Raymundo MAJOR ASSEMBLER-MANAGER [facility] PATHOLOGY/CYTOLOGY ORDERABLESFinal ResultPerforming OrganizationAddress City/State/ZIP CodePhone Number COPATH from Last 3 Months or Most Recently Relevant to Health Maintenance Insurance * Guarantor: Ellen Ramires TypeRelation to PatientDate of BirthPhone Billing AddressPersonal/LxlxurNtxn1990 [address] [address] Care Teams Team MemberRelationshipSpecialtyStart DateEnd Date [facility], [facility] [address] [place], [place] PCP - GeneralFamily Medicine11/03/24
--- OUTSIDE RECORDS SUMMARY | 2025-08-20 10:13 | XMS_ITS | Encounter Summary ---
Author Organization [facility] Address [address] [place] [address] Care Team Providers Care Instructor Adjunct Surgical Technician Name Role Phone Judy Caal Unavailable Unavailable Encounter Details DateTypeDepartmentCare Team (Latest Contact Info)Yddpuqbkqpx30/19/2025linisync Result Encounter [facility] Department Unsolicited Israel Broderick DO [address] [place], [place] [phone] Social History Tobacco UseTypesPacks/DayYears UsedDateSmoking Tobacco: NeverSmokeless Tobacco: NeverAlcohol UseStandard Drinks/WeekCommentsNever0 (1 standard drink = 0.6 oz pure alcohol)PHQ-2AnswerDate RecordedPatient Health Questionnaire-2 Score0 07/30/2025Estimated Date of ZijemfzsVikmrzpgHcm41/11/2026Based on last menstrual period of 12/26/2024Sex and Gender InformationValueDate RecordedSex Assigned at BirthNot on fileLegal QzwIiwagm00/06/2024 9:48 AM EDTGender Identity Not on fileSexual OrientationNot on filedocumented as of this encounter Plan of Treatment DateTypeDepartmentCare Team (Latest Contact Info)Ityxtjrytul46/30/2025 1:20 PM ESTRoutine [facility] [place] [facility] [address] [place] [address] Bethany Simon PA [address] [place], [place] [phone] 12/16/2025 3:00 PM EDTOffice Visit [facility] [place] [facility] [address] [place] [phone] Israel Broderick, DO [address] [place] [address] documented as of this encounter Procedures Procedure NamePriorityDate/TimeAssociated DiagnosisCommentsUS OB BPP W NON-YSCOUO3808/09/2025 10:47 AM EST documented in this encounter Results * US OB BPP W NON-STRESS (08/09/2025 10:47 AM EST)Anatomical Region LateralityModalityOtherSpecimen (Source)Anatomical Location / Laterality Collection Method / VolumeCollection TimeReceived Time08/09/2025 10:47 AM EST Narrative 08/09/2025 10:50 AM EST [facility] ?[address] ? [place] [address] ? Ultrasound Report ? Signed ? Patient: ELLEN RAMIRES ?MR#: [id number] ?? : 1990 ?Acct:[id number] ?? Age/Sex: 35 / F ?ADM Date: 08/09/25 ?? Loc: [facility] ??250-1 ? Attending Dr: Israel Broderick D.O. ? Ordering Physician: Israel Broderick D.O. ?? Date of Service: 08/09/25 ?? Procedure(s): US OB BPP w non-stress ?? Accession Number(s): [id number] ? cc: Israel Broderick D.O.; Judy Yepez MANAGER DRUG ? [facility] ? [address] ? [place] [address] ? Patient Name: ?? ELLEN RAMIRES ? MRN: [id number] ? date: 1990 ?Sex: F ?? Assigned Patient Location: [facility] ?? Current Patient Location: [facility] ?? Accession/Order Number: [id number] ?? Exam Date: 08/09/2025 ??10:20 ?Report Date: [...] Dictation Location: RADIO-PC-30 ? Electronically authenticated by: [id number] ??Y ?? Date: 08/09/2025 ??10:47 ? Dictated By: ?Kita Florentino M.D. ? Signed By: ?12/19/25 1050 ? DD/ 1047 ? TD/TT: ? Leguillon Debeader: Procedure Note Radiology, Radiologist, MD - 08/09/2025 [place] [address] Ultrasound Report Signed Patient: ELLEN RAMIRES JMR#: [id number] : 1990Acct:[id number] Age/Sex: 35 / FADM Date: 08/09/25 Loc: [facility] 250-[address]: Israel Broderick D.O. Ordering Physician: Israel Broderick D.O. Date of Service: 08/09/25 Procedure(s): US OB BPP w non-stress Accession Number(s): [id number] cc: Israel Broderick D.O.; Judy Yepez NP The [address] [address] Patient Name: ELLEN RAMIRES MRN: [id number] date: 1990 Sex: F Assigned Patient Location: [facility] Current Patient Location: [facility] Accession/Order Number: [id number] Exam Date: 08/09/2025 10:20 Report Date: 08/09/2025 [...] 08/09/2025 10:47 AM Dictation Location: [place] [address] Electronically authenticated by: [id number] Y Date: 0:47 Dictated By: Kita Florentino M.D. Signed By:08/09/25 1050 DD/ 1047 TD/TT: Leguillon Debeader: Authorizing ProviderResult TypeResult StatusCorey Davie DOCLINISYNC IMAGINGFinal Result documented in this encounter Visit Diagnoses Not on filedocumented in this encounter Care Teams Team MemberRelationshipSpecialtyStart DateEnd Date Judy Caal PCP - [facility]02/20/24documented as of this encounter
--- OUTSIDE RECORDS SUMMARY | 2025-08-20 10:18 | XMS_ITS | CCD ---
Author Organization [facility] Care Team Providers Care Supervisor Aircraft Cleaning Name Role Phone Pinky Singh Unavailable Judy Caal Unavailable Unavailable Unavailable Primary Care Provider Unavailabl e Services, [facility] Primary Care Provider Caesar Broderick DO Attending Provider Caesar Broderick Attending Unavailable Davie, Caesar Admitting Unavailable White [employer]CT SALES REPRESENTATIVE, June A Unavailable Unavailable ROBBIE LOPEZ Attending Unavailable Services, [facility] Primary Care Provider SERVICES, Critical access hospital Care Unava ilable MILLIE VILLAGRAN Attending Unavailable SERVICES, [facility] Care Unava ilable FRANCIE ABRAMS Attending Unavailable DAVIE, CAESAR R Referring Unavailable SERVICES, [facility] Care Unava ilable DAVIE, CAESAR R Referring Unavailable SERVICES, [facility] Care Unava ilable YORDY CRUZ Attending Unavailable DAVIE, CAESAR R Referring Unavailable SERVICES, [facility] Care Unava ilable DAVIE, CAESAR R Referring Unavailable SERVICES, [facility] Care Unava ilable YORDY CRUZ Attending Unavailable DAVIE, CAESAR R Referring Unavailable SERVICES, Critical access hospital Care Unava ilable Services, [facility] Primary Care Provider DEWEY BRODERICKY Attending Unavailable DAVIE, CAESRA Attending Unavailable DAVIE, CAESAR Attending Unavailable DAVIE, CAESAR Attending Unavailable DAVIE, CAESAR Attending Unavailable DAVIE, CAESAR Attending Unavailable DAVIE, CAESAR Attending Unavailable UYEN, RODY Attending Unavailable UYEN, RODY Attending Unavailable UYEN, RODY Attending Unavailable DAVIE, CAESAR Attending Unavailable Medications Current Medications MedicationDrug Class(es)DatesSig (Normalized)Sig (Original)amoxicillin 875 mg / clavulanate 125 mg oral tablet (2 sources)Penicillin-class AntibacterialStart: 35-97-9338ljwm 1 tablet by mouth twice dailyAmoxicillin-Pot Clavulanate 875-125 mg tablet Active 1 TAB PO Twice daily November 24, 2023 12:00amaspirin 81 mg delayed release oral tablet (4 sources)Platelet Aggregation Inhibitor, Nonsteroidal Anti-inflammatory Drug take 1 tablet by mouth in the morningaspirin 81 mg Take 1 tablet (81 mg total) by mouth in the morning. Activecholecalciferol 0.01 mg oral tablet (20 sources)Vitamin DStart: 21-24-7061gtfmskihbgpuayn 10 mcg (400 unit) tablet 2 tablets (800 Units total) in the morning. 01/26/2024 ActiveStart: 01-26-2024 End: 61-65-4085Nechyxrahmcopgd 10 MCG (400 UNIT) chewable tablet 1 (one) time each day at the same time Discontinued (Therapy completed) End: 98-34-8568dffg 2 tablets by mouth once dailyD-400 10 MCG (400 UNIT) tablet TAKE 2 TABLETS BY MOUTH ONCE DAILY FOR 30 DAYS 03/28/2025 Discontinuedclobetasol propionate 0.0005 mg/mg topical ointment (3 sources)CorticosteroidStart: 05-17-2025 End: 15-44-5757hofugctvzA (TEMOVATE) 0.05 % ointment Indications: Acute palmoplantar pustular psoriasis , Chronic hypertension affecting , 20 weeks gestation of Apply a thin layer to the affected areas twice daily. 30 g 05/17/2025 05/31/2025 ActiveclomiPHENE citrate 50 mg oral tablet (3 sources)Estrogen Agonist/AntagonistStart: 11-12-2024 End: 15-19-4063xxbe 2 tablets by mouth once dailyclomiPHENE (Clomid) 50 MG tablet Indications: Encounter for fertility planning , PCOS (polycystic ovarian syndrome) , Fallopian tube disorder Take 2 tablets (100 mg) by mouth Daily for 5 days 10 tablet 11/12/2024 11/17/2024 Activefluticasone propionate 0.05 mg/actuat metered dose nasal spray (4 sources)CorticosteroidStart: 11-24-2023 End: 57-61-6246imuxtsjlonf (Flonase) 50 MCG/ACT nasal spray Daily 11/24/2023 04/10/2024 Discontinued (Other)Start: 09-89-1094hnxt 1 spray(s) nasal route once dailyFluticasone Propionate 50 mcg/actuation spray,suspension Active 2 SPRAY INTRANASAL Daily November 24, 2023 12:00am administer into each nostril labetalol hydrochloride 100 mg oral tablet (14 sources)beta-Adrenergic BlockerStart: 06-24-2025 End: 73-81-6028hmtw 1 tablet by mouth once dailylabetalol (Normodyne) 100 MG tablet Indications: Hypertension Take 1 tablet (100 mg) by mouth Daily30 tablet 3 06/24/2025 07/24/2025 ActiveStart: 05-16-2025 End: 31-69-9967rvvy 1 tablet by mouth once at bedtimelabetalol (Normodyne) 200 MG tablet Indications: Second trimester (HHS-HCC) , Gestational hypertension, antepartum (HHS-HCC) TAKE 1 TABLET (200 MG) BY MOUTH IN THE MORNING AND AT BEDTIME 60tablet 2 05/16/2025 05/23/2025 Discontinued (Ineffective)Start: 04-11-2025 End: 97-85-0829lold 1 tablet by mouth once in the morninglabetalol (Normodyne) 200 MG tablet Indications: Second trimester (HHS-HCC) , Gestational hypertension, antepartum (HHS-HCC) Take 1 tablet (200 mg) by mouth in the morning and 1 tablet (200mg) before bedtime. 60 tablet 04/11/2025 05/11/2025 Active End: 73-88-7258ewaf 1 tablet by mouth in the morning, then take 1 tablet by mouth at bedtimelabetaloL (NORMODYNE) 200 mg tablet Take 1 tablet (200 mg total) by mouth in the morning and 1 tablet (200 mg total) before bedtime. 05/17/2025 Discontinuedmagnesium oxide 400 mg oral tablet (15 sources)Start: 03-28-2025 End: 97-90-9786uwgm 1 tablet by mouth once dailymagnesium oxide (Mag-Ox) 400 MG tablet Indications: Second trimester (HHS-HCC) , Acute nonintractable headache, unspecified headache type Take 1 tablet (400 mg) by mouth Daily 30 tablet 6 03/28/2025 04/27/2025 ActivemetFORMIN hydrochloride 500 mg oral tablet (20 sources)BiguanideStart: 34-99-2143ekbLOQDGH (Glucophage) 500 mg tablet 1 tablet (500 mg). 05/22/2024 ActiveStart: 04-10-2024 End: 37-77-1342cccj 1 tablet by mouth every twenty-four hours at mealtime metFORMIN XR (Glucophage-XR) 500 MG 24 hr tablet Indications: PCOS (polycystic ovarian syndrome) , Abnormal uterine bleeding (AUB) Take 1 tablet (500 mg) by mouth in the evening. Take with meals Do not crush, chew, or split. 30 tablet 11 04/10/2024 03/01/2025 Discontinued (Therapy completed) End: 49-12-3613lidl 1 tablet by mouth once daily at breakfastmetFORMIN XR (GLUCOPHAGE XR) 500 mg 24 hr tablet Take 1 tablet (500 mg total) by mouth daily with breakfast. 05/17/2025 DiscontinuedNIFEdipine 30 mg osmotic 24 hr extended release oral tablet (20 sources)Dihydropyridine Calcium Channel BlockerStart: 75-94-2813hksn 2 tablets by mouth every twenty-four hours at bedtimeNIFEdipine XL (PROCARDIA XL) 30 mg 24 hr tablet Indications: Chronic hypertension affecting , 20 weeks gestation of Take 2 tablets (60 mg total) by mouth in the morning and at bedtime. 60 tablet 2 06/18/2025 ActiveStart: 05-30-2025 End: 77-37-8648zawh 1 tablet by mouth once daily in the morningNIFEdipine XL (Procardia XL) 60 MG 24 hr tablet Indications: Chronic hypertension affecting ([facility]) Take 1 tablet (60 mg) by mouth Daily Take 1 tablet in the am. Do not crush, chew, or split. 30 tablet 3 05/30/2025 05/30/2026 ActiveStart: 50-61-8729fkcl 1 tablet by mouth once dailyProcardia XL 30 MG 24 hr tablet Take 30 mg by mouth Daily 05/17/2025 ActiveStart: 05-17-2025 End: 46-68-0381gweo 1 tablet by mouth every twenty-four hours at bedtime NIFEdipine XL (PROCARDIA XL) 30 mg 24 hr tablet Indications: Chronic hypertension affecting , 20 weeks gestation of Take 1 tablet (30 mg total) by mouth in the morning and at bedtime. 60 tablet 2 05/17/2025 06/18/2025 DiscontinuedpredniSONE 20 mg oral tablet (2 sources)Start: 33-18-8801kclo 1 tablet by mouth twice dailyPrednisone 20 mg tablet Active 20 MG PO Twice daily 10 November 24, 2023 12:00amprenatal 115/iron/folic acid ( 19 ORAL) (4 sources)take 1 tablet by mouth in the morningprenatal 115/iron/folic acid ( 19 ORAL) Take 1 tablet by mouth in the morning. Activesertraline 25 mg oral tablet (20 sources)Serotonin Reuptake InhibitorStart: 64-94-7522cflu 1 tablet by mouth in the morningsertraline (ZOLOFT) 25 mg tablet Indications: Anxiety disorder affecting , antepartum Take1 tablet (25 mg total) by mouth in the morning. 30 tablet 1 06/18/2025 ActiveStart: 02-98-2967qkbg 1 tablet by mouth in the morningsertraline (ZOLOFT) 50 mg tablet Indications: Anxiety disorder affecting , antepartum Take1 tablet (50 mg total) by mouth in the morning. 30 tablet 1 06/18/2025 ActiveStart: 11-06-2024 End: 84-80-0821srtq 2 tablets by mouth once dailysertraline (Zoloft) 25 MG tablet Take 50 mg by mouth 1 (one) time each day at the same time 11/06/2024 ActiveStart: 11-06-2024 End: 45-62-5637qlus 3 tablets by mouth at bedtimesertraline (ZOLOFT) 25 mg tablet Take 3 tablets (75 mg total) by mouth before bedtime. 11/06/2024 DiscontinuedStart: 11-06-2024 End: 20-02-2604pxlnglselv (Zoloft) 25 MG tablet 1 (one) time each day at the same time 11/06/2024 ActiveStart: 08-04-2023 End: 46-80-6938hjpj 1 tablet by mouth once dailysertraline (Zoloft) 50 MG tablet Take 50 mg by mouth Daily 08/04/2023 04/10/2024 Discontinued (Other)sertraline (ZOLOFT) 25 mg tablet Take by mouth daily. Active Completed/Discontinued Medications MedicationDrug Class(es)DatesSig (Normalized)Sig (Original)omeprazole 20 mg delayed release oral capsule (20 sources)Proton Pump InhibitorStart: 01-24-2024 End: 31-59-7970eacb 1 capsule by mouth in the morningomeprazole (PriLOSEC) [address] capsule Take 20 mg by mouth in the morning. 01/24/2024 03/28/2025 Dis continued Problems Active Problems Problem ClassificationProblemDateDocumented DateEpisodic/ChronicAbdominal pain (3 sources)Pain in female pelvis; Translations: [Pelvic and perineal pain] 86-35-9884QldircylGjzlbkh disorders (1 source)Anxiety disorder, unspecified; Translations: [Anxiety disorder, unspecified]Onset: 98-52-0053BanehmdWhgtprynziojg and procreative management (10 sources)Patient encounter status; Translations: [Encounter for other procreative management]71-64-9173VdumhixkYtrqyorc; including migraine (4 sources)Acute headache; Translations: [Acute nonintractable headache, unspecified headache type]22-26-8369VmxschruNrfuyoykjbgz complicating ; childbirth and the puerperium (18 sources)Hypertension complicating ; Translations: [Unspecified maternal hypertension, second trimester]Onset: hronic Hypertension complicating ; childbirth and the puerperium (20 sources)Hypertension AND/OR vomiting complicating childbirth AND/OR puerperium; Translations: [Gestational [-induced] hypertension without significant proteinuria, unspecified trimester]Onset: 04-25-2025 21-39-2693VnzxzpmrQeugemxgjoxqa and screening for infectious disease (6 sources)Contact with and (suspected) exposure to other viral communicable diseases; Translations: [Contact with or exposure to other viral diseases] EpisodicMenstrual disorders (2 sources)Amenorrhea; Translations: [Amenorrhea, unspecified]29-84-0341Jabmipj Nutritional deficiencies (20 sources)Vitamin D deficiency; Translations: [Vitamin D deficiency, unspecified]Onset: 272143-32-2535QszmyroBufe wounds of extremities (2 sources)Laceration without foreign body of right thumb without damage to nail, initial encounter; Translations: [Laceration of finger]Onset: 04-29-2025 EpisodicOther aftercare (2 sources)Postoperative visit; Translations: [Encounter for other specified surgical aftercare]88-62-4251MwnrjodjZdqtj and unspecified benign neoplasm (1 source)Pigmented skin lesion ; Translations: [Melanocytic nevi, unspecified] 99-23-1888PnrhrhiwBdomj circulatory disease (1 source)H/O: hypertension; Translations: [Personal history of other diseases of the circulatory system]08-97-7889VxjukgptLbwgy complications of (5 sources)Maternal obesity complicating , childbirth and the puerperium, antepartum; Translations: [Obesity complicating , unspecified trimester]54-07-1934TbnjbrfZdmir complications of (2 sources)Obesity complicating , unspecified trimester; Translations: [Obesity complicating , unspecified trimester]Onset: 62-81-9969Ljwjwcp Other complications of (17 sources)History of pre-eclampsia; Translations: [Supervision of with other poor reproductive or obstetric history, unspecified trimester]Onset: 988726-37-6070EdknxjmpYqjdd complications of (2 sources)Other mental disorders complicating , unspecified trimester; Translations: [Mental disorders of mother, antepartum condition or complication] Onset: 263079-99-5398RymepbjxAglxz endocrine disorders (20 sources)Polycystic ovary syndrome; Translations: [Polycystic ovarian syndrome]Onset: 398912-03-2135MrpylpxWsbbl female genital disorders (4 sources)Abnormal uterine bleeding; Translations: [Abnormal uterine and vaginal bleeding, unspecified]23-01-3706PignnmqXjllv female genital disorders (2 sources)Abnormal uterine and vaginal bleeding, unspecified; Translations: [Abnormal uterine and vaginal bleeding, unspecified]Onset: 90-93-6286Tlvzhap Other inflammatory condition of skin (5 sources)Pustular psoriasis of palms and soles; 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]79-43-1640AypahhnAmmud inflammatory condition of skin (2 sources)Pustulosis palmaris et plantaris; 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]Onset: 54-19-7415ObvivpwOwqez nutritional; endocrine; and metabolic disorders (2 sources)Morbid (severe) obesity due to excess calories; Translations: [Morbid (severe) obesity due to excess calories]Onset: 93-27-3516BjukwbtAceve and delivery including normal (16 sources); Translations: [Encounter for supervision of normal , unspecified, unspecified trimester]77-12-3249SfzgkoypCpfka screening for suspected conditions (not mental disorders or infectious disease) (2 sources)Alpha-fetoprotein blood test status; Translations: [Encounter for screening for raised alphafetoprotein level]85-30-1040SdfaewdvJjgsg upper respiratory infections (1 source)Chronic sinusitis, unspecified; Translations: [Unspecified sinusitis (chronic)]86-56-8311MgntsegEezub upper respiratory infections (3 sources)Sore throat symptom; Translations: [Acute pharyngitis, unspecified] 31-29-7117EyshfuyuGhdlynad codes; unclassified (2 sources)History of laparoscopy; Translations: [Other specified postprocedural states]45-41-7939ZbuaasvpFvlnswgw codes; unclassified (1 source)Gestation period, 9 weeks; Translations: [9 weeks gestation of ]94-30-2536XykyeskmBjekonnv codes; unclassified (2 sources)Gestation period, 13 weeks; Translations: [13 weeks gestation of ]71-09-9762UrmtzkpvScwrgaer codes; unclassified (2 sources)Gestation period, 15 weeks; Translations: [15 weeks gestation of ]48-47-7999BkddegscNzvhsych codes; unclassified (2 sources)Gestation period, 17 weeks; Translations: [17 weeks gestation of ]72-34-0587XwdgyatpJrrbaxda codes; unclassified (2 sources)Gestation period, 20 weeks; Translations: [20 weeks gestation of ]05-42-4955KhiufctsXwhvsfhz codes; unclassified (2 sources)Gestation period, 22 weeks; Translations: [22 weeks gestation of ]03-75-1056GhdjffiiXazlylto codes; unclassified (2 sources)Gestation period, 21 weeks; Translations: [21 weeks gestation of ]95-61-6691WiaccsenJyzlevoe codes; unclassified (2 sources)Gestation period, 23 weeks; Translations: [23 weeks gestation of ]30-23-5387GthwxrwgGqbdgbar codes; unclassified (1 source)20 weeks gestation of ; Translations: [20 weeks gestation of ]Onset: 83-00-4628TksikykgBlcloism codes; unclassified (2 sources)Gestation period, 25 weeks; Translations: [25 weeks gestation of ]60-69-0891BaispaftJxgxcunmpksb (1 source)gHTNOnset: 05-17-2025 Past or Other Problems Problem ClassificationProblemDateDocumented DateEpisodic/ChronicCardiac dysrhythmias (8 sources)Palpitations; Translations: [Palpitations]Onset: 406746-40-4504 EpisodicNonspecific chest pain (3 sources)Chest pain, unspecified; Translations: [Chest pain]Onset: 11-03-2024 EpisodicOther female genital disorders (20 sources)Fallopian tube disorder; Translations: [Noninflammatory disorder of ovary, fallopian tube and broadligament, unspecified]Onset: 796974-47-4131 EpisodicUnclassified (2 sources)Patient encounter ywysgd02-07-7604Wzelqicazukr (1 source)Onset: 171004-18-2720Zqtpkvaeheop (1 source)Anxiety disorder affecting , dahziciizx88-79-9210Haahqit tract infections (3 sources)Acute cystitis; Translations: [Acute cystitis without hematuria] Onset: 364144-79-1457MrjzpjcaSvvhx infection (1 source)COVID-19 Results Test NameValueInterpretationReference RangeFacilityUrinalysis macro (dipstick) panel (U)on 61-27-6880Zzihacxxw, UANegativeNegative - 4(70) +++ mg/dLNOMS HealthcareBlood, UANegativeNegative [...] mg/dLNOMS HealthcareNOMS HealthcareUrinalysis macro (dipstick) panel (U)on 57-37-5969Bmzqanpvx, UA NegativeNegative - 4(70) +++ mg/dLNOMS HealthcareBlood, [...] mg/dLNOMS HealthcareNOMS HealthcareUrinalysis macro (dipstick) panel (U)on 45-95-2561Lseeducoi, UANegativeNegative - 4(70) +++ mg/dL NOMS HealthcareBlood, UANegativeNegative - 50 Surjit/mcLNOMS HealthcareClarity, UA ClearNOMS HealthcareColor, UAYellowNOMS HealthcareGlucose, UANegativeNegative - 1999(110) ++++ mg/dLNOMS HealthcareInterpretation and review of laboratory resultsNormalNOMS HealthcareKetones, UANegativeNegative - 160(16) ++++ mg/dLNOVA HealthcareLeukocytes, UANegativeNegative - 500+++ Kaleigh/mcLNOMS HealthcareNitrite, UANegativeNegative - PositiveNOMS HealthcarepH, UA65 - 9NOMS HealthcareProtein, UANegativeNegative - 2000(20) ++++ mg/dLNOMS HealthcareSpec Grav, UA1.0251 - 1.03NOMS HealthcareUrobilinogen, UA0.20.2 - 12 mg/dLNOMS HealthcareNOMS HealthcareAFP, SERUM, OPEN SPINA BIFIDAon 57-14-1261RHH MOM0.85.[facility] AFP VALUE38.2 ng/mL.[facility] HospitalCOMMENT:Comment.[facility] HospitalComment on above:Gema Ortez, Ph.D., [facility] Director References: Available Upon Request. Multiples Of Median Cutoffs For AFP Elevations Kumar 2.5 Black 2.8 IDD 2.0 Twins 4.5 Abbreviation Definitions IDD - Insulin Dep Diabetes OSBR - Open Spina Bifida Risk For further inquiries contact [facility] at [phone]. This test was developed and its performance characteristics determined by [facility]. It has not been cleared or approved by the Food and Drug Administration. Performed at: [facility] [address] [place], [place] [id number] Driver/Refuse Collector: Jesus Saleh [facility], Phone: [phone] GEST. AGE ON COLLECTION DATE21.1. weeksNOVA HealthcareGESTAT. AGE BASED ONLMP. [facility] HospitalComment on above:Recalculations are not recommended when gestational dating by LMP and ultrasound are within 10 days. INSULIN DEP DIABETESNo.[facility] HealthcareINTERPRETATIONComment.[facility] Comment on above:Interpretation: Screen Negative This [...] Customer Services to discuss available options. The [employer] recommends amniocentesis be offered to women age 35 and older. MATERNAL AGE AT EDD33.5. yrNOVA HealthcareMULTIPLE GESTATIONNo.[facility] Healthcare OSBR RISK 1 [id number].NOMS HealthcareRACECaucasian.[facility] HealthcareRESULTSReport. [facility] HealthcareTEST RESULTS:Negative.[facility] FejvuucnxfOQNGZN833. lbsNOMS HealthcareN N LMP [id number] 2 9 N 1 [address] White/ CLINISYNCNOVA HealthcareUnlisted Lab Teston 83-66-6666Oeulo Free Cell Dnalow riskProMercy Hospital SystemProGalion Community HospitalB-TYPE NATRIURETIC PEPTIDEon 43-30-2709Mjpelusqhoi peptide B (Bld) [Mass/Vol]46 pg/mLNormal<=100ProOhiohealth Marion General HospitalComment on above:Performed By: #### BNP #### [facility] (TT) [address] [place] [address] VIRUrinalysis macro (dipstick) panel (U)on 65-98-8480Cijlyxqoi, UANegativeNegative - 4(70) +++ mg/dLNOVA HealthcareBlood, UANegativeNegative - 50 Surjit/mcLNOVA HealthcareClarity, UAClearNOVA HealthcareColor, UAYellowNOVA HealthcareGlucose, UANegativeNegative - 2000(110) ++++ mg/dLSaint [facility] Hospital Interpretation and review of laboratory resultsNormalNOVA HealthcareKetones, UA NegativeNegative - 160(16) ++++ mg/dLSTEWARD [facility]ALTH [facility]ARE SYSTEM HealthcareLeukocytes, UANegative Negative - 500+++ [place]aleigh/mcLNOVA HealthcareNitrite, UANegativeNegative - Positive [facility] HealthcarepH, UA65 - 9NOVA HealthcareProtein, UANegativeNegative - 2000(20) ++++ mg/dLNOVA HealthcareSpec Grav, UA1.0151 - 1.03NOVA HealthcareUrobilinogen, UA1.00.2 - 12 mg/dLNOColumbia Regional Hospital HealthcareTBH TOTAL PROTEIN 24 HOUR URINEon 33-98-2915IFWHG PROTEIN URINE RANDOM<6.0NINF - 11.9 mg/dLSaint [facility] Hospital TOTAL VOLUME 24 HOUR WZVAG5203kR/24hrNOVA HealthcareCLINISYNCNOMS HealthcareALL CBC WITH AUTO DIFFon 74-33-6730XBHXOOSWA ABSOLUTE FPGZ4PKIW Healthcare Basophils/100 WBC (Bld)0.2 %0.2 - 2.0 %NOMSt. Louis Children'S HospitalEosinophils/100 WBC (Bld) 2.9 %0.9 - 7.0 %[facility] HospitalErythrocyte distribution width (RBC) [Ratio]12.3 %11.0 - 15.0 %[facility] HospitalIMMATURE GRANULOCYTES ABS AUTO0.09HighNOSouthPointe HospitalImmature granulocytes/100 WBC (Bld)0.7 %High0.0 - 0.5 %[facility] Interpretation and review of laboratory resultsAbnormalSaint [facility] Hospital LYMPHOCYTES ABSOLUTE JZEX5OFLYSouthPointe HospitalLymphocytes/100 WBC (Bld)15.4 %Low20.5 - 60.0 %[facility] CenterH (RBC) [Entitic mass]31.3 pg26.7 - 34.0 pgSSM Saint Mary's Health CenterHC (RBC) [Mass/Vol]33.6 g/dL29.9 - 35.2 g/dLSSM Saint Mary's Health CenterV (RBC) [Entitic vol]93.2 fL81.0 - 99.0 fLSaint Louis University HospitalMONOCYTES ABSOLUTE AUTO0.5NOSouthPointe HospitalMonocytes/100 WBC (Bld)4.1 %1.7 - 12.0 %[facility] HospitalNEUTROPHILS ABSOLUTE AUTO9.9HighNOSouthPointe HospitalNeutrophils/100 WBC (Bld)76.7 %High43.0 - 75.0 %[facility] HospitalPlatelet mean volume (Bld) [Entitic vol]10.2 fL9.5 - 13.5 fLSaint Louis University HospitalTBH EO #0.4NOSouthPointe HospitalTBH LGH473THUGRay County Memorial Hospital RBC3.8 LowNOSouthPointe HospitalTB TNP86KtktOQHOSaint Louis University HospitalCLINISYNCAPTTon 28-13-5412iUWR Coag (Bld) [Time]26.5 [facility] without diffon 04-17-2025 Platelets (Bld) [#/Vol]251 10*3/uLCleveland Clinic Fairview Hospital Mcv (Fl) By Automated Count93.2[facility] SystemLaboratory - Hematology and Cell countson 53-51-9126Mebhsmcaxg (Bld) [Volume fraction]35.4 %[facility] Hemoglobin (Bld) [Mass/Vol]11.9 g/dLNOVA HealthcareNo Panel Informationon 17-31-4884XZHL HealthcareUrinalysis macro (dipstick) panel (U)on 04-11-2025 Bilirubin, UANegativeNegative - 4(70) +++ mg/dLNOMS HealthcareBlood, UANegative Negative - 50 Surjit/mcLNOMS HealthcareClarity, UAClearNOMS HealthcareColor, UA YellowNOMS HealthcareGlucose, UANegativeNegative - 2000(110) ++++ mg/dLNOVA HealthcareInterpretation and review of laboratory resultsNormalSTEWARD [facility]ALTH [facility]ARE SYSTEM Healthcare Ketones, UANegativeNegative - 160(16) ++++ mg/dLNOMS HealthcareLeukocytes, UA NegativeNegative - 500+++ [place]/mcLNOVA HealthcareNitrite, UANegativeNegative - PositiveNOMS HealthcarepH, UA65 - 9NOMS HealthcareProtein, UANegativeNegative - 2000(20) ++++ mg/dLNOVA HealthcareSpec Grav, UA1.0151 - 1.03N[facility] Healthcare Urobilinogen, UA1.00.2 - 12 mg/dLNOVA HealthcareNOVA HealthcareUrinalysis macro (dipstick) panel (U)on 97-97-4689Gjkmkyzue, UANegativeNegative - 4(70) +++ mg/dL NOMS HealthcareBlood, UANegativeNegative - 50 Surjit/mcLNOMS HealthcareClarity, UA ClearNOMS HealthcareColor, UAYellowNOMS HealthcareGlucose, UANegativeNegative - 2000(110) ++++ mg/dLNOVA HealthcareInterpretation and review of laboratory resultsAbnormalNOMS HealthcareKetones, UANegativeNegative - 160(16) ++++ mg/dL NOMS HealthcareLeukocytes, UAPositiveNegative - 500+++ [place]aleigh/mcLNOMS Healthcare Comment on above:2+Nitrite, UANegativeNegative - PositiveNOMS HealthcarepH, UA65 - 9NOMS HealthcareProtein, UANegativeNegative - 2000(20) ++++ mg/dLNOMS HealthcareSpec Grav, UA1.021 - 1.03NOVA HealthcareUrobilinogen, UA1.00.2 - 12 mg/dLRipley County Memorial Hospital HealthcareALL CBC WITH AUTO DIFFon 57-34-8007KRLQSSZVF ABSOLUTE AUTO0.1NOMS HealthcareBasophils/100 WBC (Bld)0.5 %0.2 - 2.0 %NOMSt. Louis Children'S HospitalEosinophils/100 WBC (Bld)4 %0.9 - 7.0 %[facility] HospitalErythrocyte distribution width (RBC) [Ratio]12.2 %11.0 - 15.0 %[facility] HospitalIMMATURE GRANULOCYTES ABS AUTO0.08HighSaint Louis University HospitalImmature granulocytes/100 WBC (Bld) 0.6 %High0.0 - 0.5 %[facility] HospitalInterpretation and review of laboratory resultsAbnormalSaint Louis University HospitalLYMPHOCYTES ABSOLUTE AUTO2.6NOSouthPointe Hospital Lymphocytes/100 WBC (Bld)18.4 %Low20.5 - 60.0 %[facility] CenterH (RBC) [Entitic mass]31.5 pg26.7 - 34.0 pgSSM Saint Mary's Health CenterHC (RBC) [Mass/Vol]34.1 g/dL29.9 - 35.2 g/dLSSM Saint Mary's Health CenterV (RBC) [Entitic vol]92.4 fL81.0 - 99.0 fLSaint Louis University HospitalMONOCYTES ABSOLUTE AUTO0.6[facility] HospitalMonocytes/100 WBC (Bld)4.3 % 1.7 - 12.0 %[facility] HospitalNEUTROPHILS ABSOLUTE AUTO10.1HighSaint [facility] Hospital Neutrophils/100 WBC (Bld)72.2 %43.0 - 75.0 %[facility] HospitalPlatelet mean volume (Bld) [Entitic vol]10.2 fL9.5 - 13.5 fLSaint Louis University HospitalTB EO #0.6[facility] TBH ZNE503SWWZRay County Memorial Hospital RBC3.94LowPershing Memorial Hospital WBC13.9HighSaint Louis University HospitalCLINISYNCCBC without diffon 90-15-0805Bxmkbfhiy (Bld) [#/Vol]261 10*3/uLCleveland Clinic South Pointe HospitalRb Mcv (Fl) By Automated Count92.4[facility] HospitalDrug Screen, Urineon 27-08-2189Oiukdgulfnv/MethamphetamineNegative [facility] HospitalBarbituratesNegativeC[facility] Clinic [facility] BenzodiazepinesNegativeCleveland Clinic South Pointe HospitalCocaine MetaboliteNegative [facility] HospitalMethadoneNegativeCleveland Clinic South Pointe HospitalOpiatesNegative [facility] HospitalOxycodoneNegativeCleveland Clinic South Pointe HospitalPhencyclidine NegativeCleveland Clinic South Pointe HospitalThc Marijuana, UrineNegativeCleveland Clinic South Pointe HospitalHBV surface Ag IA Qlon 22-55-6740Mgknqpmrq B Surface AntigenNegative [facility] HospitalHCV Ab IA Qlon 47-58-6156GXX Ab Ql (S)Non-Reactive [facility] HospitalHIV 1+2 Ab+HIV1 p24 Ag IA Qlon 07-58-9212FYN 1&2 AB/AG Non-ReactiveCleveland Clinic South Pointe HospitalHemoglobin A1con 86-83-2352LvR0y (Bld) [Mass fraction]5.1 %4.0 - 6.0 %[facility] HospitalLaboratory - Hematology and Cell countson 41-91-2285Kvqnyfneam (Bld) [Volume fraction]36.4 %[facility] Hemoglobin (Bld) [Mass/Vol]12.4 g/dLSaint Louis University HospitalNo Panel Informationon 00-62-3236GHYN HealthcareRubella IGG immune statuson 49-17-0149Msxhwhi immune IgGIMMUNECleveland Clinic South Pointe HospitalT. pallidum IgG+IgM IA Ql (S)Ordered By: Christina Bertrand on 11-08-9296YylxvzxvUql-ReactiveCleveland Clinic South Pointe HospitalType and screenon 41-98-1726Nxb/Rh(D)PositiveCleveland Clinic South Pointe HospitalHCG ( test) Ql (U)on 94-32-3492Mccjacnoqcekok and review of laboratory resultsAbnormWills Eye Hospital Preg Test, UrPositiveNegativeNOSouthPointe HospitalNOVA HealthcareUS OB TRANSVAGINALon 96-47-4742EF OB TRANSVAGINALFINDINGS: A single intrauterine gestational sac [...] No LMP recorded.Urinalysis macro (dipstick) panel (U)on 20-87-6204Ueacmhsfm, UA NegativeNegative - 4(70) +++ mg/dLNOMS HealthcareBlood, UANegativeNegative - 50 Surjit/Knickerbocker HospitalNOVA HealthcareClarity, UAClearNOMS HealthcareColor, UAYellowNOMS HealthcareGlucose, UANegativeNegative - 2000(110) ++++ mg/dLNOVA Healthcare Interpretation and review of laboratory resultsNormalNOMS HealthcareKetones, UA NegativeNegative - 160(16) ++++ mg/dLNOVA HealthcareLeukocytes, UANegative Negative - 500+++ Kaleigh/mcLNOVA HealthcareNitrite, UANegativeNegative - Positive NOMS HealthcarepH, UA75 - 9NOMS HealthcareProtein, UANegativeNegative - 2000(20) ++++ mg/dLNOVA HealthcareSpec Grav, UA1.0051 - 1.03NOMS HealthcareUrobilinogen, UA0.20.2 - 12 mg/dLNOMS HealthcareNOMS HealthcareALL PROGESTERONEon 01-18-2025 PROGESTERONE8.7 ng/mL.[facility] HealthcareComment on above:Follicular phase 0.1 - 0.9 Luteal phase 1.8 - 23.9 Ovulation phase 0.1 - 12.0 First trimester 11.0 - 44.3 Second trimester 25.4 - 83.3 Third trimester 58.7 - 214.0 Postmenopausal 0.0 - 0.1 Performed at: [address] [id number] Driver/Refuse Collector: Yobany Blount PhD, Phone: [phone] [facility] EriePATHOLOGY REQUEST FOR LAB CORPon 56-75-7150QDUXBVKNG REQUEST FOR LAB CORPNOMS HealthcareComment on above:See report. Scanned copy available in EMR.SKIN SPECIMENFIREncompass Health Rehabilitation Hospital of Nittany ValleyALL PROGESTERONEon 73-39-0944RHMFTEZOQFPZ11.9 ng/mL.NOMS HealthcareComment on above:Follicular phase 0.1 - 0.9 Luteal phase 1.8 - 23.9 Ovulation phase 0.1 - 12.0 First trimester 11.0 - 44.3 Second trimester 25.4 - 83.3 Third trimester 58.7 - 214.0 Postmenopausal 0.0 - 0.1 Performed at: [address] [id number] Driver/Refuse Collector: Yobany Blount PhD, Phone: [phone] [facility] EriePathology Request for Lab Corpon 39-37-1004Tlcsfiwjv Request for Lab CorpNoFormerly Park Ridge Health Physician GroupComment on above:Order Comment: SKIN SPECIMENResult Comment: See report. Scanned copy available in EMR. PERFORMED BY: [place] [address] PATHOLOGIST WEED CUTTER ANAHI TRAN M.D.Performed By: #### PATH TO [facility] #### [place] [address] USAIGP,APTIMA HPV,AGE GDLNon 90-69-6150IRS GDLN ACOG TESTING Note.NOMS HealthcareComment on above:TESTS RESULT FLAG UNITS REF RANGE LAB Clinician Provided Cytology Information Source.............Cervix;Endocervix No. of containers..01 ThinPrep Vial Age Alberto FORREST Marjorie... 32 FLAG LEGEND: L-Low Normal,H-High Normal,LL-Alert Low,HH-Alert High <-Panic Low,>-Panic High,A-Abnormal,AA-Critical Abnormal Performed at: 01 =[address] [address] Vonnie Woodard MD, HPV APTIMANegativeNegativeNOMS HealthcareComment on above:This nucleic acid amplification test detects fourteen high- risk HPV types (16,18,31,33,35,39,45,51,52,56,58,59,66,68) without differentiation. Performed at: =[address] [id number] Driver/Refuse Collector: Vonnie Woodard MD, Phone: [phone] Performed at: [address] [id number] Driver/Refuse Collector: Vonnie Woodard MD, Phone: [phone] IGP, APTIMA HPV, RFX 16/18,45Note.NOMS HealthcareComment on above:TESTS RESULT FLAG UNITS REF RANGE LAB DIAGNOSIS: 02 NEGATIVE FOR INTRAEPITHELIAL LESION OR MALIGNANCY. Specimen adequacy: 02 Satisfactory for evaluation. Endocervical and/or squamous metaplastic cells (endocervical component) are present. Performed by: 02 Quiana Vyas, Real Estate Site Analyst (ASCP) . 02 Note: Note 02 The [...] <-Panic Low,>-Panic High,A-Abnormal,AA-Critical Abnormal Performed at: [address] [address] Vonnie Woodard MD, BRUSH-SPATULA CERVIX ENDOCERVIX CLINISYNCNOSouthPointe HospitalALL PROGESTERONEon 29-75-9471HKHTKRFHBGZV35.2 ng/mL.[facility] HealthcareComment on above:Follicular phase 0.1 - 0.9 Luteal phase 1.8 - 23.9 Ovulation phase 0.1 - 12.0 First trimester 11.0 - 44.3 Second trimester 25.4 - 83.3 Third trimester 58.7 - 214.0 Postmenopausal 0.0 - 0.1 Performed at: [facility]coJeff[facility] [address], [place] [id number] Driver/Refuse Collector: Yobany Blount PhD, Phone: [phone] CLINISYNCNOHannibal Regional Hospital AND AUTO DIFFon 60-24-4749ZULRUSYO BASOPHIL0.1 X10E9/LNormal0.0-0.2PKettering Health SpringfieldComment on above:Performed By: #### CBCGavin, CMP, 28233-9, 97609-9, THYR #### [facility] ([id number]) [address] [place] [address]348JLJAEXKL NEUTROPHIL6.9 X10E9/LHigh1.5-6.6ProDel Sol Medical CenterComment on above:Performed By: #### CBCA, [facility], , 96170-1, THYR #### [facility] ([id number]) [address] [place] [address] 55214Tbyebnvwg/100 WBC (Bld)1.1 %NormalWilson Health Comment on above:Performed By: #### CBCA, [facility], , 79929-2, THYR #### [facility] ([id number]) [address] [place] [address] 03309Depngnifvjt (Bld) [#/Vol]0.3 10*3/uLNormal0.0-0.4Wilson HealthComment on above:Performed By: #### CBCA, [facility], , 41876-1, THYR #### [facility] ([id number]) [address] [place] [address] 21727Bwedqedpncr/100 WBC (Bld)2.3 %NormalWilson Health Comment on above:Performed By: #### CBCA, CMP, , 32458-1, THYR #### [facility] ([id number]) [address] [place] [address] 56507Impexmiuynk distribution width (RBC) [Ratio]12.6 %Normal 11.5-15.0Wilson HealthComment on above:Performed By: #### CBCA, CMP, , 78454-0, THYR #### [facility] ([id number]) [address] [place] [address] 48891Jeqxcivkoj (Bld) [Volume fraction]40.4 %Ybbzzc54-93KkyUketkdDel Sol Medical CenterComment on above:Performed By: #### KARSON, CMP, 68405-2, 56629-3, THYR #### [facility] ([id number]) [address] [place] [address] 54294Enzwqnixaw (Bld) [Mass/Vol]13.7 g/hUZppltk75.7-15.5PKettering Health SpringfieldComment on above:Performed By: #### KARSON, CMP, 69855-7, 30145-0, THYR #### [facility] ([id number]) [address] [place] [address] 03564Nhxfpgrhpca (Bld) [#/Vol]3.6 10*3/uLHigh1.0-3.5PKettering Health SpringfieldComment on above:Performed By: #### KARSON, CMP, 11050-4, 85930-8, THYR #### [facility] ([id number]) [address] [place] [address] 23309Nswfupctayv/100 WBC (Bld)31.6 %NormalWilson Health Comment on above:Performed By: #### CBCGavin, CMP, 12374-1, 01981-6, THYR #### [facility] ([id number]) [address] [place] [address] 06637YVV (RBC) [Entitic mass]30.9 vzNxddhy04-04MdeSampjyDel Sol Medical CenterComment on above:Performed By: #### CBCA, CMP, 64222-0, 72834-1, THYR #### [facility] ([id number]) [address] [place] [address] 62540LDJG (RBC) [Mass/Vol]34.0 g/aIYzrsad28-30MbqIcjkpaWilson HealthComment on above:Performed By: #### CBCA, CMP, 05331-9, 19738-2, THYR #### [facility] ([id number]) [address] [place] [address] 07870OEL (RBC) [Entitic vol]91 tZOkvami96-463SntIdqjxn Fremont HospitalComment on above:Performed By: #### CBCA, CMP, 29569-1, 91413-7, THYR #### [facility] ([id number]) [address] [place] [address] 28545Rinwtzdzm (Bld) [#/Vol]0.6 10*3/uLNormal0-0.9Wilson HealthComment on above:Performed By: #### CBCA, CMP, 85565-2, 81801-5, THYR #### [facility] ([id number]) [address] [place] [address] 26556Glidjacxa/100 WBC (Bld)5.4 %[facility] Comment on above:Performed By: #### CBCA, CMP, 63745-9, 76381-6, THYR #### [facility] ([id number]) [address] [place] [address] 71300Pspgbzacsnq/100 WBC (Bld)59.6 %[facility] Comment on above:Performed By: #### CBCA, CMP, 61764-4, 07353-0, THYR #### [facility] ([id number]) [address] [place] [address] 47892Rozwrmyg mean volume (Bld) [Entitic vol]7.9 fLNormal7-12 ProMPomerado HospitalComment on above:Performed By: #### CBCA, CMP, 17233- 9, 01715-7, THYR #### [facility] ([id number]) [address] [place] [address] 52072Lkgdivtik (Bld) [#/Vol]346 10*3/pWZnfeny525-934LbvBteowg [facility]remont HospitalComment on above:Performed By: #### KARSON, CMP, 01888-1, 84514-8, THYR #### [facility] ([id number]) [address] [place] [address] 50974EVB COUNT4.44 X10E12/LNormal3.80-5.20[facility] Comment on above:Performed By: #### KARSON, CMP, 24071-7, 53508-8, THYR #### [facility] ([id number]) [address] [place] [address] 45006COL (Bld) [#/Vol]11.5 10*3/uLHigh4.0-11.0Wilson HealthComment on above:Performed By: #### KARSON, CMP, 39150-1, 02102-8, THYR #### [facility] ([id number]) [address] [place] [address] 31182FRHSMQCJXLQPO METABOLIC PANELon 66-10-4602Ujdpjga [Mass/Vol]4.0 g/dLNormal3.2-5.3PKettering Health SpringfieldComment on above:Performed By: #### KARSON, CMP, 45863-1, 87905-8, THYR #### [facility] ([id number]) [address] [place] [address] 94502ARV [Catalytic activity/Vol]50 U/RSygxcq24-956CxjBcdzzcDel Sol Medical CenterComment on above:Performed By: #### MATTHEWA, CMP, 36705-9, 05094-2, THYR #### [facility] ([id number]) [address] [place] [address] 84268MHZ [Catalytic activity/Vol]19 U/LNormal0-31PKettering Health SpringfieldComment on above:Performed By: #### LUKAS TY, 03094-9, 69296-2, THYR #### [facility] ([id number]) [address] [place] [address] 62843Ovjoz gap [Moles/Vol]11 mmol/LNormal5-15ProDel Sol Medical CenterComment on above:Performed By: #### KARSON, LUKAS, 65675-7, 77521-6, THYR #### [facility] ([id number]) [address] [place] [address] 54400ZIT [Catalytic activity/Vol]18 U/LNormal0-41ProDel Sol Medical CenterComment on above:Performed By: #### LUKAS TY, 73402-4, 40759-3, THYR #### [facility] ([id number]) [address] [place] [address] 55285Csmkcwnfd [Mass/Vol]0.4 mg/dLNormal0.3-1.2PKettering Health SpringfieldComment on above:Performed By: #### LUKAS TY, 99296-9, 66175-9, THYR #### [facility] ([id number]) [address] [place] [address] 32051Rdpfmno [Mass/Vol]9.4 mg/dLNormal8.5-10.5PKettering Health SpringfieldComment on above:Performed By: #### KARSON, LUKAS, 71892-2, 77798-3, THYR #### [facility] ([id number]) [address] [place] [address] 20414Zynqdkcv [Moles/Vol]106 mmol/MCaflvi92-338TpsSdwhypDel Sol Medical CenterComment on above:Performed By: #### LUKAS TY, 21626-7, 97261-0, THYR #### [facility] ([id number]) [address] [place] [address] 22420YB7 [Moles/Vol]23 mmol/QHbkhjr49-51DtnSlzeiyKettering Health Springfield Comment on above:Performed By: #### LUKAS TY, 96289-0, 75303-0, THYR #### [facility] ([id number]) [address] [place] [address] 35554Odvksxdnvp [Mass/Vol]0.76 mg/dLNormal0.40-1.00Wilson HealthComment on above:Result Comment: METHOD TRACEABLE TO IDMS STANDARD Performed By: #### LUKAS TY, 71409-5, 23941-6, THYR #### [facility] ([id number]) [address] [place] [address] 41795iOUB (CKD-EPI) NON-RACE DEPENDENT>90Normal>59ProDel Sol Medical CenterComment on above:Result Comment: Reported eGFR is based on the CKD-EPI 2020 equation that does not use a race coefficient.Performed By: #### LUKAS TY, , 49809-4, THYR #### [facility] ([id number]) [address] [place] [address] 27702Dzvennx [Mass/Vol]114 mg/hHPmdk64-68HnsWpeltnWilson Health Comment on above:Performed By: #### LUKAS TY, , 19571-5, THYR #### [facility] ([id number]) [address] [place] [address] 67626Lvnbohvag [Moles/Vol]4.1 mmol/LNormal3.5-5.0Wilson HealthComment on above:Performed By: #### LUKAS TY, 69410-7, 43590-5, THYR #### [facility] ([id number]) [address] [place] [address] 24006Znduglq [Mass/Vol]7.3 g/dLNormal6.0-8.0Wilson HealthComment on above:Performed By: #### CBCGavin, CMP, 47507-4, 98951-0, THYR #### [facility] ([id number]) [address] [place] [address] 46219Vcntyb [Moles/Vol]140 mmol/PPnbfuk119-544YlaWelwjh [facility]remont HospitalComment on above:Performed By: #### KARSON, LUKAS, 96240-4, 33659-9, THYR #### [facility] ([id number]) [address] [place] [address] 45393Hdrs nitrogen [Mass/Vol]13 mg/dLNormal5-23Wilson HealthComment on above:Performed By: #### KARSON, LUKAS, 89095-9, 64073-6, THYR #### [facility] ([id number]) [address] [place] [address] 08550Nyumuv D-dimer DDU (PPP) [Mass/Vol]on 11-04-2024D DIMER<150 Normal<255Wilson HealthComkalamazoo psychiatric hospital on above:Result Comment: Results <255 ng/mL DDU: The presence of a VTE can safely be excluded with a negative D-Dimer result and Wells score. A negative result doesn't exclude the possibility of DIC. The test be repeated along with other diagnostic tests if the patient's symptoms persist or worsen. [email or web address] By: #### CBCA, CMP, 62323-6, 30485-2, THYR #### [facility] ([id number]) [address] [place] [address] 15170LDS ( test) Ql (U)on 66-89-0328Otje HCG ( test) Ql (U)NegativeNormalNEGProDel Sol Medical CenterComment on above: Performed By: #### 2106-3 #### [facility] ([id number]) [address] [place] [address], [place] [address]EDKSQFQYGke 49-50-1424Ypznbbvcz [Mass/Vol]2.3 mg/dLNormal 1.8-2.6ProDel Sol Medical CenterComment on above:Performed By: #### LUKAS TY, 53819-8, 70573-3, THYR #### [facility] ([id number]) [address] [place] [address], [place] [address]ZKKXTUP PROFILEon 92-52-2790Lejj T4 [Mass/Vol]0.88 ng/dLNormal 0.61-1.60ProDel Sol Medical CenterComment on above:Performed By: #### LUKAS TY, 75003-9, 94863-3, THYR #### [facility] ([id number]) [address] [place] [address], [place] [address]TXD3.78 uIU/mLNormal0.49-4.67ProDel Sol Medical CenterComment on above:Performed By: #### LUKAS TY, 10584-0, 26246-2, THYR #### [facility] ([id number]) [address] [place] [address] [place] [address]HOS MACROSCOPIC NURon 71-91-4962WYRPOZPAJ NURNegativeNormalNEG ProMPomerado HospitalComment on above:Performed By: #### NUM #### [facility] ([id number]) [address] [place] [address], [place] [address]LCDPA/HGB NURTraceAbnormalNEGWilson HealthComment on above:Performed By: #### NUM #### [facility] ([id number]) [address] [place] [address], [place] [address]CSZGJBE NURNegativeNormalNEGWilson HealthComment on above:Performed By: #### NUM #### [facility] ([id number]) [address] [place] [address] 44405UYLGKAJ NURNegativeNormalNEGWilson HealthComment on above:Performed By: #### NUM #### [facility] ([id number]) [address] [place] [address] 14891DHVDYJYCN ESTERASE NURSmallAbnormalNEGWilson HealthComment on above:Performed By: #### NUM #### [facility] ([id number]) [address] [place] [address] 79119DPQHCRY NURNegativeNormalNEGWilson HealthComment on above:Performed By: #### NUM #### [facility] ([id number]) [address] [place] [address] 29[address]PP NUR6.6Yavxgy6.0-8.5PKettering Health SpringfieldComment on above:Performed By: #### NUM #### [facility] ([id number]) [address] [place] [address] 53534TNSDFLF NURNegativeNormalNEGWilson HealthComment on above:Performed By: #### NUM #### [facility] ([id number]) [address] [place] [address] [place] [address]OUSKHZNE GRAVITY NUR1.823Zkfvxd8.003-1.035ProDel Sol Medical CenterComment on above:Performed By: #### NUM #### [facility] ([id number]) [address] [place] [address] 50800UXTWIWYYVMVH NUR0.2 eu/dLNormal<1.1PKettering Health Springfield Comment on above:Performed By: #### NUM #### [facility] ([id number]) [address] [place] [address] 80577ZK CHEST 1 VWon 07-74-1031DP CHEST 1 VWXR CHEST 1 VW History: Palpitations Exam/Technique: Portable upright AP chest Comparison: 11/12/2022 Findings: There is no active pulmonary or pleural disease displayed. Cardiac and mediastinal contours appear within normal limits on this AP projection. IMPRESSION: No evidence of active pulmonary disease. Finalized by Tres Giron MD on 11/04/2024 1:02 AMNormalCleveland Clinic Akron General L[facility] Hospitalca [facility] PROGESTERONEon 73-09-7396ILGPIJJKHOGR77.8 ng/mL.[facility] Comment on above:Follicular phase 0.1 - 0.9 Luteal phase 1.8 - 23.9 Ovulation phase 0.1 - 12.0 First trimester 11.0 - 44.3 Second trimester 25.4 - 83.3 Third trimester 58.7 - 214.0 Postmenopausal 0.0 - 0.1 Performed at: [facility] Quality[address] [id number] Driver/Refuse Collector: Yobany Blount PhD, Phone: [phone] [facility] HOSPITALFlypadHarry S. Truman [facility] PROGESTERONEon 69-53-6131CFUQMAUHPMPZ09.3 ng/mL.NOMS HealthcareComment on above:Follicular phase 0.1 - 0.9 Luteal phase 1.8 - 23.9 Ovulation phase 0.1 - 12.0 First trimester 11.0 - 44.3 Second trimester 25.4 - 83.3 Third trimester 58.7 - 214.0 Postmenopausal 0.0 - 0.1 Performed at: [facility] [id number] Driver/Refuse Collector: Yobany Blount PhD, Phone: [phone] [facility] PROGESTERONEon 80-91-9098IEAKXBIDMGNV7.5 ng/mL.NOMS HealthcareComment on above:Follicular phase 0.1 - 0.9 Luteal phase 1.8 - 23.9 Ovulation phase 0.1 - 12.0 First trimester 11.0 - 44.3 Second trimester 25.4 - 83.3 Third trimester 58.7 - 214.0 Postmenopausal 0.0 - 0.1 Performed at: [facility] [id number] Driver/Refuse Collector: Yobany Blount PhD, Phone: [phone] [facility] OAK[facility] HOSPITALXunLightTennova Healthcare Cleveland PROGESTERONEon 59-38-6068MWZHHGNZGVQG69.8 ng/mL.[facility] HealthcareComment on above:Follicular phase 0.1 - 0.9 Luteal phase 1.8 - 23.9 Ovulation phase 0.1 - 12.0 First trimester 11.0 - 44.3 Second trimester 25.4 - 83.3 Third trimester 58.7 - 214.0 Postmenopausal 0.0 - 0.1 Performed at: [facility] [address] [id number] Driver/Refuse Collector: Yobany Blount PhD, Phone: [phone] [facility] CBC WITH AUTO DIFFon 62-03-1873RCGTZICZG ABSOLUTE AUTO0.1NOMS HealthcareBasophils/100 WBC (Bld)0.6 %0.2 - 2.0 %[facility] Eosinophils/100 WBC (Bld)2.8 %0.9 - 7.0 %NOM HealthcareErythrocyte distribution width (RBC) [Ratio]12.1 %11.0 - 15.0 %NOM HealthcareHematocrit (Bld) [Volume fraction]40.6 %36.0 - 48.0 %[facility] HospitalHemoglobin (Bld) [Mass/Vol]13.5 g/dL 12.0 - 16.0 g/dLSaint Louis University HospitalIMMATURE GRANULOCYTES ABS AUTO0.02NOMS [facility] Immature granulocytes/100 WBC (Bld)0.3 %0.0 - 0.5 %NOMSt. Louis Children'S HospitalLYMPHOCYTES ABSOLUTE AUTO1.8NOMS HealthcareLymphocytes/100 WBC (Bld)23.0 %20.5 - 60.0 %[facility] CenterH (RBC) [Entitic mass]30.6 pg26.7 - 34.0 pgNOUniversity of Missouri Health CareHC (RBC) [Mass/Vol]33.3 g/dL29.9 - 35.2 g/dLSaint Louis University HospitalMCV (RBC) [Entitic vol]92.1 fL 81.0 - 99.0 fLNOSouthPointe HospitalMONOCYTES ABSOLUTE AUTO0.5NOMS [facility] Monocytes/100 WBC (Bld)6.6 %1.7 - 12.0 %NOM HealthcareNEUTROPHILS ABSOLUTE AUTO 5.3NOMS HealthcareNeutrophils/100 WBC (Bld)66.7 %43.0 - 75.0 %[facility] Platelet mean volume (Bld) [Entitic vol]9.8 fL9.5 - 13.5 fLNOMS [facility] EO #0.2[facility] CenterTBH [id number] [facility] RBC4.41NOMS [facility] WBC8.0 NOMS HealthcareCLINISYNCNOMS HealthcareUS PELVIS W/ TRANSVAGINALon [id number], [place] [address] Ultrasound Report Signed Patient: ELLEN RAMIRES MR#: [id number] : 1990 Acct:[id number] Age/Sex: 34 / F ADM Date: 04/24/24 Loc: US Attending Dr: Caesar Broderick D.O. Ordering Physician: Caesar Broderick D.O. Date of Service: 04/24/24 Procedure(s): US pelvis w/ transvaginal Accession Number(s): [id number] cc: Caesar Broderick D.O.; Sabiha Aviles [place] [address] Patient Name: ELLEN RAMIRES MRN: [id number] date: 1990 Sex: F Assigned Patient Location: US Current Patient Location: Accession/Order Number: [id number] Exam Date: 04/24/2024 14:00 Report Date: 04/25/2024 [...] Dean M.D. Signed By: 04/25/2437 DD/ TD/TT: Switchboard Operator Helper:TBHRadiology, Radiologist, - 04/25/2024 [place] [address] Ultrasound Report Signed Patient: ELLEN RAMIRES MR#: [id number] : 1990 Acct:[id number] Age/Sex: 34 / F ADM Date: 04/24/24 Loc: US Attending Dr: Caesar Broderick D.O. Ordering Physician: Caesar Broderick D.O. Date of Service: 04/24/24 Procedure(s): US pelvis w/ transvaginal Accession Number(s): [id number] cc: Caesar Broderick D.O.; Sabiha Aviles [employer] [place] [id number] Patient Name: ELLEN RAMIRES MRN: [id number] date: 1990 Sex: F Assigned Patient Location: Current Patient Location: Accession/Order Number: [id number] Exam Date: 04/24/2024 14:00 Report Date: 04/25/2024 [...] M.D. Signed By: 04/25/2437 DD/ 3 TD/TT: Switchboard Operator Helper: [facility] HospitalRadiology Study observation (narrative)[facility] HospitalUS PELVIS W/ TRANSVAGINALOrdered By: Radiologist Radiology on 56-65-5191RPUGSaint [facility] University Hospital Work Phone: aLL CBC WITH AUTO DIFFon 45-64-9171QMVZGRXZR ABSOLUTE AUTO0.1NOMS HealthcareBasophils/100 WBC (Bld)0.5 %0.2 - 2.0 %[facility] Eosinophils/100 WBC (Bld)2.8 %0.9 - 7.0 %[facility] HospitalErythrocyte distribution width (RBC) [Ratio]12.0 %11.0 - 15.0 %[facility] HospitalHematocrit (Bld) [Volume fraction]39.7 %36.0 - 48.0 %[facility] HospitalHemoglobin (Bld) [Mass/Vol]13.4 g/dL 12.0 - 16.0 g/dLSaint Louis University HospitalIMMATURE GRANULOCYTES ABS AUTO0.03[facility] Immature granulocytes/100 WBC (Bld)0.3 %0.0 - 0.5 %[facility] HospitalInterpretation and review of laboratory resultsAbnormalNOSouthPointe HospitalLYMPHOCYTES ABSOLUTE AUTO2.9N[facility]S [facility] CenterLymphocytes/100 WBC (Bld)24.4 %20.5 - 60.0 %[facility] CenterH (RBC) [Entitic mass]30.7 pg26.7 - 34.0 pgSSM Saint Mary's Health CenterHC (RBC) [Mass/Vol]33.8 g/dL29.9 - 35.2 g/dLSSM Saint Mary's Health CenterV (RBC) [Entitic vol]91.1 fL 81.0 - 99.0 fLSTEWARD HEALTH CARE SYSTEM HealthcareMONOCYTES ABSOLUTE AUTO0.6[facility] Monocytes/100 WBC (Bld)5.2 %1.7 - 12.0 %[facility] HealthcareNEUTROPHILS ABSOLUTE AUTO 8.0HighNOVA HealthcareNeutrophils/100 WBC (Bld)66.8 %43.0 - 75.0 %[facility] HealthcarePlatelet mean volume (Bld) [Entitic vol]10.1 fL9.5 - 13.5 fLSaint Louis University HospitalTBH EO #0.3NOMS HealthcareTB [id number] [facility] CenterTB RBC4.36N[facility] Medical CenterTBH WBC12.0HighNOVA HealthcareCLINISYNCNOMS HealthcarePOCT EKGOrdered By: Sheyla Powell on 87-64-9050RzePwvafwUniversity Hospitals Ahuja Medical CenterNo Panel Information Ordered By: Pinky Singh on 00-62-9843Yltwd Strep (POC)[facility] HospitalCytology Cervical or vaginal smear or scraping studyon 11-19-2022 [facility] HealthcareCOVID/FLU/RSV RT-PCRon 59-18-6679FSZA-CoV-2 (COVID-19) RNA PEACE+probe Ql (Unsp spec)PositiveNort CloudWork Other COVID/FLU/RSV RT-PCRNegativeNort CloudWork Other Vital Signs Date TimeVital SignValuePerforming GbrdhtpokEwdtajmp53-37-0523 13:42-0500Body mass index (BMI) [Ratio]43.33 kg/b1Wnrnc Davie DO Work Phone: [facility] HospitalWbajtrxmyz86-01-1162 13:42-0500Body .28 kgCorey Davie DO Work Phone: NOSouthPointe HospitalCboocausxd23-30-9520 13:42-0500Diastolic blood aktepkam59 mm[Hg]Caesar Davie DO Work Phone: [phone] [place], [place] [address]Iythgamlah74-84-3747 13:42-0500Systolic blood hnubilst314 mm[Hg]Caesar Davie DO Work Phone: 1([phone] [place], [place] 6606410-15-2025 09:03-0400Diastolic blood nnbgfajp46 mm[Hg]Rody Uyen [employer] Work Phone: 1(419)[facility] [place], [place] [address]Hcnwddujon16-23-7608 09:03-0400Systolic blood rtnbdbje405 mm[Hg]Rody Uyen [employer] Work Phone: 1(419)[address] [place] [address]-15-2025 09:02-0400Body mass index (BMI) [Ratio]42.99 kg/j5Chwtxzuc Uyen [employer] Work Phone: 1(502)[address] [place], [place] 6606410-15-2025 09:02-0400Body fgxhep166.25 kgKristina Uyen [employer] Work Phone: 1(419)[address] [place], [place] 6606410-09-2025 16:31-0400Body mass index (BMI) [Ratio]43.49 kg/i8Oojjxvzs Uyen [employer] Work Phone: 1(717)[address] [place], [place] 6606410-09-2025 16:31-0400Body eolqvx041.73 kgKristina Uyen [employer] Work Phone: 1(352)[facility] [place], [place] [address]Enecdmzsxc42-29-6885 16:31-0400Diastolic blood yswgvumb56 mm[Hg]Rody Uyen [employer] Work Phone: 1(419)[address] [place], [place] 6606410-09-2025 16:31-0400Systolic blood ebtpbplr773 mm[Hg]Rody Uyen [employer] Work Phone: 1(817)[address] [place], [place] 6606410-02-2025 15:07-0400Body mass index (BMI) [Ratio]43.03 kg/k9Iztohmnm Uyen [employer] Work Phone: 1(419)[address] [place], [place] 6606410-02-2025 15:07-0400Body vpudpk942.37 kgKristina Uyen [employer] Work Phone: 1(183)[address] [place], [place] 6606410-02-2025 15:07-0400Diastolic blood hghxahwy33 mm[Hg]Rody Qiu [employer] Work Phone: 1(595)[address] [place], [place] 6606410-02-2025 15:07-0400Systolic blood mpbofsqe272 mm[Hg]Rody Qiu [employer] Work Phone: 1(419)[address] [place], [place] 6606409-26-2025 07:51-0400Body tycrqd328.7 cmYordy Cruz MD Work Phone: 1(419)[address] [place], [place] 4310309-26-2025 07:51-0400Body mass index (BMI) [Ratio]42.96 kg/m2Yordy Cruz MD Work Phone: 1(419)[address] [place], [place] 4310309-26-2025 07:51-0400Body .14 kgYordy Cruz MD Work Phone: 1(419)[address] [place], [place] 4310309-26-2025 07:51-0400Diastolic blood uqzlinbm95 mm[Hg]Yordy Cruz MD Work Phone: 1(419)[address] [place], [place] 4310309-26-2025 07:51-0400Heart rate 87 /Glenna Cruz MD Work Phone: 1(419)[address] [place], [place] 4310309-26-2025 07:51-0400Systolic blood kydagjug719 mm[Hg]Yordy Cruz MD Work Phone: 1(279)[address] [place], [place] 4310309-04-2025 11:30-0400Body mass index (BMI) [Ratio]42.88 kg/u3Dayov Davie DO Work Phone: 1(766)[facility] [place], [place] [address]Lojbvwkhnc84-85-1169 11:30-0400Body aguldl459.91 kgCorey Davie DO Work Phone: 1(463)[address] [place], [place] 6606409-04-2025 11:30-0400Diastolic blood xcqrjuhh84 mm[Hg]Caesar Davie DO Work Phone: 1(790)[address] [place], [place] 6606409-04-2025 11:30-0400Systolic blood vmltrwiu465 mm[Hg]Caesar Davie DO Work Phone: 1(112)[address] [place], [place] 6606408-21-2025 11:00-0400Body mass index (BMI) [Ratio]42.63 kg/y8Sysjz Davie DO Work Phone: 1(424)053-[address] [place], [place] [address]Kfycenbbce58-23-1669 11:00-0400Body yqxsnr611.19 kgCorey Davie DO Work Phone: 1(926)002-[address] [place], [place] [address]Byrxojabyp25-13-3545 11:00-0400Diastolic blood mm[Hg]Caesar Davie DO Work Phone: 1(329)418-[address] [place], [place] [address]Sgndhpsfvx40-98-1257 11:00-0400Systolic blood usluyweg710 mm[Hg]Caesar Davie DO Work Phone: 1(553)291-[address] [place], [place] [address]Ekhyafiqjn89-12-3418 11:42-0400Body mass index (BMI) [Ratio]42.29 kg/f9Decpy Davie DO Work Phone: 1(470)112-[address] [place], [place] [address]Xzbxsljqoj81-52-2970 11:42-0400Body picbtk173.15 kgCorey Davie DO Work Phone: 1(901)819-[address] [place], [place] [address]Phtjpdtewt05-21-2193 11:42-0400Diastolic blood fmwadgex64 mm[Hg]Caesar Davie DO Work Phone: 1(079)776-[address] [place], [place] [address]Mxvkvuxhqt88-31-8097 11:42-0400Systolic blood imdzibdh203 mm[Hg]Caesar Davie DO Work Phone: 1(852)511-[address] [place], [place] [address]Dvnlxpzzvg86-05-1971 10:03-0400Body mass index (BMI) [Ratio]41.66 kg/e8YxkrlG[facility]neur [facility]07-11-2025 10:03-0400Body weight 124.29 kgGouverneur Health07-11-2025 10:03-0400Diastolic blood cgumvzav87 mm[Hg][facility]07-11-2025 10:03-0400Systolic blood mm[Hg][facility]05-15-2025 10:52-0400Body .7 Gilmer Lopez MD Work Phone: [facility]05-15-2025 10:52-0400 Body mass index (BMI) [Ratio]40.84 kg/n0ScrlcjRobbie Lopez MD Work Phone: 1(216)[address] [place], [place] 2851005-15-2025 10:52-0400 Body nrhzfhplfhu27.81 [degF]Robbie Lopez MD Work Phone: 1(216)[address] [place], [place] 2851005-15-2025 10:52-0400 Body idytjs148.84 kgRobbie Lopez MD Work Phone: 1(216)[address] [place], [place] 2851005-15-2025 10:52-0400 Diastolic blood mm[Hg]Robbie Lopez MD Work Phone: 1(216)[address] [place], [place] 2851005-15-2025 10:52-0400 Heart rate73 /minRobbie Lopez MD Work Phone: 1(216)[address] [place], [place] 2851005-15-2025 10:52-0400 Systolic blood wmhanmud333 mm[Hg]Robbie Lopez MD Work Phone: 1(216)[address] [place], [place] 2851004-29-2025 13:38-0400 Body mass index (BMI) [Ratio]40.35 kg/b0Lbogj Davie DO Work Phone: 1(098)645-[address] [place], [place] [address]Rchjwitngn21-04-4748 13:38-0400Body ymrclu405.39 kgCorey Davie DO Work Phone: 1(009)879-[address] [place], [place] [address]Elolpdhhuf99-45-3226 13:38-0400Diastolic blood mm[Hg]Caesar Davie DO Work Phone: 1(696)334-[address] [place], [place] [address]Ctqlbcwjge68-72-6670 13:38-0400Systolic blood nwylpcym390 mm[Hg]Caesar Davie DO Work Phone: 1(942)347-[address] [place], [place] [address]Oqsfmwwxgc71-84-7188 14:36-0400Body mass index (BMI) [Ratio]40.75 kg/d7Wqjqo Davie DO Work Phone: 1(305)300-[address] [place], [place] [address]Rcliaseeqb68-91-6017 14:36-0400Body .56 kgCorey Davie DO Work Phone: 1(178)000-[address] [place] [address]-21-2025 14:36-0400Diastolic blood nolcrsdm87 mm[Hg]Caesar Davie DO Work Phone: 1(945)532-[address] [place], [place] [address]Btpuinuniy54-72-6040 14:36-0400Systolic blood cwgfzixd104 mm[Hg]Caesar Davie DO Work Phone: 1(189)[facility] [place], [place] [address]Vxsnfmjacx36-10-5425 14:03-0400Diastolic blood pywivnwe94 mm[Hg]Caesar Davie DO Work Phone: 1(231)[facility] [place], [place] [address]Knbfqgxxsd95-34-5457 14:03-0400Systolic blood nxvqymey535 mm[Hg]Caesar Davie DO Work Phone: 1(655)[facility] [place], [place] [address]Jjbsfvwnqd95-14-2127 13:12-0500Body mass index (BMI) [Ratio]40.01 kg/h9Yldzj Davie DO Work Phone: 1(739)[facility] [place], [place] [address]Rozheolmat80-53-3536 13:12-0500Body uflqal120.35 kgCorey Davie DO Work Phone: 1(952)[facility] [place], [place] [address]Cgplxksoth35-36-6658 13:12-0500Diastolic blood uzajylrk59 mm[Hg]Caesar Davie DO Work Phone: 1(354)[facility] [place], [place] [address]Bpunaavlqt48-18-9071 13:12-0500Systolic blood pxfwgutb654 mm[Hg]Caesar Davie DO Work Phone: 1(959)[facility] [place], [place] [address]Xcglpwnewr25-56-5406 14:39-0400Body ezbgon594.7 cmCorey Davie DO Work Phone: 1(493)[facility] [place], [place] [address]Edvhwnsffa34-70-9068 14:39-0400Body mass index (BMI) [Ratio]39.53 kg/f5Ltuuq Davie DO Work Phone: 1(543)[facility] [place], [place] [address]Kkzuhrbinf16-83-7015 14:39-0400Body updlpo882.94 kgCorey Davie DO Work Phone: 1(616)[facility] [place], [place] [address]Krxqmfyidx22-49-6823 14:39-0400Diastolic blood yvtlepri54 mm[Hg]Caesar Davie DO Work Phone: 1(983)[address] [place], [place] 6606410-21-2024 14:39-0400Systolic blood dfxdqbok475 mm[Hg]Caesar Davie DO Work Phone: [facility] HospitalFhcjgjybnb82-35-6220 11:39-0400Body aavrqn310.84 kgCorey Davie DO Work Phone: [facility] HospitalPzalfoqltq01-91-3144 11:39-0400Diastolic blood wunvtkmc55 mm[Hg]Caesar Davie DO Work Phone: [facility] HospitalXnuqevnrng15-13-9189 11:39-0400Systolic blood zsmxuvof384 mm[Hg]Caesar Davie DO Work Phone: 1(110)498-[address] [place], [place] [address]Dfxbojtltg05-72-5130 09:36-0400Body qjytuz200.57 kgCorey Davie DO Work Phone: [facility] HospitalZdwbibivtn50-82-2325 09:36-0400Diastolic blood mm[Hg]Caesar Davie DO Work Phone: 1(568)214-[address] [place], [place] [address]Jdyjxmyydk22-27-6236 09:36-0400Systolic blood fiqglyck626 mm[Hg]Caesar Davie DO Work Phone: 1(139)602-[address] [place], [place] [address]Xckvmeglog30-18-2837 10:50-0400Body ejnyzx920.7 Ji Fraire MD Work Phone: [facility]07-23-2024 10:50-0400Body mass index (BMI) [Ratio]40.66 kg/r7LxtlyoJames Fraire MD Work Phone: 1(834)127-[address] [place], [place] 2412707-23-2024 10:50-0400Body uvkkgo653.29 kgJames Fraire MD Work Phone: [facility]07-23-2024 10:50-0400Diastolic blood mm[Hg]James Fraire MD Work Phone: [facility]07-23-2024 10:50-0400Heart rate 83 /minJames Fraire MD Work Phone: [facility]07-23-2024 10:50-0505LqU8% (BldA) [Mass fraction]98 %James Fraire MD Work Phone: [facility]07-23-2024 10:50-0400Systolic blood xpoyahwr365 mm[Hg]James Fraire MD Work Phone: [facility]04-04-2024 12:26-0400Body dducic637.72 cmOhio[facility]04-04-2024 12:26-0400Body mass index (BMI) [Ratio]42.6 kg/q6KllqkuabqOhiohealth Van Wert Hospital04-04-2024 12:26-0400Body nsqgsqvvmzy40.3 [degF][facility]04-04-2024 12:26-0400Body hjbznu683.11 kgOhiohealth Van [facility] Hospital04-04-2024 12:26-0400Diastolic blood mm[Hg][facility] 11-24-2023 12:26-0400Heart rate75 /[facility] 11-24-2023 12:26-0400Respiratory rate18 /[facility] 11-24-2023 12:26-3251LvQ2% (BldA) [Mass fraction]98 %[facility]04-04-2024 12:26-0400Systolic blood gzyrdhei478 mm[Hg][facility]02-20-2023 11:35-0500Body dfvegn707.72 Glendy Singh Other [employer] Other 02-20-2023 11:35-0500Body mass index (BMI) [Ratio] 42.27 kg/d3AudjtnPinky Singh Other [employer] Other 02-20-2023 11:35-0500Body hvdhclojctp18.8 [degF]Pinky Singh Other [employer] Other 02-20-2023 11:35-0500Body oocvbn645.1 kgPinky Singh Other noCemp[employer] Other 02-20-2023 11:35-0500Respiratory rate18 /minPinky Singh Other [employer] Other 02-20-2023 11:35-0913SoE0% (BldA) [Mass fraction]98 % Pinky Singh Other noC[employer] Other Encounters Encounter DateEncounter TypeCare ProviderFacilityStart: 06-24-2025 End: 16-56-0255Bsdnid flowsheetCorey Davie DO Work Phone: [facility] [place] [facility]BGYNStart: 06-24-2025 End: 32-91-3394Lxcnph flowsheetCorey Davie DO Work Phone: [facility] [place]BGYNStart: 06-24-2025 End: 42-04-1954Dfhqnv outpatient visit 15 minutesCorey Davie DO Work Phone: noms [place] OBGYNComment on above:Second trimester ([facility]); 25 weeks gestation of ([facility]); H/O pre-eclampsia in prior , currently ([facility]); Vitamin D deficiency; Chronic hypertension affecting ([facility]); Diabetes mellitus screeningStart: 06-24-2025 End: 42-32-1166eyoahwehudKQIAO FAZIONot AvailableStart: 06-18-2025 End: 98-25-5889Xvwkrn outpatient visit 25 minutesYordy Cruz MD Work Phone: [phone]-Vfsie [facility] at [facility] Comment on above:Chronic hypertension affecting (Primary Dx); 20 weeks gestation of ; Anxiety disorder affecting , antepartum; Acute palmoplantar pustular psoriasis; Severe obesity due to excess calories affecting , antepartum ([facility]) Start: 06-18-2025 End: 53-01-7590jcrmmgybzjTIN [facility] HospitalStart: 06-18-2025 End: 59-79-9690vjkvqsxhfcEDSIS [facility] HospitalStart: 06-05-2025 End: 46-23-2301Geyrlc flowsMark Qiu [employer] Work Phone: [facility]BGYNStart: 06-05-2025 End: 86-89-5179Nwnqnm flowsMark Qiu [employer]ER Work Phone: [facility]BGYNStart: 06-05-2025 End: 07-77-5688Xdfwvsis flow Karel Qiu [employer] Work Phone: N[facility] OBGYNComment on above:Second trimester ([facility] 23 weeks gestation of ([facility])Start: 06-05-2025 End: 77-21-4159dvsgsmuzctVFWUFHES UYENNot AvailableStart: 05-30-2025 End: 31-15-8868Wievwhzi flow Karel Qiu [employer] Work Phone: N[facility] [place] OBGYNComment on above:Chronic hypertension affecting ([facility]) (Primary Dx); Second trimester ([facility]); 22 weeks gestation of ([facility])Start: 05-30-2025 End: 32-85-6033vxvqubeerfSBSAKAJL UYENNot AvailableStart: 05-30-2025 End: 70-58-6219Grouqo flowsMark Qiu [employer] Work Phone: N[facility] OBGYNStart: 05-30-2025 End: 26-41-1929Rfvzjm flowsMark Qiu [employer] Work Phone: [facility] [place] [facility]BGYNStart: 05-24-2025 End: 67-35-7284Lnxycc OnlyAmy Nikkie LPNMaternal- Medicine at [facility]ighComment on above:Acute palmoplantar pustular psoriasis (Primary Dx); Chronic hypertension affecting ; Severe obesity due to excess calories affecting , antepartum ([facility]); Hypertension affecting in second trimesterStart: 05-23-2025 End: 08-03-1091eclxeyqoncALXEWRBE EBERLYNot AvailableStart: 05-23-2025 End: 81-98-9642Oonkwkha flow Karel Qiu NP Work Phone: NOGN [facility] OBGYNComment on above:Second trimester ([facility] 21 weeks gestation of ([facility]); induced hypertension, antepartum ([facility]); Vitamin D deficiency; H/O pre-eclampsia in prior , currently ([facility])Start: 05-23-2025 End: 34-53-4742Brqabh Jennyfer Qiu NP Work Phone: [facility] [place] [facility]BGYNStart: 05-23-2025 End: 00-19-5885Lgbnqz Jennyfer Qiu NP Work Phone: [facility] [place] [facility]BGYNStart: 05-23-2025 End: 39-05-3269Qbmttkrte Result EncounterCorey Davie DO Work Phone: noms External Department UnsolicitedStart: 05-17-2025 End: 58-09-0495Jmswrp consultation new/estab patient 60 Hannah Hare MD Work Phone: [phone]-Znkoa Medicine at [facility] Comment on above:Chronic hypertension affecting (Primary Dx); Acute palmoplantar pustular psoriasis; Severe obesity due to excess calories affecting , antepartum ([facility]); 20 weeks gestation of pregnancyStart: 05-17-2025 End: 92-07-2247Ahpsth OnlyAmy Nikkie LPNMaternal- Medicine at [facility]ighComment on above:Acute palmoplantar pustular psoriasis (Primary Dx); Chronic hypertension affecting ; Severe obesity due to excess calories affecting , antepartum ([facility]); Hypertension affecting in second trimesterStart: 04-29-2025 End: 23-75-2843Bkhosjytj department patient visitCOMMUNCOMMUNITY REGIONAL [facility] Hospitaltart: 04-25-2025 End: 33-04-0385Xxbmjj flowsheetCorey Davie DO Work Phone: noMS [place] OBGYNStart: 04-25-2025 End: 89-78-2469Yzshsy flowsheetCorey Davie DO Work Phone: noMS [place] [facility]BGYNStart: 04-25-2025 End: 32-47-3507Lhqlwy outpatient visit 15 minutesCorey Davie DO Work Phone: noms [facility] OBGYNComment on above:Screening, , for anatomic survey ([facility]); Second trimester ([facility]); 17 weeks gestation of ([facility]); Screen for STD (sexually transmitted disease); Need for maternal serum alpha-protein (MSAFP) screening ([facility]); induced hypertension, antepartum ([facility]); Vitamin D deficiencyStart: 04-25-2025 End: 42-31-5783naqkcemgnkBULXG FAZIONot AvailableStart: 04-23-2025 End: 41-42-8279Uubvo Caroline Cruz MD Work Phone: [phone]-Boixt Medicine at [facility] Start: 04-21-2025 End: 02-29-2660Nummnvbmi Result EncounterCorey Davie DO Work Phone: noms External Department UnsolicitedStart: 04-21-2025 End: 57-22-4185Kowrcytuy Result EncounterCorey Davie DO Work Phone: noms External Department UnsolicitedStart: 04-19-2025 End: 33-52-7875YngpssBettina Moise RNMaternal- Medicine at [facility]ighComment on above:Hypertension affecting in second trimester (Primary Dx)Start: 04-17-2025 End: 77-65-2348Bpbvxcknm Result EncounterCorey Davie DO Work Phone: noms External Department UnsolicitedStart: 04-17-2025 End: 74-41-5754Pfjrdrsyf Result EncounterCorey Davie DO Work Phone: no External Department UnsolicitedStart: 04-11-2025 End: 28-82-5324Ngynty flowsheetCorey Davie DO Work Phone: [facility] [place] OBGYNStart: 04-11-2025 End: 92-91-2986Uigbaq flowsheetCorey Davie DO Work Phone: NO [place] [facility]BGYNStart: 04-11-2025 End: 20-56-5200Yakept outpatient visit 15 minutesCorey Davie DO Work Phone: NOM[facility] [place] OBGYNComment on above:15 weeks gestation of ([facility]); Second trimester ([facility]); Acute nonintractable headache, unspecified headache type; BP check; Gestational hypertension, antepartum ([facility]); induced hypertension, antepartum ([facility])Start: 04-11-2025 End: 39-57-4135Zktmxsw encounter statusCorey Davie DO Work Phone: NO HealthcareStart: 04-11-2025 End: 69-08-1856kzhphpkzsoMWRBX FAZIONot AvailableStart: 03-28-2025 End: 19-13-6372Yovuxb flowsheetCorey Davie DO Work Phone: NO [facility]BGYNStart: 03-28-2025 End: 07-74-4349Bnetbc flowsheetCorey Davie DO Work Phone: no [place] [facility]BGYNStart: 03-28-2025 End: 75-37-5804Mqieay outpatient visit 15 minutesCorey Davie DO Work Phone: [facility] [place] OBGYNComment on above:13 weeks gestation of ([facility]); Second trimester ([facility]); Acute nonintractable headache, unspecified headache typeStart: 03-28-2025 End: 90-66-0714twoyvbfquuHXXZP FAZIONot AvailableStart: 03-20-2025 End: 95-12-3533Jjwxvtasq Result EncounterCorey Davie DO Work Phone: noms External Department UnsolicitedStart: 03-20-2025 End: 58-29-6493Avgtynmqf Result EncounterCorey Davie DO Work Phone: noms External Department UnsolicitedStart: 03-01-2025 End: 87-74-2737Enhpnw outpatient visit 5 minutesFazio Nurse Noms Bcp ObNOMS BCP OBStart: 03-01-2025 End: 26-54-1507ygrbxmfppcELXJC FAZIONot AvailableStart: 01-16-2025 End: 63-47-7438Yicohntdn Result EncounterCorey Davie DO Work Phone: [facility] External Department UnsolicitedStart: 01-16-2025 End: 10-55-3755Dmjaoquon Result EncounterCorey Davie DO Work Phone: n[facility] External Department UnsolicitedStart: 01-03-2025 End: 54-94-2341Jidnggx encounter procedureRobbie Lopez MD Work Phone: Steve JaneComment on above:Encounter for preprocedural laboratory examination (Primary Dx); Abnormal uterine bleedingStart: 01-03-2025 End: 47-65-5461Hotvlos encounter statusRobbie Lopez MD Work Phone: [facility] Work Phone: Start: 01-03-2025 End: 94-53-3285akqoomvvvgNIHEWZ S [facility]: 01-03-2025 End: 70-78-9496Qjyxrbfzg for preprocedural laboratory examinationROBBIE Tapia [facility]: 12-18-2024 End: 03-33-8885Gpnmujrl Result EncounterCorey Davie DO Work Phone: [facility] External Department UnsolicitedStart: 12-18-2024 End: 43-69-7444Gtlfwbqf Result EncounterCorey Davie DO Work Phone: noMS External Department UnsolicitedStart: 12-18-2024 End: 60-38-8210Txtzacp encounter procedureCorey Davie DO Work Phone: n[facility] BCP OBComment on above:Skin moleStart: 12-18-2024 End: 43-07-9120byztyladyeKqoxe FazioFiTriHealth [facility] Work Phone: Start: 12-18-2024 End: 25-26-6543Ywrbnqsw ReferredCorey Davie DO Work Phone: [facility] Path Spec [facility] HospStart: 12-17-2024 End: 92-77-3340Ddldgujsp Result EncounterCorey Davie DO Work Phone: [facility] External Department UnsolicitedStart: 12-17-2024 End: 14-67-0741Bpnzjjhif Result EncounterCorey Davie DO Work Phone: n[facility] External Department UnsolicitedStart: 12-10-2024 End: 62-17-8452Qmivhcu encounter procedureCorey Davie DO Work Phone: noms HealthcareStart: 12-10-2024 End: 56-23-1755Rzqpfafk preventive med est patient 18-39 yrsCorey Davie DO Work Phone: NOMS BCP OBComment on above:Well woman exam with routine gynecological examStart: 12-10-2024 End: 32-14-7041eaoidesaxxZZMBJ FAZIONot AvailableStart: 12-10-2024 End: 77-44-3110Xbiviw flowsheetCorey Davie DO Work Phone: [facility] BCP OBStart: 12-10-2024 End: 95-53-6862Tnejsh flowsheetCorey Davie DO Work Phone: [facility] BCP OBStart: 12-10-2024 End: 39-89-9926Nhzhnrrse Result EncounterCorey Davie DO Work Phone: noms External Department UnsolicitedStart: 11-16-2024 End: 12-04-4893Zxpfshiwi Result EncounterCorey Davie DO Work Phone: noms External Department UnsolicitedStart: 11-16-2024 End: 07-92-6365Tjwqhsxxn Result EncounterCorey Davie DO Work Phone: NOMS External Department UnsolicitedStart: 11-12-2024 End: 60-42-4948Yufykr outpatient visit 15 minutesCorey Davie DO Work Phone: noMS [facility] OBComment on above:Encounter for fertility planning; Acute cystitis without hematuria; PCOS (polycystic ovarian syndrome); Fallopian tube disorderStart: 11-12-2024 End: 55-65-5345Pkaodp flowsheetCorey Davie DO Work Phone: [facility] BCP OBStart: 11-12-2024 End: 34-37-5247Qfribf flowsheetCorey Davie DO Work Phone: noms [facility] OBStart: 11-12-2024 End: 77-65-2353jlahuxjnbdQSBMX FAZIONot AvailableStart: 11-03-2024 End: 40-22-3424Lwnubdxfp department patient visitCOMMUNCOMMUNITY REGION[facility] HospitalStart: 10-18-2024 End: 43-25-5006Yfofjodve Result EncounterCorey Davie DO Work Phone: noms External Department UnsolicitedStart: 10-18-2024 End: 14-67-5858Fgukealtc Result EncounterCorey Davie DO Work Phone: noms External Department UnsolicitedStart: 09-17-2024 End: 01-29-5396Opmytqiqy Result EncounterCorey Davie DO Work Phone: noms External Department UnsolicitedStart: 09-17-2024 End: 80-21-7194Ygbdpxnla Result EncounterCorey Davie DO Work Phone: noms External Department UnsolicitedStart: 08-16-2024 End: 46-88-2071Ywbxrhysc Result EncounterCorey Davie DO Work Phone: noms External Department UnsolicitedStart: 08-16-2024 End: 30-35-1060Uvjgbsixu Result EncounterCorey Davie DO Work Phone: noms External Department UnsolicitedStart: 07-23-2024 End: 73-96-8395Jpvpgx flowsheetCorey Davie DO Work Phone: noms BCP OBStart: 07-23-2024 End: 69-05-5164Evitfd flowsheetCorey Davie DO Work Phone: NOZW BCP OBStart: 07-23-2024 End: 68-34-5974djdwvshfstUAWGA FAZIONot AvailableStart: 07-23-2024 End: 04-27-6417Kxgifq outpatient visit 15 minutesCorey Davie DO Work Phone: noms [facility] OBComment on above:PCOS (polycystic ovarian syndrome); Encounter for fertility planningStart: 07-18-2024 End: 86-10-9390Qxjigkfru Result EncounterCorey Davie DO Work Phone: noms External Department UnsolicitedStart: 07-18-2024 End: 09-57-7864Njgjztkgl Result EncounterCorey Davie DO Work Phone: NOKC External Department UnsolicitedStart: 06-11-2024 End: 10-23-9326Xrnywl follow up visit related to original pxCorey Davie DO Work Phone: NOBC [facility] OBComment on above:Postoperative visit; S/P laparoscopic procedureStart: 06-11-2024 End: 45-50-5110Rvoxan flowsheetCorey Davie DO Work Phone: noms BCP OBStart: 06-11-2024 End: 45-50-6853Dxqdev flowsheetCorey Davie DO Work Phone: NOOP BCP OBStart: 06-01-2024 End: 07-91-9081Funvgkgpt Result EncounterCorey Davie DO Work Phone: NORF External Department UnsolicitedStart: 06-01-2024 End: 11-22-1030Lxjpgrxqk Result EncounterCorey Davie DO Work Phone: NOMS External Department UnsolicitedStart: 05-03-2024 End: 23-98-8500Mykilv outpatient visit 15 minutesCorey Davie DO Work Phone: NOBW [facility] OBComment on above:Pre-op examination; Pelvic pain in female; Fallopian tube disorderStart: 05-03-2024 End: 89-12-5214Tlplnldxhstvr examination doneCorey Davie DO Work Phone: NOMS HealthcareStart: 04-25-2024 End: 96-69-0199Arahfbtrx Result EncounterCorey Davie DO Work Phone: noms External Department UnsolicitedStart: 04-25-2024 End: 95-70-3137Qrjdgehfd Result EncounterCorey Davie DO Work Phone: NORF External Department UnsolicitedStart: 04-24-2024 End: 91-99-3496Kaibmcstc Result EncounterCorey Davie DO Work Phone: noms External Department UnsolicitedStart: 04-24-2024 End: 66-65-8095Jpuyfmmvt Result EncounterCorey Davie DO Work Phone: NOYV External Department UnsolicitedStart: 04-10-2024 End: 44-98-6622Wddgbe flowsheetCorey Davie DO Work Phone: [facility] BCP OBStart: 04-10-2024 End: 25-38-5623Realdw flowsheetCorey Davie DO Work Phone: [facility] BCP OBStart: 04-10-2024 End: 82-12-2253Zdkaot outpatient visit 15 minutesCorey Davie DO Work Phone: [facility] OBComment on above:Encounter for fertility planning; PCOS (polycystic ovarian syndrome); Pelvic pain in female; Abnormal uterine bleeding (AUB)Start: 03-13-2024 End: 68-48-9779Mvbvhm outpatient visit 15 minutesJames Fraire MD Work Phone: [facility] CardiologyComment on above:Heart palpitations (Primary Dx)Start: 03-12-2024 End: 74-08-7473Tpnnxfwer encounterJennshayne Powell [facility]ITALProMedica Physicians CardiologyStart: 02-22-2024 End: 45-70-6903Mnjzw abstractingScanning Provider ExternalProMedica Physicians CardiologyStart: 11-24-2023 End: 19-32-4894ewwjzghfnxTowhagvcq [facility] Work Phone: Start: 11-24-2023 End: 42-56-1051Wbxbihk encounter procedureAtrium Health [facility] Work Phone: Start: 10-11-2022 End: 65-38-0005xstzfnfnpuXaulny Dymond Other [facility] [employer] Other Start: 27-67-5460Onpokn outpatient new 20 minutes Pinky SinghFPG [facility] Procedures DateProcedureProcedure DetailPerforming ClinicianStart: 65-14-3144Qealq dip stick/tablet rgnt non-auto w/o micrscpCorey Davie DO Work Phone: Start: 17-74-9501Iqfaw dip stick/tablet rgnt non-auto w/o micrscpKristina Uyen [employer] Work Phone: Start: 01-48-8979Heagy dip stick/tablet rgnt non-auto w/o micrscpKristina Uyen [employer] Work Phone: Start: 77-28-9100ROD, SERUM, OPEN SPINA BIFIDACorey Davie DO Work Phone: Start: 86-60-9344Ifsbk dip stick/tablet rgnt non-auto w/o micrscpCorey Davie DO Work Phone: Start: 44-60-1741GOF TOTAL PROTEIN 24 HOUR URINECorey Davie DO Work Phone: Start: 52-37-9665Vfkqc count complete automatedNot In System Ref ProvStart: 82-66-2710LEE CBC WITH AUTO DIFFCorey Davie DO Work Phone: Start: 22-17-2733Pypbj dip stick/tablet rgnt non-auto w/o micrscpCorey Davie DO Work Phone: Start: 82-18-1317Togpy dip stick/tablet rgnt non-auto w/o micrscpCorey Davie DO Work Phone: Start: 74-06-5726Whdhpnua Cathi Cruz MD Work Phone: Start: 12-46-5208Jqwv scrn 1+ class nonchromoNot In System Ref ProvStart: 63-19-5151Wscjleykyn glycosylated c7pObxndekh Provider ExternalStart: 00-19-3746Aumohoyze c antibodyNot In System Ref ProvStart: 48-94-4835BPE 1&2 AB/AG SCREEN (P24 AG)Not In System Ref ProvStart: 03-20-2025 Iaad ia hepatitis b surface antigenNot In System Ref ProvStart: 03-20-2025 SYPHILIS TOTAL(UNKNOWN SYPHILIS STATUS)Not In System Ref ProvStart: 03-20-2025 TYPE AND SCREENNot In System Ref ProvStart: 33-88-3941VOW CBC WITH AUTO DIFF Caesar Davie DO Work Phone: Start: 03-01-2025 End: 72-21-2069Brvvc dip stick/tablet rgnt non-auto w/o micrscpCorey Davie DO Work Phone: Start: 13-94-2726CWO PROGESTERONECorey Davie DO Work Phone: Start: 57-71-8847MBUOVVDMP REQUEST FOR LAB CORPCorey Davie DO Work Phone: Start: 79-73-0209ORQ PROGESTERONECorey Davie DO Work Phone: Start: 37-99-4868PIT,APTIMA HPV,AGE GDLNCorey [facility] [employer] DO Work Phone: Start: 28-42-9211Nubckpfoggc observation [Identifier] in Cervix by Cyto stainCorey Davie DO Work Phone: Start: 56-18-3610SEV PROGESTERONECorey Davie DO Work Phone: Start: 06-50-2578QYA PROGESTERONECorey [facility] [employer] DO Work Phone: Start: 37-62-5308DPW PROGESTERONECorey Davie DO Work Phone: Start: 53-45-1961SOD PROGESTERONECorey Davie DO Work Phone: Start: 93-48-5363ATL PROGESTERONECorey Davie DO Work Phone: Start: 88-35-6282LAV CBC WITH AUTO DIFFCorey [facility] [employer] DO Work Phone: Start: 51-15-9959HH PELVIS W/ TRANSVAGINALCorey Davie DO Work Phone: Start: 04-07-9509HXH CBC WITH AUTO DIFFCorey [facility] [employer] DO Work Phone: Start: 63-15-3360Mzg routine ecg w/least 12 lds w/i&r James Fraire MD Work Phone: Start: 40-91-1351Ggxvm Strep (POC)Start: 11-23-2022 Microscopic observation [Identifier] in Cervix by Cyto stainScanning External Start: 61-82-6018Kldjqtpsugn observation [Identifier] in Cervix by Cyto stain Caesar [facility] [employer] DO Work Phone: Start: 51-03-0580Trsf cerv/vag auto thin layer prep mnl screenAmy Zackary POWER ORIGINATOR Work Phone: Plan of Treatment DateCare ActivityDetailAuthorStart: 19-84-1566Ofghon Vaccines (1 of 2)Zoster Vaccines (1 of 2)[facility] CenterStart: 03-43-3632Ynahbpmjd for malignant neoplasm of cervixNOMS HealthcareStart: 32-96-9252Teiisshsb for malignant neoplasm of cervixNOMS HealthcareStart: 59-94-3478Lpndl BMI Screening Adult BMI ScreeningAdena Regional Medical Center SystemStart: 24-15-2421Ffpwfxm Screening Tobacco ScreeningOur Community Hospitaltart: 12-16-2025 End: 47-83-0939Svrnnar encounter procedureNOMS BCP OBStart: 89-74-0644Mhnypqeyv for malignant neoplasm of cervixPap SmearAdena Regional Medical Center SystemStart: 17-27-9566Hrycacfvl for malignant neoplasm of cervixPap SmearNOVA Healthcare Start: 92-93-7644Dogiapy ScreeningTobacco ScreeningAdena Regional Medical Center SystemStart: 07-09-2025 End: 27-28-0085Fuzidie encounter vsfdcymjn43/18/2025 1:20 PM EST Routine LIANA HEAD [address] [place], [id number] Bethany Simon PA [address] [place] [address] LIANA LAWSONGYNStart: 06-24-2025 End: 30-84-7278CRG panel - Blood by Automated countCBC Lab Routine Diabetes mellitus screening Expected: 06/24/2025 (Approximate), Expires: 06/[facility]/2026[facility] Work Phone: comment on above:Expected: 06/24/2025 (Approximate), Expires: 06/24/2026Start: 06-24-2025 End: 11-59-6540Snjeysclxlz of glucose 1 hour after glucose challenge for glucose tolerance testGlucose tolerance, 1 hour Lab Routine Diabetes mellitus screening Expected: 06/24/2025 (Approximate), Expires: 06/24/2026NOVA HealthcareComment on above:Expected: 06/24/2025 (Approximate), Expires: 06/24/2026Start: 06-24-2025 End: 89-72-4156XC biophysical profile w non stress testUS biophysical profile w non stress test Imaging Routine 25 weeks gestation of ([facility]) H/O pre-eclampsia in prior , currently ([facility]) Chronic hypertension affecting ([facility]) Expected: 06/24/2025 (Approximate), Expires: 12/22/2025NOMS HealthcareComment on above: Expected: 06/24/2025 (Approximate), Expires: 12/22/2025Start: 06-24-2025 End: 02-46-1403ZJ for pregnancyUS OB follow up transabdominal approach Imaging Routine H/O pre-eclampsia in prior , currently ([facility]) Chronic hypertension affecting ([facility]) Expected: 06/24/2025, Expi res: 10/22/2025N[facility] HealthcareComment on above:Expected: 06/24/2025, Expires: 10/22/2025Start: 06-24-2025 End: 78-89-7127Fvtbipj encounter procedureNOMS Aman OBGYNComment on above: ArrivedStart: 06-18-2025 End: 63-72-4441Bunympeckrsn consultation with hqlngut7406/18/2025 2:00 PM EDT Telemedicine Maternal- Medicine at [facility] [address] [place] [address] Yordy Cruz MD [address] [place] [address] [facility] 06-18-2025 End: 50-96-0053Nbzwvwl encounter /28/2025 8:00 AM EDT Appointment [facility] - Ultrasound [address] [place] [address] [phone] [facility] - UltrasoundStart: 06-05-2025 End: 31-88-1873Sqlubmf encounter procedureNOMS [place] OBGYNComment on above: ArrivedStart: 05-30-2025 End: 11-36-0502Rdczkkh encounter procedureNOMS Aman OBGYNComment on above: ArrivedStart: 05-25-2025 End: 20-16-7089Cnsmu fetoprotein, maternalAlpha fetoprotein, maternal Lab Routine Need for maternal serum alpha-protein (MSAFP) screening ([facility]) Expected: 05/25/2025 (Approximate), Expires: 05/25/2025NOMS HealthcareComment on above:Expected: 05/25/2025 (Approximate), Expires: 05/25/2025Start: 05-23-2025 End: 82-26-4693Sobrspt encounter kyhexevjy61/02/2025 2:30 PM EDT Routine LIANA HEAD [address] [place], [id number] Rody Qiu, [employer]ER [address] [place] [phone] LIANA LAWSONGYNStart: 05-20-2025 End: 51-31-2667XJ MFM with or without consultUS MFM with or without consult Imaging Routine Hypertension affecting in second trimesterExpected: 05/20/2025 (Approximate), Expires: 04/19/2026[facility] Work Phone: comment on above:Expected: 05/20/2025 (Approximate), Expires: 04/19/2026Start: 05-17-2025 End: 31-44-0566KL MFM with or without consultUS MFM with or without consult Imaging Routine 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 Severe obesity due to excess calories affecting , antepartum ([facility]) Hypertension affecting in second trimester Expected: 05/17/2025, Expires: 05/17/2026[facility] Work Phone: Comment on above:Expected: 05/17/2025, Expires: 05/17/2026Start: 05-17-2025 End: 95-96-1802Ojwcplt encounter procedureProOhiohealth [facility] US ImagingStart: 04-25-2025 End: 29-04-4805Yagzjmz encounter procedureNOCape Regional Medical Center OBGYNComment on above: ArrivedStart: 84-92-7613LQZGV-19 Vaccine ( season)COVID-19 Vaccine ()NOMS HealthcareStart: 00-92-3407Ulwfgacqz vaccinationNOMS HealthcareStart: 04-11-2025 End: 25-20-1029Xmhrhsx aminotransferase [Enzymatic activity/volume] in Serum or PlasmaALT Lab Routine Gestational hypertension, antepartum ([facility]) induced hypertension, antepartum ([facility]) Expected: 04/11/2025 (Approximate), Expires: 04/11/2026N[facility] HealthcareComment on above:Expected: 04/11/2025 (Approximate), Expires: 04/11/2026Start: 04-11-2025 End: 39-60-5032Ujxruvcjl aminotransferase [Enzymatic activity/volume] in Serum or PlasmaAST Lab Routine Gestational hypertension, antepartum ([facility]-HCC) induced hypertension, antepartum ([facility]-HCC) Expected: 04/11/2025 (Approximate), Expires: 04/11/2026N[facility] HealthcareComment on above:Expected: 04/11/2025 (Approximate), Expires: 04/11/2026Start: 04-11-2025 End: 26-51-2584KOB W Auto Differential panel - BloodCBC and differential Lab Routine Gestational hypertension, antepartum ([facility]-HCC) induced hy pertension, antepartum ([facility]-HCC) Expected: 04/11/2025 (Approximate), Expires: 04/11/2026[facility] HealthcareComment on above:Expected: 04/11/2025 (Approximate), Expires: 04/11/2026Start: 04-11-2025 End: 02-72-9282Mbvaekbjpi [Mass/volume] in Serum or PlasmaCreatinine Lab Routine Gestational hypertension, antepartum ([facility]HS-HCC) induced hypertension, antepartum ([facility]HS-HCC) Expected: 04/11/2025 (Approximate), Expires: 04/11/2026[facility] [employer] Work Phone: comment on above:Expected: 04/11/2025 (Approximate), Expires: 04/11/2026Start: 04-11-2025 End: 78-86-5892Sektwkj dehydrogenase [Enzymatic activity/volume] in Serum or Plasma by Lactate to pyruvate reactionLactate dehydrogenase Lab Routine Gestational hypertension, antepartum ([facility]HS-HCC) induced hypertension, antepartum ([facility]-HCC) Expected: 04/11/2025, Expires: 04/11/2026[facility] Comment on above:Expected: 04/11/2025, Expires: 04/11/2026Start: 04-11-2025 End: 08-33-5462Czkczbq, urine, 24 hourProtein, urine, 24 hour Lab Routine Gestational hypertension, antepartum (HHS-HCC) induced hypertension, antepartum ([facility]HS-HCC) Expected: 04/11/2025 (Approximate), Expires: 04/11/2026[facility] HealthcareComment on above:Expected: 04/11/2025 (Approximate), Expires: 04/11/2026Start: 04-11-2025 End: 26-73-6655Sn and pttPt and ptt Lab Routine Gestational hypertension, antepartum (HHS-HCC) induced hypertension, antepartum ([facility]HS-HCC) Expected: 04/11/2025, Expires: 04/11/2026[facility] HealthcareComment on above: Expected: 04/11/2025, Expires: 04/11/2026Start: 04-11-2025 End: 53-89-8084Fqpzg [Mass/volume] in Serum or PlasmaUric acid Lab Routine Gestational hypertension, antepartum (HHS-HCC) induced hypertension, antepartum ([facility]HS-HCC) Expected: 04/11/2025 (Approximate), Expires: 04/11/2026[facility] HealthcareComment on above:Expected: 04/11/2025 (Approximate), Expires: 04/11/2026Start: 04-11-2025 End: 73-51-6792Wuim nitrogen [Mass/volume] in Serum or PlasmaBUN Lab Routine Gestational hypertension, antepartum ([facility]HS-HCC) induced hypertension, antepartum ([facility]) Expected: 04/11/2025, Expires: 04/11/2026[facility] Healthcare Comment on above:Expected: 04/11/2025, Expires: 04/11/2026Start: 04-11-2025 End: 16-47-2811Ctgxnsn encounter procedureNOMS Aman OBGYNComment on above: ArrivedStart: 03-28-2025 End: 45-82-0933Kfltild encounter procedureNOMS BCP OBComment on above:Arrived Start: 93-19-2510Zfwni BMI ScreeningAdult BMI ScreeningAdena Regional Medical Center System Start: 88-92-4954Lzcqmaq ScreeningTobacco ScreeningOur Community Hospitaltart: 03-01-2025 End: 71-15-3056UJI/RhABO/Rh Lab Routine Missed menses , unspecified gestational age ([facility]) Expected: 03/01/2025 (Approximate), Expires: 03/01/2026[facility] HealthcareComment on above:Expected: 03/01/2025 (Approximate), Expires: 03/01/2026Start: 03-01-2025 End: 46-58-0115Hjftk type and Indirect antibody screen panel - BloodType and screen Lab Routine Missed menses , unspecified gestational age ([facility]) Expected: 03/01/2025 (Approximate), Expires: 03/01/2026[facility] Healthcare Work Phone: comment on above:Expected: 03/01/2025 (Approximate), Expires: 03/01/2026Start: 03-01-2025 End: 41-55-2998Pfgik of abuse panel - Urine by Screen methodRapid drug screen, urine Lab Routine , unspecified gestational age ([facility]) Encounter for supervision of normal first in first trimester ([facility]) Expected: 03/01/2025 (Approximate), Expires: 03/01/2026[facility] HealthcareComment on above: Expected: 03/01/2025 (Approximate), Expires: 03/01/2026Start: 02-03-2025 End: 91-87-5957Fwlkykvrrfmagpbcnb ( test) [Presence] in UrinePOCT , urine manually resulted Point of Care Testing Routine Encounter for preprocedural laboratory examination Expected: 02/03/2025 (Approximate), Expires: 04/05/2025[facility] Work Phone: Comment on above:Expected: 02/03/2025 (Approximate), Expires: 04/05/2025Start: 02-03-2025 End: 65-34-0689JhmwlthiwsujziwAcovxymudxhtkpm Procedures Routine Abnormal uterine bleeding Expected: 02/03/2025 (Approximate), Expires: 01/03/2026[facility] Service Area Work Phone: Comment on above:Expected: 02/03/2025 (Approximate), Expires: 01/03/2026Start: 02-03-2025 End: 00-39-8059XC.doppler Uterus and Fallopian tubes W saline IUUS sonohysterogram Imaging Routine Abnormal uterine bleeding Expected: 02/03/2025 (Approximate), Expires: 01/03/2026[facility] Work Phone: Comment on above:Expected: 02/03/2025 (Approximate), Expires: 01/03/2026Start: 12-18-2024 End: 14-12-6610Yvahvtt encounter qdirgkixw18/29/2025 1:30 PM EDT Procedure Visit [facility] [address] [place] [phone] Caesar Broderick, DO [address] [place] [address] [facility] BCP OBStart: 46-57-3688KkmfyoqnfWooster Community Hospitaltart: 12-10-2024 End: 01-16-8135Siqpsdq encounter procedureNOMS BCP OBComment on above:Arrived Start: 11-12-2024 End: 90-19-9518Hjvdcyx encounter procedureNOMS BCP OBComment on above:Arrived Start: 07-23-2024 End: 18-51-5817Ljqisbu encounter rwvczvkxu45/02/2024 1:00 PM EST Office Visit [facility] [address] [place] [address] Caesar Broderick, DO [address] [place] [address] [place] [address] [facility] BCP OBStart: 06-11-2024 End: 83-26-8979Zoetkmd encounter /21/2024 2:20 PM EDT Office Visit [facility] [address] [place] [address] Caesar Broderick, DO [address] [place] [address] [place] [address] ArrivedNOMS BCP OBComment on above:ArrivedStart: 06-01-2024 End: 88-91-9964Rgmnapg encounter tvtwwtgoh73/11/2024 8:30 AM EDT Procedure Visit [facility] EXT DEP Caesar Broderick, DO [address] [place] [address] [place] [address] NOMS EXT DEPStart: 05-03-2024 End: 71-46-8097Euorbrn encounter tsjutlksy94/12/2024 11:40 AM EDT Consult [facility] [address] [place] [address] Caesar Broderick, DO [address] [place] [address] [place] [address] NOMS BCP OBStart: 98-61-1949KYDCF-19 Vaccine ( season)COVID-19 Vaccine ( season)[facility] Start: 52-37-5336Estegslye vaccinationNOVA HealthcareStart: 04-10-2024 End: 96-65-0921Zfcbjjcqaymsw hormone (AMH)Antimullerian hormone (AMH) Lab Routine PCOS (polycystic ovarian syndrome) Expected: 04/10/2024 (Approximate), Expires: 04/10/2025NOMS HealthcareComment on above:Expected: 04/10/2024 (Approximate), Expires: 04/10/2025Start: 04-10-2024 End: 15-31-1570MDCCANVV Lab Routine PCOS (polycystic ovarian syndrome) Expected: 04/10/2024 (Approximate), Expires: 04/10/2025NOMS HealthcareComment on above: Expected: 04/10/2024 (Approximate), Expires: 04/10/2025Start: 04-10-2024 End: 35-01-5526RA for pregnancyUS PELVIS-TRANSVAG IF INDICATED Imaging Routine PCOS (polycystic ovarian syndrome) Pelvic pain in female Expected: 04/10/2024 (Approximate), Expires: 04/10/2025NO HealthcareComment on above:Expected: 04/10/2024 (Approximate), Expires: 04/10/2025Start: 04-10-2024 End: 98-09-3874Raypusd encounter tlwijtgzt86/20/2024 9:10 AM EDT Office Visit [facility] OB [address] [place] [address] Caesar Broderick, [address] [place] [address] [facility] OBComment on above:ArrivedStart: 03-13-2024 End: 03-88-6530Phyemck encounter hbdwjvmgu96/23/2024 11:00 AM EDT Office Visit [facility] [address] [place] [address] James Fraire MD [address] [facility] [place], [id number] [facility] CardiologyStart: 46-96-1564Fpmst BMI ScreeningAdult BMI ScreeningProMercy Health Anderson Hospitalca Health SystemStart: 47-43-7779Jpuziav ScreeningTobacco ScreeningProMercy Health Anderson Hospitalca [facility] SystemStart: 98-06-7458EXH Vaccines (1 - 3-dose SCDM series)HPV Vaccines (1 - 3-dose SCDM series)[facility]Start: 36-19-7073COsQ/Tdap/Td Vaccines (1 - Tdap)DTaP/Tdap/Td Vaccines (1 - Tdap)[facility]: 44-62-3762Unvnibcpq for malignant neoplasm of cervixHPV/CotestUnMount Carmel Health System: 16-43-5234GYyQ,Tdap and Td Vaccines (1 - Tdap) DTaP,Tdap and Td Vaccines (1 - Tdap)[facility] SystemStart: 2011 Hepatitis B Vaccines (1 of 3 - 19+ 3-dose series)Hepatitis B Vaccines (1 of 3 - 19+ 3-dose series)[facility]: 29-29-9551Rsmxk BMI Follow Up PlanAdult BMI Follow Up PlanOur Community Hospitaltart: 2010 Hepatitis C screeningHepatitis C ScreeningFirelands Regional Medical Center Start: 31-08-6661Dxkzhzc of varicella vaccinationVaricella Vaccines (1 of 2 - 13+ 2-dose series)[facility] HealthcareStart: 21-41-7026Rwfsrkytv vaccinationVaricella Vaccines (1 of 2 - 13+ 2-dose series)[facility]: 21-48-4904Zgpebiokmi ScreeningDepression ScreeningProVeterans Health Administrationtart: 12-54-5069JZcM/Tdap/Td Vaccines (1 - Tdap)DTaP/Tdap/Td Vaccines (1 - Tdap)[facility] HospitalStart: 73-70-5246DDK Vaccines (1 of 1 - Standard series)MMR Vaccines (1 of 1 - Standard series)[facility]: 80-75-2821MGT screeningHIV ScreeningUnMount Carmel Health System: 20-79-1021Ikqkd panelLipid PanelSt. Mary's Medical Center: 84-52-0554Dukzmi Adult PhysicalYearly Adult PhysicalUnPaulding County HospitalBacteria identified in Urine by CultureUrine culture Microbiology Routine Missed menses Ordered: 03/01/2025[facility] HealthcareComment on above:Ordered: 5CBC W Auto Differential panel - BloodCBC and differential Lab Routine PCOS (polycystic ovarian syndrome) Ordered: 04/10/2024[facility] HealthcareComment on above:Ordered: 04/10/2024BC W Auto Differential panel - BloodCBC and differential Lab Routine Missed menses , unspecified gestational age ([facility]) Ordered: 03/01/2025[facility] HealthcareComment on above:Ordered: 03/01/2025HLAMYDIA TRACHOMATIS (GENITO/STI)CHLAMYDIA TRACHOMATIS (GENITO/STI) Lab Routine Screen for STD (sexually transmitted disease) Ordered: 04/25/2025[facility] HealthcareComment on above:Ordered: 04/25/2025 End: 21-84-6055Nkysdyfurr, urine, 24 hourCreatinine, urine, 24 hour Lab Routine Chronic hypertension affecting 20 weeks gestation of 1 Occurrences starting 05/17/2025 until 05/17/2026ProL[facility] Hospital Health SystemComment on above:1 Occurrences starting 05/17/2025 until 05/17/2026ytology Cervical or vaginal smear or scraping studyPap Smear Pathology and Cytology Routine Well woman exam with routine gynecological exam Ordered: 12/10/2024[facility] Healthcare Work Phone: comment on above:Ordered: 12/10/2024DHEA-sulfateDHEA- sulfate Lab Routine PCOS (polycystic ovarian syndrome) Ordered: 04/10/2024[facility] HealthcareComment on above:Ordered: 04/10/2024Follicle stimulating hormone Follicle stimulating hormone Lab Routine PCOS (polycystic ovarian syndrome) Ordered: 04/10/2024[facility] HealthcareComment on above:Ordered: 04/10/2024hCG, quantitative, pregnancyhCG, quantitative, Lab Routine PCOS (polycystic ovarian syndrome) Ordered: 04/10/2024[facility] Healthcare Work Phone: comment on above:Ordered: 04/10/2024Hemoglobin A1c/Hemoglobin.total in BloodHemoglobin A1c Lab Routine Pelvic pain in female Abnormal uterine bleeding (AUB) Ordered: 04/10/2024[facility] HealthcareComment on above:Ordered: 04/10/2024Hemoglobin A1c/Hemoglobin.total in BloodHemoglobin A1c Lab Routine Missed menses , unspecified gestational age ([facility]) Ordered: 03/01/2025[facility] HealthcareComment on above:Ordered: 03/01/2025Hepatitis B virus surface Ag [Presence] in Serum or Plasma by ImmunoassayHepatitis B surface antigen Lab Routine Missed menses , unspecified gestational age ([facility]) Ordered: 03/01/2025[facility] HealthcareComment on above:Ordered: 03/01/2025Hepatitis C virus Ab [Presence] in Serum or Plasma by Immunoassay Hepatitis C antibody Lab Routine Missed menses , unspecified gestational age ([facility]) Ordered: 03/01/2025[facility] HealthcareComment on above: Ordered: 03/01/2025HIV-1/HIV-2 antigen/antibody combination immunoassayHIV-1 and HIV-2 antibodies Lab Routine Missed menses , unspecified gestational age ([facility]) Ordered: 03/01/2025[facility] HealthcareComment on above:Ordered: 03/01/2025Human papilloma virus DNA [Presence] in Unspecified specimen by Probe with amplificationHPV DNA probe, amplified Microbiology Routine Well woman exam with routine gynecological exam Ordered: 12/10/2024[facility] HealthcareComment on above:Ordered: 12/10/2024Luteinizing hormoneLuteinizing hormone Lab Routine PCOS (polycystic ovarian syndrome) Ordered: 04/10/2024[facility] HealthcareComment on above:Ordered: 04/10/2024 End: 71-89-5212Cighnicgpeg peptide B [Mass/volume] in BloodB-type natriuretic peptide Lab Routine Chronic hypertension affecting 20 weeks gestation of 1 Occurrences starting 05/17/2025 until 05/17/2026[facility] Work Phone: Comment on above:1 Occurrences starting 05/17/2025 until 05/17/2026Natriuretic peptide B [Mass/volume] in BloodB-type natriuretic peptide Lab Routine Chronic hypertension affecting 20 weeks gestation of 05/17/2025 9:54 AM [facility] HospitalNeisseria gonorrhoeae DNA [Presence] in Unspecified specimen by [facility] with probe detectionNeisseria gonorrhea DNA probe, direct Lab Routine Screen for STD (sexually transmitted disease) Ordered: 04/25/2025[facility] HealthcareComment on above:Ordered: 04/25/2025 End: 64-23-2098Grujcex, urine, 24 hourProtein, urine, 24 hour Lab Routine Chronic hypertension affecting 20 weeks gestation of 1 Occurrences starting 05/17/2025 until 05/17/2026[facility] SystemComment on above:1 Occurrences starting 05/17/2025 until 05/17/2026Reagin Ab [Presence] in Serum by RPRRPR Lab Routine Missed menses , unspecified gestational age ([facility]) Ordered: 03/01/2025[facility] HospitalComment on above:Ordered: 03/01/2025Rubella antibody, IgGRubella antibody, IgG Lab Routine Missed menses , unspecified gestational age ([facility]) Ordered: 03/01/2025[facility] HealthcareComment on above:Ordered: 03/01/2025SURESWAB(R) ADVANCED VAGINITIS PLUS, TMASURESWAB(R) ADVANCED VAGINITIS PLUS, TMA Pathology and Cytology Routine Screen for STD (sexually transmitted disease) Ordered: 04/25/2025[facility] Work Phone: comment on above:Ordered: 04/25/2025Thyrotropin [Units/volume] in Serum or PlasmaTSH Lab Routine PCOS (polycystic ovarian syndrome) Ordered: 04/10/2024[facility] HospitalComment on above:Ordered: 04/10/2024 Thyroxine (T4) free [Mass/volume] in Serum or PlasmaT4, free Lab Routine PCOS (polycystic ovarian syndrome) Ordered: 04/10/2024[facility] HospitalComment on above:Ordered: 04/10/2024 Payers DatePayer CategoryPayerPolgundersen palmer [facility] [id number]-pay2023Medicaid [id number] [id number] 2..[id number] 2.0.1.494828.3.57[id number] 2.0.1.818910.3.579.2.965273-24-1295Xxbjpan [id number] 2.0.1.673791.3.57[id number] 2.16840.1.973794.3.57[id number] 2.16840.1.192368.3.579.[id number] 2.16840.1.133003.3.57[id number] 2.16840.1.378240.3.57[id number] 2..1.747326.3.57[id number] 2..1.682472.3.57[id number] 2.0.1.494436.3.57[id number] 2..1.045531.3.57[id number] 2..1.006923.3.57[id number] 2..1.233579.3.57[id number] 2.840.1.841282.3.57[id number] 2.0.1.029340.3.57[id number] 2.16840.1.566140.3.57[id number] 2.840.1.145777.3.57[id number] 2.16.840.1.675125.3.57[id number] 2.16.840.1.207026.3.57[id number] 2.16.840.1.40[id number] 2.16.840.1.842628.3.579.2.531 Social History DateTypeDetailFacilityStart: 02-22-2024 End: 54-75-4440Pzh Assigned At [facility] [employer] Other Start: 94-35-7221Pzx Assigned At [facility] HospitalTobacco smoking status NHISTobacco smoking consumption unknownNOVA HealthcareStart: 47-54-9626Syk assigned at birthNot on fileProLake Martin Community Hospital Miaoyushang SystemStart: 10-09-2022 End: 15-64-8025Crnrvjn smoking status NHISNever smoked tobaccoProLake Martin Community Hospital Miaoyushang SystemStart: 10-09-2022 End: 39-60-4774Poagfmg use and exposureSmokeless tobacco non-userProLake Martin Community Hospital Miaoyushang SystemStart: 02-22-2024 End: 53-07-9903Ewpjeeyiw beverage intakeEx-drinker (finding)[facility] SystemStart: 02-22-2024 End: 35-42-0262Iwlvbeq of Social functionProMediGrand Lake Joint Township District Memorial Hospital SystemStart: 07-69-5184Rxfbpe the past 12 months we worried whether our food would run out before we got money to buy more.Never TrueProMercy Health Anderson HospitalLily BlueFl[employer] Culture [employer] SystemStart: 09-30-2022 End: 92-42-0236UlnQeuthv (finding)[facility] Hospitaltart: 65-21-1229Qlzbauvfp beverage intakeLifetime non-drinker (finding)[facility] Work Phone: Start: 12-24-2024 End: 45-08-1320Ljwylqwe to SARS-CoV-2 (event)Not sureUnPaulding County HospitalStart: 25-92-3437HjtpxsvwhAIYW Healthcare Functional Status WzmeUprkkxjcfdVfbuptCsmpptbx32-72-0198Dmgtefy Health Questionnaire 2 item (PHQ- 2) [Reported][facility] HospitalCvsevwsakk36-98-8198Hizqtvh Health Questionnaire 2 item (PHQ- 2) [Reported][facility] Work Phone: [phone]) 103-838005933259-20-4553Xkfptmpr - suicide severity rating scale screener - recent [C-SSRS][facility] Work Phone: Clinical Notes 10-11-2022 to 06-24-2025 Note Date & BzfmNkjbGhnkhiid95-73-9511 History of Present illness Narrative* Karoline Casillas, [...] (polycystic ovarian syndrome) 07/30/2024 induced hypertension, antepartum ([facility]) 04/25/2025 Vitamin D deficiency 05/23/2025 H/O pre-eclampsia in prior , currently ([facility]) 05/23/2025 Resolved Ambulatory Problems Diagnosis [...] nursing note reviewed. Exam conducted with a field artillery fire control man present. Vitals: Estimated body mass index is 43.33 kg/m as calculated from the following: Height as of 06/11/24: 5' 8 . Weight as of this encounter: 285 lb. BP: 150/86 Patient's last menstrual period was 12/26/2024. Assessment/Plan ICD-10-CM 1. Second trimester ([facility]) Z34.92 POCT urinalysis dipstick manually resulted 2. 25 weeks gestation of ([facility]) Z3A.25 labetalol (Normodyne) 100 MG tablet 3. H/O pre-eclampsia in prior , currently ([facility]) O09.299 labetalol (Normodyne)100 MG tablet 4. Vitamin D deficiency E55.9 5. Chronic hypertension affecting ([facility]) O10.919 labetalol (Normodyne) 100 MG [...] given for patient to get scheduled at [facility] and [facility] Scheduling. Patient to return to clinic in 2 weeks for routine OB appointment. Patient has had ER visits since last appointment due to headaches and elevated BP. Patient to have no lifting and to rest while off work. 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 Patient does have ultrasound and office visit scheduled with us. Thank you for allowing me to participate in the care of Ellen Ramires. If there any questions please do not hesitate to contact us. Yordy Cruz MD Maternal- Medicine [facility] [address] [place] [address] This document was created with [employer] technology. Though I make every effort to review the dictation as it is transcribed, on occasion the spoken word can be misinterpreted by the technology leading to inappropriate words, phrases, or sentences. This note is addressed to the requesting provider as a consultation for clinical guidance. Specificmedical abbreviations are occasionally used and those are generally approved by the [place]?Board of?Obstetrics and?Gynecology?as well as?Rama tapia abbreviations. The above plan of care was based solely on the diagnoses for which a consultation was requested. ?More frequent testing may be indicated based on her other medical/obstetrical conditions. The management of other or medical conditions is beyond the scope of requested consultation and will c ontinue to be followed by the primary instructor physical or primary care provider. Note to patient: [...] opinion of the practitioner. documented in this encounterCleveland [facility]10-15-[facility] History of Present illness Narrative* Rody [...] (polycystic ovarian syndrome) 07/30/2024 induced hypertension, antepartum ([facility]) 04/25/2025 Vitamin D deficiency 05/23/2025 H/O pre-eclampsia in prior , currently ([facility]) 05/23/2025 Resolved Ambulatory Problems Diagnosis [...] nursing note reviewed. Exam conducted with a field artillery fire control man present. Vitals: Estimated body mass index is 42.99 kg/m as calculated from the following: Height as of 06/11/24: 5' 8 . Weight as of this encounter: 282 lb 12 oz. BP: 130/76 Patient's last menstrual period was 12/26/2024. ASSESSMENT & PLAN ICD-10-CM 1. Second trimester ([facility]) Z34.92 POCT urinalysis dipstick manually resulted 2. 23 weeks gestation of ([facility]) Z3A.23 Return OB: Patient presents [...] WISDOM TOOTH EXTRACTION documented in this encounterSaint Louis University HospitalBubxqwwsel69-49-1488 History of Present illness Narrative* Rody Qiu [...] (polycystic ovarian syndrome) 07/30/2024 induced hypertension, antepartum ([facility]) 04/25/2025 Vitamin D deficiency 05/23/2025 H/O pre-eclampsia in prior , currently ([facility]) 05/23/2025 Resolved Ambulatory Problems Diagnosis [...] nursing note reviewed. Exam conducted with a field artillery fire control man present. Vitals: Estimated body mass index is 43.03 kg/m as calculated from the following: Height as of 06/11/24: 5' 8 . Weight as of 05/23/25: 283 lb. BP: Patient's last menstrual period was 12/26/2024. ASSESSMENT & PLAN ICD-10-CM 1. Second trimester ([facility]) Z34.92 2. 22 weeks gestation of ([facility]) Z3A.22 POCT urinalysis dipstick manually [...] Rody Qiu NP documented in this encounterSaint Louis University HospitalPrvykjswge65-22-5278 History of Present illness Narrative* Rody Qiu [...] (polycystic ovarian syndrome) 07/30/2024 induced hypertension, antepartum ([facility]) 04/25/2025 Vitamin D deficiency 05/23/2025 H/O pre-eclampsia in prior , currently ([facility]) 05/23/2025 Resolved Ambulatory Problems Diagnosis [...] nursing note reviewed. Exam conducted with a field artillery fire control man present. Vitals: Estimated body mass index is 43.03 kg/m as calculated from the following: Height as of 06/11/24: 5' 8 . Weight as of this encounter: 283 lb. BP: 142/82 Patient's last menstrual period was 12/26/2024. ASSESSMENT & PLAN ICD-10-CM 1. Second trimester ([facility]) Z34.92 POCT urinalysis dipstick manually resulted 2. 21 weeks gestation of ([facility]) Z3A.21 3. induced hypertension, antepartum ([facility]) O13.9 4. Vitamin D deficiency E55.9 5. H/O pre-eclampsia in prior , currently ([facility]) O09.299 Return OB: Patient presents [...] Rody Qiu NP documented in this encounterSaint Louis University HospitalXmrqqegjou80-62-2091 History of Present illness Narrative* Bethany Lundy [...] No Have you been seen here at [facility] in a previous ? No Recent ER visits or hospitalizations? Yes, for slicing thumb on mandolin Bring blood sugar log or meter with you today? (Please bring them with you for every visit at [facility]) N/A Flu vaccine (Jun-October)? N/A Any [...] recommended threshold of 160/110. Referenc e: PMID: 43356371, 2021. Blood pressures do increase as progresses [...] preeclampsia prevention as is recommended by the [place] [employer] Committee Opinion No. 743. [...] patient is in complete care of her instructor physical. Patient does have ultrasound and office visit scheduled with us. Thank you for allowing me to participate in the care of Ellen Ramires. If there any questions please do not hesitate to contact us. Yordy Cruz MD Maternal- Medicine [address]st [place] [address] This document was created with [employer] technology. Though I make every effort to review the dictation as it is transcribed, on occasion the spoken word can be misinterpreted by the technology leading to inappropriate words, phrases, or sentences. This note is addressed to the requesting provider as a consultation for clinical guidance. Specificmedical abbreviations are occasionally used and those are generally approved by the [place]?Board of?Obstetrics and?Gynecology?as well as?Rama tapia abbreviations. The above plan of care was based solely on the diagnoses for which a consultation was requested. ?More frequent testing may be indicated based on her other medical/obstetrical conditions. The management of other or medical conditions is beyond the scope of requested consultation and will c ontinue to be followed by the primary instructor physical or primary care provider. Note to patient: [...] Blood drawn for cell-free DNA testing per [facility] phlebotomy. Patient tolerated well. documented in this encounterCleveland Clinic South [facility]09-04-2025 History of Present illness Narrative* Rody [...] (polycystic ovarian syndrome) 07/30/2024 induced hypertension, antepartum ([facility]) 04/25/2025 Resolved Ambulatory Problems Diagnosis Date [...] nursing note reviewed. Exam conducted with a field artillery fire control man present. Vitals: Estimated body mass index is 42.88 kg/m as calculated from the following: Height as of 06/11/24: 5' 8 . Weight as of this encounter: 282 lb. BP: 138/82 Patient's last menstrual period was 12/26/2024. ASSESSMENT & PLAN ICD-10-CM 1. Screening, , for anatomic survey ([facility]) Z36.89 CANCELED: US OB 14+ weeks anatomy scan 2. Second trimester ([facility]) Z34.92 POCT urinalysis dipstick manually resulted 3. 17 weeks gestation of ([facility]) Z3A.17 4. Screen for STD (sexually transmitted disease) Z11.3 SURESWAB(R) ADVANCED VAGINITIS PLUS, TMA CHLAMYDIA TRACHOMATIS (GENITO/STI) Neisseria gonorrhea DNA probe, direct 5. Need for maternal serum alpha-protein (MSAFP) screening ([facility]) Z36.1 Alpha fetoprotein, maternal Alpha fetoprotein, maternal 6. induced hypertension, antepartum ([facility]) O13.9 7. Vitamin D deficiency [...] Caesar Broderick DO documented in this encounterSaint Louis University HospitalCsahfsursw83-55-8153 History of Present illness Narrative* Karoline Casillas, ICT SALES REPRESENTATIVE - 04/11/2025 10:30 AM EDT Reason [...] nursing note reviewed. Exam conducted with a field artillery fire control man present. Vitals: Estimated body mass index is 42.63 kg/m as calculated from the following: Height as of 06/11/24: 5' 8 . Weight as of this encounter: 280 lb 6.4 oz. BP: 140/86 Patient's last menstrual period was 12/26/2024. ASSESSMENT & PLAN ICD-10-CM 1. 15 weeks gestation of ([facility]) Z3A.15 POCT urinalysis dipstick manually resulted 2. Second trimester ([facility]) Z34.92 POCT urinalysis dipstick manually resulted 3. Acute nonintractable headache, unspecified headache type R51.9 4. BP check Z01.30 Patient presents today for a routine obstetrics appointment. Patient is currently 15w1d with a Estimated Date of Delivery: 10/02/25. Patient is having persistent elevated HTN. Discussed patient being referred to [facility] for management and recommendations for Gestational HTN. Patient is agreeable with referral. Patient to be started on Labetalol 200mg BID. Patient given labs and 24 hour urine to have obtained for baseline testing. Patient aware that once lab results are obtained then referral will be completed, so then all results can be sent to [facility] at onetime. Patient to return to clinic in 4 weeks for routine OB appointment. Patient to reach out to office with any concerns/questions. Documented by Karoline Casillas LPN on behalf of: Caesar Broderick DO documented in this encounterSaint Louis University HospitalNogwegkxmu19-32-7222 History of Present illness Narrative* Karoline Casillas [...] nursing note reviewed. Exam conducted with a field artillery fire control man present. Vitals: Estimated body mass index is 42.29 kg/m as calculated from the following: Height as of 24: 5' 8 . Weight as of this encounter: 278 lb 1.9 oz. BP: 138/80 Patient's last menstrual period was 12/26/2024. ASSESSMENT & PLAN ICD-10-CM 1. 13 weeks gestation of ([facility]) Z3A.13 POCT urinalysis dipstick manually resulted 2. Second trimester ([facility]) Z34.92 POCT urinalysis dipstick manually [...] [facility] Patient has been consulted regarding any further [...] Caesar Broderick DO documented in this encounterSaint Louis University HospitalCpkfmkrvnv33-73-2271 History of Present illness Narrative* Melanie Almaraz [...] dipstick manually resulted , unspecified gestational age ([facility]) - Type and screen; Future - ABO/Rh; Future - CBC and differential - Hemoglobin A1c - RPR - Rubella antibody, IgG - Hepatitis B surface antigen - Hepatitis C antibody - HIV-1 and HIV-2 antibodies - Rapid drug screen, urine; Future Encounter for supervision of normal first in first trimester ([facility]) - Rapid drug screen, urine; Future 9 weeks gestation of ([facility]) Nurse Note: Pt uncertain of doing the [place] [employer] to one. Advised pt if she does to make sure both labs and [place] is done at the same time. PVU. Pt did state she had a Vit. D deficiency and has a h/o high blood pressure with G1. [employer] advised patient showed in dating [place] today [...] and [facility]. Patient has also been advised to not [...] Melanie Almaraz MA documented in this encounterSaint Louis University HospitalUajynkeltt74-72-1955 History of Present illness Narrative* Robbie Lopez [...] PRIOR EVALUATION / TREATMENT Has seen Dr. Borderick Had laparoscopy- reports no evidence of endometriosis Reports normal SA Has started metformin and Letrozole/TIC x 5 cycles and Clomid/TIC x 2 cycles--> no conception Hysterosalpingogram: None but reports tubal assessment at time of laparoscopy demonstrated bilateral tubal patency Saline Infused Sonography: None [employer] Pelvic Ultrasound: 2023 FINDINGS: UTERUS: Normal size [...] 10/2024 Thyroid profile includes TSH FT4 Order: [id number] Component Ref Range & Units 2 mo [...] -- -- -- 2.68 -- -labs done [id number] Relationship Status: Have you ever been ? 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 Tadalafil - 10mg as needed Injuries: No STD: No Please select all that are applicable: SA: Yes SA Results: Yes -Done at [facility] 2023- reports was told normal, no [...] family history on file. documented in this encounterFirelands Regional Medical Center Work Phone: 1(481) 274-769905-15-2025 Instructions* Patient Instructions* Robbie Lopez MD - [...] Lopez 01/03/2025 11:05 AM documented in this encounterFirelands Regional Medical Center Work Phone: 1(639) 750-645304-29-2025 History of Present illness Narrative* Kita Griggs [...] nursing note reviewed. Exam conducted with a field artillery fire control man present. Vitals: Estimated body mass index is [...] after allowing sufficient time to take affect. poultry picking machine tender and scissors used to remove affected area. Placed in formalin and sent to pathology. Post-procedure instructions given. Follow Up: as needed Documented by Kita Griggs LPN on behalf of: Caesar Broderick DO documented in this encounterSaint Louis University [id number] History of Present illness Narrative* Melanie Almaraz [...] nursing note reviewed. Exam conducted with a field artillery fire control man present. Vitals: Estimated body mass index is [...] Caesar Broderick DO documented in this encounterSaint Louis University [id number] History of Present illness Narrative* Karoline Casillas [...] Caesar Broderick DO documented in this encounterSaint Louis University [id number] History of Present illness Narrative* Kita Griggs [...] nursing note reviewed. Exam conducted with a field artillery fire control man present. Vitals: Estimated body mass index is [...] Caesar Broderick DO documented in this encounterSaint Louis University HospitalXzohowvrxz03-94-5625 History of Present illness Narrative* Karoline Casillas [...] nursing note reviewed. Exam conducted with a field artillery fire control man present. Vitals: Estimated body mass index is [...] Caesar Broderick DO documented in this encounterSaint Louis University [id number] History of Present illness Narrative* Whitney [employer] - 05/03/2024 11:40 AM EDT Reason for Appointment: Patient ID: Ellen Ramires is a 34 y.o. female who presents for Pre-op Visit Patient presents today for Pre Op appointment. Patient is scheduled to undergo Diagnostic Laparoscopy, possible FLAKITO, possible FOE, possible BSO, possible Chromopertubation on 06/01/[address] Broderick at [facility]. MEDICATIONS Current Outpatient Medications Medication Instructions [...] nursing note reviewed. Exam conducted with a field artillery fire control man present. Vitals: There is no height or [...] reviewed, and patient is to proceed to [facility]. Follow Up: Patient is to follow up between 1-2 weeks post operative to assess proper healing and recovery fromprocedure. Documented by Karoline Casillas LPN on behalf of: Caesar Broderick DO documented in this encounterSaint Louis University [id number] History of Present illness Narrative* Kita Griggs [...] nursing note reviewed. Exam conducted with a field artillery fire control man present. 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 PCP: [facility] Jazmín Referring Physician: Sabiha Aviles [place] [address] documented in this encounterC[facility] Miscellaneous Notes* Telephone Encounter - Sheyla Powell CMA - 03/12/2024 2:47 PM EDT Left message for patient to remind them to bring their most current medication list with them to their appointment. documented in this encounterC[facility] Telephone encounter Note* Telephone Encounter - Sheyla Powell CMA - 03/12/2024 2:47 PM EDT Left message for patient to remind them to bring their most current medication list with them to their appointment. [facility]02-20-[facility] Evaluation note* Encounter Date Diagnosis Assessment [...] the onset of your symptoms of COVID CRMnext Other Chief complaint+Reason for visit Narrative* Chief Complaint sinus pressure, coug h Reason for Visit Contact with and (matt spected) exposure to covid-19 Sore throat Sinusitis [facility] Work Phone: Evaluation note* Diagnosis Onset Date Resolution Status Contact with and (suspected) exposure to covid-19 acuteSore throatacuteSinusitisnoneactive [facility] Work Phone: Evaluation note* Diagnosis Postoperative visit S/P laparoscopic procedure Other postprocedural status documented in this encounter [facility] HealthcareEvaluation note* Diagnosis PCOS (polycystic ovarian syndrome) Polycystic ovaries Encounter for fertility planning documented in this encounter [facility] HealthcareEvaluation note* Diagnosis Pre-op examination Pelvic pain [...] palpitations- Primary Palpitations documented in this encounter [facility]* Diagnosis Encounter for fertility planning Acute cystitis without hematuria PCOS (polycystic ovarian syndrome) Polycystic ovaries Fallopian tube disorder Unspecified noninflammatory disorder of ovary, fallopian tube, and broad ligament documented in this encounter [facility] HealthcareEvaluation note* Diagnosis Well woman exam with routine gynecological exam Routine gynecological examination documented in this encounter [facility] HealthcareEvaluation note* Diagnosis Skin mole documented in this encounter [facility] HealthcareEvaluation noteNo assessment information availableTuscarawas Hospital Work Phone: Evaluation note* Diagnosis Encounter for preprocedural laboratory examination- Primary Abnormal uterine bleeding Unspecified disorder of menstruation and other abnormal bleeding from female genital tract documented in this encounter [facility] Work Phone: Evaluation note* Diagnosis Amenorrhea Absence of menstruation Missed menses , unspecified gestational age ([facility]) Encounter for supervision of normal first in first trimester ([facility]) 9 weeks gestation of ([facility]) Vitamin D deficiency History of hypertension Personal history of other diseases of circulatory system documented in this encounter [facility] HealthcareEvaluation note* Diagnosis 13 weeks gestation of ([facility]) Second trimester ([facility]) state, incidental Acute nonintractable headache, unspecified headache type documented in this encounter [facility] HealthcareEvaluation note* Diagnosis 15 weeks gestation of ([facility]) Second trimester ([facility]) state, incidental Acute nonintractable headache, unspecified headache type BP check Screening for hypertension Gestational hypertension, antepartum ([facility]) induced hypertension, antepartum ([facility]) Transient hypertension of , antepartum documented [facility]* Diagnosis Hypertension affecting in second trimester- Primary [facility] Diagnosis Screening, , for anatomic survey ([facility]) Encounter for anatomic survey Second trimester ([facility]) state, incidental 17 weeks gestation of ([facility]) Screen for STD (sexually transmitted disease) Screening examination for venereal disease Need for maternal serum alpha-protein (MSAFP) screening ([facility]) induced hypertension, antepartum ([facility]) Transient hypertension of , antepartum Vitamin D deficiency documented [facility] encounter [facility]* Diagnosis Chronic 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 Severe obesity due to excess calories affecting , antepartum ([facility]) 20 weeks gestation of documented in this encounter [facility]* 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 Chronic hypertension affecting Severe obesity due to excess calories affecting , antepartum ([facility]) Hypertension affecting in second trimester documented in this encounter [facility]* 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 Chronic hypertension affecting Severe obesity due to excess calories affecting , antepartum ([facility]) Hypertension affecting in second trimester documented [facility] encounter [facility]* Diagnosis Chronic hypertension affecting ([facility])- Primary Second trimester ([facility]) state, incidental 22 weeks gestation of ([facility]) documented in this encounter [facility]* Diagnosis Second trimester ([facility]) state, incidental 21 weeks gestation of ([facility]) induced hypertension, antepartum ([facility]) Transient hypertension of , antepartum Vitamin D deficiency H/O pre-eclampsia in prior , currently ([facility]) documented in this encounter [facility]* Diagnosis Second trimester ([facility]) state, incidental 23 weeks gestation of ([facility]) documented in this encounter [facility]* Diagnosis Chronic hypertension affecting - Primary 20 weeks gestation of Anxiety disorder affecting , 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 Severe obesity due to excess calories affecting , antepartum ([facility]) [facility] Diagnosis Second trimester ([facility]) state, incidental 25 weeks gestation of ([facility]) H/O pre-eclampsia in prior , currently ([facility]) Vitamin D deficiency Chronic hypertension affecting ([facility]) Diabetes mellitus screening Screening for diabetes mellitus documented in this encounter [facility] HealthcareInstructionsNot on filedocumented in this encounterA[facility] SystemInstructionsNot on filedocumented in this encounterA[facility] SystemInstructionsNot on filedocumented in this encounterA[facility] SystemInstructionsNot on filedocumented in this encounterA[facility] System InstructionsNot on filedocumented in this [facility] InstructionsNot on filedocumented in this [facility] InstructionsNot on filedocumented in this encounterA[facility] InstructionsNot on filedocumented in this encounterAden[facility] System InstructionsNot on filedocumented in this [facility] Family History No [...] LABS HM AT [facility] LABS AT PCPSpecialtyDiagnoses / ProceduresReferred By Contact Referred To ContactCardiology Diagnoses Heart palpitations Sabiha Aviles, KRISTNIE-POWER ORIGINATOR [address] [place] [id number] [facility] [address] [place] [address] Referral IDStatusReasonStart DateExpiration DateVisits RequestedVisits [id number] Review Specialty Services Required /[id number] ExamReason CommentsMole removalReasonCommentsInfertilityReasonCommentsAmenorrheaReason CommentsRoutine VisitReasonCommentsgHTNPCOS Care Teams [...] DateEnd Date Kromer, Judy PCP - [facility]7/09/14Team MemberRelationshipSpecialtyStart DateEnd Date Kromer, Judy PCP - [facility]7/09/14Team MemberRelationshipSpecialtyStart DateEnd Date Kromer, Judy PCP - [facility]7/09/14Team MemberRelationshipSpecialtyStart DateEnd Date Kromer, Judy PCP - [facility]7/09/14Team MemberRelationshipSpecialtyStart DateEnd Date Kromer, Judy PCP - [facility]7/09/14Team MemberRelationshipSpecialtyStart DateEnd Date Kromer, Judy PCP - [facility]7/09/14Team MemberRelationshipSpecialtyStart DateEnd Date Kromer, Judy PCP - [facility]7/09/14Team MemberRelationshipSpecialtyStart DateEnd Date [address] [place] PCP - GeneralFamily Medicine11/12/22Team MemberRelationshipSpecialtyStart DateEnd Date [facility] [address] [place], [place] PCP - GeneralFamily Medicine11/12/22Team MemberRelationshipSpecialtyStart DateEnd Date [facility] [address] [place] PCP - GeneralFamily Medicine11/12/22Team MemberRelationshipSpecialtyStart DateEnd Date Kromer, Judy PCP - [facility]02/20/24Team MemberRelationshipSpecialtyStart DateEnd Date Kromer, Judy PCP - [facility]02/20/24Team MemberRelationshipSpecialtyStart DateEnd Date Kromer, Judy PCP - [facility]02/20/24Team MemberRelationshipSpecialtyStart DateEnd Date Kromer, Judy PCP - [facility]02/20/24 Team Status: Inactive Member Role Status Dates Caesar Broderick DO Attending Provider Active Start : December 18, 2024 End: December 18, 2024Team MemberRelationshipSpecialtyStart DateEnd Date June Trinidad LPN Licensed Practical NurseReproductive Endocrinology and Infertility01/01/25Team MemberRelationshipSpecialtyStart DateEnd Date Kromer, Judy PCP - [facility]02/20/24Team MemberRelationshipSpecialtyStart DateEnd Date Kromer, Judy PCP - [facility]02/20/24Team MemberRelationshipSpecialtyStart DateEnd Date Kromer, Judy PCP - [facility]02/20/24Team MemberRelationshipSpecialtyStart DateEnd Date Judy Caal PCP - [facility]02/20/24am MemberRelationshipSpecialtyStart DateEnd Date Services, [facility] [address] [place], [place] PCP - GeneralFamily Medicine11/03/24Team MemberRelationshipSpecialtyStart DateEnd Date Services, [facility] [address] [place], [place] PCP - GeneralFamily Medicine11/03/24Team MemberRelationshipSpecialtyStart DateEnd Date Lima Caalsa PCP - [facility]02/20/24Team MemberRelationshipSpecialtyStart DateEnd Date [facility], [facility] [address] [place], [place] PCP - GeneralFamily Medicine11/03/24Team MemberRelationshipSpecialtyStart DateEnd Date Services, [facility] [address] [place], [place] PCP - GeneralFamily Medicine11/03/24Team MemberRelationshipSpecialtyStart DateEnd Date [facility] [address] [place], [place] PCP - GeneralFamily Medicine11/03/24Team MemberRelationshipSpecialtyStart DateEnd Date Andres Caalyssa PCP - [facility]02/20/24Team MemberRelationshipSpecialtyStart DateEnd Date Afua Judy PCP - [facility]02/20/24Team MemberRelationshipSpecialtyStart DateEnd Date Services, [facility] [address] [place], [place] PCP - GeneralFamily Medicine11/03/24Team MemberRelationshipSpecialtyStart DateEnd Date Judy Caal PCP - [facility]02/20/24 Goals (unrecognized section and content) Goals may be documented in a n alternate section INFORMATION SOURCE (unrecogn ized section and content) DATE CREATED AUTHOR 12/29/2024 [facility] DATE CREATED AUTHOR AUTHOR'S ORGANIZ ATION 01/07/2025 [facility] DATE CREATED AUTHOR AUTHOR'S ORGANIZ ATION 06/19/2025 [facility] DATE CREATED AUTHOR AUTHOR'S ORGANIZ ATION 06/20/2025 [facility] DATE CREATED AUTHOR AUTHOR'S ORGANIZ ATION 06/25/2025 [facility] EPIC FOR RECORDS PERTAINING [...] BE BASED ON THE PRIMARY CLINICAL RECORDS. [employer] provides no warranty or guarantee of the accuracy or completeness of information in this document.
[2025-08-20 10:23] VITALS: BP 96/53; PULSE 90
== END 2025-08-20 10:57 | disposition home or self-care (01) ==
LOC: FBCO 10:08 → FBC 10:10
PROVIDERS: Visit Provider Obstetrics & Gynecology
DX: O16.3 Unspecified maternal hypertension, third trimester (principal); Z3A.33 33 weeks gestation of pregnancy
CPT/HCPCS: 59025